=== PATIENT | female | born 1955 | race Caucasian/White ===

== ENCOUNTER 2017-07-30 08:00 | Outpatient (RCR) | payer MEDICARE, OTHER, SELFPAY | END 2017-07-30 23:59 | LOC: PT 08:00 | PROVIDERS: Visit Provider Orthopaedic Surgery | DX: M54.2 Cervicalgia (principal) | CPT/HCPCS: G8984; G8985; G8986; 97010; 97012; 97014; 97033; 97035; 97110; 97140; 97161; G0283 ==

== ENCOUNTER 2017-08-11 14:01 | Day surgery (SDC) | payer MEDICARE, OTHER, SELFPAY ==
[2017-08-11 14:55] VITALS: BP 137/63; PULSE 58; RESP 18; TEMP 36.6; O2SAT 95
--- NOTE | 2017-08-11 15:04 | HMH.PMPROC ---
- Procedure Date: 08/11/17 Time: 15:15 Anesthesiologist:: Emir Rubalcava CRNA Complications:: None Pre-procedure Diagnosis:: Myofascial pain syndrome Post-procedure Diagnosis:: Same Indications for Procedure:: Very pleasant 61-year-old white female we have been treating for cervical neck pain. She presents her procedure clinic today for her point injections of the cervical paraspinous muscles as well as bilateral trapezius muscles. Procedure Details:: Details of the procedure were spine to the patient. The patient was taken to procedure room and placed in the sitting position. Monitors were applied including noninvasive blood pressure cuff as well as pulse oximeter. The area over the cervical paraspinals as well as trapezius muscles was cleaned using chlorhexidine is cleansing solution. Markers were placed over the cervical paraspinous muscles and trapezius muscles bilaterally. 2 cc of solution containing 0.25% Marcaine +1% lidocaine and 40 mg of Depo-Medrol was injected in 3 different areas over the bilateral cervical paraspinous muscles as well as bilateral trapezius muscles. Plan and Disposition:: She will follow-up with the pain clinic for further evaluation.
[2017-08-11 15:10] VITALS: BP 134/88; PULSE 70; RESP 18
[2017-08-11 15:11] VITALS: BP 130/85; PULSE 80; RESP 20
[2017-08-11 15:13] VITALS: BP 137/63; PULSE 61; RESP 18; O2SAT 95
== END 2017-08-11 15:15 | disposition home or self-care (01) ==
LOC: SC.PAINP 14:03
PROVIDERS: Family Provider Internal Medicine Adolescent Medicine; PCP Internal Medicine Adolescent Medicine; Visit Provider Nurse Anesthetist, Certified Registered
DX: M79.1 Myalgia (principal)
CPT/HCPCS: 20552; J1040

== ENCOUNTER → 2017-08-17 10:51 | Outpatient (CLI) | payer MEDICARE, OTHER, SELFPAY ==
--- NOTE | 2017-08-17 10:55 | MR_ITS ---
MR HEAD/BRAIN WO/W CON ORDERING PHYSICIAN : Amy Jimenez PATIENT AGE: 61 years GENDER: Female INDICATION: Contrast and headaches all over head past 8 weeks.. Also Neck pain. Arm pain: C 6-7 STENOSIS, INCREASED HEADACHES Millimeter hemorrhagic, fingers TECHNIQUE: Precontrast multiplanar multisequence imaging performed. Specifically note T1, T2 weighted images along with FLAIR and diffusion image set utilized Precontrast. ProHance 20 mL used for the postcontrast image set , with subsequent T1 weighted images axial coronal plane FINDINGS Single chronic small vessel deep white matter focus. Specifically noted a small single less than 4 mm mm high signal deep white matter focus at the left frontal lobe just lateral to the anterior horn left lateral ventricle. Axial image 14 coronal 5. In this age patient age patient-most likely reflecting single small vessel ischemic gliotic focus No mass lesion. No territorial infarct. No abnormal areas of enhancement. The cranial cervical junction is normal. Pituitary sella at suprasellar region appears satisfactory. . Posterior fossa unremarkable.. Cerebellum normal Normal enhancement and normal flow at the dural venous sinuses . Mastoid air cells clear bilateral. IACs appear within normal limits and symmetric. Craniovertebral junction satisfactory.. Only Limited views of the uppermost C-spine down to the C3 level to, but I would note this patient with modest underlying volume of the osseous cervical canal at upper C-spine. Modest 11.5-12 mm AP dimension seen at cervical cranial junction at C1 level with similar adequate modest AP dimension throughout the upper C-spine... If cervical related symptoms consider MRI C-spine.. . Scalp and skull unremarkable. Globes, paranasal sinuses orbits unremarkable. Diffusion images unremarkable.. Moderate Engorgement the toes along the nasal turbinates noted bilaterally. ---- IMPRESSION: . No mass lesion. No abnormal areas of enhancement. No acute findings.. No prominent findings. Only Single chronic small vessel deep white ischemic/gliotic single focus noted at the left frontal lobe.. Otherwise unremarkable negative MRI brain with contrast Thank you for this referral.
--- NOTE | 2017-08-17 13:38 | HMH.ITSHM ---
ALBUTEROL 90MCG PHENEGRAN 12.5MG TRIAMCINOLONE TOPICAL DECARA ZITHROMAX Z-BERHANE 250MG LUNESTA 1MG HYDROMORPHONE 10MG LARROTRIGINE 100MG SODIUM BICARBONATE 650MG DONEPEZIL 10MG EFFEXOR XR 75 SEROQUEL 100MG RANITIDINE HYDROCHLORIDE 150MG LEVOTHYROXINE 88MCG RESTASIS LUTEIN 20MG DIAZEPAM 5MG CYCLOBENZAPRINE 5MG LISINOPRIL 2.5MG
== END ==
PROVIDERS: Family Provider Internal Medicine Adolescent Medicine; PCP Internal Medicine Adolescent Medicine; Visit Provider Orthopaedic Surgery
DX: M48.02 Spinal stenosis, cervical region (principal)
CPT/HCPCS: 70553; A9576

== ENCOUNTER 2017-08-19 13:57 | Day surgery (SDC) | payer MEDICARE, OTHER, SELFPAY ==
[2017-08-19 14:20] VITALS: BP 137/71; PULSE 64; RESP 18; O2SAT 94; BMI 35.2
[2017-08-19 15:37] VITALS: BP 128/83; PULSE 71; RESP 20; O2SAT 96
[2017-08-19 15:38] VITALS: BP 128/88; PULSE 63; RESP 20
--- NOTE | 2017-08-19 15:39 | HMH.PMPROC ---
- Procedure Date: 08/19/17 Time: 15:41 Anesthesiologist:: Sagar Kidd MD Complications:: None Pre-procedure Diagnosis:: Postlaminectomy syndrome Post-procedure Diagnosis:: Same Indications for Procedure:: Patient is a pleasant 61-year-old white female we are treating for low back pain secondary to lumbar postlaminectomy syndrome. Patient is currently on intrathecal pain pump therapy. She is currently at 6 mg per day of intrathecal Dilaudid/bupivacaine/ziconotide with 1.3 mcg per day ziconotide. She is still having some increasing pain of her neck and low back. She is scheduled to see Dr. Wood tomorrow for neurosurgical evaluation. We will refill her pump and increase her infusion today. She does have an antalgic gait. Motor strength of the upper and lower extremities is 5/5. There is no gross sensory deficit. We will refill her pump today. Procedure Details:: Informed consent was obtained and the risks and benefits of the procedure was explained to the patient. The patient was taken to the procedure room. The pump was interrogated. The area over the pump was prepped using ChloraPrep. The pump was accessed with a 22-gauge needle. Approximately 6 mL's of the intrathecal solution was withdrawn and discarded. The pump was then refilled with 20 mL's of intrathecal Dilaudid 23 mg/mL plus bupivacaine 9.2 mg/mL plus ziconotide 5 mcg/ml. The pump was interrogated and the infusion was increased to 7 mg per day Dilaudid, 2.8 mg per day bupivacaine, 1.5 mcg per day for ziconotide. The patient tolerated the procedure well with no complication. Plan and Disposition:: We will follow-up with her after her appointment Dr. Wood. She is to let us know of his treatment plan.
[2017-08-19 16:07] VITALS: BP 162/81; PULSE 77; RESP 16; O2SAT 100
== END 2017-08-19 16:09 | disposition home or self-care (01) ==
LOC: SC.PAINP 13:58
PROVIDERS: Family Provider Internal Medicine Adolescent Medicine; PCP Internal Medicine Adolescent Medicine; Visit Provider Nurse Anesthetist, Certified Registered
DX: M96.1 Postlaminectomy syndrome, not elsewhere classified (principal)
CPT/HCPCS: 62370

== ENCOUNTER 2017-08-20 13:00 | Outpatient (RCR) | payer MEDICARE, OTHER, SELFPAY | END 2017-08-20 13:01 | disposition home or self-care (01) | LOC: PT 13:00 | PROVIDERS: Family Provider Internal Medicine Adolescent Medicine; PCP Internal Medicine Adolescent Medicine; Visit Provider Orthopaedic Surgery | DX: M54.2 Cervicalgia (principal) | CPT/HCPCS: 97010; 97014; 97035; 97110; 97140; G0283 ==

== ENCOUNTER 2017-09-04 10:49 | Day surgery (SDC) | payer MEDICARE, OTHER, SELFPAY ==
[2017-09-04 10:58] VITALS: BP 111/78; PULSE 80; RESP 18; TEMP 36.7; O2SAT 96; BMI 34.4
--- NOTE | 2017-09-04 11:51 | HMH.PMPROC ---
- Procedure Date: 09/04/17 Time: 11:51 Anesthesiologist:: Sagar Kidd MD Complications:: None Pre-procedure Diagnosis:: Degenerative disc disease of the cervical spine with cervical radiculopathy symptoms. Post-procedure Diagnosis:: Same Indications for Procedure:: This patient is a pleasant 61-year-old white female who we are treating for neck pain and low back pain with degenerative disease of the cervical spinal cervical radiculopathy symptoms as well as postlaminectomy syndrome of the bar spine. She has an intrathecal Dilaudid/bupivacaine/ziconotide pain pump in place. She is doing well with her pump. It does help her low back pain. She is having some neck pain with cervical radiculopathy symptoms. We will do a cervical epidural steroid injection under fluoroscopy today. Procedure Details:: Cervical epidural steroid injection under fluoroscopy Informed consent was obtained and the risks and benefits of the procedure was explained to the patient. The patient was taken to the procedure room placed prone on the procedure table. The neck was prepped using ChloraPrep. The skin and subcutaneous tissues were anesthetized using lidocaine. I placed a 18-gauge epidural needle into the C6-C7 interspace and advanced using [id number] to air and fluoroscopic guidance. After confirmation of needle placement in the epidural space with dye, I injected 3 mL's lidocaine 1.5% and Depo-Medrol 80 mg. The patient tolerated the procedure well with no complications. Plan and Disposition:: Follow up with her in 2 weeks. She can resume physical therapy next week. We will reevaluate her symptoms at that time.
[2017-09-04 11:53] VITALS: BP 155/87; PULSE 87; RESP 18; O2SAT 98
[2017-09-04 11:54] VITALS: BP 156/86; PULSE 87; RESP 18; O2SAT 100
--- NOTE | 2017-09-04 11:59 | P.PCN_ITS ---
- Procedure Date: 09/04/17 Time: 11:51 Anesthesiologist:: Sagar Kidd MD Complications:: None Pre-procedure Diagnosis:: Degenerative disc disease of the cervical spine with cervical radiculopathy symptoms. Post-procedure Diagnosis:: Same Indications for Procedure:: This patient is a pleasant 61-year-old white female who we are treating for neck pain and low back pain with degenerative disease of the cervical spinal cervical radiculopathy symptoms as well as postlaminectomy syndrome of the bar spine. She has an intrathecal Dilaudid/bupivacaine/ziconotide pain pump in place. She is doing well with her pump. It does help her low back pain. She is having some neck pain with cervical radiculopathy symptoms. We will do a cervical epidural steroid injection under fluoroscopy today. Procedure Details:: Cervical epidural steroid injection under fluoroscopy Informed consent was obtained and the risks and benefits of the procedure was explained to the patient. The patient was taken to the procedure room placed prone on the procedure table. The neck was prepped using ChloraPrep. The skin and subcutaneous tissues were anesthetized using lidocaine. I placed a 18- gauge epidural needle into the C6-C7 interspace and advanced using loss-of- resistance to air and fluoroscopic guidance. After confirmation of needle placement in the epidural space with dye, I injected 3 mL's lidocaine 1.5% and Depo-Medrol 80 mg. The patient tolerated the procedure well with no complications. Plan and Disposition:: Follow up with her in 2 weeks. She can resume physical therapy next week. We will reevaluate her symptoms at that time.
[2017-09-04 12:10] VITALS: BP 149/82; PULSE 79; RESP 18; TEMP 36.7; O2SAT 96
== END 2017-09-04 12:15 ==
LOC: SC.PAINP 10:51
PROVIDERS: Family Provider Internal Medicine Adolescent Medicine; PCP Internal Medicine Adolescent Medicine; Visit Provider Anesthesiology
DX: M50.10 Cervical disc disorder with radiculopathy, unspecified cervical region (principal); M96.1 Postlaminectomy syndrome, not elsewhere classified
CPT/HCPCS: 62321; J1040; Q9966

== ENCOUNTER → 2017-09-15 12:56 | Outpatient (CLI) | payer MEDICARE, OTHER, SELFPAY ==
--- NOTE | 2017-09-15 12:59 | US_ITS ---
US retroperitoneal comp HISTORY: ITS.REASON: PROTEINURIA ORDERING PHYSICIAN: Aisha Jenkins PATIENT AGE: 61 years COMPARISON: None FINDINGS: RIGHT KIDNEY:10 x 4 x 7 cm with mild cortical thinning. No hydronephrosis or renal mass. LEFT KIDNEY:9 x 4 x 5 cm with mild cortical thinning. No hydronephrosis or renal mass. There is some scarring along the lower pole the left kidney OTHER FINDINGS: No other pertinent findings IMPRESSION: Mild renal cortical thinning. No hydronephrosis
== END ==
PROVIDERS: Family Provider Internal Medicine Adolescent Medicine; PCP Internal Medicine Adolescent Medicine; Visit Provider Hospitalist
DX: R80.9 Proteinuria, unspecified (principal)
CPT/HCPCS: 76770

== ENCOUNTER → 2017-09-25 10:31 | Day surgery (SDC) | payer MEDICARE, OTHER, SELFPAY ==
[2017-09-25 12:06] VITALS: BP 99/74; PULSE 73; RESP 20; TEMP 36.4; O2SAT 99; BMI 35.2
[2017-09-25 12:41] VITALS: BP 118/78; PULSE 83; RESP 18; O2SAT 98
[2017-09-25 12:44] VITALS: BP 151/81; PULSE 69; RESP 18; O2SAT 95
--- NOTE | 2017-09-25 12:53 | P.PCN_ITS ---
- Procedure Date: 09/25/17 Time: 12:44 Anesthesiologist:: Sagar Kidd MD Complications:: None Pre-procedure Diagnosis:: Degenerative disc disease of lumbar spine with lumbar radiculopathy symptoms. Degenerative disease of the cervical spine with cervical radiculopathy symptoms. Post-procedure Diagnosis:: Same Indications for Procedure:: This patient is a pleasant 61-year-old white female who we are treating for neck pain and low back pain with radiculopathy symptoms. She has an intrathecal Dilaudid/bupivacaine/ziconotide pain pump in place. She is doing well with her pump. She also recently had a cervical epidural steroid injection. This also did help her tremendously. We will refill her pump today. Currently is going at 7 mg per day of intrathecal Dilaudid/bupivacaine/ ziconotide. She does have a normal gait. Motor strength of the upper and lower extremities is 5/5. There is no gross sensory deficit. Procedure Details:: Pain pump refill informed consent was obtained and the risks and benefits of the procedure was explained to the patient. The patient was taken to the procedure room. The pump was interrogated. The area over the pump was prepped using ChloraPrep. The pump was accessed with a 22-gauge needle. Approximately 7 mL's of the intrathecal solution was withdrawn and discarded. The pump was then refilled with 20 mL's of intrathecal Dilaudid 23 mg per ml plus bupivacaine 9.2 mg/mL plus ziconotide 5 mcg per ml. The pump was interrogated and the infusion was continued at 7 mg per day based on Dilaudid. The patient tolerated the procedure well with no complication. Plan and Disposition:: We will schedule for a third cervical epidural steroid injection. She is to continue with her therapy for her neck pain. We will follow-up with her after her next epidural steroid injection. At her next pump refill, we will increase her intrathecal ziconotide concentration.
[2017-09-25 13:11] VITALS: BP 135/75; PULSE 66; RESP 20; TEMP 36.4; O2SAT 98
[2017-09-25 14:02] LABS: Amphetamine/Metha Screen,Urine Negative ng/mL (<1000); Barbiturates Screen,Urine Negative ng/mL (<200); Benzodiazepines Screen,Urine Positive ng/mL (200); Cannabinoid Screen,Urine Negative ng/mL (<50); Cocaine Screen,Urine Negative ng/g (<300); Methadone Screen,Urine Negative ng/mL (<300); Opiate Screen,Urine Positive ng/mL (<300); Phencyclidine Screen,Urine Negative ng/mL (<25)
[2017-09-30 13:13] LABS: Codeine Negative (Cutoff=100); Hydrocodone Negative (Cutoff=100); Hydromorphone Positive (.); Morphine Negative (Cutoff=100)
[2017-09-30 13:19] LABS: Opiates Positive (.)
== END ==
PROVIDERS: Family Provider Internal Medicine Adolescent Medicine; PCP Internal Medicine Adolescent Medicine; Visit Provider Anesthesiology
DX: M51.16 Intervertebral disc disorders with radiculopathy, lumbar region (principal); M50.10 Cervical disc disorder with radiculopathy, unspecified cervical region
CPT/HCPCS: 80305; 80361; 80365; 95991; G0480

== ENCOUNTER 2017-10-09 09:03 | Day surgery (SDC) | payer MEDICARE, OTHER, SELFPAY ==
[2017-10-09 09:22] VITALS: BP 143/81; PULSE 67; TEMP 36.4; O2SAT 94; BMI 35.2
[2017-10-09 10:15] VITALS: BP 156/83; PULSE 57; RESP 18
[2017-10-09 10:17] VITALS: RESP 20
[2017-10-09 10:19] VITALS: BP 174/110; PULSE 65; RESP 20
[2017-10-09 10:23] VITALS: BP 146/86; PULSE 63; RESP 18; TEMP 36.4; O2SAT 95
--- NOTE | 2017-10-09 10:28 | HMH.PMPROC ---
- Procedure Date: 10/09/17 Time: 10:28 Anesthesiologist:: Sagar Kidd MD Complications:: None Pre-procedure Diagnosis:: Degenerative disc disease of cervical spine with cervical radiculopathy symptoms Post-procedure Diagnosis:: Same Indications for Procedure:: This patient is a pleasant 61-year-old white female who we are treating for neck pain, low back pain with radiculopathy symptoms. She currently has an intrathecal Dilaudid/bupivacaine/ziconotide pain pump in place. She is having some neck pain with radicular symptoms into the right shoulder and right arm. We will do a cervical epidural steroid injection today. Her previous cervical epidural steroid injection helped her tremendously. Procedure Details:: Cervical epidural steroid injection under fluoroscopy Informed consent was obtained and the risks and benefits of the procedure was explained to the patient. The patient was taken to the procedure room placed prone on the procedure table. The neck was prepped using ChloraPrep. The skin and subcutaneous tissues were anesthetized using lidocaine. I placed a 18-gauge epidural needle into the C5-C6 interspace and advanced using [id number] to air and fluoroscopic guidance. After confirmation of needle placement in the epidural space with dye, I injected 3 mL's lidocaine 1.5% and Depo-Medrol 80 mg. The patient tolerated the procedure well with no complications. Plan and Disposition:: We will follow-up with her in 2 weeks. We will reevaluate her symptoms at that time. Again at her next pump refill. We will increase her intrathecal ziconotide concentration.
--- NOTE | 2017-10-09 10:43 | P.PCN_ITS ---
- Procedure Date: 10/09/17 Time: 10:28 Anesthesiologist:: Sagar Kidd MD Complications:: None Pre-procedure Diagnosis:: Degenerative disc disease of cervical spine with cervical radiculopathy symptoms Post-procedure Diagnosis:: Same Indications for Procedure:: This patient is a pleasant 61-year-old white female who we are treating for neck pain, low back pain with radiculopathy symptoms. She currently has an intrathecal Dilaudid/bupivacaine/ziconotide pain pump in place. She is having some neck pain with radicular symptoms into the right shoulder and right arm. We will do a cervical epidural steroid injection today. Her previous cervical epidural steroid injection helped her tremendously. Procedure Details:: Cervical epidural steroid injection under fluoroscopy Informed consent was obtained and the risks and benefits of the procedure was explained to the patient. The patient was taken to the procedure room placed prone on the procedure table. The neck was prepped using ChloraPrep. The skin and subcutaneous tissues were anesthetized using lidocaine. I placed a 18- gauge epidural needle into the C5-C6 interspace and advanced using loss-of- resistance to air and fluoroscopic guidance. After confirmation of needle placement in the epidural space with dye, I injected 3 mL's lidocaine 1.5% and Depo-Medrol 80 mg. The patient tolerated the procedure well with no complications. Plan and Disposition:: We will follow-up with her in 2 weeks. We will reevaluate her symptoms at that time. Again at her next pump refill. We will increase her intrathecal ziconotide concentration.
== END 2017-10-09 10:25 | disposition home or self-care (01) ==
LOC: SC.PAINP 09:04
PROVIDERS: Family Provider Internal Medicine Adolescent Medicine; PCP Internal Medicine Adolescent Medicine; Visit Provider Anesthesiology
DX: M50.10 Cervical disc disorder with radiculopathy, unspecified cervical region (principal)
CPT/HCPCS: 62321; J1040; Q9966

== ENCOUNTER 2017-10-12 05:55 | Emergency (ER) | payer MEDICARE, OTHER, SELFPAY ==
[2017-10-12 05:56] VITALS: BP 161/122; PULSE 119; RESP 20; TEMP 36.8; O2SAT 96; BMI 34.4
--- NOTE | 2017-10-12 06:08 | PC.NURSE ---
UNABLE TO OBTAIN ACCURATE BP DUE TO PT WITH MOVEMENT AND PAIN.
--- NOTE | 2017-10-12 06:17 | HMH.EDLOEX ---
ED Disposition Clinical Impression: Lumbar disc disease with radiculopathy Disposition: Home, Self-Care Condition on Discharge: Good Instructions: DI for Low Back Pain Additional Instructions: see dr orourke this am Referrals: Marc Rodriguez MD [Primary Care Provider] - - Critical Care Critical Care Time: No Attestation: On 10/12/17, the high probability of a clinically significant, sudden or life threatening deterioration of the following system(s) required my full and direct attention, intervention and personal management. The time I documented below is in addition to time spent performing reported procedures but includes the following listed in this critical care notation. Medical Decision Making - Medical Records Medical records reviewed: Yes: I reviewed the patient's medical records. Vital Signs: 10/12/17 05:56 10/12/17 07:44 Temperature 98.2 F Temperature Source Oral Pulse Rate [Left Brachial] 119 H 66 Respiratory Rate 20 16 Blood Pressure [Left Arm] 161/122 136/64 Blood Pressure Mean [Left Arm] 135 88 Blood Pressure Source [Left Arm] Automatic Cuff Automatic Cuff Blood Pressure Position [Left Arm] Sitting Sitting 02 Sat by Pulse Oximetry 96 96 Oxygen Delivery Method Room Air Room Air - Lab Data Lab results reviewed: Yes: I reviewed the patient's lab results. Lab Results 10/12/17 06:25: WBC 6.9, RBC 4.47, Hgb 13.9, Hct 43.5, MCV 97.3, MCH 31.2, MCHC 32.0, RDW 13.7, Plt Count 280, MPV 7.6, Neut % (Auto) 69.8, Lymph % (Auto) 23.3, [place] % (Auto) 5.8, Eos % (Auto) 0.6, Baso % (Auto) 0.4, Neut # (Auto) 4.8, Lymph # (Auto) 1.6, [place] # (Auto) 0.4, Eos # (Auto) 0.0, Baso # (Auto) 0.0 10/12/17 06:25: Sodium 147 H, Potassium 3.9, Chloride 108 H, Carbon Dioxide 27, Anion Gap 15.9 H, BUN 23 H, Creatinine 1.14 H, Estimated Creat Clear 80, Estimated GFR 48 L, Est GFR ( Amer) 58 L, Glucose 114 H, Calcium 9.9, Total Bilirubin 0.3, AST 19, ALT 35, Alkaline Phosphatase 107, Total Protein 8.0, Albumin 3.8, Globulin 4.2 H, Albumin/Globulin Ratio 0.9 L Result diagrams: 10/12/17 06:25 10/12/17 06:25 Orders (Tests/Meds): ED MEDICATIONS Generic Name Dose Route Start Last Admin Trade Name Pradeepq PRN Reason Stop Dose Admin Sodium Chloride 2 ml 10/12/17 06:24 10/12/17 06:37 Saline Flush 10ml Syringe IV 11/11/17 06:23 2 ml NEEDED PRN Administration to Dilute Lorazepam inj Discontinued Medications Generic Name Dose Route Start Last Admin Trade Name Pradeepq PRN Reason Stop Dose Admin Ketorolac Tromethamine 30 mg 10/12/17 06:24 10/12/17 06:37 Toradol 30mg/Ml Vial IV 10/12/17 06:25 30 mg ONCE ONE Administration Lorazepam 0.5 mg 10/12/17 06:24 10/12/17 06:36 Ativan 2mg/Ml Vial IV 10/12/17 06:25 0.5 mg ONCE ONE Administration Meperidine HCl 25 mg 10/12/17 07:22 Meperidine 25mg/Ml 1ml Syringe IV 10/12/17 07:23 ONCE ONE Meperidine HCl 25 mg 10/12/17 07:34 10/12/17 07:40 Meperidine 75mg/Ml 1ml Syringe IV 10/12/17 07:35 25 mg ONCE ONE Administration Methylprednisolone Sodium Succinate 125 mg 10/12/17 06:33 10/12/17 06:37 Solu-Medrol 125mg/2ml Vial IV 10/12/17 06:34 125 mg ONCE ONE Administration Promethazine HCl 12.5 mg 10/12/17 07:22 10/12/17 07:39 Phenergan 25mg/Ml 1ml Vial IV 10/12/17 07:23 12.5 mg ONCE ONE Administration Sodium Chloride 25 ml 10/12/17 07:22 10/12/17 07:41 Sod Chlor 0.9% 25ml Bag IV 10/12/17 07:23 Not Given ONCE ONE ORDERS Category Date Time Status CT lumbar spine wo con Stat Cat Scan 10/12/17 06:22 Taken CBC [Complete Blood Count Auto Diff] Stat Lab 10/12/17 06:25 Results ESR [Erythrocyte Sedimentation Rate] Stat Lab 10/12/17 06:25 Results - Radiology Data #1 Image(s): Tib/Fib Image Reviewed: Yes I reviewed the patient's radiology image Preliminary Findings: No Fracture Seen - CT Data CT Scan: L-Spine Time Received: 07:[address] Reviewed: Yes: I have jeremíase
--- NOTE | 2017-10-12 06:21 | ED_ITS ---
ED Disposition Clinical Impression: Lumbar disc disease with radiculopathy Disposition: Home, Self-Care Condition on Discharge: Good Instructions: DI for Low Back Pain Additional Instructions: see dr orourke this am Referrals: Marc Rodriguez MD [Primary Care Provider] - - Critical Care Critical Care Time: No Attestation: On 10/12/17, the high probability of a clinically significant, sudden or life threatening deterioration of the following system(s) required my full and direct attention, intervention and personal management. The time I documented below is in addition to time spent performing reported procedures but includes the following listed in this critical care notation. Medical Decision Making - Medical Records Medical records reviewed: Yes: I reviewed the patient's medical records. Vital Signs: 10/12/17 05:56 10/12/17 07:44 Temperature 98.2 F Temperature Source Oral Pulse Rate [Left Brachial] 119 H 66 Respiratory Rate 20 16 Blood Pressure [Left Arm] 161/122 136/64 Blood Pressure Mean [Left Arm] 135 88 Blood Pressure Source [Left Arm] Automatic Cuff Automatic Cuff Blood Pressure Position [Left Arm] Sitting Sitting 02 Sat by Pulse Oximetry 96 96 Oxygen Delivery Method Room Air Room Air - Lab Data Lab results reviewed: Yes: I reviewed the patient's lab results. Lab Results 10/12/17 06:25: WBC 6.9, RBC 4.47, Hgb 13.9, Hct 43.5, MCV 97.3, MCH 31.2, MCHC 32.0, RDW 13.7, Plt Count 280, MPV 7.6, Neut % (Auto) 69.8, Lymph % (Auto) 23.3 , [place] % (Auto) 5.8, Eos % (Auto) 0.6, Baso % (Auto) 0.4, Neut # (Auto) 4.8, Lymph # (Auto) 1.6, [place] # (Auto) 0.4, Eos # (Auto) 0.0, Baso # (Auto) 0.0 10/12/17 06:25: Sodium 147 H, Potassium 3.9, Chloride 108 H, Carbon Dioxide 27, Anion Gap 15.9 H, BUN 23 H, Creatinine 1.14 H, Estimated Creat Clear 80, Estimated GFR 48 L, Est GFR ( Amer) 58 L, Glucose 114 H, Calcium 9.9, Total Bilirubin 0.3, AST 19, ALT 35, Alkaline Phosphatase 107, Total Protein 8.0 , Albumin 3.8, Globulin 4.2 H, Albumin/Globulin Ratio 0.9 L Result diagrams: 10/12/17 06:25 10/12/17 06:25 Orders (Tests/Meds): ED MEDICATIONS Generic Name Dose Route Start Last Admin Trade Name Freq PRN Reason Stop Dose Admin Sodium Chloride 2 ml 10/12/17 06:24 10/12/17 06:37 Saline Flush 10ml Syringe IV 11/11/17 06:23 2 ml NEEDED PRN Administration to Dilute Lorazepam inj Discontinued Medications Generic Name Dose Route Start Last Admin Trade Name Freq PRN Reason Stop Dose Admin Ketorolac Tromethamine 30 mg 10/12/17 06:24 10/12/17 06:37 Toradol 30mg/Ml Vial IV 10/12/17 06:25 30 mg ONCE ONE Administration Lorazepam 0.5 mg 10/12/17 06:24 10/12/17 06:36 Ativan 2mg/Ml Vial IV 10/12/17 06:25 0.5 mg ONCE ONE Administration Meperidine HCl 25 mg 10/12/17 07:22 Meperidine 25mg/Ml 1ml Syringe IV 10/12/17 07:23 ONCE ONE Meperidine HCl 25 mg 10/12/17 07:34 10/12/17 07:40 Meperidine 75mg/Ml 1ml Syringe IV 10/12/17 07:35 25 mg ONCE ONE Administration Methylprednisolone Sodium Succinate 125 mg 10/12/17 06:33 10/12/17 06:37 Solu-Medrol 125mg/2ml Vial IV 10/12/17 06:34 125 mg ONCE ONE Administration Promethazine HCl 12.5 mg 10/12/17 07:22 10/12/17 07:39 Phenergan 25mg/Ml 1ml Vial IV
--- NOTE | 2017-10-12 06:22 | CT_ITS ---
CT lumbar spine wo con Ordering Physician: Ollie Milton MD Patient Age: 61 years: Female HISTORY: ITS.REASON: back/leg pain Back and leg pain left leg pain no trauma TECHNIQUE: Axial helical CT scanning performed through the lumbar spine with sagittal coronal reconstructions on CT workstation. Vertebral bodies are intact with no compression fractures no significant lesions. Minimal Schmorl's node inferior L2 with scant barely evident Schmorl's node inferior L1 and T12 inferior endplate. There is mild levoscoliosis most evident. L4/5. L5/S1. Borderline disc space narrowing with mild central disc bulge continue to left of midline. May just text the left S1 nerve root. Mild encroachment upon the left foramen mild facet hypertrophy associated as well. Moderate facet hypertrophy, arthropathy. pain pump device projected over the upper right buttock L4/5 diffuse disc bulge. Mild bilateral foraminal encroachment from such. Facet and ligament flavum hypertrophy along with the disc bulge yields moderate central canal stenosis. L3/4. Scant circumferential disc bulge posteriorly. Mild foraminal encroachment. Mild posterior element ligament flavum hypertrophy yields borderline to mild central canal stenosis. L2/3. Mild facet hypertrophy slightly narrows the spinal canal borderline spinal stenosis. Scant disc bulge most evident towards left foramen. L1/2 disc intactOnly slight narrowed posteriorly. The infusion catheter extending up to the T12 level. Transverse processes are intact no paraspinal mass. SI joints satisfactory sacrum satisfactory there appears to be anastomosis at the rectosigmoid junction region. Heart IMPRESSION: 1. No acute findings lumbar spine. No lesion or compression fracture. 2. Degenerative changes lumbar spineAs discussed above. L4/5 spinal stenosis most evident at this level. This is due to the diffuse generous disc bulge along with generous ligament flavum & and facet hypertrophy. 3 Other levels described in text pain pump. Overlying superior right buttocks epidural catheter extending up to the T12 level noted.
--- NOTE | 2017-10-12 06:26 | XR_ITS ---
XR tibia fibula LT 2V Ordering Physician: Ollie Milton MD Patient Age: 61 years: Female HISTORY: ITS.REASON: pain COMPARISON :None. FINDINGS TECHNIQUE Two-view left lower leg Findings. The tibia and fibula are intact with no prior. Bones adequately mineralized. 2 views of the knee and ankle are included on this lower leg series. Limited views of the show early degenerative changes most evident at medial compartment. No acute findings at these limited views of knee or ankle IMPRESSION: Negative left lower leg. No fracture.
[2017-10-12 06:49] LABS: Basophils % 0.4 % (0.1-2.0); Eosinophils % 0.6 % (0.1-12.0); Hematocrit 43.5 % (37.0-47.0); Hemoglobin 13.9 g/dL (12.2-16.2); Lymphocytes # 1.6 K/mm3 (0.7-4.5); Lymphocytes % 23.3 K/mm3 (10-50); Mean Corpuscular Hemoglobin 31.2 pg (27.0-31.2); Mean Corpuscular Volume 97.3 fl (81-99); Mean Platelet Volume 7.6 fl (7.4-10.4); Monocytes # 0.4 K/mm3 (0.1-1.0); Monocytes % 5.8 % (1.7-9.3); Neutrophils # 4.8 K/mm3 (1.8-7.8); Neutrophils % 69.8 % (37.0-80.0); Platelet Count 280 K/mm3 (142-424); Red Blood Count 4.47 M/mm3 (4.20-5.40); Red Cell Distribution Width 13.7 % (11.5-17.5); White Blood Count 6.9 K/mm3 (4.8-10.8)
[2017-10-12 07:03] LABS: Alanine Aminotransferase 35 U/L (12-78); Albumin Level 3.8 gm/dL (3.4-5.0); Albumin/Globulin Ratio 0.9 (1.1-1.8); Alkaline Phosphatase 107 U/L (46-116); Anion Gap 15.9 mEq/L (5-15); Aspartate Amino Transferase 19 U/L (15-37); Bilirubin,Total 0.3 mg/dL (0.2-1.0); Blood Urea Nitrogen 23 mg/dL (7-18); Calcium 9.9 mg/dL (8.5-10.1); Carbon Dioxide 27 mmol/L (21.0-32.0); Chloride 108 mmol/L (98-107); Creatinine Clearance Estimated 80 mL/min (0-300); Creatinine,Serum 1.14 mg/dL (0.55-1.02); Estimated Glomerular Filt Rate 48 ml/min (>60); GFR (African American) 58 ML/MIN (>60); Globulin 4.2 gm/dl (1.3-3.2); Glucose 114 mg/dL (74-106); Potassium 3.9 mmoL/L (3.5-5.1); Sodium 147 mmol/L (136-145)
--- NOTE | 2017-10-12 07:30 | PC.NURSE ---
report recieved from NICOLASA Dewitt at shift change
--- NOTE | 2017-10-12 07:43 | PC.NURSE ---
Dr Milton speaking with Dr Kidd.
[2017-10-12 07:44] VITALS: BP 136/64; PULSE 66; RESP 16; O2SAT 96
--- NOTE | 2017-10-12 07:46 | PC.NURSE ---
Pt to be discharged and go to Dr. Kidd office.
[2017-10-12 07:50] LABS: Erythrocyte Sedimentation Rate 41 mm/hr (0-30)
[2017-10-12 08:14] VITALS: BP 141/71; PULSE 70; RESP 16; TEMP 36.7; O2SAT 98
== END 2017-10-12 08:14 | disposition home or self-care (01) ==
PROVIDERS: Emergency Provider Emergency Medicine; Family Provider Internal Medicine Adolescent Medicine; PCP Internal Medicine Adolescent Medicine
DX: M51.16 Intervertebral disc disorders with radiculopathy, lumbar region (principal); E78.5 Hyperlipidemia, unspecified; R56.9 Unspecified convulsions; Z79.899 Other long term (current) drug therapy; Z88.1 Allergy status to other antibiotic agents; Z88.6 Allergy status to analgesic agent
CPT/HCPCS: 72131; 73590; 80053; 85025; 85651; 96374; 96375; 99212; 99283

== ENCOUNTER → 2017-10-12 08:29 | Outpatient (POV) | payer MEDICARE, OTHER, SELFPAY ==
[2017-10-12 08:49] VITALS: BP 148/87; PULSE 66; RESP 20; BMI 344531.0
--- NOTE | 2017-10-12 09:16 | HMH.PAINSOAP ---
[facility] Pain Management SOAP Note Subjective:: She is a pleasant 61-year-old white female who presents today for an emergency room visit due to increased left leg pain. This pain is different than her typical neck and back pain. She is having electric shocklike pain from above the knee to the ankle on her left leg. This pain began in the morning after she got up to go the bathroom. Patient had a CT report in the ER that did not show any new pathology. Patient is currently on intrathecal pain pump with Dilaudid 7 mg a day, bupivacaine 2.8 mg a day and Prialt 1.5 mcg a day. Patient went to the ER and received Demerol, Ativan, Solu-Medrol. Patient states that her pain is relieved a little bit at this time. Patient rates her pain a 10 out of 10 when it occurs. It is intermittent in nature. Patient's leg is hypersensitive she is unable to have clothing touch her leg. Objective:: Physical Exam General: Alert and oriented x3, no acute distress, pleasant and cooperative, [on room air] Lungs: Resps E/U, Symmetrical chest expansion, Eyes: PERRL Musculoskeletal: Flexion and extension of lumbar and cervical spine somewhat guarded secondary to pain, deep tendon reflexes normal, strength in upper and lower extremities [5/5], [abnormal gait noted] Neurological: speech clear, keno clerk equal, no gross sensory deficits Assessment:: Active disc disease of the cervical spine and cervical radiculopathy, postlaminectomy, fibromyalgia Plan:: Given the nature of the pain we will start the patient on gabapentin 300 mg 1 p.o. 3 times daily. She is taking this in the past and tolerated it without side effects. We will also give her tramadol 1-2 tabs 3 times daily for 2 weeks. We will also start Flexeril 10 mg 1 p.o. 3 times daily as needed. The patient and I discussed the possibility of shingles. Patient has had the vaccination. Patient will contact her office if the rash breaks out and we will start her on acyclovir. I spoke with Dr. Kidd in regards to this treatment plan he will follow up with her on Thursday. This note was dictated using voice recognition software and may contain errors or omissions
--- NOTE | 2017-10-12 09:22 | P.CONS_ITS ---
[facility] Pain Management SOAP Note Subjective:: She is a pleasant 61-year-old white female who presents today for an emergency room visit due to increased left leg pain. This pain is different than her typical neck and back pain. She is having electric shocklike pain from above the knee to the ankle on her left leg. This pain began in the morning after she got up to go the bathroom. Patient had a CT report in the ER that did not show any new pathology. Patient is currently on intrathecal pain pump with Dilaudid 7 mg a day, bupivacaine 2.8 mg a day and Prialt 1.5 mcg a day. Patient went to the ER and received Demerol, Ativan, Solu-Medrol. Patient states that her pain is relieved a little bit at this time. Patient rates her pain a 10 out of 10 when it occurs. It is intermittent in nature. Patient's leg is hypersensitive she is unable to have clothing touch her leg. Objective:: Physical Exam General: Alert and oriented x3, no acute distress, pleasant and cooperative, [ on room air] Lungs: Resps E/U, Symmetrical chest expansion, Eyes: PERRL Musculoskeletal: Flexion and extension of lumbar and cervical spine somewhat guarded secondary to pain, deep tendon reflexes normal, strength in upper and lower extremities [5/5], [abnormal gait noted] Neurological: speech clear, software tools build engineer equal, no gross sensory deficits Assessment:: Active disc disease of the cervical spine and cervical radiculopathy, postlaminectomy, fibromyalgia Plan:: Given the nature of the pain we will start the patient on gabapentin 300 mg 1 p.o. 3 times daily. She is taking this in the past and tolerated it without side effects. We will also give her tramadol 1-2 tabs 3 times daily for 2 weeks. We will also start Flexeril 10 mg 1 p.o. 3 times daily as needed. The patient and I discussed the possibility of shingles. Patient has had the vaccination. Patient will contact her office if the rash breaks out and we will start her on acyclovir. I spoke with Dr. Kidd in regards to this treatment plan he will follow up with her on Thursday. This note was dictated using voice recognition software and may contain errors or omissions
--- NOTE | 2017-10-12 16:32 | PC.PHONENOTE ---
called in Rx for Gabapentin 300mg TID with no refills, Tramadol 50mg, 1-2 tab TIDP #30 with no refills and Flexeril 10mg TIDP #60 with no refills to [facility] [place]
== END ==
PROVIDERS: Family Provider Internal Medicine Adolescent Medicine; PCP Internal Medicine Adolescent Medicine; Visit Provider Clinical Nurse Specialist Family Health
DX: M54.16 Radiculopathy, lumbar region (principal); M79.7 Fibromyalgia
CPT/HCPCS: 99212

== ENCOUNTER → 2017-10-19 09:24 | Outpatient (POV) | payer MEDICARE, OTHER, SELFPAY ==
[2017-10-19 09:36] VITALS: BP 104/56; PULSE 63; RESP 18; O2SAT 94; BMI 35.2
--- NOTE | 2017-10-19 09:44 | HMH.PAINSOAP ---
[facility] Pain Management SOAP Note Subjective:: This patient is a pleasant 61-year-old white female who we are treating for neck pain and low back pain. She currently has an intrathecal pain pump with Dilaudid going at 7 mg a day, bupivacaine 2.8 mg a day and Prialt at 1.5 mcg per day. She had some acute onset of left leg pain which was a shocklike pain from above the knee to her ankle. She was assessed by the emergency room and she has no evidence of DVT. She also had a CT scan which no evidence of herniated disc or any changes in her spine. She was started on gabapentin 300 mg 3 times a day as well as Flexeril 10 mg 3 times a day. She is doing much better today. She still has some residual pain however it is not as bad as previous. I talked to her about increasing her gabapentin to 300 mg 4 times a day as this may help more with her radicular symptoms. She does have enough gabapentin left however on her next refill we will call her in gabapentin 300 mg 4 times a day. She also had a cervical epidural steroid injection series of 3 which did not give her much long-term benefit. This does help some but she has much more mobility in the cervical spine however she still has some pain. She is to follow-up with Dr. Wood concerning possible surgery. Her Romeo and urine drug screen are all appropriate[id number] Objective:: Alert and oriented ?3 no acute distress. Motor strength of the upper and lower extremities is 5/5. There is no gross sensory deficit. Good range of motion of the cervical spine. Minimal tenderness now of left lower leg. Assessment:: Degenerative disc disease of lumbar spine with lumbar radiculopathy symptoms. Degenerative disease of the cervical spine with cervical radiculopathy symptoms and postlaminectomy syndrome of the cervical spine. Plan:: We have recommended increasing her gabapentin 300 mg to 4 times a day. She is to continue with her Flexeril 10 mg 3 times a day. We will also continue intrathecal Dilaudid/bupivacaine/Prialt pain pump at 7 mg a day. We will also follow-up after she sees Dr. Wood concerning her neck.
== END ==
PROVIDERS: Family Provider Internal Medicine Adolescent Medicine; PCP Internal Medicine Adolescent Medicine; Visit Provider Anesthesiology
DX: M54.16 Radiculopathy, lumbar region (principal)
CPT/HCPCS: 99212

== ENCOUNTER → 2017-10-27 10:01 | Outpatient (CLI) | payer MEDICARE, OTHER, SELFPAY ==
--- NOTE | 2017-10-27 10:10 | XR_ITS ---
XR chest 2V HISTORY: ITS.REASON: COUGH ORDERING PHYSICIAN: Marc Rodriguez MD PATIENT AGE: 61 years COMPARISON: 06/27/2017 FINDINGS: Borderline cardiomegaly without failure. No lobar consolidation or collapse. No acute bony anomalies. Previously noted bibasilar alveolar disease has improved compared to the previous exam IMPRESSION: No acute finding.
== END ==
PROVIDERS: PCP Internal Medicine Adolescent Medicine; Visit Provider Internal Medicine Adolescent Medicine
DX: R05 Cough (principal)
CPT/HCPCS: 71046

== ENCOUNTER 2017-11-06 10:57 | Day surgery (SDC) | payer MEDICARE, OTHER, SELFPAY ==
[2017-11-06 11:06] VITALS: BP 94/62; PULSE 77; RESP 18; TEMP 36.8; O2SAT 96; BMI 35.2
[2017-11-06 11:36] VITALS: BP 106/70; PULSE 72; RESP 18; O2SAT 99
--- NOTE | 2017-11-06 11:40 | P.PCN_ITS ---
- Procedure Date: 11/06/17 Time: 11:37 Anesthesiologist:: Sagar Kidd MD Complications:: None Pre-procedure Diagnosis:: Degenerative disc disease of lumbar spine with lumbar radiculopathy symptoms. Degenerative disc disease of cervical spine with cervical radiculopathy symptoms and postlaminectomy syndrome of the cervical spine. Post-procedure Diagnosis:: Same Indications for Procedure:: This patient is a pleasant 61-year-old white female who we are treating for neck pain and low back pain. She currently has an intrathecal Dilaudid/ bupivacaine/ziconotide pain pump going at 7 mg per day. She presents for pump refill today. Her left leg pain is somewhat better. She continues on gabapentin 300 mg 4 times a day. She will see Dr. Wood next week concerning her neck pain and possible surgery we will refill her pump today. She does have an antalgic gait. Moderate of the upper and lower extremities is 5/5. There is no gross sensory deficit. We have increased her prialt concentration and will make adjustments to her pain pump. We have changed concentrations to Dilaudid 16.4 mg/mL plus bupivacaine 9.2 mg/mL plus ziconotide 6.5 mcg per ml. We will start her 6 mg per day of Dilaudid, bupivacaine 3.3 mg per day and Prialt 2.3 mcg per day. Procedure Details:: Pump refill Informed consent was obtained and the risks and benefits of the procedure was explained to the patient. The patient was taken to the procedure room. The pump was interrogated. The area over the pump was prepped using ChloraPrep. The pump was accessed with a 22-gauge needle. Approximately 6 mL's of the intrathecal solution was withdrawn and discarded. The pump was then refilled with 20 mL's of intrathecal Dilaudid 16.4 mg/mL plus bupivacaine 9.2 mg/mL plus Prialt 6.5 mcg per ml. The pump was interrogated and the infusion was adjusted to Dilaudid 6 mg per day, bupivacaine 3.3 mg per day and Prialt 2.3 mcg per day. PTM remains the same at Dilaudid 0.6 mg and Prialt 0.13 mcg up to 3 times a day with a 3 hour lockout. The patient tolerated the procedure well with no complication. Plan and Disposition:: We will follow-up with her in 2 weeks. We will reevaluate her symptoms at that time make further adjustments if needed.
[2017-11-06 11:42] VITALS: BP 111/68; PULSE 80; RESP 20
[2017-11-06 11:50] VITALS: BP 119/73; PULSE 77; RESP 18; O2SAT 94
== END 2017-11-06 11:53 | disposition home or self-care (01) ==
LOC: SC.PAINP 10:58
PROVIDERS: Family Provider Internal Medicine Adolescent Medicine; PCP Internal Medicine Adolescent Medicine; Visit Provider Anesthesiology
DX: M51.16 Intervertebral disc disorders with radiculopathy, lumbar region (principal); M96.1 Postlaminectomy syndrome, not elsewhere classified; M50.10 Cervical disc disorder with radiculopathy, unspecified cervical region
CPT/HCPCS: 62370

== ENCOUNTER 2017-11-10 08:00 | Outpatient (RCR) | payer MEDICARE, OTHER, SELFPAY | END 2017-11-10 08:01 | disposition home or self-care (01) | LOC: PT 08:00 | PROVIDERS: Family Provider Internal Medicine Adolescent Medicine; PCP Internal Medicine Adolescent Medicine; Visit Provider Orthopaedic Surgery | DX: M50.10 Cervical disc disorder with radiculopathy, unspecified cervical region (principal); M54.2 Cervicalgia | CPT/HCPCS: 97010; 97012; 97014; 97033; 97035; 97110; 97140; 97164; G0283 ==

== ENCOUNTER → 2017-11-23 08:59 | Outpatient (POV) | payer MEDICARE, OTHER, SELFPAY ==
--- NOTE | 2017-11-23 09:29 | HMH.PAINSOAP ---
[facility] Pain Management SOAP Note Subjective:: Is a pleasant 62-year-old white female who presents today for follow-up after cervical epidural steroid injection. Patient states that she got no relief from the injection. Patient was seen by Dr. Wood and told that she was a surgical candidate. Patient will be going to see Dr. Dawkins for second opinion. Patient is still having some electric-like shocking in her left leg from her knee to her toes. Patient has not been able to tolerate her gabapentin dose due to it being too high. Patient also states that she is having headaches and right arm numbness to her fingers. I believe this is related to her neck. Patient is also on intrathecal therapy patient has a hydromorphone/bupivacaine/Prialt pump. Patient rates her pain a 7 out of 10 today. ROS General: no recent weight change, no fever, no sleep disturbances Respiratory: no cough, no shortness of air, no recurring pulmonary infections Cardiovascular/Peripheral Vascular: No chest pain, No palpitations, no edema, no shortness of breath. Gastrointestinal: no incontinence, normal bowel movements reported Genitourinary: no incontinence Musculoskeletal: Neck pain, back pain, left leg pain, right arm pain Psychiatric: normal mood/ affect Neurological: [denies weakness in extremities], [denies balance issues] Objective:: Physical Exam General: Alert and oriented x3, no acute distress, pleasant and cooperative, [on room air] Lungs: Resps E/U, Symmetrical chest expansion, Eyes: PERRL Musculoskeletal: Flexion and extension of cervical and lumbar spine somewhat guarded secondary to pain, deep tendon reflexes normal, strength in upper and lower extremities [5/5], [abnormal gait noted] Neurological: speech clear, cooling tower operator equal, no gross sensory deficits Assessment:: Degenerative disc disease of the lumbar spine with lumbar radiculopathy symptoms. Degenerative disc disease of the cervical spine also radiculopathy symptoms and postlaminectomy syndrome of the cervical spine Plan:: We will start the pain on gabapentin 100 mg 1 p.o. twice daily. We will see if she can tolerate this. Patient is going to let us know after she is seen Dr. Dawkins. Patient will come for her pain pump refill next month. Rubén has reviewed this chart and agrees with this plan of care. This note was dictated using voice recognition software and may contain errors or omissions
--- NOTE | 2017-11-23 09:33 | P.CONS_ITS ---
[facility] Pain Management SOAP Note Subjective:: Is a pleasant 62-year-old white female who presents today for follow-up after cervical epidural steroid injection. Patient states that she got no relief from the injection. Patient was seen by Dr. Wood and told that she was a surgical candidate. Patient will be going to see Dr. Dawkins for second opinion. Patient is still having some electric-like shocking in her left leg from her knee to her toes. Patient has not been able to tolerate her gabapentin dose due to it being too high. Patient also states that she is having headaches and right arm numbness to her fingers. I believe this is related to her neck. Patient is also on intrathecal therapy patient has a hydromorphone/bupivacaine/ Prialt pump. Patient rates her pain a 7 out of 10 today. ROS General: no recent weight change, no fever, no sleep disturbances Respiratory: no cough, no shortness of air, no recurring pulmonary infections Cardiovascular/Peripheral Vascular: No chest pain, No palpitations, no edema, no shortness of breath. Gastrointestinal: no incontinence, normal bowel movements reported Genitourinary: no incontinence Musculoskeletal: Neck pain, back pain, left leg pain, right arm pain Psychiatric: normal mood/ affect Neurological: [denies weakness in extremities], [denies balance issues] Objective:: Physical Exam General: Alert and oriented x3, no acute distress, pleasant and cooperative, [ on room air] Lungs: Resps E/U, Symmetrical chest expansion, Eyes: PERRL Musculoskeletal: Flexion and extension of cervical and lumbar spine somewhat guarded secondary to pain, deep tendon reflexes normal, strength in upper and lower extremities [5/5], [abnormal gait noted] Neurological: speech clear, sales specialist equal, no gross sensory deficits Assessment:: Degenerative disc disease of the lumbar spine with lumbar radiculopathy symptoms. Degenerative disc disease of the cervical spine also radiculopathy symptoms and postlaminectomy syndrome of the cervical spine Plan:: We will start the pain on gabapentin 100 mg 1 p.o. twice daily. We will see if she can tolerate this. Patient is going to let us know after she is seen Dr. Dawkins. Patient will come for her pain pump refill next month. Rubén has reviewed this chart and agrees with this plan of care. This note was dictated using voice recognition software and may contain errors or omissions
[2017-11-23 09:37] VITALS: BP 125/61; PULSE 85; RESP 20; BMI 36.6
--- NOTE | 2017-11-24 14:27 | PC.PHONENOTE ---
11/23/17-called in Rx for Gabapentin 100mg BID with 2 refills per provider order
== END ==
PROVIDERS: Family Provider Internal Medicine Adolescent Medicine; PCP Internal Medicine Adolescent Medicine; Visit Provider Clinical Nurse Specialist Family Health
DX: M54.16 Radiculopathy, lumbar region (principal); M54.12 Radiculopathy, cervical region
CPT/HCPCS: 99212

== ENCOUNTER → 2017-11-30 11:29 | Outpatient (POV) | payer MEDICARE, OTHER, SELFPAY ==
[2017-11-30 11:55] VITALS: BP 146/70; PULSE 77; RESP 18; TEMP 36.6; O2SAT 99; BMI 36.0
--- NOTE | 2017-11-30 12:20 | HMH.PAINSOAP ---
[facility] Pain Management SOAP Note Subjective:: Patient is a pleasant 62-year-old white female who we are treating for neck pain, low back pain and lumbar radiculopathy symptoms. She does have an intrathecal pain pump in place. She is doing well with her pump. She has some increasing pain over her right hip. She is tender over the right SI joint. Her leg seems to give way when she walks. She also has some occasional electrical type symptoms down her leg however the gabapentin is helping. She is currently on gabapentin 100 mg twice a day. Pain score is a 7 out of 10 today. Most of the pain is in the low back and right hip. We will seek approval for a right SI joint injection as I believe this is a source of a lot of her pain. We will also increase her gabapentin to 100 mg in the morning and 200 mg at night. We will give her a new prescription for gabapentin. Objective:: Alert and oriented ?3 in no acute distress. Patient does have an antalgic gait. Tenderness over the right SI joint. Positive Shante's test on the right side. Motor strength of the lower extremities is 5/5. There is no gross sensory deficit. Assessment:: Degenerative disc disease of lumbar spine with lumbar radiculopathy symptoms. Sacroiliitis. Plan:: We will seek approval for a right SI joint injection as I believe this is a source of a lot of her pain. We will also increase her gabapentin to 100 mg in the morning and 200 mg at night. We will give her a new prescription for gabapentin.
== END ==
PROVIDERS: Family Provider Internal Medicine Adolescent Medicine; PCP Internal Medicine Adolescent Medicine; Visit Provider Anesthesiology
DX: M46.1 Sacroiliitis, not elsewhere classified (principal); M54.16 Radiculopathy, lumbar region
CPT/HCPCS: 99212

== ENCOUNTER → 2017-12-01 08:18 | Outpatient (CLI) | payer MEDICARE, OTHER, SELFPAY ==
--- NOTE | 2017-12-01 08:25 | MR_ITS ---
MR cervical spine wo con, MR 3-d myelogram/MRCP HISTORY: Neck pain and stiffness, right arm pain and numbness in right hand ITS.REASON: CERVICAL NEURALGIA Neck pain, stiffness, Rt Arm Pain, numbness in rt hand X1 YR. ORDERING PHYSICIAN: Marc Rodriguez MD PATIENT AGE: 62 years TECHNIQUE: Standard multiplanar multiecho sequences are performed without contrast. 3-D MIP and myelographic images are also rendered and reviewed LIMITATIONS: Decreased bysuqu-xh-ecrdm ratio secondary to mild motion artifact on the axial images FINDINGS: There is normal alignment. The craniocervical junction has an unremarkable appearance. C2-C3 and C3-C4 have an unremarkable appearance. C4-C5: Mild degenerative disc disease. Small anterior osteophyte. C5-C6: Mild degenerative disc disease. C6-C7: Degenerative disc disease with bulging disc. There is mild posterior element hypertrophic change with resultant narrowing of the canal at approximately 9 mm with minimal contour deformity along the anterior aspect of the cord. C7-T1: Unremarkable. IMPRESSION: 1. Mild cervical spondylosis with mild degenerative disc disease from C4 to C7. 2. Degenerative disc disease with bulging disc at C6-C7 with canal narrowing of 9 mm
== END ==
PROVIDERS: Family Provider Internal Medicine Adolescent Medicine; PCP Internal Medicine Adolescent Medicine; Visit Provider Internal Medicine Adolescent Medicine
DX: M54.12 Radiculopathy, cervical region (principal)
CPT/HCPCS: 72141; 76376

== ENCOUNTER → 2018-01-05 09:52 | Outpatient (POV) | payer MEDICARE, OTHER, SELFPAY ==
[2018-01-05 10:05] VITALS: BP 133/66; PULSE 74; RESP 18; O2SAT 98; BMI 42.0
--- NOTE | 2018-01-05 10:57 | HMH.PMPROC ---
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 Patient is following up after right abdomen injection. She is doing better. Patient is still having a lot of nerve pain in both her legs. Patient states that her compounding cream to help some. Patient is currently under the care of Dr. Dawkins for potential cervical surgery. Patient and I discussed neuro stimulation if she is not a surgical candidate. I believe that she would benefit from a Nuvectra system and get cervical and lumbar coverage. Today we will change her intrathecal pain pump to periodic flow. I believe that this may be beneficial for some pain relief. Patient rates her pain a 7 out of 10 today. She denies side effects or intrathecal medications. Patient is currently being managed on a Dilaudid, bupivacaine, Prialt pump. Procedure Details:: Informed consent was obtained and the risk and benefits of the procedure were explained to the patient. The patient was taken to the procedure room where noninvasive monitoring was placed including noninvasive blood pressure cuff and pulse oximeter. Patient's pump was interrogated. The infusion rate was changed to 0.55 mg every 2 hours. For a daily dose of 7.1 mg a day of Dilaudid, 5.6 mg a day of bupivacaine and 5.1 mcg a day of prialt. The patient tolerated the procedure well. Plan and Disposition:: I will follow-up with this patient and her next intrathecal pain pump refill. Patient has been instructed to call the office if she needs anything prior to her visit. This note was dictated using voice recognition software and may contain errors or omissions
== END ==
PROVIDERS: Family Provider Internal Medicine Adolescent Medicine; PCP Internal Medicine Adolescent Medicine; Visit Provider Clinical Nurse Specialist Family Health
DX: M54.16 Radiculopathy, lumbar region (principal)
CPT/HCPCS: 99212

== ENCOUNTER → 2018-01-18 13:51 | Outpatient (POV) | payer MEDICARE, OTHER, SELFPAY ==
--- NOTE | 2018-01-19 11:10 | PC.NURSE ---
REFILL FOR GABAPENTIN 100MG CAP TID CALLED INTO [facility] [place] WITH 2 REFILLS
== END ==
PROVIDERS: Family Provider Internal Medicine Adolescent Medicine; PCP Internal Medicine Adolescent Medicine; Visit Provider Specialist
DX: R20.2 Paresthesia of skin (principal)
CPT/HCPCS: 95886; 95908

== ENCOUNTER 2018-01-19 12:15 | Day surgery (SDC) | payer MEDICARE, OTHER, SELFPAY ==
[2018-01-19 12:33] VITALS: BP 120/61; PULSE 72; RESP 18; O2SAT 96; BMI 36.0
--- NOTE | 2018-01-19 13:03 | P.PCN_ITS ---
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 Patient is doing better. Patient was set to a periodic flow at last appointment. Patient states she did notice a lot of difference however she is doing somewhat. Patient is still having a lot of nerve pain in both of her legs. Patient states that her compounding cream does help some. Patient has been seen Dr. Dawkins for potential cervical surgery. We did discuss neuro stimulation. Patient has not seen Dr. Dawkins yet however she will follow-up with us after she sees him. Patient is currently on a Dilaudid/bupivacaine/Prialt pump. She denies any side effects to the medication. Patient rates her pain a 7 out of 10 today we will change her concentration the medication and increase her Prialt. We will also increase overall doses of medication. Physical Exam General: Alert and oriented x3, no acute distress, pleasant and cooperative, [ on room air] Lungs: Resps E/U, Symmetrical chest expansion, Eyes: PERRL Musculoskeletal: Flexion and extension of lumbar spine somewhat guarded secondary to pain, deep tendon reflexes normal, strength in upper and lower extremities [5/5], [abnormal gait noted] Neurological: speech clear, electronics maintenance technician equal, no gross sensory deficits Procedure Details:: Informed consent was obtained and the risk and benefits of the procedure were explained to the patient. The patient was taken to the procedure room where noninvasive monitoring was placed including noninvasive blood pressure cuff and pulse oximeter. Patient's pump was interrogated. The area over the pump was cleansed with chlorhexidine as a cleansing solution. In sterile fashion the pump was accessed with a 22-gauge needle. Approximately 2 mL's were removed of the pump solution and discarded appropriately. The pump was then refilled with 20 mL's of Dilaudid 8 mg/mL/bupivacaine 9 mg/mL and Prialt 10 mcg/mL. The needle was withdrawn and a bandage was placed over the puncture site. The infusion rate was changed to a periodic flow with a basal rate of 0.06 mg/h and a bolus every 2 hours of 0.7 mg of Dilaudid, 0.78 mg of bupivacaine, 0.9 mcg of Prialt. Patient's total daily doses are 8.75 mg a day of Dilaudid, 9.8 mg a day of bupivacaine, 11.7 mcg a day of Prialt. The patient tolerated the procedure well. Plan and Disposition:: I will follow-up with this patient at her next intrathecal pain pump refill. I do believe that she may be a good candidate for neurostimulator in the future. Patient's been instructed to call the office if she has any issues prior to her next appointment. This note was dictated using voice recognition software and may contain errors or omissions
[2018-01-19 13:05] VITALS: BP 122/63; PULSE 67; RESP 18; O2SAT 96
[2018-01-19 13:12] VITALS: BP 126/62; PULSE 68; RESP 18; O2SAT 93
== END 2018-01-19 13:05 | disposition home or self-care (01) ==
LOC: SC.PAINP 12:16
PROVIDERS: Family Provider Internal Medicine Adolescent Medicine; PCP Internal Medicine Adolescent Medicine; Visit Provider Clinical Nurse Specialist Family Health
DX: M51.16 Intervertebral disc disorders with radiculopathy, lumbar region (principal); M96.1 Postlaminectomy syndrome, not elsewhere classified
CPT/HCPCS: 62370

== ENCOUNTER 2018-01-26 15:03 | Inpatient (IN) ==
--- NOTE | 2018-01-26 16:09 | Pharmacy Consult Notes ---
[facility] VTE Monitoring - Patient Demographics Admission date: 01/26/18 Report Date: 01/26/18 Time: 16:09 Allergies/Adverse Reactions: Patient Allergies cephalexin Allergy (Severe, Verified 10/12/17 07:27) BLISTERS IN MOUTH AND THROAT clindamycin Allergy (Severe, Verified 10/12/17 07:27) S-FOUHLQ-AKIS/THROAT erythromycin base Allergy (Severe, Verified 10/12/17 07:27) BLISTERS IN MOUTH AND THROAT codeine Allergy (Unknown, Verified 10/12/17 07:27) pregabalin [From Lyrica] Adverse Reaction (Mild, Verified 10/12/17 07:27) NA-HALLUCINATIONS Height: 1.7 m Weight: 104.581 kg - VTE Risk Was VTE Risk Assessment Performed: Yes VTE Score: 3 VTE Risk Level: Low Risk Clinical Trial Participant: No - Prophylaxis VTE Prophylaxis Ordered?: Yes Types of VTE Prophylaxis: TEDS Knee High
[2018-01-26 16:22] LABS: Basophils % 0.1 % (0.1-2.0); Eosinophils # 0.1 K/mm3 (0.0-0.4); Eosinophils % 0.8 % (0.1-12.0); Hematocrit 34.2 % (37.0-47.0); Hemoglobin 10.7 g/dL (12.2-16.2); Lymphocytes # 0.6 K/mm3 (0.7-4.5); Lymphocytes % 6.8 K/mm3 (10-50); Mean Corpuscular HGB Conc 31.3 g/dL (31.8-35.4); Mean Corpuscular Hemoglobin 30.3 pg (27.0-31.2); Mean Corpuscular Volume 96.6 fl (81-99); Monocytes # 0.7 K/mm3 (0.1-1.0); Monocytes % 7.7 % (1.7-9.3); Neutrophils # 7.5 K/mm3 (1.8-7.8); Neutrophils % 84.5 % (37.0-80.0); Platelet Count 171 K/mm3 (142-424); Red Blood Count 3.55 M/mm3 (4.20-5.40); White Blood Count 8.8 K/mm3 (4.8-10.8)
[2018-01-26 16:36] LABS: Albumin Level 2.9 gm/dL (3.4-5.0); Albumin/Globulin Ratio 0.8 (1.1-1.8); Anion Gap 8.7 mEq/L (5-15); Bilirubin,Total 0.9 mg/dL (0.2-1.0); Calcium 9.5 mg/dL (8.5-10.1); Globulin 3.7 gm/dl (1.3-3.2); Potassium 4.7 mmoL/L (3.5-5.1); Total Protein,Serum 6.6 gm/dL (6.4-8.2)
--- NOTE | 2018-01-26 17:31 | History & Physical Report ---
*Admission Date: 01/26/18 *Chief complaint: cough, shortness of breath *History of present illness: 62 year old female with multiple chronic medical conditions including asthma presents to PCP office with a 4 day history of cough and shortness of breath. She became weak and dizzy today. No fevers. No ENT symptoms. In the office, she was found to be tachypneic at 28 with oxygen saturations 81% on RA. She staggered from the lobby to the exam room. Patient was placed on oxygen at 3L/ NC and saturations improved to 90%. Patient was direct admitted to acute care for IV antibiotics and further evaluation. [facility] History I have reviewed the patient's past medical history: Yes Medical History: Reports:: Coronary Artery Disease, Hyperlipidemia, Hypertension Denies:: Cancer, Diabetes Mellitus Type 1, Diabetes Mellitus Type 2, MRSA, Seizures Other Medical History: Reports: Anemia, Arthritis, Cataracts, Fibromyalgia, Glaucoma, Hypothyroidism, Thyroid Disease. Denies: Blood Transfusion Reaction Laterality Cases: Bilateral: Arthroscopy Knee Other Surgeries: Yes: Appendectomy, Cholecystectomy, Colon Resection, Hysterectomy-Partial, Ureter Stent, Other (colon surgery,right foot) Amputation: No Fractures: Yes - *Social History Educational Level: Completed High School Smoking Status: Never smoker Alcohol Intake: never Occupational Status: unemployed, disabled Housing: house Household Members: spouse - Psychiatric History Expresses thoughts of harming self/others: None Suicide Plan Description: No Plan *Family Hx:: No significant family history Review of Systems - Review of Systems Review of systems:: pertinent systems reviewed and negative unless documented below - Constitutional Reports body ache(s), Reports malaise, Reports weakness - *Respiratory Reports cough, Reports shortness of breath Meds Home Medications Medication Instructions Recorded Confirmed Type Alendronate Sodium 70 mg PO WEEKLY 10/09/17 01/26/18 History Cholecalciferol (Vitamin D3) 50,000 unit PO DIRECTED 10/09/17 01/26/18 History [Vitamin D3 50,000 unit Cap] Donepezil HCl [Aricept 10mg tablet] 10 mg PO HS 10/09/17 01/26/18 History Eszopiclone [Lunesta] 3 mg PO HS 10/09/17 01/26/18 History Levothyroxine Sodium 100 mcg PO DAILY 10/09/17 01/26/18 History [Levothyroxine 88mcg (0.088mg) Tab] Lisinopril [Lisinopril 2.5mg Tab] 2.5 mg PO HS 10/09/17 01/26/18 History Lutein 20 mg PO DAILY 10/09/17 01/26/18 History Quetiapine Fumarate [Seroquel] 200 mg PO HS 10/09/17 01/26/18 History Rosuvastatin Calcium [Crestor] 40 mg PO HS 10/09/17 01/26/18 History Sodium Bicarbonate [Sodium 650 mg PO BID 10/09/17 01/26/18 History Bicarbonate 650mg Tablet] Venlafaxine HCl [Effexor Xr] 75 mg PO DAILY 10/09/17 01/26/18 History cycloSPORINE [Restasis] 1 each OP DAILY 10/09/17 01/26/18 History lamoTRIgine [Lamictal] 100 mg PO BID 10/09/17 01/26/18 History Albuterol Sulfate [Albuterol HFA 2 puffs PO Q6HP PRN 10/19/17 01/26/18 History Inhaler] Gabapentin [Gabapentin 100mg Cap] 100 mg PO BID 12/18/17 01/26/18 History Memantine HCl 5 mg PO DAILY 12/18/17 01/26/18 History Montelukast Sodium [Montelukast 10 mg PO HS 12/18/17 01/26/18 History 10mg Tab] Duloxetine HCl [Cymbalta 30mg 60 mg PO DAILY 01/26/18 01/26/18 History capsule] Hydrocortisone 10 mg PO BID 01/26/18 01/26/18 History Omeprazole [Omeprazole 40mg 40 mg PO DAILY 01/26/18 01/26/18 History Capsule] Allergies Allergy/AdvReac Type Severity Reaction Status Date / Time cephalexin Allergy Severe BLISTERS Verified 10/12/17 07:27 IN MOUTH AND THROAT clindamycin Allergy Severe S-SWELLS-OR Verified 10/12/17 07:27 AL/THROAT erythromycin base Allergy Severe BLISTERS Verified 10/12/17 07:27 IN MOUTH AND THROAT codeine Allergy Unknown Verified 10/12/17 07:27 pregabalin [From Lyrica] AdvReac Mild NA-HALLUCIN Verified 10/12/17 07:27 ATIONS Exam Vital signs and Labs for Last 24 Hours: Temp Pulse Resp BP Pulse Ox 97.4 F L 94 H 22 114/65 91 L 01/26/18 15:55 01/26/18 15:55 01/26/18 15:55 01/26/18 15:55 01/26/18 15:55 Laboratory Results - last 24 hr 01/26/18 16:12: WBC 8.8, RBC 3.55 L, Hgb 10.7 L, Hct 34.2 L, MCV 96.6, MCH 30.3 , MCHC 31.3 L, RDW 14.0, Plt Count 171, MPV 8.0, Neut % (Auto) 84.5 H, Lymph % ( Auto) 6.8 L, Scurry % (Auto) 7.7, Eos % (Auto) 0.8, Baso % (Auto) 0.1, Neut # ( Auto) 7.5, Lymph # (Auto) 0.6 L, Scurry # (Auto) 0.7, Eos # (Auto) 0.1, Baso # ( Auto) 0.0 01/26/18 16:12: Sodium 139, Potassium 4.7, Chloride 105, Carbon Dioxide 30, Anion Gap 8.7, BUN 15, Creatinine 1.32 H, Estimated Creat Clear 71, Estimated GFR 41 L, Est GFR ( Amer) 49 L, Glucose 117 H, Calcium 9.5, Total Bilirubin 0.9, AST 43 H, ALT 30, Alkaline Phosphatase 100, Total Protein 6.6, Albumin 2.9 L, Globulin 3.7 H, Albumin/Globulin Ratio 0.8 L I & O for Last 24 hours: Intake & Output 01/24/18 01/25/18 01/26/18 01/27/18 11:59 11:59 11:59 11:59 Intake Total 360 / 360 Balance 360 / 360 Weight 230 lb 9 oz Narrative: Alert and oriented x3. Rate and rhythm regular. Trace LE edema. Lung sounds with scattered wheezes and loose rhonchi throughout. Abdomen soft and nontender. Normoactive bowel sounds. ENT exam unremarkable. Skin pale, warm and dry. Neuro exam unremarkable H&P: Result - Labs Labs: Short CBC 01/26/18 Range/Units 16:12 WBC 8.8 (4.8-10.8) K/mm3 Hgb 10.7 L (12.2-16.2) g/dL Hct 34.2 L (37.0-47.0) % Plt Count 171 (142-424) K/mm3 BMP 01/26/18 16:12 Sodium 139 Potassium 4.7 Chloride 105 Carbon Dioxide 30 BUN 15 Creatinine 1.32 H Glucose 117 H Calcium 9.5 Liver Function 01/26/18 Range/Units 16:12 Total Bilirubin 0.9 (0.2-1.0) mg/dL AST 43 H (15-37) U/L ALT 30 (12-78) U/L Alkaline Phosphatase 100 (46-116) U/L Albumin 2.9 L (3.4-5.0) gm/dL Assessment and Plan (1) Hypoxia Current visit: Yes Status: Acute Category: Medical Code(s): R09.02 - Hypoxemia (2) Asthma exacerbation Current visit: Yes Status: Acute Category: Medical Code(s): J45.901 - Unspecified asthma with (acute) exacerbation (3) Pneumonia Current visit: Yes Status: Acute Category: Medical Code(s): J18.9 - Pneumonia, unspecified organism - Assessment and plan all Dx Assessment and Plan for all problems:: Will initiate CAP protocol with Levaquin pending blood and sputum cultures. Duonebs and solu-medrol. CXR pending.
[2018-01-26 20:25] LABS: Coronavirus 229E Not Detected (NotDetected); Coronavirus NL63 Not Detected (NotDetected); Coronavirus OC43 Not Detected (NotDetected); Coronovirus HKU1,PCR Not Detected (NotDetected)
[2018-01-27 06:39] LABS: Hematocrit 33.2 % (37.0-47.0); Hemoglobin 10.3 g/dL (12.2-16.2); Lymphocytes # 0.4 K/mm3 (0.7-4.5); Lymphocytes % 5.5 K/mm3 (10-50); Mean Corpuscular HGB Conc 31.1 g/dL (31.8-35.4); Mean Corpuscular Hemoglobin 30.3 pg (27.0-31.2); Mean Corpuscular Volume 97.5 fl (81-99); Monocytes # 0.2 K/mm3 (0.1-1.0); Monocytes % 2.3 % (1.7-9.3); Neutrophils # 7.1 K/mm3 (1.8-7.8); Neutrophils % 92.2 % (37.0-80.0); Platelet Count 162 K/mm3 (142-424); Red Cell Distribution Width 13.8 % (11.5-17.5); White Blood Count 7.8 K/mm3 (4.8-10.8)
[2018-01-27 07:24] LABS: Albumin Level 2.6 gm/dL (3.4-5.0); Albumin/Globulin Ratio 0.7 (1.1-1.8); Anion Gap 8.5 mEq/L (5-15); Bilirubin,Total 0.6 mg/dL (0.2-1.0); Calcium 9.2 mg/dL (8.5-10.1); Globulin 3.9 gm/dl (1.3-3.2); Potassium 4.5 mmoL/L (3.5-5.1); Total Protein,Serum 6.5 gm/dL (6.4-8.2)
--- NOTE | 2018-01-27 08:05 | Progress Note ---
Internal Medicine - PN: Subj *Date: 01/27/18 *Time: 08:03 Interval history: Patient feels somewhat better. Wearing oxygen, comfortably breathing. Exam Vital signs and Labs for Last 24 Hours: Temp Pulse Resp BP Pulse Ox 97.8 F 76 16 107/52 92 L 01/27/18 07:36 01/27/18 07:36 01/27/18 07:36 01/27/18 07:36 01/27/18 07:36 Laboratory Results - last 24 hr 01/26/18 16:12: WBC 8.8, RBC 3.55 L, Hgb 10.7 L, Hct 34.2 L, MCV 96.6, MCH 30.3 , MCHC 31.3 L, RDW 14.0, Plt Count 171, MPV 8.0, Neut % (Auto) 84.5 H, Lymph % ( Auto) 6.8 L, [place] % (Auto) 7.7, Eos % (Auto) 0.8, Baso % (Auto) 0.1, Neut # ( Auto) 7.5, Lymph # (Auto) 0.6 L, [place] # (Auto) 0.7, Eos # (Auto) 0.1, Baso # ( Auto) 0.0 01/26/18 16:12: Sodium 139, Potassium 4.7, Chloride 105, Carbon Dioxide 30, Anion Gap 8.7, BUN 15, Creatinine 1.32 H, Estimated Creat Clear 71, Estimated GFR 41 L, Est GFR ( Amer) 49 L, Glucose 117 H, Calcium 9.5, Total Bilirubin 0.9, AST 43 H, ALT 30, Alkaline Phosphatase 100, Total Protein 6.6, Albumin 2.9 L, Globulin 3.7 H, Albumin/Globulin Ratio 0.8 L 01/26/18 16:12: Mycoplasma pneumon IgM Non-reactive 01/26/18 20:20: Chlamy pneumoniae PCR Not detected, Adenovirus (PCR) Not detected, B.parapertussis DNA PCR Not detected, Coronavirus OC43 (PCR) Not detected, Coronavirus HKU1 (PCR) Not detected, Coronavirus 229E (PCR) Not detected, Coronavirus NL63 (PCR) Not detected, Human Metapneumovir PCR Not detected, Influenza A (H1) PCR Not detected, Influ A (H1N1/09) PCR Not detected , Influenza A (H3) PCR Not detected, Influenza Type A (PCR) Not detected, Influenza Type B (PCR) Not detected, M. pneumoniae (PCR) Not detected, Parainfluenza 1 (PCR) Not detected, Parainfluenza 2 (PCR) Not detected, Parainfluenza 3 (PCR) Not detected, Parainfluenza 4 (PCR) Not detected, RSV (PCR ) Not detected, Entero/Rhino (PCR) Not detected 01/26/18 23:24: Lactic Acid 1.0 01/27/18 06:00: WBC 7.8, RBC 3.40 L, Hgb 10.3 L, Hct 33.2 L, MCV 97.5, MCH 30.3 , MCHC 31.1 L, RDW 13.8, Plt Count 162, MPV 8.0, Neut % (Auto) 92.2 H, Lymph % ( Auto) 5.5 L, [place] % (Auto) 2.3, Eos % (Auto) 0.0 L, Baso % (Auto) 0.0 L, Neut # (Auto) 7.1, Lymph # (Auto) 0.4 L, [place] # (Auto) 0.2, Eos # (Auto) 0.0, Baso # ( Auto) 0.0 01/27/18 06:00: Sodium 140, Potassium 4.5, Chloride 108 H, Carbon Dioxide 28, Anion Gap 8.5, BUN 15, Creatinine 1.17 H, Estimated Creat Clear 80, Estimated GFR 47 L, Est GFR ( Amer) 56 L, Glucose 162 H D, Calcium 9.2, Total Bilirubin 0.6, AST 37, ALT 30, Alkaline Phosphatase 100, Total Protein 6.5, Albumin 2.6 L D, Globulin 3.9 H, Albumin/Globulin Ratio 0.7 L I & O for Last 24 hours: Intake & Output 01/24/18 01/25/18 01/26/18 01/27/18 11:59 11:59 11:59 11:59 Intake Total 360 / 360 Output Total 1100 / 1100 Balance -740 / -740 Weight 230 lb 9 oz Narrative: Bilateral crackles, worse on the left base. Heart rate regular. Patient is pleasant and alert, no rash. Amaya soft. Assessment and Plan (1) Hypoxia Current visit: Yes Status: Acute Category: Medical Code(s): R09.02 - Hypoxemia (2) Asthma exacerbation Current visit: Yes Status: Acute Category: Medical Code(s): J45.901 - Unspecified asthma with (acute) exacerbation (3) Pneumonia Current visit: Yes Status: Acute Category: Medical Code(s): J18.9 - Pneumonia, unspecified organism - Assessment and plan all Dx Assessment and Plan for all problems:: Slight improvement. Mucomyst for sputum production help. Await blood cultures.
[2018-01-27 11:39] LABS: Lymphocytes % 5 % (10-50); Monocytes % 4 % (2-9); Neutrophils % 91 % (42-76); Total Cells Counted 100
[2018-01-27 11:40] LABS: RBC Morphology Normal
[2018-01-28 06:08] LABS: Hematocrit 31.3 % (37.0-47.0); Hemoglobin 9.9 g/dL (12.2-16.2); Lymphocytes # 0.3 K/mm3 (0.7-4.5); Lymphocytes % 3.6 K/mm3 (10-50); Mean Corpuscular HGB Conc 31.6 g/dL (31.8-35.4); Mean Corpuscular Hemoglobin 30.9 pg (27.0-31.2); Mean Corpuscular Volume 97.8 fl (81-99); Mean Platelet Volume 8.2 fl (7.4-10.4); Monocytes # 0.3 K/mm3 (0.1-1.0); Monocytes % 3.4 % (1.7-9.3); Neutrophils # 8.5 K/mm3 (1.8-7.8); Platelet Count 183 K/mm3 (142-424); Red Cell Distribution Width 13.9 % (11.5-17.5); White Blood Count 9.2 K/mm3 (4.8-10.8)
[2018-01-28 06:20] LABS: Albumin Level 2.5 gm/dL (3.4-5.0); Albumin/Globulin Ratio 0.7 (1.1-1.8); Anion Gap 12.7 mEq/L (5-15); Bilirubin,Total 0.3 mg/dL (0.2-1.0); Calcium 9.1 mg/dL (8.5-10.1); Globulin 3.7 gm/dl (1.3-3.2); Potassium 4.7 mmoL/L (3.5-5.1); Total Protein,Serum 6.2 gm/dL (6.4-8.2)
[2018-01-28 07:49] LABS: Lymphocytes % 4 % (10-50); Monocytes % 2 % (2-9); Neutrophils % 94 % (42-76); Total Cells Counted 100
--- NOTE | 2018-01-28 08:31 | Progress Note ---
Internal Medicine - PN: Subj *Date: 01/28/18 *Time: 07:27 Interval history: Patient states "I feel a little bit better." Remains unable to produce sputum for culture, even with addition of mucomyst. ALert and oriented x3. Rate and rhythm regular. Trace LE edema. Lung sound with crackles bilateral bases and RML, scattered wheezes, airflow improved. Abdomen soft and nontender. Exam Vital signs and Labs for Last 24 Hours: Temp Pulse Resp BP Pulse Ox 97.0 F L 85 20 121/63 3 L 01/28/18 07:57 01/28/18 07:57 01/28/18 07:57 01/28/18 07:57 01/28/18 08:00 Laboratory Results - last 24 hr 01/27/18 06:00: Total Counted 100, Neutrophils % (Manual) 91 H, Lymphocytes % ( Manual) 5 L, Monocytes % (Manual) 4, Platelet Estimate Slight decrease, RBC Morphology Normal 01/28/18 05:45: WBC 9.2, RBC 3.20 L, Hgb 9.9 L, Hct 31.3 L, MCV 97.8, MCH 30.9, MCHC 31.6 L, RDW 13.9, Plt Count 183, MPV 8.2, Neut % (Auto) 93.0 H, Lymph % ( Auto) 3.6 L, [place] % (Auto) 3.4, Eos % (Auto) 0.0 L, Baso % (Auto) 0.0 L, Neut # (Auto) 8.5 H, Lymph # (Auto) 0.3 L, [place] # (Auto) 0.3, Eos # (Auto) 0.0, Baso # (Auto) 0.0, Total Counted 100, Neutrophils % (Manual) 94 H, Lymphocytes % ( Manual) 4 L, Monocytes % (Manual) 2, Platelet Estimate Normal 01/28/18 05:45: Sodium 146 H, Potassium 4.7, Chloride 111 H, Carbon Dioxide 27, Anion Gap 12.7, BUN 17, Creatinine 1.28 H, Estimated Creat Clear 73, Estimated GFR 42 L, Est GFR ( Amer) 51 L, Glucose 148 H, Calcium 9.1, Total Bilirubin 0.3, AST 33, ALT 29, Alkaline Phosphatase 91, Total Protein 6.2 L, Albumin 2.5 L, Globulin 3.7 H, Albumin/Globulin Ratio 0.7 L I & O for Last 24 hours: Intake & Output 01/25/18 01/26/18 01/27/18 01/28/18 11:59 11:59 11:59 11:59 Intake Total 510 / 510 681 / 681 Output Total 1100 / 1100 1650 / 1650 Balance -590 / -590 -969 / -969 Weight 230 lb 9 oz Assessment and Plan (1) Hypoxia Current visit: Yes Status: Acute Category: Medical Code(s): R09.02 - Hypoxemia (2) Asthma exacerbation Current visit: Yes Status: Acute Category: Medical Code(s): J45.901 - Unspecified asthma with (acute) exacerbation (3) Pneumonia Current visit: Yes Status: Acute Category: Medical Code(s): J18.9 - Pneumonia, unspecified organism - Assessment and plan all Dx Assessment and Plan for all problems:: Some improvement. Encourage patient to get OOB and ambulate in the nash. RT to induce sputum for culture.
--- NOTE | 2018-01-29 07:36 | Progress Note ---
Internal Medicine - PN: Subj *Date: 01/29/18 *Time: 07:35 Interval history: Patient continues to have coughing but without sputum production. Continues to be weak, is very worried about falling. Exam Vital signs and Labs for Last 24 Hours: Temp Pulse Resp BP Pulse Ox 98.2 F 65 16 147/73 93 L 01/29/18 04:00 01/29/18 06:29 01/29/18 04:00 01/29/18 04:00 01/29/18 06:29 Laboratory Results - last 24 hr 01/28/18 05:45: Total Counted 100, Neutrophils % (Manual) 94 H, Lymphocytes % ( Manual) 4 L, Monocytes % (Manual) 2, Platelet Estimate Normal I & O for Last 24 hours: Intake & Output 01/26/18 01/27/18 01/28/18 01/29/18 11:59 11:59 11:59 11:59 Intake Total 510 / 510 1191 / 1191 2440 / 2440 Output Total 1100 / 1100 1650 / 1650 2775 / 2775 Balance -590 / -590 -459 / -459 -335 / -335 Weight 230 lb 9 oz Microbiology Reports for the Last 24 Hours: Microbiology 01/26/18 16:12 Blood Blood Culture - Preliminary NO GROWTH AFTER 48 HOURS 01/26/18 16:12 Blood Blood Culture - Preliminary NO GROWTH AFTER 48 HOURS Narrative: Alert, pleasant. Nervous and tearful her feeling badly. Lungs have rhonchi in both lower lung sarmiento. Heart rate regular. Abdomen soft. Wearing oxygen. saturations noted. Assessment and Plan (1) Hypoxia Current visit: Yes Status: Acute Category: Medical Code(s): R09.02 - Hypoxemia (2) Asthma exacerbation Current visit: Yes Status: Acute Category: Medical Code(s): J45.901 - Unspecified asthma with (acute) exacerbation (3) Pneumonia Current visit: Yes Status: Acute Category: Medical Code(s): J18.9 - Pneumonia, unspecified organism - Assessment and plan all Dx Assessment and Plan for all problems:: Difficult medical comorbidities and instability. PT/OT evaluate and. Consider swing bed for PT and ongoing antibiotics.
--- NOTE | 2018-01-29 07:46 | Progress Note ---
Internal Medicine - PN: Subj *Date: 01/29/18 *Time: 07:45 Exam Vital signs and Labs for Last 24 Hours: Temp Pulse Resp BP Pulse Ox 98.2 F 65 16 147/73 93 L 01/29/18 04:00 01/29/18 06:29 01/29/18 04:00 01/29/18 04:00 01/29/18 06:29 Laboratory Results - last 24 hr 01/28/18 05:45: Total Counted 100, Neutrophils % (Manual) 94 H, Lymphocytes % ( Manual) 4 L, Monocytes % (Manual) 2, Platelet Estimate Normal I & O for Last 24 hours: Intake & Output 01/26/18 01/27/18 01/28/18 01/29/18 23:59 23:59 23:59 23:59 Intake Total 510 / 510 150 / 150 2468 / 2468 1013 / 1013 Output Total 500 / 500 1400 / 1400 2250 / 2250 1375 / 1375 Balance 10 / 10 -1250 / -1250 218 / 218 -362 / -362 Weight 104.581 kg Microbiology Reports for the Last 24 Hours: Microbiology 01/26/18 16:12 Blood Blood Culture - Preliminary NO GROWTH AFTER 48 HOURS 01/26/18 16:12 Blood Blood Culture - Preliminary NO GROWTH AFTER 48 HOURS Assessment and Plan (1) Hypoxia Current visit: Yes Status: Acute Category: Medical Code(s): R09.02 - Hypoxemia (2) Asthma exacerbation Current visit: Yes Status: Acute Category: Medical Code(s): J45.901 - Unspecified asthma with (acute) exacerbation (3) Pneumonia Current visit: Yes Status: Acute Category: Medical Code(s): J18.9 - Pneumonia, unspecified organism The patient's infection will respond to the chosen ABx?: Yes Is the patient receiving the right drug, dose, and route?: Yes Could a more targeted ABx be ordered?: No (PATIENT UNABLE TO PRODUCE SPUTUM OF THIS DOCUMENTATION)
--- NOTE | 2018-01-30 08:32 | Swing Bed Reports ---
*Admission Date: 01/26/18 *Chief complaint: Bilateral pneumonia, weakness *History of present illness: 62 year old female with multiple chronic medical conditions including asthma presents to PCP office with a 4 day history of cough and shortness of breath. She became weak and dizzy today. No fevers. No ENT symptoms. In the office, she was found to be tachypneic at 28 with oxygen saturations 81% on RA. She staggered from the lobby to the exam room. Patient was placed on oxygen at 3L/ NC and saturations improved to 90%. Patient was direct admitted to acute care for IV antibiotics and further evaluation. Hospital Course Hospital Course: Patient was admitted to hospital, begun on intravenous levofloxacin. Tolerated this well and defervesced. Continue to have an oxygen requirement, unable to produce a sputum sample in spite of Mucomyst nebulizer treatments and respiratory therapy induction measures. She improved from a pneumonia standpoint but continue to require low-flow oxygen. She was found to have weakness, physical therapy evaluated her and felt that she would be a good candidate to continue skilled rehabilitation for the next week to 10 days. She will be transferred to the swing bed today for ongoing IV antibiotics, physical and occupational therapy and oxygen therapy. Exam Vital signs and Labs for Last 24 Hours: Temp Pulse Resp BP Pulse Ox 98.4 F 88 20 143/68 90 L 01/30/18 07:44 01/30/18 07:44 01/30/18 07:44 01/30/18 07:44 01/30/18 07:44 I & O for Last 24 hours: Intake & Output 01/27/18 01/28/18 01/29/18 01/30/18 11:59 11:59 11:59 11:59 Intake Total 510 / 510 1191 / 1191 2590 / 2590 420 / 420 Output Total 1100 / 1100 1650 / 1650 2775 / 2775 600 / 600 Balance -590 / -590 -459 / -459 -185 / -185 -180 / -180 Weight 230 lb 9 oz Narrative: Patient is pleasant, awake. Alert, oriented 3. Heart rate regular. Abdomen soft, oropharynx clear. She has bilateral lower lobe rhonchi but fairly good air entry. She has no edema. She is wearing compression stockings. Has weakness and neuropathy in her legs as previously noted but somewhat exacerbated this hospital stay. Results Labs on day of discharge: Preliminary micro results at discharge 01/26/18 16:12 Blood Culture - Preliminary Blood NO GROWTH AFTER 48 HOURS 01/26/18 16:12 Blood Culture - Preliminary Blood NO GROWTH AFTER 48 HOURS DS: Diagnosis - Discharge Diagnosis (1) Hypoxia Status: Acute (2) Asthma exacerbation Status: Acute (3) Pneumonia Status: Acute (4) Physical deconditioning Status: Acute Discharge Medications Discharge Medications: Home Medications Medication Instructions Recorded Confirmed Type Alendronate Sodium 70 mg PO WEEKLY 10/09/17 01/26/18 History Cholecalciferol (Vitamin D3) 50,000 unit PO DIRECTED 10/09/17 01/26/18 History [Vitamin D3 50,000 unit Cap] Donepezil HCl [Aricept 10mg tablet] 10 mg PO HS 10/09/17 01/27/18 History Eszopiclone [Lunesta] 3 mg PO HS 10/09/17 01/26/18 History Levothyroxine Sodium 100 mcg PO DAILY 10/09/17 01/27/18 History [Levothyroxine 88mcg (0.088mg) Tab] Lutein 20 mg PO DAILY 10/09/17 01/26/18 History Quetiapine Fumarate [Seroquel] 200 mg PO HS 10/09/17 01/26/18 History Rosuvastatin Calcium [Crestor] 40 mg PO HS 10/09/17 01/26/18 History Sodium Bicarbonate [Sodium 650 mg PO BID 10/09/17 01/26/18 History Bicarbonate 650mg Tablet] Venlafaxine HCl [Effexor Xr] 75 mg PO DAILY 10/09/17 01/27/18 History cycloSPORINE [Restasis] 1 each OP DAILY 10/09/17 01/26/18 History lamoTRIgine [Lamictal] 100 mg PO BID 10/09/17 01/26/18 History Albuterol Sulfate [Albuterol HFA 2 puffs PO Q6HP PRN 10/19/17 01/26/18 History Inhaler] Gabapentin [Gabapentin 100mg Cap] 100 mg PO BID 12/18/17 01/29/18 History Memantine HCl 5 mg PO DAILY 12/18/17 01/27/18 History Montelukast Sodium [Montelukast 10 mg PO HS 12/18/17 01/27/18 History 10mg Tab] Duloxetine HCl [Cymbalta 30mg 60 mg PO DAILY 01/26/18 01/27/18 History capsule] Hydrocortisone 10 mg PO BID 01/26/18 01/27/18 History Omeprazole [Omeprazole 40mg 40 mg PO DAILY 01/26/18 01/27/18 History Capsule] Lisinopril [Lisinopril 5mg Tablet] 5 mg PO DAILY 01/27/18 01/27/18 History Disposition Disposition: [facility] Bed
== END 2018-01-30 09:50 | disposition swing bed (61) ==
LOC: 2ND 15:03
PROVIDERS: ADMIT Internal Medicine Adolescent Medicine; ATTEND Internal Medicine Adolescent Medicine
CPT/HCPCS: 36415; 71020; 71046; 80053; 83605; 85007; 85025; 86738; 87040; 87486; 87581; 87633; 87798; 94640; 94761; 97163; 97166; 97530; J1956

== ENCOUNTER 2018-01-30 09:51 | Inpatient (IN) ==
--- NOTE | 2018-01-30 13:35 | Pharmacy Consult Notes ---
[facility] Pharmacy VTE Monitoring - Patient Demographics Admission date: 01/30/18 Report Date: 01/30/18 Time: 13:35 Allergies/Adverse Reactions: Patient Allergies cephalexin Allergy (Severe, Verified 10/12/17 07:27) BLISTERS IN MOUTH AND THROAT clindamycin Allergy (Severe, Verified 10/12/17 07:27) P-[id number]/THROAT erythromycin base Allergy (Severe, Verified 10/12/17 07:27) BLISTERS IN MOUTH AND THROAT codeine Allergy (Unknown, Verified 10/12/17 07:27) pregabalin [From Lyrica] Adverse Reaction (Mild, Verified 10/12/17 07:27) NA-HALLUCINATIONS Height: 1.7 m Weight: 108.55 kg - VTE Risk Was VTE Risk Assessment Performed: Yes VTE Score: 6 VTE Risk Level: Moderate Risk - Prophylaxis VTE Prophylaxis Ordered?: Yes Types of VTE Prophylaxis: TEDS Knee High Location of Applied Device: Bilateral Lower Extremeties
--- NOTE | 2018-02-01 07:48 | Progress Note ---
Internal Medicine - PN: Subj *Date: 02/01/18 *Time: 07:47 Interval history: Patient did well over the weekend, had one physical therapy session yesterday. Did well with this. Is a little nervous. Exam Vital signs and Labs for Last 24 Hours: Temp Pulse Resp BP Pulse Ox 97.5 F L 76 22 154/70 89 L 01/31/18 20:00 02/01/18 06:03 01/31/18 20:00 01/31/18 20:00 02/01/18 06:03 Laboratory Results - last 24 hr 01/31/18 20:27: POC Glucose 113 H I & O for Last 24 hours: Intake & Output 01/29/18 01/30/18 01/31/18 02/01/18 11:59 11:59 11:59 11:59 Intake Total 360 / 360 4233 / 4233 Output Total 550 / 550 2900 / 2900 500 / 500 Balance -190 / -190 1333 / 1333 -500 / -500 Weight 239 lb 5 oz 240 lb 3 oz Narrative: Patient is pleasant, talkative. Lungs have rhonchi in both bases but good air movement. Heart rate regular. Abdomen soft. Assessment and Plan (1) Physical deconditioning Current visit: No Status: Acute Category: Medical Code(s): R53.81 - Other malaise (2) Pneumonia Current visit: No Status: Acute Category: Medical Code(s): J18.9 - Pneumonia, unspecified organism - Assessment and plan all Dx Assessment and Plan for all problems:: Continue swing bed. Continue IV steroids for her adrenal insufficiency issues. IV antibiotics. PT continues.
--- NOTE | 2018-02-02 09:36 | Progress Note ---
Internal Medicine - PN: Subj *Date: 02/02/18 *Time: 09:36 Exam Vital signs and Labs for Last 24 Hours: Temp Pulse Resp BP Pulse Ox 98.9 F 88 18 131/64 94 L 02/02/18 07:51 02/02/18 07:51 02/02/18 07:51 02/02/18 07:51 02/02/18 07:51 I & O for Last 24 hours: Intake & Output 01/30/18 01/31/18 02/01/18 02/02/18 23:59 23:59 23:59 23:59 Intake Total 3525 / 3525 1218 / 1218 1440 / 1440 860 / 860 Output Total 2350 / 2350 1100 / 1100 2500 / 2500 2200 / 2200 Balance 1175 / 1175 118 / 118 -1060 / -1060 -1340 / -1340 Weight 108.55 kg 108.947 kg 108.947 kg Assessment and Plan (1) Physical deconditioning Current visit: No Status: Acute Category: Medical Code(s): R53.81 - Other malaise (2) Pneumonia Current visit: No Status: Acute Category: Medical Code(s): J18.9 - Pneumonia, unspecified organism The patient's infection will respond to the chosen ABx?: Yes Is the patient receiving the right drug, dose, and route?: Yes Could a more targeted ABx be ordered?: No (SWINGBED PATIENT)
--- NOTE | 2018-02-04 08:11 | Progress Note ---
Internal Medicine - PN: Subj *Date: 02/04/18 *Time: 08:09 Interval history: Patient has done well with antibiotic therapy and her oxygen requirement is improving. Unfortunately, she has not progressed well with physical therapy and continues to be significantly ataxic with some forward falling habits when she walks. She is very concerned about going home and relied on her for care. Exam Vital signs and Labs for Last 24 Hours: Temp Pulse Resp BP Pulse Ox 98.7 F 97 H 20 185/83 91 L 02/04/18 07:44 02/04/18 07:44 02/04/18 07:44 02/04/18 07:44 02/04/18 07:44 I & O for Last 24 hours: Intake & Output 02/01/18 02/02/18 02/03/18 02/04/18 11:59 11:59 11:59 11:59 Intake Total 870 / 870 1730 / 1730 900 / 900 1060 / 1060 Output Total 900 / 900 3800 / 3800 2500 / 2500 2700 / 2700 Balance -30 / -30 -2070 / -2070 -1600 / -1600 -1640 / -1640 Weight 240 lb 2.992 oz Narrative: Lungs are improving. Minimal rhonchi, heart rate regular. Abdomen soft. No edema. Assessment and Plan (1) Physical deconditioning Current visit: No Status: Acute Category: Medical Code(s): R53.81 - Other malaise (2) Pneumonia Current visit: No Status: Acute Category: Medical Code(s): J18.9 - Pneumonia, unspecified organism - Assessment and plan all Dx Assessment and Plan for all problems:: Overall improving from a pneumonia standpoint. Not improving from a physical therapy/balance issue. Discussed with patient and her possibility of [facility] to [facility] for multidisciplinary neurology/neurosurgery/ physical medicine and rehabilitation specialty assessment.
[2018-02-04 08:42] LABS: Basophils % 0.2 % (0.1-2.0); Eosinophils % 0.1 % (0.1-12.0); Hematocrit 38.8 % (37.0-47.0); Lymphocytes # 0.3 K/mm3 (0.7-4.5); Lymphocytes % 2.7 K/mm3 (10-50); Mean Corpuscular HGB Conc 30.9 g/dL (31.8-35.4); Mean Corpuscular Hemoglobin 30.3 pg (27.0-31.2); Mean Platelet Volume 7.6 fl (7.4-10.4); Monocytes # 0.4 K/mm3 (0.1-1.0); Monocytes % 3.5 % (1.7-9.3); Neutrophils # 11.6 K/mm3 (1.8-7.8); Neutrophils % 93.4 % (37.0-80.0); Platelet Count 193 K/mm3 (142-424); Red Blood Count 3.96 M/mm3 (4.20-5.40); Red Cell Distribution Width 14.2 % (11.5-17.5); White Blood Count 12.4 K/mm3 (4.8-10.8)
[2018-02-04 08:55] LABS: Albumin Level 2.9 gm/dL (3.4-5.0); Albumin/Globulin Ratio 0.9 (1.1-1.8); Anion Gap 7.4 mEq/L (5-15); Bilirubin,Total 0.3 mg/dL (0.2-1.0); Calcium 8.7 mg/dL (8.5-10.1); Globulin 3.1 gm/dl (1.3-3.2); Potassium 3.4 mmoL/L (3.5-5.1)
[2018-02-04 11:05] LABS: Lymphocytes % 7 % (10-50); Monocytes % 1 % (2-9); Neutrophils % 91 % (42-76); Total Cells Counted 100
[2018-02-04 11:07] LABS: RBC Morphology Normal
--- NOTE | 2018-02-05 07:54 | Discharge Summary ---
General - General Admission date:: 01/30/18 Discharge date: 02/05/18 HPI HPI: 62-year-old white female with multiple medical problems including chronic neuropathy, chronic ataxia issues, chronic pain syndrome and multiple medication sensitivities who came to the emergency department with cough and congestion, found to have bilateral pulmonary infiltrates and hypoxia. Admitted to hospital for viral lower lobe pneumonia. Acute care course was uncomplicated. She was started on intravenous levofloxacin. She was unable to get a sputum culture produced in spite of Mucomyst and saline infusions and nebs. However, she responded nicely to Levaquin therapy, blood cultures were negative, and her oxygen requirement declined. She was very weak however, and her balance problems that were pre-existing were exacerbated by her medical illness. Physical therapy evaluated her and felt that she would be a reasonable candidate for swing bed to work on strengthening and balance issues and she was transferred to swing bed on January 30. Hospital Course Hospital Course: Swing bed course was smooth, she was able to be changed to p.o. levofloxacin. Oxygen requirements continued decline. Lung examinations improved. Unfortunately, she did not improve very much with physical therapy and occupational therapy, continue to have major balance problems with problems with ataxia and a sensation/physical problem with falling forward when she walked. Physical therapy was very concerned about her being discharged in the care of her as well as he and the patient. We discussed the case with her and investigated and ultimately decided to transfer the patient to the [facility] for longer term rehabilitation, evaluation by physical medication and clinical rehabilitation aide and evaluation by neurology given her ongoing issues with neuropathy , multiple medication 70s and chronic ataxia issues. She will be transferred there today. Objective Vital signs: Temp Pulse Resp BP Pulse Ox 98.0 F 93 H 20 146/81 93 L 02/04/18 20:00 02/05/18 06:03 02/04/18 20:00 02/04/18 20:00 02/05/18 06:03 Narrative: Patient is alert, pleasant. Has bibasilar rhonchi but much improved over admission exam. Heart rate regular. Abdomen soft. She is weak in her lower extremities and is tearful and anxious about her ongoing medical problems but is oriented and positive emotionally about transferring to rehabilitation facility. Results Labs on day of discharge: Labs from last 24 hours 02/04/18 02/04/18 08:26 08:26 WBC 12.4 H RBC 3.96 L Hgb 12.0 L Hct 38.8 MCV 98.0 MCH 30.3 MCHC 30.9 L RDW 14.2 Plt Count 193 MPV 7.6 Neut % (Auto) 93.4 H Lymph % (Auto) 2.7 L [place] % (Auto) 3.5 Eos % (Auto) 0.1 Baso % (Auto) 0.2 Neut # (Auto) 11.6 H Lymph # (Auto) 0.3 L [place] # (Auto) 0.4 Eos # (Auto) 0.0 Baso # (Auto) 0.0 Total Counted 100 Neutrophils % (Manual) 91 H Band Neutrophils % 1.0 Lymphocytes % (Manual) 7 L Monocytes % (Manual) 1 L Platelet Estimate Normal RBC Morphology Normal Sodium 144 Potassium 3.4 L Chloride 109 H Carbon Dioxide 31 Anion Gap 7.4 BUN 16 Creatinine 1.24 H Estimated Creat Clear 79 Estimated GFR 44 L Est GFR ( Amer) 53 L Glucose 148 H Calcium 8.7 Total Bilirubin 0.3 AST 30 ALT 45 Alkaline Phosphatase 80 Total Protein 6.0 L Albumin 2.9 L Globulin 3.1 Albumin/Globulin Ratio 0.9 L DS: Diagnosis - Discharge Diagnosis (1) Physical deconditioning Status: Acute (2) Pneumonia Status: Acute Discharge Plan - Patient Discharge Instructions ACTIVITY: Limited activity, Up with assistance DIET: continue same diet - Follow up Plan Unknown provider or service follow up:: Dr. Shah at [facility] Disposition: Xfer Inpatient Rehab Fac Home Medications: Home Medications Medication Instructions Recorded Confirmed Type Alendronate Sodium 70 mg PO WEEKLY 10/09/17 01/30/18 History Cholecalciferol (Vitamin D3) 50,000 unit PO DIRECTED 10/09/17 01/30/18 History [Vitamin D3 50,000 unit Cap] Donepezil HCl [Aricept 10mg tablet] 10 mg PO HS 10/09/17 01/30/18 History Eszopiclone [Lunesta] 3 mg PO HS 10/09/17 01/30/18 History Levothyroxine Sodium 100 mcg PO DAILY 10/09/17 01/30/18 History [Levothyroxine 88mcg (0.088mg) Tab] Lutein 20 mg PO DAILY 10/09/17 01/30/18 History Quetiapine Fumarate [Seroquel] 200 mg PO HS 10/09/17 01/30/18 History Rosuvastatin Calcium [Crestor] 40 mg PO HS 10/09/17 01/30/18 History Sodium Bicarbonate [Sodium 650 mg PO BID 10/09/17 01/30/18 History Bicarbonate 650mg Tablet] Venlafaxine HCl [Effexor Xr] 75 mg PO DAILY 10/09/17 01/30/18 History cycloSPORINE [Restasis] 1 each OP DAILY 10/09/17 01/30/18 History lamoTRIgine [Lamictal] 100 mg PO BID 10/09/17 01/30/18 History Albuterol Sulfate [Albuterol HFA 2 puffs PO Q6HP PRN 10/19/17 01/30/18 History Inhaler] Gabapentin [Gabapentin 100mg Cap] 100 mg PO BID 12/18/17 01/30/18 History Memantine HCl 5 mg PO DAILY 12/18/17 01/30/18 History Montelukast Sodium [Montelukast 10 mg PO HS 12/18/17 01/30/18 History 10mg Tab] Duloxetine HCl [Cymbalta 30mg 60 mg PO DAILY 01/26/18 01/30/18 History capsule] Hydrocortisone 10 mg PO BID 01/26/18 01/30/18 History Omeprazole [Omeprazole 40mg 40 mg PO DAILY 01/26/18 01/30/18 History Capsule] Lisinopril [Lisinopril 5mg Tablet] 5 mg PO DAILY 01/27/18 01/30/18 History Prescriptions/Medication Reconciliation: Continue Donepezil HCl [Aricept 10mg tablet] 10 mg PO HS Levothyroxine Sodium [Levothyroxine 88mcg (0.088mg) Tab] 100 mcg PO DAILY Venlafaxine HCl [Effexor Xr] 75 mg PO DAILY Sodium Bicarbonate [Sodium Bicarbonate 650mg Tablet] 650 mg PO BID Quetiapine Fumarate [Seroquel] 200 mg PO HS Lutein 20 mg PO DAILY lamoTRIgine [Lamictal] 100 mg PO BID Eszopiclone [Lunesta] 3 mg PO HS cycloSPORINE [Restasis] 1 each OP DAILY Cholecalciferol (Vitamin D3) [Vitamin D3 50,000 unit Cap] 50,000 unit PO DIRECTED Alendronate Sodium 70 mg PO WEEKLY Memantine HCl 5 mg PO DAILY Montelukast Sodium [Montelukast 10mg Tab] 10 mg PO HS Gabapentin [Gabapentin 100mg Cap] 100 mg PO BID Duloxetine HCl [Cymbalta 30mg capsule] 60 mg PO DAILY Rosuvastatin Calcium [Crestor] 40 mg PO HS Albuterol Sulfate [Albuterol HFA Inhaler] 2 puffs PO Q6HP PRN PRN Reason: BREATHING Omeprazole [Omeprazole 40mg Capsule] 40 mg PO DAILY Hydrocortisone 10 mg PO BID Lisinopril [Lisinopril 5mg Tablet] 5 mg PO DAILY
[2018-02-05 08:20] VITALS: BP 123/67
== END 2018-02-05 10:31 ==
LOC: 2ND 09:51
PROVIDERS: ADMIT Internal Medicine Adolescent Medicine; ATTEND Internal Medicine Adolescent Medicine
CPT/HCPCS: 36415; 80053; 82962; 85007; 85025; 86580; 94640; 94761; 97116; 97530; 98960; J1956

== ENCOUNTER → 2018-02-20 10:38 | Outpatient (CLI) | payer MEDICARE, OTHER, SELFPAY ==
--- NOTE | 2018-02-20 10:44 | XR_ITS ---
XR chest 2V HISTORY: PneumoniaBilaterally to 3 weeks ITS.REASON: HX OF PNUMONIA ORDERING PHYSICIAN: Marc Rodriguez MD PATIENT AGE: 62 years Technique: PA and lateral chest COMPARISON: 01/26/2018 CXR FINDINGS:. When compared to the sixth 2617 study there is been marked interval improvement. There is been resolution of the bilateral infiltrates in the interval with only some minimal linear scarring and density persisting at the right upper lobe. No underlying mass or pathology evident on these plain films views. Borderline cardiomegaly again noted. Denice and mediastinal structures appear satisfactory Of this chest is rotated somewhat the left slightly distorted Multiple old left rib healed rib fractures are noted with the slight leftward rotation to the. Mild elevation right hemidiaphragm. No pleural effusion. T-spine appears stable and intact. It appears chest is return to baseline appearance 10/27/2017 with only some subtle additional density at the posterior right upper lobe on lateral view A would suggesting suggest a follow-up chest film and 4 months to confirm stability of this area of likely scarring on the lateral view where it is somewhat more focal character posteriorly RUL, where it is projected over the T-spine. IMPRESSION------ Marked improvement when compared to previous chest film 01/26/2018. The bilateral infiltrates have for the most part fully resolved. Only note minimal linear residual scarring & scant residual fairly linear density at R UL.. -Most likely due to scarring Follow-up CXR 4 months suggested to confirm this is merely scarring/atelectasis on the lateral film as well
== END ==
PROVIDERS: PCP Internal Medicine Adolescent Medicine; Visit Provider Internal Medicine Adolescent Medicine
DX: Z87.01 Personal history of pneumonia (recurrent) (principal)
CPT/HCPCS: 71046

== ENCOUNTER → 2018-03-26 09:28 | Outpatient (POV) | payer MEDICARE, OTHER, SELFPAY ==
[2018-03-26 09:41] VITALS: BP 138/70; PULSE 83; RESP 20; O2SAT 93; BMI 33.2
--- NOTE | 2018-03-26 12:04 | HMH.PMPROC ---
- Procedure Date: 03/26/18 Time: 12:05 Anesthesiologist:: Sagar Kidd MD Complications:: None Pre-procedure Diagnosis:: Degenerative disc disease of lumbar spine with lumbar radiculopathy symptoms and postlaminectomy syndrome and lumbar spine Post-procedure Diagnosis:: Same Indications for Procedure:: This patient is a pleasant 62-year-old white female who we are treating for low back pain with lumbar radiculopathy symptoms. She was recently at [facility] for physical therapy. While she was at [facility] her intrathecal pain pump ran dry. She came in for refill on 02/23/2018. Her pump had been dry for over a week. She was refilled and restarted at the same dose as she was going through withdrawals. At that same time she became septic and had pneumonia. She was admitted to [facility]. She was overmedicated because of her sepsis and current intrathecal infusion. She was decreased to 2 mg per day of intrathecal Dilaudid/bupivacaine/ziconotide. She has now been discharged. She is back to her normal self. She is walking better and more functional. She does have some increased pain with a significant decrease. We will increase her slightly today to see if this helps with her pain symptoms. She does have a antalgic gait. And needs some assistance with walking. Motor strength of the lower extremities is 5/5. There is no gross sensory deficit. Procedure Details:: Procedure: Increase of intrathecal Dilaudid/bupivacaine/ziconotide pain pump infusion Informed consent was obtained and the risk and benefits of the procedure was explained to the patient. The patient was taken to the procedure room. Intrathecal pump was interrogated. Intrathecal Dilaudid/bupivacaine/ziconotide infusion was increased to 2.4 mg per day. Patient tolerated the procedure well with no complications. Low reservoir alarm date is 04/12/2018. The patient is scheduled for refill on 04/06/2018. We will increase her concentration at that time to extend her day to 42 days. This is a maximum refill interval for combination therapy with ziconotide. Plan and Disposition:: We will follow-up with her at her next refill on 04/06/2018. If she has any problems or questions she is to call us in the pain clinic.
--- NOTE | 2018-03-26 12:08 | P.PCN_ITS ---
- Procedure Date: 03/26/18 Time: 12:05 Anesthesiologist:: aSgar Kidd MD Complications:: None Pre-procedure Diagnosis:: Degenerative disc disease of lumbar spine with lumbar radiculopathy symptoms and postlaminectomy syndrome and lumbar spine Post-procedure Diagnosis:: Same Indications for Procedure:: This patient is a pleasant 62-year-old white female who we are treating for low back pain with lumbar radiculopathy symptoms. She was recently at [facility] for physical therapy. While she was at [facility] her intrathecal pain pump ran dry. She came in for refill on 02/23/2018. Her pump had been dry for over a week. She was refilled and restarted at the same dose as she was going through withdrawals. At that same time she became septic and had pneumonia. She was admitted to [facility]. She was overmedicated because of her sepsis and current intrathecal infusion. She was decreased to 2 mg per day of intrathecal Dilaudid/bupivacaine/ziconotide. She has now been discharged. She is back to her normal self. She is walking better and more functional. She does have some increased pain with a significant decrease. We will increase her slightly today to see if this helps with her pain symptoms. She does have a antalgic gait. And needs some assistance with walking. Motor strength of the lower extremities is 5/5. There is no gross sensory deficit. Procedure Details:: Procedure: Increase of intrathecal Dilaudid/bupivacaine/ziconotide pain pump infusion Informed consent was obtained and the risk and benefits of the procedure was explained to the patient. The patient was taken to the procedure room. Intrathecal pump was interrogated. Intrathecal Dilaudid/bupivacaine/ziconotide infusion was increased to 2.4 mg per day. Patient tolerated the procedure well with no complications. Low reservoir alarm date is 04/12/2018. The patient is scheduled for refill on 04/06/2018. We will increase her concentration at that time to extend her day to 42 days. This is a maximum refill interval for combination therapy with ziconotide. Plan and Disposition:: We will follow-up with her at her next refill on 04/06/2018. If she has any problems or questions she is to call us in the pain clinic.
== END ==
PROVIDERS: PCP Internal Medicine Adolescent Medicine; Visit Provider Clinical Nurse Specialist Family Health
DX: M51.16 Intervertebral disc disorders with radiculopathy, lumbar region (principal); M96.1 Postlaminectomy syndrome, not elsewhere classified
CPT/HCPCS: 62370

== ENCOUNTER 2018-04-09 08:00 | Outpatient (RCR) | payer MEDICARE, OTHER, SELFPAY | END 2018-04-09 08:01 | disposition home or self-care (01) | LOC: PT 08:00 | PROVIDERS: Family Provider Internal Medicine Adolescent Medicine; PCP Internal Medicine Adolescent Medicine; Visit Provider Internal Medicine | DX: R27.0 Ataxia, unspecified (principal); M62.81 Muscle weakness (generalized) | CPT/HCPCS: 97110; 97112; 97116; 97163 ==

== ENCOUNTER → 2018-04-23 13:27 | Outpatient (CLI) | payer MEDICARE, OTHER, SELFPAY ==
--- NOTE | 2018-04-23 13:31 | CT_ITS ---
CT chest wo con with high resolution images HISTORY: ITS.REASON: CHRONIC COUGH ORDERING PHYSICIAN: Mat Epps MD PATIENT AGE: 62 years COMPARISON: 06/26/2017 Technique: Axial images obtained with sagittal and coronal reformats. All CT scans at the facility use one or more dose reduction, viz: automated exposure control, ma/kV adjustment per patient size (including targeted exams where dose is matched to indication, i.e. head), or iterative reconstruction technique. FINDINGS: No mediastinal or hilar mass or adenopathy. There are coronary artery calcifications. There is evidence of old granulomatous disease. There are scattered fibrotic changes right upper lobe, right middle lobe, lower lobe, and left lower lobe similar to the previous exam. No suspicious pulmonary nodules are evident. No effusions or infiltrates. High-resolution images demonstrate the scattered areas of areas of parenchymal scarring in both lungs. No evidence of diffuse interstitial lung disease. No pleural or diaphragmatic calcification. Upper abdominal images are unremarkable. There is mild wedging of T11 which is developed since the previous exam but does not appear acute with mild degenerative disc disease in the lower thoracic spine. IMPRESSION: 1. Scattered fibrotic changes which may be postinflammatory in nature but no evidence of diffuse interstitial fibrosis or diffuse interstitial lung disease 2. Old granulomatous disease. 3. Coronary artery calcification
--- NOTE | 2018-04-23 13:31 | CT_ITS ---
CT sinus wo con CLINICAL INDICATION: ITS.REASON: CHRONIC COUGH ORDERING PHYSICIAN: Mat Epps MD PATIENT AGE: 62 years COMPARISON: None TECHNIQUE:Axial images obtained with sagittal and coronal reformats. All CT scans at the facility use one or more dose reduction, viz: automated exposure control, ma/kV adjustment per patient size (including targeted exams where dose is matched to indication, i.e. head), or iterative reconstruction technique. FINDINGS: Bones: Unremarkable. No fracture, lytic, or blastic changes evident Extracranial soft tissues: Unremarkable Sinuses: Unremarkable. No air-fluid levels or significant mucosal thickening Orbits: Unremarkable Other: There are osteoarthritic changes of the temporomandibular joints IMPRESSION: Negative CT of the sinuses Bilateral TMJ osteoarthritis
== END ==
PROVIDERS: Family Provider Internal Medicine Adolescent Medicine; PCP Internal Medicine Adolescent Medicine; Visit Provider Internal Medicine Pulmonary Disease
DX: R05 Cough (principal)
CPT/HCPCS: 70486; 71250

== ENCOUNTER 2018-06-16 08:00 | Outpatient (RCR) | payer MEDICARE, OTHER, SELFPAY | END 2018-06-16 08:01 | disposition home or self-care (01) | LOC: OT 08:00 | PROVIDERS: Family Provider Internal Medicine Adolescent Medicine; PCP Internal Medicine Adolescent Medicine; Visit Provider Internal Medicine | DX: R27.0 Ataxia, unspecified (principal); M62.81 Muscle weakness (generalized) | CPT/HCPCS: 97014; 97035; 97110; 97112; 97164; 97166; G0283 ==

== ENCOUNTER → 2018-08-09 11:41 | Outpatient (CLI) | payer MEDICARE, BC, SELFPAY ==
--- NOTE | 2018-08-09 11:56 | XR_ITS ---
XR chest 2V HISTORY: ITS.REASON: COUGH,BRONCHITIS ORDERING PHYSICIAN: Maggi Crawford PATIENT AGE: 62 years COMPARISON: 02/24/2018 FINDINGS: The cardiomediastinal silhouette and pulmonary vascularity are within normal limits. Chronic changes are noted in the left lower lobe. No lobar consolidation or collapse. No acute bony anomalies. There are old left-sided rib fractures. IMPRESSION: No acute finding, chronic changes left lung base
== END ==
PROVIDERS: PCP Internal Medicine Adolescent Medicine; Visit Provider Nurse Practitioner Family
DX: R05 Cough (principal); J45.901 Unspecified asthma with (acute) exacerbation
CPT/HCPCS: 71046

== ENCOUNTER → 2018-09-24 07:38 | Outpatient (CLI) | payer MEDICARE, BC, SELFPAY ==
--- NOTE | 2018-09-24 08:00 | CT_ITS ---
CT abdomen pelvis wo con CLINICAL INDICATION: Bilateral flank pain with hematuria ITS.REASON: HEMATURIA, ACUTE FLANK PAIN ORDERING PHYSICIAN: Marc Rodriguez MD PATIENT AGE: 62 years COMPARISON: 10/12/2015, 02/24/2018 TECHNIQUE: Axial images obtained with sagittal and coronal reformats. All CT scans at the facility use one or more dose reduction, viz: automated exposure control, ma/kV adjustment per patient size (including targeted exams where dose is matched to indication, i.e. head), or iterative reconstruction technique. PROCEDURE: Oral Contrast: None IV Contrast: None . FINDINGS: There are minimal atelectatic changes in the left lung base. Postcholecystectomy changes. The liver, spleen, adrenal glands, and pancreas have an unremarkable unenhanced appearance. No renal or ureteral calculi. No hydronephrosis. Cortical scarring involves the left kidney. No intestinal obstruction or free air. Prior hemicolectomy Prior appendectomy and hysterectomy. There is mild stranding of the perirectal presacral fat with some calcification in these areas having a similar appearance on 10/12/2015 and may represent postinflammatory/postsurgical change. Urinary bladder decompressed without evidence of stone. There is mild wedging of T11 which has developed since 10/12/2015. There is an epidural catheter present with an infusion time in the right lower back area. There is a small right paracentral ventral abdominal wall diastases with anterior aspect of the urinary bladder extending into this region. IMPRESSION: 1. Overall no significant change with no acute finding. 2. No renal or ureteral calculi or hydronephrosis. 3. Other nonacute findings as described above 4. Mild wedging of T11 which has developed since the previous exam but does not appear acute
== END ==
PROVIDERS: PCP Internal Medicine Adolescent Medicine; Visit Provider Internal Medicine Adolescent Medicine
DX: R31.29 Other microscopic hematuria (principal); R10.9 Unspecified abdominal pain
CPT/HCPCS: 74176

== ENCOUNTER → 2018-11-29 13:37 | Outpatient (CLI) | payer MEDICARE, BC, SELFPAY ==
--- NOTE | 2018-11-29 13:40 | MR_ITS ---
MR thoracic spine wo con HISTORY: Mid to low back pain since early Sep. Bilateral leg and feet pain along with tingling and burning. No known injury. ITS.REASON: BACK PAIN, COMPRESSION FX ORDERING PHYSICIAN: Pebbles Alvarado APRN PATIENT AGE: 63 years Comparison: PT had CT abdomen that showed compression FX- 09/24/18. MRI 03/14/16 TECHNIQUE: Standard multiplanar multiecho sequences are performed without contrast. 3-D MIP and myelographic images are also rendered and reviewed FINDINGS: There is normal alignment. Small central disc protrusion is present at T6-T7 with narrowing of the canal at this region. This is imaged only in the sagittal plane. There is mild multilevel degenerative disc disease. T8-T9: Degenerative disc disease with a small central disc herniation slightly eccentric to the left abutting the anterior aspect of the cord as before. Epidural stimulator device once again noted along the posterior left aspect of the cord at the T12-L1 level. There is been interval development of mild wedge compression changes at T11. This however does not appear acute. No acute compression fracture is evident. No bony destructive process. IMPRESSION: 1. Mild multilevel degenerative changes of the thoracic spine with a small central disc protrusion/herniation at T8-T9 not significantly changed 2. Nonacute mild wedge compression changes at T11 which have developed since interval without retropulsion
== END ==
PROVIDERS: PCP Internal Medicine Adolescent Medicine; Visit Provider Clinical Nurse Specialist Family Health
DX: M54.6 Pain in thoracic spine (principal); M48.54XG Collapsed vertebra, not elsewhere classified, thoracic region, subsequent encounter for fracture with delayed healing
CPT/HCPCS: 72146

== ENCOUNTER → 2018-12-10 15:09 | Outpatient (POV) | payer MEDICARE, BC, SELFPAY ==
[2018-12-10 15:17] VITALS: BP 147/81; PULSE 74; RESP 20; O2SAT 97; BMI 39.1
--- NOTE | 2018-12-10 15:32 | HMH.PAINSOAP ---
[facility] Pain Management SOAP Note Subjective:: This patient is a pleasant 63-year-old white female who currently has an intrathecal Dilaudid pain pump. She is doing well with her pain pump. She recently had a right shoulder joint replacement. She is recovering from this. She has noticed some increasing back pain over the last 4 to 5 months. She does have a nonacute wedge compression fracture at the T11 vertebral body. This does not seem to be acute and is already in the healing process. I believe she would benefit from a thoracic epidural steroid injection. She still has some continued mid back pain. She is continuing to rehabilitate her shoulder. We will seek approval and plan on a thoracic epidural steroid injection under fluoroscopy. Objective:: Alert and oriented x3 no acute distress. Motor strength of the lower extremities is 5/5. There is no gross sensory deficit. Patient does have her right arm in a sling. She has tenderness over the mid back area. Assessment:: Degenerative disc disease of the thoracic spine with not acute compression fracture at T11. Degenerative disease of lumbar spine with lumbar radiculopathy symptoms. Plan:: We will seek approval and plan on a thoracic epidural steroid injection at T10-11 under fluoroscopy.
--- NOTE | 2018-12-10 15:35 | P.CONS_ITS ---
[facility] Pain Management SOAP Note Subjective:: This patient is a pleasant 63-year-old white female who currently has an intrathecal Dilaudid pain pump. She is doing well with her pain pump. She recently had a right shoulder joint replacement. She is recovering from this. She has noticed some increasing back pain over the last 4 to 5 months. She does have a nonacute wedge compression fracture at the T11 vertebral body. This does not seem to be acute and is already in the healing process. I believe she would benefit from a thoracic epidural steroid injection. She still has some continued mid back pain. She is continuing to rehabilitate her shoulder. We will seek approval and plan on a thoracic epidural steroid injection under fluor oscopy. Objective:: Alert and oriented x3 no acute distress. Motor strength of the lower extremities is 5/5. There is no gross sensory deficit. Patient does have her right arm in a sling. She has tenderness over the mid back area. Assessment:: Degenerative disc disease of the thoracic spine with not acute compression fracture at T11. Degenerative disease of lumbar spine with lumbar radiculopathy symptoms. Plan:: We will seek approval and plan on a thoracic epidural steroid injection at T10- 11 under fluoroscopy.
== END ==
PROVIDERS: PCP Internal Medicine Adolescent Medicine; Visit Provider Anesthesiology
DX: M48.54XA Collapsed vertebra, not elsewhere classified, thoracic region, initial encounter for fracture; M51.16 Intervertebral disc disorders with radiculopathy, lumbar region; M51.34 Other intervertebral disc degeneration, thoracic region
CPT/HCPCS: 99212

== ENCOUNTER → 2019-01-10 14:59 | Outpatient (POV) | payer MEDICARE, BC, SELFPAY ==
[2019-01-10 15:11] VITALS: BP 132/72; PULSE 85; RESP 18; O2SAT 98; BMI 39.1
--- NOTE | 2019-01-11 08:55 | HMH.PMPROC ---
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 Did not have much relief from the injection. Does have an intrathecal pain pump. Adjustments today to see if this is beneficial for the patient. Denies side effects to her medications. She rates her pain a 6 out of 10 today. Physical Exam General: Alert and oriented x3, no acute distress, pleasant and cooperative, [on room air] Lungs: Resps E/U, Symmetrical chest expansion, Eyes: PERRL Musculoskeletal: Flexion and extension of thoracic and lumbar spine somewhat guarded secondary to pain, deep tendon reflexes normal, strength in upper and lower extremities [5/5], [abnormal gait noted] Neurological: speech clear, real estate attorney equal, no gross sensory deficits Procedure Details:: Informed consent was obtained and the risk and benefits of the procedure were explained to the patient. The patient was taken to the procedure room where noninvasive monitoring was placed including noninvasive blood pressure cuff and pulse oximeter. Patient's pump was interrogated and reprogrammed. The infusion rate was increased to 4.4 mg/day Dilaudid. The patient tolerated the procedure well. Plan and Disposition:: See the patient back at her next intrathecal pain pump refill and reprogram. Patient has been instructed to call the office if she has any issues prior to her next appointment. Dr. Kidd has reviewed this note and agrees with this plan of care. This note was dictated using voice recognition software and may contain errors or omissions
== END ==
PROVIDERS: PCP Internal Medicine Adolescent Medicine; Visit Provider Clinical Nurse Specialist Family Health
DX: M51.16 Intervertebral disc disorders with radiculopathy, lumbar region (principal)
CPT/HCPCS: 62368

== ENCOUNTER 2019-01-14 09:00 | Outpatient (RCR) | payer MEDICARE, BC, SELFPAY | END 2019-01-14 09:05 | disposition hospice, home (50) | LOC: PT 09:00 | PROVIDERS: Visit Provider Nurse Practitioner Family | DX: R26.89 Other abnormalities of gait and mobility (principal); Z96.611 Presence of right artificial shoulder joint | CPT/HCPCS: 97110; 97163 ==

== ENCOUNTER → 2019-01-15 11:14 | Outpatient (CLI) | payer MEDICARE, BC, SELFPAY ==
--- NOTE | 2019-01-15 11:45 | XR_ITS ---
XR chest 2V HISTORY: ITS.REASON: COUGH, COPD EXACERBATION ORDERING PHYSICIAN: Nereyda Stein APRN PATIENT AGE: 63 years COMPARISON: 08/09/2018 FINDINGS: There is mild cardiomegaly without failure. There are chronic changes in the lower lobes. No lobar consolidation or collapse. There is some vague increased density in the left upper lobe laterally possibly related to pleural thickening. Chest CT may confirm. There is been an interval right shoulder arthroplasty. IMPRESSION: Cardiomegaly with chronic changes in the lung bases and possible pleural thickening in the left upper lobe laterally. No significant change with no acute finding.
== END ==
PROVIDERS: PCP Nurse Practitioner Family; Visit Provider Nurse Practitioner Family
DX: J44.1 Chronic obstructive pulmonary disease with (acute) exacerbation (principal); R05 Cough
CPT/HCPCS: 71046

== ENCOUNTER → 2019-01-19 10:50 | Observation (INO) ==
--- NOTE | 2019-01-18 18:12 | History & Physical Report ---
*Admission Date: 01/18/19 *Chief complaint: pneumonia failing outpatient therapy *History of present illness: Ms. Frank is a 63-year-old female with multiple chronic conditions including asthma, history of adrenal insufficiency, chronic steroid use, who presented to clinic for the third time over the past 2 weeks with cough and shortness of breath. Was initially started on doxycycline and then transition to azithromycin for pneumonia. She has finished her azithromycin course and still has prominent cough and shortness of breath. Now has developed fevers and worsening symptoms. Additionally complains of some sores in her mouth she has a history of thrush associated with antibiotics. On initial assessment in clinic patient found to be tachypneic, sweaty, harsh barky cough, and generally ill- appearing. Patient was direct admitted to acute care for IV antibiotics and further evaluation. [facility] History I have reviewed the patient's past medical history: Yes Medical History: Reports:: Coronary Artery Disease, Hyperlipidemia, Hypertension Denies:: Cancer, Diabetes Mellitus Type 1, Diabetes Mellitus Type 2, MRSA, Seizures *Have you ever received a pneumonia vaccine?: Yes *Have you received a flu vaccine this season?: Yes Other Medical History: Reports: Anemia, Arthritis, Cataracts, Fibromyalgia, Glaucoma (bilateral), Hypothyroidism, Sinus Problems, Thyroid Disease. Denies: Blood Transfusion Reaction Laterality Cases: Left: Carpal Tunnel Release, Bilateral: Arthroscopy Knee, Breast Biopsy, Lumpectomy Other Surgeries: Yes: Appendectomy, Cardiac Catheterization, Cholecystectomy, Colonoscopy, Colon Resection, EGD, Hysterectomy-Partial, Ureter Stent, Other (colon surgery,right foot) Amputation: No Fractures: Yes ((R) humerus, (L) wrist,) - *Social History Educational Level: Completed High School Smoking Status: Never smoker Tobacco Type: cigarettes Alcohol Intake: never *Occupational Status:: unemployed, disabled Housing: house Household Members: spouse *Travel in the last 8 weeks: None - Psychiatric History Expresses thoughts of harming self/others: None Suicide Plan Description: No Plan Family Hx:: Anemia, Cancer, Coronary Artery Disease, Diabetes, Heart Attack, Hyperlipidemia, Hypertension, Stroke, Thyroid Disorder Review of Systems - Review of Systems Review of systems:: pertinent systems reviewed and negative unless documented below Meds Home Medications Medication Instructions Recorded Confirmed Type Alendronate Sodium [Alendronate 70 mg PO WEEKLY 10/09/17 01/18/19 History 70mg Tablet] Cholecalciferol (Vitamin D3) 50,000 unit PO DIRECTED 10/09/17 01/18/19 History [Vitamin D3 50,000 unit Cap] Donepezil HCl [Aricept 10mg 10 mg PO HS 10/09/17 01/18/19 History tablet] Eszopiclone [Lunesta] 3 mg PO HS 10/09/17 01/18/19 History Levothyroxine Sodium 100 mcg PO DAILY 10/09/17 01/18/19 History [Levothyroxine 88mcg (0.088mg) Tab] Lutein 20 mg PO DAILY 10/09/17 01/18/19 History Quetiapine Fumarate [Seroquel] 300 mg PO HS 10/09/17 01/18/19 History Rosuvastatin Calcium [Crestor] 40 mg PO HS 10/09/17 11/16/18 History Sodium Bicarbonate [Sodium 650 mg PO BID 10/09/17 11/16/18 History Bicarbonate 650mg Tablet] cycloSPORINE [Restasis] 1 each OP DAILY 10/09/17 01/18/19 History lamoTRIgine [Lamictal] 100 mg PO BID 10/09/17 01/18/19 History Albuterol Sulfate [Albuterol HFA 2 puffs PO Q6HP PRN 10/19/17 01/18/19 History Inhaler] Gabapentin [Gabapentin 100mg Cap] 100 mg PO HS 12/18/17 01/18/19 History Memantine HCl [Memantine 5mg 10 mg PO BID 12/18/17 01/18/19 History Tablet] Montelukast Sodium [Montelukast 10 mg PO HS 12/18/17 01/18/19 History 10mg Tab] Duloxetine HCl [Cymbalta 30mg 60 mg PO DAILY 01/26/18 01/18/19 History capsule] Hydrocortisone 10 mg PO BID 01/26/18 01/18/19 History Omeprazole [Omeprazole 40mg 40 mg PO DAILY 01/26/18 01/18/19 History Capsule] Lisinopril [Lisinopril 5mg Tablet] 5 mg PO DAILY 01/27/18 01/18/19 History Duloxetine HCl [Cymbalta 30mg 30 mg PO QPMWM 02/23/18 01/18/19 History capsule] Fluticasone Furoate [Arnuity 100 mcg IH DAILY 01/18/19 01/18/19 History Ellipta] Fluticasone/Vilanterol [Breo 1 inh IH DAILY 01/18/19 01/18/19 History Ellipta 200-25 Mcg INH] Allergies Allergy/AdvReac Type Severity Reaction Status Date / Time cephalexin Allergy Severe BLISTERS Verified 11/16/18 13:05 IN MOUTH AND THROAT clindamycin Allergy Severe S-SWELLS-OR Verified 11/16/18 13:05 AL/THROAT erythromycin base Allergy Severe BLISTERS Verified 11/16/18 13:05 IN MOUTH AND THROAT codeine Allergy Unknown Verified 11/16/18 13:05 levofloxacin [From Levaquin] Allergy Hives Verified 11/16/18 13:05 meropenem Allergy Verified 11/16/18 13:05 pregabalin [From Lyrica] AdvReac Mild NA-HALLUCIN Verified 11/16/18 13:05 ATIONS Exam Vital signs and Labs for Last 24 Hours: Temp Pulse Resp BP Pulse Ox 98.5 F 82 20 120/81 94 L 01/18/19 17:01 01/18/19 17:01 01/18/19 17:01 01/18/19 17:01 01/18/19 17:01 I & O for Last 24 hours: Intake & Output 01/15/19 01/16/19 01/17/19 01/18/19 23:59 23:59 23:59 23:59 Weight 111.187 kg - Constitutional mild distress, morbidly obese Comments: Cushingoid appearance - *Routine HEENT Exam Head: Present: cushingoid faces Eye: Present: EOMI, PERRL ENT: Present: mucous membranes moist - *Routine Neck Exam Present: supple. Absent: lymphadenopathy - *Routine Respiratory Exam Present: rhonchi. Absent: wheezes - *Routine Cardiovascular Exam Present: RRR, Normal S1, Normal S2 - *Routine Abdominal Exam Present: soft, normoactive bowel sounds - *Routine Rectal Exam Patient deferred: visual exam - *Routine Exam Patient deferred: external exam - *Routine Extremities Exam Present: edema (trace BiLateral LE). Absent: cyanosis, clubbing - *Routine Skin Exam Present: intact. Absent: cyanosis, erythema - *Routine Neurological Exam Present: alert, oriented X3. Absent: altered mental status Assessment and Plan (1) CKD (chronic kidney disease) stage 3, GFR 30-59 ml/min Current visit: Yes Status: Chronic Category: Medical Code(s): N18.3 - Chronic kidney disease, stage 3 (moderate) monitor daily, at baseline level on admission (2) Adrenal disease Current visit: Yes Status: Chronic Category: Medical Code(s): E27.9 - Disorder of adrenal gland, unspecified complicates care - IV steroids while INpt - monitor for worsening signs of insufficiency (3) Left lower lobe pneumonia Current visit: No Status: Acute Qualifiers: Pneumonia type: due to unspecified organism Qualified Code(s): J18.1 - Lobar pneumonia, unspecified organism Category: Medical Code(s): J18.1 - Lobar pneumonia, unspecified organism failed outpatient therapy - Pt has complex allergies noted, though most reported reactions are not anaphylaxis. - has failed Azithromycin and Doxycycline - Inquired about allergy to Levaquin: Sores in mouth, like thrush. Pt denied any anaphylaxis, hives, respiratory distress; therefore chose this abx due to broad coverage fo rtypical pathogens and atypicals - considered PCP as potential pathogen, though CT does not have typical pattern, held on Bactrim pending formal CT read. - steroids as prescribed - Sputum culture/GS pending - DuoNebs q4 scheduled - aggressive Pulmonary toilet - Suspect component of Bronchitis/Airway hyper reactivity causing cough; initiate Tussinex o2 as needed for goal >92% awake, 88% asleep (4) Physical deconditioning Current visit: No Status: Acute Category: Medical Code(s): R53.81 - Other malaise (5) Class 2 obesity due to excess calories in adult Current visit: Yes Status: Acute Category: Medical Code(s): E66.09 - Other obesity due to excess calories complicates all aspects of care.
[2019-01-18 18:32] LABS: Basophils % 0.1 % (0.1-2.0); Eosinophils % 0.1 % (0.1-12.0); Hematocrit 36.6 % (37.0-47.0); Hemoglobin 11.9 g/dL (12.2-16.2); Lymphocytes # 0.7 K/mm3 (0.7-4.5); Lymphocytes % 7.2 % (10-50); Mean Corpuscular HGB Conc 32.6 g/dL (31.8-35.4); Mean Corpuscular Volume 92.9 fl (81-99); Mean Platelet Volume 8.2 fl (7.4-10.4); Monocytes # 0.5 K/mm3 (0.1-1.0); Neutrophils % 87.7 % (37.0-80.0); Platelet Count 168 K/mm3 (142-424); Red Blood Count 3.94 M/mm3 (4.20-5.40); Red Cell Distribution Width 13.7 % (11.5-17.5); White Blood Count 10.2 K/mm3 (4.8-10.8)
[2019-01-18 18:53] LABS: Anion Gap 11.2 mEq/L (5-15); Bilirubin,Total 0.5 mg/dL (0.2-1.0); Calcium 8.6 mg/dL (8.5-10.1); Globulin 2.9 gm/dl (1.3-3.2); Total Protein,Serum 5.9 gm/dL (6.4-8.2)
[2019-01-18 19:37] LABS: Lymphocytes % 5 % (10-50); Monocytes % 3 % (2-9); Neutrophils % 92 % (42-76); RBC Morphology Normal; Total Cells Counted 100
[2019-01-19 06:19] LABS: Basophils % 0.1 % (0.1-2.0); Hematocrit 35.8 % (37.0-47.0); Hemoglobin 11.4 g/dL (12.2-16.2); Lymphocytes # 0.5 K/mm3 (0.7-4.5); Lymphocytes % 6.3 % (10-50); Mean Corpuscular HGB Conc 31.9 g/dL (31.8-35.4); Mean Corpuscular Volume 93.4 fl (81-99); Monocytes # 0.4 K/mm3 (0.1-1.0); Monocytes % 5.4 % (1.7-9.3); Neutrophils # 6.9 K/mm3 (1.8-7.8); Neutrophils % 88.2 % (37.0-80.0); Platelet Count 149 K/mm3 (142-424); Red Blood Count 3.83 M/mm3 (4.20-5.40); Red Cell Distribution Width 13.7 % (11.5-17.5); White Blood Count 7.8 K/mm3 (4.8-10.8)
[2019-01-19 06:37] LABS: Albumin/Globulin Ratio 1.1 (1.1-1.8); Bilirubin,Total 0.4 mg/dL (0.2-1.0); Calcium 8.5 mg/dL (8.5-10.1); Globulin 2.8 gm/dl (1.3-3.2); Total Protein,Serum 5.8 gm/dL (6.4-8.2)
--- NOTE | 2019-01-19 08:20 | Pharmacy Consult Notes ---
[facility] Pharmacy VTE Monitoring - Patient Demographics Admission date: 01/18/19 Report Date: 01/19/19 Time: 08:20 Allergies/Adverse Reactions: Patient Allergies cephalexin Allergy (Intermediate, Verified 01/19/19 08:04) BLISTERS IN MOUTH AND THROAT clindamycin Allergy (Intermediate, Verified 01/19/19 08:04) Blister erythromycin base Allergy (Intermediate, Verified 01/19/19 08:04) BLISTERS IN MOUTH AND THROAT levofloxacin [From Levaquin] Allergy (Intermediate, Verified 01/19/19 08:04) blisters meropenem Allergy (Unknown, Verified 01/19/19 08:04) pregabalin [From Lyrica] Adverse Reaction (Mild, Verified 01/19/19 08:04) Hallucinating codeine Adverse Reaction (Unknown, Verified 01/19/19 08:04) Height: 1.7 m Weight: 110.79 kg Patient Problems: Current Active Problems (Updated 01/18/19 @ 23:36 by Doug Husain MD) CKD (chronic kidney disease) stage 3, GFR 30-59 ml/min (Chronic) Adrenal disease (Chronic) Class 2 obesity due to excess calories in adult (Acute) - VTE Risk Labs: VTE Related Lab Results Hgb 11.4 g/dL (12.2-16.2) L 01/19/19 05:50 Hct 35.8 % (37.0-47.0) L 01/19/19 05:50 Plt Count 149 K/mm3 (142-424) 01/19/19 05:50 BUN 20 mg/dL (7-18) H D 01/19/19 05:50 Creatinine 1.21 mg/dL (0.55-1.02) H D 01/19/19 05:50 Estimated Creat Clear 81 mL/min (50-200) 01/19/19 05:50 Was VTE Risk Assessment Performed: Yes VTE Score: 4 VTE Risk Level: Low Risk Clinical Trial Participant: No - Prophylaxis VTE Prophylaxis Ordered?: Yes Types of VTE Prophylaxis: TEDS Knee High
--- NOTE | 2019-01-19 08:56 | Discharge Summary ---
General - General Admission date:: 01/18/19 Discharge date: 01/19/19 HPI HPI: Ms. Frank is a 63-year-old female with multiple chronic conditions including asthma, history of adrenal insufficiency, chronic steroid use, who presented to clinic for the third time over the past 2 weeks with cough and shortness of breath. Was initially started on doxycycline and then transition to azithromycin for pneumonia. She has finished her azithromycin course and still has prominent cough and shortness of breath. Now has developed fevers and worsening symptoms. Additionally complains of some sores in her mouth she has a history of thrush associated with antibiotics. On initial assessment in clinic patient found to be tachypneic, sweaty, harsh barky cough, and generally ill- appearing. Patient was direct admitted to acute care for IV antibiotics and further evaluation. Hospital Course Hospital Course: Patient was admitted, CT scanning of lungs were accomplished which revealed essentially no evidence of pathology. Chest x-ray likewise was also very clear. Labs were nondiagnostic. It was determined that patient had significant irritant bronchitis and she was started on methylprednisolone and levofloxacin. Of note she has a reported allergy to levofloxacin but this is "mouth lesions" and it was determined to be more of a side effect and allergy and patient tolerated levofloxacin overnight well. She was given a slightly higher dose of promethazine with codeine syrup which helped her cough somewhat. This morning she was at her baseline except for a significant cough, she will be discharged home with cough medicine, antibiotics and steroids as noted. Of note she has an appointment with her graphic manager in [place] tomorrow. We will get her copies of her CT scans and x-rays so that pulmonary can also see these images. Objective Vital signs: Temp Pulse Resp BP Pulse Ox 98.2 F 82 19 119/68 97 01/19/19 07:45 01/19/19 07:45 01/19/19 07:45 01/19/19 07:45 01/19/19 07:45 Narrative: Patient is pleasant, alert, oriented x3. Exam is interrupted frequently by a barky somewhat rhonchorous cough but it is nonproductive. Her lung sarmiento are clear in between her coughing spells. Heart rate regular. Abdomen obese but soft, no edema or clubbing. She has scattered bruising on her forearms consistent with her current antiplatelet therapy. Neurologic exam is intact. Results Labs on day of discharge: Labs from last 24 hours 01/19/19 01/19/19 01/19/19 06:18 05:50 05:50 WBC 7.8 RBC 3.83 L Hgb 11.4 L Hct 35.8 L MCV 93.4 MCH 29.8 MCHC 31.9 RDW 13.7 Plt Count 149 MPV 8.0 Neut % (Auto) 88.2 H Lymph % (Auto) 6.3 L Lyman % (Auto) 5.4 Eos % (Auto) 0.0 L Baso % (Auto) 0.1 Neut # (Auto) 6.9 Lymph # (Auto) 0.5 L Lyman # (Auto) 0.4 Eos # (Auto) 0.0 Baso # (Auto) 0.0 Total Counted Neutrophils % (Manual) Lymphocytes % (Manual) Monocytes % (Manual) Platelet Estimate RBC Morphology Sodium 142 Potassium 4.0 Chloride 109 H Carbon Dioxide 26 Anion Gap 11.0 BUN 20 H D Creatinine 1.21 H D Estimated Creat Clear 81 Estimated GFR 45 L Est GFR ( Amer) 54 L D Glucose 115 H POC Glucose 110 Calcium 8.5 Magnesium Total Bilirubin 0.4 AST 20 ALT 39 Alkaline Phosphatase 96 Total Protein 5.8 L Albumin 3.0 L Globulin 2.8 Albumin/Globulin Ratio 1.1 01/18/19 01/18/19 01/18/19 21:44 18:26 18:26 WBC 10.2 RBC 3.94 L Hgb 11.9 L Hct 36.6 L MCV 92.9 MCH 30.3 MCHC 32.6 RDW 13.7 Plt Count 168 MPV 8.2 Neut % (Auto) 87.7 H Lymph % (Auto) 7.2 L Lyman % (Auto) 5.0 Eos % (Auto) 0.1 Baso % (Auto) 0.1 Neut # (Auto) 9.0 H Lymph # (Auto) 0.7 Lyman # (Auto) 0.5 Eos # (Auto) 0.0 Baso # (Auto) 0.0 Total Counted 100 Neutrophils % (Manual) 92 H Lymphocytes % (Manual) 5 L Monocytes % (Manual) 3 Platelet Estimate Normal RBC Morphology Normal Sodium 143 Potassium 4.2 Chloride 110 H Carbon Dioxide 26 Anion Gap 11.2 BUN 27 H Creatinine 1.53 H Estimated Creat Clear 64 Estimated GFR 34 L Est GFR ( Amer) 41 L Glucose 117 H POC Glucose 97 Calcium 8.6 Magnesium 2.2 Total Bilirubin 0.5 AST 20 ALT 40 Alkaline Phosphatase 100 Total Protein 5.9 L Albumin 3.0 L Globulin 2.9 Albumin/Globulin Ratio 1.0 L DS: Diagnosis - Discharge Diagnosis (1) CKD (chronic kidney disease) stage 3, GFR 30-59 ml/min Status: Chronic (2) Adrenal disease Status: Chronic (3) Left lower lobe pneumonia Status: Ruled-out (4) Physical deconditioning Status: Chronic (5) Class 2 obesity due to excess calories in adult Status: Chronic Discharge Plan - Patient Discharge Instructions ACTIVITY: Continue current activity DIET: continue same diet Patient Instructions: DI for Asthma -- Adult, DI for Pneumonia -- Adult, Chronic Renal Failure - Follow up Plan Follow up with: Marc Rodriguez MD [Staff Physician] - 1 week Disposition: Home, Self-Shelter Medications: Home Medications Medication Instructions Recorded Confirmed Type Alendronate Sodium [Alendronate 70 mg PO WEEKLY 10/09/17 01/18/19 History 70mg Tablet] Cholecalciferol (Vitamin D3) 50,000 unit PO DIRECTED 10/09/17 01/18/19 History [Vitamin D3 50,000 unit Cap] Donepezil HCl [Aricept 10mg 10 mg PO HS 10/09/17 01/18/19 History tablet] Eszopiclone [Lunesta] 3 mg PO HS 10/09/17 01/18/19 History Levothyroxine Sodium 100 mcg PO DAILY 10/09/17 01/18/19 History [Levothyroxine 88mcg (0.088mg) Tab] Lutein 20 mg PO DAILY 10/09/17 01/18/19 History Quetiapine Fumarate [Seroquel] 300 mg PO HS 10/09/17 01/18/19 History Rosuvastatin Calcium [Crestor] 40 mg PO HS 10/09/17 01/19/19 History Sodium Bicarbonate [Sodium 650 mg PO BID 10/09/17 01/19/19 History Bicarbonate 650mg Tablet] cycloSPORINE [Restasis] 1 each OP DAILY 10/09/17 01/18/19 History lamoTRIgine [Lamictal] 100 mg PO BID 10/09/17 01/18/19 History Albuterol Sulfate [Albuterol HFA 2 puffs PO Q6HP PRN 10/19/17 01/18/19 History Inhaler] Gabapentin [Gabapentin 100mg Cap] 100 mg PO HS 12/18/17 01/18/19 History Memantine HCl [Memantine 5mg 10 mg PO BID 12/18/17 01/18/19 History Tablet] Montelukast Sodium [Montelukast 10 mg PO HS 12/18/17 01/18/19 History 10mg Tab] Duloxetine HCl [Cymbalta 30mg 60 mg PO DAILY 01/26/18 01/19/19 History capsule] Hydrocortisone 10 mg PO BID 01/26/18 01/18/19 History Omeprazole [Omeprazole 40mg 40 mg PO DAILY 01/26/18 01/18/19 History Capsule] Duloxetine HCl [Cymbalta 30mg 30 mg PO QPMWM 02/23/18 01/18/19 History capsule] Fluticasone Furoate [Arnuity 100 mcg IH DAILY 01/18/19 01/18/19 History Ellipta] Fluticasone/Vilanterol [Breo 1 inh IH DAILY 01/18/19 01/18/19 History Ellipta 200-25 Mcg INH] Benzonatate 200 mg PO TID 01/19/19 01/19/19 History Cyanocobalamin (Vitamin B-12) 1,000 mcg IM WEEKLY 01/19/19 01/19/19 History [Cyanocobalamin 1,000mcg/mL Vial] Hydrocortisone [Cortef] 20 mg PO BID 01/19/19 01/19/19 History Ipratropium/Albuterol Sulfate 3 ml IH QID 01/19/19 01/19/19 History [Duoneb 3mL neb] Metoprolol Tartrate [Lopressor 12.5 mg PO BID 01/19/19 01/19/19 History 25mg tablet] Nystatin [Nystatin Susp 500,000 1 tsp PO QID 01/19/19 01/19/19 History Units/5mL Udc] Promethazine HCl/Codeine 10 ml PO Q4HP PRN #240 ml 01/19/19 Rx [Phenergan w/Codeine 6.25mg/10mg 5mL Udc] Promethazine/Dextromethorphan 5 ml PO TID 01/19/19 01/19/19 History [Promethazine-Dm Solution] levoFLOXacin [Levaquin 500mg 500 mg PO DAILY #7 tab 01/19/19 Rx tab] predniSONE [Deltasone 10mg tablet] 10 mg PO DAILY 01/19/19 01/19/19 History Prescriptions/Medication Reconciliation: New levoFLOXacin [Levaquin 500mg tab] 500 mg PO DAILY #7 tab Promethazine HCl/Codeine [Phenergan w/Codeine 6.25mg/10mg 5mL Udc] 10 ml PO Q4HP PRN #240 ml PRN Reason: Cough Continued Donepezil HCl [Aricept 10mg tablet] 10 mg PO HS Levothyroxine Sodium [Levothyroxine 88mcg (0.088mg) Tab] 100 mcg PO DAILY Sodium Bicarbonate [Sodium Bicarbonate 650mg Tablet] 650 mg PO BID Quetiapine Fumarate [Seroquel] 300 mg PO HS Lutein 20 mg PO DAILY lamoTRIgine [Lamictal] 100 mg PO BID Eszopiclone [Lunesta] 3 mg PO HS cycloSPORINE [Restasis] 1 each OP DAILY Cholecalciferol (Vitamin D3) [Vitamin D3 50,000 unit Cap] 50,000 unit PO DIRECTED Alendronate Sodium [Alendronate 70mg Tablet] 70 mg PO WEEKLY Memantine HCl [Memantine 5mg Tablet] 10 mg PO BID Montelukast Sodium [Montelukast 10mg Tab] 10 mg PO HS Gabapentin [Gabapentin 100mg Cap] 100 mg PO HS Duloxetine HCl [Cymbalta 30mg capsule] 60 mg PO DAILY Fluticasone Furoate [Arnuity Ellipta] 100 mcg IH DAILY Metoprolol Tartrate [Lopressor 25mg tablet] 12.5 mg PO BID Benzonatate 200 mg PO TID Cyanocobalamin (Vitamin B-12) [Cyanocobalamin 1,000mcg/mL Vial] 1,000 mcg IM WEEKLY Hydrocortisone [Cortef] 20 mg PO BID Nystatin [Nystatin Susp 500,000 Units/5mL Udc] 1 tsp PO QID predniSONE [Deltasone 10mg tablet] 10 mg PO DAILY Promethazine/Dextromethorphan [Promethazine-Dm Solution] 5 ml PO TID Rosuvastatin Calcium [Crestor] 40 mg PO HS Albuterol Sulfate [Albuterol HFA Inhaler] 2 puffs PO Q6HP PRN PRN Reason: BREATHING Omeprazole [Omeprazole 40mg Capsule] 40 mg PO DAILY Hydrocortisone 10 mg PO BID Duloxetine HCl [Cymbalta 30mg capsule] 30 mg PO QPMWM Fluticasone/Vilanterol [Breo Ellipta 200-25 Mcg INH] 1 inh IH DAILY No Action Ipratropium/Albuterol Sulfate [Duoneb 3mL neb] 3 ml IH QID
[2019-01-19 10:13] LABS: Lymphocytes % 6 % (10-50); Monocytes % 5 % (2-9); Neutrophils % 89 % (42-76); RBC Morphology Normal; Total Cells Counted 100
== END | disposition home or self-care (01) ==
LOC: 2ND
PROVIDERS: ADMIT Internal Medicine Adolescent Medicine; ATTEND Internal Medicine Adolescent Medicine
DX: J45.909 Unspecified asthma, uncomplicated; Z88.1 Allergy status to other antibiotic agents; Z68.38 Body mass index [BMI] 38.0-38.9, adult; M62.81 Muscle weakness (generalized); E27.40 Unspecified adrenocortical insufficiency; J18.9 Pneumonia, unspecified organism; Z88.6 Allergy status to analgesic agent; E78.5 Hyperlipidemia, unspecified; Z79.899 Other long term (current) drug therapy; E66.09 Other obesity due to excess calories; N18.3 Chronic kidney disease, stage 3 (moderate); Z79.51 Long term (current) use of inhaled steroids
CPT/HCPCS: 36415; 71250; 80053; 82962; 83735; 85007; 85025; 87040; 94640; 94761; G0378; J1956

== ENCOUNTER → 2019-02-07 09:27 | Outpatient (CLI) | payer MEDICARE, BC, SELFPAY ==
--- NOTE | 2019-02-07 09:31 | XR_ITS ---
XR DEXA axial skeleton HISTORY: ITS.REASON: OSTEOPOROSIS ORDERING PHYSICIAN: Ryan Duval PATIENT AGE: 63 years COMPARISON: 04/07/2017 FINDINGS: The BMD measured at the Left femoral neck is 0.766 g/cm squared with a T score of -2.0. This is considered Osteopenic according to the World Health Organization criteria. Fracture risk is Moderate. Treatment is advised. L1 L4 density has T score -1.3 and has increased by 4%. The hip density is unchanged. IMPRESSION: Osteopenia with moderate fracture risk. Treatment is suggested. Suggest follow-up exam January 2021
== END ==
PROVIDERS: PCP Internal Medicine Adolescent Medicine; Visit Provider Internal Medicine Endocrinology, Diabetes & Metabolism
DX: M81.0 Age-related osteoporosis without current pathological fracture (principal)
CPT/HCPCS: 77080

== ENCOUNTER → 2019-02-15 14:18 | Outpatient (CLI) | payer MEDICARE, BC, SELFPAY ==
--- NOTE | 2019-02-15 14:36 | HMH.PMPROC ---
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 She is having increased pain. She is become much more active status post surgery of her shoulder. She rates her pain an 8 out of 10 today she is currently on gabapentin infusion of 5.3 mg on a flex dosing we will make some changes today today and see if this is beneficial for her she denies side effects or medication. Patient's REY #[id number] reviewed and appropriate. Physical Exam General: Alert and oriented x3, no acute distress, pleasant and cooperative, [on room air] Lungs: Resps E/U, Symmetrical chest expansion, Eyes: PERRL Musculoskeletal: Flexion and extension of lumbar spine somewhat guarded secondary to pain, deep tendon reflexes normal, strength in upper and lower extremities [5/5], [abnormal gait noted] Neurological: speech clear, marketing clerk equal, no gross sensory deficits Procedure Details:: Informed consent was obtained and the risk and benefits of the procedure were explained to the patient. The patient was taken to the procedure room where noninvasive monitoring was placed including noninvasive blood pressure cuff and pulse oximeter. Patient's pump was interrogated. The area over the pump was cleansed with chlorhexidine as a cleansing solution. In sterile fashion the pump was accessed with a 22-gauge needle. Approximately 2 mL's were removed of the pump solution and discarded appropriately. The pump was then refilled with 20 mL's of Dilaudid 25 mg/mL. The needle was withdrawn and a bandage was placed over the puncture site. The infusion rate was reprogrammed to 7 mg/day on a constant flow. The patient tolerated the procedure well. Plan and Disposition:: Patient did have a discrepancy in her reservoir volume. We will keep monitoring this to see if this is potentially end-of-life issue with her generator. Patient will be seen back in the office in 3 weeks to be reassessed. Patient is instructed to call the office if she has any issues prior to her next appointment. Dr. Kidd has reviewed this note and agrees with this plan of care. This note was dictated using voice recognition software and may contain errors or omissions
--- NOTE | 2019-02-15 14:40 | P.PCN_ITS ---
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 She is having increased pain. She is become much more active status post surgery of her shoulder. She rates her pain an 8 out of 10 today she is currently on gabapentin infusion of 5.3 mg on a flex dosing we will make some changes today today and see if this is beneficial for her she denies side effects or medication. Patient's REY #[id number] reviewed and appropriate. Physical Exam General: Alert and oriented x3, no acute distress, pleasant and cooperative, [on room air] Lungs: Resps E/U, Symmetrical chest expansion, Eyes: PERRL Musculoskeletal: Flexion and extension of lumbar spine somewhat guarded secondary to pain, deep tendon reflexes normal, strength in upper and lower extremities [5/5], [abnormal gait noted] Neurological: speech clear, pulverizer equal, no gross sensory deficits Procedure Details:: Informed consent was obtained and the risk and benefits of the procedure were explained to the patient. The patient was taken to the procedure room where noninvasive monitoring was placed including noninvasive blood pressure cuff and pulse oximeter. Patient's pump was interrogated. The area over the pump was cleansed with chlorhexidine as a cleansing solution. In sterile fashion the pump was accessed with a 22-gauge needle. Approximately 2 mL's were removed of the pump solution and discarded appropriately. The pump was then refilled with 20 mL's of Dilaudid 25 mg/mL. The needle was withdrawn and a bandage was placed over the puncture site. The infusion rate was reprogrammed to 7 mg/day on a constant flow. The patient tolerated the procedure well. Plan and Disposition:: Patient did have a discrepancy in her reservoir volume. We will keep monitoring this to see if this is potentially end-of-life issue with her generator. Patient will be seen back in the office in 3 weeks to be reassessed. Patient is instructed to call the office if she has any issues prior to her next appointment. Dr. Kidd has reviewed this note and agrees with this plan of care. This note was dictated using voice recognition software and may contain errors or omissions
[2019-02-15 15:18] LABS: Amphetamine/Metha Screen,Urine Negative ng/mL (<1000); Barbiturates Screen,Urine Negative ng/mL (<200); Benzodiazepines Screen,Urine Negative ng/mL (<200); Cannabinoid Screen,Urine Negative ng/mL (<50); Cocaine Screen,Urine Negative ng/mL (<300); Methadone Screen,Urine Negative ng/mL (<300); Opiate Screen,Urine Positive ng/mL (<300); Phencyclidine Screen,Urine Negative ng/mL (<25)
== END ==
PROVIDERS: Anesthesiology; Visit Provider Clinical Nurse Specialist Family Health
DX: Z79.899 Other long term (current) drug therapy (principal)
CPT/HCPCS: 80305

== ENCOUNTER → 2019-03-11 14:13 | Outpatient (CLI) | payer MEDICARE, BC, SELFPAY ==
--- NOTE | 2019-03-11 14:22 | CT_ITS ---
CT chest wo con HISTORY: Cough, follow-up ITS.REASON: COUGH ORDERING PHYSICIAN: Kaitlin Joiner APRN PATIENT AGE: 63 years COMPARISON: 01/18/2019 Technique: Axial images were obtained. Sagittal, and coronal reformatted images are also generated and reviewed. All CT scans at the facility use one or more dose reduction, viz: automated exposure control, ma/kV adjustment per patient size (including targeted exams where dose is matched to indication, i.e. head), or iterative reconstruction technique. FINDINGS: There is asymmetric nodularity in the superior aspect of the left breast. This could be due to fibroglandular tissue. Developing nodule is considered and mammogram is suggested for further evaluation. No mediastinal or hilar mass. Coronary artery calcifications are present. Mild cardiomegaly. There are mild atelectatic changes in the right upper lobe posteriorly. Atelectatic or fibrotic changes are present in the lower lobes. This is not significantly changed. There is a calcified granuloma in the left upper lobe. Atelectatic or fibrotic changes are present in the left lung base. The area of reticulonodular infiltrate in the right upper lobe patient some improvement with some minimal residual density in this region. IMPRESSION: 1. Scattered areas of atelectasis/scarring. 2. Reticulonodular infiltrate in the right upper lobe aeration some improvement with some minimal residual density in the right upper lobe posteriorly which could be related to developing scarring 3. Nodularity in the superior aspect of the left breast. Mammogram and perhaps ultrasound suggested for further evaluation. 4. Other nonacute findings as described above
== END ==
PROVIDERS: PCP Internal Medicine Adolescent Medicine; Visit Provider Nurse Practitioner Acute Care
DX: R05 Cough (principal)
CPT/HCPCS: 71250

== ENCOUNTER → 2019-03-15 10:03 | Outpatient (POV) | payer MEDICARE, BC, SELFPAY ==
[2019-03-15 10:33] VITALS: BP 137/70; PULSE 70; RESP 18; O2SAT 99; BMI 39.1
--- NOTE | 2019-03-15 10:48 | HMH.PAINSOAP ---
[facility] Pain Management SOAP Note Subjective:: Patient is a pleasant 63-year-old white female who presents today for follow-up after intrathecal pain pump increase at her last visit. Patient is just not having any relief with our continual increases. Patient states that her pump is to be very beneficial for her however lately it has not been. I am concerned in regards to the pain pump due to the fact that it is older and also due to the fact that she has fallen multiple times. We discussed potentially catheter dye study. She rates her pain a 7 out of 10. ROS General: no recent weight change, no fever, no sleep disturbances Respiratory: no cough, no shortness of air, no recurring pulmonary infections Cardiovascular/Peripheral Vascular: No chest pain, No palpitations, no edema, no shortness of breath. Gastrointestinal: no incontinence, normal bowel movements reported Genitourinary: no incontinence Musculoskeletal: Back pain, leg pain Psychiatric: normal mood/ affect Neurological: [denies weakness in extremities], [denies balance issues] Objective:: Physical Exam General: Alert and oriented x3, no acute distress, pleasant and cooperative, [on room air] Lungs: Resps E/U, Symmetrical chest expansion, Eyes: PERRL Musculoskeletal: Flexion and extension of lumbar spine somewhat guarded secondary to pain, deep tendon reflexes normal, strength in upper and lower extremities [5/5], [abnormal gait noted] Neurological: speech clear, saw boss equal, no gross sensory deficits Assessment:: Degenerative disc disease lumbar spine with lumbar radiculopathy Plan:: We will schedule catheter dye study to help determine if her pump is in the proper position. We also briefly discussed potentially changing the pump out due to nearing the end of life and the issues she is been having recently. I will follow-up with the patient after this reassess her symptoms at that time she is been instructed to call the office if she has any issues prior to her next appointment. Dr. Kidd has reviewed this note and agrees with this plan of care. This note was dictated using voice recognition software and may contain errors or omissions Pain Management Hx Components *Have you ever received a pneumonia vaccine?: Yes *Have you received a flu vaccine this season?: Yes - *Social History *Occupational Status:: other *Travel in the last 8 weeks: None
--- NOTE | 2019-03-15 10:52 | P.CONS_ITS ---
[facility] Pain Management SOAP Note Subjective:: Patient is a pleasant 63-year-old white female who presents today for follow-up after intrathecal pain pump increase at her last visit. Patient is just not having any relief with our continual increases. Patient states that her pump is to be very beneficial for her however lately it has not been. I am concerned in regards to the pain pump due to the fact that it is older and also due to the fact that she has fallen multiple times. We discussed potentially catheter dye study. She rates her pain a 7 out of 10. ROS General: no recent weight change, no fever, no sleep disturbances Respiratory: no cough, no shortness of air, no recurring pulmonary infections Cardiovascular/Peripheral Vascular: No chest pain, No palpitations, no edema, no shortness of breath. Gastrointestinal: no incontinence, normal bowel movements reported Genitourinary: no incontinence Musculoskeletal: Back pain, leg pain Psychiatric: normal mood/ affect Neurological: [denies weakness in extremities], [denies balance issues] Objective:: Physical Exam General: Alert and oriented x3, no acute distress, pleasant and cooperative, [on room air] Lungs: Resps E/U, Symmetrical chest expansion, Eyes: PERRL Musculoskeletal: Flexion and extension of lumbar spine somewhat guarded s econdary to pain, deep tendon reflexes normal, strength in upper and lower extremities [5/5], [abnormal gait noted] Neurological: speech clear, icicle machine operator equal, no gross sensory deficits Assessment:: Degenerative disc disease lumbar spine with lumbar radiculopathy Plan:: We will schedule catheter dye study to help determine if her pump is in the proper position. We also briefly discussed potentially changing the pump out due to nearing the end of life and the issues she is been having recently. I will follow-up with the patient after this reassess her symptoms at that time she is been instructed to call the office if she has any issues prior to her next appointment. Dr. Kidd has reviewed this note and agrees with this plan of care. This note was dictated using voice recognition software and may contain errors or omissions Pain Management Hx Components *Have you ever received a pneumonia vaccine?: Yes *Have you received a flu vaccine this season?: Yes - *Social History *Occupational Status:: other *Travel in the last 8 weeks: None
--- NOTE | 2019-04-06 10:56 | PC.NURSE ---
REFILLS FOR GABAPENTIN 100MG BID CALLED INTO [facility] PER PROVIDER ORDER. SPOKE WITH Shantanu CAMPOS APRN WHO VERIFIED DOSAGE TO BE 100MG BID.
== END ==
PROVIDERS: PCP Internal Medicine Adolescent Medicine; Visit Provider Clinical Nurse Specialist Family Health
DX: M51.16 Intervertebral disc disorders with radiculopathy, lumbar region (principal)
CPT/HCPCS: 62368; 99212

== ENCOUNTER → 2019-04-25 12:40 | Outpatient (POV) | payer MEDICARE, BC, SELFPAY ==
[2019-04-25 13:04] VITALS: BP 109/55; PULSE 62; RESP 18; O2SAT 98; BMI 38.3
--- NOTE | 2019-04-26 10:47 | HMH.PAINSOAP ---
[facility] Pain Management SOAP Note Subjective:: Patient is a very pleasant 63-year-old white female who presents today for follow-up after intrathecal pain pump and catheter change out. Patient states she is doing much better rating her pain a 5 out of 10 only in the incisional area. Patient is doing well currently on a intrathecal infusion of Dilaudid. She denies side effects. She was given some Percocet for postop pain however she is no longer taking this. ROS General: no recent weight change, no fever, no sleep disturbances Respiratory: no cough, no shortness of air, no recurring pulmonary infections Cardiovascular/Peripheral Vascular: No chest pain, No palpitations, no edema, no shortness of breath. Gastrointestinal: no incontinence, normal bowel movements reported Genitourinary: no incontinence Musculoskeletal: Back pain, leg pain, and slight pain Psychiatric: normal mood/ affect, [denies depression], [denies anxiety] Neurological: [denies weakness in extremities], [denies balance issues] Objective:: Physical Exam General: Alert and oriented x3, no acute distress, pleasant and cooperative, [on room air] Lungs: Resps E/U, Symmetrical chest expansion, [CTA bilateral] Eyes: PERRL Musculoskeletal: Flexion and extension of lumbar spine somewhat guarded secondary to pain, deep tendon reflexes normal, strength in upper and lower extremities [5/5], [abnormal gait noted] Neurological: speech clear, blending technician equal, no gross sensory deficits Assessment:: Degenerative disc disease lumbar spine with lumbar radiculopathy along with postlaminectomy syndrome lumbar spine Plan:: Patient shows no sign symptoms of infection she is to continue her antibiotics to completion. Overall patient is doing well we will see the patient back in 2 weeks for stitch removal. She is been instructed to call the office if she has any issues prior to this appointment. Dr. Kidd has reviewed this note and agrees with this plan of care. This note was dictated using voice recognition software and may contain errors or omissions [facility] History I have reviewed the patient's past medical history: Yes Medical History: Reports:: Asthma, Coronary Artery Disease, Depression, Gastroesophageal Reflux Disease(GERD), Hyperlipidemia, Hypertension, Renal Disease Denies:: Cancer, Diabetes Mellitus Type 1, Diabetes Mellitus Type 2, Internal Pacemaker, MRSA, Seizures *Have you ever received a pneumonia vaccine?: Yes *Have you received a flu vaccine this season?: Yes Other Medical History: Reports: Anemia, Arthritis, Cataracts, Fibromyalgia, Glaucoma (bilateral), Hypothyroidism, Sinus Problems, Thyroid Disease. Denies: Blood Transfusion Reaction Laterality Cases: Left: Carpal Tunnel Release, Bilateral: Arthroscopy Knee, Breast Biopsy, Lumpectomy Other Surgeries: Yes: Appendectomy, Cardiac Catheterization, Cholecystectomy, Colonoscopy, Colon Resection, EGD, Hysterectomy-Partial, Ureter Stent, Other (colon surgery,right foot). No: Pacemaker Amputation: No Fractures: Yes ((R) humerus, (L) wrist,) - *Social History Smoking Status: Never smoker Tobacco Type: cigarettes Alcohol Intake: never Substance Use Type: denies use *Occupational Status:: other Housing: house Household Members: spouse *Travel in the last 8 weeks: None - Psychiatric History Pschychiatric History:: Reports:: Depression Family Hx:: Anemia, Cancer, Coronary Artery Disease, Diabetes, Heart Attack, Hyperlipidemia, Hypertension, Stroke, Thyroid Disorder
== END ==
PROVIDERS: PCP Internal Medicine Adolescent Medicine; Visit Provider Clinical Nurse Specialist Family Health
DX: M51.16 Intervertebral disc disorders with radiculopathy, lumbar region (principal); M96.1 Postlaminectomy syndrome, not elsewhere classified
CPT/HCPCS: 99212

== ENCOUNTER → 2019-04-29 10:33 | Outpatient (CLI) | payer MEDICARE, BC, SELFPAY ==
--- NOTE | 2019-04-29 10:36 | MM_ITS ---
PROCEDURE: MM DIG SCREENING MAMM BI W/CAD CLINICAL INDICATION: SCREENING There is no personal or family history of breast cancer. COMPARISON: DIGMAMMS MAMMOGRAM SCREEN-REAMER HAND N/C from 06/19/2009 DIGMAMMDX MAMMOGRAM DX-REAMER HAND N/C from 07/06/2009 DMSB DIG MAMM-SCREEN YONNY from 09/26/2015 TECHNIQUE: Standard CC and MLO images were obtained. R2 CAD reviewed. FINDINGS: Mild to moderate scattered fibroglandular densities are seen in the central portions of both breasts on a background of fatty breast parenchyma. There is a mole marker left breast. There are tiny nodular densities near the axillary tails of each breast likely small low-lying or intramammary nodes. There are couple of benign-appearing calcifications near the nipple left breast. There is no suspicious lesion and no suspicious microcalcifications. IMPRESSION: Stable exam with fibrofatty parenchyma and no suspicious lesions seen BI-RAD Category: 2 Benign Finding(s) FOLLOW-UP: 1YR 1 Year Follow-up (A letter has been sent to the patient regarding results of the study.) Dictated by: Dr. Ez Miner MD 05/03/2019 12:[address] Ez Miner MD in [place] 05/03/2019 12:46
== END ==
PROVIDERS: PCP Internal Medicine Adolescent Medicine; Visit Provider Internal Medicine Adolescent Medicine
DX: Z12.31 Encounter for screening mammogram for malignant neoplasm of breast (principal)
CPT/HCPCS: 77067

== ENCOUNTER → 2019-05-02 12:57 | Outpatient (POV) | payer MEDICARE, BC, SELFPAY ==
[2019-05-02 13:24] VITALS: BP 122/72; PULSE 67; RESP 18; O2SAT 98; BMI 38.2
--- NOTE | 2019-05-02 13:33 | HMH.PAINSOAP ---
[facility] Pain Management SOAP Note Subjective:: Patient is a pleasant 63-year-old white female who presents today with some increasing pain around her incisional site. Patient incision looks well approximated however she does have a lot of tenderness around it. Patient and I discussed discontinuing the use of her abdominal binder at this time. We will put her on a prophylactic dose of Bactrim. Patient states that she is unable to tell if her normal pain is increased or if it is just the incisional pain. She rates her pain today a 7 out of 10. ROS General: no recent weight change, no fever, no sleep disturbances Respiratory: no cough, no shortness of air, no recurring pulmonary infections Cardiovascular/Peripheral Vascular: No chest pain, No palpitations, no edema, no shortness of breath. Gastrointestinal: no incontinence, normal bowel movements reported Genitourinary: no incontinence Musculoskeletal: Back pain, leg pain Psychiatric: normal mood/ affect Neurological: [denies weakness in extremities], [denies balance issues] Objective:: Physical Exam General: Alert and oriented x3, no acute distress, pleasant and cooperative, [on room air] Lungs: Resps E/U, Symmetrical chest expansion, Eyes: PERRL Musculoskeletal: Flexion and extension of lumbar spine somewhat guarded secondary to pain, deep tendon reflexes normal, strength in upper and lower extremities [5/5], [abnormal gait noted] Neurological: speech clear, lorry weigher equal, no gross sensory deficits Assessment:: Degenerative disc disease lumbar spine with lumbar radiculopathy Plan:: We will start the patient on Bactrim twice daily for a week. We will discontinue the use of her abdominal binder. We will not make any changes to her pump at this time due to the and known if it is incisional pain or her regular pain. We will see the patient back in 1 week and reassess her symptoms at that time she is been instructed to come to the office or the ER if any additional issues arise. Dr. Kidd has reviewed this note and agrees with this plan of care. This note was dictated using voice recognition software and may contain errors or omissions [facility] History I have reviewed the patient's past medical history: Yes Medical History: Reports:: Asthma, Coronary Artery Disease, Depression, Gastroesophageal Reflux Disease(GERD), Hyperlipidemia, Hypertension, Renal Disease Denies:: Cancer, Diabetes Mellitus Type 1, Diabetes Mellitus Type 2, Internal Pacemaker, MRSA, Seizures *Have you ever received a pneumonia vaccine?: Yes *Have you received a flu vaccine this season?: Yes Other Medical History: Reports: Anemia, Arthritis, Cataracts, Fibromyalgia, Glaucoma (bilateral), Hypothyroidism, Sinus Problems, Thyroid Disease. Denies: Blood Transfusion Reaction Laterality Cases: Left: Carpal Tunnel Release, Bilateral: Arthroscopy Knee, Breast Biopsy, Lumpectomy Other Surgeries: Yes: Appendectomy, Cardiac Catheterization, Cholecystectomy, Colonoscopy, Colon Resection, EGD, Hysterectomy-Partial, Ureter Stent, Other (colon surgery,right foot). No: Pacemaker Amputation: No Fractures: Yes ((R) humerus, (L) wrist,) - *Social History Smoking Status: Never smoker Tobacco Type: cigarettes Alcohol Intake: never Substance Use Type: denies use *Occupational Status:: other Housing: house Household Members: spouse *Travel in the last 8 weeks: None - Psychiatric History Pschychiatric History:: Reports:: Depression Family Hx:: Anemia, Cancer, Coronary Artery Disease, Diabetes, Heart Attack, Hyperlipidemia, Hypertension, Stroke, Thyroid Disorder
--- NOTE | 2019-05-02 13:37 | P.CONS_ITS ---
[facility] Pain Management SOAP Note Subjective:: Patient is a pleasant 63-year-old white female who presents today with some increasing pain around her incisional site. Patient incision looks well approximated however she does have a lot of tenderness around it. Patient and I discussed discontinuing the use of her abdominal binder at this time. We will put her on a prophylactic dose of Bactrim. Patient states that she is unable to tell if her normal pain is increased or if it is just the incisional pain. She rates her pain today a 7 out of 10. ROS General: no recent weight change, no fever, no sleep disturbances Respiratory: no cough, no shortness of air, no recurring pulmonary infections Cardiovascular/Peripheral Vascular: No chest pain, No palpitations, no edema, no shortness of breath. Gastrointestinal: no incontinence, normal bowel movements reported Genitourinary: no incontinence Musculoskeletal: Back pain, leg pain Psychiatric: normal mood/ affect Neurological: [denies weakness in extremities], [denies balance issues] Objective:: Physical Exam General: Alert and oriented x3, no acute distress, pleasant and cooperative, [on room air] Lungs: Resps E/U, Symmetrical chest expansion, Eyes: PERRL Musculoskeletal: Flexion and extension of lumbar spine somewhat guarded secondary to pain, deep tendon reflexes normal, strength in upper and lower extremities [5/5], [abnormal gait noted] Neurological: speech clear, asic engineer equal, no gross sensory deficits Assessment:: Degenerative disc disease lumbar spine with lumbar radiculopathy Plan:: We will start the patient on Bactrim twice daily for a week. We will discontinue the use of her abdominal binder. We will not make any changes to her pump at this time due to the and known if it is incisional pain or her regular pain. We will see the patient back in 1 week and reassess her symptoms at that time she is been instructed to come to the office or the ER if any additional issues arise. Dr. Kidd has reviewed this note and agrees with this plan of care. This note was dictated using voice recognition software and may contain errors or omissions [facility] History I have reviewed the patient's past medical history: Yes Medical History: Reports:: Asthma, Coronary Artery Disease, Depression, Gastroesophageal Reflux Disease(GERD), Hyperlipidemia, Hypertension, Renal Disease Denies:: Cancer, Diabetes Mellitus Type 1, Diabetes Mellitus Type 2, Internal Pacemaker, MRSA, Seizures *Have you ever received a pneumonia vaccine?: Yes *Have you received a flu vaccine this season?: Yes Other Medical History: Reports: Anemia, Arthritis, Cataracts, Fibromyalgia, Glaucoma (bilateral), Hypothyroidism, Sinus Problems, Thyroid Disease. Denies: Blood Transfusion Reaction Laterality Cases: Left: Carpal Tunnel Release, Bilateral: Arthroscopy Knee, Breast Biopsy, Lumpectomy Other Surgeries: Yes: Appendectomy, Cardiac Catheterization, Cholecystectomy, Colonoscopy, Colon Resection, EGD, Hysterectomy-Partial, Ureter Stent, Other (colon surgery,right foot). No: Pacemaker Amputation: No Fractures: Yes ((R) humerus, (L) wrist,) - *Social History Smoking Status: Never smoker Tobacco Type: cigarettes Alcohol Intake: never Substance Use Type: denies use *Occupational Status:: other Housing: house Household Members: spouse *Travel in the last 8 weeks: None - Psychiatric History Pschychiatric History:: Reports:: Depression Family Hx:: Anemia, Cancer, Coronary Artery Disease, Diabetes, Heart Attack, Hyperlipidemia, Hypertension, Stroke, Thyroid Disorde
== END ==
PROVIDERS: PCP Internal Medicine Adolescent Medicine; Visit Provider Clinical Nurse Specialist Family Health
DX: M51.16 Intervertebral disc disorders with radiculopathy, lumbar region (principal)
CPT/HCPCS: 62368; 99212

== ENCOUNTER → 2019-05-05 08:50 | Outpatient (CLI) | payer MEDICARE, BC, SELFPAY ==
--- NOTE | 2019-05-05 08:58 | CT_ITS ---
PROCEDURE: CT ABDOMEN WO CON CLINICAL HISTORY: ABD PAIN COMPARISON: No exams were available for comparison TECHNIQUE: Axial images obtained with sagittal and coronal reformats. All CT scans at the facility use one or more dose reduction, viz: automated exposure control, ma/kV adjustment per patient size (including targeted exams where dose is matched to indication, i.e. head), or iterative reconstruction technique. FINDINGS: There are some strands of increased density in the lung bases bilaterally along with posterior bilateral pleural thickening. There are clips in the gallbladder fossa from cholecystectomy. Liver, pancreas and spleen are normal. Adrenal glands are normal. There is at least mild atrophy of the left kidney. Right kidney appears normal. There is no aortic dilatation. There has probably been at least partial colectomy. There is no bowel dilatation, wall thickening and there is no free air or ascites. There is a spinal cord stimulator present and along the right posterior subcutaneous soft tissues at the pelvic level there is a oval-shaped hypodense focus measuring 8.1 centimeters in greatest diameter. IMPRESSION: Cholecystectomy and colon surgery. Nonspecific mild atrophy of the left kidney. Hypodense focus in the pelvic right posterior subcutaneous soft tissues adjacent to the stimulator could be old hematoma or seroma. There is associated punctate air density and abscess is not entirely ruled out. Correlate with symptoms at this site. Lower chest linear atelectasis or scarring with pleural thickening. Dictated by: Cole Lemus 05/05/2019 09:50 Electronically signed by Cole Lemus in [place] 05/05/2019 09:50
== END ==
PROVIDERS: PCP Internal Medicine Adolescent Medicine; Visit Provider Nurse Practitioner Family
DX: R10.9 Unspecified abdominal pain (principal)
CPT/HCPCS: 74150

== ENCOUNTER → 2019-05-09 13:52 | Outpatient (POV) | payer MEDICARE, BC, SELFPAY ==
[2019-05-09 14:01] VITALS: BP 134/68; PULSE 79; RESP 18; O2SAT 94; BMI 38.3
--- NOTE | 2019-05-10 08:29 | HMH.PMPROC ---
- Procedure Date: 05/09/19 Time: 14:30 Anesthesiologist:: Pebbles Alvarado APRN Complications:: None Pre-procedure Diagnosis:: Degenerative disc disease lumbar spine lumbar radiculopathy Post-procedure Diagnosis:: Same Indications for Procedure:: Patient is a 63-year-old white female who presents today for stitch removal. At her last visit patient was doing well with her intrathecal dose. However today she is in much more pain rating her pain a 9 out of 10 she is having difficulty with pain in her legs. She states that it feels like it did when the pain pump was not working. Patient did have some redness around her incisional site. We will put her on additional antibiotics she is continuing to take these. I discussed with her leaving her abdominal binder off at this time I am slightly concerned that it is irritated. They do put ice on it at times I discussed with them to ensure that there is a barrier between the skin and the ice pack. Patient was given a one-time bolus of 0.4 mg in the office. She did not have any relief with this. We will remove the stitches today we will change her to a periodic flow to see if this is beneficial. She denies any side effects at this time. 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 The patient was taken to the procedure room where noninvasive monitoring was placed including noninvasive blood pressure cuff and pulse oximeter. Patient's pump was interrogated and reprogrammed. The infusion rate was changed to 0.4 milligrams every 2 hours of Dilaudid. The patient tolerated the procedure well. Plan and Disposition:: We will have a catheter dye study scheduled for Thursday concerns in regards to her catheter due to the fact that she is in increased pain. I will follow-up with the patient after this reassess her symptoms at that time. Patient is to continue her antibiotic regimen. Dr. Kidd has reviewed this note and agrees with this plan of care. This note was dictated using voice recognition software and may contain errors or omissions
== END ==
PROVIDERS: PCP Internal Medicine Adolescent Medicine; Visit Provider Clinical Nurse Specialist Family Health
DX: M51.16 Intervertebral disc disorders with radiculopathy, lumbar region (principal)
CPT/HCPCS: 62368

== ENCOUNTER → 2019-05-24 09:44 | Outpatient (POV) | payer MEDICARE, BC, SELFPAY ==
--- NOTE | 2019-05-24 10:27 | HMH.PMPROC ---
- Procedure Date: 05/24/19 Time: 10:27 Anesthesiologist:: Makeda Nuno APRN Complications:: None Pre-procedure Diagnosis:: Degenerative disc disease lumbar spine with lumbar radiculopathy Post-procedure Diagnosis:: Same Indications for Procedure:: Patient is a pleasant 63-year-old white female who presents today for intrathecal pain pump reprogramming. She currently has a Dilaudid intrathecal pump at 6 mg/day. Patient says that she recently underwent a catheter change secondary to kinking of her catheter. Patient says that she was continuing to have increased pain and did undergo a catheter dye study. She is having increased pain today in her low back with radiation into her bilateral legs. She also continues to have pain around her incision site. The patient says she has not had any drainage, redness, or fevers. She does have some generalized edema she says that has not gone away since her catheter was changed. Patient denies any side effects to the medications. Her Romeo #[id number] has been reviewed and is appropriate her urine drug screens have been appropriate. She would like an increase in her medication today. Physical exam General: Alert and oriented x3, no acute distress, pleasant and cooperative, [on room air] Lungs: Respirations even and unlabored, symmetrical chest expansion Eyes: PERRL Musculoskeletal: Flexion and extension of lumbar spine somewhat guarded secondary to pain, deep tendon reflexes normal, strength in upper and lower extremities [5/5], [abnormal gait noted] Neurological: Speech clear, expenditure requisition clerk equal, no gross sensory deficit Procedure Details:: Informed consent was obtained and the risk and benefits of the procedure were explained to the patient. Patient was taken to the procedure room where noninvasive monitoring was placed including noninvasive blood pressure cuff and pulse oximeter. Patient's pump was interrogated and was reprogrammed to Dilaudid 0.55 mg every 2 hours. The patient tolerated the procedure well with no complications. Plan and Disposition:: We will increase the patient's intrathecal pain pump today to Dilaudid 6.6 mg/day. Patient is on periodic flow we will put her dosing at 0.55 mg every 2 hours. We will see the patient back next week with her scheduled appointment. She has been instructed to contact the clinic if she has any concerns before her next appointment. She will continue with anti-inflammatories and a home stretching program. Dr. Kidd has reviewed this note and agrees with this plan of care. This note was dictated using voice recognition software and make contain errors or omissions.
--- NOTE | 2019-05-24 10:31 | P.PCN_ITS ---
- Procedure Date: 05/24/19 Time: 10:27 Anesthesiologist:: Makeda Nuno APRN Complications:: None Pre-procedure Diagnosis:: Degenerative disc disease lumbar spine with lumbar radiculopathy Post-procedure Diagnosis:: Same Indications for Procedure:: Patient is a pleasant 63-year-old white female who presents today for intrathecal pain pump reprogramming. She currently has a Dilaudid intrathecal pump at 6 mg/day. Patient says that she recently underwent a catheter change secondary to kinking of her catheter. Patient says that she was continuing to have increased pain and did undergo a catheter dye study. She is having increased pain today in her low back with radiation into her bilateral legs. She also continues to have pain around her incision site. The patient says she has not had any drainage, redness, or fevers. She does have some generalized edema she says that has not gone away since her catheter was changed. Patient denies any side effects to the medications. Her Romeo #[id number] has been reviewed and is appropriate her urine drug screens have been appropriate. She would like an increase in her medication today. 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 Patient was taken to the procedure room where noninvasive monitoring was placed including noninvasive blood pressure cuff and pulse oximeter. Patient's pump was interrogated and was reprogrammed to Dilaudid 0.55 mg every 2 hours. The patient tolerated the procedure well with no complications. Plan and Disposition:: We will increase the patient's intrathecal pain pump today to Dilaudid 6.6 mg/day. Patient is on periodic flow we will put her dosing at 0.55 mg every 2 hours. We will see the patient back next week with her scheduled appointment. She has been instructed to contact the clinic if she has any concerns before her next appointment. She will continue with anti-inflammatories and a home stretching program. Dr. Kidd has reviewed this note and agrees with this plan of care. This note was dictated using voice recognition software and make contain errors or omissions.
[2019-05-24 10:32] VITALS: BP 116/69; PULSE 73; RESP 18; O2SAT 99; BMI 37.5
== END ==
PROVIDERS: PCP Internal Medicine Adolescent Medicine; Visit Provider Clinical Nurse Specialist Family Health
DX: M51.16 Intervertebral disc disorders with radiculopathy, lumbar region (principal)
CPT/HCPCS: 62368

== ENCOUNTER → 2019-06-07 10:17 | Outpatient (POV) | payer MEDICARE, BC, SELFPAY ==
[2019-06-07 10:48] VITALS: BP 137/95; PULSE 70; RESP 18; O2SAT 98; BMI 37.5
--- NOTE | 2019-06-07 15:52 | HMH.PAINSOAP ---
[facility] Pain Management SOAP Note Subjective:: Patient is a pleasant 63-year-old white female who presents today for follow-up. Patient was seen last month on the and was given a piriformis injection in the right hip injection. She was also started back in physical therapy. Her pain pump was doing well for her however lately her pain is been mostly in her right hip. I did get some x-rays in regards to this. She has several degenerative issues in her right hip. I do believe an MRI would be beneficial. I also believe a consultation with orthopedic surgeon would be beneficial. She rates her pain today a 7 out of 10. She is having difficulty walking. She is currently on a intrathecal infusion of 0.55 mg every 2 hours of Dilaudid and bupivacaine ROS General: no recent weight change, no fever, no sleep disturbances Respiratory: no cough, no shortness of air, no recurring pulmonary infections Cardiovascular/Peripheral Vascular: No chest pain, No palpitations, no edema, no shortness of breath. Gastrointestinal: no new onset incontinence, normal bowel movements reported Genitourinary: no new onset incontinence Musculoskeletal: Right hip pain Psychiatric: normal mood/ affect Neurological: [denies new onset weakness in extremities], [denies new onset balance issues] Objective:: Physical Exam General: Alert and oriented x3, no acute distress, pleasant and cooperative, [on room air] Lungs: Resps E/U, Symmetrical chest expansion, Eyes: PERRL Musculoskeletal: Flexion and extension of lumbar spine somewhat guarded secondary to pain, deep tendon reflexes normal, strength in upper and lower extremities [5/5], [abnormal gait noted] Neurological: speech clear, 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 She will meet with [employer] eligibility services representative to have her pump emptied and then refill. We will also set her up with Dr. Patrick Ramos for a consultation. This will also be tomorrow. I will follow-up with the patient in 1 week reassess her symptoms at that time she is been instructed to call the office if she has any issues prior to her next appointment. Dr. Kidd has reviewed this note and agrees with this plan of care. This note was dictated using voice recognition software and may contain errors or omissions [facility] History I have reviewed the patient's past medical history: Yes Medical History: Reports:: Asthma, Coronary Artery Disease, Depression, Gastroesophageal Reflux Disease(GERD), Hyperlipidemia, Hypertension, Renal Disease Denies:: Cancer, Diabetes Mellitus Type 1, Diabetes Mellitus Type 2, Internal Pacemaker, MRSA, Seizures *Have you ever received a pneumonia vaccine?: Yes *Have you received a flu vaccine this season?: Yes Other Medical History: Reports: Anemia, Arthritis, Cataracts, Fibromyalgia, Glaucoma (bilateral), Hypothyroidism, Sinus Problems, Thyroid Disease. Denies: Blood Transfusion Reaction Laterality Cases: Left: Carpal Tunnel Release, Right: Other, Bilateral: Arthroscopy Knee, Breast Biopsy, Lumpectomy Other Surgeries: Yes: Appendectomy, Cardiac Catheterization, Cholecystectomy, Colonoscopy, Colon Resection, EGD, Hysterectomy-Total, Hysterectomy-Partial, Ureter Stent, Other (colon surgery,right foot). No: Pacemaker Amputation: No Fractures: Yes ((R) humerus, (L) wrist,) - *Social History Smoking Status: Never smoker Tobacco Type: cigarettes Alcohol Intake: never Substance Use Type: denies use *Occupational Status:: other Housing: house Household Members: spouse *Travel in the last 8 weeks: None - Psychiatric History Pschychiatric History:: Reports:: Depression Family Hx:: Anemia, Cancer, Coronary Artery Disease, Diabetes, Heart Attack, Hyperlipidemia, Hypertension, Stroke, Thyroid Disorder
== END ==
PROVIDERS: PCP Internal Medicine Adolescent Medicine; Visit Provider Clinical Nurse Specialist Family Health
DX: M25.561 Pain in right knee (principal); M51.16 Intervertebral disc disorders with radiculopathy, lumbar region
CPT/HCPCS: 62368

== ENCOUNTER → 2019-06-08 10:28 | Outpatient (CLI) | payer MEDICARE, BC, SELFPAY ==
--- NOTE | 2019-06-08 10:50 | MR_ITS ---
PROCEDURE: MR HIP RT WO CON CLINICAL INDICATION: RT HIP PAIN Right hip pain, abnormal radiograph suggesting avascular necrosis COMPARISON: XR HIP RT 2-3V W/PELVIS from 05/31/2019 TECHNIQUE: Routine multiplanar multi echo sequences are performed without gadolinium enhancement. FINDINGS: There is abnormal signal intensity within both hips. There is decreased T1 and increased T2 signal involving the superior aspect of the femoral heads on both sides in the subarticular region with geographic margins on the T1 weighted images. On the T2 weighted images there is somewhat more diffuse increase in T2 signal intensity within the femoral heads and neck on both sides left more so than right with small bilateral hip joint effusions. There is also a serpiginous thin line of decreased T1 signal in the subcapital region bilaterally/crescent sign. There may be some early cortical collapse on both sides. In addition there is mild diffuse edema in the acetabulum of both hips more extensive on the left. There is bone marrow edema of the femoral neck and intertrochanteric region bilaterally and is more intense on the left. No obvious fracture identified. IMPRESSION: 1. 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 2. The there is also bone marrow edema the of the femoral heads, neck, and intertrochanteric region bilaterally as well as the opposing acetabulum. This is more intense on the left and there are small bilateral hip joint effusions also more intense on the left. This edema could be in response to the avascular necrosis or superimposed osteoarthritis. Dictated by: Bruno Coello MD 06/08/2019 15:43 Electronically signed by Bruno Coello MD in [place] 06/10/2019 05:23
== END ==
PROVIDERS: PCP Internal Medicine Adolescent Medicine; Visit Provider Clinical Nurse Specialist Family Health
DX: M25.551 Pain in right hip (principal)
CPT/HCPCS: 73721

== ENCOUNTER → 2019-07-05 12:52 | Outpatient (CLI) | payer MEDICARE, BC, SELFPAY ==
--- NOTE | 2019-07-05 13:50 | XR_ITS ---
PROCEDURE: XR CHEST 2V CLINICAL HISTORY: BRONCHITIS COMPARISON: CXR2V XR chest 2V from 08/09/2018 FINDINGS: Mild cardiomegaly without failure. There are chronic changes with some vascular crowding and prominent pericardial fat pad in the right lung base medially. No lobar consolidation or collapse. There are old left-sided rib fractures with pleural reaction and there is a right shoulder prosthesis present. Degenerative changes are present in the thoracic spine. IMPRESSION: No change with no acute finding Dictated by: Bruno Coello MD 07/05/2019 15:27 Electronically signed by Bruno Coello MD in [place] 07/05/2019 15:27
== END ==
PROVIDERS: PCP Internal Medicine Adolescent Medicine; Visit Provider Internal Medicine Adolescent Medicine
DX: J45.901 Unspecified asthma with (acute) exacerbation (principal)
CPT/HCPCS: 71046

== ENCOUNTER 2019-07-14 08:00 | Outpatient (RCR) | payer MEDICARE, BC, SELFPAY ==
--- NOTE | 2019-06-07 09:31 | HMH.PTOPEV ---
PT Outpatient Evaluation Rehab PT Outpatient Evaluation Start: 06/07/19 08:19 Freq: Status: Active Protocol: Document 06/07/19 08:45 IZZY (Rec: 06/07/19 09:30 [email or web address] [id number]) Electronically Signed By Arturo Naqvi, PT 06/07/19 08:45 Outpatient Therapy Subjective History Subjective History Patient is a 63 year old female presenting to outpatient PT with reports of chronic low back pain with most recent exacerbation starting 03/21. She previously had a lumbar spine pain pump placed that was most recently replaced 04/20 after onset of most recent exacerbation. Symptoms have continued to worsen since placement of new pain pump. Consulted with pain managment and they ensured that there was no problem with pain pump. Most recent diagnostics of R hip indicate possibility of AVN. Comorbidities include hx of multiple R shoulder surgeries including R shoulder reverse TSA. Also, hx of hypothyroidism, B peripheral neuropathy and elevated BMI. Chief Complaint Pain,Paresthesia Symptom Type Sharp,Burning,Numbness, Shooting Symptoms Relieved By Rest/Positioning,Prescription Meds Symptoms Aggravated By Sitting,Standing,Bending/ Stooping,Physical Activity, Walking Prior Functional Limitations Reaching,Lifting,Housework, Sleeping,Standing,Sitting, Squatting,Recreation Activity, Walking,Stairs,Balance,Bending /Stooping Current Functional Limitations Reaching,Lifting,Housework, Sleeping,Standing,Sitting, Squatting,Recreation Activity, Walking,Stairs,Balance,Bending /Stooping Symptom Description Constant but Variable Level of pain today (0-10) 8 Pain scale - at its best (0-10) 7 Pain scale - at its worst (0-10) 10 Lumbopelvic Eval Posture Lumbar Spine Posture Standing Position Increased Lordosis Assistive device
== END 2019-07-14 08:05 | disposition home or self-care (01) ==
LOC: PT 08:00
PROVIDERS: PCP Internal Medicine Adolescent Medicine; Visit Provider Clinical Nurse Specialist Family Health
DX: M54.5 Low back pain (principal)
CPT/HCPCS: 97010; 97014; 97035; 97110; 97140; 97163; G0283

== ENCOUNTER 2019-07-14 09:00 | Outpatient (RCR) | payer MEDICARE, BC, SELFPAY | END 2019-07-14 09:05 | disposition home or self-care (01) | LOC: OT 09:00 | PROVIDERS: Visit Provider Orthopaedic Surgery | DX: Z96.611 Presence of right artificial shoulder joint (principal); R26.81 Unsteadiness on feet; M25.511 Pain in right shoulder | CPT/HCPCS: 97014; 97110; 97140; 97164; 97166; G0283 ==

== ENCOUNTER → 2019-10-03 13:08 | Outpatient (CLI) | payer MEDICARE, BC, SELFPAY ==
--- NOTE | 2019-10-03 13:13 | MR_ITS ---
PROCEDURE: MR HEAD/BRAIN WO CON CLINICAL INDICATION: BALANCE PROBLEM Dizziness, imbalance, unable to walk on phone COMPARISON: BRAINWW MR head/brain wo/w con from 08/17/2017 TECHNIQUE: Routine multiplanar multi echo sequences are performed without gadolinium enhancement. FINDINGS: No midline shift, mass effect, intracranial hemorrhage, hydrocephalus, or acute infarction is evident. Cerebellopontine angles, cerebellum, and brainstem have an unremarkable appearance. As noted previously there was a small T2 white matter hyperintensity in the deep white matter of the left frontal lobe somewhat less apparent on today's exam. The. There is a small area of increased T2 signal in the posterior aspect of the right occipital lobe consistent with a small area of encephalomalacia. This is not readily apparent on the previous exam. The pituitary, optic chiasm, corpus callosum, and craniocervical junction have an unremarkable appearance. No mastoid effusion or sinus air-fluid level. IMPRESSION: No acute intracranial findings. There has been interval development of a small area of encephalomalacia in the right occipital lobe suggesting a small remote infarction. Dictated by: Bruno Coello MD 10/04/2019 06:37 Electronically signed by Bruno Coello MD in [place] 10/04/2019 06:37
== END ==
PROVIDERS: PCP Internal Medicine Adolescent Medicine; Visit Provider Physician Assistant
DX: R26.89 Other abnormalities of gait and mobility (principal)
CPT/HCPCS: 70551

== ENCOUNTER 2019-10-14 03:06 | Observation (INO) ==
[2019-10-14 03:41] LABS: Coronavirus 229E Not Detected (NotDetected); Coronavirus NL63 Not Detected (NotDetected); Coronavirus OC43 Not Detected (NotDetected); Coronovirus HKU1,PCR Not Detected (NotDetected)
[2019-10-14 04:15] LABS: Albumin Level 3.8 g/dl (3.5-5.0); Albumin/Globulin Ratio 1.5 (1.1-1.8); Anion Gap 13.4 mEq/L (5-15); Bilirubin,Total 0.2 mg/dl (0.2-1.3); Calcium 10.4 mg/dl (8.4-10.2); Globulin 2.6 g/dL (1.3-3.2); Total Protein,Serum 6.4 g/dl (6.3-8.2)
[2019-10-14 04:43] LABS: Basophils % 0.5 % (0.1-2.0); Eosinophils # 0.1 K/mm3 (0.0-0.4); Eosinophils % 2.3 % (0.1-12.0); Hematocrit 37.1 % (37.0-47.0); Hemoglobin 12.3 g/dL (12.2-16.2); Lymphocytes # 1.2 K/mm3 (0.7-4.5); Lymphocytes % 29.3 % (10-50); Mean Corpuscular HGB Conc 33.2 g/dL (31.8-35.4); Mean Corpuscular Volume 93.4 fl (81-99); Mean Platelet Volume 8.6 fl (7.4-10.4); Monocytes # 0.5 K/mm3 (0.1-1.0); Neutrophils # 2.3 K/mm3 (1.8-7.8); Neutrophils % 55.8 % (37.0-80.0); Platelet Count 151 K/mm3 (142-424); Red Blood Count 3.97 M/mm3 (4.20-5.40); Red Cell Distribution Width 13.6 % (11.5-17.5); White Blood Count 4.2 K/mm3 (4.8-10.8)
--- NOTE | 2019-10-14 04:56 | Emergency Department Note ---
ED Disposition Clinical Impression: Influenza, Acute bronchospasm due to viral infection Disposition: Admitted as Observation Condition on Discharge: Good Referrals: Marc Rodriguez MD [Primary Care Provider] - - Critical Care Critical Care Time: No Attestation: On 10/14/19, the high probability of a clinically significant, sudden or life threatening deterioration of the following system(s) required my full and direct attention, intervention and personal management. The time I documented below is in addition to time spent performing reported procedures but includes the following listed in this critical care notation. Medical Decision Making - Medical Records Medical records reviewed: Yes: I reviewed the patient's medical records. - Romeo Inquiry Pt receiving controlled substance: No Vital Signs: 10/14/19 03:06 10/14/19 03:36 10/14/19 03:48 Temperature 99.0 F 99.0 F Temperature Source Oral Oral Pulse Rate [Right] 73 84 73 Respiratory Rate 18 20 18 Blood Pressure [Right Arm] 112/57 L 119/64 112/57 L Blood Pressure Mean [Right Arm] 75 82 75 Blood Pressure Source [Right Arm] Automatic Cuff Automatic Cuff Automatic Cuff Blood Pressure Position [Right Arm] Supine Supine Sitting 02 Sat by Pulse Oximetry 96 95 96 Oxygen Delivery Method Room Air 10/14/19 04:38 10/14/19 05:30 Temperature 98.8 F Temperature Source Oral Pulse Rate [Right] 94 H 94 H Respiratory Rate 22 18 Blood Pressure [Right Arm] 127/60 108/58 L Blood Pressure Mean [Right Arm] 82 74 Blood Pressure Source [Right Arm] Automatic Cuff Automatic Cuff Blood Pressure Position [Right Arm] Supine Supine 02 Sat by Pulse Oximetry 94 L 96 Oxygen Delivery Method Room Air - Lab Data Lab results reviewed: Yes: I reviewed the patient's lab results. Lab Results 10/14/19 03:30: Chlamy pneumoniae PCR Not detected, Adenovirus (PCR) Not detected, B. pertussis DNA (PCR) Not detected, Coronavirus OC43 (PCR) Not detected, Coronavirus HKU1 (PCR) Not detected, Coronavirus 229E (PCR) Not detected, Coronavirus NL63 (PCR) Not detected, Human Metapneumovir PCR Not detected, Influenza A (H1) PCR Not detected, Influ A (H1N1/09) PCR Detected A, Influenza A (H3) PCR Not detected, Influenza Type A (PCR) Not detected, Influenza Type B (PCR) Not detected, M. pneumoniae (PCR) Not detected, Parainfluenza 1 (PCR) Not detected, Parainfluenza 2 (PCR) Not detected, Parainfluenza 3 (PCR) Not detected, Parainfluenza 4 (PCR) Not detected, RSV (PCR) Not detected, Entero/Rhino (PCR) Not detected 10/14/19 03:30: WBC Cancelled, Corrected WBC Cancelled, RBC Cancelled, Hgb Cancelled, Hct Cancelled, MCV Cancelled, MCH Cancelled, MCHC Cancelled, RDW Cancelled, Plt Count Cancelled, MPV Cancelled, Neut % (Auto) Cancelled, Lymph % (Auto) Cancelled, [place] % (Auto) Cancelled, Eos % (Auto) Cancelled, Baso % (Auto) Cancelled, Neut # (Auto) Cancelled, Lymph # (Auto) Cancelled, [place] # (Auto) Cancelled, Eos # (Auto) Cancelled, Baso # (Auto) Cancelled, ESR Cancelled 10/14/19 03:30: Sodium 140, Potassium 4.4, Chloride 102, Carbon Dioxide 29, Anion Gap 13.4, BUN 16, Creatinine 1.10 H, Estimated Creat Clear 80, Estimated GFR 50 L, Est GFR ( Amer) 60, Glucose 95, Calcium 10.4 H, Total Bilirubin 0.2, AST 32, ALT 16, Alkaline Phosphatase 83, C-Reactive Protein 3.0, Total Protein 6.4, Albumin 3.8, Globulin 2.6, Albumin/Globulin Ratio 1.5 10/14/19 03:30: Lactate 1.6 10/14/19 03:30: WBC 4.2 L, RBC 3.97 L, Hgb 12.3, Hct 37.1, MCV 93.4, MCH 31.0, MCHC 33.2, RDW 13.6, Plt Count 151, MPV 8.6, Neut % (Auto) 55.8, Lymph % (Auto) 29.3, [place] % (Auto) 12.0 H, Eos % (Auto) 2.3, Baso % (Auto) 0.5, Neut # (Auto) 2.3, Lymph # (Auto) 1.2, [place] # (Auto) 0.5, Eos # (Auto) 0.1, Baso # (Auto) 0.0, ESR 45 H Result diagrams: 10/14/19 03:30 10/14/19 03:30 Orders (Tests/Meds): ED MEDICATIONS Generic Name Dose Route Start Last Admin Trade Name Freq PRN Reason Stop Dose Admin Sodium Chloride 1,000 mls @ 999 mls/hr 10/14/19 04:00 10/14/19 03:59 Sod Chlor 0.9% 1000ml Bag IV 10/14/19 05:00 999 mls/hr .Q1H1M JAMES Administration Discontinued Medications Generic Name Dose Route Start Last Admin Trade Name Freq PRN Reason Stop Dose Admin Albuterol/Ipratropium 3 ml 10/14/19 04:26 10/14/19 04:30 Duoneb 3ml Neb IH 10/14/19 04:27 3 ml ONCE ONE Administration Epinephrine 0.5 ml 10/14/19 04:26 10/14/19 04:30 Epinephrine 2.25% Neb 0.5ml Ud IH 10/14/19 04:27 0.5 ml ONCE ONE Administration Furosemide 40 mg 10/14/19 04:46 10/14/19 04:50 Lasix 40mg/4ml Vial IV 10/14/19 04:47 40 mg ONCE ONE Administration Methylprednisolone Sodium Succinate 125 mg 10/14/19 03:58 10/14/19 03:59 Solu-Medrol 125mg/2ml Vial IV 10/14/19 03:59 125 mg ONCE ONE Administration ORDERS Category Date Time Status Chest XR 2 view (NOT portable) [XR chest 2V] Stat Exams 10/14/19 03:57 Taken Brain Natriuretic Peptide Stat Lab 10/14/19 05:08 Ordered Troponin I Q3H Lab 10/14/19 08:00 Ordered Troponin I Q3H Lab 10/14/19 11:00 Ordered Troponin I Stat Lab 10/14/19 03:30 Received Blood Culture Stat Micro 10/14/19 03:30 Received - Radiology Data #1 Image(s): Chest Image Reviewed: Yes I reviewed the patient's radiology image Preliminary Findings: Abnormal - Physician Consults Physician Consulted: oscar Reason -: Admission Resp/SOB HPI - General Chief Complaint: Upper Respiratory Infection Stated Complaint: Cough, Time Seen by Provider: 10/14/19 03:35 Mode of Arrival: Wheelchair Source of Information: Patient, Spouse, Medical Record Limitations: No Limitations Description of Symptoms (Recalled from ER Triage Doc. by RN): Pt states she has a dry hacking cough for 2 days, called her PCP today RX cough syrup with no help. 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 - has no knwon travel or exposure to covid -19 - no heart disease MD Complaint: shortness of breath, cough Onset (ago): day(s) Severity: moderate Consistency/Duration: intermittent Exacerbating factors: coughing Known history of: asthma Associated symptoms: wheezing Treatment prior to arrival: bronchodilator - Related Data Home oxygen amount: none Home Medications Medication Instructions Recorded Confirmed Cholecalciferol (Vitamin D3) 50,000 unit PO DIRECTED 10/09/17 10/14/19 [Vitamin D3 50,000 unit Cap] Donepezil HCl [Aricept 10mg 10 mg PO HS 10/09/17 10/14/19 tablet] Eszopiclone [Lunesta] 3 mg PO HS 10/09/17 10/14/19 Levothyroxine Sodium 100 mcg PO DAILY 10/09/17 10/14/19 [Levothyroxine 88mcg (0.088mg) Tab] Lutein 20 mg PO DAILY 10/09/17 10/14/19 Quetiapine Fumarate [Seroquel] 300 mg PO HS 10/09/17 10/14/19 Sodium Bicarbonate [Sodium 650 mg PO BID 10/09/17 10/14/19 Bicarbonate 650mg Tablet] cycloSPORINE [Restasis] 1 each OP DAILY 10/09/17 10/14/19 lamoTRIgine [Lamictal] 100 mg PO BID 10/09/17 10/14/19 Albuterol Sulfate [Albuterol HFA 2 puffs PO Q6HP PRN 10/19/17 10/14/19 Inhaler] Gabapentin [Gabapentin 100mg Cap] 100 mg PO HS 12/18/17 10/14/19 Memantine HCl [Memantine 5mg 10 mg PO BID 12/18/17 10/14/19 Tablet] Montelukast Sodium [Montelukast 10 mg PO HS 12/18/17 10/14/19 10mg Tab] Duloxetine HCl [Cymbalta 30mg 60 mg PO DAILY 01/26/18 10/14/19 capsule] Duloxetine HCl [Cymbalta 30mg 30 mg PO QPMWM 02/23/18 10/14/19 capsule] Benzonatate 200 mg PO TID 01/19/19 10/14/19 Cyanocobalamin (Vitamin B-12) 1,000 mcg IM WEEKLY 01/19/19 10/14/19 [Cyanocobalamin 1,000mcg/mL Vial] Metoprolol Tartrate [Lopressor 12.5 mg PO BID 01/19/19 10/14/19 25mg tablet] Nystatin [Nystatin Susp 500,000 1 tsp PO QID 01/19/19 10/14/19 Units/5mL Udc] Promethazine/Dextromethorphan 5 ml PO TID 01/19/19 10/14/19 [Promethazine-Dm Solution] Budesonide [Pulmicort 0.25mg/2mL 0.25 mg IH DAILY 02/15/19 10/14/19 respules] Formoterol Fumarate [Perforomist] 20 mcg IH DAILY 02/15/19 10/14/19 Multivit with Iron,Minerals 1 each PO DAILY 10/14/19 10/14/19 [Complete Senior] Allergies Allergy/AdvReac Type Severity Reaction Status Date / Time cephalexin Allergy Intermediate BLISTERS Verified 05/31/19 14:59 IN MOUTH AND THROAT clindamycin Allergy Intermediate Blister Verified 05/31/19 14:59 erythromycin base Allergy Intermediate BLISTERS Verified 05/31/19 14:59 IN MOUTH AND THROAT meropenem Allergy Unknown Verified 05/31/19 14:59 pregabalin [From Lyrica] AdvReac Mild Hallucinati Verified 05/31/19 14:59 ng codeine AdvReac Unknown Verified 05/31/19 14:59 [facility] History - Hepatitis A Screen Drug use history?: No High risk sexual behaviors?: No History of sexually transmitted infection?: No Currently employed?: No Childcare worker?: No Do you have indoor plumbing?: Yes Do you have electricity?: Yes Attestation statement:: This patient has been screened for Hepatitis A risk factors. I have reviewed the patient's past medical history: Yes Medical History: Reports:: Asthma, Coronary Artery Disease, Depression, Gastroesophageal Reflux Disease(GERD), Hyperlipidemia, Hypertension, Renal Disease Denies:: Cancer, Diabetes Mellitus Type 1, Diabetes Mellitus Type 2, Internal Pacemaker, MRSA, Seizures Other Medical History: Reports: Anemia, Arthritis, Cataracts, Fibromyalgia, Glaucoma (bilateral), Hypothyroidism, Sinus Problems, Thyroid Disease. Denies: Blood Transfusion Reaction Comment: Illnesses-hypertension, asthma, frequent pneumonias, GERD, history of kidney stones, history of UTIs, renal disease, anxiety and depression, migraines, seizure disorder, chronic back pain Laterality Cases: Left: Carpal Tunnel Release, Right: Total Hip Replacement, Other, Bilateral: Arthroscopy Knee, Breast Biopsy, Lumpectomy Other Surgeries: Yes: Appendectomy, Cardiac Catheterization, Cholecystectomy, Colonoscopy, Colon Resection, EGD, Hysterectomy-Total, Hysterectomy-Partial, Ureter Stent, Other (colon surgery,right foot). No: Pacemaker Amputation: No Fractures: Yes ((R) humerus, (L) wrist,) Comment: Operations-shoulder replacement, pain pump placement 2005, pain pump generator replacement 2013, left carpal tunnel surgery, bilateral knee arthroscopy, breast biopsy, hysterectomy, right humeral and left wrist surgeries - Social History Smoking Status: Never smoker Tobacco Type: cigarettes Alcohol Intake: never Substance Use Type: denies use Occupational Status: unemployed Housing: house Household Members: spouse - Psychiatric History Pschychiatric History:: Reports:: Depression Family Hx:: Unable to obtain ROS Obtained: Yes All systems reviewed & no additional complaints - Constitutional Constitutional: Denies fever(s) - Eyes Eyes: Denies change in vision - ENT Ears, Nose, Mouth, and Throat: Denies sore throat - Cardiovascular Cardiovascular: Denies chest pain, Reports dyspnea - Respiratory Respiratory: Yes as per HPI, Yes cough, Yes non-productive cough, No coughing up blood - Gastrointestinal Gastrointestingal: Denies: abdominal pain - Genitourinary Female Genitourinary: Denies hematuria - Musculoskeletal Musculoskeletal: Denies joint pain, Denies joint swelling - Integumentary/Breasts Skin/Breast: Denies rash - Neurologic Neurologic: Denies headache(s), Denies seizure-like activity Physical Exam - General General appearance: alert, obese - Head Head exam: normocephalic - Eye Eye exam: Present: PERRL, EOMI. Absent: scleral icterus - ENT ENT exam: Present: mucous membranes moist - Neck Neck exam: Present: trachea midline - Respiratory Respiratory exam: Present: wheezes, prolonged expiratory phase. Absent: respiratory distress - Cardiovascular Cardiovascular exam: Present: regular rate, systolic murmur - Abdominal Exam Abdominal exam: Present: soft - Extremities Exam Extremities exam: Absent: calf tenderness - Neurological Exam Neurological exam: Present: alert, CN II-XII intact - Psychiatric Psychiatric exam: Absent: normal affect - Skin Skin exam: Absent: rash
[2019-10-14 05:06] LABS: Erythrocyte Sedimentation Rate 45 mm/hr (0-30)
--- NOTE | 2019-10-14 08:22 | History & Physical Report ---
*Admission Date: 10/14/19 *Chief complaint: Cough/shortness of air *History of present illness: 63-year-old white female with multiple medical problems who presented to the emergency department with cough, low-grade fever and shortness of air. She was found to have cardiomegaly and increased vascularity on chest x-ray, had influenza A positivity on serologic testing, was admitted to hospital for isolation and further diagnostic testing/wrist revocation for other viral illnesses. She notes that she has been inside the house for the last 2 weeks, notes that she has had no significant fever. [facility] History I have reviewed the patient's past medical history: Yes Medical History: Reports:: Asthma, Coronary Artery Disease, Depression, Gastroesophageal Reflux Disease(GERD), Hyperlipidemia, Hypertension, Renal Disease Denies:: Cancer, Diabetes Mellitus Type 1, Diabetes Mellitus Type 2, Internal Pacemaker, MRSA, Seizures *Have you ever received a pneumonia vaccine?: Yes *Have you received a flu vaccine this season?: Yes Other Medical History: Reports: Anemia, Arthritis, Cataracts, Fibromyalgia, Glaucoma (bilateral), Hypothyroidism, Sinus Problems, Thyroid Disease. Denies: Blood Transfusion Reaction Laterality Cases: Left: Carpal Tunnel Release, Right: Total Hip Replacement, Other, Bilateral: Arthroscopy Knee, Breast Biopsy, Lumpectomy Other Surgeries: Yes: Appendectomy, Cardiac Catheterization, Cholecystectomy, Colonoscopy, Colon Resection, EGD, Hysterectomy-Total, Hysterectomy-Partial, Ureter Stent, Other (colon surgery,right foot). No: Pacemaker Amputation: No Fractures: Yes ((R) humerus, (L) wrist,) - *Social History Educational Level: Completed High School Smoking Status: Never smoker Tobacco Type: cigarettes Alcohol Intake: never Substance Use Type: denies use *Occupational Status:: disabled Housing: house Household Members: significant other *Travel in the last 8 weeks: None - Psychiatric History Pschychiatric History:: Reports:: Depression Family Hx:: Unable to obtain Review of Systems - Review of Systems Review of systems:: pertinent systems reviewed and negative unless documented below Significant cough and congestion. Also complains of sore throat Denies chest pain. Denies GI symptoms. Otherwise 10 point review of systems negative - *Neurologic Denies headache(s), Denies seizure-like activity Meds Home Medications Medication Instructions Recorded Confirmed Type Cholecalciferol (Vitamin D3) 50,000 unit PO DIRECTED 10/09/17 10/14/19 History [Vitamin D3 50,000 unit Cap] Donepezil HCl [Aricept 10mg 10 mg PO HS 10/09/17 10/14/19 History tablet] Eszopiclone [Lunesta] 3 mg PO HS 10/09/17 10/14/19 History Levothyroxine Sodium 100 mcg PO DAILY 10/09/17 10/14/19 History [Levothyroxine 88mcg (0.088mg) Tab] Lutein 20 mg PO DAILY 10/09/17 10/14/19 History Quetiapine Fumarate [Seroquel] 300 mg PO HS 10/09/17 10/14/19 History Sodium Bicarbonate [Sodium 650 mg PO BID 10/09/17 10/14/19 History Bicarbonate 650mg Tablet] cycloSPORINE [Restasis] 1 each OP DAILY 10/09/17 10/14/19 History lamoTRIgine [Lamictal] 100 mg PO BID 10/09/17 10/14/19 History Albuterol Sulfate [Albuterol HFA 2 puffs PO Q6HP PRN 10/19/17 10/14/19 History Inhaler] Gabapentin [Gabapentin 100mg Cap] 100 mg PO HS 12/18/17 10/14/19 History Memantine HCl [Memantine 5mg 10 mg PO BID 12/18/17 10/14/19 History Tablet] Montelukast Sodium [Montelukast 10 mg PO HS 12/18/17 10/14/19 History 10mg Tab] Duloxetine HCl [Cymbalta 30mg 60 mg PO DAILY 01/26/18 10/14/19 History capsule] Duloxetine HCl [Cymbalta 30mg 30 mg PO QPMWM 02/23/18 10/14/19 History capsule] Benzonatate 200 mg PO TID 01/19/19 10/14/19 History Cyanocobalamin (Vitamin B-12) 1,000 mcg IM WEEKLY 01/19/19 10/14/19 History [Cyanocobalamin 1,000mcg/mL Vial] Metoprolol Tartrate [Lopressor 12.5 mg PO BID 01/19/19 10/14/19 History 25mg tablet] Nystatin [Nystatin Susp 500,000 1 tsp PO QID 01/19/19 10/14/19 History Units/5mL Udc] Promethazine/Dextromethorphan 5 ml PO TID 01/19/19 10/14/19 History [Promethazine-Dm Solution] Budesonide [Pulmicort 0.25mg/2mL 0.25 mg IH DAILY 02/15/19 10/14/19 History respules] Formoterol Fumarate [Perforomist] 20 mcg IH DAILY 02/15/19 10/14/19 History Multivit with Iron,Minerals 1 each PO DAILY 10/14/19 10/14/19 History [Complete Senior] Allergies Allergy/AdvReac Type Severity Reaction Status Date / Time cephalexin Allergy Intermediate BLISTERS Verified 05/31/19 14:59 IN MOUTH AND THROAT clindamycin Allergy Intermediate Blister Verified 05/31/19 14:59 erythromycin base Allergy Intermediate BLISTERS Verified 05/31/19 14:59 IN MOUTH AND THROAT meropenem Allergy Unknown Verified 05/31/19 14:59 pregabalin [From Lyrica] AdvReac Mild Hallucinati Verified 05/31/19 14:59 ng codeine AdvReac Unknown Verified 05/31/19 14:59 Exam Vital signs and Labs for Last 24 Hours: Temp Pulse Resp BP Pulse Ox 98.2 F 67 24 125/75 93 L 10/14/19 07:39 10/14/19 07:39 10/14/19 07:39 10/14/19 07:39 10/14/19 07:39 Laboratory Results - last 24 hr 10/14/19 03:30: Chlamy pneumoniae PCR Not detected, Adenovirus (PCR) Not detected, B. pertussis DNA (PCR) Not detected, Coronavirus OC43 (PCR) Not detected, Coronavirus HKU1 (PCR) Not detected, Coronavirus 229E (PCR) Not detected, Coronavirus NL63 (PCR) Not detected, Human Metapneumovir PCR Not detected, Influenza A (H1) PCR Not detected, Influ A (H1N1/09) PCR Detected A, Influenza A (H3) PCR Not detected, Influenza Type A (PCR) Not detected, Influenza Type B (PCR) Not detected, M. pneumoniae (PCR) Not detected, Parainfluenza 1 (PCR) Not detected, Parainfluenza 2 (PCR) Not detected, Parainfluenza 3 (PCR) Not detected, Parainfluenza 4 (PCR) Not detected, RSV (PCR) Not detected, Entero/Rhino (PCR) Not detected 10/14/19 03:30: WBC Cancelled, Corrected WBC Cancelled, RBC Cancelled, Hgb Cancelled, Hct Cancelled, MCV Cancelled, MCH Cancelled, MCHC Cancelled, RDW Cancelled, Plt Count Cancelled, MPV Cancelled, Neut % (Auto) Cancelled, Lymph % (Auto) Cancelled, [place] % (Auto) Cancelled, Eos % (Auto) Cancelled, Baso % (Auto) Cancelled, Neut # (Auto) Cancelled, Lymph # (Auto) Cancelled, [place] # (Auto) Cancelled, Eos # (Auto) Cancelled, Baso # (Auto) Cancelled, ESR Cancelled 10/14/19 03:30: Sodium 140, Potassium 4.4, Chloride 102, Carbon Dioxide 29, Anion Gap 13.4, BUN 16, Creatinine 1.10 H, Estimated Creat Clear 80, Estimated GFR 50 L, Est GFR ( Amer) 60, Glucose 95, Calcium 10.4 H, Total Bilirubin 0.2, AST 32, ALT 16, Alkaline Phosphatase 83, C-Reactive Protein 3.0, Total Protein 6.4, Albumin 3.8, Globulin 2.6, Albumin/Globulin Ratio 1.5 10/14/19 03:30: Lactate 1.6 10/14/19 03:30: WBC 4.2 L, RBC 3.97 L, Hgb 12.3, Hct 37.1, MCV 93.4, MCH 31.0, MCHC 33.2, RDW 13.6, Plt Count 151, MPV 8.6, Neut % (Auto) 55.8, Lymph % (Auto) 29.3, [place] % (Auto) 12.0 H, Eos % (Auto) 2.3, Baso % (Auto) 0.5, Neut # (Auto) 2.3, Lymph # (Auto) 1.2, [place] # (Auto) 0.5, Eos # (Auto) 0.1, Baso # (Auto) 0.0, ESR 45 H 10/14/19 03:30: Troponin I < 0.01 10/14/19 03:30: NT-Pro-B Natriuret Pep 342 H 10/14/19 03:30: Magnesium 1.6 I & O for Last 24 hours: Intake & Output 10/11/19 10/12/19 10/13/19 10/14/19 11:59 11:59 11:59 11:59 Intake Total 1490 / 1490 Output Total 500 / 500 Balance 990 / 990 Weight 180 lb 0.013 oz Narrative: Overall patient is alert. Pleasant. Oriented x3. No JVD. Rhonchi in both lung sarmiento. Good air movement. Heart rate regular. Abdomen soft. No edema or clubbing. Oropharynx has mild pink discoloration but no vesicles. No erythema. No lymphadenitis. No rash noted. Assessment and Plan (1) Acute bronchospasm due to viral infection Current visit: Yes Status: Acute Category: Medical Code(s): J98.01 - Acute bronchospasm; B34.9 - Viral infection, unspecified (2) Influenza Current visit: Yes Status: Acute Category: Medical Code(s): J11.1 - Influenza due to unidentified influenza virus with other respiratory manifestations Patient has low risk for co-vid infection. Plan will be to continue treating s ymptomatically for influenza. Probable discharge tomorrow if oxygenation/ventilation remains stable.
--- NOTE | 2019-10-15 09:09 | Discharge Summary ---
General - General Admission date:: 10/14/19 Discharge date: 10/15/19 HPI HPI: 63-year-old white female with multiple medical problems who presented to the emergency department with cough, low-grade fever and shortness of air. She was found to have cardiomegaly and increased vascularity on chest x-ray, had influenza A positivity on serologic testing, was admitted to hospital for isolation and further diagnostic testing/risk evaluation for other viral illnesses. She notes that she has been inside the house for the last 2 weeks, notes that she has had no significant fever. Hospital Course Hospital Course: Patient was admitted to hospital, influenza titers were positive. Patient did well over the next 24 hours, did not require supplemental oxygen. Labs improved, oral intake improved. Cough was treated fairly successfully. This morning she is eating and drinking, doing her own activities of daily living, does not require supplemental oxygen and is safe for discharge. She will be treated with Tamiflu and cough medicine as an outpatient, encouraged to self isolate given community viral spread. Objective Vital signs: Temp Pulse Resp BP Pulse Ox 97.8 F 62 17 117/58 L 95 10/15/19 07:35 10/15/19 07:35 10/15/19 07:35 10/15/19 07:35 10/15/19 07:35 Narrative: Patient is alert, oriented x3. Pleasant. Talkative. Cough that is minimally productive of yellow sputum. Heart rate regular. Lungs are rhonchorous but good air movement. No JVD, oropharynx clear, ENT exam otherwise clear. Neurologic exam globally weak but no changes over baseline. No rash. Abdomen soft and nontender. DS: Diagnosis - Discharge Diagnosis (1) Acute bronchospasm due to viral infection Status: Acute (2) Influenza Status: Acute Discharge Plan - Patient Discharge Instructions ACTIVITY: Continue current activity DIET: continue same diet Patient Instructions: DI for Viral Upper Respiratory Infection -- Adult, DI for Influenza -- Adult - Follow up Plan Follow up with: Marc Rodriguez MD [Primary Care Provider] - 2 weeks Disposition: Home, Self-Snf Medications: Home Medications Medication Instructions Recorded Confirmed Type Cholecalciferol (Vitamin D3) 50,000 unit PO DIRECTED 10/09/17 10/14/19 History [Vitamin D3 50,000 unit Cap] Eszopiclone [Lunesta] 3 mg PO HS 10/09/17 10/14/19 History Lutein 20 mg PO DAILY 10/09/17 10/14/19 History Quetiapine Fumarate [Seroquel] 300 mg PO HS 10/09/17 10/14/19 History Sodium Bicarbonate [Sodium 650 mg PO BID 10/09/17 10/14/19 History Bicarbonate 650mg Tablet] cycloSPORINE [Restasis] 1 each OP DAILY 10/09/17 10/14/19 History Albuterol Sulfate [Albuterol HFA 2 puffs PO Q6HP PRN 10/19/17 10/14/19 History Inhaler] Gabapentin [Gabapentin 100mg Cap] 100 mg PO HS 12/18/17 10/14/19 History Duloxetine HCl [Cymbalta 30mg 30 mg PO HS 02/23/18 10/14/19 History capsule] Cyanocobalamin (Vitamin B-12) 1,000 mcg IM WEEKLY 01/19/19 10/14/19 History [Cyanocobalamin 1,000mcg/mL Vial] Metoprolol Tartrate [Lopressor 12.5 mg PO BID 01/19/19 10/14/19 History 25mg tablet] Promethazine/Dextromethorphan 5 ml PO Q6HP PRN 01/19/19 10/14/19 History [Promethazine-Dm Solution] Budesonide [Pulmicort 0.25mg/2mL 0.25 mg IH DAILY 02/15/19 10/14/19 History respules] Formoterol Fumarate [Perforomist] 20 mcg IH DAILY 02/15/19 10/14/19 History Donepezil HCl 23 mg PO DAILY 10/14/19 10/14/19 History Duloxetine HCl [Cymbalta] 60 mg PO DAILY 10/14/19 10/14/19 History Hydrocortisone [Cortef] 5 mg PO BID 10/14/19 10/14/19 History Levothyroxine Sodium 100 mcg PO DAILY 10/14/19 10/14/19 History [Levothyroxine 100mcg (0.1MG) Tab] Memantine HCl [Memantine 10mg 10 mg PO BID 10/14/19 10/14/19 History Tablet] Montelukast Sodium [Singulair 10mg 10 mg PO PM 03/13/20 03/13/20 History tablet] Multivit with Iron,Minerals 1 each PO DAILY 10/14/19 10/14/19 History [Complete Senior] lamoTRIgine [Lamotrigine] 100 mg PO BID 10/14/19 10/14/19 History Oseltamivir Phosphate [Tamiflu 75 mg PO DAILY #10 cap 10/15/19 Rx 75mg Capsule] Prescriptions/Medication Reconciliation: New Oseltamivir Phosphate [Tamiflu 75mg Capsule] 75 mg PO DAILY #10 cap Continued Sodium Bicarbonate [Sodium Bicarbonate 650mg Tablet] 650 mg PO BID Quetiapine Fumarate [Seroquel] 300 mg PO HS Lutein 20 mg PO DAILY Eszopiclone [Lunesta] 3 mg PO HS cycloSPORINE [Restasis] 1 each OP DAILY Cholecalciferol (Vitamin D3) [Vitamin D3 50,000 unit Cap] 50,000 unit PO DIRECTED Gabapentin [Gabapentin 100mg Cap] 100 mg PO HS Metoprolol Tartrate [Lopressor 25mg tablet] 12.5 mg PO BID Cyanocobalamin (Vitamin B-12) [Cyanocobalamin 1,000mcg/mL Vial] 1,000 mcg IM WEEKLY Promethazine/Dextromethorphan [Promethazine-Dm Solution] 5 ml PO Q6HP PRN PRN Reason: Cough Formoterol Fumarate [Perforomist] 20 mcg IH DAILY Budesonide [Pulmicort 0.25mg/2mL respules] 0.25 mg IH DAILY Multivit with Iron,Minerals [Complete Senior] 1 each PO DAILY Donepezil HCl 23 mg PO DAILY Memantine HCl [Memantine 10mg Tablet] 10 mg PO BID Levothyroxine Sodium [Levothyroxine 100mcg (0.1MG) Tab] 100 mcg PO DAILY Albuterol Sulfate [Albuterol HFA Inhaler] 2 puffs PO Q6HP PRN PRN Reason: BREATHING Duloxetine HCl [Cymbalta 30mg capsule] 30 mg PO HS lamoTRIgine [Lamotrigine] 100 mg PO BID Duloxetine HCl [Cymbalta] 60 mg PO DAILY Montelukast Sodium [Singulair 10mg tablet] 10 mg PO PM Hydrocortisone [Cortef] 5 mg PO BID - Problem Reconciliation Problems Reviewed?: Yes
== END 2019-10-15 11:24 | disposition home or self-care (01) ==
LOC: ER 03:06 → 2ND 03:06
PROVIDERS: ADMIT Family Medicine; ATTEND Internal Medicine Adolescent Medicine
CPT/HCPCS: 71020; 71046; 80053; 83605; 83735; 83880; 84484; 85025; 85651; 86140; 87040; 87486; 87581; 87633; 87798; 94640; 94761; 96365; 96375; 99285; G0378

== ENCOUNTER → 2019-12-11 10:28 | Outpatient (CLI) | payer MEDICARE, BC, SELFPAY ==
[2019-12-12 17:03] LABS: Covid-19 Nasal PCR Sendout UK Not Detected
== END ==
PROVIDERS: PCP Internal Medicine Adolescent Medicine; Visit Provider Anesthesiology
DX: Z03.818 Encounter for observation for suspected exposure to other biological agents ruled out (principal)
CPT/HCPCS: U0003

== ENCOUNTER 2019-12-13 13:26 | Day surgery (SDC) | payer MEDICARE, BC, SELFPAY ==
[2019-12-13 13:36] VITALS: BP 133/67; PULSE 61; RESP 18; O2SAT 95; BMI 33.3
[2019-12-13 13:54] VITALS: BP 114/74; PULSE 60; RESP 20; O2SAT 100
[2019-12-13 13:55] VITALS: BP 120/74; PULSE 80; RESP 20; O2SAT 98
--- NOTE | 2019-12-13 13:58 | P.PCN_ITS ---
- Procedure Date: 12/13/19 Time: 13:58 Anesthesiologist:: Pebbles Alvarado APRN Complications:: None Pre-procedure Diagnosis:: Degenerative disc disease lumbar spine with lumbar radiculopathy symptoms and postlaminectomy syndrome lumbar spine Post-procedure Diagnosis:: Same Indications for Procedure:: Patient is a pleasant 64-year-old white female who presents today for intrathecal pain pump refill and reprogram. She is currently doing quite well after she has some increased pain due to increased activities. She is recently lost 20 pounds and has recovered from her hip replacement. Patient's Romeo #[id number] reviewed and appropriate. Urine drug screens are appropriate. She is on gabapentin 100 mg 1 p.o. twice daily. Patient currently on a periodic flow of 0.6 mg every 2 hours for total daily dose of 8.28 mg/day we will give her a slight increase today. Physical Exam General: Alert and oriented x3, no acute distress, pleasant and cooperative, [on room air] Lungs: Resps E/U, Symmetrical chest expansion, Eyes: PERRL Musculoskeletal: Flexion and extension of lumbar spine somewhat guarded secondary to pain, deep tendon reflexes normal, strength in upper and lower extremities [5/5], [abnormal gait noted] Neurological: speech clear, cash management coordinator equal, no gross sensory deficits Procedure Details:: Informed consent was obtained and the risk and benefits of the procedure were explained to the patient. The patient was taken to the procedure room where noninvasive monitoring was placed including noninvasive blood pressure cuff and pulse oximeter. Patient's pump was interrogated. The area over the pump was cleansed with chlorhexidine as a cleansing solution. In sterile fashion the pump was accessed with a 22-gauge needle. Approximately 6 mL's were removed of the pump solution and discarded appropriately. The pump was then refilled with 20 mL's of Dilaudid 25 mg/mL and bupivacaine 5 mg/mL. The needle was withdrawn and a bandage was placed over the puncture site. The infusion rate was reprogrammed to 0.72 mg every 2 hours. The patient tolerated the procedure well. Plan and Disposition:: I will see the patient back at her next intrathecal pain pump refill and reprogram she has been instructed to call the office if she has any issues prior to her next appointment. Dr. Kidd has reviewed this note and agrees with this plan of care. This note was dictated using voice recognition software and may contain errors or omissions
[2019-12-13 14:00] VITALS: BP 123/58; PULSE 53; RESP 18; O2SAT 95
== END 2019-12-13 14:03 | disposition home or self-care (01) ==
LOC: SC.PAINP 13:28
PROVIDERS: PCP Internal Medicine Adolescent Medicine; Visit Provider Clinical Nurse Specialist Family Health
DX: M51.16 Intervertebral disc disorders with radiculopathy, lumbar region (principal); M96.1 Postlaminectomy syndrome, not elsewhere classified; Z88.1 Allergy status to other antibiotic agents; J45.909 Unspecified asthma, uncomplicated; Z87.09 Personal history of other diseases of the respiratory system; Z87.448 Personal history of other diseases of urinary system; K21.9 Gastro-esophageal reflux disease without esophagitis; F32.9 Major depressive disorder, single episode, unspecified; F41.9 Anxiety disorder, unspecified; Z96.649 Presence of unspecified artificial hip joint
CPT/HCPCS: 62370

== ENCOUNTER 2020-01-17 13:25 | Day surgery (SDC) | payer MEDICARE, BC, SELFPAY ==
[2020-01-17 13:43] VITALS: BP 130/61; PULSE 52; RESP 18; TEMP 36.7; O2SAT 93; BMI 32.8
[2020-01-17 14:03] VITALS: BP 104/62; BP 105/65; PULSE 54; PULSE 55; RESP 18; O2SAT 96
--- NOTE | 2020-01-17 14:09 | P.PCN_ITS ---
- Procedure Date: 01/17/20 Time: 14:09 Anesthesiologist:: Pebbles Alvarado APRN Complications:: None Pre-procedure Diagnosis:: Degenerative disc disease lumbar spine lumbar radiculopathy and lumbar postlaminectomy syndrome Post-procedure Diagnosis:: Same Indications for Procedure:: Patient is a very pleasant 64-year-old white female who presents today for intrathecal pain pump refill and reprogram. Patient is recently lost 40 pounds and is very healthy-appearing. Patient continuing to do exercises and stretches at home. She is currently on a periodic flow of 0.72 milligrams per 2 hours. She would like a slight increase today. Patient rates her pain today a 5 out of 10 and states that that is her baseline. She denies any side effects to her intrathecal infusion. [facility] #[id number] reviewed and appropriate. Patient is also on gabapentin 100 mg 1 p.o. twice daily. Physical Exam General: Alert and oriented x3, no acute distress, pleasant and cooperative, [on room air] Lungs: Resps E/U, Symmetrical chest expansion, Eyes: PERRL Musculoskeletal: Flexion and extension of lumbar spine somewhat guarded secondary to pain, deep tendon reflexes normal, strength in upper and lower extremities [5/5], [abnormal gait noted] Neurological: speech clear, extension work instructor equal, no gross sensory deficits Procedure Details:: Informed consent was obtained and the risk and benefits of the procedure were explained to the patient. The patient was taken to the procedure room where noninvasive monitoring was placed including noninvasive blood pressure cuff and pulse oximeter. Patient's pump was interrogated. The area over the pump was cleansed with chlorhexidine as a cleansing solution. In sterile fashion the pump was accessed with a 22-gauge needle. Approximately 7.5 mL's were removed of the pump solution and discarded appropriately. The pump was then refilled with 20 mL's of Dilaudid 25 mg/mL and bupivacaine 5 mg/mL. The needle was withdrawn and a bandage was placed over the puncture site. The infusion rate was reprogrammed to 0.8 mg every 2 hours for total daily dose of 9.6 mg/day. The patient tolerated the procedure well. Plan and Disposition:: I will follow-up with the patient and her next intrathecal pain pump refill and reprogram she has been instructed to call the office if she has any issues prior to her next appointment. Dr. Kidd has reviewed this note and agrees with this plan of care. This note was dictated using voice recognition software and may contain errors or omissions
[2020-01-17 14:19] VITALS: BP 109/61; PULSE 56; RESP 20; O2SAT 96
== END 2020-01-17 14:20 | disposition home or self-care (01) ==
LOC: SC.PAINP 13:26
PROVIDERS: PCP Internal Medicine Adolescent Medicine; Visit Provider Clinical Nurse Specialist Family Health
DX: M51.16 Intervertebral disc disorders with radiculopathy, lumbar region (principal); M96.1 Postlaminectomy syndrome, not elsewhere classified; I10 Essential (primary) hypertension; J45.909 Unspecified asthma, uncomplicated; K21.9 Gastro-esophageal reflux disease without esophagitis; N28.9 Disorder of kidney and ureter, unspecified; D64.9 Anemia, unspecified; Z87.39 Personal history of other diseases of the musculoskeletal system and connective tissue; Z90.49 Acquired absence of other specified parts of digestive tract; Z90.710 Acquired absence of both cervix and uterus; Z96.649 Presence of unspecified artificial hip joint; F41.9 Anxiety disorder, unspecified
CPT/HCPCS: 62370

== ENCOUNTER 2020-02-20 14:02 | Day surgery (SDC) | payer MEDICARE, BC, SELFPAY ==
[2020-02-20 14:08] VITALS: BP 128/63; PULSE 65; RESP 18; TEMP 36.3; O2SAT 95; BMI 33.0
[2020-02-20 14:17] VITALS: BP 128/88; PULSE 84; RESP 18; O2SAT 100
[2020-02-20 14:28] VITALS: BP 124/67; PULSE 55; RESP 18; TEMP 36.6; O2SAT 98
[2020-02-20 14:37] VITALS: BP 127/59; PULSE 57; RESP 18; O2SAT 95
--- NOTE | 2020-02-20 14:40 | P.PCN_ITS ---
- Procedure Date: 02/20/20 Time: 14:40 Anesthesiologist:: Makeda Nuno APRN Complications:: None Pre-procedure Diagnosis:: Degenerative disc disease lumbar spine with lumbar radiculopathy symptoms, lumbar postlaminectomy syndrome Post-procedure Diagnosis:: Same Indications for Procedure:: Patient is a pleasant 64-year-old white female who presents today for intrathecal pain pump refill and reprogram. She has been treated for low back pain with lumbar radiculopathy symptoms. She is currently managed with Dilaudid and bupivacaine at 0.8 mg/day. She denies any side effects to the medication. She does rate her pain a 7 out of 10 today and would like an increase in her dose. Her urine drug screens and Romeo's have been appropriate. We will increase her today to see if she gets relief. Most of the patient's pain is in her low back area. Physical exam General: Alert and oriented x3, no acute distress, pleasant and cooperative, [on room air] Lungs: Respirations even and unlabored, symmetrical chest expansion Eyes: PERRL Musculoskeletal: Flexion and extension of lumbar spine somewhat guarded secondary to pain, deep tendon reflexes normal, strength in upper and lower extremities [5/5], [abnormal gait noted] Neurological: Speech clear, bank representative equal, no gross sensory deficit Procedure Details:: Informed consent was obtained and the risk and benefits of the procedure were explained to the patient. The patient was taken to the procedure room where noninvasive monitoring was placed including noninvasive blood pressure cuff and pulse oximeter. Patient's pump was interrogated. The area over the pump was cleansed with chlorhexidine as a cleansing solution. In sterile fashion the pump was accessed with a 22-gauge needle. Approximately 7 Mls of the pump solution was removed and discarded appropriately. The pump was then refilled with 20 mL's of Dilaudid 5 mg/mL bupivacaine 5 mg/mL. The needle was withdrawn and a bandage was placed over the puncture site. The infusion rate was reprogrammed at Dilaudid/bupivacaine at 0.85 mg every 2 hours, with a daily dose of 10.2 mg/day. The patient tolerated well with no complication. Plan and Disposition:: Will see the patient back at her next intrathecal pain pump refill and reprogram. She has been instructed to contact the clinic if she has any co ncerns before next appointment. The patient and I specifically discussed risk factors for COVID19. These risks include, but are not limited to age greater than 60, heart or lung disease, diabetes, immunosuppression, and travel. We also discussed NSAIDs may worsen COVID19 infection or symptoms. Patient should not use NSAIDs to treat COVID19 signs or symptoms. Patient was also informed that any type of corticosteroid of any form (oral or injection) will decrease the patient's immune system response and may increase the likelihood of COVID19 infection [address] symptoms[address] Dr. Kidd has reviewed this note and agrees with this plan of care. This note was dictated using voice recognition software and make contain errors or omissions.
== END 2020-02-20 14:41 | disposition home or self-care (01) ==
LOC: SC.PAINP 14:04
PROVIDERS: PCP Internal Medicine Adolescent Medicine; Visit Provider Clinical Nurse Specialist Family Health
DX: M51.16 Intervertebral disc disorders with radiculopathy, lumbar region (principal); M96.1 Postlaminectomy syndrome, not elsewhere classified; I10 Essential (primary) hypertension; J45.909 Unspecified asthma, uncomplicated; Z87.09 Personal history of other diseases of the respiratory system; N28.9 Disorder of kidney and ureter, unspecified; F41.9 Anxiety disorder, unspecified; F32.9 Major depressive disorder, single episode, unspecified; E06.9 Thyroiditis, unspecified; G43.909 Migraine, unspecified, not intractable, without status migrainosus; Z96.649 Presence of unspecified artificial hip joint; Z90.49 Acquired absence of other specified parts of digestive tract
CPT/HCPCS: 62370

== ENCOUNTER 2020-03-26 13:14 | Day surgery (SDC) | payer MEDICARE, BC, SELFPAY ==
[2020-03-26 13:20] VITALS: BP 107/55; BP 112/61; BP 99/54; PULSE 56; PULSE 58; PULSE 59; RESP 20; TEMP 36.8; O2SAT 92; O2SAT 93; BMI 31.6
--- NOTE | 2020-03-26 13:59 | HMH.PMPROC ---
- Procedure Date: 03/26/20 Time: 13:59 Anesthesiologist:: Pebbles Alvarado APRN Complications:: None Pre-procedure Diagnosis:: Degenerative disc disease lumbar spine with lumbar radiculopathy symptoms and lumbar postlaminectomy syndrome Post-procedure Diagnosis:: Same Indications for Procedure:: Patient is a pleasant 64-year-old white female who presents today for intrathecal pain pump refill and reprogram. Patient is being treated for pain secondary to lumbar postlaminectomy syndrome and radiculopathy symptoms. Patient is on a Dilaudid and bupivacaine pump of 0.85 mg every 2 hours. Patient Romeo #[id number] reviewed and appropriate. She is also on gabapentin 100 mg 1 p.o. twice daily. She denies side effects from medication. Patient would like a slight increase today. Physical Exam General: Alert and oriented x3, no acute distress, pleasant and cooperative, [on room air] Lungs: Resps E/U, Symmetrical chest expansion, Eyes: PERRL Musculoskeletal: Flexion and extension of lumbar spine somewhat guarded secondary to pain, deep tendon reflexes normal, strength in upper and lower extremities [5/5], [abnormal gait noted] Neurological: speech clear, insurance licensing supervisor equal, no gross sensory deficits Procedure Details:: Informed consent was obtained and the risk and benefits of the procedure were explained to the patient. The patient was taken to the procedure room where noninvasive monitoring was placed including noninvasive blood pressure cuff and pulse oximeter. Patient's pump was interrogated. The area over the pump was cleansed with chlorhexidine as a cleansing solution. In sterile fashion the pump was accessed with a 22-gauge needle. Approximately 6 mL's were removed of the pump solution and discarded appropriately. The pump was then refilled with 20 mL's of Dilaudid 25 mg/mL and bupivacaine 5 mg/mL. The needle was withdrawn and a bandage was placed over the puncture site. The infusion rate was reprogrammed to 0.8 7 mg every 2 hours. The patient tolerated the procedure well. Plan and Disposition:: We will see the patient and her next intrathecal pain pump refill and reprogram. We will continue her gabapentin 100 mg 1 p.o. twice daily. She has been instructed to call the office if she has any issues prior to her next appointment. Dr. Kidd has reviewed this note and agrees with this plan of care. This note was dictated using voice recognition software and may contain errors or omissions
[2020-03-26 14:05] VITALS: BP 119/56; PULSE 61; RESP 18; O2SAT 92
== END 2020-03-26 14:06 | disposition home or self-care (01) ==
PROVIDERS: PCP Internal Medicine Adolescent Medicine; Visit Provider Clinical Nurse Specialist Family Health
DX: M51.16 Intervertebral disc disorders with radiculopathy, lumbar region (principal); M96.1 Postlaminectomy syndrome, not elsewhere classified; I10 Essential (primary) hypertension; J45.909 Unspecified asthma, uncomplicated; E03.9 Hypothyroidism, unspecified; Z90.49 Acquired absence of other specified parts of digestive tract; Z87.39 Personal history of other diseases of the musculoskeletal system and connective tissue; Z96.649 Presence of unspecified artificial hip joint; Z90.710 Acquired absence of both cervix and uterus; Z88.1 Allergy status to other antibiotic agents; Z88.8 Allergy status to other drugs, medicaments and biological substances; Z79.899 Other long term (current) drug therapy
CPT/HCPCS: 62370

== ENCOUNTER 2020-05-03 08:42 | Day surgery (SDC) | payer MEDICARE, BC, SELFPAY ==
[2020-05-03 08:40] VITALS: BP 98/82; PULSE 59; RESP 20; TEMP 36.4; O2SAT 98; BMI 31.5
[2020-05-03 08:55] VITALS: BP 100/65; PULSE 59; RESP 20; O2SAT 97
[2020-05-03 09:00] VITALS: BP 103/62; PULSE 60; RESP 20; O2SAT 97
--- NOTE | 2020-05-03 09:12 | HMH.PMPROC ---
- Procedure Date: 05/03/20 Time: 09:12 Anesthesiologist:: Makeda Nuno APRN Complications:: None Pre-procedure Diagnosis:: Degenerative disc disease lumbar spine with lumbar radiculopathy symptoms Post-procedure Diagnosis:: Same Indications for Procedure:: Patient is a pleasant 64-year old white female who presents today for intrathecal pain pump refill and reprogram. She has been treated for chronic low back pain with lumbar radiculopathy symptoms. Patient says that she is doing well with her intrathecal therapy at this time. She denies any side effects to the medications. Her Romeo [id number] has been reviewed and is appropriate. Her urine drug screens have been appropriate. Patient does take gabapentin 100 mg 1 tablet p.o. twice daily. She is complaining, however, of pain to her pump site. She says that she has sensitivity to the area with inability to lay on her back and sensitivity to touch at the incision site. Her incision is fully healed with no redness, drainage, or edema noted to the area. She and I did discuss Lidoderm patches to the area for relief. She would like me to order the patches to see if this helps. She does rate her pain a 6 out of 10 today. VITAL SIGNS: Within normal limits. GENERAL: No acute distress, non-toxic appearance. HEAD: Normal with no signs of head trauma. EYES: PERRLA, EOMI, conjunctiva normal, no discharge. EARS: Hearing grossly intact. NOSE: Normal. THROAT: Oropharynx is normal. NECK: Normal range of motion, no tenderness, supple, no lymphadenopathy, No adenopathy, no JVD. CHEST: Clear breath sounds bilaterally. CARDIAC: Regular rate and rhythm. S1 and S2, without murmurs, gallops, or rubs. VASCULAR: No Edema. Peripheral pulses normal and equal in all extremities. ABDOMEN: Normal and soft with no tenderness, no masses or pulsatile masses. GASTROINTESTINAL: Bowel sounds normal GENITOURINARY: Normal, No tenderness LYMPATHTIC: No lymphadenopathy noted. MUSCULOSKELETAL: Good range of motion of all major joints. Extremities without clubbing, cyanosis or edema. NEUROLOGICAL: Alert and oriented x 3. No focal sensory or strength deficits. Speech normal. Follows commands appropriately. PSYCHIATRIC: Normal Affect, judgement and mood. SKIN: Normal appearance with no rashes or lesions. Procedure Details:: Informed consent was obtained and the risk and benefits of the procedure were explained to the patient. The patient was taken to the procedure room where noninvasive monitoring was placed including noninvasive blood pressure cuff and pulse oximeter. Patient's pump was interrogated. The area over the pump was cleansed with chlorhexidine as a cleansing solution. In sterile fashion the pump was accessed with a 22-gauge needle. Approximately 4.5 mls of the pump solution was removed and discarded appropriately. The pump was then refilled with 20 mL's of Dilaudid 25 mg/mL bupivacaine 5 mg/mL. The needle was withdrawn and a bandage was placed over the puncture site. The infusion rate was reprogrammed at Dilaudid 10.4 mg/day and bupivacaine 2.08 mg/day. The patient tolerated well with no complication. Plan and Disposition:: We will order the patient Lidoderm patches topically every 12 hours. We will see her back in clinic at her next intrathecal pain pump refill and reprogram. The patient and I specifically discussed risk factors for COVID19. These risks include, but are not limited to age greater than 60, heart or lung disease, diabetes, immunosuppression, and travel. We also discussed NSAIDs may worsen COVID19 infection or symptoms. Patient should not use NSAIDs to treat COVID19 signs or symptoms. Patient was also informed that any type of corticosteroid of any form (oral or injection) will decrease the patient's immune system response and may increase the likelihood of COVID19 infection and symptoms[address] Dr. Kidd has reviewed this note and agrees with this plan of ca
[2020-05-03 09:15] VITALS: BP 103/63; PULSE 60; RESP 18; O2SAT 97
== END 2020-05-03 09:15 | disposition home or self-care (01) ==
LOC: SC.PAINP 08:43
PROVIDERS: PCP Internal Medicine Adolescent Medicine; Visit Provider Clinical Nurse Specialist Family Health
DX: M51.16 Intervertebral disc disorders with radiculopathy, lumbar region (principal); J45.909 Unspecified asthma, uncomplicated; E03.9 Hypothyroidism, unspecified; F41.9 Anxiety disorder, unspecified; F32.9 Major depressive disorder, single episode, unspecified; Z87.39 Personal history of other diseases of the musculoskeletal system and connective tissue; Z90.49 Acquired absence of other specified parts of digestive tract
CPT/HCPCS: 62370

== ENCOUNTER 2020-06-11 14:24 | Day surgery (SDC) | payer MEDICARE, BC, SELFPAY ==
[2020-06-11 14:36] VITALS: BP 126/66; PULSE 61; RESP 18; TEMP 36.3; O2SAT 96; BMI 30.4
[2020-06-11 14:59] VITALS: BP 118/70; PULSE 56; RESP 18; O2SAT 95
[2020-06-11 15:00] VITALS: BP 125/74; PULSE 61; RESP 20; O2SAT 95
--- NOTE | 2020-06-11 15:04 | P.PCN_ITS ---
- Procedure Date: 06/11/20 Time: 15:04 Anesthesiologist:: Pebbles Alvarado APRN Complications:: None Pre-procedure Diagnosis:: Degenerative disc disease lumbar spine lumbar radiculopathy Post-procedure Diagnosis:: Same Indications for Procedure:: Patient is a pleasant 64-year-old white female who presents today for intrathecal pain pump refill and reprogram. Patient is being treated for chronic low back pain. She denies any side effects to her medication other than constipation. 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 She rates her pain today a 6 out of 10. [facility] reviewed and appropriate. [facility] #[id number] patient is also moving forward with an MRI of her automotive collision repair instructor. Patient and I discussed MRI safety and contacting [facility]. We will make sure that our office does this. Procedure Details:: Informed consent was obtained and the risk and benefits of the procedure were explained to the patient. The patient was taken to the procedure room where noninvasive monitoring was placed including noninvasive blood pressure cuff and pulse oximeter. Patient's pump was interrogated. The area over the pump was cleansed with chlorhexidine as a cleansing solution. In sterile fashion the pump was accessed with a 22-gauge needle. Approximately 4 mL's were removed of the pump solution and discarded appropriately. The pump was then refilled with 20 mL's of Dilaudid 25 mg per mill and bupivacaine 5 mg/mL. The needle was withdrawn and a bandage was placed over the puncture site. The infusion rate was reprogrammed to continue at 10.4 mg/day of Dilaudid and 2.08 mg a day bupivacaine. The patient tolerated the procedure well. Plan and Disposition:: This time we will make any changes due to her constipation. If patient needs a increase she is to let our office know. If not I will see her at her next intrathecal pain pump refill and reprogram. Dr. Kidd has reviewed this note and agrees with this plan of care. This note was dictated using voice recognition software and may contain errors or omissions
[2020-06-11 15:17] VITALS: BP 123/62; PULSE 52; RESP 18; TEMP 36.3; O2SAT 96
== END 2020-06-11 15:10 | disposition home or self-care (01) ==
LOC: SC.PAINP 14:25
PROVIDERS: PCP Internal Medicine Adolescent Medicine; Visit Provider Clinical Nurse Specialist Family Health
DX: M51.16 Intervertebral disc disorders with radiculopathy, lumbar region (principal); Z45.1 Encounter for adjustment and management of infusion pump; I10 Essential (primary) hypertension; E03.9 Hypothyroidism, unspecified; Z82.49 Family history of ischemic heart disease and other diseases of the circulatory system; E78.5 Hyperlipidemia, unspecified; J45.909 Unspecified asthma, uncomplicated; K21.9 Gastro-esophageal reflux disease without esophagitis; Z90.49 Acquired absence of other specified parts of digestive tract; F41.9 Anxiety disorder, unspecified; F32.9 Major depressive disorder, single episode, unspecified; Z87.39 Personal history of other diseases of the musculoskeletal system and connective tissue
CPT/HCPCS: 95991

== ENCOUNTER 2020-07-09 14:30 | Day surgery (SDC) | payer MEDICARE, BC, SELFPAY ==
[2020-07-09 14:46] VITALS: BP 136/70; PULSE 63; RESP 18; TEMP 36.4; O2SAT 98; BMI 30.4
[2020-07-09 15:07] VITALS: BP 142/78; PULSE 74; RESP 18; O2SAT 98
[2020-07-09 15:08] VITALS: BP 119/74; PULSE 72; RESP 18; O2SAT 96
--- NOTE | 2020-07-09 15:14 | P.PCN_ITS ---
- Procedure Date: 07/09/20 Time: 15:14 Anesthesiologist:: Pebbles Alvarado APRN Complications:: None Pre-procedure Diagnosis:: Degenerative disc disease lumbar spine lumbar radiculopathy Post-procedure Diagnosis:: Same Indications for Procedure:: Patient is a pleasant 64-year-old white female who presents today for intrathecal pain pump refill and reprogram. She is being treated for chronic lower back pain. She denies side effects from medication other than constipation. She is currently on Movantik from her hot dip plater. She is moving forward with an MRI for her hot dip plater. She understands about MRI safety with her flow Jewel pump. We will spread out her boluses to see if this helps with some of her constipation. Physical Exam General: Alert and oriented x3, no acute distress, pleasant and cooperative, [on room air] Lungs: Resps E/U, Symmetrical chest expansion, Eyes: PERRL Musculoskeletal: Flexion and extension of lumbar spine somewhat guarded seconda ry to pain, deep tendon reflexes normal, strength in upper and lower extremities [5/5], [abnormal gait noted] Neurological: speech clear, analog ic design architect equal, no gross sensory deficits Procedure Details:: Informed consent was obtained and the risk and benefits of the procedure were explained to the patient. The patient was taken to the procedure room where noninvasive monitoring was placed including noninvasive blood pressure cuff and pulse oximeter. Patient's pump was interrogated. The area over the pump was cleansed with chlorhexidine as a cleansing solution. In sterile fashion the pump was accessed with a 22-gauge needle. Approximately 8 mL's were removed of the pump solution and discarded appropriately. The pump was then refilled with 20 mL's of Dilaudid 25 mg/mL and bupivacaine 5 mg/mL. The needle was withdrawn and a bandage was placed over the puncture site. The infusion rate was reprogrammed to 1.7 mg every 4 hours. This does not change her daily dose. The patient tolerated the procedure well. Plan and Disposition:: We will see the patient back at her next intrathecal pain pump refill and reprogram she has been instructed to call the office if she has any issues prior to her next appointment. Dr. Kidd has reviewed this note and agrees with this plan of care. This note was dictated using voice recognition software and may contain errors or omissions
[2020-07-09 15:28] VITALS: BP 129/60; PULSE 62; RESP 18; O2SAT 98
== END 2020-07-09 15:30 | disposition home or self-care (01) ==
LOC: SC.PAINP 14:31
PROVIDERS: PCP Internal Medicine Adolescent Medicine; Visit Provider Clinical Nurse Specialist Family Health
DX: M51.16 Intervertebral disc disorders with radiculopathy, lumbar region (principal); I10 Essential (primary) hypertension; E03.9 Hypothyroidism, unspecified; J45.909 Unspecified asthma, uncomplicated; F41.9 Anxiety disorder, unspecified; F32.9 Major depressive disorder, single episode, unspecified; N28.9 Disorder of kidney and ureter, unspecified; Z90.49 Acquired absence of other specified parts of digestive tract
CPT/HCPCS: 95991

== ENCOUNTER 2020-08-13 12:48 | Day surgery (SDC) | payer MEDICARE, BC, SELFPAY ==
[2020-08-13 12:59] VITALS: BP 133/68; PULSE 55; RESP 10; TEMP 36.7; O2SAT 98; BMI 30.5
[2020-08-13 13:40] VITALS: BP 144/78; PULSE 60; RESP 18; O2SAT 95
--- NOTE | 2020-08-13 13:41 | P.PCN_ITS ---
- Procedure Date: 08/13/20 Time: 13:55 Anesthesiologist:: Pebbles Alvarado APRN Complications:: None Pre-procedure Diagnosis:: Disc disease lumbar spine lumbar radiculopathy, postlaminectomy syndrome lumbar spine Post-procedure Diagnosis:: Same Indications for Procedure:: Patient is a pleasant 64-year-old white female who presents today for intrathecal pain pump refill and reprogram. Patient is currently being treated for low back pain. She denies side effects from medication other than constipation. She is currently on Movantik. Patient's boluses were changed around last time to see if this helps with her constipation. [facility] #[id number] reviewed and appropriate. Patient rates her pain an 8 out of 10 states that she is not doing very well this time we made some changes to her bolus that she would like to be changed back to constant flow. We will move forward with this today. Procedure Details:: Informed consent was obtained and the risk and benefits of the procedure were explained to the patient. The patient was taken to the procedure room where noninvasive monitoring was placed including noninvasive blood pressure cuff and pulse oximeter. Patient's pump was interrogated. The area over the pump was cleansed with chlorhexidine as a cleansing solution. In sterile fashion the pump was accessed with a 22-gauge needle. Approximately 6 mL's were removed of the pump solution and discarded appropriately. The pump was then refilled with 20 mL's of Dilaudid 25 mg/mL and bupivacaine 5 mg/mL. The needle was withdrawn and a bandage was placed over the puncture site. The infusion rate was reprogrammed to 10.75 mg/day. She was given a 1 mg bolus while in the office to see if this will help with her pain. The patient tolerated the procedure well. Plan and Disposition:: We will see the patient back at her next intrathecal pain pump refill and reprogram if she needs any adjustments prior to this she is to call our office. Dr. Kidd has reviewed this note and agrees with this plan of care. This note was dictated using voice recognition software and may contain errors or omissions
[2020-08-13 13:44] VITALS: BP 146/89; PULSE 68; RESP 18; O2SAT 95
[2020-08-13 13:53] VITALS: BP 133/68; PULSE 63; RESP 18; TEMP 36.7; O2SAT 98
== END 2020-08-13 14:09 | disposition home or self-care (01) ==
LOC: SC.PAINP 12:50
PROVIDERS: PCP Internal Medicine Adolescent Medicine; Visit Provider Clinical Nurse Specialist Family Health
DX: M51.16 Intervertebral disc disorders with radiculopathy, lumbar region (principal); M96.1 Postlaminectomy syndrome, not elsewhere classified; Z45.1 Encounter for adjustment and management of infusion pump
CPT/HCPCS: 62370

== ENCOUNTER 2020-08-17 10:40 | Day surgery (SDC) | payer MEDICARE, BC, SELFPAY ==
[2020-08-17 11:39] VITALS: BP 113/61; PULSE 71; RESP 18; TEMP 35.9; O2SAT 97; BMI 30.7
--- NOTE | 2020-08-17 11:42 | HMH.PMPROC ---
- Procedure Date: 08/17/20 Time: 11:42 Anesthesiologist:: Sagar Kidd MD Complications:: None Pre-procedure Diagnosis:: Degenerative disc disease of lumbar spine with lumbar radiculopathy symptoms and postlaminectomy syndrome lumbar spine Post-procedure Diagnosis:: Same Indications for Procedure:: Patient pleasant 64-year-old white female who we are treating for low back pain with lumbar radiculopathy symptoms. She is not doing well with her intrathecal pain pump. She was changed back from periodic flow to constant flow. She has intrathecal Dilaudid 25 mg/mL and bupivacaine 5 mg per male currently going at 10.75 mg/day. We will do an intrathecal catheter dye study and pump study to assess patency of her intrathecal catheter and proper placement with proper functioning of her intrathecal pain pump. Procedure Details:: Intrathecal catheter dye study and pump study Informed consent was obtained and the risk and benefits of the procedure with explained to the patient. The patient was taken to the procedure room. The area of the pump was prepped using ChloraPrep. A 25-gauge needle was inserted into the side-port. We were able to pull CSF and medication through the intrathecal catheter. We did inject dye and follow the catheter with the tip at the L1 vertebral body. There was good spread of dye throughout the intrathecal space. The catheter was patent and in proper position. We can assume proper functioning of the intrathecal pain pump. We will give her an intrathecal bolus of 1 mg to see if this gives her relief of her pain symptoms. We checked on the patient approximately an hour after receiving the bolus she got very little benefit. It is thought that she may benefit from changing her intrathecal medication out from Dilaudid to fentanyl. We will change her to fentanyl 500 mcg/mL and start her at 100 mcg/day. We will order this medication and change her over in the next coming weeks. Plan and Disposition:: We will follow-up with her in the next couple weeks. We will change her medication to intrathecal fentanyl 500 mcg per mill start at 100 mcg/day.
[2020-08-17 11:47] VITALS: BP 118/78; PULSE 78; RESP 18; O2SAT 98
[2020-08-17 11:48] VITALS: BP 119/79; PULSE 79; RESP 18; O2SAT 98
[2020-08-17 13:12] VITALS: BP 124/64; PULSE 55; RESP 18; TEMP 35.9; O2SAT 97
== END 2020-08-17 11:55 | disposition home or self-care (01) ==
LOC: SC.PAINP 10:42
PROVIDERS: PCP Internal Medicine Adolescent Medicine; Visit Provider Anesthesiology
DX: M51.16 Intervertebral disc disorders with radiculopathy, lumbar region (principal); M96.1 Postlaminectomy syndrome, not elsewhere classified; Z45.1 Encounter for adjustment and management of infusion pump; I10 Essential (primary) hypertension; N18.9 Chronic kidney disease, unspecified; E03.9 Hypothyroidism, unspecified; F41.9 Anxiety disorder, unspecified; F32.9 Major depressive disorder, single episode, unspecified; Z88.1 Allergy status to other antibiotic agents; Z88.6 Allergy status to analgesic agent; Z88.8 Allergy status to other drugs, medicaments and biological substances; Z79.899 Other long term (current) drug therapy
CPT/HCPCS: 61070; C1772; Q9966

== ENCOUNTER 2020-08-24 09:09 | Day surgery (SDC) | payer MEDICARE, BC, SELFPAY ==
[2020-08-24 09:17] VITALS: BP 143/53; PULSE 67; RESP 18; TEMP 36.4; BMI 30.7
[2020-08-24 09:30] VITALS: BP 117/51; PULSE 63; RESP 18; O2SAT 96; BMI 30.7
[2020-08-24 09:37] VITALS: BP 118/57; PULSE 76; RESP 18; O2SAT 97
[2020-08-24 09:38] VITALS: BP 119/52; PULSE 70; RESP 18; O2SAT 98
[2020-08-24 10:42] VITALS: BP 129/69; PULSE 66; RESP 20; O2SAT 98
--- NOTE | 2020-08-24 10:46 | HMH.PMPROC ---
- Procedure Date: 08/24/20 Time: 10:46 Anesthesiologist:: Sagar Kidd MD Complications:: None Pre-procedure Diagnosis:: Lumbar spine with lumbar radiculopathy symptoms and postlaminectomy syndrome lumbar spine with increased pain despite intrathecal Dilaudid pain pump infusion Post-procedure Diagnosis:: Same Indications for Procedure:: Patient is a pleasant 64-year-old white female who we are treating for low back pain with lumbar radiculopathy symptoms. She is not doing well with her current intrathecal Dilaudid infusion. She is having some increased pain. We did do an intrathecal catheter dye study and her catheter is patent and in proper position. We will refill her pump today and switch her over to intrathecal fentanyl to see if this gives her better pain relief of her pain symptoms. Her Romeo and urine drug screen are all appropriate. She does have an antalgic gait. Motor strength of the lower extremities is 5/5. There is no gross sensory deficit. We will refill her with intrathecal fentanyl 500 mcg/mL and started at 100 mcg/day. Procedure Details:: Pain pump refill informed consent was obtained and the risks and benefits of the procedure was explained to the patient. The patient was taken to the procedure room. The pump was interrogated. The area over the pump was prepped using ChloraPrep. The pump was accessed with a 22-gauge needle. Approximately 15 mL's of the intrathecal solution was withdrawn and discarded. The pump was then refilled with 20 mL's of intrathecal nail 500 mcg/mL. It is a double catheter aspiration at the catheter access port. After this, the pump was interrogated and the infusion was at 100 mcg/day. The patient tolerated the procedure well with no complication. Plan and Disposition:: We will follow-up with the patient in 1 week. We will reevaluate her symptoms at that time. We will make adjustments in her intrathecal infusion if needed.
== END 2020-08-24 10:43 | disposition home or self-care (01) ==
LOC: SC.PAINP 09:11
PROVIDERS: PCP Internal Medicine Adolescent Medicine; Visit Provider Anesthesiology
DX: M51.16 Intervertebral disc disorders with radiculopathy, lumbar region (principal); M96.1 Postlaminectomy syndrome, not elsewhere classified; I12.9 Hypertensive chronic kidney disease with stage 1 through stage 4 chronic kidney disease, or unspecified chronic kidney disease; N18.9 Chronic kidney disease, unspecified; E03.9 Hypothyroidism, unspecified; F41.9 Anxiety disorder, unspecified; F32.9 Major depressive disorder, single episode, unspecified; R56.9 Unspecified convulsions; Z90.49 Acquired absence of other specified parts of digestive tract; Z96.649 Presence of unspecified artificial hip joint; Z88.6 Allergy status to analgesic agent; Z88.1 Allergy status to other antibiotic agents
CPT/HCPCS: 62370; C1772

== ENCOUNTER → 2020-08-30 09:57 | Outpatient (POV) | payer MEDICARE, BC, SELFPAY ==
[2020-08-30 10:20] VITALS: BP 110/74; PULSE 71; RESP 18; TEMP 36.8; O2SAT 99; BMI 30.7
--- NOTE | 2020-08-30 10:34 | HMH.PMPROC ---
- Procedure Date: 08/30/20 Time: 10:34 Anesthesiologist:: Pebbles Alvarado APRN Complications:: None Pre-procedure Diagnosis:: Degenerative disc disease lumbar spine lumbar radiculopathy, postlaminectomy syndrome Post-procedure Diagnosis:: Same Indications for Procedure:: Patient is a 64-year-old white female who presents today for follow-up after intrathecal pain pump medication change. She was started on 100 mcg of fentanyl. Patient rates of a pain a 8 out of 10. She denies side effects to however she states she is not getting adequate pain relief. Patient was previously on a periodic flow. We will switch her back to periodic flow today. Patient was given a 25 mcg bolus in office she got minimal relief. She did not have any side effects post bolus. Procedure Details:: Informed consent was obtained and the risk and benefits of the procedure were explained to the patient. The patient was taken to the procedure room where noninvasive monitoring was placed including noninvasive blood pressure cuff and pulse oximeter. Patient's pump was interrogated and reprogrammed. The infusion rate was set at a 50 mcg basal dose with a 25 mcg bolus every 4 hours for total daily dose of 200 mcg/day. The patient tolerated the procedure well. Plan and Disposition:: We will see the patient back in 2 weeks reassess her symptoms at that time and make adjustments if necessary. She has been instructed to call the office if she has any issues prior to her next appointment. Dr. Kidd has reviewed this note and agrees with this plan of care. This note was dictated using voice recognition software and may contain errors or omissions
== END ==
PROVIDERS: PCP Internal Medicine Adolescent Medicine; Visit Provider Clinical Nurse Specialist Family Health
DX: M51.16 Intervertebral disc disorders with radiculopathy, lumbar region (principal); M96.1 Postlaminectomy syndrome, not elsewhere classified
CPT/HCPCS: 62368

== ENCOUNTER → 2020-09-18 11:09 | Outpatient (POV) | payer MEDICARE, BC, SELFPAY ==
--- NOTE | 2020-09-18 11:35 | P.PCN_ITS ---
- Procedure Date: 09/18/20 Time: 11:35 Anesthesiologist:: Pebbles Alvarado APRN Complications:: None Pre-procedure Diagnosis:: Degenerative disc disease lumbar spine lumbar radiculopathy postlaminectomy syndrome lumbar spine, back pain Post-procedure Diagnosis:: Same Indications for Procedure:: Patient is pleasant 64-year-old white female presents today for intrathecal pain pump adjustment. Since her change to fentanyl she has had relief of her constipation symptomology. Overall doing well no side effects she is on 200 mcg/day she would like an increase today. Patient's rating her pain a 6 out of 10. Patient recently had a retinal detachment and repair surgery. Procedure Details:: Informed consent was obtained and the risk and benefits of the procedure were explained to the patient. The patient was taken to the procedure room where noninvasive monitoring was placed including noninvasive blood pressure cuff and pulse oximeter. Patient's pump was interrogated and reprogrammed. The infusion rate was left at a 50 mcg basal rate and her 25 mcg bolus was will be spread out throughout the day over 10 periods for total daily dose of 300 mcg. The patient tolerated the procedure well. Plan and Disposition:: We will see the patient back at her next intrathecal pain pump refill and reprogram she has been instructed to call office if she has any issues prior to her next appointment. Dr. Kidd has reviewed this note and agrees with this plan of care. This note was dictated using voice recognition software and may co ntain errors or omissions
[2020-09-18 11:42] VITALS: BP 128/88; PULSE 74; RESP 18; TEMP 36.8; O2SAT 98; BMI 30.5
== END ==
PROVIDERS: PCP Internal Medicine Adolescent Medicine; Visit Provider Clinical Nurse Specialist Family Health
DX: M51.16 Intervertebral disc disorders with radiculopathy, lumbar region (principal); M96.1 Postlaminectomy syndrome, not elsewhere classified; Z45.1 Encounter for adjustment and management of infusion pump; Z88.6 Allergy status to analgesic agent; Z88.1 Allergy status to other antibiotic agents; Z88.8 Allergy status to other drugs, medicaments and biological substances; Z79.899 Other long term (current) drug therapy
CPT/HCPCS: 62368

== ENCOUNTER 2020-10-01 13:54 | Day surgery (SDC) | payer MEDICARE, BC, SELFPAY ==
[2020-10-01 14:08] VITALS: BP 135/68; PULSE 61; RESP 20; TEMP 36.7; O2SAT 98; BMI 31.0
[2020-10-01 14:34] VITALS: BP 121/66; PULSE 61; RESP 18; O2SAT 98
[2020-10-01 14:42] VITALS: BP 125/68; PULSE 61; RESP 18; O2SAT 99
--- NOTE | 2020-10-01 14:45 | HMH.PMPROC ---
- Procedure Date: 10/01/20 Time: 14:45 Anesthesiologist:: Pebbles Alvarado APRN Complications:: None Pre-procedure Diagnosis:: Degenerative disc disease lumbar spine lumbar radiculopathy, postlaminectomy syndrome, back pain Post-procedure Diagnosis:: Same Indications for Procedure:: Patient is a pleasant 64-year-old white female who presents today for intrathecal pain pump refill and reprogram. Patient is currently on a periodic flow with a 50 mcg basal rate with 25 mcg boluses spread throughout the day at 10 periods. She had a total daily dose of 300 mcg of fentanyl. She rates her pain a 5 out of 10 would like a slight increase we will increase her concentration today. Patient denies side effects to her medication. Procedure Details:: informed consent was obtained and the risk and benefits of the procedure were explained to the patient. The patient was taken to the procedure room where noninvasive monitoring was placed including noninvasive blood pressure cuff and pulse oximeter. Patient's pump was interrogated. The area over the pump was cleansed with chlorhexidine as a cleansing solution. In sterile fashion the pump was accessed with a 22-gauge needle. Approximately 3 mL's were removed of the pump solution and discarded appropriately. The pump was then refilled with 20 mL's of fentanyl 2,000 mcg/mL. The needle was withdrawn and a bandage was placed over the puncture site. The infusion rate was reprogrammed to 350 mcg/day. The patient tolerated the procedure well. Plan and Disposition:: I will see the patient back in upper back to basal rate of 50 mcg/day with 25 mcg boluses 12 times a day. I will follow-up with the patient at her next intrathecal pain pump refill and reprogram she has been instructed to call the office if she has any issues prior to her next appointment. Dr. Kidd has reviewed this note and agrees with this plan of care. This note was dictated using voice recognition software and may contain errors or omissions
[2020-10-01 14:56] VITALS: BP 137/53; PULSE 54; RESP 20; O2SAT 98
== END 2020-10-01 14:57 | disposition home or self-care (01) ==
LOC: SC.PAINP 13:57
PROVIDERS: PCP Internal Medicine Adolescent Medicine; Visit Provider Clinical Nurse Specialist Family Health
DX: M51.16 Intervertebral disc disorders with radiculopathy, lumbar region (principal); M96.1 Postlaminectomy syndrome, not elsewhere classified; Z45.1 Encounter for adjustment and management of infusion pump; J45.909 Unspecified asthma, uncomplicated; I10 Essential (primary) hypertension; E78.5 Hyperlipidemia, unspecified; I25.10 Atherosclerotic heart disease of native coronary artery without angina pectoris; M19.90 Unspecified osteoarthritis, unspecified site; F32.9 Major depressive disorder, single episode, unspecified; E03.9 Hypothyroidism, unspecified; Z88.6 Allergy status to analgesic agent; Z88.1 Allergy status to other antibiotic agents
CPT/HCPCS: 62370

== ENCOUNTER → 2020-10-08 10:25 | Outpatient (CLI) | payer MEDICARE, BC, SELFPAY ==
--- NOTE | 2020-10-08 10:56 | XR_ITS ---
PROCEDURE: XR CHEST PORTABLE CLINICAL HISTORY: COVID OUTPATIENT Cough COMPARISON: CR CXR2V XR chest 2V from 08/09/[address] CHEST WO CON from 03/11/2019 DX XR CHEST 2V from 07/05/2019 CR XR CHEST 2V from 10/14/2019 FINDINGS: Borderline cardiomegaly without failure. Minimal atelectatic or fibrotic changes are present in the left lung base. The remaining lungs are clear. Total right shoulder prosthesis present. IMPRESSION: No acute findings. Dictated by: Bruno Coello MD 10/08/2020 11:21 Bruno Coello MD in [place] 10/08/2020 11:21
[2020-10-08 11:07] LABS: Microscopic, Urine URINE MICROSCOPIC (MICROSCOPIC)
[2020-10-08 11:13] LABS: Appearance,Urine CLEAR (Clear); Bilirubin,Urine Negative (Negative); Blood, Urine Negative (Negative); Color,Urine YELLOW (Yellow); Glucose,Urine (UA) Negative (Negative); Ketones,Urine Negative (Negative); Leukocyte Esterase,Urine Negative (Negative); Nitrate,Urine Negative (Negative); PH,Urine 5.5 (5.0-8.5); Protein,Urine Negative (Negative); Specific Gravity, Urine >= 1.030 (1.005-1.030); Urobilinogen,Urine 0.2 EU/dl (0.2)
[2020-10-08 11:14] LABS: Basophils % 0.5 % (0.1-2.0); Eosinophils % 0.7 % (0.1-12.0); Hematocrit 41.4 % (37.0-47.0); Hemoglobin 13.5 g/dL (12.2-16.2); Lymphocytes # 1.4 K/mm3 (0.7-4.5); Lymphocytes % 29.3 % (10-50); Mean Corpuscular HGB Conc 32.7 g/dL (31.8-35.4); Mean Corpuscular Hemoglobin 31.7 pg (27.0-31.2); Mean Corpuscular Volume 97.1 fl (81-99); Monocytes # 0.3 K/mm3 (0.1-1.0); Monocytes % 6.9 % (1.7-9.3); Neutrophils # 3.1 K/mm3 (1.8-7.8); Neutrophils % 62.6 % (37.0-80.0); Platelet Count 183 K/mm3 (142-424); Red Blood Count 4.26 M/mm3 (4.20-5.40); Red Cell Distribution Width 13.1 % (11.5-17.5); White Blood Count 4.9 K/mm3 (4.8-10.8)
[2020-10-08 11:28] LABS: Chloride 106 mmol/L (98-107); Potassium 4.1 mmoL/L (3.5-5.1); Sodium 141 mmol/L (136-145)
[2020-10-08 11:35] LABS: Bacteria,Urine 1+ /lpf; Mucus,Urine 2+ /lpf; Squamous Epithelial Cell,Urine Occasional #/hpf (0-5)
[2020-10-08 12:04] LABS: Alanine Aminotransferase 20 U/L (12-78); Albumin Level 4.5 g/dl (3.5-5.0); Albumin/Globulin Ratio 1.7 (1.1-1.8); Alkaline Phosphatase 113 U/L (38-126); Anion Gap 13.1 mEq/L (5-15); Aspartate Amino Transferase 32 U/L (14-36); Bilirubin,Total 0.8 mg/dl (0.2-1.3); Blood Urea Nitrogen 14 mg/dl (7-17); Calcium 10.3 mg/dl (8.4-10.2); Carbon Dioxide 26 mmol/L (22.0-30.0); Estimated Glomerular Filt Rate 50 ml/min (>60); GFR (African American) 60 ML/MIN (>60); Globulin 2.6 g/dL (1.3-3.2); Glucose 99 mg/dl (74-100); Total Protein,Serum 7.1 g/dl (6.3-8.2)
== END ==
PROVIDERS: PCP Internal Medicine Adolescent Medicine; Visit Provider Internal Medicine Adolescent Medicine
DX: Z20.822 Contact with and (suspected) exposure to COVID-19 (principal); R50.9 Fever, unspecified; R05 Cough
CPT/HCPCS: 36415; 71045; 80053; 81001; 85025; U0003

== ENCOUNTER → 2020-10-22 10:25 | Outpatient (POV) | payer MEDICARE, BC, SELFPAY ==
[2020-10-22 10:40] VITALS: BP 118/74; PULSE 103; RESP 18; O2SAT 98; BMI 29.6
--- NOTE | 2020-10-22 11:08 | HMH.PMPROC ---
- Procedure Date: 10/22/20 Time: 11:08 Anesthesiologist:: Pebbles Alvarado APRN Complications:: None Pre-procedure Diagnosis:: Degenerative disc disease lumbar spine lumbar radiculopathy, back pain, postlaminectomy syndrome Post-procedure Diagnosis:: Same Indications for Procedure:: Patient is a pleasant 64-year-old white female who presents today for follow-up. Patient has an intrathecal pain pump however her pain is quite severe she rates it a 7 out of 10 she states it is a nerve pain in her bilateral lower extremities. Patient is visibly uncomfortable. Patient has tried and failed gabapentin, Lyrica, duloxetine, Elavil, Effexor. Patient and I discussed potential epidural steroid injection she is agreeable. She was given a 25 mcg bolus of fentanyl which did not help much at the time. Procedure Details:: Informed consent was obtained and the risk and benefits of the procedure were explained to the patient. The patient was taken to the procedure room where noninvasive monitoring was placed including noninvasive blood pressure cuff and pulse oximeter. Patient's pump was interrogated and reprogrammed. The infusion rate was increased to 375 mcg/day of fentanyl. The patient tolerated the procedure well. Plan and Disposition:: I will set the patient up for an L4-L5 lumbar epidural steroid injection. I will follow-up with her after this reassess her symptoms at that time she has been instructed to call the office if she has any issues prior to her next appointment. Dr. Kidd has reviewed this note and agrees with this plan of care. This note was dictated using voice recognition software and may contain errors or omissions
== END ==
PROVIDERS: PCP Internal Medicine Adolescent Medicine; Visit Provider Clinical Nurse Specialist Family Health
DX: M51.16 Intervertebral disc disorders with radiculopathy, lumbar region (principal); M96.1 Postlaminectomy syndrome, not elsewhere classified
CPT/HCPCS: 62368

== ENCOUNTER 2020-11-02 09:21 | Day surgery (SDC) | payer MEDICARE, BC, SELFPAY ==
[2020-11-02 09:48] VITALS: BP 132/87; PULSE 80; RESP 18; TEMP 36.6; O2SAT 98
[2020-11-02 11:36] VITALS: BP 121/74; PULSE 85; RESP 18; O2SAT 98
[2020-11-02 11:37] VITALS: BP 121/74; PULSE 79; RESP 18; O2SAT 98
--- NOTE | 2020-11-02 11:38 | HMH.PMPROC ---
- Procedure Date: 11/02/20 Time: 11:38 Anesthesiologist:: Sagar Kidd MD Complications:: None Pre-procedure Diagnosis:: Degenerative disc disease of lumbar spine with lumbar radiculopathy symptoms and postlaminectomy syndrome lumbar spine Post-procedure Diagnosis:: Same Indications for Procedure:: Patient is a pleasant 65-year-old white female who we are treating for low back pain with lumbar radiculopathy symptoms. She does have an intrathecal fentanyl pain pump in place. She is developed some increasing pain in her low back and down her legs left greater than right. This is not relieved by the pump. We will do a lumbar pleural steroid injection today to see if this will help with her pain symptoms especially down her legs. Procedure Details:: Lumbar epidural steroid injection under fluoroscopy Informed consent was obtained and the risk and benefits of the procedure was explained to the patient. The patient was taken to the procedure room. The patient was placed prone on the procedure table. The patient was prepped and draped in sterile fashion. C-arm fluoroscopy was used to view the lumbar spine. Skin and subcutaneous tissues were anesthetized using lidocaine. I placed an 18-gauge epidural needle and advanced into the L4-L5 interspace using fluoroscopic guidance and [id number] to air. After confirmation of needle placement in the epidural space with dye I injected 2 mL of lidocaine 1.5% with Depo-Medrol 80 mg. Patient tolerated the procedure well with no complications. Plan and Disposition:: We will follow-up with her in 2 weeks. Will reevaluate her symptoms at that time. We have given her information on spinal cord stimulation. She may be a good candidate for spinal cord stimulator trial to see if this will help with her radicular symptoms.
[2020-11-02 11:46] VITALS: BP 153/81; PULSE 69; RESP 18; O2SAT 98
== END 2020-11-02 11:47 | disposition home or self-care (01) ==
LOC: SC.PAINP 09:22
PROVIDERS: PCP Internal Medicine Adolescent Medicine; Visit Provider Anesthesiology
DX: M51.16 Intervertebral disc disorders with radiculopathy, lumbar region (principal); M96.1 Postlaminectomy syndrome, not elsewhere classified; Z45.1 Encounter for adjustment and management of infusion pump; I10 Essential (primary) hypertension; J45.909 Unspecified asthma, uncomplicated; N28.9 Disorder of kidney and ureter, unspecified; F41.9 Anxiety disorder, unspecified; F32.9 Major depressive disorder, single episode, unspecified; Z90.49 Acquired absence of other specified parts of digestive tract; Z88.1 Allergy status to other antibiotic agents; Z88.6 Allergy status to analgesic agent; Z88.8 Allergy status to other drugs, medicaments and biological substances
CPT/HCPCS: 62323; J1040; Q9966

== ENCOUNTER → 2020-11-19 09:21 | Outpatient (POV) | payer MEDICARE, BC, SELFPAY ==
[2020-11-19 09:47] VITALS: BP 132/85; PULSE 74; RESP 18; TEMP 36.8; O2SAT 98
--- NOTE | 2020-11-19 10:19 | HMH.PAINSOAP ---
[facility] Pain Management SOAP Note Subjective:: Patient is a pleasant 65-year-old white female who we are treating for low back pain with lumbar radiculopathy symptoms and postlaminectomy syndrome. She has an intrathecal pain pump. Patient is following up after lumbar epidural steroid and injection. Patient did not get any relief from this she rates her pain today an 8 out of 10. She is having nerve pain in her bilateral lower extremities. Patient is having difficulty with even wearing pants due to the sensation. Patient has tried and failed Lyrica and gabapentin. She and Dr. King spoke about a neurostimulator. She is interested in pursuing this. We had a long discussion about realistic goals and expectations along with the trialing process and implantation process. ROS General: no recent weight change, no fever, no sleep disturbances Respiratory: no cough, no shortness of air, no recurring pulmonary infections Cardiovascular/Peripheral Vascular: No chest pain, No palpitations, no edema, no shortness of breath. Gastrointestinal: no new onset incontinence, normal bowel movements reported Genitourinary: no new onset incontinence Musculoskeletal: Back pain, leg pain Psychiatric: normal mood/ affect Neurological: [denies new onset weakness in extremities], [denies new onset balance issues] Objective:: Physical Exam General: Alert and oriented x3, no acute distress, pleasant and cooperative, [on room air] Lungs: Resps E/U, Symmetrical chest expansion, Eyes: PERRL Musculoskeletal: Flexion and extension of lumbar spine somewhat guarded secondary to pain, deep tendon reflexes normal, strength in upper and lower extremities [5/5], [abnormal gait noted] Neurological: speech clear, sourcing analyst equal, no gross sensory deficits Assessment:: Degenerative disc disease lumbar spine lumbar radiculopathy symptoms, postlaminectomy syndrome, back pain Plan:: We will send the patient for psychological evaluation to determine if she is a candidate for a neurostimulator. After that we will move forward with a neurostimulator trial. We will utilize a True[employer] system. Patient's been instructed to call the office if she has any issues prior to her next appointment. Dr. Kidd has reviewed this note and agrees with this plan of care. This note was dictated using voice recognition software and may contain errors or omissions [facility] History I have reviewed the patient's past medical history: Yes Medical History: Reports:: Asthma, Coronary Artery Disease, Depression, Gastroesophageal Reflux Disease(GERD), Hyperlipidemia, Hypertension, Renal Disease Denies:: Cancer, Diabetes Mellitus Type 1, Diabetes Mellitus Type 2, Internal Pacemaker, MRSA, Seizures *Have you ever received a pneumonia vaccine?: No *Have you received a flu vaccine this season?: No Other Medical History: Reports: Anemia, Arthritis, Blood Transfusion Reaction, Cataracts, Fibromyalgia, Glaucoma (bilateral), Hypothyroidism, Sinus Problems, Thyroid Disease Laterality Cases: Left: Carpal Tunnel Release, Right: Total Hip Replacement, Other, Bilateral: Arthroscopy Knee, Breast Biopsy, Lumpectomy Other Surgeries: Yes: Appendectomy, Cardiac Catheterization, Cholecystectomy, Colonoscopy, Colon Resection, EGD, Hysterectomy-Total, Hysterectomy-Partial, Ureter Stent, Other (PAIN PUMP IMPLANT/REPLACEMENT). No: Pacemaker Amputation: No Fractures: Yes ((R) humerus, (L) wrist,) - *Social History Smoking Status: Never smoker Tobacco Type: cigarettes Alcohol Intake: never Substance Use Type: denies use *Occupational Status:: other Housing: house Household Members: spouse *Travel in the last 8 weeks: None - Psychiatric History Pschychiatric History:: Reports:: Depression Family Hx:: Unable to obtain
== END ==
PROVIDERS: PCP Internal Medicine Adolescent Medicine; Visit Provider Clinical Nurse Specialist Family Health
DX: M51.16 Intervertebral disc disorders with radiculopathy, lumbar region (principal); M96.1 Postlaminectomy syndrome, not elsewhere classified
CPT/HCPCS: 99212; G0463

== ENCOUNTER → 2020-12-06 08:24 | Outpatient (POV) | payer MEDICARE, BC, SELFPAY ==
[2020-12-06 08:26] VITALS: BP 135/71; PULSE 71; RESP 18; O2SAT 98; BMI 30.4
--- NOTE | 2020-12-06 08:57 | HMH.PMPROC ---
- Procedure Date: 12/06/20 Time: 08:57 Anesthesiologist:: Pebbles Alvarado APRN Complications:: None Pre-procedure Diagnosis:: Degenerative disease lumbar spine lumbar radiculopathy postlaminectomy syndrome Post-procedure Diagnosis:: Same Indications for Procedure:: Patient is a pleasant 65-year-old white female who presents today for intrathecal pain pump adjustment. Patient rates her pain a 9 out of 10. Patient has had a significant increase in her pain the last week. Patient is awaiting a neurostimulator trial. We will increase her intrathecal infusion today and order an MRI to help determine any new pathology. Patient is currently on 375 mcg a day of fentanyl. Procedure Details:: Informed consent was obtained and the risk and benefits of the procedure were explained to the patient. The patient was taken to the procedure room where noninvasive monitoring was placed including noninvasive blood pressure cuff and pulse oximeter. Patient's pump was interrogated and reprogrammed. The infusion rate was increased to 450 mcg of fentanyl day. The patient tolerated the procedure well. Plan and Disposition:: We will send the patient for a lumbar MRI to help determine any new pathology. She is still awaiting her neurostimulator trial. We will follow up with her afterwards reassess her symptoms at that time. She has been instructed to call the office if she has any issues prior to her next appointment.
== END ==
PROVIDERS: Visit Provider Clinical Nurse Specialist Family Health
DX: M51.16 Intervertebral disc disorders with radiculopathy, lumbar region (principal); M96.1 Postlaminectomy syndrome, not elsewhere classified
CPT/HCPCS: 62368

== ENCOUNTER → 2020-12-10 07:44 | Outpatient (CLI) | payer MEDICARE, BC, SELFPAY ==
--- NOTE | 2020-12-10 07:47 | MR_ITS ---
PROCEDURE: MR LUMBAR SPINE WO CON CLINICAL INDICATION: BACK PAIN COMPARISON: None available TECHNIQUE: Standard multiplanar multiecho sequences are performed without contrast. 3-D MIP and myelographic images are also rendered and reviewed FINDINGS: There is extensive susceptibility artifact limits evaluation of the lumbar spine. The lumbar spine appears normal in alignment. Multilevel disc desiccation with the disc bulges are noted. The bone marrow signal intensity is within normal limits without evidence of marrow edema or infiltrative process. The conus terminates at L1 level. The visualized paravertebral soft tissues are unremarkable. Further details as described below T12-L1: No significant canal or foraminal narrowing. L1-2: Small disc bulge and bilateral facet joint hypertrophy causes mild to moderate left foraminal and mild right foraminal narrowing. No significant canal narrowing is noted. L2-3: Broad-based disc bulge and bilateral facet joint hypertrophy causes mild to moderate bilateral foraminal narrowing. No significant canal narrowing. L3-4: Broad-based disc bulge, bilateral facet joint and ligamentum flavum hypertrophy causes mild canal, and moderate left foraminal narrowing. The right neural foramina is significantly obscured by the presence of overlying in artifact. L4-5: Broad-based disc bulge, and bilateral facet joint hypertrophy causes moderate to severe canal narrowing. There is moderate to severe left and moderate right foraminal narrowing. L5-S1: Small disc bulge and bilateral facet joint and hypertrophy is noted. There is moderate bilateral foraminal narrowing. IMPRESSION: Limited study due to susceptibility artifact. Multilevel degenerative changes, worse at L4-5 with moderate to severe bilateral foraminal narrowing as described above. Dictated by: Carmen Robles 12/10/2020 10:08 Carmen Robles in [place] 12/10/2020 10:08
== END ==
PROVIDERS: PCP Internal Medicine Adolescent Medicine; Visit Provider Clinical Nurse Specialist Family Health
DX: M54.5 Low back pain (principal)
CPT/HCPCS: 72148; 76376

== ENCOUNTER → 2020-12-17 09:08 | Outpatient (POV) | payer MEDICARE, BC, SELFPAY ==
[2020-12-17 09:16] VITALS: BP 129/81; PULSE 78; RESP 18; O2SAT 98; BMI 30.5
--- NOTE | 2020-12-17 09:31 | HMH.PMPROC ---
- Procedure Date: 12/17/20 Time: 09:31 Anesthesiologist:: Pebbles Alvarado APRN Complications:: None Pre-procedure Diagnosis:: Degenerative disc disease lumbar spine lumbar radiculopathy postlaminectomy syndrome Post-procedure Diagnosis:: Same Indications for Procedure:: Patient is a pleasant 65-year-old white female who presents today for intrathecal pain pump adjustment and MRI follow-up. Patient did get an MRI which showed worsening L4-L5 disc bulge. Patient has had epidural steroid injections with no real relief. Most of her pains in her lower back and bilateral lower extremities. Patient is scheduled for this week to have her neurostimulator trial I do believe that this will be beneficial for her. Patient states her pain is out of control . She rates it an 8 out of 10. She is visibly uncomfortable. She is currently on 450 mcg of fentanyl a day intrathecally. She denies side effects to her medication. [facility] #[id number] reviewed and appropriate. She would like an increase today. Procedure Details:: Informed consent was obtained and the risk and benefits of the procedure were explained to the patient. The patient was taken to the procedure room where noninvasive monitoring was placed including noninvasive blood pressure cuff and pulse oximeter. Patient's pump was interrogated and reprogrammed. The infusion rate was increased to 550 mcg/day of fentanyl. The patient tolerated the procedure well. Plan and Disposition:: Patient will have her neurostimulator trial as soon as possible. She is not on any anticoagulation therapy. Patient will have her intrathecal pain pump refilled at that time. She is been instructed to call the office if she has any issues prior to her next appointment. Dr. Kidd has reviewed this note and agrees with this plan of care. This note was dictated using voice recognition software and may contain errors or omissions
[2020-12-17 09:59] LABS: Basophils % 0.8 % (0.1-2.0); Eosinophils # 0.1 K/mm3 (0.0-0.4); Eosinophils % 2.3 % (0.1-12.0); Hematocrit 36.4 % (37.0-47.0); Hemoglobin 11.7 g/dL (12.2-16.2); Lymphocytes # 1.8 K/mm3 (0.7-4.5); Lymphocytes % 39.5 % (10-50); Mean Corpuscular HGB Conc 32.1 g/dL (31.8-35.4); Mean Corpuscular Hemoglobin 31.9 pg (27.0-31.2); Mean Corpuscular Volume 99.4 fl (81-99); Mean Platelet Volume 7.5 fl (7.4-10.4); Monocytes # 0.4 K/mm3 (0.1-1.0); Monocytes % 7.7 % (1.7-9.3); Neutrophils # 2.3 K/mm3 (1.8-7.8); Neutrophils % 49.8 % (37.0-80.0); Platelet Count 184 K/mm3 (142-424); Red Blood Count 3.66 M/mm3 (4.20-5.40); Red Cell Distribution Width 12.5 % (11.5-17.5); White Blood Count 4.6 K/mm3 (4.8-10.8)
[2020-12-17 10:18] LABS: Anion Gap 10.3 mEq/L (5-15); Blood Urea Nitrogen 14 mg/dl (7-17); Calcium 9.8 mg/dl (8.4-10.2); Carbon Dioxide 30 mmol/L (22.0-30.0); Chloride 106 mmol/L (98-107); Creatinine Clearance Estimated 76 mL/min (50-200); Estimated Glomerular Filt Rate 62 ml/min (>60); GFR (African American) 76 ML/MIN (>60); Glucose 92 mg/dl (74-100); Potassium 4.3 mmoL/L (3.5-5.1); Sodium 142 mmol/L (136-145)
== END ==
PROVIDERS: PCP Internal Medicine Adolescent Medicine; Visit Provider Clinical Nurse Specialist Family Health
DX: M51.16 Intervertebral disc disorders with radiculopathy, lumbar region (principal); M96.1 Postlaminectomy syndrome, not elsewhere classified; Z01.818 Encounter for other preprocedural examination
CPT/HCPCS: 36415; 62368; 80048; 85025; U0003

== ENCOUNTER 2020-12-19 08:58 | Day surgery (SDC) | payer MEDICARE, BC, SELFPAY ==
[2020-12-17 16:28] VITALS: BMI 30.7
[2020-12-19 09:31] VITALS: BP 122/66; PULSE 68; RESP 18; TEMP 36.6; O2SAT 100
--- NOTE | 2020-12-19 10:36 | P.PN_ITS ---
[facility] Anesthesia Checklist - Patient Identification Patient Identification: Arm Band - Structural Data Admitted From: Home Planned Operative Procedure/s: Placement of Trial Neurostimulator Leads under Fluoro with Pain Pump Refill Consent for Planned Operative Procedure(s) Verified: Yes Verified Documents: Surgical Consent, History and Physical - NPO Status Verified Time NPO: 00:00 - Additional verifications Anesthesia Reactions: No Hx Blood Transfusions: No Blood Transfusion Reaction: Yes - Airway Assessment C-Spine Mobility Assessed: Yes (mp2) TMJ Mobility Assessed: Yes Dentition: Good Dentition - Neurological Assessment Level of Consciousness: Awake, Alert - Anesthesia Plan Anesthesia Risk discussed: Yes Anesthesia Plan: Verified ASA Class: III Anesthesia Type: MAC [facility] History I have reviewed the patient's past medical history: Yes Medical History: Reports:: Asthma, Coronary Artery Disease, Depression, Gastroesophageal Reflux Disease(GERD), Hyperlipidemia, Hypertension, Renal Disease Denies:: Cancer, Diabetes Mellitus Type 1, Diabetes Mellitus Type 2, Internal Pacemaker, MRSA, Seizures *Have you ever received a pneumonia vaccine?: Yes *Have you received a flu vaccine this season?: Yes Other Medical History: Reports: Anemia, Arthritis, Blood Transfusion Reaction, Cataracts, Fibromyalgia, Glaucoma (bilateral), Hypothyroidism, Sinus Problems, Thyroid Disease Anesthesia experience/problems:: nac Laterality Cases: Left: Carpal Tunnel Release, Right: Total Hip Replacement, Other, Bilateral: Arthroscopy Knee, Breast Biopsy, Lumpectomy Other Surgeries: Yes: Appendectomy, Cardiac Catheterization, Cholecystectomy, Colonoscopy, Colon Resection, EGD, Hysterectomy-Total, Hysterectomy-Partial, Ureter Stent, Other (PAIN PUMP IMPLANT/REPLACEMENT). No: Pacemaker Amputation: No Fractures: Yes ((R) humerus, (L) wrist,) - *Social History Smoking Status: Never smoker Tobacco Type: cigarettes Alcohol Intake: never Substance Use Type: denies use *Occupational Status:: retired Housing: house Household Members: spouse *Travel in the last 8 weeks: None - Psychiatric History Pschychiatric History:: Reports:: Depression Family Hx:: Unable to obtain
--- NOTE | 2020-12-19 10:36 | SUR.OPER ---
fentanyl pump refill medication verified with MD Stafford prior to case start, verified with AF
[2020-12-19 10:56] VITALS: BP 119/74; PULSE 85; RESP 18; TEMP 36.2; O2SAT 100
[2020-12-19 11:06] VITALS: BP 128/64; PULSE 75; RESP 18; O2SAT 100
--- NOTE | 2020-12-19 11:06 | P.OP_ITS ---
Date of procedure: 12/19/20 Pre-op Diagnosis:: Degenerative disc disease of lumbar spine with lumbar radiculopathy symptoms and postlaminectomy syndrome lumbar spine with lumbar radiculopathy symptoms Post-op Diagnosis:: Same Procedure performed:: Spinal cord stimulator lead placement epidural x2 for spinal cord stimulator trial and intrathecal pump refill Surgeon:: Sagar Kidd MD SCRUBBER SYSTEM ATTENDANT:: Sebastian Westfall Anesthesia: MAC Estimated blood loss (mL): 1 Clinical Note:: Patient is a pleasant 65-year-old white female who we are treating for low back pain with lumbar radiculopathy symptoms. Most of her pain is in the low back radiating down her left leg with some pain down her right leg. She does have an intrathecal fentanyl pain pump in place she is currently going at 550 mics per day. She is not getting adequate relief with her intrathecal fentanyl pain pump. We will refill her pain pump today. Romeo and drug screen are all appropriate. She does have an antalgic gait. Motor strength of the lower extremities is 5/5. There is no gross sensory deficit. We will also plan on spinal cord stimulator trial to see if this will capture her radicular symptoms better. This will be with the [employer] system. Operative findings:: None Operative note:: Spinal cord stimulator trial lead placement Informed consent was obtained the risk and benefits of the procedure were explained to the patient. The back was anesthetized using lidocaine. A 17- gauge epidural needle was inserted and advanced into the L2-L3 interspace. After confirmation needle placement in the epidural space stimulating lead was inserted and advanced very easily to the T7-T8-T9 vertebral body. Lead placement was checked in AP and lateral views. A second needle was inserted and advanced again into the L1-L2 interspace. Again after confirmation of needle placement in the epidural space a stimulating lead was inserted and advanced again very easily to the T7-T8-T9 vertebral body. Again lead placement was checked in AP and lateral views. The needles and stylets were withdrawn. The leads were secured in place. The patient was taken to recovery in stable condition. Patient tolerated the procedure well with no complications. Patient was programmed by the [employer] community health representative with good stimulation in all areas of pain. Patient was put on a paresthesia free fast program. Patient was discharged home neurologically intact with good relief of pain symptoms. Pain pump refill informed consent was obtained and the risks and benefits of the procedure was explained to the patient. The patient was taken to the procedure room. The pump was interrogated. The area over the pump was prepped using ChloraPrep. The pump was accessed with a 22-gauge needle. Approximately 3.5 mL's of the intrathecal solution was withdrawn and discarded. The pump was then refilled with 20 mL's of intrathecal fentanyl 2000 mcg/mL. The pump was interrogated and the infusion was continued at 550 mics per day. . The patient tolerated the procedure well with no complication. We will follow-up with the patient in 1 week for lead pull. We will continue adjust her stimulation as needed. If she has any problems questions she is to call us back in the pain clinic. Condition: stable Disposition: PACU Complications:: None
[2020-12-19 11:16] VITALS: BP 139/68; PULSE 73; RESP 18; O2SAT 98
[2020-12-19 11:26] VITALS: BP 135/68; PULSE 71; RESP 18; O2SAT 98
--- NOTE | 2020-12-19 11:26 | SUR.PHASEII ---
DR EASON AT BEDSIDE, DISCUSSED PAIN LEVEL WITH PT. NO NEW ORDERS FOR PAIN MEDICATION AT THIS TIME. DR EASON EXPLAINED TO PT THAT PAIN SHOULD SUBSIDE IN 24HOURS, PT SMILED AND VERBALIZED UNDERSTANDING.
[2020-12-19 11:46] VITALS: BP 133/73; PULSE 70; RESP 18; O2SAT 98
== END 2020-12-19 11:49 | disposition home or self-care (01) ==
LOC: OR 09:00
PROVIDERS: PCP Internal Medicine Adolescent Medicine; Visit Provider Anesthesiology
DX: M51.16 Intervertebral disc disorders with radiculopathy, lumbar region (principal); M96.1 Postlaminectomy syndrome, not elsewhere classified; R26.89 Other abnormalities of gait and mobility; J45.909 Unspecified asthma, uncomplicated; I25.10 Atherosclerotic heart disease of native coronary artery without angina pectoris; K21.9 Gastro-esophageal reflux disease without esophagitis; E78.5 Hyperlipidemia, unspecified; I10 Essential (primary) hypertension; N28.9 Disorder of kidney and ureter, unspecified; D64.9 Anemia, unspecified; M19.90 Unspecified osteoarthritis, unspecified site; M79.18 Myalgia, other site
CPT/HCPCS: 63650 ×2; 95991; 96374; C1778; J3370

== ENCOUNTER → 2020-12-27 15:12 | Outpatient (POV) | payer MEDICARE, BC, SELFPAY ==
[2020-12-27 15:21] VITALS: BP 164/74; PULSE 75; RESP 18; O2SAT 98; BMI 30.5
--- NOTE | 2020-12-27 15:59 | HMH.PMPROC ---
- Procedure Date: 12/27/20 Time: 16:00 Anesthesiologist:: Makeda Nuno APRN Complications:: None Pre-procedure Diagnosis:: Degenerative disc disease lumbar spine with lumbar radiculopathy symptoms, postlaminectomy syndrome lumbar spine Post-procedure Diagnosis:: Same Indications for Procedure:: Patient is a pleasant 65-year-old white female who presents today for follow-up after spinal cord stimulator trial. She is being treated for degenerative disc disease lumbar spine with lumbar radiculopathy symptoms and postlaminectomy syndrome lumbar spine. Patient reports that she did not get any relief during the trial. She says that her pain is primarily in her bilateral legs and behind her knees. She says it is a sharp pain with burning sensation as well. She does have an intrathecal pain pump that was initially put into give her relief of her low back, however, she is also continuing to have significant low back pain. She currently has an intrathecal pump at 550 mcg of fentanyl per day with no side effects. Patient says that any movement of her lower extremities causes her pain to be worse. She says the pain is worse in the left leg. It does not go to the feet. She has tried Lyrica in the past which caused her to become confused and fall. She does have a history of dementia. She was previously on gabapentin 2400 mg that was grabbed by Dr. Hardy. She tolerated the medication appropriately at that time, however, after stopping the medication and restarting the medication on 800 mg 1 tablet p.o. 3 times daily, she became confused again. She is now on gabapentin milligrams 1 tablet p.o. twice daily. Patient says she has tried Effexor as well as amitriptyline. She has not gotten relief with those medications. She is now on Cymbalta. Unfortunately, the patient is very tearful today due to worsening pain. She is being treated for patient and does take Cymbalta twice daily. After conversation with the patient and her , I am concerned the patient did have an unrealistic expectation with the cord stimulator trial. Rates her pain a 6 out of 10 today. Patient and are requesting referral back to Dr. Dawkins. She has had a recent MRI of her lumbar spine. 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 Patient was taken to the procedure room where noninvasive monitoring was placed including noninvasive blood pressure cuff and pulse oximeter. Patient's pump was interrogated and was reprogrammed to fentanyl at 600 mcg/day. The patient tolerated the procedure well with no complications. Procedure in detail: Informed consent was obtained. The risks and benefits of the procedure were explained to the patient. The patient was taken to the procedure room where noninvasive monitors were placed, including noninvasive blood pressure cuff and pulse oximeter. The area around the leads was examined and there were no signs or symptoms of infection. The skin was cleansed using chlorhexidine around the trial leads. Both leads were removed without incident. Leads were complete and intact. Dressing was placed. Patient tolerated the procedure well with no complications. Plan and Disposition:: Patient has requested referral to Dr. Dawkins. We will refer the patient. She did fail the spinal cord stimulator trial. She does not feel she got any relief. We did increase her intrathecal pump toda
== END ==
PROVIDERS: PCP Internal Medicine Adolescent Medicine; Visit Provider Clinical Nurse Specialist Family Health
DX: M51.16 Intervertebral disc disorders with radiculopathy, lumbar region (principal); M96.1 Postlaminectomy syndrome, not elsewhere classified
CPT/HCPCS: 62370; 99212; G0463

== ENCOUNTER → 2021-01-04 14:36 | Outpatient (POV) | payer MEDICARE, BC, SELFPAY ==
[2021-01-04 14:49] VITALS: BP 136/72; PULSE 74; RESP 18; O2SAT 98; BMI 30.2
--- NOTE | 2021-01-04 15:12 | HMH.PMPROC ---
- Procedure Date: 01/04/21 Time: 15:12 Anesthesiologist:: Sagar Kidd MD Complications:: None Pre-procedure Diagnosis:: Degenerative disc disease of lumbar spine with lumbar radiculopathy symptoms and postlaminectomy syndrome lumbar spine Post-procedure Diagnosis:: Same Indications for Procedure:: Patient is a pleasant 65-year-old white female who we are treating for low back pain with lumbar radiculopathy symptoms and postlaminectomy syndrome lumbar spine. She has an intrathecal fentanyl pain pump currently going at 600 mcg/day. She is still having some increasing pain in her back with increased activity. We will increase her intrathecal fentanyl infusion today to see if this will help with her back pain and some of her leg pain. Procedure Details:: Reprogramming and adjustment of intrathecal fentanyl infusion Informed consent was obtained risk and benefits of the procedure were explained to the patient. Patient was taken the procedure room. The pump was interrogated. Intrathecal fentanyl infusion was increased to 800 mcg/day from 600 mcg/day. Patient tolerated procedure well with no complications. Plan and Disposition:: We will follow-up with her in 2 weeks. Will reevaluate symptoms at that time.
== END ==
PROVIDERS: PCP Internal Medicine Adolescent Medicine; Visit Provider Anesthesiology
DX: M51.16 Intervertebral disc disorders with radiculopathy, lumbar region (principal); M96.1 Postlaminectomy syndrome, not elsewhere classified; Z45.1 Encounter for adjustment and management of infusion pump
CPT/HCPCS: 62368

== ENCOUNTER → 2021-01-14 08:23 | Outpatient (CLI) | payer MEDICARE, BC, SELFPAY ==
[2021-01-14 11:25] LABS: Albumin Level 4.2 g/dl (3.5-5.0); Chloride 105 mmol/L (98-107); Potassium 4.5 mmoL/L (3.5-5.1); Sodium 141 mmol/L (136-145)
[2021-01-14 11:27] LABS: Blood Urea Nitrogen 17 mg/dl (7-17); Estimated Glomerular Filt Rate 62 ml/min (>60); GFR (African American) 76 ML/MIN (>60)
[2021-01-14 11:28] LABS: Anion Gap 9.5 mEq/L (5-15); Calcium 9.6 mg/dl (8.4-10.2); Carbon Dioxide 31 mmol/L (22.0-30.0); Glucose 86 mg/dl (74-100); Phosphorous 4.2 mg/dl (2.5-4.5)
== END ==
DX: N18.30 Chronic kidney disease, stage 3 unspecified (principal)
CPT/HCPCS: 36415; 80069

== ENCOUNTER → 2021-01-14 11:41 | Outpatient (POV) | payer MEDICARE, BC, SELFPAY ==
[2021-01-14 11:51] VITALS: BP 124/70; PULSE 72; RESP 18; O2SAT 98; BMI 30.2
--- NOTE | 2021-01-14 12:16 | HMH.PMPROC ---
- Procedure Date: 01/14/21 Time: 12:16 Anesthesiologist:: Makeda Nuno APRN Complications:: None Pre-procedure Diagnosis:: Degenerative disc disease lumbar spine with lumbar radiculopathy symptoms, postlaminectomy syndrome lumbar spine Post-procedure Diagnosis:: Same Indications for Procedure:: Patient is a 65-year-old white female who presents today for intrathecal pain pump refill and reprogram. She has been treated for degenerative disc disease lumbar spine with lumbar radiculopathy symptoms and postlaminectomy syndrome lumbar spine. Patient was seen in the clinic on 01/04/2021 and was increased with her intrathecal therapy from 600 mcg of fentanyl to 800 mcg/day. Patient says that the intrathecal pump is not giving her any relief at all. Her pain is an 8 out of 10 today. Patient says that she has had a catheter dye study and the pump was noted to be working properly. She is continued to have low back pain with radiation into her bilateral lower extremities. Patient was referred back to Dr. Dawkins for neurosurgical evaluation. She did have an MRI that was showing worsening bulging disks. She is here today for an increase in her intrathecal therapy. Patient I discussed that if she is continuing to have worsening pain with no improvement with her intrathecal pump, we could try decreasing the intrathecal therapy. If the patient feels the intrathecal pump is not giving her any relief, we will not continue to increase the dosing. She does not want to decrease in dosing today. She would like a small increase today. She is on 800 mcg/day of fentanyl. We will give her a very small increase today. I did explain to the patient that it will likely not benefit her pain. She would still like a small increase. She does rate her pain an 8 out of 10 today. Physical exam General: Alert and oriented x3, no acute distress, pleasant and cooperative, [on room air] Lungs: Respirations even and unlabored, symmetrical chest expansion Eyes: PERRL Musculoskeletal: Flexion and extension of [] lumbar spine somewhat guarded secondary to pain, deep tendon reflexes normal, strength in upper and lower extremities [5/5], [abnormal gait noted] Neurological: Speech clear, profile trimmer equal, no gross sensory deficit Procedure Details:: Informed consent was obtained and the risk and benefits of the procedure were explained to the patient. Patient was taken to the procedure room where noninvasive monitoring was placed including noninvasive blood pressure cuff and pulse oximeter. Patient's pump was interrogated and was reprogrammed to fentanyl at 150 mcg/day. The patient tolerated the procedure well with no complications. Plan and Disposition:: The patient has requested to follow-up with the physician regarding her intrathecal pain pump. I did discuss with the patient if she is not getting any significant relief with the pump, we would likely need to do weighing her therapy rather than continuing to increase. Patient says she is getting no relief from the pump and never has gotten relief from the pump. She does have an appointment with Dr. Dawkins in March for neurosurgical evaluation. She has seen Dr. Dawkins in the past who advised the patient that she was not a surgical candidate, however, the patient would like to follow-up with him once again. Patient has requested to discuss her medication options with Dr. Gold. We will schedule her to follow-up with her in 1 week. Her Romeo #[id number] has been reviewed and is appropriate. Gesture and is appropriate. Patient is also managed with gabapentin 100 mg 1 tablet p.o. twice daily. Patient has been instructed to contact the clinic with any concerns before the next appointment. Dr. Gold has reviewed this note and agrees with this plan of care. This note was dictated using voice recognition software and make contain errors or omissions.
== END ==
PROVIDERS: PCP Internal Medicine Adolescent Medicine; Visit Provider Clinical Nurse Specialist Family Health
DX: M51.16 Intervertebral disc disorders with radiculopathy, lumbar region (principal); M96.1 Postlaminectomy syndrome, not elsewhere classified; Z45.1 Encounter for adjustment and management of infusion pump
CPT/HCPCS: 36415; 62368; 80069

== ENCOUNTER 2021-01-25 10:56 | Day surgery (SDC) | payer MEDICARE, BC, SELFPAY ==
[2021-01-25 11:22] VITALS: BP 110/67; PULSE 65; RESP 18; TEMP 36.7; O2SAT 97; BMI 30.5
[2021-01-25 13:19] VITALS: BP 177/88; PULSE 61; RESP 20; O2SAT 98
[2021-01-25 13:22] VITALS: PULSE 59; RESP 20; O2SAT 98
[2021-01-25 13:35] VITALS: BP 132/67; PULSE 73; RESP 20; O2SAT 97
--- NOTE | 2021-01-25 14:52 | HMH.PMPROC ---
- Procedure Date: 01/25/21 Time: 14:52 Anesthesiologist:: Kimberly Gold MD Complications:: None Pre-procedure Diagnosis:: Degenerative disc disease of lumbar spine, lumbar radiculopathy, postlaminectomy syndrome of lumbar spine Post-procedure Diagnosis:: Same Indications for Procedure:: She is a very pleasant 65-year-old white female who presents today with chronic low back pain radiating into her legs related to the above diagnosis. She has an intrathecal pump with a [employer]ix pump system. She reports that her pain is overall well managed with this pump however she notes that her pain has increased slightly her last visit. She is currently on intrathecal fentanyl 2000 mcg/mL with a daily dose of 850 mcg/day. the plan for today is for her to undergo intrathecal pain pump refill, adjustment, and reprogramming. Procedure Details:: Informed consent was obtained and the risks and benefits of the procedure was explained to the patient. The patient was taken to the procedure room. The pump was interrogated. The area over the pump was prepped using ChloraPrep. The pump was accessed with a 22-gauge needle. Approximately [6] mL's of the intrathecal solution was withdrawn and discarded. The pump was then refilled with 20 mL's of intrathecal [fentanyl 2000 mcg/mL]. The pump was interrogated and the infusion was [increased to 1020.0 mcg per day]. The patient tolerated the procedure well with no complications. Next refill date is on [February 27, 2021]. Plan and Disposition:: We will follow-up with this patient at her next pump refill on her before February 27, 2021. Will reevaluate her pain symptoms and make adjustments as needed.
== END 2021-01-25 13:40 | disposition home or self-care (01) ==
LOC: SC.PAINP 10:57
PROVIDERS: PCP Internal Medicine Adolescent Medicine; Visit Provider Anesthesiology Pain Medicine
DX: M51.16 Intervertebral disc disorders with radiculopathy, lumbar region (principal); M96.1 Postlaminectomy syndrome, not elsewhere classified; E07.9 Disorder of thyroid, unspecified; I25.10 Atherosclerotic heart disease of native coronary artery without angina pectoris; E78.5 Hyperlipidemia, unspecified; I10 Essential (primary) hypertension; J45.909 Unspecified asthma, uncomplicated; K21.9 Gastro-esophageal reflux disease without esophagitis; N28.9 Disorder of kidney and ureter, unspecified; M79.18 Myalgia, other site; M19.90 Unspecified osteoarthritis, unspecified site; D64.9 Anemia, unspecified
CPT/HCPCS: 62370

== ENCOUNTER 2021-03-01 08:11 | Day surgery (SDC) | payer MEDICARE, BC, SELFPAY ==
[2021-03-01 08:18] VITALS: BP 114/69; PULSE 76; RESP 18; TEMP 36.7; O2SAT 98; BMI 30.7
[2021-03-01 08:45] VITALS: BP 124/83; PULSE 64; RESP 18; O2SAT 97
[2021-03-01 08:47] VITALS: BP 120/90; PULSE 57; RESP 18; O2SAT 98
--- NOTE | 2021-03-01 08:56 | HMH.PMPROC ---
- Procedure Date: 03/01/21 Time: 08:56 Anesthesiologist:: Kimberly Gold MD Complications:: None Pre-procedure Diagnosis:: Degenerative disc disease of the lumbar spine, lumbar radiculopathy Post-procedure Diagnosis:: Same Indications for Procedure:: Patient is a very pleasant 65-year-old white female who presents today with chronic low back pain radiating into her legs related to the above diagnosis. She is here for intrathecal pain pump refill and requesting today for additional crease in a daily dose as she states that she still continues to experience some pain in her low back that is going down her legs. She previously had a dose adjustment at the last visit and she notes some improvement but she reports that the pain is still intolerable at this time. She is currently on fentanyl 2000 mcg/mL on constant flow with a daily dose of 1020 mcg/day. Today we will plan on performing intrathecal pain pump refill and reprogram with a dose increase of 20%. Procedure Details:: Informed consent was obtained and the risks and benefits of the procedure was explained to the patient. The patient was taken to the procedure room. The pump was interrogated. The area over the pump was prepped using ChloraPrep. The pump was accessed with a 22-gauge needle. Approximately [3] mL's of the intrathecal solution was withdrawn and discarded. 2.3 ml of the intrathecal solution was expected. The pump was then refilled with 20 mL's of intrathecal [2000 mcg/mL]. The pump was interrogated and the infusion was [increased by 20% to 1224 mcg/day]. The patient tolerated the procedure well with no complications. Next refill date is on [March 28, 2021]. Plan and Disposition:: We will follow-up with this patient on her before March 28, 2021 which is the patient's refill date.
[2021-03-01 09:00] VITALS: BP 123/63; PULSE 66; RESP 18; O2SAT 98
== END 2021-03-01 09:00 | disposition home or self-care (01) ==
PROVIDERS: PCP Internal Medicine Adolescent Medicine; Visit Provider Anesthesiology Pain Medicine
DX: M51.16 Intervertebral disc disorders with radiculopathy, lumbar region (principal); Z45.1 Encounter for adjustment and management of infusion pump
CPT/HCPCS: 62370

== ENCOUNTER → 2021-03-28 08:19 | Day surgery (SDC) | payer MEDICARE, BC, SELFPAY ==
[2021-03-28 08:20] VITALS: BP 108/63; BP 124/62; PULSE 67; PULSE 69; RESP 18; O2SAT 97; BMI 30.5
--- NOTE | 2021-03-28 08:41 | HMH.PMPROC ---
- Procedure Date: 03/28/21 Time: 08:42 Anesthesiologist:: Makeda Nuno APRN Complications:: None Pre-procedure Diagnosis:: Degenerative disc disease lumbar spine with radiculopathy symptoms Post-procedure Diagnosis:: Same Indications for Procedure:: Patient is a pleasant 65-year-old white female who presents today for program. Degenerative disc disease symptoms. Patient rates her pain a 7 out of 10. She is continuing to have some increased pain. She would like an increase in her dose today. She is currently on fentanyl at 1224 mcg/day. We are increasing her concentration today. I did discuss with the patient and her that we would do a slow increase due to the patient's history of oversedation. We also discussed that she will get an increase in her concentration today. They're in agreement. Patient understands she can return in between refills for an increase if she needs an increase. We'll also plan to increase the patient's concentration at the next visit to prolong time between refill visits. We will increase the patient's concentration to fentanyl 6000 mcg/mL. 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 The patient was taken to the procedure room where noninvasive monitoring was placed including noninvasive blood pressure cuff and pulse oximeter. Patient's pump was interrogated. The area over the pump was cleansed with chlorhexidine as a cleansing solution. In sterile fashion the pump was accessed with a 22-gauge needle. Approximately 3.5 mls of the pump solution was removed and discarded appropriately. The pump was then refilled with 20 mL's of full continue last 2000 mcg. The needle was withdrawn and a bandage was placed over the puncture site. The infusion rate was reprogrammed at fentanyl 1280 mcg/day. The patient tolerated well with no complication. Plan and Disposition:: We will see the patient back in the clinic at the next intrathecal refill. Patient has been instructed to contact the clinic with any concerns before the next appointment. Dr. Kidd has reviewed this note and agrees with this plan of care. This note was dictated using voice recognition software and make contain errors or omissions.
[2021-03-28 09:06] VITALS: BP 100/58; PULSE 67; RESP 18; O2SAT 97
== END ==
PROVIDERS: PCP Internal Medicine Adolescent Medicine; Visit Provider Clinical Nurse Specialist Family Health
DX: M51.16 Intervertebral disc disorders with radiculopathy, lumbar region (principal); Z45.1 Encounter for adjustment and management of infusion pump
CPT/HCPCS: 62370

== ENCOUNTER 2021-04-06 09:07 | Emergency (ER) | payer MEDICARE, BC, SELFPAY ==
[2021-04-06 09:15] VITALS: BP 131/80; PULSE 70; RESP 20; TEMP 36.6; O2SAT 97; BMI 30.8
--- NOTE | 2021-04-06 09:43 | XR_ITS ---
PROCEDURE INFORMATION: Exam: XR Chest Exam date and time: 04/06/2021 9:43 AM Age: 65 years old Clinical indication: Patient HX: Cough and congestion since last . TECHNIQUE: Imaging protocol: XR of the chest. Views: 2 views. COMPARISON: CR XR CHEST PORTABLE 10/08/2020 11:03 AM FINDINGS: Lungs: Discoid atelectasis . No focal consolidation Pleural spaces: Unremarkable. No pleural effusion. No pneumothorax. Heart/Mediastinum: Stable cardiac silhouette Bones/joints: Right total shoulder arthroplasty IMPRESSION: No focal consolidation
--- NOTE | 2021-04-06 10:09 | HMH.EDUTC ---
[facility] [place] Disposition Clinical Impression: Cough Sinusitis Qualifiers: Sinusitis location: unspecified location Chronicity: unspecified Qualified Code(s): J32.9 - Chronic sinusitis, unspecified Disposition: Home, Self-Care Condition on Discharge: Good Instructions: Sinusitis, Cough, DI for Sinusitis Additional Instructions: ? Start antibiotic today. Be sure to complete entire prescription even if feeling better ? Monitor temp. Tylenol every 4 hours as needed and / or ibuprofen every 6 hours as needed ( As long as your primary care physician has told you that it ok to take both. For fever/aches/pains ER if no less than 101 despite Tylenol or Motrin ? Humidifier/vaporizer or hot steamy shower may help with nasal congestion and cough ? Inhaler every 4-6 hours as needed like we discussed. If unsure how to use it, ask pharmacist to demonstrate how. Should help open airways and improve cough, wheezing, and shortness of breath *Tessalon Perles will not cause drowsiness but use at bedtime to help stop cough so that you may get some rest. Follow up IMMEDIATELY for new or worsening of symptoms OR no noticeable improvement over the next 48-72 hours. 911 immediately for any life threatening symptoms such as chest pain or difficulty breathing Prescriptions: Fluticasone Propionate [Flonase 50mcg nasal spray 16gm] 1 spr NS DAILY #1 ml Transmission Status: Received by [facility] levoFLOXacin [Levaquin 500mg tab] 500 mg PO DAILY 7 Days #7 tab Transmission Status: Received by [facility] Benzonatate [Tessalon Perle 100mg Cap*] 100 mg PO TID PRN #30 cap PRN Reason: Cough Transmission Status: Received by [facility] Referrals: Marc Rodriguez MD [Primary Care Provider] - As needed Time of Disposition: 10:35 Medical Decision Making - Romeo Inquiry Pt receiving controlled substance: No Romeo was queried for this patient: No Vital Signs: 04/06/21 09:15 04/06/21 10:35 Temperature 97.8 F 97.8 F Temperature Source Oral Pulse Rate 70 Pulse Rate [Right Brachial] 70 Respiratory Rate 20 20 Blood Pressure 131/80 Blood Pressure [Right Arm] 131/80 Blood Pressure Mean [Right Arm] 97 Blood Pressure Source [Right Arm] Automatic Cuff Blood Pressure Position [Right Arm] Sitting 02 Sat by Pulse Oximetry 97 Oxygen Delivery Method Room Air Orders (Tests/Meds): ORDERS Category Date Time Status Covid-19 Nasal PCR ([facility]) Routine Lab 04/06/21 10:15 Received - Radiology Data #1 Image(s): Chest Image Reviewed: Yes I reviewed the patient's radiology image w/the ED provider No acute changes Medical Decision Narrative: Medication discussed with pharmacy, patient states that she took Levaquin in the past without complications and reactions [facility] [place] HPI - General Stated complaint: cough, congestion Time Seen by Provider: 04/06/21 10:09 Mode of Arrival: Ambulatory Source of Information: Patient Limitations: No Limitations Description of Symptoms (Recalled from Triage Doc. by RN): PATIENT C/O DRY, HACKY COUGH AND CONGESTION X 1 WEEK. HAD NEGATIVE COVID TEST ON THURSDAY HEENT Symptoms (Recalled from RN notes): Yes Resp Symptoms (Recalled from RN notes): Yes Skin Symptoms (Recalled from RN notes): No MS Symptoms (Recalled from RN notes): No Functional Status (Recalled from RN notes): WNL - History of Present Illness Provider Complaint: Patient state that she started feeling bad about a week ago State that she took COVID test on Thursday and it was negative State that she has continued to have worsening of sinus congestion and pressure and feels like it is draining in the back of her throat and making her have a hacky cough - Related Data Home Medications Medication Instructions Recorded Confirmed Cholecalciferol (Vitamin D3) 50,000 unit PO DIRECTED 10/09/17 03/01/21 [Vitamin D3 50,000 unit Cap] Eszopiclone [Lunesta] 3 mg PO HS 10/09/17 03/01/21 Lutein 20 mg PO DAILY 10/09/17
[2021-04-06 10:35] VITALS: BP 131/80; PULSE 70; RESP 20; TEMP 36.6; O2SAT 97
== END 2021-04-06 10:40 | disposition home or self-care (01) ==
PROVIDERS: Emergency Provider Nurse Practitioner; PCP Internal Medicine Adolescent Medicine
DX: R05 Cough (principal); J32.9 Chronic sinusitis, unspecified
CPT/HCPCS: 71046; 99202; G0463; U0003

== ENCOUNTER 2021-04-12 08:00 | Outpatient (RCR) | payer MEDICARE, BC, SELFPAY | END 2021-04-12 08:05 | disposition home or self-care (01) | LOC: PT 08:00 | PROVIDERS: PCP Internal Medicine Adolescent Medicine | DX: M54.5 Low back pain (principal) | CPT/HCPCS: 97014; 97035; 97110; 97163; G0283 ==

== ENCOUNTER 2021-05-06 13:55 | Day surgery (SDC) | payer MEDICARE, BC, SELFPAY ==
[2021-05-06 13:57] VITALS: BP 160/74; PULSE 86; RESP 18; TEMP 36.4; O2SAT 94; BMI 30.7
[2021-05-06 14:27] VITALS: BP 125/70; PULSE 81; RESP 18; O2SAT 96
[2021-05-06 14:31] VITALS: BP 118/75; PULSE 81; RESP 18; O2SAT 95
--- NOTE | 2021-05-06 14:37 | P.PCN_ITS ---
- Procedure Date: 05/06/21 Time: 14:37 Anesthesiologist:: Makeda Nuno APRN Complications:: None Pre-procedure Diagnosis:: Degenerative disc disease lumbar spine with lumbar radiculopathy symptoms Post-procedure Diagnosis:: Same Indications for Procedure:: Patient is a 65-year-old white female who presents today for intrathecal pain pump refill and reprogram. She has been treated for degenerative disc disease lumbar spine with lumbar radiculopathy symptoms and spinal stenosis with neurogenic claudication symptoms. She is scheduled to undergo surgical intervention in July for spinal stenosis with Dr. Dawkins. She is requesting to follow-up with us 1 week prior to her surgery so that she does not have to come back to the clinic immediately postoperative. She is currently with fentanyl at 1280 mcg/day in her pump. She denies any side effects. Patient does take Lunesta provided by her primary care provider as well. She has been advised that she is at a high risk of oversedation taking Lunesta with intrathecal therapy. She is aware. [facility] #[id number] has been reviewed and is appropriate. Patient's morphine equivalent is 0. Patient has been advised that the intrathecal pump will not provide relief with acute pain post surgery. She would likely need to be managed with oral medications, however, she may also need a decrease in her intrathecal therapy at this time to prevent oversedation. She does rate her pain a 6 out of 10 today. Physical exam General: Alert and oriented x3, no acute distress, pleasant and cooperative, [on room air] Lungs: Respirations even and unlabored, symmetrical chest expansion Eyes: PERRL Musculoskeletal: Flexion and extension of lumbar [spine] somewhat guarded secondary to pain, strength in upper and lower extremities [5/5], [antalgic gait noted] Neurological: Speech clear, [collar sewer equal], no gross sensory deficit Procedure Details:: Informed consent was obtained and the risk and benefits of the procedure were explained to the patient. The patient was taken to the procedure room where noninvasive monitoring was placed including noninvasive blood pressure cuff and pulse oximeter. Patient's pump was interrogated. The area over the pump was cleansed with chlorhexidine as a cleansing solution. In sterile fashion the pump was accessed with a 22-gauge needle. Approximately 6 mls of the pump solution was removed and discarded appropriately. The pump was then refilled with 20 mL's of fentanyl 6000 mcg per mill. The needle was withdrawn and a bandage was placed over the puncture site. The infusion rate was reprogrammed at increased to fentanyl at 1300 mcg/day. The patient tolerated well with no complication. Plan and Disposition:: We will see the patient back in the clinic at the next intrathecal refill. Patient has been instructed to contact the clinic with any concerns before the next appointment. Dr. Kidd has reviewed this note and agrees with this plan of care. This note was dictated using voice recognition software and make contain errors or omissions.
[2021-05-06 14:50] VITALS: BP 125/70; PULSE 79; RESP 20; O2SAT 79
== END 2021-05-06 14:50 | disposition home or self-care (01) ==
LOC: SC.PAINP 13:56
PROVIDERS: PCP Internal Medicine Adolescent Medicine; Visit Provider Clinical Nurse Specialist Family Health
DX: M51.16 Intervertebral disc disorders with radiculopathy, lumbar region (principal); Z45.1 Encounter for adjustment and management of infusion pump
CPT/HCPCS: 62370

== ENCOUNTER 2021-07-08 14:40 | Day surgery (SDC) | payer MEDICARE, BC, SELFPAY ==
--- NOTE | 2021-07-08 14:49 | HMH.PMPROC ---
- Procedure Date: 07/08/21 Time: 14:49 Anesthesiologist:: Makeda Nuno APRN Complications:: None Pre-procedure Diagnosis:: Degenerative disc disease lumbar spine with lumbar radiculopathy symptoms Post-procedure Diagnosis:: Same Indications for Procedure:: Patient is a pleasant 85-year-old white female who presents today for intrathecal pain pump [refill] [and reprogram]. The patient is being treated for degenerative disc disease lumbar spine with lumbar radiculopathy symptoms. She has been seen by neurosurgery at [facility] for her lumbar spine. During the consultation, the patient was noted to have significant stenosis and bulging disks to her cervical spine as well. As result, the patient is now scheduled for cervical fusion/discectomy of cervical spine. She says 8 weeks postoperative day we will plan for surgery to her lumbar spine. The patient is currently on fentanyl at 1300 mcg/day and denies any side effects.. Patient rates pain a 7 out of 10. Drug screen is appropriate. [facility] [phone] has been reviewed and is appropriate. Physical exam General: Alert and oriented x3, no acute distress, pleasant and cooperative, [on room air] Lungs: Respirations even and unlabored, symmetrical chest expansion Eyes: PERRL Musculoskeletal: Flexion and extension of cervical and lumbar [spine] somewhat guarded secondary to pain, [antalgic gait noted] Neurological: Speech clear, no gross sensory deficit Procedure Details:: Informed consent was obtained and the risk and benefits of the procedure were explained to the patient. The patient was taken to the procedure room where noninvasive monitoring was placed including noninvasive blood pressure cuff and pulse oximeter. Patient's pump was interrogated. The area over the pump was cleansed with chlorhexidine as a cleansing solution. In sterile fashion the pump was accessed with a 22-gauge needle. Approximately 4 mls of the pump solution was removed and discarded appropriately. The pump was then refilled with 20 mL's of fentanyl 6000 mcg/mL. The needle was withdrawn and a bandage was placed over the puncture site. The infusion rate was reprogrammed at fentanyl at 1300 mcg/day. The patient tolerated well with no complication. Plan and Disposition:: We will plan to increase the patient's fentanyl medication in her intrathecal pump to 10,000 mcg/mL next visit. This will decrease the time between refill visits. We will see the patient back in the clinic at the next intrathecal refill. Patient has been notified to contact the clinic when she is made aware of the medication that will be prescribed to her postoperative. Patient has been instructed to contact the clinic with any concerns before the next appointment. Dr. Kidd has reviewed this note and agrees with this plan of care. This note was dictated using voice recognition software and make contain errors or omissions.
[2021-07-08 14:51] VITALS: BP 151/86; PULSE 84; RESP 20; TEMP 36.6; O2SAT 97; BMI 31.0
[2021-07-08 14:53] VITALS: BP 150/85; PULSE 108; RESP 18; O2SAT 95
[2021-07-08 14:54] VITALS: BP 137/85; PULSE 82; RESP 18; O2SAT 96
[2021-07-08 15:05] VITALS: BP 151/81; PULSE 72; O2SAT 97
== END 2021-07-08 15:06 | disposition home or self-care (01) ==
LOC: SC.PAINP 14:41
PROVIDERS: PCP Internal Medicine Adolescent Medicine; Visit Provider Clinical Nurse Specialist Family Health
DX: M51.16 Intervertebral disc disorders with radiculopathy, lumbar region (principal); Z45.1 Encounter for adjustment and management of infusion pump; Z79.891 Long term (current) use of opiate analgesic
CPT/HCPCS: 80305; 80361; 80365; 95991; G0480

== ENCOUNTER → 2021-07-08 15:14 | Outpatient (CLI) | payer MEDICARE, BC, SELFPAY ==
[2021-07-08 16:26] LABS: Barbiturates Screen,Urine Negative ng/ml (<200)
[2021-07-08 16:27] LABS: Amphetamine/Metha Screen,Urine Negative ng/ml (<1000); Benzodiazepines Screen,Urine Negative ng/ml (<200)
[2021-07-08 16:28] LABS: Cocaine Screen,Urine Negative ng/ml (<300)
[2021-07-08 16:29] LABS: Cannabinoid Screen,Urine Negative ng/ml (<50); Methadone Screen,Urine Negative ng/ml (<300)
[2021-07-08 16:30] LABS: Opiate Screen,Urine Negative ng/ml (<300)
[2021-07-08 16:31] LABS: Phencyclidine Screen,Urine Negative ng/ml (<25)
[2021-07-21 16:36] LABS: Opiates Negative (Cutoff=100)
== END ==
PROVIDERS: Visit Provider Clinical Nurse Specialist Family Health
DX: Z79.899 Other long term (current) drug therapy (principal)
CPT/HCPCS: 80305; 80361; 80365; G0480

== ENCOUNTER → 2021-07-15 08:09 | Outpatient (CLI) | payer MEDICARE, BC, SELFPAY ==
[2021-07-15 08:12] LABS: Microscopic, Urine URINE MICROSCOPIC (MICROSCOPIC)
[2021-07-15 09:00] LABS: Chloride 105 mmol/L (98-107); Sodium 143 mmol/L (136-145)
[2021-07-15 09:01] LABS: Albumin Level 4.2 g/dl (3.5-5.0); Potassium 4.3 mmoL/L (3.5-5.1)
[2021-07-15 09:03] LABS: Anion Gap 9.3 mEq/L (5-15); Appearance,Urine CLEAR (Clear); Bilirubin,Urine Negative (Negative); Blood Urea Nitrogen 16 mg/dl (7-17); Blood, Urine TRACE-I (Negative); Carbon Dioxide 33 mmol/L (22.0-30.0); Color,Urine YELLOW (Yellow); Estimated Glomerular Filt Rate 55 ml/min (>60); GFR (African American) 67 ML/MIN (>60); Glucose,Urine (UA) Negative (Negative); Ketones,Urine Negative (Negative); Leukocyte Esterase,Urine Negative (Negative); Nitrate,Urine Negative (Negative); PH,Urine 5.5 (5.0-8.5); Protein,Urine Negative (Negative); Specific Gravity, Urine >= 1.030 (1.005-1.030); Urobilinogen,Urine 0.2 EU/dl (0.2)
[2021-07-15 09:04] LABS: Calcium 9.8 mg/dl (8.4-10.2); Glucose 94 mg/dl (74-100)
[2021-07-15 09:13] LABS: Creatinine,Urine Random 250 mg/dL (Not Estab.); Total Protein,Urine Random < 5.0 mg/dL (0.0-12.0)
== END ==
PROVIDERS: Visit Provider Internal Medicine Nephrology
DX: N18.30 Chronic kidney disease, stage 3 unspecified (principal); R80.9 Proteinuria, unspecified
CPT/HCPCS: 36415; 80069; 81001; 82570; 84155

== ENCOUNTER → 2021-07-29 07:20 | Outpatient (CLI) | payer MEDICARE, BC, SELFPAY | PROVIDERS: Visit Provider Neurological Surgery | DX: Z20.822 Contact with and (suspected) exposure to COVID-19 (principal) | CPT/HCPCS: C9803; U0003; U0005 ==

== ENCOUNTER → 2021-08-15 07:51 | Outpatient (CLI) | payer MEDICARE, BC, SELFPAY ==
[2021-08-15 08:25] LABS: Basophils # 0.1 K/mm3 (0-0.2); Eosinophils # 0.2 K/mm3 (0.0-0.4); Eosinophils % 2.9 % (0.1-12.0); Hematocrit 38.9 % (37.0-47.0); Hemoglobin 12.6 g/dL (12.2-16.2); Lymphocytes # 1.8 K/mm3 (0.7-4.5); Lymphocytes % 34.7 % (10-50); Mean Corpuscular HGB Conc 32.4 g/dL (31.8-35.4); Mean Corpuscular Hemoglobin 32.1 pg (27.0-31.2); Mean Corpuscular Volume 99.1 fl (81-99); Mean Platelet Volume 8.2 fl (7.4-10.4); Monocytes # 0.3 K/mm3 (0.1-1.0); Monocytes % 6.3 % (1.7-9.3); Neutrophils # 2.9 K/mm3 (1.8-7.8); Neutrophils % 55.1 % (37.0-80.0); Platelet Count 292 K/mm3 (142-424); Red Blood Count 3.93 M/mm3 (4.20-5.40); Red Cell Distribution Width 12.9 % (11.5-17.5); White Blood Count 5.2 K/mm3 (4.8-10.8)
[2021-08-15 09:19] LABS: Alanine Aminotransferase 16 U/L (12-78); Albumin Level 3.9 g/dl (3.5-5.0); Alkaline Phosphatase 122 U/L (38-126); Anion Gap 10.5 mEq/L (5-15); Aspartate Amino Transferase 34 U/L (14-36); Bilirubin,Indirect 0.3 mg/dL (0.0-0.9); Bilirubin,Total 0.3 mg/dl (0.2-1.3); Bilirubin,Unconjugated 0.3 mg/dL (0.0-1.1); Blood Urea Nitrogen 11 mg/dl (7-17); Calcium 9.9 mg/dl (8.4-10.2); Carbon Dioxide 34 mmol/L (22.0-30.0); Chloride 102 mmol/L (98-107); Cholesterol 144 mg/dl (140-200); Estimated Glomerular Filt Rate 55 ml/min (>60); GFR (African American) 67 ML/MIN (>60); Glucose 100 mg/dl (74-100); Potassium 4.5 mmoL/L (3.5-5.1); Sodium 142 mmol/L (136-145); Total Protein,Serum 6.5 g/dl (6.3-8.2); Triglycerides 215 mg/dl (30-150); VLDL Cholesterol 43 mg/dL (0-40)
[2021-08-15 09:31] LABS: Direct LDL Cholesterol 42.26 mg/dL (100-129)
[2021-08-15 10:28] LABS: Chol/HDL Ratio 2.6 (1-3.5); HDL Cholesterol 56 mg/dl (40-60)
== END ==
PROVIDERS: Visit Provider Internal Medicine Interventional Cardiology
DX: E78.00 Pure hypercholesterolemia, unspecified (principal)
CPT/HCPCS: 36415; 80048; 80061; 80076; 85025

== ENCOUNTER 2021-09-23 14:05 | Day surgery (SDC) | payer MEDICARE, BC, SELFPAY ==
[2021-09-23 14:09] VITALS: BP 138/78; PULSE 72; RESP 20; O2SAT 98
[2021-09-23 14:11] VITALS: BP 134/76; PULSE 80; RESP 18; O2SAT 98
[2021-09-23 14:14] VITALS: BP 143/83; PULSE 86; RESP 20; TEMP 36.6; O2SAT 97; BMI 31.3
[2021-09-23 14:30] VITALS: BP 135/71; PULSE 72; RESP 20; O2SAT 98
--- NOTE | 2021-09-23 15:07 | HMH.PMPROC ---
- Procedure Date: 09/23/21 Time: 15:07 Anesthesiologist:: Kimberly Gold MD Complications:: None Pre-procedure Diagnosis:: Degenerative disc disease lumbar spine with lumbar radiculopathy Post-procedure Diagnosis:: Same Indications for Procedure:: Patient is a very pleasant 65-year-old white female who presents today for intrathecal pump refill and reprogram. She currently has a pump with a flow [place] system on intrathecal fentanyl 6000 mcg/mL at 1300 mcg/day. She states that her chronic pain symptoms are adequately managed with her current pump settings. Today we will perform intrathecal pump refill and reprogram without any changes to her pump dose settings. Procedure Details:: Informed consent was obtained and the risks and benefits of the procedure was explained to the patient. The patient was taken to the procedure room. The pump was interrogated. The area over the pump was prepped using ChloraPrep. The pump was accessed with a 22-gauge needle. Approximately 3 mL's of the intrathecal solution was withdrawn and discarded. The pump was then refilled with 20 mL's of intrathecal fentanyl 6000 mcg/mL at 1300 mcg/day]. The pump was interrogated and the infusion was continued at fentanyl 6000 mcg/mL at 1300 mcg/day. The patient tolerated the procedure well with no complications. Next refill date is on [December 07, 2021]. Plan and Disposition:: We will follow-up with this patient on or before the next pump refill appointment make any pump adjustments at that time if indicated. I discussed with the patient the patient contact her clinic sooner should any issues arise. [facility] #[id number] was reviewed and appropriate.
[2021-09-23 20:38] LABS: Amphetamine/Metha Screen,Urine Negative ng/ml (<1000)
[2021-09-23 20:39] LABS: Barbiturates Screen,Urine Negative ng/ml (<200)
[2021-09-23 20:40] LABS: Benzodiazepines Screen,Urine Positive ng/ml (<200)
[2021-09-23 20:41] LABS: Cannabinoid Screen,Urine Negative ng/ml (<50); Cocaine Screen,Urine Negative ng/ml (<300)
[2021-09-23 20:42] LABS: Methadone Screen,Urine Negative ng/ml (<300); Opiate Screen,Urine Negative ng/ml (<300)
[2021-09-23 20:43] LABS: Phencyclidine Screen,Urine Negative ng/ml (<25)
[2021-10-11 09:02] LABS: Opiates Negative (Cutoff=100)
== END 2021-09-23 14:30 | disposition home or self-care (01) ==
LOC: SC.PAINP 14:06
PROVIDERS: PCP Internal Medicine Adolescent Medicine; Visit Provider Anesthesiology Pain Medicine
DX: M51.16 Intervertebral disc disorders with radiculopathy, lumbar region (principal); Z45.1 Encounter for adjustment and management of infusion pump
CPT/HCPCS: 80305; 80361; 80365; 95991; G0480

== ENCOUNTER → 2021-10-11 08:01 | Outpatient (CLI) | payer MEDICARE, BC, SELFPAY | PROVIDERS: Visit Provider Neurological Surgery | DX: Z01.812 Encounter for preprocedural laboratory examination (principal); Z11.52 Encounter for screening for COVID-19 | CPT/HCPCS: C9803; U0003; U0005 ==

== ENCOUNTER 2021-11-04 07:58 | Outpatient (RCR) | payer MEDICARE, BC, SELFPAY | END 2021-11-04 07:59 | disposition home or self-care (01) | LOC: OT 07:58 | PROVIDERS: PCP Internal Medicine Adolescent Medicine; Visit Provider Physical Medicine & Rehabilitation | DX: M54.2 Cervicalgia (principal) | CPT/HCPCS: 97166 ==

== ENCOUNTER 2022-01-05 12:41 | Emergency (ER) | payer MEDICARE, BC, SELFPAY ==
[2022-01-05 13:22] VITALS: BP 147/78; PULSE 69; RESP 17; TEMP 36.9; O2SAT 95; BMI 31.6
--- NOTE | 2022-01-05 13:54 | HMH.EDUTC ---
[facility] [place] Clinical Impression: Cough, Rash Sinusitis Qualifiers: Sinusitis location: unspecified location Chronicity: unspecified Qualified Code(s): J32.9 - Chronic sinusitis, unspecified Disposition: Home, Self-Care Condition on Discharge: Good Instructions: Sinusitis, Cough, DI for Sinusitis, Doxycycline, Methylprednisolone Additional Instructions: Monitor Temp, Over the counter Motrin or Tylenol as directed/as needed Tylenol every 4 hours and Motrin every 6 hours (as long as your family doctor has told you that you can take it) for fever or pain. and straight to ER if unable to lower temp less than 101.0 after medication given Take medication as prescribed Look around and make sure that nothing has changed to cause rash on face *Humidifier/Vaporizer Return if needed Follow up IMMEDIATELY for new or worsening symptoms or no Noticeable improvement over the next 48-72 hours. 911 for difficulty breathing or swallowing Prescriptions: Doxycycline Monohydrate [Doxycycline Bowman 100mg Tab] 100 mg PO BID 7 Days #14 tab Transmission Status: Received by [id number] methylPREDNISolone [Medrol 4mg tab] 4 mg PO DIRECTED #21 tab Prescription Printed Referrals: Marc Rodriguez MD [Primary Care Provider] - As needed Time of Disposition: 14:09 Medical Decision Making - Romeo Inquiry Pt receiving controlled substance: No Romeo was queried for this patient: No Vital Signs: 01/05/22 13:22 Temperature 98.5 F Temperature Source Oral Pulse Rate [Left Radial] 69 Respiratory Rate 17 Blood Pressure [Right Arm] 147/78 H Blood Pressure Mean [Right Arm] 101 02 Sat by Pulse Oximetry 95 Orders (Tests/Meds): ED MEDICATIONS Discontinued Medications Generic Name Dose Route Start Last Admin Trade Name Freq PRN Reason Stop Dose Admin Methylprednisolone Sodium Succinate 125 mg 01/05/22 14:01 Methylprednisolone Sod Succ 125mg Vial IM 01/05/22 14:02 ONCE ONE Medical Decision Narrative: medications discussed with pharmacy [facility] [place] - General Stated complaint: cough, itching Time Seen by Provider: 01/05/22 13:54 Source of Information: Patient Description of Symptoms (Recalled from Triage Doc. by RN): patient is here for cough, itching, headache. symptoms began 2 days ago but have been getting worse HEENT Symptoms (Recalled from RN notes): Yes Resp Symptoms (Recalled from RN notes): Yes Skin Symptoms (Recalled from RN notes): Yes MS Symptoms (Recalled from RN notes): No Functional Status (Recalled from RN notes): wnl - History of Present Illness Provider Complaint: Patient states that she has been having some itching on her face and unsure if she may have changed something and causing her to itch but she has also been having cough, sinus congestion and pressure an scratchy throat States that she came in to get checked - Related Data Home Medications Medication Instructions Recorded Confirmed Cholecalciferol (Vitamin D3) 50,000 unit PO DIRECTED 10/09/17 09/23/21 [Vitamin D3 50,000 unit Cap] Eszopiclone [Lunesta] 3 mg PO HS 10/09/17 09/23/21 Lutein 20 mg PO DAILY 10/09/17 09/23/21 Quetiapine Fumarate [Seroquel] 300 mg PO HS 10/09/17 09/23/21 Sodium Bicarbonate [Sodium 650 mg PO BID 10/09/17 09/23/21 Bicarbonate 650mg Tablet] cycloSPORINE [Restasis] 1 each OP DAILY 10/09/17 09/23/21 Albuterol Sulfate [Ventolin HFA 2 puffs PO Q6HP PRN 10/19/17 09/23/21 Inhaler] Duloxetine HCl [Cymbalta 30mg 30 mg PO HS 02/23/18 09/23/21 capsule] Cyanocobalamin (Vitamin B-12) 1,000 mcg IM WEEKLY 01/19/19 09/23/21 [Cyanocobalamin 1,000mcg/mL Vial] Donepezil HCl 23 mg PO DAILY 10/14/19 09/23/21 Hydrocortisone [Cortef] 5 mg PO BID 10/14/19 09/23/21 Levothyroxine Sodium 100 mcg PO DAILY 10/14/19 09/23/21 [Levothyroxine 100mcg (0.1MG) Tab] Memantine HCl [Memantine 10mg 10 mg PO BID 10/14/19 09/23/21 Tablet] Montelukast Sodium [Singulair 10mg 10 mg PO PM
[2022-01-05 14:27] VITALS: BP 147/78; PULSE 69; RESP 17; TEMP 36.9
== END 2022-01-05 14:28 | disposition home or self-care (01) ==
PROVIDERS: Emergency Provider Nurse Practitioner; PCP Internal Medicine Adolescent Medicine
DX: J32.9 Chronic sinusitis, unspecified (principal); I10 Essential (primary) hypertension; K21.9 Gastro-esophageal reflux disease without esophagitis; Z88.8 Allergy status to other drugs, medicaments and biological substances
CPT/HCPCS: 96372; 99212; G0463

== ENCOUNTER → 2022-02-25 08:13 | Outpatient (POV) | payer MEDICARE, BC, SELFPAY ==
[2022-02-25 08:22] VITALS: BP 136/79; PULSE 109; RESP 20; TEMP 36.4; O2SAT 95; BMI 31.3
--- NOTE | 2022-02-25 08:28 | HMH.PAINSOAP ---
[facility] Pain Management SOAP Note Subjective:: Patient is a pleasant 65-year-old female who presents today for intrathecal pain pump follow-up. We are currently treating the patient for degenerative disc disease of lumbar spine with lumbar radiculopathy symptoms. Today she states her pain as a 8 out of 10. She states the pain is in her low back describes it as a sharp, achy sensation that radiates to her tailbone and into her hips. Patient denies any new trauma or injuries to the site. Patient has tried [id number] Tylenol with minimal relief. She also has used heat and Biofreeze with minimal relief. Patient is managed currently with intrathecal fentanyl 6000 mcg/ml per mL at 1430 mcg/day. Today she requests a increase in her pain pump medication. Her Romeo is [phone]. It has been reviewed and is appropriate. Review of systems; General: No recent weight changes, no fever, no sleep disturbances Respiratory: No cough, no shortness of air, no recurring pulmonary infections Cardiovascular/peripheral vascular: No chest pain, no palpitations, no edema, no shortness of breath Gastrointestinal: No new onset incontinence, normal bowel movements reported Genitourinary: No new onset incontinence Musculoskeletal: Low back pain, bilateral hip pain Psychiatric: Normal mood/affect Neurological: Denies weakness in extremities, denies balance issues Objective:: Physical exam: General: Alert and oriented x3, no acute distress pleasant and cooperative Lungs: Respirations even and unlabored, symmetrical chest expansion Eyes: PERRL Musculoskeletal: Positive point tenderness at low back bilateral hips. Flexion and extension of lumbar spine limited. Neurological: Speech clear, no gross sensory deficit Assessment:: Degenerative disc disease of lumbar spine with lumbar radiculopathy symptoms Plan:: Patient is having significant pain at today's visit. Patient had positive point tenderness along her lumbar spine and bilateral hips. We will increase her pump by 10% today's visit. Her new rate will be fentanyl 6000 mcg/mL with a daily dose of 1570 mcg/day. patient will return to clinic in 2 weeks for follow-up and reevaluation of symptoms. Has been instructed to contact the clinic with any concerns before the next appointment. Dr. Kidd has reviewed this note and agrees with this plan of care. This note is dictated using voice recognition software and may contain errors or omissions. [facility] History I have reviewed the patient's past medical history: Yes Medical History: Reports:: Asthma, Coronary Artery Disease, Depression, Gastroesophageal Reflux Disease(GERD), Hyperlipidemia, Hypertension, Renal Disease, Seizures Denies:: Cancer, Diabetes Mellitus Type 1, Diabetes Mellitus Type 2, Internal Pacemaker, MRSA *Have you ever received a pneumonia vaccine?: Yes *Have you received a flu vaccine this season?: Yes Other Medical History: Reports: Anemia, Arthritis, Cataracts, Fibromyalgia, Glaucoma (bilateral), Hypothyroidism, Sinus Problems, Thyroid Disease. Denies: Blood Transfusion Reaction Laterality Cases: Left: Carpal Tunnel Release, Right: Total Hip Replacement, Other, Bilateral: Arthroscopy Knee, Breast Biopsy, Lumpectomy Other Surgeries: Yes: Appendectomy, Cardiac Catheterization, Cholecystectomy, Colonoscopy, Colon Resection, EGD, Hysterectomy-Total, Hysterectomy-Partial, Ureter Stent, Other (pain pump implant/neursitmulator implant). No: Pacemaker Amputation: No Fractures: Yes ((R) humerus, (L) wrist,) - *Social History Smoking Status: Never smoker Tobacco Type: cigarettes Alcohol Intake: never Substance Use Type: denies use *Occupational Status:: other Housing: house Household Members: spouse *Travel in the last 8 weeks: None - Psychiatric History Pschychiatric History:: Reports:: Depression Family Hx:: Unable to obtain
--- NOTE | 2022-02-25 11:26 | HMH.PMPROC ---
- Procedure Date: 02/25/22 Time: 08:43 Anesthesiologist:: Emir Rubalcava CRNA Complications:: None Pre-procedure Diagnosis:: Degenerative disc disease of lumbar spine with lumbar radiculopathy symptoms Post-procedure Diagnosis:: Same Indications for Procedure:: Patient is a pleasant 65-year-old female who presents today for intrathecal pain pump follow-up. We are currently treating the patient for degenerative disc disease of lumbar spine with lumbar radiculopathy symptoms. Today she states her pain as a 8 out of 10. She states the pain is in her low back describes it as a sharp, achy sensation that radiates to her tailbone and into her hips. Patient denies any new trauma or injuries to the site. Patient has tried [id number] Tylenol with minimal relief. She also has used heat and Biofreeze with minimal relief. Patient is managed currently with intrathecal fentanyl 6000 mcg/ml per mL at 1430 mcg/day. Today she requests a increase in her pain pump medication. Her Romeo is [id number]. It has been reviewed and is appropriate. Procedure Details:: Patient's pump was interrogated and increased 10%. The noon dose is fentanyl 6000 mcg/mL with a daily dose of 1570 mcg/day. Patient's pump was interrogated with the new settings. Plan and Disposition:: Patient is a pleasant 65-year-old female who presents today for intrathecal pain pump follow-up. We are currently treating the patient for degenerative disc disease of lumbar spine with lumbar radiculopathy symptoms. Today she states her pain as a 8 out of 10. She states the pain is in her low back describes it as a sharp, achy sensation that radiates to her tailbone and into her hips. Patient denies any new trauma or injuries to the site. Patient has tried [id number]-cwpkwti Tylenol with minimal relief. She also has used heat and Biofreeze with minimal relief. Patient is managed currently with intrathecal fentanyl 6000 mcg/ml per mL at 1430 mcg/day. Today she requests a increase in her pain pump medication. Her Romeo is [id number]. It has been reviewed and is appropriate. Review of systems; Patient is having significant pain at today's visit. Patient had positive point tenderness along her lumbar spine and bilateral hips. We will increase her pump by 10% today's visit. Her new rate will be fentanyl 6000 mcg/mL with a daily dose of 1570 mcg/day. patient will return to clinic in 2 weeks for follow-up and reevaluation of symptoms. Patient was discharged with no complications. Has been instructed to contact the clinic with any concerns before the next appointment. Dr. Kidd has reviewed this note and agrees with this plan of care. This note is dictated using voice recognition software and may contain errors or omissions.
== END ==
PROVIDERS: PCP Internal Medicine Adolescent Medicine; Visit Provider Nurse Anesthetist, Certified Registered
DX: M51.16 Intervertebral disc disorders with radiculopathy, lumbar region (principal)
CPT/HCPCS: 62368; 99212; G0463

== ENCOUNTER 2022-02-27 08:00 | Outpatient (RCR) | payer MEDICARE, BC, SELFPAY | END 2022-02-27 08:05 | disposition home or self-care (01) | LOC: PT 08:00 | PROVIDERS: PCP Internal Medicine Adolescent Medicine; Visit Provider Physical Medicine & Rehabilitation | DX: M54.2 Cervicalgia (principal) | CPT/HCPCS: 97010; 97014; 97035; 97110; 97163; 97164; G0283 ==

== ENCOUNTER → 2022-03-13 08:52 | Outpatient (POV) | payer MEDICARE, BC, SELFPAY ==
[2022-03-13 09:14] VITALS: BP 140/74; PULSE 73; RESP 20; O2SAT 98; BMI 31.3
--- NOTE | 2022-03-13 09:27 | HMH.PMPROC ---
- Procedure Date: 03/13/22 Time: 09:15 Anesthesiologist:: Amna Wood APRN Complications:: None Pre-procedure Diagnosis:: Generative disc disease of lumbar spine with lumbar radiculopathy symptoms and postlaminectomy syndrome lumbar spine Post-procedure Diagnosis:: Same Indications for Procedure:: Patient is a pleasant 66 who presents today for follow-up. We are currently treating the patient for degenerative disc disease of lumbar spine with lumbar radiculopathy symptoms and postlaminectomy syndrome lumbar spine. Today she rates her pain a 6 out of 10. She states it is all in her low back that radiates to her tailbone and describes it as a aching, throbbing sensation. She states that about 4 weeks ago she was getting up off the commode and had a sharp catching sensation in her low back. She stated she has used Tylenol [id number]-[id number] with minimal relief. She is also gotten from her primary care provider a dose of steroids and Flexeril that provided minimal improvement. She has used topical application of Biofreeze and icy hot with minimal relief. She stated that she is scheduled for a myelogram for this issue. It was scheduled for earlier this week however they are now rescheduling it. Patient states there is supposed to call with the new date. Patient is currently managed with an intrathecal patient is a pleasant with fentanyl 6000 mcg/mL with a daily dose of 1570 mcg/day. She has requesting an increase at today's visit. Her Romeo is [phone]. It has been reviewed and appropriate. Physical Exam: General: Alert and oriented x3, no acute distress, pleasant and cooperative Lungs: Respirations even and unlabored, symmetrical chest expansion Eyes: PERRL Musculoskeletal: Flexion and extension of lumbar [spine] somewhat guarded secondary to pain, [antalgic gait noted] Neurological: Speech clear, no gross sensory deficit Procedure Details:: Informed consent was obtained and the risk and benefits of the procedure were explained to the patient. Patient was taken to the procedure room where noninvasive monitoring was placed including noninvasive blood pressure cuff and pulse oximeter. Patient's pump was interrogated and was reprogrammed to fentanyl 6000 mcg/mL with a daily dose of 1600 mcg/mL. The patient tolerated the procedure well with no complications. Plan and Disposition:: Patient has had worsening low back pain that radiates to her tailbone over the last 4 weeks. I will order the patient Flexeril and supply a 2-week dose of this medication. I did give the patient a 2% increase at today's visit with her intrathecal pain pump. Patient will follow-up in 2 weeks for reevaluation of symptoms. Patient has been instructed to contact the clinic with any concerns before the next appointment. Dr. Kidd has reviewed this note and agrees with this plan of care. This note was dictated using voice recognition software and make contain errors or omissions. -- It Is medically necessary for this patient to continue to have their intrathecal pump refilled at regular intervals. This patient had an intrathecal pain pump implanted after meeting criteria of chronic intractable pain for greater than 3 months and failing conservative treatments. Patient has committed and been compliant to the treatment plan and all planned follow up care. Since implantation of the intrathecal pain pump, the patient has had decreased pain and been more functional. Oral medications have been reduced including intake of oral opioids. Patient continues to do well with intrathecal therapy with decrease in pain symptoms and increase in functional status. Stopping intrathecal medications can lead to life threatening withdrawal, seizures, cardiac arrest, severe pain, and possible . Pumps that are not refilled at regular intervals can be damages and cause and need for replacement. We continually titrate dose and concentration to optimize pain relief and function. We a
== END ==
PROVIDERS: PCP Internal Medicine Adolescent Medicine; Visit Provider Nurse Practitioner Family
DX: M51.16 Intervertebral disc disorders with radiculopathy, lumbar region (principal); M96.1 Postlaminectomy syndrome, not elsewhere classified
CPT/HCPCS: 62368

== ENCOUNTER → 2022-04-01 07:26 | Outpatient (CLI) | payer MEDICARE, BC, SELFPAY ==
[2022-04-01 07:36] LABS: Microscopic, Urine URINE MICROSCOPIC (MICROSCOPIC)
[2022-04-01 09:03] LABS: Basophils % 0.8 % (0.1-2.0); Eosinophils # 0.1 K/mm3 (0.0-0.4); Eosinophils % 2.6 % (0.1-12.0); Hematocrit 39.3 % (37.0-47.0); Lymphocytes # 1.5 K/mm3 (0.7-4.5); Lymphocytes % 38.2 % (10-50); Mean Corpuscular HGB Conc 30.5 g/dL (31.8-35.4); Mean Corpuscular Hemoglobin 30.1 pg (27.0-31.2); Mean Corpuscular Volume 98.6 fl (81-99); Mean Platelet Volume 7.6 fl (7.4-10.4); Monocytes # 0.3 K/mm3 (0.1-1.0); Monocytes % 7.8 % (1.7-9.3); Neutrophils % 50.7 % (37.0-80.0); Platelet Count 226 K/mm3 (142-424); Red Blood Count 3.98 M/mm3 (4.20-5.40); Red Cell Distribution Width 13.5 % (11.5-17.5)
[2022-04-01 09:05] LABS: Appearance,Urine CLEAR (Clear); Bilirubin,Urine Negative (Negative); Blood, Urine TRACE-L (Negative); Color,Urine YELLOW (Yellow); Glucose,Urine (UA) Negative (Negative); Ketones,Urine Negative (Negative); Leukocyte Esterase,Urine Negative (Negative); Nitrate,Urine Negative (Negative); Protein,Urine Negative (Negative); Specific Gravity, Urine 1.025 (1.005-1.030); Urobilinogen,Urine 0.2 EU/dl (0.2)
[2022-04-01 09:15] LABS: Creatinine,Urine Random 136 mg/dL (Not Estab.)
[2022-04-01 09:22] LABS: Albumin Level 3.7 g/dl (3.5-5.0); Anion Gap 8.3 mEq/L (5-15); Blood Urea Nitrogen 16 mg/dl (7-17); Calcium 9.2 mg/dl (8.4-10.2); Carbon Dioxide 31 mmol/L (22.0-30.0); Chloride 106 mmol/L (98-107); Estimated Glomerular Filt Rate 55 ml/min (>60); GFR (African American) 67 ML/MIN (>60); Glucose 92 mg/dl (74-100); Phosphorous 4.3 mg/dl (2.5-4.5); Potassium 4.3 mmoL/L (3.5-5.1); Sodium 141 mmol/L (136-145)
[2022-04-01 09:29] LABS: Bacteria,Urine Trace /lpf; RBC,Urine Occasional #/hpf (0-3); Squamous Epithelial Cell,Urine Occasional #/hpf (0-5); WBC,Urine Occasional #/hpf (0-3)
[2022-04-01 09:34] LABS: Intact Parathyroid Hormone 107.8 pg/mL (7.5-53.5)
[2022-04-01 09:39] LABS: 25-OH Vitamin D, Total 108 ng/mL (30-100)
== END ==
PROVIDERS: Internal Medicine Nephrology; PCP Internal Medicine Adolescent Medicine; Visit Provider Internal Medicine Nephrology
DX: N18.2 Chronic kidney disease, stage 2 (mild) (principal); E55.9 Vitamin D deficiency, unspecified; N25.81 Secondary hyperparathyroidism of renal origin
CPT/HCPCS: 36415; 80069; 81001; 82306; 82570; 83970; 84155; 85025

== ENCOUNTER → 2022-04-09 08:33 | Outpatient (POV) | payer MEDICARE, BC, SELFPAY ==
[2022-04-09 08:56] VITALS: BP 122/78; PULSE 78; RESP 18; TEMP 36.3; O2SAT 96; BMI 31.3
--- NOTE | 2022-04-09 09:14 | A.OFFVIS_ITS ---
[facility] Pain Management SOAP Note Subjective:: Patient is a pleasant 66-year-old female who presents today for follow-up. We are currently treating the patient for degenerative disc disease of lumbar spine with lumbar radiculopathy symptoms, postlaminectomy syndrome lumbar spine. Today the patient rates her pain an 8 out of 10 she states it is primarily in her low back around her tailbone that radiates to her hips and down bilateral legs. She describes this as a aching, burning sensation that is worse with increased activity. Patient states a couple months ago she was at home and was getting off the commode when she felt sharp pain in her low back and she states this is continued since. She is currently managed with a intrathecal pain pump of fentanyl 6000 mcg/mL with a daily dose of 1600 mcg/day. Patient states this dosage had been working however her pain has significantly increased. Patient states we did try and order the compounding cream for her in the past however her insurance will not cover it. Her Romeo is [phone]. It has been reviewed and appropriate. Review of Systems: General: No recent weight changes, no fever, no sleep disturbances Respiratory: No cough, no shortness of air, no recurring pulmonary infections Cardiovascular/peripheral vascular: No chest pain, no palpitations, no edema, no shortness of breath Gastrointestinal: No new onset incontinence, normal bowel movements reported Genitourinary: No new onset incontinence Musculoskeletal: Low back pain, bilateral hip and leg pain Psychiatric: [Normal mood/affect] Neurological: [Denies weakness in extremities], [denies balance issues] Objective:: Physical Exam: General: Alert and oriented x3, no acute distress, pleasant and cooperative Lungs: Respirations even and unlabored, symmetrical chest expansion Eyes: PERRL Musculoskeletal: Flexion and extension of lumbar [spine] somewhat guarded secondary to pain, [antalgic gait noted] Neurological: Speech clear, no gross sensory deficit Assessment:: Degenerative disc disease of lumbar spine with lumbar radiculopathy symptoms, postlaminectomy syndrome lumbar spine Plan:: Patient has worsening low back pain that radiates into her bilateral lower extremities at today's visit. I have discussed with the patient regarding trying a lumbar epidural injection. Risk and benefits were discussed with the patient. She would like to proceed forward with this injection. She is not currently on any blood thinners. We will schedule the patient for a lumbar epidural steroid injection at L4-L5 at today's visit. If this injection does not give significant improvement of her symptoms we will look into doing a adjustment on her pump settings. Patient has been instructed to contact the clinic with any concerns before the next appointment. Dr. Kidd has reviewed this note and agrees with this plan of care. This note was dictated using voice recognition software and make contain errors or omissions. PFSH PFSH Social History Smoking Status: Never smoker second hand exposure: No alcohol intake: never substance use type: denies use current occupational status: unemployed Travel in the last 8 weeks: None household members: spouse housing: house education level: high school current occupation: retired from [employer] current occupational exposures/hazards: No caffeine: Yes
== END ==
PROVIDERS: PCP Internal Medicine Adolescent Medicine; Visit Provider Nurse Practitioner Family
DX: M51.16 Intervertebral disc disorders with radiculopathy, lumbar region (principal); M96.1 Postlaminectomy syndrome, not elsewhere classified
CPT/HCPCS: 62368; 99212; 99213; G0463

== ENCOUNTER 2022-04-15 13:21 | Day surgery (SDC) | payer MEDICARE, BC, SELFPAY ==
[2022-04-15 13:33] VITALS: BP 127/70; PULSE 92; RESP 18; TEMP 37; O2SAT 95; BMI 31.3
[2022-04-15 13:49] VITALS: BP 138/66; PULSE 90; RESP 18; O2SAT 95
[2022-04-15 13:50] VITALS: BP 138/66; PULSE 84; RESP 18; O2SAT 96
--- NOTE | 2022-04-15 13:52 | EXP.PAIN.PRO ---
Procedure Date: 04/15/22 Time: 13:52 Anesthesiologist:: Emir Rubalcava CRNA Complications:: None Pre-procedure Diagnosis:: Degenerative disc disease lumbar spine multilevels. Lumbar postlaminectomy syndrome. Lumbar radiculopathy symptoms. Post-procedure Diagnosis:: Same Indications for Procedure:: This patient is a pleasant 66-year-old female that we have been treating for quite some time for chronic low back pain secondary to degenerative disc disease lumbar spine multilevels. Lumbar postlaminectomy syndrome. Lumbar spine radiculopathy. Patient is currently being managed with an intrathecal pain pump. Fentanyl 6000 mcg/mL. Patient's daily dose is 1600 mcg/day. Patient having some low back pain that she describes as worse than usual. Patient also complains of bilateral hip and leg radicular symptoms at times. Procedure Details:: Procedure: Lumbar epidural steroid injection under fluoroscopy Informed consent was obtained and the risks and benefits of the procedure were explained to the patient. The patient was taken to the procedure room and noninvasive monitors placed, including noninvasive blood pressure cuff and pulse oximeter. The back was viewed using C-arm Fluoroscopy and prepped using Betadine as a cleansing solution and the L3-4 interspace was palpated. Skin and subcutaneous tissues were anesthetized using lidocaine 1.5% and a 25-gauge needle. After this, an 18-gauge Touhy epidural needle was placed into the L3-4 interspace and advanced using fluoroscopic guidance and loss of resistance to air until the epidural space was encountered. After confirmation of needle placement in the epidural space, with dye, a solution containing lidocaine 1.5%, 4 mL and Depo-Medrol 80 mg were incrementally injected into the lumbar epidural space. The patient tolerated the procedure well with no complications. The patient was observed in the Pain Clinic and then discharged home neurologically intact. Plan and Disposition:: Patient was discharged from the clinic without incident
[2022-04-15 14:10] VITALS: BP 120/74; PULSE 82; RESP 20; O2SAT 95
== END 2022-04-15 14:10 | disposition home or self-care (01) ==
PROVIDERS: PCP Internal Medicine Adolescent Medicine; Visit Provider Nurse Anesthetist, Certified Registered
DX: M51.16 Intervertebral disc disorders with radiculopathy, lumbar region (principal); M96.1 Postlaminectomy syndrome, not elsewhere classified
CPT/HCPCS: 62323; J1040

== ENCOUNTER → 2022-04-25 10:21 | Outpatient (POV) | payer MEDICARE, BC, SELFPAY ==
[2022-04-25 10:45] VITALS: BP 127/78; PULSE 74; RESP 18; TEMP 36.6; O2SAT 98; BMI 31.3
--- NOTE | 2022-04-25 11:34 | EXP.PAIN.SOA ---
[facility] Pain Management SOAP Note Subjective:: This patient is a pleasant 66-year-old white female who we have been treating for low back pain with lumbar radicular symptoms. She did recently have a lumbar epidural steroid injection which helped tremendously with her back pain however she still has pain over the coccyx and down both legs all the way to the feet. She also does have an intrathecal fentanyl pain pump in place currently going at 1600 mcg/day. The epidural steroid injection did not help much with her pain in the coccyx and her radicular symptoms. I have talked to her about a caudal epidural steroid injection plus adding bupivacaine to her intrathecal infusion to see if this will help with her symptoms. Objective:: Alert and oriented x3 no acute distress. Patient does have an antalgic gait. Motor strength of the lower extremities is 5/5. There is no gross sensory deficit. Assessment:: Degenerative disc disease of lumbar spine with lumbar radiculopathy symptoms with postlaminectomy syndrome lumbar spine with coccydynia Plan:: We will seek approval and plan on a caudal epidural steroid injection to help with her coccydynia. We will also plan on adding bupivacaine to her pain pump mixture at 5 mg/mL to run as a secondary to help with her radicular symptoms. She is under home refill with [facility] so we will relay this information to her [facility] home health nurse. [facility] Medical History (Updated 04/15/22 @ 13:39 by Nayeli Montoya RN) History of back pain History of back pain Social History (Updated 04/15/22 @ 13:40 by Nayeli Montoya RN) Smoking Status: Never smoker second hand exposure: No alcohol intake: never substance use type: denies use current occupational status: other Travel in the last 8 weeks: None household members: spouse housing: house education level: high school current occupation: retired from [employer] current occupational exposures/hazards: No caffeine: Yes
[2022-04-25 12:05] LABS: Blood Urea Nitrogen 23 mg/dl (7-17); Creatinine Clearance Estimated 77 mL/min (50-200); Estimated Glomerular Filt Rate 62 ml/min (>60); GFR (African American) 75 ML/MIN (>60)
== END ==
PROVIDERS: Ophthalmology; PCP Internal Medicine Adolescent Medicine; Visit Provider Anesthesiology
DX: M51.16 Intervertebral disc disorders with radiculopathy, lumbar region (principal); M96.1 Postlaminectomy syndrome, not elsewhere classified; M53.3 Sacrococcygeal disorders, not elsewhere classified
CPT/HCPCS: 36415; 62368; 82565; 84520; 99212; G0463

== ENCOUNTER → 2022-04-28 08:54 | Outpatient (CLI) | payer MEDICARE, BC, SELFPAY ==
--- NOTE | 2022-04-28 08:57 | MR_ITS ---
FINAL REPORT TECHNIQUE: Multiplanar MR, without and with gadolinium enhancement CLINICAL HISTORY: PTOSIS OF LEFT EYELID. left sided eye droop and pain. left sided face numbness. symptoms x3 wks. 17ml prohance given. COMPARISON: October 03, 2019 FINDINGS: Small area of encephalomalacia in the right occipital lobe, similar. Diffusion sequences show no signal abnormality to indicate acute infarct. No mass, hemorrhage or edema is seen. Ventricles are normal. Major vascular flow voids are intact. Following contrast administration, no mass or abnormal enhancement is seen. IMPRESSION: Small area of encephalomalacia in the right occipital lobe, similar to prior. No orbital mass. Reviewed, Interpreted and Dictated by Chase Olmos MD Transcribed by Tonny Espana Authenticated and [facility]
== END ==
PROVIDERS: PCP Internal Medicine Adolescent Medicine; Visit Provider Ophthalmology
DX: H02.402 Unspecified ptosis of left eyelid (principal)
CPT/HCPCS: 70553; A9576

== ENCOUNTER 2022-04-29 09:15 | Day surgery (SDC) | payer MEDICARE, BC, SELFPAY ==
[2022-04-29 09:36] VITALS: BP 159/72; PULSE 72; RESP 18; TEMP 36; O2SAT 97; BMI 31.3
[2022-04-29 09:51] VITALS: BP 123/74; RESP 18; O2SAT 98
[2022-04-29 09:53] VITALS: BP 127/72; PULSE 68; RESP 18; O2SAT 98
[2022-04-29 10:04] VITALS: BP 107/61; PULSE 63; RESP 18; O2SAT 100
--- NOTE | 2022-04-29 10:41 | EXP.PAIN.PRO ---
Procedure Date: 04/29/22 Time: 10:30 Anesthesiologist:: Emir Rubalcava CRNA Complications:: None Pre-procedure Diagnosis:: Degenerative disc disease lumbar spine multilevels. Lumbar radiculopathy symptoms. Lumbar postlaminectomy syndrome. Lumbar post fusion syndrome Post-procedure Diagnosis:: Same. Indications for Procedure:: Patient is a pleasant 66-year-old female that comes our clinic today for caudal epidural steroid injection. Patient has had lumbar epidural steroid injections with minimal relief. Patient's had lumbar fusion. Patient has degenerative disc disease lumbar spine multilevels. Patient has lumbar radicular symptoms. Procedure Details:: Details of the procedure were explained to the patient. The patient taken the procedure room placed in the prone position. The area over the lumbosacral area was cleansed using chlorhexidine as a cleansing solution. Using fluoroscopy guidance and a lateral position the caudal epidural space was accessed using a 22-gauge 3-1/2 inch spinal needle. After negative aspiration 0.5 cc of contrast dye was injected with cephalad flow and no extravasation. At this time after negative aspiration a solution containing 5 cc of normal saline, 1 cc of 1% lidocaine, 80 mg of Depo-Medrol was injected slowly. Patient tolerated the procedure without difficulty. There are no complications. Plan and Disposition:: Patient was discharged without incident.
== END 2022-04-29 10:04 | disposition home or self-care (01) ==
PROVIDERS: PCP Internal Medicine Adolescent Medicine; Visit Provider Nurse Anesthetist, Certified Registered
DX: M51.16 Intervertebral disc disorders with radiculopathy, lumbar region (principal); M96.1 Postlaminectomy syndrome, not elsewhere classified
CPT/HCPCS: 62323; J1040; Q9966

== ENCOUNTER → 2022-05-19 11:22 | Outpatient (POV) | payer MEDICARE, BC, SELFPAY ==
[2022-05-19 12:04] VITALS: BP 97/63; PULSE 85; RESP 18; TEMP 36.3; O2SAT 97; BMI 31.3
--- NOTE | 2022-05-19 13:15 | EXP.PAIN.PRO ---
Procedure Date: 05/19/22 Time: 13:07 Anesthesiologist:: Amna Wood APRN Complications:: None Pre-procedure Diagnosis:: Degenerative disc disease of lumbar spine multilevels with lumbar radiculopathy symptoms, lumbar postlaminectomy syndrome, lumbar fusion syndrome Post-procedure Diagnosis:: Same Indications for Procedure:: Patient is a pleasant 66-year-old female who presents today for intrathecal pain pump adjustment and reprogram. The patient is being treated for degenerative disc disease lumbar spine multilevels with lumbar radiculopathy symptoms, postlaminectomy syndrome, lumbar fusion syndrome. Patient recently had a caudal epidural on 04/29/2022. Patient states that she had about 25% relief following this injection lasting 3 to 4 days. Today she rates her pain a 6 out of 10. She states the pain is primarily in her low back and bilateral lower extremities. Patient describes this as a burning, numbness sensation that is almost constant. Patient has tried gabapentin and Lyrica in the past however it caused significant confusion, delusions, memory issues. Patient is on Flexeril that helps provide some relief. Patient is also on medication for restless leg syndrome. Patient did try a spinal cord stimulator trial roughly 2 years ago however it only provided about 30% relief. Patient is currently managed with fentanyl 6000 mcg/mL with a daily dose of 1600 mcg/day and bupivacaine 5 mg/mL with a daily dose of 1.3333 mg/day. Patient denies any side effects from this medication. She states this medication does adequately help manage her back pain however does not do anything for her leg pain. Her Romeo is [id number]. It has been reviewed and appropriate. Physical exam General: Alert and oriented x3, no acute distress, pleasant and cooperative Lungs: Respirations even and unlabored, symmetrical chest expansion Eyes: PERRL Musculoskeletal: Flexion and extension of lumbar [spine] somewhat guarded secondary to pain, [antalgic gait noted] Neurological: Speech clear, no gross sensory deficit Procedure Details:: Informed consent was obtained and the risk and benefits of the procedure were explained to the patient. Patient was taken to the procedure room where noninvasive monitoring was placed including noninvasive blood pressure cuff and pulse oximeter. Patient's pump was interrogated and was reprogrammed to fentanyl 6000 mcg/mL with a daily dose of 1650 mcg/day and bupivacaine 5 mg/mL with a daily dose of 1.375 mg/day. The patient tolerated the procedure well with no complications. Plan and Disposition:: Patient continues to have significant pain in her low back and bilateral lower extremities. Patient did have limited range of motion of her lumbar spine during today's visit. Patient will follow-up in 2 weeks following this adjustment with Dr. Kidd. Patient has been instructed to contact the clinic with any concerns before the next appointment. Dr. Kidd has reviewed this note and agrees with this plan of care. This note was dictated using voice recognition software and make contain errors or omissions. -- It Is medically necessary for this patient to continue to have their intrathecal pump refilled at regular intervals. This patient had an intrathecal pain pump implanted after meeting criteria of chronic intractable pain for greater than 3 months and failing conservative treatments. Patient has committed and been compliant to the treatment plan and all planned follow up care. Since implantation of the intrathecal pain pump, the patient has had decreased pain and been more functional. Oral medications have been reduced including intake of oral opioids. Patient continues to do well with intrathecal therapy with decrease in pain symptoms and increase in functional status. Stopping intrathecal medications can lead to life threatening withdrawal, seizures, cardiac arrest, severe pain, and possible . Pumps that are not refilled at regular i
== END | disposition home or self-care (01) ==
PROVIDERS: PCP Internal Medicine Adolescent Medicine; Visit Provider Student in an Organized Health Care Education/Training Program
DX: M51.16 Intervertebral disc disorders with radiculopathy, lumbar region (principal); M96.1 Postlaminectomy syndrome, not elsewhere classified; Z79.899 Other long term (current) drug therapy
CPT/HCPCS: 99212; G0463

== ENCOUNTER → 2022-05-30 10:35 | Outpatient (POV) | payer MEDICARE, BC, SELFPAY ==
[2022-05-30 10:49] VITALS: BP 147/70; PULSE 73; RESP 18; TEMP 36.8; O2SAT 99; BMI 31.3
--- NOTE | 2022-05-30 15:07 | A.OFFVIS_ITS ---
[facility] Pain Management SOAP Note Subjective:: Patient is a pleasant 66-year-old white female who currently has an intrathecal fentanyl/bupivacaine pain pump in place. She is not getting adequate relief of her low back pain and left leg radicular symptoms from her pain pump. She has increasing pain over her tailbone and down her left leg. She has had previous back surgery in October of this year. She has seen her surgeon and there is no further surgical intervention. We have tried injections adjusting her pump with multiple medications all of which did not provide her adequate pain relief. She has previously tried a spinal cord stimulator several years ago. Given her change in symptoms and the fact that she had surgery this past October with new left leg radicular symptoms I have talked to her about retrialing spinal cord stimulation. She is amenable to this. We will plan on spinal cord stimulator trial with [employer] system. Objective:: Alert and oriented x3 no acute distress. Patient does have an antalgic gait. Motor strength of the lower extremities is 5/5. There is no gross sensory deficit. Assessment:: Postlaminectomy syndrome lumbar spine with lumbar radiculopathy symptoms Plan:: We will seek approval for spinal cord stimulator trial. This will be to help with low back pain tailbone pain and left leg pain. This will be a [employer] system. [facility] Medical History (Updated 04/29/22 @ 09:40 by Priscila Harris RN) History of back pain History of back pain Ileus, unspecified Surgical History (Updated 04/29/22 @ 09:39 by Priscila Harris RN) History of appendectomy History of cholecystectomy History of colectomy History of hysterectomy History of lumbar surgery Hx of cervical spine surgery Family History (Updated 04/29/22 @ 09:38 by Priscila Harris RN) No significant family history Social History (Updated 04/29/22 @ 09:38 by Priscila Harris RN) Smoking Status: Never smoker second hand exposure: No alcohol intake: never substance use type: denies use current occupational status: retired Travel in the last 8 weeks: None household members: spouse housing: house education level: high school current occupation: retired from [employer] current occupational exposures/hazards: No caffeine: Yes
== END ==
PROVIDERS: PCP Internal Medicine Adolescent Medicine; Visit Provider Anesthesiology
DX: M96.1 Postlaminectomy syndrome, not elsewhere classified (principal); M54.16 Radiculopathy, lumbar region; Z79.899 Other long term (current) drug therapy
CPT/HCPCS: 99212; G0463

== ENCOUNTER → 2022-09-09 08:09 | Outpatient (CLI) | payer MEDICARE, BC, OTHER, SELFPAY ==
[2022-09-09 08:58] LABS: Basophils # 0.1 K/mm3 (0-0.2); Basophils % 1.4 % (0.1-2.0); Eosinophils # 0.2 K/mm3 (0.0-0.4); Hematocrit 39.1 % (37.0-47.0); Hemoglobin 12.8 g/dL (12.2-16.2); Lymphocytes # 1.5 K/mm3 (0.7-4.5); Mean Corpuscular HGB Conc 32.8 g/dL (31.8-35.4); Mean Corpuscular Hemoglobin 31.7 pg (27.0-31.2); Mean Corpuscular Volume 96.4 fl (81-99); Mean Platelet Volume 8.1 fl (7.4-10.4); Monocytes # 0.3 K/mm3 (0.1-1.0); Monocytes % 7.1 % (1.7-9.3); Neutrophils # 1.7 K/mm3 (1.8-7.8); Neutrophils % 45.6 % (37.0-80.0); Platelet Count 186 K/mm3 (142-424); Red Blood Count 4.05 M/mm3 (4.20-5.40); Red Cell Distribution Width 12.7 % (11.5-17.5); White Blood Count 3.8 K/mm3 (4.8-10.8)
[2022-09-09 09:45] LABS: Alanine Aminotransferase 15 U/L (12-78); Albumin Level 3.8 g/dl (3.5-5.0); Alkaline Phosphatase 106 U/L (38-126); Anion Gap 9.7 mEq/L (5-15); Aspartate Amino Transferase 27 U/L (14-36); Bilirubin,Direct 0.2 mg/dl (0.0-0.4); Bilirubin,Indirect 0.3 mg/dL (0.0-0.9); Bilirubin,Total 0.5 mg/dl (0.2-1.3); Bilirubin,Unconjugated 0.3 mg/dL (0.0-1.1); Blood Urea Nitrogen 12 mg/dl (7-17); Calcium 8.9 mg/dl (8.4-10.2); Carbon Dioxide 29 mmol/L (22.0-30.0); Chloride 109 mmol/L (98-107); Estimated Glomerular Filt Rate 55 ml/min (>60); GFR (African American) 67 ML/MIN (>60); Glucose 83 mg/dl (74-100); HDL Cholesterol 64 mg/dl (40-60); Potassium 4.7 mmoL/L (3.5-5.1); Sodium 143 mmol/L (136-145); Total Protein,Serum 6.3 g/dl (6.3-8.2)
[2022-09-09 09:48] LABS: Chol/HDL Ratio 2.2 (1-3.5); Cholesterol 140 mg/dl (140-200); Triglycerides 171 mg/dl (30-150); VLDL Cholesterol 34 mg/dL (0-40)
[2022-09-09 09:57] LABS: Direct LDL Cholesterol 40.96 mg/dL (100-129)
== END ==
PROVIDERS: PCP Internal Medicine Adolescent Medicine; Visit Provider Internal Medicine Interventional Cardiology
DX: E78.00 Pure hypercholesterolemia, unspecified (principal)
CPT/HCPCS: 36415; 80048; 80061; 80076; 85025

== ENCOUNTER 2022-10-05 11:35 | Emergency (ER) | payer MEDICARE, BC, OTHER, SELFPAY ==
[2022-10-05 11:40] VITALS: BP 133/61; PULSE 85; RESP 22; TEMP 37; O2SAT 94; BMI 32.1
--- NOTE | 2022-10-05 11:55 | EXP.UTC ---
Discharge Plan Disposition Patient Disposition: Home, Self-Care Condition: Good Prescriptions Prescriptions: New benzonatate 100 mg capsule 100 mg PO TID PRN (Reason: cough) Qty: 30 0RF prednisone [prednisone] 20 mg tablet 20 mg PO BID 5 Days Qty: 10 0RF doxycycline hyclate 100 mg capsule 100 mg PO BID Qty: 20 0RF No Action levothyroxine 88 mcg tablet 88 mcg PO DAILY hydrocortisone 5 mg tablet 5 mg PO BID Label Comments: TAKE ONE TABLET BY MOUTH TWICE DAILY duloxetine 60 mg capsule,delayed release(DR/EC) 60 mg PO BID Label Comments: TAKE 1 CAPSULE BY MOUTH TWICE DAILY rosuvastatin 20 mg tablet 20 mg PO DAILY Label Comments: TAKE 1 TABLET BY MOUTH ONCE DAILY FOR 90 DAYS Ajovy Autoinjector 225 mg/1.5 mL auto-injector 225 mg SQ [id number] Ubrelvy 100 mg tablet 100 mg PO PRN omeprazole 40 mg capsule,delayed release(DR/EC) 40 mg PO DAILY lubiprostone 24 mcg capsule 24 mcg PO BID (DME) anesthesia tray Tray See Rx Instructions .Route Rx Instructions: 1.333mg in pain pump ropinirole 0.5 mg tablet 0.5 mg PO BID Label Comments: TAKE 1 TABLET BY MOUTH TWICE DAILY azelastine 205.5 mcg (0.15 %) spray,non-aerosol 1 spray intranasal budesonide-formoterol [Symbicort] 80-4.5 mcg/actuation HFA aerosol inhaler 2 puff inhalation BID fentanyl citrate (PF)-0.9%NaCl 10 mcg/mL prefilled pump reservoir 1,570 mcg epidural ONCE quetiapine [Seroquel] 200 MG tablet 300 mg PO HS sodium bicarbonate 650 MG tablet 650 mg PO BID eszopiclone [Lunesta] 3 MG tablet 3 mg PO HS lutein 20 MG capsule 20 mg PO DAILY cholecalciferol (vitamin D3) 50,000 UNIT capsule 50,000 unit PO DIRECTED albuterol sulfate [Ventolin HFA] 108 HFA aerosol inhaler 2 puffs PO Q6HP PRN (Reason: BREATHING) Label Comments: geriatric hafmflxy-lxpz-mrzl 1 EACH tablet 1 each PO DAILY lamotrigine 100 MG tablet 100 mg PO BID memantine 10 MG tablet 10 mg PO BID montelukast 10 MG tablet 10 mg PO PM fluticasone propionate 120 SPR/BOT bottle 1 spr intranasal DAILY Rx Instructions: each nostril daily Referrals Follow up/Referrals: Marc Rodriguez MD [Primary Care Provider] - See instructions Activity Restrictions/Add. Instructions Additional Instructions/Restrictions: *Monitor Temp, Over the counter Motrin or Tylenol as directed/as needed Tylenol every 4 hours and Motrin every 6 hours (as long as your family doctor has told you that you can take it) for fever or pain. and straight to ER if unable to lower temp less than 101.0 after medication given *Warm salt water gargles may help to soothe the throat *Throat Lozenges? *Warm fluids like tea with honey may help to soothe the throat? *Sleep elevated *Humidifier/Vaporizer Your throat swab was sent for culture. Those results are typically sent to your primary care. Be sure to follow up in 2-3 days with your family doctor/primary care physician if no improvement so they can review those result and treat if necessary. If you don?t have a primary care doctor, I recommend you get one but in the mean time, you will have to return to a walk in clinic Follow up IMMEDIATELY for new or worsening symptoms or no Noticeable improvement over the next 48-72 hours. 911 for difficulty breathing or swallowing Clinical Impressions Clinical Impression: Sinusitis, Cough Instructions Patient Instructions: Cough, DI for Sinusitis, Acute Bronchitis Discharge ED Provider: Bianca Chicas [facility] General Stated complaint: Cough sore throat Mode of Arrival: Ambulatory Source of Information: Patient Limitations: No Limitations Time Seen by Provider: 10/05/22 11:57 Description of Symptoms (Recalled from Triage Doc. by RN): PATIENT C/O COUGH AND HEADACHE THAT STARTED THURSDAY HEENT Symptoms (
[2022-10-05 12:07] LABS: UTC Strep Screen (Rapid) Negative (Negative)
[2022-10-05 12:44] VITALS: BP 133/61; PULSE 85; RESP 22; TEMP 37; O2SAT 94
== END 2022-10-05 12:52 | disposition home or self-care (01) ==
PROVIDERS: Emergency Provider Nurse Practitioner; PCP Internal Medicine Adolescent Medicine
DX: J32.9 Chronic sinusitis, unspecified (principal); R05.9 Cough, unspecified
CPT/HCPCS: 87880; 99212; 99213; G0463

== ENCOUNTER → 2023-02-05 12:46 | Outpatient (POV) | payer MEDICARE, BC, OTHER, SELFPAY ==
[2023-02-05 13:09] VITALS: BP 149/83; PULSE 88; RESP 18; O2SAT 97
--- NOTE | 2023-02-05 13:21 | EXP.PAIN.PRO ---
Procedure Date: 02/05/23 Time: 13:22 Anesthesiologist:: Amna Wood APRN Complications:: None Pre-procedure Diagnosis:: Degenerative disc disease of cervical and lumbar spine with cervical and lumbar radiculopathy symptoms, postlaminectomy syndrome lumbar spine, cervical and lumbar fusion syndrome Post-procedure Diagnosis:: Same Indications for Procedure:: Patient is a pleasant 67-year-old female who presents today for follow-up and intrathecal reprogramming adjustment. We are currently treating the patient for degenerative disc disease of cervical and lumbar spine with cervical and lumbar radiculopathy symptoms, postlaminectomy syndrome lumbar spine, cervical and lumbar fusion syndrome. Today she rates her pain a 6 out of 10. Patient denies any new trauma or injury. Patient denies any change to location or type of pain she experiences. Patient does state that she continues to have low back pain with radiating symptoms into her lower extremities. She does describe this as an aching, throbbing sensation with numbness and tingling all the way down to her bilateral feet. Patient states this has been going on for several years and progressively worsened over time. Patient has had previous back surgery for her cervical and lumbar spine. Patient has also been tried on multiple medications including gabapentin and pregabalin that she could not tolerate and was taken off Vioxx in the past. Patient has also tried fmra-bkj-zkmeugl Tylenol and ibuprofen. Patient has continued to use heat and ice and topicals such as IcyHot and Biofreeze with no additional relief. Patient has been to physical therapy for multiple sessions with no additional improvement. She does continue to try and do exercise on a daily basis however it is limited by her worsening pain symptoms into her legs and feet. Patient does currently have a intrathecal pain pump with fentanyl 6000 mcg/mL with a daily dose of 1815 mcg/day and bupivacaine 5 mg/mL with a daily dose of 1.5125 mg/day. Patient denies any side effects from this medication. She states this medication does help with her back symptoms however her leg symptoms interfere with her ability to perform activities of daily life such as cooking and cleaning. Patient states that it does also interfere with sleeping and that she frequently tosses and turns during the middle of the night due to her leg symptoms. Patient has been tried on multiple medications for restless leg including ropinirole 0.5 mg twice daily however she states that she does not notice any additional improvement. Patient has previously discussed the spinal cord stimulator trial and was given educational handouts and would like to proceed forward with this plan of care. She did have a psych eval done in September and was deemed an appropriate candidate for this trial. Her Romeo is [id number]. Physical Exam: General: Alert and oriented x3, no acute distress, pleasant and cooperative Lungs: Respirations even and unlabored, symmetrical chest expansion Eyes: PERRL Musculoskeletal: Flexion and extension of lumbar [spine] somewhat guarded secondary to pain, [antalgic gait noted] Neurological: Speech clear, no gross sensory deficit Procedure Details:: Informed consent was obtained and the risk and benefits of the procedure were explained to the patient. Patient was taken to the procedure room where noninvasive monitoring was placed including noninvasive blood pressure cuff and pulse oximeter. Patient's pump was interrogated and was reprogrammed to fentanyl 1905 mcg/day and bupivacaine 1.5875 mg/day. The patient tolerated the procedure well with no complications. Plan and Disposition:: Patient continues to experience significant pain in her legs and bilateral feet with limited range of motion of her lumbar spine. I have reviewed back again over the risk and benefits of the spinal cord stimulator trial and she would like to proceed forward with this plan of care. Josephine
== END | disposition home or self-care (01) ==
PROVIDERS: PCP Internal Medicine Adolescent Medicine; Visit Provider Nurse Practitioner Family
DX: M50.10 Cervical disc disorder with radiculopathy, unspecified cervical region (principal); M51.16 Intervertebral disc disorders with radiculopathy, lumbar region; M96.1 Postlaminectomy syndrome, not elsewhere classified; M43.22 Fusion of spine, cervical region; M43.26 Fusion of spine, lumbar region
CPT/HCPCS: 62368; 99213; G0463

== ENCOUNTER → 2023-03-17 07:54 | Outpatient (CLI) | payer MEDICARE, BC, OTHER, SELFPAY ==
[2023-03-17 08:13] LABS: Basophils % 0.2 % (0.1-2.0); Eosinophils # 0.1 K/mm3 (0.0-0.4); Eosinophils % 2.2 % (0.1-12.0); Hematocrit 39.7 % (37.0-47.0); Hemoglobin 12.9 g/dL (12.2-16.2); Lymphocytes # 1.9 K/mm3 (0.7-4.5); Lymphocytes % 34.3 % (10-50); Mean Corpuscular HGB Conc 32.6 g/dL (31.8-35.4); Mean Corpuscular Hemoglobin 31.2 pg (27.0-31.2); Mean Corpuscular Volume 95.8 fl (81-99); Mean Platelet Volume 8.2 fl (7.4-10.4); Monocytes # 0.4 K/mm3 (0.1-1.0); Monocytes % 7.7 % (1.7-9.3); Neutrophils # 3.1 K/mm3 (1.8-7.8); Neutrophils % 55.7 % (37.0-80.0); Platelet Count 200 K/mm3 (142-424); Red Blood Count 4.15 M/mm3 (4.20-5.40); Red Cell Distribution Width 12.8 % (11.5-17.5); White Blood Count 5.5 K/mm3 (4.8-10.8)
[2023-03-17 09:05] LABS: Alanine Aminotransferase 21 U/L (12-78); Albumin Level 4.1 g/dl (3.5-5.0); Alkaline Phosphatase 117 U/L (38-126); Anion Gap 9.8 mEq/L (5-15); Aspartate Amino Transferase 34 U/L (14-36); Bilirubin,Indirect 0.7 mg/dL (0.0-0.9); Bilirubin,Total 0.7 mg/dl (0.2-1.3); Bilirubin,Unconjugated 0.7 mg/dL (0.0-1.1); Blood Urea Nitrogen 17 mg/dl (7-17); Calcium 9.4 mg/dl (8.4-10.2); Carbon Dioxide 28 mmol/L (22.0-30.0); Chloride 106 mmol/L (98-107); Cholesterol 165 mg/dl (140-200); Estimated Glomerular Filt Rate 62 ml/min (>60); GFR (African American) 75 ML/MIN (>60); Glucose 72 mg/dl (74-100); HDL Cholesterol 83 mg/dl (40-60); Potassium 3.8 mmoL/L (3.5-5.1); Sodium 140 mmol/L (136-145); Total Protein,Serum 6.9 g/dl (6.3-8.2); Triglycerides 140 mg/dl (30-150); VLDL Cholesterol 28 mg/dL (0-40)
[2023-03-17 09:16] LABS: Direct LDL Cholesterol 52.01 mg/dL (100-129)
== END ==
PROVIDERS: PCP Internal Medicine Adolescent Medicine; Visit Provider Nurse Practitioner Family
DX: I10 Essential (primary) hypertension (principal); E78.00 Pure hypercholesterolemia, unspecified
CPT/HCPCS: 36415; 80048; 80061; 80076; 85025

== ENCOUNTER 2023-03-26 21:34 | Emergency (ER) | payer MEDICARE, BC, OTHER, SELFPAY ==
[2023-03-26 21:35] VITALS: BP 145/77; PULSE 93; RESP 16; TEMP 37.7; O2SAT 96
--- NOTE | 2023-03-26 22:50 | PC.NURSE ---
checked on pt nothing needed at this time adjusted light in room at bs
[2023-03-26 23:00] VITALS: BP 121/74; PULSE 86; RESP 20; O2SAT 93
--- NOTE | 2023-03-26 23:09 | HMH.EDGENADL ---
Discharge Plan Disposition Patient Disposition: Home, Self-Care Condition: Good Prescriptions Prescriptions: No Action levothyroxine 88 mcg tablet 88 mcg PO DAILY hydrocortisone 5 mg tablet 5 mg PO BID Patient Comments: TAKE ONE TABLET BY MOUTH TWICE DAILY duloxetine 60 mg capsule,delayed release(DR/EC) 60 mg PO BID Patient Comments: TAKE 1 CAPSULE BY MOUTH TWICE DAILY rosuvastatin 20 mg tablet 20 mg PO DAILY Patient Comments: TAKE 1 TABLET BY MOUTH ONCE DAILY FOR 90 DAYS Ubrelvy 100 mg tablet 100 mg PO DIRECTED PRN (Reason: .) omeprazole 40 mg capsule,delayed release(DR/EC) 40 mg PO DAILY budesonide-formoterol [Symbicort] 80-4.5 mcg/actuation HFA aerosol inhaler 2 puff inhalation BID fentanyl citrate (PF)-0.9%NaCl 10 mcg/mL prefilled pump reservoir 1,570 mcg epidural ONCE quetiapine [Seroquel] 200 MG tablet 300 mg PO HS sodium bicarbonate 650 MG tablet 650 mg PO BID eszopiclone [Lunesta] 3 MG tablet 3 mg PO HS lutein 20 MG capsule 20 mg PO DAILY cholecalciferol (vitamin D3) 50,000 UNIT capsule 50,000 unit PO DIRECTED albuterol sulfate [Ventolin HFA] 108 HFA aerosol inhaler 2 puffs PO Q6HP PRN (Reason: BREATHING) Patient Comments: geriatric ipeleuqv-pala-unwc 1 EACH tablet 1 each PO DAILY lamotrigine 100 MG tablet 100 mg PO BID memantine 10 MG tablet 10 mg PO BID montelukast 10 MG tablet 10 mg PO PM fluticasone propionate 120 SPR/BOT bottle 1 spr intranasal DAILY Rx Instructions: each nostril daily ropinirole 1 mg tablet 1 mg PO BID Qty: 60 0RF Referrals Follow up/Referrals: Marc Rodriguez MD [Primary Care Provider] - See instructions Activity Restrictions/Add. Instructions Additional Instructions/Restrictions: Please follow-up with your primary care provider for re-evaluation and consideration of covid specific medications. Please return to the emergency department if you develop any new or worsening symptoms or become concerned for your health. Clinical Impressions Clinical Impression: COVID-19 Discharge ED Provider: Barry Adams Adult HPI General Chief complaint: Upper Respiratory Infection Stated complaint: pos covid test, cough, ARCHIBALD fever Time Seen by Provider: 03/26/23 23:09 Mode of Arrival: Ambulatory Source of Information: Patient Limitations: No Limitations Description of Symptoms (Recalled from ER Triage Doc. by RN): pt states that she is covid positive has a hx of lung issues and her dr told her to come here for treatmant if she became symptomatic History of Present Illness HPI narrative: 67-year-old female history of asthma and chronic cough presents to the ED with worsening cough the setting of positive COVID test today. She reports that she started feeling worse at approximately noon today, prior to that was in her normal state of health. She denies headache chest pain nausea vomiting. Reports some back pain with cough. Reports that she has had a fever at home, denies urinary symptoms. Related Data Home Medications Medication Instructions Recorded Confirmed cholecalciferol (vitamin D3) 1,250 50,000 unit PO DIRECTED 10/09/17 03/26/23 mcg (50,000 unit) capsule Supplement eszopiclone 3 mg tablet (Lunesta) 3 mg PO HS sleep 10/09/17 03/26/23 lutein 20 mg capsule 20 mg PO DAILY EYES 10/09/17 03/26/23 quetiapine 200 mg tablet (Seroquel) 300 mg PO HS sleep 10/09/17 03/26/23 sodium bicarbonate 650 mg tablet 650 mg PO BID Supplement 10/09/17 03/26/23 albuterol sulfate 90 mcg/actuation 2 puffs PO Q6HP PRN BREATHING 10/19/17 03/26/23 aerosol inhaler (Ventolin HFA) geriatric dlhhguza-nklj-yhpv 1 each PO DAILY Diet supplement 10/14/19 03/26/23 lamotrigine 100 mg tablet 100 mg PO BID SEIZURES 10/14/19 03/26/23 memantine 10 mg tablet 10 mg PO BID MEMORY 10/14/19 03/26/23 montelukast 10 mg tablet 10 mg PO PM ALLER
--- NOTE | 2023-03-26 23:16 | XR_ITS ---
PROCEDURE INFORMATION: Exam: XR Chest Exam date and time: 03/26/2023 11:22 PM Age: 67 years old Clinical indication: Cough and fever and shortness of breath; Additional info: Covid positive, SOA TECHNIQUE: Imaging protocol: Radiologic exam of the chest. Views: 2 views. COMPARISON: CR XR CHEST 2V 04/06/2021 9:59 AM FINDINGS: Lungs: Unremarkable. No consolidation. Pleural spaces: Unremarkable. No pleural effusion. No pneumothorax. Heart/Mediastinum: Unremarkable. No cardiomegaly. Vasculature: There are calcifications of the aortic arch. Bones/joints: The patient is status post right shoulder arthroplasty. There is cervical spine surgical hardware. There are degenerative changes of the thoracic spine. Intraperitoneal space: There are right upper quadrant surgical clips suggesting prior cholecystectomy. IMPRESSION: No dense parenchymal consolidation, pleural effusion, or pneumothorax.
[2023-03-27 00:09] VITALS: BP 129/83; PULSE 81; RESP 18; TEMP 37.1; O2SAT 95
== END 2023-03-27 00:10 | disposition home or self-care (01) ==
PROVIDERS: Emergency Provider Emergency Medicine; PCP Internal Medicine Adolescent Medicine
DX: U07.1 COVID-19 (principal); R51.9 Headache, unspecified; R50.9 Fever, unspecified
CPT/HCPCS: 71046; 99283

== ENCOUNTER 2023-03-29 07:25 | Observation (INO) | payer MEDICARE, BC, OTHER, SELFPAY ==
[2023-03-29] VITALS (19 sets, daily range): BP systolic 118–174; BP diastolic 61–124; PULSE 85–124; RESP 16–41; TEMP 36.6–37.2; O2SAT 77–100; BMI 30.7; BMI 30.3
--- NOTE | 2023-03-29 | CT_ITS ---
PROCEDURE INFORMATION: Exam: CTA Head With Contrast, Arteriography Exam date and time: 03/29/2023 9:02 AM Age: 67 years old Clinical indication: Cognitive deficit; Altered mental status; Additional info: AMS TECHNIQUE: Imaging protocol: Computed tomographic angiography of the head with contrast. Exam focused on the arteries. 3D rendering (Not supervised by radiologist): MIP and/or 3D reconstructed images were created by the technologist. Radiation optimization: All CT scans at this facility use at least one of these dose optimization techniques: automated exposure control; mA and/or kV adjustment per patient size (includes targeted exams where dose is matched to clinical indication); or iterative reconstruction. Contrast material: ISOVUE; Contrast volume: 100 ml; Contrast route: INTRAVENOUS (IV); REPORTING DATA: Count of CT and Cardiac NM exams in prior 12 months: This patient has received 0 known CTs and 0 known cardiac nuclear medicine studies in the 12 months prior to the current study. COMPARISON: CT HEAD/BRAIN WO CON 03/29/2023 8:58 AM FINDINGS: ANTERIOR CIRCULATION: Right internal carotid artery: Intracranial segment is patent with no significant stenosis. No aneurysm. Right middle cerebral artery: No occlusion or significant stenosis. No aneurysm. Right anterior cerebral artery: No occlusion or significant stenosis. No aneurysm. Left internal carotid artery: Intracranial segment is patent with no significant stenosis. No aneurysm. Left middle cerebral artery: No occlusion or significant stenosis. No aneurysm. Left anterior cerebral artery: No occlusion or significant stenosis. No aneurysm. POSTERIOR CIRCULATION: Right vertebral artery: No occlusion or significant stenosis. No aneurysm. Left vertebral artery: No occlusion or significant stenosis. No aneurysm. Basilar artery: No occlusion or significant stenosis. No aneurysm. Right posterior cerebral artery: No occlusion or significant stenosis. No aneurysm. Left posterior cerebral artery: No occlusion or significant stenosis. No aneurysm. Brain: No definite mass, mass effect, or midline shift. Cerebral ventricles: No ventriculomegaly. Paranasal sinuses: Patchy mucosal thickening and opacity air-fluid levels are noted within ethmoid air cells and maxillary antra. Bones/joints: Unremarkable. No acute fracture. Soft tissues: Unremarkable. IMPRESSION: No large vessel occlusion.
--- NOTE | 2023-03-29 07:30 | PC.NURSE ---
pt presents to ER very lethargic not able to answer any questions , states she got up this am had syncopal episode she has a pain pump of fentanyl and was just increased pupils pinpoint. started giving narcan 1mg at a time with very little improvement
--- NOTE | 2023-03-29 07:32 | HMH.EDGENADL ---
Discharge Plan Disposition Patient Disposition: Admitted Prescriptions Prescriptions: No Action levothyroxine 88 mcg tablet 88 mcg PO DAILY hydrocortisone 5 mg tablet 5 mg PO BID Patient Comments: TAKE ONE TABLET BY MOUTH TWICE DAILY duloxetine 60 mg capsule,delayed release(DR/EC) 60 mg PO BID Patient Comments: TAKE 1 CAPSULE BY MOUTH TWICE DAILY rosuvastatin 20 mg tablet 20 mg PO DAILY Patient Comments: TAKE 1 TABLET BY MOUTH ONCE DAILY FOR 90 DAYS Ubrelvy 100 mg tablet 100 mg PO DIRECTED PRN (Reason: .) omeprazole 40 mg capsule,delayed release(DR/EC) 40 mg PO DAILY budesonide-formoterol [Symbicort] 80-4.5 mcg/actuation HFA aerosol inhaler 2 puff inhalation BID fentanyl citrate (PF)-0.9%NaCl 10 mcg/mL prefilled pump reservoir 1,570 mcg epidural ONCE quetiapine [Seroquel] 200 MG tablet 300 mg PO HS sodium bicarbonate 650 MG tablet 650 mg PO BID eszopiclone [Lunesta] 3 MG tablet 3 mg PO HS lutein 20 MG capsule 20 mg PO DAILY cholecalciferol (vitamin D3) 50,000 UNIT capsule 50,000 unit PO DIRECTED albuterol sulfate [Ventolin HFA] 108 HFA aerosol inhaler 2 puffs PO Q6HP PRN (Reason: BREATHING) Patient Comments: geriatric vtbrtssd-[id number]-liaf 1 EACH tablet 1 each PO DAILY lamotrigine 100 MG tablet 100 mg PO BID memantine 10 MG tablet 10 mg PO BID montelukast 10 MG tablet 10 mg PO PM fluticasone propionate 120 SPR/BOT bottle 1 spr intranasal DAILY Rx Instructions: each nostril daily ropinirole 1 mg tablet 1 mg PO BID Qty: 60 0RF Clinical Impressions Clinical Impression: Opiate overdose Discharge ED Provider: Ruiz Hyman General Adult HPI General Chief complaint: Overdose Stated complaint: lethargic Time Seen by Provider: 03/29/23 07:32 History of Present Illness HPI narrative: Patient is a 67-year-old female with chronic back pain who has an intrathecal pain pump administering bupivacaine and fentanyl presents today with altered mental status. She recently had the dose of her fentanyl increased on and she is brought in by her this morning stating that she has altered mental status decreased respirations has pinpoint pupils and he thinks that she is overdosed on her pain pump. No other symptoms preceding today no fevers or chills no focal neurologic deficits. She was recently diagnosed with COVID but has been improving from that standpoint. She does not take any oral opiates Related Data Home Medications Medication Instructions Recorded Confirmed cholecalciferol (vitamin D3) 1,250 50,000 unit PO DIRECTED 10/09/17 03/26/23 mcg (50,000 unit) capsule Supplement eszopiclone 3 mg tablet (Lunesta) 3 mg PO HS sleep 10/09/17 03/26/23 lutein 20 mg capsule 20 mg PO DAILY EYES 10/09/17 03/26/23 quetiapine 200 mg tablet (Seroquel) 300 mg PO HS sleep 10/09/17 03/26/23 sodium bicarbonate 650 mg tablet 650 mg PO BID Supplement 10/09/17 03/26/23 albuterol sulfate 90 mcg/actuation 2 puffs PO Q6HP PRN BREATHING 10/19/17 03/26/23 aerosol inhaler (Ventolin HFA) geriatric sllnruoo-nkwj-tjvl 1 each PO DAILY Diet supplement 10/14/19 03/26/23 lamotrigine 100 mg tablet 100 mg PO BID SEIZURES 10/14/19 03/26/23 memantine 10 mg tablet 10 mg PO BID MEMORY 10/14/19 03/26/23 montelukast 10 mg tablet 10 mg PO PM ALLERGIES 10/14/19 03/26/23 fluticasone propionate 50 1 spr intranasal DAILY . 05/06/21 03/26/23 mcg/actuation nasal spray,suspension budesonide-formoterol HFA 80 2 puff inhalation BID Breathing 09/25/22 03/26/23 mcg-4.5 mcg/actuation aerosol Problems inhaler (Symbicort) duloxetine 60 mg capsule,delayed 60 mg PO BID MOOD 09/25/22 03/26/23 release fentanyl (PF) 10 mcg/mL in 0.9 % 1,570 mcg epidural ONCE Pain 09/25/22 03/26/23 sodium chloride inject.pump reservoir hydrocortisone 5 mg tablet 5 mg PO BID . 09/25/2203/26
--- NOTE | 2023-03-29 08:00 | PC.NURSE ---
pt has had 4 mg total of narcan pt looking at follows some commands still not answering questions , pt having bouts of diarrhea
--- NOTE | 2023-03-29 08:17 | CT_ITS ---
PROCEDURE INFORMATION: Exam: CTA Neck With Contrast Exam date and time: 03/29/2023 9:02 AM Age: 67 years old Clinical indication: Cognitive deficit; Altered mental status; Additional info: Acute AMS TECHNIQUE: Imaging protocol: Computed tomographic angiography of the neck with contrast. 3D rendering (Not supervised by radiologist): MIP and/or 3D reconstructed images were created by the technologist. Radiation optimization: All CT scans at this facility use at least one of these dose optimization techniques: automated exposure control; mA and/or kV adjustment per patient size (includes targeted exams where dose is matched to clinical indication); or iterative reconstruction. Contrast material: ISOVUE; Contrast volume: 100 ml; Contrast route: INTRAVENOUS (IV); REPORTING DATA: Count of CT and Cardiac NM exams in prior 12 months: This patient has received 0 known CTs and 0 known cardiac nuclear medicine studies in the 12 months prior to the current study. COMPARISON: CT HEAD/BRAIN WO CON 03/29/2023 8:58 AM FINDINGS: Right common carotid artery: No stenosis. No dissection or occlusion. Right internal carotid artery: No stenosis of the extracranial segment. No dissection or occlusion. Right external carotid artery: No occlusion or stenosis of the origin. Left common carotid artery: No stenosis. No dissection or occlusion. Left internal carotid artery: No stenosis of the extracranial segment. No dissection or occlusion. Left external carotid artery: No occlusion or stenosis of the origin. Right vertebral artery: No stenosis. No dissection or occlusion. Left vertebral artery: No stenosis. No dissection or occlusion. Soft tissues: Normal. No significant soft tissue swelling. Bones/joints: Cervical fixation hardware is noted. IMPRESSION: No evidence for carotid stenosis. REFERENCES: NASCET CRITERIA. The degree of stenosis in the cervical segment of the internal carotid artery is based on NASCET criteria. Normal is no stenosis. Mild is less than 50% stenosis. Moderate is 50-69% stenosis. Severe is 70% to 99% stenosis. Total occlusion is no detectable patent lumen.
--- NOTE | 2023-03-29 08:17 | XR_ITS ---
PROCEDURE INFORMATION: Exam: XR Chest Exam date and time: 03/29/2023 9:15 AM Age: 67 years old Clinical indication: Dyspnea TECHNIQUE: Imaging protocol: Radiologic exam of the chest. Views: 1 view. COMPARISON: CR XR CHEST 2V 03/26/2023 11:22 PM FINDINGS: Lungs: Increased basilar markings are noted. Lung volumes are low. Pleural spaces: Unremarkable. No pleural effusion. No pneumothorax. Heart/Mediastinum: Unremarkable. No cardiomegaly. Bones/joints: Cervical fixation hardware is incidentally noted. The patient is post right shoulder arthroplasty. IMPRESSION: Basilar increased markings.
--- NOTE | 2023-03-29 08:17 | CT_ITS ---
PROCEDURE INFORMATION: Exam: CT Head Without Contrast Exam date and time: 03/29/2023 8:58 AM Age: 67 years old Clinical indication: Altered mental status/memory loss; Confusion or disorientation; Additional info: Acute AMS TECHNIQUE: Imaging protocol: Computed tomography of the head without contrast. Radiation optimization: All CT scans at this facility use at least one of these dose optimization techniques: automated exposure control; mA and/or kV adjustment per patient size (includes targeted exams where dose is matched to clinical indication); or iterative reconstruction. REPORTING DATA: Count of CT and Cardiac NM exams in prior 12 months: This patient has received 0 known CTs and 0 known cardiac nuclear medicine studies in the 12 months prior to the current study. COMPARISON: MR HEAD/BRAIN WO/W CON 04/28/2022 9:07 AM FINDINGS: Brain: Normal. No hemorrhage. Unremarkable white matter. No mass effect. Cerebral ventricles: No ventriculomegaly. Paranasal sinuses: Mucosal thickening and layering fluid within the paranasal sinuses is poorly depicted due to motion artifact. Mastoid air cells: Visualized mastoid air cells are well aerated. Bones/joints: Unremarkable. No acute fracture. Soft tissues: Unremarkable. Other findings: The study is degraded by motion artifact. IMPRESSION: Limited study. No acute intracranial process.
--- NOTE | 2023-03-29 08:22 | PC.NURSE ---
Called RT about VBG
--- NOTE | 2023-03-29 08:29 | PC.NURSE ---
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 Kidd
[2023-03-29 08:33] LABS: Chloride 102 mmol/L (98-107)
[2023-03-29 08:34] LABS: Basophils % 0.5 % (0.1-2.0); Eosinophils # 0.1 K/mm3 (0.0-0.4); Eosinophils % 2.6 % (0.1-12.0); Hematocrit 39.2 % (37.0-47.0); Hemoglobin 12.9 g/dL (12.2-16.2); Lymphocytes # 1.4 K/mm3 (0.7-4.5); Lymphocytes % 41.5 % (10-50); Mean Corpuscular Hemoglobin 31.6 pg (27.0-31.2); Mean Corpuscular Volume 95.8 fl (81-99); Mean Platelet Volume 8.3 fl (7.4-10.4); Monocytes # 0.4 K/mm3 (0.1-1.0); Monocytes % 11.5 % (1.7-9.3); Neutrophils # 1.4 K/mm3 (1.8-7.8); Neutrophils % 43.8 % (37.0-80.0); Platelet Count 163 K/mm3 (142-424); Potassium 3.9 mmoL/L (3.5-5.1); Red Blood Count 4.09 M/mm3 (4.20-5.40); Sodium 140 mmol/L (136-145); White Blood Count 3.3 K/mm3 (4.8-10.8)
[2023-03-29 08:36] LABS: Alanine Aminotransferase 34 U/L (12-78); Albumin Level 3.6 g/dl (3.5-5.0); Albumin/Globulin Ratio 1.1 (1.1-1.8); Alkaline Phosphatase 125 U/L (38-126); Anion Gap 10.9 mEq/L (5-15); Aspartate Amino Transferase 57 U/L (14-36); Bilirubin,Total 0.4 mg/dl (0.2-1.3); Blood Urea Nitrogen 9 mg/dl (7-17); Carbon Dioxide 31 mmol/L (22.0-30.0); Creatinine Clearance Estimated 57 mL/min (50-200); Estimated Glomerular Filt Rate 41 ml/min (>60); GFR (African American) 49 ML/MIN (>60); Globulin 3.2 g/dL (1.3-3.2); Total Protein,Serum 6.8 g/dl (6.3-8.2)
[2023-03-29 08:37] LABS: Calcium 9.9 mg/dl (8.4-10.2); Glucose 111 mg/dl (74-100)
[2023-03-29 08:38] LABS: Ethyl Alcohol < 10 mg/dl (0-10)
[2023-03-29 08:41] LABS: INR 0.98 (0.9-1.1); Prothrombin Time 10.6 seconds (10.1-12.5)
[2023-03-29 08:49] LABS: Ammonia 10 umol/L (9-30); Lactic Acid 1.7 mmol/L (0.7-2.1)
[2023-03-29 08:51] LABS: Troponin I < 0.01 ng/ml (0.00-0.034)
[2023-03-29 08:56] LABS: Microscopic, Urine URINE MICROSCOPIC (MICROSCOPIC)
[2023-03-29 09:02] LABS: Appearance,Urine CLEAR (Clear); Bilirubin,Urine Negative (Negative); Blood, Urine 1+ (Negative); Color,Urine YELLOW (Yellow); Glucose,Urine (UA) Negative (Negative); Ketones,Urine Negative (Negative); Leukocyte Esterase,Urine Negative (Negative); Nitrate,Urine Negative (Negative); Protein,Urine TRACE (Negative); Specific Gravity, Urine 1.015 (1.005-1.030); Urobilinogen,Urine 0.2 EU/dl (0.2)
[2023-03-29 09:07] LABS: Thyroid Stimulating Hormone 1.98 uIU/mL (0.465-4.68)
--- NOTE | 2023-03-29 09:09 | PC.NURSE ---
has computer numerical control operator to page dr. orourke again r/t no return call, computer numerical control operator states no answer has left another message.
[2023-03-29 09:13] LABS: Bacteria,Urine Trace /lpf; Barbiturates Screen,Urine Negative ng/ml (<200); Squamous Epithelial Cell,Urine Occasional #/hpf (0-5)
[2023-03-29 09:14] LABS: Amphetamine/Metha Screen,Urine Negative ng/ml (<1000); Benzodiazepines Screen,Urine Negative ng/ml (<200)
[2023-03-29 09:15] LABS: Cannabinoid Screen,Urine Negative ng/ml (<50)
[2023-03-29 09:16] LABS: Cocaine Screen,Urine Negative ng/ml (<300); Methadone Screen,Urine Negative ng/ml (<300)
[2023-03-29 09:17] LABS: Opiate Screen,Urine Positive ng/ml (<300); Phencyclidine Screen,Urine Negative ng/ml (<25)
--- NOTE | 2023-03-29 09:17 | ECG_ITS ---
APPROVED REPORT Exam: Resting ECG HR:110 bpm ECG Measurements Heart Rate 110 AXES WY 181 P 64 QRSd 131 QRS 1 QT 395 T 49 QTc 460 Conclusion SINUS TACHYCARDIA RIGHT BUNDLE BRANCH BLOCK [120+ ms QRS DURATION, UPRIGHT V1, 40+ ms S IN I/aVL/V4/V5/V6] ABNORMAL ECG UNCONFIRMED REPORT Electronically signed by : Marc Rodriguez MD 03/31/2023 17:24:50
--- NOTE | 2023-03-29 09:21 | PC.NURSE ---
contacted pharmacy r/t judah jensen per ER request, notified sue that pts effective dose from IVP was 10 mg sue reports he will work on it
--- NOTE | 2023-03-29 09:28 | PC.NURSE ---
pt back from CT she is answering questions after 10mg of narcan , pharmacy called for narcan drip , still trying to get Dr Kidd to get her pump turned off
--- NOTE | 2023-03-29 09:36 | PC.NURSE ---
motorcoach operator paging dr. valle
--- NOTE | 2023-03-29 09:39 | PC.NURSE ---
ER MD Hyman speaking with Dr. Kidd
--- NOTE | 2023-03-29 09:41 | PC.NURSE ---
DR SAENZ SPEAKING WITH DR EASON, TOM PILLAI, RN AT BEDSIDE TO TURN PAIN PUMP OFF PER DR EASON
--- NOTE | 2023-03-29 09:43 | PC.NURSE ---
DR SAENZ SPEAKING WITH TOM DUNHAM HERE TO TURN OFF PUMP
--- NOTE | 2023-03-29 09:47 | PC.NURSE ---
SARAVANAN Hyman speaking with Dr. Rodriguez
--- NOTE | 2023-03-29 10:29 | PC.NURSE ---
Called report to margot BALDWIN
--- NOTE | 2023-03-29 10:46 | PC.NURSE ---
PT BEING TRANSPORTED UP FOR ADMISSION
--- NOTE | 2023-03-29 10:47 | PC.NURSE ---
arrived to floor from ED by stretcher
--- NOTE | 2023-03-29 11:05 | PC.NURSE ---
pt admittd to 216 from ER, pt on narcan drip at this time at 381mL/hr, changed pt upon arrival as pt had bm, pt's at bedside
[2023-03-29 11:16] LABS: Influenza A, PCR Not Detected (NotDetected); Influenza B, PCR Not Detected (NotDetected)
[2023-03-29 11:41] LABS: Coronavirus 19, PCR Detected (NotDetected)
[2023-03-29 12:16] LABS: Troponin I < 0.01 ng/ml (0.00-0.034)
--- NOTE | 2023-03-29 14:23 | HMH.PHAINT1 ---
Pharmacy Intervention Comments: MEDICATION RECONCILIATION COMPLETE USING LIST FROM MOST RECENT OB OFFICE VISIT AND EXTERNAL PHARMACY FILL HISTORY.
[2023-03-29 15:23] LABS: Troponin I < 0.01 ng/ml (0.00-0.034)
--- NOTE | 2023-03-29 16:54 | EXP.HP ---
History of Present Illness *Admission Date: 03/29/23 *Reason for visit:: Mental status changes/weakness *History of present illness: 67-year-old with multiple medical problems, history of long-term opiate use for chronic pain syndrome has had a pain pump implanted for many years. She over the past couple of weeks has had increasing doses programmed into her pump of her fentanyl infusion at our local pain clinic. She had a last dose increase on March 26. She did well with this over the first couple of days but on noted that she began coughing and having some congestion, her had similar symptoms and they took a home COVID-19 test that was positive. They presented to the emergency department here where chest x-ray was clear, there were given supportive care advice and discharged home. She was feeling little worse over the last couple days and this morning she did not really wake up well and her had to basically carry her to the bathroom where she essentially collapsed and was very minimally responsive. Brought to the ER. Work-up in the ER revealed unclear etiology for mental status changes with unchanged CT scan, nondiagnostic labs and normal vital signs and she had classic symptoms of fentanyl overdose with pinpoint pupils and sluggishness. She was given high-dose Narcan which improved her symptoms. Pain clinic nurses were able to come to the ER and showed off the pump and she was placed on a Narcan drip and placed in the stepdown unit. When I evaluated her in the stepdown unit she was much improved according to her and nurses and was able to talk about her symptoms, recognize me and know where she was which is a vast improvement over presentation status. [facility] Disclaimer: The information contained in this section may have been updated after the patient was seen, as this information can be updated by other users. Medical History Abscess of vulva History of back pain History of back pain Hot flashes Ileus, unspecified Retinal detachment Surgical History History of appendectomy 1972 History of cataract surgery 2009 History of cholecystectomy 1976 History of colectomy 2006 History of foot surgery right toes History of hip replacement right, 07/22/2019 History of hysterectomy 1985 History of lumbar surgery 10/16/2021 History of lumpectomy History of right shoulder replacement 2018 History of surgery on left wrist 2017 Hx of cervical spine surgery 07/31/2021 Family History Mother Cancer Bone Diabetes Sister Diabetes Social History Smoking Status: Unknown if ever smoked second hand exposure: No alcohol intake: never substance use type: denies use current occupational status: retired Travel in the last 8 weeks: None household members: spouse housing: house education level: high school current occupation: retired from [employer] current occupational exposures/hazards: No caffeine: Yes Review of Systems Review of Systems Review of systems:: pertinent systems reviewed and negative unless documented below Meds Home Medications and Allergies Home Medications Medication Instructions Recorded Confirmed Type eszopiclone 3 mg tablet (Lunesta) 3 mg PO HS Insomnia 10/09/17 03/29/23 History sodium bicarbonate 650 mg tablet 650 mg PO BID Supplement 10/09/17 03/29/23 History albuterol sulfate 90 mcg/actuation 2 puffs PO Q4HP PRN Shortness Of 10/19/17 03/29/23 History aerosol inhaler (Ventolin HFA) Breath geriatric [id number]-epmp-[id number] 1 each PO DAILY Diet supplement 10/14/19 03/29/23 History lamotrigine 100 mg tablet 100 mg PO BID SEIZURES 10/14/19 03/29/23 History memantine 10 mg tablet 10 mg PO BID M
--- NOTE | 2023-03-29 16:57 | PC.NURSE ---
MD Rodriguez rounded at bedside and instructed this RN to stop narcan drip at this time, if pt LOC changes or worsens can restart drip at that time, MD ordered NS @100mL/hr, clear liquid diet, and will place order for pain medication
[2023-03-30] VITALS (10 sets, daily range): BP systolic 111–139; BP diastolic 68–75; PULSE 67–90; RESP 15–20; TEMP 36.5–36.8; O2SAT 91–99; BMI 27.5
[2023-03-30 06:27] LABS: Chloride 101 mmol/L (98-107); Sodium 135 mmol/L (136-145)
[2023-03-30 06:28] LABS: Potassium 3.5 mmoL/L (3.5-5.1)
[2023-03-30 06:30] LABS: Blood Urea Nitrogen 9 mg/dl (7-17); Creatinine Clearance Estimated 61 mL/min (50-200); Estimated Glomerular Filt Rate 49 ml/min (>60); GFR (African American) 60 ML/MIN (>60)
[2023-03-30 06:31] LABS: Anion Gap 11.5 mEq/L (5-15); Calcium 9.2 mg/dl (8.4-10.2); Carbon Dioxide 26 mmol/L (22.0-30.0); Glucose 88 mg/dl (74-100)
[2023-03-30 06:52] LABS: Basophils % 0.3 % (0.1-2.0); Eosinophils % 0.2 % (0.1-12.0); Hematocrit 38.5 % (37.0-47.0); Hemoglobin 12.7 g/dL (12.2-16.2); Lymphocytes # 1.5 K/mm3 (0.7-4.5); Lymphocytes % 32.4 % (10-50); Mean Corpuscular Hemoglobin 31.4 pg (27.0-31.2); Mean Platelet Volume 8.2 fl (7.4-10.4); Monocytes # 0.5 K/mm3 (0.1-1.0); Monocytes % 11.5 % (1.7-9.3); Neutrophils # 2.5 K/mm3 (1.8-7.8); Neutrophils % 55.6 % (37.0-80.0); Platelet Count 187 K/mm3 (142-424); Red Blood Count 4.06 M/mm3 (4.20-5.40); Red Cell Distribution Width 12.8 % (11.5-17.5); White Blood Count 4.4 K/mm3 (4.8-10.8)
[2023-03-30 07:59] LABS: VBG PH 7.36 mmol/L (7.31-7.41)
[2023-03-30 08:00] LABS: VBG Base Excess 3.2 mmol/L (-2.4-2.3); VBG HCO3 28.8 mmol/L (23-30); VBG PCO2 52.7 mmol/L (35-51); VBG PO2 53.3 mmol/L (28-40); VBG Total CO2 30.4 mmol/L (23-27)
[2023-03-30 08:01] LABS: VBG Oxygen Saturation 87.9 % (50-70)
--- NOTE | 2023-03-30 08:07 | PC.NURSE ---
Cody Holguin RN from pain management rounded on patient at this time. Plans to return with SAW OFFBEARER from Pain management.
--- NOTE | 2023-03-30 08:22 | EXP.DC.SUM ---
General Admission date:: 03/29/23 Discharge date: 03/30/23 HPI HPI HPI: 67-year-old with multiple medical problems, history of long-term opiate use for chronic pain syndrome has had a pain pump implanted for many years. She over the past couple of weeks has had increasing doses programmed into her pump of her fentanyl infusion at our local pain clinic. She had a last dose increase on March 26. She did well with this over the first couple of days but on noted that she began coughing and having some congestion, her had similar symptoms and they took a home COVID-19 test that was positive. They presented to the emergency department here where chest x-ray was clear, there were given supportive care advice and discharged home. She was feeling little worse over the last couple days and this morning she did not really wake up well and her had to basically carry her to the bathroom where she essentially collapsed and was very minimally responsive. Brought to the ER. Work-up in the ER revealed unclear etiology for mental status changes with unchanged CT scan, nondiagnostic labs and normal vital signs and she had classic symptoms of fentanyl overdose with pinpoint pupils and sluggishness. She was given high-dose Narcan which improved her symptoms. Pain clinic nurses were able to come to the ER and showed off the pump and she was placed on a Narcan drip and placed in the stepdown unit. When I evaluated her in the stepdown unit she was much improved according to her and nurses and was able to talk about her symptoms, recognize me and know where she was which is a vast improvement over presentation status. Hospital Course Hospital Course Hospital Course: Patient was admitted from the ER as noted. Placed on Narcan infusions and went through Narcan infusions for about 3 hours post admission and then this was discontinued once her GCS had gone to baseline. When Narcan was stopped she had no further sedation and began to have the return of her significant leg pain and some tremor. We initiated oxycodone 5 mg every 4-6 hours as needed for pain and withdrawal symptomatology control. She did well with this overnight. Because of her history of adrenal insufficiency we gave her 1 dose of stress dose intravenous hydrocortisone. She will resume her normal hydrocortisone dose on discharge Pain management has seen her this morning, they plan to completely drain her pump this morning and then allow her to go home and she will come back to see them at the end of the week for a stimulator trial. She and her are very averse to further medications in the pump given this second complications with pump infusion issues. We will discharge her today, I will prescribe oxycodone as noted for pain control and withdrawal control as a bridge to get her over into pain clinic appointment. We will follow her up on Thursday short-term to assess her neurologic status, pain control and other medication issues. Exam Data for Last 24 hours Vital signs and Labs for Last 24 Hours: Temp Pulse Resp BP Pulse Ox O2 Del Method 98.2 F 86 18 117/69 99 Room Air 03/30/23 08:00 03/30/23 07:59 03/30/23 06:00 03/30/23 06:00 03/30/23 07:59 03/30/23 07:59 Laboratory Results - last 24 hr 03/29/23 07:30: WBC 3.3 L, RBC 4.09 L, Hgb 12.9, Hct 39.2, MCV 95.8, MCH 31.6 H, MCHC 33.0, RDW 13.0, Plt Count 163, MPV 8.3, Neut % (Auto) 43.8, Lymph % (Auto) 41.5, Lucas % (Auto) 11.5 H, Eos % (Auto) 2.6, Baso % (Auto) 0.5, Neut # (Auto) 1.4 L, Lymph # (Auto) 1.4, Lucas # (Auto) 0.4, Eos # (Auto) 0.1, Baso # (Auto) 0.0, PT 10.6, INR 0.98, APTT 31.0 H, Sodium 140, Potassium 3.9, Chloride 102, Carbon Dioxide 31 H, Anion Gap 10.9, BUN 9, Creatinine 1.30 H, Estimated Creat Clear 57, Estimated GFR 41 L, Est GFR ( Amer) 49 L, Glucose 111 H, Calcium 9.9, Total Bilirubin 0.4, AST 57 H, ALT 34, Alkaline Phosphatase 125, Troponin I < 0.01, Total Protein
--- NOTE | 2023-03-30 08:53 | EXP.PAIN.PRO ---
Procedure Date: 03/30/23 Time: 08:53 Anesthesiologist:: Amna Wood APRN Complications:: None Pre-procedure Diagnosis:: Degenerative disc disease of cervical and lumbar spine with cervical and lumbar radiculopathy symptoms, postlaminectomy syndrome lumbar spine, cervical and lumbar fusion syndrome Post-procedure Diagnosis:: Same Indications for Procedure:: Patient is a pleasant 67-year-old female who presents today for follow-up and intrathecal reprogramming adjustment. We are currently treating the patient for degenerative disc disease of cervical and lumbar spine with cervical and lumbar radiculopathy symptoms, postlaminectomy syndrome lumbar spine, cervical and lumbar fusion syndrome. Today she rates her pain a 5 out of 10. Patient recently was admitted related to suspected overdose. Patient is currently managed with fentanyl 6000 mcg/mL and bupivacaine 5 mg/mL. Patient states that at her last [facility] home refill visit her nurse gave her a 10% increase and she did fine with this up until Thursday. Patient states she had increased sedation and worsening symptoms that prompted her to come to the ER. Patient was given multiple doses of Narcan and ended up being put on a Narcan drip. Patient does state that she is feeling much better today. Patient was diagnosed with COVID and may have led to possible worsening symptoms. Her Romeo is appropriate and has been reviewed. Physical Exam: General: Alert and oriented x3, no acute distress, pleasant and cooperative Lungs: Respirations even and unlabored, symmetrical chest expansion Eyes: PERRL Musculoskeletal: Flexion and extension of lumbar [spine] somewhat guarded secondary to pain, [antalgic gait noted] Neurological: Speech clear, no gross sensory deficit Procedure Details:: Informed consent was obtained and the risk and benefits of the procedure were explained to the patient. Patient was taken to the procedure room where noninvasive monitoring was placed including noninvasive blood pressure cuff and pulse oximeter. Patient's pump was interrogated and was reprogrammed to be turned off. Patients pump was expected to have 5.3 mL of solution. Patient did have approximately 5.8 mL withdrawn and discarded appropriately. The patient tolerated the procedure well with no complications. Plan and Disposition:: Patient is currently hospitalized related to oversedation and COVID. It is expected that she will be discharged soon with oral medication of oxycodone 5 mg every [address] Rodriguez. We will follow-up with this patient after her discharge. Patient had previously had a psychological evaluation with the plan to proceed forward with the spinal cord stimulator trial this Thursday. We will follow-up with her and confirm she is not symptomatic prior to April 03 date before proceeding forward. Patient's pump will continue to be turned off at this time. We will also confirm with Dr. Rodriguez that he has no contraindications for her proceeding forward with the spinal cord stimulator trial. Patient is tentatively scheduled for a spinal cord stimulator trial on April 03, 2023. Patient has been instructed to contact the clinic with any concerns before the next appointment. Dr. Kidd has reviewed this note and agrees with this plan of care. This note was dictated using voice recognition software and make contain errors or omissions. -- It Is medically necessary for this patient to continue to have their intrathecal pump refilled at regular intervals. This patient had an intrathecal pain pump implanted after meeting criteria of chronic intractable pain for greater than 3 months and failing conservative treatments. Patient has committed and been compliant to the treatment plan and all planned follow up care. Since implantation of the intrathecal pain pump, the patient has had decreased pain and been more functional. Oral medications have been reduced including intake of oral opioids. Patient continues to do
--- NOTE | 2023-03-30 09:46 | HMH.PHAINT1 ---
Pharmacy Intervention Comments: DISCHARGE MEDICATION COUNSELING PROVIDED. DISCUSSED STARTING OXYCODONE 7.5 MG EVERY 6 HOURS NEEDED FOR PAIN (MAY CAUSE N/V/CONSTIPATION, CONSIDER TAKING WITH FOOD, WATCH FOR SEDATION, DECREASED BREATHING AND IF THIS OCCURS GO TO THE ER). PATIENT VERBALIZED NO QUESTIONS AT THIS TIME.
--- NOTE | 2023-04-01 15:12 | CARE MANAGER ---
Spoke with patient for post-disharge phone interview, no issues noted.
== END 2023-03-30 10:30 | disposition home or self-care (01) ==
LOC: ER 09:32 → 2ND 10:32
PROVIDERS: Admitting Provider Internal Medicine Adolescent Medicine; Emergency Provider Student in an Organized Health Care Education/Training Program; Visit Provider Internal Medicine Adolescent Medicine
DX: T40.601A Poisoning by unspecified narcotics, accidental (unintentional), initial encounter (principal); U07.1 COVID-19; M79.604 Pain in right leg; M79.605 Pain in left leg; M51.16 Intervertebral disc disorders with radiculopathy, lumbar region; Z79.899 Other long term (current) drug therapy; Z88.8 Allergy status to other drugs, medicaments and biological substances; G89.29 Other chronic pain
CPT/HCPCS: 36415; 70450; 70496; 70498; 71045; 80048; 80053; 80305; 81001; 82140; 82803; 83605; 84443; 84484; 85025; 85610; 85730; 87040; 87636; 93005; 99291; G0378; J2310; J2405; Q9967

== ENCOUNTER → 2023-04-03 07:05 | Day surgery (SDC) | payer MEDICARE, BC, OTHER, SELFPAY ==
[2023-04-03 07:23] VITALS: BMI 30.5
--- NOTE | 2023-04-03 07:37 | SUR.PREOP ---
Dr Kidd cancelled procedure due to patient testing positive for COVID (9) days ago and is symptomatic.
--- NOTE | 2023-04-03 07:48 | EXP.PAIN.SOA ---
[facility] Pain Management SOAP Note Subjective:: Patient was scheduled for spinal cord stimulator trial today. She was diagnosed with COVID 9 days ago. She was given medication for COVID that was about the time that she presented to the emergency room with altered mental status. It was suspected that her pump was the causal agent however in hindsight it may have been a combination of being COVID-positive in addition to medications that she was on and her pump. Her pump is currently turned off she is on oxycodone but still having significant withdrawal and pain symptoms. Given her pump dose of intrathecal fentanyl and bupivacaine at 2100 mcg/day I will increase her oxycodone to 20 mg 3-4 times daily as needed. This will help with her pain symptoms and withdrawal symptoms. We will postpone her spinal cord stimulator trial until she is at least 2 weeks out from testing positive for COVID. We will get her back to baseline and plan on doing her stim trial next Thursday in our [place] office. Objective:: Alert and oriented x3 no acute distress. Patient still does have a cough. She is actively in pain with restless legs with some withdrawal symptoms from her previous intrathecal fentanyl bupivacaine infusion which is now off. Assessment:: Postlaminectomy syndrome lumbar spine with lumbar radiculopathy symptoms with malfunctioning intrathecal pain pump which is currently off. She is in withdrawal with increasing pain in her back and down her legs. She is 9 days status post COVID-positive testing. Plan:: We will increase her oxycodone to 20 mg 3-4 times daily. We will try to get her back to her baseline. We will wait and postpone her spinal cord stimulator trial until she is at least 2 weeks status post testing positive for COVID. We will plan on doing her spinal cord stimulator trial in our [place] office next Thursday. We will follow-up with the patient next Thursday to make sure that her pain symptoms are better and COVID symptoms are better. [facility] Disclaimer: The information contained in this section may have been updated after the patient was seen, as this information can be updated by other users. Medical History Abscess of vulva History of back pain History of back pain Hot flashes Ileus, unspecified Retinal detachment Surgical History History of appendectomy 1972 History of cataract surgery 2009 History of cholecystectomy 1976 History of colectomy 2006 History of foot surgery right toes History of hip replacement right, 07/22/2019 History of hysterectomy 1985 History of lumbar surgery 10/16/2021 History of lumpectomy History of right shoulder replacement 2019 History of surgery on left wrist 2017 Hx of cervical spine surgery 07/31/2021 Family History Mother Cancer Bone Diabetes Sister Diabetes Social History Smoking Status: Unknown if ever smoked second hand exposure: No alcohol intake: never substance use type: denies use current occupational status: retired Travel in the last 8 weeks: None household members: spouse housing: house education level: high school current occupation: retired from [employer] current occupational exposures/hazards: No caffeine: Yes
== END | disposition home or self-care (01) ==
PROVIDERS: Visit Provider Anesthesiology
DX: M96.1 Postlaminectomy syndrome, not elsewhere classified (principal); M54.16 Radiculopathy, lumbar region; T85.695A Other mechanical complication of other nervous system device, implant or graft, initial encounter
CPT/HCPCS: 99212; G0463

== ENCOUNTER → 2023-04-13 07:57 | Outpatient (CLI) | payer MEDICARE, BC, OTHER, SELFPAY ==
[2023-04-13 08:10] LABS: Microscopic, Urine URINE MICROSCOPIC (MICROSCOPIC)
[2023-04-13 08:33] LABS: Appearance,Urine CLEAR (Clear); Bilirubin,Urine Negative (Negative); Blood, Urine Negative (Negative); Color,Urine YELLOW (Yellow); Glucose,Urine (UA) Negative (Negative); Ketones,Urine Negative (Negative); Leukocyte Esterase,Urine Negative (Negative); Nitrate,Urine Negative (Negative); Protein,Urine Negative (Negative); Specific Gravity, Urine 1.015 (1.005-1.030); Urobilinogen,Urine 0.2 EU/dl (0.2)
[2023-04-13 08:40] LABS: Basophils % 0.6 % (0.1-2.0); Eosinophils # 0.1 K/mm3 (0.0-0.4); Hemoglobin 12.8 g/dL (12.2-16.2); Lymphocytes # 1.9 K/mm3 (0.7-4.5); Lymphocytes % 35.3 % (10-50); Mean Corpuscular HGB Conc 31.9 g/dL (31.8-35.4); Mean Corpuscular Hemoglobin 30.9 pg (27.0-31.2); Mean Platelet Volume 8.2 fl (7.4-10.4); Monocytes # 0.4 K/mm3 (0.1-1.0); Monocytes % 6.5 % (1.7-9.3); Neutrophils # 3.1 K/mm3 (1.8-7.8); Neutrophils % 55.6 % (37.0-80.0); Platelet Count 264 K/mm3 (142-424); Red Blood Count 4.12 M/mm3 (4.20-5.40); Red Cell Distribution Width 13.2 % (11.5-17.5); White Blood Count 5.5 K/mm3 (4.8-10.8)
[2023-04-13 08:42] LABS: Creatinine,Urine Random 56 mg/dL (Not Estab.)
[2023-04-13 08:44] LABS: Bacteria,Urine Trace /lpf; Squamous Epithelial Cell,Urine Occasional #/hpf (0-5); WBC,Urine Occasional #/hpf (0-3)
[2023-04-13 09:17] LABS: Albumin Level 3.8 g/dl (3.5-5.0); Anion Gap 12.9 mEq/L (5-15); Blood Urea Nitrogen 18 mg/dl (7-17); Calcium 9.1 mg/dl (8.4-10.2); Carbon Dioxide 29 mmol/L (22.0-30.0); Chloride 103 mmol/L (98-107); Estimated Glomerular Filt Rate 55 ml/min (>60); GFR (African American) 67 ML/MIN (>60); Glucose 78 mg/dl (74-100); Phosphorous 4.6 mg/dl (2.5-4.5); Potassium 3.9 mmoL/L (3.5-5.1); Sodium 141 mmol/L (136-145)
[2023-04-13 09:33] LABS: 25-OH Vitamin D, Total 81.6 ng/mL (30-100)
== END ==
PROVIDERS: PCP Internal Medicine Adolescent Medicine; Visit Provider Internal Medicine Nephrology
DX: N18.31 Chronic kidney disease, stage 3a (principal); N25.81 Secondary hyperparathyroidism of renal origin; E55.9 Vitamin D deficiency, unspecified
CPT/HCPCS: 36415; 80069; 81001; 82306; 82570; 83970; 84155; 85025

== ENCOUNTER → 2023-05-02 07:57 | Outpatient (CLI) | payer MEDICARE, BC, OTHER, SELFPAY ==
[2023-05-02 09:05] LABS: Erythrocyte Sedimentation Rate 19 mm/hr (0-30)
[2023-05-02 09:47] LABS: Alanine Aminotransferase 25 U/L (12-78); Albumin/Globulin Ratio 1.5 (1.1-1.8); Alkaline Phosphatase 104 U/L (38-126); Aspartate Amino Transferase 39 U/L (14-36); Bilirubin,Total 0.6 mg/dl (0.2-1.3); Blood Urea Nitrogen 16 mg/dl (7-17); Calcium 9.3 mg/dl (8.4-10.2); Carbon Dioxide 30 mmol/L (22.0-30.0); Chloride 104 mmol/L (98-107); Chol/HDL Ratio 2.6 (1-3.5); Cholesterol 181 mg/dl (140-200); Estimated Glomerular Filt Rate 55 ml/min (>60); GFR (African American) 67 ML/MIN (>60); Globulin 2.6 g/dL (1.3-3.2); Glucose 92 mg/dl (74-100); HDL Cholesterol 69 mg/dl (40-60); Sodium 140 mmol/L (136-145); Total Protein,Serum 6.6 g/dl (6.3-8.2); Triglycerides 263 mg/dl (30-150); VLDL Cholesterol 53 mg/dL (0-40)
[2023-05-02 09:58] LABS: Direct LDL Cholesterol 57.99 mg/dL (100-129)
[2023-05-02 10:18] LABS: Thyroid Stimulating Hormone 1.57 uIU/mL (0.465-4.68)
[2023-05-02 10:32] LABS: Hemoglobin A1C 5.1 % (4.0-6.0)
[2023-05-03 08:46] LABS: C-Reactive Protein 0.9 mg/L (0-4)
[2023-05-04 12:10] LABS: Anti-Cyclic Citrullinated Pept 0 units (0-19)
== END ==
PROVIDERS: PCP Internal Medicine Adolescent Medicine; Visit Provider Nurse Practitioner Family
DX: R73.9 Hyperglycemia, unspecified (principal); N18.9 Chronic kidney disease, unspecified; E78.5 Hyperlipidemia, unspecified; R53.83 Other fatigue; M25.50 Pain in unspecified joint
CPT/HCPCS: 36415; 80053; 80061; 83036; 84443; 85651; 86140; 86200

== ENCOUNTER → 2023-05-11 08:47 | Outpatient (CLI) | payer MEDICARE, BC, OTHER, SELFPAY ==
--- NOTE | 2023-05-11 08:55 | XR_ITS ---
FINAL REPORT CLINICAL HISTORY: POST MENOPAUSAL COMPARISON: None FINDINGS: Using 08/05, the bone mineral density of the right forearm is 0.377 g/cm2, corresponding to T-score of -5.3, consistent with osteoporosis. Using the left hip, the bone mineral density of the femoral neck is 0.750 g/cm2, corresponding to a T-score of -1.6, consistent with low bone density. FRAX 10 year fracture risk is 1.5% for a hip fracture and 13% for a major osteoporotic fracture. NOTE: T-score: Standard deviation compared with peak bone mass of young adult mean. *Following the recommendations of the International Society of Bone densitometry, classification of hip BMD is based on the lower of two T-scores; total hip or femoral neck. IMPRESSION: Diminished bone mineral density consistent with osteoporosis. Reviewed, Interpreted and Dictated by Ravi Perez III, MD Transcribed by Yelena Davenport Authenticated and [facility]
== END ==
PROVIDERS: PCP Internal Medicine Adolescent Medicine; Visit Provider Nurse Practitioner Family
DX: Z78.0 Asymptomatic menopausal state (principal)
CPT/HCPCS: 77080

== ENCOUNTER 2023-05-22 10:09 | Day surgery (SDC) | payer MEDICARE, BC, OTHER, SELFPAY ==
[2023-04-23 10:10] VITALS: BMI 29.7
[2023-05-22 10:23] VITALS: BP 138/75; PULSE 71; RESP 17; TEMP 36.6; O2SAT 94
--- NOTE | 2023-05-22 12:15 | P.PNANES_ITS ---
[facility] Disclaimer: The information contained in this section may have been updated after the patient was seen, as this information can be updated by other users. Medical History Abscess of vulva History of back pain History of back pain Hot flashes Ileus, unspecified Retinal detachment Surgical History History of appendectomy 1972 History of cataract surgery 2009 History of cholecystectomy 1976 History of colectomy 2006 History of foot surgery right toes History of hip replacement right, 07/22/2019 History of hysterectomy 1985 History of lumbar surgery 10/16/2021 History of lumpectomy History of right shoulder replacement 2018 History of surgery on left wrist 2016 Hx of cervical spine surgery 07/31/2021 Family History Mother Cancer Bone Diabetes Sister Diabetes Social History Smoking Status: Never smoker second hand exposure: No alcohol intake: never substance use type: denies use current occupational status: retired Travel in the last 8 weeks: None household members: spouse housing: house education level: high school current occupation: retired from [employer] current occupational exposures/hazards: No caffeine: Yes [facility] Anesthesia Checklist Patient Identification Patient Identification: Arm Band, Family and Verbal (Name & ) Structural Data Admitted From: Home Planned Operative Procedure/s: Spinal Cord Stimulator generator & leads placement Consent for Planned Operative Procedure(s) Verified: Yes Verified Documents: Surgical Consent and History and Physical NPO Status Verified Time NPO: 21:00 Chart Verification Results Verified: CBC, BMP, ECG and Chest Xray Additional verifications Patient : No Anesthesia Reactions: Yes (PONV) Hx Blood Transfusions: No Blood Transfusion Reaction: No Cephalosporin Allergy: No Previous Colonoscopy: No Cardiovascular Assessment Heart Sounds: S1 & S2 Pulse Rhythm: Irregular Peripheral Edema: No Airway Assessment Mallampati Score:: Class II C-Spine Mobility Assessed: Yes (Limited. s/p Cervical spine surgery) TMJ Mobility Assessed: Yes Dentition: Dentures-good fit (Upper. Not loose per pt. Lower removed) Neurological Assessment Level of Consciousness: Awake, Alert, Appropriate and Follows Commands Hx Seizures: No Numbness or tingling in extremities: No Anesthesia Plan Anesthesia Risk discussed: Yes Anesthesia Plan: Verified ASA Class: III Anesthesia Type: MAC
[2023-05-22 14:26] VITALS: BP 123/68; PULSE 74; TEMP 36.3; O2SAT 97
[2023-05-22 14:34] VITALS: BP 123/58; PULSE 66; RESP 20; O2SAT 99
--- NOTE | 2023-05-22 14:42 | EXP.ANES.I ---
[facility] Anesthesia Record Part I Anesthesia Record I Intake, IV Amount: 400 Hydration: Adequate Estimated blood loss (mL): 10 Urine output (mL): 0 Blood Products used (#): none Blood Pressure: 123/68 SaO2: 98 Pulse Rate: 71 Airway Patency: Patent Respiratory Rate: 20 Temperature: 97.6 F Patient is:: Awake (Talking) and Stable Stable to PACU at:: 14:29
[2023-05-22 14:43] VITALS: BP 123/68; PULSE 71; RESP 20; TEMP 36.4; O2SAT 98
[2023-05-22 14:44] VITALS: BP 111/65; PULSE 65; RESP 18; O2SAT 99
[2023-05-22 14:54] VITALS: BP 112/60; BP 112/66; PULSE 60; RESP 18; O2SAT 99
--- NOTE | 2023-05-22 16:23 | SUR.PREOP ---
Dr Kidd aware of lab results being older than 30 days old for this patient.
--- NOTE | 2023-05-22 16:36 | P.OP_ITS ---
Date of procedure: 05/22/23 Pre-op Diagnosis:: Postlaminectomy syndrome lumbar spine with lumbar radiculopathy symptoms Post-op Diagnosis:: Same Procedure performed:: Permanent placement spinal cord stimulator with epidural lead placement x2 and generator placement Surgeon:: Sagar Kidd MD PROGRAM DEVELOPMENT SPECIALIST:: Other Anesthesia: MAC Estimated blood loss (mL): 5 Clinical Note:: This patient is a pleasant 67-year-old white female who we are treating for low back pain with lumbar radiculopathy symptoms and postlaminectomy syndrome lumbar spine. She has failed all previous conservative treatments including injections, oral medications, physical therapy as she is not a candidate for any further surgery. She has had a successful psychological evaluation and a successful spinal cord stimulator trial. She presents for permanent placement of her spinal cord stimulator today. She initially had attempted placement of her spinal cord stimulator Thursday however due to equipment problems we had to abort the procedure. She presents for completion of this procedure today. Operative findings:: None Operative note:: Informed consent was obtained risk and benefits of the procedure were explained to the patient. Patient was taken the operating room placed prone on the procedure table. She was prepped and draped in sterile fashion. We removed sutures from her previous incisions on Thursday generator pocket was on the left side. C-arm fluoroscopy was used to view the lumbar spine. A 17-gauge needle was placed into the back incision after removing all sutures this needle was ad vanced into the L1-L2 interspace. After confirmation of needle placement in the epidural space stimulating lead was inserted and advanced very easily to the T7 vertebral body. A second needle was inserted advanced again into the L1-L2 interspace. Again after confirmation of needle placement in the epidural space a second lead was inserted and advanced again to the T7 vertebral body. Leads were checked in AP and lateral views. The needles and stylets were removed. The leads were tunneled to the generator pocket that was created on the left flank. We attached the leads to the generator. Impedances were checked and found to be okay. The generator was placed in the pocket. Both incisions were irrigated with antibiotic solution. Both incisions were then closed with 2-0 Vicryl followed by 4-0 nylon and subcutaneous zahra. Patient tolerated the procedure well with no complications. Patient was programmed by the [employer] sales representative public utilities with good stimulation on all areas of pain. Patient was discharged home neurologic intact with good relief of pain symptoms. Plan and disposition: We will follow-up with this patient in 1 week for reprogram. We will follow-up in 2 to 3 weeks for suture removal. Condition: stable Disposition: PACU Complications:: None
== END 2023-05-22 15:09 | disposition home or self-care (01) ==
PROVIDERS: PCP Internal Medicine Adolescent Medicine; Visit Provider Anesthesiology
PROC: (CPT 63650; principal; 2023-05-22 11:30)
DX: M96.1 Postlaminectomy syndrome, not elsewhere classified (principal); M54.16 Radiculopathy, lumbar region
CPT/HCPCS: 63650 ×2; 63685; 96374; C1778; C1820

== ENCOUNTER 2023-05-26 13:24 | Outpatient (CLI) | payer MEDICARE, BC, OTHER, SELFPAY ==
[2023-05-26 13:43] VITALS: BP 109/65; PULSE 69; RESP 18; TEMP 36.8; O2SAT 99
== END 2023-05-26 14:05 | disposition home or self-care (01) ==
LOC: INF 13:25
PROVIDERS: PCP Internal Medicine Adolescent Medicine; Visit Provider Nurse Practitioner Family
DX: M81.0 Age-related osteoporosis without current pathological fracture (principal)
CPT/HCPCS: 96372; J0897

== ENCOUNTER → 2023-05-28 09:39 | Outpatient (POV) | payer MEDICARE, BC, OTHER, SELFPAY ==
--- NOTE | 2023-05-28 10:07 | P.PCN_ITS ---
Procedure Date: 05/28/23 Time: 10:07 Anesthesiologist:: Amna Wood APRN Complications:: None Pre-procedure Diagnosis:: Degenerative disc disease of lumbar spine with lumbar radiculopathy symptoms, lumbar postlaminectomy syndrome Post-procedure Diagnosis:: Same Indications for Procedure:: Patient is a pleasant 67-year-old female who presents today for follow-up of spinal cord stimulator implant 1 week ago. We are currently treating the patient for degenerative disc disease of lumbar spine with lumbar radiculopathy symptoms, lumbar postlaminectomy syndrome. Today she rates her pain a 8 out of 10. Patient states she is experiencing worsening pain around her incision sites from the procedure. She does state that the spinal cord stimulator has been able to help some of her leg symptoms when she is doing certain activities like prolonged sitting. She does state that she feels like she could use adjustment. She is scheduled to meet with [employer] sales representative cash registers tomorrow for reprogramming of this device. Patient is currently managed with bupivacaine 5 mg/mL with a daily dose of 2.5 mg/day. Patient denies any side effects from this medication. She states that she really has not noticed significant improvement. Patient is also prescribed oxycodone 20 mg 3-4 times per day as needed. Patient denies any side effects from this medication. She states she would like refills. Her Romeo has been reviewed and is appropriate. Physical Exam: General: Alert and oriented x3, no acute distress, pleasant and cooperative Lungs: Respirations even and unlabored, symmetrical chest expansion Eyes: PERRL Musculoskeletal: Flexion and extension of lumbar [spine] somewhat guarded secondary to pain, [antalgic gait noted] Neurological: Speech clear, no gross sensory deficit Skin: Incision sites are clean, dry, well approximated with no erythema noted sutures intact Procedure Details:: Informed consent was obtained and the risk and benefits of the procedure were explained to the patient. Patient was taken to the procedure room where noninvasive monitoring was placed including noninvasive blood pressure cuff and pulse oximeter. Patient's pump was interrogated and was reprogrammed to bupivacaine 2.75 mg/day. The patient tolerated the procedure well with no complications. Plan and Disposition:: Patient's incisions are clean, dry, well approximated with no erythema noted and sutures intact. I have counseled the patient that she is to continue her postop restrictions of minimal bending, twisting or lifting, no submerging in water until her incisions are fully healed and to continue to wear her abdominal binder to prevent seroma formation. I have also counseled the patient that we will plan on following up next week with suture removal and applying skin glue and Steri-Strips if indicated. Patient tolerated her intrathecal increase with no complications and was discharged neurologically intact. I will send in a refill of her oxycodone 20 mg 4 times a day and provide a 1 month supply of this medication. Patient will return to clinic in 1 week for reevaluation of symptoms and plan of care. Patient has been advised of risks of oversedation with the prescribed medication. Narcan has been offered to the patient in the event of oversedation. Patient has been advised that a family member should also be educated regarding administration of Narcan. Patient has been instructed to contact the clinic with any concerns before the next appointment. Dr. Kidd has reviewed this note and agrees with this plan of care. This note was dictated using voice recognition software and make contain errors or omissions.
[2023-05-28 10:34] VITALS: BP 112/66; PULSE 82; RESP 18; O2SAT 97; BMI 29.7
== END | disposition home or self-care (01) ==
PROVIDERS: PCP Internal Medicine Adolescent Medicine; Visit Provider Nurse Practitioner Family
DX: M51.16 Intervertebral disc disorders with radiculopathy, lumbar region (principal); M96.1 Postlaminectomy syndrome, not elsewhere classified; Z97.8 Presence of other specified devices
CPT/HCPCS: 62368; 99212; G0463

== ENCOUNTER → 2023-06-05 13:16 | Outpatient (POV) | payer MEDICARE, BC, OTHER, SELFPAY ==
[2023-06-05 13:51] VITALS: BP 155/85; PULSE 86; RESP 18; O2SAT 96; BMI 30.5
--- NOTE | 2023-06-05 14:03 | EXP.PAIN.PRO ---
Procedure Date: 06/05/23 Time: 14:03 Anesthesiologist:: Amna Wood APRN Complications:: None Pre-procedure Diagnosis:: Degenerative disc disease of lumbar spine with lumbar radiculopathy symptoms, lumbar postlaminectomy syndrome Post-procedure Diagnosis:: Same Indications for Procedure:: Patient is a pleasant 67-year-old female who presents today for intrathecal adjustment and reprogram. We are currently treating the patient for degenerative disc disease of lumbar spine with lumbar radiculopathy symptoms, lumbar postlaminectomy syndrome. Today she rates her pain an 8 out of 10. Patient denies any new trauma or injury. Patient is postop from her [employer] spinal cord stimulator placement. Patient did meet with public service representative this morning and was reprogrammed. Patient states that she has not noticed significant improvement yet with this programming however was told it may take a day or 2 for it really to be noticeable. Patient is currently managed with bupivacaine 5 mg/ml with a daily dose of 2.75 mg/day. She denies any side effects from this medication. Previously the patient did have intrathecal fentanyl however she was hospitalized for possible overdose symptoms however it was later realized that she had COVID and was given a new medication that she had a reaction to. Patient is now on oral oxycodone 20 mg 3-4 times per day however she states this does not do as well as what her previous pump medication did. Her Romeo has been reviewed and is appropriate. Physical Exam: General: Alert and oriented x3, no acute distress, pleasant and cooperative Lungs: Respirations even and unlabored, symmetrical chest expansion Eyes: PERRL Musculoskeletal: Flexion and extension of lumbar [spine] somewhat guarded secondary to pain, [antalgic gait noted] Neurological: Speech clear, no gross sensory deficit Skin: Incision sites clean, dry, well approximated with sutures intact, minimal erythema noted Procedure Details:: Informed consent was obtained and the risk and benefits of the procedure were explained to the patient. Patient was taken to the procedure room where noninvasive monitoring was placed including noninvasive blood pressure cuff and pulse oximeter. Patient's pump was interrogated and was reprogrammed to bupivacaine 3.03 mg/day. The patient tolerated the procedure well with no complications. Plan and Disposition:: Patient tolerated her intrathecal increase with no complications and was discharged neurologically intact. I will order the patient a compounded cream. I have discussed with the patient if at a later date she would like to proceed forward with going back to her previous opioid pain medication in her pump that she can just let us know. At the time of her hospitalization with overdose symptoms we did empty her pump and verify that there was no discrepancies. Patient did have some sutures removed during today's visit however we will wait to remove the remaining sutures next week. I have counseled the patient to continue her postop restrictions the full 6 weeks. Patient will return to clinic in 1 week for reevaluation of symptoms and plan of care. Patient has been instructed to contact the clinic with any concerns before the next appointment. Dr. Kidd has reviewed this note and agrees with this plan of care. This note was dictated using voice recognition software and make contain errors or omissions. -- It Is medically necessary for this patient to continue to have their intrathecal pump refilled at regular intervals. This patient had an intrathecal pain pump implanted after meeting criteria of chronic intractable pain for greater than 3 months and failing conservative treatments. Patient has committed and been compliant to the treatment plan and all planned follow up care. Since implantation of the intrathecal pain pump, the patient has had decreased pain and been more functional. Oral medications have been reduced including
== END | disposition home or self-care (01) ==
PROVIDERS: PCP Internal Medicine Adolescent Medicine; Visit Provider Nurse Practitioner Family
DX: M51.16 Intervertebral disc disorders with radiculopathy, lumbar region (principal); M96.1 Postlaminectomy syndrome, not elsewhere classified; Z97.8 Presence of other specified devices
CPT/HCPCS: 62368; 99213; G0463

== ENCOUNTER → 2023-06-11 10:42 | Outpatient (POV) | payer MEDICARE, BC, OTHER, SELFPAY ==
--- NOTE | 2023-06-11 11:11 | EXP.PAIN.SOA ---
[facility] Pain Management SOAP Note Subjective:: Patient is a pleasant 67-year-old female who presents today for suture removal. We are currently treating the patient for degenerative disc disease of lumbar spine with lumbar radiculopathy symptoms, lumbar postlaminectomy syndrome. Today she rates her pain a 9 out of 10. Patient denies any new trauma or injury. She denies any change location or type of pain she experiences. Patient did have some of her sutures removed at last week's visit however she had some that needed to remain for another week. Patient also had an adjustment last week however this ended up not being successfully changed and the patient did have to come back yesterday to get it adjusted to the intrathecal bupivacaine 5 mg/mL with a daily dose of 3.03 mg/day. She does state today that she has not had any side effects however she has not noticed significant improvement up until this point. Patient is now on oral oxycodone 20 mg 4 times per day. Patient continues to state that this does not make significant improvement and that she has really been thinking about putting the opioid pain medication back in her pump. Patient does state today that she wants to give this increase sometime to see if that will improve her symptoms before proceeding forward with the opioid pain medication change. Her Romeo has been reviewed and is appropriate. Review of Systems: General: No recent weight changes, no fever, no sleep disturbances Respiratory: No cough, no shortness of air, no recurring pulmonary infections Cardiovascular/peripheral vascular: No chest pain, no palpitations, no edema, no shortness of breath Gastrointestinal: No new onset incontinence, normal bowel movements reported Genitourinary: No new onset incontinence Musculoskeletal: Low back pain Psychiatric: [Normal mood/affect] Neurological: [Denies weakness in extremities], [denies balance issues] Objective:: Physical Exam: General: Alert and oriented x3, no acute distress, pleasant and cooperative Lungs: Respirations even and unlabored, symmetrical chest expansion Eyes: PERRL Musculoskeletal: Flexion and extension of lumbar [spine] somewhat guarded secondary to pain, [antalgic gait noted] Neurological: Speech clear, no gross sensory deficit Incision sites clean, dry, well approximated with minimal erythema noted, sutures intact Assessment:: Degenerative disc disease of lumbar spine with lumbar radiculopathy symptoms, lumbar postlaminectomy syndrome Plan:: Patient did have the remainder of her sutures removed along with 2 dissolvable zahra that were sticking out causing irritation and pain for the patient. Patient had skin glue and Steri-Strips applied. I have counseled the patient to continue her 6-week postop restrictions. I have reviewed over again the risk and benefits of adding back the opioid pain medication to her pump. We will review this at future visits. Patient will return to clinic in 4 weeks for reevaluation of symptoms and plan of care. Patient has been instructed to contact the clinic with any concerns before the next appointment. Dr. Kidd has reviewed this note and agrees with this plan of care. This note was dictated using voice recognition software and make contain errors or omissions. -- It Is medically necessary for this patient to continue to have their intrathecal pump refilled at regular intervals. This patient had an intrathecal pain pump implanted after meeting criteria of chronic intractable pain for greater than 3 months and failing conservative treatments. Patient has committed and been compliant to the treatment plan and all planned follow up care. Since implantation of the intrathecal pain pump, the patient has had decreased pain and been more functional. Oral medications have been reduced including intake of oral opioids. Patient continues to do well with intrathecal therapy with decrease in pain symptoms and increase in functional status. Stopping intrathecal
[2023-06-11 12:44] VITALS: BP 121/70; PULSE 98; RESP 18; O2SAT 97; BMI 29.7
== END ==
PROVIDERS: PCP Internal Medicine Adolescent Medicine; Visit Provider Nurse Practitioner Family
DX: M51.16 Intervertebral disc disorders with radiculopathy, lumbar region (principal); M96.1 Postlaminectomy syndrome, not elsewhere classified; Z48.02 Encounter for removal of sutures; Z97.8 Presence of other specified devices
CPT/HCPCS: 99212; 99213; G0463

== ENCOUNTER 2023-07-06 10:21 | Emergency (ER) | payer MEDICARE, BC, OTHER, SELFPAY ==
[2023-07-06 10:22] VITALS: BP 131/86; PULSE 77; RESP 18; O2SAT 98; BMI 29.7
--- NOTE | 2023-07-06 10:36 | XR_ITS ---
FINAL REPORT CLINICAL HISTORY: fall, pain FINDINGS: RIGHT KNEE 3 views of the right knee were obtained. There is no acute fracture or dislocation. Visualized joint spaces are normally aligned. There are mild to moderate degenerative changes, worst of the patellofemoral compartment. Soft tissues are unremarkable. IMPRESSION: No acute bony abnormality. Reviewed, Interpreted and Dictated by Ravi Perez III, MD Transcribed by Barbara Bailey Authenticated and [facility]
--- NOTE | 2023-07-06 10:36 | XR_ITS ---
FINAL REPORT CLINICAL HISTORY: fall, pain FINDINGS: 3 views of the elbow were obtained. There is no acute fracture or dislocation. The joint spaces are intact. There are mild degenerative changes. There is not soft tissue abnormality. IMPRESSION: No acute fracture Reviewed, Interpreted and Dictated by Ravi Perez III, MD Transcribed by Barbara Bailey Authenticated and [facility]
--- NOTE | 2023-07-06 10:36 | CT_ITS ---
FINAL REPORT CLINICAL HISTORY: fall, >63 FINDINGS: Axial CT images of the cervical spine were obtained without contrast. Sagittal and coronal reformatted images were also obtained. This study was performed with techniques to keep radiation doses as low as reasonably achievable (ALARA). Individualized dose reduction techniques using automated exposure control or adjustment of mA and/or kV according to the patient''s size were employed. There is no evidence of fracture or dislocation. The bony alignment is normal. Postoperative changes are seen from fusion at C6-7. Multilevel mild degenerative changes are noted with multilevel osteophytes present. Mild neural foraminal narrowing is seen in the lower cervical spine There is no evidence of canal stenosis. No paraspinous soft tissue abnormality is seen. Limited images of the upper thorax are unremarkable. IMPRESSION: No fracture or acute bony abnormality identified. Degenerative changes with postoperative changes from fusion at C6-7. Authenticated and [facility]
--- NOTE | 2023-07-06 10:36 | XR_ITS ---
FINAL REPORT CLINICAL HISTORY: fall, pain FINDINGS: RIGHT HUMERUS 2 views of the right humerus were obtained. There are postoperative changes of right shoulder arthroplasty. A presumed loose body is seen at superior aspect of the right shoulder. No acute fracture or dislocation is seen. IMPRESSION: No acute fracture or dislocation of the right humerus. Reviewed, Interpreted and Dictated by Ravi Perez III, MD Transcribed by Barbara Bailey Authenticated and [facility]
--- NOTE | 2023-07-06 10:36 | CT_ITS ---
FINAL REPORT CLINICAL HISTORY: fall, >63 COMPARISON: March 29, 2023 FINDINGS: Axial images of the head were obtained without contrast. Coronal reformatted images were also obtained.This study was performed with techniques to keep radiation doses as low as reasonably achievable (ALARA). Individualized dose reduction techniques using automated exposure control or adjustment of mA and/or kV according to the patient''s size were employed. There is no evidence of intracranial hemorrhage or mass. The ventricular size is within normal limits. There is no evidence of shift of the midline structures. No abnormal extra axial fluid collection is identified. No skull abnormality is seen on the bone window images. There is ectasia of the distal right vertebral artery that is visually stable since the prior CTA. Postoperative changes are noted of the left globe. IMPRESSION: No acute intracranial abnormality. Authenticated and [facility]
--- NOTE | 2023-07-06 10:36 | XR_ITS ---
FINAL REPORT CLINICAL HISTORY: fall, pain FINDINGS: 2 views of the right forearm were obtained. There is a nondisplaced fracture of the ulnar styloid process and distal radius. Mild degenerative changes are noted. There are no soft tissue abnormalities. IMPRESSION: Nondisplaced fractures of the ulnar styloid process and distal radius. Reviewed, Interpreted and Dictated by Ravi Perez III, MD Transcribed by Barbara Bailey Authenticated and [facility]
--- NOTE | 2023-07-06 10:36 | XR_ITS ---
FINAL REPORT CLINICAL HISTORY: fall, pain FINDINGS: RIGHT HAND Three views demonstrate a nondisplaced fracture of the distal radius extending to the radiocarpal joint. There is also a nondisplaced fracture of the ulnar styloid process. The visualized joint spaces are normally aligned. The soft tissues are unremarkable. IMPRESSION: Nondisplaced fracture of the distal radius extending to the radiocarpal joint and nondisplaced fracture of the ulnar styloid process. Reviewed, Interpreted and Dictated by Ravi Perez III, MD Transcribed by Barbara Bailey Authenticated and [facility] [place] [place]
--- NOTE | 2023-07-06 10:36 | XR_ITS ---
FINAL REPORT CLINICAL HISTORY: fall, pain FINDINGS: RIGHT SHOULDER Three views demonstrate no acute fracture or dislocation. The visualized joint spaces are normally aligned. There are postoperative changes of right shoulder arthroplasty. A presumed loose body is seen at the superior aspect of the right shoulder. The soft tissues are unremarkable. IMPRESSION: No acute process. Reviewed, Interpreted and Dictated by Ravi Perez III, MD Transcribed by Barbara Bailey Authenticated and [facility]
--- NOTE | 2023-07-06 10:36 | XR_ITS ---
FINAL REPORT CLINICAL HISTORY: fall, pain FINDINGS: RIGHT WRIST Three views demonstrate a nondisplaced fracture of the ulnar styloid process and nondisplaced fracture of the distal radius. There are mild degenerative changes. IMPRESSION: Nondisplaced fracture of the ulnar styloid process and distal radius. Reviewed, Interpreted and Dictated by Ravi Perez III, MD Transcribed by Barbara Bailey Authenticated and [facility]
--- NOTE | 2023-07-06 11:21 | HMH.EDGENADL ---
Discharge Plan Disposition Patient Disposition: Home, Self-Care Condition: Good Prescriptions Prescriptions: New hydrocodone-acetaminophen 5-325 mg tablet 1 tab PO Q8H PRN (Reason: pain) Qty: 12 0RF No Action levothyroxine 88 mcg tablet 88 mcg PO DAILY hydrocortisone 5 mg tablet 5 mg PO BID Patient Comments: TAKE ONE TABLET BY MOUTH TWICE DAILY duloxetine [Cymbalta] 60 mg capsule,delayed release(DR/EC) 60 mg PO BID Patient Comments: TAKE 1 CAPSULE BY MOUTH TWICE DAILY rosuvastatin [Crestor] 20 mg tablet 20 mg PO DAILY Patient Comments: TAKE 1 TABLET BY MOUTH ONCE DAILY FOR 90 DAYS Ubrelvy 100 mg tablet 100 mg PO DAILYP PRN (Reason: MIGRAINES) omeprazole 40 mg capsule,delayed release(DR/EC) 40 mg PO DAILY sodium bicarbonate 650 MG tablet 650 mg PO DAILY eszopiclone [Lunesta] 3 MG tablet 3 mg PO HS albuterol sulfate [Ventolin HFA] 108 HFA aerosol inhaler 2 puffs PO Q4HP PRN (Reason: Shortness Of Breath) Patient Comments: geriatric [id number] 1 EACH tablet 1 each PO DAILY lamotrigine 100 MG tablet 100 mg PO BID memantine [Namenda] 10 MG tablet 10 mg PO BID montelukast 10 MG tablet 10 mg PO PM quetiapine 300 mg tablet 300 mg PO HS Patient Comments: TAKE 1 TABLET BY MOUTH ONCE DAILY AT NIGHT budesonide-formoterol [Symbicort] 160-4.5 mcg/actuation HFA aerosol inhaler 2 inh INHALATION BIDRT Patient Comments: INHALE 2 PUFFS BY MOUTH TWICE DAILY formoterol fumarate 20 mcg/2 mL solution for nebulization 2 ml INHALATION BIDRT PRN (Reason: SHORTNESS OF BREATH) Patient Comments: INHALE 1 VIAL BY NEBULIZER TWICE DAILY donepezil [Aricept] 23 mg tablet 23 mg PO DAILY Patient Comments: TAKE 1 TABLET BY MOUTH ONCE DAILY Dupixent Pen 300 mg/2 mL pen injector 300 mg SQ QOW ropinirole 1 mg tablet 1 mg PO BID Qty: 60 0RF Nurtec ODT 75 mg Tablet,Disintegrating 75 mg PO DAILY oxycodone 20 mg tablet 20 mg PO QID Qty: 120 0RF Referrals Follow up/Referrals: Sidney Wood DO [Staff Physician] - See instructions Marc Rodriguez MD [Primary Care Provider] - See instructions Activity Restrictions/Add. Instructions Additional Instructions/Restrictions: You were evaluated in the emergency department today. Please follow-up closely with orthopedics. Keep your splint on, clean, and dry until you see them. We have provided you with information for follow-up with Dr. Wood. supervisor propellant charge loading your prescription for pain medication and take as needed for severe pain. You may also take ibuprofen in addition to this. Return to the emergency department for new or worsening symptoms. Clinical Impressions Clinical Impression: Fracture of right wrist Qualifiers: Encounter type: initial encounter Fracture type: closed Qualified Code(s): S62.101A - Fracture of unspecified carpal bone, right wrist, initial encounter for closed fracture Instructions Patient Instructions: DI for Wrist Fracture Discharge ED Provider: Amna Echevarria General Adult HPI General Chief complaint: Extremity Injury, Upper [place]: [place] [id number] injured rt arm at home12 Time Seen by Provider: 07/06/23 10:36 Mode of Arrival: Ambulatory Source of Information: Patient Limitations: No Limitations Description of Symptoms (Recalled from ER Triage Doc. by RN): c/o right limb pain from shoulder to hand due to her fall this am after tripping over her slippers. Denies hitting her head or any LOC History of Present Illness HPI narrative: This patient is a 67-year-old female with a history of CKD, hyperlipidemia and hypothyroidism presenting to the emergency department for evaluation with concern for right upper extremity pain after a fall. She reports that she was walking through her house just prior to arrival when she tripped over her slipper, landing on her right arm and right knee
--- NOTE | 2023-07-06 12:33 | PC.NURSE ---
pt okayed for to have an update about her care at this time.. pepsi given to pt, ok by
[2023-07-06 12:43] VITALS: BP 160/85; PULSE 68; RESP 18; TEMP 36.4; O2SAT 97
[2023-07-06 13:58] VITALS: BP 160/85; PULSE 68; RESP 18; TEMP 36.4; O2SAT 97
== END 2023-07-06 14:05 | disposition home or self-care (01) ==
PROVIDERS: Emergency Provider Emergency Medicine; PCP Internal Medicine Adolescent Medicine
DX: S52.614A Nondisplaced fracture of right ulna styloid process, initial encounter for closed fracture (principal); S52.501A Unspecified fracture of the lower end of right radius, initial encounter for closed fracture; E03.9 Hypothyroidism, unspecified; N18.9 Chronic kidney disease, unspecified; E78.5 Hyperlipidemia, unspecified; W01.0XXA Fall on same level from slipping, tripping and stumbling without subsequent striking against object, initial encounter
CPT/HCPCS: 70450; 72125; 73030; 73060; 73080; 73090; 73110; 73130; 73562; 99285

== ENCOUNTER 2023-08-13 09:38 | Outpatient (CLI) | payer MEDICARE, BC, OTHER, SELFPAY ==
--- NOTE | 2023-08-13 09:45 | XR_ITS ---
FINAL REPORT CLINICAL HISTORY: right wrist fx COMPARISON: 07/06/2023 FINDINGS: RIGHT WRIST Three views demonstrate increasing sclerosis in the distal radius consistent with healing fracture. There is a nondisplaced fracture of the ulnar styloid process. The visualized joint spaces are normally aligned. The soft tissues are unremarkable. IMPRESSION: Healing distal radius fracture. Nondisplaced fracture ulnar styloid process Reviewed, Interpreted and Dictated by Ravi Perez III, MD Transcribed by Yelena Davenport Authenticated and [facility]
== END 2023-08-13 23:59 ==
LOC: RAD 09:40
PROVIDERS: PCP Internal Medicine Adolescent Medicine; Visit Provider Orthopaedic Surgery
DX: S62.101A Fracture of unspecified carpal bone, right wrist, initial encounter for closed fracture (principal)
CPT/HCPCS: 73110

== ENCOUNTER 2023-08-13 10:35 | Outpatient (RCR) | payer MEDICARE, BC, OTHER, SELFPAY | END 2023-08-13 11:30 | disposition home or self-care (01) | LOC: OT 10:35 | PROVIDERS: Visit Provider Orthopaedic Surgery | DX: M25.531 Pain in right wrist (principal); S62.101A Fracture of unspecified carpal bone, right wrist, initial encounter for closed fracture | CPT/HCPCS: 97763 ==

== ENCOUNTER 2023-09-10 10:24 | Outpatient (CLI) | payer MEDICARE, BC, OTHER, SELFPAY ==
--- NOTE | 2023-09-10 10:27 | XR_ITS ---
FINAL REPORT CLINICAL HISTORY: rigth wrist fx COMPARISON: 08/13/2023 FINDINGS: AP, oblique, and lateral views of the right wrist were obtained. There is a subacute impacted fracture of the distal radius, as well as a nondisplaced ulnar styloid fracture, both of which are stable and unchanged in appearance since the prior films of August 13. No new bony abnormality is identified. The joint spaces are preserved. The soft tissues are normal. IMPRESSION: Stable subacute impacted distal radial fracture and nondisplaced ulnar styloid fracture. Reviewed, Interpreted and Dictated by Ravi Perez III, MD Transcribed by Lucero Reddy Authenticated and [facility]
== END 2023-09-10 23:59 ==
LOC: RAD 10:25
PROVIDERS: PCP Internal Medicine Adolescent Medicine; Visit Provider Orthopaedic Surgery
DX: S62.101D Fracture of unspecified carpal bone, right wrist, subsequent encounter for fracture with routine healing (principal); Y99.9 Unspecified external cause status
CPT/HCPCS: 73110

== ENCOUNTER 2023-10-07 09:23 | Outpatient (CLI) | payer MEDICARE, BC, OTHER, SELFPAY ==
[2023-10-07 10:00] LABS: Basophils # 0.1 K/mm3 (0-0.2); Basophils % 1.2 % (0.1-2.0); Eosinophils # 0.2 K/mm3 (0.0-0.4); Eosinophils % 4.3 % (0.1-12.0); Hematocrit 39.2 % (37.0-47.0); Hemoglobin 12.8 g/dL (12.2-16.2); Lymphocytes # 1.6 K/mm3 (0.7-4.5); Lymphocytes % 39.5 % (10-50); Mean Corpuscular HGB Conc 32.6 g/dL (31.8-35.4); Mean Corpuscular Hemoglobin 33.6 pg (27.0-31.2); Mean Corpuscular Volume 102.9 fl (81-99); Mean Platelet Volume 8.3 fl (7.4-10.4); Monocytes # 0.4 K/mm3 (0.1-1.0); Monocytes % 8.5 % (1.7-9.3); Neutrophils # 1.9 K/mm3 (1.8-7.8); Neutrophils % 46.5 % (37.0-80.0); Platelet Count 212 K/mm3 (142-424); Red Blood Count 3.81 M/mm3 (4.20-5.40); Red Cell Distribution Width 12.9 % (11.5-17.5); White Blood Count 4.1 K/mm3 (4.8-10.8)
[2023-10-07 10:22] LABS: Anion Gap 10.2 mEq/L (5-15); Blood Urea Nitrogen 16 mg/dl (7-17); Calcium 9.6 mg/dl (8.4-10.2); Carbon Dioxide 29 mmol/L (22.0-30.0); Chloride 107 mmol/L (98-107); Estimated Glomerular Filt Rate 49 ml/min (>60); GFR (African American) 60 ML/MIN (>60); Glucose 89 mg/dl (74-100); Potassium 4.2 mmoL/L (3.5-5.1); Sodium 142 mmol/L (136-145)
[2023-10-07 16:17] LABS: Amphetamine/Metha Screen,Urine Negative ng/ml (<1000)
[2023-10-07 16:18] LABS: Barbiturates Screen,Urine Negative ng/ml (<200)
[2023-10-07 16:19] LABS: Benzodiazepines Screen,Urine Negative ng/ml (<200)
[2023-10-07 16:21] LABS: Phencyclidine Screen,Urine Negative ng/ml (<25)
[2023-10-07 16:22] LABS: Opiate Screen,Urine Positive ng/ml (<300)
[2023-10-07 16:23] LABS: Cannabinoid Screen,Urine Negative ng/ml (<50)
[2023-10-07 16:24] LABS: Cocaine Screen,Urine Negative ng/ml (<300); Methadone Screen,Urine Negative ng/ml (<300)
== END 2023-10-07 23:59 ==
LOC: LAB 09:23
PROVIDERS: PCP Internal Medicine Adolescent Medicine; Visit Provider Anesthesiology
DX: Z01.812 Encounter for preprocedural laboratory examination; M51.36 Other intervertebral disc degeneration, lumbar region; Z79.899 Other long term (current) drug therapy
CPT/HCPCS: 36415; 80048; 80307; 85025

== ENCOUNTER 2023-10-09 10:58 | Day surgery (SDC) | payer MEDICARE, BC, OTHER, SELFPAY ==
[2023-10-06 12:21] VITALS: BMI 29.7
[2023-10-09 11:29] VITALS: BP 121/56; PULSE 72; RESP 18; TEMP 36.6; O2SAT 95
[2023-10-09] MEDS: VANCOMYCIN/WATER FOR INJ (PEG) 1.75 GM/350 ML PIGGYBACK IV ×2 (11:37→14:30)
[2023-10-09] MEDS: LACTATED RINGERS 1000ML 1,000 ML 25 ML IV (11:37)
--- NOTE | 2023-10-09 12:56 | P.PNANES_ITS ---
[facility] Disclaimer: The information contained in this section may have been updated after the patient was seen, as this information can be updated by other users. Medical History Hot flashes Abscess of vulva Retinal detachment Ileus, unspecified History of back pain History of back pain Surgical History History of lumpectomy History of hip replacement History of right shoulder replacement History of surgery on left wrist History of foot surgery History of cataract surgery History of colectomy History of cholecystectomy History of appendectomy History of hysterectomy History of lumbar surgery Hx of cervical spine surgery Family History Mother Cancer Diabetes Sister Diabetes Social History Smoking Status: Never smoker second hand exposure: No alcohol intake: never substance use type: denies use current occupational status: retired Travel in the last 8 weeks: None household members: spouse housing: house education level: high school current occupation: retired from [employer] current occupational exposures/hazards: No caffeine: Yes [facility] Anesthesia Checklist Patient Identification Patient Identification: Arm Band and Verbal (Name & ) Structural Data Admitted From: Home Planned Operative Procedure/s: Complete pump change out Consent for Planned Operative Procedure(s) Verified: Yes NPO Status Verified Time NPO: 00:00 Additional verifications Anesthesia Reactions: Yes (PONV) Hx Blood Transfusions: Yes Blood Transfusion Reaction: No Airway Assessment Mallampati Score:: Class II C-Spine Mobility Assessed: Yes TMJ Mobility Assessed: Yes Dentition: Dentures-good fit Neurological Assessment Level of Consciousness: Awake Hx Seizures: No Numbness or tingling in extremities: No Anesthesia Plan Anesthesia Risk discussed: Yes Anesthesia Plan: Verified ASA Class: III Anesthesia Type: MAC
[2023-10-09] MEDS: SODIUM CHLORIDE 0.9% 20ML VIAL 40 ML IV (14:27)
[2023-10-09] MEDS: LIDOCAINE 2% W/EPI 1:100,000 20ML VIAL 40 ML (14:28)
[2023-10-09] MEDS: GENTAMICIN 80 MG/2 ML VIAL (14:29)
[2023-10-09 15:14] VITALS: BP 154/61; PULSE 66; RESP 16; TEMP 36.4; O2SAT 97
[2023-10-09 15:24] VITALS: BP 157/79; PULSE 69; RESP 16; O2SAT 95
[2023-10-09 15:34] VITALS: BP 161/61; PULSE 81; RESP 16; O2SAT 96
[2023-10-09 15:44] VITALS: BP 154/74; PULSE 80; RESP 17; O2SAT 97
--- NOTE | 2023-10-09 16:50 | EXP.OP.NOTE ---
Date of procedure: 10/09/23 Pre-op Diagnosis:: Nonfunctioning Flowonix intrathecal pain pump system for postlaminectomy syndrome lumbar spine with lumbar radiculopathy symptoms Post-op Diagnosis:: Same Procedure performed:: Replacement pain pump system with new intrathecal catheter tunneled and replacement of pain pump generator Surgeon:: Sagar Kidd MD GLOBAL CREATIVE CHAIRMAN:: Kathi Anderson Anesthesia: MAC Estimated blood loss (mL): 5 Clinical Note:: This patient is a pleasant 67-year-old white female who we have been treating for postlaminectomy syndrome lumbar spine with lumbar radiculopathy symptoms. She does have an intrathecal Dilaudid pain pump in place. She is currently going at 0.4 mg/day. She continues to have increasing pain and it is suspected that her pain pump system is not functioning appropriately. We will replace her pain pump system today. We will place a new intrathecal catheter and replace her pain pump generator as well today. We will continue her intrathecal Dilaudid 0.4 mg/day. Operative findings:: None Operative note:: Informed consent was obtained the risk and benefits of the procedure were explained to the patient. The patient was taken to the operating room placed prone on the procedure table. She was prepped and draped in sterile fashion. The skin and subcutaneous tissues overlying the pain pump was anesthetized using lidocaine. I made an incision dissected out the pain pump generator. I disconnected the catheter and tied off with 0 silk ties x 3. C-arm fluoroscopy was then used to view the lumbar spine. The skin and subcutaneous tissues adjacent to the L5-S1 interspace were anesthetized using lidocaine. I made incision and dissected down to the lumbar paraspinous fascia. A 17-gauge spinal needle was inserted and advanced into the L5-S1 interspace until clear CSF was obtained. After this intrathecal catheter was inserted and advanced very easily to the T8 vertebral body. The stylette of the catheter and the needle withdrawn. The catheter was in good position it was midline and posterior. I filled the pump with 6 mL of intrathecal Dilaudid 1 mg/mL. This was medication from her previous pump. We tunneled the catheter from the back to the pump pocket and attached catheter to the pump. We were able to freely withdraw clear CSF through the sideport. Both incisions were irrigated with antibiotic solution. The generator was placed in the pocket with an antibiotic pouch. Both incisions were then closed with 2-0 Vicryl followed by 4-0 nylon and subcutaneous zahra. The patient tolerated the procedure well with no complications. Pump was interrogated and an continued at 0.4 mg/day. Low reservoir alarm is October 18, 2023. Will refill her in our [place] office. Plan and disposition: Follow-up with this patient in 1 week for wound check and refill of her pump. Will plan on refilling her with intrathecal Dilaudid 1 mg per ml Condition: stable Disposition: PACU Complications:: None
== END 2023-10-09 15:47 | disposition home or self-care (01) ==
PROVIDERS: PCP Internal Medicine Adolescent Medicine; Visit Provider Anesthesiology
PROC: (CPT 62350; principal; 2023-10-09 12:30)
DX: Z45.1 Encounter for adjustment and management of infusion pump (principal); T85.698A Other mechanical complication of other specified internal prosthetic devices, implants and grafts, initial encounter; M96.1 Postlaminectomy syndrome, not elsewhere classified; M54.16 Radiculopathy, lumbar region
CPT/HCPCS: 62350; 62362; 96374; C1755; C1772; J2704

== ENCOUNTER 2023-10-28 07:17 | Outpatient (CLI) | payer MEDICARE, BC, OTHER, SELFPAY ==
[2023-10-28 07:54] LABS: Basophils # 0.1 K/mm3 (0-0.2); Basophils % 1.2 % (0.1-2.0); Eosinophils # 0.2 K/mm3 (0.0-0.4); Eosinophils % 5.3 % (0.1-12.0); Hematocrit 38.5 % (37.0-47.0); Hemoglobin 12.3 g/dL (12.2-16.2); Lymphocytes # 1.4 K/mm3 (0.7-4.5); Lymphocytes % 36.7 % (10-50); Mean Corpuscular HGB Conc 32.1 g/dL (31.8-35.4); Mean Corpuscular Hemoglobin 33.1 pg (27.0-31.2); Mean Corpuscular Volume 103.2 fl (81-99); Mean Platelet Volume 8.1 fl (7.4-10.4); Monocytes # 0.3 K/mm3 (0.1-1.0); Monocytes % 7.1 % (1.7-9.3); Neutrophils # 1.9 K/mm3 (1.8-7.8); Neutrophils % 49.7 % (37.0-80.0); Platelet Count 209 K/mm3 (142-424); Red Blood Count 3.73 M/mm3 (4.20-5.40); White Blood Count 3.9 K/mm3 (4.8-10.8)
[2023-10-28 08:35] LABS: Chloride 108 mmol/L (98-107)
[2023-10-28 08:36] LABS: Potassium 3.7 mmoL/L (3.5-5.1); Sodium 141 mmol/L (136-145)
[2023-10-28 08:38] LABS: Alanine Aminotransferase 16 U/L (12-78); Anion Gap 3.7 mEq/L (5-15); Aspartate Amino Transferase 34 U/L (14-36); Bilirubin,Unconjugated 0.2 mg/dL (0.0-1.1); Blood Urea Nitrogen 15 mg/dl (7-17); Carbon Dioxide 33 mmol/L (22.0-30.0); Estimated Glomerular Filt Rate 55 ml/min (>60); GFR (African American) 67 ML/MIN (>60)
[2023-10-28 08:39] LABS: Albumin Level 3.6 g/dl (3.5-5.0); Alkaline Phosphatase 86 U/L (38-126); Bilirubin,Direct 0.2 mg/dl (0.0-0.4); Bilirubin,Indirect 0.1 mg/dL (0.0-0.9); Bilirubin,Total 0.3 mg/dl (0.2-1.3); Calcium 9.5 mg/dl (8.4-10.2); Chol/HDL Ratio 2.6 (1-3.5); Cholesterol 161 mg/dl (140-200); Glucose 92 mg/dl (74-100); HDL Cholesterol 61 mg/dl (40-60); Triglycerides 159 mg/dl (30-150); VLDL Cholesterol 32 mg/dL (0-40)
[2023-10-28 08:50] LABS: Direct LDL Cholesterol 48.55 mg/dL (100-129)
== END 2023-10-28 23:59 ==
LOC: LAB 07:19
PROVIDERS: PCP Internal Medicine Adolescent Medicine; Visit Provider Internal Medicine Interventional Cardiology
DX: I10 Essential (primary) hypertension (principal); E78.00 Pure hypercholesterolemia, unspecified
CPT/HCPCS: 36415; 80048; 80061; 80076; 85025

== ENCOUNTER 2023-11-26 08:19 | Outpatient (CLI) | payer MEDICARE, BC, OTHER, SELFPAY ==
[2023-11-26 08:30] VITALS: BP 103/56; PULSE 65; RESP 18; TEMP 36.5; O2SAT 98
[2023-11-26] MEDS: DENOSUMAB 60 MG/ML SYRINGE SQ (08:30)
== END 2023-11-26 08:49 | disposition home or self-care (01) ==
LOC: INF 08:20
PROVIDERS: PCP Internal Medicine Adolescent Medicine; Visit Provider Nurse Practitioner Family
DX: M81.0 Age-related osteoporosis without current pathological fracture (principal)
CPT/HCPCS: 96372; J0897

== ENCOUNTER 2024-02-06 10:36 | Emergency (ER) | payer MEDICARE, BC, OTHER, SELFPAY ==
--- NOTE | 2024-02-06 11:31 | EXP.UTC ---
Discharge Plan Disposition Patient Disposition: Home, Self-Care Condition: Good Prescriptions Prescriptions: New doxycycline monohydrate 100 mg tablet 100 mg PO Q12 10 Days Qty: 20 0RF methylprednisolone 4 mg Tablets,Dose Pack 4 mg PO DIRECTED 6 Days Qty: 21 0RF Rx Instructions: Take 1 pack as directed for 6 days guaifenesin [Mucinex] 600 mg tablet extended release 12hr 600 - 1,200 mg PO BIDP PRN (Reason: Congestion) Qty: 30 0RF No Action levothyroxine 88 mcg tablet 88 mcg PO DAILY hydrocortisone 5 mg tablet 5 mg PO BID Patient Comments: TAKE ONE TABLET BY MOUTH TWICE DAILY duloxetine [Cymbalta] 60 mg capsule,delayed release(DR/EC) 60 mg PO BID Patient Comments: TAKE 1 CAPSULE BY MOUTH TWICE DAILY rosuvastatin [Crestor] 20 mg tablet 20 mg PO DAILY Patient Comments: TAKE 1 TABLET BY MOUTH ONCE DAILY FOR 90 DAYS Ubrelvy 100 mg tablet 100 mg PO DAILYP PRN (Reason: MIGRAINES) sodium bicarbonate 650 MG tablet 650 mg PO DAILY eszopiclone [Lunesta] 3 MG tablet 3 mg PO HS albuterol sulfate [Ventolin HFA] 108 HFA aerosol inhaler 2 puffs PO Q4HP PRN (Reason: Shortness Of Breath) Patient Comments: geriatric [id number]-[id number] 1 EACH tablet 1 each PO DAILY lamotrigine 100 MG tablet 100 mg PO BID memantine [Namenda] 10 MG tablet 10 mg PO BID montelukast 10 MG tablet 10 mg PO PM quetiapine 300 mg tablet 300 mg PO HS Patient Comments: TAKE 1 TABLET BY MOUTH ONCE DAILY AT NIGHT formoterol fumarate 20 mcg/2 mL solution for nebulization 2 ml INHALATION BIDRT PRN (Reason: SHORTNESS OF BREATH) Patient Comments: INHALE 1 VIAL BY NEBULIZER TWICE DAILY donepezil [Aricept] 23 mg tablet 23 mg PO DAILY Patient Comments: TAKE 1 TABLET BY MOUTH ONCE DAILY Dupixent Pen 300 mg/2 mL pen injector 300 mg SQ QOW Nurtec ODT 75 mg Tablet,Disintegrating 75 mg PO DAILY fluticasone furoate-vilanterol [Breo Ellipta] 100-25 mcg/dose blister with device 1 ea INHALATION DAILY Patient Comments: INHALE 1 PUFF BY MOUTH ONCE DAILY oxycodone 20 mg tablet 15 mg PO QID Referrals Follow up/Referrals: Marc Rodriguez MD [Primary Care Provider] - See instructions Activity Restrictions/Add. Instructions Additional Instructions/Restrictions: Drink plenty of fluids. Take tylenol for pain or fever. Stop the azithromycin that you were prescribed previously. Take the medications as directed. Follow up with your regular doctor. GO TO THE ER FOR ANY WORSENING SYMPTOMS Clinical Impressions Clinical Impression: Acute bronchitis, Allergic reaction Instructions Patient Instructions: DI for Acute Bronchitis, Doxycycline, Methylprednisolone Discharge ED Provider: Doug Reynoso [facility] HPI General Stated complaint: reaction to meds Time Seen by Provider: 02/06/24 11:31 History of Present Illness Provider Complaint: She states that for the past 4 days she has had sinus congestion and chest congestion. She was started on azithromycin by her pcp. She states that the day after she started taking this she began having mouth irritation and a blister on her lips. She has had the same reaction to erythromycin in the past. Related Data Home Medications Medication Instructions Recorded Confirmed eszopiclone 3 mg tablet (Lunesta) 3 mg PO HS Insomnia 10/09/17 02/06/24 sodium bicarbonate 650 mg tablet 650 mg PO DAILY Supplement 10/09/17 02/06/24 albuterol sulfate 90 mcg/actuation 2 puffs PO Q4HP PRN Shortness Of 10/19/17 02/06/24 aerosol inhaler (Ventolin HFA) Breath geriatric [id number]-[id number]-[id number] 1 each PO DAILY Diet supplement 10/14/19 11/26/23 lamotrigine 100 mg tablet 100 mg PO BID . 10/14/19 02/06/24 memantine 10 mg tablet (Namenda) 10 mg PO BID MEMORY 10/14/19 02/06/24 montelukast 10 mg tablet 10 mg PO PM Breathing Problems 10/14/19 02/06/24 duloxetine 60 mg capsule,delayed 60 mg PO BID MOOD 09/25/22 02/06/24 release (Cymbalta) hydrocortisone 5 mg tablet 5 mg PO BID Breathing Problems 09/25/22 02/06/24 levothyroxine 88 mcg tablet 88 mcg PO DAILY THYROID 09/25/22 02/06/24 rosuvastatin 20 mg tablet (Crestor) 20 mg PO DAILY Cholesterol 09/25/22 02/06/24 ubrogepant 100 mg tablet (Ubrelvy) 100 mg PO DAILYP PRN MIGRAINES 09/25/22 02/06/24 donepezil 23 mg tablet (Aricept) 23 mg PO DAILY MEMORY 03/29/23 02/06/24 dupilumab 300 mg/2 mL subcutaneous 300 mg SQ QOW Asthma 03/29/23 02/06/24 pen injector (Dupixent) formoterol fumarate 20 mcg/2 mL 2 ml inhalation BIDRT PRN 03/29/23 11/26/23 solution for nebulization SHORTNESS OF BREATH quetiapine 300 mg tablet 300 mg PO HS Insomnia 03/29/23 02/06/24 rimegepant 75 mg disintegrating 75 mg PO DAILY . 04/21/23 02/06/24 tablet (Nurtec ODT) fluticasone furoate 100 1 ea inhalation DAILY 02/06/24 02/06/24 mcg-vilanterol 25 mcg/dose inhalation powder (Breo Ellipta) oxycodone 20 mg tablet 15 mg PO QID Pain 02/06/24 02/06/24 Previous Rx's Medication Instructions Recorded doxycycline monohydrate 100 mg 100 mg PO Q12 10 days #20 tabs 02/06/24 tablet guaifenesin 600 mg tablet, 600 - 1,200 mg (1 - 2 x 600 mg) PO 02/06/24 extended release 12 hr (Mucinex) BIDP PRN Congestion #30 tabs methylprednisolone 4 mg tablets in 4 mg PO DIRECTED 6 days #21 tabs 02/06/24 a dose pack Allergies Allergy/AdvReac Type Severity Reaction Status Date / Time cephalexin Allergy Intermediate BLISTERS Verified 11/26/23 08:42 IN MOUTH AND THROAT clindamycin Allergy Intermediate Blister Verified 11/26/23 08:42 erythromycin base Allergy Intermediate BLISTERS Verified 11/26/23 08:42 IN MOUTH AND THROAT meropenem Allergy Unknown Verified 11/26/23 08:42 azithromycin Allergy Rash Verified 02/06/24 11:54 levofloxacin [From Levaquin] Allergy Verified 11/26/23 08:42 nirmatrelvir [From Paxlovid] Allergy Verified 11/26/23 08:42 ritonavir [From Paxlovid] Allergy Verified 11/26/23 08:42 pregabalin [From Lyrica] AdvReac Mild Hallucinati Verified 11/26/23 08:42 ng codeine AdvReac Unknown Verified 11/26/23 08:42 [facility] Disclaimer: The information contained in this section may have been updated after the patient was seen, as this information can be updated by other users. Medical History Hot flashes Abscess of vulva Retinal detachment Ileus, unspecified History of back pain History of back pain Surgical History History of lumpectomy History of hip replacement History of right shoulder replacement History of surgery on left wrist History of foot surgery History of cataract surgery History of colectomy History of cholecystectomy History of appendectomy History of hysterectomy History of lumbar surgery Hx of cervical spine surgery Family History Mother Cancer Diabetes Sister Diabetes Social History Smoking Status: Never smoker second hand exposure: No alcohol intake: never substance use type: denies use current occupational status: retired Travel in the last 8 weeks: None household members: spouse housing: house education level: high school current occupation: retired from [employer] current occupational exposures/hazards: No caffeine: Yes ROS Obtained: Yes All systems reviewed & no additional complaints except as documented Constitutional Constitutional: Denies chills and Denies fever(s) Eyes Eyes: Denies eye discharge ENT Ears, Nose, Mouth, and Throat: Denies dizziness, Denies otalgia and Denies sore throat Cardiovascular Cardiovascular: Denies chest pain Respiratory Respiratory: Denies shortness of breath, Denies chest congestion, Denies cough, Denies stridor and Denies wheezing Gastrointestinal Gastrointestingal: Denies nausea or vomiting Musculoskeletal Musculoskeletal: Reports system reviewed and no additional complaints, except as documented and Denies arthralgias Integumentary/Breasts Skin/Breast: Denies rash Neurologic Neurologic: Denies dizziness and Denies paresthesias Allergic/Immunologic Allergic/Immunologic: Denies wheezing Physical Exam General General appearance: alert and in no apparent distress Head Head exam: atraumatic, normocephalic and normal inspection Eye Eye exam: Present normal appearance, PERRL and EOMI ENT ENT exam: Present normal exam, normal oropharynx, mucous membranes moist, TM's normal bilaterally and normal external ear exam Neck Neck exam: Present normal inspection, full ROM and trachea midline; Absent meningismus or lymphadenopathy Chest Chest inspection: Present normal inspection and symmetric chest wall rise; Absent tenderness Respiratory Respiratory exam: Present normal lung sounds bilaterally; Absent respiratory distress Cardiovascular Cardiovascular exam: Present regular rate and normal rhythm; Absent JVD Abdominal Exam Abdominal exam: Present soft and normal bowel sounds; Absent distention, tenderness or guarding Extremities Exam Extremities exam: Present normal inspection, full ROM and normal capillary refill; Absent calf tenderness Back Exam Back exam: Present normal inspection; Absent tenderness Neurological Exam Neurological exam: Present alert and oriented X3 Psychiatric Psychiatric exam: Present normal affect and normal mood Skin Skin exam: Present warm, dry, intact and normal color Lymphatic Lymphatic Findings: no adenopathy Medical Decision Making Medical Records Medical records reviewed: No I reviewed the patient's medical records. Romeo Inquiry Pt receiving controlled substance: No
[2024-02-06 11:35] VITALS: BP 130/85; PULSE 67; RESP 18; TEMP 36.9; O2SAT 95; BMI 31.6
[2024-02-06 12:11] VITALS: BP 130/85; PULSE 67; RESP 18; TEMP 36.9; O2SAT 95
== END 2024-02-06 12:05 | disposition home or self-care (01) ==
PROVIDERS: Emergency Provider Nurse Practitioner Family; PCP Internal Medicine Adolescent Medicine
DX: J20.9 Acute bronchitis, unspecified (principal); T78.40XA Allergy, unspecified, initial encounter
CPT/HCPCS: 99212; 99214; G0463

== ENCOUNTER 2024-02-08 00:16 | Emergency (ER) | payer MEDICARE, BC, OTHER, SELFPAY ==
[2024-02-08 00:17] VITALS: BP 147/90; PULSE 84; RESP 20; TEMP 37.1; O2SAT 97; BMI 31.3
--- NOTE | 2024-02-08 00:25 | XR_ITS ---
PROCEDURE INFORMATION: Exam: XR Chest Exam date and time: 02/08/2024 12:29 AM Age: 68 years old Clinical indication: Pain; Cough; Chest pressure; Additional info: Chest pain cough TECHNIQUE: Imaging protocol: Radiologic exam of the chest. Views: 2 views. COMPARISON: CR XR CHEST PORTABLE 03/29/2023 9:15 AM FINDINGS: Tubes, catheters and devices: Right shoulder prosthesis, thoracic spine neurostimulator and cervical spine orthopedic hardware remain in place. Lungs: Mild diffuse pulmonary vascular prominence. No maria teresa pulmonary consolidation. Lung volumes appear normal. Pleural spaces: Unremarkable. No pleural effusion. No pneumothorax. Heart/Mediastinum: Unremarkable. No cardiomegaly. Bones/joints: Moderate thoracic scoliosis. No acute fracture evident. IMPRESSION: Mild pulmonary vascular congestion.
--- NOTE | 2024-02-08 00:30 | ECG_ITS ---
APPROVED REPORT Exam: Resting ECG HR:69 bpm ECG Measurements Heart Rate 69 AXES SD 201 P 127 QRSd 140 QRS 18 QT 410 T 36 QTc 429 Conclusion nondiagnostic ECG Electronically signed by : COLTON CABALLERO, 02/08/2024 14:37:24
[2024-02-08 00:36] LABS: Basophils % 0.4 % (0.1-2.0); Eosinophils % 0.1 % (0.1-12.0); Hematocrit 38.5 % (37.0-47.0); Hemoglobin 12.7 g/dL (12.2-16.2); Lymphocytes # 0.7 K/mm3 (0.7-4.5); Lymphocytes % 12.4 % (10-50); Mean Corpuscular HGB Conc 32.9 g/dL (31.8-35.4); Mean Corpuscular Hemoglobin 32.9 pg (27.0-31.2); Mean Corpuscular Volume 100.1 fl (81-99); Mean Platelet Volume 8.7 fl (7.4-10.4); Monocytes # 0.3 K/mm3 (0.1-1.0); Monocytes % 4.9 % (1.7-9.3); Neutrophils # 4.7 K/mm3 (1.8-7.8); Neutrophils % 82.2 % (37.0-80.0); Platelet Count 171 K/mm3 (142-424); Red Blood Count 3.84 M/mm3 (4.20-5.40); Red Cell Distribution Width 13.7 % (11.5-17.5); White Blood Count 5.7 K/mm3 (4.8-10.8)
[2024-02-08] MEDS: LACTATED RINGERS 1000ML 500 ML 999 ML IV (00:37)
[2024-02-08 00:43] LABS: Chloride 109 mmol/L (98-107); Potassium 3.9 mmoL/L (3.5-5.1); Sodium 143 mmol/L (136-145)
[2024-02-08 00:45] LABS: Blood Urea Nitrogen 18 mg/dl (7-17); Creatinine Clearance Estimated 68 mL/min (50-200); Estimated Glomerular Filt Rate 49 ml/min (>60); GFR (African American) 59 ML/MIN (>60)
[2024-02-08 00:46] LABS: Alanine Aminotransferase 28 U/L (12-78); Albumin Level 4.3 g/dl (3.5-5.0); Albumin/Globulin Ratio 1.4 (1.1-1.8); Alkaline Phosphatase 67 U/L (38-126); Anion Gap 7.9 mEq/L (5-15); Aspartate Amino Transferase 40 U/L (14-36); Bilirubin,Total 0.3 mg/dl (0.2-1.3); Calcium 9.5 mg/dl (8.4-10.2); Carbon Dioxide 30 mmol/L (22.0-30.0); Globulin 3.1 g/dL (1.3-3.2); Glucose 104 mg/dl (74-100); Total Protein,Serum 7.4 g/dl (6.3-8.2)
[2024-02-08 00:48] LABS: INR 0.93 (0.9-1.1); Prothrombin Time 10.5 seconds (10.1-12.5)
[2024-02-08] MEDS: LIDOCAINE 4% TOPICAL SOLN 1ML 1 ML IH (00:48)
[2024-02-08 01:01] LABS: Troponin I < 0.01 ng/ml (0.00-0.034)
[2024-02-08] MEDS: IPRATROPIUM/ALBUTEROL 3 ML NEB IH (01:03)
[2024-02-08 01:05] VITALS: PULSE 83
--- NOTE | 2024-02-08 01:30 | ECG_ITS ---
APPROVED REPORT Exam: Resting ECG HR:64 bpm ECG Measurements Heart Rate 64 AXES DC 173 P 61 QRSd 137 QRS 33 QT 401 T 36 QTc 410 Conclusion Right bundle branch block Difficult to determine electrophysiology Electronically signed by : COLTON CABALLERO, 02/08/2024 14:38:37
--- NOTE | 2024-02-08 01:34 | [facility].EDCP ---
Discharge Plan Disposition Patient Disposition: Home, Self-Care Condition: Good Prescriptions Prescriptions: New benzocaine-menthol 6-10 mg lozenge 1 rianna mucous membrane Q4H PRN (Reason: mouth irritation) Qty: 18 0RF No Action levothyroxine 88 mcg tablet 88 mcg PO DAILY hydrocortisone 5 mg tablet 5 mg PO BID Patient Comments: TAKE ONE TABLET BY MOUTH TWICE DAILY duloxetine [Cymbalta] 60 mg capsule,delayed release(DR/EC) 60 mg PO BID Patient Comments: TAKE 1 CAPSULE BY MOUTH TWICE DAILY rosuvastatin [Crestor] 20 mg tablet 20 mg PO DAILY Patient Comments: TAKE 1 TABLET BY MOUTH ONCE DAILY FOR 90 DAYS Ubrelvy 100 mg tablet 100 mg PO DAILYP PRN (Reason: MIGRAINES) sodium bicarbonate 650 MG tablet 650 mg PO DAILY eszopiclone [Lunesta] 3 MG tablet 3 mg PO HS albuterol sulfate [Ventolin HFA] 108 HFA aerosol inhaler 2 puffs PO Q4HP PRN (Reason: Shortness Of Breath) Patient Comments: geriatric [id number] 1 EACH tablet 1 each PO DAILY lamotrigine 100 MG tablet 100 mg PO BID memantine [Namenda] 10 MG tablet 10 mg PO BID montelukast 10 MG tablet 10 mg PO PM quetiapine 300 mg tablet 300 mg PO HS Patient Comments: TAKE 1 TABLET BY MOUTH ONCE DAILY AT NIGHT formoterol fumarate 20 mcg/2 mL solution for nebulization 2 ml INHALATION BIDRT PRN (Reason: SHORTNESS OF BREATH) Patient Comments: INHALE 1 VIAL BY NEBULIZER TWICE DAILY donepezil [Aricept] 23 mg tablet 23 mg PO DAILY Patient Comments: TAKE 1 TABLET BY MOUTH ONCE DAILY Dupixent Pen 300 mg/2 mL pen injector 300 mg SQ QOW Nurtec ODT 75 mg Tablet,Disintegrating 75 mg PO DAILY doxycycline monohydrate 100 mg tablet 100 mg PO Q12 10 Days Qty: 20 0RF methylprednisolone 4 mg Tablets,Dose Pack 4 mg PO DIRECTED 6 Days Qty: 21 0RF Rx Instructions: Take 1 pack as directed for 6 days guaifenesin [Mucinex] 600 mg tablet extended release 12hr 600 - 1,200 mg PO BIDP PRN (Reason: Congestion) Qty: 30 0RF fluticasone furoate-vilanterol [Breo Ellipta] 100-25 mcg/dose blister with device 1 ea INHALATION DAILY Patient Comments: INHALE 1 PUFF BY MOUTH ONCE DAILY oxycodone 20 mg tablet 15 mg PO QID Referrals Follow up/Referrals: Marc Rodriguez MD [Primary Care Provider] - See instructions Activity Restrictions/Add. Instructions Additional Instructions/Restrictions: You were evaluated in the ER. You are appropriate for discharge at this time. Continue taking home medications as previously prescribed. Use the benzocaine lozenges if needed for cough. Make an appointment with your driver/guide as well as your primary care physician for reevaluation as soon as possible. Return to the ER with new, worsening, or otherwise concerning symptoms. Clinical Impressions Clinical Impression: Chest pain, Cough Discharge ED Provider: Watson Stephenson [facility] Chief Complaint: Chest Pain Stated Complaint: Chest Pain Time Seen by Provider: 02/08/24 00:23 Mode of Arrival: Ambulatory Source of Information: Patient and Spouse Limitations: No Limitations Description of Symptoms (Recalled from ER Triage Doc. by RN): Patient reports she was dx with bronchitis last thursday and was started on antibiotics, patient had a reaction to the medication and came to [facility] yesterday and was given a steriod dose pack. Patient reports chest pain and increased coughing tonight. History of Present Illness HPI narrative: 68-year-old female presents to the ER for concerns of cough, chest pain. Patient states she was diagnosed with bronchitis 2 days ago and was started on azithromycin but she had a reaction to that so she came to the urgent care 1 day later and was started on doxycycline. She was also started on a steroid pack. Patient reports left-sided neck pain and chest pain that started after a coughing spell. She states she came to the ER to make sure it was nothing more serious. Patient has not had fever, she did not have chest x-ray to diagnose her bronchitis. She states she is tolerating the doxycycline well. She has a chronic, nonproductive cough. Patient reports a history of asthma on Dupixent. She states she has been trying her nebulizer at home without significant improvement of symptoms. Related Data Home Medications Medication Instructions Recorded Confirmed eszopiclone 3 mg tablet (Lunesta) 3 mg PO HS Insomnia 10/09/17 02/06/24 sodium bicarbonate 650 mg tablet 650 mg PO DAILY Supplement 10/09/17 02/06/24 albuterol sulfate 90 mcg/actuation 2 puffs PO Q4HP PRN Shortness Of 10/19/17 02/06/24 aerosol inhaler (Ventolin HFA) Breath geriatric [id number] 1 each PO DAILY Diet supplement 10/14/19 11/26/23 lamotrigine 100 mg tablet 100 mg PO BID . 10/14/19 02/06/24 memantine 10 mg tablet (Namenda) 10 mg PO BID MEMORY 10/14/19 02/06/24 montelukast 10 mg tablet 10 mg PO PM Breathing Problems 10/14/19 02/06/24 duloxetine 60 mg capsule,delayed 60 mg PO BID MOOD 09/25/22 02/06/24 release (Cymbalta) hydrocortisone 5 mg tablet 5 mg PO BID Breathing Problems 09/25/22 02/06/24 levothyroxine 88 mcg tablet 88 mcg PO DAILY THYROID 09/25/22 02/06/24 rosuvastatin 20 mg tablet (Crestor) 20 mg PO DAILY Cholesterol 09/25/22 02/06/24 ubrogepant 100 mg tablet (Ubrelvy) 100 mg PO DAILYP PRN MIGRAINES 09/25/22 02/06/24 donepezil 23 mg tablet (Aricept) 23 mg PO DAILY MEMORY 03/29/23 02/06/24 dupilumab 300 mg/2 mL subcutaneous 300 mg SQ QOW Asthma 03/29/23 02/06/24 pen injector (Dupixent) formoterol fumarate 20 mcg/2 mL 2 ml inhalation BIDRT PRN 03/29/23 11/26/23 solution for nebulization SHORTNESS OF BREATH quetiapine 300 mg tablet 300 mg PO HS Insomnia 03/29/23 02/06/24 rimegepant 75 mg disintegrating 75 mg PO DAILY . 04/21/23 02/06/24 tablet (Nurtec ODT) fluticasone furoate 100 1 ea inhalation DAILY 02/06/24 02/06/24 mcg-vilanterol 25 mcg/dose inhalation powder (Breo Ellipta) oxycodone 20 mg tablet 15 mg PO QID Pain 02/06/24 02/06/24 Previous Rx's Medication Instructions Recorded doxycycline monohydrate 100 mg 100 mg PO Q12 10 days #20 tabs 02/06/24 tablet guaifenesin 600 mg tablet, 600 - 1,200 mg (1 - 2 x 600 mg) PO 02/06/24 extended release 12 hr (Mucinex) BIDP PRN Congestion #30 tabs methylprednisolone 4 mg tablets in 4 mg PO DIRECTED 6 days #21 tabs 02/06/24 a dose pack benzocaine 6 mg-menthol 10 mg 1 rianna mucous membrane Q4H PRN 02/08/24 lozenges mouth irritation #18 ea Allergies Allergy/AdvReac Type Severity Reaction Status Date / Time cephalexin Allergy Intermediate BLISTERS Verified 11/26/23 08:42 IN MOUTH AND THROAT clindamycin Allergy Intermediate Blister Verified 11/26/23 08:42 erythromycin base Allergy Intermediate BLISTERS Verified 11/26/23 08:42 IN MOUTH AND THROAT meropenem Allergy Unknown Verified 11/26/23 08:42 azithromycin Allergy Rash Verified 02/06/24 11:54 levofloxacin [From Levaquin] Allergy Verified 11/26/23 08:42 nirmatrelvir [From Paxlovid] Allergy Verified 11/26/23 08:42 ritonavir [From Paxlovid] Allergy Verified 11/26/23 08:42 pregabalin [From Lyrica] AdvReac Mild Hallucinati Verified 11/26/23 08:42 ng codeine AdvReac Unknown Verified 11/26/23 08:42 PFSH PFSH Disclaimer: The information contained in this section may have been updated after the patient was seen, as this information can be updated by other users. Medical History Hot flashes Abscess of vulva Retinal detachment Ileus, unspecified History of back pain History of back pain Surgical History History of lumpectomy History of hip replacement History of right shoulder replacement History of surgery on left wrist History of foot surgery History of cataract surgery History of colectomy History of cholecystectomy History of appendectomy History of hysterectomy History of lumbar surgery Hx of cervical spine surgery Family History Mother Cancer Diabetes Sister Diabetes Social History Smoking Status: Never smoker second hand exposure: No alcohol intake: never substance use type: denies use current occupational status: retired Travel in the last 8 weeks: None household members: spouse housing: house education level: high school current occupation: retired from [employer] current occupational exposures/hazards: No caffeine: Yes ROS Obtained: Yes All systems reviewed & no additional complaints except as documented Constitutional Constitutional: Denies chills, Denies fever(s), Denies headache(s) and Denies weakness Eyes Eyes: Denies change in vision ENT Ears, Nose, Mouth, and Throat: Denies dizziness, Denies headache(s), Denies nasal congestion and Denies sore throat Cardiovascular Cardiovascular: Reports chest pain, Denies dyspnea and Denies leg edema Respiratory Respiratory: Reports cough and Denies dyspnea Gastrointestinal Gastrointestingal: Denies constipation, diarrhea, nausea or vomiting Genitourinary Female Genitourinary: Denies dysuria Musculoskeletal Musculoskeletal: Denies arthralgias, Denies myalgias, Denies numbness and Denies tingling Integumentary/Breasts Skin/Breast: Denies change in pigmentation Neurologic Neurologic: Denies dizziness, Denies headache(s), Denies numbness, Denies tingling and Denies weakness Physical Exam General General appearance: alert and in no apparent distress Head Head exam: atraumatic and normocephalic Eye Eye exam: Present PERRL and EOMI ENT ENT exam: Present mucous membranes moist Neck Neck exam: Present normal inspection, full ROM and tenderness (Mild left-sided neck tenderness in the muscles, exacerbated by coughing) Chest Chest inspection: Present symmetric chest wall rise; Absent tenderness Respiratory Respiratory exam: Present normal lung sounds bilaterally and other (Persistent cough but no rhonchi or rales); Absent respiratory distress, wheezes or stridor Cardiovascular Cardiovascular exam: Present regular rate and normal rhythm Abdominal Exam Abdominal exam: Present soft; Absent distention, tenderness, guarding or rebound Extremities Exam Extremities exam: Present full ROM Neurological Exam Neurological exam: Present alert and oriented X3; Absent motor sensory deficit Psychiatric Psychiatric exam: Present normal affect and normal mood Skin Skin exam: Present warm and dry HEART Score HEART Score HEART Score assessment performed?: Yes History (anamnesis): Slightly suspicious ECG: Non-specific disturbance Age: >65 years Risk factors: 1-2 risk factors Troponin: </= normal limit HEART Score: 4 Critical Care Critical Care Time Critical Care Time: No Medical Decision Making Romeo Inquiry Pt receiving controlled substance: No Vital Signs Vital Signs: 02/08/24 00:17 02/08/24 01:05 Temperature 98.8 F Temperature Source Oral Pulse Rate 83 Pulse Rate [Right Radial] 84 Respiratory Rate 20 Blood Pressure [Right Arm] 147/90 H Blood Pressure Mean [Right Arm] 109 Blood Pressure Source [Right Arm] Automatic Cuff Blood Pressure Position [Right Arm] Supine 02 Sat by Pulse Oximetry 97 Oxygen Delivery Method Room Air Lab Data Labs: Lab Results 02/08/24 00:29: WBC 5.7, RBC 3.84 L, Hgb 12.7, Hct 38.5, MCV 100.1 H, MCH 32.9 H, MCHC 32.9, RDW 13.7, Plt Count 171, MPV 8.7, Neut % (Auto) 82.2 H, Lymph % (Auto) 12.4, Sterling % (Auto) 4.9, Eos % (Auto) 0.1, Baso % (Auto) 0.4, Neut # (Auto) 4.7, Lymph # (Auto) 0.7, Sterling # (Auto) 0.3, Eos # (Auto) 0.0, Baso # (Auto) 0.0, PT 10.5, INR 0.93, Sodium 143, Potassium 3.9, Chloride 109 H, Carbon Dioxide 30, Anion Gap 7.9, BUN 18 H, Creatinine 1.10 H, Estimated Creat Clear 68, Estimated GFR 49 L, Est GFR ( Amer) 59, Glucose 104 H, Calcium 9.5, Total Bilirubin 0.3, AST 40 H, ALT 28, Alkaline Phosphatase 67, Troponin I < 0.01, Total Protein 7.4, Albumin 4.3, Globulin 3.1, Albumin/Globulin Ratio 1.4 02/08/24 00:29 02/08/24 00:29 Response Orders (Tests/Meds): ED MEDICATIONS Generic Name Dose Route Start Last Admin Trade Name Freq PRN Reason Stop Dose Admin Benzocaine/Menthol 1 each 02/08/24 01:41 Cepacol Throat Lozenges 16 Rianna/Box MM 03/09/24 01:40 NEEDED PRN Cough Discontinued Medications Generic Name Dose Route Start Last Admin Trade Name Freq PRN Reason Stop Dose Admin Albuterol/Ipratropium 3 ml 02/08/24 00:36 02/08/24 01:03 Ipratropium/Albuterol 3 Ml Neb IH 02/08/24 00:37 3 ml ONCE ONE Administration Lactated Ringer's 500 mls @ 999 mls/hr 02/08/24 00:24 02/08/24 00:37 Lactated Ringer's 1000 Ml Bag IV 02/08/24 00:54 999 mls/hr .Q31M ONE Administration Lidocaine HCl 1 ml 02/08/24 00:36 02/08/24 00:48 Lidocaine 4% Topical Soln 1ml IH 02/08/24 00:37 1 ml ONCE ONE Administration ORDERS Category Date Time Status CXR 2 view (NOT portable) [XR chest 2V] Stat Exams 02/08/24 00:25 Completed CBC w/Auto Diff [Complete Blood Count Auto Diff] Stat Lab 02/08/24 00:29 Completed CMP [Comprehensive Metabolic Panel] Stat Lab 02/08/24 00:29 Completed PT INR [Prothrombin Time INR] Stat Lab 02/08/24 00:29 Completed Trop I [Troponin I] Stat Lab 02/08/24 00:29 Completed Troponin I Q3H Lab 02/08/24 02:42 Received Troponin I Q3H Lab 02/08/24 06:30 Ordered ECG Request Stat Y 02/08/24 01:42 Ordered MDM Narrative Medical Decision Narrative: In summary, this 68-year-old female presents to the emergency department today with cough, chest pain, left-sided neck pain exacerbated by coughing. On initial evaluation patient is hemodynamically stable, afebrile, cardiopulmonary exam overall is reassuring though patient has persistent dry cough, no findings of trauma or injury to the neck, mild tenderness on the left side of the neck and the muscles, this is exacerbated by coughing. Differential diagnosis includes but is not limited to muscle spasm, pneumonia, postnasal drip, bronchitis, pulled muscle, I will did consider ACS though I have lower suspicion for this given description and onset of symptoms. Based on these concerns, I ordered cardiac workup, chest x-ray, basic labs. ECG personally interpreted demonstrates sinus rhythm, rate 69, QTc normal, normal axis, there is significant baseline artifact secondary to patient's pain stimulator, no obvious STEMI, right bundle branch block present. Patient received DuoNeb, lidocaine neb for treatment. Labs personally reviewed demonstrate no leukocytosis, WBC normal at 5.7, no anemia, PT/INR normal, CMP with trace hyperchloremia, BUN 18, creatinine 1.1, similar to prior, initial troponin undetectably low at less than 0.01, given onset of patient's symptoms serial troponins are necessary to rule out evolving NV. XR personally interpreted demonstrates no acute intrathoracic abnormality, no lobar infiltrate, see radiology read for final interpretation. Patient was placed in ED observation at 0100 for serial troponins to rule out evolving NV and preclude unnecessary admission. She remained on the residential monitor and received additional management for her dry cough while in the ER as well. Patient received benzocaine spray in the back of the throat which significantly improved her cough. Benzocaine lozenges have been prescribed. Repeat ECG demonstrates normal sinus rhythm, rate 64, no dynamic changes from initial EKG, QTc normal, right bundle branch block present, no STEMI. Repeat troponin undetectably low at less than 0.01. Neck pain has also improved as her coughing has decreased. Patient is appropriate for discharge at this time. Patient was given instructions on symptomatic management, follow up instructions, and return precautions for the emergency department. Patient indicated understanding and was discharged in stable condition. Total time in ED observation: 2 hours 10 minutes
[2024-02-08] MEDS: BENZOCAINE 20% 57GM SPRAY 57 GM MM (02:00)
[2024-02-08 03:08] LABS: Troponin I < 0.01 ng/ml (0.00-0.034)
[2024-02-08 03:11] VITALS: BP 115/86; PULSE 84; RESP 18; TEMP 37.1; O2SAT 97
== END 2024-02-08 03:15 | disposition home or self-care (01) ==
PROVIDERS: Emergency Provider Emergency Medicine; PCP Internal Medicine Adolescent Medicine
DX: R07.89 Other chest pain (principal); R05.1 Acute cough; I45.10 Unspecified right bundle-branch block; J45.909 Unspecified asthma, uncomplicated
CPT/HCPCS: 71046; 80053; 84484; 85025; 85610; 93005; 99284; J7120; J7620

== ENCOUNTER 2024-03-03 09:55 | Outpatient (CLI) | payer MEDICARE, BC, SELFPAY ==
[2024-03-03 10:07] LABS: Microscopic, Urine URINE MICROSCOPIC (MICROSCOPIC)
[2024-03-03 10:33] LABS: Appearance,Urine CLEAR (Clear); Bilirubin,Urine Negative (Negative); Blood, Urine Negative (Negative); Color,Urine YELLOW (Yellow); Glucose,Urine (UA) Negative (Negative); Ketones,Urine Negative (Negative); Leukocyte Esterase,Urine Negative (Negative); Nitrate,Urine Negative (Negative); PH,Urine 5.5 (5.0-8.5); Protein,Urine Negative (Negative); Specific Gravity, Urine >= 1.030 (1.005-1.030); Urobilinogen,Urine 0.2 EU/dl (0.2)
[2024-03-03 12:21] LABS: Bacteria,Urine Trace /lpf; WBC,Urine Occasional #/hpf (0-3)
== END 2024-03-03 23:59 | disposition home or self-care (01) ==
LOC: LAB 10:01
PROVIDERS: PCP Internal Medicine Adolescent Medicine; Visit Provider Physician Assistant Medical
DX: Z01.818 Encounter for other preprocedural examination (principal); M54.42 Lumbago with sciatica, left side; M47.14 Other spondylosis with myelopathy, thoracic region; M51.36 Other intervertebral disc degeneration, lumbar region; G89.29 Other chronic pain; Z98.1 Arthrodesis status
CPT/HCPCS: 81001

== ENCOUNTER 2024-07-21 21:45 | Emergency (ER) | payer MEDICARE, BC, SELFPAY ==
--- NOTE | 2024-07-21 21:18 | ECG_ITS ---
APPROVED REPORT Exam: Resting ECG HR:65 bpm ECG Measurements Heart Rate 65 AXES NM 177 P 52 QRSd 145 QRS 24 QT 426 T 50 QTc 438 Conclusion SINUS RHYTHM WITH OCCASIONAL SUPRAVENTRICULAR PREMATURE COMPLEXES RIGHT BUNDLE BRANCH BLOCK [120+ ms QRS DURATION, UPRIGHT V1, 40+ ms S IN I/aVL/V4/V5/V6] ABNORMAL ECG UNCONFIRMED REPORT Electronically signed by : DAIANA MANNING, 07/22/2024 06:48:52
[2024-07-21 21:34] VITALS: BP 160/91; PULSE 71; RESP 18; TEMP 36.8; O2SAT 96; BMI 32.8
[2024-07-21 22:06] LABS: White Blood Count 5.9 K/mm3 (4.8-10.8)
[2024-07-21 22:07] LABS: Basophils % 0.7 % (0.1-2.0); Eosinophils % 1.3 % (0.1-12.0); Hematocrit 36.2 % (37.0-47.0); Hemoglobin 11.6 g/dL (12.2-16.2); Lymphocytes % 24.8 % (10-50); Mean Corpuscular Hemoglobin 29.8 pg (27.0-31.2); Mean Corpuscular Volume 93.1 fl (81-99); Mean Platelet Volume 11.1 fl (7.4-10.4); Monocytes % 7.3 % (1.7-9.3); Neutrophils % 65.6 % (37.0-80.0); Platelet Count 115 K/mm3 (142-424); Red Blood Count 3.89 M/mm3 (4.20-5.40); Red Cell Distribution Width 14.5 % (11.5-17.5)
[2024-07-21 22:08] LABS: Eosinophils # 0.1 K/mm3 (0.0-0.4); INR 0.94 (0.9-1.1); Lymphocytes # 1.5 K/mm3 (0.7-4.5); Monocytes # 0.4 K/mm3 (0.1-1.0); Neutrophils # 3.9 K/mm3 (1.8-7.8); Prothrombin Time 10.6 seconds (10.1-12.5)
[2024-07-21 22:10] LABS: Lipase 176 U/L (23-300)
--- NOTE | 2024-07-21 22:13 | ED_ITS ---
Discharge Plan Disposition Patient Disposition: Home, Self-Care Prescriptions Prescriptions: No Action levothyroxine 88 mcg tablet 88 mcg PO DAILY hydrocortisone 5 mg tablet 5 mg PO BID Patient Comments: TAKE ONE TABLET BY MOUTH TWICE DAILY duloxetine [Cymbalta] 60 mg capsule,delayed release(DR/EC) 60 mg PO BID Patient Comments: TAKE 1 CAPSULE BY MOUTH TWICE DAILY rosuvastatin [Crestor] 20 mg tablet 20 mg PO DAILY Patient Comments: TAKE 1 TABLET BY MOUTH ONCE DAILY FOR 90 DAYS Ubrelvy 100 mg tablet 100 mg PO DAILYP PRN (Reason: MIGRAINES) sodium bicarbonate 650 MG tablet 650 mg PO DAILY eszopiclone [Lunesta] 3 MG tablet 3 mg PO HS albuterol sulfate [Ventolin HFA] 108 HFA aerosol inhaler 2 puffs PO Q4HP PRN (Reason: Shortness Of Breath) Patient Comments: geriatric [id number] 1 EACH tablet 1 each PO DAILY lamotrigine 100 MG tablet 100 mg PO BID memantine [Namenda] 10 MG tablet 10 mg PO BID montelukast 10 MG tablet 10 mg PO PM quetiapine 300 mg tablet 300 mg PO HS Patient Comments: TAKE 1 TABLET BY MOUTH ONCE DAILY AT NIGHT formoterol fumarate 20 mcg/2 mL solution for nebulization 2 ml INHALATION BIDRT PRN (Reason: SHORTNESS OF BREATH) Patient Comments: INHALE 1 VIAL BY NEBULIZER TWICE DAILY donepezil [Aricept] 23 mg tablet 23 mg PO DAILY Patient Comments: TAKE 1 TABLET BY MOUTH ONCE DAILY Dupixent Pen 300 mg/2 mL pen injector 300 mg SQ QOW Nurtec ODT 75 mg Tablet,Disintegrating 75 mg PO DAILY doxycycline monohydrate 100 mg tablet 100 mg PO Q12 10 Days Qty: 20 0RF methylprednisolone 4 mg Tablets,Dose Pack 4 mg PO DIRECTED 6 Days Qty: 21 0RF Rx Instructions: Take 1 pack as directed for 6 days guaifenesin [Mucinex] 600 mg tablet extended release 12hr 600 - 1,200 mg PO BIDP PRN (Reason: Congestion) Qty: 30 0RF fluticasone furoate-vilanterol [Breo Ellipta] 100-25 mcg/dose blister with device 1 ea INHALATION DAILY Patient Comments: INHALE 1 PUFF BY MOUTH ONCE DAILY oxycodone 20 mg tablet 15 mg PO QID benzocaine-menthol 6-10 mg lozenge 1 sona mucous membrane Q4H PRN (Reason: mouth irritation) Qty: 18 0RF Referrals Follow up/Referrals: Marc Rodriguez MD [Primary Care Provider] - See instructions Activity Restrictions/Add. Instructions Additional Instructions/Restrictions: Your blood work was normal including kidney function, cardiac enzymes etc. Your CT scan showed a mild compression deformity of T11. This may be old. Please follow-up with your providers. Please follow-up with your primary care provider. Please return to the emergency department if you develop any new or worsening symptoms or become concerned for your health. Clinical Impressions Clinical Impression: Jaw pain, Compression deformity of vertebra, Hypertension Headache Qualifiers: Headache chronicity pattern: chronic headache Print Language Print Language: Maltese Discharge ED Provider: Barry Adams General Adult HPI <Fam Gil MD - Last Filed: 07/22/24 01:13> General Chief complaint: Chest Pain Stated complaint: chest tightness Time Seen by Provider: 07/21/24 21:50 Mode of Arrival: EMS Source of Information: Patient and EMS Limitations: No Limitations Description of Symptoms (Recalled from ER Triage Doc. by RN): Pt c/o chest pressure & ARCHIBALD starting today with htn. 324 ASA given, 1 nitro spray. History of Present Illness HPI narrative: Patient presents today for evaluation of headache gradual in onset starting approximately 4 days ago, constant, worsening, no associated blurry vision or preceding traumatic injury. Patient reported chest pain to EMS and was given aspirin and nitroglycerin. Denies any focal chest pain at this time. No previous therapies. Patient has not had similar symptoms before. Patient was recently admitted to outside facility and outside acute rehab facility following lumbar spinal surgery. She reports chronic pain in her left lower extremity with left lower extremity motor weakness that is chronic in nature however reportedly worsened. She describes a pressure sensation in that leg. Please note that above description of symptoms, in this electronic medical record under categorization of recalled from ER triage doctor by RN are reflective of an initial nursing assessment, however, is not reflective of my full history and physical exam that was personally taken and clarified. Consequentially, this preceding description of symptoms, which may include the patient's categorized chief complaint in the EMR, do not reflect my personal clinical impression, and the ultimate description of history of present illness and patient stated complaints should be deferred to this section of the note. Unless stated otherwise or congruent with this section of the note, additional signs, symptoms, or incongruence should be interpreted as inaccurate with my clinical impression. Related Data Home Medications ?Medication ?Instructions ?Recorded ?Confirmed eszopiclone 3 mg tablet (Lunesta) 3 mg PO HS Insomnia 10/09/17 02/06/24 sodium bicarbonate 650 mg tablet 650 mg PO DAILY Supplement 10/09/17 02/06/24 albuterol sulfate 90 mcg/actuation 2 puffs PO Q4HP PRN Shortness Of 10/19/17 02/06/24 aerosol inhaler (Ventolin HFA) Breath geriatric [id number] 1 each PO DAILY Diet supplement 10/14/19 11/26/23 lamotrigine 100 mg tablet 100 mg PO BID . 10/14/19 02/06/24 memantine 10 mg tablet (Namenda) 10 mg PO BID MEMORY 10/14/19 02/06/24 montelukast 10 mg tablet 10 mg PO PM Breathing Problems 10/14/19 02/06/24 duloxetine 60 mg capsule,delayed 60 mg PO BID MOOD 09/25/22 02/06/24 release (Cymbalta) hydrocortisone 5 mg tablet 5 mg PO BID Breathing Problems 09/25/22 02/06/24 levothyroxine 88 mcg tablet 88 mcg PO DAILY THYROID 09/25/22 02/06/24 rosuvastatin 20 mg tablet (Crestor) 20 mg PO DAILY Cholesterol 09/25/22 02/06/24 ubrogepant 100 mg tablet (Ubrelvy) 100 mg PO DAILYP PRN MIGRAINES 09/25/22 02/06/24 donepezil 23 mg tablet (Aricept) 23 mg PO DAILY MEMORY 03/29/23 02/06/24 dupilumab 300 mg/2 mL subcutaneous 300 mg SQ QOW Asthma 03/29/23 02/06/24 pen injector (Dupixent) formoterol fumarate 20 mcg/2 mL 2 ml inhalation BIDRT PRN 03/29/23 11/26/23 solution for nebulization SHORTNESS OF BREATH quetiapine 300 mg tablet 300 mg PO HS Insomnia 03/29/23 02/06/24 rimegepant 75 mg disintegrating 75 mg PO DAILY . 04/21/23 02/06/24 tablet (Nurtec ODT) fluticasone furoate 100 1 ea inhalation DAILY 02/06/24 02/06/24 mcg-vilanterol 25 mcg/dose inhalation powder (Breo Ellipta) oxycodone 20 mg tablet 15 mg PO QID Pain 02/06/24 02/06/24 Previous Rx's ?Medication ?Instructions ?Recorded doxycycline monohydrate 100 mg 100 mg PO Q12 10 days #20 tabs 02/06/24 tablet guaifenesin 600 mg tablet, 600 - 1,200 mg (1 - 2 x 600 mg) PO 02/06/24 extended release 12 hr (Mucinex) BIDP PRN Congestion #30 tabs methylprednisolone 4 mg tablets in 4 mg PO DIRECTED 6 days #21 tabs 02/06/24 a dose pack benzocaine 6 mg-menthol 10 mg 1 sona mucous membrane Q4H PRN 02/08/24 lozenges mouth irritation #18 ea Allergies Allergy/AdvReac Type Severity Reaction Status Date / Time cephalexin Allergy Intermediate BLISTERS Verified 11/26/23 08:42 IN MOUTH AND THROAT clindamycin Allergy Intermediate Blister Verified 11/26/23 08:42 erythromycin base Allergy Intermediate BLISTERS Verified 11/26/23 08:42 IN MOUTH AND THROAT meropenem Allergy Unknown Verified 11/26/23 08:42 azithromycin Allergy Rash Verified 02/06/24 11:54 levofloxacin (From Levaquin) Allergy Verified 11/26/23 08:42 nirmatrelvir (From Paxlovid) Allergy Verified 11/26/23 08:42 ritonavir (From Paxlovid) Allergy Verified 11/26/23 08:42 pregabalin (From Lyrica) AdvReac Mild Hallucinati Verified 11/26/23 08:42 ng codeine AdvReac Unknown Verified 11/26/23 08:42 [facility] <Fam Gil MD - Last Filed: 07/22/24 01:13> [facility] Disclaimer: The information contained in this section may have been updated after the patient was seen, as this information can be updated by other users. Medical History Hot flashes Abscess of vulva Retinal detachment Ileus, unspecified History of back pain History of back pain Surgical History History of lumpectomy History of hip replacement History of right shoulder replacement History of surgery on left wrist History of foot surgery History of cataract surgery History of colectomy History of cholecystectomy History of appendectomy History of hysterectomy History of lumbar surgery Hx of cervical spine surgery Family History Mother Cancer Diabetes Sister Diabetes Social History Smoking Status: Never smoker second hand exposure: No alcohol intake: never substance use type: denies use current occupational status: retired Travel in the last 8 weeks: None household members: spouse housing: house education level: high school current occupation: retired from [employer] current occupational exposures/hazards: No caffeine: Yes Have you lived/traveled outside [place] in past 30 days?: No Contact w/someone who lives/traveled outside US past 30 days?: No Exposure to someone with infectious disease in past 14 days?: No Do you have a fever (greater than 100.4 F or 38 C)?: No Have you tested positive for COVID-19: No Exposed to someone with COVID-19 in past 14 days?: No Do you have a sore throat?: No Do you have a cough?: No Do you have any weakness?: No Do you have any diarrhea?: No Are you experiencing any unusual bleeding?: No Do you have any muscle aches/pain?: No Do you have any abdominal pain?: No Are you experiencing loss of taste or smell?: No Other Medical History Have you received the Flu Vaccine for this season: Yes Have you received the Pneumonia Vaccine: Yes <Fam Gil MD - Last Filed: 07/22/24 01:13> ROS Obtained: Yes other As per HPI Physical Exam <Fam Gil MD - Last Filed: 07/22/24 01:13> General General appearance: alert and in no apparent distress Head Head exam: atraumatic and normocephalic Eye Eye exam: Present normal appearance Neck Neck exam: Present normal inspection Chest Chest inspection: Present normal inspection and symmetric chest wall rise Respiratory Respiratory exam: Present normal lung sounds bilaterally; Absent respiratory distress Cardiovascular Cardiovascular exam: Present regular rate and normal rhythm Abdominal Exam Abdominal exam: Present soft Neurological Exam Neurological exam: Present alert and oriented X3 Psychiatric Psychiatric exam: Present normal affect and normal mood Skin Skin exam: Present warm and dry Other Other exam information: Motor weakness in left lower extremity, exam limited secondary to pain. Reportedly chronic in nature Medical Decision Making <Fam Gil MD - Last Filed: 07/22/24 01:13> Medical Records Medical records reviewed: Yes I reviewed the patient's medical records. Screening: Per USPSTF and CDC recommendations, given the prevalence of disease in our region, it is our hospital?s policy to screen for HIV and viral Hepatitis for all patients aged 18 and over and those with ongoing risk factors. Romeo Inquiry Pt receiving controlled substance: No Vital Signs: 07/21/24 21:34 07/22/24 01:11 07/22/24 03:38 Temperature 98.3 F 98 F Temperature Source Oral Pulse Rate 64 78 Pulse Rate [Apical] 71 Respiratory Rate 18 20 16 Blood Pressure 170/85 H 169/81 H Blood Pressure [Right Arm] 160/91 H Blood Pressure Mean [Right Arm] 114 02 Sat by Pulse Oximetry 96 94 L Oxygen Delivery Method Room Air Room Air Room Air Lab Data Lab Results 07/21/24 20:49: WBC 5.9, RBC 3.89 L, Hgb 11.6 L, Hct 36.2 L, MCV 93.1, MCH 29.8, MCHC 32.0, RDW 14.5, Plt Count 115 L, MPV 11.1 H, Neut % (Auto) 65.6, Lymph % (Auto) 24.8, [place] % (Auto) 7.3, Eos % (Auto) 1.3, Baso % (Auto) 0.7, Neut # (Auto) 3.9, Lymph # (Auto) 1.5, [place] # (Auto) 0.4, Eos # (Auto) 0.1, Baso # (Auto) 0.0, PT 10.6, INR 0.94, Sodium 137, Potassium 4.3, Chloride 103, Carbon Dioxide 34 H, Anion Gap 4.3 L, BUN 11, Creatinine 0.80, Estimated Creat Clear 79, Estimated GFR 71, Est GFR ( Amer) 86, Glucose 85, Calcium 9.7, Total Bilirubin 0.6, AST 35, ALT 14, Alkaline Phosphatase 96, Troponin I < 0.01, Total Protein 7.1, Albumin 4.3, Globulin 2.8, Albumin/Globulin Ratio 1.5, Lipase 176 07/21/24 22:21: HIV Ag/Ab Combo Qual Negative 07/22/24 00:49: Troponin I < 0.01 07/21/24 20:49 07/21/24 20:49 Orders (Tests/Meds): ED MEDICATIONS Discontinued Medications Generic Name Dose Route Start Last Admin Trade Name Freq PRN Reason Stop Dose Admin Iopamidol 80 ml 07/21/24 23:24 07/21/24 23:26 Iopamidol-370 (76%);100ml Bottle IV 07/21/24 23:25 80 ml ONCE ONE Administration Ondansetron HCl 4 mg 07/21/24 23:58 07/22/24 00:03 Ondansetron 4mg/2ml Vial IV 07/21/24 23:59 4 mg ONCE ONE Administration Prochlorperazine Edisylate 10 mg 07/22/24 02:53 07/22/24 02:58 Prochlorperazine 10mg/2ml Vial IV 07/22/24 02:54 10 mg ONCE ONE Administration Sodium Chloride 10 ml 07/21/24 23:24 07/21/24 23:26 Sodium Chloride 0.9% 10ml Syr (Rad Only) IV 07/21/24 23:25 10 ml ONCE ONE Administration ORDERS Category Date Time Status CT angio head Stat Cat Scan 07/21/24 22:[address] angio neck Stat Cat Scan 07/21/24 22:[address] cervical spine wo con Stat Cat Scan 07/21/24 22:[address] head/brain wo con Stat Cat Scan 07/21/24 22:[address] lumbar spine wo con Stat Cat Scan 07/21/24 22:[address] thoracic spine wo con Stat Cat Scan 07/21/24 22:25 Completed CBC w/Auto Diff [Complete Blood Count Auto Diff] Stat Lab 07/21/24 20:49 Completed CMP [Comprehensive Metabolic Panel] Stat Lab 07/21/24 20:49 Completed HIV Combo Stat Lab 07/21/24 22:21 Completed Hep C Ab with Reflex to RNA Stat Lab 07/21/24 22:21 Received Lipase Stat Lab 07/21/24 20:49 Completed PT INR [Prothrombin Time INR] Stat Lab 07/21/24 20:49 Completed Troponin I Q3H Lab 07/21/24 20:49 Completed Troponin I Q3H Lab 07/22/24 00:49 Completed Medical Decision Narrative: Patient with history and exam per above presenting for evaluation of headache, acute on chronic left lower extremity pain and weakness Diagnoses considered include stroke, subarachnoid hemorrhage, subdural hematoma, fracture, among others. No clinical evidence of cauda equina syndrome. Patient denies any incontinence of bowel or bladder ED workup and treatment included: ED MEDICATIONS Discontinued Medications Generic Name Dose Route Start Last Admin Trade Name Freq PRN Reason Stop Dose Admin Iopamidol 80 ml 07/21/24 23:24 07/21/24 23:26 Iopamidol-370 (76%);100ml Bottle IV 07/21/24 23:25 80 ml ONCE ONE Administration Ondansetron HCl 4 mg 07/21/24 23:58 07/22/24 00:03 Ondansetron 4mg/2ml Vial IV 07/21/24 23:59 4 mg ONCE ONE Administration Sodium Chloride 10 ml 07/21/24 23:24 07/21/24 23:26 Sodium Chloride 0.9% 10ml Syr (Rad Only) IV 07/21/24 23:25 10 ml ONCE ONE Administration ORDERS Category Date Time Status CT angio head Stat Cat Scan 07/21/24 22:[address] angio neck Stat Cat Scan 07/21/24 22:[address] cervical spine wo con Stat Cat Scan 07/21/24 22:[address] head/brain wo con Stat Cat Scan 07/21/24 22:[address] lumbar spine wo con Stat Cat Scan 07/21/24 22:[address] thoracic spine wo con Stat Cat Scan 07/21/24 22:25 Taken CBC w/Auto Diff [Complete Blood Count Auto Diff] Stat Lab 07/21/24 20:49 Completed CMP [Comprehensive Metabolic Panel] Stat Lab 07/21/24 20:49 Completed HIV Combo Stat Lab 07/21/24 22:21 Completed Hep C Ab with Reflex to RNA Stat Lab 07/21/24 22:21 Received Lipase Stat Lab 07/21/24 20:49 Completed PT INR [Prothrombin Time INR] Stat Lab 07/21/24 20:49 Completed Troponin I Q3H Lab 07/21/24 20:49 Completed Troponin I Q3H Lab 07/22/24 00:49 Received Labs and imaging pending at this time. Care transferred to incoming physician. <Barry Adams MD - Last Filed: 07/22/24 03:46> Vital Signs: 07/21/24 21:34 07/22/24 01:11 07/22/24 03:38 Temperature 98.3 F 98 F Temperature Source Oral Pulse Rate 64 78 Pulse Rate [Apical] 71 Respiratory Rate 18 20 16 Blood Pressure 170/85 H 169/81 H Blood Pressure [Right Arm] 160/91 H Blood Pressure Mean [Right Arm] 114 02 Sat by Pulse Oximetry 96 94 L Oxygen Delivery Method Room Air Room Air Room Air Lab Data Lab Results 07/21/24 20:49: WBC 5.9, RBC 3.89 L, Hgb 11.6 L, Hct 36.2 L, MCV 93.1, MCH 29.8, MCHC 32.0, RDW 14.5, Plt Count 115 L, MPV 11.1 H, Neut % (Auto) 65.6, Lymph % (Auto) 24.8, [place] % (Auto) 7.3, Eos % (Auto) 1.3, Baso % (Auto) 0.7, Neut # (Auto) 3.9, Lymph # (Auto) 1.5, [place] # (Auto) 0.4, Eos # (Auto) 0.1, Baso # (Auto) 0.0, PT 10.6, INR 0.94, Sodium 137, Potassium 4.3, Chloride 103, Carbon Dioxide 34 H, Anion Gap 4.3 L, BUN 11, Creatinine 0.80, Estimated Creat Clear 79, Estimated GFR 71, Est GFR ( Amer) 86, Glucose 85, Calcium 9.7, Total Bilirubin 0.6, AST 35, ALT 14, Alkaline Phosphatase 96, Troponin I < 0.01, Total Protein 7.1, Albumin 4.3, Globulin 2.8, Albumin/Globulin Ratio 1.5, Lipase 176 07/21/24 22:21: HIV Ag/Ab Combo Qual Negative 07/22/24 00:49: Troponin I < 0.01 Orders (Tests/Meds): ED MEDICATIONS Discontinued Medications Generic Name Dose Route Start Last Admin Trade Name Freq PRN Reason Stop Dose Admin Iopamidol 80 ml 07/21/24 23:24 07/21/24 23:26 Iopamidol-370 (76%);100ml Bottle IV 07/21/24 23:25 80 ml ONCE ONE Administration Ondansetron HCl 4 mg 07/21/24 23:58 07/22/24 00:03 Ondansetron 4mg/2ml Vial IV 07/21/24 23:59 4 mg ONCE ONE Administration Prochlorperazine Edisylate 10 mg 07/22/24 02:53 07/22/24 02:58 Prochlorperazine 10mg/2ml Vial IV 07/22/24 02:54 10 mg ONCE ONE Administration Sodium Chloride 10 ml 07/21/24 23:24 07/21/24 23:26 Sodium Chloride 0.9% 10ml Syr (Rad Only) IV 07/21/24 23:25 10 ml ONCE ONE Administration ORDERS Category Date Time Status CT angio head Stat Cat Scan 07/21/24 22:[address] angio neck Stat Cat Scan 07/21/24 22:[address] cervical spine wo con Stat Cat Scan 07/21/24 22:[address] head/brain wo con Stat Cat Scan 07/21/24 22:[address] lumbar spine wo con Stat Cat Scan 07/21/24 22:[address] thoracic spine wo con Stat Cat Scan 07/21/24 22:25 Completed CBC w/Auto Diff [Complete Blood Count Auto Diff] Stat Lab 07/21/24 20:49 Completed CMP [Comprehensive Metabolic Panel] Stat Lab 07/21/24 20:49 Completed HIV Combo Stat Lab 07/21/24 22:21 Completed Hep C Ab with Reflex to RNA Stat Lab 07/21/24 22:21 Received Lipase Stat Lab 07/21/24 20:49 Completed PT INR [Prothrombin Time INR] Stat Lab 07/21/24 20:49 Completed Troponin I Q3H Lab 07/21/24 20:49 Completed Troponin I Q3H Lab 07/22/24 00:49 Completed Medical Decision Narrative: Patient with history and exam per above presenting for evaluation of headache, acute on chronic left lower extremity pain and weakness Diagnoses considered include stroke, subarachnoid hemorrhage, subdural hematoma, fracture, among others. No clinical evidence of cauda equina syndrome. Patient denies any incontinence of bowel or bladder ED workup and treatment included: ED MEDICATIONS Discontinued Medications Generic Name Dose Route Start Last Admin Trade Name Freq PRN Reason Stop Dose Admin Iopamidol 80 ml 07/21/24 23:24 07/21/24 23:26 Iopamidol-370 (76%);100ml Bottle IV 07/21/24 23:25 80 ml ONCE ONE Administration Ondansetron HCl 4 mg 07/21/24 23:58 07/22/24 00:03 Ondansetron 4mg/2ml Vial IV 07/21/24 23:59 4 mg ONCE ONE Administration Sodium Chloride 10 ml 07/21/24 23:24 07/21/24 23:26 Sodium Chloride 0.9% 10ml Syr (Rad Only) IV 07/21/24 23:25 10 ml ONCE ONE Administration ORDERS Category Date Time Status CT angio head Stat Cat Scan 07/21/24 22:[address] angio neck Stat Cat Scan 07/21/24 22:[address] cervical spine wo con Stat Cat Scan 07/21/24 22:[address] head/brain wo con Stat Cat Scan 07/21/24 22:[address] lumbar spine wo con Stat Cat Scan 07/21/24 22:[address] thoracic spine wo con Stat Cat Scan 07/21/24 22:25 Taken CBC w/Auto Diff [Complete Blood Count Auto Diff] Stat Lab 07/21/24 20:49 Completed CMP [Comprehensive Metabolic Panel] Stat Lab 07/21/24 20:49 Completed HIV Combo Stat Lab 07/21/24 22:21 Completed Hep C Ab with Reflex to RNA Stat Lab 07/21/24 22:21 Received Lipase Stat Lab 07/21/24 20:49 Completed PT INR [Prothrombin Time INR] Stat Lab 07/21/24 20:49 Completed Troponin I Q3H Lab 07/21/24 20:49 Completed Troponin I Q3H Lab 07/22/24 00:49 Received Labs and imaging pending at this time. Care transferred to incoming physician. Angie PHIPPS: I assumed care of the patient at the time of handoff from the prior provider. On reassessment patient remained stable. Blood pressure mildly improved, in the 160s systolic. Labs significant for negative troponin x 2, no significant electrolyte derangement, normal renal function. CT imaging of the head and neck show no evidence of intracranial lesion. CT imaging of the spine shows evidence of prior surgeries, spinal stimulator, pain pump. It also shows a mild compression deformity of T11. I had extensive discussion with patient and family regarding her presentation, symptoms, workup. We do not have prior imaging of the thoracic spine in our system. She has had extensive workup including multiple CTs and MRIs given her issues after her surgery. The family reports that since her last imaging, she has had no falls or trauma of any kind. She is not ambulatory at baseline and is bedbound. Patient came in complaining of headache and jaw pain primarily, not complain of new back pain. On exam she has diffuse tenderness of the spine, not significantly tender over the T11 area compared to other areas. She does not have any new signs of cauda equina such as urinary retention, perineal numbness etc. She does have some increased pain in the left upper leg. There is no evidence of canal stenosis as a result of the T11 compression fracture and this should not produce any unilateral symptoms at this level. I offered to the patient and family that we call and speak with Ortho on-call at regarding this imaging and her symptoms, given the possibility of a new compression deformity. however, they report that they would prefer to follow-up with their computer system specialist on their own time. I gave her Compazine for her headache and patient was discharged in stable condition with return precautions and instructions to follow-up. Critical Care <Fam Gil MD - Last Filed: 07/22/24 01:13> Critical Care Time Critical Care Time: No
[2024-07-21 22:23] LABS: Troponin I < 0.01 ng/ml (0.00-0.034)
--- NOTE | 2024-07-21 22:24 | CT_ITS ---
PROCEDURE INFORMATION: Exam: CTA Head With Contrast, Arteriography Exam date and time: 07/21/2024 11:15 PM Age: 68 years old Clinical indication: Pain; Headache; Additional info: ARCHIBALD, rle weakness TECHNIQUE: Imaging protocol: Computed tomographic angiography of the head with contrast. Exam focused on the arteries. 3D rendering (Not supervised by radiologist): MIP and/or 3D reconstructed images were created by the technologist. Radiation optimization: All CT scans at this facility use at least one of these dose optimization techniques: automated exposure control; mA and/or kV adjustment per patient size (includes targeted exams where dose is matched to clinical indication); or iterative reconstruction. Contrast material: [id number]; Contrast volume: 80 ml; Contrast route: INTRAVENOUS (IV); COMPARISON: CT ANGIO HEAD 07/21/2024 11:15 PM FINDINGS: ANTERIOR CIRCULATION: Right internal carotid artery: Intracranial segment is patent with no significant stenosis. No aneurysm. Right middle cerebral artery: No occlusion or significant stenosis. No aneurysm. Right anterior cerebral artery: No occlusion or significant stenosis. No aneurysm. Left internal carotid artery: Intracranial segment is patent with no significant stenosis. No aneurysm. Left middle cerebral artery: No occlusion or significant stenosis. No aneurysm. Left anterior cerebral artery: No occlusion or significant stenosis. No aneurysm. POSTERIOR CIRCULATION: Right vertebral artery: No occlusion or significant stenosis. No aneurysm. Left vertebral artery: No occlusion or significant stenosis. No aneurysm. Basilar artery: No occlusion or significant stenosis. No aneurysm. Right posterior cerebral artery: No occlusion or significant stenosis. No aneurysm. Left posterior cerebral artery: No occlusion or significant stenosis. No aneurysm. Brain: No definite mass, mass effect, or midline shift. Cerebral ventricles: No ventriculomegaly. Bones/joints: Unremarkable. No acute fracture. Soft tissues: Unremarkable. IMPRESSION: No large vessel stenosis or occlusion.
--- NOTE | 2024-07-21 22:24 | CT_ITS ---
PROCEDURE INFORMATION: Exam: CTA Neck With Contrast Exam date and time: 07/21/2024 11:15 PM Age: 68 years old Clinical indication: Pain; Headache; Additional info: ARCHIBALD, rle weakness TECHNIQUE: Imaging protocol: Computed tomographic angiography of the neck with contrast. Exam focused on the cervical segments of the vasculature. 3D rendering (Not supervised by radiologist): MIP and/or 3D reconstructed images were created by the technologist. Radiation optimization: All CT scans at this facility use at least one of these dose optimization techniques: automated exposure control; mA and/or kV adjustment per patient size (includes targeted exams where dose is matched to clinical indication); or iterative reconstruction. Contrast material: [id number]; Contrast volume: 80 ml; Contrast route: INTRAVENOUS (IV); COMPARISON: CT ANGIO NECK 03/29/2023 9:02 AM FINDINGS: Right common carotid artery: Minimal atherosclerosis of the carotid bulb without flow-limiting stenosis. No dissection or occlusion. Right internal carotid artery: No stenosis of the extracranial segment. No dissection or occlusion. Right external carotid artery: Minimal atherosclerosis near the origin without flow-limiting stenosis. Left common carotid artery: Minimal atherosclerosis of the carotid bulb without flow-limiting stenosis. No dissection or occlusion. Left internal carotid artery: No stenosis of the extracranial segment. No dissection or occlusion. Left external carotid artery: No occlusion or stenosis of the origin. Right vertebral artery: Dominant vessel. No stenosis. No dissection or occlusion. Left vertebral artery: No stenosis. No dissection or occlusion. Soft tissues: Normal. No significant soft tissue swelling. Bones/joints: Degenerative changes. No acute fracture. C6-C7 anterior cervical discectomy and fusion. IMPRESSION: No stenosis or occlusion. No dissection. REFERENCES: NASCET CRITERIA. The degree of stenosis in the cervical segment of the internal carotid artery is based on NASCET criteria. Normal is no stenosis. Mild is less than 50% stenosis. Moderate is 50-69% stenosis. Severe is 70% to 99% stenosis. Total occlusion is no detectable patent lumen.
--- NOTE | 2024-07-21 22:24 | CT_ITS ---
PROCEDURE INFORMATION: Exam: CT Cervical Spine Without Contrast Exam date and time: 07/21/2024 11:07 PM Age: 68 years old Clinical indication: Neck pain; Additional info: ARCHIBALD, rle weakness TECHNIQUE: Imaging protocol: Computed tomography of the cervical spine without contrast. Radiation optimization: All CT scans at this facility use at least one of these dose optimization techniques: automated exposure control; mA and/or kV adjustment per patient size (includes targeted exams where dose is matched to clinical indication); or iterative reconstruction. COMPARISON: CT CERVICAL SPINE WO CON 07/06/2023 11:17 AM FINDINGS: Bones: Postsurgical changes of C6-C7 anterior cervical discectomy and fusion. Grossly intact surgical hardware. Cervical vertebrae normal in height. No acute fracture. Right lateral tilt. Maintained craniocervical junction. Multilevel degenerative changes. Varying degrees of neural foraminal narrowing. No severe spinal canal stenosis. Lungs: No acute findings. Soft tissues: Unremarkable. IMPRESSION: No acute osseous findings.
[2024-07-21 22:25] LABS: Albumin Level 4.3 g/dl (3.5-5.0); Chloride 103 mmol/L (98-107); Potassium 4.3 mmoL/L (3.5-5.1); Sodium 137 mmol/L (136-145)
--- NOTE | 2024-07-21 22:25 | CT_ITS ---
PROCEDURE INFORMATION: Exam: CT Head Without Contrast Exam date and time: 07/21/2024 11:05 PM Age: 68 years old Clinical indication: Pain; Headache; Additional info: ARCHIBALD, back pain rle weakness TECHNIQUE: Imaging protocol: Computed tomography of the head without contrast. Radiation optimization: All CT scans at this facility use at least one of these dose optimization techniques: automated exposure control; mA and/or kV adjustment per patient size (includes targeted exams where dose is matched to clinical indication); or iterative reconstruction. COMPARISON: CT HEAD/BRAIN WO CON 07/06/2023 11:14 AM FINDINGS: Brain: No acute intracranial hemorrhage, midline shift or mass effect. Mild hypodensities within the cerebral white matter most consistent with chronic small-vessel ischemic changes. Cerebral ventricles: No ventriculomegaly. Paranasal sinuses: Small left sphenoid sinus air-fluid level which may represent acute sinusitis. Mastoid air cells: Visualized mastoid air cells are well aerated. Bones: Unremarkable. No acute fracture. Soft tissues: Unremarkable. IMPRESSION: No acute intracranial findings.
--- NOTE | 2024-07-21 22:25 | CT_ITS ---
PROCEDURE INFORMATION: Exam: CT Lumbar Spine Without Contrast Exam date and time: 07/21/2024 11:12 PM Age: 68 years old Clinical indication: Low back pain; Additional info: ARCHIBALD, back pain rle weakness TECHNIQUE: Imaging protocol: Computed tomography of the lumbar spine without contrast. Radiation optimization: All CT scans at this facility use at least one of these dose optimization techniques: automated exposure control; mA and/or kV adjustment per patient size (includes targeted exams where dose is matched to clinical indication); or iterative reconstruction. COMPARISON: MR LUMBAR SPINE WO CON 12/10/2020 8:00 AM FINDINGS: Tubes, catheters and devices: Implantable stimulator device generators in the soft tissues of the bilateral flanks. Bones/joints: No acute fracture. L4-L5 laminectomy. L3-L5 fusion. L4-L5 prosthetic disc. No significant central canal or neural foraminal stenosis. Soft tissues: Unremarkable. IMPRESSION: No acute fracture or subluxation. No significant central canal or neural foraminal stenosis. Intact L3-L5 fusion hardware and prosthetic L4-L5 disc.
--- NOTE | 2024-07-21 22:25 | CT_ITS ---
PROCEDURE INFORMATION: Exam: CT Thoracic Spine Without Contrast Exam date and time: 07/21/2024 11:09 PM Age: 68 years old Clinical indication: Pain in thoracic spine; Additional info: ARCHIBALD, back pain rle weakness TECHNIQUE: Imaging protocol: Computed tomography of the thoracic spine without contrast. Radiation optimization: All CT scans at this facility use at least one of these dose optimization techniques: automated exposure control; mA and/or kV adjustment per patient size (includes targeted exams where dose is matched to clinical indication); or iterative reconstruction. COMPARISON: FINDINGS: Tubes, catheters and devices: There is an intrathecal spine stimulator that terminates at the T7 level. There is C6-C7 anterior fusion hardware. Bones/joints: There is a mild compression deformity in the superior endplate of T11. There is no central canal stenosis. There is mild scoliosis. Soft tissues: Unremarkable. IMPRESSION: Mild T11 compression fracture with out central canal stenosis.
[2024-07-21 22:28] LABS: Alanine Aminotransferase 14 U/L (12-78); Albumin/Globulin Ratio 1.5 (1.1-1.8); Alkaline Phosphatase 96 U/L (38-126); Anion Gap 4.3 mEq/L (5-15); Aspartate Amino Transferase 35 U/L (14-36); Bilirubin,Total 0.6 mg/dl (0.2-1.3); Blood Urea Nitrogen 11 mg/dl (7-17); Calcium 9.7 mg/dl (8.4-10.2); Carbon Dioxide 34 mmol/L (22.0-30.0); Creatinine Clearance Estimated 79 mL/min (50-200); Estimated Glomerular Filt Rate 71 ml/min (>60); GFR (African American) 86 ML/MIN (>60); Globulin 2.8 g/dL (1.3-3.2); Glucose 85 mg/dl (74-100); Total Protein,Serum 7.1 g/dl (6.3-8.2)
[2024-07-21] MEDS: SODIUM CHLORIDE 0.9% 10ML SYR (RAD ONLY) 10 ML IV (23:26)
[2024-07-21] MEDS: IOPAMIDOL-370 (76%);100ML BOTTLE 80 ML IV (23:26)
[2024-07-21 23:55] LABS: HIV Combo NEGATIVE (Negative)
[2024-07-22] MEDS: ONDANSETRON 4MG/2ML VIAL 4 MG IV (00:03)
[2024-07-22 01:11] VITALS: BP 170/85; PULSE 64; RESP 20; O2SAT 94
[2024-07-22 01:18] LABS: Troponin I < 0.01 ng/ml (0.00-0.034)
[2024-07-22] MEDS: PROCHLORPERAZINE 10MG/2ML VIAL 10 MG IV (02:58)
[2024-07-22 03:38] VITALS: BP 169/81; PULSE 78; RESP 16; TEMP 36.6; O2SAT 98
[2024-07-23 07:09] LABS: HCV Ab Non Reactive (Non Reactive)
== END 2024-07-22 03:37 | disposition home or self-care (01) ==
PROVIDERS: Emergency Medicine; Emergency Provider Emergency Medicine; PCP Internal Medicine Adolescent Medicine
DX: M43.9 Deforming dorsopathy, unspecified (principal); I10 Essential (primary) hypertension; R68.84 Jaw pain; R07.9 Chest pain, unspecified; R51.9 Headache, unspecified; M79.662 Pain in left lower leg; R53.1 Weakness
CPT/HCPCS: 70450; 70496; 70498; 72125; 72128; 72131; 80053; 83690; 84484; 85025; 85610; 86803; 87389; 93005; 96374; 96375; 99285; J0780; J2405; Q9967

== ENCOUNTER 2024-09-12 09:41 | Outpatient (CLI) | payer MEDICARE, BC, SELFPAY ==
[2024-09-12] MEDS: DENOSUMAB 60 MG/ML SYRINGE SUBCUT (09:54)
[2024-09-12 09:57] VITALS: BP 139/72; PULSE 72; RESP 18; TEMP 36.6; O2SAT 98
== END 2024-09-12 10:06 | disposition home or self-care (01) ==
LOC: INF 09:43
PROVIDERS: PCP Nurse Practitioner Family; Visit Provider Nurse Practitioner Family
DX: M81.0 Age-related osteoporosis without current pathological fracture (principal)
CPT/HCPCS: 96372; J0897

== ENCOUNTER 2024-09-26 21:01 | Observation (INO) | payer MEDICARE, BC, SELFPAY ==
[2024-09-26 21:06] VITALS: BP 151/83; PULSE 86; RESP 18; TEMP 36.8; O2SAT 98; BMI 32.8
[2024-09-26 22:00] VITALS: BP 165/84; PULSE 80; O2SAT 95
--- NOTE | 2024-09-26 22:02 | ECG_ITS ---
APPROVED REPORT Exam: Resting ECG HR:80 bpm ECG Measurements Heart Rate 80 AXES MD 200 P 76 QRSd 86 QRS 1 QT 186 T 0 QTc 222 Conclusion SINUS RHYTHM RBBB Not significantly changed from prior No STEMI Electronically signed by : BERTIN SALCEDO, 09/27/2024 23:58:35
[2024-09-26 22:03] LABS: Microscopic, Urine URINE MICROSCOPIC (MICROSCOPIC)
[2024-09-26 22:09] LABS: Appearance,Urine CLEAR (Clear); Bilirubin,Urine Negative (Negative); Blood, Urine TRACE-I (Negative); Color,Urine YELLOW (Yellow); Glucose,Urine (UA) Negative (Negative); Ketones,Urine Negative (Negative); Leukocyte Esterase,Urine TRACE (Negative); Nitrate,Urine POSITIVE (Negative); PH,Urine 6.5 (5.0-8.5); Protein,Urine Negative (Negative); Urobilinogen,Urine 0.2 EU/dl (0.2)
--- NOTE | 2024-09-26 22:09 | CT_ITS ---
PROCEDURE INFORMATION: Exam: CT Abdomen And Pelvis With Contrast Exam date and time: 09/26/2024 10:46 PM Age: 68 years old Clinical indication: Abdominal pain; Additional info: H/o mult prior abd surg, no bm, gen pain/nausea TECHNIQUE: Imaging protocol: Computed tomography of the abdomen and pelvis with contrast. Radiation optimization: All CT scans at this facility use at least one of these dose optimization techniques: automated exposure control; mA and/or kV adjustment per patient size (includes targeted exams where dose is matched to clinical indication); or iterative reconstruction. Contrast material: ISOVUE; Contrast volume: 75 ml; Contrast route: IV; COMPARISON: CT ABDOMEN WO CON 05/05/2019 9:27 AM FINDINGS: Tubes, catheters and devices: Infusion device and spinal stimulator device are both present in the bony central canal. Liver: Normal. No mass. Gallbladder and biliary ducts: Cholecystectomy with mild compensatory intra/extrahepatic biliary ductal dilation. Pancreas: Normal. No ductal dilation. Spleen: Normal. No splenomegaly. Adrenal glands: Normal. No mass. Kidneys and ureters: Mild diffuse atrophy of the bilateral kidneys [id number]. Nonobstructing calyceal calculi are present in the left kidney. Stomach and bowel: Previous rectosigmoid anastomosis. Appendix: Appendix is not reliably identified, but no pericecal inflammatory finding identified. Intraperitoneal space: No free fluid. Vasculature: Unremarkable. No abdominal aortic aneurysm. Lymph nodes: Unremarkable. No enlarged lymph nodes. Urinary bladder: Unremarkable as visualized. Reproductive: Unremarkable as visualized. Bones/joints: Previous laminectomy at the L4 level and partial laminectomy L3. Posterior fusion L3-L5. Soft tissues: Unremarkable. IMPRESSION: 1. Postoperative findings and incidental findings as above. 2. No definite acute intra-abdominal abnormality.
--- NOTE | 2024-09-26 22:13 | ED_ITS ---
Discharge Plan Disposition Patient Disposition: Admitted Condition: Fair Prescriptions Prescriptions: No Action levothyroxine 88 mcg tablet 88 mcg PO DAILY hydrocortisone 5 mg tablet 5 mg PO BID Patient Comments: TAKE ONE TABLET BY MOUTH TWICE DAILY duloxetine [Cymbalta] 60 mg capsule,delayed release(DR/EC) 60 mg PO BID Patient Comments: TAKE 1 CAPSULE BY MOUTH TWICE DAILY rosuvastatin [Crestor] 20 mg tablet 20 mg PO DAILY Patient Comments: TAKE 1 TABLET BY MOUTH ONCE DAILY FOR 90 DAYS Ubrelvy 100 mg tablet 100 mg PO DAILYP PRN (Reason: MIGRAINES) sodium bicarbonate 650 MG tablet 650 mg PO DAILY eszopiclone [Lunesta] 3 MG tablet 3 mg PO HS albuterol sulfate [Ventolin HFA] 108 HFA aerosol inhaler 2 puffs PO Q4HP PRN (Reason: Shortness Of Breath) Patient Comments: geriatric eodhejek-muae-gcqh 1 EACH tablet 1 each PO DAILY lamotrigine 100 MG tablet 100 mg PO BID memantine [Namenda] 10 MG tablet 10 mg PO BID montelukast 10 MG tablet 10 mg PO PM quetiapine 300 mg tablet 300 mg PO HS Patient Comments: TAKE 1 TABLET BY MOUTH ONCE DAILY AT NIGHT formoterol fumarate 20 mcg/2 mL solution for nebulization 2 ml INHALATION BIDRT PRN (Reason: SHORTNESS OF BREATH) Patient Comments: INHALE 1 VIAL BY NEBULIZER TWICE DAILY donepezil [Aricept] 23 mg tablet 23 mg PO DAILY Patient Comments: TAKE 1 TABLET BY MOUTH ONCE DAILY Dupixent Pen 300 mg/2 mL pen injector 300 mg SQ QOW Nurtec ODT 75 mg Tablet,Disintegrating 75 mg PO DAILY doxycycline monohydrate 100 mg tablet 100 mg PO Q12 10 Days Qty: 20 0RF methylprednisolone 4 mg Tablets,Dose Pack 4 mg PO DIRECTED 6 Days Qty: 21 0RF Rx Instructions: Take 1 pack as directed for 6 days guaifenesin [Mucinex] 600 mg tablet extended release 12hr 600 - 1,200 mg PO BIDP PRN (Reason: Congestion) Qty: 30 0RF fluticasone furoate-vilanterol [Breo Ellipta] 100-25 mcg/dose blister with device 1 ea INHALATION DAILY Patient Comments: INHALE 1 PUFF BY MOUTH ONCE DAILY oxycodone 20 mg tablet 15 mg PO QID benzocaine-menthol 6-10 mg lozenge 1 sona mucous membrane Q4H PRN (Reason: mouth irritation) Qty: 18 0RF Referrals Follow up/Referrals: Nereyda Erwin APRN [Primary Care Provider] - See instructions Clinical Impressions Clinical Impression: Abdominal pain, Acute UTI Instructions Patient Instructions: DI for Acute Abdominal Pain Print Language Print Language: Malay Discharge ED Provider: Amna Echevarria General Adult HPI <Amna Echevarria DO - Last Filed: 09/26/24 23:30> General Chief complaint: Abdominal Pain Stated complaint: Stomach pain Time Seen by Provider: 09/26/24 21:34 Mode of Arrival: Ambulatory Source of Information: Patient Limitations: No Limitations Description of Symptoms (Recalled from ER Triage Doc. by RN): Pt presents from how with c/o generalized abdominal pain. Pt states she feels like she is bloated and constipated. History of Present Illness HPI narrative: This patient is a 68-year-old female with a history of multiple prior abdominal surgeries including cholecystectomy, appendectomy, hysterectomy, colectomy presenting to the emergency department for evaluation with concern for generalized abdominal pain, abdominal distention, constipation. Patient states that she feels very bloated and has not been able to have a good bowel movement in about a week. She states that she did pass some stool yesterday but not a good bowel movement. She is still passing gas, but not much. She has nausea but no vomiting. No fevers, chills, urinary symptoms. Related Data Home Medications ?Medication ?Instructions ?Recorded ?Confirmed eszopiclone 3 mg tablet (Lunesta) 3 mg PO HS Insomnia 10/09/17 02/06/24 sodium bicarbonate 650 mg tablet 650 mg PO DAILY Supplement 10/09/17 02/06/24 albuterol sulfate 90 mcg/actuation 2 puffs PO Q4HP PRN Shortness Of 10/19/17 02/06/24 aerosol inhaler (Ventolin HFA) Breath geriatric yyzorgqw-wdqd-davh 1 each PO DAILY Diet supplement 10/14/19 11/26/23 lamotrigine 100 mg tablet 100 mg PO BID . 10/14/19 02/06/24 memantine 10 mg tablet (Namenda) 10 mg PO BID MEMORY 10/14/19 02/06/24 montelukast 10 mg tablet 10 mg PO PM Breathing Problems 10/14/19 02/06/24 duloxetine 60 mg capsule,delayed 60 mg PO BID MOOD 09/25/22 02/06/24 release (Cymbalta) hydrocortisone 5 mg tablet 5 mg PO BID Breathing Problems 09/25/22 02/06/24 levothyroxine 88 mcg tablet 88 mcg PO DAILY THYROID 09/25/22 02/06/24 rosuvastatin 20 mg tablet (Crestor) 20 mg PO DAILY Cholesterol 09/25/22 02/06/24 ubrogepant 100 mg tablet (Ubrelvy) 100 mg PO DAILYP PRN MIGRAINES 09/25/22 02/06/24 donepezil 23 mg tablet (Aricept) 23 mg PO DAILY MEMORY 03/29/23 02/06/24 dupilumab 300 mg/2 mL subcutaneous 300 mg SQ QOW Asthma 03/29/23 02/06/24 pen injector (Dupixent) formoterol fumarate 20 mcg/2 mL 2 ml inhalation BIDRT PRN 03/29/23 11/26/23 solution for nebulization SHORTNESS OF BREATH quetiapine 300 mg tablet 300 mg PO HS Insomnia 03/29/23 02/06/24 rimegepant 75 mg disintegrating 75 mg PO DAILY . 04/21/23 02/06/24 tablet (Nurtec ODT) fluticasone furoate 100 1 ea inhalation DAILY 02/06/24 02/06/24 mcg-vilanterol 25 mcg/dose inhalation powder (Breo Ellipta) oxycodone 20 mg tablet 15 mg PO QID Pain 02/06/24 02/06/24 Previous Rx's ?Medication ?Instructions ?Recorded doxycycline monohydrate 100 mg 100 mg PO Q12 10 days #20 tabs 02/06/24 tablet guaifenesin 600 mg tablet, 600 - 1,200 mg (1 - 2 x 600 mg) PO 02/06/24 extended release 12 hr (Mucinex) BIDP PRN Congestion #30 tabs methylprednisolone 4 mg tablets in 4 mg PO DIRECTED 6 days #21 tabs 02/06/24 a dose pack benzocaine 6 mg-menthol 10 mg 1 sona mucous membrane Q4H PRN 02/08/24 lozenges mouth irritation #18 ea Allergies Allergy/AdvReac Type Severity Reaction Status Date / Time cephalexin Allergy Intermediate BLISTERS Verified 11/26/23 08:42 IN MOUTH AND THROAT clindamycin Allergy Intermediate Blister Verified 11/26/23 08:42 erythromycin base Allergy Intermediate BLISTERS Verified 11/26/23 08:42 IN MOUTH AND THROAT meropenem Allergy Unknown Verified 11/26/23 08:42 azithromycin Allergy Rash Verified 02/06/24 11:54 levofloxacin (From Levaquin) Allergy Verified 11/26/23 08:42 nirmatrelvir (From Paxlovid) Allergy Verified 11/26/23 08:42 ritonavir (From Paxlovid) Allergy Verified 11/26/23 08:42 pregabalin (From Lyrica) AdvReac Mild Hallucinati Verified 11/26/23 08:42 ng codeine AdvReac Unknown Verified 11/26/23 08:42 PFSH <Amna Echevarria DO - Last Filed: 09/26/24 23:30> [facility] Disclaimer: The information contained in this section may have been updated after the patient was seen, as this information can be updated by other users. Medical History Hot flashes Abscess of vulva Retinal detachment Ileus, unspecified History of back pain History of back pain Surgical History History of lumpectomy History of hip replacement History of right shoulder replacement History of surgery on left wrist History of foot surgery History of cataract surgery History of colectomy History of cholecystectomy History of appendectomy History of hysterectomy History of lumbar surgery Hx of cervical spine surgery Family History Mother Cancer Diabetes Sister Diabetes Social History Smoking Status: Never smoker second hand exposure: No alcohol intake: never substance use type: denies use current occupational status: retired Travel in the last 8 weeks: None household members: spouse housing: house education level: high school current occupation: retired from [employer] current occupational exposures/hazards: No caffeine: Yes Have you lived/traveled outside [place] in past 30 days?: No Contact w/someone who lives/traveled outside US past 30 days?: No Exposure to someone with infectious disease in past 14 days?: No Do you have a fever (greater than 100.4 F or 38 C)?: No Have you tested positive for COVID-19: No Exposed to someone with COVID-19 in past 14 days?: No Do you have a sore throat?: No Do you have a cough?: No Do you have any weakness?: No Do you have any diarrhea?: No Are you experiencing any unusual bleeding?: No Do you have any muscle aches/pain?: No Do you have any abdominal pain?: Yes Are you experiencing loss of taste or smell?: No Other Medical History Have you received the Flu Vaccine for this season: Yes Have you received the Pneumonia Vaccine: Yes <Amna Echevarria DO - Last Filed: 09/26/24 23:30> ROS Obtained: Yes All systems reviewed & no additional complaints except as documented Physical Exam <Amna Echevarria DO - Last Filed: 09/26/24 23:30> General General appearance: alert and in no apparent distress Head Head exam: atraumatic and normocephalic Eye Eye exam: Present normal appearance, PERRL and EOMI ENT ENT exam: Present normal exam, normal oropharynx, mucous membranes moist and normal external ear exam Neck Neck exam: Present normal inspection, full ROM and trachea midline; Absent tenderness Chest Chest inspection: Present normal inspection and symmetric chest wall rise; Absent tenderness Respiratory Respiratory exam: Present normal lung sounds bilaterally; Absent respiratory distress, wheezes, stridor or accessory muscle use Cardiovascular Cardiovascular exam: Present regular rate and normal rhythm Abdominal Exam Abdominal exam: Present distention and tenderness (Generalized); Absent guarding or rebound Extremities Exam Extremities exam: Present normal inspection, full ROM and normal capillary refill; Absent tenderness or edema Back Exam Back exam: Present normal inspection and full ROM; Absent tenderness Neurological Exam Neurological exam: Present alert, oriented X3, CN II-XII intact and normal gait; Absent motor sensory deficit Psychiatric Psychiatric exam: Present normal affect and normal mood Skin Skin exam: Present warm and dry Medical Decision Making <Amna Echevarria DO - Last Filed: 09/26/24 23:30> Medical Records Medical records reviewed: Yes I reviewed the patient's medical records. Screening: Per USPSTF and CDC recommendations, given the prevalence of disease in our region, it is our hospital?s policy to screen for HIV and viral Hepatitis for all patients aged 18 and over and those with ongoing risk factors. Romeo Inquiry Pt receiving controlled substance: No Vital Signs: 09/26/24 21:06 09/26/24 22:00 09/26/24 22:30 Temperature 98.3 F Temperature Source Oral Pulse Rate 80 79 Pulse Rate [Right] 86 Respiratory Rate 18 Blood Pressure 165/84 H 162/82 H Blood Pressure [Right Arm] 151/83 H Blood Pressure Mean 108 Blood Pressure Mean [Right Arm] 105 Blood Pressure Source [Right Arm] Automatic Cuff Blood Pressure Position [Right Arm] Sitting 02 Sat by Pulse Oximetry 98 95 95 Oxygen Delivery Method Room Air Room Air 09/26/24 22:59 09/26/24 23:30 Temperature Temperature Source Pulse Rate 85 89 Pulse Rate [Right] Respiratory Rate Blood Pressure 167/77 H 118/82 Blood Pressure [Right Arm] Blood Pressure Mean 94 Blood Pressure Mean [Right Arm] Blood Pressure Source [Right Arm] Blood Pressure Position [Right Arm] 02 Sat by Pulse Oximetry 95 91 L Oxygen Delivery Method Lab Data Lab results reviewed: Yes I reviewed the patient's lab results. Lab Results 09/26/24 21:20: WBC 4.0 L, RBC 3.93 L, Hgb 12.2, Hct 37.9, MCV 96.4, MCH 31.0, MCHC 32.2, RDW 14.6, Plt Count 144, MPV 11.1 H, Neut % (Auto) 59.3, Lymph % (Auto) 27.5, [place] % (Auto) 11.3 H, Eos % (Auto) 0.8, Baso % (Auto) 0.8, Neut # (Auto) 2.4, Lymph # (Auto) 1.1, [place] # (Auto) 0.5, Eos # (Auto) 0.0, Baso # (Auto) 0.0, Sodium 137, Potassium 4.0, Chloride 107, Carbon Dioxide 27, Anion Gap 7.0, BUN 16, Creatinine 0.70, Estimated Creat Clear 79, Estimated GFR 83, Est GFR ( Amer) 100, Glucose 100, Calcium 9.0, Total Bilirubin 0.5, AST 67 H, ALT 33, Alkaline Phosphatase 119, Troponin I < 0.01, Total Protein 7.1, Albumin 4.2, Globulin 2.9, Albumin/Globulin Ratio 1.4, Lipase 117 09/26/24 21:58: Urine Color Yellow, Urine Appearance Clear, Urine pH 6.5, Ur Specific [place] 1.020, Urine Protein Negative, Urine Glucose (UA) Negative, Urine Ketones Negative, Urine Blood Trace-i, Urine Nitrate Positive A, Urine Bilirubin Negative, Urine Urobilinogen 0.2, Ur Leukocyte Esterase Trace, Urine RBC 3-5, Urine WBC 3-5, Ur Squamous Epith Cells Occasional, Triple Phos Crystals 2+, Urine Bacteria 1+ 09/26/24 22:11: Lactate 1.2 09/26/24 21:20 09/26/24 21:20 Orders (Tests/Meds): ED MEDICATIONS Generic Name Dose Route Start Last Admin Trade Name Freq PRN Reason Stop Dose Admin Sodium Chloride 10 ml 09/26/24 22:54 09/26/24 22:54 Sodium Chloride 0.9% 10ml Syr (Rad Only) IV 10/26/24 22:53 10 ml NEEDED PRN Administration Maintain IV Site Discontinued Medications Generic Name Dose Route Start Last Admin Trade Name Freq PRN Reason Stop Dose Admin Acetaminophen 1,000 mg 09/26/24 22:10 09/26/24 22:18 Acetaminophen 1,000mg/100ml Vial IV 09/26/24 22:11 1,000 mg ONCE ONE Administration Hydromorphone HCl 0.5 mg 09/27/24 00:03 Hydromorphone 2mg/Ml Syringe IV 09/27/24 00:04 ONCE ONE Lactated Ringer's 1,000 mls @ 999 mls/hr 09/26/24 22:10 09/26/24 22:18 Lactated Ringer's 1000 Ml Bag IV 09/26/24 23:10 999 mls/hr .Q1H1M ONE Administration Ceftriaxone Sodium 2 gm/ 100 mls @ 200 mls/hr 09/26/24 23:21 09/26/24 23:45 Sodium Chloride IV 09/26/24 23:50 200 mls/hr ONCE ONE Administration Iopamidol 75 ml 09/26/24 22:54 09/26/24 22:54 Iopamidol-370 (76%);100ml Bottle IV 09/26/24 22:55 75 ml ONCE ONE Administration Ketorolac Tromethamine 15 mg 09/26/24 22:10 09/26/24 22:19 Ketorolac 30mg/Ml Vial IV 09/26/24 22:11 15 mg ONCE ONE Administration Ondansetron HCl 4 mg 09/26/24 22:10 09/26/24 22:19 Ondansetron 4mg/2ml Vial IV 09/26/24 22:11 4 mg ONCE ONE Administration Ondansetron HCl 4 mg 09/27/24 00:03 Ondansetron 4mg/2ml Vial IV 09/27/24 00:04 ONCE ONE ORDERS Category Date Time Status CT abdomen pelvis w con Stat Cat Scan 09/26/24 22:09 Completed Complete Blood Count Auto Diff Stat Lab 09/26/24 21:20 Completed Comprehensive Metabolic Panel Stat Lab 09/26/24 21:20 Completed Lactic Acid Stat Lab 09/26/24 22:11 Completed Lipase Stat Lab 09/26/24 21:20 Completed Trop I [Troponin I] Stat Lab 09/26/24 21:20 Completed Troponin I Q3H Lab 09/27/24 01:00 Ordered Troponin I Q3H Lab 09/27/24 04:00 Ordered UA [Urinalysis and Microscopic] Stat Lab 09/26/24 21:58 Completed Blood Culture Stat Micro 09/26/24 23:21 Ordered Urine Culture Stat Micro 09/26/24 21:58 Received ECG Data Tracing #1: I reviewed this ECG and interpreted as documented below: Normal sinus rhythm with a ventricular rate of [address] changes without acute STEMI. Right bundle branch block. ECG initial impression date: 09/26/24 ECG initial impression time: 22:05 Medical Decision Narrative: In summary, this patient is a 68-year-old female presenting to the Emergency Department for evaluation of generalized abdominal pain and bloating, constipation, nausea. Differential diagnoses considered include but are not limited to bowel obstruction, constipation, fecal impaction, colitis, diverticulitis, pancreatitis. Ruling out the most morbid conditions drove assessment. It should be noted patient's history includes obesity, hypothyroidism, hyperlipidemia, and multiple prior abdominal surgeries which may or may not be at goal therapy. This complicates all aspects of care by increasing patient's risk for morbidity. On exam, patient is lying in bed in no acute distress. She has reassuring vital signs on cardiac telemetry. She has generalized abdominal tenderness and mild distention but no rebound or guarding. She is afebrile and has had no vomiting. Workup included CBC, CMP, lipase, troponin, lactic acid, EKG, CT abdomen pelvis with IV contrast. She was given a bolus of IV fluids as well as IV Toradol, acetaminophen, and Zofran for symptomatic improvement. I independently interpreted CT scan prior to the radiologist read and noted significant stool burden but I do not see an obvious obstruction, radiology read is pending. Please see their read for final interpretation. Labs were obtained that demonstrated mild leukopenia. Chemistry is reassuring with no CATHLEEN, mildly elevated AST but no other acute concern. Urine is concerning for infection, started cultures including blood cultures and IV Rocephin. She has allergy to cephalexin is not a true allergy.. Patient was signed out to the oncoming provider, Dr. Stephenson, pending CT and disposition. <Watson Stephenson MD - Last Filed: 09/27/24 00:23> Vital Signs: 09/26/24 21:06 09/26/24 22:00 09/26/24 22:30 Temperature 98.3 F Temperature Source Oral Pulse Rate 80 79 Pulse Rate [Right] 86 Respiratory Rate 18 Blood Pressure 165/84 H 162/82 H Blood Pressure [Right Arm] 151/83 H Blood Pressure Mean 108 Blood Pressure Mean [Right Arm] 105 Blood Pressure Source [Right Arm] Automatic Cuff Blood Pressure Position [Right Arm] Sitting 02 Sat by Pulse Oximetry 98 95 95 Oxygen Delivery Method Room Air Room Air 09/26/24 22:59 09/26/24 23:30 Temperature Temperature Source Pulse Rate 85 89 Pulse Rate [Right] Respiratory Rate Blood Pressure 167/77 H 118/82 Blood Pressure [Right Arm] Blood Pressure Mean 94 Blood Pressure Mean [Right Arm] Blood Pressure Source [Right Arm] Blood Pressure Position [Right Arm] 02 Sat by Pulse Oximetry 95 91 L Oxygen Delivery Method Lab Data Lab Results 09/26/24 21:20: WBC 4.0 L, RBC 3.93 L, Hgb 12.2, Hct 37.9, MCV 96.4, MCH 31.0, MCHC 32.2, RDW 14.6, Plt Count 144, MPV 11.1 H, Neut % (Auto) 59.3, Lymph % (Auto) 27.5, [place] % (Auto) 11.3 H, Eos % (Auto) 0.8, Baso % (Auto) 0.8, Neut # (Auto) 2.4, Lymph # (Auto) 1.1, [place] # (Auto) 0.5, Eos # (Auto) 0.0, Baso # (Auto) 0.0, Sodium 137, Potassium 4.0, Chloride 107, Carbon Dioxide 27, Anion Gap 7.0, BUN 16, Creatinine 0.70, Estimated Creat Clear 79, Estimated GFR 83, Est GFR ( Amer) 100, Glucose 100, Calcium 9.0, Total Bilirubin 0.5, AST 67 H, ALT 33, Alkaline Phosphatase 119, Troponin I < 0.01, Total Protein 7.1, Albumin 4.2, Globulin 2.9, Albumin/Globulin Ratio 1.4, Lipase 117 09/26/24 21:58: Urine Color Yellow, Urine Appearance Clear, Urine pH 6.5, Ur Specific [place] 1.020, Urine Protein Negative, Urine Glucose (UA) Negative, Urine Ketones Negative, Urine Blood Trace-i, Urine Nitrate Positive A, Urine Bilirubin Negative, Urine Urobilinogen 0.2, Ur Leukocyte Esterase Trace, Urine RBC 3-5, Urine WBC 3-5, Ur Squamous Epith Cells Occasional, Triple Phos Crystals 2+, Urine Bacteria 1+ 09/26/24 22:11: Lactate 1.2 Orders (Tests/Meds): ED MEDICATIONS Generic Name Dose Route Start Last Admin Trade Name Freq PRN Reason Stop Dose Admin Sodium Chloride 10 ml 09/26/24 22:54 09/26/24 22:54 Sodium Chloride 0.9% 10ml Syr (Rad Only) IV 10/26/24 22:53 10 ml NEEDED PRN Administration Maintain IV Site Discontinued Medications Generic Name Dose Route Start Last Admin Trade Name Freq PRN Reason Stop Dose Admin Acetaminophen 1,000 mg 09/26/24 22:10 09/26/24 22:18 Acetaminophen 1,000mg/100ml Vial IV 09/26/24 22:11 1,000 mg ONCE ONE Administration Hydromorphone HCl 0.5 mg 09/27/24 00:03 Hydromorphone 2mg/Ml Syringe IV 09/27/24 00:04 ONCE ONE Lactated Ringer's 1,000 mls @ 999 mls/hr 09/26/24 22:10 09/26/24 22:18 Lactated Ringer's 1000 Ml Bag IV 09/26/24 23:10 999 mls/hr .Q1H1M ONE Administration Ceftriaxone Sodium 2 gm/ 100 mls @ 200 mls/hr 09/26/24 23:21 09/26/24 23:45 Sodium Chloride IV 09/26/24 23:50 200 mls/hr ONCE ONE Administration Iopamidol 75 ml 09/26/24 22:54 09/26/24 22:54 Iopamidol-370 (76%);100ml Bottle IV 09/26/24 22:55 75 ml ONCE ONE Administration Ketorolac Tromethamine 15 mg 09/26/24 22:10 09/26/24 22:19 Ketorolac 30mg/Ml Vial IV 09/26/24 22:11 15 mg ONCE ONE Administration Ondansetron HCl 4 mg 09/26/24 22:10 09/26/24 22:19 Ondansetron 4mg/2ml Vial IV 09/26/24 22:11 4 mg ONCE ONE Administration Ondansetron HCl 4 mg 09/27/24 00:03 Ondansetron 4mg/2ml Vial IV 09/27/24 00:04 ONCE ONE ORDERS Category Date Time Status CT abdomen pelvis w con Stat Cat Scan 09/26/24 22:09 Completed Complete Blood Count Auto Diff Stat Lab 09/26/24 21:20 Completed Comprehensive Metabolic Panel Stat Lab 09/26/24 21:20 Completed Lactic Acid Stat Lab 09/26/24 22:11 Completed Lipase Stat Lab 09/26/24 21:20 Completed Trop I [Troponin I] Stat Lab 09/26/24 21:20 Completed Troponin I Q3H Lab 09/27/24 01:00 Ordered Troponin I Q3H Lab 09/27/24 04:00 Ordered UA [Urinalysis and Microscopic] Stat Lab 09/26/24 21:58 Completed Blood Culture Stat Micro 09/26/24 23:21 Ordered Urine Culture Stat Micro 09/26/24 21:58 Received Medical Decision Narrative: In summary, this patient is a 68-year-old female presenting to the Emergency Department for evaluation of generalized abdominal pain and bloating, constipation, nausea. Differential diagnoses considered include but are not limited to bowel obstruction, constipation, fecal impaction, colitis, diverticulitis, pancreatitis. Ruling out the most morbid conditions drove assessment. It should be noted patient's history includes obesity, hypothyroidism, hyperlipidemia, and multiple prior abdominal surgeries which may or may not be at goal therapy. This complicates all aspects of care by increasing patient's risk for morbidity. On exam, patient is lying in bed in no acute distress. She has reassuring vital signs on cardiac telemetry. She has generalized abdominal tenderness and mild distention but no rebound or guarding. She is afebrile and has had no vomiting. Workup included CBC, CMP, lipase, troponin, lactic acid, EKG, CT abdomen pelvis with IV contrast. She was given a bolus of IV fluids as well as IV Toradol, acetaminophen, and Zofran for symptomatic improvement. I independently interpreted CT scan prior to the radiologist read and noted significant stool burden but I do not see an obvious obstruction, radiology read is pending. Please see their read for final interpretation. Labs were obtained that demonstrated mild leukopenia. Chemistry is reassuring with no CATHLEEN, mildly elevated AST but no other acute concern. Urine is concerning for infection, started cultures including blood cultures and IV Rocephin. She has allergy to cephalexin is not a true allergy.. Patient was signed out to the oncoming provider, Dr. Stephenson, pending CT and disposition. Stephenson: Upon my assumption of care patient is stable. I agree with the assessment and plan from Dr. Echevarria. Her abdomen is steeping press tender and I ordered Dilaudid for her. I agree that she is not peritonitic. I personally interpreted CT abdomen pelvis and do not appreciate obvious obstruction however patient does have an area of bowel wall edema near the rectum with a narrowed lumen but no obstruction. The radiology read does not comment on this but does state there is no obvious acute intra-abdominal pathology. I reached out to the radiologist and discussed this with the reading radiologist, Dr. Matthews, he agrees that there is some rectal edema without obstruction. I discussed all results with the patient, she understands urinary tract infection and since she is still having discomfort despite multiple attempts at pain control, I believe she is most appropriate for admission. She has significant debility at baseline and requires a gait belt, wheelchair for ambulation, and I am concerned that sending her home with urinary tract infection as well as persistent abdominal pain could potentially lead to falls or other injury. She and are agreeable to the patient being admitted for continued management of pain and other symptoms. I discussed this case with the hospitalist, after reviewing patient's labs, imaging, lack of obstruction but persistent abdominal pain, patient was graciously excepted to the hospitalist team for admission. She was admitted in stable condition Critical Care <Amna Echevarria, - Last Filed: 09/26/24 23:30> Critical Care Time Critical Care Time: No
[2024-09-26] MEDS: ACETAMINOPHEN 1,000MG/100ML VIAL 1000 MG IV (22:18)
[2024-09-26] MEDS: LACTATED RINGERS 1000ML 1,000 ML 999 ML IV (22:18)
[2024-09-26] MEDS: ONDANSETRON 4MG/2ML VIAL 4 MG IV (22:19)
[2024-09-26] MEDS: KETOROLAC 30MG/ML VIAL 15 MG IV (22:19)
[2024-09-26 22:21] LABS: Alanine Aminotransferase 33 U/L (12-78); Albumin Level 4.2 g/dl (3.5-5.0); Albumin/Globulin Ratio 1.4 (1.1-1.8); Alkaline Phosphatase 119 U/L (38-126); Aspartate Amino Transferase 67 U/L (14-36); Bilirubin,Total 0.5 mg/dl (0.2-1.3); Blood Urea Nitrogen 16 mg/dl (7-17); Carbon Dioxide 27 mmol/L (22.0-30.0); Chloride 107 mmol/L (98-107); Creatinine Clearance Estimated 79 mL/min (50-200); Estimated Glomerular Filt Rate 83 ml/min (>60); GFR (African American) 100 ML/MIN (>60); Globulin 2.9 g/dL (1.3-3.2); Glucose 100 mg/dl (74-100); Lipase 117 U/L (23-300); Sodium 137 mmol/L (136-145); Total Protein,Serum 7.1 g/dl (6.3-8.2)
[2024-09-26 22:30] VITALS: BP 162/82; PULSE 79; O2SAT 95
[2024-09-26 22:34] LABS: Lactic Acid 1.2 mmol/L (0.7-2.1)
[2024-09-26 22:35] LABS: Basophils % 0.8 % (0.1-2.0); Eosinophils % 0.8 % (0.1-12.0); Hematocrit 37.9 % (37.0-47.0); Hemoglobin 12.2 g/dL (12.2-16.2); Lymphocytes # 1.1 K/mm3 (0.7-4.5); Lymphocytes % 27.5 % (10-50); Mean Corpuscular HGB Conc 32.2 g/dL (31.8-35.4); Mean Corpuscular Volume 96.4 fl (81-99); Mean Platelet Volume 11.1 fl (7.4-10.4); Monocytes # 0.5 K/mm3 (0.1-1.0); Monocytes % 11.3 % (1.7-9.3); Neutrophils # 2.4 K/mm3 (1.8-7.8); Neutrophils % 59.3 % (37.0-80.0); Platelet Count 144 K/mm3 (142-424); Red Blood Count 3.93 M/mm3 (4.20-5.40); Red Cell Distribution Width 14.6 % (11.5-17.5)
--- NOTE | 2024-09-26 22:44 | PC.NURSE ---
pt out of room for testing at this time.
[2024-09-26 22:50] LABS: Troponin I < 0.01 ng/ml (0.00-0.034)
--- NOTE | 2024-09-26 22:50 | PC.NURSE ---
pt returned from ct scan without incident.
[2024-09-26] MEDS: SODIUM CHLORIDE 0.9% 10ML SYR (RAD ONLY) 10 ML IV (22:54)
[2024-09-26] MEDS: IOPAMIDOL-370 (76%);100ML BOTTLE 75 ML IV (22:54)
[2024-09-26 22:59] VITALS: BP 167/77; PULSE 85; O2SAT 95
[2024-09-26 23:15] LABS: Bacteria,Urine 1+ /lpf; Squamous Epithelial Cell,Urine Occasional #/hpf (0-5)
[2024-09-26 23:16] LABS: Triple Phosphate Crystal,Urine 2+ /lpf
[2024-09-26 23:30] VITALS: BP 118/82; PULSE 89; O2SAT 91
[2024-09-26] MEDS: CEFTRIAXONE SODIUM 2 GM in 0.9 % SODIUM CHLORIDE 100 ML IV (23:45)
--- NOTE | 2024-09-26 23:46 | PC.NURSE ---
antibiotic pending blood cultures, tech at the bedside to obtain at this time.
[2024-09-27] VITALS (8 sets, daily range): BP systolic 118–175; BP diastolic 67–82; PULSE 70–89; RESP 14–18; TEMP 36.8–36.9; O2SAT 92–98; BMI 31.3
[2024-09-27] MEDS: ONDANSETRON 4MG/2ML VIAL 4 MG IV ×2 (00:22→11:25)
[2024-09-27] MEDS: HYDROMORPHONE 2MG/ML SYRINGE 0.5 MG IV ×2 (00:22→06:28)
--- NOTE | 2024-09-27 00:31 | PC.NURSE ---
Report given to Lindsay RN
--- NOTE | 2024-09-27 01:16 | PC.NURSE ---
Patient arrived to floor via wheelchair from ED at 00:39.
[2024-09-27] MEDS: KETOROLAC 30MG/ML VIAL 15 MG IM ×3 (01:25→21:55)
--- NOTE | 2024-09-27 01:31 | P.HP_ITS ---
<Statement entered by Ramone Pruitt MD - 10/03/24 22:57> Personally evaluated patient and agree with plan of care as outlined by the [facility]LE [facility]. History of Present Illness *Admission Date: 09/27/24 *Reason for visit:: Abdominal pain *History of present illness: The patient is a 68-year-old female with a significant past medical history of degenerative disc disease (requiring chronic opioid pain management), obesity, hypothyroidism, hyperlipidemia, and multiple prior abdominal surgeries (cholecystectomy, appendectomy, hysterectomy, and colectomy), who presents to the Emergency Department complaining of generalized abdominal pain, bloating, and constipation for approximately one week. She reports feeling ?very bloated? and states that although she passed a small amount of stool yesterday, she has not had a satisfactory bowel movement in about a week. She notes some ongoing ability to pass gas, though less than usual, and endorses nausea without vomiting. She denies fever, chills, or urinary symptoms. Given her presentation, there was concern for possible bowel obstruction, fecal impaction, colitis, diverticulitis, or pancreatitis, particularly in the context of her extensive surgical history. On examination, she appears in no acute distress, with reassuring vital signs on cardiac telemetry. Abdominal exam is notable for generalized tenderness and mild distension but no rebound or guarding. She has been afebrile and without vomiting. Initial workup included a CBC showing mild leukopenia but no significant left shift, comprehensive metabolic panel (CMP) with reassuring electrolytes and no acute kidney injury, a mild isolated elevation in AST, and a lipase level that was not significantly elevated (117). Urinalysis demonstrated findings concerning for infection (trace leukocyte esterase, positive nitrites, and some bacteria), prompting cultures and empiric intravenous Rocephin (noting a non?true allergy to cephalexin). A CT scan of the abdomen/pelvis with IV contrast was performed and independently reviewed at bedside, revealing signific ant stool burden without clear evidence of mechanical obstruction; final radiology read is pending. The patient received IV fluids, IV Toradol, acetaminophen, and Zofran for symptomatic relief. At this time, she remains hemodynamically stable with no signs of an acute abdomen, and further management will be guided by radiology?s final CT interpretation and microbiological culture results. [facility] Disclaimer: The information contained in this section may have been updated after the patient was seen, as this information can be updated by other users. Medical History Hot flashes Abscess of vulva Retinal detachment Ileus, unspecified History of back pain History of back pain Surgical History History of lumpectomy History of hip replacement History of right shoulder replacement History of surgery on left wrist History of foot surgery History of cataract surgery History of colectomy History of cholecystectomy History of appendectomy History of hysterectomy History of lumbar surgery Hx of cervical spine surgery Family History Mother Cancer Diabetes Sister Diabetes Social History (Updated 09/27/24 @ 00:58 by Lindsay Medina RN) Smoking Status: Never smoker second hand exposure: No alcohol intake: never substance use type: denies use current occupational status: retired Travel in the last 8 weeks: None household members: spouse housing: house education level: high school current occupation: retired from [employer] current occupational exposures/hazards: No caffeine: Yes Have you lived/traveled outside [place] in past 30 days?: No Contact w/someone who lives/traveled outside US past 30 days?: No Exposure to someone with infectious disease in past 14 days?: No Do you have a fever (greater than 100.4 F or 38 C)?: No Have you tested positive for COVID-19: No Exposed to someone with COVID-19 in past 14 days?: No Do you have a sore throat?: No Do you have a cough?: No Do you have any weakness?: No Do you have any diarrhea?: No Are you experiencing any unusual bleeding?: No Do you have any muscle aches/pain?: No Do you have any abdominal pain?: Yes Are you experiencing loss of taste or smell?: No Other Medical History Have you received the Flu Vaccine for this season: Yes Have you received the Pneumonia Vaccine: Yes Review of Systems Review of Systems Review of systems (narrative): 13 review of systems negative except as listed in HPI Meds Home Medications and Allergies Home Medications ?Medication ?Instructions ?Recorded ?Confirmed ?Type eszopiclone 3 mg tablet (Lunesta) 3 mg PO HS Insomnia 10/09/17 02/06/24 History sodium bicarbonate 650 mg tablet 650 mg PO HS Supplement 10/09/17 09/27/24 History albuterol sulfate 90 mcg/actuation 2 puffs PO Q4HP PRN Shortness Of 10/19/17 09/27/24 History aerosol inhaler (Ventolin HFA) Breath geriatric ahnaphkm-yyey-dute 1 each PO DAILY Diet supplement 10/14/19 09/27/24 History lamotrigine 100 mg tablet 100 mg PO BID . 10/14/19 09/27/24 History memantine 10 mg tablet (Namenda) 10 mg PO BID MEMORY 10/14/19 09/27/24 History montelukast 10 mg tablet 10 mg PO HS Breathing Problems 10/14/19 09/27/24 History duloxetine 60 mg capsule,delayed 60 mg PO BID MOOD 09/25/22 09/27/24 History release (Cymbalta) hydrocortisone 5 mg tablet 5 mg PO BID Breathing Problems 09/25/22 09/27/24 History levothyroxine 88 mcg tablet 88 mcg PO DAILY THYROID 09/25/22 09/27/24 History rosuvastatin 20 mg tablet (Crestor) 20 mg PO DAILY Cholesterol 09/25/22 09/27/24 History ubrogepant 100 mg tablet (Ubrelvy) 100 mg PO DAILYP PRN MIGRAINES 09/25/22 09/27/24 History donepezil 23 mg tablet (Aricept) 23 mg PO DAILY MEMORY 03/29/23 09/27/24 History dupilumab 300 mg/2 mL subcutaneous 300 mg SQ QOW Asthma 03/29/23 02/06/24 History pen injector (Dupixent) formoterol fumarate 20 mcg/2 mL 2 ml inhalation BIDRT PRN 03/29/23 09/27/24 History solution for nebulization SHORTNESS OF BREATH quetiapine 300 mg tablet 300 mg PO HS Insomnia 03/29/23 09/27/24 History rimegepant 75 mg disintegrating 75 mg PO DAILY . 04/21/23 02/06/24 History tablet (Nurtec ODT) doxycycline monohydrate 100 mg 100 mg PO Q12 10 days #20 tabs 02/06/24 Rx tablet fluticasone furoate 100 1 ea inhalation DAILY 02/06/24 02/06/24 History mcg-vilanterol 25 mcg/dose inhalation powder (Breo Ellipta) guaifenesin 600 mg tablet, 600 - 1,200 mg (1 - 2 x 600 mg) PO 02/06/24 09/27/24 Rx extended release 12 hr (Mucinex) BIDP PRN Congestion #30 tabs methylprednisolone 4 mg tablets in 4 mg PO DIRECTED 6 days #21 tabs 02/06/24 Rx a dose pack oxycodone 20 mg tablet 15 mg PO QID Pain 02/06/24 02/06/24 History benzocaine 6 mg-menthol 10 mg 1 sona mucous membrane Q4H PRN 02/08/24 Rx lozenges mouth irritation #18 ea amlodipine 5 mg tablet 5 mg PO DAILY 09/27/24 09/27/24 History ascorbic acid (vitamin C) 1,000 mg 1,000 mg PO DAILY 09/27/24 09/27/24 History tablet (Vitamin C) baclofen 10 mg tablet 10 mg PO QID 09/27/24 09/27/24 History buspirone 5 mg tablet 5 mg PO TID 09/27/24 09/27/24 History dantrolene 50 mg capsule 100 mg PO QID 09/27/24 09/27/24 History galcanezumab-gnlm 120 mg/mL 120 mg SQ DIRECTED 09/27/24 09/27/24 History subcutaneous pen injector (Emgality Pen) pantoprazole 40 mg tablet,delayed 40 mg PO HS 09/27/24 09/27/24 History release New Prescriptions to Start Prescriptions: Allergies Allergy/AdvReac Type Severity Reaction Status Date / Time cephalexin Allergy Intermediate BLISTERS Verified 11/26/23 08:42 IN MOUTH AND THROAT clindamycin Allergy Intermediate Blister Verified 11/26/23 08:42 erythromycin base Allergy Intermediate BLISTERS Verified 11/26/23 08:42 IN MOUTH AND THROAT meropenem Allergy Unknown Verified 11/26/23 08:42 azithromycin Allergy Rash Verified 02/06/24 11:54 levofloxacin (From Levaquin) Allergy Verified 11/26/23 08:42 nirmatrelvir (From Paxlovid) Allergy Verified 11/26/23 08:42 ritonavir (From Paxlovid) Allergy Verified 11/26/23 08:42 pregabalin (From Lyrica) AdvReac Mild Hallucinati Verified 11/26/23 08:42 ng codeine AdvReac Unknown Verified 11/26/23 08:42 Exam Data for Last 24 hours Vital signs and Labs for Last 24 Hours: Temp Pulse Resp BP Pulse Ox O2 Del Method 98.2 F 83 16 147/72 H 92 L Room Air 09/27/24 00:50 09/27/24 00:50 09/27/24 00:50 09/27/24 00:50 09/27/24 00:50 09/27/24 00:50 Laboratory Results - last 24 hr 09/26/24 21:20: WBC 4.0 L, RBC 3.93 L, Hgb 12.2, Hct 37.9, MCV 96.4, MCH 31.0, MCHC 32.2, RDW 14.6, Plt Count 144, MPV 11.1 H, Neut % (Auto) 59.3, Lymph % (Auto) 27.5, [place] % (Auto) 11.3 H, Eos % (Auto) 0.8, Baso % (Auto) 0.8, Neut # (Auto) 2.4, Lymph # (Auto) 1.1, [place] # (Auto) 0.5, Eos # (Auto) 0.0, Baso # (Auto) 0.0, Sodium 137, Potassium 4.0, Chloride 107, Carbon Dioxide 27, Anion Gap 7.0, BUN 16, Creatinine 0.70, Estimated Creat Clear 79, Estimated GFR 83, Est GFR ( Amer) 100, Glucose 100, Calcium 9.0, Total Bilirubin 0.5, AST 67 H, ALT 33, Alkaline Phosphatase 119, Troponin I < 0.01, Total Protein 7.1, Albumin 4.2, Globulin 2.9, Albumin/Globulin Ratio 1.4, Lipase 117 09/26/24 21:58: Urine Color Yellow, Urine Appearance Clear, Urine pH 6.5, Ur Specific [place] 1.020, Urine Protein Negative, Urine Glucose (UA) Negative, Urine Ketones Negative, Urine Blood Trace-i, Urine Nitrate Positive A, Urine Bilirubin Negative, Urine Urobilinogen 0.2, Ur Leukocyte Esterase Trace, Urine RBC 3-5, Urine WBC 3-5, Ur Squamous Epith Cells Occasional, Triple Phos Crystals 2+, Urine Bacteria 1+ 09/26/24 22:11: Lactate 1.2 I & O for Last 24 hours: Intake & Output 09/24/24 09/25/24 09/26/24 09/27/24 23:59 23:59 23:59 23:59 Weight 95.254 kg 90.537 kg Constitutional Constitutional: no acute distress *Routine HEENT Exam Head: Present normocephalic Eye: Present EOMI and PERRL ENT: Present mucous membranes moist *Routine Neck Exam Neck: Present supple; Absent lymphadenopathy *Routine Respiratory Exam Respiratory: Present CTA bilaterally *Routine Cardiovascular Exam Cardiovascular: Present RRR *Routine Abdominal Exam Abdominal: Present soft and normoactive bowel sounds; Absent tenderness *Routine Rectal Exam Rectal:: deferred *Routine Genitalia Exam Genitalia:: deferred *Routine Extremities Exam Extremities: Absent cyanosis, clubbing or edema *Routine Skin Exam Skin: Present warm; Absent rash *Routine Neurological Exam Neurological: Present alert and oriented X3 Assessment and Plan *Assessment and plan (1) Acute UTI: Status: Acute Category: Medical Code(s): N39.0 - Urinary tract infection, site not specified (2) Abdominal pain: Status: Acute Category: Medical Code(s): R10.9 - Unspecified abdominal pain (3) Compression deformity of vertebra: Status: Acute Category: Medical Code(s): M43.9 - Deforming dorsopathy, unspecified (4) Hypertension: Status: Acute Category: Medical Code(s): I10 - Essential (primary) hypertension (5) Constipation: Status: Acute Category: Medical Code(s): K59.00 - Constipation, unspecified Plan Medical Decision Making: Given the patient?s chronic opioid use, multiple prior abdominal surgeries, and CT findings showing a significant stool burden but no overt obstruction, the primary concern is acute on chronic constipation exacerbated by opioids. Although mild leukopenia is noted, her urinalysis indicates a possible UTI, justifying empiric IV antibiotics pending culture results. Monitoring her abdominal exam and vital signs is crucial to rule out evolving obstruction or infection. Concurrently, optimizing her bowel regimen, addressing potential hypothyroidism (which can further impair motility), and minimizing opioids will guide ongoing management and promote eventual discharge once clinically improved. Generalized Abdominal Pain, Bloating, and Constipation * Presentation is likely multifactorial, significantly exacerbated by chronic opioid use for degenerative disc disease. * Bedside review of the CT abdomen/pelvis indicates no clear mechanical obstruction but notes a substantial stool burden. * Initiate an aggressive bowel regimen (e.g., polyethylene glycol, senna, bisacodyl). * Recommend increased oral fluid intake, ambulation as tolerated, and dietary modifications (e.g., increased fiber). * Continue to monitor abdominal exam and vital signs; re-evaluate for evolving signs of obstruction or ileus. * Possible Urinary Tract Infection (UTI) * Urinalysis demonstrates positive nitrites, trace leukocyte esterase, and bacteria, suggesting a UTI despite the patient?s minimal urinary symptoms. * IV Rocephin has been started empirically; adjust therapy once culture and sensitivity results are available. * Documented ?allergy? to cephalexin is not a true allergy but remains noted for caution in antibiotic selection. Mild Leukopenia * WBC count of 4.0 in the absence of a left shift or other alarming features may be a baseline or chronic variant. * Repeat CBC to assess for any trend toward normalization or ongoing leukopenia. * Correlate with clinical parameters to rule out significant infectious or bone marrow processes. Mildly Elevated AST * AST of 67 with normal ALT and alkaline phosphatase raises the possibility of a non-hepatic source (e.g., muscle injury). * Re-check liver enzymes if indicated by clinical status or if symptoms suggest hepatobiliary involvement. * Review medication list (including possible herbal or kmov-yur-izktdvg agents) for potential hepatotoxicity. Chronic Opioid Therapy * Chronic opioid use contributes to decreased gastrointestinal motility, likely worsening her constipation. * Attempt to minimize or rotate opioid analgesics if feasible; supplement with non-opioid pain control (NSAIDs, acetaminophen, muscle relaxants, topical agents) as appropriate. * Consider referral to a paintings conservator for comprehensive opioid stewardship and potential multimodal therapy. Hypothyroidism * Can further impair GI motility if poorly controlled. * Confirm current thyroid function (TSH, free T4) and adjust levothyroxine dosage as needed to achieve target levels. * Reinforce adherence to proper levothyroxine administration (fasting state, separate from other medications). Additional Comorbidities: Obesity and Hyperlipidemia * Chronic conditions that are not the primary drivers of her acute complaint but increase overall morbidity risk. * Ensure long-term follow-up with PCP or specialists to optimize management of metabolic parameters (diet, exercise, lipid-lowering therapies). Disposition and Follow-Up * Continue monitoring abdominal pain, bowel movements, and vital signs. * If the patient?s symptoms improve with the bowel regimen and antibiotic therapy for UTI, consider discharge with strict return precautions. * Provide thorough instructions on ongoing bowel care (e.g., daily laxatives, hydration), opioid-sparing strategies, and indication for urgent re-evaluation (e.g., worsening distention, inability to pass gas or stool, fever, severe pain). * Arrange close outpatient follow-up to reassess bowel function, review final culture results, and monitor thyroid function, adjusting treatment as indicated.
[2024-09-27 02:27] LABS: Troponin I < 0.01 ng/ml (0.00-0.034)
[2024-09-27] MEDS: AEROCHAMBER/OPTIHALER 1 UNIT MC (02:58)
--- NOTE | 2024-09-27 03:09 | PC.NURSE ---
Ms Sandie Frank was newly admitted on behalf of abdominal pain and a UTI. She explained that she has been having abdominal pain for about a week now, and it has progressively gotten severe within the last couple of days. The patient has been passing gas, however, and expressed that her abdomen feels very puffy. Upon palpation of her abdomen, her right upper abdominal quadrant felt more firm compared to the other quadrants; the rest of her abdomen is soft but tender. She has complained of nausea and has had a poor appetite lately, explaining that eating makes [her] pain worse. Patient was given Toradol for pain control thus far with reported relief (Dilautid also available per MAR). Admission assessment and home medication reconciliation was completed this shift. Patient has a personal gait belt that she uses during transfers/ambulation; she has required at least x1 assistance. Gait is unsteady. She uses the bedside commode for elimination needs due to reported difficulties with ambulating longer distances (per medical history). She has had a couple voids this shift; urine appearance was bright yellow with a soft odor. Patient has not expressed any urges to defecate thus far this shift. Blood pressures have been elevated; other vital signs stable. Auscultation of her heart, bowels, and lungs were within normal findings. At this time, the patient is currently resting in bed, watching TV. No apparent distress noted thus far. Call light within reach.
[2024-09-27 04:45] LABS: Basophils % 0.7 % (0.1-2.0); Eosinophils % 0.7 % (0.1-12.0); Hematocrit 34.7 % (37.0-47.0); Hemoglobin 11.3 g/dL (12.2-16.2); Lymphocytes # 1.3 K/mm3 (0.7-4.5); Lymphocytes % 29.7 % (10-50); Mean Corpuscular HGB Conc 32.6 g/dL (31.8-35.4); Mean Corpuscular Hemoglobin 31.4 pg (27.0-31.2); Mean Corpuscular Volume 96.4 fl (81-99); Mean Platelet Volume 10.7 fl (7.4-10.4); Monocytes # 0.5 K/mm3 (0.1-1.0); Monocytes % 11.7 % (1.7-9.3); Neutrophils # 2.5 K/mm3 (1.8-7.8); Platelet Count 116 K/mm3 (142-424); Red Cell Distribution Width 14.6 % (11.5-17.5); White Blood Count 4.4 K/mm3 (4.8-10.8)
[2024-09-27 05:05] LABS: Chloride 109 mmol/L (98-107); Potassium 4.2 mmoL/L (3.5-5.1); Sodium 141 mmol/L (136-145)
[2024-09-27 05:08] LABS: Anion Gap 9.2 mEq/L (5-15); Blood Urea Nitrogen 13 mg/dl (7-17); Carbon Dioxide 27 mmol/L (22.0-30.0); Creatinine Clearance Estimated 75 mL/min (50-200); Estimated Glomerular Filt Rate 99 ml/min (>60); GFR (African American) 120 ML/MIN (>60)
[2024-09-27 05:09] LABS: Calcium 8.2 mg/dl (8.4-10.2); Glucose 83 mg/dl (74-100)
[2024-09-27 05:17] LABS: Troponin I < 0.01 ng/ml (0.00-0.034)
[2024-09-27] MEDS: BACLOFEN 10MG TABLET 10 MG PO ×4 (08:26→20:15)
[2024-09-27] MEDS: AMLODIPINE 5MG TABLET 5 MG PO (08:26)
[2024-09-27] MEDS: DULOXETINE 30MG CAPSULE.DR 60 MG PO ×2 (08:26→20:15)
[2024-09-27] MEDS: lamoTRIgine 100MG TABLET 100 MG PO ×2 (08:26→20:15)
[2024-09-27] MEDS: BUSPIRONE HCL 5 MG TABLET PO ×3 (08:26→20:15)
[2024-09-27] MEDS: SENNOSIDES 8.6MG/DOCUSATE 50MG TABLET 1 TAB PO (08:26)
[2024-09-27] MEDS: LEVOTHYROXINE 88MCG (0.088MG) TAB 88 MCG PO (08:27)
[2024-09-27] MEDS: ASCORBIC ACID 500MG TAB 1000 MG PO (08:27)
[2024-09-27] MEDS: CEFTRIAXONE SODIUM 1 GM in 0.9 % SODIUM CHLORIDE 50 ML IV (08:30)
[2024-09-27] MEDS: POLYETHYLENE GLYCOL 3350 17 GM PACKET PO (12:22)
[2024-09-27] MEDS: BISACODYL 5MG TABLET 10 MG PO (12:53)
[2024-09-27] MEDS: ACETAMINOPHEN 325MG TAB 650 MG PO (16:03)
--- NOTE | 2024-09-27 16:49 | PC.NURSE ---
AOX4, HAS SPENT MOST OF THE DAY IN BED. PT STATES THAT SHE IN UNABLE TO AMBULATE EFFECTIVELY SINCE BACK SURGERY. SHE IS NOT REQUIRING O2 SUPPORT. C/O ABD PAIN ONCE THIS SHIFT AND WAS MEDICATED WITH PRN TORADOL. SOAP SUDS ENEMA ADMIN TODAY BUT STILL NO BM
[2024-09-27] MEDS: DANTROLENE 50 MG 100 EACH PO ×2 (17:43→20:15)
--- NOTE | 2024-09-27 18:29 | EXP.EVENT.NO ---
Patient is a 68-year-old female with a complex abdominal history presented with abdominal pain, no stool output for a week and was admitted for suspected opioid-induced constipation. #Suspected opioid-induced constipation ? Patient states she has not had a bowel movement in a week, and also endorses no flatus for the past 4 days. Does have bowel sounds. ? Complex abdominal history with cholecystectomy, appendectomy, colectomy with anastomosis, and hysterectomy. ? Has Dilaudid pain pump for low back degenerative disc disease, has been wheelchair-bound working with home health. ? Reportedly uses Linzess at home, which worsened her abdominal pain yesterday. ? CT abdomen/pelvis does have some stool burden but no evidence of obstruction. Also shows rectal edema without obstruction. ? Continue serial MiraLAX, bisacodyl, enemas. Has not had a bowel movement today. ? GI consulted, pending further recommendations.
[2024-09-27] MEDS: 0.9 % SODIUM CHLORIDE 1000ML 1,000 ML 75 ML IV (20:13)
[2024-09-27] MEDS: QUETIAPINE 100MG TABLET 300 MG PO (20:14)
[2024-09-27] MEDS: PANTOPRAZOLE 40MG TABLET 40 MG PO (20:14)
[2024-09-28 04:00] VITALS: BP 133/72; PULSE 68; RESP 16; TEMP 36.5; O2SAT 95; BMI 31.4
--- NOTE | 2024-09-28 04:41 | PC.NURSE ---
Patient is alert and oriented x4. She has gotten up to the chair a couple times this shift, stating that it helps with her back for comfort + relieves some abdominal pain. She was observed to have both wakeful periods and resting periods (eyes closed, respirations even/unlabored on room air) this shift. Her personal gait belt continues to be utilized to aid in transfers; patient's gait remains quite unsteady. Staff has assisted her to the bathroom using the wheelchair + gait belt to hoist her upwards and to steady her with pivoting. Patient has also utilized a purewick that has been changed regularly this shift; urine has been emptied and documented accordingly. She has been able to have multiple bowel movements this shift; her bowel movement consistency has been very watery with tiny bits of stool. Patient continues to complain of abdominal pain (medicated with Toradol per MAR) but expressed a relief of pressure after having bowel movements. Upon palpation of her abdomen, her right upper quadrant remains more firm compared with the other abdominal quadrants; bowel sounds were also more active in the right upper quadrant. Auscultation of her heart and lungs were within normal findings. Redness was noted on the patient's inner thighs; she stated that she has had it appear before. Cream was provided. Scheduled medications were administered as appropriately per OCT (patient's home medication is locked in [facility]). Normal saline is infusing at 75 mL/hr. Clear liquid diet in place. At this time, the patient is resting without any further complaints. Call light within reach.
[2024-09-28] MEDS: LEVOTHYROXINE 88MCG (0.088MG) TAB 88 MCG PO (06:16)
[2024-09-28 06:59] LABS: Basophils % 0.9 % (0.1-2.0); Eosinophils # 0.1 K/mm3 (0.0-0.4); Eosinophils % 1.9 % (0.1-12.0); Hematocrit 34.9 % (37.0-47.0); Hemoglobin 11.1 g/dL (12.2-16.2); Lymphocytes % 32.2 % (10-50); Mean Corpuscular HGB Conc 31.8 g/dL (31.8-35.4); Mean Corpuscular Hemoglobin 31.1 pg (27.0-31.2); Mean Corpuscular Volume 97.8 fl (81-99); Mean Platelet Volume 11.2 fl (7.4-10.4); Monocytes # 0.4 K/mm3 (0.1-1.0); Monocytes % 11.8 % (1.7-9.3); Neutrophils # 1.7 K/mm3 (1.8-7.8); Neutrophils % 53.2 % (37.0-80.0); Platelet Count 110 K/mm3 (142-424); Red Blood Count 3.57 M/mm3 (4.20-5.40); Red Cell Distribution Width 14.6 % (11.5-17.5); White Blood Count 3.2 K/mm3 (4.8-10.8)
[2024-09-28 07:01] LABS: Chloride 111 mmol/L (98-107); Potassium 3.6 mmoL/L (3.5-5.1); Sodium 140 mmol/L (136-145)
[2024-09-28 07:04] LABS: Anion Gap 8.6 mEq/L (5-15); Blood Urea Nitrogen 10 mg/dl (7-17); Calcium 7.7 mg/dl (8.4-10.2); Carbon Dioxide 24 mmol/L (22.0-30.0); Creatinine Clearance Estimated 75 mL/min (50-200); Estimated Glomerular Filt Rate 83 ml/min (>60); GFR (African American) 100 ML/MIN (>60); Glucose 77 mg/dl (74-100)
[2024-09-28 07:56] VITALS: BP 145/70; PULSE 66; RESP 17; TEMP 36.7; O2SAT 96
--- NOTE | 2024-09-28 09:25 | SW/DCPLANNER ---
Addendum entered by Crystal Loo 09/28/24 11:18: I will update Pat keith/ [facility] that patient will return home today. Updated patient information will be faxed. Original Note: This patient is currently established w/ [facility]. I will continue to update Pat keith/ [facility] until patient is medically stable for discharge. Discharge date is unknown at this time.
[2024-09-28] MEDS: DULOXETINE 30MG CAPSULE.DR 60 MG PO (09:44)
[2024-09-28] MEDS: BUSPIRONE HCL 5 MG TABLET PO ×2 (09:44→12:10)
[2024-09-28] MEDS: BACLOFEN 10MG TABLET 10 MG PO ×2 (09:44→12:10)
[2024-09-28] MEDS: ASCORBIC ACID 500MG TAB 1000 MG PO (09:45)
[2024-09-28] MEDS: SENNOSIDES 8.6MG/DOCUSATE 50MG TABLET 1 TAB PO (09:45)
[2024-09-28] MEDS: CEFTRIAXONE SODIUM 1 GM in 0.9 % SODIUM CHLORIDE 50 ML IV (09:45)
[2024-09-28] MEDS: lamoTRIgine 100MG TABLET 100 MG PO (09:45)
[2024-09-28] MEDS: AMLODIPINE 5MG TABLET 5 MG PO (09:45)
[2024-09-28] MEDS: DANTROLENE 50 MG 100 EACH PO ×2 (09:46→12:10)
[2024-09-28] MEDS: POLYETHYLENE GLYCOL 3350 17 GM PACKET PO (09:46)
--- NOTE | 2024-09-28 10:15 | HMH.PTEV ---
Physical Therapy Evaluation Rehab PT IP Evaluation Start: 09/27/24 10:37 Freq: ONCE Status: Active Protocol: Document 09/28/24 10:07 ADALBERTO (Rec: 09/28/24 10:15 ADALBERTO [id number]) Subjective/History History History Per h&p, The patient is a 68- year-old female with a significant past medical history of degenerative disc disease (requiring chronic opioid pain management), obesity, hypothyroidism, hyperlipidemia, and multiple prior abdominal surgeries ( cholecystectomy, appendectomy, hysterectomy, and colectomy), who presents to the Emergency Department complaining of generalized abdominal pain, bloating, and constipation for approximately one week. She reports feeling ?very bloated? and states that although she passed a small amount of stool yesterday, she has not had a satisfactory bowel movement in about a week. She notes some ongoing ability to pass gas, though less than usual, and endorses nausea without vomiting. She denies fever, chills, or urinary symptoms. Given her presentation, there was concern for possible bowel obstruction, fecal impaction, colitis, diverticulitis, or pancreatitis, particularly in the context of her extensive surgical history. On examination, she appears in no acute distress, with reassuring vital signs on cardiac telemetry. Abdominal exam is notable for generalized tenderness and mild distension but no rebound or guarding. She has been afebrile and without vomiting. Initial workup included a CBC showing mild leukopenia but no significant left shift, comprehensive metabolic panel (CMP) with reassuring electrolytes and no acute kidney injury, a mild isolated elevation in AST, and a lipase level that was not significantly elevated (117). Urinalysis demonstrated findings concerning for infection (trace leukocyte esterase, positive nitrites, and some bacteria), prompting cultures and empiric intravenous Rocephin (noting a non?true allergy to cephalexin). A CT scan of the abdomen/pelvis with IV contrast was performed and independently reviewed at bedside, revealing significant stool burden without clear evidence of mechanical obstruction; final radiology read is pending. The patient received IV fluids, IV Toradol , acetaminophen, and Zofran for symptomatic relief. At this time, she remains hemodynamically stable with no signs of an acute abdomen, and further management will be guided by radiology?s final CT interpretation and microbiological culture results. Subjective Subjective Pt reports that she lives at home with her . arrived during evaluation and helped to provide subjective history. Pt reports that she uses a wheelchair for all mobility and is able to wheel herself throughout her home. Reports that she has a wheelchair ramp to enter her house. She reports that she has not walked since she had a back surgery in March. She reports that she uses a gait belt and her helps her with all transfers. The pt and her report that she presents at her current baseline and she has been making significant improvements with home health therapy. New diagnosis of cancer in past 12 No months? Rehab PT IP Eval Objective Appearance Patient Behavior Appropriate,Patient Baseline Patient Orientation Person,Place Speech Pattern Clear Ambulation Patient Able to Ambulate No Balance Ability to Arise Able, uses arms to help Sitting Balance Steady, safe Standing Balance Unsteady Dynamic Sitting Balance Ability Fair Dynamic Standing Balance Ability Zero Transfers Chair Transfer Ability Maximum x 2 (75% assist) Rehab PT IP prob,goals,plan Problems Date of Evaluation: 09/28/24 PT IP Problems Bed Mobility,Transfers,Gait, Balance,Self care,Safety Rehab Potential Rehab Potential Poor Equipment Needs Assistive Devices None / NA Plan PT Intervention Plan Bed Mobility,Transfers,Gait, Balance,Self care,Safety, Therapeutic Exercise PT Plan Frequency BID Duration LOS Discharge Goals Bed Transfer Ability Moderate x 1 (50% assist) Sit to Stand Chair Transfer Ability Moderate x 1 (50% assist) Ambulation Assistive Device Rolling Walker Ambulation Distance (feet) 5 Discharge Plan PT Discharge Plan PT is recommending placement for further therapy upon discharge. Upon standing, the pt presents with jerky and choreaic like movements. The pt currently presents as a significant fall risk. Skilled PT is indicated for this pt currently. Eval Complexity Eval Charge Codes 64323 - High Complexity PHYSICIAN CERTIFICATION: I certify the specified therapy services for Sandie Frank are required, authorized, and reviewed every 30 days.
--- NOTE | 2024-09-28 10:21 | HMH.OTEV ---
OT Inpatient Evaluation Rehab OT IP Evaluation Start: 09/27/24 10:37 Freq: ONCE Status: Active Protocol: Document 09/28/24 10:06 SHERIDAN (Rec: 09/28/24 10:21 SHERIDAN [id number]) Rehab OT IP Assessment Subjective History The patient is a 68-year-old female with a significant past medical history of degenerative disc disease ( requiring chronic opioid pain management), obesity, hypothyroidism, hyperlipidemia , and multiple prior abdominal surgeries (cholecystectomy, appendectomy, hysterectomy, and colectomy), who presents to the Emergency Department complaining of generalized abdominal pain, bloating, and constipation for approximately one week. She reports feeling ?very bloated? and states that although she passed a small amount of stool yesterday, she has not had a satisfactory bowel movement in about a week. She notes some ongoing ability to pass gas, though less than usual, and endorses nausea without vomiting. She denies fever, chills, or urinary symptoms. Given her presentation, there was concern for possible bowel obstruction, fecal impaction, colitis, diverticulitis, or pancreatitis, particularly in the context of her extensive surgical history. On examination, she appears in no acute distress, with reassuring vital signs on cardiac telemetry. Abdominal exam is notable for generalized tenderness and mild distension but no rebound or guarding. She has been afebrile and without vomiting. Initial workup included a CBC showing mild leukopenia but no significant left shift, comprehensive metabolic panel (CMP) with reassuring electrolytes and no acute kidney injury, a mild isolated elevation in AST, and a lipase level that was not significantly elevated (117). Urinalysis demonstrated findings concerning for infection (trace leukocyte esterase, positive nitrites, and some bacteria), prompting cultures and empiric intravenous Rocephin (noting a non?true allergy to cephalexin). A CT scan of the abdomen/pelvis with IV contrast was performed and independently reviewed at bedside, revealing significant stool burden without clear evidence of mechanical obstruction; final radiology read is pending. The patient received IV fluids, IV Toradol , acetaminophen, and Zofran for symptomatic relief. At this time, she remains hemodynamically stable with no signs of an acute abdomen, and further management will be guided by radiology?s final CT interpretation and microbiological culture results. Patient lives in 1 story home with with ramp to enter. provides care for patient with HH services. Patient requires 1 assist with all ADLs and fx'l mobility due to unsteadiness on B LE. Subjective I feel weak. Instructed Patient on safety awareness to complete STS with hand held assistance with Mod A x2. During static standing duration, Patient exhibit involuntary movements of swaying back and forward with inability to control movement. Patient required Max A X2 to remain standing safely. reported that this is patient's baseline. Left Patient sitting upright in chair with needs met. Objective Patient Orientation Person,Place Right Upper Extremity Gross ROM WFL Left Upper Extremity Gross ROM WFL Transfer Training Sit/Stand Transfer Assist Level Moderate x 2 (50% assist) Rehab OT IP prob,goals,plan Problems Date of Evaluation: 09/28/24 OT IP Problems Bed Mobility,Transfers,Balance ,Self care,Safety Rehab Potential Rehab Potential Good Equipment Needs Assistive Devices Rolling / Wheeled Walker Plan OT intervention Plan Bed Mobility,Transfers,Balance ,Self care,Safety,Therapeutic Exercise OT Plan Frequency Daily Duration LOS Discharge Goals Bed Mobility Ability Assistance x1 Sit to Stand Chair Transfer Ability Minimal x 1 (25% assist) Chair Transfer Ability Minimal x 1 (25% assist) Chair Transfer Technique Sit to/from Ambulatory Chair Transfer Assistive Devices Rolling Walker Discharge Plan OT Discharge Plan Recommend patient to return home 24/7 care with and HH services. If family is unable to provide 24/7 care, recommend patient for rehab at this time. Patient will continue skilled OT Services here at [facility] medically d/c. Eval Complexity Eval Charge Codes 70737 - Low Complexity PHYSICIAN CERTIFICATION: I certify the specified therapy services for Sandie Frank are required, authorized, and reviewed every 30 days.
--- NOTE | 2024-09-28 10:49 | EXP.GE.CONS ---
History of Present Illness *Admission Date: 09/27/24 *History of present illness: The patient is a 68-year-old female with a significant past medical history of degenerative disc disease (requiring chronic opioid pain management), obesity, hypothyroidism, hyperlipidemia, and multiple prior abdominal surgeries (cholecystectomy, appendectomy, hysterectomy, and colectomy), who presents to the Emergency Department complaining of generalized abdominal pain, bloating, and constipation for approximately one week. She reports feeling ?very bloated? and states that although she passed a small amount of stool yesterday, she has not had a satisfactory bowel movement in about a week. She notes some ongoing ability to pass gas, though less than usual, and endorses nausea without vomiting. She denies fever, chills, or urinary symptoms. Given her presentation, there was concern for possible bowel obstruction, fecal impaction, colitis, diverticulitis, or pancreatitis, particularly in the context of her extensive surgical history. On examination, she appears in no acute distress, with reassuring vital signs on cardiac telemetry. Abdominal exam is notable for generalized tenderness and mild distension but no rebound or guarding. She has been afebrile and without vomiting. Initial workup included a CBC showing mild leukopenia but no significant left shift, comprehensive metabolic panel (CMP) with reassuring electrolytes and no acute kidney injury, a mild isolated elevation in AST, and a lipase level that was not significantly elevated (117). Urinalysis demonstrated findings concerning for infection (trace leukocyte esterase, positive nitrites, and some bacteria), prompting cultures and empiric intravenous Rocephin (noting a non?true allergy to cephalexin). A CT scan of the abdomen/pelvis with IV contrast was performed and independently reviewed at bedside, revealing significant stool burden without clear evidence of mechanical obstruction; final radiology read is pending. The patient received IV fluids, IV Toradol, acetaminophen, and Zofran for symptomatic relief. At this time, she remains hemodynamically stable with no signs of an acute abdomen, and further management will be guided by radiology?s final CT interpretation and microbiological culture results. Per admission This is a 68-year-old female who has a long history of chronic constipation. She is status post partial colectomy about 20 years ago at [place] with Dr. Rutledge. 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 The patient's last colonoscopy was with Dr. Rutledge she thinks at least 3 to [address] today, they note a previous rectosigmoid anastomosis, no signs of small bowel obstruction. She does have good bowel sounds and did produce small amount of stool after soapsuds enema yesterday. However, she has had multiple abdominal surgeries over the years including appendectomy and cholecystectomy and a partial colectomy 20 years ago. The patient and her think that they took much more of her colon out during that procedure. The patient has tried multiple medications over the years to help her bowels move. She goes through periods of extensive constipation with abdominal pain and bloating and then will get improvement. She was previously on Linzess but never took it every day and she will get abdominal cramping when she did take it so she has not been on it for a while. She reports using Dulcolax as needed but is only been taking it about once a week. She stopped taking MiraLAX that was prescribed weeks ago. The patient reports she has had about 3 to 6 weeks of increasingly worse constipation, incomplete evacuation, bloating, flatulence, and abdominal discomfort. She was having a daily bowel movement but small stools and incomplete evacuation. She is tender to palpation throughout her abdomen and quite distended with gas bloat on exam. She was given a soapsuds enema as an inpatient yesterday and did produce a small amount of stool. She feels like she got some improvement of her abdominal bloating but not resolution. She has had a lot of gas production. No melena hematochezia or mucus in her stool. She does use opioids for pain and has a pain pump. She does have some significant immobility and requires gait assistance to get up and down to the bathroom. [facility] Disclaimer: The information contained in this section may have been updated after the patient was seen, as this information can be updated by other users. Medical History Hot flashes Abscess of vulva Retinal detachment Ileus, unspecified History of back pain History of back pain Surgical History History of lumpectomy History of hip replacement History of right shoulder replacement History of surgery on left wrist History of foot surgery History of cataract surgery History of colectomy History of cholecystectomy History of appendectomy History of hysterectomy History of lumbar surgery Hx of cervical spine surgery Family History Mother Cancer Diabetes Sister Diabetes Social History (Updated 09/27/24 @ 00:58 by Lindsay Medina RN) Smoking Status: Never smoker second hand exposure: No alcohol intake: never substance use type: denies use current occupational status: retired Travel in the last 8 weeks: None household members: spouse housing: house education level: high school current occupation: retired from [employer] current occupational exposures/hazards: No caffeine: Yes Have you lived/traveled outside [place] in past 30 days?: No Contact w/someone who lives/traveled outside US past 30 days?: No Exposure to someone with infectious disease in past 14 days?: No Do you have a fever (greater than 100.4 F or 38 C)?: No Have you tested positive for COVID-19: No Exposed to someone with COVID-19 in past 14 days?: No Do you have a sore throat?: No Do you have a cough?: No Do you have any weakness?: No Do you have any diarrhea?: No Are you experiencing any unusual bleeding?: No Do you have any muscle aches/pain?: No Do you have any abdominal pain?: Yes Are you experiencing loss of taste or smell?: No Review of Systems Review of Systems Review of systems:: pertinent systems reviewed and negative unless documented below Constitutional Constitutional: Reports system reviewed and no additional complaints, except as documented and Reports weakness Eyes Eyes: Reports system reviewed and no additional complaints, except as documented ENT Ears, Nose, Mouth, and Throat: Reports system reviewed and no additional complaints, except as documented *Cardiovascular Cardiovascular: Reports system reviewed and no additional complaints, except as documented *Respiratory Respiratory: Reports system reviewed and no additional complaints, except as documented *Gastrointestinal Gastrointestinal: Reports abdominal pain (Generalized), Reports belching, Reports bloating, Reports constipation, Reports cramping and Reports excessive flatus *Genitourinary Genitourinary: Reports system reviewed and no additional complaints, except as documented *Musculoskeletal Musculoskeletal: Reports abnormal gait (Requires assistance) and Reports muscle weakness *Neurologic Neurologic: Reports abnormal gait (Requires assistance) and Reports weakness Meds Home Medications and Allergies Home Medications ?Medication ?Instructions ?Recorded ?Confirmed ?Type geriatric rmsbtkwn-xeno-guts 1 each PO DAILY Diet supplement 10/14/19 09/27/24 History lamotrigine 100 mg tablet 100 mg PO BID 10/14/19 09/27/24 History montelukast 10 mg tablet 10 mg PO HS 10/14/19 09/27/24 History duloxetine 60 mg capsule,delayed 60 mg PO BID 09/25/22 09/27/24 History release (Cymbalta) hydrocortisone 5 mg tablet 5 mg PO BID 09/25/22 09/27/24 History levothyroxine 88 mcg tablet 88 mcg PO DAILY 09/25/22 09/27/24 History rosuvastatin 20 mg tablet (Crestor) 20 mg PO HS 09/25/22 09/27/24 History ubrogepant 100 mg tablet (Ubrelvy) 100 mg PO DAILYP PRN migraine 09/25/22 09/27/24 History headaches donepezil 23 mg tablet (Aricept) 23 mg PO DAILY 03/29/23 09/27/24 History quetiapine 300 mg tablet 300 mg PO HS 03/29/23 09/27/24 History guaifenesin 600 mg tablet, 600 - 1,200 mg (1 - 2 x 600 mg) PO 02/06/24 09/27/24 Rx extended release 12 hr (Mucinex) BIDP PRN Congestion #30 tabs albuterol sulfate 90 mcg/actuation 2 puff inhalation Q6H PRN 09/27/24 09/27/24 History aerosol inhaler Shortness Of Breath amlodipine 5 mg tablet 5 mg PO DAILY 09/27/24 09/27/24 History ascorbic acid (vitamin C) 1,000 mg 1,000 mg PO DAILY 09/27/24 09/27/24 History tablet (Vitamin C) baclofen 10 mg tablet 10 mg PO QID 09/27/24 09/27/24 History buspirone 5 mg tablet 5 mg PO TID 09/27/24 09/27/24 History dantrolene 50 mg capsule 100 mg PO QID 09/27/24 09/27/24 History fluticasone furoate 100 1 inh inhalation DAILY 09/27/24 09/27/24 History mcg-vilanterol 25 mcg/dose inhalation powder (Breo Ellipta) galcanezumab-gnlm 120 mg/mL 120 mg SQ MONTHLY 09/27/24 09/27/24 History subcutaneous pen injector (Emgality Pen) memantine 10 mg tablet 10 mg PO BID 09/27/24 09/27/24 History pantoprazole 40 mg tablet,delayed 40 mg PO HS 09/27/24 09/27/24 History release New Prescriptions to Start Prescriptions: Allergies Allergy/AdvReac Type Severity Reaction Status Date / Time cephalexin Allergy Intermediate BLISTERS Verified 11/26/23 08:42 IN MOUTH AND THROAT clindamycin Allergy Intermediate Blister Verified 11/26/23 08:42 erythromycin base Allergy Intermediate BLISTERS Verified 11/26/23 08:42 IN MOUTH AND THROAT meropenem Allergy Unknown Verified 11/26/23 08:42 azithromycin Allergy Rash Verified 02/06/24 11:54 levofloxacin (From Levaquin) Allergy Verified 11/26/23 08:42 nirmatrelvir (From Paxlovid) Allergy Verified 11/26/23 08:42 ritonavir (From Paxlovid) Allergy Verified 11/26/23 08:42 pregabalin (From Lyrica) AdvReac Mild Hallucinati Verified 11/26/23 08:42 ng codeine AdvReac Unknown Verified 11/26/23 08:42 Exam (Inpt) Vital signs and Labs for Last 24 Hours: Temp Pulse Resp BP Pulse Ox O2 Del Method 98.1 F 66 17 145/70 H 96 Room Air 09/28/24 07:56 09/28/24 07:56 09/28/24 07:56 09/28/24 07:56 09/28/24 07:56 09/28/24 09:00 Laboratory Results - last 24 hr 09/26/24 21:58: Urine Color Yellow, Urine Appearance Clear, Urine pH 6.5, Ur Specific [place] 1.020, Urine Protein Negative, Urine Glucose (UA) Negative, Urine Ketones Negative, Urine Blood Trace-i, Urine Nitrate Positive A, Urine Bilirubin Negative, Urine Urobilinogen 0.2, Ur Leukocyte Esterase Trace, Urine RBC 3-5, Urine WBC 3-5, Ur Squamous Epith Cells Occasional, Triple Phos Crystals 2+, Urine Bacteria 1+ 09/28/24 06:17: WBC 3.2 L D, RBC 3.57 L, Hgb 11.1 L, Hct 34.9 L, MCV 97.8, MCH 31.1, MCHC 31.8, RDW 14.6, Plt Count 110 L, MPV 11.2 H, Neut % (Auto) 53.2, Lymph % (Auto) 32.2, [place] % (Auto) 11.8 H, Eos % (Auto) 1.9, Baso % (Auto) 0.9, Neut # (Auto) 1.7 L, Lymph # (Auto) 1.0, [place] # (Auto) 0.4, Eos # (Auto) 0.1, Baso # (Auto) 0.0, Sodium 140, Potassium 3.6, Chloride 111 H, Carbon Dioxide 24, Anion Gap 8.6, BUN 10, Creatinine 0.70, Estimated Creat Clear 75, Estimated GFR 83, Est GFR ( Amer) 100, Glucose 77, Calcium 7.7 L I & O for Labs for Last 24 Hours: Intake & Output 09/25/24 09/26/24 09/27/24 09/28/24 11:59 11:59 11:59 11:59 Intake Total 0 1661 Output Total 800 700 Balance -800 961 Weight 90.537 kg 90.809 kg Microbiology Reports for the Last 24 Hours: Microbiology 09/26/24 21:58 Urine,Clean Catch Urine Culture - Preliminary Gram Negative Rods 09/27/24 00:17 Blood Blood Culture - Preliminary NO GROWTH AFTER 24 HOURS 09/27/24 00:00 Blood Blood Culture - Preliminary NO GROWTH AFTER 24 HOURS Constitutional: no acute distress and cooperative Head: Present normocephalic and atraumatic Neck: Present normal inspection Respiratory: Present CTA bilaterally Cardiac: Present Reg Rate and Rhythm GI: Present distention (Significant distention with gas bloat), tenderness (Generally tender throughout abdomen) and normal bowel sounds Skin: Present intact Results Labs 09/28/24 06:17 09/28/24 06:17 Labs: Laboratory Results - last 24 hr 09/26/24 21:58: Urine Color Yellow, Urine Appearance Clear, Urine pH 6.5, Ur Specific [place] 1.020, Urine Protein Negative, Urine Glucose (UA) Negative, Urine Ketones Negative, Urine Blood Trace-i, Urine Nitrate Positive A, Urine Bilirubin Negative, Urine Urobilinogen 0.2, Ur Leukocyte Esterase Trace, Urine RBC 3-5, Urine WBC 3-5, Ur Squamous Epith Cells Occasional, Triple Phos Crystals 2+, Urine Bacteria 1+ 09/28/24 06:17: WBC 3.2 L D, RBC 3.57 L, Hgb 11.1 L, Hct 34.9 L, MCV 97.8, MCH 31.1, MCHC 31.8, RDW 14.6, Plt Count 110 L, MPV 11.2 H, Neut % (Auto) 53.2, Lymph % (Auto) 32.2, [place] % (Auto) 11.8 H, Eos % (Auto) 1.9, Baso % (Auto) 0.9, Neut # (Auto) 1.7 L, Lymph # (Auto) 1.0, [place] # (Auto) 0.4, Eos # (Auto) 0.1, Baso # (Auto) 0.0, Sodium 140, Potassium 3.6, Chloride 111 H, Carbon Dioxide 24, Anion Gap 8.6, BUN 10, Creatinine 0.70, Estimated Creat Clear 75, Estimated GFR 83, Est GFR ( Amer) 100, Glucose 77, Calcium 7.7 L Assessment and Plan *Assessment and plan (1) Chronic constipation: Status: Acute Category: Medical Code(s): K59.09 - Other constipation (2) Generalized abdominal pain: Status: Acute Category: Medical Code(s): R10.84 - Generalized abdominal pain (3) Bloating: Status: Acute Category: Medical Code(s): R14.0 - Abdominal distension (gaseous) (4) Flatulence: Status: Acute Category: Medical Code(s): R14.3 - Flatulence Plan 1. Chronic constipation/abdominal pain/bloating/flatulence Symptoms have been getting progressively worse over the past 3 to 6 weeks. Patient stopped taking her MiraLAX and her Linzess and is only using Dulcolax about once a week. She has a lot of excessive gas during this period of time also. She stopped having bowel movements and symptoms just got worse. She has good bowel sounds but significant distention with gas bloat and tenderness throughout her abdomen with a history of multiple abdominal surgeries. No significant findings on CT scan. No signs of SBO. After soapsuds enema yesterday, she has produced a small amount of stool this morning. I recommend we start her on MiraLAX and fiber every day. Repeat enema with the mineral oil enema today. If she has improvement with her abdominal discomfort by moving her bowels and expelling some gas, I am happy to see her as an outpatient. I am going to request records from Dr. Rutledge's office.
[2024-09-28] MEDS: MINERAL OIL ENEMA 133ML 133 ML RC (12:16)
--- NOTE | 2024-09-28 16:09 | P.DS_ITS ---
General Admission date:: 09/27/24 HPI HPI HPI: The patient is a 68-year-old female with a significant past medical history of degenerative disc disease (requiring chronic opioid pain management), obesity, hypothyroidism, hyperlipidemia, and multiple prior abdominal surgeries (cholecystectomy, appendectomy, hysterectomy, and colectomy), who presents to the Emergency Department complaining of generalized abdominal pain, bloating, and constipation for approximately one week. She reports feeling ?very bloated? and states that although she passed a small amount of stool yesterday, she has not had a satisfactory bowel movement in about a week. She notes some ongoing ability to pass gas, though less than usual, and endorses nausea without vomiting. She denies fever, chills, or urinary symptoms. Given her presentation, there was concern for possible bowel obstruction, fecal impaction, colitis, diverticulitis, or pancreatitis, particularly in the context of her extensive surgical history. On examination, she appears in no acute di stress, with reassuring vital signs on cardiac telemetry. Abdominal exam is notable for generalized tenderness and mild distension but no rebound or guarding. She has been afebrile and without vomiting. Initial workup included a CBC showing mild leukopenia but no significant left shift, comprehensive metabolic panel (CMP) with reassuring electrolytes and no acute kidney injury, a mild isolated elevation in AST, and a lipase level that was not significantly elevated (117). Urinalysis demonstrated findings concerning for infection (trace leukocyte esterase, positive nitrites, and some bacteria), prompting cultures and empiric intravenous Rocephin (noting a non?true allergy to cephalexin). A CT scan of the abdomen/pelvis with IV contrast was performed and independently reviewed at bedside, revealing significant stool burden without clear evidence of mechanical obstruction; final radiology read is pending. The patient received IV fluids, IV Toradol, acetaminophen, and Zofran for symptomatic relief. At this time, she remains hemodynamically stable with no signs of an acute abdomen, and further management will be guided by radiology?s final CT interpretation and microbiological culture results. Per admission This is a 68-year-old female who has a long history of chronic constipation. She is status post partial colectomy about 20 years ago at [place] with Dr. Bear. She reports what sounds like an aperistaltic colon. On CT they notes a previous rectosigmoid anastomosis. The patient and her think that they took much more of her colon out during that procedure. The patient has tried multiple medications over the years to help her bowels move. She goes through periods of extensive constipation with abdominal pain and bloating and then will get improvement. She was previously on Linzess but never took it every day and she will get abdominal cramping when she did take it so she has not been on it for a while. She reports using Dulcolax as needed but is only been taking it about once a week. She stopped taking MiraLAX that was prescribed weeks ago. The patient reports she has had about 3 to 6 weeks of increasingly worse constipation, incomplete evacuation, bloating and abdominal discomfort. She was having a daily bowel movement but small stools and incomplete evacuation. She is tender to palpation throughout her abdomen and quite distended with gas bloat on exam. She was given a soapsuds enema as an inpatient yesterday and did produce a small amount of stool. She feels like she got some improvement of her abdominal bloating but not resolution. She has had a lot of gas production. No melena hematochezia or mucus in her stool. She does use opioids for pain and has a pain pump. She does have some significant immobility and requires gait assistance to get up and down to the bathroom. Hospital Course Hospital Course Hospital Course: Patient is a 68-year-old female with a complex abdominal history presented with abdominal pain, no stool output for a week and was admitted for suspected opioid-induced constipation. #Suspected opioid-induced constipation #Degenerative disc disease #Chronic lumbar compression fracture ? On presentation patient stated she has not had a bowel movement in a week, and also endorses no flatus for the past 4 days. Did have bowel sounds. Endorses not drinking much water at baseline. ? Complex abdominal history with cholecystectomy, appendectomy, colectomy with anastomosis, and hysterectomy. ? Has Dilaudid pain pump for low back degenerative disc disease, has been wheelchair-bound working with home health. ? Reportedly uses Linzess at home, which worsened her abdominal pain yesterday. ? CT abdomen/pelvis does have some stool burden but no evidence of obstruction. Also shows rectal edema without obstruction. ? Clinically improved with serial enemas, MiraLAX, bisacodyl. Did have 2 small to moderate bowel movements. ? GI consulted, recommended daily MiraLAX and follow-up in the clinic. ? Advised to take MiraLAX twice a day until 1 bowel movement daily, stay hydrated with water, he can use prune juice as needed. #UTI ? Discharged with cefdinir, urine culture growing Proteus mirabilis. #COPD ? Continue Breo Ellipta. #Dementia ? Continue donepezil, memantine. #Hypothyroidism ? Continue home levothyroxine 88 mcg. #Mood disorder ? Continue home quetiapine, duloxetine. Exam Data for Last 24 hours Vital signs and Labs for Last 24 Hours: Temp Pulse Resp BP Pulse Ox O2 Del Method 98.1 F 66 17 145/70 H 96 Room Air 09/28/24 07:56 09/28/24 07:56 09/28/24 07:56 09/28/24 07:56 09/28/24 07:56 09/28/24 15:00 Laboratory Results - last 24 hr 09/26/24 21:58: Urine Color Yellow, Urine Appearance Clear, Urine pH 6.5, Ur Specific [place] 1.020, Urine Protein Negative, Urine Glucose (UA) Negative, Urine Ketones Negative, Urine Blood Trace-i, Urine Nitrate Positive A, Urine Bilirubin Negative, Urine Urobilinogen 0.2, Ur Leukocyte Esterase Trace, Urine RBC 3-5, Urine WBC 3-5, Ur Squamous Epith Cells Occasional, Triple Phos Crystals 2+, Urine Bacteria 1+ 09/28/24 06:17: WBC 3.2 L D, RBC 3.57 L, Hgb 11.1 L, Hct 34.9 L, MCV 97.8, MCH 31.1, MCHC 31.8, RDW 14.6, Plt Count 110 L, MPV 11.2 H, Neut % (Auto) 53.2, Lymph % (Auto) 32.2, [place] % (Auto) 11.8 H, Eos % (Auto) 1.9, Baso % (Auto) 0.9, Neut # (Auto) 1.7 L, Lymph # (Auto) 1.0, [place] # (Auto) 0.4, Eos # (Auto) 0.1, Baso # (Auto) 0.0, Sodium 140, Potassium 3.6, Chloride 111 H, Carbon Dioxide 24, Anion Gap 8.6, BUN 10, Creatinine 0.70, Estimated Creat Clear 75, Estimated GFR 83, Est GFR ( Amer) 100, Glucose 77, Calcium 7.7 L I & O for Last 24 hours: Intake & Output 09/25/24 09/26/24 09/27/24 09/28/24 23:59 23:59 23:59 23:59 Intake Total 662 / 1001 1359 / 1359 Output Total 1500 / 1500 0 / 0 Balance -838 / -499 1359 / 1359 Weight 95.254 kg 90.537 kg 90.809 kg Microbiology Reports for the Last 24 Hours: Microbiology 09/26/24 21:58 Urine,Clean Catch Urine Culture - Preliminary Gram Negative Rods 09/27/24 00:17 Blood Blood Culture - Preliminary NO GROWTH AFTER 24 HOURS 09/27/24 00:00 Blood Blood Culture - Preliminary NO GROWTH AFTER 24 HOURS Constitutional Constitutional: no acute distress *Routine HEENT Exam Head: Present normocephalic Eye: Present EOMI and PERRL ENT: Present mucous membranes moist *Routine Neck Exam Neck: Present supple; Absent lymphadenopathy *Routine Respiratory Exam Respiratory: Present CTA bilaterally *Routine Cardiovascular Exam Cardiovascular: Present RRR *Routine Abdominal Exam Abdominal: Present soft and normoactive bowel sounds; Absent tenderness *Routine Extremities Exam Extremities: Absent cyanosis, clubbing or edema *Routine Skin Exam Skin: Present warm; Absent rash *Routine Neurological Exam Neurological: Present alert and oriented X3 Results Data Completed and Pending Labs on day of discharge: Labs from last 24 hours 09/28/24 09/26/24 06:17 21:58 WBC 3.2 L D RBC 3.57 L Hgb 11.1 L Hct 34.9 L MCV 97.8 MCH 31.1 MCHC 31.8 RDW 14.6 Plt Count 110 L MPV 11.2 H Neut % (Auto) 53.2 Lymph % (Auto) 32.2 [place] % (Auto) 11.8 H Eos % (Auto) 1.9 Baso % (Auto) 0.9 Neut # (Auto) 1.7 L Lymph # (Auto) 1.0 Col[place] # (Auto) 0.4 Eos # (Auto) 0.1 Baso # (Auto) 0.0 Sodium 140 Potassium 3.6 Chloride 111 H Carbon Dioxide 24 Anion Gap 8.6 BUN 10 Creatinine 0.70 Estimated Creat Clear 75 Estimated GFR 83 Est GFR ( Amer) 100 Glucose 77 Calcium 7.7 L Urine Color Yellow Urine Appearance Clear Urine pH 6.5 Ur Specific [place] 1.020 Urine Protein Negative Urine Glucose (UA) Negative Urine Ketones Negative Urine Blood Trace-i Urine Nitrate Positive A Urine Bilirubin Negative Urine Urobilinogen 0.2 Ur Leukocyte Esterase Trace Urine RBC 3-5 Urine WBC 3-5 Ur Squamous Epith Cells Occasional Triple Phos Crystals 2+ Urine Bacteria 1+ Preliminary micro results at discharge 09/26/24 21:58 Urine Culture - Preliminary Urine,Clean Catch Gram Negative Rods 09/27/24 00:17 Blood Culture - Preliminary Blood NO GROWTH AFTER 24 HOURS 09/27/24 00:00 Blood Culture - Preliminary Blood NO GROWTH AFTER 24 HOURS DS: Diagnosis Discharge Diagnosis (1) Acute UTI: Status: Acute Code(s): N39.0 - Urinary tract infection, site not specified (2) Abdominal pain: Status: Acute Code(s): R10.9 - Unspecified abdominal pain (3) Compression deformity of vertebra: Status: Acute Code(s): M43.9 - Deforming dorsopathy, unspecified (4) Hypertension: Status: Acute Code(s): I10 - Essential (primary) hypertension (5) Constipation: Status: Acute Code(s): K59.00 - Constipation, unspecified Meds Home Medications and Allergies Home Medications ?Medication ?Instructions ?Recorded ?Confirmed ?Type geriatric [id number] 1 each PO DAILY Diet supplement 10/14/19 09/27/24 History lamotrigine 100 mg tablet 100 mg PO BID 10/14/19 09/27/24 History montelukast 10 mg tablet 10 mg PO HS 10/14/19 09/27/24 History duloxetine 60 mg capsule,delayed 60 mg PO BID 09/25/22 09/27/24 History release (Cymbalta) hydrocortisone 5 mg tablet 5 mg PO BID 09/25/22 09/27/24 History levothyroxine 88 mcg tablet 88 mcg PO DAILY 09/25/22 09/27/24 History rosuvastatin 20 mg tablet (Crestor) 20 mg PO HS 09/25/22 09/27/24 History ubrogepant 100 mg tablet (Ubrelvy) 100 mg PO DAILYP PRN migraine 09/25/22 09/27/24 History headaches donepezil 23 mg tablet (Aricept) 23 mg PO DAILY 03/29/23 09/27/24 History quetiapine 300 mg tablet 300 mg PO HS 03/29/23 09/27/24 History guaifenesin 600 mg tablet, 600 - 1,200 mg (1 - 2 x 600 mg) PO 02/06/24 09/27/24 Rx extended release 12 hr (Mucinex) BIDP PRN Congestion #30 tabs albuterol sulfate 90 mcg/actuation 2 puff inhalation Q6H PRN 09/27/24 09/27/24 History aerosol inhaler Shortness Of Breath amlodipine 5 mg tablet 5 mg PO DAILY 09/27/24 09/27/24 History ascorbic acid (vitamin C) 1,000 mg 1,000 mg PO DAILY 09/27/24 09/27/24 History tablet (Vitamin C) baclofen 10 mg tablet 10 mg PO QID 09/27/24 09/27/24 History buspirone 5 mg tablet 5 mg PO TID 09/27/24 09/27/24 History dantrolene 50 mg capsule 100 mg PO QID 09/27/24 09/27/24 History fluticasone furoate 100 1 inh inhalation DAILY 09/27/24 09/27/24 History mcg-vilanterol 25 mcg/dose inhalation powder (Breo Ellipta) galcanezumab-gnlm 120 mg/mL 120 mg SQ MONTHLY 09/27/24 09/27/24 History subcutaneous pen injector (Emgality Pen) memantine 10 mg tablet 10 mg PO BID 09/27/24 09/27/24 History pantoprazole 40 mg tablet,delayed 40 mg PO HS 09/27/24 09/27/24 History release cefdinir 300 mg capsule 300 mg PO BID 5 days #10 caps 09/29/24 Rx New Prescriptions to Start Prescriptions: Ramone David Allergies Allergy/AdvReac Type Severity Reaction Status Date / Time cephalexin Allergy Intermediate BLISTERS Verified 11/26/23 08:42 IN MOUTH AND THROAT clindamycin Allergy Intermediate Blister Verified 11/26/23 08:42 erythromycin base Allergy Intermediate BLISTERS Verified 11/26/23 08:42 IN MOUTH AND THROAT meropenem Allergy Unknown Verified 11/26/23 08:42 azithromycin Allergy Rash Verified 02/06/24 11:54 levofloxacin (From Levaquin) Allergy Verified 11/26/23 08:42 nirmatrelvir (From Paxlovid) Allergy Verified 11/26/23 08:42 ritonavir (From Paxlovid) Allergy Verified 11/26/23 08:42 pregabalin (From Lyrica) AdvReac Mild Hallucinati Verified 11/26/23 08:42 ng codeine AdvReac Unknown Verified 11/26/23 08:42 Discharge Plan Disposition Patient Disposition: Home Health Service Condition: Fair Discharge Order Discharge Orders: Discharge Order (Routine); Ordered 09/28/24 Ordered By: Ramone Pruitt Follow up Plan Follow up with: Leigh Neville APRN [Nurse Practitioner] - 10/05/24 Nereyda Erwin APRN [Primary Care Provider] - Enter time for follow up (Please ca office for follow up appointment.) Prescriptions/Medication Reconciliation: New cefdinir 300 mg capsule 300 mg PO BID 5 Days Qty: 10 0RF Continued levothyroxine 88 mcg tablet 88 mcg PO DAILY hydrocortisone 5 mg tablet 5 mg PO BID Patient Comments: TAKE ONE TABLET BY MOUTH TWICE DAILY duloxetine [Cymbalta] 60 mg capsule,delayed release(DR/EC) 60 mg PO BID Patient Comments: TAKE 1 CAPSULE BY MOUTH TWICE DAILY rosuvastatin [Crestor] 20 mg tablet 20 mg PO HS Patient Comments: TAKE 1 TABLET BY MOUTH ONCE DAILY FOR 90 DAYS Ubrelvy 100 mg tablet 100 mg PO DAILYP PRN (Reason: migraine headaches) geriatric onrdgkmi-wxka-zmah 1 EACH tablet 1 each PO DAILY lamotrigine 100 MG tablet 100 mg PO BID montelukast 10 MG tablet 10 mg PO HS quetiapine 300 mg tablet 300 mg PO HS Patient Comments: TAKE 1 TABLET BY MOUTH ONCE DAILY AT NIGHT donepezil [Aricept] 23 mg tablet 23 mg PO DAILY Patient Comments: TAKE 1 TABLET BY MOUTH ONCE DAILY guaifenesin [Mucinex] 600 mg tablet extended release 12hr 600 - 1,200 mg PO BIDP PRN (Reason: Congestion) Qty: 30 0RF dantrolene 50 mg capsule 100 mg PO QID Patient Comments: TAKE 2 CAPSULES BY MOUTH 4 TIMES DAILY baclofen 10 mg tablet 10 mg PO QID buspirone 5 mg tablet 5 mg PO TID Patient Comments: TAKE 1 TABLET BY MOUTH THREE TIMES DAILY Emgality Pen 120 mg/mL pen injector 120 mg SQ MONTHLY amlodipine 5 mg tablet 5 mg PO DAILY Patient Comments: TAKE 1 TABLET BY MOUTH ONCE DAILY pantoprazole 40 mg tablet,delayed release (DR/EC) 40 mg PO HS Patient Comments: TAKE 1 TABLET BY MOUTH ONCE DAILY ascorbic acid (vitamin C) [Vitamin C] 1,000 mg Tablet 1,000 mg PO DAILY memantine 10 mg tablet 10 mg PO BID albuterol sulfate 90 mcg/actuation Hfa Aerosol Inhaler 2 puff INHALATION Q6H PRN (Reason: Shortness Of Breath) fluticasone furoate-vilanterol [Breo Ellipta] 100-25 mcg/dose blister with device 1 inh INHALATION DAILY Patient Comments: INHALE 1 PUFF ONCE DAILY Problem Reconciliation Problems Reviewed?: Yes Patient Discharge Instructions Patient Instructions: High-Fiber Diet, DI for Urinary Tract Infection (UTI), DI for Abdominal Pain-Adult Print Language: Azerbaijani Providers Primary Care Provider: Nereyda Erwin Admit Provider: Doug Husain Attending Provider: Doug Husain
--- NOTE | 2024-09-29 10:14 | SW/DCPLANNER ---
Addendum entered by Margi Gusman RN 09/29/24 11:01: Spoke with Dr. Pruitt and he is calling in antibiotic to [facility] pharmacy. Called back to speak with patient but she was working with home health. is aware of prescription. Original Note: Spoke with patient on the phone. Patient stated that she is doing very well. Patient stated that she wasnt aware of her upcoming appointments. Patient stated that she will call and make her upcoming appointments. Patient stated that she was wondering if she needed to an antibiotic where she was in here for a UTI. I asked the nurse and we are trying to get ahold of the DR and when i hear back i will let the patient know. Patient stated that she has no other concerns or questions at this time. Rigo Ruby
== END 2024-09-28 17:25 | disposition home health service (06) ==
LOC: ER 09-27 00:19 → 2ND 09-27 01:08
PROVIDERS: Nurse Practitioner Family; Admitting Provider Internal Medicine Adolescent Medicine; Emergency Provider Emergency Medicine; PCP Nurse Practitioner Family; Visit Provider Internal Medicine Adolescent Medicine
DX: K59.09 Other constipation (principal); N39.0 Urinary tract infection, site not specified; R14.0 Abdominal distension (gaseous); J44.9 Chronic obstructive pulmonary disease, unspecified; M43.9 Deforming dorsopathy, unspecified; I10 Essential (primary) hypertension; B96.4 Proteus (mirabilis) (morganii) as the cause of diseases classified elsewhere; E03.9 Hypothyroidism, unspecified; M51.360 Other intervertebral disc degeneration, lumbar region with discogenic back pain only; F39 Unspecified mood [affective] disorder; F03.90 Unspecified dementia, unspecified severity, without behavioral disturbance, psychotic disturbance, mood disturbance, and anxiety; Z88.1 Allergy status to other antibiotic agents; Z88.8 Allergy status to other drugs, medicaments and biological substances; Z88.5 Allergy status to narcotic agent; Z79.51 Long term (current) use of inhaled steroids; Z79.890 Hormone replacement therapy; Z79.899 Other long term (current) drug therapy; Z90.49 Acquired absence of other specified parts of digestive tract; Z90.79 Acquired absence of other genital organ(s); Z99.3 Dependence on wheelchair; Z79.891 Long term (current) use of opiate analgesic; Z74.1 Need for assistance with personal care; Z16.29 Resistance to other single specified antibiotic
CPT/HCPCS: 36415; 74177; 80048; 80053; 81001; 83605; 83690; 83735; 84484; 85025; 87040; 87086; 87088; 87186; 93005; 97110; 97163; 97165; 99285; G0378; J0131; J0696; J1171; J1885; J2405; J7030; J7120; Q9967

== ENCOUNTER 2024-11-09 08:07 | Outpatient (CLI) | payer MEDICARE, BC, SELFPAY ==
[2024-11-09 08:14] LABS: Microscopic, Urine URINE MICROSCOPIC (MICROSCOPIC)
[2024-11-09 08:45] LABS: Hematocrit 39.1 % (37.0-47.0); Hemoglobin 12.8 g/dL (12.2-16.2); Lymphocytes # 0.5 K/mm3 (0.7-4.5); Lymphocytes % 8.8 % (10-50); Mean Corpuscular HGB Conc 32.7 g/dL (31.8-35.4); Mean Corpuscular Hemoglobin 31.7 pg (27.0-31.2); Mean Corpuscular Volume 96.8 fl (81-99); Mean Platelet Volume 11.1 fl (7.4-10.4); Monocytes # 0.4 K/mm3 (0.1-1.0); Monocytes % 6.2 % (1.7-9.3); Neutrophils % 84.7 % (37.0-80.0); Platelet Count 167 K/mm3 (142-424); Red Blood Count 4.04 M/mm3 (4.20-5.40); Red Cell Distribution Width 14.7 % (11.5-17.5); White Blood Count 5.9 K/mm3 (4.8-10.8)
[2024-11-09 09:21] LABS: Appearance,Urine CLEAR (Clear); Bilirubin,Urine Negative (Negative); Blood, Urine Negative (Negative); Color,Urine YELLOW (Yellow); Glucose,Urine (UA) Negative (Negative); Ketones,Urine Negative (Negative); Leukocyte Esterase,Urine Negative (Negative); Nitrate,Urine Negative (Negative); Protein,Urine Negative (Negative); Specific Gravity, Urine 1.015 (1.005-1.030); Urobilinogen,Urine 0.2 EU/dl (0.2)
[2024-11-09 09:31] LABS: C-Reactive Protein < 0.3 mg/L (0-4)
[2024-11-09 09:47] LABS: Bacteria,Urine Trace /lpf
[2024-11-09 09:49] LABS: Mucus,Urine Trace /lpf; RBC,Urine Occasional #/hpf (0-3)
--- OUTSIDE RECORDS SUMMARY | 2024-11-10 21:45 | XMS_ITS | Clinical Summary ---
Author Organization [facility] , [facility] Address [address] [place] [address] Phone Care Team Providers Care Professional Bass Fisher Name Role Phone TERRELL PHIPPS, LEOPOLDO Unavailable [phone] HARRIETT PHIPPS, EFFIE Koenig Primary Care Provider [phone] Yareli PHIPPS, Brian Shelton Unavailable [phone] Reason for Visit and Chief Complaint [facility] Problems Includes: Problems addressed during this encounter and other active Problems All Visits Onset Date Resolved Date Provider Condition S tatus Joint Pain in Both Knees 11/07/2024 Missael Avalos PA-C Active Last Documented On 5 7:54AM ; [facility] Joint Pain in the Right Hip 06/08/2019 Evelia Newton MD Active Last Documented On 9 1:19PM ; [facility] Joint Pain, Localized in Both Shoulders 08/20/2017 Giancarlo Wood MD Active Last Documented On 8 3:17PM ; [facility] Joint Pain, Localized in the Shoulder 06/17/2017 Amy Jimenez MD Active Last Documented On 7 8:45AM ; [facility] Right Forearm Bone Pain 01/09/2017 Amy rene MD Active Last Documented On 7 12:44PM ; [facility] Carpal Tunnel Syndrome 03/23/2015 Brian boss MD Active Last Documented On 5 10:36AM ; [facility], [facility] Plan of Treatment Future Appointments Date Time Location Provi brittanie Follow Up 12/19/2024 9:00AM [facility] Missael Avalos PA-C Last Documented On 5 8:49AM ; [facility], [facility] Assessments Includes: Assessments from this encounter No Assessments Recorded Medical Equipment - Implanted Devices Includes: Current Devices No Medical Equipment Recorded Medications Includes: Medications discussed during this encounter and other current Medications Current Medications (continue as prescribed) QUEtiapine Fumarate 300 MG Oral Tablet 11/04/2024 Pr ovider: Diagnosis: Last Documented On 5 8:26AM By Kaylynn Philippe ; [facility] amLODIPine Besylate 5 MG Oral Tablet 11/04/2024 Prov ider: LEOPOLDO TEJADA MD Diagnosis: Last Documented On 5 8:26AM By Kaylynn Philippe ; [facility], [facility] Rosuvastatin Calcium 20 MG Oral Tablet 11/01/2024 Pr ovider: THOMPSON GOSS MD Diagnosis: Last Documented On 5 8:26AM By Kaylynn Philippe ; [facility] DULoxetine HCl 60 MG Oral Capsule Delayed Releas e Particles 10/28/2024 Provider: Diagnosis: Last Documented On 5 8:26AM By Kaylynn Philippe ; [facility] Donepezil HCl 23 MG Oral Tablet 10/25/2024 Provider: Esther Mathew PA-C Diagnosis: Last Documented On 5 8:26AM By Kaylynn Philippe ; [facility] Trulance 3 MG Oral Tablet 10/23/2024 Provider: YAKOV DIXON MD Diagnosis: Last Documented On 5 8:26AM By Kaylynn Philippe ; [facility] Memantine HCl 10 MG Oral Tablet 10/22/2024 Provider: Esther Mathew PA-C Diagnosis: Last Documented On 5 8:26AM By Kaylynn Philippe ; [facility] lamoTRIgine 100 MG Oral Tablet 10/22/2024 Provider: Esther Mathew PA-C Diagnosis: Last Documented On 5 8:26AM By Kaylynn Philippe ; [facility] Montelukast Sodium 10 MG Oral Tablet 10/18/2024 Prov ider: Diagnosis: Last Documented On 5 8:26AM By Kaylynn Philippe ; [facility], [facility] Nitrofurantoin Monohyd Macro 100 MG Oral Capsule 10/17/2024 Provider: Maggi zimmer APRN Diagnosis: Last Documented On 5 8:26AM By Kaylynn Philippe ; [facility], [facility] Levothyroxine Sodium 88 MCG Oral Tablet 10/14/2024 P rovider: LEOPOLDO TEJADA MD Diagnosis: Last Documented On 5 8:26AM By Kaylynn Philippe ; [facility] Dantrolene Sodium 50 MG Oral Capsule 10/13/2024 Prov ider: Suzan Sanchez MD Diagnosis: Last Documented On 5 8:26AM By Kaylynn Philippe ; [facility] Emgality 120 MG/ML Subcutane ous Solution Auto-injector 10/10/2024 Provider: Esther Mathew PA-C Diagnosis: Last Documented On 5 8:26AM By Kaylynn Philippe ; [facility] Pantoprazole Sodium 40 MG Or al Tablet Delayed Release 10/07/2024 Provider: LEOPOLDO TEJADA MD Diagnosis: Last Documented On 5 8:26AM By Kaylynn Philippe ; [facility] busPIRone HCl 5 MG Oral Tablet 10/04/2024 Provider: Suzan Sanchez MD Diagnosis: Last Documented On 5 8:26AM By Kaylynn Philippe ; [facility] Linzess 72 MCG Oral Capsule 10/03/2024 Provider: Maggi Crawford APRN Diagnosis: Last Documented On 5 8:26AM By Kaylynn Philippe ; [facility] Hydrocortisone 5 MG Oral Tablet 09/29/2024 Provider: LEOPOLDO TEJADA MD Diagnosis: Last Documented On 5 8:26AM By Kaylynn Philippe ; [facility] Cefdinir 300 MG Oral Capsule 09/29/2024 Provider: Diagnosis: Last Documented On 5 8:26AM By Kaylynn Philippe ; [facility] Medications Administered Includes: Administered Medications from this encounter No Administered Medications Recorded Results Includes: Results discussed during this encounter No Results Recorded For Specified Dates History of Present Illness Includes: History of Present Illness from this encounter No History of Present Illness Recorded Social History No Social History Recorded - Smoking Status Unknown Medical History Includes: Medical History addressed during this encounter No Medical History Recorded Family History Includes: Family History addressed during this encounter No Family History Recorded Review of Systems Includes: Review of Systems from this encounter No Review of Systems Recorded Mental Status Includes: Mental Status from this encounter No Mental Status Recorded Functional Status Includes: Functional Status from this encounter No Functional Status Recorded Physical Exam Includes: Physical Exam from this encounter No Physical Exam Recorded Allergies Includes: Active Allergies Substance Type Reaction Onset Date Resolved Date Statu s OTHER Allergy meropenem 06/08/2019 Active Last Documented On 5 7:54AM ; [facility] Lyrica Allergy 03/23/2015 Active Last Documented On 5 7:54AM ; [facility] Keflex Allergy 03/23/2015 Active Last Documented On 5 7:54AM ; [facility] Erythromycin Allergy 03/23/2015 Active Last Documented On 5 7:54AM ; [facility] Codeine Sulfate Allergy 03/23/2015 Act ru Last Documented On 5 7:54AM ; [facility] Clindamycin HCl Allergy 06/08/2019 Act ru Last Documented On 5 7:54AM ; [facility] Cleocin Allergy 03/23/2015 Active Last Documented On 5 7:54AM ; [facility] Cephalexin Allergy 06/08/2019 Active Last Documented On 5 7:54AM ; [facility] Encounters Encounter Provider Location Date Check-In Time Check-Out Time Diagnosis [facility] Patrick Newton MD Surgery 9 11:04AM 11:59PM Insurance Includes: Active Insurance Policies Plan Name Member ID Group # Subscriber Relationship Effect ru Dates 1 - Medicare Part B [facility] [id number] Sandie Kinseyimer Self 05/03/2014 - Unknown 2 - BCBS [facility] [id number] Sandie Frank Self 08/03/2018 - Unknown Clinical Notes Includes: Clinical Notes from this encounter No Clinical Notes Recorded
--- OUTSIDE RECORDS SUMMARY | 2024-11-10 21:45 | XMS_ITS ---
Care Plan - [facility] Created on: November 10, 2024 Sandie Frank : 1955 Sex: Female Author Organization [facility] Address [address] [place] [address] Phone Care Team Providers Care Glue Spreading Machine Operator Name Role Phone TERRELL PHIPPS, LEOPOLDO Unavailable [phone] HARRIETT PHIPPS, EFFIE Koenig Primary Care Provider [phone] Yareli PHIPPS, Brian Shelton Unavailable [phone]
--- OUTSIDE RECORDS SUMMARY | 2024-11-10 21:45 | XMS_ITS | Clinical Summary ---
Author Organization [facility] Address [address] [place] [address] Phone Care Team Providers Care Business Change Manager Name Role Phone TERRELL PHIPPS, LEOPOLDO Unavailable [phone] HARRIETT PHIPPS, EFFIE Koenig Primary Care Provider [phone] Yareli PHIPPS, Brian Shelton Unavailable [phone] Reason for Visit and Chief Complaint The Chief Complaint is: right hip pain Problems Includes: Problems addressed during this encounter and other active Problems All Visits Onset Date Resolved Date Provider Condition S tatus Joint Pain in Both Knees 11/07/2024 Missael Avalos PA-C Active Last Documented On 5 7:54AM ; [facility] Joint Pain in the Right Hip 06/08/2019 Evelia Newton MD Active Last Documented On 9 1:19PM ; [facility] Joint Pain, Localized in Both Shoulders 08/20/2017 Giancarlo Wood MD Active Last Documented On 8 3:17PM ; [facility] Joint Pain, Localized in the Shoulder 06/17/2017 Amy Jimenez MD Active Last Documented On 7 8:45AM ; [facility] Right Forearm Bone Pain 01/09/2017 Amy rene MD Active Last Documented On 7 12:44PM ; [facility] Carpal Tunnel Syndrome 03/23/2015 Brian boss MD Active Last Documented On 5 10:36AM ; [facility] Plan of Treatment Patient overall states the hip is doing very well but she still has significant balance issues and continues to maintain rehab and recovery at [facility]. On exam today while assessing the patient's hip incision she was very unstable to where she is a 2-3 assist likely at all times until her balance improves even getting from a chair to standing position. Otherwise the hip is performing well. Continue to be diligent with physical therapy improving her balance and strength in the lower extremities. Recommend following up in 6 more weeks repeat assessment. Discharge from facility when she is stable enough to return home - Last Documented On 09/08/2019 4:44PM ; [facility] Future Appointments Date Time Location Provi brittanie Follow Up 12/19/2024 9:00AM [facility] Missael Avalos PA-C Last Documented On 5 8:49AM ; [facility] Instructions to patient Instructions for patient to see pcp for bp and wt Last Documented On 0 11:29AM ; [facility] Lose weight Last Documented On 0 11:29AM ; [facility], [facility] Assessments Includes: Assessments from this encounter Findings 6 weeks postop right anterior total hip - Last Documented On 09/08/2019 4:44PM ; [facility] Instructions Includes: Instructions from this encounter Instructions to patient Instructions for patient to see pcp for bp and wt Last Documented On 0 11:29AM ; [facility] Lose weight Last Documented On 0 11:29AM ; [facility] Medical Equipment - Implanted Devices Includes: Current Devices No Medical Equipment Recorded Medications Includes: Medications discussed during this encounter and other current Medications Current Medications (continue as prescribed) QUEtiapine Fumarate 300 MG Oral Tablet 11/04/2024 Pr ovider: Diagnosis: Last Documented On 5 8:26AM By Kaylynn Philippe ; [facility] amLODIPine Besylate 5 MG Oral Tablet 11/04/2024 Prov ider: LEOPOLDO TEJADA MD Diagnosis: Last Documented On 5 8:26AM By Kaylynn Philippe ; [facility] Rosuvastatin Calcium 20 MG Oral Tablet 11/01/2024 Pr ovider: THOMPSON GOSS MD Diagnosis: Last Documented On 5 8:26AM By Kaylynn Philippe ; [facility] DULoxetine HCl 60 MG Oral Capsule Delayed Releas e Particles 10/28/2024 Provider: Diagnosis: Last Documented On 5 8:26AM By Kaylynn Philippe ; [facility] Donepezil HCl 23 MG Oral Tablet 10/25/2024 Provider: Esther Mathew PA-C Diagnosis: Last Documented On 5 8:26AM By Kaylynn Philippe ; [facility] Trulance 3 MG Oral Tablet 10/23/2024 Provider: YAKOV DIXON MD Diagnosis: Last Documented On 5 8:26AM By Kaylynn Philippe ; [facility] Memantine HCl 10 MG Oral Tablet 10/22/2024 Provider: Esther Mathew PA-C Diagnosis: Last Documented On 5 8:26AM By Kaylynn Philippe ; [facility] lamoTRIgine 100 MG Oral Tablet 10/22/2024 Provider: Esther Mathew PA-C Diagnosis: Last Documented On 5 8:26AM By Kaylynn Philippe ; [facility] Montelukast Sodium 10 MG Oral Tablet 10/18/2024 Prov ider: Diagnosis: Last Documented On 5 8:26AM By Kaylynn Philippe ; [facility] Nitrofurantoin Monohyd Macro 100 MG Oral Capsule 10/17/2024 Provider: Maggi zimmer APRN Diagnosis: Last Documented On 5 8:26AM By Kaylynn Philippe ; [facility] Levothyroxine Sodium 88 MCG Oral Tablet 10/14/2024 P rovibrittanie: LEOPOLDO TEJADA MD Diagnosis: Last Documented On 5 8:26AM By Kaylynnmoreno Philippe ; [facility] Dantrolene Sodium 50 MG Oral Capsule 10/13/2024 Prov ider: Suzan Sanchez MD Diagnosis: Last Documented On 5 8:26AM By Kaylynn Philippe ; [facility] Emgality 120 MG/ML Subcutane ous Solution Auto-injector 10/10/2024 Provider: Esther Mathew PA-C Diagnosis: Last Documented On 5 8:26AM By Kaylynn Philippe ; [facility] Pantoprazole Sodium 40 MG Or al Tablet Delayed Release 10/07/2024 Provider: LEOPOLDO TEJADA MD Diagnosis: Last Documented On 5 8:26AM By Kaylynn Philippe ; [facility] busPIRone HCl 5 MG Oral Tablet 10/04/2024 Provider: Suzan Sanchez MD Diagnosis: Last Documented On 5 8:26AM By Kaylynn Philippe ; [facility] Linzess 72 MCG Oral Capsule 10/03/2024 Provider: Maggi Crawford APRN Diagnosis: Last Documented On 5 8:26AM By Kaylynn Philippe ; [facility] Hydrocortisone 5 MG Oral Tablet 09/29/2024 Provider: LEOPOLDO TEJADA MD Diagnosis: Last Documented On 5 8:26AM By Kaylynn Philippe ; [facility] Cefdinir 300 MG Oral Capsule 09/29/2024 Provider: Diagnosis: Last Documented On 5 8:26AM By Kaylynn Philippe ; [facility] Past Medications on file Zofran 4 MG Oral Tablet 07/20/2019 - 07/25/2019 Provid er: Patrick Newton MD Diagnosis: [id number] DO NOT FILL TILL 07/22/19 FOR SURGERY Last Documented On 9 12:44PM By Pat Oneil ; [facility] Colace 100 MG Oral Capsule 07/20/2019 - 10/18/2019 Provider: Patrick marsh MD Diagnosis: 1-2 tabs daily DO NOT FILL TILL 07/22/19 FOR SURGERY Last Documented On 9 12:44PM By Pat Oneil ; [facility] Neurontin 300 MG Oral Capsule 07/20/2019 - 10/18/2019 Provider: Patrick marsh MD Diagnosis: 1 every bedtime DO NOT ZEENAT L TILL 07/22/19 FOR SURGERY Last Documented On 9 12:34PM By Pat Oneil ; [facility] Dilaudid 2 MG Oral Tablet 07/20/2019 - 07/22/2019 Provider: Patrick marsh MD Diagnosis: 1-2 po q6h prn pain (RESCUE PAIN)DO NOT FILL TILL 07/22/19 FOR SURGERY Last Documented On 9 12:37PM By Pat Oneil ; [facility] Acetaminophen 500 MG Oral Tablet 07/20/2019 - 08/19/2019 Provider: Patrick Newton MD Diagnosis: 2 three times a day DO NOT FILL TILL 07/22/19 FOR SURGERY Last Documented On 9 12:44PM By Pat Oneil ; [facility] traMADol HCl 50 MG Oral Tablet 07/20/2019 - 07/25/2019 Provider: Patrick marsh MD Diagnosis: 1-2 po q6h prn pain DO NOT FILL TILL 07/22/19 FOR SURGERY Last Documented On 9 12:34PM By aPt Oneil ; [facility] oxyCODONE HCl 5 MG Oral Tablet 07/20/2019 - 07/25/2019 Provider: Patrick marsh MD Diagnosis: 1-2 po q6h prn pain DO NOT FILL TILL 07/22/19 FOR SURGERY Last Documented On 9 12:34PM By Pat Oneil ; [facility] Mupirocin 2% External Ointment 06/20/2019 - 06/25/2019 Provider: Patrick marsh MD Diagnosis: three times a day Apply to n ostrils 3 time a day 5 days prior to surgery. Last Documented On 9 1:10PM By Sushma Miller ; [facility] Cyclobenzaprine HCl 5MG Oral Tablet 08/20/2017 - 10/19/2017 Provider: Giancarlo Wood MD Diagnosis: Take 1 tablet every 8 hrs// Last Documented On 8 4:16PM By Yelena Call ; [facility] Cyclobenzaprine HCl 5MG Oral Tablet 07/31/2017 - 09/29/2017 Provider: Amy gonzalez MD Diagnosis: Take 1 tablet every 8 hrs// Last Documented On 7 11:22AM By Sonia Lmia ; [facility] Oketo 5-325MG Oral Tablet 06/17/2017 - 07/17/2017 Prov ider: Ramone Staples MD Diagnosis: 1-2 every 4-6 hours as needed Last Documented On 7 9:20AM By Shelly Sood ; [facility] Voltaren 1 % Gel 03/25/2017 - 04/24/2017 Provider: Amy Jimenez MD Diagnosis: four times a day Last Documented On 7 10:06AM By Viktoria Chopra ; [facility] Flector 1.3 % Patch 03/25/2017 - 04/24/2017 Provider: Amy Jimenez MD Diagnosis: once a day Last Documented On 7 10:06AM By Viktoria Chopra ; [facility] Oketo 10-325 MG Tablet 03/25/2017 - 04/24/2017 Provide r: Amy Jimenez MD Diagnosis: 1-2 po q 4-6h prn Last Documented On 7 9:59AM By Viktoria Chopra ; [facility] CeleXA 20 MG Tablet 02/25/2017 - 03/27/2017 Provider: Amy Jimenez MD Diagnosis: once a day Last Documented On 7 10:27AM By Haven Mancuso ; [facility] Flector 1.3 % Patch 02/25/2017 - 04/26/2017 Provider: Amy Jimenez MD Diagnosis: apply patch to affected area BID or as needed Last Documented On 7 9:57AM By Viktoria Chopra ; [facility] Oketo 10-325 MG Tablet 02/25/2017 - 03/07/2017 Provide r: Amy Jimenez MD Diagnosis: 1-2 po q 4-6h prn Last Documented On 7 9:53AM By Viktoria Chopra ; [facility] Oketo 10-325 MG Tablet 01/09/2017 - 01/19/2017 Provide r: Amy Jimenez MD Diagnosis: 1-2 po q 4-6h prn/jkp Last Documented On 7 1:10PM By Haven Mancuso ; [facility] Medications Administered Includes: Administered Medications from this encounter No Administered Medications Recorded Vital Signs Includes: Vital Signs from this encounter Vital Name 09/05/2019 11:29A Height (in) 67 Weight (lb) 240 Body Mass Index (kg/m2) 37.6 Body Surface Area (m2) 2.2 Note: rj Last Documented: On 09/05/2019 11:29A M ; [facility] Results Includes: Results discussed during this encounter No Results Recorded For Specified Dates History of Present Illness Includes: History of Present Illness from this encounter GABRIEL Frank is a 63 year old female. - Allergy list reviewed - Medication list reviewed with patient - Medication reconciliation performed Social History Description Last Updated No tobacco use 04/23/2015 Last Documented On 0 11:29AM ; [facility] Smoking status : Never smoker 04/23/2015 Last Documented On 0 11:29AM ; [facility] Caffeine use 03/23/2015 Last Documented On 0 11:29AM ; [facility] No recent change in diet 03/23/2015 Last Documented On 0 11:29AM ; [facility] Not a current smoker 03/23/2015 Last Documented On 0 11:29AM ; [facility] Not exercising regularly 03/23/2015 Last Documented On 0 11:29AM ; [facility] Not using alcohol 03/23/2015 Last Documented On 0 11:29AM ; [facility] Not using drugs 03/23/2015 Last Documented On 0 11:29AM ; [facility] Procedures and Surgical History Includes: Procedures from this encounter Procedures Code Diagnosis Performing Provider Service L ocation Service Date Clinical summary provided to patient Last Documented On 0 11:29AM ; [facility] history of an X-ray was performed 72737 Last Documented On 0 11:29AM ; [facility] history of an MRI was performed [id number] Last Documented On 0 11:29AM ; [facility] Surgical History Last Updated History of appendectomy 03/23/2015 Last Documented On 0 11:29AM ; [facility] History of hysterectomy 03/23/2015 Last Documented On 0 11:29AM ; [facility] Medical History Includes: Medical History addressed during this encounter Description Last Updated colon, 2 foot surgeries, tim n pump placement,cateracts, kidney stones, colectomy, heartburn/acid reflux 06/08/2019 Last Documented On 0 11:29AM ; [facility] A previous fracture 06/08/2019 Last Documented On 0 11:29AM ; [facility] History of asthma 06/08/2019 Last Documented On 0 11:29AM ; [facility] History of osteoporosis 06/08/2019 Last Documented On 0 11:29AM ; [facility] Rheumatology history 06/08/2019 Last Documented On 0 11:29AM ; [facility] Thyroid disease 06/08/2019 Last Documented On 0 11:29AM ; [facility] A recent immunization for pneumococcal p neumonia 10/05/2014 03/23/2015 Last Documented On 0 11:29AM ; [facility] Arthritic joint problems 03/23/2015 Last Documented On 0 11:29AM ; [facility] Gallbladder disease 03/23/2015 Last Documented On 0 11:29AM ; [facility] History of depression 03/23/2015 Last Documented On 0 11:29AM ; [facility] Family History Includes: Family History addressed during this encounter Description Last Updated Family history [use for free text] 01/09 Last Documented On 0 11:29AM ; [facility] Family history of cancer 01/09/2017 Last Documented On 0 11:29AM ; [facility] Family history of diabetes mellitus 04/2017 Last Documented On 0 11:29AM ; [facility] Family history of heart disease 01/10/20 Last Documented On 0 11:29AM ; [facility] Review of Systems Includes: Review of Systems from this encounter Systemic: Not feeling tired (fatigue), no recent weight loss, and no recent weight gain. No edema. Head: Headache. No sinus pain. Eyes: No vision problems and no glaucomatous visual field defect. Otolaryngeal: No hearing loss and no tinnitus. No nasal symptoms. Cardiovascular: No chest pain or discomfort and no palpitations. Pulmonary: Daytime asthma symptoms. No cough. Chronic cough and wheezing. Gastrointestinal: No heartburn and no abdominal pain. Endocrine: Hot flashes and muscle weakness. Hematologic: No easy bleeding. A tendency for easy bruising. Musculoskeletal: Lower back pain. No soft tissue swelling. Pain localized to one or more joints. Neurological: No dizziness, no convulsions, and no numbness. Psychological: Anxiety, emotional lability, and depression. No insomnia. Not crying for no reason. Skin: No dry skin, no rash, and no ulcers. Allergic and Immunologic: Complaint of seasonal allergic reaction. Mental Status Includes: Mental Status from this encounter Description Anxiety Functional Status Includes: Functional Status from this encounter No Functional Status Recorded Physical Exam Includes: Physical Exam from this encounter Allergies Includes: Active Allergies Substance Type Reaction Onset Date Resolved Date Statu s OTHER Allergy meropenem 06/08/2019 Active Last Documented On 5 7:54AM ; [facility] Lyrica Allergy 03/23/2015 Active Last Documented On 5 7:54AM ; [facility] Keflex Allergy 03/23/2015 Active Last Documented On 5 7:54AM ; [facility] Erythromycin Allergy 03/23/2015 Active Last Documented On 5 7:54AM ; [facility] Codeine Sulfate Allergy 03/23/2015 Act ru Last Documented On 5 7:54AM ; [facility] Clindamycin HCl Allergy 06/08/2019 Act ru Last Documented On 5 7:54AM ; [facility] Cleocin Allergy 03/23/2015 Active Last Documented On 5 7:54AM ; [facility] Cephalexin Allergy 06/08/2019 Active Last Documented On 5 7:54AM ; [facility], [facility] Encounters Encounter Provider Location Date Check-In Time Check-Out Time Diagnosis Post Op Patrick Newton MD [facility] 09/05/19 20 11:12AM 12:16PM Insurance Includes: Active Insurance Policies Plan Name Member ID Group # Subscriber Relationship Effect ru Dates 1 - Medicare Part B [facility] [id number] Sandie Shelton [place] Self 05/03/2014 - Unknown 2 - [facility] [id number] Sandie Frank Self 08/03/2018 - Unknown Clinical Notes Includes: Clinical Notes from this encounter No Clinical Notes Recorded
--- OUTSIDE RECORDS SUMMARY | 2024-11-10 21:45 | XMS_ITS ---
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 Name Role Phone TERRELL PHIPPS, LEOPOLDO Unavailable [phone] HARRIETT PHIPPS, EFFIE Koenig Primary Care Provider [phone] Yareli PHIPPS, Brian Shelton Unavailable [phone] Problems Includes: Active, inactive, and resolved Problems All Visits Onset Date Resolved Date Provider Condition S tatus Joint Pain in Both Knees 11/07/2024 Missael Avalos PA-C Active Last Documented On 5 7:54AM ; [facility] Joint Pain in the Right Hip 06/08/2019 Evelia Newton MD Active Last Documented On 9 1:19PM ; [facility] Joint Pain, Localized in Both Shoulders 08/20/2017 Giancarlo Wood MD Active Last Documented On 8 3:17PM ; [facility] Joint Pain, Localized in the Shoulder 06/17/2017 Amy Jimenez MD Active Last Documented On 7 8:45AM ; [facility] Right Forearm Bone Pain 01/09/2017 mAy rene MD Active Last Documented On 7 12:44PM ; [facility] Carpal Tunnel Syndrome 03/23/2015 Brian boss MD Active Last Documented On 5 10:36AM ; [facility] Plan of Treatment Findings Encounter Date Patient screened for future fall risk: documentation of any fall with injury in past year NEW PROBLEM/EST PT with Missael Avalos PA-C 11/07/2024 Last Documented On 5 8:50AM ; [facility] Future Appointments Date Time Location Provi brittanie Follow Up 12/19/2024 9:00AM [facility] Missael Avalos PA-C Last Documented On 5 8:49AM ; [facility] Instructions to patient Instructions for patient to see pcp for bp and wt Last Documented On 5 7:55AM ; [facility] Lose weight Last Documented On 5 7:55AM ; [facility] Instructions for patient to see pcp for bp and wt Last Documented On 3 2:49PM ; [facility] Lose weight Last Documented On 3 2:49PM ; [facility] Instructions for patient to see pcp for bp and wt Last Documented On 0 10:19AM ; [facility] Lose weight Last Documented On 0 10:19AM ; [facility] Instructions for patient to see pcp for bp and wt Last Documented On 0 11:29AM ; [facility] Lose weight Last Documented On 0 11:29AM ; [facility] Instructions for patient to see pcp for bp and wt Last Documented On 9 2:23PM ; [facility] Lose weight Last Documented On 9 2:23PM ; [facility] Instructions for patient see PCP for Bp and weight management Last Documented On 8 8:12AM ; [facility] Lose weight Last Documented On 8 8:12AM ; [facility] Instructions for patient see PCP for Bp and weight management Last Documented On 8 3:17PM ; [facility] Lose weight Last Documented On 8 3:17PM ; [facility] Instructions for patient see PCP for Bp and weight management Last Documented On 7 9:34AM ; [facility] Lose weight Last Documented On 7 9:34AM ; [facility] Instructions for patient see PCP for Bp and weight management Last Documented On 7 8:45AM ; [facility] Lose weight Last Documented On 7 8:45AM ; [facility] Instructions for patient see PCP for Bp and weight management Last Documented On 7 10:30AM ; [facility] Lose weight Last Documented On 7 10:30AM ; [facility] Instructions for patient see PCP for Bp and weight management Last Documented On 7 8:46AM ; [facility] Lose weight Last Documented On 7 8:46AM ; [facility] Instructions for patient see PCP for Bp and weight management Last Documented On 7 9:18AM ; [facility] Lose weight Last Documented On 7 9:18AM ; [facility] Instructions for patient see PCP for Bp and weight management Last Documented On 7 8:35AM ; [facility] Lose weight Last Documented On 7 8:35AM ; [facility] Instructions for patient see PCP for Bp and weight management Last Documented On 7 12:05PM ; [facility] Lose weight Last Documented On 7 12:05PM ; [facility] Instructions for patient see PCP for Bp and weight management Last Documented On 7 12:47PM ; [facility] Lose weight Last Documented On 7 12:47PM ; [facility] Instructions for patient see PCP for weight and BP management Last Documented On 5 9:21AM ; [facility] Lose weight Last Documented On 5 9:21AM ; [facility] Assessments Includes: Assessments for all patient encounters Findings Encounter Date Overweight NEW PROBLEM/EST PT with Missael Avalos PA-C 11/07/2024 Last Documented On 5 8:50AM ; [facility] Instructions Includes: Instructions for all patient encounters Instructions to patient Instructions for patient to see pcp for bp and wt Last Documented On 5 7:55AM ; [facility] Lose weight Last Documented On 5 7:55AM ; [facility] Instructions for patient to see pcp for bp and wt Last Documented On 3 2:49PM ; [facility] Lose weight Last Documented On 3 2:49PM ; [facility] Instructions for patient to see pcp for bp and wt Last Documented On 0 10:19AM ; [facility] Lose weight Last Documented On 0 10:19AM ; [facility] Instructions for patient to see pcp for bp and wt Last Documented On 0 11:29AM ; [facility] Lose weight Last Documented On 0 11:29AM ; [facility] Instructions for patient to see pcp for bp and wt Last Documented On 9 2:23PM ; [facility] Lose weight Last Documented On 9 2:23PM ; [facility] Instructions for patient see PCP for Bp and weight management Last Documented On 8 8:12AM ; [facility] Lose weight Last Documented On 8 8:12AM ; [facility] Instructions for patient see PCP for Bp and weight management Last Documented On 8 3:17PM ; [facility] Lose weight Last Documented On 8 3:17PM ; [facility] Instructions for patient see PCP for Bp and weight management Last Documented On 7 9:34AM ; [facility] Lose weight Last Documented On 7 9:34AM ; [facility] Instructions for patient see PCP for Bp and weight management Last Documented On 7 8:45AM ; [facility] Lose weight Last Documented On 7 8:45AM ; [facility] Instructions for patient see PCP for Bp and weight management Last Documented On 7 10:30AM ; [facility] Lose weight Last Documented On 7 10:30AM ; [facility] Instructions for patient see PCP for Bp and weight management Last Documented On 7 8:46AM ; [facility] Lose weight Last Documented On 7 8:46AM ; [facility] Instructions for patient see PCP for Bp and weight management Last Documented On 7 9:18AM ; [facility] Lose weight Last Documented On 7 9:18AM ; [facility] Instructions for patient see PCP for Bp and weight management Last Documented On 7 8:35AM ; [facility] Lose weight Last Documented On 7 8:35AM ; [facility] Instructions for patient see PCP for Bp and weight management Last Documented On 7 12:05PM ; [facility] Lose weight Last Documented On 7 12:05PM ; [facility] Instructions for patient see PCP for Bp and weight management Last Documented On 7 12:47PM ; [facility] Lose weight Last Documented On 7 12:47PM ; [facility] Instructions for patient see PCP for weight and BP management Last Documented On 5 9:21AM ; [facility] Lose weight Last Documented On 5 9:21AM ; [facility] Medical Equipment - Implanted Devices Includes: Current and historical Devices No Medical Equipment Recorded Medications Includes: Current and historical Medications Current Medications (continue as prescribed) QUEtiapine Fumarate 300 MG Oral Tablet 11/04/2024 Pr ovider: Diagnosis: Last Documented On 5 8:26AM By Kaylynn Philippe ; [facility] amLODIPine Besylate 5 MG Oral Tablet 11/04/2024 Prov ider: LEOPOLDO TEJADA MD Diagnosis: Last Documented On 5 8:26AM By Kaylynn Philippe ; [facility] Rosuvastatin Calcium 20 MG Oral Tablet 11/01/2024 Pr ovider: THOMPSON OGSS MD Diagnosis: Last Documented On 5 8:26AM By Kaylynn Philippe ; [facility] DULoxetine HCl 60 MG Oral Capsule Delayed Releas e Particles 10/28/2024 Provider: Diagnosis: Last Documented On 5 8:26AM By Kaylynn Philippe ; [facility] Donepezil HCl 23 MG Oral Tablet 10/25/2024 Provider: Esther Mathew PA-C Diagnosis: Last Documented On 5 8:26AM By Kaylynnchavo Philippe ; [facility] Trulance 3 MG Oral Tablet 10/23/2024 Provider: YAKOV DIXON MD Diagnosis: Last Documented On 5 8:26AM By Kaylynnchavo Philippe ; [facility] Memantine HCl 10 MG Oral Tablet 10/22/2024 Provider: Esther Mathew PA-C Diagnosis: Last Documented On 5 8:26AM By Kaylynn Philippe ; [facility] lamoTRIgine 100 MG Oral Tablet 10/22/2024 Provider: Esther Mathew PA-C Diagnosis: Last Documented On 5 8:26AM By Kaylynn Philippe ; [facility] Montelukast Sodium 10 MG Oral Tablet 10/18/2024 Prov ider: Diagnosis: Last Documented On 5 8:26AM By Kaylynn Philippe ; [facility] Nitrofurantoin Monohyd Macro 100 MG Oral Capsule 10/17/2024 Provider: Maggi zimmer [employer] Diagnosis: Last Documented On 5 8:26AM By Kaylynn Philippe ; [facility] Levothyroxine Sodium 88 MCG Oral Tablet 10/14/2024 P elena: LEOPOLDO TEJADA MD Diagnosis: Last Documented On 5 8:26AM By Kaylynn Philippe ; [facility] Dantrolene Sodium 50 MG Oral Capsule 10/13/2024 Prov ider: Suzan Sanchez MD Diagnosis: Last Documented On 5 8:26AM By Kaylynn Philippe ; [facility] Emgality 120 MG/ML Subcutane ous Solution Auto-injector 10/10/2024 Provider: Esther Mathew PA-C Diagnosis: Last Documented On 5 8:26AM By Kaylynn Phiilppe ; [facility] Pantoprazole Sodium 40 MG Or al Tablet Delayed Release 10/07/2024 Provider: LEOPOLDO TEJADA MD Diagnosis: Last Documented On 5 8:26AM By Kaylynn Philippe ; [facility] busPIRone HCl 5 MG Oral Tablet 10/04/2024 Provider: Suzan Sanchez MD Diagnosis: Last Documented On 5 8:26AM By Kaylynn Philippe ; [facility] Linzess 72 MCG Oral Capsule 10/03/2024 Provider: Maggi Crawford APRN Diagnosis: Last Documented On 5 8:26AM By Kaylynn Philippe ; [facility] Hydrocortisone 5 MG Oral Tablet 09/29/2024 Provider: LEOPOLDO TEJADA MD Diagnosis: Last Documented On 5 8:26AM By Kaylynn Philippe ; [facility], [facility] Cefdinir 300 MG Oral Capsule 09/29/2024 Provider: Diagnosis: Last Documented On 5 8:26AM By Kaylynn Philippe ; [facility], [facility] Past Medications on file Sodium Bicarbonate 325 MG Oral Tablet 07/09/2020 - 01/2025 Provider: Diagnosis: Last Documented On 5 8:24AM By Kaylynn Philippe ; [facility] Hydrocortisone 5 MG Oral Tablet 07/09/2020 - Provider: Diagnosis: Last Documented On 5 8:24AM By Kaylynn Philippe ; [facility] lamoTRIgine 100 MG Oral Tablet 07/09/2020 - 11/07/2024 Provider: Diagnosis: Last Documented On 5 8:23AM By Kaylynn Philippe ; [facility] Levothyroxine Sodium 88 MCG Oral Tablet 07/09/2020 - 0 11/07/2024 Provider: Diagnosis: Last Documented On 5 8:24AM By Kaylynn Philippe ; [facility] Decara 1.25 MG (15500 UT) Oral Capsule 07/09/2020 - Provider: Diagnosis: Last Documented On 5 8:23AM By Kaylynn Philippe ; [facility] Magnesium 250 MG Oral Tablet 07/09/2020 - 11/08/19 Provider: Diagnosis: Last Documented On 5 8:23AM By Kaylynn Philippe ; [facility] Martínez Colon Health Oral Capsule 07/09/2020 - 2024 Provider: Diagnosis: Last Documented On 5 8:23AM By Kaylynn Philippe ; [facility] Stool Softener 100 MG Oral Capsule 07/09/2020 - Provider: Diagnosis: Last Documented On 5 8:23AM By Kaylynn Philippe ; [facility] Symbicort 160-4.5 MCG/ACT Inhalation Aerosol 0 - 11/07/2024 Provider: Diagnosis: Last Documented On 5 8:24AM By Kaylynn Philippe ; [facility] Albuterol Sulfate (2.5 MG/3M L) 0.083% Inhalation Nebulization solution 07/09/2020 - 11/07/2024 Provider: Diagnosis: Last Documented On 5 8:23AM By Kaylynn Philippe ; [facility] Azelastine HCl 0.1% Nasal Solution 07/09/2020 - 2024 Provider: Diagnosis: Last Documented On 5 8:25AM By Kaylynn Philippe ; [facility], [facility] Budesonide 0.25 MG/2ML Inhalation Suspension 0 - 11/07/2024 Provider: Diagnosis: Last Documented On 5 8:25AM By Kaylynn Philippe ; [facility] rOPINIRole HCl 0.5 MG Oral Tablet 07/09/2020 - 025 Provider: Diagnosis: Last Documented On 5 8:23AM By Kaylynn Philippe ; [facility] Memantine HCl 10 MG Oral Tablet 07/05/2020 - Provider: Esther Mathew PA-C Diagnosis: Last Documented On 5 8:24AM By Kaylynn Philippe ; [facility] Zofran 4 MG Oral Tablet 07/20/2019 - 07/25/2019 Provid er: Patrick Newton MD Diagnosis: [id number] DO NOT FILL TILL 07/22/19 FOR SURGERY Last Documented On 9 12:44PM By Pat Oneil ; [facility] Colace 100 MG Oral Capsule 07/20/2019 - 10/18/2019 Provider: Patrick marsh MD Diagnosis: 1-2 tabs daily DO NOT FILL TILL 07/22/19 FOR SURGERY Last Documented On 9 12:44PM By Pat Oneil ; [facility] Neurontin 300 MG Oral Capsule 07/20/2019 - 10/18/2019 Provider: Patrick marsh MD Diagnosis: 1 every bedtime DO NOT ZEENAT L TILL 07/22/19 FOR SURGERY Last Documented On 9 12:34PM By Pat Oneil ; [facility] Dilaudid 2 MG Oral Tablet 07/20/2019 - 07/22/2019 Provider: Patrick marsh MD Diagnosis: 1-2 po q6h prn pain (RESCUE PAIN)DO NOT FILL TILL 07/22/19 FOR SURGERY Last Documented On 9 12:37PM By Pat Oneil ; [facility] Acetaminophen 500 MG Oral Tablet 07/20/2019 - 08/19/2019 Provider: Patrick Newton MD Diagnosis: 2 three times a day DO NOT FILL TILL 07/22/19 FOR SURGERY Last Documented On 9 12:44PM By Pat Oneil ; [facility] traMADol HCl 50 MG Oral Tablet 07/20/2019 - 07/25/2019 Provider: Patrick marsh MD Diagnosis: 1-2 po q6h prn pain DO NOT FILL TILL 07/22/19 FOR SURGERY Last Documented On 9 12:34PM By Pat Oneil ; [facility] oxyCODONE HCl 5 MG Oral Tablet 07/20/2019 - 07/25/2019 Provider: Patrick marsh MD Diagnosis: 1-2 po q6h prn pain DO NOT FILL TILL 07/22/19 FOR SURGERY Last Documented On 9 12:34PM By Pat Oneil ; [facility], [facility] Mupirocin 2% External Ointment 06/20/2019 - 06/25/2019 Provider: Patrick marsh MD Diagnosis: three times a day Apply to n ostrils 3 time a day 5 days prior to surgery. Last Documented On 9 1:10PM By Sushma Miller ; [facility], [facility] Advanced Probiotic Oral Capsule 06/08/2019 - 5 Provider: Diagnosis: Last Documented On 5 8:24AM By Kaylynn Philippe ; [facility] Restasis 0.05% Ophthalmic Emulsion 06/08/2019 - 2019 Provider: Diagnosis: Last Documented On 0 11:01AM By Sandra Mack ; [facility] SEROquel 300 MG Oral Tablet 06/08/2019 - 11/07/2024 Pr ovider: Diagnosis: Last Documented On 5 8:25AM By Kaylynn Philippe ; [facility] Ventolin HFA 108 (90 Base) M CG/ACT Inhalation Aerosol Solution 06/08/2019 - 07/09/2020 Provider: Diagnosis: Last Documented On 0 10:58AM By Sandra Mack ; [facility] Vitamin C 1000 MG Oral Tablet 06/08/2019 - 025 Provider: Diagnosis: Last Documented On 5 8:24AM By Kaylynn Philippe ; [facility] raNITIdine HCl 150 MG Oral Capsule 06/08/2019 - 2024 Provider: Diagnosis: Last Documented On 5 8:25AM By Kaylynn Philippe ; [facility] Daily Multivitamin Oral Capsule 06/08/2019 - 5 Provider: Diagnosis: Last Documented On 5 8:24AM By Kaylynn Philippe ; [facility] Melatonin 10 MG Oral Capsule 06/08/2019 - 11/08/19 25 Provider: Diagnosis: Last Documented On 5 8:24AM By Kaylynn Philippe ; [facility] Metoprolol Tartrate 10 MG/ML Oral Solution 06/08/2019 - 07/09/2020 Provider: Diagnosis: Last Documented On 0 10:56AM By Sandra Mack ; [facility] Montelukast Sodium 10 MG Oral Tablet 06/08/2019 - 0 01/2025 Provider: Diagnosis: Last Documented On 5 8:25AM By Kaylynn Philippe ; [facility] Albuterol Sulfate (2.5 MG/3M L) 0.083% Inhalation Nebulization solution 06/08/2019 - 11/07/2024 Provider: Diagnosis: Last Documented On 5 8:24AM By Kaylynn Philippe ; [facility] Alendronate Sodium 70 MG Oral Tablet 06/08/2019 - 01/2025 Provider: Diagnosis: Last Documented On 5 8:24AM By Kaylynn Philippe ; [facility] Alrex 0.2% Ophthalmic Suspension 06/08/2019 - 11/08/19 Provider: Diagnosis: Last Documented On 5 8:24AM By Kaylynn Philippe ; [facility] amLODIPine Besylate 5 MG Oral Tablet 06/08/2019 - 01/2025 Provider: Diagnosis: Last Documented On 5 8:24AM By Kaylynn Philippe ; [facility] Biotin 23592 MCG Oral Tablet 06/08/2019 - 11/07/2024 P rovider: Diagnosis: Last Documented On 5 8:24AM By Kaylynn Philippe ; [facility] Budesonide 0.25 MG/2ML Inhalation Suspension 9 - 11/07/2024 Provider: Diagnosis: Last Documented On 5 8:24AM By Kaylynn Philippe ; [facility] Crestor 20 MG Oral Tablet 06/08/2019 - 11/07/2024 Prov ider: Diagnosis: Last Documented On 5 8:25AM By Kaylynn Philippe ; [facility] Cymbalta 30 MG Oral Capsule Delayed Release Particles 06/08/2019 - 11/07/2024 Provider: Diagnosis: Last Documented On 5 8:24AM By Kaylynn Philippe ; [facility] Cymbalta 60 MG Oral Capsule Delayed Release Particles 06/08/2019 - 11/07/2024 Provider: Diagnosis: Last Documented On 5 8:25AM By Kaylynn Philippe ; [facility] Donepezil HCl 10 MG Oral Tablet 06/08/2019 - 5 Provider: Diagnosis: Last Documented On 5 8:24AM By Kaylynn Philippe ; [facility] Flax Seed Oil 1000 MG Oral Capsule 06/08/2019 - 2024 Provider: Diagnosis: Last Documented On 5 8:25AM By Kaylynn Philippe ; [facility] Fluticasone Furoate 100 MCG/ ACT Inhalation Aerosol Powder Breath Activated 06/08/2019 - 11/07/2024 Provider: Diagnosis: Last Documented On 5 8:25AM By Kaylynn Philippe ; [facility] Gabapentin 100 MG Oral Capsule 06/08/2019 - 07/09/2020 Provider: Diagnosis: Last Documented On 0 11:00AM By Sandra Mack ; [facility] Hydrocortisone 5 MG Oral Tablet 06/08/2019 - 5 Provider: Diagnosis: Last Documented On 5 8:25AM By Kyalynn Philippe ; [facility] EQ Hydrocortisone 1% External Cream 06/08/2019 - 11/07 Provider: Diagnosis: Last Documented On 5 8:25AM By Kaylynn Philippe ; [facility] lamoTRIgine 100 MG Oral Tablet 06/08/2019 - 11/07/2024 Provider: Diagnosis: Last Documented On 5 8:25AM By Kaylynn Philippe ; [facility] Levothyroxine Sodium 100 MCG Oral Capsule 06/08/2019 - 07/09/2020 Provider: Diagnosis: Last Documented On 0 10:57AM By Sandra Mack ; [facility] Lunesta 3 MG Oral Tablet 06/08/2019 - 11/07/2024 Provi brittanie: Diagnosis: Last Documented On 5 8:25AM By Kaylynn Philippe ; [facility] Lutein 20 MG Oral Capsule 06/08/2019 - 11/07/2024 Provider: Diagnosis: Last Documented On 5 8:25AM By Kaylynn Philippe ; [facility] Vitamin D3 28095 UNIT Oral Capsule 06/08/2019 - Provider: Diagnosis: Last Documented On 5 8:24AM By Kaylynn Philippe ; [facility] Cyclobenzaprine HCl 5MG Oral Tablet 08/20/2017 - 10/19/2017 Provider: Giancarlo Wood MD Diagnosis: Take 1 tablet every 8 hrs// Last Documented On 8 4:16PM By Yelena Call ; [facility] Cyclobenzaprine HCl 5MG Oral Tablet 07/31/2017 - 09/29/2017 Provider: Amy gonzalez MD Diagnosis: Take 1 tablet every 8 hrs// Last Documented On 7 11:22AM By Sonia Lima ; [facility] Seagraves 5-325MG Oral Tablet 06/17/2017 - 07/17/2017 Prov ider: Ramone Staples MD Diagnosis: 1-2 every 4-6 hours as needed Last Documented On 7 9:20AM By Shelly Sood ; [facility] Voltaren 1 % Gel 03/25/2017 - 04/24/2017 Provider: Amy Jimenez MD Diagnosis: four times a day Last Documented On 7 10:06AM By Viktoria Chopra ; [facility] Flector 1.3 % Patch 03/25/2017 - 04/24/2017 Provider: Amy Jimenez MD Diagnosis: once a day Last Documented On 7 10:06AM By Viktoria Chopra ; [facility] Seagraves 10-325 MG Tablet 03/25/2017 - 04/24/2017 Provide r: Amy Jimenez MD Diagnosis: 1-2 po q 4-6h prn Last Documented On 7 9:59AM By Viktoria Chopra ; [facility] CeleXA 20 MG Tablet 02/25/2017 - 03/27/2017 Provider: Amy Jimenez MD Diagnosis: once a day Last Documented On 7 10:27AM By Haven Mancuso ; [facility] Flector 1.3 % Patch 02/25/2017 - 04/26/2017 Provider: Amy Jimenez MD Diagnosis: apply patch to affected area BID or as needed Last Documented On 7 9:57AM By Viktoria Chopra ; [facility] Seagraves 10-325 MG Tablet 02/25/2017 - 03/07/2017 Provide r: Amy Jimenez MD Diagnosis: 1-2 po q 4-6h prn Last Documented On 7 9:53AM By Viktoria Chopra ; [facility] Seagraves 10-325 MG Tablet 01/09/2017 - 01/19/2017 Provide r: Amy Jimenez MD Diagnosis: 1-2 po q 4-6h prn/jkp Last Documented On 7 1:10PM By Haven Mancuso ; [facility] Donepezil HCl 10 MG Tablet 01/07/2017 - 06/08/2019 Pro vider: Diagnosis: Last Documented On 9 2:17PM By Sandra Mack ; [facility] Hydrocortisone 10 MG Tablet 01/07/2017 - 06/08/2019 Pr ovider: JOSIAS DANIELSON JR. Diagnosis: Last Documented On 9 2:17PM By Sandra Mack ; [facility] Levothyroxine Sodium 88 MCG Tablet 01/07/2017 - 06/08/2019 Provider: JOSIAS DANIELSON JR. Diagnosis: Last Documented On 9 2:16PM By Sandra Mack ; [facility] ALPRAZolam 0.5 MG Tablet 01/07/2017 - 06/08/2019 Provi brittanie: Diagnosis: Last Documented On 9 2:17PM By Sandra Mack ; [facility] LamoTRIgine 100 MG Tablet 12/23/2016 - 06/08/2019 Prov ider: Diagnosis: Last Documented On 9 2:17PM By Sandra Mack ; [facility] Nystatin 747919 UNIT/ML Suspension 12/18/2016 - 06/08/2019 Provider: LEOPOLDO Garcia Diagnosis: Last Documented On 9 2:17PM By Sandra Mack ; [facility] Ranexa 1000 MG Tablet Extend ed Release 12 Hour 12/16/2016 - 06/08/2019 Provider: THOMPSON GOSS MD Diagnosis: Last Documented On 9 2:17PM By Sandra Mack ; [facility] Venlafaxine HCl 75 MG Tablet 12/16/2016 - 06/08/2019 P rovider: Diagnosis: Last Documented On 9 2:17PM By Sandra Mack ; [facility] Gabapentin 300 MG Capsule 12/16/2016 - 06/08/2019 Prov ider: SAGAR EASON MD Diagnosis: Last Documented On 9 2:17PM By Sandra Mack ; [facility] Donepezil HCl 10 MG Tablet 12/06/2016 - 06/08/2019 Pro vider: Diagnosis: Last Documented On 9 2:17PM By Sandra Mack ; [facility] QUEtiapine Fumarate 200 MG Tablet 12/06/2016 - 019 Provider: Diagnosis: Last Documented On 9 2:16PM By Sandra Mack ; [facility] Morphine Sulfate 10 MG/0.7ML Device (not specified) 03/23/2015 - 06/08/2019 Provider: Diagnosis: Last Documented On 9 2:16PM By Sandra Mack ; [facility] Effexor XR 150 MG Capsule, e xtended-release 24 hour 03/23/2015 - 06/08/2019 Provider: Diagnosis: Last Documented On 9 2:16PM By Sandra Mack ; [facility] Ranitidine HCl 150 MG Tablet 03/23/2015 - 06/08/2019 P rovider: Diagnosis: Last Documented On 9 2:16PM By Sandra Mack ; [facility] SEROquel 100 MG Tablet 03/23/2015 - 06/08/2019 Provide r: Diagnosis: Last Documented On 9 2:16PM By Sandra Mack ; [facility] Topiramate 100 MG Tablet 03/23/2015 - 06/08/2019 Provi brittanie: Diagnosis: Last Documented On 9 2:16PM By Sandra Mack ; [facility] Hydrocortisone 5 MG Tablet 03/23/2015 - 06/08/2019 Pro vider: Diagnosis: Last Documented On 9 2:16PM By Sandra Mack ; [facility] Crestor 10 MG Tablet 03/23/2015 - 06/08/2019 Provider: Diagnosis: Last Documented On 9 2:13PM By Sandra Mack ; [facility] Ranexa 1000 MG Tablet, extended-release 12 hour 03/23/2015 - 06/08/2019 Provider: Diagnosis: Last Documented On 9 2:17PM By Sandra Mack ; [facility] Medications Administered Includes: Administered Medications in patient's chart No Administered Medications Recorded Vital Signs Includes: Vital Signs from 11/11/2023 through 11/10/2024 Vital Name 11/07/2024 07:56A Height (in) 67 Weight (lb) 200 Body Mass Index 31.3 Body Surface Area 2 Note: ab Last Documented: On 11/07/2024 7:56AM ; [facility] Results Includes: Results from 11/11/2023 through 11/10/2024 No Results Recorded For Specified Dates History of Present Illness History of Present Illness not supported for this document type No History of Present Illness Recorded Social History Description Last Updated No recent change in diet 08/19/2022 Last Documented On 3 8:00AM ; [facility] Not a current smoker. 08/19/2022 Last Documented On 3 8:00AM ; [facility] Non-smoker 07/09/2020 Last Documented On 0 11:30AM ; [facility] Not a current smoker. 07/09/2020 Last Documented On 0 11:30AM ; [facility] No tobacco use 04/23/2015 Last Documented On 5 9:45AM ; [facility] Smoking status : Never smoker 04/23/2015 Last Documented On 5 9:45AM ; [facility] Caffeine use 03/23/2015 Last Documented On 5 10:01AM ; [facility] No recent change in diet 03/23/2015 Last Documented On 5 10:01AM ; [facility] Not a current smoker 03/23/2015 Last Documented On 5 10:01AM ; [facility] Not exercising regularly 03/23/2015 Last Documented On 5 10:01AM ; [facility] Not using alcohol 03/23/2015 Last Documented On 5 10:01AM ; [facility] Not using drugs 03/23/2015 Last Documented On 5 10:01AM ; [facility] Procedures and Surgical History Includes: Procedures from 11/11/2023 through 11/10/2024 Procedures Code Diagnosis Performing Provider Service Location Service Date X-RAY EXAM KNEE 4 OR MORE (Bilateral Procedure) 98917 Bilateral primary osteoarthritis of knee Missael Avalos PA-C [facility] 11/07/2024 Last Documented On 5 7:26AM ; [facility] Triamcinolone/Kenalog, 10mg per cc [id number] Unilateral primary osteoarthritis, right knee Missael Avalos PA-C [facility] 11/07/2024 Last Documented On 5 7:26AM ; [facility] DRAIN/INJECT, JOINT/BURSA (RIGHT) 53603 Unilateral primary osteoarthritis, right knee Missael Avalos PA-C [facility] 11/07/2024 Last Documented On 5 7:26AM ; [facility] Surgical History Last Updated History of total hip replacement 023 Last Documented On 3 8:00AM ; [facility] History of appendectomy 03/23/2015 Last Documented On 5 10:01AM ; [facility] History of hysterectomy 03/23/2015 Last Documented On 5 10:01AM ; [facility] Medical History Includes: Medical History in patient's chart Description Last Updated History of Anemia 08/19/2022 Last Documented On 3 8:00AM ; [facility] History of arthritis 08/19/2022 Last Documented On 3 8:00AM ; [facility] History of Fractures 08/19/2022 Last Documented On 3 8:00AM ; [facility] History of Heartburn / Acid Reflux 08/19 Last Documented On 3 8:00AM ; [facility] History of Thyroid Disease 08/19/2022 Last Documented On 3 8:00AM ; [facility] Anemia 07/09/2020 Last Documented On 0 11:30AM ; [facility] Arthritis 07/09/2020 Last Documented On 0 11:30AM ; [facility] Heartburn / Acid Reflux 07/09/2020 Last Documented On 0 11:30AM ; [facility] History of Blood Transfusion 07/09/2020 Last Documented On 0 11:30AM ; [facility], [facility] History of Rheumatology 07/09/2020 Last Documented On 0 11:30AM ; [facility] Hypertension 07/09/2020 Last Documented On 0 11:30AM ; [facility] Previous Fractures 07/09/2020 Last Documented On 0 11:30AM ; [facility] Thyroid Disease 07/09/2020 Last Documented On 0 11:30AM ; [facility] A recent immunization for flu 07/09/2020 Last Documented On 0 11:30AM ; [facility] Appendectomy 07/09/2020 Last Documented On 0 11:30AM ; [facility] Hysterectomy 07/09/2020 Last Documented On 0 11:30AM ; [facility] Total hip replacement 07/09/2020 Last Documented On 0 11:30AM ; [facility] colon, 2 foot surgeries, tim n pump placement,cateracts, kidney stones, colectomy, heartburn/acid reflux 06/08/2019 Last Documented On 9 3:01PM ; [facility] A previous fracture 06/08/2019 Last Documented On 9 3:01PM ; [facility] History of asthma 06/08/2019 Last Documented On 9 3:01PM ; [facility] History of osteoporosis 06/08/2019 Last Documented On 9 3:01PM ; [facility], [facility] Rheumatology history 06/08/2019 Last Documented On 9 3:01PM ; [facility] Thyroid disease 06/08/2019 Last Documented On 9 3:01PM ; [facility] A recent immunization for pneumococcal p neumonia 10/05/2014 03/23/2015 Last Documented On 5 10:01AM ; [facility] Arthritic joint problems 03/23/2015 Last Documented On 5 10:01AM ; [facility], [facility] Gallbladder disease 03/23/2015 Last Documented On 5 10:01AM ; [facility] History of depression 03/23/2015 Last Documented On 5 10:01AM ; [facility] Family History Includes: Family History in patient's chart Description Last Updated Stroke / Seizures 08/19/2022 Last Documented On 3 8:00AM ; [facility] Diabetes mellitus 07/09/2020 Last Documented On 0 11:30AM ; [facility] Family history of osteoporosis 0 Last Documented On 0 11:30AM ; [facility] Family history of rheumatoid arthritis 1 09/09/2019 Last Documented On 0 11:30AM ; [facility] Family history [use for free text] 01/09 Last Documented On 7 2:01PM ; [facility] Family history of cancer 01/09/2017 Last Documented On 7 2:01PM ; [facility] Family history of diabetes mellitus 04/2017 Last Documented On 7 2:01PM ; [facility] Family history of heart disease 01/10/20 17 Last Documented On 7 2:01PM ; [facility] Review of Systems Review of Systems not supported for this document type No Review of Systems Recorded Mental Status Description Anxiety Functional Status No Functional Status Recorded Physical Exam Physical Exam not supported for this document type No Physical Exam Recorded Immunizations Includes: Immunizations in patient's chart Vaccine Dose # Date Site Reaction(s) Status Source Influenza 1 05/03/2020 Complete (Reported) Patient Last Documented On 0 11:15AM ; [facility] PCV (Pneumovax 23) 1 08/03/1997 Complete ( Reported) Patient Last Documented On 0 11:15AM ; [facility] Allergies Includes: Active, inactive, and resolved Allergies Substance Type Reaction Onset Date Resolved Date Statu s OTHER Allergy meropenem 06/08/2019 Active Last Documented On 5 7:54AM ; [facility] Lyrica Allergy 03/23/2015 Active Last Documented On 5 7:54AM ; [facility] Keflex Allergy 03/23/2015 Active Last Documented On 5 7:54AM ; [facility] Erythromycin Allergy 03/23/2015 Active Last Documented On 5 7:54AM ; [facility] Codeine Sulfate Allergy 03/23/2015 Act ru Last Documented On 5 7:54AM ; [facility] Clindamycin HCl Allergy 06/08/2019 Act ru Last Documented On 5 7:54AM ; [facility] Cleocin Allergy 03/23/2015 Active Last Documented On 5 7:54AM ; [facility] Cephalexin Allergy 06/08/2019 Active Last Documented On 5 7:54AM ; [facility] Encounters Includes: Encounters from 11/11/2023 through 11/10/2024 Encounter Provider Location Date Check-In Time Check-Out Time Diagnosis NEW PROBLEM/EST PT Missael Avalos PA-C [facility] 11/08/19 25 7:53AM 8:45AM Overweight Insurance Includes: Active Insurance Policies Plan Name Member ID Group # Subscriber Relationship Effect ru Dates 1 - Medicare Part B [facility] [id number] Sandie Frank Self 05/03/2014 - Unknown 2 - [facility] [id number] Sandie Frank Self 08/03/2018 - Unknown Clinical Notes Includes: Signed Clinical Notes starting from 07/17/2022 * Progress note Date Encounter Last Documented by 11/07/2024 NEW PROBLEM/EST PT Last document ed on 11/07/2024; 8:50 AM, Missael Avalos PA-C; [facility] Active Problems & Conditions - Carpal Tunnel Syndrome - Joint Pain in Both Knees - Joint Pain in the Right Hip - Joint Pain, Localized in Both Shoulders - Joint Pain, Localized in the Shoulder - Right Forearm Bone Pain Chief Complaint The Chief Complaint is: Bilateral knee pain. Referred Here Referred by Sagar Eason. History of Present Illness Sandie Frank is a 69 year old female. - Allergy list reviewed - Problem list reviewed - Medication list reviewed - - Review of medications documented Current Medication - amLODIPine Besylate 5 MG Oral Tablet 30 days, 0 refills - busPIRone HCl 5 MG Oral Tablet 30 days, 0 refills - Cefdinir 300 MG Oral Capsule 5 days, 0 refills - Dantrolene Sodium 50 MG Oral Capsule 30 days, 0 refills - Donepezil HCl 23 MG Oral Tablet 30 days, 0 refills - DULoxetine HCl 60 MG Oral Capsule Delayed Release Particles 30 days, 0 refills - Emgality 120 MG/ML Subcutaneous Solution Auto-injector 30 days, 0 refills - Hydrocortisone 5 MG Oral Tablet 30 days, 0 refills - lamoTRIgine 100 MG Oral Tablet 30 days, 0 refills - Levothyroxine Sodium 88 MCG Oral Tablet 30 days, 0 refills - Linzess 72 MCG Oral Capsule 30 days, 0 refills - Memantine HCl 10 MG Oral Tablet 30 days, 0 refills - Montelukast Sodium 10 MG Oral Tablet 30 days, 0 refills - Nitrofurantoin Monohyd Macro 100 MG Oral Capsule 5 days, 0 refills - Pantoprazole Sodium 40 MG Oral Tablet Delayed Release 30 days, 0 refills - QUEtiapine Fumarate 300 MG Oral Tablet 30 days, 0 refills - Rosuvastatin Calcium 20 MG Oral Tablet 30 days, 0 refills - Trulance 3 MG Oral Tablet 30 days, 0 refills Past Medical/Surgical History Reported: History of Fractures. Medical: Rheumatology history. Thyroid disease, gallbladder disease, joint problems arthritic, and a fracture. Immunization History: Recent immunization for flu and for pneumococcal pneumonia 10/05/2014. Diagnoses: Asthma. Anemia. Anemia. History of Blood Transfusion Heartburn / Acid Reflux. Heartburn / Acid Reflux. Thyroid Disease. Thyroid Disease. Hypertension History of Rheumatology. Osteoporosis. Arthritis. Arthritis. Depression Colon, 2 foot surgeries, pain pump placement,cateracts, kidney stones, colectomy, heartburn/acid reflux. Surgical: - Appendectomy - Hysterectomy - Total hip replacement Social History Not a current smoker. Not a current smoker. Current diet: No recent change in diet. No recent change in diet. Caffeine use: Caffeine use. Tobacco use: No tobacco use and not a current smoker. Non-smoker. Smoking status: Never smoker. Alcohol: Not using alcohol. Drug Use: Not using drugs. Habits: Not exercising regularly. Allergies - Cephalexin - Cleocin - Clindamycin HCl - Codeine Sulfate - Erythromycin - Keflex - Lyrica - OTHER Reaction: meropenem Family History Cancer Heart disease Stroke / Seizures Diabetes mellitus family history [use for free text] Osteoporosis Diabetes mellitus Rheumatoid arthritis Review Of Systems Systemic: Not feeling tired, no recent weight loss, and no recent weight gain. No edema. Head: Headache. No sinus pain. Eyes: No vision problems and no glaucomatous visual field defect. No Cataracts. Glasses/Contacts. No Glaucoma. Otolaryngeal: Hearing loss and tinnitus. No nasal symptoms. Cardiovascular: No chest pain or discomfort, no palpitations, no Hypertension, and no High Cholesterol. Pulmonary: Daytime asthma symptoms. No cough and no chronic cough. Wheezing. Gastrointestinal: No heartburn and no abdominal pain. No Indigestion, no Peptic Ulcer, no GI Stomach Bleed, and no Ulcers. Acid Reflux. Endocrine: No hot flashes. Muscle weakness. No Diabetes. Hypothyroid. No Hyperthyroid. Hematologic: No easy bleeding and no tendency for easy bruising. Anemia. Musculoskeletal: Arthritis and lower back pain. No soft tissue swelling. Pain localized to one or more joints. Neurological: No dizziness. Convulsions. No numbness. Psychological: Anxiety. No emotional lability. Depression. No insomnia. Not crying for no reason. Skin: No dry skin. No Ulcers, no Scars, no rash, and no ulcers. Allergic and Immunologic: Complaint of seasonal allergic reaction. Physical Findings - Vitals taken 11/07/2024 07:56 am ab Height 67 in Weight 200 lbs Body Mass Index 31.3 kg/m2 Body Surface Area 2 m2 Patient alert and oriented Minimally overweight Unsteady gait with gait belt Right Hip ROM normal Right Knee Skin around knee clean, dry and intact 0- to 125- Crepitus with motion [No] MJT, [No] LJT, [No] Pes Tenderness Strength [5/5] TA, [5/5] Gastroc, [4/5] Quad Palpable pulses DP/PT Left Hip ROM normal Left Knee Skin around knee clean, dry and intact 0- to 125- Crepitus with motion [No] MJT, [No] LJT, [No] Pes Tenderness Strength [5/5] TA, [5/5] Gastroc, [4/5] Quad Palpable pulses DP/PT Tests Four views of the bilateral knees taken today demonstrates grade 1-2 changes of the lateral compartments with slight valgus deformities and periarticular osteophytes. Grade 4 DJD noted in the patellofemoral compartments and lateral patellar facets. Subchondral sclerosis present Assessment - Overweight Moderate bilateral knee DJD Primarily patellofemoral Therapy - Pt received screening for fall risk. Counseling/Education - Tobacco non-user - Use of tobacco assessment performed - Instructions for patient to see pcp for bp and wt - Lose weight Plan - Patient screened for future fall risk: documentation of any fall with injury in past year Fall Risk Assessment: This patient has been identified as a fall risk. Balance/gait along with postural blood pressure, vision and home fall hazards have been assessed. Medications have been reviewed, and recommendations made with regard to contributing factors for future falls. Plan of care: Consideration of vitamin D supplementation along with balance and strength training with consideration for formal physical therapy has been discussed with the patient. Patient underwent a relatively large spinal fusion at [facility] this past summer. This is 2nd or 3rd incidence after anesthesia with the patient has significant balance issues postoperatively. After her hip replacement in 2019 the patient was largely bed-bound uneven had to use a gait belt while sitting in a chair to keep her upright for about 3 months postoperatively. This has been the case after her most recent spinal surgery with a lot of being bed ridden in and out of rehab facilities working on improving her balance and starting to regain strength of the legs. Home health has started to have the patient doing sit to standing exercises cause some pain and giving way in the bilateral knees with the right being worse than left. X-rays demonstrates grade 4 patellofemoral changes. Due to the issues with anesthesia patient has a hesitant to undergo any further surgical intervention. At this point recommended cortisone injection in the right knee using a half dose as she has adrenal insufficiency is already on low dose corticosteroids 5 mg b.i.d.. Follow up in the office in 6 weeks The [RIGHT] knee was prepped with 3 betadine swabs and an alcohol swab. [1cc 40mg Kenolog mixed with Marcaine and lidocaine up to 5mL] were then injected into the knee with good fill, patient tolerated procedure well. Hemostasis was obtained with a band-aid. If no better in 6 weeks would consider bilateral knee hyaluronic acid injections Notes This dictation was done with voice recognition software and may contain errors and omissions. Practice Management Use of tobacco assessment performed. Care Team - LEOPOLDO TEJADA MD - DUCK OPERATOR
--- OUTSIDE RECORDS SUMMARY | 2024-11-10 21:45 | XMS_ITS | Clinical Summary ---
Author Organization [facility] , [facility] Address [address] [place] [address] Phone Care Team Providers Care Turn Out Name Role Phone TERRELL PHIPPS, LEOPOLDO Unavailable [phone] HARRIETT PHIPPS, EFFIE Koenig Primary Care Provider [phone] Yareli PHIPPS, Brian Shelton Unavailable [phone] Reason for Visit and Chief Complaint The Chief Complaint is: Bilateral knee pain Problems Includes: Problems addressed during this encounter and other active Problems Current Visit Onset Date Resolved Date Provider Conditio n Status Joint Pain in Both Knees 11/07/2024 Missael Avalos PA-C Active Last Documented On 5 7:54AM ; [facility], [facility] Past Visits Onset Date Resolved Date Provider Condition Status Joint Pain in the Right Hip 06/08/2019 Patrick Newton MD Active Last Documented On 9 1:19PM ; [facility], [facility] Joint Pain, Localized in Both Shoulders 08/20/2017 Giancarlo Wood MD Active Last Documented On 8 3:17PM ; [facility], [facility] Joint Pain, Localized in the Shoulder 06/17/2017 Amy Jimenez MD Active Last Documented On 7 8:45AM ; [facility], [facility] Right Forearm Bone Pain 01/09/2017 Amy rene MD Active Last Documented On 7 12:44PM ; [facility], [facility] Carpal Tunnel Syndrome 03/23/2015 Brian boss MD Active Last Documented On 5 10:36AM ; [facility], [facility] Plan of Treatment - Patient screened for future fall risk: documentation of any fall with injury in past year - Last Documented On 11/07/2024 8:50AM ; [facility] Fall Risk Assessment: This patient has been [...] therapy has been discussed with the patient. - Last Documented On 11/07/2024 8:50AM ; [facility] Patient underwent a relatively large spinal fusion at [facility] this past summer. This is 2nd or [...] would consider bilateral knee hyaluronic acid injections - Last Documented On 11/07/2024 8:50AM ; [facility], [facility] Future Appointments Date Time Location Provi brittanie Follow Up 12/19/2024 9:00AM [facility] Missael Avalos PA-C Last Documented On 8:49AM ; [facility], [facility] Instructions to patient Instructions for patient to see pcp for bp and wt Last Documented On 5 7:55AM ; [facility] Lose weight Last Documented On 5 7:55AM ; [facility], [facility] Assessments Includes: Assessments from this encounter Findings - Overweight - Last Documented On 11/07/2024 8:50AM ; [facility] Moderate bilateral knee DJD - Last Documented On 11/07/2024 8:50AM ; [facility] Primarily patellofemoral - Last Documented On 11/07/2024 8:50AM ; [facility] Instructions Includes: Instructions from this encounter Instructions to patient Instructions for patient to see pcp for bp and wt Last Documented On 5 7:55AM ; [facility], [facility] Lose weight Last Documented On 5 7:55AM ; [facility], [facility] Medical Equipment - Implanted Devices Includes: Current Devices No Medical Equipment Recorded Medications Includes: Medications discussed during this encounter and other current Medications Discontinued / Stopped on this date on 07/09/2020 Sodium Bicarbonate 325 MG Oral Tablet Pro vider: Diagnosis: Last Documented On 8:24AM By Kaylynn Philippe ; [facility], [facility] Hydrocortisone 5 MG Oral Tablet Provider: Diagnosis: Last Documented On 8:24AM By Kaylynn Philippe ; [facility], [facility] lamoTRIgine 100 MG Oral Tablet Provider: Diagnosis: Last Documented On 8:23AM By Kaylynn Philippe ; [facility], [facility] Levothyroxine Sodium 88 MCG Oral Tablet P rovider: Diagnosis: Last Documented On 5 8:24AM By Kaylynn Philippe ; [facility], [facility] Decara 1.25 MG (58781 UT) Oral Capsule Pr ovider: Diagnosis: Last Documented On 5 8:23AM By Kaylynn Philippe ; [facility], [facility] Magnesium 250 MG Oral Tablet Provider : Diagnosis: Last Documented On 8:23AM By Kaylynn Philippe ; [facility], [facility] Martínez Colon Health Oral Capsule Provid er: Diagnosis: Last Documented On 5 8:23AM By Kaylynn Philippe ; [facility], [facility] Stool Softener 100 MG Oral Capsule Pr ovider: Diagnosis: Last Documented On 5 8:23AM By Kaylynn Philippe ; [facility], [facility] Symbicort 160-4.5 MCG/ACT Inhalation Aerosol Provider: Diagnosis: Last Documented On 5 8:24AM By Kaylynn Philippe ; [facility], [facility] Albuterol Sulfate (2.5 MG/3M L) 0.083% Inhalation Nebulization solution Provider: Diagnosis: Last Documented On 5 8:23AM By Kaylynn Philippe ; [facility], [facility] Azelastine HCl 0.1% Nasal Solution Provid er: Diagnosis: Last Documented On 5 8:25AM By Kaylynn Philippe ; [facility], [facility] Budesonide 0.25 MG/2ML Inhalation Suspension Provider: Diagnosis: Last Documented On 5 8:25AM By Kaylynn Philippe ; [facility], [facility] rOPINIRole HCl 0.5 MG Oral Tablet Provide r: Diagnosis: Last Documented On 5 8:23AM By Kaylynn Philippe ; [facility], [facility] Memantine HCl 10 MG Oral Tablet Provider: Esther Mathew PA-C Diagnosis: Last Documented On 5 8:24AM By Kaylynn Philippe ; [facility], [facility] Advanced Probiotic Oral Capsule Provider: Diagnosis: Last Documented On 5 8:24AM By Kaylynn Philippe ; [facility], [facility] SEROquel 300 MG Oral Tablet Provider: Diagnosis: Last Documented On 5 8:25AM By Kaylynn Philippe ; [facility], [facility] Vitamin C 1000 MG Oral Tablet Provide r: Diagnosis: Last Documented On 5 8:24AM By Kaylynn Philippe ; [facility], [facility] raNITIdine HCl 150 MG Oral Capsule Provid er: Diagnosis: Last Documented On 5 8:25AM By Kaylynn Philippe ; [facility], [facility] Daily Multivitamin Oral Capsule Provider: Diagnosis: Last Documented On 5 8:24AM By Kaylynn Philippe ; [facility], [facility] Melatonin 10 MG Oral Capsule Provider : Diagnosis: Last Documented On 5 8:24AM By Kaylynn Philippe ; [facility], [facility] Montelukast Sodium 10 MG Oral Tablet Prov ider: Diagnosis: Last Documented On 5 8:25AM By Kaylynn Philippe ; [facility], [facility] Albuterol Sulfate (2.5 MG/3M L) 0.083% Inhalation Nebulization solution Provider: Diagnosis: Last Documented On 5 8:24AM By Kaylynn Philippe ; [facility], [facility] Alendronate Sodium 70 MG Oral Tablet Prov ider: Diagnosis: Last Documented On 5 8:24AM By Kaylynn Philippe ; [facility], [facility] Alrex 0.2% Ophthalmic Suspension Provider : Diagnosis: Last Documented On 5 8:24AM By Kaylynn Philippe ; [facility], [facility] amLODIPine Besylate 5 MG Oral Tablet Prov ider: Diagnosis: Last Documented On 5 8:24AM By Kaylynn Philippe ; [facility], [facility] Biotin 14320 MCG Oral Tablet Provider: Diagnosis: Last Documented On 5 8:24AM By Kaylynn Philippe ; [facility], [facility] Budesonide 0.25 MG/2ML Inhalation Suspension Provider: Diagnosis: Last Documented On 5 8:24AM By Kaylynn Philippe ; [facility], [facility] Crestor 20 MG Oral Tablet Provider: Diagnosis: Last Documented On 5 8:25AM By Kaylynn Philippe ; [facility], [facility] Cymbalta 30 MG Oral Capsule Delayed Release Particles Provider: Diagnosis: Last Documented On 5 8:24AM By aKylynn Philippe ; [facility], [facility] Cymbalta 60 MG Oral Capsule Delayed Release Particles Provider: Diagnosis: Last Documented On 5 8:25AM By Kaylynn Philippe ; [facility], [facility] Donepezil HCl 10 MG Oral Tablet Provider: Diagnosis: Last Documented On 5 8:24AM By Kaylynn Philippe ; [facility], [facility] Flax Seed Oil 1000 MG Oral Capsule Provid er: Diagnosis: Last Documented On 5 8:25AM By Kaylynn Philippe ; [facility], [facility] Fluticasone Furoate 100 MCG/ ACT Inhalation Aerosol Powder Breath Activated Provider: Diagnosis: Last Documented On 5 8:25AM By Kaylynn Philippe ; [facility], [facility] Hydrocortisone 5 MG Oral Tablet Provider: Diagnosis: Last Documented On 5 8:25AM By Kaylynn Philippe ; [facility], [facility] EQ Hydrocortisone 1% External Cream Provi brittanie: Diagnosis: Last Documented On 5 8:25AM By Kaylynn Philippe ; [facility], [facility] lamoTRIgine 100 MG Oral Tablet Provider: Diagnosis: Last Documented On 5 8:25AM By Kaylynn Philippe ; [facility], [facility] Lunesta 3 MG Oral Tablet Provider: Diagnosis: Last Documented On 5 8:25AM By Kaylynn Philippe ; [facility], [facility] EQL Lutein 20 MG Oral Capsule Provider: Diagnosis: Last Documented On 5 8:25AM By Kaylynn Philippe ; [facility], [facility] Vitamin D3 82921 UNIT Oral Capsule Pr ovider: Diagnosis: Last Documented On 5 8:24AM By Kaylynn Philippe ; [facility], [facility] Current Medications (continue as prescribed) QUEtiapine Fumarate 300 MG Oral Tablet 11/04/2024 Pr ovider: Diagnosis: Last Documented On 5 8:26AM By Kaylynn Philippe ; [facility], [facility] amLODIPine Besylate 5 MG Oral Tablet 11/04/2024 Prov ider: LEOPOLDO TEJADA MD Diagnosis: Last Documented On 5 8:26AM By Kaylynn Philippe ; [facility], [facility] Rosuvastatin Calcium 20 MG Oral Tablet 11/01/2024 Pr ovider: THOMPSON GOSS MD Diagnosis: Last Documented On 5 8:26AM By Kaylynn Philippe ; [facility], [facility] DULoxetine HCl 60 MG Oral Capsule Delayed Releas e Particles 10/28/2024 Provider: Diagnosis: Last Documented On 5 8:26AM By Kaylynn Phiilppe ; [facility], [facility] Donepezil HCl 23 MG Oral Tablet 10/25/2024 Provider: Esther Mathew PA-C Diagnosis: Last Documented On 5 8:26AM By Kaylynn Philippe ; [facility] Trulance 3 MG Oral Tablet 10/23/2024 Provider: YAKOV DIXON MD Diagnosis: Last Documented On 5 8:26AM By Kaylynnchavo Philippe ; [facility] Memantine HCl 10 MG Oral Tablet 10/22/2024 Provider: Esther Mathew PA-C Diagnosis: Last Documented On 5 8:26AM By Kaylynn Philippe ; [facility] lamoTRIgine 100 MG Oral Tablet 10/22/2024 Provider: Esther Mathew PA-C Diagnosis: Last Documented On 5 8:26AM By Kaylynn Philippe ; [facility], [facility] Montelukast Sodium 10 MG Oral Tablet 10/18/2024 Prov ider: Diagnosis: Last Documented On 5 8:26AM By Kaylynn Philippe ; [facility], [facility] Nitrofurantoin Monohyd Macro 100 MG Oral Capsule 10/17/2024 Provider: Maggi zimmer APRN Diagnosis: Last Documented On 5 8:26AM By Kaylynn Philippe ; [facility], [facility] Levothyroxine Sodium 88 MCG Oral Tablet 10/14/2024 P elena: LEOPOLDO TEJADA MD Diagnosis: Last Documented On 5 8:26AM By Kaylynn Philippe ; [facility], [facility] Dantrolene Sodium 50 MG Oral Capsule 10/13/2024 Prov ider: Suzan Sanchez MD Diagnosis: Last Documented On 5 8:26AM By Kaylynn Philippe ; [facility], [facility] Emgality 120 MG/ML Subcutane ous Solution Auto-injector 10/10/2024 Provider: Esther Mathew PA-C Diagnosis: Last Documented On 5 8:26AM By Kaylynn Philippe ; [facility] Pantoprazole Sodium 40 MG Or al Tablet Delayed Release 10/07/2024 Provider: LEOPOLDO TEJADA MD Diagnosis: Last Documented On 5 8:26AM By Kaylynn Philippe ; [facility] busPIRone HCl 5 MG Oral Tablet 10/04/2024 Provider: Suzan Sanchez MD Diagnosis: Last Documented On 5 8:26AM By Kaylynn Philippe ; [facility] Linzess 72 MCG Oral Capsule 10/03/2024 Provider: Maggi Crawford APRN Diagnosis: Last Documented On 5 8:26AM By Kaylynn Philippe ; [facility] Hydrocortisone 5 MG Oral Tablet 09/29/2024 Provider: LEOPOLDO TEJADA MD Diagnosis: Last Documented On 5 8:26AM By Kaylynn Philippe ; [facility] Cefdinir 300 MG Oral Capsule 09/29/2024 Provider: Diagnosis: Last Documented On 5 8:26AM By Kaylynn Philippe ; [facility], [facility] Past Medications on file Zofran 4 MG Oral Tablet 07/20/2019 - 07/25/2019 Provid er: Patrick Newton MD Diagnosis: 0vpx2-0s DO NOT FILL TILL 07/22/19 FOR SURGERY Last Documented On 9 12:44PM By Pat Oneil ; [facility] Colace 100 MG Oral Capsule 07/20/2019 - 10/18/2019 Provider: Patrick marsh MD Diagnosis: 1-2 tabs daily DO NOT FILL TILL 07/22/19 FOR SURGERY Last Documented On 9 12:44PM By Pat Oneil ; [facility] Neurontin 300 MG Oral Capsule 07/20/2019 - 10/18/2019 Provider: Patrick marsh MD Diagnosis: 1 every bedtime DO NOT ZEENAT L TILL 07/22/19 FOR SURGERY Last Documented On 9 12:34PM By Pat Oneil ; [facility] Dilaudid 2 MG Oral [...] By Pat Oneil ; [facility] Mupirocin 2% External Ointment 06/20/2019 - 06/25/2019 Provider: Patrick marsh MD Diagnosis: three times a day Apply to n ostrils 3 time a day 5 days prior to surgery. Last Documented On 9 1:10PM By Sushma Miller ; [facility] Cyclobenzaprine HCl 5MG Oral Tablet 08/20/2017 - 10/19/2017 Provider: Giancarlo Wood MD Diagnosis: Take 1 tablet every 8 hrs// Last Documented On 8 4:16PM By Yelena Call ; [facility] Cyclobenzaprine HCl 5MG Oral Tablet 07/31/2017 - 09/29/2017 Provider: Amy gonzalez MD Diagnosis: Take 1 tablet every 8 hrs// Last Documented On 7 11:22AM By Sonia Lima ; [facility] [place] 5-325MG Oral Tablet 06/17/2017 - 07/17/2017 Prov ider: Ramone Staples MD Diagnosis: 1-2 every 4-6 hours as needed Last Documented On 7 9:20AM By Shelly Sood ; [facility] Voltaren 1 % Gel 03/25/2017 - 04/24/2017 Provider: Amy Jimenez MD Diagnosis: four times a day Last Documented On 7 10:06AM By Viktoria Chopra ; [facility] Flector 1.3 % Patch 03/25/2017 - 04/24/2017 Provider: Amy Jimenez MD Diagnosis: once a day Last Documented On 7 10:06AM By Viktoria Chopra ; [facility] [place] 10-325 MG Tablet 03/25/2017 - 04/24/2017 Provide r: Amy Jimenez MD Diagnosis: 1-2 po q 4-6h prn Last Documented On 7 9:59AM By Viktoria Chopra ; [facility] CeleXA 20 MG Tablet 02/25/2017 - 03/27/2017 Provider: Amy Jimenez MD Diagnosis: once a day Last Documented On 7 10:27AM By Haven Mancuso ; [facility] Flector 1.3 % Patch 02/25/2017 - 04/26/2017 Provider: Amy Jimenez MD Diagnosis: apply patch to affected area BID or as needed Last Documented On 7 9:57AM By Viktoria Chopra ; [facility] [place] 10-325 MG Tablet 02/25/2017 - 03/07/2017 Provide r: Amy Jimenez MD Diagnosis: 1-2 po q 4-6h prn Last Documented On 7 9:53AM By Viktoria Chopra ; [facility] [place] 10-325 MG Tablet 01/09/2017 - 01/19/2017 Provide r: Amy Jimenez MD Diagnosis: 1-2 po q 4-6h prn/jkp Last Documented On 7 1:10PM By Haven Mancuso ; [facility] Medications Administered Includes: Administered Medications from this encounter No Administered Medications Recorded Vital Signs Includes: Vital Signs from this encounter Vital Name 11/07/2024 07:56A Height (in) 67 Weight (lb) 200 Body Mass Index 31.3 Body Surface Area 2 Note: ab Last Documented: On 11/07/2024 7:56AM ; [facility] Results Includes: Results discussed during this encounter No Results Recorded For Specified Dates History of Present Illness Includes: History of Present Illness from this encounter GABRIEL Frank is a 69 year old female. - Allergy list reviewed - Problem list reviewed - Medication list reviewed - - Review of medications documented Social History Description Last Updated No recent change in diet 08/19/2022 Last Documented On 5 7:55AM ; [facility] Not a current smoker. 08/19/2022 Last Documented On 5 7:55AM ; [facility] Non-smoker 07/09/2020 Last Documented On 5 7:55AM ; [facility] Not a current smoker. 07/09/2020 Last Documented On 5 7:55AM ; [facility] No tobacco use 04/23/2015 Last Documented On 5 7:55AM ; [facility] Smoking status : Never smoker 04/23/2015 Last Documented On 5 7:55AM ; [facility] Caffeine use 03/23/2015 Last Documented On 5 7:55AM ; [facility] No recent change in diet 03/23/2015 Last Documented On 5 7:55AM ; [facility] Not a current smoker 03/23/2015 Last Documented On 5 7:55AM ; [facility] Not exercising regularly 03/23/2015 Last Documented On 5 7:55AM ; [facility] Not using alcohol 03/23/2015 Last Documented On 5 7:55AM ; [facility] Not using drugs 03/23/2015 Last Documented On 5 7:55AM ; [facility] Procedures and Surgical History Includes: Procedures from this encounter Procedures Code Diagnosis Performing Provider Service Location Service Date DRAIN/INJECT, JOINT/BURSA (RIGHT) 47561 Unilateral primary osteoarthritis, right knee Missael Bailey [facility] 11/07/2024 Last Documented On 5 7:26AM ; [facility] Triamcinolone/Kenalog, 10mg per cc [id number] Unilateral primary osteoarthritis, right knee Missael Bailey [facility] 11/07/2024 Last Documented On 5 7:26AM ; [facility] X-RAY EXAM KNEE 4 OR MORE (Bilateral Procedure) 50969 Bilateral primary osteoarthritis of knee Missael [facility] 11/07/2024 Last Documented On 5 7:26AM ; [facility] use of tobacco assessment performed 1000F Last Documented On 5 7:55AM ; [facility] Pt received screening for fall risk [id number] Last Documented On 5 7:55AM ; [facility] Surgical History Last Updated History of total hip replacement 023 Last Documented On 5 7:55AM ; [facility] History of appendectomy 03/23/2015 Last Documented On 5 7:55AM ; [facility] History of hysterectomy 03/23/2015 Last Documented On 5 7:55AM ; [facility] Medical History Includes: Medical History addressed during this encounter Description Last Updated History of Anemia 08/19/2022 Last Documented On 5 7:55AM ; [facility] History of arthritis 08/19/2022 Last Documented On 5 7:55AM ; [facility] History of Fractures 08/19/2022 Last Documented On 5 7:55AM ; [facility] History of Heartburn / Acid Reflux 08/19 Last Documented On 5 7:55AM ; [facility] History of Thyroid Disease 08/19/2022 Last Documented On 5 7:55AM ; [facility] Anemia 07/09/2020 Last Documented On 5 7:55AM ; [facility] Arthritis 07/09/2020 Last Documented On 5 7:55AM ; [facility] Heartburn / Acid Reflux 07/09/2020 Last Documented On 5 7:55AM ; [facility] History of Blood Transfusion 07/09/2020 Last Documented On 5 7:55AM ; [facility] History of Rheumatology 07/09/2020 Last Documented On 5 7:55AM ; [facility] Hypertension 07/09/2020 Last Documented On 5 7:55AM ; [facility] Thyroid Disease 07/09/2020 Last Documented On 5 7:55AM ; [facility] A recent immunization for flu 07/09/2020 Last Documented On 5 7:55AM ; [facility] colon, 2 foot surgeries, tim n pump placement,cateracts, kidney stones, colectomy, heartburn/acid reflux 06/08/2019 Last Documented On 5 7:55AM ; [facility] A previous fracture 06/08/2019 Last Documented On 5 7:55AM ; [facility] History of asthma 06/08/2019 Last Documented On 5 7:55AM ; [facility] History of osteoporosis 06/08/2019 Last Documented On 5 7:55AM ; [facility] Rheumatology history 06/08/2019 Last Documented On 5 7:55AM ; [facility] Thyroid disease 06/08/2019 Last Documented On 5 7:55AM ; [facility] A recent immunization for pneumococcal p neumonia 10/05/2014 03/23/2015 Last Documented On 5 7:55AM ; [facility] Arthritic joint problems 03/23/2015 Last Documented On 5 7:55AM ; [facility] [facility], [facility] Gallbladder disease 03/23/2015 Last Documented On 5 7:55AM ; [facility], [facility] History of depression 03/23/2015 Last Documented On 5 7:55AM ; [facility], [facility] Family History Includes: Family History addressed during this encounter Description Last Updated Stroke / Seizures 08/19/2022 Last Documented On 5 7:55AM ; [facility] Diabetes mellitus 07/09/2020 Last Documented On 5 7:55AM ; [facility] Family history of osteoporosis 0 Last Documented On 5 7:55AM ; [facility], [facility] Family history of rheumatoid arthritis 1 09/09/2019 Last Documented On 5 7:55AM ; [facility] Family history [use for free text] 01/09 Last Documented On 5 7:55AM ; [facility] Family history of cancer 01/09/2017 Last Documented On 5 7:55AM ; [facility] Family history of diabetes mellitus 04/2017 Last Documented On 5 7:55AM ; [facility] Family history of heart disease 01/10/20 17 Last Documented On 5 7:55AM ; [facility] Review of Systems Includes: Review of Systems from this encounter Systemic: Not feeling tired, no recent weight [...] Active Last Documented On 5 7:54AM ; [facility], [facility] Lyrica Allergy 03/23/2015 Active Last Documented On 5 7:54AM ; [facility], [facility] Keflex Allergy 03/23/2015 Active Last Documented On 5 7:54AM ; [facility], [facility] Erythromycin Allergy 03/23/2015 Active Last Documented On 5 7:54AM ; [facility], [facility] Codeine Sulfate Allergy 03/23/2015 Act ru Last Documented On 5 7:54AM ; [facility] Clindamycin HCl Allergy 06/08/2019 Act ru Last Documented On 5 7:54AM ; [facility] Cleocin Allergy 03/23/2015 Active Last Documented On 5 7:54AM ; [facility] Cephalexin Allergy 06/08/2019 Active Last Documented On 5 7:54AM ; [facility], [facility] Encounters Encounter Provider Location Date Check-In Time Check-Out Time Diagnosis NEW PROBLEM/EST PT Missael Avalos PA-C [facility] 11/08/19 25 7:53AM 8:45AM Overweight Insurance Includes: Active Insurance Policies Plan Name Member ID Group # Subscriber Relationship Effect ru Dates 1 - Medicare Part B [facility] [id number] Sandie Shelton Braxton Self 05/03/2014 - Unknown 2 - [facility] [id number] Sandie Shelton Braxton Self 08/03/2018 - Unknown Clinical Notes Includes: Clinical Notes from this encounter * Progress note Date Encounter Last Documented by 11/07/2024 NEW PROBLEM/EST PT Last document ed on 11/07/2024; 8:50 AM, Missael Avalos PA-C; [facility] Active Problems & Conditions - Carpal Tunnel Syndrome - Joint Pain in Both Knees - Joint Pain in the Right Hip - Joint Pain, Localized in Both Shoulders - Joint Pain, Localized in the Shoulder - Right Forearm Bone Pain Chief Complaint The Chief Complaint is: Bilateral knee pain. Referred Here Referred by Sagar Kidd. History of Present Illness Sandie Frank is [...] underwent a relatively large spinal fusion at [facility] this past summer. This is 2nd or [...] Care Team - LEOPOLDO TEJADA MD - [employer] OPERATOR
--- OUTSIDE RECORDS SUMMARY | 2024-11-10 21:45 | XMS_ITS | Clinical Summary ---
Author Organization [facility] Address [address] [place] [address] Phone Care Team Providers Care Button Riveter Name Role Phone TERRELL PHIPPS, LEOPOLDO Unavailable [phone] HARRIETT PHIPPS, EFFIE Koenig Primary Care Provider [phone] Yareli PHIPPS, Brian Shelton Unavailable [phone] Reason for Visit and Chief Complaint The Chief Complaint is: right hip pain Problems Includes: Problems addressed during this encounter and other active Problems All Visits Onset Date Resolved Date Provider Condition S tatus Joint Pain in Both Knees 11/07/2024 Missael Avalos PA-C Active Last Documented On 5 7:54AM ; [facility] Joint Pain in the Right Hip 06/08/2019 Evelia Newton MD Active Last Documented On 9 1:19PM ; [facility] Joint Pain, Localized in Both Shoulders 08/20/2017 Giancarlo Wood MD Active Last Documented On 8 3:17PM ; [facility] Joint Pain, Localized in the Shoulder 06/17/2017 Amy Jimenez MD Active Last Documented On 7 8:45AM ; [facility] Right Forearm Bone Pain 01/09/2017 Amy rene MD Active Last Documented On 7 12:44PM ; [facility] Carpal Tunnel Syndrome 03/23/2015 Brian boss MD Active Last Documented On 5 10:36AM ; [facility] Plan of Treatment Patient was doing fairly well. She is to continue with ad leodan. activity and follow-up in the office in 3-5 years or when necessary - Last Documented On 07/09/2020 11:30AM ; [facility] Future Appointments Date Time Location Provi brittanie Follow Up 12/19/2024 9:00AM [facility] Missael Avalos PA-C Last Documented On 5 8:49AM ; [facility] Instructions to patient Instructions for patient to see pcp for bp and wt Last Documented On 0 10:19AM ; [facility] Lose weight Last Documented On 0 10:19AM ; [facility] Assessments Includes: Assessments from this encounter Findings One year postop right anterior total hip - Last Documented On 07/09/2020 11:30AM ; [facility], [facility] Instructions Includes: Instructions from this encounter Instructions to patient Instructions for patient to see pcp for bp and wt Last Documented On 0 10:19AM ; [facility], [facility] Lose weight Last Documented On 0 10:19AM ; [facility] Medical Equipment - Implanted Devices Includes: Current Devices No Medical Equipment Recorded Medications Includes: Medications discussed during this encounter and other current Medications Discontinued / Stopped on this date on 06/08/2019 Restasis 0.05% Ophthalmic Emulsion Provid er: Diagnosis: Last Documented On 0 11:01AM By Sandra Mack ; [facility] Ventolin HFA 108 (90 Base) MCG/ACT Inhalation Aerosol Solution Provider: Diagnosis: Last Documented On 0 10:58AM By Sandra Mack ; [facility] Metoprolol Tartrate 10 MG/ML Oral Solution Provider: Diagnosis: Last Documented On 0 10:56AM By Sandra Villanueva [facility] Gabapentin 100 MG Oral Capsule Provider: Diagnosis: Last Documented On 0 11:00AM By Sandra Mack ; [facility] Levothyroxine Sodium 100 MCG Oral Capsule Provider: Diagnosis: Last Documented On 0 10:57AM By Sandra Mack ; [facility] Current Medications (continue as prescribed) QUEtiapine Fumarate 300 MG Oral Tablet 11/04/2024 Pr ovider: Diagnosis: Last Documented On 5 8:26AM By Kaylynn Philippe ; [facility] amLODIPine Besylate 5 MG Oral Tablet 11/04/2024 Prov ider: LEOPOLDO TEJADA MD Diagnosis: Last Documented On 5 8:26AM By Kaylynn Philippe ; [facility] Rosuvastatin Calcium 20 MG Oral Tablet 11/01/2024 Pr ovider: THOMPSON GOSS MD Diagnosis: Last Documented On 5 8:26AM By Kaylynn Philippe ; [facility] DULoxetine HCl 60 MG Oral Capsule Delayed Releas e Particles 10/28/2024 Provider: Diagnosis: Last Documented On 5 8:26AM By Kaylynn Philippe ; [facility] Donepezil HCl 23 MG Oral Tablet 10/25/2024 Provider: Esther Mathew PA-C Diagnosis: Last Documented On 5 8:26AM By Kaylynn Philippe ; [facility] Trulance 3 MG Oral Tablet 10/23/2024 Provider: YAKOV DIXON MD Diagnosis: Last Documented On 5 8:26AM By Kaylynn Philippe ; [facility] Memantine HCl 10 MG Oral Tablet 10/22/2024 Provider: Esther Mathew PA-C Diagnosis: Last Documented On 5 8:26AM By Kaylynn Philippe ; [facility] lamoTRIgine 100 MG Oral Tablet 10/22/2024 Provider: Esther Mathew PA-C Diagnosis: Last Documented On 5 8:26AM By Kaylynn Philippe ; [facility] Montelukast Sodium 10 MG Oral Tablet 10/18/2024 Prov ider: Diagnosis: Last Documented On 5 8:26AM By Kaylynn Philippe ; [facility] Nitrofurantoin Monohyd Macro 100 MG Oral Capsule 10/17/2024 Provider: Maggi zimmer APRN Diagnosis: Last Documented On 5 8:26AM By Kaylynn Philippe ; [facility] Levothyroxine Sodium 88 MCG Oral Tablet 10/14/2024 P rovider: LEOPOLDO TEJADA MD Diagnosis: Last Documented On 5 8:26AM By Kaylynnchavo Philippe ; [facility] Dantrolene Sodium 50 MG Oral Capsule 10/13/2024 Prov ider: Suzan Sanchez MD Diagnosis: Last Documented On 5 8:26AM By Kaylynnchavo Philippe ; [facility] Emgality 120 MG/ML Subcutane ous Solution Auto-injector 10/10/2024 Provider: Esther Mathew PA-C Diagnosis: Last Documented On 5 8:26AM By Kaylynn Philippe ; [facility] Pantoprazole Sodium 40 MG Or al Tablet Delayed Release 10/07/2024 Provider: LEOPOLDO TEJADA MD Diagnosis: Last Documented On 5 8:26AM By Kaylynn Philippe ; [facility] busPIRone HCl 5 MG Oral Tablet 10/04/2024 Provider: Suzan Sanchez MD Diagnosis: Last Documented On 5 8:26AM By Kaylynn Philippe ; [facility] Linzess 72 MCG Oral Capsule 10/03/2024 Provider: Maggi Crawford APRN Diagnosis: Last Documented On 5 8:26AM By Kaylynn Philippe ; [facility] Hydrocortisone 5 MG Oral Tablet 09/29/2024 Provider: LEOPOLDO TEJADA MD Diagnosis: Last Documented On 5 8:26AM By Kaylynn Philippe ; [facility] Cefdinir 300 MG Oral Capsule 09/29/2024 Provider: Diagnosis: Last Documented On 5 8:26AM By Kaylynn Philippe ; [facility] Past Medications on file Zofran 4 MG Oral Tablet 07/20/2019 - 07/25/2019 Provid er: Patrick Newton MD Diagnosis: [id number] DO NOT FILL TILL 07/22/19 FOR SURGERY Last Documented On 9 12:44PM By Pta Oneil ; [facility] Colace 100 MG Oral Capsule 07/20/2019 - 10/18/2019 Provider: Patrick marsh MD Diagnosis: 1-2 tabs daily DO NOT FILL TILL 07/22/19 FOR SURGERY Last Documented On 9 12:44PM By Pat Oneil ; [facility] Neurontin 300 MG Oral Capsule 07/20/2019 - 10/18/2019 Provider: Patrick marsh MD Diagnosis: 1 every bedtime DO NOT ZEENAT L TILL 07/22/19 FOR SURGERY Last Documented On 9 12:34PM By Pat Oneil ; [facility] Dilaudid 2 MG Oral Tablet 07/20/2019 - 07/22/2019 Provider: Patrick marsh MD Diagnosis: 1-2 po q6h prn pain (RESCUE PAIN)DO NOT FILL TILL 07/22/19 FOR SURGERY Last Documented On 9 12:37PM By Pat Oneil ; [facility] Acetaminophen 500 MG Oral Tablet 07/20/2019 - 08/19/2019 Provider: Patrick Newton MD Diagnosis: 2 three times a day DO NOT FILL TILL 07/22/19 FOR SURGERY Last Documented On 9 12:44PM By Pat Oneil ; [facility] traMADol HCl 50 MG Oral Tablet 07/20/2019 - 07/25/2019 Provider: Patrick marsh MD Diagnosis: 1-2 po q6h prn pain DO NOT FILL TILL 07/22/19 FOR SURGERY Last Documented On 9 12:34PM By Pat Oneil ; [facility] oxyCODONE HCl 5 MG Oral Tablet 07/20/2019 - 07/25/2019 Provider: Patrick marsh MD Diagnosis: 1-2 po q6h prn pain DO NOT FILL TILL 07/22/19 FOR SURGERY Last Documented On 9 12:34PM By Pat Oneil ; [facility] Mupirocin 2% External Ointment 06/20/2019 - 06/25/2019 Provider: Patrick marsh MD Diagnosis: three times a day Apply to n ostrils 3 time a day 5 days prior to surgery. Last Documented On 9 1:10PM By Sushma Miller ; [facility] Cyclobenzaprine HCl 5MG Oral Tablet 08/20/2017 - 10/19/2017 Provider: Giancarlo Wood MD Diagnosis: Take 1 tablet every 8 hrs// Last Documented On 8 4:16PM By Yelena Call ; [facility] Cyclobenzaprine HCl 5MG Oral Tablet 07/31/2017 - 09/29/2017 Provider: Amy gonzalez MD Diagnosis: Take 1 tablet every 8 hrs// Last Documented On 7 11:22AM By Sonia Lima ; [facility] Cost 5-325MG Oral Tablet 06/17/2017 - 07/17/2017 Prov ider: Ramone Staples MD Diagnosis: 1-2 every 4-6 hours as needed Last Documented On 7 9:20AM By Shelly Sood ; [facility] Voltaren 1 % Gel 03/25/2017 - 04/24/2017 Provider: Amy Jimenez MD Diagnosis: four times a day Last Documented On 7 10:06AM By Viktoria Chopra ; [facility] Flector 1.3 % Patch 03/25/2017 - 04/24/2017 Provider: Amy Jimenez MD Diagnosis: once a day Last Documented On 7 10:06AM By Viktoria Chopra ; [facility] Cost 10-325 MG Tablet 03/25/2017 - 04/24/2017 Provide r: Amy Jimenez MD Diagnosis: 1-2 po q 4-6h prn Last Documented On 7 9:59AM By Viktoria Chopra ; [facility] CeleXA 20 MG Tablet 02/25/2017 - 03/27/2017 Provider: Amy Jimenez MD Diagnosis: once a day Last Documented On 7 10:27AM By Haven Mancuso ; [facility] Flector 1.3 % Patch 02/25/2017 - 04/26/2017 Provider: Amy Jimenez MD Diagnosis: apply patch to affected area BID or as needed Last Documented On 7 9:57AM By Viktoria Chopra ; [facility] Cost 10-325 MG Tablet 02/25/2017 - 03/07/2017 Provide r: Amy Jimenez MD Diagnosis: 1-2 po q 4-6h prn Last Documented On 7 9:53AM By Viktoria Chopra ; [facility] Cost 10-325 MG Tablet 01/09/2017 - 01/19/2017 Provide r: Amy Jimenez MD Diagnosis: 1-2 po q 4-6h prn/jkp Last Documented On 7 1:10PM By Haven Mancuso ; [facility] Medications Administered Includes: Administered Medications from this encounter No Administered Medications Recorded Vital Signs Includes: Vital Signs from this encounter Vital Name 07/09/2020 10:19A Blood Pressure Sitting (mmHg) 117/71 Pulse Rate-Sitting (bpm) 65 Height (in) 67 Weight (lb) 240 Body Mass Index (kg/m2) 37.6 Body Surface Area (m2) 2.2 Note: rj Last Documented: On 07/09/2020 10:55A M ; [facility] Results Includes: Results discussed during this encounter No Results Recorded For Specified Dates History of Present Illness Includes: History of Present Illness from this encounter GABRIEL Frank is a 64 year old female. - Allergy list reviewed - Medication list reviewed with patient - Medication reconciliation performed - No previous treatment. Social History Description Last Updated Non-smoker 07/09/2020 Last Documented On 0 11:30AM ; [facility] Not a current smoker. 07/09/2020 Last Documented On 0 11:30AM ; [facility] No tobacco use 04/23/2015 Last Documented On 0 10:19AM ; [facility] Smoking status : Never smoker 04/23/2015 Last Documented On 0 10:19AM ; [facility] Caffeine use 03/23/2015 Last Documented On 0 10:19AM ; [facility] No recent change in diet 03/23/2015 Last Documented On 0 10:19AM ; [facility] Not a current smoker 03/23/2015 Last Documented On 0 10:19AM ; [facility] Not exercising regularly 03/23/2015 Last Documented On 0 10:19AM ; [facility] Not using alcohol 03/23/2015 Last Documented On 0 10:19AM ; [facility] Not using drugs 03/23/2015 Last Documented On 0 10:19AM ; [facility] Procedures and Surgical History Includes: Procedures from this encounter Procedures Code Diagnosis Performing Provider Service L ocation Service Date use of tobacco assessment performed 1000F Last Documented On 0 10:19AM ; [facility] Pt received screening for fall risk G8270 Last Documented On 0 10:19AM ; [facility] history of an X-ray was performed [id number] Last Documented On 0 10:19AM ; [facility] history of an MRI was performed [id number] Last Documented On 0 10:19AM ; [facility] Surgical History Last Updated History of appendectomy 03/23/2015 Last Documented On 0 10:19AM ; [facility] History of hysterectomy 03/23/2015 Last Documented On 0 10:19AM ; [facility] Medical History Includes: Medical History addressed during this encounter Description Last Updated Anemia 07/09/2020 Last Documented On 0 11:30AM ; [facility] Arthritis 07/09/2020 Last Documented On 0 11:30AM ; [facility] Heartburn / Acid Reflux 07/09/2020 Last Documented On 0 11:30AM ; [facility] History of Blood Transfusion 07/09/2020 Last Documented On 0 11:30AM ; [facility] History of Rheumatology 07/09/2020 Last Documented On 0 11:30AM ; [facility] Hypertension 07/09/2020 Last Documented On 0 11:30AM ; [facility] Previous Fractures 07/09/2020 Last Documented On 0 11:30AM ; [facility] Thyroid Disease 07/09/2020 Last Documented On 0 11:30AM ; [facility] A recent immunization for flu 07/09/2020 Last Documented On 0 11:30AM ; [facility] Appendectomy 07/09/2020 Last Documented On 0 11:30AM ; [facility] Hysterectomy 07/09/2020 Last Documented On 0 11:30AM ; [facility] Total hip replacement 07/09/2020 Last Documented On 0 11:30AM ; [facility] colon, 2 foot surgeries, tim n pump placement,cateracts, kidney stones, colectomy, heartburn/acid reflux 06/08/2019 Last Documented On 0 10:19AM ; [facility] A previous fracture 06/08/2019 Last Documented On 0 10:19AM ; [facility] History of asthma 06/08/2019 Last Documented On 0 10:19AM ; [facility] History of osteoporosis 06/08/2019 Last Documented On 0 10:19AM ; [facility] Rheumatology history 06/08/2019 Last Documented On 0 10:19AM ; [facility] Thyroid disease 06/08/2019 Last Documented On 0 10:19AM ; [facility] A recent immunization for pneumococcal p neumonia 10/05/2014 03/23/2015 Last Documented On 0 10:19AM ; [facility] Arthritic joint problems 03/23/2015 Last Documented On 0 10:19AM ; [facility] Gallbladder disease 03/23/2015 Last Documented On 0 10:19AM ; [facility] History of depression 03/23/2015 Last Documented On 0 10:19AM ; [facility] Family History Includes: Family History addressed during this encounter Description Last Updated Diabetes mellitus 07/09/2020 Last Documented On 0 11:30AM ; [facility] Family history of osteoporosis 0 Last Documented On 0 11:30AM ; [facility] Family history of rheumatoid arthritis 1 09/09/2019 Last Documented On 0 11:30AM ; [facility] Family history of cancer 01/09/2017 Last Documented On 0 10:19AM ; [facility] Family history of diabetes mellitus 04/2017 Last Documented On 0 10:19AM ; [facility] Family history of heart disease 01/10/20 17 Last Documented On 0 10:19AM ; [facility] Review of Systems Includes: Review of Systems from this encounter Systemic: Not feeling tired (fatigue), no recent weight loss, and no recent weight gain. No edema. Head: Headache. No sinus pain. Eyes: No vision problems and no glaucomatous visual field defect. No Cataracts, no Glasses/Contacts, and no Glaucoma. Otolaryngeal: Hearing loss and tinnitus. No nasal symptoms. Cardiovascular: No chest pain or discomfort, no palpitations, no Hypertension, and no High Cholesterol. Pulmonary: Daytime asthma symptoms. No cough and no chronic cough. No wheezing. Gastrointestinal: No heartburn and no abdominal pain. No Indigestion, no Acid Reflux, no Peptic Ulcer, no GI Stomach Bleed, and no Ulcers. Endocrine: No hot flashes. Muscle weakness. No [...] Exam Includes: Physical Exam from this encounter Immunizations Includes: Immunizations addressed during this encounter Vaccine Dose # Date Site Reaction(s) Status Source Influenza 1 05/03/2020 Complete (Reported) Patient Last Documented On 0 11:15AM ; [facility] PCV (Pneumovax 23) 1 08/03/1997 Complete ( Reported) Patient Last Documented On 0 11:15AM ; [facility] Allergies Includes: Active Allergies Substance Type Reaction Onset Date Resolved Date Statu s OTHER Allergy meropenem 06/08/2019 Active Last Documented On 5 7:54AM ; [facility] Lyrica Allergy 03/23/2015 Active Last Documented On 5 7:54AM ; [facility] Keflex Allergy 03/23/2015 Active Last Documented On 5 7:54AM ; [facility] Erythromycin Allergy 03/23/2015 Active Last Documented On 5 7:54AM ; [facility] Codeine Sulfate Allergy 03/23/2015 Act ru Last Documented On 5 7:54AM ; [facility] Clindamycin HCl Allergy 06/08/2019 Act ru Last Documented On 5 7:54AM ; [facility] Cleocin Allergy 03/23/2015 Active Last Documented On 5 7:54AM ; [facility] Cephalexin Allergy 06/08/2019 Active Last Documented On 5 7:54AM ; [facility] Encounters Encounter Provider Location Date Check-In Time Check-Out Time Diagnosis Follow Up Patrick Newton [facility] 07/09/20 20 10:18AM 11:30AM Insurance Includes: Active Insurance Policies Plan Name Member ID Group # Subscriber Relationship Effect ru Dates 1 - Medicare Part B [facility] [id number] Sandie Shelton [place] Self 05/03/2014 - Unknown 2 - [facility] [id number] Sandie Shelton [place] Self 08/03/2018 - Unknown Clinical Notes Includes: Clinical Notes from this encounter No Clinical Notes Recorded
--- OUTSIDE RECORDS SUMMARY | 2024-11-10 21:45 | XMS_ITS | Clinical Summary ---
Author Organization [facility] Address [address] [place] [address] Phone Care Team Providers Care Energy And Conservation Technician Name Role Phone TERRELL PHIPPS, LEOPOLDO Unavailable [phone] HARRIETT PHIPPS, EFFIE Koenig Primary Care Provider [phone] Yareli PHIPPS, Brian Shelton Unavailable [phone] Reason for Visit and Chief Complaint The Chief Complaint is: right hip pain Problems Includes: Problems addressed during this encounter and other active Problems All Visits Onset Date Resolved Date Provider Condition S tatus Joint Pain in Both Knees 11/07/2024 Missael Avalos PA-C Active Last Documented On 5 7:54AM ; [facility], [facility] Joint Pain in the Right Hip 06/08/2019 Evelia Newton MD Active Last Documented On 9 1:19PM ; [facility] Joint Pain, Localized in Both Shoulders 08/20/2017 Giancarlo Wood MD Active Last Documented On 8 3:17PM ; [facility] Joint Pain, Localized in the Shoulder 06/17/2017 Amy Jimenez MD Active Last Documented On 7 8:45AM ; [facility] Right Forearm Bone Pain 01/09/2017 Amy rene MD Active Last Documented On 7 12:44PM ; [facility] Carpal Tunnel Syndrome 03/23/2015 Brian boss MD Active Last Documented On 5 10:36AM ; [facility] Plan of Treatment Fall Risk Assessment: This patient has been [...] with the patient. - Last Documented On 08/21/2022 8:00AM ; [facility] patient states she has been doing well since her index operation. Over the last few months is noticing a catching in the lateral aspect of the right hip as well as tenderness to palpation. X-rays demonstrates well fixed well-positioned hip arthroplasty. Exam demonstrates notably poor balance on exam. Tender to palpation over the greater trochanter. Some discomfort with internal and external rotation. Recommended physical therapy for right hip bursitis and gluteal tendinitis prior to follow-up in 3-4 months for consideration of injection if needed - Last Documented On 08/21/2022 8:00AM ; [facility] Pending Tests Order Diagnosis Results Due Ordering P elena Therapy - Physical Therapy Knee 08/19/22 Missael Avalos PA-C Last Documented On 3 3:56PM ; [facility] Future Appointments Date Time Location Provi brittanie Follow Up 12/19/2024 9:00AM [facility] Missael Avalos PA-C Last Documented On 5 8:49AM ; [facility] Instructions to patient Instructions for patient to see pcp for bp and wt Last Documented On 3 2:49PM ; [facility] Lose weight Last Documented On 3 2:49PM ; [facility] Assessments Includes: Assessments from this encounter Findings right total hip arthroplasty late 2018 - Last Documented On 08/21/2022 8:00AM ; [facility] Right hip bursitis and gluteal tendinitis - Last Documented On 08/21/2022 8:00AM ; [facility] Instructions Includes: Instructions from this encounter Instructions to patient Instructions for patient to see pcp for bp and wt Last Documented On 3 2:49PM ; [facility] Lose weight Last Documented On 3 2:49PM ; [facility] Medical Equipment - Implanted Devices Includes: Current Devices No Medical Equipment Recorded Medications Includes: Medications discussed during this encounter and other current Medications Current Medications (continue as prescribed) QUEtiapine Fumarate 300 MG Oral Tablet 11/04/2024 Pr ovider: Diagnosis: Last Documented On 5 8:26AM By Kaylynn Philippe ; [facility], [facility] amLODIPine Besylate 5 MG Oral Tablet 11/04/2024 Prov ider: LEOPOLDO TEJADA MD Diagnosis: Last Documented On 5 8:26AM By Kaylynn Philippe ; [facility], [facility] Rosuvastatin Calcium 20 MG Oral Tablet 11/01/2024 Pr ovider: THOMPSON GOSS MD Diagnosis: Last Documented On 5 8:26AM By Kaylynn Philippe ; [facility], [facility] DULoxetine HCl 60 MG Oral Capsule Delayed Releas e Particles 10/28/2024 Provider: Diagnosis: Last Documented On 5 8:26AM By Kaylynn Philippe ; [facility] Donepezil HCl 23 MG Oral Tablet 10/25/2024 Provider: Esther Mathew PA-C Diagnosis: Last Documented On 5 8:26AM By Kaylynn Philippe ; [facility] Trulance 3 MG Oral Tablet 10/23/2024 Provider: YAKOV DIXON MD Diagnosis: Last Documented On 5 8:26AM By Kaylynn Philippe ; [facility], [facility] Memantine HCl 10 MG Oral Tablet 10/22/2024 Provider: Esther Mathew PA-C Diagnosis: Last Documented On 5 8:26AM By Kaylynn Philippe ; [facility], [facility] lamoTRIgine 100 MG Oral Tablet 10/22/2024 Provider: Esther Mathew PA-C Diagnosis: Last Documented On 5 8:26AM By Kaylynn Philippe ; [facility], [facility] Montelukast Sodium 10 MG Oral Tablet 10/18/2024 Prov ider: Diagnosis: Last Documented On 5 8:26AM By Kaylynn Philippe ; [facility], [facility] Nitrofurantoin Monohyd Macro 100 MG Oral Capsule 10/17/2024 Provider: Maggi zimmer APRN Diagnosis: Last Documented On 5 8:26AM By Kaylynnchavo Philippe ; [facility] Levothyroxine Sodium 88 MCG Oral Tablet 10/14/2024 Tony parker: LEOPOLDO TEJADA MD Diagnosis: Last Documented On 5 8:26AM By Kaylynn Jose Martin ; [facility] Dantrolene Sodium 50 MG Oral Capsule 10/13/2024 Prov ider: Suzan Sanchez MD Diagnosis: Last Documented On 5 8:26AM By Kaylynn Philippe ; [facility] Emgality 120 MG/ML Subcutane ous Solution Auto-injector 10/10/2024 Provider: Esther Mathew PA-C Diagnosis: Last Documented On 5 8:26AM By Kaylynnchavo Philippe ; [facility] Pantoprazole Sodium 40 MG Or al Tablet Delayed Release 10/07/2024 Provider: LEOPOLDO TEJADA MD Diagnosis: Last Documented On 5 8:26AM By Kaylynn Philippe ; [facility] busPIRone HCl 5 MG Oral Tablet 10/04/2024 Provider: Suzan Sanchez MD Diagnosis: Last Documented On 5 8:26AM By Kaylynn Philippe ; [facility] Linzess 72 MCG Oral Capsule 10/03/2024 Provider: Maggi Crawford APRN Diagnosis: Last Documented On 5 8:26AM By Kaylynn Philippe ; [facility] Hydrocortisone 5 MG Oral Tablet 09/29/2024 Provider: LEOPOLDO TEJADA MD Diagnosis: Last Documented On 5 8:26AM By Kaylynn Philippe ; [facility] Cefdinir 300 MG Oral Capsule 09/29/2024 Provider: Diagnosis: Last Documented On 5 8:26AM By Kaylynn Philippe ; [facility] Past Medications on file Zofran 4 MG Oral Tablet 07/20/2019 - 07/25/2019 Provid er: Patrick Newton MD Diagnosis: [id number] DO NOT FILL TILL 07/22/19 FOR SURGERY Last Documented On 9 12:44PM By Pat Oneil ; [facility] Colace 100 MG Oral Capsule 07/20/2019 - 10/18/2019 Provider: Patrick marsh MD Diagnosis: 1-2 tabs daily DO NOT FILL TILL 07/22/19 FOR SURGERY Last Documented On 9 12:44PM By Pat Oneil ; [facility] Neurontin 300 MG Oral Capsule 07/20/2019 - 10/18/2019 Provider: Patrick marsh MD Diagnosis: 1 every bedtime DO NOT ZEENAT L TILL 07/22/19 FOR SURGERY Last Documented On 9 12:34PM By Pat Oneil ; [facility] Dilaudid 2 MG Oral Tablet 07/20/2019 - 07/22/2019 Provider: Patrick marsh MD Diagnosis: 1-2 po q6h prn pain (RESCUE PAIN)DO NOT FILL TILL 07/22/19 FOR SURGERY Last Documented On 9 12:37PM By Pat Oneil ; [facility] Acetaminophen 500 MG Oral Tablet 07/20/2019 - 08/19/2019 Provider: Patrick Newton MD Diagnosis: 2 three times a day DO NOT FILL TILL 07/22/19 FOR SURGERY Last Documented On 9 12:44PM By Pat Oneil ; [facility] traMADol HCl 50 MG Oral Tablet 07/20/2019 - 07/25/2019 Provider: Patrick marsh MD Diagnosis: 1-2 po q6h prn pain DO NOT FILL TILL 07/22/19 FOR SURGERY Last Documented On 9 12:34PM By Pat Oneil ; [facility] oxyCODONE HCl 5 MG [...] 5MG Oral Tablet 07/31/2017 - 09/29/2017 Provider: Aym gonzalez MD Diagnosis: Take 1 tablet every 8 hrs// Last Documented On 7 11:22AM By Sonia Lima ; [facility] Iselin 5-325MG Oral Tablet 06/17/2017 - 07/17/2017 Prov ider: Ramone Staples MD Diagnosis: 1-2 every 4-6 hours as needed Last Documented On 7 9:20AM By Shelly Sood ; [facility] Voltaren 1 % Gel 03/25/2017 - 04/24/2017 Provider: Amy Jimenez MD Diagnosis: four times a day Last Documented On 7 10:06AM By Viktoria Chopra ; [facility] Flector 1.3 % Patch 03/25/2017 - 04/24/2017 Provider: Amy Jimenez MD Diagnosis: once a day Last Documented On 7 10:06AM By Viktoria Chopra ; [facility] Iselin 10-325 MG Tablet 03/25/2017 - 04/24/2017 Provide r: Amy Jimenez MD Diagnosis: 1-2 po q 4-6h prn Last Documented On 7 9:59AM By Viktoria Chopra ; [facility] CeleXA 20 MG Tablet 02/25/2017 - 03/27/2017 Provider: Amy Jimenez MD Diagnosis: once a day Last Documented On 7 10:27AM By Haven Mancuso ; [facility] Flector 1.3 % Patch 02/25/2017 - 04/26/2017 Provider: Amy Jimenez MD Diagnosis: apply patch to affected area BID or as needed Last Documented On 7 9:57AM By Viktoria Chopra ; [facility] Iselin 10-325 MG Tablet 02/25/2017 - 03/07/2017 Provide r: Amy Jimenez MD Diagnosis: 1-2 po q 4-6h prn Last Documented On 7 9:53AM By Viktoria Chopra ; [facility] Iselin 10-325 MG Tablet 01/09/2017 - 01/19/2017 Provide r: Amy Jimenez MD Diagnosis: 1-2 po q 4-6h prn/jkp Last Documented On 7 1:10PM By Haven Mancuso ; [facility] Medications Administered Includes: Administered Medications from this encounter No Administered Medications Recorded Vital Signs Includes: Vital Signs from this encounter Vital Name 08/19/2022 03:18P Blood Pressure Sitting (mmHg) 114/72 Pulse Rate-Sitting (bpm) 99 Height (in) 67 Weight (lb) 200 Body Mass Index 31.3 Body Surface Area 2 Note: aek Last Documented: On 08/19/2022 3:19PM ; [facility] Results Includes: Results discussed during this encounter No Results Recorded For Specified Dates History of Present Illness Includes: History of Present Illness from this encounter GABRIEL Frank is a 66 year old female. - Allergy list reviewed - Problem list reviewed - Medication list reviewed - Previous history of new onset pain Injury is not work related or an automotive accident - No previous treatment. Social History Description Last Updated No recent change in diet 08/19/2022 Last Documented On 3 8:00AM ; [facility] Not a current smoker. 08/19/2022 Last Documented On 3 8:00AM ; [facility] Non-smoker 07/09/2020 Last Documented On 3 2:49PM ; [facility] Not a current smoker. 07/09/2020 Last Documented On 3 2:49PM ; [facility] No tobacco use 04/23/2015 Last Documented On 3 2:49PM ; [facility], [facility] Smoking status : Never smoker 04/23/2015 Last Documented On 3 2:49PM ; [facility], [facility] Caffeine use 03/23/2015 Last Documented On 3 2:49PM ; [facility], [facility] No recent change in diet 03/23/2015 Last Documented On 3 2:49PM ; [facility] Not a current smoker 03/23/2015 Last Documented On 3 2:49PM ; [facility], [facility] Not exercising regularly 03/23/2015 Last Documented On 3 2:49PM ; [facility], [facility] Not using alcohol 03/23/2015 Last Documented On 3 2:49PM ; [facility], [facility] Not using drugs 03/23/2015 Last Documented On 3 2:49PM ; [facility], [facility] Procedures and Surgical History Includes: Procedures from this encounter Procedures Code Diagnosis Performing Provider Service L ocation Service Date use of tobacco assessment performed 1000F Last Documented On 3 2:49PM ; [facility], [facility] Pt received screening for fall risk G8270 Last Documented On 3 2:49PM ; [facility], [facility] Surgical History Last Updated History of total hip replacement 023 Last Documented On 3 8:00AM ; [facility] History of appendectomy 03/23/2015 Last Documented On 3 2:49PM ; [facility], [facility] History of hysterectomy 03/23/2015 Last Documented On 3 2:49PM ; [facility], [facility] Medical History Includes: Medical History addressed during this encounter Description Last Updated History of Anemia 08/19/2022 Last Documented On 3 8:00AM ; [facility] History of arthritis 08/19/2022 Last Documented On 3 8:00AM ; [facility] History of Fractures 08/19/2022 Last Documented On 3 8:00AM ; [facility] History of Heartburn / Acid Reflux 08/19 Last Documented On 3 8:00AM ; [facility] History of Thyroid Disease 08/19/2022 Last Documented On 3 8:00AM ; [facility] Anemia 07/09/2020 Last Documented On 3 2:49PM ; [facility] Arthritis 07/09/2020 Last Documented On 3 2:49PM ; [facility] Heartburn / Acid Reflux 07/09/2020 Last Documented On 3 2:49PM ; [facility] History of Blood Transfusion 07/09/2020 Last Documented On 3 2:49PM ; [facility] History of Rheumatology 07/09/2020 Last Documented On 3 2:49PM ; [facility] Hypertension 07/09/2020 Last Documented On 3 2:49PM ; [facility] Previous Fractures 07/09/2020 Last Documented On 3 2:49PM ; [facility] Thyroid Disease 07/09/2020 Last Documented On 3 2:49PM ; [facility] A recent immunization for flu 07/09/2020 Last Documented On 3 2:49PM ; [facility] Appendectomy 07/09/2020 Last Documented On 3 2:49PM ; [facility] Hysterectomy 07/09/2020 Last Documented On 3 2:49PM ; [facility] Total hip replacement 07/09/2020 Last Documented On 3 2:49PM ; [facility] colon, 2 foot surgeries, tim n pump placement,cateracts, kidney stones, colectomy, heartburn/acid reflux 06/08/2019 Last Documented On 3 2:49PM ; [facility] A previous fracture 06/08/2019 Last Documented On 3 2:49PM ; [facility] History of asthma 06/08/2019 Last Documented On 3 2:49PM ; [facility] History of osteoporosis 06/08/2019 Last Documented On 3 2:49PM ; [facility] Rheumatology history 06/08/2019 Last Documented On 3 2:49PM ; [facility] Thyroid disease 06/08/2019 Last Documented On 3 2:49PM ; [facility] A recent immunization for pneumococcal p neumonia 10/05/2014 03/23/2015 Last Documented On 3 2:49PM ; [facility] Arthritic joint problems 03/23/2015 Last Documented On 3 2:49PM ; [facility] Gallbladder disease 03/23/2015 Last Documented On 3 2:49PM ; [facility] History of depression 03/23/2015 Last Documented On 3 2:49PM ; [facility] Family History Includes: Family History addressed during this encounter Description Last Updated Stroke / Seizures 08/19/2022 Last Documented On 3 8:00AM ; [facility] Diabetes mellitus 07/09/2020 Last Documented On 3 2:49PM ; [facility] Family history of osteoporosis 0 Last Documented On 3 2:49PM ; [facility] Family history of rheumatoid arthritis 1 09/09/2019 Last Documented On 3 2:49PM ; [facility] Family history of cancer 01/09/2017 Last Documented On 3 2:49PM ; [facility] Family history of diabetes mellitus /0 04/2017 Last Documented On 3 2:49PM ; [facility] Family history of heart disease 01/10/20 Last Documented On 3 2:49PM ; [facility], [facility] Review of Systems Includes: Review of Systems [...] No heartburn and no abdominal pain. No Indigestion. Acid Reflux. No Peptic Ulcer, no GI Stomach Bleed, and [...] Active Last Documented On 5 7:54AM ; [facility] Lyrica Allergy 03/23/2015 Active Last Documented On 5 7:54AM ; [facility] Keflex Allergy 03/23/2015 Active Last Documented On 5 7:54AM ; [facility] Erythromycin Allergy 03/23/2015 Active Last Documented On 5 7:54AM ; [facility] Codeine Sulfate Allergy 03/23/2015 Act ru Last Documented On 5 7:54AM ; [facility] Clindamycin HCl Allergy 06/08/2019 Act ru Last Documented On 5 7:54AM ; [facility] Cleocin Allergy 03/23/2015 Active Last Documented On 5 7:54AM ; [facility] Cephalexin Allergy 06/08/2019 Active Last Documented On 5 7:54AM ; [facility] Encounters Encounter Provider Location Date Check-In Time Check-Out Time Diagnosis Follow Up Missael Avalos PA-C [facility] 3 2:40PM 4:17PM Insurance Includes: Active Insurance Policies Plan Name Member ID Group # Subscriber Relationship Effect ru Dates 1 - Medicare Part B [facility] [id number] Sandie Frank Self 05/03/2014 - Unknown 2 - [facility] [id number] Sandie Frank Self 08/03/2018 - Unknown Clinical Notes Includes: Clinical Notes from this encounter * Progress note Date Encounter Last Documented by 08/19/2022 Follow Up Last documented on 08/21/2022; 8:00 AM, Missael Avalos PA-C; [facility] Active Problems & Conditions - Carpal Tunnel Syndrome - Joint Pain in the Right Hip - Joint Pain, Localized in Both Shoulders - Joint Pain, Localized in the Shoulder - Right Forearm Bone Pain Chief Complaint The Chief Complaint is: Right hip pain. Referred Here Referred by Sagar Kidd. History of Present Illness Sandie Frank is a 66 year old female. - Allergy list reviewed - Problem list reviewed - Medication list reviewed - Previous history of new onset pain Injury is not work related or an automotive accident - No previous treatment. Current Medication - Advanced Probiotic Oral Capsule three times a day 0 days, 0 refills - Albuterol Sulfate (2.5 MG/3ML) 0.083% Inhalation Nebulization solution take as directed 0 days, 0 refills - Albuterol Sulfate (2.5 MG/3ML) 0.083% Inhalation Nebulization solution use as directed 0 days, 0 refills - Alendronate Sodium 70 MG Oral Tablet take as directed 0 days, 0 refills - Alrex 0.2% Ophthalmic Suspension take as directed 0 days, 0 refills - amLODIPine Besylate 5 MG Oral Tablet take as directed 0 days, 0 refills - Azelastine HCl 0.1% Nasal Solution use as directed 0 days, 0 refills - Biotin 87111 MCG Oral Tablet take as directed 0 days, 0 refills - Budesonide 0.25 MG/2ML Inhalation Suspension use as directed 0 days, 0 refills - Budesonide 0.25 MG/2ML Inhalation Suspension use as directed 0 days, 0 refills - Crestor 20 MG Oral Tablet take as directed 0 days, 0 refills - [facility] Magnesium 250 MG Oral Tablet use as directed 0 days, 0 refills - [facility] Melatonin 10 MG Oral Capsule take as directed 0 days, 0 refills - [facility] Stool Softener 100 MG Oral Capsule use as directed 0 days, 0 refills - [facility] Vitamin C 1000 MG Oral Tablet take as directed 0 days, 0 refills - [facility] Vitamin D3 69828 UNIT Oral Capsule 250 MCG (22858 UT) take as directed 0 days, 0 refills - Cymbalta 30 MG Oral Capsule Delayed Release Particles take as directed 0 days, 0 refills - Cymbalta 60 MG Oral Capsule Delayed Release Particles take as directed 0 days, 0 refills - Daily Multivitamin Oral Capsule take as directed 0 days, 0 refills - Decara 1.25 MG (83859 UT) Oral Capsule use as directed 0 days, 0 refills - Donepezil HCl 10 MG Oral Tablet take as directed 0 days, 0 refills - EQ Hydrocortisone 1% External Cream take as directed 0 days, 0 refills - EQL Lutein 20 MG Oral Capsule take as directed 0 days, 0 refills - Flax Seed Oil 1000 MG Oral Capsule take as directed 0 days, 0 refills - Fluticasone Furoate 100 MCG/ACT Inhalation Aerosol Powder Breath Activated take as directed 0 days, 0 refills - Hydrocortisone 5 MG Oral Tablet take as directed 0 days, 0 refills - Hydrocortisone 5 MG Oral Tablet use as directed 0 days, 0 refills - lamoTRIgine 100 MG Oral Tablet take as directed 0 days, 0 refills - lamoTRIgine 100 MG Oral Tablet use as directed 0 days, 0 refills - Levothyroxine Sodium 88 MCG Oral Tablet use as directed 0 days, 0 refills - Lunesta 3 MG Oral Tablet take as directed 0 days, 0 refills - Memantine HCl 10 MG Oral Tablet 30 days, 0 refills - Montelukast Sodium 10 MG Oral Tablet take as directed 0 days, 0 refills - [facility] Oral Capsule use as directed 0 days, 0 refills - raNITIdine HCl 150 MG Oral Capsule take as directed 0 days, 0 refills - rOPINIRole HCl 0.5 MG Oral Tablet use as directed 0 days, 0 refills - SEROquel 300 MG Oral Tablet take as directed 0 days, 0 refills - Sodium Bicarbonate 325 MG Oral Tablet take as directed 0 days, 0 refills - Symbicort 160-4.5 MCG/ACT Inhalation Aerosol use as directed 0 days, 0 refills Past Medical/Surgical History Reported: [...] pump placement,cateracts, kidney stones, colectomy, heartburn/acid reflux. Procedural: - Previous Fractures Surgical: - Appendectomy - Appendectomy - Hysterectomy - Hysterectomy - Total hip replacement - Total hip replacement Social History Not [...] Heart disease Stroke / Seizures Diabetes mellitus Osteoporosis Diabetes mellitus Rheumatoid arthritis Review Of [...] No heartburn and no abdominal pain. No Indigestion. Acid Reflux. No Peptic Ulcer, no GI Stomach Bleed, and [...] allergic reaction. Physical Findings - Vitals taken 08/19/2022 03:18 pm aek BP-Sitting 114/72 mmHg Pulse Rate-Sitting 99 bpm Height 67 in Weight 200 lbs Body Mass Index 31.3 kg/m2 Body Surface Area 2 m2 Standard Measurements: - Patient was overweight. Patient alert and oriented Healthy weight unsteady gait (baseline for patient) LLD [0mm] Skin clean, dry and intact moderate TTP greater trochanter, gluteus medius musculature right hip range of motion flexion 115-, internal rotation 20- external rotation 30-, painful with internal/external rotation treat leg raise intact but weak, baseline per patient Abductor Strength [5/5] Strenght [5/5] TA, Gastroc, Quad Sensation intact to light touch throughout Palpable puslses DP/PT Tests 2 views of the right hip taken today demonstrates well fixed well-positioned total hip arthroplasty. No sign of loosening or prosthetic complications Assessment right total hip arthroplasty late 2018 Right hip bursitis and gluteal tendinitis Therapy - Pt received screening for fall risk. Counseling/Education - Instructions for patient to see pcp for bp and wt - Lose weight Plan StartCited - Other Therapy/Physical Therapy: Knee Instructions: See PT order attached EndCited Fall Risk Assessment: This patient has been [...] therapy has been discussed with the patient. patient states she has been doing well since her index operation. Over the last few months is noticing a catching in the lateral aspect of the right hip as well as tenderness to palpation. X-rays demonstrates well fixed well-positioned hip arthroplasty. Exam demonstrates notably poor balance on exam. Tender to palpation over the greater trochanter. Some discomfort with internal and external rotation. Recommended physical therapy for right hip bursitis and gluteal tendinitis prior to follow-up in 3-4 months for consideration of injection if needed Notes This dictation was done with voice recognition software and may contain errors and omissions. Electronically signed by Shiv Avalos PA-C Practice Management Use of tobacco assessment performed. Care Team - LEOPOLDO TEJADA MD - [employer]
--- OUTSIDE RECORDS SUMMARY | 2024-11-10 21:45 | XMS_ITS | Data Portability ---
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 Today she rates her pain a 9 out of 10. Patient denies any new trauma or injury. She does state that she still is experienced severe pain throughout her low back and tailbone area.Patient is scheduled for back surgery with Dr. Lyons on March 30. Patient is currently managed with Dilaudid intrathecal pump at 10 mg/mL with a daily dose of 10.995mg per day. She denies any side effects from this medication or her oxycodone 15 mg 4 times a day. Patient does state that she still feels like this does not do well in comparison to her previous fentanyl in her pump. Her Romeo has been reviewed and is appropriate. [id number] Patient will return to clinic in 1 month for reevaluation of symptoms and plan of care. Patient has already picked up her most recent prescription of her oxycodone yesterday and does not need this refilled today. I have counseled the patient due to her upcoming surgery we will plan on doing a telehealth visit next. Patient is agreeable to this plan of care. I did also discuss with the patient in future hopefully that the back surgery does help and that maybe she will be able to taper down on oral medications. We will continue to monitor this at future visits. We will see the patient back in the clinic at the next intrathecal refill. Patient has been instructed to contact the clinic with any concerns before the next appointment. This note was dictated using voice recognition software and may contain errors or omissions. [email or web address] Not available 03/01/2024 15:58:09 03/17/2024 03/17/2024 Patient is a pleasant 68-year-old female who presents today for medication refill and follow-up via telehealth. She is in her home in no distress. She rates her pain 8 out of 10.Is currently being treated for degenerative disc disease of the lumbar spine with lumbar radiculopathy as well as postlaminectomy syndrome. Patient denies any new trauma or injury. She does state that she still is experienced severe pain throughout her low back and tailbone area.Patient is scheduled for back surgery with Dr. Lyons on March 18. Patient is currently managed with Dilaudid intrathecal pump at 10 mg/mL with a daily dose of 10.995mg per day. She denies any side effects from this medication or her oxycodone 15 mg 4 times a day. He does require refills of her oral medication today. Her Romeo has been reviewed and is appropriate. [id number] We will refill her oxycodone 15 mg 4 times a day. We will plan on seeing her back in 1 month. Patient has been instructed to contact the clinic with any concerns before the next appointment. This note was dictated using voice recognition software and may contain errors or omissions. Patient is an established patient with their informed consent to treat signed and on file. Patient was verbally authenticated based on the demographic information in the patient? s file. Patient was given choice of telehealth ([place]) visit. telephone visit, or office visit; patient chose telephone visit due to COVID-19 state of emergency. This visit is being conduct via telephone ([place]) in accordance to all applicable laws and regulations. Patient is located in the [facility] and the treating medical provider is located in the [facility]. The telephone call was conducted for approximately mins. 12 [email or web address] Not available 03/17/2024 21:16:47 04/14/2024 04/14/2024 This was a telemedicine visit as the patient was at [facility] recovering from surgery. I was in the office she did not have access to video capabilities. This was a telephone call she did consent to this telephone call. She had revision of her L3-L5 fusion. She is still having some weakness in her lower extremities she may have also had a stroke intraoperatively. Pain is better. She did get her pump refill done by [facility] refill yesterday. We will continue her on home refill as she is recovering from surgery. At her last visit we did send in oxycodone 15 mg 4 times a day. Romeo and drug screen are all appropriate. She will pick these up we will follow-up with her in 1 month we will reevaluate her symptoms and evaluate recovery from her revision of her L3-L5 fusion. Patient is an established patient with their informed consent to treat signed and on file. Patient was verbally authenticated based on the demographic information in the patient? s file. Patient was given choice of telehealth ([place]) visit. telephone visit, or office visit; patient chose telephone visit due to [facility]- state of emergency. This visit is being conduct via telephone ([place]) in accordance to all applicable laws and regulations. Patient is located in the [facility] and the treating medical provider is located in the [facility]. The telephone call was conducted for approximately 15 mins. abux Not available 04/14/2024 09:30:01 05/12/2024 05/12/2024 This patient had refill of her intrathecal hydromorphone pain pump done today. She is having some increasing pain we did increase her to 12 mg/day. She is in a wheelchair. She has previously had back surgery and since her surgery she has spasms and pain in her lower extremities. She also has lower extremity weakness and is unable to stand. She is undergoing rehab at [facility] and she is scheduled to go back into the hospital for possibly additional surgery or rehabilitation. Motor strength of the lower extremity is 3 out of 5. There is no gross sensory deficit. She does have spasms down her left leg. We Did increase her dose to 12 mg/day. Her next refill is on or before 06/11/2024. abux Not available 05/12/2024 22:19:09 06/27/2024 06/27/2024 This patient had refill of her intrathecal pain pump done today. Since her last refill she was hospitalized again her pump was decreased because of oversedation as they were also given her baclofen, oxycodone and Valium. She has undergone surgery again. [facility]. She continues to have issues with spasms in her left leg however the pain in the coccyx region and left leg are better. She is undergoing rehabilitation at this time. We did refill her pump she is in a wheelchair she is minimal ambulation. Lower extremity motor strength is 3 out of 5. She does have significant spasms in her left leg. There is no gross sensory deficit. We refilled her pump we continued her at her current dose and we will see her back for her next pump. We will see her back at her next pump refill this will be on or before August 10, 2024.We have reviewed her notes from . They are planning on doing Botox injections to help with spasms in the left lower extremity. She also does have significant weakness of her left arm. They are doing nerve conduction studies and EMGs working her up for stroke symptoms.We will continue to follow. Since the patient is in a penitentiary and is not ambulatory when she goes home we will seek approval for [facility] home health refill as the patient has great difficulty in getting to the clinic. [email or web address] Not available 06/27/2024 18:32:52 Plan of Treatment Reminders Order Date Submit Date Provider Last Modified By Organization Details Last Modified Time Details Appointments None recorded. Lab None recorded. Referral None recorded. Procedures intrathecal pump refill (PROC) 2023 024 [email or web address] Not available 09:56:38 intrathecal pump refill (PROC) 2023 024 [email or web address] Not available 10:53:42 Surgeries None recorded. Imaging None recorded. Medication Orders oxycodone 15 mg tablet 2023 024 [facility], [address], [address], 4 10:51:35 Patient TargetsNo targets recorded. Patient InstructionsNo instructions recorded. Reason for Referral None Reported. Results Created Date Observation Date Name Description Value Unit Range Abnormal Flag Note LastModifiedBy Organization Detail LastModifiedTime 02/29/20 24 MRI, lumba r spine , w/o contr ast No observ ation record ed. [email or web address] Not Available 2023 14:49:59 Result Notes None recorded. Problems Name Problem SNOMED Code Status Onset Date Resolution Date Notes Provider Name and Address Organization Details Recorded Time History of lumbar fusion [id number] 6 Active 2023 Sagar Kidd MD [address] [facility],[address], [address], [place] [facility] 4 09:30:12 Lumbar post-christopher ctomy syndrome [id number] Active 2022 Sagar Kidd MD [address] [facility],[address], [address], [place] [facility] 3 12:42:22 Lumbar radiculopat hy 567937875 Active 2022 Sagar Kidd MD [address] [facility],[address], [address], [place] [facility] 3 12:42:23 Degeneratio n of lumbar interverteb ral disc 71271733 Active 2022 Sagar Kidd MD [address] [facility],[address], [address], [place] [facility] 3 12:42:24 Problem Notes None recorded. Procedures Surgical History Date Name Laterality Status Provider Name and Address Organization Details Recorded Time 06/27/20 24 Pump Refill completed Sagar Kidd MD [address] [facility],[address], [address], [place] [facility] 06/27/2024 18:29:09 05/12/20 24 Pump Refill completed Sagar Kidd MD [address] [facility],[address], [address], [place] [facility] 05/12/2024 22:17:49 12/30/19 24 PUMP ADJUSTMENT completed Sagar Kidd MD [address] [facility],[address], [address], [place] [facility] 12/30/2023 09:48:52 11/12/19 24 PUMP ADJUSTMENT completed Sagar Kidd MD [address],[facility] [facility], [place], [address], [place] [facility] 11/12/2023 09:35:32 11/12/19 24 Caudal Epidural Steroid Injection Under Fluoroscopy completed Sagar Kidd MD [address],[facility], [place], [address], [place] [facility] 11/12/2023 09:34:52 10/29/19 24 PUMP ADJUSTMENT completed Sagar Kidd MD [address], [address], [place] [facility] 10/29/2023 22:42:43 10/23/19 24 PUMP ADJUSTMENT completed Sagar Kidd MD [address], [address], [place] [facility] 10/25/2023 17:41:36 10/15/19 24 Pump Refill completed Sagar Kidd MD [address] ,[address], [address], [place] [facility] 10/15/2023 13:13:48 10/07/19 24 PUMP ADJUSTMENT cancelled CHRISTA COREY [place] [facility] 10/05/2023 07:33:42 09/24/19 24 PUMP ADJUSTMENT completed Sagar Kidd MD [address] ,[address], [address], [place] [facility] 09/24/2023 18:59:17 09/09/19 24 PUMP ADJUSTMENT completed Sagar Kidd MD [address] ,[address], [address], [place] [facility] 09/09/2023 22:00:08 09/09/19 24 Lumbar MILDRED: Interlaminar completed Sagar Kidd MD [address] ,[address], [address], [place] [facility] 09/09/2023 21:59:32 08/27/19 24 PUMP ADJUSTMENT completed Sagar Kidd MD [address] ,[address], [address], [place] [facility] 08/27/2023 10:34:46 07/31/20 23 PUMP ADJUSTMENT completed Sagar Kidd MD [address],[facility], [place], [address], [place] [facility] 07/31/2023 14:28:40 07/31/20 Diagnostic SI Joint Injection Under Fluoroscopy completed Sagar Kidd MD [address],[facility], [place], [address], [place] [facility] 07/31/2023 14:28:03 07/16/20 Pump Refill completed Sagar Kidd MD [address],[facility], [place], [address], [place] [facility] 07/16/2023 19:03:50 05/26/20 23 Pump Refill cancelled CHRISTA COREY [place] [facility] 05/19/2023 11:48:31 04/30/20 Pump Refill completed Sagar Kidd MD [address], [address], [place] [facility] 04/30/2023 09:35:06 04/23/20 23 SCS Leads Removal cancelled CHRISTA COREY [place] [facility] 04/17/2023 08:39:13 04/16/20 23 SCS Leads Removal completed Sagar Kidd MD [address] [place] [address], [address], [place] [facility] 04/17/2023 00:35:18 04/10/20 23 SCS Trial completed Sagar Kidd MD [address] ,[address], [address], [place] [facility] 04/10/2023 12:39:45 Imaging Results Imaging Date Name Status LastModified by Organiz ation Details LastModified Time 02/29/2024 MRI, lumbar spine, w/o contrast completed [email or web address] Information not available 02/29/2024 14:49:59 Procedure Notes None recorded. Medical Equipment None Reported. Allergies Allergen ID Allergen Name Allergen Category Reaction Reaction Severity Criticality Documentation Date Start Date Code Code System Note Provider Name and Address Organization Details Recorded Time 0148 cephalexi n medicatio n Not available Not available Not available 04/10/2023 2231 RxNorm Debby Flowers null, [place] [facility] 3 08:39:36 3600 codeine medicatio n Not available Not available Not available 04/10/2023 2670 RxNorm Debby Flowers null, [place] [facility] 3 08:40:19 3601 erythromy juan a medicatio n Not available Not available Not available 04/10/2023 4053 RxNorm Debby Flowers null, [place] [facility] 3 08:40:37 3602 Lyrica medicatio n Not available Not available Not available 04/10/2023 11921 1 RxNorm Debby Flowers null, [place] [facility] 3 08:40:45 3603 Keflex medicatio n Not available Not available Not available 04/10/2023 78726 7 RxNorm Debby Flowers null, [place] [facility] 3 08:40:53 3604 Levaquin medicatio n Not available Not available Not available 04/10/2023 31032 2 RxNorm Debby Flowers null, [place] [facility] 3 08:41:03 Medications Name Sig Start Date Stop Date Status Note LastModified by Organization Details LastModified Time DILAUDID 20 DISPENSE IN 20 ML FOR INTRATHE PAT INFUSION 2024 active Not Available Not Available Not Avai lable DILAUDID 20 DISPENSE IN 20 ML FOR INTRATHE PAT INFUSION 2023 active Not Available Not Available Not Avai lable DILAUDID 20 DISPENSE IN 20 ML FOR INTRATHE PAT INFUSION 2023 active Not Available Not Available Not Avai lable dilaudid 1 DISPENSE 20 M TO INFUSE THROUGH INTRATHE PAT PUMP 2023 active Not Available Not Available Not Avai lable DILAUDID 20 DISPENSE IN 20 ML FOR INTRATHE PAT INFUSION 2023 active Not Available Not Available Not Avai lable DILAUDID 10 DISPENSE IN 20 ML FOR INTRATHE PAT INFUSION 2023 active Not Available Not Available Not Avai lable DILAUDID 10 DISPENSE IN 20 ML FOR INTRATHE PAT INFUSION 04/08 completed Not Available Not Available Not Available BUPIVACAI NE 5 dispense 20ml to infuse through intrathe pat pump 2022 active Not Available Not Available Not Avai lable BUPIVACAI NE 5 dispense 20ml to infuse through intrathe pat pump 07/16 completed Not Available Not Available Not Available DILAUDID 10 DISPENSE IN 20 ML FOR INTRATHE PAT INFUSION 2023 active Not Available Not Available Not Avai lable BUPIVACAI NE 10 DISPENSE IN 20 ML FOR INTRATHE PAT PUMP INFUSION 01/25 completed MEDICATI ON CHANGE Not Available Not Available Not Available DILAUDID 20 DISPENSE IN 20 ML FOR INTRATHE PAT INFUSION 2024 active Not Available Not Available Not Avai lable dilaudid 1 DISPENSE 20 M TO INFUSE THROUGH INTRATHE PAT PUMP 01/25 completed concentr ation change Not Available Not Available Not Available DILAUDID 20 DISPENSE IN 20 ML FOR INTRATHE PAT INFUSION 2023 active Not Available Not Available Not Avai lable DILAUDID 20 DISPENSE IN 20 ML FOR INTRATHE PAT INFUSION 2024 active Not Available Not Available Not Avai lable DILAUDID 20 DISPENSE IN 20 ML FOR INTRATHE PAT INFUSION 2024 active Not Available Not Available Not Avai lable DILAUDID 20 DISPENSE IN 20 ML FOR INTRATHE PAT INFUSION 2023 active Not Available Not Available Not Avai lable DILAUDID 5 DISPENSE IN 20 ML FOR INTRATHE PAT INFUSION 01/25 completed concentr ation change Not Available Not Available Not Available DILAUDID 20 DISPENSE IN 20 ML FOR INTRATHE PAT INFUSION 2023 active Not Available Not Available Not Avai lable DILAUDID 20 DISPENSE IN 20 ML FOR INTRATHE PAT INFUSION 2023 active Not Available Not Available Not Avai lable hydrocort isone 5 mg tablet TAKE ONE TABLET BY MOUTH TWICE DAILY --TAKE WITH FOOD-- active Not Available Not Available No t Available cyclobenz aprine 10 mg tablet TAKE 1 TABLET BY MOUTH THREE TIMES DAILY NEEDED FOR MUSCLE SPASM 04/13 completed Not Available Not Available Not Available buspirone 5 mg tablet TAKE 1 TABLET BY MOUTH THREE TIMES DAILY active Not Available Not Available No t Available promethaz ine-DM 6.25 mg-15 mg/5 mL oral syrup TAKE 5 ML BY MOUTH 4 TIMES DAILY NEEDED FOR COUGH 04/13 completed Not Available Not Available Not Available fluticaso ne 250 mcg-salme terol 50 mcg/dose blistr powdr for inhalatio n INHALE 1 DOSE BY MOUTH TWICE DAILY active Not Available Not Available No t Available nystatin 100,000 unit/mL oral suspensio n TAKE 5 ML BY MOUTH 4 TIMES DAILY FOR 10 DAYS 04/13 completed Not Available Not Available Not Available prednison e 10 mg tablet TAKE 4 TABLETS BY MOUTH ONCE DAILY FOR 3 DAYS, THEN 3 TABS ONCE DAILY FOR 3 DAYS, THEN 2 TABS ONCE DAILY FOR 3 DAYS, THEN 1 TABLET ONCE DAILY FOR 3 DAYS 04/13 completed Not Available Not Available Not Available doxycycli ne hyclate 100 mg capsule TAKE 1 CAPSULE BY MOUTH TWICE DAILY FOR 14 DAYS 04/13 completed Not Available Not Available Not Available ropinirol e 1 mg tablet TAKE 1 TABLET BY MOUTH TWICE DAILY FOR RESTLESS LEGS 09/23 completed Not Available Not Available Not Available quetiapin e 300 mg tablet TAKE 1 TABLET BY MOUTH ONCE DAILY AT NIGHT active Not Available Not Available No t Available albuterol sulfate 2.5 mg/3 mL (0.083 %) solution for nebulizat ion 04/13 completed Not Available Not Available Not Available azithromy juan a 250 mg tablet TAKE 2 TABLETS BY MOUTH ON DAY 1, AND THEN TAKE 1 TABLET BY MOUTH ONCE A DAY ON DAY 2 THROUGH DAY 5 05/12 completed Not Available Not Available Not Available tizanidin e 4 mg tablet 04/13 completed Not Available Not Available Not Available fluconazo le 150 mg tablet Take 1 tablet every 72 hours by oral route. active Not Available Not Available No t Available benzonata te 200 mg capsule TAKE 1 CAPSULE BY MOUTH THREE TIMES DAILY NEEDED FOR COUGH 05/19 completed Not Available Not Available Not Available ondansetr on HCl 8 mg tablet TAKE 1 TABLET BY MOUTH THREE TIMES DAILY NEEDED 09/23 completed Not Available Not Available Not Available promethaz ine 12.5 mg tablet TAKE 1 TABLET BY MOUTH THREE TIMES DAILY NEEDED FOR NAUSEA AND VOMITING 04/13 completed Not Available Not Available Not Available ondansetr on HCl 4 mg tablet TAKE 1 TABLET BY MOUTH EVERY 8 HOURS NEEDED active Not Available Not Available No t Available famotidin e 40 mg tablet 04/13 completed Not Available Not Available Not Available prednison e 20 mg tablet TAKE 1 TABLET BY MOUTH ONCE DAILY 04/13 completed Not Available Not Available Not Available alendrona te 70 mg tablet 04/13 completed Not Available Not Available Not Available dantrolen e 50 mg capsule TAKE 2 CAPSULES BY MOUTH 4 TIMES DAILY active Not Available Not Available No t Available dantrolen e 100 mg capsule TAKE 1 CAPSULE BY MOUTH FOUR TIMES A DAY active Not Available Not Available No t Available amlodipin e 5 mg tablet TAKE 1 TABLET BY MOUTH ONCE DAILY active Not Available Not Available No t Available sulfameth oxazole 800 mg-trimet hoprim 160 mg tablet TAKE 1 TABLET BY MOUTH TWICE DAILY active Not Available Not Available No t Available omeprazol e 40 mg capsule,d elayed release TAKE 1 CAPSULE BY MOUTH ONCE DAILY 05/19 completed Not Available Not Available Not Available doxycycli ne monohydra te 100 mg tablet active Not Available Not Available Not Available Euthyrox 100 mcg tablet 04/13 completed Not Available Not Available Not Available oxycodone 15 mg tablet Take 1 tablet every 6 hours by oral route for 30 days. 2023 active Not Available Not Available Not Avai lable levothyro xine 88 mcg tablet TAKE 1 TABLET BY MOUTH ONCE DAILY active Not Available Not Available No t Available amoxicill in 875 mg tablet TAKE 1 TABLET BY MOUTH EVERY 12 HOURS FOR 10 DAYS 09/09 completed Not Available Not Available Not Available methocarb mitchell 750 mg tablet active Not Available Not Available No t Available sodium bicarbona te 650 mg tablet TAKE 1 TABLET BY MOUTH TWICE DAILY active Not Available Not Available No t Available diazepam 2 mg tablet active Not Available Not Available Not Available baclofen 10 mg tablet TAKE 2 TABLETS BY MOUTH 4 TIMES DAILY active Not Available Not Available No t Available benzonata te 100 mg capsule TAKE 1 CAPSULE BY MOUTH THREE TIMES DAILY NEEDED FOR COUGH 09/11 /2023 completed Not Available Not Available Not Available cephalexi n 500 mg capsule 04/08 completed Not Available Not Available Not Available pantopraz ole 40 mg tablet,de layed release TAKE 1 TABLET BY MOUTH ONCE DAILY active Not Available Not Available No t Available nortripty line 10 mg capsule TAKE 1 CAPSULE BY MOUTH TWICE DAILY 04/13 completed Not Available Not Available Not Available cyanocoba ivon (vit B-12) 1,000 mcg/mL injection solution 09/23 completed Not Available Not Available Not Available oseltamiv ir 75 mg capsule 04/13 completed Not Available Not Available Not Available ropinirol e 0.5 mg tablet TAKE 1 TABLET BY MOUTH TWICE DAILY 05/19 completed Not Available Not Available Not Available budesonid e 0.5 mg/2 mL suspensio n for nebulizat ion USE 1 VIAL IN NEBULIZE R TWICE DAILY 10/04 completed Not Available Not Available Not Available monteluka st 10 mg tablet TAKE 1 TABLET BY MOUTH EVERY DAY AT BEDTIME active Not Available Not Available No t Available mupirocin 2 % topical ointment APPLY OINTMENT TOPICALL Y TO AFFECTED AREA THREE TIMES DAILY FOR 5 DAYS 09/23 completed Not Available Not Available Not Available gabapenti n 100 mg capsule 04/13 completed Not Available Not Available Not Available hydrocort isone 10 mg tablet 04/13 completed Not Available Not Available Not Available methylpre dnisolone 4 mg tablets in a dose pack active Not Available Not Available Not Available hydrocodo ne 10 mg-chlorp heniramin e 8 mg/5 mL oral susp extend.re l 12hr TAKE 5ML BY MOUTH EVERY 12 HOURS NEEDED FOR COUGH FOR UP TO 7 DAYS 04/13 completed Not Available Not Available Not Available albuterol sulfate HFA 90 mcg/actua tion aerosol inhaler INHALE 2 PUFFS BY MOUTH EVERY 4 HOURS NEEDED FOR WHEEZING FOR SHORTNES S OF BREATH 10/04 completed Not Available Not Available Not Available cefdinir 300 mg capsule TAKE 1 CAPSULE BY MOUTH TWICE DAILY FOR 5 DAYS active Not Available Not Available No t Available fluticaso ne propionat e 50 mcg/actua tion nasal spray,juan pension USE 2 SPRAY(S) IN EACH NOSTRIL ONCE DAILY 09/23 completed Not Available Not Available Not Available doxycycli ne hyclate 100 mg tablet 04/08 completed Not Available Not Available Not Available lamotrigi ne 100 mg tablet TAKE 1 TABLET BY MOUTH TWICE DAILY active Not Available Not Available No t Available diazepam 5 mg tablet TAKE 1 TABLET BY MOUTH TODAY FOR ANXIETY THEN 1 TAB TOMORROW UPON AWAKING PRIOR TO SURGERY active Not Available Not Available No t Available amoxicill in 875 mg-potass ium clavulana te 125 mg tablet TAKE 1 TABLET BY MOUTH TWICE DAILY 04/13 completed Not Available Not Available Not Available bacitraci n-polymyx in B 500 unit-10,0 00 unit/gram eye ointment APPLY TO SUTURES THREE TIMES DAILY FOR 7 DAYS DIRECTED THEN BEGIN DAILY MASSAGE 05/19 completed Not Available Not Available Not Available oxycodone 5 mg tablet TAKE 1 & 1/2 (ONE & ONE-HALF ) TABLETS BY MOUTH EVERY 6 HOURS NEEDED FOR PAIN 05/19 completed Not Available Not Available Not Available rosuvasta tin 20 mg tablet TAKE 1 TABLET BY MOUTH ONCE DAILY active Not Available Not Available No t Available rosuvasta tin 40 mg tablet 04/13 completed Not Available Not Available Not Available memantine 10 mg tablet TAKE 1 TABLET BY MOUTH TWICE DAILY active Not Available Not Available No t Available metoprolo l tartrate 25 mg tablet 04/13 completed Not Available Not Available Not Available nitrofura ntoin monohydra te/macroc rystals 100 mg capsule TAKE 1 CAPSULE BY MOUTH TWICE DAILY FOR 7 DAYS 04/13 completed Not Available Not Available Not Available duloxetin e 30 mg capsule,d elayed release 04/13 completed Not Available Not Available Not Available duloxetin e 60 mg capsule,d elayed release TAKE 1 CAPSULE BY MOUTH TWICE DAILY active Not Available Not Available No t Available eszopiclo ne 3 mg tablet TAKE 1 TABLET BY MOUTH ONCE DAILY AT NIGHT active Not Available Not Available No t Available lubiprost one 24 mcg capsule 04/13 completed Not Available Not Available Not Available Symbicort 160 mcg-4.5 mcg/actua tion HFA aerosol inhaler INHALE 2 PUFFS BY MOUTH TWICE DAILY 09/23 completed Not Available Not Available Not Available formotero l fumarate 20 mcg/2 mL solution for nebulizat ion INHALE 1 VIAL BY NEBULIZE R TWICE DAILY 09/23 completed Not Available Not Available Not Available budesonid e 1 mg/2 mL suspensio n for nebulizat ion 04/13 completed Not Available Not Available Not Available oxycodone 20 mg tablet TAKE 1 TABLET BY MOUTH TWICE DAILY NEEDED 12/29 completed Not Available Not Available Not Available oxycodone 10 mg tablet TAKE 1 TABLET BY MOUTH 4 TIMES DAILY active Not Available Not Available No t Available azelastin e 205.5 mcg (0.15 %) nasal spray ADMINIST ER 2 SPRAYS IN EACH NOSTRIL TWICE DAILY 04/08 completed Not Available Not Available Not Available donepezil 23 mg tablet TAKE 1 TABLET BY MOUTH ONCE DAILY active Not Available Not Available No t Available Breo Ellipta 100 mcg-25 mcg/dose powder for inhalatio n INHALE 1 PUFF BY MOUTH ONCE DAILY active Not Available Not Available No t Available Movantik 25 mg tablet TAKE 1 TABLET BY MOUTH ONCE DAILY 09/23 completed Not Available Not Available Not Available naloxone 4 mg/actuat ion nasal spray ADMINIST ER A SINGLE SPRAY INTRANAS ALLY INTO ONE NOSTRIL. CALL 911. MAY REPEAT X1. 09/23 completed Not Available Not Available Not Available Xiidra 5 % eye drops in a dropperet te 04/13 completed Not Available Not Available Not Available Linzess 72 mcg capsule TAKE 1 CAPSULE BY MOUTH ONCE DAILY active Not Available Not Available No t Available Trulance 3 mg tablet TAKE 1 TABLET BY MOUTH ONCE DAILY active Not Available Not Available No t Available Emgality Pen 120 mg/mL subcutane ous pen injector active Not Available Not Available Not Available Aimovig Autoinjec tor 140 mg/mL subcutane ous auto-inje ctor active Not Available Not Available Not Available Ubrelvy 100 mg tablet active Not Available Not Available Not Available Nurtec ODT 75 mg disintegr ating tablet 09/23 completed Not Available Not Available Not Available Ajovy 225 mg/1.5 mL subcutane ous auto-inje ctor 05/19 completed Not Available Not Available Not Available Dupixent 300 mg/2 mL subcutane ous pen injector active Not Available Not Available Not Available Paxlovid 150 mg-100 mg tablets in a dose pack (Renal Dose) TAKE 2 TABLETS BY MOUTH TWICE DAILY FOR 5 DAYS 04/13 completed Not Available Not Available Not Available Vitals Date Recorded Body height Body mass index (BMI) Body weight Oxygen saturation Oxygen saturation in Arterial blood by Pulse oximetry Heart rate Pain severity - 0-10 verbal numeric rating [Score] - Reported Systolic blood pressure Diastolic blood pressure Provider Name and Address Organization Details Last Updated DateTime 4 170.18 cm 30.5 kg/m2 74413.5 1 g 97 % 97 % 78 /min 9 118 mm[Hg] 86 mm[Hg] CHRISTA JACOBSS [place] - [facility] 4 14:58:59 Date Recorded Body height Provider Name an d Address Organization Details Last Updated DateTime 03/17/2024 170.18 cm Debby Lionel [facility]ER[facility] - [facility] 03/17/2024 09:35:11 Date Recorded Body height Body mass index (BMI) Body weight Oxygen saturation Oxygen saturation in Arterial blood by Pulse oximetry Heart rate Pain severity - 0-10 verbal numeric rating [Score] - Reported Systolic blood pressure Diastolic blood pressure Provider Name and Address Organization Details Last Updated DateTime 4 170.18 cm 30.5 kg/m2 05692.5 1 g 97 % 97 % 80 /min 8 118 mm[Hg] 86 mm[Hg] CHRISTA COREY [place] - [facility] 4 09:03:31 Date Recorded Body height Body mass index (BMI) Body weight Oxygen saturation Oxygen saturation in Arterial blood by Pulse oximetry Heart rate Pain severity - 0-10 verbal numeric rating [Score] - Reported Systolic blood pressure Diastolic blood pressure Provider Name and Address Organization Details Last Updated DateTime 4 170.18 cm 30.5 kg/m2 93785.5 1 g 97 % 97 % 78 /min 7 118 mm[Hg] 84 mm[Hg] CHRISTA JACOBSS [place] - [facility] 4 10:58:32 Social History Question Answer Notes LastModified by Organizat ion Details LastModified Time Tobacco Smoking Status Never Smoker Debbykrystal Flowers null, [place] - [facility] 04/10/2023 08:42:26 Do You Have An Advance Directive? Yes [email or web address] Information n ot available 04/10/2023 What Is Your Level Of Alcohol Consumption? Occasional [email or web address] Information not available 04/10/2023 In The 14 Days Before Symptom Onset, Have You Had Close Contact With A Laboratory-confirm ed COVID-19 While That Case Was Ill? No [email or web address] Information n ot available 04/10/2023 In The 14 Days Before Symptom Onset, Have You Had Close Contact With A Person Who Is Under Investigation For COVID-19 While That Person Was Ill? No [email or web address] Information not available 04/10/2023 Have You Been To An Area Known To Be High Risk For COVID-19? No [email or web address] Information not available 04/10/2023 Are You Currently Employed? No [email or web address] Information not available 04/10/2023 Do You Have A Medical Power Of Property Controller? No [email or web address] Information not available 04/10/2023 Do You Use Any Illicit Or Recreational Drugs? No [email or web address] Information not available 04/10/2023 Do You Or Have You Ever Used Any Other Forms Of Tobacco Or Nicotine? No [email or web address] Information not available 04/10/2023 Sex: Female Functional Status None recorded. Mental Status None recorded. Family History Nothing Reported. Medical History Condition Response Coronary Artery Disease N Gout N Hernia N Head Trauma/Injury N Thyroid Problems Y Depression Y COPD N Anemia Y Heart Attack ([place]) N Ulcers N Diabetes N Anxiety Disorder Y Bleeding Disorder N Arthritis Y Tuberculosis N AIDS/HIV N Acid Reflux (GERD) Y Cancer N Stroke N Asthma Y Substance Abuse N Back Injury N High Cholesterol N Hepatitis N Liver Disease N Heart Disease N Headaches Y Fibromyalgia Y Hypertension N Osteoporosis Y Kidney Disease Y Gynecological HistoryNo gynecological history recorded. Obstetrics History GPAL:G 0 P 0 0 0 0 Past Encounters Encounter ID Performer Location Encounter Start Date Encounter Closed Date Diagnosis/Indication Diagnosis SNOMED-CT Code Diagnosis ICD10 Code Diagnosis Note [id number] Sagar Kidd MD [address] [place] [address] 04/10/2023 08:37:42 04/10/2023 11:25:37 Degeneration of lumbar intervertebral disc 41461529 M51.36 Lumbar radiculopathy 128 230957 M54.16 Lumbar post-laminectomy syndrome 744927221 M96.1 Postoperative care 87943 9007 Z48.89 Therapeuti c opioid induced constipation 0078572558 81282 K59.00 [id number] Sagar Kidd MD [address] [place] [address] 04/16/2023 10:06:30 04/16/2023 11:05:38 Degeneration of lumbar intervertebral disc 44318158 M51.36 Lumbar radiculopathy 128 360727 M54.16 Lumbar post-laminectomy syndrome 525148141 M96.1 Postoperative care 91149 9007 Z48.89 Therapeuti c opioid induced constipation 0606714841 33936 K59.00 [id number] Sagar Kidd MD [address] [place] [address] 04/23/2023 11:53:57 04/23/2023 12:21:34 Degeneration of lumbar intervertebral disc 48750557 M51.36 Lumbar post-laminectomy syndrome 416410216 M96.1 Lumbar radiculopathy 128 931423 M54.16 [id number] Sagar Kidd MD [address] [place] [address] 04/30/2023 08:54:17 04/30/2023 09:31:42 Degeneration of lumbar intervertebral disc 45672809 M51.36 Lumbar post-laminectomy syndrome 543950994 M96.1 Lumbar radiculopathy 128 619430 M54.16 [id number] Sagar Kidd MD [address] [place] [address] 3 07/16/2023 13:30:12 07/16/2023 15:00:24 Lumbar radiculopathy 366166930 M54.16 Lumbar post-laminectomy syndrome 015512551 M96.1 Degenerati on of lumbar intervertebral disc 45718135 M51.36 Inflammati on of sacroiliac joint 10900007 M46.1 [id number] Sagar Kidd MD [address] [place] [address] 07/31/2023 13:25:28 07/31/2023 14:29:22 Degeneration of lumbar intervertebral disc 00607209 M51.36 Lumbar post-laminectomy syndrome 018732481 M96.1 Lumbar radiculopathy 128 375302 M54.16 Closed fra cture of right wrist 9663305533 4034853 S62.91XD [id number] Sagar Kidd MD [address] [place] [address] 3 08/27/2023 08:52:34 08/27/2023 10:19:58 Lumbar radiculopathy 661773723 M54.16 Lumbar post-laminectomy syndrome 980023165 M96.1 Degenerati on of lumbar intervertebral disc 32483519 M51.36 [id number] Sagar Kidd MD [address] [place] [address] 09/09/2023 08:32:51 09/09/2023 10:39:27 Lumbar radiculopathy 827408778 M54.16 Lumbar post-laminectomy syndrome 604058528 M96.1 Degenerati on of lumbar intervertebral disc 96948101 M51.36 [id number] Sagar Kidd MD [address] [place] [address] 3 09/24/2023 08:54:15 09/24/2023 09:43:24 Lumbar radiculopathy 851001030 M54.16 Lumbar post-laminectomy syndrome 101872097 M96.1 Degenerati on of lumbar intervertebral disc 19288169 M51.36 [id number] Sagar Kidd MD [address] [place] [address] 3 10/15/2023 08:13:21 10/15/2023 09:37:25 Lumbar radiculopathy 492475501 M54.16 Lumbar post-laminectomy syndrome 475064607 M96.1 Degenerati on of lumbar intervertebral disc 14458973 M51.36 [id number] Sagar Kidd MD [address] [place] [address] 3 10/23/2023 10:15:49 10/23/2023 12:24:41 Lumbar radiculopathy 439525802 M54.16 Lumbar post-laminectomy syndrome 270676994 M96.1 Degenerati on of lumbar intervertebral disc 14242974 M51.36 [id number] Sagar Kidd MD [address] [place] [address] 3 10/29/2023 08:19:00 10/29/2023 09:36:11 Lumbar radiculopathy 795322293 M54.16 Lumbar post-laminectomy syndrome 152507296 M96.1 Degenerati on of lumbar intervertebral disc 89858744 M51.36 [id number] Sagar Kidd MD [address] [place] [address] 3 11/12/2023 08:16:12 11/12/2023 09:07:57 Lumbar radiculopathy 718910405 M54.16 Degenerati on of lumbar intervertebral disc 36212735 M51.36 Lumbar post-laminectomy syndrome 354097156 M96.1 [id number] Sagar Kidd MD [address] [place] [address] 3 11/27/2023 08:31:09 11/27/2023 09:36:38 Lumbar radiculopathy 499914548 M54.16 Degenerati on of lumbar intervertebral disc 31494350 M51.36 Lumbar post-laminectomy syndrome 332742629 M96.1 [id number] Sagar Kidd MD [address] [place] [address] 12/30/2023 08:08:17 12/30/2023 09:54:07 Lumbar radiculopathy 570053607 M54.16 Lumbar post-laminectomy syndrome 378681724 M96.1 Degenerati on of lumbar intervertebral disc 43091441 M51.36 Lumbar spondylosis 59498 0009 M47.896 Spinal kee nosis of lumbar region 10228767 M48.062 [id number] Sagar Kidd MD [address] [place] [address] 01/28/2024 10:32:04 01/28/2024 11:28:08 Lumbar radiculopathy 763907044 M54.16 Lumbar post-laminectomy syndrome 433914905 M96.1 Degenerati on of lumbar intervertebral disc 78444744 M51.36 [id number] Amna Wood NP [address] [place] [address] 03/01/2024 14:56:40 03/01/2024 15:37:21 Lumbar post-laminectomy syndrome 918045745 M96.1 Lumbar radiculopathy 128 090381 M54.16 Degenerati on of lumbar intervertebral disc 40550186 M51.36 [id number] LISY RICHARDSON NP [address] [place] [address] 03/17/2024 09:09:34 03/17/2024 10:16:18 Lumbar radiculopathy 732033446 M54.16 Lumbar post-laminectomy syndrome 081169909 M96.1 Degenerati on of lumbar intervertebral disc 27451001 M51.36 [id number] Sagar Kidd MD [address] [place] [address] 04/14/2024 09:00:29 04/14/2024 09:36:48 Lumbar post-laminectomy syndrome 893790675 M96.1 Lumbar radiculopathy 128 722134 M54.16 Degenerati on of lumbar intervertebral disc 04678964 M51.36 History of lumbar fusion 1559820523 9106 Z98.1 Long-term current use of opiate analgesic drug 1682036990 68409 Z79.891 [id number] Sagar Kidd MD [address] [place] [address] 05/12/2024 10:56:41 05/12/2024 12:53:48 Lumbar radiculopathy 586833735 M54.16 Lumbar post-laminectomy syndrome 777296430 M96.1 Degenerati on of lumbar intervertebral disc 75160973 M51.362 History of lumbar fusion 9274888773 9106 Z98.1 [id number] Sagar Kidd MD [address] [place] [address] 06/27/2024 14:56:46 06/27/2024 16:09:27 Degeneration of lumbar intervertebral disc 32810239 M51.362 History of lumbar fusion 8636621808 9106 Z98.1 Lumbar post-laminectomy syndrome 427047650 M96.1 Lumbar radiculopathy 128 854505 M54.16 Spasm 28676031 R25.2 Health Concerns Section Related Observation LastModified by Organization Detai ls LastModified Time None Recorded Concern Status LastModified by Organization Details LastModified Time None Recorded Advance Directives Directive Y: Payers Encounter Date Sequence Insurance Name Policy Number Policy Gibbs Covered Member ID Gibbs Member ID Guarantor Name 03/01/2024 1 [place] Sandie L [place] [id number] Sandie Zac 03/01/2024 2 [place] [id number] Jose [place] [id number] Sandie Zac 03/17/2024 1 [place] Sandie L [place] [id number] Sandie [place] 03/17/2024 2 [place] [id number] Jose [place] [id number] Sandie [place] 04/14/2024 1 [place] Sandie L [place] [id number] Sandie [place] 04/14/2024 2 [place] [id number] Jose Zac [id number] Sandie [place] 05/12/2024 1 [place] Sandie L Zac [id number] Sandie Zac 05/12/2024 2 [place] [id number] Jose [place] [id number] Sandie Zac 06/27/2024 1 [place] Sandie L [place] [id number] 66 Sandie [place] 06/27/2024 2 [place] [id number] Jose [place] [id number] Sandie Zac Notes Date Note Type Note Provider Name and Address Organization Details Recorded Time 03/01/2024 text/html Back PainReporte d bypatient.Location: lumbar;pain radiating to the foot Quality:aching Severity:worsening; pain level 9/10;severe (8-10);interference with sleep Duration:chronic Context:trauma; prior back problems Alleviating Factors:Nothing Aggravating Factors:movement/po sitioning; twisting; flexing back; extending back; worse at night; lifting; housework; walking; standing; sitting; weather Associated Symptoms:no fever; no weak limbs; no incontinence; no shortness of breath; no unintentional weight loss; no chills; no night sweats; no gait instability; no bowel/bladder symptoms; no recent increase in stress;numbness of the legs/feet;tingling Previous Injury:no prior injury to back Prior Imaging:BAMBI Wood NP [address], [address], [place] [facility] 03/01/2024 15:58:22 03/17/2024 text/html Back PainReporte d bypatient.Location: lumbar;pain radiating to the foot Quality:aching Severity:worsening; pain level 9/10;severe (8-10);interference with sleep Duration:chronic Context:trauma; prior back problems Alleviating Factors:Nothing Aggravating Factors:movement/po sitioning; twisting; flexing back; extending back; worse at night; lifting; housework; walking; standing; sitting; weather Associated Symptoms:no fever; no weak limbs; no incontinence; no shortness of breath; no unintentional weight loss; no chills; no night sweats; no gait instability; no bowel/bladder symptoms; no recent increase in stress;numbness of the legs/feet;tingling Previous Injury:no prior injury to back Prior Imaging:MRI LISY RICHARDSON NP [address], [address], [place] [facility] 03/23/2024 18:43:29 04/14/2024 text/html Back PainReporte d bypatient.Location: lumbar;pain radiating to the foot Quality:aching Severity:worsening; pain level 8/10;severe (8-10);interference with sleep Duration:chronic Context:trauma; prior back problems Alleviating Factors:Nothing Aggravating Factors:movement/po sitioning; twisting; flexing back; extending back; worse at night; lifting; housework; walking; standing; sitting; weather Associated Symptoms:no fever; no weak limbs; no incontinence; no shortness of breath; no unintentional weight loss; no chills; no night sweats; no gait instability; no bowel/bladder symptoms; no recent increase in stress;numbness of the legs/feet;tingling Previous Injury:no prior injury to back Prior Imaging:BAMBI Kidd MD [address], [address], [place] [facility] 04/14/2024 10:31:57 05/12/2024 text/html Back PainReporte d bypatient.Location: lumbar;pain radiating to the foot Quality:aching Severity:worsening; pain level 7/10;moderate (5-7);interference with sleep Duration:chronic Context:trauma; prior back problems Alleviating Factors:Nothing Aggravating Factors:movement/po sitioning; twisting; flexing back; extending back; worse at night; lifting; housework; walking; standing; sitting; weather Associated Symptoms:no fever; no weak limbs; no incontinence; no shortness of breath; no unintentional weight loss; no chills; no night sweats; no gait instability; no bowel/bladder symptoms; no recent increase in stress;numbness of the legs/feet;tingling Previous Injury:no prior injury to back Prior Imaging:MRI Sagar Kidd MD [address], [address], [place] - [facility] 05/12/2024 22:19:44 OBGyn Episode No OBEpisode recorded.
--- OUTSIDE RECORDS SUMMARY | 2024-11-10 21:46 | XMS_ITS | Data Portability ---
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 Plan of Treatment Reminders Order Date Submit Date Provider Last Modified By Organization Details Last Modified Time Details Appointments None recorded. Lab None recorded. Referral None recorded. Procedures None recorded. Surgeries None recorded. Imaging None recorded. Medication Orders doxycycline hyclate 100 mg capsule [address] [facility] [address] [facility] [place], [address], 3 16:23:13 montelukast 10 mg tablet [address] [facility] [address] [facility], [address], 3 16:23:13 omeprazole 40 mg capsule,del ayed release [address] [facility], [address] [place], [address], 2 17:46:40 omeprazole 40 mg capsule,del ayed release 2020 021 [facility], [address] [place], [address], 14:39:12 Patient TargetsNo targets recorded. Patient Instructions Encounter Date Encounter Id Patient Instructions Last Modified By Organization Details Last Modified Time 07/22/2021 [id number] 1. Reviewed rece nt thyroid U/S results with patient. Repeat U/S in 12 months 2. Flexible laryngoscopy performed - clinical photos obtained-she has evidence of laryngal pharyngeal reflux based on some edema of the arytenoids. 3. Standard GERD and voice hygiene precautions reviewed 4. Increase daily water intake. Avoid throat clearing and add more humidity. 5. Rx - Omeprazole 40mg PO QD-we will plan on a short course of this to see if this might take down the edema. Also made some dietary and lifestyle changes recommendations for her as well. 6. F/U in 2 months suleiman Not available 07/22/2021 14:45:38 10/01/2021 [id number] 1. We will braden nue with omeprazole for the time being. Her edema after surgery is likely contributing to her fullness in the throat. Any acid irritation can obviously make this worse. We will continue with the omeprazole for 2 more months. 2. Follow up in 3 months suleiman Not available 10/01/2021 14:42:09 01/07/2022 [id number] 1. Continue with GERD precautions and taking Omeprazole prn- I mentioned that there are some concerns regarding regular use of proton pump inhibitors in her case I think she can use it on an as-needed basis and still get relief. 2. Complete oral antibiotics and oral Prednisone as directed 3. Recommend patient take Mucinex with lots of water 4. F/u in 6 months [email or web address] Not available 01/07/2022 14:48:57 09/09/2022 [id number] 1. Discontinue taking Omeprazole. She has had a resolution of the symptoms that we have discussed regarding her laryngeal pharyngeal reflux. She still has some dehydrated mucosal changes causing some thickened mucus secretions. 2. Reviewed Nasopharyngeal hygiene precautions, including vocal rest, saltwater gargles, increased hydration, avoid medications with a drying effect (e.g. antihistamines, diuretics), utilizing sialogogues, nasal saline, and humidifiers as needed. (nasal saline provided to patieint) 3. f/u prn Not available 09/09/2022 15:49:59 03/03/2023 [id number] 1. Laryngoscopy performed ; clinical photos obtained. I do think the excessive coughing is caused some changes in the vocal cords and not the other way around. Would like to continue to monitor this and if she is not making progress in the next 2 weeks, would like to see her back for recheck. They will call to let us know. 2. Rx- [id number]- take 1 po bid x 14 days; Montelukast 10mg- take 1 po qd 3. F/u prn [email or web address] Not available 03/03/2023 16:53:04 Reason for Referral None Reported. Results Created Date Observation Date Name Description Value Unit Range Abnormal Flag Note LastModifiedBy Organization Detail LastModifiedTime 07/05/2007/02/2021 US, thyro id No observ ation record ed. [email or web address] [facility] [address] , [place], [address], 07/24/2021 13:24:23 Result Notes None recorded. Problems Name Problem SNOMED Code Status Onset Date Resolution Date Notes Provider Name and Address Organization Details Recorded Time Laryngoph aryngeal reflux 703784777 Active 2021 [facility] 14:36:[facility] Kidney stone 45356870 Active 2014 From Automated Load;Provi brittanie: Rae, Tavo;St atus: Active Not Available [facility] 6 02:57:08 Problem Notes None recorded. Procedures Surgical History Date Name Laterality Status Provider Name and Address Organization Details Recorded Time 03/03/20 23 Laryngoscopy Flex completed Verónica Duffon [facility] 03/03/2023 16:09:56 07/22/20 21 Laryngoscopy Flex completed STEVEN BENNETT III, MD [facility] [place], [address], [facility] 07/22/2021 14:44:03 Appendectomy completed Chely Bowen [facility] 07/22/2021 14:03:44 cholecystectomy completed Chely Wiseman [facility] 07/22/2021 14:03:55 hysterectomy completed Chely Wiseman [facility] 07/22/2021 14:04:06 Partial removal of colon completed Chely Wiseman [facility] 07/22/2021 14:04:22 insertion of infusion pump completed Chely Wiseman [facility] 07/22/2021 14:07:20 extraction of cataract completed Chely Bowen [facility] 07/22/2021 14:05:38 [facility] 14:06:36 closed [facility] fracture [facility]21 14:06:52 total replacement of hip completed [facility] 07/22/2021 14:07:36 repair of retina for retinal detachment completed Chely Wiseman [facility] 07/22/2021 14:07:45 Imaging Results Imaging Date Name Status LastModified by Organiz ation Details LastModified Time 07/02/2021 US, thyroid [place] [id number] [facility] [address], [place], [address], 07/24/2021 13:24:23 Procedure Notes None recorded. Medical Equipment None Reported. Allergies Allergen ID Allergen Name Allergen Category Reaction Reaction Severity Criticality Documentation Date Start Date Code Code System Note Provider Name and Address Organization Details Recorded Time Keflex medicatio n other Not available Not available 06/26/20162006 10146 7 RxNorm React ion: BLIST ERING ; Oliva nt: Creat ed By: Janessa Parsonsat ed Date: 06/12 8:31: 08 PM; Not Available [facility] 6 11:47:01 [id number] Bactrim medicatio n vomiting Not available Not available 06/26/20162014 88191 9 RxNorm React ion: NAUSE A AND VOMIT ING; Comme nt: Creat ed By: Nicole melendrez Date: 2014 9:53: 18 AM; [facility] 3 16:02:05 [id number] E-Mycin medicatio n other Not available Not available 06/27/2016200660 8 RxNorm React ion: KISHAN CARRANZA ; Oliva nt: Creat ed By: Janessa Cullen ed Date: 06/12 8:31: 25 PM; Not Available [facility] 6 07:42:37 [id number] cephalexi n medicatio n Not available Not available Not available 07/22/2021 2231 Rx[facility] 13:50:06 [id number] clindamyc in Not available Not available Not available Not available 07/22/2021 2582 RxNorm [facility] 13:50:17 [id number] codeine medicatio n Not available Not available Not available 07/22/2021 2670 Rx[facility] 13:50:25 [id number] Lyrica medicatio n Not available Not available Not available 07/22/2021 12337 1 RxNorm [facility] 13:50:36 [id number] Levaquin medicatio n Not available Not available Not available 07/22/2021 90365 2 RxNorm [facility] 13:50:47 Medications Name Sig Start Date Stop Date Status Note LastModified by Organization Details LastModified Time hydrocorti sone 5 mg tablet TAKE ONE TABLET BY MOUTH TWICE DAILY active Not Available Not Available No t Available cyclobenza benny 10 mg tablet TAKE 1 TABLET BY MOUTH THREE TIMES DAILY NEEDED FOR MUSCLE SPASM 09/09 completed Not Available Not Available Not Available promethazi ne-DM 6.25 mg-15 mg/5 mL oral syrup TAKE 5 ML BY MOUTH 4 TIMES DAILY NEEDED FOR COUGH active Not Available Not Available No t Available nystatin 100,000 unit/mL oral suspension TAKE 5 ML BY MOUTH 4 TIMES DAILY FOR 10 DAYS 09/09 completed Not Available Not Available Not Available prednisone 10 mg tablet TAKE 4 TABLETS BY MOUTH ONCE DAILY FOR 3 DAYS, THEN 3 TABS ONCE DAILY FOR 3 DAYS, THEN 2 TABS ONCE DAILY FOR 3 DAYS, THEN 1 TABLET ONCE DAILY FOR 3 DAYS 09/09 completed Not Available Not Available Not Available doxycyclin e hyclate 100 mg capsule Take 1 capsule twice a day by oral route for 14 days. 2022 active Not Available Not Available Not Avai lable ropinirole 1 mg tablet TAKE 1 TABLET BY MOUTH TWICE DAILY active Not Available Not Available No t Available quetiapine 300 mg tablet TAKE 1 TABLET BY MOUTH ONCE DAILY AT NIGHT active Not Available Not Available No t Available albuterol sulfate 2.5 mg/3 mL (0.083 %) solution for nebulizati on active Not Available Not Available Not Available azithromyc in 250 mg tablet 07/22 completed Not Available Not Available Not Available tizanidine 4 mg tablet 09/09 completed Not Available Not Available Not Available benzonatat e 200 mg capsule TAKE 1 CAPSULE BY MOUTH THREE TIMES DAILY NEEDED FOR COUGH 09/09 completed Not Available Not Available Not Available albuterol sulfate 1.25 mg/3 mL solution for nebulizati on USE 1 VIAL IN NEBULIZE R EVERY 6 HOURS NEEDED FOR WHEEZING active Not Available Not Available No t Available sumatripta n 100 mg tablet 07/22 completed Not Available Not Available Not Available promethazi ne 25 mg rectal suppositor y 07/22 completed Not Available Not Available Not Available promethazi ne 12.5 mg tablet TAKE 1 TABLET BY MOUTH THREE TIMES DAILY NEEDED FOR NAUSEA AND VOMITING active Not Available Not Available No t Available ondansetro n HCl 4 mg tablet TAKE 1 TABLET BY MOUTH EVERY 8 HOURS NEEDED FOR NAUSEA FOR VOMITING active Not Available Not Available No t Available prednisone 20 mg tablet TAKE 1 TABLET BY MOUTH ONCE DAILY 03/03 completed Not Available Not Available Not Available Neurontin 800 mg tablet Three times a day 07/22 completed Frequen cy: tid;Med ication Descrip tion: gabapen tin; Dosage: 1; Route:o ral; refills :5 Not Available Not Available Not Available sulfametho xazole 800 mg-trimeth oprim 160 mg tablet TAKE 1 TABLET BY MOUTH EVERY 12 HOURS FOR 10 DAYS active Not Available Not Available No t Available omeprazole 40 mg capsule,de layed release TAKE 1 CAPSULE BY MOUTH ONCE DAILY active Not Available Not Available No t Available doxycyclin e monohydrat e 100 mg tablet TAKE 1 TABLET BY MOUTH TWICE DAILY FOR 7 DAYS 09/09 completed Not Available Not Available Not Available simvastati n 40 mg tablet Daily 07/22 completed Frequen cy: daily; edicati on Descrip tion: simvast atin; Dosage: 1; Route:o ral; refills :0 Not Available Not Available Not Available Celebrex 200 mg capsule At Onset 07/22 completed Frequen cy: at onset; edicati on Descrip tion: celecox ib; Dosage: 2; Route:o ral; refills :5 Not Available Not Available Not Available levothyrox ine 88 mcg tablet TAKE 1 TABLET BY MOUTH ONCE DAILY FOR 90 DAYS active Not Available Not Available No t Available prednisolo ne acetate 1 % eye drops,susp ension 07/22 completed Not Available Not Available Not Available Imodium A-D 2 mg tablet Three times a day 07/22 completed Duratio n: 10 days;Fr equency : tid;Med ication Descrip tion: loperam adelfo; Dosage: 1; Route:o ral; refills :0; Quantit y:42 tablet Not Available Not Available Not Available sodium bicarbonat e 650 mg tablet TAKE 1 TABLET BY MOUTH TWICE DAILY active Not Available Not Available No t Available benzonatat e 100 mg capsule TAKE 1 CAPSULE BY MOUTH THREE TIMES DAILY NEEDED FOR COUGH active Not Available Not Available No t Available nortriptyl ine 10 mg capsule TAKE 1 CAPSULE BY MOUTH TWICE DAILY 09/09 completed Not Available Not Available Not Available cyanocobal ureña (vit B-12) 1,000 mcg/mL injection solution 07/22 completed Not Available Not Available Not Available ropinirole 0.5 mg tablet TAKE 1 TABLET BY MOUTH TWICE DAILY active Not Available Not Available No t Available Effexor XR 150 mg capsule,ex tended release Daily 07/22 completed Duratio n: 30 days;Fr equency : daily;ica on Descrip tion: venlafa xine; Dosage: 1 1/2; Route:o ral; refills :12 Not Available Not Available Not Available promethazi ne 25 mg tablet 07/22 completed Not Available Not Available Not Available Phospha Neutral 250 mg tablet 09/09 completed Not Available Not Available Not Available Isopto Atropine 1 % eye drops 07/22 completed Not Available Not Available Not Available budesonide 0.5 mg/2 mL suspension for nebulizati on USE 1 VIAL IN NEBULIZE R TWICE DAILY active Not Available Not Available No t Available montelukas t 10 mg tablet Take 1 tablet(s ) every day by oral route for 30 days. 2023 active Not Available Not Available Not Avai lable gabapentin 100 mg capsule 09/09 completed Not Available Not Available Not Available levofloxac in 500 mg tablet 07/22 completed Not Available Not Available Not Available methylpred nisolone 4 mg tablets in a dose pack TAKE DIRECTED START ON 01/06/2209/09 completed Not Available Not Available Not Available hydrocodon e 10 mg-chlorph eniramine 8 mg/5 mL oral susp extend.rel 12hr TAKE 5ML BY MOUTH EVERY 12 HOURS NEEDED FOR COUGH FOR UP TO 7 DAYS active Not Available Not Available No t Available albuterol sulfate HFA 90 mcg/actuat ion aerosol inhaler INHALE 2 PUFFS BY MOUTH EVERY 4 HOURS NEEDED FOR WHEEZING FOR SHORTNES S OF BREATH active Not Available Not Available No t Available fluticason e propionate 50 mcg/actuat ion nasal spray,susp ension USE 2 SPRAY(S) IN EACH NOSTRIL ONCE DAILY active Not Available Not Available No t Available fludrocort isone 0.1 mg tablet Two times a day 07/22 completed Frequen cy: bid;Med ication Descrip tion: fludroc ortison e; Dosage: 2; Route:o ral; refills :PRN 1 yr; Quantit y:60 tablet Not Available Not Available Not Available lamotrigin e 100 mg tablet TAKE 1 TABLET BY MOUTH TWICE DAILY active Not Available Not Available No t Available diazepam 5 mg tablet TAKE 1 TABLET BY MOUTH EVERY 8 HOURS NEEDED FOR ANXIETY, SLEEP OR MUSCLE SPASMS 09/09 completed Not Available Not Available Not Available amoxicilli n 875 mg-potassi um clavulanat e 125 mg tablet TAKE 1 TABLET BY MOUTH TWICE DAILY 09/09 completed Not Available Not Available Not Available Topamax 100 mg tablet Two times a day 07/22 completed Frequen cy: bid;Med ication Descrip tion: topiram ate; Dosage: 1; Route:o ral; refills :0 Not Available Not Available Not Available bacitracin -polymyxin B 500 unit-10,00 0 unit/gram eye ointment APPLY TO SUTURES THREE TIMES DAILY FOR 7 DAYS DIRECTED THEN BEGIN DAILY MASSAGE active Not Available Not Available No t Available oxycodone 5 mg tablet TAKE 1 TABLET BY MOUTH EVERY 4 HOURS NEEDED MODERATE OR SEVERE PAIN 09/09 completed Not Available Not Available Not Available neomycin 3.5 mg/g-polym yxin B 10,000 unit/g-dex ameth 0.1 % eye oint 07/22 completed Not Available Not Available Not Available Robinul Forte 2 mg tablet Three times a day 07/22 completed Frequen cy: tid;Med ication Descrip tion: glycopy rrolate ; Dosage: 1/2; Route:o ral; refills :0 Not Available Not Available Not Available cyclobenza benny 5 mg tablet TAKE 1 TABLET BY MOUTH THREE TIMES DAILY NEEDED FOR MUSCLE SPASM 09/09 completed Not Available Not Available Not Available rosuvastat in 20 mg tablet TAKE 1 TABLET BY MOUTH ONCE DAILY FOR 90 DAYS active Not Available Not Available No t Available rosuvastat in 40 mg tablet 07/22 completed Not Available Not Available Not Available memantine 10 mg tablet TAKE 1 TABLET BY MOUTH TWICE DAILY active Not Available Not Available No t Available duloxetine 30 mg capsule,de layed release TAKE 1 CAPSULE BY MOUTH ONCE DAILY 09/09 completed Not Available Not Available Not Available duloxetine 60 mg capsule,de layed release TAKE 1 CAPSULE BY MOUTH TWICE DAILY active Not Available Not Available No t Available eszopiclon e 3 mg tablet TAKE 1 TABLET BY MOUTH ONCE DAILY AT NIGHT active Not Available Not Available No t Available Vitamin C active Not Available Not Lindsay ilable Not Available fentanyl 1280 mcg/day active Not Available Not Available No t Available Vitamin D3 active Not Available Not Av ailable Not Available multivitam in active Not Available Not Available Not Available Ventolin HFA active Not Available Not Available Not Available lubiprosto ne 24 mcg capsule active Not Available Not Available Not Available Symbicort 160 mcg-4.5 mcg/actuat ion HFA aerosol inhaler INHALE 2 PUFFS BY MOUTH TWICE DAILY active Not Available Not Available No t Available cholecalci ferol (vitamin D3) 1,250 mcg (50,000 unit) capsule TAKE 1 CAPSULE BY MOUTH ONCE A WEEK active Not Available Not Available No t Available formoterol fumarate 20 mcg/2 mL solution for nebulizati on INHALE 1 VIAL BY NEBULIZE R TWICE DAILY active Not Available Not Available No t Available budesonide 1 mg/2 mL suspension for nebulizati on active Not Available Not Available Not Available Combigan 0.2 %-0.5 % eye drops 07/22 completed Not Available Not Available Not Available azelastine 205.5 mcg (0.15 %) nasal spray ADMINIST ER 2 SPRAYS IN EACH NOSTRIL TWICE DAILY active Not Available Not Available No t Available levothyrox ine 88 mcg capsule Take 1 capsule every day by oral route. 09/09 completed Not Available Not Available Not Available Probiotic active Not Available Not Lindsay ilable Not Available donepezil 23 mg tablet TAKE 1 TABLET BY MOUTH ONCE DAILY active Not Available Not Available No t Available lutein 20 mg tablet Take by oral route. active Not Available Not Available No t Available melatonin 10 mg capsule Take 10 mg every day by oral route. active Not Available Not Available No t Available Movantik 25 mg tablet TAKE 1 TABLET BY MOUTH ONCE DAILY 09/09 completed Not Available Not Available Not Available Narcan 4 mg/actuati on nasal spray active Not Available Not Available Not Available Ubrelvy 100 mg tablet active Not Available Not Available Not Available Nurtec ODT 75 mg disintegra ting tablet 03/03 completed Not Available Not Available Not Available Ajovy 225 mg/1.5 mL subcutaneo us auto-injec tor active Not Available Not Available Not Available Dupixent 300 mg/2 mL subcutaneo us pen injector active Not Available Not Available Not Available Vitals Date Recorded Body weight Body mass index (BMI) Body height Body temperature Heart rate Systolic blood pressure Diastolic blood pressure Provider Name and Address Organization Details Last Updated DateTime 1 52136.7 8 g 31.5 kg/m2 170.18 cm 97.5 [degF] 66 /min 140 mm[Hg] 85 mm[Hg] Chely Wiseman [facility] 1 14:12:02 Date Recorded Body height Body mass index (BMI) Body weight Body temperature Heart rate Oxygen saturation Oxygen saturation in Arterial blood by Pulse oximetry Systolic blood pressure Diastolic blood pressure Provider Name and Address Organization Details Last Updated DateTime 2 170.18 cm 31.5 kg/m2 79678.1 7 g 97.7 [degF] 92 /min 95 % 95 % 149 mm[Hg] 86 mm[Hg] Winnie Najeradominique [facility] 2 14:12:32 Date Recorded Body height Body mass index (BMI) Body weight Body temperature Heart rate Oxygen saturation Oxygen saturation in Arterial blood by Pulse oximetry Systolic blood pressure Diastolic blood pressure Provider Name and Address Organization Details Last Updated DateTime 2 170.18 cm 31.6 kg/m2 80111.6 6 g 97.3 [degF] 64 /min 93.01 % 93.01 % 163 mm[Hg] 89 mm[Hg] Monalisa Kaitlin [facility] 2 14:12:58 Date Recorded Body height Body mass index (BMI) Body weight Body temperature Heart rate Oxygen saturation Oxygen saturation in Arterial blood by Pulse oximetry Systolic blood pressure Diastolic blood pressure Provider Name and Address Organization Details Last Updated DateTime 3 170.18 cm 31.5 kg/m2 34270.0 7 g 98 [degF] 78 /min 95 % 95 % 132 mm[Hg] 75 mm[Hg] JanieFarideh [facility] 3 14:37:32 Date Recorded Body height Body mass index (BMI) Body weight Body temperature Heart rate Oxygen saturation Oxygen saturation in Arterial blood by Pulse oximetry Systolic blood pressure Diastolic blood pressure Provider Name and Address Organization Details Last Updated DateTime 3 170.18 cm 30.5 kg/m2 71082.5 1 g 98.6 [degF] 70 /min 92 % 92 % 161 mm[Hg] 83 mm[Hg] JanieFarideh [facility] 3 15:29:01 Social History None recorded. Functional Status None recorded. Mental Status None recorded. Family History Relationship Description Onset Age of this Age Resolved Age Notes LastModified by Organization Details LastModified Time Mother Malignant neoplasm of bone [email or web address] Not available 2020 14:02:14 Mother Heart disease [email or web address] Not available 2020 14:02:24 Mother Hypertensive disorder [email or web address] Not available 2020 14:02:37 Mother Acute stroke [email or web address] Not avail able 07/22/2021 14:02:59 Mother Diabetes mellitus [email or web address] Not available 2020 14:03:09 Sister Hypertensive disorder [email or web address] Not available 2020 14:02:37 Sister Diabetes mellitus [email or web address] Not available 2020 14:03:09 Medical History Condition Response Anxiety Disorder Y Anemia Y Arthritis Y Acid Reflux (GERD) Y Migraines Y Thyroid Problems Y Depression Y Asthma Y Kidney Disease Y Gynecological HistoryNo gynecological history recorded. Obstetrics History GPAL:G 0 P 0 0 0 0 Past Encounters Encounter ID Performer Location Encounter Start Date Encounter Closed Date Diagnosis/Indication Diagnosis SNOMED-CT Code Diagnosis ICD10 Code Diagnosis Note [id number] MD MAXIMILIANO CANELA III [facility] [address] [place] [address] 07/22/2021 13:46:28 07/22/2021 14:44:23 Multinodular goiter 892238082 E04.2 - R>L Chronic cough 73712034 R 05.3 - onset 03/2021 following significan t broncitis Clearing t hroat - hawking 457652334 R05.9 - constant Hoarse 60036275 R49.0 - mild Feeling of lump in throat 972317436 F45.8 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 Laryngopha ryngeal reflux 383324384 K21.9 [id number] MD MAXIMILIANO CANELA III [facility] [address] [facility] [place] [address] 10/01/2021 14:04:50 10/01/2021 14:40:49 Multinodular goiter 374294129 E04.2 - R>L Laryngopha ryngeal reflux 903533868 K21.9 Feeling of lump in throat 273010261 F45.8 R -Anterior Dissection 07/31/2021 -she likely still has some edema Chronic cough 21600554 R 05.3 - onset 03/2021 following significan t bronchitis -this has resolved Clearing t hroat - hawking 539448886 R05.9 - constant -cleared after omeprazole use Hoarse 86693073 R49.0 - mild Disorder o f uvula of palate 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 J39.9 [id number] MD MAXIMILIANO CANELA III [facility] [address] [place] [address] 01/07/2022 14:06:37 01/07/2022 14:37:57 Multinodular goiter 162026439 E04.2 - R>L Laryngopha ryngeal reflux 734915864 K21.9 Feeling of lump in throat 564854040 F45.8 R -Anterior Dissection 07/31/2021 -she likely still has some edema Chronic cough 82966929 R 05.3 - onset 03/2021 following significan t bronchitis -this has resolved Clearing t hroat - hawking 107320164 R05.9 - constant -cleared after omeprazole use Acute bronchitis 5126424 2 J20.9 Currently on steroids and Augmentin? improved Inspiratory wheezing 315 21175 R06.2 - secondary to acute bronchitis . [id number] MD MAXIMILIANO CANELA III [facility] [address] [place] [address] 09/09/2022 14:30:54 09/09/2022 16:01:43 Laryngopharyngeal reflux [id number] K21.9 Nasal mucosa dry 9403086 2 J34.89 Pharyngeal dryness 20570 8009 J39.2 [id number] MD MAXIMILIANO CANELA III [facility] CL[facility] [address] [place], MAXIMILIANO [address] 03/03/2023 15:04:46 03/04/2023 10:24:21 Chronic cough 04702386 R05.3 - onset 03/2021 following significan t bronchitis -this has resolved Change in voice [id number] 5 R49.9 Laryngopha ryngeal reflux 400268197 K21.9 History of pertussis 161 865301 Z87.09 I do not know if she is totally cleared this from her system Xerostomia 46314415 K11. 7 Denture present 10934758 5 Z97.2 Respiratory crackles 484 38019 R09.89 Acute bronchitis 8072926 2 J20.9 Currently on steroids and Augmentin? 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 Health Concerns Section Related Observation LastModified by Organization Detai ls LastModified Time None Recorded Concern Status LastModified by Organization Details LastModified Time None Recorded Advance Directives Directive None Recorded Payers Encounter Date Sequence Insurance Name Policy Number Policy Gibbs Covered Member ID Gibbs Member ID Guarantor Name 07/22/2021 1 [place] Sandie L [place] [id number] Sandie L [place] 07/22/2021 2 [employer] (INDEMNITY) [id number] Jose Zac [id number] Sandie L Zac 10/01/2021 1 [place] L [place] [id number] Sandie L Zac 10/01/2021 2 [place] [id number] Jose [place] [id number] Sandie L Zac 01/07/2022 1 [place] L [place] [id number] Sandie L [place] 01/07/2022 2 [place] [id number] Jose [place] [id number] Sandie L Zac 09/09/2022 1 [place] Sandie L Zac [id number] Sandie L Zac 09/09/2022 2 [place] [id number] Jose [place] [id number] Sandie L [place] 03/03/2023 1 [place] [id number] Sandie L [place] 03/03/2023 2 [place] [id number] Jose Frank [id number] Sandie Frank Notes Date Note Type Note Provider Name and Address Organization Details Recorded Time 07/22/2021 text/html Sandie Frank is seen today, referred by MACHINE CEMENTER Meryl Goodson, for evaluation of enlarged thyroid and chronic cough. She says that she feels like there is drainage or something stuck in her throat all the time. This all started in March following a significant episode of bronchitis. It has gotten better overall but still the lingering dry cough, clearing throat, and feeling of tightness in the throat. Her voice is weakened somewhat. She was allergy tested this fall and results were negative. She did have a thryoid U/S on 07/02/21 that revealed normal size gland but with multiple nodules bilaterally. The largest nodule on the right was 1.2cm and left 1.1cm. She denies a history of cancer. She denies a family history of thyroid disease. She does have a history of hypothyroidism. STEVEN BENNETT III, MD [address] [place] [address], [phone], [facility] 07/22/2021 14:46:28 10/01/2021 text/html The patient is h ere for evaluation of dysphagia. She had recent cervical surgery with fusion of C6-C7. She has noted she has some problems swallowing and feeling like a marble is in her throat. She is not had any choking. She notes that after being on omeprazole her throat clearing is improved significantly. She denies any neck pain or limitation of mobility. STEVEN BENNETT III, MD [address] [place] [address], [phone], [facility] 10/01/2021 14:42:38 01/07/2022 text/html [facility] laryngopharyngeal reflux, hoarseness, globus sensation, and throat clearing. She has been recommended to observe GERD precautions and take Omeprazole 40mg daily. She does notice improvement in her overall throat symptoms since beginning reflux treatment. She is no longer clearing her throat, and her chronic cough is much improved. She is currently being treated for acute Bronchitis an oral antibiotic and oral steroids. She has been allergy tested in the past with negative results. She was not tested for Covid. Of note, she did have a thryoid U/S on 07/02/21 that revealed normal size gland but with multiple nodules bilaterally. The largest nodule on the right was 1.2cm and left 1.1cm. She denies a history of cancer. She denies a family history of thyroid disease. She does have a history of hypothyroidism. [place], [address], [facility] 01/07/2022 14:49:16 09/09/2022 text/html Sandie visits us i n office today to f/u on laryngopharyngeal reflux. Today Sandie states that she has been doing well, but he does still feel a mild globus sensation in her throat. She does mention that she recently got over Bronchitis (Jun 2022) which may be contributing to current symtpoms. She is still taking omeprazole QD, which she believes has only been mildly effective.Sandie uses Flonase and Azelastine QD to help with residual congestion as a result of having bronchitis. MD [place], [address], [facility] 09/09/2022 15:52:32 03/03/2023 text/html Sandie comes in to day for evaluation of a persistent cough and vocal changes following a bout of wooping cough (October 2022). Her cough becomes worse when she speaks for a longer period of time. She is drinking plenty of water. She has been evaluated by Pulmonology already and treated with oral antibiotics (Augmentin and Bactrim). She is taking Benzonatate 100mg twice daily for her cough currently. She does have a history of GERD/LPR which has been treated with Omeprazole daily. MD [place], [address], [facility] 03/03/2023 16:53:31 OBGyn Episode No OBEpisode recorded.
== END 2024-11-09 23:59 | disposition home or self-care (01) ==
LOC: LAB 08:09
PROVIDERS: PCP Internal Medicine Adolescent Medicine; Visit Provider Physical Medicine & Rehabilitation
DX: R25.2 Cramp and spasm (principal)
CPT/HCPCS: 36415; 81001; 85025; 86140

== ENCOUNTER 2024-12-20 08:58 | Outpatient (RCR) | payer MEDICARE, BC, SELFPAY ==
--- NOTE | 2024-12-20 18:09 | HMH.PTOPEV ---
PT Outpatient Evaluation Rehab PT Outpatient Evaluation Start: 12/20/24 09:01 Freq: Status: Active Protocol: Document 12/20/24 09:01 MARIE (Rec: 12/20/24 13:50 MARIE [id number]) E-signed By Amna Arizmendi, PT Outpatient Therapy Subjective History Subjective History Pt is a 69 y/o female who reports generalized weakness, muscle spasms and altered balance following a lumbar fusion of L3, L4, L5 on . Pt reports history of cervical fusion of C6, C7 in 2020 and lumbar fusion of L4, L5 in 2021. Pt also reports she had a pain pump placed in 2005, states she is currently taking Baclofen and Dilaudid for muscle spasms and pain. Pt states every time she has a surgery she gets really weak and off balance, states she was once told by a neurologist that it was a reaction to anesthesia. Pt reports after her first lumbar fusion in 2021 she was weak and wobbly for ~3 months and then improved; however, this time symptoms are lasting longer. Pt states she had imaging performed of her low back ~1 month ago at her surgeon's office without significant findings. Pt states she continues to have severe BLE burning pain and muscle spasms , although muscle spasms are now less intense overall after starting Baclofen. Pt reports pain/spasms are worse with weightbearing activities and states she feels like she is walking on gravel. Pt reports since her surgery in March she has attended [facility] and has received HHPT/OT. Pt reports she returned home in July of last year and was bed bound for ~6 weeks with inability to transfer without use of a Tonio lift. Pt reports her seated balance is improving but sometimes she still falls forward or to the side without use of her arms. Pt states she requires assistance from her to maintain her balance for all functional transfers, standing and walking. Pt reports her knees feel weak like they will buckle underneath her. Pt states she is scheduled to have gel injections in her knees next week for knee pain. Pt denies falls or dizziness. Pt states she has a FWW she uses for ambulation, states she is able to stand for ~10 minutes and take ~10 steps although is unable to walk in a straight line. Pt reports she requires assistance for lower body dressing and showering/bathing as well. Pt states she has been performing sit to stands and some standing and seated exercises at home daily with fair tolerance. Pt reports she returns to her surgeon at the end of January for her next follow-up appointment. Medical History: degenerative disc disease (requiring chronic opioid pain management ), obesity, hypothyroidism, hyperlipidemia, hypertension, asthma, and multiple prior abdominal surgeries ( cholecystectomy, appendectomy, hysterectomy, and colectomy), frontal lobe dementia New diagnosis of cancer in past 12 No months? Chief Complaint Pain,Gives out/Unstable, Paresthesia,Weakness Symptom Type Throb,Sharp,Dull,Burning, Numbness,Tingling Symptoms Relieved By Rest/Positioning Symptoms Aggravated By Standing,Physical Activity, Walking Current Functional Limitations Reaching,Lifting,Housework, Dressing,Standing,Sitting, Walking,Balance Symptom Description Constant but Variable Level of pain today (0-10) 7 Pain scale - at its best (0-10) 6 Pain scale - at its worst (0-10) 8 Lumbopelvic Eval Posture Lumbar Spine Posture Standing Position Decreased Lordosis Assistive device Assistive Devices Wheelchair Gait Observation General Gait Pattern Observation Ataxic Gait Manual Muscle Test Right Knee Extension Strength Grade 3+ Fair+ Knee Flexion Strength Grade 4- Good- Hip Flexion Strength Grade 3+ Fair+ Hip Abduction Strength Grade 3+ Fair+ Hip Adduction Strength Grade 3+ Fair+ Hip Extension Strength Grade 3 Fair Ankle Dorsiflexion Strength Grade 4 Good Left Knee Extension Strength Grade 3+ Fair+ Knee Flexion Strength Grade 4- Good- Hip Flexion Strength Grade 3+ Fair+ Hip Abduction Strength Grade 3+ Fair+ Hip Adduction Strength Grade 3+ Fair+ Hip Extension Strength Grade 3 Fair DTR Rt Patellar 1+ Lt Patellar 1+ Rt Gastroc/Soleus 1+ Lt Gastroc/Soleus 1+ Altered Sensation Bilateral LE Dermatome Level L4,L5,S1 Comment increased sensitivity with light touch sensation Oswestry Index Section 1 Pain Intensity The pain comes and goes and is severe Section 2 Personal Care (Washing,Dresing) my way of washing or dressing even though it causes some pain Section 3 Lifting I can only lift very light weights at most Section 4 Walking I cannot walk at all without increasing pain Section 5 Sitting Pain prevents me from sitting for more than one hour Section 6 Standing I cannot stand more than 10 minutes without increasing pain Section 7 Sleeping Because of my pain, my normal night's sleep is less than 6 hours sleep Section 8 Social Life Pain has restricted my social life to my home Section 9 Traveling Pain restricts me to short necessary journeys under 30 minutes Section 10 Changing Degreee of Pain My pain is gradually getting worse Score and Risk Level Oswestry Sc 35 Oswestry Risk Level Completely Disabled Miscellaneous Dx PT Eval Objective Objective Observations: Proximal muscle weakness (hips/core) with altered distal sensation of BLE; incision well healed without SOI infection Special tests: negative LE dysdiadochokinesia testing - difficulty with heel/curiel testing due to hip flexor weakness Lumbar AROM: unable to test due to altered balance this date Balance: dynamic seated balance- fair, standing balance- poor to fair with significant sway noted requiring min-modAx1 Transfers: modAx1 with sit to stand transfer from wheelchair with required use of UE Outpatient Therapy Assessment Impairments Problems/Impairmments Impaired Strength,Impaired Endurance,Impaired Transfers, Impaired Gait Pattern,Impaired Walking,Impaired Standing, Impaired Dressing,Impaired Shower/Bathing,Impaired Household Care,Impaired Stair Climbing,Impaired Incline Stepping,Impaired Stepping on Uneven Surface,Impaired Squatting,Impaired Bending, Impaired Balance,Impaired VIRGEN Score,Subjective C/O Pain, Impaired Self Care/Self Management Prognosis Rehab Potential Good Clinical Impression Consistent with Diagnosis Yes Short Term Goals Number of Weeks 4 Improve Transfers Yes: perform bed mobility with SBA to decrease burden of care Improve Gait Pattern without Assistive Yes: 25-50ft with FWW and Device minAx1 to assist with function Complex Commercial Litigation Paralegal Goals Number of Weeks 8 Increase Strength Yes: BLE MMT to 4/5 grossly to assist with function/gait Improve Transfers Yes: sit to stand from standard chair I Increase Ability to Walk Yes: 50-100ft with LRD and proper mechanics to decrease fall risk Improve Oswestry Score Yes: Improve score to moderate -severe disability category to improve overall QOL Decrease Subjective C/O Pain Yes: Improve pain at worst to 4-6/10 to improve overall QOL Outpatient Therapy Plan of Care Treatment Plan May Include Therapeutic Exercise Including Home Yes Exercise Program Manual Therapy Techniques Yes Neuromuscular Re-education Yes Therapeutic Activities to Return to Yes Previous Functional/Work Level Gait Training Yes ADL/Self Care Education Yes Thermal Modalities Yes Massage Yes Manual Lymphatic Drainage Yes Wound Care Yes Group Therapy for Medicare Yes Eval/Re-Eval Yes Frequency Times per week 2-3 Duration Number of Weeks 8 Addendums This patient is a candidate for social No or vocational rehab? Patient/Guardian verbally acknowledges Yes understanding of treatment program and consents to further treatment? Patient/Guardian verbally acknowledges Yes understanding of diagnosis, prognosis and goals for treatment? Eval Complexity PT Charges 07154 - Moderate Complexity Shoulder/Elbow Eval Shoulder Objective Measurements Elbow Objective Measurements PHYSICIAN CERTIFICATION: I certify the specified therapy services for Sandie Frank are required, authorized, and reviewed every 30 days.
== END 2024-12-20 23:59 | disposition home or self-care (01) ==
LOC: PT 08:58
PROVIDERS: PCP Internal Medicine Adolescent Medicine; Visit Provider Internal Medicine Adolescent Medicine
DX: G60.9 Hereditary and idiopathic neuropathy, unspecified (principal); M47.814 Spondylosis without myelopathy or radiculopathy, thoracic region
CPT/HCPCS: 97163

== ENCOUNTER 2024-12-20 09:02 | Outpatient (RCR) | payer MEDICARE, BC, SELFPAY | END 2024-12-20 23:59 | disposition home or self-care (01) | LOC: OT 09:02 | PROVIDERS: PCP Internal Medicine Adolescent Medicine; Visit Provider Internal Medicine Adolescent Medicine | DX: G60.9 Hereditary and idiopathic neuropathy, unspecified (principal); M47.814 Spondylosis without myelopathy or radiculopathy, thoracic region | CPT/HCPCS: 97110; 97166 ==

== ENCOUNTER 2025-01-23 08:29 | Outpatient (CLI) | payer MEDICARE, BC, SELFPAY ==
--- OUTSIDE RECORDS SUMMARY | 2024-12-07 13:10 | XMS_ITS | Encounter Summary ---
Author Organization Healthcare Address [address] [place] [address] Care Team Providers Care Wrapper Sizer Name Role Phone Marc Rodriguez MD Primary Care Provider [phone] Edgardo Zuñiga MD Unavailable [phone] Giulia Briggs PA Unavailable [phone] Edgardo Zuñiga MD Unavailable [phone] Esther Mathew PA Unavailable [phone] Reason for Visit * Reason Comments Follow-up Encounter Details Date Type Department Care Team (Late st Contact Info) Description 12/07/2024 1:10 PM EDT Office Visit [facility] [address] [place] [address] Suzan Galindo DO [address] [facility] [address] [place] [address] Cervical cord compression with myelopathy (CMS/HCC); Total self-care deficit; Impaired cognition Social History Tobacco Use Types Packs/Day Years Used Date Smoking Tobacco: Never Smokeless Tobacco: Never Alcohol Use Standard Drinks/Week Comments Never 0 (1 standard drink = 0.6 oz pur e alcohol) Humiliation, Afraid, Rape, and Kick questionnair e Answer Date Recorded Within the last year, have y ou been afraid of your partner or ex-partner? No 05/13/2024 Within the last year, have y ou been humiliated or emotionally abused in other ways by your partner or ex-partner? No Within the last year, have y ou been kicked, hit, slapped, or otherwise physically hurt by your partner or ex-partner? No 05/13/2024 Within the last year, have y ou been raped or forced to have any kind of sexual activity by your partner or ex-partner? No 05/13/2024 PHQ-2 Answer Date Recorded Patient Health Questionnaire-2 Score 0 12/07/2024 Hunger Vital Sign Answer Date Recorded Within the past 12 months, y ou worried that your food would run out before you got the money to buy more. Never true 05/13/20 24 Within the past 12 months, t he food you bought just didn't last and you didn't have money to get more. Never true 05/13/2024 PRAPARE - Transportation Answer Date Re corded In the past 12 months, has l ack of transportation kept you from medical appointments or from getting medications? No 05/03 In the past 12 months, has l ack of transportation kept you from meetings, work, or from getting things needed for daily living? No 05/13/2024 Housing Stability Vital Sign Answer Shant e Recorded In the last 12 months, was t here a time when you were not able to pay the mortgage or rent on time? No 05/13/2024 Number of Places Lived in the Last Year Not on f ile 05/13/2024 In the last 12 months, was t here a time when you did not have a steady place to sleep or slept in a senior care (including now)? No 05/13/2024 PHQ-9 Answer Date Recorded Patient Health Questionnaire-9 Score 0 07/05/2024 Utilities Answer Date Recorded In the past 12 months has th e electric, gas, oil, or water company threatened to shut off services in your home? No 05/13/2024 Comments No Sex and Gender Information Value Date Recorded Sex Assigned at Female 07/31/2021 6:10 AM EST Legal Sex Female 8:40 PM EDT Gender Identity Female 07/31/2021 6:10 AM EST Sexual Orientation Not on file documented as of this encounter Last Filed Vital Signs Vital Sign Reading Time Taken Comments Blood Pressure 124/73 12/07/2024 12:47 PM EDT Pulse 77 12/07/2024 12:47 PM EDT Temperature - - Respiratory Rate - - Oxygen Saturation 95% 12/07/2024 12:47 PM EDT Inhaled Oxygen Concentration - - Weight 88 kg (194 lb 0.1 oz) 12/07/2024 12:47 PM EDT Height 170.2 cm (5' 7 ) 12/07/2024 12:47 PM EDT Body Mass Index 30.39 12/07/2024 12:47 PM EDT documented in this encounter Functional Status * Over the past 2 weeks, how often have you been bothered by any of the following problems? Question Answer Date of Assessment Author Little interest or pleasure in doing things Not at all 12/07/2024 12:51 PM EDT Preeti Delacruz Feeling down, depressed, or hopeless Not at all 01/2025 12:51 PM EDT Preeti Delacruz Patient Health Questionnaire-2 Score 0 01/2025 12:51 PM EDT Preeti Delacruz * Calculated C-SSRS Risk Score (Lifetime/Recent) Answer Date of Assessment Author No Risk Indicated 12/07/2024 12:51 PM EDT Nixon Delacruz * If you checked off any problems on this questionnaire so far, Question Answer Date of Assessment Author How difficult have these problems made it for you to do your work, take care of things at home, or get along with other people? Not difficult at all 12/07/2024 12:51 PM EDT Preeti Delacruz * Question Answer Date of Assessment Author 1. Wish to be (Past 1 Month) No 025 12:51 PM EDT Preeti Delacruz 2. Non-Specific Active Suici arpan Thoughts (Past 1 Month) No 12/07/2024 12:51 PM EDT Preeti Delacruz 6. Suicidal Behavior (Lifetime) No 12:51 PM EDT Preeti Delacruz documented as of this encounter Miscellaneous Notes * Patient Instructions - Suzan Galindo DO - 12/07/2024 1:10 PM EDT Med reviewed Would recommend increase of pump concentration of baclofen to 400 mcg/ml Refill meds RTC 3-4 months * Progress Notes - Suzan Galindo DO - 12/07/2024 1:10 PM EDT PHYSICAL MEDICINE AND REHABILITATION OUTPATIENT CLINIC NOTE Chief Complaint: muscles spasms that are bothersome, incomplete paraplegia with superimposed LUE weakness and ataxia Background History: Sandie Frank is a 69 y.o. year old female with a history of HLD, hypothyroidism, obesity, asthma, chronic neck and back pain s/p multiple surgeries with most recent surgery (L3-5 TLIF on 03/18/24). Post operatively pt noted to have L facial droop, cognitive deficits and LUE weakness which was felt to be a TIA. Pt then transitioned to [facility] for inpatient rehab with then dc to [facility] in mid April. 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 Interval history: Patient returns clinic today accompanied by her . Last seen in clinic 09/06/24 at which time patient was continued on baclofen & dantrolene for continued spasticity & intermittent painful spasms. Discussed possibility of adding baclofen to intrathecal pump (managed by Dr. King), however, wished to continue PO baclofen at that time. Patient was also scheduled for MRI C-spine for further evaluation of hemicord lesion as noted above. Patient had EMG with Dr. Blanca on 09/21 which showed sensorimotor peripheral polyneuropathy as well as moderate L median neuropathy at the wrist (no evidence of L C5-T1 or L2-S2 radiculopathy). She notes MRI with no further changes and nothing more tiarra done. Also since then has spoken with Dr. Kidd and have added Baclofen 200 mcg/ml to her pump which has helped but was told to stop her baclofen but then was having lots of spasms so still taking 10 mg qid. Want my opinion as to what to do to help the spasms and the plan for her meds. No change in bowel or bladder. Has completed HH and to transition to OTS in a few weeks. Still primarily WC reliant. Can come to stand with assistance. Details of past medical history, surgical history, family history, and social history reviewed in the medical record. Allergies: Allergies Allergen Reactions Nirmatrelvir-Ritonavir Other - please document in the comment field Pt stated it reacted with pt's pain pump and increased effects of fentanyl Cephalexin Hives, Itching and Rash Erythromycin Hives, Itching and Rash Gabapentin Hallucinations Clindamycin Rash Codeine Other - please document in the comment field Patient has a pain pump in place with fentanyl Levofloxacin Rash Rash in mouth with itching 4 years ago per Meropenem Rash is unsure if this is a true allergy Pregabalin Other - please document in the comment field Hallucinations with a high dose Sulfamethoxazole-Trimethoprim Other - please document in the comment field Medications: Current Outpatient Medications: acetaminophen (Tylenol) 500 MG tablet, Take 2 tablets (1,000 mg) by mouth every 6 (six) hours., Disp: , Rfl: amLODIPine (Norvasc) 5 MG tablet, Take 1 tablet (5 mg) by mouth daily., Disp: , Rfl: aspirin 81 MG EC tablet, Take 1 tablet (81 mg) by mouth daily., Disp: , Rfl: baclofen (Lioresal) 10 MG tablet, Take 1 tablet (10 mg) by mouth 5 (five) times a day., Disp: 300 tablet, Rfl: 1 busPIRone (Buspar) 5 MG tablet, Take 1 tablet (5 mg) by mouth 3 (three) times a day., Disp: 90 tablet, Rfl: 1 calcium carbonate (Tums) 500 MG chewable tablet, Chew 1 tablet (500 mg) daily., Disp: , Rfl: dantrolene (Dantrium) 50 MG capsule, Take 2 capsules (100 mg) by mouth 4 (four) times a day., Disp:240 capsule, Rfl: 1 denosumab (Prolia) 60 MG/ML injection, Inject 1 mL (60 mg) under the skin every 6 (six) months. DueOctober 2023, Disp: , Rfl: donepezil (Aricept) 23 MG tablet, Take 1 tablet by mouth once daily, Disp: 30 tablet, Rfl: 0 DULoxetine (Cymbalta) [address] capsule, Take 1 capsule (60 mg) by mouth 2 (two) times a day., Disp:, Rfl: Fluticasone Furoate-Vilanterol 100-25 MCG/ACT aerosol powder , Inhale 1 puff Daily., Disp: , Rfl: galcanezumab-gnlm (Emgality) 120 MG/ML injection, Inject 1 Syringe (120 mg) under the skin every 30(thirty) days., Disp: 1 each, Rfl: 11 hydrocortisone (Cortef) 5 MG tablet, Take 1 tablet (5 mg) by mouth 2 (two) times a day., Disp: , Rfl: Implanted pain pump, by Implant route. Dilaudid intrathecal pump at 10 mg/mL with a daily dose of 10.995mg per day., Disp: , Rfl: lamoTRIgine (LaMICtal) 100 MG tablet, Take 1 tablet (100 mg) by mouth 2 (two) times a day., Disp: 180 tablet, Rfl: 3 levothyroxine (Synthroid, Levoxyl) 88 MCG tablet, Take 1 tablet (88 mcg) by mouth daily before breakfast., Disp: , Rfl: Linzess 72 MCG capsule capsule, Take 1 capsule by mouth daily., Disp: , Rfl: Melatonin 10 MG tablet, Take 10 mg by mouth every night., Disp: , Rfl: memantine (Namenda) 10 MG tablet, Take 1 tablet (10 mg) by mouth 2 (two) times a day., Disp: 180 tablet, Rfl: 3 Menthol, Topical Analgesic, (BIOFREEZE EX), Apply topically., Disp: , Rfl: montelukast (Singulair) 10 MG tablet, Take 1 tablet (10 mg) by mouth nightly., Disp: , Rfl: naloxone (Narcan) 4 mg/0.1 mL nasal spray, 1. Give 1 spray in nostril for no/slow breathing or cannot wake after opioid use 2. Call 911 3. Repeat in other nostril if symptoms continue, Disp: , Rfl: ondansetron (Zofran) 4 MG tablet, Take 1 tablet (4 mg) by mouth every 8 hours as needed for nausea., Disp: , Rfl: pantoprazole (Protonix) 40 MG EC tablet, Take 1 tablet (40 mg) by mouth daily. Do not crush, chew, or split., Disp: , Rfl: polyethylene glycol (Miralax) 17 GM/SCOOP powder, Take 17 g by mouth daily as needed., Disp: , Rfl: QUEtiapine (SEROquel) 300 MG tablet, Take 1 tablet (300 mg) by mouth nightly., Disp: , Rfl: rosuvastatin (Crestor) 20 MG tablet, Take 1 tablet (20 mg) by mouth nightly., Disp: , Rfl: simethicone (Mylicon) 80 MG chewable tablet, Chew 1 tablet (80 mg) every 6 hours as needed., Disp: , Rfl: Trulance 3 MG tablet, Take 1 tablet by mouth daily., Disp: , Rfl: ubrogepant (Ubrelvy) 100 MG tablet, Take 1 tablet (100 mg) by mouth 1 (one) time if needed for migraine for up to 1 dose. After 2 hours, a second dose may be taken if needed. Maximum dose: 200 mg in 24-hour period., Disp: 10 each, Rfl: 3 dantrolene (Dantrium) 25 MG capsule, Take 3 capsules (75 mg) by mouth 4 (four) times a day. (Patient not taking: Reported on 12/07/2024), Disp: , Rfl: diazePAM (Valium) 2 MG tablet, Take 1 tablet (2 mg) by mouth every 6 (six) hours if needed (Severe muscle spasm). (Patient not taking: Reported on 12/07/2024), Disp: , Rfl: Dupilumab (Dupixent) 300 MG/2ML solution auto-injector, , Disp: , Rfl: oxyCODONE (Roxicodone) 10 MG immediate release tablet, Take 1 tablet (10 mg) by mouth every 4 (four) hours if needed for severe pain. (Patient not taking: Reported on 12/07/2024), Disp: , Rfl: sodium bicarbonate 650 MG tablet, Take 1 tablet (650 mg) by mouth nightly. (Patient not taking: Reported on 12/07/2024), Disp: , Rfl: ROS: 14 point ROS negative except for above. Physical Examination: 06/22/2024 10:57 AM 07/05/2024 9:53 AM 09/06/2024 9:58 AM 09/21/2024 11:49 AM 09/26/2024 12:11 PM 2024 2:14 PM 12/07/2024 12:47 PM Vitals Systolic 109 131 126 131 136 122 124 Diastolic 68 71 70 74 68 68 73 Heart Rate 66 68 63 71 65 77 Temp 36.3 C Resp 16 16 Height (cm) 170.2 cm 170.2 cm 170.2 cm 170.2 cm 170.2 cm 170.2 cm 170.2 cm Weight (kg) 94.348 kg 95.255 kg 92.534 kg 92.534 kg 95.255 kg 95.255 kg 88 kg BMI 32.58 kg/m2 32.89 kg/m2 31.95 kg/m2 31.95 kg/m2 32.89 kg/m2 32.89 kg/m2 30.39 kg/m2 BSA (m2) 2.11 m2 2.12 m2 2.09 m2 2.09 m2 2.12 m2 2.12 m2 2.04 m2 Visit Report Report Report Report Report Report Report General Apperance: Awake, well groomed, in no acute distress, sitting in [facility] Ear, Nose, Mouth and Throat: Atraumatic, normocephalic, moist oral mucosa, no pallor Eyes: Normal conjunctivae, no icterus. Respiratory: No use of accessory muscles during breathing. Symmetric chest wall rise Cardiovascular: No edema bilaterally Gastrointestinal: Soft, non-tender, non-distended Skin: No evidence of rash on areas of exposed skin Heme/lymph/immune: no bruising, no lymphadenopathy Musculoskeletal: There is no obvious kyphosis or scoliosis. Midline lumbar surgical incision. Pump located on right superficial lumbar region. Neuro- alert and oriented x 3, no dysarthria, very mild L subtle facial droop, decreased sensation on the LUE in all dermatomes as well as BLE which is unchanged. RUE 4/5, LUE 4/5 proximally, 4/5 distally. RLE 4/5, LLE HF 3/5, otherwise 4/5 distally Decreased proprioception but trunkal balance much improved Data: Reviewed programming medtronic pump sheet from 12/01/24 with hydromorphone and baclofen in her pump with 10.01 mg/day of hydromorphone and 100.1 mcg/day of baclofen. Assessment: Sandie Frank is a 69 y.o. female with history of HLD, hypothyroidism, obesity, asthma, chronic neck and back pain s/p multiple surgeries (L3-5 TLIF on 03/18/24) complicated by LUE weakness, facial droop, spasticity and cervical cord changes of unclear etiology with functional decline CPS with dilaudid IT pump presenting for follow up Plan: Discussed continuing to take baclofen 10 mg 4x per day at this time to help with her spasticity . Iwould suggest doubling the concentration of her baclofen intrathecally to help her spasticity and THEN to reduce her oral baclofen to 5 mg qid and hopefully wean further from there with additional changes to her pump concentration of baclofen. We discussed that I am happy to manage the baclofen component of her pump if easier for Dr. Kidd with orders to [facility] for home infusion. Discussed goal to also wean her dantrolene over time in addition to the oral baclofen Refilled Dantrium 100 mg 4 times daily for spasticity as well as BuSpar 5 mg 3 times daily for her anxiety Discussed need to work on her sit to stand transfers to enhance her outpatient therapy 4 months No follow-ups on file. Electronically Signed by: Suzan Sanchez DO - 12/07/2024 - 12:58 PM documented in this encounter Plan of Treatment Upcoming Encounters Date Type Department Care Team (Late st Contact Info) Description 02/21/2025 11:00 AM EDT Office Visit [facility] [address] [place] [phone] Dorys Sommers DO [address] [facility] [address] [place] [phone] 03/08/2025 1:40 PM EDT Office Visit [facility] [address] [place] [phone] Edgardo Zuñiga MD [address] [place] [phone] 03/09/2025 1:20 PM EDT Office Visit [facility] [address] [place] [phone] Suzan Galindo, DO [address] [place] [address] documented as of this encounter Visit Diagnoses Diagnosis Cervical cord compression with myelopathy (CMS/HCC) Unspecified disease of spinal cord Total self-care deficit Impaired cognition Unspecified persistent mental disorders due to conditions classified elsewhere documented in this encounter Additional Health Concerns Assessment Noted Time PHQ-9 Depression Total Score: 0 07/05/20 24 10:01 AM EST A fall risk assessment has been complete d for the patient 12/07/2024 12:51 PM EDT A Body Mass Index follow-up plan has been documented for the patient 12/07/2024 1:23 PM EDT documented as of this encounter Care Teams Wrapper Sizer Relationship Specialty Start Date End Date Marc Rodriguez MD [address] [place] [address] PCP - General 12/14/20 Edgardo Zuñiga MD [address] [place] [phone] Surgeon Neurosurgery 03/04/21 Giulia Briggs PA [address] [place] [phone] Physician Supply Chain Specialist Neurosurgery 07/03/21 Edgardo Zuñiga MD [address] [place] [phone] Surgeon Neurosurgery 09/16/21 Esther Mathew PA [address] [place] [address] Physician Supply Chain Specialist Neurology 11/19/22 documented as of this encounter
--- OUTSIDE RECORDS SUMMARY | 2025-01-23 08:35 | XMS_ITS | Encounter Summary ---
Author Organization [facility] [employer] Address [address] [place] [id number] Care Team Providers Care College Instructor Name Role Phone Unavailable Primary Care Provider Unavailabl e Encounter Details Date Type Department Care Team (Late st Contact Info) Description 07/25/2019 Transcribed Document [facility] Family Medicine [facility] [place] [address] ProviderSonia MD [address], [place] [id number] Social History Tobacco Use Types Packs/Day Years Used Date Smoking Tobacco: Never Assessed Comments Unknown Sex and Gender Information Value Date Recorded Sex Assigned at Not on file Legal Sex Female 1:42 PM CDT Gender Identity Not on file Sexual Orientation Not on file documented as of this encounter Miscellaneous Notes * Cerner Conversion Note - Historical ProviderMD - 07/25/2019 5:00 PM ACQUISITION CONSULTANT Chart Check - Review Order Profile Entered On: 07/25/2019 16:29 EST Performed On: 07/25/2019 17:00 EST by Aimee Willis, RN Chart Check Powerplans Initiated/Discontinued as Appropriate : Yes All Active Orders Reviewed : Yes Aimee Willis, RN - 07/25/2019 16:29 EST Electronically signed by Raman [facility] Conversion Manager Agricultural Cerner at 11/19/2022 8:46 PM CDT documented in this encounter Plan of Treatment Not on file documented as of this encounter Visit Diagnoses Not on filedocumented in this encounter
--- OUTSIDE RECORDS SUMMARY | 2025-01-23 08:35 | XMS_ITS | Encounter Summary ---
Author Organization [employer] Address [address] [place] [address] Care Team Providers Care Hand Chain Maker Name Role Phone Unavailable Primary Care Provider Unavailabl e Encounter Details Date Type Department Care Team (Late st Contact Info) Description 07/25/2019 Transcribed Document [facility] [address] [place] [address] Travis Robles MD [address] [place], [place] [id number] Social History Tobacco Use Types Packs/Day Years Used Date Smoking Tobacco: Never Assessed Comments Unknown Sex and Gender Information Value Date Recorded Sex Assigned at Not on file Legal Sex Female 1:42 PM CDT Gender Identity Not on file Sexual Orientation Not on file documented as of this encounter Miscellaneous Notes * Cerner Conversion Note - Travis Robles MD - 07/25/2019 9:05 AM EST Patient: SANDIE FRANK Age: 63 years Sex: Female : 1955 Associated Diagnoses: None Author: TRAVIS ROBLES MD-INT Subjective Chief complaint. Tuesday, July 23, 2019. No fevers or chills. No shortness of breath coughing wheezing. She has a right hip pain postoperatively and she's working with physical therapy with the , nurse, case packer all the bedside. She look like she is about to fallout ofthe bed. The patient's was asking about taking her home. He wanted to know if Dr. Patrick Knutson M.D. with orthopedic surgery actually goes to see patients at the [facility] That he does not go to the [facility] although 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 Physical therapy strongly agreed that he needs to go to inpatient rehabilitation either [facility] are at the [facility]. No fevers or chills. No nausea vomiting. No diarrhea constipation. Respiratory concern is she goes home with just her old her that she is a very high risk of falling and that could be life ending episode for her given her hip surgery. July 24, 2019. Patient's doing a little bit better she looks brighter to me today compared to yesterday she states she worked with physical therapy earlier today so sat on the side of the bed was little bit more stable but not super stable. This morning she denies any fevers or chills. No chest pain palpitations. No nausea vomiting. She denies any significant bleeding. I did tell her hemoglobin dropped a little bit we'll recheck lab in the morning. She is still agreeable to going to half-way facility. Patient's nurse and the patient's case packer who saw her upstairs saw her again today was at the bedside and they all agree this seems like a super reasonable approach. Thursday, July 25, 2019. She states she worked with physical therapy pain 0 little bit better at a 7 / 10. She had sustained with 3 people per her . He did a little bit she did a little bit better per him. No fevers or chills. No nausea vomiting. No diarrhea comes patient. No dysuria hematuria. Review of Systems Constitutional: Weakness, Decreased activity, No fever, No chills. Respiratory: No shortness of breath, No cough. Cardiovascular: No chest pain, No palpitations. Gastrointestinal: No nausea, No vomiting, No diarrhea, No constipation. Genitourinary: No dysuria. Neurologic: Alert and oriented X4, No confusion. Psychiatric: No anxiety, No depression. Health Status Allergies: Allergic Reactions (Selected) Severity Not Documented Cephalexin- Blisters and blisters. Clindamycin- Mouth blisters, blisters~mouth blisters and blisters. Codeine- No reactions were documented. Erythromycin- Blisters and blisters. Lyrica- Confusion. Meropenem- No reactions were documented., Allergies (3) Active Reaction codeine None Documented Lyrica Confusion meropenem None Documented Problem list: Medical Adrenal insufficiency / SNOMED CT 3581589782 / Confirmed Aortic valve stenosis / SNOMED CT 708994275 / Confirmed Arthritis / SNOMED CT 8221839 / Confirmed Asthma / SNOMED CT 750570586 / Confirmed At risk for sleep apnea / IMO 02953281 / Confirmed Cataracts, both eyes / SNOMED CT 387968396 / Confirmed chronic back pain / SNOMED CT 040887412 / Confirmed chronic diarrhea / SNOMED CT 480037133 / Confirmed Chronic kidney disease / SNOMED CT 1137162460 / Confirmed B12 deficiency / SNOMED CT 689259169 / Confirmed Dementia / SNOMED CT 12363998 / Confirmed depression / SNOMED CT 71789671 / Confirmed uses Renexa / SNOMED CT 7334464 / Confirmed chronic hydrocort use / SNOMED CT 9051490 / Confirmed peripheral neuropathy / SNOMED CT 15164844 / Confirmed GERD / SNOMED CT 572269124 / Confirmed fibromyalgia / SNOMED CT 19713744 / Confirmed Glaucoma / SNOMED CT 67152225 / Confirmed migraine headaches / SNOMED CT 158970659 / Confirmed hx cataract surgery bilateral / SNOMED CT 0087841701 / Confirmed hx. chest pain / SNOMED CT 0189792739 / Confirmed hx colon resection secondary decreased function / SNOMED CT 9359265999 / Confirmed hx. frequent UTIs / SNOMED CT 9440661951 / Confirmed high cholesterol / SNOMED CT 05440339 / Confirmed high blood pressure / SNOMED CT 8557350744 / Confirmed Hypothyroidism / SNOMED CT 33970108 / Confirmed kidney stone right kidney current and hx / SNOMED CT 485152471 / Confirmed Osteoporosis / SNOMED CT 822500499 / Confirmed Pneumonia / SNOMED CT 757070959 / Confirmed restless leg syndrome / SNOMED CT 69552384 / Confirmed rheumatoid arthritis / SNOMED CT 104152638 / Confirmed Seasonal allergies / SNOMED CT 4880344226 / Confirmed Vitamin D deficiency / SNOMED CT 78972352 / Confirmed Resolved: Hypotension / SNOMED CT 89605963 Canceled: adrenal insufficiency / SNOMED CT 9809726777 Canceled: Hyperthyroidism / SNOMED CT [id number], Active Problems (33) Adrenal insufficiency Aortic valve stenosis Arthritis Asthma At risk for sleep apnea B12 deficiency Cataracts, both eyes chronic back pain chronic diarrhea chronic hydrocort use Chronic kidney disease Dementia depression fibromyalgia GERD Glaucoma high blood pressure high cholesterol hx cataract surgery bilateral hx colon resection secondary decreased function hx. chest pain hx. frequent UTIs Hypothyroidism kidney stone right kidney current and hx migraine headaches Osteoporosis peripheral neuropathy Pneumonia restless leg syndrome rheumatoid arthritis Seasonal allergies uses Renexa Vitamin D deficiency Current medications: (Selected) Inpatient Medications Ordered Benadryl: 25 mg, Oral, Q4H, PRN: Itching Colace: 100 mg, Oral, BID Crestor: 20 mg, Oral, At Bedtime Cyklokapron 1,000 mg + syringe 1 Each + Sodium Chloride 0.9% intravenous solution 20 mL: 1,000 mg, 10 mL, 30 mL/Hr, Topical, 1-Time Cymbalta: 30 mg, Oral, QPM Cymbalta: 60 mg, Oral, QAM Dulcolax Laxative: 10 mg, Rectal, 1-Time, PRN: Constipation Florastor: 250 mg, Oral, Daily Lopressor: 12.5 mg, Oral, BID Melatonin: 9 mg, Oral, At Bedtime Protonix: 40 mg, Oral, Daily Proventil 2.5 mg/3 mL (0.083%) inhalation solution: 3 mL, Nebulized Inhalation, RT_Q6H QUEtiapine: 300 mg, Oral, At Bedtime Restasis 0.05% ophthalmic emulsion: 1 Drop, Eyes Both, Q12H Senokot S: 2 Tab, Oral, At Bedtime Sodium Chloride 0.9% intravenous solution 1,000 mL: 50 mL/Hr, IntraVENous Toradol: 15 mg, IV Push, Q6H, PRN: Pain (Moderate 4-6) Tylenol: 1,000 mg, Oral, Q8H Zofran: 4 mg, IV Push, Q8H, PRN: Nausea/Vomiting albuterol 2.5 mg/3 mL (0.083%) inhalation solution: 2.5 mg, Inhalation, Q4H, PRN: Wheezing aspirin: 81 mg, Oral, BID azelastine 137 mcg/inh (0.1%) nasal spray: 2 [place], Nasal, BID, PRN: Allergies budesonide: 0.5 mg, Nebulized Inhalation, BID cloNIDine 80 mcg + ketorolac 30 mg + ropivacaine 0.5% injectable solution 25 mL + Xylocaine HCl wit...: 80 mcg, 0.8 mL, 3000 mL/Hr, IntraLesional, 1-Time diphenhydrAMINE: 12.5 mg, Oral, At Bedtime, PRN: Insomnia donepezil: 20 mg, Oral, Daily gabapentin: 100 mg, Oral, QPM hydrocortisone: 5 mg, Oral, BID lamoTRIgine: 100 mg, Oral, BID levothyroxine: 100 mcg, Oral, Daily memantine: 10 mg, Oral, BID montelukast: 10 mg, Oral, Daily multivitamin: 1 Tab, Oral, Daily naloxone: 0.1 mg, IV Push, Q5Min, PRN: Oversedation oxyCODONE: 10 mg, Oral, Q4H, PRN: Pain (Mild 1-3) oxyCODONE: 15 mg, Oral, Q4H, PRN: Pain (Moderate 4-6) senna: 8.6 mg, Oral, At Bedtime, PRN: Constipation zolpidem: 5 mg, Oral, At Bedtime, PRN: Insomnia Documented Medications Documented Alrex 0.2% ophthalmic suspension: 1 Drop, Eyes Both, BID, 0 Refill(s) Crestor 20 mg oral tablet: 1 Tab, Oral, At Bedtime, 0 Refill(s) Cymbalta 30 mg oral delayed release capsule: 1 Cap, Oral, QPM, 0 Refill(s) Cymbalta 60 mg oral delayed release capsule: 1 Cap, Oral, QAM, 0 Refill(s) Decara 50,000 intl units oral capsule: 1 Cap, Oral, [id number], 0 Refill(s) Dilaudid: pain pump, 0 Refill(s) Flax Seed Oil: 1,200 mg, Oral, BID, 0 Refill(s) Flonase: 1 [place], Nostrils Both, BID Lunesta: 3 mg, Oral, At Bedtime, 0 Refill(s) Lutein 20 mg oral capsule: 1 Cap, Oral, QPM, 30 Cap, 0 Refill(s) Metoprolol Tartrate 25 mg oral tablet: 0.5 Tab, Oral, BID Multi Vitamin+: 1 Tab, Oral, Daily, 0 Refill(s) Perforomist 20 mcg/2 mL inhalation solution: 2 mL, Inhalation, BID, using a continuous flow nebulizer, 60 Each, 0 Refill(s) Probiotic Formula oral capsule: 1 Cap, Oral, Daily, 0 Refill(s) QUEtiapine 300 mg oral tablet: 1 Tab, Oral, At Bedtime Restasis 0.05% ophthalmic emulsion: 1 Drop, Eyes Both, Q12H, 0 Refill(s) Ventolin HFA 90 mcg/inh inhalation aerosol: 2 Puff, Inhalation, QID, 0 Refill(s) Vitamin C 500 mg oral tablet: 1 Tab, Oral, Daily, 0 Refill(s) Vitamin D3: 2,000 Int Units, Oral, Daily, 0 Refill(s) albuterol 2.5 mg/3 mL (0.083%) inhalation solution: 3 mL, Inhalation, Q4H, PRN: as needed for wheezing, 25 Each, 0 Refill(s) alendronate: 70 mg, Oral, Weekly, 0 Refill(s) azelastine 205.5 mcg/inh (0.15%) nasal spray: 2 [place], Nasal, BID, PRN: for allergy symptoms, 0 Refill(s) biotin: 5 mg, Oral, At Bedtime, 0 Refill(s) budesonide: 1 mg, Nebulized Inhalation, Daily bupivacaine: pain pump, 0 Refill(s) cyanocobalamin 1000 mcg/mL injectable solution: 1,000 mcg, IntraMuscular, Weekly, 0 Refill(s) donepezil: 23 mg, Oral, Daily, 0 Refill(s) famotidine: 40 mg, Oral, BID, 0 Refill(s) gabapentin 100 mg oral capsule: 1 Cap, Oral, QPM, 0 Refill(s) hydrocortisone 10 mg oral tablet: 0.5 Tab, Oral, BID, 0 Refill(s) lamoTRIgine 100 mg oral tablet: 1 Tab, Oral, BID, 0 Refill(s) levothyroxine 100 mcg (0.1 mg) oral tablet: 1 Tab, Oral, Daily, 0 Refill(s) melatonin 10 mg oral capsule: 1 Cap, Oral, At Bedtime, 0 Refill(s) memantine 5 mg oral tablet: 2 Tab, Oral, BID, 0 Refill(s) montelukast 10 mg oral tablet: 1 Tab, Oral, Daily, 0 Refill(s) sodium bicarbonate 650 mg oral tablet: 1 Tab, Oral, BID, 60 Tab, 0 Refill(s), Home Medications (36) Active albuterol 2.5 mg/3 mL (0.083%) inhalation solution 2.5 mg = 3 mL, PRN, Inhalation, Q4H alendronate 70 mg, Oral, Weekly Alrex 0.2% ophthalmic suspension 1 Drop, Eyes Both, BID azelastine 205.5 mcg/inh (0.15%) nasal spray 2 [place], PRN, Nasal, BID biotin 5 mg, Oral, At Bedtime budesonide 1 mg, Nebulized Inhalation, Daily bupivacaine Crestor 20 mg oral tablet 20 mg = 1 Tab, Oral, At Bedtime cyanocobalamin 1000 mcg/mL injectable solution 1,000 mcg, IntraMuscular, Weekly Cymbalta 30 mg oral delayed release capsule 30 mg = 1 Cap, Oral, QPM Cymbalta 60 mg oral delayed release capsule 60 mg = 1 Cap, Oral, QAM Decara 50,000 intl units oral capsule 50,000 Int Units = 1 Cap, Oral, [id number] Dilaudid donepezil 23 mg, Oral, Daily famotidine 40 mg, Oral, BID Flax Seed Oil 1,200 mg, Oral, BID Flonase 1 [place], Nostrils Both, BID gabapentin 100 mg oral capsule 100 mg = 1 Cap, Oral, QPM hydrocortisone 10 mg oral tablet 5 mg = 0.5 Tab, Oral, BID lamoTRIgine 100 mg oral tablet 100 mg = 1 Tab, Oral, BID levothyroxine 100 mcg (0.1 mg) oral tablet 100 mcg = 1 Tab, Oral, Daily Lunesta 3 mg, Oral, At Bedtime Lutein 20 mg oral capsule 20 mg = 1 Cap, Oral, QPM melatonin 10 mg oral capsule 10 mg = 1 Cap, Oral, At Bedtime memantine 5 mg oral tablet 10 mg = 2 Tab, Oral, BID Metoprolol Tartrate 25 mg oral tablet 12.5 mg = 0.5 Tab, Oral, BID montelukast 10 mg oral tablet 10 mg = 1 Tab, Oral, Daily Multi Vitamin+ 1 Tab, Oral, Daily Perforomist 20 mcg/2 mL inhalation solution 20 mcg = 2 mL, Inhalation, BID Probiotic Formula oral capsule 1 Cap, Oral, Daily QUEtiapine 300 mg oral tablet 300 mg = 1 Tab, Oral, At Bedtime Restasis 0.05% ophthalmic emulsion 1 Drop, Eyes Both, Q12H sodium bicarbonate 650 mg oral tablet 650 mg = 1 Tab, Oral, BID Ventolin HFA 90 mcg/inh inhalation aerosol 2 Puff, Inhalation, QID Vitamin C 500 mg oral tablet 500 mg = 1 Tab, Oral, Daily Vitamin D3 2,000 Int Units, Oral, Daily , Medications (38) Active Scheduled: (25) acetaminophen 500 mg tab 1,000 mg 2 Tab, Oral, Q8H albuterol 0.083% inh soln 3 mL 3 mL, Nebulized Inhalation, RT_Q6H aspirin EC 81 mg tab 81 mg 1 Tab, Oral, BID budesonide 0.5 mg/2 mL inh susp 0.5 mg 2 mL, Nebulized Inhalation, BID cloNIDine 80 mcg + ketorolac 30 mg + ropivacaine 0.5% 25 mL + lidocaine 1% w/epi 1:100,000 23.2 mL 80 mcg 0.8 mL, IntraLesional, 1-Time cycloSPORINE 0.05% ophth emulsion 1 Drop, Eyes Both, Q12H docusate sodium 100 mg cap 100 mg 1 Cap, Oral, BID donepezil 5 mg tab 20 mg 4 Tab, Oral, Daily DULoxetine DR 30 mg cap 30 mg 1 Cap, Oral, QPM DULoxetine DR 60 mg cap 60 mg 1 Cap, Oral, QAM gabapentin 100 mg cap 100 mg 1 Cap, Oral, QPM hydrocortisone 10 mg tab 5 mg 0.5 Tab, Oral, BID lamoTRIgine 100 mg tab 100 mg 1 Tab, Oral, BID levothyroxine 100 mcg tab 100 mcg 1 Tab, Oral, Daily melatonin 3 mg tab 9 mg 3 Tab, Oral, At Bedtime memantine 5 mg tab 10 mg 2 Tab, Oral, BID metoprolol tartrate 25 mg tab 12.5 mg 0.5 Tab, Oral, BID montelukast 10 mg tab 10 mg 1 Tab, Oral, Daily multiple vitamin (Thera) tab 1 Tab, Oral, Daily pantoprazole EC 40 mg tab 40 mg 1 Tab, Oral, Daily QUEtiapine 100 mg tab 300 mg 3 Tab, Oral, At Bedtime rosuvastatin 10 mg tab 20 mg 2 Tab, Oral, At Bedtime saccharomyces boulardii 250 mg cap 250 mg 1 Cap, Oral, Daily senna/docusate 8.6/50 mg tab 2 Tab, Oral, At Bedtime tranexamic acid 1,000 mg + syringe 1 Each + NaCl 0.9% 20 mL 1,000 mg 10 mL, Topical, 1-Time Continuous: (1) NaCl 0.9% 1,000 mL 1,000 mL, IntraVENous, 50 mL/Hr PRN: (12) albuterol 0.083% inh soln 3 mL 2.5 mg, Inhalation, Q4H azelastine 137 mcg/spray nasal 30 mL 2 [place], Nasal, BID bisacodyl 10 mg supp 10 mg 1 Supp, Rectal, 1-Time diphenhydrAMINE 25 mg tab 25 mg 1 Tab, Oral, Q4H diphenhydrAMINE 25 mg tab 12.5 mg 0.5 Tab, Oral, At Bedtime ketorolac 30 mg/1 mL inj 15 mg 0.5 mL, IV Push, Q6H naloxone 0.4 mg/1 mL inj 0.1 mg 0.25 mL, IV Push, Q5Min ondansetron 4 mg/2 mL inj 4 mg 2 mL, IV Push, Q8H oxyCODONE 15 mg tab 15 mg 1 Tab, Oral, Q4H oxyCODONE 5 mg tab 10 mg 2 Tab, Oral, Q4H senna 8.6 mg tab 8.6 mg 1 Tab, Oral, At Bedtime zolpidem 5 mg tab 5 mg 1 Tab, Oral, At Bedtime Objective VS/Measurements Vitals Signs (last 24 hrs) Last Charted Minimum Maximum Temp 98.1 (JUL 25:) 97.3 (JUL 25 05:52) 98.3 (JUL 24 17:00) Apical HR 62 (JUL 25 08:43) 62 (JUL 25 08:43) 82 (JUL 24 21:24) Mon HR 75 (JUL 25:) 61 (JUL 24 20:32) 82 (JUL 24:21) Resp Rate 18 (JUL 25:) 16 (JUL 24 17:09) 18 (JUL 25:) SBP 131 (JUL 25:) 112 (JUL 24 17:00) H 155 (JUL 24:) DBP 67 (JUL 25:25) L 51 (DEC 22 17:00) 67 (JUL 25 01:54) MAP 84 (JUL 25:25) 63 (JUL 24 17:00) 86 (JUL 24:21) SpO2 95 (JUL 25 09:) 94 (JUL 24 17:09) 100 (JUL 24:) Physical Examination VS/Measurements Vitals Signs (last 24 hrs) Last Charted Minimum Maximum Temp 98.1 (JUL 25:25) 97.3 (JUL 25 05:52) 98.3 (JUL 24 17:00) Apical HR 62 (JUL 25 08:43) 62 (JUL 25 08:43) 82 (JUL 24 21:24) Mon HR 75 (JUL 25:) 61 (JUL 24 20:32) 82 (JUL 24:) Resp Rate 18 (JUL 25:25) 16 (JUL 24 17:09) 18 (JUL 25:25) SBP 131 (JUL 25:25) 112 (JUL 24 17:00) H 155 (JUL 24:) DBP 67 (JUL 25 09:) L 51 (JUL 24 17:00) 67 (JUL 25 01:54) MAP 84 (JUL 25 09:25) 63 (JUL 24 17:00) 86 (JUL 24:) SpO2 95 (JUL 25 09:25) 94 (JUL 24 17:09) 100 (JUL 24:) General: Alert and oriented, Mild distress, Obese, debilitated. Eye: Pupils are equal, round and reactive to light, Extraocular movements are intact. HENT: Normocephalic, Normal hearing. Neck: Supple, No jugular venous distention. Respiratory: Lungs are clear to auscultation, Breath sounds are equal. Cardiovascular: Normal rate, Regular rhythm. Gastrointestinal: Soft, Non-tender, Normal bowel sounds. Genitourinary: No costovertebral angle tenderness. Lymphatics: No lymphadenopathy neck, axilla, groin. Musculoskeletal: Normal range of motion, Normal strength, Right total hip replacement. Integumentary: Dry, Intact, Right hip incision dressed. Neurologic: Alert, Oriented, Normal sensory. Psychiatric: Cooperative, Appropriate mood & affect. Review / Management Results review: Labs (Last four charted values) WBC 5.1 (JUL 25) 5.4 (JUL 24) HB L 8.6 (JUL 25) L 8.4 (JUL 24) L 9.5 (JUL 23) HCT L 27.3 (JUL 25) L 27.2 (JUL 24) L 30.5 (JUL 23) Plt L 127 (JUL 25) L 117 (JUL 24) Na H 148 (JUL 25) 146 (JUL 24) 145 (JUL 23) K 4.5 (JUL 25) 4.2 (JUL 24) 4.8 (JUL 23) Cl H 115 (JUL 25) H 115 (JUL 24) H 113 (JUL 23) CO2 28 (JUL 25) 29 (JUL 24) 30 (JUL 23) BUN 10 (JUL 25) 13 (JUL 24) 13 (JUL 23) Cr 0.92 (JUL 25) 1.00 (JUL 24) 0.99 (JUL 23) Glu R 93 (JUL 25) 104 (JUL 24) H 134 (JUL 23) Ca 8.9 (JUL 25) 8.7 (JUL 24) 8.5 (JUL 23) AST 26 (JUL 25) 23 (JUL 24) ALT 18 (JUL 25) 19 (JUL 24) ALK P 86 (JUL 25) 81 (JUL 24) T Bili 0.4 (JUL 25) 0.3 (JUL 24) PTN L 5.1 (JUL 25) L 5.0 (JUL 24) ALB L 2.6 (JUL 25) L 2.7 (JUL 24) . Impression and Plan S/p Right Total Hip Arthroplasty by Dr. Newton -Pain control prn -Encourage incentive spirometry -PT/OT to evaluate and treat -DVT ppx per Dr. Newton. Educated patient on signs and symptoms of DVT/PE and to seek care if they develop. They voiced understanding. Acute hypoxic respiratory failure -Plan to wean off O2, keep continuous O2 monitoring -Consider CXR if still on O2 in a few hours -Incentive Spirometer encouraged, lungs clear on exam Asthma - Nebs/Inhalers prn. Seizure Disorder - Continue Lamictal. Hypothyroidism - Continue Synthroid. Dementia - Continue Donepezil and Memantine. Hyperlipidemia - Continue Crestor. Chronic Pain -Patient has pain pump followed outpatient with Dr. Kidd -Pain may be hard to control due to patient's current regimen -Pain control per Dr. Newton Seasonal Allergies - Continue Singulair. GERD - Continue Famotidine. Depression - Continue Cymbalta and Seroquel. Hypertension - Continue Metoprolol with parameters Adrenal Insufficiency -Dr. Duval who recommended she receive Hydrocortisone 5mg IV/hr during surgery. -Patient received 100 IV Solu-Medrol intraoperatively -Per pre-op H&P Dr. Newton is aware and, He felt that there was no need for an increase in her oral Hydrocort after surgery as long as she got the IV medication during surgery. -Resume home hydrocortisone 5 mg BID starting tomorrow morning -BP is stable, continue to monitor Resting tremor -Followed by Neurologist at DVT ppx per Dr. Newton team: Aspirin 81 mg tabs, 1 BID for 45 days GI ppx: protonix Full code Tuesday, July 23, 2019. 35 minutes spent on follow-up this really nice lady who is obese and debilitated, her , nurse, case packer THE bedside. The really voiced some interest in going home but I saw her working with physical therapy in the bed and she almost fellout ofbed with the physical therapist there. I explained that with his advanced age her advanced age she's a larger lady she really need short-term rehabilitation otherwise she is a very significant fall risk and I explained to her as well as to him that this would be life-threatening catastrophe if she were to fall on her hip. They agreed to look into rehabilitation on Thursday extremities she would need 39 she's had one night so far however if by Thursday she is dramatically improved she may not need inpatient rehabilitation at this point she clearly does and will most likely need it. Hemoglobin 9.5, creatinine 0.9. Wednesday, July 24, 2019. 25 minutes spent on follow-up this up pleasant lady she seems much brighter today compared to yesterday. Her white count is 5, hemoglobin is 8.4 down from 9.5 yesterday. Some of this may be dilutional but I like to recheck a CBC in the morning make sure it is not dropped so low that she would require a transfusion. Creatinine stable at 1.0 up from 0.99 yesterday, BUN is the same at 13. Ordered physical therapy, occupational therapy she worked with PT already this morning she states that she told her they would work with her later in the afternoon. The patient's nurse and her case packer who saw her yesterday at the bedside and we'll concur that she would benefit from short-term half-way facility placement given her right hip replacement. Explained to the patient that if she were to go home and fall could be life ending situation. Recheck a CBC and basic metabolic profile in the morning. Thursday, July 25, 2019. She is doing better today looks a little bit brighter 's at the bedside. Pain was 7 / 10 with physical therapy she's to 3 people still a bit unsteady but doing better per . Throat agreeable to look at rehabilitation. Patient's white blood cell count is 5, hemoglobin is 8.6, creatinine 0.9. Recheck a CBC and CMP in the morning I'm very pleased that hemoglobin stable going from 8.4 up to 8.6 and suggests is not any more bleeding or significant blood loss. [employer] dictation system used. Computer program makes numerous spelling grammar mistakes. If you have any questions or concerns do not hesitate call Dr. Travis Lux at cell phone number [phone]. documented in this encounter Plan of Treatment Not on file documented as of this encounter Visit Diagnoses Not on filedocumented in this encounter
--- OUTSIDE RECORDS SUMMARY | 2025-01-23 08:35 | XMS_ITS | Encounter Summary ---
Author Organization [employer] i[employer] Address [address] [place] [address] Care Team Providers Care Manager Business Information Name Role Phone Unavailable Primary Care Provider Unavailabl e Encounter Details Date Type Department Care Team (Late st Contact Info) Description 07/25/2019 Transcribed Document [facility] [address] [place] [address] Travis Schwartz MD [address] [place], [place] [id number] Social History Tobacco Use Types Packs/Day Years Used Date Smoking Tobacco: Never Assessed Comments Unknown Sex and Gender Information Value Date Recorded Sex Assigned at Not on file Legal Sex Female 1:42 PM CDT Gender Identity Not on file Sexual Orientation Not on file documented as of this encounter Miscellaneous Notes * Cerner Conversion Note - Travis Schwartz MD - 07/25/2019 3:07 PM EST PLEASE MODIFY BEFORE SIGNING CLINICAL DOCUMENTATION CLARIFICATION FORM: Dear Dr. Schwartz Date: 07/25/19 Please exercise your independent, professional judgment in responding to the clarification form. Clinical indicators are provided on the bottom of this form for your review Please check appropriate box(es): [ ] Acute respiratory failure due to an existing co-morbid condition of Asthma [ ] Acute respiratory failure related to the surgical procedure [ ] Respiratory insufficiency due to an existing co-morbid condition of Asthma [ ] Respiratory insufficiency due to the surgical procedure [ ] Other diagnosis [x ] Unable to determine For continuity of documentation, please document condition throughout progress notes and discharge summary. Thank You. To be completed by CDI/Coding staff for physician review: Present Clinical Indicators - Signs / Symptoms / Labs Results and Location in Medical Record x Decreased oxygen saturation / Hypoxemia 07/23/19- per Vitals- O2 sat.- 88% on RA x Documentation of Acute hypoxic respiratory failure 07/25/19- per PN- Acute hypoxic respiratory failure x Labored respirations (use of accessory muscles) 07/22/19- per Vitals- RR- 22 Present Risk Factors Results and Location in Medical Record x Recent surgery 07/22/19- per D/C Summary- Right ATHA x Advanced age 1207/22/19- per face Sheet- 63 yo x Chronic illness 07/25/19- per PN- Asthma Present Treatments Results and Location in Medical Record x Oxygen / Monitoring oxygenation status 07/22/19- per Vitals- O2 at 2 LPM x Breathing treatments 07/22/19- per MD Order- Albuterol nebs Q 6 hrs x IV Antibiotics 07/22/19- per MD Order- Vancomycin 1,500 Mg IV X 1 CDS/Help Desk Intern Signature: Krystyna Gonzalez RN Phone #: [phone] This is a permanent part of the Medical Record Q54 2019 [facility] Updated: 2019 documented in this encounter Plan of Treatment Not on file documented as of this encounter Visit Diagnoses Not on filedocumented in this encounter
--- OUTSIDE RECORDS SUMMARY | 2025-01-23 08:35 | XMS_ITS | Encounter Summary ---
Author Organization [employer] i[employer] Address [address] [place] [address] Care Team Providers Care Senior Product Development Manager Name Role Phone Unavailable Primary Care Provider Unavailabl e Encounter Details Date Type Department Care Team (Late st Contact Info) Description 07/25/2019 Transcribed Document [facility] [place] Pending [facility] to [facility] [place] [address] ProviderSonia MD [address] [place], [place] [address] Social History Tobacco Use Types Packs/Day Years Used Date Smoking Tobacco: Never Assessed Comments Unknown Sex and Gender Information Value Date Recorded Sex Assigned at Not on file Legal Sex Female 1:42 PM CDT Gender Identity Not on file Sexual Orientation Not on file documented as of this encounter Miscellaneous Notes * Cerner Conversion Note - Historical ProviderMD - 07/25/2019 4:49 PM ENGINEERING TEAM SUPERVISOR Spiritual Care Short Form Entered On: 07/25/2019 22:21 EST Performed On: 07/25/2019 16:49 EST by Eligio Medina Chaplain-Loida Rene General Information, Spiritual Care Spiritual Care Referred by : follow-up Reason for Visit : Follow Up Ministry Provided to : Patient, Family/Significant other Intervention/Comment/Summary Points : Provided prayer with patient and pt's upon their request. Eligio Medina Chaplain-Non Cert - 07/25/2019 22:20 EST documented in this encounter Plan of Treatment Not on file documented as of this encounter Visit Diagnoses Not on filedocumented in this encounter
--- OUTSIDE RECORDS SUMMARY | 2025-01-23 08:35 | XMS_ITS | Encounter Summary ---
Author Organization [employer] i[employer] Address [address] [place] [address] Care Team Providers Care Toolsmith Name Role Phone Unavailable Primary Care Provider Unavailabl e Encounter Details Date Type Department Care Team (Late st Contact Info) Description 07/25/2019 Transcribed Document [facility] [place] [facility] [place] [address] ProviderSonia MD [address], [place] [phone] Social History Tobacco Use Types Packs/Day Years Used Date Smoking Tobacco: Never Assessed Comments Unknown Sex and Gender Information Value Date Recorded Sex Assigned at Not on file Legal Sex Female 1:42 PM CDT Gender Identity Not on file Sexual Orientation Not on file documented as of this encounter Miscellaneous Notes * Cerner Conversion Note - Historical ProviderMD - 07/25/2019 2:00 AM DETAILER Wrapper Off Details Entered On: 07/25/2019 2:08 EST Performed On: 07/25/2019 2:00 EST by Barrington Roberts RN Order Details Transport Mode Order Detail : Bed (including specialty) Isolation Precautions Order Detail : Standard Precautions Order Detail : 0 IV Order Detail : 0 Oxygen Order Detail : 0 Nurse Collect Order Detail : 0 Lift/Transfer : Moderate assist Central Line Order Detail : No Room Service : Appropriate Arterial Line : No Barrington Roberts RN - 07/25/2019 2:07 EST documented in this encounter Plan of Treatment Not on file documented as of this encounter Visit Diagnoses Not on filedocumented in this encounter
--- OUTSIDE RECORDS SUMMARY | 2025-01-23 08:35 | XMS_ITS | Encounter Summary ---
Author Organization [employer] i[employer] Address [address] [place] [address] Care Team Providers Care Research Scientist Name Role Phone Unavailable Primary Care Provider Unavailabl e Encounter Details Date Type Department Care Team (Late st Contact Info) Description 07/27/2019 Transcribed Document [facility] [place] [facility] [place] [address] ProviderSonia MD [address] [place], [place] [phone] Social History Tobacco Use Types Packs/Day Years Used Date Smoking Tobacco: Never Assessed Comments Unknown Sex and Gender Information Value Date Recorded Sex Assigned at Not on file Legal Sex Female 1:42 PM CDT Gender Identity Not on file Sexual Orientation Not on file documented as of this encounter Miscellaneous Notes * Cerner Conversion Note - Historical ProviderMD - 07/27/2019 5:00 PM BIODIESEL OPERATIONS MANAGER Chart Check - Review Order Profile Entered On: 07/27/2019 20:01 EST Performed On: 07/27/2019 17:00 EST by Esther Cunningham RN Chart Check Powerplans Initiated/Discontinued as Appropriate : Yes All Active Orders Reviewed : Yes Esther Cunningham, NICOLASA - 07/27/2019 20:01 EST Electronically signed by [facility] Conversion Pastoral Worker Cerner at 11/19/2022 8:33 PM CDT documented in this encounter Plan of Treatment Not on file documented as of this encounter Visit Diagnoses Not on filedocumented in this encounter
--- OUTSIDE RECORDS SUMMARY | 2025-01-23 08:35 | XMS_ITS | Encounter Summary ---
Author Organization [employer] i[employer] Address [address] [place] [address] Care Team Providers Care Die Repairer Forging Name Role Phone Unavailable Primary Care Provider Unavailabl e Encounter Details Date Type Department Care Team (Late st Contact Info) Description 07/24/2019 Transcribed Document [facility] [place] [facility] [place] [address] ProviderSonia MD [address] [place], [place] [phone] Social History Tobacco Use Types Packs/Day Years Used Date Smoking Tobacco: Never Assessed Comments Unknown Sex and Gender Information Value Date Recorded Sex Assigned at Not on file Legal Sex Female 1:42 PM CDT Gender Identity Not on file Sexual Orientation Not on file documented as of this encounter Miscellaneous Notes * Cerner Conversion Note - Historical ProviderMD - 07/24/2019 2:00 AM FLOOR PERSON Registered Respiratory Technician Details Entered On: 07/24/2019 2:22 EST Performed On: 07/24/2019 2:00 EST by Mayra Gibson, RN Order Details Transport Mode Order Detail : Bed (including specialty) Isolation Precautions Order Detail : Standard Precautions Order Detail : 0 IV Order Detail : 1 Oxygen Order Detail : 0 Nurse Collect Order Detail : 0 Lift/Transfer : Moderate assist Central Line Order Detail : No Room Service : Not Appropriate Arterial Line : No Mayra Gibson, RN - 07/24/2019 2:21 EST documented in this encounter Plan of Treatment Not on file documented as of this encounter Visit Diagnoses Not on filedocumented in this encounter
--- OUTSIDE RECORDS SUMMARY | 2025-01-23 08:35 | XMS_ITS | Encounter Summary ---
Author Organization [employer] i[employer] Address [address] [place] [address] Care Team Providers Care Hand Fabric Cutter Name Role Phone Unavailable Primary Care Provider Unavailabl e Encounter Details Date Type Department Care Team (Late st Contact Info) Description 07/24/2019 Transcribed Document [facility] [place] [facility] [place] [address] ProviderSonia MD [address] [place] [phone] Social History Tobacco Use Types Packs/Day Years Used Date Smoking Tobacco: Never Assessed Comments Unknown Sex and Gender Information Value Date Recorded Sex Assigned at Not on file Legal Sex Female 1:42 PM CDT Gender Identity Not on file Sexual Orientation Not on file documented as of this encounter Miscellaneous Notes * Cerner Conversion Note - Historical ProviderMD - 07/24/2019 10:00 PM SUPPORTABILITY ENGINEER Pain Assessment Entered On: 07/25/2019 0:08 EST Performed On: 07/24/2019 22:26 EST by Barrington Roberts RN Intervention Information: acetaminophen Performed by Barrington Roberts RN on 07/24/2019 21:26:00 EST acetaminophen,1000mg Oral Pain Assessment Pain Assessment : Follow-up assessment Pain Scale Goal : 5 Pain Scale Used : 0-10 Scale Pain Intervention, Drug : Medicated Pain Improved by Intervention : Yes Barrington Roberts RN - 07/25/2019 0:08 EST Pain Scale Intensity : 3 Barrington Roberts RN - 07/25/2019 0:08 EST Image 4 - Images currently included in the form version of this document have not been included in the text rendition version of the form. documented in this encounter Plan of Treatment Not on file documented as of this encounter Visit Diagnoses Not on filedocumented in this encounter
--- OUTSIDE RECORDS SUMMARY | 2025-01-23 08:35 | XMS_ITS | Encounter Summary ---
Author Organization [employer] i[employer] Address [address] [place] [address] Care Team Providers Care Color Technician Name Role Phone Unavailable Primary Care Provider Unavailabl e Encounter Details Date Type Department Care Team (Late st Contact Info) Description 07/27/2019 Transcribed Document [facility] [place] [facility] [place] [address] ProviderSonia MD [address] [place] [phone] Social History Tobacco Use Types Packs/Day Years Used Date Smoking Tobacco: Never Assessed Comments Unknown Sex and Gender Information Value Date Recorded Sex Assigned at Not on file Legal Sex Female 1:42 PM CDT Gender Identity Not on file Sexual Orientation Not on file documented as of this encounter Miscellaneous Notes * Cerner Conversion Note - Historical ProviderMD - 07/27/2019 2:00 PM BUFFET RUNNER Pain Assessment Entered On: 07/27/2019 16:45 EST Performed On: 07/27/2019 16:27 EST by Esther Cunningham RN Intervention Information: acetaminophen Performed by Esther Cunningham RN on 07/27/2019 15:27:00 EST acetaminophen,1000mg Oral Pain Assessment Pain Assessment : Follow-up assessment Pain Scale Goal : 5 Pain Scale Used : 0-10 Scale Esther Cunningham RN - 07/27/2019 16:45 EST Pain Scale Intensity : 1 Esther Cunningham RN - 07/27/2019 16:45 EST Image 4 - Images currently included in the form version of this document have not been included in the text rendition version of the form. documented in this encounter Plan of Treatment Not on file documented as of this encounter Visit Diagnoses Not on filedocumented in this encounter
--- OUTSIDE RECORDS SUMMARY | 2025-01-23 08:35 | XMS_ITS | Encounter Summary ---
Author Organization [employer] Address [address] [place] [address] Care Team Providers Care Is Architect Name Role Phone Unavailable Primary Care Provider Unavailabl e Encounter Details Date Type Department Care Team (Late st Contact Info) Description 07/27/2019 Transcribed Document [facility] [place] [facility] [place] [address] ProviderSonia MD [address] [place], [place] [phone] Social History Tobacco Use Types Packs/Day Years Used Date Smoking Tobacco: Never Assessed Comments Unknown Sex and Gender Information Value Date Recorded Sex Assigned at Not on file Legal Sex Female 1:42 PM CDT Gender Identity Not on file Sexual Orientation Not on file documented as of this encounter Miscellaneous Notes * Cerner Conversion Note - Historical ProviderMD - 07/27/2019 2:00 AM RESISTANCE WELDER Cad Application Support Specialist Details Entered On: 07/27/2019 2:11 EST Performed On: 07/27/2019 2:00 EST by Barrington Roberts RN Order Details Transport Mode Order Detail : Bed (including specialty) Isolation Precautions Order Detail : Standard Precautions Order Detail : 0 IV Order Detail : 0 Oxygen Order Detail : 0 Nurse Collect Order Detail : 0 Lift/Transfer : Maximal assist Central Line Order Detail : No Room Service : Appropriate Arterial Line : No Barrington Roberts RN - 07/27/2019 2:11 EST documented in this encounter Plan of Treatment Not on file documented as of this encounter Visit Diagnoses Not on filedocumented in this encounter
--- OUTSIDE RECORDS SUMMARY | 2025-01-23 08:35 | XMS_ITS | Encounter Summary ---
Author Organization [employer] Address [address] [place] [address] Care Team Providers Care Life Trainer Name Role Phone Unavailable Primary Care Provider Unavailabl e Encounter Details Date Type Department Care Team (Late st Contact Info) Description 07/25/2019 Transcribed Document [facility] [place] [facility] [place] [address] ProviderSonia MD [address] [place] [phone] Social History Tobacco Use Types Packs/Day Years Used Date Smoking Tobacco: Never Assessed Comments Unknown Sex and Gender Information Value Date Recorded Sex Assigned at Not on file Legal Sex Female 1:42 PM CDT Gender Identity Not on file Sexual Orientation Not on file documented as of this encounter Miscellaneous Notes * Cerner Conversion Note - Historical ProviderMD - 07/25/2019 6:00 AM HEAT TREATER HEAD Pain Assessment Entered On: 07/25/2019 6:35 EST Performed On: 07/25/2019 6:46 EST by Barrington Roberts RN Intervention Information: acetaminophen Performed by Barrington Roberts RN on 07/25/2019 05:46:00 EST acetaminophen,1000mg Oral Pain Assessment Pain Assessment : Follow-up assessment Pain Scale Goal : 5 Pain Scale Used : 0-10 Scale Pain Intervention, Drug : Medicated Pain Improved by Intervention : Yes Barrington Roberts RN - 07/25/2019 6:34 EST Pain Scale Intensity : 2 Barrington Roberts RN - 07/25/2019 6:34 EST Image 4 - Images currently included in the form version of this document have not been included in the text rendition version of the form. documented in this encounter Plan of Treatment Not on file documented as of this encounter Visit Diagnoses Not on filedocumented in this encounter
--- OUTSIDE RECORDS SUMMARY | 2025-01-23 08:35 | XMS_ITS | Encounter Summary ---
Author Organization [employer] Address [address] [place] [address] Care Team Providers Care Remelt Sugar Boiler Name Role Phone Unavailable Primary Care Provider Unavailabl e Encounter Details Date Type Department Care Team (Late st Contact Info) Description 07/24/2019 Transcribed Document [facility] [place] Medicine [facility] [place] [address] ProviderSonia MD [address] [place] [id number] Social History Tobacco Use Types Packs/Day Years Used Date Smoking Tobacco: Never Assessed Comments Unknown Sex and Gender Information Value Date Recorded Sex Assigned at Not on file Legal Sex Female 1:42 PM CDT Gender Identity Not on file Sexual Orientation Not on file documented as of this encounter Miscellaneous Notes * Cerner Conversion Note - Historical ProviderMD - 07/24/2019 8:49 AM NUCLEAR MONITORING TECHNICIAN Patient: SANDIE FRANK Age: 63 Years Sex: Female : 1955 Assessment/Plan POD#2-- R ATHA-- Patient and nurse had concerns for drainage from dressing yesterday. I took the dressing down, no signs of active drainage or moisture. Incision perfectly coapted. I applied bulky compressive dressing to the area to help absorb any additional drainage that may occur with any additional movement today. Will take down dressing tomorrow to check for drainage over the last 24 hours, then likely reapply less bulky dressing. VTE Prophylaxis - Medical Sequential Compression Device Start: 07/22/19 11:20:00 EST, Bilateral, Length: Knee High, Continuous Order (PEE VILLAR) Subjective Patient's pain well controlled. Reports balance is making PT difficult. She had same issue after shoulder surgery recently. Vital Signs T: 36.5 ??C TMIN: 36.3 ??C TMAX: 36.9 ??C HR: 65(Monitored) RR: 14 BP: 102/42 SpO2: 91% Oxygen Settings (Last) Oxygen Therapy Mode: Room air (07/24/19 04:39:00) Oxygen Flow Rate: 2 Liter/Min (07/23/19 03:56:00) Intake & Output Totals Last 24 Hours (7a-7a) Input Total: 0.5 mL Output Total: 1451 mL Balance: -1450.5 mL Physical Exam Wound c/d/i, no active drainage or signs of moisture. Mild hip swelling noted SILT throughout the extremity including 1st and 4th webspace TA,GAS,QUAD firing Palpable Pulses for DP/PT Compartments of the leg soft/compressible Medications albuterol 2.5 mg/3 mL (0.083%) inhalation solution, 2.5 mg, Inhalation, Q4H, PRN aspirin, 81 mg= 1 Tab, Oral, BID azelastine 137 mcg/inh (0.1%) nasal spray, 2 [place], Nasal, BID, PRN Benadryl, 25 mg= 1 Tab, Oral, Q4H, PRN budesonide, 0.5 mg= 2 mL, Nebulized Inhalation , BID cloNIDine 80 mcg + ketorolac 30 mg + ropivacaine 0.5% injectable solution 25 mL + Xylocaine HCl wit Colace, 100 mg= 1 Cap, Oral, BID Crestor, 20 mg= 2 Tab, Oral, At Bedtime Cyklokapron 1,000 mg + syringe 1 Each + Sodium Chloride 0.9% intravenous solution 20 mL Cymbalta, 30 mg= 1 Cap, Oral, QPM Cymbalta, 60 mg= 1 Cap, Oral, QAM diphenhydrAMINE, 12.5 mg= 0.5 Tab, Oral, At Bedtime, PRN donepezil, 20 mg= 4 Tab, Oral, Daily Dulcolax Laxative, 10 mg= 1 Supp, Rectal, 1-Time, PRN Florastor, 250 mg= 1 Cap, Oral, Daily gabapentin, 100 mg= 1 Cap, Oral, QPM hydrocortisone, 5 mg= 0.5 Tab, Oral, BID lamoTRIgine, 100 mg= 1 Tab, Oral, BID levothyroxine, 100 mcg= 1 Tab, Oral, Daily Lopressor, 12.5 mg= 0.5 Tab, Oral, BID Melatonin, 9 mg= 3 Tab, Oral, At Bedtime memantine, 10 mg= 2 Tab, Oral, BID montelukast, 10 mg= 1 Tab, Oral, Daily multivitamin, 1 Tab, Oral, Daily naloxone, 0.1 mg= 0.25 mL, IV Push, Q5Min, PRN oxyCODONE, 10 mg= 2 Tab, Oral, Q4H, PRN oxyCODONE, 15 mg= 1 Tab, Oral, Q4H, PRN Protonix, 40 mg= 1 Tab, Oral, Daily Proventil 2.5 mg/3 mL (0.083%) inhalation solution, 3 mL, Nebulized Inhalation , RT_Q6H QUEtiapine, 300 mg= 3 Tab, Oral, At Bedtime Restasis 0.05% ophthalmic emulsion, 1 Drop, Eyes Both, Q12H senna, 8.6 mg= 1 Tab, Oral, At Bedtime, PRN Senokot S, 2 Tab, Oral, At Bedtime Sodium Chloride 0.9% intravenous solution 1,000 mL, 1000 mL, IntraVENous Toradol, 15 mg= 0.5 mL, IV Push, Q6H, PRN Tylenol, 1000 mg= 2 Tab, Oral, Q8H Zofran, 4 mg= 2 mL, IV Push, Q8H, PRN zolpidem, 5 mg= 1 Tab, Oral, At Bedtime, PRN Lab Results Test Name Test Result Date/Time Sodium Level 146 mmol/L 07/24/2019 03:41 EST Potassium Level 4.2 mmol/L 07/24/2019 03:41 EST Chloride Level 115 mmol/L (High) 07/24/2019 03:41 EST Carbon Dioxide Level 29 mmol/L 07/24/2019 03:41 EST Anion Gap 6 (Low) 07/24/2019 03:41 EST Glucose Level 104 mg/dL 07/24/2019 03:41 EST Blood Urea Nitrogen 13 mg/dL 07/24/2019 03:41 EST Creatinine Level 1.00 mg/dL 07/24/2019 03:41 EST eGFR >60 mL/min/1.73m2 07/24/2019 03:41 EST eGFR NonAfrican 56 mL/min/1.73m2 (Low) 07/24/2019 03:41 EST Bun/Creatinine 13.0 07/24/2019 03:41 EST Calcium Level 8.7 mg/dL 07/24/2019 03:41 EST Protein Total 5.0 Gram/dL (Low) 07/24/2019 03:41 EST Albumin Level 2.7 Gram/dL (Low) 07/24/2019 03:41 EST Globulin 2.3 Gram/dL 07/24/2019 03:41 EST A/G Ratio 1.2 07/24/2019 03:41 EST Bilirubin Total 0.3 mg/dL 07/24/2019 03:41 EST Alk Phos 81 Units/Liter 07/24/2019 03:41 EST AST 23 Units/Liter 07/24/2019 03:41 EST ALT 19 Units/Liter 07/24/2019 03:41 EST Glucose POC2 99 mg/dL 07/23/2019 23:50 EST WBC 5.4 K/uL 07/24/2019 03:41 EST RBC 2.73 Million/uL (Low) 07/24/2019 03:41 EST Hgb 8.4 Gram/dL (Low) 07/24/2019 03:41 EST Hct 27.2 % (Low) 07/24/2019 03:41 EST MCV 99.6 fL (High) 07/24/2019 03:41 EST MCH 30.8 pg 07/24/2019 03:41 EST MCHC 30.9 Gram/dL (Low) 07/24/2019 03:41 EST Platelet Count 117 K/uL (Low) 07/24/2019 03:41 EST MPV 10.0 fL 07/24/2019 03:41 EST RDW 14.7 % (High) 07/24/2019 03:41 EST Slide Review No 07/24/2019 03:41 EST Electronically signed by [facility] Conversion Lobby Attendant Cerner at 11/19/2022 8:35 PM CDT documented in this encounter Plan of Treatment Not on file documented as of this encounter Visit Diagnoses Not on filedocumented in this encounter
--- OUTSIDE RECORDS SUMMARY | 2025-01-23 08:35 | XMS_ITS | Encounter Summary ---
Author Organization [employer] Address [address] [place] [id number] Care Team Providers Care Police Specialist Name Role Phone Unavailable Primary Care Provider Unavailabl e Encounter Details Date Type Department Care Team (Late st Contact Info) Description 07/25/2019 Transcribed Document [facility] [place] Family Medicine [facility] [place] [address] ProviderSonia MD [address] [place], [place] [address] Social History Tobacco Use Types Packs/Day Years Used Date Smoking Tobacco: Never Assessed Comments Unknown Sex and Gender Information Value Date Recorded Sex Assigned at Not on file Legal Sex Female 1:42 PM CDT Gender Identity Not on file Sexual Orientation Not on file documented as of this encounter Miscellaneous Notes * Cerner Conversion Note - Historical ProviderMD - 07/25/2019 3:14 PM GENERAL DENTIST On Going Discharge Planning Entered On: 07/25/2019 15:17 EST Performed On: 07/25/2019 15:14 EST by NICHOLAS HOGUE, RN-Cupola RepairerEyeglass Inspector Progress Note Discharge Arrangements : Patient Post-Acute Information Patient Name: SANDIE FRANK Gender: Female : [birth year] Age: 63 Years No Post-Acute Placement(s) Listed No Post-Acute Service(s) Listed No Curaspan Referral(s) Listed Discharge Options Discussed with Patient : Short term rehabilitation NICHOLAS HOGUE, RN-Cupola Repairer - 07/25/2019 15:24 EST Narrative Progress Note Narrative Progress Note : JAS sent text to Catalina with [facility] this am requesting update on bed availability. She has the pt being reviewed by their physician. CM set ambulance tentatively for tomorrow at 1400. Awaiting word from [facility]. CM updated pt and family. Historical Progress Note : 07/[address] mrs Frank and she is awake and les shaky today... States she wants to go to rehab for getting strength and balance .. Await [facility] eval ,, She 's had her 3 Midnight stay in hospital .... LAMBERT Steele, RN-Cupola Repairer - 07/24/19 15:20:00 NICHOLAS HOGUE, RN-Cupola Repairer - 07/25/2019 15:24 EST Electronically signed by Raman [facility] Conversion Salesperson [employer] Cerner at 11/19/2022 8:37 PM CDT documented in this encounter Plan of Treatment Not on file documented as of this encounter Visit Diagnoses Not on filedocumented in this encounter
--- OUTSIDE RECORDS SUMMARY | 2025-01-23 08:35 | XMS_ITS | Encounter Summary ---
Author Organization [employer] Address [address] [place] [address] Care Team Providers Care Public Address Systems Mechanic Name Role Phone Unavailable Primary Care Provider Unavailabl e Encounter Details Date Type Department Care Team (Late st Contact Info) Description 07/24/2019 Transcribed Document [facility] [place] [facility] [place] [address] ProviderSonia MD [address] [place], [place] [id number] Social History Tobacco Use Types Packs/Day Years Used Date Smoking Tobacco: Never Assessed Comments Unknown Sex and Gender Information Value Date Recorded Sex Assigned at Not on file Legal Sex Female 1:42 PM CDT Gender Identity Not on file Sexual Orientation Not on file documented as of this encounter Miscellaneous Notes * Cerner Conversion Note - Historical ProviderMD - 07/24/2019 2:00 PM CONTRACT ADMINISTRATION COORDINATOR Pain Assessment Entered On: 07/24/2019 14:29 EST Performed On: 07/24/2019 14:36 EST by Samantha Lim RN Intervention Information: acetaminophen Performed by Samantha Lim RN on 07/24/2019 13:36:00 EST acetaminophen,1000mg Oral Pain Assessment Pain Assessment : Follow-up assessment Pain Scale Goal : 5 Pain Scale Used : 0-10 Scale Samantha Lim RN - 07/24/2019 14:29 EST Pain Scale Intensity : 2 Samantha Lim RN - 07/24/2019 14:29 EST Image 4 - Images currently included in the form version of this document have not been included in the text rendition version of the form. documented in this encounter Plan of Treatment Not on file documented as of this encounter Visit Diagnoses Not on filedocumented in this encounter
--- OUTSIDE RECORDS SUMMARY | 2025-01-23 08:35 | XMS_ITS | Encounter Summary ---
Author Organization [employer] Address [address] [place] [address] Care Team Providers Care Environmental Protection Forester Name Role Phone Unavailable Primary Care Provider Unavailabl e Encounter Details Date Type Department Care Team (Late st Contact Info) Description 07/24/2019 Transcribed Document [facility] [place] [facility] [place] [address] ProviderSonia MD [address] [place], [place] [id number] Social History Tobacco Use Types Packs/Day Years Used Date Smoking Tobacco: Never Assessed Comments Unknown Sex and Gender Information Value Date Recorded Sex Assigned at Not on file Legal Sex Female 1:42 PM CDT Gender Identity Not on file Sexual Orientation Not on file documented as of this encounter Miscellaneous Notes * Cerner Conversion Note - Historical ProviderMD - 07/24/2019 3:17 PM INVESTIGATOR OPERATOR On Going Discharge Planning Entered On: 07/24/2019 15:20 EST Performed On: 07/24/2019 15:17 EST by LAMBERT HERNANDEZ, RN-LaceworkerSoftware Build Engineer Progress Note Discharge Arrangements : Patient Post-Acute Information Patient Name: SANDIE FRANK Gender: Female : [birth year] Age: 63 Years No Post-Acute Placement(s) Listed No Post-Acute Service(s) Listed No Curaspan Referral(s) Listed Discharge Options Discussed with Patient : DME, Home Health, Short term rehabilitation LAMBERT HERNANDEZ, RN-Laceworker - 07/24/2019 15:17 EST Narrative Progress Note Narrative Progress Note : 07/[address] met with mrs Frank and she is awake and les shaky today... States she wants to go to rehab for getting strength and balance .. Await JUAN garsia ,, She 's had her 3 Midnight stay in hospital .... LAMBERT Steele, RN-Laceworker - 07/24/2019 15:17 EST Electronically signed by [facility], [facility] Conversion Lead Network Engineer Cerner at 11/19/2022 8:25 PM CDT documented in this encounter Plan of Treatment Not on file documented as of this encounter Visit Diagnoses Not on filedocumented in this encounter
--- OUTSIDE RECORDS SUMMARY | 2025-01-23 08:35 | XMS_ITS | Encounter Summary ---
Author Organization [employer] Address [address] [place] [address] Care Team Providers Care Shellfish Processing Machine Tender Name Role Phone Unavailable Primary Care Provider Unavailabl e Encounter Details Date Type Department Care Team (Late st Contact Info) Description 07/24/2019 Transcribed Document [facility] [address] [place] [address] Travis Robles MD [address] [place], [place] [id number] Social History Tobacco Use Types Packs/Day Years Used Date Smoking Tobacco: Never Assessed Comments Unknown Sex and Gender Information Value Date Recorded Sex Assigned at Not on file Legal Sex Female 1:42 PM CDT Gender Identity Not on file Sexual Orientation Not on file documented as of this encounter Miscellaneous Notes * Cerner Conversion Note - Travis Robles MD - 07/24/2019 10:30 AM EST Patient: SANDIE FRANK Age: 63 years Sex: Female : 1955 Associated Diagnoses: None Author: TRAVIS ROBLES MD-INT Subjective Chief complaint. Tuesday, July 23, 2019. No fevers or chills. No shortness of breath coughing wheezing. She has a right hip pain postoperatively and she's working with physical therapy with the , nurse, disease case manager rn all the bedside. She look like she is about to fallout ofthe bed. The patient's was asking about taking her home. He wanted to know if Dr. Patrick Knutson M.D. with orthopedic surgery actually goes to see patients at the [facility] That he does not go to the [facility] although 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 Physical therapy strongly agreed that he needs to go to inpatient rehabilitation either [facility] are at the [facility]. No fevers or chills. No nausea vomiting. No diarrhea constipation. Respiratory concern is she goes home with just her old her that she is a very high risk of falling and that could be life ending episode for her given her hip surgery. Thursday, July 24, 2019. Patient's doing a little [...] She is still agreeable to going to penitentiary facility. Patient's nurse and the patient's disease case manager rn who saw her upstairs saw her again today was at the bedside and they all agree this seems like a super reasonable approach. Review of Systems Constitutional: Weakness, Decreased activity, [...] list: Medical Adrenal insufficiency / SNOMED CT 9149518341 / Confirmed Aortic valve stenosis / SNOMED CT 779677585 / Confirmed Arthritis / SNOMED CT 7995901 / Confirmed Asthma / SNOMED CT 140535594 / Confirmed At risk for sleep apnea / IMO 86855306 / Confirmed Cataracts, both eyes / SNOMED CT 054473658 / Confirmed chronic back pain / SNOMED CT 040036036 / Confirmed chronic diarrhea / SNOMED CT 341649944 / Confirmed Chronic kidney disease / SNOMED CT 7410513940 / Confirmed B12 deficiency / SNOMED CT 009579741 / Confirmed Dementia / SNOMED CT 10548324 / Confirmed depression / SNOMED CT 63383568 / Confirmed uses Renexa / SNOMED CT 5824765 / Confirmed chronic hydrocort use / SNOMED CT 1646375 / Confirmed peripheral neuropathy / SNOMED CT 41764301 / Confirmed GERD / SNOMED CT 381603853 / Confirmed fibromyalgia / SNOMED CT 31785883 / Confirmed Glaucoma / SNOMED CT 34931700 / Confirmed migraine headaches / SNOMED CT 667808326 / Confirmed hx cataract surgery bilateral / SNOMED CT 4218501467 / Confirmed hx. chest pain / SNOMED CT 7369302412 / Confirmed hx colon resection secondary decreased function / SNOMED CT 3843070599 / Confirmed hx. frequent UTIs / SNOMED CT 7262112050 / Confirmed high cholesterol / SNOMED CT 77657843 / Confirmed high blood pressure / SNOMED CT 7265600800 / Confirmed Hypothyroidism / SNOMED CT 76748898 / Confirmed kidney stone right kidney current and hx / SNOMED CT 770458003 / Confirmed Osteoporosis / SNOMED CT 318027460 / Confirmed Pneumonia / SNOMED CT 661822819 / Confirmed restless leg syndrome / SNOMED CT 77065087 / Confirmed rheumatoid arthritis / SNOMED CT 222221502 / Confirmed Seasonal allergies / SNOMED CT 3963569314 / Confirmed Vitamin D deficiency / SNOMED CT 80983896 / Confirmed Resolved: Hypotension / SNOMED CT 70460027 Canceled: adrenal insufficiency / SNOMED CT 5371363883 Canceled: Hyperthyroidism / SNOMED CT [id number], Active Problems (33) Adrenal insufficiency Aortic valve [...] azelastine 137 mcg/inh (0.1%) nasal spray: 2 Renner, Nasal, BID, PRN: Allergies budesonide: 0.5 mg, [...] intl units oral capsule: 1 Cap, Oral, M8Scjmg, 0 Refill(s) Dilaudid: pain pump, 0 Refill(s) Flax Seed Oil: 1,200 mg, Oral, BID, 0 Refill(s) Flonase: 1 Renner, Nostrils Both, BID Lunesta: 3 mg, Oral, [...] azelastine 205.5 mcg/inh (0.15%) nasal spray: 2 Renner, Nasal, BID, PRN: for allergy symptoms, 0 [...] azelastine 205.5 mcg/inh (0.15%) nasal spray 2 Renner, PRN, Nasal, BID biotin 5 mg, Oral, [...] 50,000 Int Units = 1 Cap, Oral, [id number] Dilaudid donepezil 23 mg, Oral, Daily famotidine 40 mg, Oral, BID Flax Seed Oil 1,200 mg, Oral, BID Flonase 1 Renner, Nostrils Both, BID gabapentin 100 mg oral [...] azelastine 137 mcg/spray nasal 30 mL 2 Renner, Nasal, BID bisacodyl 10 mg supp 10 [...] 24 hrs) Last Charted Minimum Maximum Temp 98 (JUL 24:36) 97.7 (JUL 24:) 98 (JUL 23 18:45) Apical HR 80 (JUL 23 20:33) 80 (JUL 23 20:33) 80 (JUL 23 20:33) Mon HR 77 (JUL 24 12:26) 65 (JUL 24:) 90 (JUL 23 16:56) Resp Rate 17 (JUL 24 09:36) 14 (JUL 24:) 17 (JUL 24 09:36) SBP 109 (JUL 24 09:36) 102 (JUL 24 06:31) H 151 (JUL 23 23:51) DBP L 48 (JUL 24:36) L 42 (JUL 24:) 77 (JUL 23:31) MAP 62 (JUL 24 09:36) 57 (JUL 24 06:31) 86 (JUL 23:31) SpO2 L 93 (JUL 24:36) L 91 (JUL 24:) 95 (JUL 23 18:45) Physical Examination VS/Measurements Vitals Signs (last 24 hrs) Last Charted Minimum Maximum Temp 98 (JUL 24 09:36) 97.7 (JUL 24:31) 98 (JUL 23 18:45) Apical HR 80 (JUL 23 20:33) 80 (JUL 23 20:33) 80 (JUL 23 20:33) Mon HR 77 (JUL 24 12:26) 65 (JUL 24:31) 90 (JUL 23 16:56) Resp Rate 17 (JUL 24 09:36) 14 (JUL 24:31) 17 (JUL 24 09:36) SBP 109 (JUL 24 09:36) 102 (JUL 24 06:31) H 151 (JUL 23 23:51) DBP L 48 (JUL 24 09:36) L 42 (JUL 24:31) 77 (JUL 23:31) MAP 62 (JUL 24 09:36) 57 (JUL 24 06:31) 86 (JUL 23:31) SpO2 L 93 (JUL 24:36) L 91 (JUL 24:31) 95 (JUL 23 18:45) General: Alert and oriented, Mild distress, Obese, [...] review: Labs (Last four charted values) WBC 5.4 (JUL 24) HB L 8.4 (JUL 24) L 9.5 (JUL 23) HCT L 27.2 (JUL 24) L 30.5 (JUL 23) Plt L 117 (JUL 24) Na 146 (JUL 24) 145 (JUL 23) K 4.2 (JUL 24) 4.8 (JUL 23) Cl H 115 (JUL 24) H 113 (JUL 23) CO2 29 (JUL 24) 30 (JUL 23) BUN 13 (JUL 24) 13 (JUL 23) Cr 1.00 (JUL 24) 0.99 (JUL 23) Glu R 104 (JUL 24) H 134 (JUL 23) Ca 8.7 (JUL 24) 8.5 (JUL 23) AST 23 (JUL 24) ALT 19 (JUL 24) ALK P 81 (JUL 24) T Bili 0.3 (JUL 24) PTN L 5.0 (JUL 24) ALB L 2.7 (JUL 24) . Impression and [...] is obese and debilitated, her , nurse, disease case manager rn THE bedside. The really voiced some interest [...] the afternoon. The patient's nurse and her disease case manager rn who saw her yesterday at the bedside and we'll concur that she would benefit from short-term penitentiary facility placement given her right hip replacement. Explained to the patient that if she were to go home and fall could be life ending situation. Recheck a CBC and basic metabolic profile in the morning. Venafiation system used. Computer program makes numerous spelling grammar mistakes. If you have any questions or concerns do not hesitate call Dr. Travis Lux at cell phone number [phone]. documented in this encounter Plan of Treatment Not on file documented as of this encounter Visit Diagnoses Not on filedocumented in this encounter
--- OUTSIDE RECORDS SUMMARY | 2025-01-23 08:35 | XMS_ITS | Encounter Summary ---
Author Organization [employer] Address [address] [facility] [place] [address] Care Team Providers Care Nut Blanker Operator Name Role Phone Unavailable Primary Care Provider Unavailabl e Encounter Details Date Type Department Care Team (Late st Contact Info) Description 07/27/2019 Transcribed Document [facility] [address] [place] [address] Travis Robles MD [address] [place] [address] Social History Tobacco Use Types Packs/Day Years Used Date Smoking Tobacco: Never Assessed Comments Unknown Sex and Gender Information Value Date Recorded Sex Assigned at Not on file Legal Sex Female 1:42 PM CDT Gender Identity Not on file Sexual Orientation Not on file documented as of this encounter Miscellaneous Notes * Cerner Conversion Note - Travis Robles MD - 07/27/2019 11:50 AM EST Patient: SANDIE FRANK Age: 63 years Sex: Female : 1955 Associated Diagnoses: None Author: TRAVIS ROBLES MD-INT Subjective Chief complaint. Tuesday, July 23, 2019. No fevers or chills. No shortness of breath coughing wheezing. She has a right hip pain postoperatively and she's working with physical therapy with the , nurse, case coordinator all the bedside. She look like she is about to fallout ofthe bed. The patient's was asking about taking her home. He wanted to know if Dr. Patrick Knutson M.D. with orthopedic surgery actually goes to see patients at the [facility] That he does not go to the [facility] although 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 Physical therapy strongly agreed that he needs to go to inpatient rehabilitation either [facility] are at the [facility]. No fevers or chills. No nausea vomiting. [...] She is still agreeable to going to chcf facility. Patient's nurse and the patient's case coordinator who saw her upstairs saw her again [...] No diarrhea comes patient. No dysuria hematuria. Stay, July 26, 2019. No fevers or chills. No shortness of breath. Patient's doing well postoperatively. is at the bedside as well as the case coordinator. They're looking at placement options. Apparently wanted facilities turn her down because of Lunesta apparently it's expensive medication and then there is a inhaler that she was getting that was expensive. I told her that we could probably find more affordable alternatives at least while she is in the chcf facility if necessary. Saturday, July 27, 2019. No fevers or chills. No nausea vomiting. She states that her right hip pain is doing better 7 at time as she does work with physical therapy. Her family was not present but she is actually pretty much with that she is oriented to name, date of but she does not know the age. She issues in the hospital but does not know the year she thinks the year is 1971. I'm not sure how close this is to her baseline but I suspect it's Precose. Review of Systems Constitutional: Weakness, Decreased activity, No fever, No chills. Respiratory: No shortness of breath, No cough. Cardiovascular: No chest pain, No palpitations. Gastrointestinal: No nausea, No vomiting, No diarrhea, No constipation. Genitourinary: No dysuria. Musculoskeletal: Right total hip replacement. Neurologic: Alert and oriented X4, No confusion. [...] list: Medical Adrenal insufficiency / SNOMED CT 0953356347 / Confirmed Aortic valve stenosis / SNOMED CT 651277195 / Confirmed Arthritis / SNOMED CT 4509347 / Confirmed Asthma / SNOMED CT 556923327 / Confirmed At risk for sleep apnea / IMO 01032886 / Confirmed Cataracts, both eyes / SNOMED CT 177145429 / Confirmed chronic back pain / SNOMED CT 076344882 / Confirmed chronic diarrhea / SNOMED CT 400540327 / Confirmed Chronic kidney disease / SNOMED CT 0522710181 / Confirmed B12 deficiency / SNOMED CT 970382313 / Confirmed Dementia / SNOMED CT 81889743 / Confirmed depression / SNOMED CT 59147290 / Confirmed uses Renexa / SNOMED CT 9966004 / Confirmed chronic hydrocort use / SNOMED CT 9798260 / Confirmed peripheral neuropathy / SNOMED CT 40609098 / Confirmed GERD / SNOMED CT 545953789 / Confirmed fibromyalgia / SNOMED CT 42080539 / Confirmed Glaucoma / SNOMED CT 37228428 / Confirmed migraine headaches / SNOMED CT 066039568 / Confirmed hx cataract surgery bilateral / SNOMED CT 1272092402 / Confirmed hx. chest pain / SNOMED CT 4492741213 / Confirmed hx colon resection secondary decreased function / SNOMED CT 2242543680 / Confirmed hx. frequent UTIs / SNOMED CT 7578180714 / Confirmed high cholesterol / SNOMED CT 04744200 / Confirmed high blood pressure / SNOMED CT 7873347541 / Confirmed Hypothyroidism / SNOMED CT 16662816 / Confirmed kidney stone right kidney current and hx / SNOMED CT 525344616 / Confirmed Osteoporosis / SNOMED CT 199170783 / Confirmed Pneumonia / SNOMED CT 298774763 / Confirmed restless leg syndrome / SNOMED CT 05575192 / Confirmed rheumatoid arthritis / SNOMED CT 025850979 / Confirmed Seasonal allergies / SNOMED CT 9215430941 / Confirmed Vitamin D deficiency / SNOMED CT 88701295 / Confirmed Resolved: Hypotension / SNOMED CT 02446260 Canceled: adrenal insufficiency / SNOMED CT 8629414814 Canceled: Hyperthyroidism / SNOMED CT 12222CMO-[id number], Active Problems (33) Adrenal insufficiency Aortic valve [...] Laxative: 10 mg, Rectal, 1-Time, PRN: Constipation Flonase: 1 [place], Nostrils Both, BID Florastor: 250 mg, Oral, Daily Lopressor: 12.5 [...] PRN: Wheezing aspirin: 81 mg, Oral, BID budesonide: 0.5 mg, Nebulized Inhalation, BID cloNIDine [...] 5 mg, Oral, At Bedtime, PRN: Insomnia Incomplete Alrex 0.2% ophthalmic suspension: 1 Drop, Eyes Both, BID Documented Medications Documented Alrex 0.2% ophthalmic suspension: 1 Drop, Eyes Both, BID, 0 Refill(s) Crestor 20 mg oral tablet: 1 Tab, Oral, At Bedtime, 0 Refill(s) Cymbalta 30 mg oral delayed release capsule: 1 Cap, Oral, QPM, 0 Refill(s) Cymbalta 60 mg oral delayed release capsule: 1 Cap, Oral, QAM, 0 Refill(s) Decara 50,000 intl units oral capsule: 1 Cap, Oral, [id number], 0 Refill(s) Dilaudid: pain pump, 0 Refill(s) Flax Seed Oil: 1,200 mg, Oral, BID, 0 Refill(s) Flonase: 1 [place], Nostrils Both, BID Lunesta: 3 mg, Oral, [...] azelastine 205.5 mcg/inh (0.15%) nasal spray: 2 [place], Nasal, BID, PRN: for allergy symptoms, 0 [...] azelastine 205.5 mcg/inh (0.15%) nasal spray 2 [place], PRN, Nasal, BID biotin 5 mg, Oral, [...] 50,000 Int Units = 1 Cap, Oral, [id number] Dilaudid donepezil 23 mg, Oral, Daily famotidine 40 mg, Oral, BID Flax Seed Oil 1,200 mg, Oral, BID Flonase 1 [place], Nostrils Both, BID gabapentin 100 mg oral [...] Oral, Daily , Medications (38) Active Scheduled: (26) acetaminophen 500 mg tab 1,000 mg 2 [...] cap 60 mg 1 Cap, Oral, QAM fluticasone 0.05% nasal spray 1 [place], Nostrils Both, BID gabapentin 100 mg cap 100 mg 1 [...] mL 1,000 mL, IntraVENous, 50 mL/Hr PRN: (11) albuterol 0.083% inh soln 3 mL 2.5 mg, Inhalation, Q4H bisacodyl 10 mg supp 10 mg 1 [...] 24 hrs) Last Charted Minimum Maximum Temp 97.9 (JUL 27 10:30) 97.9 (JUL 27 10:30) 98 (JUL 26 14:22) Apical HR 63 (JUL 27 10:09) 63 (JUL 27 10:09) 83 (JUL 26 20:57) Mon HR 66 (JUL 27 10:30) 62 (JUL 27 09:03) 88 (JUL 26 21:22) Resp Rate 16 (JUL 27 10:30) 16 (JUL 27 05:55) 18 (JUL 26 14:22) SBP 103 (JUL 27 10:30) 103 (JUL 27 10:30) H 146 (JUL 26 18:32) DBP L 59 (JUL 27 10:30) L 52 (JUL 27 01:39) 76 (JUL 27 05:55) MAP 67 (JUL 27 10:30) 67 (JUL 27 10:30) 87 (JUL 26 18:32) SpO2 L 92 (JUL 27 10:30) L 92 (JUL 27 10:30) 98 (JUL 27 05:55) Physical Examination VS/Measurements Vitals Signs (last 24 hrs) Last Charted Minimum Maximum Temp 97.9 (JUL 27 10:30) 97.9 (JUL 27 10:30) 98 (JUL 26 14:22) Apical HR 63 (JUL 27 10:09) 63 (JUL 27 10:09) 83 (JUL 26 20:57) Mon HR 66 (JUL 27 10:30) 62 (JUL 27 09:03) 88 (JUL 26 21:22) Resp Rate 16 (JUL 27 10:30) 16 (JUL 27 05:55) 18 (JUL 26 14:22) SBP 103 (JUL 27 10:30) 103 (JUL 27 10:30) H 146 (JUL 26 18:32) DBP L 59 (JUL 27 10:30) L 52 (JUL 27 01:39) 76 (JUL 27 05:55) MAP 67 (JUL 27 10:30) 67 (JUL 27 10:30) 87 (JUL 26 18:32) SpO2 L 92 (JUL 27 10:30) L 92 (JUL 27 10:30) 98 (JUL 27 05:55) General: Alert and oriented, Mild distress, Obese, [...] review: Labs (Last four charted values) WBC 4.2 (JUL 27) 4.5 (JUL 26) 5.1 (JUL 25) 5.4 (JUL 24) HB L 8.8 (JUL 27) L 8.5 (JUL 26) L 8.6 (JUL 25) L 8.4 (JUL 24) HCT L 27.8 (JUL 27) L 26.9 (JUL 26) L 27.3 (JUL 25) L 27.2 (JUL 24) Plt 165 (JUL 27) L 152 (JUL 26) L 127 (JUL 25) L 117 (JUL 24) Na H 148 (JUL 27) H 147 (JUL 26) H 148 (JUL 25) 146 (JUL 24) K 4.0 (JUL 27) 4.2 (JUL 26) 4.5 (JUL 25) 4.2 (JUL 24) Cl H 114 (JUL 27) H 113 (JUL 26) H 115 (JUL 25) H 115 (JUL 24) CO2 29 (JUL 27) 29 (JUL 26) 28 (JUL 25) 29 (JUL 24) BUN 9 (JUL 27) 9 (JUL 26) 10 (JUL 25) 13 (JUL 24) Cr 1.02 (JUL 27) 0.96 (JUL 26) 0.92 (JUL 25) 1.00 (JUL 24) Glu R H 113 (JUL 27) 97 (JUL 26) 93 (JUL 25) 104 (JUL 24) Ca 8.8 (JUL 27) 9.0 (JUL 26) 8.9 (JUL 25) 8.7 (JUL 24) AST 26 (JUL 25) 23 (JUL 24) [...] obese and debilitated, her , nurse, case coordinator THE bedside. The really voiced some interest [...] afternoon. The patient's nurse and her case coordinator who saw her yesterday at the bedside and we'll concur that she would benefit from short-term ch[facility] facility placement given her right hip replacement. [...] any more bleeding or significant blood loss. Stay, July 26, 2019. 25 minutes spent on follow-up this really nice obese debilitated lady with some dementia seizure disorders chronic pain issues tolerated her right hip surgery without issue she is doing well this morning her white count stable at 4, hemoglobin stable at 8.5, creatinine screw 0.9. PATIENT, her , case coordinator. She was turned down by the [facility] because she's on some expensive medications including Lunesta which I told her we could change while she is in the hospital as well as some nebulizer treatments that are apparently expensive so I'm happy to change these maybe can ask our pharmacist here what the cheapest are cheaper alternative is that would be appropriate for the patient but more affordable for the rehabilitation facility. July 27, 2019. 25 minutes spent on follow-up with a 63-year-old lady with mild dementia she is pleasant cooperative pains well-controlled she worked with physical therapy actually [facility] for short-term rehabilitation. is currently not at the bedside. Recheck a CBC BMP in the morning. Today her white count stable at 4, hemoglobin increased from 8.5 up to 8.8 which is a good sign we'll recheck a CBC and BMP in the morning. Standpoint she can go whenever she gets a bed at a rehabilitation facility. Enefgy dictation system used. Computer program makes numerous spelling grammar mistakes. If you have any questions or concerns do not hesitate call Dr. Travis Lux at cell phone number [phone]. documented in this encounter Plan of Treatment Not on file documented as of this encounter Visit Diagnoses Not on filedocumented in this encounter
--- OUTSIDE RECORDS SUMMARY | 2025-01-23 08:35 | XMS_ITS | Encounter Summary ---
Author Organization [employer] Address [address] [place] [address] Care Team Providers Care Senior Quality Analyst Name Role Phone Unavailable Primary Care Provider Unavailabl e Encounter Details Date Type Department Care Team (Late st Contact Info) Description 07/26/[address] [facility] Family Medicine [facility] [place] [address] ProviderSonia MD [address] [place], [place] [phone] Social History Tobacco Use Types Packs/Day Years Used Date Smoking Tobacco: Never Assessed Comments Unknown Sex and Gender Information Value Date Recorded Sex Assigned at Not on file Legal Sex Female 1:42 PM CDT Gender Identity Not on file Sexual Orientation Not on file documented as of this encounter Miscellaneous Notes * Cerner Conversion Note - Historical ProviderMD - 07/26/2019 5:00 PM WIRE INSPECTOR Chart Check - Review Order Profile Entered On: 07/26/2019 17:15 EST Performed On: 07/26/2019 17:00 EST by Jennifer Coleman, RN Chart Check Powerplans Initiated/Discontinued as Appropriate : Yes All Active Orders Reviewed : Yes Jennifer Coleman, RN - 07/26/2019 17:15 EST Electronically signed by Raman [facility] Conversion Trade Sales Assistant Cerner at 11/19/2022 8:40 PM CDT documented in this encounter Plan of Treatment Not on file documented as of this encounter Visit Diagnoses Not on filedocumented in this encounter
--- OUTSIDE RECORDS SUMMARY | 2025-01-23 08:35 | XMS_ITS | Encounter Summary ---
Author Organization [employer] Address [address] [place] [address] Care Team Providers Care Accounting Manager Cpa Name Role Phone Unavailable Primary Care Provider Unavailabl e Encounter Details Date Type Department Care Team (Late st Contact Info) Description 07/25/2019 Transcribed Document [facility] [place] [facility] [place] [address] ProviderSonia MD [address], [place] [id number] Social History Tobacco Use Types Packs/Day Years Used Date Smoking Tobacco: Never Assessed Comments Unknown Sex and Gender Information Value Date Recorded Sex Assigned at Not on file Legal Sex Female 1:42 PM CDT Gender Identity Not on file Sexual Orientation Not on file documented as of this encounter Miscellaneous Notes * Cerner Conversion Note - Historical ProviderMD - 07/25/2019 5:00 AM LEAD ELECTRICAL CONTROLS ENGINEER Chart Check - Review Order Profile Entered On: 07/25/2019 5:19 EST Performed On: 07/25/2019 5:00 EST by Barrington Roberts RN Chart Check Powerplans Initiated/Discontinued as Appropriate : Yes All Active Orders Reviewed : Yes Barrington Roberts RN - 07/25/2019 5:19 EST Electronically signed by Raman [facility] Conversion Supervisor Rose Grading Cerner at 11/19/2022 8:47 PM CDT documented in this encounter Plan of Treatment Not on file documented as of this encounter Visit Diagnoses Not on filedocumented in this encounter
--- OUTSIDE RECORDS SUMMARY | 2025-01-23 08:35 | XMS_ITS | Encounter Summary ---
Author Organization [employer] Address [address] [place] [address] Care Team Providers Care Flight Operation Coordinator Name Role Phone Unavailable Primary Care Provider Unavailabl e Encounter Details Date Type Department Care Team (Late st Contact Info) Description 07/27/2019 Transcribed Document [facility] Family Medicine [facility] [place] [address] ProviderSonia MD [address] [place], [place] [phone] Social History Tobacco Use Types Packs/Day Years Used Date Smoking Tobacco: Never Assessed Comments Unknown Sex and Gender Information Value Date Recorded Sex Assigned at Not on file Legal Sex Female 1:42 PM CDT Gender Identity Not on file Sexual Orientation Not on file documented as of this encounter Miscellaneous Notes * Cerner Conversion Note - Historical ProviderMD - 07/27/2019 6:00 AM MAPLE SYRUP MAKER Pain Assessment Entered On: 07/27/2019 6:58 EST Performed On: 07/27/2019 7:07 EST by Barrington Roberts RN Intervention Information: acetaminophen Performed by Barrington Roberts RN on 07/27/2019 06:07:00 EST acetaminophen,1000mg Oral Pain Assessment Pain Assessment : Follow-up assessment Pain Scale Goal : 5 Pain Intervention, Drug : Medicated Pain Improved by Intervention : Yes Barrington Roberts RN - 07/27/2019 6:58 EST Electronically signed by Raman [facility] Conversion Spot Cleaner Cerner at 11/19/2022 8:21 PM CDT documented in this encounter Plan of Treatment Not on file documented as of this encounter Visit Diagnoses Not on filedocumented in this encounter
--- OUTSIDE RECORDS SUMMARY | 2025-01-23 08:36 | XMS_ITS | Encounter Summary ---
Author Organization [employer] Address [address] [place] [address] Care Team Providers Care Uniforms Sales Representative Name Role Phone Unavailable Primary Care Provider Unavailabl e Encounter Details Date Type Department Care Team (Late st Contact Info) Description 07/26/2019 Transcribed Document [facility] [place] [address] ProviderSonia MD [address] [place], [place] [phone] Social History Tobacco Use Types Packs/Day Years Used Date Smoking Tobacco: Never Assessed Comments Unknown Sex and Gender Information Value Date Recorded Sex Assigned at Not on file Legal Sex Female 1:42 PM CDT Gender Identity Not on file Sexual Orientation Not on file documented as of this encounter Miscellaneous Notes * Cerner Conversion Note - Historical ProviderMD - 07/26/2019 5:00 AM SOFTWARE RELIABILITY ENGINEER Chart Check - Review Order Profile Entered On: 07/26/2019 4:47 EST Performed On: 07/26/2019 5:00 EST by Barrington Roberts RN Chart Check Powerplans Initiated/Discontinued as Appropriate : Yes All Active Orders Reviewed : Yes Barrington Roberts RN - 07/26/2019 4:47 EST Electronically signed by Raman [facility] Conversion Embroidery Designer Cerner at 11/19/2022 8:43 PM CDT documented in this encounter Plan of Treatment Not on file documented as of this encounter Visit Diagnoses Not on filedocumented in this encounter
--- OUTSIDE RECORDS SUMMARY | 2025-01-23 08:36 | XMS_ITS | Encounter Summary ---
Author Organization [employer] Address [address] [place] [address] Care Team Providers Care Hoop Maker Helper Machine Name Role Phone Unavailable Primary Care Provider Unavailabl e Encounter Details Date Type Department Care Team (Late st Contact Info) Description 07/26/2019 Transcribed Document [facility] [place] [facility] [place] [address] ProviderSonia MD [address] [place] [phone] Social History Tobacco Use Types Packs/Day Years Used Date Smoking Tobacco: Never Assessed Comments Unknown Sex and Gender Information Value Date Recorded Sex Assigned at Not on file Legal Sex Female 1:42 PM CDT Gender Identity Not on file Sexual Orientation Not on file documented as of this encounter Miscellaneous Notes * Cerner Conversion Note - Historical ProviderMD - 07/26/2019 2:00 PM PATIENT ACCOUNT SPECIALIST Pain Assessment Entered On: 07/26/2019 16:06 EST Performed On: 07/26/2019 14:29 EST by Jennifer Coleman RN Intervention Information: acetaminophen Performed by Jennifer Coleman RN on 07/26/2019 13:29:00 EST acetaminophen,1000mg Oral Pain Assessment Pain Assessment : Follow-up assessment Pain Scale Goal : 5 Pain Scale Used : 0-10 Scale Jennifer Coleman RN - 07/26/2019 16:06 EST Pain Scale Intensity : 5 Jennifer Coleman RN - 07/26/2019 16:06 EST Image 4 - Images currently included in the form version of this document have not been included in the text rendition version of the form. documented in this encounter Plan of Treatment Not on file documented as of this encounter Visit Diagnoses Not on filedocumented in this encounter
--- OUTSIDE RECORDS SUMMARY | 2025-01-23 08:36 | XMS_ITS | Encounter Summary ---
Author Organization [employer] Address [address] [place] [address] Care Team Providers Care Research Scientist Name Role Phone Unavailable Primary Care Provider Unavailabl e Encounter Details Date Type Department Care Team (Late st Contact Info) Description 07/26/2019 Transcribed Document [facility] Family Medicine [facility] [place] [address] ProviderSonia MD [address] [place], [place] [phone] Social History Tobacco Use Types Packs/Day Years Used Date Smoking Tobacco: Never Assessed Comments Unknown Sex and Gender Information Value Date Recorded Sex Assigned at Not on file Legal Sex Female 1:42 PM CDT Gender Identity Not on file Sexual Orientation Not on file documented as of this encounter Miscellaneous Notes * Cerner Conversion Note - Historical ProviderMD - 07/26/2019 3:24 PM VACUUM EXTRACTOR OPERATOR On Going Discharge Planning Entered On: 07/26/2019 15:40 EST Performed On: 07/26/2019 15:24 EST by NICHOLAS HOGUE, RN-Media ManagerGroup President Progress Note Discharge Arrangements : Patient Post-Acute Information Patient Name: SANDIE FRANK Gender: Female : [birth year] Age: 63 Years No Post-Acute Placement(s) Listed No Post-Acute Service(s) Listed No [place] Referral(s) Listed Discharge Options Discussed with Patient : Short term rehabilitation NICHOLAS HOGUE, RN-Media Manager - 07/26/2019 15:24 EST Narrative Progress Note Narrative Progress Note : Received call from Catalina pope MD at [facility] states the pt is declined for acute rehab and they are apprehensive about her coming to [facility] due to her physical level of care. CM relayed this to the pt and spouse and they agree to have the pt referred to the following: [facility], [facility] and [facility]. CM will fu for possible offers. Med list sent to [place] for review. Historical Progress Note : CM sent text to Est[place] with [facility] this am requesting update on bed availability. She has the pt being reviewed by their physician. CM set ambulance tentatively for tomorrow at 1400. Awaiting word from [facility]. NICHOLAS HOGUE, RN-Media Manager - 07/25/19 15:17:05 CM sent text to Estelline with [facility] this am requesting update on bed availability. She has the pt being reviewed by their physician. CM set ambulance tentatively for tomorrow at 1400. Awaiting word from [facility]. CM updated pt and family. NICHOLAS HOGUE, RN-Media Manager - 07/25/19 15:24:48 07/24 [address] mrs Frank and she is awake and les shaky today... States she wants to go to rehab for getting strength and balance .. Await [facility] eval ,, She 's had her 3 Midnight stay in hospital .... LAMBERT Steele, RN-Media Manager - 07/24/19 15:20:00 NICHOLAS HOGUE, RN-Media Manager - 07/26/2019 15:24 EST Electronically signed by Raman [facility] Conversion Juice Weigher Cerner at 11/19/2022 8:24 PM CDT documented in this encounter Plan of Treatment Not on file documented as of this encounter Visit Diagnoses Not on filedocumented in this encounter
--- OUTSIDE RECORDS SUMMARY | 2025-01-23 08:36 | XMS_ITS | Encounter Summary ---
Author Organization [employer] Address [address] [facility] [place] [address] Care Team Providers Care Fiscal Agent Name Role Phone Unavailable Primary Care Provider Unavailabl e Encounter Details Date Type Department Care Team (Late st Contact Info) Description 07/26/2019 Transcribed Document [facility] [address] [place] [address] Travis Robles MD [address] [place], [place] [id number] Social History Tobacco Use Types Packs/Day Years Used Date Smoking Tobacco: Never Assessed Comments Unknown Sex and Gender Information Value Date Recorded Sex Assigned at Not on file Legal Sex Female 1:42 PM CDT Gender Identity Not on file Sexual Orientation Not on file documented as of this encounter Miscellaneous Notes * Cerner Conversion Note - Travis Robles MD - 07/26/2019 8:16 AM EST Patient: SANDIE FRANK Age: 63 years Sex: Female : 1955 Associated Diagnoses: None Author: TRAVIS ROBLES MD-INT Subjective Chief complaint. Tuesday, July 23, 2019. No fevers or chills. No shortness of breath coughing wheezing. She has a right hip pain postoperatively and she's working with physical therapy with the , nurse, machine adjuster leader case trim all the bedside. She look like she is about to fallout ofthe bed. The patient's was asking about taking her home. He wanted to know if Dr. Patrick Knutson M.D. with orthopedic surgery actually goes to see patients at the [facility] That he does not go to the [facility] although 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 Physical therapy strongly agreed that he needs to go to inpatient rehabilitation either [facility] are at the [facility]. No fevers or chills. No nausea vomiting. [...] She is still agreeable to going to care home facility. Patient's nurse and the patient's machine adjuster leader case trim who saw her upstairs saw her again [...] at the bedside as well as the machine adjuster leader case trim. They're looking at placement options. Apparently wanted facilities turn her down because of Lunesta apparently it's expensive medication and then there is a inhaler that she was getting that was expensive. I told her that we could probably find more affordable alternatives at least while she is in the care home facility if necessary. Review of Systems Constitutional: Weakness, Decreased activity, [...] list: Medical Adrenal insufficiency / SNOMED CT 8045431794 / Confirmed Aortic valve stenosis / SNOMED CT 525769080 / Confirmed Arthritis / SNOMED CT 7590248 / Confirmed Asthma / SNOMED CT 195591094 / Confirmed At risk for sleep apnea / IMO 23396004 / Confirmed Cataracts, both eyes / SNOMED CT 016511576 / Confirmed chronic back pain / SNOMED CT 619853282 / Confirmed chronic diarrhea / SNOMED CT 695692517 / Confirmed Chronic kidney disease / SNOMED CT 1828348612 / Confirmed B12 deficiency / SNOMED CT 882334812 / Confirmed Dementia / SNOMED CT 67358660 / Confirmed depression / SNOMED CT 43163416 / Confirmed uses Renexa / SNOMED CT 4551700 / Confirmed chronic hydrocort use / SNOMED CT 3909101 / Confirmed peripheral neuropathy / SNOMED CT 92621345 / Confirmed GERD / SNOMED CT 743523824 / Confirmed fibromyalgia / SNOMED CT 50692268 / Confirmed Glaucoma / SNOMED CT 84857742 / Confirmed migraine headaches / SNOMED CT 047321787 / Confirmed hx cataract surgery bilateral / SNOMED CT 0784406120 / Confirmed hx. chest pain / SNOMED CT 5201640774 / Confirmed hx colon resection secondary decreased function / SNOMED CT 8558722697 / Confirmed hx. frequent UTIs / SNOMED CT 1384528901 / Confirmed high cholesterol / SNOMED CT 23164912 / Confirmed high blood pressure / SNOMED CT 2458030995 / Confirmed Hypothyroidism / SNOMED CT 03512031 / Confirmed kidney stone right kidney current and hx / SNOMED CT 311873615 / Confirmed Osteoporosis / SNOMED CT 136816352 / Confirmed Pneumonia / SNOMED CT 405693107 / Confirmed restless leg syndrome / SNOMED CT 69700224 / Confirmed rheumatoid arthritis / SNOMED CT 622205059 / Confirmed Seasonal allergies / SNOMED CT 6243396618 / Confirmed Vitamin D deficiency / SNOMED CT 49007035 / Confirmed Resolved: Hypotension / SNOMED CT 13752287 Canceled: adrenal insufficiency / SNOMED CT 2846576863 Canceled: Hyperthyroidism / SNOMED CT 22779ZEA-[id number], Active Problems (33) Adrenal insufficiency Aortic valve [...] mg, Rectal, 1-Time, PRN: Constipation Flonase: 1 Bouse, Nostrils Both, BID Florastor: 250 mg, Oral, [...] intl units oral capsule: 1 Cap, Oral, C3Ybmhr, 0 Refill(s) Dilaudid: pain pump, 0 Refill(s) Flax Seed Oil: 1,200 mg, Oral, BID, 0 Refill(s) Flonase: 1 Bouse, Nostrils Both, BID Lunesta: 3 mg, Oral, [...] azelastine 205.5 mcg/inh (0.15%) nasal spray: 2 Bouse, Nasal, BID, PRN: for allergy symptoms, 0 [...] azelastine 205.5 mcg/inh (0.15%) nasal spray 2 Bouse, PRN, Nasal, BID biotin 5 mg, Oral, [...] 50,000 Int Units = 1 Cap, Oral, D0Phnzd Dilaudid donepezil 23 mg, Oral, Daily famotidine 40 mg, Oral, BID Flax Seed Oil 1,200 mg, Oral, BID Flonase 1 Bouse, Nostrils Both, BID gabapentin 100 mg oral [...] Oral, QAM fluticasone 0.05% nasal spray 1 Bouse, Nostrils Both, BID gabapentin 100 mg cap [...] 24 hrs) Last Charted Minimum Maximum Temp 97.5 (JUL 26 05:13) 97.5 (JUL 26 05:13) 98.8 (JUL 25 17:10) Apical HR 62 (JUL 26 08:06) 62 (JUL 26 08:06) 73 (JUL 25 21:10) Mon HR 67 (JUL 26 07:47) 58 (JUL 26 05:13) 78 (JUL 25 21:12) Resp Rate 18 (JUL 26 07:47) 16 (JUL 25 13:51) 20 (JUL 26 02:20) SBP H 155 (JUL 26 08:06) 135 (JUL 25 13:51) H 165 (JUL 25 17:10) DBP L 59 (JUL 26 08:06) L 59 (JUL 26 08:06) 84 (JUL 25 17:10) MAP 91 (JUL 26 05:13) 81 (JUL 25 18:32) 105 (JUL 25 17:10) SpO2 98 (JUL 26 07:47) 95 (JUL 25 17:10) 100 (JUL 26 02:20) Physical Examination VS/Measurements Vitals Signs (last 24 hrs) Last Charted Minimum Maximum Temp 97.5 (JUL 26:13) 97.5 (JUL 26 05:13) 98.8 (JUL 25 17:10) Apical HR 62 (JUL 26 08:06) 62 (JUL 26 08:06) 73 (JUL 25 21:10) Mon HR 67 (JUL 26 07:47) 58 (JUL 26 05:13) 78 (JUL 25 21:12) Resp Rate 18 (JUL 26 07:47) 16 (JUL 25 13:51) 20 (JUL 26 02:20) SBP H 155 (JUL 26 08:06) 135 (JUL 25 13:51) H 165 (JUL 25 17:10) DBP L 59 (JUL 26 08:06) L 59 (JUL 26 08:06) 84 (JUL 25 17:10) MAP 91 (JUL 26 05:13) 81 (JUL 25 18:32) 105 (JUL 25 17:10) SpO2 98 (JUL 26 07:47) 95 (JUL 25 17:10) 100 (JUL 26 02:20) General: Alert and oriented, Mild distress, Obese, [...] review: Labs (Last four charted values) WBC 4.5 (JUL 26) 5.1 (JUL 25) 5.4 (JUL 24) HB L 8.5 (JUL 26) L 8.6 (JUL 25) L 8.4 (JUL 24) L 9.5 (JUL 23) HCT L 26.9 (JUL 26) L 27.3 (JUL 25) L 27.2 (JUL 24) L 30.5 (JUL 23) Plt L 152 (JUL 26) L 127 (JUL 25) L 117 (JUL 24) Na H 147 (JUL 26) H 148 (JUL 25) 146 (JUL 24) 145 (JUL 23) K 4.2 (JUL 26) 4.5 (JUL 25) 4.2 (JUL 24) 4.8 (JUL 23) Cl H 113 (JUL 26) H 115 (JUL 25) H 115 (JUL 24) H 113 (JUL 23) CO2 29 (JUL 26) 28 (JUL 25) 29 (JUL 24) 30 (JUL 23) BUN 9 (JUL 26) 10 (JUL 25) 13 (JUL 24) 13 (JUL 23) Cr 0.96 (JUL 26) 0.92 (JUL 25) 1.00 (JUL 24) 0.99 (JUL 23) Glu R 97 (JUL 26) 93 (JUL 25) 104 (JUL 24) H 134 (JUL 23) Ca 9.0 (JUL 26) 8.9 (JUL 25) 8.7 (JUL 24) 8.5 [...] is obese and debilitated, her , nurse, machine adjuster leader case trim THE bedside. The really voiced some interest [...] the afternoon. The patient's nurse and her machine adjuster leader case trim who saw her yesterday at the bedside and we'll concur that she would benefit from short-term care home facility placement given her right hip replacement. [...] 8.5, creatinine screw 0.9. PATIENT, her , machine adjuster leader case trim. She was turned down by the [facility] because she's on some expensive medications including [...] but more affordable for the rehabilitation facility. [employer] dictation system used. Computer program makes numerous spelling grammar mistakes. If you have any questions or concerns do not hesitate call Dr. Travis Lux at cell phone number [phone]. documented in this encounter Plan of Treatment Not on file documented as of this encounter Visit Diagnoses Not on filedocumented in this encounter
--- OUTSIDE RECORDS SUMMARY | 2025-01-23 08:36 | XMS_ITS | Encounter Summary ---
Author Organization [employer] Address [address] [place] [address] Care Team Providers Care Bank Analyst Name Role Phone Unavailable Primary Care Provider Unavailabl e Encounter Details Date Type Department Care Team (Late st Contact Info) Description 07/08/2019 Transcribed Document [facility] Family Medicine [facility] [place] [address] ProviderSonia MD [address] [place] [id number] Social History Tobacco Use Types Packs/Day Years Used Date Smoking Tobacco: Never Assessed Comments Unknown Sex and Gender Information Value Date Recorded Sex Assigned at Not on file Legal Sex Female 1:42 PM CDT Gender Identity Not on file Sexual Orientation Not on file documented as of this encounter Miscellaneous Notes * Cerner Conversion Note - Sonia ProviderMD - 07/08/2019 10:11 AM PAINTER MAINTENANCE Patient: SANDIE FRANK Age: 63 Years Sex: Female : 1955 Chief Complaint Right Hip Pain Primary Care Provider LEOPOLDO TEJADA (REF)MD-[facility] History of Present Illness This patient is a pleasant 63 yo WF who presents with right hip pain. The pain has been going on for 3-4 years but has gotten progressively worse. She describes it as a sharp pain. It is now to the point that it is affecting her ADLs. She has tried NSAIDs, narcotics and injections without relief of her pain. She has not fallen. She has used a walker as an assistive device. She was seen at Dr Newton's office and evaluated and it was determined that she has severe DJD affecting the right hip. Pt was offered a Right Total Hip Arthroplasty via Anterior Approach and agreed to the procedure. Pt denies a h/o DVT/PE. No trouble with anesthesia in the past. Pt has a h/o asthma but no COPD or LUIS. Review of Systems Constitutional: Neg for fevers or chills. Eyes: Neg for blurry vision or change in vision. ENT: Neg for sore throat, ear pain, or dizziness. Cardiac: Neg for chest pain or dyspnea on exertion. Respiratory: Neg for shortness of breath. Gastrointestinal: Neg for nausea, vomiting, diarrhea, or constipation. Musculoskeletal: Pos for right hip pain. Neurologic: Neg for headaches or seizures. Psychiatric: Neg for anxiety and depression. Integumentary: Neg for rash. Vital Signs T: 36.8 ??C HR: 54(Peripheral) RR: 18 BP: 122/66 SpO2: 94% HT: 170.18 cm WT: 104.55 kg BMI: 36.1 Oxygen Settings (Last) Oxygen Therapy Mode: Room air (07/08/19 09:48:00) Physical Exam Constitutional: This is a pleasant 63 yo WF, BMI 36.1, in no acute distress. HEENT: Normocephalic, atraumatic. PEERLA. Extraocular muscles intact. Conjunctiva pink without exudate. Oropharynx pink and moist. Neck supple. No JVD. Cardiac: SI, S2. RRR. No M/R/G. Respiratory: Lungs CTA bilaterally. No wheezes, rales, or rhonchi. Abdomen: Soft, nontender, nondistended. Active bowel sounds. No visible masses. Musculoskeletal: Right Hip Flexion 80, IR 30, ER 50. Integumentary: Skin is pink, warm and dry. No rashes. Neurologic: CN II-XII grossly intact. Psychiatric: Judgment and affect appropriate. Assessment/Plan 1. Preoperative Evaluation- Pt underwent preoperative laboratory workup and diagnostic studies. This included a medical evaluation from her PCP who provided her with clearance to proceed with surgery. 2. Right Hip Pain secondary to DJD- Proceed with surgery as scheduled with Dr Newton on 07/22/2019. 3. Asthma- Nebs/Inhalers prn. 4. Seizure Disorder- Continue Lamictal. 5. Hypothyroidism- Continue Synthroid. 6. Dementia- Continue Donepazil and Memantine. 7. Hyperlipidemia- Continue Crestor. 8. Chronic Pain- I had a lengthy discussion with this patient regarding her pain medication regimen and that her pain may be difficult to control given the amount of pain medications that she is taking currently. 9. Seasonal Allergies- Continue Singulair. 10. GERD- Continue Famotidine. 11. Depression- Continue Cymbalta and Seroquel. 12. Hypertension- Continue Metoprolol. 13. Adrenal Insufficiency- I spoke with Dr Granda who recommends that the patient receive Hydrocortisone 5mg IV/hr during surgery. I have made Dr Newton aware of this and placed it on the OR schedule. He felt that there was no need for an increase in her oral Hydrocort after surgery as long as she got the IV medication during surgery. Problem List/Past Medical History Ongoing Adrenal insufficiency Aortic valve stenosis Arthritis Asthma At risk for sleep apnea B12 deficiency Cataracts, both eyes chronic hydrocort use Dementia fibromyalgia GERD Glaucoma high blood pressure high cholesterol Hypothyroidism kidney stone right kidney current and hx Osteoporosis peripheral neuropathy restless leg syndrome rheumatoid arthritis Seasonal allergies Vitamin D deficiency Historical Hypotension Procedure/Surgical History ULTRASONOGRAPHY OF HEART WITH AORTA (02/25/2018), INTRODUCTION OF VASOPRESSOR INTO PERIPH ART, PERC APPROACH (02/24/2018), INSPECTION OF LOWER INTESTINAL TRACT, ENDO (04/16/2016), 1985 partial hysterectomy, 2005 colectomy secondary to stop working, appendectomy 1969, Back surgery - multiple, bilateral knee surgeries, carpal tunnel release, cataracts removed both eyes 2008, choleycystectomy, finger index left hand 1969 fx repair, Foot Surgery, kidney stones, left wrist surgery with plate, Pain pump insertion 01/2006, right shoulder replacement. Home Medications (37) Active albuterol 2.5 mg/3 mL (0.083%) inhalation solution 2.5 mg = 3 mL, PRN, Inhalation, Q4H alendronate 70 mg, Oral, Weekly Alrex 0.2% ophthalmic suspension 1 Drop, Eyes Both, BID azelastine 205.5 mcg/inh (0.15%) nasal spray 2 Rillito, PRN, Nasal, BID biotin 5 mg, Oral, At Bedtime budesonide 0.5 mg/2 mL inhalation suspension 0.5 mg = 2 mL, Nebulized Inhalation, BID bupivacaine Crestor 20 mg oral tablet 20 [...] 50,000 Int Units = 1 Cap, Oral, [id number] Dilaudid donepezil 23 mg, Oral, Daily famotidine 40 mg, Oral, BID Flax Seed Oil 1,200 mg, Oral, BID fluticasone propionate 50 mcg, Inhalation, BID gabapentin 100 mg oral capsule 100 mg = 1 Cap, Oral, QPM hydrocortisone 10 mg oral tablet 5 mg = 0.5 Tab, Oral, BID lamoTRIgine 100 mg oral tablet 100 mg = 1 Tab, Oral, BID levothyroxine 100 mcg (0.1 mg) oral tablet 100 mcg = 1 Tab, Oral, Daily Lunesta 3 mg, Oral, At Bedtime Lunesta 3 mg oral tablet 3 mg, Oral, At Bedtime Lutein 20 mg oral capsule 20 mg = 1 Cap, Oral, QPM melatonin 10 mg oral capsule 10 mg = 1 Cap, Oral, At Bedtime memantine 5 mg oral tablet 10 mg = 2 Tab, Oral, BID metoprolol succinate 12.5 mg, Oral, Daily montelukast 10 mg oral tablet 10 mg = 1 Tab, Oral, Daily Multi Vitamin+ 1 Tab, Oral, Daily Perforomist 20 mcg/2 mL inhalation solution 20 mcg = 2 mL, Inhalation, BID Probiotic Formula oral capsule 1 Cap, Oral, Daily Restasis 0.05% ophthalmic emulsion 1 Drop, Eyes Both, Q12H SEROquel XR 300 mg oral tablet, extended release 300 mg = 1 Tab, Oral, QPM sodium bicarbonate 650 mg oral tablet 650 mg = 1 Tab, Oral, BID Ventolin HFA 90 mcg/inh inhalation aerosol 2 Puff, Inhalation, QID Vitamin C 500 mg oral tablet 500 mg = 1 Tab, Oral, Daily Vitamin D3 2,000 Int Units, Oral, Daily Allergies Lyrica (Confusion) cephalexin (Blisters, Blisters) clindamycin (mouth blisters, Blisters, Blisters~mouth blisters) codeine erythromycin (Blisters, Blisters) meropenem Social History Alcohol Alcohol Use History No. Alcohol Use History No. Nutrition/Health Caffeine intake amount: tea , soft drinks , 2 daily. Substance Abuse Drug Use Hx: No. Drug Use Hx: No. Use in Last 12 Months: No. Tobacco Never (less than 100 in lifetime) Smoking Status. Never Smokeless Tobacco Status. Smoking Status Never smoker. Family History Pt mother from Bone Cancer at 89. Pt father from COPD at 62. Diagnostic Results EKG- Sinus Fernando, 51 CXR- NAD Lab Results WBCs- 4.8 Hbg- 11.9 Hct- 35.9 Plts- 204 Glucose- 87 Na- 142 K- 4.0 BUN- 14 Cr- 1.1 GFR- 53 Albumin- 4.2 Prealbumin- 24 Hbg A1C- 5.5 PT- 9.9 INR- 1.1 PTT- 29.2 UA is neg for nitrites and LE documented in this encounter Plan of Treatment Not on file documented as of this encounter Visit Diagnoses Not on filedocumented in this encounter
--- OUTSIDE RECORDS SUMMARY | 2025-01-23 08:36 | XMS_ITS | Encounter Summary ---
Author Organization [employer] Address [address] [place] [address] Care Team Providers Care Railroad Signal Technician Name Role Phone Unavailable Primary Care Provider Unavailabl e Encounter Details Date Type Department Care Team (Late st Contact Info) Description 08/02/2019 Transcribed Document [facility] [place] Family Medicine [facility] [place] [address] ProviderSonia MD [address] [place], [place] [id number] Social History Tobacco Use Types Packs/Day Years Used Date Smoking Tobacco: Never Assessed Comments Unknown Sex and Gender Information Value Date Recorded Sex Assigned at Not on file Legal Sex Female 1:42 PM CDT Gender Identity Not on file Sexual Orientation Not on file documented as of this encounter Miscellaneous Notes * Cerner Conversion Note - Historical ProviderMD - 08/02/2019 11:31 AM PLAYGROUND WORKER Discharge Summary, OT Entered On: 08/02/2019 11:32 EST Performed On: 08/02/2019 11:31 EST by CAM KELLY OTR/L Discharge Summary, OT Reason for Discharge : Discharged from hospital CAM KELLY OTR/L - 08/02/2019 11:31 EST Discharge Summary Comment, OT : per case mgt pt has been approved to discharge to [facility] today for further rehab from which she will benefit from continued OT, remaining goals not met per eval however progressing daily toward goals and motivated CAM KELLY OTR/L - 08/02/2019 11:32 EST documented in this encounter Plan of Treatment Not on file documented as of this encounter Visit Diagnoses Not on filedocumented in this encounter
--- OUTSIDE RECORDS SUMMARY | 2025-01-23 08:36 | XMS_ITS | Encounter Summary ---
Author Organization [employer] Address [address] [place] [address] Care Team Providers Care Coat Feller Name Role Phone Unavailable Primary Care Provider Unavailabl e Encounter Details Date Type Department Care Team (Late st Contact Info) Description 07/22/2019 Transcribed Document [facility] [place] [facility] [place] [address] ProviderSonia MD [address] [place] [address] [phone] Social History Tobacco Use Types Packs/Day Years Used Date Smoking Tobacco: Never Assessed Comments Unknown Sex and Gender Information Value Date Recorded Sex Assigned at Not on file Legal Sex Female 1:42 PM CDT Gender Identity Not on file Sexual Orientation Not on file documented as of this encounter Miscellaneous Notes * Cerner Conversion Note - Historical ProviderMD - 07/22/2019 1:36 PM 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 Villar. Primary Care Provider LEOPOLDO TEJADA ([facility] History of Present Illness Mrs. Frank is a pleasant 63 yo WF who presents s/p Right Total Hip Arthroplasty by Dr. Villar. Initially she presented to Dr. Villar's office with right hip pain. The pain had been going on for 3-4 years but had gotten progressively worse. She describes it as a sharp pain, which started affecting her ADLs. She has tried NSAIDs, narcotics and injections without relief of her pain. She has not fallen. She has used a walker as an assistive device. She was seen at Dr Villar's office and evaluated and it was determined that she has severe DJD affecting the right hip. Pt was offered a Right Total Hip Arthroplasty via Anterior Approach and agreed to the procedure to be performed 07/22/2019. Pt denies a h/o DVT/PE. No trouble with anesthesia in the past. Pt has a h/o asthma but no COPD or LUIS. She tolerated the procedure well and was still confused from anesthesia at time of evaluation. Per family she is oriented to person and place, but not year at baseline. She was oriented 1/3 at time of evaluation. Her pain is controlled, but she has not urinated or passed flatus yet. Review of Systems Constitutional: [No fevers, chills, sweats] Eye: [No eye discharge, redness] HEENT: [No nasal congestion, + sore throat] Respiratory: [No shortness of breath, + mild chronic cough, no sputum production] Cardiovascular: [No Chest pain, palpitations] Gastrointestinal: [No nausea, vomiting, diarrhea, constipation] Genitourinary: [No hematuria, dysuria] Jose/Lymph: [Negative for bruising tendency, history of anticoagulation] Endocrine: [No DM, +hypothyroidism] Musculoskeletal: [+chronic pain] Integumentary: [No rash, pruritus, abrasions] Neurologic: [+weakness, +chronic peripheral neuropathy, +dizziness, +chronic resting tremor] Psychiatric: [No anxiety, depression, mood changes] Vital Signs T: 36.7 ??C TMIN: 36.2 ??C TMAX: 36.9 ??C HR: 82(Monitored) RR: 16 BP: 125/86 SpO2: 98% HT: 170.18 cm WT: 104.55 kg BMI: 36.1 Oxygen Settings (Last) Oxygen Therapy Mode: Nasal cannula (07/22/19 11:57:00) Oxygen Flow Rate: 3 Liter/Min (07/22/19 11:57:00) Physical Exam General: [Alert and oriented, resting tremor, well nourished, no acute distress]. Neurologic: [Awake, alert, and oriented 1/3 which is close to her baseline]. Eye: [Normal conjunctiva]. HENT: [Normocephalic, normal hearing, moist oral mucosa, no scleral icterus]. Neck: [Supple, no JVD]. Lungs: [Clear to auscultation, non-labored respiration on 3L O2]. Heart: [Normal rate, regular rhythm, no murmur, or edema]. Abdomen: [Soft, non-tender, non-distended, hypomotile bowel sounds]. Musculoskeletal: [Patient laying in bed without ROM tested]. Skin: [Skin is warm, dry and pink, no rashes]. Psychiatric: [Cooperative, appropriate mood and affect]. Assessment/Plan S/p Right Total Hip Arthroplasty by Dr. Villar -Pain control prn -Encourage incentive spirometry -PT/OT to evaluate and treat -DVT ppx per Dr. Villar. Educated patient on signs and symptoms of DVT/PE and to seek care if they develop. They voiced understanding. Acute hypoxic respiratory failure -Plan to wean off O2 as she is currently on 3L, keep continuous O2 monitoring -Consider CXR if [...] patient's current regimen -Pain control per Dr. Villar Seasonal Allergies - Continue Singulair. GERD - Continue Famotidine. Depression - Continue Cymbalta and Seroquel. Hypertension - Continue Metoprolol with parameters Adrenal Insufficiency -Dr. Duval who recommended she receive Hydrocortisone 5mg IV/hr during surgery. -Patient received 100 IV Solu-Medrol intraoperatively -Per pre-op H&P Dr. Villar is aware and, He felt that there was no need for an increase in her oral Hydrocort after surgery as long as she got the IV medication during surgery. -Resume home hydrocortisone 5 mg BID starting tomorrow morning -BP is stable, continue to monitor Resting tremor -Followed by Neurologist at DVT ppx per Dr. Villar team: Aspirin 81 mg tabs, 1 BID for 45 days GI ppx: protonix Full code DISPO: Expect patient to need SNF stay at discharge due to hx of going to [facility] after her last elective orthopedic shoulder surgery. Time spent: 48 minutes. Maggi Eric PA-C, personally evaluated the patient. Patient discussed with Dr. Ramsussen who also saw the patient and agrees with the plan of care above. VTE Prophylaxis - Medical Sequential Compression Device Start: 07/22/19 11:20:00 EST, Bilateral, Length: Knee High, Continuous Order (PEE VILLAR) Problem List/Past Medical History Ongoing Adrenal insufficiency [...] Seasonal allergies uses Renexa Vitamin D deficiency Historical Hypotension Procedure/Surgical History ULTRASONOGRAPHY OF HEART WITH AORTA (02/25/2018), INTRODUCTION OF VASOPRESSOR INTO PERIPH ART, PERC APPROACH (02/24/2018), INSPECTION OF LOWER INTESTINAL TRACT, ENDO (04/16/2016), 1984 partial hysterectomy, 2005 colectomy secondary to stop working, appendectomy 1969, Back surgery - multiple, bilateral knee surgeries, carpal tunnel release, cataracts removed both eyes 2008, choleycystectomy, finger index left hand 1969 fx repair, Foot Surgery, kidney stones, left wrist surgery with plate, Pain pump insertion 01/2006, right shoulder replacement. SN - Proc - Procedure: Hip Total Anterior Approach (07/22/19 09:30:50) Home Medications (37) Active albuterol 2.5 mg/3 mL (0.083%) inhalation solution 2.5 mg = 3 mL, PRN, Inhalation, Q4H alendronate 70 mg, Oral, Weekly Alrex 0.2% ophthalmic suspension 1 Drop, Eyes Both, BID azelastine 205.5 mcg/inh (0.15%) nasal spray 2 Bledsoe, PRN, Nasal, BID biotin 5 mg, Oral, [...] 50,000 Int Units = 1 Cap, Oral, [id number] Dilaudid donepezil 23 mg, Oral, Daily famotidine [...] father from COPD at 62. Diagnostic Results No Radiology Results Found. Lab Results Test Name Test Result Date/Time ABO/Rh A POS 07/22/2019 06:17 EST ABO/Rh Repeat A POS 07/22/2019 06:21 EST Antibody Screen (Tube) Negative ABSC 07/22/2019 06:17 EST Additional Documentation Code Status Start: 07/22/19 11:20:00 EST, Full Code, Continuous Order Electronically signed by Raman [facility] Conversion Waterproof Material Folder Cerner at 11/19/2022 8:23 PM CDT documented in this encounter Plan of Treatment Not on file documented as of this encounter Visit Diagnoses Not on filedocumented in this encounter
--- OUTSIDE RECORDS SUMMARY | 2025-01-23 08:36 | XMS_ITS | Encounter Summary ---
Author Organization [employer] Address [address] [place] [address] Care Team Providers Care Middleware Engineer Name Role Phone Unavailable Primary Care Provider Unavailabl e Encounter Details Date Type Department Care Team (Late st Contact Info) Description 07/08/2019 Transcribed Document [facility] [place] [facility] [place] [address] ProviderSonia MD [address] [place] [address] [phone] Social History Tobacco Use Types Packs/Day Years Used Date Smoking Tobacco: Never Assessed Comments Unknown Sex and Gender Information Value Date Recorded Sex Assigned at Not on file Legal Sex Female 1:42 PM CDT Gender Identity Not on file Sexual Orientation Not on file documented as of this encounter Miscellaneous Notes * Cerner Conversion Note - Historical ProviderMD - 07/08/2019 9:48 AM SUBASSEMBLY SUPERVISOR PAT Adult Entered On: 07/08/2019 9:55 EST Performed On: 07/08/2019 9:48 EST by BHAVANI MCCORMICK RN Vital Measurements Temperature Source : Temporal artery scanning Temperature Mode : Fahrenheit Temperature, Fahrenheit : 98.2 Deg F Clinical Temperature, C : 36.8 Deg C Peripheral Pulse Rate : 54 bpm (LOW) Respiratory Rate : 18 Breaths/Min Systolic Blood Pressure : 122 mmHg Diastolic Blood Pressure : 66 mmHg Oxygen Saturation : 94 % Oxygen Therapy Mode : Room air BHAVANI MCCORMICK, RN - 07/08/2019 10:18 EST Height and Weight, Clinical Dosing Height Source : Stated Height Entry Format : [place] Height, Feet : 5 ft(Converted to: 152 cm, 60 Inch) Height, Inches : 7 Inch(Converted to: 0 ft 7 Inch, 17.78 cm) Clinical Height : 170.18 cm Weight Source : Standing scale Weight Entry Format : [place] Clinical Dosing Weight : 104.55 kg Weight, Pounds : 230 lb Body Surface Area (BSA) : 2.15 m2 Body Mass Index : 36.1 kg/m2 (HI) [place] Body Weight : 61 kg BHAVANI MCCORMICK RN - 07/08/2019 9:48 EST Health Histories Smoking Status : Never (less than 100 in lifetime; none in last 30 days) Smokeless Tobacco Status : Never BHAVANI MCCORMICK RN - 07/08/2019 9:48 EST Social History (As Of: 07/08/2019 09:55:25 EST) Tobacco: Smoking Status Never smoker. (Last Updated: 11/13/2014 11:28:17 EDT by NOELLE LYNCH RN) Never (less than 100 in lifetime) Smoking Status. Never Smokeless Tobacco Status. (Last Updated: 07/08/2019 09:38:28 EST by BHAVANI MCCORMICK RN) Alcohol: Alcohol Use History No. (Last Updated: 11/13/2014 11:27:43 EDT by NOELLE LYNCH RN) Alcohol Use History No. (Last Updated: 07/08/2019 09:38:28 EST by BHAVANI MCCORMICK RN) Substance Abuse: Drug Use Hx: No. Use in Last 12 Months: No. (Last Updated: 11/13/2014 11:28:11 EDT by NOELLE LYNCH RN) Drug Use Hx: No. (Last Updated: 07/08/2019 09:38:28 EST by BHAVANI MCCORMICK RN) Nutrition/Health: Caffeine intake amount: tea , soft drinks , 2 daily. (Last Updated: 11/13/2014 11:28:07 EDT by NOELLE LYNCH RN) Infectious Disease History Infectious Disease History : Chicken pox/Shingles, Influenza, Measles, Mumps Fever/Chills Last 48 Hours : No Travel To Regions with Travel Advisories : No Travel Outside [place] Within Last 30 Days : No Contact With Traveler to Advisory Region : No Tuberculosis Symptoms : None BHAVANI MCCORMICK RN - 07/08/2019 9:48 EST Anesthesia/Transfusion History Family History of Anesthesia Reaction : Prior transfusion without reaction Transfusion History : Prior anesthesia reaction Type of Anesthesia Reaction : Excessive nausea/vomiting, Other: last surgery .. couldn't sit up or stand up Balance was off Family History of Anesthesia Reaction : None BHAVANI MCCORMICK RN - 07/08/2019 9:48 EST Functional Assessment Functional ADL Evaluation Index EBN Bathing : Independent (2) Dressing : Independent (2) Toileting : Independent (2) Transferring Bed or Chair : Independent (2) Continence : Independent (2) Feeding : Independent (2) BHAVANI MCCORMICK RN - 07/08/2019 9:48 EST ADL Index Score : 12 BHAVANI MCCORMICK RN - 07/08/2019 9:48 EST Advance Directive Patient has Advance Directive *Q : Yes, Advance Directive not with the patient Advance Directive Type : Living will Copy Advance Directive Verified/on Chart : No BHAVANI MCCORMICK RN - 07/08/2019 9:48 EST [place] Suicide Severity Rating Scale (C-SSRS) CSSRS Past Month Wish to be : No CSSRS Past Month Suicidal Thoughts : No CSSRS Lifetime Suicide Behavior : No Suicide Severity Rating Score : 0 Suicide Severity Rating : No Additional Care Required at this time BHAVANI MCCORMICK RN - 07/08/2019 9:48 EST Psychosocial History Chronic/Terminal Illness w/Freq Visits : Yes Do You Have a History of the Following? : Anxiety, Depression Currently in Unsafe Situation : No BHAVANI MCCORMICK RN - 07/08/2019 9:48 EST Teaching/Learning Assessment Barriers To Learning : None evident Individuals Taught : Patient Readiness to Learn : Cooperative Readiness to Learn : Explanation, Printed materials BHAVANI MCCORMICK RN - 07/08/2019 9:48 EST Education Topics, Periop Preadmission Perioperative Education Grid Arrival Time/Place : Verbalizes understanding CHG Preoperative Bathing/Cloths : Verbalizes understanding Infection Control : Verbalizes understanding NPO Status/Directions : Verbalizes understanding Preprocedure Preparations : Verbalizes understanding Preprocedure Tests/Labs : Verbalizes understanding Remove Body Piercings : Verbalizes understanding Responsible Adult : Verbalizes understanding Take/Hold Medications Pre-Procedure : Verbalizes understanding BHAVANI MCCORMICK RN - 07/08/2019 9:48 EST General Info Preferred Name : Sandie Legal Guardian : No Support Person/Patient Pedorthist : Yes Support Person/Pt Rep Name : spouse Jose Frank Contact Password : [email or web address] Support Person/Pt Rep Contact Information : [phone] Want Family/Rep/Phys Notified of Admit : No Emergency Contact #1 : Jose Emergency Contact #1 Emergency Contact #1 Relationship : spouse Emergency Contact #2 : - Emergency Contact #2 Phone Number : - Emergency Contact #2 Relationship : - Primary Language : Icelandic Preferred Communication Mode : Verbal Communication Barrier : None BHAVANI MCCORMICK RN - 07/08/2019 9:48 EST Joel Scale Joel Sensory Perception : No impairment Joel Moisture : Rarely moist Joel Activity : Walks frequently Joel Mobility : No limitation Joel Nutrition : Adequate Joel Friction and Shear : No apparent problem Joel Score : 22 BHAVANI MCCORMICK RN - 07/08/2019 9:48 EST Sleep Apnea Risk Assmt Hx of Obstructive Sleep Apnea Diagnosis : No Snore Loudly : Yes Tired, Fatigued, or Sleepy During Day : No Observed Stopping Breathing During Sleep : No Have/Are Being Treated for Hypertension : Yes BMI Greater Than 35 kg/m2 : Yes Age over 50 Years Old : Yes Neck Circumference Greater Than 40 cm : No Gender Male : No STOP-BANG Sleep Apnea Risk Level Score : 4 BHAVANI MCCORMICK RN - 07/08/2019 9:48 EST Electronically signed by Ivelisse Camargo Conversion Ultrasonic Welding Machine Operator Cerner at 11/19/2022 8:41 PM CDT documented in this encounter Plan of Treatment Not on file documented as of this encounter Visit Diagnoses Not on filedocumented in this encounter
--- OUTSIDE RECORDS SUMMARY | 2025-01-23 08:36 | XMS_ITS | Encounter Summary ---
Author Organization [employer] Address [address] [place] [address] Care Team Providers Care Graduate Recruiter Name Role Phone Unavailable Primary Care Provider Unavailabl e Encounter Details Date Type Department Care Team (Late st Contact Info) Description 08/01/2019 Transcribed Document [facility] [place] [facility] [place] [address] ProviderSonia MD [address] [place] [address] [phone] Social History Tobacco Use Types Packs/Day Years Used Date Smoking Tobacco: Never Assessed Comments Unknown Sex and Gender Information Value Date Recorded Sex Assigned at Not on file Legal Sex Female 1:42 PM CDT Gender Identity Not on file Sexual Orientation Not on file documented as of this encounter Miscellaneous Notes * Cerner Conversion Note - Historical ProviderMD - 08/01/2019 2:00 PM 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 Pain Assessment Entered On: 08/01/2019 15:47 EST Performed On: 08/01/2019 14:08 EST by Maryann Cam RN Intervention Information: acetaminophen Performed by Maryann Cam RN on 08/01/2019 13:08:00 EST acetaminophen,1000mg Oral Pain Assessment Pain Assessment : Follow-up assessment Pain Scale Goal : 5 Pain Scale Used : 0-10 Scale Pain Improved by Intervention : Yes Maryann Cam RN - 08/01/2019 15:46 EST Pain Scale Intensity : 0 Maryann Cam RN - 08/01/2019 15:46 EST Image 4 - Images currently included in the form version of this document have not been included in the text rendition version of the form. documented in this encounter Plan of Treatment Not on file documented as of this encounter Visit Diagnoses Not on filedocumented in this encounter
--- OUTSIDE RECORDS SUMMARY | 2025-01-23 08:36 | XMS_ITS | Encounter Summary ---
Author Organization [employer] Address [address] [place] [id number] Care Team Providers Care Sample Carrier Name Role Phone Unavailable Primary Care Provider Unavailabl e Encounter Details Date Type Department Care Team (Late st Contact Info) Description 07/26/2019 Transcribed Document [facility] [place] [facility] [place] [address] ProviderSonia MD [address] [place], [place] [phone] Social History Tobacco Use Types Packs/Day Years Used Date Smoking Tobacco: Never Assessed Comments Unknown Sex and Gender Information Value Date Recorded Sex Assigned at Not on file Legal Sex Female 1:42 PM CDT Gender Identity Not on file Sexual Orientation Not on file documented as of this encounter Miscellaneous Notes * Cerner Conversion Note - Historical ProviderMD - 07/26/2019 2:00 AM 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
--- OUTSIDE RECORDS SUMMARY | 2025-01-23 08:36 | XMS_ITS | Encounter Summary ---
Author Organization [employer] Address [address] [place] [address] Care Team Providers Care Motorcoach Operator Name Role Phone Unavailable Primary Care Provider Unavailabl e Encounter Details Date Type Department Care Team (Late st Contact Info) Description 07/22/2019 Transcribed Document [facility] [place] [facility] [place] [address] ProviderSonia MD [address] [place] [address] [phone] Social History Tobacco Use Types Packs/Day Years Used Date Smoking Tobacco: Never Assessed Comments Unknown Sex and Gender Information Value Date Recorded Sex Assigned at Not on file Legal Sex Female 1:42 PM CDT Gender Identity Not on file Sexual Orientation Not on file documented as of this encounter Miscellaneous Notes * Cerner Conversion Note - Historical ProviderMD - 07/22/2019 11:20 AM 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 documented in this encounter Plan of Treatment Not on file documented as of this encounter Visit Diagnoses Not on filedocumented in this encounter
--- OUTSIDE RECORDS SUMMARY | 2025-01-23 08:36 | XMS_ITS | Encounter Summary ---
Author Organization [employer] Address [address] [place] [address] Care Team Providers Care Bank Consultant Name Role Phone Unavailable Primary Care Provider Unavailabl e Encounter Details Date Type Department Care Team (Late st Contact Info) Description 07/22/2019 Transcribed Document [facility] [place] [facility] [place] [address] ProviderSonia MD [address], [place] [id number] Social History Tobacco Use Types Packs/Day Years Used Date Smoking Tobacco: Never Assessed Comments Unknown Sex and Gender Information Value Date Recorded Sex Assigned at Not on file Legal Sex Female 1:42 PM CDT Gender Identity Not on file Sexual Orientation Not on file documented as of this encounter Miscellaneous Notes * Cerner Conversion Note - Historical ProviderMD - 07/22/2019 11:20 AM STORE CLERK Evaluation, Physical Therapy Entered On: 07/22/2019 13:23 EST Performed On: 07/22/2019 12:27 EST by COOPER DEVLIN Physical Therapist General Information, PT Visit Type, PT : Initial evaluation Patient Orders : Order Date Order Ordering 07/22/2019 11:21 PT Evaluation and Treatment Ordered By: PEE VILLAR MD-ORT 07/22/2019 11:21 PT Treatment Instructions Ordered By: PEE VILLAR MD-ORT 07/22/2019 11:21 PT Treatment Instructions Ordered By: PEE VILLAR MD-ORT 07/22/2019 11:21 PT Treatment Instructions Ordered By: PEE VILLAR MD-ORT 07/22/2019 11:21 PT Treatment Instructions Ordered By: PEE VILLAR MD-ORT 07/22/2019 11:21 PT Treatment Instructions Ordered By: PEE VILLAR MD-ORT Active Diagnoses : No Qualifying Diagnoses Therapy Diagnosis, PT : aftercare following R aTHA Onset of Problem, PT : 07/22/2019 EST Admission Date : 07/22/2019 04:50 Assisted by, PT : Occupational Therapist Personal Devices : Personal Devices Dentures, upper, Dentures, lower Assistive Devices : Assistive Devices Cane Precautions in Place : Fall prevention measures, Fall prevention measures, high risk COOPER DEVLIN Physical Therapist - 07/22/2019 13:01 EST General Status Patient Received Status : Supine in bed, Bed alarm activated Treatment Start Time : 07/22/2019 12:27 EST Patient Left Status : Supine in bed, Bed alarm activated, RN/PCT informed, Family/Visitors at bedside, Communication board completed, All needs met and within reach, Other: SCDs RN/PCT Informed Comment : RN and pt agreeable Treatment End Time : 07/22/2019 12:49 EST Treatment Time : 22 Minute(s) COOPER DEVLIN Physical Therapist - 07/22/2019 13:01 EST History and Environment Living Situation, Therapy : Home Patient Lives With : Spouse Persons Assisting Patient at Home : Child/Children, Spouse (Comment: lives close [COOPER DEVLIN Physical Therapist - 07/22/2019 13:01 EST] ) Professional Skilled Services : None Persons Providing Information : Patient, Child/Children, Spouse Home Equipment Therapy, PT : Cane, Commode, Shower Equipment, Wheelchair (Comment: manual WC, RWx, cane, elevated commode, walk in shower with seat [COOPER DEVLIN Physical Therapist - 07/22/2019 13:01 EST] ) Home Setup : One story Stairs : Yes Stair Location(s) : Outside Outside Stairs, Number of Steps : 1 Outside Stairs Comment : platform step into doorway COOPER DEVLIN Physical Therapist - 07/22/2019 13:01 EST Prior Level of Function PT GRID Prior LOF Ambulation, Household : Assist needed Prior LOF Ambulation, Community : Assist needed Prior LOF Bed Mobility : Assist needed Prior LOF Toileting : Assist needed Prior LOF Transfer : Assist needed COOPER DEVLIN Physical Therapist - 07/22/2019 13:01 EST Prior LOF Assist with ADL Comment : SBA amb with cane/RWx with supervision A with shower transfers, supervision to shower SUA to dress COOPER DEVLIN Physical Therapist - 07/22/2019 13:01 EST Upper Extremity Upper Extremity Dominance : Right Right UE Active ROM : WFL Right UE Strength : WFL Left UE Active ROM : WFL Left UE Strength : WFL COOPER DEVLIN, Physical Therapist - 07/22/2019 13:01 EST Lower Extremity RLE Active ROM : Impaired Right LE Strength : Impaired LLE Active ROM : WFL Left LE Strength : WFL COOPER DEVLIN, Physical Therapist - 07/22/2019 13:01 EST Functional Mobility Mobility Grid Bed Scooting : Rehab Total assistance (Comment: x2 [COOPER DEVLIN Physical Therapist - 07/22/2019 13:01 EST] ) Supine to Sit : Rehab Maximal assistance (Comment: x2 [COOPER DEVLIN Physical Therapist - 07/22/2019 13:01 EST] ) Sit to Supine : Rehab Maximal assistance (Comment: x2 [COOPER DEVLIN Physical Therapist - 07/22/2019 13:01 EST] ) COOPER DEVLIN Physical Therapist - 07/22/2019 13:01 EST Functional MobilityComment : pt mod/max A to EOB, very unsteady. Requires maxAx2 to maintain EOB. Sat EOB briefly, unsafe to stay due to severe LOB in multiple and varying directions. Not safe to attempt standing or remain EOB, MaxA / Dep to supine. Dep to scoot. RN notified. Family states this is normal for pt after surgery. COOPER DEVLIN Physical Therapist - 07/22/2019 13:01 EST Gait Training/Assessment, PT Weight Bearing Order Status : WBAT Gait Assistance Level : Unable to assess/activity not appropriate Walking Distance : 0- not safe to attempt at eval COOPER DEVLIN Physical Therapist - 07/22/2019 13:01 EST Neuromuscular Reeducation, PT Balance Comment : Max A x2 for static sitting balance COOPER DEVLIN Physical Therapist - 07/22/2019 13:01 EST Neurological/Sensory Overall Sensory Response : Intact Response to Pain : Intact Neuro/Sensory Interventions Comment : B ankle DF WFL COOPER DEVLIN Physical Therapist - 07/22/2019 13:01 EST Cognition Assessment, PT Orientation : Not oriented to place, Not oriented to situation Cognition Assessment Comment : pt responds to name, unable to assess remainder, very drowsy post op status Attention Assessment : Present, Other: drowsy COOPER DEVLIN Physical Therapist - 07/22/2019 13:01 EST Edu Topics Physical Therapy Education Grid Balance Training : Needs further teaching Bed Mobility Training : Needs further teaching Positioning : Needs further teaching Safety : Needs further teaching Transfer Training : Needs further teaching COOPER DEVLIN Physical Therapist - 07/22/2019 13:01 EST Indication Assesessment, PT Physical Therapy Indicated : Yes PT Problem List : Impaired, activities daily living, Impaired, bed mobility, Impaired, endurance tolerance, Impaired, gait, Impaired, perception, Impaired, sitting balance, Impaired, stair mobility, Impaired, standing balance, Impaired, strength, Impaired, transfers Potential Barriers To Therapy : Other: response to anesthesia, family reports sometimes takes 2-3 days to return to baseline Rehabilitation Potential : Fair COOPER DEVLIN Physical Therapist - 07/22/2019 13:01 EST Plan of Care, PT PT Tx Plan/Goals Established w Patient : Yes PT Frequency Rehab : Daily, twice (bid) PT Duration Rehab : Seven Days PT Treatments Planned : Balance training, Bed mobility training, Caregiver training, Gait training, Manual therapy, Pain management, Safety education, Stair training, Therapeutic exercises, Transfer training, Wound care Plan of Care Comment, PT : skilled PT intervention is indicated in acute care setting per above. Pt likely to be a good candidate for rehab at [facility] COOPER DEVLIN Physical Therapist - 07/22/2019 13:01 EST Alf Goals Other PT LTG Grid Goal #1 Goal #2 Goal #3 Goal #4 Other : Pt will participate in therapeutic exercise training and be issued a written HEP in order to increase strength for improved gait and provide carryover into the home environment. Pt will transfer sup/sit and sit/stand with RWx and no more than Ankita to increase safety for mobility at [facility] Pt will amb at leats 25 feet with RWx and no more than Ankita without LOB or safety concerns to faciilitate household vs facility mobiity including bathroom useage. Pt will ascend/descend 1 platform step with RWx and no more than modAx1 without LOB or safety concerns to safely access home at acute care DC, or verbalize understaning for step/curb navigation if DC to rehab setting. Date to Meet : 07/29/2019 EST 07/29/2019 EST 07/29/2019 EST 07/29/2019 EST Goal Status : Initial goal Initial goal Initial goal Initial goal COOPER DEVLIN Physical Therapist - 07/22/2019 13:01 EST COOPER DEVLIN, Physical Therapist - 07/22/2019 13:01 COOPER COATES, Physical Therapist - 07/22/2019 13:01 COOPER COATES Physical Therapist - 07/22/2019 13:01 EST Treatment Note Subjective Comment : Pt agreeable but requires cues to keep eyes open. Family present in room and supportive, aids in history. Patient's Response to Treatment : fair Additional Objective Information : Per eval Assessment : Pt is appropriate for skilled PT intervention in the acute care setting to minimize restrictions and maximize safety and mobility for optimal functional gains postoperatively. Plan for Treatment : Cont BID COOPER DEVLIN Physical Therapist - 07/22/2019 13:01 EST Pain Assessment Pain Scaled Used : FACES Pain Score Pre-Intervention : 0 Pain Score During-Intervention : 2 Pain Score Post-Intervention. : 0 COOPER DEVLIN Physical Therapist - 07/22/2019 13:01 EST Image 1 - Images currently included in the form version of this document have not been included in the text rendition version of the form. [place] PT Charges PT Ther Activities Ea 15 Min : 1 PT Eval Low Complexity : 1 COOPER DEVLIN Physical Therapist - 07/22/2019 13:01 EST documented in this encounter Plan of Treatment Not on file documented as of this encounter Visit Diagnoses Not on filedocumented in this encounter
--- OUTSIDE RECORDS SUMMARY | 2025-01-23 08:36 | XMS_ITS | Encounter Summary ---
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 Name Role Phone Unavailable Primary Care Provider Unavailabl e Encounter Details Date Type Department Care Team (Late st Contact Info) Description 08/02/2019 Transcribed Document [facility] [place] [facility] [place] [address] ProviderSonia MD [address], [place] [phone] Social History Tobacco Use Types Packs/Day Years Used Date Smoking Tobacco: Never Assessed Comments Unknown Sex and Gender Information Value Date Recorded Sex Assigned at Not on file Legal Sex Female 1:42 PM CDT Gender Identity Not on file Sexual Orientation Not on file documented as of this encounter Miscellaneous Notes * Cerner Conversion Note - Sonia Boogie MD - 08/02/2019 10:36 AM 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 Pain and swelling. ?? A small amount of blood or clear fluid coming from your incision for up to 7 days ?? It is normal to have a moderate amount of bleeding from the site of the drain that was pulled on the morning after surgery. You can hold pressure on the area for 3-5 minutes and cover with a bandage as needed. Diet: ?? Resume usual diet ?? No alcoholic beverages while taking pain medication ?? Drink 8-10 glasses of water a day to prevent constipation from pain medication ?? Increase fiber to help prevent constipation. Straining can cause increased pressure and pain in your incision area ?? Increase protein to promote healing Driving: ?? Do not drive until your health care provider approves. Ask your health care provider when it is safe to drive if you have an immobilizer on your knee. ?? Do not drive or operate heavy machinery while taking prescription pain medicine. ?? Do not drive for 24 hours if you received a sedative. Activity: ?? Do not lift anything that is heavier than 10 lb (4.5 kg) until your health care provider approves. ?? No strenuous activity ?? Avoid high-impact activities, including running, jumping rope, and jumping jacks. ?? Avoid sitting for a long time without moving. Get up and move around at least every few hours. ?? Keep legs elevated while seated and place surgery leg on 2-3 pillows, this will decrease swelling ?? Continue using walker until cleared by physical therapy Bathing: ?? Do not take baths, swim, or use a hot tub for one month after surgery. ?? May shower on the third day after surgery by covering incision with Glad Brand Press and Seal saran wrap. After showering, dry off completely BEFORE removing saran wrap. ?? Use Press and Seal saran wrap to shower for one month after surgery ?? You must be seated to shower until you are no longer using the walker Other: ?? Use ice therapy for 20-30 minutes at a time and leave off for 20-30 minutes at a time. Always keep a towel or cloth between the ice pack and your skin ?? Continue to use Incentive Spirometer 10 times an hour while awake for one month to help prevent pneumonia Contact a health care provider if: ?? You have more redness, swelling, or pain around your incision. ?? You have more fluid or blood coming from your incision. ?? Your incision or drain site feels warm to the touch. ?? You have pus or a bad smell coming from your incision. ?? You have a fever. ?? Your incision breaks open after your health care provider removes your sutures, skin glue, or adhesive tape. ?? Your prosthesis feels loose. ?? You have knee pain that does not go away. DVT: Blood Clot Blood clots are a common risk after an orthopedic surgery Symptoms: ?? Swelling of your leg or arm, especially if one side is much worse. ?? Warmth and redness of your leg or arm, especially if one side is much worse. ?? Pain in your arm or leg. If the clot is in your leg, symptoms may be more noticeable or worse when you stand or walk. ?? A feeling of pins and needles, if the clot is in the arm. The symptoms of a DVT that has traveled to the lungs (pulmonary embolism, PE) usually start suddenly and include: ?? Shortness of breath while active or at rest. ?? Coughing or coughing up blood or blood-tinged mucus. ?? Chest pain that is often worse with deep breaths. ?? Rapid or irregular heartbeat. ?? Feeling light-headed or dizzy. ?? Fainting. ?? Feeling anxious. ?? Sweating. There may also be pain and swelling in a leg if that is where the blood clot started. How is this prevented? ?? Exercise regularly. For at least 30 minutes every day, engage in: -Activity that involves moving your arms and legs. -Activity that encourages good blood flow through your body by increasing your heart rate. ?? Exercise your arms and legs every hour during long-distance travel (over 4 hours). ?? Drink plenty of water and avoid drinking alcohol while traveling. ?? Avoid sitting or lying in bed for long periods of time without moving your legs. ?? Maintain a weight that is appropriate for your height. Ask your health care provider what weight is healthy for you. ?? If you are a woman who is over 35 years of age, avoid unnecessary use of medicines that contain estrogen. These include control pills. ?? Do not smoke, especially if you take estrogen medicines. If you need help quitting, ask your health care provider. ?? Wear compression stockings (if told by your health care provider) to help prevent blood clots from forming. High Fiber/High Protein Diet High fiber foods: To prevent constipation Grains Whole-grain breads. Multigrain cereal. Oats and oatmeal. Brown rice. Barley. Bulgur wheat. Millet. Bran muffins. Popcorn. [place] wafer crackers. Vegetables Sweet potatoes. Spinach. Kale. Artichokes. Cabbage. Broccoli. Green peas. Carrots. Squash. Fruits Berries. Pears. Apples. Oranges. Avocados. Prunes and raisins. Dried figs. Meats and Other Protein Sources [place], kidney, roland, and soy beans. Split peas. Lentils. Nuts and seeds. Dairy Fiber-fortified yogurt. Beverages Fiber-fortified soy milk. Fiber-fortified orange juice. Other Fiber bars. High-protein foods: To promote healing High-protein foods contain 4 grams (4 g) or more of protein per serving. They include: ?? Beef, ground sirloin (cooked) - 3 oz have 24 g of protein. ?? Cheese (hard) - 1 oz has 7 g of protein. ?? Chicken breast, boneless and skinless (cooked) - 3 oz have 13.4 g of protein. ?? Cottage cheese - 1/2 cup has 13.4 g of protein. ?? Egg - 1 egg has 6 g of protein. ?? Fish, filet (cooked) - 1 oz has 6-7 g of protein. ?? Garbanzo beans (canned or cooked) - 1/2 cup has 6-7 g of protein. ?? Kidney beans (canned or cooked) - 1/2 cup has 6-7 g of protein. ?? [place] (cooked) - 3 oz has 24 g of protein. ?? Milk - 1 cup (8 oz) has 8 g of protein. ?? Nuts (peanuts, pistachios, almonds) - 1 oz has 6 g of protein. ?? Peanut butter - 1 oz has 7-8 g of protein. ?? Pork tenderloin (cooked) - 3 oz has 18.4 g of protein. ?? Pumpkin seeds - 1 oz has 8.5 g of protein. ?? Soybeans (roasted) - 1 oz has 8 g of protein. ?? Soybeans (cooked) - 1/2 cup has 11 g of protein. ?? Soy milk - 1 cup (8 oz) has 5-10 g of protein. ?? Soy or vegetable lolis - 1 lolis has 11 g of protein. ?? [place] seeds - 1 oz has 5.5 g of protein. ?? Tofu (firm) - 1/2 cup has 20 g of protein. ?? Tuna (canned in water) - 3 oz has 20 g of protein. ?? Yogurt - 6 oz has 8 g of protein. Fall Prevention ?? Use night lights. ?? Install grab bars by the toilet and in the tub and shower. Do not use towel bars as grab bars. ?? Use non-skid mats or decals on the floor of the tub or shower. ?? If you need to sit down while you are in the shower, use a plastic, non-slip stool. ?? Keep the floor dry. Immediately clean up any water that spills on the floor. ?? Remove soap buildup in the tub or shower on a regular basis. ?? Remove throw rugs and other tripping hazards from the floor. ?? Place frequently used items in gdvf-ox-tpeof places ?? Keep electrical cables out of the way. ?? Do not leave any items on the stairs. ?? Make sure that there are handrails on both sides of the stairs. Fix handrails that are broken or loose. Make sure that handrails are as long as the stairways. ?? Check any carpeting to make sure that it is firmly attached to the stairs. Fix any carpet that is loose or worn. ?? Avoid having throw rugs at the top or bottom of stairways, or secure the rugs with carpet tape to prevent them from moving. ?? Wear closed-toe shoes that fit well and support your feet. Wear shoes that have rubber soles or low heels. ?? Use mobility aids as needed, such as canes, walkers, scooters, and crutches. ?? Turn on lights if it is dark. Replace any light bulbs that burn out. ?? Set up furniture so that there are clear paths. Keep the furniture in the same spot. ?? Be aware of any and all pets. ?? Review your medicines with your healthcare provider. Some medicines can cause dizziness or changes in blood pressure, which increase your risk of falling. Hand Washing You should wash your hands whenever you think they are dirty. You should also wash your hands: ??? After: ?? Working or playing outside. ?? Touching an animal or its toys or leash. ?? Handling livestock. ?? Using the bathroom. ?? Using household hookman or toxic chemicals. ?? Touching or taking out the garbage. ?? Touching anything dirty around your home. ?? Handling soiled clothes or rags. ?? Taking care of a sick child. This includes touching used tissues, toys, and clothes. ?? Sneezing, coughing, or blowing your nose. ?? Using public transportation. ?? Shaking hands. ?? Using a phone, including your mobile phone. ?? Touching money. ??? Before and after: ?? Preparing food. ?? Feeding a baby or young child. ?? Eating. ?? Visiting or taking care of someone who is sick. ?? Changing a diaper. ?? Changing a bandage (dressing) or taking care of an injury or wound. ?? Giving or taking medicine. If soap and clean water are not available, use an alcohol-based wipe, spray, or hand gel. Use a hand-sanitizing agent that contains at least 60% alcohol. If you are preparing food, hand sanitizers are not recommended as a substitute for hand washing. Walker Use To Walk With a Front-Wheeled Walker: 1. Slide your front-wheeled walker one step-length in front of you. Your toes should be farther forward than the back legs of your walker. 2. Hold on to the walker for support, and step your weaker (surgery) leg into the middle of the walker. 3. Step your stronger leg forward to land next to your weaker leg. 4. Repeat the process for each step. ?? Always keep both feet within the width of the walker's legs or wheels. ?? When using your walker, you should not feel like you need to lean forward or to the side to keep your hands on the handgrips. ?? Make sure you are following any weight-bearing instructions that your health care provider has given you. ?? Be careful not to let the walker get too far ahead of you as you walk. ?? If your walker does not glide well over carpet, consider cutting an X into two tennis balls and placing the balls over the back legs of your walker. How to use a walker on a curb or step To Use a Walker to Step Up: 1. Put all four legs of the walker on the curb or step. 2. Get your feet as close to the curb or step as you can. 3. Test the steadiness of the walker by pressing down on the handgrips. 4. If the walker is steady, press down on it with your hands as you step up with your stronger leg. 5. Step up with your weaker leg. To Use a Walker to Step Down: 1. Put all four legs of the walker on the surface that is lower than the curb or step. 2. Get your feet as close to the curb or step as you can. 3. Test the steadiness of the walker by pressing down on the handgrips. 4. If the walker is steady, press down on it with your hands as you step down with your weaker leg. 5. Step down with your stronger leg. Electronically signed by Ivelisse Camargo Conversion Delinquent Tax Collector Assistant Cerner at 11/19/2022 8:37 PM CDT documented in this encounter Plan of Treatment Not on file documented as of this encounter Visit Diagnoses Not on filedocumented in this encounter
--- OUTSIDE RECORDS SUMMARY | 2025-01-23 08:36 | XMS_ITS | Encounter Summary ---
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 Name Role Phone Unavailable Primary Care Provider Unavailabl e Encounter Details Date Type Department Care Team (Late st Contact Info) Description 07/22/2019 Transcribed Document [facility] [place] [facility] [place] [address] ProviderSonia MD [address] [place] [address] [phone] Social History Tobacco Use Types Packs/Day Years Used Date Smoking Tobacco: Never Assessed Comments Unknown Sex and Gender Information Value Date Recorded Sex Assigned at Not on file Legal Sex Female 1:42 PM CDT Gender Identity Not on file Sexual Orientation Not on file documented as of this encounter Miscellaneous Notes * Cerner Conversion Note - Historical ProviderMD - 07/22/2019 1:17 PM 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 Treatment Intervention, OT Entered On: 07/23/2019 15:49 EST Performed On: 07/23/2019 15:10 EST by ARIEL PARK OTR/Cat General Information, OT Visit Type, OT : Treatment Note Patient Orders : Order Date Order Ordering 07/22/2019 11:21 OT Evaluation and Treatment Ordered By: PEE VILLAR MD-ORT 07/22/2019 11:21 OT Treatment Instructions Ordered By: PEE VILLAR MD-ORT 07/22/2019 13:17 Occupational Therapy Additional Tx Ordered By: 07/23/2019 11:44 OT Evaluation and Treatment Ordered By: PEE VILLAR MD-ORT Active Diagnoses : No Qualifying Diagnoses Therapy Diagnosis, OT : aftercare following joint replacement surgery R ATHA Admission Date : 07/22/2019 04:50 Personal Devices : Personal Devices Dentures, upper, Dentures, lower Assistive Devices : Assistive Devices Cane Precautions in Place : Fall prevention measures ARIEL PARKSTEPHANIE/Cat - 07/23/2019 15:44 EST General Status Patient Received Status : Long sitting in bed Treatment Start Time : 07/23/2019 15:10 EST Patient Left Status : Long sitting in bed RN/PCT Informed Comment : Rn ok'ed. Client agrees to tx. Treatment End Time : 07/23/2019 15:30 EST Treatment Time : 20 Minute(s) Actual Treatment Time : 20 Minute(s) XAVIER ARIEL, OTR/Cat - 07/23/2019 15:44 EST Self Care/Home Management, OT Self Care/Home Management Comment, OT : max assist with LB self-care ARIEL PARK OTR/Cat - 07/23/2019 15:44 EST Functional Mobility Mobility Grid Supine to Sit : Rehab Minimal assistance ARIEL PARK OTR/Cat - 07/23/2019 15:44 EST Cognitive Treatment, OT Orientation : Oriented x 4 ARIEL PARK OTR/Cat - 07/23/2019 15:44 EST Plan of Care, OT OT Tx Plan/Goals Established w Patient : Yes XAVIER STEPHANIE GEORGE/Cat - 07/23/2019 15:44 EST Etl Informatica Developer Goals, OT Other LTG Grid Goal #1 Goal #2 Goal : pt to perform functional ADL transfer min assist x2 person at rw level and cues pt to perform LB ADL task mod assist using AD PRN Date to Meet : 07/29/2019 EST 07/29/2019 EST Goal Status : Initial goal Initial goal ARIEL PARK OTR/Cat - 07/23/2019 15:44 EST ARIEL PARK OTR/Cat - 07/23/2019 15:44 EST Treatment Note Subjective Comment : 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 Patient's Response to Treatment : Client with good participation but poor activity tolerance. Client sat EOB with min A x 2 for 6 minutes and experienced fatigue post session. Additional Objective Information : Client supine to sit EOB with min A. Sat EOB with min A x 2. Client leaning back, front, or sides, trying to achieve posture and maintain balance. Client exhibits difficulties with coordination, but has improved from yesterday in correcting posture. Sit to stand not attempted due to safety issues. present and agreeable to further rehab if needed. Assessment : Client progressing towards goals, slowly due to coordination and safety concerns. Client will likely d/c to inpatient rehab. ARIEL PARK OTR/Cat - 07/23/2019 15:44 EST Pain Assessment Pain Score Pre-Intervention : 5 Pain Score During-Intervention : 5 Pain Score Post-Intervention. : 5 ARIEL PARK OTR/Cat - 07/23/2019 15:44 EST Image 1 - Images currently included in the form version of this document have not been included in the text rendition version of the form. [facility] OT Charges OT Selfcare/Hm Mgmt Ea 15 Min : 1 ARIEL PARK OTR/Cat - 07/23/2019 15:44 EST Electronically signed by Raman [facility] Conversion Wellness Spa Manager Cerner at 11/21/2022 11:34 AM CDT documented in this encounter Plan of Treatment Not on file documented as of this encounter Visit Diagnoses Not on filedocumented in this encounter
--- OUTSIDE RECORDS SUMMARY | 2025-01-23 08:36 | XMS_ITS | Encounter Summary ---
Author Organization [employer] Address [address] [place] [address] Care Team Providers Care Piercer Name Role Phone Unavailable Primary Care Provider Unavailabl e Encounter Details Date Type Department Care Team (Late st Contact Info) Description 07/22/2019 Transcribed Document [facility] [place] [facility] [place] [address] ProviderSonia MD [address] [place] [address] [phone] Social History Tobacco Use Types Packs/Day Years Used Date Smoking Tobacco: Never Assessed Comments Unknown Sex and Gender Information Value Date Recorded Sex Assigned at Not on file Legal Sex Female 1:42 PM CDT Gender Identity Not on file Sexual Orientation Not on file documented as of this encounter Miscellaneous Notes * Cerner Conversion Note - Historical ProviderMD - 07/22/2019 6:29 AM SELF PROPELLED DREDGE OPERATOR Pre Procedure Adult Entered On: 07/22/2019 6:33 EST Performed On: 07/22/2019 6:29 EST by NABEEL FABIAN RN Height and Weight, Clinical Dosing Height Source : Stated Height Entry Format : [place] Height, Feet : 5 ft(Converted to: 152 cm, 60 Inch) Height, Inches : 7 Inch(Converted to: 0 ft 7 Inch, 17.78 cm) Clinical Height : 170.18 cm Weight Source : Standing scale Weight Entry Format : [place] Clinical Dosing Weight : 104.55 kg Weight, Pounds : 230 lb Body Surface Area (BSA) : 2.15 m2 Body Mass Index : 36.1 kg/m2 (HI) Tarzan Body Weight : 61 kg NABEEL FABIAN RN - 07/22/2019 6:29 EST Health Histories Smoking Status : Never (less than 100 in lifetime; none in last 30 days) Smokeless Tobacco Status : Never NABEEL FABIAN RN - 07/22/2019 6:29 EST Social History (As Of: 07/22/2019 06:33:34 EST) Tobacco: Smoking Status Never smoker. (Last [...] History : Chicken pox/Shingles, Influenza, Measles, Mumps Isolation Needed : Standard Fever/Chills Last 48 Hours : No Travel To Regions with Travel Advisories : No Travel Outside [place] Within Last 30 Days : No Contact With Traveler to Advisory Region : No Exposure to Contagious Illness : No Tuberculosis Symptoms : None NABEEL FABIAN RN - 07/22/2019 6:29 EST Anesthesia/Transfusion History Family History of Anesthesia Reaction : Prior transfusion without reaction Transfusion History : Prior anesthesia reaction Type of Anesthesia Reaction : Excessive nausea/vomiting, Other: last surgery .. couldn't sit up or stand up Balance was off Family History of Anesthesia Reaction : None NABEEL FABIAN RN - 07/22/2019 6:29 EST Functional Assessment Living Situation : Home Patient Lives With : Spouse Persons Assisting Patient at Home : Spouse Current Daily Living Assistance : None Sensory Deficits : None Mobility Assistance Prior to Admission : Partial assistance COLES Hx Falls Immediate/Within 3 Months : No Current Home Treatments : Nebulizer treatments Home Equipment : Cane, Pump, Supplies Cane : Cane, narrow based Pump : Pump, implanted Supplies : Supplies, oxygen Professional Skilled Services : None Special Services and Community Resources : None NABEEL FABIAN RN - 07/22/2019 6:51 EST Slaughter Suicide Severity Rating Scale (C-SSRS) CSSRS Past Month Wish to be : No CSSRS Past Month Suicidal Thoughts : No CSSRS Lifetime Suicide Behavior : No Suicide Severity Rating Score : 0 Suicide Severity Rating : No Additional Care Required at this time NABEEL FABIAN RN - 07/22/2019 6:36 EST Psychosocial History Chronic/Terminal Illness w/Freq Visits : Yes Do You Have a History of the Following? : Anxiety, Depression Currently in Unsafe Situation : No Do You Have a Support System? : Yes NABEEL FABIAN RN - 07/22/2019 6:36 EST Advance Directive Patient has Advance Directive *Q : Yes, Advance Directive not with the patient Advance Directive Type : Living will Copy Advance Directive Verified/on Chart : No NABEEL FABIAN RN - 07/22/2019 6:29 EST Teaching/Learning Assessment Barriers To Learning : None evident Individuals Taught : Patient, Spouse Readiness to Learn : Cooperative Baseline Knowledge of Topic : Good Readiness to Learn : Explanation, Printed materials Learning Style Preferences Patient : Printed materials, Verbal explanation Learning Style Preferences Family : Printed materials, Verbal explanation NABEEL FABIAN RN - 07/22/2019 6:51 EST Education Topics, Periop Preadmission Perioperative Education Grid Arrival Time/Place : Verbalizes understanding Falls : Verbalizes understanding IV's : Verbalizes understanding NPO Status/Directions : Verbalizes understanding Pain Management : Verbalizes understanding Preprocedure Preparations : Verbalizes understanding Preprocedure Tests/Labs : Verbalizes understanding Responsible Adult : Verbalizes understanding Take/Hold Medications Pre-Procedure : Verbalizes understanding NABEEL FABIAN RN - 07/22/2019 6:51 EST General Info Preferred Name : Sandie Patient Arrival Date/Time : 07/22/2019 5:30 EST Legal Guardian : No Support Person/Patient Shallot Cleaner : Yes Support Person/Pt Rep Name : spouse Jose Frank Contact Password : [email or web address] Support Person/Pt Rep Contact Information : [phone] Want Family/Rep/Phys Notified of Admit : No Emergency Contact #1 : Jose Emergency Contact # Emergency Contact #1 Relationship : spouse Emergency Contact #2 : - Emergency Contact #2 Phone Number : - Emergency Contact #2 Relationship : - Information Obtained From : Patient Primary Language : Kenyan Preferred Communication Mode : Verbal Communication Barrier : None Currently Lactating : No Status : Hysterectomy NABEEL FABIAN RN - 07/22/2019 6:36 EST Vital Measurements Temperature Source : Oral Temperature Mode : Fahrenheit Temperature, Fahrenheit : 98.5 Deg F Clinical Temperature, C : 36.9 Deg C Pulse Method : Pulse Oximetry Pulse Source : Radial, Left Peripheral Pulse Rate : 58 bpm (LOW) Pulse Rhythm : Regular Respiratory Rate : 16 Breaths/Min Blood Pressure Location : Arm, right upper Blood Pressure Source : Non-Invasive BP Device Blood Pressure Position : Side, Right Systolic Blood Pressure : 124 mmHg Diastolic Blood Pressure : 64 mmHg Oxygen Saturation : 94 % Oxygen Therapy Mode : Room air NABEEL FABIAN RN - 07/22/2019 6:51 EST Sleep Apnea Risk Assmt Hx of [...] Sleep Apnea Risk Level Score : 4 NABEEL FABIAN RN - 07/22/2019 6:51 EST Joel Scale Joel Sensory Perception : No impairment Joel Moisture : Rarely moist Joel Activity : Walks occasionally Joel Mobility : Slightly limited Joel Nutrition : Adequate Joel Friction and Shear : No apparent problem Joel Score : 20 NABEEL FABIAN RN - 07/22/2019 6:51 EST Oxygen Therapy Oxygen Therapy Mode : Room air NABEEL FABIAN RN - 07/22/2019 6:36 EST Pain Assessment Pain Assessment : Initial assessment Pain Scale Used : 0-10 Scale NABEEL FABIAN RN - 07/22/2019 6:36 EST Fall Risk Scales ABCs Fall Injury Risk Identification : Surgery ABC Fall Injury Risk : Moderate to high injury risk COLES Hx Falls Immediate/Within 3 Months : No Coles Secondary Diagnosis : Yes COLES Use of Ambulatory Aid : Crutches/Cane/Walker COLES IV Therapy or IV Access : Yes Coles Gait/Transferring : Normal, bedrest, immobile Coles Mental Status : Oriented to own ability Coles Fall Risk Score : 50 COLES Fall Scale Risk Level : 46 or > High Risk [place] Fall Interventions : Adequate lighting, Assistive devices within reach, Bed in low position, Call device within reach, Personal items within reach, Upper side-rails up, Wheels locked NABEEL FABIAN RN - 07/22/2019 6:51 EST Fall Risk Education Grid Assistive Equipment Use : Verbalizes understanding Call light use : Verbalizes understanding Nonskid Footwear Use : Verbalizes understanding Siderails use/risks : Verbalizes understanding NABEEL FABIAN RN - 07/22/2019 6:51 EST Barriers to Learning : None evident Individuals Taught : Patient, Spouse Readiness to Learn : Cooperative Baseline Knowledge of Topic : Good Teaching Method : Printed materials Learning Style Preferences Family : Printed materials, Verbal explanation Learning Style Preferences Patient : Printed materials, Verbal explanation Teaching Evaluation : Verbalizes understanding NABEEL FABIAN RN - 07/22/2019 6:51 EST Education Topics, Day of Surgery DayofSurgery Education Grid Anesthesia/Sedation : Verbalizes understanding Fall Risks : Verbalizes understanding Family Instructions : Verbalizes understanding IV's : Verbalizes understanding Medication Instructions : Verbalizes understanding Pain Management : Verbalizes understanding Responsible Adult : Verbalizes understanding NABEEL FABIAN RN - 07/22/2019 6:51 EST Valuables and Belongings Personal Device Disposition : With family NABEEL FABIAN RN - 07/22/2019 6:51 EST Valuables and Belongings : Clothing, Jewelry, Personal devices, Assistive devices Clothing : Common streetwear Clothing Disposition : With family Jewelry : Ring, Watch Jewelry Disposition : With family Personal Devices : Dentures, upper, Dentures, lower Assistive Devices From Home : Cane Assistive Device Disposition : With family NABEEL FABIAN RN - 07/22/2019 6:36 EST Pain Scale Intensity : 0 NABEEL FABIAN RN - 07/22/2019 6:36 EST Image 4 - Images currently included in the form version of this document have not been included in the text rendition version of the form. Roxanne Coma [place] Best Motor Response : Obey commands [place] Best Verbal Response : Oriented [place] Eye Opening Response : Spontaneous [place] Coma Score : 15 NABEEL FABIAN RN - 07/22/2019 6:29 EST Electronically signed by Raman, danya Conversion Environmental Maintenance Worker Cerner at 11/19/2022 8:27 PM CDT documented in this encounter Plan of Treatment Not on file documented as of this encounter Visit Diagnoses Not on filedocumented in this encounter
--- OUTSIDE RECORDS SUMMARY | 2025-01-23 08:36 | XMS_ITS | Encounter Summary ---
Author Organization [employer] Address [address] [place] [address] Care Team Providers Care Trucking Contractor Name Role Phone Unavailable Primary Care Provider Unavailabl e Encounter Details Date Type Department Care Team (Late st Contact Info) Description 08/01/2019 Transcribed Document [facility] [place] [facility] [place] [address] ProviderSonia MD [address] [place], [place] [id number] Social History Tobacco Use Types Packs/Day Years Used Date Smoking Tobacco: Never Assessed Comments Unknown Sex and Gender Information Value Date Recorded Sex Assigned at Not on file Legal Sex Female 1:42 PM CDT Gender Identity Not on file Sexual Orientation Not on file documented as of this encounter Miscellaneous Notes * Cerner Conversion Note - Historical ProviderMD - 08/01/2019 2:00 AM HEAD OF DIGITAL Res Counselor Details Entered On: 08/01/2019 4:01 EST Performed On: 08/01/2019 2:00 EST by Cathie Lundy RN Order Details Transport Mode Order Detail : Bed (including specialty) Isolation Precautions Order Detail : Standard Precautions Order Detail : 0 IV Order Detail : 0 Oxygen Order Detail : 0 Nurse Collect Order Detail : 0 Lift/Transfer : Moderate assist Central Line Order Detail : No Room Service : Appropriate Arterial Line : No Cathie Lundy RN - 08/01/2019 4:01 EST documented in this encounter Plan of Treatment Not on file documented as of this encounter Visit Diagnoses Not on filedocumented in this encounter
--- OUTSIDE RECORDS SUMMARY | 2025-01-23 08:36 | XMS_ITS | Encounter Summary ---
Author Organization [employer] Address [address] [place] [address] Care Team Providers Care Metal Wire Technician Name Role Phone Unavailable Primary Care Provider Unavailabl e Encounter Details Date Type Department Care Team (Late st Contact Info) Description 07/26/2019 Transcribed Document [facility] [place] [facility] [place] [address] ProviderSonia MD [address] [place] [address] [phone] Social History Tobacco Use Types Packs/Day Years Used Date Smoking Tobacco: Never Assessed Comments Unknown Sex and Gender Information Value Date Recorded Sex Assigned at Not on file Legal Sex Female 1:42 PM CDT Gender Identity Not on file Sexual Orientation Not on file documented as of this encounter Miscellaneous Notes * Cerner Conversion Note - Historical ProviderMD - 07/26/2019 10:00 PM FORGE HAND Pain Assessment Entered On: 07/27/2019 2:08 EST Performed On: 07/26/2019 21:57 EST by Barrington Roberts RN Intervention Information: acetaminophen Performed by Barrington Roberts RN on 07/26/2019 20:57:00 EST acetaminophen,1000mg Oral Pain Assessment Pain Assessment : Follow-up assessment Pain Scale Goal : 5 Pain Scale Used : 0-10 Scale Pain Intervention, Drug : Medicated Pain Improved by Intervention : Yes Barrington Roberts RN - 07/27/2019 2:08 EST Pain Scale Intensity : 3 Barrington Roberts RN - 07/27/2019 2:08 EST Image 4 - Images currently included in the form version of this document have not been included in the text rendition version of the form. documented in this encounter Plan of Treatment Not on file documented as of this encounter Visit Diagnoses Not on filedocumented in this encounter
--- OUTSIDE RECORDS SUMMARY | 2025-01-23 08:36 | XMS_ITS | Encounter Summary ---
Author Organization [employer] Address [address] [place] [address] Care Team Providers Care Director Treasurer Name Role Phone Unavailable Primary Care Provider Unavailabl e Encounter Details Date Type Department Care Team (Late st Contact Info) Description 08/02/2019 Transcribed Document [facility] [place] [facility] [address] ProviderSonia MD [address] [place] [address] [id number] Social History Tobacco Use Types Packs/Day Years Used Date Smoking Tobacco: Never Assessed Comments Unknown Sex and Gender Information Value Date Recorded Sex Assigned at Not on file Legal Sex Female 1:42 PM CDT Gender Identity Not on file Sexual Orientation Not on file documented as of this encounter Miscellaneous Notes * Cerner Conversion Note - Historical ProviderMD - 08/02/2019 6:00 AM ORNAMENTAL IRONWORKER Pain Assessment Entered On: 08/02/2019 6:53 EST Performed On: 08/02/2019 6:28 EST by Priti Davenport RN Intervention Information: acetaminophen Performed by Priti Davenport RN on 08/02/2019 05:28:00 EST acetaminophen,1000mg Oral Pain Assessment Pain Assessment : Follow-up assessment Pain Scale Goal : 5 Pain Scale Used : 0-10 Scale Pain Comment : patient sleeping Priti Davenport RN - 08/02/2019 6:53 EST Pain Scale Intensity : Alternate pain scale used Priti Davenport RN - 08/02/2019 6:53 EST Image 4 - Images currently included in the form version of this document have not been included in the text rendition version of the form. Electronically signed by Ivelisse Camargo Conversion Technical Solutions Consultant Cerner at 11/19/2022 8:30 PM CDT documented in this encounter Plan of Treatment Not on file documented as of this encounter Visit Diagnoses Not on filedocumented in this encounter
--- OUTSIDE RECORDS SUMMARY | 2025-01-23 08:36 | XMS_ITS | Encounter Summary ---
Author Organization [employer] Address [address] [place] [address] Care Team Providers Care Bus Girl Name Role Phone Unavailable Primary Care Provider Unavailabl e Encounter Details Date Type Department Care Team (Late st Contact Info) Description 07/11/2019 Transcribed Document [facility] [place] [facility] [place] [address] ProviderSonia MD [address] [place] [address] Social History Tobacco Use Types Packs/Day Years Used Date Smoking Tobacco: Never Assessed Comments Unknown Sex and Gender Information Value Date Recorded Sex Assigned at Not on file Legal Sex Female 1:42 PM CDT Gender Identity Not on file Sexual Orientation Not on file documented as of this encounter Miscellaneous Notes * Cerner Conversion Note - Historical ProviderMD - 07/11/2019 12:58 PM E COMMERCE MERCHANDISING COORDINATOR Orthopedic Nurse Navigator Entered On: 07/11/2019 12:58 EST Performed On: 07/11/2019 12:58 EST by Ana Call, Nurse manager internship Nurse Navigator Assessment Joint Navigator Assessment Note : Pt mentioned she spoke with about possible rehab. Ana Call Nurse RN - 07/11/2019 12:58 EST Electronically signed by Ivelisse Camargo Conversion Telephone Claims Representative Cerner at 11/19/2022 8:30 PM CDT documented in this encounter Plan of Treatment Not on file documented as of this encounter Visit Diagnoses Not on filedocumented in this encounter
--- OUTSIDE RECORDS SUMMARY | 2025-01-23 08:36 | XMS_ITS | Encounter Summary ---
Author Organization [employer] Address [address] [place] [address] Care Team Providers Care Shower Enclosure Installer Name Role Phone Unavailable Primary Care Provider Unavailabl e Encounter Details Date Type Department Care Team (Late st Contact Info) Description 07/31/2019 Transcribed Document [facility] [place] [facility] [place] [address] ProviderSonia MD [address] [place], [place] [phone] Social History Tobacco Use Types Packs/Day Years Used Date Smoking Tobacco: Never Assessed Comments Unknown Sex and Gender Information Value Date Recorded Sex Assigned at Not on file Legal Sex Female 1:42 PM CDT Gender Identity Not on file Sexual Orientation Not on file documented as of this encounter Miscellaneous Notes * Cerner Conversion Note - Historical ProviderMD - 07/31/2019 2:00 PM PORT PURSER Pain Assessment Entered On: 07/31/2019 15:12 EST Performed On: 07/31/2019 15:11 EST by Trina Adorno RN Intervention Information: acetaminophen Performed by Trina Adorno RN on 07/31/2019 14:11:00 EST acetaminophen,1000mg Oral Pain Assessment Pain Assessment : Follow-up assessment Pain Scale Goal : 5 Pain Improved by Intervention : Yes Trina Adorno RN - 07/31/2019 15:12 EST documented in this encounter Plan of Treatment Not on file documented as of this encounter Visit Diagnoses Not on filedocumented in this encounter
--- OUTSIDE RECORDS SUMMARY | 2025-01-23 08:36 | XMS_ITS | Encounter Summary ---
Author Organization [employer] Address [address] [place] [id number] Care Team Providers Care Classroom Instructor Name Role Phone Unavailable Primary Care Provider Unavailabl e Encounter Details Date Type Department Care Team (Late st Contact Info) Description 07/22/2019 Transcribed Document [facility] [place] [facility] [place] [address] ProviderSonia MD [address] [place], [place] [id number] Social History Tobacco Use Types Packs/Day Years Used Date Smoking Tobacco: Never Assessed Comments Unknown Sex and Gender Information Value Date Recorded Sex Assigned at Not on file Legal Sex Female 1:42 PM CDT Gender Identity Not on file Sexual Orientation Not on file documented as of this encounter Miscellaneous Notes * Cerner Conversion Note - Sonia ProviderMD - 07/22/2019 8:11 AM CARDIO TECH [facility] [place] Summary Primary Physician: PEE VILLAR MD-ORT Finalized Date/Time: 07/22/19 13:31:44 Pt. Name: SANDIE FRANK Jovana Castellano/Sex: 1955 Female Med Rec #: [id number] Physician: PEE VILLAR MD-ORCarmen Financial #: [id number] Pt. Type: I Room/Bed: 6/1 Admit/Disch: 07/22/19 04:50:00 - Institution: [facility] OR PACU Case Times Entry 1 In PACU I 07/22/19 09:39:00 Ready for PACU 07/22/19 11:35:00 Discharge Discharge from PACU 07/22/19 11:45:00 I Last Modified By: Lauren Cohen RN 07/22/19 13:31:42 [facility] Main OR PACU Case Times Audit 07/22/19 13:31:42 Manufacturers Agent: MISAEL Modifier: [email or web address] <+> 1 Discharge from PACU I Finalized By: Lauren Cohen, RN Document Signatures Signed By: Lauren Cohen RN 07/22/19 13:31 Electronically signed by Raman [facility] Conversion Chemistry Account Manager Cerner at 11/19/2022 8:29 PM CDT documented in this encounter Plan of Treatment Not on file documented as of this encounter Visit Diagnoses Not on filedocumented in this encounter
--- OUTSIDE RECORDS SUMMARY | 2025-01-23 08:36 | XMS_ITS | Encounter Summary ---
Author Organization [employer] Address [address] [place] [address] Care Team Providers Care Felt Checker Name Role Phone Unavailable Primary Care Provider Unavailabl e Encounter Details Date Type Department Care Team (Late st Contact Info) Description 07/22/2019 Transcribed Document [facility] [place] [facility] [place] [address] ProviderSonia MD [facility] [place] [id number] Social History Tobacco Use Types Packs/Day Years Used Date Smoking Tobacco: Never Assessed Comments Unknown Sex and Gender Information Value Date Recorded Sex Assigned at Not on file Legal Sex Female 1:42 PM CDT Gender Identity Not on file Sexual Orientation Not on file documented as of this encounter Miscellaneous Notes * Cerner Conversion Note - Historical ProviderMD - 07/22/2019 11:57 AM [employer] Admission History, Adult Entered On: 07/22/2019 12:03 EST Performed On: 07/22/2019 11:57 EST by Aimee Willis RN Advance Directive Patient has Advance Directive *Q : Yes, Advance Directive not with the patient Request Family/Rep to Provide Copy of AD : Yes Advance Directive Type : Living will Copy Advance Directive Verified/on Chart : No Aimee Willis RN - 07/22/2019 11:57 EST Anesthesia/Transfusion History Family History of Anesthesia Reaction : Prior transfusion without reaction Blood Transfusion Acceptable to Patient : Yes Transfusion History : Prior anesthesia reaction Type of Anesthesia Reaction : Excessive nausea/vomiting, Other: last surgery .. couldn't sit up or stand up Balance was off Family History of Anesthesia Reaction : None Aimee Willis RN - 07/22/2019 11:57 EST Anticipated Discharge Needs Anticipated Discharge Needs at This Time : Physical Therapy Aimee Willis RN - 07/22/2019 11:57 EST Education Topics, Admission Orientation DCP GENERIC CODE Advance Directives : Verbalizes understanding, Returns demonstration Allergy Band Applied : Verbalizes understanding, Returns demonstration Assessment/Vital Signs : Verbalizes understanding, Returns demonstration Bed Control : Verbalizes understanding, Returns demonstration Call Light : Verbalizes understanding, Returns demonstration Confidentiality : Verbalizes understanding, Returns demonstration Diet/Room Service : Verbalizes understanding, Returns demonstration Fall Prevention : Verbalizes understanding, Returns demonstration Hand Hygiene : Verbalizes understanding, Returns demonstration Healthcare Provider Visit : Verbalizes understanding, Returns demonstration ID Band Applied : Verbalizes understanding, Returns demonstration Orientation to Room/Bathroom : Verbalizes understanding, Returns demonstration Patient Bill of Rights : Verbalizes understanding, Returns demonstration Patient Rights/Responsibilities : Verbalizes understanding, Returns demonstration Patient Safety : Verbalizes understanding, Returns demonstration Personal Privacy Code : Verbalizes understanding, Returns demonstration Rapid Response Initiated by Patient/Family : Verbalizes understanding, Returns demonstration Rounding : Verbalizes understanding, Returns demonstration Siderails use/risks : Verbalizes understanding, Returns demonstration Skin Precautions : Verbalizes understanding, Returns demonstration Smoking Policy : Verbalizes understanding, Returns demonstration Telemetry Monitoring : Verbalizes understanding, Returns demonstration Television/Phone : Verbalizes understanding, Returns demonstration Visiting Policy : Verbalizes understanding, Returns demonstration Aimee Willis RN - 07/22/2019 11:57 EST Functional Assessment Living Situation : Home Patient Lives With : Spouse Persons Assisting Patient at Home : Spouse Current Daily Living Assistance : None Sensory Deficits : None, Other: dentures Mobility Assistance Prior to Admission : Partial assistance COLES Hx Falls Immediate/Within 3 Months : No Current Home Treatments : None, Nebulizer treatments Home Equipment : Cane, Pump, Supplies, Walker Cane : Cane, narrow based Pump : Pump, implanted Supplies : Supplies, oxygen Professional Skilled Services : None Special Services and Community Resources : None Aimee Willis RN - 07/22/2019 11:57 EST General Info Preferred Name : Sandie Patient Arrival Date/Time : 07/22/2019 11:55 EST Legal Guardian : Daughter, Spouse Legal Guardian : No Support Person/Patient Clinical Research Administrator : Yes Support Person/Pt Rep Name : spouse Jose Frank Contact Password : [email or web address] Support Person/Pt Rep Contact Information : [phone] Want Family/Rep/Phys Notified of Admit : No Emergency Contact #1 : Jose Emergency Contact # Emergency Contact #1 Relationship : spouse Emergency Contact #2 : -Angeline Emergency Contact #2 Phone Number : [phone] Emergency Contact #2 Relationship : -daughter Information Obtained From : Patient, Spouse Primary Language : Syriac Preferred Communication Mode : Verbal Communication Barrier : None Currently Lactating : No Status : Hysterectomy Aimee Willis RN - 07/22/2019 11:57 EST Fall Risk Scales ABCs Fall Injury Risk Identification : Bones, Surgery ABC Fall Injury Risk : Moderate to high injury risk Injury Moderate to High Risk Interventions : Bed alarm on, Chair alarm on, Wrist band (fall risk) on per policy COLES Hx Falls Immediate/Within 3 Months : No Coles Secondary Diagnosis : Yes COLES Use of Ambulatory Aid : Bed rest/Nurse assist COLES IV Therapy or IV Access : Yes Coles Gait/Transferring : Weak Coles Mental Status : Overestimates/Forgets limitations Coles Fall Risk Score : 60 COLES Fall Scale Risk Level : 46 or > High Risk [place] Fall Interventions : Adequate lighting, Bed in low position, Call device within reach, Fall prevention handout/education per facility policy, Frequent orientation to call device, Frequent orientation to surroundings, Non-slip footwear, Personal items within reach, Reinforced to call for assistance before getting out of bed, Room free of clutter/spills, Upper side-rails up, Wheels locked, Wires/Cords secured Fall Moderate to High Risk Interventions : Bed alarm on, Chair alarm on, Wrist band (fall risk) on Aimee Willis RN - 07/22/2019 11:57 EST Fall Risk Education Grid Alarms : Verbalizes understanding, Returns demonstration Assistive Equipment Use : Verbalizes understanding, Returns demonstration Bed Height/Stabilization : Verbalizes understanding, Returns demonstration Call light use : Verbalizes understanding, Returns demonstration Door Open : Verbalizes understanding, Returns demonstration Environmental Management : Verbalizes understanding, Returns demonstration Eyeglasses Use : Verbalizes understanding, Returns demonstration Fall Community Resources : Verbalizes understanding, Returns demonstration Fall Contract/Letter : Verbalizes understanding, Returns demonstration Fall Prevention in the Home : Verbalizes understanding, Returns demonstration Fall Prevention Protocol : Verbalizes understanding, Returns demonstration Home Risk Assessment : Verbalizes understanding, Returns demonstration Need Constant Observation : Verbalizes understanding, Returns demonstration Night Light Use : Verbalizes understanding, Returns demonstration Nonskid Footwear Use : Verbalizes understanding, Returns demonstration Notification of Staff When Leaving : Verbalizes understanding, Returns demonstration Orthostatic Hypotension Precautions : Verbalizes understanding, Returns demonstration Personal Article Availability : Verbalizes understanding, Returns demonstration Prevention Responsibility Family : Verbalizes understanding, Returns demonstration Prevention Responsibility Patient : Verbalizes understanding, Returns demonstration Risk Alert Methods : Verbalizes understanding, Returns demonstration Risk Factors : Verbalizes understanding, Returns demonstration Safety Aids : Verbalizes understanding, Returns demonstration Siderails use/risks : Verbalizes understanding, Returns demonstration Special Assistive Devices : Verbalizes understanding, Returns demonstration Staff Responsiveness : Verbalizes understanding, Returns demonstration Symptom Identification & Action Plan *Q : Verbalizes understanding, Returns demonstration Symptom Reporting : Verbalizes understanding, Returns demonstration Toileting Schedule : Verbalizes understanding, Returns demonstration Transfer/Mobility Techniques : Verbalizes understanding, Returns demonstration Urinal/Bedpan Availability : Verbalizes understanding, Returns demonstration Wait for Assistance : Verbalizes understanding, Returns demonstration Wheelchair Safety : Verbalizes understanding, Returns demonstration Aimee Willis RN - 07/22/2019 11:57 EST Barriers to Learning : None evident Individuals Taught : Patient, Spouse Readiness to Learn : Cooperative Teaching Method : Explanation Learning Style Preferences Family : Printed materials, Verbal explanation Learning Style Preferences Patient : Printed materials, Verbal explanation Teaching Evaluation : Verbalizes understanding Fall Risk Scale Calc Temp : 0 Aimee Willis RN - 07/22/2019 11:57 EST Health Histories Smoking Status : Never (less than 100 in lifetime; none in last 30 days) Smokeless Tobacco Status : Never Aimee Willis RN - 07/22/2019 11:57 EST Social History (As Of: 07/22/2019 12:03:28 EST) Tobacco: Smoking Status Never smoker. (Last Updated: 11/13/2014 11:28:17 EDT by NOELLE LYNCH, RN) Never (less than 100 in lifetime) Smoking Status. Never Smokeless Tobacco Status. (Last Updated: 07/08/2019 09:38:28 EST by BHAVANI MCCORMICK, NICOLASA) Alcohol: Alcohol Use History No. (Last Updated: 11/13/2014 11:27:43 EDT by NOELLE LYNCH, RN) Alcohol Use History No. (Last Updated: 07/08/2019 09:38:28 EST by BHAVANI MCCORMICK, RN) Substance Abuse: Drug Use Hx: No. Use in Last 12 Months: No. (Last Updated: 11/13/2014 11:28:11 EDT by NOELLE LYNCH, NICOLASA) Drug Use Hx: No. (Last Updated: 07/08/2019 09:38:28 EST by BHAVANI MCCORMICK, RN) Nutrition/Health: Caffeine intake amount: tea , soft drinks , 2 daily. (Last Updated: 11/13/2014 11:28:07 EDT by NOELLE LYNCH, NICOLASA) Height and Weight, Clinical Dosing Height Source : Stated Height Entry Format : [place] Height, Feet : 5 ft(Converted to: 152 cm, 60 Inch) Height, Inches : 7 Inch(Converted to: 0 ft 7 Inch, 17.78 cm) Clinical Height : 170.18 cm Weight Source : Standing scale Weight Entry Format : [place] Clinical Dosing Weight : 104.55 kg Weight, Pounds : 230 lb Body Surface Area (BSA) : 2.15 m2 Body Mass Index : 36.1 kg/m2 (HI) [place] Body Weight : 61 kg Aimee Willis RN - 07/22/2019 11:57 EST Infectious Disease History Infectious Disease History : Chicken pox/Shingles, Influenza, Measles, Mumps Active Surveillance Screen Assessment : Patient does not meet any of above criteria Active Surveillance Screen Negative : Yes Isolation Needed : Standard Fever/Chills Last 48 Hours : No Travel To Regions with Travel Advisories : No Travel Outside [place] Within Last 30 Days : No Contact With Traveler to Advisory Region : No Exposure to Contagious Illness : No Tuberculosis Symptoms : None Aimee Willis RN - 07/22/2019 11:57 EST Tetanus Immunization Status Previous Tetanus Immunizations : No qualifying data available. Tetanus Immunization : Unknown Aimee Willis RN - 07/22/2019 11:57 EST Influenza Vaccine Asmt, Adult Previous Vaccines from Immunization Schedule : No qualifying data available. Influenza Immunization, Current Season : Yes Influenza Immunization Date : 06/04/2019 EDT Aimee Willis RN - 07/22/2019 11:57 EST Pneumococcal Vaccine Previous Vaccines from Immunization Schedule : No qualifying data available. Pneumonia Immunization Received : Yes Aimee Willis RN - 07/22/2019 11:57 EST Order Details Transport Mode Order Detail : Bed (including specialty) Order Detail : 0 IV Order Detail : 1 Oxygen Order Detail : 1 Nurse Collect Order Detail : 0 Lift/Transfer : Moderate assist Aimee Willis RN - 07/22/2019 11:57 EST Nutrition History Feeding Ability : Independent Adaptive Feeding Equipment : None Adaptive Feeding Equipment : Regular Oral Medication Administration : By mouth Eating Poorly Due to Decreased Appetite : No Unplanned Weight Loss in Past 3-6 Months : No Malnutrition Screening Tool Total(mal) : 0 Malnutrition Screening Tool Risk Level : Patient not at risk Aimee Willis RN - 07/22/2019 11:57 EST [place] Suicide Severity Rating Scale (C-SSRS) CSSRS Past Month Wish to be : No CSSRS Past Month Suicidal Thoughts : No CSSRS Lifetime Suicide Behavior : No Suicide Severity Rating Score : 0 Suicide Severity Rating : No Additional Care Required at this time Aimee Willis RN - 07/22/2019 11:57 EST Psychosocial History Does Someone Depend on You for Care? : No Chronic/Terminal Illness w/Freq Visits : Yes Do You Have a History of the Following? : Anxiety, Depression Currently in Unsafe Situation : No Do You Have a Support System? : Yes Aimee Willis RN - 07/22/2019 11:57 EST Sleep Apnea Risk Assmt Hx of [...] Sleep Apnea Risk Level Score : 4 Aimee Willis RN - 07/22/2019 11:57 EST Spiritual/Cultural Needs Significant Loss/Crisis in Past 3 Years : No Aimee Willis RN - 07/22/2019 11:57 EST Valuables and Belongings Valuables and Belongings : Clothing, Jewelry, Personal devices, Assistive devices Clothing : Common streetwear Clothing Disposition : With family Personal Device Disposition : With family Jewelry : Ring, Watch Jewelry Disposition : With family Personal Devices : Dentures, upper, Dentures, lower Assistive Devices From Home : Cane Assistive Device Disposition : With family Aimee Willis RN - 07/22/2019 11:57 EST documented in this encounter Plan of Treatment Not on file documented as of this encounter Visit Diagnoses Not on filedocumented in this encounter
--- OUTSIDE RECORDS SUMMARY | 2025-01-23 08:36 | XMS_ITS | Encounter Summary ---
Author Organization [employer] Address [address] [place] [address] Care Team Providers Care Piece Worker Name Role Phone Unavailable Primary Care Provider Unavailabl e Encounter Details Date Type Department Care Team (Late st Contact Info) Description 07/31/2019 Transcribed Document [facility] [address] [place] [address] Diaz Vega MD [address] [place] [address] Social History Tobacco Use Types Packs/Day Years Used Date Smoking Tobacco: Never Assessed Comments Unknown Sex and Gender Information Value Date Recorded Sex Assigned at Not on file Legal Sex Female 1:42 PM CDT Gender Identity Not on file Sexual Orientation Not on file documented as of this encounter Miscellaneous Notes * Cerner Conversion Note - Diaz Vega MD - 07/31/2019 11:19 AM EST Patient: SANDIE AMARO Age: 63 years Sex: Female : 1955 Associated Diagnoses: None Author: DIAZ VEGA MD Subjective Patient seen and examined No issues overnight She feels better Still feels weak and tired Hemodynamically stable Review of Systems Constitutional: Weakness, Decreased activity, [...] Confusion meropenem None Documented Problem list: Medical hx cataract surgery bilateral / SNOMED CT 7695857154 / Confirmed high blood pressure / SNOMED CT 7613373717 / Confirmed uses Renexa / SNOMED CT 8061834 / Confirmed hx. chest pain / SNOMED CT 7174415334 / Confirmed high cholesterol / SNOMED CT 31507033 / Confirmed hx colon resection secondary decreased function / SNOMED CT 7135670233 / Confirmed chronic diarrhea / SNOMED CT 088146871 / Confirmed GERD / SNOMED CT 155309666 / Confirmed kidney stone right kidney current and hx / SNOMED CT 077345436 / Confirmed hx. frequent UTIs / SNOMED CT 5774028804 / Confirmed restless leg syndrome / SNOMED CT 93199333 / Confirmed chronic back pain / SNOMED CT 890916319 / Confirmed fibromyalgia / SNOMED CT 22144619 / Confirmed rheumatoid arthritis / SNOMED CT 331865284 / Confirmed Hypothyroidism / SNOMED CT 52578041 / Confirmed depression / SNOMED CT 40175429 / Confirmed migraine headaches / SNOMED CT 178898730 / Confirmed peripheral neuropathy / SNOMED CT 31176755 / Confirmed chronic hydrocort use / SNOMED CT 2658098 / Confirmed Adrenal insufficiency / SNOMED CT 6925263104 / Confirmed Arthritis / SNOMED CT 5509484 / Confirmed Aortic valve stenosis / SNOMED CT 338157827 / Confirmed At risk for sleep apnea / IMO 15378040 / Confirmed Glaucoma / SNOMED CT 84105522 / Confirmed Cataracts, both eyes / SNOMED CT 285135354 / Confirmed Osteoporosis / SNOMED CT 086336513 / Confirmed Seasonal allergies / SNOMED CT 6652015416 / Confirmed Asthma / SNOMED CT 466794046 / Confirmed Vitamin D deficiency / SNOMED CT 74675939 / Confirmed Dementia / SNOMED CT 51622551 / Confirmed Chronic kidney disease / SNOMED CT 4900818081 / Confirmed B12 deficiency / SNOMED CT 727411683 / Confirmed Pneumonia / SNOMED CT 414630443 / Confirmed Resolved: Hypotension / SNOMED CT 51914143 Canceled: adrenal insufficiency / SNOMED CT 8993829930 Canceled: Hyperthyroidism / SNOMED CT 97636OYB-[id number], Active Problems (33) Adrenal insufficiency Aortic valve [...] BID Crestor: 20 mg, Oral, At Bedtime Cymbalta: 30 mg, Oral, QPM Cymbalta: 60 mg, Oral, QAM Dulcolax Laxative: 10 mg, Rectal, 1-Time, PRN: Constipation Flonase: 1 [place], Nostrils Both, BID Florastor: 250 mg, Oral, Daily Lopressor: 12.5 mg, Oral, BID Melatonin: 9 mg, Oral, At Bedtime Protonix: 40 mg, Oral, Daily Proventil 2.5 mg/3 mL (0.083%) inhalation solution: 3 mL, Nebulized Inhalation, RT_Q6H QUEtiapine: 300 mg, Oral, At Bedtime Restasis 0.05% ophthalmic emulsion: 1 Drop, Eyes Both, Q12H Senokot S: 2 Tab, Oral, At Bedtime Toradol: 15 mg, IV Push, Q6H, PRN: Pain (Moderate 4-6) Tylenol: 1,000 mg, Oral, Q8H Zofran: 4 mg, IV Push, Q8H, PRN: Nausea/Vomiting albuterol 2.5 mg/3 mL (0.083%) inhalation solution: 2.5 mg, Inhalation, Q4H, PRN: Wheezing aspirin: 81 mg, Oral, BID budesonide: 0.5 mg, Nebulized Inhalation, BID diphenhydrAMINE: 12.5 mg, Oral, At Bedtime, PRN: Insomnia donepezil: 20 mg, Oral, Daily gabapentin: 100 mg, Oral, QPM hydrocortisone: 5 mg, Oral, BID lamoTRIgine: 100 mg, Oral, BID levothyroxine: 100 mcg, Oral, Daily memantine: 10 mg, Oral, BID miconazole 2% topical powder: 1 Application, Topical, BID montelukast: 10 mg, Oral, Daily multivitamin: [...] intl units oral capsule: 1 Cap, Oral, Z9Iocld, 0 Refill(s) Dilaudid: pain pump, 0 Refill(s) Flax Seed Oil: 1,200 mg, Oral, BID, 0 Refill(s) Flonase: 1 [place], Nostrils Both, BID Lunesta: 3 mg, Oral, [...] azelastine 205.5 mcg/inh (0.15%) nasal spray: 2 [place], Nasal, BID, PRN: for allergy symptoms, 0 [...] azelastine 205.5 mcg/inh (0.15%) nasal spray 2 [place], PRN, Nasal, BID biotin 5 mg, Oral, [...] 50,000 Int Units = 1 Cap, Oral, F9Ayyst Dilaudid donepezil 23 mg, Oral, Daily famotidine 40 mg, Oral, BID Flax Seed Oil 1,200 mg, Oral, BID Flonase 1 [place], Nostrils Both, BID gabapentin 100 mg oral [...] 2,000 Int Units, Oral, Daily , Medications (36) Active Scheduled: (25) acetaminophen 500 mg tab 1,000 mg 2 Tab, Oral, Q8H albuterol 0.083% inh soln 3 mL 3 mL, Nebulized Inhalation, RT_Q6H aspirin EC 81 mg tab 81 mg 1 Tab, Oral, BID budesonide 0.5 mg/2 mL inh susp 0.5 mg 2 mL, Nebulized Inhalation, BID cycloSPORINE 0.05% ophth emulsion 1 Drop, Eyes Both, Q12H docusate sodium 100 mg cap 100 mg 1 Cap, Oral, BID donepezil 5 mg tab 20 mg 4 Tab, Oral, Daily DULoxetine DR 30 mg cap 30 mg 1 Cap, Oral, QPM DULoxetine DR 60 mg cap 60 mg 1 Cap, Oral, QAM fluticasone 0.05% nasal spray 1 [place], Nostrils Both, BID gabapentin 100 mg cap [...] tab 12.5 mg 0.5 Tab, Oral, BID miconazole nitrate 2% pwd 70 g 1 Application, Topical, BID montelukast 10 mg tab 10 mg [...] mg tab 2 Tab, Oral, At Bedtime Continuous: (0) PRN: (11) albuterol 0.083% inh soln 3 [...] 24 hrs) Last Charted Minimum Maximum Temp 97.8 (JUL 31 05:46) 97.8 (JUL 31 05:46) 98 (JUL 30 14:07) Apical HR 64 (JUL 31 08:46) 64 (JUL 30 10:34) 64 (JUL 30 10:34) Mon HR 65 (JUL 31 09:03) 61 (JUL 31 05:46) 72 (JUL 30 12:16) Resp Rate 18 (JUL 31 09:03) 16 (JUL 30 14:07) 18 (JUL 30 12:16) SBP 132 (JUL 31 05:46) 103 (JUL 30 10:34) 134 (JUL 30 22:00) DBP 61 (JUL 31 05:46) L 47 (JUL 30 10:34) 61 (JUL 31 05:46) MAP 79 (JUL 31 05:46) 67 (JUL 30 14:07) 79 (JUL 31 05:46) SpO2 95 (JUL 31 09:03) L 93 (JUL 31 05:46) 100 (JUL 30 19:00) Physical Examination VS/Measurements Vitals Signs (last 24 hrs) Last Charted Minimum Maximum Temp 97.8 (JUL 31 05:46) 97.8 (JUL 31 05:46) 98 (JUL 30 14:07) Apical HR 64 (JUL 31 08:46) 64 (JUL 30 10:34) 64 (JUL 30 10:34) Mon HR 65 (JUL 31 09:03) 61 (JUL 31 05:46) 72 (JUL 30 12:16) Resp Rate 18 (JUL 31 09:03) 16 (JUL 30 14:07) 18 (JUL 30 12:16) SBP 132 (JUL 31 05:46) 103 (JUL 30 10:34) 134 (JUL 30 22:00) DBP 61 (JUL 31 05:46) L 47 (JUL 30 10:34) 61 (JUL 31 05:46) MAP 79 (JUL 31 05:46) 67 (JUL 30 14:07) 79 (JUL 31 05:46) SpO2 95 (JUL 31 09:03) L 93 (JUL 31 05:46) 100 (JUL 30 19:00) General: Alert and oriented, Mild distress, Obese, [...] review: Labs (Last four charted values) WBC 6.4 (JUL 31) 5.6 (JUL 30) 5.6 (JUL 29) 4.2 (JUL 27) HB L 9.4 (JUL 31) L 9.3 (JUL 30) L 9.5 (JUL 29) L 8.8 (JUL 27) HCT L 29.9 (JUL 31) L 29.8 (JUL 30) L 29.9 (JUL 29) L 27.8 (JUL 27) Plt 185 (JUL 31) 172 (JUL 30) 179 (JUL 29) 165 (JUL 27) Na 143 (JUL 31) 144 (JUL 30) 144 (JUL 29) H 148 (JUL 28) K 4.4 (JUL 31) 4.4 (JUL 30) 3.9 (JUL 29) 4.1 (JUL 28) Cl 110 (JUL 31) 110 (JUL 30) 111 (JUL 29) 111 (JUL 28) CO2 29 (JUL 31) 28 (JUL 30) 28 (JUL 29) 29 (JUL 28) BUN 15 (JUL 31) 13 (JUL 30) 11 (JUL 29) 10 (JUL 28) Cr H 1.15 (JUL 31) H 1.14 (JUL 30) 1.00 (JUL 29) 1.00 (JUL 28) Glu R 106 (JUL 31) H 115 (JUL 30) 105 (JUL 29) H 115 (JUL 28) Ca 9.4 (JUL 31) 9.1 (JUL 30) 9.3 (JUL 29) 9.2 (JUL 28) AST 29 (JUL 30) 23 (JUL 29) 26 (JUL 25) 23 (JUL 24) ALT 23 (JUL 30) 23 (JUL 29) 18 (JUL 25) 19 (JUL 24) ALK P 94 (JUL 30) 97 (JUL 29) 86 (JUL 25) 81 (JUL 24) T Bili 0.4 (JUL 30) 0.5 (JUL 29) 0.4 (JUL 25) 0.3 (JUL 24) PTN L 5.4 (JUL 30) L 5.6 (JUL 29) L 5.1 (JUL 25) L 5.0 (JUL 24) ALB L 2.8 (JUL 30) L 2.9 (JUL 29) L 2.6 (JUL 25) L 2.7 (JUL 24) . Impression and Plan S/p Right Total Hip Arthroplasty by Dr. Newton -Pain control prn -Encourage incentive spirometry -PT/OT to evaluate and treat -DVT ppx per Dr. Newton. Educated patient on signs and symptoms of DVT/PE and to seek care if they develop. They voiced understanding. Acute hypoxic respiratory failure, improving -Plan to wean off O2, keep continuous O2 monitoring -Consider CXR if still on O2 in a few hours -Incentive Spirometer encouraged, lungs clear on exam Asthma, stable - Nebs/Inhalers prn. Seizure Disorder, stable - Continue Lamictal. Hypothyroidism, stable - Continue Synthroid. Dementia - Continue Donepezil [...] she got the IV medication during surgery. -continue home hydrocortisone 5 mg BID -BP is stable, continue to monitor Resting tremor -Followed by Neurologist at DVT ppx per Dr. Newton team: Aspirin 81 mg tabs, 1 BID for 45 days GI ppx: protonix Full code Time spent 25 minutes Discharge plan Patient medically ready to be discharged to half-way facility documented in this encounter Plan of Treatment Not on file documented as of this encounter Visit Diagnoses Not on filedocumented in this encounter
--- OUTSIDE RECORDS SUMMARY | 2025-01-23 08:36 | XMS_ITS | Encounter Summary ---
Author Organization [employer] Address [address] [place] [address] Care Team Providers Care Workforce Management Coordinator Name Role Phone Unavailable Primary Care Provider Unavailabl e Encounter Details Date Type Department Care Team (Late st Contact Info) Description 08/01/2019 Transcribed Document [facility] [place] [facility] [place] [address] ProviderSonia MD [address] [place], [place] [address] Social History Tobacco Use Types Packs/Day Years Used Date Smoking Tobacco: Never Assessed Comments Unknown Sex and Gender Information Value Date Recorded Sex Assigned at Not on file Legal Sex Female 1:42 PM CDT Gender Identity Not on file Sexual Orientation Not on file documented as of this encounter Miscellaneous Notes * Cerner Conversion Note - Historical ProviderMD - 08/01/2019 5:00 PM HUMANITIES DEPARTMENT CHAIR Chart Check - Review Order Profile Entered On: 08/01/2019 17:42 EST Performed On: 08/01/2019 17:00 EST by Maryann Cam RN Chart Check Powerplans Initiated/Discontinued as Appropriate : Yes All Active Orders Reviewed : Yes Maryann Cam RN - 08/01/2019 17:42 EST Electronically signed by Ivelisse Camargo Conversion Food And Nutrition Supervisor Cerner at 11/19/2022 8:43 PM CDT documented in this encounter Plan of Treatment Not on file documented as of this encounter Visit Diagnoses Not on filedocumented in this encounter
--- OUTSIDE RECORDS SUMMARY | 2025-01-23 08:36 | XMS_ITS | Encounter Summary ---
Author Organization [employer] Address [address] [place] [address] Care Team Providers Care Marine Service Station Attendant Name Role Phone Unavailable Primary Care Provider Unavailabl e Encounter Details Date Type Department Care Team (Late st Contact Info) Description 08/02/2019 Transcribed Document [facility] [place] [facility] [place] [address] ProviderSonia MD [address] [place], [place] [address] Social History Tobacco Use Types Packs/Day Years Used Date Smoking Tobacco: Never Assessed Comments Unknown Sex and Gender Information Value Date Recorded Sex Assigned at Not on file Legal Sex Female 1:42 PM CDT Gender Identity Not on file Sexual Orientation Not on file documented as of this encounter Miscellaneous Notes * Cerner Conversion Note - Sonia ProviderMD - 08/02/2019 10:41 AM PRISON GUARD SUPERVISOR Final Discharge Planning Entered On: 08/02/2019 10:49 EST Performed On: 08/02/2019 10:41 EST by NICHOLAS HOGUE RN-Prop Setter Final Discharge Planning Discharge Arrangements : Patient Post-Acute Information Patient Name: SANDIE FRANK Gender: Female : [birth year] Age: 63 Years No Post-Acute Placement(s) Listed No Post-Acute Service(s) Listed No [place] Referral(s) Listed Patient Offered Choice/Affiliations Explained : Yes Designation of Choice Signed : No Important Medicare Message Reviewed With : Patient, Spouse Important Medicare Message Reviewed D/T : 08/02/2019 10:00 EST Is Patient High/Moderate Readmission Risk? : No Patient/Family Notified of Plan : Yes Support Person/Pt Rep Notified of Plan : Yes Patient/Family Notified : Patient and spouse Is Patient Ready for Discharge? : Yes Physician Notified Patient is Ready for Discharge? : Yes Discharge To Care Management : IRF -Inpatient Rehabilitation Facility[facility] NICHOLAS HOGUE, RN-Prop Setter - 08/02/2019 10:41 EST Final Narrative Note Final Narrative Note : Received call from Ann who states the pt has a bed on [facility] today in acute in-pt rehab. No choice form need be signed as this is the only facility that provides this level of care in [place]. IM was reviewed with pt and spouse and after discussion with PT, determination was made that pt is able to be transferred by private vehicle with stand pivot with gait belt into and out of vehicle. Her spouse is agreeable to transport the pt to [facility]. CM notified the bedside RN and the physician, Dr. Waterman. CM will fax d/c summary when available. No further d/c needs identified. NICHOLAS HOGUE, RN-Prop Setter - 08/02/2019 10:41 EST Electronically signed by Raman [facility] Conversion Integration Aide Cerner at 11/19/2022 8:37 PM CDT documented in this encounter Plan of Treatment Not on file documented as of this encounter Visit Diagnoses Not on filedocumented in this encounter
--- OUTSIDE RECORDS SUMMARY | 2025-01-23 08:36 | XMS_ITS | Encounter Summary ---
Author Organization [employer] Address [address] [place] [address] Care Team Providers Care Industrial Engineering Technician Name Role Phone Unavailable Primary Care Provider Unavailabl e Encounter Details Date Type Department Care Team (Late st Contact Info) Description 07/26/2019 Transcribed Document [facility] [place] [facility] [place] [address] ProviderSonia MD [address] [place] [place], [place] [address] Social History Tobacco Use Types Packs/Day Years Used Date Smoking Tobacco: Never Assessed Comments Unknown Sex and Gender Information Value Date Recorded Sex Assigned at Not on file Legal Sex Female 1:42 PM CDT Gender Identity Not on file Sexual Orientation Not on file documented as of this encounter Miscellaneous Notes * Cerner Conversion Note - Historical ProviderMD - 07/26/2019 7:51 PM MOLD INJECTOR Event Note Entered On: 07/26/2019 19:51 EST Performed On: 07/26/2019 19:51 EST by Maliha Hamilton RN Event Note Event Date/Time : 07/26/2019 18:00 EST Event Location : Assigned room Event Details : Nursing assessment additional narrative Description of Event : Recieved report from NICOLASA Clark Maranda, RN - 07/26/2019 19:51 EST documented in this encounter Plan of Treatment Not on file documented as of this encounter Visit Diagnoses Not on filedocumented in this encounter
--- OUTSIDE RECORDS SUMMARY | 2025-01-23 08:36 | XMS_ITS | Encounter Summary ---
Author Organization [address] [facility] [employer] Address [address] [place] [address] Care Team Providers Care Lease Operator Name Role Phone Unavailable Primary Care Provider Unavailabl e Encounter Details Date Type Department Care Team (Late st Contact Info) Description 08/01/2019 Transcribed Document [facility] [place] [facility] [address] ProviderSonia MD [address] [place] [id number] Social History Tobacco Use Types Packs/Day Years Used Date Smoking Tobacco: Never Assessed Comments Unknown Sex and Gender Information Value Date Recorded Sex Assigned at Not on file Legal Sex Female 1:42 PM CDT Gender Identity Not on file Sexual Orientation Not on file documented as of this encounter Miscellaneous Notes * Cerner Conversion Note - Historical ProviderMD - 08/01/2019 10:00 PM REGULATORY COMPLIANCE DIRECTOR Pain Assessment Entered On: 08/01/2019 23:54 EST Performed On: 08/01/2019 23:12 EST by Priti Davenport RN Intervention Information: acetaminophen Performed by Priti Davenport RN on 08/01/2019 22:12:00 EST acetaminophen,1000mg Oral Pain Assessment Pain Assessment : Follow-up assessment Pain Scale Goal : 5 Pain Scale Used : 0-10 Scale Pain Comment : patient is sleeping Priti Davenport RN - 08/01/2019 23:53 EST Pain Scale Intensity : Alternate pain scale used Priti Davenport RN - 08/01/2019 23:53 EST Image 4 - Images currently included in the form version of this document have not been included in the text rendition version of the form. documented in this encounter Plan of Treatment Not on file documented as of this encounter Visit Diagnoses Not on filedocumented in this encounter
--- OUTSIDE RECORDS SUMMARY | 2025-01-23 08:36 | XMS_ITS | Encounter Summary ---
Author Organization [employer] Address [address] [place] [address] Care Team Providers Care Project Developer Name Role Phone Unavailable Primary Care Provider Unavailabl e Encounter Details Date Type Department Care Team (Late st Contact Info) Description 07/26/2019 Transcribed Document [facility] [place] [facility] [place] [address] ProviderSonia MD [address] [place] [phone] Social History Tobacco Use Types Packs/Day Years Used Date Smoking Tobacco: Never Assessed Comments Unknown Sex and Gender Information Value Date Recorded Sex Assigned at Not on file Legal Sex Female 1:42 PM CDT Gender Identity Not on file Sexual Orientation Not on file documented as of this encounter Miscellaneous Notes * Cerner Conversion Note - Historical ProviderMD - 07/26/2019 6:00 AM FURNITURE SALESPERSON Pain Assessment Entered On: 07/26/2019 6:21 EST Performed On: 07/26/2019 6:51 EST by Barrington Roberts RN Intervention Information: acetaminophen Performed by Barrington Roberts RN on 07/26/2019 05:51:00 EST acetaminophen,1000mg Oral Pain Assessment Pain Assessment : Follow-up assessment Pain Scale Goal : 5 Pain Scale Used : 0-10 Scale Pain Intervention, Drug : Medicated Pain Improved by Intervention : Yes Barrington Roberts RN - 07/26/2019 6:20 EST Pain Scale Intensity : 3 Barrington Roberts RN - 07/26/2019 6:20 EST Image 4 - Images currently included in the form version of this document have not been included in the text rendition version of the form. documented in this encounter Plan of Treatment Not on file documented as of this encounter Visit Diagnoses Not on filedocumented in this encounter
--- OUTSIDE RECORDS SUMMARY | 2025-01-23 08:36 | XMS_ITS | Encounter Summary ---
Author Organization [employer] Address [address] [place] [address] Care Team Providers Care Sash Assembler Name Role Phone Unavailable Primary Care Provider Unavailabl e Encounter Details Date Type Department Care Team (Late st Contact Info) Description 07/31/2019 Transcribed Document [facility] [place] [facility] [place] [address] ProviderSonia MD [address] [place], [place] [address] Social History Tobacco Use Types Packs/Day Years Used Date Smoking Tobacco: Never Assessed Comments Unknown Sex and Gender Information Value Date Recorded Sex Assigned at Not on file Legal Sex Female 1:42 PM CDT Gender Identity Not on file Sexual Orientation Not on file documented as of this encounter Miscellaneous Notes * Cerner Conversion Note - Historical ProviderMD - 07/31/2019 5:00 AM ELECTRONICS INSPECTOR Chart Check - Review Order Profile Entered On: 07/31/2019 5:27 EST Performed On: 07/31/2019 5:00 EST by Cathie Lundy RN Chart Check Powerplans Initiated/Discontinued as Appropriate : Yes All Active Orders Reviewed : Yes Cathie Lundy RN - 07/31/2019 5:27 EST Electronically signed by Poil Camargo Conversion Grinder Set Up Operator Thread Tool Cerner at 11/19/2022 8:28 PM CDT documented in this encounter Plan of Treatment Not on file documented as of this encounter Visit Diagnoses Not on filedocumented in this encounter
--- OUTSIDE RECORDS SUMMARY | 2025-01-23 08:36 | XMS_ITS | Encounter Summary ---
Author Organization [employer] Address [address] [place] [address] Care Team Providers Care Program Architect Name Role Phone Unavailable Primary Care Provider Unavailabl e Encounter Details Date Type Department Care Team (Late st Contact Info) Description 07/11/2019 Transcribed Document [facility] [place] [facility] [place] [address] ProviderSonia MD [address], [place] [phone] Social History Tobacco Use Types Packs/Day Years Used Date Smoking Tobacco: Never Assessed Comments Unknown Sex and Gender Information Value Date Recorded Sex Assigned at Not on file Legal Sex Female 1:42 PM CDT Gender Identity Not on file Sexual Orientation Not on file documented as of this encounter Miscellaneous Notes * Cerner Conversion Note - Historical ProviderMD - 07/11/2019 12:38 PM TUBER OPERATOR Total Joints Assessment Entered On: 07/11/2019 12:43 EST Performed On: 07/11/2019 12:38 EST by Ana Call Nurse RN HOOS, JR. Hip Survey 1. Going up or down stairs : Severe 2. Walking on an uneven surface : Severe 3. Rising from sitting : Severe 4. Bending to floor/lease picker an object : Severe 5. Lying in bed (turning over, maintaining hip position) : Moderate 6. Sitting : Moderate ANIL ABERNATHY Raw Score (ref) : 16 Ana Call Nurse RN - 07/11/2019 12:38 EST PROMIS Global Health Scale In general, would you say your health is: : Fair In general, would you say your quality of life is: : Fair In general, how would you rate your physical health? : Fair In general, how would you rate your mental health, including your mood and your ability to think? : Fair In general, how would you rate your satisfaction with your social activities and relationships? : Fair In general, please rate how well you carry out your usual social activities and roles. (This includes activities at home, at work and in your community, and responsibilities as a parent, child, spouse, employee, friend, etc.) : Poor To what extent are you able to carry out your everyday physical activities such as walking, climbing stairs, carrying groceries, or moving a chair? : A little How often have you been bothered by emotional problems such as feeling anxious, depressed or irritable? : Often How would you rate your fatigue on average? : Severe How would you rate your pain on average? : 8 Global Physical Health Score (ref) : 8 Global Mental Health Score (ref) : 8 Ana Call Nurse RN - 07/11/2019 12:38 EST documented in this encounter Plan of Treatment Not on file documented as of this encounter Visit Diagnoses Not on filedocumented in this encounter
--- OUTSIDE RECORDS SUMMARY | 2025-01-23 08:36 | XMS_ITS | Encounter Summary ---
Author Organization [employer] iatives Address [address] [place] [address] Care Team Providers Care Track Machine Operator Repairer Name Role Phone Unavailable Primary Care Provider Unavailabl e Encounter Details Date Type Department Care Team (Late st Contact Info) Description 07/22/2019 Transcribed Document [facility] [place] [facility] [place] [address] ProviderSonia MD [address] [place], [place] [phone] Social History Tobacco Use Types Packs/Day Years Used Date Smoking Tobacco: Never Assessed Comments Unknown Sex and Gender Information Value Date Recorded Sex Assigned at Not on file Legal Sex Female 1:42 PM CDT Gender Identity Not on file Sexual Orientation Not on file documented as of this encounter Miscellaneous Notes * Cerner Conversion Note - Historical ProviderMD - 07/22/2019 2:01 PM BOWLING ALLEY ATTENDANT Patient: SANDIE FRANK Age: 63 years Sex: Female : 1955 Associated Diagnoses: None Author: Stuart Elizondo, Pharmacist Pharmacy verified patient's allergies and home medication list with the patient and pharmacy records and are as follows: Home Medications (36) Active albuterol 2.5 mg/3 mL (0.083%) inhalation solution 2.5 mg = 3 mL, PRN, Inhalation, Q4H alendronate 70 mg, Oral, Weekly Alrex 0.2% ophthalmic suspension 1 Drop, Eyes Both, BID azelastine 205.5 mcg/inh (0.15%) nasal spray 2 [place], PRN, Nasal, BID biotin 5 mg, Oral, [...] 50,000 Int Units = 1 Cap, Oral, [id number] Dilaudid donepezil 23 mg, Oral, Daily famotidine [...] D3 2,000 Int Units, Oral, Daily Allergies (3) Active Reaction codeine None Documented Lyrica Confusion meropenem None Documented Thanks, Bulmaro Elizondo, PharmD #[id number] Electronically signed by Raman [facility] Conversion Energy Auditor Cerner at 11/19/2022 8:26 PM CDT documented in this encounter Plan of Treatment Not on file documented as of this encounter Visit Diagnoses Not on filedocumented in this encounter
--- OUTSIDE RECORDS SUMMARY | 2025-01-23 08:36 | XMS_ITS | Encounter Summary ---
Author Organization [employer] iatives Address [address] [place] [address] Care Team Providers Care Hydrometeorologist Name Role Phone Unavailable Primary Care Provider Unavailabl e Encounter Details Date Type Department Care Team (Late st Contact Info) Description 07/31/2019 Transcribed Document [place] [facility] [address] ProviderSonia MD [address] [place], [place] [phone] Social History Tobacco Use Types Packs/Day Years Used Date Smoking Tobacco: Never Assessed Comments Unknown Sex and Gender Information Value Date Recorded Sex Assigned at Not on file Legal Sex Female 1:42 PM CDT Gender Identity Not on file Sexual Orientation Not on file documented as of this encounter Miscellaneous Notes * Cerner Conversion Note - Historical ProviderMD - 07/31/2019 10:00 PM CHIEF ENGINEER'S HELPER Pain Assessment Entered On: 08/01/2019 4:00 EST Performed On: 07/31/2019 22:06 EST by Cathie Lundy RN Intervention Information: acetaminophen Performed by Cathie Lundy RN on 07/31/2019 21:06:00 EST acetaminophen,1000mg Oral Pain Assessment Pain Assessment : Follow-up assessment Pain Scale Goal : 5 Pain Scale Used : 0-10 Scale Pain Improved by Intervention : Yes Cathie Lundy RN - 08/01/2019 3:59 EST Pain Scale Intensity : 2 Cathie Lundy RN - 08/01/2019 3:59 EST Image 4 - Images currently included in the form version of this document have not been included in the text rendition version of the form. documented in this encounter Plan of Treatment Not on file documented as of this encounter Visit Diagnoses Not on filedocumented in this encounter
--- OUTSIDE RECORDS SUMMARY | 2025-01-23 08:36 | XMS_ITS | Encounter Summary ---
Author Organization [employer] iatives Address [address] [place] [address] Care Team Providers Care Continuous Process Rotary Drum Tanner Name Role Phone Unavailable Primary Care Provider Unavailabl e Encounter Details Date Type Department Care Team (Late st Contact Info) Description 07/31/2019 Transcribed Document [facility] [place] [facility] [place] [address] ProviderSonia MD [address] [place], [place] [phone] Social History Tobacco Use Types Packs/Day Years Used Date Smoking Tobacco: Never Assessed Comments Unknown Sex and Gender Information Value Date Recorded Sex Assigned at Not on file Legal Sex Female 1:42 PM CDT Gender Identity Not on file Sexual Orientation Not on file documented as of this encounter Miscellaneous Notes * Cerner Conversion Note - Historical ProviderMD - 07/31/2019 6:00 AM AUTOMOTIVE MAINTENANCE TECHNICIAN Pain Assessment Entered On: 07/31/2019 8:48 EST Performed On: 07/31/2019 9:10 EST by Trina Adorno RN Intervention Information: acetaminophen Performed by Cathie Lundy RN on 07/31/2019 08:10:00 EST acetaminophen,1000mg Oral Pain Assessment Pain Assessment : Follow-up assessment Pain Scale Goal : 5 Pain Improved by Intervention : Yes Trina Adonro RN - 07/31/2019 8:48 EST documented in this encounter Plan of Treatment Not on file documented as of this encounter Visit Diagnoses Not on filedocumented in this encounter
--- OUTSIDE RECORDS SUMMARY | 2025-01-23 08:36 | XMS_ITS | Encounter Summary ---
Author Organization [employer] iatives Address [address] [place] [address] Care Team Providers Care Mechatronics Engineer Name Role Phone Unavailable Primary Care Provider Unavailabl e Encounter Details Date Type Department Care Team (Late st Contact Info) Description 07/26/2019 Transcribed Document [facility] [place] [facility] [place] [address] ProviderSonia MD [address] [place], [place] [phone] Social History Tobacco Use Types Packs/Day Years Used Date Smoking Tobacco: Never Assessed Comments Unknown Sex and Gender Information Value Date Recorded Sex Assigned at Not on file Legal Sex Female 1:42 PM CDT Gender Identity Not on file Sexual Orientation Not on file documented as of this encounter Miscellaneous Notes * Cerner Conversion Note - Historical ProviderMD - 07/26/2019 5:10 PM CELEBRITY CHEF ENTREPRENEUR MEDIA PERSONALITY Event Note Entered On: 07/26/2019 17:11 EST Performed On: 07/26/2019 17:10 EST by Jennifer Coleman RN Event Note Event Date/Time : 07/26/2019 8:06 EST Event Location : Assigned room Event Details : Nursing assessment additional narrative Description of Event : Patient states IV came out 1 day ago and no longer needs. Refuses IV placement at this time. Jennifer Coleman RN - 07/26/2019 17:10 EST documented in this encounter Plan of Treatment Not on file documented as of this encounter Visit Diagnoses Not on filedocumented in this encounter
--- OUTSIDE RECORDS SUMMARY | 2025-01-23 08:37 | XMS_ITS | Encounter Summary ---
Author Organization [employer]atives Address [address] [place] [address] Care Team Providers Care Clockmaker Name Role Phone Unavailable Primary Care Provider Unavailabl e Encounter Details Date Type Department Care Team (Late st Contact Info) Description 07/22/2019 Transcribed Document [facility] [place] [facility] [place] [address] ProviderSonia MD [address] [place], [place] [phone] Social History Tobacco Use Types Packs/Day Years Used Date Smoking Tobacco: Never Assessed Comments Unknown Sex and Gender Information Value Date Recorded Sex Assigned at Not on file Legal Sex Female 1:42 PM CDT Gender Identity Not on file Sexual Orientation Not on file documented as of this encounter Miscellaneous Notes * Cerner Conversion Note - Historical ProviderMD - 07/22/2019 11:20 AM CDA TEACHER Pain Assessment Entered On: 07/23/2019 12:22 EST Performed On: 07/23/2019 9:42 EST by Aimee Willis RN Intervention Information: oxyCODONE Performed by Aimee Willis RN on 07/23/2019 08:42:00 EST oxyCODONE,10mg Oral,Pain (Mild 1-3) Pain Assessment Pain Assessment : Follow-up assessment Pain Scale Goal : 5 Pain Scale Used : 0-10 Scale Pain Improved by Intervention : Yes Aimee Willis RN - 07/23/2019 12:22 EST Pain Scale Intensity : 6 Aimee Willis RN - 07/23/2019 12:22 EST Image 4 - Images currently included in the form version of this document have not been included in the text rendition version of the form. documented in this encounter Plan of Treatment Not on file documented as of this encounter Visit Diagnoses Not on filedocumented in this encounter
--- OUTSIDE RECORDS SUMMARY | 2025-01-23 08:37 | XMS_ITS | Encounter Summary ---
Author Organization [employer] i[employer] Address [address] [place] [address] Care Team Providers Care Electrician Third Name Role Phone Unavailable Primary Care Provider Unavailabl e Encounter Details Date Type Department Care Team (Late st Contact Info) Description 07/23/2019 Transcribed Document [facility] [place] [facility] [place] [address] ProviderSonia MD [address] [place], [place] [phone] Social History Tobacco Use Types Packs/Day Years Used Date Smoking Tobacco: Never Assessed Comments Unknown Sex and Gender Information Value Date Recorded Sex Assigned at Not on file Legal Sex Female 1:42 PM CDT Gender Identity Not on file Sexual Orientation Not on file documented as of this encounter Miscellaneous Notes * Cerner Conversion Note - Historical ProviderMD - 07/23/2019 2:00 AM WORKPLACE REHABILITATION OFFICER Working Manager Details Entered On: 07/23/2019 1:05 EST Performed On: 07/23/2019 2:00 EST by DANTE MASCORRO, Micromatic Hone Operator-Nursing Order Details Transport Mode Order Detail : Bed (including specialty) Isolation Precautions Order Detail : Standard Precautions Order Detail : 0 IV Order Detail : 1 Oxygen Order Detail : 1 Nurse Collect Order Detail : 0 Lift/Transfer : Moderate assist Central Line Order Detail : No Room Service : Appropriate Arterial Line : No DANTE MASCORRO, Micromatic Hone Operator-Nursing - 07/23/2019 1:05 EST documented in this encounter Plan of Treatment Not on file documented as of this encounter Visit Diagnoses Not on filedocumented in this encounter
--- OUTSIDE RECORDS SUMMARY | 2025-01-23 08:37 | XMS_ITS | Encounter Summary ---
Author Organization [employer] iatives Address [address] [place] [address] Care Team Providers Care Emt P Name Role Phone Unavailable Primary Care Provider Unavailabl e Encounter Details Date Type Department Care Team (Late st Contact Info) Description 08/01/2019 Transcribed Document [facility] [place] [facility] [place] [address] ProviderSonia MD [address] [place], [place] [phone] Social History Tobacco Use Types Packs/Day Years Used Date Smoking Tobacco: Never Assessed Comments Unknown Sex and Gender Information Value Date Recorded Sex Assigned at Not on file Legal Sex Female 1:42 PM CDT Gender Identity Not on file Sexual Orientation Not on file documented as of this encounter Miscellaneous Notes * Cerner Conversion Note - Historical ProviderMD - 08/01/2019 5:00 AM PROGRAM CHECKER Chart Check - Review Order Profile Entered On: 08/01/2019 4:02 EST Performed On: 08/01/2019 5:00 EST by Cathie Lundy RN Chart Check Powerplans Initiated/Discontinued as Appropriate : Yes All Active Orders Reviewed : Yes Cathie Lundy RN - 08/01/2019 4:02 EST documented in this encounter Plan of Treatment Not on file documented as of this encounter Visit Diagnoses Not on filedocumented in this encounter
--- OUTSIDE RECORDS SUMMARY | 2025-01-23 08:37 | XMS_ITS | Encounter Summary ---
Author Organization [employer] Address [address] [place] [address] Care Team Providers Care Collections And Archives Director Name Role Phone Unavailable Primary Care Provider Unavailabl e Encounter Details Date Type Department Care Team (Late st Contact Info) Description 07/11/2019 Transcribed Document [facility] [place] Medicine [facility] [place] [address] ProviderSonia MD [address] [place] [phone] Social History Tobacco Use Types Packs/Day Years Used Date Smoking Tobacco: Never Assessed Comments Unknown Sex and Gender Information Value Date Recorded Sex Assigned at Not on file Legal Sex Female 1:42 PM CDT Gender Identity Not on file Sexual Orientation Not on file documented as of this encounter Miscellaneous Notes * Cerner Conversion Note - Sonia ProviderMD - 07/11/2019 9:00 AM BROOM MAKER Orthopedic Nurse Navigator Entered On: 07/11/2019 12:43 EST Performed On: 07/11/2019 9:00 EST by Ana Call Nurse RN Orthopedic Nurse Navigator Assessment Attended Joint Academy : Yes Joint AcademyType : In person Joint Academy Date : 07/11/2019 EST Joint Building Services Supervisor Attended Academy : Yes Joint Building Services Supervisor Name : Jose Frank [phone] Type of Surgery : Anterior Hip Replacement, Right Does Patient Have a Walker? : Yes Patient Completed RAPT Score : 8 Joint Navigator Assessment Note : According to the RAPT Score, additional intervention to discharge directly home. Pt indicates leg weakness. Pt indicates she wants OP and [id number]. Ana Call Nurse RN - 07/11/2019 12:38 EST Teaching/Learning Assessment Barriers To Learning : None evident Individuals Taught : Patient, Spouse Readiness to Learn : Cooperative Baseline Knowledge of Topic : None Readiness to Learn : Demonstration, Explanation, Printed materials, Teach back method, Video/Educational TV Ana Call Nurse RN - 07/11/2019 12:38 EST Education Topics, Orthopedic Pre-Op Ortho Pre-Op Education Grid Ed-Assistive Devices : Verbalizes understanding Blood Donation : Verbalizes understanding Continuous Passive Motion : Verbalizes understanding DVT Prophylaxis : Verbalizes understanding Family Instructions : Verbalizes understanding Herbs/Supplement Instructions : Verbalizes understanding Hip Precautions : Verbalizes understanding Laboratory Studies : Verbalizes understanding Medication Instructions : Verbalizes understanding NPO : Verbalizes understanding Ed-Occupational Therapy : Verbalizes understanding Pain Management : Verbalizes understanding Physical Prep : Verbalizes understanding Physical Therapy : Verbalizes understanding Plan of Care : Verbalizes understanding Positioning : Verbalizes understanding Post-op Activity/Exercise Regimen : Verbalizes understanding Postoperative Home Needs : Verbalizes understanding Post-operative Monitoring : Verbalizes understanding Post-Op Orthopedic Equipment : Verbalizes understanding Procedure Information : Verbalizes understanding Respiratory Care : Verbalizes understanding Surgical Site : Verbalizes understanding Tubes/Drains/IV's : Verbalizes understanding Turn/Cough/Deep Breathe : Verbalizes understanding Weight Bearing : Verbalizes understanding Ed-Orthopedic Pre-Op, Other : Verbalizes understanding Ana Call Nurse RN - 07/11/2019 12:38 EST Education Topics, Orthopedic Devices Ortho Devices Education Grid Ambulatory Devices : Verbalizes understanding Elevate Extremity : Verbalizes understanding Isometric Exercises : Verbalizes understanding Mobility : Verbalizes understanding Pain Management : Verbalizes understanding Positioning : Verbalizes understanding Purpose : Verbalizes understanding Reportable Symptoms : Verbalizes understanding Rest : Verbalizes understanding ROM Exercise : Verbalizes understanding Safety : Verbalizes understanding Self Care : Verbalizes understanding Skin Care : Verbalizes understanding Ana Call Nurse RN - 07/11/2019 12:38 EST documented in this encounter Plan of Treatment Not on file documented as of this encounter Visit Diagnoses Not on filedocumented in this encounter
--- OUTSIDE RECORDS SUMMARY | 2025-01-23 08:37 | XMS_ITS | Encounter Summary ---
Author Organization [employer] Address [address] [place] [address] Care Team Providers Care Incinerator Operator Name Role Phone Unavailable Primary Care Provider Unavailabl e Encounter Details Date Type Department Care Team (Late st Contact Info) Description 07/22/2019 Transcribed Document [facility] [place] [facility] [place] [address] ProviderSonia MD [address] [place] [id number] Social History Tobacco Use Types Packs/Day Years Used Date Smoking Tobacco: Never Assessed Comments Unknown Sex and Gender Information Value Date Recorded Sex Assigned at Not on file Legal Sex Female 1:42 PM CDT Gender Identity Not on file Sexual Orientation Not on file documented as of this encounter Miscellaneous Notes * Cerner Conversion Note - Sonia ProviderMD - 07/22/2019 8:36 AM ORDER PULLER Patient: SANDIE FRANK Age: 63 Years Sex: Female : 1955 Discharge Disposition Ortho Discharge Summary Addendum Discharge: Home Procedure: Right ATHA Complications: None DVT Prophylaxis: Aspirin 81 mg tabs, 1 BID for 45 days. Script written, on chart WB Status: WBAT F/U in clinic 6 weeks Additional Instructions: Must walk with walker for 1st 2 weeks post op to decrease risk of post op femur fracture. Discharge Instructions: 1)Elevate the affected knee and the entire lower extremity on 2 or 3 pillows while sleeping at night for the first 6-8 weeks after surgery in order to help combat swelling in the lower extremities. 2) The patient may shower on the 3rd day after surgery but must keep the wound or dressing completely dry until 10 days postoperatively using glad press and seal. 3)The current dressing may be removed on the 7th day after surgery and the incision may remain uncovered if it is completely dry. 4) Call for wound drainage or excessive redness that is present beyond 10 days after surgery. 5) The patient may progress from a walker to crutches to a cane to no support at the discretion of the therapist after 2 weeks. The patient should not progress to the next level until they are walking without a limp at the previous level. 6) Percocet will be used for postoperative pain control and should be weaned as the patient can tolerate. 7) Place pillow under operative thigh to keep hip flexed while sleeping. 8) The patient will be on blood thinner after surgery, ECASA 81 mg po BID. This blood thinner should be used for 45 days. It may be stopped at the discretion of the surgeon if wound problems develop. Bilateral CALIXTO hose are to be worn daily for DVT prophylaxis. You may remove these for daily skin inspections, but otherwise these are to be worn at all times. Do not start or stop anticoagulation without discussing with Dr. Newton first Discharge Medications albuterol 2.5 mg/3 mL (0.083%) inhalation solution 2.5 mg = 3 mL, PRN, Inhalation, Q4H alendronate 70 mg, Oral, Weekly Alrex 0.2% ophthalmic suspension 1 Drop, Eyes Both, BID azelastine 205.5 mcg/inh (0.15%) nasal spray 2 [place], PRN, Nasal, BID biotin 5 mg, Oral, [...] 50,000 Int Units = 1 Cap, Oral, [id number] donepezil 23 mg, Oral, Daily famotidine 40 [...] Vitamin D3 2,000 Int Units, Oral, Daily ASA 81 mg Tabs, 1 PO BID Oxycodone 10 mg tabs, 1-2 q4-6h PRN Dilaudid 2mg tabs, 1-2 PO Q6H PRNpain, Rescue Pain Tylenol 1000mg TID Electronically signed by Ivelisse Camargo Conversion Junior Manufacturing Engineer Cerner at 11/19/2022 8:22 PM CDT documented in this encounter Plan of Treatment Not on file documented as of this encounter Visit Diagnoses Not on filedocumented in this encounter
--- OUTSIDE RECORDS SUMMARY | 2025-01-23 08:37 | XMS_ITS | Data Portability ---
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 She is undergoing rehab at [facility] and she is scheduled to go [...] surgery again. She is now in a care home. She continues to have issues with spasms [...] follow. Since the patient is in a care home and is not ambulatory when she goes home we will seek approval for [facility] home health refill as the patient has great difficulty in getting to the clinic. abux Not available 06/27/2024 18:32:52 11/23/2024 11/23/2024 This patient continues with home physical therapy. She continues to recover from her back surgery. We have followed up on notes from neurosurgery.She continues to have pain down her legs. She has been on gabapentin previously however at some point she did have side effects. We will restart gabapentin at 100 mg 3 times a day to see if this will help with her neuropathic pain down her legs. She is also on oral baclofen. She is taking 10 mg tablets of baclofen 4 times a day. She is having GI upset with the baclofen and would like to add it to her pump. We have talked to her at home health refills nurse about adding it to her pump. We will plan on adding baclofen to her pump at 200 mcg/mL. This will give her 100 mcg/day of intrathecal baclofen. She is to discontinue her oral baclofen at her next pump refill. She is scheduled for refill on December 01. Her low reservoir alarm is 11/30. Her pump refill nurse is aware.We will send her in gabapentin 100 mg 3 times a day. Her Romeo and drug screen are all appropriate. We have also talked to her home health nurse. Will follow-up with her in 3 months to reassess her symptomology unless she needs us before then. Patient underwent updated drug screen in office today. A screen and reflex to confirmation was ordered as random testing at random intervals based on medical necessity guidance criteria. Urine drug screen is needed to verify patient's compliance with the pain contract, this will be ordered due to treatments of chronic pain with a potentially abused medication. [email or web address] Not available 11/25/2024 15:58:53 12/23/2024 12/23/2024 This patient is here for adjustment of her intrathecal hydromorphone/roni lofen pain pump. She continues to have some pain and spasms of her legs. She does continue to take her oral baclofen. We did increase her today to 12 mg/day of intrathecal hydromorphone/roni lofen. She is scheduled for refill by [facility] home health refill on January 01. She is also on gabapentin 100 mg 3 times a day. She does have refills of this medication already. We will talk to her home health refill nurse and increase her baclofen concentration to 600 mcg/mL with hydromorphone 20 mg/mL at her next refill. Will follow-up with her in 1 month to assess efficacy of these changes. Will reevaluate symptoms at that time. abux Not available 12/23/2024 12:43:54 01/19/2025 01/19/2025 This patient is doing much better after adding baclofen and an increase concentration to her intrathecal infusion. This was done by the [facility] home health refill nurse. She continues on gabapentin 100 mg 3 times a day. She does have refills on this medication. She is having some issues with constipation. She was tried on Trulicity which is helping however we did decrease her pump 8% today. She is scheduled for refill at the end of the month. We will communicate to our [facility] home health refill nurse to decrease her again at her refill. Will follow-up on her side effects and constipation symptoms. Once we get to a level where there is no side effects then we may increase her concentration of baclofen if needed. abux Not available 01/19/2025 18:25:57 Plan of Treatment Reminders Order Date Submit Date Provider Last Modified By Organization Details Last Modified Time Details Appointments Follow Up 2024 10:00A M Sagar Kidd MD Not available Not available Not available Lab None recorded. Referral None recorded. Procedures intrathec al pump adjustmen t (PROC) 2024 025 [email or web address] Not available 01/19/2025 18:26:12 intrathec al pump adjustmen t (PROC) 2024 025 [email or web address] Not available 12/27/2024 19:18:45 intrathec al pump refill (PROC) 2023 024 [email or web address] Not available 06/28/2024 09:56:38 intrathec al pump refill (PROC) 2023 024 [email or web address] Not available 05/16/2024 10:53:42 Surgeries None recorded. Imaging None recorded. Medication Orders gabapenti n 100 mg capsule 2024 025 [facility], [address], [address], 11/23/2024 14:14:23 Patient TargetsNo targets recorded. Patient InstructionsNo instructions recorded. Reason for Referral None Reported. Problems Name Problem SNOMED Code Status Onset Date Resolution Date Notes Provider Name and Address Organization Details Recorded Time History of lumbar fusion 5277642032808 6 Active 2023 Sagar Kidd MD [address], [address], [place] [facility] 4 09:30:12 Lumbar post-christopher ctomy syndrome 055095100 Active 2022 Sagar Kidd MD [address], [address], [place] [facility] 3 12:42:22 Lumbar radiculopat 318156517 Active 2022 Sagar Kidd MD [address] [facility],[address], [address], [place] [facility] 3 12:42:23 Degeneratio n of lumbar interverteb ral disc 37135343 Active 2022 Sagar Kidd MD [address] [facility],[address], [address], [place] [facility] 3 12:42:24 Problem Notes None recorded. Procedures Surgical History Date Name Laterality Status Provider Name and Address Organization Details Recorded Time 01/20/20 PUMP ADJUSTMENT completed Sagar Kidd MD [address] [facility],[address], [address], [place] [facility] 01/19/2025 18:24:49 12/24/19 25 PUMP ADJUSTMENT completed Sagar Kidd MD [address] [facility],[address], [address], [place] [facility] 12/23/2024 12:42:44 11/24/19 25 PUMP ADJUSTMENT completed Sagar Kidd MD [address] [facility],[address], [address], [place] [facility] 11/23/2024 14:01:17 06/27/20 24 Pump Refill completed Sagar Kidd MD [address] [facility],[address], [address], [place] [facility] 06/27/2024 18:29:09 05/12/20 24 Pump Refill completed Sagar Kidd MD [address] [facility],[address], [address], [place] [facility] 05/12/2024 22:17:49 12/30/19 24 PUMP ADJUSTMENT completed Sagar Kidd MD [address] [facility],[address], [address], [place] [facility] 12/30/2023 09:48:52 11/12/19 24 PUMP ADJUSTMENT completed Sagar Kidd MD [address] [facility],[address], [address], [place] [facility] 11/12/2023 09:35:32 11/12/19 24 Caudal Epidural Steroid Injection Under Fluoroscopy completed Sagar Kidd MD [address] [facility],[address], [address], [place] [facility] 11/12/2023 09:34:52 10/29/19 24 PUMP ADJUSTMENT completed Sagar Kidd MD [address], [address], [place] [facility] 10/29/2023 22:42:43 10/23/19 24 PUMP ADJUSTMENT completed Sagar Kidd MD [address],[facility], [place], [address], [place] [facility] 10/25/2023 17:41:36 10/15/19 24 Pump Refill completed Sagar Kidd MD [address], [place], [address], [place] [facility] 10/15/2023 13:13:48 10/07/19 24 PUMP ADJUSTMENT cancelled CHRISTA COREY [place] [facility] 10/05/2023 07:33:42 09/24/19 24 PUMP ADJUSTMENT completed Sagar Kidd MD [address],[facility], [place], [address], [place] [facility] 09/24/2023 18:59:17 09/09/19 24 PUMP ADJUSTMENT completed Sagar Kidd MD [address] ,[place] [address], [place], [address], [place] [facility] 09/09/2023 22:00:08 09/09/19 24 Lumbar MILDRED: Interlaminar completed Sagar Kidd MD [address],[facility], [place], [address], [place] [facility] 09/09/2023 21:59:32 08/27/19 24 PUMP ADJUSTMENT completed Sagar Kidd MD [address],[facility], [place], [address], [place] [facility] 08/27/2023 10:34:46 07/31/20 23 PUMP ADJUSTMENT completed Sagar Kidd MD [address] [place] [address], [address], [place] [facility] 07/31/2023 14:28:40 07/31/20 23 Diagnostic SI Joint Injection Under Fluoroscopy completed Sagar Kidd MD [address],[facility], [place], [address], [place] [facility] 07/31/2023 14:28:03 07/16/20 23 Pump Refill completed Sagar Kidd MD [address],[facility], [place], [address], [place] [facility] 07/16/2023 19:03:50 05/26/20 23 Pump Refill cancelled CHRISTA COREY [place] [facility] 05/19/2023 11:48:31 04/30/20 23 Pump Refill completed Sagar Kidd MD [address], [place], [address], [place] [facility] 04/30/2023 09:35:06 04/23/20 23 SCS Leads Removal cancelled CHRISTA COREY [place] [facility] 04/17/2023 08:39:13 04/16/20 23 SCS Leads Removal completed Sagar Kidd MD [address], [place], [address], [place] [facility] 04/17/2023 00:35:18 04/10/20 23 SCS Trial completed Sagar Kidd MD [address] [facility], [place], [address], [place] [facility] 04/10/2023 12:39:45 Imaging Results None recorded. Procedure Notes None recorded. Medical Equipment None Reported. Allergies Allergen ID Allergen Name Allergen Category Reaction Reaction Severity Criticality Documentation Date Start Date Code Code System Note Provider Name and Address Organization Details Recorded Time 3599 cephalexi n medicatio n Not available Not [...] Not available Not available Not available 04/10/2023 78975 1 RxNorm Debby Flowers null, [place] [facility] 3 08:40:45 3603 Keflex medicatio n Not available Not available Not available 04/10/202321373 7 RxNorm Debby Flowers null, [place] [facility] 3 08:40:53 3604 Levaquin medicatio n Not available Not available Not available 04/10/202339538 2 RxNorm Debby Flowers null, [place] [facility] 3 08:41:03 Medications Name Sig Start Date Stop Date Status Note LastModified by Organization Details LastModified Time DILAUDID 20 DISPENSE IN 20 ML FOR INTRATHE PAT INFUSION 2024 active Not Available Not Available Not Avai lable dilaudid 20/baclof en 200 DISPENSE IN 20 ML FOR INTRATHE PAT INFUSION 01/05 completed adding Baclofen to IT therapy Not Available Not Available Not Available DILAUDID [...] 5 dispense 20ml to infuse through intrathe apt pump 07/16 completed Not Available Not Available [...] change Not Available Not Available Not Available dilaudid 20/baclof en 600 dilute in 20 ml saline for intrathe pat infusion 2024 active Not Available Not Available Not Avai lable DILAUDID 20 DISPENSE IN 20 ML FOR INTRATHE PAT INFUSION 2023 active Not Available Not Available Not Avai lable DILAUDID 20 DISPENSE IN 20 ML FOR INTRATHE PAT INFUSION 01/05 completed concentr ation change Not Available Not [...] Available Not Available Not Avai lable dilaudid 20/baclof en 600 dilute in 20 ml saline for intrathe pat infusion 2024 active Not Available Not Available Not [...] tablet every 72 hours by oral route. 12/23 completed Not Available Not Available Not Available benzonata te 200 mg capsule TAKE [...] BY MOUTH EVERY 8 HOURS NEEDED FOR 10 DAYS active Not Available Not [...] doxycycli ne monohydra te 100 mg tablet 12/23 completed Not Available Not Available Not Available Euthyrox [...] completed Not Available Not Available Not Available prednisol one acetate 1 % eye drops,juan pension INSTILL 1 DROP INTO EACH EYE THREE TIMES DAILY FOR 7 DAYS THEN 1 DROP TWICE DAILY FOR 7 DAYS, THEN 1 DROP EVERY MORNING FOR 7 DAYS active Not Available Not Available No t Available methocarb mitchell 750 mg tablet active Not Available Not Available No t Available sodium bicarbona te 650 mg tablet TAKE 1 TABLET BY MOUTH TWICE DAILY active Not Available Not Available No t Available diazepam 2 mg tablet 12/23 completed Not Available Not Available Not Available baclofen 10 mg tablet TAKE 1 TABLET BY MOUTH 4 TIMES DAILY active Not Available Not Available No t Available benzonata te 100 mg capsule TAKE 1 CAPSULE BY MOUTH THREE TIMES DAILY NEEDED FOR COUGH 04/13 completed [...] Not Available gabapenti n 100 mg capsule TAKE 1 CAPSULE BY MOUTH THREE TIMES DAILY active Not Available Not Available No t Available hydrocort isone 10 mg tablet 04/13 [...] Not Available Not Available No t Available cefdinir 300 mg capsule TAKE 1 CAPSULE BY MOUTH TWICE DAILY FOR 5 DAYS 12/23 completed Not Available Not Available Not Available fluticaso ne propionat e 50 mcg/actua [...] TAB TOMORROW UPON AWAKING PRIOR TO SURGERY 12/23 completed Not Available Not Available Not Available amoxicill in 875 mg-potass ium clavulana [...] TABLET BY MOUTH ONCE DAILY AT NIGHT 12/23 completed Not Available Not Available Not Available lubiprost one 24 mcg capsule 04/13 [...] 300 mg/2 mL subcutane ous pen injector 12/23 completed Not Available Not Available Not Available Paxlovid 150 mg-100 mg tablets in a dose pack (Moderate Renal Dose) TAKE 2 TABLETS BY MOUTH TWICE DAILY FOR 5 DAYS 04/13 completed Not Available Not Available Not Available Vitals Date Recorded Body height Body mass index (BMI) Body weight Heart rate Oxygen saturation Oxygen saturation in Arterial blood by Pulse oximetry Systolic blood pressure Diastolic blood pressure Provider Name and Address Organization Details Last Updated DateTime 5 170.18 cm 30.5 kg/m2 71546.5 1 g 78 /min 97 % 97 % 118 mm[Hg] 84 mm[Hg] CHRISTA COREY [place] [facility] 5 10:51:46 Date Recorded Body height Body mass index (BMI) Body weight Heart rate Oxygen saturation Oxygen saturation in Arterial blood by Pulse oximetry Systolic blood pressure Diastolic blood pressure Provider Name and Address Organization Details Last Updated DateTime 5 170.18 cm 30.5 kg/m2 02650.5 1 g 78 /min 97 % 97 % 118 mm[Hg] 82 mm[Hg] CHRISTA COREY [place] [facility] 5 08:34:41 Date Recorded Body height Heart rate Respiratory rate Body mass index (BMI) Body weight Oxygen saturation Oxygen saturation in Arterial blood by Pulse oximetry Systolic blood pressure Diastolic blood pressure Provider Name and Address Organization Details Last Updated DateTime 5 170.18 cm 78 /min 18 /min 30.5 kg/m2 99028.5 1 g 97 % 97 % 118 mm[Hg] 82 mm[Hg] Darlene Schroeder [place] [facility] 5 09:23:45 Date Recorded Body height Body mass index (BMI) Body weight Oxygen saturation Oxygen saturation in Arterial blood by Pulse oximetry Heart rate Systolic blood pressure Diastolic blood pressure Provider Name and Address Organization Details Last Updated DateTime 4 170.18 cm 30.5 kg/m2 08570.5 1 g 97 % 97 % 78 /min 118 mm[Hg] 84 mm[Hg] CHRISTA JACOBSS [place] [facility] 4 10:58:32 Social History Question Answer Notes LastModified by Organizat ion Details LastModified Time Tobacco Smoking Status Never Smoker Debby lopez [place] [facility] 04/10/2023 08:42:26 Do You Have An Advance Directive? Yes [email or web address] Information n ot available 04/10/2023 In The 14 Days Before Symptom Onset, Have You Had Close Contact With A Laboratory-confirm ed COVID-19 While That Case Was Ill? No [email or web address] Information n ot available 04/10/2023 In The 14 Days Before Symptom Onset, Have You Had Close Contact With A Person Who Is Under Investigation For COVID-19 While That Person Was Ill? No [email or web address] Information not available 04/10/2023 Have You Been To An Area Known To Be High Risk For COVID-19? No [email or web address] Information not available 04/10/2023 Do You Have A Medical Power Of Clinical Care Leader? No [email or web address] Information not available 04/10/2023 Sex: Female Functional Status Question Answer Note LastModified by Organizat ion Details LastModified Time Do you use any illicit or recreational drugs? No [email or web address] Information not available 04/10/2023 Do you or have you ever used any other forms of tobacco or nicotine? No [email or web address] Information not available 04/10/2023 What is your level of alcohol consumption? Occasional [email or web address] Information not available 04/10/2023 Are you currently employed? No [email or web address] Information not available 04/10/2023 Mental Status None recorded. Family History Nothing Reported. Medical History Condition Response Coronary Artery Disease N Gout N Head Trauma/Injury N Hernia N Thyroid Problems Y Depression Y COPD N Anemia Y Ulcers N Heart Attack (LA) N Diabetes N Anxiety Disorder Y Bleeding Disorder N Arthritis Y Tuberculosis N AIDS/HIV N Acid Reflux (GERD) Y Cancer N Stroke N Asthma Y Substance Abuse N Back Injury N High Cholesterol N Hepatitis N Liver Disease N Heart Disease N Fibromyalgia Y Headaches Y Hypertension N Osteoporosis Y Kidney Disease Y Gynecological HistoryNo gynecological history recorded. Obstetrics History GPAL:G 0 P 0 0 0 0 Past Encounters Encounter ID Performer Location Encounter Start Date Encounter Closed Date Diagnosis/Indication Diagnosis SNOMED-CT Code Diagnosis ICD10 Code Diagnosis Note [id number] Sagar Kidd MD [address] [place] [address] [place] [address] 04/10/2023 08:37:42 04/10/2023 11:25:37 Degeneration of lumbar intervertebral disc 29617368 M51.36 Lumbar radiculopathy 128 511328 M54.16 Lumbar post-laminectomy syndrome 972038521 M96.1 Postoperative care 13015 9007 Z48.89 Therapeuti c opioid induced constipation 1850606619 87171 K59.00 [id number] Sagar Kidd MD [address] [place] [address] 3 04/16/2023 10:06:30 04/16/2023 11:05:38 Degeneration of lumbar intervertebral disc 55874493 M51.36 Lumbar radiculopathy 128 595042 M54.16 Lumbar post-laminectomy syndrome 782728418 M96.1 Postoperative care 54263 9007 Z48.89 Therapeuti c opioid induced constipation 2601651832 73223 K59.00 Sagar Kidd MD [address] [place] [address] 3 04/23/2023 11:53:57 04/23/2023 12:21:34 Degeneration of lumbar intervertebral disc 99319248 M51.36 Lumbar post-laminectomy syndrome 150907099 M96.1 Lumbar radiculopathy 128 155057 M54.16 Sagar Kidd MD [address] [place] [address] [place] [address] 3 04/30/2023 08:54:17 04/30/2023 09:31:42 Degeneration of lumbar intervertebral disc 30729721 M51.36 Lumbar post-laminectomy syndrome 567370011 M96.1 Lumbar radiculopathy 128 313334 M54.16 [id number] Sagar Kidd MD [address] [place] [address] 3 07/16/2023 13:30:12 07/16/2023 15:00:24 Lumbar radiculopathy 188211157 M54.16 Lumbar post-laminectomy syndrome 757334470 M96.1 Degenerati on of lumbar intervertebral disc 87480376 M51.36 Inflammati on of sacroiliac joint 17924090 M46.1 [id number] Sagar Kidd MD [address] [place] [address] 3 07/31/2023 13:25:28 07/31/2023 14:29:22 Degeneration of lumbar intervertebral disc 50871957 M51.36 Lumbar post-laminectomy syndrome 723356009 M96.1 Lumbar radiculopathy 128 127387 M54.16 Closed fra cture of right wrist 3334759563 1778882 S62.91XD [id number] Sagar Kidd MD [address] [place] [address] 3 08/27/2023 08:52:34 08/27/2023 10:19:58 Lumbar radiculopathy 433619937 M54.16 Lumbar post-laminectomy syndrome 880152725 M96.1 Degenerati on of lumbar intervertebral disc 99866758 M51.36 [id number] Sagar Kidd MD [address] [place] [address] 3 09/09/2023 08:32:51 09/09/2023 10:39:27 Lumbar radiculopathy 456884004 M54.16 Lumbar post-laminectomy syndrome 903428310 M96.1 Degenerati on of lumbar intervertebral disc 10630356 M51.36 [id number] Sagar Kidd MD [address] [place] [address] 3 09/24/2023 08:54:15 09/24/2023 09:43:24 Lumbar radiculopathy 497527435 M54.16 Lumbar post-laminectomy syndrome 664345903 M96.1 Degenerati on of lumbar intervertebral disc 62587717 M51.36 [id number] Sagar Kidd MD [address] [place] [address] 3 10/15/2023 08:13:21 10/15/2023 09:37:25 Lumbar radiculopathy 391976880 M54.16 Lumbar post-laminectomy syndrome 111668436 M96.1 Degenerati on of lumbar intervertebral disc 44588898 M51.36 [id number] Sagar Kidd MD [address] [place] [address] 3 10/23/2023 10:15:49 10/23/2023 12:24:41 Lumbar radiculopathy 654269559 M54.16 Lumbar post-laminectomy syndrome 244458748 M96.1 Degenerati on of lumbar intervertebral disc 72543168 M51.36 [id number] Sagar Kidd MD [address] [place] [address] 3 10/29/2023 08:19:00 10/29/2023 09:36:11 Lumbar radiculopathy 878560387 M54.16 Lumbar post-laminectomy syndrome 764728150 M96.1 Degenerati on of lumbar intervertebral disc 30555189 M51.36 [id number] Sagar Kidd MD [address] [place] [address] 3 11/12/2023 08:16:12 11/12/2023 09:07:57 Lumbar radiculopathy 973165756 M54.16 Degenerati on of lumbar intervertebral disc 59984586 M51.36 Lumbar post-laminectomy syndrome 785441020 M96.1 [id number] Sagar Kidd MD [address] [place] [address] 3 11/27/2023 08:31:09 11/27/2023 09:36:38 Lumbar radiculopathy 046451579 M54.16 Degenerati on of lumbar intervertebral disc 70000028 M51.36 Lumbar post-laminectomy syndrome 838371771 M96.1 [id number] Sagar Kidd MD [address] [place] [address] 3 12/30/2023 08:08:17 12/30/2023 09:54:07 Lumbar radiculopathy 341052861 M54.16 Lumbar post-laminectomy syndrome 399689537 M96.1 Degenerati on of lumbar intervertebral disc 31885847 M51.36 Lumbar spondylosis 82356 0009 M47.896 Spinal kee nosis of lumbar region 85750297 M48.062 [id number] Sagar Kidd MD [address] [place] [address] 3 01/28/2024 10:32:04 01/28/2024 11:28:08 Lumbar radiculopathy 505963891 M54.16 Lumbar post-laminectomy syndrome 221312658 M96.1 Degenerati on of lumbar intervertebral disc 34643591 M51.36 [id number] Amna Wood NP [address] [place] [address] 3 03/01/2024 14:56:40 03/01/2024 15:37:21 Lumbar post-laminectomy syndrome 866369085 M96.1 Lumbar radiculopathy 128 705465 M54.16 Degenerati on of lumbar intervertebral disc 14065423 M51.36 [id number] LISY RICHARDSON NP [address] [place] [address] 3 03/17/2024 09:09:34 03/17/2024 10:16:18 Lumbar radiculopathy 071802682 M54.16 Lumbar post-laminectomy syndrome 531039289 M96.1 Degenerati on of lumbar intervertebral disc 91434588 M51.36 [id number] Sagar Kidd MD [address] [place] [address] 3 04/14/2024 09:00:29 04/14/2024 09:36:48 Lumbar post-laminectomy syndrome 307253751 M96.1 Lumbar radiculopathy 128 420298 M54.16 Degenerati on of lumbar intervertebral disc 62926494 M51.36 History of lumbar fusion 6122580862 9106 Z98.1 Long-term current use of opiate analgesic drug 2208037756 45612 Z79.891 [id number] Sagar Kidd MD [address] [place] [address] 3 05/12/2024 10:56:41 05/12/2024 12:53:48 Lumbar radiculopathy 413399759 M54.16 Lumbar post-laminectomy syndrome 751754096 M96.1 Degenerati on of lumbar intervertebral disc 90765852 M51.362 History of lumbar fusion 7362920552 9106 Z98.1 [id number] Sagar Kidd MD [address] [place] [address] 06/27/2024 14:56:46 06/27/2024 16:09:27 Degeneration of lumbar intervertebral disc 15062508 M51.362 History of lumbar fusion 3271003869 9106 Z98.1 Lumbar post-laminectomy syndrome 237351372 M96.1 Lumbar radiculopathy 128 341087 M54.16 Spasm 13691902 R25.2 [id number] Sagar Kidd MD [address] [address] [place] [address] 11/23/2024 10:47:55 11/23/2024 11:38:12 Lumbar post-laminectomy syndrome 244938171 M96.1 Lumbar radiculopathy 128 171232 M54.16 Degenerati on of lumbar intervertebral disc 03377313 M51.362 History of lumbar fusion 6488379697 9106 Z98.1 Long-term current use of opiate analgesic drug 5322604756 72148 Z79.891 Opioid dependence 400909 00 F11.20 [id number] Sagar Kidd MD [address] [place] [address] [place] [address] 12/23/2024 08:32:54 12/23/2024 09:43:59 Lumbar post-laminectomy syndrome 593788654 M96.1 Lumbar radiculopathy 128 069613 M54.16 Degenerati on of lumbar intervertebral disc 55527609 M51.362 Spasm 32361899 M62.838 [id number] Sagar Kidd MD [address] [place] [address] 01/19/2025 09:20:57 01/19/2025 10:19:38 Lumbar radiculopathy 451675037 M54.16 Lumbar post-laminectomy syndrome [id number] M96.1 Degenerati on of lumbar intervertebral disc [id number] M51.362 History of lumbar fusion [id number] 9106 Z98.1 Health Concerns Section Related Observation LastModified by Organization Detai ls LastModified Time None Recorded Concern Status LastModified by Organization Details LastModified Time None Recorded Advance Directives Directive Y: Payers Insurance Date Sequence Insurance Name Policy Number Policy Gibbs Covered Member ID Gibbs Member ID Guarantor Name 01/16/2025 1 [place] Sandie Frank [id number] Sandie Frank 01/22/2025 2 [place] [id number] Jose Frank [id number] Sandie Frank Notes Date Note Type Note Provider Name and Address Organization Details Recorded Time 05/12/2024 text/html Back PainReporte d bypatient.Location: lumbar;pain [...] Prior Imaging:MRI Sagar Kidd MD [address], [address], [place] - [facility] 05/12/2024 22:19:44 11/23/2024 text/html Back PainReporte d bypatient.Location: lumbar;pain radiating to the foot Quality:aching Severity:worsening; pain level 8/10;moderate (5-7);interference with sleep Duration:chronic Context:trauma; prior back [...] Previous Injury:no prior injury to back Prior Imaging:JAMES GOSS [address], [address], [place] - [facility] 11/25/2024 15:58:56 12/23/2024 text/html Back PainReporte d bypatient.Location: lumbar;pain radiating to the foot Quality:aching Severity:worsening; pain level 8/10;moderate (5-7);interference with sleep Duration:chronic Context:trauma; prior back [...] back Prior Imaging:BAMBI Kidd MD [address], [address], [place] - [facility] 12/23/2024 12:45:29 01/19/2025 text/html Back PainReporte d bypatient.Location: lumbar;pain radiating to the foot Quality:aching Severity:worsening; pain level 6/10;moderate (5-7);interference with sleep Duration:chronic Context:trauma; prior back [...] back Prior Imaging:BAMBI Kidd MD [address], [address], [place] - [facility] 01/19/2025 18:26:25 OBGyn Episode No OBEpisode recorded.
--- OUTSIDE RECORDS SUMMARY | 2025-01-23 08:37 | XMS_ITS | Encounter Summary ---
Author Organization [employer] Address [address] [place] [address] Care Team Providers Care Neon Sign Worker Name Role Phone Unavailable Primary Care Provider Unavailabl e Encounter Details Date Type Department Care Team (Late st Contact Info) Description 07/31/2019 Transcribed Document [facility] [place] [facility] [place] [address] ProviderSonia MD [address] [place], [place] [id number] Social History Tobacco Use Types Packs/Day Years Used Date Smoking Tobacco: Never Assessed Comments Unknown Sex and Gender Information Value Date Recorded Sex Assigned at Not on file Legal Sex Female 1:42 PM CDT Gender Identity Not on file Sexual Orientation Not on file documented as of this encounter Miscellaneous Notes * Cerner Conversion Note - Historical ProviderMD - 07/31/2019 2:00 AM PROCESS 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
--- OUTSIDE RECORDS SUMMARY | 2025-01-23 08:37 | XMS_ITS | Encounter Summary ---
Author Organization [employer] Address [address] [place] [address] Care Team Providers Care Flexboard Operator Name Role Phone Unavailable Primary Care Provider Unavailabl e Encounter Details Date Type Department Care Team (Late st Contact Info) Description 06/21/2020 Transcribed Document [facility] [place] [facility] [place] [address] ProviderSonia MD [address] [place], [place] [phone] Social History Tobacco Use Types Packs/Day Years Used Date Smoking Tobacco: Never Assessed Comments Unknown Sex and Gender Information Value Date Recorded Sex Assigned at Not on file Legal Sex Female 1:42 PM CDT Gender Identity Not on file Sexual Orientation Not on file documented as of this encounter Miscellaneous Notes * Cerner Conversion Note - Historical ProviderMD - 06/21/2020 8:30 AM FILING CLERK [facility] PreOp Summary Primary Physician: ANIVAL BROWN MD-GAE Finalized Date/Time: 06/21/20 08:19:35 Pt. Name: SANDIE FRANKO.B./Sex: 1955 Female Med Rec #: [id number] Physician: ANIVAL BROWN MD-GAE Financial #: [id number] Pt. Type: E Room/Bed: EEN/1 Admit/Disch: 06/21/20 06:39:00 - Institution: [facility] PreOp Case Times Entry 1 In Preop 06/21/20 07:45:00 Ready for Holding n/a Room Patient Ready for 06/21/20 08:19:00 Surgery Patient Out of Preop 06/21/20 08:19:00 Patient Out of n/a Holding Room Finalized By: Ana Lima Rn Document Signatures Signed By: Ana Lima Rn 06/21/20 08:19 documented in this encounter Plan of Treatment Not on file documented as of this encounter Visit Diagnoses Not on filedocumented in this encounter
--- OUTSIDE RECORDS SUMMARY | 2025-01-23 08:37 | XMS_ITS | Encounter Summary ---
Author Organization [employer] Address [address] [place] [address] Care Team Providers Care Vice President Sales And Marketing Name Role Phone Unavailable Primary Care Provider Unavailabl e Encounter Details Date Type Department Care Team (Late st Contact Info) Description 08/01/2019 Transcribed Document [facility] [place] [facility] [place] [address] ProviderSonia MD [address] [place], [place] [phone] Social History Tobacco Use Types Packs/Day Years Used Date Smoking Tobacco: Never Assessed Comments Unknown Sex and Gender Information Value Date Recorded Sex Assigned at Not on file Legal Sex Female 1:42 PM CDT Gender Identity Not on file Sexual Orientation Not on file documented as of this encounter Miscellaneous Notes * Cerner Conversion Note - Historical ProviderMD - 08/01/2019 2:46 PM ASSISTANT PROFESSOR OF GEOGRAPHY Patient: SANDIE AMARO Age: 63 Years Sex: Female : 1955 Subjective Patient doing well denies any new complaints, no overnight issues. Vital Signs T: 36.6 ??C TMIN: 36.6 ??C TMAX: 36.7 ??C HR: 65(Monitored) RR: 16 BP: 124/55 SpO2: 98% Oxygen Settings (Last) Oxygen Therapy Mode: Room air (08/01/19 08:21:00) Oxygen Flow Rate: 2 Liter/Min (07/23/19 03:56:00) Intake & Output Totals Last 24 Hours (7a-7a) Input Total: 1.5 mL Output Total: 1050 mL Balance: -1048.5 mL Physical Exam General: Alert and oriented, no acute distress. Respiratory: Respirations are non-labored, Breath sounds are equal, Symmetrical chest wall expansion, No chest wall tenderness. Cardiovascular: Normal rate, Regular rhythm, No murmur. Gastrointestinal: Soft, Non-distended, Normal bowel sounds, No organomegaly, Musculoskeletal: no deformity, active arthritis or joint swelling. Neurologic: Alert, No focal deficits, CN grossly intact. Assessment/Plan 63 years old female, who was admitted for arthroplasty of the right hip, she had worsening respiratory status after surgery, which was managed conservatively with duo nebs and oxygen supplementation. It resolved the patient does have chronic adrenal insufficiency she received stress dose of Solu-Medrol, after surgery, and has been weaned to her chronic dose of 5 mg of hydrocortisone twice a day. The patient had acute kidney injury likely secondary to prerenal cause which has slowly been improving. He still has mild hyponatremia and minimally elevated creatinine of 1.08. Currently waiting for SNF bed we are waiting for approval. S/p Right Total Hip Arthroplasty by Dr. [...] -Incentive Spirometer encouraged, lungs clear on exam CATHLEEN/Hypernatremia: - Creatinine trending down, sodium slightly up encouraged patient to drink free water by mouth as much as she can. We'll recheck in the morning. Asthma, stable - Nebs/Inhalers prn. Seizure Disorder, [...] monitor Resting tremor -Followed by Neurologist at Discharge plan Patient medically ready to be discharged to intermediate facility VTE Prophylaxis - Medical Sequential Compression Device Start: 07/22/19 11:20:00 EST, Bilateral, Length: Knee High, Continuous Order (PEE VILLAR) Medications albuterol 2.5 mg/3 mL (0.083%) inhalation solution, 2.5 mg, Inhalation, Q4H, PRN aspirin, 81 mg= 1 Tab, Oral, BID Benadryl, 25 mg= 1 Tab, Oral, Q4H, PRN budesonide, 0.5 mg= 2 mL, Nebulized Inhalation , BID Colace, 100 mg= 1 Cap, Oral, BID Crestor, 20 mg= 2 Tab, Oral, At Bedtime Cymbalta, 30 mg= 1 Cap, Oral, QPM Cymbalta, 60 mg= 1 Cap, Oral, QAM diphenhydrAMINE, 12.5 mg= 0.5 Tab, Oral, At Bedtime, PRN donepezil, 20 mg= 4 Tab, Oral, Daily Dulcolax Laxative, 10 mg= 1 Supp, Rectal, 1-Time, PRN Flonase, 1 [place], Nostrils Both, BID Florastor, 250 mg= 1 Cap, Oral, Daily gabapentin, 100 mg= 1 Cap, Oral, QPM hydrocortisone, 5 mg= 0.5 Tab, Oral, BID lamoTRIgine, 100 mg= 1 Tab, Oral, BID levothyroxine, 100 mcg= 1 Tab, Oral, Daily Lopressor, 12.5 mg= 0.5 Tab, Oral, BID Melatonin, 9 mg= 3 Tab, Oral, At Bedtime memantine, 10 mg= 2 Tab, Oral, BID miconazole 2% topical powder, 1 Application, Topical, BID montelukast, 10 mg= 1 Tab, Oral, [...] Senokot S, 2 Tab, Oral, At Bedtime Tylenol, 1000 mg= 2 Tab, Oral, Q8H Zofran, 4 mg= 2 mL, IV Push, Q8H, PRN zolpidem, 5 mg= 1 Tab, Oral, At Bedtime, PRN Lab Results Test Name Test Result Date/Time Sodium Level 147 mmol/L (High) 08/01/2019 03:42 EST Potassium Level 4.6 mmol/L 08/01/2019 03:42 EST Chloride Level 112 mmol/L 08/01/2019 03:42 EST Carbon Dioxide Level 31 mmol/L 08/01/2019 03:42 EST Anion Gap 9 08/01/2019 03:42 EST Glucose Level 111 mg/dL (High) 08/01/2019 03:42 EST Blood Urea Nitrogen 13 mg/dL 08/01/2019 03:42 EST Creatinine Level 1.08 mg/dL (High) 08/01/2019 03:42 EST eGFR >60 mL/min/1.73m2 08/01/2019 03:42 EST eGFR NonAfrican 51 mL/min/1.73m2 (Low) 08/01/2019 03:42 EST Bun/Creatinine 12.0 08/01/2019 03:42 EST Calcium Level 9.3 mg/dL 08/01/2019 03:42 EST WBC 5.3 K/uL 08/01/2019 03:42 EST RBC 3.07 Million/uL (Low) 08/01/2019 03:42 EST Hgb 9.5 Gram/dL (Low) 08/01/2019 03:42 EST Hct 29.9 % (Low) 08/01/2019 03:42 EST MCV 97.4 fL (High) 08/01/2019 03:42 EST MCH 30.9 pg 08/01/2019 03:42 EST MCHC 31.8 Gram/dL (Low) 08/01/2019 03:42 EST Platelet Count 194 K/uL 08/01/2019 03:42 EST MPV 9.7 fL 08/01/2019 03:42 EST RDW 14.8 % (High) 08/01/2019 03:42 EST Slide Review No 08/01/2019 03:42 EST Electronically signed by [facility], [facility] Conversion Staff Toxicologist Cerner at 11/19/2022 8:23 PM CDT documented in this encounter Plan of Treatment Not on file documented as of this encounter Visit Diagnoses Not on filedocumented in this encounter
--- OUTSIDE RECORDS SUMMARY | 2025-01-23 08:37 | XMS_ITS | Encounter Summary ---
Author Organization [employer] Address [address] [place] [address] Care Team Providers Care Pickle Cutter Name Role Phone Unavailable Primary Care Provider Unavailabl e Encounter Details Date Type Department Care Team (Late st Contact Info) Description 07/22/2019 Transcribed Document [facility] [place] Medicine [facility] [place] [address] ProviderSonia MD [address] [place], [place] [phone] Social History Tobacco Use Types Packs/Day Years Used Date Smoking Tobacco: Never Assessed Comments Unknown Sex and Gender Information Value Date Recorded Sex Assigned at Not on file Legal Sex Female 1:42 PM CDT Gender Identity Not on file Sexual Orientation Not on file documented as of this encounter Miscellaneous Notes * Cerner Conversion Note - Sonia ProviderMD - 07/22/2019 1:27 PM OBJECT ORIENTED DEVELOPER Treatment Intervention, PT Entered On: 07/27/2019 11:17 EST Performed On: 07/27/2019 8:47 EST by NABEEL العراقي PT General Information, PT Visit Type, PT : Progress Note Patient Orders : Order Date Order [...] PT Treatment Instructions Ordered By: PEE VILLAR MD-ORCarmen 07/22/2019 13:27 PT Additional Treatment Ordered By: COOPER DEVLIN, Physical Therapist 07/23/2019 11:44 PT Evaluation and Treatment Ordered By: PEE VILLAR MD-ORCarmen Active Diagnoses : No Qualifying Diagnoses Therapy Diagnosis, PT : aftercare following R aTHA Admission Date : 07/22/2019 04:50 Co-treated by, PT : Occupational Therapist Assisted by, PT : emergency medical technician/aide Personal Devices : Personal Devices Dentures, upper, Dentures, lower Assistive Devices : Assistive Devices Cane Precautions in Place : Fall prevention measures, high risk NABEEL العراقي, PT - 07/27/2019 11:04 EST General Status Patient Received Status : Supine in bed Treatment Start Time : 07/27/2019 8:47 EST Patient Left Status : Supine in bed RN/PCT Informed Comment : Okay to treat per nurse. Pt agreeable. Treatment End Time : 07/27/2019 9:17 EST Treatment Time : 30 Minute(s) Actual Treatment Time : 31 Minute(s) NABEEL العراقي, PT - 07/27/2019 11:04 EST Edu Topics Physical Therapy Education Grid Bed Mobility Training : Verbalizes understanding, Returns demonstration Role of Physical Therapy : Verbalizes understanding Safety : Verbalizes understanding Therapeutic Exercises : Verbalizes understanding, Returns demonstration Transfer Training : Verbalizes understanding, Returns demonstration NABEEL العراقي, PT - 07/27/2019 11:04 EST Indication Assesessment, PT Physical Therapy Indicated : Yes NABEEL العراقي, PT - 07/27/2019 11:04 EST Plan of Care, PT PT Tx Plan/Goals Established w Patient : Yes NABEEL العراقي, PT - 07/27/2019 11:04 EST Care Home Goals Other PT LTG Grid Goal #1 Goal #2 Goal #3 Goal #4 Other : Pt will participate in therapeutic exercise training and be issued a written HEP in order to increase strength for improved gait and provide carryover into the home environment. Pt will transfer sup/sit and sit/stand with RWx and no more than Ankita to increase safety for mobility at [facility]. Pt will amb at leats 25 feet [...] 07/29/2019 EST 07/29/2019 EST Goal Status : Progressing, continue Progressing, continue Progressing, continue Initial goal NABEEL العراقي, PT - 07/27/2019 11:04 EST NABEEL العراقي, PT - 07/27/2019 11:04 EST NABEEL العراقي, PT - 07/27/2019 11:04 EST NABEEL العراقي, PT - 07/27/2019 11:04 EST Treatment Note Subjective Comment : Pt agreable to POC similar to what she did yesterday. Patient's Response to Treatment : good, better than yesterday, per report Additional Objective Information : Ther act: supine to sit with mod assist of 2, sit to stand with max of 2, stand to sit with mod assist of 1, sit to sup with mod assist of 1. 3 assist present at all times, for safety and support. At times 3 assist required to maintain positions. Rolling with min assist of 2 to left, SBA to right using rail. EOB time 22 minutes, Stance time 90 sec. Ther exs: to address extensor tone in sitting positions that causes pt to fling herself backwards. Pt able to demonstrate some active movement of BLE's to assist with bed mobility. Assessment : Pt exhausted by end of session. Might do better next session to address standing prior to end of session. Knee buckling noted at end of stance time. Pt well-motivated to improve. Pt puts forth lots of energy during session in spite of pain. Pt reports that she is unable to voluntarily control her trunk at any time. NABEEL العراقي, PT - 07/27/2019 11:04 EST Pain Assessment Pain Scaled Used : 0-10 Pain scale Pain Score Pre-Intervention : 7 Pain Score During-Intervention : 8 Pain Score Post-Intervention. : 8 Location : Hip, right Pain Comment : Pt reports that she has been medicated already. NABEEL العراقي, PT - 07/27/2019 11:04 EST Image 1 - Images currently included in the form version of this document have not been included in the text rendition version of the form. Anticipated Discharge Needs, OT/PT Anticipated Discharge to : Rehab, high intensity NABEEL العراقي, PT - 07/27/2019 11:04 EST [facility] Charges PT Therap. Exercise 15 min : 1 PT Ther Activities Ea 15 Min : 1 NABEEL العراقي, PT - 07/27/2019 11:04 EST Electronically signed by Raman, [facility] Conversion Correctional Cook Cerner at 11/21/2022 11:34 AM CDT documented in this encounter Plan of Treatment Not on file documented as of this encounter Visit Diagnoses Not on filedocumented in this encounter
--- OUTSIDE RECORDS SUMMARY | 2025-01-23 08:37 | XMS_ITS | Encounter Summary ---
Author Organization [employer] iatives Address [address] [place] [address] Care Team Providers Care Ladies' Hat Trimmer Name Role Phone Unavailable Primary Care Provider Unavailabl e Encounter Details Date Type Department Care Team (Late st Contact Info) Description 06/21/2020 Transcribed Document [facility] [place] [facility] [place] [facility] [place] [address] ProviderSonia MD [address] [place] [id number] Social History Tobacco Use Types Packs/Day Years Used Date Smoking Tobacco: Never Assessed Comments Unknown Sex and Gender Information Value Date Recorded Sex Assigned at Not on file Legal Sex Female 1:42 PM CDT Gender Identity Not on file Sexual Orientation Not on file documented as of this encounter Miscellaneous Notes * Cerner Conversion Note - Sonia Boogie MD - 06/21/2020 9:01 AM EARTH AUGER OPERATOR Patient Education Materials Follows: Monitored Anesthesia Care, Care After These instructions provide you with information about caring for yourself after your procedure. Your health care provider may also give you more specific instructions. Your treatment has been planned according to current medical practices, but problems sometimes occur. Call your health care provider if you have any problems or questions after your procedure. What can I expect after the procedure? After your procedure, you may: ??? Feel sleepy for several hours. ??? Feel clumsy and have poor balance for several hours. ??? Feel forgetful about what happened after the procedure. ??? Have poor judgment for several hours. ??? Feel nauseous or vomit. ??? Have a sore throat if you had a breathing tube during the procedure. Follow these instructions at home: For at least 24 hours after the procedure: ??? Have a responsible adult stay with you. It is important to have someone help care for you until you are awake and alert. ??? Rest as needed. ??? Do not: ? Participate in activities in which you could fall or become injured. ? Drive. ? Use heavy machinery. ? Drink alcohol. ? Take sleeping pills or medicines that cause drowsiness. ? Make important decisions or sign legal documents. ? Take care of children on your own. Eating and drinking ??? Follow the diet that is recommended by your health care provider. ??? If you vomit, drink water, juice, or soup when you can drink without vomiting. ??? Make sure you have little or no nausea before eating solid foods. General instructions ??? Take agsl-qwm-jyiwwpu and prescription medicines only as told by your health care provider. ??? If you have sleep apnea, surgery and certain medicines can increase your risk for breathing problems. Follow instructions from your health care provider about wearing your sleep device: ? Anytime you are sleeping, including during daytime naps. ? While taking prescription pain medicines, sleeping medicines, or medicines that make you drowsy. ??? If you smoke, do not smoke without supervision. ??? Keep all follow-up visits as told by your health care provider. This is important. Contact a health care provider if: ??? You keep feeling nauseous or you keep vomiting. ??? You feel light-headed. ??? You develop a rash. ??? You have a fever. Get help right away if: ??? You have trouble breathing. Summary ??? For several hours after your procedure, you may feel sleepy and have poor judgment. ??? Have a responsible adult stay with you for at least 24 hours or until you are awake and alert. This information is not intended to replace advice given to you by your health care provider. Make sure you discuss any questions you have with your health care provider. Document Released: 11/09/2016 Document Revised: 10/18/2018 Document Reviewed: 11/09/2016 [employer] Patient Education ? 2020 [employer] Hemorrhoids Hemorrhoids are swollen veins that may develop: ??? In the butt (rectum). These are called internal hemorrhoids. ??? Around the opening of the butt (anus). These are called external hemorrhoids. Hemorrhoids can cause pain, itching, or bleeding. Most of the time, they do not cause serious problems. They usually get better with diet changes, lifestyle changes, and other home treatments. What are the causes? This condition may be caused by: ??? Having trouble pooping (constipation). ??? Pushing hard (straining) to poop. ??? Watery poop (diarrhea). ??? . ??? Being very overweight (obese). ??? Sitting for long periods of time. ??? Heavy lifting or other activity that causes you to strain. ??? Anal sex. ??? Riding a bike for a long period of time. What are the signs or symptoms? Symptoms of this condition include: ??? Pain. ??? Itching or soreness in the butt. ??? Bleeding from the butt. ??? Leaking poop. ??? Swelling in the area. ??? One or more lumps around the opening of your butt. How is this diagnosed? A doctor can often diagnose this condition by looking at the affected area. The doctor may also: ??? Do an exam that involves feeling the area with a gloved hand (digital rectal exam). ??? Examine the area inside your butt using a small tube (anoscope). ??? Order blood tests. This may be done if you have lost a lot of blood. ??? Have you get a test that involves looking inside the colon using a flexible tube with a camera on the end (sigmoidoscopy or colonoscopy). How is this treated? This condition can usually be treated at home. Your doctor may tell you to change what you eat, make lifestyle changes, or try home treatments. If these do not help, procedures can be done to remove the hemorrhoids or make them smaller. These may involve: ??? Placing rubber bands at the base of the hemorrhoids to cut off their blood supply. ??? Injecting medicine into the hemorrhoids to shrink them. ??? Shining a type of light energy onto the hemorrhoids to cause them to fall off. ??? Doing surgery to remove the hemorrhoids or cut off their blood supply. Follow these instructions at home: Eating and drinking ??? Eat foods that have a lot of fiber in them. These include whole grains, beans, nuts, fruits, and vegetables. ??? Ask your doctor about taking products that have added fiber (fibersupplements). ??? Reduce the amount of fat in your diet. You can do this by: ? Eating low-fat dairy products. ? Eating less red meat. ? Avoiding processed foods. ??? Drink enough fluid to keep your pee (urine) pale yellow. Managing pain and swelling ??? Take a warm-water bath (sitz bath) for 20 minutes to ease pain. Do this 3?4 times a day. You may do this in a bathtub or using a portable sitz bath that fits over the toilet. ??? If told, put ice on the painful area. It may be helpful to use ice between your warm baths. ? Put ice in a plastic bag. ? Place a towel between your skin and the bag. ? Leave the ice on for 20 minutes, 2?3 times a day. General instructions ??? Take hkze-abz-qjrylce and prescription medicines only as told by your doctor. ? Medicated creams and medicines may be used as told. ??? Exercise often. Ask your doctor how much and what kind of exercise is best for you. ??? Go to the bathroom when you have the urge to poop. Do not wait. ??? Avoid pushing too hard when you poop. ??? Keep your butt dry and clean. Use wet toilet paper or moist towelettes after pooping. ??? Do not sit on the toilet for a long time. ??? Keep all follow-up visits as told by your doctor. This is important. Contact a doctor if you: ??? Have pain and swelling that do not get better with treatment or medicine. ??? Have trouble pooping. ??? Cannot poop. ??? Have pain or swelling outside the area of the hemorrhoids. Get help right away if you have: ??? Bleeding that will not stop. Summary ??? Hemorrhoids are swollen veins in the butt or around the opening of the butt. ??? They can cause pain, itching, or bleeding. ??? Eat foods that have a lot of fiber in them. These include whole grains, beans, nuts, fruits, and vegetables. ??? Take a warm-water bath (sitz bath) for 20 minutes to ease pain. Do this 3?4 times a day. This information is not intended to replace advice given to you by your health care provider. Make sure you discuss any questions you have with your health care provider. Document Released: 04/28/2009 Document Revised: 07/28/2019 Document Reviewed: 12/09/2018 [employer] Patient Education ? 2020 [email or web address]. Colonoscopy, Adult, Care After This sheet gives you information about how to care for yourself after your procedure. Your doctor may also give you more specific instructions. If you have problems or questions, call your doctor. What can I expect after the procedure? After the procedure, it is common to have: ??? A small amount of blood in your poop for 24 hours. ??? Some gas. ??? Mild cramping or bloating in your belly. Follow these instructions at home: General instructions ??? For the first 24 hours after the procedure: ? Do not drive or use machinery. ? Do not sign important documents. ? Do not drink alcohol. ? Do your daily activities more slowly than normal. ? Eat foods that are soft and easy to digest. ??? Take xztk-klz-qdpypcg or prescription medicines only as told by your doctor. To help cramping and bloating: ??? Try walking around. ??? Put heat on your belly (abdomen) as told by your doctor. Use a heat source that your doctor recommends, such as a moist heat pack or a heating pad. ? Put a towel between your skin and the heat source. ? Leave the heat on for 20?30 minutes. ? Remove the heat if your skin turns bright red. This is especially important if you cannot feel pain, heat, or cold. You can get burned. Eating and drinking ??? Drink enough fluid to keep your pee (urine) clear or pale yellow. ??? Return to your normal diet as told by your doctor. Avoid heavy or fried foods that are hard to digest. ??? Avoid drinking alcohol for as long as told by your doctor. Contact a doctor if: ??? You have blood in your poop (stool) 2?3 days after the procedure. Get help right away if: ??? You have more than a small amount of blood in your poop. ??? You see large clumps of tissue (blood clots) in your poop. ??? Your belly is swollen. ??? You feel sick to your stomach (nauseous). ??? You throw up (vomit). ??? You have a fever. ??? You have belly pain that gets worse, and medicine does not help your pain. Summary ??? After the procedure, it is common to have a small amount of blood in your poop. You may also have mild cramping and bloating in your belly. ??? For the first 24 hours after the procedure, do not drive or use machinery, do not sign important documents, and do not drink alcohol. ??? Get help right away if you have a lot of blood in your poop, feel sick to your stomach, have a fever, or have more belly pain. This information is not intended to replace advice given to you by your health care provider. Make sure you discuss any questions you have with your health care provider. Document Released: 08/22/2011 Document Revised: 05/20/2018 Document Reviewed: 04/13/2017 [employer] Patient Education ? 2020 [employer] documented in this encounter Plan of Treatment Not on file documented as of this encounter Visit Diagnoses Not on filedocumented in this encounter
--- OUTSIDE RECORDS SUMMARY | 2025-01-23 08:38 | XMS_ITS | Encounter Summary ---
Author Organization [employer] Address [address] [place] [address] Care Team Providers Care Correction Officer Head Name Role Phone Unavailable Primary Care Provider Unavailabl e Encounter Details Date Type Department Care Team (Late st Contact Info) Description 07/22/2019 Transcribed Document [facility] [place] [facility] [place] [address] ProviderSonia MD [address] [place], [place] [phone] Social History Tobacco Use Types Packs/Day Years Used Date Smoking Tobacco: Never Assessed Comments Unknown Sex and Gender Information Value Date Recorded Sex Assigned at Not on file Legal Sex Female 1:42 PM CDT Gender Identity Not on file Sexual Orientation Not on file documented as of this encounter Miscellaneous Notes * Cerner Conversion Note - Historical ProviderMD - 07/22/2019 10:00 PM 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 Pain Assessment Entered On: 07/23/2019 1:04 EST Performed On: 07/22/2019 23:59 EST by DANTE MASCORRO, General Distillery Worker-Nursing Intervention Information: acetaminophen Performed by DANTE MASCORRO, General Distillery Worker-Nursing on 07/22/2019 22:59:00 EST acetaminophen,1000mg Oral Pain Assessment Pain Assessment : Follow-up assessment Pain Scale Used : FACES Pain Intervention, Drug : Medicated Pain Improved by Intervention : Yes DANTE MASCORRO, General Distillery Worker-Nursing - 07/23/2019 1:03 EST Pain Scale Intensity : 3 DANTE MASCORRO General Distillery Worker-Nursing - 07/23/2019 1:03 EST Image 4 - Images currently included in the form version of this document have not been included in the text rendition version of the form. documented in this encounter Plan of Treatment Not on file documented as of this encounter Visit Diagnoses Not on filedocumented in this encounter
--- OUTSIDE RECORDS SUMMARY | 2025-01-23 08:38 | XMS_ITS | Encounter Summary ---
Author Organization [employer] Address [address] [facility] [place] [address] Care Team Providers Care Government Contracts Manager Name Role Phone Unavailable Primary Care Provider Unavailabl e Encounter Details Date Type Department Care Team (Late st Contact Info) Description 07/23/2019 Transcribed Document [facility] [address] [place] [address] Travis Robles MD [address] [place], [place] [id number] Social History Tobacco Use Types Packs/Day Years Used Date Smoking Tobacco: Never Assessed Comments Unknown Sex and Gender Information Value Date Recorded Sex Assigned at Not on file Legal Sex Female 1:42 PM CDT Gender Identity Not on file Sexual Orientation Not on file documented as of this encounter Miscellaneous Notes * Cerner Conversion Note - Travis Robles MD - 07/23/2019 10:00 AM EST Patient: SANDIE FRANK Age: 63 years Sex: Female : 1955 Associated Diagnoses: None Author: TRAVIS ROBLES MD-INT Subjective Chief complaint. Tuesday, July 23, 2019. No fevers or chills. No shortness of breath coughing wheezing. She has a right hip pain postoperatively and she's working with physical therapy with the , nurse, comp field case manager all the bedside. She look like she is about to fallout ofthe bed. The patient's was asking about taking her home. He wanted to know if Dr. Patrick Knutson M.D. with orthopedic surgery actually goes to see patients at the [facility] That he does not go to the [facility] although 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 Physical therapy strongly agreed that he needs to go to inpatient rehabilitation either [facility] are at the [facility]. No fevers or chills. No nausea vomiting. No diarrhea constipation. Respiratory concern is she goes home with just her old her that she is a very high risk of falling and that could be life ending episode for her given her hip surgery. Review of Systems Constitutional: Weakness, Decreased activity, [...] list: Medical Adrenal insufficiency / SNOMED CT 5962145746 / Confirmed Aortic valve stenosis / SNOMED CT 055687422 / Confirmed Arthritis / SNOMED CT 3486839 / Confirmed Asthma / SNOMED CT 842450236 / Confirmed At risk for sleep apnea / IMO 51894298 / Confirmed Cataracts, both eyes / SNOMED CT 250232085 / Confirmed chronic back pain / SNOMED CT 893395790 / Confirmed chronic diarrhea / SNOMED CT 123559297 / Confirmed Chronic kidney disease / SNOMED CT 4847846692 / Confirmed B12 deficiency / SNOMED CT 788128238 / Confirmed Dementia / SNOMED CT 42073342 / Confirmed depression / SNOMED CT 07456862 / Confirmed uses Renexa / SNOMED CT 0119682 / Confirmed chronic hydrocort use / SNOMED CT 0220006 / Confirmed peripheral neuropathy / SNOMED CT 54166519 / Confirmed GERD / SNOMED CT 231841410 / Confirmed fibromyalgia / SNOMED CT 55766557 / Confirmed Glaucoma / SNOMED CT 39837673 / Confirmed migraine headaches / SNOMED CT 353874913 / Confirmed hx cataract surgery bilateral / SNOMED CT 3462601411 / Confirmed hx. chest pain / SNOMED CT 1457491059 / Confirmed hx colon resection secondary decreased function / SNOMED CT 3186167710 / Confirmed hx. frequent UTIs / SNOMED CT 8588517702 / Confirmed high cholesterol / SNOMED CT 89021105 / Confirmed high blood pressure / SNOMED CT 2923444848 / Confirmed Hypothyroidism / SNOMED CT 25041918 / Confirmed kidney stone right kidney current and hx / SNOMED CT 333356028 / Confirmed Osteoporosis / SNOMED CT 595551756 / Confirmed Pneumonia / SNOMED CT 154802616 / Confirmed restless leg syndrome / SNOMED CT 61072254 / Confirmed rheumatoid arthritis / SNOMED CT 488860825 / Confirmed Seasonal allergies / SNOMED CT 9203988819 / Confirmed Vitamin D deficiency / SNOMED CT 02797773 / Confirmed Resolved: Hypotension / SNOMED CT 73337781 Canceled: adrenal insufficiency / SNOMED CT 3329386964 Canceled: Hyperthyroidism / SNOMED CT [id number], Active Problems (33) Adrenal insufficiency Aortic valve [...] azelastine 137 mcg/inh (0.1%) nasal spray: 2 [place], Nasal, BID, PRN: Allergies budesonide: 0.5 mg, [...] intl units oral capsule: 1 Cap, Oral, P2Afzyq, 0 Refill(s) Dilaudid: pain pump, 0 Refill(s) Flax Seed Oil: 1,200 mg, Oral, BID, 0 Refill(s) Flonase: 1 [place], Nostrils Both, BID Lunesta: 3 mg, Oral, [...] azelastine 205.5 mcg/inh (0.15%) nasal spray: 2 [place], Nasal, BID, PRN: for allergy symptoms, 0 [...] azelastine 205.5 mcg/inh (0.15%) nasal spray 2 [place], PRN, Nasal, BID biotin 5 mg, Oral, [...] 50,000 Int Units = 1 Cap, Oral, [id number] Dilaudid donepezil 23 mg, Oral, Daily famotidine 40 mg, Oral, BID Flax Seed Oil 1,200 mg, Oral, BID Flonase 1 [place], Nostrils Both, BID gabapentin 100 mg oral [...] azelastine 137 mcg/spray nasal 30 mL 2 [place], Nasal, BID bisacodyl 10 mg supp 10 [...] 24 hrs) Last Charted Minimum Maximum Temp 97.7 (JUL 23 09:40) 97.7 (JUL 23 09:40) 98.9 (JUL 22 22:47) Apical HR 97 (JUL 23:) 97 (JUL 23:) 97 (JUL 23:) Mon HR 90 (JUL 23 16:56) 77 (JUL 23 06:17) 93 (JUL 22 22:47) Resp Rate 16 (JUL 23 12:53) 16 (JUL 22 18:58) 20 (JUL 23 02:17) SBP 100 (JUL 23 12:53) 92 (JUL 22 18:58) 118 (JUL 22 22:47) DBP L 49 (JUL 23:53) L 43 (JUL 23 09:40) 60 (JUL 23:17) MAP 61 (JUL 23 12:53) 53 (JUL 23 09:40) 71 (JUL 23 06:17) SpO2 L 93 (JUL 23 12:53) L 88 (JUL 23 09:40) 100 (JUL 23 02:17) Physical Examination VS/Measurements Vitals Signs (last 24 hrs) Last Charted Minimum Maximum Temp 97.7 (JUL 23 09:40) 97.7 (JUL 23 09:40) 98.9 (JUL 22 22:47) Apical HR 97 (JUL 23:) 97 (JUL 23:29) 97 (JUL 23:29) Mon HR 90 (JUL 23 16:56) 77 (JUL 23 06:17) 93 (JUL 22 22:47) Resp Rate 16 (JUL 23 12:53) 16 (JUL 22 18:58) 20 (JUL 23 02:17) SBP 100 (JUL 23 12:53) 92 (JUL 22 18:58) 118 (JUL 22 22:47) DBP L 49 (JUL 23 12:53) L 43 (JUL 23 09:40) 60 (JUL 23 06:17) MAP 61 (JUL 23 12:53) 53 (JUL 23 09:40) 71 (JUL 23 06:17) SpO2 L 93 (JUL 23 12:53) L 88 (JUL 23 09:40) 100 (JUL 23 02:17) , Measurements from flowsheet : Measurements 07/22/2019 11:57 EST Height Source Stated Height Entry Format Keith Height/Length, ROMANIAN (ft) 5 ft Height/Length ROMANIAN 7 Inch CLINICALHEIGHT 170.18 cm [place] Body Weight 61 kg Weight Source Standing scale Weight Entry Format Keith Weight Serbian lb 230 lb CLINICALWEIGHT 104.55 kg Body Surface Area (BSA) 2.15 m2 Body Mass Index 36.1 kg/m2 [place] 07/22/2019 6:29 EST Height Source Stated Height Entry Format Keith Height/Length, ROMANIAN (ft) 5 ft Height/Length ROMANIAN 7 Inch CLINICALHEIGHT 170.18 cm [place] Body Weight 61 kg Weight Source Standing scale Weight Entry Format Keith Weight Serbian lb 230 lb CLINICALWEIGHT 104.55 kg Body Surface Area (BSA) 2.15 m2 Body Mass Index 36.1 kg/m2 [place] 07/22/2019 4:50 EST Height Source Not Done: Not Appropriate at this Time (Not Done) Height Entry Format Not Done: Not Appropriate at this Time (Not Done) Weight Source Not Done: Not Appropriate at this Time (Not Done) General: Alert and oriented, Mild distress, Obese, [...] strength, Right total hip replacement. Integumentary: Dry, Intact. Neurologic: Alert, Oriented, Normal sensory. Psychiatric: Cooperative, Appropriate mood & affect. Review / Management Results review: Labs (Last four charted values) HB L 9.5 (JUL 23) HCT L 30.5 (JUL 23) Na 145 (JUL 23) K 4.8 (JUL 23) Cl H 113 (JUL 23) CO2 30 (JUL 23) BUN 13 (JUL 23) Cr 0.99 (JUL 23) Glu R H 134 (JUL 23) Ca 8.5 (JUL 23) . Impression and Plan S/p Right Total [...] 45 days GI ppx: protonix Full code Thursday, July 23, 2019. 35 minutes spent on follow-up this really nice lady who is obese and debilitated, her , nurse, comp field case manager THE bedside. The really voiced some interest [...] likely need it. Hemoglobin 9.5, creatinine 0.9. Active Scaler dictation system used. Computer program makes numerous spelling grammar mistakes. If you have any questions or concerns do not hesitate call Dr. Travis Lux at cell phone number [phone]. documented in this encounter Plan of Treatment Not on file documented as of this encounter Visit Diagnoses Not on filedocumented in this encounter
--- OUTSIDE RECORDS SUMMARY | 2025-01-23 08:38 | XMS_ITS | Encounter Summary ---
Author Organization [employer] Address [address] [place] [address] Care Team Providers Care Buttonhole Marker Name Role Phone Unavailable Primary Care Provider Unavailabl e Encounter Details Date Type Department Care Team (Late st Contact Info) Description 06/21/2020 Transcribed Document [facility] [place] [place] [facility] [place] [address] ProviderSonia MD [address] [place] [address] [phone] Social History Tobacco Use Types Packs/Day Years Used Date Smoking Tobacco: Never Assessed Comments Unknown Sex and Gender Information Value Date Recorded Sex Assigned at Not on file Legal Sex Female 1:42 PM CDT Gender Identity Not on file Sexual Orientation Not on file documented as of this encounter Miscellaneous Notes * Cerner Conversion Note - Historical ProviderMD - 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 Adult Entered On: 06/21/2020 8:11 EST Performed On: 06/21/2020 8:03 EST by Ana Lima Rn Height and Weight, Clinical Dosing Height Source : Stated Height Entry Format : Opp Height, Feet : 5 ft(Converted to: 152 cm, 60 Inch) Height, Inches : 7 Inch(Converted to: 0 ft 7 Inch, 17.78 cm) Clinical Height : 170.18 cm Weight Source : Standing scale Weight Entry Format : Opp Clinical Dosing Weight : 86.82 kg Weight, Pounds : 191 lb Body Surface Area (BSA) : 1.98 m2 Body Mass Index : 30 kg/m2 (HI) [place] Body Weight : 61 kg Ana Lima Rn - 06/21/2020 8:03 EST Health Histories Smoking Status : Never (less than 100 in lifetime; none in last 30 days) Smokeless Tobacco Status : Never Ana Lima Rn - 06/21/2020 8:03 EST Social History (As Of: 06/21/2020 08:11:08 EST) Tobacco: Smoking Status Never smoker. (Last [...] by NOELLE LYNCH RN) Infectious Disease History Has the patient ever been tested for COVID-19? : Yes, Patient stated results Negative Date of COVID-19 test known? : Yes Date of COVID-19 Test : 06/18/2020 EST Does patient have symptoms of COVID-19? : No COVID19 Screening : No Experiencing Infectious Disease Symptoms : No symptoms Physical contact outside [place] in the last 30 days : No Infectious Disease History : Chicken pox/Shingles, Influenza, Measles, Mumps Tuberculosis Symptoms : None Ana Lima Rn - 06/21/2020 8:03 EST COVID19 PreProcedure Screening Is this an Emergent or Add on Procedure? : No Date PreProcedure COVID-19 test known? : Yes Date of PreProcedure COVID-19 : 06/18/2020 EST Has patient been isolated since the test : Yes Exposed to COVID19 symptoms since test? : No Ana Lima Rn - 06/21/2020 8:03 EST Anesthesia/Transfusion History Family History of Anesthesia Reaction : Prior transfusion without reaction Transfusion History : Prior anesthesia reaction Type of Anesthesia Reaction : Excessive nausea/vomiting, Other: last surgery .. couldn't sit up or stand up Balance was off Family History of Anesthesia Reaction : None Ana Lima Rn - 06/21/2020 8:03 EST Functional Assessment Living Situation : Home Current Home Treatments : Nebulizer treatments Ana Lima Rn - 06/21/2020 8:03 EST [place] Suicide Severity Rating Scale (C-SSRS) CSSRS Past Month Wish to be : No CSSRS Past Month Suicidal Thoughts : No CSSRS Lifetime Suicide Behavior : No Suicide Severity Rating Score : 0 Suicide Severity Rating : No Additional Care Required at this time Ana Lima Rn - 06/21/2020 8:03 EST Psychosocial History Chronic/Terminal Illness w/Freq Visits : Yes Do You Have a History of the Following? : Anxiety, Depression Currently in Unsafe Situation : No Ana Lima Rn - 06/21/2020 8:03 EST Advance Directive Patient has Advance Directive *Q : Yes, Advance Directive not with the patient Advance Directive Type : Living will Copy Advance Directive Verified/on Chart : No Ana Lima Rn - 06/21/2020 8:03 EST General Info Preferred Name : Sandie Legal Guardian : No Support Person/Patient Clod Puller : Yes Support Person/Pt Rep Name : spouse Jose Frank Contact Password : [email or web address] Support Person/Pt Rep Contact Information : [phone] Want Family/Rep/Phys Notified of Admit : Yes Name/Contact Info Fam/Rep Notified Adm : Ronny Frank (spouse) Name/Contact Info Physician Notified Adm : Marc Rodriguez Emergency Contact #1 : Ronny Frank Emergency Contact #1 Emergency Contact #1 Relationship : spouse Emergency Contact #2 : . Emergency Contact #2 Phone Number : . Emergency Contact #2 Relationship : . Primary Language : Occitan Preferred Communication Mode : Verbal Communication Barrier : None Telemetry Registered Nurse Needed : No Ana Lima Rn - 06/21/2020 8:03 EST Sleep Apnea Risk Assmt Hx of Obstructive Sleep Apnea Diagnosis : No Snore Loudly : No Tired, Fatigued, or Sleepy During Day : No Observed Stopping Breathing During Sleep : No Have/Are Being Treated for Hypertension : Yes BMI Greater Than 35 kg/m2 : No Age over 50 Years Old : Yes Neck Circumference Greater Than 40 cm : No Gender Male : No STOP-BANG Sleep Apnea Risk Level Score : 2 Ana Lima Rn - 06/21/2020 8:03 EST Joel Scale Joel Sensory Perception : No impairment Joel Moisture : Rarely moist Joel Activity : Walks frequently Joel Mobility : No limitation Joel Nutrition : Adequate Joel Friction and Shear : No apparent problem Joel Score : 22 Ana Lima, Rn - 06/21/2020 8:03 EST Fall Risk Scales ABCs Fall Injury Risk Identification : None COLES Hx Falls Immediate/Within 3 Months : No Coles Secondary Diagnosis : No COLES Use of Ambulatory Aid : None COLES IV Therapy or IV Access : Yes Coles Gait/Transferring : Normal, bedrest, immobile Coles Mental Status : Oriented to own ability Coles Fall Risk Score : 20 COLES Fall Scale Risk Level : 0-24 Low Risk Preston Fall Interventions : Bed in low position, Call device within reach, Wheels locked Ana Lima, Rn - 06/21/2020 8:03 EST Valuables and Belongings Valuables and Belongings : Clothing Clothing : Common streetwear Clothing Disposition : Bedside Ana Lima Rn - 06/21/2020 8:03 EST documented in this encounter Plan of Treatment Not on file documented as of this encounter Visit Diagnoses Not on filedocumented in this encounter
--- OUTSIDE RECORDS SUMMARY | 2025-01-23 08:38 | XMS_ITS | Encounter Summary ---
Author Organization [employer] Address [address] [place] [address] Care Team Providers Care Head Of English Name Role Phone Unavailable Primary Care Provider Unavailabl e Encounter Details Date Type Department Care Team (Late st Contact Info) Description 07/23/2019 Transcribed Document [place] [facility] [place] [address] ProviderSonia MD [address] [place] [address] [phone] Social History Tobacco Use Types Packs/Day Years Used Date Smoking Tobacco: Never Assessed Comments Unknown Sex and Gender Information Value Date Recorded Sex Assigned at Not on file Legal Sex Female 1:42 PM CDT Gender Identity Not on file Sexual Orientation Not on file documented as of this encounter Miscellaneous Notes * Cerner Conversion Note - Historical ProviderMD - 07/23/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 Pain Assessment Entered On: 08/01/2019 4:02 EST Performed On: 08/01/2019 3:53 EST by Cathie Lundy RN Intervention Information: ketorolac Performed by Cathie Lundy RN on 08/01/2019 03:23:00 EST ketorolac,15mg IV Push,Peripheral Line 1,Pain (Moderate 4-6) Pain Assessment Pain Assessment : Follow-up assessment Pain Scale Goal : 5 Pain Scale Used : 0-10 Scale Pain Improved by Intervention : Yes Cathie Lundy RN - 08/01/2019 4:01 EST Pain Scale Intensity : 2 Cathie Lundy RN - 08/01/2019 4:01 EST Image 4 - Images currently included in the form version of this document have not been included in the text rendition version of the form. Electronically signed by Ivelisse Camargo Conversion Polymerization Oven Operator Cerner at 11/21/2022 11:34 AM CDT documented in this encounter Plan of Treatment Not on file documented as of this encounter Visit Diagnoses Not on filedocumented in this encounter
--- OUTSIDE RECORDS SUMMARY | 2025-01-23 08:38 | XMS_ITS | Encounter Summary ---
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 Role Phone Unavailable Primary Care Provider Unavailabl e Encounter Details Date Type Department Care Team (Late st Contact Info) Description 08/02/2019 Transcribed Document [facility] [place] [place] [facility] [place] [address] ProviderSonia MD [address] [place] [address] Social History Tobacco Use Types Packs/Day Years Used Date Smoking Tobacco: Never Assessed Comments Unknown Sex and Gender Information Value Date Recorded Sex Assigned at Not on file Legal Sex Female 1:42 PM CDT Gender Identity Not on file Sexual Orientation Not on file documented as of this encounter Miscellaneous Notes * Cerner Conversion Note - Sonia ProviderMD - 08/02/2019 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[address] , [place] [address] Patient Copy Patient Information: Name: SANDIE FRANK Current Date: 08/02/2019 12:03:10 : 1955 Patient Address: [address] [place] [address] [address] JIMENEZ MAXIMILIANO [id number] Patient Attending Physician: IRINEO DECKER MD Primary Care Provider: LEOPOLDO TEJADA (REF)[facility] Primary Care Provider Discharge Diagnosis: Weight on Admission: 230 lb, 0 oz Comment: Follow-up Instructions: With: Address: When: PEE VILLAR MD-[facility] [address] [place] [address] 11:15 AM Comments: Appointment has been made Discharge Instructions: Immunizations Documented During Stay: No Immunizations Found Heart Failure Discharge Instructions (if any): Stroke Related Discharge Instructions (if any): Warfarin Related Discharge Instructions (if any): Final Medication List: Other Medications albuterol (albuterol 2.5 mg/3 mL (0.083%) inhalation solution) 3 Milliliter(s) Inhalation Every 4 Hours as needed as needed for wheezing. albuterol (Ventolin HFA 90 mcg/inh inhalation aerosol) 2 Puff(s) Inhalation Four Times A Day. alendronate 70 Milligram(s) Oral Weekly. ascorbic acid (Vitamin C 500 mg oral tablet) 1 Tablet(s) Oral Every Day. aspirin (aspirin 81 mg oral delayed release tablet) 1 Tablet(s) Oral Two Times A Day. azelastine nasal (azelastine 205.5 mcg/inh (0.15%) nasal spray) 2 Dougherty(s) Nasal Two Times A Day as needed for allergy symptoms. bifidobacterium-lactobacillus (Probiotic Formula oral capsule) 1 Capsule(s) Oral Every Day. biotin 5 Milligram(s) Oral At Bedtime. budesonide 1 Milligram(s) Nebulized Inhalation Every Day. bupivacaine pain pump. cholecalciferol (Decara 50,000 intl units oral capsule) 1 Capsule(s) Oral Every Two Weeks. cholecalciferol (Vitamin D3) 2,000 International Units Oral Every Day. cyanocobalamin (cyanocobalamin 1000 mcg/mL injectable solution) 1,000 Microgram(s) IntraMuscular Weekly. cycloSPORINE ophthalmic (Restasis 0.05% ophthalmic emulsion) 1 Drop(s) Eyes Both every 12 hours. donepezil 23 Milligram(s) Oral Every Day. DULoxetine (Cymbalta 30 mg oral delayed release capsule) 1 Capsule(s) Oral Every Evening. DULoxetine (Cymbalta 60 mg oral delayed release capsule) 1 Capsule(s) Oral Every Morning. eszopiclone (Lunesta) 3 Milligram(s) Oral At Bedtime. famotidine 40 Milligram(s) Oral Two Times A Day. flax (Flax Seed Oil) 1,200 Milligram(s) Oral Two Times A Day. fluticasone nasal (Flonase) 1 Dougherty(s) Nostrils Both Two Times A Day. formoterol (Perforomist 20 mcg/2 mL inhalation solution) 2 Milliliter(s) Inhalation Two Times A Day. using a continuous flow nebulizer. gabapentin (gabapentin 100 mg oral capsule) 1 Capsule(s) Oral Every Evening. hydrocortisone (hydrocortisone 10 mg oral tablet) 0.5 Tablet(s) Oral Two Times A Day. lamoTRIgine (lamoTRIgine 100 mg oral tablet) 1 Tablet(s) Oral Two Times A Day. levothyroxine (levothyroxine 100 mcg (0.1 mg) oral tablet) 1 Tablet(s) Oral Every Day. loteprednol ophthalmic (Alrex 0.2% ophthalmic suspension) 1 Drop(s) Eyes Both Two Times A Day. lutein (Lutein 20 mg oral capsule) 1 Capsule(s) Oral Every Evening. melatonin (melatonin 10 mg oral capsule) 1 Capsule(s) Oral At Bedtime. memantine (memantine 5 mg oral tablet) 2 Tablet(s) Oral Two Times A Day. metoprolol (Metoprolol Tartrate 25 mg oral tablet) 0.5 Tablet(s) Oral Two Times A Day. montelukast (montelukast 10 mg oral tablet) 1 Tablet(s) Oral Every Day. multivitamin (Multi Vitamin+) 1 Tablet(s) Oral Every Day. oxyCODONE (oxyCODONE 5 mg oral tablet) 2 Tablet(s) Oral Every 4 Hours as needed Pain (Mild 1-3). QUEtiapine (QUEtiapine 300 mg oral tablet) 1 Tablet(s) Oral At Bedtime. rosuvastatin (Crestor 20 mg oral tablet) 1 Tablet(s) Oral At Bedtime. sodium bicarbonate (sodium bicarbonate 650 mg oral tablet) 1 Tablet(s) Oral Two Times A Day. Patient Allergies: Lyrica; meropenem; cephalexin; erythromycin; clindamycin; codeine Medication Instructions: Take your medications faithfully. Do NOT skip medication. Do NOT stop taking medications without the direction of a physician. Carry a list of your medications with you at all times, and take this medication list with you to your first follow up visit. Report any side effects. Avoid herbal remedies unless discussed with your physician. As part of your treatment plan, your physician may have prescribed a limited course of a controlled substance. This medication may be given to help people with moderate or severe pain or for other medical conditions, but there are risks involved with treatment. Common side effects may include nausea, constipation, drowsiness, sweating, itching, dry mouth, and rash. More serious side effects may include cognitive and motor impairment, like problems with thinking, concentrating, alertness, and movement (e.g. slowed reflexes), and driving and operating heavy machinery can be dangerous. It is important for you to talk to your physician if you have these side effects or questions. These controlled substances can produce physical dependence and be habit-forming if taken for an extended period of time, which means that the body has gotten used to them and may experience withdrawal symptoms if they are abruptly stopped. Withdrawal symptoms can include runny nose, sweating, goose bumps, diarrhea, abdominal cramping, rapid heartbeat, difficulty sleeping, and nervousness. Patient education materials: What to expect after the Procedure: After [...] awake for one month to help prevent pneumonia. ?? Wear compression stockimngs for 6 weeks. ?? DVT PROPHYLAXIS: Take Aspirin 81mg twice a day for 45 days. ?? Leave the dressing in place for 7 days then leave it open to air. Contact a health care provider if: ?? [...] Barley. Bulgur wheat. Millet. Bran muffins. Popcorn. Walsh wafer crackers. Vegetables Sweet potatoes. Spinach. Kale. Artichokes. Cabbage. Broccoli. Green peas. Carrots. Squash. Fruits Berries. Pears. Apples. Oranges. Avocados. Prunes and raisins. Dried figs. Meats and Other Protein Sources [place], kidney, roland, and soy beans. Split peas. Lentils. Nuts and seeds. Dairy Fiber-fortified yogurt. Beverages Fiber-fortified soy milk. Fiber-fortified orange juice. Other Fiber bars. High-protein foods: To promote healing High-protein foods contain 4 grams (4 g) or more of protein per serving. They include: ?? Beef, ground sirloin (cooked) ??? 3 oz have 24 g of protein. ?? Cheese (hard) ??? 1 oz has 7 g of protein. ?? Chicken breast, boneless and skinless (cooked) ??? 3 oz have 13.4 g of protein. ?? Cottage cheese ??? 1/2 cup has 13.4 g of protein. ?? Egg ??? 1 egg has 6 g of protein. ?? Fish, filet (cooked) ??? 1 oz has 6???7 g of protein. ?? Garbanzo beans (canned or cooked) ??? 1/2 cup has 6???7 g of protein. ?? Kidney beans (canned or cooked) ??? 1/2 cup has 6???7 g of protein. ?? [place] (cooked) ??? 3 oz has 24 g of protein. ?? Milk ??? 1 cup (8 oz) has 8 g of protein. ?? Nuts (peanuts, pistachios, almonds) ??? 1 oz has 6 g of protein. ?? Peanut butter ??? 1 oz has 7???8 g of protein. ?? Pork tenderloin (cooked) ??? 3 oz has 18.4 g of protein. ?? Pumpkin seeds ??? 1 oz has 8.5 g of protein. ?? Soybeans (roasted) ??? 1 oz has 8 g of protein. ?? Soybeans (cooked) ??? 1/2 cup has 11 g of protein. ?? Soy milk ??? 1 cup (8 oz) has 5???10 g of protein. ?? Soy or vegetable lolis ??? 1 lolis has 11 g of protein. ?? [place] seeds ??? 1 oz has 5.5 g of protein. ?? Tofu (firm) ??? 1/2 cup has 20 g of protein. ?? Tuna (canned in water) ??? 3 oz has 20 g of protein. ?? Yogurt ??? 6 oz has 8 g of protein. [...] floor. ?? Place frequently used items in qctz-lu-bnfru places ?? Keep electrical cables out of [...] ?? Using the bathroom. ?? Using household design agent or toxic chemicals. ?? Touching or taking [...] 5. Step down with your stronger leg. Medication Leaflets: tramadol (TRAM a dol) ConZip, Ultram, Ultram ER What is the most important information I should know about tramadol? MISUSE OF THIS MEDICINE CAN CAUSE ADDICTION, OVERDOSE, OR . Keep the medication in a place where others cannot get to it. Tramadol should not be given to a child younger than 12 years old. Ultram ER should not be given to anyone younger than 18 years old. Taking tramadol during may cause life-threatening withdrawal symptoms in the . Fatal side effects can occur if you use tramadol with alcohol, or with other drugs that cause drowsiness or slow your breathing. What is tramadol? Tramadol is an pain medicine similar to an opioid (sometimes called, a narcotic). Tramadol is used to treat moderate to severe pain. The extended-release form of this medicine is for ktiecn-wvg-mltan treatment of pain. This form of tramadol is not for use on an as-needed basis for pain. Tramadol may also be used for purposes not listed in this medication guide. What should I discuss with my healthcare provider before taking tramadol? You should not take tramadol if you are allergic to it, or if you have: ? severe asthma or breathing problems; ?? a blockage in your stomach or intestines; ?? if you have recently used alcohol, sedatives, tranquilizers, or narcotic medications; or ?? if you have used an MAO inhibitor in the past 14 days (such as isocarboxazid, linezolid, methylene blue injection, phenelzine, rasagiline, selegiline, or tranylcypromine). Tramadol should not be given to a child younger than 12 years old. Ultram ER should not be given to anyone younger than 18 years old. Do not give tramadol to anyone younger than 18 years old who recently had surgery to remove the tonsils or adenoids. Seizures have occurred in some people taking tramadol. Talk with your doctor about your seizure risk, which may be higher if you have ever had: ? a head injury, epilepsy or other seizure disorder; ?? drug or alcohol addiction; or ?? a metabolic disorder. Tell your doctor if you have ever had: ? breathing problems, sleep apnea; ?? liver or kidney disease; ?? urination problems; ?? problems with your gallbladder, pancreas, or thyroid; ?? a stomach disorder; or ?? mental illness, or suicide attempt. If you use tramadol while you are , your baby could become dependent on the drug. This can cause life-threatening withdrawal symptoms in the baby after it is born. Babies born dependent on habit-forming medicine may need medical treatment for several weeks. Do not breast-feed. Tramadol can pass into breast milk and cause drowsiness, breathing problems, or in a nursing baby. How should I take tramadol? Follow the directions on your prescription label and read all medication guides. Never use tramadol in larger amounts, or for longer than prescribed. Tell your doctor if you feel an increased urge to take more of this medicine. Never share this medicine with another person, especially someone with a history of drug abuse or addiction. MISUSE CAN CAUSE ADDICTION, OVERDOSE, OR . Keep the medicine in a place where others cannot get to it. Selling or giving away tramadol is against the law. Stop taking all other mssikf-qsz-kxjas narcotic pain medications when you start taking tramadol. Tramadol can be taken with or without food, but take it the same way each time. Swallow the capsule or tablet whole to avoid exposure to a potentially fatal overdose. Do not crush, chew, break, open, or dissolve. Never crush or break a tramadol pill to inhale the powder or mix it into a liquid to inject the drug into your vein. This practice has resulted in . Do not stop using tramadol suddenly, or you could have unpleasant withdrawal symptoms. Ask your doctor how to safely stop using tramadol. Store at room temperature away from moisture and heat. Keep track of your medicine. You should be aware if anyone is using it improperly or without a prescription. Do not keep leftover opioid medication. Just one dose can cause in someone using this medicine accidentally or improperly. Ask your pharmacist where to locate a drug take-back disposal program. If there is no take-back program, mix the leftover medicine with cat litter or coffee grounds in a sealed plastic bag throw the bag in the trash. What happens if I miss a dose? Since tramadol is used for pain, you are not likely to miss a dose. Skip any missed dose if it is almost time for your next dose. Do not use two doses at one time. What happens if I overdose? Seek emergency medical attention or call the Poison Help line at . A tramadol overdose can be fatal, especially in a child or other person using the medicine without a prescription. Overdose symptoms may include slow heart rate, severe drowsiness, cold and clammy skin, very slow breathing, or coma. What should I avoid while taking tramadol? Do not drink alcohol. Dangerous side effects or could occur. Avoid driving or hazardous activity until you know how this medicine will affect you. Dizziness or drowsiness can cause falls, accidents, or severe injuries. What are the possible side effects of tramadol? Get emergency medical help if you have signs of an allergic reaction (hives, difficult breathing, swelling in your face or throat) or a severe skin reaction (fever, sore throat, burning in your eyes, skin pain, red or purple skin rash that spreads and causes blistering and peeling). This medicine can slow or stop your breathing, and may occur. A person caring for you should seek emergency medical attention if you have slow breathing with long pauses, blue colored lips, or if you are hard to wake up. Call your doctor at once if you have: ? noisy breathing, sighing, shallow breathing, breathing that stops during sleep; ?? a slow heart rate or weak pulse; ?? a light-headed feeling, like you might pass out; ?? seizure (convulsions); or ?? low cortisol levels--nausea, vomiting, loss of appetite, dizziness, worsening tiredness or weakness. Seek medical attention right away if you have symptoms of serotonin syndrome, such as: agitation, hallucinations, fever, sweating, shivering, fast heart rate, muscle stiffness, twitching, loss of coordination, nausea, vomiting, or diarrhea. Serious side effects may be more likely in older adults and those who are overweight, malnourished, or debilitated. Long-term use of opioid medication may affect fertility (ability to have children) in men or women. It is not known whether opioid effects on fertility are permanent. Common side effects may include: ? constipation, nausea, vomiting, stomach pain; ?? dizziness, drowsiness, tiredness; ?? headache; or ?? itching. This is not a complete list of side effects and others may occur. Call your doctor for medical advice about side effects. You may report side effects to FDA at 7-050-MYF-4433. What other drugs will affect tramadol? You may have breathing problems or withdrawal symptoms if you start or stop taking certain other medicines. Tell your doctor if you also use an antibiotic, antifungal medication, heart or blood pressure medication, seizure medication, or medicine to treat HIV or hepatitis C. Opioid medication can interact with many other drugs and cause dangerous side effects or . Be sure your doctor knows if you also use: ? cold or allergy medicines, bronchodilator asthma/COPD medication, or a diuretic ('water pill'); ?? medicines for motion sickness, irritable bowel syndrome, or overactive bladder; ?? other narcotic medications--opioid pain medicine or prescription cough medicine; ?? a sedative like Valium--diazepam, alprazolam, lorazepam, Xanax, Klonopin, Versed, and others; ?? drugs that make you sleepy or slow your breathing--a sleeping pill, muscle relaxer, medicine to treat mood disorders or mental illness; or ?? drugs that affect serotonin levels in your body--a stimulant, or medicine for depression, Parkinson's disease, migraine headaches, serious infections, or nausea and vomiting. This list is not complete and many other drugs may affect tramadol. This includes prescription and shhh-akq-bvjhtya medicines, vitamins, and herbal products. Not all possible drug interactions are listed here. Where can I get more information? Your doctor or pharmacist can provide more information about tramadol. Remember, keep this and all other medicines out of the reach of children, never share your medicines with others, and use this medication only for the indication prescribed. Every effort has been made to ensure that the information provided by [employer]. ('[employer]') is accurate, up-to-date, and complete, but no guarantee is made to that effect. Drug information contained herein may be time sensitive. [employer] information has been compiled for use by healthcare practitioners and consumers in the [place] and therefore [employer] does not warrant that uses outside of the [place] are appropriate, unless specifically indicated otherwise. [employer] drug information does not endorse drugs, diagnose patients or recommend therapy. [employer] drug information is an informational resource designed to assist licensed healthcare practitioners in caring for their patients and/or to serve consumers viewing this service as a supplement to, and not a substitute for, the expertise, skill, knowledge and judgment of healthcare practitioners. The absence of a warning for a given drug or drug combination in no way should be construed to indicate that the drug or drug combination is safe, effective or appropriate for any given patient. [employer] does not assume any responsibility for any aspect of healthcare administered with the aid of information [employer] provides. The information contained herein is not intended to cover all possible uses, directions, precautions, warnings, drug interactions, allergic reactions, or adverse effects. If you have questions about the drugs you are taking, check with your doctor, nurse or pharmacist. Copyright 9500-9912 [employer]. Version: 20.02. Revision Date: 05/16/2019. oxycodone (ox i KOE done) Oxaydo, OxyCONTIN, Oxyfast, Roxicodone, Xtampza ER What is the most important information I should know about oxycodone? MISUSE OF OPIOID MEDICINE CAN CAUSE ADDICTION, OVERDOSE, OR . Keep the medication in a place where others cannot get to it. Taking opioid medicine during may cause life-threatening withdrawal symptoms in the . Fatal side effects can occur if you use opioid medicine with alcohol, or with other drugs that cause drowsiness or slow your breathing. What is oxycodone? Oxycodone is an opioid pain medication used to treat moderate to severe pain. The extended-release form of oxycodone is for dwtgdm-kom-jxyzj treatment of pain and should not be used on an as-needed basis for pain. Oxycodone may also be used for purposes not listed in this medication guide. What should I discuss with my healthcare provider before using oxycodone? You should not use oxycodone if you are allergic to it, or if you have: ? severe asthma or breathing problems; or ?? a blockage in your stomach or intestines. You should not use oxycodone unless you are already using a similar opioid medicine and are tolerant to it. Most brands of oxycodone are not approved for use in people under 18. OxyContin should not be given to a child younger than 11 years old. Tell your doctor if you have ever had: ? breathing problems, sleep apnea; ?? a head injury, or seizures; ?? drug or alcohol addiction, or mental illness; ?? liver or kidney disease; ?? urination problems; or ?? problems with your gallbladder, pancreas, or thyroid. If you use opioid medicine while you are , your baby could become dependent on the drug. This can cause life-threatening withdrawal symptoms in the baby after it is born. Babies born dependent on opioids may need medical treatment for several weeks. Do not breast-feed. Oxycodone can pass into breast milk and may cause drowsiness, breathing problems, or in a nursing baby. How should I use oxycodone? Follow the directions on your prescription label and read all medication guides. Never use oxycodone in larger amounts, or for longer than prescribed. Tell your doctor if you feel an increased urge to take more of this medicine. Never share opioid medicine with another person, especially someone with a history of drug abuse or addiction. MISUSE CAN CAUSE ADDICTION, OVERDOSE, OR . Keep the medication in a place where others cannot get to it. Selling or giving away opioid medicine is against the law. Stop taking all other xyjopx-omw-ngihl narcotic pain medicines when you start taking extended-release oxycodone. Take oxycodone with food. Swallow the capsule or tablet whole to avoid exposure to a potentially fatal overdose. Do not crush, chew, break, open, or dissolve. Never crush or break an oxycodone pill to inhale the powder or mix it into a liquid to inject the drug into your vein. This can cause in . Measure liquid medicine carefully. Use the dosing syringe provided, or use a medicine dose-measuring device (not a kitchen spoon). You should not stop using oxycodone suddenly. Follow your doctor's instructions about tapering your dose. Store at room temperature, away from heat, moisture, and light. Keep track of your medicine. Oxycodone is a drug of abuse and you should be aware if anyone is using your medicine improperly or without a prescription. Do not keep leftover opioid medication. Just one dose can cause in someone using this medicine accidentally or improperly. Ask your pharmacist where to locate a drug take-back disposal program. If there is no take-back program, flush the unused medicine down the toilet. What happens if I miss a dose? Since oxycodone is used for pain, you are not likely to miss a dose. Skip any missed dose if it is almost time for your next dose. Do not use two doses at one time. What happens if I overdose? Seek emergency medical attention or call the Poison Help line at . An oxycodone overdose can be fatal, especially in a child or other person using the medicine without a prescription. Overdose can cause severe muscle weakness, pinpoint pupils, very slow breathing, extreme drowsiness, or coma. What should I avoid while using oxycodone? Do not drink alcohol. Dangerous side effects or could occur. Avoid driving or operating machinery until you know how oxycodone will affect you. Dizziness or severe drowsiness can cause falls or other accidents. Avoid medication errors. Always check the brand and strength of oxycodone you get from the pharmacy. What are the possible side effects of oxycodone? Get emergency medical help if you have signs of an allergic reaction: hives; difficult breathing; swelling of your face, lips, tongue, or throat. Opioid medicine can slow or stop your breathing, and may occur. A person caring for you should seek emergency medical attention if you have slow breathing with long pauses, blue colored lips, or if you are hard to wake up. Call your doctor at once if you have: ? noisy breathing, sighing, shallow breathing, breathing that stops during sleep; ?? a slow heart rate or weak pulse; ?? a light-headed feeling, like you might pass out; ?? confusion, unusual thoughts or behavior; ?? seizure (convulsions); or ?? low cortisol levels-- nausea, vomiting, loss of appetite, dizziness, worsening tiredness or weakness. Seek medical attention right away if you have symptoms of serotonin syndrome, such as: agitation, confusion, fever, sweating, fast heart rate, chest pain, feeling short of breath, muscle stiffness, trouble walking, or feeling faint. Serious side effects may be more likely in older adults and those who are malnourished or debilitated. Long-term use of opioid medication may affect fertility (ability to have children) in men or women. It is not known whether opioid effects on fertility are permanent. Common side effects may include: ? drowsiness, headache, dizziness, tiredness; or ?? constipation, stomach pain, nausea, vomiting. This is not a complete list of side effects and others may occur. Call your doctor for medical advice about side effects. You may report side effects to FDA at 4-168-SKA-1175. What other drugs will affect oxycodone? You may have breathing problems or withdrawal symptoms if you start or stop taking certain other medicines. Tell your doctor if you also use an antibiotic, antifungal medication, heart or blood pressure medication, seizure medication, or medicine to treat HIV or hepatitis C. Opioid medication can interact with many other drugs and cause dangerous side effects or . Be sure your doctor knows if you also use: ? cold or allergy medicines, bronchodilator asthma/COPD medication, or a diuretic ('water pill'); ?? medicines for motion sickness, irritable bowel syndrome, or overactive bladder; ?? other narcotic medications--opioid pain medicine or prescription cough medicine; ?? a sedative like Valium--diazepam, alprazolam, lorazepam, Xanax, Klonopin, Versed, and others; ?? drugs that make you sleepy or slow your breathing--a sleeping pill, muscle relaxer, medicine to treat mood disorders or mental illness; or ?? drugs that affect serotonin levels in your body--a stimulant, or medicine for depression, Parkinson's disease, migraine headaches, serious infections, or nausea and vomiting. This list is not complete and many other drugs may affect oxycodone. This includes prescription and qaua-bmd-zinzzix medicines, vitamins, and herbal products. Not all possible drug interactions are listed here. Where can I get more information? Your pharmacist can provide more information about oxycodone. Remember, keep this and all other medicines out of the reach of children, never share your medicines with others, and use this medication only for the indication prescribed. Every effort has been made to ensure that the information provided by [employer]. ('[employer]') is accurate, up-to-date, and complete, but no guarantee is made to that effect. Drug information contained herein may be time sensitive. [employer] information has been compiled for use by healthcare practitioners and consumers in the [place] and therefore [employer] does not warrant that uses outside of the [place] are appropriate, unless specifically indicated otherwise. [employer] drug information does not endorse drugs, diagnose patients or recommend therapy. [employer] drug information is an informational resource designed to assist licensed healthcare practitioners in caring for their patients and/or to serve consumers viewing this service as a supplement to, and not a substitute for, the expertise, skill, knowledge and judgment of healthcare practitioners. The absence of a warning for a given drug or drug combination in no way should be construed to indicate that the drug or drug combination is safe, effective or appropriate for any given patient. [employer] does not assume any responsibility for any aspect of healthcare administered with the aid of information [employer] provides. The information contained herein is not intended to cover all possible uses, directions, precautions, warnings, drug interactions, allergic reactions, or adverse effects. If you have questions about the drugs you are taking, check with your doctor, nurse or pharmacist. Copyright 2648-9910 [employer]. Version: 13.03. Revision Date: 05/16/2019. hydromorphone (oral) (NAOMI saeed) Tessaudid, Exalgo What is the most important information I should know about hydromorphone? MISUSE OF OPIOID MEDICINE CAN CAUSE ADDICTION, OVERDOSE, OR . Keep the medication in a place where others cannot get to it. Taking opioid medicine during may cause life-threatening withdrawal symptoms in the . Fatal side effects can occur if you use opioid medicine with alcohol, or with other drugs that cause drowsiness or slow your breathing. What is hydromorphone? Hydromorphone is an opioid medication used to treat moderate to severe pain. The extended-release form of this medicine is for gdqcbz-owu-bmyqx treatment of moderate to severe pain, not for use on an as-needed basis for pain. Hydromorphone may also be used for purposes not listed in this medication guide. What should I discuss with my healthcare provider before using hydromorphone? You should not take this medicine if you have ever had an allergic reaction to hydromorphone or other narcotic medicines, or if you have: ? severe asthma or breathing problems; ?? a blockage in your stomach or intestines; or ?? a bowel obstruction called paralytic ileus. Do not use hydromorphone if you have used an MAO inhibitor in the past 14 days. A dangerous drug interaction could occur. MAO inhibitors include isocarboxazid, linezolid, methylene blue injection, phenelzine, rasagiline, selegiline, tranylcypromine, and others. Tell your doctor if you have ever had: ? a head injury, brain tumor, or seizures; ?? alcoholism, drug addiction, or mental illness; ?? urination problems; ?? liver or kidney disease; ?? a sulfite allergy; or ?? problems with your gallbladder, pancreas, or thyroid. If you use opioid medicine while you are , your baby could become dependent on the drug. This can cause life-threatening withdrawal symptoms in the baby after it is born. Babies born dependent on opioids may need medical treatment for several weeks. Do not breast-feed. Hydromorphone can pass into breast milk and may cause drowsiness or breathing problems in a nursing baby. How should I use hydromorphone? Follow the directions on your prescription label and read all medication guides. Never use hydromorphone in larger amounts, or for longer than prescribed. Tell your doctor if you feel an increased urge to take more of this medicine. Never share opioid medicine with another person, especially someone with a history of drug abuse or addiction. MISUSE CAN CAUSE ADDICTION, OVERDOSE, OR . Keep the medication in a place where others cannot get to it. Selling or giving away opioid medicine is against the law. Stop taking all other wlihdu-boi-wdmut narcotic pain medications when you start taking hydromorphone. Swallow the capsule or tablet whole to avoid exposure to a potentially fatal overdose. Do not crush, chew, break, open, or dissolve. Measure liquid medicine carefully. Use the dosing syringe provided, or use a medicine dose-measuring device (not a kitchen spoon). Do not stop using hydromorphone suddenly, or you could have unpleasant withdrawal symptoms. Ask your doctor how to safely stop using hydromorphone. Never crush or break a hydromorphone pill to inhale the powder or mix it into a liquid to inject the drug into your vein. This can cause in . Store at room temperature away from moisture, heat, and light. Throw away any unused liquid after 90 days. Keep track of your medicine. You should be aware if anyone is using it improperly or without a prescription. Do not keep leftover opioid medication. Just one dose can cause in someone using this medicine accidentally or improperly. Ask your pharmacist where to locate a drug take-back disposal program. If there is no take-back program, flush the unused medicine down the toilet. What happens if I miss a dose? Since hydromorphone is used for pain, you are not likely to miss a dose. Skip any missed dose if it is almost time for your next dose. Do not use two doses at one time. What happens if I overdose? Seek emergency medical attention or call the Poison Help line at . A hydromorphone overdose can be fatal, especially in a child or other person using the medicine without a prescription. Overdose symptoms may include slow heart rate, severe drowsiness, muscle weakness, cold and clammy skin, pinpoint pupils, very slow breathing, or coma. What should I avoid while using hydromorphone? Do not drink alcohol. Dangerous side effects or could occur. Avoid driving or hazardous activity until you know how this medicine will affect you. Dizziness or drowsiness can cause falls, accidents, or severe injuries. What are the possible side effects of hydromorphone? Get emergency medical help if you have signs of an allergic reaction: hives; difficulty breathing; swelling of your face, lips, tongue, or throat. Opioid medicine can slow or stop your breathing, and may occur. A person caring for you should seek emergency medical attention if you have slow breathing with long pauses, blue colored lips, or if you are hard to wake up. Call your doctor at once if you have: ? noisy breathing, sighing, shallow breathing; ?? a slow heart rate or weak pulse; ?? confusion, feelings of extreme happiness or sadness; ?? severe weakness or drowsiness; ?? a light-headed feeling, like you might pass out; ?? low cortisol levels--nausea, vomiting, loss of appetite, dizziness, worsening tiredness or weakness. Seek medical attention right away if you have symptoms of serotonin syndrome, such as: agitation, hallucinations, fever, sweating, shivering, fast heart rate, muscle stiffness, twitching, loss of coordination, nausea, vomiting, or diarrhea. Serious side effects may be more likely in older adults and those who are malnourished or debilitated. Long-term use of opioid medication may affect fertility (ability to have children) in men or women. It is not known whether opioid effects on fertility are permanent. Common side effects may include: ? drowsiness, tiredness; ?? dizziness; ?? headache; or ?? constipation, nausea, vomiting, stomach pain. This is not a complete list of side effects and others may occur. Call your doctor for medical advice about side effects. You may report side effects to FDA at 4-062-PUQ-3872. What other drugs will affect hydromorphone? Opioid medication can interact with many other drugs and cause dangerous side effects or . Be sure your doctor knows if you also use: ? other narcotic medications--opioid pain medicine or prescription cough medicine; ?? a sedative like Valium--diazepam, alprazolam, lorazepam, Xanax, Klonopin, Versed, and others; ?? drugs that make you sleepy or slow your breathing--a sleeping pill, muscle relaxer, medicine to treat mood disorders or mental illness; or ?? drugs that affect serotonin levels in your body--a stimulant, or medicine for depression, Parkinson's disease, migraine headaches, serious infections, or nausea and vomiting. This list is not complete. Other drugs may affect hydromorphone, including prescription and kkxg-noe-zzmlrhf medicines, vitamins, and herbal products. Not all possible interactions are listed here. Where can I get more information? Your doctor or pharmacist can provide more information about hydromorphone. Remember, keep this and all other medicines out of the reach of children, never share your medicines with others, and use this medication only for the indication prescribed. Every effort has been made to ensure that the information provided by [employer]. ('[employer]') is accurate, up-to-date, and complete, but no guarantee is made to that effect. Drug information contained herein may be time sensitive. [employer] information has been compiled for use by healthcare practitioners and consumers in the [place] and therefore [employer] does not warrant that uses outside of the [place] are appropriate, unless specifically indicated otherwise. [employer] drug information does not endorse drugs, diagnose patients or recommend therapy. [employer] drug information is an informational resource designed to assist licensed healthcare practitioners in caring for their patients and/or to serve consumers viewing this service as a supplement to, and not a substitute for, the expertise, skill, knowledge and judgment of healthcare practitioners. The absence of a warning for a given drug or drug combination in no way should be construed to indicate that the drug or drug combination is safe, effective or appropriate for any given patient. [employer] does not assume any responsibility for any aspect of healthcare administered with the aid of information [employer] provides. The information contained herein is not intended to cover all possible uses, directions, precautions, warnings, drug interactions, allergic reactions, or adverse effects. If you have questions about the drugs you are taking, check with your doctor, nurse or pharmacist. Copyright 0832-9409 [employer]. Version: 9.02. Revision Date: 06/30/2018. oxycodone (ox i KOE done) Oxaydo, OxyCONTIN, Oxyfast, Roxicodone, Xtampza ER What is the most important information I should know about oxycodone? MISUSE OF OPIOID MEDICINE CAN CAUSE ADDICTION, OVERDOSE, OR . Keep the medication in a place where others cannot get to it. Taking opioid medicine during may cause life-threatening withdrawal symptoms in the . Fatal side effects can occur if you use opioid medicine with alcohol, or with other drugs that cause drowsiness or slow your breathing. What is oxycodone? Oxycodone is an opioid pain medication used to treat moderate to severe pain. The extended-release form of oxycodone is for hzxggi-xkw-zmghb treatment of pain and should not be used on an as-needed basis for pain. Oxycodone may also be used for purposes not listed in this medication guide. What should I discuss with my healthcare provider before using oxycodone? You should not use oxycodone if you are allergic to it, or if you have: ? severe asthma or breathing problems; or ?? a blockage in your stomach or intestines. You should not use oxycodone unless you are already using a similar opioid medicine and are tolerant to it. Most brands of oxycodone are not approved for use in people under 18. OxyContin should not be given to a child younger than 11 years old. Tell your doctor if you have ever had: ? breathing problems, sleep apnea; ?? a head injury, or seizures; ?? drug or alcohol addiction, or mental illness; ?? liver or kidney disease; ?? urination problems; or ?? problems with your gallbladder, pancreas, or thyroid. If you use opioid medicine while you are , your baby could become dependent on the drug. This can cause life-threatening withdrawal symptoms in the baby after it is born. Babies born dependent on opioids may need medical treatment for several weeks. Do not breast-feed. Oxycodone can pass into breast milk and may cause drowsiness, breathing problems, or in a nursing baby. How should I use oxycodone? Follow the directions on your prescription label and read all medication guides. Never use oxycodone in larger amounts, or for longer than prescribed. Tell your doctor if you feel an increased urge to take more of this medicine. Never share opioid medicine with another person, especially someone with a history of drug abuse or addiction. MISUSE CAN CAUSE ADDICTION, OVERDOSE, OR . Keep the medication in a place where others cannot get to it. Selling or giving away opioid medicine is against the law. Stop taking all other lxkwpb-dlg-nppfm narcotic pain medicines when you start taking extended-release oxycodone. Take oxycodone with food. Swallow the capsule or tablet whole to avoid exposure to a potentially fatal overdose. Do not crush, chew, break, open, or dissolve. Never crush or break an oxycodone pill to inhale the powder or mix it into a liquid to inject the drug into your vein. This can cause in . Measure liquid medicine carefully. Use the dosing syringe provided, or use a medicine dose-measuring device (not a kitchen spoon). You should not stop using oxycodone suddenly. Follow your doctor's instructions about tapering your dose. Store at room temperature, away from heat, moisture, and light. Keep track of your medicine. Oxycodone is a drug of abuse and you should be aware if anyone is using your medicine improperly or without a prescription. Do not keep leftover opioid medication. Just one dose can cause in someone using this medicine accidentally or improperly. Ask your pharmacist where to locate a drug take-back disposal program. If there is no take-back program, flush the unused medicine down the toilet. What happens if I miss a dose? Since oxycodone is used for pain, you are not likely to miss a dose. Skip any missed dose if it is almost time for your next dose. Do not use two doses at one time. What happens if I overdose? Seek emergency medical attention or call the Poison Help line at . An oxycodone overdose can be fatal, especially in a child or other person using the medicine without a prescription. Overdose can cause severe muscle weakness, pinpoint pupils, very slow breathing, extreme drowsiness, or coma. What should I avoid while using oxycodone? Do not drink alcohol. Dangerous side effects or could occur. Avoid driving or operating machinery until you know how oxycodone will affect you. Dizziness or severe drowsiness can cause falls or other accidents. Avoid medication errors. Always check the brand and strength of oxycodone you get from the pharmacy. What are the possible side effects of oxycodone? Get emergency medical help if you have signs of an allergic reaction: hives; difficult breathing; swelling of your face, lips, tongue, or throat. Opioid medicine can slow or stop your breathing, and may occur. A person caring for you should seek emergency medical attention if you have slow breathing with long pauses, blue colored lips, or if you are hard to wake up. Call your doctor at once if you have: ? noisy breathing, sighing, shallow breathing, breathing that stops during sleep; ?? a slow heart rate or weak pulse; ?? a light-headed feeling, like you might pass out; ?? confusion, unusual thoughts or behavior; ?? seizure (convulsions); or ?? low cortisol levels-- nausea, vomiting, loss of appetite, dizziness, worsening tiredness or weakness. Seek medical attention right away if you have symptoms of serotonin syndrome, such as: agitation, confusion, fever, sweating, fast heart rate, chest pain, feeling short of breath, muscle stiffness, trouble walking, or feeling faint. Serious side effects may be more likely in older adults and those who are malnourished or debilitated. Long-term use of opioid medication may affect fertility (ability to have children) in men or women. It is not known whether opioid effects on fertility are permanent. Common side effects may include: ? drowsiness, headache, dizziness, tiredness; or ?? constipation, stomach pain, nausea, vomiting. This is not a complete list of side effects and others may occur. Call your doctor for medical advice about side effects. You may report side effects to FDA at 8-142-OOR-3898. What other drugs will affect oxycodone? You may have breathing problems or withdrawal symptoms if you start or stop taking certain other medicines. Tell your doctor if you also use an antibiotic, antifungal medication, heart or blood pressure medication, seizure medication, or medicine to treat HIV or hepatitis C. Opioid medication can interact with many other drugs and cause dangerous side effects or . Be sure your doctor knows if you also use: ? cold or allergy medicines, bronchodilator asthma/COPD medication, or a diuretic ('water pill'); ?? medicines for motion sickness, irritable bowel syndrome, or overactive bladder; ?? other narcotic medications--opioid pain medicine or prescription cough medicine; ?? a sedative like Valium--diazepam, alprazolam, lorazepam, Xanax, Klonopin, Versed, and others; ?? drugs that make you sleepy or slow your breathing--a sleeping pill, muscle relaxer, medicine to treat mood disorders or mental illness; or ?? drugs that affect serotonin levels in your body--a stimulant, or medicine for depression, Parkinson's disease, migraine headaches, serious infections, or nausea and vomiting. This list is not complete and many other drugs may affect oxycodone. This includes prescription and ijfg-rgl-tofbxtg medicines, vitamins, and herbal products. Not all possible drug interactions are listed here. Where can I get more information? Your pharmacist can provide more information about oxycodone. Remember, keep this and all other medicines out of the reach of children, never share your medicines with others, and use this medication only for the indication prescribed. Every effort has been made to ensure that the information provided by [employer]. ('[employer]') is accurate, up-to-date, and complete, but no guarantee is made to that effect. Drug information contained herein may be time sensitive. [employer] information has been compiled for use by healthcare practitioners and consumers in the [place] and therefore [employer] does not warrant that uses outside of the [place] are appropriate, unless specifically indicated otherwise. [employer] drug information does not endorse drugs, diagnose patients or recommend therapy. [employer] drug information is an informational resource designed to assist licensed healthcare practitioners in caring for their patients and/or to serve consumers viewing this service as a supplement to, and not a substitute for, the expertise, skill, knowledge and judgment of healthcare practitioners. The absence of a warning for a given drug or drug combination in no way should be construed to indicate that the drug or drug combination is safe, effective or appropriate for any given patient. [employer] does not assume any responsibility for any aspect of healthcare administered with the aid of information [employer] provides. The information contained herein is not intended to cover all possible uses, directions, precautions, warnings, drug interactions, allergic reactions, or adverse effects. If you have questions about the drugs you are taking, check with your doctor, nurse or pharmacist. Copyright 2993-1618 [employer]. Version: 13.03. Revision Date: 05/16/2019. gabapentin (GA ba PEN tin) Gralise, Horizant, Neurontin What is the most important information I should know about gabapentin? Some people have thoughts about suicide while taking this medicine. Children taking gabapentin may have behavior changes. Stay alert to changes in your mood or symptoms. Report any new or worsening symptoms to your doctor. Do not stop using gabapentin suddenly, even if you feel fine. What is gabapentin? Gabapentin is an anti-epileptic drug, also called an anticonvulsant. It affects chemicals and nerves in the body that are involved in the cause of seizures and some types of pain. Gabapentin is used in adults to treat nerve pain caused by herpes virus or shingles (herpes zoster). The Horizant brand of gabapentin is also used to treat restless legs syndrome (RLS). The Neurontin brand of gabapentin is also used to treat seizures in adults and children who are at least 3 years old. Use only the brand and form of gabapentin your doctor has prescribed. Check your medicine each time you get a refill to make sure you receive the correct form. Gabapentin may also be used for purposes not listed in this medication guide. What should I discuss with my healthcare provider before taking gabapentin? You should not use gabapentin if you are allergic to it. To make sure gabapentin is safe for you, tell your doctor if you have ever had: ? kidney disease (or if you are on dialysis); ?? diabetes; ?? depression, a mood disorder, or suicidal thoughts or actions; ?? a seizure (unless you take gabapentin to treat seizures); ?? liver disease; ?? heart disease; or ?? (for patients with RLS) if you are a day sleeper or work a car shifter. Some people have thoughts about suicide while taking this medicine. Your doctor should check your progress at regular visits. Your family or other caregivers should also be alert to changes in your mood or symptoms. It is not known whether this medicine will harm an unborn baby. Tell your doctor if you are or plan to become . Seizure control is very important during , and having a seizure could harm both mother and baby. Do not start or stop taking gabapentin for seizures without your doctor's advice, and tell your doctor right away if you become . Gabapentin can pass into breast milk, but effects on the nursing baby are not known. Tell your doctor if you are breast-feeding. How should I take gabapentin? Follow all directions on your prescription label. Do not take this medicine in larger or smaller amounts or for longer than recommended. The Horizant brand of gabapentin should not be taken during the day. For best results, take Horizant with food at about 5:00 in the evening. Both Gralise and Horizant should be taken with food. Neurontin can be taken with or without food. If you break a Neurontin tablet and take only half of it, take the other half at your next dose. Any tablet that has been broken should be used as soon as possible or within a few days. Do not crush, chew, or break an extended-release tablet. Swallow it whole. Measure liquid medicine with the dosing syringe provided, or with a special dose-measuring spoon or medicine cup. If you do not have a dose-measuring device, ask your pharmacist for one. If your doctor changes your brand, strength, or type of gabapentin, your dosage needs may change. Ask your pharmacist if you have any questions about the new kind of gabapentin you receive at the pharmacy. Do not stop using gabapentin suddenly, even if you feel fine. Stopping suddenly may cause increased seizures. Follow your doctor's instructions about tapering your dose. Wear a medical alert tag or carry an ID card stating that you have seizures. Any medical care provider who treats you should know that you take seizure medication. This medicine can cause unusual results with certain medical tests. Tell any doctor who treats you that you are using gabapentin. Store gabapentin tablets and capsules at room temperature away from light and moisture. Store the liquid medicine in the refrigerator. Do not freeze. What happens if I miss a dose? Take the missed dose as soon as you remember. Be sure to take the medicine with food. Skip the missed dose if it is almost time for your next scheduled dose. Do not take extra medicine to make up the missed dose. What happens if I overdose? Seek emergency medical attention or call the Poison Help line at . What should I avoid while taking gabapentin? This medicine may impair your thinking or reactions. Be careful if you drive or do anything that requires you to be alert. Avoid taking an antacid within 2 hours before or after you take gabapentin. Antacids can make it harder for your body to absorb gabapentin. Drinking alcohol with this medicine can cause side effects. What are the possible side effects of gabapentin? Get emergency medical help if you have signs of an allergic reaction: hives; difficult breathing; swelling of your face, lips, tongue, or throat. Seek medical treatment if you have a serious drug reaction that can affect many parts of your body. Symptoms may include: skin rash, fever, swollen glands, flu-like symptoms, muscle aches, severe weakness, unusual bruising, or yellowing of your skin or eyes. This reaction may occur several weeks after you began using gabapentin. Report any new or worsening symptoms to your doctor, such as: mood or behavior changes, anxiety, panic attacks, trouble sleeping, or if you feel impulsive, irritable, agitated, hostile, aggressive, restless, hyperactive (mentally or physically), depressed, or have thoughts about suicide or hurting yourself. Call your doctor at once if you have: ? increased seizures; ?? severe weakness or tiredness; ?? problems with balance or muscle movement; ?? upper stomach pain; ?? chest pain, new or worsening cough with fever, trouble breathing; ?? severe tingling or numbness; ?? rapid eye movement; or ?? kidney problems--little or no urination, painful or difficult urination, swelling in your feet or ankles. Some side effects are more likely in children taking gabapentin. Contact your doctor if the child taking this medicine has any of the following side effects: ? changes in behavior; ?? memory problems; ?? trouble concentrating; or ?? acting restless, hostile, or aggressive. Common side effects may include: ? headache, dizziness, drowsiness, tiredness; ?? swelling in your hands or feet; ?? problems with your eyes; ?? coordination problems; or ?? (in children) fever, nausea, vomiting. This is not a complete list of side effects and others may occur. Call your doctor for medical advice about side effects. You may report side effects to FDA at 0-685-BQD-1762. What other drugs will affect gabapentin? Taking gabapentin with other drugs that make you sleepy can worsen this effect. Ask your doctor before taking a sleeping pill, narcotic medication, muscle relaxer, or medicine for anxiety, depression, or seizures. Other drugs may interact with gabapentin, including prescription and whve-fiu-tfosiyf medicines, vitamins, and herbal products. Tell your doctor about all your current medicines and any medicine you start or stop using. Where can I get more information? Your pharmacist can provide more information about gabapentin. Remember, keep this and all other medicines out of the reach of children, never share your medicines with others, and use this medication only for the indication prescribed. documented in this encounter Plan of Treatment Not on file documented as of this encounter Visit Diagnoses Not on filedocumented in this encounter
--- OUTSIDE RECORDS SUMMARY | 2025-01-23 08:38 | XMS_ITS | Encounter Summary ---
Author Organization [employer] Address [address] [place] [address] Care Team Providers Care Fastener Sewing Machine Operator Name Role Phone Unavailable Primary Care Provider Unavailabl e Encounter Details Date Type Department Care Team (Late st Contact Info) Description 08/02/2019 Transcribed Document [facility] [place] [facility] [place] [address] ProviderSonia MD [address] [place], [place] [id number] Social History Tobacco Use Types Packs/Day Years Used Date Smoking Tobacco: Never Assessed Comments Unknown Sex and Gender Information Value Date Recorded Sex Assigned at Not on file Legal Sex Female 1:42 PM CDT Gender Identity Not on file Sexual Orientation Not on file documented as of this encounter Miscellaneous Notes * Cerner Conversion Note - Historical ProviderMD - 08/02/2019 5:00 AM NUT SHELLER Chart Check - Review Order Profile Entered On: 08/02/2019 4:11 EST Performed On: 08/02/2019 5:00 EST by Priti Davenport RN Chart Check Powerplans Initiated/Discontinued as Appropriate : Yes All Active Orders Reviewed : Yes Priti Davenport RN - 08/02/2019 4:11 EST Electronically signed by Raman [facility] Conversion Counter Caser Cerner at 11/19/2022 8:45 PM CDT documented in this encounter Plan of Treatment Not on file documented as of this encounter Visit Diagnoses Not on filedocumented in this encounter
--- OUTSIDE RECORDS SUMMARY | 2025-01-23 08:38 | XMS_ITS | Clinical Summary ---
Author Organization [employer] Address [address] [place] [address] Care Team Providers Care Floorman Name Role Phone Unavailable Primary Care Provider Unavailabl e Social History Tobacco Use Types Packs/Day Years Used Date Smoking Tobacco: Never Assessed Comments Unknown Sex and Gender Information Value Date Recorded Sex Assigned at Not on file Legal Sex Female 1:42 PM CDT Gender Identity Not on file Sexual Orientation Not on file Plan of Treatment Not on file
--- OUTSIDE RECORDS SUMMARY | 2025-01-23 08:38 | XMS_ITS | Encounter Summary ---
Author Organization [employer] Address [address] [place] [address] Care Team Providers Care Configuration Consultant Name Role Phone Unavailable Primary Care Provider Unavailabl e Encounter Details Date Type Department Care Team (Late st Contact Info) Description 07/22/2019 Transcribed Document [facility] [place] [facility] [place] [address] ProviderSonia MD [address] [place], [place] [phone] Social History Tobacco Use Types Packs/Day Years Used Date Smoking Tobacco: Never Assessed Comments Unknown Sex and Gender Information Value Date Recorded Sex Assigned at Not on file Legal Sex Female 1:42 PM CDT Gender Identity Not on file Sexual Orientation Not on file documented as of this encounter Miscellaneous Notes * Cerner Conversion Note - Historical ProviderMD - 07/22/2019 2:00 PM FORMAT PROOFREADER Pain Assessment Entered On: 07/22/2019 18:30 EST Performed On: 07/22/2019 15:46 EST by Aimee Willis RN Intervention Information: acetaminophen Performed by Aimee Willis RN on 07/22/2019 14:46:00 EST acetaminophen,1000mg Oral Pain Assessment Pain Assessment : Follow-up assessment Pain Scale Used : 0-10 Scale Aimee Willis RN - 07/22/2019 18:30 EST Pain Scale Intensity : Alternate pain scale used Aimee Willis RN - 07/22/2019 18:30 EST Image 4 - Images currently included in the form version of this document have not been included in the text rendition version of the form. documented in this encounter Plan of Treatment Not on file documented as of this encounter Visit Diagnoses Not on filedocumented in this encounter
--- OUTSIDE RECORDS SUMMARY | 2025-01-23 08:38 | XMS_ITS | Encounter Summary ---
Author Organization [employer] Address [address] [place] [address] Care Team Providers Care Dredge Pump Operator Name Role Phone Unavailable Primary Care Provider Unavailabl e Encounter Details Date Type Department Care Team (Late st Contact Info) Description 07/22/2019 Transcribed Document [facility] [place] [facility] [place] [address] ProviderSonia MD [address] [place] [id number] Social History Tobacco Use Types Packs/Day Years Used Date Smoking Tobacco: Never Assessed Comments Unknown Sex and Gender Information Value Date Recorded Sex Assigned at Not on file Legal Sex Female 1:42 PM CDT Gender Identity Not on file Sexual Orientation Not on file documented as of this encounter Miscellaneous Notes * Cerner Conversion Note - Sonia ProviderMD - 07/22/2019 11:20 AM CORE COMPOSER MACHINE TENDER Evaluation, Occupational Therapy Entered On: 07/22/2019 13:17 EST Performed On: 07/22/2019 12:49 EST by CAM KELLY, OTR/L General Information, OT Visit Type, OT : Initial evaluation Patient Orders : Order Date Order Ordering 07/22/2019 11:21 OT Evaluation and Treatment Ordered By: PEE NEWTON MD-ORT 07/22/2019 11:21 OT Treatment Instructions Ordered By: PEE NEWTON MD-ORCarmen Active Diagnoses : No Qualifying Diagnoses Therapy Diagnosis, OT : aftercare following joint replacement surgery R ATHA Admission Date : 07/22/2019 04:50 Assisted by, OT : Physical Therapist Personal Devices : Personal Devices Dentures, upper, Dentures, lower Assistive Devices : Assistive Devices Cane Precautions in Place : Fall prevention measures General Information Comment, OT : pt is a pleasant 63 y.o. female admitted s/p R ATHA performed by Dr. Newton and is WBAT. pt has a complicated medical history including dementia, migraines, fibromyalgia, h/o colon resection. family present and prior to bed mobility , family reports pt has much difficulty post op and coming out of anesthesia. CAM KELLY OTR/Cat - 07/22/2019 12:49 EST General Status Patient Received Status : Supine in bed, Bed alarm activated, Other: drain, O2, family present, scds , IV Treatment Start Time : 07/22/2019 12:27 EST Patient Left Status : Supine in bed, Bed alarm activated, RN/PCT informed, Family/Visitors at bedside, All needs met and within reach, Other: drain, O2, family, IV, scds RN/PCT Informed Comment : RN Ok'd to tx, ID and verified Treatment End Time : 07/22/2019 12:44 EST Treatment Time : 17 Minute(s) CAM KELLY OTR/Cat - 07/22/2019 12:49 EST History and Environment, OT Living Situation, Therapy : Home Patient Lives With : Spouse Persons Assisting Patient at Home : Spouse Professional Skilled Services : None Persons Providing Information : Child/Children, Spouse Home Equipment, Therapy : Cane, Commode, Shower Equipment, Wheelchair Cane : Cane, single point Commode : Toilet seat, elevated Shower Equipment Comment : built in seat Wheelchair : Wheelchair, standard Home Setup : One story Stairs : Yes Stair Location(s) : Outside Outside Stairs, Number of Steps : 1 CAM KELLY OTR/Cat - 07/22/2019 12:49 EST Prior LOF Bathing, OT : Assist needed Prior LOF Bed Mobility : Assist needed Prior LOF Upper Body Dressing, OT : Assist needed Prior LOF Lower Body Dressing, OT : Assist needed Prior LOF Toileting : Assist needed Prior LOF Transfer : Assist needed Prior LOF Grooming, OT : Assist needed Prior LOF for IADLs, OT : Assist needed CAM KELLY OTR/Cat - 07/22/2019 12:49 EST History and Environment Comment, OT : pt lives with her who supervises and assists with ADL as needed at baseline CAM KELLY OTR/Cat - 07/22/2019 12:49 EST Upper Extremity Right UE Active ROM : WFL Right UE Strength : WFL Left UE Active ROM : WFL Left UE Strength : WFL CAM KELLY OTR/L - 07/22/2019 12:49 EST Self Care/Home Management, OT Lower Body Dressing Assist Level, OT : Assist, total Bed/Chair/WC Device Comment : not able to transfer to chair at this time due to effects of anesthesia post op , pt unable to maintain sitting balance EOB , very drowsy, confused CAM KELLY OTR/Cat - 07/22/2019 12:49 EST Mobility Device/Prosthesis/Wt Bearing Weight Bearing Status Maintained : Yes Weight Bearing Status : As tolerated Functional Mobility Device : Gait belt, Walker, front wheel CAM KELLY OTR/Cat - 07/22/2019 12:49 EST Functional Mobility Mobility Grid Bed Scooting : Rehab Total assistance (Comment: x2 [CAM KELLY OTR/Cat - 07/22/2019 12:49 EST] ) Supine to Sit : Rehab Maximal assistance (Comment: x2 [CAM KELLY OTR/Cat - 07/22/2019 12:49 EST] ) Sit to Supine : Rehab Maximal assistance (Comment: x2 [CAM KELLY OTR/Cat - 07/22/2019 12:49 EST] ) CAM KELLY OTR/L - 07/22/2019 12:49 EST Functional MobilityComment : pt not able to transfer bed to chair at this time, pt is max x2 person supine to sit EOB, unable to maintain sitting balance requiring max x2 person , pt also very confused , per family pt has much difficulty post op coming out of anesthesia. CAM KELLY OTR/Cat - 07/22/2019 12:49 EST AM PAC Daily Activity Putting On/Taking Off Lower Body Clothes : Total Bathing (Washing, Rinsing, Drying) : Total Toileting Includes Toilet, Bedpan, Urinal : Total Putting On/Taking Off Upper Clothing : A lot Taking Care of Grooming : A lot Eating Meals : A lot AM-PAC Daily Activity Raw Score : 9 CAM KELLY OTR/Cat - 07/22/2019 12:49 EST Image 3 - Images currently included in the form version of this document have not been included in the text rendition version of the form. Activity Tolerance, OT Activity Comment : EOB <5 minutes CAM KELLY OTR/Cat - 07/22/2019 12:49 EST Neurological/Sensory Overall Sensory Response : Impaired Overall Sensory Response Comment : pt has neuropathy CAM KELLY OTR/Cat - 07/22/2019 12:49 EST Cognition Assessment, OT Orientation : Unable to assess Cognition Assessment Comment : oriented to self CAM KELLY OTR/Cat - 07/22/2019 12:49 EST Education OT Occupational Therapy Education Grid Activity of Daily Living Training : Needs further teaching Caregiver Training : Verbalizes understanding Functional Mobility Training : Needs further teaching CAM KELLY OTR/Cat - 07/22/2019 12:49 EST Indication Assessment, OT Occupational Therapy Indicated : Yes Problem List, OT : Impaired, bed mobility, Impaired, activities daily living, Impaired, cognition, Impaired, endurance tolerance, Impaired functional mobility, Impaired, joint mobility, Impaired, sitting balance, Impaired, standing balance, Impaired, strength, Impaired, transfers Potential Barriers, OT : Acuity of illness, Cognitive deficit, Pain Rehabilitation Potential, OT : Good CAM KELLY OTR/Cat - 07/22/2019 12:49 EST Plan of Care, OT OT Tx Plan/Goals Established w Patient : Yes OT Frequency Rehab : Other: 3-5x/week Other OT Treatment Provided This Date : ADL OT Duration Rehab : Seven Days OT Treatments Planned : Activities of daily living, Balance training, Caregiver training, Functional mobility training, Safety education, Therapeutic activities, Therapeutic exercises CAM KELLY OTR/Cat - 07/22/2019 12:49 EST Correction Goals, OT Other LTG Grid Goal #1 Goal #2 Goal : pt to perform functional ADL transfer min assist x2 person at rw level and cues pt to perform LB ADL task mod assist using AD PRN Date to Meet : 07/29/2019 EST 07/29/2019 EST Goal Status : Initial goal Initial goal CAM KELLY OTR/Cat - 07/22/2019 12:49 EST CAM KELLY OTR/Cat - 07/22/2019 12:49 EST Treatment Note Subjective Comment : pt agrees to tx Additional Objective Information : eval 8 ADL 9 minutes Assessment : pt to benefit from skilled OT while inpt s/p R ATHA for safe return home to [place] , pt currently an assist x2 person for bed mobility to EOB and maintain sitting balance . per family pt has much difficulty post op coming out of anesthesia. family reports took 2-3 days to safely transfer after her last surgery . will continue to monitor , pt may need rehab placement pending progress while in acute care Plan for Treatment : skilled OT 3-5x/week for 7 days CAM KELLY OTR/Cat - 07/22/2019 12:49 EST Pain Assessment Pain Scaled Used : FACES Pain Score Pre-Intervention : 2 CAM KELLY OTR/Cat - 07/22/2019 12:49 EST Image 1 - Images currently included in the form version of this document have not been included in the text rendition version of the form. [facility] OT Charges OT Selfcare/Hm Mgmt Ea 15 Min : 1 OT Eval Moderate Complexity : 1 CAM KELLY OTR/Cat - 07/22/2019 12:49 EST Electronically signed by Raman, [facility] Conversion Orchestra Musician Cerner at 11/19/2022 8:47 PM CDT documented in this encounter Plan of Treatment Not on file documented as of this encounter Visit Diagnoses Not on filedocumented in this encounter
--- OUTSIDE RECORDS SUMMARY | 2025-01-23 08:38 | XMS_ITS | Encounter Summary ---
Author Organization [employer] Address [address] [place] [address] Care Team Providers Care Historical Guide Name Role Phone Unavailable Primary Care Provider Unavailabl e Encounter Details Date Type Department Care Team (Late st Contact Info) Description 07/23/2019 Transcribed Document [facility] [place] [facility] [place] [address] ProviderSonia MD [address] [place], [place] [phone] Social History Tobacco Use Types Packs/Day Years Used Date Smoking Tobacco: Never Assessed Comments Unknown Sex and Gender Information Value Date Recorded Sex Assigned at Not on file Legal Sex Female 1:42 PM CDT Gender Identity Not on file Sexual Orientation Not on file documented as of this encounter Miscellaneous Notes * Cerner Conversion Note - Historical ProviderMD - 07/23/2019 6:00 AM SUPPORT ENGINEER Pain Assessment Entered On: 07/23/2019 6:31 EST Performed On: 07/23/2019 6:35 EST by DANTE MASCORRO, Men'S Custom Hair Piece Consultant-Nursing Intervention Information: acetaminophen Performed by DANTE MASCORRO, Men'S Custom Hair Piece Consultant-Nursing on 07/23/2019 05:35:00 EST acetaminophen,1000mg Oral Pain Assessment Pain Assessment : Follow-up assessment Pain Scale Used : FACES Pain Intervention, Drug : Medicated Pain Improved by Intervention : Yes DANTE MASCORRO, Men'S Custom Hair Piece Consultant-Nursing - 07/23/2019 6:30 EST Pain Scale Intensity : 2 DANTE MASCORRO, Men'S Custom Hair Piece Consultant-Nursing - 07/23/2019 6:30 EST Image 4 - Images currently included in the form version of this document have not been included in the text rendition version of the form. Electronically signed by Ivelisse Camargo Conversion Accessibility Lift Technician Cerner at 11/19/2022 8:42 PM CDT documented in this encounter Plan of Treatment Not on file documented as of this encounter Visit Diagnoses Not on filedocumented in this encounter
--- OUTSIDE RECORDS SUMMARY | 2025-01-23 08:38 | XMS_ITS | Encounter Summary ---
Author Organization [employer] Address [address] [place] [address] Care Team Providers Care Youth Associate Name Role Phone Unavailable Primary Care Provider Unavailabl e Encounter Details Date Type Department Care Team (Late st Contact Info) Description 07/23/2019 Transcribed Document [facility] [place] [facility] [place] [address] ProviderSonia MD [address] [place], [place] [phone] Social History Tobacco Use Types Packs/Day Years Used Date Smoking Tobacco: Never Assessed Comments Unknown Sex and Gender Information Value Date Recorded Sex Assigned at Not on file Legal Sex Female 1:42 PM CDT Gender Identity Not on file Sexual Orientation Not on file documented as of this encounter Miscellaneous Notes * Cerner Conversion Note - Historical ProviderMD - 07/23/2019 5:00 AM SOLDERING TECHNICIAN Chart Check - Review Order Profile Entered On: 07/23/2019 5:25 EST Performed On: 07/23/2019 5:00 EST by DANTE MASCORRO, Dope Edger-Nursing Chart Check Powerplans Initiated/Discontinued as Appropriate : Yes All Active Orders Reviewed : Yes DANTE MASCORRO, Dope Edger-Nursing - 07/23/2019 5:25 EST Electronically signed by Raman [facility] Conversion Medical Office Technology Instructor Fela at 11/19/2022 8:29 PM CDT documented in this encounter Plan of Treatment Not on file documented as of this encounter Visit Diagnoses Not on filedocumented in this encounter
--- OUTSIDE RECORDS SUMMARY | 2025-01-23 08:38 | XMS_ITS | Encounter Summary ---
Author Organization [employer] Address [address] [place] [address] Care Team Providers Care Folding Machine Setter Name Role Phone Unavailable Primary Care Provider Unavailabl e Encounter Details Date Type Department Care Team (Late st Contact Info) Description 07/22/2019 Transcribed Document [facility] [place] [facility] [place] [address] ProviderSonia MD [address] [place], [place] [phone] Social History Tobacco Use Types Packs/Day Years Used Date Smoking Tobacco: Never Assessed Comments Unknown Sex and Gender Information Value Date Recorded Sex Assigned at Not on file Legal Sex Female 1:42 PM CDT Gender Identity Not on file Sexual Orientation Not on file documented as of this encounter Miscellaneous Notes * Cerner Conversion Note - Historical ProviderMD - 07/22/2019 5:00 PM COMMUNICATION EQUIPMENT MECHANIC Chart Check - Review Order Profile Entered On: 07/22/2019 19:02 EST Performed On: 07/22/2019 17:00 EST by Aimee Willis, RN Chart Check Powerplans Initiated/Discontinued as Appropriate : Yes All Active Orders Reviewed : Yes Aimee Willis, RN - 07/22/2019 19:02 EST Electronically signed by Raman [facility] Conversion Hospice Superintendent Cerner at 11/19/2022 8:33 PM CDT documented in this encounter Plan of Treatment Not on file documented as of this encounter Visit Diagnoses Not on filedocumented in this encounter
--- OUTSIDE RECORDS SUMMARY | 2025-01-23 08:38 | XMS_ITS | Referral Summary ---
Author Organization [employer] Address [address] [place] [address] Care Team Providers Care Vp Site Name Role Phone Unavailable Primary Care Provider [...]
--- OUTSIDE RECORDS SUMMARY | 2025-01-23 08:38 | XMS_ITS | Encounter Summary ---
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 Name Role Phone Unavailable Primary Care Provider Unavailabl e Encounter Details Date Type Department Care Team (Late st Contact Info) Description 07/22/2019 Transcribed Document [facility] [place] [facility] [place] [address] ProviderSonia MD [address], [place] [id number] Social History Tobacco Use Types Packs/Day Years Used Date Smoking Tobacco: Never Assessed Comments Unknown Sex and Gender Information Value Date Recorded Sex Assigned at Not on file Legal Sex Female 1:42 PM CDT Gender Identity Not on file Sexual Orientation Not on file documented as of this encounter Miscellaneous Notes * [employer] Conversion Note - Sonia ProviderMD - 07/22/2019 8:11 AM [employer] Main OR PreOp Summary Primary Physician: PEE VILLAR MD-ORT Finalized Date/Time: 08/01/19 08:35:37 Pt. Name: PREMSANDIE CARDENAS Jovana /Sex: 1955 Female Med Rec #: [id number] Physician: PEE VILLAR MD-ORT Financial #: [id number] Pt. Type: I Room/Bed: 427/1 Admit/Disch: 07/22/19 04:50:00 - [place] [facility] [place] Case Times Entry 1 In Preop 07/22/19 05:30:00 Ready for Holding n/a Room Patient Ready for 07/22/19 06:35:00 Surgery Patient Out of Preop 07/22/19 07:35:00 Patient Out of n/a Holding Room Last Modified By: TIMOTHY OMALLEY 08/01/19 08:35:34 SJE PreOp Case Times Audit 08/01/19 08:35:34 Rn Admit: ZA Modifier: [email or web address] <+> 1 Patient Out of Preop Finalized By: TIMOTHY OMALLEY Document Signatures Signed By: TIMOTHY OMALLEY 08/01/19 08:35 Electronically signed by Raman [facility] Conversion Restaurant Management Internship Cerner at 11/19/2022 8:43 PM CDT documented in this encounter Plan of Treatment Not on file documented as of this encounter Visit Diagnoses Not on filedocumented in this encounter
--- OUTSIDE RECORDS SUMMARY | 2025-01-23 08:38 | XMS_ITS | Encounter Summary ---
Author Organization [employer] Address [address] [place] [id number] Care Team Providers Care Lead Pharmacy Technician Name Role Phone Unavailable Primary Care Provider Unavailabl e Encounter Details Date Type Department Care Team (Late st Contact Info) Description 07/22/2019 Transcribed Document [facility] Family Medicine [facility] [place] [address] ProviderSonia MD [address], [place] [id number] Social History Tobacco Use Types Packs/Day Years Used Date Smoking Tobacco: Never Assessed Comments Unknown Sex and Gender Information Value Date Recorded Sex Assigned at Not on file Legal Sex Female 1:42 PM CDT Gender Identity Not on file Sexual Orientation Not on file documented as of this encounter Miscellaneous Notes * Cerner Conversion Note - Sonia ProviderMD - 07/22/2019 8:11 AM CLINICAL OPERATIONS CONSULTANT [facility] [place] IntraOp Summary Primary Physician: PEE VILLAR MD-ORT Finalized Date/Time: 07/22/19 10:49:22 Pt. Name: PHYLLIS AMARO Jovana /Sex: 1955 Female Med Rec #: [id number] Physician: PEE VILLAR MD-ORT Financial #: [id number] Pt. Type: I Room/Bed: [facility]/4 Admit/Disch: 07/22/19 04:50:00 - Institution: [facility] Case Attendance Entry 1 Entry 2 Entry 3 Case Attendee Suzan Mora RN OTHER, ATTENDEE #2 OTHER, ATTENDEE #1 Role Performed Nail Mill Worker, First Cell Saver Art Sales Consultant Vendor Time In 07/22/19 07:39:00 07/22/19 07:55:00 07/22/19 07:39:00 Time Out 07/22/19 09:37:00 07/22/19 09:37:00 07/22/19 09:11:00 Procedure Hip Total Anterior Hip Total Anterior Hip Total Anterior Approach Approach Approach Other Attendee Chase JORDAN Superficial Wound Closed By: Last Modified By: Suzan Mora RN Wellnitz, Sara, RN Wellnitz, Sara, RN 07/22/19 09:37:19 07/22/19 09:37:19 07/22/19 09:37:19 Entry 4 Entry 5 Entry 6 Case Attendee MICHELLE CALL, SHRINK PIT OPERATOR LIONEL, MINE NEVAREZ PA-C Role Performed SHRINK PIT OPERATOR/Nurse Emergency Management Coordinator Scrub, Second Physician stores assistant Time In 07/22/19 07:39:00 07/22/19 07:39:00 07/22/19 08:45:00 Time Out 07/22/19 09:37:00 07/22/19 09:10:00 07/22/19 09:37:00 Procedure Hip Total Anterior Hip Total Anterior Hip Total Anterior Approach Approach Approach Other Attendee Superficial Wound Closed By: Last Modified By: Suzan Mora RN Wellnitz, Sara, RN Wellnitz, Sara, RN 07/22/19 09:37:19 07/22/19 09:37:19 07/22/19 09:37:19 Entry 7 Entry 8 Entry 9 Case Attendee Tad Rose, RADIOLOGIC MIHIR MADSEN (REF) GANGA MEDINA CSA TECHNOLOGIST Role Performed Air Crew Officer Scrub, Inventory Manager, First Time In 07/22/19 07:39:00 07/22/19 07:39:00 07/22/19 07:39:00 Time Out 07/22/19 09:11:00 07/22/19 09:37:00 07/22/19 08:45:00 Procedure Hip Total Anterior Hip Total Anterior Hip Total Anterior Approach Approach Approach Other Attendee Superficial Wound Closed By: Last Modified By: Suzan Mora RN Wellnitz, Sara, RN Wellnitz, Sara, RN 07/22/19 09:37:19 07/22/19 09:37:19 07/22/19 09:37:19 Entry 10 Entry 11 Case Attendee Aminah Au Scrub CHRISTENSEN, CHRISTIAN, Tech MD-ORT Role Performed Assistive Personnel Surgeon/Proceduralist, First Time In 07/22/19 07:39:00 07/22/19 08:08:00 Time Out 07/22/19 08:00:00 07/22/19 09:10:00 Procedure Hip Total Anterior Hip Total Anterior Approach Approach Other Attendee Superficial Wound Closed By: Last Modified By: Suzan Mora, RN Suzan Mora, NICOLASA 07/22/19 09:37:19 07/22/19 09:37:19 [facility] IntraOp Case Attendance Audit 07/22/19 09:37:19 Trench Trimmer Fine: MARVEL Modifier: MARVEL 1 <+> Time Out 1 <*> Procedure Hip Total Anterior Approach 2 <+> Time Out 2 <*> Procedure Hip Total Anterior Approach 3 <*> Procedure Hip Total Anterior Approach 4 <+> Time Out 4 <*> Procedure Hip Total Anterior Approach 5 <*> Procedure Hip Total Anterior Approach 6 <+> Time Out 6 <*> Procedure Hip Total Anterior Approach 7 <*> Procedure Hip Total Anterior Approach 8 <+> Time Out 8 <*> Procedure Hip Total Anterior Approach 9 <*> Procedure Hip Total Anterior Approach 10 <*> Procedure Hip Total Anterior Approach 11 <*> Procedure Hip Total Anterior Approach 07/22/19 09:24:13 Trench Trimmer Fine: MARVEL Modifier: GLORIAA 3 <+> Time Out 3 <*> Procedure Hip Total Anterior Approach 7 <+> Time Out 7 <*> Procedure Hip Total Anterior Approach 9 <+> Time Out 9 <*> Procedure Hip Total Anterior Approach 07/22/19 09:10:21 Trench Trimmer Fine: MARVEL Modifier: GLORIAA 1 <*> Case Attendee PEE VILLAR MD-ORT 1 <*> Role Performed Surgeon/Proceduralist, First 1 <*> Time In 07/22/19 08:08:00 1 <*> Procedure Hip Total Anterior Approach 2 <*> Case Attendee MICHELLE CALL SHRINK PIT OPERATOR 2 <*> Role Performed SHRINK PIT OPERATOR/Nurse Emergency Management Coordinator 2 <*> Time In 07/22/19 07:39:00 2 <*> Procedure Hip Total Anterior Approach 3 <*> Case Attendee MINE HERRERA PA-C 3 <*> Role Performed Physician stores assistant 3 <*> Time In 07/22/19 08:45:00 3 <*> Procedure Hip Total Anterior Approach 3 <+> Other Attendee 4 <*> Case Attendee Suzan Mora, RN 4 <*> Role Performed Nail Mill Worker, First 4 <*> Time In 07/22/19 07:39:00 4 <*> Procedure Hip Total Anterior Approach 5 <*> Case Attendee JONNATHAN FLOWERS 5 <*> Role Performed Scrub, Second 5 <*> Time In 07/22/19 07:39:00 5 <+> Time Out 5 <*> Procedure Hip Total Anterior Approach 6 <*> Case Attendee MIHIR MADSEN (REF) 6 <*> Role Performed Scrub, First 6 <*> Time In 07/22/19 07:39:00 6 <*> Procedure Hip Total Anterior Approach 7 <*> Case Attendee GANGA MEDINA CSA 7 <*> Role Performed Monotyper, First 7 <*> Time In 07/22/19 07:39:00 7 <*> Procedure Hip Total Anterior Approach 8 <*> Case Attendee Tad Rose, PHOTOSTATIC COPY MAKER 8 <*> Role Performed Air Crew Officer 8 <*> Time In 07/22/19 07:39:00 8 <*> Procedure Hip Total Anterior Approach 9 <*> Case Attendee OTHER, ATTENDEE #1 9 <*> Role Performed Vendor 9 <*> Time In 07/22/19 07:39:00 9 <*> Procedure Hip Total Anterior Approach 9 <-> Other Attendee Chase JORDAN 10 <*> Case Attendee OTHER, ATTENDEE #2 10 <*> Role Performed Cell Saver Art Sales Consultant 10 <*> Time In 07/22/19 07:55:00 10 <+> Time Out 10 <*> Procedure Hip Total Anterior Approach 11 <*> Case Attendee Aminah Au, Python Django Developer 11 <*> Role Performed Assistive Personnel 11 <*> Time In 07/22/19 07:39:00 11 <*> Time Out 07/22/19 08:00:00 11 <*> Procedure Hip Total Anterior Approach 07/22/19 08:47:02 Trench Trimmer Fine: MARVEL Modifier: MARVEL 3 <*> Time In 07/22/19 07:39:00 3 <*> Procedure Hip Total Anterior Approach 07/22/19 08:30:33 Trench Trimmer Fine: MARVEL Modifier: MARVEL <+> 11 Case Attendee <+> 11 Role Performed <+> 11 Time In <+> 11 Time Out <+> 11 Procedure 07/22/19 08:29:26 Trench Trimmer Fine: MARVEL Modifier: MARVEL 9 <*> Case Attendee OTHER, ATTENDEE 9 <*> Procedure Hip Total Anterior Approach <+> 10 Case Attendee <+> 10 Role Performed <+> 10 Time In <+> 10 Procedure 07/22/19 08:25:53 Trench Trimmer Fine: MARVEL Modifier: MARVEL 1 <*> Procedure Hip Total Anterior Approach 2 <+> Time In 2 <*> Procedure Hip Total Anterior Approach 3 <+> Time In 3 <*> Procedure Hip Total Anterior Approach 4 <+> Time In 4 <*> Procedure Hip Total Anterior Approach 5 <*> Role Performed Scrub, First 5 <+> Time In 5 <*> Procedure Hip Total Anterior Approach 6 <*> Role Performed Scrub, Second 6 <+> Time In 6 <*> Procedure Hip Total Anterior Approach 7 <+> Time In 7 <*> Procedure Hip Total Anterior Approach 8 <+> Time In 8 <*> Procedure Hip Total Anterior Approach 9 <+> Time In 9 <*> Procedure Hip Total Anterior Approach [facility] IntraOp Case Times Entry 1 Patient In Room Time 07/22/19 07:39:00 Out Room Time 07/22/19 09:37:00 Anesthesia Start Time 07/22/19 07:39:00 Stop Time 07/22/19 09:37:00 Anesthesia Ready 07/22/19 07:39:00 Surgery / Procedure Times Start Time 07/22/19 08:11:00 Stop Time 07/22/19 09:30:00 Last Modified By: Suzan Mora RN 07/22/19 09:37:14 [facility] IntraOp Case Times Audit 07/22/19 09:37:14 Trench Trimmer Fine: MARVEL Modifier: MARVEL <+> 1 Out Room Time <+> 1 Stop Time <+> 1 Stop Time [facility] IntraOp Cautery Entry 1 ESU Identification Cautery Type Monopolar ESU ID Number [id number] ID Type Hospital Number Cautery Settings Cut Setting 70 Coag Setting 70 ESU Grounding Pad Ground Pad Type Adult Grounding Pad Site Left thigh Grounding Pad Suzan Mora RN Applied By Grounding Pad Site Intact Skin Condition Before Cautery Grounding Pad Site Unchanged Skin Condition After Cautery Last Modified By: Suzan Mora RN 07/22/19 08:18:22 [facility] IntraOp Communication Entry 1 Entry 2 Communication To Family/Significant other Family/Significant other Comment PROCEDURE START CLOSING Communication By Suzan Mora RN Wellnitz, Sara, RN Date and Time 07/22/19 08:12:00 07/22/19 09:08:00 Last Modified By: Suzan Mora RN Wellnitz, Sara, RN 07/22/19 08:18:01 07/22/19 09:11:10 [facility] IntraOp Communication Audit 07/22/19 09:11:10 Trench Trimmer Fine: MARVEL Modifier: MARVEL <+> 2 Communication By <+> 2 Date and Time <+> 2 Communication To <+> 2 Comment [facility] IntraOp Counts Verification Entry 1 Entry 2 Procedure Hip Total Anterior Hip Total Anterior Approach Approach Count Info Count Type Sponge Sponge, Sharps Counts Verification Baseline/pre-procedure Before wound closure Sequence Count Results Not Applicable Correct, surgeon notified If Incorrect or Waived complete the Counts Action Taken form: If Intentional Retention, complete the Intential Retention form: Counts Performed By Count Performed By MIHIR MADSEN (REF) MIHIR MADSEN (REF) (Scrub) Count Performed By MINE HERRERA PA-C Wellnitz, Sara, RN (RN) Last Modified By: Suzan Mora RN Wellnitz, Sara, RN 07/22/19 08:18:39 07/22/19 09:10:50 [facility] IntraOp Counts Verification Audit 07/22/19 09:10:50 Trench Trimmer Fine: MARVEL Modifier: MARVEL 2 <*> Procedure Hip Total Anterior Approach 2 <+> Count Results 2 <+> Count Performed By (Scrub) 2 <+> Count Performed By (RN) [facility] IntraOp Counts Final Entry 1 Procedure Hip Total Anterior Approach Final Count Info Count Type Sponge, Sharps Counts Verification Skin Closure/end of Sequence procedure Count Results Correct, surgeon notified Counts Performed By Count Performed By MIHIR MADSEN (REF) (Scrub) Count Performed By Suzan Mora RN (RN) Last Modified By: Suzan Mora RN 07/22/19 09:30:27 [facility] IntraOp Counts Final Audit 07/22/19 09:30:27 Trench Trimmer Fine: MARVEL Modifier: MARVEL 1 <*> Procedure Hip Total Anterior Approach 1 <+> Count Results 1 <+> Count Performed By (Scrub) 1 <+> Count Performed By (RN) [facility] IntraOp Cultures and Spec Summary Entry 1 Cultrures and Specimens Specimen Ordered: Yes Test(s) Gross Analysis/Path-Lab Requested/Final Disposition Last Modified By: Suzan Mora RN 07/22/19 08:18:53 [facility] IntraOp Delays Entry 1 Delay Reason Surgeon late - called in Duration 9 Minute(s) Last Modified By: Suzan Mora RN 07/22/19 08:19:29 [facility] IntraOp Departure from OR Entry 1 Integumentary Assessment Integumentary WDL Assessment WDL Transfer/Handoff Transfer to PACU Phase I Handoff Method Bedside/Face to face Post-op Transport Bed (including Via specialty) Patient Transport MICHELLE CALL, Accompanied by Abby LAGUERRE Sara, RN Last Modified By: Suzan Mora RN 07/22/19 09:30:36 [facility] IntraOp Drains and Tubes Entry 1 Device Type Hemovac Size MED. Drain/Tube Activity Inserted Drain/Tube Suction Not applicable Device Location RIGHT HIP Method of Drainage Compression Last Modified By: Suzan Mora RN 07/22/19 08:19:44 [facility] IntraOp Dressing and Packing Entry 1 Type Dressing Location RIGHT H IP Wound Dressing Item Occlusive dressing, Skin Closure Glue Applied By GANGA MEDINA CSA Other Comments MEPILEX; DERMABOND Last Modified By: Suzan Mora RN 07/22/19 08:19:52 [facility] IntraOp Fire Risk Assessment Entry 1 Fire Info Surgical Site or 0- No Incision Above the Xyphoid Open O2 Source 0- No (Mask or Cannula) Available Ignition 1- Yes (ESU, Laser, Light Source) Fire Risk 1 Assessment Score Fire Score Fire Risk Yes Assessment Complete Fire Risk Suzan Mora RN Assessment Verified By Fire Risk 07/22/19 08:19:00 Assessment Verified Date/Time Fire Risk High Risk Protocol Yes Implemented Standard Fire Yes Safety Precautions Followed Last Modified By: Suzan Mora RN 07/22/19 08:19:56 [facility] IntraOp General Case Supervisor Boat Outfitting 1 Case Information OR OR 05 SJE Case Level 1 Room Verified Yes Wound Class I - Clean Specialty SN Orthopedic Anesthesia Type General ASA Class 3 Diagnosis Preop Diagnosis MODERATE DJD RIGHT HIP Postop Diagnosis SEE POST OP NOTE Last Modified By: Suzan Mora RN 07/22/19 08:45:56 [facility] IntraOp General Case Data Audit 07/22/19 08:45:56 Trench Trimmer Fine: MARVEL Modifier: MARVEL 1 <*> Preop Diagnosis DJD RIGHT HIP [facility] IntraOp Implant Log Entry 1 Entry 2 Entry 3 Type Implant (Synthetic) Implant (Synthetic) Implant (Synthetic) Implant Log Implant Type Hardware Hardware Hardware Tissue Implant Type Implant LINER LGCL CUP 54MM SZ SHELL ACETAB 52MM 3 STEM HIP ORIGIN Identification [id number] [id number] Description Implant Quantity 1 1 1 Implant Site RIGHT HIP RIGHT HIP RIGHT HIP Implant Identification Model Number Implant Identification Serial Number Implant [id number] Identification Lot Number Implant Paxeon Reconstruction Paxeon Reconstruction Paxeon Reconstruction Identification Microfilm Clerk Name: Implant [id number] Identification Catalog Number Implant Size Implant Has an Yes Yes Yes Expiration Date Implant Expiration 03/02/24 12/22/23 12/01/23 Date Wasted Radioactive Material Time Implanted Tissue Implant Continue for Tissue Implant Documentation Tissue Identification Number Graft Prep Per Microfilm Clerk Instructions: Tissue Preparation Method: Reconstitution Solution: Reconstitution Solution Lot Number Reconstitution Solution Expiration Date: Thawing Solution Thawing Solution Lot Number Thawing Solution Expiration Date Preparation Materials, Other Preparation Materials, Other Lot Number Preparation Materials, Other Expiration Date Tissue Prepared/Processed By Microfilm Clerk Paperwork Completed Implant Type Comment Last Modified By: Suzan Mora, Szuan Acuña RN Wellnitz, Sara, RN 07/22/19 09:09:53 07/22/19 09:09:53 07/22/19 09:45:20 Entry 4 Type Implant (Synthetic) Implant Log Implant Type Hardware Tissue Implant Type Implant HEAD FEM CERC [id number] 36MM Identification [id number] Description Implant Quantity 1 Implant Site RIGHT HIP Implant Identification Model Number Implant Identification Serial Number Implant [id number] Identification Lot Number Implant Paxeon Reconstruction Identification Microfilm Clerk Name: Implant [id number] Identification Catalog Number Implant Size Implant Has an Yes Expiration Date Implant Expiration 06/02/24 Date Wasted Radioactive Material Time Implanted Tissue Implant Continue for Tissue Implant Documentation Tissue Identification Number Graft Prep Per Microfilm Clerk Instructions: Tissue Preparation Method: Reconstitution Solution: Reconstitution Solution Lot Number Reconstitution Solution Expiration Date: Thawing Solution Thawing Solution Lot Number Thawing Solution Expiration Date Preparation Materials, Other Preparation Materials, Other Lot Number Preparation Materials, Other Expiration Date Tissue Prepared/Processed By Microfilm Clerk Paperwork Completed Implant Type Comment Last Modified By: Suzan Mora RN 07/22/19 09:45:20 [facility] Im[place] Log Audit 07/22/19 09:45:20 Trench Trimmer Fine: MARVEL Modifier: MARVEL <+> 3 Implant Identification Description <+> 3 Implant Identification Lot Number <+> 3 Implant Identification Microfilm Clerk Name: <+> 3 Implant Expiration Date <+> 3 Implant Identification Catalog Number <+> 4 Implant Identification Description <+> 4 Implant Identification Lot Number <+> 4 Implant Identification Microfilm Clerk Name: <+> 4 Implant Expiration Date <+> 4 Implant Identification Catalog Number 07/22/19 09:09:53 Trench Trimmer Fine: MARVEL Modifier: WELLNISA <+> 1 Implant Identification Description <+> 1 Implant Identification Lot Number <+> 1 Implant Identification Microfilm Clerk Name: <+> 1 Implant Expiration Date <+> 1 Implant Identification Catalog Number <+> 2 Implant Identification Description <+> 2 Implant Identification Lot Number <+> 2 Implant Identification Microfilm Clerk Name: <+> 2 Implant Expiration Date <+> 2 Implant Identification Catalog Number E IntraOp Intraoperative Assessment Entry 1 Handoff Method Bedside/Face to face Valid History / Yes Physical in Chart Preoperative Yes Checklist Reviewed/Evaluated Allergies Reviewed Yes Patient is Latex No Sensitive Isolation Not applicable Precautions Noted Level of WDL Consciousness (WDL = Alert, Oriented to Person, Place, and Time) Skin Assessment Yes Verified Present Upon IVs Arrival to OR Last Modified By: Suzan Mora RN 07/22/19 08:20:38 [facility] IntraOp Intraoperative Assessment Audit 07/22/19 08:20:38 Trench Trimmer Fine: MARVEL Modifier: MARISSAALESSANDRAIsael <+> 1 Patient is Latex Sensitive [facility] IntraOp Intraoperative Equipment Entry 1 Type Equipment Equipment Equipment Joselin Suction System ID Number [id number] Setting HIGH Intraop Monitoring Antiembolic Devices Antiembolic Devices Sequential compression device, knee high Antiembolic Device Left Location Antiembolic Device 5853 ID Number Scopes Photo/Video Documentation Photo No Video No Last Modified By: Suzan Mora RN 07/22/19 08:25:34 [facility] IntraOp Medication Admin Entry 1 Entry 2 Entry 3 Medication/Irrigant TRANEXAMIC ACID vancomycin 1Gm vial - ANESTHETIC 1000MG/10 ML [id number] COCKTAIL-VILLAR [id number] Combo Med List Time Administered Route of TOPICAL; MIXED W/ 25ML TOPICAL INJECTION Administration NACL Dose Dose 1000 1 Unit of Measure mg gram Volume 10ML Administered By PEE VILLAR CHRISTENSEN, CHRISTIAN, CHRISTENSEN, CHRISTIAN, MD-ORT MD-ORT MD-ORT Procedure Irrigation Irrigant Volume In Irrigant Volume Out Last Modified By: Suzan Mora RN Wellnitz, Sara, RN Wellnitz, Sara, RN 07/22/19 08:28:36 07/22/19 08:28:36 07/22/19 08:28:36 Entry 4 Medication/Irrigant heparin 1000units/ml 10ml - [id number] Combo Med List Time Administered Route of CELL SAVER Administration Dose Dose 56030 Unit of Measure units Volume 30ML Administered By OTHER, ATTENDEE #2 Procedure Irrigation Irrigant Volume In Irrigant Volume Out Last Modified By: Suzan Mora RN 07/22/19 08:29:49 [facility] IntraOp Medication Admin Audit 07/22/19 08:29:49 Trench Trimmer Fine: MARVEL Modifier: MARISSAALESSANDRAIsael 4 <*> Medication/Irrigant heparin 1000units/ml 10ml - [id number] <+> Administered By [facility] IntraOp Patient Positioning Entry 1 Procedure Hip Total Anterior Approach Body Position Supine Left Arm Position Secured across chest Right Arm Position Secured across chest Left Leg Position Traction Right Leg Position Traction Feet Uncrossed Yes Pressure Points Yes Checked Positioning Devices Table, Fracture, Pillows, Arm Board Device Position SECURE OPERATIVE SIDE ARM WITH KIRSTEN LING ACROSS CHEST-PAD WITH EGG CRATE OR PILLOW; NON-OP ARM ON ARM BOARD; WRAP BOTH FEET WITH COBAN; USE FOAM FOOT PADDING; WRAP OP SIDE FOOT WITH COBAN AFTER PUTTING IN BOOT; IF PT. IS 5' OR UNDER USE EXTENSIONS FOR BOOT Positioned By Suzan Mora, NICOLASA, MICHELLE CALL CRNA, Aminah Au, Python Django Developer Position Verified Positioning Yes Verified by Anesthesia Positioning Yes Verified by Surgeon Last Modified By: Suzan Mora RN 07/22/19 08:35:00 [facility] IntraOp Patient Positioning Audit 07/22/19 08:35:00 Trench Trimmer Fine: MARVEL Modifier: MARVEL 1 <*> Procedure Hip Total Anterior Approach 1 <*> Positioned By Suzan Mora RN [facility] IntraOp Sign In Entry 1 Patient, Site, Yes Procedure Identified Surgical Consent Yes Confirmed Relevant Surgical Yes Documents Available Surgical Site Yes Marked by person performing procedure Anesthesia Machine Yes Check Completed Medication Checks Yes Completed Allergies Yes Airway Difficult No Airway/Aspiration Risk Difficult Yes Airway/Aspiration Intervention Equipment Available Blood Loss Risk Yes Blood Loss Yes Intervention Equipment Prepared and Ready Blood Identifiers Yes Verified Per Policy Hypothermia Risk Yes Warming Measures Yes Taken Last Modified By: Suzan Mora RN 07/22/19 08:35:14 [facility] Intra Op Sign Out Entry 1 RN Confirmation Surgical Yes Procedure(s) Identified Instrument, Sponge Yes and Sharps Counts Correct/Documented Equipment Problems Yes Documented Specimen Labeled Yes Correctly Urinary Catheter N/A Documented in IView Ghotra Patient Yes Recovery Concerns Reviewed with Anesthesia Provider, Surgeon and RN Ghotra Patient Yes Management Concerns Reviewed with Anesthesia Provider, Surgeon and RN Safety Checklist Yes Elements Complete? RN Sign Out Suzan Mora, NICOLASA Signature RN Sign Out 07/22/19 09:11:00 Signature Date/Time Plan of Care Outcome - Fire Risk OUTCOME STATEMENT: Goal met Patient is free from injury related to surgical fire Plan of Care Outcome - Pt Positioning OUTCOME STATEMENT: Goal met Absence of signs and symptoms of positioning injury. Plan of Care Outcome - Skin Prep OUTCOME STATEMENT: Goal met Intraoperative care is consistent with measures to prevent infection Plan of Care Outcome - Xray/Images OUTCOME STATEMENT: Goal met Absence of observable signs or symptoms of radiation injury Plan of Care Outcome - Counts OUTCOME STATEMENT: Goal met Absence of signs and symptoms of injury related to extraneous objects Last Modified By: Suzan Mora RN 07/22/19 09:11:29 [facility] IntraOp Skin Prep Entry 1 Procedure Hip Total Anterior Approach Prescribed Yes Pre-Surgical Prep Completed Prep Area RIGHT HIP AND THIGH; WIPE WITH ALCOHOL FIRST, THEN DURAPREP X 2 Intraop Prep Integumentary WDL Assessment WDL Prep Agents DuraPrep, Alcohol Prep by Suzan Mora RN Hair Removal Methods No hair removal performed Last Modified By: Suzan Mora RN 07/22/19 10:49:21 [facility] IntraOp Skin Prep Audit 07/22/19 10:49:21 Trench Trimmer Fine: MARVEL Modifier: MARVEL 1 <+> Methods 1 <*> Procedure Hip Total Anterior Approach [facility] IntraOp Surgical Procedures Entry 1 Procedure Hip Total Anterior Approach Additional RIGHT TOTAL HIP Procedure ARTHROPLASTY DIRECT Description ANTERIOR Primary Procedure Yes Primary Surgeon PEE VILLAR MD-ORT Start 07/22/19 08:11:00 Stop 07/22/19 09:30:00 Anesthesia Type General Specialty SN Orthopedic Wound Class I - Clean Last Modified By: Suzan Mora RN 07/22/19 09:30:50 [facility] IntraOp Surgical Procedures Audit 07/22/19 09:30:50 Trench Trimmer Fine: MARVEL Modifier: MARVEL 1 <*> Procedure Hip Total Anterior Approach 1 <+> Stop [facility] IntraOp Temp Regulation Devices Entry 1 Temp Regulation Temperature Forced Air Warming Regulation Device device Temperature 4765 Regulation Device Serial/Unit Number Temperature Upper body Regulation Site Temperature MICHELLE CALL CRNA Regulation Device Applied by Last Modified By: Suzan Mora RN 07/22/19 08:35:45 [facility] IntraOp Time Out Entry 1 Procedure to be Hip Total Anterior Performed Approach Time Out Time Out Pause Time 07/22/19 08:10:00 All activity Yes suspended (unless life threatening emergency) Team Verbally Correct patient Confirms Information identity, Correct side and site are marked, Consent form is present and accurate, Agreement on the procedure to be done, Correct patient position, Relevant images/results properly labeled/appropriately displayed, Confirm antibiotics have been administered, Confirm the skin prep has dried, Confirm prosthesis/implant/devic e is present, Performed in location of procedure after prepped/draped Antibiotic Yes Prophylaxis Administered Or In Progress Within the Last 60 Minutes Beta Pinky Yes Administered Venous Yes Thromboembolism Prophylaxis Required Anticipated Critical Events Surgeon Critical or unexpected steps, Anticipated blood loss, Special equipment need, Special instrumentation need Anesthesia Provider None expected Nursing Assures Sterility of instruments, Equipment concerns or issues, Implant Availability Essential Imaging Yes Labeled and Displayed Last Modified By: Suzan Mora RN 07/22/19 08:36:21 [facility] IntraOp X-Ray and Images Entry 1 X-Ray/Imaging Type Fluoroscopy Fluoroscopy Type C-Arm Site RIGHT HIP AND PELVIS Counter Stitcher Name Tad Rose, PHOTOSTATIC COPY MAKER Protective Devices Yes Used Last Modified By: Suzan Mora RN 07/22/19 08:37:14 Case Comments <None> Finalized By: Suzan Mora, RN Document Signatures Signed By: Suzan Mora RN 07/22/19 09:45 Suzan Mora RN 07/22/19 10:49 Unfinalized History Date/Time Username Reason for Unfinalizing Freetext Reason for Unfinalizing 07/22/19 10:48 MARVEL Correct Documentation Electronically signed by Raman [facility] Conversion Child Custody Evaluator Cerner at 11/19/2022 8:33 PM CDT documented in this encounter Plan of Treatment Not on file documented as of this encounter Visit Diagnoses Not on filedocumented in this encounter
--- OUTSIDE RECORDS SUMMARY | 2025-01-23 08:38 | XMS_ITS | Encounter Summary ---
Author Organization [email or web address] Address [address] [place] [id number] Care Team Providers Care Electromedical Equipment Technician Name Role Phone Unavailable Primary Care Provider Unavailabl e Encounter Details Date Type Department Care Team (Late st Contact Info) Description 07/22/2019 Transcribed Document [facility] [place] [facility] [place] [address] ProviderSonia MD [address], [place] [id number] Social History Tobacco Use Types Packs/Day Years Used Date Smoking Tobacco: Never Assessed Comments Unknown Sex and Gender Information Value Date Recorded Sex Assigned at Not on file Legal Sex Female 1:42 PM CDT Gender Identity Not on file Sexual Orientation Not on file documented as of this encounter Miscellaneous Notes * Cerner Conversion Note - Sonia ProviderMD - 07/22/2019 2:31 PM 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 Living Situation : Home Patient Lives With : Spouse Emergency Contact #1 : Jose Emergency Contact # Emergency Contact #1 Relationship : spouse Emergency Contact #2 : -Angeline Emergency Contact #2 Phone Number : [phone] Emergency Contact #2 Relationship : -daughter Enter Doctors Name : Marc Rodriguez MD Does Patient have PCP Listed? : Yes Legal Guardian : No RAKEL WOODRUFF SW - 07/22/2019 14:31 EST Initial Assessment II Sensory and Motor Deficits : Other: Right Total Hip Current Home Treatments and Equipment : Bedside commode, Cane, Walker, Wheelchair RAKEL WOODRUFFRINKU - 07/22/2019 14:31 EST Discharge Needs I Anticipated Discharge Date : 07/25/2019 EST Anticipated Discharge To, CM : [facility] facility Current Home Treatment/Equipment : Current Home Treatment/Equipment No qualifying data available. Post Acute/Home Treatments : None Documentation Status Complete : Yes RAKEL WOODRUFF, RINKU - 07/22/2019 14:31 EST Discharge Needs II Professional Skilled Services : Professional Skilled Services No qualifying data available. Needs Assistance with Transportation : Maybe Discharge Options Discussed with Patient : DME, Home Health, Short term rehabilitation RAKEL WOODRUFF, RINKU - 07/22/2019 14:31 EST Narrative Note Narrative Note : Met with pt and spouse to assess d/c needs. pt is 63 yo female who resides in [place] with spouse. Pt has Right Total Knee Surgery this morning with Dr. Ramos. Spouse request SNF placement at D/C and states they were receommended by to go to the [facility]. They also have been to [facility] in the past and were pleased and would consider them as well. Pt has seen pt today and has also recommended SNF. Spouse states they will do outpatient PT after SNF placement. Spouse reports pt has Cane, Walker, Wheelchair at home. Will make referrals to [facility] and [facility] for SNF placement in [facility]. Pt has Medicare primary and would require 3 night stay. RAKEL WOODRUFFRINKU - 07/22/2019 14:31 EST documented in this encounter Plan of Treatment Not on file documented as of this encounter Visit Diagnoses Not on filedocumented in this encounter
--- OUTSIDE RECORDS SUMMARY | 2025-01-23 08:38 | XMS_ITS | Encounter Summary ---
Author Organization [employer] Address [address] [place] [address] Care Team Providers Care Enterprise Application Analyst Name Role Phone Unavailable Primary Care Provider Unavailabl e Encounter Details Date Type Department Care Team (Late st Contact Info) Description 08/02/2019 Transcribed Document [facility] [place] [address] ProviderSonia MD [address] [place] [id number] Social History Tobacco Use Types Packs/Day Years Used Date Smoking Tobacco: Never Assessed Comments Unknown Sex and Gender Information Value Date Recorded Sex Assigned at Not on file Legal Sex Female 1:42 PM CDT Gender Identity Not on file Sexual Orientation Not on file documented as of this encounter Miscellaneous Notes * Cerner Conversion Note - Sonia ProviderMD - 08/02/2019 12:56 [place] [address] SANDIE FRANK :1955 Visit Time:07/22/2019 Your Visit Summary Your Care Team Admitting Physician - IRINEO DECKER MD CHRISTENSEN, CHRISTIAN, MD-ORT Attending Physician - IRINEO DECKER MD CHRISTENSEN, CHRISTIAN, MD-ORT Primary Care Physician - LEOPOLDO TEJADA (REF)MD-PIETER Referring Physician - PEE VILLAR MD-ORT Your Diagnosis Hip fracture Idiopathic aseptic necrosis of right tibia, Idiopathic aseptic necrosis of right tibia These Are Your Goals To go to [facility] tomorrow. Discharge Vitals Temperature 36.4 ??C Heart Rate (Monitored) 62 Respiratory Rate 16 Blood Pressure 149/68 What to do next Instructions From Your Care Team Discharge Activity: Discharge Activity: Activity as tolerated Diet: Discharge Diet: Heart healthy diet Follow-Up Appointments Follow Up with PEE VILLAR MD-ORT When 09/05/2019 11:15 AM EST Comments Appointment has been made Where: [address] [place] [address]- Medications What How Much When Instructions Next Dose aspirin (aspirin 81 mg oral delayed release tablet) 1 Tablet(s) Oral Two Times A Day for 45 days tonight oxyCODONE (oxyCODONE 5 mg oral tablet) 2 Tablet(s) Oral Every 4 Hours as needed for Pain (Mild 1-3) anytime after 1pm albuterol (albuterol 2.5 mg/ 3 mL (0.083%) inhalation solution) 3 Milliliter(s) Inhalation Every 4 Hours as needed for as needed for wheezing albuterol (Ventolin HFA 90 mcg/ inh inhalation aerosol) 2 Puff(s) Inhalation Four Times A Day alendronate 70 Milligram(s) Oral Weekly weekly ascorbic acid (Vitamin C 500 mg oral tablet) 1 Tablet(s) Oral Every Day tomorrow am azelastine nasal (azelastine 205.5 mcg/ inh (0.15%) nasal spray) 2 [place](s) Nasal Two Times A Day as needed for for allergy symptoms tonight if needed bifidobacterium-lactobacillus (Probiotic Formula oral capsule) 1 Capsule(s) Oral Every Day tomorrow am biotin 5 Milligram(s) Oral At Bedtime tonight budesonide 1 Milligram(s) Nebulized Inhalation Every Day tomorrow am bupivacaine pain pump cholecalciferol (Decara 50,000 intl units oral capsule) 1 Capsule(s) Oral Every Two Weeks every 2 weeks cholecalciferol (Vitamin D3) 2,000 International Units Oral Every Day tomorrow am cyanocobalamin (cyanocobalamin 1000 mcg/ mL injectable solution) 1,000 Microgram(s) IntraMuscular Weekly weekly cycloSPORINE ophthalmic (Restasis 0.05% ophthalmic emulsion) 1 Drop(s) Eyes Both Every 12 hours tonight donepezil 23 Milligram(s) Oral Every Day tomorrow am DULoxetine (Cymbalta 30 mg oral delayed release capsule) 1 Capsule(s) Oral Every Evening tonight DULoxetine (Cymbalta 60 mg oral delayed release capsule) 1 Capsule(s) Oral Every Morning tomorrow am eszopiclone (Lunesta) 3 Milligram(s) Oral At Bedtime tonight famotidine 40 Milligram(s) Oral Two Times A Day tonight flax (Flax Seed Oil) 1,200 Milligram(s) Oral Two Times A Day tonight fluticasone nasal (Flonase) 1 [place](s) Nostrils Both Two Times A Day tonigt formoterol (Perforomist 20 mcg/ 2 mL inhalation solution) 2 Milliliter(s) Inhalation Two Times A Day using a continuous flow nebulizer tonight gabapentin (gabapentin 100 mg oral capsule) 1 Capsule(s) Oral Every Evening tonight hydrocortisone (hydrocortisone 10 mg oral tablet) 0.5 Tablet(s) Oral Two Times A Day tonight lamoTRIgine (lamoTRIgine 100 mg oral tablet) 1 Tablet(s) Oral Two Times A Day tonight levothyroxine (levothyroxine 100 mcg (0.1 mg) oral tablet) 1 Tablet(s) Oral Every Day tomorrow am loteprednol ophthalmic (Alrex 0.2% ophthalmic suspension) 1 Drop(s) Eyes Both Two Times A Day tonight lutein (Lutein 20 mg oral capsule) 1 Capsule(s) Oral Every Evening tonight melatonin (melatonin 10 mg oral capsule) 1 Capsule(s) Oral At Bedtime tonight memantine (memantine 5 mg oral tablet) 2 Tablet(s) Oral Two Times A Day tonight metoprolol (Metoprolol Tartrate 25 mg oral tablet) 0.5 Tablet(s) Oral Two Times A Day tonight montelukast (montelukast 10 mg oral tablet) 1 Tablet(s) Oral Every Day tomorrow am multivitamin (Multi Vitamin+) 1 Tablet(s) Oral Every Day tomorrow am QUEtiapine (QUEtiapine 300 mg oral tablet) 1 Tablet(s) Oral At Bedtime tonight rosuvastatin (Crestor 20 mg oral tablet) 1 Tablet(s) Oral At Bedtime tonight sodium bicarbonate (sodium bicarbonate 650 mg oral tablet) 1 Tablet(s) Oral Two Times A Day tonight Take your medications faithfully. Do NOT skip [...] cramping, rapid heartbeat, difficulty sleeping, and nervousness. Please dispose of unused and medications per your retail pharmacy guidance. Allergies Lyrica (Confusion) cephalexin (Blisters, Blisters) clindamycin (mouth blisters, Blisters, Blisters~mouth blisters) codeine erythromycin (Blisters, Blisters) meropenem Immunizations This Visit No Immunizations Found Education Materials What to expect after the Procedure: After the procedure, it is common to have: ??? Pain and swelling. ??? A small amount of blood or clear fluid coming from your incision for up to 7 days ??? It is normal to have a moderate amount of bleeding from the site of the drain that was pulled on the morning after surgery. You can hold pressure on the area for 3-5 minutes and cover with a bandage as needed. Diet: ??? Resume usual diet ??? No alcoholic beverages while taking pain medication ??? Drink 8-10 glasses of water a day to prevent constipation from pain medication ??? Increase fiber to help prevent constipation. Straining can cause increased pressure and pain in your incision area ??? Increase protein to promote healing Driving: ??? Do not drive until your health care provider approves. Ask your health care provider when it is safe to drive if you have an immobilizer on your knee. ??? Do not drive or operate heavy machinery while taking prescription pain medicine. ??? Do not drive for 24 hours if you received a sedative. Activity: ??? Do not lift anything that is heavier than 10 lb (4.5 kg) until your health care provider approves. ??? No strenuous activity ??? Avoid high-impact activities, including running, jumping rope, and jumping jacks. ??? Avoid sitting for a long time without moving. Get up and move around at least every few hours. ??? Keep legs elevated while seated and place surgery leg on 2-3 pillows, this will decrease swelling ??? Continue using walker until cleared by physical therapy Bathing: ??? Do not take baths, swim, or use a hot tub for one month after surgery. ??? May shower on the third day after surgery by covering incision with Glad Brand Press and Seal saran wrap. After showering, dry off completely BEFORE removing saran wrap. ??? Use Press and Seal saran wrap to shower for one month after surgery ??? You must be seated to shower until you are no longer using the walker Other: ??? Use ice therapy for 20-30 minutes at a time and leave off for 20-30 minutes at a time. Always keep a towel or cloth between the ice pack and your skin ??? Continue to use Incentive Spirometer 10 times an hour while awake for one month to help prevent pneumonia. ??? Wear compression stockimngs for 6 weeks. ??? DVT PROPHYLAXIS: Take Aspirin 81mg twice a day for 45 days. ??? Leave the dressing in place for 7 days then leave it open to air. Contact a health care provider if: ??? You have more redness, swelling, or pain around your incision. ??? You have more fluid or blood coming from your incision. ??? Your incision or drain site feels warm to the touch. ??? You have pus or a bad smell coming from your incision. ??? You have a fever. ??? Your incision breaks open after your health care provider removes your sutures, skin glue, or adhesive tape. ??? Your prosthesis feels loose. ??? You have knee pain that does not go away. DVT: Blood Clot Blood clots are a common risk after an orthopedic surgery Symptoms: ??? Swelling of your leg or arm, especially if one side is much worse. ??? Warmth and redness of your leg or arm, especially if one side is much worse. ??? Pain in your arm or leg. If the clot is in your leg, symptoms may be more noticeable or worse when you stand or walk. ??? A feeling of pins and needles, if the clot is in the arm. The symptoms of a DVT that has traveled to the lungs (pulmonary embolism, PE) usually start suddenly and include: ??? Shortness of breath while active or at rest. ??? Coughing or coughing up blood or blood-tinged mucus. ??? Chest pain that is often worse with deep breaths. ??? Rapid or irregular heartbeat. ??? Feeling light-headed or dizzy. ??? Fainting. ??? Feeling anxious. ??? Sweating. There may also be pain and swelling in a leg if that is where the blood clot started. How is this prevented? Exercise regularly. For at least 30 minutes every day, engage in: -Activity that involves moving your arms and legs. -Activity that encourages good blood flow through your body by increasing your heart rate. ??? Exercise your arms and legs every hour during long-distance travel (over 4 hours). ??? Drink plenty of water and avoid drinking alcohol while traveling. ??? Avoid sitting or lying in bed for long periods of time without moving your legs. ??? Maintain a weight that is appropriate for your height. Ask your health care provider what weight is healthy for you. ??? If you are a woman who is over 35 years of age, avoid unnecessary use of medicines that contain estrogen. These include control pills. ??? Do not smoke, especially if you take estrogen medicines. If you need help quitting, ask your health care provider. ??? Wear compression stockings (if told by your health care provider) to help prevent blood clots from forming. High Fiber/High Protein Diet High fiber foods: To prevent constipation Grains Whole-grain breads. Multigrain cereal. Oats and oatmeal. Brown rice. Barley. Bulgur wheat. Millet. Bran muffins. Popcorn. [place] wafer crackers. Vegetables Sweet potatoes. Spinach. Kale. Artichokes. Cabbage. Broccoli. Green peas. Carrots. Squash. Fruits Berries. Pears. Apples. Oranges. Avocados. Prunes and raisins. Dried figs. Meats and Other Protein Sources [place], kidney, roland, and soy beans. Split peas. Lentils. Nuts and seeds. Dairy Fiber-fortified yogurt. Beverages Fiber-fortified soy milk. Fiber-fortified orange juice. Other Fiber bars. High-protein foods: To promote healing High-protein foods contain 4 grams (4 g) or more of protein per serving. They include: ??? Beef, ground sirloin (cooked) ??? 3 oz have 24 g of protein. ??? Cheese (hard) ??? 1 oz has 7 g of protein. ??? Chicken breast, boneless and skinless (cooked) ??? 3 oz have 13.4 g of protein. ??? Cottage cheese ??? 1/2 cup has 13.4 g of protein. ??? Egg ??? 1 egg has 6 g of protein. ??? Fish, filet (cooked) ??? 1 oz has 6???7 g of protein. ??? Garbanzo beans (canned or cooked) ??? 1/2 cup has 6???7 g of protein. ??? Kidney beans (canned or cooked) ??? 1/2 cup has 6???7 g of protein. ??? [place] (cooked) ??? 3 oz has 24 g of protein. ??? Milk ??? 1 cup (8 oz) has 8 g of protein. ??? Nuts (peanuts, pistachios, almonds) ??? 1 oz has 6 g of protein. ??? Peanut butter ??? 1 oz has 7???8 g of protein. ??? Pork tenderloin (cooked) ??? 3 oz has 18.4 g of protein. ??? Pumpkin seeds ??? 1 oz has 8.5 g of protein. ??? Soybeans (roasted) ??? 1 oz has 8 g of protein. ??? Soybeans (cooked) ??? 1/2 cup has 11 g of protein. ??? Soy milk ??? 1 cup (8 oz) has 5???10 g of protein. ??? Soy or vegetable lolis ??? 1 lolis has 11 g of protein. ??? Scio seeds ??? 1 oz has 5.5 g of protein. ??? Tofu (firm) ??? 1/2 cup has 20 g of protein. ??? Tuna (canned in water) ??? 3 oz has 20 g of protein. ??? Yogurt ??? 6 oz has 8 g of protein. Fall Prevention ??? Use night lights. ??? Install grab bars by the toilet and in the tub and shower. Do not use towel bars as grab bars. ??? Use non-skid mats or decals on the floor of the tub or shower. ??? If you need to sit down while you are in the shower, use a plastic, non-slip stool. ??? Keep the floor dry. Immediately clean up any water that spills on the floor. ??? Remove soap buildup in the tub or shower on a regular basis. ??? Remove throw rugs and other tripping hazards from the floor. ??? Place frequently used items in jtwv-hh-ozemc places ??? Keep electrical cables out of the way. ??? Do not leave any items on the stairs. ??? Make sure that there are handrails on both sides of the stairs. Fix handrails that are broken or loose. Make sure that handrails are as long as the stairways. ??? Check any carpeting to make sure that it is firmly attached to the stairs. Fix any carpet that is loose or worn. ??? Avoid having throw rugs at the top or bottom of stairways, or secure the rugs with carpet tape to prevent them from moving. ??? Wear closed-toe shoes that fit well and support your feet. Wear shoes that have rubber soles or low heels. ??? Use mobility aids as needed, such as canes, walkers, scooters, and crutches. ??? Turn on lights if it is dark. Replace any light bulbs that burn out. ??? Set up furniture so that there are clear paths. Keep the furniture in the same spot. ??? Be aware of any and all pets. ??? Review your medicines with your healthcare provider. Some medicines can cause dizziness or changes in blood pressure, which increase your risk of falling. Hand Washing You should wash your hands whenever you think they are dirty. You should also wash your hands: ??? After: ??? Working or playing outside. ??? Touching an animal or its toys or leash. ??? Handling livestock. ??? Using the bathroom. ??? Using household public health staff nurse or toxic chemicals. ??? Touching or taking out the garbage. ??? Touching anything dirty around your home. ??? Handling soiled clothes or rags. ??? Taking care of a sick child. This includes touching used tissues, toys, and clothes. ??? Sneezing, coughing, or blowing your nose. ??? Using public transportation. ??? Shaking hands. ??? Using a phone, including your mobile phone. ??? Touching money. ??? Before and after: ??? Preparing food. ??? Feeding a baby or young child. ??? Eating. ??? Visiting or taking care of someone who is sick. ??? Changing a diaper. ??? Changing a bandage (dressing) or taking care of an injury or wound. ??? Giving or taking medicine. If soap and [...] 4. Repeat the process for each step. ??? Always keep both feet within the width of the walker's legs or wheels. ??? When using your walker, you should not feel like you need to lean forward or to the side to keep your hands on the handgrips. ??? Make sure you are following any weight-bearing instructions that your health care provider has given you. ??? Be careful not to let the walker get too far ahead of you as you walk. ??? If your walker does not glide well [...] 5. Step down with your stronger leg. tramadol (TRAM a dol) [place], [place], Ultram ER What is the most important [...] extended-release form of this medicine is for dboqvo-mdn-wkuif treatment of pain. This form of tramadol is not for use on an as-needed basis for pain. Tramadol may also be used for purposes not listed in this medication guide. What should I discuss with my healthcare provider before taking tramadol? You should not take tramadol if you are allergic to it, or if you have: ?? severe asthma or breathing problems; ?? a [...] be higher if you have ever had: ?? a head injury, epilepsy or other seizure disorder; ?? drug or alcohol addiction; or ?? a metabolic disorder. Tell your doctor if you have ever had: ?? breathing problems, sleep apnea; ?? liver or [...] against the law. Stop taking all other axhcpl-snk-dyhjj narcotic pain medications when you start taking [...] your doctor at once if you have: ?? noisy breathing, sighing, shallow breathing, breathing that [...] are permanent. Common side effects may include: ?? constipation, nausea, vomiting, stomach pain; ?? dizziness, drowsiness, tiredness; ?? headache; or ?? itching. This is not a complete list of side effects and others may occur. Call your doctor for medical advice about side effects. You may report side effects to FDA at 8-990-XFX-8162. What other drugs will affect tramadol? You [...] your doctor knows if you also use: ?? cold or allergy medicines, bronchodilator asthma/COPD medication, [...] may affect tramadol. This includes prescription and mmdo-wzh-cdmzcep medicines, vitamins, and herbal products. Not all [...] to ensure that the information provided by [employer]') is accurate, up-to-date, and complete, but no guarantee is made to that effect. Drug information contained herein may be time sensitive. [employer] information has been compiled for use by healthcare practitioners and consumers in the [place] and therefore [employer] does not warrant that uses outside of the [place] are appropriate, unless specifically indicated otherwise. [employer] [facility] drug information does not endorse drugs, diagnose patients or recommend therapy. [employer] drug information is an informational resource designed [...] effective or appropriate for any given patient. [employer] does not assume any responsibility for any aspect of healthcare administered with the aid of information [employer] provides. The information contained herein is not intended to cover all possible uses, directions, precautions, warnings, drug interactions, allergic reactions, or adverse effects. If you have questions about the drugs you are taking, check with your doctor, nurse or pharmacist. Copyright 7308-7604 [employer]. Version: 20.. Revision Date: 05/16/2019. oxycodone (ox i KOE [...] The extended-release form of oxycodone is for hvwwsb-dkn-ksmyu treatment of pain and should not be used on an as-needed basis for pain. Oxycodone may also be used for purposes not listed in this medication guide. What should I discuss with my healthcare provider before using oxycodone? You should not use oxycodone if you are allergic to it, or if you have: ?? severe asthma or breathing problems; or ?? [...] your doctor if you have ever had: ?? breathing problems, sleep apnea; ?? a head [...] against the law. Stop taking all other jzhvzs-gad-feaxl narcotic pain medicines when you start taking [...] your doctor at once if you have: ?? noisy breathing, sighing, shallow breathing, breathing that [...] are permanent. Common side effects may include: ?? drowsiness, headache, dizziness, tiredness; or ?? constipation, stomach pain, nausea, vomiting. This is not a complete list of side effects and others may occur. Call your doctor for medical advice about side effects. You may report side effects to FDA at 0-626-JWB-7484. What other drugs will affect oxycodone? You [...] your doctor knows if you also use: ?? cold or allergy medicines, bronchodilator asthma/COPD medication, [...] may affect oxycodone. This includes prescription and dqio-ghj-kkazxbw medicines, vitamins, and herbal products. Not all [...] to ensure that the information provided by [employer]') is accurate, up-to-date, and complete, but no guarantee is made to that effect. Drug information contained herein may be time sensitive. [employer] information has been compiled for use by healthcare practitioners and consumers in the [place] and therefore [employer] does not warrant that uses outside of the [place] are appropriate, unless specifically indicated otherwise. [facility] drug information does not endorse drugs, diagnose patients or recommend therapy. [employer] [facility] drug information is an informational resource designed [...] effective or appropriate for any given patient. [employer] does not assume any responsibility for any aspect of healthcare administered with the aid of information [employer] provides. The information contained herein is not intended to cover all possible uses, directions, precautions, warnings, drug interactions, allergic reactions, or adverse effects. If you have questions about the drugs you are taking, check with your doctor, nurse or pharmacist. Copyright 4578-8016 [employer]. Version: 13.03. Revision Date: 05/16/2019. hydromorphone (oral) (NAOMI saeed) Dilaudid, Exalgo What is the most important information [...] extended-release form of this medicine is for ykkzxg-ptb-svdar treatment of moderate to severe pain, not for use on an as-needed basis for pain. Hydromorphone may also be used for purposes not listed in this medication guide. What should I discuss with my healthcare provider before using hydromorphone? You should not take this medicine if you have ever had an allergic reaction to hydromorphone or other narcotic medicines, or if you have: ?? severe asthma or breathing problems; ?? a [...] your doctor if you have ever had: ?? a head injury, brain tumor, or seizures; [...] against the law. Stop taking all other mpjrqh-aaq-otcyh narcotic pain medications when you start taking [...] your doctor at once if you have: ?? noisy breathing, sighing, shallow breathing; ?? a [...] are permanent. Common side effects may include: ?? drowsiness, tiredness; ?? dizziness; ?? headache; or ?? constipation, nausea, vomiting, stomach pain. This is not a complete list of side effects and others may occur. Call your doctor for medical advice about side effects. You may report side effects to FDA at 9-538-DGO-6790. What other drugs will affect hydromorphone? Opioid medication can interact with many other drugs and cause dangerous side effects or . Be sure your doctor knows if you also use: ?? other narcotic medications--opioid pain medicine or [...] drugs may affect hydromorphone, including prescription and ujxw-pac-iulvydr medicines, vitamins, and herbal products. Not all [...] to ensure that the information provided by [employer]') is accurate, up-to-date, and complete, but no guarantee is made to that effect. Drug information contained herein may be time sensitive. [employer] information has been compiled for use by healthcare practitioners and consumers in the [place] and therefore [employer] does not warrant that uses outside of the [place] are appropriate, unless specifically indicated otherwise. [facility] drug information does not endorse drugs, diagnose patients or recommend therapy. [facility] drug information is an informational resource designed [...] effective or appropriate for any given patient. [employer] does not assume any responsibility for any aspect of healthcare administered with the aid of information [employer] provides. The information contained herein is not intended to cover all possible uses, directions, precautions, warnings, drug interactions, allergic reactions, or adverse effects. If you have questions about the drugs you are taking, check with your doctor, nurse or pharmacist. Copyright 0963-1790 [employer]. Version: 9.02. Revision Date: 06/30/2018. oxycodone (ox [...] The extended-release form of oxycodone is for ovpygw-sqq-bibkz treatment of pain and should not be used on an as-needed basis for pain. Oxycodone may also be used for purposes not listed in this medication guide. What should I discuss with my healthcare provider before using oxycodone? You should not use oxycodone if you are allergic to it, or if you have: ?? severe asthma or breathing problems; or ?? [...] your doctor if you have ever had: ?? breathing problems, sleep apnea; ?? a head [...] against the law. Stop taking all other ugfijg-bvt-ritan narcotic pain medicines when you start taking [...] your doctor at once if you have: ?? noisy breathing, sighing, shallow breathing, breathing that [...] are permanent. Common side effects may include: ?? drowsiness, headache, dizziness, tiredness; or ?? constipation, stomach pain, nausea, vomiting. This is not a complete list of side effects and others may occur. Call your doctor for medical advice about side effects. You may report side effects to FDA at 3-986-IUB-1012. What other drugs will affect oxycodone? You [...] your doctor knows if you also use: ?? cold or allergy medicines, bronchodilator asthma/COPD medication, [...] may affect oxycodone. This includes prescription and yudi-vls-wnlanjc medicines, vitamins, and herbal products. Not all [...] to ensure that the information provided by [employer] ('[employer]') is accurate, up-to-date, and complete, but no guarantee is made to that effect. Drug information contained herein may be time sensitive. [employer] information has been compiled for use by healthcare practitioners and consumers in the [place] and therefore [employer] does not warrant that uses outside of the [place] are appropriate, unless specifically indicated otherwise. [employer]'s drug information does not endorse drugs, diagnose patients or recommend therapy. [facility] drug information is an informational resource designed [...] effective or appropriate for any given patient. [employer] does not assume any responsibility for any aspect of healthcare administered with the aid of information [employer] provides. The information contained herein is not intended to cover all possible uses, directions, precautions, warnings, drug interactions, allergic reactions, or adverse effects. If you have questions about the drugs you are taking, check with your doctor, nurse or pharmacist. Copyright 7429-9941 [employer]. Version: 13.03. Revision Date: 05/16/2019. gabapentin ([place] [...] your doctor if you have ever had: ?? kidney disease (or if you are on dialysis); ?? diabetes; ?? depression, a mood disorder, or suicidal thoughts or actions; ?? a seizure (unless you take gabapentin to treat seizures); ?? liver disease; ?? heart disease; or ?? (for patients with RLS) if you are a day sleeper or work a special diet cook. Some people have thoughts about suicide while [...] should know that you take seizure medication. documented in this encounter Plan of Treatment Not on file documented as of this encounter Visit Diagnoses Not on filedocumented in this encounter
--- OUTSIDE RECORDS SUMMARY | 2025-01-23 08:38 | XMS_ITS | Encounter Summary ---
Author Organization [employer] Address [address] [place] [address] Care Team Providers Care Compounding And Finishing Supervisor Name Role Phone Unavailable Primary Care Provider Unavailabl e Encounter Details Date Type Department Care Team (Late st Contact Info) Description 06/21/2020 Transcribed Document [facility] [place] [facility] [place] [address] ProviderSonia MD [address] [place] [address] [id number] Social History Tobacco Use Types Packs/Day Years Used Date Smoking Tobacco: Never Assessed Comments Unknown Sex and Gender Information Value Date Recorded Sex Assigned at Not on file Legal Sex Female 1:42 PM CDT Gender Identity Not on file Sexual Orientation Not on file documented as of this encounter Miscellaneous Notes * Cerner Conversion Note - Historical ProviderMD - 06/21/2020 8:45 AM PHILOSOPHY FACULTY MEMBER SWAPNIL Shin IntraOp Summary Primary Physician: ANIVAL BROWN MD-GAE Finalized Date/Time: 06/21/20 08:52:23 Pt. Name: ZACPHYLLIS CARDENAS Jovana /Sex: 1955 Female Med Rec #: [id number] Physician: ANIVAL BROWN MD-GAE Financial #: [id number] Pt. Type: E Room/Bed: [facility] [place]/ Admit/Disch: 06/21/20 06:39:00 - [place] [facility] [place] - Case Attendance Entry 1 Entry 2 Entry 3 Case Attendee ANIVAL BROWN MD-GAE WHITAKER, CARLY, RIDINGS, JAROLINE, RN DIRECTOR COMMUNITY ORGANIZATION-ANS Role Performed Surgeon/Proceduralist, DIRECTOR COMMUNITY ORGANIZATION/Nurse Brim Welt Sewing Machine Operator Education Program Specialist, First First Time In 06/21/20 08:36:00 06/21/20 08:36:00 06/21/20 08:36:00 Time Out 06/21/20 08:53:00 06/21/20 08:53:00 06/21/20 08:53:00 Procedure Colonoscopy Colonoscopy Colonoscopy Other Attendee Superficial Wound Closed By: Last Modified By: ANGEL BARAHONA, ANGEL TAVERAS, ANGEL TAVERAS RN 06/21/20 08:51:24 06/21/20 08:51:24 06/21/20 08:51:24 Entry 4 Entry 5 Entry 6 Case Attendee ARTURO Pollard RN ALEJANDRA RODRIGUEZ TECH LITTLE, MIGUEL OSORIO MD-ANS Role Performed Education Program Specialist, Second Scrub, First Anesthesiologist of Record Time In 06/21/20 08:36:00 06/21/20 08:36:00 06/21/20 08:36:00 Time Out 06/21/20 08:53:00 06/21/20 08:53:00 06/21/20 08:53:00 Procedure Colonoscopy Colonoscopy Colonoscopy Other Attendee Superficial Wound Closed By: Last Modified By: ANGEL BARAHONA RN RIDINGS, JAROLINE, ANGEL TAVERAS RN 06/21/20 08:51:24 06/21/20 08:51:24 06/21/20 08:51:24 [facility] - Case Attendance Audit 06/21/20 08:51:24 Screen Printing Press Operator: [id number] Modifier: [id number] <+> Time Out 1 <*> Procedure Colonoscopy 2 <+> Time Out 2 <*> Procedure Colonoscopy 3 <+> Time Out 3 <*> Procedure Colonoscopy 4 <+> Time Out 4 <*> Procedure Colonoscopy 5 <+> Time Out 5 <*> Procedure Colonoscopy 6 <+> Time Out 6 <*> Procedure Colonoscopy 06/21/20 08:47:03 Screen Printing Press Operator: [id number] Modifier: [id number] <+> 1 Procedure 2 <+> Time In 2 <*> Procedure Colonoscopy 3 <+> Time In 3 <*> Procedure Colonoscopy 4 <+> Time In 4 <*> Procedure Colonoscopy 5 <+> Time In 5 <*> Procedure Colonoscopy 6 <+> Time In 6 <*> Procedure Colonoscopy [facility] - Case Times Entry 1 Patient In Room Time 06/21/20 08:36:00 Out Room Time 06/21/20 08:53:00 Anesthesia Start Time 06/21/20 08:36:00 Stop Time 06/21/20 08:53:00 Anesthesia Ready 06/21/20 08:36:00 Surgery / Procedure Times Start Time 06/21/20 08:45:00 Stop Time 06/21/20 08:51:00 Last Modified By: ANGEL BARAHONA RN 06/21/20 08:51:21 [facility] - Case Times Audit 06/21/20 08:51:21 Screen Printing Press Operator: [id number] Modifier: [id number] <+> 1 Out Room Time <+> 1 Stop Time <+> 1 Stop Time 06/21/20 08:46:22 Screen Printing Press Operator: [id number] Modifier: [id number] <+> 1 Start Time [facility] - Delays Entry 1 Delay Reason No Delay Duration 0 Minute(s) Last Modified By: ANGEL BARAHONA RN 06/21/20 08:42:34 [facility] - Departure from OR Entry 1 Integumentary Assessment Integumentary WDL Assessment WDL Transfer/Handoff Transfer to PACU Phase I Post-op Transport Stretcher/Gurney Via Patient Transport HERACLIO PERLA, Accompanied by SHADE-BROOKLYN DAMICO JAROLINE, RN Last Modified By: ANGEL BARAHONA RN 06/21/20 08:42:44 [facility] - Endoscopy Details Entry 1 Abdomen Procedure Soft, Non-Tender Assessment Procedure Abdomen 06/21/20 08:37:00 Assessment D/T Radio Frequency Ablation Abdominal Pressure Last Modified By: ANGEL BARAHONA RN 06/21/20 08:43:06 [facility] - Fire Risk Assessment Entry 1 Fire Info Surgical Site or 0- No Incision Above the Xyphoid Open O2 Source 1- Yes (Mask or Cannula) Available Ignition 1- Yes (ESU, Laser, Light Source) Fire Risk 2 Assessment Score Fire Score Fire Risk Yes Assessment Complete Fire Risk ANGEL BARAHONA RN Assessment Verified By Fire Risk 06/21/20 08:37:00 Assessment Verified Date/Time Fire Risk High Risk Protocol Yes Implemented Standard Fire Yes Safety Precautions Followed Last Modified By: ANGEL BARAHONA RN 06/21/20 08:44:22 [facility] - General Case Transfer Machine Operator 1 Case Information OR Endo 01 E Case Level 1 Room Verified Yes Wound Class III - Contaminated Specialty SN Endovascular Anesthesia Type MAC ASA Class 3 Diagnosis Preop Diagnosis chage in bowel habit Postop Same As Preop No Postop Diagnosis normal post colectomy bowel Last Modified By: ANGEL BARAHONA RN 06/21/20 08:52:07 [facility] - General Case Data Audit 06/21/20 08:52:07 Screen Printing Press Operator: [id number] Modifier: [id number] <+> 1 Postop Diagnosis 06/21/20 08:50:45 Screen Printing Press Operator: [id number] Modifier: [id number] <+> 1 Specialty <+> 1 ASA Class <+> 1 Anesthesia Type <+> 1 Postop Same As Preop <+> 1 Preop Diagnosis <+> 1 Room Verified [facility] - Intraoperative Assessment Entry 1 Valid History / Yes Physical in Chart Preoperative Yes Checklist Reviewed/Evaluated Allergies Reviewed Yes Patient is Latex No Sensitive Isolation Not applicable Precautions Noted Skin Assessment Yes Verified Present Upon IVs, ECG monitored Arrival to OR Prosthetic/Assistive Pain Pump Devices Last Modified By: ANGEL BARAHONA RN 06/21/20 08:49:55 [facility] - Intraoperative Assessment Audit 06/21/20 08:49:55 Screen Printing Press Operator: [id number] Modifier: [id number] <+> 1 Prosthetic/Assistive Devices [facility] - Intraoperative Equipment Entry 1 Type Scope Equipment Intraop Monitoring Electrocardiogram Three lead placement (ECG) Electrode Placement Blood Pressure Non-Invasive BP Device Source Blood Pressure Arm, right upper Location Pulse Oximeter Hand, right Probe Site Antiembolic Devices Scopes Flexible Endoscopes Colonoscope, Peds Used Scope Serial [id number] Number/Identificatio n Number Photo/Video Documentation Photo Yes Video No Last Modified By: ANGEL BARAHONA RN 06/21/20 08:46:06 [facility] - Patient Positioning Entry 1 Procedure Colonoscopy Body Position Lateral, right side up Left Arm Position Resting at side Right Arm Position Resting at side Left Leg Position Uncrossed, parallel Right Leg Position Uncrossed, parallel Feet Uncrossed Yes Pressure Points Yes Checked Positioned By ANGEL BARAHONA, RN, HERACLIO PERLA, SHADE-ANS, MICHAEL, ALEJANDRA, ERICKSON Position Verified Positioning Yes Verified by Anesthesia Positioning Yes Verified by Surgeon Last Modified By: ANGEL BARAHONA RN 06/21/20 08:46:56 [facility] - Sign In Entry 1 Patient, Site, Yes Procedure Identified Surgical Consent Yes Confirmed Relevant Surgical Yes Documents Available Surgical Site N/A Marked by person performing procedure Medication Checks Yes Completed Allergies Yes Airway Difficult No Airway/Aspiration Risk Difficult Yes Airway/Aspiration Intervention Equipment Available Blood Loss Risk No Blood Loss No Intervention Equipment Prepared and Ready Blood Identifiers Not applicable Verified Per Policy Hypothermia Risk Yes Warming Measures Yes Taken Last Modified By: ANGEL BARAHONA RN 06/21/20 08:47:24 [facility] - Sign Out Entry 1 RN Confirmation Instrument, Sponge N/A and Sharps Counts Correct/Documented Equipment Problems N/A Documented Specimen Labeled Yes Correctly Urinary Catheter N/A Documented in IView Safety Checklist Yes Elements Complete? RN Sign Out ANGEL BARAHONA RN Signature RN Sign Out 06/21/20 08:53:00 Signature Date/Time Plan of Care Outcome - [...] of Care Outcome - Xray/Images OUTCOME STATEMENT: N/A Absence of observable signs or symptoms of radiation injury Plan of Care Outcome - Counts OUTCOME STATEMENT: Goal met Absence of signs and symptoms of injury related to extraneous objects Last Modified By: ANGEL BARAHONA RN 06/21/20 08:51:35 [facility] - Surgical Procedures Entry 1 Procedure Colonoscopy Additional WITH BIOPSY Procedure Description Primary Procedure Yes Primary Surgeon ANIVAL BROWN MD-GAURAV Start 06/21/20 08:45:00 Stop 06/21/20 08:51:00 Anesthesia Type MAC Specialty SN Gastroenterology Wound Class III - Contaminated Last Modified By: ANGEL BARAHONA RN 06/21/20 08:52:14 General Comments: patient has no cecum [facility] Endo - Surgical Procedures Audit 06/21/20 08:52:14 Screen Printing Press Operator: [id number] Modifier: [id number] <+> 1 Stop 06/21/20 08:47:59 Screen Printing Press Operator: [id number] Modifier: [id number] <*> Procedure Colonoscopy 1 <*> Procedure Colonoscopy 1 <*> Specialty [facility] - Time Out Entry 1 Procedure to be Colonoscopy Performed Time Out Time Out Pause Time 06/21/20 08:44:00 All activity Yes suspended (unless life threatening emergency) Team Verbally Correct patient Confirms Information identity, Consent form is present and accurate, Agreement on the procedure to be done, Correct patient position, Reconcile problems if responses among team members differ Antibiotic N/A Prophylaxis Administered Or In Progress Within the Last 60 Minutes Beta Pinky N/A Administered Venous N/A Thromboembolism Prophylaxis Required Anticipated Critical Events Surgeon None expected Last Modified By: ANGEL BARAHONA RN 06/21/20 08:44:56 Case Comments <None> Finalized By: ANGEL BARAHONA RN Document Signatures Signed By: ANGEL BARAHONA RN 06/21/20 08:52 Electronically signed by Raman [facility] Conversion Director Supply Chain Cerner at 11/19/2022 8:29 PM CDT documented in this encounter Plan of Treatment Not on file documented as of this encounter Visit Diagnoses Not on filedocumented in this encounter
--- OUTSIDE RECORDS SUMMARY | 2025-01-23 08:38 | XMS_ITS | Encounter Summary ---
Author Organization [employer] Address [address] [place] [address] Care Team Providers Care Vinyl Top Installer Name Role Phone Unavailable Primary Care Provider Unavailabl e Encounter Details Date Type Department Care Team (Late st Contact Info) Description 08/02/2019 Transcribed Document [facility] [place] Medicine [facility] [place] [address] ProviderSonia MD [address] [place], [place] [id number] Social History Tobacco Use Types Packs/Day Years Used Date Smoking Tobacco: Never Assessed Comments Unknown Sex and Gender Information Value Date Recorded Sex Assigned at Not on file Legal Sex Female 1:42 PM CDT Gender Identity Not on file Sexual Orientation Not on file documented as of this encounter Miscellaneous Notes * Cerner Conversion Note - Historical ProviderMD - 08/02/2019 10:44 AM REAL ESTATE SALESPERSON Stroke/Warfarin Instructions Entered On: 08/02/2019 10:44 EST Performed On: 08/02/2019 10:44 EST by Aimee Willis RN Stroke/Warfarin Instructions Stroke/TIA Discharge Ins : N/A Warfarin Discharge Ins : N/A Aimee Willis RN - 08/02/2019 10:44 EST Electronically signed by Raman [facility] Conversion Extractor Operator Cerner at 11/19/2022 8:43 PM CDT documented in this encounter Plan of Treatment Not on file documented as of this encounter Visit Diagnoses Not on filedocumented in this encounter
--- OUTSIDE RECORDS SUMMARY | 2025-01-23 08:38 | XMS_ITS | Encounter Summary ---
Author Organization [employer] Address [address] [place] [address] Care Team Providers Care Painter Mirror Name Role Phone Unavailable Primary Care Provider Unavailabl e Encounter Details Date Type Department Care Team (Late st Contact Info) Description 08/02/2019 Transcribed Document [facility] [place] [address] ProviderSonia MD [address] [place] [id number] Social History Tobacco Use Types Packs/Day Years Used Date Smoking Tobacco: Never Assessed Comments Unknown Sex and Gender Information Value Date Recorded Sex Assigned at Not on file Legal Sex Female 1:42 PM CDT Gender Identity Not on file Sexual Orientation Not on file documented as of this encounter Miscellaneous Notes * Cerner Conversion Note - Historical ProviderMD - 08/02/2019 1:27 PM NURSE DISCHARGE PLANNER Discharge Summary, PT Entered On: 08/02/2019 13:29 EST Performed On: 08/02/2019 13:27 EST by SUE HERNANDEZ PTA Discharge Summary Reason for Discharge : Discharged from hospital Discharged to, Therapy : Unit, rehabilitation SUE HERNANDEZ PTA - 08/02/2019 13:27 EST Discharge Summary Comment, PT : Patient will discharge tp rehab facility follow up from [facility] on 08/02/19 having met 1/3 acute therapy goals. At time of discharge patient was Ankita with bed mobility, Ankita x2 for transfers with RWx, ambulated ~ 195' Ankita x2 with RWx, and participated with LE exercises. Patient would continue to benefit from skilled PT services to improve LE strength, gait training, balance training, and promote return to PLOF. I agree with this discharge summary. Makeda Ann, PT MAKEDA ANN, PT - 08/02/2019 14:04 EST Grade School Teacher Goals Other PT LTG Grid Goal #1 Goal #2 Goal #3 Goal #4 Other : Pt will participate in therapeutic exercise training and be issued a written HEP in order to increase strength for improved gait and provide carryover into the home environment. Pt will transfer sup/sit and sit/stand with RWx and no more than Ankita to increase safety for mobility at acute care NH. Pt will amb at leats 25 feet with RWx and no more than Ankita without LOB or safety concerns to faciilitate household vs facility mobiity including bathroom useage. Pt will ascend/descend 1 platform step with RWx and no more than modAx1 without LOB or safety concerns to safely access home at acute care NH, or verbalize understaning for step/curb navigation if DC to rehab setting. Date to Meet : 07/29/2019 EST 07/29/2019 EST 07/29/2019 EST 07/29/2019 EST Goal Status : Goal met Progressing, continue Progressing, continue Discontinue Date Met : 07/28/2019 EST Comment : 08/02/19: pt being d/c to rehab prior to being d/c home with family SUE HERNANDEZ, COKE WHEELER - 08/02/2019 13:27 EST USE HERNANDEZ, COKE WHEELER - 08/02/2019 13:27 EST SUE HERNANDEZ, COKE WHEELER - 08/02/2019 13:27 EST SUE HERNANDEZ, COKE WHEELER - 08/02/2019 13:27 EST documented in this encounter Plan of Treatment Not on file documented as of this encounter Visit Diagnoses Not on filedocumented in this encounter
--- OUTSIDE RECORDS SUMMARY | 2025-01-23 08:38 | XMS_ITS | Encounter Summary ---
Author Organization [email or web address] Address [address] [place] [address] Care Team Providers Care Statement Clerks Manager Name Role Phone Unavailable Primary Care Provider Unavailabl e Encounter Details Date Type Department Care Team (Late st Contact Info) Description 08/02/2019 Transcribed Document [facility] [place] [facility] [place] [address] ProviderSonia MD [address] [place], [place] [id number] Social History Tobacco Use Types Packs/Day Years Used Date Smoking Tobacco: Never Assessed Comments Unknown Sex and Gender Information Value Date Recorded Sex Assigned at Not on file Legal Sex Female 1:42 PM CDT Gender Identity Not on file Sexual Orientation Not on file documented as of this encounter Miscellaneous Notes * Cerner Conversion Note - Historical ProviderMD - 08/02/2019 2:00 AM SECOND GRADE TEACHER Box Sorter Details Entered On: 08/02/2019 1:26 EST Performed On: 08/02/2019 2:00 EST by Priti Davenport RN Order Details Transport Mode Order Detail : Bed (including specialty) Isolation Precautions Order Detail : Standard Precautions Order Detail : 0 IV Order Detail : 0 Oxygen Order Detail : 0 Nurse Collect Order Detail : 0 Lift/Transfer : Moderate assist Central Line Order Detail : No Room Service : Appropriate Arterial Line : No Priti Davenport RN - 08/02/2019 1:26 EST Electronically signed by Ivelisse Camargo Conversion Financial Processing Clerk Cerner at 11/19/2022 8:44 PM CDT documented in this encounter Plan of Treatment Not on file documented as of this encounter Visit Diagnoses Not on filedocumented in this encounter
--- OUTSIDE RECORDS SUMMARY | 2025-01-23 08:38 | XMS_ITS | Encounter Summary ---
Author Organization [employer] Address [address] [place] [address] Care Team Providers Care Air Cargo Ground Crew Supervisor Name Role Phone Unavailable Primary Care Provider Unavailabl e Encounter Details Date Type Department Care Team (Late st Contact Info) Description 06/21/2020 Transcribed Document [facility] [place] [facility] [place] [address] ProviderSonia MD [address] [place] [address] Social History Tobacco Use Types Packs/Day Years Used Date Smoking Tobacco: Never Assessed Comments Unknown Sex and Gender Information Value Date Recorded Sex Assigned at Not on file Legal Sex Female 1:42 PM CDT Gender Identity Not on file Sexual Orientation Not on file documented as of this encounter Miscellaneous Notes * Cerner Conversion Note - Sonia ProviderMD - 06/21/2020 9:01 AM 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 Follow-Up Appointments Follow Up with ANIVAL BROWN MD-GAURAV When Comments See procedure report for instructions. Where: [address] [facility] [address] [place] [address]- [phone] Medications What How Much When Instructions Next Dose albuterol (albuterol 2.5 mg/ 3 mL (0.083%) inhalation solution) 3 Milliliter(s) Inhalation Every 4 Hours as needed for as needed for wheezing albuterol (Ventolin HFA 90 mcg/ inh inhalation aerosol) 2 Puff(s) Inhalation Four Times A Day ascorbic acid (Vitamin C 500 mg oral tablet) 1 Tablet(s) Oral Every Day azelastine nasal (azelastine 205.5 mcg/ inh (0.15%) nasal spray) 2 Faulkner(s) Nasal Two Times A Day as needed for for allergy symptoms bifidobacterium-lactobacillus (Probiotic Formula oral capsule) 1 Capsule(s) Oral Every Day biotin 5 Milligram(s) Oral At Bedtime budesonide 1 Milligram(s) Nebulized Inhalation Every Day bupivacaine pain pump cholecalciferol (Decara 50,000 intl units oral capsule) 1 Capsule(s) Oral Every Two Weeks cholecalciferol (Vitamin D3) 2,000 International Units Oral Every Day cyanocobalamin (cyanocobalamin 1000 mcg/ mL injectable solution) 1,000 Microgram(s) IntraMuscular Weekly cycloSPORINE ophthalmic (Restasis 0.05% ophthalmic emulsion) 1 Drop(s) Eyes Both Every 12 hours donepezil 23 Milligram(s) Oral Every Day DULoxetine (Cymbalta 30 mg oral delayed release capsule) 1 Capsule(s) Oral Every Evening DULoxetine (Cymbalta 60 mg oral delayed release capsule) 1 Capsule(s) Oral Every Morning eszopiclone (Lunesta) 3 Milligram(s) Oral At Bedtime fluticasone nasal (Flonase) 1 Faulkner(s) Nostrils Both Two Times A Day formoterol (Perforomist 20 mcg/ 2 mL inhalation solution) 2 Milliliter(s) Inhalation Two Times A Day using a continuous flow nebulizer gabapentin (gabapentin 100 mg oral capsule) 1 Capsule(s) Oral Every Evening hydrocortisone (hydrocortisone 10 mg oral tablet) 0.5 Tablet(s) Oral Two Times A Day lamoTRIgine (lamoTRIgine 100 mg oral tablet) 1 Tablet(s) Oral Two Times A Day levothyroxine (levothyroxine 100 mcg (0.1 mg) oral tablet) 1 Tablet(s) Oral Every Day loteprednol ophthalmic (Alrex 0.2% ophthalmic suspension) 1 Drop(s) Eyes Both Two Times A Day lutein (Lutein 20 mg oral capsule) 1 Capsule(s) Oral Every Evening melatonin (melatonin 10 mg oral capsule) 1 Capsule(s) Oral At Bedtime memantine (memantine 5 mg oral tablet) 2 Tablet(s) Oral Two Times A Day metoprolol (Metoprolol Tartrate 25 mg oral tablet) 0.5 Tablet(s) Oral Two Times A Day montelukast (montelukast 10 mg oral tablet) 1 Tablet(s) Oral Every Day multivitamin (Multi Vitamin+) 1 Tablet(s) Oral Every Day QUEtiapine (QUEtiapine 300 mg oral tablet) 1 Tablet(s) Oral At Bedtime rosuvastatin (Crestor 20 mg oral tablet) 1 Tablet(s) Oral At Bedtime sodium bicarbonate (sodium bicarbonate 650 mg oral tablet) 1 Tablet(s) Oral Two Times A Day Take your medications faithfully. Do NOT skip [...] Please dispose of unused and medications per pharmacy guidance. Education Materials Monitored Anesthesia Care, Care After These instructions [...] eating solid foods. General instructions ??? Take jvak-xqt-mdtkkeq and prescription medicines only as told by [...] 11/09/2016 Document Revised: 10/18/2018 Document Reviewed: 11/09/2016 [employer] Patient Education ?? 2020 [employer]. Hemorrhoids Hemorrhoids are swollen veins that may [...] 20 minutes to ease pain. Do this 3???4 times a day. You may do this [...] Leave the ice on for 20 minutes, 2???3 times a day. General instructions ??? Take ddez-fim-mcsopvo and prescription medicines only as told by [...] 20 minutes to ease pain. Do this 3???4 times a day. This information is not intended to replace advice given to you by your health care provider. Make sure you discuss any questions you have with your health care provider. Document Released: 04/28/2009 Document Revised: 07/28/2019 Document Reviewed: 12/09/2018 [employer] Patient Education ?? 2020 [employer]. Colonoscopy, Adult, Care After This sheet gives [...] soft and easy to digest. ??? Take rsmy-xrl-oaswtfc or prescription medicines only as told by [...] source. ? Leave the heat on for 20???30 minutes. ? Remove the heat if your [...] You have blood in your poop (stool) 2???3 days after the procedure. Get help right [...] 08/22/2011 Document Revised: 05/20/2018 Document Reviewed: 04/13/2017 Elsevier Patient Education ?? 2020 [employer] Emergency Awareness and Preventative Care STROKE is an EMERGENCY Every Minute Counts Act FAST and Check for these signs: FACE Does the face look uneven? ARM Does one arm drift down? SPEECH Does their speech sound strange? TIME Call 9-1-1 at any sign of stroke Stroke Risk Factors Atrial Fibrillation (irregular heartbeat) Diabetes Family history of stroke Heart Disease Heavy alcohol use High Blood Pressure High Cholesterol Physical inactivity and obesity Smoking Cigarette Smoking The facts are clear, cigarette smoking will shorten your life. Smoking can cause many illnesses along the way. As a healthcare provider, we recommend that you stop smoking. Assistance with quitting is available by contacting 4-198-WCACNOW. This is a free resource providing counseling, support, and referral. Or you may contact your personal physician. [place] Suicide Prevention Lifeline: The National Suicide Prevention Lifeline is a national network of local crisis centers that provides free and confidential emotional support to people in suicidal crisis or emotional distress 24 hours a day, 7 days a week. Don't Wait! Stop a Heart Attack Before it Starts What is a heart attack? A heart attack is damage or to a part of the heart from severely decreased or lack of blood flow to the heart. Over time, arteries can become narrow from the buildup of fat and cholesterol, which is called plaque. The plaque can rupture causing a blood clot to form. When the blood clot forms, the artery can become severely narrowed or completely blocked, causing a heart attack. Heart attack is the leading cause of in the [place]. 85% of muscle damage occurs within the first 2 hours. Delay in the recognition of heart attack symptoms increases the chances of . Know the early symptoms of a heart attack: Nausea Feeling of fullness in chest Jaw Pain Pain that travels down one or both arms Fatigue/being tired Anxiety Back Pain Chest pressure, squeezing, or discomfort Shortness of breath Sweating, or a cold sweat Feeling of impending doom There are unusual signs of a heart attack, too! Women, the elderly, and diabetics may present with atypical symptoms: Fainting/dizziness Weakness Confusion Risk Factors for a Heart Attack Some heart disease risk factors, such as age and family history, cannot be changed. Others, like smoking and lack of exercise, can be changed. Smoking High Cholesterol High Blood Pressure Family History Obesity Age Gender (Males are at higher risk) Lack of Exercise Diabetes Diet Stress Excessive Alcohol Intake If you or someone you know is experiencing the signs and symptoms of a heart attack, DON???T DELAY. Call immediately and seek help. If someone collapses, perform CPR! Do not attempt to drive if you are having symptoms of heart attack. Hands-Only CPR Why Hands-Only CPR? Hands-Only CPR has been shown to be as effective as conventional CPR for cardiac arrests that occur outside of a hospital. Survival depends on immediately receiving CPR from someone nearby. How do you perform Hands-Only CPR? There are two easy steps: Call 9-1-1 if you see a teen or adult collapse Push hard and fast in the center of the chest at a beat of 100 beats per minute. Save a life! 4 WAYS TO GET AHEAD OF SEPSIS SEPSIS is a MEDICAL EMERGENCY. Time matters! Infections put you and your family at risk for a life-threatening condition called sepsis. Sepsis is the body's extreme response to an infection. It is life-threatening, and without timely treatment, sepsis can rapidly lead to tissue damage, organ failure, and . Sepsis happens when an infection you already have-in your skin, lungs, urinary tract or somewhere else-triggers a chain reaction throughout your body. 1 PREVENT INFECTIONS Take good care of chronic conditions. Talk to your doctor about getting the recommended vaccines. 2 PRACTICE GOOD HYGIENE Wash your hands frequently. Keep cuts or open sores clean and covered until they are healed. 3 KNOW THE SYMPTOMS Confusion or disorientation Shortness of breath High heart rate Fever, shivering, or feeling very cold Extreme pain or discomfort Clammy or sweaty skin 4 ACT FAST Get medical care IMMEDIATELY if you suspect sepsis or if you have an infection that is not getting better or is getting worse. To learn more about sepsis and how to prevent infections, visit www.cdc.gov/sepsis. Test Results Laboratory or Other Results This Visit (last charted value for your 06/21/2020 visit) Microbiology 06/18/2020 8:35 AM Novel Coronavirus 2019: Negative Patient Name:SANDIE FRANK I have received this information and was given the opportunity to ask questions. Patient/Insecticide Sprayer Name: Patient/Insecticide Sprayer Signature: Relationship to Patient: Clinician/Hospital Insecticide Sprayer Signature: Date: Electronically signed by Ivelisse Camargo Conversion Aircraft Mechanic Electrical And Radio Fela at 11/19/2022 8:31 PM CDT documented in this encounter Plan of Treatment Not on file documented as of this encounter Visit Diagnoses Not on filedocumented in this encounter
--- OUTSIDE RECORDS SUMMARY | 2025-01-23 08:38 | XMS_ITS | Encounter Summary ---
Author Organization [employer] Address [address] [place] [address] Care Team Providers Care Pet Nutrition Specialist Name Role Phone Unavailable Primary Care Provider Unavailabl e Encounter Details Date Type Department Care Team (Late st Contact Info) Description 08/02/2019 Transcribed Document [facility] [place] [address] [place] [address] ProviderSonia MD [address] [place], [place] [id number] Social History Tobacco Use Types Packs/Day Years Used Date Smoking Tobacco: Never Assessed Comments Unknown Sex and Gender Information Value Date Recorded Sex Assigned at Not on file Legal Sex Female 1:42 PM CDT Gender Identity Not on file Sexual Orientation Not on file documented as of this encounter Miscellaneous Notes * Cerner Conversion Note - Historical ProviderMD - 08/02/2019 12:55 PM 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 Nursing Discharge Summary Entered On: 08/02/2019 12:56 EST Performed On: 08/02/2019 12:55 EST by Aimee Willis door paneler Documentation Patient Disposition, General : Discharge Discharge To : Other: [facility] Mode Of Departure, General Discharge : Private vehicle, Wheelchair Accompanied By, Discharge : Spouse IV Discontinued : Yes Personal Belongings With Patient : Yes Prescriptions Given to Patient : Yes Discharge Instructions Reviewed With, Opportunity For Questions Given : Patient, Spouse Patient Education Completed : Yes Teaching Method : Explanation Teaching Evaluation : Verbalizes understanding Aimee Willis RN - 08/02/2019 12:55 EST Electronically signed by Raman [facility] Conversion Sample Patternmaker Cerner at 11/19/2022 8:39 PM CDT documented in this encounter Plan of Treatment Not on file documented as of this encounter Visit Diagnoses Not on filedocumented in this encounter
--- OUTSIDE RECORDS SUMMARY | 2025-01-23 08:38 | XMS_ITS | Encounter Summary ---
Author Organization [employer] Address [address] [place] [address] Care Team Providers Care Zoo Veterinarian Name Role Phone Unavailable Primary Care Provider Unavailabl e Encounter Details Date Type Department Care Team (Late st Contact Info) Description 07/23/2019 Transcribed Document [facility] [place] [facility] [place] [address] ProviderSonia MD [address] [place] [phone] Social History Tobacco Use Types Packs/Day Years Used Date Smoking Tobacco: Never Assessed Comments Unknown Sex and Gender Information Value Date Recorded Sex Assigned at Not on file Legal Sex Female 1:42 PM CDT Gender Identity Not on file Sexual Orientation Not on file documented as of this encounter Miscellaneous Notes * Cerner Conversion Note - Historical ProviderMD - 07/23/2019 10:00 PM SCALDER Pain Assessment Entered On: 07/24/2019 2:20 EST Performed On: 07/23/2019 21:33 EST by Mayra Gibson RN Intervention Information: acetaminophen Performed by Mayra Gibson, RN on 07/23/2019 20:33:00 EST acetaminophen,1000mg Oral Pain Assessment Pain Assessment : Follow-up assessment Pain Scale Goal : 5 Pain Scale Used : 0-10 Scale Mayra Gibson RN - 07/24/2019 2:20 EST Pain Scale Intensity : 2 Mayra Gibson RN - 07/24/2019 2:20 EST Image 4 - Images currently included in the form version of this document have not been included in the text rendition version of the form. Electronically signed by Ivelisse Camargo Conversion Scene And Lighting Design Lecturer Cerner at 11/19/2022 8:35 PM CDT documented in this encounter Plan of Treatment Not on file documented as of this encounter Visit Diagnoses Not on filedocumented in this encounter
--- OUTSIDE RECORDS SUMMARY | 2025-01-23 08:38 | XMS_ITS | Encounter Summary ---
Author Organization [employer] Address [address] [place] [address] Care Team Providers Care Culinary Arts Instructor Name Role Phone Unavailable Primary Care Provider Unavailabl e Encounter Details Date Type Department Care Team (Late st Contact Info) Description 08/02/2019 Transcribed Document [facility] [place] [facility] [place] [address] ProviderSonia MD [address] [place] [phone] Social History Tobacco Use Types Packs/Day Years Used Date Smoking Tobacco: Never Assessed Comments Unknown Sex and Gender Information Value Date Recorded Sex Assigned at Not on file Legal Sex Female 1:42 PM CDT Gender Identity Not on file Sexual Orientation Not on file documented as of this encounter Miscellaneous Notes * Cerner Conversion Note - Historical ProviderMD - 08/02/2019 11:40 AM CORPORATE VP ADVERTISING & ONLINE Patient: SANDIE FRANK Age: 63 Years Sex: Female : 1955 Admit Date 07/22/2019 04:50 Discharge Date No Discharge Date on Record Primary Care Provider LEOPOLDO TEJADA (REF)[facility] Discharge Diagnosis S/p Right Total Hip Arthroplasty by Dr. Villar Acute hypoxic respiratory failure, improving CATHLEEN/Hypernatremia: Asthma, stable Seizure Disorder, stable Hypothyroidism, stable Dementia Hyperlipidemia Chronic Pain Seasonal Allergies GERD Depression Hypertension Adrenal Insufficiency Resting tremor Procedures SN - Proc - Procedure: Hip Total Anterior Approach (07/22/19 09:30:50) Hospital Course 63 years old female, who was admitted [...] prerenal cause which has slowly been improving. She still had mild hyponatremia which resolved and minimally elevated creatinine of 1.15 she is getting IVF bolus this will need to be checked. Vital Signs T: 36.4 ??C TMIN: 36.3 ??C TMAX: 36.6 ??C HR: 62(Monitored) RR: 16 BP: 149/68 SpO2: 98% Oxygen Settings (Last) Oxygen Therapy Mode: Room air (08/02/19 08:37:00) Oxygen Flow Rate: 2 Liter/Min (07/23/19 03:56:00) Physical Exam General: Alert and oriented, no acute distress. Respiratory: Respirations are non-labored, Breath sounds are equal, Symmetrical chest wall expansion, No chest wall tenderness. Cardiovascular: Normal rate, Regular rhythm, No murmur. Gastrointestinal: Soft, Non-distended, Normal bowel sounds, No organomegaly, Musculoskeletal: Normal strength, no deformity, active arthritis or joint swelling. Neurologic: Alert, No focal deficits, CN grossly intact. Discharge Disposition Rehabilitation unit/facility Discharge Follow Up PEE VILLAR MD-ORT - 11:15 AM Discharge Medications (37) Active albuterol 2.5 mg/3 mL (0.083%) inhalation solution 2.5 mg = 3 mL, PRN, Inhalation, Q4H alendronate 70 mg, Oral, Weekly Alrex 0.2% ophthalmic suspension 1 Drop, Eyes Both, BID aspirin 81 mg oral delayed release tablet 81 mg = 1 Tab, Oral, BID azelastine 205.5 mcg/inh (0.15%) nasal spray 2 [place], PRN, Nasal, BID biotin 5 mg, Oral, [...] 50,000 Int Units = 1 Cap, Oral, F5Vcypz donepezil 23 mg, Oral, Daily famotidine 40 mg, Oral, BID Flax Seed Oil 1,200 mg, Oral, BID Flonase 1 Homestead, Nostrils Both, BID gabapentin 100 mg oral capsule 100 mg = 1 Cap, Oral, QPM hydrocortisone 10 mg oral tablet 5 mg = 0.5 Tab, Oral, BID lamotrigine 100 mg oral tablet 100 mg = [...] Daily Multi Vitamin+ 1 Tab, Oral, Daily oxyCODONE 5 mg oral tablet 10 mg = 2 Tab, PRN, Oral, Q4H Perforomist 20 mcg/2 mL inhalation solution 20 [...] Vitamin D3 2,000 Int Units, Oral, Daily Code Status Start: 07/22/19 11:20:00 EST, Full Code, Continuous Order Condition on Discharge fair Consulting Physicians PARIS ESCOBAR MD-ANS FLEMING, SCOTT, DO-ANS QUISENBERRY, THOMAS E, MD-INT Current Diet Order Diet, Adult - Ordered -- Start: 07/22/19 11:20:00 EST, Regular Diet, Food Consistency: Regular texture, Isolation: Contact precautions Patient Discharge Summary Orders Discharge Activity: Discharge Activity: Activity as tolerated Diet: Discharge Diet: Heart healthy diet Pending Labs Ordered CBC no Diff (Hemogram) Specimen Type: Blood, AM Draw collect, 07/30/19 4:00:00 EST, Daily, Lab Collect BMP Basic Metabolic Panel Specimen Type: Blood, AM Draw collect, 07/23/19 4:00:00 EST, Daily, For: 99 Day(s), Stop: 10/29/19 4:00:00 EDT, Lab Collect Time Spent on Discharge 32 mins Electronically signed by Ivelisse Camargo Conversion Commodity Management Specialist Cerner at 11/19/2022 8:43 PM CDT documented in this encounter Plan of Treatment Not on file documented as of this encounter Visit Diagnoses Not on filedocumented in this encounter
--- OUTSIDE RECORDS SUMMARY | 2025-01-23 08:38 | XMS_ITS | Encounter Summary ---
Author Organization [employer] Address [address] [place] [address] Care Team Providers Care Scaffolding Helper Name Role Phone Unavailable Primary Care Provider Unavailabl e Encounter Details Date Type Department Care Team (Late st Contact Info) Description 06/21/2020 Transcribed Document [facility] [place] [address] ProviderSonia MD [address] [place], [place] [phone] Social History Tobacco Use Types Packs/Day Years Used Date Smoking Tobacco: Never Assessed Comments Unknown Sex and Gender Information Value Date Recorded Sex Assigned at Not on file Legal Sex Female 1:42 PM CDT Gender Identity Not on file Sexual Orientation Not on file documented as of this encounter Miscellaneous Notes * Cerner Conversion Note - Historical ProviderMD - 06/21/2020 8:45 AM SHOE SALESPERSON SWAPNIL Shin PACU Summary Primary Physician: ANIVAL BROWN MD-GAE Finalized Date/Time: 06/21/20 09:43:13 Pt. Name: SANDIE FRANK D.O.B./Sex: 1955 Female Med Rec #: [id number] Physician: ANIVAL BROWN MD-GAE Financial #: [id number] Pt. Type: E Room/Bed: [facility] [place]/ Admit/Disch: 06/21/20 06:39:00 - [facility] PAC[facility] Times Entry 1 In PACU I 06/21/20 08:55:00 Ready for PACU 06/21/20 09:39:00 Discharge Discharge from PACU 06/21/20 09:40:00 I SWAPNIL Shin PACU Case Times Audit 06/21/20 09:43:13 Assisted Living Coordinator: [id number] Modifier: [id number] <+> 1 Ready for PACU Discharge <+> 1 Discharge from PACU I Finalized By: Rosenda Hunter, RN Document Signatures Signed By: Rosenda Hunter RN 06/21/20 09:43 Electronically signed by Raman [facility] Conversion Cdl Program Coordinator Cerner at 11/19/2022 8:24 PM CDT documented in this encounter Plan of Treatment Not on file documented as of this encounter Visit Diagnoses Not on filedocumented in this encounter
--- OUTSIDE RECORDS SUMMARY | 2025-01-23 08:39 | XMS_ITS | Encounter Summary ---
Author Organization [employer] Address [address] [place] [address] Care Team Providers Care Automated Manufacturing Instructor Name Role Phone Unavailable Primary Care Provider Unavailabl e Encounter Details Date Type Department Care Team (Late st Contact Info) Description 07/28/2019 Transcribed Document [facility] [place] [facility] [place] [address] ProviderSonia MD [address] [place] [phone] Social History Tobacco Use Types Packs/Day Years Used Date Smoking Tobacco: Never Assessed Comments Unknown Sex and Gender Information Value Date Recorded Sex Assigned at Not on file Legal Sex Female 1:42 PM CDT Gender Identity Not on file Sexual Orientation Not on file documented as of this encounter Miscellaneous Notes * Cerner Conversion Note - Historical ProviderMD - 07/28/2019 10:00 PM SALESPERSON FLOWERS Pain Assessment Entered On: 07/29/2019 3:30 EST Performed On: 07/28/2019 22:35 EST by Myrna Deleon RN Intervention Information: acetaminophen Performed by Myrna Deleon RN on 07/28/2019 21:35:00 EST acetaminophen,1000mg Oral Pain Assessment Pain Assessment : Follow-up assessment Pain Scale Goal : 5 Pain Scale Used : 0-10 Scale Myrna Deleon RN - 07/29/2019 3:30 EST Pain Scale Intensity : 3 Myrna Deleon RN - 07/29/2019 3:30 EST Image 4 - Images currently included in the form version of this document have not been included in the text rendition version of the form. Electronically signed by Ivelisse Camargo Conversion Lance Crewmember/Mlrs Sergeant Cerdwain at 11/19/2022 8:40 PM CDT documented in this encounter Plan of Treatment Not on file documented as of this encounter Visit Diagnoses Not on filedocumented in this encounter
--- OUTSIDE RECORDS SUMMARY | 2025-01-23 08:39 | XMS_ITS | Encounter Summary ---
Author Organization Healthcare Address [address] [place] [address] Care Team Providers Care Lobbyist Name Role Phone Marc Rodriguez MD Primary Care Provider [phone] Edgardo Zuñiga MD Unavailable [phone] Giulia Briggs Unavailable [phone] Edgardo Zuñiga MD Unavailable [phone] Esther Mathew Unavailable [phone] Reason for Visit * Reason Comments Med Refill Encounter Details Date Type Department Care Team (Late st Contact Info) Description 01/02/2025 [facility] [place] [facility] [address] [place] [address] Esther Mathew PA [address] [place] [address] Social History Tobacco Use Types Packs/Day Years [...] place to sleep or slept in a mcfp (including now)? No 05/13/2024 PHQ-9 Answer Date Recorded Patient Health Questionnaire-9 Score 0 07/05/2024 Utilities Answer Date Recorded In the past 12 months has th e [employer], gas, oil, or water [employer] threatened to shut off services in your home? No 05/13/2024 Comments No Sex and Gender Information Value Date Recorded Sex Assigned at Female 07/31/2021 6:10 AM EST Legal Sex Female 8:40 PM EDT Gender Identity Female 07/31/2021 6:10 AM EST Sexual Orientation Not on file documented as of this encounter Miscellaneous Notes * Telephone Encounter - Luisana Lima PharmD - 01/03/2025 7:44 AM EDT 1 medication(s) has been approved per protocol. documented in this encounter Plan of Treatment Upcoming Encounters Date Type Department Care Team (Late st Contact Info) Description 02/21/2025 11:00 AM EDT Office Visit [facility] [address] [place] [address] Dorys Sommers, DO [address] [place] [address] 03/08/2025 1:40 PM EDT Office Visit [facility] Orthopaedic Surgery & Sports Medicine [address], [address] [place] [address] Edgardo Zuñiga MD [address] [place] [address] 03/09/2025 1:20 PM EDT Office Visit [facility] at [facility] [address] [place] [address] Suzan Galindo, DO [address] [place] [address] documented as of this encounter Visit Diagnoses Not on filedocumented in this encounter Additional Health Concerns Assessment Noted Time PHQ-9 Depression Total Score: 0 07/05/20 24 10:01 AM EST A fall risk assessment has been complete d for the patient 12/07/2024 12:51 PM EDT A Body Mass Index follow-up plan has been documented for the patient 12/07/2024 1:23 PM EDT documented as of this encounter Care Teams Lobbyist Relationship Specialty Start Date End Date Marc Rodriguez MD [address] [place] [address] PCP - General 12/14/20 Edgardo Zuñiga MD [address] [place] [address] Surgeon Neurosurgery 03/04/21 Giulia Briggs PA [address] [place] [address] Physician Scientific Associate Neurosurgery 07/03/21 Edgardo Zuñiga MD [address] [place] [address] Surgeon Neurosurgery 09/16/21 Esther Mathew PA [address] [place] [address] Physician Scientific Associate Neurology 11/19/22 documented as of this encounter
--- OUTSIDE RECORDS SUMMARY | 2025-01-23 08:39 | XMS_ITS | Encounter Summary ---
Author Organization Healthcare Address [address] [place] [address] Care Team Providers Care Senior It Architect Name Role Phone Marc Rodriguez MD Primary Care Provider [phone] Edgardo Zuñiga MD Unavailable [phone] Giulia Briggs Unavailable [phone] Edgardo Zuñiga MD Unavailable [phone] Esther Mathew Unavailable [phone] Reason for Visit * Reason Comments Med Refill Encounter Details Date Type Department Care Team (Late st Contact Info) Description 12/06/2024 [facility]ill [place] [facility] [address], [address] [place] [address] Esther Mathew PA [address] [place] [address] Social History Tobacco Use Types [...] place to sleep or slept in a chcf (including now)? No 05/13/2024 PHQ-9 Answer Date Recorded Patient Health Questionnaire-9 Score 0 07/05/2024 Utilities Answer Date Recorded In the past 12 months has th e [employer], gas, oil, or water [employer] threatened to shut off services in your home? No 05/13/2024 Comments No Sex and Gender Information Value Date Recorded Sex Assigned at Female 07/31/2021 6:10 AM EST Legal Sex Female 8:40 PM EDT Gender Identity Female 07/31/2021 6:10 AM EST Sexual Orientation Not on file documented as of this encounter Functional Status * Over the [...] encounter Miscellaneous Notes * Telephone Encounter - Sandra Yoon, PharmD - 12/09/2024 9:35 AM EDT 1 medication(s) has been approved per protocol. Patient needs to keep upcoming appt for additional refills. Thank you documented in this encounter Plan of Treatment Upcoming Encounters Date Type Department Care Team (Late st Contact Info) Description 02/21/2025 11:00 AM EDT [facility] [address], [address] [place] [address] Dorys Sommers, DO [address] [place] [address] 03/08/2025 1:40 PM EDT [facility] [address], [address] [place] [address] Edgardo Zuñiga MD [address] [place] [address] 03/09/2025 1:20 PM EDT Office Visit [facility] [address] [place] [address] Suzan Galindo DO [address] [place] [address] documented as of this encounter Visit Diagnoses Not on filedocumented in this encounter Additional Health Concerns Assessment Noted Time PHQ-9 Depression Total Score: 0 07/05/20 24 10:01 AM EST A fall risk assessment has been complete d for the patient 2024 2:20 PM EDT A Body Mass Index follow-up plan has been documented for the patient 11/01/2024 1:14 PM EDT documented as of this encounter Care Teams Senior It Architect Relationship Specialty Start Date End Date Marc Rodriguez MD [address] [facility] [address] [place] [address] PCP - General 12/14/20 Edgardo Zuñiga MD [address] [place] [address] Surgeon Neurosurgery 03/04/21 Giulia Briggs PA [address] [place] [address] Physician Assistant Foreman Neurosurgery 07/03/21 Edgardo Zuñiga MD [address] [place] [address] Surgeon Neurosurgery 09/16/21 Esther Mathew PA [address] [place] [address] Physician Assistant Foreman Neurology 11/19/22 documented as of this encounter
--- OUTSIDE RECORDS SUMMARY | 2025-01-23 08:39 | XMS_ITS | Encounter Summary ---
Author Organization [employer] Address [address] [place] [address] Care Team Providers Care Sheep Sticker Name Role Phone Unavailable Primary Care Provider Unavailabl e Encounter Details Date Type Department Care Team (Late st Contact Info) Description 07/27/2019 Transcribed Document [facility] [place] Family Medicine [facility] [place] [address] ProviderSonia MD [address] [place] [id number] Social History Tobacco Use Types Packs/Day Years Used Date Smoking Tobacco: Never Assessed Comments Unknown Sex and Gender Information Value Date Recorded Sex Assigned at Not on file Legal Sex Female 1:42 PM CDT Gender Identity Not on file Sexual Orientation Not on file documented as of this encounter Miscellaneous Notes * Cerner Conversion Note - Historical ProviderMD - 07/27/2019 10:00 PM CELL MANAGER Pain Assessment Entered On: 07/28/2019 2:26 EST Performed On: 07/27/2019 22:37 EST by Myrna Deleon RN Intervention Information: acetaminophen Performed by Myrna Deleon RN on 07/27/2019 21:37:00 EST acetaminophen,1000mg Oral Pain Assessment Pain Assessment : Follow-up assessment Pain Scale Goal : 5 Pain Scale Used : 0-10 Scale Myrna Deleon RN - 07/28/2019 2:26 EST Pain Scale Intensity : 3 Myrna Deleon RN - 07/28/2019 2:26 EST Image 4 - Images currently included in the form version of this document have not been included in the text rendition version of the form. documented in this encounter Plan of Treatment Not on file documented as of this encounter Visit Diagnoses Not on filedocumented in this encounter
--- OUTSIDE RECORDS SUMMARY | 2025-01-23 08:39 | XMS_ITS | Encounter Summary ---
Author Organization [employer] Address [address] [place] [address] Care Team Providers Care Returned Goods Inspector Name Role Phone Unavailable Primary Care Provider Unavailabl e Encounter Details Date Type Department Care Team (Late st Contact Info) Description 07/29/2019 Transcribed Document [facility] [place] Family Medicine [facility] [place] [address] ProviderSonia MD [address] [place], [place] [address] Social History Tobacco Use Types Packs/Day Years Used Date Smoking Tobacco: Never Assessed Comments Unknown Sex and Gender Information Value Date Recorded Sex Assigned at Not on file Legal Sex Female 1:42 PM CDT Gender Identity Not on file Sexual Orientation Not on file documented as of this encounter Miscellaneous Notes * Cerner Conversion Note - Historical ProviderMD - 07/29/2019 5:00 AM TERMITE RENEWAL INSPECTOR Chart Check - Review Order Profile Entered On: 07/29/2019 5:10 EST Performed On: 07/29/2019 5:00 EST by Myrna Deleon, RN Chart Check Powerplans Initiated/Discontinued as Appropriate : Yes All Active Orders Reviewed : Yes Myrna Deleon, RN - 07/29/2019 5:10 EST Electronically signed by Raman [facility] Conversion Chair Trimmer Cerner at 11/19/2022 8:24 PM CDT documented in this encounter Plan of Treatment Not on file documented as of this encounter Visit Diagnoses Not on filedocumented in this encounter
--- OUTSIDE RECORDS SUMMARY | 2025-01-23 08:39 | XMS_ITS | Encounter Summary ---
Author Organization Healthcare Address [address] [place] [address] Care Team Providers Care Porcelain Mixer Name Role Phone Marc Rodriguez MD Primary Care Provider [phone] Edgardo Zuñiga MD Unavailable [phone] Giulia Briggs Unavailable [phone] Edgardo Zuñiga MD Unavailable [phone] Esther Mathew Unavailable [phone] Reason for Visit * Reason Onset Date Comments HCN Clinical Concern/Question 11/08/2024 Encounter Details Date Type Department Care Team (Late st Contact Info) Description 11/08/2024 Telephone Physical Medicine & Rehabilitation Clinic at [facility] [address] [place] [address] Suzan Galindo DO [address] [facility] [address] [place] [address] HCN Clinical Concern/Question Social History Tobacco Use Types Packs/Day Years [...] place to sleep or slept in a mcc (including now)? No 05/13/2024 PHQ-9 Answer Date [...] No Risk Indicated 12/07/2024 12:51 PM EDT Nubia Nixon carlton Ledezma * If you checked off any problems [...] encounter Miscellaneous Notes * Telephone Encounter - Preeti Delacruz - 11/08/2024 2:17 PM EDT Got it thank you * Telephone Encounter - Preeti Delacruz - 11/08/2024 2:00 PM EDT Order not in. Let me know when in I will fax it. * Telephone Encounter - Preeti Delacruz - 11/08/2024 1:59 PM EDT Called pt back and let her know. Faxed order to [facility]. Thanks * Telephone Encounter - Preeti Delacruz Brisa - 11/08/2024 1:11 PM EDT I called pt back she stated that she is been having severe spasticity since and it's very difficult for her to get up in the morning. Pt said she Is on baclofen 10mg 4x a day, Buspar 5mg 3x a day and Dantrium 100 mg 4x a day. * Telephone Encounter - Dolly [place] - 11/08/2024 12:27 PM EDT Clinical Concern/Question Reason for Call: patient is requesting a call back regarding her leg pain Best contact number: [phone] (mobile) Optimal time of day to reach caller: ANYTIME Additional comments/information from caller: None Note: Please do not reply to this message. Follow-up communication and further actions as a result of this message need to be communicated with the patient directly, if the patient is not active onMyChart. If the patient is active on MyChart, they will receive notification of the communication/outcome via 0xdata. documented in this encounter Plan of Treatment Upcoming Encounters Date Type Department Care Team (Late st Contact Info) Description 02/21/2025 11:00 AM EDT Office Visit [facility] [address], 1st [place] [address] Dorys Sommers DO [address] [place] [address] 03/08/2025 1:40 PM EDT Office Visit [facility] Orthopaedic Surgery & Sports Medicine [address], [address] [place] [address] Edgardo Zuñiga MD [address] [place] [address] 03/09/2025 1:20 PM EDT Office Visit [facility] [address] [place] [address] Suzan Galindo DO [address] [place] [address] documented as of this encounter [...] documented as of this encounter Care Teams Porcelain Mixer Relationship Specialty Start Date End Date Marc Rodriguez MD [address] [place], [place] [id number] PCP - General 12/14/20 Edgardo Zuñiga MD [address] [place] [address] Surgeon Neurosurgery 03/04/21 Giulia Briggs PA [address] [place] [address] Physician Weld Fitter Neurosurgery 07/03/21 Edgardo Zuñiga MD [address] [place] [address] Surgeon Neurosurgery 09/16/21 Esther Mathew PA [address] [place] [address] Physician Weld Fitter Neurology 11/19/22 documented as of this encounter
--- OUTSIDE RECORDS SUMMARY | 2025-01-23 08:39 | XMS_ITS | Encounter Summary ---
Author Organization Healthcare Address [address] [place] [address] Care Team Providers Care Commercial Art Instructor Name Role Phone Marc Rodriguez MD Primary Care Provider [phone] Edgardo Zuñiga MD Unavailable [phone] Giulia Briggs Unavailable [phone] Edgardo Zuñiga MD Unavailable [phone] Esther Mathew Unavailable [phone] Reason for Visit * Reason Comments Med Refill Encounter Details Date Type Department Care Team (Late st Contact Info) Description 11/29/2024 Refill [place] [facility] [address], [address]st [place] [address] Esther Mathew PA [address] [place] [address] Social History Tobacco Use Types [...] Date Recorded Patient Health Questionnaire-2 Score 0 09/21/2024 Hunger Vital Sign Answer Date Recorded Within [...] place to sleep or slept in a longterm (including now)? No 05/13/2024 PHQ-9 Answer Date Recorded Patient Health Questionnaire-9 Score 0 07/05/2024 Utilities Answer Date Recorded In the past 12 months has th e [employer], gas, oil, or water [employer] threatened to shut off services in your home? No 05/13/2024 Comments No Sex and Gender Information Value Date Recorded Sex Assigned at Female 07/31/2021 6:10 AM EST Legal Sex Female 8:40 PM EDT Gender Identity Female 07/31/2021 6:10 AM EST Sexual Orientation Not on file documented as of this encounter Miscellaneous Notes * Telephone Encounter - Sandra Yoon, PharmD - 12/02/2024 9:23 AM EDT Sending refill request to clinic for review. Please approve/deny as appropriate. Thanks! documented in this encounter Plan of Treatment Upcoming Encounters Date Type Department Care Team (Late st Contact Info) Description 02/21/2025 11:00 AM EDT Office Visit [facility] [address], 1st [place] [address] Dorys Sommers, DO [address] [place] [address] 03/08/2025 1:40 PM EDT Office Visit [facility] Orthopaedic Surgery & Sports Medicine [address], [address] [place] [address] Edgardo Zuñiga MD [address] [place] [address] 03/09/2025 1:20 PM EDT Office Visit Physical Medicine & Rehabilitation Clinic at [facility] [address] [place] [address] Suzan Galindo, DO [address] [place] [address] documented as of this encounter [...] documented as of this encounter Care Teams Commercial Art Instructor Relationship Specialty Start Date End Date Marc Rodriguez MD [address] [place] [address] PCP - General 12/14/20 Edgardo Zuñiga MD [address] [place] [address] Surgeon Neurosurgery 03/04/21 Giulia Briggs PA [address] [place] [address] Physician Wardrobe Attendant Neurosurgery 07/03/21 Edgardo Zuñiga MD [address] [place] [address] Surgeon Neurosurgery 09/16/21 Esther Mathew PA [address] [place] [address] Physician Wardrobe Attendant Neurology 11/19/22 documented as of this encounter
--- OUTSIDE RECORDS SUMMARY | 2025-01-23 08:39 | XMS_ITS | Encounter Summary ---
Author Organization [facility] Address [address] [place] [address] Care Team Providers Care Customer Experience Specialist Name Role Phone Marc Rodriguez MD Primary Care Provider [phone] Edgardo Zuñiga MD Unavailable [phone] Giulia Briggs Unavailable [phone] Edgardo Zuñiga MD Unavailable [phone] Esther Mathew Unavailable [phone] Encounter Details Date Type Department Care Team (Latest Contact Info) Description 12/07/2024 Travel Social History Tobacco Use Types Packs/Day Years [...] Indicated 12/07/2024 12:51 PM EDT Nubia Nixon Ledezma * If you checked off any [...] Preeti Delacruz documented as of this encounter Plan of Treatment Upcoming Encounters Date Type Department Care Team (Late st Contact Info) Description 02/21/2025 11:00 AM EDT Office Visit [facility] [address], [address]st [place] [address] Dorys Sommers, DO [address] [place] [address] 03/08/2025 1:40 PM EDT Office Visit [facility] Orthopaedic Surgery & Sports Medicine [address], [address] [place] [address] Edgardo Zuñiga MD [address] [place] [address] 03/09/2025 1:20 PM EDT Office Visit [facility] Medicine [facility] Rehabilitation Clinic at [facility] [address] [place] [address] Suzan Galindo, [address] [place] [address] documented as of this [...] documented as of this encounter Care Teams Customer Experience Specialist Relationship Specialty Start Date End Date Marc Rodriguez MD [address] [place] [address] PCP - General 12/14/20 Edgardo Zuñiga MD [address] [place] [address] Surgeon Neurosurgery 03/04/21 Giulia Briggs PA [address] [place] [address] Physician Soa Engineer Neurosurgery 07/03/21 Edgardo Zuñiga MD [address] [place] [address] Surgeon Neurosurgery 09/16/21 Esther Mathew PA [address] [place] [address] Physician Soa Engineer Neurology 11/19/22 documented as of this encounter
--- OUTSIDE RECORDS SUMMARY | 2025-01-23 08:39 | XMS_ITS | Encounter Summary ---
Author Organization [employer] Address [address] [place] [address] Care Team Providers Care Candy Attendant Name Role Phone Unavailable Primary Care Provider Unavailabl e Encounter Details Date Type Department Care Team (Late st Contact Info) Description 07/28/2019 Transcribed Document [facility] [place] [facility] [place] [address] ProviderSonia MD [address] [place] [id number] Social History Tobacco Use Types Packs/Day Years Used Date Smoking Tobacco: Never Assessed Comments Unknown Sex and Gender Information Value Date Recorded Sex Assigned at Not on file Legal Sex Female 1:42 PM CDT Gender Identity Not on file Sexual Orientation Not on file documented as of this encounter Miscellaneous Notes * Cerner Conversion Note - Historical ProviderMD - 07/28/2019 6:00 AM NOVELTY TWISTER TENDER Pain Assessment Entered On: 07/28/2019 13:40 EST Performed On: 07/28/2019 10:48 EST by Esther Cunningham RN Intervention Information: acetaminophen Performed by Esther Cunningham RN on 07/28/2019 09:48:00 EST acetaminophen,1000mg Oral Pain Assessment Pain Assessment : Follow-up assessment Pain Scale Goal : 5 Pain Scale Used : 0-10 Scale Esther Cunningham RN - 07/28/2019 13:40 EST Pain Scale Intensity : 2 Esther Cunningham RN - 07/28/2019 13:40 EST Image 4 - Images currently included in the form version of this document have not been included in the text rendition version of the form. documented in this encounter Plan of Treatment Not on file documented as of this encounter Visit Diagnoses Not on filedocumented in this encounter
--- OUTSIDE RECORDS SUMMARY | 2025-01-23 08:39 | XMS_ITS | Encounter Summary ---
Author Organization [employer] Address [address] [place] [address] Care Team Providers Care Bobbin Inspector Name Role Phone Unavailable Primary Care Provider Unavailabl e Encounter Details Date Type Department Care Team (Late st Contact Info) Description 07/28/2019 Transcribed Document [facility] [place] [facility] [place] [address] ProviderSonia MD [address] [place], [place] [id number] Social History Tobacco Use Types Packs/Day Years Used Date Smoking Tobacco: Never Assessed Comments Unknown Sex and Gender Information Value Date Recorded Sex Assigned at Not on file Legal Sex Female 1:42 PM CDT Gender Identity Not on file Sexual Orientation Not on file documented as of this encounter Miscellaneous Notes * Cerner Conversion Note - Historical ProviderMD - 07/28/2019 5:00 PM COMPONENT ENGINEER Chart Check - Review Order Profile Entered On: 07/28/2019 19:59 EST Performed On: 07/28/2019 17:00 EST by Esther Cunningham RN Chart Check Powerplans Initiated/Discontinued as Appropriate : Yes All Active Orders Reviewed : Yes Esther Cunningham, NICOLASA - 07/28/2019 19:59 EST Electronically signed by Raman [facility] Conversion Technical Services Assistant Cerner at 11/19/2022 8:48 PM CDT documented in this encounter Plan of Treatment Not on file documented as of this encounter Visit Diagnoses Not on filedocumented in this encounter
--- OUTSIDE RECORDS SUMMARY | 2025-01-23 08:39 | XMS_ITS | Encounter Summary ---
Author Organization [employer] Address [address] [place] [address] Care Team Providers Care Lamination Builder Name Role Phone Unavailable Primary Care Provider Unavailabl e Encounter Details Date Type Department Care Team (Late st Contact Info) Description 07/29/2019 Transcribed Document [facility] [place] Family Medicine Formerly [facility] [place] [address] ProviderSonia MD [address] [place] [id number] Social History Tobacco Use Types Packs/Day Years Used Date Smoking Tobacco: Never Assessed Comments Unknown Sex and Gender Information Value Date Recorded Sex Assigned at Not on file Legal Sex Female 1:42 PM CDT Gender Identity Not on file Sexual Orientation Not on file documented as of this encounter Miscellaneous Notes * Cerner Conversion Note - Historical ProviderMD - 07/29/2019 5:00 PM WARP BLEACHING VAT TENDER Chart Check - Review Order Profile Entered On: 07/29/2019 16:15 EST Performed On: 07/29/2019 17:00 EST by Trina Adorno RN Chart Check Powerplans Initiated/Discontinued as Appropriate : Yes All Active Orders Reviewed : Yes Trina Adorno, NICOLASA - 07/29/2019 16:15 EST Electronically signed by Raman [facility] Conversion Chief Innovation Officer Cerner at 11/19/2022 8:20 PM CDT documented in this encounter Plan of Treatment Not on file documented as of this encounter Visit Diagnoses Not on filedocumented in this encounter
--- OUTSIDE RECORDS SUMMARY | 2025-01-23 08:39 | XMS_ITS | Continuity of Care Document ---
Author Organization [facility] Office New Address [address] [place] [address] Care Team Providers Care Shank Threader Name Role Phone LEOPOLDO TEJADA Primary Care Provider [phone] LEOPOLDO TEJADA Referring Provider Assessment Encounter Date Assessment Date Assessment LastModified by Organization Details LastModified Time 01/19/2025 01/19/2025 This patient is doing much better after adding baclofen and an increase concentration to her intrathecal infusion. This was done by the [facility] home health refill nurse. She continues on gabapentin 100 mg 3 times a day. She does have refills on this medication. She is having some issues with constipation. She was tried on Trulicity which is helping however we did decrease her pump 8% today. She is scheduled for refill at the end of the month. We will communicate to our [facility] home health refill nurse to decrease her [...] 2024 025 abux Not available 01/19/2025 18:26:12 Surgeries None recorded. Imaging None recorded. Medication Orders None recorded. Patient TargetsNo targets recorded. Patient InstructionsNo instructions recorded. Reason for Referral None Reported. Problems Name Problem SNOMED Code Status Onset Date Resolution Date Notes Provider Name and Address Organization Details Recorded Time History of lumbar fusion 2048888468657 6 Active 2023 Sagar Kidd MD [address] [place] [address], [address], [place] [facility] 4 09:30:12 Lumbar post-christopher ctomy syndrome 112933272 Active 2022 Sagar Kidd MD [address] [place] [address], [address], [place] [facility] 3 12:42:22 Lumbar radiculopat hy 384096181 Active 2022 Sagar Kidd MD [address] [place] [address], [address], [place] [facility] 3 12:42:23 Degeneratio n of lumbar interverteb ral disc 73187387 Active 2022 Sagar Kidd MD [address] [place] [address], [address], [place] [facility] 3 12:42:24 Problem Notes None recorded. Procedures Surgical History Date Name Laterality Status Provider Name and Address Organization Details Recorded Time 01/20/20 25 PUMP ADJUSTMENT completed Sagar Kidd MD [address] [place] [address], [address], [place] [facility] 01/19/2025 18:24:49 12/24/19 25 PUMP ADJUSTMENT completed Sagar Kidd MD [address] [place] [address], [address], [place] [facility] 12/23/2024 12:42:44 11/24/19 25 PUMP ADJUSTMENT completed Sagar Kidd MD [address] [place] [address], [address], [place] [facility] 11/23/2024 14:01:17 06/27/20 24 Pump Refill completed Sagar Kidd MD [address] [place] [address], [address], [place] [facility] 06/27/2024 18:29:09 05/12/20 24 Pump Refill completed Sagar Kidd MD [address],[facility], [place], [address], [place] [facility] 05/12/2024 22:17:49 12/30/19 24 PUMP ADJUSTMENT completed Sagar Kidd MD [address],[facility], [place], [address], [place] [facility] 12/30/2023 09:48:52 11/12/19 24 PUMP ADJUSTMENT completed Sagar Kidd MD [address],[facility], [place], [address], [place] [facility] 11/12/2023 09:35:32 11/12/19 24 Caudal Epidural Steroid Injection Under Fluoroscopy completed Sagar Kidd MD [address],[place] [address] [place] [address], [address], [place] [facility] 11/12/2023 09:34:52 10/29/19 24 PUMP ADJUSTMENT completed Sagar Kidd MD [address],[facility] [facility], [place], [address], [place] [facility] 10/29/2023 22:42:43 10/23/19 24 PUMP ADJUSTMENT completed Sagar Kidd MD [address],[place] [address] [place] [address], [address], [place] [facility] 10/25/2023 17:41:36 10/15/19 24 Pump Refill completed Sagar Kidd MD [address],[facility] [facility], [place], [address], [place] [facility] 10/15/2023 13:13:48 10/07/19 24 PUMP ADJUSTMENT cancelled CHRISTA COREY [place] - [facility] 10/05/2023 07:33:42 09/24/19 24 PUMP ADJUSTMENT completed Sagar Kidd MD [address],[place] [address] [place] [address], [address], [place] [facility] 09/24/2023 18:59:17 09/09/19 24 PUMP ADJUSTMENT completed Sagar Kidd MD [address], [address], [place] [facility] 09/09/2023 22:00:08 09/09/19 Lumbar MILDRED: Interlaminar completed Sagar Kidd MD [address], [address], [place] [facility] 09/09/2023 21:59:32 08/27/19 24 PUMP ADJUSTMENT completed Sagar Kidd MD [address] [facility],[address], [address], [place] [facility] 08/27/2023 10:34:46 07/31/20 PUMP ADJUSTMENT completed Sagar Kidd MD [address] [facility],[address], [address], [place] [facility] 07/31/2023 14:28:40 07/31/20 Diagnostic SI Joint Injection Under Fluoroscopy completed Sagar Kidd MD [address] [facility],[address], [address], [place] [facility] 07/31/2023 14:28:03 07/16/20 Pump Refill completed Sagar Kidd MD [address], [address], [place] [facility] 07/16/2023 19:03:50 05/26/20 Pump Refill cancelled CHRISTA COREY [place] [facility] 05/19/2023 11:48:31 04/30/20 Pump Refill completed Sagar Kidd MD [address], [address], [place] [facility] 04/30/2023 09:35:06 04/23/20 23 SCS Leads Removal cancelled CHRISTA COREY [place] [facility] 04/17/2023 08:39:13 04/16/20 23 SCS Leads Removal completed Sagar Kidd MD [address] ,[address], [address], [place] [facility] 04/17/2023 00:35:18 04/10/20 23 SCS Trial completed Sagar Kidd MD [address] ,[address], [address], [place] [facility] 04/10/2023 12:39:45 [...] Not available Not available Not available 04/10/2023 49672 1 RxNorm Debby Flowers null, [place] - [facility] 3 08:40:45 3603 Keflex medicatio n Not available Not available Not available 04/10/2023 80746 7 RxNorm Debby Flowers null, [place] [facility] 3 08:40:53 3604 Levaquin medicatio n Not available Not available Not available 04/10/2023 10159 2 RxNorm Debby Flowers null, [place] - [...] Not Available Vitals Date Recorded Body height Heart rate Respiratory rate Body mass index (BMI) Body weight Oxygen saturation Oxygen saturation in Arterial blood by Pulse oximetry Systolic blood pressure Diastolic blood pressure Provider Name and Address Organization Details Last Updated DateTime 5 170.18 cm 78 /min 18 /min 30.5 kg/m2 08182.5 1 g 97 % 97 % 118 mm[Hg] 82 mm[Hg] Darlene Schroeder [place] - [facility] 5 09:23:45 Social History Question Answer Notes LastModified by Organizat ion Details LastModified Time Tobacco Smoking Status Never Smoker [facility] [place] [facility] 04/10/2023 08:42:26 Do You Have An Advance Directive? Yes [email or web address] Information n ot available 04/10/2023 In The 14 Days Before Symptom Onset, Have You Had Close Contact With A Laboratory-confirm ed COVID-19 While That Case Was Ill? No [email or web address] Information n ot available 04/10/2023 In The 14 Days Before Symptom Onset, Have You Had Close Contact With A Person Who Is Under Investigation For COVID-19 While That Person Was Ill? No [email or web address] Information not available 04/10/2023 Have You Been To An Area Known To Be High Risk For COVID-19? No [email or web address] Information not available 04/10/2023 Do You Have A Medical Power Of Setter Induction Heating Equipment? No [email or web address] Information not available 04/10/2023 Sex: Female Functional Status Question Answer Note LastModified by Organizat ion Details LastModified Time Do you use any illicit or recreational drugs? No [email or web address] Information not available 04/10/2023 Do you or have you ever used any other forms of tobacco or nicotine? No [email or web address] Information not available 04/10/2023 What is your level of alcohol consumption? Occasional [email or web address] Information not available 04/10/2023 Are you currently employed? No [email or web address] Information not available 04/10/2023 Mental Status None recorded. Family History Nothing Reported. Medical History Condition Response Coronary Artery Disease N Gout N Hernia N Head Trauma/Injury N Thyroid Problems Y Depression Y COPD N Anemia Y Heart Attack (OK) N Ulcers N Diabetes N Anxiety Disorder [...] SNOMED-CT Code Diagnosis ICD10 Code Diagnosis Note [id number] Sagar Kidd MD [address] [place] [address] 12/23/2024 08:32:54 12/23/2024 09:43:59 Lumbar post-laminectomy syndrome 735794815 M96.1 Lumbar radiculopathy 128 393465 M54.16 Degenerati on of lumbar intervertebral disc 22262735 M51.362 Spasm 83245697 M62.838 [id number] Sagar Kidd MD [address] [place] [address] 01/19/2025 09:20:57 01/19/2025 10:19:38 Lumbar radiculopathy 128216644 M54.16 Lumbar post-laminectomy syndrome 615970186 M96.1 Degenerati on of lumbar intervertebral disc 40898742 M51.362 History of lumbar fusion 1295649081 9106 Z98.1 Health Concerns Section Related Observation LastModified by Organization Detai ls LastModified Time None Recorded Concern Status LastModified by Organization Details LastModified Time None Recorded Payers Encounter Date Sequence Insurance Name Policy Number Policy Gibbs Covered Member ID Gibbs Member ID Guarantor Name 01/19/2025 1 [place] Sandie Shelton Clyde [id number] Sandie Clyde 01/19/2025 2 [facility] [id number] Jose Frank [id number] Sandie Frank Notes Date Note Type Note Provider Name and Address Organization Details Recorded Time 01/19/2025 text/html Back PainReporte d bypatient.Location: lumbar;pain [...] Prior Imaging:MRI Sagar Kidd MD [address] [facility] [address], [place], [address], [place] [facility] 01/19/2025 18:26:25 OBGyn Episode No OBEpisode recorded.
--- OUTSIDE RECORDS SUMMARY | 2025-01-23 08:39 | XMS_ITS | Data Portability ---
Author Organization [facility] Address [address] [place] [address] Care Team Providers Care Chest Painting Leader Name Role Phone LEOPOLDO TEJADA Primary Care Provider MERYL GOODSON Embossograph Operator Assessment No assessment recorded. Plan of Treatment Reminders Order Date Submit Date Provider Last Modified By Organization Details Last Modified Time Details Appointments None recorded. Lab None recorded. Referral None recorded. Procedures None recorded. Surgeries None recorded. Imaging None recorded. Medication Orders doxycycline hyclate 100 mg capsule [address] [facility] [address] [facility] [place], [address], 3 16:23:13 montelukast 10 mg tablet [address] [facility] [address] [facility] [place], [address], 3 16:23:13 omeprazole 40 mg capsule,del ayed release [address] [facility], [address] [place], [address], 2 17:46:40 omeprazole 40 mg capsule,del ayed release 2020 021 [facility], [address] [place], [address], 14:39:12 Patient TargetsNo targets recorded. Patient Instructions Encounter Date Encounter Id Patient Instructions Last Modified By Organization Details Last Modified Time 07/22/2021 [id number] 1. Reviewed rece nt thyroid U/S results [...] months suleiman Not available 07/22/2021 14:45:38 10/01/2021 [id number] 1. We will braden nue with omeprazole for the time being. Her edema after surgery is likely contributing to her fullness in the throat. Any acid irritation can obviously make this worse. We will continue with the omeprazole for 2 more months. 2. Follow up in 3 months suleiman Not available 10/01/2021 14:42:09 01/07/2022 [id number] 1. Continue with GERD precautions and taking Omeprazole prn- I mentioned that there are some concerns regarding regular use of proton pump inhibitors in her case I think she can use it on an as-needed basis and still get relief. 2. Complete oral antibiotics and oral Prednisone as directed 3. Recommend patient take Mucinex with lots of water 4. F/u in 6 months suleiman Not available 01/07/2022 14:48:57 09/09/2022 [id number] 1. Discontinue taking Omeprazole. She has had [...] saline provided to patieint) 3. f/u prn [email or web address] Not available 09/09/2022 15:49:59 03/03/2023 [id number] 1. Laryngoscopy performed ; clinical photos obtained. I do think the excessive coughing is caused some changes in the vocal cords and not the other way around. Would like to continue to monitor this and if she is not making progress in the next 2 weeks, would like to see her back for recheck. They will call to let us know. 2. Rx- Tfumxxyvfap627ip- take 1 po bid x 14 days; Montelukast 10mg- take 1 po qd 3. F/u prn Not available 03/03/2023 16:53:04 Reason for Referral None Reported. Results Created Date Observation Date Name Description Value Unit Range Abnormal Flag Note LastModifiedBy Organization Detail LastModifiedTime 07/05/2007/02/2021 US, thyro id No observ ation record ed. [email or web address] [facility] [address] , [place], [address], 07/24/2021 13:24:23 Result Notes None recorded. Problems Name Problem SNOMED Code Status Onset Date Resolution Date Notes Provider Name and Address Organization Details Recorded Time Laryngoph aryngeal reflux 012518366 Active 2021 [facility] 14:36:08 Kidney stone 10828192 Active 2014 From Automated Load;Provi brittanie: Rae, Tavo;St atus: Active Not Available [facility] 6 02:57:08 Problem Notes None recorded. Procedures Surgical History Date Name Laterality Status Provider Name and Address Organization Details Recorded Time 03/03/20 23 Laryngoscopy Flex completed Verónica Duffon [facility] 03/03/2023 16:09:56 07/22/20 21 Laryngoscopy Flex completed STEVEN BENNETT III, MD [facility] [place], [address], [facility] 07/22/2021 14:44:03 Appendectomy completed Chely Bowen [facility] 07/22/2021 14:03:44 cholecystectomy completed Chely Wiseman [facility] 07/22/2021 14:03:55 hysterectomy completed Chely Wiseman [facility] 07/22/2021 14:04:06 [facility] 14:04:22 insertion of infusion pump [facility] [place] [facility]21 14:07:20 extraction of cataract completed [facility] 07/22/2021 14:05:38 Orthopedic Surgery completed [facility] 07/22/2021 14:06:36 closed reduction of fracture of wrist completed [facility] 07/22/2021 14:06:52 total replacement of hip completed [facility] 07/22/2021 14:07:36 repair of retina for retinal detachment completed [facility] 07/22/2021 14:07:45 Imaging Results None recorded. Procedure Notes None recorded. Medical Equipment None Reported. Allergies Allergen ID Allergen Name Allergen Category Reaction Reaction Severity Criticality Documentation Date Start Date Code Code System Note Provider Name and Address Organization Details Recorded Time Keflex medicatio n other Not available Not available 06/26/20162006 7 RxNorm React ion: BLIST ERING ; Comme nt: Creat ed By: Janessa Osorio Creat ed Date: 06/12 8:31: 08 PM; Not Available [facility] 6 11:47:01 519805 Bactrim medicatio n vomiting Not available Not available 06/26/20162014 69037 9 RxNorm React ion: NAUSE A AND VOMIT ING; Comme nt: Creat ed By: Nicole melendrez Date: 2014 9:53: 18 AM; [facility] 3 16:02:05 038098 E-Mycin medicatio n other Not available Not available 06/27/20162006 8 RxNorm React ion: BLIST ERING ; Comme nt: Creat ed By: Janessa Pack; Creat ed Date: 06/12 8:31: 25 PM; Not Available [facility] 6 07:42:37 941573 cephalexi n medicatio n Not available Not available Not available 07/22/2021 2231 RxNorm [facility] 13:50:06 977487 clindamyc in Not available Not available Not available Not available 07/22/2021 2582 RxNorm [facility] 13:50:17 911397 codeine medicatio n Not available Not available Not available 07/22/2021 2670 RxNorm [facility] 13:50:25 801415 Lyrica medicatio n Not available Not available Not available 07/22/2021 96070 1 RxNorm [facility] 13:50:36 024048 Levaquin medicatio n Not available Not available Not available 07/22/2021 37601 2 RxNorm [facility] 13:50:47 Medications Name Sig Start Date Stop [...] mg tablet Daily 07/22 completed Frequen cy: daily;M edicati on Descrip tion: simvast atin; Dosage: 1; Route:o ral; refills :0 Not Available Not Available Not Available Celebrex 200 mg capsule At Onset 07/22 completed Frequen cy: at onset;M edicati on Descrip tion: celecox ib; Dosage: [...] completed Duratio n: 30 days;Fr equency : daily;M edicati on Descrip tion: venlafa xine; Dosage: 1 [...] completed Not Available Not Available Not Available Julioinaugustin Forte 2 mg tablet Three times a [...] Updated DateTime 3 170.18 cm 31.5 kg/m2 66359.0 7 g 98 [degF] 78 /min 95 % 95 % 132 mm[Hg] 75 mm[Hg] Qing Jerome [facility] 3 14:37:32 Date Recorded Body height Body mass index (BMI) Body weight Body temperature Heart rate Oxygen saturation Oxygen saturation in Arterial blood by Pulse oximetry Systolic blood pressure Diastolic blood pressure Provider Name and Address Organization Details Last Updated DateTime 2 170.18 cm 31.5 kg/m2 60111.1 7 g 97.7 [degF] 92 /min 95 % 95 % 149 mm[Hg] 86 mm[Hg] Winnie Johnson [facility] 2 14:12:32 Date Recorded Body height Body mass index (BMI) Body weight Body temperature Heart rate Oxygen saturation Oxygen saturation in Arterial blood by Pulse oximetry Systolic blood pressure Diastolic blood pressure Provider Name and Address Organization Details Last Updated DateTime 2 170.18 cm 31.6 kg/m2 14417.6 6 g 97.3 [degF] 64 /min 93.01 % 93.01 % 163 mm[Hg] 89 mm[Hg] Monalisa Madrigal [facility] 2 14:12:58 Date Recorded Body height Body mass index (BMI) Body weight Body temperature Heart rate Oxygen saturation Oxygen saturation in Arterial blood by Pulse oximetry Systolic blood pressure Diastolic blood pressure Provider Name and Address Organization Details Last Updated DateTime 3 170.18 cm 30.5 kg/m2 95935.5 1 g 98.6 [degF] 70 /min 92 % 92 % 161 mm[Hg] 83 mm[Hg] JanieFarideh Houserley [facility] 3 15:29:01 Date Recorded Body weight Body mass index (BMI) Body height Body temperature Heart rate Systolic blood pressure Diastolic blood pressure Provider Name and Address Organization Details Last Updated DateTime 1 96444.7 8 g 31.5 kg/m2 170.18 cm 97.5 [degF] 66 /min 140 mm[Hg] 85 mm[Hg] Chely Wiseman [facility] 1 14:12:02 Social History None recorded. Functional Status None [...] SNOMED-CT Code Diagnosis ICD10 Code Diagnosis Note [id number] MD MAXIMILIANO CANELA III 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 CL[facility] [address] [place] [address] 10/01/2021 14:04:50 10/01/2021 14:40:49 Multinodular goiter 631693811 E04.2 - R>L Laryngopha ryngeal reflux 138345824 K21.9 Feeling of lump in throat 930023091 F45.8 R -Anterior Dissection 07/31/2021 -she likely still has some edema Chronic cough 18774422 R 05.3 - onset 03/2021 following significan t bronchitis -this has resolved Clearing t hroat - hawking 653468627 R05.9 - constant -cleared after omeprazole use Hoarse 93856720 R49.0 - mild Disorder o f uvula of palate 615369240 J39.9 [id number] MD MAXIMILIANO CANELA IIIJovana [facility] CLOSED [address] [place] [address] 01/07/2022 14:06:37 01/07/2022 14:37:57 Multinodular goiter 499079270 E04.2 - R>L Laryngopha ryngeal reflux 342442332 K21.9 Feeling of lump in throat 960139571 F45.8 R -Anterior Dissection 07/31/2021 -she likely still has some edema Chronic cough 45479927 R 05.3 - onset 03/2021 following significan t bronchitis -this has resolved Clearing t hroat - hawking 081925912 R05.9 - constant -cleared after omeprazole use Acute bronchitis 4136694 2 J20.9 Currently on steroids and Augmentin i mproved Inspiratory wheezing 315 95873 R06.2 - secondary to acute bronchitis . [id number] MD MAXIMILIANO CANELA III ENT [facility] CLOSED [address] [place] [address] 09/09/2022 14:30:54 09/09/2022 16:01:43 Laryngopharyngeal reflux 886872164 K21.9 Nasal mucosa dry 0323196 2 J34.89 Pharyngeal dryness 94473 8009 J39.2 [id number] MD MAXIMILIANO CANELA III ENT [facility] CLOSED [address] [facility] [place] [address] 03/03/2023 15:04:46 03/04/2023 10:24:21 Chronic cough 57299119 R05.3 - onset 03/2021 following significan t bronchitis -this has resolved Change in voice 65636673 5 R49.9 Laryngopha ryngeal reflux 588374238 K21.9 History of pertussis 161 911101 Z87.09 I do not know if she is totally cleared this from her system Xerostomia 71028764 K11. 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 Health Concerns Section Related Observation LastModified by Organization Nuria foote LastModified Time None Recorded Concern Status LastModified by Organization Details LastModified Time None Recorded Advance Directives Directive None Recorded Payers Insurance Date Sequence Insurance Name Policy Number Policy Gibbs Covered Member ID Gibbs Member ID Guarantor Name 10/01/2021 2 [employer] (INDEMNITY) [id number] Jose Frank [id number] Sandie Frank 03/03/2023 1 [place] Sandie Frank [id number] Sandie Frank 12/30/2017 2 [employer] (MEDICARE SUPPLEMENT) [id number] Jose Frank [id number] Sandie Frank 03/03/2023 2 [place] [id number] Jose Frank [id number] Sandie Frank Notes Date Note Type Note Provider Name and Address Organization Details Recorded Time 07/22/2021 text/html Sandie Frank is seen today, referred by BACK SHOE WORKER Meryl Goodson, for evaluation of enlarged thyroid [...] history of hypothyroidism. STEVEN BENNETT III, MD [address] [place] [address], [address], [facility] 07/22/2021 14:46:28 10/01/2021 text/html The patient is [...] limitation of mobility. STEVEN BENNETT III, MD [facility] [place], [address], [facility] 10/01/2021 14:42:38 01/07/2022 text/html [facility] in follow up of her laryngopharyngeal reflux, [...] of hypothyroidism. MD Bessy CANELA [place], [address], [facility] 01/07/2022 14:49:16 09/09/2022 text/html Sandie visits us [...] congestion as a result of having bronchitis. STEVEN BENNETT III, MD [facility] [place], [address], [facility] 09/09/2022 15:52:32 03/03/2023 text/html Sandie comes in [...] which has been treated with Omeprazole daily. STEVEN BENNETT III, MD [address] [place] [address], [address], [facility] 03/03/2023 16:53:31 OBGyn Episode No OBEpisode recorded.
--- OUTSIDE RECORDS SUMMARY | 2025-01-23 08:39 | XMS_ITS | Encounter Summary ---
Author Organization [employer] Address [address] [place] [address] Care Team Providers Care Perch Mender Name Role Phone Unavailable Primary Care Provider Unavailabl e Encounter Details Date Type Department Care Team (Late st Contact Info) Description 07/29/2019 Transcribed Document [facility] Family Medicine [facility] [place] [address] ProviderSonia MD [address] [place], [place] [address] Social History Tobacco Use Types Packs/Day Years Used Date Smoking Tobacco: Never Assessed Comments Unknown Sex and Gender Information Value Date Recorded Sex Assigned at Not on file Legal Sex Female 1:42 PM CDT Gender Identity Not on file Sexual Orientation Not on file documented as of this encounter Miscellaneous Notes * Cerner Conversion Note - Historical ProviderMD - 07/29/2019 12:02 PM POWER PLANT ASSISTANT On Going Discharge Planning Entered On: 07/29/2019 12:08 EST Performed On: 07/29/2019 12:02 EST by REMY LOPEZ, Care Management-Delivery Motorcycle Driver Care Management Progress Note Discharge Arrangements : Patient Post-Acute Information Patient Name: SANDIE FRANK Gender: Female : 51 Age: 63 Years No Post-Acute Placement(s) Listed No Post-Acute Service(s) Listed No [place] Referral(s) Listed Discharge Options Discussed with Patient : Short term rehabilitation REMY LOPEZ, Care Management-Delivery Motorcycle Driver - 07/29/2019 12:02 EST Narrative Progress Note Narrative Progress Note : [facility] has not responded, message left, lengthy discussion with pt and spouse regarding branching out to broaden search. also to look at [facility] swing Bed, they are agreeable to only 4 or 5 star rated facilities as presented in sury Moore. Spouse indicated we are trying to get rid of pt but no SNF wants her and they dont know what to do. Case Management informed pt and spouse that we are not trying to get rid of pt. only to continue to work on the most appropriate plan for the pt. and for the next level of care and that the hospital does not have a rehab unit and it will be more beneficial to pt if we can get her into rehab but as of this date we do not have that option. Referral process continued with [facility], Case Management will continue to follow. Historical Progress Note : Per Romina at [facility], they are unable to accept due to cost of medications. awaiting contact from [facility] REMY LOPEZ, Care Management-Delivery Motorcycle Driver - 07/28/19 14:45:58 Received call from Catalina that at [facility] states the pt is declined for acute rehab and they are apprehensive about her coming to [facility] due to her physical level of care. JAS relayed this to the pt and spouse and they agree to have the pt referred to the following: [facility], [facility] and [place]. CM will fu for possible offers. Med list sent to [facility] for review. NICHOLAS HOGUE, RN-Business Development Executive - 07/26/19 15:40:13 JAS sent text to Catalina with [facility] this am requesting update on bed availability. She has the pt being reviewed by their physician. JAS set ambulance tentatively for tomorrow at 1400. Awaiting word from [facility]. NICHOLAS HOGUE, RN-Business Development Executive - 07/25/19 15:17:05 JAS sent text to [place] with [facility] this am requesting update on bed availability. She has the pt being reviewed by their physician. JAS set ambulance tentatively for tomorrow at 1400. Awaiting word from [facility]. JAS updated pt and family. NICHOLAS HOGUE, RN-Business Development Executive - 07/25/19 15:24:48 07/24 met with mrs Farnk and she is awake and les shaky today... States she wants to go to rehab for getting strength and balance .. Await JUAN garsia ,, She 's had her 3 Midnight stay in hospital .... LAMBERT Steele, RN-Business Development Executive - 07/24/19 15:20:00 REMY LOPEZ, Care Management-Delivery Motorcycle Driver - 07/29/2019 12:02 EST Electronically signed by Raman, [facility] Conversion [place] Cerner at 11/19/2022 8:39 PM CDT documented in this encounter Plan of Treatment Not on file documented as of this encounter Visit Diagnoses Not on filedocumented in this encounter
--- OUTSIDE RECORDS SUMMARY | 2025-01-23 08:39 | XMS_ITS | Encounter Summary ---
Author Organization [employer] Address [address] [place] [address] Care Team Providers Care Edge Roller Name Role Phone Unavailable Primary Care Provider Unavailabl e Encounter Details Date Type Department Care Team (Late st Contact Info) Description 07/28/2019 Transcribed Document [facility] Family Medicine [facility] [place] [address] ProviderSonia MD [address] [place] [id number] Social History Tobacco Use Types Packs/Day Years Used Date Smoking Tobacco: Never Assessed Comments Unknown Sex and Gender Information Value Date Recorded Sex Assigned at Not on file Legal Sex Female 1:42 PM CDT Gender Identity Not on file Sexual Orientation Not on file documented as of this encounter Miscellaneous Notes * Cerner Conversion Note - Historical ProviderMD - 07/28/2019 2:00 AM TRUCKING MANAGER Magento Developer Details Entered On: 07/28/2019 2:26 EST Performed On: 07/28/2019 2:00 EST by Myrna Deleon RN Order Details Transport Mode Order Detail : Bed (including specialty) Isolation Precautions Order Detail : Standard Precautions Order Detail : 0 IV Order Detail : 0 Oxygen Order Detail : 0 Nurse Collect Order Detail : 0 Lift/Transfer : Maximal assist Central Line Order Detail : No Room Service : Appropriate Arterial Line : No Myrna Deleon RN - 07/28/2019 2:26 EST Electronically signed by Ivelisse Camargo Conversion Plumbing Service Technician Cerner at 11/19/2022 8:36 PM CDT documented in this encounter Plan of Treatment Not on file documented as of this encounter Visit Diagnoses Not on filedocumented in this encounter
--- OUTSIDE RECORDS SUMMARY | 2025-01-23 08:39 | XMS_ITS | Encounter Summary ---
Author Organization Healthcare Address [address] [place] [address] Care Team Providers Care Supervisor Industrial Garment Name Role Phone Marc Rodriguez MD Primary Care Provider [phone] Edgardo Zuñiga MD Unavailable [phone] Giulia Briggs Unavailable [phone] Edgardo Zuñiga MD Unavailable [phone] Esther Mathew Unavailable [phone] Reason for Visit * Reason Onset Date Comments Med Refill 07/05/2024 Encounter Details Date Type Department Care Team (Late st Contact Info) Description 07/05/2024 [facility] [address] [place] [address] Esther Mathew PA [address] [place] [address] Social History Tobacco Use Types [...] Date Recorded Patient Health Questionnaire-2 Score 0 07/05/2024 Hunger Vital Sign Answer Date Recorded Within [...] place to sleep or slept in a fci (including now)? No 05/13/2024 PHQ-9 Answer Date Recorded Patient Health Questionnaire-9 Score 0 07/05/2024 Utilities Answer Date Recorded In the past 12 months has th e [employer], gas, oil, or water company threatened to [...] pleasure in doing things Not at all 07/05/2024 10:01 AM Preeti Mclaughlin Feeling down, depressed, or hopeless Not at all 10/2023 10:01 AM Preeti Mclaughlin Patient Health Questionnaire-2 Score 0 10/2023 10:01 AM Preeti Mclaughlin * Question Answer Date of Assessment Author Trouble falling or staying a sleep, or sleeping too much Not at all 07/05/2024 10:01 AM Preeti Mclaughlin Feeling tired or having little energy Not at all 10/2023 10:01 AM Preeti Mclaughlin Poor appetite or overeating Not at all 07/05/2024 10 :01 AM Preeti Mclaughlin Feeling bad about yourself - or that you are a failure or have let yourself or your family down Not at all 07/05/2024 10:01 AM Preeti Mclaughlin Trouble concentrating on thi ngs, such as reading the newspaper or watching television Not at all 07/05/2024 10:01 AM Preeti Mclaughlin Moving or speaking so slowly that other people could have noticed? Or the opposite - being so fidgety or restless that you have been moving around a lot more than usual. Not at all 07/05/2024 10:01 AM Nixon Mclaughlin Thoughts that you would be b renée off or hurting yourself in some way Not at all 07/05/2024 10:01 AM Preeti Mclaughlin Patient Health Questionnaire-9 Score 0 10/2023 10:01 AM Preeti Mclaughlin * Calculated C-SSRS Risk Score (Lifetime/Recent) Answer Date of Assessment Author No Risk Indicated 07/05/2024 10:00 AM Nixon Mclaughlin * If you checked off any problems on this questionnaire so far, Question Answer Date of Assessment Author How difficult have these problems made it for you to do your work, take care of things at home, or get along with other people? Not difficult at all 07/05/2024 10:01 AM Preeti Mclaughlin * Question Answer Date of Assessment Author 1. Wish to be (Past 1 Month) No 024 10:00 AM EST Preeti Delacruz 2. Non-Specific Active Suici arpan Thoughts (Past 1 Month) No 07/05/2024 10:00 AM EST Preeti Delacruz 6. Suicidal Behavior (Lifetime) No 10:00 AM EST Nubia Preeti Ledezma documented as of this encounter Miscellaneous Notes * Telephone Encounter - Esther Mathew PA - 07/06/2024 8:26 AM EST I will hold on the refill if this was stopped by another provider. documented in this encounter Plan of Treatment Upcoming Encounters Date Type Department Care Team (Late st Contact Info) Description 02/21/2025 11:00 AM EDT Office Visit [facility] [address] [place] [id number] Dorys Sommers DO [address] [facility] [address] [place] [address] 03/08/2025 1:40 PM EDT Office Visit [facility] Orthopaedic Surgery & Sports Medicine [address] [place] [address] Edgardo Zuñiga MD [address] [facility] [address] [place] [address] 03/09/2025 1:20 PM EDT Office Visit [facility] [address] [place] [address] Suzan Galindo DO [address] [place] [address] documented as of this encounter Visit Diagnoses Not on filedocumented in this encounter Additional Health Concerns Assessment Noted Time PHQ-9 Depression Total Score: 0 07/05/20 24 10:01 AM EST A fall risk assessment has been complete d for the patient 07/05/2024 10:01 AM EST A Body Mass Index follow-up plan has been documented for the patient 07/05/2024 11:09 AM EST documented as of this encounter Care Teams Supervisor Industrial Garment Relationship Specialty Start Date End Date Marc Rodriguez MD [address] [place], [place] [address] PCP - General 12/14/20 Edgardo Zuñiga MD [address] [place] [address] Surgeon Neurosurgery 03/04/21 Giulia Briggs PA [address] [place] [address] Physician Informatica Architect Neurosurgery 07/03/21 Edgardo Zuñiga MD [address] [place] [address] Surgeon Neurosurgery 09/16/21 Esther Mathew PA [address] [place] [address] Physician [employer]formatica Architect Neurology 11/19/22 documented as of this encounter
--- OUTSIDE RECORDS SUMMARY | 2025-01-23 08:39 | XMS_ITS | Encounter Summary ---
Author Organization Healthcare Address [address] [place] [address] Care Team Providers Care Qa Automation Developer Name Role Phone Marc Rodriguez MD Primary Care Provider [phone] Edgardo Zuñiga MD Unavailable [phone] Giulia Briggs Unavailable [phone] Edgardo Zuñiga MD Unavailable [phone] Esther Mathew Unavailable [phone] Encounter Details Date Type Department Care Team (Late st Contact Info) Description 12/16/2023 Orders Only External Location [address] [place] [id number] Provider, External Social History Tobacco Use Types Packs/Day Years [...] Description 02/21/2025 11:00 AM EDT Office Visit [facility] [address] [place] [address] Dorys Sommers, DO [address] [place] [address] 03/08/2025 1:40 PM EDT Office Visit [facility] Orthopaedic Surgery & Sports Medicine [address] [place] [address] Edgardo Zuñiga MD [address] [place] [address] 03/09/2025 1:20 PM EDT Office Visit [facility] at [facility] [address] [place] [address] Suzan Galindo DO [address] [place] [address] documented as of this encounter Procedures Procedure Name Priority Date/Time Associated Diagnosis Comments MR OUTSIDE IMAGES 12/16/2023 1:05 PM EDT documented in this encounter Results * MR transfer of outside films (12/16/2023 1:05 PM EDT) Anatomical Region Laterality Modality Magnetic Resonan ce 12/16/2023 1:05 PM EDT us External Provider IMG MRI PROCEDURES Final Resul t documented in this encounter Visit Diagnoses Not on filedocumented in this encounter Additional Health Concerns Infection Onset Date Last Indicated Resolved Time Meningitis Rule-Out 05/14/2024 05/14/2024 05/14/20 2:47 PM EDT Meningitis Rule-Out 05/25/2024 05/25/2024 05/25/20 11:46 AM EDT Assessment Noted Time A fall risk assessment has been complete d for the patient 12/16/2023 2:34 PM EDT A Body Mass Index follow-up plan has been documented for the patient 12/16/2023 3:10 PM EDT documented as of this encounter Care Teams Qa Automation Developer Relationship Specialty Start Date End Date Marc Rodriguez MD [address] [place] [address] PCP - General 12/14/20 Edgardo Zuñiga MD [address] [place] [address] Surgeon Neurosurgery 03/04/21 Giulia Briggs PA [address] [place] [address] Physician Fire Controlman Neurosurgery 07/03/21 Edgardo Zuñiga MD [address] [place] [address] Surgeon Neurosurgery 09/16/21 Esther Mathew PA [address] [place] [address] Physician Fire Controlman Neurology 11/19/22 documented as of this encounter
--- OUTSIDE RECORDS SUMMARY | 2025-01-23 08:39 | XMS_ITS | Clinical Summary ---
Author Organization [facility] Address [address] [place] [address] Care Team Providers Care Master Brewer Name Role Phone Marc Rodriguez MD Primary Care Provider [phone] Edgardo Zuñiga MD Unavailable [phone] Giulia Briggs Unavailable [phone] Edgardo Zuñiga MD Unavailable [phone] Esther Mathew Unavailable [phone] Allergies Active Allergy Reactions Criticality Noted Date Comments Cephalexin Hives,Itching,Rash Medium 10/18/2007 Clindamycin Rash Low 12/20/2010 Codeine Other - please docum ent in the comment field Low 12/20/2010 Patient has a pain pump in place with fentanyl Erythromycin Hives,Itching,Rash Medium 10/18/2007 Gabapentin Hallucinations Medium 08/13/2021 Levofloxacin Rash Low 04/01/2018 Rash in mouth with itching 4 years ago per Meropenem Rash Low 04/01/2018 is unsure if this is a true allergy Nirmatrelvir-Ritonavi r Other - please document in the comment field High 08/11/2023 Pt stated it reacted with pt's pain pump and increased effects of fentanyl Pregabalin Other - please docum ent in the comment field Low 01/26/2015 Hallucinations with a high dose Sulfamethoxazole-Trim ethoprim Other - please document in the comment field Low 02/12/2015 Medications DULoxetine (Cymbalta) [address] capsule Take 1 capsule (60 mg) by mouth 2 (two) times a day. Active hydrocortisone (Cortef) 5 MG tablet Take 1 tablet (5 mg) by mouth 2 (two) times a day. Active montelukast (Singulair) 10 MG tablet Take 1 tablet (10 mg) by mouth nightly. Active QUEtiapine (SEROquel) 300 MG tabletIndicatio ns:Bipolar Mood Disorder Take 1 tablet (300 mg) by mouth nightly. Active rosuvastatin (Crestor) 20 MG tablet Take 1 tablet (20 mg) by mouth nightly. Active sodium bicarbonate 650 MG tablet Take 1 tablet (650 mg) by mouth nightly. Active levothyroxine (Synthroid, Levoxyl) 88 MCG tablet Take 1 tablet (88 mcg) by mouth daily before breakfast. Active Melatonin 10 MG tablet Take 10 mg by mouth every night. Active acetaminophen (Tylenol) 500 MG tablet Take 2 tablets (1,000 mg) by mouth every 6 (six) hours. Active polyethylene glycol (Miralax) 17 GM/SCOOP powder Take 17 g by mouth daily as needed. Active Menthol, Topical Analgesic, (BIOFREEZE EX) Apply topically. Active denosumab (Prolia) 60 MG/ML injection Inject 1 mL (60 mg) under the skin every 6 (six) months. Due May 2024 Active Fluticasone Furoate-Vilante rol 100-25 MCG/ACT aerosol powder Inhale 1 puff Daily. Active diazePAM (Valium) 2 MG tablet Take 1 tablet (2 mg) by mouth every 6 (six) hours if needed (Severe muscle spasm). 03/27/20 Active Additional Information Patient not taking.Reported on 12/07/2024 oxyCODONE (Roxicodone) 10 MG immediate release tablet Take 1 tablet (10 mg) by mouth every 4 (four) hours if needed for severe pain. 03/27/20 Active Additional Information Patient not taking.Reported on 12/07/2024 Implanted pain pump by Implant route. Dilaudid intrathecal pump at 10 mg/mL with a daily dose of 10.995mg per day. Active aspirin 81 MG EC tablet Take 1 tablet (81 mg) by mouth daily. Active pantoprazole (Protonix) 40 MG EC tablet Take 1 tablet (40 mg) by mouth daily. Do not crush, chew, or split. Active simethicone (Mylicon) 80 MG chewable tablet Chew 1 tablet (80 mg) every 6 hours as needed. Active calcium carbonate (Tums) 500 MG chewable tablet Chew 1 tablet (500 mg) daily. Active naloxone (Narcan) 4 mg/0.1 mL nasal spray 1. Give 1 spray in nostril for no/slow breathing or cannot wake after opioid use 2. Call 911 3. Repeat in other nostril if symptoms continue 05/27/20 24 Active Dupilumab (Dupixent) 300 MG/2ML solution auto-injector Active galcanezumab-gn lm (Emgality) 120 MG/ML injection Inject 1 Syringe (120 mg) under the skin every 30 (thirty) days. 1 each 07/19/20 24 025 Active amLODIPine (Norvasc) 5 MG tablet Take 1 tablet (5 mg) by mouth daily. 08/17/19 25 Active ondansetron (Zofran) 4 MG tablet Take 1 tablet (4 mg) by mouth every 8 hours as needed for nausea. 07/13/20 24 Active lamoTRIgine (LaMICtal) 100 MG tablet Take 1 tablet (100 mg) by mouth 2 (two) times a day. 180 tablet 3 09/26/19 25 026 Active memantine (Namenda) 10 MG tablet Take 1 tablet (10 mg) by mouth 2 (two) times a day. 180 tablet 3 09/26/19 25 026 Active Linzess 72 MCG capsule capsule Take 1 capsule by mouth daily. 10/04/19 25 Active Trulance 3 MG tablet Take 1 tablet by mouth daily. 10/24/19 25 Active ubrogepant (Ubrelvy) 100 MG tablet TAKE 1 TABLET BY MOUTH ONE TIME NEEDED FOR MIGRAINE. AFTER 2 HOURS, A SECOND DOSE MAY BE TAKEN IF NEEDED. MAX 200MG IN 24 HOURS 10 each 3 12/10/19 25 Active dantrolene (Dantrium) 50 MG capsuleIndicati ons:Cervical cord compression with myelopathy (CMS/HCC) Take 2 capsules by mouth 4 times a day. 240 capsule 3 12/08/19 25 Active busPIRone (Buspar) 5 MG tabletIndicatio ns:Total self-care deficit,Impaire d cognition Take 1 tablet by mouth 3 times a day. 90 tablet 3 12/08/19 25 Active baclofen (Lioresal) 10 MG tablet Take 1 tablet by mouth 4 times a day. 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 03/18/2024 Motor speech disorder 02/10/2022 Total self-care deficit 02/10/2022 Obesity (BMI 30.0-34.9) 10/17/2021 Laryngopharyngeal reflux 10/01/[address] 08/13/2021 Cervical radiculopathy 07/31/2021 Hypothyroidism 07/30/2021 Decreased activity tolerance 07/30/2021 CKD (chronic kidney disease) 07/30/2021 Cervical cord compression with myelopathy 2020 Overview (07/02/2021): Added automatically from request for surgery [id number] Chronic bilateral low back pain with bilateral s ciatica 04/22/2021 Overview (04/22/2021): Added automatically from request for surgery [id number] Environmental and seasonal allergies 11/12/2020 Restless legs syndrome 11/12/2020 Adrenal insufficiency 02/22/2019 Overview (03/04/2021): chronic steroids - Cortef Unsteady gait 12/20/2018 S/P insertion of intrathecal pump 10/18/2018 Fibromyalgia 08/31/2018 Rheumatoid arthritis 08/31/2018 Glenohumeral arthritis 07/22/2018 Chronic allergic rhinitis 12/24/2017 Gastroesophageal reflux disease 12/24/2017 Moderate persistent asthma 12/24/2017 Arm pain 12/21/2017 DDD (degenerative disc disease), cervical 2017 Neck pain 12/21/2017 Dermatitis due to unknown cause 06/19/2017 Balance problem 04/24/2016 Impaired cognition 02/14/2016 Memory loss 02/05/2016 Kidney stone 07/18/2015 Resolved Problems Problem Noted Date Diagnosed Date Resolved Date Lumbar stenosis with neurogenic claudication 2 10/18/2021 Lumbosacral radiculopathy at L5 04/22/2021 10/18/2021 Overview (04/22/2021): Added automatically from request for surgery [id number] Spinal stenosis, lumbar clara on without neurogenic claudication 04/22/2021 10/18/2021 Overview (04/22/2021): Added automatically from request for surgery [id number] Spondylolisthesis at L4-L5 level 04/22/2021 10/18/2021 Overview (04/22/2021): Added automatically from request for surgery [id number] AVN (avascular necrosis of bone) 08/30/2018 07/30/2021 Rotator cuff arthropathy 08/30/2018 Decreased range of motion of shoulder 07/22/2018 07/30/2021 Humeral fracture 04/01/2018 07/30/2021 Biceps tendonitis 04/01/2018 07/30/2021 Rotator cuff dysfunction 04/01/2018 Purpura 06/19/2017 07/30/2021 Itching 06/02/2017 07/30/2021 Status migrainosus 08/08/2015 Encounters Date Type Department Care Team Description 01/02/2025 Refill [place] [facility] [address] [place] [id number] Esther Mathew, JAMES 12/07/2024 1:10 PM EDT Office Visit [facility] [address] [place] [id number] Suzan Galindo DO Cervical cord compression with myelopathy (CMS/HCC); Total self-care deficit; Impaired cognition 12/07/2024 Travel 12/06/2024 Refill [facility] [address] [place] [address] Esther Mathew, PA 11/29/2024 Refill [facility] [address] [place] [address] Esther Mathew, PA 11/11/2024 Telephone [facility] [address] [place] [address] Suzan Galindo DO HCN Status Update Call #2 11/08/2024 Orders Only [facility] [address] [place] [address] Juwan Stein DO Spasticity (Primary Dx); Left-sided weakness; Thoracic myelopathy; Chronic bilateral low back pain with bilateral sciatica 11/08/2024 Telephone [facility] [address] [place] [address] Suzan Galindo DO HCN Clinical Concern/Question 2024 1:30 PM EDT Office Visit [facility] [address] [place] [address] Edgardo Zuñiga MD S/P lumbar fusion (Primary Dx) 2024 1:21 PM EDT - 2024 11:59 PM EDT Hospital Encounter [facility] [address] [place] [address] S/P lumbar fusion Discharge Disposition: Home or Self Care 2024 Travel 10/24/2024 Refill [facility] [address] [place] [address] Esther Mathew, PA from Last 3 Months Immunizations Immunization Administration Dates Next Due Hep A, Adult 02/17/2019,07/19/2018 Influenza, Unspecified 06/03/2018 Influenza, high-dose, quadrivalent 05/30,03/30/2020,03/30/2020,2018,05/27/2019 Influenza, injectable, quadrivalent 06/07/2018,1 Influenza, seasonal, injectable 05/24/2015 Influenza, seasonal, injecta ble, preservative free 05/17/2015 Moderna COVID-19 Vaccine (Re d Cap) 12+ years 10/14/2020,09/16/2020 Pneumococcal Conjugate PCV 13 03/25/2019 Pneumococcal, Unspecified 03/10/2016 TD (adult), 2 Lf tetanus tox oid, preservative free, adsorbed 10/07/1996 Tdap 09/19/2015 Family History Medical History Relation Name Comments Anxiety disorder Mother Suma Cardiac disorder Mother Suma Depression Mother Usma Diabetes Mother Suma Fibromyalgia Mother Suma Other cancer Mother Suma Stroke Mother Suma Thyroid disease Mother Suma Diabetes Sister Anesthesia problems Neg Hx Malig Hyperthermia Neg Hx Relation Name Status Comments Mother Suma Sister Social History Tobacco Use Types Packs/Day Years [...] the money to buy more. Never true 10/11/20 24 Within the past 12 months, t [...] AM EST Sexual Orientation Not on file Last Filed Vital Signs Vital Sign Reading Time Taken Comments Blood Pressure 124/73 12/07/2024 12:47 PM EDT Pulse 77 12/07/2024 12:47 PM EDT Temperature 36.3 C (97.3 F) 06/22/2024 10:57 AM EST Respiratory Rate 16 09/21/2024 11:49 AM EST Oxygen Saturation 95% 12/07/2024 12:47 PM EDT Inhaled Oxygen Concentration - - Weight 88 kg (194 lb 0.1 oz) 12/07/2024 12:47 PM EDT Height 170.2 cm (5' 7 ) 12/07/2024 12:47 PM EDT Body Mass Index 30.39 12/07/2024 12:47 PM EDT Plan of Treatment Upcoming Encounters Date Type Department Care Team (Late st Contact Info) Description 02/21/2025 11:00 AM EDT Office Visit [facility] [address] [place] [address] Dorys Sommers, DO [address] [place] [address] 03/08/2025 1:40 PM EDT Office Visit [facility] [address] [place] [address] Edgardo Zuñiga MD [address] [place] [address] 03/09/2025 1:20 PM EDT Office Visit [facility] [address] [place] [address] Suzan Galindo, [address] [place] [address] Health Maintenance Due Date Last Done Comments [facility]-Bone Density Scan 1955 [facility]-Medicare Annual Wellness (AWV) 1955 [facility]-Infant/Child/Adol SDOH Screenings 1955 [facility]-Breast Cancer Screening 11/01/2003 [id number] Vaccine ( season) 2024 07/15/2023, 04/30/2022, 12/19/2021, Additional history exists [facility]- SDOH Screenings 11/11/2024 [facility]-Adult SDOH Screenings 11/11/2024 05/13/2024 [facility]-Depression Screening 12/07/2025 025, 07/05/2024, 08/13/2021 [facility]-DTaP,Tdap,and Td Vaccines (3 - Td or Tdap) 12/09/2032 12/09/2022, 09/19/2015, 10/07/1996 [facility]-Hepatitis A Vaccines Aged Out 02/17/2019, 07/03 No longer eligible based on patient's age to complete this topic [facility]-Pneumococcal Vaccine: 50+ Years Completed 03/11/2022, 03/25/2019, 03/10/2016 [facility]-Zoster Vaccines Completed 05/29/2023, [facility]-RSV Vaccine: 60+ Years or Completed 08/13/2023 [facility]-Hepatitis C Screening Completed 04/25/2024 [facility]-Influenza Vaccine Completed 07/13/2024 , 05/01/2023, 06/07/2022, Additional history exists [facility]-Obesity Intervention Completed 025, 2024, 09/26/2024, Additional history exists HPV Vaccines Aged Out No longer eligi ble based on patient's age to complete this topic [facility]-HIB Vaccines Aged Out No longer e ligible based on patient's age to complete this topic [facility]-IPV Vaccines Aged Out No longer e ligible based on patient's age to complete this topic [facility]-Rotavirus Vaccines Aged Out No lo nger eligible based on patient's age to complete this topic Medical Devices Implanted Type Area Kelp Cutter Device Identifier Shelf Expiration Date Model / Serial / Lot Cif Ui H 8mm 8deg S - [id number] Implanted:Qty : 1 on 07/31/2021 by Edgardo Zuñiga MD at [facility] Cage N/A: Spine Cervical [employer]ine Sales -[id number] 01/31/2024 [id number] / / [id number] Synchromed Iii Implanted:Qty : 1 on 10/09/2023 Pain Pump Abdomen Medtronic 8667-20 / [id number] / One Level Plate, 12mm - S. - [id number] Implanted:Qty : 1 on 07/31/2021 by Edgardo Zuñiga MD at [facility] Plate N/A: Spine Cervical De[employer]ine [employer] [id number] 07/31/2021 [id number] / . / Pre-Lordosed Joe W/ Line 40mm - [id number] Implanted:Qty : 2 on 10/16/2021 by Edgardo Zuñiga MD at [facility] Joe Spine Lumbar [employer] [id number] 10/16/2022 [id number] / / Self Drilling Screw 16mm - S. - [id number] Implanted:Qty : 4 on 07/31/2021 by Edgardo Zuñiga MD at [facility] Screw N/A: Spine Cervical De[employer]ine [employer] LP-[id number] 07/31/2022 [id number] / . / Screw 5.5mm Viper Ti Fen Crtcl Polyax 8mm X 50mm - [id number] Implanted:Qty : 4 on 10/16/2021 by Edgardo Zuñiga MD at [facility] Screw Spine Lumbar [employer] LP-[id number] 10/16/2022 [id number] / / Spinal Cord Stimulator Spinal Cord Stimulator [facility] [employer] [id number] / [id number] / Description:LEADS (2): MODEL # [id number] Graft Vivigen 1cc - [id number] Implanted:Qty : 1 on 07/31/2021 by Edgardo Zuñiga MD at [facility]-[id number] 07/15/2022 BL-1500-001 / / [id number] Graft Vivigen 5cc - [id number] Implanted:Qty : 1 on 10/16/2021 by Edgardo Zuñiga MD at [facility] Spine Lumbar [facility]-[id number] 10/11/2022 BL-1500-002 / / [id number] Post Ibf Ui H 12mm 8deg 24/04 - [id number] Implanted:Qty : 1 on 10/16/2021 by Edgardo Zuñiga MD at [facility] Spine Lumbar [employer]ine [employer] -[id number] 02/01/2022 [id number] / / Post Ibf Ui H 12mm 8deg 24/04 - [id number] Implanted:Qty : 1 on 10/16/2021 by Edgardo Zuñiga MD at [facility] Spine Lumbar [employer]ine Sales -[id number] 05/02/2025 [id number] / / Single Inner Setscrew - [id number] Implanted:Qty : 4 on 10/16/2021 by Edgardo Zuñiga MD at [facility] Spine Lumbar [employer]ine [employer] -[id number] 10/16/2022 [id number] / / Graft Vivigen 15cc - [id number] - [id number] Implanted:Qty : 1 on 03/18/2024 by Edgardo Zuñiga MD at [facility] N/A: Spine Lumbar [facility]-[id number] 02/02/2025 BL-1500-004 -[id number] / [id number] / [id number] Screw 5.5mm Viper Ti Fen Crtcl Polyax 7mm X 50mm - [id number] Implanted:Qty : 3 on 03/18/2024 by Edgardo Zuñiga MD at [facility] N/A: Spine Lumbar DePuy Spine [employer] LP-[id number] / / Single Inner Setscrew - [id number] Implanted:Qty : 6 on 03/18/2024 by Edgardo Zuñiga MD at [facility] N/A: Spine Lumbar DePuy Spine [employer] LP-[id number] / / Pre-Lordosed Joe W/ Line 65mm - [id number] Implanted:Qty : 2 on 03/18/2024 by Edgardo Zuñiga MD at [facility] N/A: Spine Lumbar DePuy Spine [employer] [id number] / / Procedures Procedure Name Priority Date/Time Associated Diagnosis Comments XR LUMBAR SPINE 2 OR 3 VIEWS Routine 2024 1:40 PM EDT S/P lumbar fusion HEPATITIS C ANTIBODY - ED W/REFLEX TO HCV QUANT PCR STAT 04/25/2024 10:55 PM EDT from Last 3 Months or Most Recently Relevant to Health Maintenance Results * XR Lumbar Spine 2 or 3 Views (2024 1:40 PM EDT) Anatomical Region Laterality Modality Spine, L-spine Digital Radiogra phy Impressions 2024 2:20 PM EDT No acute osseous findings. L3-L5 posterior fusion without hardware complication. Similar grade 1 anterolisthesis of L4 on L5, which is unchanged between flexion and extension. Minimal retrolisthesis of L2 on L3 and L3 on L4 with extension, both of which reduce with flexion. CRITICAL RESULT: No. COMMUNICATION: Per this written report. By electronically signing this report, I, the attending physician, attest that I have personally reviewed the images/data for the above examination(s) and agree with the final edited report. Drafted by Sunil Cabrera MD on 2024 1:44 PM Final report signed by Ade Avendaño MD on 2024 2:20 PM Narrative 2024 2:20 PM EDT CLINICAL INDICATION: low back pain TECHNIQUE: XR LUMBAR SPINE 2 OR 3 VIEWS COMPARISON: Outside lumbar spine CT without contrast 07/21/2024 Lumbar spine radiographs 06/22/2024 FINDINGS: There are 5 lumbar type vertebral bodies. The L5 vertebral body is poorly visualized due to patient body habitus. No acute fracture. Similar grade 1 anterolisthesis of L4 on L5, which is unchanged between flexion and extension. Minimal retrolisthesis of L2 on L3 and L3 on L4 with extension, both of which reduce with flexion. L3-L5 posterior fusion. No evidence of hardware loosening or failure. Spinal stimulator device is partially imaged. Procedure Note Ade Avendaño MD - 2024 CLINICAL INDICATION: low back pain TECHNIQUE: XR LUMBAR SPINE 2 OR 3 VIEWS COMPARISON: Outside lumbar spine CT without contrast 07/21/2024 Lumbar spine radiographs 06/22/2024 FINDINGS: There are 5 lumbar type vertebral bodies. The L5 vertebral body is poorlyvisualized due to patient body habitus. No acute fracture. Similar grade 1anterolisthesis of L4 on L5, which is unchanged between flexion andextension. Minimal retrolisthesis of L2 on L3 and L3 on L4 with extension,both of which reduce with flexion. L3-L5 posterior fusion. No evidence ofhardware loosening or failure. Spinal stimulator device is partiallyimaged. IMPRESSION: No acute osseous findings. L3-L5 posterior fusion without hardware complication. Similar grade 1 anterolisthesis of L4 on L5, which is unchanged betweenflexion and extension. Minimal retrolisthesis of L2 on L3 and L3 on L4with extension, both of which reduce with flexion. CRITICAL RESULT: No. COMMUNICATION: Per this written report. By electronically signing this report, I, the attending physician, attestthat I have personally reviewed the images/data for the aboveexamination(s) and agree with the final edited report. Drafted by Sunil Cabrera MD on 2024 1:44 PM Final report signed by Ade Avendaño MD on 2024 2:20 PM us Giulia Briggs PA IMG XR PROCEDURES Final Result * Hepatitis C Antibody - ED (04/25/2024 10:55 PM EDT) Hepatitis C Antibody Negative Negative 04/25/2024 11:46 PM EDT [facility] Blood Venous blood specimen / Unknown Venipuncture / Unknown 04/25/2024 10:55 PM EDT 04/25/2024 11:05 PM EDT us Yelena Mcqueen MD LAB BLOOD ORDERABLES Final Res ult Performing Organization Address City/State/[facility] Co de Phone Number [facility] [address] [place] [address] from Last 3 Months or Most Recently Relevant to Health Maintenance Insurance MEDICARE [facility] Advance Directives * Full Code (Latest Code Status on File) Date Activated Date Inactivated Comments 05/12/2024 1:27 PM 05/27/2024 3:13 PM Question Answer Comments Patient has decision-making capacity? Yes * Full Code Date Activated Date Inactivated Comments 03/18/2024 6:27 PM 03/27/2024 5:34 PM Question Answer Comments Patient has decision-making capacity? Yes * Full Code Date Activated Date Inactivated Comments 10/16/2021 7:57 AM 10/18/2021 4:45 PM Question Answer Comments Patient has decision-making capacity? Yes * Full Code Date Activated Date Inactivated Comments 07/31/2021 10:09 AM 08/03/2021 5:22 PM Question Answer Comments Patient has decision-making capacity? Yes Care Teams Master Brewer Relationship Specialty Start Date End Date Marc Rodriguez MD [address] [place] [address] PCP - General 12/14/20 Edgardo Zuñiga MD [address] [place] [address] Surgeon Neurosurgery 03/04/21 Giulia Briggs PA [address] [place] [address] Physician Carburizing Furnace Operator Neurosurgery 07/03/21 Edgardo Zuñiga MD [address] [place] [address] Surgeon Neurosurgery 09/16/21 Esther Mathew PA [address] [place] [address] Physician Carburizing Furnace Operator Neurology 11/19/22
--- OUTSIDE RECORDS SUMMARY | 2025-01-23 08:39 | XMS_ITS | Encounter Summary ---
Author Organization [email or web address] Address [address] [place] [address] Care Team Providers Care Conservation Specialist Name Role Phone Unavailable Primary Care Provider Unavailabl e Encounter Details Date Type Department Care Team (Late st Contact Info) Description 07/29/2019 Transcribed Document [facility] [place] [facility] [place] [address] ProviderSonia MD [address] [place], [place] [id number] Social History Tobacco Use Types Packs/Day Years Used Date Smoking Tobacco: Never Assessed Comments Unknown Sex and Gender Information Value Date Recorded Sex Assigned at Not on file Legal Sex Female 1:42 PM CDT Gender Identity Not on file Sexual Orientation Not on file documented as of this encounter Miscellaneous Notes * Cerner Conversion Note - Historical ProviderMD - 07/29/2019 2:00 PM WASTE CHOPPER Pain Assessment Entered On: 07/29/2019 17:45 EST Performed On: 07/29/2019 17:53 EST by Trina Adorno RN Intervention Information: acetaminophen Performed by Trina Adorno RN on 07/29/2019 16:53:00 EST acetaminophen,1000mg Oral Pain Assessment Pain Assessment : Follow-up assessment Pain Scale Goal : 5 Pain Improved by Intervention : Yes Trina Adorno RN - 07/29/2019 17:45 EST documented in this encounter Plan of Treatment Not on file documented as of this encounter Visit Diagnoses Not on filedocumented in this encounter
--- OUTSIDE RECORDS SUMMARY | 2025-01-23 08:39 | XMS_ITS | Encounter Summary ---
Author Organization [employer] Address [address] [place] [address] Care Team Providers Care Rotary Kiln Operator Name Role Phone Unavailable Primary Care Provider Unavailabl e Encounter Details Date Type Department Care Team (Late st Contact Info) Description 07/27/2019 Transcribed Document [facility] Family [place] [address] ProviderSonia MD [address] [place], [place] [address] Social History Tobacco Use Types Packs/Day Years Used Date Smoking Tobacco: Never Assessed Comments Unknown Sex and Gender Information Value Date Recorded Sex Assigned at Not on file Legal Sex Female 1:42 PM CDT Gender Identity Not on file Sexual Orientation Not on file documented as of this encounter Miscellaneous Notes * Cerner Conversion Note - Historical ProviderMD - 07/27/2019 5:00 AM BRUSHER Chart Check - Review Order Profile Entered On: 07/27/2019 6:57 EST Performed On: 07/27/2019 5:00 EST by Barrington Roberts RN Chart Check Powerplans Initiated/Discontinued as Appropriate : Yes All Active Orders Reviewed : Yes Barrington Roberts RN - 07/27/2019 6:57 EST Electronically signed by Raman [facility] Conversion Child Care Cerner at 11/19/2022 8:45 PM CDT documented in this encounter Plan of Treatment Not on file documented as of this encounter Visit Diagnoses Not on filedocumented in this encounter
--- OUTSIDE RECORDS SUMMARY | 2025-01-23 08:39 | XMS_ITS | Encounter Summary ---
Author Organization [employer] Address [address] [place] [address] Care Team Providers Care Premium Auditor Name Role Phone Unavailable Primary Care Provider Unavailabl e Encounter Details Date Type Department Care Team (Late st Contact Info) Description 07/29/2019 Transcribed Document [facility] Family Medicine [facility] [place] [address] ProviderSonia MD [address] [place], [place] [id number] Social History Tobacco Use Types Packs/Day Years Used Date Smoking Tobacco: Never Assessed Comments Unknown Sex and Gender Information Value Date Recorded Sex Assigned at Not on file Legal Sex Female 1:42 PM CDT Gender Identity Not on file Sexual Orientation Not on file documented as of this encounter Miscellaneous Notes * Cerner Conversion Note - Historical ProviderMD - 07/29/2019 6:00 AM ALLERGIST/IMMUNOLOGIST Pain Assessment Entered On: 07/29/2019 8:36 EST Performed On: 07/29/2019 7:12 EST by Trina Adorno RN Intervention Information: acetaminophen Performed by Myrna Deleon RN on 07/29/2019 06:12:00 EST acetaminophen,1000mg Oral Pain Assessment Pain Assessment : Follow-up assessment Pain Scale Goal : 5 Pain Improved by Intervention : Yes Trina Adorno RN - 07/29/2019 8:36 EST documented in this encounter Plan of Treatment Not on file documented as of this encounter Visit Diagnoses Not on filedocumented in this encounter
--- OUTSIDE RECORDS SUMMARY | 2025-01-23 08:39 | XMS_ITS | Encounter Summary ---
Author Organization Healthcare Address [address] [place] [address] Care Team Providers Care Transfer Man Name Role Phone Marc Rodriguez MD Primary Care Provider [phone] Edgardo Zuñiga MD Unavailable [phone] Giulia Briggs Unavailable [phone] Edgardo Zuñiga MD Unavailable [phone] Esther Mathew Unavailable [phone] Reason for Visit * Reason Onset Date Comments HCN Status Update Call #2 11/11/2024 Encounter Details Date Type Department Care Team (Late st Contact Info) Description 11/11/2024 Telephone Physical Medicine & Rehabilitation Clinic at [facility] [address] [place] [address] Suzan Galindo DO [address] [place] [address] HCN Status Update Call #2 Social History Tobacco Use Types Packs/Day Years [...] place to sleep or slept in a detention (including now)? No 05/13/2024 PHQ-9 Answer Date [...] encounter Miscellaneous Notes * Telephone Encounter - Suzan Galindo DO - 11/16/2024 11:52 AM EDT Ok thanks. * Telephone Encounter - Preeti Delacruz - 11/16/2024 8:27 AM EDT I called pt and let her know she will get back to us after she talked to her pain management doctor. * Telephone Encounter - Suzan Galindo DO - 11/15/2024 3:37 PM EDT She needs to talk to her pain management doctor to see if they can adjust her pump for pain and consider adding baclofen for the spasms, only other option is to increase her oral baclofen but unsure she can tolerate this. I have no other options. * Telephone Encounter - Preeti Delacruz - 11/15/2024 3:16 PM EDT I called pt she said she is still having pain and spasm. Pt wants to know if the plan is to get herin sooner still. * Telephone Encounter - Sandra Vergara - 11/15/2024 1:57 PM EDT Status Update Call #2 2nd call regarding the status of the initial request. Best contact number: [phone] (mobile) Optimal time of day to reach caller: ANYTIME Additional comments/information from caller: Patient requesting return call as soon as possible, she states it is regarding worsening pain and spasms Note: Please do not reply to this message. Follow-up communication and further actions as a result of this message need to be communicated with the patient directly, if the patient is not active onMyChart. If the patient is active on MyChart, they will receive notification of the communication/outcome via Phone Warriort. * Telephone Encounter - Angelika Ceballos - 11/14/2024 10:30 AM EDT Status Update Call #1 1st call regarding the status of the initial request. Best contact number: [phone] (mobile) Optimal time of day to reach caller: ANYTIME Additional comments/information from caller: Patient is returning a call. Note: Please do not reply to this message. Follow-up communication and further actions as a result of this message need to be communicated with the patient directly, if the patient is not active onMyChart. If the patient is active on MyChart, they will receive notification of the communication/outcome via MyChart. * Telephone Encounter - Preeti Delacruz - 11/11/2024 1:35 PM EDT Called pt back and let her know thank you * Telephone Encounter - Preeti Delacruz - 11/11/2024 1:20 PM EDT It was received yesterday. I placed it on your desk if I am not wrong. * Telephone Encounter - Ollie Duarte - 11/11/2024 12:56 PM EDT Clinical Concern/Question Reason for Call: Laura patient is asking if we received her labwork results. Best contact number: [phone] (mobile) Optimal time of day to reach caller: ANYTIME Additional comments/information from caller: None Note: Please do not reply to this message. Follow-up communication and further actions as a result of this message need to be communicated with the patient directly, if the patient is not active onMyChart. If the patient is active on MyChart, they will receive notification of the communication/outcome via MyChart. documented in this encounter Plan of Treatment Upcoming Encounters Date Type Department Care Team (Late st Contact Info) Description 02/21/2025 11:00 AM EDT Office Visit [facility] [address] [place] [address] Dorys Sommers, DO [address] [place] [address] 03/08/2025 1:40 PM EDT Office Visit [facility] Orthopaedic Surgery & Sports Medicine [address] [place] [address] Edgardo Zuñiga MD [address] [place] [address] 03/09/2025 1:20 PM EDT Office Visit [facility] [address] [place] [address] Tony Galindoa, DO [address] [place] [address] documented as of this encounter [...] documented as of this encounter Care Teams Transfer Man Relationship Specialty Start Date End Date Marc Rodriguez MD [address] [place], [place] [id number] PCP - General 12/14/20 Edgardo Zuñiga MD [address] [place] [address] Surgeon Neurosurgery 03/04/21 Giulia Briggs PA [address] [place] [address] Physician Wood Products Manufacturer Neurosurgery 07/03/21 Edgardo Zuñiga MD [address] [place] [address] Surgeon Neurosurgery 09/16/21 Esther Mathew PA [address] [place] [address] Physician Wood Products Manufacturer Neurology 11/19/22 documented as of this encounter
--- OUTSIDE RECORDS SUMMARY | 2025-01-23 08:39 | XMS_ITS | Encounter Summary ---
Author Organization [employer] Address [address] [place] [address] Care Team Providers Care Pleat Taper Name Role Phone Unavailable Primary Care Provider Unavailabl e Encounter Details Date Type Department Care Team (Late st Contact Info) Description 07/28/2019 Transcribed Document [facility] Family Medicine [facility] [place] [address] ProviderSonia MD [address] [place] [id number] Social History Tobacco Use Types Packs/Day Years Used Date Smoking Tobacco: Never Assessed Comments Unknown Sex and Gender Information Value Date Recorded Sex Assigned at Not on file Legal Sex Female 1:42 PM CDT Gender Identity Not on file Sexual Orientation Not on file documented as of this encounter Miscellaneous Notes * Cerner Conversion Note - Historical ProviderMD - 07/28/2019 2:44 PM SENIOR PATROL AGENT On Going Discharge Planning Entered On: 07/28/2019 14:45 EST Performed On: 07/28/2019 14:44 EST by REMY LOPEZ, Care Management-Supervisor Poultry Hatchery Care Management Progress Note Discharge Arrangements : Patient Post-Acute Information Patient Name: SANDIE FRANK Gender: Female : 51 Age: 63 Years No Post-Acute Placement(s) Listed No Post-Acute Service(s) Listed No Cur[place] Referral(s) Listed Discharge Options Discussed with Patient : Short term rehabilitation REMY LOPEZ, Care Management-Supervisor Poultry Hatchery - 07/28/2019 14:44 EST Narrative Progress Note Narrative Progress Note : Per Romina Lundy, they are unable to accept due to cost of medications. awaiting contact from [facility] Historical Progress Note : Received call from Catalina that at [facility] states the pt is declined for acute rehab and they are apprehensive about her coming to SRU due to her physical level of care. CM relayed this to the pt and spouse and they agree to have the pt referred to the following: [facility], [facility] and [place]. CM will fu for possible offers. Med list sent to [place] for review. NICHOLAS HOGUE, RN-Sand And Gravel Plant Operator - 07/26/19 15:40:13 JAS sent text to Catalina with [facility] this am requesting update on bed availability. She has the pt being reviewed by their physician. CM set ambulance tentatively for tomorrow at 1400. Awaiting word from [facility]. NICHOLAS HOGUE, RN-Sand And Gravel Plant Operator - 07/25/19 15:17:05 JAS sent text to Catalina with [facility] this am requesting update on bed availability. She has the pt being reviewed by their physician. CM set ambulance tentatively for tomorrow at 1400. Awaiting word from [facility]. CM updated pt and family. NICHOLAS HOGUE, RN-Sand And Gravel Plant Operator - 07/25/19 15:24:48 07/24 met with mrs Frank and she is awake and les shaky today... States she wants to go to rehab for getting strength and balance .. Await [facility] evyulissa ,, She 's had her 3 Midnight stay in hospital .... LAMBERT Steele RN-Sand And Gravel Plant Operator - 07/24/19 15:20:00 REMY LOPEZ Care Management-Supervisor Poultry Hatchery - 07/28/2019 14:44 EST Electronically signed by Raman [facility] Conversion Event Lighting Specialist Cerner at 11/19/2022 8:25 PM CDT documented in this encounter Plan of Treatment Not on file documented as of this encounter Visit Diagnoses Not on filedocumented in this encounter
--- OUTSIDE RECORDS SUMMARY | 2025-01-23 08:39 | XMS_ITS | Continuity of Care Document ---
Author Organization [facility] New Address [address] [place] [address] Care Team Providers Care Vise Hand Name Role Phone LEOPOLDO TEJADA Primary Care Provider LEOPOLDO TEJADA Referring Provider Assessment Encounter Date Assessment Date Assessment LastModified by Organization Details LastModified Time 12/23/2024 12/23/2024 This patient is here for adjustment of her intrathecal hydromorphone/ba clofen pain pump. She continues to have some pain and spasms of her legs. She does continue to take her oral baclofen. We did increase her today to 12 mg/day of intrathecal hydromorphone/ba clofen. She is scheduled for refill by [facility] home health refill on January 01. She [...] that time. abux Not available 12/23/2024 12:43:54 Plan of Treatment Reminders Order Date Submit Date Provider Last Modified By Organization Details Last Modified Time Details Appointments Follow Up 2024 10:00A M Sagar Kidd MD Not available Not available Not available Lab None recorded. Referral None recorded. Procedures intrathec al pump adjustmen t (PROC) 2024 025 [email or web address] Not available 12/27/2024 19:18:45 Surgeries None recorded. Imaging None recorded. Medication Orders None recorded. Patient TargetsNo targets recorded. Patient InstructionsNo instructions recorded. Reason for Referral None Reported. Problems Name Problem SNOMED Code Status Onset Date Resolution Date Notes Provider Name and Address Organization Details Recorded Time History of lumbar fusion 3498489471243 6 Active 2023 Sagar Kidd MD [address] [place] [address], [address], [place] [facility] 4 09:30:12 Lumbar post-christopher ctomy syndrome 933454306 Active 2022 Sagar Kidd MD [address] [place] [address], [address], [place] [facility] 3 12:42:22 Lumbar radiculopat hy 721959705 Active 2022 Sagar Kidd MD [address], [address], [place] [facility] 3 12:42:23 Degeneratio n of lumbar interverteb ral disc 82316578 Active 2022 Sagar Kidd MD [address] [place] [address], [address], [place] [facility] 3 12:42:24 Problem Notes None recorded. Procedures Surgical History Date Name Laterality Status Provider Name and Address Organization Details Recorded Time 01/20/20 25 PUMP ADJUSTMENT completed Sagar Kidd MD [address], [address], [place] [facility] 01/19/2025 18:24:49 12/24/19 25 PUMP ADJUSTMENT completed Sagar Kidd MD [address] [place] [address], [address], [place] [facility] 12/23/2024 12:42:44 11/24/19 25 PUMP ADJUSTMENT completed Sagar Kidd MD [address] [place] [address], [address], [place] [facility] 11/23/2024 14:01:17 06/27/20 24 Pump Refill completed Sagar Kidd MD [address], [place], [address], [place] [facility] 06/27/2024 18:29:09 05/12/20 24 Pump Refill completed Sagar Kidd MD [address],[place] [address], [place], [address], [place] [facility] 05/12/2024 22:17:49 12/30/19 24 PUMP ADJUSTMENT completed Sagar Kidd MD [address] [facility],[place] [address], [place], [address], [place] [facility] 12/30/2023 09:48:52 11/12/19 24 PUMP ADJUSTMENT completed Sagar Kidd MD [address] [facility],[address], [address], [place] [facility] 11/12/2023 09:35:32 11/12/19 24 Caudal Epidural Steroid Injection Under Fluoroscopy completed Sagar Kidd MD [address] [facility],[address], [address], [place] [facility] 11/12/2023 09:34:52 10/29/19 24 PUMP ADJUSTMENT completed Sagar Kidd MD [address] [facility],[address], [address], [place] [facility] 10/29/2023 22:42:43 10/23/19 24 PUMP ADJUSTMENT completed Sagar Kidd MD [address], [address], [place] [facility] 10/25/2023 17:41:36 10/15/19 24 Pump Refill completed Sagar Kidd MD [address] [facility],[place] [address], [place], [address], [place] [facility] 10/15/2023 13:13:48 10/07/19 24 PUMP ADJUSTMENT cancelled CHRISTA COREY [place] [facility] 10/05/2023 07:33:42 09/24/19 24 PUMP ADJUSTMENT completed Sagar Kidd MD [address] [address], [place], [address], [place] [facility] 09/24/2023 18:59:17 09/09/19 24 PUMP ADJUSTMENT completed Sagar Kidd MD [address] ,[address] [facility], [place], [address], [place] [facility] 09/09/2023 22:00:08 09/09/19 24 Lumbar MILDRED: Interlaminar completed Sagar Kidd MD [address] [facility],[address] [facility], [place], [address], [place] [facility] 09/09/2023 21:59:32 08/27/19 24 PUMP ADJUSTMENT completed Sagar Kidd MD [address] [facility],[place] [address], [place], [address], [place] [facility] 08/27/2023 10:34:46 07/31/20 PUMP ADJUSTMENT completed Sagar Kidd MD [address] [facility],[place] [address], [place], [address], [place] [facility] 07/31/2023 14:28:40 07/31/20 Diagnostic SI Joint Injection Under Fluoroscopy completed Sagar Kidd MD [address] [facility],[address], [address], [place] [facility] 07/31/2023 14:28:03 07/16/20 Pump Refill completed Sagar Kidd MD [address] [facility],[address], [address], [place] [facility] 07/16/2023 19:03:50 05/26/20 Pump Refill cancelled CHRISTA JACOBSS [place] [facility] 05/19/2023 11:48:31 04/30/20 23 Pump Refill completed Sagar Kidd MD [address] [facility],[place] [address], [place], [address], [place] [facility] 04/30/2023 09:35:06 04/23/20 23 SCS Leads Removal cancelled CHRISTA JACOBSS [place] [facility] 04/17/2023 08:39:13 04/16/20 23 SCS Leads Removal completed Sagar Kidd MD [address] [address], [place], [address], [place] [facility] 04/17/2023 00:35:18 04/10/20 23 SCS Trial completed Sagar Kidd MD [address] [facility] [address], [place], [address], [place] [facility] 04/10/2023 12:39:45 [...] Not available Not available Not available 04/10/2023 00492 1 RxNorm Debby Flowers null, [place] - [facility] 3 08:40:45 3603 Keflex medicatio n Not available Not available Not available 04/10/2023 88375 7 RxNorm Debby Flowers null, [place] [facility] 3 08:40:53 3604 Levaquin medicatio n Not available Not available Not available 04/10/2023 95721 2 RxNorm Debby Lfowers null, [place] [facility] 3 [...] 20 DISPENSE IN 20 ML FOR INTRATHE APT INFUSION 2023 active Not Available Not Available [...] and Address Organization Details Last Updated DateTime 170.18 cm 30.5 kg/m2 96182.5 1 g 78 /min 97 % 97 % 118 mm[Hg] 82 mm[Hg] CHRISTA VIERA - [facility] 08:34:41 Social History Question Answer Notes LastModified by Organizat ion Details LastModified Time Tobacco Smoking Status Never Smoker Debby lopez [place] [facility] 04/10/2023 08:42:26 Do You Have An Advance Directive? Yes Information n ot available 04/10/2023 In The 14 Days Before Symptom Onset, Have You Had Close Contact With A Laboratory-confirm ed COVID-19 While That Case Was Ill? No [email or web address] Information n ot available 04/10/2023 In The 14 Days Before Symptom Onset, Have You Had Close Contact With A Person Who Is Under Investigation For COVID-19 While That Person Was Ill? No [email or web address] Information not available 04/10/2023 Have You Been To An Area Known To Be High Risk For COVID-19? No [email or web address] Information not available 04/10/2023 Do You Have A Medical Power Of Wound Treatment Rn? No [email or web address] Information not available 04/10/2023 Sex: Female Functional Status Question Answer Note LastModified by Organizat ion Details LastModified Time Do you use any illicit or recreational drugs? No [email or web address] Information not available 04/10/2023 Do you or have you ever used any other forms of tobacco or nicotine? No [email or web address] Information not available 04/10/2023 What is your level of alcohol consumption? Occasional [email or web address] Information not available 04/10/2023 Are you currently employed? No [email or web address] Information not available 04/10/2023 Mental Status None recorded. Family History Nothing Reported. Medical History Condition Response Coronary Artery Disease N Gout N Hernia N Head Trauma/Injury N Thyroid Problems Y Depression Y COPD N Anemia Y Heart Attack ([place]) N Ulcers N Diabetes N Anxiety Disorder [...] SNOMED-CT Code Diagnosis ICD10 Code Diagnosis Note [id number] Sagar Kidd MD [address] [place] [address] 11/23/2024 10:47:55 11/23/2024 11:38:12 Lumbar post-laminectomy syndrome 479245211 M96.1 Lumbar radiculopathy 128 M54.16 Degenerati on of lumbar intervertebral disc 61197360 M51.362 History of lumbar fusion 6949257434 9106 Z98.1 Long-term current use of opiate analgesic drug 5924007517 76058 Z79.891 Opioid dependence 116199 00 F11.20 [id number] Sagar Kidd MD [address] [place] [address] 12/23/2024 08:32:54 12/23/2024 09:43:59 Lumbar post-laminectomy syndrome 320605251 M96.1 Lumbar radiculopathy 128 M54.16 Degenerati on of lumbar intervertebral disc 97117775 M51.362 Spasm 73752242 M62.838 Health Concerns Section Related Observation LastModified by Organization Detai ls LastModified Time None Recorded Concern Status LastModified by Organization Details LastModified Time None Recorded Payers Encounter Date Sequence Insurance Name Policy Number Policy Gibbs Covered Member ID Gibbs Member ID Guarantor Name 12/23/2024 1 MEDICARE-[employer] (MEDICARE) Sandie Shelton Miller [id number] Sandie Zac 12/23/2024 2 [place]: [place] [id number] Jose Frank [id number] Sandie Frank Notes Date Note Type Note Provider Name and Address Organization Details Recorded Time 12/23/2024 text/html Back PainReporte d bypatient.Location: lumbar;pain [...] Prior Imaging:MRI Sagar Kidd MD [address] [address], [place], [address], [facility] 12/23/2024 12:45:29 OBGyn Episode No OBEpisode recorded.
--- OUTSIDE RECORDS SUMMARY | 2025-01-23 08:40 | XMS_ITS | Encounter Summary ---
Author Organization [employer] Address [address] [place] [address] Care Team Providers Care Track Announcer Name Role Phone Unavailable Primary Care Provider Unavailabl e Encounter Details Date Type Department Care Team (Late st Contact Info) Description 07/31/2019 Transcribed Document [facility] [place] [facility] [place] [address] ProviderSonia MD [address] [place], [place] [phone] Social History Tobacco Use Types Packs/Day Years Used Date Smoking Tobacco: Never Assessed Comments Unknown Sex and Gender Information Value Date Recorded Sex Assigned at Not on file Legal Sex Female 1:42 PM CDT Gender Identity Not on file Sexual Orientation Not on file documented as of this encounter Miscellaneous Notes * Cerner Conversion Note - Historical ProviderMD - 07/31/2019 5:00 PM SOFTWARE APPLICATIONS SPECIALIST Chart Check - Review Order Profile Entered On: 07/31/2019 16:18 EST Performed On: 07/31/2019 17:00 EST by Trina Adorno RN Chart Check Powerplans Initiated/Discontinued as Appropriate : Yes All Active Orders Reviewed : Yes Trina Adorno, NICOLASA - 07/31/2019 16:18 EST Electronically signed by Raman [facility] Conversion Manager Traffic Cerner at 11/19/2022 8:24 PM CDT documented in this encounter Plan of Treatment Not on file documented as of this encounter Visit Diagnoses Not on filedocumented in this encounter
--- OUTSIDE RECORDS SUMMARY | 2025-01-23 08:40 | XMS_ITS | Encounter Summary ---
Author Organization [employer] Address [address] [place] [address] Care Team Providers Care Director Visual Name Role Phone Unavailable Primary Care Provider Unavailabl e Encounter Details Date Type Department Care Team (Late st Contact Info) Description 07/29/2019 Transcribed Document [facility] [place] [facility] [place] [address] ProviderSonia MD [address] [place] [phone] Social History Tobacco Use Types Packs/Day Years Used Date Smoking Tobacco: Never Assessed Comments Unknown Sex and Gender Information Value Date Recorded Sex Assigned at Not on file Legal Sex Female 1:42 PM CDT Gender Identity Not on file Sexual Orientation Not on file documented as of this encounter Miscellaneous Notes * Cerner Conversion Note - Historical ProviderMD - 07/29/2019 11:45 PM HEAD OF PARTNER DEVELOPMENT Rapid Response Team Documentation Entered On: 07/30/2019 0:10 EST Performed On: 07/29/2019 23:45 EST by Liyah Dobbins RN Rapid Response Event Time Rapid Response Team Called : 07/29/2019 23:45 EST Rapid Response Team Arrival Time : 07/29/2019 23:50 EST Rapid Response Team Event End Time : 07/30/2019 0:08 EST Rapid Response Event Intiated By : Hospital Staff Rapid Response Team Initiation Reason : Peripheral IV start Rapid Response Event Location Type : Other: 327 Rapid Response Team Initiation Reason Details : peripheral IV start Rapid Response Admission Diagnosis : 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 Rapid Response Medical Background : Adrenal insufficiency (Medical) Aortic valve stenosis (Medical) Arthritis (Medical) Asthma (Medical) At risk for sleep apnea (Medical) B12 deficiency (Medical) Cataracts, both eyes (Medical) Chronic kidney disease (Medical) Dementia (Medical) GERD (Medical) Glaucoma (Medical) Hypothyroidism (Medical) Osteoporosis (Medical) Pneumonia (Medical) Seasonal allergies (Medical) Vitamin D deficiency (Medical) chronic back pain (Medical) chronic diarrhea (Medical) chronic hydrocort use (Medical) depression (Medical) fibromyalgia (Medical) high blood pressure (Medical) high cholesterol (Medical) hx cataract surgery bilateral (Medical) hx colon resection secondary decreased function (Medical) hx. chest pain (Medical) hx. frequent UTIs (Medical) kidney stone right kidney current and hx (Medical) migraine headaches (Medical) peripheral neuropathy (Medical) restless leg syndrome (Medical) rheumatoid arthritis (Medical) uses Renexa (Medical) Rapid Response Allergies : Substance Category Reactions Severity cephalexin Drug cephalexin Drug clindamycin Drug clindamycin Drug clindamycin Drug codeine Drug erythromycin Drug erythromycin Drug Lyrica Drug Confusion meropenem Drug Rapid Response Recent Vital Signs : 07/29/2019 17:23 Systolic Blood Pressure 133 07/29/2019 17:23 Diastolic Blood Pressure 62 07/29/2019 21:14 Heart Rate Monitored 66 07/29/2019 21:57 Heart Rate, Apical 70 07/29/2019 21:14 Respiratory Rate 16 07/29/2019 17:23 Temperature, Fahrenheit 97.9 07/29/2019 21:14 Oxygen Saturation 94 Rapid Response Recent Lab Results : 07/29/2019 03:36 Sodium Level 144 (136-146) 07/29/2019 03:36 Potassium Level 3.9 (3.5-5.1) 07/29/2019 03:36 Calcium Level 9.3 (8.5-10.1) 07/23/2019 23:50 Glucose POC2 99 (70-110) 07/29/2019 03:36 Chloride Level 111 (102-112) 07/29/2019 03:36 Carbon Dioxide Level 28 (21-32) 07/29/2019 03:36 Blood Urea Nitrogen 11 (7-22) 07/29/2019 03:36 Creatinine Level 1.00 (0.55-1.02) 07/29/2019 03:36 Hgb LOW 9.5 (11.2-15.7) 07/29/2019 03:36 Hct LOW 29.9 (34.1-44.9) 07/29/2019 03:36 RBC LOW 3.08 (3.93-5.22) 07/29/2019 03:36 WBC 5.6 (3.9-10.0) 07/29/2019 03:36 Platelet Count 179 (163-369) Weight/BMI : Clinical Weight/BMI CLINICALWEIGHT: 104.55 kg (07/22/19 11:57:00) CLINICALWEIGHT: 104.55 kg (07/22/19 06:29:00) CLINICALWEIGHT: 104.55 kg (07/08/19 09:48:00) Body Mass Index: 36.1 kg/m2 High (07/22/19 11:57:00) Body Mass Index: 36.1 kg/m2 High (07/22/19 06:29:00) Body Mass Index: 36.1 kg/m2 High (07/08/19 09:48:00) Rapid Response Team Event Interventions : Other: IV start Rapid Response Team Recommendation/Response : Peripheral IV inserted Patient Condition at End of Event : No S/S of Acute Distress Patient Disposition Post Event : No change in location/level of care Rapid Response Director Visual #1 : Liyah Dobbins, RN Liyah Dobbins, RN - 07/30/2019 0:08 EST Electronically signed by [facility] Conversion Production Support Consultant Cerner at 11/19/2022 8:42 PM CDT documented in this encounter Plan of Treatment Not on file documented as of this encounter Visit Diagnoses Not on filedocumented in this encounter
--- OUTSIDE RECORDS SUMMARY | 2025-01-23 08:40 | XMS_ITS | Encounter Summary ---
Author Organization [employer] Address [address] [place] [address] Care Team Providers Care Robotics Systems Engineer Name Role Phone Unavailable Primary Care Provider Unavailabl e Encounter Details Date Type Department Care Team (Late st Contact Info) Description 07/30/2019 Transcribed Document [facility] [place] [facility] [place] [address] ProviderSonia MD [address] [place] [phone] Social History Tobacco Use Types Packs/Day Years Used Date Smoking Tobacco: Never Assessed Comments Unknown Sex and Gender Information Value Date Recorded Sex Assigned at Not on file Legal Sex Female 1:42 PM CDT Gender Identity Not on file Sexual Orientation Not on file documented as of this encounter Miscellaneous Notes * Cerner Conversion Note - Historical ProviderMD - 07/30/2019 10:[address] SUPERVISOR Pain Assessment Entered On: 07/31/2019 5:26 EST Performed On: 07/30/2019 23:28 EST by Cathie Lundy RN Intervention Information: acetaminophen Performed by Cathie Lundy RN on 07/30/2019 22:28:00 EST acetaminophen,1000mg Oral Pain Assessment Pain Assessment : Follow-up assessment Pain Scale Goal : 5 Pain Scale Used : 0-10 Scale Pain Improved by Intervention : Yes Cathie Lundy RN - 07/31/2019 5:25 EST Pain Scale Intensity : 2 Cathie Lundy RN - 07/31/2019 5:25 EST Image 4 - Images currently included in the form version of this document have not been included in the text rendition version of the form. Electronically signed by Ivelisse Camargo Conversion Web Applications Administrator Fela at 11/19/2022 8:38 PM CDT documented in this encounter Plan of Treatment Not on file documented as of this encounter Visit Diagnoses Not on filedocumented in this encounter
--- OUTSIDE RECORDS SUMMARY | 2025-01-23 08:40 | XMS_ITS | Encounter Summary ---
Author Organization [employer] Address [address] [place] [address] Care Team Providers Care Abrasives Sales Representative Name Role Phone Unavailable Primary Care Provider Unavailabl e Encounter Details Date Type Department Care Team (Late st Contact Info) Description 07/30/2019 Transcribed Document [facility] [place] [facility] [place] [address] ProviderSonia MD [address] [place] [phone] Social History Tobacco Use Types Packs/Day Years Used Date Smoking Tobacco: Never Assessed Comments Unknown Sex and Gender Information Value Date Recorded Sex Assigned at Not on file Legal Sex Female 1:42 PM CDT Gender Identity Not on file Sexual Orientation Not on file documented as of this encounter Miscellaneous Notes * Cerner Conversion Note - Historical ProviderMD - 07/30/2019 11:55 AM INTAKE COORDINATOR On Going Discharge Planning Entered On: 07/30/2019 11:55 EST Performed On: 07/30/2019 11:55 EST by REMY LOPEZ, Care Management-Patient Centered Care Specialist Care Management Progress Note Discharge Arrangements : Patient Post-Acute Information Patient Name: SANDIE FRANK Gender: Female : 51 Age: 63 Years No Post-Acute Placement(s) Listed No Post-Acute Service(s) Listed No [place] Referral(s) Listed Discharge Options Discussed with Patient : Short term rehabilitation REMY LOPEZ, Care Management-Patient Centered Care Specialist - 07/30/2019 11:55 EST Narrative Progress Note Narrative Progress Note : UPDATED CLINICAL SENT VIA [facility], Historical Progress Note : [facility] has not responded, message left, lengthy discussion with pt and spouse regarding branching out to broaden search. also to look at [facility] swing Bed, they are agreeable to only 4 or 5 star rated facilities as presented in sury [place]. Spouse indicated we are trying to get [...] Referrals, Case Management will continue to follow. REMY LOPEZ, Care Management-Patient Centered Care Specialist - 07/29/19 12:08:26 Per Romina at [facility], they are unable to accept due to cost of medications. awaiting contact from [facility] REMY LOPEZ Care Management-Patient Centered Care Specialist - 07/28/19 14:45:58 Received call from Catalina that at [facility] states the pt is declined for acute rehab and they are apprehensive about her coming to [facility] due to her physical level of care. CM relayed this to the pt and spouse and they agree to have the pt referred to the following: [facility], [facility] and [facility]. CM will fu for possible offers. Med list sent to [facility] for review. NICHOLAS HOGUE, RN-Tennis Centre Manager - 07/26/19 15:40:13 JAS sent text to Catalina with [facility] this am requesting update on bed availability. She has the pt being reviewed by their physician. CM set ambulance tentatively for tomorrow at 1400. Awaiting word from [facility]. NICHOLAS HOGUE, RN-Tennis Centre Manager - 07/25/19 15:17:05 JAS sent text to Catalina with [facility] this am requesting update on bed availability. She has the pt being reviewed by their physician. JAS set ambulance tentatively for tomorrow at 1400. Awaiting word from [facility]. JAS updated pt and family. NICHOLAS HOGUE, RN-Tennis Centre Manager - 07/25/19 15:24:48 07/24 [address] mrs Frank and she is awake and les shaky today... States she wants to go to rehab for getting strength and balance .. Await JUAN garsia ,, She 's had her 3 Midnight stay in hospital .... LAMBERT Steele, RN-Tennis Centre Manager - 07/24/19 15:20:00 REMY LOPEZ, Care Management-Patient Centered Care Specialist - 07/30/2019 11:55 EST Electronically signed by Raman [facility] Conversion Director Of Group Sales Cerner at 11/19/2022 8:36 PM CDT documented in this encounter Plan of Treatment Not on file documented as of this encounter Visit Diagnoses Not on filedocumented in this encounter
--- OUTSIDE RECORDS SUMMARY | 2025-01-23 08:40 | XMS_ITS | Encounter Summary ---
Author Organization [employer] Address [address] [place] [address] Care Team Providers Care Portfolio Consultant Name Role Phone Unavailable Primary Care Provider Unavailabl e Encounter Details Date Type Department Care Team (Late st Contact Info) Description 07/30/2019 Transcribed Document [facility] [place] [facility] [place] [address] ProviderSonia MD [address] [place], [place] [phone] Social History Tobacco Use Types Packs/Day Years Used Date Smoking Tobacco: Never Assessed Comments Unknown Sex and Gender Information Value Date Recorded Sex Assigned at Not on file Legal Sex Female 1:42 PM CDT Gender Identity Not on file Sexual Orientation Not on file documented as of this encounter Miscellaneous Notes * Cerner Conversion Note - Historical ProviderMD - 07/30/2019 2:00 PM CORING MACHINE OPERATOR Pain Assessment Entered On: 07/30/2019 20:49 EST Performed On: 07/30/2019 14:43 EST by Jennifer Coleman RN Intervention Information: acetaminophen Performed by Jennifer Coleman RN on 07/30/2019 13:43:00 EST acetaminophen,1000mg Oral Pain Assessment Pain Assessment : Follow-up assessment Pain Scale Goal : 5 Pain Scale Used : 0-10 Scale Jennifer Coleman RN - 07/30/2019 20:47 EST Pain Scale Intensity : 4 Jennifer Coleman RN - 07/30/2019 20:47 EST Image 4 - Images currently included in the form version of this document have not been included in the text rendition version of the form. documented in this encounter Plan of Treatment Not on file documented as of this encounter Visit Diagnoses Not on filedocumented in this encounter
--- OUTSIDE RECORDS SUMMARY | 2025-01-23 08:40 | XMS_ITS | Encounter Summary ---
Author Organization [employer] Address [address] [place] [address] Care Team Providers Care Operations Support Analyst Name Role Phone Unavailable Primary Care Provider Unavailabl e Encounter Details Date Type Department Care Team (Late st Contact Info) Description 07/29/2019 Transcribed Document [facility] [place] [address] ProviderSonia MD [address] [place], [place] [phone] Social History Tobacco Use Types Packs/Day Years Used Date Smoking Tobacco: Never Assessed Comments Unknown Sex and Gender Information Value Date Recorded Sex Assigned at Not on file Legal Sex Female 1:42 PM CDT Gender Identity Not on file Sexual Orientation Not on file documented as of this encounter Miscellaneous Notes * Cerner Conversion Note - Historical ProviderMD - 07/29/2019 2:00 AM KNIFE EDGER Regional Ehs Manager Details Entered On: 07/29/2019 3:31 EST Performed On: 07/29/2019 2:00 EST by Myrna Deleon RN Order [...] Line : No Myrna Deleon RN - 07/29/2019 3:31 EST documented in this encounter Plan of Treatment Not on file documented as of this encounter Visit Diagnoses Not on filedocumented in this encounter
--- OUTSIDE RECORDS SUMMARY | 2025-01-23 08:40 | XMS_ITS | Encounter Summary ---
Author Organization [employer] Address [address] [place] [address] Care Team Providers Care Lawnmower Repair Mechanic Name Role Phone Unavailable Primary Care Provider Unavailabl e Encounter Details Date Type Department Care Team (Late st Contact Info) Description 07/30/2019 Transcribed Document [facility] [place] [facility] [place] [address] ProviderSonia MD [address] [place] [phone] Social History Tobacco Use Types Packs/Day Years Used Date Smoking Tobacco: Never Assessed Comments Unknown Sex and Gender Information Value Date Recorded Sex Assigned at Not on file Legal Sex Female 1:42 PM CDT Gender Identity Not on file Sexual Orientation Not on file documented as of this encounter Miscellaneous Notes * Cerner Conversion Note - Historical ProviderMD - 07/30/2019 6:00 AM SECURITY INTERN Pain Assessment Entered On: 07/30/2019 20:46 EST Performed On: 07/30/2019 7:45 EST by Jennifer Coleman RN Intervention Information: acetaminophen Performed by Myrna Deleon RN on 07/30/2019 06:45:00 EST acetaminophen,1000mg Oral Pain Assessment Pain Assessment : Follow-up assessment Pain Scale Goal : 5 Pain Scale Used : 0-10 Scale Jennifer Coleman RN - 07/30/2019 20:46 EST Pain Scale Intensity : 4 Jennifer Coleman RN - 07/30/2019 20:46 EST Image 4 - Images currently included in the form version of this document have not been included in the text rendition version of the form. documented in this encounter Plan of Treatment Not on file documented as of this encounter Visit Diagnoses Not on filedocumented in this encounter
--- OUTSIDE RECORDS SUMMARY | 2025-01-23 08:40 | XMS_ITS | Encounter Summary ---
Author Organization [employer] Address [address] [place] [address] Care Team Providers Care Rolling Machine Operator Name Role Phone Unavailable Primary Care Provider Unavailabl e Encounter Details Date Type Department Care Team (Late st Contact Info) Description 07/28/2019 Transcribed Document [facility] [address] [place] [address] Travis Robles MD [address] [place], [place] [id number] Social History Tobacco Use Types Packs/Day Years Used Date Smoking Tobacco: Never Assessed Comments Unknown Sex and Gender Information Value Date Recorded Sex Assigned at Not on file Legal Sex Female 1:42 PM CDT Gender Identity Not on file Sexual Orientation Not on file documented as of this encounter Miscellaneous Notes * Cerner Conversion Note - Travis Robles MD - 07/28/2019 11:50 AM EST Patient: SANDIE FRANK Age: 63 years Sex: Female : 1955 Associated Diagnoses: None Author: TRAVIS ROBLES MD-INT Subjective Chief complaint. Tuesday, July 23, 2019. No fevers or chills. No shortness of breath coughing wheezing. She has a right hip pain postoperatively and she's working with physical therapy with the , nurse, casework specialist all the bedside. She look like she is about to fallout ofthe bed. The patient's was asking about taking her home. He wanted to know if Dr. Patrick Knutson M.D. with orthopedic surgery actually goes to see patients at the [facility] That he does not go to the [facility] although 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 Physical therapy strongly agreed that he needs to go to inpatient rehabilitation either [facility] are at the [facility]. No fevers or chills. No nausea vomiting. [...] She is still agreeable to going to retirement facility. Patient's nurse and the patient's casework specialist who saw her upstairs saw her again [...] at the bedside as well as the casework specialist. They're looking at placement options. Apparently wanted facilities turn her down because of Lunesta apparently it's expensive medication and then there is a inhaler that she was getting that was expensive. I told her that we could probably find more affordable alternatives at least while she is in the retirement facility if necessary. Saturday, July 27, 2019. [...] her baseline but I suspect it's Precose. July. No fevers or chills this morning. Super pleasant nice lady she states her pain started a little bit better with that pain at 5 / 10. No nausea vomiting. No diarrhea constipation. Nurses at the bedside but patient's is not at the bedside. Awaiting for placement options. I told the nurse from my standpoint she can go whenever she gets a rehabilitation bed. Review of Systems Constitutional: Weakness, Decreased activity, [...] list: Medical Adrenal insufficiency / SNOMED CT 8952745293 / Confirmed Aortic valve stenosis / SNOMED CT 484916031 / Confirmed Arthritis / SNOMED CT 9408753 / Confirmed Asthma / SNOMED CT 535063836 / Confirmed At risk for sleep apnea / IMO 52903202 / Confirmed Cataracts, both eyes / SNOMED CT 764441643 / Confirmed chronic back pain / SNOMED CT 185565472 / Confirmed chronic diarrhea / SNOMED CT 851477583 / Confirmed Chronic kidney disease / SNOMED CT 4231122032 / Confirmed B12 deficiency / SNOMED CT 908089854 / Confirmed Dementia / SNOMED CT 03879563 / Confirmed depression / SNOMED CT 69550368 / Confirmed uses Renexa / SNOMED CT 5212024 / Confirmed chronic hydrocort use / SNOMED CT 7360838 / Confirmed peripheral neuropathy / SNOMED CT 08539334 / Confirmed GERD / SNOMED CT 041034266 / Confirmed fibromyalgia / SNOMED CT 53451543 / Confirmed Glaucoma / SNOMED CT 21136130 / Confirmed migraine headaches / SNOMED CT 514872357 / Confirmed hx cataract surgery bilateral / SNOMED CT 3025867168 / Confirmed hx. chest pain / SNOMED CT 6491197230 / Confirmed hx colon resection secondary decreased function / SNOMED CT 7399644605 / Confirmed hx. frequent UTIs / SNOMED CT 4371594930 / Confirmed high cholesterol / SNOMED CT 57032570 / Confirmed high blood pressure / SNOMED CT 8418278440 / Confirmed Hypothyroidism / SNOMED CT 68207464 / Confirmed kidney stone right kidney current and hx / SNOMED CT 802952127 / Confirmed Osteoporosis / SNOMED CT 569995836 / Confirmed Pneumonia / SNOMED CT 347049379 / Confirmed restless leg syndrome / SNOMED CT 21627526 / Confirmed rheumatoid arthritis / SNOMED CT 166000344 / Confirmed Seasonal allergies / SNOMED CT 7983346852 / Confirmed Vitamin D deficiency / SNOMED CT 77006140 / Confirmed Resolved: Hypotension / SNOMED CT 90890505 Canceled: adrenal insufficiency / SNOMED CT 5949446969 Canceled: Hyperthyroidism / SNOMED CT [id number], Active Problems (33) Adrenal insufficiency Aortic valve [...] mg, Rectal, 1-Time, PRN: Constipation Flonase: 1 [place], Nostrils Both, BID Florastor: 250 mg, Oral, [...] intl units oral capsule: 1 Cap, Oral, [id number], 0 Refill(s) Dilaudid: pain pump, 0 Refill(s) Flax Seed Oil: 1,200 mg, Oral, BID, 0 Refill(s) Flonase: 1 [place], Nostrils Both, BID Lunesta: 3 mg, Oral, [...] azelastine 205.5 mcg/inh (0.15%) nasal spray: 2 [place], Nasal, BID, PRN: for allergy symptoms, 0 [...] azelastine 205.5 mcg/inh (0.15%) nasal spray 2 [place], PRN, Nasal, BID biotin 5 mg, Oral, [...] 50,000 Int Units = 1 Cap, Oral, [id number] Dilaudid donepezil 23 mg, Oral, Daily famotidine 40 mg, Oral, BID Flax Seed Oil 1,200 mg, Oral, BID Flonase 1 [place], Nostrils Both, BID gabapentin 100 mg oral [...] 2,000 Int Units, Oral, Daily , Medications (37) Active Scheduled: (26) acetaminophen 500 mg tab [...] Oral, QAM fluticasone 0.05% nasal spray 1 [place], Nostrils Both, BID gabapentin 100 mg cap [...] 1,000 mg 10 mL, Topical, 1-Time Continuous: (0) PRN: (11) albuterol 0.083% inh [...] 24 hrs) Last Charted Minimum Maximum Temp 97.4 (JUL 28 05:56) 97.4 (JUL 28 05:56) 98.1 (JUL 27 14:13) Apical HR 84 (JUL 28 09:48) 84 (JUL 28 09:48) 92 (JUL 27 21:31) Mon HR 102 (JUL 28 09:33) 66 (JUL 28 01:45) 102 (JUL 28 09:33) Resp Rate 18 (JUL 28 05:56) 16 (JUL 27 14:13) 18 (JUL 27:26) SBP 140 (JUL 28 05:56) 134 (JUL 27 14:13) H 149 (JUL 27 18:22) DBP H 99 (JUL 28 05:56) L 57 (JUL 27 14:13) H 99 (JUL 28 05:56) MAP 108 (JUL 28 05:56) 75 (JUL 27 14:13) 108 (JUL 28 05:56) SpO2 96 (JUL 28 05:56) 94 (JUL 27 14:13) 98 (JUL 27 21:26) Physical Examination VS/Measurements Vitals Signs (last 24 hrs) Last Charted Minimum Maximum Temp 97.4 (JUL 28 05:56) 97.4 (JUL 28 05:56) 98.1 (JUL 27 14:13) Apical HR 84 (JUL 28 09:48) 84 (JUL 28 09:48) 92 (JUL 27:31) Mon HR 102 (JUL 28 09:33) 66 (JUL 28 01:45) 102 (JUL 28 09:33) Resp Rate 18 (JUL 28 05:56) 16 (JUL 27 14:13) 18 (JUL 27 21:26) SBP 140 (JUL 28 05:56) 134 (JUL 27 14:13) H 149 (JUL 27 18:22) DBP H 99 (JUL 28 05:56) L 57 (JUL 27 14:13) H 99 (JUL 28 05:56) MAP 108 (JUL 28 05:56) 75 (JUL 27 14:13) 108 (JUL 28 05:56) SpO2 96 (JUL 28 05:56) 94 (JUL 27 14:13) 98 (JUL 27 21:26) General: Alert and oriented, Mild distress, Obese, [...] 117 (JUL 24) Na H 148 (JUL 28) H 148 (JUL 27) H 147 (JUL 26) H 148 (JUL 25) K 4.1 (JUL 28) 4.0 (JUL 27) 4.2 (JUL 26) 4.5 (JUL 25) Cl 111 (JUL 28) H 114 (JUL 27) H 113 (JUL 26) H 115 (JUL 25) CO2 29 (JUL 28) 29 (JUL 27) 29 (JUL 26) 28 (JUL 25) BUN 10 (JUL 28) 9 (JUL 27) 9 (JUL 26) 10 (JUL 25) Cr 1.00 (JUL 28) 1.02 (JUL 27) 0.96 (JUL 26) 0.92 (JUL 25) Glu R H 115 (JUL 28) H 113 (JUL 27) 97 (JUL 26) 93 (JUL 25) Ca 9.2 (JUL 28) 8.8 (JUL 27) 9.0 (JUL 26) 8.9 (JUL 25) AST 26 (JUL 25) 23 (JUL 24) [...] is obese and debilitated, her , nurse, casework specialist THE bedside. The really voiced some interest [...] the afternoon. The patient's nurse and her casework specialist who saw her yesterday at the bedside and we'll concur that she would benefit from short-term retirement facility placement given her right hip replacement. [...] any more bleeding or significant blood loss. , July 26, 2019. 25 minutes spent on follow-up this really nice obese debilitated lady with some dementia seizure disorders chronic pain issues tolerated her right hip surgery without issue she is doing well this morning her white count stable at 4, hemoglobin stable at 8.5, creatinine screw 0.9. PATIENT, her , casework specialist. She was turned down by the [facility] because she's on some expensive medications including [...] gets a bed at a rehabilitation facility. July. 26 minutes spent on the follow-up this really nice lady who has a little bit of dementia but she is always very pleasant when I work with her she makes good effort with physical therapy apparently she could check with him earlier today some more stable than she had been before. Very pleased that her hemoglobin gone up a little bit 8.8 yesterday but I would like to recheck his CBC in the morning to make sure hemoglobin is stable. Discussed with casework specialist and waiting on a rehabilitation bed preferably at [facility]. I did tell them on happy to change some medications around if they need any medications or affordable further pharmacy but ultimately she needs to be some place where she can get really intense rehabilitation so that she can go home and says lungs possible without any complications. DrivenBIation system used. Computer program makes numerous spelling grammar mistakes. If you have any questions or concerns do not hesitate call Dr. Travis Lux at cell phone number [phone]. documented in this encounter Plan of Treatment Not on file documented as of this encounter Visit Diagnoses Not on filedocumented in this encounter
--- OUTSIDE RECORDS SUMMARY | 2025-01-23 08:40 | XMS_ITS | Encounter Summary ---
Author Organization [employer] Address [address] [place] [address] Care Team Providers Care Editorial Assistant Name Role Phone Unavailable Primary Care Provider Unavailabl e Encounter Details Date Type Department Care Team (Late st Contact Info) Description 07/29/2019 Transcribed Document [facility] 1 [place] [address] Travis Robles MD [address] [place], [place] [id number] Social History Tobacco Use Types Packs/Day Years Used Date Smoking Tobacco: Never Assessed Comments Unknown Sex and Gender Information Value Date Recorded Sex Assigned at Not on file Legal Sex Female 1:42 PM CDT Gender Identity Not on file Sexual Orientation Not on file documented as of this encounter Miscellaneous Notes * Cerner Conversion Note - Travis Robles MD - 07/29/2019 11:46 AM EST Patient: SANDIE FRANK Age: 63 years Sex: Female : 1955 Associated Diagnoses: None Author: TRAVIS ROBLES MD-INT Subjective Chief complaint. Tuesday, July 23, 2019. No fevers or chills. No shortness of breath coughing wheezing. She has a right hip pain postoperatively and she's working with physical therapy with the , nurse, spring encaser all the bedside. She look like she is about to fallout ofthe bed. The patient's was asking about taking her home. He wanted to know if Dr. Patrick Knutson M.D. with orthopedic surgery actually goes to see patients at the [facility] That he does not go to the [facility] although 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 Physical therapy strongly agreed that he needs to go to inpatient rehabilitation either [facility] are at the [facility]. No fevers or chills. No nausea vomiting. [...] She is still agreeable to going to long-term facility. Patient's nurse and the patient's spring encaser who saw her upstairs saw her again [...] at the bedside as well as the spring encaser. They're looking at placement options. Apparently wanted facilities turn her down because of Lunesta apparently it's expensive medication and then there is a inhaler that she was getting that was expensive. I told her that we could probably find more affordable alternatives at least while she is in the long-term facility if necessary. Saturday, July 27, 2019. [...] her baseline but I suspect it's Precose. , July 28, 2019. No fevers or chills this morning. Super pleasant nice lady she states her pain started a little bit better with that pain at 5 / 10. No nausea vomiting. No diarrhea constipation. Nurses at the bedside but patient's is not at the bedside. Awaiting for placement options. I told the nurse from my standpoint she can go whenever she gets a rehabilitation bed. A, July 29, 2019. Patient's little bit better. She states she has some pain work her from sleep overnight but still little bit better this month. No nausea vomiting. No diarrhea constipation. The nurse states she was able to do very much with physical therapy at least not enough for her to go to [facility] at this point. Encouraged her to continue working this with them as much as she can set that she will eventually qualify for rehabilitation placement otherwise really looked at other locations. Review of Systems Constitutional: Weakness, Decreased activity, [...] list: Medical Adrenal insufficiency / SNOMED CT 9008586061 / Confirmed Aortic valve stenosis / SNOMED CT 653325264 / Confirmed Arthritis / SNOMED CT 9791711 / Confirmed Asthma / SNOMED CT 464681099 / Confirmed At risk for sleep apnea / IMO 07696232 / Confirmed Cataracts, both eyes / SNOMED CT 662768713 / Confirmed chronic back pain / SNOMED CT 077768144 / Confirmed chronic diarrhea / SNOMED CT 504412629 / Confirmed Chronic kidney disease / SNOMED CT 1940484182 / Confirmed B12 deficiency / SNOMED CT 098556878 / Confirmed Dementia / SNOMED CT 30969690 / Confirmed depression / SNOMED CT 46645343 / Confirmed uses Renexa / SNOMED CT 1639487 / Confirmed chronic hydrocort use / SNOMED CT 1085311 / Confirmed peripheral neuropathy / SNOMED CT 78984616 / Confirmed GERD / SNOMED CT 847946692 / Confirmed fibromyalgia / SNOMED CT 11266749 / Confirmed Glaucoma / SNOMED CT 59289054 / Confirmed migraine headaches / SNOMED CT 976179748 / Confirmed hx cataract surgery bilateral / SNOMED CT 6583663931 / Confirmed hx. chest pain / SNOMED CT 5206338810 / Confirmed hx colon resection secondary decreased function / SNOMED CT 4639887533 / Confirmed hx. frequent UTIs / SNOMED CT 7528725248 / Confirmed high cholesterol / SNOMED CT 67833737 / Confirmed high blood pressure / SNOMED CT 6236606920 / Confirmed Hypothyroidism / SNOMED CT 72944806 / Confirmed kidney stone right kidney current and hx / SNOMED CT 434137492 / Confirmed Osteoporosis / SNOMED CT 399999781 / Confirmed Pneumonia / SNOMED CT 078648594 / Confirmed restless leg syndrome / SNOMED CT 29030528 / Confirmed rheumatoid arthritis / SNOMED CT 945571470 / Confirmed Seasonal allergies / SNOMED CT 2736725576 / Confirmed Vitamin D deficiency / SNOMED CT 87723060 / Confirmed Resolved: Hypotension / SNOMED CT 03984681 Canceled: adrenal insufficiency / SNOMED CT 4215942794 Canceled: Hyperthyroidism / SNOMED CT [id number], Active Problems (33) Adrenal insufficiency Aortic valve [...] mg, Rectal, 1-Time, PRN: Constipation Flonase: 1 [place], Nostrils Both, BID Florastor: 250 mg, Oral, [...] intl units oral capsule: 1 Cap, Oral, Q6Pisyn, 0 Refill(s) Dilaudid: pain pump, 0 Refill(s) Flax Seed Oil: 1,200 mg, Oral, BID, 0 Refill(s) Flonase: 1 [place], Nostrils Both, BID Lunesta: 3 mg, Oral, [...] azelastine 205.5 mcg/inh (0.15%) nasal spray: 2 [place], Nasal, BID, PRN: for allergy symptoms, 0 [...] azelastine 205.5 mcg/inh (0.15%) nasal spray 2 [place], PRN, Nasal, BID biotin 5 mg, Oral, [...] 50,000 Int Units = 1 Cap, Oral, H7Dnerc Dilaudid donepezil 23 mg, Oral, Daily famotidine 40 mg, Oral, BID Flax Seed Oil 1,200 mg, Oral, BID Flonase 1 [place], Nostrils Both, BID gabapentin 100 mg oral [...] 2,000 Int Units, Oral, Daily , Medications (35) Active Scheduled: (24) acetaminophen 500 mg tab 1,000 mg 2 [...] Oral, QAM fluticasone 0.05% nasal spray 1 [place], Nostrils Both, BID gabapentin 100 mg cap [...] Last Charted Minimum Maximum Temp 97.8 (JUL 29 05:57) 97.8 (JUL 29 05:57) 98.6 (JUL 28 14:00) Apical HR 82 (JUL 29 08:35) 82 (JUL 28 21:35) 82 (JUL 28 21:35) Mon HR 74 (JUL 29 08:50) 71 (JUL 29 05:57) 88 (JUL 28 14:00) Resp Rate 20 (JUL 29 08:50) 18 (JUL 28 14:00) 20 (JUL 29 08:50) SBP 138 (JUL 29 05:57) 125 (JUL 28 14:00) H 165 (JUL 28:) DBP 65 (JUL 29 05:57) 65 (JUL 29 05:57) 71 (JUL 28:) MAP 85 (JUL 29 05:57) 78 (JUL 28 14:00) 90 (JUL 28:) SpO2 95 (JUL 29 08:50) L 93 (JUL 28:) 100 (JUL 28 20:00) Physical Examination VS/Measurements Vitals Signs (last 24 hrs) Last Charted Minimum Maximum Temp 97.8 (JUL 29 05:57) 97.8 (JUL 29:57) 98.6 (JUL 28 14:00) Apical HR 82 (JUL 29 08:35) 82 (JUL 28:35) 82 (JUL 28:35) Mon HR 74 (JUL 29 08:50) 71 (JUL 29 05:57) 88 (JUL 28 14:00) Resp Rate 20 (JUL 29 08:50) 18 (JUL 28 14:00) 20 (JUL 29 08:50) SBP 138 (JUL 29 05:57) 125 (JUL 28 14:00) H 165 (JUL 28:31) DBP 65 (JUL 29 05:57) 65 (JUL 29 05:57) 71 (JUL 28:31) MAP 85 (JUL 29 05:57) 78 (JUL 28 14:00) 90 (JUL 28:31) SpO2 95 (JUL 29 08:50) L 93 (DEC 26 21:31) 100 (JUL 28 20:00) General: Alert and oriented, Mild distress, Obese, [...] review: Labs (Last four charted values) WBC 5.6 (JUL 29) 4.2 (JUL 27) 4.5 (JUL 26) 5.1 (JUL 25) HB L 9.5 (JUL 29) L 8.8 (JUL 27) L 8.5 (JUL 26) L 8.6 (JUL 25) HCT L 29.9 (JUL 29) L 27.8 (JUL 27) L 26.9 (JUL 26) L 27.3 (JUL 25) Plt 179 (JUL 29) 165 (JUL 27) L 152 (JUL 26) L 127 (JUL 25) Na 144 (JUL 29) H 148 (JUL 28) H 148 (JUL 27) H 147 (JUL 26) K 3.9 (JUL 29) 4.1 (JUL 28) 4.0 (JUL 27) 4.2 (JUL 26) Cl 111 (JUL 29) 111 (JUL 28) H 114 (JUL 27) H 113 (JUL 26) CO2 28 (JUL 29) 29 (JUL 28) 29 (JUL 27) 29 (JUL 26) BUN 11 (JUL 29) 10 (JUL 28) 9 (JUL 27) 9 (JUL 26) Cr 1.00 (JUL 29) 1.00 (JUL 28) 1.02 (JUL 27) 0.96 (JUL 26) Glu R 105 (JUL 29) H 115 (JUL 28) H 113 (JUL 27) 97 (JUL 26) Ca 9.3 (JUL 29) 9.2 (JUL 28) 8.8 (JUL 27) 9.0 (JUL 26) AST 23 (JUL 29) 26 (JUL 25) 23 (JUL 24) ALT 23 (JUL 29) 18 (JUL 25) 19 (JUL 24) ALK P 97 (JUL 29) 86 (JUL 25) 81 (JUL 24) T Bili 0.5 (JUL 29) 0.4 (JUL 25) 0.3 (JUL 24) PTN L 5.6 (JUL 29) L 5.1 (JUL 25) L 5.0 (JUL 24) ALB L 2.9 (JUL 29) L 2.6 (JUL [...] is obese and debilitated, her , nurse, spring encaser THE bedside. The really voiced some interest [...] the afternoon. The patient's nurse and her spring encaser who saw her yesterday at the bedside and we'll concur that she would benefit from short-term long-term facility placement given her right hip replacement. [...] 8.5, creatinine screw 0.9. PATIENT, her , spring encaser. She was turned down by the [facility] because she's on some expensive medications including [...] make sure hemoglobin is stable. Discussed with spring encaser and waiting on a rehabilitation bed preferably at [facility]. I did tell them on happy to change some medications around if they need any medications or affordable further pharmacy but ultimately she needs to be some place where she can get really intense rehabilitation so that she can go home and says lungs possible without any complications. Monday, July 29, 2019. 24 minutes spent on the follow-up this nice obese lady some mild dementia. Patient's white blood cell counts 5, hemoglobin increased to 9, creatinine is 1.0. Mr. Cunha told her she is to work with physical therapy so that she can qualify for inpatient rehabilitation. Otherwise restart looking at other locations. Also have the case management team see what alternative medications he continues for her to qualify for the [facility] [place] some anxiety about the cost of Lunesta. dia[employer] dictation system used. Computer program makes numerous spelling grammar mistakes. If you have any questions or concerns do not hesitate call Dr. Travis Lux at cell phone number [phone]. documented in this encounter Plan of Treatment Not on file documented as of this encounter Visit Diagnoses Not on filedocumented in this encounter
--- OUTSIDE RECORDS SUMMARY | 2025-01-23 08:40 | XMS_ITS | Encounter Summary ---
Author Organization [employer] Address [address] [place] [address] Care Team Providers Care Section Gang Name Role Phone Unavailable Primary Care Provider Unavailabl e Encounter Details Date Type Department Care Team (Late st Contact Info) Description 07/29/2019 Transcribed Document [facility] [place] [address] ProviderSonia MD [address] [place] [id number] Social History Tobacco Use Types Packs/Day Years Used Date Smoking Tobacco: Never Assessed Comments Unknown Sex and Gender Information Value Date Recorded Sex Assigned at Not on file Legal Sex Female 1:42 PM CDT Gender Identity Not on file Sexual Orientation Not on file documented as of this encounter Miscellaneous Notes * Cerner Conversion Note - Historical ProviderMD - 07/29/2019 10:00 PM RECOVERY ROOM RN Pain Assessment Entered On: 07/30/2019 2:07 EST Performed On: 07/29/2019 22:57 EST by Myrna Deleon RN Intervention Information: acetaminophen Performed by Myrna Deleon RN on 07/29/2019 21:57:00 EST acetaminophen,1000mg Oral Pain Assessment Pain Assessment : Follow-up assessment Pain Scale Goal : 5 Pain Scale Used : 0-10 Scale Myrna Deleon RN - 07/30/2019 2:07 EST Pain Scale Intensity : 4 Myrna Deleon RN - 07/30/2019 2:07 EST Image 4 - Images currently included in the form version of this document have not been included in the text rendition version of the form. documented in this encounter Plan of Treatment Not on file documented as of this encounter Visit Diagnoses Not on filedocumented in this encounter
--- OUTSIDE RECORDS SUMMARY | 2025-01-23 08:40 | XMS_ITS | Encounter Summary ---
Author Organization [employer] Address [address] [place] [address] Care Team Providers Care Senior Attorney Name Role Phone Unavailable Primary Care Provider Unavailabl e Encounter Details Date Type Department Care Team (Late st Contact Info) Description 07/28/2019 Transcribed Document [facility] Family Medicine [facility] [place] [address] ProviderSonia MD [address] [place] [id number] Social History Tobacco Use Types Packs/Day Years Used Date Smoking Tobacco: Never Assessed Comments Unknown Sex and Gender Information Value Date Recorded Sex Assigned at Not on file Legal Sex Female 1:42 PM CDT Gender Identity Not on file Sexual Orientation Not on file documented as of this encounter Miscellaneous Notes * Cerner Conversion Note - Historical ProviderMD - 07/28/2019 5:00 AM QUENCHER OPERATOR Chart Check - Review Order Profile Entered On: 07/28/2019 4:25 EST Performed On: 07/28/2019 5:00 EST by Myrna Deleon, RN Chart Check Powerplans Initiated/Discontinued as Appropriate : Yes All Active Orders Reviewed : Yes Myrna Deleon, RN - 07/28/2019 4:25 EST Electronically signed by Raman [facility] Conversion Food Sampler Cerner at 11/19/2022 8:33 PM CDT documented in this encounter Plan of Treatment Not on file documented as of this encounter Visit Diagnoses Not on filedocumented in this encounter
--- OUTSIDE RECORDS SUMMARY | 2025-01-23 08:40 | XMS_ITS | Encounter Summary ---
Author Organization [employer] Address [address] [place] [address] Care Team Providers Care Capacitor Pack Press Operator Name Role Phone Unavailable Primary Care Provider Unavailabl e Encounter Details Date Type Department Care Team (Late st Contact Info) Description 07/30/2019 Transcribed Document [facility] [address] [place] [address] Diaz Vega MD [address] [place] [address] Social History Tobacco Use Types Packs/Day Years Used Date Smoking Tobacco: Never Assessed Comments Unknown Sex and Gender Information Value Date Recorded Sex Assigned at Not on file Legal Sex Female 1:42 PM CDT Gender Identity Not on file Sexual Orientation Not on file documented as of this encounter Miscellaneous Notes * Cerner Conversion Note - Diaz Vega MD - 07/30/2019 11:53 AM EST Patient: SANDIE AMARO Age: 63 years Sex: Female : 1955 Associated Diagnoses: None Author: DIAZ VEGA MD Subjective Patient seen and examined No issues overnight Hemodynamically stable at the bedside She still feels weak and tired Review of Systems Constitutional: Weakness, Decreased activity, [...] hx cataract surgery bilateral / SNOMED CT 4744759198 / Confirmed high blood pressure / SNOMED CT 0745841015 / Confirmed uses Renexa / SNOMED CT 3357218 / Confirmed hx. chest pain / SNOMED CT 7695884421 / Confirmed high cholesterol / SNOMED CT 97649909 / Confirmed hx colon resection secondary decreased function / SNOMED CT 9637365118 / Confirmed chronic diarrhea / SNOMED CT 678201751 / Confirmed GERD / SNOMED CT 275499668 / Confirmed kidney stone right kidney current and hx / SNOMED CT 326016909 / Confirmed hx. frequent UTIs / SNOMED CT 7807997089 / Confirmed restless leg syndrome / SNOMED CT 14537108 / Confirmed chronic back pain / SNOMED CT 052771099 / Confirmed fibromyalgia / SNOMED CT 60212833 / Confirmed rheumatoid arthritis / SNOMED CT 632309306 / Confirmed Hypothyroidism / SNOMED CT 16882962 / Confirmed depression / SNOMED CT 36330435 / Confirmed migraine headaches / SNOMED CT 784643023 / Confirmed peripheral neuropathy / SNOMED CT 33222943 / Confirmed chronic hydrocort use / SNOMED CT 5775024 / Confirmed Adrenal insufficiency / SNOMED CT 9855465231 / Confirmed Arthritis / SNOMED CT 9036860 / Confirmed Aortic valve stenosis / SNOMED CT 934656687 / Confirmed At risk for sleep apnea / IMO 54978084 / Confirmed Glaucoma / SNOMED CT 28345149 / Confirmed Cataracts, both eyes / SNOMED CT 498496624 / Confirmed Osteoporosis / SNOMED CT 303061462 / Confirmed Seasonal allergies / SNOMED CT 8371002028 / Confirmed Asthma / SNOMED CT 519499006 / Confirmed Vitamin D deficiency / SNOMED CT 57745821 / Confirmed Dementia / SNOMED CT 80978506 / Confirmed Chronic kidney disease / SNOMED CT 8732027485 / Confirmed B12 deficiency / SNOMED CT 486896343 / Confirmed Pneumonia / SNOMED CT 414136808 / Confirmed Resolved: Hypotension / SNOMED CT 69562292 Canceled: adrenal insufficiency / SNOMED CT 0736675365 Canceled: Hyperthyroidism / SNOMED CT 12433WDJ-FDS2-698A-634X-[id number], Active Problems (33) Adrenal insufficiency Aortic valve [...] mg, Rectal, 1-Time, PRN: Constipation Flonase: 1 Clarinda, Nostrils Both, BID Florastor: 250 mg, Oral, [...] intl units oral capsule: 1 Cap, Oral, [id number], 0 Refill(s) Dilaudid: pain pump, 0 Refill(s) Flax Seed Oil: 1,200 mg, Oral, BID, 0 Refill(s) Flonase: 1 Clarinda, Nostrils Both, BID Lunesta: 3 mg, Oral, [...] azelastine 205.5 mcg/inh (0.15%) nasal spray: 2 Clarinda, Nasal, BID, PRN: for allergy symptoms, 0 [...] azelastine 205.5 mcg/inh (0.15%) nasal spray 2 Clarinda, PRN, Nasal, BID biotin 5 mg, Oral, [...] 50,000 Int Units = 1 Cap, Oral, [id number] Dilaudid donepezil 23 mg, Oral, Daily famotidine 40 mg, Oral, BID Flax Seed Oil 1,200 mg, Oral, BID Flonase 1 Clarinda, Nostrils Both, BID gabapentin 100 mg oral [...] Oral, QAM fluticasone 0.05% nasal spray 1 Clarinda, Nostrils Both, BID gabapentin 100 mg cap [...] Last Charted Minimum Maximum Temp 97.5 (JUL 30 06:45) 97.5 (JUL 30 06:45) 98 (JUL 29 11:10) Apical HR 64 (JUL 30 10:34) 64 (JUL 30 10:34) 70 (JUL 29 21:57) Mon HR 56 (JUL 30 06:45) 52 (JUL 29 11:10) 68 (JUL 29 16:44) Resp Rate 18 (JUL 30 06:45) 16 (JUL 29 11:10) 18 (JUL 29 16:44) SBP 103 (JUL 30 10:34) 103 (JUL 30 10:34) 133 (JUL 29 17:23) DBP L 47 (JUL 30 10:34) L 47 (JUL 30 10:34) 62 (JUL 29 17:23) MAP 65 (JUL 30 06:45) 63 (JUL 29 11:10) 78 (JUL 29 17:23) SpO2 96 (JUL 30 08:14) 94 (JUL 29 11:10) 96 (JUL 29 16:44) Physical Examination VS/Measurements Vitals Signs (last 24 hrs) Last Charted Minimum Maximum Temp 97.5 (JUL 30 06:45) 97.5 (JUL 30 06:45) 98 (JUL 29 11:10) Apical HR 64 (JUL 30 10:34) 64 (JUL 30 10:34) 70 (JUL 29 21:57) Mon HR 56 (JUL 30 06:45) 52 (JUL 29 11:10) 68 (JUL 29 16:44) Resp Rate 18 (JUL 30 06:45) 16 (JUL 29 11:10) 18 (JUL 29 16:44) SBP 103 (JUL 30 10:34) 103 (JUL 30 10:34) 133 (JUL 29 17:23) DBP L 47 (JUL 30 10:34) L 47 (JUL 30 10:34) 62 (JUL 29 17:23) MAP 65 (JUL 30 06:45) 63 (JUL 29 11:10) 78 (JUL 29 17:23) SpO2 96 (JUL 30 08:14) 94 (JUL 29 11:10) 96 (JUL 29 16:44) General: Alert and oriented, Mild distress, Obese, [...] (Last four charted values) WBC 5.6 (JUL 30) 5.6 (JUL 29) 4.2 (JUL 27) 4.5 (JUL 26) HB L 9.3 (JUL 30) L 9.5 (JUL 29) L 8.8 (JUL 27) L 8.5 (JUL 26) HCT L 29.8 (JUL 30) L 29.9 (JUL 29) L 27.8 (JUL 27) L 26.9 (JUL 26) Plt 172 (JUL 30) 179 (JUL 29) 165 (JUL 27) L 152 (JUL 26) Na 144 (JUL 30) 144 (JUL 29) H 148 (JUL 28) H 148 (JUL 27) K 4.4 (JUL 30) 3.9 (JUL 29) 4.1 (JUL 28) 4.0 (JUL 27) Cl 110 (JUL 30) 111 (JUL 29) 111 (JUL 28) H 114 (JUL 27) CO2 28 (JUL 30) 28 (JUL 29) 29 (JUL 28) 29 (JUL 27) BUN 13 (JUL 30) 11 (JUL 29) 10 (JUL 28) 9 (JUL 27) Cr H 1.14 (JUL 30) 1.00 (JUL 29) 1.00 (JUL 28) 1.02 (JUL 27) Glu R H 115 (JUL 30) 105 (JUL 29) H 115 (JUL 28) H 113 (JUL 27) Ca 9.1 (JUL 30) 9.3 (JUL 29) 9.2 (JUL 28) 8.8 (JUL 27) AST 29 (JUL 30) 23 (JUL 29) [...] Patient medically ready to be discharged to [facility] facility documented in this encounter Plan of Treatment Not on file documented as of this encounter Visit Diagnoses Not on filedocumented in this encounter
--- OUTSIDE RECORDS SUMMARY | 2025-01-23 08:40 | XMS_ITS | Encounter Summary ---
Author Organization [employer] Address [address] [place] [address] Care Team Providers Care Industrial Manufacturing Technician Name Role Phone Unavailable Primary Care Provider Unavailabl e Encounter Details Date Type Department Care Team (Late st Contact Info) Description 07/28/2019 Transcribed Document [facility] [place] [facility] [place] [address] ProviderSonia MD [address] [place] [id number] Social History Tobacco Use Types Packs/Day Years Used Date Smoking Tobacco: Never Assessed Comments Unknown Sex and Gender Information Value Date Recorded Sex Assigned at Not on file Legal Sex Female 1:42 PM CDT Gender Identity Not on file Sexual Orientation Not on file documented as of this encounter Miscellaneous Notes * Cerner Conversion Note - Historical ProviderMD - 07/28/2019 2:00 PM PERSONNEL SECURITY SPECIALIST Pain Assessment Entered On: 07/28/2019 18:05 EST Performed On: 07/28/2019 14:46 EST by Esther Cunningham RN Intervention Information: acetaminophen Performed by Esther Cunningham RN on 07/28/2019 13:46:00 EST acetaminophen,1000mg Oral Pain Assessment Pain Assessment : Follow-up assessment Pain Scale Goal : 5 Pain Scale Used : 0-10 Scale Esther Cunningham RN - 07/28/2019 18:05 EST Pain Scale Intensity : 1 Esther Cunningham RN - 07/28/2019 18:05 EST Image 4 - Images currently included in the form version of this document have not been included in the text rendition version of the form. documented in this encounter Plan of Treatment Not on file documented as of this encounter Visit Diagnoses Not on filedocumented in this encounter
--- OUTSIDE RECORDS SUMMARY | 2025-01-23 08:40 | XMS_ITS | Encounter Summary ---
Author Organization [employer] Address [address] [place] [address] Care Team Providers Care Towerman Name Role Phone Unavailable Primary Care Provider Unavailabl e Encounter Details Date Type Department Care Team (Late st Contact Info) Description 07/30/2019 Transcribed Document [facility] [place] Family Medicine [facility] [place] [address] ProviderSonia MD [address] [place], [place] [id number] Social History Tobacco Use Types Packs/Day Years Used Date Smoking Tobacco: Never Assessed Comments Unknown Sex and Gender Information Value Date Recorded Sex Assigned at Not on file Legal Sex Female 1:42 PM CDT Gender Identity Not on file Sexual Orientation Not on file documented as of this encounter Miscellaneous Notes * Cerner Conversion Note - Historical ProviderMD - 07/30/2019 5:00 PM OIL RIGGER Chart Check - Review Order Profile Entered On: 07/30/2019 20:49 EST Performed On: 07/30/2019 17:00 EST by Jennifer Coleman, RN Chart Check Powerplans Initiated/Discontinued as Appropriate : Yes All Active Orders Reviewed : Yes Jennifer Coleman, RN - 07/30/2019 20:49 EST Electronically signed by Raman [facility] Conversion Mule Rider Cerner at 11/19/2022 8:38 PM CDT documented in this encounter Plan of Treatment Not on file documented as of this encounter Visit Diagnoses Not on filedocumented in this encounter
--- OUTSIDE RECORDS SUMMARY | 2025-01-23 08:40 | XMS_ITS | Encounter Summary ---
Author Organization [employer] Address [address] [place] [address] Care Team Providers Care Assembler Gold Frame Name Role Phone Unavailable Primary Care Provider Unavailabl e Encounter Details Date Type Department Care Team (Late st Contact Info) Description 07/30/2019 Transcribed Document [facility] [place] Family Medicine [facility] [place] [address] ProviderSonia MD [address] [place], [place] [id number] Social History Tobacco Use Types Packs/Day Years Used Date Smoking Tobacco: Never Assessed Comments Unknown Sex and Gender Information Value Date Recorded Sex Assigned at Not on file Legal Sex Female 1:42 PM CDT Gender Identity Not on file Sexual Orientation Not on file documented as of this encounter Miscellaneous Notes * Cerner Conversion Note - Historical ProviderMD - 07/30/2019 2:00 AM CALENDERER Habilitation Assistant Details Entered On: 07/30/2019 2:09 EST Performed On: 07/30/2019 2:00 EST by Myrna Deleon RN Order [...] Line : No Myrna Deleon RN - 07/30/2019 2:09 EST documented in this encounter Plan of Treatment Not on file documented as of this encounter Visit Diagnoses Not on filedocumented in this encounter
[2025-01-23 09:13] LABS: Basophils % 0.6 % (0.1-2.0); Eosinophils % 0.6 % (0.1-12.0); Hematocrit 39.6 % (37.0-47.0); Hemoglobin 13.1 g/dL (12.2-16.2); Immature Granulocytes # 0.01 10^3uL; Immature Granulocytes % 0.3 %; Lymphocytes # 0.8 K/mm3 (0.7-4.5); Lymphocytes % 23.7 % (10-50); Mean Corpuscular HGB Conc 33.1 g/dL (31.8-35.4); Mean Corpuscular Hemoglobin 33.3 pg (27.0-31.2); Mean Corpuscular Volume 100.8 fl (81-99); Mean Platelet Volume 11.4 fl (7.4-10.4); Monocytes # 0.3 K/mm3 (0.1-1.0); Monocytes % 10.2 % (1.7-9.3); Neutrophils # 2.1 K/mm3 (1.8-7.8); Neutrophils % 64.6 % (37.0-80.0); Nucleated Red Blood Cells # 0 10^3/uL; Nucleated Red Blood Cells % 0 %; Platelet Count 118 K/mm3 (142-424); Red Blood Count 3.93 M/mm3 (4.20-5.40); Red Cell Distribution Width 14.5 % (11.5-17.5); Red Cell Distribution Width-SD 53.9 fL; White Blood Count 3.3 K/mm3 (4.8-10.8)
[2025-01-23 09:40] LABS: Albumin Level 3.7 g/dl (3.5-5.0); Anion Gap 4.2 mEq/L (5-15); Blood Urea Nitrogen 16 mg/dl (7-17); Calcium 9.7 mg/dl (8.4-10.2); Carbon Dioxide 34 mmol/L (22.0-30.0); Chloride 104 mmol/L (98-107); Estimated Glomerular Filt Rate 82 ml/min (>60); GFR (African American) 100 ML/MIN (>60); Glucose 92 mg/dl (74-100); Potassium 4.2 mmoL/L (3.5-5.1); Sodium 138 mmol/L (136-145)
[2025-01-23 09:53] LABS: Intact Parathyroid Hormone 108.3 pg/mL (7.5-53.5)
[2025-01-23 09:56] LABS: 25-OH Vitamin D, Total 98.1 ng/mL (30-100)
[2025-01-23 10:30] LABS: Iron 86 ug/dL (37-170)
[2025-01-23 10:39] LABS: Total Iron Binding Capacity 281 ug/dL (265-497)
[2025-01-23 11:06] LABS: Ferritin 47.4 ng/ml (11.1-264)
[2025-01-23 14:53] LABS: Microscopic, Urine URINE MICROSCOPIC (MICROSCOPIC)
[2025-01-23 15:11] LABS: Appearance,Urine CLEAR (Clear); Bilirubin,Urine Negative (Negative); Blood, Urine TRACE-I (Negative); Color,Urine YELLOW (Yellow); Glucose,Urine (UA) Negative (Negative); Ketones,Urine Negative (Negative); Leukocyte Esterase,Urine Negative (Negative); Nitrate,Urine Negative (Negative); Protein,Urine Negative (Negative); Specific Gravity, Urine <= 1.005 (1.005-1.030); Urobilinogen,Urine 0.2 EU/dl (0.2)
[2025-01-23 15:33] LABS: Creatinine,Urine Random 20 mg/dL (Not Estab.)
[2025-01-23 15:35] LABS: Bacteria,Urine Trace /lpf; RBC,Urine Occasional #/hpf (0-3)
== END 2025-01-23 23:59 | disposition home or self-care (01) ==
LOC: LAB 08:31
PROVIDERS: PCP Internal Medicine Adolescent Medicine; Visit Provider Internal Medicine Nephrology
DX: N18.31 Chronic kidney disease, stage 3a (principal); E55.9 Vitamin D deficiency, unspecified; N25.81 Secondary hyperparathyroidism of renal origin
CPT/HCPCS: 36415; 80069; 81001; 82306; 82570; 82728; 83540; 83550; 83970; 84156; 85025

== ENCOUNTER 2025-01-30 15:00 | Outpatient (RCR) | payer MEDICARE, BC, SELFPAY ==
--- NOTE | 2025-01-18 11:59 | HMH.RHREAS ---
Rehab Reassessment Rehab OP Re-assessment Start: 01/02/25 10:01 Freq: Status: Active Protocol: Document 01/18/25 09:17 IESHARONIT (Rec: 01/18/25 11:59 MARIE [id number]) E-signed By Amna Arizmendi, PT Oswestry Index Section 1 Pain Intensity The pain is moderate and does not vary much Section 2 Personal Care ( increase the pain and I find it necessary to change my Washing,Dresing) way of doing it Section 3 Lifting I can only lift very light weights at most Section 4 Walking I cannot walk at all without increasing pain Section 5 Sitting I can sit in my favorite chair for as long as I like Section 6 Standing I avoid standing because it increases the pain immediately Section 7 Sleeping Because of my pain, my normal night's sleep is less than 6 hours sleep Section 8 Social Life Pain has restricted my social life to my home Section 9 Traveling Pain restricts me to short necessary journeys under 30 minutes Section 10 Changing Degreee of My pain seems to be getting better, but improvement is Pain slow Score and Risk Level Oswestry Sc 34 Oswestry Risk Level Severe Disability Rehab Re-assessment Subjective Subjective Pt reports she feels 15-20% improved since starting PT. Pt states she did have a colonoscopy yesterday requiring anesthesia and feels a little worse today. Pt reports continued back and BLE pain rated 8/10 at worst on VAS with increased activity. Pt reports continued BLE muscle spasms although improved overall. She states continued altered seated balance although feels it is improving some, states she was able to reach down and grab an object in her wheelchair with her seat belt and return to an upright position I. Pt and report they notice seated balance is worse when fatigued. Pt states she is able to perform all bed mobility with SBA but continues to require assistance to transfer safely due to altered balance. She states she walks a few feet at home with a FWW and assistance from her but mostly uses the wheelchair for mobility. Pt reports she returns to her surgeon on 03/08 for her next follow-up visit. Objective Objective Notes Observation: altered postural control and seated dynamic balance with proximal weakness and altered sensation distally Transfers: minAx1 to stand, min-modAx2 to perform stand step transfers (increased assistance when fatigued) RLE MMT: hip flex 4-/5, hip abd 4-/5, hip add 4-/5, knee ext 3+/5, knee flex 4-/5, ankle DF 4/5 LLE MMT: hip flex 3+/5, hip abd 4-/5, hip add 4-5, knee ext 3+/5, knee flex 4-/5, ankle DF Assessment Progress Assessment Slower Than Expected Assessment Notes Pt has attended PT/OT co-treatment sessions consisting of aerobic exercise, LE/core strengthening, transfers and functional dynamic balance exercises with good tolerance. Pt demonstrated slight improvement in VICTORINA score, transfers and LE strength this date compared to the initial evaluation. Pt continues to report moderate -sever low back and BLE pain and altered seated dynamic balance limiting transfers, ambulation and ADLs. Overall, the pt would continue to benefit from skilled PT to further improve subject report of pain/ paresthesia, LE/core strength, balance/proprioception, transfers, gait and functional activity tolerance to decrease fall risk, decrease burden of care and improve overall QOL. Patient goals met ST/2 Goals Not Met walking, LTG Revised Goals n/a Plan Plan Continue POC Frequency of Therapy 2x/week Duration of therapy 4-6 more weeks Time and Billing Re-Eval Time 19 Re-Eval Billing 0 Units Charge for PT No reassessment? Charge for OT No reassessment? PHYSICIAN CERTIFICATION: I certify the specified therapy services for Sandie Frank are required, authorized, and reviewed every 30 days.
== END 2025-01-30 23:59 | disposition home or self-care (01) ==
LOC: PT 15:00
PROVIDERS: PCP Internal Medicine Adolescent Medicine; Visit Provider Internal Medicine Adolescent Medicine
DX: M47.814 Spondylosis without myelopathy or radiculopathy, thoracic region (principal); G60.9 Hereditary and idiopathic neuropathy, unspecified; R27.0 Ataxia, unspecified
CPT/HCPCS: 97110; 97112; 97530

== ENCOUNTER 2025-01-30 15:00 | Outpatient (RCR) | payer MEDICARE, BC, SELFPAY | END 2025-01-30 23:59 | disposition home or self-care (01) | LOC: OT 15:00 | PROVIDERS: PCP Internal Medicine Adolescent Medicine; Visit Provider Internal Medicine Adolescent Medicine | DX: M47.814 Spondylosis without myelopathy or radiculopathy, thoracic region; R27.0 Ataxia, unspecified; G60.9 Hereditary and idiopathic neuropathy, unspecified | CPT/HCPCS: 97110; 97140; 97530 ==

== ENCOUNTER 2025-03-01 13:00 | Outpatient (RCR) | payer MEDICARE, BC, SELFPAY ==
--- NOTE | 2025-02-13 10:11 | HMH.RHREAS ---
Rehab Reassessment Rehab OP Re-assessment Start: 02/01/25 11:00 Freq: Status: Active Protocol: Document 02/13/25 08:56 GALINA (Rec: 02/13/25 10:10 GALINA [id number]) E-signed By Niecy Thompson OT QuickDASH Activities Please rate your ability to do the following activities in the last week by selecting the number below the appropriate response. 1. Open a tight or Mild difficulty new jar. 2. Do heavy Unable enchilada maker (e. g., wash castaneda, floors). 3. Carry a shopping No difficulty bag or briefcase. 4. Wash your back. Unable 5. Use a knife to Mild difficulty cut food. 6. Recreational Unable activities in which you take some force or impact through your arm, shoulder, or hand (e.g., golf, hammering, tennis, etc.). 7. During the past Moderately week, to what extent has your arm, shoulder or hand problem interfered with your normal social activities with family, friends , neighbors or groups? 8. During the past Slightly limited week, were you limited in your work or other regular daily activites as a result of your arm, shoulder or hand problem? 9. Arm, shoulder or Mild hand pain. 10. Tingling (pins Mild and needles) in your arm, shoulder or hand. 11. During the past Mild difficulty week, how much difficulty have you had sleeping because of the pain in your arm, shoulder or hand? Quick DASH 31 Rehab Re-assessment Subjective Subjective I feel like I am getting stronger. Objective Objective Notes Pt seen on this date by OT for reassessment. Pt reports she has improved since initial evaluation. Pt reports no UE pain today, but does identify continued back and BLE pain rated 6/10 at worst still. Pt reports continued intermittent tremors she relates to weakness in BUE. Sitting balance during ADL tasks is improving, although continues to be an area of deficit . She has been observed to retrieve small items from floor now when seat belt in place and is able to return to upright midline position. Pt is scheduled to see her surgeon on 03/08 for follow-up visit. Pt is scheduled for dr visit on 03/25. Pt continues to report significant numbness and tingling related to neuropathy, with FMC difficulties identified. Pt assists with IADLs, such as simple meal prep tasks, folding laundry, etc. performs majority of IADL task. Pt is primarily wc dependent for mobility and is right hand dominant. She acknowledges that she is benefitting from therapy. Assessment Progress Assessment Progressing as Expected Assessment Notes Pt is consistent with attending therapy sessions. Pt is progressing well in core stability, endurance, and activity tolerance. Pt is improving in self-care, completion of ADL tasks and IADL tasks with assist. Pt is improving in transfers and balance. Pt shows improved MMT of 4-/5. QuickDASH Activities was 31. Pt's asthma educator strength is improving well. Patient goals met 4. increase BUE sustained activity tolerance to 15 min prior to rest 5. pain 6/10 at worst 6. independent with advance HEP 7 QuickDash no greater than 32 Goals Not Met see below Revised Goals 1. increase shoulder flex/abd to 130 2. increase shoulder IR to 50/ER to 60 3 increase BUE strength to 4/5 7. 9-hole peg test no greater than 30 sec bilaterally 8. Bilateral asthma educator at least 35 lbs New goals: 1. Pain at worst 5/10 2.QuickDash 30 or below 6. improved subjective ADL completion with Min Assist Plan Plan continue OT POC Frequency of Therapy 2x/wk Duration of therapy 6 more wks Time and Billing Re-Eval Time 8 Re-Eval Billing 1 Units Charge for OT Yes reassessment? PHYSICIAN CERTIFICATION: I certify the specified therapy services for Sandie Frank are required, authorized, and reviewed every 30 days.
== END 2025-03-01 23:59 | disposition home or self-care (01) ==
LOC: OT 13:00
PROVIDERS: PCP Internal Medicine Adolescent Medicine; Visit Provider Internal Medicine Adolescent Medicine
DX: G60.9 Hereditary and idiopathic neuropathy, unspecified (principal); R27.0 Ataxia, unspecified; M47.814 Spondylosis without myelopathy or radiculopathy, thoracic region
CPT/HCPCS: 97110; 97168; 97530

== ENCOUNTER 2025-03-01 13:00 | Outpatient (RCR) | payer MEDICARE, BC, SELFPAY ==
--- NOTE | 2025-02-20 11:25 | HMH.RHREAS ---
Rehab Reassessment Rehab OP Re-assessment Start: 02/01/25 10:58 Freq: Status: Active Protocol: Document 02/20/25 10:36 MAIKELCarmen (Rec: 02/20/25 11:24 MARIE [id number]) E-signed By Amna Arizmendi, PT Oswestry Index Section 1 Pain Intensity The pain comes and goes and is moderate Section 2 Personal Care ( change my way of washing or dressing in order to avoid Washing,Dresing) pain Section 3 Lifting lifting heavy weights off the floor, but I can manage light to medium Section 4 Walking I cannot walk at all without increasing pain Section 5 Sitting I can sit in my favorite chair for as long as I like Section 6 Standing I cannot stand more than 10 minutes without increasing pain Section 7 Sleeping I get pain in bed, but it does not prevent me from sleeping well Section 8 Social Life Pain has restricted my social life to my home Section 9 Traveling Pain restricts me to short necessary journeys under 30 minutes Section 10 Changing Degreee of My pain seems to be getting better, but improvement is Pain slow Score and Risk Level Oswestry Sc 27 Oswestry Risk Level Severe Disability Rehab Re-assessment Subjective Subjective Pt reports she feels 25% improved since starting PT. Pt reports continued constant low back and BLE pain rated 6/10 on average and 8/10 at worst. Pt reports pain at worst occurs with exercises and improves to baseline with rest. Pt reports she feels that her seated balance is improving overall but continues to sway at times. Pt reports she has been able to perform bed mobility I but continues to require assistance from her with sit to stand transfers, standing and walking short distances with her RW. Pt reports she returns to her surgeon at the beginning of March for her next follow- up visit. Objective Objective Notes Observation: altered postural control and seated dynamic balance with proximal weakness and altered sensation distally Standing tolerance: able to stand 5' with BUE support with minimal sway Transfers: minAx1 to perform sit to stand and stand step transfers RLE MMT: hip flex 4-/5, hip abd 4/5, hip add 4/5, knee ext 4/5, knee flex 4-/5, ankle DF 4/5 LLE MMT: hip flex 4-/5, hip abd 4/5, hip add 4/5, knee ext 4/5, knee flex 4-/5, ankle DF 4/5 Assessment Assessment Notes Pt has attended PT/OT co-treatment sessions consisting of aerobic exercise, LE/core strengthening, transfers, standing tolerance and functional dynamic balance exercises with good tolerance. Pt demonstrated improved VICTORINA score, LE strength, transfers and standing tolerance this date compared to previous assessment. Pt continues to report moderate-severe low back and BLE pain and altered balance limiting transfers, ambulation and ADLs. Overall, the pt would continue to benefit from skilled PT to further improve subject report of pain/paresthesia, LE/core strength, balance/ proprioception, transfers, gait and functional activity tolerance to decrease fall risk, decrease burden of care and improve overall QOL. Patient goals met ST/2 LT/5 Goals Not Met p! at worst, strength, transfers, ambulation Revised Goals n/a Plan Plan Continue POC Frequency of Therapy 2x/week Duration of therapy 4 more weeks Time and Billing Re-Eval Time 11 Re-Eval Billing 0 Units Charge for PT No reassessment? Charge for OT No reassessment? PHYSICIAN CERTIFICATION: I certify the specified therapy services for Sandie Frank are required, authorized, and reviewed every 30 days.
== END 2025-03-01 23:59 | disposition home or self-care (01) ==
LOC: PT 13:00
PROVIDERS: PCP Internal Medicine Adolescent Medicine; Visit Provider Internal Medicine Adolescent Medicine
DX: G60.9 Hereditary and idiopathic neuropathy, unspecified (principal); M47.814 Spondylosis without myelopathy or radiculopathy, thoracic region; R27.0 Ataxia, unspecified
CPT/HCPCS: 97530

== ENCOUNTER 2025-03-08 08:31 | Outpatient (CLI) | payer MEDICARE, BC, SELFPAY ==
--- OUTSIDE RECORDS SUMMARY | 2017-12-24 10:37 | XMS_ITS | Encounter Summary ---
Author Organization [facility] Address [address] [place] [address] Care Team Providers Care Crop Insurance Claims Adjuster Name Role Phone Marc Rodriguez MD Primary Care Provider [phone] Encounter Details Date Type Department Care Team (Late st Contact Info) Description 12/24/2017 10:37 AM EDT Hospital Encounter [facility] PULMONARY & CRITICAL CARE MEDICINE [address] [place] [address] Social History Tobacco Use Types Packs/Day Years [...] Care Team (Late st Contact Info) Description 03/13/2025 9:45 AM EDT Office Visit [facility] CARDIOLOGY [address] [facility] [address] [address] Jimmy Duncan MD [address] [facility] [address] [place] [address] 06/26/2025 9:30 AM EST Procedure visit [facility] PULMONARY & CRITICAL CARE MEDICINE [address] [place] [address] 06/26/2025 10:00 AM EST Office Visit [facility] PULMONARY & CRITICAL CARE MEDICINE [address] [place] [address] Kaitlin Joiner, MANAGER BUSINESS OPERATIONS [address] [place] [address] documented as of this encounter Procedures Procedure [...] documented as of this encounter Care Teams Crop Insurance Claims Adjuster Relationship Specialty Start Date End Date Marc Rodriguez MD [address] [facility] [address] [place] [address] PCP - General Adolescent Medicine 12/08/16 documented as of this encounter
--- OUTSIDE RECORDS SUMMARY | 2018-08-16 11:42 | XMS_ITS | Encounter Summary ---
[facility] Address [address] [place] [address] Care Team Providers Care Aviation Engineer Name Role Phone Marc Rodriguez MD Primary Care Provider [phone] Encounter Details Date Type Department Care Team (Late st Contact Info) Description 08/16/2018 10:42 AM EST Hospital Encounter [facility] PULMONARY & CRITICAL CARE MEDICINE [facility] [place] [address] Social History Tobacco Use Types Packs/Day Years [...] Description 03/13/2025 9:45 AM EDT Office Visit [facility] CARDIOLOGY [address] [facility] [address] [phone] Jimmy Duncan MD [address] [facility] [address] [place] [address] 06/26/2025 9:30 AM EST Procedure visit [facility] PULMONARY & CRITICAL CARE MEDICINE [address] [place] [address] 06/26/2025 10:00 AM EST Office Visit [facility] PULMONARY & CRITICAL CARE MEDICINE [address] [place] [address] Kaitlin Joiner, SUPPLY CHAIN LOGISTICS MANAGER [address] [place] [address] documented as of this encounter Procedures Procedure [...] documented as of this encounter Care Teams Aviation Engineer Relationship Specialty Start Date End Date Marc Rodriguez MD [address] [facility] [address] [place] [address] PCP - General Adolescent Medicine 12/08/16 documented as of this encounter
--- OUTSIDE RECORDS SUMMARY | 2020-11-12 08:42 | XMS_ITS | Encounter Summary ---
[facility] Address [address] [place] [address] Care Team Providers Care Furniture Lumber Production Worker Name Role Phone Marc Rodriguez MD Primary Care Provider [phone] Encounter Details Date Type Department Care Team (Late st Contact Info) Description 11/12/2020 8:42 AM EDT Hospital Encounter [facility] PULMONARY & CRITICAL CARE MEDICINE [address] [place] [phone] Social History Tobacco Use Types Packs/Day Years [...] Description 03/13/2025 9:45 AM EDT Office Visit [facility] CARDIOLOGY [address] [facility] [address], [place] [address] Jimmy Duncan MD [address] [facility] [address] [place] [address] 06/26/2025 9:30 AM EST Procedure visit [facility] PULMONARY & CRITICAL CARE MEDICINE [address] [place] [address] 06/26/2025 10:00 AM EST Office Visit [facility] PULMONARY & CRITICAL CARE MEDICINE [address] [place] [address] RhysKaitlin obregon, AGRONOMY LOCATION MANAGER [address] [place] [address] documented as of this encounter Procedures Procedure [...] documented as of this encounter Care Teams Furniture Lumber Production Worker Relationship Specialty Start Date End Date Marc Rodriguez MD [facility] [address] [facility] [address] [place] [address] PCP - General Adolescent Medicine 12/08/16 documented as of this encounter
--- OUTSIDE RECORDS SUMMARY | 2022-07-11 14:36 | XMS_ITS | Encounter Summary ---
[facility] Address [address] [place] [address] Care Team Providers Care Appliance Parts Counter Clerk Name Role Phone Marc Rodriguez MD Primary Care Provider [phone] Encounter Details Date Type Department Care Team (Late st Contact Info) Description 07/11/2022 1:36 PM EST Hospital Encounter [facility] PULMONARY & CRITICAL CARE MEDICINE [address] [place] [address] Social History Tobacco Use Types Packs/Day Years [...] Description 03/13/2025 9:45 AM EDT Office Visit [facility] CARDIOLOGY [address] [facility] [address], [place] [address] Jimmy Duncan MD 3000 [facility] [address] [place] [address] 06/26/2025 9:30 AM EST Procedure visit [facility] PULMONARY & CRITICAL CARE MEDICINE [address] [place] [address] 06/26/2025 10:00 AM EST Office Visit [facility] PULMONARY & CRITICAL CARE MEDICINE [address] [place] [address] Rhys, Kaitlin Cat, DIGITAL SOLUTIONS ARCHITECT [address] [place] [address] documented as of this encounter Procedures Procedure [...] pneumothorax. No acute osseous findings. Procedure Note dEgardo Cash MD - 07/11/2022 DATE OF EXAM: [...] 5:50 PM by Edgardo Cash MD. Kaitlin Cat Joiner DIGITAL SOLUTIONS ARCHITECT IMG DIAGNOSTIC IMAGING ORDER JORDANA Final Result documented in this encounter Visit Diagnoses Not on filedocumented in this encounter Care Teams Appliance Parts Counter Clerk Relationship Specialty Start Date End Date Marc Rodriguez MD [facility] [place] [facility] [address] [place] [address] PCP - General Adolescent Medicine 12/08/16 documented as of this encounter
--- OUTSIDE RECORDS SUMMARY | 2022-08-27 09:46 | XMS_ITS | Encounter Summary ---
Author Organization [facility] Address [address] [place] [address] Care Team Providers Care Engagement Manager Name Role Phone Marc Rodriguez MD Primary Care Provider [phone] Encounter Details Date Type Department Care Team (Late Contact Info) Description 08/27/2022 8:46 AM EST Hospital Encounter [facility] PULMONARY & CRITICAL CARE MEDICINE [address] [place] [address] Social History Tobacco Use Types Packs/Day Years [...] Description 03/13/2025 9:45 AM EDT Office Visit [facility] CARDIOLOGY [address] [facility] [place] [place] [address] Jimmy Duncan MD [address] [facility] [address] [place] [address] 06/26/2025 9:30 AM EST Procedure visit [facility] PULMONARY & CRITICAL CARE MEDICINE [address] [place] [address] 06/26/2025 10:00 AM EST Office Visit [facility] PULMONARY & CRITICAL CARE MEDICINE [address] [place] [address] RhysKaitlin obregon, OUTSIDE PRODUCTION INSPECTOR [address] [place] [address] documented as of this encounter Procedures Procedure [...] Coleman 08/27/2022 1:30 PM EST Workstation ID: [id number] Narrative 08/27/2022 1:30 PM EST XR CHEST [...] Coleman 08/27/2022 1:30 PM EST Workstation ID: [id number] Kaitlin Joiner APRN IMG DIAGNOSTIC IMAGING ORDER JORDANA Final Result documented in this encounter Visit Diagnoses Not on filedocumented in this encounter Care Teams Engagement Manager Relationship Specialty Start Date End Date Marc Rodriguez MD [facility] [address] [address] PCP - General Adolescent Medicine 12/08/16 documented as of this encounter
--- OUTSIDE RECORDS SUMMARY | 2024-12-30 09:04 | XMS_ITS | Encounter Summary ---
Author Organization [facility] Address [address] [place] [address] Care Team Providers Care Quantitative Manager Name Role Phone Marc Rodriguez MD Primary Care Provider [phone] Encounter Details Date Type Department Care Team (Late Contact Info) Description 12/30/2024 9:04 AM EDT Hospital Encounter [facility] PULMONARY & CRITICAL CARE MEDICINE [address] [place] [phone] Social History Tobacco Use Types Packs/Day Years [...] 03/13/2025 9:45 AM EDT Office Visit [facility] CARDIOLOGY [address] [facility] [address], [place] [address] Jimmy Duncan MD [address] [facility] [address] [place] [address] 06/26/2025 9:30 AM EST Procedure visit [facility] PULMONARY & CRITICAL CARE MEDICINE [address] [place] [address] 06/26/2025 10:00 AM EST Office Visit [facility] PULMONARY & CRITICAL CARE MEDICINE [address] [place] [address] Kaitlin Joiner APRN [address] [place] [address] documented as of this encounter Procedures Procedure [...] MD 12/30/2024 9:27 AM EDT Workstation ID: [id number] Narrative 12/30/2024 9:27 AM EDT XR CHEST [...] MD 12/30/2024 9:27 AM EDT Workstation ID: [id number] Kaitlin Joiner APRN IMG DIAGNOSTIC IMAGING ORDER JORDANA Final Result documented in this encounter Visit Diagnoses Not on filedocumented in this encounter Care Teams Quantitative Manager Relationship Specialty Start Date End Date Marc Rodriguez MD 12[address] [facility] [address] [place] [id number] PCP - General Adolescent Medicine 12/08/16 documented as of this encounter
--- OUTSIDE RECORDS SUMMARY | 2025-03-08 08:36 | XMS_ITS | Encounter Summary ---
Author Organization [employer] ([place], [place], [place], [place]) Address [address] [place] [address] Care Team Providers Care Core Extruder Name Role Phone Unavailable Primary Care Provider Unavailabl e Encounter Details Date Type Department Care Team (Late st Contact Info) Description 07/25/2019 Transcribed Document [facility] [place] [address] [place] [address] ProviderSonia MD [address] [place], [place] [address] Social History Tobacco Use Types Packs/Day Years Used Date Smoking Tobacco: Never Assessed Comments Unknown Sex and Gender Information Value Date Recorded Sex Assigned at Not on file Legal Sex Female 1:42 PM CDT Gender Identity Not on file Sexual Orientation Not on file documented as of this encounter Miscellaneous Notes * Cerner Conversion Note - Sonia ProviderMD - 07/25/2019 5:00 PM PROGRAM DIRECTOR/AIR PERSONALITY Chart Check - Review Order Profile Entered On: 07/25/2019 16:29 EST Performed On: 07/25/2019 17:00 EST by Aimee Willis RN Chart Check Powerplans Initiated/Discontinued as Appropriate : Yes All Active Orders Reviewed : Yes Aimee Willis RN - 07/25/2019 16:29 EST Electronically signed by Raman [facility] Conversion Skip Pit Worker Cerner at 11/19/2022 8:46 PM CDT documented in this encounter Plan of Treatment Not on file documented as of this encounter Visit Diagnoses Not on filedocumented in this encounter
--- OUTSIDE RECORDS SUMMARY | 2025-03-08 08:36 | XMS_ITS | Encounter Summary ---
Author Organization [employer] ([place], [place], [place], [place]) Address [address] [place] [address] Care Team Providers Care Transmission Operator Name Role Phone Unavailable Primary Care Provider Unavailabl e Encounter Details Date Type Department Care Team (Late st Contact Info) Description 07/25/2019 Transcribed Document [facility] Radiology [address] [place] [address] Travis Schwartz MD [address] [place], [place] [id number] Social History Tobacco Use Types Packs/Day Years [...] Order- Vancomycin 1,500 Mg IV X 1 CDS/Chocolate Dipper Signature: Krystyna Gonzalez RN Phone #: [phone] This is a permanent part of the Medical Record Q54 2019 [facility] Updated: documented in this encounter Plan of Treatment Not on file documented as of this encounter Visit Diagnoses Not on filedocumented in this encounter
--- OUTSIDE RECORDS SUMMARY | 2025-03-08 08:36 | XMS_ITS | Encounter Summary ---
Author Organization [employer] ([place], [place], [place]) Address [address] [place] [address] Care Team Providers Care Break Out Worker Name Role Phone Unavailable Primary Care Provider Unavailabl e Encounter Details Date Type Department Care Team (Late st Contact Info) Description 07/25/2019 Transcribed Document [facility] [place] [address] [place] [address] ProviderSonia MD [address] [place] [address] Social History Tobacco Use Types Packs/Day Years Used Date Smoking Tobacco: Never Assessed Comments Unknown Sex and Gender Information Value Date Recorded Sex Assigned at Not on file Legal Sex Female 1:42 PM CDT Gender Identity Not on file Sexual Orientation Not on file documented as of this encounter Miscellaneous Notes * Cerner Conversion Note - Sonia ProviderMD - 07/25/2019 4:49 PM CYLINDER BATCHER Spiritual Care Short Form Entered On: 07/25/2019 22:21 EST Performed On: 07/25/2019 16:49 EST by Eligio Medina Chaplain-Loida Rene General Information, Spiritual Care Spiritual Care Referred by : follow-up Reason for Visit : Follow Up Ministry Provided to : Patient, Family/Significant other Intervention/Comment/Summary Points : Provided prayer with patient and pt's upon their request. Eligio Medina Chaplain-Non Ajnu - 07/25/2019 22:20 EST documented in this encounter Plan of Treatment Not on file documented as of this encounter Visit Diagnoses Not on filedocumented in this encounter
--- OUTSIDE RECORDS SUMMARY | 2025-03-08 08:36 | XMS_ITS | Encounter Summary ---
Author Organization [employer] ([place], [place], [place], [place]) Address [address] [place] [address] Care Team Providers Care Viner Operator Name Role Phone Unavailable Primary Care Provider Unavailabl e Encounter Details Date Type Department Care Team (Late st Contact Info) Description 07/25/2019 Transcribed Document [facility] [place] [facility] [place] [address] ProviderSonia MD [facility] [place], [place] [address] Social History Tobacco Use Types Packs/Day Years Used Date Smoking Tobacco: Never Assessed Comments Unknown Sex and Gender Information Value Date Recorded Sex Assigned at Not on file Legal Sex Female 1:42 PM CDT Gender Identity Not on file Sexual Orientation Not on file documented as of this encounter Miscellaneous Notes * Cerner Conversion Note - Sonia ProviderMD - 07/25/2019 6:00 AM DIGITAL COMPUTER SYSTEMS ANALYST Pain Assessment Entered On: 07/25/2019 6:35 EST [...]
--- OUTSIDE RECORDS SUMMARY | 2025-03-08 08:36 | XMS_ITS | Encounter Summary ---
Author Organization [employer] ([place], [place], [place], [place]) Address [address] [place] [address] Care Team Providers Care China Decorator Name Role Phone Unavailable Primary Care Provider Unavailabl e Encounter Details Date Type Department Care Team (Late st Contact Info) Description 07/25/2019 Transcribed Document [facility] [place] Family [place] [address] ProviderSonia MD [facility] [place], [place] [address] Social History Tobacco Use Types Packs/Day Years Used Date Smoking Tobacco: Never Assessed Comments Unknown Sex and Gender Information Value Date Recorded Sex Assigned at Not on file Legal Sex Female 1:42 PM CDT Gender Identity Not on file Sexual Orientation Not on file documented as of this encounter Miscellaneous Notes * Cerner Conversion Note - Sonia ProviderMD - 07/25/2019 3:14 PM QUALIFIED CRAFT WORKER ELECTRICIAN On Going Discharge Planning Entered On: 07/25/2019 15:17 EST Performed On: 07/25/2019 15:14 EST by NICHOLAS HOGUE, RN-Wood Fence ErectorAutomobile Insurance Claim Examiner Progress Note Discharge Arrangements : Patient Post-Acute Information Patient Name: SANDIE FRANK Gender: Female : 51 Age: 63 Years No Post-Acute Placement(s) Listed No Post-Acute Service(s) Listed No Curaspan Referral(s) Listed Discharge Options Discussed with Patient : Short term rehabilitation NICHOLAS HOGUE, RN-Wood Fence Erector - 07/25/2019 15:24 EST Narrative Progress Note Narrative Progress Note : JAS sent text to Catalina with [facility] this am requesting update on bed availability. She has the pt being reviewed by their physician. CM set ambulance tentatively for tomorrow at 1400. Awaiting word from [facility]. CM updated pt and family. Historical Progress Note : 07/24 met with mrs Frank and she is awake and les shaky today... States she wants to go to rehab for getting strength and balance .. Await [facility] ady ,, She 's had her 3 Midnight stay in hospital .... LAMBERT Steele, RN-Wood Fence Erector - 07/24/19 15:20:00 NICHOLAS HOGUE, RN-Wood Fence Erector - 07/25/2019 15:24 EST Electronically signed by Raman [facility] Conversion Posting Machine Operator Cerner at 11/19/2022 8:37 PM CDT documented in this encounter Plan of Treatment Not on file documented as of this encounter Visit Diagnoses Not on filedocumented in this encounter
--- OUTSIDE RECORDS SUMMARY | 2025-03-08 08:37 | XMS_ITS | Encounter Summary ---
Author Organization [employer] ([place], [place], [place], [place]) Address [address] [place] [address] Care Team Providers Care Strip Catcher Name Role Phone Unavailable Primary Care Provider Unavailabl e Encounter Details Date Type Department Care Team (Late st Contact Info) Description 08/01/2019 Transcribed Document [facility] [place] Family Medicine [facility] [place] [address] ProviderSonia MD [address] [place] [id number] Social History Tobacco Use Types Packs/Day Years Used Date Smoking Tobacco: Never Assessed Comments Unknown Sex and Gender Information Value Date Recorded Sex Assigned at Not on file Legal Sex Female 1:42 PM CDT Gender Identity Not on file Sexual Orientation Not on file documented as of this encounter Miscellaneous Notes * Cerner Conversion Note - Sonia ProviderMD - 08/01/2019 2:00 PM MBA INTERNSHIP Pain Assessment Entered On: 08/01/2019 15:47 EST [...] form. Electronically signed by Ivelisse Camargo Conversion Collating Machine Operator Cerner at 11/19/2022 8:24 PM CDT documented in this encounter Plan of Treatment Not on file documented as of this encounter Visit Diagnoses Not on filedocumented in this encounter
--- OUTSIDE RECORDS SUMMARY | 2025-03-08 08:37 | XMS_ITS | Encounter Summary ---
Author Organization [employer] ([place], [place], [place]) Address [address] [place] [address] Care Team Providers Care Flitch Hanger Name Role Phone Unavailable Primary Care Provider Unavailabl e Encounter Details Date Type Department Care Team (Late st Contact Info) Description 07/26/2019 Transcribed Document [facility] [place] [address] [place] [address] ProviderSonia MD [address] [place], [place] [address] Social History Tobacco Use Types Packs/Day Years Used Date Smoking Tobacco: Never Assessed Comments Unknown Sex and Gender Information Value Date Recorded Sex Assigned at Not on file Legal Sex Female 1:42 PM CDT Gender Identity Not on file Sexual Orientation Not on file documented as of this encounter Miscellaneous Notes * Cerner Conversion Note - Sonia Boogie MD - 07/26/2019 7:51 PM COOK HELPER MEAT Event Note Entered On: 07/26/2019 19:51 EST [...]
--- OUTSIDE RECORDS SUMMARY | 2025-03-08 08:37 | XMS_ITS | Encounter Summary ---
Author Organization [employer] ([place], [place], [place]) Address [address] [place] [address] Care Team Providers Care Umbrella Finisher Name Role Phone Unavailable Primary Care Provider Unavailabl e Encounter Details Date Type Department Care Team (Late st Contact Info) Description 07/24/2019 Transcribed Document [facility] [place] [address] [place] [address] ProviderSonia MD [address] [place], [place] [address] Social History Tobacco Use Types Packs/Day Years Used Date Smoking Tobacco: Never Assessed Comments Unknown Sex and Gender Information Value Date Recorded Sex Assigned at Not on file Legal Sex Female 1:42 PM CDT Gender Identity Not on file Sexual Orientation Not on file documented as of this encounter Miscellaneous Notes * Cerner Conversion Note - Sonia ProviderMD - 07/24/2019 2:00 PM CORE FILER Pain Assessment Entered On: 07/24/2019 14:29 EST [...]
--- OUTSIDE RECORDS SUMMARY | 2025-03-08 08:37 | XMS_ITS | Encounter Summary ---
Author Organization [employer] ([place], [place], [place], [place]) Address [address] [place] [address] Care Team Providers Care Box Inspector Name Role Phone Unavailable Primary Care Provider Unavailabl e Encounter Details Date Type Department Care Team (Late st Contact Info) Description 07/26/2019 Transcribed Document [facility] [place] Family Medicine [address] [place] [address] ProviderSonia MD [address] [place], [place] [address] Social History Tobacco Use Types Packs/Day Years Used Date Smoking Tobacco: Never Assessed Comments Unknown Sex and Gender Information Value Date Recorded Sex Assigned at Not on file Legal Sex Female 1:42 PM CDT Gender Identity Not on file Sexual Orientation Not on file documented as of this encounter Miscellaneous Notes * Cerner Conversion Note - Sonia ProviderMD - 07/26/2019 3:24 PM HAT STEAMER On Going Discharge Planning Entered On: 07/26/2019 15:40 EST Performed On: 07/26/2019 15:24 EST by NICHOLAS HOGUE, RN-Slp TeacherNuclear Medicine Officer Progress Note Discharge Arrangements : Patient Post-Acute Information Patient Name: SANDIE FRANK Gender: Female : 51 Age: 63 Years No Post-Acute Placement(s) Listed No Post-Acute Service(s) Listed No Curaspan Referral(s) Listed Discharge Options Discussed with Patient : Short term rehabilitation NICHOLAS HOGUE, RN-Slp Teacher - 07/26/2019 15:24 EST Narrative Progress Note Narrative Progress Note : Received call from Catalina pope MD at [facility] states the pt is declined for acute rehab and they are apprehensive about her coming to SRU due to her physical level of care. CM relayed this to the pt and spouse and they agree to have the pt referred to the following: [facility], [facility] and [facility]. CM will fu for possible offers. Med list sent to [facility] for review. Historical Progress Note : JAS sent text to Catalina with [facility] this am requesting update on bed availability. She has the pt being reviewed by their physician. CM set ambulance tentatively for tomorrow at 1400. Awaiting word from [facility]. NICHOLAS HOGUE, RN-Slp Teacher - 07/25/19 15:17:05 CM sent text to Catalina with [facility] this am requesting update on bed availability. She has the pt being reviewed by their physician. CM set ambulance tentatively for tomorrow at 1400. Awaiting word from [facility]. CM updated pt and family. NICHOLAS HOGUE, RN-Slp Teacher - 07/25/19 15:24:48 07/24 met with mrs Frank and she is awake and les shaky today... States she wants to go to rehab for getting strength and balance .. Await [facility] eval ,, She 's had her 3 Midnight stay in hospital .... LAMBERT Steele, RN-Slp Teacher - 07/24/19 15:20:00 NICHOLAS HOGUE, RN-Slp Teacher - 07/26/2019 15:24 EST Electronically signed by [facility] Conversion Bill Cutter Cerner at 11/19/2022 8:24 PM CDT documented in this encounter Plan of Treatment Not on file documented as of this encounter Visit Diagnoses Not on filedocumented in this encounter
--- OUTSIDE RECORDS SUMMARY | 2025-03-08 08:37 | XMS_ITS | Encounter Summary ---
Author Organization Healthcare Address [address] [place] [address] Care Team Providers Care Electro Optics Engineer Name Role Phone Marc Rodriguez MD Primary Care Provider [phone] Edgardo Zuñiga MD Unavailable [phone] Giulia Briggs Unavailable [phone] Edgardo Zuñiga MD Unavailable [phone] Esther Mathew Unavailable [phone] Encounter Details Date Type Department Care Team (Late st Contact Info) Description 03/07/2025 Orders Only [place] [facility] [address] [place] [address] Edgardo Zuñiga MD [address] [place] [address] S/P lumbar fusion (Primary Dx) Social History Tobacco Use Types Packs/Day Years [...] place to sleep or slept in a correction (including now)? No 05/13/2024 PHQ-9 Answer Date Recorded Patient Health Questionnaire-9 Score 0 07/05/2024 Utilities Answer Date Recorded In the past 12 months has th e [employer], gas, oil, or water [employer] threatened to shut off services in your [...] Care Team (Late st Contact Info) Description 03/08/2025 1:40 PM EDT Office Visit [facility] Orthopaedic Surgery & Sports Medicine [address] [place] [address] Edgardo Zuñiga MD [address] [place] [address] 03/09/2025 1:20 PM EDT Office Visit [facility] [address] [place] [address] Suzan Galindo DO [address] [place] [address] Scheduled Orders Name Type Priority Associated Diagnoses Orde r Schedule XR Lumbar Spine 4+ Views w Flexion Extension Imaging Routine S/P lumbar fusion Expected: 03/07/2025 (Approximate), Expires: 09/08/2026 documented as of this encounter Visit Diagnoses Diagnosis S/P lumbar fusion- Primary Arthrodesis status documented in this encounter Additional Health Concerns Assessment Noted Time PHQ-9 Depression Total Score: 0 07/05/20 24 10:01 AM EST A fall risk assessment has been complete d for the patient 12/07/2024 12:51 PM EDT A Body Mass Index follow-up plan has been documented for the patient 12/07/2024 1:23 PM EDT documented as of this encounter Care Teams Electro Optics Engineer Relationship Specialty Start Date End Date Marc Rodriguez MD [address] [place] [address] PCP - General 12/14/20 Edgardo Zuñiga MD [address] [place] [address] Surgeon Neurosurgery 03/04/21 Giulia Briggs PA [address] [place] [address] Physician [facility] Neurosurgery 07/03/21 Edgardo Zuñiga MD [address] [address] Surgeon Neurosurgery 09/16/21 Esther Mathew PA [address] [address] Physician [facility] Neurology 11/19/22 documented as of this encounter
--- OUTSIDE RECORDS SUMMARY | 2025-03-08 08:37 | XMS_ITS | Encounter Summary ---
[facility] Address [address] [place] [address] Care Team Providers Care Procurement Forester Name Role Phone Marc Rodriguez MD Primary Care Provider [phone] Encounter Details Date Type Department Care Team (Late Contact Info) Description 06/23/2019 External CPT II INVESTMENT MANAGER - [facility] Social History Tobacco Use Types Packs/Day Years [...] Department Care Team (Late Contact Info) Description 03/13/2025 9:45 AM EDT Office Visit [facility] CARDIOLOGY [address] [facility] [address], [place] [address] Jimmy Duncan MD [address] [facility] [address] [place] [address] 06/26/2025 9:30 AM EST Procedure visit [facility] PULMONARY & CRITICAL CARE MEDICINE [address] [place] [address] 06/26/2025 10:00 AM EST Office Visit [facility] PULMONARY & CRITICAL CARE MEDICINE [address] [place] [address] Kaitlin Joiner APRN [address] [place] [address] documented as of this encounter Visit Diagnoses [...] documented as of this encounter Care Teams Procurement Forester Relationship Specialty Start Date End Date Marc Rodriguez MD [address] [facility] [address] [facility] [place] [address] PCP - General Adolescent Medicine 12/08/16 documented as of this encounter
--- OUTSIDE RECORDS SUMMARY | 2025-03-08 08:37 | XMS_ITS | Encounter Summary ---
Author Organization [employer] ([place], [place], [place], [place]) Address [address] [place] [address] Care Team Providers Care Grinding And Polishing Laborer Name Role Phone Unavailable Primary Care Provider Unavailabl e Encounter Details Date Type Department Care Team (Late st Contact Info) Description 07/27/2019 Transcribed Document [facility] Radiology [address] [place] [address] Travis Robles MD [address] [place], [place] [address] Social History Tobacco Use Types Packs/Day Years [...] with physical therapy with the , nurse, caser shoe parts all the bedside. She look like she is about to fallout ofthe bed. The patient's was asking about taking her home. He wanted to know if Dr. Patrick Knutson M.D. with orthopedic surgery actually goes to see patients at the [facility] That he does not go to the [facility] although 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 Physical therapy strongly agreed that he needs to go to inpatient rehabilitation either [facility] are at the [facility]. No fevers or chills. No nausea vomiting. [...] penitentiary facility. Patient's nurse and the patient's caser shoe parts who saw her upstairs saw her again [...] at the bedside as well as the caser shoe parts. They're looking at placement options. Apparently wanted facilities turn her down because of Lunesta apparently it's expensive medication and then there is a inhaler that she was getting that was expensive. I told her that we could probably find more affordable alternatives at least while she is in the penitentiary facility if necessary. Saturday, July 27, 2019. [...] list: Medical Adrenal insufficiency / SNOMED CT 2680785267 / Confirmed Aortic valve stenosis / SNOMED CT 464542279 / Confirmed Arthritis / SNOMED CT 0251018 / Confirmed Asthma / SNOMED CT 729906111 / Confirmed At risk for sleep apnea / IMO [id number] / Confirmed Cataracts, both eyes / SNOMED CT 343062273 / Confirmed chronic back pain / SNOMED CT 937610369 / Confirmed chronic diarrhea / SNOMED CT 351996887 / Confirmed Chronic kidney disease / SNOMED CT 3555946560 / Confirmed B12 deficiency / SNOMED CT 764225856 / Confirmed Dementia / SNOMED CT 16542957 / Confirmed depression / SNOMED CT 36496825 / Confirmed uses Renexa / SNOMED CT 6958379 / Confirmed chronic hydrocort use / SNOMED CT 4435460 / Confirmed peripheral neuropathy / SNOMED CT 81988984 / Confirmed GERD / SNOMED CT 323152567 / Confirmed fibromyalgia / SNOMED CT 96590259 / Confirmed Glaucoma / SNOMED CT 35284030 / Confirmed migraine headaches / SNOMED CT 846012559 / Confirmed hx cataract surgery bilateral / SNOMED CT 4401253870 / Confirmed hx. chest pain / SNOMED CT 9950314110 / Confirmed hx colon resection secondary decreased function / SNOMED CT 0979687362 / Confirmed hx. frequent UTIs / SNOMED CT 8363323084 / Confirmed high cholesterol / SNOMED CT 92429086 / Confirmed high blood pressure / SNOMED CT 6167450045 / Confirmed Hypothyroidism / SNOMED CT 22556408 / Confirmed kidney stone right kidney current and hx / SNOMED CT 098870973 / Confirmed Osteoporosis / SNOMED CT 126398545 / Confirmed Pneumonia / SNOMED CT 151126877 / Confirmed restless leg syndrome / SNOMED CT 02191580 / Confirmed rheumatoid arthritis / SNOMED CT 263414811 / Confirmed Seasonal allergies / SNOMED CT 1099530136 / Confirmed Vitamin D deficiency / SNOMED CT 21377131 / Confirmed Resolved: Hypotension / SNOMED CT 36396360 Canceled: adrenal insufficiency / SNOMED CT 4493659192 Canceled: Hyperthyroidism / SNOMED CT [id number], Active Problems (33) Adrenal insufficiency Aortic valve [...] mg, Rectal, 1-Time, PRN: Constipation Flonase: 1 Spivey, Nostrils Both, BID Florastor: 250 mg, Oral, [...] intl units oral capsule: 1 Cap, Oral, [id number], 0 Refill(s) Dilaudid: pain pump, 0 Refill(s) Flax Seed Oil: 1,200 mg, Oral, BID, 0 Refill(s) Flonase: 1 Spivey, Nostrils Both, BID Lunesta: 3 mg, Oral, [...] azelastine 205.5 mcg/inh (0.15%) nasal spray: 2 Spivey, Nasal, BID, PRN: for allergy symptoms, 0 [...] azelastine 205.5 mcg/inh (0.15%) nasal spray 2 Spivey, PRN, Nasal, BID biotin 5 mg, Oral, [...] 50,000 Int Units = 1 Cap, Oral, [id number] Dilaudid donepezil 23 mg, Oral, Daily famotidine 40 mg, Oral, BID Flax Seed Oil 1,200 mg, Oral, BID Flonase 1 Spivey, Nostrils Both, BID gabapentin 100 mg oral [...] Oral, QAM fluticasone 0.05% nasal spray 1 Spivey, Nostrils Both, BID gabapentin 100 mg cap [...] is obese and debilitated, her , nurse, caser shoe parts THE bedside. The really voiced some interest [...] the afternoon. The patient's nurse and her caser shoe parts who saw her yesterday at the bedside [...] 8.5, creatinine screw 0.9. PATIENT, her , caser shoe parts. She was turned down by the [facility] because she's on some expensive medications including [...] gets a bed at a rehabilitation facility. Léa et Léo dictation system used. Computer program makes numerous spelling grammar mistakes. If you have any questions or concerns do not hesitate call Dr. Travis Lux at cell phone number [phone]. documented in this encounter Plan of Treatment Not on file documented as of this encounter Visit Diagnoses Not on filedocumented in this encounter
--- OUTSIDE RECORDS SUMMARY | 2025-03-08 08:37 | XMS_ITS | Encounter Summary ---
Author Organization [employer] ([place], [place], [place], [place]) Address [address] [place] [address] Care Team Providers Care Social Secretary Name Role Phone Unavailable Primary Care Provider Unavailabl e Encounter Details Date Type Department Care Team (Late st Contact Info) Description 07/27/2019 Transcribed Document [facility] Family Medicine [facility] [place] [address] ProviderSonia MD [facility] [place], [place] [address] Social History Tobacco Use Types Packs/Day Years Used Date Smoking Tobacco: Never Assessed Comments Unknown Sex and Gender Information Value Date Recorded Sex Assigned at Not on file Legal Sex Female 1:42 PM CDT Gender Identity Not on file Sexual Orientation Not on file documented as of this encounter Miscellaneous Notes * [employer]ner Conversion Note - Sonia ProviderMD - 07/27/2019 2:00 PM FINANCIAL SERVICES SPECIALIST Pain Assessment Entered On: 07/27/2019 16:45 EST [...]
--- OUTSIDE RECORDS SUMMARY | 2025-03-08 08:37 | XMS_ITS | Encounter Summary ---
[facility] Address [address] [place] [address] Care Team Providers Care Volunteer Services Assistant Name Role Phone Marc Rodriguez MD Primary Care Provider [phone] Encounter Details Date Type Department Care Team (Late Contact Info) Description 05/17/2019 External CPT II SWIMMER - [facility] Social History Tobacco Use [...] Description 03/13/2025 9:45 AM EDT Office Visit [facility] CARDIOLOGY [address] [facility] [address], [place] [address] Jimmy Duncan MD [address] [facility] [address] [place] [address] 06/26/2025 9:30 AM EST Procedure visit [facility] PULMONARY & CRITICAL CARE MEDICINE [address] [place] [address] 06/26/2025 10:00 AM EST Office Visit [facility] PULMONARY & CRITICAL CARE MEDICINE [address] [place] [address] Kaitlin Joiner APRN [address] [place] [address] documented as of this encounter Visit Diagnoses [...] documented as of this encounter Care Teams Volunteer Services Assistant Relationship Specialty Start Date End Date Marc Rodriguez MD [address] [facility] [address] [place] [address] PCP - General Adolescent Medicine 12/08/16 documented as of this encounter
--- OUTSIDE RECORDS SUMMARY | 2025-03-08 08:37 | XMS_ITS | Encounter Summary ---
Author Organization [employer] ([place], [place], [place]) Address [address] [place] [address] Care Team Providers Care Diagnostic Technologist Name Role Phone Unavailable Primary Care Provider Unavailabl e Encounter Details Date Type Department Care Team (Late st Contact Info) Description 07/24/2019 Transcribed Document [facility] [facility] [place] [address] [place] [address] ProviderSonia MD [address] [place], [place] [address] Social History Tobacco Use Types Packs/Day Years Used Date Smoking Tobacco: Never Assessed Comments Unknown Sex and Gender Information Value Date Recorded Sex Assigned at Not on file Legal Sex Female 1:42 PM CDT Gender Identity Not on file Sexual Orientation Not on file documented as of this encounter Miscellaneous Notes * [employer]ner Conversion Note - Historical ProviderMD - 07/24/2019 2:00 AM ASSISTANT PROFESSOR OF MUSIC Percussion Welding Machine Operator Details Entered On: 07/24/2019 2:22 EST Performed [...] Mayra Gibson, RN - 07/24/2019 2:21 EST Electronically signed by Raman [facility] Conversion Media Account Executive Cerner at 11/19/2022 8:28 PM CDT documented in this encounter Plan of Treatment Not on file documented as of this encounter Visit Diagnoses Not on filedocumented in this encounter
--- OUTSIDE RECORDS SUMMARY | 2025-03-08 08:37 | XMS_ITS | Encounter Summary ---
Author Organization [employer] ([place]) Address [address] [place] [address] Care Team Providers Care Railroad Car Truck Builder Name Role Phone Unavailable Primary Care Provider Unavailabl e Encounter Details Date Type Department Care Team (Late st Contact Info) Description 07/26/2019 Transcribed Document [facility] [place] Family Medicine [address] [place] [address] ProviderSonia MD [address] [place], [place] [address] Social History Tobacco Use Types Packs/Day Years Used Date Smoking Tobacco: Never Assessed Comments Unknown Sex and Gender Information Value Date Recorded Sex Assigned at Not on file Legal Sex Female 1:42 PM CDT Gender Identity Not on file Sexual Orientation Not on file documented as of this encounter Miscellaneous Notes * [employer]ner Conversion Note - Historical ProviderMD - 07/26/2019 2:00 AM CONSUMER INSIGHTS INTERN Reinforced Concrete Inspector Details Entered On: 07/26/2019 4:47 EST Performed [...] Barrington Roberts RN - 07/26/2019 4:46 EST documented in this encounter Plan of Treatment Not on file documented as of this encounter Visit Diagnoses Not on filedocumented in this encounter
--- OUTSIDE RECORDS SUMMARY | 2025-03-08 08:37 | XMS_ITS | Encounter Summary ---
Author Organization [employer] ([place], [place], [place], [place]) Address [address] [place] [address] Care Team Providers Care Oil Rigger Name Role Phone Unavailable Primary Care Provider Unavailabl e Encounter Details Date Type Department Care Team (Late st Contact Info) Description 07/24/2019 Transcribed Document [facility] [place] Family Medicine [facility] [place] [address] ProviderSonia MD [address] [place] [address] [id number] Social History Tobacco Use Types Packs/Day Years Used Date Smoking Tobacco: Never Assessed Comments Unknown Sex and Gender Information Value Date Recorded Sex Assigned at Not on file Legal Sex Female 1:42 PM CDT Gender Identity Not on file Sexual Orientation Not on file documented as of this encounter Miscellaneous Notes * Cerner Conversion Note - Sonia ProviderMD - 07/24/2019 8:49 AM QUALITY ASSURANCE SUPERVISOR TRIM Patient: SANDIE FRANK Age: 63 Years Sex: [...] azelastine 137 mcg/inh (0.1%) nasal spray, 2 [place], Nasal, BID, PRN Benadryl, 25 mg= 1 [...] No 07/24/2019 03:41 EST Electronically signed by [facility], [facility] Conversion Body Corporate Manager Cerner at 11/19/2022 8:35 PM CDT documented in this encounter Plan of Treatment Not on file documented as of this encounter Visit Diagnoses Not on filedocumented in this encounter
--- OUTSIDE RECORDS SUMMARY | 2025-03-08 08:37 | XMS_ITS | Encounter Summary ---
Author Organization [employer] ([place], [place], [place], [place]) Address [address] [place] [address] Care Team Providers Care Product Evangelist Name Role Phone Unavailable Primary Care Provider Unavailabl e Encounter Details Date Type Department Care Team (Late st Contact Info) Description 07/24/2019 Transcribed Document 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 Physical therapy strongly agreed that he needs to go to inpatient rehabilitation either [facility] are at the [facility]. No fevers or chills. No nausea vomiting. [...] She is still agree[place] [facility]. Patient's nurse and the patient's spring [...] list: Medical Adrenal insufficiency / SNOMED CT 3964344302 / Confirmed Aortic valve stenosis / SNOMED CT 040903711 / Confirmed Arthritis / SNOMED CT 3546915 / Confirmed Asthma / SNOMED CT 509713369 / Confirmed At risk for sleep apnea / IMO [id number] / Confirmed Cataracts, both eyes / SNOMED CT 926610971 / Confirmed chronic back pain / SNOMED CT 298779564 / Confirmed chronic diarrhea / SNOMED CT 442945126 / Confirmed Chronic kidney disease / SNOMED CT 0388687591 / Confirmed B12 deficiency / SNOMED CT 140596752 / Confirmed Dementia / SNOMED CT 44435010 / Confirmed depression / SNOMED CT 57030996 / Confirmed uses Renexa / SNOMED CT 2262540 / Confirmed chronic hydrocort use / SNOMED CT 6284603 / Confirmed peripheral neuropathy / SNOMED CT 66870683 / Confirmed GERD / SNOMED CT 366614627 / Confirmed fibromyalgia / SNOMED CT 91214193 / Confirmed Glaucoma / SNOMED CT 59055331 / Confirmed migraine headaches / SNOMED CT 558430347 / Confirmed hx cataract surgery bilateral / SNOMED CT 6624015131 / Confirmed hx. chest pain / SNOMED CT 1448929357 / Confirmed hx colon resection secondary decreased function / SNOMED CT 5351133574 / Confirmed hx. frequent UTIs / SNOMED CT 8082802909 / Confirmed high cholesterol / SNOMED CT 05661032 / Confirmed high blood pressure / SNOMED CT 3508552618 / Confirmed Hypothyroidism / SNOMED CT 21569216 / Confirmed kidney stone right kidney current and hx / SNOMED CT 040447082 / Confirmed Osteoporosis / SNOMED CT 955689852 / Confirmed Pneumonia / SNOMED CT 972378538 / Confirmed restless leg syndrome / SNOMED CT 59481847 / Confirmed rheumatoid arthritis / SNOMED CT 650123484 / Confirmed Seasonal allergies / SNOMED CT 7660084630 / Confirmed Vitamin D deficiency / SNOMED CT 33754964 / Confirmed Resolved: Hypotension / SNOMED CT 02767086 Canceled: adrenal insufficiency / SNOMED CT 1042130572 Canceled: Hyperthyroidism / SNOMED CT 17443DUL-[id number], Active Problems (33) Adrenal insufficiency Aortic valve [...] azelastine 137 mcg/inh (0.1%) nasal spray: 2 [place], Nasal, BID, PRN: Allergies budesonide: 0.5 mg, [...] intl units oral capsule: 1 Cap, Oral, [id number], 0 Refill(s) Dilaudid: pain pump, 0 Refill(s) Flax Seed Oil: 1,200 mg, Oral, BID, 0 Refill(s) Flonase: 1 [place], Nostrils Both, BID Lunesta: 3 mg, Oral, [...] azelastine 205.5 mcg/inh (0.15%) nasal spray: 2 [place], Nasal, BID, PRN: for allergy symptoms, 0 [...] azelastine 205.5 mcg/inh (0.15%) nasal spray 2 [place], PRN, Nasal, BID biotin 5 mg, Oral, [...] 50,000 Int Units = 1 Cap, Oral, Q9Pasxa Dilaudid donepezil 23 mg, Oral, Daily famotidine 40 mg, Oral, BID Flax Seed Oil 1,200 mg, Oral, BID Flonase 1 [place], Nostrils Both, BID gabapentin 100 mg oral [...] azelastine 137 mcg/spray nasal 30 mL 2 [place], Nasal, BID bisacodyl 10 mg supp 10 [...] SBP 109 (JUL 24 09:36) 102 (JUL 24:) H 151 (JUL 23 23:51) DBP L 48 (JUL 24:36) L 42 (JUL 24 06:31) 77 (JUL 23 21:31) MAP 62 (JUL 24 09:36) 57 (JUL 24 06:31) 86 (JUL 23:31) SpO2 L 93 (JUL 24:36) L 91 (JUL 24:) 95 (JUL 23 18:45) Physical Examination VS/Measurements Vitals Signs (last 24 hrs) Last Charted Minimum Maximum Temp 98 (JUL 24 09:36) 97.7 (JUL 24 06:31) 98 (JUL 23 18:45) Apical HR 80 (JUL 23 20:33) 80 (JUL 23 20:33) 80 (JUL 23 20:33) Mon HR 77 (JUL 24 12:26) 65 (JUL 24 06:31) 90 (JUL 23 16:56) Resp Rate 17 (JUL 24 09:36) 14 (JUL 24:31) 17 (JUL 24 09:36) SBP 109 (JUL 24 09:36) 102 (JUL 24 06:31) H 151 (JUL 23 23:51) DBP L 48 (JUL 24 09:36) L 42 (JUL 24:31) 77 (JUL 23 21:31) MAP 62 (JUL 24 09:36) 57 (JUL 24:31) 86 (JUL 23:31) SpO2 L 93 (JUL [...] likely need it. Hemoglobin 9.5, creatinine 0.9. Thursday, July 24, 2019. 25 minutes spent on [...] concur that she would benefit from [place]term [place] [facility] placement given her right hip replacement. Explained to the patient that if she were to go home and fall could be life ending situation. Recheck a CBC and basic metabolic profile in the morning. [email or web address] dictation system used. Computer program makes numerous spelling grammar mistakes. If you have any questions or concerns do not hesitate call Dr. Travis Lux at cell phone number [phone]. documented in this encounter Plan of Treatment Not on file documented as of this encounter Visit Diagnoses Not on filedocumented in this encounter
--- OUTSIDE RECORDS SUMMARY | 2025-03-08 08:37 | XMS_ITS | Encounter Summary ---
Author Organization [employer] ([place], [place], [place], [place]) Address [address] [place] [address] Care Team Providers Care School Standards Coach Name Role Phone Unavailable Primary Care Provider Unavailabl e Encounter Details Date Type Department Care Team (Late st Contact Info) Description 07/24/2019 Transcribed Document [facility] [place] [address] ProviderSonia MD [address] [place], [place] [id number] Social History Tobacco Use Types Packs/Day Years Used Date Smoking Tobacco: Never Assessed Comments Unknown Sex and Gender Information Value Date Recorded Sex Assigned at Not on file Legal Sex Female 1:42 PM CDT Gender Identity Not on file Sexual Orientation Not on file documented as of this encounter Miscellaneous Notes * Cerner Conversion Note - Sonia ProviderMD - 07/24/2019 3:17 PM CERTIFIED SURGICAL TECHNOLOGIST On Going Discharge Planning Entered On: 07/24/2019 15:20 EST Performed On: 07/24/2019 15:17 EST by LAMBERT HERNANDEZ, RN-Glass TechnologistTelegraph Operator Progress Note Discharge Arrangements : Patient Post-Acute Information Patient Name: SANDIE FRANK Gender: Female : 51 Age: 63 Years No Post-Acute Placement(s) Listed No Post-Acute Service(s) Listed No [place] Referral(s) Listed Discharge Options Discussed with Patient : DME, Home Health, Short term rehabilitation LAMBERT HERNANDEZ, RN-Glass Technologist - 07/24/2019 15:17 EST Narrative Progress Note Narrative Progress Note : 07/[address] Frank and she is awake and les shaky today... States she wants to go to rehab for getting strength and balance .. Await JUAN garsia ,, She 's had her 3 Midnight stay in hospital .... LAMBERT Steele, RN-Glass Technologist - 07/24/2019 15:17 EST Electronically signed by [facility], [facility] Conversion Clerical And Administrative Workers Cerner at 11/19/2022 8:25 PM CDT documented in this encounter Plan of Treatment Not on file documented as of this encounter Visit Diagnoses Not on filedocumented in this encounter
--- OUTSIDE RECORDS SUMMARY | 2025-03-08 08:37 | XMS_ITS | Encounter Summary ---
Author Organization [employer] ([place], [place], [place], [place]) Address [address] [place] [address] Care Team Providers Care Purification Operator Helper Name Role Phone Unavailable Primary Care Provider Unavailabl e Encounter Details Date Type Department Care Team (Late st Contact Info) Description 07/26/2019 Transcribed Document [facility] Radiology 1 [place] [address] Travis Robles MD [address] [place], [place] [id number] Social History Tobacco Use Types Packs/Day Years [...] with physical therapy with the , nurse, employment evaluator/case manager all the bedside. She look like she is about to fallout ofthe bed. The patient's was asking about taking her home. He wanted to know if Dr. Patrick Knutson M.D. 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 Physical therapy strongly agreed that he needs to go to inpatient rehabilitation either [facility] are at the [facility]. No fevers or chills. No nausea vomiting. [...] She is still agreeable to going to prison facility. Patient's nurse and the patient's employment evaluator/case manager who saw her upstairs saw her again [...] at the bedside as well as the employment evaluator/case manager. They're looking at placement options. Apparently wanted facilities turn her down because of Lunesta apparently it's expensive medication and then there is a inhaler that she was getting that was expensive. I told her that we could probably find more affordable alternatives at least while she is in the prison facility if necessary. Review of Systems Constitutional: [...] list: Medical Adrenal insufficiency / SNOMED CT 5980015480 / Confirmed Aortic valve stenosis / SNOMED CT 464740715 / Confirmed Arthritis / SNOMED CT 8556371 / Confirmed Asthma / SNOMED CT 345345336 / Confirmed At risk for sleep apnea / IMO 27867934 / Confirmed Cataracts, both eyes / SNOMED CT 959015138 / Confirmed chronic back pain / SNOMED CT 759282662 / Confirmed chronic diarrhea / SNOMED CT 305681366 / Confirmed Chronic kidney disease / SNOMED CT 7436751918 / Confirmed B12 deficiency / SNOMED CT 391260995 / Confirmed Dementia / SNOMED CT 84835322 / Confirmed depression / SNOMED CT 76638477 / Confirmed uses Renexa / SNOMED CT 0677619 / Confirmed chronic hydrocort use / SNOMED CT 9928686 / Confirmed peripheral neuropathy / SNOMED CT 90157076 / Confirmed GERD / SNOMED CT 712186214 / Confirmed fibromyalgia / SNOMED CT 47585500 / Confirmed Glaucoma / SNOMED CT 74650574 / Confirmed migraine headaches / SNOMED CT 034325524 / Confirmed hx cataract surgery bilateral / SNOMED CT 2015962916 / Confirmed hx. chest pain / SNOMED CT 2747067641 / Confirmed hx colon resection secondary decreased function / SNOMED CT 0379119694 / Confirmed hx. frequent UTIs / SNOMED CT 7878247372 / Confirmed high cholesterol / SNOMED CT 64493938 / Confirmed high blood pressure / SNOMED CT 4350149795 / Confirmed Hypothyroidism / SNOMED CT 58268054 / Confirmed kidney stone right kidney current and hx / SNOMED CT 508332101 / Confirmed Osteoporosis / SNOMED CT 287145173 / Confirmed Pneumonia / SNOMED CT 523263162 / Confirmed restless leg syndrome / SNOMED CT 34379597 / Confirmed rheumatoid arthritis / SNOMED CT 429833684 / Confirmed Seasonal allergies / SNOMED CT 5896357318 / Confirmed Vitamin D deficiency / SNOMED CT 57629353 / Confirmed Resolved: Hypotension / SNOMED CT 99700057 Canceled: adrenal insufficiency / SNOMED CT 2630355866 Canceled: Hyperthyroidism / SNOMED CT 20227YIU-[id number], Active Problems (33) Adrenal insufficiency Aortic valve [...] mg, Rectal, 1-Time, PRN: Constipation Flonase: 1 [place], Nostrils Both, BID Florastor: 250 mg, Oral, [...] intl units oral capsule: 1 Cap, Oral, [id number], 0 Refill(s) Dilaudid: pain pump, 0 Refill(s) Flax Seed Oil: 1,200 mg, Oral, BID, 0 Refill(s) Flonase: 1 [place], Nostrils Both, BID Lunesta: 3 mg, Oral, [...] azelastine 205.5 mcg/inh (0.15%) nasal spray: 2 [place], Nasal, BID, PRN: for allergy symptoms, 0 [...] azelastine 205.5 mcg/inh (0.15%) nasal spray 2 [place], PRN, Nasal, BID biotin 5 mg, Oral, [...] 50,000 Int Units = 1 Cap, Oral, B9Gigbr Dilaudid donepezil 23 mg, Oral, Daily famotidine 40 mg, Oral, BID Flax Seed Oil 1,200 mg, Oral, BID Flonase 1 [place], Nostrils Both, BID gabapentin 100 mg oral [...] Oral, QAM fluticasone 0.05% nasal spray 1 [place], Nostrils Both, BID gabapentin 100 mg cap [...] is obese and debilitated, her , nurse, employment evaluator/case manager THE bedside. The really voiced some [...] the afternoon. The patient's nurse and her employment evaluator/case manager who saw her yesterday at the bedside and we'll concur that she would benefit from short-term prison facility placement given her right hip replacement. [...] 8.5, creatinine screw 0.9. PATIENT, her , employment evaluator/case manager. She was turned down by the [facility] because she's on some expensive medications including [...] but more affordable for the rehabilitation facility. [email or web address]. dictation system used. Computer program makes numerous spelling grammar mistakes. If you have any questions or concerns do not hesitate call Dr. Travis Lux at cell phone number [phone]. documented in this encounter Plan of Treatment Not on file documented as of this encounter Visit Diagnoses Not on filedocumented in this encounter
--- OUTSIDE RECORDS SUMMARY | 2025-03-08 08:37 | XMS_ITS | Encounter Summary ---
Author Organization [employer] ([place], [place], [place], [place]) Address [address] [place] [address] Care Team Providers Care Tabulating Clerk Name Role Phone Unavailable Primary Care Provider Unavailabl e Encounter Details Date Type Department Care Team (Late st Contact Info) Description 07/22/2019 Transcribed Document [facility] Family Medicine [facility] [place] [address] ProviderSonia MD [address] [place] [phone] Social History Tobacco Use Types Packs/Day Years Used Date Smoking Tobacco: Never Assessed Comments Unknown Sex and Gender Information Value Date Recorded Sex Assigned at Not on file Legal Sex Female 1:42 PM CDT Gender Identity Not on file Sexual Orientation Not on file documented as of this encounter Miscellaneous Notes * Cerner Conversion Note - Sonia Boogie MD - 07/22/2019 11:20 AM SHOOTER'S HELPER Pain Assessment Entered On: 07/28/2019 9:52 EST [...]
--- OUTSIDE RECORDS SUMMARY | 2025-03-08 08:37 | XMS_ITS | Encounter Summary ---
Author Organization [employer] ([place], [place], [place], [place]) Address [address] [place] [address] Care Team Providers Care Green Chainer Name Role Phone Unavailable Primary Care Provider Unavailabl e Encounter Details Date Type Department Care Team (Late st Contact Info) Description 07/25/2019 Transcribed Document [facility] [place] [address] [place] [address] ProviderSonia MD [address] [place], [place] [address] Social History Tobacco Use Types Packs/Day Years Used Date Smoking Tobacco: Never Assessed Comments Unknown Sex and Gender Information Value Date Recorded Sex Assigned at Not on file Legal Sex Female 1:42 PM CDT Gender Identity Not on file Sexual Orientation Not on file documented as of this encounter Miscellaneous Notes * Cerner Conversion Note - Historical ProviderMD - 07/25/2019 2:00 AM AUTOMOTIVE LIGHT MECHANIC Stud Driver Details Entered On: 07/25/2019 2:08 EST Performed [...]
--- OUTSIDE RECORDS SUMMARY | 2025-03-08 08:37 | XMS_ITS | Encounter Summary ---
[facility] Address [address] [place] [address] Care Team Providers Care Secondary Social Studies Teacher Name Role Phone Marc Rodriguez MD Primary Care Provider [phone] Encounter Details Date Type Department Care Team (Late Contact Info) Description 07/15/2019 External CPT II RENTAL SALES ASSOCIATE - [employer] Social History Tobacco Use [...] Office Visit [facility] CARDIOLOGY [address] [facility] [address] [address] Jimmy Duncan MD [address] [facility] [address] [place] [address] 06/26/2025 9:30 AM EST Procedure visit [facility] PULMONARY & CRITICAL CARE MEDICINE [address] [place] [address] 06/26/2025 10:00 AM EST Office Visit [facility]UL[facility] MEDICINE [address] [place] [address] Kaitlin Joiner APRN [address] [place] [address] documented as of this encounter Visit Diagnoses [...] documented as of this encounter Care Teams Secondary Social Studies Teacher Relationship Specialty Start Date End Date Marc Rodriguez MD [address] [facility] [address] [place] [address] PCP - General Adolescent Medicine 12/08/16 documented as of this encounter
--- OUTSIDE RECORDS SUMMARY | 2025-03-08 08:37 | XMS_ITS | Encounter Summary ---
Author Organization [employer] ([place], [place], [place], [place]) Address [address] [place] [address] Care Team Providers Care Real Estate Intern Name Role Phone Unavailable Primary Care Provider Unavailabl e Encounter Details Date Type Department Care Team (Late st Contact Info) Description 08/01/2019 Transcribed Document [facility] [place] [address] [place] [address] ProviderSonia MD [address] [place], [place] [address] Social History Tobacco Use Types Packs/Day Years Used Date Smoking Tobacco: Never Assessed Comments Unknown Sex and Gender Information Value Date Recorded Sex Assigned at Not on file Legal Sex Female 1:42 PM CDT Gender Identity Not on file Sexual Orientation Not on file documented as of this encounter Miscellaneous Notes * Cerner Conversion Note - Sonia ProviderMD - 08/01/2019 2:00 AM ANALYSIS ENGINEER Data Modeler Details Entered On: 08/01/2019 4:01 EST Performed [...] Cathie Lundy RN - 08/01/2019 4:01 EST Electronically signed by Raman [facility] Conversion Spray Operator Cerner at 11/19/2022 8:28 PM CDT documented in this encounter Plan of Treatment Not on file documented as of this encounter Visit Diagnoses Not on filedocumented in this encounter
--- OUTSIDE RECORDS SUMMARY | 2025-03-08 08:37 | XMS_ITS | Encounter Summary ---
Author Organization [employer] ([place], [place], [place], [place]) Address [address] [place] [address] Care Team Providers Care Home Care Nurse Name Role Phone Unavailable Primary Care Provider Unavailabl e Encounter Details Date Type Department Care Team (Late st Contact Info) Description 07/22/[address] [facility] [place] [facility] [place] [address] ProviderSonia MD [address] [place], [place] [address] Social History Tobacco Use Types Packs/Day Years Used Date Smoking Tobacco: Never Assessed Comments Unknown Sex and Gender Information Value Date Recorded Sex Assigned at Not on file Legal Sex Female 1:42 PM CDT Gender Identity Not on file Sexual Orientation Not on file documented as of this encounter Miscellaneous Notes * Cerner Conversion Note - Sonia ProviderMD - 07/22/2019 6:29 AM TREE KILLER Pre Procedure Adult Entered On: 07/22/2019 6:33 EST Performed On: 07/22/2019 6:29 EST by NABEEL FABIAN RN Height and Weight, Clinical Dosing Height Source : Stated Height Entry Format : [place] Height, Feet : 5 ft(Converted to: 152 cm, 60 Inch) Height, Inches : 7 Inch(Converted to: 0 ft 7 Inch, 17.78 cm) Clinical Height : 170.18 cm Weight Source : Standing scale Weight Entry Format : [place] Clinical Dosing Weight : 104.55 kg Weight, Pounds : 230 lb Body Surface Area (BSA) : 2.15 m2 Body Mass Index : 36.1 kg/m2 (HI) [place] Body Weight : 61 kg NABEEL FABIAN [...] 11/13/2014 11:28:07 EDT by NOELLE LYNCH, NICOLASA) Infectious Disease History Infectious Disease History : [...] NABEEL FABIAN RN - 07/22/2019 6:51 EST [place] Suicide Severity Rating Scale (C-SSRS) CSSRS Past [...] EST Legal Guardian : No Support Person/Patient Cable Placer : Yes Support Person/Pt Rep Name : spouse Jose Frank Contact Password : [email or web address] Support Person/Pt Rep Contact Information : [phone] Want Family/Rep/Phys Notified of Admit : No Emergency Contact #1 : Jose Emergency Contact # Emergency Contact #1 Relationship : spouse Emergency Contact #2 : - Emergency Contact #2 Phone Number : - Emergency Contact #2 Relationship : - Information Obtained From : Patient Primary Language : Lao Preferred Communication Mode : Verbal Communication Barrier [...] Level : 46 or > High Risk [place] Fall Interventions : Adequate lighting, Assistive devices within reach, Bed in low position, Call device within reach, Personal items within reach, Upper side-rails up, Wheels locked NABEEL FABIAN RN - 07/22/2019 6:51 EST Fall Risk Education Grid Assistive Equipment Use : Verbalizes understanding Call light use : Verbalizes understanding Nonskid Footwear Use : Verbalizes understanding Siderails use/risks : Verbalizes understanding NABEEL FABAIN RN - 07/22/2019 6:51 EST Barriers to [...] the text rendition version of the form. [place] Coma Roxanne Best Motor Response : Obey commands Fieldon Best Verbal Response : Oriented Roxanne Eye Opening Response : Spontaneous [place] Coma Score : 15 NABEEL FABIAN RN - 07/22/2019 6:29 EST Electronically signed by Raman, [facility] Conversion Facility Maintenance Manager Cerner at 11/19/2022 8:27 PM CDT documented in this encounter Plan of Treatment Not on file documented as of this encounter Visit Diagnoses Not on filedocumented in this encounter
--- OUTSIDE RECORDS SUMMARY | 2025-03-08 08:37 | XMS_ITS | Encounter Summary ---
Author Organization [employer] ([place], [place], [place], [place]) Address [address] [place] [address] Care Team Providers Care Fitter Helper Name Role Phone Unavailable Primary Care Provider Unavailabl e Encounter Details Date Type Department Care Team (Late st Contact Info) Description 07/25/2019 Transcribed Document [facility] Radiology [address] [place] [address] Travis Robles MD [address] [place], [place] [id number] Social History Tobacco Use Types Packs/Day Years [...] physical therapy with the , nurse, case management associate all the bedside. She look like she is about to fallout ofthe bed. The patient's was asking about taking her home. He wanted to know if Dr. Patrick Knutson M.D. with orthopedic surgery actually goes to see patients at the [facility] That he does not go to the [facility] although 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 Physical therapy strongly agreed that he needs to go to inpatient rehabilitation either [facility] are at the [facility]. No fevers or chills. No nausea vomiting. [...] long-term facility. Patient's nurse and the patient's case management associate who saw her upstairs saw her again [...] list: Medical Adrenal insufficiency / SNOMED CT 9607592595 / Confirmed Aortic valve stenosis / SNOMED CT 307218729 / Confirmed Arthritis / SNOMED CT 5901360 / Confirmed Asthma / SNOMED CT 259152869 / Confirmed At risk for sleep apnea / IMO [id number] / Confirmed Cataracts, both eyes / SNOMED CT 080271196 / Confirmed chronic back pain / SNOMED CT 677154769 / Confirmed chronic diarrhea / SNOMED CT 583472584 / Confirmed Chronic kidney disease / SNOMED CT 7053043430 / Confirmed B12 deficiency / SNOMED CT 446084707 / Confirmed Dementia / SNOMED CT 21585036 / Confirmed depression / SNOMED CT 53054690 / Confirmed uses Renexa / SNOMED CT 6656304 / Confirmed chronic hydrocort use / SNOMED CT 8146852 / Confirmed peripheral neuropathy / SNOMED CT 53475922 / Confirmed GERD / SNOMED CT 715257259 / Confirmed fibromyalgia / SNOMED CT 87445448 / Confirmed Glaucoma / SNOMED CT 07036560 / Confirmed migraine headaches / SNOMED CT 958754827 / Confirmed hx cataract surgery bilateral / SNOMED CT 1984089129 / Confirmed hx. chest pain / SNOMED CT 2820110903 / Confirmed hx colon resection secondary decreased function / SNOMED CT 2102287882 / Confirmed hx. frequent UTIs / SNOMED CT 3183977472 / Confirmed high cholesterol / SNOMED CT 07483973 / Confirmed high blood pressure / SNOMED CT 0543317238 / Confirmed Hypothyroidism / SNOMED CT 89569562 / Confirmed kidney stone right kidney current and hx / SNOMED CT 807325314 / Confirmed Osteoporosis / SNOMED CT 806542988 / Confirmed Pneumonia / SNOMED CT 529795843 / Confirmed restless leg syndrome / SNOMED CT 51789404 / Confirmed rheumatoid arthritis / SNOMED CT 859307280 / Confirmed Seasonal allergies / SNOMED CT 8980657861 / Confirmed Vitamin D deficiency / SNOMED CT 41148915 / Confirmed Resolved: Hypotension / SNOMED CT 24814123 Canceled: adrenal insufficiency / SNOMED CT 1961815443 Canceled: Hyperthyroidism / SNOMED CT 69632OJN-SVT6-668E-[id number], Active Problems (33) Adrenal insufficiency Aortic valve [...] azelastine 137 mcg/inh (0.1%) nasal spray: 2 Christopher, Nasal, BID, PRN: Allergies budesonide: 0.5 mg, [...] intl units oral capsule: 1 Cap, Oral, U5Bdmkb, 0 Refill(s) Dilaudid: pain pump, 0 Refill(s) Flax Seed Oil: 1,200 mg, Oral, BID, 0 Refill(s) Flonase: 1 Christopher, Nostrils Both, BID Lunesta: 3 mg, Oral, [...] azelastine 205.5 mcg/inh (0.15%) nasal spray: 2 Christopher, Nasal, BID, PRN: for allergy symptoms, 0 [...] azelastine 205.5 mcg/inh (0.15%) nasal spray 2 Christopher, PRN, Nasal, BID biotin 5 mg, Oral, [...] 50,000 Int Units = 1 Cap, Oral, H3Lkhps Dilaudid donepezil 23 mg, Oral, Daily famotidine 40 mg, Oral, BID Flax Seed Oil 1,200 mg, Oral, BID Flonase 1 Christopher, Nostrils Both, BID gabapentin 100 mg oral [...] azelastine 137 mcg/spray nasal 30 mL 2 Christopher, Nasal, BID bisacodyl 10 mg supp 10 [...] 17:00) H 155 (JUL 24:) DBP 67 (DEC 23 09:25) L 51 (JUL 24 17:00) 67 (JUL 25 01:54) MAP 84 (JUL 25 09:25) 63 (JUL 24 17:00) 86 (JUL 24:21) SpO2 95 (JUL 25 09:25) 94 (JUL 24 17:09) 100 (JUL 24:21) Physical Examination VS/Measurements Vitals Signs (last 24 hrs) Last Charted Minimum Maximum Temp 98.1 (JUL 25:25) 97.3 (JUL 25 05:52) 98.3 (JUL 24 17:00) Apical HR 62 (JUL 25 08:43) 62 (JUL 25 08:43) 82 (JUL 24 21:24) Mon HR 75 (JUL 25 09:25) 61 (JUL 24 20:32) 82 (JUL 24:21) Resp Rate 18 (JUL 25:) 16 (JUL 24 17:09) 18 (JUL 25:) SBP 131 (JUL 25:25) 112 (JUL 24 17:00) H 155 (JUL 24:) DBP 67 (JUL 25 09:25) L 51 (JUL 24 17:00) 67 (JUL 25 01:54) MAP 84 (JUL 25 09:) 63 (JUL 24 17:00) 86 (JUL 24 21:21) SpO2 95 (JUL 25 09:) 94 (JUL 24 17:09) 100 (JUL 24 21:21) General: Alert and oriented, Mild distress, Obese, [...] obese and debilitated, her , nurse, case management associate THE bedside. The really voiced some interest [...] afternoon. The patient's nurse and her case management associate who saw her yesterday at the bedside [...] any more bleeding or significant blood loss. [employer] dictation system used. Computer program makes numerous spelling grammar mistakes. If you have any questions or concerns do not hesitate call Dr. Travis Lux at cell phone number [phone]. documented in this encounter Plan of Treatment Not on file documented as of this encounter Visit Diagnoses Not on filedocumented in this encounter
--- OUTSIDE RECORDS SUMMARY | 2025-03-08 08:37 | XMS_ITS | Encounter Summary ---
Author Organization [employer] ([place], [place], [place], [place]) Address [address] [place] [address] Care Team Providers Care Food Selector Name Role Phone Unavailable Primary Care Provider Unavailabl e Encounter Details Date Type Department Care Team (Late st Contact Info) Description 07/22/2019 Transcribed Document [facility] [place] [facility] [place] [address] ProviderSonia MD [address] [place] [id number] Social History Tobacco Use Types Packs/Day Years Used Date Smoking Tobacco: Never Assessed Comments Unknown Sex and Gender Information Value Date Recorded Sex Assigned at Not on file Legal Sex Female 1:42 PM CDT Gender Identity Not on file Sexual Orientation Not on file documented as of this encounter Miscellaneous Notes * [employer]ner Conversion Note - Sonia ProviderMD - 07/22/2019 1:17 PM HIGH SCHOOL LEARNING SUPPORT TEACHER Treatment Intervention, OT Entered On: 07/23/2019 15:49 [...] Minute(s) Actual Treatment Time : 20 Minute(s) QUINCY PARKSTEPHANIE CARMONA/Cat - 07/23/2019 15:44 EST Self Care/Home Management, OT Self Care/Home Management Comment, OT : max assist with LB self-care PRESTON PARKNISTEPHANIE CARMONA/Cat - 07/23/2019 15:44 EST Functional Mobility Mobility Grid Supine to Sit : Rehab Minimal assistance ARIEL PARK OTR/Cat - 07/23/2019 15:44 EST Cognitive Treatment, OT Orientation : Oriented x 4 TYRELLCUBAPRESTONARIEL, OTR/Cat - 07/23/2019 15:44 EST Plan of Care, OT OT Tx Plan/Goals Established w Patient : Yes XAVIER ARIEL, OTR/Cat - 07/23/2019 15:44 EST Penitentiary Goals, OT Other LTG Grid Goal #1 [...] 07/23/2019 15:44 EST Electronically signed by Raman [facility] Conversion Blender / Cook Cerner at 11/21/2022 11:34 AM CDT documented in this encounter Plan of Treatment Not on file documented as of this encounter Visit Diagnoses Not on filedocumented in this encounter
--- OUTSIDE RECORDS SUMMARY | 2025-03-08 08:37 | XMS_ITS | Encounter Summary ---
Author Organization [employer] ([place], [place], [place], [place]) Address [address] [place] [address] Care Team Providers Care Auto Locator Name Role Phone Unavailable Primary Care Provider Unavailabl e Encounter Details Date Type Department Care Team (Late st Contact Info) Description 07/27/2019 Transcribed Document [facility] [place] [address] [place] [address] ProviderSonia MD [address] [place], [place] [address] Social History Tobacco Use Types Packs/Day Years Used Date Smoking Tobacco: Never Assessed Comments Unknown Sex and Gender Information Value Date Recorded Sex Assigned at Not on file Legal Sex Female 1:42 PM CDT Gender Identity Not on file Sexual Orientation Not on file documented as of this encounter Miscellaneous Notes * Cerner Conversion Note - Sonia ProviderMD - 07/27/2019 5:00 PM SCREW MACHINE TOOL SETTER Chart Check - Review Order Profile Entered On: 07/27/2019 20:01 EST Performed On: 07/27/2019 17:00 EST by Esther Cunningham RN Chart Check Powerplans Initiated/Discontinued as Appropriate : Yes All Active Orders Reviewed : Yes Esther Cunningham RN - 07/27/2019 20:01 EST Electronically signed by Ivelisse Camargo Conversion Business Solutions Consultant Cerner at 11/19/2022 8:33 PM CDT documented in this encounter Plan of Treatment Not on file documented as of this encounter Visit Diagnoses Not on filedocumented in this encounter
--- OUTSIDE RECORDS SUMMARY | 2025-03-08 08:37 | XMS_ITS | Encounter Summary ---
Author Organization [employer] ([place], [place], [place], [place]) Address [address] [place] [address] Care Team Providers Care Town Clerk Name Role Phone Unavailable Primary Care Provider Unavailabl e Encounter Details Date Type Department Care Team (Late st Contact Info) Description 07/27/2019 Transcribed Document [facility] Family Medicine [address] [place] [address] ProviderSonia MD [address] [place], [place] [address] Social History Tobacco Use Types Packs/Day Years Used Date Smoking Tobacco: Never Assessed Comments Unknown Sex and Gender Information Value Date Recorded Sex Assigned at Not on file Legal Sex Female 1:42 PM CDT Gender Identity Not on file Sexual Orientation Not on file documented as of this encounter Miscellaneous Notes * Cerner Conversion Note - Historical ProviderMD - 07/27/2019 2:00 AM PROPERTY APPRAISER Manager Investment Banking Details Entered On: 07/27/2019 2:11 EST Performed [...]
--- OUTSIDE RECORDS SUMMARY | 2025-03-08 08:37 | XMS_ITS | Encounter Summary ---
Author Organization [employer] ([place], [place], [place]) Address [address] [place] [address] Care Team Providers Care Assistant Front End Manager Name Role Phone Unavailable Primary Care Provider Unavailabl e Encounter Details Date Type Department Care Team (Late st Contact Info) Description 07/26/2019 Transcribed Document [facility] Family Medicine [facility] [place] [address] ProviderSonia MD [facility] [place], [place] [address] Social History Tobacco Use Types Packs/Day Years Used Date Smoking Tobacco: Never Assessed Comments Unknown Sex and Gender Information Value Date Recorded Sex Assigned at Not on file Legal Sex Female 1:42 PM CDT Gender Identity Not on file Sexual Orientation Not on file documented as of this encounter Miscellaneous Notes * Cerner Conversion Note - Sonia ProviderMD - 07/26/2019 6:00 AM SPOUTING INSTALLER Pain Assessment Entered On: 07/26/2019 6:21 EST [...]
--- OUTSIDE RECORDS SUMMARY | 2025-03-08 08:37 | XMS_ITS | Encounter Summary ---
Author Organization [employer] ([place], [place], [place], [place]) Address [address] [place] [address] Care Team Providers Care Group Burner Machine Name Role Phone Unavailable Primary Care Provider Unavailabl e Encounter Details Date Type Department Care Team (Late st Contact Info) Description 07/27/2019 Transcribed Document [facility] [place] [address] [place] [address] ProviderSonia MD [address] [place], [place] [address] Social History Tobacco Use Types Packs/Day Years Used Date Smoking Tobacco: Never Assessed Comments Unknown Sex and Gender Information Value Date Recorded Sex Assigned at Not on file Legal Sex Female 1:42 PM CDT Gender Identity Not on file Sexual Orientation Not on file documented as of this encounter Miscellaneous Notes * Cerner Conversion Note - Sonia ProviderMD - 07/27/2019 6:00 AM MEDICAL IMAGING SPECIALIST Pain Assessment Entered On: 07/27/2019 6:58 EST Performed On: 07/27/2019 7:07 EST by Barrington Roberts RN Intervention Information: acetaminophen Performed by Barrington Roberts RN on 07/27/2019 06:07:00 EST acetaminophen,1000mg Oral Pain Assessment Pain Assessment : Follow-up assessment Pain Scale Goal : 5 Pain Intervention, Drug : Medicated Pain Improved by Intervention : Yes Barrington Roberts RN - 07/27/2019 6:58 EST documented in this encounter Plan of Treatment Not on file documented as of this encounter Visit Diagnoses Not on filedocumented in this encounter
--- OUTSIDE RECORDS SUMMARY | 2025-03-08 08:37 | XMS_ITS | Encounter Summary ---
Author Organization [employer] ([place], [place], [place], [place]) Address [address] [place] [address] Care Team Providers Care Associate Software Application Engineer Name Role Phone Unavailable Primary Care Provider Unavailabl e Encounter Details Date Type Department Care Team (Late st Contact Info) Description 07/26/2019 Transcribed Document [facility] [place] Family Medicine [address] [place] [address] ProviderSonia MD [address] [place], [place] [address] Social History Tobacco Use Types Packs/Day Years Used Date Smoking Tobacco: Never Assessed Comments Unknown Sex and Gender Information Value Date Recorded Sex Assigned at Not on file Legal Sex Female 1:42 PM CDT Gender Identity Not on file Sexual Orientation Not on file documented as of this encounter Miscellaneous Notes * Cerner Conversion Note - Sonia ProviderMD - 07/26/2019 10:00 PM REAR ADMIRAL Pain Assessment Entered On: 07/27/2019 2:08 EST [...]
--- OUTSIDE RECORDS SUMMARY | 2025-03-08 08:37 | XMS_ITS | Encounter Summary ---
Author Organization [employer] ([place], [place], [place], [place]) Address [address] [place] [address] Care Team Providers Care Fnp Name Role Phone Unavailable Primary Care Provider Unavailabl e Encounter Details Date Type Department Care Team (Late st Contact Info) Description 07/22/2019 Transcribed Document [facility] Family Medicine [facility] [place] [address] ProviderSonia MD [address] [place] [address] Social History Tobacco Use Types Packs/Day Years Used Date Smoking Tobacco: Never Assessed Comments Unknown Sex and Gender Information Value Date Recorded Sex Assigned at Not on file Legal Sex Female 1:42 PM CDT Gender Identity Not on file Sexual Orientation Not on file documented as of this encounter Miscellaneous Notes * Cerner Conversion Note - Sonia ProviderMD - 07/22/2019 1:36 PM FILLER SHREDDER HELPER Patient: SANDIE FRANK Age: 63 Years Sex: Female : 1955 Chief Complaint s/p Right Total Hip Arthroplasty by Dr. Villar. Primary Care Provider LEOPOLDO TEJADA (REF[facility] History of Present Illness Mrs. Frank [...] discharge due to hx of going to [facility] after her last elective orthopedic shoulder surgery. Time spent: 48 minutes. Maggi Eric-C, personally evaluated the patient. Patient discussed with Dr. Rasmussen who also saw the patient and agrees [...] azelastine 205.5 mcg/inh (0.15%) nasal spray 2 [place], PRN, Nasal, BID biotin 5 mg, Oral, [...] 50,000 Int Units = 1 Cap, Oral, V3Wfolg Dilaudid donepezil 23 mg, Oral, Daily famotidine [...] Full Code, Continuous Order Electronically signed by Raman, [facility] Conversion Airplane Gastank Liner Assembler Cerner at 11/19/2022 8:23 PM CDT documented in this encounter Plan of Treatment Not on file documented as of this encounter Visit Diagnoses Not on filedocumented in this encounter
--- OUTSIDE RECORDS SUMMARY | 2025-03-08 08:37 | XMS_ITS | Encounter Summary ---
Author Organization [employer] ([place], [place], [place], [place]) Address [address] [place] [address] Care Team Providers Care Material Stress Tester Name Role Phone Unavailable Primary Care Provider Unavailabl e Encounter Details Date Type Department Care Team (Late st Contact Info) Description 07/25/2019 Transcribed Document [facility] [place] Family Medicine [address] [place] [address] ProviderSonia MD [address] [place], [place] [address] Social History Tobacco Use Types Packs/Day Years Used Date Smoking Tobacco: Never Assessed Comments Unknown Sex and Gender Information Value Date Recorded Sex Assigned at Not on file Legal Sex Female 1:42 PM CDT Gender Identity Not on file Sexual Orientation Not on file documented as of this encounter Miscellaneous Notes * Cerner Conversion Note - Sonia ProviderMD - 07/25/2019 5:00 AM MARINE ENGINEERING CONSULTANT Chart Check - Review Order Profile Entered On: 07/25/2019 5:19 EST Performed On: 07/25/2019 5:00 EST by Barrington Roberts RN Chart Check Powerplans Initiated/Discontinued as Appropriate : Yes All Active Orders Reviewed : Yes Barrington Roberts RN - 07/25/2019 5:19 EST Electronically signed by Raman [facility] Conversion Etcher Aircraft Cerner at 11/19/2022 8:47 PM CDT documented in this encounter Plan of Treatment Not on file documented as of this encounter Visit Diagnoses Not on filedocumented in this encounter
--- OUTSIDE RECORDS SUMMARY | 2025-03-08 08:37 | XMS_ITS | Encounter Summary ---
Author Organization [employer] ([place], [place], [place], [place]) Address [address] [place] [address] Care Team Providers Care Mash Grinder Name Role Phone Unavailable Primary Care Provider Unavailabl e Encounter Details Date Type Department Care Team (Late st Contact Info) Description 07/26/2019 Transcribed Document [facility] [place] [address] [place] [address] ProviderSonia MD [address] [place], [place] [address] Social History Tobacco Use Types Packs/Day Years Used Date Smoking Tobacco: Never Assessed Comments Unknown Sex and Gender Information Value Date Recorded Sex Assigned at Not on file Legal Sex Female 1:42 PM CDT Gender Identity Not on file Sexual Orientation Not on file documented as of this encounter Miscellaneous Notes * Cerner Conversion Note - Sonia ProviderMD - 07/26/2019 5:10 PM SLATE MIXER Event Note Entered On: 07/26/2019 17:11 EST [...]
--- OUTSIDE RECORDS SUMMARY | 2025-03-08 08:37 | XMS_ITS | Encounter Summary ---
Author Organization [employer] ([place], [place], [place], [place]) Address [address] [place] [address] Care Team Providers Care Rubber Heel And Sole Press Tender Name Role Phone Unavailable Primary Care Provider Unavailabl e Encounter Details Date Type Department Care Team (Late st Contact Info) Description 08/01/2019 Transcribed Document [facility] [place] [address] [place] [address] ProviderSonia MD [address] [place], [place] [address] Social History Tobacco Use Types Packs/Day Years Used Date Smoking Tobacco: Never Assessed Comments Unknown Sex and Gender Information Value Date Recorded Sex Assigned at Not on file Legal Sex Female 1:42 PM CDT Gender Identity Not on file Sexual Orientation Not on file documented as of this encounter Miscellaneous Notes * Cerner Conversion Note - Sonia ProviderMD - 08/01/2019 10:00 PM OIL DEVELOPER Pain Assessment Entered On: 08/01/2019 23:54 EST [...]
--- OUTSIDE RECORDS SUMMARY | 2025-03-08 08:37 | XMS_ITS | Encounter Summary ---
Author Organization [employer] ([place], [place], [place]) Address [address] [place] [address] Care Team Providers Care Rover Tender Name Role Phone Unavailable Primary Care Provider Unavailabl e Encounter Details Date Type Department Care Team (Late st Contact Info) Description 07/26/2019 Transcribed Document [facility] [place] [address] [place] [address] ProviderSonia MD [facility] [place], [place] [address] Social History Tobacco Use Types Packs/Day Years Used Date Smoking Tobacco: Never Assessed Comments Unknown Sex and Gender Information Value Date Recorded Sex Assigned at Not on file Legal Sex Female 1:42 PM CDT Gender Identity Not on file Sexual Orientation Not on file documented as of this encounter Miscellaneous Notes * Cerner Conversion Note - Sonia ProviderMD - 07/26/2019 2:00 PM HERB DOCTOR Pain Assessment Entered On: 07/26/2019 16:06 EST [...]
--- OUTSIDE RECORDS SUMMARY | 2025-03-08 08:37 | XMS_ITS | Encounter Summary ---
Author Organization [employer] ([place], [place]) Address [address] [place] [address] Care Team Providers Care Trash Hauler Name Role Phone Unavailable Primary Care Provider Unavailabl e Encounter Details Date Type Department Care Team (Late st Contact Info) Description 08/01/[address] [facility] [place] Family Medicine [address] [place] [address] ProviderSonia MD [address] [place], [place] [address] Social History Tobacco Use Types Packs/Day Years Used Date Smoking Tobacco: Never Assessed Comments Unknown Sex and Gender Information Value Date Recorded Sex Assigned at Not on file Legal Sex Female 1:42 PM CDT Gender Identity Not on file Sexual Orientation Not on file documented as of this encounter Miscellaneous Notes * [employer]ner Conversion Note - Sonia ProviderMD - 08/01/2019 5:00 PM FINANCIAL HEALTH COUNSELOR Chart Check - Review Order Profile Entered On: 08/01/2019 17:42 EST Performed On: 08/01/2019 17:00 EST by Maryann Cam RN Chart Check Powerplans Initiated/Discontinued as Appropriate : Yes All Active Orders Reviewed : Yes Maryann Cam RN - 08/01/2019 17:42 EST documented in this encounter Plan of Treatment Not on file documented as of this encounter Visit Diagnoses Not on filedocumented in this encounter
--- OUTSIDE RECORDS SUMMARY | 2025-03-08 08:37 | XMS_ITS | Encounter Summary ---
Author Organization [employer] ([place], [place], [place], [place]) Address [address] [place] [address] Care Team Providers Care Certified Pharmacy Tech Name Role Phone Unavailable Primary Care Provider Unavailabl e Encounter Details Date Type Department Care Team (Late st Contact Info) Description 07/26/2019 Transcribed Document [facility] [place] [address] [place] [address] ProviderSonia MD [address] [place], [place] [address] Social History Tobacco Use Types Packs/Day Years Used Date Smoking Tobacco: Never Assessed Comments Unknown Sex and Gender Information Value Date Recorded Sex Assigned at Not on file Legal Sex Female 1:42 PM CDT Gender Identity Not on file Sexual Orientation Not on file documented as of this encounter Miscellaneous Notes * [employer]ner Conversion Note - Sonia ProviderMD - 07/26/2019 5:00 AM FIRE TECHNOLOGY INSTRUCTOR Chart Check - Review Order Profile Entered On: 07/26/2019 4:47 EST Performed On: 07/26/2019 5:00 EST by Barrington Roberts RN Chart Check Powerplans Initiated/Discontinued as Appropriate : Yes All Active Orders Reviewed : Yes Barrington Roberts RN - 07/26/2019 4:47 EST Electronically signed by Raman [facility] Conversion Vaccine Manager Cerner at 11/19/2022 8:43 PM CDT documented in this encounter Plan of Treatment Not on file documented as of this encounter Visit Diagnoses Not on filedocumented in this encounter
--- OUTSIDE RECORDS SUMMARY | 2025-03-08 08:37 | XMS_ITS | Encounter Summary ---
Author Organization [employer] ([place], [place], [place], [place]) Address [address] [place] [address] Care Team Providers Care Produce Clerk Name Role Phone Unavailable Primary Care Provider Unavailabl e Encounter Details Date Type Department Care Team (Late st Contact Info) Description 07/26/2019 Transcribed Document [facility] [place] Family Medicine [address] [place] [address] ProviderSonia MD [address] [place], [place] [address] Social History Tobacco Use Types Packs/Day Years Used Date Smoking Tobacco: Never Assessed Comments Unknown Sex and Gender Information Value Date Recorded Sex Assigned at Not on file Legal Sex Female 1:42 PM CDT Gender Identity Not on file Sexual Orientation Not on file documented as of this encounter Miscellaneous Notes * Cerner Conversion Note - Sonia ProviderMD - 07/26/2019 5:00 PM SADDLE MECHANIC Chart Check - Review Order Profile Entered On: 07/26/2019 17:15 EST Performed On: 07/26/2019 17:00 EST by Jennifer Coleman, RN Chart Check Powerplans Initiated/Discontinued as Appropriate : Yes All Active Orders Reviewed : Yes Jennifer Coleman, RN - 07/26/2019 17:15 EST Electronically signed by Raman [facility] Conversion Horizontal Drill Operator Cerner at 11/19/2022 8:40 PM CDT documented in this encounter Plan of Treatment Not on file documented as of this encounter Visit Diagnoses Not on filedocumented in this encounter
--- OUTSIDE RECORDS SUMMARY | 2025-03-08 08:37 | XMS_ITS | Encounter Summary ---
Author Organization Healthcare Address [address] [place] [address] Care Team Providers Care Operating Systems Specialist Name Role Phone Marc Rodriguez MD Primary Care Provider [phone] Edgardo Zuñiga MD Unavailable [phone] Giulia Briggs Unavailable [phone] Edgardo Zuñiga MD Unavailable [phone] Esther Mathew Unavailable [phone] Reason for Visit * Reason Comments Med Refill Encounter Details Date Type Department Care Team (Late st Contact Info) Description 02/28/2025 [facility] [facility] [address] [place] [address] Esther Mathew PA [address] [place] [address] Social History Tobacco Use Types [...] to sleep or slept in a senior living (including now)? No 05/13/2024 PHQ-9 Answer Date Recorded Patient Health Questionnaire-9 Score 0 07/05/2024 Utilities Answer Date Recorded In the past 12 months has th e [employer], gas, oil, or water [employer] threatened to shut off services in your home? No 05/13/2024 Comments No Sex and Gender Information Value Date Recorded Sex Assigned at Female 07/31/2021 6:10 AM EST Legal Sex Female 8:40 PM EDT Gender Identity Female 07/31/2021 6:10 AM EST Sexual Orientation Not on file documented as of this encounter Miscellaneous Notes * Telephone Encounter - Betsy Monson - 03/01/2025 8:24 AM EDT 1 medication(s) has been approved per protocol. Patient must schedule an appointment and be seen inclinic for additional refills. Last clinic visit 09/26/2024 with F/U advised in 6 months. Canceled appt 02/28/2025. documented in this encounter Plan of Treatment Upcoming Encounters Date Type Department Care Team (Late st Contact Info) Description 03/08/2025 1:40 PM EDT Office Visit [facility] Orthopaedic Surgery & Sports Medicine [address] [place] [address] Edgardo Zuñiga MD [address] [facility] [address] [place] [address] 03/09/2025 1:20 PM EDT Office Visit [facility] [address] [place] [phone] Suzan Galindo DO [address] [place] [address] documented as of this encounter [...] documented as of this encounter Care Teams Operating Systems Specialist Relationship Specialty Start Date End Date Marc Rodriguez MD [address] [place] [address] PCP - General 12/14/20 Edgardo Zuñiga MD [address] [facility] [address] [place] [address] Surgeon Neurosurgery 03/04/21 Giulia Briggs PA [address] [place] [address] Physician Manager Costing Neurosurgery 07/03/21 Edgardo Zuñiga MD [address] [place] [address] Surgeon Neurosurgery 09/16/21 Esther Mathew PA [address] [place] [address] Physician Manager Costing Neurology 11/19/22 documented as of this encounter
--- OUTSIDE RECORDS SUMMARY | 2025-03-08 08:37 | XMS_ITS | Encounter Summary ---
Author Organization [employer] ([place], [place], [place], [place]) Address [address] [place] [address] Care Team Providers Care Nursing Director Name Role Phone Unavailable Primary Care Provider Unavailabl e Encounter Details Date Type Department Care Team (Late st Contact Info) Description 07/24/2019 Transcribed Document [facility] [place] Family Medicine [address] [place] [address] ProviderSonia MD [address] [place], [place] [address] Social History Tobacco Use Types Packs/Day Years Used Date Smoking Tobacco: Never Assessed Comments Unknown Sex and Gender Information Value Date Recorded Sex Assigned at Not on file Legal Sex Female 1:42 PM CDT Gender Identity Not on file Sexual Orientation Not on file documented as of this encounter Miscellaneous Notes * Cerner Conversion Note - Sonia ProviderMD - 07/24/2019 10:00 PM ALTERATION WORKROOM SUPERVISOR Pain Assessment Entered On: 07/25/2019 0:08 EST [...]
--- OUTSIDE RECORDS SUMMARY | 2025-03-08 08:38 | XMS_ITS | Encounter Summary ---
Author Organization [employer] ([place], [place], [place], [place]) Address [address] [place] [address] Care Team Providers Care Volleyball Coach Name Role Phone Unavailable Primary Care Provider Unavailabl e Encounter Details Date Type Department Care Team (Late st Contact Info) Description 07/22/2019 Transcribed Document [facility] [facility] [place] [address] ProviderSonia MD [address] [place], [place] [address] Social History Tobacco Use Types Packs/Day Years Used Date Smoking Tobacco: Never Assessed Comments Unknown Sex and Gender Information Value Date Recorded Sex Assigned at Not on file Legal Sex Female 1:42 PM CDT Gender Identity Not on file Sexual Orientation Not on file documented as of this encounter Miscellaneous Notes * Cerner Conversion Note - Sonia Boogie MD - 07/22/2019 8:11 AM TOOL AND DIE MANAGER [facility] [place] PAC[place] Summary Primary Physician: PEE VILLAR MD-ORT Finalized Date/Time: 07/22/19 13:31:44 Pt. Name: SANDIE FRNAK Jovana AnthonyB./Sex: 1955 Female Med Rec #: [id number] Physician: PEE VILLAR MD-ORT Financial #: [id number] Pt. Type: I Room/Bed: 51/1 Admit/Disch: 07/22/19 04:50:00 - Institution: [facility] OR PACU Case Times Entry 1 In PACU I 07/22/19 09:39:00 Ready for PACU 07/22/19 11:35:00 Discharge Discharge from PACU 07/22/19 11:45:00 I Last Modified By: Lauren Cohen RN 07/22/19 13:31:42 [facility] Main OR PACU Case Times Audit 07/22/19 13:31:42 Audio Installer: MISAEL Modifier: HELFEP <+> 1 Discharge from PACU I Finalized By: Lauren Cohen, RN Document Signatures Signed By: Lauren Cohen RN 07/22/19 13:31 documented in this encounter Plan of Treatment Not on file documented as of this encounter Visit Diagnoses Not on filedocumented in this encounter
--- OUTSIDE RECORDS SUMMARY | 2025-03-08 08:38 | XMS_ITS | Encounter Summary ---
Author Organization [employer] ([place], [place], [place], [place]) Address [address] [place] [address] Care Team Providers Care Neurology Professor Name Role Phone Unavailable Primary Care Provider Unavailabl e Encounter Details Date Type Department Care Team (Late st Contact Info) Description 07/11/2019 Transcribed Document [facility] Family Medicine [facility] [place] [address] ProviderSonia MD [address] [place] [address] Social History Tobacco Use Types Packs/Day Years Used Date Smoking Tobacco: Never Assessed Comments Unknown Sex and Gender Information Value Date Recorded Sex Assigned at Not on file Legal Sex Female 1:42 PM CDT Gender Identity Not on file Sexual Orientation Not on file documented as of this encounter Miscellaneous Notes * Cerner Conversion Note - Sonia Boogie MD - 07/11/2019 9:00 AM FORMING MACHINE UPKEEP MECHANIC Orthopedic Nurse Navigator Entered On: 07/11/2019 12:43 EST Performed On: 07/11/2019 9:00 EST by Ana Call Nurse RN Orthopedic Nurse Navigator Assessment Attended Joint Academy : Yes Joint AcademyType : In person Joint Academy Date : 07/11/2019 EST Joint Leather Piece Inspector Attended Academy : Yes Joint Leather Piece Inspector Name : Jose Frank [phone] Type of Surgery : Anterior Hip Replacement, Right Does Patient Have a Walker? : Yes Patient Completed RAPT Score : 8 Joint Navigator Assessment Note : According to the RAPT Score, additional intervention to discharge directly home. Pt indicates leg weakness. Pt indicates she wants OP and [id number]. Ana Call Nurse RN - 07/11/2019 12:38 [...]
--- OUTSIDE RECORDS SUMMARY | 2025-03-08 08:38 | XMS_ITS | Encounter Summary ---
Author Organization [employer] ([place], [place], [place], [place]) Address [address] [place] [address] Care Team Providers Care Cashier Credit Name Role Phone Unavailable Primary Care Provider Unavailabl e Encounter Details Date Type Department Care Team (Late st Contact Info) Description 07/31/2019 Transcribed Document [facility] Family Medicine [address] [place] [address] ProviderSonia MD [address] [place], [place] [address] Social History Tobacco Use Types Packs/Day Years Used Date Smoking Tobacco: Never Assessed Comments Unknown Sex and Gender Information Value Date Recorded Sex Assigned at Not on file Legal Sex Female 1:42 PM CDT Gender Identity Not on file Sexual Orientation Not on file documented as of this encounter Miscellaneous Notes * Cerner Conversion Note - Sonia ProviderMD - 07/31/2019 5:00 AM DRY HOUSE TENDER Chart Check - Review Order Profile Entered On: 07/31/2019 5:27 EST Performed On: 07/31/2019 5:00 EST by Cathie Lundy RN Chart Check Powerplans Initiated/Discontinued as Appropriate : Yes All Active Orders Reviewed : Yes Cahtie Lundy RN - 07/31/2019 5:27 EST documented in this encounter Plan of Treatment Not on file documented as of this encounter Visit Diagnoses Not on filedocumented in this encounter
--- OUTSIDE RECORDS SUMMARY | 2025-03-08 08:38 | XMS_ITS | Encounter Summary ---
[facility] Address [address] [place] [address] Care Team Providers Care Business Segment Manager Name Role Phone Marc Rodriguez MD Primary Care Provider [phone] Encounter Details Date Type Department Care Team (Late st Contact Info) Description 12/14/2018 External CPT II BALLPOINT PEN CARTRIDGE TESTER - [facility] Social History Tobacco Use Types Packs/Day Years Used Date Smoking Tobacco: Never Smokeless Tobacco: Never Alcohol Use Standard Drinks/Week Comments No 0 (1 standard drink = 0.6 oz pur e alcohol) Comments Unknown Sex and Gender Information Value Date Recorded Sex Assigned at Female 12/29/2024 10:37 AM EDT Legal Sex Female 10:05 AM EDT Gender Identity Not on file Sexual Orientation Not on file documented as of this encounter Plan of Treatment Upcoming Encounters Date Type Department Care Team (Late Contact Info) Description 03/13/2025 9:45 AM EDT Office Visit [facility] CARDIOLOGY [address] [facility] [address], [place] [address] Jimmy Duncan MD [address] [facility] [address] [place] [address] 06/26/2025 9:30 AM EST Procedure visit [facility] PULMONARY & CRITICAL CARE MEDICINE [address] [place] [address] 06/26/2025 10:00 AM EST Office Visit [facility] PULMONARY & CRITICAL CARE MEDICINE [address] [place] [address] Kaitlin Joiner APRN [address] [place] [address] documented as of this encounter Visit Diagnoses [...] documented as of this encounter Care Teams Business Segment Manager Relationship Specialty Start Date End Date Marc Rodriguez MD [address] [facility] [address] [facility] [facility] [place] [address] PCP - General Adolescent Medicine 12/08/16 documented as of this encounter
--- OUTSIDE RECORDS SUMMARY | 2025-03-08 08:38 | XMS_ITS | Encounter Summary ---
Author Organization [employer] ([place], [place], [place], [place]) Address [address] [place] [address] Care Team Providers Care Tool Crib Supervisor Name Role Phone Unavailable Primary Care Provider Unavailabl e Encounter Details Date Type Department Care Team (Late st Contact Info) Description 07/11/2019 Transcribed Document [facility] [place] Family Medicine [address] [place] [address] ProviderSonia MD [address] [place] [address] Social History Tobacco Use Types Packs/Day Years Used Date Smoking Tobacco: Never Assessed Comments Unknown Sex and Gender Information Value Date Recorded Sex Assigned at Not on file Legal Sex Female 1:42 PM CDT Gender Identity Not on file Sexual Orientation Not on file documented as of this encounter Miscellaneous Notes * Cerner Conversion Note - Sonia ProviderMD - 07/11/2019 12:58 PM PHYSICAL THERAPY PROFESSOR Orthopedic Nurse Navigator Entered On: 07/11/2019 12:58 EST Performed On: 07/11/2019 12:58 EST by Ana Call, Nurse quality assurance lab technician Nurse Navigator Assessment Joint Navigator Assessment Note : Pt mentioned she spoke with about possible rehab. Ana Call Nurse RN - 07/11/2019 12:58 EST Electronically signed by Ivelisse Camargo Conversion Parallel Computing Software Engineer Fela at 11/19/2022 8:30 PM CDT documented in this encounter Plan of Treatment Not on file documented as of this encounter Visit Diagnoses Not on filedocumented in this encounter
--- OUTSIDE RECORDS SUMMARY | 2025-03-08 08:38 | XMS_ITS | Encounter Summary ---
Author Organization [employer] ([place], [place], [place], [place]) Address [address] [place] [address] Care Team Providers Care Radiology Physician Assistant Name Role Phone Unavailable Primary Care Provider Unavailabl e Encounter Details Date Type Department Care Team (Late st Contact Info) Description 07/22/2019 Transcribed Document [facility] [place] [facility] [place] [address] ProviderSonia MD [facility] [place], [place] [address] Social History Tobacco Use Types Packs/Day Years Used Date Smoking Tobacco: Never Assessed Comments Unknown Sex and Gender Information Value Date Recorded Sex Assigned at Not on file Legal Sex Female 1:42 PM CDT Gender Identity Not on file Sexual Orientation Not on file documented as of this encounter Miscellaneous Notes * Cerner Conversion Note - Sonia Boogie MD - 07/22/2019 2:01 PM SPECIAL ED ASSISTANT Patient: SANDIE FRANK Age: 63 years Sex: [...] azelastine 205.5 mcg/inh (0.15%) nasal spray 2 [place], PRN, Nasal, BID biotin 5 mg, Oral, [...] 50,000 Int Units = 1 Cap, Oral, A7Cucvo Dilaudid donepezil 23 mg, Oral, Daily famotidine [...] Lyrica Confusion meropenem None Documented Thanks, Bulmaro Elizonod, PharmD #[id number] Electronically signed by [facility] Conversion Instruments Sales Representative Cerner at 11/19/2022 8:26 PM CDT documented in this encounter Plan of Treatment Not on file documented as of this encounter Visit Diagnoses Not on filedocumented in this encounter
--- OUTSIDE RECORDS SUMMARY | 2025-03-08 08:38 | XMS_ITS | Encounter Summary ---
Author Organization [employer] ([place], [place], [place], [place]) Address [address] [place] [address] Care Team Providers Care Elementary Teacher Name Role Phone Unavailable Primary Care Provider Unavailabl e Encounter Details Date Type Department Care Team (Late st Contact Info) Description 07/22/2019 Transcribed Document [facility] [place] [place] [facility] [place] [address] ProviderSonia MD [address] [place] [address] Social History Tobacco Use Types Packs/Day Years Used Date Smoking Tobacco: Never Assessed Comments Unknown Sex and Gender Information Value Date Recorded Sex Assigned at Not on file Legal Sex Female 1:42 PM CDT Gender Identity Not on file Sexual Orientation Not on file documented as of this encounter Miscellaneous Notes * Cerner Conversion Note - Sonia Boogie MD - 07/22/2019 8:36 AM FUNERAL SERVICE APPRENTICE Patient: SANDIE FRANK Age: 63 Years Sex: [...] azelastine 205.5 mcg/inh (0.15%) nasal spray 2 [place], PRN, Nasal, BID biotin 5 mg, Oral, [...] 50,000 Int Units = 1 Cap, Oral, W1Arysn donepezil 23 mg, Oral, Daily famotidine 40 [...] Q6H PRNpain, Rescue Pain Tylenol 1000mg TID documented in this encounter Plan of Treatment Not on file documented as of this encounter Visit Diagnoses Not on filedocumented in this encounter
--- OUTSIDE RECORDS SUMMARY | 2025-03-08 08:38 | XMS_ITS | Encounter Summary ---
Author Organization [employer] ([place], [place], [place], [place]) Address [address] [place] [address] Care Team Providers Care Freezer Worker Name Role Phone Unavailable Primary Care Provider Unavailabl e Encounter Details Date Type Department Care Team (Late st Contact Info) Description 07/22/2019 Transcribed Document [facility] [place] Family Medicine [facility] [place] [address] ProviderSonia MD [facility] [place] [id number] Social History Tobacco Use Types Packs/Day Years Used Date Smoking Tobacco: Never Assessed Comments Unknown Sex and Gender Information Value Date Recorded Sex Assigned at Not on file Legal Sex Female 1:42 PM CDT Gender Identity Not on file Sexual Orientation Not on file documented as of this encounter Miscellaneous Notes * Cerner Conversion Note - Sonia Boogie MD - 07/22/2019 11:20 AM ORNAMENTAL METAL ERECTOR APPRENTICE Pain Assessment Entered On: 07/23/2019 12:22 EST [...]
--- OUTSIDE RECORDS SUMMARY | 2025-03-08 08:38 | XMS_ITS | Encounter Summary ---
Author Organization [employer] ([place], [place], [place]) Address [address] [place] [address] Care Team Providers Care Manager Strategic Alliances Name Role Phone Unavailable Primary Care Provider Unavailabl e Encounter Details Date Type Department Care Team (Late st Contact Info) Description 07/22/2019 Transcribed Document [facility] [place] Family Medicine [facility] [place] [address] ProviderSonia MD [address] [place], [place] [address] Social History Tobacco Use Types Packs/Day Years Used Date Smoking Tobacco: Never Assessed Comments Unknown Sex and Gender Information Value Date Recorded Sex Assigned at Not on file Legal Sex Female 1:42 PM CDT Gender Identity Not on file Sexual Orientation Not on file documented as of this encounter Miscellaneous Notes * Cerner Conversion Note - Sonia ProviderMD - 07/22/2019 1:27 PM MILK SAMPLER Treatment Intervention, PT Entered On: 07/27/2019 11:17 [...] Instructions Ordered By: PEE VILLAR MD-ORT 07/22/2019 13:27 PT Additional Treatment Ordered By: COOPER DEVLIN Physical Therapist 07/23/2019 11:44 PT Evaluation and Treatment Ordered By: PEE VILLAR MD-ORT Active Diagnoses : No Qualifying Diagnoses Therapy Diagnosis, PT : aftercare following R aTHA Admission Date : 07/22/2019 04:50 Co-treated by, PT : Occupational Therapist Assisted by, PT : perioperative tech/aide Personal Devices : Personal Devices Dentures, upper, [...] NABEEL العراقي, PT - 07/27/2019 11:04 EST Intermediate Goals Other PT LTG Grid Goal #1 Goal #2 Goal #3 Goal #4 Other : Pt will participate in therapeutic exercise training and be issued a written HEP in order to increase strength for improved gait and provide carryover into the home environment. Pt will transfer sup/sit and sit/stand with RWx and no more than Ankita to increase safety for mobility at [facility]. Pt will amb at leats 25 feet [...] NABEEL العراقي, PT - 07/27/2019 11:[address] [facility] PT Charges PT Therap. Exercise 15 min : 1 PT Ther Activities Ea 15 Min : 1 NABEEL العراقي, PT - 07/27/2019 11:04 EST Electronically signed by Raman, [facility] Conversion Cattle Tester Cerner at 11/21/2022 11:34 AM CDT documented in this encounter Plan of Treatment Not on file documented as of this encounter Visit Diagnoses Not on filedocumented in this encounter
--- OUTSIDE RECORDS SUMMARY | 2025-03-08 08:38 | XMS_ITS | Encounter Summary ---
[facility] Address [address] [place] [address] Care Team Providers Care Bench Carpenter Name Role Phone Marc Rodriguez MD Primary Care Provider [phone] Encounter Details Date Type Department Care Team (Late st Contact Info) Description 11/26/2018 External CPT II GEOTECHNICAL LABORATORY TECHNICIAN - [facility] Social History Tobacco Use [...] [facility] CARDIOLOGY [address] [facility] [address] [address] Jimmy Duncan MD [address] [facility] [address] [place] [address] 06/26/2025 9:30 AM EST Procedure visit [facility] PULMONARY & CRITICAL CARE MEDICINE [address] [place] [address] 06/26/2025 10:00 AM EST Office Visit [facility] PULMONARY & CRITICAL CARE MEDICINE [address] [place] [address] Kaitlin Joiner APRN [address] [place] [address] documented as of this encounter Visit Diagnoses [...] documented as of this encounter Care Teams Bench Carpenter Relationship Specialty Start Date End Date Marc Rodriguez MD [address] [facility] [address] [facility] [place] [address] PCP - General Adolescent Medicine 12/08/16 documented as of this encounter
--- OUTSIDE RECORDS SUMMARY | 2025-03-08 08:38 | XMS_ITS | Encounter Summary ---
Author Organization [employer] ([place], [place], [place], [place]) Address [address] [place] [address] Care Team Providers Care Vascular Technologist Name Role Phone Unavailable Primary Care Provider Unavailabl e Encounter Details Date Type Department Care Team (Late st Contact Info) Description 08/02/2019 Transcribed Document [facility] [place] Family Medicine [address] [place] [address] ProviderSonia MD [address] [place] [address] Social History Tobacco Use Types Packs/Day Years Used Date Smoking Tobacco: Never Assessed Comments Unknown Sex and Gender Information Value Date Recorded Sex Assigned at Not on file Legal Sex Female 1:42 PM CDT Gender Identity Not on file Sexual Orientation Not on file documented as of this encounter Miscellaneous Notes * Cerner Conversion Note - Sonia ProviderMD - 08/02/2019 6:00 AM SENIOR C SOFTWARE ENGINEER Pain Assessment Entered On: 08/02/2019 6:53 EST [...]
--- OUTSIDE RECORDS SUMMARY | 2025-03-08 08:38 | XMS_ITS | Encounter Summary ---
Author Organization [employer] ([place], [place], [place], [place]) Address [address] [place] [address] Care Team Providers Care Java Technical Architect Name Role Phone Unavailable Primary Care Provider Unavailabl e Encounter Details Date Type Department Care Team (Late st Contact Info) Description 07/22/2019 Transcribed Document [facility] [place] [facility] [place] [address] ProviderSonia MD [facility] [place], [place] [address] Social History Tobacco Use Types Packs/Day Years Used Date Smoking Tobacco: Never Assessed Comments Unknown Sex and Gender Information Value Date Recorded Sex Assigned at Not on file Legal Sex Female 1:42 PM CDT Gender Identity Not on file Sexual Orientation Not on file documented as of this encounter Miscellaneous Notes * Cerner Conversion Note - Sonia Boogie MD - 07/22/2019 11:57 AM FEATHER EDGER Admission History, Adult Entered On: 07/22/2019 12:03 [...] Spouse Legal Guardian : No Support Person/Patient Electron Beam Machine Welder Setter : Yes Support Person/Pt Rep Name : spouse Jose Frank Contact Password : [email or web address] Support Person/Pt Rep Contact Information : [phone] Want Family/Rep/Phys Notified of Admit : No Emergency Contact #1 : Jose Emergency Contact # Emergency Contact #1 Relationship : spouse Emergency Contact #2 : -Angeline Emergency Contact #2 Phone Number : -[phone] Emergency Contact #2 Relationship : -daughter Information Obtained From : Patient, Spouse Primary Language : Sinhala Preferred Communication Mode : Verbal Communication Barrier [...] Level : 46 or > High Risk [place] Fall Interventions : Adequate lighting, Bed in [...] Source : Stated Height Entry Format : [place] Height, Feet : 5 ft(Converted to: 152 cm, 60 Inch) Height, Inches : 7 Inch(Converted to: 0 ft 7 Inch, 17.78 cm) Clinical Height : 170.18 cm Weight Source : Standing scale Weight Entry Format : [place] Clinical Dosing Weight : 104.55 kg Weight, Pounds : 230 lb Body Surface Area (BSA) : 2.15 m2 Body Mass Index : 36.1 kg/m2 (HI) [place] Body Weight : 61 kg Aimee Willis [...] Aimee Willis RN - 07/22/2019 11:57 EST [place] Suicide Severity Rating Scale (C-SSRS) CSSRS Past [...] Aimee Willis RN - 07/22/2019 11:57 EST Electronically signed by Raman, [facility] Conversion Nitroglycerin Distributor Cerner at 11/19/2022 8:29 PM CDT documented in this encounter Plan of Treatment Not on file documented as of this encounter Visit Diagnoses Not on filedocumented in this encounter
--- OUTSIDE RECORDS SUMMARY | 2025-03-08 08:38 | XMS_ITS | Encounter Summary ---
Author Organization [employer] ([place], [place], [place]) Address [address] [place] [address] Care Team Providers Care Software Applications Designer Name Role Phone Unavailable Primary Care Provider Unavailabl e Encounter Details Date Type Department Care Team (Late st Contact Info) Description 07/31/2019 Transcribed Document [facility] [place] [address] [place] [address] ProviderSonia MD [address] [place], [place] [address] Social History Tobacco Use Types Packs/Day Years Used Date Smoking Tobacco: Never Assessed Comments Unknown Sex and Gender Information Value Date Recorded Sex Assigned at Not on file Legal Sex Female 1:42 PM CDT Gender Identity Not on file Sexual Orientation Not on file documented as of this encounter Miscellaneous Notes * Cerner Conversion Note - Sonia ProviderMD - 07/31/2019 10:00 PM FURRIER APPRENTICE Pain Assessment Entered On: 08/01/2019 4:00 EST [...]
--- OUTSIDE RECORDS SUMMARY | 2025-03-08 08:38 | XMS_ITS | Encounter Summary ---
Author Organization [employer] ([place], [place], [place]) Address [address] [place] [address] Care Team Providers Care Press Clipper Name Role Phone Unavailable Primary Care Provider Unavailabl e Encounter Details Date Type Department Care Team (Late st Contact Info) Description 07/22/2019 Transcribed Document [facility] [place] [facility] [place] [address] ProviderSonia MD [address] [place], [place] [address] Social History Tobacco Use Types Packs/Day Years Used Date Smoking Tobacco: Never Assessed Comments Unknown Sex and Gender Information Value Date Recorded Sex Assigned at Not on file Legal Sex Female 1:42 PM CDT Gender Identity Not on file Sexual Orientation Not on file documented as of this encounter Miscellaneous Notes * Cerner Conversion Note - Sonia Boogie MD - 07/22/2019 11:20 AM RATCHET SETTER Evaluation, Physical Therapy Entered On: 07/22/2019 13:23 [...] Treatment Instructions Ordered By: PEE VILLAR MD-ORCarmen Active Diagnoses [...] WFL Left UE Strength : WFL COOPER DEVLIN Physical Therapist - 07/22/2019 13:01 EST Lower Extremity RLE Active ROM : Impaired Right LE Strength : Impaired LLE Active ROM : WFL Left LE Strength : WFCOOPER SCOTT Physical Therapist - 07/22/2019 13:01 EST Functional [...] Comment : B ankle DF WFL COOPER DEVLIN, Physical Therapist - 07/22/2019 13:01 EST Cognition [...] be a good candidate for rehab at [facility]. COOPER DEVLIN Physical Therapist - 07/22/2019 13:01 EST Admission Discharge Rn Goals Other PT LTG Grid Goal #1 Goal #2 Goal #3 Goal #4 Other : Pt will participate in therapeutic exercise training and be issued a written HEP in order to increase strength for improved gait and provide carryover into the home environment. Pt will transfer sup/sit and sit/stand with RWx and no more than Ankita to increase safety for mobility at [facility]. Pt will amb at leats 25 [...] Physical Therapist - 07/22/2019 13:01 EST COOPER DEVLIN Physical Therapist - 07/22/2019 13:01 COOPER COATES Physical Therapist - 07/22/2019 13:01 COOPER COATES [...] the text rendition version of the form. [place] PT Charges PT Ther Activities Ea 15 Min : 1 PT Eval Low Complexity : 1 COOPER DEVLIN Physical Therapist - 07/22/2019 13:01 EST documented in this encounter Plan of Treatment Not on file documented as of this encounter Visit Diagnoses Not on filedocumented in this encounter
--- OUTSIDE RECORDS SUMMARY | 2025-03-08 08:38 | XMS_ITS | Encounter Summary ---
Author Organization [employer] ([place], [place], [place]) Address [address] [place] [address] Care Team Providers Care Sock Drier Name Role Phone Unavailable Primary Care Provider Unavailabl e Encounter Details Date Type Department Care Team (Late st Contact Info) Description 07/31/2019 Transcribed Document [facility] [place] [address] [place] [address] ProviderSonia MD [address] [place], [place] [address] Social History Tobacco Use Types Packs/Day Years Used Date Smoking Tobacco: Never Assessed Comments Unknown Sex and Gender Information Value Date Recorded Sex Assigned at Not on file Legal Sex Female 1:42 PM CDT Gender Identity Not on file Sexual Orientation Not on file documented as of this encounter Miscellaneous Notes * Cerner Conversion Note - Sonia ProviderMD - 07/31/2019 2:00 AM WET WASHER MACHINE Castings Drafter Details Entered On: 07/31/2019 5:26 EST Performed [...] Cathie Lundy RN - 07/31/2019 5:26 EST Electronically signed by Raman [facility] Conversion Tire Design Engineer Cerner at 11/19/2022 8:41 PM CDT documented in this encounter Plan of Treatment Not on file documented as of this encounter Visit Diagnoses Not on filedocumented in this encounter
--- OUTSIDE RECORDS SUMMARY | 2025-03-08 08:38 | XMS_ITS | Encounter Summary ---
[facility] Organization [facility] Address [address] [place] [address] Care Team Providers Care Narrow Fabrics Weaver Name Role Phone Marc Rodriguez MD Primary Care Provider [phone] Reason for Visit * Reason Onset Date Comments DR. GOSS - MARIE ORDERS 03/07/2025 Encounter Details Date Type Department Care Team (Late st Contact Info) Description 03/07/2025 Telephone [facility] CARDIOLOGY [address] [facility] [address] [phone] Jimmy Goss MD [address] [facility] [address], [place] [address] DR. ANA PAULA SALAZAR ORDERS Social History Tobacco Use Types Packs/Day Years [...] encounter Miscellaneous Notes * Telephone Encounter - Ana Chris RegSched Rep - 03/07/2025 9:23 AM EDT FAXED ORDERS TO [facility] @ [phone] * Telephone Encounter - Jono Soler RegSched Rep - 03/07/2025 8:25 AM EDT Caller: Sandie Frank Relationship: Self Best call back number: [phone] What orders are you requesting (i.e. lab or imaging): LAB ORDERS In what timeframe would the patient need to come in: ASHLEY Where will you receive your lab/imaging services: [facility] Additional notes: PT SAYS FACILITY HAS NOT RECEIVED THESE ORDERS YET. PLEASE RESEND THESE ORDERS WHEN AVAILABLE TO [phone]. PLEASE CALL PT AFTER THIS HAS BEEN DONE. documented in this encounter Plan of Treatment Upcoming Encounters Date Type Department Care Team (Late st Contact Info) Description 03/13/2025 9:45 AM EDT Office Visit [facility] CARDIOLOGY [address] [facility] [address] [place] [id number] Jimmy Goss MD [address] [facility] [address] [place] [address] 06/26/2025 9:30 AM EST Procedure visit [facility] PULMONARY & CRITICAL CARE MEDICINE [address] [phone] 06/26/2025 10:00 AM EST Office Visit [facility] PULMONARY & CRITICAL CARE MEDICINE [address] [phone] Kaitlin Joiner, FLOATMAN [address] [place] [address] documented as of this encounter Visit Diagnoses Not on filedocumented in this encounter Care Teams Narrow Fabrics Weaver Relationship Specialty Start Date End Date Marc Rodriguez MD [address] [place] [address] [place] [address] PCP - General Adolescent Medicine 12/08/16 documented as of this encounter
--- OUTSIDE RECORDS SUMMARY | 2025-03-08 08:38 | XMS_ITS | Encounter Summary ---
Author Organization [employer] ([place], [place], [place]) Address [address] [place] [address] Care Team Providers Care Feeder Worker Power Unit Operator Name Role Phone Unavailable Primary Care Provider Unavailabl e Encounter Details Date Type Department Care Team (Late st Contact Info) Description 08/02/2019 Transcribed Document [facility] [place] [facility] [place] [address] ProviderSonia MD [address] [place] [place], [place] [address] Social History Tobacco Use Types Packs/Day Years Used Date Smoking Tobacco: Never Assessed Comments Unknown Sex and Gender Information Value Date Recorded Sex Assigned at Not on file Legal Sex Female 1:42 PM CDT Gender Identity Not on file Sexual Orientation Not on file documented as of this encounter Miscellaneous Notes * Cerner Conversion Note - Sonia Boogie MD - 08/02/2019 10:36 [address] STREETCAR REPAIRER Patient Education Materials Follows: What to expect [...] Barley. Bulgur wheat. Millet. Bran muffins. Popcorn. [place] wafer crackers. Vegetables Sweet potatoes. Spinach. Kale. Artichokes. Cabbage. Broccoli. Green peas. Carrots. Squash. Fruits Berries. Pears. Apples. Oranges. Avocados. Prunes and raisins. Dried figs. Meats and Other Protein Sources [place], kidney, roland, and soy beans. Split peas. [...] lolis has 11 g of protein. ?? [place] seeds - 1 oz has 5.5 g [...] floor. ?? Place frequently used items in [id number] places ?? Keep electrical cables out of [...] ?? Using the bathroom. ?? Using household guillotine operator or toxic chemicals. ?? Touching or taking [...] leg. Electronically signed by Ivelisse Camargo Conversion Director Operations Broadcast Cerner at 11/19/2022 8:37 PM CDT documented in this encounter Plan of Treatment Not on file documented as of this encounter Visit Diagnoses Not on filedocumented in this encounter
--- OUTSIDE RECORDS SUMMARY | 2025-03-08 08:38 | XMS_ITS | Encounter Summary ---
Author Organization [employer] ([place]) Address [address] [place] [address] Care Team Providers Care Fishing Boat Mate Name Role Phone Unavailable Primary Care Provider Unavailabl e Encounter Details Date Type Department Care Team (Late st Contact Info) Description 08/01/2019 Transcribed Document [facility] [place] [address] [place] [address] ProviderSonia MD [address] [place], [place] [address] Social History Tobacco Use Types Packs/Day Years Used Date Smoking Tobacco: Never Assessed Comments Unknown Sex and Gender Information Value Date Recorded Sex Assigned at Not on file Legal Sex Female 1:42 PM CDT Gender Identity Not on file Sexual Orientation Not on file documented as of this encounter Miscellaneous Notes * Cerner Conversion Note - Sonia ProviderMD - 08/01/2019 5:00 AM HEALTH SERVICES DIRECTOR Chart Check - Review Order Profile Entered [...]
--- OUTSIDE RECORDS SUMMARY | 2025-03-08 08:38 | XMS_ITS | Encounter Summary ---
Author Organization [employer] ([place]) Address [address] [place] [address] Care Team Providers Care Road Consultant Name Role Phone Unavailable Primary Care Provider Unavailabl e Encounter Details Date Type Department Care Team (Late st Contact Info) Description 07/31/2019 Transcribed Document [facility] [place] [address] [place] [address] ProviderSonia MD [address] [place], [place] [address] Social History Tobacco Use Types Packs/Day Years Used Date Smoking Tobacco: Never Assessed Comments Unknown Sex and Gender Information Value Date Recorded Sex Assigned at Not on file Legal Sex Female 1:42 PM CDT Gender Identity Not on file Sexual Orientation Not on file documented as of this encounter Miscellaneous Notes * Cerner Conversion Note - Sonia Boogie MD - 07/31/2019 6:00 AM FRONT DESK SUPERVISOR Pain Assessment Entered On: 07/31/2019 8:48 EST Performed On: 07/31/2019 9:10 EST by Trina Adorno RN Intervention Information: acetaminophen Performed by Cathie Lundy RN on 07/31/2019 08:10:00 EST acetaminophen,1000mg Oral Pain Assessment Pain Assessment : Follow-up assessment Pain Scale Goal : 5 Pain Improved by Intervention : Yes Trina Adorno RN - 07/31/2019 8:48 EST Electronically signed by Ivelisse Camargo Conversion Senior Microstrategy Developer Cerner at 11/19/2022 8:34 PM CDT documented in this encounter Plan of Treatment Not on file documented as of this encounter Visit Diagnoses Not on filedocumented in this encounter
--- OUTSIDE RECORDS SUMMARY | 2025-03-08 08:38 | XMS_ITS | Encounter Summary ---
Author Organization [employer] ([place], [place], [place], [place]) Address [address] [place] [address] Care Team Providers Care Sifting Operator Name Role Phone Unavailable Primary Care Provider Unavailabl e Encounter Details Date Type Department Care Team (Late st Contact Info) Description 07/11/2019 Transcribed Document [facility] [place] [facility] [address] ProviderSonia MD [address] [place], [place] [address] Social History Tobacco Use Types Packs/Day Years Used Date Smoking Tobacco: Never Assessed Comments Unknown Sex and Gender Information Value Date Recorded Sex Assigned at Not on file Legal Sex Female 1:42 PM CDT Gender Identity Not on file Sexual Orientation Not on file documented as of this encounter Miscellaneous Notes * Cerner Conversion Note - Sonia Boogie MD - 07/11/2019 12:38 PM TRACK REPAIR SUPERVISOR Total Joints Assessment Entered On: 07/11/2019 12:43 EST Performed On: 07/11/2019 12:38 EST by Ana Call Nurse RN HOOS, JR. Hip Survey 1. Going up or down stairs : Severe 2. Walking on an uneven surface : Severe 3. Rising from sitting : Severe 4. Bending to floor/strip picker an object : Severe 5. Lying [...]
--- OUTSIDE RECORDS SUMMARY | 2025-03-08 08:38 | XMS_ITS | Encounter Summary ---
Author Organization [employer] ([place], [place]) Address [address] [place] [address] Care Team Providers Care Type Mapper Name Role Phone Unavailable Primary Care Provider Unavailabl e Encounter Details Date Type Department Care Team (Late st Contact Info) Description 07/08/2019 Transcribed Document [facility] [place] [facility] [place] [address] ProviderSonia MD [address] [place] [id number] Social History Tobacco Use Types Packs/Day Years Used Date Smoking Tobacco: Never Assessed Comments Unknown Sex and Gender Information Value Date Recorded Sex Assigned at Not on file Legal Sex Female 1:42 PM CDT Gender Identity Not on file Sexual Orientation Not on file documented as of this encounter Miscellaneous Notes * Cerner Conversion Note - Sonia ProviderMD - 07/08/2019 9:48 AM STENCIL SPRAYER PAT Adult Entered On: 07/08/2019 9:55 EST [...] Oxygen Therapy Mode : Room air BHAVANI MCCORMICK RN - 07/08/2019 10:18 EST Height and Weight, Clinical Dosing Height Source : Stated Height Entry Format : [place] Height, Feet : 5 ft(Converted to: 152 cm, 60 Inch) Height, Inches : 7 Inch(Converted to: 0 ft 7 Inch, 17.78 cm) Clinical Height : 170.18 cm Weight Source : Standing scale Weight Entry Format : [place] Clinical [facility] Weight : 104.55 kg Weight, Pounds : 230 lb Body Surface Area (BSA) : 2.15 m2 Body Mass Index : 36.1 kg/m2 (HI) [place] Body Weight : 61 kg BHAVANI MCCORMICK [...] BHAVANI MCCORMICK RN - 07/08/2019 9:48 EST [place] Suicide Severity Rating Scale (C-SSRS) CSSRS Past [...] Sandie Legal Guardian : No Support Person/Patient Manager Payroll : Yes Support Person/Pt Rep Name : spouse Jose Frank Contact Password : [email or web address] Support Person/Pt Rep Contact Information : [phone] Want Family/Rep/Phys Notified of Admit : No Emergency Contact #1 : Jose Emergency Contact #1 Emergency Contact #1 Relationship : spouse Emergency Contact #2 : - Emergency Contact #2 Phone Number : - Emergency Contact #2 Relationship : - Primary Language : Yi Preferred Communication Mode : Verbal Communication Barrier [...] BHAVANI MCCORMICK RN - 07/08/2019 9:48 EST documented in this encounter Plan of Treatment Not on file documented as of this encounter Visit Diagnoses Not on filedocumented in this encounter
--- OUTSIDE RECORDS SUMMARY | 2025-03-08 08:38 | XMS_ITS | Encounter Summary ---
Author Organization [employer] ([place], [place], [place], [place]) Address [address] [place] [address] Care Team Providers Care Airline Pilot/First Officer Name Role Phone Unavailable Primary Care Provider Unavailabl e Encounter Details Date Type Department Care Team (Late st Contact Info) Description 08/01/2019 Transcribed Document [facility] [place] [facility] [place] [address] ProviderSonia MD [facility] [place], [place] [address] Social History Tobacco Use Types Packs/Day Years Used Date Smoking Tobacco: Never Assessed Comments Unknown Sex and Gender Information Value Date Recorded Sex Assigned at Not on file Legal Sex Female 1:42 PM CDT Gender Identity Not on file Sexual Orientation Not on file documented as of this encounter Miscellaneous Notes * Cerner Conversion Note - Sonia ProviderMD - 08/01/2019 2:46 PM BRAZING FURNACE FEEDER Patient: SANDIE AMARO Age: 63 Years Sex: [...] Patient medically ready to be discharged to nursing home facility VTE Prophylaxis - Medical Sequential Compression [...] 1 Supp, Rectal, 1-Time, PRN Flonase, 1 Sevier, Nostrils Both, BID Florastor, 250 mg= 1 [...] No 08/01/2019 03:42 EST Electronically signed by [facility] Conversion Resident Care Associate Cerner at 11/19/2022 8:23 PM CDT documented in this encounter Plan of Treatment Not on file documented as of this encounter Visit Diagnoses Not on filedocumented in this encounter
--- OUTSIDE RECORDS SUMMARY | 2025-03-08 08:38 | XMS_ITS | Encounter Summary ---
Author Organization [employer] ([place], [place], [place]) Address [address] [place] [address] Care Team Providers Care Manufacturing Engineer Name Role Phone Unavailable Primary Care Provider Unavailabl e Encounter Details Date Type Department Care Team (Late st Contact Info) Description 08/02/2019 Transcribed Document [facility] [place] [address] [place] [address] ProviderSonia MD [address] [place], [place] [address] Social History Tobacco Use Types Packs/Day Years Used Date Smoking Tobacco: Never Assessed Comments Unknown Sex and Gender Information Value Date Recorded Sex Assigned at Not on file Legal Sex Female 1:42 PM CDT Gender Identity Not on file Sexual Orientation Not on file documented as of this encounter Miscellaneous Notes * Cerner Conversion Note - Sonia Boogie MD - 08/02/2019 10:41 AM LIFE SKILLS CONSULTANT Final Discharge Planning Entered On: 08/02/2019 10:49 EST Performed On: 08/02/2019 10:41 EST by NICHOLAS HOGUE, RN-Recapper Final Discharge Planning Discharge Arrangements : Patient [...] : IRF -Inpatient Rehabilitation Facility-[facility] NICHOLAS HOGUE, RN-Recapper - 08/02/2019 10:41 EST Final Narrative Note Final Narrative Note : Received call from Ann who states the pt has a bed on [facility] today in acute in-pt rehab. No choice form need be signed as this is the only facility that provides this level of care in [place]. IM was reviewed with pt and spouse and after discussion with PT, determination was made that pt is able to be transferred by private vehicle with stand pivot with gait belt into and out of vehicle. Her spouse is agreeable to transport the pt to [facility]. CM notified the bedside RN and the physician, Dr. Waterman. CM will fax d/c summary when available. No further d/c needs identified. NICHOLAS HOGUE, RN-Recapper - 08/02/2019 10:41 EST Electronically signed by Raman [facility] Conversion Change Over Cerner at 11/19/2022 8:37 PM CDT documented in this encounter Plan of Treatment Not on file documented as of this encounter Visit Diagnoses Not on filedocumented in this encounter
--- OUTSIDE RECORDS SUMMARY | 2025-03-08 08:38 | XMS_ITS | Encounter Summary ---
Author Organization [employer] ([place], [place], [place], [place]) Address [address] [place] [address] Care Team Providers Care Phone Banker Name Role Phone Unavailable Primary Care Provider Unavailabl e Encounter Details Date Type Department Care Team (Late st Contact Info) Description 08/02/2019 Transcribed Document [facility] [place] Family [place] [address] [place] [address] ProviderSonia MD [address] [place], [place] [address] Social History Tobacco Use Types Packs/Day Years Used Date Smoking Tobacco: Never Assessed Comments Unknown Sex and Gender Information Value Date Recorded Sex Assigned at Not on file Legal Sex Female 1:42 PM CDT Gender Identity Not on file Sexual Orientation Not on file documented as of this encounter Miscellaneous Notes * [employer]ner Conversion Note - Historical ProviderMD - 08/02/2019 11:31 AM OIL RIG DRILLER Discharge Summary, OT Entered On: 08/02/2019 11:32 EST Performed On: 08/02/2019 11:31 EST by CAM KELLY OTR/L Discharge Summary, OT Reason for Discharge : Discharged from hospital CAM KELLY OTR/L - 08/02/2019 11:31 EST Discharge Summary Comment, OT : per case mgt pt has been approved [facility] from which she will benefit from continued OT, remaining goals not met per eval however progressing daily toward goals and motivated CAM KELLY OTR/L - 08/02/2019 11:32 EST documented in this encounter Plan of Treatment Not on file documented as of this encounter Visit Diagnoses Not on filedocumented in this encounter
--- OUTSIDE RECORDS SUMMARY | 2025-03-08 08:38 | XMS_ITS | Encounter Summary ---
Author Organization [employer] ([place], [place], [place], [place]) Address [address] [place] [address] Care Team Providers Care Cream Maker Name Role Phone Unavailable Primary Care Provider Unavailabl e Encounter Details Date Type Department Care Team (Late st Contact Info) Description 07/08/2019 Transcribed Document [facility] [place] [facility] [place] [address] ProviderSonia MD [address] [place] [id number] Social History Tobacco Use Types Packs/Day Years Used Date Smoking Tobacco: Never Assessed Comments Unknown Sex and Gender Information Value Date Recorded Sex Assigned at Not on file Legal Sex Female 1:42 PM CDT Gender Identity Not on file Sexual Orientation Not on file documented as of this encounter Miscellaneous Notes * Cerner Conversion Note - Sonia Boogie MD - 07/08/2019 10:11 AM DISPENSING AND MEASURING OPTICIAN Patient: SANDIE FRANK Age: 63 Years Sex: Female : 1955 Chief Complaint Right Hip Pain Primary Care Provider LEOPOLDO TEJADA (REF)MD-[facility] History of Present Illness This patient is [...] eyes 2008, choleycystectomy, finger index left hand 1970 fx repair, Foot Surgery, kidney stones, left wrist surgery with plate, Pain pump insertion 01/2006, right shoulder replacement. Home Medications (37) Active albuterol 2.5 mg/3 mL (0.083%) inhalation solution 2.5 mg = 3 mL, PRN, Inhalation, Q4H alendronate 70 mg, Oral, Weekly Alrex 0.2% ophthalmic suspension 1 Drop, Eyes Both, BID azelastine 205.5 mcg/inh (0.15%) nasal spray 2 [place], PRN, Nasal, BID biotin 5 mg, Oral, [...] 50,000 Int Units = 1 Cap, Oral, B6Cplbq Dilaudid donepezil 23 mg, Oral, Daily famotidine [...]
--- OUTSIDE RECORDS SUMMARY | 2025-03-08 08:38 | XMS_ITS | Encounter Summary ---
Author Organization [employer] ([place], [place], [place], [place]) Address [address] [place] [address] Care Team Providers Care Web Production Designer Name Role Phone Unavailable Primary Care Provider Unavailabl e Encounter Details Date Type Department Care Team (Late st Contact Info) Description 07/31/2019 Transcribed Document [facility] [place] [address] [place] [address] ProviderSonia MD [address] [place], [place] [address] Social History Tobacco Use Types Packs/Day Years Used Date Smoking Tobacco: Never Assessed Comments Unknown Sex and Gender Information Value Date Recorded Sex Assigned at Not on file Legal Sex Female 1:42 PM CDT Gender Identity Not on file Sexual Orientation Not on file documented as of this encounter Miscellaneous Notes * Cerner Conversion Note - Sonia ProviderMD - 07/31/2019 2:[address] MAGISTRATE Pain Assessment Entered On: 07/31/2019 15:12 EST [...]
--- OUTSIDE RECORDS SUMMARY | 2025-03-08 08:38 | XMS_ITS | Encounter Summary ---
Author Organization [employer] ([place], [place], [place], [place]) Address [address] [place] [address] Care Team Providers Care Dermatology Teacher Name Role Phone Unavailable Primary Care Provider Unavailabl e Encounter Details Date Type Department Care Team (Late st Contact Info) Description 07/31/2019 Transcribed Document [facility] Radiology [address] [place] [address] Diaz Vega MD [address] [place] [address] [address] [place] [id number] Social History Tobacco Use Types Packs/Day Years [...] hx cataract surgery bilateral / SNOMED CT 2239686461 / Confirmed high blood pressure / SNOMED CT 9732014538 / Confirmed uses Renexa / SNOMED CT 2775204 / Confirmed hx. chest pain / SNOMED CT 3116568270 / Confirmed high cholesterol / SNOMED CT 36994293 / Confirmed hx colon resection secondary decreased function / SNOMED CT 1798795126 / Confirmed chronic diarrhea / SNOMED CT 572013948 / Confirmed GERD / SNOMED CT 680617951 / Confirmed kidney stone right kidney current and hx / SNOMED CT 755454739 / Confirmed hx. frequent UTIs / SNOMED CT 7812502276 / Confirmed restless leg syndrome / SNOMED CT 33018028 / Confirmed chronic back pain / SNOMED CT 885461746 / Confirmed fibromyalgia / SNOMED CT 23791302 / Confirmed rheumatoid arthritis / SNOMED CT 944037874 / Confirmed Hypothyroidism / SNOMED CT 78093252 / Confirmed depression / SNOMED CT 05777274 / Confirmed migraine headaches / SNOMED CT 893518629 / Confirmed peripheral neuropathy / SNOMED CT 76469340 / Confirmed chronic hydrocort use / SNOMED CT 7263368 / Confirmed Adrenal insufficiency / SNOMED CT 9448513162 / Confirmed Arthritis / SNOMED CT 6005279 / Confirmed Aortic valve stenosis / SNOMED CT 306371111 / Confirmed At risk for sleep apnea / IMO 82257410 / Confirmed Glaucoma / SNOMED CT 20765991 / Confirmed Cataracts, both eyes / SNOMED CT 394265355 / Confirmed Osteoporosis / SNOMED CT 600392364 / Confirmed Seasonal allergies / SNOMED CT 6395712078 / Confirmed Asthma / SNOMED CT 267387790 / Confirmed Vitamin D deficiency / SNOMED CT 99016865 / Confirmed Dementia / SNOMED CT 86559646 / Confirmed Chronic kidney disease / SNOMED CT 9505418619 / Confirmed B12 deficiency / SNOMED CT 920264447 / Confirmed Pneumonia / SNOMED CT 597568630 / Confirmed Resolved: Hypotension / SNOMED CT 88497107 Canceled: adrenal insufficiency / SNOMED CT 0398235467 Canceled: Hyperthyroidism / SNOMED CT 42455BVR-[id number], Active Problems (33) Adrenal insufficiency Aortic valve [...] mg, Rectal, 1-Time, PRN: Constipation Flonase: 1 [place], Nostrils Both, BID Florastor: 250 mg, Oral, [...] intl units oral capsule: 1 Cap, Oral, D3Nkimk, 0 Refill(s) Dilaudid: pain pump, 0 Refill(s) Flax Seed Oil: 1,200 mg, Oral, BID, 0 Refill(s) Flonase: 1 [place], Nostrils Both, BID Lunesta: 3 mg, Oral, [...] azelastine 205.5 mcg/inh (0.15%) nasal spray: 2 [place], Nasal, BID, PRN: for allergy symptoms, 0 [...] azelastine 205.5 mcg/inh (0.15%) nasal spray 2 [place], PRN, Nasal, BID biotin 5 mg, Oral, [...] 50,000 Int Units = 1 Cap, Oral, Q5Phkyd Dilaudid donepezil 23 mg, Oral, Daily famotidine 40 mg, Oral, BID Flax Seed Oil 1,200 mg, Oral, BID Flonase 1 [place], Nostrils Both, BID gabapentin 100 mg oral [...] Oral, QAM fluticasone 0.05% nasal spray 1 [place], Nostrils Both, BID gabapentin 100 mg cap [...] Patient medically ready to be discharged to senior living facility documented in this encounter Plan of Treatment Not on file documented as of this encounter Visit Diagnoses Not on filedocumented in this encounter
--- OUTSIDE RECORDS SUMMARY | 2025-03-08 08:39 | XMS_ITS | Encounter Summary ---
Author Organization [employer] ([place], [place], [place], [place]) Address [address] [place] [address] Care Team Providers Care Calendering Machine Operator Name Role Phone Unavailable Primary Care Provider Unavailabl e Encounter Details Date Type Department Care Team (Late st Contact Info) Description 06/21/2020 Transcribed Document [facility] [place] [facility] [place] [address] ProviderSonia MD [address] [place], [place] [address]521 Social History Tobacco Use Types Packs/Day Years Used Date Smoking Tobacco: Never Assessed Comments Unknown Sex and Gender Information Value Date Recorded Sex Assigned at Not on file Legal Sex Female 1:42 PM CDT Gender Identity Not on file Sexual Orientation Not on file documented as of this encounter Miscellaneous Notes * Cerner Conversion Note - Sonia Boogie MD - 06/21/2020 9:01 AM RN FLOAT Patient Education Materials Follows: Monitored Anesthesia Care, [...] eating solid foods. General instructions ??? Take vwvu-fqd-xrrpycf and prescription medicines only as told by [...] 11/09/2016 Document Revised: 10/18/2018 Document Reviewed: 11/09/2016 [employer] Patient Education ? 2020 [employer] Hemorrhoids Hemorrhoids are swollen veins that [...] times a day. General instructions ??? Take auxn-hgt-dqufemo and prescription medicines only as told by [...] 04/28/2009 Document Revised: 07/28/2019 Document Reviewed: 12/09/2018 [employer] Patient Education ? 2020 [employer] Colonoscopy, Adult, Care After This sheet gives [...] soft and easy to digest. ??? Take jzgd-goo-bipjsuv or prescription medicines only as told by [...] 08/22/2011 Document Revised: 05/20/2018 Document Reviewed: 04/13/2017 [employer] Patient Education ? 2020 [employer] documented in this encounter Plan of Treatment Not on file documented as of this encounter Visit Diagnoses Not on filedocumented in this encounter
--- OUTSIDE RECORDS SUMMARY | 2025-03-08 08:39 | XMS_ITS | Encounter Summary ---
Author Organization [employer] ([place], [place], [place], [place]) Address [address] [place] [address] Care Team Providers Care Director Design Name Role Phone Unavailable Primary Care Provider Unavailabl e Encounter Details Date Type Department Care Team (Late st Contact Info) Description 07/23/2019 Transcribed Document [facility] [place] [facility] [place] [address] ProviderSonia MD [facility] [place], [place] [address] Social History Tobacco Use Types Packs/Day Years Used Date Smoking Tobacco: Never Assessed Comments Unknown Sex and Gender Information Value Date Recorded Sex Assigned at Not on file Legal Sex Female 1:42 PM CDT Gender Identity Not on file Sexual Orientation Not on file documented as of this encounter Miscellaneous Notes * Cerner Conversion Note - Sonia ProviderMD - 07/23/2019 5:06 AM AEROSPACE PROJECT MANAGER Pain Assessment Entered On: 08/01/2019 4:02 EST [...]
--- OUTSIDE RECORDS SUMMARY | 2025-03-08 08:39 | XMS_ITS | Encounter Summary ---
Author Organization [employer] ([place], [place], [place], [place]) Address [address] [place] [address] Care Team Providers Care Instructional Media Services Technician Name Role Phone Unavailable Primary Care Provider Unavailabl e Encounter Details Date Type Department Care Team (Late st Contact Info) Description 08/02/2019 Transcribed Document [facility] [place] Family Medicine [address] [place] [address] ProviderSonia MD [address] [place], [place] [address] Social History Tobacco Use Types Packs/Day Years Used Date Smoking Tobacco: Never Assessed Comments Unknown Sex and Gender Information Value Date Recorded Sex Assigned at Not on file Legal Sex Female 1:42 PM CDT Gender Identity Not on file Sexual Orientation Not on file documented as of this encounter Miscellaneous Notes * Cerner Conversion Note - Sonia ProviderMD - 08/02/2019 2:00 AM NNP Concrete Paving Machine Operator Details Entered On: 08/02/2019 1:26 EST Performed [...] Priti Davenport RN - 08/02/2019 1:26 EST documented in this encounter Plan of Treatment Not on file documented as of this encounter Visit Diagnoses Not on filedocumented in this encounter
--- OUTSIDE RECORDS SUMMARY | 2025-03-08 08:39 | XMS_ITS | Encounter Summary ---
Author Organization [employer] ([place], [place], [place], [place]) Address [address] [place] [address] Care Team Providers Care Ballpoint Pen Assembly Machine Operator Name Role Phone Unavailable Primary Care Provider Unavailabl e Encounter Details Date Type Department Care Team (Late st Contact Info) Description 07/23/2019 Transcribed Document [facility] Family Medicine [address] [place] [address] ProviderSonia MD [address] [place], [place] [address] Social History Tobacco Use Types Packs/Day Years Used Date Smoking Tobacco: Never Assessed Comments Unknown Sex and Gender Information Value Date Recorded Sex Assigned at Not on file Legal Sex Female 1:42 PM CDT Gender Identity Not on file Sexual Orientation Not on file documented as of this encounter Miscellaneous Notes * Cerner Conversion Note - Historical ProviderMD - 07/23/2019 2:00 AM CARBON CLEANER Boat Hoist Operator Details Entered On: 07/23/2019 1:05 EST Performed On: 07/23/2019 2:00 EST by DANTE MASCORRO, Broiler Manager-Nursing Order Details Transport Mode Order Detail : Bed (including specialty) Isolation Precautions Order Detail : Standard Precautions Order Detail : 0 IV Order Detail : 1 Oxygen Order Detail : 1 Nurse Collect Order Detail : 0 Lift/Transfer : Moderate assist Central Line Order Detail : No Room Service : Appropriate Arterial Line : No DANTE MASCORRO, Broiler Manager-Nursing - 07/23/2019 1:05 EST documented in this encounter Plan of Treatment Not on file documented as of this encounter Visit Diagnoses Not on filedocumented in this encounter
--- OUTSIDE RECORDS SUMMARY | 2025-03-08 08:39 | XMS_ITS | Encounter Summary ---
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 Physical therapy strongly agreed that he needs to go to inpatient rehabilitation either [place] are at the [facility]. No fevers or chills. No nausea vomiting. [...] list: Medical Adrenal insufficiency / SNOMED CT 4888715422 / Confirmed Aortic valve stenosis / SNOMED CT 391958207 / Confirmed Arthritis / SNOMED CT 7208802 / Confirmed Asthma / SNOMED CT 600480454 / Confirmed At risk for sleep apnea / IMO 97927704 / Confirmed Cataracts, both eyes / SNOMED CT 172270008 / Confirmed chronic back pain / SNOMED CT 537367770 / Confirmed chronic diarrhea / SNOMED CT 150710698 / Confirmed Chronic kidney disease / SNOMED CT 7084034869 / Confirmed B12 deficiency / SNOMED CT 104178780 / Confirmed Dementia / SNOMED CT 76844814 / Confirmed depression / SNOMED CT 64719523 / Confirmed uses Renexa / SNOMED CT 9886672 / Confirmed chronic hydrocort use / SNOMED CT 9947743 / Confirmed peripheral neuropathy / SNOMED CT 90221970 / Confirmed GERD / SNOMED CT 654713145 / Confirmed fibromyalgia / SNOMED CT 64672222 / Confirmed Glaucoma / SNOMED CT 30691958 / Confirmed migraine headaches / SNOMED CT 274928072 / Confirmed hx cataract surgery bilateral / SNOMED CT 7315211839 / Confirmed hx. chest pain / SNOMED CT 8355270515 / Confirmed hx colon resection secondary decreased function / SNOMED CT 7717059026 / Confirmed hx. frequent UTIs / SNOMED CT 4053029418 / Confirmed high cholesterol / SNOMED CT 15807292 / Confirmed high blood pressure / SNOMED CT 3066251625 / Confirmed Hypothyroidism / SNOMED CT 05634196 / Confirmed kidney stone right kidney current and hx / SNOMED CT 159658332 / Confirmed Osteoporosis / SNOMED CT 568230290 / Confirmed Pneumonia / SNOMED CT 294196798 / Confirmed restless leg syndrome / SNOMED CT 36955481 / Confirmed rheumatoid arthritis / SNOMED CT 714119947 / Confirmed Seasonal allergies / SNOMED CT 2180707981 / Confirmed Vitamin D deficiency / SNOMED CT 52037674 / Confirmed Resolved: Hypotension / SNOMED CT 10003294 Canceled: adrenal insufficiency / SNOMED CT 8079838357 Canceled: Hyperthyroidism / SNOMED CT 84445RCS-[id number], Active Problems (33) Adrenal insufficiency Aortic valve [...] azelastine 137 mcg/inh (0.1%) nasal spray: 2 [place], Nasal, BID, PRN: Allergies budesonide: 0.5 mg, [...] intl units oral capsule: 1 Cap, Oral, H3Jewaq, 0 Refill(s) Dilaudid: pain pump, 0 Refill(s) Flax Seed Oil: 1,200 mg, Oral, BID, 0 Refill(s) Flonase: 1 [place], Nostrils Both, BID Lunesta: 3 mg, Oral, [...] azelastine 205.5 mcg/inh (0.15%) nasal spray: 2 [place], Nasal, BID, PRN: for allergy symptoms, 0 [...] azelastine 205.5 mcg/inh (0.15%) nasal spray 2 [place], PRN, Nasal, BID biotin 5 mg, Oral, [...] 50,000 Int Units = 1 Cap, Oral, B4Vhoms Dilaudid donepezil 23 mg, Oral, Daily famotidine 40 mg, Oral, BID Flax Seed Oil 1,200 mg, Oral, BID Flonase 1 [place], Nostrils Both, BID gabapentin 100 mg oral [...] azelastine 137 mcg/spray nasal 30 mL 2 [place], Nasal, BID bisacodyl 10 mg supp 10 [...] (JUL 23:) 97 (JUL 23:29) 97 (JUL 23:) Mon HR 90 (JUL 23 16:56) 77 (JUL 23 06:17) 93 (JUL 22 22:47) Resp Rate 16 (JUL 23 12:53) 16 (JUL 22 18:58) 20 (JUL 23 02:17) SBP 100 (JUL 23 12:53) 92 (JUL 22 18:58) 118 (JUL 22 22:47) DBP L 49 (JUL 23:53) L 43 (JUL 23 09:40) 60 (JUL 23:) MAP 61 (JUL 23 12:53) 53 (JUL 23 09:40) 71 (JUL 23:17) SpO2 L 93 (JUL 23 12:53) L 88 (JUL 23 09:40) 100 (JUL 23:17) Physical Examination VS/Measurements Vitals Signs (last 24 hrs) Last Charted Minimum Maximum Temp 97.7 (JUL 23 09:40) 97.7 (JUL 23 09:40) 98.9 (JUL 22 22:47) Apical HR 97 (JUL 23:29) 97 (JUL 23:29) 97 (JUL 23:29) Mon [...] EST Height Source Stated Height Entry Format [place] Height/Length, PERUVIAN (ft) 5 ft Height/Length PERUVIAN 7 Inch CLINICALHEIGHT 170.18 cm [place] Body Weight 61 kg Weight Source Standing scale Weight Entry Format [place] Weight [place] lb 230 lb CLINICALWEIGHT 104.55 kg Body Surface Area (BSA) 2.15 m2 Body Mass Index 36.1 kg/m2 NC 07/22/2019 6:29 EST Height Source Stated Height Entry Format [place] Height/Length, PERUVIAN (ft) 5 ft Height/Length PERUVIAN 7 Inch CLINICALHEIGHT 170.18 cm [place] Body Weight 61 kg Weight Source Standing scale Weight Entry Format [place] Weight [place] lb 230 lb CLINICALWEIGHT 104.55 kg Body Surface Area (BSA) 2.15 m2 Body Mass Index 36.1 kg/m2 NC 07/22/2019 4:50 EST Height Source Not Done: [...] likely need it. Hemoglobin 9.5, creatinine 0.9. [employer] dictation system used. Computer program makes numerous spelling grammar mistakes. If you have any questions or concerns do not hesitate call Dr. Travis Lux at cell phone number [phone]. documented in this encounter Plan of Treatment Not on file documented as of this encounter Visit Diagnoses Not on filedocumented in this encounter
--- OUTSIDE RECORDS SUMMARY | 2025-03-08 08:39 | XMS_ITS | Encounter Summary ---
Author Organization [employer] ([place], [place], [place], [place]) Address [address] [place] [address] Care Team Providers Care Biochemical Development Engineer Name Role Phone Unavailable Primary Care Provider Unavailabl e Encounter Details Date Type Department Care Team (Late st Contact Info) Description 07/22/2019 Transcribed Document [facility] [place] [address] [place] [address] ProviderSonia MD [address] [place], [place] [address] Social History Tobacco Use Types Packs/Day Years Used Date Smoking Tobacco: Never Assessed Comments Unknown Sex and Gender Information Value Date Recorded Sex Assigned at Not on file Legal Sex Female 1:42 PM CDT Gender Identity Not on file Sexual Orientation Not on file documented as of this encounter Miscellaneous Notes * Cerner Conversion Note - Sonia ProviderMD - 07/22/2019 10:00 PM BOY'S ADVISER Pain Assessment Entered On: 07/23/2019 1:04 EST Performed On: 07/22/2019 23:59 EST by DANTE MASCORRO, Fondant Cooker-Nursing Intervention Information: acetaminophen Performed by DANTE MASCORRO, Fondant Cooker-Nursing on 07/22/2019 22:59:00 EST acetaminophen,1000mg Oral Pain Assessment Pain Assessment : Follow-up assessment Pain Scale Used : FACES Pain Intervention, Drug : Medicated Pain Improved by Intervention : Yes DANTE MASCORRO, Fondant Cooker-Nursing - 07/23/2019 1:03 EST Pain Scale Intensity : 3 DANTE MASCORRO Fondant Cooker-Nursing - 07/23/2019 1:03 EST Image 4 - Images currently included in the form version of this document have not been included in the text rendition version of the form. documented in this encounter Plan of Treatment Not on file documented as of this encounter Visit Diagnoses Not on filedocumented in this encounter
--- OUTSIDE RECORDS SUMMARY | 2025-03-08 08:39 | XMS_ITS | Encounter Summary ---
[facility] Organization [facility] Address [address] [place] [address] Care Team Providers Care Customer Supply Coordinator Name Role Phone Marc Rodriguez MD Primary Care Provider [phone] Encounter Details Date Type Department Care Team (Late st Contact Info) Description 02/08/2016 External CPT II SURVEY [facility] - [employer] Social History Tobacco Use Types Packs/Day Years Used Date Smoking Tobacco: Never Alcohol Use Standard Drinks/Week Comments [...] Description 03/13/2025 9:45 AM EDT Office Visit [facility] CARDIOLOGY [address] [facility] [address] [address] Jimmy Duncan MD [address] [facility] [address] [place] [address] 06/26/2025 9:30 AM EST Procedure visit [facility] PULMONARY & CRITICAL CARE MEDICINE [address] [place] [address] 06/26/2025 10:00 AM EST Office Visit [facility] PULMONARY & [facility]ITICAL CARE MEDICINE [address] [id number] Kaitlin Joiner, CREATIVE STRATEGIST [address] [place] [address] documented as of this encounter Visit Diagnoses [...] as of this encounter Care Teams Customer Supply Coordinator Relationship Specialty Start Date End Date Marc Rodriguez MD [address] [facility] [address] [place] [address] PCP - General Adolescent Medicine 12/08/16 documented as of this encounter
--- OUTSIDE RECORDS SUMMARY | 2025-03-08 08:39 | XMS_ITS | Encounter Summary ---
Author Organization [employer] ([place], [place], [place], [place]) Address [address] [place] [address] Care Team Providers Care Field Research Associate Name Role Phone Unavailable Primary Care Provider Unavailabl e Encounter Details Date Type Department Care Team (Late st Contact Info) Description 08/02/2019 Transcribed Document [facility] [place] [facility] [place] [address] ProviderSonia MD [address] [place] [id number] Social History Tobacco Use Types Packs/Day Years Used Date Smoking Tobacco: Never Assessed Comments Unknown Sex and Gender Information Value Date Recorded Sex Assigned at Not on file Legal Sex Female 1:42 PM CDT Gender Identity Not on file Sexual Orientation Not on file documented as of this encounter Miscellaneous Notes * Cerner Conversion Note - Sonia ProviderMD - 08/02/2019 11:40 AM LOADER SEMICONDUCTOR DIES Patient: SANDIE FRANK Age: 63 Years Sex: Female : 1955 Admit Date 07/22/2019 04:50 Discharge Date No Discharge Date on Record Primary Care Provider LEOPOLDO TEJADA (REF[facility] Discharge Diagnosis S/p Right Total Hip [...] azelastine 205.5 mcg/inh (0.15%) nasal spray 2 [place], PRN, Nasal, BID biotin 5 mg, Oral, [...] 50,000 Int Units = 1 Cap, Oral, X3Tqldi donepezil 23 mg, Oral, Daily famotidine 40 mg, Oral, BID Flax Seed Oil 1,200 mg, Oral, BID Flonase 1 [place], Nostrils Both, BID gabapentin 100 mg oral [...] Collect Time Spent on Discharge 32 mins documented in this encounter Plan of Treatment Not on file documented as of this encounter Visit Diagnoses Not on filedocumented in this encounter
--- OUTSIDE RECORDS SUMMARY | 2025-03-08 08:39 | XMS_ITS | Encounter Summary ---
Author Organization [facility] Address [address] [place] [address] Care Team Providers Care Vegetable Thinner Name Role Phone Marc Rodriguez MD Primary Care Provider Encounter Details Date Type Department Care Team (Late st Contact Info) Description 02/10/2025 Telephone [facility] CARDIOLOGY [address] [facility] [address], [place] [address] Jimmy Duncan MD [address] [facility] [address] [place], [place] [id number] Social History Tobacco Use Types Packs/Day Years [...] Description 03/13/2025 9:45 AM EDT Office Visit [facility] [address] [facility] [address] [place] [address] Jimmy Duncan MD 3000 [facility] [address] [place] [address] 06/26/2025 9:30 AM EST Procedure visit [facility] MEDICINE [address] [facility] [address] 06/26/2025 10:00 AM EST Office Visit [facility] [address] [facility] [place] [address] Kaitlin Joiner, CHURCH WORKER [address] [place] [address] documented as of this encounter Visit Diagnoses Not on filedocumented in this encounter Care Teams Vegetable Thinner Relationship Specialty Start Date End Date Marc Rodriguez MD [address] [facility] [address] [place] [address] PCP - General Adolescent Medicine 12/08/16 documented as of this encounter
--- OUTSIDE RECORDS SUMMARY | 2025-03-08 08:39 | XMS_ITS | Encounter Summary ---
Author Organization [facility] Address [address] [place] [address] Care Team Providers Care Tire Balancer Name Role Phone Marc Rodriguez MD Primary Care Provider [phone] Encounter Details Date Type Department Care Team (Late st Contact Info) Description 11/27/2015 External CPT II GEOTHERMAL POWERPLANT MECHANIC - [facility] Social History Tobacco Use [...] Description 03/13/2025 9:45 AM EDT Office Visit [facility] CARDIOLOGY [address] [facility] [address] [address] Jimmy Duncan MD [address] [facility] [address] [place] [address] 06/26/2025 9:30 AM EST Procedure visit [facility] PULMONARY [facility]ITICAL CARE MEDICINE [address] [place] [address] 06/26/2025 10:00 AM EST Office Visit [facility] PULMONARY [facility] MEDICINE [address] [phone] Kaitlin Joiner, CLUB CAR ATTENDANT [address] [place] [address] documented as of this encounter Visit Diagnoses [...] documented as of this encounter Care Teams Tire Balancer Relationship Specialty Start Date End Date Marc Rodriguez MD [address] [facility] [address] [place] [address] PCP - General Adolescent Medicine 12/08/16 documented as of this encounter
--- OUTSIDE RECORDS SUMMARY | 2025-03-08 08:39 | XMS_ITS | Clinical Summary ---
Author Organization [employer] ([place]) Address [address] [place] [address] Care Team Providers Care Pouako [place] Maori Name Role Phone Unavailable Primary Care Provider [...]
--- OUTSIDE RECORDS SUMMARY | 2025-03-08 08:39 | XMS_ITS | Encounter Summary ---
Author Organization [employer] ([place]) Address [address] [place] [address] Care Team Providers Care Yarn Packer Name Role Phone Unavailable Primary Care Provider Unavailabl e Encounter Details Date Type Department Care Team (Late st Contact Info) Description 06/21/2020 Transcribed Document [facility] [place] Family Medicine [facility] [place] [address] ProviderSonia MD [address] [place], [place] [address] Social History Tobacco Use Types Packs/Day Years Used Date Smoking Tobacco: Never Assessed Comments Unknown Sex and Gender Information Value Date Recorded Sex Assigned at Not on file Legal Sex Female 1:42 PM CDT Gender Identity Not on file Sexual Orientation Not on file documented as of this encounter Miscellaneous Notes * Cerner Conversion Note - Sonia ProviderMD - 06/21/2020 8:45 AM SENIOR MOBILE WEB DEVELOPER [facility] PACU Summary Primary Physician: ANIVAL BROWN MD-GAE Finalized Date/Time: 06/21/20 09:43:13 Pt. Name: PREMSANDIE D.O.B./Sex: 1955 Female Med Rec #: [id number] Physician: ANIVAL BROWN MD-GAE Financial #: [id number] Pt. Type: E Room/Bed: [facility]/ Admit/Disch: 06/21/20 06:39:00 - Institution: [facility] PACU Case Times Entry 1 In PACU I 06/21/20 08:55:00 Ready for PACU 06/21/20 09:39:00 Discharge Discharge from PACU 06/21/20 09:40:00 Jeaneth KRAFT Endo PACU Case Times Audit 06/21/20 09:43:13 Seamless Tube Drawer: [id number] Modifier: [id number] <+> 1 Ready for PACU Discharge <+> 1 Discharge from PACU I Finalized By: Rosenda Hunter, RN Document Signatures Signed By: Rosenda Hunter RN 06/21/20 09:43 documented in this encounter Plan of Treatment Not on file documented as of this encounter Visit Diagnoses Not on filedocumented in this encounter
--- OUTSIDE RECORDS SUMMARY | 2025-03-08 08:39 | XMS_ITS | Encounter Summary ---
Author Organization [employer] ([place]) Address [address] [place] [address] Care Team Providers Care Merchandise Worker Name Role Phone Unavailable Primary Care Provider Unavailabl e Encounter Details Date Type Department Care Team (Late st Contact Info) Description 08/02/2019 Transcribed Document [facility] [place] [place] Family Medicine [facility], [place] [address] ProviderSonia MD [address] [place] [id number] Social History Tobacco Use Types Packs/Day Years Used Date Smoking Tobacco: Never Assessed Comments Unknown Sex and Gender Information Value Date Recorded Sex Assigned at Not on file Legal Sex Female 1:42 PM CDT Gender Identity Not on file Sexual Orientation Not on file documented as of this encounter Miscellaneous Notes * Cerner Conversion Note - Sonia ProviderMD - 08/02/2019 1:27 PM FRONT LINE SUPERVISOR Discharge Summary, PT Entered On: 08/02/2019 13:29 EST Performed On: 08/02/2019 13:27 EST by SUE HERNANDEZ PTA Discharge Summary Reason for Discharge : Discharged from hospital Discharged to, Therapy : Unit, rehabilitation SUE HERNANDEZ PTA - 08/02/2019 13:27 EST Discharge Summary Comment, PT : Patient will discharge tp rehab facility follow up from [facility] on 08/02/19 having met 1/3 acute [...] MAKEDA ANN, PT - 08/02/2019 14:04 EST [facility] Goals Other PT LTG Grid Goal #1 [...] increase safety for mobility at acute care ND. Pt will amb at leats 25 feet with RWx and no more than Aknita without LOB or safety concerns to faciilitate [...] being d/c home with family SUE HERNANDEZ, IN FLIGHT TECHNICIAN - 08/02/2019 13:27 EST SUE HERNANDEZ, IN FLIGHT TECHNICIAN - 08/02/2019 13:27 EST SUE HERNANDEZ, IN FLIGHT TECHNICIAN - 08/02/2019 13:27 EST SUE HERNANDEZ, IN FLIGHT TECHNICIAN - 08/02/2019 13:27 EST documented in this encounter Plan of Treatment Not on file documented as of this encounter Visit Diagnoses Not on filedocumented in this encounter
--- OUTSIDE RECORDS SUMMARY | 2025-03-08 08:39 | XMS_ITS | Encounter Summary ---
Author Organization [facility] Address [address] [place] [address] Care Team Providers Care Tool Technician Name Role Phone Marc Rodriguez MD Primary Care Provider [phone] Encounter Details Date Type Department Care Team (Late st Contact Info) Description 12/12/2015 External CPT II COORDINATOR OF EVALUATION - [facility] Social History Tobacco Use [...] 9:45 AM EDT Office Visit [facility] CARDIOLOGY [address] [facility] [address] [address] Jimmy Duncan MD [address] [facility] [address] [place] [address] 06/26/2025 9:30 AM EST Procedure visit [facility] PULMONARY & CRITICAL CARE MEDICINE [address] [place] [address] 06/26/2025 10:00 AM EST Office Visit [facility] PULMONARY & CRITICAL CARE MEDICINE [address] [phone] Kaitlin Joiner, MEAT PACKAGER [address] [place] [address] documented as of this encounter Visit Diagnoses [...] documented as of this encounter Care Teams Tool Technician Relationship Specialty Start Date End Date Marc Rodriguez MD [address] [facility] [address] [place] [address] PCP - General Adolescent Medicine 12/08/16 documented as of this encounter
--- OUTSIDE RECORDS SUMMARY | 2025-03-08 08:39 | XMS_ITS | Encounter Summary ---
Author Organization [employer] ([place]) Address [address] [place] [address] Care Team Providers Care High School Foreign Language Teacher Name Role Phone Unavailable Primary Care Provider Unavailabl e Encounter Details Date Type Department Care Team (Late st Contact Info) Description 07/22/2019 Transcribed Document [facility] Family Medicine [facility] [place] [address] ProviderSonia MD [address] [place], [place] [address] Social History Tobacco Use Types Packs/Day Years Used Date Smoking Tobacco: Never Assessed Comments Unknown Sex and Gender Information Value Date Recorded Sex Assigned at Not on file Legal Sex Female 1:42 PM CDT Gender Identity Not on file Sexual Orientation Not on file documented as of this encounter Miscellaneous Notes * Cerner Conversion Note - Sonia Boogie MD - 07/22/2019 8:11 AM PRINCIPAL STRATEGIST [facility] Main OR IntraOp Summary Primary Physician: PEE VILLAR MD-ORT Finalized Date/Time: 07/22/19 10:49:22 Pt. Name: PHYLLIS FRANK Jovana /Sex: 1955 Female Med Rec #: [id number] Physician: PEE VILLAR MD-ORT Financial #: [id number] Pt. Type: I Room/Bed: [facility]/ Admit/Disch: 07/22/19 04:50:00 - Institution: [facility] IntraOp Case Attendance Entry 1 Entry 2 Entry 3 Case Attendee Suzan Mora RN OTHER, ATTENDEE #2 OTHER, ATTENDEE #1 Role Performed Segment Block Layer, First Cell Saver Aluminum Molder Vendor Time In 07/22/19 07:39:00 07/22/19 07:55:00 [...] 5 Entry 6 Case Attendee MICHELLE CALL, SHADE FLOWERS, MINE NEVAREZ PA-C Role Performed REVIVAL CLERK/Nurse Margarine Maker Scrub, Second Physician assistant laboratory director Time In 07/22/19 07:39:00 07/22/19 07:39:00 07/22/19 [...] (REF) GANGA MEDINA CSA TECHNOLOGIST Role Performed Railroad Car Repair Supervisor Scrub, Weather Reporter, First Time In 07/22/19 07:39:00 07/22/19 07:39:00 [...] Suzan Mora, NICOLASA 07/22/19 09:37:19 07/22/19 09:37:19 [facility] IntraOp Case Attendance Audit 07/22/19 09:37:19 Picking Belt Operator: MARVEL Modifier: MARVEL 1 <+> Time Out [...] Procedure Hip Total Anterior Approach 07/22/19 09:24:13 Picking Belt Operator: MARVEL Modifier: MARVEL 3 <+> Time Out 3 <*> Procedure Hip Total Anterior Approach 7 <+> Time Out 7 <*> Procedure Hip Total Anterior Approach 9 <+> Time Out 9 <*> Procedure Hip Total Anterior Approach 07/22/19 09:10:21 Picking Belt Operator: MARVEL Modifier: MARVEL 1 <*> Case Attendee PEE VILLAR MD-ORT 1 <*> Role Performed Surgeon/Proceduralist, First 1 <*> Time In 07/22/19 08:08:00 1 <*> Procedure Hip Total Anterior Approach 2 <*> Case Attendee MICHELLE CALL CRNA 2 <*> Role Performed REVIVAL CLERK/Nurse Margarine Maker 2 <*> Time In 07/22/19 07:39:00 2 <*> Procedure Hip Total Anterior Approach 3 <*> Case Attendee MINE HERRERA PA-C 3 <*> Role Performed Physician assistant laboratory director 3 <*> Time In 07/22/19 08:45:00 3 <*> Procedure Hip Total Anterior Approach 3 <+> Other Attendee 4 <*> Case Attendee Suzan Mora, RN 4 <*> Role Performed Segment Block Layer, First 4 <*> Time In 07/22/19 07:39:00 [...] GANGA MEDINA CSA 7 <*> Role Performed Academic Associate, First 7 <*> Time In 07/22/19 07:39:00 7 <*> Procedure Hip Total Anterior Approach 8 <*> Case Attendee Tad Rose, TANNING CONSULTANT 8 <*> Role Performed Railroad Car Repair Supervisor 8 <*> Time In 07/22/19 07:39:00 8 <*> Procedure Hip Total Anterior Approach 9 <*> Case Attendee OTHER, ATTENDEE #1 9 <*> Role Performed Vendor 9 <*> Time In 07/22/19 07:39:00 9 <*> Procedure Hip Total Anterior Approach 9 <-> Other Attendee Chase JORDAN 10 <*> Case Attendee OTHER, ATTENDEE #2 10 <*> Role Performed Cell Saver Aluminum Molder 10 <*> Time In 07/22/19 07:55:00 10 <+> Time Out 10 <*> Procedure Hip Total Anterior Approach 11 <*> Case Attendee Aminah Au, Gantry Rigger 11 <*> Role Performed Assistive Personnel 11 <*> Time In 07/22/19 07:39:00 11 <*> Time Out 07/22/19 08:00:00 11 <*> Procedure Hip Total Anterior Approach 07/22/19 08:47:02 Picking Belt Operator: MARVEL Modifier: MARVEL 3 <*> Time In 07/22/19 07:39:00 3 <*> Procedure Hip Total Anterior Approach 07/22/19 08:30:33 Picking Belt Operator: MARVEL Modifier: MARVEL <+> 11 Case Attendee <+> 11 Role Performed <+> 11 Time In <+> 11 Time Out <+> 11 Procedure 07/22/19 08:29:26 Picking Belt Operator: MARVEL Modifier: MARVEL 9 <*> Case Attendee OTHER, ATTENDEE 9 <*> Procedure Hip Total Anterior Approach <+> 10 Case Attendee <+> 10 Role Performed <+> 10 Time In <+> 10 Procedure 07/22/19 08:25:53 Picking Belt Operator: MARVEL Modifier: MARVEL 1 <*> Procedure Hip [...] [facility] IntraOp Case Times Audit 07/22/19 09:37:14 Picking Belt Operator: MARVEL Modifier: MARVEL <+> 1 Out Room [...] 09:11:10 [facility] IntraOp Communication Audit 07/22/19 09:11:10 Picking Belt Operator: MARVEL Modifier: MARVEL <+> 2 Communication By [...] Sara, RN (RN) Last Modified By: Suzan Mora, Suzan Acuña, NICOLASA 07/22/19 08:18:39 07/22/19 09:10:50 [facility] IntraOp Counts Verification Audit 07/22/19 09:10:50 Picking Belt Operator: MARVEL Modifier: MARVEL 2 <*> Procedure Hip [...] [facility] IntraOp Counts Final Audit 07/22/19 09:30:27 Picking Belt Operator: MARVEL Modifier: MARVEL 1 <*> Procedure Hip [...] RN 07/22/19 08:19:56 [facility] IntraOp General Case Farm Operator 1 Case Information OR OR 05 SJE Case Level 1 Room Verified Yes Wound Class I - Clean Specialty SN Orthopedic Anesthesia Type General ASA Class 3 Diagnosis Preop Diagnosis MODERATE DJD RIGHT HIP Postop Diagnosis SEE POST OP NOTE Last Modified By: Suzan Mora RN 07/22/19 08:45:56 [facility] IntraOp General Case Data Audit 07/22/19 08:45:56 Picking Belt Operator: MARVEL Modifier: MARVEL 1 <*> Preop Diagnosis DJD RIGHT HIP [facility] IntraOp Implant Log Entry 1 Entry 2 Entry 3 Type Implant (Synthetic) Implant (Synthetic) Implant (Synthetic) Implant Log Implant Type Hardware Hardware Hardware Tissue Implant Type Implant LINER LGCL CUP 54MM SZ SHELL ACETAB 52MM 3 STEM HIP ORIGIN Identification [id number] Description Implant Quantity 1 1 1 Implant Site RIGHT HIP RIGHT HIP RIGHT HIP Implant Identification Model Number Implant Identification Serial Number Implant [id number] Identification Lot Number Implant Paxeon Reconstruction Paxeon Reconstruction Paxeon Reconstruction Identification Fingerprint Classifier Name: Implant [id number] Identification Catalog Number Implant Size Implant Has an Yes Yes Yes Expiration Date Implant Expiration 03/02/24 12/22/23 12/01/23 Date Wasted Radioactive Material Time Implanted Tissue Implant Continue for Tissue Implant Documentation Tissue Identification Number Graft Prep Per Fingerprint Classifier Instructions: Tissue Preparation Method: Reconstitution Solution: Reconstitution Solution Lot Number Reconstitution Solution Expiration Date: Thawing Solution Thawing Solution Lot Number Thawing Solution Expiration Date Preparation Materials, Other Preparation Materials, Other Lot Number Preparation Materials, Other Expiration Date Tissue Prepared/Processed By Fingerprint Classifier Paperwork Completed Implant Type Comment Last Modified By: Suzan Mora, Suzan Acuña RN Wellnitz, Sara, RN 07/22/19 09:09:53 07/22/19 09:09:53 07/22/19 09:45:20 Entry 4 Type Implant (Synthetic) Implant Log Implant Type Hardware Tissue Implant Type Implant HEAD FEM CERC [id number] 36MM Identification [id number] Description Implant Quantity 1 Implant Site RIGHT HIP Implant Identification Model Number Implant Identification Serial Number Implant [id number] Identification Lot Number Implant Harjeeteon Reconstruction Identification Fingerprint Classifier Name: Implant [id number] Identification Catalog Number Implant Size Implant Has an Yes Expiration Date Implant Expiration 06/02/24 Date Wasted Radioactive Material Time Implanted Tissue Implant Continue for Tissue Implant Documentation Tissue Identification Number Graft Prep Per Fingerprint Classifier Instructions: Tissue Preparation Method: Reconstitution Solution: Reconstitution Solution Lot Number Reconstitution Solution Expiration Date: Thawing Solution Thawing Solution Lot Number Thawing Solution Expiration Date Preparation Materials, Other Preparation Materials, Other Lot Number Preparation Materials, Other Expiration Date Tissue Prepared/Processed By Fingerprint Classifier Paperwork Completed Implant Type Comment Last Modified By: Suzan Mora RN 07/22/19 09:45:20 S[facility] IntraOp Implant Log Audit 07/22/19 09:45:20 Picking Belt Operator: MARVEL Modifier: MARVEL <+> 3 Implant Identification Description <+> 3 Implant Identification Lot Number <+> 3 Implant Identification Fingerprint Classifier Name: <+> 3 Implant Expiration Date <+> 3 Implant Identification Catalog Number <+> 4 Implant Identification Description <+> 4 Implant Identification Lot Number <+> 4 Implant Identification Fingerprint Classifier Name: <+> 4 Implant Expiration Date <+> 4 Implant Identification Catalog Number 07/22/19 09:09:53 Picking Belt Operator: MARVEL Modifier: WELLNISA <+> 1 Implant Identification Description <+> 1 Implant Identification Lot Number <+> 1 Implant Identification Fingerprint Classifier Name: <+> 1 Implant Expiration Date <+> 1 Implant Identification Catalog Number <+> 2 Implant Identification Description <+> 2 Implant Identification Lot Number <+> 2 Implant Identification Fingerprint Classifier Name: <+> 2 Implant Expiration Date <+> 2 Implant Identification Catalog Number [facility] IntraOp Intraoperative Assessment Entry 1 Handoff Method [...] [facility] IntraOp Intraoperative Assessment Audit 07/22/19 08:20:38 Picking Belt Operator: MARVEL Modifier: MARISSAALESSANDRAIsael <+> 1 Patient is [...] vancomycin 1Gm vial - ANESTHETIC 1000MG/10 ML [id number] YENNY-JIAN [id number] Combo Med List Time Administered Route of TOPICAL; MIXED W/ 25ML TOPICAL INJECTION Administration NACL Dose Dose 1000 1 Unit of Measure mg gram Volume 10ML Administered By PEE VILLAR CHRISTENSEN, CHRISTIAN, CHRISTENSEN, CHRISTIAN, MD-ORT MD-ORT MD-ORT Procedure Irrigation Irrigant Volume In Irrigant Volume Out Last Modified By: Suzan Mora, Suzan Acuña, Suzan Acuña RN 07/22/19 08:28:36 07/22/19 08:28:36 07/22/19 08:28:36 Entry 4 Medication/Irrigant heparin 1000units/ml 10ml - [id number] Combo Med List Time Administered Route of CELL SAVER Administration Dose Dose 37742 Unit of Measure units Volume 30ML Administered By OTHER, ATTENDEE #2 Procedure Irrigation Irrigant Volume In Irrigant Volume Out Last Modified By: Suzan Mora RN 07/22/19 08:29:49 S[facility] IntraOp Medication Admin Audit 07/22/19 08:29:49 Picking Belt Operator: MARVEL Modifier: MARISSAALESSANDRAIsael 4 <*> Medication/Irrigant heparin 1000units/ml 10ml - [id number] <+> Administered By SJE IntraOp Patient [...] By Suzan Mora, NICOLASA, MICHELLE CALL CRNA, Angely, Aminah, Gantry Rigger Position Verified Positioning Yes Verified by Anesthesia Positioning Yes Verified by Surgeon Last Modified By: Suzan Mora RN 07/22/19 08:35:00 SJE IntraOp Patient Positioning Audit 07/22/19 08:35:00 Picking Belt Operator: MARVEL Modifier: MARVEL 1 <*> Procedure Hip Total Anterior Approach 1 <*> Positioned By Suzan Mora RN SJNeal IntraOp Sign In Entry 1 Patient, Site, [...] SJE IntraOp Skin Prep Audit 07/22/19 10:49:21 Picking Belt Operator: MARVEL Modifier: MARVEL 1 <+> Methods 1 [...] [facility]JE IntraOp Surgical Procedures Audit 07/22/19 09:30:50 Picking Belt Operator: MARVEL Modifier: MARVEL 1 <*> Procedure Hip Total Anterior Approach 1 <+> Stop [facility] IntraOp Temp Regulation Devices Entry 1 Temp Regulation Temperature Forced Air Warming Regulation Device device Temperature 4765 Regulation Device Serial/Unit Number Temperature Upper body Regulation Site Temperature MICHELLE CALL, REVIVAL CLERK Regulation Device Applied by Last Modified By: [...] Modified By: Suzan Mora RN 07/22/19 08:36:21 SJNeal IntraOp X-Ray and Images Entry 1 X-Ray/Imaging Type Fluoroscopy Fluoroscopy Type C-Arm Site RIGHT HIP AND PELVIS Treatment Supervisor Name Tad Rose, TANNING CONSULTANT Protective Devices Yes Used Last Modified By: Suzan Mora RN 07/22/19 08:37:14 Case Comments <None> Finalized By: Suzan Mora, RN Document Signatures Signed By: Suzan Mora RN 07/22/19 09:45 Suzan Mora RN 07/22/19 10:49 Unfinalized History Date/Time Username Reason for Unfinalizing Freetext Reason for Unfinalizing 07/22/19 10:48 MARVEL Correct Documentation documented in this encounter Plan of Treatment Not on file documented as of this encounter Visit Diagnoses Not on filedocumented in this encounter
--- OUTSIDE RECORDS SUMMARY | 2025-03-08 08:39 | XMS_ITS | Encounter Summary ---
Author Organization [employer] ([place]) Address [address] [place] [address] Care Team Providers Care Guide Escort Name Role Phone Unavailable Primary Care Provider Unavailabl e Encounter Details Date Type Department Care Team (Late st Contact Info) Description 07/23/2019 Transcribed Document [facility] [place] Family Medicine [address] [place] [address] ProviderSonai MD [address] [place], [place] [address] Social History Tobacco Use Types Packs/Day Years Used Date Smoking Tobacco: Never Assessed Comments Unknown Sex and Gender Information Value Date Recorded Sex Assigned at Not on file Legal Sex Female 1:42 PM CDT Gender Identity Not on file Sexual Orientation Not on file documented as of this encounter Miscellaneous Notes * Cerner Conversion Note - Historical ProviderMD - 07/23/2019 5:00 AM CANS VACUUM TESTER Chart Check - Review Order Profile Entered On: 07/23/2019 5:25 EST Performed On: 07/23/2019 5:00 EST by DANTE MASCORRO, English Adjunct Faculty-Nursing Chart Check Powerplans Initiated/Discontinued as Appropriate : Yes All Active Orders Reviewed : Yes DANTE MASCORRO, English Adjunct Faculty-Nursing - 07/23/2019 5:25 EST documented in this encounter Plan of Treatment Not on file documented as of this encounter Visit Diagnoses Not on filedocumented in this encounter
--- OUTSIDE RECORDS SUMMARY | 2025-03-08 08:39 | XMS_ITS | Encounter Summary ---
[facility] Address [address] [place] [address] Care Team Providers Care Finisher Denture Name Role Phone Marc Rodriguez MD Primary Care Provider [phone] Reason for Visit * Reason Onset Date Comments DR. GOSS - SCHEDULING REQUEST 02/10/2025 Encounter Details Date Type Department Care Team (Late st Contact Info) Description 02/10/2025 Telephone [facility] [address] [facility] [address] [place] [phone] Jimmy Goss MD [address] [facility] [address] [address] DR. GOSS - SCHEDULING REQUEST Social History Tobacco Use Types Packs/Day Years [...] encounter Miscellaneous Notes * Telephone Encounter - Julian Herrera RegSched Rep - 02/10/2025 9:56 AM EDT SCHEDULED F/U APPT 03/13/25 9:45AM AND INPUT REFILL FOR CRESTOR * Telephone Encounter - Delilah Castillo RegSched Rep - 02/10/2025 9:28 AM EDT Caller: Sandie Frank Relationship to patient: Self Best call back number: [phone] Type of visit: FOLLOW UP Requested date: 03.13.25 Additional notes:PATIENT REQUESTING APPOINTMENT DUE TO BEING LOW ON CRESTOR MEDICATION. PATIENT ONLY HAS 5 DAYS LEFT. PATIENT STATES IT HAS BEEN A LONG TIME SINCE SHE HAS SEEN DR. GOSS. PATIENT IS REQUESTING 03.13.25 DUE TO HER BEING IN A WHEELCHAIR AND HER HAVING AN APPT THAT DAY. PLEASE CALL PATIENT WITH A GOOD DATE AND WHETHER HER MEDICATION CAN BE FILLED PRIOR TO APPOINTMENT. documented in this encounter Plan of Treatment Upcoming Encounters Date Type Department Care Team (Late st Contact Info) Description 03/13/2025 9:45 AM EDT Office Visit [facility] [address] [facility] [address], [place] [address] Jimmy Goss MD [address] [facility] [address] [place] [address] 06/26/2025 9:30 AM EST Procedure visit [facility] PULMONARY & [facility]ITICAL CARE MEDICINE [address] [facility] [place] [address] 06/26/2025 10:00 AM EST Office Visit [facility]UL[facility] MEDICINE [address] [facility] [place] [address] Kaitlin Joiner, GENERAL MANAGER IN TRAINING [address] [place] [address] documented as of this encounter Visit Diagnoses Not on filedocumented in this encounter Care Teams Finisher Denture Relationship Specialty Start Date End Date Marc Rodriguez MD [address] [place] [address] [place] [address] PCP - General Adolescent Medicine 12/08/16 documented as of this encounter
--- OUTSIDE RECORDS SUMMARY | 2025-03-08 08:39 | XMS_ITS | Encounter Summary ---
Author Organization [employer] ([place], [place], [place], [place]) Address [address] [place] [address] Care Team Providers Care Av Specialist Name Role Phone Unavailable Primary Care Provider Unavailabl e Encounter Details Date Type Department Care Team (Late st Contact Info) Description 06/21/2020 Transcribed Document [facility] Family Medicine [facility] [place] [address] ProviderSonia MD [facility] [place], [place] [address] Social History Tobacco Use Types Packs/Day Years Used Date Smoking Tobacco: Never Assessed Comments Unknown Sex and Gender Information Value Date Recorded Sex Assigned at Not on file Legal Sex Female 1:42 PM CDT Gender Identity Not on file Sexual Orientation Not on file documented as of this encounter Miscellaneous Notes * Cerner Conversion Note - Sonia ProviderMD - 06/21/2020 8:03 AM BRUSH STAINER Pre Procedure Adult Entered On: 06/21/2020 8:11 EST Performed On: 06/21/2020 8:03 EST by Ana Lima Rn Height and Weight, Clinical Dosing Height Source : Stated Height Entry Format : [place] Height, Feet : 5 ft(Converted to: 152 cm, 60 Inch) Height, Inches : 7 Inch(Converted to: 0 ft 7 Inch, 17.78 cm) Clinical Height : 170.18 cm Weight Source : Standing scale Weight Entry Format : [place] Clinical Dosing Weight : 86.82 kg Weight, Pounds : 191 lb Body Surface Area (BSA) : 1.98 m2 Body Mass Index : 30 kg/m2 (HI) [place] Body Weight : 61 kg Ana Lima [...] by NOELLE LYNCH, NICOLASA) Infectious Disease History Has the patient ever [...] Ana Lima Rn - 06/21/2020 8:03 EST Cecil Suicide Severity Rating Scale (C-SSRS) CSSRS Past [...] Sandie Legal Guardian : No Support Person/Patient Mail Handlers Supervisor : Yes Support Person/Pt Rep Name : spouse Jose Frank Contact Password : [email or web address] Support Person/Pt Rep Contact Information : [phone] Want Family/Rep/Phys Notified of Admit : Yes Name/Contact Info Fam/Rep Notified Adm : Ronny Frank (spouse) Name/Contact Info Physician Notified Adm : Marc Rodriguez Emergency Contact #1 : Ronny Frank Emergency Contact #1 Emergency Contact #1 Relationship : spouse Emergency Contact #2 : . Emergency Contact #2 Phone Number : . Emergency Contact #2 Relationship : . Primary Language : Bulgarian Preferred Communication Mode : Verbal Communication Barrier : None Practice Clinician Needed : No Ana Lima Rn - [...] apparent problem Joel Score : 22 Ana Lima Rn - 06/21/2020 8:03 EST Fall Risk [...] Scale Risk Level : 0-24 Low Risk [place]ora Fall Interventions : Bed in low position, Call device within reach, Wheels locked Ana Lima Rn - 06/21/2020 8:03 EST Valuables and Belongings Valuables and Belongings : Clothing Clothing : Common streetwear Clothing Disposition : Bedside Ana Lima Rn - 06/21/2020 8:03 EST documented in this encounter Plan of Treatment Not on file documented as of this encounter Visit Diagnoses Not on filedocumented in this encounter
--- OUTSIDE RECORDS SUMMARY | 2025-03-08 08:39 | XMS_ITS | Encounter Summary ---
Author Organization [employer] ([place], [place], [place], [place]) Address [address] [place] [address] Care Team Providers Care Civil Engineer Helper Name Role Phone Unavailable Primary Care Provider Unavailabl e Encounter Details Date Type Department Care Team (Late st Contact Info) Description 07/22/2019 Transcribed Document [facility] Family Medicine [address] [place] [address] ProviderSonia MD [address] [place], [place] [address] Social History Tobacco Use Types Packs/Day Years Used Date Smoking Tobacco: Never Assessed Comments Unknown Sex and Gender Information Value Date Recorded Sex Assigned at Not on file Legal Sex Female 1:42 PM CDT Gender Identity Not on file Sexual Orientation Not on file documented as of this encounter Miscellaneous Notes * Cerner Conversion Note - Sonia ProviderMD - 07/22/2019 2:00 PM DAIRY SCIENTIST Pain Assessment Entered On: 07/22/2019 18:30 EST [...]
--- OUTSIDE RECORDS SUMMARY | 2025-03-08 08:39 | XMS_ITS | Encounter Summary ---
[facility] Address [address] [place] [address] Care Team Providers Care Coding Assistant Name Role Phone Marc Rodriguez MD Primary Care Provider [phone] Encounter Details Date Type Department Care Team (Late st Contact Info) Description 03/06/2025 Telephone [facility] [address] [facility] [address] [address] Jimmy Duncan MD 3000 [facility] [address] [place] [address] Social History Tobacco Use Types Packs/Day Years [...] on file documented as of this encounter Progress Notes * Jai Fisher RegSched Rep - 03/07/2025 9:22 AM EDTAddended by: JAI FISHER on: 03/07/2025 09:22 AM Modules accepted: Orders documented in this encounter Miscellaneous Notes * Telephone Encounter - Malicote, Megha, MA - 03/06/2025 3:21 PM EDT Faxed orders to [phone] * Telephone Encounter - Keke Aguilar RegSched Rep - 03/06/2025 1:22 PM EDT Caller: Sandie Frank Relationship: Self Best call back number: . Telephone Information: What orders are you requesting (i.e. lab or imaging): LAB ORDERS In what timeframe would the patient need to come in: ASHLEY Where will you receive your lab/imaging services: [facility] Additional notes: PT ASKED IF OFFICE WILL PLEASE FAX LAB ORDERS TO [facility]. PT DOESN'T HAVE FAX NUMBER. documented in this encounter Plan of Treatment Upcoming Encounters Date Type Department Care Team (Late st Contact Info) Description 03/13/2025 9:45 AM EDT Office Visit [facility] [address] [facility] [address] [address] Jimmy Duncan MD [address] [facility] [address] [place] [address] 06/26/2025 9:30 AM EST Procedure visit [facility] PULMONARY & CRITICAL CARE MEDICINE [address] [place] [address] 06/26/2025 10:00 AM EST Office Visit [facility] PULMONARY [facility] CRITICAL CARE MEDICINE [address] [place] [address] Kaitlin Joiner, SOLID WASTE FACILITY OPERATOR [address] [place] [address] Scheduled Orders Name Type Priority Associated Diagnoses Orde r Schedule Basic Metabolic Panel Lab Routine Essential hypertension Expected: 03/06/2026 (Approximate), Expires: 06/06/2026 CBC & Differential Lab Panel Routine Essential hypertension Expected: 03/06/2026 (Approximate), Expires: 06/06/2026 Hepatic Function Panel Lab Routine Hyperlipidemia LDL goal <70 Expected: 03/06/2026 (Approximate), Expires: 06/06/2026 Lipid Panel Lab Routine Hyperlipidemia LDL goal <70 Expected: 03/06/2026 (Approximate), Expires: 06/06/2026 documented as of this encounter Visit Diagnoses Diagnosis Hyperlipidemia LDL goal <70- Primary Other and unspecified hyperlipidemia Essential hypertension Unspecified essential hypertension documented in this encounter Care Teams Coding Assistant Relationship Specialty Start Date End Date Marc Rodriguez MD [address] [place] [address] [address] PCP - General Adolescent Medicine 12/08/16 documented as of this encounter
--- OUTSIDE RECORDS SUMMARY | 2025-03-08 08:39 | XMS_ITS | Encounter Summary ---
Author Organization [employer] ([place], [place], [place], [place]) Address [address] [place] [address] Care Team Providers Care Housing Liaison Name Role Phone Unavailable Primary Care Provider Unavailabl e Encounter Details Date Type Department Care Team (Late st Contact Info) Description 08/02/2019 Transcribed Document [facility] [place] Medicine [facility] [place] [address] ProviderSonia MD [address] [place] [address] Social History Tobacco Use Types Packs/Day Years Used Date Smoking Tobacco: Never Assessed Comments Unknown Sex and Gender Information Value Date Recorded Sex Assigned at Not on file Legal Sex Female 1:42 PM CDT Gender Identity Not on file Sexual Orientation Not on file documented as of this encounter Miscellaneous Notes * Cerner Conversion Note - Sonia Boogei MD - 08/02/2019 12:03 PM PARACHUTE LINE TIER [address] , [place] [address] Patient Copy Patient Information: Name: SANDIE FRANK Current Date: 08/02/2019 12:03:10 : 1955 Patient Address: [address] [place] [address] DR SOLANO [place]O [phone] Patient Attending Physician: IRINEO DECKER MD Primary Care Provider: LEOPOLDO TEJADA (REF)MD-[facility] Primary Care Provider Discharge Diagnosis: Weight on Admission: 230 lb, 0 oz Comment: Follow-up Instructions: With: Address: When: PEE VILLAR MD[address] [place] [address] 11:15 AM Comments: Appointment has been made [...] (azelastine 205.5 mcg/inh (0.15%) nasal spray) 2 Hitchcock(s) Nasal Two Times A Day as needed [...] Times A Day. fluticasone nasal (Flonase) 1 Hitchcock(s) Nostrils Both Two Times A Day. formoterol [...] Barley. Bulgur wheat. Millet. Bran muffins. Popcorn. Meraux wafer crackers. Vegetables Sweet potatoes. Spinach. Kale. Artichokes. Cabbage. Broccoli. Green peas. Carrots. Squash. Fruits Berries. Pears. Apples. Oranges. Avocados. Prunes and raisins. Dried figs. Meats and Other Protein Sources [place], kidney, roland, and soy beans. Split peas. [...] lolis has 11 g of protein. ?? [place] seeds ??? 1 oz has 5.5 g [...] floor. ?? Place frequently used items in jecb-hu-alayq places ?? Keep electrical cables out of [...] ?? Using the bathroom. ?? Using household mat machine operator or toxic chemicals. ?? Touching or [...] extended-release form of this medicine is for oglemz-uxp-thbzc treatment of pain. This form of tramadol [...] against the law. Stop taking all other pqlhaa-suq-wfpbr narcotic pain medications when you start taking [...] may report side effects to FDA at 2-526-VGU-9652. What other drugs will affect tramadol? You [...] may affect tramadol. This includes prescription and sshk-apf-rpwuvkr medicines, vitamins, and herbal products. Not all [...] to ensure that the information provided by [employer]. ('[employer]') is accurate, up-to-date, and complete, but no guarantee is made to that effect. Drug information contained herein may be time sensitive. Collective information has been compiled for use by healthcare practitioners and consumers in the [place] and therefore Collective does not warrant that uses outside of the [place] are appropriate, unless specifically indicated otherwise. [employer] drug information does not endorse drugs, diagnose patients or recommend therapy. [employer] drug information is an informational resource designed [...] effective or appropriate for any given patient. [facility] does not assume any responsibility for any aspect of healthcare administered with the aid of information Collective provides. The information contained herein is not intended to cover all possible uses, directions, precautions, warnings, drug interactions, allergic reactions, or adverse effects. If you have questions about the drugs you are taking, check with your doctor, nurse or pharmacist. Copyright 9563-3540 [employer]. Version: 20.02. Revision Date: 05/16/2019. oxycodone (ox [...] The extended-release form of oxycodone is for zbzjjx-sig-ainvt treatment of pain and should not be [...] against the law. Stop taking all other psmnmi-xwj-fywdx narcotic pain medicines when you start taking [...] may report side effects to FDA at 4-371-LBT-7541. What other drugs will affect oxycodone? You [...] may affect oxycodone. This includes prescription and ujfi-bsj-gcsouyy medicines, vitamins, and herbal products. Not all [...] to ensure that the information provided by [employer]. ('[employer]') is accurate, up-to-date, and complete, but no guarantee is made to that effect. Drug information contained herein may be time sensitive. Collective information has been compiled for use by healthcare practitioners and consumers in the [place] and therefore Collective does not warrant that uses outside of the [place] are appropriate, unless specifically indicated otherwise. Collective's drug information does not endorse drugs, diagnose patients or recommend therapy. [employer] drug information is an informational resource designed [...] effective or appropriate for any given patient. Collective does not assume any responsibility for any aspect of healthcare administered with the aid of information Collective provides. The information contained herein is not intended to cover all possible uses, directions, precautions, warnings, drug interactions, allergic reactions, or adverse effects. If you have questions about the drugs you are taking, check with your doctor, nurse or pharmacist. Copyright 0337-1567 [employer]. Version: 13.03. Revision Date: 05/16/2019. hydromorphone (oral) [...] extended-release form of this medicine is for bwoxld-pen-iitac treatment of moderate to severe pain, not [...] against the law. Stop taking all other rkeiaq-tsk-jumsi narcotic pain medications when you start taking [...] may report side effects to FDA at 7-603-UEL-6274. What other drugs will affect hydromorphone? Opioid [...] drugs may affect hydromorphone, including prescription and dntc-mwb-nrhjjce medicines, vitamins, and herbal products. Not all [...] to ensure that the information provided by [employer]. ('[employer]') is accurate, up-to-date, and complete, but no guarantee is made to that effect. Drug information contained herein may be time sensitive. Collective information has been compiled for use by healthcare practitioners and consumers in the [place] and therefore Collective does not warrant that uses outside of the [place] are appropriate, unless specifically indicated otherwise. [employer] drug information does not endorse drugs, diagnose patients or recommend therapy. [employer]) drug information is an informational resource designed [...] effective or appropriate for any given patient. Collective does not assume any responsibility for any aspect of healthcare administered with the aid of information Collective provides. The information contained herein is not intended to cover all possible uses, directions, precautions, warnings, drug interactions, allergic reactions, or adverse effects. If you have questions about the drugs you are taking, check with your doctor, nurse or pharmacist. Copyright 9812-5360 [employer]. Version: 9.02. Revision Date: 06/30/2018. oxycodone (ox [...] The extended-release form of oxycodone is for ajfmee-qcm-hblhj treatment of pain and should not be [...] against the law. Stop taking all other kbxcsa-grm-otodw narcotic pain medicines when you start taking [...] may report side effects to FDA at 4-843-KIN-0460. What other drugs will affect oxycodone? You [...] may affect oxycodone. This includes prescription and dqyb-tin-vxlmtpm medicines, vitamins, and herbal products. Not all [...] to ensure that the information provided by [employer]. ('[employer]') is accurate, up-to-date, and complete, but no guarantee is made to that effect. Drug information contained herein may be time sensitive. Collective information has been compiled for use by healthcare practitioners and consumers in the [place] and therefore Collective does not warrant that uses outside of the [place] are appropriate, unless specifically indicated otherwise. [employer] drug information does not endorse drugs, diagnose patients or recommend therapy. [employer] drug information is an informational resource designed [...] effective or appropriate for any given patient. [employer] does not assume any responsibility for any aspect of healthcare administered with the aid of information Collective provides. The information contained herein is not intended to cover all possible uses, directions, precautions, warnings, drug interactions, allergic reactions, or adverse effects. If you have questions about the drugs you are taking, check with your doctor, nurse or pharmacist. Copyright 9526-5384 [employer]. Version: 13.03. Revision Date: 05/16/2019. gabapentin ([place] [...] are a day sleeper or work a assistant casino shift manager. Some people have thoughts about suicide while [...] may report side effects to FDA at 2-445-FPR-1659. What other drugs will affect gabapentin? Taking gabapentin with other drugs that make you sleepy can worsen this effect. Ask your doctor before taking a sleeping pill, narcotic medication, muscle relaxer, or medicine for anxiety, depression, or seizures. Other drugs may interact with gabapentin, including prescription and jzye-cgl-nxypzic medicines, vitamins, and herbal products. Tell your [...]
--- OUTSIDE RECORDS SUMMARY | 2025-03-08 08:39 | XMS_ITS | Encounter Summary ---
[facility] Address [address] [place] [address] Care Team Providers Care Welding Machine Feeder Name Role Phone Marc Rodriguez MD Primary Care Provider [phone] Encounter Details Date Type Department Care Team (Late st Contact Info) Description 06/18/2016 External CPT II PATIENT CARE ASSISTANT - [facility] Social History Tobacco Use [...] Description 03/13/2025 9:45 AM EDT Office Visit [facility] [address] [facility] [address], [place] [address] Jimmy Duncan MD [address] [facility] [address] [place] [address] 06/26/2025 9:30 AM EST Procedure visit [facility] PULMONARY & CRITICAL CARE MEDICINE [address] [place] [address] 06/26/2025 10:00 AM EST Office Visit [facility] PULMONARY & CRITICAL CARE MEDICINE [address] [phone] Kaitlin Joiner, WET AND DRY SUGAR BIN OPERATOR [address] [place] [address] documented as of this encounter Visit Diagnoses [...] documented as of this encounter Care Teams Welding Machine Feeder Relationship Specialty Start Date End Date Marc Rodriguez MD [address] [facility] [address] [place] [address] PCP - General Adolescent Medicine 12/08/16 documented as of this encounter
--- OUTSIDE RECORDS SUMMARY | 2025-03-08 08:39 | XMS_ITS | Encounter Summary ---
Author Organization [employer] ([place], [place], [place], [place]) Address [address] [place] [address] Care Team Providers Care Deaf/Hard Of Hearing Specialist Name Role Phone Unavailable Primary Care Provider Unavailabl e Encounter Details Date Type Department Care Team (Late st Contact Info) Description 08/02/2019 Transcribed Document [facility] Family Medicine [address] [place] [address] ProviderSonia MD [address] [place], [place] [address] Social History Tobacco Use Types Packs/Day Years Used Date Smoking Tobacco: Never Assessed Comments Unknown Sex and Gender Information Value Date Recorded Sex Assigned at Not on file Legal Sex Female 1:42 PM CDT Gender Identity Not on file Sexual Orientation Not on file documented as of this encounter Miscellaneous Notes * Cerner Conversion Note - Sonia ProviderMD - 08/02/2019 12:55 PM PELLETIZER TENDER Nursing Discharge Summary Entered On: 08/02/2019 12:56 EST Performed On: 08/02/2019 12:55 EST by Aimee Willis RN Discharge Documentation Patient Disposition, General : Discharge Discharge To : Other: [facility] Mode Of Departure, General Discharge : Private vehicle, Wheelchair Accompanied By, Discharge : Spouse IV Discontinued : Yes Personal Belongings With Patient : Yes Prescriptions Given to Patient : Yes Discharge Instructions Reviewed With, Opportunity For Questions Given : Patient, Spouse Patient Education Completed : Yes Teaching Method : Explanation Teaching Evaluation : Verbalizes understanding Aimee Willis RN - 08/02/2019 12:55 EST documented in this encounter Plan of Treatment Not on file documented as of this encounter Visit Diagnoses Not on filedocumented in this encounter
--- OUTSIDE RECORDS SUMMARY | 2025-03-08 08:39 | XMS_ITS | Encounter Summary ---
[facility] Address [address] [place] [address] Care Team Providers Care Earthmoving Labourer Name Role Phone Marc Rodriguez MD Primary Care Provider [phone] Encounter Details Date Type Department Care Team (Late st Contact Info) Description 12/03/2015 External CPT II SORORITY MOTHER - [facility] Social History Tobacco Use [...] 9:45 AM EDT Office Visit [facility] [address] [facility] [address] [address] Jimmy Duncan MD [address] [facility] [address] [place] [address] 06/26/2025 9:30 AM EST Procedure visit [facility] PULMONARY & CRITICAL CARE MEDICINE [address] [place] [address] 06/26/2025 10:00 AM EST Office Visit [facility] PULMONARY & CRITICAL CARE MEDICINE [address] [phone] Kaitlin Joiner, IT SECURITY CONSULTING DIRECTOR [address] [place] [address] documented as of this encounter Visit Diagnoses [...] documented as of this encounter Care Teams Earthmoving Labourer Relationship Specialty Start Date End Date Marc Rodriguez MD [address] [facility] [address] [place] [address] PCP - General Adolescent Medicine 12/08/16 documented as of this encounter
--- OUTSIDE RECORDS SUMMARY | 2025-03-08 08:39 | XMS_ITS | Encounter Summary ---
Author Organization [employer] ([place], [place], [place], [place]) Address [address] [place] [address] Care Team Providers Care Independent Freight Agent Name Role Phone Unavailable Primary Care Provider Unavailabl e Encounter Details Date Type Department Care Team (Late st Contact Info) Description 07/23/[address] [facility] [place] Family Medicine [address] [place] [address] ProviderSonia MD [facility] [place], [place] [address] Social History Tobacco Use Types Packs/Day Years Used Date Smoking Tobacco: Never Assessed Comments Unknown Sex and Gender Information Value Date Recorded Sex Assigned at Not on file Legal Sex Female 1:42 PM CDT Gender Identity Not on file Sexual Orientation Not on file documented as of this encounter Miscellaneous Notes * Cerner Conversion Note - Sonia ProviderMD - 07/23/2019 10:00 PM SCREEDMAN/LABORER Pain Assessment Entered On: 07/24/2019 2:20 EST Performed On: 07/23/2019 21:33 EST by Mayra Gibson RN Intervention Information: acetaminophen Performed by Mayra Gibson, RN on 07/23/2019 20:33:00 EST acetaminophen,1000mg Oral Pain Assessment Pain Assessment : Follow-up assessment Pain Scale Goal : 5 Pain Scale Used : 0-10 Scale Mayar Gibson RN - 07/24/2019 2:20 EST Pain [...]
--- OUTSIDE RECORDS SUMMARY | 2025-03-08 08:39 | XMS_ITS | Encounter Summary ---
Author Organization [employer] ([place], [place], [place], [place]) Address [address] [place] [address] Care Team Providers Care [place] District Aide Name Role Phone Unavailable Primary Care Provider Unavailabl e Encounter Details Date Type Department Care Team (Late st Contact Info) Description 07/22/2019 Transcribed Document [facility] [place] [address] [place] [address] ProviderSonia MD [address] [place], [place] [id number] Social History Tobacco Use Types Packs/Day Years Used Date Smoking Tobacco: Never Assessed Comments Unknown Sex and Gender Information Value Date Recorded Sex Assigned at Not on file Legal Sex Female 1:42 PM CDT Gender Identity Not on file Sexual Orientation Not on file documented as of this encounter Miscellaneous Notes * Cerner Conversion Note - Sonia ProviderMD - 07/22/2019 5:00 PM VEGETABLE LOADER Chart Check - Review Order Profile Entered On: 07/22/2019 19:02 EST Performed On: 07/22/2019 17:00 EST by Aimee Willis RN Chart Check Powerplans Initiated/Discontinued as Appropriate : Yes All Active Orders Reviewed : Yes Aimee Willis RN - 07/22/2019 19:02 EST Electronically signed by Raman [facility] Conversion Master [employer] Cerner at 11/19/2022 8:33 PM CDT documented in this encounter Plan of Treatment Not on file documented as of this encounter Visit Diagnoses Not on filedocumented in this encounter
--- OUTSIDE RECORDS SUMMARY | 2025-03-08 08:39 | XMS_ITS | Encounter Summary ---
Author Organization [employer] ([place], [place], [place], [place]) Address [address] [place] [address] Care Team Providers Care Book Retailer Name Role Phone Unavailable Primary Care Provider Unavailabl e Encounter Details Date Type Department Care Team (Late st Contact Info) Description 06/21/2020 Transcribed Document [facility] [place] [facility] [place] [address] ProviderSonia MD [address] [place] [address] Social History Tobacco Use Types Packs/Day [...] Sonia Boogie MD - 06/21/2020 9:01 AM OFFICE CORRESPONDENT [address] [address] SANDIE FRANK :1955 Visit Time:06/21/2020 [...] Follow-Up Appointments Follow Up with ANIVAL BROWN MD-NMNeal When Comments See procedure report for instructions. Where: [address] [facility] [address] [place] [address]- [phone] Medications What How Much When Instructions Next [...] 205.5 mcg/ inh (0.15%) nasal spray) 2 Charlotte(s) Nasal Two Times A Day as needed [...] Oral At Bedtime fluticasone nasal (Flonase) 1 Charlotte(s) Nostrils Both Two Times A Day formoterol [...] eating solid foods. General instructions ??? Take qjsd-nmg-sujbism and prescription medicines only as told by [...] 11/09/2016 Document Revised: 10/18/2018 Document Reviewed: 11/09/2016 [employer] Patient Education ?? 2020 [employer]. Hemorrhoids Hemorrhoids are swollen veins that may [...] times a day. General instructions ??? Take hqqq-jiu-tpyetge and prescription medicines only as told by [...] 04/28/2009 Document Revised: 07/28/2019 Document Reviewed: 12/09/2018 [employer] Patient Education ?? 2020 [employer]. Colonoscopy, Adult, Care After This sheet gives [...] soft and easy to digest. ??? Take jzgv-mtn-jmzeumo or prescription medicines only as told by [...] Reviewed: 04/13/2017 Elsevier Patient Education ?? 2020 [employer] Emergency Awareness and Preventative Care STROKE is an EMERGENCY Every Minute Counts Act FAST and Check for these signs: FACE Does the face look uneven? ARM Does one arm drift down? SPEECH Does their speech sound strange? TIME Call at any sign of stroke Stroke Risk [...] Assistance with quitting is available by contacting 6-000-MOBY-NOW. This is a free resource providing counseling, support, and referral. Or you may contact your personal physician. [place] Suicide Prevention Lifeline: The National Suicide Prevention [...] was given the opportunity to ask questions. Patient/Pipelines Manager Name: Patient/Pipelines Manager Signature: Relationship to Patient: Clinician/Hospital Pipelines Manager Signature: Date: documented in this encounter Plan of Treatment Not on file documented as of this encounter Visit Diagnoses Not on filedocumented in this encounter
--- OUTSIDE RECORDS SUMMARY | 2025-03-08 08:39 | XMS_ITS | Referral Summary ---
Author Organization [employer] ([place], [place], [place], [place]) Address [address] [place] [address] Care Team Providers Care Stained Glass Window Designer Name Role Phone Unavailable Primary Care [...]
--- OUTSIDE RECORDS SUMMARY | 2025-03-08 08:39 | XMS_ITS | Encounter Summary ---
Author Organization [employer] ([place], [place], [place], [place]) Address [address] [place] [address] Care Team Providers Care Silo Erector Name Role Phone Unavailable Primary Care Provider Unavailabl e Encounter Details Date Type Department Care Team (Late st Contact Info) Description 06/21/2020 Transcribed Document [facility] [place] Family Medicine [facility] [place] [address] ProviderSonia MD [address] [place] [id number] Social History Tobacco Use Types Packs/Day Years Used Date Smoking Tobacco: Never Assessed Comments Unknown Sex and Gender Information Value Date Recorded Sex Assigned at Not on file Legal Sex Female 1:42 PM CDT Gender Identity Not on file Sexual Orientation Not on file documented as of this encounter Miscellaneous Notes * Cerner Conversion Note - Sonia Boogie MD - 06/21/2020 8:45 AM RADIATION TECHNICIAN SWAP[employer] Shin IntraOp Summary Primary Physician: ANIVAL BROWN MD-GAE Finalized Date/Time: 06/21/20 08:52:23 Pt. Name: PHYLLIS FRANK Jovana /Sex: 1955 Female Med Rec #: [id number] Physician: ANIVAL BROWN MD-GAE Financial #: [id number] Pt. Type: E Room/Bed: [facility] [place] Admit/Disch: 06/21/20 06:39:00 - Institution: [facility] Endo - Case Attendance Entry 1 Entry 2 Entry 3 Case Attendee ANIVAL BROWN MD-GAE WHITAKER, CARLY, RIDINGS, JAROLINE, RN ORGAN INSTALLER-ANS Role Performed Surgeon/Proceduralist, ORGAN INSTALLER/Nurse Film Processing Utility Worker Shop Blacksmith, First First Time In 06/21/20 08:36:00 06/21/20 08:36:00 06/21/20 08:36:00 Time Out 06/21/20 08:53:00 06/21/20 08:53:00 06/21/20 08:53:00 Procedure Colonoscopy Colonoscopy Colonoscopy Other Attendee Superficial Wound Closed By: Last Modified By: ANGEL BARAHONA, ANGEL TAVERAS, ANGEL TAVERAS RN 06/21/20 08:51:24 06/21/20 08:51:24 06/21/20 08:51:24 Entry 4 Entry 5 Entry 6 Case Attendee ARTURO Pollard, RN ALEJANDRA RODRIGUEZ TECH LITTLE, MIGUEL OSORIO MD-ANS Role Performed Shop Blacksmith, Second Scrub, First Anesthesiologist of Record Time In 06/21/20 08:36:00 06/21/20 08:36:00 06/21/20 08:36:00 Time Out 06/21/20 08:53:00 06/21/20 08:53:00 06/21/20 08:53:00 Procedure Colonoscopy Colonoscopy Colonoscopy Other Attendee Superficial Wound Closed By: Last Modified By: ANGEL BARAHONA, ANGEL TAVERAS RN RIDINGS, JAROLINE, RN 06/21/20 08:51:24 06/21/20 08:51:24 06/21/20 08:51:24 [facility] Endo - Case Attendance Audit 06/21/20 08:51:24 Blood Bank Technologist: [id number] Modifier: [id number] 1 <+> Time Out 1 <*> Procedure Colonoscopy 2 <+> Time Out 2 <*> Procedure Colonoscopy 3 <+> Time Out 3 <*> Procedure Colonoscopy 4 <+> Time Out 4 <*> Procedure Colonoscopy 5 <+> Time Out 5 <*> Procedure Colonoscopy 6 <+> Time Out 6 <*> Procedure Colonoscopy 06/21/20 08:47:03 Blood Bank Technologist: [id number] Modifier: [id number] <+> 1 Procedure 2 <+> Time In [...] Endo - Case Times Audit 06/21/20 08:51:21 Blood Bank Technologist: [id number] Modifier: [id number] <+> 1 Out Room Time <+> 1 Stop Time <+> 1 Stop Time 06/21/20 08:46:22 Blood Bank Technologist: [id number] Modifier: [id number] <+> 1 Start Time [facility] End[facility] - [...] Modified By: ANGEL BARAHONA RN 06/21/20 08:42:44 [facility] End[facility] - Endoscopy Details Entry 1 Abdomen Procedure Soft, Non-Tender Assessment Procedure Abdomen 06/21/20 08:37:00 Assessment D/T Radio Frequency Ablation Abdominal Pressure Last Modified By: ANGEL BARAHONA RN 06/21/20 08:43:06 [facility] - Fire Risk Assessment Entry 1 [...] 06/21/20 08:44:22 [facility] Endo - General Case Terminal Worker 1 Case Information OR Endo 01 [facility] Case Level 1 Room Verified Yes Wound Class III - Contaminated Specialty SN Endovascular Anesthesia Type MAC ASA Class 3 Diagnosis Preop Diagnosis chage in bowel habit Postop Same As Preop No Postop Diagnosis normal post colectomy bowel Last Modified By: ANGEL BARAHONA RN 06/21/20 08:52:07 [facility] - General Case Data Audit 06/21/20 08:52:07 Blood Bank Technologist: [id number] Modifier: [id number] <+> 1 Postop Diagnosis 06/21/20 08:50:45 Blood Bank Technologist: [id number] Modifier: [id number] <+> 1 Specialty <+> 1 ASA Class <+> 1 Anesthesia Type <+> 1 Postop Same As Preop <+> 1 Preop Diagnosis <+> 1 Room Verified E Endo - Intraoperative Assessment Entry 1 Valid History / Yes Physical in Chart Preoperative Yes Checklist Reviewed/Evaluated Allergies Reviewed Yes Patient is Latex No Sensitive Isolation Not applicable Precautions Noted Skin Assessment Yes Verified Present Upon IVs, ECG monitored Arrival to OR Prosthetic/Assistive Pain Pump Devices Last Modified By: ANGEL BARAHONA RN 06/21/20 08:49:55 [facility] Endo - Intraoperative Assessment Audit 06/21/20 08:49:55 Blood Bank Technologist: [id number] Modifier: [id number] <+> 1 Prosthetic/Assistive Devices [facility] Endo - Intraoperative Equipment Entry 1 Type [...] Modified By: ANGEL BARAHONA RN 06/21/20 08:46:06 [facility] Endo - Patient Positioning Entry 1 Procedure Colonoscopy Body Position Lateral, right side up Left Arm Position Resting at side Right Arm Position Resting at side Left Leg Position Uncrossed, parallel Right Leg Position Uncrossed, parallel Feet Uncrossed Yes Pressure Points Yes Checked Positioned By ANGEL BARAHONA, NICOLASA, HERACLIO PERLA, SHADE-ANS, ALEJANDRA RODRIGUEZ, ERICKSON Position Verified Positioning Yes Verified by [...] Modified By: ANGEL BARAHONA RN 06/21/20 08:51:35 [facility] Endo - Surgical Procedures Entry 1 Procedure Colonoscopy Additional WITH BIOPSY Procedure Description Primary Procedure Yes Primary Surgeon ANIVAL BROWN MD-GAE Start 06/21/20 08:45:00 Stop 06/21/20 08:51:00 Anesthesia Type MAC Specialty SN Gastroenterology Wound Class III - Contaminated Last Modified By: ANGEL BARAHONA RN 06/21/20 08:52:14 General Comments: patient has no cecum E Endo - Surgical Procedures Audit 06/21/20 08:52:14 Blood Bank Technologist: [id number] Modifier: [id number] <+> 1 Stop 06/21/20 08:47:59 Blood Bank Technologist: [id number] Modifier: [id number] 1 <*> Procedure Colonoscopy 1 <*> Procedure [...] RN 06/21/20 08:52 Electronically signed by Raman [facility] Conversion Fringing Machine Operator Cerner at 11/19/2022 8:29 PM CDT documented in this encounter Plan of Treatment Not on file documented as of this encounter Visit Diagnoses Not on filedocumented in this encounter
--- OUTSIDE RECORDS SUMMARY | 2025-03-08 08:39 | XMS_ITS | Encounter Summary ---
Author Organization [employer] ([place], [place], [place], [place]) Address [address] [place] [address] Care Team Providers Care Forms Analyst Name Role Phone Unavailable Primary Care Provider Unavailabl e Encounter Details Date Type Department Care Team (Late st Contact Info) Description 08/02/2019 Transcribed Document [facility] [place] [facility] [place] [address] [place] [address] ProviderSonia MD [address] [place] [address] Social History Tobacco Use Types Packs/Day Years Used Date Smoking Tobacco: Never Assessed Comments Unknown Sex and Gender Information Value Date Recorded Sex Assigned at Not on file Legal Sex Female 1:42 PM CDT Gender Identity Not on file Sexual Orientation Not on file documented as of this encounter Miscellaneous Notes * Cerner Conversion Note - Sonia Boogie MD - 08/02/2019 12:56 PM COMMISSARY REPRESENTATIVE [place] [phone] SANDIE FRANK :1955 Visit Time:07/22/2019 Your Visit Summary Your Care Team Admitting Physician - IRINEO DECKER MD CHRISTENSEN, CHRISTIAN, MD-ORT Attending Physician - IRINEO DECKER MD CHRISTENSEN, CHRISTIAN, MD-JOELLEN Primary Care Physician - LEOPOLDO TEJADA (REF)MD-PIETER Referring Physician - PEE VILLAR MD-ORT Your Diagnosis Hip fracture Idiopathic aseptic necrosis of right tibia, Idiopathic aseptic necrosis of right tibia These Are Your Goals To go to [facility] tomorrow. Discharge Vitals Temperature 36.4 ??C Heart Rate (Monitored) 62 Respiratory Rate 16 Blood Pressure 149/68 What to do next Instructions From Your Care Team Discharge Activity: Discharge Activity: Activity as tolerated Diet: Discharge Diet: Heart healthy diet Follow-Up Appointments Follow Up with PEE VILLAR MD-ORT When 09/05/2019 11:15 AM EST Comments Appointment has been made Where: [address] [place] [address]- Medications What How Much When Instructions Next [...] 205.5 mcg/ inh (0.15%) nasal spray) 2 Rebecca(s) Nasal Two Times A Day as needed [...] A Day tonight fluticasone nasal (Flonase) 1 Rebecca(s) Nostrils Both Two Times A Day tonigt [...] Barley. Bulgur wheat. Millet. Bran muffins. Popcorn. [place] wafer crackers. Vegetables Sweet potatoes. Spinach. Kale. Artichokes. Cabbage. Broccoli. Green peas. Carrots. Squash. Fruits Berries. Pears. Apples. Oranges. Avocados. Prunes and raisins. Dried figs. Meats and Other Protein Sources [place], kidney, roland, and soy beans. Split peas. [...] lolis has 11 g of protein. ??? Bullock seeds ??? 1 oz has 5.5 g [...] floor. ??? Place frequently used items in lroe-ad-itmtv places ??? Keep electrical cables out of [...] ??? Using the bathroom. ??? Using household railroad auditor or toxic chemicals. ??? Touching or taking [...] stronger leg. tramadol (TRAM a dol) Manisha, Ultram, Ultram ER What is the most [...] extended-release form of this medicine is for eickoc-hgx-rtfoa treatment of pain. This form of tramadol [...] against the law. Stop taking all other uikmwi-vag-agayu narcotic pain medications when you start taking [...] may report side effects to FDA at 9-514-NWV-1009. What other drugs will affect tramadol? You [...] may affect tramadol. This includes prescription and weto-lfa-kwdtxmj medicines, vitamins, and herbal products. Not all [...] to ensure that the information provided by [employer]. ('[employer]') is accurate, up-to-date, and complete, but no guarantee is made to that effect. Drug information contained herein may be time sensitive. [employer] information has been compiled for use by healthcare practitioners and consumers in the [place] and therefore [employer] does not warrant that uses outside of the [place] are appropriate, unless specifically indicated otherwise. hereOs drug information does not endorse drugs, diagnose patients or recommend therapy. hereOs drug information is an informational resource designed [...] effective or appropriate for any given patient. [employer] does not assume any responsibility for any aspect of healthcare administered with the aid of information [employer] provides. The information contained herein is not intended to cover all possible uses, directions, precautions, warnings, drug interactions, allergic reactions, or adverse effects. If you have questions about the drugs you are taking, check with your doctor, nurse or pharmacist. Copyright 5920-0575 [employer]. Version: .. Revision Date: 05/16/2019. oxycodone (ox i KOE [...] The extended-release form of oxycodone is for ytslro-qaz-jakie treatment of pain and should not be [...] against the law. Stop taking all other tdbkez-edf-uwkzs narcotic pain medicines when you start taking [...] may report side effects to FDA at 1-770-TDS-9216. What other drugs will affect oxycodone? You [...] may affect oxycodone. This includes prescription and oqhm-wzg-urrrzpx medicines, vitamins, and herbal products. Not all [...] to ensure that the information provided by [employer]. ('[employer]') is accurate, up-to-date, and complete, but no guarantee is made to that effect. Drug information contained herein may be time sensitive. [employer] information has been compiled for use by healthcare practitioners and consumers in the [place] and therefore [employer] does not warrant that uses outside of the [place] are appropriate, unless specifically indicated otherwise. hereOs drug information does not endorse drugs, diagnose patients or recommend therapy. hereOs drug information is an informational resource designed [...] effective or appropriate for any given patient. [employer] does not assume any responsibility for any aspect of healthcare administered with the aid of information [employer] provides. The information contained herein is not intended to cover all possible uses, directions, precautions, warnings, drug interactions, allergic reactions, or adverse effects. If you have questions about the drugs you are taking, check with your doctor, nurse or pharmacist. Copyright 8415-2795 [employer]. Version: 13.03. Revision Date: 05/16/2019. hydromorphone (oral) (NAOMI droalejandrina saeed) Dilaudid, Exalgo What is the most [...] extended-release form of this medicine is for xucytp-vpt-wrdid treatment of moderate to severe pain, not [...] against the law. Stop taking all other ryvhds-kns-xtlsc narcotic pain medications when you start taking [...] may report side effects to FDA at 6-776-PMN-0057. What other drugs will affect hydromorphone? Opioid [...] drugs may affect hydromorphone, including prescription and gwsg-rpo-kbwbayd medicines, vitamins, and herbal products. Not all [...] to ensure that the information provided by [employer]. ('[employer]') is accurate, up-to-date, and complete, but no guarantee is made to that effect. Drug information contained herein may be time sensitive. [employer] information has been compiled for use by healthcare practitioners and consumers in the [place] and therefore [employer] does not warrant that uses outside of the [place] are appropriate, unless specifically indicated otherwise. hereOs drug information does not endorse drugs, diagnose patients or recommend therapy. hereOs drug information is an informational resource designed [...] effective or appropriate for any given patient. [employer] does not assume any responsibility for any aspect of healthcare administered with the aid of information [employer] provides. The information contained herein is not intended to cover all possible uses, directions, precautions, warnings, drug interactions, allergic reactions, or adverse effects. If you have questions about the drugs you are taking, check with your doctor, nurse or pharmacist. Copyright 6564-8369 [employer]. Version: 9.02. Revision Date: 06/30/2018. oxycodone (ox [...] The extended-release form of oxycodone is for tcidoj-ify-vtjid treatment of pain and should not be [...] against the law. Stop taking all other gngeoi-stt-miqhp narcotic pain medicines when you start taking [...] may report side effects to FDA at 3-956-EQD-9452. What other drugs will affect oxycodone? You [...] may affect oxycodone. This includes prescription and yuwl-feo-nyhqmpx medicines, vitamins, and herbal products. Not all [...] to ensure that the information provided by [employer]. ('[employer]') is accurate, up-to-date, and complete, but no guarantee is made to that effect. Drug information contained herein may be time sensitive. [employer] information has been compiled for use by healthcare practitioners and consumers in the [place] and therefore [employer] does not warrant that uses outside of the [place] are appropriate, unless specifically indicated otherwise. [employer]'s drug information does not endorse drugs, diagnose patients or recommend therapy. hereOs drug information is an informational resource designed [...] effective or appropriate for any given patient. [employer] does not assume any responsibility for any aspect of healthcare administered with the aid of information [employer] provides. The information contained herein is not intended to cover all possible uses, directions, precautions, warnings, drug interactions, allergic reactions, or adverse effects. If you have questions about the drugs you are taking, check with your doctor, nurse or pharmacist. Copyright 6495-7681 [employer]. Version: 13.03. Revision Date: 05/16/2019. gabapentin ([place] [...] are a day sleeper or work a express manager. Some people have thoughts about suicide [...] should know that you take seizure medication. Electronically signed by Ivelisse Camargo Conversion Mold Making Plastics Sheets Supervisor Cerner at 11/19/2022 8:42 PM CDT documented in this encounter Plan of Treatment Not on file documented as of this encounter Visit Diagnoses Not on filedocumented in this encounter
--- OUTSIDE RECORDS SUMMARY | 2025-03-08 08:39 | XMS_ITS | Encounter Summary ---
Author Organization [email or web address] ([place], [place], [place], [place]) Address [address] [place] [address] Care Team Providers Care Supervisor Hydrochloric Area Name Role Phone Unavailable Primary Care Provider Unavailabl e Encounter Details Date Type Department Care Team (Late st Contact Info) Description 07/23/2019 Transcribed Document [facility] [place] Family Medicine [address] [place] [address] ProviderSonia MD [address] [place], [place] [id number] Social History Tobacco Use Types Packs/Day Years Used Date Smoking Tobacco: Never Assessed Comments Unknown Sex and Gender Information Value Date Recorded Sex Assigned at Not on file Legal Sex Female 1:42 PM CDT Gender Identity Not on file Sexual Orientation Not on file documented as of this encounter Miscellaneous Notes * Cerner Conversion Note - Sonia ProviderMD - 07/23/2019 6:00 AM CHALK TESTER Pain Assessment Entered On: 07/23/2019 6:31 EST Performed On: 07/23/2019 6:35 EST by DANTE MASCORRO, Stock Driver-Nursing Intervention Information: acetaminophen Performed by DANTE MASCORRO, Stock Driver-Nursing on 07/23/2019 05:35:00 EST acetaminophen,1000mg Oral Pain Assessment Pain Assessment : Follow-up assessment Pain Scale Used : FACES Pain Intervention, Drug : Medicated Pain Improved by Intervention : Yes DANTE MASCORRO, Stock Driver-Nursing - 07/23/2019 6:30 EST Pain Scale Intensity : 2 DANTE MASCORRO, Stock Driver-Nursing - 07/23/2019 6:30 EST Image 4 - Images currently included in the form version of this document have not been included in the text rendition version of the form. Electronically signed by Interface, Ivelisse Conversion Legal Contracts Specialist Cerner at 11/19/2022 8:42 PM CDT documented in this encounter Plan of Treatment Not on file documented as of this encounter Visit Diagnoses Not on filedocumented in this encounter
--- OUTSIDE RECORDS SUMMARY | 2025-03-08 08:39 | XMS_ITS | Encounter Summary ---
[facility] Address [address] [place] [address] Care Team Providers Care Extraction Machine Operator Name Role Phone Marc Rodriguez MD Primary Care Provider [phone] Reason for Visit * Reason Onset Date Comments Med Refill 02/10/2025 Encounter Details Date Type Department Care Team (Late st Contact Info) Description 02/10/2025 Telephone [facility] CARDIOLOGY [address] [facility] [address] [place] [address] Jimmy Goss MD 3000 [facility] [address], [place] [address] Med Refill Social History Tobacco Use Types Packs/Day Years [...] encounter Miscellaneous Notes * Telephone Encounter - Joleen Vick MA - 02/10/2025 3:08 PM EDT Rx Refill Note Requested Prescriptions Signed Prescriptions Disp Refills rosuvastatin (CRESTOR) 20 MG tablet 90 tablet 0 Sig: Take 1 tablet by mouth Daily. Authorizing Provider: JIMMY GOSS Ordering User: JOLEEN VICK Last office visit with prescribing clinician: Visit date not found Last telemedicine visit with prescribing clinician: Visit date not found Next office visit with prescribing clinician: 03/13/2025 Pharmacy Info Last Fill Date: Rx Written Date: Prescribed Qty: Additional Details from Pharmacy: Patient passed protocols per marco. Joleen Vick MA 02/10/25, 15:08 EDT * Telephone Encounter - Julian Herrera RegSched Rep - 02/10/2025 9:52 AM EDT Incoming Refill Request Medication requested (name and dose): CRESTOR 20MG Pharmacy where request should be sent: [facility] Additional details provided by patient: N/A Best call back number: [phone] Does the patient have less than a 3 day supply: [] Yes [x] No Alis Moore 02/10/25, 09:52 EDT documented in this encounter Plan of Treatment Upcoming Encounters Date Type Department Care Team (Late st Contact Info) Description 03/13/2025 9:45 AM EDT Office Visit [facility] C[facility]IOLOG[facility] [address] [facility] [address] [place] [address] Jimmy Goss MD 3000 [facility] [address] [place] [address] 06/26/2025 9:30 AM EST Procedure visit [facility] PULMONARY & CRITICAL CARE MEDICINE [address] [place] [address] 06/26/2025 10:00 AM EST Office Visit [facility] PULMONARY & CRITICAL CARE MEDICINE [address] [place] [address] Kaitlin Joiner, INCLUSION SPECIALIST [address] [place] [address] documented as of this encounter Visit Diagnoses Not on filedocumented in this encounter Care Teams Extraction Machine Operator Relationship Specialty Start Date End Date Marc Rodriguez MD [address] [facility] [address] [place] [address] PCP - General Adolescent Medicine 12/08/16 documented as of this encounter
--- OUTSIDE RECORDS SUMMARY | 2025-03-08 08:39 | XMS_ITS | Encounter Summary ---
Author Organization [employer] ([place], [place], [place], [place]) Address [address] [place] [address] Care Team Providers Care Derrick Worker Well Service Name Role Phone Unavailable Primary Care Provider Unavailabl e Encounter Details Date Type Department Care Team (Late st Contact Info) Description 06/21/2020 Transcribed Document [facility] Family Medicine [facility] [place] [address] ProviderSonia MD [address] [place], [place] [address] Social History Tobacco Use Types Packs/Day Years Used Date Smoking Tobacco: Never Assessed Comments Unknown Sex and Gender Information Value Date Recorded Sex Assigned at Not on file Legal Sex Female 1:42 PM CDT Gender Identity Not on file Sexual Orientation Not on file documented as of this encounter Miscellaneous Notes * [employer] Conversion Note - Sonia ProviderMD - 06/21/2020 8:30 AM FUSING LINE INSPECTOR SWAPNIL Shin PreOp Summary Primary Physician: ANIVAL BROWN MD-GAE Finalized Date/Time: 06/21/20 08:19:35 Pt. Name: PREM SANDIEIsael CastellanoO.B./Sex: 1955 Female Med Rec #: [id number] Physician: ANIVAL BROWN MD-GAE Financial #: [id number] Pt. Type: E Room/Bed: EEN/1 Admit/Disch: 06/21/20 [...]
--- OUTSIDE RECORDS SUMMARY | 2025-03-08 08:40 | XMS_ITS | Encounter Summary ---
[facility] Address [address] [place] [address] Care Team Providers Care Supervisor Sewer Maintenance Name Role Phone Marc Rodriguez MD Primary Care Provider [phone] Encounter Details Date Type Department Care Team (Late st Contact Info) Description 08/20/2015 External CPT II RESEARCH ASSISTANT - [employer] [facility] Social History Tobacco [...] Description 03/13/2025 9:45 AM EDT Office Visit [facility] CARDIOLOGY [address] [facility] [address], [place] [address] Jimmy Duncan MD [address] [facility] [address] [place] [address] 06/26/2025 9:30 AM EST Procedure visit [facility] PULMONARY & CRITICAL CARE MEDICINE [address] [place] [address] 06/26/2025 10:00 AM EST Office Visit [facility] PULMONARY & CRITICAL CARE MEDICINE [address] [place] [address] Kaitlin Joiner, GEOTHERMAL POWERPLANT MECHANIC [address] [place] [address] documented as of this encounter Visit Diagnoses [...] as of this encounter Care Teams Supervisor Sewer Maintenance Relationship Specialty Start Date End Date Marc Rodriguez MD [address] [facility] [address] [place] [address] PCP - General Adolescent Medicine 12/08/16 documented as of this encounter
--- OUTSIDE RECORDS SUMMARY | 2025-03-08 08:40 | XMS_ITS | Encounter Summary ---
Author Organization [employer] ([place], [place], [place], [place]) Address [address] [place] [address] Care Team Providers Care Nutrition Professor Name Role Phone Unavailable Primary Care Provider Unavailabl e Encounter Details Date Type Department Care Team (Late st Contact Info) Description 07/29/2019 Transcribed Document [facility] [address] [place] [address] ProviderSonia MD [address] [place], [place] [address] Social History Tobacco Use Types Packs/Day Years Used Date Smoking Tobacco: Never Assessed Comments Unknown Sex and Gender Information Value Date Recorded Sex Assigned at Not on file Legal Sex Female 1:42 PM CDT Gender Identity Not on file Sexual Orientation Not on file documented as of this encounter Miscellaneous Notes * [employer]ner Conversion Note - Sonia ProviderMD - 07/29/2019 6:00 AM AEROSPACE MEDICINE PHYSICIAN Pain Assessment Entered On: 07/29/2019 8:36 EST [...]
--- OUTSIDE RECORDS SUMMARY | 2025-03-08 08:40 | XMS_ITS | Encounter Summary ---
Author Organization [facility] Address [address] [place] [address] Care Team Providers Care Sausage Machine Operator Name Role Phone Marc Rodriguez MD Primary Care Provider [phone] Edgardo Zuñiga MD Unavailable [phone] Giulia Briggs Unavailable [phone] Edgardo Zuñiga MD Unavailable [phone] Esther Mathew Unavailable [phone] Encounter Details Date Type Department Care Team (Late st Contact Info) Description 12/16/2023 Orders Only External Location [address] [place] [address] Provider, External Social History Tobacco Use Types [...] Description 03/08/2025 1:40 PM EDT Office Visit [facility] Orthopaedic Surgery & Sports Medicine [address] [place] [address] Edgardo Zuñiga MD [address] [place] [address] 03/09/2025 1:20 PM EDT Office Visit [facility] [address] [place] [address] Tony GalindoaDO [address] [place] [address] documented as of this encounter [...] documented as of this encounter Care Teams Sausage Machine Operator Relationship Specialty Start Date End Date Marc Rodriguez MD [address] [place] [address] PCP - General 12/14/20 Edgardo Zuñiga MD [address] [place] [address] Surgeon Neurosurgery 8/2/21 Giulia Briggs PA [address] [place] [address] Physician Animal Care Technician Neurosurgery 07/03/21 Edgardo Zuñiga MD [address] [place] [address] Surgeon Neurosurgery 09/16/21 Esther Mathew PA [address] [place] [address] Physician Animal Care Technician Neurology 11/19/22 documented as of this encounter
--- OUTSIDE RECORDS SUMMARY | 2025-03-08 08:40 | XMS_ITS | Encounter Summary ---
Author Organization [employer] ([place], [place], [place], [place]) Address [address] [place] [address] Care Team Providers Care Air Conditioning Specialist Name Role Phone Unavailable Primary Care Provider Unavailabl e Encounter Details Date Type Department Care Team (Late st Contact Info) Description 07/28/2019 Transcribed Document [facility] Family [place] [facility] [place] [address] ProviderSonia MD [facility] [place], [place] [address] Social History Tobacco Use Types Packs/Day Years Used Date Smoking Tobacco: Never Assessed Comments Unknown Sex and Gender Information Value Date Recorded Sex Assigned at Not on file Legal Sex Female 1:42 PM CDT Gender Identity Not on file Sexual Orientation Not on file documented as of this encounter Miscellaneous Notes * [employer]ner Conversion Note - Sonia ProviderMD - 07/28/2019 2:44 PM ASSISTANT FOOD SERVICE DIRECTOR On Going Discharge Planning Entered On: 07/28/2019 14:45 EST Performed On: 07/28/2019 14:44 EST by REMY LOPEZ, Care Management-Vapor Coater Care Management Progress Note Discharge Arrangements : Patient Post-Acute Information Patient Name: SANDIE FRANK Gender: Female : [birth year] Age: 63 Years No Post-Acute Placement(s) Listed No Post-Acute Service(s) Listed No [place] Referral(s) Listed Discharge Options Discussed with Patient : Short term rehabilitation REMY LOPEZ Care Management-Vapor Coater - 07/28/2019 14:44 EST Narrative Progress Note Narrative Progress Note : Per Romina Lundy, they are unable to accept due to cost of medications. awaiting contact from [facility] Historical Progress Note : Received call from Catalina that at [facility] states the pt is declined for acute rehab and they are apprehensive about her coming to SRU due to her physical level of care. JAS relayed this to the pt and spouse and they agree to have the pt referred to the following: [facility], [facility] and [facility]. CM will fu for possible offers. Med list sent to [facility] for review. NICHOLAS HOGUE, RN-Director Safety - 07/26/19 15:40:13 JAS sent text to Catalina with [facility] this am requesting update on bed availability. She has the pt being reviewed by their physician. CM set ambulance tentatively for tomorrow at 1400. Awaiting word from [facility]. NICHOLAS HOGUE, RN-Director Safety - 07/25/19 15:17:05 JAS sent text to Catalina with [facility] this am requesting update on bed availability. She has the pt being reviewed by their physician. CM set ambulance tentatively for tomorrow at 1400. Awaiting word from [facility]. CM updated pt and family. NICHOLAS HOGUE, RN-Director Safety - 07/25/19 15:24:48 07/24 met with mrs Frank and she is awake and les shaky today... States she wants to go to rehab for getting strength and balance .. Await [facility] ady ,, She 's had her 3 Midnight stay in hospital .... LAMBERT Steele RN-Director Safety - 07/24/19 15:20:00 REMY LOPEZ, Care Management-Vapor Coater - 07/28/2019 14:44 EST Electronically signed by [facility], [facility] Conversion Grease Maker Cerner at 11/19/2022 8:25 PM CDT documented in this encounter Plan of Treatment Not on file documented as of this encounter Visit Diagnoses Not on filedocumented in this encounter
--- OUTSIDE RECORDS SUMMARY | 2025-03-08 08:40 | XMS_ITS | Encounter Summary ---
Author Organization [employer] ([place], [place], [place]) Address [address] [place] [address] Care Team Providers Care Hone Operator Name Role Phone Unavailable Primary Care Provider Unavailabl e Encounter Details Date Type Department Care Team (Late st Contact Info) Description 07/30/2019 Transcribed Document [facility] Family Medicine [address] [place] [address] ProviderSonia MD [address] [place], [place] [address] Social History Tobacco Use Types Packs/Day Years Used Date Smoking Tobacco: Never Assessed Comments Unknown Sex and Gender Information Value Date Recorded Sex Assigned at Not on file Legal Sex Female 1:42 PM CDT Gender Identity Not on file Sexual Orientation Not on file documented as of this encounter Miscellaneous Notes * Cerner Conversion Note - Sonia ProviderMD - 07/30/2019 5:00 PM SOLUTION SPEC Chart Check - Review Order Profile Entered On: 07/30/2019 20:49 EST Performed On: 07/30/2019 17:00 EST by Jennifer Coleman, RN Chart Check Powerplans Initiated/Discontinued as Appropriate : Yes All Active Orders Reviewed : Yes Jennifer Coleman, RN - 07/30/2019 20:49 EST Electronically signed by Raman [facility] Conversion Propulsion Machinery Service Engineer Cerner at 11/19/2022 8:38 PM CDT documented in this encounter Plan of Treatment Not on file documented as of this encounter Visit Diagnoses Not on filedocumented in this encounter
--- OUTSIDE RECORDS SUMMARY | 2025-03-08 08:40 | XMS_ITS | Encounter Summary ---
Author Organization [employer] ([place], [place]) Address [address] [place] [address] Care Team Providers Care Cushion Stuffer Name Role Phone Unavailable Primary Care Provider Unavailabl e Encounter Details Date Type Department Care Team (Late st Contact Info) Description 07/28/2019 Transcribed Document [facility] Family Medicine [facility] [place] [address] ProviderSonia MD [address] [place] [address] Social History Tobacco Use Types Packs/Day Years Used Date Smoking Tobacco: Never Assessed Comments Unknown Sex and Gender Information Value Date Recorded Sex Assigned at Not on file Legal Sex Female 1:42 PM CDT Gender Identity Not on file Sexual Orientation Not on file documented as of this encounter Miscellaneous Notes * [employer]ner Conversion Note - Sonia ProviderMD - 07/28/2019 6:00 AM FORMS ANALYST Pain Assessment Entered On: 07/28/2019 13:40 EST [...]
--- OUTSIDE RECORDS SUMMARY | 2025-03-08 08:40 | XMS_ITS | Encounter Summary ---
[facility] Address [address] [place] [address] Care Team Providers Care Records Analyst Name Role Phone Marc Rodriguez MD Primary Care Provider [phone] Encounter Details Date Type Department Care Team (Late st Contact Info) Description 10/12/2014 External CPT II INTERNATIONAL MARKETING EXECUTIVE - [facility] Social History Tobacco Use [...] Description 03/13/2025 9:45 AM EDT Office Visit [facility] CARDIOLOGY [address] [facility] [address], [place] [address] Jimmy Duncan MD [address] [facility] [address] [place] [address] 06/26/2025 9:30 AM EST Procedure visit [facility] PULMONARY & CRITICAL CARE MEDICINE [address] [place] [address] 06/26/2025 10:00 AM EST Office Visit [facility] PULMONARY & CRITICAL CARE MEDICINE [address] [place] [address] Kaitlin Joiner, LACTATION SPECIALIST [address] [place] [address] documented as of this encounter Visit Diagnoses [...] documented as of this encounter Care Teams Records Analyst Relationship Specialty Start Date End Date Marc Rodriguez MD [address] [facility] [address] [place] [address] PCP - General Adolescent Medicine 12/08/16 documented as of this encounter
--- OUTSIDE RECORDS SUMMARY | 2025-03-08 08:40 | XMS_ITS | Encounter Summary ---
Author Organization [employer] ([place], [place], [place], [place]) Address [address] [place] [address] Care Team Providers Care Courtroom Deputy Name Role Phone Unavailable Primary Care Provider Unavailabl e Encounter Details Date Type Department Care Team (Late st Contact Info) Description 07/30/2019 Transcribed Document [facility] Radiology [address] [place] [address] Diaz Vega MD [address] [place] [address] [address] [place] [id number] Social History Tobacco Use Types Packs/Day Years [...] hx cataract surgery bilateral / SNOMED CT 8944293680 / Confirmed high blood pressure / SNOMED CT 6037353219 / Confirmed uses Renexa / SNOMED CT 0116895 / Confirmed hx. chest pain / SNOMED CT 2167082932 / Confirmed high cholesterol / SNOMED CT 61617167 / Confirmed hx colon resection secondary decreased function / SNOMED CT 9522940518 / Confirmed chronic diarrhea / SNOMED CT 660821569 / Confirmed GERD / SNOMED CT 602732392 / Confirmed kidney stone right kidney current and hx / SNOMED CT 793900182 / Confirmed hx. frequent UTIs / SNOMED CT 3228207532 / Confirmed restless leg syndrome / SNOMED CT 26772833 / Confirmed chronic back pain / SNOMED CT 469645770 / Confirmed fibromyalgia / SNOMED CT 85379149 / Confirmed rheumatoid arthritis / SNOMED CT 778912345 / Confirmed Hypothyroidism / SNOMED CT 97803513 / Confirmed depression / SNOMED CT 76398447 / Confirmed migraine headaches / SNOMED CT 105658629 / Confirmed peripheral neuropathy / SNOMED CT 45589272 / Confirmed chronic hydrocort use / SNOMED CT 5367409 / Confirmed Adrenal insufficiency / SNOMED CT 5446580221 / Confirmed Arthritis / SNOMED CT 2643432 / Confirmed Aortic valve stenosis / SNOMED CT 269562726 / Confirmed At risk for sleep apnea / IMO 64422331 / Confirmed Glaucoma / SNOMED CT 04249283 / Confirmed Cataracts, both eyes / SNOMED CT 825738659 / Confirmed Osteoporosis / SNOMED CT 615115193 / Confirmed Seasonal allergies / SNOMED CT 4119554946 / Confirmed Asthma / SNOMED CT 009410117 / Confirmed Vitamin D deficiency / SNOMED CT 98090703 / Confirmed Dementia / SNOMED CT 38399625 / Confirmed Chronic kidney disease / SNOMED CT 9770685880 / Confirmed B12 deficiency / SNOMED CT 477119685 / Confirmed Pneumonia / SNOMED CT 371679132 / Confirmed Resolved: Hypotension / SNOMED CT 78471151 Canceled: adrenal insufficiency / SNOMED CT 7208079211 Canceled: Hyperthyroidism / SNOMED CT 76712VCN-[id number], Active Problems (33) Adrenal insufficiency Aortic valve [...] mg, Rectal, 1-Time, PRN: Constipation Flonase: 1 [place], Nostrils Both, BID Florastor: 250 mg, Oral, [...] intl units oral capsule: 1 Cap, Oral, [id number], 0 Refill(s) Dilaudid: pain pump, 0 Refill(s) Flax Seed Oil: 1,200 mg, Oral, BID, 0 Refill(s) Flonase: 1 [place], Nostrils Both, BID Lunesta: 3 mg, Oral, [...] azelastine 205.5 mcg/inh (0.15%) nasal spray: 2 [place], Nasal, BID, PRN: for allergy symptoms, 0 [...] azelastine 205.5 mcg/inh (0.15%) nasal spray 2 [place], PRN, Nasal, BID biotin 5 mg, Oral, [...] 50,000 Int Units = 1 Cap, Oral, [id number] Dilaudid donepezil 23 mg, Oral, Daily famotidine 40 mg, Oral, BID Flax Seed Oil 1,200 mg, Oral, BID Flonase 1 [place], Nostrils Both, BID gabapentin 100 mg oral [...] Oral, QAM fluticasone 0.05% nasal spray 1 [place], Nostrils Both, BID gabapentin 100 mg cap [...] Patient medically ready to be discharged to assisted facility documented in this encounter Plan of Treatment Not on file documented as of this encounter Visit Diagnoses Not on filedocumented in this encounter
--- OUTSIDE RECORDS SUMMARY | 2025-03-08 08:40 | XMS_ITS | Encounter Summary ---
Author Organization [employer] ([place], [place], [place], [place]) Address [address] [place] [address] Care Team Providers Care Chief Legal Officer Name Role Phone Unavailable Primary Care Provider Unavailabl e Encounter Details Date Type Department Care Team (Late st Contact Info) Description 07/29/2019 Transcribed Document [facility] Family Medicine [address] [place] [address] ProviderSonia MD [address] [place], [place] [address] Social History Tobacco Use Types Packs/Day Years Used Date Smoking Tobacco: Never Assessed Comments Unknown Sex and Gender Information Value Date Recorded Sex Assigned at Not on file Legal Sex Female 1:42 PM CDT Gender Identity Not on file Sexual Orientation Not on file documented as of this encounter Miscellaneous Notes * [employer] Conversion Note - Sonia ProviderMD - 07/29/2019 5:00 AM PRODUCT MARKETING ANALYST Chart Check - Review Order Profile Entered On: 07/29/2019 5:10 EST Performed On: 07/29/2019 5:00 EST by Myrna Deleon, RN Chart Check Powerplans Initiated/Discontinued as Appropriate : Yes All Active Orders Reviewed : Yes Myrna Deleon RN - 07/29/2019 5:10 EST Electronically signed by Raman [facility] Conversion Kick Press Operator Fela at 11/19/2022 8:24 PM CDT documented in this encounter Plan of Treatment Not on file documented as of this encounter Visit Diagnoses Not on filedocumented in this encounter
--- OUTSIDE RECORDS SUMMARY | 2025-03-08 08:40 | XMS_ITS | Encounter Summary ---
Author Organization [employer] ([place], [place], [place], [place]) Address [address] [place] [address] Care Team Providers Care Missile Facilities Repairer Name Role Phone Unavailable Primary Care Provider Unavailabl e Encounter Details Date Type Department Care Team (Late st Contact Info) Description 07/29/2019 Transcribed Document [facility] [place] [facility] [place] [address] ProviderSonia MD [address] [place], [place] [address] Social History Tobacco Use Types Packs/Day Years Used Date Smoking Tobacco: Never Assessed Comments Unknown Sex and Gender Information Value Date Recorded Sex Assigned at Not on file Legal Sex Female 1:42 PM CDT Gender Identity Not on file Sexual Orientation Not on file documented as of this encounter Miscellaneous Notes * Cerner Conversion Note - Sonia ProviderMD - 07/29/2019 12:02 PM SPLITTING MACHINE FEEDER On Going Discharge Planning Entered On: 07/29/2019 12:08 EST Performed On: 07/29/2019 12:02 EST by REMY LOPEZ, Care Management-Soil Scientist Care Management Progress Note Discharge Arrangements : Patient Post-Acute Information Patient Name: SANDIE FRANK Gender: Female : 51 Age: 63 Years No Post-Acute Placement(s) Listed No Post-Acute Service(s) Listed No Curaspan Referral(s) Listed Discharge Options Discussed with Patient : Short term rehabilitation REMY LOPEZ, Care Management-Soil Scientist - 07/29/2019 12:02 EST Narrative Progress Note Narrative Progress Note : [facility] has not responded, message left, lengthy discussion with pt and spouse regarding branching out to broaden search. also to look at [facility] swing Bed, they are agreeable to only 4 or 5 star rated facilities as presented in [place] [place]. Spouse indicated we are trying to get [...] Historical Progress Note : Per Romina at [facility], they are unable to accept due to cost of medications. awaiting contact from [facility] REMY LOPEZ, Care Management-Soil Scientist - 07/28/19 14:45:58 Received call from Catalina that at [facility] states the pt is declined for acute rehab and they are apprehensive about her coming to SRU due to her physical level of care. CM relayed this to the pt and spouse and they agree to have the pt referred to the following: [facility], [facility] and [facility]. CM will fu for possible offers. Med list sent to [facility] for review. NICHOLAS HOGUE, RN-Veterinary Dentist - 07/26/19 15:40:13 JAS sent text to Catalina with [facility] this am requesting update on bed availability. She has the pt being reviewed by their physician. JAS set ambulance tentatively for tomorrow at 1400. Awaiting word from [facility]. NICHOLAS HOGUE, RN-Veterinary Dentist - 07/25/19 15:17:05 JAS sent text to [place] with [facility] this am requesting update on bed availability. She has the pt being reviewed by their physician. JAS set ambulance tentatively for tomorrow at 1400. Awaiting word from [facility]. JAS updated pt and family. NICHOLAS HOGUE, RN-Veterinary Dentist - 07/25/19 15:24:48 07/24 met with mrs Frank and she is awake and les shaky today... States she wants to go to rehab for getting strength and balance .. Await EVAJennifer ady ,, She 's had her 3 Midnight stay in hospital .... LAMBERT Steele, RN-Veterinary Dentist - 07/24/19 15:20:00 REMY LOPEZ, Care Management-Soil Scientist - 07/29/2019 12:02 EST Electronically signed by [facility], [facility] Conversion Warehouse Pricing And Inventory Clerk Cerner at 11/19/2022 8:39 PM CDT documented in this encounter Plan of Treatment Not on file documented as of this encounter Visit Diagnoses Not on filedocumented in this encounter
--- OUTSIDE RECORDS SUMMARY | 2025-03-08 08:40 | XMS_ITS | Encounter Summary ---
[facility] Organization [facility] Address [address] [place] [address] Care Team Providers Care Signalling And Communications Engineer Name Role Phone Marc Rodriguez MD Primary Care Provider [phone] Encounter Details Date Type Department Care Team (Late st Contact Info) Description 09/19/2015 External CPT II ADMINISTRATIVE OFFICE ASSISTANT - [facility] Social History Tobacco [...] Description 03/13/2025 9:45 AM EDT Office Visit [facility] CARDIOLOGY [address] [facility] [address], [place] [address] Jimmy Duncan MD [address] [facility] [address] [place] [address] 06/26/2025 9:30 AM EST Procedure visit [facility] PULMONARY & CRITICAL CARE MEDICINE [address] [place] [address] 06/26/2025 10:00 AM EST Office Visit [facility] PULMONARY & CRITICAL CARE MEDICINE [address] [place] [address] Kaitlin Joiner, CUSTOM PROTECTION OFFICER [address] [place] [address] documented as of this encounter Visit Diagnoses [...] documented as of this encounter Care Teams Signalling And Communications Engineer Relationship Specialty Start Date End Date Marc Rodriguez MD [address] [facility] [address] [place] [address] PCP - General Adolescent Medicine 12/08/16 documented as of this encounter
--- OUTSIDE RECORDS SUMMARY | 2025-03-08 08:40 | XMS_ITS | Encounter Summary ---
Author Organization [employer] ([place], [place], [place], [place]) Address [address] [place] [address] Care Team Providers Care Petroleum Terminal Plant Operator Name Role Phone Unavailable Primary Care Provider Unavailabl e Encounter Details Date Type Department Care Team (Late st Contact Info) Description 07/27/2019 Transcribed Document [facility] Family Medicine [address] [place] [address] ProviderSonia MD [facility] [place], [place] [address] Social History Tobacco Use Types Packs/Day Years Used Date Smoking Tobacco: Never Assessed Comments Unknown Sex and Gender Information Value Date Recorded Sex Assigned at Not on file Legal Sex Female 1:42 PM CDT Gender Identity Not on file Sexual Orientation Not on file documented as of this encounter Miscellaneous Notes * Cerner Conversion Note - Sonia ProviderMD - 07/27/2019 10:00 PM FLEXIBLE SHAFT WINDER Pain Assessment Entered On: 07/28/2019 2:26 EST [...]
--- OUTSIDE RECORDS SUMMARY | 2025-03-08 08:40 | XMS_ITS | Clinical Summary ---
Author Organization [facility] Address [address] [facility] [address] [place] [address] Phone Care Team Providers Care Bankruptcy Paralegal Name Role Phone Rodrigo Avelar MD. Unavailable [phone] Conditions or Problems No information available. Medications No information available. Medications Administered No information available. Allergies, Adverse Reactions, Alerts No information available. Results No information available. Plan of Care No information available. Procedures No information available. Vital Signs No information available. Immunizations No information available. Advance Directives No information available.
--- OUTSIDE RECORDS SUMMARY | 2025-03-08 08:40 | XMS_ITS | Encounter Summary ---
[facility] Address [address] [place] [address] Care Team Providers Care Sales Office Assistant Name Role Phone Marc Rodriguez MD Primary Care Provider [phone] Encounter Details Date Type Department Care Team (Late st Contact Info) Description 10/10/2014 External CPT II TRUCK WASHER - [facility] Social History Tobacco Use [...] Description 03/13/2025 9:45 AM EDT Office Visit [facility] CARDIOLOGY [address] [facility] [address], [place] [address] Jimmy Duncan MD [address] [facility] [address] [place] [address] 06/26/2025 9:30 AM EST Procedure visit [facility] PULMONARY & CRITICAL CARE MEDICINE [address] [place] [address] 06/26/2025 10:00 AM EST Office Visit [facility] PULMONARY & CRITICAL CARE MEDICINE [address] [place] [address] Kaitlin Joiner, SPARE HAND [address] [place] [address] documented as of this encounter Visit Diagnoses [...] documented as of this encounter Care Teams Sales Office Assistant Relationship Specialty Start Date End Date Marc Rodriguez MD [address] [facility] [address] [place] [address] PCP - General Adolescent Medicine 12/08/16 documented as of this encounter
--- OUTSIDE RECORDS SUMMARY | 2025-03-08 08:40 | XMS_ITS | Encounter Summary ---
Author Organization [employer] ([place], [place], [place], [place]) Address [address] [place] [address] Care Team Providers Care Meter Changes Records Clerk Name Role Phone Unavailable Primary Care Provider Unavailabl e Encounter Details Date Type Department Care Team (Late st Contact Info) Description 07/30/2019 Transcribed Document [facility] [place] [facility] [place] [address] ProviderSonia MD [address] [place] [address] Social History Tobacco Use Types Packs/Day Years Used Date Smoking Tobacco: Never Assessed Comments Unknown Sex and Gender Information Value Date Recorded Sex Assigned at Not on file Legal Sex Female 1:42 PM CDT Gender Identity Not on file Sexual Orientation Not on file documented as of this encounter Miscellaneous Notes * Cerner Conversion Note - Sonia Boogie MD - 07/30/2019 11:55 AM DESIGN PRINTING MACHINE SET UP OPERATOR On Going Discharge Planning Entered On: 07/30/2019 11:55 EST Performed On: 07/30/2019 11:55 EST by REMY LOPEZ Care Management-Snow Removal/Plowing Care Management Progress Note Discharge Arrangements : Patient Post-Acute Information Patient Name: SANDIE FRANK Gender: Female : 51 Age: 63 Years No Post-Acute Placement(s) Listed No Post-Acute Service(s) Listed No Curaspan Referral(s) Listed Discharge Options Discussed with Patient : Short term rehabilitation REMY LOPEZ Care Management-Snow Removal/Plowing - 07/30/2019 11:55 EST Narrative Progress Note Narrative Progress Note : UPDATED CLINICAL SENT VIA [facility], Historical Progress Note : [facility] has not responded, message left, lengthy discussion with pt and spouse regarding branching out to broaden search. also to look at [facility] swing Bed, they are agreeable to only [...] have that option. Referral process continued with [facility] Referrals, Case Management will continue to follow. REMY LOPEZ, Care Management-Snow Removal/Plowing - 07/29/19 12:08:26 Per Romina at [place], they are unable to accept due to cost of medications. awaiting contact from [facility] REMY LOPEZ Care Management-Snow Removal/Plowing - 07/28/19 14:45:58 Received call from Catalina that at [facility] states the pt is declined for acute rehab and they are apprehensive about her coming to SRU due to her physical level of care. CM relayed this to the pt and spouse and they agree to have the pt referred to the following: [facility], [facility] and [facility]. CM will fu for possible offers. Med list sent to [facility] for review. NICHOLAS HOGUE, RN-Senior Water Resources Engineer - 07/26/19 15:40:13 JAS sent text to Catalina with [facility] this am requesting update on bed availability. She has the pt being reviewed by their physician. CM set ambulance tentatively for tomorrow at 1400. Awaiting word from [facility]. NICHOLAS HOGUE, RN-Senior Water Resources Engineer - 07/25/19 15:17:05 JAS sent text to Catalina with [facility] this am requesting update on bed availability. She has the pt being reviewed by their physician. JAS set ambulance tentatively for tomorrow at 1400. Awaiting word from [facility]. JAS updated pt and family. NICHOLAS HOGUE, RN-Senior Water Resources Engineer - 07/25/19 15:24:48 07/24 met with mrs Frank and she is awake and les shaky today... States she wants to go to rehab for getting strength and balance .. Await JUAN garsia ,, She 's had her 3 Midnight stay in hospital .... LAMBERT Steele, RN-Senior Water Resources Engineer - 07/24/19 15:20:00 REMY LOPEZ, Care Management-Snow Removal/Plowing - 07/30/2019 11:55 EST Electronically signed by Raman [facility] Conversion Instrumentation Controls Engineer Cerner at 11/19/2022 8:36 PM CDT documented in this encounter Plan of Treatment Not on file documented as of this encounter Visit Diagnoses Not on filedocumented in this encounter
--- OUTSIDE RECORDS SUMMARY | 2025-03-08 08:40 | XMS_ITS | Encounter Summary ---
Author Organization [employer] ([place], [place], [place], [place]) Address [address] [place] [address] Care Team Providers Care Applied Statistician Name Role Phone Unavailable Primary Care Provider Unavailabl e Encounter Details Date Type Department Care Team (Late st Contact Info) Description 07/28/2019 Transcribed Document [facility] Family Medicine [address] [place] [address] ProviderSonia MD [address] [place], [place] [address] Social History Tobacco Use Types Packs/Day Years Used Date Smoking Tobacco: Never Assessed Comments Unknown Sex and Gender Information Value Date Recorded Sex Assigned at Not on file Legal Sex Female 1:42 PM CDT Gender Identity Not on file Sexual Orientation Not on file documented as of this encounter Miscellaneous Notes * Cerner Conversion Note - Historical ProviderMD - 07/28/2019 2:00 AM END LATHE OPERATOR Chief Reservoir Engineering Details Entered On: 07/28/2019 2:26 EST Performed On: 07/28/2019 2:00 EST by Myrna Deleon, NICOLASA Order Details Transport Mode Order Detail : Bed (including specialty) Isolation Precautions Order Detail : Standard Precautions Order Detail : 0 IV Order Detail : 0 Oxygen Order Detail : 0 Nurse Collect Order Detail : 0 Lift/Transfer : Maximal assist Central Line Order Detail : No Room Service : Appropriate Arterial Line : No Myrna Deleon, NICOLASA - 07/28/2019 2:26 EST Electronically signed by Raman [facility] Conversion Telemarketing Agent Cerner at 11/19/2022 8:36 PM CDT documented in this encounter Plan of Treatment Not on file documented as of this encounter Visit Diagnoses Not on filedocumented in this encounter
--- OUTSIDE RECORDS SUMMARY | 2025-03-08 08:40 | XMS_ITS | Encounter Summary ---
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 Physical therapy strongly agreed that he needs to go to inpatient rehabilitation either [facility] are at the [facility]. No fevers or chills. No nausea vomiting. [...] retirement facility. Patient's nurse and the patient's case [...] the bedside as well as the case management associate. They're looking at placement options. Apparently wanted [...] not enough for her to go to [facility] at this point. Encouraged her to continue [...] list: Medical Adrenal insufficiency / SNOMED CT 6397037022 / Confirmed Aortic valve stenosis / SNOMED CT 279830899 / Confirmed Arthritis / SNOMED CT 1477164 / Confirmed Asthma / SNOMED CT 616981898 / Confirmed At risk for sleep apnea / IMO 65317027 / Confirmed Cataracts, both eyes / SNOMED CT 466896383 / Confirmed chronic back pain / SNOMED CT 850987372 / Confirmed chronic diarrhea / SNOMED CT 302540106 / Confirmed Chronic kidney disease / SNOMED CT 7747415269 / Confirmed B12 deficiency / SNOMED CT 217632462 / Confirmed Dementia / SNOMED CT 22202272 / Confirmed depression / SNOMED CT 87423978 / Confirmed uses Renexa / SNOMED CT 0322170 / Confirmed chronic hydrocort use / SNOMED CT 3806865 / Confirmed peripheral neuropathy / SNOMED CT 80460005 / Confirmed GERD / SNOMED CT 414519303 / Confirmed fibromyalgia / SNOMED CT 01795578 / Confirmed Glaucoma / SNOMED CT 50724122 / Confirmed migraine headaches / SNOMED CT 993019839 / Confirmed hx cataract surgery bilateral / SNOMED CT 4286554634 / Confirmed hx. chest pain / SNOMED CT 8694711501 / Confirmed hx colon resection secondary decreased function / SNOMED CT 3023939425 / Confirmed hx. frequent UTIs / SNOMED CT 2927556028 / Confirmed high cholesterol / SNOMED CT 88201923 / Confirmed high blood pressure / SNOMED CT 9377372722 / Confirmed Hypothyroidism / SNOMED CT 53830618 / Confirmed kidney stone right kidney current and hx / SNOMED CT 692472174 / Confirmed Osteoporosis / SNOMED CT 556640923 / Confirmed Pneumonia / SNOMED CT 849578197 / Confirmed restless leg syndrome / SNOMED CT 08276499 / Confirmed rheumatoid arthritis / SNOMED CT 659793533 / Confirmed Seasonal allergies / SNOMED CT 7797842451 / Confirmed Vitamin D deficiency / SNOMED CT 92982956 / Confirmed Resolved: Hypotension / SNOMED CT 32877340 Canceled: adrenal insufficiency / SNOMED CT 7711093485 Canceled: Hyperthyroidism / SNOMED CT 93113UWV-[id number], Active Problems (33) Adrenal insufficiency Aortic valve [...] mg, Rectal, 1-Time, PRN: Constipation Flonase: 1 [place], Nostrils Both, BID Florastor: 250 mg, Oral, [...] intl units oral capsule: 1 Cap, Oral, [id number], 0 Refill(s) Dilaudid: pain pump, 0 Refill(s) Flax Seed Oil: 1,200 mg, Oral, BID, 0 Refill(s) Flonase: 1 [place], Nostrils Both, BID Lunesta: 3 mg, Oral, [...] azelastine 205.5 mcg/inh (0.15%) nasal spray: 2 [place], Nasal, BID, PRN: for allergy symptoms, 0 [...] azelastine 205.5 mcg/inh (0.15%) nasal spray 2 [place], PRN, Nasal, BID biotin 5 mg, Oral, [...] 50,000 Int Units = 1 Cap, Oral, [id number] Dilaudid donepezil 23 mg, Oral, Daily famotidine 40 mg, Oral, BID Flax Seed Oil 1,200 mg, Oral, BID Flonase 1 [place], Nostrils Both, BID gabapentin 100 mg oral [...] Oral, QAM fluticasone 0.05% nasal spray 1 [place], Nostrils Both, BID gabapentin 100 mg cap [...] 08:35) 82 (JUL 28 21:35) 82 (JUL 28:35) Mon HR 74 (JUL [...] 95 (JUL 29 08:50) L 93 (JUL 28 21:31) 100 (JUL 28 20:00) General: Alert [...] creatinine screw 0.9. PATIENT, her , case management associate. She was turned down by the [facility] because she's on some expensive medications including [...] make sure hemoglobin is stable. Discussed with case management associate and waiting on a rehabilitation bed preferably at [facility]. I did tell them on happy to [...] continues for her to qualify for the [facility] [place] some anxiety about the cost of Lunesta. [employer] dictation system used. Computer program makes numerous spelling grammar mistakes. If you have any questions or concerns do not hesitate call Dr. Travis Lux at cell phone number [phone]. documented in this encounter Plan of Treatment Not on file documented as of this encounter Visit Diagnoses Not on filedocumented in this encounter
--- OUTSIDE RECORDS SUMMARY | 2025-03-08 08:40 | XMS_ITS | Encounter Summary ---
[facility] Address [address] [place] [address] Care Team Providers Care Pupil Personnel Services Director Name Role Phone Marc Rodriguez MD Primary Care Provider [phone] Encounter Details Date Type Department Care Team (Late st Contact Info) Description 06/18/2015 External CPT II MECHANICAL LABORATORY TECHNICIAN - [facility] Social History [...] Description 03/13/2025 9:45 AM EDT Office Visit [facility] CARDIOLOGY [address] [facility] [address], [place] [address] Jimmy Duncan MD [address] [facility] [address] [place] [address] 06/26/2025 9:30 AM EST Procedure visit [facility] PULMONARY & CRITICAL CARE MEDICINE [address] [place] [address] 06/26/2025 10:00 AM EST Office Visit [facility] PULMONARY & CRITICAL CARE MEDICINE [address] [place] [address] Kaitlin Joiner, BED LABORER [address] [place] [address] documented as of this encounter Visit Diagnoses [...] documented as of this encounter Care Teams Pupil Personnel Services Director Relationship Specialty Start Date End Date Marc Rodriguez MD [address] [facility] [address] [place] [address] PCP - General Adolescent Medicine 12/08/16 documented as of this encounter
--- OUTSIDE RECORDS SUMMARY | 2025-03-08 08:40 | XMS_ITS | Clinical Summary ---
Author Organization [facility] Address [address] [place] [address] Care Team Providers Care Wagon Drill Operator Name Role Phone Marc Rodriguez MD Primary Care Provider [phone] Edgardo Zuñiga MD Unavailable [phone] Giulia Briggs Unavailable [phone] Edgardo Zuñiga MD Unavailable [phone] Esther Mathew Unavailable [phone] Allergies Active Allergy Reactions Criticality Noted Date [...] by mouth once daily 30 tablet 1 03/01/20 25 Active donepezil (Aricept) 23 MG tablet Take 1 tablet by mouth once daily 30 tablet 1 01/04/20 25 025 Discontinued Active Problems Problem Noted [...] (07/02/2021): Added automatically from request for surgery [id number] Chronic bilateral low back pain with bilateral s ciatica 04/22/2021 Overview (04/22/2021): Added automatically from request for surgery [id number] Environmental and seasonal allergies 11/12/2020 Restless legs [...] (04/22/2021): Added automatically from request for surgery [id number] Spinal stenosis, lumbar clraa on without neurogenic claudication 04/22/2021 10/18/2021 Overview (04/22/2021): Added automatically from request for surgery [id number] Spondylolisthesis at L4-L5 level 04/22/2021 10/18/2021 Overview (04/22/2021): Added automatically from request for surgery [id number] AVN (avascular necrosis of bone) 08/30/2018 07/30/2021 Rotator cuff arthropathy 08/30/2018 Decreased range of motion of shoulder 07/22/2018 07/30/2021 Humeral fracture 04/01/2018 07/30/2021 Biceps tendonitis 04/01/2018 07/30/2021 Rotator cuff dysfunction 04/01/2018 Purpura 06/19/2017 07/30/2021 Itching 06/02/2017 07/30/2021 Status migrainosus 08/08/2015 Encounters Date Type Department Care Team Description 03/07/20[facility] [address] [place] [id number] Edgardo Zuñiga MD S/P lumbar fusion (Primary Dx) 02/28/2025 Refill [facility] [address] [place] [address] Esther Mathew PA 01/02/2025 Refill [place] [facility] [address] [place] [address] Esther Mathew PA 12/07/2024 1:10 PM EDT Office Visit [facility] [address] [place] [address] Suzan Galindo DO Cervical cord compression with myelopathy (CMS/HCC); Total self-care deficit; Impaired cognition 12/07/2024 Travel 12/06/2024 Refill [place] [facility] Clinic [address] [place] [address] Esther Mathew, PA from Last 3 Months [...] Suma Cardiac disorder Mother Suma Depression Mother Suma Diabetes Mother Suma Fibromyalgia Mother Suma Other [...] the past 12 months has th e [employer], gas, oil, or water company threatened to [...] Description 03/08/2025 1:40 PM EDT Office Visit [facility] [address] [place] [address] Edgardo Zuñiga MD [address] [place] [address] 03/09/2025 1:20 PM EDT Office Visit [facility] [address] [place] [address] Suzan Galindo DO [address] [place] [address] Health Maintenance Due Date Last Done Comments [facility]-Bone Density Scan 1955 [facility]-Medicare Annual Wellness (AWV) 1955 [facility]-/Child/Adol SDOH Screenings 1953 CT Colonography 1998 Colonoscopy 1998 FIT-DNA 1998 FIT 1998 FOBT 1998 Sigmoidoscopy 1998 [facility]-Colorectal Cancer Screening 1998 [facility]-Breast Cancer Screening 11/01/2003 PNI-TMVNX-14 Vaccine (2023- season) 2024 07/15/2023, 04/30/2022, 12/19/2021, Additional history exists [facility]- SDOH Screenings 11/11/2024 [facility]-Adult SDOH Screenings 11/11/2024 05/13/2024 [facility]-Influenza Vaccine (#1) 04/03/202507/13, 05/01/2023, 06/07/2022, Additional history exists [facility]-Depression Screening 12/07/2025 025, 07/05/2024, 08/13/2021 [facility]-DTaP,Tdap,and Td Vaccines (3 - Td or Tdap) 12/09/2032 12/09/2022, 09/19/2015, 10/07/1996 [facility]-Hepatitis A Vaccines Aged Out 02/17/2019, 07/03 No longer eligible based on patient's age to complete this topic [facility]-Pneumococcal Vaccine: 50+ Years Completed 03/11/2022, 03/25/2019, 03/10/2016 [facility]-Zoster Vaccines Completed 05/29/2023, [facility]-RSV Vaccine: 60+ Years or Completed 08/13/2023 [facility]-Hepatitis C Screening Completed 04/25/2024 [facility]-Obesity Intervention Completed 025, 2024, 09/26/2024, Additional [...] this topic Medical Devices Implanted Type Area Director Organizational Device Identifier Shelf Expiration Date Model / Serial / Lot Cif Ui H 8mm 8deg S - [id number] Implanted:Qty : 1 on 07/31/2021 by Edgardo Zuñiga MD at [facility] Cage N/A: Spine Cervical BayRu [id number] 01/31/2024 [id number] / / [id number] Synchromed Iii Implanted:Qty : 1 on 10/09/2023 Pain Pump Abdomen Medtronic 8667-20 / [id number] / One Level Plate, 12mm - S. - [id number] Implanted:Qty : 1 on 07/31/2021 by Edgardo Zuñiga MD at [facility] Plate N/A: Spine Cervical DePuy Spine Sales -[id number] 07/31/2021 [id number] / . / Pre-Lordosed Joe W/ Line 40mm - [id number] Implanted:Qty : 2 on 10/16/2021 by Edgardo Zuñiga MD at [facility] Joe Spine Lumbar DePuy Spine Sales -[id number] 10/16/2022 [id number] / / Self Drilling Screw 16mm - S. - [id number] Implanted:Qty : 4 on 07/31/2021 by Edgardo Zuñiga MD at [facility] Screw N/A: Spine Cervical DePuy Spine Sales -[id number] 07/31/2022 [id number] / . / Screw 5.5mm Viper Ti Fen Crtcl Polyax 8mm X 50mm - [id number] Implanted:Qty : 4 on 10/16/2021 by Edgardo Zuñiga MD at [facility] Screw Spine Lumbar DePuy Spine Sales -[id number] 10/16/2022 [id number] / / Spinal Cord Stimulator Spinal Cord Stimulator Back OnBeep VA-1216 / [id number] / Description:LEADS (2): MODEL # 2218-50 Graft Vivigen 1cc - [id number] Implanted:Qty : 1 on 07/31/2021 by Edgardo Zuñiga MD at [facility]-[id number] 07/15/2022 BL-1500-001 / / [id number] Graft Vivigen 5cc - [id number] Implanted:Qty : 1 on 10/16/2021 by Edgardo Zuñiga MD at [facility] Spine Lumbar [facility]-[id number] 10/11/2022 BL-1500-002 / / [id number] Post Ibf Ui H 12mm 8deg 22/9 - [id number] Implanted:Qty : 1 on 10/16/2021 by Edgardo Zuñiga MD at [facility] Spine Lumbar DePuy Spine Sales LP-[id number] 02/01/2022 [id number] / / Post Ibf Ui H 12mm 8deg 24/04 - [id number] Implanted:Qty : 1 on 10/16/2021 by Edgardo Zuñiga MD at [facility] Spine Lumbar DePuy Spine Sales LP-[id number] 05/02/2025 [id number] / / Single Inner Setscrew - [id number] Implanted:Qty : 4 on 10/16/2021 by Edgardo Zuñiga MD at [facility] Spine Lumbar DePuy Spine Sales LP-[id number] 10/16/2022 [id number] / / Graft Vivigen 15cc - [id number] - [id number] Implanted:Qty : 1 on 03/18/2024 by Edgardo Zuñiga MD at [facility] N/A: Spine Lumbar [facility]-[id number] 02/02/2025 -[id number] / [id number] / [id number] Screw 5.5mm Viper Ti Fen Crtcl Polyax 7mm X 50mm - [id number] Implanted:Qty : 3 on 03/18/2024 by Edgardo Zuñiga MD at [facility] N/A: Spine Lumbar DePuy Spine Sales [id number] / / Single Inner Setscrew - [id number] Implanted:Qty : 6 on 03/18/2024 by Edgardo Zuñiga MD at [facility] N/A: Spine Lumbar DePuy Spine Sales LP-[id number] / / Pre-Lordosed Joe W/ Line 65mm - [id number] Implanted:Qty : 2 on 03/18/2024 by Edgardo Zuñiga MD at [facility] N/A: Spine Lumbar DePuy Spine Sales [id number] / / Procedures Procedure Name Priority Date/Time Associated Diagnosis Comments HEPATITIS C ANTIBODY - ED W/REFLEX TO HCV QUANT PCR STAT 04/25/2024 10:55 PM EDT from Last 3 Months or Most Recently Relevant to Health Maintenance Results * Hepatitis C Antibody - ED (04/25/2024 10:55 PM EDT) Hepatitis C Antibody Negative Negative 04/25/2024 11:46 PM EDT [facility] Blood Venous blood specimen / Unknown Venipuncture / Unknown 04/25/2024 10:55 PM EDT 04/25/2024 11:05 PM EDT us Yelena Mcqueen MD LAB BLOOD ORDERABLES Final Res ult [facility] [address] [place] [address] from Last 3 Months or Most Recently Relevant to Health Maintenance [place] [address] [facility] Advance Directives * Full Code (Latest Code [...] Patient has decision-making capacity? Yes Care Teams Wagon Drill Operator Relationship Specialty Start Date End Date Marc Rodriguez MD [address] [place] [address] PCP - General 12/14/20 Edgardo Zuñiga MD [address] [place] [address] Surgeon Neurosurgery 03/04/21 Giulia Briggs PA [address] [place] [address] Physician Front Office Representative Neurosurgery 07/03/21 Edgardo Zuñiga MD [address] [place] [address] Surgeon Neurosurgery 09/16/21 Esther Mathew PA [address] [place] [address] Physician Front Office Representative Neurology 11/19/22
--- OUTSIDE RECORDS SUMMARY | 2025-03-08 08:40 | XMS_ITS | Encounter Summary ---
Author Organization [employer] ([place], [place], [place], [place]) Address [address] [place] [address] Care Team Providers Care Senior Bookkeeper Name Role Phone Unavailable Primary Care Provider Unavailabl e Encounter Details Date Type Department Care Team (Late st Contact Info) Description 07/27/2019 Transcribed Document [facility] Family Medicine [address] [place] [address] ProviderSonia MD [address] [place], [place] [address] Social History Tobacco Use Types Packs/Day Years Used Date Smoking Tobacco: Never Assessed Comments Unknown Sex and Gender Information Value Date Recorded Sex Assigned at Not on file Legal Sex Female 1:42 PM CDT Gender Identity Not on file Sexual Orientation Not on file documented as of this encounter Miscellaneous Notes * Cerner Conversion Note - Sonia ProviderMD - 07/27/2019 5:00 AM LOGISTICS SERVICE REPRESENTATIVE Chart Check - Review Order Profile Entered On: 07/27/2019 6:57 EST Performed On: 07/27/2019 5:00 EST by Barrington Roberts RN Chart Check Powerplans Initiated/Discontinued as Appropriate : Yes All Active Orders Reviewed : Yes Barrington Roberts RN - 07/27/2019 6:57 EST Electronically signed by Raman [facility] Conversion Shower Doors And Panels Fabricator Cerner at 11/19/2022 8:45 PM CDT documented in this encounter Plan of Treatment Not on file documented as of this encounter Visit Diagnoses Not on filedocumented in this encounter
--- OUTSIDE RECORDS SUMMARY | 2025-03-08 08:40 | XMS_ITS | Encounter Summary ---
Author Organization [employer] ([place], [place], [place], [place]) Address [address] [place] [address] Care Team Providers Care Job Counselor Name Role Phone Unavailable Primary Care Provider Unavailabl e Encounter Details Date Type Department Care Team (Late st Contact Info) Description 07/28/2019 Transcribed Document [facility] Radiology [address] [place] [address] Travis Robles MD [address] [place], [place] [id number] Social History Tobacco Use Types Packs/Day Years [...] with physical therapy with the , nurse, returned case inspector all the bedside. She look like she is about to fallout ofthe bed. The patient's was asking about taking her home. He wanted to know if Dr. Patrick Knutson M.D. with orthopedic surgery actually goes to see patients at the [facility] That he does not go to the [facility] although 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 Physical therapy strongly agreed that he needs to go to inpatient rehabilitation either [facility] are at the [facility]. No fevers or chills. No nausea vomiting. [...] She is still agreeable to going to custodial facility. Patient's nurse and the patient's returned case inspector who saw her upstairs saw her again [...] at the bedside as well as the returned case inspector. They're looking at placement options. Apparently wanted facilities turn her down because of Lunesta apparently it's expensive medication and then there is a inhaler that she was getting that was expensive. I told her that we could probably find more affordable alternatives at least while she is in the custodial facility if necessary. Saturday, July 27, 2019. [...] list: Medical Adrenal insufficiency / SNOMED CT 9515159503 / Confirmed Aortic valve stenosis / SNOMED CT 976184131 / Confirmed Arthritis / SNOMED CT 3213746 / Confirmed Asthma / SNOMED CT 712399233 / Confirmed At risk for sleep apnea / IMO 89970474 / Confirmed Cataracts, both eyes / SNOMED CT 085242448 / Confirmed chronic back pain / SNOMED CT 711872653 / Confirmed chronic diarrhea / SNOMED CT 973625969 / Confirmed Chronic kidney disease / SNOMED CT 6186730410 / Confirmed B12 deficiency / SNOMED CT 018969539 / Confirmed Dementia / SNOMED CT 78350199 / Confirmed depression / SNOMED CT 30182137 / Confirmed uses Renexa / SNOMED CT 8038836 / Confirmed chronic hydrocort use / SNOMED CT 8958794 / Confirmed peripheral neuropathy / SNOMED CT 25381474 / Confirmed GERD / SNOMED CT 869344472 / Confirmed fibromyalgia / SNOMED CT 19762782 / Confirmed Glaucoma / SNOMED CT 20431890 / Confirmed migraine headaches / SNOMED CT 339233592 / Confirmed hx cataract surgery bilateral / SNOMED CT 8305776485 / Confirmed hx. chest pain / SNOMED CT 8886199907 / Confirmed hx colon resection secondary decreased function / SNOMED CT 9402507915 / Confirmed hx. frequent UTIs / SNOMED CT 1849941786 / Confirmed high cholesterol / SNOMED CT 00837717 / Confirmed high blood pressure / SNOMED CT 8136355619 / Confirmed Hypothyroidism / SNOMED CT 73129812 / Confirmed kidney stone right kidney current and hx / SNOMED CT 892636691 / Confirmed Osteoporosis / SNOMED CT 888273512 / Confirmed Pneumonia / SNOMED CT 271947404 / Confirmed restless leg syndrome / SNOMED CT 47714118 / Confirmed rheumatoid arthritis / SNOMED CT 188407926 / Confirmed Seasonal allergies / SNOMED CT 7665918214 / Confirmed Vitamin D deficiency / SNOMED CT 97905879 / Confirmed Resolved: Hypotension / SNOMED CT 14067310 Canceled: adrenal insufficiency / SNOMED CT 7398140130 Canceled: Hyperthyroidism / SNOMED CT 76267SAX-MZO6-584F-227S-88601PQR7624, Active Problems (33) Adrenal insufficiency Aortic valve [...] mg, Rectal, 1-Time, PRN: Constipation Flonase: 1 [place], Nostrils Both, BID Florastor: 250 mg, Oral, [...] intl units oral capsule: 1 Cap, Oral, O2Oyjad, 0 Refill(s) Dilaudid: pain pump, 0 Refill(s) Flax Seed Oil: 1,200 mg, Oral, BID, 0 Refill(s) Flonase: 1 [place], Nostrils Both, BID Lunesta: 3 mg, Oral, [...] azelastine 205.5 mcg/inh (0.15%) nasal spray: 2 [place], Nasal, BID, PRN: for allergy symptoms, 0 [...] azelastine 205.5 mcg/inh (0.15%) nasal spray 2 [place], PRN, Nasal, BID biotin 5 mg, Oral, [...] 50,000 Int Units = 1 Cap, Oral, F7Qtujc Dilaudid donepezil 23 mg, Oral, Daily famotidine 40 mg, Oral, BID Flax Seed Oil 1,200 mg, Oral, BID Flonase 1 [place], Nostrils Both, BID gabapentin 100 mg oral [...] Oral, QAM fluticasone 0.05% nasal spray 1 [place], Nostrils Both, BID gabapentin 100 mg cap [...] 05:56) 16 (JUL 27 14:13) 18 (JUL 27:) SBP 140 (JUL 28 05:56) 134 (JUL 27 14:13) H 149 (JUL 27 18:22) DBP H 99 (JUL 28 05:56) L 57 (JUL 27 14:13) H 99 (JUL 28 05:56) MAP 108 (JUL 28 05:56) 75 (JUL 27 14:13) 108 (JUL 28 05:56) SpO2 96 (JUL 28 05:56) 94 (JUL 27 14:13) 98 (JUL 27:26) Physical Examination VS/Measurements Vitals Signs (last 24 [...] is obese and debilitated, her , nurse, returned case inspector THE bedside. The really voiced some interest [...] the afternoon. The patient's nurse and her returned case inspector who saw her yesterday at the bedside and we'll concur that she would benefit from short-term custodial facility placement given her right hip replacement. [...] 8.5, creatinine screw 0.9. PATIENT, her , returned case inspector. She was turned down by the [facility] because she's on some expensive medications including [...] make sure hemoglobin is stable. Discussed with returned case inspector and waiting on a rehabilitation bed preferably at [facility] [place]. I did tell them on happy to change some medications around if they need any medications or affordable further pharmacy but ultimately she needs to be some place where she can get really intense rehabilitation so that she can go home and says lungs possible without any complications. Flare3dation system used. Computer program makes numerous spelling grammar mistakes. If you have any questions or concerns do not hesitate call Dr. Travis Lux at cell phone number [phone]. documented in this encounter Plan of Treatment Not on file documented as of this encounter Visit Diagnoses Not on filedocumented in this encounter
--- OUTSIDE RECORDS SUMMARY | 2025-03-08 08:40 | XMS_ITS | Encounter Summary ---
Author Organization [employer] ([place], [place], [place]) Address [address] [place] [address] Care Team Providers Care Projection Engineer Name Role Phone Unavailable Primary Care Provider Unavailabl e Encounter Details Date Type Department Care Team (Late st Contact Info) Description 07/22/2019 Transcribed Document [facility] Family Medicine [facility] [place] [address] ProviderSonia MD [address] [place] [id number] Social History Tobacco Use Types Packs/Day Years Used Date Smoking Tobacco: Never Assessed Comments Unknown Sex and Gender Information Value Date Recorded Sex Assigned at Not on file Legal Sex Female 1:42 PM CDT Gender Identity Not on file Sexual Orientation Not on file documented as of this encounter Miscellaneous Notes * Cerner Conversion Note - Sonia Boogie MD - 07/22/2019 11:20 AM FINANCE LECTURER Evaluation, Occupational Therapy Entered On: 07/22/2019 13:17 EST Performed On: 07/22/2019 12:49 EST by CAM KELLY OTR/Cat General Information, OT Visit Type, OT : Initial evaluation Patient Orders : Order Date Order Ordering 07/22/2019 11:21 OT Evaluation and Treatment Ordered By: PEE NEWTON MD-ORT 07/22/2019 11:21 OT Treatment Instructions Ordered By: PEE NEWTON MD-ORT Active Diagnoses : No Qualifying Diagnoses [...] Left UE Strength : WFL CAM KELLY OTR/Cat - 07/22/2019 12:49 EST Self Care/Home Management, [...] - 07/22/2019 12:49 EST] ) CAM KELLY OTR/Cat - 07/22/2019 12:49 EST Functional MobilityComment : [...] CAM KELLY OTR/Cat - 07/22/2019 12:49 EST Residential Goals, OT Other LTG Grid Goal #1 [...] 07/22/2019 12:49 EST Electronically signed by Raman, [facility] Conversion Mercury Cracking Tester Cerner at 11/19/2022 8:47 PM CDT documented in this encounter Plan of Treatment Not on file documented as of this encounter Visit Diagnoses Not on filedocumented in this encounter
--- OUTSIDE RECORDS SUMMARY | 2025-03-08 08:40 | XMS_ITS | Encounter Summary ---
Author Organization [email or web address] ([place], [place], [place]) Address [address] [place] [address] Care Team Providers Care Acoustical Installer Name Role Phone Unavailable Primary Care Provider Unavailabl e Encounter Details Date Type Department Care Team (Late st Contact Info) Description 08/02/2019 Transcribed Document [facility] Family Medicine [address] [place] [address] ProviderSonia MD [address] [place], [place] [address] Social History Tobacco Use Types Packs/Day Years Used Date Smoking Tobacco: Never Assessed Comments Unknown Sex and Gender Information Value Date Recorded Sex Assigned at Not on file Legal Sex Female 1:42 PM CDT Gender Identity Not on file Sexual Orientation Not on file documented as of this encounter Miscellaneous Notes * Cerner Conversion Note - Sonia ProviderMD - 08/02/2019 5:00 AM ENGINEER BYPRODUCT Chart Check - Review Order Profile Entered On: 08/02/2019 4:11 EST Performed On: 08/02/2019 5:00 EST by Priti Davenport RN Chart Check Powerplans Initiated/Discontinued as Appropriate : Yes All Active Orders Reviewed : Yes Priti Davenport RN - 08/02/2019 4:11 EST Electronically signed by Ivelisse Camargo Conversion Service And Repair Supervisor Cerner at 11/19/2022 8:45 PM CDT documented in this encounter Plan of Treatment Not on file documented as of this encounter Visit Diagnoses Not on filedocumented in this encounter
--- OUTSIDE RECORDS SUMMARY | 2025-03-08 08:40 | XMS_ITS | Encounter Summary ---
Author Organization [employer] ([place], [place], [place]) Address [address] [place] [address] Care Team Providers Care Pharmaceutical Specialty Representative Name Role Phone Unavailable Primary Care Provider Unavailabl e Encounter Details Date Type Department Care Team (Late st Contact Info) Description 07/30/2019 Transcribed Document [facility] Family Medicine [address] [place] [address] ProviderSonia MD [address] [place], [place] [address] Social History Tobacco Use Types Packs/Day Years Used Date Smoking Tobacco: Never Assessed Comments Unknown Sex and Gender Information Value Date Recorded Sex Assigned at Not on file Legal Sex Female 1:42 PM CDT Gender Identity Not on file Sexual Orientation Not on file documented as of this encounter Miscellaneous Notes * Cerner Conversion Note - Sonia ProviderMD - 07/30/2019 6:00 AM ROTARY BAR OPERATOR Pain Assessment Entered On: 07/30/2019 20:46 EST [...]
--- OUTSIDE RECORDS SUMMARY | 2025-03-08 08:40 | XMS_ITS | Encounter Summary ---
Author Organization [employer] ([place], [place], [place], [place]) Address [address] [place] [address] Care Team Providers Care Hand Expansion Envelope Maker Name Role Phone Unavailable Primary Care Provider Unavailabl e Encounter Details Date Type Department Care Team (Late st Contact Info) Description 07/29/2019 Transcribed Document [facility] [place] [address] [place] [address] [facility]Sonia [facility] [place] [address] Social History Tobacco Use Types Packs/Day Years Used Date Smoking Tobacco: Never Assessed Comments Unknown Sex and Gender Information Value Date Recorded Sex Assigned at Not on file Legal Sex Female 1:42 PM CDT Gender Identity Not on file Sexual Orientation Not on file documented as of this encounter Miscellaneous Notes * Cerner Conversion Note - Sonia ProviderMD - 07/29/2019 10:00 PM OIL SPRAYING MACHINE OPERATOR Pain Assessment Entered On: 07/30/2019 2:07 EST Performed On: 07/29/2019 22:57 EST by Myrna Deleon RN Intervention Information: acetaminophen Performed by Myrna Deleon RN on 07/29/2019 21:57:00 EST acetaminophen,1000mg Oral Pain Assessment Pain Assessment : Follow-up assessment Pain Scale Goal : 5 Pain Scale Used : 0-10 Scale Myrna Deleon RN - 07/30/2019 2:07 EST Pain Scale Intensity : 4 Myran Deleon RN - 07/30/2019 2:07 EST Image 4 - Images currently included in the form version of this document have not been included in the text rendition version of the form. documented in this encounter Plan of Treatment Not on file documented as of this encounter Visit Diagnoses Not on filedocumented in this encounter
--- OUTSIDE RECORDS SUMMARY | 2025-03-08 08:40 | XMS_ITS | Encounter Summary ---
Author Organization [facility] Address [address] [place] [address] Care Team Providers Care Lime Sludge Mixer Name Role Phone Marc Rodriguez MD Primary Care Provider [phone] Encounter Details Date Type Department Care Team (Late st Contact Info) Description 01/11/2015 External CPT II STAFF ANTISUBMARINE OFFICER - [facility] Social History Tobacco Use [...] 03/13/2025 9:45 AM EDT Office Visit [facility] CARDIOLOGY [address] [facility] [address], [place] [address] Jimmy Duncan MD [address] [facility] [address] [place] [address] 06/26/2025 9:30 AM EST Procedure visit [facility] PULMONARY & CRITICAL CARE MEDICINE [address] [place] [address] 06/26/2025 10:00 AM EST Office Visit [facility]ULMONARY [facility]IT[facility] MEDICINE [address] [place] [address] Kaitlin Joiner, PLUMBING MECHANIC [address] [place] [address] documented as of this encounter Visit Diagnoses [...] documented as of this encounter Care Teams Lime Sludge Mixer Relationship Specialty Start Date End Date Marc Rodriguez MD [address] [facility] [address] [place] [address] PCP - General Adolescent Medicine 12/08/16 documented as of this encounter
--- OUTSIDE RECORDS SUMMARY | 2025-03-08 08:40 | XMS_ITS | Encounter Summary ---
[facility] Organization [facility] Address [address] [place] [address] Care Team Providers Care Stewarding Supervisor Name Role Phone Marc Rodriguez MD Primary Care Provider [phone] Encounter Details Date Type Department Care Team (Late st Contact Info) Description 10/16/2015 External CPT II MARKETING DATABASE ANALYST - [facility] Social History Tobacco Use [...] 03/13/2025 9:45 AM EDT Office Visit [facility] C[facility]IOLOG[facility] [address] [facility] [address], [place] [address] Jimmy Duncan MD [address] [facility] [address] [place] [address] 06/26/2025 9:30 AM EST Procedure visit [facility] PULMONARY & [facility]ITICAL CARE MEDICINE [address] [place] [address] 06/26/2025 10:00 AM EST Office Visit [facility] PULMONARY & CRITICAL CARE MEDICINE [address] [place] [address] Kaitlin Joiner, PLANNING OFFICIAL [address] [place] [address] documented as of this encounter Visit Diagnoses [...] documented as of this encounter Care Teams Stewarding Supervisor Relationship Specialty Start Date End Date Marc Rodriguez MD [address] [facility] [address] [place] [address] PCP - General Adolescent Medicine 12/08/16 documented as of this encounter
--- OUTSIDE RECORDS SUMMARY | 2025-03-08 08:40 | XMS_ITS | Encounter Summary ---
Author Organization [employer] ([place], [place], [place], [place]) Address [address] [place] [address] Care Team Providers Care Language Interpreter Name Role Phone Unavailable Primary Care Provider Unavailabl e Encounter Details Date Type Department Care Team (Late st Contact Info) Description 07/31/2019 Transcribed Document [facility] [place] Family Medicine [address] [place] [address] ProviderSonia MD [address], [place] [id number] Social History Tobacco Use Types Packs/Day Years Used Date Smoking Tobacco: Never Assessed Comments Unknown Sex and Gender Information Value Date Recorded Sex Assigned at Not on file Legal Sex Female 1:42 PM CDT Gender Identity Not on file Sexual Orientation Not on file documented as of this encounter Miscellaneous Notes * [employer]ner Conversion Note - Sonia ProviderMD - 07/31/2019 5:00 PM FIRE PROTECTION FABRICATOR Chart Check - Review Order Profile Entered On: 07/31/2019 16:18 EST Performed On: 07/31/2019 17:00 EST by Trina Adorno RN Chart Check Powerplans Initiated/Discontinued as Appropriate : Yes All Active Orders Reviewed : Yes Trina Adorno RN - 07/31/2019 16:18 EST Electronically signed by Ivelisse Camargo Conversion Automatic Profile Shaper Operator Cerner at 11/19/2022 8:24 PM CDT documented in this encounter Plan of Treatment Not on file documented as of this encounter Visit Diagnoses Not on filedocumented in this encounter
--- OUTSIDE RECORDS SUMMARY | 2025-03-08 08:40 | XMS_ITS | Clinical Summary ---
Author Organization [facility] Address [address] [facility] [address] [place] [address] Care Team Providers Care Stroboroma Operator Name Role Phone Unavailable Primary Care Provider Unavailabl e Social History Tobacco Use Types Packs/Day Years Used Date Smoking Tobacco: Never Assessed Comments Unknown Sex and Gender Information Value Date Recorded Sex Assigned at Not on file Legal Sex Female 11:14 AM EDT Gender Identity Not on file Sexual Orientation Not on file Plan of Treatment Health Maintenance Due Date Last Done Comments Bone Density Scan 1953 CT Colonography 1955 Colonoscopy 1953 Colorectal Cancer Screening 1953 FIT-DNA (Cologuard) 1953 FIT 1953 FOBT 1953 Hepatitis C Screening 1955 Medicare Annual Wellness (AWV) 1955 Sigmoidoscopy 1953 Hepatitis B Screening 11/01/1971 DTaP/Tdap/Td Vaccines (1 - Tdap) 1972 Mammogram 1993 Pneumococcal Vaccine: 50+ Ye ars (1 of 1 - PCV) 11/01/2003 Zoster Vaccines (1 of 2) 11/01/2003 COVID-19 Vaccine (1 - 2023-2 5 season) 2024 Depression Risk Screening 08/03/2024 Fall Risk Screening 08/03/2024 SDOH Screening 08/03/2024 Influenza Vaccine (#1) 2025 HIB Vaccines Aged Out No longer eligi ble based on patient's age to complete this topic HPV Vaccines Aged Out No longer eligi ble based on patient's age to complete this topic Hepatitis A Vaccines Aged Out No long er eligible based on patient's age to complete this topic Hepatitis B Vaccines Aged Out No long er eligible based on patient's age to complete this topic IPV Vaccines Aged Out No longer eligi ble based on patient's age to complete this topic Meningococcal B Vaccine Aged Out No l onger eligible based on patient's age to complete this topic Meningococcal Vaccine Aged Out No darshan raman eligible based on patient's age to complete this topic Rotavirus Vaccines Aged Out No longer eligible based on patient's age to complete this topic Insurance MEDICARE Member Subscriber Plan / Payer (Ef fective 2014-Present) Name:Sandie Frank Member ID:[id number] Relation to Subscriber:Self Name:Sandie Frank Subscriber ID:[id number] Payer ID:[id number] Group ID:Not on file Type:Medicare Address: [address]
--- OUTSIDE RECORDS SUMMARY | 2025-03-08 08:40 | XMS_ITS | Encounter Summary ---
Author Organization [employer] ([place], [place], [place], [place]) Address [address] [place] [address] Care Team Providers Care Cathodic Protection Technician Name Role Phone Unavailable Primary Care Provider Unavailabl e Encounter Details Date Type Department Care Team (Late st Contact Info) Description 07/22/2019 Transcribed Document [facility] [place] [address] [place] [address] ProviderSonia MD [address] [place], [place] [address] Social History Tobacco Use Types Packs/Day Years Used Date Smoking Tobacco: Never Assessed Comments Unknown Sex and Gender Information Value Date Recorded Sex Assigned at Not on file Legal Sex Female 1:42 PM CDT Gender Identity Not on file Sexual Orientation Not on file documented as of this encounter Miscellaneous Notes * Cerner Conversion Note - Sonia Boogie MD - 07/22/2019 2:31 PM CLINICAL SYSTEMS ANALYST Initial Discharge Planning Entered On: 07/22/2019 14:43 EST Performed On: 07/22/2019 14:31 EST by RAKEL WOODRUFF SW Initial Assessment I Previously Documented Living Environment : No qualifying data available. Living Situation : Home Patient Lives With : Spouse Emergency Contact #1 : Jose Emergency Contact # Emergency Contact #1 Relationship : spouse Emergency Contact #2 : -Angeline Emergency Contact #2 Phone Number : -[phone] Emergency Contact #2 Relationship : -daughter Enter Doctors Name : Marc Rodriguez MD Does Patient have PCP Listed? : Yes Legal Guardian : No RAKEL WOODRUFF SW - 07/22/2019 14:31 EST Initial Assessment II Sensory and Motor Deficits : Other: Right Total Hip Current Home Treatments and Equipment : Bedside commode, Cane, Walker, Wheelchair RAKEL WOODRUFF - 07/22/2019 14:31 EST Discharge Needs I Anticipated Discharge Date : 07/25/2019 EST Anticipated Discharge To, CM : [facility] facility Current Home Treatment/Equipment : Current Home Treatment/Equipment No qualifying data available. Post Acute/Home Treatments : None Documentation Status Complete : Yes RAKEL WOODRUFFRINKU - 07/22/2019 14:31 EST Discharge Needs II Professional Skilled Services : Professional Skilled Services No qualifying data available. Needs Assistance with Transportation : Maybe Discharge Options Discussed with Patient : [facility], Home Health, Short term rehabilitation RAKEL WOODRUFFRINKU - 07/22/2019 14:31 EST Narrative Note Narrative Note : Met with pt and spouse to assess d/c needs. pt is 63 yo female who resides in [place] with spouse. Pt has Right Total Knee Surgery this morning with Dr. Ramos. Spouse request SNF placement at D/C and states they were receommended by to go to the [facility]. They also have been to [facility] in the past and were pleased and would consider them as well. Pt has seen pt today and has also recommended SNF. Spouse states they will do outpatient PT after SNF placement. Spouse reports pt has Cane, Walker, Wheelchair at home. Will make referrals to [facility] and [facility] for SNF placement in [facility]. Pt has Medicare primary and would require 3 night stay. RAKEL WOODRUFFRINKU - 07/22/2019 14:31 EST documented in this encounter Plan of Treatment Not on file documented as of this encounter Visit Diagnoses Not on filedocumented in this encounter
--- OUTSIDE RECORDS SUMMARY | 2025-03-08 08:40 | XMS_ITS | Encounter Summary ---
Author Organization [employer] ([place], [place], [place]) Address [address] [place] [address] Care Team Providers Care Earth Observations Chief Scientist Name Role Phone Unavailable Primary Care Provider Unavailabl e Encounter Details Date Type Department Care Team (Late st Contact Info) Description 07/30/2019 Transcribed Document [facility] [place] Family Medicine [address] [place] [address] ProviderSonia MD [address] [place], [place] [address] Social History Tobacco Use Types Packs/Day Years Used Date Smoking Tobacco: Never Assessed Comments Unknown Sex and Gender Information Value Date Recorded Sex Assigned at Not on file Legal Sex Female 1:42 PM CDT Gender Identity Not on file Sexual Orientation Not on file documented as of this encounter Miscellaneous Notes * Cerner Conversion Note - Sonia ProviderMD - 07/30/2019 10:00 PM RUMPER Pain Assessment Entered On: 07/31/2019 5:26 EST [...]
--- OUTSIDE RECORDS SUMMARY | 2025-03-08 08:40 | XMS_ITS | Encounter Summary ---
Author Organization [employer] ([place], [place], [place], [place]) Address [address] [place] [address] Care Team Providers Care Resource Conservationist Name Role Phone Unavailable Primary Care Provider Unavailabl e Encounter Details Date Type Department Care Team (Late st Contact Info) Description 07/29/2019 Transcribed Document [facility] [place] Family Medicine [address] [place] [address] ProviderSonia MD [address] [place] [address] Social History Tobacco Use Types Packs/Day Years Used Date Smoking Tobacco: Never Assessed Comments Unknown Sex and Gender Information Value Date Recorded Sex Assigned at Not on file Legal Sex Female 1:42 PM CDT Gender Identity Not on file Sexual Orientation Not on file documented as of this encounter Miscellaneous Notes * Cerner Conversion Note - Sonia ProviderMD - 07/29/2019 2:00 PM TOBACCO ACREAGE MEASURER Pain Assessment Entered On: 07/29/2019 17:45 EST [...]
--- OUTSIDE RECORDS SUMMARY | 2025-03-08 08:40 | XMS_ITS | Encounter Summary ---
[facility] Address [address] [place] [address] Care Team Providers Care Shoe Worker Name Role Phone Marc Rodriguez MD Primary Care Provider [phone] Encounter Details Date Type Department Care Team (Late st Contact Info) Description 11/13/2014 External CPT II TIME STUDY ANALYST - [facility] Social History Tobacco [...] [facility] C[facility] [address] [facility] [address] [address] Jimmy Duncan MD [address] [facility] [address] [place] [address] 06/26/2025 9:30 AM EST Procedure visit [facility] PULMONARY & CRITICAL CARE MEDICINE [address] [place] [address] 06/26/2025 10:00 AM EST Office Visit [facility] PULMONARY & CRITICAL CARE MEDICINE [address] [place] [address] Kaitlin Joiner, STOCK FITTER [address] [place] [address] documented as of this encounter Visit Diagnoses [...] documented as of this encounter Care Teams Shoe Worker Relationship Specialty Start Date End Date Marc Rodriguez MD [address] [facility] [address] [place] [address] PCP - General Adolescent Medicine 12/08/16 documented as of this encounter
--- OUTSIDE RECORDS SUMMARY | 2025-03-08 08:40 | XMS_ITS | Encounter Summary ---
Author Organization [employer] ([place], [place], [place], [place]) Address [address] [place] [address] Care Team Providers Care Caretaker Grounds Name Role Phone Unavailable Primary Care Provider Unavailabl e Encounter Details Date Type Department Care Team (Late st Contact Info) Description 07/29/2019 Transcribed Document [facility] [place] [facility] [place] [address] ProviderSonia MD [facility] [place], [place] [address] Social History Tobacco Use Types Packs/Day Years Used Date Smoking Tobacco: Never Assessed Comments Unknown Sex and Gender Information Value Date Recorded Sex Assigned at Not on file Legal Sex Female 1:42 PM CDT Gender Identity Not on file Sexual Orientation Not on file documented as of this encounter Miscellaneous Notes * Cerner Conversion Note - Sonia ProviderMD - 07/29/2019 11:45 PM CLAIM ADMINISTRATOR Rapid Response Team Documentation Entered On: 07/30/2019 [...] change in location/level of care Rapid Response Caretaker Grounds #1 : Liyah Dobbins, RN Liyah Dobbins, RN - 07/30/2019 0:08 EST Electronically signed by [facility], [facility] Conversion Continuous Improvement Lead Cerner at 11/19/2022 8:42 PM CDT documented in this encounter Plan of Treatment Not on file documented as of this encounter Visit Diagnoses Not on filedocumented in this encounter
--- OUTSIDE RECORDS SUMMARY | 2025-03-08 08:40 | XMS_ITS | Encounter Summary ---
Author Organization [employer] ([place], [place], [place]) Address [address] [place] [address] Care Team Providers Care Asbestos Textile Supervisor Name Role Phone Unavailable Primary Care Provider Unavailabl e Encounter Details Date Type Department Care Team (Late st Contact Info) Description 07/28/2019 Transcribed Document [facility] [facility] [place] [address] ProviderSonia MD [address] [place] [id number] Social History Tobacco Use Types Packs/Day Years Used Date Smoking Tobacco: Never Assessed Comments Unknown Sex and Gender Information Value Date Recorded Sex Assigned at Not on file Legal Sex Female 1:42 PM CDT Gender Identity Not on file Sexual Orientation Not on file documented as of this encounter Miscellaneous Notes * Cerner Conversion Note - Sonia ProviderMD - 07/28/2019 2:00 PM TRANSPORTATION MAINTENANCE OPERATOR Pain Assessment Entered On: 07/28/2019 18:05 EST [...]
--- OUTSIDE RECORDS SUMMARY | 2025-03-08 08:40 | XMS_ITS | Clinical Summary ---
Author Organization [facility] Address [address] [place] [address] Care Team Providers Care Bar Pilot Name Role Phone Marc Rodriguez MD Primary Care Provider [phone] Allergies Active Allergy Reactions Criticality Noted Date Comments Cephalexin Other (See Comments) 10/29/2015 Mouth swelling Clindamycin Swelling 10/29/2015 Throat swelling Codeine 11/27/2016 Erythromycin Other (See Comments) 10/29/2015 Mouth breaks out Gabapentin Unknown - High Severity 05/27/2024 Levofloxacin Unknown (See Comments) 04/15/2018 unknown Pregabalin 10/29/2015 Meropenem Rash Low 08/16/2018 Nirmatrelvir-Ritonavir Other (See Comments) 04/2024 Pt stated it reacted with pt's pain pump and increased effects of fentanyl Medications SODIUM BICARB-TARTARIC ACID PO Take 1 tablet by mouth Every Night. Active Probiotic Product (PROBIOTIC ADVANCED PO) Take by mouth Daily. Active Multiple Vitamins-Mineral s (MULTIVITAMIN WITH MINERALS) tablet tablet Take 1 tablet by mouth Daily. Active QUEtiapine (SEROquel) 300 MG tablet Take 1 tablet by mouth Every Night. 03/24/20 18 Active lamoTRIgine (LaMICtal) 100 MG tablet Take 1 tablet by mouth 2 (Two) Times a Day. 03/24/20 18 Active DULoxetine (CYMBALTA) 60 MG capsule Take 1 capsule by mouth 2 (Two) Times a Day. 03/24/20 18 Active memantine (NAMENDA) 10 MG tablet Take 1 tablet by mouth 2 (Two) Times a Day. 01/27/20 19 Active sodium bicarbonate 650 MG tablet Take 1 tablet by mouth 2 (Two) Times a Day. 01/27/20 19 Active donepezil (ARICEPT) 23 MG tablet Take 1 tablet by mouth Daily. 05/02/20 20 Active levothyroxine (SYNTHROID, LEVOTHROID) 88 MCG tablet Take 1 tablet by mouth. Active hydrocortisone (CORTEF) 5 MG tablet Take 1 tablet by mouth 2 (Two) Times a Day. Active Lutein 20 MG tablet lutein 20 mg tablet Take by oral route. Active Melatonin 10 MG capsule Take 1 capsule by mouth Every Night. Active naloxone (NARCAN) 4 MG/0.1ML nasal spray Narcan 4 mg/actuation nasal spray 10/29/19 22 Active fluticasone (Flonase) 50 MCG/ACT nasal spray 2 sprays by Each Nare route Daily. 18 mL 11 02/25/20 22 Active nystatin (MYCOSTATIN) 100,000 unit/mL suspension Take 5 mL by mouth 4 (Four) Times a Day. 280 mL 04/16/20 22 Active acetaminophen (TYLENOL) 500 MG tablet Take 2 tablets by mouth Every 6 (Six) Hours As Needed. Active denosumab (PROLIA) 60 MG/ML solution prefilled syringe syringe Inject 1 mL under the skin into the appropriate area as directed. Active montelukast (SINGULAIR) 10 MG tabletIndication s:Chronic allergic rhinitis Take 1 tablet by mouth every night at bedtime. 30 tablet 5 01/26/20 24 Active Fluticasone Furoate-Vilanter ol 100-25 MCG/ACT aerosol powderIndication s:Severe persistent asthma without complication Inhale 1 puff Daily. 60 each 2 03/09/20 24 Active aspirin 81 MG chewable tablet Chew 1 tablet Daily. Active busPIRone (BUSPAR) 5 MG tablet Take 1 tablet by mouth 3 (Three) Times a Day. Active calcium carbonate (TUMS) 500 MG chewable tablet Chew 1 tablet Daily. 1250 MG QD Active dantrolene (DANTRIUM) 25 MG capsule Take 3 capsules by mouth 4 (Four) Times a Day. Active polyethylene glycol (MiraLax) 17 GM/SCOOP powder Take 17 g by mouth Daily As Needed. Active pantoprazole (PROTONIX) 40 MG EC tablet Take 1 tablet by mouth Daily. Active simethicone (MYLICON) 80 MG chewable tablet Chew 1 tablet Every 6 (Six) Hours As Needed for Flatulence. Active gabapentin (NEURONTIN) 100 MG capsule Take 1 capsule by mouth 3 (Three) Times a Day. Active Emgality 120 MG/ML auto-injector pen 07/19/20 24 Active ondansetron (ZOFRAN) 4 MG tablet Take 1 tablet by mouth. 07/13/20 24 Active Trulance 3 MG tablet Take 1 tablet by mouth Daily. 10/24/19 25 Active Ubrelvy 100 MG tablet TAKE 1 TABLET BY MOUTH ONE TIME NEEDED FOR MIGRAINE. AFTER 2 HOURS, A SECOND DOSE MAY BE TAKEN IF NEEDED. MAX 200MG IN 24 HOURS 12/10/19 25 Active Dupilumab (Dupixent) 300 MG/2ML solution auto-injector injection Inject 2 mL under the skin into the appropriate area as directed Every 14 (Fourteen) Days. Active albuterol sulfate HFA 108 (90 Base) MCG/ACT inhaler INHALE 2 PUFFS BY MOUTH EVERY 4 HOURS NEEDED FOR WHEEZING FOR SHORTNESS OF BREATH 18 g 5 01/06/20 25 Active rosuvastatin (CRESTOR) 20 MG tablet Take 1 tablet by mouth Daily. 90 tablet 02/11/20 25 Active rosuvastatin (CRESTOR) 20 MG tablet Take 1 tablet by mouth Daily. 025 Discontin ued(Reord er) Active Problems Problem Noted Date Diagnosed Date Pertussis 11/03/2022 Overview (12/10/2022): October 2022 CKD (chronic kidney disease) 07/30/2021 Cervical cord compression with myelopathy 2020 Overview (08/27/2021): Added automatically from request for surgery [id number] Lumbosacral radiculopathy at L5 04/22/2021 Overview (08/27/2021): Added automatically from request for surgery [id number] Chronic bilateral low back pain with bilateral s ciatica 04/22/2021 Overview (08/27/2021): Added automatically from request for surgery [id number] Spinal stenosis, lumbar clara on without neurogenic claudication 04/22/2021 Overview (08/27/2021): Added automatically from request for surgery [id number] Environmental and seasonal allergies 11/12/2020 Restless legs syndrome 11/12/2020 Adrenal insufficiency 02/22/2019 Overview (02/22/2019): chronic steroids - Cortef Rheumatoid arthritis 08/31/2018 Fibromyalgia 08/31/2018 Chronic cough 12/24/2017 Severe persistent asthma without complication Chronic allergic rhinitis 12/24/2017 Gastroesophageal reflux disease 12/24/2017 Encounters Date Type Department Care Team Description 03/07/2025 [facility] CARDIOLOGY [address] [place] [address] [address] [place] [address] QAZI - LAB ORDERS 03/06/2025 [facility] CARDIOLOGY [address] [place] [address] Jimmy Duncan MD 02/10/2025 [facility] CARDIOLOGY [address] [place] [address] [address] [place] [address] Jimmy Duncan MD Med Refill 02/10/2025 [facility] CARDIOLOGY [address] [place] [address] Jimmy Duncan MD 02/10/2025 [facility] CARDIOLOGY [address] [place] [address] [address] [place] [address] QAZI - SCHEDULING REQUEST 01/06/2025 [facility] PULMONARY & CRITICAL CARE MEDICINE [address] [place] [address] Sumaya Bruno, Furnace Hand 01/06/2025 Telephone [facility] PULMONARY & CRITICAL CARE MEDICINE [address] [place] [address] Kaitlin Joiner APRN Prior Authorization 01/05/2025 Refill [facility] PULMONARY & CRITICAL CARE MEDICINE [address] [place] [address] Kaitlin Joiner APRN 12/30/2024 10:00 AM EDT Office Visit [facility] PULMONARY & CRITICAL CARE MEDICINE [address] [place] [address] Kaitlin Joiner, HELMET HAT SWEATBAND PUNCHER Severe persistent asthma without complication (Primary Dx); Environmental and seasonal allergies; Chronic cough 12/30/2024 9:04 AM EDT Hospital Encounter [facility] PULMONARY & CRITICAL CARE MEDICINE [address] [place] [address] 12/30/2024 Travel from Last 3 Months Immunizations Immunization Administration Dates Next Due COVID-19 (MODERNA) 1st,2nd,3 rd Dose Monovalent 12/19/2021,06/19/2021,10/14/2020,09/16 COVID-19 (MODERNA) Monovalen t Original Booster 04/30/2022,07/15/2021 Flu Vaccine Split Quad 05/24/2015 Fluzone >6mos 05/17/2015 Fluzone High-Dose 65+YRS 05/01/2023,03/30/2020,1 Fluzone High-Dose 65+yrs 06/07/2022,05/04,03/30/2020,05/27 Fluzone Quad >6mos (Multi-dose) 06/07/2018,05/06,05/24/2015 Hepatitis A 02/17/2019,07/19/2018 Influenza, Unspecified 05/05/2022,06/03/2018 Pneumococcal Conjugate 13-Va lent (PCV13) 03/25/2019 Pneumococcal Polysaccharide (PPSV23) 03/11/2022 Pneumococcal, Unspecified 03/10/2016 Shingrix 01/21/2023 Td (TDVAX) 10/07/1996 Tdap 12/09/2022,09/19/2015 Family History Medical History Relation Name Comments Alcohol abuse Father Emphysema Father Cancer Mother bone Coronary artery disease Mother Diabetes Mother Diabetes type II Mother 60s Heart attack Mother 70s, x2 at age 88 Heart disease Mother Hypertension Mother Stroke Mother Arthritis Other 1 Grandparent Hyperlipidemia Other 2 Cancer Sister Diabetes Sister Diabetes type II Sister 50s Hypertension Sister Relation Name Status Comments Brother Alive Father Maternal Grandfather Maternal Grandmother Mother Other 1 Grandparent Other 2 Paternal Grandfather Paternal Grandmother Sister Social History Tobacco Use Types Packs/Day Years Used Date Smoking Tobacco: Never Smokeless Tobacco: Never Tobacco Cessation:Counseling Given: Not Answered Alcohol Use Standard Drinks/Week Comments No 0 (1 standard drink = 0.6 oz pur e alcohol) Comments No Sex and Gender Information Value Date Recorded Sex Assigned at Female 12/29/2024 10:37 AM EDT Legal Sex Female 10:05 AM EDT Gender Identity Not on file Sexual Orientation Not on file Last Filed Vital Signs Vital Sign Reading Time Taken Comments Blood Pressure 120/80 12/30/2024 9:22 AM EDT Pulse 63 12/30/2024 9:22 AM EDT Temperature 36.5 C (97.7 F) 12/30/2024 9:22 AM EDT Respiratory Rate 19 06/09/2024 10:3 3 AM EST Oxygen Saturation 96% 12/30/2024 9:2 2 AM EDT room air at rest Inhaled Oxygen Concentration - - Weight 88.5 kg (195 lb) 12/30/2024 9:22 AM EDT Height 170.2 cm (5' 7 ) 06/09/2024 10:3 3 AM EST Body Mass Index 30.54 06/09/2024 10:33 AM EST Plan of Treatment Upcoming Encounters Date Type Department Care Team (Late st Contact Info) Description 03/13/2025 9:45 AM EDT Office Visit [facility] CARDIOLOGY [address] [address] Jimmy Duncan MD [address] [facility] [address] [place] [address] 06/26/2025 9:30 AM EST Procedure visit [facility] PULMONARY & CRITICAL CARE MEDICINE [address] [place] [address] 06/26/2025 10:00 AM EST Office Visit [facility] PULMONARY & CRITICAL CARE MEDICINE [address] [place] [address] Kaitlin Joiner, HELMET HAT SWEATBAND PUNCHER [address] [place] [address] Health Maintenance Due Date Last Done Comments ANNUAL WELLNESS VISIT 12/08/2020 12/09/2019 , 11/26/2018, 12/12/2015 DXA SCAN 02/07/2021 02/07/2019, 04/07/2017 MAMMOGRAM 04/29/2021 04/29/2019, 09/04, 09/26/2015 ZOSTER VACCINE (2 of 2) 03/18/2023 01/21/2023 COVID-19 Vaccine (2023- 5 season) 2024 04/30/2022, 12/19/2021, 07/15/2021, Additional history exists INFLUENZA VACCINE 05/03/2025 05/01/2023, , 05/05/2022, Additional history exists TDAP/TD VACCINES (4 - Td or Tdap) 12/09/2032 12/09/2022, 09/19/2015, 10/07/1996 COLON CANCER SCREENING 5 YEA R SIGMOIDOSCOPY Discontinued 04/16/2016 COLONOSCOPY Discontinued 06/02/2018 COLORECTAL CANCER SCREENING Discontinued Pneumococcal Vaccine 50+ Completed 022, 03/25/2019, 05/17/2018, Additional history exists HEPATITIS C SCREENING Completed 04/25/[address] COLONOGRAPHY Discontinued FECAL OCCULT BLOOD TEST Discontinued FIT Testing (1 year) Discontinued Procedures Procedure Name Priority Date/Time Associated Diagnosis Comments SCANNED - LABS Routine 02/20/2025 12:27 PM EDT BREATHING CAPACITY TEST Routine 12/30/2024 3:29 PM EDT Severe persistent asthma without complication XR CHEST AP Routine 12/30/2024 9:14 AM EDT Severe persistent asthma without complication from Last 3 Months Results * LABS SCANNED (02/20/2025 12:27 PM EDT) [facility] Provider LAB BLOOD ORDERABLES Angelita l Result * Breathing Capacity Test (12/30/2024 3:29 PM EDT) us Kaitlin L Rhys HELMET HAT SWEATBAND PUNCHER PFT ORDERABLES Final Result * XR Chest AP (12/30/2024 9:14 AM EDT) Anatomical Region Laterality Modality Body, Chest N/A Radiographic Jami ging 12/30/2024 9:25 AM EDT Impressions 12/30/2024 9:27 AM EDT Impression: No acute cardiopulmonary abnormality. Electronically Signed: Angeline Cooper MD 12/30/2024 9:27 AM EDT Workstation ID: [id number] Narrative 12/30/2024 9:27 AM EDT XR CHEST [...] MD 12/30/2024 9:27 AM EDT Workstation ID: [id number] us Kaitlin L Rhys [facility] IMG DIAGNOSTIC IMAGING ORDER JORDANA Final Result from Last 3 Months Insurance MEDICARE A & B Member Subscriber Plan / Payer (Ef fective 2014-Present) Name:Sandie Frank Member ID:[id number] Relation to Subscriber:Self Name:Sandie Frank Subscriber ID:[id number] Payer ID:[id number] Group ID:Not on file Type:Not on file Address: [address] [place] Care Teams Bar Pilot Relationship Specialty Start Date End Date Marc Rodriguez MD [address] [facility] [facility] [address] [place] [address] PCP - General Adolescent Medicine 12/08/16
--- OUTSIDE RECORDS SUMMARY | 2025-03-08 08:40 | XMS_ITS | Encounter Summary ---
Author Organization [employer] ([place], [place], [place], [place]) Address [address] [place] [address] Care Team Providers Care Negative Turner Apprentice Name Role Phone Unavailable Primary Care Provider Unavailabl e Encounter Details Date Type Department Care Team (Late st Contact Info) Description 07/28/2019 Transcribed Document [facility] [place] [facility] [place] [address] [place] [address] ProviderSonia MD [address], [place] [id number] Social History Tobacco Use Types Packs/Day Years Used Date Smoking Tobacco: Never Assessed Comments Unknown Sex and Gender Information Value Date Recorded Sex Assigned at Not on file Legal Sex Female 1:42 PM CDT Gender Identity Not on file Sexual Orientation Not on file documented as of this encounter Miscellaneous Notes * Cerner Conversion Note - Historical ProviderMD - 07/28/2019 5:00 AM CENTRIFUGAL WAX MOLDER Chart Check - Review Order Profile Entered On: 07/28/2019 4:25 EST Performed On: 07/28/2019 5:00 EST by Myrna Deleon, RN Chart Check Powerplans Initiated/Discontinued as Appropriate : Yes All Active Orders Reviewed : Yes Myrna Deleon, RN - 07/28/2019 4:25 EST Electronically signed by Raman [facility] Conversion Cat Scanner Operator Cerner at 11/19/2022 8:33 PM CDT documented in this encounter Plan of Treatment Not on file documented as of this encounter Visit Diagnoses Not on filedocumented in this encounter
--- OUTSIDE RECORDS SUMMARY | 2025-03-08 08:40 | XMS_ITS ---
Author Organization [facility] Address [address] [place] [address] Care Team Providers Care Online Education Manager Name Role Phone Marc Rodriguez MD Primary Care Provider [phone] Asthma - External Fill Status:Enrolled (Active) Start date:05/10/2024 Enrollment date:05/10/2024 Enrollment reason:Identified as being on target medication Current support & services provided:Refill Coordination , Benefits Investigation, Prior Authorization, External Pharmacy Dispensing Linked medications:Dupilumab () Linked problems:Severe persistent asthma without complication (Active) Continued Care and Services Coordination
--- OUTSIDE RECORDS SUMMARY | 2025-03-08 08:40 | XMS_ITS | Encounter Summary ---
Author Organization [employer] ([place], [place], [place], [place]) Address [address] [place] [address] Care Team Providers Care Women'S Studies Lecturer Name Role Phone Unavailable Primary Care Provider Unavailabl e Encounter Details Date Type Department Care Team (Late st Contact Info) Description 07/28/2019 Transcribed Document [facility] [place] [address] [place] [address] ProviderSonia MD [address] [place] [place], [place] [address] Social History Tobacco Use Types Packs/Day Years Used Date Smoking Tobacco: Never Assessed Comments Unknown Sex and Gender Information Value Date Recorded Sex Assigned at Not on file Legal Sex Female 1:42 PM CDT Gender Identity Not on file Sexual Orientation Not on file documented as of this encounter Miscellaneous Notes * Cerner Conversion Note - Sonia ProviderMD - 07/28/2019 5:00 PM BRAIDER TENDER Chart Check - Review Order Profile Entered On: 07/28/2019 19:59 EST Performed On: 07/28/2019 17:00 EST by Esther Cunningham RN Chart Check Powerplans Initiated/Discontinued as Appropriate : Yes All Active Orders Reviewed : Yes Esther Cunningham RN - 07/28/2019 19:59 EST documented in this encounter Plan of Treatment Not on file documented as of this encounter Visit Diagnoses Not on filedocumented in this encounter
--- OUTSIDE RECORDS SUMMARY | 2025-03-08 08:40 | XMS_ITS | Encounter Summary ---
Author Organization [employer] ([place], [place], [place], [place]) Address [address] [place] [address] Care Team Providers Care Structural Engineering Drafting Officer Name Role Phone Unavailable Primary Care Provider Unavailabl e Encounter Details Date Type Department Care Team (Late st Contact Info) Description 07/29/2019 Transcribed Document [facility] [place] [address] [place] [address] ProviderSonia MD [address], [place] [address] Social History Tobacco Use Types Packs/Day Years Used Date Smoking Tobacco: Never Assessed Comments Unknown Sex and Gender Information Value Date Recorded Sex Assigned at Not on file Legal Sex Female 1:42 PM CDT Gender Identity Not on file Sexual Orientation Not on file documented as of this encounter Miscellaneous Notes * Cerner Conversion Note - Sonia ProviderMD - 07/29/2019 5:00 PM MARKETING AUTOMATION ANALYST Chart Check - Review Order Profile Entered On: 07/29/2019 16:15 EST Performed On: 07/29/2019 17:00 EST by Trina Adorno RN Chart Check Powerplans Initiated/Discontinued as Appropriate : Yes All Active Orders Reviewed : Yes Trina Adorno RN - 07/29/2019 16:15 EST documented in this encounter Plan of Treatment Not on file documented as of this encounter Visit Diagnoses Not on filedocumented in this encounter
--- OUTSIDE RECORDS SUMMARY | 2025-03-08 08:40 | XMS_ITS | Encounter Summary ---
Author Organization [facility] Address [address] [place] [address] Care Team Providers Care Food Safety Specialist Name Role Phone Marc Rodriguez MD Primary Care Provider [phone] Edgardo Zuñiga MD Unavailable [phone] Giulia Briggs Unavailable [phone] Edgardo Zuñiga MD Unavailable [phone] Esther Mathew Unavailable [phone] Reason for Visit * Reason Onset Date Comments Med Refill 07/05/2024 Encounter Details Date Type Department Care Team (Late st Contact Info) Description 07/05/2024 Refill [facility] [address] [place] [address] Esther Mathew PA [address] [place] [address] Social History Tobacco Use Types [...] place to sleep or slept in a assisted (including now)? No 05/13/2024 PHQ-9 Answer Date Recorded Patient Health Questionnaire-9 Score 0 07/05/2024 Utilities Answer Date Recorded In the past 12 months has th e [employer], gas, oil, or water company threatened to [...] 1 Month) No 07/05/2024 10:00 AM EST Nubia Preeti Ledezma 6. Suicidal Behavior (Lifetime) No 10:00 AM [...] Description 03/08/2025 1:40 PM EDT Office Visit [facility] Orthopaedic Surgery & Sports Medicine [address] [place] [address] Edgardo Zuñiga MD [address] [place] [address] 03/09/2025 1:20 PM EDT Office Visit [facility] [address] [place] [address] Suzan Galindo DO [address] [place] [address] documented as of this encounter [...] documented as of this encounter Care Teams Food Safety Specialist Relationship Specialty Start Date End Date Marc Rodriguez MD [address] [place] [id number] PCP - General 12/14/20 Edgardo Zuñiga MD [address] [place] [address] Surgeon Neurosurgery 03/04/21 Giulia Briggs PA [address] [place] [address] Physician Grip Assembler Neurosurgery 07/03/21 Edgardo Zuñiga MD [address] [place] [address] Surgeon Neurosurgery 09/16/21 Esther Mathew PA [address] [place] [address] Physician Grip Assembler Neurology 11/19/22 documented as of this encounter
--- OUTSIDE RECORDS SUMMARY | 2025-03-08 08:40 | XMS_ITS | Encounter Summary ---
Author Organization [employer] ([place], [place], [place], [place]) Address [address] [place] [address] Care Team Providers Care Mirror Department Supervisor Name Role Phone Unavailable Primary Care Provider Unavailabl e Encounter Details Date Type Department Care Team (Late st Contact Info) Description 07/28/2019 Transcribed Document [facility] [place] [address] [place] [address] ProviderSonia MD [address] [place] [address] Social History Tobacco Use Types Packs/Day Years Used Date Smoking Tobacco: Never Assessed Comments Unknown Sex and Gender Information Value Date Recorded Sex Assigned at Not on file Legal Sex Female 1:42 PM CDT Gender Identity Not on file Sexual Orientation Not on file documented as of this encounter Miscellaneous Notes * Cerner Conversion Note - Sonia ProviderMD - 07/28/2019 10:00 PM SPEECH SCIENTIST Pain Assessment Entered On: 07/29/2019 3:30 EST Performed On: 07/28/2019 22:35 EST by Myrna Deleon RN Intervention Information: acetaminophen Performed by Mryna Deleon RN on 07/28/2019 21:35:00 EST acetaminophen,1000mg [...]
--- OUTSIDE RECORDS SUMMARY | 2025-03-08 08:40 | XMS_ITS | Encounter Summary ---
Author Organization [employer] ([place], [place]) Address [address] [place] [address] Care Team Providers Care Database Marketing Specialist Name Role Phone Unavailable Primary Care Provider Unavailabl e Encounter Details Date Type Department Care Team (Late st Contact Info) Description 08/02/2019 Transcribed Document [facility] [place] Family Medicine [address] [place] [address] ProviderSonia MD [address] [place], [place] [address] Social History Tobacco Use Types Packs/Day Years Used Date Smoking Tobacco: Never Assessed Comments Unknown Sex and Gender Information Value Date Recorded Sex Assigned at Not on file Legal Sex Female 1:42 PM CDT Gender Identity Not on file Sexual Orientation Not on file documented as of this encounter Miscellaneous Notes * Cerner Conversion Note - Sonia ProviderMD - 08/02/2019 10:44 AM MARINE OILER Stroke/Warfarin Instructions Entered On: 08/02/2019 10:44 EST Performed On: 08/02/2019 10:44 EST by Aimee Willis RN Stroke/Warfarin Instructions Stroke/TIA Discharge Ins : N/A Warfarin Discharge Ins : N/A Aimee Willis RN - 08/02/2019 10:44 EST documented in this encounter Plan of Treatment Not on file documented as of this encounter Visit Diagnoses Not on filedocumented in this encounter
--- OUTSIDE RECORDS SUMMARY | 2025-03-08 08:40 | XMS_ITS | Encounter Summary ---
Author Organization [employer] ([place], [place], [place], [place]) Address [address] [place] [address] Care Team Providers Care Spa Supervisor Name Role Phone Unavailable Primary Care Provider Unavailabl e Encounter Details Date Type Department Care Team (Late st Contact Info) Description 07/22/2019 Transcribed Document [facility] Family Medicine [address] [place] [address] ProviderSonia MD [address] [place], [place] [address] Social History Tobacco Use Types Packs/Day Years Used Date Smoking Tobacco: Never Assessed Comments Unknown Sex and Gender Information Value Date Recorded Sex Assigned at Not on file Legal Sex Female 1:42 PM CDT Gender Identity Not on file Sexual Orientation Not on file documented as of this encounter Miscellaneous Notes * Cerner Conversion Note - Sonia Boogie MD - 07/22/2019 8:11 AM NURSE PRACTITIONER HOME ASSESSMENTS [facility] Main OR PreOp Summary Primary Physician: PEE VILLAR MD-ORT Finalized Date/Time: 08/01/19 08:35:37 Pt. Name: SANDIE AMARO Jovana Castellano/Sex: 1955 Female Med Rec #: [id number] Physician: PEE VILLAR MD-ORT Financial #: [id number] Pt. Type: I Room/Bed: 427/1 Admit/Disch: 07/22/19 04:50:00 - Institution: [facility] PreOp Case Times Entry 1 In Preop 07/22/19 05:30:00 Ready for Holding n/a Room Patient Ready for 07/22/19 06:35:00 Surgery Patient Out of Preop 07/22/19 07:35:00 Patient Out of n/a Holding Room Last Modified By: TIMOTHY OMALLEY 08/01/19 08:35:34 SJNeal PreOp Case Times Audit 08/01/19 08:35:34 Grout Worker: ZA Modifier: [email or web address] <+> 1 Patient Out of Preop Finalized By: TIMOTHY OMALLEY Document Signatures Signed By: TIMOTHY OMALLEY 08/01/19 08:35 documented in this encounter Plan of Treatment Not on file documented as of this encounter Visit Diagnoses Not on filedocumented in this encounter
--- OUTSIDE RECORDS SUMMARY | 2025-03-08 08:40 | XMS_ITS | Encounter Summary ---
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 [address], [place] [address] Jimmy Duncan MD [address] [facility] [address] [place] [address] 06/26/2025 9:30 AM EST Procedure visit [facility] PULMONARY & CRITICAL CARE MEDICINE [address] [place] [address] 06/26/2025 10:00 AM EST Office Visit [facility] PULMONARY & CRITICAL CARE MEDICINE [address] [place] [address] Kaitlin Joiner, MEDICAL LABORATORY TECHNICIAN [address] [place] [address] documented as of this encounter Visit Diagnoses [...] documented as of this encounter Care Teams Die Maker Apprentice Relationship Specialty Start Date End Date Marc Rodriguez MD [address] [facility] [address] [place] [address] PCP - General Adolescent Medicine 12/08/16 documented as of this encounter
--- OUTSIDE RECORDS SUMMARY | 2025-03-08 08:41 | XMS_ITS | Encounter Summary ---
Author Organization [employer] ([place], [place], [place], [place]) Address [address] [place] [address] Care Team Providers Care Nuclear Fuel Processing Technician Name Role Phone Unavailable Primary Care Provider Unavailabl e Encounter Details Date Type Department Care Team (Late st Contact Info) Description 07/29/2019 Transcribed Document [facility] [place] [facility] Family Medicine [address] [place] [address] ProviderSonia MD [address] [place], [place] [address] Social History Tobacco Use Types Packs/Day Years Used Date Smoking Tobacco: Never Assessed Comments Unknown Sex and Gender Information Value Date Recorded Sex Assigned at Not on file Legal Sex Female 1:42 PM CDT Gender Identity Not on file Sexual Orientation Not on file documented as of this encounter Miscellaneous Notes * Cerner Conversion Note - Sonia ProviderMD - 07/29/2019 2:00 AM STOCK RAISER Inflated Ball Molder Details Entered On: 07/29/2019 3:31 EST Performed On: 07/29/2019 2:00 EST by Myrna Deleon, RN Order Details Transport Mode Order Detail : Bed (including specialty) Isolation Precautions Order Detail : Standard Precautions Order Detail : 0 IV Order Detail : 1 Oxygen Order Detail : 0 Nurse Collect Order Detail : 0 Lift/Transfer : Maximal assist Central Line Order Detail : No Room Service : Appropriate Arterial Line : No Myrna Deleon, NICOLASA - 07/29/2019 3:31 EST Electronically signed by Raman [facility] Conversion Social Services Specialist Cerner at 11/19/2022 8:45 PM CDT documented in this encounter Plan of Treatment Not on file documented as of this encounter Visit Diagnoses Not on filedocumented in this encounter
--- OUTSIDE RECORDS SUMMARY | 2025-03-08 08:41 | XMS_ITS | Encounter Summary ---
Author Organization [employer] ([place], [place], [place], [place]) Address [address] [place] [address] Care Team Providers Care Refinery Operator Reforming Unit Name Role Phone Unavailable Primary Care Provider Unavailabl e Encounter Details Date Type Department Care Team (Late st Contact Info) Description 07/30/2019 Transcribed Document [facility] Family Medicine [address] [place] [address] ProviderSonia MD [address], [place] [address] Social History Tobacco Use Types Packs/Day Years Used Date Smoking Tobacco: Never Assessed Comments Unknown Sex and Gender Information Value Date Recorded Sex Assigned at Not on file Legal Sex Female 1:42 PM CDT Gender Identity Not on file Sexual Orientation Not on file documented as of this encounter Miscellaneous Notes * Cerner Conversion Note - Sonia ProviderMD - 07/30/2019 2:00 PM DEVELOPER ANALYST Pain Assessment Entered On: 07/30/2019 20:49 EST [...]
--- OUTSIDE RECORDS SUMMARY | 2025-03-08 08:41 | XMS_ITS | Encounter Summary ---
Author Organization [employer] ([place], [place], [place], [place]) Address [address] [place] [address] Care Team Providers Care Motor Vehicle Compliance Analyst Name Role Phone Unavailable Primary Care Provider Unavailabl e Encounter Details Date Type Department Care Team (Late st Contact Info) Description 07/30/2019 Transcribed Document [facility] Family Medicine [address] [place] [address] ProviderSonia MD [address] [place], [place] [address] Social History Tobacco Use Types Packs/Day Years Used Date Smoking Tobacco: Never Assessed Comments Unknown Sex and Gender Information Value Date Recorded Sex Assigned at Not on file Legal Sex Female 1:42 PM CDT Gender Identity Not on file Sexual Orientation Not on file documented as of this encounter Miscellaneous Notes * Cerner Conversion Note - Historical ProviderMD - 07/30/2019 2:00 AM WIRELESS OPERATOR Parking Meter Attendant Details Entered On: 07/30/2019 2:09 EST Performed On: 07/30/2019 2:00 EST by Myrna Deleon, NICOLASA Order [...] Line : No Myrna Deleon, NICOLASA - 07/30/2019 2:09 EST documented in this encounter Plan of Treatment Not on file documented as of this encounter Visit Diagnoses Not on filedocumented in this encounter
[2025-03-08 09:33] LABS: Hematocrit 40.9 % (37.0-47.0); Hemoglobin 13.4 g/dL (12.2-16.2); Immature Granulocytes % 0.3 %; Mean Corpuscular HGB Conc 32.8 g/dL (31.8-35.4); Mean Corpuscular Hemoglobin 33.3 pg (27.0-31.2); Mean Corpuscular Volume 101.5 fl (81-99); Nucleated Red Blood Cells % 0 %; Platelet Count 82 K/mm3 (142-424); Red Blood Count 4.03 M/mm3 (4.20-5.40); Red Cell Distribution Width-SD 47.8 fL; White Blood Count 3.4 K/mm3 (4.8-10.8)
[2025-03-08 09:58] LABS: Albumin Level 3.8 g/dl (3.5-5.0)
[2025-03-08 09:59] LABS: Chloride 103 mmol/L (98-107); Potassium 4.8 mmoL/L (3.5-5.1); Sodium 137 mmol/L (136-145)
[2025-03-08 10:01] LABS: Bilirubin,Unconjugated 0.1 mg/dL (0.0-1.1); Blood Urea Nitrogen 14 mg/dl (7-17); Creatinine,Serum 0.60 mg/dl (0.52-1.04); Estimated Glomerular Filt Rate 99 ml/min (>60); GFR (African American) 119 ML/MIN (>60)
[2025-03-08 10:02] LABS: Alanine Aminotransferase 35 U/L (12-78); Alkaline Phosphatase 131 U/L (38-126); Aspartate Amino Transferase 65 U/L (14-36); Bilirubin,Direct 0.8 mg/dl (0.0-0.4); Bilirubin,Indirect 0.0 mg/dL (0.0-0.9); Bilirubin,Total 0.8 mg/dl (0.2-1.3); Cholesterol 160 mg/dl (140-200); Total Protein,Serum 6.6 g/dl (6.3-8.2); Triglycerides 91 mg/dl (30-150)
[2025-03-08 10:16] LABS: HDL Cholesterol 110 mg/dl (40-60)
[2025-03-08 11:55] LABS: Anion Gap 9.8 mEq/L (5-15); Calcium 9.7 mg/dl (8.4-10.2); Carbon Dioxide 29 mmol/L (22.0-30.0); Glucose 64 mg/dl (74-100)
== END 2025-03-08 23:59 | disposition home or self-care (01) ==
LOC: LAB 08:33
PROVIDERS: PCP Internal Medicine Adolescent Medicine; Visit Provider Internal Medicine Interventional Cardiology
DX: I10 Essential (primary) hypertension (principal)
CPT/HCPCS: 36415; 80048; 80061; 80076; 85025

== ENCOUNTER 2025-03-14 10:50 | Outpatient (CLI) | payer MEDICARE, BC, SELFPAY ==
--- OUTSIDE RECORDS SUMMARY | 2017-12-24 10:37 | XMS_ITS | Encounter Summary ---
Author Organization [facility] Address [address] [place] [address] Care Team Providers Care Schedule Checker Name Role Phone Marc Rodriguez MD Primary Care Provider [phone] Encounter Details Date Type Department Care Team (Late st Contact Info) Description 12/24/2017 10:37 AM EDT Hospital Encounter [facility] PULMONARY & CRITICAL CARE MEDICINE [address] [facility] [place] [address] Social History Tobacco Use Types Packs/Day Years [...] Description 06/26/2025 9:30 AM EST Procedure visit [facility] PULMONARY & CRITICAL CARE MEDICINE [address] [place] [address] 06/26/2025 10:00 AM EST Office Visit [facility] PULMONARY & CRITICAL CARE MEDICINE [address] [place] [address] Kaitlin Joiner, TOBACCO STRIPPER HAND [address] [place] [address] 09/12/2025 10:00 AM EST Office Visit [facility] CARDIOLOGY [address] [facility] [address] [place] [address] Jimmy Duncan MD [address] [facility] [address] [place] [address] documented as of this encounter Procedures Procedure [...] documented as of this encounter Care Teams Schedule Checker Relationship Specialty Start Date End Date Marc Rodriguez MD [address] [facility] [address] [place] [address] PCP - General Adolescent Medicine 12/08/16 documented as of this encounter
--- OUTSIDE RECORDS SUMMARY | 2018-08-16 11:42 | XMS_ITS | Encounter Summary ---
Author Organization [facility] Address [address] [place] [address] Care Team Providers Care Candy Dipper Hand Name Role Phone Marc Rodriguez MD Primary Care Provider [phone] Encounter Details Date Type Department Care Team (Late st Contact Info) Description 08/16/2018 10:42 AM EST Hospital Encounter [facility] PULMONARY & CRITICAL CARE MEDICINE [address] [place] [address] Social History Tobacco Use Types Packs/Day Years [...] Description 06/26/2025 9:30 AM EST Procedure visit [facility] PULMONARY & CRITICAL CARE MEDICINE [address] [facility] [place] [address] 06/26/2025 10:00 AM EST Office Visit [facility] PULMONARY & CRITICAL CARE MEDICINE [address] [facility] [place] [address] Kaitlin Joiner, OLIVE PITTER [address] [place] [address] 09/12/2025 10:00 AM EST Office Visit [facility] CARDIOLOGY [address] [facility] [address] [place] [phone] Jimmy Duncan MD [address] [facility] [address] [place] [address] documented as of this encounter Procedures Procedure [...] documented as of this encounter Care Teams Candy Dipper Hand Relationship Specialty Start Date End Date Marc Rodriguez MD [address] [place] [address] PCP - General Adolescent Medicine 12/08/16 documented as of this encounter
--- OUTSIDE RECORDS SUMMARY | 2020-11-12 08:42 | XMS_ITS | Encounter Summary ---
Author Organization [facility] Address [address] [place] [address] Care Team Providers Care Director Correctional Agency Name Role Phone Marc Rodriguez MD Primary Care Provider [phone] Encounter Details Date Type Department Care Team (Late st Contact Info) Description 11/12/2020 8:42 AM EDT Hospital Encounter [facility] PULMONARY & CRITICAL CARE MEDICINE [address] [facility] [place] [address] Social History Tobacco Use Types Packs/Day Years [...] Description 06/26/2025 9:30 AM EST Procedure visit [facility] PULMONARY & CRITICAL CARE MEDICINE [address] [place] [address] 06/26/2025 10:00 AM EST Office Visit [facility] PULMONARY & CRITICAL CARE MEDICINE [address] [place] [address] Kaitlin Joiner, CLIENT DIRECTOR [address] [place] [address] 09/12/2025 10:00 AM EST Office Visit [facility] CARDIOLOGY [address] [facility] [address] [place] [address] Jimmy Duncan MD [address] [facility] [address] [place] [address] documented as of this encounter Procedures Procedure [...] documented as of this encounter Care Teams Director Correctional Agency Relationship Specialty Start Date End Date Marc Rodriguez MD [facility] [address] [phone] PCP - General Adolescent Medicine 12/08/16 documented as of this encounter
--- OUTSIDE RECORDS SUMMARY | 2022-07-11 14:36 | XMS_ITS | Encounter Summary ---
Author Organization [facility] Address [address] [place] [address] Care Team Providers Care Manager Of Software Development Name Role Phone Marc Rodriguez MD Primary Care Provider [phone] Encounter Details Date Type Department Care Team (Late Contact Info) Description 07/11/2022 1:36 PM EST Hospital Encounter [facility] PULMONARY & CRITICAL CARE MEDICINE [address] [facility] [place] [address] Social History Tobacco Use Types Packs/Day Years [...] Description 06/26/2025 9:30 AM EST Procedure visit [facility] PULMONARY & CRITICAL CARE MEDICINE [address] [place] [address] 06/26/2025 10:00 AM EST Office Visit [facility] PULMONARY & CRITICAL CARE MEDICINE [address] [place] [address] Kaitlin Joiner, MANAGEMENT PROFESSIONAL [address] [place] [address] 09/12/2025 10:00 AM EST Office Visit [facility] CARDIOLOGY [address] [facility] [address] [place] [address] Jimmy Duncan MD 3000 [facility] [address] [place] [address] documented as of this encounter Procedures Procedure [...] by Edgardo Cash MD. Kaitlin L Rhys MANAGEMENT PROFESSIONAL IMG DIAGNOSTIC IMAGING ORDER JORDANA Final Result documented in this encounter Visit Diagnoses Not on filedocumented in this encounter Care Teams Manager Of Software Development Relationship Specialty Start Date End Date Marc Rodriguez MD [facility] [address] [place] [address] PCP - General Adolescent Medicine 12/08/16 documented as of this encounter
--- OUTSIDE RECORDS SUMMARY | 2022-08-27 09:46 | XMS_ITS | Encounter Summary ---
Author Organization [facility] Address [address] [place] [address] Care Team Providers Care Director Emergency Department Name Role Phone Marc Rodriguez MD Primary Care Provider [phone] Encounter Details Date Type Department Care Team (Late Contact Info) Description 08/27/2022 8:46 AM EST Hospital Encounter [facility] PULMONARY & CRITICAL CARE MEDICINE [address] [facility] [place] [address] Social History Tobacco Use Types Packs/Day Years [...] Description 06/26/2025 9:30 AM EST Procedure visit [facility] PULMONARY & CRITICAL CARE MEDICINE [address] [place] [address] 06/26/2025 10:00 AM EST Office Visit [facility] PULMONARY & CRITICAL CARE MEDICINE [address] [place] [address] Kaitlin Joiner, OXYGEN THERAPIST [address] [place] [address] 09/12/2025 10:00 AM EST Office Visit [facility] CARDIOLOGY [address] [facility] [address] [place] [address] Jimmy Duncan MD [address] [facility] [address] [place] [address] documented as of this encounter Procedures Procedure [...] Coleman 08/27/2022 1:30 PM EST Workstation ID: [id number] Narrative 08/27/2022 1:30 PM EST XR CHEST [...] Laogan 08/27/2022 1:30 PM EST Workstation ID: [id number] Kaitlin Joiner APRN IMG DIAGNOSTIC IMAGING ORDER JORADNA Final Result documented in this encounter Visit Diagnoses Not on filedocumented in this encounter Care Teams Director Emergency Department Relationship Specialty Start Date End Date Marc Rodriguez MD [facility] [address] [facility] [place] [address] PCP - General Adolescent Medicine 12/08/16 documented as of this encounter
--- OUTSIDE RECORDS SUMMARY | 2024-12-30 09:04 | XMS_ITS | Encounter Summary ---
Author Organization [facility] Address [address] [place] [address] Care Team Providers Care Roving Inspector Name Role Phone Marc Rodriguez MD Primary Care Provider [phone] Encounter Details Date Type Department Care Team (Late st Contact Info) Description 12/30/2024 9:04 AM EDT Hospital Encounter [facility] PULMONARY & [facility] MEDICINE [address] [facility] [place] [id number] Social History Tobacco Use Types Packs/Day Years [...] Description 06/26/2025 9:30 AM EST Procedure visit [facility] PULMONARY & [facility]IT[facility]ARE MEDICINE [address] [place] [address] 06/26/2025 10:00 AM EST Office Visit [facility] PULMONARY & CRITICAL [facility]ARE MEDICINE [address] [place] [address] Kaitlin Joiner, POT PRESS OPERATOR [address] [place] [address] 09/12/2025 10:00 AM EST Office Visit [facility] CARDIOLOGY [address] [facility] [address] [place] [id number] Jimmy Duncan MD [address] [facility] [address] [place] [address] documented as of this encounter Procedures Procedure [...] MD 12/30/2024 9:27 AM EDT Workstation ID: [id number] Narrative 12/30/2024 9:27 AM EDT XR CHEST [...] MD 12/30/2024 9:27 AM EDT Workstation ID: [id number] Kaitlin Joiner APRN IMG DIAGNOSTIC IMAGING ORDER JORDANA Final Result documented in this encounter Visit Diagnoses Not on filedocumented in this encounter Care Teams Roving Inspector Relationship Specialty Start Date End Date Macr Rodriguez MD [address] [facility] [address] [address] [facility] [address] PCP - General Adolescent Medicine 12/08/16 documented as of this encounter
--- OUTSIDE RECORDS SUMMARY | 2025-03-08 13:40 | XMS_ITS | Encounter Summary ---
Author Organization [facility] Address [address] [place] [address] Care Team Providers Care Electrician Third Name Role Phone Marc Rodriguez MD Primary Care Provider [phone] Edgardo Zuñiga MD Unavailable [phone] Giulia Briggs Unavailable [phone] Edgardo Zuñiga MD Unavailable [phone] Esther Mathew Unavailable [phone] Encounter Details Date Type Department Care Team (Late st Contact Info) Description 03/08/2025 1:40 PM EDT Office Visit [facility] [address] [place] [address] Edgardo Zuñiga MD [address] [place] [address] S/P lumbar fusion (Primary Dx) [...] place to sleep or slept in a long term (including now)? No 05/13/2024 PHQ-9 Answer Date [...] coordination of care. I spent >50% in hkww-ds-jwue communication with the patient over the diagnosis, treatment options and plan. Edgardo Zuñiga MD MS Hedis Manager of Neurosurgery Complex and Minimally Invasive Spine Surgery [facility] [address] [place], [address] documented in this encounter Plan of Treatment Upcoming Encounters Date Type Department Care Team (Late st Contact Info) Description 09/11/2025 11:50 AM EST Office Visit Physical Medicine & Rehabilitation Clinic at [facility] [address] [place] [address] Suzan Galindo, [address] [place] [address] 03/07/2026 9:20 AM EDT Office Visit [facility] Orthopaedic Surgery & Sports Medicine [address] [place] [address] Edgardo Zuñiga MD [address] [place] [address] documented as of this encounter [...] documented as of this encounter Care Teams Electrician Third Relationship Specialty Start Date End Date Marc Rodriguez MD [address] [place] [address] PCP - General 12/14/20 Edgardo Zuñiga MD [address] [place] [address] Surgeon Neurosurgery 03/04/21 Giulia Briggs PA [address] [place] [address] Physician Brick And Block Mason Neurosurgery 07/03/21 Edgardo Zuñiga MD [address] [place] [address] Surgeon Neurosurgery 09/16/21 Esther Mathew PA [address] [place] [address] Physician Brick And Block Mason Neurology 11/19/22 documented as of this encounter
--- OUTSIDE RECORDS SUMMARY | 2025-03-08 14:06 | XMS_ITS | Encounter Summary ---
Author Organization Healthcare Address [address] [place] [address] Care Team Providers Care Senior Product Integrity Engineer Name Role Phone Marc Rodriguez MD Primary Care Provider [phone] Edgardo Zuñiga MD Unavailable [phone] Giulia Briggs Unavailable [phone] Edgardo Zuñiga MD Unavailable [phone] Esther Mathew Unavailable [phone] Encounter Details Date Type Department Care Team (Latest Contact Info) Description 03/08/2025 2:06 PM EDT - 03/08/2025 11:59 PM EDT Hospital Encounter [place] [facility] [address] [place] [address] S/P lumbar fusion Discharge Disposition: Home or [...] the past 12 months has th e [employer], [employer], oil, or water [employer] threatened to shut off services in your home? No 05/13/2024 Comments No Sex and Gender Information Value Date Recorded Sex Assigned at Female 07/31/2021 6:10 AM EST Legal Sex Female 8:40 PM EDT Gender Identity Female 07/31/2021 6:10 AM EST Sexual Orientation Not on file documented as of this encounter Medications at [...] every 6 (six) months. Due May 2024 donepezil (Aricept) 23 MG tablet Take 1 tablet by mouth once daily 30 tablet 1 03/01/2025 DULoxetine (Cymbalta) [address] capsule Take 1 capsule (60 mg) by mouth 2 (two) times a day. Fluticasone Furoate-Vilantero l 100-25 MCG/ACT aerosol powder Inhale 1 puff Daily. galcanezumab-gnlm (Emgality) 120 MG/ML injection Inject 1 Syringe (120 mg) under the skin every 30 (thirty) days. 1 each 07/19/2024 hydrocortisone (Cortef) 5 MG tablet Take 1 [...] if needed (Severe muscle spasm). 03/27/2024 5 Dupilumab (Dupixent) 300 MG/2ML solution auto-injector sodium bicarbonate 650 MG tablet Take 1 tablet (650 mg) by mouth nightly. documented as of this encounter Plan of Treatment Upcoming Encounters Date Type Department Care Team (Late st Contact Info) Description 09/11/2025 11:50 AM EST Office Visit [facility] at [facility] [address] [place] [address] Suzan Galindo DO [address] [place] [address] 03/07/2026 9:20 AM EDT Office Visit [facility] Orthopaedic Surgery & Sports Medicine [address] [place] [address] Edgardo Zuñiga MD [address] [place] [address] documented as of this encounter [...] as of this encounter Care Teams Senior Product Integrity Engineer Relationship Specialty Start Date End Date Marc Rodriguez MD [address] [place] [address] PCP - General 12/14/20 Edgardo Zuñiga MD [address] [place] [address] Surgeon Neurosurgery 03/04/21 Giulia Briggs PA [address] [place] [address] Physician Laundry Agent Neurosurgery 07/03/21 Edgardo Zuñiga MD [address] [place] [address] Surgeon Neurosurgery 09/16/21 Esther Mathew PA [address] [place] [address] Physician Laundry Agent Neurology 11/19/22 documented as of this encounter
--- OUTSIDE RECORDS SUMMARY | 2025-03-09 13:20 | XMS_ITS | Encounter Summary ---
Author Organization Healthcare Address [address] [place] [address] Care Team Providers Care Sales Broker Name Role Phone Marc Rodriguez MD Primary Care Provider [phone] Edgardo Zuñiga MD Unavailable [phone] Giulia Briggs PA Unavailable [phone] Edgardo Zuñiga MD Unavailable [phone] Esther Mathew Unavailable [phone] Reason for Visit * Reason Comments Follow-up Encounter Details Date Type Department Care Team (Late st Contact Info) Description 03/09/2025 1:20 PM EDT Office Visit Physical Medicine & Rehabilitation Clinic at [facility] [address] [place] [address] Suzan Galindo DO [address] [facility] [address] [place] [address] High risk medication use (Primary Dx); Total self-care deficit; Impaired cognition; Cervical cord compression with myelopathy (CMS/HCC) Social History Tobacco Use Types Packs/Day Years Used Date Smoking Tobacco: Never Smokeless Tobacco: Never Tobacco Cessation:Counseling Given: Not Answered Alcohol Use Standard Drinks/Week Comments Never 0 [...] place to sleep or slept in a fdc (including now)? No 05/13/2024 PHQ-9 Answer Date [...] Sign Reading Time Taken Comments Blood Pressure 152/84 03/09/2025 1:22 PM EDT Pulse 63 03/09/2025 1:22 PM EDT Temperature - - Respiratory Rate - - Oxygen Saturation 97% 03/09/2025 1:22 PM EDT Inhaled Oxygen Concentration - - Weight 78 kg (171 lb 15.3 oz) 03/09/2025 1:22 PM EDT Height 170.2 cm (5' 7 ) 03/09/2025 1:22 PM EDT Body Mass Index 26.93 03/09/2025 1:22 PM EDT documented in this encounter Functional [...] as of this encounter Miscellaneous Notes * Progress Notes - Suzan Galindo DO - 03/09/2025 1:20 PM EDT Images from the original note were not included. PHYSICAL MEDICINE AND REHABILITATION OUTPATIENT CLINIC NOTE Chief Complaint: muscles spasms that are bothersome, incomplete paraplegia with superimposed LUE weakness and ataxia and BLE spasticity. Background History: Sandie Frank is a 69 y.o. year old female with a history of HLD, hypothyroidism, obesity, asthma, chronic neck and back pain s/p multiple surgeries with most surgery (L3-5 TLIF on 03/18/24). Post operatively pt noted to have L facial droop, cognitive deficits and LUE weakness which was felt to be a TIA. Pt then transitioned to [facility] for inpatient rehab with then dc to home in april. 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 Interval history: Patient returns clinic today accompanied by her . Last seen in clinic in December 2024 at which time patient was continued on baclofen & dantrolene for continued spasticity & intermittent painful spasms. She notes slow steady improvements. Has had further adjustments to her pain/baclofen pump which have been helping but still having spasms. Has not had labs in months. Also continues with therapy two days a week locally. Does some standing and walks a few steps but still WC reliant. Unclear of refills needs. Do also report issues with abdominal pain and constipation and has been seenby GI recently with no new problems noted. They note that her pump dosing was adjusted down so spasms are worse but pain is stable. Taking baclofen 5 mg bid typically as well along with the dantrolene 100 mg qid. Details of past medical history, surgical history, [...] (Lioresal) 10 MG tablet, Take 1 tablet by mouth 4 times a day., Disp: 120 tablet, Rfl: 3 busPIRone (Buspar) 5 MG tablet, Take 1 tablet by mouth 3 times a day., Disp: 90 tablet, Rfl: 3 calcium carbonate (Tums) 500 MG chewable tablet, Chew 1 tablet (500 mg) daily., Disp: , Rfl: dantrolene (Dantrium) 50 MG capsule, Take 2 capsules by mouth 4 times a day., Disp: 240 capsule, Rfl: 3 denosumab (Prolia) 60 MG/ML injection, Inject 1 mL (60 mg) under the skin every 6 (six) months. DueOctober 2023, Disp: , Rfl: donepezil (Aricept) 23 MG tablet, Take 1 tablet by mouth once daily, Disp: 30 tablet, Rfl: 1 DULoxetine (Cymbalta) [address] capsule, Take [...] , Rfl: ubrogepant (Ubrelvy) 100 MG tablet, TAKE 1 TABLET BY MOUTH ONE TIME NEEDED FOR MIGRAINE. AFTER 2HOURS, A SECOND DOSE MAY BE TAKEN IF NEEDED. MAX 200MG IN 24 HOURS, Disp: 10 each, Rfl: 3 diazePAM (Valium) 2 MG tablet, Take 1 tablet (2 mg) by mouth every 6 (six) hours if needed (Severe muscle spasm). (Patient not taking: Reported on 03/08/2025), Disp: , Rfl: Dupilumab (Dupixent) 300 MG/2ML solution auto-injector, , Disp: , Rfl: oxyCODONE (Roxicodone) 10 MG immediate release tablet, Take 1 tablet (10 mg) by mouth every 4 (four) hours if needed for severe pain. (Patient not taking: Reported on 03/08/2025), Disp: , Rfl: sodium bicarbonate 650 MG tablet, Take 1 tablet (650 mg) by mouth nightly. (Patient not taking: Reported on 03/08/2025), Disp: , Rfl: ROS: 14 point ROS negative except for above. Physical Examination: 09/06/2024 9:58 AM 09/21/2024 11:49 AM 09/26/2024 12:11 PM 2024 2:14 PM 12/07/2024 12:47 PM 03/08/2025 2:00 PM 03/09/2025 1:22 PM Vitals Systolic 126 131 136 122 124 146 152 Diastolic 70 74 68 68 73 74 84 Heart Rate 63 71 65 77 55 63 Temp 36.8 C Resp 16 16 Height (cm) 170.2 cm 170.2 cm 170.2 cm 170.2 cm 170.2 cm 170.2 cm 170.2 cm Weight (kg) 92.534 kg 92.534 kg 95.255 kg 95.255 kg 88 kg 86.183 kg 78 kg BMI 31.95 kg/m2 31.95 kg/m2 32.89 kg/m2 32.89 kg/m2 30.39 kg/m2 29.76 kg/m2 26.93 kg/m2 BSA (m2) 2.09 m2 2.09 m2 2.12 m2 2.12 m2 2.04 m2 2.02 m2 1.92 m2 Visit Report Report Report Report Report Report Report General Apperance: Awake, well groomed, in no acute distress, sitting in [facility] Ear, Nose, Mouth and Throat: Atraumatic, normocephalic, [...] Data: Reviewed programming medtronic pump sheet from 03/03/25 with hydromorphone at 20 mg/ml and baclofen at 750 mcg/ml from 600 mcg/ml in her pump with 8.796 mg/day of hydromorphone and 329.86 mcg/day of baclofen. Apparently dosing of hydromorphone was decreased due to recent abdominal issues which persists. Assessment: Sandie Frank is a 69 y.o. female with history of HLD, hypothyroidism, obesity, asthma, chronic neck and back pain s/p multiple surgeries (L3-5 TLIF on 03/18/24) complicated by LUE weakness, facial droop, spasticity and cervical cord changes with functional decline as well as CPS with dilaudid IT pump with now mixed with baclofenpresenting for follow up Plan: Romeo reviewed and appropriate. Pt in need of labs ASHLEY due to dantrolene use, if LFTs abnormal will need to reduce dantrolene dosing. Suggest she speak with Dr. Kidd to increase baclofen dosing to 850 mcg/ml with next refill to help with her spasticity to hopefully be able to wean off oral baclofen and her dantrolene over time. Refill Baclofen 5mg bid for now Refill dantrolene 100 mg qid for now but subject to change based on labs. Continue with PT and OT and discussed need for continued HEP for hip strengthening RTC 6 months. No follow-ups on file. Electronically Signed by: Suzan Sanchez DO - 03/09/2025 - 1:41 PM documented in this encounter Plan of Treatment Upcoming Encounters Date Type Department Care Team (Late st Contact Info) Description 09/11/2025 11:50 AM EST Office Visit Physical Medicine & Rehabilitation Clinic at [facility] [address] [place] [address] Suzan Galindo, [address] [place] [address] 03/07/2026 9:20 AM EDT Office Visit [facility] Orthopaedic Surgery & Sports Medicine [address] [place] [address] Edgardo Zuñiga MD [address] [place] [address] documented as of this encounter Results * (ABNORMAL) Comprehensive metabolic panel (03/09/2025 2:40 PM EDT) Glucose, Plasma 91 74 - 99 mg/dL 03/09/2025 5:10 PM EDT [facility] BUN, Plasma 14 8 - 23 mg/dL 03/09/2025 5:10 PM EDT [facility] Creatinine, Plasma 0.73 0.60 - 1.10 mg/dL 03/09/2025 5:10 PM EDT [facility] BUN/Creatinine Ratio 19 03/09/2025 5:10 PM EDT [facility] Sodium, Plasma 144 136 - 145 mmol/L 03/09/2025 5:10 PM EDT [facility] Potassium, Plasma 5.1(H) 3.6 - 4.9 mmol/L 03/09/2025 5:10 PM EDT [facility] Chloride, Plasma 106 97 - 107 mmol/L 03/09/2025 5:10 PM EDT [facility] CO2, Plasma 28 22 - 29 mmol/L 03/09/2025 5:10 PM EDT [facility] Anion Gap 10 6 - 16 mmol/L 03/09/2025 5:10 PM EDT [facility] Total Calcium, Plasma 9.8 8.9 - 10.2 mg/dL 03/09/2025 5:10 PM EDT [facility] Total Protein 6.6 6.3 - 7.9 g/dL 03/09/2025 5:10 PM EDT [facility] Albumin, Plasma 3.8 3.5 - 5.2 g/dL 03/09/2025 5:10 PM EDT [facility] AST, Plasma 77(H) 10 - 35 U/L 03/09/2025 5:10 PM EDT [facility] ALT, Plasma 38(H) 10 - 35 U/L 03/09/2025 5:10 PM EDT [facility] Alkaline Phosphatase, Plasma 140 46 - 142 U/L 03/09/2025 5:10 PM EDT [facility] Total Bilirubin, Plasma 0.7 0.2 - 1.1 mg/dL 03/09/2025 5:10 PM EDT [facility] eGFRcr 88.0 mL/min/1.7 3m*2 03/09/2025 5:10 PM EDT [facility] Comment:Reported eGFRcr in m L/min/1.73m2 is based the CKD-EPI 2020 equation that does not use a race coefficient. Blood Venous blood specimen / Unknown Venipuncture / Unknown 03/09/2025 2:40 PM EDT 03/09/2025 2:40 PM EDT Suzan Sanhcez DO LAB BLOOD ORDERABLES Final Result [facility] [address] [place] [address] documented in this encounter Visit Diagnoses Diagnosis High risk medication use- Primary Total self-care deficit Impaired cognition Unspecified persistent mental disorders due to conditions classified elsewhere Cervical cord compression with myelopathy (CMS/HCC) Unspecified disease of spinal cord documented in this encounter Additional Health Concerns Assessment Noted Time PHQ-9 Depression Total Score: 0 07/05/20 24 10:01 AM EST A fall risk assessment has been complete d for the patient 03/09/2025 1:24 PM EDT A Body Mass Index follow-up plan has been documented for the patient 03/12/2025 3:04 PM EDT documented as of this encounter Care Teams Sales Broker Relationship Specialty Start Date End Date Marc Rodriguez MD [address] [place] [address] PCP - General 12/14/20 Edgardo Zuñiga MD [address] [place] [address] Surgeon Neurosurgery 03/04/21 Giulia Briggs PA [address] [place] [address] Physician Custom Designer Neurosurgery 07/03/21 Edgardo Zuñiga MD [address] [place] [address] Surgeon Neurosurgery 09/16/21 Esther Mathew PA [address] [place] [address] Physician Custom Designer Neurology 11/19/22 documented as of this encounter
--- OUTSIDE RECORDS SUMMARY | 2025-03-13 09:45 | XMS_ITS | Encounter Summary ---
[facility] Address [address] [place] [address] Care Team Providers Care Director Business Travel Name Role Phone Marc Rodriguez MD Primary Care Provider [phone] Reason for Visit * Reason Comments Hypertension Hyperlipidemia Encounter Details Date Type Department Care Team (Latest Contact Info) Description 03/13/2025 9:45 AM EDT Office Visit [facility]Y [address] [facility] [address] [place] [phone] Jimmy Duncan MD [address] [facility] [address] [phone] Primary hypertension (Primary Dx); Hyperlipidemia LDL goal [...] reassessed in 6 months. Discussed with patient [employer] [employer] and [place] [employer] provide detailed guidelines for accurate [...] PCP: Marc Rodriguez MD Date: 03/13/2025 Department: [facility] CARDIOLOGY [address] [facility] [address] [facility] [address] Chief Complaint Patient presents with Hypertension Hyperlipidemia [...] Procedure Laterality Date APPENDECTOMY 1973 BREAST BIOPSY [id number] multiple CARDIAC CATHETERIZATION 03/13/2009 AE @ [facility]- [...] reassessed in 6 months. Discussed with patient [employer] [employer] and [employer] [employer] provide detailed guidelines for accurate [...] any significant symptoms or go to the [facility] Emergency room if possible. Jimmy Duncan MD, [facility]. [place] [facility] Part of this note may be an electronic hot dimpling machine operator/translation of spoken language to printed textusing the Truly Wirelessation System. documented in this encounter Plan of Treatment Upcoming Encounters Date Type Department Care Team (Late st Contact Info) Description 06/26/2025 9:30 AM EST Procedure visit [facility] PULMONARY & CRITICAL CARE MEDICINE [address] [place] [address] 06/26/2025 10:00 AM EST Office Visit [facility] PULMONARY & CRITICAL CARE MEDICINE [address] [place] [address] Kaitlin Joiner, TORI [address] [place] [address] 09/12/2025 10:00 AM EST Office Visit [facility] CARDIOLOGY [address] [facility] [address] [place] [phone] Jimmy Duncan MD [address] [facility] [address] [place] [address] Scheduled Orders Name Type Priority Associated Diagnoses [...] PCP: Marc Rodriguez MD Date: 03/13/2025 Department: [facility] C[facility]IOLOGY [address] [facility] [address] [facility] [address] Chief Complaint Patient presents with Hypertension Hyperlipidemia [...] Procedure Laterality Date APPENDECTOMY 1973 BREAST BIOPSY [id number] multiple CARDIAC CATHETERIZATION 03/13/2009 AE @ [facility]- [...] reassessed in 6 months. Discussed with patient [employer] [employer] and [place] Heart[employer] provide detailed guidelines for accurate blood [...] any significant symptoms or go to the [facility] Emergencyroom if possible. Jimmy Duncan MD, [facility]. [place] [facility] Part of this note may be an electronic hot dimpling machine operator/translation of spokenlanguage to printed text using the Truly Wirelessation System. us Jimmy Duncan MD ECG ORDERABLES Final Result documented in this encounter Visit Diagnoses Diagnosis Primary hypertension- Primary Unspecified essential hypertension Hyperlipidemia LDL goal <100 Other and unspecified hyperlipidemia Chronic venous insufficiency of lower extremity documented in this encounter Care Teams Director Business Travel Relationship Specialty Start Date End Date Marc Rodriguez MD [address] [facility] [address] [place] [address] PCP - General Adolescent Medicine 12/08/16 documented as of this encounter
[2025-03-14 10:55] VITALS: BP 109/63; PULSE 57; RESP 18; TEMP 36.4; O2SAT 100
[2025-03-14] MEDS: DENOSUMAB 60 MG/ML SYRINGE SUBCUT (10:55)
--- OUTSIDE RECORDS SUMMARY | 2025-03-14 10:56 | XMS_ITS | Encounter Summary ---
Author Organization [employer] ([place], [place], [place], [place]) Address [address] [place] [address] Care Team Providers Care Margarine Maker Name Role Phone Unavailable Primary Care Provider Unavailabl e Encounter Details Date Type Department Care Team (Late st Contact Info) Description 07/25/2019 Transcribed Document [facility] Family Medicine [address] [place] [address] ProviderSonia MD [address] [place], [place] [id number] Social History Tobacco Use Types Packs/Day Years Used Date Smoking Tobacco: Never Assessed Comments Unknown Sex and Gender Information Value Date Recorded Sex Assigned at Not on file Legal Sex Female 1:42 PM CDT Gender Identity Not on file Sexual Orientation Not on file documented as of this encounter Miscellaneous Notes * [employer] Conversion Note - Historical ProviderMD - 07/25/2019 2:00 AM ELECTRONICS MECHANIC Copy Operator Details Entered On: 07/25/2019 2:08 EST Performed [...]
--- OUTSIDE RECORDS SUMMARY | 2025-03-14 10:56 | XMS_ITS | Encounter Summary ---
Author Organization Drive ([place], [place], [place], [place]) Address [address] [place] [address] Care Team Providers Care Poultry Inseminator Name Role Phone Unavailable Primary Care Provider Unavailabl e Encounter Details Date Type Department Care Team (Late st Contact Info) Description 07/25/2019 Transcribed Document [facility] Family Medicine [address] [place] [address] ProviderSonia MD [address] [place] [address] Social History Tobacco Use Types Packs/Day Years Used Date Smoking Tobacco: Never Assessed Comments Unknown Sex and Gender Information Value Date Recorded Sex Assigned at Not on file Legal Sex Female 1:42 PM CDT Gender Identity Not on file Sexual Orientation Not on file documented as of this encounter Miscellaneous Notes * Cerner Conversion Note - Sonia ProviderMD - 07/25/2019 4:49 PM CIVIL ENGINEER IN TRAINING Spiritual Care Short Form Entered On: 07/25/2019 22:21 EST Performed On: 07/25/2019 16:49 EST by Eligio Medina Chaplain-Loida Rene General Information, Spiritual Care Spiritual Care Referred by : follow-up Reason for Visit : Follow Up Ministry Provided to : Patient, Family/Significant other Intervention/Comment/Summary Points : Provided prayer with patient and pt's upon their request. Eligio Medina Chaplain-Non Anju - 07/25/2019 22:20 EST Electronically signed by Raman [facility] Conversion Security Escort Cerner at 11/19/2022 8:37 PM CDT documented in this encounter Plan of Treatment Not on file documented as of this encounter Visit Diagnoses Not on filedocumented in this encounter
--- OUTSIDE RECORDS SUMMARY | 2025-03-14 10:56 | XMS_ITS | Encounter Summary ---
Author Organization [employer] ([place], [place], [place], [place]) Address [address] [place] [address] Care Team Providers Care Truck Driver Teamster Name Role Phone Unavailable Primary Care Provider Unavailabl e Encounter Details Date Type Department Care Team (Late st Contact Info) Description 07/24/2019 Transcribed Document [facility] [address] [place] [address] ProviderSonia MD [address] [place], [place] [address] Social History Tobacco Use Types Packs/Day Years Used Date Smoking Tobacco: Never Assessed Comments Unknown Sex and Gender Information Value Date Recorded Sex Assigned at Not on file Legal Sex Female 1:42 PM CDT Gender Identity Not on file Sexual Orientation Not on file documented as of this encounter Miscellaneous Notes * [employer]ner Conversion Note - Historical ProviderMD - 07/24/2019 2:00 AM ENAMEL DIPPER Warehouse Shipping Associate Details Entered On: 07/24/2019 2:22 EST Performed [...] 07/24/2019 2:21 EST Electronically signed by Raman [facility] Conversion Lastex Operator Cerner at 11/19/2022 8:28 PM CDT documented in this encounter Plan of Treatment Not on file documented as of this encounter Visit Diagnoses Not on filedocumented in this encounter
--- OUTSIDE RECORDS SUMMARY | 2025-03-14 10:56 | XMS_ITS | Encounter Summary ---
Author Organization [employer] ([place], [place], [place], [place]) Address [address] [place] [address] Care Team Providers Care Pressurization Mechanic Name Role Phone Unavailable Primary Care Provider Unavailabl e Encounter Details Date Type Department Care Team (Late st Contact Info) Description 07/25/2019 Transcribed Document [facility] [place] Family Medicine [facility] [place] [address] ProviderSonia MD [facility] [place], [place] [address] Social History Tobacco Use Types Packs/Day Years Used Date Smoking Tobacco: Never Assessed Comments Unknown Sex and Gender Information Value Date Recorded Sex Assigned at Not on file Legal Sex Female 1:42 PM CDT Gender Identity Not on file Sexual Orientation Not on file documented as of this encounter Miscellaneous Notes * Cerner Conversion Note - Sonia ProviderMD - 07/25/2019 3:14 PM SENIOR ANALYTICAL CHEMIST On Going Discharge Planning Entered On: 07/25/2019 15:17 EST Performed On: 07/25/2019 15:14 EST by NICHOLAS HOGUE, RN-Policy AdvisorWindows Server Architect Progress Note Discharge Arrangements : Patient Post-Acute Information Patient Name: SANDIE FRANK Gender: Female : 51 Age: 63 Years No Post-Acute Placement(s) Listed No Post-Acute Service(s) Listed No Curaspan Referral(s) Listed Discharge Options Discussed with Patient : Short term rehabilitation NICHOLAS HOGUE, RN-Policy Advisor - 07/25/2019 15:24 EST Narrative Progress Note Narrative Progress Note : JAS sent text to Catalina with [facility] this am requesting update on bed availability. She has the pt being reviewed by their physician. CM set ambulance tentatively for tomorrow at 1400. Awaiting word from [facility]. CM updated pt and family. Historical Progress Note : 07/24 met with mrs Frank and she is awake and les shaky today... States she wants to go to rehab for getting strength and balance .. Await [facility] ady ,, She 's had her 3 Midnight stay in hospital .... LAMBERT Stelee, RN-Policy Advisor - 07/24/19 15:20:00 NICHOLAS HOGUE, RN-Policy Advisor - 07/25/2019 15:24 EST Electronically signed by Raman [facility] Conversion Accounting Machine Mechanic Cerner at 11/19/2022 8:37 PM CDT documented in this encounter Plan of Treatment Not on file documented as of this encounter Visit Diagnoses Not on filedocumented in this encounter
--- OUTSIDE RECORDS SUMMARY | 2025-03-14 10:56 | XMS_ITS | Encounter Summary ---
Author Organization [employer] ([place], [place], [place]) Address [address] [place] [address] Care Team Providers Care Repairer Handtools Name Role Phone Unavailable Primary Care Provider Unavailabl e Encounter Details Date Type Department Care Team (Late st Contact Info) Description 07/25/2019 Transcribed Document [facility] Radiology [address] [place] [address] Travis Schwartz MD [address] [place], [place] [id number] Social History Tobacco Use Types Packs/Day Years [...] Order- Vancomycin 1,500 Mg IV X 1 CDS/Sprinkler Truck Driver Signature: Krystyna Gonzalez RN Phone #: [phone] This is a permanent part of the Medical Record Q54 2019 [facility] Updated: documented in this encounter Plan of Treatment Not on file documented as of this encounter Visit Diagnoses Not on filedocumented in this encounter
--- OUTSIDE RECORDS SUMMARY | 2025-03-14 10:56 | XMS_ITS | Encounter Summary ---
Author Organization [employer] ([place], [place], [place]) Address [address] [place] [address] Care Team Providers Care Sales Outfitter Name Role Phone Unavailable Primary Care Provider Unavailabl e Encounter Details Date Type Department Care Team (Late st Contact Info) Description 07/25/2019 Transcribed Document [facility] Family Medicine [address] [place] [address] ProviderSonia MD [address] [place], [place] [address] Social History Tobacco Use Types Packs/Day Years Used Date Smoking Tobacco: Never Assessed Comments Unknown Sex and Gender Information Value Date Recorded Sex Assigned at Not on file Legal Sex Female 1:42 PM CDT Gender Identity Not on file Sexual Orientation Not on file documented as of this encounter Miscellaneous Notes * Cerner Conversion Note - Sonia ProviderMD - 07/25/2019 5:00 PM BARGEMAN Chart Check - Review Order Profile Entered On: 07/25/2019 16:29 EST Performed On: 07/25/2019 17:00 EST by Aimee Willis RN Chart Check Powerplans Initiated/Discontinued as Appropriate : Yes All Active Orders Reviewed : Yes Aimee Willis RN - 07/25/2019 16:29 EST Electronically signed by Raman [facility] Conversion Cue Selector Cerner at 11/19/2022 8:46 PM CDT documented in this encounter Plan of Treatment Not on file documented as of this encounter Visit Diagnoses Not on filedocumented in this encounter
--- OUTSIDE RECORDS SUMMARY | 2025-03-14 10:56 | XMS_ITS | Encounter Summary ---
Author Organization [employer] ([place], [place], [place]) Address [address] [place] [address] Care Team Providers Care Provider Relations Representative Name Role Phone Unavailable Primary Care Provider Unavailabl e Encounter Details Date Type Department Care Team (Late st Contact Info) Description 07/25/2019 Transcribed Document [facility] Radiology 1 [place] [address] Travis Robles MD [address] [place], [place] [id number] Social History Tobacco Use Types Packs/Day Years [...] with physical therapy with the , nurse, behavioral health case manager all the bedside. She look like she is about to fallout ofthe bed. The patient's was asking about taking her home. He wanted to know if Dr. Patrick Knutson M.D. with orthopedic surgery actually goes to see patients at the [facility] That he does not go to the [place] although 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 Physical therapy strongly agreed that he needs to go to inpatient rehabilitation either [facility] are at the [place]. No fevers or chills. No nausea vomiting. [...] facility facility. Patient's nurse and the patient's behavioral health case manager who saw her upstairs saw her [...] list: Medical Adrenal insufficiency / SNOMED CT 3711041556 / Confirmed Aortic valve stenosis / SNOMED CT 561340447 / Confirmed Arthritis / SNOMED CT 9978147 / Confirmed Asthma / SNOMED CT 404666066 / Confirmed At risk for sleep apnea / IMO 76631665 / Confirmed Cataracts, both eyes / SNOMED CT 369820085 / Confirmed chronic back pain / SNOMED CT 555778056 / Confirmed chronic diarrhea / SNOMED CT 594731792 / Confirmed Chronic kidney disease / SNOMED CT 6725419042 / Confirmed B12 deficiency / SNOMED CT 932748275 / Confirmed Dementia / SNOMED CT 80366155 / Confirmed depression / SNOMED CT 41602242 / Confirmed uses Renexa / SNOMED CT 6053334 / Confirmed chronic hydrocort use / SNOMED CT 6348724 / Confirmed peripheral neuropathy / SNOMED CT 01147318 / Confirmed GERD / SNOMED CT 061122925 / Confirmed fibromyalgia / SNOMED CT 50121797 / Confirmed Glaucoma / SNOMED CT 03846582 / Confirmed migraine headaches / SNOMED CT 826945464 / Confirmed hx cataract surgery bilateral / SNOMED CT 5592757559 / Confirmed hx. chest pain / SNOMED CT 6811925055 / Confirmed hx colon resection secondary decreased function / SNOMED CT 6475479989 / Confirmed hx. frequent UTIs / SNOMED CT 0967442933 / Confirmed high cholesterol / SNOMED CT 15874532 / Confirmed high blood pressure / SNOMED CT 4600688679 / Confirmed Hypothyroidism / SNOMED CT 87903890 / Confirmed kidney stone right kidney current and hx / SNOMED CT 944292836 / Confirmed Osteoporosis / SNOMED CT 435947213 / Confirmed Pneumonia / SNOMED CT 115880103 / Confirmed restless leg syndrome / SNOMED CT 29409775 / Confirmed rheumatoid arthritis / SNOMED CT 407154312 / Confirmed Seasonal allergies / SNOMED CT 1229568986 / Confirmed Vitamin D deficiency / SNOMED CT 33606462 / Confirmed Resolved: Hypotension / SNOMED CT 89596500 Canceled: adrenal insufficiency / SNOMED CT 4871107322 Canceled: Hyperthyroidism / SNOMED CT [id number], Active Problems (33) Adrenal insufficiency Aortic valve [...] azelastine 137 mcg/inh (0.1%) nasal spray: 2 [place], Nasal, BID, PRN: Allergies budesonide: 0.5 mg, [...] intl units oral capsule: 1 Cap, Oral, [id number], 0 Refill(s) Dilaudid: pain pump, 0 Refill(s) Flax Seed Oil: 1,200 mg, Oral, BID, 0 Refill(s) Flonase: 1 [place], Nostrils Both, BID Lunesta: 3 mg, Oral, [...] 205.5 mcg/inh (0.15%) nasal spray: 2 [place], Nasal, BID, PRN: for allergy symptoms, 0 [...] 205.5 mcg/inh (0.15%) nasal spray 2 [place], PRN, Nasal, BID biotin 5 mg, Oral, [...] 50,000 Int Units = 1 Cap, Oral, [id number] Dilaudid donepezil 23 mg, Oral, Daily famotidine 40 mg, Oral, BID Flax Seed Oil 1,200 mg, Oral, BID Flonase 1 [place], Nostrils Both, BID gabapentin 100 mg oral [...] azelastine 137 mcg/spray nasal 30 mL 2 [place], Nasal, BID bisacodyl 10 mg supp 10 [...] is obese and debilitated, her , nurse, behavioral health case manager THE bedside. The really voiced [...] the afternoon. The patient's nurse and her behavioral health case manager who saw her yesterday at the [...] any more bleeding or significant blood loss. [employer] dictation system used. Computer program makes numerous spelling grammar mistakes. If you have any questions or concerns do not hesitate call Dr. Travis uLx at cell phone number [phone]. documented in this encounter Plan of Treatment Not on file documented as of this encounter Visit Diagnoses Not on filedocumented in this encounter
--- OUTSIDE RECORDS SUMMARY | 2025-03-14 10:56 | XMS_ITS | Encounter Summary ---
Author Organization [employer] ([place], [place], [place], [place]) Address [address] [place] [address] Care Team Providers Care Customer Service Receptionist Name Role Phone Unavailable Primary Care Provider Unavailabl e Encounter Details Date Type Department Care Team (Late st Contact Info) Description 07/25/2019 Transcribed Document [facility] Family Medicine [address] [place] [address] ProviderSonia MD [address] [place], [place] [address] Social History Tobacco Use Types Packs/Day Years Used Date Smoking Tobacco: Never Assessed Comments Unknown Sex and Gender Information Value Date Recorded Sex Assigned at Not on file Legal Sex Female 1:42 PM CDT Gender Identity Not on file Sexual Orientation Not on file documented as of this encounter Miscellaneous Notes * Cerner Conversion Note - Sonia ProviderMD - 07/25/2019 5:00 AM HVAC OPERATIONS TECHNICIAN Chart Check - Review Order Profile Entered On: 07/25/2019 5:19 EST Performed On: 07/25/2019 5:00 EST by Barrington Roberts RN Chart Check Powerplans Initiated/Discontinued as Appropriate : Yes All Active Orders Reviewed : Yes Barrington Roberts RN - 07/25/2019 5:19 EST Electronically signed by Raman [facility] Conversion Bleacher [employer] Cerner at 11/19/2022 8:47 PM CDT documented in this encounter Plan of Treatment Not on file documented as of this encounter Visit Diagnoses Not on filedocumented in this encounter
--- OUTSIDE RECORDS SUMMARY | 2025-03-14 10:56 | XMS_ITS | Encounter Summary ---
Author Organization [employer] ([place], [place], [place], [place]) Address [address] [place] [address] Care Team Providers Care Case Investigator Name Role Phone Unavailable Primary Care Provider Unavailabl e Encounter Details Date Type Department Care Team (Late st Contact Info) Description 07/24/2019 Transcribed Document [facility] [place] [facility] [place] [address] ProviderSonia MD [address] [place], [place] [address] Social History Tobacco Use Types Packs/Day Years Used Date Smoking Tobacco: Never Assessed Comments Unknown Sex and Gender Information Value Date Recorded Sex Assigned at Not on file Legal Sex Female 1:42 PM CDT Gender Identity Not on file Sexual Orientation Not on file documented as of this encounter Miscellaneous Notes * Cerner Conversion Note - Sonia ProviderMD - 07/24/2019 3:17 PM TURKEY PINNER On Going Discharge Planning Entered On: 07/24/2019 15:20 EST Performed On: 07/24/2019 15:17 EST by LAMBERT HERNANDEZ, RN-Waiter/Waitress InformalSprinkler Irrigation Equipment Mechanic Progress Note Discharge Arrangements : Patient Post-Acute Information Patient Name: SANDIE FRANK Gender: Female : 51 Age: 63 Years No Post-Acute Placement(s) Listed No Post-Acute Service(s) Listed No Curaspan Referral(s) Listed Discharge Options Discussed with Patient : DME, Home Health, Short term rehabilitation LAMBERT HERNANDEZ, RN-Waiter/Waitress Informal - 07/24/2019 15:17 EST Narrative Progress Note Narrative Progress Note : 07/24 met with mrs Frank and she is awake and les shaky today... States she wants to go to rehab for getting strength and balance .. Await [facility] g[facility]ia ,, She 's had her 3 Midnight stay in hospital .... LAMBERT Steele, RN-Waiter/Waitress Informal - 07/24/2019 15:17 EST Electronically signed by [facility] Conversion Performance Consultant Cerner at 11/19/2022 8:25 PM CDT documented in this encounter Plan of Treatment Not on file documented as of this encounter Visit Diagnoses Not on filedocumented in this encounter
--- OUTSIDE RECORDS SUMMARY | 2025-03-14 10:56 | XMS_ITS | Encounter Summary ---
Author Organization [employer] ([place], [place], [place], [place]) Address [address] [place] [address] Care Team Providers Care Wide Piece Goods Inspector Name Role Phone Unavailable Primary Care Provider Unavailabl e Encounter Details Date Type Department Care Team (Late st Contact Info) Description 07/24/2019 Transcribed Document [facility] [place] [address] ProviderSonia MD [address] [place] [id number] Social History Tobacco Use Types Packs/Day Years Used Date Smoking Tobacco: Never Assessed Comments Unknown Sex and Gender Information Value Date Recorded Sex Assigned at Not on file Legal Sex Female 1:42 PM CDT Gender Identity Not on file Sexual Orientation Not on file documented as of this encounter Miscellaneous Notes * Cerner Conversion Note - Sonia ProviderMD - 07/24/2019 8:49 AM PUTAWAY DRIVER Patient: SANDIE FRANK Age: 63 Years [...] azelastine 137 mcg/inh (0.1%) nasal spray, 2 [place], Nasal, BID, PRN Benadryl, 25 mg= 1 [...] No 07/24/2019 03:41 EST Electronically signed by [facility] Conversion Sewage Plant Supervisor Cerner at 11/19/2022 8:35 PM CDT documented in this encounter Plan of Treatment Not on file documented as of this encounter Visit Diagnoses Not on filedocumented in this encounter
--- OUTSIDE RECORDS SUMMARY | 2025-03-14 10:56 | XMS_ITS | Encounter Summary ---
Author Organization [employer] ([place], [place], [place]) Address [address] [place] [address] Care Team Providers Care Environmental Quality Analyst Name Role Phone Unavailable Primary Care Provider Unavailabl e Encounter Details Date Type Department Care Team (Late st Contact Info) Description 07/25/[address] [facility] [place] [facility] [place] [address] ProviderSonia MD [facility] [place], [place] [address] Social History Tobacco Use Types Packs/Day Years Used Date Smoking Tobacco: Never Assessed Comments Unknown Sex and Gender Information Value Date Recorded Sex Assigned at Not on file Legal Sex Female 1:42 PM CDT Gender Identity Not on file Sexual Orientation Not on file documented as of this encounter Miscellaneous Notes * Cerner Conversion Note - Sonia ProviderMD - 07/25/2019 6:00 AM INCOME TAX INVESTIGATOR Pain Assessment Entered On: 07/25/2019 6:35 EST [...]
--- OUTSIDE RECORDS SUMMARY | 2025-03-14 10:56 | XMS_ITS | Encounter Summary ---
Author Organization [employer] ([place], [place], [place], [place]) Address [address] [place] [address] Care Team Providers Care Media Supervisor Name Role Phone Unavailable Primary Care Provider Unavailabl e Encounter Details Date Type Department Care Team (Late st Contact Info) Description 07/24/2019 Transcribed Document [facility] Radiology 1 [place] [address] Travis Robles MD [address] [place], [place] [address] Social History Tobacco Use Types Packs/Day Years [...] with physical therapy with the , nurse, caseworker protective services all the bedside. She look like she is about to fallout ofthe bed. The patient's was asking about taking her home. He wanted to know if Dr. Patrick Knutson M.D. with orthopedic surgery actually goes to see patients at the [facility] That he does not go to the [place] although 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 Physical therapy strongly agreed that he needs to go to inpatient rehabilitation either [facility] are at the [place]. No fevers or chills. No nausea vomiting. [...] retirement facility. Patient's nurse and the patient's caseworker protective services who saw her upstairs saw her again [...] list: Medical Adrenal insufficiency / SNOMED CT 2111067994 / Confirmed Aortic valve stenosis / SNOMED CT 004352366 / Confirmed Arthritis / SNOMED CT 1220580 / Confirmed Asthma / SNOMED CT 488884518 / Confirmed At risk for sleep apnea / IMO 50232492 / Confirmed Cataracts, both eyes / SNOMED CT 911144541 / Confirmed chronic back pain / SNOMED CT 960238593 / Confirmed chronic diarrhea / SNOMED CT 661361978 / Confirmed Chronic kidney disease / SNOMED CT 4905338473 / Confirmed B12 deficiency / SNOMED CT 109649652 / Confirmed Dementia / SNOMED CT 53393266 / Confirmed depression / SNOMED CT 94317378 / Confirmed uses Renexa / SNOMED CT 7213909 / Confirmed chronic hydrocort use / SNOMED CT 5792463 / Confirmed peripheral neuropathy / SNOMED CT 72586664 / Confirmed GERD / SNOMED CT 263963219 / Confirmed fibromyalgia / SNOMED CT 92058374 / Confirmed Glaucoma / SNOMED CT 78183151 / Confirmed migraine headaches / SNOMED CT 593507544 / Confirmed hx cataract surgery bilateral / SNOMED CT 7659014465 / Confirmed hx. chest pain / SNOMED CT 4353725846 / Confirmed hx colon resection secondary decreased function / SNOMED CT 1576470316 / Confirmed hx. frequent UTIs / SNOMED CT 9473696754 / Confirmed high cholesterol / SNOMED CT 86805077 / Confirmed high blood pressure / SNOMED CT 7919020118 / Confirmed Hypothyroidism / SNOMED CT 45603630 / Confirmed kidney stone right kidney current and hx / SNOMED CT 940719948 / Confirmed Osteoporosis / SNOMED CT 661075792 / Confirmed Pneumonia / SNOMED CT 301492168 / Confirmed restless leg syndrome / SNOMED CT 42366436 / Confirmed rheumatoid arthritis / SNOMED CT 275927433 / Confirmed Seasonal allergies / SNOMED CT 1531653550 / Confirmed Vitamin D deficiency / SNOMED CT 70000958 / Confirmed Resolved: Hypotension / SNOMED CT 26354312 Canceled: adrenal insufficiency / SNOMED CT 3497942819 Canceled: Hyperthyroidism / SNOMED CT [id number], Active Problems (33) Adrenal insufficiency Aortic valve [...] azelastine 137 mcg/inh (0.1%) nasal spray: 2 [place], Nasal, BID, PRN: Allergies budesonide: 0.5 mg, [...] intl units oral capsule: 1 Cap, Oral, [id number], 0 Refill(s) Dilaudid: pain pump, 0 Refill(s) Flax Seed Oil: 1,200 mg, Oral, BID, 0 Refill(s) Flonase: 1 [place], Nostrils Both, BID Lunesta: 3 mg, Oral, [...] azelastine 205.5 mcg/inh (0.15%) nasal spray: 2 [place], Nasal, BID, PRN: for allergy symptoms, 0 [...] azelastine 205.5 mcg/inh (0.15%) nasal spray 2 [place], PRN, Nasal, BID biotin 5 mg, Oral, [...] 50,000 Int Units = 1 Cap, Oral, [id number] Dilaudid donepezil 23 mg, Oral, Daily famotidine 40 mg, Oral, BID Flax Seed Oil 1,200 mg, Oral, BID Flonase 1 [place], Nostrils Both, BID gabapentin 100 mg oral [...] azelastine 137 mcg/spray nasal 30 mL 2 [place], Nasal, BID bisacodyl 10 mg supp 10 [...] is obese and debilitated, her , nurse, caseworker protective services THE bedside. The really voiced some interest [...] the afternoon. The patient's nurse and her caseworker protective services who saw her yesterday at the bedside and we'll concur that she would benefit from short-term retirement facility placement given her right hip replacement. Explained to the patient that if she were to go home and fall could be life ending situation. Recheck a CBC and basic metabolic profile in the morning. [employer] dictation system used. Computer program makes numerous spelling grammar mistakes. If you have any questions or concerns do not hesitate call Dr. Travis Lux at cell phone number [phone]. documented in this encounter Plan of Treatment Not on file documented as of this encounter Visit Diagnoses Not on filedocumented in this encounter
--- OUTSIDE RECORDS SUMMARY | 2025-03-14 10:56 | XMS_ITS | Encounter Summary ---
Author Organization [employer] ([place], [place], [place], [place]) Address [address] [place] [address] Care Team Providers Care Matrix Bath Operator Name Role Phone Unavailable Primary Care Provider Unavailabl e Encounter Details Date Type Department Care Team (Late st Contact Info) Description 07/24/2019 Transcribed Document [facility] [place] [address] [place] [address] ProviderSonia MD [address] [place], [place] [address] Social History Tobacco Use Types Packs/Day Years Used Date Smoking Tobacco: Never Assessed Comments Unknown Sex and Gender Information Value Date Recorded Sex Assigned at Not on file Legal Sex Female 1:42 PM CDT Gender Identity Not on file Sexual Orientation Not on file documented as of this encounter Miscellaneous Notes * Cerner Conversion Note - Sonia ProviderMD - 07/24/2019 2:00 PM MIXING TECHNICIAN Pain Assessment Entered On: 07/24/2019 14:29 EST [...]
--- OUTSIDE RECORDS SUMMARY | 2025-03-14 10:56 | XMS_ITS | Encounter Summary ---
Author Organization [employer] ([place], [place], [place], [place]) Address [address] [place] [address] Care Team Providers Care Precision Dyer Name Role Phone Unavailable Primary Care Provider Unavailabl e Encounter Details Date Type Department Care Team (Late st Contact Info) Description 07/24/2019 Transcribed Document [facility] [place] [address] [place] [address] ProviderSonia MD [address] [place], [place] [address] Social History Tobacco Use Types Packs/Day Years Used Date Smoking Tobacco: Never Assessed Comments Unknown Sex and Gender Information Value Date Recorded Sex Assigned at Not on file Legal Sex Female 1:42 PM CDT Gender Identity Not on file Sexual Orientation Not on file documented as of this encounter Miscellaneous Notes * Cerner Conversion Note - Sonia ProviderMD - 07/24/2019 10:00 PM SHEETROCK APPLICATOR Pain Assessment Entered On: 07/25/2019 0:08 EST [...]
--- OUTSIDE RECORDS SUMMARY | 2025-03-14 10:57 | XMS_ITS | Encounter Summary ---
Author Organization [employer] ([place], [place], [place], [place]) Address [address] [place] [address] Care Team Providers Care Charter Coordinator Name Role Phone Unavailable Primary Care Provider Unavailabl e Encounter Details Date Type Department Care Team (Late st Contact Info) Description 08/01/2019 Transcribed Document [facility] Family Medicine [address] [place] [address] ProviderSonia MD [address] [place], [place] [address] Social History Tobacco Use Types Packs/Day Years Used Date Smoking Tobacco: Never Assessed Comments Unknown Sex and Gender Information Value Date Recorded Sex Assigned at Not on file Legal Sex Female 1:42 PM CDT Gender Identity Not on file Sexual Orientation Not on file documented as of this encounter Miscellaneous Notes * Cerner Conversion Note - Sonia ProviderMD - 08/01/2019 5:00 PM STAFF SOFTWARE ENGINEER Chart Check - Review Order Profile [...] Visit Diagnoses Not on filedocumented in this encounter"
--- OUTSIDE RECORDS SUMMARY | 2025-03-14 10:57 | XMS_ITS | Encounter Summary ---
Author Organization [employer] ([place], [place], [place], [place]) Address [address] [place] [address] Care Team Providers Care Universal Banker Name Role Phone Unavailable Primary Care Provider Unavailabl e Encounter Details Date Type Department Care Team (Late st Contact Info) Description 07/22/2019 Transcribed Document [facility] Family Medicine Formerly [facility], [facility] [place] [address] ProviderSonia MD [address] [place] [id number] Social History Tobacco Use Types Packs/Day Years Used Date Smoking Tobacco: Never Assessed Comments Unknown Sex and Gender Information Value Date Recorded Sex Assigned at Not on file Legal Sex Female 1:42 PM CDT Gender Identity Not on file Sexual Orientation Not on file documented as of this encounter Miscellaneous Notes * Cerner Conversion Note - Sonia Boogie MD - 07/22/2019 11:20 AM OPERATIONAL ASSISTANT Pain Assessment Entered On: 07/28/2019 9:52 EST [...]
--- OUTSIDE RECORDS SUMMARY | 2025-03-14 10:57 | XMS_ITS | Encounter Summary ---
Author Organization [employer] ([place], [place], [place]) Address [address] [place] [address] Care Team Providers Care Blender Operator Name Role Phone Unavailable Primary Care Provider Unavailabl e Encounter Details Date Type Department Care Team (Late st Contact Info) Description 08/02/2019 Transcribed Document [facility] [place] Family Medicine [address] [place] [address] ProviderSonia MD [address] [place], [place] [address] Social History Tobacco Use Types Packs/Day Years Used Date Smoking Tobacco: Never Assessed Comments Unknown Sex and Gender Information Value Date Recorded Sex Assigned at Not on file Legal Sex Female 1:42 PM CDT Gender Identity Not on file Sexual Orientation Not on file documented as of this encounter Miscellaneous Notes * Cerner Conversion Note - Historical ProviderMD - 08/02/2019 11:31 AM DRY WALL SPRAYER Discharge Summary, OT Entered On: 08/02/2019 11:32 EST Performed On: 08/02/2019 11:31 EST by CAM KELLY OTR/L Discharge Summary, OT Reason for Discharge : Discharged from hospital CAM KELLY OTR/L - 08/02/2019 11:31 EST Discharge Summary Comment, OT : per case mgt pt has been approved to discharge to [facility] today for further rehab from which she will benefit from continued OT, remaining goals not met per eval however progressing daily toward goals and motivated CAM KELLY OTR/L - 08/02/2019 11:32 EST documented in this encounter Plan of Treatment Not on file documented as of this encounter Visit Diagnoses Not on filedocumented in this encounter
--- OUTSIDE RECORDS SUMMARY | 2025-03-14 10:57 | XMS_ITS | Encounter Summary ---
Author Organization [employer] ([place], [place], [place]) Address [address] [place] [address] Care Team Providers Care Rn Peritoneal Dialysis Name Role Phone Unavailable Primary Care Provider Unavailabl e Encounter Details Date Type Department Care Team (Late st Contact Info) Description 08/02/2019 Transcribed Document [facility] [place] Medicine [address] [place] [address] ProviderSonia MD [address] [place], [place] [address] Social History Tobacco Use Types Packs/Day Years Used Date Smoking Tobacco: Never Assessed Comments Unknown Sex and Gender Information Value Date Recorded Sex Assigned at Not on file Legal Sex Female 1:42 PM CDT Gender Identity Not on file Sexual Orientation Not on file documented as of this encounter Miscellaneous Notes * Cerner Conversion Note - Sonia Boogie MD - 08/02/2019 10:41 AM OUTSIDE SOLAR SALES CONSULTANT Final Discharge Planning Entered On: 08/02/2019 10:49 EST Performed On: 08/02/2019 10:41 EST by NICHOLAS HOGUE, RN-Senior Materials Planner Final Discharge Planning Discharge Arrangements : Patient [...] : IRF -Inpatient Rehabilitation Facility-62 NICHOLAS HOGUE, RN-Senior Materials Planner - 08/02/2019 10:41 EST Final Narrative Note Final Narrative Note : Received call from Ann who states the pt has a bed on [facility] today in acute in-pt rehab. No choice form need be signed as this is the only facility that provides this level of care in [place]. IM was reviewed with pt and spouse and after discussion with PT, determination was made that pt is able to be transferred by private vehicle with stand pivot with gait belt into and out of vehicle. Her spouse is agreeable to transport the pt to [facility]. CM notified the bedside RN and the physician, Dr. Waterman. CM will fax d/c summary when available. No further d/c needs identified. NICHOLAS HOGUE, RN-Senior Materials Planner - 08/02/2019 10:41 EST Electronically signed by Raman [facility] Conversion Glove Maker Cerner at 11/19/2022 8:37 PM CDT documented in this encounter Plan of Treatment Not on file documented as of this encounter Visit Diagnoses Not on filedocumented in this encounter
--- OUTSIDE RECORDS SUMMARY | 2025-03-14 10:57 | XMS_ITS | Encounter Summary ---
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 - [employer] Social History Tobacco [...] Department Care Team (Late Contact Info) Description 06/26/2025 9:30 AM EST Procedure visit [facility] PULMONARY & CRITICAL CARE MEDICINE [address] [place] [address] 06/26/2025 10:00 AM EST Office Visit [facility] PULMONARY & CRITICAL CARE MEDICINE [address] [place] [address] Kaitlin Joiner, PILE FABRIC KNITTER [address] [place] [address] 09/12/2025 10:00 AM EST Office Visit [facility] CARDIOLOGY [address] [facility] [address] [place] [id number] Jimmy Duncan MD [address] [facility] [address] [place] [address] documented as of this encounter Visit Diagnoses [...] documented as of this encounter Care Teams Dough Mixer Operator Relationship Specialty Start Date End Date Marc Rodriguez MD [address] [facility] [address] [place] [address] PCP - General Adolescent Medicine 12/08/16 documented as of this encounter
--- OUTSIDE RECORDS SUMMARY | 2025-03-14 10:57 | XMS_ITS | Encounter Summary ---
Author Organization [employer] ([place], [place], [place]) Address [address] [place] [address] Care Team Providers Care Director Of Occupational Health Name Role Phone Unavailable Primary Care Provider Unavailabl e Encounter Details Date Type Department Care Team (Late st Contact Info) Description 07/26/2019 Transcribed Document [facility] [place] Family Medicine [address] [place] [address] ProviderSonia MD [address] [place], [place] [address] Social History Tobacco Use Types Packs/Day Years Used Date Smoking Tobacco: Never Assessed Comments Unknown Sex and Gender Information Value Date Recorded Sex Assigned at Not on file Legal Sex Female 1:42 PM CDT Gender Identity Not on file Sexual Orientation Not on file documented as of this encounter Miscellaneous Notes * Cerner Conversion Note - Sonia ProviderMD - 07/26/2019 5:00 PM IRRIGATOR VALVE PIPE Chart Check - Review Order Profile Entered On: 07/26/2019 17:15 EST Performed On: 07/26/2019 17:00 EST by Jennifer Coleman, RN Chart Check Powerplans Initiated/Discontinued as Appropriate : Yes All Active Orders Reviewed : Yes Jennifer Coleman, RN - 07/26/2019 17:15 EST Electronically signed by Raman [facility] Conversion Senior Electronics Design Engineer Cerner at 11/19/2022 8:40 PM CDT documented in this encounter Plan of Treatment Not on file documented as of this encounter Visit Diagnoses Not on filedocumented in this encounter
--- OUTSIDE RECORDS SUMMARY | 2025-03-14 10:57 | XMS_ITS | Encounter Summary ---
Author Organization [employer] ([place], [place], [place], [place]) Address [address] [place] [address] Care Team Providers Care Retina Subspecialist Name Role Phone Unavailable Primary Care Provider Unavailabl e Encounter Details Date Type Department Care Team (Late st Contact Info) Description 07/22/2019 Transcribed Document [facility] [place] [place] [address] [place] [address] ProviderSonia MD [address] [place], [place] [address] Social History Tobacco Use Types Packs/Day Years Used Date Smoking Tobacco: Never Assessed Comments Unknown Sex and Gender Information Value Date Recorded Sex Assigned at Not on file Legal Sex Female 1:42 PM CDT Gender Identity Not on file Sexual Orientation Not on file documented as of this encounter Miscellaneous Notes * Cerner Conversion Note - Sonia Boogie MD - 07/22/2019 8:11 AM GROUNDS CARETAKER [facility] Main OR PACU Summary Primary Physician: PEE VILLAR MD-ORT Finalized Date/Time: 07/22/19 13:31:44 Pt. Name: SANDIE FRANK Jovana AnthonyB./Sex: 1955 Female Med Rec #: [id number] Physician: PEE VILLAR MD-ORT Financial #: [id number] Pt. Type: I Room/Bed: 51/1 Admit/Disch: 07/22/19 04:50:00 - Institution: [facility] OR PACU Case Times Entry 1 In PACU I 07/22/19 09:39:00 Ready for PACU 07/22/19 11:35:00 Discharge Discharge from PACU 07/22/19 11:45:00 I Last Modified By: Lauren Cohen RN 07/22/19 13:31:42 [facility] Main OR PACU Case Times Audit 07/22/19 13:31:42 Mediation Commissioner: MISAEL Modifier: HELFEP <+> 1 Discharge from PACU I Finalized By: Lauren Cohen, RN Document Signatures Signed By: Lauren Cohen RN 07/22/19 13:31 Electronically signed by Raman [facility] Conversion Accounts Receivable Bookkeeper Cerner at 11/19/2022 8:29 PM CDT documented in this encounter Plan of Treatment Not on file documented as of this encounter Visit Diagnoses Not on filedocumented in this encounter
--- OUTSIDE RECORDS SUMMARY | 2025-03-14 10:57 | XMS_ITS | Encounter Summary ---
Author Organization [facility] Address [address] [place] [address] Care Team Providers Care Electrical Development Engineer Name Role Phone Marc Rodriguez MD Primary Care Provider [phone] Edgardo Zuñiga MD Unavailable [phone] Giulia Briggs Unavailable [phone] Edgardo Zuñiga MD Unavailable [phone] Esther Mathew Unavailable [phone] Encounter Details Date Type Department Care Team (Latest Contact Info) Description 03/09/2025 Travel Social History Tobacco Use Types Packs/Day [...] place to sleep or slept in a fpc (including now)? No 05/13/2024 PHQ-9 Answer Date [...] Visit [facility] [address] [place] [address] Suzan Galindo DO [address] [place] [address] 03/07/2026 9:20 AM EDT Office Visit [facility] Orthopaedic Surgery & Sports Medicine [address] [place] [address] Edgardo Zuñiga MD [address] [facility] [address] [place] [address] documented as of this encounter [...] documented as of this encounter Care Teams Electrical Development Engineer Relationship Specialty Start Date End Date Marc Rodriguez MD [address] [place] [address] PCP - General 12/14/20 Edgardo Zuñiga MD [address] [place] [address] Surgeon Neurosurgery 03/04/21 Giulia Briggs PA [address] [place] [address] Physician Fish Agent Neurosurgery 07/03/21 Edgardo Zuñiga MD [address] [place] [address] Surgeon Neurosurgery 09/16/21 Esther Mathew PA [address] [place] [address] Physician Fish Agent Neurology 11/19/22 documented as of this encounter
--- OUTSIDE RECORDS SUMMARY | 2025-03-14 10:57 | XMS_ITS | Encounter Summary ---
Author Organization [employer] ([place], [place], [place], [place]) Address [address] [place] [address] Care Team Providers Care Sand Conditioner Name Role Phone Unavailable Primary Care Provider Unavailabl e Encounter Details Date Type Department Care Team (Late st Contact Info) Description 07/27/2019 Transcribed Document [facility] Radiology [address] [place] [address] Travis Robles MD [address] [place], [place] [address] Social History Tobacco Use Types Packs/Day Years [...] - 07/27/2019 11:50 AM EST Patient: SANDIE FRNAK Age: 63 years Sex: Female : 1955 Associated Diagnoses: None Author: TRAVIS ROBLES MD-INT Subjective Chief complaint. Tuesday, July 23, 2019. No fevers or chills. No shortness of breath coughing wheezing. She has a right hip pain postoperatively and she's working with physical therapy with the , nurse, case filler all the bedside. She look like she is about to fallout ofthe bed. The patient's was asking about taking her home. He wanted to know if Dr. Patrick Knutson M.D. with orthopedic surgery actually goes to see patients at the [facility] That he does not go to the [facility] although 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 Physical therapy strongly agreed that he needs to go to inpatient rehabilitation either [facility] are at the [facility]. No fevers or chills. No nausea [...] She is still agreeable to going to intermediate facility. Patient's nurse and the patient's case filler who saw her upstairs saw her again [...] the bedside as well as the case filler. They're looking at placement options. Apparently wanted facilities turn her down because of Lunesta apparently it's expensive medication and then there is a inhaler that she was getting that was expensive. I told her that we could probably find more affordable alternatives at least while she is in the intermediate facility if necessary. Saturday, July 27, 2019. [...] list: Medical Adrenal insufficiency / SNOMED CT 8367630819 / Confirmed Aortic valve stenosis / SNOMED CT 074297211 / Confirmed Arthritis / SNOMED CT 3421254 / Confirmed Asthma / SNOMED CT 666078685 / Confirmed At risk for sleep apnea / IMO 54177141 / Confirmed Cataracts, both eyes / SNOMED CT 304788813 / Confirmed chronic back pain / SNOMED CT 989102687 / Confirmed chronic diarrhea / SNOMED CT 181445853 / Confirmed Chronic kidney disease / SNOMED CT 7544769859 / Confirmed B12 deficiency / SNOMED CT 069786429 / Confirmed Dementia / SNOMED CT 43934201 / Confirmed depression / SNOMED CT 42847513 / Confirmed uses Renexa / SNOMED CT 0258098 / Confirmed chronic hydrocort use / SNOMED CT 4561901 / Confirmed peripheral neuropathy / SNOMED CT 36309257 / Confirmed GERD / SNOMED CT 352181635 / Confirmed fibromyalgia / SNOMED CT 60987336 / Confirmed Glaucoma / SNOMED CT 43399931 / Confirmed migraine headaches / SNOMED CT 350818052 / Confirmed hx cataract surgery bilateral / SNOMED CT 7986426136 / Confirmed hx. chest pain / SNOMED CT 0851591070 / Confirmed hx colon resection secondary decreased function / SNOMED CT 3955628554 / Confirmed hx. frequent UTIs / SNOMED CT 0197095569 / Confirmed high cholesterol / SNOMED CT 52269905 / Confirmed high blood pressure / SNOMED CT 8424902331 / Confirmed Hypothyroidism / SNOMED CT 31991176 / Confirmed kidney stone right kidney current and hx / SNOMED CT 821958284 / Confirmed Osteoporosis / SNOMED CT 596235877 / Confirmed Pneumonia / SNOMED CT 835161581 / Confirmed restless leg syndrome / SNOMED CT 11843004 / Confirmed rheumatoid arthritis / SNOMED CT 683973376 / Confirmed Seasonal allergies / SNOMED CT 7429855145 / Confirmed Vitamin D deficiency / SNOMED CT 23885233 / Confirmed Resolved: Hypotension / SNOMED CT 99555206 Canceled: adrenal insufficiency / SNOMED CT 9843747529 Canceled: Hyperthyroidism / SNOMED CT 60808EFW-JJC0-391Z-447L-49008KEV4931, Active Problems (33) Adrenal insufficiency Aortic valve [...] mg, Rectal, 1-Time, PRN: Constipation Flonase: 1 Perkins, Nostrils Both, BID Florastor: 250 mg, Oral, [...] intl units oral capsule: 1 Cap, Oral, V8Culbu, 0 Refill(s) Dilaudid: pain pump, 0 Refill(s) Flax Seed Oil: 1,200 mg, Oral, BID, 0 Refill(s) Flonase: 1 Perkins, Nostrils Both, BID Lunesta: 3 mg, Oral, [...] azelastine 205.5 mcg/inh (0.15%) nasal spray: 2 Perkins, Nasal, BID, PRN: for allergy symptoms, 0 [...] azelastine 205.5 mcg/inh (0.15%) nasal spray 2 Perkins, PRN, Nasal, BID biotin 5 mg, Oral, [...] 50,000 Int Units = 1 Cap, Oral, E6Ldtug Dilaudid donepezil 23 mg, Oral, Daily famotidine 40 mg, Oral, BID Flax Seed Oil 1,200 mg, Oral, BID Flonase 1 Perkins, Nostrils Both, BID gabapentin 100 mg oral [...] Oral, QAM fluticasone 0.05% nasal spray 1 Perkins, Nostrils Both, BID gabapentin 100 mg cap [...] obese and debilitated, her , nurse, case filler THE bedside. The really voiced some interest [...] afternoon. The patient's nurse and her case filler who saw her yesterday at the bedside and we'll concur that she would benefit from short-term intermediate facility placement given her right hip replacement. [...] creatinine screw 0.9. PATIENT, her , case filler. She was turned down by the [facility] because she's on some expensive medications [...] gets a bed at a rehabilitation facility. [employer]ario dictation system used. Computer program makes numerous spelling grammar mistakes. If you have any questions or concerns do not hesitate call Dr. Travis Lux at cell phone number [phone]. documented in this encounter Plan of Treatment Not on file documented as of this encounter Visit Diagnoses Not on filedocumented in this encounter
--- OUTSIDE RECORDS SUMMARY | 2025-03-14 10:57 | XMS_ITS | Encounter Summary ---
Author Organization [employer] ([place], [place], [place], [place]) Address [address] [place] [address] Care Team Providers Care Sales Promotion Director Name Role Phone Unavailable Primary Care Provider Unavailabl e Encounter Details Date Type Department Care Team (Late st Contact Info) Description 07/27/2019 Transcribed Document [facility] [place] [address] [place] [address] ProviderSonia MD [address] [place], [place] [address] Social History Tobacco Use Types Packs/Day Years Used Date Smoking Tobacco: Never Assessed Comments Unknown Sex and Gender Information Value Date Recorded Sex Assigned at Not on file Legal Sex Female 1:42 PM CDT Gender Identity Not on file Sexual Orientation Not on file documented as of this encounter Miscellaneous Notes * Cerner Conversion Note - Sonia ProviderMD - 07/27/2019 6:00 AM BLUE PRINTS TRIMMER Pain Assessment Entered On: 07/27/2019 6:58 EST [...]
--- OUTSIDE RECORDS SUMMARY | 2025-03-14 10:57 | XMS_ITS | Encounter Summary ---
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 MACHINE OPERATOR - [facility] Social History Tobacco Use [...] Description 06/26/2025 9:30 AM EST Procedure visit [facility] PULMONARY & CRITICAL CARE MEDICINE [address] [place] [address] 06/26/2025 10:00 AM EST Office Visit [facility] PULMONARY & CRITICAL CARE MEDICINE [address] [place] [address] Kaitlin Joiner, HUMAN RESOURCES DIRECTOR [address] [place] [address] 09/12/2025 10:00 AM EST Office Visit [facility] CARDIOLOGY [address] [facility] [address] [place] [address] Jimmy Duncan MD [address] [facility] [address] [place] [address] documented as of this encounter Visit Diagnoses [...] as of this encounter Care Teams Senior Sales Associate Relationship Specialty Start Date End Date Marc Rodriguez MD [address] [facility] [address] [place] [place] [address] PCP - General Adolescent Medicine 12/08/16 documented as of this encounter
--- OUTSIDE RECORDS SUMMARY | 2025-03-14 10:57 | XMS_ITS | Encounter Summary ---
Author Organization [employer] ([place], [place], [place]) Address [address] [place] [address] Care Team Providers Care Printing Press Operator Name Role Phone Unavailable Primary Care Provider Unavailabl e Encounter Details Date Type Department Care Team (Late st Contact Info) Description 07/27/2019 Transcribed Document [facility] [place] [address] [place] [address] ProviderSonia MD [address] [place], [place] [address] Social History Tobacco Use Types Packs/Day Years Used Date Smoking Tobacco: Never Assessed Comments Unknown Sex and Gender Information Value Date Recorded Sex Assigned at Not on file Legal Sex Female 1:42 PM CDT Gender Identity Not on file Sexual Orientation Not on file documented as of this encounter Miscellaneous Notes * [employer]ner Conversion Note - Historical ProviderMD - 07/27/2019 2:00 AM CREATIVE RECRUITER Clay Carman Details Entered On: 07/27/2019 2:11 EST Performed [...]
--- OUTSIDE RECORDS SUMMARY | 2025-03-14 10:57 | XMS_ITS | Encounter Summary ---
Author Organization [employer] ([place], [place], [place], [place]) Address [address] [place] [address] Care Team Providers Care Research Instructor Name Role Phone Unavailable Primary Care Provider Unavailabl e Encounter Details Date Type Department Care Team (Late st Contact Info) Description 07/22/2019 Transcribed Document [facility] [place] Family Medicine [facility], [facility] [place] [address] ProviderSonia MD [facility], [facility] [place], [place] [address] Social History Tobacco Use Types Packs/Day Years Used Date Smoking Tobacco: Never Assessed Comments Unknown Sex and Gender Information Value Date Recorded Sex Assigned at Not on file Legal Sex Female 1:42 PM CDT Gender Identity Not on file Sexual Orientation Not on file documented as of this encounter Miscellaneous Notes * [employer]ner Conversion Note - Sonia Boogie MD - 07/22/2019 11:57 AM SUPERVISOR ALTERATION WORKROOM Admission History, Adult Entered On: 07/22/2019 12:03 [...] Spouse Legal Guardian : No Support Person/Patient Fleet Maintenance Foreman : Yes Support Person/Pt Rep Name : spouse Jose Frank Contact Password : [email or web address] Support Person/Pt Rep Contact Information : [phone] Want Family/Rep/Phys Notified of Admit : No Emergency Contact #1 : Jose Emergency Contact # Emergency Contact #1 Relationship : spouse Emergency Contact #2 : -Angeline Emergency Contact #2 Phone Number : [phone] Emergency Contact #2 Relationship : -daughter Information Obtained From : Patient, Spouse Primary Language : Persian Preferred Communication Mode : Verbal Communication Barrier [...] Level : 46 or > High Risk [place] Fall Interventions : Adequate lighting, Bed in [...] Source : Stated Height Entry Format : Myra Height, Feet : 5 ft(Converted to: 152 cm, 60 Inch) Height, Inches : 7 Inch(Converted to: 0 ft 7 Inch, 17.78 cm) Clinical Height : 170.18 cm Weight Source : Standing scale Weight Entry Format : Myra Clinical Dosing Weight : 104.55 kg Weight, Pounds : 230 lb Body Surface Area (BSA) : 2.15 m2 Body Mass Index : 36.1 kg/m2 (HI) [place] Body Weight : 61 kg Aimee Willis [...] Aimee Willis RN - 07/22/2019 11:57 EST [place] Suicide Severity Rating Scale (C-SSRS) CSSRS Past [...] 07/22/2019 11:57 EST Electronically signed by Raman, [facility] Conversion Feed House Supervisor Cerner at 11/19/2022 8:29 PM CDT documented in this encounter Plan of Treatment Not on file documented as of this encounter Visit Diagnoses Not on filedocumented in this encounter
--- OUTSIDE RECORDS SUMMARY | 2025-03-14 10:57 | XMS_ITS | Encounter Summary ---
Author Organization [employer] ([place], [place], [place], [place]) Address [address] [place] [address] Care Team Providers Care Casino Cage Cashier Name Role Phone Unavailable Primary Care Provider Unavailabl e Encounter Details Date Type Department Care Team (Late st Contact Info) Description 07/27/2019 Transcribed Document [facility] [place] Family Medicine [facility] [place] [address] ProviderSonia MD [facility] [place], [place] [address] Social History Tobacco Use Types Packs/Day Years Used Date Smoking Tobacco: Never Assessed Comments Unknown Sex and Gender Information Value Date Recorded Sex Assigned at Not on file Legal Sex Female 1:42 PM CDT Gender Identity Not on file Sexual Orientation Not on file documented as of this encounter Miscellaneous Notes * Cerner Conversion Note - Sonia ProviderMD - 07/27/2019 2:00 PM GREENHOUSE TECHNICIAN Pain Assessment Entered On: 07/27/2019 16:45 EST [...] form. Electronically signed by Ivelisse Camargo Conversion Wastewater Treatment Operator Cerner at 11/19/2022 8:22 PM CDT documented in this encounter Plan of Treatment Not on file documented as of this encounter Visit Diagnoses Not on filedocumented in this encounter
--- OUTSIDE RECORDS SUMMARY | 2025-03-14 10:57 | XMS_ITS | Encounter Summary ---
Author Organization Healthcare Address [address] [place] [address] Care Team Providers Care Laborer Powerhouse Name Role Phone Marc Rodriguez MD Primary Care Provider [phone] Edgardo Zuñiga MD Unavailable [phone] Giulia Briggs Unavailable [phone] Edgardo Zuñiga MD Unavailable [phone] Esther Mathew Unavailable [phone] Reason for Visit * Reason Comments Med Refill Encounter Details Date Type Department Care Team (Late st Contact Info) Description 02/28/2025 [place] [facility] [address] [place] [address] Esther Mathew PA [address] [place] [address] Social History Tobacco Use Types [...] place to sleep or slept in a care home (including now)? No 05/13/2024 PHQ-9 Answer Date Recorded Patient Health Questionnaire-9 Score 0 07/05/2024 Utilities Answer Date Recorded In the past 12 months has th e [employer], gas, oil, or water [employer] threatened to shut off services in your [...] Visit [facility] at [facility] [address] [address] Suzan Galindo DO [address] [place] [address] 03/07/2026 9:20 AM EDT Office Visit [facility] Orthopaedic Surgery & Sports Medicine [address] [place] [address] Edgardo Zuñiga MD [address] [facility] [address] [place] [address] documented as of this encounter [...] documented as of this encounter Care Teams Laborer Powerhouse Relationship Specialty Start Date End Date Marc Rodriguez MD [address] [place] [address] PCP - General 12/14/20 Edgardo Zuñiga MD [address] [place] [address] Surgeon Neurosurgery 03/04/21 Giulia Briggs PA [address] [place] [address] Physician Test Kitchen Home Economist Neurosurgery 07/03/21 Edgardo Zuñiga MD [address] [place] [address] Surgeon Neurosurgery 09/16/21 Esther Mathew PA [address] [place] [address] Physician Test Kitchen Home Economist Neurology 11/19/22 documented as of this encounter
--- OUTSIDE RECORDS SUMMARY | 2025-03-14 10:57 | XMS_ITS | Encounter Summary ---
Author Organization [employer] ([place], [place], [place]) Address [address] [place] [address] Care Team Providers Care Mdm Sr Name Role Phone Unavailable Primary Care Provider Unavailabl e Encounter Details Date Type Department Care Team (Late st Contact Info) Description 07/27/2019 Transcribed Document [facility] [place] [address] [place] [address] ProviderSonia MD [address] [place], [place] [address] Social History Tobacco Use Types Packs/Day Years Used Date Smoking Tobacco: Never Assessed Comments Unknown Sex and Gender Information Value Date Recorded Sex Assigned at Not on file Legal Sex Female 1:42 PM CDT Gender Identity Not on file Sexual Orientation Not on file documented as of this encounter Miscellaneous Notes * Cerner Conversion Note - Sonia ProviderMD - 07/27/2019 5:00 PM CAN CRIMPER Chart Check - Review Order Profile Entered On: 07/27/2019 20:01 EST Performed On: 07/27/2019 17:00 EST by Esther Cunningham RN Chart Check Powerplans Initiated/Discontinued as Appropriate : Yes All Active Orders Reviewed : Yes Esther Cunningham RN - 07/27/2019 20:01 EST documented in this encounter Plan of Treatment Not on file documented as of this encounter Visit Diagnoses Not on filedocumented in this encounter
--- OUTSIDE RECORDS SUMMARY | 2025-03-14 10:57 | XMS_ITS | Encounter Summary ---
Author Organization [employer] ([place], [place]) Address [address] [place] [address] Care Team Providers Care Rn Orthopaedics Name Role Phone Unavailable Primary Care Provider Unavailabl e Encounter Details Date Type Department Care Team (Late st Contact Info) Description 07/22/2019 Transcribed Document [facility] [place] [facility] [place] [address] ProviderSonia MD [address] [place] [id number] Social History Tobacco Use Types Packs/Day Years Used Date Smoking Tobacco: Never Assessed Comments Unknown Sex and Gender Information Value Date Recorded Sex Assigned at Not on file Legal Sex Female 1:42 PM CDT Gender Identity Not on file Sexual Orientation Not on file documented as of this encounter Miscellaneous Notes * Cerner Conversion Note - Sonia ProviderMD - 07/22/2019 1:17 PM ENGRAVER FLATWARE Treatment Intervention, OT Entered On: 07/23/2019 15:49 [...] XAVIER ARIEL, OTR/Cat - 07/23/2019 15:44 EST Electric Motor Repair Supervisor Goals, OT Other LTG Grid Goal #1 [...] ARIEL PARK OTR/Cat - 07/23/2019 15:44 EST documented in this encounter Plan of Treatment Not on file documented as of this encounter Visit Diagnoses Not on filedocumented in this encounter
--- OUTSIDE RECORDS SUMMARY | 2025-03-14 10:57 | XMS_ITS | Encounter Summary ---
Author Organization [facility] Address [address] [place] [address] Care Team Providers Care Information Systems Security Developer Name Role Phone Marc Rodriguez MD Primary Care Provider Encounter Details Date Type Department Care Team (Late st Contact Info) Description 06/23/2019 External CPT II GAS PLANT TECHNICIAN - [facility] Social History Tobacco [...] Description 06/26/2025 9:30 AM EST Procedure visit [facility] MEDICINE [address] [place] [address] 06/26/2025 10:00 AM EST Office Visit [facility]ICINE [address] [place] [address] Kaitlin Joiner, REED POLISHER [address] [place] [address] 09/12/2025 10:00 AM EST Office Visit [facility] CARDIOLOGY [address] [facility] [address] [place] [phone] Jimmy Duncan MD [address] [facility] [address] [place] [address] documented as of this encounter Visit Diagnoses [...] documented as of this encounter Care Teams Information Systems Security Developer Relationship Specialty Start Date End Date Marc Rodriguez MD [address] [facility] [address] [facility] [place] [address] PCP - General Adolescent Medicine 12/08/16 documented as of this encounter
--- OUTSIDE RECORDS SUMMARY | 2025-03-14 10:57 | XMS_ITS | Encounter Summary ---
Author Organization [facility] Address [address] [place] [address] Care Team Providers Care Masonry Installer Name Role Phone Marc Rodriguez MD Primary Care Provider [phone] Encounter Details Date Type Department Care Team (Late st Contact Info) Description 11/26/2018 External CPT II CAR SALES REPRESENTATIVE - [employer] [facility] Social History Tobacco Use [...] Description 06/26/2025 9:30 AM EST Procedure visit [facility] PULMONARY [facility] MEDICINE [address] [place] [address] 06/26/2025 10:00 AM EST Office Visit [facility]UL[facility] MEDICINE [address] [place] [address] Kaitlin Joiner, PLATE TAKE OUT WORKER [address] [place] [address] 09/12/2025 10:00 AM EST Office Visit [facility] CARDIOLOGY [address] [facility] [address] [place] [phone] Jimmy Duncan MD [address] [facility] [address] [place] [address] documented as of this encounter Visit Diagnoses [...] documented as of this encounter Care Teams Masonry Installer Relationship Specialty Start Date End Date Marc Rodriguez MD [address] [facility] [address] [facility] [place] [address] PCP - General Adolescent Medicine 12/08/16 documented as of this encounter
--- OUTSIDE RECORDS SUMMARY | 2025-03-14 10:57 | XMS_ITS | Encounter Summary ---
Author Organization [facility] ([place], [place], [place]) Address [address] [place] [address] Care Team Providers Care Top Former Name Role Phone Unavailable Primary Care Provider Unavailabl e Encounter Details Date Type Department Care Team (Late st Contact Info) Description 07/26/2019 Transcribed Document [facility] [place] Family Medicine [address] [place] [address] ProviderSonia MD [address] [place], [place] [address] Social History Tobacco Use Types Packs/Day Years Used Date Smoking Tobacco: Never Assessed Comments Unknown Sex and Gender Information Value Date Recorded Sex Assigned at Not on file Legal Sex Female 1:42 PM CDT Gender Identity Not on file Sexual Orientation Not on file documented as of this encounter Miscellaneous Notes * Cerner Conversion Note - Historical ProviderMD - 07/26/2019 2:00 AM SUPPORT MANAGER Heavy Machinery Operator Details Entered On: 07/26/2019 4:47 EST Performed [...]
--- OUTSIDE RECORDS SUMMARY | 2025-03-14 10:57 | XMS_ITS | Encounter Summary ---
Author Organization [email or web address] ([place], [place], [place]) Address [address] [place] [address] Care Team Providers Care Manager Freelance Name Role Phone Unavailable Primary Care Provider Unavailabl e Encounter Details Date Type Department Care Team (Late st Contact Info) Description 08/02/2019 Transcribed Document [facility] Family Medicine [place] [address] ProviderSonia MD [address] [place], [place] [address] Social History Tobacco Use Types Packs/Day Years Used Date Smoking Tobacco: Never Assessed Comments Unknown Sex and Gender Information Value Date Recorded Sex Assigned at Not on file Legal Sex Female 1:42 PM CDT Gender Identity Not on file Sexual Orientation Not on file documented as of this encounter Miscellaneous Notes * Cerner Conversion Note - Sonia Boogie MD - 08/02/2019 10:36 AM JOINERY SETTER OUT Patient Education Materials Follows: What to expect [...] Barley. Bulgur wheat. Millet. Bran muffins. Popcorn. Newton wafer crackers. Vegetables Sweet potatoes. Spinach. Kale. Artichokes. Cabbage. Broccoli. Green peas. Carrots. Squash. Fruits Berries. Pears. Apples. Oranges. Avocados. Prunes and raisins. Dried figs. Meats and Other Protein Sources [place], kidney, roland, and soy beans. Split [...] lolis has 11 g of protein. ?? Letcher seeds - 1 oz has 5.5 g [...] floor. ?? Place frequently used items in [id number]-rw-[id number] places ?? Keep electrical cables out of [...] ?? Using the bathroom. ?? Using household ceo & board director or toxic chemicals. ?? Touching or taking [...] 5. Step down with your stronger leg. documented in this encounter Plan of Treatment Not on file documented as of this encounter Visit Diagnoses Not on filedocumented in this encounter
--- OUTSIDE RECORDS SUMMARY | 2025-03-14 10:57 | XMS_ITS | Encounter Summary ---
Author Organization [employer] ([place], [place]) Address [address] [place] [address] Care Team Providers Care Human Factors Advisor Lead Name Role Phone Unavailable Primary Care Provider Unavailabl e Encounter Details Date Type Department Care Team (Late st Contact Info) Description 08/02/2019 Transcribed Document [facility] Family Medicine [address] [place] [address] ProviderSonia MD [address] [place] [address] Social History Tobacco Use Types Packs/Day Years Used Date Smoking Tobacco: Never Assessed Comments Unknown Sex and Gender Information Value Date Recorded Sex Assigned at Not on file Legal Sex Female 1:42 PM CDT Gender Identity Not on file Sexual Orientation Not on file documented as of this encounter Miscellaneous Notes * Cerner Conversion Note - Sonia ProviderMD - 08/02/2019 6:00 AM CRITICAL CARE TRANSPORT NURSE Pain Assessment Entered On: 08/02/2019 6:53 EST [...]
--- OUTSIDE RECORDS SUMMARY | 2025-03-14 10:57 | XMS_ITS | Encounter Summary ---
Author Organization [employer] ([place], [place], [place]) Address [address] [place] [address] Care Team Providers Care Blanker Press Operator Name Role Phone Unavailable Primary Care Provider Unavailabl e Encounter Details Date Type Department Care Team (Late st Contact Info) Description 07/22/2019 Transcribed Document [facility] [address] [place] [address] ProviderSonia MD [address] [place], [place] [address] Social History Tobacco Use Types Packs/Day Years Used Date Smoking Tobacco: Never Assessed Comments Unknown Sex and Gender Information Value Date Recorded Sex Assigned at Not on file Legal Sex Female 1:42 PM CDT Gender Identity Not on file Sexual Orientation Not on file documented as of this encounter Miscellaneous Notes * Cerner Conversion Note - Sonia Boogie MD - 07/22/2019 11:20 AM RESIDENT PHYSICIAN IN RADIOLOGY Evaluation, Physical Therapy Entered On: 07/22/2019 13:23 [...] be a good candidate for rehab at [facility]. COOPER DEVLIN Physical Therapist - 07/22/2019 13:01 EST Traveling Buyer Goals Other PT LTG Grid Goal #1 Goal #2 Goal #3 Goal #4 Other : Pt will participate in therapeutic exercise training and be issued a written HEP in order to increase strength for improved gait and provide carryover into the home environment. Pt will transfer sup/sit and sit/stand with RWx and no more than Ankita to increase safety for mobility at [facility]. Pt will amb at leats 25 feet [...] the text rendition version of the form. [place] PT Charges PT Ther Activities Ea 15 Min : 1 PT Eval Low Complexity : 1 COOPER DEVLIN Physical Therapist - 07/22/2019 13:01 EST documented in this encounter Plan of Treatment Not on file documented as of this encounter Visit Diagnoses Not on filedocumented in this encounter
--- OUTSIDE RECORDS SUMMARY | 2025-03-14 10:57 | XMS_ITS | Encounter Summary ---
Author Organization [employer] ([place]) Address [address] [place] [address] Care Team Providers Care Luster Repairer Name Role Phone Unavailable Primary Care Provider Unavailabl e Encounter Details Date Type Department Care Team (Late st Contact Info) Description 07/26/2019 Transcribed Document [facility] [place] [address] [place] [address] ProviderSonia MD [address] [place], [place] [address] Social History Tobacco Use Types Packs/Day Years Used Date Smoking Tobacco: Never Assessed Comments Unknown Sex and Gender Information Value Date Recorded Sex Assigned at Not on file Legal Sex Female 1:42 PM CDT Gender Identity Not on file Sexual Orientation Not on file documented as of this encounter Miscellaneous Notes * Cerner Conversion Note - Sonia Boogie MD - 07/26/2019 3:24 PM DIGITAL CONTROLS TECHNICAL OFFICER On Going Discharge Planning Entered On: 07/26/2019 15:40 EST Performed On: 07/26/2019 15:24 EST by NICHOLAS HOGUE, RN-Parts RemoverGrease Machine Worker Progress Note Discharge Arrangements : Patient Post-Acute Information Patient Name: SANDIE FRANK Gender: Female : [birth year] Age: 63 Years No Post-Acute Placement(s) Listed No Post-Acute Service(s) Listed No [place] Referral(s) Listed Discharge Options Discussed with Patient : Short term rehabilitation NICHOLAS HOGUE, RN-Parts Remover - 07/26/2019 15:24 EST Narrative Progress Note Narrative Progress Note : Received call from Catalina pope MD at [facility] states the pt is declined for acute rehab and they are apprehensive about her coming to SRU due to her physical level of care. CM relayed this to the pt and spouse and they agree to have the pt referred to the following: [facility], [facility] and [place]. CM will fu for possible offers. Med list sent to [place] for review. Historical Progress Note : JAS sent text to Catalina with [facility] this am requesting update on bed availability. She has the pt being reviewed by their physician. CM set ambulance tentatively for tomorrow at 1400. Awaiting word from [facility]. NICHOLAS HOGUE, RN-Parts Remover - 07/25/19 15:17:05 CM sent text to Catalina with [facility] this am requesting update on bed availability. She has the pt being reviewed by their physician. CM set ambulance tentatively for tomorrow at 1400. Awaiting word from [facility]. CM updated pt and family. NICHOLAS HOGUE, RN-Parts Remover - 07/25/19 15:24:48 07/24 [address] with mrs Frank and she is awake and les shaky today... States she wants to go to rehab for getting strength and balance .. Await [facility] eval ,, She 's had her 3 Midnight stay in hospital .... LAMBERT Steele, RN-Parts Remover - 07/24/19 15:20:00 NICHOLAS HOGUE, RN-Parts Remover - 07/26/2019 15:24 EST Electronically signed by [facility] Conversion Mapping Specialist Cerner at 11/19/2022 8:24 PM CDT documented in this encounter Plan of Treatment Not on file documented as of this encounter Visit Diagnoses Not on filedocumented in this encounter
--- OUTSIDE RECORDS SUMMARY | 2025-03-14 10:57 | XMS_ITS | Encounter Summary ---
Author Organization [employer] ([place], [place], [place]) Address [address] [place] [address] Care Team Providers Care Boring Mill Operator For Metal Name Role Phone Unavailable Primary Care Provider Unavailabl e Encounter Details Date Type Department Care Team (Late st Contact Info) Description 07/22/2019 Transcribed Document [facility] [place] Family Medicine [place] [address] ProviderSonia MD [address] [place] [address] Social History Tobacco Use Types Packs/Day Years Used Date Smoking Tobacco: Never Assessed Comments Unknown Sex and Gender Information Value Date Recorded Sex Assigned at Not on file Legal Sex Female 1:42 PM CDT Gender Identity Not on file Sexual Orientation Not on file documented as of this encounter Miscellaneous Notes * Cerner Conversion Note - Sonia ProviderMD - 07/22/2019 1:36 PM GAUGE AND WEIGH MACHINE ADJUSTER Patient: SANDIE FRANK Age: 63 Years Sex: Female : 1955 Chief Complaint s/p Right Total Hip Arthroplasty by Dr. Villar. Primary Care Provider LEOPOLDO TEJADA (REF)[facility] History of Present Illness Mrs. Frank is [...] discharge due to hx of going to [facility] after her last elective orthopedic shoulder [...] azelastine 205.5 mcg/inh (0.15%) nasal spray 2 [place], PRN, Nasal, BID biotin 5 mg, Oral, [...] 50,000 Int Units = 1 Cap, Oral, D7Lyrik Dilaudid donepezil 23 mg, Oral, Daily famotidine [...] Code, Continuous Order Electronically signed by Raman, [facility] Conversion Cap Coverer Cerner at 11/19/2022 8:23 PM CDT documented in this encounter Plan of Treatment Not on file documented as of this encounter Visit Diagnoses Not on filedocumented in this encounter
--- OUTSIDE RECORDS SUMMARY | 2025-03-14 10:57 | XMS_ITS | Encounter Summary ---
Author Organization Healthcare Address [address] [place] [address] Care Team Providers Care Managing Consultant Clinical Professor Name Role Phone Marc Rodriguez MD Primary Care Provider [phone] Edgardo Zuñiga MD Unavailable [phone] Giulia Briggs Unavailable [phone] Edgardo Zuñiga MD Unavailable [phone] Esther Mathew Unavailable [phone] Encounter Details Date Type Department Care Team (Late st Contact Info) Description 03/10/2025 Orders Only [facility] at [facility] [address] [place] [address] Suzan Galindo DO [address] [place] [address] Social History Tobacco Use Types Packs/Day Years [...] place to sleep or slept in a intermediate (including now)? No 05/13/2024 PHQ-9 Answer Date Recorded Patient Health Questionnaire-9 Score 0 07/05/2024 Utilities Answer Date Recorded In the past 12 months has th e [employer], gas, oil, or water company threatened to [...] [place] [facility] [address] [place] [address] Ryan LauraSuzan matt, DO [address] [place] [address] 03/07/2026 9:20 AM EDT Office Visit [facility] Orthopaedic Surgery & Sports Medicine [address] [place] [address] Edgardo Zuñiga MD [address] [place] [address] documented as of this encounter [...] documented as of this encounter Care Teams Managing Consultant Clinical Professor Relationship Specialty Start Date End Date Marc Rodriguez MD [address] [facility] [address] [place] [address] PCP - General 12/14/20 Edgardo Zuñiga MD [address] [place] [address] Surgeon Neurosurgery 03/04/21 Giulia Briggs PA [address] [place] [address] Physician Qlikview Developer Neurosurgery 07/03/21 Edgardo Zuñiga MD [address] [place] [address] Surgeon Neurosurgery 09/16/21 Esther Mathew PA [address] [address] Physician Qlikview Developer Neurology 11/19/22 documented as of this encounter
--- OUTSIDE RECORDS SUMMARY | 2025-03-14 10:57 | XMS_ITS | Encounter Summary ---
Author Organization Healthcare Address [address] [place] [address] Care Team Providers Care Rocket Engine Component Mechanic Name Role Phone Marc Rodriguez MD Primary Care Provider [phone] Edgardo Zuñiga MD Unavailable [phone] Giulia Briggs Unavailable [phone] Edgardo Zuñiga MD Unavailable [phone] Esther Mathew Unavailable [phone] Encounter Details Date Type Department Care Team (Late st Contact Info) Description 03/10/2025 Results Follow-Up Physical Medicine & Rehabilitation Clinic at [facility] [address] [place] [address] Suzan Galindo DO [address] [facility] [address] [place] [address] Social History Tobacco Use Types [...] place to sleep or slept in a [place] health care facility (including now)? No 05/13/2024 PHQ-9 Answer Date Recorded Patient Health Questionnaire-9 Score 0 07/05/2024 Utilities Answer Date Recorded In the past 12 months has th e [email or web address], gas, oil, or water [email or web address] threatened to shut off services in your home? No 05/13/2024 Comments No Sex and Gender Information Value Date Recorded Sex Assigned at Female 07/31/2021 6:10 AM EST Legal Sex Female 8:40 PM EDT Gender Identity Female 07/31/2021 6:10 AM EST Sexual Orientation Not on file documented as of this encounter Miscellaneous Notes * Result Encounter Note - Preeti Delacruz Brisa - 03/10/2025 3:35 PM EDT I spoke with pt and relayed message to her * Result Encounter Note - Suzan Galindo DO - 03/10/2025 3:13 PM EDT Pt is taking a few meds that impact liver including Tylenol, cymbalta, dantrolene. I would suggest changing her dantrolene to 1/2 dose which is 50 mg four times a day. I will send a new Rx. Also, needs to see pcp to recheck for her potassium issue as they need to fu on the lab to see if it persists. She will need repeat labs in 3-4 weeks to see if improved. Also if she can lower her tylenol dosing that too will help. * Result Encounter Note - Preeti Delacruz - 03/10/2025 2:15 PM EDT I spoke with pt and let her know the only things that she is taking are what's on the chart. Updated medication list. * Result Encounter Note - Suzan Galindo DO - 03/10/2025 1:52 PM EDT Let them know her potassium is high, is she taking any? Also, liver function is high a little. Please get a list of ALL meds so we can try to figure out what else we need to do. Thanks. documented in this encounter Plan of Treatment Upcoming Encounters Date Type Department Care Team (Late st Contact Info) Description 09/11/2025 11:50 AM EST Office Visit [facility] at [facility] [address] [place] [address] Suzan Galindo DO [address] [place] [address] 03/07/2026 9:20 AM EDT Office Visit [facility] Orthopaedic Surgery & Sports Medicine [address] [place] [address] Edgardo Zuñiga MD [address] [place] [address] documented as of this encounter [...] documented as of this encounter Care Teams Rocket Engine Component Mechanic Relationship Specialty Start Date End Date Marc Rodriguez MD [address] [place], [place] [id number] PCP - General 12/14/20 Edgardo Zuñiga MD [address] [place] [address] Surgeon Neurosurgery 03/04/21 Giulia Briggs PA [address] [place] [address] Physician Tractor Operator Laser Leveling Neurosurgery 07/03/21 Edgardo Zuñiga MD [address] [place] [address] Surgeon Neurosurgery 09/16/21 Esther Mathew PA [address] [place] [address] Physician Tractor Operator Laser Leveling Neurology 11/19/22 documented as of this encounter
--- OUTSIDE RECORDS SUMMARY | 2025-03-14 10:57 | XMS_ITS | Encounter Summary ---
Author Organization [employer] ([place], [place], [place], [place]) Address [address] [place] [address] Care Team Providers Care Bushing Press Operator Name Role Phone Unavailable Primary Care Provider Unavailabl e Encounter Details Date Type Department Care Team (Late st Contact Info) Description 07/22/2019 Transcribed Document [facility] [place] [facility] [place] [address] ProviderSonia MD [facility] [place], [place] [address] Social History Tobacco Use Types Packs/Day Years Used Date Smoking Tobacco: Never Assessed Comments Unknown Sex and Gender Information Value Date Recorded Sex Assigned at Not on file Legal Sex Female 1:42 PM CDT Gender Identity Not on file Sexual Orientation Not on file documented as of this encounter Miscellaneous Notes * Cerner Conversion Note - Sonia Boogie MD - 07/22/2019 2:01 PM PRODUCT GRADER Patient: SANDIE FRANK Age: 63 years Sex: [...] azelastine 205.5 mcg/inh (0.15%) nasal spray 2 Paton, PRN, Nasal, BID biotin 5 mg, Oral, [...] 50,000 Int Units = 1 Cap, Oral, [id number] Dilaudid donepezil 23 mg, Oral, Daily famotidine [...] meropenem None Documented Thanks, Bulmaro Elizondo, PharmD #[id number] Electronically signed by [facility] Conversion Asphalt Paver Operator Cerner at 11/19/2022 8:26 PM CDT documented in this encounter Plan of Treatment Not on file documented as of this encounter Visit Diagnoses Not on filedocumented in this encounter
--- OUTSIDE RECORDS SUMMARY | 2025-03-14 10:57 | XMS_ITS | Encounter Summary ---
Author Organization [employer] ([place], [place]) Address [address] [place] [address] Care Team Providers Care Manager Sales Training Name Role Phone Unavailable Primary Care Provider Unavailabl e Encounter Details Date Type Department Care Team (Late st Contact Info) Description 07/26/2019 Transcribed Document [facility] [place] Medicine [facility] [place] [address] ProviderSonia MD [facility] [place], [place] [address] Social History Tobacco Use Types Packs/Day Years Used Date Smoking Tobacco: Never Assessed Comments Unknown Sex and Gender Information Value Date Recorded Sex Assigned at Not on file Legal Sex Female 1:42 PM CDT Gender Identity Not on file Sexual Orientation Not on file documented as of this encounter Miscellaneous Notes * Cerner Conversion Note - Sonia ProviderMD - 07/26/2019 6:00 AM PLUG SAW OPERATOR Pain Assessment Entered On: 07/26/2019 6:21 EST [...]
--- OUTSIDE RECORDS SUMMARY | 2025-03-14 10:57 | XMS_ITS | Encounter Summary ---
Author Organization [employer] ([place], [place]) Address [address] [place] [address] Care Team Providers Care Community Health Nurse Staff Name Role Phone Unavailable Primary Care Provider Unavailabl e Encounter Details Date Type Department Care Team (Late st Contact Info) Description 08/01/2019 Transcribed Document [facility] [place] Family Medicine [address] [place] [address] ProviderSonia MD [address] [place], [place] [address] Social History Tobacco Use Types Packs/Day Years Used Date Smoking Tobacco: Never Assessed Comments Unknown Sex and Gender Information Value Date Recorded Sex Assigned at Not on file Legal Sex Female 1:42 PM CDT Gender Identity Not on file Sexual Orientation Not on file documented as of this encounter Miscellaneous Notes * Cerner Conversion Note - Sonia ProviderMD - 08/01/2019 10:00 PM LABEL OPERATOR Pain Assessment Entered On: 08/01/2019 23:54 EST [...]
--- OUTSIDE RECORDS SUMMARY | 2025-03-14 10:57 | XMS_ITS | Encounter Summary ---
Author Organization Healthcare Address [address] [place] [address] Care Team Providers Care Aircraft Designer Name Role Phone Marc Rodriguez MD Primary Care Provider [phone] Edgardo Zuñiga MD Unavailable [phone] Giulia Briggs Unavailable [phone] Edgardo Zuñiga MD Unavailable [phone] Esther Mathew Unavailable [phone] Encounter Details Date Type Department Care Team (Late st Contact Info) Description 03/07/2025 Orders Only [place] [facility] [address] [place] [address] Edgardo Zuñiga MD [address] [place] [address] S/P lumbar fusion (Primary Dx) [...] place to sleep or slept in a prison (including now)? No 05/13/2024 PHQ-9 Answer Date Recorded Patient Health Questionnaire-9 Score 0 07/05/2024 Utilities Answer Date Recorded In the past 12 months has th e [employer], gas, oil, or water [employer] threatened to shut off services in your [...] Clinic at [facility] [address] [place] [address] Suzan Galindo DO [address] [place] [address] 03/07/2026 9:20 AM EDT Office Visit [facility] Orthopaedic Surgery & Sports Medicine [address] [place] [address] Edgardo Zuñiga MD [address] [place] [address] documented as of this encounter Results * XR Lumbar Spine [...] Diagnosis S/P lumbar fusion- Primary Arthrodesis status S/P lumbar fusion Arthrodesis status documented in this encounter Additional Health Concerns Assessment Noted Time PHQ-9 Depression Total Score: 0 07/05/20 24 10:01 AM EST A fall risk assessment has been complete d for the patient 12/07/2024 12:51 PM EDT A Body Mass Index follow-up plan has been documented for the patient 12/07/2024 1:23 PM EDT documented as of this encounter Care Teams Aircraft Designer Relationship Specialty Start Date End Date Marc Rodriguez MD [address] [place] [address] PCP - General 12/14/20 Edgardo Zuñiga MD [address] [place] [address] Surgeon Neurosurgery 03/04/21 Giulia Briggs PA [address] [place] [address] Physician Active Directory Specialist Neurosurgery 07/03/21 Edgardo Zuñiga MD [address] [place] [address] Surgeon Neurosurgery 09/16/21 Esther Mathew PA [address] [place] [address] Physician Active Directory Specialist Neurology 11/19/22 documented as of this encounter
--- OUTSIDE RECORDS SUMMARY | 2025-03-14 10:57 | XMS_ITS | Encounter Summary ---
Author Organization [employer] ([place], [place], [place], [place]) Address [address] [place] [address] Care Team Providers Care Machine Stuffer Name Role Phone Unavailable Primary Care Provider Unavailabl e Encounter Details Date Type Department Care Team (Late st Contact Info) Description 08/01/2019 Transcribed Document [facility] [place] [facility] [address] [place] [address] ProviderSonia MD [address] [place], [place] [address] Social History Tobacco Use Types Packs/Day Years Used Date Smoking Tobacco: Never Assessed Comments Unknown Sex and Gender Information Value Date Recorded Sex Assigned at Not on file Legal Sex Female 1:42 PM CDT Gender Identity Not on file Sexual Orientation Not on file documented as of this encounter Miscellaneous Notes * Cerner Conversion Note - Sonia ProviderMD - 08/01/2019 2:00 AM WORLD GEOGRAPHY TEACHER Solvent Plant Treater Details Entered On: 08/01/2019 4:01 EST Performed [...] 08/01/2019 4:01 EST Electronically signed by Raman [facility] Conversion Wet Milling Wheel Operator Cerner at 11/19/2022 8:28 PM CDT documented in this encounter Plan of Treatment Not on file documented as of this encounter Visit Diagnoses Not on filedocumented in this encounter
--- OUTSIDE RECORDS SUMMARY | 2025-03-14 10:57 | XMS_ITS | Encounter Summary ---
Author Organization [employer] ([place], [place], [place]) Address [address] [place] [address] Care Team Providers Care Creative Services Specialist Name Role Phone Unavailable Primary Care Provider Unavailabl e Encounter Details Date Type Department Care Team (Late st Contact Info) Description 07/26/2019 Transcribed Document [facility] [place] [address] [place] [address] ProviderSonia MD [address] [place], [place] [address] Social History Tobacco Use Types Packs/Day Years Used Date Smoking Tobacco: Never Assessed Comments Unknown Sex and Gender Information Value Date Recorded Sex Assigned at Not on file Legal Sex Female 1:42 PM CDT Gender Identity Not on file Sexual Orientation Not on file documented as of this encounter Miscellaneous Notes * Cerner Conversion Note - Sonia ProviderMD - 07/26/2019 5:10 PM CHANGE ADVISOR Event Note Entered On: 07/26/2019 17:11 EST [...]
--- OUTSIDE RECORDS SUMMARY | 2025-03-14 10:57 | XMS_ITS | Encounter Summary ---
Author Organization Healthcare Address [address] [place] [address] Care Team Providers Care Manager Of Information Name Role Phone Marc Rodriguez MD Primary Care Provider [phone] Edgardo Zuñiga MD Unavailable [phone] Giulia Briggs Unavailable [phone] Edgardo Zuñiga MD Unavailable [phone] Esther Mathew Unavailable [phone] Reason for Visit * Reason Onset Date Comments Med Refill 03/10/2025 Encounter Details Date Type Department Care Team (Late st Contact Info) Description 03/10/2025 Refill Physical Medicine & Rehabilitation Clinic at [facility] [address] [place] [place] [address] Suzan Galindo DO [address] [facility] [address] [place] [address] Social History Tobacco Use Types [...] place to sleep or slept in a snf (including now)? No 05/13/2024 PHQ-9 Answer Date [...] [facility] [address] [place] [place] [address] Ryan LauraSuzan mattDO [address] [place] [address] 03/07/2026 9:20 AM EDT Office Visit [facility] Orthopa[facility] Surgery & Sports Medicine [address] [place] [address] Edgardo Zuñiga MD [address] [place] [address] documented as of this encounter [...] documented as of this encounter Care Teams Manager Of Information Relationship Specialty Start Date End Date Marc Rodriguez MD [address] [place] [address] PCP - General 12/14/20 Edgardo Zuñiga MD [address] [place] [address] Surgeon Neurosurgery 03/04/21 Giulia Briggs PA [address] [place] [address] Physician Battery Recharger Neurosurgery 07/03/21 Edgardo Zuñiga MD [address] [place] [address] Surgeon Neurosurgery 09/16/21 Esther Mathew PA [address] [place] [address] Physician Battery Recharger Neurology 11/19/22 documented as of this encounter
--- OUTSIDE RECORDS SUMMARY | 2025-03-14 10:57 | XMS_ITS | Encounter Summary ---
Author Organization [employer] ([place], [place], [place]) Address [address] [place] [address] Care Team Providers Care Tire Worker Name Role Phone Unavailable Primary Care Provider Unavailabl e Encounter Details Date Type Department Care Team (Late st Contact Info) Description 07/26/2019 Transcribed Document [facility] Radiology [address] [place] [address] Travis Robles MD [address] [place], [place] [id number] Social History Tobacco Use Types Packs/Day Years [...] physical therapy with the , nurse, case aide all the bedside. She look like she is about to fallout ofthe bed. The patient's was asking about taking her home. He wanted to know if Dr. Patrick Knutson M.D. with orthopedic surgery actually goes to see patients at the [facility] That he does not go to the [facility] although 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 Physical therapy strongly agreed that he needs to go to inpatient rehabilitation either [facility] are at the [facility]. No fevers or chills. No nausea vomiting. [...] custodial facility. Patient's nurse and the patient's case aide who saw her upstairs saw her again [...] the bedside as well as the case aide. They're looking at placement options. Apparently wanted facilities turn her down because of Lunesta apparently it's expensive medication and then there is a inhaler that she was getting that was expensive. I told her that we could probably find more affordable alternatives at least while she is in the custodial facility if necessary. Review of Systems Constitutional: [...] list: Medical Adrenal insufficiency / SNOMED CT 4485226642 / Confirmed Aortic valve stenosis / SNOMED CT 977860307 / Confirmed Arthritis / SNOMED CT 9366044 / Confirmed Asthma / SNOMED CT 776643121 / Confirmed At risk for sleep apnea / IMO 45814732 / Confirmed Cataracts, both eyes / SNOMED CT 604346055 / Confirmed chronic back pain / SNOMED CT 338104121 / Confirmed chronic diarrhea / SNOMED CT 839518437 / Confirmed Chronic kidney disease / SNOMED CT 9481815027 / Confirmed B12 deficiency / SNOMED CT 362604992 / Confirmed Dementia / SNOMED CT 90770043 / Confirmed depression / SNOMED CT 75358048 / Confirmed uses Renexa / SNOMED CT 4850200 / Confirmed chronic hydrocort use / SNOMED CT 0916030 / Confirmed peripheral neuropathy / SNOMED CT 14733003 / Confirmed GERD / SNOMED CT 139145343 / Confirmed fibromyalgia / SNOMED CT 48143938 / Confirmed Glaucoma / SNOMED CT 83741146 / Confirmed migraine headaches / SNOMED CT 523740269 / Confirmed hx cataract surgery bilateral / SNOMED CT 9730946529 / Confirmed hx. chest pain / SNOMED CT 8460406035 / Confirmed hx colon resection secondary decreased function / SNOMED CT 8743670190 / Confirmed hx. frequent UTIs / SNOMED CT 0942793474 / Confirmed high cholesterol / SNOMED CT 08019398 / Confirmed high blood pressure / SNOMED CT 1844631850 / Confirmed Hypothyroidism / SNOMED CT 49292888 / Confirmed kidney stone right kidney current and hx / SNOMED CT 666743688 / Confirmed Osteoporosis / SNOMED CT 239634762 / Confirmed Pneumonia / SNOMED CT 254761437 / Confirmed restless leg syndrome / SNOMED CT 17584486 / Confirmed rheumatoid arthritis / SNOMED CT 089525161 / Confirmed Seasonal allergies / SNOMED CT 8412387570 / Confirmed Vitamin D deficiency / SNOMED CT 45752441 / Confirmed Resolved: Hypotension / SNOMED CT 74837176 Canceled: adrenal insufficiency / SNOMED CT 3136690185 Canceled: Hyperthyroidism / SNOMED CT 31952RCO-RJG9-124Q-[id number], Active Problems (33) Adrenal insufficiency Aortic valve [...] mg, Rectal, 1-Time, PRN: Constipation Flonase: 1 Foster, Nostrils Both, BID Florastor: 250 mg, Oral, [...] intl units oral capsule: 1 Cap, Oral, T7Pibim, 0 Refill(s) Dilaudid: pain pump, 0 Refill(s) Flax Seed Oil: 1,200 mg, Oral, BID, 0 Refill(s) Flonase: 1 Foster, Nostrils Both, BID Lunesta: 3 mg, Oral, [...] azelastine 205.5 mcg/inh (0.15%) nasal spray: 2 Foster, Nasal, BID, PRN: for allergy symptoms, 0 [...] azelastine 205.5 mcg/inh (0.15%) nasal spray 2 Foster, PRN, Nasal, BID biotin 5 mg, Oral, [...] 50,000 Int Units = 1 Cap, Oral, M3Xlmew Dilaudid donepezil 23 mg, Oral, Daily famotidine 40 mg, Oral, BID Flax Seed Oil 1,200 mg, Oral, BID Flonase 1 Foster, Nostrils Both, BID gabapentin 100 mg oral [...] Oral, QAM fluticasone 0.05% nasal spray 1 Foster, Nostrils Both, BID gabapentin 100 mg cap [...] obese and debilitated, her , nurse, case aide THE bedside. The really voiced some interest [...] afternoon. The patient's nurse and her case aide who saw her yesterday at the bedside [...] creatinine screw 0.9. PATIENT, her , case aide. She was turned down by the [facility] because she's on some expensive medications including [...] but more affordable for the rehabilitation facility. [employer]wl biomedical dictation system used. Computer program makes numerous spelling grammar mistakes. If you have any questions or concerns do not hesitate call Dr. Travis Lux at cell phone number [phone]. documented in this encounter Plan of Treatment Not on file documented as of this encounter Visit Diagnoses Not on filedocumented in this encounter
--- OUTSIDE RECORDS SUMMARY | 2025-03-14 10:57 | XMS_ITS | Encounter Summary ---
Author Organization [employer] ([place], [place], [place], [place]) Address [address] [place] [address] Care Team Providers Care Deckhand Crab Boat Name Role Phone Unavailable Primary Care Provider Unavailabl e Encounter Details Date Type Department Care Team (Late st Contact Info) Description 08/01/2019 Transcribed Document [facility] [place] Family Medicine [facility] [place] [address] ProviderSonia MD [address] [place] [id number] Social History Tobacco Use Types Packs/Day Years Used Date Smoking Tobacco: Never Assessed Comments Unknown Sex and Gender Information Value Date Recorded Sex Assigned at Not on file Legal Sex Female 1:42 PM CDT Gender Identity Not on file Sexual Orientation Not on file documented as of this encounter Miscellaneous Notes * Cerner Conversion Note - Sonia ProviderMD - 08/01/2019 2:00 PM LOCOMOTIVE CRANE OPERATOR HELPER Pain Assessment Entered On: 08/01/2019 15:47 EST [...] version of the form. Electronically signed by Ivleisse Camargo Conversion Thermometer Production Worker Cerner at 11/19/2022 8:24 PM CDT documented in this encounter Plan of Treatment Not on file documented as of this encounter Visit Diagnoses Not on filedocumented in this encounter
--- OUTSIDE RECORDS SUMMARY | 2025-03-14 10:57 | XMS_ITS | Encounter Summary ---
Author Organization [facility] Address [address] [place] [address] Care Team Providers Care Practical Nursing Faculty Name Role Phone Marc Rodriguez MD Primary Care Provider [phone] Edgardo Zuñiga MD Unavailable [phone] Giulia Briggs Unavailable [phone] Edgardo Zuñiga MD Unavailable [phone] Esther Mathew Unavailable [phone] Encounter Details Date Type Department Care Team (Latest Contact Info) Description 03/08/2025 Travel Social History Tobacco Use Types Packs/Day [...] place to sleep or slept in a half-way (including now)? No 05/13/2024 PHQ-9 Answer Date [...] [facility] at [facility] [address] [place] [address] Suzan Galindo DO [address] [place] [address] 03/07/2026 9:20 AM EDT Office Visit [facility] Orthopaedic Surgery & Sports Medicine [address] [place] [address] Edgardo Zuñiga MD [address] [place] [address] documented as of this encounter Visit Diagnoses [...] documented as of this encounter Care Teams Practical Nursing Faculty Relationship Specialty Start Date End Date Marc Rodriguez MD [address] [place] [address] PCP - General 12/14/20 Edgardo Zuñiga MD [address] [place] [address] Surgeon Neurosurgery 03/04/21 Giulia Briggs PA [address] [place] [address] Physician Cardiovascular Sonographer Neurosurgery 07/03/21 Edgardo Zuñiga MD [address] [place] [address] Surgeon Neurosurgery 09/16/21 Esther Mathew PA [address] [place] [address] Physician Cardiovascular Sonographer Neurology 11/19/22 documented as of this encounter
--- OUTSIDE RECORDS SUMMARY | 2025-03-14 10:57 | XMS_ITS | Encounter Summary ---
Author Organization [employer] ([place], [place], [place], [place]) Address [address] [place] [address] Care Team Providers Care Asp Web Developer Name Role Phone Unavailable Primary Care Provider Unavailabl e Encounter Details Date Type Department Care Team (Late st Contact Info) Description 07/26/2019 Transcribed Document [facility] [place] [address] [place] [address] ProviderSonia MD [address] [place], [place] [address] Social History Tobacco Use Types Packs/Day Years Used Date Smoking Tobacco: Never Assessed Comments Unknown Sex and Gender Information Value Date Recorded Sex Assigned at Not on file Legal Sex Female 1:42 PM CDT Gender Identity Not on file Sexual Orientation Not on file documented as of this encounter Miscellaneous Notes * Cerner Conversion Note - Sonia ProviderMD - 07/26/2019 5:00 AM MANAGER ELECTRONIC Chart Check - Review Order Profile Entered On: 07/26/2019 4:47 EST Performed On: 07/26/2019 5:00 EST by Barrington Roberts RN Chart Check Powerplans Initiated/Discontinued as Appropriate : Yes All Active Orders Reviewed : Yes Barrington Roberts RN - 07/26/2019 4:47 EST Electronically signed by Raman [facility] Conversion Project Planner Cerner at 11/19/2022 8:43 PM CDT documented in this encounter Plan of Treatment Not on file documented as of this encounter Visit Diagnoses Not on filedocumented in this encounter
--- OUTSIDE RECORDS SUMMARY | 2025-03-14 10:57 | XMS_ITS | Encounter Summary ---
Author Organization [employer] ([place], [place], [place]) Address [address] [place] [address] Care Team Providers Care Commodity Management Specialist Name Role Phone Unavailable Primary Care Provider Unavailabl e Encounter Details Date Type Department Care Team (Late st Contact Info) Description 07/26/2019 Transcribed Document [facility] [place] [address] [place] [address] ProviderSonia MD [address] [place], [place] [address] Social History Tobacco Use Types Packs/Day Years Used Date Smoking Tobacco: Never Assessed Comments Unknown Sex and Gender Information Value Date Recorded Sex Assigned at Not on file Legal Sex Female 1:42 PM CDT Gender Identity Not on file Sexual Orientation Not on file documented as of this encounter Miscellaneous Notes * Cerner Conversion Note - Sonia ProviderMD - 07/26/2019 10:00 PM HAND METHOD LASTING MACHINE OPERATOR Pain Assessment Entered On: 07/27/2019 2:08 EST [...]
--- OUTSIDE RECORDS SUMMARY | 2025-03-14 10:57 | XMS_ITS | Encounter Summary ---
Author Organization [email or web address] ([place], [place], [place]) Address [address] [place] [address] Care Team Providers Care Miller Rod Mill Name Role Phone Unavailable Primary Care Provider Unavailabl e Encounter Details Date Type Department Care Team (Late st Contact Info) Description 07/26/2019 Transcribed Document [facility] [place] [address] [place] [address] ProviderSonia MD [address] [place], [place] [address] Social History Tobacco Use Types Packs/Day Years Used Date Smoking Tobacco: Never Assessed Comments Unknown Sex and Gender Information Value Date Recorded Sex Assigned at Not on file Legal Sex Female 1:42 PM CDT Gender Identity Not on file Sexual Orientation Not on file documented as of this encounter Miscellaneous Notes * Cerner Conversion Note - Sonia Boogie MD - 07/26/2019 7:51 PM CASE WORK AIDE Event Note Entered On: 07/26/2019 19:51 EST [...]
--- OUTSIDE RECORDS SUMMARY | 2025-03-14 10:57 | XMS_ITS | Encounter Summary ---
Author Organization [employer] ([place], [place], [place]) Address [address] [place] [address] Care Team Providers Care Personnel Clerk Name Role Phone Unavailable Primary Care Provider Unavailabl e Encounter Details Date Type Department Care Team (Late st Contact Info) Description 07/22/2019 Transcribed Document [facility] [place] [facility] [place] [address] ProviderSonia MD [address] [place], [place] [address] Social History Tobacco Use Types Packs/Day Years Used Date Smoking Tobacco: Never Assessed Comments Unknown Sex and Gender Information Value Date Recorded Sex Assigned at Not on file Legal Sex Female 1:42 PM CDT Gender Identity Not on file Sexual Orientation Not on file documented as of this encounter Miscellaneous Notes * Cerner Conversion Note - Sonia ProviderMD - 07/22/2019 6:29 AM ELECTROPHYSIOLOGIST Pre Procedure Adult Entered On: 07/22/2019 6:33 EST Performed On: 07/22/2019 6:29 EST by NABEEL FABIAN RN Height and Weight, Clinical Dosing Height Source : Stated Height Entry Format : [place] Height, Feet : 5 ft(Converted to: 152 cm, 60 Inch) Height, Inches : 7 Inch(Converted to: 0 ft 7 Inch, 17.78 cm) Clinical Height : 170.18 cm Weight Source : Standing scale Weight Entry Format : [place] Clinical Dosing Weight : 104.55 kg Weight, Pounds : 230 lb Body Surface Area (BSA) : 2.15 m2 Body Mass Index : 36.1 kg/m2 (HI) [place] Body Weight : 61 kg NABEEL FABIAN [...] (Last Updated: 07/08/2019 09:38:28 EST by BHAVANI CMCORMICK RN) Alcohol: Alcohol Use History No. (Last [...] NABEEL FABIAN RN - 07/22/2019 6:51 EST [place] Suicide Severity Rating Scale (C-SSRS) CSSRS Past [...] EST Legal Guardian : No Support Person/Patient Voicer : Yes Support Person/Pt Rep Name : spouse Jose Frank Contact Password : [email or web address] Support Person/Pt Rep Contact Information : [phone] Want Family/Rep/Phys Notified of Admit : No Emergency Contact #1 : Jose Emergency Contact # Emergency Contact #1 Relationship : spouse Emergency Contact #2 : - Emergency Contact #2 Phone Number : - Emergency Contact #2 Relationship : - Information Obtained From : Patient Primary Language : Comoran Preferred Communication Mode : Verbal Communication Barrier [...] Level : 46 or > High Risk [place] Fall Interventions : Adequate lighting, Assistive devices [...] the text rendition version of the form. [place] Coma [place] Best Motor Response : Obey commands [place] Best Verbal Response : Oriented Roxanne Eye Opening Response : Spontaneous [place]oxanne Coma Score : 15 NABEEL FABIAN RN - 07/22/2019 6:29 EST Electronically signed by Raman, [facility] Conversion Senior Linux Systems Engineer Cerner at 11/19/2022 8:27 PM CDT documented in this encounter Plan of Treatment Not on file documented as of this encounter Visit Diagnoses Not on filedocumented in this encounter
--- OUTSIDE RECORDS SUMMARY | 2025-03-14 10:57 | XMS_ITS | Encounter Summary ---
Author Organization [employer] ([place]) Address [address] [place] [address] Care Team Providers Care Piping Designer Name Role Phone Unavailable Primary Care Provider Unavailabl e Encounter Details Date Type Department Care Team (Late st Contact Info) Description 07/26/2019 Transcribed Document [facility] [place] [address] [place] [address] ProviderSonia MD [address] [place], [place] [address] Social History Tobacco Use Types Packs/Day Years Used Date Smoking Tobacco: Never Assessed Comments Unknown Sex and Gender Information Value Date Recorded Sex Assigned at Not on file Legal Sex Female 1:42 PM CDT Gender Identity Not on file Sexual Orientation Not on file documented as of this encounter Miscellaneous Notes * Cerner Conversion Note - Sonia ProviderMD - 07/26/2019 2:00 PM E COMMERCE MARKETING MANAGER Pain Assessment Entered On: 07/26/2019 16:06 EST [...]
--- OUTSIDE RECORDS SUMMARY | 2025-03-14 10:58 | XMS_ITS | Encounter Summary ---
Author Organization [employer] ([place], [place]) Address [address] [place] [address] Care Team Providers Care Cotton Washer Name Role Phone Unavailable Primary Care Provider Unavailabl e Encounter Details Date Type Department Care Team (Late st Contact Info) Description 07/22/2019 Transcribed Document [facility] [place] [facility] [place] [address] ProviderSonia MD [facility] [place], [place] [id number] Social History Tobacco Use Types Packs/Day Years Used Date Smoking Tobacco: Never Assessed Comments Unknown Sex and Gender Information Value Date Recorded Sex Assigned at Not on file Legal Sex Female 1:42 PM CDT Gender Identity Not on file Sexual Orientation Not on file documented as of this encounter Miscellaneous Notes * Cerner Conversion Note - Sonia Boogie MD - 07/22/2019 11:20 AM CELLULAR PLASTICS CUTTER Pain Assessment Entered On: 07/23/2019 12:22 EST [...]
--- OUTSIDE RECORDS SUMMARY | 2025-03-14 10:58 | XMS_ITS | Encounter Summary ---
Author Organization [employer] ([place], [place], [place]) Address [address] [place] [address] Care Team Providers Care Aegis Operations Specialist Name Role Phone Unavailable Primary Care Provider Unavailabl e Encounter Details Date Type Department Care Team (Late st Contact Info) Description 07/31/2019 Transcribed Document [facility] [place] [address] [place] [address] ProviderSonia MD [address] [place], [place] [address] Social History Tobacco Use Types Packs/Day Years Used Date Smoking Tobacco: Never Assessed Comments Unknown Sex and Gender Information Value Date Recorded Sex Assigned at Not on file Legal Sex Female 1:42 PM CDT Gender Identity Not on file Sexual Orientation Not on file documented as of this encounter Miscellaneous Notes * Cerner Conversion Note - Sonia Boogie MD - 07/31/2019 6:00 AM GEEK SQUAD AUTOTECH Pain Assessment Entered On: 07/31/2019 8:48 EST Performed On: 07/31/2019 9:10 EST by Trina Adorno RN Intervention Information: acetaminophen Performed by Cathie Lundy RN on 07/31/2019 08:10:00 EST acetaminophen,1000mg Oral Pain Assessment Pain Assessment : Follow-up assessment Pain Scale Goal : 5 Pain Improved by Intervention : Yes Trina Adorno RN - 07/31/2019 8:48 EST Electronically signed by Ivelisse Camargo Conversion Paper Cone Machine Operator Cerner at 11/19/2022 8:34 PM CDT documented in this encounter Plan of Treatment Not on file documented as of this encounter Visit Diagnoses Not on filedocumented in this encounter
--- OUTSIDE RECORDS SUMMARY | 2025-03-14 10:58 | XMS_ITS | Encounter Summary ---
Author Organization [employer] ([place], [place]) Address [address] [place] [address] Care Team Providers Care Abrasive Coating Machine Operator Name Role Phone Unavailable Primary Care Provider Unavailabl e Encounter Details Date Type Department Care Team (Late st Contact Info) Description 07/22/2019 Transcribed Document [facility] [place] [facility] [place] [address] ProviderSonia MD [address] [place] [id number] Social History Tobacco Use Types Packs/Day Years Used Date Smoking Tobacco: Never Assessed Comments Unknown Sex and Gender Information Value Date Recorded Sex Assigned at Not on file Legal Sex Female 1:42 PM CDT Gender Identity Not on file Sexual Orientation Not on file documented as of this encounter Miscellaneous Notes * Cerner Conversion Note - Sonia Boogie MD - 07/22/2019 8:36 AM OFFICE NURSE PRACTITIONER Patient: SANDIE FRANK Age: 63 Years Sex: [...] azelastine 205.5 mcg/inh (0.15%) nasal spray 2 [place], PRN, Nasal, BID biotin 5 mg, Oral, [...] 50,000 Int Units = 1 Cap, Oral, M0Mghbu donepezil 23 mg, Oral, Daily famotidine 40 [...] TID Electronically signed by Ivelisse Camargo Conversion Flame Cutting Machine Operator Cerner at 11/19/2022 8:22 PM CDT documented in this encounter Plan of Treatment Not on file documented as of this encounter Visit Diagnoses Not on filedocumented in this encounter
--- OUTSIDE RECORDS SUMMARY | 2025-03-14 10:58 | XMS_ITS | Encounter Summary ---
Author Organization [employer] ([place], [place], [place], [place]) Address [address] [place] [address] Care Team Providers Care Route Inspector Name Role Phone Unavailable Primary Care Provider Unavailabl e Encounter Details Date Type Department Care Team (Late st Contact Info) Description 07/08/[address] [facility] [place] Family Medicine [facility] [place] [address] ProviderSonia MD [address] [place] [id number] Social History Tobacco Use Types Packs/Day Years Used Date Smoking Tobacco: Never Assessed Comments Unknown Sex and Gender Information Value Date Recorded Sex Assigned at Not on file Legal Sex Female 1:42 PM CDT Gender Identity Not on file Sexual Orientation Not on file documented as of this encounter Miscellaneous Notes * Cerner Conversion Note - Sonia ProviderMD - 07/08/2019 9:48 AM MANAGEMENT MANAGER PAT Adult Entered On: 07/08/2019 9:55 EST [...] Source : Stated Height Entry Format : [place] Height, Feet : 5 ft(Converted to: 152 cm, 60 Inch) Height, Inches : 7 Inch(Converted to: 0 ft 7 Inch, 17.78 cm) Clinical Height : 170.18 cm Weight Source : Standing scale Weight Entry Format : [place] Clinical [facility] Weight : 104.55 kg Weight, Pounds : 230 lb Body Surface Area (BSA) : 2.15 m2 Body Mass Index : 36.1 kg/m2 (HI) [place] Body Weight : 61 kg BHAVANI MCCORMICK [...] BHAVANI MCCORMICK RN - 07/08/2019 9:48 EST [place] Suicide Severity Rating Scale (C-SSRS) CSSRS Past [...] Sandie Legal Guardian : No Support Person/Patient Food Cooking Machine Operator : Yes Support Person/Pt Rep Name : spouse Jose Frank Contact Password : [email or web address] Support Person/Pt Rep Contact Information : [phone] Want Family/Rep/Phys Notified of Admit : No Emergency Contact #1 : Jose Emergency Contact #1 Emergency Contact #1 Relationship : spouse Emergency Contact #2 : - Emergency Contact #2 Phone Number : - Emergency Contact #2 Relationship : - Primary Language : Guyanese Preferred Communication Mode : Verbal Communication Barrier [...]
--- OUTSIDE RECORDS SUMMARY | 2025-03-14 10:58 | XMS_ITS | Encounter Summary ---
Author Organization [employer] ([place], [place], [place], [place]) Address [address] [place] [address] Care Team Providers Care Supervisory Geographer Name Role Phone Unavailable Primary Care Provider Unavailabl e Encounter Details Date Type Department Care Team (Late st Contact Info) Description 08/01/2019 Transcribed Document [facility] [place] [facility] [place] [address] ProviderSonia MD [facility] [place], [place] [address] Social History Tobacco Use Types Packs/Day Years Used Date Smoking Tobacco: Never Assessed Comments Unknown Sex and Gender Information Value Date Recorded Sex Assigned at Not on file Legal Sex Female 1:42 PM CDT Gender Identity Not on file Sexual Orientation Not on file documented as of this encounter Miscellaneous Notes * Cerner Conversion Note - Sonia ProviderMD - 08/01/2019 2:46 PM DAIRY NUTRITION CONSULTANT Patient: SANDIE AMARO Age: 63 Years Sex: [...] Patient medically ready to be discharged to snf facility VTE Prophylaxis - Medical Sequential Compression [...] 1 Supp, Rectal, 1-Time, PRN Flonase, 1 Christopher, Nostrils Both, BID Florastor, 250 mg= 1 [...] No 08/01/2019 03:42 EST Electronically signed by [facility], [facility] Conversion Street And Building Decorator Cerner at 11/19/2022 8:23 PM CDT documented in this encounter Plan of Treatment Not on file documented as of this encounter Visit Diagnoses Not on filedocumented in this encounter
--- OUTSIDE RECORDS SUMMARY | 2025-03-14 10:58 | XMS_ITS | Encounter Summary ---
Author Organization [facility] Address [address] [place] [address] Care Team Providers Care Library Historian Name Role Phone Marc Rodriguez MD Primary Care Provider [phone] Encounter Details Date Type Department Care Team (Late st Contact Info) Description 03/06/2025 Telephone [facility] CARDIOLOGY [address] [facility] [address] [place] [address] Jimmy Duncan MD [address] [facility] [address] [place] [address] Social History Tobacco Use Types Packs/Day Years [...] as of this encounter Progress Notes * Makeda Mahmood RegSched Rep - 03/13/2025 10:19 AM EDTAddended by: MAKEDA MAHMOOD on: 03/13/2025 10:19 AM Modules accepted: Orders * Jai Fisher RegSched Rep - 03/07/2025 9:22 AM EDTAddended by: JAI FISHER on: 03/07/2025 09:22 AM Modules accepted: Orders documented in this encounter Miscellaneous Notes * Telephone Encounter - Megha Chambers MA - 03/06/2025 3:21 PM EDT Faxed orders to [phone] * Telephone Encounter - Keke Aguilar RegSched Rep - 03/06/2025 1:22 PM EDT Caller: Sandie Frank Relationship: Self Best call back number: . Telephone Information: What orders are you requesting (i.e. lab or imaging): LAB ORDERS In what timeframe would the patient need to come in: ASHLEY Where will you receive your lab/imaging services: [facility] Additional notes: PT ASKED IF OFFICE WILL PLEASE FAX LAB ORDERS TO [facility]. PT DOESN'T HAVE FAX NUMBER. documented in this encounter Plan of Treatment Upcoming Encounters Date Type Department Care Team (Late st Contact Info) Description 06/26/2025 9:30 AM EST Procedure visit [facility] PULMONARY & CRITICAL CARE MEDICINE [address] [facility] [place] [address] 06/26/2025 10:00 AM EST Office Visit [facility] PULMONARY & CRITICAL CARE MEDICINE [address] [facility] [place] [address] Kaitlin Joiner APRN [address] [place] [address] 09/12/2025 10:00 AM EST Office Visit [facility] CARDIOLOGY [address] [facility] [address] [place] [address] Jimmy Duncan MD [address] [facility] [address] [place] [address] Scheduled Orders Name Type Priority Associated Diagnoses Orde r Schedule Lipid Panel Lab Routine Hyperlipidemia LDL goal <70 Expected: 03/06/2026 (Approximate), Expires: 06/06/2026 Hepatic Function Panel Lab Routine Hyperlipidemia LDL goal <70 Expected: 03/06/2026 (Approximate), Expires: 06/06/2026 CBC & Differential Lab Panel Routine Essential hypertension Expected: 03/06/2026 (Approximate), Expires: 06/06/2026 Basic Metabolic Panel Lab Routine Essential hypertension Expected: 03/06/2026 (Approximate), Expires: 06/06/2026 documented as of this encounter Visit Diagnoses Diagnosis Hyperlipidemia LDL goal <70- Primary Other and unspecified hyperlipidemia Essential hypertension Unspecified essential hypertension documented in this encounter Care Teams Library Historian Relationship Specialty Start Date End Date Marc Rodriguez MD [address] [facility] [address] [facility] [address] PCP - General Adolescent Medicine 12/08/16 documented as of this encounter
--- OUTSIDE RECORDS SUMMARY | 2025-03-14 10:58 | XMS_ITS | Encounter Summary ---
Author Organization [facility] Address [address] [place] [address] Care Team Providers Care Oil Sales And Service Rep Name Role Phone Marc Rodriguez MD Primary Care Provider [phone] Encounter Details Date Type Department Care Team (Late st Contact Info) Description 12/14/2018 External CPT II MICROSTRATEGY REPORTS DEVELOPER - [employer] Social History Tobacco Use [...] Description 06/26/2025 9:30 AM EST Procedure visit [facility] PULMONARY & CRITICAL CARE MEDICINE [address] [place] [address] 06/26/2025 10:00 AM EST Office Visit [facility] PULMONARY & CRITICAL CARE MEDICINE [address] [place] [address] Kaitlin Joiner, CHIEF LOCK TENDER OPERATOR [address] [place] [address] 09/12/2025 10:00 AM EST Office Visit [facility] CARDIOLOGY [address] [facility] [address] [place] [id number] Jimmy Duncan MD [address] [facility] [address] [place] [address] documented as of this encounter Visit Diagnoses [...] documented as of this encounter Care Teams Oil Sales And Service Rep Relationship Specialty Start Date End Date Marc Rodriguez MD [address] [facility] [address] [facility] [address] PCP - General Adolescent Medicine 12/08/16 documented as of this encounter
--- OUTSIDE RECORDS SUMMARY | 2025-03-14 10:58 | XMS_ITS | Encounter Summary ---
Author Organization [employer] ([place], [place], [place]) Address [address] [place] [address] Care Team Providers Care Internet Network Specialist Name Role Phone Unavailable Primary Care Provider Unavailabl e Encounter Details Date Type Department Care Team (Late st Contact Info) Description 06/21/2020 Transcribed Document [facility] [place] [facility] [place] [address] ProviderSonia MD [address] [place], [place] [address] Social History Tobacco Use Types Packs/Day Years Used Date Smoking Tobacco: Never Assessed Comments Unknown Sex and Gender Information Value Date Recorded Sex Assigned at Not on file Legal Sex Female 1:42 PM CDT Gender Identity Not on file Sexual Orientation Not on file documented as of this encounter Miscellaneous Notes * Cerner Conversion Note - Sonia ProviderMD - 06/21/2020 8:45 AM DRIVER GUARD Neal [facility] PACU Summary Primary Physician: ANIVAL BROWN MD-GAE Finalized Date/Time: 06/21/20 09:43:13 Pt. Name: PREMSANDIE D.O.B./Sex: 1955 Female Med Rec #: [id number] Physician: ANIVAL BROWN MD-GAE Financial #: [id number] Pt. Type: E Room/Bed: [facility]/ Admit/Disch: 06/21/20 06:39:00 - Institution: [facility] PACU Case Times Entry 1 In PACU I 06/21/20 08:55:00 Ready for PACU 06/21/20 09:39:00 Discharge Discharge from PACU 06/21/20 09:40:00 Jeaneth KRAFT Endo PACU Case Times Audit 06/21/20 09:43:13 Alteration Manager: [id number] Modifier: [id number] <+> 1 Ready for PACU Discharge <+> 1 Discharge from PACU I Finalized By: Rosenda Hunter, RN Document Signatures Signed By: Rosenda Hunter RN 06/21/20 09:43 documented in this encounter Plan of Treatment Not on file documented as of this encounter Visit Diagnoses Not on filedocumented in this encounter
--- OUTSIDE RECORDS SUMMARY | 2025-03-14 10:58 | XMS_ITS | Encounter Summary ---
Author Organization [employer] ([place], [place]) Address [address] [place] [address] Care Team Providers Care Program Manager Environmental Planning Name Role Phone Unavailable Primary Care Provider Unavailabl e Encounter Details Date Type Department Care Team (Late st Contact Info) Description 07/23/2019 Transcribed Document [facility] [place] Family Medicine [address] [place] [address] ProviderSonia MD [address] [place], [place] [address] Social History Tobacco Use Types Packs/Day Years Used Date Smoking Tobacco: Never Assessed Comments Unknown Sex and Gender Information Value Date Recorded Sex Assigned at Not on file Legal Sex Female 1:42 PM CDT Gender Identity Not on file Sexual Orientation Not on file documented as of this encounter Miscellaneous Notes * Cerner Conversion Note - Sonia ProviderMD - 07/23/2019 6:00 AM FILE MACHINE OPERATOR Pain Assessment Entered On: 07/23/2019 6:31 EST Performed On: 07/23/2019 6:35 EST by DANTE MASCORRO, Funeral Car Chauffeur-Nursing Intervention Information: acetaminophen Performed by DANTE MASCORRO, Funeral Car Chauffeur-Nursing on 07/23/2019 05:35:00 EST acetaminophen,1000mg Oral Pain Assessment Pain Assessment : Follow-up assessment Pain Scale Used : FACES Pain Intervention, Drug : Medicated Pain Improved by Intervention : Yes DANTE MASCORRO, Funeral Car Chauffeur-Nursing - 07/23/2019 6:30 EST Pain Scale Intensity : 2 DANTE MASCORRO, Funeral Car Chauffeur-Nursing - 07/23/2019 6:30 EST Image 4 - Images currently included in the form version of this document have not been included in the text rendition version of the form. Electronically signed by Interface, Ivelisse Conversion Medical Laboratory Manager Cerner at 11/19/2022 8:42 PM CDT documented in this encounter Plan of Treatment Not on file documented as of this encounter Visit Diagnoses Not on filedocumented in this encounter
--- OUTSIDE RECORDS SUMMARY | 2025-03-14 10:58 | XMS_ITS | Encounter Summary ---
Author Organization [employer] ([place], [place], [place], [place]) Address [address] [place] [address] Care Team Providers Care Manager Of Maintenance Name Role Phone Unavailable Primary Care Provider Unavailabl e Encounter Details Date Type Department Care Team (Late st Contact Info) Description 06/21/2020 Transcribed Document [facility] Family Medicine [facility] [place] [address] ProviderSonia MD [address] [place], [place] [id number] Social History Tobacco Use Types Packs/Day Years Used Date Smoking Tobacco: Never Assessed Comments Unknown Sex and Gender Information Value Date Recorded Sex Assigned at Not on file Legal Sex Female 1:42 PM CDT Gender Identity Not on file Sexual Orientation Not on file documented as of this encounter Miscellaneous Notes * Cerner Conversion Note - Sonia Boogie MD - 06/21/2020 9:01 AM VISE HAND Patient Education Materials Follows: Monitored Anesthesia Care, [...] eating solid foods. General instructions ??? Take qpiu-kun-txmwfgv and prescription medicines only as told by [...] 11/09/2016 Document Revised: 10/18/2018 Document Reviewed: 11/09/2016 WonderHowTo Patient Education ? 2020 WonderHowTo Inc. Hemorrhoids Hemorrhoids are swollen veins that [...] times a day. General instructions ??? Take jwnp-beg-apmtxii and prescription medicines only as told by [...] 04/28/2009 Document Revised: 07/28/2019 Document Reviewed: 12/09/2018 WonderHowTo Patient Education ? 2020 itravel. Colonoscopy, Adult, Care After This sheet gives [...] soft and easy to digest. ??? Take fvep-yso-xzdwshl or prescription medicines only as told by [...] 08/22/2011 Document Revised: 05/20/2018 Document Reviewed: 04/13/2017 ElseVivint Patient Education ? 2020 WonderHowTo Inc. documented in this encounter Plan of Treatment Not on file documented as of this encounter Visit Diagnoses Not on filedocumented in this encounter
--- OUTSIDE RECORDS SUMMARY | 2025-03-14 10:58 | XMS_ITS | Encounter Summary ---
Author Organization [facility] Address [address] [place] [address] Care Team Providers Care Chief Operator Name Role Phone Marc Rodriguez MD Primary Care Provider [phone] Reason for Visit * Reason Onset Date Comments Med Refill 02/10/2025 Encounter Details Date Type Department Care Team (Late st Contact Info) Description 02/10/2025 Telephone [facility] CARDIOLOGY [address] [facility] [address] [place] [phone] Jimmy Goss MD [address] [facility] [address] [address] Med Refill Social History Tobacco Use Types [...] by patient: N/A Best call back number: [phone] Does the patient have less than a 3 day supply: [] Yes [x] No Alis Moore 02/10/25, 09:52 EDT documented in this encounter Plan of Treatment Upcoming Encounters Date Type Department Care Team (Late st Contact Info) Description 06/26/2025 9:30 AM EST Procedure visit [facility] PULMONARY & CRITICAL CARE MEDICINE [address] [place] [address] 06/26/2025 10:00 AM EST Office Visit [facility] PULMONARY & [facility]ITICAL CARE MEDICINE [address] [place] [address] Kaitlin Joiner, CLINICAL REVIEWER [address] [place] [address] 09/12/2025 10:00 AM EST Office Visit [facility] CARDIOLOGY [address] [facility] [address] [place] [address] Jimmy Goss MD [address] [facility] [address] [place] [address] documented as of this encounter Visit Diagnoses Not on filedocumented in this encounter Care Teams Chief Operator Relationship Specialty Start Date End Date Marc Rodriguez MD [address] [facility] [address] [place] [address] PCP - General Adolescent Medicine 12/08/16 documented as of this encounter
--- OUTSIDE RECORDS SUMMARY | 2025-03-14 10:58 | XMS_ITS | Encounter Summary ---
Author Organization [employer] ([place], [place], [place], [place]) Address [address] [place] [address] Care Team Providers Care Dyno Technician Name Role Phone Unavailable Primary Care Provider Unavailabl e Encounter Details Date Type Department Care Team (Late st Contact Info) Description 07/31/2019 Transcribed Document [facility] Family Medicine [address] [place] [address] ProviderSonia MD [address] [place], [place] [address] Social History Tobacco Use Types Packs/Day Years Used Date Smoking Tobacco: Never Assessed Comments Unknown Sex and Gender Information Value Date Recorded Sex Assigned at Not on file Legal Sex Female 1:42 PM CDT Gender Identity Not on file Sexual Orientation Not on file documented as of this encounter Miscellaneous Notes * Cerner Conversion Note - Sonia ProviderMD - 07/31/2019 2:00 PM DISABILITY BENEFITS SPECIALIST Pain Assessment Entered On: 07/31/2019 15:12 EST [...]
--- OUTSIDE RECORDS SUMMARY | 2025-03-14 10:58 | XMS_ITS | Encounter Summary ---
Author Organization [employer] ([place], [place], [place], [place]) Address [address] [place] [address] Care Team Providers Care Distribution Sales Representative Name Role Phone Unavailable Primary Care Provider Unavailabl e Encounter Details Date Type Department Care Team (Late st Contact Info) Description 07/31/2019 Transcribed Document [facility] Radiology [address] [place] [address] Diaz Vega MD [address] [place] [address] [address] [place] [id number] Social History Tobacco Use Types Packs/Day Years [...] hx cataract surgery bilateral / SNOMED CT 5226759598 / Confirmed high blood pressure / SNOMED CT 1606395960 / Confirmed uses Renexa / SNOMED CT 1160032 / Confirmed hx. chest pain / SNOMED CT 1055790410 / Confirmed high cholesterol / SNOMED CT 42807894 / Confirmed hx colon resection secondary decreased function / SNOMED CT 0614137945 / Confirmed chronic diarrhea / SNOMED CT 888839617 / Confirmed GERD / SNOMED CT 553777919 / Confirmed kidney stone right kidney current and hx / SNOMED CT 690725671 / Confirmed hx. frequent UTIs / SNOMED CT 4682469082 / Confirmed restless leg syndrome / SNOMED CT 43423600 / Confirmed chronic back pain / SNOMED CT 191208432 / Confirmed fibromyalgia / SNOMED CT 44809187 / Confirmed rheumatoid arthritis / SNOMED CT 631093957 / Confirmed Hypothyroidism / SNOMED CT 60496821 / Confirmed depression / SNOMED CT 40927957 / Confirmed migraine headaches / SNOMED CT 389435818 / Confirmed peripheral neuropathy / SNOMED CT 36537322 / Confirmed chronic hydrocort use / SNOMED CT 7804674 / Confirmed Adrenal insufficiency / SNOMED CT 2908039810 / Confirmed Arthritis / SNOMED CT 8725999 / Confirmed Aortic valve stenosis / SNOMED CT 302660936 / Confirmed At risk for sleep apnea / IMO 74323761 / Confirmed Glaucoma / SNOMED CT 79519436 / Confirmed Cataracts, both eyes / SNOMED CT 730997662 / Confirmed Osteoporosis / SNOMED CT 906717273 / Confirmed Seasonal allergies / SNOMED CT 0594646673 / Confirmed Asthma / SNOMED CT 754743531 / Confirmed Vitamin D deficiency / SNOMED CT 88719834 / Confirmed Dementia / SNOMED CT 34457159 / Confirmed Chronic kidney disease / SNOMED CT 3777061458 / Confirmed B12 deficiency / SNOMED CT 134715909 / Confirmed Pneumonia / SNOMED CT 545132728 / Confirmed Resolved: Hypotension / SNOMED CT 19191219 Canceled: adrenal insufficiency / SNOMED CT 3221376967 Canceled: Hyperthyroidism / SNOMED CT 85318OSC-[id number], Active Problems (33) Adrenal insufficiency Aortic valve [...] mg, Rectal, 1-Time, PRN: Constipation Flonase: 1 [place], Nostrils Both, BID Florastor: 250 mg, Oral, [...] intl units oral capsule: 1 Cap, Oral, E1Cxret, 0 Refill(s) Dilaudid: pain pump, 0 Refill(s) Flax Seed Oil: 1,200 mg, Oral, BID, 0 Refill(s) Flonase: 1 [place], Nostrils Both, BID Lunesta: 3 mg, Oral, [...] azelastine 205.5 mcg/inh (0.15%) nasal spray: 2 [place], Nasal, BID, PRN: for allergy symptoms, 0 [...] azelastine 205.5 mcg/inh (0.15%) nasal spray 2 [place], PRN, Nasal, BID biotin 5 mg, Oral, [...] 50,000 Int Units = 1 Cap, Oral, [id number] Dilaudid donepezil 23 mg, Oral, Daily famotidine 40 mg, Oral, BID Flax Seed Oil 1,200 mg, Oral, BID Flonase 1 [place], Nostrils Both, BID gabapentin 100 mg oral [...] Oral, QAM fluticasone 0.05% nasal spray 1 [place], Nostrils Both, BID gabapentin 100 mg cap [...] Patient medically ready to be discharged to fdc facility documented in this encounter Plan of Treatment Not on file documented as of this encounter Visit Diagnoses Not on filedocumented in this encounter
--- OUTSIDE RECORDS SUMMARY | 2025-03-14 10:58 | XMS_ITS | Encounter Summary ---
Author Organization [employer] ([place], [place], [place], [place]) Address [address] [place] [address] Care Team Providers Care Natural Gas Plant Supervisor Name Role Phone Unavailable Primary Care Provider Unavailabl e Encounter Details Date Type Department Care Team (Late st Contact Info) Description 07/11/2019 Transcribed Document [facility] [place] [facility] [place] [address] ProviderSonia MD [address] [place] [id number] Social History Tobacco Use Types Packs/Day Years Used Date Smoking Tobacco: Never Assessed Comments Unknown Sex and Gender Information Value Date Recorded Sex Assigned at Not on file Legal Sex Female 1:42 PM CDT Gender Identity Not on file Sexual Orientation Not on file documented as of this encounter Miscellaneous Notes * Cerner Conversion Note - Sonia Boogie MD - 07/11/2019 9:00 AM WHEEL SETTER Orthopedic Nurse Navigator Entered On: 07/11/2019 12:43 EST Performed On: 07/11/2019 9:00 EST by Ana Call Nurse RN Orthopedic Nurse Navigator Assessment Attended Joint Academy : Yes Joint AcademyType : In person Joint Academy Date : 07/11/2019 EST Joint Order Schedule Clerk Attended Academy : Yes Joint Order Schedule Clerk Name : Jose Frank [phone] Type of Surgery : Anterior Hip Replacement, Right Does Patient Have a Walker? : Yes Patient Completed RAPT Score : 8 Joint Navigator Assessment Note : According to the RAPT Score, additional intervention to discharge directly home. Pt indicates leg weakness. Pt indicates she wants OP and [id number]. Ana Call Nurse RN - 07/11/2019 12:38 [...] Call Nurse RN - 07/11/2019 12:38 EST Electronically signed by Ivelisse Camargo Conversion Dehydrogenation Converter Operator Cerner at 11/19/2022 8:45 PM CDT documented in this encounter Plan of Treatment Not on file documented as of this encounter Visit Diagnoses Not on filedocumented in this encounter
--- OUTSIDE RECORDS SUMMARY | 2025-03-14 10:58 | XMS_ITS | Encounter Summary ---
Author Organization [employer] ([place], [place], [place], [place]) Address [address] [place] [address] Care Team Providers Care Supervisor Reactor Fueling Name Role Phone Unavailable Primary Care Provider Unavailabl e Encounter Details Date Type Department Care Team (Late st Contact Info) Description 07/31/2019 Transcribed Document [facility] [place] Medicine [address] [place] [address] ProviderSonia MD [address] [place], [place] [address] Social History Tobacco Use Types Packs/Day Years Used Date Smoking Tobacco: Never Assessed Comments Unknown Sex and Gender Information Value Date Recorded Sex Assigned at Not on file Legal Sex Female 1:42 PM CDT Gender Identity Not on file Sexual Orientation Not on file documented as of this encounter Miscellaneous Notes * Cerner Conversion Note - Sonia ProviderMD - 07/31/2019 2:00 AM CYBER THREAT ANALYST Marketing Support Assistant Details Entered On: 07/31/2019 5:26 EST Performed [...] 07/31/2019 5:26 EST Electronically signed by Raman [facility] Conversion Disc Jockey Cerner at 11/19/2022 8:41 PM CDT documented in this encounter Plan of Treatment Not on file documented as of this encounter Visit Diagnoses Not on filedocumented in this encounter
--- OUTSIDE RECORDS SUMMARY | 2025-03-14 10:58 | XMS_ITS | Encounter Summary ---
Author Organization [employer] ([place], [place], [place], [place]) Address [address] [place] [address] Care Team Providers Care Spray Ii Painter Name Role Phone Unavailable Primary Care Provider Unavailabl e Encounter Details Date Type Department Care Team (Late st Contact Info) Description 07/23/2019 Transcribed Document [facility] [place] [address] [place] [address] ProviderSonia MD [facility] [place], [place] [address] Social History Tobacco Use Types Packs/Day Years Used Date Smoking Tobacco: Never Assessed Comments Unknown Sex and Gender Information Value Date Recorded Sex Assigned at Not on file Legal Sex Female 1:42 PM CDT Gender Identity Not on file Sexual Orientation Not on file documented as of this encounter Miscellaneous Notes * Cerner Conversion Note - Sonia ProviderMD - 07/23/2019 10:00 PM JOB PRESS FEEDER Pain Assessment Entered On: 07/24/2019 2:20 EST [...]
--- OUTSIDE RECORDS SUMMARY | 2025-03-14 10:58 | XMS_ITS | Encounter Summary ---
[facility] Organization [facility] Address [address] [place] [address] Care Team Providers Care Telegraph And Teletype Operator Name Role Phone Marc Rodriguez MD Primary Care Provider [phone] Reason for Visit * Reason Onset Date Comments DR. GOSS - SCHEDULING REQUEST 02/10/2025 Encounter Details Date Type Department Care Team (Late st Contact Info) Description 02/10/2025 Telephone [facility] CARDIOLOGY [address] [facility] [address] [place] [phone] Jimmy Goss MD [address] [facility] [address] [address] DR. GOSS - SCHEDULING REQUEST Social History [...] Rep - 02/10/2025 9:28 AM EDT Caller: ZacSandie Relationship to patient: Self Best call back number: [phone] Type of visit: FOLLOW UP Requested date: [...] Description 06/26/2025 9:30 AM EST Procedure visit [facility] PULMONARY & CRITICAL CARE MEDICINE [address] [place] [address] 06/26/2025 10:00 AM EST Office Visit [facility] PULMONARY & CRITICAL CARE MEDICINE [address] [place] [address] Kaitlin Joiner, MANAGER MUSIC [address] [place] [address] 09/12/2025 10:00 AM EST Office Visit [facility] CARDIOLOGY [address] [facility] [address] [place] [address] Jimmy Goss MD [address] [facility] [address] [place] [address] documented as of this encounter Visit Diagnoses Not on filedocumented in this encounter Care Teams Telegraph And Teletype Operator Relationship Specialty Start Date End Date Marc Rodriguez MD [address] [place] [address] [place] [address] PCP - General Adolescent Medicine 12/08/16 documented as of this encounter
--- OUTSIDE RECORDS SUMMARY | 2025-03-14 10:58 | XMS_ITS | Encounter Summary ---
Author Organization [employer] ([place], [place], [place], [place]) Address [address] [place] [address] Care Team Providers Care Java Programming Professor Name Role Phone Unavailable Primary Care Provider Unavailabl e Encounter Details Date Type Department Care Team (Late st Contact Info) Description 07/31/2019 Transcribed Document [facility] [place] Family Medicine [address] [place] [address] ProviderSonia MD [address] [employer] [address] [employer], [place] [address] Social History Tobacco Use Types Packs/Day Years Used Date Smoking Tobacco: Never Assessed Comments Unknown Sex and Gender Information Value Date Recorded Sex Assigned at Not on file Legal Sex Female 1:42 PM CDT Gender Identity Not on file Sexual Orientation Not on file documented as of this encounter Miscellaneous Notes * Cerner Conversion Note - Sonia ProviderMD - 07/31/2019 10:00 PM REHABILITATION SERVICES AIDE Pain Assessment Entered On: 08/01/2019 4:00 EST [...]
--- OUTSIDE RECORDS SUMMARY | 2025-03-14 10:58 | XMS_ITS | Encounter Summary ---
Author Organization [employer] ([place], [place], [place], [place]) Address [address] [place] [address] Care Team Providers Care Chief Development Officer Name Role Phone Unavailable Primary Care Provider Unavailabl e Encounter Details Date Type Department Care Team (Late st Contact Info) Description 06/21/2020 Transcribed Document [facility] [place] Medicine [facility] [place] [address] ProviderSonia MD [address] [place] [address] Social History Tobacco Use Types Packs/Day [...] Sonia Boogie MD - 06/21/2020 9:01 AM ASSISTANT OPERATOR [address] [address] SANDIE FRANK :1955 Visit Time:06/21/2020 [...] Follow-Up Appointments Follow Up with ANIVAL BROWN MD-VTNeal When Comments See procedure report for instructions. Where: [address] [facility] [address] [place] [address]- [phone] Medications What How Much When Instructions Next [...] 205.5 mcg/ inh (0.15%) nasal spray) 2 Zephyr(s) Nasal Two Times A Day as needed [...] Oral At Bedtime fluticasone nasal (Flonase) 1 Zephyr(s) Nostrils Both Two Times A Day formoterol [...] eating solid foods. General instructions ??? Take sqan-pln-qhntfoo and prescription medicines only as told by [...] 11/09/2016 Document Revised: 10/18/2018 Document Reviewed: 11/09/2016 [employer] Inc. Patient Education ?? 2020 [employer]. Hemorrhoids Hemorrhoids are swollen veins that may [...] times a day. General instructions ??? Take fsim-yey-uumsxib and prescription medicines only as told by [...] 04/28/2009 Document Revised: 07/28/2019 Document Reviewed: 12/09/2018 [employer] Patient Education ?? 2020 [employer]. Colonoscopy, Adult, Care After This sheet gives [...] soft and easy to digest. ??? Take ikav-cfy-crfxbdu or prescription medicines only as told by [...] Reviewed: 04/13/2017 Elsevier Patient Education ?? 2020 Ba[employer]end[employer] Inc. Emergency Awareness and Preventative Care STROKE [...] Assistance with quitting is available by contacting 2-581-BPWP-NOW. This is a free resource providing counseling, support, and referral. Or you may contact your personal physician. [place] Suicide Prevention Lifeline: The National Suicide Prevention [...] was given the opportunity to ask questions. Patient/Family Service Center Director Name: Patient/Family Service Center Director Signature: Relationship to Patient: Clinician/Hospital Family Service Center Director Signature: Date: documented in this encounter Plan of Treatment Not on file documented as of this encounter Visit Diagnoses Not on filedocumented in this encounter
--- OUTSIDE RECORDS SUMMARY | 2025-03-14 10:58 | XMS_ITS | Encounter Summary ---
Author Organization [employer] ([place], [place], [place], [place]) Address [address] [place] [address] Care Team Providers Care Drawing Tender Name Role Phone Unavailable Primary Care Provider Unavailabl e Encounter Details Date Type Department Care Team (Late st Contact Info) Description 07/08/2019 Transcribed Document [facility] [place] [facility] [place] [address] ProviderSonia MD [address] [place] [id number] Social History Tobacco Use Types Packs/Day Years Used Date Smoking Tobacco: Never Assessed Comments Unknown Sex and Gender Information Value Date Recorded Sex Assigned at Not on file Legal Sex Female 1:42 PM CDT Gender Identity Not on file Sexual Orientation Not on file documented as of this encounter Miscellaneous Notes * Cerner Conversion Note - Sonia Boogie MD - 07/08/2019 10:11 AM CASINO SURVEILLANCE OFFICER Patient: SANDIE FRANK Age: 63 Years Sex: Female : 1955 Chief Complaint Right Hip Pain Primary Care Provider LEOPOLDO TEJADA (REF)[facility] History of Present Illness This patient [...] azelastine 205.5 mcg/inh (0.15%) nasal spray 2 [place], PRN, Nasal, BID biotin 5 mg, Oral, [...] 50,000 Int Units = 1 Cap, Oral, [id number] Dilaudid donepezil 23 mg, Oral, Daily famotidine [...]
--- OUTSIDE RECORDS SUMMARY | 2025-03-14 10:58 | XMS_ITS | Encounter Summary ---
Author Organization [employer] ([place], [place], [place], [place]) Address [address] [place] [address] Care Team Providers Care Wire Inspector Name Role Phone Unavailable Primary Care Provider Unavailabl e Encounter Details Date Type Department Care Team (Late st Contact Info) Description 07/23/2019 Transcribed Document [facility] [place] Family Medicine [address] [place] [address] ProviderSonia MD [address] [place], [place] [address] Social History Tobacco Use Types Packs/Day Years Used Date Smoking Tobacco: Never Assessed Comments Unknown Sex and Gender Information Value Date Recorded Sex Assigned at Not on file Legal Sex Female 1:42 PM CDT Gender Identity Not on file Sexual Orientation Not on file documented as of this encounter Miscellaneous Notes * Cerner Conversion Note - Historical ProviderMD - 07/23/2019 2:00 AM WRECKING MECHANIC Starcher And Tenter Range Feeder Details Entered On: 07/23/2019 1:05 EST Performed On: 07/23/2019 2:00 EST by DANTE MASCORRO, Wet Pan Mixer-Nursing Order Details Transport Mode Order Detail : Bed (including specialty) Isolation Precautions Order Detail : Standard Precautions Order Detail : 0 IV Order Detail : 1 Oxygen Order Detail : 1 Nurse Collect Order Detail : 0 Lift/Transfer : Moderate assist Central Line Order Detail : No Room Service : Appropriate Arterial Line : No DANTE MASCORRO, Wet Pan Mixer-Nursing - 07/23/2019 1:05 EST documented in this encounter Plan of Treatment Not on file documented as of this encounter Visit Diagnoses Not on filedocumented in this encounter
--- OUTSIDE RECORDS SUMMARY | 2025-03-14 10:58 | XMS_ITS | Encounter Summary ---
Author Organization [employer] ([place], [place], [place], [place]) Address [address] [place] [address] Care Team Providers Care Air Conditioning Specialist Name Role Phone Unavailable Primary Care Provider Unavailabl e Encounter Details Date Type Department Care Team (Late st Contact Info) Description 07/23/2019 Transcribed Document [facility] [place] [address] [place] [address] ProviderSonia MD [address] [place], [place] [address] Social History Tobacco Use Types Packs/Day Years Used Date Smoking Tobacco: Never Assessed Comments Unknown Sex and Gender Information Value Date Recorded Sex Assigned at Not on file Legal Sex Female 1:42 PM CDT Gender Identity Not on file Sexual Orientation Not on file documented as of this encounter Miscellaneous Notes * Cerner Conversion Note - Historical ProviderMD - 07/23/2019 5:00 AM LAST CLEANER Chart Check - Review Order Profile Entered On: 07/23/2019 5:25 EST Performed On: 07/23/2019 5:00 EST by DANTE MASCORRO, Pulmonary Nurse Practitioner-Nursing Chart Check Powerplans Initiated/Discontinued as Appropriate : Yes All Active Orders Reviewed : Yes DANTE MASCORRO, Pulmonary Nurse Practitioner-Nursing - 07/23/2019 5:25 EST documented in this encounter Plan of Treatment Not on file documented as of this encounter Visit Diagnoses Not on filedocumented in this encounter
--- OUTSIDE RECORDS SUMMARY | 2025-03-14 10:58 | XMS_ITS | Encounter Summary ---
Author Organization [employer] ([place], [place], [place], [place]) Address [address] [place] [address] Care Team Providers Care Support Services Manager Name Role Phone Unavailable Primary Care Provider Unavailabl e Encounter Details Date Type Department Care Team (Late st Contact Info) Description 07/22/2019 Transcribed Document [facility] [place] Family [place] [address] ProviderSonia MD [address] [place], [place] [address] Social History Tobacco Use Types Packs/Day Years Used Date Smoking Tobacco: Never Assessed Comments Unknown Sex and Gender Information Value Date Recorded Sex Assigned at Not on file Legal Sex Female 1:42 PM CDT Gender Identity Not on file Sexual Orientation Not on file documented as of this encounter Miscellaneous Notes * Cerner Conversion Note - Sonia ProviderMD - 07/22/2019 1:27 PM MOLDING MANAGER Treatment Intervention, PT Entered On: 07/27/2019 11:17 [...] : Occupational Therapist Assisted by, PT : boiler service technician/aide Personal Devices : Personal Devices Dentures, [...] NABEEL العراقي, PT - 07/27/2019 11:04 EST Fdc Goals Other PT LTG Grid Goal #1 Goal #2 Goal #3 Goal #4 Other : Pt will participate in therapeutic exercise training and be issued a written HEP in order to increase strength for improved gait and provide carryover into the home environment. Pt will transfer sup/sit and sit/stand with RWx and no more than Ankita to increase safety for mobility at [facility]. Pt will amb at leats 25 feet [...] NABEEL العراقي, PT - 07/27/2019 11:04 EST documented in this encounter Plan of Treatment Not on file documented as of this encounter Visit Diagnoses Not on filedocumented in this encounter
--- OUTSIDE RECORDS SUMMARY | 2025-03-14 10:58 | XMS_ITS | Encounter Summary ---
Author Organization [employer] ([place], [place], [place], [place]) Address [address] [place] [address] Care Team Providers Care Pile Driver Operator Name Role Phone Unavailable Primary Care Provider Unavailabl e Encounter Details Date Type Department Care Team (Late st Contact Info) Description 06/21/2020 Transcribed Document [facility] [place] [address] [place] [address] ProviderSonia MD [address] [place], [place] [address] Social History Tobacco Use Types Packs/Day Years Used Date Smoking Tobacco: Never Assessed Comments Unknown Sex and Gender Information Value Date Recorded Sex Assigned at Not on file Legal Sex Female 1:42 PM CDT Gender Identity Not on file Sexual Orientation Not on file documented as of this encounter Miscellaneous Notes * Cerner Conversion Note - Sonia ProviderMD - 06/21/2020 8:30 AM CERTIFIED DRIVER EXAMINER [facility] PreOp Summary Primary Physician: ANIVAL BROWN MD-GAE Finalized Date/Time: 06/21/20 08:19:35 Pt. Name: PREM SANDIEIsael CastellanoO.B./Sex: 1955 Female Med Rec #: [id number] Physician: ANIVAL BROWN MD-GAE Financial #: [id number] Pt. Type: E Room/Bed: EEN/1 Admit/Disch: 06/21/20 06:39:00 - Institution: [facility] PreOp Case Times Entry 1 In Preop 06/21/20 07:45:00 Ready for Holding n/a Room Patient Ready for 06/21/20 08:19:00 Surgery Patient Out of Preop 06/21/20 08:19:00 Patient Out of n/a Holding Room Finalized By: Ana Lima Rn Document Signatures Signed By: Ana Lima Rn 06/21/20 08:19 Electronically signed by Ivelisse Camargo Conversion Table Cut Off Saw Operator Cerner at 11/19/2022 8:25 PM CDT documented in this encounter Plan of Treatment Not on file documented as of this encounter Visit Diagnoses Not on filedocumented in this encounter
--- OUTSIDE RECORDS SUMMARY | 2025-03-14 10:58 | XMS_ITS | Encounter Summary ---
[facility] Organization [facility] Address [address] [place] [address] Care Team Providers Care Drilling Foreman Name Role Phone Marc Rodriguez MD Primary Care Provider [phone] Reason for Visit * Reason Onset Date Comments DR. GOSS - MARIE ORDERS 03/07/2025 Encounter Details Date Type Department Care Team (Late st Contact Info) Description 03/07/2025 Telephone [facility] [address] [facility] [address] [place] [phone] Jimmy Goss MD [address] [facility] [address] [address] DR. ANA PAULA SALAZAR ORDERS Social History [...] 03/07/2025 9:23 AM EDT FAXED ORDERS TO [facility] @ [phone] * Telephone Encounter - Jono Soler RegSched Rep - 03/07/2025 8:25 AM EDT Caller: Sandie Frank Relationship: Self Best call back number: [phone] What orders are you requesting (i.e. lab or imaging): LAB ORDERS In what timeframe would the patient need to come in: ASHLEY Where will you receive your lab/imaging services: [facility] Additional notes: PT SAYS FACILITY HAS NOT RECEIVED THESE ORDERS YET. PLEASE RESEND THESE ORDERS WHEN AVAILABLE TO [phone]. PLEASE CALL PT AFTER THIS HAS BEEN DONE. documented in this encounter Plan of Treatment Upcoming Encounters Date Type Department Care Team (Late st Contact Info) Description 06/26/2025 9:30 AM EST Procedure visit [facility] [address] [place] [address] 06/26/2025 10:00 AM EST Office Visit [facility] [address] [place] [address] Kaitlin Joiner, FARMWORKER RICE [address] [place] [address] 09/12/2025 10:00 AM EST Office Visit [facility] [address] [facility] [address] [place] [address] Jimmy Goss MD [address] [facility] [address] [place] [address] documented as of this encounter Visit Diagnoses Not on filedocumented in this encounter Care Teams Drilling Foreman Relationship Specialty Start Date End Date Marc Rodriguez MD [address] [facility] [address] [place] [address] PCP - General Adolescent Medicine 12/08/16 documented as of this encounter
--- OUTSIDE RECORDS SUMMARY | 2025-03-14 10:58 | XMS_ITS | Encounter Summary ---
Author Organization [employer] ([place], [place], [place], [place]) Address [address] [place] [address] Care Team Providers Care Senior Private Client Advisor Name Role Phone Unavailable Primary Care Provider Unavailabl e Encounter Details Date Type Department Care Team (Late st Contact Info) Description 06/21/[address] [facility] [place] [facility] [place] [address] ProviderSonia MD [address] [place] [id number] Social History Tobacco Use Types Packs/Day Years Used Date Smoking Tobacco: Never Assessed Comments Unknown Sex and Gender Information Value Date Recorded Sex Assigned at Not on file Legal Sex Female 1:42 PM CDT Gender Identity Not on file Sexual Orientation Not on file documented as of this encounter Miscellaneous Notes * Cerner Conversion Note - Sonia Boogie MD - 06/21/2020 8:45 AM WRAP TURNER SWAPNIL Shin IntraOp Summary Primary Physician: ANIVAL BROWN MD-GAE Finalized Date/Time: 06/21/20 08:52:23 Pt. Name: PHYLLIS FRANK Jovana /Sex: 1955 Female Med Rec #: [id number] Physician: ANIVAL BROWN MD-GAE Financial #: [id number] Pt. Type: E Room/Bed: [facility] [place] Admit/Disch: 06/21/20 06:39:00 - Institution: [facility] [place] Endo - Case Attendance Entry 1 Entry 2 Entry 3 Case Attendee ANIVAL BROWN MD-GAE WHITAKER, CARLY, RIDINGS, JAROLINE, RN RESIDENTIAL ENERGY AUDITOR-ANS Role Performed Surgeon/Proceduralist, RESIDENTIAL ENERGY AUDITOR/Nurse Sports Physiologist Smoking Pipe Coater, First First Time In 06/21/20 08:36:00 06/21/20 08:36:00 06/21/20 08:36:00 Time Out 06/21/20 08:53:00 06/21/20 08:53:00 06/21/20 08:53:00 Procedure Colonoscopy Colonoscopy Colonoscopy Other Attendee Superficial Wound Closed By: Last Modified By: ANGEL BARAHONA, ANGEL TAVERAS, ANGLE TAVERAS RN 06/21/20 08:51:24 06/21/20 08:51:24 06/21/20 08:51:24 Entry 4 Entry 5 Entry 6 Case Attendee ARTURO Pollard, RN ALEJANDRA RODRIGUEZ TECH LITTLE, MIGUEL OSORIO MD-ANS Role Performed Smoking Pipe Coater, Second Scrub, First Anesthesiologist of Record Time In 06/21/20 08:36:00 06/21/20 08:36:00 06/21/20 08:36:00 Time Out 06/21/20 08:53:00 06/21/20 08:53:00 06/21/20 08:53:00 Procedure Colonoscopy Colonoscopy Colonoscopy Other Attendee Superficial Wound Closed By: Last Modified By: ANGEL BARAHONA, ANGEL TAVERAS RN RIDINGS, JAROLINE, RN 06/21/20 08:51:24 06/21/20 08:51:24 06/21/20 08:51:24 [facility] Endo - Case Attendance Audit 06/21/20 08:51:24 Manager Of Enterprise: [id number] Modifier: [id number] 1 <+> Time Out 1 <*> Procedure Colonoscopy 2 <+> Time Out 2 <*> Procedure Colonoscopy 3 <+> Time Out 3 <*> Procedure Colonoscopy 4 <+> Time Out 4 <*> Procedure Colonoscopy 5 <+> Time Out 5 <*> Procedure Colonoscopy 6 <+> Time Out 6 <*> Procedure Colonoscopy 06/21/20 08:47:03 Manager Of Enterprise: [id number] Modifier: [id number] <+> 1 Procedure 2 <+> Time In [...] Endo - Case Times Audit 06/21/20 08:51:21 Manager Of Enterprise: [id number] Modifier: [id number] <+> 1 Out Room Time <+> 1 Stop Time <+> 1 Stop Time 06/21/20 08:46:22 Manager Of Enterprise: [id number] Modifier: [id number] <+> 1 Start Time [facility] Endo - [...] Ablation Abdominal Pressure Last Modified By: ANGEL BARAHNOA RN 06/21/20 08:43:06 [facility] Endo - Fire [...] 06/21/20 08:44:22 [facility] Endo - General Case Plastic Sheets Supervisor 1 Case Information OR Endo 01 [facility] Case Level 1 Room Verified Yes Wound Class III - Contaminated Specialty SN Endovascular Anesthesia Type MAC ASA Class 3 Diagnosis Preop Diagnosis chage in bowel habit Postop Same As Preop No Postop Diagnosis normal post colectomy bowel Last Modified By: ANGEL BARAHONA RN 06/21/20 08:52:07 [facility] Endo - General Case Data Audit 06/21/20 08:52:07 Manager Of Enterprise: [id number] Modifier: [id number] <+> 1 Postop Diagnosis 06/21/20 08:50:45 Manager Of Enterprise: [id number] Modifier: [id number] <+> 1 Specialty <+> 1 ASA Class [...] Endo - Intraoperative Assessment Audit 06/21/20 08:49:55 Manager Of Enterprise: [id number] Modifier: [id number] <+> 1 Prosthetic/Assistive Devices [facility] Endo - Intraoperative Equipment Entry 1 Type [...] Modified By: ANGEL BARAHONA RN 06/21/20 08:46:06 [facility] Endo - Patient Positioning Entry 1 Procedure [...] Modified By: ANGEL BARAHONA RN 06/21/20 08:51:35 [facility] [place] Endo - Surgical Procedures Entry 1 Procedure Colonoscopy Additional WITH BIOPSY Procedure Description Primary Procedure Yes Primary Surgeon ANIVAL BROWN MD-GAE Start 06/21/20 08:45:00 Stop 06/21/20 08:51:00 Anesthesia Type MAC Specialty SN Gastroenterology Wound Class III - Contaminated Last Modified By: ANGEL BARAHONA RN 06/21/20 08:52:14 General Comments: patient has no cecum E Endo - Surgical Procedures Audit 06/21/20 08:52:14 Manager Of Enterprise: [id number] Modifier: [id number] <+> 1 Stop 06/21/20 08:47:59 Manager Of Enterprise: [id number] Modifier: [id number] 1 <*> Procedure Colonoscopy 1 <*> Procedure [...] RN 06/21/20 08:52 Electronically signed by Raman [facility] Conversion Woodwind Instrument Repairer Cerner at 11/19/2022 8:29 PM CDT documented in this encounter Plan of Treatment Not on file documented as of this encounter Visit Diagnoses Not on filedocumented in this encounter
--- OUTSIDE RECORDS SUMMARY | 2025-03-14 10:58 | XMS_ITS | Encounter Summary ---
Author Organization [employer] ([place], [place], [place], [place]) Address [address] [place] [address] Care Team Providers Care Business Support Assistant Name Role Phone Unavailable Primary Care Provider Unavailabl e Encounter Details Date Type Department Care Team (Late st Contact Info) Description 07/11/2019 Transcribed Document [facility] [place] Family Medicine [facility] [place] [address] ProviderSonia MD [address] [place], [place] [address] Social History Tobacco Use Types Packs/Day Years Used Date Smoking Tobacco: Never Assessed Comments Unknown Sex and Gender Information Value Date Recorded Sex Assigned at Not on file Legal Sex Female 1:42 PM CDT Gender Identity Not on file Sexual Orientation Not on file documented as of this encounter Miscellaneous Notes * Cerner Conversion Note - Sonia Boogie MD - 07/11/2019 12:38 PM CENTER MAKER HAND Total Joints Assessment Entered On: 07/11/2019 12:43 EST Performed On: 07/11/2019 12:38 EST by Ana Call Nurse RN HOOS, JR. Hip Survey 1. Going up or down stairs : Severe 2. Walking on an uneven surface : Severe 3. Rising from sitting : Severe 4. Bending to floor/apple picker an object : Severe 5. Lying [...]
--- OUTSIDE RECORDS SUMMARY | 2025-03-14 10:58 | XMS_ITS | Clinical Summary ---
Author Organization [employer] ([place], [place], [place], [place]) Address [address] [place] [address] Care Team Providers Care Stereo Equipment Repairer Name Role Phone Unavailable Primary Care [...]
--- OUTSIDE RECORDS SUMMARY | 2025-03-14 10:58 | XMS_ITS | Encounter Summary ---
Author Organization [employer] ([place], [place], [place], [place]) Address [address] [place] [address] Care Team Providers Care Hoop Riveting Machine Operator Name Role Phone Unavailable Primary Care Provider Unavailabl e Encounter Details Date Type Department Care Team (Late st Contact Info) Description 07/31/2019 Transcribed Document [facility] [place] Family Medicine [address] [place] [address] ProviderSonia MD [address] [place], [place] [address] Social History Tobacco Use Types Packs/Day Years Used Date Smoking Tobacco: Never Assessed Comments Unknown Sex and Gender Information Value Date Recorded Sex Assigned at Not on file Legal Sex Female 1:42 PM CDT Gender Identity Not on file Sexual Orientation Not on file documented as of this encounter Miscellaneous Notes * Cerner Conversion Note - Sonia ProviderMD - 07/31/2019 5:00 AM CHANNEL MACHINE OPERATOR Chart Check - Review Order Profile Entered On: 07/31/2019 5:27 EST Performed On: 07/31/2019 5:00 EST by Cathie Lundy RN Chart Check Powerplans Initiated/Discontinued as Appropriate : Yes All Active Orders Reviewed : Yes Cathie Lundy RN - 07/31/2019 5:27 EST documented in this encounter Plan of Treatment Not on file documented as of this encounter Visit Diagnoses Not on filedocumented in this encounter
--- OUTSIDE RECORDS SUMMARY | 2025-03-14 10:58 | XMS_ITS | Encounter Summary ---
Author Organization [employer] ([place], [place], [place], [place]) Address [address] [place] [address] Care Team Providers Care Solar Sales Energy Advisor Name Role Phone Unavailable Primary Care Provider Unavailabl e Encounter Details Date Type Department Care Team (Late st Contact Info) Description 07/11/2019 Transcribed Document [facility] [place] Family Medicine [address] [place] [address] ProviderSonia MD [address] [place] [address] Social History Tobacco Use Types Packs/Day Years Used Date Smoking Tobacco: Never Assessed Comments Unknown Sex and Gender Information Value Date Recorded Sex Assigned at Not on file Legal Sex Female 1:42 PM CDT Gender Identity Not on file Sexual Orientation Not on file documented as of this encounter Miscellaneous Notes * Cerner Conversion Note - Sonia ProviderMD - 07/11/2019 12:58 PM MANAGER PERFORMANCE IMPROVEMENT Orthopedic Nurse Navigator Entered On: 07/11/2019 12:58 EST Performed On: 07/11/2019 12:58 EST by Ana Call, Nurse product architect Nurse Navigator Assessment Joint Navigator Assessment Note : Pt mentioned she spoke with about possible rehab. Ana Call Nurse RN - 07/11/2019 12:58 EST documented in this encounter Plan of Treatment Not on file documented as of this encounter Visit Diagnoses Not on filedocumented in this encounter
--- OUTSIDE RECORDS SUMMARY | 2025-03-14 10:58 | XMS_ITS | Encounter Summary ---
Author Organization [employer] ([place], [place], [place], [place]) Address [address] [place] [address] Care Team Providers Care Director Client Name Role Phone Unavailable Primary Care Provider Unavailabl e Encounter Details Date Type Department Care Team (Late st Contact Info) Description 07/23/2019 Transcribed Document [facility] Radiology [address] [place] [address] Travis Robles MD [address] [place], [place] [address] Social History Tobacco Use Types Packs/Day Years [...] physical therapy with the , nurse, case liner all the bedside. She look like she is about to fallout ofthe bed. The patient's was asking about taking her home. He wanted to know if Dr. Patrick Knutson M.D. with orthopedic surgery actually goes to see patients at the [facility] That he does not go to the [facility] although 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 Physical therapy strongly agreed that he needs to go to inpatient rehabilitation either [place] are at the [facility]. No fevers or chills. No nausea vomiting. [...] list: Medical Adrenal insufficiency / SNOMED CT 6060977464 / Confirmed Aortic valve stenosis / SNOMED CT 565158400 / Confirmed Arthritis / SNOMED CT 4535821 / Confirmed Asthma / SNOMED CT 608403191 / Confirmed At risk for sleep apnea / IMO 24648371 / Confirmed Cataracts, both eyes / SNOMED CT 216147073 / Confirmed chronic back pain / SNOMED CT 858008561 / Confirmed chronic diarrhea / SNOMED CT 996189633 / Confirmed Chronic kidney disease / SNOMED CT 8700341572 / Confirmed B12 deficiency / SNOMED CT 516591330 / Confirmed Dementia / SNOMED CT 29498868 / Confirmed depression / SNOMED CT 30951089 / Confirmed uses Renexa / SNOMED CT 1257153 / Confirmed chronic hydrocort use / SNOMED CT 5566462 / Confirmed peripheral neuropathy / SNOMED CT 75948206 / Confirmed GERD / SNOMED CT 094235653 / Confirmed fibromyalgia / SNOMED CT 46253227 / Confirmed Glaucoma / SNOMED CT 12406642 / Confirmed migraine headaches / SNOMED CT 696897867 / Confirmed hx cataract surgery bilateral / SNOMED CT 4592515384 / Confirmed hx. chest pain / SNOMED CT 9617279928 / Confirmed hx colon resection secondary decreased function / SNOMED CT 3013371585 / Confirmed hx. frequent UTIs / SNOMED CT 9808623626 / Confirmed high cholesterol / SNOMED CT 86423823 / Confirmed high blood pressure / SNOMED CT 6556195219 / Confirmed Hypothyroidism / SNOMED CT 58643813 / Confirmed kidney stone right kidney current and hx / SNOMED CT 772785857 / Confirmed Osteoporosis / SNOMED CT 015841303 / Confirmed Pneumonia / SNOMED CT 030797793 / Confirmed restless leg syndrome / SNOMED CT 80046231 / Confirmed rheumatoid arthritis / SNOMED CT 672597142 / Confirmed Seasonal allergies / SNOMED CT 5744985696 / Confirmed Vitamin D deficiency / SNOMED CT 90770408 / Confirmed Resolved: Hypotension / SNOMED CT 78467878 Canceled: adrenal insufficiency / SNOMED CT 5334184529 Canceled: Hyperthyroidism / SNOMED CT 06594ILG-[id number], Active Problems (33) Adrenal insufficiency Aortic valve [...] azelastine 137 mcg/inh (0.1%) nasal spray: 2 [place], Nasal, BID, PRN: Allergies budesonide: 0.5 mg, [...] intl units oral capsule: 1 Cap, Oral, V8Bodax, 0 Refill(s) Dilaudid: pain pump, 0 Refill(s) Flax Seed Oil: 1,200 mg, Oral, BID, 0 Refill(s) Flonase: 1 [place], Nostrils Both, BID Lunesta: 3 mg, Oral, [...] azelastine 205.5 mcg/inh (0.15%) nasal spray: 2 [place], Nasal, BID, PRN: for allergy symptoms, 0 [...] azelastine 205.5 mcg/inh (0.15%) nasal spray 2 [place], PRN, Nasal, BID biotin 5 mg, Oral, [...] 50,000 Int Units = 1 Cap, Oral, T0Mapgk Dilaudid donepezil 23 mg, Oral, Daily famotidine 40 mg, Oral, BID Flax Seed Oil 1,200 mg, Oral, BID Flonase 1 [place], Nostrils Both, BID gabapentin 100 mg oral [...] azelastine 137 mcg/spray nasal 30 mL 2 [place], Nasal, BID bisacodyl 10 mg supp 10 [...] EST Height Source Stated Height Entry Format [place] Height/Length, IVORIAN (ft) 5 ft Height/Length IVORIAN 7 Inch CLINICALHEIGHT 170.18 cm [place] Body Weight 61 kg Weight Source Standing scale Weight Entry Format [place] Weight Uzbek lb 230 lb CLINICALWEIGHT 104.55 kg Body Surface Area (BSA) 2.15 m2 Body Mass Index 36.1 kg/m2 [place] 07/22/2019 6:29 EST Height Source Stated Height Entry Format [place] Height/Length, IVORIAN (ft) 5 ft Height/Length IVORIAN 7 Inch CLINICALHEIGHT 170.18 cm [place] Body Weight 61 kg Weight Source Standing scale Weight Entry Format [place] Weight Uzbek lb 230 lb CLINICALWEIGHT 104.55 kg Body [...] obese and debilitated, her , nurse, case liner THE bedside. The really voiced some interest [...] likely need it. Hemoglobin 9.5, creatinine 0.9. meinKauf dictation system used. Computer program makes numerous spelling grammar mistakes. If you have any questions or concerns do not hesitate call Dr. Travis Lux at cell phone number [phone]. documented in this encounter Plan of Treatment Not on file documented as of this encounter Visit Diagnoses Not on filedocumented in this encounter
--- OUTSIDE RECORDS SUMMARY | 2025-03-14 10:58 | XMS_ITS | Encounter Summary ---
Author Organization [facility] ([place], [place], [place], [place]) Address [address] [place] [address] Care Team Providers Care Tile And Marble Setter Name Role Phone Unavailable Primary Care Provider Unavailabl e Encounter Details Date Type Department Care Team (Late st Contact Info) Description 06/21/2020 Transcribed Document [facility] [place] Family Medicine [facility] [address] ProviderSonia MD [facility] [place], [place] [address] Social History Tobacco Use Types Packs/Day Years Used Date Smoking Tobacco: Never Assessed Comments Unknown Sex and Gender Information Value Date Recorded Sex Assigned at Not on file Legal Sex Female 1:42 PM CDT Gender Identity Not on file Sexual Orientation Not on file documented as of this encounter Miscellaneous Notes * Cerner Conversion Note - Sonia ProviderMD - 06/21/2020 8:03 AM DIRECT MARKETING REPRESENTATIVE Pre Procedure Adult Entered On: 06/21/2020 8:11 EST Performed On: 06/21/2020 8:03 EST by Ana Lima Rn Height and Weight, Clinical Dosing Height Source : Stated Height Entry Format : [place] Height, Feet : 5 ft(Converted to: 152 cm, 60 Inch) Height, Inches : 7 Inch(Converted to: 0 ft 7 Inch, 17.78 cm) Clinical Height : 170.18 cm Weight Source : Standing scale Weight Entry Format : [place] Clinical Dosing Weight : 86.82 kg Weight, Pounds : 191 lb Body Surface Area (BSA) : 1.98 m2 Body Mass Index : 30 kg/m2 (HI) [place] Body Weight : 61 kg Ana Lima [...] Ana Lima Rn - 06/21/2020 8:03 EST [place] Suicide Severity Rating Scale (C-SSRS) CSSRS Past [...] Sandie Legal Guardian : No Support Person/Patient Rn Document Improvement Specialist : Yes Support Person/Pt Rep Name : spouse Jose Frank Contact Password : [email or web address] Support Person/Pt Rep Contact Information : [phone] Want Family/Rep/Phys Notified of Admit : Yes Name/Contact Info Fam/Rep Notified Adm : Ronny Frank (spouse) Name/Contact Info Physician Notified Adm : Marc Rodriguez Emergency Contact #1 : Ronny Frank Emergency Contact #1 Emergency Contact #1 Relationship : spouse Emergency Contact #2 : . Emergency Contact #2 Phone Number : . Emergency Contact #2 Relationship : . Primary Language : Slovenian Preferred Communication Mode : Verbal Communication Barrier : None Meeting Manager Needed : No Ana Lima Rn - [...] Scale Risk Level : 0-24 Low Risk [place] Fall Interventions : Bed in low position, [...]
--- OUTSIDE RECORDS SUMMARY | 2025-03-14 10:58 | XMS_ITS | Encounter Summary ---
Author Organization [employer] ([place], [place], [place], [place]) Address [address] [place] [address] Care Team Providers Care Estate Agent Name Role Phone Unavailable Primary Care Provider Unavailabl e Encounter Details Date Type Department Care Team (Late st Contact Info) Description 08/01/2019 Transcribed Document [facility] [address] [place] [address] ProviderSonia MD [address] [place], [place] [address] Social History Tobacco Use Types Packs/Day Years Used Date Smoking Tobacco: Never Assessed Comments Unknown Sex and Gender Information Value Date Recorded Sex Assigned at Not on file Legal Sex Female 1:42 PM CDT Gender Identity Not on file Sexual Orientation Not on file documented as of this encounter Miscellaneous Notes * Cerner Conversion Note - Sonia ProviderMD - 08/01/2019 5:00 AM LIFE UNDERWRITER Chart Check - Review Order Profile Entered On: 08/01/2019 4:02 EST Performed On: 08/01/2019 5:00 EST by Cathie Lundy RN Chart Check Powerplans Initiated/Discontinued as Appropriate : Yes All Active Orders Reviewed : Yes Cathie Lundy RN - 08/01/2019 4:02 EST Electronically signed by Ivelisse Camargo Conversion X Ray Developing Machine Operator Cerner at 11/19/2022 8:23 PM CDT documented in this encounter Plan of Treatment Not on file documented as of this encounter Visit Diagnoses Not on filedocumented in this encounter
--- OUTSIDE RECORDS SUMMARY | 2025-03-14 10:58 | XMS_ITS | Encounter Summary ---
Author Organization [employer] ([place], [place], [place], [place]) Address [address] [place] [address] Care Team Providers Care Registration Scheduling Specialist Name Role Phone Unavailable Primary Care Provider Unavailabl e Encounter Details Date Type Department Care Team (Late st Contact Info) Description 07/23/2019 Transcribed Document [facility] Family Medicine [address] [place] [address] ProviderSonia MD [facility] [place], [place] [address] Social History Tobacco Use Types Packs/Day Years Used Date Smoking Tobacco: Never Assessed Comments Unknown Sex and Gender Information Value Date Recorded Sex Assigned at Not on file Legal Sex Female 1:42 PM CDT Gender Identity Not on file Sexual Orientation Not on file documented as of this encounter Miscellaneous Notes * Cerner Conversion Note - Sonia ProviderMD - 07/23/2019 5:06 AM IP LITIGATION PARALEGAL Pain Assessment Entered On: 08/01/2019 4:02 EST [...]
--- OUTSIDE RECORDS SUMMARY | 2025-03-14 10:58 | XMS_ITS | Encounter Summary ---
Author Organization [facility] Address [address] [place] [address] Care Team Providers Care Area Representative Name Role Phone Marc Rodriguez MD Primary Care Provider [phone] Encounter Details Date Type Department Care Team (Late st Contact Info) Description 02/10/2025 Telephone [facility] CARDIOLOGY [address] [facility] [address] [address] Jimmy Duncan MD [address] [facility] [address] [place] [address] Social History Tobacco Use Types Packs/Day Years [...] Description 06/26/2025 9:30 AM EST Procedure visit [facility] PULMONARY & CRITICAL CARE MEDICINE [address] [place] [address] 06/26/2025 10:00 AM EST Office Visit [facility] PULMONARY & CRITICAL CARE MEDICINE [address] [place] [address] Kaitlin Joiner, TITLE I INSTRUCTIONAL ASSISTANT [address] [place] [address] 09/12/2025 10:00 AM EST Office Visit [facility] CARDIOLOGY [address] [facility] [address] [place] [id number] Jimmy Duncan MD [address] [facility] [address] [place] [address] documented as of this encounter Visit Diagnoses Not on filedocumented in this encounter Care Teams Area Representative Relationship Specialty Start Date End Date Marc Rodriguez MD [address] [facility] [address] [facility] [address] [place] [address] PCP - General Adolescent Medicine 12/08/16 documented as of this encounter
--- OUTSIDE RECORDS SUMMARY | 2025-03-14 10:59 | XMS_ITS | Encounter Summary ---
Author Organization [employer] ([place], [place], [place], [place]) Address [address] [place] [address] Care Team Providers Care Primer Waterproofing Machine Adjuster Name Role Phone Unavailable Primary Care Provider Unavailabl e Encounter Details Date Type Department Care Team (Late st Contact Info) Description 08/02/2019 Transcribed Document [facility] Family Medicine [facility] [place] [address] ProviderSonia MD [address] [place] [id number] Social History Tobacco Use Types Packs/Day Years Used Date Smoking Tobacco: Never Assessed Comments Unknown Sex and Gender Information Value Date Recorded Sex Assigned at Not on file Legal Sex Female 1:42 PM CDT Gender Identity Not on file Sexual Orientation Not on file documented as of this encounter Miscellaneous Notes * Cerner Conversion Note - Sonia ProviderMD - 08/02/2019 1:27 PM PLATE GRINDER Discharge Summary, PT Entered On: 08/02/2019 13:29 EST Performed On: 08/02/2019 13:27 EST by SUE HERNANDEZ PTA Discharge Summary Reason for Discharge : Discharged from hospital Discharged to, Therapy : Unit, rehabilitation SUE HERNANDEZ PTA - 08/02/2019 13:27 EST Discharge Summary Comment, PT : Patient will discharge tp rehab facility follow up from [facility] on 08/02/19 having met 1/3 acute [...] MAKEDA ANN, PT - 08/02/2019 14:04 EST Catapult And Arresting Gear Officer Goals Other PT LTG Grid Goal #1 [...] increase safety for mobility at acute care NE. Pt will amb at leats 25 feet [...] being d/c home with family SUE HERNANDEZ, AUDIOLOGY TECHNICIAN - 08/02/2019 13:27 EST SUE HERNANDEZ, AUDIOLOGY TECHNICIAN - 08/02/2019 13:27 EST SUE HERNANDEZ, AUDIOLOGY TECHNICIAN - 08/02/2019 13:27 EST SUE HERNANDEZ, AUDIOLOGY TECHNICIAN - 08/02/2019 13:27 EST documented in this encounter Plan of Treatment Not on file documented as of this encounter Visit Diagnoses Not on filedocumented in this encounter
--- OUTSIDE RECORDS SUMMARY | 2025-03-14 10:59 | XMS_ITS | Encounter Summary ---
Author Organization [employer] ([place], [place], [place], [place]) Address [address] [place] [address] Care Team Providers Care Credit Union Manager Name Role Phone Unavailable Primary Care Provider Unavailabl e Encounter Details Date Type Department Care Team (Late st Contact Info) Description 07/22/2019 Transcribed Document [facility] Family Medicine [address] [place] [address] ProviderSonia MD [address] [place], [place] [address] Social History Tobacco Use Types Packs/Day Years Used Date Smoking Tobacco: Never Assessed Comments Unknown Sex and Gender Information Value Date Recorded Sex Assigned at Not on file Legal Sex Female 1:42 PM CDT Gender Identity Not on file Sexual Orientation Not on file documented as of this encounter Miscellaneous Notes * Cerner Conversion Note - Sonia Boogie MD - 07/22/2019 2:31 PM FAMILY SERVICE COUNSELOR Initial Discharge Planning Entered On: 07/22/2019 14:43 EST Performed On: 07/22/2019 14:31 EST by RAKEL WOODRUFF SW Initial Assessment I Previously Documented Living Environment : No qualifying data available. Living Situation : Home Patient Lives With : Spouse Emergency Contact #1 : Joes Emergency Contact # Emergency Contact #1 Relationship : spouse Emergency Contact #2 : -Angeline Emergency Contact #2 Phone Number : [phone] Emergency Contact #2 Relationship : -daughter Enter [...] 07/25/2019 EST Anticipated Discharge To, CM : [facility] facility Current Home Treatment/Equipment : Current Home Treatment/Equipment No qualifying data available. Post Acute/Home Treatments : None Documentation Status Complete : Yes RAKEL WOODRUFFRINKU - 07/22/2019 14:31 EST Discharge Needs II Professional Skilled Services : Professional Skilled Services No qualifying data available. Needs Assistance with Transportation : Maybe Discharge Options Discussed with Patient : [facility], Home Health, Short term rehabilitation RAKEL WOODRUFFRINKU - 07/22/2019 14:31 EST Narrative Note Narrative Note : Met with pt and spouse to assess d/c needs. pt is 63 yo female who resides in [place] with spouse. Pt has Right Total Knee Surgery this morning with Dr. Ramos. Spouse request SNF placement at D/C and states they were receommended by to go to the [facility]. They also have been to [facility] in the past and were pleased and would consider them as well. Pt has seen pt today and has also recommended SNF. Spouse states they will do outpatient PT after SNF placement. Spouse reports pt has Cane, Walker, Wheelchair at home. Will make referrals to [facility] and [facility] for SNF placement in [facility]. Pt has Medicare primary and would require 3 night stay. RAKEL WOODRUFFRINKU - 07/22/2019 14:31 EST documented in this encounter Plan of Treatment Not on file documented as of this encounter Visit Diagnoses Not on filedocumented in this encounter
--- OUTSIDE RECORDS SUMMARY | 2025-03-14 10:59 | XMS_ITS | Encounter Summary ---
Author Organization [facility] Address [address] [place] [address] Care Team Providers Care Beef Specialist Name Role Phone Marc Rodriguez MD Primary Care Provider [phone] Edgardo Zuñiga MD Unavailable [phone] Giulia Briggs Unavailable [phone] Edgardo Zuñiga MD Unavailable [phone] Esther Mathew Unavailable [phone] Reason for Visit * Reason Onset Date Comments Med Refill 07/05/2024 Encounter Details Date Type Department Care Team (Late st Contact Info) Description 07/05/2024 [facility]ill [facility] [address] [place] [address] Esther Mathew PA [address] [place] [address] Social History Tobacco Use Types [...] the past 12 months has th e ethority, gas, oil, or water company threatened to [...] Visit Physical [facility] at [facility] [address] [place] [address] Suzan Galindo DO [address] [place] [address] 03/07/2026 9:20 AM EDT Office Visit [facility] [address] [place] [address] Edgardo Zuñiga MD [address] [place] [address] documented as of this encounter Visit Diagnoses Not on filedocumented in this encounter Additional Health Concerns Assessment Noted Time PHQ-9 Depression Total Score: 0 07/05/20 10:01 AM EST A fall risk assessment has been complete d for the patient 07/05/2024 10:01 AM EST A Body Mass Index follow-up plan has been documented for the patient 07/05/2024 11:09 AM EST documented as of this encounter Care Teams Beef Specialist Relationship Specialty Start Date End Date Marc Rodriguez MD [address] [place] [address] PCP - General 12/14/20 Edgardo Zuñiga MD [address] [place] [address] Surgeon Neurosurgery 03/04/21 Giulia Briggs PA [address] [place] [address] Physician Cosmetology Instructor Neurosurgery 07/03/21 Edgardo Zuñiga MD [address] [place] [address] Surgeon Neurosurgery 09/16/21 Esther Mathew PA [address] [place] [address] Physician Cosmetology Instructor Neurology 11/19/22 documented as of this encounter
--- OUTSIDE RECORDS SUMMARY | 2025-03-14 10:59 | XMS_ITS | Encounter Summary ---
Author Organization [facility] Address [address] [place] [address] Care Team Providers Care Glycerin Operator Name Role Phone Marc Rodriguez MD Primary Care Provider [phone] Encounter Details Date Type Department Care Team (Late st Contact Info) Description 07/31/2015 External CPT II BOBBIN COIL WINDER - [facility] Social History Tobacco Use [...] 9:30 AM EST Procedure visit [facility] PULMONARY & CRITICAL CARE MEDICINE [address] [place] [address] 06/26/2025 10:00 AM EST Office Visit [facility] PULMONARY & CRITICAL CARE MEDICINE [address] [place] [address] Kaitlin Joiner, DIPPER CLOCK AND WATCH HANDS [address] [place] [address] 09/12/2025 10:00 AM EST Office Visit [facility]ARDIOLOGY [address] [facility] [place] [address] Jimmy Duncan MD [address] [facility] [address] [place] [address] documented as of this encounter Visit Diagnoses [...] documented as of this encounter Care Teams Glycerin Operator Relationship Specialty Start Date End Date Marc Rodriguez MD [address] [facility] [address] [place] [address] PCP - General Adolescent Medicine 12/08/16 documented as of this encounter
--- OUTSIDE RECORDS SUMMARY | 2025-03-14 10:59 | XMS_ITS | Clinical Summary ---
Author Organization [facility] Address [address] [facility] [address] [place] [address] Phone Care Team Providers Care Loom Technician Name Role Phone Rodrigo Avelar MD. Unavailable [phone] Conditions or Problems No information available. Medications No information available. Medications Administered No information available. Allergies, Adverse Reactions, Alerts No information available. Results No information available. Plan of Care No information available. Procedures No information available. Vital Signs No information available. Immunizations No information available. Advance Directives No information available.
--- OUTSIDE RECORDS SUMMARY | 2025-03-14 10:59 | XMS_ITS | Encounter Summary ---
Author Organization [employer] ([place], [place], [place], [place]) Address [address] [place] [address] Care Team Providers Care Aerial Planting And Cultivation Manager Name Role Phone Unavailable Primary Care Provider Unavailabl e Encounter Details Date Type Department Care Team (Late st Contact Info) Description 08/02/2019 Transcribed Document [facility] Family Medicine [address] [place] [address] ProviderSonia MD [address] [place], [place] [address] Social History Tobacco Use Types Packs/Day Years Used Date Smoking Tobacco: Never Assessed Comments Unknown Sex and Gender Information Value Date Recorded Sex Assigned at Not on file Legal Sex Female 1:42 PM CDT Gender Identity Not on file Sexual Orientation Not on file documented as of this encounter Miscellaneous Notes * Cerner Conversion Note - Sonia ProviderMD - 08/02/2019 12:55 PM BOARDING HOUSE COOK Nursing Discharge Summary Entered On: 08/02/2019 12:56 EST Performed On: 08/02/2019 12:55 EST by Aimee Willis RN Discharge Documentation Patient Disposition, General : Discharge Discharge To : Other: [facility] Mode Of Departure, General Discharge : Private [...] 08/02/2019 12:55 EST Electronically signed by Raman [facility] Conversion Entry Level Account Executive Cerner at 11/19/2022 8:39 PM CDT documented in this encounter Plan of Treatment Not on file documented as of this encounter Visit Diagnoses Not on filedocumented in this encounter
--- OUTSIDE RECORDS SUMMARY | 2025-03-14 10:59 | XMS_ITS | Encounter Summary ---
Author Organization [facility] Address [address] [place] [address] Care Team Providers Care Photo Lab Technician Name Role Phone Marc Rodriguez MD Primary Care Provider [phone] Encounter Details Date Type Department Care Team (Late st Contact Info) Description 06/18/2016 External CPT II CLIENT SUPPORT REPRESENTATIVE - [facility] Social History Tobacco [...] 06/26/2025 9:30 AM EST Procedure visit [facility] PULMONARY & CRITICAL CARE MEDICINE [address] [place] [address] 06/26/2025 10:00 AM EST Office Visit [facility] PULMONARY & CRITICAL CARE MEDICINE [address] [place] [address] Kaitlin Joiner APRN [address] [place] [address] 09/12/2025 10:00 AM EST Office Visit [facility] CARDIOLOGY [address] [facility] [address] [place] [address] Jimmy Duncan MD [address] [facility] [address] [place] [address] documented as of this encounter Visit Diagnoses [...] documented as of this encounter Care Teams Photo Lab Technician Relationship Specialty Start Date End Date Marc Rodriguez MD [address] [facility] [address] [place] [address] PCP - General Adolescent Medicine 12/08/16 documented as of this encounter
--- OUTSIDE RECORDS SUMMARY | 2025-03-14 10:59 | XMS_ITS | Encounter Summary ---
Author Organization [employer] ([place], [place], [place], [place]) Address [address] [place] [address] Care Team Providers Care Parking Station Attendant Name Role Phone Unavailable Primary Care Provider Unavailabl e Encounter Details Date Type Department Care Team (Late st Contact Info) Description 08/02/2019 Transcribed Document [facility] [place] Family Medicine [facility] [place] [address] ProviderSonia MD [address] [place] [address] Social History Tobacco Use Types Packs/Day Years Used Date Smoking Tobacco: Never Assessed Comments Unknown Sex and Gender Information Value Date Recorded Sex Assigned at Not on file Legal Sex Female 1:42 PM CDT Gender Identity Not on file Sexual Orientation Not on file documented as of this encounter Miscellaneous Notes * Cerner Conversion Note - Sonia Boogie MD - 08/02/2019 12:03 PM SAND CUTTING MACHINE OPERATOR [address] , [place] [address] Patient Copy Patient Information: Name: SANDIE FRANK Current Date: 08/02/2019 12:03:10 : 1955 Patient Address: [address] [place] [address] [address] SOL[address] MAXIMILIANO [address] Patient Attending Physician: IRINEO DECKER MD Primary Care Provider: LEOPOLDO TEJADA (REF)[facility] Primary Care Provider Discharge Diagnosis: Weight on Admission: 230 lb, 0 oz Comment: Follow-up Instructions: With: Address: When: PEE VILLAR MD-ORT [address] [place] [address] 11:15 AM Comments: Appointment has been made [...] (azelastine 205.5 mcg/inh (0.15%) nasal spray) 2 [place](s) Nasal Two Times A Day as needed [...] Times A Day. fluticasone nasal (Flonase) 1 [place](s) Nostrils Both Two Times A Day. formoterol [...] Barley. Bulgur wheat. Millet. Bran muffins. Popcorn. Perry wafer crackers. Vegetables Sweet potatoes. Spinach. Kale. Artichokes. Cabbage. Broccoli. Green peas. Carrots. Squash. Fruits Berries. Pears. Apples. Oranges. Avocados. Prunes and raisins. Dried figs. Meats and Other Protein Sources Aztec, kidney, roland, and soy beans. Split peas. [...] lolis has 11 g of protein. ?? Lancaster seeds ??? 1 oz has 5.5 g [...] floor. ?? Place frequently used items in olwk-gk-bljto places ?? Keep electrical cables out of [...] ?? Using the bathroom. ?? Using household eradicator or toxic chemicals. ?? Touching or taking [...] extended-release form of this medicine is for sekmys-xly-ifmsw treatment of pain. This form of tramadol [...] against the law. Stop taking all other btnzrq-qhs-xwusq narcotic pain medications when you start taking [...] may report side effects to FDA at 5-900-OAA-1370. What other drugs will affect tramadol? You [...] may affect tramadol. This includes prescription and wlcv-dta-hxjkqgm medicines, vitamins, and herbal products. Not all [...] to ensure that the information provided by [employer]. ('[employer]') is accurate, up-to-date, and complete, but no guarantee is made to that effect. Drug information contained herein may be time sensitive. [employer] information has been compiled for use by healthcare practitioners and consumers in the [place] and therefore [employer] does not warrant that uses outside of the [place] are appropriate, unless specifically indicated otherwise. [employer] drug information does not endorse drugs, diagnose patients or recommend therapy. [employer] drug information is an informational resource designed [...] for any given patient. [facility] does not assume any responsibility for any aspect of healthcare administered with the aid of information [employer] provides. The information contained herein is not intended to cover all possible uses, directions, precautions, warnings, drug interactions, allergic reactions, or adverse effects. If you have questions about the drugs you are taking, check with your doctor, nurse or pharmacist. Copyright 1859-5557 [employer]. Version: 20.02. Revision Date: 05/16/2019. oxycodone (ox [...] The extended-release form of oxycodone is for nxjyrq-bdj-quiba treatment of pain and should not be [...] against the law. Stop taking all other zucwfm-lwa-kfxyg narcotic pain medicines when you start taking [...] may report side effects to FDA at 5-951-ANY-2187. What other drugs will affect oxycodone? You [...] may affect oxycodone. This includes prescription and mdru-upt-gxgeufa medicines, vitamins, and herbal products. Not all [...] to ensure that the information provided by [employer]. ('[employer]') is accurate, up-to-date, and complete, but no guarantee is made to that effect. Drug information contained herein may be time sensitive. [employer] information has been compiled for use by healthcare practitioners and consumers in the [place] and therefore [employer] does not warrant that uses outside of the [place] are appropriate, unless specifically indicated otherwise. [employer]'s drug information does not endorse drugs, diagnose patients or recommend therapy. [employer] drug information is an informational resource designed [...] effective or appropriate for any given patient. [employer] does not assume any responsibility for any aspect of healthcare administered with the aid of information [employer] provides. The information contained herein is not intended to cover all possible uses, directions, precautions, warnings, drug interactions, allergic reactions, or adverse effects. If you have questions about the drugs you are taking, check with your doctor, nurse or pharmacist. Copyright 1280-1134 [employer]. Version: 13.03. Revision Date: 05/16/2019. hydromorphone (oral) [...] extended-release form of this medicine is for ytxuuo-zes-johnm treatment of moderate to severe pain, not [...] against the law. Stop taking all other ydpktb-iai-egerz narcotic pain medications when you start taking [...] may report side effects to FDA at 8-477-DDN-8323. What other drugs will affect hydromorphone? Opioid [...] drugs may affect hydromorphone, including prescription and hfnf-zxi-wcnwfln medicines, vitamins, and herbal products. Not all [...] to ensure that the information provided by [employer]. ('[employer]') is accurate, up-to-date, and complete, but no guarantee is made to that effect. Drug information contained herein may be time sensitive. [employer] information has been compiled for use by healthcare practitioners and consumers in the [place] and therefore [employer] does not warrant that uses outside of the [place] are appropriate, unless specifically indicated otherwise. [employer] drug information does not endorse drugs, diagnose patients or recommend therapy. [employer] drug information is an informational resource designed [...] effective or appropriate for any given patient. [employer] does not assume any responsibility for any aspect of healthcare administered with the aid of information [employer] provides. The information contained herein is not intended to cover all possible uses, directions, precautions, warnings, drug interactions, allergic reactions, or adverse effects. If you have questions about the drugs you are taking, check with your doctor, nurse or pharmacist. Copyright 8140-5331 [employer]. Version: 9.02. Revision Date: 06/30/2018. oxycodone (ox [...] The extended-release form of oxycodone is for jcatps-lgy-rkkmk treatment of pain and should not be [...] against the law. Stop taking all other wlpkvt-bwq-ncxqz narcotic pain medicines when you start taking [...] may report side effects to FDA at 3-313-XGH-0084. What other drugs will affect oxycodone? You [...] may affect oxycodone. This includes prescription and lhaa-pcg-muoeppd medicines, vitamins, and herbal products. Not all [...] to ensure that the information provided by [employer]. ('[employer]') is accurate, up-to-date, and complete, but no guarantee is made to that effect. Drug information contained herein may be time sensitive. [employer] information has been compiled for use by healthcare practitioners and consumers in the [place] and therefore [employer] does not warrant that uses outside of the [place] are appropriate, unless specifically indicated otherwise. [employer] drug information does not endorse drugs, diagnose patients or recommend therapy. [employer] drug information is an informational resource designed [...] effective or appropriate for any given patient. [employer] does not assume any responsibility for any aspect of healthcare administered with the aid of information [employer] provides. The information contained herein is not intended to cover all possible uses, directions, precautions, warnings, drug interactions, allergic reactions, or adverse effects. If you have questions about the drugs you are taking, check with your doctor, nurse or pharmacist. Copyright 4987-7420 [employer]. Version: 13.03. Revision Date: 05/16/2019. gabapentin ([place] [...] are a day sleeper or work a plant operator/shift supervisor. Some people have thoughts about suicide while [...] may report side effects to FDA at 9-736-MVC-6749. What other drugs will affect gabapentin? Taking gabapentin with other drugs that make you sleepy can worsen this effect. Ask your doctor before taking a sleeping pill, narcotic medication, muscle relaxer, or medicine for anxiety, depression, or seizures. Other drugs may interact with gabapentin, including prescription and nqxe-wpu-xwdikjk medicines, vitamins, and herbal products. Tell your doctor about all your current medicines and any medicine you start or stop using. Where can I get more information? Your pharmacist can provide more information about gabapentin. Remember, keep this and all other medicines out of the reach of children, never share your medicines with others, and use this medication only for the indication prescribed. Electronically signed by Ivelisse Camargo Conversion Real Estate Associate Attorney Fela at 11/19/2022 8:37 PM CDT documented in this encounter Plan of Treatment Not on file documented as of this encounter Visit Diagnoses Not on filedocumented in this encounter
--- OUTSIDE RECORDS SUMMARY | 2025-03-14 10:59 | XMS_ITS | Encounter Summary ---
Author Organization [employer] ([place], [place], [place], [place]) Address [address] [place] [address] Care Team Providers Care Cabinet Finisher Name Role Phone Unavailable Primary Care Provider Unavailabl e Encounter Details Date Type Department Care Team (Late st Contact Info) Description 07/22/2019 Transcribed Document [facility] [place] Family Medicine [facility] [place] [address] ProviderSonia MD [address] [place] [address] Social History Tobacco Use Types Packs/Day Years Used Date Smoking Tobacco: Never Assessed Comments Unknown Sex and Gender Information Value Date Recorded Sex Assigned at Not on file Legal Sex Female 1:42 PM CDT Gender Identity Not on file Sexual Orientation Not on file documented as of this encounter Miscellaneous Notes * Cerner Conversion Note - Sonia Boogie MD - 07/22/2019 11:20 AM DIORAMA MODEL MAKER Evaluation, Occupational Therapy Entered On: 07/22/2019 13:17 [...] CAM KELLY OTR/Cat - 07/22/2019 12:49 EST Sales Advisor Goals, OT Other LTG Grid Goal #1 [...] 07/22/2019 12:49 EST Electronically signed by Raman, [facility] Conversion Pillow Agent Cerner at 11/19/2022 8:47 PM CDT documented in this encounter Plan of Treatment Not on file documented as of this encounter Visit Diagnoses Not on filedocumented in this encounter
--- OUTSIDE RECORDS SUMMARY | 2025-03-14 10:59 | XMS_ITS | Encounter Summary ---
[facility] Address [address] [place] [address] Care Team Providers Care Road Gang Supervisor Name Role Phone Marc Rodrigeuz MD Primary Care Provider [phone] Encounter Details Date Type Department Care Team (Late st Contact Info) Description 06/18/2015 External CPT II QUARRYMAN - [facility] Social History Tobacco Use [...] PULMONARY & CRITICAL CARE MEDICINE [address] [place] [address] 06/26/2025 10:00 AM EST Office Visit [facility] PULMONARY & CRITICAL CARE MEDICINE [address] [place] [address] Kaitlin Joiner, RETAIL MANAGER [address] [place] [address] 09/12/2025 10:00 AM EST Office Visit [facility] CARDIOLOGY [address] [place] [address] Jimmy Duncan MD [address] [facility] [address] [place] [address] documented as of this encounter Visit Diagnoses [...] documented as of this encounter Care Teams Road Gang Supervisor Relationship Specialty Start Date End Date Marc Rodriguez MD [address] [facility] [address] [place] [address] PCP - General Adolescent Medicine 12/08/16 documented as of this encounter
--- OUTSIDE RECORDS SUMMARY | 2025-03-14 10:59 | XMS_ITS | Encounter Summary ---
[facility] Organization [facility] Address [address] [place] [address] Care Team Providers Care Title One Kindergarten Teacher Name Role Phone Marc Rodriguez MD Primary Care Provider [phone] Encounter Details Date Type Department Care Team (Late st Contact Info) Description 08/20/2015 External CPT II TELEPHONE COIN BOX COLLECTOR - [facility] Social History Tobacco Use [...] PULMONARY & CRITICAL CARE MEDICINE [address] [place] [address] 06/26/2025 10:00 AM EST Office Visit [facility] PULMONARY & CRITICAL CARE MEDICINE [address] [place] [address] Kaitlin Joiner, COLLAR TRIMMER [address] [place] [address] 09/12/2025 10:00 AM EST Office Visit [facility] CARDIOLOGY [address] [place] [address] Jimmy Duncan MD [address] [facility] [address] [place] [address] documented as of this encounter Visit Diagnoses [...] documented as of this encounter Care Teams Title One Kindergarten Teacher Relationship Specialty Start Date End Date Marc Rodriguez MD [address] [facility] [address] [place] [address] PCP - General Adolescent Medicine 12/08/16 documented as of this encounter
--- OUTSIDE RECORDS SUMMARY | 2025-03-14 10:59 | XMS_ITS | Encounter Summary ---
Author Organization [employer] ([place], [place], [place], [place]) Address [address] [place] [address] Care Team Providers Care Gluing Machine Operator Name Role Phone Unavailable Primary Care Provider Unavailabl e Encounter Details Date Type Department Care Team (Late st Contact Info) Description 08/02/2019 Transcribed Document [facility] [place] [address] [place] [address] ProviderSonia MD [address] [place], [place] [address] Social History Tobacco Use Types Packs/Day Years Used Date Smoking Tobacco: Never Assessed Comments Unknown Sex and Gender Information Value Date Recorded Sex Assigned at Not on file Legal Sex Female 1:42 PM CDT Gender Identity Not on file Sexual Orientation Not on file documented as of this encounter Miscellaneous Notes * Cerner Conversion Note - Sonia ProviderMD - 08/02/2019 5:00 AM TEACHER HEARING IMPAIRED Chart Check - Review Order Profile Entered On: 08/02/2019 4:11 EST Performed On: 08/02/2019 5:00 EST by Priti Davenport RN Chart Check Powerplans Initiated/Discontinued as Appropriate : Yes All Active Orders Reviewed : Yes Priti Davenport RN - 08/02/2019 4:11 EST documented in this encounter Plan of Treatment Not on file documented as of this encounter Visit Diagnoses Not on filedocumented in this encounter
--- OUTSIDE RECORDS SUMMARY | 2025-03-14 10:59 | XMS_ITS | Encounter Summary ---
Author Organization [employer] ([place], [place], [place], [place]) Address [address] [place] [address] Care Team Providers Care Senior Quality Assurance Specialist Name Role Phone Unavailable Primary Care Provider Unavailabl e Encounter Details Date Type Department Care Team (Late st Contact Info) Description 07/22/2019 Transcribed Document [facility] [place] [address] [place] [address] ProviderSonia MD [address] [place], [place] [address] Social History Tobacco Use Types Packs/Day Years Used Date Smoking Tobacco: Never Assessed Comments Unknown Sex and Gender Information Value Date Recorded Sex Assigned at Not on file Legal Sex Female 1:42 PM CDT Gender Identity Not on file Sexual Orientation Not on file documented as of this encounter Miscellaneous Notes * Cerner Conversion Note - Sonia ProviderMD - 07/22/2019 10:00 PM CUSTOM MARINE CANVAS FABRICATOR Pain Assessment Entered On: 07/23/2019 1:04 EST Performed On: 07/22/2019 23:59 EST by DANTE MASCORRO, Repair Welder-Nursing Intervention Information: acetaminophen Performed by DANTE MASCORRO, Repair Welder-Nursing on 07/22/2019 22:59:00 EST acetaminophen,1000mg Oral Pain Assessment Pain Assessment : Follow-up assessment Pain Scale Used : FACES Pain Intervention, Drug : Medicated Pain Improved by Intervention : Yes DANTE MASCORRO, Repair Welder-Nursing - 07/23/2019 1:03 EST Pain Scale Intensity : 3 DANTE MASCORRO Repair Welder-Nursing - 07/23/2019 1:03 EST Image 4 - Images currently included in the form version of this document have not been included in the text rendition version of the form. documented in this encounter Plan of Treatment Not on file documented as of this encounter Visit Diagnoses Not on filedocumented in this encounter
--- OUTSIDE RECORDS SUMMARY | 2025-03-14 10:59 | XMS_ITS | Clinical Summary ---
Author Organization [facility] Address [address] [facility] [address] [place] [address] Care Team Providers Care Director Of Retail Marketing Name Role Phone Unavailable Primary Care [...] Payer (Ef fective 2014-Present) Name:Sandie Frank Member ID:[id number] Relation to Subscriber:Self Name:Sandie Frank Subscriber ID:[id number] Payer ID:[id number] Group ID:Not on file Type:Medicare Address: [address]
--- OUTSIDE RECORDS SUMMARY | 2025-03-14 10:59 | XMS_ITS | Encounter Summary ---
Author Organization [facility] Address [address] [place] [address] Care Team Providers Care Medical Device Name Role Phone Marc Rodriguez MD Primary Care Provider [phone] Encounter Details Date Type Department Care Team (Late st Contact Info) Description 12/12/2015 External CPT II SVP BUSINESS DEVELOPMENT - [facility] Social History Tobacco Use [...] & CRITICAL CARE MEDICINE [address] [place] [id number] 06/26/2025 10:00 AM EST Office Visit [facility] PULMONARY & CRITICAL CARE MEDICINE [address] [place] [address] Kaitlin Joiner APRN [address] [place] [address] 09/12/2025 10:00 AM EST Office Visit [facility] CARDIOLOGY [address] [facility] [address] [place] [phone] Jimmy Duncan MD [address] [facility] [address] [place] [address] documented as of this encounter Visit Diagnoses [...] documented as of this encounter Care Teams Medical Device Relationship Specialty Start Date End Date Marc Rodriguez MD [address] [facility] [address] [place] [address] PCP - General Adolescent Medicine 12/08/16 documented as of this encounter
--- OUTSIDE RECORDS SUMMARY | 2025-03-14 10:59 | XMS_ITS | Encounter Summary ---
Author Organization [employer] ([place], [place], [place]) Address [address] [place] [address] Care Team Providers Care Rating Clerk Name Role Phone Unavailable Primary Care Provider Unavailabl e Encounter Details Date Type Department Care Team (Late st Contact Info) Description 07/22/2019 Transcribed Document [facility] [place] [address] [place] [address] ProviderSonia MD [address] [place], [place] [address] Social History Tobacco Use Types Packs/Day Years Used Date Smoking Tobacco: Never Assessed Comments Unknown Sex and Gender Information Value Date Recorded Sex Assigned at Not on file Legal Sex Female 1:42 PM CDT Gender Identity Not on file Sexual Orientation Not on file documented as of this encounter Miscellaneous Notes * Cerner Conversion Note - Sonia Boogie MD - 07/22/2019 8:11 AM DRAG OUT MAN SWAPNIL Main OR PreOp Summary Primary Physician: PEE VILLAR MD-ORT Finalized Date/Time: 08/01/19 08:35:37 Pt. Name: SANDIE AMARO Jovana Castellano/Sex: 1955 Female Med Rec #: [id number] Physician: PEE VILLAR MD-ORT Financial #: [id number] Pt. Type: I Room/Bed: 427/1 Admit/Disch: 07/22/19 04:50:00 - Institution: [facility] PreOp Case Times Entry 1 In Preop 07/22/19 05:30:00 Ready for Holding n/a Room Patient Ready for 07/22/19 06:35:00 Surgery Patient Out of Preop 07/22/19 07:35:00 Patient Out of n/a Holding Room Last Modified By: TIMOTHY OMALLEY 08/01/19 08:35:34 SJNeal PreOp Case Times Audit 08/01/19 08:35:34 Carriage Operator: ZA Modifier: [id number] <+> 1 Patient Out of Preop Finalized By: TIMOTHY OMALLEY Document Signatures Signed By: TIMOTHY OMALLEY 08/01/19 08:35 documented in this encounter Plan of Treatment Not on file documented as of this encounter Visit Diagnoses Not on filedocumented in this encounter
--- OUTSIDE RECORDS SUMMARY | 2025-03-14 10:59 | XMS_ITS | Encounter Summary ---
Author Organization [employer] ([place], [place], [place], [place]) Address [address] [place] [address] Care Team Providers Care Facility Designer Name Role Phone Unavailable Primary Care Provider Unavailabl e Encounter Details Date Type Department Care Team (Late st Contact Info) Description 08/02/2019 Transcribed Document [facility] [place] Family Medicine [facility] [place] [address] ProviderSonia MD [address] [place] [phone] Social History Tobacco Use Types Packs/Day Years Used Date Smoking Tobacco: Never Assessed Comments Unknown Sex and Gender Information Value Date Recorded Sex Assigned at Not on file Legal Sex Female 1:42 PM CDT Gender Identity Not on file Sexual Orientation Not on file documented as of this encounter Miscellaneous Notes * Cerner Conversion Note - Sonia ProviderMD - 08/02/2019 11:40 AM MENTAL HEALTH TECHNICIAN Patient: SANDIE FRANK Age: 63 Years Sex: Female : 1955 Admit Date 07/22/2019 04:50 Discharge Date No Discharge Date on Record Primary Care Provider LEOPOLDO TEJADA (REF)[facility] Discharge Diagnosis S/p Right Total Hip [...] azelastine 205.5 mcg/inh (0.15%) nasal spray 2 [place], PRN, Nasal, BID biotin 5 mg, Oral, [...] 50,000 Int Units = 1 Cap, Oral, W9Aleln donepezil 23 mg, Oral, Daily famotidine 40 mg, Oral, BID Flax Seed Oil 1,200 mg, Oral, BID Flonase 1 [place], Nostrils Both, BID gabapentin 100 mg oral [...]
--- OUTSIDE RECORDS SUMMARY | 2025-03-14 10:59 | XMS_ITS | Encounter Summary ---
Author Organization [employer] ([place], [place], [place]) Address [address] [place] [address] Care Team Providers Care Safety Counselor Name Role Phone Unavailable Primary Care Provider Unavailabl e Encounter Details Date Type Department Care Team (Late st Contact Info) Description 07/28/2019 Transcribed Document [facility] [place] Family Medicine [facility] [place] [address] ProviderSonia MD [address] [place] [id number] Social History Tobacco Use Types Packs/Day Years Used Date Smoking Tobacco: Never Assessed Comments Unknown Sex and Gender Information Value Date Recorded Sex Assigned at Not on file Legal Sex Female 1:42 PM CDT Gender Identity Not on file Sexual Orientation Not on file documented as of this encounter Miscellaneous Notes * Cerner Conversion Note - Sonia ProviderMD - 07/28/2019 6:00 AM CLIENT ENGAGEMENT SPECIALIST Pain Assessment Entered On: 07/28/2019 13:40 EST [...]
--- OUTSIDE RECORDS SUMMARY | 2025-03-14 10:59 | XMS_ITS | Encounter Summary ---
Author Organization [employer] ([place], [place], [place], [place]) Address [address] [place] [address] Care Team Providers Care Cashier Tube Room Name Role Phone Unavailable Primary Care Provider Unavailabl e Encounter Details Date Type Department Care Team (Late st Contact Info) Description 07/28/2019 Transcribed Document [facility] [place] Family Medicine [address] [place] [address] ProviderSonia MD [address], [place] [address] Social History Tobacco Use Types Packs/Day Years Used Date Smoking Tobacco: Never Assessed Comments Unknown Sex and Gender Information Value Date Recorded Sex Assigned at Not on file Legal Sex Female 1:42 PM CDT Gender Identity Not on file Sexual Orientation Not on file documented as of this encounter Miscellaneous Notes * Cerner Conversion Note - Historical ProviderMD - 07/28/2019 2:00 AM LEATHER TOOLER Director Details Entered On: 07/28/2019 2:26 EST Performed [...] Myrna Deleon, NICOLASA - 07/28/2019 2:26 EST documented in this encounter Plan of Treatment Not on file documented as of this encounter Visit Diagnoses Not on filedocumented in this encounter
--- OUTSIDE RECORDS SUMMARY | 2025-03-14 10:59 | XMS_ITS | Encounter Summary ---
Author Organization [employer] ([place], [place], [place], [place]) Address [address] [place] [address] Care Team Providers Care Professional Healthcare Representative Name Role Phone Unavailable Primary Care Provider Unavailabl e Encounter Details Date Type Department Care Team (Late st Contact Info) Description 07/22/2019 Transcribed Document [facility] [place] Family Medicine [address] [place] [address] ProviderSonia MD [address], [place] [address] Social History Tobacco Use Types Packs/Day Years Used Date Smoking Tobacco: Never Assessed Comments Unknown Sex and Gender Information Value Date Recorded Sex Assigned at Not on file Legal Sex Female 1:42 PM CDT Gender Identity Not on file Sexual Orientation Not on file documented as of this encounter Miscellaneous Notes * Cerner Conversion Note - Sonia ProviderMD - 07/22/2019 5:00 PM MOMD TEACHER Chart Check - Review Order Profile Entered On: 07/22/2019 19:02 EST Performed On: 07/22/2019 17:00 EST by Aimee Willis RN Chart Check Powerplans Initiated/Discontinued as Appropriate : Yes All Active Orders Reviewed : Yes Aimee Willis RN - 07/22/2019 19:02 EST Electronically signed by Raman [facility] Conversion Property Management Intern Cerner at 11/19/2022 8:33 PM CDT documented in this encounter Plan of Treatment Not on file documented as of this encounter Visit Diagnoses Not on filedocumented in this encounter
--- OUTSIDE RECORDS SUMMARY | 2025-03-14 10:59 | XMS_ITS | Encounter Summary ---
Author Organization [employer] ([place], [place], [place], [place]) Address [address] [place] [address] Care Team Providers Care Licensed Loan Officer Name Role Phone Unavailable Primary Care Provider Unavailabl e Encounter Details Date Type Department Care Team (Late st Contact Info) Description 08/02/2019 Transcribed Document [facility] [place] [address] [place] [address] ProviderSonia MD [address] [place] [address] Social History Tobacco Use Types Packs/Day [...] Sonia Boogie MD - 08/02/2019 12:56 PM DIRECTOR OF PSYCHOLOGY [place] [id number] SANDIE FRANK :1955 Visit Time:07/22/2019 Your Visit [...] These Are Your Goals To go to [facility] tomorrow. Discharge Vitals Temperature 36.4 ??C Heart Rate (Monitored) 62 Respiratory Rate 16 Blood Pressure 149/68 What to do next Instructions From Your Care Team Discharge Activity: Discharge Activity: Activity as tolerated Diet: Discharge Diet: Heart healthy diet Follow-Up Appointments Follow Up with PEE VILLAR MD-ORT When 09/05/2019 11:15 AM EST Comments Appointment has been made Where: [address] [place] [address]- Medications What How Much When Instructions Next [...] 205.5 mcg/ inh (0.15%) nasal spray) 2 [place](s) Nasal Two Times A Day as needed [...] A Day tonight fluticasone nasal (Flonase) 1 [place](s) Nostrils Both Two Times A Day tonigt [...] Barley. Bulgur wheat. Millet. Bran muffins. Popcorn. Bud wafer crackers. Vegetables Sweet potatoes. Spinach. Kale. Artichokes. Cabbage. Broccoli. Green peas. Carrots. Squash. Fruits Berries. Pears. Apples. Oranges. Avocados. Prunes and raisins. Dried figs. Meats and Other Protein Sources Schneider, kidney, roland, and soy beans. Split peas. [...] lolis has 11 g of protein. ??? Greene seeds ??? 1 oz has 5.5 g [...] floor. ??? Place frequently used items in gquy-ni-ylrft places ??? Keep electrical cables out of [...] ??? Using the bathroom. ??? Using household tube former operator or toxic chemicals. ??? Touching or taking [...] extended-release form of this medicine is for xkvwcc-nok-obmsm treatment of pain. This form of tramadol [...] against the law. Stop taking all other sxtyui-qta-ytjoi narcotic pain medications when you start taking [...] may report side effects to FDA at 0-001-QZQ-9114. What other drugs will affect tramadol? You [...] may affect tramadol. This includes prescription and qucm-xlc-mxxqwcc medicines, vitamins, and herbal products. Not all [...] to ensure that the information provided by [employer] ('[employer]') is accurate, up-to-date, and complete, but no guarantee is made to that effect. Drug information contained herein may be time sensitive. [employer] information has been compiled for use by healthcare practitioners and consumers in the [place] and therefore [employer] does not warrant that uses outside of the [place] are appropriate, unless specifically indicated otherwise. [employer] drug information does not endorse drugs, diagnose patients or recommend therapy. [employer] drug information is an informational resource designed [...] effective or appropriate for any given patient. [employer] does not assume any responsibility for any aspect of healthcare administered with the aid of information [employer] provides. The information contained herein is not intended to cover all possible uses, directions, precautions, warnings, drug interactions, allergic reactions, or adverse effects. If you have questions about the drugs you are taking, check with your doctor, nurse or pharmacist. Copyright 8030-5162 [employer]. Version: .. Revision Date: 05/16/2019. oxycodone (ox [...] The extended-release form of oxycodone is for ihcfzn-mfd-krcgr treatment of pain and should not be [...] against the law. Stop taking all other zpqsup-yda-rviom narcotic pain medicines when you start taking [...] may report side effects to FDA at 8-105-QTI-7620. What other drugs will affect oxycodone? You [...] may affect oxycodone. This includes prescription and rpah-azz-tcywynv medicines, vitamins, and herbal products. Not all [...] to ensure that the information provided by [employer]') is accurate, up-to-date, and complete, but no guarantee is made to that effect. Drug information contained herein may be time sensitive. [employer] information has been compiled for use by healthcare practitioners and consumers in the [place] and therefore [employer] does not warrant that uses outside of the [place] are appropriate, unless specifically indicated otherwise. [employer] drug information does not endorse drugs, diagnose patients or recommend therapy. [employer] drug information is an informational resource designed [...] effective or appropriate for any given patient. [employer] does not assume any responsibility for any aspect of healthcare administered with the aid of information [employer] provides. The information contained herein is not intended to cover all possible uses, directions, precautions, warnings, drug interactions, allergic reactions, or adverse effects. If you have questions about the drugs you are taking, check with your doctor, nurse or pharmacist. Copyright 2503-9601 [employer]. Version: 13.03. Revision Date: 05/16/2019. hydromorphone (oral) [...] extended-release form of this medicine is for feozgb-pdd-jrnlr treatment of moderate to severe pain, not [...] against the law. Stop taking all other rofqzw-feb-kuvnn narcotic pain medications when you start taking [...] may report side effects to FDA at 2-135-PUP-2894. What other drugs will affect hydromorphone? Opioid [...] drugs may affect hydromorphone, including prescription and yuox-flg-vbwxfrf medicines, vitamins, and herbal products. Not all [...] to ensure that the information provided by [employer]') is accurate, up-to-date, and complete, but no guarantee is made to that effect. Drug information contained herein may be time sensitive. [employer] information has been compiled for use by healthcare practitioners and consumers in the [place] and therefore [employer] does not warrant that uses outside of the [place] are appropriate, unless specifically indicated otherwise. [employer] drug information does not endorse drugs, diagnose patients or recommend therapy. [employer] drug information is an informational resource designed [...] effective or appropriate for any given patient. [employer] does not assume any responsibility for any aspect of healthcare administered with the aid of information [employer] provides. The information contained herein is not intended to cover all possible uses, directions, precautions, warnings, drug interactions, allergic reactions, or adverse effects. If you have questions about the drugs you are taking, check with your doctor, nurse or pharmacist. Copyright 6104-7453 [employer]. Version: 9.02. Revision Date: 06/30/2018. oxycodone (ox [...] The extended-release form of oxycodone is for nkwnqj-ghs-pwwpa treatment of pain and should not be [...] against the law. Stop taking all other gjewvh-yyf-whhfv narcotic pain medicines when you start taking [...] may report side effects to FDA at 1-993-WHD-3988. What other drugs will affect oxycodone? You [...] may affect oxycodone. This includes prescription and yyrf-hgh-wxbghoy medicines, vitamins, and herbal products. Not all [...] to ensure that the information provided by [employer] ('[employer]') is accurate, up-to-date, and complete, but no guarantee is made to that effect. Drug information contained herein may be time sensitive. [employer] information has been compiled for use by healthcare practitioners and consumers in the [place] and therefore [employer] does not warrant that uses outside of the [place] are appropriate, unless specifically indicated otherwise. [employer]'s drug information does not endorse drugs, diagnose patients or recommend therapy. [employer] drug information is an informational resource designed [...] effective or appropriate for any given patient. [employer] does not assume any responsibility for any aspect of healthcare administered with the aid of information [employer] provides. The information contained herein is not intended to cover all possible uses, directions, precautions, warnings, drug interactions, allergic reactions, or adverse effects. If you have questions about the drugs you are taking, check with your doctor, nurse or pharmacist. Copyright 6544-3849 [employer]. Version: 13.03. Revision Date: 05/16/2019. 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 Some people have thoughts about suicide while [...] medication. Electronically signed by Ivelisse Camargo Conversion Surveillance Dual Rate Officer Cerner at 11/19/2022 8:42 PM CDT documented in this encounter Plan of Treatment Not on file documented as of this encounter Visit Diagnoses Not on filedocumented in this encounter
--- OUTSIDE RECORDS SUMMARY | 2025-03-14 10:59 | XMS_ITS | Encounter Summary ---
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 - [facility] Social History Tobacco Use [...] & CRITICAL CARE MEDICINE [address] [place] [id number] 06/26/2025 10:00 AM EST Office Visit [facility] PULMONARY & CRITICAL CARE MEDICINE [address] [place] [address] Kaitlin Joiner APRN [address] [place] [address] 09/12/2025 10:00 AM EST Office Visit [facility] CARDIOLOGY [address] [facility] [address] [place] [phone] Jimmy Duncan MD [address] [facility] [address] [place] [address] documented as of this encounter Visit Diagnoses [...] documented as of this encounter Care Teams Drug Abuse Worker Relationship Specialty Start Date End Date Marc Rodriguez MD [address] [facility] [address] [place] [address] PCP - General Adolescent Medicine 12/08/16 documented as of this encounter
--- OUTSIDE RECORDS SUMMARY | 2025-03-14 10:59 | XMS_ITS | Encounter Summary ---
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 - [facility] Social History Tobacco Use [...] 9:30 AM EST Procedure visit [facility] PULMONARY & CRITICAL CARE MEDICINE [address] [place] [phone] 06/26/2025 10:00 AM EST Office Visit [facility] PULMONARY & CRITICAL CARE MEDICINE [address] [place] [address] Kaitlin Joiner APRN [address] [place] [address] 09/12/2025 10:00 AM EST Office Visit [facility] CARDIOLOGY [address] [facility] [address] [place] [phone] Jimmy Duncan MD [address] [facility] [address] [place] [address] documented as of this encounter Visit Diagnoses [...] documented as of this encounter Care Teams Parts Counter Specialist Relationship Specialty Start Date End Date Marc Rodriguez MD [address] [facility] [address] [place] [address] PCP - General Adolescent Medicine 12/08/16 documented as of this encounter
--- OUTSIDE RECORDS SUMMARY | 2025-03-14 10:59 | XMS_ITS | Clinical Summary ---
Author Organization [facility] Address [address] [place] [address] Care Team Providers Care Normalizer Name Role Phone Marc Rodriguez MD Primary Care Provider [phone] Allergies Active Allergy Reactions Criticality Noted Date Comments Cephalexin Other (See Comments) Low 10/29/2015 Mouth swelling Clindamycin Swelling Low 10/29/2015 Throat swelling Codeine Other (See Comments) Low 11/27/2016 Has a pain pump Erythromycin Other (See Comments) Low 10/29/2015 Mouth breaks out Gabapentin Unknown - High Severity Low 05/27/2024 Levofloxacin Unknown (See Comments) Low 04/15/2018 unknown Pregabalin Mental Status Change Low 10/29/2015 Meropenem Rash Low 08/16/2018 Nirmatrelvir-Ritonavir Other (See Comments) Low 04/2024 Pt stated it reacted with pt's pain pump and increased effects of fentanyl Medications SODIUM BICARB-TARTARIC ACID PO Take 1 tablet by mouth Every Night. Active Probiotic Product (PROBIOTIC ADVANCED PO) Take by mouth Daily. Active Multiple Vitamins-Minera ls (MULTIVITAMIN WITH MINERALS) tablet tablet Take 1 [...] spray Narcan 4 mg/actuation nasal spray 10/29/19 Active fluticasone (Flonase) 50 MCG/ACT nasal spray 2 sprays by Each Nare route Daily. 18 mL 02/25/20 22 Active nystatin (MYCOSTATIN) 100,000 unit/mL [...] as directed. Active montelukast (SINGULAIR) 10 MG tabletIndicatio ns:Chronic allergic rhinitis Take 1 tablet by mouth every night at bedtime. 30 tablet 5 01/26/20 24 Active Fluticasone Furoate-Vilante rol 100-25 MCG/ACT aerosol powderIndicatio ns:Severe persistent asthma without complication Inhale 1 puff [...] as directed Every 14 (Fourteen) Days. Active rosuvastatin (CRESTOR) 20 MG tablet Take 1 tablet by mouth Daily. 90 tablet 02/11/20 25 Active baclofen (LIORESAL) 10 MG tablet Take 1 tablet by mouth 2 (Two) Times a Day. 03/09/20 25 Active albuterol sulfate HFA 108 (90 Base) MCG/ACT inhaler INHALE 2 PUFFS BY MOUTH EVERY 4 HOURS NEEDED FOR WHEEZING FOR SHORTNESS OF BREATH 18 g 5 01/06/20 25 025 Discontinued Active Problems Problem Noted Date Diagnosed Date Primary hypertension 03/12/2025 Assessment & Plan (03/13/2025 9:56 AM EDT): Hypertension is stable and controlled. Family MD started Norvasc 5 mg daily. Patient brought BP log and its average 130 systolic. Continue current treatment regimen. Dietary sodium restriction. Weight loss. Ambulatory blood pressure monitoring. Blood pressure will be reassessed in 6 months. Discussed with patient [employer] and [employer] provide detailed guidelines for accurate blood pressure measurement. Ghotra steps for proper blood pressure measurement include: Recommend being fully relaxed sitting in chair with feet on the floor and back supported for at least 5 minutes. Avoid caffeine, exercise and smoking for at least 30 minutes before management. Ensure empty bladder, remove clothing covering the location of the cuff placement using proper blood pressure equipment and the blood pressure cuff size should be corrected with bladder encircling 80% of the arm. Repeat blood pressure if blood pressure is extremely high. The ideal blood pressure is less than 120/80 on the average blood pressure should be less than 130/80. Hyperlipidemia LDL goal <100 03/12/2025 Assessment & Plan (03/13/2025 9:56 AM EDT): Lipid abnormalities are stable Plan: Continue same [...] detail. Chronic venous insufficiency of lower extremity 03/12/2025 Assessment & Plan (03/13/2025 9:56 AM EDT): Continue wearing compression socks 20 to 30 mmHg preferably thigh-high if not knee-high to reduce pressure of the superficial veins causing discomfort and swelling, when not wearing compression socks will recommend keep legs elevated above the waist line on pillow or resurface to reduce the pressure of the lower extremity venous system. Recommend doing regular exercise and weight reduction weight reduction that will decrease the pressure of the deep system and help in venous return that reduces swelling and edema in the lower extremities. Pertussis 11/03/2022 Overview (12/10/2022): October 2022 CKD (chronic kidney disease) 07/30/2021 Cervical cord compression with myelopathy 2020 Overview (08/27/2021): Added automatically from request for surgery [id number] Lumbosacral radiculopathy at L5 04/22/2021 Overview (08/27/2021): Added automatically from request for surgery [id number] Chronic bilateral low back pain with bilateral s ciatica 04/22/2021 Overview (08/27/2021): Added automatically from request for surgery [id number] Spinal stenosis, lumbar clara on without neurogenic claudication 04/22/2021 Overview (08/27/2021): Added automatically from request for surgery [id number] Environmental and seasonal allergies 11/12/2020 Restless legs syndrome 11/12/2020 Adrenal insufficiency 02/22/2019 Overview (02/22/2019): chronic steroids - Cortef Rheumatoid arthritis 08/31/2018 Fibromyalgia 08/31/2018 Chronic cough 12/24/2017 Severe persistent asthma without complication Chronic allergic rhinitis 12/24/2017 Gastroesophageal reflux disease 12/24/2017 Encounters Date Type Department Care Team Description 03/13/2025 9:45 AM EDT Office Visit [facility]ARDIOLOG[facility] [address] [facility] [address] [place] [address] Jimmy Duncan MD Primary hypertension (Primary Dx); Hyperlipidemia LDL goal <100; Chronic venous insufficiency of lower extremity 03/13/2025 Patient rounding ([facility] only) [facility] [address] [facility] [address] [place] [address] Jimmy Duncan MD 03/13/2025 Travel 03/07/2025 Telephone [facility] [address] [facility] [address] [facility] [place] [address] QAZI - LAB ORDERS 03/06/2025 Telephone [facility] [address] [facility] [address] [place] [address] Jimmy Duncan MD 02/10/2025 Telephone [facility] [address] [facility] [address] [place] [address] Jimmy Duncan MD Med Refill 02/10/2025 Telephone [facility] [address] [facility] [address] [place] [address] Jimmy Duncan MD 02/10/2025 Telephone [facility] [address] [facility] [address] [place] [address] QAZI - SCHEDULING REQUEST 01/06/2025 Telephone [facility]ULMONARY & CRITICAL CARE MEDICINE [address] [place] [address] Sumaya Bruno, Lean Engineer 01/06/2025 [facility] PULMONARY & CRITICAL CARE MEDICINE [address] [place] [address] Kaitlin Joiner, INFANTRY WEAPONS CREWMEMBER Prior Authorization 01/05/2025 Refill [facility]ULMON[facility] & [facility]ITICAL CARE MEDICINE [address] [place] [address] Kaitlin Joiner, INFANTRY WEAPONS CREWMEMBER 12/30/2024 10:00 AM EDT Office Visit [facility] PULMONARY & CRITICAL CARE MEDICINE [address] [place] [address] Kaitlin Joiner, INFANTRY WEAPONS CREWMEMBER Severe persistent asthma without complication (Primary Dx); Environmental and seasonal allergies; Chronic cough 12/30/2024 9:04 AM EDT Hospital Encounter [facility]UL[facility]ARY & CRITICAL CARE MEDICINE [address] [place] [address] 12/30/2024 Travel from Last 3 Months Immunizations Immunization Administration Dates Next Due COVID-19 (MODERNA) 1st,2nd,3 rd Dose Monovalent 12/19/2021,06/19/2021,10/14/2020,09/16 COVID-19 (MODERNA) Monovalen t Original Booster 04/30/2022,07/15/2021 Flu Vaccine Split Quad 05/24/2015 Fluzone >6mos 05/17/2015 Fluzone High-Dose 65+YRS 05/01/2023,03/30/2020,1 Fluzone High-Dose 65+yrs 06/07/2022,1003/2021,03/30/2020,05/27 Fluzone Quad >6mos (Multi-dose) 06/07/2018,05/06,05/24/2015 Hepatitis A [...] Pulse 67 03/13/2025 9:26 AM EDT Temperature 36.5 C (97.7 F) 12/30/2024 9:22 AM EDT Respiratory Rate 19 06/09/2024 10:3 3 AM EST Oxygen Saturation 96% 12/30/2024 9:2 2 AM EDT room air at rest Inhaled Oxygen Concentration - - Weight 78.9 kg (174 lb) 03/13/2025 9:26 AM EDT Height 170.2 cm (5' 7 ) 03/13/2025 9:26 AM EDT Body Mass Index 27.25 03/13/2025 9:26 AM EDT Plan of Treatment Upcoming Encounters Date Type Department Care Team (Late st Contact Info) Description 06/26/2025 9:30 AM EST Procedure visit [facility] PULMONARY & CRITICAL CARE MEDICINE [address] [place] [address] 06/26/2025 10:00 AM EST Office Visit [facility] PULMONARY & CRITICAL CARE MEDICINE [address] [place] [address] Kaitlin Joiner, INFANTRY WE[employer] CREWMEMBER [address] [place] [address] 09/12/2025 10:00 AM EST Office Visit [facility] [address] [facility] [address] [address] Jimmy Duncan MD [address] [facility] [address] [place] [address] Health Maintenance Due Date Last Done Comments ANNUAL WELLNESS VISIT 12/08/2020 12/09/2019 , 11/26/2018, 12/12/2015 DXA SCAN 02/07/2021 02/07/2019, 04/07/2017 MAMMOGRAM 04/29/2021 04/29/2019, 09/04, 09/26/2015 COVID-19 Vaccine (2023-09 5 season) 2024 07/15/2023, 04/30/2022, 12/19/2021, Additional history exists LIPID PANEL 03/25/2025 03/25/2024, 03/04, 05/10/2019, Additional history exists INFLUENZA VACCINE 05/03/2025 07/13/2024, , 06/07/2022, Additional history exists TDAP/TD VACCINES (4 - Td or Tdap) 12/09/2032 12/09/2022, 09/19/2015, 10/07/1996 COLON CANCER SCREENING 5 YEA R SIGMOIDOSCOPY Discontinued 04/16/2016 COLONOSCOPY Discontinued 06/02/2018 COLORECTAL CANCER SCREENING Discontinued Pneumococcal Vaccine 50+ Completed 022, 03/25/2019, 05/17/2018, Additional history exists ZOSTER VACCINE Completed 05/29/2023, 01/21/2023 HEPATITIS C SCREENING Completed 04/25/[address] COLONOGRAPHY Discontinued FECAL OCCULT BLOOD TEST Discontinued FIT Testing (1 year) Discontinued Procedures Procedure Name Priority Date/Time Associated Diagnosis Comments ECG 12-LEAD Routine 03/13/2025 Primary hypertension Hyperlipidemia LDL goal <100 Chronic venous insufficiency of lower extremity SCANNED - LABS 03/08/2025 SCANNED - LABS 03/08/2025 SCANNED - LABS Routine 02/20/2025 12:27 PM EDT BREATHING CAPACITY TEST Routine 12/30/2024 3:29 PM EDT Severe persistent asthma without complication XR CHEST AP Routine 12/30/2024 9:14 AM EDT Severe persistent asthma without complication from Last 3 Months Results * ECG 12-LEAD (03/13/2025) Narrative 03/13/2025 [...] PCP: Marc Rodriguez MD Date: 03/13/2025 Department: [facility] [address] [facility] [address] [address] [facility] [address] Chief Complaint Patient presents with Hypertension Hyperlipidemia [...] Procedure Laterality Date APPENDECTOMY 1973 BREAST BIOPSY [id number] multiple CARDIAC CATHETERIZATION 03/13/2009 AE @ [facility]- [...] ALBUMIN 4.40 02/17/2017 AST 25 02/17/2017 ALT 02/17/2017 No results found for: CHOL , [...] reassessed in 6 months. Discussed with patient [employer] and [employer] provide detailed guidelines for accurate blood [...] any significant symptoms or [facility] if possible. Jimmy Duncan MD, FAC,[facility]. [place] [facility] Part of this note may be an electronic manager location/translation of spokenlanguage to printed text using the Digital Labation System. Jimmy Duncan MD ECG ORDERABLES Final Result * LABS SCANNED (03/08/2025) Only the most recent of3 resultswithin the time period is included. Jimmy Duncan MD LAB BLOOD ORDERABLES Final Resu lt * Breathing Capacity Test (12/30/2024 3:29 PM EDT) Kaitlin Joiner APRN PFT ORDERABLES Final Result * XR Chest AP (12/30/2024 9:14 AM EDT) Anatomical Region Laterality Modality Body, Chest N/A Radiographic Jami ging 12/30/2024 9:25 AM EDT Impressions 12/30/2024 9:27 AM EDT Impression: No acute cardiopulmonary abnormality. Electronically Signed: Angeline Cooper MD 12/30/2024 9:27 AM EDT Workstation ID: [id number] Narrative 12/30/2024 9:27 AM EDT XR CHEST [...] MD 12/30/2024 9:27 AM EDT Workstation ID: [id number] Kaitlin Joiner INFANTRY WEAPONS CREWMEMBER IMG DIAGNOSTIC IMAGING ORDER JORDANA Final Result from Last 3 Months Insurance MEDICARE A & B Member Subscriber Plan / Payer (Ef fective 2014-Present) Name:Sandie Frank Member ID:[id number] Relation to Subscriber:Self Name:Sandie Frank Jovana Subscriber ID:[id number] Payer ID:[id number] Group ID:Not on file Type:Not on file Address: [facility] [id number] [address] Member Subscriber Plan / Payer ( fective 2018-Present) Name:Sandie Frank Relation to Subscriber:Spouse Name:RAMIN FRANK Date of :1949 (Home) Address: [address] [place] [address] Payer ID:[id number] (NAIC) Type:Not on file Address: [facility] [id number] [place] [id number] Care Teams Normalizer Relationship Specialty Start Date End Date Marc Rodriguez MD [address] [place] [address] PCP - General Adolescent Medicine 12/08/16
--- OUTSIDE RECORDS SUMMARY | 2025-03-14 10:59 | XMS_ITS | Encounter Summary ---
Author Organization [facility] Address [address] [place] [address] Care Team Providers Care Oil Field Laborer Name Role Phone Marc Rodriguez MD Primary Care Provider [phone] Encounter Details Date Type Department Care Team (Late st Contact Info) Description 02/08/2016 External CPT II DYEING MACHINE BACK TENDER - [facility] Social History Tobacco Use [...] Description 06/26/2025 9:30 AM EST Procedure visit [facility] PULMONARY & CRITICAL CARE MEDICINE [address] [place] [phone] 06/26/2025 10:00 AM EST Office Visit [facility] PULMONARY & CRITICAL CARE MEDICINE [address] [place] [address] Kaitlin Joiner APRN [address] [place] [address] 09/12/2025 10:00 AM EST Office Visit [facility] CARDIOLOG[facility] [address] [facility] [address] [place] [address] Jimmy Duncan MD [address] [facility] [address] [place] [address] documented as of this encounter Visit Diagnoses [...] as of this encounter Care Teams Oil Field Laborer Relationship Specialty Start Date End Date Marc Rodriguez MD [address] [facility] [address] [place] [address] PCP - General Adolescent Medicine 12/08/16 documented as of this encounter
--- OUTSIDE RECORDS SUMMARY | 2025-03-14 10:59 | XMS_ITS | Encounter Summary ---
Author Organization [facility] Address [address] [place] [address] Care Team Providers Care Hearing Therapy Teacher Name Role Phone Marc Rodriguez MD Primary Care Provider Encounter Details Date Type Department Care Team (Late st Contact Info) Description 10/16/2015 External CPT II CUSTOMER ASSOCIATE - [facility] Social History Tobacco [...] PULMONARY & CRITICAL CARE MEDICINE [address] [place] [address] 06/26/2025 10:00 AM EST Office Visit [facility] PULMONARY & CRITICAL CARE MEDICINE [address] [place] [address] Kaitlin Joiner, ENTRY LEVEL ACCOUNT MANAGER [address] [place] [address] 09/12/2025 10:00 AM EST Office Visit [facility] [address] [place] [address] Jimmy Duncan MD [address] [facility] [address] [place] [address] documented as of this encounter Visit Diagnoses [...] documented as of this encounter Care Teams Hearing Therapy Teacher Relationship Specialty Start Date End Date Marc Rodriguez MD [address] [facility] [address] [place] [address] PCP - General Adolescent Medicine 12/08/16 documented as of this encounter
--- OUTSIDE RECORDS SUMMARY | 2025-03-14 10:59 | XMS_ITS | Encounter Summary ---
Author Organization [employer] ([place], [place], [place], [place]) Address [address] [place] [address] Care Team Providers Care Nut Cracker Name Role Phone Unavailable Primary Care Provider Unavailabl e Encounter Details Date Type Department Care Team (Late st Contact Info) Description 07/22/[address] [facility] [place] Family [place] [address] ProviderSonia MD [address] [place], [place] [address] Social History Tobacco Use Types Packs/Day Years Used Date Smoking Tobacco: Never Assessed Comments Unknown Sex and Gender Information Value Date Recorded Sex Assigned at Not on file Legal Sex Female 1:42 PM CDT Gender Identity Not on file Sexual Orientation Not on file documented as of this encounter Miscellaneous Notes * Cerner Conversion Note - Sonia Boogie MD - 07/22/2019 8:11 AM CONSTRUCTION TECH [facility] Main OR IntraOp Summary Primary Physician: PEE VILLAR MD-ORT Finalized Date/Time: 07/22/19 10:49:22 Pt. Name: PHYLLIS FRANK Jovana /Sex: 1955 Female Med Rec #: [id number] Physician: PEE VILLAR MD-ORT Financial #: [id number] Pt. Type: I Room/Bed: [facility]/ Admit/Disch: 07/22/19 04:50:00 - Institution: [facility] IntraOp Case Attendance Entry 1 Entry 2 Entry 3 Case Attendee Suzan Mora RN OTHER, ATTENDEE #2 OTHER, ATTENDEE #1 Role Performed Slab Worker, First Cell Saver Contract Engineer Vendor Time In 07/22/19 07:39:00 07/22/19 07:55:00 [...] SHADE FLOWERS, MINE NEVAREZ PA-C Role Performed CELL TESTER/Nurse Generation Engineering Technologist Scrub, Second Physician energy assistant Time In 07/22/19 07:39:00 07/22/19 07:39:00 [...] (REF) GANGA MEDINA CSA TECHNOLOGIST Role Performed Stockroom Coordinator Scrub, Senior Solutions Workflow Consultant, First Time In 07/22/19 07:39:00 07/22/19 07:39:00 [...] Suzan Mora, NICOLASA 07/22/19 09:37:19 07/22/19 09:37:19 [facility] IntraOp Case Attendance Audit 07/22/19 09:37:19 Assistant Professor In Family Studies: MARVEL Modifier: MARVEL 1 <+> Time Out [...] Procedure Hip Total Anterior Approach 07/22/19 09:24:13 Assistant Professor In Family Studies: MARVEL Modifier: MARVEL 3 <+> Time Out 3 <*> Procedure Hip Total Anterior Approach 7 <+> Time Out 7 <*> Procedure Hip Total Anterior Approach 9 <+> Time Out 9 <*> Procedure Hip Total Anterior Approach 07/22/19 09:10:21 Assistant Professor In Family Studies: MARVEL Modifier: MARVEL 1 <*> Case Attendee PEE VILLAR MD-ORT 1 <*> Role Performed Surgeon/Proceduralist, First 1 <*> Time In 07/22/19 08:08:00 1 <*> Procedure Hip Total Anterior Approach 2 <*> Case Attendee MICHELLE CALL CRNA 2 <*> Role Performed CELL TESTER/Nurse Generation Engineering Technologist 2 <*> Time In 07/22/19 07:39:00 2 <*> Procedure Hip Total Anterior Approach 3 <*> Case Attendee MINE HERRERA PA-C 3 <*> Role Performed Physician energy assistant 3 <*> Time In 07/22/19 08:45:00 3 <*> Procedure Hip Total Anterior Approach 3 <+> Other Attendee 4 <*> Case Attendee Suzan Mora, RN 4 <*> Role Performed Slab Worker, First 4 <*> Time In 07/22/19 [...] GANGA MEDINA CSA 7 <*> Role Performed Guard Lieutenant, First 7 <*> Time In 07/22/19 07:39:00 7 <*> Procedure Hip Total Anterior Approach 8 <*> Case Attendee Tad Rose, ARTIST COLOR SEPARATION 8 <*> Role Performed Stockroom Coordinator 8 <*> Time In 07/22/19 07:39:00 8 <*> Procedure Hip Total Anterior Approach 9 <*> Case Attendee OTHER, ATTENDEE #1 9 <*> Role Performed Vendor 9 <*> Time In 07/22/19 07:39:00 9 <*> Procedure Hip Total Anterior Approach 9 <-> Other Attendee Chase JORDAN 10 <*> Case Attendee OTHER, ATTENDEE #2 10 <*> Role Performed Cell Saver Contract Engineer 10 <*> Time In 07/22/19 07:55:00 10 <+> Time Out 10 <*> Procedure Hip Total Anterior Approach 11 <*> Case Attendee Aminah Au, Research And Development Engineer 11 <*> Role Performed Assistive Personnel 11 <*> Time In 07/22/19 07:39:00 11 <*> Time Out 07/22/19 08:00:00 11 <*> Procedure Hip Total Anterior Approach 07/22/19 08:47:02 Assistant Professor In Family Studies: MARVEL Modifier: MARVEL 3 <*> Time In 07/22/19 07:39:00 3 <*> Procedure Hip Total Anterior Approach 07/22/19 08:30:33 Assistant Professor In Family Studies: MARVEL Modifier: MARVEL <+> 11 Case Attendee <+> 11 Role Performed <+> 11 Time In <+> 11 Time Out <+> 11 Procedure 07/22/19 08:29:26 Assistant Professor In Family Studies: MARVEL Modifier: MARVEL 9 <*> Case Attendee OTHER, ATTENDEE 9 <*> Procedure Hip Total Anterior Approach <+> 10 Case Attendee <+> 10 Role Performed <+> 10 Time In <+> 10 Procedure 07/22/19 08:25:53 Assistant Professor In Family Studies: MARVEL Modifier: MARVEL 1 <*> Procedure Hip [...] [facility] IntraOp Case Times Audit 07/22/19 09:37:14 Assistant Professor In Family Studies: MARVEL Modifier: MARVEL <+> 1 Out Room [...] 09:11:10 [facility] IntraOp Communication Audit 07/22/19 09:11:10 Assistant Professor In Family Studies: MARVEL Modifier: MARVEL <+> 2 Communication By [...] [facility] IntraOp Counts Verification Audit 07/22/19 09:10:50 Assistant Professor In Family Studies: MARVEL Modifier: MARVEL 2 <*> Procedure Hip [...] [facility] IntraOp Counts Final Audit 07/22/19 09:30:27 Assistant Professor In Family Studies: MARVEL Modifier: MARVEL 1 <*> Procedure Hip [...] RN 07/22/19 08:19:56 [facility] IntraOp General Case Bellows Assembler 1 Case Information OR OR 05 SJE Case Level 1 Room Verified Yes Wound Class I - Clean Specialty SN Orthopedic Anesthesia Type General ASA Class 3 Diagnosis Preop Diagnosis MODERATE DJD RIGHT HIP Postop Diagnosis SEE POST OP NOTE Last Modified By: Suzan Mora RN 07/22/19 08:45:56 [facility] IntraOp General Case Data Audit 07/22/19 08:45:56 Assistant Professor In Family Studies: MARVEL Modifier: MARVEL 1 <*> Preop Diagnosis DJD RIGHT HIP [facility] IntraOp Implant Log Entry 1 Entry 2 Entry 3 Type Implant (Synthetic) Implant (Synthetic) Implant (Synthetic) Implant Log Implant Type Hardware Hardware Hardware Tissue Implant Type Implant LINER LGCL CUP 54MM SZ SHELL ACETAB 52MM 3 STEM HIP ORIGIN Identification [id number] Description Implant Quantity 1 1 1 Implant Site RIGHT HIP RIGHT HIP RIGHT HIP Implant Identification Model Number Implant Identification Serial Number Implant [id number] Identification Lot Number Implant Paxeon Reconstruction Paxeon Reconstruction Paxeon Reconstruction Identification Pharmacist Technician Name: Implant [id number] Identification Catalog Number Implant Size Implant Has an Yes Yes Yes Expiration Date Implant Expiration 03/02/24 12/22/23 12/01/23 Date Wasted Radioactive Material Time Implanted Tissue Implant Continue for Tissue Implant Documentation Tissue Identification Number Graft Prep Per Pharmacist Technician Instructions: Tissue Preparation Method: Reconstitution Solution: Reconstitution Solution Lot Number Reconstitution Solution Expiration Date: Thawing Solution Thawing Solution Lot Number Thawing Solution Expiration Date Preparation Materials, Other Preparation Materials, Other Lot Number Preparation Materials, Other Expiration Date Tissue Prepared/Processed By Pharmacist Technician Paperwork Completed Implant Type Comment Last Modified By: Suzan Mora, Suzan Acuña RN Wellnitz, Sara, RN 07/22/19 09:09:53 07/22/19 09:09:53 07/22/19 09:45:20 Entry 4 Type Implant (Synthetic) Implant Log Implant Type Hardware Tissue Implant Type Implant HEAD FEM CERC [id number] 36MM Identification [id number] Description Implant Quantity 1 Implant Site RIGHT HIP Implant Identification Model Number Implant Identification Serial Number Implant [id number] Identification Lot Number Implant Harjeeteon Reconstruction Identification Pharmacist Technician Name: Implant [id number] Identification Catalog Number Implant Size Implant Has an Yes Expiration Date Implant Expiration 06/02/24 Date Wasted Radioactive Material Time Implanted Tissue Implant Continue for Tissue Implant Documentation Tissue Identification Number Graft Prep Per Pharmacist Technician Instructions: Tissue Preparation Method: Reconstitution Solution: Reconstitution Solution Lot Number Reconstitution Solution Expiration Date: Thawing Solution Thawing Solution Lot Number Thawing Solution Expiration Date Preparation Materials, Other Preparation Materials, Other Lot Number Preparation Materials, Other Expiration Date Tissue Prepared/Processed By Pharmacist Technician Paperwork Completed Implant Type Comment Last Modified By: Suzan Mora RN 07/22/19 09:45:20 [facility] IntraOp Implant Log Audit 07/22/19 09:45:20 Assistant Professor In Family Studies: MARVEL Modifier: MARVEL <+> 3 Implant Identification Description <+> 3 Implant Identification Lot Number <+> 3 Implant Identification Pharmacist Technician Name: <+> 3 Implant Expiration Date <+> 3 Implant Identification Catalog Number <+> 4 Implant Identification Description <+> 4 Implant Identification Lot Number <+> 4 Implant Identification Pharmacist Technician Name: <+> 4 Implant Expiration Date <+> 4 Implant Identification Catalog Number 07/22/19 09:09:53 Assistant Professor In Family Studies: MARVEL Modifier: WELLNISA <+> 1 Implant Identification Description <+> 1 Implant Identification Lot Number <+> 1 Implant Identification Pharmacist Technician Name: <+> 1 Implant Expiration Date <+> 1 Implant Identification Catalog Number <+> 2 Implant Identification Description <+> 2 Implant Identification Lot Number <+> 2 Implant Identification Pharmacist Technician Name: <+> 2 Implant Expiration Date <+> [...] [facility] IntraOp Intraoperative Assessment Audit 07/22/19 08:20:38 Assistant Professor In Family Studies: MARVEL Modifier: MARISSAALESSANDRAIsael <+> 1 Patient is [...] vancomycin 1Gm vial - ANESTHETIC 1000MG/10 ML [id number] YENNY-JIAN [id number] Combo Med List Time Administered Route of [...] Entry 4 Medication/Irrigant heparin 1000units/ml 10ml - [id number] Combo Med List Time Administered Route of CELL SAVER Administration Dose Dose [id number] Unit of Measure units Volume 30ML Administered By OTHER, ATTENDEE #2 Procedure Irrigation Irrigant Volume In Irrigant Volume Out Last Modified By: Suzan Mora RN 07/22/19 08:29:49 [facility] IntraOp Medication Admin Audit 07/22/19 08:29:49 Assistant Professor In Family Studies: MARVEL Modifier: MARISSAALESSANDRAIsael 4 <*> Medication/Irrigant heparin 1000units/ml 10ml - [id number] 4 <+> Administered By S[facility] IntraOp Patient [...] Mora, NICOLASA, MICHELLE CALL CRNA, Angely, Aminah, Research And Development Engineer Position Verified Positioning Yes Verified by Anesthesia Positioning Yes Verified by Surgeon Last Modified By: Suzan Mora RN 07/22/19 08:35:00 [facility] IntraOp Patient Positioning Audit 07/22/19 08:35:00 Assistant Professor In Family Studies: MARVEL Modifier: MARVEL 1 <*> Procedure Hip [...] [facility] IntraOp Skin Prep Audit 07/22/19 10:49:21 Assistant Professor In Family Studies: MARVEL Modifier: MARVEL 1 <+> Methods 1 [...] [facility] IntraOp Surgical Procedures Audit 07/22/19 09:30:50 Assistant Professor In Family Studies: MARVEL Modifier: MARVEL 1 <*> Procedure Hip Total Anterior Approach 1 <+> Stop [facility] IntraOp Temp Regulation Devices Entry 1 Temp Regulation Temperature Forced Air Warming Regulation Device device Temperature 4765 Regulation Device Serial/Unit Number Temperature Upper body Regulation Site Temperature MICHELLE CALL, CELL TESTER Regulation Device Applied by Last Modified By: [...] Type C-Arm Site RIGHT HIP AND PELVIS Stevedore Dock Name Tad Rose, ARTIST COLOR SEPARATION Protective Devices Yes Used Last Modified By: [...]
--- OUTSIDE RECORDS SUMMARY | 2025-03-14 10:59 | XMS_ITS | Encounter Summary ---
Author Organization [employer] ([place], [place], [place], [place]) Address [address] [place] [address] Care Team Providers Care First Beater Name Role Phone Unavailable Primary Care Provider Unavailabl e Encounter Details Date Type Department Care Team (Late st Contact Info) Description 07/22/2019 Transcribed Document [facility] [place] [address] [place] [address] ProviderSonia MD [address], [place] [address] Social History Tobacco Use Types Packs/Day Years Used Date Smoking Tobacco: Never Assessed Comments Unknown Sex and Gender Information Value Date Recorded Sex Assigned at Not on file Legal Sex Female 1:42 PM CDT Gender Identity Not on file Sexual Orientation Not on file documented as of this encounter Miscellaneous Notes * Cerner Conversion Note - Sonia ProviderMD - 07/22/2019 2:00 PM ELECTRONIC ENGINEERING TECHNICIAN Pain Assessment Entered On: 07/22/2019 18:30 EST [...]
--- OUTSIDE RECORDS SUMMARY | 2025-03-14 10:59 | XMS_ITS | Encounter Summary ---
Author Organization [facility] Address [address] [place] [address] Care Team Providers Care Vegetable Inspector Name Role Phone Marc Rodriguez MD Primary Care Provider [phone] Edgardo Zuñiga MD Unavailable [phone] Giulia Briggs Unavailable [phone] Edgardo Zuñiga MD Unavailable [phone] Esther Mathew Unavailable [phone] Encounter Details Date Type Department Care Team (Late st Contact Info) Description 12/16/2023 Orders Only External Location [address] [place] [address] Provider, External Social History Tobacco Use Types [...] [facility] [address] [place] [address] Suzan Galindo DO [address] [place] [address] 03/07/2026 9:20 AM EDT Office Visit [facility] Surgery [facility] Sports Medicine [address] [place] [address] Edgardo Zuñiga MD [address] [facility] [address] [place] [address] documented as of this encounter [...] documented as of this encounter Care Teams Vegetable Inspector Relationship Specialty Start Date End Date Marc Rodriguez MD [address] [place] [address] PCP - General 12/14/20 Edgardo Zuñiga MD [address] [place] [address] Surgeon Neurosurgery 03/04/21 Giulia Briggs PA [address] [place] [address] Physician Riveter Portable Machine Neurosurgery 07/03/21 Edgardo Zuñiga MD [address] [place] [address] Surgeon Neurosurgery 09/16/21 Esther Mathew PA [address] [place] [address] Physician Riveter Portable Machine Neurology 11/19/22 documented as of this encounter
--- OUTSIDE RECORDS SUMMARY | 2025-03-14 10:59 | XMS_ITS | Encounter Summary ---
Author Organization [employer] ([place], [place], [place], [place]) Address [address] [place] [address] Care Team Providers Care Mobile Device Developer Name Role Phone Unavailable Primary Care Provider Unavailabl e Encounter Details Date Type Department Care Team (Late st Contact Info) Description 08/02/2019 Transcribed Document [facility] [place] Family Medicine [address] [place] [address] ProviderSonia MD [address], [place] [address] Social History Tobacco Use Types Packs/Day Years Used Date Smoking Tobacco: Never Assessed Comments Unknown Sex and Gender Information Value Date Recorded Sex Assigned at Not on file Legal Sex Female 1:42 PM CDT Gender Identity Not on file Sexual Orientation Not on file documented as of this encounter Miscellaneous Notes * Cerner Conversion Note - Sonia ProviderMD - 08/02/2019 10:44 AM PEDIATRIC IMMUNOLOGIST Stroke/Warfarin Instructions Entered On: 08/02/2019 10:44 EST [...]
--- OUTSIDE RECORDS SUMMARY | 2025-03-14 10:59 | XMS_ITS | Encounter Summary ---
Author Organization [facility] Address [address] [place] [address] Care Team Providers Care Dehydration Unit Operator Name Role Phone Marc Rodriguez MD Primary Care Provider [phone] Encounter Details Date Type Department Care Team (Late st Contact Info) Description 09/19/2015 External CPT II DIRECTOR LABOR STANDARDS - [facility] Social History Tobacco Use [...] Description 06/26/2025 9:30 AM EST Procedure visit [facility] [address] [place] [address] 06/26/2025 10:00 AM EST Office Visit [facility] [address] [place] [address] Kaitlin Joiner, SPRING MACHINE OPERATOR [address] [place] [address] 09/12/2025 10:00 AM EST Office Visit [facility] CARDIOLOGY [address] [place] [address] Jimmy Duncan MD [address] [facility] [address] [place] [address] documented as of this encounter Visit Diagnoses [...] documented as of this encounter Care Teams Dehydration Unit Operator Relationship Specialty Start Date End Date Marc Rodriguez MD [address] [facility] [address] [place] [address] PCP - General Adolescent Medicine 12/08/16 documented as of this encounter
--- OUTSIDE RECORDS SUMMARY | 2025-03-14 10:59 | XMS_ITS | Encounter Summary ---
Author Organization [employer] ([place], [place], [place], [place]) Address [address] [place] [address] Care Team Providers Care Meat Boner Name Role Phone Unavailable Primary Care Provider Unavailabl e Encounter Details Date Type Department Care Team (Late st Contact Info) Description 08/02/2019 Transcribed Document [facility] [place] Family Medicine [address] [place] [address] ProviderSonia MD [address] [place], [place] [address] Social History Tobacco Use Types Packs/Day Years Used Date Smoking Tobacco: Never Assessed Comments Unknown Sex and Gender Information Value Date Recorded Sex Assigned at Not on file Legal Sex Female 1:42 PM CDT Gender Identity Not on file Sexual Orientation Not on file documented as of this encounter Miscellaneous Notes * Cerner Conversion Note - Sonia ProviderMD - 08/02/2019 2:00 AM FITTING SUPERVISOR Delivery Crew Worker Details Entered On: 08/02/2019 1:26 EST Performed [...]
--- OUTSIDE RECORDS SUMMARY | 2025-03-14 10:59 | XMS_ITS | Referral Summary ---
Author Organization [employer] ([place], [place], [place], [place]) Address [address] [place] [address] Care Team Providers Care Nail Expert Name Role Phone Unavailable Primary Care Provider [...]
--- OUTSIDE RECORDS SUMMARY | 2025-03-14 10:59 | XMS_ITS | Clinical Summary ---
Author Organization [facility] Address [address] [place] [address] Care Team Providers Care Emergency Vehicle Technician Name Role Phone Marc Rodriguez MD Primary Care Provider [phone] Edgardo Zuñiga MD Unavailable [phone] Giulia Briggs Unavailable [phone] Edgardo Zuñiga MD Unavailable [phone] Esther Mathew Unavailable [phone] Allergies Active Allergy Reactions Criticality Noted Date [...] mouth nightly. Active QUEtiapine (SEROquel) 300 MG tabletIndicati ons:Bipolar Mood Disorder Take 1 tablet (300 mg) by mouth nightly. Active rosuvastatin (Crestor) 20 MG tablet Take 1 tablet (20 mg) by mouth nightly. Active levothyroxine (Synthroid, [...] (six) months. Due May 2024 Active Fluticasone Furoate-Vilant vanda 100-25 MCG/ACT aerosol powder Inhale 1 puff Daily. Active oxyCODONE (Roxicodone) 10 MG immediate release tablet Take 1 tablet (10 mg) by mouth every 4 (four) hours if needed for severe pain. 03/27/20 Active Additional Information Patient not taking.Reported on 03/08/2025 Implanted pain pump by Implant route. Dilaudid [...] nostril if symptoms continue 05/27/20 24 Active galcanezumab-g nlm (Emgality) 120 MG/ML injection Inject 1 Syringe [...] HOURS 10 each 3 12/10/19 25 Active donepezil (Aricept) 23 MG tablet Take 1 tablet by mouth once daily 30 tablet 1 03/01/20 25 Active baclofen (Lioresal) 10 MG tablet Take 1 tablet by mouth 2 times a day. 60 tablet 5 03/09/20 25 Active busPIRone (Buspar) 5 MG tabletIndicati ons:Total self-care deficit,Impair ed cognition Take 1 tablet by mouth 3 times a day. 90 tablet 3 03/09/20 25 Active dantrolene (Dantrium) 50 MG capsuleIndicat ions:Cervical cord compression with myelopathy (CMS/HCC) Take 2 capsules by mouth 4 times a day. 240 capsule 5 03/09/20 25 Active albuterol 108 (90 Base) MCG/ACT inhaler INHALE 2 PUFFS BY MOUTH EVERY 4 HOURS NEEDED FOR WHEEZING FOR SHORTNESS OF BREATH 03/03/20 Active dantrolene (Dantrium) 50 MG capsule Take 1 capsule by mouth 4 times a day. 90 capsule 5 03/10/20 25 Active sodium bicarbonate 650 MG tablet Take 1 tablet (650 mg) by mouth nightly. 025 Discontinued(O ther) diazePAM (Valium) 2 MG tablet Take 1 tablet (2 mg) by mouth every 6 (six) hours if needed (Severe muscle spasm). 03/27/20 24 025 Discontinued Dupilumab (Dupixent) 300 MG/2ML solution auto-injector 025 Discontinued dantrolene (Dantrium) 50 MG capsuleIndicat ions:Cervical cord compression with myelopathy (CMS/HCC) Take 2 capsules by mouth 4 times a day. 240 capsule 3 12/08/19 25 025 Discontinued(R eorder) busPIRone (Buspar) 5 MG tabletIndicati ons:Total self-care deficit,Impair ed cognition Take 1 tablet by mouth 3 times a day. 90 tablet 3 12/08/19 25 025 Discontinued(R eorder) baclofen (Lioresal) 10 MG tablet Take 1 tablet by mouth 4 times a day. 120 tablet 3 12/08/19 25 025 Discontinued(R eorder) donepezil (Aricept) 23 MG tablet Take 1 [...] (07/02/2021): Added automatically from request for surgery [id number] Chronic bilateral low back pain with bilateral s ciatica 04/22/2021 Overview (04/22/2021): Added automatically from request for surgery [id number] Environmental and seasonal allergies 11/12/2020 Restless legs [...] (04/22/2021): Added automatically from request for surgery [id number] Spinal stenosis, lumbar clara on without neurogenic claudication 04/22/2021 10/18/2021 Overview (04/22/2021): Added automatically from request for surgery [id number] Spondylolisthesis at L4-L5 level 04/22/2021 10/18/2021 Overview (04/22/2021): Added automatically from request for surgery [id number] AVN (avascular necrosis of bone) 08/30/2018 07/30/2021 Rotator cuff arthropathy 08/30/2018 Decreased range of motion of shoulder 07/22/2018 07/30/2021 Humeral fracture 04/01/2018 07/30/2021 Biceps tendonitis 04/01/2018 07/30/2021 Rotator cuff dysfunction 04/01/2018 Purpura 06/19/2017 07/30/2021 Itching 06/02/2017 07/30/2021 Status migrainosus 08/08/2015 Encounters Date Type Department Care Team Description 03/10/2025 Orders Only [facility] [address] [place] [address] Suzan Galindo, 03/10/2025 Refill [facility] [address] [place] [address] Suzan Galindo, 03/10/2025 Results Follow-Up [facility] [address] [place] [address] Suzan Galindo, 03/09/2025 1:20 PM EDT Office Visit [facility] [address] [place] [address] Suzan Galindo, High risk medication use (Primary Dx); Total self-care deficit; Impaired cognition; Cervical cord compression with myelopathy (CMS/HCC) 03/09/2025 Travel 03/08/2025 2:06 PM EDT - 03/08/2025 11:59 PM EDT Hospital Encounter [facility] Radiology [address] [place] [address] S/P lumbar fusion Discharge Disposition: Home or Self Care 03/08/2025 1:40 PM EDT Office Visit [facility] Orthopaedic Surgery & Sports Medicine [address] [place] [address] Edgardo Zuñiga MD S/P lumbar fusion (Primary Dx) 03/08/2025 Travel 03/07/2025 Orders Only [facility] [address] [place] [address] Edgardo Zuñiga MD S/P lumbar fusion (Primary Dx) 02/28/2025 Refill [facility] [address]st [place] [address] Esther Mathew, PA 01/02/2025 Refill [facility] [address] [place] [address] Esther Mathew, PA from Last [...] the past 12 months has th e [employer], gas, oil, or water company threatened to [...] Pulse 63 03/09/2025 1:22 PM EDT Temperature 36.8 C (98.3 F) 03/08/2025 2:00 PM EDT Respiratory Rate 16 09/21/2024 11:49 AM EST Oxygen Saturation 97% 03/09/2025 1:22 PM EDT Inhaled Oxygen Concentration - - Weight 78 kg (171 lb 15.3 oz) 03/09/2025 1:22 PM EDT Height 170.2 cm (5' 7 ) 03/09/2025 1:22 PM EDT Body Mass Index 26.93 03/09/2025 1:22 PM EDT Plan of Treatment Upcoming Encounters Date Type Department Care Team (Late st Contact Info) Description 09/11/2025 11:50 AM EST Office Visit [facility] [address] [place] [address] Suzan Galindo DO [address] [place] [address] 03/07/2026 9:20 AM EDT Office Visit [facility] Orthopaedic [facility] Medicine [address] [place] [address] Edgardo Zuñiga MD [address] [place] [address] Health Maintenance Due Date Last Done Comments [facility]-Bone Density Scan 1955 [facility]-Medicare Annual Wellness (AWV) 1955 [facility]-/Child/Adol SDOH Screenings 1955 CT Colonography 1998 Colonoscopy 1998 FIT-DNA 1998 FIT 1998 FOBT 1998 Sigmoidoscopy 1998 [facility]-Colorectal Cancer Screening 1998 [facility]-Breast Cancer Screening 11/01/2003 [id number] Vaccine ( season) 2024 07/15/2023, 04/30/2022, 12/19/2021, Additional history exists [facility]- SDOH Screenings 11/11/2024 [facility]-Adult SDOH Screenings 11/11/2024 05/13/2024 [facility]-Influenza Vaccine (#1) 04/03/202507/13, 05/01/2023, 06/07/2022, Additional history exists [facility]-Depression Screening 03/09/2026 025, 07/05/2024, 08/13/2021 [facility]-DTaP,Tdap,and Td Vaccines (3 - Td or Tdap) 12/09/2032 12/09/2022, 09/19/2015, 10/07/1996 [facility]-Hepatitis A Vaccines Aged Out 02/17/2019, 07/03 No longer eligible based on patient's age to complete this topic [facility]-Pneumococcal Vaccine: 50+ Years Completed 03/11/2022, 03/25/2019, 03/10/2016 [facility]-Zoster Vaccines Completed 05/29/2023, [facility]-RSV Vaccine: 60+ Years or Completed 08/13/2023 [facility]-Hepatitis C Screening Completed 04/25/2024 [facility]-Obesity Intervention Completed 025, 03/08/2025, 12/07/2024, Additional history exists HPV Vaccines Aged Out [...] this topic Medical Devices Implanted Type Area Loom Fixer Device Identifier Shelf Expiration Date Model / Serial / Lot Cif Ui H 8mm 8deg S - [id number] Implanted:Qty : 1 on 07/31/2021 by Edgardo Zuñiga MD at [facility] Cage N/A: Spine Cervical Merge.rs AG [id number] 01/31/2024 [id number] / / [id number] Synchromed Iii Implanted:Qty : 1 on 10/09/2023 Pain Pump Abdomen Medtronic 8667-20 / [id number] / One Level Plate, 12mm - S. - [id number] Implanted:Qty : 1 on 07/31/2021 by Edgardo Zuñiga MD at [facility] Plate N/A: Spine Cervical DePuy Spine Sales -[id number] 07/31/2021 [id number] / . / Pre-Lordosed Joe W/ Line 40mm - [id number] Implanted:Qty : 2 on 10/16/2021 by Edgardo Zuñiga MD at [facility] Joe Spine Lumbar DePuy Spine Sales -[id number] 10/16/2022 [id number] / / Self Drilling Screw 16mm - S. - [id number] Implanted:Qty : 4 on 07/31/2021 by Edgardo Zuñiga MD at [facility] Screw N/A: Spine Cervical DePuy Spine Sales -[id number] 07/31/2022 [id number] / . / Screw 5.5mm Viper Ti Fen Crtcl Polyax 8mm X 50mm - [id number] Implanted:Qty : 4 on 10/16/2021 by Edgardo Zuñiga MD at [facility] Screw Spine Lumbar DePuy Spine Sales -[id number] 10/16/2022 [id number] / / Spinal Cord Stimulator Spinal Cord Stimulator [facility] [employer] [id number] / [id number] / Description:LEADS (2): MODEL # 2218-50 Graft Vivigen 1cc - [id number] Implanted:Qty : 1 on 07/31/2021 by Edgardo Zuñiga MD at [facility]-[id number] 07/15/2022 BL-1500-001 / / [id number] Graft Vivigen 5cc - [id number] Implanted:Qty : 1 on 10/16/2021 by Edgardo Zuñiga MD at [facility] Spine Lumbar [facility]-[id number] 10/11/2022 BL-1500-002 / / [id number] Post Ibf Ui H 12mm 8deg 22/9 - [id number] Implanted:Qty : 1 on 10/16/2021 by Edgardo Zuñiga MD at [facility] Spine Lumbar DePuy Spine Sales [id number] 02/01/2022 [id number] / / Post Ibf Ui H 12mm 8deg 24/04 - [id number] Implanted:Qty : 1 on 10/16/2021 by Edgardo Zuñiga MD at [facility] Spine Lumbar DePuy Spine Sales LP-[id number] 05/02/2025 [id number] / / Single Inner Setscrew - [id number] Implanted:Qty : 4 on 10/16/2021 by Edgardo Zuñiga MD at [facility] Spine Lumbar DePuy Spine Sales [id number] 10/16/2022 [id number] / / Graft Vivigen 15cc - [id number] - [id number] Implanted:Qty : 1 on 03/18/2024 by Edgardo Zuñiga MD at [facility] N/A: Spine Lumbar [facility]-[id number] 02/02/2025 -[id number] -[id number] / [id number] / [id number] Screw 5.5mm Viper Ti Fen Crtcl Polyax 7mm X 50mm - [id number] Implanted:Qty : 3 on 03/18/2024 by Edgardo Zuñiga MD at [facility] N/A: Spine Lumbar DePuy Spine Sales [id number] / / Single Inner Setscrew - [id number] Implanted:Qty : 6 on 03/18/2024 by Edgardo Zuñiga MD at [facility] N/A: Spine Lumbar DePuy Spine Sales [id number] / / Pre-Lordosed Joe W/ Line 65mm - [id number] Implanted:Qty : 2 on 03/18/2024 by Edgardo Zuñiga MD at [facility] N/A: Spine Lumbar DePuy Spine Sales [id number] / / Procedures Procedure Name Priority Date/Time Associated Diagnosis Comments COMPREHENSIVE METABOLIC PANEL, PLASMA Routine 03/09/2025 2:40 PM EDT High risk medication use XR LUMBAR SPINE 4 VIEWS TO INCLUDE FLEXION EXTENSION Routine 03/08/2025 2:40 PM EDT S/P lumbar fusion HEPATITIS C ANTIBODY - ED W/REFLEX TO HCV QUANT PCR STAT 04/25/2024 10:55 PM EDT from Last 3 Months or Most Recently Relevant to Health Maintenance Results * (ABNORMAL) Comprehensive metabolic panel (03/09/2025 2:40 PM EDT) Glucose, Plasma 91 74 - 99 mg/dL 03/09/2025 5:10 PM EDT [facility] BUN, Plasma 14 8 - 23 mg/dL 03/09/2025 5:10 PM EDT [facility] Creatinine, Plasma 0.73 0.60 - 1.10 mg/dL 03/09/2025 5:10 PM EDT [facility] BUN/Creatinine Ratio 19 03/09/2025 5:10 PM EDT [facility] Sodium, Plasma 144 136 - 145 mmol/L 03/09/2025 5:10 PM EDT [facility] Potassium, Plasma 5.1(H) 3.6 - 4.9 mmol/L 03/09/2025 5:10 PM EDT [facility] Chloride, Plasma 106 97 - 107 mmol/L 03/09/2025 5:10 PM EDT [facility] CO2, Plasma 28 22 - 29 mmol/L 03/09/2025 5:10 PM EDT [facility] Anion Gap 10 6 - 16 mmol/L 03/09/2025 5:10 PM EDT [facility] Total Calcium, Plasma 9.8 8.9 - 10.2 mg/dL 03/09/2025 5:10 PM EDT [facility] Total Protein 6.6 6.3 - 7.9 g/dL 03/09/2025 5:10 PM EDT [facility] Albumin, Plasma 3.8 3.5 - 5.2 g/dL 03/09/2025 5:10 PM EDT [facility] AST, Plasma 77(H) 10 - 35 U/L 03/09/2025 5:10 PM EDT [facility] ALT, Plasma 38(H) 10 - 35 U/L 03/09/2025 5:10 PM EDT [facility] Alkaline Phosphatase, Plasma 140 46 - 142 U/L 03/09/2025 5:10 PM EDT [facility] Total Bilirubin, Plasma 0.7 0.2 - 1.1 mg/dL 03/09/2025 5:10 PM EDT [facility] eGFRcr 88.0 mL/min/1.7 3m*2 03/09/2025 5:10 PM EDT [facility] Comment:Reported eGFRcr in m L/min/1.73m2 is based the CKD-EPI 2020 equation that does not use a race coefficient. Blood Venous blood specimen / Unknown Venipuncture / Unknown 03/09/2025 2:40 PM EDT 03/09/2025 2:40 PM EDT us Suzan Sanchez DO LAB BLOOD ORDERABLES Final Result [facility] [address] [place] [address] * XR Lumbar Spine 4+ Views w [...] Zuñiga MD IMG XR PROCEDURES Final Result * Hepatitis C Antibody - ED (04/25/2024 10:55 PM EDT) Hepatitis C Antibody Negative Negative 04/25/2024 11:46 PM EDT [facility] Blood Venous blood specimen / Unknown Venipuncture / Unknown 04/25/2024 10:55 PM EDT 04/25/2024 11:05 PM EDT us Yelena Mcqueen MD LAB BLOOD ORDERABLES Final Res ult [facility] [address] [place] [address] from Last 3 Months or Most Recently Relevant to Health Maintenance Insurance MEDICARE ANTH Advance Directives * Full Code (Latest Code [...] Patient has decision-making capacity? Yes Care Teams Emergency Vehicle Technician Relationship Specialty Start Date End Date Marc Rodriguez MD [address] [place] [address] PCP - General 12/14/20 Edgardo Zuñiga MD [address] [place] [address] Surgeon Neurosurgery 03/04/21 Giulia Briggs PA [address] [place] [address] Physician Solar Photovoltaic Systems Engineer Neurosurgery 07/03/21 Edgardo Zuñiga MD [address] [place] [address] Surgeon Neurosurgery 09/16/21 Esther Mathew PA [address] [place] [address] Physician Solar Photovoltaic Systems Engineer Neurology 11/19/22
--- OUTSIDE RECORDS SUMMARY | 2025-03-14 11:00 | XMS_ITS | Encounter Summary ---
Author Organization [employer] ([place], [place], [place], [place]) Address [address] [place] [address] Care Team Providers Care Continuous Still Operator Name Role Phone Unavailable Primary Care Provider Unavailabl e Encounter Details Date Type Department Care Team (Late st Contact Info) Description 07/30/2019 Transcribed Document [facility] [place] [address] [place] [address] ProviderSonia MD [address] [place], [place] [address] Social History Tobacco Use Types Packs/Day Years Used Date Smoking Tobacco: Never Assessed Comments Unknown Sex and Gender Information Value Date Recorded Sex Assigned at Not on file Legal Sex Female 1:42 PM CDT Gender Identity Not on file Sexual Orientation Not on file documented as of this encounter Miscellaneous Notes * [employer] Conversion Note - Sonia ProviderMD - 07/30/2019 2:00 PM FRANCHISE SALES REPRESENTATIVE Pain Assessment Entered On: 07/30/2019 20:49 EST [...] form. Electronically signed by Ivelisse Camargo Conversion Vice President Talent Management [employer] at 11/19/2022 8:33 PM CDT documented in this encounter Plan of Treatment Not on file documented as of this encounter Visit Diagnoses Not on filedocumented in this encounter
--- OUTSIDE RECORDS SUMMARY | 2025-03-14 11:00 | XMS_ITS | Encounter Summary ---
Author Organization [employer] ([place], [place]) Address [address] [place] [address] Care Team Providers Care Technical Sales Representative Name Role Phone Unavailable Primary Care Provider Unavailabl e Encounter Details Date Type Department Care Team (Late st Contact Info) Description 07/29/2019 Transcribed Document [facility] [place] [facility] [place] [address] ProviderSonia MD [facility] [place], [place] [address] Social History Tobacco Use Types Packs/Day Years Used Date Smoking Tobacco: Never Assessed Comments Unknown Sex and Gender Information Value Date Recorded Sex Assigned at Not on file Legal Sex Female 1:42 PM CDT Gender Identity Not on file Sexual Orientation Not on file documented as of this encounter Miscellaneous Notes * [employer] Conversion Note - Sonia ProviderMD - 07/29/2019 11:45 PM FRAMING INSPECTOR Rapid Response Team Documentation Entered On: 07/30/2019 [...] change in location/level of care Rapid Response Technical Sales Representative #1 : Liyah Dobbins, RN Liyah Dobbins, RN - 07/30/2019 0:08 EST Electronically signed by [facility], [facility] Conversion Cabin Cleaner Cerner at 11/19/2022 8:42 PM CDT documented in this encounter Plan of Treatment Not on file documented as of this encounter Visit Diagnoses Not on filedocumented in this encounter
--- OUTSIDE RECORDS SUMMARY | 2025-03-14 11:00 | XMS_ITS | Encounter Summary ---
[facility] Organization [facility] Address [address] [place] [address] Care Team Providers Care Stockkeeper Name Role Phone Marc Rodriguez MD Primary Care Provider [phone] Encounter Details Date Type Department Care Team (Late st Contact Info) Description 01/11/2015 External CPT II DIRECTOR OF INTELLIGENCE - [employer] Social History Tobacco Use [...] PULMONARY & CRITICAL CARE MEDICINE [address] [place] [address] 06/26/2025 10:00 AM EST Office Visit [facility] PULMONARY & CRITICAL CARE MEDICINE [address] [place] [address] Kaitlin Joiner, MINE ENGINEERING MANAGER [address] [place] [address] 09/12/2025 10:00 AM EST Office Visit [facility] CARDIOLOGY [address] [place] [address] Jimmy Duncan MD [address] [place] [address] documented as of this encounter Visit Diagnoses [...] documented as of this encounter Care Teams Stockkeeper Relationship Specialty Start Date End Date Marc Rodriguez MD [address] [facility] [address] [place] [address] PCP - General Adolescent Medicine 12/08/16 documented as of this encounter
--- OUTSIDE RECORDS SUMMARY | 2025-03-14 11:00 | XMS_ITS | Encounter Summary ---
Author Organization [facility] Address [address] [place] [address] Care Team Providers Care Equipment Washer Name Role Phone Marc Rodriguez MD Primary Care Provider [phone] Encounter Details Date Type Department Care Team (Latest Contact Info) Description 03/13/2025 Travel Social History Tobacco Use Types Packs/Day [...] CENTER PULMONARY & CRITICAL CARE MEDICINE [address] [facility] [place] [address] 06/26/2025 10:00 AM EST Office Visit [facility] PULMONARY & CRITICAL CARE MEDICINE [address] [facility] [place] [address] Kaitlin Joiner, TORI [address] [place] [address] 09/12/2025 10:00 AM EST Office Visit [facility] CARDIOLOGY [address] [place] [address] Jimmy Duncan MD [address] [place] [address] documented as of this encounter Visit Diagnoses Not on filedocumented in this encounter Care Teams Equipment Washer Relationship Specialty Start Date End Date Marc Rodriguez MD [address] [facility] [address] [place] [address] PCP - General Adolescent Medicine 12/08/16 documented as of this encounter
--- OUTSIDE RECORDS SUMMARY | 2025-03-14 11:00 | XMS_ITS | Encounter Summary ---
Author Organization [employer] ([place], [place]) Address [address] [place] [address] Care Team Providers Care Accounts Payable Payroll Coordinator Name Role Phone Unavailable Primary Care Provider Unavailabl e Encounter Details Date Type Department Care Team (Late st Contact Info) Description 07/29/2019 Transcribed Document [facility] [place] [address] [place] [address] ProviderSonia MD [address] [place], [place] [address] Social History Tobacco Use Types Packs/Day Years Used Date Smoking Tobacco: Never Assessed Comments Unknown Sex and Gender Information Value Date Recorded Sex Assigned at Not on file Legal Sex Female 1:42 PM CDT Gender Identity Not on file Sexual Orientation Not on file documented as of this encounter Miscellaneous Notes * [employer] Conversion Note - Sonia ProviderMD - 07/29/2019 5:00 PM FILLER SIFTER HELPER Chart Check - Review Order Profile Entered [...]
--- OUTSIDE RECORDS SUMMARY | 2025-03-14 11:00 | XMS_ITS | Encounter Summary ---
Author Organization [employer] ([place], [place], [place]) Address [address] [place] [address] Care Team Providers Care Out Of Town Collection Clerk Name Role Phone Unavailable Primary Care Provider Unavailabl e Encounter Details Date Type Department Care Team (Late st Contact Info) Description 07/27/2019 Transcribed Document [facility] [place] [address] [place] [address] ProviderSonia MD [address] [place], [place] [address] Social History Tobacco Use Types Packs/Day Years Used Date Smoking Tobacco: Never Assessed Comments Unknown Sex and Gender Information Value Date Recorded Sex Assigned at Not on file Legal Sex Female 1:42 PM CDT Gender Identity Not on file Sexual Orientation Not on file documented as of this encounter Miscellaneous Notes * [employer] Conversion Note - Sonia ProviderMD - 07/27/2019 5:00 AM CROSSBAR SWITCH ADJUSTER Chart Check - Review Order Profile Entered On: 07/27/2019 6:57 EST Performed On: 07/27/2019 5:00 EST by Barrington Roberts RN Chart Check Powerplans Initiated/Discontinued as Appropriate : Yes All Active Orders Reviewed : Yes Barrington Roberts RN - 07/27/2019 6:57 EST Electronically signed by Raman [facility] Conversion Acquisitions Assistant Cerner at 11/19/2022 8:45 PM CDT documented in this encounter Plan of Treatment Not on file documented as of this encounter Visit Diagnoses Not on filedocumented in this encounter
--- OUTSIDE RECORDS SUMMARY | 2025-03-14 11:00 | XMS_ITS | Encounter Summary ---
Author Organization [employer] ([place], [place], [place], [place]) Address [address] [place] [address] Care Team Providers Care Ripsawyer Name Role Phone Unavailable Primary Care Provider Unavailabl e Encounter Details Date Type Department Care Team (Late st Contact Info) Description 07/28/2019 Transcribed Document [facility] [place] Family Medicine [address] [place] [address] [facility] [place], [place] [address] Social History Tobacco Use Types Packs/Day Years Used Date Smoking Tobacco: Never Assessed Comments Unknown Sex and Gender Information Value Date Recorded Sex Assigned at Not on file Legal Sex Female 1:42 PM CDT Gender Identity Not on file Sexual Orientation Not on file documented as of this encounter Miscellaneous Notes * [employer] Conversion Note - Sonia ProviderMD - 07/28/2019 10:00 PM SENIOR CATEGORY MANAGER Pain Assessment Entered On: 07/29/2019 3:30 EST [...]
--- OUTSIDE RECORDS SUMMARY | 2025-03-14 11:00 | XMS_ITS | Encounter Summary ---
Author Organization [employer] ([place], [place], [place], [place]) Address [address] [place] [address] Care Team Providers Care Academic Hospitalist Name Role Phone Unavailable Primary Care Provider Unavailabl e Encounter Details Date Type Department Care Team (Late st Contact Info) Description 07/28/2019 Transcribed Document [facility] [place] [facility] [place] [address] ProviderSonia MD [address] [place] [id number] Social History Tobacco Use Types Packs/Day Years Used Date Smoking Tobacco: Never Assessed Comments Unknown Sex and Gender Information Value Date Recorded Sex Assigned at Not on file Legal Sex Female 1:42 PM CDT Gender Identity Not on file Sexual Orientation Not on file documented as of this encounter Miscellaneous Notes * [employer]ner Conversion Note - Sonia ProviderMD - 07/28/2019 2:00 PM DISHING MACHINE OPERATOR Pain Assessment Entered On: 07/28/2019 18:05 EST Performed On: 07/28/2019 14:46 EST by Esther Cunningham RN Intervention Information: acetaminophen Performed by sEther Cunningham RN on 07/28/2019 13:46:00 EST acetaminophen,1000mg [...]
--- OUTSIDE RECORDS SUMMARY | 2025-03-14 11:00 | XMS_ITS | Encounter Summary ---
[facility] Address [address] [place] [address] Care Team Providers Care Bone Process Operator Name Role Phone Marc Rodriguez MD Primary Care Provider [phone] Encounter Details Date Type Department Care Team (Late st Contact Info) Description 10/10/2014 External CPT II LOCAL AREA NETWORK SYSTEMS ADMINSTRATOR - [facility] Social History Tobacco Use [...] PULMONARY & CRITICAL CARE MEDICINE [address] [place] [address] 06/26/2025 10:00 AM EST Office Visit [facility] PULMONARY & CRITICAL CARE MEDICINE [address] [place] [address] Kaitlin Joiner, STUCCO PLASTERER [address] [place] [address] 09/12/2025 10:00 AM EST Office Visit [facility] CARDIOLOGY [address] [place] [address] Jimmy Duncan MD [address] [facility] [address] [place] [address] documented as of this encounter Visit Diagnoses [...] documented as of this encounter Care Teams Bone Process Operator Relationship Specialty Start Date End Date Marc Rodriguez MD [address] [facility] [address] [place] [address] PCP - General Adolescent Medicine 12/08/16 documented as of this encounter
--- OUTSIDE RECORDS SUMMARY | 2025-03-14 11:00 | XMS_ITS | Encounter Summary ---
Author Organization [employer] ([place], [place], [place], [place]) Address [address] [place] [address] Care Team Providers Care Multiple Drill Operator Name Role Phone Unavailable Primary Care Provider Unavailabl e Encounter Details Date Type Department Care Team (Late st Contact Info) Description 07/28/2019 Transcribed Document [facility] [place] Family Medicine [address] [place] [address] ProviderSonia MD [address] [place], [place] [address] Social History Tobacco Use Types Packs/Day Years Used Date Smoking Tobacco: Never Assessed Comments Unknown Sex and Gender Information Value Date Recorded Sex Assigned at Not on file Legal Sex Female 1:42 PM CDT Gender Identity Not on file Sexual Orientation Not on file documented as of this encounter Miscellaneous Notes * Cerner Conversion Note - Sonia ProviderMD - 07/28/2019 5:00 AM MANAGER REGIONAL SALES Chart Check - Review Order Profile Entered On: 07/28/2019 4:25 EST Performed On: 07/28/2019 5:00 EST by Myrna Deleon, RN Chart Check Powerplans Initiated/Discontinued as Appropriate : Yes All Active Orders Reviewed : Yes yMrna Deleon, RN - 07/28/2019 4:25 EST Electronically signed by Raman [facility] Conversion Adoption Coordinator Cerner at 11/19/2022 8:33 PM CDT documented in this encounter Plan of Treatment Not on file documented as of this encounter Visit Diagnoses Not on filedocumented in this encounter
--- OUTSIDE RECORDS SUMMARY | 2025-03-14 11:00 | XMS_ITS | Encounter Summary ---
[facility] Address [address] [place] [address] Care Team Providers Care Etl Lead Name Role Phone Marc Rodriguez MD Primary Care Provider [phone] Encounter Details Date Type Department Care Team (Late st Contact Info) Description 10/12/2014 External CPT II SALOONKEEPER - [facility] Social History Tobacco Use [...] PULMONARY & CRITICAL CARE MEDICINE [address] [place] [address] 06/26/2025 10:00 AM EST Office Visit [facility] PULMONARY & CRITICAL CARE MEDICINE [address] [place] [address] Kaitlin Joiner, CARDIOVASCULAR SONOGRAPHER [address] [place] [address] 09/12/2025 10:00 AM EST Office Visit [facility] CARDIOLOGY [address] [place] [address] Jimmy Duncan MD [address] [facility] [address] [place] [address] documented as of this encounter Visit Diagnoses [...] documented as of this encounter Care Teams Etl Lead Relationship Specialty Start Date End Date Marc Rodriguez MD [address] [facility] [address] [place] [address] PCP - General Adolescent Medicine 12/08/16 documented as of this encounter
--- OUTSIDE RECORDS SUMMARY | 2025-03-14 11:00 | XMS_ITS | Encounter Summary ---
Author Organization [employer] ([place], [place], [place], [place]) Address [address] [place] [address] Care Team Providers Care Logistics And Planning Manager Name Role Phone Unavailable Primary Care Provider Unavailabl e Encounter Details Date Type Department Care Team (Late st Contact Info) Description 07/29/2019 Transcribed Document [facility] [place] Family Medicine [address] [place] [address] ProviderSonia MD [address] [place], [place] [address] Social History Tobacco Use Types Packs/Day Years Used Date Smoking Tobacco: Never Assessed Comments Unknown Sex and Gender Information Value Date Recorded Sex Assigned at Not on file Legal Sex Female 1:42 PM CDT Gender Identity Not on file Sexual Orientation Not on file documented as of this encounter Miscellaneous Notes * Cerner Conversion Note - Sonia ProviderMD - 07/29/2019 5:00 AM CHILD CARE AIDE Chart Check - Review Order Profile Entered On: 07/29/2019 5:10 EST Performed On: 07/29/2019 5:00 EST by Myrna Deleon, RN Chart Check Powerplans Initiated/Discontinued as Appropriate : Yes All Active Orders Reviewed : Yes Myrna Deleon RN - 07/29/2019 5:10 EST Electronically signed by Raman [facility] Conversion Cold Strip Feeder Fela at 11/19/2022 8:24 PM CDT documented in this encounter Plan of Treatment Not on file documented as of this encounter Visit Diagnoses Not on filedocumented in this encounter
--- OUTSIDE RECORDS SUMMARY | 2025-03-14 11:00 | XMS_ITS | Encounter Summary ---
Author Organization [employer] ([place], [place], [place], [place]) Address [address] [place] [address] Care Team Providers Care Production Artist Name Role Phone Unavailable Primary Care Provider Unavailabl e Encounter Details Date Type Department Care Team (Late st Contact Info) Description 07/30/2019 Transcribed Document [facility] Radiology [address] [place] [address] Diaz Vega MD [address] [place] [address] [address] [place] [id number] Social History Tobacco Use Types Packs/Day Years [...] hx cataract surgery bilateral / SNOMED CT 5202407884 / Confirmed high blood pressure / SNOMED CT 1934667621 / Confirmed uses Renexa / SNOMED CT 6803281 / Confirmed hx. chest pain / SNOMED CT 8972889375 / Confirmed high cholesterol / SNOMED CT 24368759 / Confirmed hx colon resection secondary decreased function / SNOMED CT 9505377840 / Confirmed chronic diarrhea / SNOMED CT 398027140 / Confirmed GERD / SNOMED CT 810752764 / Confirmed kidney stone right kidney current and hx / SNOMED CT 288940155 / Confirmed hx. frequent UTIs / SNOMED CT 8817538092 / Confirmed restless leg syndrome / SNOMED CT 23744552 / Confirmed chronic back pain / SNOMED CT 833278731 / Confirmed fibromyalgia / SNOMED CT 73081358 / Confirmed rheumatoid arthritis / SNOMED CT 079584482 / Confirmed Hypothyroidism / SNOMED CT 60912527 / Confirmed depression / SNOMED CT 93866985 / Confirmed migraine headaches / SNOMED CT 360896597 / Confirmed peripheral neuropathy / SNOMED CT 50098567 / Confirmed chronic hydrocort use / SNOMED CT 0110269 / Confirmed Adrenal insufficiency / SNOMED CT 0229377361 / Confirmed Arthritis / SNOMED CT 0224441 / Confirmed Aortic valve stenosis / SNOMED CT 057139353 / Confirmed At risk for sleep apnea / IMO 07471679 / Confirmed Glaucoma / SNOMED CT 72286500 / Confirmed Cataracts, both eyes / SNOMED CT 767395826 / Confirmed Osteoporosis / SNOMED CT 326991696 / Confirmed Seasonal allergies / SNOMED CT 8236803630 / Confirmed Asthma / SNOMED CT 650264231 / Confirmed Vitamin D deficiency / SNOMED CT 44299944 / Confirmed Dementia / SNOMED CT 43686678 / Confirmed Chronic kidney disease / SNOMED CT 9857231350 / Confirmed B12 deficiency / SNOMED CT 985169129 / Confirmed Pneumonia / SNOMED CT 312674275 / Confirmed Resolved: Hypotension / SNOMED CT 30936734 Canceled: adrenal insufficiency / SNOMED CT 0321387339 Canceled: Hyperthyroidism / SNOMED CT 82053SPV-IWA5-283H-744Z-[id number], Active Problems (33) Adrenal insufficiency Aortic valve [...] mg, Rectal, 1-Time, PRN: Constipation Flonase: 1 [place], Nostrils Both, BID Florastor: 250 mg, Oral, [...] intl units oral capsule: 1 Cap, Oral, H0Vuclm, 0 Refill(s) Dilaudid: pain pump, 0 Refill(s) Flax Seed Oil: 1,200 mg, Oral, BID, 0 Refill(s) Flonase: 1 [place], Nostrils Both, BID Lunesta: 3 mg, Oral, [...] azelastine 205.5 mcg/inh (0.15%) nasal spray: 2 [place], Nasal, BID, PRN: for allergy symptoms, 0 [...] azelastine 205.5 mcg/inh (0.15%) nasal spray 2 [place], PRN, Nasal, BID biotin 5 mg, Oral, [...] 50,000 Int Units = 1 Cap, Oral, S2Maxpe Dilaudid donepezil 23 mg, Oral, Daily famotidine 40 mg, Oral, BID Flax Seed Oil 1,200 mg, Oral, BID Flonase 1 [place], Nostrils Both, BID gabapentin 100 mg oral [...] Oral, QAM fluticasone 0.05% nasal spray 1 [place], Nostrils Both, BID gabapentin 100 mg cap [...] Patient medically ready to be discharged to halfway facility documented in this encounter Plan of Treatment Not on file documented as of this encounter Visit Diagnoses Not on filedocumented in this encounter
--- OUTSIDE RECORDS SUMMARY | 2025-03-14 11:00 | XMS_ITS | Encounter Summary ---
Author Organization [employer] ([place], [place], [place], [place]) Address [address] [place] [address] Care Team Providers Care Arboriculture Instructor Name Role Phone Unavailable Primary Care Provider Unavailabl e Encounter Details Date Type Department Care Team (Late st Contact Info) Description 07/29/[address] [facility] [place] Family Medicine [address] [place] [address] ProviderSonia MD [address] [place], [place] [address] Social History Tobacco Use Types Packs/Day Years Used Date Smoking Tobacco: Never Assessed Comments Unknown Sex and Gender Information Value Date Recorded Sex Assigned at Not on file Legal Sex Female 1:42 PM CDT Gender Identity Not on file Sexual Orientation Not on file documented as of this encounter Miscellaneous Notes * Cerner Conversion Note - Sonia ProviderMD - 07/29/2019 6:00 AM AGRICULTURAL REAL ESTATE AGENT Pain Assessment Entered On: 07/29/2019 8:36 EST [...]
--- OUTSIDE RECORDS SUMMARY | 2025-03-14 11:00 | XMS_ITS | Encounter Summary ---
Author Organization [employer] ([place], [place]) Address [address] [place] [address] Care Team Providers Care Expeller Operator Name Role Phone Unavailable Primary Care Provider Unavailabl e Encounter Details Date Type Department Care Team (Late st Contact Info) Description 07/29/2019 Transcribed Document [facility] [place] [address] [place] [address] ProviderSonia MD [facility] [place], [place] [address] Social History Tobacco Use Types Packs/Day Years Used Date Smoking Tobacco: Never Assessed Comments Unknown Sex and Gender Information Value Date Recorded Sex Assigned at Not on file Legal Sex Female 1:42 PM CDT Gender Identity Not on file Sexual Orientation Not on file documented as of this encounter Miscellaneous Notes * Cerner Conversion Note - Sonia ProviderMD - 07/29/2019 10:00 PM INFRASTRUCTURE ADMINISTRATOR Pain Assessment Entered On: 07/30/2019 2:07 EST [...]
--- OUTSIDE RECORDS SUMMARY | 2025-03-14 11:00 | XMS_ITS | Encounter Summary ---
Author Organization [employer] ([place], [place], [place], [place]) Address [address] [place] [address] Care Team Providers Care Counter Pocket Trimmer Name Role Phone Unavailable Primary Care Provider Unavailabl e Encounter Details Date Type Department Care Team (Late st Contact Info) Description 07/30/2019 Transcribed Document [facility] [place] Family Medicine [address] [place] [address] ProviderSonia MD [address] [place], [place] [address] Social History Tobacco Use Types Packs/Day Years Used Date Smoking Tobacco: Never Assessed Comments Unknown Sex and Gender Information Value Date Recorded Sex Assigned at Not on file Legal Sex Female 1:42 PM CDT Gender Identity Not on file Sexual Orientation Not on file documented as of this encounter Miscellaneous Notes * Cerner Conversion Note - Sonia ProviderMD - 07/30/2019 10:00 PM MANAGED CARE COORDINATOR Pain Assessment Entered On: 07/31/2019 5:26 EST [...]
--- OUTSIDE RECORDS SUMMARY | 2025-03-14 11:00 | XMS_ITS | Encounter Summary ---
Author Organization [employer] ([place], [place], [place], [place]) Address [address] [place] [address] Care Team Providers Care Cable Maintainer Name Role Phone Unavailable Primary Care Provider Unavailabl e Encounter Details Date Type Department Care Team (Late st Contact Info) Description 07/28/2019 Transcribed Document [facility] [place] Family [place] [facility] [place] [address] ProviderSonia MD [facility] [place], [place] [address] Social History Tobacco Use Types Packs/Day Years Used Date Smoking Tobacco: Never Assessed Comments Unknown Sex and Gender Information Value Date Recorded Sex Assigned at Not on file Legal Sex Female 1:42 PM CDT Gender Identity Not on file Sexual Orientation Not on file documented as of this encounter Miscellaneous Notes * [employer]ner Conversion Note - Sonia ProviderMD - 07/28/2019 2:44 PM CHECKMAN On Going Discharge Planning Entered On: 07/28/2019 14:45 EST Performed On: 07/28/2019 14:44 EST by REMY LOPEZ, Care Management-Motor Patrol Operator Care Management Progress Note Discharge Arrangements : Patient Post-Acute Information Patient Name: SANDIE FRANK Gender: Female : [birth year] Age: 63 Years No Post-Acute Placement(s) Listed No Post-Acute Service(s) Listed No [place] Referral(s) Listed Discharge Options Discussed with Patient : Short term rehabilitation REMY LOPEZ Care Management-Motor Patrol Operator - 07/28/2019 14:44 EST Narrative Progress Note Narrative Progress Note : Per Romina Lundy, they are unable to accept due to cost of medications. awaiting contact from [facility] Historical Progress Note : Received call from Catalina that at [facility] states the pt is declined for acute rehab and they are apprehensive about her coming to SRU due to her physical level of care. JAS relayed this to the pt and spouse and they agree to have the pt referred to the following: [facility], [facility] and [facility]. CM will fu for possible offers. Med list sent to [place] for review. NICHOLAS HOGUE, RN-Medical And Health Services Manager - 07/26/19 15:40:13 JAS sent text to [place] with [facility] this am requesting update on bed availability. She has the pt being reviewed by their physician. CM set ambulance tentatively for tomorrow at 1400. Awaiting word from [facility]. NICHOLAS HOGUE, RN-Medical And Health Services Manager - 07/25/19 15:17:05 JAS sent text to [place] with [facility] this am requesting update on bed availability. She has the pt being reviewed by their physician. CM set ambulance tentatively for tomorrow at 1400. Awaiting word from [facility]. CM updated pt and family. NICHOLAS HOGUE, RN-Medical And Health Services Manager - 07/25/19 15:24:48 07/24 [address] mrs Frank and she is awake and les shaky today... States she wants to go to rehab for getting strength and balance .. Await [facility] ady ,, She 's had her 3 Midnight stay in hospital .... LAMBERT Steele RN-Medical And Health Services Manager - 07/24/19 15:20:00 REMY LOPEZ, Care Management-Motor Patrol Operator - 07/28/2019 14:44 EST Electronically signed by [facility], [facility] Conversion Electronic Train Control Technician Cerner at 11/19/2022 8:25 PM CDT documented in this encounter Plan of Treatment Not on file documented as of this encounter Visit Diagnoses Not on filedocumented in this encounter
--- OUTSIDE RECORDS SUMMARY | 2025-03-14 11:00 | XMS_ITS ---
Author Organization [facility] Address [address] [place] [address] Care Team Providers Care Carpenter And Joiner Name Role Phone Marc Rodriguez MD Primary Care Provider [phone] Asthma - External Fill Status:Enrolled (Active) Start date:05/10/2024 Enrollment date:05/10/2024 Enrollment reason:Identified as being on target medication Current support & services provided:Refill Coordination , Benefits Investigation, Prior Authorization, External Pharmacy Dispensing Linked medications:Dupilumab () Linked problems:Severe persistent asthma without complication (Active) Continued Care and Services Coordination
--- OUTSIDE RECORDS SUMMARY | 2025-03-14 11:00 | XMS_ITS | Encounter Summary ---
Author Organization [employer] ([place], [place], [place], [place]) Address [address] [place] [address] Care Team Providers Care Lacquer Coater Name Role Phone Unavailable Primary Care Provider Unavailabl e Encounter Details Date Type Department Care Team (Late st Contact Info) Description 07/29/2019 Transcribed Document [facility] [place] Family Medicine [facility] [place] [address] ProviderSonia MD [address] [place], [place] [address] Social History Tobacco Use Types Packs/Day Years Used Date Smoking Tobacco: Never Assessed Comments Unknown Sex and Gender Information Value Date Recorded Sex Assigned at Not on file Legal Sex Female 1:42 PM CDT Gender Identity Not on file Sexual Orientation Not on file documented as of this encounter Miscellaneous Notes * [employer]ner Conversion Note - Sonia ProviderMD - 07/29/2019 12:02 PM FOCUSING MACHINE OPERATOR On Going Discharge Planning Entered On: 07/29/2019 12:08 EST Performed On: 07/29/2019 12:02 EST by REMY LOPEZ, Care Management-Network Applications Specialist Care Management Progress Note Discharge Arrangements : Patient Post-Acute Information Patient Name: SANDIE FRANK Gender: Female : 51 Age: 63 Years No Post-Acute Placement(s) Listed No Post-Acute Service(s) Listed No [place] Referral(s) Listed Discharge Options Discussed with Patient : Short term rehabilitation REMY LOPEZ, Care Management-Network Applications Specialist - 07/29/2019 12:02 EST Narrative Progress Note Narrative Progress Note : [facility] has not responded, message left, lengthy discussion with pt and spouse regarding branching out to broaden search. also to look at [facility] swing Bed, they are agreeable to only [...] Historical Progress Note : Per Romina at [facility], they are unable to accept due to cost of medications. awaiting contact from [facility] REMY LOPEZ, Care Management-Network Applications Specialist - 07/28/19 14:45:58 Received call from Catalina that at [facility] states the pt is declined for acute rehab and they are apprehensive about her coming to SRU due to her physical level of care. CM relayed this to the pt and spouse and they agree to have the pt referred to the following: [facility], [facility]Note 3[facility] and [facility]. CM will fu for possible offers. Med list sent to [facility] for review. NICHOLAS HOGUE, RN-Animal Impersonator - 07/26/19 15:40:13 JAS sent text to Catalina with [facility] this am requesting update on bed availability. She has the pt being reviewed by their physician. JAS set ambulance tentatively for tomorrow at 1400. Awaiting word from [facility]. NICHOLAS HOGUE, RN-Animal Impersonator - 07/25/19 15:17:05 JAS sent text to [place] with [facility] this am requesting update on bed availability. She has the pt being reviewed by their physician. JAS set ambulance tentatively for tomorrow at 1400. Awaiting word from [facility]. JAS updated pt and family. NICHOLAS HOGUE, RN-Animal Impersonator - 07/25/19 15:24:48 07/24 met with mrs Frank and she is awake and les shaky today... States she wants to go to rehab for getting strength and balance .. [facility]wait [facility] ,, She 's had her 3 Midnight stay in hospital .... LAMBERT Steele, RN-Animal Impersonator - 07/24/19 15:20:00 REMY LOPEZ, Care Management-Network Applications Specialist - 07/29/2019 12:02 EST Electronically signed by [facility], [facility] Conversion Registered Clinical Dietitian Cerner at 11/19/2022 8:39 PM CDT documented in this encounter Plan of Treatment Not on file documented as of this encounter Visit Diagnoses Not on filedocumented in this encounter
--- OUTSIDE RECORDS SUMMARY | 2025-03-14 11:00 | XMS_ITS | Encounter Summary ---
Author Organization [employer] ([place], [place], [place]) Address [address] [place] [address] Care Team Providers Care Financial Planning Consultant Name Role Phone Unavailable Primary Care Provider Unavailabl e Encounter Details Date Type Department Care Team (Late st Contact Info) Description 07/30/2019 Transcribed Document [facility] [place] Medicine [address] [place] [address] ProviderSonia MD [address] [place], [place] [address] Social History Tobacco Use Types Packs/Day Years Used Date Smoking Tobacco: Never Assessed Comments Unknown Sex and Gender Information Value Date Recorded Sex Assigned at Not on file Legal Sex Female 1:42 PM CDT Gender Identity Not on file Sexual Orientation Not on file documented as of this encounter Miscellaneous Notes * [employer]ner Conversion Note - Sonia ProviderMD - 07/30/2019 6:00 AM REGULATORY COMPLIANCE COORDINATOR Pain Assessment Entered On: 07/30/2019 20:46 EST [...]
--- OUTSIDE RECORDS SUMMARY | 2025-03-14 11:00 | XMS_ITS | Encounter Summary ---
Author Organization [facility] Address [address] [place] [address] Care Team Providers Care Document Control Associate Name Role Phone Marc Rodriguez MD Primary Care Provider [phone] Encounter Details Date Type Department Care Team (Late st Contact Info) Description 03/13/2025 Patient rounding ([facility] only) [facility] C[facility]IOLOGY [address] [facility] [address] [place] [address] Jimmy Duncan MD [address] [facility] [address] [place] [address] Social History Tobacco Use Types Packs/Day Years [...] as of this encounter Progress Notes * Ana Chris RegSched Rep - 03/13/2025 4:21 PM EDT My name is Pat Davis, and I am the Bread And Pastry Baker for [facility] [place]. I would like to thank you for choosing us to be your nurse prn. If you do not mind, I would liketo ask you questions about your recent visit with us. Please feel free to reply if you wish to provide us with feedback on your visit. First, could you tell me what went well with your recent visit? Secondly, we are always looking for ways to make our patients' experiences even better. Do you haveany recommendations on ways we may improve? Finally, overall were you satisfied with your visit with us at a [facility]? Over the next few days, you will be receiving a Patient Experience Survey. Please consider taking the survey, as it helps [facility] in improving their patient care. Thank you for taking the time to answer our questions today and we look forward to seeing you in the future. I hope you have a good day. documented in this encounter Plan of Treatment Upcoming Encounters Date Type Department Care Team (Late st Contact Info) Description 06/26/2025 9:30 AM EST Procedure visit [facility] PUL[facility]ARY [facility]ITICAL [facility]ARE MEDICINE [address] [place] [address] 06/26/2025 10:00 AM EST Office Visit [facility] MEDICINE [address] [place] [address] Kaitlin Joiner APRN [address] [place] [address] 09/12/2025 10:00 AM EST Office Visit [facility] [address] [facility] [address] [place] [address] Jimmy Duncan MD [address] [facility] [address] [place] [address] documented as of this encounter Visit Diagnoses Not on filedocumented in this encounter Care Teams Document Control Associate Relationship Specialty Start Date End Date Marc Rodriguez MD [address] [facility] [address] [facility] [address] [place] [address] PCP - General Adolescent Medicine 12/08/16 documented as of this encounter
--- OUTSIDE RECORDS SUMMARY | 2025-03-14 11:00 | XMS_ITS | Encounter Summary ---
Author Organization [employer] ([place], [place], [place], [place]) Address [address] [place] [address] Care Team Providers Care Stock Control Clerk Name Role Phone Unavailable Primary Care Provider Unavailabl e Encounter Details Date Type Department Care Team (Late st Contact Info) Description 07/30/2019 Transcribed Document [facility] Family Medicine [facility] [place] [address] ProviderSonia MD [address] [place] [id number] Social History Tobacco Use Types Packs/Day Years Used Date Smoking Tobacco: Never Assessed Comments Unknown Sex and Gender Information Value Date Recorded Sex Assigned at Not on file Legal Sex Female 1:42 PM CDT Gender Identity Not on file Sexual Orientation Not on file documented as of this encounter Miscellaneous Notes * Cerner Conversion Note - Sonia Boogie MD - 07/30/2019 11:55 AM TECHNICAL SALES SUPPORT MANAGER On Going Discharge Planning Entered On: 07/30/2019 11:55 EST Performed On: 07/30/2019 11:55 EST by REMY LOPEZ Care Management-Kitchen Chef Care Management Progress Note Discharge Arrangements : Patient Post-Acute Information Patient Name: SANDIE FRANK Gender: Female : 51 Age: 63 Years No Post-Acute Placement(s) Listed No Post-Acute Service(s) Listed No [place] Referral(s) Listed Discharge Options Discussed with Patient : Short term rehabilitation REMY LOPEZ Care Management-Kitchen Chef - 07/30/2019 11:55 EST Narrative Progress Note Narrative Progress Note : UPDATED CLINICAL SENT VIA [employer], Historical Progress Note : [facility] has not responded, message left, lengthy discussion with pt and spouse regarding branching out to broaden search. also to look at [facility] swing Bed, they are agreeable to [...] option. Referral process continued with [facility] Referrals, Case Management will continue to follow. REMY LOPEZ, Care Management-Kitchen Chef - 07/29/19 12:08:26 Per Romina at [facility], they are unable to accept due to cost of medications. awaiting contact from [facility] REMY LOPEZ Care Management-Kitchen Chef - 07/28/19 14:45:58 Received call from Catalina that at [facility] states the pt is declined for acute rehab and they are apprehensive about her coming to [facility] due to her physical level of care. CM relayed this to the pt and spouse and they agree to have the pt referred to the following: [facility], [facility] and [facility]. CM will fu for possible offers. Med list sent to [facility] for review. NICHOLAS HOGUE, RN-Sports Broadcaster - 07/26/19 15:40:13 JAS sent text to Catalina with [facility] this am requesting update on bed availability. She has the pt being reviewed by their physician. CM set ambulance tentatively for tomorrow at 1400. Awaiting word from [facility]. NICHOLAS HOGUE, RN-Sports Broadcaster - 07/25/19 15:17:05 JAS sent text to Catalina with [facility] this am requesting update on bed availability. She has the pt being reviewed by their physician. JAS set ambulance tentatively for tomorrow at 1400. Awaiting word from [facility]. JAS updated pt and family. NICHOLAS HOGUE, RN-Sports Broadcaster - 07/25/19 15:24:48 07/24 [address] with mrs Frank and she is awake and les shaky today... States she wants to go to rehab for getting strength and balance .. Await JUAN garsia ,, She 's had her 3 Midnight stay in hospital .... LAMBERT Steele, RN-Sports Broadcaster - 07/24/19 15:20:00 REMY LOPEZ, Care Management-Kitchen Chef - 07/30/2019 11:55 EST Electronically signed by Raman [facility] Conversion Boot Repairer Cerner at 11/19/2022 8:36 PM CDT documented in this encounter Plan of Treatment Not on file documented as of this encounter Visit Diagnoses Not on filedocumented in this encounter
--- OUTSIDE RECORDS SUMMARY | 2025-03-14 11:00 | XMS_ITS | Encounter Summary ---
Author Organization [employer] ([place], [place], [place], [place]) Address [address] [place] [address] Care Team Providers Care Counter Help Name Role Phone Unavailable Primary Care Provider Unavailabl e Encounter Details Date Type Department Care Team (Late st Contact Info) Description 07/29/2019 Transcribed Document [facility] Family Medicine [address] [place] [address] ProviderSonia MD [address] [place] [address] Social History Tobacco Use Types Packs/Day Years Used Date Smoking Tobacco: Never Assessed Comments Unknown Sex and Gender Information Value Date Recorded Sex Assigned at Not on file Legal Sex Female 1:42 PM CDT Gender Identity Not on file Sexual Orientation Not on file documented as of this encounter Miscellaneous Notes * Cerner Conversion Note - Sonia ProviderMD - 07/29/2019 2:00 PM SUPERVISOR REMELT Pain Assessment Entered On: 07/29/2019 17:45 EST [...]
--- OUTSIDE RECORDS SUMMARY | 2025-03-14 11:00 | XMS_ITS | Encounter Summary ---
Author Organization [employer] ([place], [place]) Address [address] [place] [address] Care Team Providers Care Electrical Cad Technician Name Role Phone Unavailable Primary Care Provider Unavailabl e Encounter Details Date Type Department Care Team (Late st Contact Info) Description 07/30/2019 Transcribed Document [facility] Family Medicine [address] [place] [address] ProviderSonia MD [address] [place], [place] [address] Social History Tobacco Use Types Packs/Day Years Used Date Smoking Tobacco: Never Assessed Comments Unknown Sex and Gender Information Value Date Recorded Sex Assigned at Not on file Legal Sex Female 1:42 PM CDT Gender Identity Not on file Sexual Orientation Not on file documented as of this encounter Miscellaneous Notes * Cerner Conversion Note - Sonia ProviderMD - 07/30/2019 5:00 PM CONE MACHINE FEEDER Chart Check - Review Order Profile Entered On: 07/30/2019 20:49 EST Performed On: 07/30/2019 17:00 EST by Jennifer Coleman, RN Chart Check Powerplans Initiated/Discontinued as Appropriate : Yes All Active Orders Reviewed : Yes Jennifer Coleman, RN - 07/30/2019 20:49 EST Electronically signed by Raman [facility] Conversion Metal Grader Cerner at 11/19/2022 8:38 PM CDT documented in this encounter Plan of Treatment Not on file documented as of this encounter Visit Diagnoses Not on filedocumented in this encounter
--- OUTSIDE RECORDS SUMMARY | 2025-03-14 11:00 | XMS_ITS | Encounter Summary ---
Author Organization [employer] ([place], [place], [place], [place]) Address [address] [place] [address] Care Team Providers Care Rn Homecare Name Role Phone Unavailable Primary Care Provider Unavailabl e Encounter Details Date Type Department Care Team (Late st Contact Info) Description 07/27/2019 Transcribed Document [facility] Family Medicine [address] [place] [address] ProviderSonia MD [facility] [place], [place] [address] Social History Tobacco Use Types Packs/Day Years Used Date Smoking Tobacco: Never Assessed Comments Unknown Sex and Gender Information Value Date Recorded Sex Assigned at Not on file Legal Sex Female 1:42 PM CDT Gender Identity Not on file Sexual Orientation Not on file documented as of this encounter Miscellaneous Notes * Cerner Conversion Note - Sonia ProviderMD - 07/27/2019 10:00 PM YAM CURER Pain Assessment Entered On: 07/28/2019 2:26 EST [...]
--- OUTSIDE RECORDS SUMMARY | 2025-03-14 11:00 | XMS_ITS | Encounter Summary ---
Author Organization [employer] ([place], [place], [place], [place]) Address [address] [place] [address] Care Team Providers Care Retail Clerk Name Role Phone Unavailable Primary Care Provider Unavailabl e Encounter Details Date Type Department Care Team (Late st Contact Info) Description 07/28/2019 Transcribed Document [facility] Family Medicine [address] [place] [address] ProviderSonia MD [address] [place], [place] [address] Social History Tobacco Use Types Packs/Day Years Used Date Smoking Tobacco: Never Assessed Comments Unknown Sex and Gender Information Value Date Recorded Sex Assigned at Not on file Legal Sex Female 1:42 PM CDT Gender Identity Not on file Sexual Orientation Not on file documented as of this encounter Miscellaneous Notes * Cerner Conversion Note - Sonia ProviderMD - 07/28/2019 5:00 PM CHEMICAL CELL CHANGER Chart Check - Review Order Profile Entered [...]
--- OUTSIDE RECORDS SUMMARY | 2025-03-14 11:00 | XMS_ITS | Encounter Summary ---
Author Organization [employer] ([place], [place]) Address [address] [place] [address] Care Team Providers Care Driver Recruiter Name Role Phone Unavailable Primary Care Provider Unavailabl e Encounter Details Date Type Department Care Team (Late st Contact Info) Description 07/31/2019 Transcribed Document [facility] [place] [address] [place] [address] ProviderSonia MD [address] [place] [place], [place] [address] Social History Tobacco Use Types Packs/Day Years Used Date Smoking Tobacco: Never Assessed Comments Unknown Sex and Gender Information Value Date Recorded Sex Assigned at Not on file Legal Sex Female 1:42 PM CDT Gender Identity Not on file Sexual Orientation Not on file documented as of this encounter Miscellaneous Notes * Cerner Conversion Note - Sonia ProviderMD - 07/31/2019 5:00 PM ORIENTOR Chart Check - Review Order Profile Entered On: 07/31/2019 16:18 EST Performed On: 07/31/2019 17:00 EST by Trina Adorno RN Chart Check Powerplans Initiated/Discontinued as Appropriate : Yes All Active Orders Reviewed : Yes Trina Adorno RN - 07/31/2019 16:18 EST Electronically signed by Ivelisse Camargo Conversion Agriculture Research Director Cerner at 11/19/2022 8:24 PM CDT documented in this encounter Plan of Treatment Not on file documented as of this encounter Visit Diagnoses Not on filedocumented in this encounter
--- OUTSIDE RECORDS SUMMARY | 2025-03-14 11:00 | XMS_ITS | Encounter Summary ---
Author Organization [employer] Address [address] [place] [address] Care Team Providers Care Assistant Food Service Director Name Role Phone Marc Rodriguez MD Primary Care Provider [phone] Encounter Details Date Type Department Care Team (Late st Contact Info) Description 11/13/2014 External CPT II SPECIAL NEEDS TEACHER - [employer] Social History Tobacco Use [...] Description 06/26/2025 9:30 AM EST Procedure visit [facility] PULMONARY & CRITICAL CARE MEDICINE [address] [place] [address] 06/26/2025 10:00 AM EST Office Visit [facility] PULMONARY & CRITICAL CARE MEDICINE [address] [place] [address] Kaitlin Joiner, PODIATRIST ASSISTANT [address] [place] [address] 09/12/2025 10:00 AM EST Office Visit [facility] CARDIOLOGY [address] [place] [address] Jimmy Duncan MD [address] [facility] [address] [place] [address] documented as of this encounter Visit Diagnoses [...] documented as of this encounter Care Teams Assistant Food Service Director Relationship Specialty Start Date End Date Marc Rodriguez MD [address] [facility] [address] [place] [address] PCP - General Adolescent Medicine 12/08/16 documented as of this encounter
--- OUTSIDE RECORDS SUMMARY | 2025-03-14 11:00 | XMS_ITS | Encounter Summary ---
Author Organization [employer] ([place], [place], [place], [place]) Address [address] [place] [address] Care Team Providers Care Metal Box Maker Name Role Phone Unavailable Primary Care Provider Unavailabl e Encounter Details Date Type Department Care Team (Late st Contact Info) Description 07/29/2019 Transcribed Document [facility] Radiology [address] [place] [address] Travis Robles MD [address] [place], [place] [address] Social History Tobacco Use Types Packs/Day Years [...] with physical therapy with the , nurse, sample case porter all the bedside. She look like she is about to fallout ofthe bed. The patient's was asking about taking her home. He wanted to know if Dr. Patrick Knutson M.D. with orthopedic surgery actually goes to see patients at the [facility] That he does not go to the [facility] although 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 Physical therapy strongly agreed that he needs to go to inpatient rehabilitation either [facility] are at the [facility]. No fevers or chills. No nausea vomiting. [...] prison facility. Patient's nurse and the patient's sample case porter who saw her upstairs saw her again [...] at the bedside as well as the sample case porter. They're looking at placement options. Apparently wanted facilities turn her down because of Lunesta apparently it's expensive medication and then there is a inhaler that she was getting that was expensive. I told her that we could probably find more affordable alternatives at least while she is in the prison facility if necessary. Saturday, July 27, 2019. [...] not [facility]. Encouraged her to continue [...] list: Medical Adrenal insufficiency / SNOMED CT 5526780524 / Confirmed Aortic valve stenosis / SNOMED CT 526185768 / Confirmed Arthritis / SNOMED CT 4512132 / Confirmed Asthma / SNOMED CT 746458692 / Confirmed At risk for sleep apnea / IMO 23610015 / Confirmed Cataracts, both eyes / SNOMED CT 579349887 / Confirmed chronic back pain / SNOMED CT 603426686 / Confirmed chronic diarrhea / SNOMED CT 701578008 / Confirmed Chronic kidney disease / SNOMED CT 6882369284 / Confirmed B12 deficiency / SNOMED CT 211956692 / Confirmed Dementia / SNOMED CT 49654227 / Confirmed depression / SNOMED CT 72919204 / Confirmed uses Renexa / SNOMED CT 0600575 / Confirmed chronic hydrocort use / SNOMED CT 9294498 / Confirmed peripheral neuropathy / SNOMED CT 93499905 / Confirmed GERD / SNOMED CT 521734269 / Confirmed fibromyalgia / SNOMED CT 84276490 / Confirmed Glaucoma / SNOMED CT 44291817 / Confirmed migraine headaches / SNOMED CT 584794268 / Confirmed hx cataract surgery bilateral / SNOMED CT 7957899373 / Confirmed hx. chest pain / SNOMED CT 5187602065 / Confirmed hx colon resection secondary decreased function / SNOMED CT 5317178093 / Confirmed hx. frequent UTIs / SNOMED CT 0754966731 / Confirmed high cholesterol / SNOMED CT 76699822 / Confirmed high blood pressure / SNOMED CT 3756816957 / Confirmed Hypothyroidism / SNOMED CT 78037592 / Confirmed kidney stone right kidney current and hx / SNOMED CT 567809350 / Confirmed Osteoporosis / SNOMED CT 477557520 / Confirmed Pneumonia / SNOMED CT 653616113 / Confirmed restless leg syndrome / SNOMED CT 49700940 / Confirmed rheumatoid arthritis / SNOMED CT 180576790 / Confirmed Seasonal allergies / SNOMED CT 2527566588 / Confirmed Vitamin D deficiency / SNOMED CT 12916581 / Confirmed Resolved: Hypotension / SNOMED CT 70661916 Canceled: adrenal insufficiency / SNOMED CT 1067708365 Canceled: Hyperthyroidism / SNOMED CT 17704AHH-[id number], Active Problems (33) Adrenal insufficiency Aortic valve [...] mg, Rectal, 1-Time, PRN: Constipation Flonase: 1 [place], Nostrils Both, BID Florastor: 250 mg, Oral, [...] intl units oral capsule: 1 Cap, Oral, [id number], 0 Refill(s) Dilaudid: pain pump, 0 Refill(s) Flax Seed Oil: 1,200 mg, Oral, BID, 0 Refill(s) Flonase: 1 [place], Nostrils Both, BID Lunesta: 3 mg, Oral, [...] azelastine 205.5 mcg/inh (0.15%) nasal spray: 2 [place], Nasal, BID, PRN: for allergy symptoms, 0 [...] azelastine 205.5 mcg/inh (0.15%) nasal spray 2 [place], PRN, Nasal, BID biotin 5 mg, Oral, [...] 50,000 Int Units = 1 Cap, Oral, [id number] Dilaudid donepezil 23 mg, Oral, Daily famotidine 40 mg, Oral, BID Flax Seed Oil 1,200 mg, Oral, BID Flonase 1 [place], Nostrils Both, BID gabapentin 100 mg oral [...] Oral, QAM fluticasone 0.05% nasal spray 1 [place], Nostrils Both, BID gabapentin 100 mg cap [...] is obese and debilitated, her , nurse, sample case porter THE bedside. The really voiced some interest [...] the afternoon. The patient's nurse and her sample case porter who saw her yesterday at the bedside [...] 8.5, creatinine screw 0.9. PATIENT, her , sample case porter. She was turned down by the [facility] because she's on some expensive medications including [...] make sure hemoglobin is stable. Discussed with sample case porter and waiting on a rehabilitation bed preferably at [facility]. I did tell them on happy to [...] continues for her to qualify for the [facility] [place] some anxiety about the cost of Lunesta. [address] dictation system used. Computer program makes numerous spelling grammar mistakes. If you have any questions or concerns do not hesitate call Dr. Travis Lux at cell phone number [phone]. documented in this encounter Plan of Treatment Not on file documented as of this encounter Visit Diagnoses Not on filedocumented in this encounter
--- OUTSIDE RECORDS SUMMARY | 2025-03-14 11:00 | XMS_ITS | Encounter Summary ---
Author Organization [employer] ([place], [place], [place], [place]) Address [address] [place] [address] Care Team Providers Care Diploma Dental Assistant Name Role Phone Unavailable Primary Care Provider Unavailabl e Encounter Details Date Type Department Care Team (Late st Contact Info) Description 07/28/2019 Transcribed Document [facility] Radiology [address] [place] [address] Travis Robles MD [address] [place], [place] [id number] Social History Tobacco Use Types Packs/Day Years [...] physical therapy with the , nurse, case investigator all the bedside. She look like she is about to fallout ofthe bed. The patient's was asking about taking her home. He wanted to know if Dr. Patrick Knutson M.D. with orthopedic surgery actually goes to see patients at the [facility] That he does not go to the [facility] although 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 Physical therapy strongly agreed that he needs to go to inpatient rehabilitation either [facility] are at the [facility]. No fevers or chills. No nausea vomiting. [...] She is still agreeable to going to jail facility. Patient's nurse and the patient's case investigator who saw her upstairs saw her again [...] the bedside as well as the case investigator. They're looking at placement options. Apparently wanted facilities turn her down because of Lunesta apparently it's expensive medication and then there is a inhaler that she was getting that was expensive. I told her that we could probably find more affordable alternatives at least while she is in the jail facility if necessary. Saturday, July 27, 2019. [...] list: Medical Adrenal insufficiency / SNOMED CT 0969601343 / Confirmed Aortic valve stenosis / SNOMED CT 049588863 / Confirmed Arthritis / SNOMED CT 5074373 / Confirmed Asthma / SNOMED CT 836180872 / Confirmed At risk for sleep apnea / IMO 45693234 / Confirmed Cataracts, both eyes / SNOMED CT 397014341 / Confirmed chronic back pain / SNOMED CT 070809187 / Confirmed chronic diarrhea / SNOMED CT 515459573 / Confirmed Chronic kidney disease / SNOMED CT 5278487469 / Confirmed B12 deficiency / SNOMED CT 412852287 / Confirmed Dementia / SNOMED CT 67646881 / Confirmed depression / SNOMED CT 64136768 / Confirmed uses Renexa / SNOMED CT 4717241 / Confirmed chronic hydrocort use / SNOMED CT 7185207 / Confirmed peripheral neuropathy / SNOMED CT 80738330 / Confirmed GERD / SNOMED CT 677905830 / Confirmed fibromyalgia / SNOMED CT 84148856 / Confirmed Glaucoma / SNOMED CT 53101151 / Confirmed migraine headaches / SNOMED CT 117614300 / Confirmed hx cataract surgery bilateral / SNOMED CT 5194616089 / Confirmed hx. chest pain / SNOMED CT 5620971278 / Confirmed hx colon resection secondary decreased function / SNOMED CT 5256404722 / Confirmed hx. frequent UTIs / SNOMED CT 4627238762 / Confirmed high cholesterol / SNOMED CT 66144598 / Confirmed high blood pressure / SNOMED CT 7546301919 / Confirmed Hypothyroidism / SNOMED CT 84555377 / Confirmed kidney stone right kidney current and hx / SNOMED CT 293268572 / Confirmed Osteoporosis / SNOMED CT 325990664 / Confirmed Pneumonia / SNOMED CT 077353696 / Confirmed restless leg syndrome / SNOMED CT 83087011 / Confirmed rheumatoid arthritis / SNOMED CT 038953383 / Confirmed Seasonal allergies / SNOMED CT 5521424552 / Confirmed Vitamin D deficiency / SNOMED CT 35314655 / Confirmed Resolved: Hypotension / SNOMED CT 40358574 Canceled: adrenal insufficiency / SNOMED CT 1252937854 Canceled: Hyperthyroidism / SNOMED CT 14090EYW-NPK4-414N-037B-78338KLC8978, Active Problems (33) Adrenal insufficiency Aortic valve [...] mg, Rectal, 1-Time, PRN: Constipation Flonase: 1 Aurelia, Nostrils Both, BID Florastor: 250 mg, Oral, [...] intl units oral capsule: 1 Cap, Oral, E3Ebjmg, 0 Refill(s) Dilaudid: pain pump, 0 Refill(s) Flax Seed Oil: 1,200 mg, Oral, BID, 0 Refill(s) Flonase: 1 Aurelia, Nostrils Both, BID Lunesta: 3 mg, Oral, [...] azelastine 205.5 mcg/inh (0.15%) nasal spray: 2 Aurelia, Nasal, BID, PRN: for allergy symptoms, 0 [...] azelastine 205.5 mcg/inh (0.15%) nasal spray 2 Aurelia, PRN, Nasal, BID biotin 5 mg, Oral, [...] 50,000 Int Units = 1 Cap, Oral, [id number] Dilaudid donepezil 23 mg, Oral, Daily famotidine 40 mg, Oral, BID Flax Seed Oil 1,200 mg, Oral, BID Flonase 1 Aurelia, Nostrils Both, BID gabapentin 100 mg oral [...] Oral, QAM fluticasone 0.05% nasal spray 1 Aurelia, Nostrils Both, BID gabapentin 100 mg cap [...] obese and debilitated, her , nurse, case investigator THE bedside. The really voiced some interest [...] afternoon. The patient's nurse and her case investigator who saw her yesterday at the bedside and we'll concur that she would benefit from short-term jail facility placement given her right hip replacement. [...] creatinine screw 0.9. PATIENT, her , case investigator. She was turned down by the [facility] because she's on some expensive medications including [...] sure hemoglobin is stable. Discussed with case investigator and waiting on a rehabilitation bed preferably at [facility]. I did tell them on happy to change some medications around if they need any medications or affordable further pharmacy but ultimately she needs to be some place where she can get really intense rehabilitation so that she can go home and says lungs possible without any complications. Conferensumation system used. Computer program makes numerous spelling grammar mistakes. If you have any questions or concerns do not hesitate call Dr. Travis Lux at cell phone number [phone]. documented in this encounter Plan of Treatment Not on file documented as of this encounter Visit Diagnoses Not on filedocumented in this encounter
--- OUTSIDE RECORDS SUMMARY | 2025-03-14 11:00 | XMS_ITS | Encounter Summary ---
Author Organization [facility] ([place], [place], [place], [place]) Address [address] [place] [address] Care Team Providers Care Jackaroo Name Role Phone Unavailable Primary Care Provider Unavailabl e Encounter Details Date Type Department Care Team (Late st Contact Info) Description 07/29/2019 Transcribed Document [facility] [address] [place] [address] ProviderSonia MD [address], [place] [address] Social History Tobacco Use Types Packs/Day Years Used Date Smoking Tobacco: Never Assessed Comments Unknown Sex and Gender Information Value Date Recorded Sex Assigned at Not on file Legal Sex Female 1:42 PM CDT Gender Identity Not on file Sexual Orientation Not on file documented as of this encounter Miscellaneous Notes * Cerner Conversion Note - Sonia ProviderMD - 07/29/2019 2:00 AM ACETONE RECOVERY WORKER Order Worker Details Entered On: 07/29/2019 3:31 EST Performed [...] 07/29/2019 3:31 EST Electronically signed by Raman [facility] Conversion Mill Beam Fitter Cerner at 11/19/2022 8:45 PM CDT documented in this encounter Plan of Treatment Not on file documented as of this encounter Visit Diagnoses Not on filedocumented in this encounter
--- OUTSIDE RECORDS SUMMARY | 2025-03-14 11:00 | XMS_ITS | Encounter Summary ---
Author Organization [employer] ([place], [place], [place], [place]) Address [address] [place] [address] Care Team Providers Care Roof Bolter Helper Name Role Phone Unavailable Primary Care Provider Unavailabl e Encounter Details Date Type Department Care Team (Late st Contact Info) Description 07/30/2019 Transcribed Document [facility] Family Medicine [address] [place] [address] ProviderSonia MD [address], [place] [address] Social History Tobacco Use Types Packs/Day Years Used Date Smoking Tobacco: Never Assessed Comments Unknown Sex and Gender Information Value Date Recorded Sex Assigned at Not on file Legal Sex Female 1:42 PM CDT Gender Identity Not on file Sexual Orientation Not on file documented as of this encounter Miscellaneous Notes * Cerner Conversion Note - Historical ProviderMD - 07/30/2019 2:[address]ILDER Parts Clerk Details Entered On: 07/30/2019 2:09 EST Performed [...]
== END 2025-03-14 11:20 | disposition home or self-care (01) ==
LOC: INF 10:51
PROVIDERS: PCP Internal Medicine Adolescent Medicine; Visit Provider Nurse Practitioner Family
DX: M81.0 Age-related osteoporosis without current pathological fracture (principal)
CPT/HCPCS: 96372; J0897

== ENCOUNTER 2025-03-22 13:00 | Outpatient (RCR) | payer MEDICARE, BC, SELFPAY ==
--- NOTE | 2025-03-27 16:26 | HMH.RHREAS ---
Rehab Reassessment Rehab OP Re-assessment Start: 03/06/25 14:10 Freq: Status: Active Protocol: Document 03/27/25 15:29 MARIE (Rec: 03/27/25 16:26 COLTONFLORY [id number]) E-signed By Amna Arizmendi, PT Oswestry Index Section 1 Pain Intensity The pain is severe and does not vary much Section 2 Personal Care ( increase the pain, but I manage not to change my way of Washing,Dresing) doing it Section 3 Lifting I can only lift very light weights at most Section 4 Walking I cannot walk at all without increasing pain Section 5 Sitting Pain prevents me from sitting for more than one hour Section 6 Standing I cannot stand more than 10 minutes without increasing pain Section 7 Sleeping Because of my pain, my normal night's sleep is less than 4 hours Section 8 Social Life Pain has restricted my social life and I do not go out often Section 9 Traveling Pain restricts me to short necessary journeys under 30 minutes Section 10 Changing Degreee of My pain seems to be getting better, but improvement is Pain slow Score and Risk Level Oswestry Sc 35 Oswestry Risk Level Completely Disabled Rehab Re-assessment Subjective Subjective Pt reports she feels 50% improved since starting PT in regards to overall function and mobility. However, pt states her back pain has been worse recently after her pain management doctor decreased the dosage of Baclofen and Dilaudid through her pain pump due to stomach issues. Pt reports pain at worst as 8/10 on VAS with laying flat on her back, prolonged sitting, standing and walking. Pt states she has to sleep in the recliner due to increased LBP. Pt also reports she saw her surgeon at the beginning of March who took xrays and was told her hardware looked good but her pain pump had moved and may need replaced. Pt states she did see her pain management doctor and notified him of this although they did not voice concern. Pt reports she has lost 85lbs overall since the pump was placed and was told this could alter placement. Pt reports continued issues with double vision and dry eyes/mouth and was diagnosed with dry eyes. Pt states she has not mentioned this to her neurologist yet but plans to at her next visit. Pt states she has been trying to stand and walk more at home with her rolling walker and CGA- minAx1 from her . Pt states her balance is better overall but she still has random bouts of altered balance without known cause. Objective Objective Notes Observation: altered postural control and seated dynamic balance with proximal weakness and altered sensation distally, although improving Standing tolerance: able to stand 10' with BUE support with minimal sway limited by low back pain Transfers: CGA to perform sit to stand and stand step transfers with use of BUE Ambulation: 200ft with CGA-minAx1 with RW - LE muscular fatigue noted following RLE MMT: hip flex 4-/5, hip abd 4/5, hip add 4/5, knee ext 4-/5, knee flex 4/5, ankle DF 4+/5 LLE MMT: hip flex 4-/5, hip abd 4/5, hip add 4/5, knee ext 4-/5, knee flex 4/5, ankle DF 4+/5 Assessment Assessment Notes Pt has attended PT/OT co-treatment sessions consisting of aerobic exercise, LE/core strengthening, transfers, standing tolerance, gait training and functional dynamic balance exercises with good tolerance. Pt demonstrated improved ability to transfer and ambulate with CGA and a rolling walker this date. Pt occasionally requires bouts of minAx1 for postural control to assist with spontaneous trunk sway that impairs her balance. Pt demonstrated no significant changes in LE strength and demonstrated regression in VICTORINA score with report of moderate-severe low back pain. Pt encouraged to contact pain management doctor for further recommendations regarding her pain pump and her neurologist regarding double vision and dry eyes/mouth . Overall, the pt would continue to benefit from skilled PT to further improve subject report of pain, LE/core/trunk strength, postural control, balance/ proprioception, transfers, gait and functional activity tolerance to decrease fall risk, decrease burden of care and improve overall QOL. PT Patient Goals PT Short Term 4 weeks: 2/2 Patient Goals 1. Perform bed mobility with SBA to decrease burden of care. -MET 2. Ambulate 25-50ft with FWW and minAx1 to assist with function -MET PT Custodial Patient 8 weeks: 0/5 Goals 1. BLE MMT to 4/5 grossly to assist with function/gait -NOT MET 2. Perform sit to stand from standard chair I -NOT MET 3. Ambulate 50-100ft I with LRD and proper mechanics to decrease fall risk -NOT MET 4. Improve score to moderate-severe disability category to improve overall QOL -NOT MET 5. Improve pain at worst to 4-6/10 to improve overall QOL -NOT MET Plan Plan Continue POC Frequency of Therapy 2x/week Duration of Therapy 4 more weeks Therapeutic Exercise Yes Including Home Exercise Program Manual Therapy Yes Techniques Neuromuscular Re- Yes education Therapeutic Yes Activities to Return to Previous Functional/Work Level Gait Training Yes ADL/Self Care Yes Education Group Therapy for Yes Medicare Eval/Re-Eval Yes Time and Billing Re-Eval Time 16 Re-Eval Billing 0 Units Charge for PT No reassessment? Charge for OT No reassessment? PHYSICIAN CERTIFICATION: I certify the specified therapy services for Sandie Frank are required, authorized, and reviewed every 30 days.
== END 2025-03-22 23:59 | disposition home or self-care (01) ==
LOC: PT 13:00
PROVIDERS: PCP Internal Medicine Adolescent Medicine; Visit Provider Internal Medicine Adolescent Medicine
DX: M47.814 Spondylosis without myelopathy or radiculopathy, thoracic region (principal); G60.9 Hereditary and idiopathic neuropathy, unspecified; R27.0 Ataxia, unspecified
CPT/HCPCS: 97530

== ENCOUNTER 2025-03-30 13:00 | Outpatient (RCR) | payer MEDICARE, BC, SELFPAY ==
--- NOTE | 2025-03-16 14:13 | HMH.RHREAS ---
Rehab Reassessment Rehab OP Re-assessment Start: 03/06/25 16:22 Freq: Status: Active Protocol: Document 03/16/25 12:56 GALINA (Rec: 03/16/25 14:13 GALINA [id number]) E-signed By Niecy Thompson OT QuickDASH Activities Please rate your ability to do the following activities in the last week by selecting the number below the appropriate response. 1. Open a tight or Mild difficulty new jar. 2. Do heavy Unable medical surgery nurse (e. g., wash castaneda, floors). 3. Carry a shopping Severe difficulty bag or briefcase. 4. Wash your back. Severe difficulty 5. Use a knife to No difficulty cut food. 6. Recreational Unable activities in which you take some force or impact through your arm, shoulder, or hand (e.g., golf, hammering, tennis, etc.). 7. During the past Moderately week, to what extent has your arm, shoulder or hand problem interfered with your normal social activities with family, friends , neighbors or groups? 8. During the past Moderately limited week, were you limited in your work or other regular daily activites as a result of your arm, shoulder or hand problem? 9. Arm, shoulder or Moderate hand pain. 10. Tingling (pins Moderate and needles) in your arm, shoulder or hand. 11. During the past Mild difficulty week, how much difficulty have you had sleeping because of the pain in your arm, shoulder or hand? Quick DASH 35 Rehab Re-assessment Subjective Subjective It is discouraging. Objective Objective Notes Pt seen on this date by OT for reassessment. Pt reports she has improved since initial evaluation and last reassessment. Pt reports no UE pain today, but does identify continued back and BLE pain rated 6/10 at worst still, however did report pain has been at 5/10 for a while. Pt reports continued intermittent tremors she relates to weakness in BUE. Sitting balance during ADL tasks is improving, although continues to be an area of deficit due do poor core strength and vestibular balance. She has been observed to retrieve small items from floor now when seat belt in place and is able to return to upright midline position mx . Pt is scheduled to see her surgeon on 03/08 for follow-up visit. Pt is scheduled for dr visit on 03/25 for pain management. Surgeon reported looked good , pump and simulator has moved due to pt losing 20 lbs. Pt continues to report significant numbness and tingling related to neuropathy, with FMC difficulties identified. Pt assists with IADLs, such as simple meal prep tasks, folding laundry, etc. performs majority of IADL task. Pt is primarily wc dependent for mobility and is right hand dominant. She acknowledges that she is benefitting from therapy. and pt reports increased improvement in FM with walker and with completion of ADLs and IADLs being at around 25% assist. Assessment Progress Assessment Progressing as Expected Assessment Notes Pt is consistent with attending therapy sessions. Pt is progressing well in core stability, endurance, and activity tolerance. Pt is improving in self-care, completion of ADL tasks and IADL tasks with assist. Pt is improving in transfers and balance. Pt shows improved MMT of 4-/5. QuickDASH Activities was 35. Pt's cabinetmaker helper strength is improving well. Pt demo functional ROM with L shoulder, R shoulder measured Flex 120 degrees, Abd 115 degrees, ER 55 degrees, IR 35 degrees. Convertible Power Shovel Operator strength today was R hand 27 lbs, L hand 25 lbs. OT Patient Goals OT Short Term 1. increase shoulder flex/abd to 130 Patient Goals 2. increase shoulder IR to 50/ER to 60 3 increase BUE strength to 4/5 MET 7. 9-hole peg test no greater than 30 sec bilaterally MET 8. Bilateral cabinetmaker helper at least 35 lbs New goals: 1. Pain at worst 5/10 2.QuickDash 30 or below 6. improved subjective ADL completion with Min Assist MET OT Signal Wirer Patient 1. increase shoulder flex/abd to 130 Goals 2. increase shoulder IR to 50/ER to 60 3 increase BUE strength to 4/5 MET 7. 9-hole peg test no greater than 30 sec bilaterally MET 8. Bilateral cabinetmaker helper at least 35 lbs New goals: 1. Pain at worst 5/10 2.QuickDash 30 or below 3. increase BUE to 5-/5 MMT 6. improved subjective ADL completion with Min Assist MET Plan Plan continue OT POC: POC will include- each sessions containing therapeutic exercises to increase B UE strength and endurance for completion of IADLs and ADLs, completion of transfers to address transfers within home and other settings to improve ind in transfers and FM tasks, caregiver education and training for safety and management of pt Frequency of Therapy 2x/wk Duration of Therapy 4 more weeks Therapeutic Exercise Yes Including Home Exercise Program Manual Therapy Yes Techniques Neuromuscular Re- Yes education Therapeutic Yes Activities to Return to Previous Functional/Work Level ADL/Self Care Yes Education Thermal Modalities Yes Electrical Yes Stimulation Ultrasound/ Yes Phonophoresis Iontophoresis Yes Parrafin Yes Orthotics/Bracing/ Yes Splinting Group Therapy for Yes Medicare Eval/Re-Eval Yes Time and Billing Re-Eval Time 8 Re-Eval Billing 1 Units Charge for OT Yes reassessment? PHYSICIAN CERTIFICATION: I certify the specified therapy services for Sandie Frank are required, authorized, and reviewed every 30 days.
== END 2025-03-30 23:59 | disposition home or self-care (01) ==
LOC: OT 13:00
PROVIDERS: PCP Internal Medicine Adolescent Medicine; Visit Provider Internal Medicine Adolescent Medicine
DX: G60.9 Hereditary and idiopathic neuropathy, unspecified (principal); R27.0 Ataxia, unspecified; M47.814 Spondylosis without myelopathy or radiculopathy, thoracic region
CPT/HCPCS: 97032; 97110; 97140; 97168; 97530

== ENCOUNTER 2025-04-04 15:06 | Outpatient (RCR) | payer MEDICARE, BC, SELFPAY | END 2025-04-04 23:59 | disposition home or self-care (01) | LOC: PT 15:06 | PROVIDERS: Visit Provider Internal Medicine Adolescent Medicine | DX: G60.9 Hereditary and idiopathic neuropathy, unspecified (principal); M47.814 Spondylosis without myelopathy or radiculopathy, thoracic region ==

== ENCOUNTER 2025-04-14 12:50 | Outpatient (CLI) | payer MEDICARE, BC, SELFPAY ==
--- NOTE | 2025-04-14 | CA_ITS ---
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 Normal phasic flow was noted in the visualized deep venous system. No intraluminal increased echogenicity is noted to suggest thrombus. There is normal compression and augmentation of the venous structures. No abnormal venous collaterals are seen. IMPRESSION: No evidence of deep venous thrombosis of the bilateral lower extremities. Authenticated and ERN
== END 2025-04-14 23:59 | disposition home or self-care (01) ==
LOC: RT 12:51
PROVIDERS: PCP Nurse Practitioner Family; Visit Provider Nurse Practitioner Family
DX: R60.0 Localized edema (principal)
CPT/HCPCS: 93970

== ENCOUNTER 2025-04-18 14:53 | Outpatient (CLI) | payer MEDICARE, BC, SELFPAY ==
--- OUTSIDE RECORDS SUMMARY | 2017-12-24 10:37 | XMS_ITS | Encounter Summary ---
Author Organization [facility] Address [address] [place] [address] Care Team Providers Care E Learning Coordinator Name Role Phone Marc Rodriguez MD Primary Care Provider [phone] Encounter Details Date Type Department Care Team (Late st Contact Info) Description 12/24/2017 10:37 AM EDT Hospital Encounter [facility] PULMONARY & CRITICAL CARE MEDICINE [address] [facility] [place] [address] Social History Tobacco Use Types Packs/Day Years [...] Description 06/26/2025 9:30 AM EST Procedure visit [facility] PULMONARY & CRITICAL CARE MEDICINE [address] [place] [address] 06/26/2025 10:00 AM EST Office Visit [facility] PULMONARY & CRITICAL CARE MEDICINE [address] [place] [address] Kaitlin Joiner, TOWN CLERK [address] [place] [address] 09/12/2025 10:00 AM EST Office Visit [facility] CARDIOLOGY [address] [facility] [address] [place] [address] Jimmy Duncan MD [address] [facility] [address] [place] [address] documented as of this encounter Procedures Procedure [...] documented as of this encounter Care Teams E Learning Coordinator Relationship Specialty Start Date End Date Marc Rodriguez MD [address] [facility] [address] [place] [address] PCP - General Adolescent Medicine 12/08/16 documented as of this encounter
--- OUTSIDE RECORDS SUMMARY | 2018-08-16 11:42 | XMS_ITS | Encounter Summary ---
Author Organization [facility] Address [address] [place] [address] Care Team Providers Care Inspector Tool Name Role Phone Marc Rodriguez MD Primary Care Provider [phone] Encounter Details Date Type Department Care Team (Late st Contact Info) Description 08/16/2018 10:42 AM EST Hospital Encounter [facility] PULMONARY & CRITICAL CARE MEDICINE [address] [place] [address] Social History Tobacco Use Types Packs/Day Years [...] PULMONARY & CRITICAL CARE MEDICINE [address] [facility] [place] [place] [address] 06/26/2025 10:00 AM EST Office Visit [facility] PULMONARY & CRITICAL CARE MEDICINE [address] [facility] [place] [address] Kaitlin Joiner, OIL PUMP STATION OPERATOR CHIEF [address] [place] [address] 09/12/2025 10:00 AM EST Office Visit [facility] CARDIOLOGY [address] [facility] [address] [place] [id number] Jimmy Duncan MD [address] [facility] [address] [place] [address] documented as of this encounter Procedures Procedure [...] documented as of this encounter Care Teams Inspector Tool Relationship Specialty Start Date End Date Marc Rodriguez MD [address] [place] [id number] PCP - General Adolescent Medicine 12/08/16 documented as of this encounter
--- OUTSIDE RECORDS SUMMARY | 2020-11-12 08:42 | XMS_ITS | Encounter Summary ---
Author Organization [facility] Address [address] [place] [address] Care Team Providers Care Nursing Program Director Name Role Phone Marc Rodriguez MD Primary Care Provider Encounter Details Date Type Department Care Team (Late st Contact Info) Description 11/12/2020 8:42 AM EDT Hospital Encounter [facility] PULMONARY & CRITICAL CARE MEDICINE [address] [facility] [place] [address] Social History Tobacco Use Types Packs/Day Years [...] 06/26/2025 9:30 AM EST Procedure visit [facility] PULMONARY & CRITICAL CARE MEDICINE [address] [place] [address] 06/26/2025 10:00 AM EST Office Visit [facility] PULMONARY & CRITICAL CARE MEDICINE [address] [place] [address] Kaitlin Joiner, SCHOOL OCCUPATIONAL THERAPIST [address] [place] [address] 09/12/2025 10:00 AM EST Office Visit [facility] CARDIOLOGY [address] [facility] [address] [place] [address] Jimmy Duncan MD [address] [facility] [address] [place] [address] documented as of this encounter Procedures Procedure [...] documented as of this encounter Care Teams Nursing Program Director Relationship Specialty Start Date End Date Marc Rodriguez MD [facility] [address] [phone] PCP - General Adolescent Medicine 12/08/16 documented as of this encounter
--- OUTSIDE RECORDS SUMMARY | 2022-07-11 14:36 | XMS_ITS | Encounter Summary ---
Author Organization [facility] Address [address] [place] [address] Care Team Providers Care Medical Imaging Director Name Role Phone Marc Rodriguez MD Primary Care Provider [phone] Encounter Details Date Type Department Care Team (Late Contact Info) Description 07/11/2022 1:36 PM EST Hospital Encounter [facility] PULMONARY & CRITICAL CARE MEDICINE [address] [facility] [place] [place] [address] Social History Tobacco Use Types Packs/Day Years [...] Description 06/26/2025 9:30 AM EST Procedure visit [facility] PULMONARY & CRITICAL CARE MEDICINE [address] [place] [address] 06/26/2025 10:00 AM EST Office Visit [facility] PULMONARY & CRITICAL CARE MEDICINE [address] [place] [address] Kaitlin Joiner, AUTOMATIC PAINT SPRAYER OPERATOR [address] [place] [address] 09/12/2025 10:00 AM EST Office Visit [facility] CARDIOLOGY [address] [facility] [address] [place] [address] Jimmy Duncan MD 3000 [facility] [address] [place] [address] documented as of this encounter Procedures Procedure [...] by Edgardo Cash MD. Kaitlin L Rhys AUTOMATIC PAINT SPRAYER OPERATOR IMG DIAGNOSTIC IMAGING ORDER JORDANA Final Result documented in this encounter Visit Diagnoses Not on filedocumented in this encounter Care Teams Medical Imaging Director Relationship Specialty Start Date End Date Marc Rodriguez MD [facility]0 [facility] [address] [place] [address] PCP - General Adolescent Medicine 12/08/16 documented as of this encounter
--- OUTSIDE RECORDS SUMMARY | 2022-08-27 09:46 | XMS_ITS | Encounter Summary ---
Author Organization [facility] Address [address] [place] [address] Care Team Providers Care Stock Hanger Name Role Phone Marc Rodriguez MD Primary Care Provider [phone] Encounter Details Date Type Department Care Team (Late Contact Info) Description 08/27/2022 8:46 AM EST Hospital Encounter [facility] PULMONARY & CRITICAL CARE MEDICINE [address] [facility] [place] [address] Social History Tobacco Use Types Packs/Day Years [...] Description 06/26/2025 9:30 AM EST Procedure visit [facility] PULMONARY & CRITICAL CARE MEDICINE [address] [place] [address] 06/26/2025 10:00 AM EST Office Visit [facility] PULMONARY & CRITICAL CARE MEDICINE [address] [place] [address] Kaitlin Joiner, ASPHALT PAVING SUPERINTENDENT [address] [place] [address] 09/12/2025 10:00 AM EST Office Visit [facility] CARDIOLOGY [address] [facility] [address] [place] [address] Jimmy Duncan MD 3000 [facility] [address] [place] [address] documented as of this encounter Procedures Procedure [...] Coleman 08/27/2022 1:30 PM EST Workstation ID: [id number] Narrative 08/27/2022 1:30 PM EST XR CHEST [...] Laogan 08/27/2022 1:30 PM EST Workstation ID: [id number] Kaitlin Joiner APRN IMG DIAGNOSTIC IMAGING ORDER JORDANA Final Result documented in this encounter Visit Diagnoses Not on filedocumented in this encounter Care Teams Stock Hanger Relationship Specialty Start Date End Date Marc Rodriguez MD [facility] [address] [facility] [place] [address] PCP - General Adolescent Medicine 12/08/16 documented as of this encounter
--- OUTSIDE RECORDS SUMMARY | 2024-12-30 09:04 | XMS_ITS | Encounter Summary ---
Author Organization [facility] Address [address] [place] [address] Care Team Providers Care Vocational Education Professional Name Role Phone Marc Rodriguez MD Primary Care Provider [phone] Encounter Details Date Type Department Care Team (Late st Contact Info) Description 12/30/2024 9:04 AM EDT Hospital Encounter [facility] PULMONARY & CRITICAL CARE MEDICINE [address] [facility] [address] Social History Tobacco Use Types Packs/Day Years [...] Description 06/26/2025 9:30 AM EST Procedure visit [facility] PULMONARY & CRITICAL CARE MEDICINE [address] [place] [address] 06/26/2025 10:00 AM EST Office Visit [facility] PULMONARY & CRITICAL CARE MEDICINE [address] [place] [address] Kaitlin Joiner, CHIEF STATION ENGINEER [address] [place] [address] 09/12/2025 10:00 AM EST Office Visit [facility] CARDIOLOGY [address] [facility] [address] [place] [address] Jimmy Duncan MD 3000 [facility] [address] [place] [address] documented as of this encounter Procedures Procedure [...] MD 12/30/2024 9:27 AM EDT Workstation ID: [id number] Narrative 12/30/2024 9:27 AM EDT XR CHEST [...] MD 12/30/2024 9:27 AM EDT Workstation ID: [id number] Kaitlin Joiner APRN IMG DIAGNOSTIC IMAGING ORDER JORDANA Final Result documented in this encounter Visit Diagnoses Not on filedocumented in this encounter Care Teams Vocational Education Professional Relationship Specialty Start Date End Date Marc Rodriguez MD 1210 [facility] [address] [facility] [address] PCP - General Adolescent Medicine 12/08/16 documented as of this encounter
--- OUTSIDE RECORDS SUMMARY | 2025-03-08 13:40 | XMS_ITS | Encounter Summary ---
Author Organization Healthcare Address [address] [place] [address] Care Team Providers Care On Call Name Role Phone Marc Rodriguez MD Primary Care Provider [phone] Edgardo Zuñiga MD Unavailable [phone] Giulia Briggs Unavailable [phone] Edgardo Zuñiga MD Unavailable [phone] Esther Mathew Unavailable [phone] Encounter Details Date Type Department Care Team (Late st Contact Info) Description 03/08/2025 1:40 PM EDT Office Visit [facility] [address] [place] [address] Edgardo Zuñiga MD [address] [place] [address] S/P lumbar fusion (Primary Dx) [...] place to sleep or slept in a long-term (including now)? No 05/13/2024 PHQ-9 Answer Date [...] coordination of care. I spent >50% in yejr-ge-guua communication with the patient over the diagnosis, treatment options and plan. Edgardo Zuñiga MD MS Benzene Operator of Neurosurgery Complex and Minimally Invasive Spine Surgery [facility] [address] [place], [address] documented in this encounter Plan of Treatment Upcoming Encounters Date Type Department Care Team (Late st Contact Info) Description 09/11/2025 11:50 AM EST Office Visit Physical Medicine & Rehabilitation Clinic at [facility] [address] [place] [address] Suzan Galindo, [address] [place] [address] 03/07/2026 9:20 AM EDT Office Visit [facility] Orthopaedic Surgery & Sports Medicine [address] [place] [address] Edgardo Zuñiga MD [address] [place] [address] documented as of this encounter [...] documented as of this encounter Care Teams On Call Relationship Specialty Start Date End Date Marc Rodriguez MD [address] [place] [address] PCP - General 12/14/20 Edgardo Zuñiga MD [address] [place] [address] Surgeon Neurosurgery 03/04/21 Giulia Briggs PA [address] [place] [address] Physician Geosciences Associate Professor Neurosurgery 07/03/21 Edgardo Zuñiga MD [address] [place] [address] Surgeon Neurosurgery 09/16/21 Esther Mathew PA [address] [place] [address] Physician Geosciences Associate Professor Neurology 11/19/22 documented as of this encounter
--- OUTSIDE RECORDS SUMMARY | 2025-03-08 14:06 | XMS_ITS | Encounter Summary ---
Author Organization Healthcare Address [address] [place] [address] Care Team Providers Care Kitchen Utility Associate Name Role Phone Marc Rodriguez MD Primary Care Provider [phone] Edgardo Zuñiga MD Unavailable [phone] Giulia Briggs Unavailable [phone] Edgardo Zuñiga MD Unavailable [phone] Esther Mathew Unavailable [phone] Encounter Details Date Type Department Care Team (Latest Contact Info) Description 03/08/2025 2:06 PM EDT - 03/08/2025 11:59 PM EDT Hospital Encounter [place] [facility] [address], [address] [place] [phone] S/P lumbar fusion Discharge Disposition: Home or Self Care Social History Tobacco Use Types Packs/Day Years [...] the past 12 months has th e [employer], gas, oil, or water [employer] threatened to shut off services in your [...] pleasure in doing things Not at all 03/09/2025 1:24 PM EDT Preeti Delacruz Feeling down, depressed, or hopeless Not at all 01/2025 1:24 PM EDT Preeti Delacruz Patient Health Questionnaire-2 Score 0 01/2025 1:24 PM EDT Preeti Delacruz * Calculated C-SSRS Risk Score (Lifetime/Recent) Answer Date of Assessment Author No Risk Indicated 03/09/2025 1:23 PM EDT Gulshan Delacruz * If you checked off any problems on this questionnaire so far, Question Answer Date of Assessment Author How difficult have these problems made it for you to do your work, take care of things at home, or get along with other people? Not difficult at all 03/09/2025 1:24 PM EDT Preeti Delacruz * Question Answer Date of Assessment Author 1. Wish to be (Past 1 Month) No 025 1:23 PM EDT Preeti Delacruz 2. Non-Specific Active Suici arpan Thoughts (Past 1 Month) No 03/09/2025 1:23 PM EDT Preeti Delacruz 6. Suicidal Behavior (Lifetime) No 1:23 PM EDT Preeti Delacruz documented as of this encounter Medications at Time of Discharge acetaminophen (Tylenol) 500 MG tablet Take 2 tablets (1,000 mg) by mouth every 6 (six) hours. albuterol 108 (90 Base) MCG/ACT inhaler INHALE 2 PUFFS BY MOUTH EVERY 4 HOURS NEEDED FOR WHEEZING FOR SHORTNESS OF BREATH 03/03/2025 amLODIPine (Norvasc) 5 MG tablet Take 1 tablet (5 mg) by mouth daily. 08/17/2024 aspirin 81 MG EC tablet Take 1 tablet (81 mg) by mouth daily. calcium carbonate (Tums) 500 MG chewable tablet Chew 1 tablet (500 mg) daily. denosumab (Prolia) 60 MG/ML injection Inject 1 mL (60 mg) under the skin every 6 (six) months. Due May 2024 DULoxetine (Cymbalta) [address] capsule Take 1 capsule (60 mg) by mouth 2 (two) times a day. Fluticasone Furoate-Vilantero l 100-25 MCG/ACT aerosol powder Inhale 1 puff Daily. galcanezumab-gnlm (Emgality) 120 MG/ML injection Inject 1 Syringe (120 mg) under the skin every 30 (thirty) days. 1 each 07/19/2024 5 hydrocortisone (Cortef) 5 MG tablet Take 1 tablet (5 mg) by mouth 2 (two) times a day. Implanted pain pump by Implant route. Dilaudid intrathecal pump at 10 mg/mL with a daily dose of 10.995mg per day. lamoTRIgine (LaMICtal) 100 MG tablet Take 1 tablet (100 mg) by mouth 2 (two) times a day. 180 tablet 3 09/26/2024 6 levothyroxine (Synthroid, Levoxyl) 88 MCG tablet Take 1 tablet (88 mcg) by mouth daily before breakfast. Linzess 72 MCG capsule capsule Take 1 capsule by mouth daily. 10/03/2024 Melatonin 10 MG tablet Take 10 mg by mouth every night. memantine (Namenda) 10 MG tablet Take 1 tablet (10 mg) by mouth 2 (two) times a day. 180 tablet 3 09/26/2024 6 Menthol, Topical Analgesic, (BIOFREEZE EX) Apply topically. montelukast (Singulair) 10 MG tablet Take 1 tablet (10 mg) by mouth nightly. naloxone (Narcan) 4 mg/0.1 mL nasal spray 1. Give 1 spray in nostril for no/slow breathing or cannot wake after opioid use 2. Call 911 3. Repeat in other nostril if symptoms continue 05/27/2024 ondansetron (Zofran) 4 MG tablet Take 1 tablet (4 mg) by mouth every 8 hours as needed for nausea. 07/13/2024 oxyCODONE (Roxicodone) 10 MG immediate release tablet Take 1 tablet (10 mg) by mouth every 4 (four) hours if needed for severe pain. 03/27/2024 pantoprazole (Protonix) 40 MG EC tablet Take 1 tablet (40 mg) by mouth daily. Do not crush, chew, or split. polyethylene glycol (Miralax) 17 GM/SCOOP powder Take 17 g by mouth daily as needed. QUEtiapine (SEROquel) 300 MG tabletIndications :Bipolar Mood Disorder Take 1 tablet (300 mg) by mouth nightly. rosuvastatin (Crestor) 20 MG tablet Take 1 tablet (20 mg) by mouth nightly. simethicone (Mylicon) 80 MG chewable tablet Chew 1 tablet (80 mg) every 6 hours as needed. Trulance 3 MG tablet Take 1 tablet by mouth daily. 10/23/2024 ubrogepant (Ubrelvy) 100 MG tablet TAKE 1 TABLET BY MOUTH ONE TIME NEEDED FOR MIGRAINE. AFTER 2 HOURS, A SECOND DOSE MAY BE TAKEN IF NEEDED. MAX 200MG IN 24 HOURS 10 each 3 12/09/2024 baclofen (Lioresal) 10 MG tablet Take 1 tablet by mouth 4 times a day. 120 tablet 3 12/07/2024 5 busPIRone (Buspar) 5 MG tabletIndications :Total self-care deficit,Impaired cognition Take 1 tablet by mouth 3 times a day. 90 tablet 3 12/07/2024 5 dantrolene (Dantrium) 50 MG capsuleIndication s:Cervical cord compression with myelopathy (CMS/HCC) Take 2 capsules by mouth 4 times a day. 240 capsule 3 12/07/2024 5 diazePAM (Valium) 2 MG tablet Take 1 tablet (2 mg) by mouth every 6 (six) hours if needed (Severe muscle spasm). 03/27/2024 5 donepezil (Aricept) 23 MG tablet Take 1 tablet by mouth once daily 30 tablet 1 03/01/2025 5 Dupilumab (Dupixent) 300 MG/2ML solution auto-injector 5 sodium bicarbonate 650 MG tablet Take 1 tablet (650 mg) by mouth nightly. 5 documented as of this encounter Plan of Treatment Upcoming Encounters Date Type Department Care Team (Late st Contact Info) Description 09/11/2025 11:50 AM EST Office Visit [facility] [address] [place] [address] Suzan Galindo DO [address] [place] [phone] 03/07/2026 9:20 AM EDT Office Visit [facility] Orthopaedic Surgery & Sports Medicine [address] [place] [address] Edgardo Zuñiga MD [address] [place] [address] documented as of this encounter Procedures Procedure Name Priority Date/Time Associated Diagnosis Comments XR LUMBAR SPINE 4 VIEWS TO INCLUDE FLEXION EXTENSION Routine 03/08/2025 2:40 PM EDT S/P lumbar fusion documented in this encounter Results * XR Lumbar Spine 4+ Views w Flexion Extension (03/08/2025 2:40 PM EDT) Anatomical Region Laterality Modality Spine, L-spine Digital Radiogra phy Impressions 03/08/2025 2:48 PM EDT L3-5 posterior fusion with alignment as described. No hardware failure or loosening. No abnormal motion. CRITICAL RESULT: No. COMMUNICATION: Per this written report. Drafted by Subhash Welsh MD on 03/08/2025 2:46 PM Final report signed by Subhash Welsh MD on 03/08/2025 2:48 PM Narrative 03/08/2025 2:48 PM EDT CLINICAL INDICATION: post op TECHNIQUE: XR LUMBAR SPINE 4 VIEWS TO INCLUDE FLEXION EXTENSION COMPARISON: 2022 FINDINGS: Limited evaluation due to overlying stool, soft tissue, and bowel gas. Pain pump overlies the right upper pelvis on the AP view limiting evaluation. Spinal stimulator seen on the left. Thoracolumbar levocurvature. Demineralization. L3-5 posterior fusion with continued L3-4 retrolisthesis and grade 1 L4-5 anterolisthesis. Minimal L2-3 retrolisthesis. No abnormal motion. No hardware failure or loosening. Procedure Note Subhash Welsh MD - 03/08/2025 CLINICAL INDICATION: post op TECHNIQUE: XR LUMBAR SPINE 4 VIEWS TO INCLUDE FLEXION EXTENSION COMPARISON: 2022 FINDINGS: Limited evaluation due to overlying stool, soft tissue, and bowel gas.Pain pump overlies the right upper pelvis on the AP view limitingevaluation. Spinal stimulator seen on the left. Thoracolumbarlevocurvature. Demineralization. L3-5 posterior fusion with continued L3-4retrolisthesis and grade 1 L4-5 anterolisthesis. Minimal L2-3retrolisthesis. No abnormal motion. No hardware failure or loosening. IMPRESSION: L3-5 posterior fusion with alignment as described. No hardware failure orloosening. No abnormal motion. CRITICAL RESULT: No. COMMUNICATION: Per this written report. Drafted by Subhash Welsh MD on 03/08/2025 2:46 PM Final report signed by Subhash Welsh MD on 03/08/2025 2:48 PM Edgardo Zuñiga MD IMG XR PROCEDURES Final Result documented in this encounter Visit Diagnoses Diagnosis S/P lumbar fusion Arthrodesis status documented in this encounter Additional Health Concerns Assessment Noted Time PHQ-9 Depression Total Score: 0 07/05/20 24 10:01 AM EST A fall risk assessment has been complete d for the patient 03/08/2025 2:00 PM EDT A Body Mass Index follow-up plan has been documented for the patient 03/08/2025 4:13 PM EDT documented as of this encounter Care Teams Kitchen Utility Associate Relationship Specialty Start Date End Date Marc Rodriguez MD [address] [place] [address] PCP - General 12/14/20 Edgardo Zuñiga MD [address] [place] [address] Surgeon Neurosurgery 03/04/21 Giulia Briggs PA [address] [place] [address] Physician Cardiac Care Nurse Neurosurgery 07/03/21 Edgardo Zuñiga MD [address] [place] [address] Surgeon Neurosurgery 09/16/21 Esther Mathew PA [address] [place] [address] Physician Cardiac Care Nurse Neurology 11/19/22 documented as of this encounter
--- OUTSIDE RECORDS SUMMARY | 2025-03-09 13:20 | XMS_ITS | Encounter Summary ---
Author Organization Healthcare Address [address] [place] [address] Care Team Providers Care Investor Relations Specialist Name Role Phone Marc Rodriguez MD Primary Care Provider [phone] Edgardo Zuñiga MD Unavailable [phone] Giulia Briggs PA Unavailable [phone] Edgardo Zuñiga MD Unavailable [phone] Esther Mathew Unavailable [phone] Reason for Visit * Reason Comments Follow-up Encounter Details Date Type Department Care Team (Late st Contact Info) Description 03/09/2025 1:20 PM EDT Office Visit Physical Medicine & Rehabilitation Clinic at [facility] [address] [place] [address] Suzan Galindo DO [address] [facility] [address] [place] [address] High risk medication use (Primary [...] place to sleep or slept in a retirement (including now)? No 05/13/2024 PHQ-9 Answer Date [...] be a TIA. Pt then transitioned to [facility] for inpatient rehab with then dc [...] groomed, in no acute distress, sitting in [facility] Ear, Nose, Mouth and Throat: Atraumatic, normocephalic, [...] Visit Physical Medicine & Rehabilitation Clinic at [facility] [address] [place] [address] Suzan Galindo, [address] [place] [address] 03/07/2026 9:20 AM EDT Office Visit [facility] Orthopaedic Surgery & Sports Medicine [address] [place] [address] Edgardo Zuñiga MD [address] [place] [address] documented as of this encounter Results * (ABNORMAL) Comprehensive metabolic panel (03/09/2025 2:40 PM EDT) Glucose, Plasma 91 74 - 99 mg/dL 03/09/2025 5:10 PM EDT [facility] BUN, Plasma 14 8 - 23 mg/dL 03/09/2025 5:10 PM EDT [facility] Creatinine, Plasma 0.73 0.60 - 1.10 mg/dL 03/09/2025 5:10 PM EDT [facility] BUN/Creatinine Ratio 19 03/09/2025 5:10 PM EDT [facility] Sodium, Plasma 144 136 - 145 mmol/L 03/09/2025 5:10 PM EDT [facility] Potassium, Plasma 5.1(H) 3.6 - 4.9 mmol/L 03/09/2025 5:10 PM EDT [facility] Chloride, Plasma 106 97 - 107 mmol/L 03/09/2025 5:10 PM EDT [facility] CO2, Plasma 28 22 - 29 mmol/L 03/09/2025 5:10 PM EDT [facility] Anion Gap 10 6 - 16 mmol/L 03/09/2025 5:10 PM EDT [facility] Total Calcium, Plasma 9.8 8.9 - 10.2 mg/dL 03/09/2025 5:10 PM EDT [facility] Total Protein 6.6 6.3 - 7.9 g/dL 03/09/2025 5:10 PM EDT [facility] Albumin, Plasma 3.8 3.5 - 5.2 g/dL 03/09/2025 5:10 PM EDT [facility] AST, Plasma 77(H) 10 - 35 U/L 03/09/2025 5:10 PM EDT [facility] ALT, Plasma 38(H) 10 - 35 U/L 03/09/2025 5:10 PM EDT [facility] Alkaline Phosphatase, Plasma 140 46 - 142 U/L 03/09/2025 5:10 PM EDT [facility] Total Bilirubin, Plasma 0.7 0.2 - 1.1 mg/dL 03/09/2025 5:10 PM EDT [facility] eGFRcr 88.0 mL/min/1.7 3m*2 03/09/2025 5:10 PM EDT [facility] Comment:Reported eGFRcr in m L/min/1.73m2 is based the CKD-EPI 2020 equation that does not use a race coefficient. Blood Venous blood specimen / Unknown Venipuncture / Unknown 03/09/2025 2:40 PM EDT 03/09/2025 2:40 PM EDT Suzan Sanchez DO LAB BLOOD ORDERABLES Final Result [facility] [address] [place] [address] documented in this encounter Visit Diagnoses Diagnosis [...] documented as of this encounter Care Teams Investor Relations Specialist Relationship Specialty Start Date End Date Marc Rodriguez MD [address] [place] [address] PCP - General 12/14/20 Edgardo Zuñiga MD [address] [place] [address] Surgeon Neurosurgery 03/04/21 Giulia Briggs PA [address] [place] [address] Physician Pump Installation And Servicer Neurosurgery 07/03/21 Edgardo Zuñiga MD [address] [place] [address] Surgeon Neurosurgery 09/16/21 Esther Mathew PA [address] [place] [address] Physician Pump Installation And Servicer Neurology 11/19/22 documented as of this encounter
--- OUTSIDE RECORDS SUMMARY | 2025-03-13 09:45 | XMS_ITS | Encounter Summary ---
Author Organization [facility] [address] Address [address] [place] [address] Care Team Providers Care Cash Checker Name Role Phone Marc Rodriguez MD Primary Care Provider [phone] Reason for Visit * Reason Comments Hypertension Hyperlipidemia Encounter Details Date Type Department Care Team (Latest Contact Info) Description 03/13/2025 9:45 AM EDT Office Visit [facility] CARDIOLOGY [address] [place] [phone] Jimmy Duncan MD [address] [facility] [address] [id number] Primary hypertension (Primary Dx); Hyperlipidemia LDL goal [...] reassessed in 6 months. Discussed with patient [place] [employer] and [place] [employer] provide detailed guidelines for accurate [...] PCP: Marc Rodriguez MD Date: 03/13/2025 Department: [facility] CARDIOLOGY [address] [facility] [address] Chief Complaint Patient presents with Hypertension Hyperlipidemia [...] Procedure Laterality Date APPENDECTOMY 1973 BREAST BIOPSY [id number] multiple CARDIAC CATHETERIZATION 03/13/2009 AE @ [facility]- [...] Date/Time: 03/13/2025 9:53 AM Performed by: Jimmy uDncan MD Authorized by: Jimmy Duncan MD Comparison: [...] reassessed in 6 months. Discussed with patient [place] and [place] [employer] provide detailed guidelines for accurate [...] any significant symptoms or go to the [facility] Emergency room if possible. Jimmy Duncan MD, [facility]. [place] [facility] Part of this note may be an electronic siphoner/translation of spoken language to printed textusing the Utility Fundingation System. documented in this encounter Plan of Treatment Upcoming Encounters Date Type Department Care Team (Late st Contact Info) Description 06/26/2025 9:30 AM EST Procedure visit [facility] PULMONARY & CRITICAL CARE MEDICINE [address] [facility] [place] [address] 06/26/2025 10:00 AM EST Office Visit [facility] PULMONARY & [facility]ICAL [facility]ARE MEDICINE [address] [facility] [place] [address] Kaitlin Joiner, TORI [address] [place] [address] 09/12/2025 10:00 AM EST Office Visit [facility] CARDIOLOGY [address] [place] [phone] Jimmy Duncan MD [address] [facility] [address] [place] [address] Scheduled Orders Name Type Priority Associated Diagnoses [...] PCP: Marc Rodriguez MD Date: 03/13/2025 Department: [facility] CARDIOLOGY [address] [facility] [address] Chief Complaint Patient presents with Hypertension Hyperlipidemia [...] Procedure Laterality Date APPENDECTOMY 1973 BREAST BIOPSY [id number] multiple CARDIAC CATHETERIZATION 03/13/2009 AE @ [facility]- [...] reassessed in 6 months. Discussed with patient [place] and [place] [employer] provide detailed guidelines for accurate blood pressuremeasurement. Ghotra steps for proper blood pressure measurement [...] any significant symptoms or go to the [facility] Emergencyroom if possible. Jimmy Duncan MD, [facility]. [place] [facility] Part of this note may be an electronic siphoner/translation of spokenlanguage to printed text using the Utility Fundingation System. us Jimmy Duncan MD ECG ORDERABLES Final Result documented in this encounter Visit Diagnoses Diagnosis Primary hypertension- Primary Unspecified essential hypertension Hyperlipidemia LDL goal <100 Other and unspecified hyperlipidemia Chronic venous insufficiency of lower extremity documented in this encounter Care Teams Cash Checker Relationship Specialty Start Date End Date Marc Rodriguez MD [address] [facility] [address] [place] [address] PCP - General Adolescent Medicine 12/08/16 documented as of this encounter
--- NOTE | 2025-04-18 14:56 | MM_ITS ---
PROCEDURE INFORMATION: Exam: MG Bilateral Screening 3D Mammography Exam date and time: 04/18/2025 3:07 PM Age: 69 years old Clinical indication: Screening examination TECHNIQUE: Imaging protocol: Bilateral Screening tomosynthesis and 2D mammography including computer-aided detection (CAD) when performed. COMPARISON: 1. MG MM DIG SCREENING MAMM BI W/CAD 04/29/2019 11:01 AM 2. MG DMSB DIG MAMM-SCREEN YONNY 09/26/2015 10:06 AM FINDINGS: MAMMOGRAPHY: Breast composition: There are scattered areas of fibroglandular density. Mass: No suspicious masses. Architectural distortion: None. Calcifications: No suspicious calcifications. Asymmetric density: None. Skin thickening: None. Axillary adenopathy: None. IMPRESSION: No mammographic evidence of malignancy. Annual screening is recommended unless otherwise clinically indicated. ASSESSMENT: BI-RADS Category 1: Negative.
--- OUTSIDE RECORDS SUMMARY | 2025-04-18 14:56 | XMS_ITS | Encounter Summary ---
Author Organization [facility] Address [address] [place] [address] Care Team Providers Care Emergency Manager Name Role Phone Marc Rodriguez MD Primary Care Provider [phone] Edgardo Zuñiga MD Unavailable [phone] Giulia Briggs Unavailable [phone] Edgardo Zuñiga MD Unavailable [phone] Esther Mathew Unavailable [phone] Encounter Details Date Type Department Care Team [...] [facility] [address] [place] [address] Suzan Galindo DO [address] [place] [address] 03/07/2026 9:20 AM EDT Office Visit [facility] Orthopaedic Surgery & Sports Medicine [address] [place] [phone] Edgardo Zuñiga MD [address] [place] [phone] documented as of this encounter Visit Diagnoses [...] documented as of this encounter Care Teams Emergency Manager Relationship Specialty Start Date End Date Marc Rodriguez MD [address] [place] [address] PCP - General 12/14/20 Edgardo Zuñiga MD [address] [place] [address] Surgeon Neurosurgery 03/04/21 Giulia Briggs PA [address] [place] [address] Physician Tsa Screener Neurosurgery 07/03/21 Edgardo Zuñiga MD [address] [place] [phone] Surgeon Neurosurgery 09/16/21 Esther Mathew PA [address] [place] [phone] Physician Tsa Screener Neurology 11/19/22 documented as of this encounter
--- OUTSIDE RECORDS SUMMARY | 2025-04-18 14:56 | XMS_ITS | Encounter Summary ---
Author Organization [facility] Address [address] [place] [address] Care Team Providers Care Deputy Probation Officer Name Role Phone Marc Rodriguez MD Primary Care Provider [phone] Encounter Details Date Type Department Care Team (Late st Contact Info) Description 05/17/2019 External CPT II [employer] SUPERVISOR [facility] [employer] Social History Tobacco Use [...] PULMONARY & CRITICAL CARE MEDICINE [address] [place] [address] 06/26/2025 10:00 AM EST Office Visit [facility] PULMONARY & CRITICAL CARE MEDICINE [address] [place] [address] Kaitlin Joiner, TORI [address] [place] [address] 09/12/2025 10:00 AM EST Office Visit [facility] CARDIOLOGY [address] [facility] [address] [place] [phone] Jimym Duncan MD [address] [place] [address] documented as of this encounter Visit Diagnoses [...] documented as of this encounter Care Teams Deputy Probation Officer Relationship Specialty Start Date End Date Marc Rodriguez MD [address] [facility] [address] [facility] [address] PCP - General Adolescent Medicine 12/08/16 documented as of this encounter
--- OUTSIDE RECORDS SUMMARY | 2025-04-18 14:56 | XMS_ITS | Encounter Summary ---
Author Organization Healthcare Address [address] [place] [address] Care Team Providers Care Paint Roller Covers Supervisor Name Role Phone Marc Rodriguez MD Primary Care Provider [phone] Edgardo Zuñiga MD Unavailable [phone] Giulia Briggs Unavailable [phone] Edgardo Zuñiga MD Unavailable [phone] Esther Mathew Unavailable [phone] Encounter Details Date Type Department Care Team (Late st Contact Info) Description 03/10/2025 Results Follow-Up Physical Medicine & Rehabilitation Clinic at [facility] [address] [place] [address] Suzan Galindo DO [address] [facility] [address] [place] [address] Social History Tobacco Use Types [...] the past 12 months has th e [employer], gas, oil, or water [employer] threatened to shut off services in your [...] [facility] at [facility] [address] [place] [address] Suzan Galindo DO [address] [place] [address] 03/07/2026 9:20 AM EDT Office Visit [facility] Orthopaedic Surgery & Sports Medicine [address] 1[address] [place] [address] Edgardo Zuñiga MD [address] [place] [address] documented as of this encounter [...] documented as of this encounter Care Teams Paint Roller Covers Supervisor Relationship Specialty Start Date End Date Marc Rodriguez MD [address] [place], [place] [id number] PCP - General 12/14/20 Edgardo Zuñiga MD [address] [place] [address] Surgeon Neurosurgery 03/04/21 Giulia Briggs PA [address] [place] [address] Physician Supervisor White Sugar Neurosurgery 07/03/21 Edgardo Zuñiga MD [address] [place] [address] Surgeon Neurosurgery 09/16/21 Esther Mathew PA [address] [place] [address] Physician Supervisor White Sugar Neurology 11/19/22 documented as of this encounter
--- OUTSIDE RECORDS SUMMARY | 2025-04-18 14:56 | XMS_ITS | Encounter Summary ---
Author Organization [facility] Address [address] [place] [address] Care Team Providers Care Outpatient Services Director Name Role Phone Marc Rodriguez MD Primary Care Provider [phone] Encounter Details Date Type Department Care Team (Late st Contact Info) Description 07/15/2019 External CPT II WASTE PICKER - [facility] Social History Tobacco Use [...] PULMONARY & CRITICAL CARE MEDICINE [address] [place] [address] 06/26/2025 10:00 AM EST Office Visit [facility] PULMONARY & CRITICAL CARE MEDICINE [address] [place] [address] Kaitlin Joiner, TORI [address] [place] [address] 09/12/2025 10:00 AM EST Office Visit [facility] CARDIOLOGY [address] [facility] [address] [place] [address] Jimmy Duncan MD [address] [facility] [address] [place] [address] documented as of this encounter Visit Diagnoses [...] documented as of this encounter Care Teams Outpatient Services Director Relationship Specialty Start Date End Date Marc Rodriguez MD 1210 [facility] [address] [place] [facility] [place] [id number] PCP - General Adolescent Medicine 12/08/16 documented as of this encounter
--- OUTSIDE RECORDS SUMMARY | 2025-04-18 14:56 | XMS_ITS | Encounter Summary ---
Author Organization Healthcare Address [address] [place] [address] Care Team Providers Care Ornamental Metal Worker Apprentice Name Role Phone Marc Rodriguez MD Primary Care Provider [phone] Edgardo Zuñiga MD Unavailable [phone] Giulia Briggs Unavailable [phone] Edgardo Zuñiga MD Unavailable [phone] Esther Mathew Unavailable [phone] Reason for Visit * Reason Comments Med Refill Encounter Details Date Type Department Care Team (Late st Contact Info) Description 02/28/2025 Refill [place] [facility] [address] [place] [address] Esther Mathew PA [address] [place] [address] Social History Tobacco Use Types [...] the past 12 months has th e [employer], gas, oil, or water [employer] threatened to shut off services in your [...] Visit Physical Medicine & Rehabilitation Clinic at [facility] [address] [place] [address] Suzan Galindo DO [address] [place] [address] 03/07/2026 9:20 AM EDT Office Visit [facility] Orthopaedic Surgery & Sports Medicine [address] 1[address] [place] [address] Edgardo Zuñiga MD [address] [facility] [address] [place] [address] documented as of this encounter [...] documented as of this encounter Care Teams Ornamental Metal Worker Apprentice Relationship Specialty Start Date End Date Marc Rodriguez MD [address] [place] [address] PCP - General 12/14/20 Edgardo Zuñiga MD [address] [place] [address] Surgeon Neurosurgery 03/04/21 Giulia Briggs PA [address] [place] [address] Physician Search Director Neurosurgery 07/03/21 Edgardo Zuñiga MD [address] [place] [address] Surgeon Neurosurgery 09/16/21 Esther Mathew PA [address] [place] [address] Physician Search Director Neurology 11/19/22 documented as of this encounter
--- OUTSIDE RECORDS SUMMARY | 2025-04-18 14:56 | XMS_ITS | Encounter Summary ---
Author Organization [facility] Address [address] [place] [address] Care Team Providers Care Gas Plant Technician Name Role Phone Marc Rodriguez MD Primary Care Provider [phone] Encounter Details Date Type Department Care Team (Late st Contact Info) Description 11/26/2018 External CPT II COIL REPAIR TECHNICIAN - [facility] Social History Tobacco [...] PULMONARY & CRITICAL CARE MEDICINE [address] [place] [address] 06/26/2025 10:00 AM EST Office Visit [facility] PULMONARY & CRITICAL CARE MEDICINE [address] [place] [address] Kaitlin Joiner, HIM DIRECTOR [address] [place] [address] 09/12/2025 10:00 AM EST Office Visit [facility] CARDIOLOGY [address] [facility] [address] [place] [address] Jimmy Duncan MD [address] [facility] [address] [place] [address] documented as of this encounter Visit Diagnoses [...] as of this encounter Care Teams Gas Plant Technician Relationship Specialty Start Date End Date Marc Rodriguez MD 1210 [facility] [address] [place] [facility] [place] [address] PCP - General Adolescent Medicine 12/08/16 documented as of this encounter
--- OUTSIDE RECORDS SUMMARY | 2025-04-18 14:56 | XMS_ITS | Encounter Summary ---
Author Organization Healthcare Address [address] [place] [address] Care Team Providers Care Clinical Engineering Director Name Role Phone Marc Rodriguez MD Primary Care Provider [phone] Edgardo Zuñiga MD Unavailable [phone] Giulia Briggs Unavailable [phone] Edgardo Zuñiga MD Unavailable [phone] Esther Mathew Unavailable [phone] Encounter Details Date Type Department Care Team (Late st Contact Info) Description 03/07/2025 Orders Only [place] [facility] [address] 1[address] [place] [address] Edgardo Zuñiga MD [address] [place] [address] S/P lumbar fusion (Primary Dx) [...] the past 12 months has th e [employer], gas, oil, or water [employer] threatened to shut off services in your [...] Physical Medicine & Rehabilitation Clinic at [facility] [address] [place] [address] Suzan Galindo DO [address] [place] [address] 03/07/2026 9:20 AM EDT Office Visit [facility] Orthopaedic Surgery & Sports Medicine [address] 1[address] [place] [address] Edgardo Zuñiga MD [address] [place] [address] documented as of this encounter [...] documented as of this encounter Care Teams Clinical Engineering Director Relationship Specialty Start Date End Date Marc Rodriguez MD [address] [place] [address] PCP - General 12/14/20 Edgardo Zuñiga MD [address] [place] [address] Surgeon Neurosurgery 03/04/21 Giulia Briggs PA [address] [place] [address] Physician Thermal Cutting Tracer Machine Operator Neurosurgery 07/03/21 Edgardo Zuñiga MD [address] [place] [address] Surgeon Neurosurgery 09/16/21 Esther Mathew PA [address] [place] [address] Physician Thermal Cutting Tracer Machine Operator Neurology 11/19/22 documented as of this encounter
--- OUTSIDE RECORDS SUMMARY | 2025-04-18 14:56 | XMS_ITS | Encounter Summary ---
Author Organization [facility] Address [address] [place] [address] Care Team Providers Care Physician Relations Representative Name Role Phone Marc Rodriguez MD Primary Care Provider [phone] Encounter Details Date Type Department Care Team (Late st Contact Info) Description 12/14/2018 External CPT II JAPANESE INTERPRETER - [facility] Social History Tobacco Use [...] 06/26/2025 9:30 AM EST Procedure visit [facility] PULMONARY & CRITICAL CARE MEDICINE [address] [place] [address] 06/26/2025 10:00 AM EST Office Visit [facility] PULMONARY & CRITICAL CARE MEDICINE [address] [place] [address] Kaitlin Joiner, MACHINE CAGE MAKER [address] [place] [address] 09/12/2025 10:00 AM EST Office Visit [facility] CARDIOLOGY [address] [facility] [address] [place] [address] Jimmy Duncan MD 3000 [facility] [address] [place] [address] documented as of this encounter Visit Diagnoses [...] documented as of this encounter Care Teams Physician Relations Representative Relationship Specialty Start Date End Date Marc Rodriguez MD 1210 [facility] [address] [facility] [place] [address] PCP - General Adolescent Medicine 12/08/16 documented as of this encounter
--- OUTSIDE RECORDS SUMMARY | 2025-04-18 14:56 | XMS_ITS | Encounter Summary ---
Author Organization [facility] Address [address] [place] [address] Care Team Providers Care Social Worker Assistant Name Role Phone Marc Rodriguez MD Primary Care Provider [phone] Edgardo Zuñiga MD Unavailable [phone] Giulia Briggs Unavailable [phone] Edgardo Zuñiga MD Unavailable [phone] Esther Mathew Unavailable [phone] Encounter Details Date Type Department Care Team [...] Visit Physical Medicine & Rehabilitation Clinic at [facility] [address] [place] [address] Suzan Galindo DO [address] [place] [address] 03/07/2026 9:20 AM EDT Office Visit [facility] Orthopaedic Surgery & Sports Medicine [address] 1[address] [place] [address] Edgardo Zuñiga MD [address] [facility] [address] [place] [address] documented as of this encounter [...] documented as of this encounter Care Teams Social Worker Assistant Relationship Specialty Start Date End Date Marc Rodriguez MD [address] [place] [address] PCP - General 12/14/20 Edgardo Zuñiga MD [address] [place] [address] Surgeon Neurosurgery 03/04/21 Giulia Briggs PA [address] [place] [address] Physician Jacquard Card Cutter Neurosurgery 07/03/21 Edgardo Zuñiga MD [address] [place] [address] Surgeon Neurosurgery 09/16/21 Esther Mathew PA [address] [place] [address] Physician Jacquard Card Cutter Neurology 11/19/22 documented as of this encounter
--- OUTSIDE RECORDS SUMMARY | 2025-04-18 14:56 | XMS_ITS | Encounter Summary ---
Author Organization 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 - [facility] Social History Tobacco Use [...] PULMONARY & CRITICAL CARE MEDICINE [address] [place] [address] 06/26/2025 10:00 AM EST Office Visit [facility] PULMONARY & CRITICAL CARE MEDICINE [address] [place] [address] Kaitlin Joiner, TORI [address] [place] [address] 09/12/2025 10:00 AM EST Office Visit [facility] CARDIOLOGY [address] [facility] [address] [place] [address] Jimmy Duncan MD 3000 [facility] [address] [place] [address] documented as of this encounter Visit Diagnoses [...] documented as of this encounter Care Teams Store Receiving Clerk Relationship Specialty Start Date End Date Marc Rodriguez MD [address] [facility] [address] [facility] [place] [address] PCP - General Adolescent Medicine 12/08/16 documented as of this encounter
--- OUTSIDE RECORDS SUMMARY | 2025-04-18 14:56 | XMS_ITS | Encounter Summary ---
Author Organization Healthcare Address [address] [place] [address] Care Team Providers Care Human Projectile Name Role Phone Marc Rodriguez MD Primary Care Provider [phone] Edgardo Zuñiga MD Unavailable [phone] Giulia Briggs Unavailable [phone] Edgardo Zuñiga MD Unavailable [phone] Esther Mathew Unavailable [phone] Encounter Details Date Type Department Care Team (Late st Contact Info) Description 03/10/2025 Orders Only Physical Medicine & Rehabilitation Clinic at [facility] [address] [place] [address] Suzan Galindo DO [address] [place] [address] Social History Tobacco Use Types [...] the past 12 months has th e [employer], gas, oil, or water company threatened to [...] [facility] [address] [place] [address] Ryan LauraSuzan matt, DO [address] [place] [address] 03/07/2026 9:20 AM EDT Office Visit [facility] Orthopaedic Surgery & Sports Medicine [address] 1[address] [place] [address] Edgardo Zuñiga MD [address] [place] [address] documented as of this encounter [...] documented as of this encounter Care Teams Human Projectile Relationship Specialty Start Date End Date Marc Rodriguez MD 1210 [facility] [address] [place] [address] PCP - General 12/14/20 Edgardo Zuñiga MD [address] [place] [address] Surgeon Neurosurgery 03/04/21 Giulia Briggs PA [address] [place] [address] Physician Equity Sales Assistant Neurosurgery 07/03/21 Edgardo Zuñiga MD [address] [place] [address] Surgeon Neurosurgery 09/16/21 Esther Mathew PA [address] [address] Physician Equity Sales Assistant Neurology 11/19/22 documented as of this encounter
--- OUTSIDE RECORDS SUMMARY | 2025-04-18 14:56 | XMS_ITS | Encounter Summary ---
Author Organization Healthcare Address [address] [place] [address] Care Team Providers Care Truck Repair Supervisor Name Role Phone Marc Rodriguez MD Primary Care Provider [phone] Edgardo Zuñiga MD Unavailable [phone] Giulia Briggs Unavailable [phone] Edgardo Zuñiga MD Unavailable [phone] Esther Mathew Unavailable [phone] Reason for Visit * Reason Onset Date Comments Med Refill 03/10/2025 Encounter Details Date Type Department Care Team (Late st Contact Info) Description 03/10/2025 Refill Physical Medicine & Rehabilitation Clinic at [facility] [address] [place] [address] Suzan Galindo DO 20[address] [facility] [address] [place] [address] Social History Tobacco Use Types [...] [facility] [address] [place] [address] Ryan LauraSuzan mattDO [address] [place] [address] 03/07/2026 9:20 AM EDT Office Visit [facility] Orth[facility] Surgery [facility] Medicine [address], 1[address] [place] [address] Edgardo Zuñiga MD [address] [place] [address] documented as of this encounter [...] documented as of this encounter Care Teams Truck Repair Supervisor Relationship Specialty Start Date End Date Marc Rodriguez MD [address] [place] [address] PCP - General 12/14/20 Edgardo Zuñiga MD [address] [place] [address] Surgeon Neurosurgery 03/04/21 Giulia Briggs PA [address] [place] [address] Physician Fire Fighter Neurosurgery 07/03/21 Edgardo Zuñiga MD [address] [place] [address] Surgeon Neurosurgery 09/16/21 Esther Mathew PA [address] [place] [address] Physician Fire Fighter Neurology 11/19/22 documented as of this encounter
--- OUTSIDE RECORDS SUMMARY | 2025-04-18 14:56 | XMS_ITS | Encounter Summary ---
Author Organization Healthcare Address [address] [place] [address] Care Team Providers Care Scrap Collector Name Role Phone Marc Rodriguez MD Primary Care Provider [phone] Edgardo Zuñiga MD Unavailable [phone] Giulia Briggs Unavailable [phone] Edgardo Zuñiga MD Unavailable [phone] Esther Mathew Unavailable [phone] Reason for Visit * Reason Onset Date Comments HCN Clinical Concern/Question 04/07/2025 Encounter Details Date Type Department Care Team (Late st Contact Info) Description 04/07/2025 Telephone Physical Medicine & Rehabilitation [facility] at [facility] [address] [place] [address] Suzan Galindo DO [address] [facility] [address] [place] [address] HCN Clinical Concern/Question Social History [...] * Telephone Encounter - Preeti Delacruz - 04/10/2025 2:18 PM EDT Called pt back and relayed message * Telephone Encounter - Suzan Galindo DO - 04/10/2025 1:36 PM EDT Ok keep the same dosing * Telephone Encounter - Preeti Delacruz - 04/10/2025 1:01 PM EDT I called pt and let her know she said she is actually taking 50 mg 1tab 4x a day * Telephone Encounter - Suzan Galindo DO - 04/10/2025 12:23 PM EDT Ok sounds good. We will keep the current dantrolene dose and then needs fu labs in 1 month, ask herto call us to get an order then. * Telephone Encounter - Preeti Delacruz - 04/10/2025 11:56 AM EDT I spoke with pt, yes someone send in an antibiotic for pt. Pt is taking dantrolene 50mg 1tab twice a day. * Telephone Encounter - Suzan Galindo DO - 04/10/2025 11:07 AM EDT Did anyone treat her UTI? I reviewed her liver functions, they are mildly elevated but better than the one in March. How much dantrolene is she taking now? We will need to repeat labs in a month to make sure it is staying stable. thanks * Telephone Encounter - Preeti Delacruz - 04/10/2025 8:38 AM EDT Spoke with pt, I received it this morning will leave it on your desk * Telephone Encounter - Dolly Mills - 04/07/2025 3:24 PM EDT Clinical Concern/Question Reason for Call: patient is requesting a call back regarding if Dr. Sanchez received her lab results Best contact number: [phone] (mobile) Optimal time of day to reach caller: ANYTIME Additional comments/information from caller: None Note: Please do not reply to this message. Follow-up communication and further actions as a result of this message need to be communicated with the patient directly, if the patient is not active onMyChart. If the patient is active on MyChart, they will receive notification of the communication/outcome via [employer]. documented in this encounter Plan of Treatment Upcoming Encounters Date Type Department Care Team (Late st Contact Info) Description 09/11/2025 11:50 AM EST Office Visit [facility] [address] [address] Suzan Galindo DO [address] [facility] [address] [place] [address] 03/07/2026 9:20 AM EDT Office Visit [facility] Medicine [address], 1st [address] [place] [address] Edgardo Zuñiga MD [address] [place] [address] documented as of this encounter [...] documented as of this encounter Care Teams Scrap Collector Relationship Specialty Start Date End Date Marc Rodriguez MD [address] [place] [address] PCP - General 12/14/20 Edgardo Zuñiga MD [address] [place] [address] Surgeon Neurosurgery 03/04/21 Giulia Briggs PA [address] [place] [address] Physician Tax Manager Neurosurgery 07/03/21 Edgardo Zuñiga MD [address] [place] [address] Surgeon Neurosurgery 09/16/21 Esther Mathew PA [address] [place] [address] Physician Tax Manager Neurology 11/19/22 documented as of this encounter
--- OUTSIDE RECORDS SUMMARY | 2025-04-18 14:57 | XMS_ITS | Encounter Summary ---
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 - [facility] Social History Tobacco Use [...] Description 06/26/2025 9:30 AM EST Procedure visit [facility] PULMONARY & CRITICAL CARE MEDICINE [address] [place] [address] 06/26/2025 10:00 AM EST Office Visit [facility] PULMONARY & CRITICAL CARE MEDICINE [address] [place] [address] Kaitlin Joiner, WELDER [address] [place] [address] 09/12/2025 10:00 AM EST Office Visit [facility]OLOGY [address] [facility] [address] [place] [address] Jimmy Duncan MD 3000 [facility] [address] [place] [address] documented as of this encounter Visit Diagnoses [...] documented as of this encounter Care Teams Fruit Packer Face And Fill Relationship Specialty Start Date End Date Marc Rodriguez MD 1210 [facility] [address] [place] [address] PCP - General Adolescent Medicine 12/08/16 documented as of this encounter
--- OUTSIDE RECORDS SUMMARY | 2025-04-18 14:57 | XMS_ITS | Encounter Summary ---
Author Organization Healthcare Address [address] [place] [address] Care Team Providers Care Fountain Vending Mechanic Name Role Phone Marc Rodriguez MD Primary Care Provider [phone] Edgardo Zuñiga MD Unavailable [phone] Giulia Briggs Unavailable [phone] Edgardo Zuñiga MD Unavailable [phone] Esther Mathew Unavailable [phone] Reason for Visit * Reason Onset Date Comments Med Refill 07/05/2024 Encounter Details Date Type Department Care Team (Late st Contact Info) Description 07/05/2024 [facility]ill [facility] [address], 1[address] [place] [address] Esther Mathew PA [address] [place] [address] Social History Tobacco Use Types [...] place to sleep or slept in a group home (including now)? No 05/13/2024 PHQ-9 Answer Date Recorded Patient Health Questionnaire-9 Score 0 07/05/2024 Utilities Answer Date Recorded In the past 12 months has th e [employer], gas, oil, or water company threatened to [...] Visit [facility] & Rehabilitation Clinic at [facility] [address] [address] Suzan Galindo DO [address] [place] [address] 03/07/2026 9:20 AM EDT Office Visit [facility] Orth[facility] Surgery & Sports Medicine [address], 1[address] [place] [address] Edgardo Zuñiga MD [address] [place] [address] documented as of this encounter [...] documented as of this encounter Care Teams Fountain Vending Mechanic Relationship Specialty Start Date End Date Marc Rodriguez MD [address] [place] [address] PCP - General 12/14/20 Edgardo Zuñiga MD [address] [place] [address] Surgeon Neurosurgery 03/04/21 Giulia Briggs PA [address] [place] [address] Physician Telecommunications Line Installer Neurosurgery 07/03/21 Edgardo Zuñiga MD [address] [place] [address] Surgeon Neurosurgery 09/16/21 Esther Mathew PA [address] [place] [address] Physician Telecommunications Line Installer Neurology 11/19/22 documented as of this encounter
--- OUTSIDE RECORDS SUMMARY | 2025-04-18 14:57 | XMS_ITS | Encounter Summary ---
Author Organization [facility] Address [address] [place] [address] Care Team Providers Care Head Machine Feeder Name Role Phone Marc Rodriguez MD Primary Care Provider [phone] Reason for Visit * Reason Onset Date Comments DR. GOSS - MARIE ORDERS 03/07/2025 Encounter Details Date Type Department Care Team (Late st Contact Info) Description 03/07/[address] [facility] CARDIOLOGY [address] [facility] [address] [place] [address] Jimmy Goss MD [address] [facility] [address], [place] [address] DR. GOSS - MARIE ORDERS Social History Tobacco Use Types Packs/Day [...] 03/07/2025 9:23 AM EDT FAXED ORDERS TO [facility] @ [phone] * Telephone Encounter - Jono Soler RegSched Rep - 03/07/2025 8:25 AM EDT Caller: Sandie Frank Relationship: Self Best call back number: [phone] What orders are you requesting (i.e. lab or imaging): LAB ORDERS In what timeframe would the patient need to come in: ASHLEY Where will you receive your lab/imaging services: [facility] Additional notes: PT SAYS FACILITY HAS NOT RECEIVED THESE ORDERS YET. PLEASE RESEND THESE ORDERS WHEN AVAILABLE TO [phone]. PLEASE CALL PT AFTER THIS HAS BEEN DONE. documented in this encounter Plan of Treatment Upcoming Encounters Date Type Department Care Team (Late st Contact Info) Description 06/26/2025 9:30 AM EST Procedure visit [facility] PULMONARY & CRITICAL CARE MEDICINE [address] [place] [address] 06/26/2025 10:00 AM EST Office Visit [facility] PULMONARY & CRITICAL CARE MEDICINE [address] [place] [address] Kaitlin Joiner, TRACK REPAIRER [address] [place] [address] 09/12/2025 10:00 AM EST Office Visit [facility] CARDIOLOGY [address] [facility] [address] [place] [address] Jimmy Goss MD [address] [facility] [address] [place] [address] documented as of this encounter Visit Diagnoses Not on filedocumented in this encounter Care Teams Head Machine Feeder Relationship Specialty Start Date End Date Marc Rodriguez MD [address] [facility] [address] [place] [address] PCP - General Adolescent Medicine 12/08/16 documented as of this encounter
--- OUTSIDE RECORDS SUMMARY | 2025-04-18 14:57 | XMS_ITS | Encounter Summary ---
[facility] Address [address] [place] [address] Care Team Providers Care Cold Strip Feeder Name Role Phone Marc Rodriguez MD Primary Care Provider [phone] Encounter Details Date Type Department Care Team (Late st Contact Info) Description 07/31/2015 External CPT II MOLD MAKING SUPERVISOR - [facility] Social History Tobacco [...] Description 06/26/2025 9:30 AM EST Procedure visit [facility] PULMONARY & CRITICAL CARE MEDICINE [address] [place] [address] 06/26/2025 10:00 AM EST Office Visit [facility] PULMONARY & CRITICAL CARE MEDICINE [address] [place] [address] Kaitlin Joiner, SANFORIZING MACHINE OPERATOR [address] [place] [address] 09/12/2025 10:00 AM EST Office Visit [facility]IOLOGY [address] [facility] [address] [place] [address] Jimmy Duncan MD 3000 [facility] [address] [place] [address] documented as of this encounter Visit Diagnoses [...] documented as of this encounter Care Teams Cold Strip Feeder Relationship Specialty Start Date End Date Marc Rodriguez MD [address] [facility] [address] [place] [address] PCP - General Adolescent Medicine 12/08/16 documented as of this encounter
--- OUTSIDE RECORDS SUMMARY | 2025-04-18 14:57 | XMS_ITS | Encounter Summary ---
Author Organization Healthcare Address [address] [place] [address] Care Team Providers Care Clinical Academic Allergist Name Role Phone Marc Rodriguez MD Primary Care Provider [phone] Edgardo Zuñiga MD Unavailable [phone] Giulia Briggs Unavailable [phone] Edgardo Zuñiga MD Unavailable [phone] Esther Mathew Unavailable [phone] Reason for Visit * Reason Comments Med Refill Encounter Details Date Type Department Care Team (Late st Contact Info) Description 04/17/2025 [facility]ill [place] [facility] [address], 1[address] [place] [address] Esther Mathew PA [address] [place] [address] Social History Tobacco Use Types [...] the past 12 months has th e [email or web address], gas, oil, or water [employer] threatened to shut off services in your home? No 05/13/2024 Comments No Sex and Gender Information Value Date Recorded Sex Assigned at Female 07/31/2021 6:10 AM EST Legal Sex Female 8:40 PM EDT Gender Identity Female 07/31/2021 6:10 AM EST Sexual Orientation Not on file documented as of this encounter Miscellaneous Notes * Telephone Encounter - Betsy Monson 04/18/2025 7:26 AM EDT Refill request does not meet protocol. Sending to clinic for review. Additional info: Appointment compliance - Patient has not followed up in clinic as requested. Please review for scheduling and if refills are appropriate. Clinic visit 09/26/2024 with F/U advised in 6 months. Last refill 03/01/2025 for 30 day supply + 1 refill with note that appt needed. documented in this encounter Plan of Treatment Upcoming Encounters Date Type Department Care Team (Late st Contact Info) Description 09/11/2025 11:50 AM EST Office Visit [facility] & Rehabilitation Clinic at [facility] [address] [place] [address] Suzan Galindo, [address] [place] [address] 03/07/2026 9:20 AM EDT Office Visit [facility] Orthopaedic Surgery & Sports Medicine [address], 1[address] [place] [address] Edgardo Zuñiga MD [address] [place] [address] documented as of this encounter [...] as of this encounter Care Teams Clinical Academic Allergist Relationship Specialty Start Date End Date Marc Rodriguez MD [address] [place] [address] PCP - General 12/14/20 Edgardo Zuñiga MD [address] [place] [address] Surgeon Neurosurgery 03/04/21 Giulia Briggs PA [address] [place] [address] Physician Fish Fryer Neurosurgery 07/03/21 Edgardo Zuñiga MD [address] [place] [address] Surgeon Neurosurgery 09/16/21 Esther Mathew PA [address] [place] [address] Physician Fish Fryer Neurology 11/19/22 documented as of this encounter
--- OUTSIDE RECORDS SUMMARY | 2025-04-18 14:57 | XMS_ITS | Encounter Summary ---
[facility] Address [address] [place] [address] Care Team Providers Care Plywood Layup Line Core Layer Name Role Phone Marc Rodriguez MD Primary Care Provider Encounter Details Date Type Department Care Team (Late st Contact Info) Description 01/11/2015 External CPT II CITY PLANNING TEACHER - [facility] Social History Tobacco [...] 9:30 AM EST Procedure visit [facility] PULMONARY & CRITICAL CARE MEDICINE [address] [place] [address] 06/26/2025 10:00 AM EST Office Visit [facility] PULMONARY & CRITICAL CARE MEDICINE [address] [place] [address] Kaitlin Joiner, RETAIL COVERAGE MERCHANDISER [address] [place] [address] 09/12/2025 10:00 AM EST Office Visit [facility] CARDIOLOGY [address] [facility] [address] [place] [address] Jimmy Duncan MD 3000 [facility] [address] [place] [address] documented as of this encounter Visit Diagnoses [...] documented as of this encounter Care Teams Plywood Layup Line Core Layer Relationship Specialty Start Date End Date Marc Rodriguez MD [address] [facility] [address] [place] [address] PCP - General Adolescent Medicine 12/08/16 documented as of this encounter
--- OUTSIDE RECORDS SUMMARY | 2025-04-18 14:57 | XMS_ITS | Encounter Summary ---
Author Organization [facility] Address [address] [place] [address] Care Team Providers Care Check Viewer Name Role Phone Marc Rodriguez MD Primary Care Provider Encounter Details Date Type Department Care Team (Late st Contact Info) Description 12/12/2015 External CPT II DIVISION CHIEF - [facility] Social History Tobacco Use [...] & CRITICAL CARE MEDICINE [address] [place] [address] 06/26/2025 10:00 AM EST Office Visit [facility] PULMONARY & CRITICAL CARE MEDICINE [address] [place] [address] Kaitlin Joiner APRN [address] [place] [address] 09/12/2025 10:00 AM EST Office Visit [facility] CARDIOLOGY [address] [facility] [address] [place] [address] Jimmy Duncan MD 3000 [facility] [address] [place] [address] documented as of this encounter Visit Diagnoses [...] documented as of this encounter Care Teams Check Viewer Relationship Specialty Start Date End Date Marc Rodriguez MD 12[address] [facility] [address] [place] [address] PCP - General Adolescent Medicine 12/08/16 documented as of this encounter
--- OUTSIDE RECORDS SUMMARY | 2025-04-18 14:57 | XMS_ITS | Encounter Summary ---
Author Organization [facility] Address [address] [place] [address] Care Team Providers Care Stock Speculator Name Role Phone Marc Rodriguez MD Primary Care Provider [phone] Encounter Details Date Type Department Care Team (Late st Contact Info) Description 03/13/2025 Patient rounding ([facility] only) [facility] CARDIOLOGY [address] [facility] [address] [address] Jimmy Duncan MD 3000 [facility] [address] [place] [address] Social History Tobacco Use Types Packs/Day Years [...] is Pat Davis, and I am the Health Plan Advisor for [facility] Cardiology [place]. I would like to thank you for choosing us to be your campus wellness coordinator. If you do not mind, I would [...] with your visit with us at a [facility]? Over the next few days, you will be receiving a Patient Experience Survey. Please consider taking the survey, as it helps [facility] in improving their patient care. Thank you for taking the time to answer our questions today and we look forward to seeing you in the future. I hope you have a good day. documented in this encounter Plan of Treatment Upcoming Encounters Date Type Department Care Team (Late st Contact Info) Description 06/26/2025 9:30 AM EST Procedure visit [facility] PULMONARY & CRITICAL CARE MEDICINE [address] [place] [address] 06/26/2025 10:00 AM EST Office Visit [facility] PULMONARY & CRITICAL CARE MEDICINE [address] [place] [address] Kaitlin Joiner APRN [address] [place] [address] 09/12/2025 10:00 AM EST Office Visit [facility] CARDIOLOGY [address] [facility] [address] [place] [address] Jimmy Duncan MD 3000 [facility] [address] [place] [address] documented as of this encounter Visit Diagnoses Not on filedocumented in this encounter Care Teams Stock Speculator Relationship Specialty Start Date End Date Marc Rodriguez MD 1210 [facility] [address] [facility] [address] [place] [address] PCP - General Adolescent Medicine 12/08/16 documented as of this encounter
--- OUTSIDE RECORDS SUMMARY | 2025-04-18 14:57 | XMS_ITS | Encounter Summary ---
[facility] Address [address] [place] [address] Care Team Providers Care Packing Machine Feeder Name Role Phone Marc Rodriguez MD Primary Care Provider [phone] Encounter Details Date Type Department Care Team (Late st Contact Info) Description 03/06/2025 Telephone [facility] CARDIOLOGY [address] [facility] [address], [place] [address] Jimmy Duncan MD 3000 [facility] [address] [place] [address] Social History Tobacco Use Types Packs/Day Years [...] 03/06/2025 3:21 PM EDT Faxed orders to [phone] * Telephone Encounter - Keke Aguilar RegSched Rep - 03/06/2025 1:22 PM EDT Caller: Sandie Frank Relationship: Self Best call back number: . Telephone Information: What orders are you requesting (i.e. lab or imaging): LAB ORDERS In what timeframe would the patient need to come in: ASHLEY Where will you receive your lab/imaging services: [facility] Additional notes: PT ASKED IF OFFICE WILL PLEASE FAX LAB ORDERS TO [facility]. PT DOESN'T HAVE FAX NUMBER. documented in this encounter Plan of Treatment Upcoming Encounters Date Type Department Care Team (Late st Contact Info) Description 06/26/2025 9:30 AM EST Procedure visit [facility] PULMONARY & CRITICAL CARE MEDICINE [address] [facility] [place] [address] 06/26/2025 10:00 AM EST Office Visit [facility] PULMONARY & CRITICAL CARE MEDICINE [address] [facility] [place] [address] Kaitlin Joiner APRN [address] [place] [address] 09/12/2025 10:00 AM EST Office Visit [facility] CARDIOLOGY [address] [facility] [address] [place] [address] Jimmy Duncan MD 3000 [facility] [address] [place] [address] Scheduled Orders Name Type Priority Associated Diagnoses [...] hypertension documented in this encounter Care Teams Packing Machine Feeder Relationship Specialty Start Date End Date Marc Rodriguez MD 1210 [facility] [address] [place] [address] PCP - General Adolescent Medicine 12/08/16 documented as of this encounter
--- OUTSIDE RECORDS SUMMARY | 2025-04-18 14:57 | XMS_ITS | Clinical Summary ---
Author Organization [facility] Address [address] [facility] [address] [place] [address] Phone Care Team Providers Care Deputy Sheriff Generalist/Bailiff Name Role Phone Rodrigo Avelar MD. Unavailable Conditions or Problems No information available. Medications No information available. Medications Administered No information available. Allergies, Adverse Reactions, Alerts No information available. Results No information available. Plan of Care No information available. Procedures No information available. Vital Signs No information available. Immunizations No information available. Advance Directives No information available.
--- OUTSIDE RECORDS SUMMARY | 2025-04-18 14:57 | XMS_ITS | Encounter Summary ---
[facility] Address [address] [place] [address] Care Team Providers Care Benefits Technician Name Role Phone Marc Rodriguez MD Primary Care Provider [phone] Encounter Details Date Type Department Care Team (Late st Contact Info) Description 11/13/2014 External CPT II EHS ENGINEER - [facility] Social History Tobacco [...] PULMONARY & CRITICAL CARE MEDICINE [address] [place] [address] 06/26/2025 10:00 AM EST Office Visit [facility] PULMONARY & CRITICAL CARE MEDICINE [address] [place] [address] Kaitlin Joiner, WINDOWS MOBILE DEVELOPER [address] [place] [address] 09/12/2025 10:00 AM EST Office Visit [facility]IOLOGY [address] [facility] [address] [place] [address] Jimmy Duncan MD [address] [facility] [address] [place] [address] documented as of this encounter Visit Diagnoses [...] documented as of this encounter Care Teams Benefits Technician Relationship Specialty Start Date End Date Marc Rodriguez MD 1210 [facility] [address] [place] [address] PCP - General Adolescent Medicine 12/08/16 documented as of this encounter
--- OUTSIDE RECORDS SUMMARY | 2025-04-18 14:57 | XMS_ITS | Encounter Summary ---
Author Organization Healthcare Address [address] [place] [address] Care Team Providers Care Distributor Operator Name Role Phone Marc Rodriguez MD Primary Care Provider [phone] Edgardo Zuñiga MD Unavailable [phone] Giulia Briggs Unavailable [phone] Edgardo Zuñiga MD Unavailable [phone] Esther Mathew Unavailable [phone] Encounter Details Date Type Department Care Team (Late st Contact Info) Description 12/16/2023 Orders Only External Location [address] [place] [address] Provider, External Social History Tobacco Use Types [...] & Rehabilitation Clinic at [facility] [address] [place] [address] Suzan Galindo DO [address] [place] [address] 03/07/2026 9:20 AM EDT Office Visit [facility] Orthopaedic Surgery & Sports Medicine [address] 1[address] [place] [address] Edgardo Zuñiga MD [address] [facility] [address] [place] [address] documented as of this encounter [...] documented as of this encounter Care Teams Distributor Operator Relationship Specialty Start Date End Date Marc Rodriguez MD [address] [place] [address] PCP - General 12/14/20 Edgardo Zuñiga MD [address] [place] [address] Surgeon Neurosurgery 03/04/21 Giulia Briggs PA [address] [place] [address] Physician Lead Assembler Neurosurgery 07/03/21 Edgardo Zuñiga MD [address] [place] [address] Surgeon Neurosurgery 09/16/21 Esther Mathew PA [address] [place] [address] Physician Lead Assembler Neurology 11/19/22 documented as of this encounter
--- OUTSIDE RECORDS SUMMARY | 2025-04-18 14:57 | XMS_ITS | Encounter Summary ---
Author Organization [facility] Address [address] [place] [address] Care Team Providers Care Dials Supervisor Name Role Phone Marc Rodriguez MD Primary Care Provider [phone] Encounter Details Date Type Department Care Team [...] CENTER PULMONARY & CRITICAL CARE MEDICINE [address] [facility] [place] [address] 06/26/2025 10:00 AM EST Office Visit [facility] PULMONARY & CRITICAL CARE MEDICINE [address] [facility] [place] [address] Kaitlin Joiner, TORI [address] [place] [address] 09/12/2025 10:00 AM EST Office Visit [facility] CARDIOLOGY [address] [facility] [address] [place] [address] Jimmy Duncan MD 3000 [facility] [address] [place] [address] documented as of this encounter Visit Diagnoses Not on filedocumented in this encounter Care Teams Dials Supervisor Relationship Specialty Start Date End Date Marc Rodriguez MD 1210 [facility] [address] [place] [address] PCP - General Adolescent Medicine 12/08/16 documented as of this encounter
--- OUTSIDE RECORDS SUMMARY | 2025-04-18 14:57 | XMS_ITS | Clinical Summary ---
Author Organization [facility] Address [address] [facility] [address] [place] [address] Care Team Providers Care Remote Coders Name Role Phone Unavailable Primary Care Provider [...] 11/01/2003 Zoster Vaccines (1 of 2) 11/01/2003 Depression Risk Screening 08/03/2024 Fall Risk Screening 08/03/2024 SDOH Screening 08/03/2024 COVID-19 Vaccine ( - 2023-2 5 season) 2025 Influenza Vaccine (#1) 2025 HIB Vaccines Aged [...] Payer (Ef fective 2014-Present) Name:Sandie Frank Member ID:[id number] Relation to Subscriber:Self Name:Sandie Frank Subscriber ID:[id number] Payer ID:[id number] Group ID:Not on file Type:Medicare Address: [address]
--- OUTSIDE RECORDS SUMMARY | 2025-04-18 14:57 | XMS_ITS | Encounter Summary ---
Author Organization [facility] Address [address] [place] [address] Care Team Providers Care Visitor Information Assistant Name Role Phone Marc Rodriguez MD Primary Care Provider [phone] Encounter Details Date Type Department Care Team (Late st Contact Info) Description 06/18/2016 External CPT II RECRUITING ADMINISTRATOR - [facility] Social History Tobacco Use [...] & CRITICAL CARE MEDICINE [address] [place] [address] 06/26/2025 10:00 AM EST Office Visit [facility] PULMONARY & CRITICAL CARE MEDICINE [address] [place] [address] Kaitlin Joiner APRN [address] [place] [address] 09/12/2025 10:00 AM EST Office Visit [facility] CARDIOLOGY [address] [facility] [address] [place] [address] Jimmy Duncan MD [address] [facility] [address] [place] [address] documented as of this encounter Visit Diagnoses [...] documented as of this encounter Care Teams Visitor Information Assistant Relationship Specialty Start Date End Date Marc Rodriguez MD 12[address] [facility] [address] [place] [address] PCP - General Adolescent Medicine 12/08/16 documented as of this encounter
--- OUTSIDE RECORDS SUMMARY | 2025-04-18 14:57 | XMS_ITS | Encounter Summary ---
Author Organization [facility] Address [address] [place] [address] Care Team Providers Care Fish Bait Picker Name Role Phone Marc Rodriguez MD Primary Care Provider [phone] Encounter Details Date Type Department Care Team (Late st Contact Info) Description 11/27/2015 External CPT II INDUSTRIAL PROPERTY APPRAISER - [facility] Social History Tobacco Use [...] Description 06/26/2025 9:30 AM EST Procedure visit [facility] PULMONARY & CRITICAL CARE MEDICINE [address] [place] [address] 06/26/2025 10:00 AM EST Office Visit [facility] PULMONARY & CRITICAL CARE MEDICINE [address] [place] [address] Kaitlin Joiner APRN [address] [place] [address] 09/12/2025 10:00 AM EST Office Visit [facility] CARDIOLOGY [address] [facility] [address] [place] [address] Jimmy Duncan MD [address] [facility] [address] [place] [address] documented as of this encounter Visit Diagnoses [...] documented as of this encounter Care Teams Fish Bait Picker Relationship Specialty Start Date End Date Marc Rodriguez MD [address] [facility] [address] [place] [address] PCP - General Adolescent Medicine 12/08/16 documented as of this encounter
--- OUTSIDE RECORDS SUMMARY | 2025-04-18 14:57 | XMS_ITS | Encounter Summary ---
Author Organization [facility] Address [address] [place] [address] Care Team Providers Care Agriculture Worker Name Role Phone Marc Rodriguez MD Primary Care Provider [phone] Encounter Details Date Type Department Care Team (Late st Contact Info) Description 12/03/2015 External CPT II LONG CHAIN QUILLER TENDER - [facility] Social History Tobacco [...] & CRITICAL CARE MEDICINE [address] [place] [address] 06/26/2025 10:00 AM EST Office Visit [facility] PULMONARY & CRITICAL CARE MEDICINE [address] [place] [address] Kaitlin Joiner APRN [address] [place] [address] 09/12/2025 10:00 AM EST Office Visit [facility] CARDIOLOGY [address] [facility] [address] [place] [address] Jimmy Duncan MD 3000 [facility] [address] [place] [address] documented as of this encounter Visit Diagnoses [...] documented as of this encounter Care Teams Agriculture Worker Relationship Specialty Start Date End Date Marc Rodriguez MD [address] [facility] [address] [place] [address] PCP - General Adolescent Medicine 12/08/16 documented as of this encounter
--- OUTSIDE RECORDS SUMMARY | 2025-04-18 14:57 | XMS_ITS | Encounter Summary ---
[facility] Address [address] [place] [address] Care Team Providers Care Practice Specialist Name Role Phone Marc Rodriguez MD Primary Care Provider [phone] Encounter Details Date Type Department Care Team (Late st Contact Info) Description 10/12/2014 External CPT II METEOROLOGIST LIAISON - [facility] Social History Tobacco Use [...] 06/26/2025 9:30 AM EST Procedure visit [facility] PULMONARY & CRITICAL CARE MEDICINE [address] [place] [address] 06/26/2025 10:00 AM EST Office Visit [facility] PULMONARY & CRITICAL CARE MEDICINE [address] [place] [address] Kaitlin Joiner, REPAIR SERVICE CLERK [address] [place] [address] 09/12/2025 10:00 AM EST Office Visit [facility]IOLOGY [address] [place] [address] Jimmy Duncan MD 3000 [facility] [address] [place] [address] documented as of this encounter Visit Diagnoses [...] documented as of this encounter Care Teams Practice Specialist Relationship Specialty Start Date End Date Marc Rodriguez MD [address] [facility] [address] [place] [address] PCP - General Adolescent Medicine 12/08/16 documented as of this encounter
--- OUTSIDE RECORDS SUMMARY | 2025-04-18 14:57 | XMS_ITS | Encounter Summary ---
[facility] Organization [facility] Address [address] [place] [address] Care Team Providers Care Furnace Unloader Name Role Phone Marc Rodriguez MD Primary Care Provider [phone] Encounter Details Date Type Department Care Team (Late st Contact Info) Description 08/20/2015 External CPT II HOSPITAL CARRIER - [facility] Social History Tobacco Use [...] PULMONARY & CRITICAL CARE MEDICINE [address] [place] [address] 06/26/2025 10:00 AM EST Office Visit [facility] PULMONARY & CRITICAL CARE MEDICINE [address] [place] [address] Kaitlin Joiner, SLITTER SCORER [address] [place] [address] 09/12/2025 10:00 AM EST Office Visit [facility]OLOGY [address] [facility] [address] [place] [address] Jimmy Duncan MD [address] [facility] [address] [place] [address] documented as of this encounter Visit Diagnoses [...] documented as of this encounter Care Teams Furnace Unloader Relationship Specialty Start Date End Date Marc Rodriguez MD [address] [facility] [address] [place] [address] PCP - General Adolescent Medicine 12/08/16 documented as of this encounter
--- OUTSIDE RECORDS SUMMARY | 2025-04-18 14:57 | XMS_ITS | Encounter Summary ---
[facility] Address [address] [place] [address] Care Team Providers Care Esol Teacher Name Role Phone Marc Rodriguez MD Primary Care Provider [phone] Encounter Details Date Type Department Care Team (Late st Contact Info) Description 10/16/2015 External CPT II ROCKET ASSEMBLY OPERATOR - [facility] Social History Tobacco [...] Description 06/26/2025 9:30 AM EST Procedure visit [facility] PULMONARY & CRITICAL CARE MEDICINE [address] [place] [address] 06/26/2025 10:00 AM EST Office Visit [facility] PULMONARY & CRITICAL CARE MEDICINE [address] [place] [address] Kaitlin Joiner, CAP PARTS CUTTER [address] [place] [address] 09/12/2025 10:00 AM EST Office Visit [facility]ARDIOLOGY [address] [place] [address] Jimmy Duncan MD [address] [facility] [address] [place] [address] documented as of this encounter Visit Diagnoses [...] documented as of this encounter Care Teams Esol Teacher Relationship Specialty Start Date End Date Marc Rodriguez MD [address] [facility] [address] [place] [address] PCP - General Adolescent Medicine 12/08/16 documented as of this encounter
--- OUTSIDE RECORDS SUMMARY | 2025-04-18 14:57 | XMS_ITS | Encounter Summary ---
Author Organization [facility] Address [address] [place] [address] Care Team Providers Care Wood Inspector Name Role Phone Marc Rodriguez MD Primary Care Provider [phone] Encounter Details Date Type Department Care Team (Late st Contact Info) Description 02/10/2025 Telephone [facility] CARDIOLOGY [address] [facility] [address], [place] [address] Jimmy Duncan MD [address] [facility] [address] [place] [address] Social History Tobacco Use Types Packs/Day Years [...] HOSPITAL PULMONARY & CRITICAL CARE MEDICINE [address] [place] [address] 06/26/2025 10:00 AM EST Office Visit [facility] PULMONARY & CRITICAL CARE MEDICINE [address] [place] [address] Kaitlin Joiner, INDUSTRIAL THERAPIST [address] [place] [address] 09/12/2025 10:00 AM EST Office Visit [facility] CARDIOLOGY [address] [facility] [address] [place] [address] Jimmy Duncan MD [address] [facility] [address] [place] [address] documented as of this encounter Visit Diagnoses Not on filedocumented in this encounter Care Teams Wood Inspector Relationship Specialty Start Date End Date Marc Rodriguez MD [address] [facility] [address] [facility] [address] [place] [address] PCP - General Adolescent Medicine 12/08/16 documented as of this encounter
--- OUTSIDE RECORDS SUMMARY | 2025-04-18 14:57 | XMS_ITS | Clinical Summary ---
Author Organization [facility] Address [address] [place] [address] Care Team Providers Care Network Support Engineer Name Role Phone Marc Rodriguez MD Primary Care Provider [phone] Allergies Active Allergy Reactions Criticality Noted Date [...] Take 1 tablet by mouth Every Night. 8 Active lamoTRIgine (LaMICtal) 100 MG tablet Take 1 tablet by mouth 2 (Two) Times a Day. 8 Active DULoxetine (CYMBALTA) 60 MG capsule Take 1 capsule by mouth 2 (Two) Times a Day. 8 Active memantine (NAMENDA) 10 MG tablet Take 1 tablet by mouth 2 (Two) Times a Day. 11 9 Active sodium bicarbonate 650 MG tablet Take 1 tablet by mouth 2 (Two) Times a Day. 6 9 Active donepezil (ARICEPT) 23 MG tablet Take 1 tablet by mouth Daily. 0 Active levothyroxine (SYNTHROID, LEVOTHROID) 88 MCG tablet [...] nasal spray Narcan 4 mg/actuation nasal spray 2 Active fluticasone (Flonase) 50 MCG/ACT nasal spray 2 sprays by Each Nare route Daily. 18 mL 11 2 Active nystatin (MYCOSTATIN) 100,000 unit/mL suspension Take 5 mL by mouth 4 (Four) Times a Day. 280 mL 2 Active acetaminophen (TYLENOL) 500 MG tablet Take 2 tablets by mouth Every 6 (Six) Hours As Needed. Active denosumab (PROLIA) 60 MG/ML solution prefilled syringe syringe Inject 1 mL under the skin into the appropriate area as directed. Active montelukast (SINGULAIR) 10 MG tabletIndication s:Chronic allergic rhinitis Take 1 tablet by mouth every night at bedtime. 30 tablet 5 4 Active Fluticasone Furoate-Vilanter ol 100-25 MCG/ACT aerosol powderIndication s:Severe persistent asthma without complication Inhale 1 puff Daily. 60 each 2 4 Active aspirin 81 MG chewable tablet Chew [...] Day. Active Emgality 120 MG/ML auto-injector pen 4 Active ondansetron (ZOFRAN) 4 MG tablet Take 1 tablet by mouth. 4 Active Trulance 3 MG tablet Take 1 tablet by mouth Daily. 5 Active Ubrelvy 100 MG tablet TAKE 1 TABLET BY MOUTH ONE TIME NEEDED FOR MIGRAINE. AFTER 2 HOURS, A SECOND DOSE MAY BE TAKEN IF NEEDED. MAX 200MG IN 24 HOURS 5 Active Dupilumab (Dupixent) 300 MG/2ML solution auto-injector injection Inject 2 mL under the skin into the appropriate area as directed Every 14 (Fourteen) Days. Active rosuvastatin (CRESTOR) 20 MG tablet Take 1 tablet by mouth Daily. 90 tablet 5 Active baclofen (LIORESAL) 10 MG tablet Take 1 tablet by mouth 2 (Two) Times a Day. 5 Active Active Problems Problem Noted Date Diagnosed Date Primary hypertension 03/12/2025 Assessment & Plan (03/13/2025 9:56 AM EDT): Hypertension is stable and controlled. Family MD started Norvasc 5 mg daily. Patient brought BP log and its average 130 systolic. Continue current treatment regimen. Dietary sodium restriction. Weight loss. Ambulatory blood pressure monitoring. Blood pressure will be reassessed in 6 months. Discussed with patient [employer] and [employer] provide detailed guidelines for accurate [...] (08/27/2021): Added automatically from request for surgery [id number] Lumbosacral radiculopathy at L5 04/22/2021 Overview (08/27/2021): Added automatically from request for surgery [id number] Chronic bilateral low back pain with bilateral s ciatica 04/22/2021 Overview (08/27/2021): Added automatically from request for surgery [id number] Spinal stenosis, lumbar clara on without neurogenic claudication 04/22/2021 Overview (08/27/2021): Added automatically from request for surgery [id number] Environmental and seasonal allergies 11/12/2020 Restless legs syndrome 11/12/2020 Adrenal insufficiency 02/22/2019 Overview (02/22/2019): chronic steroids - Cortef Rheumatoid arthritis 08/31/2018 Fibromyalgia 08/31/2018 Chronic cough 12/24/2017 Severe persistent asthma without complication Chronic allergic rhinitis 12/24/2017 Gastroesophageal reflux disease 12/24/2017 Encounters Date Type Department Care Team Description 03/13/2025 9:45 AM EDT Office Visit [facility] CARDIOLOGY [address] [place] [address] [address], [place] [address] Jimmy Duncan MD Primary hypertension (Primary Dx); Hyperlipidemia LDL goal <100; Chronic venous insufficiency of lower extremity 03/13/2025 Patient rounding ([facility] only) [facility] CARDIOLOGY [address] [place] [address] [address] [place] [address] Jimmy Duncan MD 03/13/2025 Travel 03/07/2025 Telephone [facility] CARDIOLOGY [address] [facility] [address] [place] [address] QAZI - LAB ORDERS 03/06/2025 Telephone [facility] CARDIOLOGY [address] [facility] [address] [place] [address] Jimmy Duncan MD 02/10/2025 Telephone [facility] CARDIOLOGY [address] [facility] [address] [place] [address] Jimmy Duncan MD Med Refill 02/10/2025 Telephone [facility] CARDIOLOGY [address] [facility] [address] [place] [address] Jimmy Duncan MD 02/10/2025 Telephone [facility] CARDIOLOGY [address] [facility] [address] [place] [address] QAZI - SCHEDULING REQUEST from Last 3 Months Immunizations Immunization Administration [...] Description 06/26/2025 9:30 AM EST Procedure visit [facility] PULMONARY & CRITICAL CARE MEDICINE [address] [place] [address] 06/26/2025 10:00 AM EST Office Visit [facility] PULMONARY & CRITICAL CARE MEDICINE [address] [place] [address] Kaitlin Joiner, TOLL LINE MECHANIC [address] [place] [address] 09/12/2025 10:00 AM EST Office Visit [facility] CARDIOLOGY [address] [facility] [address], [place] [address] Jimmy Duncan MD [address] [facility] [address] [place] [address] Health Maintenance Due Date Last Done Comments ANNUAL WELLNESS VISIT 12/08/2020 12/09/2019 , 11/26/2018, 12/12/2015 DXA SCAN 02/07/2021 02/07/2019, 04/07/2017 MAMMOGRAM 04/29/2021 04/29/2019, 09/04, 09/26/2015 LIPID PANEL 03/25/2025 03/25/2024, 03/04, 05/10/2019, Additional history exists COVID-19 Vaccine (2024-09 6 season) 2025 07/15/2023, 04/30/2022, 12/19/2021, Additional history exists INFLUENZA VACCINE 05/03/2025 07/13/2024, [...] - LABS Routine 02/20/2025 12:27 PM EDT from Last 3 Months Results * ECG [...] Rodriguez MD Date: 03/13/2025 Department: [facility] CARDIOLOGY [address] [facility] [address] [facility] [address] Chief Complaint Patient presents with Hypertension Hyperlipidemia [...] Procedure Laterality Date APPENDECTOMY 1973 BREAST BIOPSY [id number] multiple CARDIAC CATHETERIZATION 03/13/2009 AE @ [facility]- [...] reassessed in 6 months. Discussed with patient [employer] and [employer] provide detailed guidelines for accurate blood [...] any significant symptoms or go to the [facility] Emergencyroom if possible. Jimmy Duncan MD, FACC,[facility]. [facility] Part of this note may be an electronic catalog library assistant/translation of spokenlanguage to printed text using the brand [employer] Dictation System. Jimmy Duncan MD ECG ORDERABLES Final Result * LABS SCANNED (03/08/2025) Only the most recent of3 resultswithin the time period is included. Jimmy Duncan MD LAB BLOOD ORDERABLES Final Resu lt from [place] [address] [place] [address] MEDICARE A & B [facility] PPO Care Teams Network Support Engineer Relationship Specialty Start Date End Date Marc Rodriguez MD [address] [facility] [address] [place] [address] PCP - General Adolescent Medicine 12/08/16
--- OUTSIDE RECORDS SUMMARY | 2025-04-18 14:57 | XMS_ITS | Encounter Summary ---
[facility] Address [address] [place] [address] Care Team Providers Care Secondary History Teacher Name Role Phone Marc Rodriguez MD Primary Care Provider [phone] Encounter Details Date Type Department Care Team (Late st Contact Info) Description 10/10/2014 External CPT II MANAGER OF CUSTOMER BILLING - [facility] Social History Tobacco Use [...] PULMONARY & CRITICAL CARE MEDICINE [address] [place] [address] 06/26/2025 10:00 AM EST Office Visit [facility] PULMONARY & CRITICAL CARE MEDICINE [address] [place] [address] Kaitlin Joiner, FARM MARKETER [address] [place] [address] 09/12/2025 10:00 AM EST Office Visit [facility] [address] [facility] [address] [place] [address] Jimmy Duncan MD [address] [facility] [address] [place] [address] documented as of this encounter Visit Diagnoses [...] as of this encounter Care Teams Secondary History Teacher Relationship Specialty Start Date End Date Marc Rodriguez MD [address] [facility] [address] [place] [address] PCP - General Adolescent Medicine 12/08/16 documented as of this encounter
--- OUTSIDE RECORDS SUMMARY | 2025-04-18 14:57 | XMS_ITS ---
Author Organization [facility] Address [address] [place] [address] Care Team Providers Care Dial Mounter Name Role Phone Marc Rodriguez MD Primary Care Provider [phone] Asthma - External Fill Status:Enrolled (Active) Start date:05/10/2024 Enrollment date:05/10/2024 Enrollment reason:Identified as being on target medication Current support & services provided:Refill Coordination , Benefits Investigation, Prior Authorization, External Pharmacy Dispensing Linked medications:Dupilumab () Linked problems:Severe persistent asthma without complication (Active) Continued Care and Services Coordination
--- OUTSIDE RECORDS SUMMARY | 2025-04-18 14:57 | XMS_ITS | Clinical Summary ---
Author Organization [facility] Address [address] [place] [address] Care Team Providers Care Fuel Truck Driver Name Role Phone Marc Rodriguez MD Primary Care Provider [phone] Edgardo Zuñiga MD Unavailable [phone] Giulia Briggs Unavailable [phone] Edgardo Zuñiga MD Unavailable [phone] Esther Mathew Unavailable [phone] Allergies Active Allergy Reactions Criticality Noted Date [...] in other nostril if symptoms continue 05/27/20 Active galcanezumab-gn lm (Emgality) 120 MG/ML injection Inject 1 Syringe (120 mg) under the skin every 30 (thirty) days. 1 each 07/19/20 24 025 Active amLODIPine (Norvasc) 5 MG tablet Take 1 tablet (5 mg) by mouth daily. 08/17/19 25 Active ondansetron (Zofran) 4 MG tablet Take 1 tablet (4 mg) by mouth every 8 hours as needed for nausea. 07/13/20 Active lamoTRIgine (LaMICtal) 100 MG tablet Take 1 tablet (100 mg) by mouth 2 (two) times a day. 180 tablet 3 09/26/19 25 026 Active memantine (Namenda) 10 MG tablet Take 1 tablet (10 mg) by mouth 2 (two) times a day. 180 tablet 09/26/19 25 026 Active Linzess 72 MCG [...] MAX 200MG IN 24 HOURS 10 each 12/10/19 25 Active baclofen (Lioresal) 10 MG tablet Take 1 tablet by mouth 2 times a day. 60 tablet 5 03/09/20 25 Active busPIRone (Buspar) 5 MG tabletIndicatio ns:Total self-care deficit,Impaire d cognition Take 1 tablet by mouth 3 times a day. 90 tablet 3 03/09/20 25 Active dantrolene (Dantrium) 50 MG capsuleIndicati ons:Cervical cord compression with myelopathy (CMS/HCC) Take 2 capsules by mouth 4 times a day. 240 capsule 5 03/09/20 25 Active albuterol 108 (90 Base) MCG/ACT inhaler INHALE 2 PUFFS BY MOUTH EVERY 4 HOURS NEEDED FOR WHEEZING FOR SHORTNESS OF BREATH 03/03/20 25 Active dantrolene (Dantrium) 50 MG capsule Take 1 capsule by mouth 4 times a day. 90 capsule 5 03/10/20 25 Active donepezil (Aricept) 23 MG tablet Take 1 tablet by mouth once daily 30 tablet 04/18/20 25 Active donepezil (Aricept) 23 MG tablet Take 1 tablet by mouth once daily 30 tablet 1 03/01/20 25 025 Discontinued Active Problems Problem Noted [...] (07/02/2021): Added automatically from request for surgery [id number] Chronic bilateral low back pain with bilateral s ciatica 04/22/2021 Overview (04/22/2021): Added automatically from request for surgery [id number] Environmental and seasonal allergies 11/12/2020 Restless legs [...] (04/22/2021): Added automatically from request for surgery [id number] Spinal stenosis, lumbar clara on without neurogenic claudication 04/22/2021 10/18/2021 Overview (04/22/2021): Added automatically from request for surgery [id number] Spondylolisthesis at L4-L5 level 04/22/2021 10/18/2021 Overview (04/22/2021): Added automatically from request for surgery [id number] AVN (avascular necrosis of bone) 08/30/2018 07/30/2021 Rotator cuff arthropathy 08/30/2018 Decreased range of motion of shoulder 07/22/2018 07/30/2021 Humeral fracture 04/01/2018 07/30/2021 Biceps tendonitis 04/01/2018 07/30/2021 Rotator cuff dysfunction 04/01/2018 Purpura 06/19/2017 07/30/2021 Itching 06/02/2017 07/30/2021 Status migrainosus 08/08/2015 Encounters Date Type Department Care Team Description 04/17/2025 Refill [facility] [address] [place] [address] Esther Mathew, PA 04/07/2025 Telephone [facility] [address] [place] [address] Suzan Galindo DO HCN Clinical Concern/Question 03/10/2025 Orders Only [facility] [address] [place] [address] Tony Galindoa, DO 03/10/2025 Refill [facility] [address] [place] [address] Suzan Galindo, DO 03/10/2025 Results Follow-Up [facility] [address] [place] [address] Suzan Galindo, DO 03/09/2025 1:20 PM EDT Office Visit [facility] [address] [place] [address] Suzan Galindo, DO High risk medication use (Primary Dx); Total self-care deficit; Impaired cognition; Cervical cord compression with myelopathy (CMS/HCC) 03/09/2025 Travel 03/08/2025 2:06 PM EDT - 03/08/2025 11:59 PM EDT Hospital Encounter [facility] Radiology [address] [place] [address] S/P lumbar fusion Discharge Disposition: Home or Self Care 03/08/2025 1:40 PM EDT Office Visit [facility] Orthopaedic Surgery & Sports Medicine [address] [place] [address] Edgardo Zuñiga MD S/P lumbar fusion (Primary Dx) 03/08/2025 Travel 03/07/2025 Orders Only [facility] [address] [place] [address] Edgardo Zuñiga MD S/P lumbar fusion (Primary Dx) 02/28/2025 Refill [facility] [address] [place] [address] Esther Mathew PA from Last 3 Months Immunizations Immunization [...] place to sleep or slept in a penitentiary (including now)? No 05/13/2024 PHQ-9 Answer Date Recorded Patient Health Questionnaire-9 Score 0 07/05/2024 Utilities Answer Date Recorded In the past 12 months has th e [employer], gas, oil, or water company threatened to [...] [facility] [address] [place] [address] Suzan Galindo DO [address] [place] [address] 03/07/2026 9:20 AM EDT Office [facility] Medicine [address] [place] [address] Edgardo Zuñiga MD [address] [place] [address] Health Maintenance Due Date Last Done Comments [facility]-Bone Density Scan 1955 [facility]-Medicare Annual Wellness (AWV) 1955 [facility]-/Child/Adol SDOH Screenings 1953 CT Colonography 1998 Colonoscopy 1998 FIT-DNA 1998 FIT 1998 FOBT 1998 Sigmoidoscopy 1998 [facility]-Colorectal Cancer Screening 1998 [facility]-Breast Cancer Screening 11/01/2003 [facility]- SDOH Screenings 11/11/2024 [facility]-Adult SDOH Screenings 11/11/2024 05/13/2024 [id number] Vaccine ( season) 2025 07/15/2023, 04/30/2022, 12/19/2021, Additional history exists [facility]-Influenza Vaccine (#1) 04/03/202507/13, 05/01/2023, 06/07/2022, Additional [...] this topic Medical Devices Implanted Type Area Metal Stamper Device Identifier Shelf Expiration Date Model / Serial / Lot Cif Ui H 8mm 8deg S - [id number] Implanted:Qty : 1 on 07/31/2021 by Edgardo Zuñiga MD at [facility] Cage N/A: Spine Cervical De[employer]ine [employer] LP-[id number] 01/31/2024 [id number] / / [id number] Synchromed Iii Implanted:Qty : 1 on 10/09/2023 Pain Pump Abdomen Medtronic 8667-20 / [id number] / One Level Plate, 12mm - S. - [id number] Implanted:Qty : 1 on 07/31/2021 by Edgardo Zuñiga MD at [facility] Plate N/A: Spine Cervical [employer] LP-[id number] 07/31/2021 [id number] / . / Pre-Lordosed Joe W/ Line 40mm - [id number] Implanted:Qty : 2 on 10/16/2021 by Edgardo Zuñiga MD at [facility] Joe Spine Lumbar [employer] LP-[id number] 10/16/2022 [id number] / / Self Drilling Screw 16mm - S. - [id number] Implanted:Qty : 4 on 07/31/2021 by Edgardo Zuñiga MD at [facility] Screw N/A: Spine Cervical [employer] LP-[id number] 07/31/2022 [id number] / . / Screw 5.5mm Viper Ti Fen Crtcl Polyax 8mm X 50mm - [id number] Implanted:Qty : 4 on 10/16/2021 by Edgardo Zuñiga MD at [facility] Screw Spine Lumbar [employer] LP-[id number] 10/16/2022 [id number] / / Spinal Cord Stimulator Spinal Cord Stimulator [facility] Indigo Identityware [id number] / [id number] / Description:LEADS (2): MODEL # 2218-50 Graft Vivigen 1cc - [id number] Implanted:Qty : 1 on 07/31/2021 by Edgardo Zuñiga MD at [facility]-[id number] 07/15/2022 BL-1500-001 / / [id number] Graft Vivigen 5cc - [id number] Implanted:Qty : 1 on 10/16/2021 by Edgardo Zuñiga MD at [facility] Spine Lumbar [facility]-[id number] 10/11/2022 BL-1500-002 / / [id number] Post Ibf Ui H 12mm 8deg 24/04 - [id number] Implanted:Qty : 1 on 10/16/2021 by Edgardo Zuñiga MD at [facility] Spine Lumbar [employer] LP-[id number] 02/01/2022 [id number] / / Post Ibf Ui H 12mm 8deg 24/04 - [id number] Implanted:Qty : 1 on 10/16/2021 by Edgardo Zuñiga MD at [facility] Spine Lumbar [employer] [id number] 05/02/2025 / / Single Inner Setscrew - [id number] Implanted:Qty : 4 on 10/16/2021 by Edgardo Zuñiga MD at [facility] Spine Lumbar [employer] LP-697073 10/16/2022 [id number] / / Graft Vivigen 15cc - [id number] - [id number] Implanted:Qty : 1 on 03/18/2024 by Edgardo Zuñiga MD at [facility] N/A: Spine Lumbar [facility]-[id number] 02/02/2025 BL-1500-004 -4PK / [id number] / [id number] Screw 5.5mm Viper Ti Fen Crtcl Polyax 7mm X 50mm - [id number] Implanted:Qty : 3 on 03/18/2024 by Edgardo Zuñiga MD at [facility] N/A: Spine Lumbar DePuy Spine [employer]x-[id number] / / Single Inner Setscrew - [id number] Implanted:Qty : 6 on 03/18/2024 by Edgardo Zuñiga MD at [facility] N/A: Spine Lumbar DePuy Spine [employer]x-478983 [id number] / / Pre-Lordosed Joe W/ Line 65mm - [id number] Implanted:Qty : 2 on 03/18/2024 by Edgardo Zuñiga MD at [facility] N/A: Spine Lumbar DePuy Spine [employer]-[id number] / / Procedures Procedure Name Priority Date/Time [...] - 99 mg/dL 03/09/2025 5:10 PM EDT [facility] BUN, Plasma 14 8 - 23 mg/dL 03/09/2025 5:10 PM EDT [facility] Creatinine, Plasma 0.73 0.60 - 1.10 mg/dL 03/09/2025 5:10 PM EDT [facility] BUN/Creatinine Ratio 19 03/09/2025 5:10 PM EDT [facility] Sodium, Plasma 144 136 - 145 mmol/L 03/09/2025 5:10 PM EDT [facility] Potassium, Plasma 5.1(H) 3.6 - 4.9 mmol/L 03/09/2025 5:10 PM EDT [facility] Chloride, Plasma 106 97 - 107 mmol/L 03/09/2025 5:10 PM EDT [facility] CO2, Plasma 28 22 - 29 mmol/L 03/09/2025 5:10 PM EDT [facility] Anion Gap 10 6 - 16 mmol/L 03/09/2025 5:10 PM EDT [facility] Total Calcium, Plasma 9.8 8.9 - 10.2 mg/dL 03/09/2025 5:10 PM EDT [facility] Total Protein 6.6 6.3 - 7.9 g/dL 03/09/2025 5:10 PM EDT [facility] Albumin, Plasma 3.8 3.5 - 5.2 g/dL 03/09/2025 5:10 PM EDT [facility] AST, Plasma 77(H) 10 - 35 U/L 03/09/2025 5:10 PM EDT [facility] ALT, Plasma 38(H) 10 - 35 U/L 03/09/2025 5:10 PM EDT [facility] Alkaline Phosphatase, Plasma 140 46 - 142 U/L 03/09/2025 5:10 PM EDT [facility] Total Bilirubin, Plasma 0.7 0.2 - 1.1 mg/dL 03/09/2025 5:10 PM EDT [facility] eGFRcr 88.0 mL/min/1.7 3m*2 03/09/2025 5:10 PM EDT [facility] Comment:Reported eGFRcr in m L/min/1.73m2 is based the CKD-EPI 2020 equation that does not use a race coefficient. Blood Venous blood specimen / Unknown Venipuncture / Unknown 03/09/2025 2:40 PM EDT 03/09/2025 2:40 PM EDT us Suzan Sanchez DO LAB BLOOD ORDERABLES Final Result [facility] [address] [place] [address] * XR Lumbar Spine 4+ Views w [...] Per this written report. Drafted by Subhash Weslh MD on 03/08/2025 2:46 PM Final report signed by Subhash Welsh MD on 03/08/2025 2:48 PM us Edgardo Zuñiga MD IMG XR PROCEDURES Final Result * Hepatitis C Antibody - ED (04/25/2024 10:55 PM EDT) Hepatitis C Antibody Negative Negative 04/25/2024 11:46 PM EDT [facility] Blood Venous blood specimen / Unknown Venipuncture / Unknown 04/25/2024 10:55 PM EDT 04/25/2024 11:05 PM EDT us Yelena Mcqueen MD LAB BLOOD ORDERABLES Final Res ult [facility] [address] [place] [address] from Last 3 Months or Most Recently Relevant to Health [place] [address] MEDICARE [facility] Advance Directives * Full Code (Latest Code [...] Patient has decision-making capacity? Yes Care Teams Fuel Truck Driver Relationship Specialty Start Date End Date Marc Rodriguez MD [address] [place] [address] PCP - General 12/14/20 Edgardo Zuñiga MD [address] [place] [address] Surgeon Neurosurgery 03/04/21 Giulia Briggs PA [address] [place] [address] Physician Health Tech Neurosurgery 07/03/21 Edgardo Zuñiga MD [address] [place] [address] Surgeon Neurosurgery 09/16/21 Esther Mathew PA [address] [place] [address] Physician Health Tech Neurology 11/19/22
--- OUTSIDE RECORDS SUMMARY | 2025-04-18 14:57 | XMS_ITS | Encounter Summary ---
Author Organization [facility] Address [address] [place] [address] Care Team Providers Care Commercial Lease Administrator Name Role Phone Marc Rodriguez MD Primary Care Provider [phone] Encounter Details Date Type Department Care Team (Late st Contact Info) Description 02/08/2016 External CPT II ONCOLOGY RESEARCH RN - [facility] Social History Tobacco Use [...] & CRITICAL CARE MEDICINE [address] [place] [address] 06/26/2025 10:00 AM EST Office Visit [facility] PULMONARY & CRITICAL CARE MEDICINE [address] [place] [address] Kaitlin Joiner APRN [address] [place] [address] 09/12/2025 10:00 AM EST Office Visit [facility] CARDIOLOGY [address] [facility] [address] [place] [address] Jimmy Duncan MD [address] [facility] [address] [place] [address] documented as of this encounter Visit Diagnoses [...] as of this encounter Care Teams Commercial Lease Administrator Relationship Specialty Start Date End Date Marc Rodriguez MD [address] [facility] [address] [place] [address] PCP - General Adolescent Medicine 12/08/16 documented as of this encounter
--- OUTSIDE RECORDS SUMMARY | 2025-04-18 14:57 | XMS_ITS | Encounter Summary ---
Author Organization [facility] Address [address] [place] [address] Care Team Providers Care Transportation Museum Helper Name Role Phone Marc Rodriguez MD Primary Care Provider [phone] Encounter Details Date Type Department Care Team (Late st Contact Info) Description 09/19/2015 External CPT II UNIFORM ROOM ATTENDANT - [facility] Social History Tobacco Use [...] Description 06/26/2025 9:30 AM EST Procedure visit [facility] PULMONARY & CRITICAL CARE MEDICINE [address] [place] [address] 06/26/2025 10:00 AM EST Office Visit [facility] PULMONARY & CRITICAL CARE MEDICINE [address] [place] [address] Kaitlin Joiner, BLACK OFF WORKER [address] [place] [address] 09/12/2025 10:00 AM EST Office Visit [facility]IOLOGY [address] [facility] [address] [place] [address] Jimmy Duncan MD [address] [facility] [address] [place] [address] documented as of this encounter Visit Diagnoses [...] documented as of this encounter Care Teams Transportation Museum Helper Relationship Specialty Start Date End Date Marc Rodriguez MD [address] [facility] [address] [place] [address] PCP - General Adolescent Medicine 12/08/16 documented as of this encounter
== END 2025-04-18 23:59 | disposition home or self-care (01) ==
LOC: RAD 14:54
PROVIDERS: PCP Nurse Practitioner Family; Visit Provider Nurse Practitioner Family
DX: Z12.31 Encounter for screening mammogram for malignant neoplasm of breast (principal); R92.323 Mammographic fibroglandular density, bilateral breasts
CPT/HCPCS: 77063; 77067

== ENCOUNTER 2025-04-21 13:58 | Outpatient (CLI) | payer MEDICARE, BC, SELFPAY ==
--- OUTSIDE RECORDS SUMMARY | 2017-12-24 10:37 | XMS_ITS | Encounter Summary ---
Author Organization [facility] Address [address] [place] [address] Care Team Providers Care Hotel Valet Attendant Name Role Phone Marc Rodriguez MD Primary Care Provider [phone] Encounter Details Date Type Department Care Team (Late st Contact Info) Description 12/24/2017 10:37 AM EDT Hospital Encounter [facility] PULMONARY & CRITICAL CARE MEDICINE [address] [facility] [place] [address] Social History Tobacco Use Types Packs/Day Years [...] Description 06/26/2025 9:30 AM EST Procedure visit [facility] PULMONARY & CRITICAL CARE MEDICINE [address] [place] [address] 06/26/2025 10:00 AM EST Office Visit [facility] PULMONARY & CRITICAL CARE MEDICINE [address] [place] [address] Kaitlin Joiner, SPEECH SCIENTIST [address] [place] [address] 09/12/2025 10:00 AM EST Office Visit [facility] CARDIOLOGY [address] [facility] [address] [place] [address] Jimmy Duncan MD [address] [facility] [address] [place] [address] documented as of this encounter Procedures Procedure [...] documented as of this encounter Care Teams Hotel Valet Attendant Relationship Specialty Start Date End Date Marc Rodriguez MD [address] [facility] [address] [place] [address] PCP - General Adolescent Medicine 12/08/16 documented as of this encounter
--- OUTSIDE RECORDS SUMMARY | 2018-08-16 11:42 | XMS_ITS | Encounter Summary ---
Author Organization [facility] Address [address] [place] [address] Care Team Providers Care Archival Studies Professor Name Role Phone Marc Rodriguez MD Primary Care Provider [phone] Encounter Details Date Type Department Care Team (Late st Contact Info) Description 08/16/2018 10:42 AM EST Hospital Encounter [facility] PULMONARY & CRITICAL CARE MEDICINE [address] [place] [address] Social History Tobacco Use Types Packs/Day Years [...] Description 06/26/2025 9:30 AM EST Procedure visit [facility] PULMONARY & CRITICAL CARE MEDICINE [address] [facility] [address] 06/26/2025 10:00 AM EST Office Visit [facility] PULMONARY & CRITICAL CARE MEDICINE [address] [facility] [address] Kaitlin Joiner, GENERAL SERVICE OFFICER [address] [place] [address] 09/12/2025 10:00 AM EST Office Visit [facility] CARDIOLOGY [address] [facility] [address] [place] [id number] Jimmy Duncan MD [address] [facility] [address] [place] [address] documented as of this encounter Procedures Procedure [...] documented as of this encounter Care Teams Archival Studies Professor Relationship Specialty Start Date End Date Marc Rodriguez MD [address] [place] [id number] PCP - General Adolescent Medicine 12/08/16 documented as of this encounter
--- OUTSIDE RECORDS SUMMARY | 2020-11-12 08:42 | XMS_ITS | Encounter Summary ---
Author Organization [facility] Address [address] [place] [address] Care Team Providers Care Kai Whakaruruhau Name Role Phone Marc Rodriguez MD Primary Care Provider [phone] Encounter Details Date Type Department Care Team (Late st Contact Info) Description 11/12/2020 8:42 AM EDT Hospital Encounter [facility] PULMONARY & CRITICAL CARE MEDICINE [address] [facility] [place] [phone] Social History Tobacco Use Types Packs/Day Years [...] Description 06/26/2025 9:30 AM EST Procedure visit [facility] PULMONARY & CRITICAL CARE MEDICINE [address] [place] [address] 06/26/2025 10:00 AM EST Office Visit [facility] PULMONARY & CRITICAL CARE MEDICINE [address] [place] [address] Kaitlin Joiner, MERCHANDISE PRESENTATION ASSOCIATE [address] [place] [address] 09/12/2025 10:00 AM EST Office Visit [facility] CARDIOLOGY [address] [facility] [address] [place] [address] Jimmy Duncan MD [address] [facility] [address] [place] [address] documented as of this encounter Procedures Procedure [...] documented as of this encounter Care Teams Kai Whakaruruhau Relationship Specialty Start Date End Date Marc Rodriguez MD [facility] [address] [phone] PCP - General Adolescent Medicine 12/08/16 documented as of this encounter
--- OUTSIDE RECORDS SUMMARY | 2022-07-11 14:36 | XMS_ITS | Encounter Summary ---
Author Organization [facility] Address [address] [place] [address] Care Team Providers Care Gasket Inspector Name Role Phone Marc Rodriguez MD Primary Care Provider [phone] Encounter Details Date Type Department Care Team (Late Contact Info) Description 07/11/2022 1:36 PM EST Hospital Encounter [facility] PULMONARY & CRITICAL CARE MEDICINE [address] [place] [address] Social History Tobacco Use Types Packs/Day Years [...] 9:30 AM EST Procedure visit [facility] PULMONARY & CRITICAL CARE MEDICINE [address] [place] [address] 06/26/2025 10:00 AM EST Office Visit [facility] PULMONARY & CRITICAL CARE MEDICINE [address] [place] [address] Kaitlin Joiner, COATING AND EMBOSSING UNIT OPERATOR [address] [place] [address] 09/12/2025 10:00 AM EST Office Visit [facility] CARDIOLOGY [address] [facility] [address] [place] [address] Jimmy Duncan MD [address] [facility] [address] [place] [address] documented as of this encounter Procedures Procedure [...] by Edgardo Cash MD. Kaitlin L Rhys COATING AND EMBOSSING UNIT OPERATOR IMG DIAGNOSTIC IMAGING ORDER JORDANA Final Result documented in this encounter Visit Diagnoses Not on filedocumented in this encounter Care Teams Gasket Inspector Relationship Specialty Start Date End Date Marc Rodriguez MD [facility] [address] [place] [address] PCP - General Adolescent Medicine 12/08/16 documented as of this encounter
--- OUTSIDE RECORDS SUMMARY | 2022-08-27 09:46 | XMS_ITS | Encounter Summary ---
Author Organization [facility] Address [address] [place] [address] Care Team Providers Care Deli Cook Name Role Phone Marc Rodriguez MD Primary Care Provider [phone] Encounter Details Date Type Department Care Team (Late Contact Info) Description 08/27/2022 8:46 AM EST Hospital Encounter [facility] PULMONARY & [facility]ITICAL CARE MEDICINE [address] [facility] [place] [address] Social History Tobacco Use Types Packs/Day Years [...] 9:30 AM EST Procedure visit [facility] PULMONARY & CRITICAL CARE MEDICINE [address] [place] [address] 06/26/2025 10:00 AM EST Office Visit [facility] PULMONARY & CRITICAL CARE MEDICINE [address] [place] [address] Kaitlin Joiner, LITIGATION ASSISTANT [address] [place] [address] 09/12/2025 10:00 AM EST Office Visit [facility] CARDIOLOGY [address] [facility] [address] [place] [address] Jimmy Duncan MD [address] [facility] [address] [place] [address] documented as of this encounter Procedures Procedure [...] Coleman 08/27/2022 1:30 PM EST Workstation ID: [id number] Narrative 08/27/2022 1:30 PM EST XR CHEST [...] Laogan 08/27/2022 1:30 PM EST Workstation ID: [id number] Kaitlin Joiner APRN IMG DIAGNOSTIC IMAGING ORDER JORDANA Final Result documented in this encounter Visit Diagnoses Not on filedocumented in this encounter Care Teams Deli Cook Relationship Specialty Start Date End Date Marc Rodriguez MD [facility] [address] [facility] [place] [address] PCP - General Adolescent Medicine 12/08/16 documented as of this encounter
--- OUTSIDE RECORDS SUMMARY | 2024-12-30 09:04 | XMS_ITS | Encounter Summary ---
Author Organization [facility] Address [address] [place] [address] Care Team Providers Care Athlete Marketing Agent Name Role Phone Marc Rodriguez MD Primary Care Provider [phone] Encounter Details Date Type Department Care Team (Late st Contact Info) Description 12/30/2024 9:04 AM EDT Hospital Encounter [facility] PULMONARY & CRITICAL CARE MEDICINE [address] [facility] [place] [phone] Social History Tobacco Use Types Packs/Day Years [...] Description 06/26/2025 9:30 AM EST Procedure visit [facility] PULMONARY & CRITICAL CARE MEDICINE [address] [place] [address] 06/26/2025 10:00 AM EST Office Visit [facility] PULMONARY & CRITICAL CARE MEDICINE [address] [place] [address] Kaitlin Joiner, FOREIGN FOOD COOK SPECIALTY [address] [place] [address] 09/12/2025 10:00 AM EST Office Visit [facility] CARDIOLOGY [address] [facility] [address] [place] [phone] Jimmy Duncan MD 3000 [facility] [address] [place] [address] documented as of this encounter Procedures Procedure [...] MD 12/30/2024 9:27 AM EDT Workstation ID: [id number] Narrative 12/30/2024 9:27 AM EDT XR CHEST [...] MD 12/30/2024 9:27 AM EDT Workstation ID: [id number] Kaitlin Joiner APRN IMG DIAGNOSTIC IMAGING ORDER JORDANA Final Result documented in this encounter Visit Diagnoses Not on filedocumented in this encounter Care Teams Athlete Marketing Agent Relationship Specialty Start Date End Date Marc Rodriguez MD 1210 [facility] [address] [facility] [place] [address] PCP - General Adolescent Medicine 12/08/16 documented as of this encounter
--- OUTSIDE RECORDS SUMMARY | 2025-03-08 13:40 | XMS_ITS | Encounter Summary ---
Author Organization [facility] Address [address] [place] [address] Care Team Providers Care Vending Machine Servicer Name Role Phone Marc Rodriguez MD Primary Care Provider [phone] Edgardo Zuñiga MD Unavailable [phone] Giulia Briggs Unavailable [phone] Edgardo Zuñiga MD Unavailable [phone] Esther Mathew Unavailable [phone] Encounter Details Date Type Department Care Team (Late st Contact Info) Description 03/08/2025 1:40 PM EDT Office Visit [facility] Surgery [facility] Medicine [address] [place] [address] Edgardo Zuñiga MD [address] [place] [address] S/P lumbar fusion (Primary Dx) [...] Date Recorded Patient Health Questionnaire-2 Score 0 03/09/2025 Hunger Vital Sign Answer Date Recorded Within [...] place to sleep or slept in a residential (including now)? No 05/13/2024 PHQ-9 Answer Date [...] Sign Reading Time Taken Comments Blood Pressure 146/74 03/08/2025 2:00 PM EDT Pulse 55 03/08/2025 2:00 PM EDT Temperature 36.8 C (98.3 F) 03/08/2025 2:00 PM EDT Respiratory Rate - - Oxygen Saturation 100% 03/08/2025 2:00 PM EDT Inhaled Oxygen Concentration - - Weight 86.2 kg (190 lb) 03/08/2025 2:00 PM EDT Height 170.2 cm (5' 7 ) 03/08/2025 2:00 PM EDT Body Mass Index 29.76 03/08/2025 2:00 PM EDT documented in this encounter Miscellaneous Notes * Progress Notes - Edgardo Zuñiga MD - 03/08/2025 1:40 PM EDT HPI: Sandie Frank is a 69 y.o. female who is now 1 year status post L3-5 decompression and fusion. 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 This is significantly improved since that time. She still uses a wheelchair for most mobilization but is able to be upright for short periods of time and has improved strength and mobility of all of her extremities. She notes that with some recent weight loss and feels that her pain pump has shifted in position and is causing more discomfort. She is seeing Dr. Kidd later this month and will talk to him about this. She is no longer requiring a hospital bed at home. Review of systems. 14 Point ROS performed. Noncontributory except as indicated above-form completedby patient, reviewed and placed in chart. ? Physical Exam: Awake alert and well-appearing Strength 5/5 Incision well healed No tenderness to palpation over the lumbar spine, SI joints, or hips Pump appears more midline than previous visits. ? Imaging: Lumbar flexion-extension x-rays demonstrate stable appearance of hardware without instability Assessment: Sandie Frank is 1 year status post L3-5 decompression and fusion. She is recovering well from hersudden onset episode of spastic paresis. She still has difficulty with balance and ambulation but she has improved strength and most of this spasticity has resolved. She is concerned about discomfortrelated to her pain pump which she will discuss with Dr. Bernabe Ordaz. I will have her follow- up in1 year. ? I personally spent a total of 30 minutes on this encounter. This time includes face to face with patient, counseling and discussion and/or coordination of care. I spent >50% in ztij-fl-zvil communication with the patient over the diagnosis, treatment options and plan. Edgardo Zuñiga MD MS Test Lead of Neurosurgery Complex and Minimally Invasive Spine Surgery [facility] [address] [place], [address] documented in this encounter Plan of Treatment Upcoming Encounters Date Type Department Care Team (Late st Contact Info) Description 09/11/2025 11:50 AM EST Office Visit [facility] Medicine [facility] at [facility] [address] [place] [address] Suzan Galindo, [address] [place] [address] 03/07/2026 9:20 AM EDT Office Visit [facility] Orthopaedic Surgery & Sports Medicine [address] [place] [address] Edgardo Zuñiga MD [address] [place] [address] documented as of this encounter Visit Diagnoses Diagnosis S/P lumbar fusion- Primary Arthrodesis status documented in this encounter Additional Health Concerns Assessment Noted Time PHQ-9 Depression Total Score: 0 07/05/20 24 10:01 AM EST A fall risk assessment has been complete d for the patient 03/08/2025 2:00 PM EDT A Body Mass Index follow-up plan has been documented for the patient 03/08/2025 4:13 PM EDT documented as of this encounter Care Teams Vending Machine Servicer Relationship Specialty Start Date End Date Marc Rodriguez MD [address] [place] [address] PCP - General 12/14/20 Edgardo Zuñiga MD [address] [place] [address] Surgeon Neurosurgery 03/04/21 Giulia Briggs PA [address] [place] [address] Physician Transfill Technician Neurosurgery 07/03/21 Edgardo Zuñiga MD [address] [place] [address] Surgeon Neurosurgery 09/16/21 Esther Mathew PA [address] [place] [address] Physician Transfill Technician Neurology 11/19/22 documented as of this encounter
--- OUTSIDE RECORDS SUMMARY | 2025-03-08 14:06 | XMS_ITS | Encounter Summary ---
Author Organization Healthcare Address [address] [place] [address] Care Team Providers Care Drugless Doctor Name Role Phone Marc Rodriguez MD Primary Care Provider [phone] Edgardo Zuñiga MD Unavailable [phone] Giulia Briggs Unavailable [phone] Edgardo Zuñiga MD Unavailable [phone] Esther Mathew Unavailable [phone] Encounter Details Date Type Department Care Team (Latest Contact Info) Description 03/08/2025 2:06 PM EDT - 03/08/2025 11:59 PM EDT Hospital Encounter [place] [facility] [address], [address] [place] [phone] S/P lumbar fusion Discharge Disposition: Home or [...] place to sleep or slept in a usp (including now)? No 05/13/2024 PHQ-9 Answer Date Recorded Patient Health Questionnaire-9 Score 0 07/05/2024 Utilities Answer Date Recorded In the past 12 months has th e [employer], gas, oil, or water [employer] threatened to shut off services in your [...] 03/09/2025 1:23 PM EDT Gulshan Delacruz * How difficult have these problems made it for you to do your work, take care of things at home, or get along with other people? Answer Date of Assessment Author Not difficult at all 03/09/2025 1:24 PM [...] [facility] [address] [place] [address] Suzan Galindo, [address] [place] [address] 03/07/2026 9:20 AM EDT Office Visit [facility] Orthopaedic Surgery & Sports Medicine [address], [address] [place] [address] Edgardo Zuñiga MD [address] [place] [address] documented as of this encounter [...] Subhash Welsh MD on 03/08/2025 2:48 PM us Edgardo Zuñiga MD IMG XR PROCEDURES Final [...] documented as of this encounter Care Teams Drugless Doctor Relationship Specialty Start Date End Date Marc Rodriguez MD [address] [place] [address] PCP - General 12/14/20 Edgardo Zuñiga MD [address] [place] [address] Surgeon Neurosurgery 03/04/21 Giulia Briggs PA [address] [place] [address] Physician Branch Service Leader Neurosurgery 07/03/21 Edgardo Zuñiga MD [address] [place] [address] Surgeon Neurosurgery 09/16/21 Esther Mathew PA [address] [facility] [address] [place] [phone] Physician Branch Service Leader Neurology 11/19/22 documented as of this encounter
--- OUTSIDE RECORDS SUMMARY | 2025-03-09 13:20 | XMS_ITS | Encounter Summary ---
Author Organization Healthcare Address [address] [place] [address] Care Team Providers Care Fire Patrol Name Role Phone Marc Rodriguez MD Primary Care Provider [phone] Edgardo Zuñiga MD Unavailable [phone] Giulia Briggs PA Unavailable [phone] Edgardo Zuñiga MD Unavailable [phone] Esther Mathew Unavailable [phone] Reason for Visit * Reason Comments Follow-up Encounter Details Date Type Department Care Team (Late st Contact Info) Description 03/09/2025 1:20 PM EDT Office Visit Physical Medicine & Rehabilitation Clinic at [facility] [address] [place] [address] Suzan Galindo DO [address] [facility] [address] [place] [address] High risk medication use (Primary [...] be a TIA. Pt then transitioned to [facility] for inpatient rehab with then dc [...] groomed, in no acute distress, sitting in [facility] Ear, Nose, Mouth and Throat: [...] Physical Medicine & Rehabilitation Clinic at [facility] [address] [place] [address] Suzan Galindo DO [address] [place] [address] 03/07/2026 9:20 AM EDT Office Visit [facility] [address] [place] [address] Edgardo Zuñiga MD [address] [place] [address] documented as of this encounter Results * (ABNORMAL) Comprehensive metabolic panel (03/09/2025 2:40 PM EDT) [facility] Glucose, Plasma 91 74 - 99 mg/dL 03/09/2025 5:10 PM EDT [facility] BUN, Plasma 14 8 - 23 mg/dL 03/09/2025 5:10 PM EDT [facility] Creatinine, Plasma 0.73 0.60 - 1.10 mg/dL 03/09/2025 5:10 PM EDT [facility] BUN/Creatinine Ratio 19 03/09/2025 5:10 PM EDT [facility] Sodium, Plasma 144 136 - 145 mmol/L 03/09/2025 5:10 PM EDT [facility] Potassium, Plasma 5.1(H) 3.6 - 4.9 mmol/L 03/09/2025 5:10 PM EDT [facility] Chloride, Plasma 106 97 - 107 mmol/L 03/09/2025 5:10 PM EDT [facility] CO2, Plasma 28 22 - 29 mmol/L 03/09/2025 5:10 PM EDT [facility] Anion Gap 10 6 - 16 mmol/L 03/09/2025 5:10 PM EDT [facility] Total Calcium, Plasma 9.8 8.9 - 10.2 mg/dL 03/09/2025 5:10 PM EDT [facility] Total Protein 6.6 6.3 - 7.9 g/dL 03/09/2025 5:10 PM EDT [facility] Albumin, Plasma 3.8 3.5 - 5.2 g/dL 03/09/2025 5:10 PM EDT [facility] AST, Plasma 77(H) 10 - 35 U/L 03/09/2025 5:10 PM EDT [facility] ALT, Plasma 38(H) 10 - 35 U/L 03/09/2025 5:10 PM EDT [facility] Alkaline Phosphatase, Plasma 140 46 - 142 U/L 03/09/2025 5:10 PM EDT [facility] Total Bilirubin, Plasma 0.7 0.2 - 1.1 mg/dL 03/09/2025 5:10 PM EDT [facility] eGFRcr 88.0 mL/min/1.7 3m*2 03/09/2025 5:10 PM EDT [facility] Comment:Reported eGFRcr in m L/min/1.73m2 is based the CKD-EPI 2020 equation that does not use a race coefficient. Blood Venous blood specimen / Unknown Venipuncture / Unknown 03/09/2025 2:40 PM EDT 03/09/2025 2:40 PM EDT Suzan Sanchez DO LAB BLOOD ORDERABLES Final Result [facility] [address] [place] [address] documented in this encounter Visit Diagnoses Diagnosis [...] documented as of this encounter Care Teams Fire Patrol Relationship Specialty Start Date End Date Marc Rodriguez MD [address] [place] [address] PCP - General 12/14/20 Edgardo Zuñiga MD [address] [place] [address] Surgeon Neurosurgery 03/04/21 Giulia Briggs PA [address] [place] [address] Physician Wellness Health Coach Neurosurgery 07/03/21 Edgardo Zuñiga MD [address] [place] [address] Surgeon Neurosurgery 09/16/21 Esther Mathew PA [address] [place] [address] Physician Wellness Health Coach Neurology 11/19/22 documented as of this encounter
--- OUTSIDE RECORDS SUMMARY | 2025-03-13 09:45 | XMS_ITS | Encounter Summary ---
[facility] Address [address] [place] [address] Care Team Providers Care Director Of Programming Name Role Phone Marc Rodriguez MD Primary Care Provider [phone] Reason for Visit * Reason Comments Hypertension Hyperlipidemia Encounter Details Date Type Department Care Team (Latest Contact Info) Description 03/13/2025 9:45 AM EDT Office Visit [facility] [address] [facility] [address] [place] [phone] Jimmy Duncan MD [address] [facility] [address] [id number] Primary hypertension (Primary Dx); Hyperlipidemia LDL goal <100; Chronic venous insufficiency of lower extremity Social History Tobacco Use Types Packs/Day Years [...] Sign Reading Time Taken Comments Blood Pressure 124/63 03/13/2025 9:26 AM EDT Pulse 67 03/13/2025 9:26 AM EDT Temperature - - Respiratory Rate - - Oxygen Saturation - - Inhaled Oxygen Concentration - - Weight 78.9 kg (174 lb) 03/13/2025 9:26 AM EDT Height 170.2 cm (5' 7 ) 03/13/2025 9:26 AM EDT Body Mass Index 27.25 03/13/2025 9:26 AM EDT documented in this encounter Progress Notes * Jimmy Duncan MD - 03/13/2025 9:45 AM EDTAssociated Problem(s): Primary hypertension Hypertension is stable and controlled. Family MD started Norvasc 5 mg daily. Patient brought BP logand its average 130 systolic. Continue current treatment regimen. Dietary sodium restriction. Weight loss. Ambulatory blood pressure monitoring. Blood pressure will be reassessed in 6 months. Discussed with patient [employer] and [employer] [employer] provide detailed guidelines for accurate blood pressure measurement. Ghotra steps for proper blood pressure measurement include: Recommend being fully relaxed sitting in chair with feet on the floor and back supported for at least 5 minutes. Avoid caffeine, exercise and smoking for at least 30 minutes before management. Ensureempty bladder, remove clothing covering the location of the cuff placement using proper blood pressure equipment and the blood pressure cuff size should be corrected with bladder encircling 80% of the arm. Repeat blood pressure if blood pressure is extremely high. The ideal blood pressure is less than 120/80 on the average blood pressure should be less than 130/80. * Jimmy Duncan MD - 03/13/2025 9:45 AM EDTAssociated Problem(s): Hyperlipidemia LDL goal <100 Lipid abnormalities are stable Plan: Continue same medication/s without change. Discussed medication dosage, use, side effects, and goals of treatment in detail. Counseled patient on lifestyle modifications to help control hyperlipidemia. Advised patient to exercise for 150 minutes weekly. (30 minute brisk walk, 5 days a week for example) Patient Treatment Goals: LDL goal is less than 55 Followup in 6 months. Continue rosuvastatin 20 mg once a day. Goals discussed in detail. * Jimmy Duncan MD - 03/13/2025 9:45 AM EDTAssociated Problem(s): Chronic venous insufficiency of lower extremity Continue wearing compression socks 20 to 30 mmHg preferably thigh-high if not knee-high to reduce pressure of the superficial veins causing discomfort and swelling, when not wearing compression sockswill recommend keep legs elevated above the waist line on pillow or resurface to reduce the pressure of the lower extremity venous system. Recommend doing regular exercise and weight reduction weightreduction that will decrease the pressure of the deep system and help in venous return that reducesswelling and edema in the lower extremities. * Jimmy Duncan MD - 03/13/2025 9:45 AM EDTAssociated Order(s): ECG 12 Lead Post-Procedure Diagnose(s): Primary hypertension; Hyperlipidemia LDL goal <100; Chronic venous insufficiency of lower extremity Images from the original note were not included. Cardiology Follow-Up Note Name: Sandie Frank : 1955 PCP: Marc Rodriguez MD Date: 03/13/2025 Department: [facility] CARDIOLOGY [address] [facility] [address] [facility] [phone] Chief Complaint Patient presents with Hypertension Hyperlipidemia Problem list: 1. Hypertension benign essential 2D echo 04/09/2023 EF 55 to 60% mild LVH LHC 03/13/2009 normal coronaries EF 65% 2. Hyperlipidemia 3. Chronic venous insufficiency status post ablation Bilateral lower extremity venous duplex post ablation negative for DVT, positive deep system reflux, left GSV occluded following recent cath closure. Subjective History of Present Illness Sandie Frank is a 69 y.o. female who presents today for follow-up on chronic condition, patient has history of hypertension, hyperlipidemia and chronic venous insufficiency. Patient states she is doing well, no chest pain or shortness of breath Past Medical History: Diagnosis Date Adrenal insufficiency Allergic Anemia Anesthesia complication Anginal chest pain at rest Anxiety Arthritis Asthma Back pain Bronchitis Cervical disc disorder with myelopathy, unspecified cervical region Chest pain Chronic left systolic heart failure Chronic pain Chronic venous insufficiency Depression Esophagitis Fibromyalgia GERD (gastroesophageal reflux disease) Glaucoma Glaucoma Heart disease Heart disease High cholesterol History of kidney problems Hypertriglyceridemia Hypothyroidism IBS (irritable bowel syndrome) Kidney disease Kidney stones Left-sided weakness Low back pain Memory loss Migraine Mitral regurgitation MILD BY ECHO Mood disorder Neck pain Numbness and tingling of both feet Obesity Pneumonia Post-operative nausea and vomiting Rheumatoid arthritis Screening for neurological condition Seasonal allergies Seizure disorder Sepsis Shortness of breath Transfusion history Tricuspid regurgitation MILD BY ECHO Weight loss UNEXPLAINED, 50 LBS IN 4 MONTHS Past Surgical History: Procedure Laterality Date APPENDECTOMY 1973 BREAST BIOPSY [id number] multiple CARDIAC CATHETERIZATION 03/13/2009 AE @ [facility]- EF 65%, NL CORONARIES CARPAL TUNNEL RELEASE Right CATARACT EXTRACTION CERVICAL FUSION 07/31/2021 CHOLECYSTECTOMY 1984 COLECTOMY PARTIAL / TOTAL EYE SURGERY - floaters FINGER FRACTURE SURGERY FINGER SURGERY 1971 left index FOOT SURGERY Right GALLBLADDER SURGERY HAMMER TOE REPAIR 2010 HAMMER TOE REPAIR Right 04/18/2014 HYSTERECTOMY KIDNEY STONE SURGERY KIDNEY SURGERY STENTS KNEE ARTHROSCOPY Bilateral LAMINECTOMY 03/18/2024 WITH FUSION EXTENSION OTHER SURGICAL HISTORY 06/05/2016 RIGHT GREATER SAPHENOUS VEIN RF ABLATION WAS COMPLETED WITHOUT DIFFICULTY OTHER SURGICAL HISTORY 03/16/2020 L GREATER SAPHENOUS VEIN RF ABLATION WAS COMPLETED WITHOUT DIFFICULTY PAIN PUMP INSERTION/REVISION SHOULDER SURGERY SPINAL FUSION 03/18/2024 TOTAL HIP ARTHROPLASTY REVISION WRIST SURGERY Left ORIF Current Outpatient Medications: acetaminophen (TYLENOL) 500 MG tablet, Take 2 tablets by mouth Every 6 (Six) Hours As Needed., Disp: , Rfl: aspirin 81 MG chewable tablet, Chew 1 tablet Daily., Disp: , Rfl: baclofen (LIORESAL) 10 MG tablet, Take 1 tablet by mouth 2 (Two) Times a Day., Disp: , Rfl: busPIRone (BUSPAR) 5 MG tablet, Take 1 tablet by mouth 3 (Three) Times a Day., Disp: , Rfl: calcium carbonate (TUMS) 500 MG chewable tablet, Chew 1 tablet Daily. 1250 MG QD, Disp: , Rfl: dantrolene (DANTRIUM) 25 MG capsule, Take 3 capsules by mouth 4 (Four) Times a Day. (Patient takingdifferently: Take 2 capsules by mouth 4 (Four) Times a Day.), Disp: , Rfl: denosumab (PROLIA) 60 MG/ML solution prefilled syringe syringe, Inject 1 mL under the skin into theappropriate area as directed., Disp: , Rfl: donepezil (ARICEPT) 23 MG tablet, Take 1 tablet by mouth Daily., Disp: , Rfl: DULoxetine (CYMBALTA) 60 MG capsule, Take 1 capsule by mouth 2 (Two) Times a Day., Disp: , Rfl: Dupilumab (Dupixent) 300 MG/2ML solution auto-injector injection, Inject 2 mL under the skin into the appropriate area as directed Every 14 (Fourteen) Days., Disp: , Rfl: Emgality 120 MG/ML auto-injector pen, , Disp: , Rfl: fluticasone (Flonase) 50 MCG/ACT nasal spray, 2 sprays by Each Nare route Daily., Disp: 18 mL, Rfl:11 Fluticasone Furoate-Vilanterol 100-25 MCG/ACT aerosol powder , Inhale 1 puff Daily., Disp: 60 each,Rfl: 2 gabapentin (NEURONTIN) 100 MG capsule, Take 1 capsule by mouth 3 (Three) Times a Day., Disp: , Rfl: hydrocortisone (CORTEF) 5 MG tablet, Take 1 tablet by mouth 2 (Two) Times a Day., Disp: , Rfl: lamoTRIgine (LaMICtal) 100 MG tablet, Take 1 tablet by mouth 2 (Two) Times a Day., Disp: , Rfl: levothyroxine (SYNTHROID, LEVOTHROID) 88 MCG tablet, Take 1 tablet by mouth., Disp: , Rfl: Lutein 20 MG tablet, lutein 20 mg tablet Take by oral route., Disp: , Rfl: Melatonin 10 MG capsule, Take 1 capsule by mouth Every Night., Disp: , Rfl: memantine (NAMENDA) 10 MG tablet, Take 1 tablet by mouth 2 (Two) Times a Day., Disp: , Rfl: 11 montelukast (SINGULAIR) 10 MG tablet, Take 1 tablet by mouth every night at bedtime., Disp: 30 tablet, Rfl: 5 Multiple Vitamins-Minerals (MULTIVITAMIN WITH MINERALS) tablet tablet, Take 1 tablet by mouth Daily., Disp: , Rfl: naloxone (NARCAN) 4 MG/0.1ML nasal spray, Narcan 4 mg/actuation nasal spray, Disp: , Rfl: nystatin (MYCOSTATIN) 100,000 unit/mL suspension, Take 5 mL by mouth 4 (Four) Times a Day., Disp: 280 mL, Rfl: 0 ondansetron (ZOFRAN) 4 MG tablet, Take 1 tablet by mouth., Disp: , Rfl: pantoprazole (PROTONIX) 40 MG EC tablet, Take 1 tablet by mouth Daily., Disp: , Rfl: polyethylene glycol (MiraLax) 17 GM/SCOOP powder, Take 17 g by mouth Daily As Needed., Disp: , Rfl: Probiotic Product (PROBIOTIC ADVANCED PO), Take by mouth Daily., Disp: , Rfl: QUEtiapine (SEROquel) 300 MG tablet, Take 1 tablet by mouth Every Night., Disp: , Rfl: rosuvastatin (CRESTOR) 20 MG tablet, Take 1 tablet by mouth Daily., Disp: 90 tablet, Rfl: 0 simethicone (MYLICON) 80 MG chewable tablet, Chew 1 tablet Every 6 (Six) Hours As Needed for Flatulence., Disp: , Rfl: SODIUM BICARB-TARTARIC ACID PO, Take 1 tablet by mouth Every Night., Disp: , Rfl: sodium bicarbonate 650 MG tablet, Take 1 tablet by mouth 2 (Two) Times a Day. (Patient taking differently: Take 1 tablet by mouth 2 (Two) Times a Day. QD), Disp: , Rfl: 6 Trulance 3 MG tablet, Take 1 tablet by mouth Daily., Disp: , Rfl: Ubrelvy 100 MG tablet, TAKE 1 TABLET BY MOUTH ONE TIME NEEDED FOR MIGRAINE. AFTER 2 HOURS, A SECOND DOSE MAY BE TAKEN IF NEEDED. MAX 200MG IN 24 HOURS, Disp: , Rfl: Objective Vital Signs: BP 124/63 (BP Location: Left arm, Patient Position: Sitting, Cuff Size: Adult) Pulse 67 Ht 170.2 cm (67 ) Wt 78.9 kg (174 lb) BMI 27.25 kg/m?? Estimated body mass index is 27.25 kg/m?? as calculated from the following: Height as of this encounter: 170.2 cm (67 ). Weight as of this encounter: 78.9 kg (174 lb). BMI is >= 30 and <35. (Class 1 Obesity). The following options were offered after discussion;: exercise counseling/recommendations Cardiovascular: PMI at left midclavicular line. Normal rate. Regular rhythm. Normal S1. Normal S2. Murmurs: There is no murmur. No gallop. No click. No rub. Pulses: Intact distal pulses. Edema: Peripheral edema absent. ECG 12 Lead Date/Time: 03/13/2025 9:53 AM Performed by: Jimmy Duncan MD Authorized by: Jimmy Duncan MD Comparison: not compared with previous ECG Previous ECG: no previous ECG available Rhythm: sinus rhythm Conduction: right bundle branch block Clinical impression: abnormal EKG Data Review: Lab Results Component Value Date GLUCOSE 110 (H) 03/18/2024 BUN 8 10/17/2021 CREATININE 0.78 10/17/2021 EGFRIFNONA >60 10/17/2021 EGFRIFAFRI >60 10/17/2021 BCR 10 10/17/2021 K 3.2 (L) 03/18/2024 CO2 25 10/17/2021 CALCIUM 8.5 (L) 10/17/2021 ALBUMIN 4.40 02/17/2017 AST 25 02/17/2017 ALT 22 02/17/2017 No results found for: CHOL , CHLPL , TRIG , HDL , LDL , LDLDIRECT Lab Results Component Value Date WBC 6.63 05/22/2024 RBC 3.38 (L) 05/22/2024 HGB 10.4 (L) 05/22/2024 HCT 33.4 (L) 05/22/2024 MCV 99 (H) 05/22/2024 PLT 188 05/22/2024 Lab Results Component Value Date TSH 0.356 07/04/2019 Lab Results Component Value Date HGBA1C 4.9 03/24/2024 Lab Results Component Value Date INR 0.9 05/17/2024 INR 1.0 03/24/2024 INR 1.0 03/01/2024 Labs dated 03/08/2025 BMP okay, LFTs okay, LDL less than 30 triglyceride 91. CBC okay. Assessment and Plan Assessment & Plan Primary hypertension Hypertension is stable and controlled. Family MD started Norvasc 5 mg daily. Patient brought BP logand its average 130 systolic. Continue current treatment regimen. Dietary sodium restriction. Weight loss. Ambulatory blood pressure monitoring. Blood pressure will be reassessed in 6 months. Discussed with patient [employer] [employer] and [place] [employer] provide detailed guidelines for accurate blood pressure measurement. Ghotra steps for proper blood pressure measurement include: Recommend being fully relaxed sitting in chair with feet on the floor and back supported for at least 5 minutes. Avoid caffeine, exercise and smoking for at least 30 minutes before management. Ensureempty bladder, remove clothing covering the location of the cuff placement using proper blood pressure equipment and the blood pressure cuff size should be corrected with bladder encircling 80% of the arm. Repeat blood pressure if blood pressure is extremely high. The ideal blood pressure is less than 120/80 on the average blood pressure should be less than 130/80. Hyperlipidemia LDL goal <100 Lipid abnormalities are stable Plan: Continue same medication/s without change. Discussed medication dosage, use, side effects, and goals of treatment in detail. Counseled patient on lifestyle modifications to help control hyperlipidemia. Advised patient to exercise for 150 minutes weekly. (30 minute brisk walk, 5 days a week for example) Patient Treatment Goals: LDL goal is less than 55 Followup in 6 months. Continue rosuvastatin 20 mg once a day. Goals discussed in detail. Chronic venous insufficiency of lower extremity Continue wearing compression socks 20 to 30 mmHg preferably thigh-high if not knee-high to reduce pressure of the superficial veins causing discomfort and swelling, when not wearing compression sockswill recommend keep legs elevated above the waist line on pillow or resurface to reduce the pressure of the lower extremity venous system. Recommend doing regular exercise and weight reduction weightreduction that will decrease the pressure of the deep system and help in venous return that reducesswelling and edema in the lower extremities. Advised to continue current cardiac medications. Please notify of any issues. Discussed with the patient compliance with medical management and follow-up. Follow Up Return in about 6 months (around 09/13/2025). Call if you have any significant symptoms or go to the [facility] [place] Emergency room if possible. Jimmy Duncan MD, [facility]. [place] [facility] Part of this note may be an electronic equipment engineering technician/translation of spoken language to printed textusing the DrDoctoration System. documented in this encounter Plan of Treatment Upcoming Encounters Date Type Department Care Team (Late st Contact Info) Description 06/26/2025 9:30 AM EST Procedure visit [facility] [address] [facility] [place] [address] 06/26/2025 10:00 AM EST Office Visit [facility] [address] [facility] [place] [phone] Kaitlin Joiner, TORI [address] [place] [address] 09/12/2025 10:00 AM EST Office Visit [facility] CARDIOLOGY [address] [facility] [address] [place] [id number] Jimmy Duncan MD [address] [facility] [address] [place] [address] Scheduled Orders Name Type Priority Associated Diagnoses Orde r Schedule CBC & Differential Lab Panel Routine Primary hypertension Hyperlipidemia LDL goal <100 Chronic venous insufficiency of lower extremity Expected: 03/13/2026 (Approximate) Basic Metabolic Panel Lab Routine Primary hypertension Hyperlipidemia LDL goal <100 Chronic venous insufficiency of lower extremity Expected: 03/13/2026 (Approximate) Lipid Panel Lab Routine Primary hypertension Hyperlipidemia LDL goal <100 Chronic venous insufficiency of lower extremity Expected: 03/13/2026 (Approximate) documented as of this encounter Procedures Procedure Name Priority Date/Time Associated Diagnosis Comments ECG 12-LEAD Routine 03/13/2025 Primary hypertension Hyperlipidemia LDL goal <100 Chronic venous insufficiency of lower extremity documented in this encounter Results * ECG 12-LEAD (03/13/2025) Narrative 03/13/2025 Jimmy Duncan MD 03/13/2025 9:56 AM ECG 12 Lead Date/Time: 03/13/2025 9:53 AM Performed by: Jimmy Duncan MD Authorized by: Jimmy Duncan MD Comparison: not compared with previous ECG Previous ECG: no previous ECG available Rhythm: sinus rhythm Conduction: right bundle branch block Clinical impression: abnormal EKG Procedure Note Jimmy Duncan MD - 03/13/2025 9:45 AM EDT Images from the original note were not included. Cardiology Follow-Up Note Name: Sandie Frank : 1955 PCP: Marc Rodriguez MD Date: 03/13/2025 Department: [facility] [address] [facility] [address] [facility] [id number] Chief Complaint Patient presents with Hypertension Hyperlipidemia Problem list: 1. Hypertension benign essential 2D echo 04/09/2023 EF 55 to 60% mild LVH LHC 03/13/2009 normal coronaries EF 65% 2. Hyperlipidemia 3. Chronic venous insufficiency status post ablation Bilateral lower extremity venous duplex post ablation negative for DVT,positive deep system reflux, left GSV occluded following recent cathclosure. Subjective History of Present Illness Sandie Frank is a 69 y.o. female who presents today for follow-up onchronic condition, patient has history of hypertension, hyperlipidemia andchronic venous insufficiency. Patient states she is doing well, no chestpain or shortness of breath Past Medical History: Diagnosis Date Adrenal insufficiency Allergic Anemia Anesthesia complication Anginal chest pain at rest Anxiety Arthritis Asthma Back pain Bronchitis Cervical disc disorder with myelopathy, unspecified cervical region Chest pain Chronic left systolic heart failure Chronic pain Chronic venous insufficiency Depression Esophagitis Fibromyalgia GERD (gastroesophageal reflux disease) Glaucoma Glaucoma Heart disease Heart disease High cholesterol History of kidney problems Hypertriglyceridemia Hypothyroidism IBS (irritable bowel syndrome) Kidney disease Kidney stones Left-sided weakness Low back pain Memory loss Migraine Mitral regurgitation MILD BY ECHO Mood disorder Neck pain Numbness and tingling of both feet Obesity Pneumonia Post-operative nausea and vomiting Rheumatoid arthritis Screening for neurological condition Seasonal allergies Seizure disorder Sepsis Shortness of breath Transfusion history Tricuspid regurgitation MILD BY ECHO Weight loss UNEXPLAINED, 50 LBS IN 4 MONTHS Past Surgical History: Procedure Laterality Date APPENDECTOMY 1973 BREAST BIOPSY [id number] multiple CARDIAC CATHETERIZATION 03/13/2009 AE @ [facility]- EF 65%, NL CORONARIES CARPAL TUNNEL RELEASE Right CATARACT EXTRACTION CERVICAL FUSION 07/31/2021 CHOLECYSTECTOMY 1984 COLECTOMY PARTIAL / TOTAL EYE SURGERY - floaters FINGER FRACTURE SURGERY FINGER SURGERY 1971 left index FOOT SURGERY Right GALLBLADDER SURGERY HAMMER TOE REPAIR 2011 HAMMER TOE REPAIR Right 04/18/2014 HYSTERECTOMY KIDNEY STONE SURGERY KIDNEY SURGERY STENTS KNEE ARTHROSCOPY Bilateral LAMINECTOMY 03/18/2024 WITH FUSION EXTENSION OTHER SURGICAL HISTORY 06/05/2016 RIGHT GREATER SAPHENOUS VEIN RF ABLATION WAS COMPLETED WITHOUT DIFFICULTY OTHER SURGICAL HISTORY 03/16/2020 L GREATER SAPHENOUS VEIN RF ABLATION WAS COMPLETED WITHOUT DIFFICULTY PAIN PUMP INSERTION/REVISION SHOULDER SURGERY SPINAL FUSION 03/18/2024 TOTAL HIP ARTHROPLASTY REVISION WRIST SURGERY Left ORIF Current Outpatient Medications: acetaminophen (TYLENOL) 500 MG tablet, Take 2 tablets by mouth Every 6(Six) Hours As Needed., Disp: , Rfl: aspirin 81 MG chewable tablet, Chew 1 tablet Daily., Disp: , Rfl: baclofen (LIORESAL) 10 MG tablet, Take 1 tablet by mouth 2 (Two) Times aDay., Disp: , Rfl: busPIRone (BUSPAR) 5 MG tablet, Take 1 tablet by mouth 3 (Three) Times aDay., Disp: , Rfl: calcium carbonate (TUMS) 500 MG chewable tablet, Chew 1 tablet Daily.1250 MG QD, Disp: , Rfl: dantrolene (DANTRIUM) 25 MG capsule, Take 3 capsules by mouth 4 (Four)Times a Day. (Patient taking differently: Take 2 capsules by mouth 4(Four) Times a Day.), Disp: , Rfl: denosumab (PROLIA) 60 MG/ML solution prefilled syringe syringe, Inject 1mL under the skin into the appropriate area as directed., Disp: , Rfl: donepezil (ARICEPT) 23 MG tablet, Take 1 tablet by mouth Daily., Disp: ,Rfl: DULoxetine (CYMBALTA) 60 MG capsule, Take 1 capsule by mouth 2 (Two)Times a Day., Disp: , Rfl: Dupilumab (Dupixent) 300 MG/2ML solution auto-injector injection, Inject2 mL under the skin into the appropriate area as directed Every 14(Fourteen) Days., Disp: , Rfl: Emgality 120 MG/ML auto-injector pen, , Disp: , Rfl: fluticasone (Flonase) 50 MCG/ACT nasal spray, 2 sprays by Each Nareroute Daily., Disp: 18 mL, Rfl: 11 Fluticasone Furoate-Vilanterol 100-25 MCG/ACT aerosol powder , Inhale 1puff Daily., Disp: 60 each, Rfl: 2 gabapentin (NEURONTIN) 100 MG capsule, Take 1 capsule by mouth 3 (Three)Times a Day., Disp: , Rfl: hydrocortisone (CORTEF) 5 MG tablet, Take 1 tablet by mouth 2 (Two)Times a Day., Disp: , Rfl: lamoTRIgine (LaMICtal) 100 MG tablet, Take 1 tablet by mouth 2 (Two)Times a Day., Disp: , Rfl: levothyroxine (SYNTHROID, LEVOTHROID) 88 MCG tablet, Take 1 tablet bymouth., Disp: , Rfl: Lutein 20 MG tablet, lutein 20 mg tablet Take by oral route., Disp: ,Rfl: Melatonin 10 MG capsule, Take 1 capsule by mouth Every Night., Disp: ,Rfl: memantine (NAMENDA) 10 MG tablet, Take 1 tablet by mouth 2 (Two) Times aDay., Disp: , Rfl: 11 montelukast (SINGULAIR) 10 MG tablet, Take 1 tablet by mouth every nightat bedtime., Disp: 30 tablet, Rfl: 5 Multiple Vitamins-Minerals (MULTIVITAMIN WITH MINERALS) tablet tablet,Take 1 tablet by mouth Daily., Disp: , Rfl: naloxone (NARCAN) 4 MG/0.1ML nasal spray, Narcan 4 mg/actuation nasalspray, Disp: , Rfl: nystatin (MYCOSTATIN) 100,000 unit/mL suspension, Take 5 mL by mouth 4(Four) Times a Day., Disp: 280 mL, Rfl: 0 ondansetron (ZOFRAN) 4 MG tablet, Take 1 tablet by mouth., Disp: , Rfl: pantoprazole (PROTONIX) 40 MG EC tablet, Take 1 tablet by mouth Daily.,Disp: , Rfl: polyethylene glycol (MiraLax) 17 GM/SCOOP powder, Take 17 g by mouthDaily As Needed., Disp: , Rfl: Probiotic Product (PROBIOTIC ADVANCED PO), Take by mouth Daily., Disp:, Rfl: QUEtiapine (SEROquel) 300 MG tablet, Take 1 tablet by mouth EveryNight., Disp: , Rfl: rosuvastatin (CRESTOR) 20 MG tablet, Take 1 tablet by mouth Daily.,Disp: 90 tablet, Rfl: 0 simethicone (MYLICON) 80 MG chewable tablet, Chew 1 tablet Every 6 (Six)Hours As Needed for Flatulence., Disp: , Rfl: SODIUM BICARB-TARTARIC ACID PO, Take 1 tablet by mouth Every Night.,Disp: , Rfl: sodium bicarbonate 650 MG tablet, Take 1 tablet by mouth 2 (Two) Times aDay. (Patient taking differently: Take 1 tablet by mouth 2 (Two) Times aDay. QD), Disp: , Rfl: 6 Trulance 3 MG tablet, Take 1 tablet by mouth Daily., Disp: , Rfl: Ubrelvy 100 MG tablet, TAKE 1 TABLET BY MOUTH ONE TIME NEEDED FORMIGRAINE. AFTER 2 HOURS, A SECOND DOSE MAY BE TAKEN IF NEEDED. MAX 200MGIN 24 HOURS, Disp: , Rfl: Objective Vital Signs: BP 124/63 (BP Location: Left arm, Patient Position: Sitting, Cuff Size:Adult) Pulse 67 Ht 170.2 cm (67 ) Wt 78.9 kg (174 lb) BMI27.25 kg/m Estimated body mass index is 27.25 kg/m as calculated from thefollowing: Height as of this encounter: 170.2 cm (67 ). Weight as of this encounter: 78.9 kg (174 lb). BMI is >= 30 and <35. (Class 1 Obesity). The following options wereoffered after discussion;: exercise counseling/recommendations Cardiovascular: PMI at left midclavicular line. Normal rate. Regular rhythm. Normal S1.Normal S2. Murmurs: There is no murmur. No gallop. No click. No rub. Pulses: Intact distal pulses. Edema: Peripheral edema absent. ECG 12 Lead Date/Time: 03/13/2025 9:53 AM Performed by: Jimmy Duncan MD Authorized by: Jimmy Duncan MD Comparison: not compared with previousECG Previous ECG: no previous ECG available Rhythm: sinus rhythm Conduction: right bundle branch block Clinical impression: abnormal EKG Data Review: Lab Results Component Value Date GLUCOSE 110 (H) 03/18/2024 BUN 8 10/17/2021 CREATININE 0.78 10/17/2021 EGFRIFNONA >60 10/17/2021 EGFRIFAFRI >60 10/17/2021 BCR 10 10/17/2021 K 3.2 (L) 03/18/2024 CO2 25 10/17/2021 CALCIUM 8.5 (L) 10/17/2021 ALBUMIN 4.40 02/17/2017 AST 25 02/17/2017 ALT 22 02/17/2017 No results found for: CHOL , CHLPL , TRIG , HDL , LDL , LDLDIRECT Lab Results Component Value Date WBC 6.63 05/22/2024 RBC 3.38 (L) 05/22/2024 HGB 10.4 (L) 05/22/2024 HCT 33.4 (L) 05/22/2024 MCV 99 (H) 05/22/2024 PLT 188 05/22/2024 Lab Results Component Value Date TSH 0.356 07/04/2019 Lab Results Component Value Date HGBA1C 4.9 03/24/2024 Lab Results Component Value Date INR 0.9 05/17/2024 INR 1.0 03/24/2024 INR 1.0 03/01/2024 Labs dated 03/08/2025 BMP okay, LFTs okay, LDL less than 30 triglyceride 91.CBC okay. Assessment and Plan Assessment & Plan Primary hypertension Hypertension is stable and controlled. Family MD started Norvasc 5 mgdaily. Patient brought BP log and its average 130 systolic. Continue current treatment regimen. Dietary sodium restriction. Weight loss. Ambulatory blood pressure monitoring. Blood pressure will be reassessed in 6 months. Discussed with patient [employer] and [place] [employer] provide detailed guidelines for accurate blood pressuremeasurement. Ghorta steps for proper blood pressure measurement include: Recommend being fully relaxed sitting in chair with feet on the floor andback supported for at least 5 minutes. Avoid caffeine, exercise andsmoking for at least 30 minutes before management. Ensure empty bladder,remove clothing covering the location of the cuff placement using properblood pressure equipment and the blood pressure cuff size should becorrected with bladder encircling 80% of the arm. Repeat blood pressureif blood pressure is extremely high. The ideal blood pressure is lessthan 120/80 on the average blood pressure should be less than 130/80. Hyperlipidemia LDL goal <100 Lipid abnormalities are stable Plan: Continue same medication/s without change. Discussed medication dosage, use, side effects, and goals of treatment indetail. Counseled patient on lifestyle modifications to help controlhyperlipidemia. Advised patient to exercise for 150 minutes weekly. (30 minute brisk walk,5 days a week for example) Patient Treatment Goals: LDL goal is less than 55 Followup in 6 months. Continue rosuvastatin 20 mg once a day. Goals discussed in detail. Chronic venous insufficiency of lower extremity Continue wearing compression socks 20 to 30 mmHg preferably thigh-high ifnot knee-high to reduce pressure of the superficial veins causingdiscomfort and swelling, when not wearing compression socks will recommendkeep legs elevated above the waist line on pillow or resurface to reducethe pressure of the lower extremity venous system. Recommend doingregular exercise and weight reduction weight reduction that will decreasethe pressure of the deep system and help in venous return that reducesswelling and edema in the lower extremities. Advised to continue current cardiac medications. Please notify of anyissues. Discussed with the patient compliance with medical management andfollow-up. Follow Up Return in about 6 months (around 09/13/2025). Call if you have any significant symptoms or go to the [facility] [place] if possible. Jimmy Duncan MD, [facility]. [place] [facility] Part of this note may be an electronic equipment engineering technician/translation of spokenlanguage to printed text using the DrDoctoration System. us Jimmy Duncan MD ECG ORDERABLES Final Result documented in this encounter Visit Diagnoses Diagnosis Primary hypertension- Primary Unspecified essential hypertension Hyperlipidemia LDL goal <100 Other and unspecified hyperlipidemia Chronic venous insufficiency of lower extremity documented in this encounter Care Teams Director Of Programming Relationship Specialty Start Date End Date Marc Rodriguez MD [address] [facility] [address] [place] [address] PCP - General Adolescent Medicine 12/08/16 documented as of this encounter
--- OUTSIDE RECORDS SUMMARY | 2025-04-21 14:03 | XMS_ITS | Encounter Summary ---
Author Organization [facility] Address [address] [place] [address] Care Team Providers Care Financial Institution President Name Role Phone Marc Rodriguez MD Primary Care Provider [phone] Reason for Visit * Reason Onset Date Comments DR. GOSS - MARIE ORDERS 03/07/2025 Encounter Details Date Type Department Care Team (Late st Contact Info) Description 03/07/2025 Telephone [facility] CARDIOLOGY [address] [facility] [address] [place] [address] Jimmy Goss MD [address] [facility] [address] [address] DR. GOSS - MARIE ORDERS Social History [...] 03/07/2025 9:23 AM EDT FAXED ORDERS TO [facility] @ [phone] * Telephone Encounter - Jono Soler RegSched Rep - 03/07/2025 8:25 AM EDT Caller: Sandie Frank Relationship: Self Best call back number: [phone] What orders are you requesting (i.e. lab or imaging): LAB ORDERS In what timeframe would the patient need to come in: [facility] Where will you receive your lab/imaging services: [facility] Additional notes: PT SAYS FACILITY HAS NOT RECEIVED THESE ORDERS YET. PLEASE RESEND THESE ORDERS WHEN AVAILABLE TO [phone]. PLEASE CALL PT AFTER THIS HAS BEEN DONE. documented in this encounter Plan of Treatment Upcoming Encounters Date Type Department Care Team (Late st Contact Info) Description 06/26/2025 9:30 AM EST Procedure visit [facility] PULMONARY & CRITICAL CARE MEDICINE [address] [place] [address] 06/26/2025 10:00 AM EST Office Visit [facility] PULMONARY & CRITICAL CARE MEDICINE [address] [place] [address] Kaitlin Joiner, MANAGER PRODUCTION [address] [place] [address] 09/12/2025 10:00 AM EST Office Visit [facility] CARDIOLOGY [address] [facility] [address] [place] [address] Jimmy Goss MD [address] [facility] [address] [place] [address] documented as of this encounter Visit Diagnoses Not on filedocumented in this encounter Care Teams Financial Institution President Relationship Specialty Start Date End Date Marc Rodriguez MD [address] [facility] [address] [place] [address] PCP - General Adolescent Medicine 12/08/16 documented as of this encounter
--- OUTSIDE RECORDS SUMMARY | 2025-04-21 14:03 | XMS_ITS | Encounter Summary ---
Author Organization [facility] Address [address] [place] [address] Care Team Providers Care Engine House Helper Name Role Phone Marc Rodriguez MD Primary Care Provider [phone] Encounter Details Date Type Department Care Team (Late st Contact Info) Description 06/23/2019 External CPT II SUPPLY AIDE - [facility] Social History Tobacco Use [...] PULMONARY & CRITICAL CARE MEDICINE [address] [place] [address] 06/26/2025 10:00 AM EST Office Visit [facility] PULMONARY & CRITICAL CARE MEDICINE [address] [place] [address] Kaitlin Joiner, TORI [address] [place] [address] 09/12/2025 10:00 AM EST Office Visit [facility] CARDIOLOGY [address] [facility] [address] [place] [address] Jimmy Duncan MD [address] [facility] [address] [place] [address] documented as of this encounter Visit Diagnoses [...] documented as of this encounter Care Teams Engine House Helper Relationship Specialty Start Date End Date Marc Rodriguez MD [address] [facility] [address] [facility] [place] [address] PCP - General Adolescent Medicine 12/08/16 documented as of this encounter
--- OUTSIDE RECORDS SUMMARY | 2025-04-21 14:03 | XMS_ITS | Clinical Summary ---
Author Organization [facility] Address [address] [place] [address] Care Team Providers Care Loading Machine Tool Setter Name Role Phone Marc Rodriguez MD Primary Care Provider [phone] Edgardo Zuñiga MD Unavailable [phone] Giulia Briggs Unavailable [phone] Edgardo Zuñiga MD Unavailable [phone] Esther Mathew Unavailable [phone] Allergies Active Allergy Reactions Criticality Noted Date [...] (07/02/2021): Added automatically from request for surgery [id number] Chronic bilateral low back pain with bilateral s ciatica 04/22/2021 Overview (04/22/2021): Added automatically from request for surgery [id number] Environmental and seasonal allergies 11/12/2020 Restless legs [...] (04/22/2021): Added automatically from request for surgery [id number] Spinal stenosis, lumbar clara on without neurogenic claudication 04/22/2021 10/18/2021 Overview (04/22/2021): Added automatically from request for surgery [id number] Spondylolisthesis at L4-L5 level 04/22/2021 10/18/2021 Overview (04/22/2021): Added automatically from request for surgery [id number] AVN (avascular necrosis of bone) 08/30/2018 07/30/2021 Rotator cuff arthropathy 08/30/2018 Decreased range of motion of shoulder 07/22/2018 07/30/2021 Humeral fracture 04/01/2018 07/30/2021 Biceps tendonitis 04/01/2018 07/30/2021 Rotator cuff dysfunction 04/01/2018 Purpura 06/19/2017 07/30/2021 Itching 06/02/2017 07/30/2021 Status migrainosus 08/08/2015 Encounters Date Type Department Care Team Description 04/17/2025 [facility]ill [facility] [address] [place] [address] Esther Mathew, PA 04/07/2025 Telephone [facility] at [facility] [address] [place] [place] [address] Suzan Galindo DO HCN Clinical Concern/Question 03/10/2025 Orders Only [facility] [address] [place] [address] Tony Galindoa, DO 03/10/2025 Refill [facility] [address] [place] [place] [address] Suzan Galindo, DO 03/10/2025 Results Follow-Up [facility] [address] [place] [place] [address] Suzan Galindo, DO 03/09/2025 1:20 PM EDT Office Visit [facility] [address] [place] [place] [address] Suzan Galindo, DO High risk medication use (Primary Dx); Total self-care deficit; Impaired cognition; Cervical cord compression with myelopathy (CMS/HCC) 03/09/2025 Travel 03/08/2025 2:06 PM EDT - 03/08/2025 11:59 PM EDT Hospital Encounter [facility] [address] [place] [address] S/P lumbar fusion Discharge Disposition: Home or Self Care 03/08/2025 1:40 PM EDT Office Visit [facility] [address], [address] [place] [address] Edgardo Zuñiga MD S/P lumbar fusion (Primary Dx) 03/08/2025 Travel 03/07/2025 Orders Only [facility] [address], [address] [place] [address] Edgardo Zuñiga MD S/P lumbar fusion (Primary Dx) 02/28/2025 Refill [facility] [address], [address] [place] [address] Esther Mathew PA from Last 3 Months [...] place to sleep or slept in a alf (including now)? No 05/13/2024 PHQ-9 Answer Date Recorded Patient Health Questionnaire-9 Score 0 07/05/2024 Utilities Answer Date Recorded In the past 12 months has th e [employer], gas, oil, or water company threatened to [...] [facility] [address] [place] [address] Suzan Galindo DO [address] [place] [address] 03/07/2026 9:20 AM EDT [facility] [address] [place] [address] Edgardo Zuñiga MD [address] [place] [address] Health Maintenance Due Date Last Done Comments [facility]-Bone Density Scan 1955 [facility]-Medicare Annual Wellness (AWV) 1955 [facility]-/Child/Adol SDOH Screenings 1953 CT Colonography 1998 Colonoscopy 1998 FIT-DNA 1998 FIT 1998 FOBT 1998 Sigmoidoscopy 1998 [facility]-Colorectal Cancer Screening 1998 [facility]-Breast Cancer Screening 11/01/2003 [facility]- SDOH Screenings 11/11/2024 [facility]-Adult SDOH Screenings 11/11/2024 05/13/2024 [id number] Vaccine ( season) 2025 07/15/2023, 04/30/2022, 12/19/2021, [...] this topic Medical Devices Implanted Type Area Briar Wood Sorter Device Identifier Shelf Expiration Date Model / Serial / Lot Cif Ui H 8mm 8deg S - [id number] Implanted:Qty : 1 on 07/31/2021 by Edgardo Zuñiga MD at [facility] Cage N/A: Spine Cervical DePuy Spine Sales LP-[id number] 01/31/2024 [id number] / / [id number] Synchromed Iii Implanted:Qty : 1 on 10/09/2023 Pain Pump Abdomen Medtronic 8667-20 / [id number] / One Level Plate, 12mm - S. - [id number] Implanted:Qty : 1 on 07/31/2021 by Edgardo Zuñiga MD at [facility] Plate N/A: Spine Cervical DePuy Spine Sales LP-635483 07/31/2021 [id number] / . / Pre-Lordosed Joe W/ Line 40mm - [id number] Implanted:Qty : 2 on 10/16/2021 by Edgardo Zuñiga MD at [facility] Joe Spine Lumbar DePuy Spine Sales LP-[id number] 10/16/2022 [id number] / / Self Drilling Screw 16mm - S. - [id number] Implanted:Qty : 4 on 07/31/2021 by Edgardo Zuñiga MD at [facility] Screw N/A: Spine Cervical DePuy Spine Sales LP-[id number] 07/31/2022 [id number] / . / Screw 5.5mm Viper Ti Fen Crtcl Polyax 8mm X 50mm - [id number] Implanted:Qty : 4 on 10/16/2021 by Edgardo Zuñiga MD at [facility] Screw Spine Lumbar DePuy Spine Sales LP-200954 10/16/2022 [id number] / / Spinal Cord Stimulator Spinal Cord Stimulator [facility] Bitvore [id number] / [id number] / Description:LEADS (2): MODEL # [id number] Graft Vivigen 1cc - [id number] Implanted:Qty : 1 on 07/31/2021 by Edgardo Zuñiga MD at [facility]-[id number] 07/15/2022 BL-1500-001 / / [id number] Graft Vivigen 5cc - [id number] Implanted:Qty : 1 on 10/16/2021 by Edgardo Zuñiga MD at [facility] Spine Lumbar [facility]-035534 10/11/2022 BL-1500-002 / / [id number] Post Ibf Ui H 12mm 8deg 24/04 - [id number] Implanted:Qty : 1 on 10/16/2021 by Edgardo Zuñiga MD at [facility] Spine Lumbar DePuy Spine Sales LP-[id number] 02/01/2022 [id number] / / Post Ibf Ui H 12mm 8deg 24/04 - [id number] Implanted:Qty : 1 on 10/16/2021 by Edgardo Zuñiga MD at [facility] Spine Lumbar DePuy Spine Sales LP-[id number] 05/02/2025 [id number] / / Single Inner Setscrew - [id number] Implanted:Qty : 4 on 10/16/2021 by Edgardo Zuñiga MD at [facility] Spine Lumbar DePuy Spine Sales LP-[id number] 10/16/2022 [id number] / / Graft Vivigen 15cc - [id number] - [id number] Implanted:Qty : 1 on 03/18/2024 by Edgardo Zuñiga MD at [facility] N/A: Spine Lumbar [facility]-575859 02/02/2025 BL-1500-004 -4PK / [id number] / [id number] Screw 5.5mm Viper Ti Fen Crtcl Polyax 7mm X 50mm - [id number] Implanted:Qty : 3 on 03/18/2024 by Edgardo Zuñiga MD at [facility] N/A: Spine Lumbar DePuy Spine [employer]-[id number] / / Single Inner Setscrew - [id number] Implanted:Qty : 6 on 03/18/2024 by Edgardo Zuñiga MD at [facility] N/A: Spine Lumbar DePuy Spine [employer]-[id number] / / Pre-Lordosed Joe W/ Line 65mm - [id number] Implanted:Qty : 2 on 03/18/2024 by Edgardo Zuñiga MD at [facility] N/A: Spine Lumbar DePuy Spine [employer]estyr-[id number] / / Procedures Procedure Name Priority Date/Time [...] - 99 mg/dL 03/09/2025 5:10 PM EDT [facility] BUN, Plasma 14 8 - 23 mg/dL 03/09/2025 5:10 PM EDT [facility] Creatinine, Plasma 0.73 0.60 - 1.10 mg/dL 03/09/2025 5:10 PM EDT [facility] BUN/Creatinine Ratio 19 03/09/2025 5:10 PM EDT [facility] Sodium, Plasma 144 136 - 145 mmol/L 03/09/2025 5:10 PM EDT [facility] Potassium, Plasma 5.1(H) 3.6 - 4.9 mmol/L 03/09/2025 5:10 PM EDT [facility] Chloride, Plasma 106 97 - 107 mmol/L 03/09/2025 5:10 PM EDT [facility] CO2, Plasma 28 22 - 29 mmol/L 03/09/2025 5:10 PM EDT [facility] Anion Gap 10 6 - 16 mmol/L 03/09/2025 5:10 PM EDT [facility] Total Calcium, Plasma 9.8 8.9 - 10.2 mg/dL 03/09/2025 5:10 PM EDT [facility] Total Protein 6.6 6.3 - 7.9 g/dL 03/09/2025 5:10 PM EDT [facility] Albumin, Plasma 3.8 3.5 - 5.2 g/dL 03/09/2025 5:10 PM EDT [facility] AST, Plasma 77(H) 10 - 35 U/L 03/09/2025 5:10 PM EDT [facility] ALT, Plasma 38(H) 10 - 35 U/L 03/09/2025 5:10 PM EDT [facility] Alkaline Phosphatase, Plasma 140 46 - 142 U/L 03/09/2025 5:10 PM EDT [facility] Total Bilirubin, Plasma 0.7 0.2 - 1.1 mg/dL 03/09/2025 5:10 PM EDT [facility] eGFRcr 88.0 mL/min/1.7 3m*2 03/09/2025 5:10 PM EDT [facility] Comment:Reported eGFRcr in m L/min/1.73m2 is based the CKD-EPI 2020 equation that does not use a race coefficient. Blood Venous blood specimen / Unknown Venipuncture / Unknown 03/09/2025 2:40 PM EDT 03/09/2025 2:40 PM EDT us Suzan Sanchez DO LAB BLOOD ORDERABLES Final Result [facility] [address] [place] [address] * XR Lumbar Spine 4+ Views w Flexion Extension (03/08/2025 2:40 PM EDT) Anatomical Region Laterality Modality Spine, L-spine Digital Radiogra phy Impressions 03/08/2025 2:48 PM EDT L3-5 posterior fusion with alignment as described. No hardware failure or loosening. No abnormal motion. CRITICAL RESULT: No. COMMUNICATION: Per this written report. Drafted by Subhash Welhs MD on 03/08/2025 2:46 PM Final report [...] Antibody Negative Negative 04/25/2024 11:46 PM EDT [facility] Blood Venous blood specimen / Unknown Venipuncture / Unknown 04/25/2024 10:55 PM EDT 04/25/2024 11:05 PM EDT us Yelena Mcqueen MD LAB BLOOD ORDERABLES Final Res ult [facility] [address] [place] [address] from Last 3 Months or Most Recently Relevant to Health Maintenance [place] [address] MEDICARE [facility] Advance Directives * Full Code (Latest Code [...] Patient has decision-making capacity? Yes Care Teams Loading Machine Tool Setter Relationship Specialty Start Date End Date Marc Rodriguez MD [address] [place] [address] PCP - General 12/14/20 Edgardo Zuñiga MD [address] [place] [address] Surgeon Neurosurgery 03/04/21 Giulia Briggs PA [address] [place] [address] Physician Therapist Radiation Neurosurgery 07/03/21 Edgardo Zuñiga MD [address] [place] [address] Surgeon Neurosurgery 09/16/21 Esther Mathew PA [address] [place] [address] Physician Therapist Radiation Neurology 11/19/22
--- OUTSIDE RECORDS SUMMARY | 2025-04-21 14:03 | XMS_ITS | Clinical Summary ---
Author Organization [facility] Address [address] [place] [address] Phone Care Team Providers Care Senior Engineering Specialist Name Role Phone Rodrigo Avelar MD. Unavailable [phone] Conditions or Problems No information available. Medications No information available. Medications Administered No information available. Allergies, Adverse Reactions, Alerts No information available. Results No information available. Plan of Care No information available. Procedures No information available. Vital Signs No information available. Immunizations No information available. Advance Directives No information available.
--- OUTSIDE RECORDS SUMMARY | 2025-04-21 14:03 | XMS_ITS | Encounter Summary ---
Author Organization [facility] Address [address] [place] [address] Care Team Providers Care Assembler Dry Cell And Battery Name Role Phone Marc Rodriguez MD Primary Care Provider [phone] Encounter Details Date Type Department Care Team (Late st Contact Info) Description 02/08/2016 External CPT II MAGENTO WEB DEVELOPER - [facility] Social History Tobacco [...] Description 06/26/2025 9:30 AM EST Procedure visit [facility] PULMONARY & CRITICAL CARE MEDICINE [address] [place] [address] 06/26/2025 10:00 AM EST Office Visit [facility] PULMONARY & CRITICAL CARE MEDICINE [address] [place] [address] Kaitlin Joiner APRN [address] [place] [address] 09/12/2025 10:00 AM EST Office Visit [facility] CARDIOLOGY [address] [facility] [address] [place] [address] Jimmy Duncan MD [address] [facility] [address] [place] [address] documented as of this encounter Visit Diagnoses [...] documented as of this encounter Care Teams Assembler Dry Cell And Battery Relationship Specialty Start Date End Date Marc Rodriguez MD [address] [facility] [address] [place] [address] PCP - General Adolescent Medicine 12/08/16 documented as of this encounter
--- OUTSIDE RECORDS SUMMARY | 2025-04-21 14:03 | XMS_ITS | Encounter Summary ---
Author Organization [facility] Address [address] [place] [address] Care Team Providers Care Pig Machine Operator Helper Name Role Phone Marc Rodriguez MD Primary Care Provider [phone] Encounter Details Date Type Department Care Team (Late st Contact Info) Description 11/26/2018 External CPT II SPORTS ATTORNEY - [facility] Social History Tobacco Use [...] Description 06/26/2025 9:30 AM EST Procedure visit [facility] PUL[facility] CRITICAL CARE MEDICINE [address] [place] [address] 06/26/2025 10:00 AM EST Office Visit [facility] PULMONARY & CRITICAL CARE MEDICINE [address] [place] [address] Kaitlin Joiner, WING MAILER MACHINE OPERATOR [address] [place] [address] 09/12/2025 10:00 AM EST Office Visit [facility] CARDIOLOGY [address] [facility] [address] [place] [address] Jimmy Duncan MD [address] [facility] [address] [place] [address] documented as of this encounter Visit Diagnoses [...] documented as of this encounter Care Teams Pig Machine Operator Helper Relationship Specialty Start Date End Date Marc Rodriguez MD [address] [facility] [address] [facility] [place] [id number] PCP - General Adolescent Medicine 12/08/16 documented as of this encounter
--- OUTSIDE RECORDS SUMMARY | 2025-04-21 14:03 | XMS_ITS | Encounter Summary ---
Author Organization [facility] Address [address] [place] [address] Care Team Providers Care Liquor Department Manager Name Role Phone Marc Rodriguez MD Primary Care Provider [phone] Encounter Details Date Type Department Care Team (Late st Contact Info) Description 08/20/2015 External CPT II SOCIAL WORKER - [facility] Social History Tobacco Use [...] PULMONARY & CRITICAL CARE MEDICINE [address] [place] [address] 06/26/2025 10:00 AM EST Office Visit [facility] PULMONARY & CRITICAL CARE MEDICINE [address] [place] [address] Kaitlin Joiner, SHEAR OPERATOR HELPER [address] [place] [address] 09/12/2025 10:00 AM EST Office Visit [facility]IOLOG[facility] [address] [place] [address] Jimmy Duncan MD [address] [facility] [address] [place] [address] documented as of this encounter Visit Diagnoses [...] documented as of this encounter Care Teams Liquor Department Manager Relationship Specialty Start Date End Date Marc Rodriguez MD [address] [facility] [address] [place] [address] PCP - General Adolescent Medicine 12/08/16 documented as of this encounter
--- OUTSIDE RECORDS SUMMARY | 2025-04-21 14:03 | XMS_ITS | Encounter Summary ---
Author Organization [facility] Address [address] [place] [address] Care Team Providers Care Chain Hooker Name Role Phone Marc Rodriguez MD Primary Care Provider [phone] Edgadro Zuñiga MD Unavailable [phone] Giulia Briggs Unavailable [phone] Edgardo Zuñiga MD Unavailable [phone] Esther Mathew Unavailable [phone] Encounter Details Date Type Department Care Team [...] place to sleep or slept in a skilled nursing (including now)? No 05/13/2024 PHQ-9 Answer Date [...] Physical Medicine & Rehabilitation Clinic at [facility] [address] [place] [address] Suzan Galindo DO [address] [place] [address] 03/07/2026 9:20 AM EDT Office Visit [facility] Orthopaedic Surgery & Sports Medicine [address] 1[address] [place] [address] Edgardo Zuñiga MD [address] [place] [address] documented as of this encounter Visit Diagnoses [...] documented as of this encounter Care Teams Chain Hooker Relationship Specialty Start Date End Date Marc Rodriguez MD [address] [place] [address] PCP - General 12/14/20 Edgardo Zuñiga MD [address] [place] [address] Surgeon Neurosurgery 03/04/21 Giulia Briggs PA [address] [place] [address] Physician Solar/Renewable Energy Sales Neurosurgery 07/03/21 Edgardo Zuñiga MD [address] [place] [address] Surgeon Neurosurgery 09/16/21 Esther Mathew PA [address] [place] [address] Physician Solar/Renewable Energy Sales Neurology 11/19/22 documented as of this encounter
--- OUTSIDE RECORDS SUMMARY | 2025-04-21 14:03 | XMS_ITS | Encounter Summary ---
Author Organization [facility] Address [address] [place] [address] Care Team Providers Care Manager Of Software Development Name Role Phone Marc Rodriguez MD Primary Care Provider [phone] Encounter Details Date Type Department Care Team (Late st Contact Info) Description 11/27/2015 External CPT II SCREWHEAD POLISHER - [facility] Social History Tobacco Use [...] Description 06/26/2025 9:30 AM EST Procedure visit [facility] PULMONARY & CRITICAL CARE MEDICINE [address] [place] [address] 06/26/2025 10:00 AM EST Office Visit [facility] PULMONARY & CRITICAL CARE MEDICINE [address] [place] [address] Kaitlin Joiner APRN [address] [place] [address] 09/12/2025 10:00 AM EST Office Visit [facility] CARDIOLOGY [address] [facility] [address] [place] [address] Jimmy Duncan MD [address] [facility] [address] [place] [address] documented as of this encounter Visit Diagnoses [...] of this encounter Care Teams Manager Of Software Development Relationship Specialty Start Date End Date Marc Rodriguez MD [address] [facility] [address] [place] [address] PCP - General Adolescent Medicine 12/08/16 documented as of this encounter
--- OUTSIDE RECORDS SUMMARY | 2025-04-21 14:03 | XMS_ITS | Encounter Summary ---
Author Organization [facility] Address [address] [place] [address] Care Team Providers Care Medical Services Assistant Name Role Phone Marc Rodriguez MD Primary Care Provider [phone] Encounter Details Date Type Department Care Team (Late st Contact Info) Description 07/31/2015 External CPT II STEAM FINISHER - [facility] Social History Tobacco Use [...] PULMONARY & CRITICAL CARE MEDICINE [address] [place] [address] 06/26/2025 10:00 AM EST Office Visit [facility] PULMONARY & CRITICAL CARE MEDICINE [address] [place] [address] Kaitlin Joiner, TOUR BUS DRIVER/GUIDE [address] [place] [address] 09/12/2025 10:00 AM EST Office Visit [facility]IOLOGY [address] [facility] [address] [place] [address] Jimmy Duncan MD [address] [facility] [address] [place] [address] documented as of this encounter Visit Diagnoses [...] as of this encounter Care Teams Medical Services Assistant Relationship Specialty Start Date End Date Marc Rodriguez MD [address] [facility] [address] [place] [address] PCP - General Adolescent Medicine 12/08/16 documented as of this encounter
--- OUTSIDE RECORDS SUMMARY | 2025-04-21 14:03 | XMS_ITS | Encounter Summary ---
Author Organization [facility] Address [address] [place] [address] Care Team Providers Care Football Coach Name Role Phone Marc Rodriguez MD Primary Care Provider [phone] Encounter Details Date Type Department Care Team (Late st Contact Info) Description 12/12/2015 External CPT II ZIGZAG TUNNEL ELASTIC OPERATOR - [facility] Social History Tobacco [...] & CRITICAL CARE MEDICINE [address] [place] [address] 06/26/2025 10:00 AM EST Office Visit [facility] PULMONARY & CRITICAL CARE MEDICINE [address] [place] [address] Kaitlin Joiner APRN [address] [place] [address] 09/12/2025 10:00 AM EST Office Visit [facility] CARDIOLOGY [address] [facility] [address] [place] [address] Jimmy Duncan MD [address] [facility] [address] [place] [address] documented as of this encounter Visit Diagnoses [...] documented as of this encounter Care Teams Football Coach Relationship Specialty Start Date End Date Marc Rodriguez MD [address] [facility] [address] [place] [address] PCP - General Adolescent Medicine 12/08/16 documented as of this encounter
--- OUTSIDE RECORDS SUMMARY | 2025-04-21 14:03 | XMS_ITS | Encounter Summary ---
Author Organization [facility] Address [address] [place] [address] Care Team Providers Care Oyster Shipper Name Role Phone Marc Rodriguez MD Primary Care Provider [phone] Edgardo Zuñiga MD Unavailable [phone] Giulia Briggs Unavailable [phone] Edgardo Zuñiga MD Unavailable [phone] Esther Mathew Unavailable [phone] Encounter Details Date Type Department Care Team (Late st Contact Info) Description 03/07/2025 Orders Only [facility] [address] 1st [place] [address] Edgardo Zuñiga MD [address] [place] [address] S/P lumbar fusion (Primary Dx) [...] the past 12 months has th e [employer], gas, oil, or water [employer] threatened to shut off services in your [...] [facility] at [facility] [address] [place] [address] Suzan Galindo DO [address] [place] [address] 03/07/2026 9:20 AM EDT Office Visit [facility] Orthopaedic Surgery & Sports Medicine [address] 1[address] [place] [address] Edgardo Zuñiga MD [address] [place] [address] documented as of this encounter [...] documented as of this encounter Care Teams Oyster Shipper Relationship Specialty Start Date End Date Marc Rodriguez MD [address] [place] [address] PCP - General 12/14/20 Edgardo Zuñiga MD [address] [place] [address] Surgeon Neurosurgery 03/04/21 Giulia Briggs PA [address] [place] [address] Physician Water Taxi Captain Neurosurgery 07/03/21 Edgardo Zuñiga MD [address] [place] [address] Surgeon Neurosurgery 09/16/21 Esther Mathew PA [address] [place] [address] Physician Water Taxi Captain Neurology 11/19/22 documented as of this encounter
--- OUTSIDE RECORDS SUMMARY | 2025-04-21 14:03 | XMS_ITS | Encounter Summary ---
Author Organization Healthcare Address [address] [place] [address] Care Team Providers Care Flight Information Expediter Name Role Phone Marc Rodriguez MD Primary Care Provider [phone] Edgardo Zuñiga MD Unavailable [phone] Giulia Briggs Unavailable [phone] Edgardo Zuñiga MD Unavailable [phone] Esther Mathew Unavailable [phone] Reason for Visit * Reason Onset Date Comments Med Refill 03/10/2025 Encounter Details Date Type Department Care Team (Late st Contact Info) Description 03/10/2025 Refill Physical Medicine & Rehabilitation Clinic at [facility] [address] [place] [address] Suzan Galindo DO [address] [facility] [address] [place] [address] Social History Tobacco Use Types [...] [facility] at [facility] [address] [place] [address] Ryan LauraSuzan mattDO [address] [place] [address] 03/07/2026 9:20 AM EDT Office Visit [place] [facility] [address] 1[address] [place] [address] Edgardo Zuñiga MD [address] [place] [address] documented as of this encounter [...] documented as of this encounter Care Teams Flight Information Expediter Relationship Specialty Start Date End Date Marc Rodriguez MD [address] [place] [address] PCP - General 12/14/20 Edgardo Zuñiga MD [address] [place] [address] Surgeon Neurosurgery 03/04/21 Giulia Briggs PA [address] [place] [address] Physician Attorney General Neurosurgery 07/03/21 Edgardo Zuñiga MD [address] [place] [address] Surgeon Neurosurgery 09/16/21 Esther Mathew PA [address] [place] [address] Physician Attorney General Neurology 11/19/22 documented as of this encounter
--- OUTSIDE RECORDS SUMMARY | 2025-04-21 14:03 | XMS_ITS | Encounter Summary ---
Author Organization Healthcare Address [address] [place] [address] Care Team Providers Care Secondary Special Education Teacher Name Role Phone Marc Rodriguez MD Primary Care Provider [phone] Edgardo Zuñiga MD Unavailable [phone] Giulia Briggs Unavailable [phone] Edgardo Zuñiga MD Unavailable [phone] Esther Mathew Unavailable [phone] Reason for Visit * Reason Onset Date Comments HCN Clinical Concern/Question 04/07/2025 Encounter Details Date Type Department Care Team (Late st Contact Info) Description 04/07/2025 Telephone Physical Medicine & Rehabilitation Clinic at [facility] [address] [place] [address] Suzan Galindo DO [address] [facility] [address] [place] [address] HCN Clinical Concern/Question Social History [...] place to sleep or slept in a custodial (including now)? No 05/13/2024 PHQ-9 Answer Date [...] received her lab results Best contact number: [phone] (mobile) Optimal time of day to reach caller: ANYTIME Additional comments/information from caller: None Note: Please do not reply to this message. Follow-up communication and further actions as a result of this message need to be communicated with the patient directly, if the patient is not active onMyChart. If the patient is active on MyChart, they will receive notification of the communication/outcome via [employer]. documented in this encounter Plan of Treatment Upcoming Encounters Date Type Department Care Team (Late st Contact Info) Description 09/11/2025 11:50 AM EST Office Visit [place] [facility] at [facility] [address] [place] [address] Suzan Galindo DO [address] [facility] [address] [place] [address] 03/07/2026 9:20 AM EDT Office Visit [place] [facility] [address] 1[address] [place] [address] Edgardo Zuñiga MD [address] [place] [address] documented as of this encounter [...] as of this encounter Care Teams Secondary Special Education Teacher Relationship Specialty Start Date End Date Marc Rodriguez MD [address] [place] [address] PCP - General 12/14/20 Edgardo Zuñiga MD [address] [place] [address] Surgeon Neurosurgery 03/04/21 Giulia Briggs PA [address] [place] [address] Physician Software Engineer Kernel Neurosurgery 07/03/21 Edgardo Zuñiga MD [address] [place] [address] Surgeon Neurosurgery 09/16/21 Esther Mathew PA [address] [place] [address] Physician Software Engineer Kernel Neurology 11/19/22 documented as of this encounter
--- OUTSIDE RECORDS SUMMARY | 2025-04-21 14:03 | XMS_ITS | Encounter Summary ---
Author Organization [facility] Address [address] [place] [address] Care Team Providers Care Office Administration Instructor Name Role Phone Marc Rodriguez MD Primary Care Provider [phone] Edgardo Zuñiga MD Unavailable [phone] Giulia Briggs Unavailable [phone] Edgardo Zuñiga MD Unavailable [phone] Esther Mathew Unavailable [phone] Encounter Details Date Type Department Care Team [...] No Risk Indicated 03/09/2025 1:23 PM EDT Nubia Gulshan Ledezma * How difficult have these problems made [...] & Rehabilitation Clinic at [facility] [address] [place] [address] Suzan Galindo DO [address] [place] [address] 03/07/2026 9:20 AM EDT Office Visit [place] [facility] [address], 1st [address] [place] [address] Edgardo Zuñiga MD [address] [place] [address] documented as of this encounter [...] documented as of this encounter Care Teams Office Administration Instructor Relationship Specialty Start Date End Date Marc Rodriguez MD [address] [place], [place] [address] PCP - General 12/14/20 Edgardo Zuñiga MD [address] [place] [address] Surgeon Neurosurgery 03/04/21 Giulia Briggs PA [address] [place] [address] Physician Lumber Sorter Neurosurgery 07/03/21 Edgardo Zuñiga MD [address] [place] [address] Surgeon Neurosurgery 09/16/21 Esther Mathew PA [address] [place] [address] Physician Lumber Sorter Neurology 11/19/22 documented as of this encounter
--- OUTSIDE RECORDS SUMMARY | 2025-04-21 14:03 | XMS_ITS | Encounter Summary ---
Author Organization Healthcare Address [address] [place] [address] Care Team Providers Care Gang Pusher Name Role Phone Marc Rodriguez MD Primary Care Provider [phone] Edgardo Zuñiga MD Unavailable [phone] Giulia Briggs Unavailable [phone] Edgardo Zuñiga MD Unavailable [phone] Esther Mathew Unavailable [phone] Reason for Visit * Reason Comments Med Refill Encounter Details Date Type Department Care Team (Late st Contact Info) Description 04/17/2025 Refill [place] [facility] [address], 1[address] [place] [address] Esther Mathew PA [address] [place] [address] Social History Tobacco Use Types [...] the past 12 months has th e [employer], gas, oil, or water [employer] threatened to shut off services in your [...] Clinic at [facility] [address] [place] [address] Suzan Galindo, [address] [place] [address] 03/07/2026 9:20 AM EDT Office Visit [facility] Surgery [facility] Medicine [address], 1st [address] [place] [address] Edgardo Zuñiga MD [address] [place] [address] documented as of this encounter [...] documented as of this encounter Care Teams Gang Pusher Relationship Specialty Start Date End Date Marc Rodriguez MD [address] [place] [address] PCP - General 12/14/20 Edgardo Zuñiga MD [address] [place] [address] Surgeon Neurosurgery 03/04/21 Giulia Briggs PA [address] [place] [address] Physician Fish Pitcher Neurosurgery 07/03/21 Edgardo Zuñiga MD [address] [place] [address] Surgeon Neurosurgery 09/16/21 Esther Mathew PA [address] [place] [address] Physician Fish Pitcher Neurology 11/19/22 documented as of this encounter
--- OUTSIDE RECORDS SUMMARY | 2025-04-21 14:03 | XMS_ITS | Encounter Summary ---
Author Organization Healthcare Address [address] [place] [address] Care Team Providers Care Crawler Crane Operator Name Role Phone Marc Rodriguez MD Primary Care Provider [phone] Edgardo Zuñiga MD Unavailable [phone] Giulia Briggs Unavailable [phone] Edgardo Zuñiga MD Unavailable [phone] Esther Mathew Unavailable [phone] Encounter Details Date Type Department Care Team (Late st Contact Info) Description 03/10/2025 Results Follow-Up Physical Medicine & Rehabilitation Clinic at [facility] [address] [place] [address] Suzan Galindo DO [address] [facility] [address] [place] [address] Social History Tobacco Use Types [...] the past 12 months has th e [employer], gas, oil, or water [employer] threatened to shut off services in your [...] [facility] at [facility] [address] [place] [address] Suzan Galindo DO [address] [place] [address] 03/07/2026 9:20 AM EDT Office Visit [facility] Orth[facility] Surgery [facility] Medicine [address] 1st [address] [place] [address] Edgardo Zuñiga MD [address] [place] [address] documented as of this encounter [...] documented as of this encounter Care Teams Crawler Crane Operator Relationship Specialty Start Date End Date Marc Rodriguez MD [address] [place], [place] [address] PCP - General 12/14/20 Edgardo Zuñiga MD [address] [place] [address] Surgeon Neurosurgery 03/04/21 Giulia Briggs PA [address] [place] [address] Physician Cartridge Maker Neurosurgery 07/03/21 Edgardo Zuñiga MD [address] [place] [address] Surgeon Neurosurgery 09/16/21 Esther Mathew PA [address] [place] [address] Physician Cartridge Maker Neurology 11/19/22 documented as of this encounter
--- OUTSIDE RECORDS SUMMARY | 2025-04-21 14:03 | XMS_ITS | Encounter Summary ---
Author Organization [facility] Address [address] [place] [address] Care Team Providers Care Internet Manager Name Role Phone Marc Rodriguez MD Primary Care Provider [phone] Encounter Details Date Type Department Care Team (Late st Contact Info) Description 02/10/2025 Telephone [facility] CARDIOLOGY [address] [facility] [address], [place] [address] Jimmy Duncan MD [address] [facility] [address] [place] [address] Social History Tobacco Use Types Packs/Day Years [...] PULMONARY & CRITICAL CARE MEDICINE [address] [place] [address] 06/26/2025 10:00 AM EST Office Visit [facility] PULMONARY & CRITICAL CARE MEDICINE [address] [place] [address] Kaitlin Joiner, OVERHEAD DOOR TECHNICIAN [address] [place] [address] 09/12/2025 10:00 AM EST Office Visit [facility] CARDIOLOGY [address] [facility] [address] [place] [address] Jimmy Duncan MD [address] [facility] [address] [place] [address] documented as of this encounter Visit Diagnoses Not on filedocumented in this encounter Care Teams Internet Manager Relationship Specialty Start Date End Date Marc Rodriguez MD [address] [facility] [address] [facility] [address] [place] [address] PCP - General Adolescent Medicine 12/08/16 documented as of this encounter
--- OUTSIDE RECORDS SUMMARY | 2025-04-21 14:03 | XMS_ITS | Encounter Summary ---
[facility] Address [address] [place] [address] Care Team Providers Care Certified Neurodiagnostic Technologist Name Role Phone Marc Rodriguez MD Primary Care Provider [phone] Encounter Details Date Type Department Care Team (Late st Contact Info) Description 03/06/2025 Telephone [facility] CARDIOLOGY [address] [facility] [address] [address] Jimmy Duncan MD [address] [facility] [address] [place] [address] Social History Tobacco Use Types Packs/Day Years [...] 03/06/2025 3:21 PM EDT Faxed orders to [phone] * Telephone Encounter - Keke Aguilar RegSched Rep - 03/06/2025 1:22 PM EDT Caller: Sandie Frank Relationship: Self Best call back number: . Telephone Information: What orders are you requesting (i.e. lab or imaging): LAB ORDERS In what timeframe would the patient need to come in: ASHLEY Where will you receive your lab/imaging services: [facility] Additional notes: PT ASKED IF OFFICE WILL PLEASE FAX LAB ORDERS TO [facility]. PT DOESN'T HAVE FAX NUMBER. documented in this encounter Plan of Treatment Upcoming Encounters Date Type Department Care Team (Late st Contact Info) Description 06/26/2025 9:30 AM EST Procedure visit [facility] PULMONARY & CRITICAL CARE MEDICINE [address] [facility] [place] [address] 06/26/2025 10:00 AM EST Office Visit [facility] PULMONARY & CRITICAL CARE MEDICINE [address] [facility] [place] [address] Kaitlin Joiner APRN [address] [place] [address] 09/12/2025 10:00 AM EST Office Visit [facility] CARDIOLOGY [address] [facility] [address] [place] [address] Jimmy Duncan MD [address] [facility] [address] [place] [address] Scheduled Orders Name Type Priority Associated Diagnoses [...] hypertension documented in this encounter Care Teams Certified Neurodiagnostic Technologist Relationship Specialty Start Date End Date Marc Rodriguez MD [address] [facility] [address] [place] [address] PCP - General Adolescent Medicine 12/08/16 documented as of this encounter
--- OUTSIDE RECORDS SUMMARY | 2025-04-21 14:03 | XMS_ITS | Encounter Summary ---
Author Organization [facility] Address [address] [place] [address] Care Team Providers Care Brick Kiln Burner Name Role Phone Marc Rodriguez MD Primary Care Provider [phone] Encounter Details Date Type Department Care Team (Late st Contact Info) Description 07/15/2019 External CPT II VISITOR INFORMATION ASSISTANT - [employer] Social History Tobacco [...] PULMONARY & CRITICAL CARE MEDICINE [address] [place] [address] 06/26/2025 10:00 AM EST Office Visit [facility] PULMONARY & CRITICAL CARE MEDICINE [address] [place] [address] Kaitlin Joiner, TORI [address] [place] [address] 09/12/2025 10:00 AM EST Office Visit [facility] CARDIOLOGY [address] [facility] [address] [place] [address] Jimmy Duncan MD [address] [facility] [address] [place] [address] documented as of this encounter Visit Diagnoses [...] documented as of this encounter Care Teams Brick Kiln Burner Relationship Specialty Start Date End Date Marc Rodriguez MD [address] [facility] [address] [facility] [place] [address] PCP - General Adolescent Medicine 12/08/16 documented as of this encounter
--- OUTSIDE RECORDS SUMMARY | 2025-04-21 14:03 | XMS_ITS | Clinical Summary ---
Author Organization [facility] Address [address] [place] [address] Care Team Providers Care Train Starter Name Role Phone Marc Rodriguez MD Primary Care Provider [phone] Allergies Active Allergy Reactions Criticality Noted Date [...] reassessed in 6 months. Discussed with patient [employer] and [place] provide detailed guidelines for accurate [...] (08/27/2021): Added automatically from request for surgery [id number] Lumbosacral radiculopathy at L5 04/22/2021 Overview (08/27/2021): Added automatically from request for surgery [id number] Chronic bilateral low back pain with bilateral s ciatica 04/22/2021 Overview (08/27/2021): Added automatically from request for surgery [id number] Spinal stenosis, lumbar clara on without neurogenic claudication 04/22/2021 Overview (08/27/2021): Added automatically from request for surgery [id number] Environmental and seasonal allergies 11/12/2020 Restless legs syndrome 11/12/2020 Adrenal insufficiency 02/22/2019 Overview (02/22/2019): chronic steroids - Cortef Rheumatoid arthritis 08/31/2018 Fibromyalgia 08/31/2018 Chronic cough 12/24/2017 Severe persistent asthma without complication Chronic allergic rhinitis 12/24/2017 Gastroesophageal reflux disease 12/24/2017 Encounters Date Type Department Care Team Description 03/13/2025 9:45 AM EDT Office Visit [facility] CARDIOLOGY [address] [place] [address] [address] [address] Jimmy Duncan MD Primary hypertension (Primary Dx); Hyperlipidemia LDL goal <100; Chronic venous insufficiency of lower extremity 03/13/2025 Patient rounding ([facility] only) [facility] CARDIOLOGY [address] [place] [address] [address] [place] [address] Jimmy Duncan MD 03/13/2025 Travel 03/07/2025 Telephone [facility] CARDIOLOGY [address] [facility] [address] [place] [address] QAZI - LAB ORDERS 03/06/2025 Telephone [facility] CARDIOLOGY [address] [facility] [address] [place] [address] Jimmy Duncan MD 02/10/2025 Telephone [facility] CARDIOLOGY [address] [facility] [address] [place] [address] Jimmy Duncan MD Med Refill 02/10/2025 Telephone [facility] CARDIOLOGY [address] [facility] [address] [place] [address] Jimmy Duncan MD 02/10/2025 Telephone [facility] CARDIOLOGY [address] [facility] [address] [place] [address] QAZI - SCHEDULING [...] CENTER PULMONARY & CRITICAL CARE MEDICINE [address] [place] [address] 06/26/2025 10:00 AM EST Office Visit [facility] PULMONARY & CRITICAL CARE MEDICINE [address] [place] [address] Kaitlin Joiner, COOKING TEACHER [address] [place] [address] 09/12/2025 10:00 AM EST Office Visit [facility] CARDIOLOGY [address] [facility] [address] [address] Jimmy Duncan MD [address] [facility] [address] [place] [address] Health Maintenance Due Date Last Done Comments ANNUAL WELLNESS VISIT 12/08/2020 12/09/2019 , 11/26/2018, 12/12/2015 DXA SCAN 02/07/2021 02/07/2019, 04/07/2017 MAMMOGRAM 04/29/2021 04/29/2019, 09/04, 09/26/2015 INFLUENZA VACCINE 03/03/2025 07/13/2024, , 06/07/2022, Additional history exists LIPID PANEL 03/25/2025 03/25/2024, 03/04, 05/10/2019, Additional history exists COVID-19 Vaccine (2024-09 6 season) 2025 07/15/2023, 04/30/2022, 12/19/2021, Additional history exists TDAP/TD VACCINES (4 - [...] not included. Cardiology Follow-Up Note Name: Sandie rFank : 1955 PCP: Marc Rodriguez MD Date: 03/13/2025 Department: [facility] CARDIOLOGY [address] [facility] [address] [facility] [address] Chief Complaint Patient presents with Hypertension Hyperlipidemia [...] Procedure Laterality Date APPENDECTOMY 1973 BREAST BIOPSY [id number] multiple CARDIAC CATHETERIZATION 03/13/2009 AE @ [facility]- [...] reassessed in 6 months. Discussed with patient [employer] and [employer] provide detailed guidelines for accurate blood [...] any significant symptoms or [facility] if [facility]. Jimmy Duncan MD, FACC,[facility]. [place] [facility] Part of this note may be an electronic style advisor/translation of spokenlanguage to printed text using the [employer] Dictation System. Jimmy Duncan MD ECG ORDERABLES Final Result * LABS SCANNED (03/08/2025) Only the most recent of3 resultswithin the time period is included. Jimmy Duncan MD LAB BLOOD ORDERABLES Final Resu lt from [place] [address] [place] [id number] MEDICARE A & [facility] PPO Care Teams Train Starter Relationship Specialty Start Date End Date Marc Rodriguez MD [address] [facility] [address] [place] [address] PCP - General Adolescent Medicine 12/08/16
--- OUTSIDE RECORDS SUMMARY | 2025-04-21 14:03 | XMS_ITS | Encounter Summary ---
[facility] Address [address] [place] [address] Care Team Providers Care Television News Video Editor Name Role Phone Marc Rodriguez MD Primary Care Provider [phone] Encounter Details Date Type Department Care Team (Late st Contact Info) Description 10/16/2015 External CPT II SKIVER MACHINE OPERATOR - [employer] Social History [...] PULMONARY & CRITICAL CARE MEDICINE [address] [place] [address] 06/26/2025 10:00 AM EST Office Visit [facility] PULMONARY & CRITICAL CARE MEDICINE [address] [place] [address] Kaitlin Joiner, BEEF SPECIALIST [address] [place] [address] 09/12/2025 10:00 AM EST Office Visit [facility]IOLOGY [address] [facility] [address] [facility] [address] [place] [address] Jimmy Duncan MD [address] [facility] [address] [place] [address] documented as of this encounter Visit Diagnoses [...] documented as of this encounter Care Teams Television News Video Editor Relationship Specialty Start Date End Date Marc Rodriguez MD [address] [facility] [address] [place] [address] PCP - General Adolescent Medicine 12/08/16 documented as of this encounter
--- OUTSIDE RECORDS SUMMARY | 2025-04-21 14:03 | XMS_ITS | Encounter Summary ---
Author Organization Healthcare Address [address] [place] [address] Care Team Providers Care Tire Stripper Name Role Phone Marc Rodriguez MD Primary Care Provider [phone] Edgardo Zuñiga MD Unavailable [phone] Giulia Briggs Unavailable [phone] Edgardo Zuñiga MD Unavailable [phone] Esther Mathew Unavailable [phone] Reason for Visit * Reason Comments Med Refill Encounter Details Date Type Department Care Team (Late st Contact Info) Description 02/28/2025 Refill [place] [facility] [address], 1st [place] [address] Esther Mathew PA [address] [place] [address] Social History Tobacco Use Types [...] the past 12 months has th e [employer], gas, oil, or water [employer] threatened to shut off services in your [...] Visit [facility] [address] [place] [address] Suzan Galindo DO [address] [place] [address] 03/07/2026 9:20 AM EDT Office Visit [facility] Orthopaedic Surgery & Sports Medicine [address], 1[address] Floor [address] [place] [address] Edgardo Zuñiga MD [address] [facility] [address] [place] [address] documented as of this encounter [...] as of this encounter Care Teams Tire Stripper Relationship Specialty Start Date End Date Marc Rodriguez MD [address] [place] [address] PCP - General 12/14/20 Edgardo Zuñiga MD [address] [place] [address] Surgeon Neurosurgery 03/04/21 Giulia Briggs PA [address] [place] [address] Physician Chinese Teacher Neurosurgery 07/03/21 Edgardo Zuñiga MD [address] [place] [address] Surgeon Neurosurgery 09/16/21 Etsher Mathew PA [address] [place] [address] Physician Chinese Teacher Neurology 11/19/22 documented as of this encounter
--- OUTSIDE RECORDS SUMMARY | 2025-04-21 14:03 | XMS_ITS | Encounter Summary ---
[facility] Address [address] [place] [address] Care Team Providers Care Lockstitch Topstitcher Name Role Phone Marc Rodriguez MD Primary Care Provider Encounter Details Date Type Department Care Team (Late st Contact Info) Description 09/19/2015 External CPT II DATA ENTRY PROCESSOR - [facility] Social History Tobacco Use [...] Description 06/26/2025 9:30 AM EST Procedure visit [facility] PULMONARY & CRITICAL CARE MEDICINE [address] [place] [address] 06/26/2025 10:00 AM EST Office Visit [facility] PULMONARY & CRITICAL CARE MEDICINE [address] [place] [address] Kaitlin Joiner, AUTOCAD DRAFTSMAN [address] [place] [address] 09/12/2025 10:00 AM EST Office Visit [facility]OLOGY [address] [facility] [address] [place] [address] Jimmy Duncan MD 3000 [facility] [address] [place] [address] documented as of this encounter Visit Diagnoses [...] documented as of this encounter Care Teams Lockstitch Topstitcher Relationship Specialty Start Date End Date Marc Rodriguez MD 1210 [facility] [address] [place] [address] PCP - General Adolescent Medicine 12/08/16 documented as of this encounter
--- OUTSIDE RECORDS SUMMARY | 2025-04-21 14:03 | XMS_ITS | Encounter Summary ---
Author Organization Healthcare Address [address] [place] [address] Care Team Providers Care Plant Technician Name Role Phone Marc Rodriguez MD Primary Care Provider [phone] Edgardo Zuñiga MD Unavailable [phone] Giulia Briggs Unavailable [phone] Edgardo Zuñiga MD Unavailable [phone] Esther Mathew Unavailable [phone] Encounter Details Date Type Department Care Team (Late st Contact Info) Description 03/10/2025 Orders Only [facility] at [facility] [address] [place] [address] Suzan Galindo DO [address] [place] [address] Social History Tobacco Use Types [...] the past 12 months has th e [employer], gas, oil, or water company threatened to [...] [facility] [address] [place] [address] Ryan LauraSuzan matt, DO [address] [place] [address] 03/07/2026 9:20 AM EDT Office Visit [facility] Orthopaedic Surgery & Sports Medicine [address], 1st [address] [place] [address] Edgardo Zuñiga MD [address] [place] [address] documented as of this encounter [...] documented as of this encounter Care Teams Plant Technician Relationship Specialty Start Date End Date Marc Rodriguez MD 1210 [facility] [address] [place] [address] PCP - General 12/14/20 Edgardo Zuñiga MD [address] [place] [address] Surgeon Neurosurgery 03/04/21 Giulia Briggs PA [address] [place] [address] Physician Epic Beacon Analyst Neurosurgery 07/03/21 Edgardo Zuñiga MD [address] [place] [address] Surgeon Neurosurgery 09/16/21 Esther Mathew PA [address] [address] Physician Epic Beacon Analyst Neurology 11/19/22 documented as of this encounter
--- OUTSIDE RECORDS SUMMARY | 2025-04-21 14:03 | XMS_ITS | Encounter Summary ---
Author Organization [facility] Address [address] [place] [address] Care Team Providers Care Track Maintainer Name Role Phone Marc Rodriguez MD Primary Care Provider [phone] Encounter Details Date Type Department Care Team (Late st Contact Info) Description 12/03/2015 External CPT II CUSTOMER RELATIONS SPECIALIST - [facility] Social History Tobacco Use [...] & CRITICAL CARE MEDICINE [address] [place] [address] 06/26/2025 10:00 AM EST Office Visit [facility] PULMONARY & CRITICAL CARE MEDICINE [address] [place] [address] Kaitlin Joiner APRN [address] [place] [address] 09/12/2025 10:00 AM EST Office Visit [facility] CARDIOLOGY [address] [facility] [address] [place] [address] Jimmy Duncan MD 3000 [facility] [address] [place] [address] documented as of this encounter Visit Diagnoses [...] documented as of this encounter Care Teams Track Maintainer Relationship Specialty Start Date End Date Marc Rodriguez MD 1210 [facility] [address] [place] [address] PCP - General Adolescent Medicine 12/08/16 documented as of this encounter
--- OUTSIDE RECORDS SUMMARY | 2025-04-21 14:03 | XMS_ITS | Encounter Summary ---
Author Organization [facility] Address [address] [place] [address] Care Team Providers Care Senior Cytotechnologist Name Role Phone Marc Rodriguez MD Primary Care Provider [phone] Encounter Details Date Type Department Care Team (Late st Contact Info) Description 12/14/2018 External CPT II PROGRAM DEVELOPER - [facility] Social History Tobacco [...] PULMONARY & CRITICAL CARE MEDICINE [address] [place] [address] 06/26/2025 10:00 AM EST Office Visit [facility] PULMONARY & CRITICAL CARE MEDICINE [address] [place] [address] Kaitlin Joiner, BANKING MANAGER [address] [place] [address] 09/12/2025 10:00 AM EST Office Visit [facility] CARDIOLOGY [address] [facility] [address] [place] [address] Jimmy Duncan MD 3000 [facility] [address] [place] [address] documented as of this encounter Visit Diagnoses [...] as of this encounter Care Teams Senior Cytotechnologist Relationship Specialty Start Date End Date Marc Rodriguez MD 1210 [facility] [address] [facility] [place] [address] PCP - General Adolescent Medicine 12/08/16 documented as of this encounter
--- OUTSIDE RECORDS SUMMARY | 2025-04-21 14:03 | XMS_ITS | Encounter Summary ---
Author Organization Healthcare Address [address] [place] [address] Care Team Providers Care Production Control Supervisor Name Role Phone Marc Rodriguez MD Primary Care Provider [phone] Edgardo Zuñiga MD Unavailable [phone] Giulia Briggs Unavailable [phone] Edgardo Zuñiga MD Unavailable [phone] Esther Mathew Unavailable [phone] Encounter Details Date Type Department Care Team (Late st Contact Info) Description 12/16/2023 Orders Only External Location [address] [place] [address] Provider, External Social History Tobacco Use Types [...] [facility] at [facility] [address] [place] [address] Suzan Galindo DO [address] [place] [address] 03/07/2026 9:20 AM EDT Office Visit [facility] Orthopaedic Surgery & Sports Medicine [address], 1st [address] [place] [address] Edgardo Zuñiga MD [address] [facility] [address] [place] [address] documented as of this encounter [...] documented as of this encounter Care Teams Production Control Supervisor Relationship Specialty Start Date End Date Marc Rodriguez MD [address] [place] [address] PCP - General 12/14/20 Edgardo Zuñiga MD [address] [place] [address] Surgeon Neurosurgery 03/04/21 Giulia Briggs PA [address] [place] [address] Physician Licensed Massage Practitioner Neurosurgery 07/03/21 Edgardo Zuñiga MD [address] [place] [address] Surgeon Neurosurgery 09/16/21 Esther Mathew PA [address] [place] [address] Physician Licensed Massage Practitioner Neurology 11/19/22 documented as of this encounter
--- OUTSIDE RECORDS SUMMARY | 2025-04-21 14:03 | XMS_ITS | Encounter Summary ---
Author Organization [facility] Address [address] [place] [address] Care Team Providers Care Insecticide Sprayer Name Role Phone Marc Rodriguez MD Primary Care Provider [phone] Encounter Details Date Type Department Care Team (Late st Contact Info) Description 05/17/2019 External CPT II CLEANER CARPET AND UPHOLSTERY - [facility] Social History Tobacco Use [...] Description 06/26/2025 9:30 AM EST Procedure visit [facility] PULMONARY & CRITICAL CARE MEDICINE [address] [place] [address] 06/26/2025 10:00 AM EST Office Visit [facility] PULMONARY & CRITICAL CARE MEDICINE [address] [place] [address] Kaitlin Joiner, TORI [address] [place] [address] 09/12/2025 10:00 AM EST Office Visit [facility] CARDIOLOGY [address] [facility] [address] [place] [address] Jimmy Duncan MD [address] [facility] [address] [place] [address] documented as of this encounter Visit Diagnoses [...] documented as of this encounter Care Teams Insecticide Sprayer Relationship Specialty Start Date End Date Marc Rodriguez MD 1210 [facility] [address] [facility] [place] [address] PCP - General Adolescent Medicine 12/08/16 documented as of this encounter
--- OUTSIDE RECORDS SUMMARY | 2025-04-21 14:03 | XMS_ITS | Encounter Summary ---
Author Organization [facility] Address [address] [place] [address] Care Team Providers Care Jewel Cupping Machine Operator Name Role Phone aMrc Rodriguez MD Primary Care Provider [phone] Encounter Details Date Type Department Care Team (Late st Contact Info) Description 06/18/2016 External CPT II IMMIGRATION PARALEGAL - [facility] Social History Tobacco Use [...] & CRITICAL CARE MEDICINE [address] [place] [address] 06/26/2025 10:00 AM EST Office Visit [facility] PULMONARY & CRITICAL CARE MEDICINE [address] [place] [address] Kaitlin Joiner APRN [address] [place] [address] 09/12/2025 10:00 AM EST Office Visit [facility] CARDIOLOGY [address] [facility] [address] [place] [address] Jimmy Duncan MD 3000 [facility] [address] [place] [address] documented as of this encounter Visit Diagnoses [...] documented as of this encounter Care Teams Jewel Cupping Machine Operator Relationship Specialty Start Date End Date Marc Rodriguez MD 1210 [facility] [address] [place] [address] PCP - General Adolescent Medicine 12/08/16 documented as of this encounter
--- OUTSIDE RECORDS SUMMARY | 2025-04-21 14:04 | XMS_ITS | Encounter Summary ---
Author Organization [facility] Address [address] [place] [address] Care Team Providers Care Supervisor Inventory Merchandising Name Role Phone Marc Rodriguez MD Primary Care Provider [phone] Encounter Details Date Type Department Care Team (Late st Contact Info) Description 03/13/2025 Patient rounding ([facility] only) [facility] CARDIOLOGY [address] [facility] [address] [address] Jimmy Duncan MD 3000 [facility] [address] [place] [address] Social History Tobacco Use Types Packs/Day Years [...] is Pat Davis, and I am the Senior Account Clerk for [facility] Cardiology Levels. I would like to thank you for choosing us to be your main line assembler. If you do not mind, I would [...] with your visit with us at a [facility]? Over the next few days, you will be receiving a Patient Experience Survey. Please consider taking the survey, as it helps [employer] in improving their patient care. Thank you [...] HOSPITAL PULMONARY & CRITICAL CARE MEDICINE [address] [place] [address] 06/26/2025 10:00 AM EST Office Visit [facility] PULMONARY & CRITICAL CARE MEDICINE [address] [place] [address] Kaitlin Joiner APRN [address] [place] [address] 09/12/2025 10:00 AM EST Office [facility] CARDIOLOGY [address] [facility] [address] [phone] Jimmy Duncan MD 3000 [facility] [address] [place] [address] documented as of this encounter Visit Diagnoses Not on filedocumented in this encounter Care Teams Supervisor Inventory Merchandising Relationship Specialty Start Date End Date Marc Rodriguez MD 1210 [facility] [address] [facility] [address] [place] [address] PCP - General Adolescent Medicine 12/08/16 documented as of this encounter
--- OUTSIDE RECORDS SUMMARY | 2025-04-21 14:04 | XMS_ITS | Encounter Summary ---
[facility] Organization [facility] Address [address] [place] [address] Care Team Providers Care Senior Director Marketing Name Role Phone Marc Rodriguez MD Primary Care Provider [phone] Encounter Details Date Type Department Care Team (Late st Contact Info) Description 10/12/2014 External CPT II GRIP ASSEMBLER - [facility] Social History Tobacco Use [...] PULMONARY & CRITICAL CARE MEDICINE [address] [place] [address] 06/26/2025 10:00 AM EST Office Visit [facility] PULMONARY & CRITICAL CARE MEDICINE [address] [place] [address] Kaitlin Joiner, MANAGER FINANCIAL PLANNING [address] [place] [address] 09/12/2025 10:00 AM EST Office Visit [facility]IOLOGY [address] [facility] [address] [place] [address] Jimmy Duncan MD 3000 [facility] [address] [place] [address] documented as of this encounter Visit Diagnoses [...] as of this encounter Care Teams Senior Director Marketing Relationship Specialty Start Date End Date Marc Rodriguez MD 1210 [facility] [address] [place] [address] PCP - General Adolescent Medicine 12/08/16 documented as of this encounter
--- OUTSIDE RECORDS SUMMARY | 2025-04-21 14:04 | XMS_ITS | Encounter Summary ---
[facility] Address [address] [place] [address] Care Team Providers Care Mineral Economist Name Role Phone Marc Rodriguez MD Primary Care Provider [phone] Encounter Details Date Type Department Care Team (Late st Contact Info) Description 10/10/2014 External CPT II VACATION PLANNER - [facility] Social History Tobacco Use [...] PULMONARY & CRITICAL CARE MEDICINE [address] [place] [address] 06/26/2025 10:00 AM EST Office Visit [facility] PULMONARY & CRITICAL CARE MEDICINE [address] [place] [address] Kaitlin Joiner, COMPANY TANKER TRUCK DRIVER [address] [place] [address] 09/12/2025 10:00 AM EST Office Visit [facility]IOLOG[facility] [address] [facility] [address] [place] [address] Jimmy Duncan MD 3000 [facility] [address] [place] [address] documented as of this encounter Visit Diagnoses [...] documented as of this encounter Care Teams Mineral Economist Relationship Specialty Start Date End Date Marc Rodriguez MD 1210 [facility] [address] [place] [address] PCP - General Adolescent Medicine 12/08/16 documented as of this encounter
--- OUTSIDE RECORDS SUMMARY | 2025-04-21 14:04 | XMS_ITS | Encounter Summary ---
Author Organization [facility] Address [address] [place] [address] Care Team Providers Care Console Operator Name Role Phone Marc Rodriguez MD Primary Care Provider [phone] Encounter Details Date Type Department Care Team (Late st Contact Info) Description 11/13/2014 External CPT II POLYSOMNOGRAPH TECH - [facility] Social History Tobacco Use [...] PULMONARY & CRITICAL CARE MEDICINE [address] [place] [address] 06/26/2025 10:00 AM EST Office Visit [facility] PULMONARY & CRITICAL CARE MEDICINE [address] [place] [address] Kaitlin Joiner, BULLDOZER/LOADER/COMPACTOR/SCRAPER [address] [place] [address] 09/12/2025 10:00 AM EST Office Visit [facility]ARDIOLOGY [address] [facility] [address] [place] [address] Jimmy Duncan MD 3000 [facility] [address] [place] [address] documented as of this encounter Visit Diagnoses [...] documented as of this encounter Care Teams Console Operator Relationship Specialty Start Date End Date Marc Rodriguez MD 1210 [facility] [address] [place] [address] PCP - General Adolescent Medicine 12/08/16 documented as of this encounter
--- OUTSIDE RECORDS SUMMARY | 2025-04-21 14:04 | XMS_ITS | Encounter Summary ---
Author Organization Healthcare Address [address] [place] [address] Care Team Providers Care Rehab Therapist Name Role Phone Marc Rodriguez MD Primary Care Provider [phone] Edgardo Zuñiga MD Unavailable [phone] Giulia Briggs Unavailable [phone] Edgardo Zuñiga MD Unavailable [phone] Esther Mathew Unavailable [phone] Reason for Visit * Reason Onset Date Comments Med Refill 07/05/2024 Encounter Details Date Type Department Care Team (Late st Contact Info) Description 07/05/2024 Refill [place] [facility] [address], 1[address] [place] [address] Esther Mathew PA [address] [place] [address] Social History Tobacco Use Types [...] the past 12 months has th e [employer], gas, oil, or water company threatened to [...] Indicated 07/05/2024 10:00 AM Nixon Mclaughlin * How difficult have these problems made it for you to do your work, take care of things at home, or get along with other people? Answer Date of Assessment Author Not difficult at all 07/05/2024 10:01 AM Preeti Mclaughlin * Question Answer Date of Assessment Author 1. Wish to be (Past 1 Month) No 024 10:00 AM EST Sow, Preeti C 2. Non-Specific Active Suici arpan Thoughts (Past 1 Month) No 07/05/2024 10:00 AM EST Preeti Delacruz Brisa 6. Suicidal Behavior (Lifetime) No 10:00 AM EST Preeti Delacruz Brisa documented as of this encounter Miscellaneous Notes * Telephone Encounter - Esther Mathew PA - 07/06/2024 8:26 AM EST I will hold on the refill if this was stopped by another provider. documented in this encounter Plan of Treatment Upcoming Encounters Date Type Department Care Team (Late st Contact Info) Description 09/11/2025 11:50 AM EST Office Visit [facility] at [facility] [address] [place] [address] Suzan Galindo DO [address] [place] [address] 03/07/2026 9:20 AM EDT Office Visit [facility] Orthopaedic Surgery & Sports Medicine [address], 1[address] [place] [address] Edgardo Zuñiga MD [address] [place] [address] documented as of this [...] documented as of this encounter Care Teams Rehab Therapist Relationship Specialty Start Date End Date Marc Rodriguez MD [address] [place] [address] PCP - General 12/14/20 Edgardo Zuñiga MD [address] [place] [address] Surgeon Neurosurgery 03/04/21 Giulia Briggs PA [address] [place] [address] Physician Supervisor Reinforced Steel Placing Neurosurgery 07/03/21 Edgardo Zuñiga MD [address] [place] [address] Surgeon Neurosurgery 09/16/21 Esther Mathew PA [address] [place] [address] Physician Supervisor Reinforced Steel Placing Neurology 11/19/22 documented as of this encounter
--- OUTSIDE RECORDS SUMMARY | 2025-04-21 14:04 | XMS_ITS | Encounter Summary ---
[facility] Address [address] [place] [address] Care Team Providers Care Job Cost Estimator Name Role Phone Marc Rodriguez MD Primary Care Provider [phone] Encounter Details Date Type Department Care Team (Late st Contact Info) Description 06/18/2015 External CPT II BUSINESS DEVELOPMENT SALES EXECUTIVE - [facility] Social History Tobacco [...] Description 06/26/2025 9:30 AM EST Procedure visit [facility] PULMONARY & CRITICAL CARE MEDICINE [address] [place] [address] 06/26/2025 10:00 AM EST Office Visit [facility] PULMONARY & CRITICAL CARE MEDICINE [address] [place] [address] Kaitlin Joiner, NEMATOLOGIST [address] [place] [address] 09/12/2025 10:00 AM EST Office Visit [facility]ARDIOLOGY [address] [facility] [address] [place] [address] Jimmy Duncan MD 3000 [facility] [address] [place] [address] documented as of this encounter Visit Diagnoses [...] documented as of this encounter Care Teams Job Cost Estimator Relationship Specialty Start Date End Date Marc Rodriguez MD 1210 [facility] [address] [place] [address] PCP - General Adolescent Medicine 12/08/16 documented as of this encounter
--- OUTSIDE RECORDS SUMMARY | 2025-04-21 14:04 | XMS_ITS | Encounter Summary ---
Author Organization [facility] Address [address] [place] [address] Care Team Providers Care Sap Data Analyst Name Role Phone Marc Rodriguez MD Primary Care Provider [phone] Encounter Details Date Type Department Care Team (Late st Contact Info) Description 01/11/2015 External CPT II VICE PRESIDENT COMPLIANCE - [facility] Social History Tobacco Use [...] PULMONARY & CRITICAL CARE MEDICINE [address] [place] [address] 06/26/2025 10:00 AM EST Office Visit [facility] PULMONARY & CRITICAL CARE MEDICINE [address] [place] [address] Kaitlin Joiner, TANK FURNACE OPERATOR [address] [place] [address] 09/12/2025 10:00 AM EST Office Visit [facility]ARDIOLOGY [address] [facility] [address] [place] [address] Jimmy Duncan MD [address] [facility] [address] [place] [address] documented as of this encounter Visit Diagnoses [...] documented as of this encounter Care Teams Sap Data Analyst Relationship Specialty Start Date End Date Marc Rodriguez MD [address] [facility] [address] [place] [address] PCP - General Adolescent Medicine 12/08/16 documented as of this encounter
--- OUTSIDE RECORDS SUMMARY | 2025-04-21 14:04 | XMS_ITS ---
Author Organization [facility] Address [address] [place] [address] Care Team Providers Care Warehouse Receiver Name Role Phone Marc Rodriguez MD Primary Care Provider [phone] Asthma - External Fill Status:Enrolled (Active) Start date:05/10/2024 Enrollment date:05/10/2024 Enrollment reason:Identified as being on target medication Current support & services provided:Refill Coordination , Benefits Investigation, Prior Authorization, External Pharmacy Dispensing Linked medications:Dupilumab () Linked problems:Severe persistent asthma without complication (Active) Continued Care and Services Coordination
--- OUTSIDE RECORDS SUMMARY | 2025-04-21 14:04 | XMS_ITS | Clinical Summary ---
Author Organization [facility] Address [address] [facility] [address] [place] [address] Care Team Providers Care Electric Sign Assembler Name Role Phone Unavailable Primary Care [...] Payer (Ef fective 2014-Present) Name:Sandie Frank Member ID:[id number] Relation to Subscriber:Self Name:Sandie Frank Subscriber ID:[id number] Payer ID:[id number] Group ID:Not on file Type:Medicare Address: [address]
--- OUTSIDE RECORDS SUMMARY | 2025-04-21 14:04 | XMS_ITS | Encounter Summary ---
Author Organization [facility] Address [address] [place] [address] Care Team Providers Care Steel Pourer Helper Name Role Phone Marc Rodriguez MD Primary Care Provider [phone] Encounter Details Date Type Department Care Team [...] HOSPITAL PULMONARY & CRITICAL CARE MEDICINE [address] [place] [address] 06/26/2025 10:00 AM EST Office Visit [facility] PULMONARY & CRITICAL CARE MEDICINE [address] [place] [address] Kaitlin Joiner, TORI [address] [place] [address] 09/12/2025 10:00 AM EST Office Visit [facility] CARDIOLOGY [address] [facility] [address] [place] [address] Jimmy Duncan MD [address] [facility] [address] [place] [address] documented as of this encounter Visit Diagnoses Not on filedocumented in this encounter Care Teams Steel Pourer Helper Relationship Specialty Start Date End Date Marc Rodriguez MD [address] [facility] [address] [place] [address] PCP - General Adolescent Medicine 12/08/16 documented as of this encounter
[2025-04-21 14:07] LABS: Microscopic, Urine URINE MICROSCOPIC (MICROSCOPIC)
[2025-04-21 14:22] LABS: Bilirubin,Urine Negative (Negative); Color,Urine YELLOW (Yellow); Glucose,Urine (UA) Negative (Negative); Ketones,Urine Negative (Negative); Leukocyte Esterase,Urine 2+ (Negative); PH,Urine 6.0 (5.0-8.5); Protein,Urine TRACE (Negative); Specific Gravity, Urine 1.020 (1.005-1.030); Urobilinogen,Urine 0.2 EU/dl (0.2)
[2025-04-21 16:15] LABS: Amorphous Sediment,Urine 1+ /lpf; Bacteria,Urine 4+ /lpf; RBC,Urine TNTC #/hpf (0-3); Squamous Epithelial Cell,Urine Occasional #/hpf (0-5)
[2025-04-21 16:16] LABS: Calcium Oxalate Crystals,Urine 1+ /lpf
== END 2025-04-21 23:59 | disposition home or self-care (01) ==
LOC: LAB 14:00
PROVIDERS: PCP Internal Medicine Adolescent Medicine; Visit Provider Internal Medicine Adolescent Medicine
DX: R31.0 Gross hematuria (principal)
CPT/HCPCS: 81001; 87086; 87088; 87186

== ENCOUNTER 2025-05-01 13:00 | Outpatient (RCR) | payer MEDICARE, BC, SELFPAY ==
--- NOTE | 2025-04-26 16:51 | HMH.RHREAS ---
Rehab Reassessment Rehab OP Re-assessment Start: 04/04/25 15:52 Freq: Status: Active Protocol: Document 04/26/25 12:54 MARIE (Rec: 04/26/25 16:51 MARIE [id number]) E-signed By Amna Arizmendi PT Oswestry Index Section 1 Pain Intensity The pain comes and goes and is severe Section 2 Personal Care ( increase the pain, but I manage not to change my way of Washing,Dresing) doing it Section 3 Lifting I can only lift very light weights at most Section 4 Walking I cannot walk at all without increasing pain Section 5 Sitting Pain prevents me from sitting for more than one hour Section 6 Standing I avoid standing because it increases the pain immediately Section 7 Sleeping Because of pain, my normal nights sleep is less than 2 hours sleep Section 8 Social Life I hardly have any social life because of pain Section 9 Traveling Pain restricts me to short necessary journeys under 30 minutes Section 10 Changing Degreee of My pain is neither getting better or worse Pain Score and Risk Level Oswestry Score 39 Oswestry Risk Level Completely Disabled Rehab Re-assessment Subjective Subjective Pt reports she feels 65% improved since starting PT. Pt reports she continues to have constant low back pain rated 6/10 on average and 8/10 at worst on VAS. Pt reports she is ambulating to the restroom at home ~30ft with RW and CGA from her . She states she continues to sway and lose her balance randomly with no warning. She states her gabapentin dosage was increased last Thursday and she felt that this made her balance worse so she decreased the dosage back down with noted improvement. Pt denies recent falls. Pt reports she currently has a UTI and is taking an antibiotic. She also states bilateral lower legs continue to be red and swollen. She states pain management has increased her Baclofen in her pain pump with less frequent LE muscle spasms noted. Pt also reports her eyes and mouth continue to be dry and she continues to have double vision. She states she returns to her PCP in 2 weeks on 05/04. She states she feels that she is not making progress as quickly as she did when she was in a similar situation after a previous surgery stating it only took 3 months to recover then whereas now it has been almost a year and she is still using a wheelchair as her main form of mobility with altered seated and dynamic balance. Objective Objective Notes Observation: altered postural control and seated dynamic balance with proximal weakness and altered sensation distally balance/Postural control: pt loses balance forward when looking down, backwards when looking up, and laterally when looking side to side reflected in making turns when ambulating Standing tolerance: able to stand 10' with BUE support with minimal sway, moderate sway noted without BUE support requiring CGA-minAx1 to correct and intermittent knee buckling noted. Transfers: CGA to perform sit to stand and stand step transfers with use of BUE, unable to perform sit to stand transfer with 1 arm or without UE support Ambulation: 250ft with CGA-minAx1 with RW RLE MMT: hip flex 4-/5, hip abd 4/5, hip add 4/5, knee ext 4-/5, knee flex 4/5, ankle DF 4+/5 LLE MMT: hip flex 4-/5, hip abd 4/5, hip add 4/5, knee ext 4-/5, knee flex 4/5, ankle DF 4+/5 *end range weakness noted with MMT with fatigue noted and muscle giving way 5x sit to stand: 20 with BUE support LE reflexes: diminished Assessment Assessment Notes Pt has attended PT/OT co-treatment sessions consisting of aerobic exercise, LE/core strengthening, transfers, standing tolerance, gait training and functional dynamic balance exercises with good tolerance. Pt demonstrated further regression in VICTORINA score this date with report of constant moderate-severe low back pain. Pt has been able to ambulate further distances of 250 feet although requires bouts of minAx1-2 for postural control to assist with trunk sway and altered postural control with visual gaze. Pt continues to rely on a wheelchair as her main form of mobility for safety due to altered balance and postural control. Pt demonstrates end range weakness with manual muscle testing of the proximal>distal lower extremity musculature and is unable to perform a sit to stand transfer without BUE support. Pt again encouraged to contact neurologist regarding double vision, dry eyes/ mouth, and altered postural control for further medical management. Overall, the pt would continue to benefit from skilled PT to assist with subject report of pain, LE/core/trunk strength, postural control, balance/ proprioception, transfers, gait and functional activity tolerance to decrease fall risk, decrease burden of care and improve overall QOL. PT Patient Goals PT Short Term all met Patient Goals PT Correction Patient 8 weeks: 0/5 Goals 1. BLE MMT to 4/5 grossly to assist with function/gait -NOT MET 2. Perform sit to stand from standard chair I -NOT MET 3. Ambulate 50-100ft I with LRD and proper mechanics to decrease fall risk -NOT MET 4. Improve score to moderate-severe disability category to improve overall QOL -NOT MET 5. Improve pain at worst to 4-6/10 to improve overall QOL -NOT MET Plan Plan Continue POC and progress as tolerated. Treat and also refer back to PCP for further medical management due continued altered postural and balance control limiting functional mobility. Frequency of Therapy 2x/week Duration of Therapy 4 more weeks. Therapeutic Exercise Yes Including Home Exercise Program Manual Therapy Yes Techniques Neuromuscular Re- Yes education Therapeutic Yes Activities to Return to Previous Functional/Work Level Gait Training Yes ADL/Self Care Yes Education Group Therapy for Yes Medicare Eval/Re-Eval Yes Time and Billing Re-Eval Time 12 Re-Eval Billing 0 Units Charge for PT No reassessment? Charge for OT No reassessment? PHYSICIAN CERTIFICATION: I certify the specified therapy services for Sandie Frank are required, authorized, and reviewed every 30 days.
== END 2025-05-01 23:59 | disposition home or self-care (01) ==
LOC: PT 13:00
PROVIDERS: PCP Internal Medicine Adolescent Medicine; Visit Provider Internal Medicine Adolescent Medicine
DX: G60.9 Hereditary and idiopathic neuropathy, unspecified (principal); M47.814 Spondylosis without myelopathy or radiculopathy, thoracic region
CPT/HCPCS: 97116; 97530

== ENCOUNTER 2025-05-01 13:00 | Outpatient (RCR) | payer MEDICARE, BC, SELFPAY ==
--- NOTE | 2025-06-07 11:33 | HMH.RHREAS ---
Rehab Reassessment Rehab OP Re-assessment Start: 04/04/25 13:49 Freq: Status: Discharge Protocol: Document 04/19/25 16:03 SHERIDAN (Rec: 04/19/25 16:12 SHERIDAN [id number]) E-signed By Angeline Monson OT Rehab Re-assessment Subjective Subjective I can stand. Objective Objective Notes Pt seen on this date by OT for reassessment. Pt reports she has improved since initial evaluation and last reassessment. Pt reports no UE pain today, but does identify continued back and BLE pain rated 4/10 at worst still, however did report pain has been at 4/10 for a while. Assessment Progress Assessment Progressing as Expected Assessment Notes Pt reports continued intermittent tremors she relates to weakness in BUE. Sitting balance during ADL tasks is improving, although continues to be an area of deficit due to poor core strength and vestibular balance. She has been observed to retrieve small items from floor now when seat belt in place and is able to return to upright midline position mx . Pt continues to report significant numbness and tingling related to neuropathy, with FMC difficulties identified. Pt assists with IADLs, such as simple meal prep tasks, folding laundry, etc. performs majority of IADL task. Pt is primarily wc dependent for mobility and is right hand dominant. She acknowledges that she is benefitting from therapy. and pt reports increased improvement in FM with walker and with completion of ADLs and IADLs being at around 25% assist. Patient has engaged in co-treatment session with OT And PT with focus on engaging in fx?l mobility with usage of RW, static standing and safety during ADL transfers. Patient continues to have LOB throughout session with needing Mod A x 2 with support along with RW. Patient is unsteady on B LE during fx?l mobility session with being a high fall risk without support. Pt is consistent with attending therapy sessions. Pt is progressing well in core stability, endurance, and activity tolerance. Pt is improving in self-care, completion of ADL tasks and IADL tasks with assist. Pt is improving in transfers and balance. Pt shows improved MMT of 4-/5 to 4/5. QuickDASH Activities was 35. Pt's theater technician strength is improving well. Pt demo functional ROM with L shoulder, R shoulder measured Flex 130 degrees, Abd 125 degrees, ER 60 degrees, IR 40 degrees. Making Department Preparer strength today was R hand 28 lbs, L hand 27 lbs. 9 hole Peg test: 40 secs OT Patient Goals OT Short Term 1. Pt will increase Right shoulder flexion to 140 Patient Goals degrees in order to complete daily overhead tasks independently ~50% of the time. 2. Pt will increase R shoulder abduction to 130 degrees to complete upper body dressing independently ~50% of the time. 3. Pt will increase R shoulder ER/IR to 60 degrees (ER) and 45 degrees (IR) in order to complete lower body dressing (putting on and taking off belt) independently ~50% of the time. 4. Pt will increase strength to 4/5 throughout right shoulder in order to complete heavier household tasks ( laundry, mopping, vacuuming) independently ~50% of the time. 5. Pt will verbalize decreased pain levels at worst in R shoulder to a 5/10 in order to complete daily ADLs independently ~50% of the time. 6. Pt will demonstrate improved endurance by completing right shoulder exercises for ~20 minutes prior to rest break in order to increase his tolerance for daily work activities. 7. Pt will demonstrate independence with HEP of AAROM exercises to increase overall functional use of right shoulder in daily activities ~75% of the time. 8. 9-hole peg test no greater than 30 sec bilaterally MET 9. Patient to improve Bilateral theater technician at least 35 lbs in order to open and close container during light meal task 50% of time. OT Care Home Patient 1. Pt will increase Right shoulder flexion to 150 Goals degrees in order to complete daily overhead tasks independently ~50% of the time. 2. Pt will increase R shoulder abduction to 150 degrees to complete upper body dressing independently ~50% of the time. 3. Pt will increase R shoulder ER/IR to 70 degrees (ER) and 55 degrees (IR) in order to complete lower body dressing (putting on and taking off belt) independently ~50% of the time. 4. Pt will increase strength to 4+/5 throughout right shoulder in order to complete heavier household tasks ( laundry, mopping, vacuuming) independently ~50% of the time. 5. Pt will verbalize decreased pain levels at worst in R shoulder to a 4/10 in order to complete daily ADLs independently ~50% of the time. 6. Pt will demonstrate improved endurance by completing right shoulder exercises for ~30 minutes prior to rest break in order to increase his tolerance for daily work activities. 7. Pt will demonstrate independence with HEP of AAROM exercises to increase overall functional use of right shoulder in daily activities ~90% of the time. 8. 9-hole peg test no greater than 30 sec bilaterally MET 9. Patient to improve Bilateral theater technician at least 35 lbs in order to open and close container during light meal task 50% of time. Plan Plan Continue Plan of Care with focus on improve ADLs and fx 'l mobility to decrease fall risk Frequency of Therapy 2x/wk Duration of Therapy 4 weeks Therapeutic Exercise Yes Including Home Exercise Program Manual Therapy Yes Techniques Therapeutic Yes Activities to Return to Previous Functional/Work Level Thermal Modalities Yes Electrical Yes Stimulation Ultrasound/ Yes Phonophoresis Iontophoresis Yes Eval/Re-Eval Yes Time and Billing Re-Eval Time 10 Re-Eval Billing 1 Units Charge for PT No reassessment? Charge for OT Yes reassessment? PHYSICIAN CERTIFICATION: I certify the specified therapy services for Sandie Frank are required, authorized, and reviewed every 30 days.
--- NOTE | 2025-06-07 14:52 | HMH.RHREAS ---
Rehab Reassessment Rehab OP Re-assessment Start: 04/04/25 13:49 Freq: Status: Discharge Protocol: Document 04/19/25 16:03 SHERIDAN (Rec: 04/19/25 16:12 SHERIDAN [id number]) E-signed By Angeline Monson OT Rehab Re-assessment Subjective Subjective I can stand. Objective Objective Notes Pt seen on this date by OT for reassessment. Pt reports she has improved since initial evaluation and last reassessment. Pt reports no UE pain today, but does identify continued back and BLE pain rated 4/10 at worst still, however did report pain has been at 4/10 for a while. Assessment Progress Assessment Progressing as Expected Assessment Notes Pt reports continued intermittent tremors she relates to weakness in BUE. Sitting balance during ADL tasks is improving, although continues to be an area of deficit due to poor core strength and vestibular balance. She has been observed to retrieve small items from floor now when seat belt in place and is able to return to upright midline position mx . Pt continues to report significant numbness and tingling related to neuropathy, with FMC difficulties identified. Pt assists with IADLs, such as simple meal prep tasks, folding laundry, etc. performs majority of IADL task. Pt is primarily wc dependent for mobility and is right hand dominant. She acknowledges that she is benefitting from therapy. and pt reports increased improvement in FM with walker and with completion of ADLs and IADLs being at around 25% assist. Patient has engaged in co-treatment session with OT And PT with focus on engaging in fx?l mobility with usage of RW, static standing and safety during ADL transfers. Patient continues to have LOB throughout session with needing Mod A x 2 with support along with RW. Patient is unsteady on B LE during fx?l mobility session with being a high fall risk without support. Pt is consistent with attending therapy sessions. Pt is progressing well in core stability, endurance, and activity tolerance. Pt is improving in self-care, completion of ADL tasks and IADL tasks with assist. Pt is improving in transfers and balance. Pt shows improved MMT of 4-/5 to 4/5. QuickDASH Activities was 35. Pt's precision market insights strength is improving well. Pt demo functional ROM with L shoulder, R shoulder measured Flex 130 degrees, Abd 125 degrees, ER 60 degrees, IR 40 degrees. Sheep Sticker strength today was R hand 28 lbs, L hand 27 lbs. 9 hole Peg test: 40 secs OT Patient Goals OT Short Term 1. Pt will increase Right shoulder flexion to 140 Patient Goals degrees in order to complete daily overhead tasks independently ~50% of the time. 2. Pt will increase R shoulder abduction to 130 degrees to complete upper body dressing independently ~50% of the time. 3. Pt will increase R shoulder ER/IR to 60 degrees (ER) and 45 degrees (IR) in order to complete lower body dressing (putting on and taking off belt) independently ~50% of the time. 4. Pt will increase strength to 4/5 throughout right shoulder in order to complete heavier household tasks ( laundry, mopping, vacuuming) independently ~50% of the time. 5. Pt will verbalize decreased pain levels at worst in R shoulder to a 5/10 in order to complete daily ADLs independently ~50% of the time. 6. Pt will demonstrate improved endurance by completing right shoulder exercises for ~20 minutes prior to rest break in order to increase his tolerance for daily work activities. 7. Pt will demonstrate independence with HEP of AAROM exercises to increase overall functional use of right shoulder in daily activities ~75% of the time. 8. 9-hole peg test no greater than 30 sec bilaterally MET 9. Patient to improve Bilateral precision market insights at least 35 lbs in order to open and close container during light meal task 50% of time. OT Correction Patient 1. Pt will increase Right shoulder flexion to 150 Goals degrees in order to complete daily overhead tasks independently ~50% of the time. 2. Pt will increase R shoulder abduction to 150 degrees to complete upper body dressing independently ~50% of the time. 3. Pt will increase R shoulder ER/IR to 70 degrees (ER) and 55 degrees (IR) in order to complete lower body dressing (putting on and taking off belt) independently ~50% of the time. 4. Pt will increase strength to 4+/5 throughout right shoulder in order to complete heavier household tasks ( laundry, mopping, vacuuming) independently ~50% of the time. 5. Pt will verbalize decreased pain levels at worst in R shoulder to a 4/10 in order to complete daily ADLs independently ~50% of the time. 6. Pt will demonstrate improved endurance by completing right shoulder exercises for ~30 minutes prior to rest break in order to increase his tolerance for daily work activities. 7. Pt will demonstrate independence with HEP of AAROM exercises to increase overall functional use of right shoulder in daily activities ~90% of the time. 8. 9-hole peg test no greater than 30 sec bilaterally MET 9. Patient to improve Bilateral precision market insights at least 35 lbs in order to open and close container during light meal task 50% of time. Plan Plan Continue Plan of Care with focus on improve ADLs and fx 'l mobility to decrease fall risk Frequency of Therapy 2x/wk Duration of Therapy 4 weeks Therapeutic Exercise Yes Including Home Exercise Program Manual Therapy Yes Techniques Therapeutic Yes Activities to Return to Previous Functional/Work Level Thermal Modalities Yes Electrical Yes Stimulation Ultrasound/ Yes Phonophoresis Iontophoresis Yes Eval/Re-Eval Yes Time and Billing Re-Eval Time 10 Re-Eval Billing 1 Units Charge for PT No reassessment? Charge for OT Yes reassessment? PHYSICIAN CERTIFICATION: I certify the specified therapy services for Sandie Frank are required, authorized, and reviewed every 30 days.
== END 2025-05-01 23:59 | disposition home or self-care (01) ==
LOC: OT 13:00
PROVIDERS: PCP Internal Medicine Adolescent Medicine; Visit Provider Internal Medicine Adolescent Medicine
DX: M47.814 Spondylosis without myelopathy or radiculopathy, thoracic region (principal); G50.9 Disorder of trigeminal nerve, unspecified; R27.0 Ataxia, unspecified
CPT/HCPCS: 97110; 97140; 97168; 97530

== ENCOUNTER 2025-05-02 13:41 | Outpatient (CLI) | payer MEDICARE, BC, SELFPAY ==
--- OUTSIDE RECORDS SUMMARY | 2017-12-24 10:37 | XMS_ITS | Encounter Summary ---
Author Organization [facility] Address [address] [place] [address] Care Team Providers Care Vault Manager Name Role Phone Marc Rodriguez MD Primary Care Provider [phone] Encounter Details Date Type Department Care Team (Late st Contact Info) Description 12/24/2017 10:37 AM EDT Hospital Encounter [facility] PULMONARY & CRITICAL CARE MEDICINE [address] [facility] [place] [address] Social History Tobacco Use Types Packs/Day Years [...] Description 06/26/2025 9:30 AM EST Procedure visit [facility] PULMONARY & CRITICAL CARE MEDICINE [address] [place] [address] 06/26/2025 10:00 AM EST Office Visit [facility] PULMONARY & CRITICAL CARE MEDICINE [address] [place] [address] Kaitlin Joiner, CAREER PORTALS TEACHER [address] [place] [address] 09/12/2025 10:00 AM EST Office Visit [facility] CARDIOLOGY [address] [facility] [address] [place] [address] Jimmy Duncan MD [address] [facility] [address] [place] [address] documented as of this encounter Procedures Procedure [...] documented as of this encounter Care Teams Vault Manager Relationship Specialty Start Date End Date Marc Rodriguez MD [address] [facility] [address] [place] [address] PCP - General Adolescent Medicine 12/08/16 documented as of this encounter
--- OUTSIDE RECORDS SUMMARY | 2018-08-16 11:42 | XMS_ITS | Encounter Summary ---
Author Organization [facility] Address [address] [place] [address] Care Team Providers Care Chief Engineer Name Role Phone Marc Rodriguez MD Primary Care Provider [phone] Encounter Details Date Type Department Care Team (Late st Contact Info) Description 08/16/2018 10:42 AM EST Hospital Encounter [facility] PULMONARY & CRITICAL CARE MEDICINE [address] [place] [address] Social History Tobacco Use Types Packs/Day Years [...] Description 06/26/2025 9:30 AM EST Procedure visit [facility] PULMONARY & CRITICAL CARE MEDICINE [address] [facility] [address] 06/26/2025 10:00 AM EST Office Visit [facility] PULMONARY & CRITICAL CARE MEDICINE [address] [facility] [address] Kaitlin Joiner, ORGANIC CHEMISTRY PROFESSOR [address] [place] [address] 09/12/2025 10:00 AM EST Office Visit [facility] CARDIOLOGY [address] [facility] [address] [place] [phone] Jimmy Duncan MD [address] [facility] [address] [place] [address] documented as of this encounter Procedures Procedure [...] documented as of this encounter Care Teams Chief Engineer Relationship Specialty Start Date End Date Marc Rodriguez MD [address] [place] [id number] PCP - General Adolescent Medicine 12/08/16 documented as of this encounter
--- OUTSIDE RECORDS SUMMARY | 2020-11-12 08:42 | XMS_ITS | Encounter Summary ---
Author Organization [facility] Address [address] [place] [address] Care Team Providers Care Gas Welder Apprentice Name Role Phone Marc Rodriguez MD Primary Care Provider [phone] Encounter Details Date Type Department Care Team (Late st Contact Info) Description 11/12/2020 8:42 AM EDT Hospital Encounter [facility] PULMONARY & CRITICAL CARE MEDICINE [address] [facility] [place] [place] [address] Social History Tobacco Use Types Packs/Day Years [...] Description 06/26/2025 9:30 AM EST Procedure visit [facility] PULMONARY & CRITICAL CARE MEDICINE [address] [place] [address] 06/26/2025 10:00 AM EST Office Visit [facility] PULMONARY & CRITICAL CARE MEDICINE [address] [place] [address] Kaitlin Joiner, INTAKE RN [address] [place] [address] 09/12/2025 10:00 AM EST Office Visit [facility] CARDIOLOGY [address] [facility] [address] [place] [address] Jimmy Duncan MD [address] [facility] [address] [place] [address] documented as of this encounter Procedures Procedure [...] documented as of this encounter Care Teams Gas Welder Apprentice Relationship Specialty Start Date End Date Marc Rodriguez MD [facility] [address] [phone] PCP - General Adolescent Medicine 12/08/16 documented as of this encounter
--- OUTSIDE RECORDS SUMMARY | 2022-07-11 14:36 | XMS_ITS | Encounter Summary ---
Author Organization [facility] Address [address] [place] [address] Care Team Providers Care Auto Inspector Name Role Phone Marc Rodriguez MD Primary Care Provider Encounter Details Date Type Department Care Team (Late Contact Info) Description 07/11/2022 1:36 PM EST Hospital Encounter [facility] PULMONARY & CRITICAL CARE MEDICINE [address] [facility] [place] [address] Social History Tobacco Use Types Packs/Day Years [...] Description 06/26/2025 9:30 AM EST Procedure visit [facility] PULMONARY & CRITICAL CARE MEDICINE [address] [place] [address] 06/26/2025 10:00 AM EST Office Visit [facility] PULMONARY & CRITICAL CARE MEDICINE [address] [place] [address] Kaitlin Joiner, FUNERAL SERVICE PRACTITIONER/EMBALMER [address] [place] [address] 09/12/2025 10:00 AM EST Office Visit [facility] CARDIOLOGY [address] [facility] [address] [place] [address] Jimmy Duncan MD [address] [facility] [address] [place] [address] documented as of this encounter Procedures Procedure [...] was finalized on 07/11/2022 5:50 PM by Edgarod Cash MD. Kaitlin L Rhys FUNERAL SERVICE PRACTITIONER/EMBALMER IMG DIAGNOSTIC IMAGING ORDER JORDANA Final Result documented in this encounter Visit Diagnoses Not on filedocumented in this encounter Care Teams Auto Inspector Relationship Specialty Start Date End Date Marc Rodriguez MD [facility] [address] [place] [address] PCP - General Adolescent Medicine 12/08/16 documented as of this encounter
--- OUTSIDE RECORDS SUMMARY | 2022-08-27 09:46 | XMS_ITS | Encounter Summary ---
Author Organization [facility] Address [address] [place] [address] Care Team Providers Care Rn On Site Name Role Phone Marc Rodriguez MD Primary Care Provider [phone] Encounter Details Date Type Department Care Team (Late Contact Info) Description 08/27/2022 8:46 AM EST Hospital Encounter [facility] PULMONARY & CRITICAL CARE MEDICINE [address] [facility] [place] [address] Social History Tobacco Use Types Packs/Day Years [...] Description 06/26/2025 9:30 AM EST Procedure visit [facility] PULMONARY & CRITICAL CARE MEDICINE [address] [place] [address] 06/26/2025 10:00 AM EST Office Visit [facility] PULMONARY & CRITICAL CARE MEDICINE [address] [place] [address] Kaitlin Joiner, FOIL SPOOLER [address] [place] [address] 09/12/2025 10:00 AM EST Office Visit [facility] CARDIOLOGY [address] [facility] [address] [place] [address] Jimmy Duncan MD [address] [facility] [address] [place] [address] documented as of this encounter Procedures Procedure [...] Coleman 08/27/2022 1:30 PM EST Workstation ID: [id number] Narrative 08/27/2022 1:30 PM EST XR CHEST [...] Laogan 08/27/2022 1:30 PM EST Workstation ID: [id number] Kaitlin Joiner APRN IMG DIAGNOSTIC IMAGING ORDER JORDANA Final Result documented in this encounter Visit Diagnoses Not on filedocumented in this encounter Care Teams Rn On Site Relationship Specialty Start Date End Date Marc Rodriguez MD [facility] [address] [facility] [place] [address] PCP - General Adolescent Medicine 12/08/16 documented as of this encounter
--- OUTSIDE RECORDS SUMMARY | 2024-12-30 09:04 | XMS_ITS | Encounter Summary ---
Author Organization [facility] Address [address] [place] [address] Care Team Providers Care Supervisor Electrolytic Tinning Name Role Phone Marc Rodriguez MD Primary Care Provider [phone] Encounter Details Date Type Department Care Team (Late st Contact Info) Description 12/30/2024 9:04 AM EDT Hospital Encounter [facility] PULMONARY & CRITICAL CARE MEDICINE [address] [facility] [phone] Social History Tobacco Use Types Packs/Day Years [...] Description 06/26/2025 9:30 AM EST Procedure visit [facility] PULMONARY & CRITICAL CARE MEDICINE [address] [place] [address] 06/26/2025 10:00 AM EST Office Visit [facility] PULMONARY & CRITICAL CARE MEDICINE [address] [place] [address] Kaitlin Joiner, TABLE KEEPER [address] [place] [address] 09/12/2025 10:00 AM EST Office Visit [facility] CARDIOLOGY [address] [facility] [address] [place] [phone] Jimmy Duncan MD 3000 [facility] [address] [place] [address] documented as of this encounter Procedures Procedure [...] Impression: No acute cardiopulmonary abnormality. Electronically Signed: Agneline Cooper MD 12/30/2024 9:27 AM EDT Workstation ID: [id number] Narrative 12/30/2024 9:27 AM EDT XR CHEST [...] MD 12/30/2024 9:27 AM EDT Workstation ID: [id number] Kaitlin Joiner APRN IMG DIAGNOSTIC IMAGING ORDER JORDANA Final Result documented in this encounter Visit Diagnoses Not on filedocumented in this encounter Care Teams Supervisor Electrolytic Tinning Relationship Specialty Start Date End Date Marc Rodriguez MD 12[address] [facility] [address] [facility] [address] PCP - General Adolescent Medicine 12/08/16 documented as of this encounter
--- OUTSIDE RECORDS SUMMARY | 2025-03-08 13:40 | XMS_ITS | Encounter Summary ---
Author Organization Healthcare Address [address] [place] [address] Care Team Providers Care Experience Specialist Name Role Phone Marc Rodriguez MD Primary Care Provider [phone] Edgardo Zuñiga MD Unavailable [phone] Giulia Briggs Unavailable [phone] Edgardo Zuñiga MD Unavailable [phone] Esther Mathew Unavailable [phone] Encounter Details Date Type Department Care Team (Late st Contact Info) Description 03/08/2025 1:40 PM EDT Office Visit [facility] [address] [place] [address] Edgardo Zuñiga MD [address] [place] [address] S/P lumbar fusion (Primary Dx) [...] coordination of care. I spent >50% in cdqw-zs-poxo communication with the patient over the diagnosis, treatment options and plan. Edgardo Zuñiga MD MS Intramural Director of Neurosurgery Complex and Minimally Invasive Spine Surgery [facility] [address] [place], [address] documented in this encounter Plan of Treatment Upcoming Encounters Date Type Department Care Team (Late st Contact Info) Description 05/25/2025 2:10 PM EDT Office Visit [facility] [address] [place] [address] Esther Mathew PA [address] [place] [address] 09/11/2025 11:50 AM EST Office Visit [facility] at [facility] [address] [place] [address] Suzan Galindo DO [address] [place] [address] 03/07/2026 9:20 AM EDT Office Visit [facility] Orthopaedic Surgery & Sports Medicine [address] [place] [address] Edgardo Zuñiga MD [address] [place] [address] documented as of this encounter [...] documented as of this encounter Care Teams Experience Specialist Relationship Specialty Start Date End Date Marc Rodriguez MD [address] [place] [address] PCP - General 12/14/20 Edgardo Zuñiga MD [address] [place] [address] Surgeon Neurosurgery 03/04/21 Giulia Briggs PA [address] [place] [address] Physician Pharmacist Intern Neurosurgery 07/03/21 Edgardo Zuñiga MD [address] [place] [address] Surgeon Neurosurgery 09/16/21 Esther Mathew PA [address] [place] [address] Physician Pharmacist Intern Neurology 11/19/22 documented as of this encounter
--- OUTSIDE RECORDS SUMMARY | 2025-03-08 14:06 | XMS_ITS | Encounter Summary ---
Author Organization Healthcare Address [address] [place] [address] Care Team Providers Care Cook Cashier Food Prep Name Role Phone Marc Rodriguez MD Primary Care Provider [phone] Edgardo Zuñiga MD Unavailable [phone] Giulia Briggs Unavailable [phone] Edgardo Zuñiga MD Unavailable [phone] Esther Mathew Unavailable [phone] Encounter Details Date Type Department Care Team (Latest Contact Info) Description 03/08/2025 2:06 PM EDT - 03/08/2025 11:59 PM EDT Hospital Encounter [place] [facility] [address], [address] [place] [address] S/P lumbar fusion Discharge Disposition: Home or [...] the past 12 months has th e [employer], gas, oil, or water [employer] threatened to shut off services in your [...] Description 05/25/2025 2:10 PM EDT Office Visit [place] [facility] [address] [place] [address] Esther Mathew PA [address] [place] [address] 09/11/2025 11:50 AM EST Office Visit [facility] [address] [place] [address] Suzan Galindo, [address] [place] [address] 03/07/2026 9:20 AM EDT Office Visit [facility] Orthopaedic Surgery & Sports Medicine [address] [place] [address] Edgardo Zuñiga MD [address] [place] [address] documented as of this encounter [...] documented as of this encounter Care Teams Cook Cashier Food Prep Relationship Specialty Start Date End Date Marc Rodriguez MD [address] [place] [address] PCP - General 12/14/20 Edgardo Zuñiga MD [address] [place] [address] Surgeon Neurosurgery 03/04/21 Giulia Briggs PA [address] [place] [address] Physician Historiography Professor Neurosurgery 07/03/21 Edgardo Zuñiga MD [address] [place] [address] Surgeon Neurosurgery 09/16/21 Esther Mathew PA [address] [place] [address] Physician Historiography Professor Neurology 11/19/22 documented as of this encounter
--- OUTSIDE RECORDS SUMMARY | 2025-03-09 13:20 | XMS_ITS | Encounter Summary ---
Author Organization Healthcare Address [address] [place] [address] Care Team Providers Care Relief Charge Nurse Name Role Phone Marc Rodriguez MD Primary Care Provider [phone] Edgardo Zuñiga MD Unavailable [phone] Giulia Briggs PA Unavailable [phone] Edgardo Zuñiga MD Unavailable [phone] Esther Mathew Unavailable [phone] Reason for Visit * Reason Comments Follow-up Encounter Details Date Type Department Care Team (Late st Contact Info) Description 03/09/2025 1:20 PM EDT Office Visit Physical Medicine & Rehabilitation Clinic at [facility] [address] [address] Suzan Galindo DO [address] [facility] [address] [place] [address] High risk medication use (Primary [...] place to sleep or slept in a halfway (including now)? No 05/13/2024 PHQ-9 Answer Date [...] be a TIA. Pt then transitioned to [facility] for inpatient rehab with then dc [...] groomed, in no acute distress, sitting in [facility] Ear, Nose, Mouth and Throat: Atraumatic, normocephalic, [...] Description 05/25/2025 2:10 PM EDT Office Visit [facility] [address] [place] [address] Esther Mathew PA [address] [place] [address] 09/11/2025 11:50 AM EST Office Visit [facility] [address] [place] [address] Suzan Galindo DO [address] [place] [address] 03/07/2026 9:20 AM EDT Office Visit [facility] Orthopaedic Surgery & Sports Medicine [address] [place] [address] Edgardo Zuñiga MD [address] [place] [address] documented as of this encounter Results * (ABNORMAL) Comprehensive metabolic panel (03/09/2025 2:40 PM EDT) Glucose, Plasma 91 74 - 99 mg/dL 03/09/2025 5:10 PM EDT [facility] BUN, Plasma 14 8 - 23 mg/dL 03/09/2025 5:10 PM EDT [facility] Creatinine, Plasma 0.73 0.60 - 1.10 mg/dL 03/09/2025 5:10 PM EDT [facility] BUN/Creatinine Ratio 19 03/09/2025 5:10 PM EDT [facility] Sodium, Plasma 144 136 - 145 mmol/L 03/09/2025 5:10 PM EDT [facility] Potassium, Plasma 5.1(H) 3.6 - 4.9 mmol/L 03/09/2025 5:10 PM EDT [facility] Chloride, Plasma 106 97 - 107 mmol/L 03/09/2025 5:10 PM EDT [facility] CO2, Plasma 28 22 - 29 mmol/L 03/09/2025 5:10 PM EDT [facility] Anion Gap 10 6 - 16 mmol/L 03/09/2025 5:10 PM EDT [facility] Total Calcium, Plasma 9.8 8.9 - 10.2 mg/dL 03/09/2025 5:10 PM EDT [facility] Total Protein 6.6 6.3 - 7.9 g/dL 03/09/2025 5:10 PM EDT [facility] Albumin, Plasma 3.8 3.5 - 5.2 g/dL 03/09/2025 5:10 PM EDT [facility] AST, Plasma 77(H) 10 - 35 U/L 03/09/2025 5:10 PM EDT [facility] ALT, Plasma 38(H) 10 - 35 U/L 03/09/2025 5:10 PM EDT [facility] Alkaline Phosphatase, Plasma 140 46 - 142 U/L 03/09/2025 5:10 PM EDT [facility] Total Bilirubin, Plasma 0.7 0.2 - 1.1 mg/dL 03/09/2025 5:10 PM EDT [facility] eGFRcr 88.0 mL/min/1.7 3m*2 03/09/2025 5:10 PM EDT [facility] Comment:Reported eGFRcr in m L/min/1.73m2 is based the CKD-EPI 2020 equation that does not use a race coefficient. Blood Venous blood specimen / Unknown Venipuncture / Unknown 03/09/2025 2:40 PM EDT 03/09/2025 2:40 PM EDT us Suzan Sanchez DO LAB BLOOD ORDERABLES Final Result [facility] [address] [place] [address] documented in this encounter Visit Diagnoses Diagnosis [...] documented as of this encounter Care Teams Relief Charge Nurse Relationship Specialty Start Date End Date Mrac Rodriguez MD [address] [place] [address] PCP - General 12/14/20 Edgardo Zuñiga MD [address] [place] [address] Surgeon Neurosurgery 03/04/21 Giulia Briggs PA [address] [place] [address] Physician Analytics Developer Neurosurgery 07/03/21 Edgardo Zuñiga MD [address] [place] [address] Surgeon Neurosurgery 09/16/21 Esther Mathew PA [address] [place] [address] Physician Analytics Developer Neurology 11/19/22 documented as of this encounter
--- OUTSIDE RECORDS SUMMARY | 2025-03-13 09:45 | XMS_ITS | Encounter Summary ---
[facility] Organization [facility] Address [address] [place] [address] Care Team Providers Care Template Worker Name Role Phone Marc Rodriguez MD Primary Care Provider [phone] Reason for Visit * Reason Comments Hypertension Hyperlipidemia Encounter Details Date Type Department Care Team (Latest Contact Info) Description 03/13/2025 9:45 AM EDT Office Visit [facility] C[facility] [address] [place] [phone] Jimmy Duncan MD [address] [facility] [address] [id number] Primary hypertension (Primary Dx); Hyperlipidemia LDL goal [...] reassessed in 6 months. Discussed with patient [employer] and [employer] provide detailed guidelines for accurate [...] PCP: Marc Rodriguez MD Date: 03/13/2025 Department: [facility] CARDIOLOGY [address] [facility] [address] Chief Complaint Patient presents with Hypertension Hyperlipidemia [...] Procedure Laterality Date APPENDECTOMY 1973 BREAST BIOPSY [id number] multiple CARDIAC CATHETERIZATION 03/13/2009 AE @ [facility]- [...] reassessed in 6 months. Discussed with patient [employer] and [employer] provide detailed guidelines for accurate [...] any significant symptoms or go to the [facility] Emergency room if possible. Jimmy Duncan MD, [facility]. [place] [facility] Part of this note may be an electronic boot repairer/translation of spoken language to printed textusing the BuzzDashation System. documented in this encounter Plan of Treatment Upcoming Encounters Date Type Department Care Team (Late st Contact Info) Description 06/26/2025 9:30 AM EST Procedure visit [facility] PULMONARY & CRITICAL CARE MEDICINE [address] [facility] [place] [address] 06/26/2025 10:00 AM EST Office Visit [facility] PULMONARY & CRITICAL CARE MEDICINE [address] [facility] [place] [address] Kaitlin Joiner, TORI [address] [place] [address] 09/12/2025 10:00 AM EST Office Visit [facility] CARDIOLOGY [address] [place] [phone] Jimmy Duncan MD [address] [facility] [address] [place] [address] Scheduled Orders Name Type Priority Associated Diagnoses [...] PCP: Marc Rodriguez MD Date: 03/13/2025 Department: [facility] C[facility] [address] [facility] [address] Chief Complaint Patient presents with Hypertension Hyperlipidemia [...] Procedure Laterality Date APPENDECTOMY 1973 BREAST BIOPSY [id number] multiple CARDIAC CATHETERIZATION 03/13/2009 AE @ [facility]- [...] reassessed in 6 months. Discussed with patient [employer] and [employer] HeartAssociation provide detailed guidelines for accurate blood [...] any significant symptoms or go to the [facility] Emergencyroom if possible. Jimmy Duncan MD, [facility]. [place] [facility] Part of this note may be an electronic boot repairer/translation of spokenlanguage to printed text using the BuzzDashation System. us Jimmy Duncan MD ECG ORDERABLES Final Result documented in this encounter Visit Diagnoses Diagnosis Primary hypertension- Primary Unspecified essential hypertension Hyperlipidemia LDL goal <100 Other and unspecified hyperlipidemia Chronic venous insufficiency of lower extremity documented in this encounter Care Teams Template Worker Relationship Specialty Start Date End Date Marc Rodriguez MD [address] [facility] [address] [place] [address] PCP - General Adolescent Medicine 12/08/16 documented as of this encounter
--- OUTSIDE RECORDS SUMMARY | 2025-05-02 13:45 | XMS_ITS | Encounter Summary ---
Author Organization [facility] Address [address] [place] [address] Care Team Providers Care Door Glass Installer Name Role Phone Marc Rodriguez MD Primary Care Provider [phone] Edgardo Zuñiga MD Unavailable [phone] Giulia Briggs Unavailable [phone] Edgardo Zuñiga MD Unavailable [phone] Esther Mathew Unavailable [phone] Encounter Details Date Type Department Care Team [...] Visit [place] [facility] [address] [place] [address] Esther Mathew PA [address] [place] [address] 09/11/2025 11:50 AM EST Office Visit [facility] [address] [place] [address] Tony GalindoaDO [address] [place] [address] 03/07/2026 9:20 AM EDT Office Visit [facility] Orthopaedic Surgery & Sports Medicine [address] 1[address] [place] [address] Edgardo Zuñiga MD [address] [place] [address] documented as of this encounter [...] documented as of this encounter Care Teams Door Glass Installer Relationship Specialty Start Date End Date Marc Rodriguez MD [address] [place] [address] PCP - General 12/14/20 Edgardo Zuñiga MD [address] [place] [address] Surgeon Neurosurgery 03/04/21 Giulia Briggs PA [address] [place] [address] Physician Fur Tanner Neurosurgery 07/03/21 Edgardo Zuñiga MD [address] [place] [address] Surgeon Neurosurgery 09/16/21 Esther Mathew PA [address] [place] [address] Physician Fur Tanner Neurology 11/19/22 documented as of this encounter
--- OUTSIDE RECORDS SUMMARY | 2025-05-02 13:45 | XMS_ITS | Encounter Summary ---
Author Organization [facility] Address [address] [place] [address] Care Team Providers Care Brown Sourer Name Role Phone Marc Rodriguez MD Primary Care Provider Encounter Details Date Type Department Care Team (Late st Contact Info) Description 05/17/2019 External CPT II FURNACE TENDER - [facility] Social History Tobacco [...] PULMONARY & CRITICAL CARE MEDICINE [address] [place] [address] 06/26/2025 10:00 AM EST Office Visit [facility] PULMONARY & CRITICAL CARE MEDICINE [address] [place] [address] Kaitlin Joiner, TORI [address] [place] [address] 09/12/2025 10:00 AM EST Office Visit [facility] CARDIOLOGY [address] [facility] [address] [place] [address] Jimmy Duncan MD [address] [facility] [address] [place] [address] documented as of this encounter Visit Diagnoses [...] documented as of this encounter Care Teams Brown Sourer Relationship Specialty Start Date End Date Marc Rodriguez MD [address] [facility] [address] [facility] [place] [address] PCP - General Adolescent Medicine 12/08/16 documented as of this encounter
--- OUTSIDE RECORDS SUMMARY | 2025-05-02 13:45 | XMS_ITS | Encounter Summary ---
Author Organization [facility] Address [address] [place] [address] Care Team Providers Care Burr Picker Name Role Phone Marc Rodriguez MD Primary Care Provider [phone] Edgardo Zuñiga MD Unavailable [phone] Giulia Briggs Unavailable [phone] Edgardo Zuñiga MD Unavailable [phone] Esther Mathew Unavailable [phone] Reason for Visit * Reason Onset Date Comments HCN Clinical Concern/Question 04/07/2025 Encounter Details Date Type Department Care Team (Late st Contact Info) Description 04/07/2025 Telephone Physical Medicine & Rehabilitation Clinic at [facility] [address] [place] [address] Suzan Galindo DO [address] [facility] [address] [place] [address] HCN Clinical Concern/Question Social History [...] received her lab results Best contact number: [phone] (mobile) Optimal time of day to reach caller: ANYTIME Additional comments/information from caller: None Note: Please do not reply to this message. Follow-up communication and further actions as a result of this message need to be communicated with the patient directly, if the patient is not active onMyChart. If the patient is active on MyChart, they will receive notification of the communication/outcome via [employer]. documented in this encounter Plan of Treatment Upcoming Encounters Date Type Department Care Team (Late st Contact Info) Description 05/25/2025 2:10 PM EDT Office Visit [facility] [address] 1[address] [place] [address] Esther Mathew, PA [address] [place] [address] 09/11/2025 11:50 AM EST Office Visit [facility] [address] [place] [address] Suzan Galindo DO [address] [place] [address] 03/07/2026 9:20 AM EDT Office Visit [facility] Orthopaedic Surgery & Sports Medicine [address] [place] [address] Edgardo Zuñiga MD [address] [place] [address] documented as of this encounter Visit [...] documented as of this encounter Care Teams Burr Picker Relationship Specialty Start Date End Date Marc Rodriguez MD [address] [place], [place] [id number] PCP - General 12/14/20 Edgardo Zuñiga MD [address] [place] [address] Surgeon Neurosurgery 03/04/21 Giulia Briggs PA [address] [place] [address] Physician Jet Ski Mechanic Neurosurgery 07/03/21 Edgardo Zuñiga MD [address] [place] [address] Surgeon Neurosurgery 09/16/21 Esther Mathew PA [address] [place] [address] Physician Jet Ski Mechanic Neurology 11/19/22 documented as of this encounter
--- OUTSIDE RECORDS SUMMARY | 2025-05-02 13:45 | XMS_ITS | Encounter Summary ---
Author Organization [facility] Address [address] [place] [address] Care Team Providers Care Threshing Department Supervisor Name Role Phone Marc Rodriguez MD Primary Care Provider [phone] Edgardo Zuñiga MD Unavailable [phone] Giulia Briggs Unavailable [phone] Edgardo Zuñiga MD Unavailable [phone] Esther Mathew Unavailable [phone] Reason for Visit * Reason Onset Date Comments Med Refill 03/10/2025 Encounter Details Date Type Department Care Team (Late st Contact Info) Description 03/10/2025 Refill Physical Medicine & Rehabilitation Clinic at [facility] [address] [place] [address] Suzan Galindo DO [address] [facility] [address] [place] [address] Social History Tobacco Use Types [...] the past 12 months has th e [employer], gas, oil, or water company threatened to [...] Description 05/25/2025 2:10 PM EDT Office Visit [facility] [address] [place] [address] Esther Mathew PA [address] [place] [address] 09/11/2025 11:50 AM EST Office Visit [facility] [address] [place] [address] Suzan Galindo DO [address] [place] [address] 03/07/2026 9:20 AM EDT Office Visit [facility] Orthopaedic Surgery & Sports Medicine [address] [place] [address] Edgardo Zuñiga MD [address] [facility] [place] [address] documented as of this encounter [...] documented as of this encounter Care Teams Threshing Department Supervisor Relationship Specialty Start Date End Date Marc Rodriguez MD [address] [place] [address] PCP - General 12/14/20 Edgardo Zuñiga MD [address] [place] [address] Surgeon Neurosurgery 03/04/21 Giulia Briggs PA [address] [place] [address] Physician Corrosion Prevention Metal Sprayer Neurosurgery 07/03/21 Edgardo Zuñiga MD [address] [place] [address] Surgeon Neurosurgery 09/16/21 Esther Mathew PA [address] [place] [address] Physician Corrosion Prevention Metal Sprayer Neurology 11/19/22 documented as of this encounter
--- OUTSIDE RECORDS SUMMARY | 2025-05-02 13:45 | XMS_ITS | Encounter Summary ---
Author Organization [facility] Address [address] [place] [address] Care Team Providers Care Silhouette Artist Name Role Phone Marc Rodriguez MD Primary Care Provider [phone] Edgardo Zuñiga MD Unavailable [phone] Giulia Briggs Unavailable [phone] Edgardo Zuñiga MD Unavailable [phone] Esther Mathew Unavailable [phone] Encounter Details Date Type Department Care Team (Late st Contact Info) Description 03/10/2025 Results Follow-Up Physical Medicine & Rehabilitation Clinic at [facility] [address] [place] [address] Suzan Galindo DO [address] [facility] [address] [place] [address] Social History Tobacco Use Types [...] the past 12 months has th e [employer], gas, oil, or water [employer] threatened to shut off services in your home? No 05/13/2024 Comments No Sex and Gender Information Value Date Recorded Sex Assigned at Female 07/31/2021 6:10 AM EST Legal Sex Female 8:40 PM EDT Gender Identity Female 07/31/2021 6:10 AM EST Sexual Orientation Not on file documented as of this encounter Miscellaneous Notes * Result Encounter Note - Preeti Delacruz Brias - 03/10/2025 3:35 PM EDT I spoke [...] Visit [place] [facility] [address] [place] [address] Esther Mathew, PA [address] [place] [address] 09/11/2025 11:50 AM EST Office Visit [facility] [address] [place] [address] Suzan Galindo DO [address] [place] [address] 03/07/2026 9:20 AM EDT Office Visit [facility] Orthopaedic Surgery & Sports Medicine [address] [place] [address] Edgardo Zuñiga MD [address] [place] [address] documented as of this encounter [...] documented as of this encounter Care Teams Silhouette Artist Relationship Specialty Start Date End Date Marc Rodriguez MD [address] [place] [address] PCP - General 12/14/20 Edgardo Zuñiga MD [address] [place] [address] Surgeon Neurosurgery 03/04/21 Giulia Briggs PA [address] [place] [address] Physician Landcare Facilitator Neurosurgery 07/03/21 Edgardo Zuñiga MD [address] [place] [address] Surgeon Neurosurgery 09/16/21 Esther Mathew PA [address] [place] [address] Physician Landcare Facilitator Neurology 11/19/22 documented as of this encounter
--- OUTSIDE RECORDS SUMMARY | 2025-05-02 13:45 | XMS_ITS | Encounter Summary ---
Author Organization [facility] Address [address] [place] [address] Care Team Providers Care Hollow Core Door Frame Assembler Name Role Phone Marc Rodriguez MD Primary Care Provider [phone] Edgardo Zuñiga MD Unavailable [phone] Giulia Briggs Unavailable [phone] Edgardo Zuñiga MD Unavailable [phone] Esther Mathew Unavailable [phone] Encounter Details Date Type Department Care Team (Late st Contact Info) Description 03/07/2025 Orders Only [place] [facility] [address] [place] [address] Edgardo Zuñiga MD [address] [place] [address] S/P lumbar fusion (Primary Dx) [...] the past 12 months has th e [employer], gas, oil, or water [employer] threatened to shut off services in your [...] Visit [place] [facility] [address] [place] [address] Esther Mathew PA [address] [place] [address] 09/11/2025 11:50 AM EST Office Visit [facility] Medicine & Rehabilitation Clinic at [facility] [address] [place] [address] Suzan Galindo DO [address] [place] [address] 03/07/2026 9:20 AM EDT Office Visit [facility] Orthopaedic Surgery & Sports Medicine [address] [place] [address] Edgardo Zuñiga MD [address] [place] [address] documented as of this encounter [...] documented as of this encounter Care Teams Hollow Core Door Frame Assembler Relationship Specialty Start Date End Date Marc Rodriguez MD [address] [place] [address] PCP - General 12/14/20 Edgardo Zuñiga MD [address] [place] [address] Surgeon Neurosurgery 03/04/21 Giulia Briggs PA [address] [place] [address] Physician Application Development Consultant Neurosurgery 07/03/21 Edgardo Zuñiga MD [address] [place] [address] Surgeon Neurosurgery 09/16/21 Esther Mathew PA [address] [place] [address] Physician Application Development Consultant Neurology 11/19/22 documented as of this encounter
--- OUTSIDE RECORDS SUMMARY | 2025-05-02 13:45 | XMS_ITS | Encounter Summary ---
Author Organization Healthcare Address [address] [place] [address] Care Team Providers Care Retail Maintenance Technician Name Role Phone Marc Rodriguez MD Primary Care Provider [phone] Edgardo Zuñiga MD Unavailable [phone] Giulia Briggs Unavailable [phone] Edgardo Zuñiga MD Unavailable [phone] Esther Mathew Unavailable [phone] Encounter Details Date Type Department Care Team (Late st Contact Info) Description 03/10/2025 Orders Only [facility] [address] [place] [address] Suzan Galindo DO [address] [place] [address] Social History Tobacco Use Types [...] the past 12 months has th e [employer], gas, oil, or water [employer] threatened to shut off services in your [...] 2:10 PM EDT Office Visit [place] [facility] Clinic [address], 1[address] [place] [address] Esther Mathew PA [address] [place] [address] 09/11/2025 11:50 AM EST Office Visit [facility] [address] [place] [address] Suzan Galindo DO [address] [place] [address] 03/07/2026 9:20 AM EDT Office Visit [facility] Orthopaedic Surgery & Sports Medicine [address], 1[address] [place] [address] Edgardo Zuñiga MD [id number] [place] [address] documented as of this encounter [...] documented as of this encounter Care Teams Retail Maintenance Technician Relationship Specialty Start Date End Date Marc Rodriguez MD [address] [place] [address] PCP - General 12/14/20 Edgardo Zuñiga MD [address] [place] [address] Surgeon Neurosurgery 03/04/21 Giulia Briggs PA [address] [place] [address] Physician Reagent Tender Helper Neurosurgery 07/03/21 Edgardo Zuñiga MD [address] [place] [address] Surgeon Neurosurgery 09/16/21 Esther Mathew PA [address] [place] [address] Physician Reagent Tender Helper Neurology 11/19/22 documented as of this encounter
--- OUTSIDE RECORDS SUMMARY | 2025-05-02 13:45 | XMS_ITS | Encounter Summary ---
Author Organization [facility] Address [address] [place] [address] Care Team Providers Care Systems Checkout Mechanic Name Role Phone Marc Rodriguez MD Primary Care Provider [phone] Encounter Details Date Type Department Care Team (Late st Contact Info) Description 07/15/2019 External CPT II HOSIERY OPERATOR - [facility] Social History Tobacco [...] PULMONARY & CRITICAL CARE MEDICINE [address] [place] [address] 06/26/2025 10:00 AM EST Office Visit [facility] PULMONARY & CRITICAL CARE MEDICINE [address] [place] [address] Kaitlin Joiner, TORI [address] [place] [address] 09/12/2025 10:00 AM EST Office Visit [facility] CARDIOLOGY [address] [facility] [address] [place] [address] Jimmy Duncan MD 3000 [facility] [address] [place] [address] documented as of this encounter Visit Diagnoses [...] documented as of this encounter Care Teams Systems Checkout Mechanic Relationship Specialty Start Date End Date Marc Rodriguez MD [address] [facility] [address] [place] [address] PCP - General Adolescent Medicine 12/08/16 documented as of this encounter
--- OUTSIDE RECORDS SUMMARY | 2025-05-02 13:45 | XMS_ITS | Encounter Summary ---
Author Organization [facility] Address [address] [place] [address] Care Team Providers Care Refractory Grinder Operator Name Role Phone Marc Rodriguez MD Primary Care Provider [phone] Edgardo Zuñiga MD Unavailable [phone] Giulia Briggs Unavailable [phone] Edgardo Zuñiga MD Unavailable [phone] Esther Mathew Unavailable [phone] Encounter Details Date Type Department Care Team [...] Description 05/25/2025 2:10 PM EDT Office Visit [facility] [address] 1[address] [place] [address] Esther Mathew PA [address] [place] [address] 09/11/2025 11:50 AM EST Office Visit [facility] [address] [place] [address] Suzan Galindo DO [address] [place] [address] 03/07/2026 9:20 AM EDT Office Visit [facility] Orthopaedic Surgery & Sports Medicine [address], 1[address] [place] [address] Edgardo Zuñiga MD [address] [place] [address] documented as of this [...] documented as of this encounter Care Teams Refractory Grinder Operator Relationship Specialty Start Date End Date Marc Rodriguez MD [address] [place] [address] PCP - General 12/14/20 Edgardo Zuñiga MD [address] [place] [address] Surgeon Neurosurgery 03/04/21 Giulia Briggs PA [address] [place] [address] Physician Pneumatic Deicer Inspector Neurosurgery 07/03/21 Edgardo Zuñiga MD [address] [place] [address] Surgeon Neurosurgery 09/16/21 Esther Mathew PA [address] [place] [address] Physician Pneumatic Deicer Inspector Neurology 11/19/22 documented as of this encounter
--- OUTSIDE RECORDS SUMMARY | 2025-05-02 13:45 | XMS_ITS | Encounter Summary ---
Author Organization [facility] Address [address] [place] [address] Care Team Providers Care Shed Hand Name Role Phone Marc Rodriguez MD Primary Care Provider [phone] Encounter Details Date Type Department Care Team (Late st Contact Info) Description 06/23/2019 External CPT II DOLLY PUSHER - [facility] Social History Tobacco Use [...] Description 06/26/2025 9:30 AM EST Procedure visit [facility] PULMONARY & CRITICAL CARE MEDICINE [address] [place] [address] 06/26/2025 10:00 AM EST Office Visit [facility] PULMONARY & CRITICAL CARE MEDICINE [address] [place] [address] Kaitlin Joiner, TORI [address] [place] [address] 09/12/2025 10:00 AM EST Office Visit [facility] CARDIOLOGY [address] [facility] [address] [place] [address] Jimmy Duncan MD 3000 [facility] [address] [place] [address] documented as of this encounter Visit Diagnoses [...] documented as of this encounter Care Teams Shed Hand Relationship Specialty Start Date End Date Marc Rodriguez MD [address] [facility] [address] [facility] [place] [address] PCP - General Adolescent Medicine 12/08/16 documented as of this encounter
--- OUTSIDE RECORDS SUMMARY | 2025-05-02 13:46 | XMS_ITS | Encounter Summary ---
Author Organization [facility] Address [address] [place] [address] Care Team Providers Care Pitch Flaker Name Role Phone Marc Rodriguez MD Primary Care Provider [phone] Encounter Details Date Type Department Care Team (Late st Contact Info) Description 11/26/2018 External CPT II SENIOR ENLISTED ADVISOR - [facility] Social History Tobacco Use [...] PULMONARY & CRITICAL CARE MEDICINE [address] [place] [address] 06/26/2025 10:00 AM EST Office Visit [facility] PULMONARY & CRITICAL CARE MEDICINE [address] [place] [address] Kaitlin Joiner, TRAFFIC DIRECTOR [address] [place] [address] 09/12/2025 10:00 AM EST Office Visit [facility] CARDIOLOGY [address] [facility] [address] [place] [address] Jimmy Duncan MD 3000 [facility] [address] [place] [address] documented as of this encounter Visit Diagnoses [...] documented as of this encounter Care Teams Pitch Flaker Relationship Specialty Start Date End Date Marc Rodriguez MD [address] [facility] [address] [facility] [place] [address] PCP - General Adolescent Medicine 12/08/16 documented as of this encounter
--- OUTSIDE RECORDS SUMMARY | 2025-05-02 13:46 | XMS_ITS | Encounter Summary ---
Author Organization [facility] Address [address] [place] [address] Care Team Providers Care [place] Boatman Name Role Phone Marc Rodriguez MD Primary Care Provider [phone] Reason for Visit * Reason Onset Date Comments DR. GOSS - MARIE ORDERS 03/07/2025 Encounter Details Date Type Department Care Team (Late st Contact Info) Description 03/07/2025 Telephone [facility] CARDIOLOGY [address] [facility] [address] [place] [address] Jimmy Goss MD 3000 [facility] [address] [address] DR. GOSS - MARIE ORDERS Social History [...] 03/07/2025 9:23 AM EDT FAXED ORDERS TO [facility] @ [phone] * Telephone Encounter - Jono Soler RegSched Rep - 03/07/2025 8:25 AM EDT Caller: Sandie Frank Relationship: Self Best call back number: [phone] What orders are you requesting (i.e. lab or imaging): LAB ORDERS In what timeframe would the patient need to come in: ASHLEY Where will you receive your lab/imaging services: [facility] Additional notes: PT SAYS FACILITY HAS NOT RECEIVED THESE ORDERS YET. PLEASE RESEND THESE ORDERS WHEN AVAILABLE TO [phone]. PLEASE CALL PT AFTER THIS HAS BEEN DONE. documented in this encounter Plan of Treatment Upcoming Encounters Date Type Department Care Team (Late st Contact Info) Description 06/26/2025 9:30 AM EST Procedure visit [facility] PULMONARY & CRITICAL CARE MEDICINE [address] [place] [address] 06/26/2025 10:00 AM EST Office Visit [facility] PULMONARY & CRITICAL CARE MEDICINE [address] [place] [address] Kaitlin Joiner, DRY WALL INSTALLATIONS MECHANIC [address] [place] [address] 09/12/2025 10:00 AM EST Office Visit [facility] CARDIOLOGY [address] [facility] [address] [place] [address] Jimmy Goss MD 3000 [facility] [address] [place] [address] documented as of this encounter Visit Diagnoses Not on filedocumented in this encounter Care Teams [place] Boatman Relationship Specialty Start Date End Date Marc Rodriguez MD [address] [facility] [address] [place] [address] PCP - General Adolescent Medicine 12/08/16 documented as of this encounter
--- OUTSIDE RECORDS SUMMARY | 2025-05-02 13:46 | XMS_ITS | Encounter Summary ---
Author Organization [facility] Address [address] [place] [address] Care Team Providers Care Slate Worker Name Role Phone Marc Rodriguez MD Primary Care Provider [phone] Encounter Details Date Type Department Care Team (Late st Contact Info) Description 06/18/2016 External CPT II PACKAGE CHECKER - [facility] Social History Tobacco Use [...] & CRITICAL CARE MEDICINE [address] [place] [address] 06/26/2025 10:00 AM EST Office Visit [facility] PULMONARY & CRITICAL CARE MEDICINE [address] [place] [address] Kaitlin Joiner APRN [address] [place] [address] 09/12/2025 10:00 AM EST Office Visit [facility] CARDIOLOGY [address] [facility] [address] [place] [address] Jimmy Duncan MD 3000 [facility] [address] [place] [address] documented as of this encounter Visit Diagnoses [...] documented as of this encounter Care Teams Slate Worker Relationship Specialty Start Date End Date Marc Rodriguez MD [address] [facility] [address] [place] [address] PCP - General Adolescent Medicine 12/08/16 documented as of this encounter
--- OUTSIDE RECORDS SUMMARY | 2025-05-02 13:46 | XMS_ITS | Encounter Summary ---
Author Organization [facility] Address [address] [place] [address] Care Team Providers Care Director Digital Catalogue Name Role Phone Marc Rodriguez MD Primary Care Provider [phone] Encounter Details Date Type Department Care Team (Late st Contact Info) Description 11/27/2015 External CPT II BACK SHOE OPERATOR - [facility] Social History Tobacco [...] & CRITICAL CARE MEDICINE [address] [place] [address] 06/26/2025 10:00 AM EST Office Visit [facility] PULMONARY & CRITICAL CARE MEDICINE [address] [place] [address] Kaitlin Joiner APRN [address] [place] [address] 09/12/2025 10:00 AM EST Office Visit [facility] CARDIOLOGY [address] [facility] [address] [place] [address] Jimmy Duncan MD 3000 [facility] [address] [place] [address] documented as of this encounter Visit Diagnoses [...] as of this encounter Care Teams Director Digital Catalogue Relationship Specialty Start Date End Date Marc Rodriguez MD [address] [facility] [address] [place] [address] PCP - General Adolescent Medicine 12/08/16 documented as of this encounter
--- OUTSIDE RECORDS SUMMARY | 2025-05-02 13:46 | XMS_ITS | Encounter Summary ---
Author Organization [facility] Address [address] [place] [address] Care Team Providers Care Hand Nailer Name Role Phone Marc Rodriguez MD Primary Care Provider [phone] Encounter Details Date Type Department Care Team (Late st Contact Info) Description 12/12/2015 External CPT II OIL AND GAS RECRUITER - [facility] Social History Tobacco Use [...] & CRITICAL CARE MEDICINE [address] [place] [address] 06/26/2025 10:00 AM EST Office Visit [facility] PULMONARY & CRITICAL CARE MEDICINE [address] [place] [address] Kaitlin Joiner APRN [address] [place] [address] 09/12/2025 10:00 AM EST Office Visit [facility] CARDIOLOGY [address] [facility] [address] [place] [address] Jimmy Duncan MD 3000 [facility] [address] [place] [address] documented as of this encounter Visit Diagnoses [...] documented as of this encounter Care Teams Hand Nailer Relationship Specialty Start Date End Date Marc Rodriguez MD [address] [facility] [address] [place] [address] PCP - General Adolescent Medicine 12/08/16 documented as of this encounter
--- OUTSIDE RECORDS SUMMARY | 2025-05-02 13:46 | XMS_ITS ---
Author Organization [facility] Address [address] [place] [address] Care Team Providers Care Automotive Painter Helper Name Role Phone Marc Rodriguez MD Primary Care Provider [phone] Asthma - External Fill Status:Enrolled (Active) Start date:05/10/2024 Enrollment date:05/10/2024 Enrollment reason:Identified as being on target medication Current support & services provided:Refill Coordination , Benefits Investigation, Prior Authorization, External Pharmacy Dispensing Linked medications:Dupilumab () Linked problems:Severe persistent asthma without complication (Active) Continued Care and Services Coordination
--- OUTSIDE RECORDS SUMMARY | 2025-05-02 13:46 | XMS_ITS | Clinical Summary ---
Author Organization [facility] Address [address] [place] [address] Care Team Providers Care Building Services Engineer Name Role Phone Marc Rodriguez MD Primary Care Provider [phone] Edgardo Zuñiga MD Unavailable [phone] Giulia Briggs Unavailable [phone] Edgardo Zuñiga MD Unavailable [phone] Esther Mathew Unavailable [phone] Allergies Active Allergy Reactions Criticality Noted Date [...] spondylolis thesis 03/18/2024 Motor speech disorder 02/10/2022 Obesity (BMI 30.0-34.9) 10/17/2021 Laryngopharyngeal reflux 10/01/[address] 08/13/2021 Cervical radiculopathy 07/31/2021 Hypothyroidism 07/30/2021 CKD (chronic kidney disease) 07/30/2021 Cervical cord compression with myelopathy 2020 Overview (07/02/2021): Added automatically from request for surgery [id number] Chronic bilateral low back pain with bilateral s ciatica 04/22/2021 Overview (04/22/2021): Added automatically from request for surgery [id number] Environmental and seasonal allergies 11/12/2020 Restless legs syndrome 11/12/2020 Adrenal insufficiency 02/22/2019 Overview (03/04/2021): chronic steroids - Cortef Unsteady gait 12/20/2018 Fibromyalgia 08/31/2018 Rheumatoid arthritis 08/31/2018 Glenohumeral arthritis 07/22/2018 Chronic allergic rhinitis 12/24/2017 Gastroesophageal reflux disease 12/24/2017 Moderate persistent asthma 12/24/2017 Arm pain 12/21/2017 DDD (degenerative disc disease), cervical 2017 Neck pain 12/21/2017 Dermatitis due to unknown cause 06/19/2017 Balance problem 04/24/2016 Impaired cognition 02/14/2016 Memory loss 02/05/2016 Kidney stone 07/18/2015 Resolved Problems Problem Noted Date Diagnosed Date Resolved Date Total self-care deficit 02/10/2022 092 08/2024 Lumbar stenosis with neurogenic claudication 10/18/2021 Decreased activity tolerance 07/30/2021 04/23/2025 Lumbosacral radiculopathy at L5 04/22/2021 10/18/2021 Overview (04/22/2021): Added automatically from request for surgery [id number] Spinal stenosis, lumbar clara on without neurogenic claudication 04/22/2021 10/18/2021 Overview (04/22/2021): Added automatically from request for surgery [id number] Spondylolisthesis at L4-L5 level 04/22/2021 10/18/2021 Overview (04/22/2021): Added automatically from request for surgery [id number] S/P insertion of intrathecal pump 10/18/2018 04/23/2025 AVN (avascular necrosis of bone) 08/30/2018 07/30/2021 Rotator cuff arthropathy 08/30/2018 Decreased range of motion of shoulder 07/22/2018 07/30/2021 Humeral fracture 04/01/2018 07/30/2021 Biceps tendonitis 04/01/2018 07/30/2021 Rotator cuff dysfunction 04/01/2018 Purpura 06/19/2017 07/30/2021 Itching 06/02/2017 07/30/2021 Status migrainosus 08/08/2015 Encounters Date Type Department Care Team Description 04/17/2025 Refill [place] [facility] [address], [address] [place] [address] Esther Mathew, JAMES 04/07/2025 Telephone [facility] [address] [place] [address] Suzan Galindo DO HCN Clinical Concern/Question 03/10/2025 Orders Only [facility] [address] [place] [address] Suzan Galindo, DO 03/10/2025 Refill [facility] [address] [place] [address] Suzan Galindo, DO 03/10/2025 Results Follow-Up [facility] [address] [place] [address] Suzan Galindo, DO 03/09/2025 1:20 PM EDT Office Visit [facility] [address] [place] [address] Suzan Galindo, DO High risk medication use (Primary Dx); Total self-care deficit; Impaired cognition; Cervical cord compression with myelopathy ([facility]) 03/09/2025 Travel 03/08/2025 2:06 PM EDT - 03/08/2025 11:59 PM EDT Hospital Encounter [facility] Radiology [address] [place] [address] S/P lumbar fusion Discharge Disposition: Home or Self Care 03/08/2025 1:40 PM EDT Office Visit [facility] Orthopaedic Surgery & Sports Medicine [address], [address] [place] [address] Edgardo Zuñiga MD S/P lumbar fusion (Primary Dx) 03/08/2025 Travel 03/07/2025 Orders Only [facility] [address], [address] [place] [address] Edgardo Zuñiga MD S/P lumbar fusion (Primary Dx) 02/28/2025 Refill [facility] [address], [address] [place] [address] Esther Mathew, PA from Last 3 Months [...] Description 05/25/2025 2:10 PM EDT Office Visit [place] [facility] [address], [address] [place] [address] Esther Mathew PA [address] [place] [address] 09/11/2025 11:50 AM EST Office Visit [facility] [address] [place] [address] Suzan Galindo DO [address] [place] [address] 03/07/2026 9:20 AM EDT Office Visit [facility] Orthopaedic Surgery & Sports Medicine [address] [place] [address] Edgardo Zuñiga MD [address] [place] [address] Health Maintenance Due Date Last Done Comments [facility]-Bone Density Scan 1955 [facility]-Medicare Annual Wellness (AWV) 1955 [facility]-/Child/Adol SDOH Screenings 1955 CT Colonography 1998 Colonoscopy 1998 FIT-DNA 1998 FIT 1998 FOBT 1998 Sigmoidoscopy 1998 [facility]-Colorectal Cancer Screening 1998 [facility]-Breast Cancer Screening 11/01/2003 [facility]- SDOH Screenings 11/11/2024 [facility]-Adult SDOH Screenings 11/11/2024 05/13/2024 [id number] Vaccine ( season) 2025 07/15/2023, 04/30/2022, 12/19/2021, [...] this topic Medical Devices Implanted Type Area Bioinformatics Software Engineer Device Identifier Shelf Expiration Date Model / Serial / Lot Cif Ui H 8mm 8deg S - [id number] Implanted:Qty : 1 on 07/31/2021 by Edgardo Zuñiga MD at [facility] Cage N/A: Spine Cervical DePuy Spine Sales LP-[id number] 01/31/2024 [id number] / / [id number] Synchromed Iii Implanted:Qty : 1 on 10/09/2023 Pain Pump Abdomen Medtronic 8667-20 / [id number] / One Level Plate, 12mm - S. - [id number] Implanted:Qty : 1 on 07/31/2021 by Edgardo Zuñiga MD at [facility] Plate N/A: Spine Cervical DePuy Spine Sales LP-[id number] 07/31/2021 [id number] / . / Pre-Lordosed Joe W/ Line 40mm - [id number] Implanted:Qty : 2 on 10/16/2021 by Edgardo Zuñiga MD at [facility] Joe Spine Lumbar DePuy Spine Sales LP-[id number] 10/16/2022 [id number] / / Self Drilling Screw 16mm - S. - [id number] Implanted:Qty : 4 on 07/31/2021 by Edgardo Zuñiga MD at [facility] Screw N/A: Spine Cervical DePuy Spine Sales LP-[id number] 07/31/2022 [id number] / . / Screw 5.5mm Viper Ti Fen Crtcl Polyax 8mm X 50mm - [id number] Implanted:Qty : 4 on 10/16/2021 by Edgardo Zuñiga MD at [facility] Screw Spine Lumbar [employer]uy Spine Sales -[id number] 10/16/2022 [id number] / / Spinal Cord Stimulator Spinal Cord Stimulator [facility] [employer] [id number] / [id number] / Description:LEADS (2): MODEL # 2218-50 Graft Vivigen 1cc - [id number] Implanted:Qty : 1 on 07/31/2021 by Edgardo Zuñiga MD at [facility]-[id number] 07/15/2022 BL-1500-001 / / [id number] Graft Vivigen 5cc - [id number] Implanted:Qty : 1 on 10/16/2021 by Edgardo Zuñiga MD at [facility] Spine Lumbar [facility]-[id number] 10/11/2022 BL-1500-002 / / [id number] Post Ibf Ui H 12mm 8deg 24/04 - [id number] Implanted:Qty : 1 on 10/16/2021 by Edgardo Zuñiga MD at [facility] Spine Lumbar DePuy Spine Sales LP-[id number] 02/01/2022 [id number] / / Post Ibf Ui H 12mm 8deg 24/04 - [id number] Implanted:Qty : 1 on 10/16/2021 by Edgardo Zuñiga MD at [facility] Spine Lumbar DePuy Spine [employer] LP-[id number] 05/02/2025 [id number] / / Single Inner Setscrew - [id number] Implanted:Qty : 4 on 10/16/2021 by Edgardo Zuñiga MD at [facility] Spine Lumbar DePuy Spine Sales LP-[id number] 10/16/2022 [id number] / / Graft Vivigen 15cc - [id number] - [id number] Implanted:Qty : 1 on 03/18/2024 by Edgardo Zuñiga MD at [facility] N/A: Spine Lumbar [facility]-[id number] 02/02/2025 -[id number] -[id number] / [id number] / [id number] Screw 5.5mm Viper Ti Fen Crtcl Polyax 7mm X 50mm - [id number] Implanted:Qty : 3 on 03/18/2024 by Edgardo Zuñiga MD at [facility] N/A: Spine Lumbar DePuy Spine Sales LP-[id number] / / Single Inner Setscrew - [id number] Implanted:Qty : 6 on 03/18/2024 by Edgardo Zuñiga MD at [facility] N/A: Spine Lumbar DePuy Spine Sales LP-272265 [id number] / / Pre-Lordosed Joe W/ Line 65mm - [id number] Implanted:Qty : 2 on 03/18/2024 by Edgardo Zuñiga MD at [facility] N/A: Spine Lumbar DePuy Spine Sales LP-[id number] / / Procedures Procedure Name Priority Date/Time [...] - 99 mg/dL 03/09/2025 5:10 PM EDT [facility] BUN, Plasma 14 8 - 23 mg/dL 03/09/2025 5:10 PM EDT [facility] Creatinine, Plasma 0.73 0.60 - 1.10 mg/dL 03/09/2025 5:10 PM EDT [facility] BUN/Creatinine Ratio 19 03/09/2025 5:10 PM EDT [facility] Sodium, Plasma 144 136 - 145 mmol/L 03/09/2025 5:10 PM EDT [facility] Potassium, Plasma 5.1(H) 3.6 - 4.9 mmol/L 03/09/2025 5:10 PM EDT [facility] Chloride, Plasma 106 97 - 107 mmol/L 03/09/2025 5:10 PM EDT [facility] CO2, Plasma 28 22 - 29 mmol/L 03/09/2025 5:10 PM EDT [facility] Anion Gap 10 6 - 16 mmol/L 03/09/2025 5:10 PM EDT [facility] Total Calcium, Plasma 9.8 8.9 - 10.2 mg/dL 03/09/2025 5:10 PM EDT [facility] Total Protein 6.6 6.3 - 7.9 g/dL 03/09/2025 5:10 PM EDT [facility] Albumin, Plasma 3.8 3.5 - 5.2 g/dL 03/09/2025 5:10 PM EDT [facility] AST, Plasma 77(H) 10 - 35 U/L 03/09/2025 5:10 PM EDT [facility] ALT, Plasma 38(H) 10 - 35 U/L 03/09/2025 5:10 PM EDT [facility] Alkaline Phosphatase, Plasma 140 46 - 142 U/L 03/09/2025 5:10 PM EDT [facility] Total Bilirubin, Plasma 0.7 0.2 - 1.1 mg/dL 03/09/2025 5:10 PM EDT [facility] eGFRcr 88.0 mL/min/1.7 3m*2 03/09/2025 5:10 PM EDT [facility] Comment:Reported eGFRcr in m L/min/1.73m2 is based the CKD-EPI 2020 equation that does not use a race coefficient. Blood Venous blood specimen / Unknown Venipuncture / Unknown 03/09/2025 2:40 PM EDT 03/09/2025 2:40 PM EDT us Suzan Sanchez DO LAB BLOOD ORDERABLES Final Result [facility] [address] [place] [address] * XR Lumbar Spine 4+ Views w [...] Antibody Negative Negative 04/25/2024 11:46 PM EDT [facility] Blood Venous blood specimen / Unknown Venipuncture / Unknown 04/25/2024 10:55 PM EDT 04/25/2024 11:05 PM EDT us Yelena Mcqueen MD LAB BLOOD ORDERABLES Final Res ult [facility] [address] [place] [address] from Last 3 Months or Most Recently Relevant to Health Maintenance Insurance MEDICARE ANTHEM Advance Directives * Full Code (Latest Code [...] Patient has decision-making capacity? Yes Care Teams Building Services Engineer Relationship Specialty Start Date End Date Marc Rodriguez MD [address] [place] [address] PCP - General 12/14/20 Edgardo Zuñiga MD [address] [place] [address] Surgeon Neurosurgery 03/04/21 Giulia Briggs PA [address] [place] [address] Physician Event Designer Neurosurgery 07/03/21 Edgardo Zuñiga MD [address] [address] Surgeon Neurosurgery 09/16/21 Esther Mathew PA [address] [address] Physician Event Designer Neurology 11/19/22
--- OUTSIDE RECORDS SUMMARY | 2025-05-02 13:46 | XMS_ITS | Encounter Summary ---
[facility] Organization [facility] Address [address] [place] [address] Care Team Providers Care International Operations Manager Name Role Phone Marc Rodriguez MD Primary Care Provider [phone] Encounter Details Date Type Department Care Team (Late st Contact Info) Description 08/20/2015 External CPT II BALLISTIC TECHNICIAN - [facility] Social History Tobacco [...] & CRITICAL CARE MEDICINE [address] [place] [address] 06/26/2025 10:00 AM EST Office Visit [facility] PULMONARY & CRITICAL CARE MEDICINE [address] [place] [address] Kaitlin Joiner, ASSISTANT PROSECUTING ATTORNEY [address] [place] [address] 09/12/2025 10:00 AM EST Office Visit [facility]IOLOGY [address] [place] [address] Jimmy Duncan MD [address] [facility] [address] [place] [address] documented as of this encounter Visit Diagnoses [...] documented as of this encounter Care Teams International Operations Manager Relationship Specialty Start Date End Date Marc Rodriguez MD [address] [facility] [address] [place] [address] PCP - General Adolescent Medicine 12/08/16 documented as of this encounter
--- OUTSIDE RECORDS SUMMARY | 2025-05-02 13:46 | XMS_ITS | Clinical Summary ---
Author Organization [facility] Address [address] [place] [address] Care Team Providers Care Senior Oracle Adf Developer Name Role Phone Marc Rodriguez MD Primary Care Provider [phone] Allergies Active Allergy Reactions Criticality Noted Date [...] Each Nare route Daily. 18 mL 02/25/20 Active nystatin (MYCOSTATIN) 100,000 unit/mL suspension Take 5 mL by mouth 4 (Four) Times a Day. 280 mL 04/16/20 Active acetaminophen (TYLENOL) 500 MG tablet Take 2 tablets by mouth Every 6 (Six) Hours As Needed. Active denosumab (PROLIA) 60 MG/ML solution prefilled syringe syringe Inject 1 mL under the skin into the appropriate area as directed. Active montelukast (SINGULAIR) 10 MG tabletIndicatio ns:Chronic allergic rhinitis Take 1 tablet by mouth every night at bedtime. 30 tablet 01/26/20 24 Active aspirin 81 MG chewable tablet [...] (Two) Times a Day. 03/09/20 25 Active Breo Ellipta 100-25 MCG/ACT aerosol powderIndicatio ns:Severe persistent asthma without complication Inhale 1 puff by mouth once daily 60 each 3 04/24/20 25 Active Fluticasone Furoate-Vilante rol 100-25 MCG/ACT aerosol powderIndicatio ns:Severe persistent asthma without complication Inhale 1 puff Daily. 60 each 2 03/09/20 24 025 Discontinued Active Problems Problem Noted Date [...] reassessed in 6 months. Discussed with patient [employer] and [employer] provide detailed guidelines for accurate [...] (08/27/2021): Added automatically from request for surgery [id number] Lumbosacral radiculopathy at L5 04/22/2021 Overview (08/27/2021): Added automatically from request for surgery [id number] Chronic bilateral low back pain with bilateral s ciatica 04/22/2021 Overview (08/27/2021): Added automatically from request for surgery [id number] Spinal stenosis, lumbar clara on without neurogenic claudication 04/22/2021 Overview (08/27/2021): Added automatically from request for surgery [id number] Environmental and seasonal allergies 11/12/2020 Restless legs syndrome 11/12/2020 Adrenal insufficiency 02/22/2019 Overview (02/22/2019): chronic steroids - Cortef Rheumatoid arthritis 08/31/2018 Fibromyalgia 08/31/2018 Chronic cough 12/24/2017 Severe persistent asthma without complication Chronic allergic rhinitis 12/24/2017 Gastroesophageal reflux disease 12/24/2017 Encounters Date Type Department Care Team Description 04/22/2025 Refill [facility] PULMONARY & CRITICAL CARE MEDICINE [address] [place] [address] Kaitlin Joiner APRN Severe persistent asthma without complication 03/13/2025 9:45 AM EDT Office Visit [facility] CARDIOLOGY [address] [place] [address] [address] [place] [address] Jimmy Duncan MD Primary hypertension (Primary Dx); Hyperlipidemia LDL goal <100; Chronic venous insufficiency of lower extremity 03/13/2025 Patient rounding ([facility] only) [facility] CARDIOLOGY [address] [facility] [address] [place] [address] Jimmy Duncan MD 03/13/2025 Travel 03/07/2025 Telephone [facility] CARDIOLOGY [address] [facility] [address] [place] [address] QAZI - LAB ORDERS 03/06/2025 Telephone [facility] CARDIOLOGY [address] [facility] [address] [place] [address] Jimmy Duncan MD 02/10/2025 Telephone [facility] CARDIOLOGY [address] [facility] [address] [place] [address] Jimmy Duncan MD Med Refill 02/10/2025 Telephone [facility] CARDIOLOGY [address] [facility] [address] [place] [address] Jimmy Duncan MD 02/10/2025 Telephone [facility] CARDIOLOGY [address] [facility] [address] [place] [address] QAZI - SCHEDULING [...] & CRITICAL CARE MEDICINE [address] [place] [address] 06/26/2025 10:00 AM EST Office Visit [facility] PULMONARY & CRITICAL CARE MEDICINE [address] [place] [address] Kaitlin Joiner, SUPERVISOR AGRICULTURAL EDUCATION [address] [place] [address] 09/12/2025 10:00 AM EST Office Visit [facility] CARDIOLOGY [address] [facility] [address] [place] [address] Jimmy Duncan MD [address] [facility] [address] [place] [address] Health Maintenance Due Date Last Done Comments [...] PCP: Marc Rodriguez MD Date: 03/13/2025 [facility] C[facility]OLOGY [address] [facility] [address] [facility] [address] Chief Complaint Patient presents with Hypertension Hyperlipidemia [...] Procedure Laterality Date APPENDECTOMY 1973 BREAST BIOPSY [id number] multiple CARDIAC CATHETERIZATION 03/13/2009 AE @ [facility]- [...] reassessed in 6 months. Discussed with patient [employer] and [employer] provide detailed guidelines for accurate blood [...] any significant symptoms or [facility] [place] [facility] if possible. Jimmy Duncan MD, FACC,[facility] Part of this note may be an electronic medical transcription editor/translation of spokenlanguage to printed text using the lifeaction gamesation System. us Jimmy Duncan MD ECG ORDERABLES Final Result * LABS SCANNED (03/08/2025) Only the most recent of3 resultswithin the time period is included. Jimmy Duncan MD LAB BLOOD ORDERABLES Final Resu lt from Last 3 Months Insurance MEDICARE A & B Member Subscriber Plan / Payer (Ef fective 2014-Present) Name:Sandie Frank Member ID:[id number] Relation to Subscriber:Self Name:Sandie Frank Subscriber ID:[id number] Payer ID:[id number] Group ID:Not on file Type:Not on file Address: [facility] [id number] [address] Care Teams Senior Oracle Adf Developer Relationship Specialty Start Date End Date Marc Rodriguez MD [address] [facility] [address] [place] [address] PCP - General Adolescent Medicine 12/08/16
--- OUTSIDE RECORDS SUMMARY | 2025-05-02 13:46 | XMS_ITS | Encounter Summary ---
Author Organization [facility] Address [address] [place] [address] Care Team Providers Care Cutting Torch Operator Name Role Phone Marc Rodriguez MD Primary Care Provider [phone] Edgardo Zuñiga MD Unavailable [phone] Giulia Briggs Unavailable [phone] Edgardo Zuñiga MD Unavailable [phone] Esther Mathew Unavailable [phone] Reason for Visit * Reason Comments Med Refill Encounter Details Date Type Department Care Team (Late st Contact Info) Description 04/17/2025 Refill [place] [facility] [address] [place] [address] Esther Mathew PA [address] [place] [address] Social History Tobacco Use Types [...] the past 12 months has th e Synerscope, gas, oil, or water [employer] threatened to shut off services in your [...] Description 05/25/2025 2:10 PM EDT Office Visit [facility] [address] [place] [address] Esther Mathew PA [address] [place] [address] 09/11/2025 11:50 AM EST Office Visit [facility] [address] [place] [address] Suzan Galindo DO [address] [place] [address] 03/07/2026 9:20 AM EDT Office Visit [facility] Orthopaedic Surgery & Sports Medicine [address] [place] [address] Edgardo Zuñiga MD [address] [place] [address] documented as of this encounter [...] documented as of this encounter Care Teams Cutting Torch Operator Relationship Specialty Start Date End Date Marc Rodriguez MD [address] [place] [address] PCP - General 12/14/20 Edgardo Zuñiga MD [address] [place] [address] Surgeon Neurosurgery 03/04/21 Giulia Briggs PA [address] [place] [address] Physician Patient Safety Sitter Neurosurgery 07/03/21 Edgardo Zuñiga MD [address] [place] [address] Surgeon Neurosurgery 09/16/21 Esther Mathew PA [address] [place] [address] Physician Patient Safety Sitter Neurology 11/19/22 documented as of this encounter
--- OUTSIDE RECORDS SUMMARY | 2025-05-02 13:46 | XMS_ITS | Encounter Summary ---
[facility] Organization [facility] Address [address] [place] [address] Care Team Providers Care Tobacco Shaker Name Role Phone Marc Rodriguez MD Primary Care Provider Encounter Details Date Type Department Care Team (Late st Contact Info) Description 10/10/2014 External CPT II BATH SOLUTION MAKER - [facility] Social History Tobacco Use [...] [facility] [address] [place] [address] 06/26/2025 10:00 AM EST Office Visit [facility] PULMONARY & CRITICAL CARE MEDICINE [address] [place] [address] Kaitlin Joiner, REAL ESTATE LISTING CONSULTANT [address] [place] [address] 09/12/2025 10:00 AM EST Office Visit [facility] CARDIOLOGY [address] [place] [address] Jimmy Duncan MD [address] [facility] [address] [place] [address] documented as of this encounter Visit Diagnoses [...] documented as of this encounter Care Teams Tobacco Shaker Relationship Specialty Start Date End Date Marc Rodriguez MD [address] [facility] [address] [place] [address] PCP - General Adolescent Medicine 12/08/16 documented as of this encounter
--- OUTSIDE RECORDS SUMMARY | 2025-05-02 13:46 | XMS_ITS | Encounter Summary ---
[facility] Address [address] [place] [address] Care Team Providers Care Machine Applicator Cementer Name Role Phone Marc Rodriguez MD Primary Care Provider Encounter Details Date Type Department Care Team (Late st Contact Info) Description 01/11/2015 External CPT II VICE PRESIDENT SAFETY - [facility] Social History Tobacco Use [...] PULMONARY & CRITICAL CARE MEDICINE [address] [place] [address] 06/26/2025 10:00 AM EST Office Visit [facility] PULMONARY & CRITICAL CARE MEDICINE [address] [place] [address] Kaitlin Joiner, CHLORINATOR [address] [place] [address] 09/12/2025 10:00 AM EST Office Visit [facility] CARDIOLOGY [address] [place] [address] Jimmy Duncan MD [address] [facility] [address] [place] [address] documented as of this encounter Visit Diagnoses [...] documented as of this encounter Care Teams Machine Applicator Cementer Relationship Specialty Start Date End Date Marc Rodriguez MD [address] [facility] [address] [place] [address] PCP - General Adolescent Medicine 12/08/16 documented as of this encounter
--- OUTSIDE RECORDS SUMMARY | 2025-05-02 13:46 | XMS_ITS | Encounter Summary ---
Author Organization [facility] Address [address] [place] [address] Care Team Providers Care Metal Framer Name Role Phone Marc Rodriguez MD Primary Care Provider [phone] Encounter Details Date Type Department Care Team (Late st Contact Info) Description 10/16/2015 External CPT II CONTINUITY WRITER - [facility] Social History Tobacco Use [...] PULMONARY & CRITICAL CARE MEDICINE [address] [place] [address] 06/26/2025 10:00 AM EST Office Visit [facility] PULMONARY & CRITICAL CARE MEDICINE [address] [place] [address] Kaitlin Joiner, CARDIAC SONOGRAPHER [address] [place] [address] 09/12/2025 10:00 AM EST Office Visit [facility]ARDIOLOGY [address] [facility] [address] [place] [address] Jimmy Duncan MD 3000 [facility] [address] [place] [address] documented as of this encounter Visit Diagnoses [...] documented as of this encounter Care Teams Metal Framer Relationship Specialty Start Date End Date Marc Rodriguez MD [address] [facility] [address] [place] [address] PCP - General Adolescent Medicine 12/08/16 documented as of this encounter
--- OUTSIDE RECORDS SUMMARY | 2025-05-02 13:46 | XMS_ITS | Encounter Summary ---
[facility] Organization [facility] Address [address] [place] [address] Care Team Providers Care Manufacturing Engineering Technologist Name Role Phone Marc Rodriguez MD Primary Care Provider [phone] Encounter Details Date Type Department Care Team (Late st Contact Info) Description 11/13/2014 External CPT II DRILL RIG OPERATOR HELPER - [facility] Social History Tobacco Use [...] PULMONARY & CRITICAL CARE MEDICINE [address] [place] [address] 06/26/2025 10:00 AM EST Office Visit [facility] PULMONARY & CRITICAL CARE MEDICINE [address] [place] [address] Kaitlin Joiner, KENNEL SUPERVISOR [address] [place] [address] 09/12/2025 10:00 AM EST Office Visit [facility] CARDIOLOGY [address] [place] [address] Jimmy Duncan MD 3000 [facility] [address] [place] [address] documented as of this encounter Visit Diagnoses [...] documented as of this encounter Care Teams Manufacturing Engineering Technologist Relationship Specialty Start Date End Date Marc Rodriguez MD 1210 [facility] [address] [place] [address] PCP - General Adolescent Medicine 12/08/16 documented as of this encounter
--- OUTSIDE RECORDS SUMMARY | 2025-05-02 13:46 | XMS_ITS | Encounter Summary ---
[facility] Address [address] [place] [address] Care Team Providers Care Structures Engineer Name Role Phone Marc Rodriguez MD Primary Care Provider [phone] Encounter Details Date Type Department Care Team (Late st Contact Info) Description 06/18/2015 External CPT II MEDICAL RECORD CLERK - [facility] Social History Tobacco Use [...] PULMONARY & CRITICAL CARE MEDICINE [address] [place] [address] 06/26/2025 10:00 AM EST Office Visit [facility] PULMONARY & CRITICAL CARE MEDICINE [address] [place] [address] Kaitlin Joiner, BUSINESS SUPPORT [address] [place] [address] 09/12/2025 10:00 AM EST Office Visit [facility] CARDIOLOGY [address] [place] [address] Jimmy Duncan MD 3000 [facility] [address] [place] [address] documented as of this encounter Visit Diagnoses [...] documented as of this encounter Care Teams Structures Engineer Relationship Specialty Start Date End Date Marc Rodriguez MD 1210 [facility] [address] [place] [address] PCP - General Adolescent Medicine 12/08/16 documented as of this encounter
--- OUTSIDE RECORDS SUMMARY | 2025-05-02 13:46 | XMS_ITS | Clinical Summary ---
Author Organization [facility] Address [address] [facility] [address] [place] [address] Care Team Providers Care Carousel Attendant Name Role Phone Unavailable Primary Care [...] Payer (Ef fective 2014-Present) Name:Sandie Frank Member ID:[id number] Relation to Subscriber:Self Name:Sandie Frank Subscriber ID:[id number] Payer ID:[id number] Group ID:Not on file Type:Medicare Address: [address]
--- OUTSIDE RECORDS SUMMARY | 2025-05-02 13:46 | XMS_ITS | Encounter Summary ---
Author Organization [facility] Address [address] [place] [address] Care Team Providers Care Compressor Station Chief Engineer Name Role Phone Marc Rodriguez MD Primary Care Provider [phone] Encounter Details Date Type Department Care Team (Late st Contact Info) Description 07/31/2015 External CPT II COUNSELING PROGRAM LEADER - [facility] Social History Tobacco Use [...] Description 06/26/2025 9:30 AM EST Procedure visit [facility] PULMONARY & CRITICAL CARE MEDICINE [address] [place] [address] 06/26/2025 10:00 AM EST Office Visit [facility] PULMONARY & CRITICAL CARE MEDICINE [address] [place] [address] Kaitlin Joiner, SOFTWARE COMPUTER SPECIALIST [address] [place] [address] 09/12/2025 10:00 AM EST Office Visit [facility] CARDIOLOGY [address] [place] [address] Jimmy Duncan MD 3000 [facility] [address] [place] [address] documented as of this encounter Visit Diagnoses [...] documented as of this encounter Care Teams Compressor Station Chief Engineer Relationship Specialty Start Date End Date Marc Rodriguez MD [address] [facility] [address] [place] [address] PCP - General Adolescent Medicine 12/08/16 documented as of this encounter
--- OUTSIDE RECORDS SUMMARY | 2025-05-02 13:46 | XMS_ITS | Encounter Summary ---
Author Organization [facility] Address [address] [place] [address] Care Team Providers Care Telephone Service Representative Name Role Phone Marc Rodriguez MD Primary Care Provider [phone] Encounter Details Date Type Department Care Team (Late st Contact Info) Description 03/06/2025 Telephone [facility] CARDIOLOGY [address] [facility] [address], [place] [address] Jimmy Duncan MD 3000 [facility] [address] [place] [address] Social History Tobacco Use Types Packs/Day Years [...] 03/06/2025 3:21 PM EDT Faxed orders to [phone] * Telephone Encounter - Keke Aguilar RegSched Rep - 03/06/2025 1:22 PM EDT Caller: Sandie Frank Relationship: Self Best call back number: . Telephone Information: What orders are you requesting (i.e. lab or imaging): LAB ORDERS In what timeframe would the patient need to come in: ASHLEY Where will you receive your lab/imaging services: [facility] Additional notes: PT ASKED IF OFFICE WILL PLEASE FAX LAB ORDERS TO THE MEDICAL CENTER. PT DOESN'T HAVE FAX NUMBER. documented in this encounter Plan of Treatment Upcoming Encounters Date Type Department Care Team (Late st Contact Info) Description 06/26/2025 9:30 AM EST Procedure visit [facility] PULMONARY & CRITICAL CARE MEDICINE [address] [facility] [place] [address] 06/26/2025 10:00 AM EST Office Visit [facility] PULMONARY & CRITICAL CARE MEDICINE [address] [facility] [place] [address] Kaitlin Joiner APRN [address] [place] [address] 09/12/2025 10:00 AM EST Office Visit [facility] CARDIOLOGY [address] [facility] [address] [place] [address] Jimmy Duncan MD 3000 [facility] [address] [place] [address] Scheduled Orders Name Type Priority Associated Diagnoses [...] hypertension documented in this encounter Care Teams Telephone Service Representative Relationship Specialty Start Date End Date Marc Rodriguez MD 1210 [facility] [address] [facility] [address] PCP - General Adolescent Medicine 12/08/16 documented as of this encounter
--- OUTSIDE RECORDS SUMMARY | 2025-05-02 13:46 | XMS_ITS | Encounter Summary ---
Author Organization [facility] Address [address] [place] [address] Care Team Providers Care Industrial Staff Nurse Name Role Phone Marc Rodriguez MD Primary Care Provider [phone] Encounter Details Date Type Department Care Team [...] Description 06/26/2025 9:30 AM EST Procedure visit [facility] PULMONARY & CRITICAL CARE MEDICINE [address] [facility] [place] [address] 06/26/2025 10:00 AM EST Office Visit [facility] PULMONARY & CRITICAL CARE MEDICINE [address] [facility] [place] [address] Kaitlin Joiner, TORI [address] [place] [address] 09/12/2025 10:00 AM EST Office Visit [facility] CARDIOLOGY [address] [facility] [address] [place] [address] Jimmy Duncan MD 3000 [facility] [address] [place] [address] documented as of this encounter Visit Diagnoses Not on filedocumented in this encounter Care Teams Industrial Staff Nurse Relationship Specialty Start Date End Date Marc Rodriguez MD 12[address] [facility] [address] [place] [address] PCP - General Adolescent Medicine 12/08/16 documented as of this encounter
--- OUTSIDE RECORDS SUMMARY | 2025-05-02 13:46 | XMS_ITS | Encounter Summary ---
Author Organization [facility] Address [address] [place] [address] Care Team Providers Care Grocery Team Member Name Role Phone Marc Rodriguez MD Primary Care Provider [phone] Reason for Visit * Reason Comments Med Refill Encounter Details Date Type Department Care Team (Late st Contact Info) Description 04/22/[address] [facility] PULMONARY & CRITICAL CARE MEDICINE [address] [facility] [place] [address] Kaitlin Joiner, TECHNICAL REPORT WRITER [address] [place] [address] Severe persistent asthma without complication Social History Tobacco Use Types Packs/Day Years [...] INFIRMARY PULMONARY & CRITICAL CARE MEDICINE [address] [facility] [place] [address] 06/26/2025 10:00 AM EST Office Visit [facility] PULMONARY & CRITICAL CARE MEDICINE [address] [place] [address] Kaitlin Joiner, TECHNICAL REPORT WRITER [address] [place] [address] 09/12/2025 10:00 AM EST Office Visit [facility] CARDIOLOGY [address] [facility] [address] [place] [address] Jimmy Duncan MD 3000 [facility] [address] [place] [address] documented as of this encounter Visit Diagnoses Diagnosis Severe persistent asthma without complication documented in this encounter Care Teams Grocery Team Member Relationship Specialty Start Date End Date Marc Rodriguez MD 1210 [facility] [address] [facility] [address] [place] [address] PCP - General Adolescent Medicine 12/08/16 documented as of this encounter
--- OUTSIDE RECORDS SUMMARY | 2025-05-02 13:46 | XMS_ITS | Encounter Summary ---
Author Organization [facility] Address [address] [place] [address] Care Team Providers Care Mud Grinder Name Role Phone Marc Rodriguez MD Primary Care Provider [phone] Encounter Details Date Type Department Care Team (Late st Contact Info) Description 03/13/2025 Patient rounding ([facility]) [facility] CARDIOLOGY [address] [facility] [address], [place] [address] Jimmy Duncan MD 3000 [facility] [address] [place] [address] Social History Tobacco Use Types Packs/Day Years [...] is Pat Davis, and I am the Parking Technician for [facility] Cardiology [place]. I would like to thank you for choosing us to be your banding machine operator. If you do not mind, I would [...] with your visit with us at a [facility] [place]? Over the next few days, you will be receiving a Patient Experience Survey. Please consider taking the survey, as it helps Je[employer] Witness in improving their patient care. Thank you [...] CENTER PULMONARY & CRITICAL CARE MEDICINE [address] [place] [address] 06/26/2025 10:00 AM EST Office Visit [facility] PULMONARY & CRITICAL CARE MEDICINE [address] [place] [address] Kaitlin Joiner APRN [address] [place] [address] 09/12/2025 10:00 AM EST Office Visit [facility] CARDIOLOGY [address] [facility] [address] [place] [address] Jimmy Duncan MD 3000 [facility] [address] [place] [address] documented as of this encounter Visit Diagnoses Not on filedocumented in this encounter Care Teams Mud Grinder Relationship Specialty Start Date End Date Marc Rodriguez MD 1210 [facility] [address] [facility] [address] [place] [address] PCP - General Adolescent Medicine 12/08/16 documented as of this encounter
--- OUTSIDE RECORDS SUMMARY | 2025-05-02 13:46 | XMS_ITS | Encounter Summary ---
Author Organization [facility] Address [address] [place] [address] Care Team Providers Care Product Development Ecologist Name Role Phone Marc Rodriguez MD Primary Care Provider [phone] Encounter Details Date Type Department Care Team (Late st Contact Info) Description 12/03/2015 External CPT II YIELD ANALYST - [facility] Social History Tobacco [...] & CRITICAL CARE MEDICINE [address] [place] [address] 06/26/2025 10:00 AM EST Office Visit [facility] PULMONARY & CRITICAL CARE MEDICINE [address] [place] [address] Kaitlin Joiner APRN [address] [place] [address] 09/12/2025 10:00 AM EST Office Visit [facility] CARDIOLOGY [address] [facility] [address] [place] [address] Jimmy Duncan MD 3000 [facility] [address] [place] [address] documented as of this encounter Visit Diagnoses [...] documented as of this encounter Care Teams Product Development Ecologist Relationship Specialty Start Date End Date Marc Rodriguez MD 1210 [facility] [address] [place] [address] PCP - General Adolescent Medicine 12/08/16 documented as of this encounter
--- OUTSIDE RECORDS SUMMARY | 2025-05-02 13:46 | XMS_ITS | Encounter Summary ---
Author Organization [facility] Address [address] [place] [address] Care Team Providers Care Band Shover Name Role Phone Marc Rodriguez MD Primary Care Provider [phone] Encounter Details Date Type Department Care Team (Late st Contact Info) Description 02/10/2025 Telephone [facility] CARDIOLOGY [address] [facility] [address], [place] [address] Jimmy Duncan MD 3000 [facility] [address] [place] [address] Social History Tobacco Use Types Packs/Day Years [...] PULMONARY & CRITICAL CARE MEDICINE [address] [place] [address] 06/26/2025 10:00 AM EST Office Visit [facility] PULMONARY & CRITICAL CARE MEDICINE [address] [place] [address] Kaitlin Joiner, ASSISTANT TRACK AND FIELD COACH [address] [place] [address] 09/12/2025 10:00 AM EST Office Visit [facility] CARDIOLOGY [address] [facility] [address] [place] [address] Jimmy Duncan MD 3000 [facility] [address] [place] [address] documented as of this encounter Visit Diagnoses Not on filedocumented in this encounter Care Teams Band Shover Relationship Specialty Start Date End Date Marc Rodriguez MD 1210 [facility] [address] [facility] [address] [place] [address] PCP - General Adolescent Medicine 12/08/16 documented as of this encounter
--- OUTSIDE RECORDS SUMMARY | 2025-05-02 13:46 | XMS_ITS | Encounter Summary ---
Author Organization [facility] Address [address] [place] [address] Care Team Providers Care Scrub Tech Name Role Phone Marc Rodriguez MD Primary Care Provider [phone] Encounter Details Date Type Department Care Team (Late st Contact Info) Description 09/19/2015 External CPT II DIRECTOR OF MARKETING OPERATIONS - [facility] Social History Tobacco Use [...] Description 06/26/2025 9:30 AM EST Procedure visit [facility] PULMONARY & CRITICAL CARE MEDICINE [address] [place] [address] 06/26/2025 10:00 AM EST Office Visit [facility] PULMONARY & CRITICAL CARE MEDICINE [address] [place] [address] Kaitlin Joiner, HEALTH PSYCHOLOGIST [address] [place] [address] 09/12/2025 10:00 AM EST Office Visit [facility] CARDIOLOGY [address] [facility] [address] [place] [address] Jimmy Duncan MD 3000 [facility] [address] [place] [address] documented as of this encounter Visit Diagnoses [...] documented as of this encounter Care Teams Scrub Tech Relationship Specialty Start Date End Date Marc Rodriguez MD 1210 [facility] [address] [place] [address] PCP - General Adolescent Medicine 12/08/16 documented as of this encounter
--- OUTSIDE RECORDS SUMMARY | 2025-05-02 13:46 | XMS_ITS | Encounter Summary ---
Author Organization [facility] Address [address] [place] [address] Care Team Providers Care Desolderer Name Role Phone Marc Rodriguez MD Primary Care Provider [phone] Encounter Details Date Type Department Care Team (Late st Contact Info) Description 12/14/2018 External CPT II PASSENGER SERVICE REPRESENTATIVE - [facility] Social History Tobacco [...] PULMONARY & CRITICAL CARE MEDICINE [address] [place] [address] 06/26/2025 10:00 AM EST Office Visit [facility] PULMONARY & CRITICAL CARE MEDICINE [address] [place] [address] Kaitlin Joiner, CAFE OR RESTAURANT MANAGER [address] [place] [address] 09/12/2025 10:00 AM EST Office Visit [facility] CARDIOLOGY [address] [facility] [address] [place] [address] Jimmy Duncan MD 3000 [facility] [address] [place] [address] documented as of this encounter Visit Diagnoses [...] documented as of this encounter Care Teams Desolderer Relationship Specialty Start Date End Date Marc Rodriguez MD 1210 [facility] [address] [facility] [place] [address] PCP - General Adolescent Medicine 12/08/16 documented as of this encounter
--- OUTSIDE RECORDS SUMMARY | 2025-05-02 13:46 | XMS_ITS | Encounter Summary ---
Author Organization [facility] Address [address] [place] [address] Care Team Providers Care Case Worker Name Role Phone Marc Rodriguez MD Primary Care Provider [phone] Edgardo Zuñiga MD Unavailable [phone] Giulia Briggs Unavailable [phone] Edgardo Zuñiga MD Unavailable [phone] Esther Mathew Unavailable [phone] Reason for Visit * Reason Onset Date Comments Med Refill 07/05/2024 Encounter Details Date Type Department Care Team (Late st Contact Info) Description 07/05/2024 [facility]ill [place] [facility] [address] [place] [address] Esther Mathew PA [address] [place] [address] Social History Tobacco Use Types [...] the past 12 months has th e [employer], gas, oil, or water company threatened to [...] (Lifetime) No 10:00 AM EST Preeti Delacruz documented as of this encounter Miscellaneous Notes * Telephone Encounter - Esther Mathew PA - 07/06/2024 8:26 AM EST I will hold on the refill if this was stopped by another provider. documented in this encounter Plan of Treatment Upcoming Encounters Date Type Department Care Team (Late st Contact Info) Description 05/25/2025 2:10 PM EDT Office Visit [facility] [address] 1[address] [place] [address] Esther Mathew PA [address] [facility] [address] [place] [address] 09/11/2025 11:50 AM EST Office Visit [facility] [address] [place] [address] Suzan Galindo DO [address] [place] [address] 03/07/2026 9:20 AM EDT Office Visit [facility] Orthopaedic Surgery & Sports Medicine [address] [place] [address] Edgardo Zuñiga MD [address] [facility] [address] [place] [address] documented as of this encounter [...] documented as of this encounter Care Teams Case Worker Relationship Specialty Start Date End Date Marc Rodriguez MD [address] [place] [id number] PCP - General 12/14/20 Edgardo Zuñiga MD [address] [place] [address] Surgeon Neurosurgery 03/04/21 Giulia Briggs PA [address] [place] [address] Physician Lumber Racker Neurosurgery 07/03/21 Edgardo Zuñiga MD [address] [place] [address] Surgeon Neurosurgery 09/16/21 Esther Mathew PA [address] [place] [address] Physician Lumber Racker Neurology 11/19/22 documented as of this encounter
--- OUTSIDE RECORDS SUMMARY | 2025-05-02 13:46 | XMS_ITS | Encounter Summary ---
[facility] Address [address] [place] [address] Care Team Providers Care Center Consultant Name Role Phone Marc Rodriguez MD Primary Care Provider [phone] Encounter Details Date Type Department Care Team (Late st Contact Info) Description 10/12/2014 External CPT II SET ILLUSTRATOR - [facility] Social History Tobacco Use [...] PULMONARY & CRITICAL CARE MEDICINE [address] [place] [address] 06/26/2025 10:00 AM EST Office Visit [facility] PULMONARY & CRITICAL CARE MEDICINE [address] [place] [address] Kaitlin Joiner, MASTER IN CHANCERY [address] [place] [address] 09/12/2025 10:00 AM EST Office Visit [facility]IOLOGY [address] [facility] [address] [place] [address] Jimmy Duncan MD 3000 [facility] [address] [place] [address] documented as of this encounter Visit Diagnoses [...] documented as of this encounter Care Teams Center Consultant Relationship Specialty Start Date End Date Marc Rodriguez MD 1210 [facility] [address] [place] [address] PCP - General Adolescent Medicine 12/08/16 documented as of this encounter
--- OUTSIDE RECORDS SUMMARY | 2025-05-02 13:46 | XMS_ITS | Encounter Summary ---
Author Organization [facility] Address [address] [place] [address] Care Team Providers Care Die Maker Electronic Name Role Phone Marc Rodriguez MD Primary Care Provider Encounter Details Date Type Department Care Team (Late st Contact Info) Description 02/08/2016 External CPT II DIRECTOR OF UNDERGRADUATE ADMISSIONS - [facility] Social History Tobacco Use [...] & CRITICAL CARE MEDICINE [address] [place] [address] 06/26/2025 10:00 AM EST Office Visit [facility] PULMONARY & CRITICAL CARE MEDICINE [address] [place] [address] Kaitlin Joiner APRN [address] [place] [address] 09/12/2025 10:00 AM EST Office Visit [facility] CARDIOLOGY [address] [facility] [address] [place] [address] Jimmy Duncan MD 3000 [facility] [address] [place] [address] documented as of this encounter Visit Diagnoses [...] of this encounter Care Teams Die Maker Electronic Relationship Specialty Start Date End Date Marc Rodriguez MD 1210 [facility] [address] [place] [address] PCP - General Adolescent Medicine 12/08/16 documented as of this encounter
--- OUTSIDE RECORDS SUMMARY | 2025-05-02 13:46 | XMS_ITS | Encounter Summary ---
Author Organization Healthcare Address [address] [place] [address] Care Team Providers Care Drier Operator Head Name Role Phone Marc Rodriguez MD Primary Care Provider [phone] Edgardo Zuñiga MD Unavailable [phone] Giulia Briggs Unavailable [phone] Edgardo Zuñiga MD Unavailable [phone] Esther Mathew Unavailable [phone] Encounter Details Date Type Department Care Team (Late st Contact Info) Description 12/16/2023 Orders Only External Location [address] [place] [address] Provider, External Social History Tobacco Use Types [...] Description 05/25/2025 2:10 PM EDT Office Visit [facility] [address] [place] [address] Esther Mathew PA [address] [place] [address] 09/11/2025 11:50 AM EST Office Visit [facility] [address] [place] [address] Ryan LauraSuzan matt, [address] [place] [address] 03/07/2026 9:20 AM EDT Office Visit [facility] Orthopaedic Surgery & Sports Medicine [address] [place] [address] Edgardo Zuñiga MD [address] [facility] [address] [place] [address] documented as of this encounter [...] documented as of this encounter Care Teams Drier Operator Head Relationship Specialty Start Date End Date Marc Rodriguez MD [address] [place] [address] PCP - General 12/14/20 Edgardo Zuñiga MD [address] [place] [address] Surgeon Neurosurgery 03/04/21 Giulia Briggs PA [address] [place] [address] Physician Network Engineer Neurosurgery 07/03/21 Edgardo Zuñiga MD [address] [place] [address] Surgeon Neurosurgery 09/16/21 Esther Mathew PA [address] [place] [address] Physician Network Engineer Neurology 11/19/22 documented as of this encounter
--- NOTE | 2025-05-02 13:48 | US_ITS ---
FINAL REPORT TECHNIQUE: Ultrasound images of the kidneys were obtained. CLINICAL HISTORY: BLOOD IN URINE COMPARISON: None FINDINGS: RENAL ULTRASOUND Limited images of the liver parenchyma demonstrate normal echogenicity. The right kidney measures 10.7 cm in length. It is normal echogenicity. There is no hydronephrosis. The left kidney measures 9.1 cm in length. It is normal echogenicity. There is no hydronephrosis. There is a hyperechoic shadowing focus in the left kidney that probably represents a kidney stone. IMPRESSION: Probable left kidney stone. Reviewed, Interpreted and Dictated by Bulmaro Gary MD Transcribed by Lauren Cuellar Authenticated and [facility]
== END 2025-05-02 23:59 | disposition home or self-care (01) ==
LOC: RAD 13:43
PROVIDERS: PCP Internal Medicine Adolescent Medicine; Visit Provider Internal Medicine Adolescent Medicine
DX: R31.0 Gross hematuria (principal); R93.422 Abnormal radiologic findings on diagnostic imaging of left kidney
CPT/HCPCS: 76770

== ENCOUNTER 2025-05-17 16:21 | Emergency (ER) | payer MEDICARE, BC, SELFPAY ==
--- OUTSIDE RECORDS SUMMARY | 2017-12-24 10:37 | XMS_ITS | Encounter Summary ---
Author Organization [facility] Address [address] [place] [address] Care Team Providers Care Tractor Operator Helper Name Role Phone Marc Rodriguez MD Primary Care Provider [phone] Encounter Details Date Type Department Care Team (Late st Contact Info) Description 12/24/2017 10:37 AM EDT Hospital Encounter [facility] PULMONARY & CRITICAL CARE MEDICINE [address] [facility] [address] Social History Tobacco Use Types Packs/Day Years [...] Care Team (Late st Contact Info) Description 06/26/2025 9:30 AM EST Procedure visit [facility] PULMONARY & CRITICAL CARE MEDICINE [address] [place] [address] 06/26/2025 10:00 AM EST Office Visit [facility] PULMONARY & CRITICAL CARE MEDICINE [address] [place] [address] Kaitlin Joiner, ENGINE GENERATOR ASSEMBLER [address] [place] [address] 09/12/2025 10:00 AM EST Office Visit [facility] CARDIOLOGY [address] [facility] [address] [place] [address] Jimmy Duncan MD [address] [facility] [address] [place] [address] documented as of this encounter Procedures Procedure [...] documented as of this encounter Care Teams Tractor Operator Helper Relationship Specialty Start Date End Date Marc Rodriguez MD [address] [facility] [address] [place] [address] PCP - General Adolescent Medicine 12/08/16 documented as of this encounter
--- OUTSIDE RECORDS SUMMARY | 2018-08-16 11:42 | XMS_ITS | Encounter Summary ---
Author Organization [facility] Address [address] [address] Care Team Providers Care Head Operator Name Role Phone Marc Rodriguez MD Primary Care Provider [phone] Encounter Details Date Type Department Care Team (Late st Contact Info) Description 08/16/2018 10:42 AM EST Hospital Encounter [facility] PULMONARY & CRITICAL CARE MEDICINE [address] [place] [address] Social History Tobacco Use Types Packs/Day Years [...] Description 06/26/2025 9:30 AM EST Procedure visit [facility] PULMONARY & CRITICAL CARE MEDICINE [address] [facility] [place] [address] 06/26/2025 10:00 AM EST Office Visit [facility] PULMONARY & CRITICAL CARE MEDICINE [address] [facility] [place] [address] Kaitlin Joiner, TECHNICAL SME [address] [place] [address] 09/12/2025 10:00 AM EST Office Visit [facility] CARDIOLOGY [address] [facility] [address] [place] [phone] Jimmy Duncan MD [address] [facility] [address] [place] [address] documented as of this encounter Procedures Procedure [...] documented as of this encounter Care Teams Head Operator Relationship Specialty Start Date End Date Marc Rodriguez MD [address] [place] [address] PCP - General Adolescent Medicine 12/08/16 documented as of this encounter
--- OUTSIDE RECORDS SUMMARY | 2020-11-12 08:42 | XMS_ITS | Encounter Summary ---
Author Organization [facility] Address [address] [place] [address] Care Team Providers Care Stockroom Coordinator Name Role Phone Marc Rodriguez MD Primary Care Provider [phone] Encounter Details Date Type Department Care Team (Late st Contact Info) Description 11/12/2020 8:42 AM EDT Hospital Encounter [facility] PULMONARY & CRITICAL CARE MEDICINE [address] [place] [address] Social History Tobacco Use Types Packs/Day Years [...] 9:30 AM EST Procedure visit [facility] PULMONARY & CRITICAL CARE MEDICINE [address] [place] [address] 06/26/2025 10:00 AM EST Office Visit [facility] PULMONARY & CRITICAL CARE MEDICINE [address] [place] [address] Kaitlin Joiner, RN DOCUMENTATION [address] [place] [address] 09/12/2025 10:00 AM EST Office Visit [facility] CARDIOLOGY [address] [facility] [address] [place] [address] Jimmy Duncan MD [address] [facility] [address] [place] [address] documented as of this encounter Procedures Procedure [...] documented as of this encounter Care Teams Stockroom Coordinator Relationship Specialty Start Date End Date Marc Rodriguez MD [facility] [address] [phone] PCP - General Adolescent Medicine 12/08/16 documented as of this encounter
--- OUTSIDE RECORDS SUMMARY | 2022-07-11 14:36 | XMS_ITS | Encounter Summary ---
Author Organization [facility] Address [address] [place] [address] Care Team Providers Care Summer School Coordinator Name Role Phone Marc Rodriguez MD Primary Care Provider [phone] Encounter Details Date Type Department Care Team (Late Contact Info) Description 07/11/2022 1:36 PM EST Hospital Encounter [facility] PULMONARY & CRITICAL CARE MEDICINE [address] [facility] [place] [address] Social History Tobacco Use Types Packs/Day Years [...] 06/26/2025 9:30 AM EST Procedure visit [facility] PULMONARY & CRITICAL CARE MEDICINE [address] [place] [address] 06/26/2025 10:00 AM EST Office Visit [facility] PULMONARY & CRITICAL CARE MEDICINE [address] [place] [address] Kaitlin Joiner, HOSPICE RN [address] [place] [address] 09/12/2025 10:00 AM EST Office Visit [facility] CARDIOLOGY [address] [facility] [address] [place] [address] Jimmy Duncan MD 3000 [facility] [address] [place] [address] documented as of this encounter Procedures Procedure [...] by Edgardo Cash MD. Kaitlin L Rhys HOSPICE RN IMG DIAGNOSTIC IMAGING ORDER JORDANA Final Result documented in this encounter Visit Diagnoses Not on filedocumented in this encounter Care Teams Summer School Coordinator Relationship Specialty Start Date End Date Marc Rodriguez MD [facility] [address] [place] [address] PCP - General Adolescent Medicine 12/08/16 documented as of this encounter
--- OUTSIDE RECORDS SUMMARY | 2022-08-27 09:46 | XMS_ITS | Encounter Summary ---
Author Organization [facility] Address [address] [place] [address] Care Team Providers Care Associate Theatre Professor Name Role Phone Marc Rodriugez MD Primary Care Provider [phone] Encounter Details Date Type Department Care Team (Late Contact Info) Description 08/27/2022 8:46 AM EST Hospital Encounter [facility] PULMONARY & CRITICAL CARE MEDICINE [address] [facility] [address] Social History Tobacco Use Types Packs/Day Years [...] PULMONARY & CRITICAL CARE MEDICINE [address] [place] [address] 06/26/2025 10:00 AM EST Office Visit [facility] PULMONARY & CRITICAL CARE MEDICINE [address] [place] [address] Kaitlin Joiner, NUMERICAL TOOL PROGRAMMER [address] [place] [address] 09/12/2025 10:00 AM EST Office Visit [facility] CARDIOLOGY [address] [facility] [address] [place] [address] Jimmy Duncan MD [address] [facility] [address] [place] [address] documented as of this encounter Procedures Procedure [...] Coleman 08/27/2022 1:30 PM EST Workstation ID: [id number] Narrative 08/27/2022 1:30 PM EST XR CHEST [...] Laogan 08/27/2022 1:30 PM EST Workstation ID: [id number] Kaitlin Joiner APRN IMG DIAGNOSTIC IMAGING ORDER JORDANA Final Result documented in this encounter Visit Diagnoses Not on filedocumented in this encounter Care Teams Associate Theatre Professor Relationship Specialty Start Date End Date Marc Rodriguez MD [facility] [address] [facility] [place] [address] PCP - General Adolescent Medicine 12/08/16 documented as of this encounter
--- OUTSIDE RECORDS SUMMARY | 2024-12-30 09:04 | XMS_ITS | Encounter Summary ---
Author Organization [facility] Address [address] [place] [address] Care Team Providers Care President Consumer Electronics Company Name Role Phone Marc Rodriguez MD Primary Care Provider [phone] Encounter Details Date Type Department Care Team (Late st Contact Info) Description 12/30/2024 9:04 AM EDT Hospital Encounter [facility] PULMONARY & CRITICAL CARE MEDICINE [address] [facility] [place] [place] [phone] Social History Tobacco Use Types Packs/Day Years [...] Description 06/26/2025 9:30 AM EST Procedure visit [facility] PULMONARY & CRITICAL CARE MEDICINE [address] [place] [address] 06/26/2025 10:00 AM EST Office Visit [facility] PULMONARY & CRITICAL CARE MEDICINE [address] [place] [address] Kaitlin Joiner, ELECTRONIC DATA INTERCHANGE SPECIALIST [address] [place] [address] 09/12/2025 10:00 AM EST Office Visit [facility] CARDIOLOGY [address] [facility] [address] [place] [address] Jimmy Duncan MD 3000 [facility] [address] [place] [address] documented as of this encounter Procedures Procedure [...] MD 12/30/2024 9:27 AM EDT Workstation ID: [id number] Narrative 12/30/2024 9:27 AM EDT XR CHEST [...] MD 12/30/2024 9:27 AM EDT Workstation ID: [id number] Kaitlin Joiner APRN IMG DIAGNOSTIC IMAGING ORDER JORDANA Final Result documented in this encounter Visit Diagnoses Not on filedocumented in this encounter Care Teams President [employer] Relationship Specialty Start Date End Date Marc Rodriguez MD [address] [facility] [address] [facility] [address] PCP - General Adolescent Medicine 12/08/16 documented as of this encounter
[2025-05-17 16:31] VITALS: BP 164/92; PULSE 79; RESP 15; TEMP 36.9; O2SAT 96; BMI 26.6
--- OUTSIDE RECORDS SUMMARY | 2025-05-17 16:31 | XMS_ITS | Encounter Summary ---
Author Organization [facility] Address [address] [place] [address] Care Team Providers Care Station Worker Name Role Phone Marc Rodriguez MD Primary Care Provider [phone] Encounter Details Date Type Department Care Team (Late st Contact Info) Description 07/15/2019 External CPT II OB GYN - [facility] Social History Tobacco Use [...] Description 06/26/2025 9:30 AM EST Procedure visit [facility] PULMONARY & CRITICAL CARE MEDICINE [address] [place] [address] 06/26/2025 10:00 AM EST Office Visit [facility] PULMONARY & CRITICAL CARE MEDICINE [address] [place] [address] Kaitlin Joiner, TORI [address] [place] [address] 09/12/2025 10:00 AM EST Office Visit [facility] CARDIOLOGY [address] [place] [address] Jimmy Duncan MD 3000 [facility] [address] [place] [address] documented as of this encounter Visit Diagnoses [...] documented as of this encounter Care Teams Station Worker Relationship Specialty Start Date End Date Mrac Rodriguez MD 1210 [facility] [address] [facility] [place] [facility] [place] [address] PCP - General Adolescent Medicine 12/08/16 documented as of this encounter
--- OUTSIDE RECORDS SUMMARY | 2025-05-17 16:31 | XMS_ITS | Encounter Summary ---
Author Organization [facility] Address [address] [place] [address] Care Team Providers Care Light Bulb Replacer Name Role Phone Marc Rodriguez MD Primary Care Provider [phone] Encounter Details Date Type Department Care Team (Late st Contact Info) Description 06/23/2019 External CPT II DEAN OF STUDENTS - [facility] Social History Tobacco Use [...] PULMONARY & CRITICAL CARE MEDICINE [address] [place] [address] 06/26/2025 10:00 AM EST Office Visit [facility] PULMONARY & CRITICAL CARE MEDICINE [address] [place] [address] Kaitlin Joiner, TORI [address] [place] [address] 09/12/2025 10:00 AM EST Office Visit [facility] CARDIOLOGY [address] [facility] [address] [place] [address] Jimmy Duncan MD 3000 [facility] [address] [place] [address] documented as of this encounter Visit Diagnoses [...] documented as of this encounter Care Teams Light Bulb Replacer Relationship Specialty Start Date End Date Marc Rodriguez MD 1210 [facility] [address] [place] [address] PCP - General Adolescent Medicine 12/08/16 documented as of this encounter
--- OUTSIDE RECORDS SUMMARY | 2025-05-17 16:31 | XMS_ITS | Encounter Summary ---
Author Organization Healthcare Address [address] [place] [address] Care Team Providers Care Nuts And Bolts Assembler Name Role Phone Marc Rodriguez MD Primary Care Provider [phone] Edgardo Zuñiga MD Unavailable [phone] Giulia Briggs Unavailable [phone] Edgardo Zuñiga MD Unavailable [phone] Esther Mathew Unavailable [phone] Reason for Visit * Reason Onset Date Comments HCN Clinical Concern/Question 04/07/2025 Encounter Details Date Type Department Care Team (Late st Contact Info) Description 04/07/2025 Telephone Physical Medicine & Rehabilitation Clinic at [facility] [address] [place] [address] Suzan Galindo DO [address] [facility] [address] [place] [address] HCN Clinical Concern/Question Social History [...] received her lab results Best contact number: [phone] (mobile) Optimal time of day to reach caller: ANYTIME Additional comments/information from caller: None Note: Please do not reply to this message. Follow-up communication and further actions as a result of this message need to be communicated with the patient directly, if the patient is not active onMyChart. If the patient is active on MyChart, they will receive notification of the communication/outcome via [employer]. documented in this encounter Plan of Treatment Upcoming Encounters Date Type Department Care Team (Late st Contact Info) Description 05/25/2025 2:10 PM EDT Office Visit [facility] [address] 1st [place] [address] Esther Mathew, PA [address] [place] [address] 09/11/2025 11:50 AM EST Office Visit [facility] [address] [place] [address] Suzan Galindo DO [address] [place] [address] 03/07/2026 9:20 AM EDT Office Visit [facility] Orthopaedic Surgery & Sports Medicine [address] 1[address] [place] [address] Edgardo Zuñiga MD [address] [place] [address] documented as of this encounter Visit [...] documented as of this encounter Care Teams Nuts And Bolts Assembler Relationship Specialty Start Date End Date Marc Rodriguez MD [address] [place], [place] [address] PCP - General 12/14/20 Edgardo Zuñiga MD [address] [place] [address] Surgeon Neurosurgery 03/04/21 Giulia Briggs PA [address] [place] [address] Physician Power System Engineer Neurosurgery 07/03/21 Edgardo Zuñiga MD [address] [place] [address] Surgeon Neurosurgery 09/16/21 Esther Mathew PA [address] [place] [address] Physician Power System Engineer Neurology 11/19/22 documented as of this encounter
--- OUTSIDE RECORDS SUMMARY | 2025-05-17 16:32 | XMS_ITS | Encounter Summary ---
Author Organization [facility] Address [address] [place] [address] Care Team Providers Care Residential Sales Associate Name Role Phone Marc Rodriguez MD Primary Care Provider [phone] Encounter Details Date Type Department Care Team (Late st Contact Info) Description 12/03/2015 External CPT II HIGH PRESSURE FIRER - [facility] Social History Tobacco Use [...] Description 06/26/2025 9:30 AM EST Procedure visit [facility] PULMONARY & CRITICAL CARE MEDICINE [address] [place] [address] 06/26/2025 10:00 AM EST Office Visit [facility] PULMONARY & CRITICAL CARE MEDICINE [address] [place] [address] Kaitlin Joiner APRN [address] [place] [address] 09/12/2025 10:00 AM EST Office Visit [facility] CARDIOLOGY [address] [facility] [address] [place] [address] Jimmy Duncan MD 3000 [facility] [address] [place] [address] documented as of this encounter Visit Diagnoses [...] documented as of this encounter Care Teams Residential Sales Associate Relationship Specialty Start Date End Date Marc Rodriguez MD 1210 [facility] [address] [place] [address] PCP - General Adolescent Medicine 12/08/16 documented as of this encounter
--- OUTSIDE RECORDS SUMMARY | 2025-05-17 16:32 | XMS_ITS | Encounter Summary ---
[facility] Address [address] [place] [address] Care Team Providers Care Metal Moulder Name Role Phone Marc Rodriguez MD Primary Care Provider [phone] Encounter Details Date Type Department Care Team (Late st Contact Info) Description 08/20/2015 External CPT II SENIOR TECHNOLOGIST - [facility] Social History Tobacco Use [...] Description 06/26/2025 9:30 AM EST Procedure visit [facility] PULMONARY & CRITICAL CARE MEDICINE [address] [place] [address] 06/26/2025 10:00 AM EST Office Visit [facility] PULMONARY & CRITICAL CARE MEDICINE [address] [place] [address] Kaitlin Joiner, TOBACCO PREVENTION HEALTH EDUCATOR [address] [place] [address] 09/12/2025 10:00 AM EST Office Visit [facility] CARDIOLOGY [address] [facility] [address] [place] [address] Jimmy Duncan MD [address] [facility] [address] [place] [address] documented as of this encounter Visit Diagnoses [...] as of this encounter Care Teams Metal Moulder Relationship Specialty Start Date End Date Marc Rodriguez MD 1210 [facility] [address] [place] [address] PCP - General Adolescent Medicine 12/08/16 documented as of this encounter
--- OUTSIDE RECORDS SUMMARY | 2025-05-17 16:32 | XMS_ITS | Encounter Summary ---
Author Organization Healthcare Address [address] [place] [address] Care Team Providers Care Geotechnical Department Manager Name Role Phone Marc Rodriguez MD Primary Care Provider [phone] Edgardo Zuñiga MD Unavailable [phone] Giulia Briggs Unavailable [phone] Edgardo Zuñiga MD Unavailable [phone] Esther Mathew Unavailable [phone] Encounter Details Date Type Department Care Team (Late st Contact Info) Description 03/10/2025 Results Follow-Up Physical Medicine & Rehabilitation Clinic at [facility] [address] [address] Suzan Galindo DO [address] [facility] [address] [place] [address] Social History Tobacco Use Types [...] the past 12 months has th e [employer], gas, oil, or water [employer]mentCity threatened to shut off services in your [...] Visit [facility] [address] 1st [place] [address] Esther Mathew, PA [address] [place] [address] 09/11/2025 11:50 AM EST Office Visit [facility] [address] [place] [address] Suzan Galindo DO [address] [place] [address] 03/07/2026 9:20 AM EDT Office Visit [facility] Orthopaedic Surgery & Sports Medicine [address] 1[address] [place] [address] Edgardo Zuñiga MD [address] [place] [address] documented as of this encounter [...] documented as of this encounter Care Teams Geotechnical Department Manager Relationship Specialty Start Date End Date Marc Rodriguez MD [address] [place] [address] PCP - General 12/14/20 Edgardo Zuñiga MD [address] [place] [address] Surgeon Neurosurgery 03/04/21 Giulia Briggs PA [address] [place] [address] Physician Packing Room Supervisor Neurosurgery 07/03/21 Edgardo Zuñiga MD [address] [place] [address] Surgeon Neurosurgery 09/16/21 Esther Mathew PA [address] [place] [address] Physician Packing Room Supervisor Neurology 11/19/22 documented as of this encounter
--- OUTSIDE RECORDS SUMMARY | 2025-05-17 16:32 | XMS_ITS | Encounter Summary ---
Author Organization [facility] Address [address] [place] [address] Care Team Providers Care Strip Machine Tender Name Role Phone Marc Rodriguez MD Primary Care Provider [phone] Encounter Details Date Type Department Care Team (Late st Contact Info) Description 11/27/2015 External CPT II BUSINESS OFFICE ASSISTANT - [facility] Social History [...] & CRITICAL CARE MEDICINE [address] [place] [address] 06/26/2025 10:00 AM EST Office Visit [facility] PULMONARY & CRITICAL CARE MEDICINE [address] [place] [address] Kaitlin Joiner APRN [address] [place] [address] 09/12/2025 10:00 AM EST Office Visit [facility] CARDIOLOGY [address] [facility] [address] [place] [address] Jimmy Duncan MD 3000 [facility] [address] [place] [address] documented as of this encounter Visit Diagnoses [...] documented as of this encounter Care Teams Strip Machine Tender Relationship Specialty Start Date End Date Marc Rodriguez MD 1210 [facility] [address] [place] [address] PCP - General Adolescent Medicine 12/08/16 documented as of this encounter
--- OUTSIDE RECORDS SUMMARY | 2025-05-17 16:32 | XMS_ITS | Encounter Summary ---
Author Organization [facility] Address [address] [place] [address] Care Team Providers Care Fish Bin Tender Name Role Phone Marc Rodriguez MD Primary Care Provider [phone] Encounter Details Date Type Department Care Team (Late st Contact Info) Description 12/12/2015 External CPT II GEAR HOBBER SET UP OPERATOR - [facility] Social History Tobacco [...] & CRITICAL CARE MEDICINE [address] [place] [address] 06/26/2025 10:00 AM EST Office Visit [facility] PULMONARY & CRITICAL CARE MEDICINE [address] [place] [address] Kaitlin Joiner APRN [address] [place] [address] 09/12/2025 10:00 AM EST Office Visit [facility] CARDIOLOGY [address] [facility] [address] [place] [address] Jimmy Duncan MD 3000 [facility] [address] [place] [address] documented as of this encounter Visit Diagnoses [...] as of this encounter Care Teams Fish Bin Tender Relationship Specialty Start Date End Date Marc Rodriguez MD 1210 [facility] [address] [place] [address] PCP - General Adolescent Medicine 12/08/16 documented as of this encounter
--- OUTSIDE RECORDS SUMMARY | 2025-05-17 16:32 | XMS_ITS | Encounter Summary ---
[facility] Address [address] [place] [address] Care Team Providers Care Art Educator Name Role Phone Marc Rodriguez MD Primary Care Provider [phone] Encounter Details Date Type Department Care Team (Late st Contact Info) Description 10/16/2015 External CPT II CHILD NUTRITION ASSISTANT - [facility] Social History Tobacco [...] PULMONARY & CRITICAL CARE MEDICINE [address] [place] [address] 06/26/2025 10:00 AM EST Office Visit [facility] PULMONARY & CRITICAL CARE MEDICINE [address] [place] [address] Kaitlin Joiner, PRINT MANAGER [address] [place] [address] 09/12/2025 10:00 AM EST Office Visit [facility]ARDIOLOGY [address] [facility] [place] [address] Jimmy Duncan MD 3000 [facility] [address] [place] [address] documented as of this encounter Visit Diagnoses [...] documented as of this encounter Care Teams Art Educator Relationship Specialty Start Date End Date Marc Rodriguez MD 1210 [facility] [address] [place] [address] PCP - General Adolescent Medicine 12/08/16 documented as of this encounter
--- OUTSIDE RECORDS SUMMARY | 2025-05-17 16:32 | XMS_ITS | Encounter Summary ---
[facility] Address [address] [place] [address] Care Team Providers Care Adult Family Home Program Manager Name Role Phone Marc Rodriguez MD Primary Care Provider [phone] Encounter Details Date Type Department Care Team (Late st Contact Info) Description 07/31/2015 External CPT II SPA CONSULTANT - [facility] Social History Tobacco Use [...] PULMONARY & CRITICAL CARE MEDICINE [address] [place] [address] 06/26/2025 10:00 AM EST Office Visit [facility] PULMONARY & CRITICAL CARE MEDICINE [address] [place] [address] Kaitlin Joiner, DOMESTIC HOUSEKEEPER [address] [place] [address] 09/12/2025 10:00 AM EST Office Visit [facility]IOLOGY [address] [facility] [address] [place] [address] Jimmy Duncan MD 3000 [facility] [address] [place] [address] documented as of this encounter Visit Diagnoses [...] documented as of this encounter Care Teams Adult Family Home Program Manager Relationship Specialty Start Date End Date Marc Rodriguez MD 1210 [facility] [address] [place] [address] PCP - General Adolescent Medicine 12/08/16 documented as of this encounter
--- OUTSIDE RECORDS SUMMARY | 2025-05-17 16:32 | XMS_ITS | Encounter Summary ---
Author Organization [facility] Address [address] [place] [address] Care Team Providers Care Curriculum Writer Name Role Phone Marc Rodriguez MD Primary Care Provider [phone] Encounter Details Date Type Department Care Team (Late st Contact Info) Description 05/17/2019 External CPT II GAS TURBINE POWERPLANT MECHANIC HELPER - [facility] Social History Tobacco [...] PULMONARY & CRITICAL CARE MEDICINE [address] [place] [address] 06/26/2025 10:00 AM EST Office Visit [facility] PULMONARY & CRITICAL CARE MEDICINE [address] [place] [address] Kaitlin Joiner, TORI [address] [place] [address] 09/12/2025 10:00 AM EST Office Visit [facility] CARDIOLOGY [address] [facility] [address] [place] [address] Jimmy Duncan MD 3000 [facility] [address] [place] [address] documented as of this encounter Visit Diagnoses [...] documented as of this encounter Care Teams Curriculum Writer Relationship Specialty Start Date End Date Marc Rodriguez MD 1210 [facility] [address] [facility] [place] [place] [address] PCP - General Adolescent Medicine 12/08/16 documented as of this encounter
--- OUTSIDE RECORDS SUMMARY | 2025-05-17 16:32 | XMS_ITS | Encounter Summary ---
Author Organization Healthcare Address [address] [place] [address] Care Team Providers Care College Teacher Name Role Phone Marc Rodriguez MD Primary Care Provider [phone] Edgardo Zuñiga MD Unavailable [phone] Giulia Briggs Unavailable [phone] Edgardo Zuñiga MD Unavailable [phone] Esther Mathew Unavailable [phone] Encounter Details Date Type Department Care Team (Late st Contact Info) Description 05/08/2025 Orders Only Physical Medicine & Rehabilitation Clinic at [facility] [address] [address] Suzan Galindo DO [address] [place] [address] High risk medication use (Primary Dx) Social History Tobacco Use Types [...] the past 12 months has th e [employer], gas, oil, or water [employer] threatened to shut off services in your [...] Visit [place] [facility] [address], 1[address] [place] [address] Esther Mathew PA [address] [place] [address] 09/11/2025 11:50 AM EST Office Visit [facility] at [facility] [address] [place] [address] Suzan Galindo DO [address] [place] [address] 03/07/2026 9:20 AM EDT Office Visit [facility] Orthopaedic Surgery & Sports Medicine [address] [place] [address] Edgrado Zuñiga MD [address] [place] [address] documented as of this encounter Results * (ABNORMAL) Comprehensive metabolic panel (05/09/2025 10:40 AM EDT) Glucose, Plasma 89 74 - 99 mg/dL 05/09/2025 12:33 PM EDT [facility] BUN, Plasma 15 8 - 23 mg/dL 05/09/2025 12:33 PM EDT [facility] Creatinine, Plasma 0.63 0.60 - 1.10 mg/dL 05/09/2025 12:33 PM EDT [facility] BUN/Creatinine Ratio 24 05/09/2025 12:33 PM EDT [facility] Sodium, Plasma 147(H) 136 - 145 mmol/L 05/09/2025 12:33 PM EDT [facility] Potassium, Plasma 4.8 3.6 - 4.9 mmol/L 05/09/2025 12:33 PM EDT [facility] Chloride, Plasma 107 97 - 107 mmol/L 05/09/2025 12:33 PM EDT [facility] CO2, Plasma 31(H) 22 - 29 mmol/L 05/09/2025 12:33 PM EDT [facility] Anion Gap 9 6 - 16 mmol/L 05/09/2025 12:33 PM EDT [facility] Total Calcium, Plasma 9.7 8.9 - 10.2 mg/dL 05/09/2025 12:33 PM EDT [facility] Total Protein 6.3 6.3 - 7.9 g/dL 05/09/2025 12:33 PM EDT [facility] Albumin, Plasma 3.5 3.5 - 5.2 g/dL 05/09/2025 12:33 PM EDT [facility] AST, Plasma 39(H) 10 - 35 U/L 05/09/2025 12:33 PM EDT [facility] ALT, Plasma 25 10 - 35 U/L 05/09/2025 12:33 PM EDT [facility] Alkaline Phosphatase, Plasma 103 46 - 142 U/L 05/09/2025 12:33 PM EDT [facility] Total Bilirubin, Plasma 0.5 0.2 - 1.1 mg/dL 05/09/2025 12:33 PM EDT [facility] eGFRcr 95.0 mL/min/1.7 3m*2 05/09/2025 12:33 PM EDT [facility] Comment:Reported eGFRcr in m L/min/1.73m2 is based the CKD-EPI 2020 equation that does not use a race coefficient. Blood Venous blood specimen / Unknown Venipuncture / Unknown 05/09/2025 10:40 AM EDT 05/09/2025 10:41 AM EDT us Suzan Sanchez DO LAB BLOOD ORDERABLES Final Result [facility] [address] [place] [address] documented in this encounter Visit Diagnoses Diagnosis High risk medication use- Primary documented in this encounter Additional Health Concerns Assessment Noted Time PHQ-9 Depression Total Score: 0 07/05/20 10:01 AM EST A fall risk assessment has been complete d for the patient 03/09/2025 1:24 PM EDT A Body Mass Index follow-up plan has been documented for the patient 03/12/2025 3:04 PM EDT documented as of this encounter Care Teams College Teacher Relationship Specialty Start Date End Date Marc Rodriguez MD [address] [place] [address] PCP - General 12/14/20 Edgardo Zuñiga MD [address] [place] [address] Surgeon Neurosurgery 03/04/21 Giulia Briggs PA [address] [place] [address] Physician Load Haul Dump Operator Neurosurgery 07/03/21 Edgardo Zuñiga MD [address] [place] [address] Surgeon Neurosurgery 09/16/21 Esther Mathew PA [address] [place] [address] Physician Load Haul Dump Operator Neurology 11/19/22 documented as of this encounter
--- OUTSIDE RECORDS SUMMARY | 2025-05-17 16:32 | XMS_ITS | Encounter Summary ---
Author Organization Healthcare Address [address] [place] [address] Care Team Providers Care Surgical Processor Name Role Phone Marc Rodriguez MD Primary Care Provider [phone] Edgardo Zuñiga MD Unavailable [phone] Giulia Briggs Unavailable [phone] Edgardo Zuñiga MD Unavailable [phone] Esther Mathew Unavailable [phone] Reason for Visit * Reason Comments Med Refill Encounter Details Date Type Department Care Team (Late st Contact Info) Description 04/17/2025 Refill [place] [facility] [address], 1[address] [place] [address] Esther Mathew PA [address] [place] [address] Social History Tobacco Use Types [...] the past 12 months has th e [employer], gas, oil, or water [employer] threatened to shut off services in your [...] Description 05/25/2025 2:10 PM EDT Office Visit [facility] [address], 1[address] [place] [address] Esther Mathew PA [address] [place] [address] 09/11/2025 11:50 AM EST Office Visit [facility] [address] [place] [address] Suzan Galindo DO [address] [place] [address] 03/07/2026 9:20 AM EDT Office Visit [facility] Orthopaedic Surgery & Sports Medicine [address] [place] [address] Edgardo Zuñiga MD [address] [place] [address] documented as of this encounter [...] documented as of this encounter Care Teams Surgical Processor Relationship Specialty Start Date End Date Marc Rodriguez MD [address] [place] [address] PCP - General 12/14/20 Edgardo Zuñiga MD [address] [place] [address] Surgeon Neurosurgery 03/04/21 Giulia Briggs PA [address] [place] [address] Physician Leasing Associate Neurosurgery 07/03/21 Edgardo Zuñiga MD [address] [place] [address] Surgeon Neurosurgery 09/16/21 Esther Mathew PA [address] [place] [address] Physician Leasing Associate Neurology 11/19/22 documented as of this encounter
--- OUTSIDE RECORDS SUMMARY | 2025-05-17 16:32 | XMS_ITS | Encounter Summary ---
Author Organization Healthcare Address [address] [place] [address] Care Team Providers Care Spray Stainer Name Role Phone Marc Rodriguez MD Primary Care Provider [phone] Edgardo Zuñiga MD Unavailable [phone] Giulia Briggs Unavailable [phone] Edgardo Zuñiga MD Unavailable [phone] Esther Mathew Unavailable [phone] Reason for Visit * Reason Onset Date Comments Med Refill 03/10/2025 Encounter Details Date Type Department Care Team (Late st Contact Info) Description 03/10/2025 Refill Physical Medicine & Rehabilitation Clinic at [facility] [address] [place] [address] Suzan Galindo DO [address] [facility] [address] [place] [address] Social History Tobacco Use Types [...] the past 12 months has th e [employer], gas, oil, or water company threatened to [...] Description 05/25/2025 2:10 PM EDT Office Visit [facility] [address] 1st [place] [address] Esther Mathew PA [address] [place] [address] 09/11/2025 11:50 AM EST Office Visit [facility] at [facility] [address] [place] [address] Suzan Galindo DO [address] [place] [address] 03/07/2026 9:20 AM EDT Office Visit [facility] Orthopaedic Surgery & Sports Medicine [address] 1[address] [place] [address] Edgardo Zuñiga MD [address] [facility] [place] [address] documented as of this encounter [...] documented as of this encounter Care Teams Spray Stainer Relationship Specialty Start Date End Date Marc Rodriguez MD [address] [place] [address] PCP - General 12/14/20 Edgardo Zuñiga MD [address] [place] [address] Surgeon Neurosurgery 03/04/21 Giulia Briggs PA [address] [place] [address] Physician Slubber Hand Neurosurgery 07/03/21 Edgardo Zuñiga MD [address] [place] [address] Surgeon Neurosurgery 09/16/21 Esther Mathew PA [address] [place] [address] Physician Slubber Hand Neurology 11/19/22 documented as of this encounter
--- OUTSIDE RECORDS SUMMARY | 2025-05-17 16:32 | XMS_ITS | Encounter Summary ---
[facility] Address [address] [place] [address] Care Team Providers Care Family Partner Name Role Phone Marc Rodriguez MD Primary Care Provider [phone] Encounter Details Date Type Department Care Team (Late st Contact Info) Description 09/19/2015 External CPT II OVERHEAD CLEANER MAINTAINER - [facility] Social History Tobacco Use [...] PULMONARY & CRITICAL CARE MEDICINE [address] [place] [address] 06/26/2025 10:00 AM EST Office Visit [facility] PULMONARY & CRITICAL CARE MEDICINE [address] [place] [address] Kaitlin Joiner, BULK MATERIALS HANDLING PLANT OPERATOR [address] [place] [address] 09/12/2025 10:00 AM EST Office Visit [facility]IOLOGY [address] [facility] [place] [address] Jimmy Duncan MD [address] [facility] [address] [place] [address] documented as of this encounter Visit Diagnoses [...] documented as of this encounter Care Teams Family Partner Relationship Specialty Start Date End Date Marc Rodriguez MD [address] [facility] [address] [place] [address] PCP - General Adolescent Medicine 12/08/16 documented as of this encounter
--- OUTSIDE RECORDS SUMMARY | 2025-05-17 16:32 | XMS_ITS | Encounter Summary ---
Author Organization Healthcare Address [address] [place] [address] Care Team Providers Care Trekking Guide Name Role Phone Marc Rodriguez MD Primary Care Provider [phone] Edgardo Zuñiga MD Unavailable [phone] Giulia Briggs Unavailable [phone] Edgardo Zuñiga MD Unavailable [phone] Esther Mathew Unavailable [phone] Reason for Visit * Reason Onset Date Comments HCN Clinical Concern/Question 05/08/2025 Encounter Details Date Type Department Care Team (Late st Contact Info) Description 05/08/2025 Telephone Physical Medicine & Rehabilitation Clinic at [facility] [address] [place] [address] Suzan Galindo DO [address] [facility] [address] [place] [address] HCN Clinical Concern/Question Social History [...] * Telephone Encounter - Preeti Delacruz - 05/08/2025 3:21 PM EDT Called pt to let her know had to leave a VM I will send her a message on [employer] * Telephone Encounter - Preeti Delacruz - 05/08/2025 11:28 AM EDT Called pt she said she will be in [place] tomorrow morning and she wanted to do the lab done tomorrow for her liver. Pt would like an order placed she will be going to the same lab as last time. * Telephone Encounter - Dolly Mills - 05/08/2025 10:37 AM EDT Clinical Concern/Question Reason for Call: patient of Dr. Sanchez is requesting a call back regarding her getting lab orders for her liver Best contact number: [phone] (mobile) Optimal time of day to reach caller: ANYTIME Additional comments/information from caller: None Note: Please do not reply to this message. Follow-up communication and further actions as a result of this message need to be communicated with the patient directly, if the patient is not active onMyChart. If the patient is active on MyChart, they will receive notification of the communication/outcome via [employer]. documented in this encounter Plan of Treatment Upcoming Encounters Date Type Department Care Team (Late st Contact Info) Description 05/25/2025 2:10 PM EDT Office Visit [place] [facility] [address], 1st [place] [address] Esther Mathew, JAMES [address] [place] [address] 09/11/2025 11:50 AM EST Office Visit [facility] Medicine & Rehabilitation Clinic at [facility] [address] [place] [address] Ryan LauraSuzan matt, DO [address] [place] [address] 03/07/2026 9:20 AM EDT Office Visit [facility] Orthopaedic Surgery & Sports Medicine [address] 1[address] [place] [address] Edgardo Zuñiga MD [address] [place] [address] documented as of this encounter [...] documented as of this encounter Care Teams Trekking Guide Relationship Specialty Start Date End Date Marc Rodriguez MD [address] [facility] [address] [place] [address] PCP - General 12/14/20 Edgardo Zuñiga MD [address] [place] [address] Surgeon Neurosurgery 03/04/21 Giulia Briggs PA [address] [place] [address] Physician Victims Advocate Clerk/Specialist Neurosurgery 07/03/21 Edgardo Zuñiga MD [address] [place] [address] Surgeon Neurosurgery 09/16/21 Esther Mathew PA [address] [address] Physician Victims Advocate Clerk/Specialist Neurology 11/19/22 documented as of this encounter
--- OUTSIDE RECORDS SUMMARY | 2025-05-17 16:32 | XMS_ITS | Encounter Summary ---
Author Organization [facility] Address [address] [place] [address] Care Team Providers Care Wage Conciliator Name Role Phone Marc Rodriguez MD Primary Care Provider [phone] Encounter Details Date Type Department Care Team (Late st Contact Info) Description 06/18/2016 External CPT II TAKER AWAY - [facility] Social History Tobacco Use [...] [facility] PULMONARY [facility] CRITICAL CARE MEDICINE [address] [place] [address] 06/26/2025 10:00 AM EST Office Visit [facility] PULMONARY & CRITICAL CARE MEDICINE [address] [place] [address] Kaitlin Joiner APRN [address] [place] [address] 09/12/2025 10:00 AM EST Office Visit [facility] CARDIOLOGY [address] [facility] [address] [place] [address] Jimmy Duncan MD [address] [facility] [address] [place] [address] documented as of this encounter Visit Diagnoses [...] documented as of this encounter Care Teams Wage Conciliator Relationship Specialty Start Date End Date Marc Rodriguez MD [address] [facility] [address] [place] [address] PCP - General Adolescent Medicine 12/08/16 documented as of this encounter
--- OUTSIDE RECORDS SUMMARY | 2025-05-17 16:32 | XMS_ITS | Encounter Summary ---
Author Organization [facility] Address [address] [place] [address] Care Team Providers Care Light Equipment Operator Name Role Phone Marc Rodriguez MD Primary Care Provider [phone] Encounter Details Date Type Department Care Team (Late st Contact Info) Description 11/26/2018 External CPT II SUPPLY CHAIN ASSISTANT - [employer] [facility] Social History Tobacco [...] PULMONARY & CRITICAL CARE MEDICINE [address] [place] [address] 06/26/2025 10:00 AM EST Office Visit [facility] PULMONARY & CRITICAL CARE MEDICINE [address] [place] [address] Kaitlin Joiner, INFORMATION SYSTEMS OPERATOR [address] [place] [address] 09/12/2025 10:00 AM EST Office Visit [facility] CARDIOLOGY [address] [facility] [address] [place] [address] Jimmy Duncan MD [address] [facility] [address] [place] [address] documented as of this encounter Visit Diagnoses [...] as of this encounter Care Teams Light Equipment Operator Relationship Specialty Start Date End Date Marc Rodriguez MD [address] [facility] [address] [facility] [facility] [place] [address] PCP - General Adolescent Medicine 12/08/16 documented as of this encounter
--- OUTSIDE RECORDS SUMMARY | 2025-05-17 16:32 | XMS_ITS | Encounter Summary ---
Author Organization [facility] Address [address] [place] [address] Care Team Providers Care Groover Runner Name Role Phone Marc Rodriguez MD Primary Care Provider [phone] Edgardo Zuñiga MD Unavailable [phone] Giulia Briggs Unavailable [phone] Edgardo Zuñiga MD Unavailable [phone] Esther Mathew Unavailable [phone] Encounter Details Date Type Department Care Team (Latest Contact Info) Description 05/09/2025 Travel Social History Tobacco Use Types Packs/Day [...] Visit [place] [facility] [address] 1st [place] [address] Esther Mathew PA [address] [place] [address] 09/11/2025 11:50 AM EST Office Visit [facility] [address] [place] [address] Tony GalindoaDO [address] [place] [address] 03/07/2026 9:20 AM EDT Office Visit [facility] Surgery [facility] Medicine [address], 1[address] [place] [address] Edgardo Zuñiga MD [address] [place] [address] documented as of this encounter [...] documented as of this encounter Care Teams Groover Runner Relationship Specialty Start Date End Date Marc Rodriguez MD [address] [place], [place] [address] PCP - General 12/14/20 Edgardo Zuñiga MD [address] [place] [address] Surgeon Neurosurgery 03/04/21 Giulia Briggs PA [address] [place] [address] Physician Processing Spec Neurosurgery 07/03/21 Edgardo Zuñiga MD [address] [place] [address] Surgeon Neurosurgery 09/16/21 Esther Mathew PA [address] [place] [address] Physician Processing Spec Neurology 11/19/22 documented as of this encounter
--- OUTSIDE RECORDS SUMMARY | 2025-05-17 16:32 | XMS_ITS | Encounter Summary ---
Author Organization [facility] Address [address] [place] [address] Care Team Providers Care Aircraft Charter Dispatcher Name Role Phone Marc Rodriguez MD Primary Care Provider [phone] Encounter Details Date Type Department Care Team (Late st Contact Info) Description 02/10/2025 Telephone [facility] CARDIOLOGY [address] [facility] [address], [place] [address] Jimmy Duncan MD [address] [address] [place] [address] Social History Tobacco Use Types Packs/Day Years [...] PULMONARY & CRITICAL CARE MEDICINE [address] [place] [address] 06/26/2025 10:00 AM EST Office Visit [facility] PULMONARY & CRITICAL CARE MEDICINE [address] [place] [address] Kaitlin Joiner, GROCERY TEAM MEMBER [address] [place] [address] 09/12/2025 10:00 AM EST Office Visit [facility] CARDIOLOGY [address] [facility] [address] [place] [address] Jimmy Duncan MD [address] [place] [address] documented as of this encounter Visit Diagnoses Not on filedocumented in this encounter Care Teams Aircraft Charter Dispatcher Relationship Specialty Start Date End Date Marc Rodriguez MD [address] [facility] [address] [facility] [address] [place] [address] PCP - General Adolescent Medicine 12/08/16 documented as of this encounter
--- OUTSIDE RECORDS SUMMARY | 2025-05-17 16:32 | XMS_ITS | Clinical Summary ---
Author Organization [facility] Address [address] [facility] [address] [place] [address] Phone Care Team Providers Care Vp Care Management Name Role Phone Rodrigo Avelar MD. Unavailable [phone] Conditions or Problems No information available. Medications No information available. Medications Administered No information available. Allergies, Adverse Reactions, Alerts No information available. Results No information available. Plan of Care No information available. Procedures No information available. Vital Signs No information available. Immunizations No information available. Advance Directives No information available.
--- OUTSIDE RECORDS SUMMARY | 2025-05-17 16:32 | XMS_ITS | Encounter Summary ---
Author Organization [facility] Address [address] [place] [address] Care Team Providers Care Concert Or Lecture Hall Manager Name Role Phone Marc Rodriguez MD Primary Care Provider [phone] Encounter Details Date Type Department Care Team (Late st Contact Info) Description 12/14/2018 External CPT II MESH WORKER - [facility] Social History Tobacco [...] PULMONARY & CRITICAL CARE MEDICINE [address] [place] [address] 06/26/2025 10:00 AM EST Office Visit [facility] PULMONARY & CRITICAL CARE MEDICINE [address] [place] [address] Kaitlin Joiner, DIRECTOR NICU [address] [place] [address] 09/12/2025 10:00 AM EST Office Visit [facility] CARDIOLOGY [address] [facility] [address] [place] [address] Jimmy Duncan MD [address] [facility] [address] [place] [address] documented as of this encounter Visit Diagnoses [...] documented as of this encounter Care Teams Concert Or Lecture Hall Manager Relationship Specialty Start Date End Date Marc Rodriguez MD [address] [facility] [address] [place] [address] PCP - General Adolescent Medicine 12/08/16 documented as of this encounter
--- OUTSIDE RECORDS SUMMARY | 2025-05-17 16:32 | XMS_ITS | Encounter Summary ---
Author Organization [facility] Address [address] [place] [address] Care Team Providers Care Beverage Manager Name Role Phone Marc Rodriguez MD Primary Care Provider [phone] Encounter Details Date Type Department Care Team (Late st Contact Info) Description 02/08/2016 External CPT II INFORMATION TECHNOLOGY ARCHITECT - [facility] Social History Tobacco Use [...] & CRITICAL CARE MEDICINE [address] [place] [address] 06/26/2025 10:00 AM EST Office Visit [facility] PULMONARY & CRITICAL CARE MEDICINE [address] [place] [address] Kaitlin Joiner APRN [address] [place] [address] 09/12/2025 10:00 AM EST Office Visit [facility] CARDIOLOGY [address] [facility] [address] [place] [address] Jimmy Duncan MD [address] [facility] [address] [place] [address] documented as of this encounter Visit Diagnoses [...] documented as of this encounter Care Teams Beverage Manager Relationship Specialty Start Date End Date Marc Rodriguez MD [address] [facility] [address] [place] [address] PCP - General Adolescent Medicine 12/08/16 documented as of this encounter
--- OUTSIDE RECORDS SUMMARY | 2025-05-17 16:33 | XMS_ITS | Encounter Summary ---
Author Organization [facility] Address [address] [place] [address] Care Team Providers Care Tierce Filler Name Role Phone Marc Rodriguez MD Primary Care Provider [phone] Reason for Visit * Reason Comments Med Refill Encounter Details Date Type Department Care Team (Late st Contact Info) Description 04/22/2025 Refill [facility] PULMONARY & CRITICAL CARE MEDICINE [address] [facility] [place] [address] Kaitlin Joiner, PSYCHOLOGY ASSISTANT [address] [place], [place] [id number] Severe persistent asthma without complication Social History [...] HOSPITAL PULMONARY & CRITICAL CARE MEDICINE [address] [facility] [place] [address] 06/26/2025 10:00 AM EST Office Visit [facility] PULMONARY & CRITICAL CARE MEDICINE [address] [place] [address] Kaitlin Joiner, PSYCHOLOGY ASSISTANT [address] [place] [address] 09/12/2025 10:00 AM EST Office Visit [facility] CARDIOLOGY [address] [facility] [address] [place] [id number] Jimmy Duncan MD [address] [facility] [address] [place] [address] documented as of this encounter Visit Diagnoses Diagnosis Severe persistent asthma without complication documented in this encounter Care Teams Tierce Filler Relationship Specialty Start Date End Date Marc Rodriguez MD [address] [facility] [address] [facility] [address] [place] [address] PCP - General Adolescent Medicine 12/08/16 documented as of this encounter
--- OUTSIDE RECORDS SUMMARY | 2025-05-17 16:33 | XMS_ITS | Encounter Summary ---
[facility] Organization [facility] Address [address] [place] [address] Care Team Providers Care Transportation Consultant Name Role Phone Marc Rodriguez MD Primary Care Provider Encounter Details Date Type Department Care Team (Late st Contact Info) Description 10/10/2014 External CPT II DAIRY WORKER - [employer] Social History Tobacco [...] 9:30 AM EST Procedure visit [facility] PULMONARY & CRITICAL CARE MEDICINE [address] [place] [address] 06/26/2025 10:00 AM EST Office Visit [facility] PULMONARY & CRITICAL CARE MEDICINE [address] [place] [address] Kaitlin Joiner, FULFILLMENT ASSOCIATE [address] [place] [address] 09/12/2025 10:00 AM EST Office Visit [facility] CARDIOLOGY [address] [place] [address] Jimmy Duncan MD [address] [facility] [address] [place] [address] documented as of this encounter Visit Diagnoses [...] as of this encounter Care Teams Transportation Consultant Relationship Specialty Start Date End Date Marc Rodriguez MD [address] [facility] [address] [place] [address] PCP - General Adolescent Medicine 12/08/16 documented as of this encounter
--- OUTSIDE RECORDS SUMMARY | 2025-05-17 16:33 | XMS_ITS | Encounter Summary ---
[facility] Organization [facility] Address [address] [place] [address] Care Team Providers Care Director Electronics Name Role Phone Marc Rodriguez MD Primary Care Provider [phone] Encounter Details Date Type Department Care Team (Late st Contact Info) Description 01/11/2015 External CPT II PACKAGING MACHINE SUPPLIES DISTRIBUTOR - [employer] Social History Tobacco Use [...] PULMONARY & CRITICAL CARE MEDICINE [address] [place] [address] 06/26/2025 10:00 AM EST Office Visit [facility] PULMONARY & CRITICAL CARE MEDICINE [address] [place] [address] Kaitlin Joiner, TAKE OFF WORKER [address] [place] [address] 09/12/2025 10:00 AM EST Office Visit [facility] CARDIOLOGY [address] [place] [address] Jimmy Duncan MD [address] [facility] [address] [place] [address] documented as of this encounter Visit Diagnoses [...] as of this encounter Care Teams Director Electronics Relationship Specialty Start Date End Date Marc Rodriguez MD [address] [facility] [address] [place] [address] PCP - General Adolescent Medicine 12/08/16 documented as of this encounter
--- OUTSIDE RECORDS SUMMARY | 2025-05-17 16:33 | XMS_ITS | Encounter Summary ---
Author Organization [facility] Address [address] [place] [address] Care Team Providers Care Property Preservation Specialist Name Role Phone Marc Rodriguez MD Primary Care Provider [phone] Edgardo Zuñiga MD Unavailable [phone] Giulia Briggs Unavailable [phone] Edgardo Zuñiga MD Unavailable [phone] Esther Mathew Unavailable [phone] Encounter Details Date Type Department Care Team (Late st Contact Info) Description 05/10/2025 Results Follow-Up [facility] [address] [place] [address] Preeti Delacruz Social History Tobacco Use Types Packs/Day Years [...] Result Encounter Note - Preeti Delacruz - 05/10/2025 9:36 AM EDT Spoke with pt and let her know documented in this encounter Plan of Treatment Upcoming Encounters Date Type Department Care Team (Nora steward Contact Info) Description 05/25/2025 2:10 PM EDT Office Visit [facility] [address] [place] [address] Esther Mathew PA [address] [place] [address] 09/11/2025 11:50 AM EST Office Visit [facility] [address] [place] [address] Suzan Galindo DO [address] [place] [address] 03/07/2026 9:20 AM EDT Office Visit [facility] Orthopaedic Surgery & Sports Medicine [address] [place] [address] Edgardo Zuñiga MD [address] [place] [address] documented as of this encounter [...] documented as of this encounter Care Teams Property Preservation Specialist Relationship Specialty Start Date End Date Marc Rodriguez MD [address] [place] [address] PCP - General 12/14/20 Edgardo Zuñiga MD [address] [place] [address] Surgeon Neurosurgery 03/04/21 Giulia Briggs PA [address] [place] [address] Physician Help Aid Neurosurgery 07/03/21 Edgardo Zuñiga MD [address] [place] [address] Surgeon Neurosurgery 09/16/21 Esther Mathew PA [address] [place] [address] Physician Help Aid Neurology 11/19/22 documented as of this encounter
--- OUTSIDE RECORDS SUMMARY | 2025-05-17 16:33 | XMS_ITS | Clinical Summary ---
Author Organization [facility] Address [address] [place] [address] Care Team Providers Care Terrazzo Supervisor Name Role Phone Marc Rodriguez MD Primary Care Provider [phone] Allergies Active Allergy Reactions Criticality Noted Date [...] as directed Every 14 (Fourteen) Days. Active baclofen (LIORESAL) 10 MG tablet Take 1 tablet by mouth 2 (Two) Times a Day. 03/09/20 25 Active Breo Ellipta 100-25 MCG/ACT aerosol powderIndicatio ns:Severe persistent asthma without complication Inhale 1 puff by mouth once daily 60 each 3 04/24/20 25 Active rosuvastatin (CRESTOR) 20 MG tablet Take 1 tablet by mouth once daily 90 tablet 1 05/04/20 25 Active Fluticasone Furoate-Vilante rol 100-25 MCG/ACT aerosol powderIndicatio ns:Severe persistent asthma without complication Inhale 1 puff Daily. 60 each 2 03/09/20 24 025 Discontinued rosuvastatin (CRESTOR) 20 MG tablet Take 1 tablet by mouth Daily. 90 tablet 02/11/20 25 025 Discontinued Active Problems Problem Noted [...] reassessed in 6 months. Discussed with patient [employer] [employer] and [place] [employer] provide detailed guidelines for accurate [...] (08/27/2021): Added automatically from request for surgery [id number] Lumbosacral radiculopathy at L5 04/22/2021 Overview (08/27/2021): Added automatically from request for surgery [id number] Chronic bilateral low back pain with bilateral s ciatica 04/22/2021 Overview (08/27/2021): Added automatically from request for surgery [id number] Spinal stenosis, lumbar clara on without neurogenic claudication 04/22/2021 Overview (08/27/2021): Added automatically from request for surgery [id number] Environmental and seasonal allergies 11/12/2020 Restless legs syndrome 11/12/2020 Adrenal insufficiency 02/22/2019 Overview (02/22/2019): chronic steroids - Cortef Rheumatoid arthritis 08/31/2018 Fibromyalgia 08/31/2018 Chronic cough 12/24/2017 Severe persistent asthma without complication Chronic allergic rhinitis 12/24/2017 Gastroesophageal reflux disease 12/24/2017 Encounters Date Type Department Care Team Description 05/04/2025 Refill [facility] CARDIOLOGY [address] [facility] [address] [place] [address] Jimmy Duncan MD Med Refill 04/22/2025 Refill [facility] PULMONARY & CRITICAL CARE MEDICINE [address] [place] [address] Kaitlin Joiner, TORI Severe persistent asthma without complication 03/13/2025 9:45 AM EDT Office Visit [facility] CARDIOLOGY [address] [facility] [address] [place] [address] Jimmy Duncan MD Primary hypertension (Primary Dx); Hyperlipidemia LDL goal <100; Chronic venous insufficiency of lower extremity 03/13/2025 Patient rounding ([facility] only) [facility] CARDIOLOGY [address] [facility] [address] [place] [address] Jimmy Duncan MD 03/13/2025 Travel 03/07/2025 Telephone [facility] CARDIOLOGY [address] [facility] [address] [place] [address] QAZI - LAB ORDERS 03/06/2025 Telephone [facility] CARDIOLOGY [address] [facility] [address] [place] [address] Jimmy Duncan MD from Last 3 Months Immunizations Immunization Administration [...] CENTER PULMONARY & CRITICAL CARE MEDICINE [address] [facility] [place] [address] 06/26/2025 10:00 AM EST Office Visit [facility] PULMONARY & CRITICAL CARE MEDICINE [address] [facility] [place] [address] Kaitlin Joiner, MATHEMATICAL ENGINEER [address] [place] [address] 09/12/2025 10:00 AM EST Office Visit [facility] CARDIOLOGY [address] [facility] [address] [place] [address] Jimmy Duncan MD [address] [facility] [address] [place] [address] Health Maintenance Due Date Last Done Comments [...] PCP: Marc Rodriguez MD Date: 03/13/2025 Department: [facility] CARDIOLOGY [address] [place] [address] [address] [facility] [address] Chief Complaint Patient presents with Hypertension Hyperlipidemia [...] Procedure Laterality Date APPENDECTOMY 1973 BREAST BIOPSY [id number] multiple CARDIAC CATHETERIZATION 03/13/2009 AE @ [facility]- [...] reassessed in 6 months. Discussed with patient [employer] [employer] and [place] [employer] provide detailed guidelines for accurate blood [...] any significant symptoms or [facility] if possible. Jimmy Duncan MD, [facility]. [facility] Part of this note may be an electronic production internship/translation of spokenlanguage to printed text using the Ling[employer]e Dictation System. Jimmy Duncan MD ECG ORDERABLES Final Result * LABS SCANNED (03/08/2025) Only the most recent of3 resultswithin the time period is included. Jimmy Duncan MD LAB BLOOD ORDERABLES Final Resu lt from [place] [address] [place] [address] MEDICARE A & B [facility] BL[employer] PPO Care Teams Terrazzo Supervisor Relationship Specialty Start Date End Date Marc Rodriguez MD [address] [facility] [address] [place] [address] PCP - General Adolescent Medicine 12/08/16
--- OUTSIDE RECORDS SUMMARY | 2025-05-17 16:33 | XMS_ITS | Encounter Summary ---
Author Organization [facility] Address [address] [place] [address] Care Team Providers Care Cloud Automation Tester Name Role Phone Marc Rodriguez MD Primary Care Provider [phone] Edgardo Zuñiga MD Unavailable [phone] Giulia Briggs Unavailable [phone] Edgardo Zuñiga MD Unavailable [phone] Esther Mathew Unavailable [phone] Reason for Visit * Reason Onset Date Comments HCN - Patient Message 05/09/2025 Encounter Details Date Type Department Care Team (Late st Contact Info) Description 05/09/2025 Telephone [facility] [address] [place] [address] Suzan Galindo DO [address] [facility] [address] [place] [address] HCN - Patient Message Social History Tobacco Use Types Packs/Day Years [...] encounter Miscellaneous Notes * Telephone Encounter - Nubia Preeti Ledezma - 05/09/2025 4:17 PM EDT Called pt back and let her know that labs hasn't been reviewed yet. * Telephone Encounter - Dona Fuentes Shantanu - 05/09/2025 3:30 PM EDT Clinical Concern/Question Reason for Call: Dr. Sanchez pt. This pt cannot get into her mychart to check her results of her labwork. She is requesting a call back from the clinic for the results. Best contact number: [phone] (mobile) Optimal time of day to reach caller: ANYTIME Additional comments/information from caller: None Note: Please do not reply to this message. Follow-up communication and further actions as a result of this message need to be communicated with the patient directly, if the patient is not active onMyChart. If the patient is active on MyChart, they will receive notification of the communication/outcome via [employer]. documented in this encounter Plan of Treatment Upcoming Encounters Date Type Department Care Team (Late st Contact Info) Description 05/25/2025 2:10 PM EDT Office Visit [facility] [address] [place] [address] Esther Mathew, PA [address] [place] [address] 09/11/2025 11:50 AM EST Office Visit [facility] [address] [place] [address] Suzan Galindo DO [address] [place] [address] 03/07/2026 9:20 AM EDT Office Visit [facility] Surgery & Sports Medicine [address] [place] [address] Edgardo Zuñiga MD [address] [place] [address] documented as of this encounter Visit Diagnoses [...] documented as of this encounter Care Teams Cloud Automation Tester Relationship Specialty Start Date End Date Marc Rodriguez MD [address] [place], [place] [id number] PCP - General 12/14/20 Edgardo Zuñiga MD [address] [place] [address] Surgeon Neurosurgery 03/04/21 Giulia Briggs PA [address] [place] [address] Physician Asset Management Analyst Neurosurgery 07/03/21 Edgardo Zuñiga MD [address] [place] [address] Surgeon Neurosurgery 09/16/21 Esther Mathew PA [address] [place] [address] Physician Asset Management Analyst Neurology 11/19/22 documented as of this encounter
--- OUTSIDE RECORDS SUMMARY | 2025-05-17 16:33 | XMS_ITS | Clinical Summary ---
Author Organization [facility] Address [address] [place] [address] Care Team Providers Care Cellophane Worker Name Role Phone Marc Rodriguez MD Primary Care Provider [phone] Edgardo Zuñiga MD Unavailable [phone] Giulia Briggs Unavailable [phone] Edgardo Zuñiga MD Unavailable [phone] Esther Mathew Unavailable [phone] Allergies Active Allergy Reactions Criticality Noted Date [...] tablet by mouth once daily 30 tablet 05/14/20 25 Active donepezil (Aricept) 23 MG tablet Take 1 tablet by mouth once daily 30 tablet 1 03/01/20 25 025 Discontinued donepezil (Aricept) 23 MG tablet Take 1 tablet by mouth once daily 30 tablet 04/18/20 25 025 Discontinued Active Problems Problem Noted Date Diagnosed Date Thoracic myelopathy 11/08/2024 TIA (transient ischemic attack) 03/27/2024 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 03/18/2024 Motor speech disorder 02/10/2022 Obesity (BMI 30.0-34.9) 10/17/2021 Laryngopharyngeal reflux 10/01/[address] 08/13/2021 Cervical radiculopathy 07/31/2021 Hypothyroidism 07/30/2021 CKD (chronic kidney disease) 07/30/2021 Cervical cord compression with myelopathy 2020 Overview (07/02/2021): Added automatically from request for surgery [id number] Chronic bilateral low back pain with bilateral s ciatica 04/22/2021 Overview (04/22/2021): Added automatically from request for surgery [id number] Environmental and seasonal allergies 11/12/2020 Restless legs [...] Problem Noted Date Diagnosed Date Resolved Date Spasticity 11/08/2024 05/14/2025 Pain 05/12/2024 05/14/2025 Total self-care deficit 02/10/2022 092 08/2024 Lumbar stenosis with neurogenic claudication 10/18/2021 Decreased activity tolerance 07/30/2021 04/23/2025 Lumbosacral radiculopathy at L5 04/22/2021 10/18/2021 Overview (04/22/2021): Added automatically from request for surgery [id number] Spinal stenosis, lumbar clara on without neurogenic claudication 04/22/2021 10/18/2021 Overview (04/22/2021): Added automatically from request for surgery [id number] Spondylolisthesis at L4-L5 level 04/22/2021 10/18/2021 Overview (04/22/2021): Added automatically from request for surgery [id number] S/P insertion of intrathecal pump 10/18/2018 04/23/2025 AVN (avascular necrosis of bone) 08/30/2018 07/30/2021 Rotator cuff arthropathy 08/30/2018 Decreased range of motion of shoulder 07/22/2018 07/30/2021 Humeral fracture 04/01/2018 07/30/2021 Biceps tendonitis 04/01/2018 07/30/2021 Rotator cuff dysfunction 04/01/2018 Purpura 06/19/2017 07/30/2021 Itching 06/02/2017 07/30/2021 Status migrainosus 08/08/2015 Encounters Date Type Department Care Team Description 05/13/2025 Refill [place] [facility] [address] [place] [address] Esther Mathew, JAMES 05/10/2025 Results Follow-Up [facility] [address] [place] [address] Nubia Preeti Brisa 05/09/2025 Telephone [facility] [address] [place] [address] Suzan Galindo, HCN - Patient Message 05/09/2025 Travel 05/08/2025 Orders Only [facility] [address] [place] [address] Suzan Galindo, High risk medication use (Primary Dx) 05/08/2025 Telephone [facility] [address] [place] [address] Suzan Galindo, HCN Clinical Concern/Question 04/17/2025 Refill [place] [facility] [address], [address] [place] [address] Esther Mathew PA 04/07/2025 Telephone [facility] [address] [place] [address] Suzan Galindo DO HCN Clinical Concern/Question 03/10/2025 Orders Only [facility] [address] [place] [address] Suzan Galindo, 03/10/2025 Refill [facility] [address] [place] [address] Suzan Galindo, 03/10/2025 Results Follow-Up [facility] [address] [place] [address] Suzan Galindo, 03/09/2025 1:20 PM EDT Office Visit [facility] [address] [place] [address] Suzan Galindo DO High risk medication use (Primary Dx); Total self-care deficit; Impaired cognition; Cervical cord compression with myelopathy ([facility]) 03/09/2025 Travel 03/08/2025 2:06 PM EDT - 03/08/2025 11:59 PM EDT Hospital Encounter [facility] [address] [place] [address] S/P lumbar fusion Discharge Disposition: Home or Self Care 03/08/2025 1:40 PM EDT Office Visit [facility] Orthopa[facility] Surgery & Sports Medicine [address] [place] [address] Edgardo Zuñiga MD S/P lumbar fusion (Primary Dx) 03/08/2025 Travel 03/07/[address] [facility] [address], [address] [place] [address] Edgardo Zuñiga MD S/P lumbar fusion (Primary Dx) 02/28/[address] [facility] [address], [address] [place] [address] Esther Mathew, PA from Last [...] Visit [place] [facility] [address] [place] [address] Esther Mathew, JAMES [address] [place] [address] 09/11/2025 11:50 AM EST Office Visit [facility] [address] [place] [address] Suzan Galindo DO [address] [place] [address] 03/07/2026 9:20 AM EDT Office Visit [facility] [address] [place] [address] Edgardo Zuñiga MD [address] [place] [address] Health Maintenance Due Date Last Done Comments [facility]-Bone Density Scan 1955 [facility]-Medicare Annual Wellness (AWV) 1955 [facility]-/Child/Adol SDOH Screenings 1955 [facility]- SDOH Screenings 11/01/1971 [facility]-Adult SDOH Screenings 11/01/1971 CT Colonography 1998 Colonoscopy 1998 FIT-DNA 1998 FIT 1998 FOBT 1998 Sigmoidoscopy 1998 [facility]-Colorectal Cancer Screening 1998 [facility]-Breast Cancer Screening 11/01/2003 OCQ-BLAFD-18 Vaccine ( season) 2025 07/15/2023, 04/30/2022, 12/19/2021, [...] 03/11/2022, 03/25/2019, 03/10/2016 [facility]-Zoster Vaccines Completed 05/29/2023, 06/21/202 3 [facility]-RSV Vaccine: 60+ Years or Completed 08/13/2023 [...] this topic Medical Devices Implanted Type Area Rotary Shear Operator Device Identifier Shelf Expiration Date Model / Serial / Lot Cif Ui H 8mm 8deg S - [id number] Implanted:Qty : 1 on 07/31/2021 by Edgardo Zuñiga MD at [facility] Cage N/A: Spine Cervical DePuy Spine Sales LP-[id number] 01/31/2024 [id number] / / [id number] Synchromed Iii Implanted:Qty : 1 on 10/09/2023 Pain Pump Abdomen Medtronic 8667-20 / [id number] / One Level Plate, 12mm - S. - [id number] Implanted:Qty : 1 on 07/31/2021 by Edgardo Zuñiga MD at [facility] Plate N/A: Spine Cervical [employer] LP-087516 07/31/2021 [id number] / . / Pre-Lordosed Joe W/ Line 40mm - [id number] Implanted:Qty : 2 on 10/16/2021 by Edgardo Zuñiga MD at [facility] Joe Spine Lumbar [employer] LP-[id number] 10/16/2022 [id number] / / Self Drilling Screw 16mm - S. - [id number] Implanted:Qty : 4 on 07/31/2021 by Edgardo Zuñiga MD at [facility] Screw N/A: Spine Cervical [employer] Sp[employer] LP-[id number] 07/31/2022 [id number] / . / Screw 5.5mm Viper Ti Fen Crtcl Polyax 8mm X 50mm - [id number] Implanted:Qty : 4 on 10/16/2021 by Edgardo Zuñiga MD at [facility] Screw Spine Lumbar [employer] LP-[id number] 10/16/2022 [id number] / / Spinal Cord Stimulator Spinal Cord Stimulator [facility] Med ePad [id number] / [id number] / Description:LEADS (2): MODEL # 2218-50 Graft Vivigen 1cc - [id number] Implanted:Qty : 1 on 07/31/2021 by Edgardo Zu[facility]iga MD at [facility]813624 07/15/2022 BL-1500-001 / / [id number] Graft Vivigen 5cc - [id number] Implanted:Qty : 1 on 10/16/2021 by Edgardo Zuñiga MD at [facility] Spine Lumbar [id number] 10/11/2022 BL-1500-002 / / [id number] Post Ibf Ui H 12mm 8deg 24/04 - [id number] Implanted:Qty : 1 on 10/16/2021 by Edgardo Zuñiga MD at [facility] Spine Lumbar [employer] LP-[id number] 02/01/2022 [id number] / / Post Ibf Ui H 12mm 8deg 24/04 - [id number] Implanted:Qty : 1 on 10/16/2021 by Edgardo Zuñiga MD at [facility] Spine Lumbar [employer] LP-[id number] 05/02/2025 [id number] / / Single Inner Setscrew - [id number] Implanted:Qty : 4 on 10/16/2021 by Edgardo Zuñiga MD at [facility] Spine Lumbar [employer] Sp[employer] LP-[id number] 10/16/2022 [id number] / / Graft Vivigen 15cc - [id number] - [id number] Implanted:Qty : 1 on 03/18/2024 by Edgardo Zuñiga MD at [facility] N/A: Spine Lumbar [facility]-035129 02/02/2025 -1500-004 -[id number] / [id number] / [id number] Screw 5.5mm Viper Ti Fen Crtcl Polyax 7mm X 50mm - [id number] Implanted:Qty : 3 on 03/18/2024 by Edgardo Zuñiga MD at [facility] N/A: Spine Lumbar [employer] LP-044031 [id number] / / Single Inner Setscrew - [id number] Implanted:Qty : 6 on 03/18/2024 by Edgardo Zuñiga MD at [facility] N/A: Spine Lumbar [employer] Sp[employer] LP-145616 [id number] / / Pre-Lordosed Joe W/ Line 65mm - [id number] Implanted:Qty : 2 on 03/18/2024 by Edgardo Zuñiga MD at [facility] N/A: Spine Lumbar [employer] Spine [employer] LP-150566 [id number] / / Procedures Procedure Name Priority Date/Time Associated Diagnosis Comments COMPREHENSIVE METABOLIC PANEL, PLASMA Routine 05/09/2025 10:40 AM EDT High risk medication use COMPREHENSIVE METABOLIC PANEL, PLASMA Routine 03/09/2025 2:40 PM EDT High risk medication use XR LUMBAR SPINE 4 VIEWS TO INCLUDE FLEXION EXTENSION Routine 03/08/2025 2:40 PM EDT S/P lumbar fusion HEPATITIS C ANTIBODY - ED W/REFLEX TO HCV QUANT PCR STAT 04/25/2024 10:55 PM EDT from Last 3 Months or Most Recently Relevant to Health Maintenance Results * (ABNORMAL) Comprehensive metabolic panel (05/09/2025 10:40 AM EDT) Only the most recent of2 resultswithin the time period is included. Glucose, Plasma 89 74 - 99 mg/dL 05/09/2025 12:33 PM EDT [facility] BUN, Plasma 15 8 - 23 mg/dL 05/09/2025 12:33 PM EDT [facility] Creatinine, Plasma 0.63 0.60 - 1.10 mg/dL 05/09/2025 12:33 PM EDT [facility] BUN/Creatinine Ratio 24 05/09/2025 12:33 PM EDT [facility] Sodium, Plasma 147(H) 136 - 145 mmol/L 05/09/2025 12:33 PM EDT [facility] Potassium, Plasma 4.8 3.6 - 4.9 mmol/L 05/09/2025 12:33 PM EDT [facility] Chloride, Plasma 107 97 - 107 mmol/L 05/09/2025 12:33 PM EDT [facility] CO2, Plasma 31(H) 22 - 29 mmol/L 05/09/2025 12:33 PM EDT [facility] Anion Gap 9 6 - 16 mmol/L 05/09/2025 12:33 PM EDT [facility] Total Calcium, Plasma 9.7 8.9 - 10.2 mg/dL 05/09/2025 12:33 PM EDT [facility] Total Protein 6.3 6.3 - 7.9 g/dL 05/09/2025 12:33 PM EDT [facility] Albumin, Plasma 3.5 3.5 - 5.2 g/dL 05/09/2025 12:33 PM EDT [facility] AST, Plasma 39(H) 10 - 35 U/L 05/09/2025 12:33 PM EDT [facility] ALT, Plasma 25 10 - 35 U/L 05/09/2025 12:33 PM EDT [facility] Alkaline Phosphatase, Plasma 103 46 - 142 U/L 05/09/2025 12:33 PM EDT [facility] Total Bilirubin, Plasma 0.5 0.2 - 1.1 mg/dL 05/09/2025 12:33 PM EDT [facility] eGFRcr 95.0 mL/min/1.7 3m*2 05/09/2025 12:33 PM EDT [facility] Comment:Reported eGFRcr in m L/min/1.73m2 is based the CKD-EPI 2020 equation that does not use a race coefficient. Blood Venous blood specimen / Unknown Venipuncture / Unknown 05/09/2025 10:40 AM EDT 05/09/2025 10:41 AM EDT us Suzan Sanchez DO LAB BLOOD ORDERABLES Final Result [facility] [address] [place] [address] * XR Lumbar Spine 4+ Views w [...] Antibody Negative Negative 04/25/2024 11:46 PM EDT [facility] Blood Venous blood specimen / Unknown Venipuncture / Unknown 04/25/2024 10:55 PM EDT 04/25/2024 11:05 PM EDT us Yelena Mcqueen MD LAB BLOOD ORDERABLES Final Res ult [facility] [address] [place] [address] from Last 3 Months or Most Recently Relevant to Health Maintenance Insurance MEDICARE [facility] Advance Directives * Full Code (Latest [...] Patient has decision-making capacity? Yes Care Teams Cellophane Worker Relationship Specialty Start Date End Date Marc Rodriguez MD [address] [place] [address] PCP - General 12/14/20 Edgardo Zuñiga MD [address] [place] [address] Surgeon Neurosurgery 03/04/21 Giulia Briggs PA [address] [place] [address] Physician Dot Net Developer Neurosurgery 07/03/21 Edgardo Zuñiga MD [address] [place] [address] Surgeon Neurosurgery 09/16/21 Esther Mathew PA [address] [place] [address] Physician Dot Net Developer Neurology 11/19/22
--- OUTSIDE RECORDS SUMMARY | 2025-05-17 16:33 | XMS_ITS | Encounter Summary ---
[facility] [address] [place] [address] Care Team Providers Care Central Processing Technician Name Role Phone Marc Rodriguez MD Primary Care Provider Encounter Details Date Type Department Care Team (Late st Contact Info) Description 11/13/2014 External CPT II STAGECRAFT TEACHER - [facility] Social History Tobacco [...] PULMONARY & CRITICAL CARE MEDICINE [address] [place] [address] 06/26/2025 10:00 AM EST Office Visit [facility] PULMONARY & CRITICAL CARE MEDICINE [address] [place] [address] Kaitlin Joiner, CLERICAL ASSISTANT [address] [place] [address] 09/12/2025 10:00 AM EST Office Visit [facility] CARDIOLOGY [address] [place] [address] Jimmy Duncan MD [address] [facility] [address] [place] [address] documented as of this encounter Visit Diagnoses [...] documented as of this encounter Care Teams Central Processing Technician Relationship Specialty Start Date End Date Marc Rodriguez MD [address] [facility] [address] [place] [address] PCP - General Adolescent Medicine 12/08/16 documented as of this encounter
--- OUTSIDE RECORDS SUMMARY | 2025-05-17 16:33 | XMS_ITS | Encounter Summary ---
Author Organization Healthcare Address [address] [place] [address] Care Team Providers Care Director Orange Name Role Phone Marc Rodriguez MD Primary Care Provider [phone] Edgardo Zuñiga MD Unavailable [phone] Giulia Briggs Unavailable [phone] Edgardo Zuñiga MD Unavailable [phone] Esther Mathew Unavailable [phone] Reason for Visit * Reason Comments Med Refill Encounter Details Date Type Department Care Team (Late st Contact Info) Description 05/13/2025 Refill [place] [facility] [address] [place] [address] Esther Mathew PA [address] [place] [address] Social History Tobacco Use Types [...] the past 12 months has th e [employer], gas, oil, or water Primedic threatened to shut off services in your home? No 05/13/2024 Comments No Sex and Gender Information Value Date Recorded Sex Assigned at Female 07/31/2021 6:10 AM EST Legal Sex Female 8:40 PM EDT Gender Identity Female 07/31/2021 6:10 AM EST Sexual Orientation Not on file documented as of this encounter Miscellaneous Notes * Telephone Encounter - Betsy Monson RN - 05/14/2025 7:34 PM EDT 1 medication(s) has been approved per protocol. Must keep upcoming 05/25/2025 appt for additional refills. documented in this encounter Plan of Treatment Upcoming Encounters Date Type Department Care Team (Late st Contact Info) Description 05/25/2025 2:10 PM EDT Office Visit [facility] [address] [place] [address] Esther Mathew PA [address] [place] [address] 09/11/2025 11:50 AM EST Office Visit [facility] [address] [place] [address] Suzan Galindo DO [address] [place] [address] 03/07/2026 9:20 AM EDT Office Visit [facility] Orthopaedic Surgery & Sports Medicine [address] [place] [address] Edgardo Zuñiga MD [address] [place] [address] documented as of this encounter [...] as of this encounter Care Teams Director Orange Relationship Specialty Start Date End Date Marc Rodriguez MD [address] [place] [address] PCP - General 12/14/20 Edgardo Zuñiga MD [address] [place] [address] Surgeon Neurosurgery 03/04/21 Giulia Briggs PA [address] [place] [address] Physician Paper Box Cutter Neurosurgery 07/03/21 Edgardo Zuñiga MD [address] [place] [address] Surgeon Neurosurgery 09/16/21 Esther Mathew PA [address] [place] [address] Physician Paper Box Cutter Neurology 11/19/22 documented as of this encounter
--- OUTSIDE RECORDS SUMMARY | 2025-05-17 16:33 | XMS_ITS | Encounter Summary ---
[facility] [address] [place] [address] Care Team Providers Care Automation Sales Manager Name Role Phone Marc Rodriguez MD Primary Care Provider [phone] Encounter Details Date Type Department Care Team (Late st Contact Info) Description 10/12/2014 External CPT II MORTGAGE LOAN COORDINATOR - [facility] Social History Tobacco Use [...] Description 06/26/2025 9:30 AM EST Procedure visit [facility] PULMONARY & CRITICAL CARE MEDICINE [address] [place] [address] 06/26/2025 10:00 AM EST Office Visit [facility] PULMONARY & CRITICAL CARE MEDICINE [address] [place] [address] Kaitlin Joiner, NIGHT WORKER [address] [place] [address] 09/12/2025 10:00 AM EST Office Visit [facility]IOLOGY [address] [place] [address] Jimmy Duncan MD [address] [facility] [address] [place] [address] documented as of this encounter Visit Diagnoses [...] documented as of this encounter Care Teams Automation Sales Manager Relationship Specialty Start Date End Date Marc Rodriguez MD [address] [facility] [address] [place] [address] PCP - General Adolescent Medicine 12/08/16 documented as of this encounter
--- OUTSIDE RECORDS SUMMARY | 2025-05-17 16:33 | XMS_ITS | Encounter Summary ---
Author Organization Healthcare Address [address] [place] [address] Care Team Providers Care Dyed Raw Stock Blower Feeder Name Role Phone Marc Rodriguez MD Primary Care Provider [phone] Edgardo Zuñiga MD Unavailable [phone] Giulia Briggs Unavailable [phone] Edgardo Zuñiga MD Unavailable [phone] Esther Mathew Unavailable [phone] Reason for Visit * Reason Onset Date Comments Med Refill 07/05/2024 Encounter Details Date Type Department Care Team (Late st Contact Info) Description 07/05/2024 Refill [place] [facility] [address] [place] [address] Esther Mathew PA [address] [place] [address] Social History Tobacco Use Types [...] the past 12 months has th e [employer], gas, oil, or water company threatened to [...] Description 05/25/2025 2:10 PM EDT Office Visit [facility] [address] [place] [address] Esther Mathew PA [address] [facility] [address] [place] [address] 09/11/2025 11:50 AM EST Office Visit [facility] [address] [place] [address] Suzan Galindo DO [address] [place] [address] 03/07/2026 9:20 AM EDT Office Visit [facility] Orthopaedic Surgery & Sports Medicine [address] [place] [address] Edgardo Zuñiga MD [address] [facility] [address] [place] [address] documented as of this encounter [...] documented as of this encounter Care Teams Dyed Raw Stock Blower Feeder Relationship Specialty Start Date End Date Marc Rodriguez MD [address] [place] [id number] PCP - General 12/14/20 Edgardo Zuñiga MD [address] [place] [address] Surgeon Neurosurgery 03/04/21 Giulia Briggs PA [address] [place] [address] Physician Instrumental Musician Neurosurgery 07/03/21 Edgardo Zuñiga MD [address] [place] [address] Surgeon Neurosurgery 09/16/21 Esther Mathew PA [address] [place] [address] Physician Instrumental Musician Neurology 11/19/22 documented as of this encounter
--- OUTSIDE RECORDS SUMMARY | 2025-05-17 16:33 | XMS_ITS | Encounter Summary ---
Author Organization Healthcare Address [address] [place] [address] Care Team Providers Care Chief Controller Station Name Role Phone Marc Rodriguez MD Primary Care Provider [phone] Edgarod Zuñiga MD Unavailable [phone] Giulia Briggs Unavailable [phone] Edgardo Zuñiga MD Unavailable [phone] Esther Mathew Unavailable [phone] Encounter Details Date Type Department Care Team (Late st Contact Info) Description 12/16/2023 Orders Only External Location [address] [place] [address] Provider, External Social History Tobacco Use Types [...] Description 05/25/2025 2:10 PM EDT [facility] [address] [place] [address] Esther Mathew PA [address] [place] [address] 09/11/2025 11:50 AM EST Office Visit [facility] [address] [address] Ryan LauraSuzan matt, [address] [place] [address] 03/07/2026 9:20 AM EDT Office Visit [facility] Orthopaedic Surgery & Sports Medicine [address] [place] [address] Edgardo Zuñiga MD [address] [facility] [address] [place] [address] documented as of this encounter [...] as of this encounter Care Teams Chief Controller Station Relationship Specialty Start Date End Date Marc Rodriguez MD [address] [place] [address] PCP - General 12/14/20 Edgardo Zuñiga MD [address] [place] [address] Surgeon Neurosurgery 03/04/21 Giulia Briggs PA [address] [place] [address] Physician Cbx Operator Neurosurgery 07/03/21 Edgardo Zuñiga MD [address] [place] [address] Surgeon Neurosurgery 09/16/21 Esther Mathew PA [address] [place] [address] Physician Cbx Operator Neurology 11/19/22 documented as of this encounter
--- OUTSIDE RECORDS SUMMARY | 2025-05-17 16:33 | XMS_ITS | Encounter Summary ---
Author Organization [facility] Address [address] [place] [address] Care Team Providers Care Knitting Supervisor Name Role Phone Marc Rodriguez MD Primary Care Provider [phone] Encounter Details Date Type Department Care Team (Late st Contact Info) Description 06/18/2015 External CPT II [facility] - [facility] Social History Tobacco [...] 9:30 AM EST Procedure visit [facility] PULMONARY & CRITICAL CARE MEDICINE [address] [place] [address] 06/26/2025 10:00 AM EST Office Visit [facility] PULMONARY & CRITICAL CARE MEDICINE [address] [place] [address] Kaitlin Joiner, SPANISH MEDICAL INTERPRETER [address] [place] [address] 09/12/2025 10:00 AM EST Office Visit [facility] CARDIOLOGY [address] [place] [address] Jimmy Duncan MD [address] [facility] [address] [place] [address] documented as of this encounter Visit Diagnoses [...] documented as of this encounter Care Teams Knitting Supervisor Relationship Specialty Start Date End Date Marc Rodriguez MD [address] [facility] [address] [place] [address] PCP - General Adolescent Medicine 12/08/16 documented as of this encounter
--- OUTSIDE RECORDS SUMMARY | 2025-05-17 16:33 | XMS_ITS ---
Author Organization [facility] Address [address] [place] [address] Care Team Providers Care Sports Attorney Name Role Phone Marc Rodriguez MD Primary Care Provider [phone] Asthma - External Fill Status:Enrolled (Active) Start date:05/10/2024 Enrollment date:05/10/2024 Enrollment reason:Identified as being on target medication Current support & services provided:Refill Coordination , Benefits Investigation, Prior Authorization, External Pharmacy Dispensing Linked medications:Dupilumab () Linked problems:Severe persistent asthma without complication (Active) Continued Care and Services Coordination
--- OUTSIDE RECORDS SUMMARY | 2025-05-17 16:33 | XMS_ITS | Encounter Summary ---
Author Organization [facility] Address [address] [place] [address] Care Team Providers Care Clerical Support Specialist Name Role Phone Marc Rodriguez MD Primary Care Provider [phone] Reason for Visit * Reason Comments Med Refill Encounter Details Date Type Department Care Team (Late st Contact Info) Description 05/04/2025 Refill [facility] CARDIOLOGY [address] [facility] [address], [place] [address] Jimmy Duncan MD [address] [facility] [address], [place] [address] Med Refill Social History Tobacco Use Types [...] encounter Miscellaneous Notes * Telephone Encounter - Irma Hooper MA - 05/04/2025 9:30 AM EDT Rx Refill Note Requested Prescriptions Pending Prescriptions Disp Refills rosuvastatin (CRESTOR) 20 MG tablet [Pharmacy Med Name: Rosuvastatin Calcium 20 MG Oral Tablet] 90 tablet 0 Sig: Take 1 tablet by mouth once daily Last office visit with prescribing clinician: 03/13/2025 Last telemedicine visit with prescribing clinician: Visit date not found Next office visit with prescribing clinician: 09/12/2025 Pharmacy Info Last Fill Date: Rx Written Date: Prescribed Qty: Additional Details from Pharmacy: Patient passed protocols per marco. Irma Hooper MA 05/04/25, 09:30 EDT documented in this encounter Plan of Treatment Upcoming Encounters Date Type Department Care Team (Late st Contact Info) Description 06/26/2025 9:30 AM EST Procedure visit [facility] PULMONARY & CRITICAL CARE MEDICINE [address] [place] [address] 06/26/2025 10:00 AM EST Office Visit [facility] PULMONARY & CRITICAL CARE MEDICINE [address] [place] [address] Kaitlin Joiner, MACHINE LEATHER TRIMMER [address] [place] [address] 09/12/2025 10:00 AM EST Office Visit [facility] CARDIOLOGY [address] [facility] [address] [place] [address] Jimmy Duncan MD [address] [facility] [address] [place] [address] documented as of this encounter Visit Diagnoses Not on filedocumented in this encounter Care Teams Clerical Support Specialist Relationship Specialty Start Date End Date Marc Rodriguez MD [address] [facility] [address] [place] [address] PCP - General Adolescent Medicine 12/08/16 documented as of this encounter
[2025-05-17 16:34] LABS: Coronavirus 19, PCR Not Detected (NotDetected); Influenza A, PCR Not Detected (NotDetected); Influenza B, PCR Not Detected (NotDetected)
--- NOTE | 2025-05-17 16:40 | CT_ITS ---
PROCEDURE INFORMATION: Exam: CT Abdomen And Pelvis With Contrast Exam date and time: 05/17/2025 5:41 PM Age: 69 years old Clinical indication: Abdominal pain; Additional info: Bilateral lower quadrant abdominal tenderness TECHNIQUE: Imaging protocol: Computed tomography of the abdomen and pelvis with contrast. Radiation optimization: All CT scans at this facility use at least one of these dose optimization techniques: automated exposure control; mA and/or kV adjustment per patient size (includes targeted exams where dose is matched to clinical indication); or iterative reconstruction. Contrast material: ISOVUE; Contrast volume: 75 ml; Contrast route: IV; COMPARISON: CT ABDOMEN PELVIS W CON 09/26/2024 10:46 PM FINDINGS: Tubes, catheters and devices: Thoracic spine device. Lungs: Mild scarring and atelectasis in the lower lungs. Heart: Borderline cardiomegaly. Coronary arteries: Coronary artery calcifications. Liver: Normal. No mass. Gallbladder and biliary ducts: Mild post cholecystectomy ectasia. Gallbladder is absent. Pancreas: Mild pancreatic atrophy. Spleen: Normal. No splenomegaly. Adrenal glands: Normal. No mass. Kidneys and ureters: There is a nonobstructing 5 mm calculus in the left renal pelvis. Moderate left renal scarring. Stomach and bowel: Dilated segments of small bowel extending to the anastomosis with the rectosigmoid colon. Most of the colon is surgically absent. Appendix: No evidence of appendicitis. Intraperitoneal space: Unremarkable. No free air. No significant fluid collection. Vasculature: The arteries demonstrate mild atherosclerotic disease. There are phleboliths near the ureters bilaterally. Lymph nodes: Unremarkable. No enlarged lymph nodes. Urinary bladder: Unremarkable as visualized. Reproductive: Status post hysterectomy. Bones/joints: Status post total right hip arthroplasty. The hardware appears intact. Posterior fusion of L3-L5. Hardware appears intact. Soft tissues: Unremarkable. Other findings: Stigmata of old granulomatous disease. IMPRESSION: 1. Dilated segments of small bowel extending to the anastomosis with the rectosigmoid colon. This appearance is partially postoperative, however, please correlate for evidence of enterocolitis with mild ileus. Partial small bowel obstruction is less likely given the wide patency of the anastomosis. 2. There is a nonobstructing 5 mm calculus in the left renal pelvis.
--- NOTE | 2025-05-17 16:40 | XR_ITS ---
PROCEDURE INFORMATION: Exam: XR Chest Exam date and time: 05/17/2025 5:46 PM Age: 69 years old Clinical indication: Cough TECHNIQUE: Imaging protocol: Radiologic exam of the chest. Views: 1 view. COMPARISON: CR XR CHEST 2V 02/08/2024 12:29 AM FINDINGS: Tubes, catheters and devices: Thoracic spinal device. Lungs: Stigmata of old granulomatous disease. Mild scarring and atelectasis in the lower lungs. Pleural spaces: Unremarkable. No pleural effusion. No pneumothorax. Heart/Mediastinum: Borderline cardiomegaly. Vasculature: Vascular calcifications. Bones/joints: Postsurgical changes of the right shoulder and lower cervical spine. Visible hardware appears intact Organs: Gallbladder is absent. IMPRESSION: No acute findings.
--- NOTE | 2025-05-17 16:45 | CA_ITS ---
FINAL REPORT CLINICAL HISTORY: body aches, RLE edema, erythema. Currently taking 81 mg ASA daily. COMPARISON: None FINDINGS: DUPLEX VENOUS SONOGRAPHY OF THE RIGHT LOWER EXTREMITY Multiple transverse and longitudinal scans were performed of the femoropopliteal deep venous system, with augmentation and compression maneuvers. HISTORY: Pain and edema FINDINGS: Normal phasic flow was noted in the visualized deep venous system. No intraluminal increased echogenicity is noted to suggest thrombus. There is normal compression and augmentation of the venous structures. No abnormal venous collaterals are seen. IMPRESSION: No evidence of deep venous thrombosis of the right lower extremity. Reviewed, Interpreted and Dictated by Jacquelyn Hurtado MD Transcribed by Lucero Reddy Authenticated and . [facility]
[2025-05-17 17:01] VITALS: BP 164/99; PULSE 82; O2SAT 95
[2025-05-17 17:04] LABS: Albumin Level 4.0 g/dl (3.5-5.0); Chloride 99 mmol/L (98-107); Potassium 4.2 mmoL/L (3.5-5.1); Sodium 138 mmol/L (136-145)
[2025-05-17 17:06] LABS: Alanine Aminotransferase 27 U/L (12-78); Aspartate Amino Transferase 60 U/L (14-36); Blood Urea Nitrogen 13 mg/dl (7-17); Creatinine Clearance Estimated 63 mL/min (50-200); Creatinine,Serum 0.70 mg/dl (0.52-1.04); Estimated Glomerular Filt Rate 82 ml/min (>60); GFR (African American) 100 ML/MIN (>60)
[2025-05-17 17:07] LABS: Albumin/Globulin Ratio 1.1 (1.1-1.8); Alkaline Phosphatase 127 U/L (38-126); Anion Gap 12.2 mEq/L (5-15); Bilirubin,Total 0.8 mg/dl (0.2-1.3); Calcium 8.8 mg/dl (8.4-10.2); Carbon Dioxide 31 mmol/L (22.0-30.0); Creatine Kinase 33 U/L (30-135); Globulin 3.5 g/dL (1.3-3.2); Glucose 87 mg/dl (74-100); Lipase 90 U/L (23-300); Total Protein,Serum 7.5 g/dl (6.3-8.2)
[2025-05-17 17:08] LABS: Hematocrit 39.8 % (37.0-47.0); Hemoglobin 13.3 g/dL (12.2-16.2); Immature Granulocytes % 1.2 %; Mean Corpuscular HGB Conc 33.4 g/dL (31.8-35.4); Mean Corpuscular Hemoglobin 33.1 pg (27.0-31.2); Mean Corpuscular Volume 99.0 fl (81-99); Nucleated Red Blood Cells % 0 %; Platelet Count 120 K/mm3 (142-424); Red Blood Count 4.02 M/mm3 (4.20-5.40); Red Cell Distribution Width-SD 50.1 fL; White Blood Count 6.0 K/mm3 (4.8-10.8)
[2025-05-17 17:10] LABS: Microscopic, Urine URINE MICROSCOPIC (MICROSCOPIC)
[2025-05-17 17:12] LABS: Bilirubin,Urine Negative (Negative); Color,Urine YELLOW (Yellow); Glucose,Urine (UA) Negative (Negative); Ketones,Urine Negative (Negative); Leukocyte Esterase,Urine 1+ (Negative); PH,Urine 7.0 (5.0-8.5); Protein,Urine 2+ (Negative); Specific Gravity, Urine 1.025 (1.005-1.030); Urobilinogen,Urine 1.0 EU/dl (0.2)
--- NOTE | 2025-05-17 17:14 | ECG_ITS ---
APPROVED REPORT Exam: Resting ECG HR:77 bpm ECG Measurements Heart Rate 77 AXES VA 175 P 63 QRSd 85 QRS 7 QT 409 T 35 QTc 441 Conclusion EKG difficult to interpret secondary to baseline artifact Electronically signed by : Quintin Newman, 05/18/2025 03:07:37
[2025-05-17 17:17] LABS: NT Pro Brain Natriuretic Pep. 627 pg/mL (0-125)
--- NOTE | 2025-05-17 17:22 | [facility].EDGENADL ---
Discharge Plan Disposition Patient Disposition: Home, Self-Care Condition: Good Prescriptions Prescriptions: No Action levothyroxine 88 mcg tablet 88 mcg PO DAILY hydrocortisone 5 mg tablet 5 mg PO BID Patient Comments: TAKE ONE TABLET BY MOUTH TWICE DAILY duloxetine [Cymbalta] 60 mg capsule,delayed release(DR/EC) 60 mg PO BID Patient Comments: TAKE 1 CAPSULE BY MOUTH TWICE DAILY rosuvastatin [Crestor] 20 mg tablet 20 mg PO HS Patient Comments: TAKE 1 TABLET BY MOUTH ONCE DAILY FOR 90 DAYS Ubrelvy 100 mg tablet 100 mg PO DAILYP PRN (Reason: migraine headaches) geriatric mbzyxyot-vggb-djgy 1 EACH tablet 1 each PO DAILY lamotrigine 100 MG tablet 100 mg PO BID montelukast 10 MG tablet 10 mg PO HS quetiapine 300 mg tablet 300 mg PO HS Patient Comments: TAKE 1 TABLET BY MOUTH ONCE DAILY AT NIGHT donepezil [Aricept] 23 mg tablet 23 mg PO DAILY Patient Comments: TAKE 1 TABLET BY MOUTH ONCE DAILY guaifenesin [Mucinex] 600 mg tablet extended release 12hr 600 - 1,200 mg PO BIDP PRN (Reason: Congestion) Qty: 30 0RF dantrolene 50 mg capsule 100 mg PO QID Patient Comments: TAKE 2 CAPSULES BY MOUTH 4 TIMES DAILY baclofen 10 mg tablet 10 mg PO QID buspirone 5 mg tablet 5 mg PO TID Patient Comments: TAKE 1 TABLET BY MOUTH THREE TIMES DAILY Emgality Pen 120 mg/mL pen injector 120 mg SQ MONTHLY amlodipine 5 mg tablet 5 mg PO DAILY Patient Comments: TAKE 1 TABLET BY MOUTH ONCE DAILY pantoprazole 40 mg tablet,delayed release (DR/EC) 40 mg PO HS Patient Comments: TAKE 1 TABLET BY MOUTH ONCE DAILY ascorbic acid (vitamin C) [Vitamin C] 1,000 mg Tablet 1,000 mg PO DAILY memantine 10 mg tablet 10 mg PO BID albuterol sulfate 90 mcg/actuation Hfa Aerosol Inhaler 2 puff INHALATION Q6H PRN (Reason: Shortness Of Breath) fluticasone furoate-vilanterol [Breo Ellipta] 100-25 mcg/dose blister with device 1 inh INHALATION DAILY Patient Comments: INHALE 1 PUFF ONCE DAILY cefdinir 300 mg capsule 300 mg PO BID 5 Days Qty: 10 0RF Referrals Follow up/Referrals: Marc Rodriguez MD [Primary Care Provider, Internal Medicine] - See instructions Activity Restrictions/Add. Instructions Additional Instructions/Restrictions: Please continue taking the bactrim at home for your urinary tract infection. If she develops fevers, alteration in mental status, abdominal pain, or any other new or worsening symptoms please return to the ER for further evaluation. I want you to call Dr. Rodriguez's office in the morning for a follow up appointment on Thursday of this week. Clinical Impressions Clinical Impression: Urinary tract infection Qualifiers: Urinary tract infection type: site unspecified Hematuria presence: without hematuria Qualified Code(s): N39.0 - Urinary tract infection, site not specified Print Language Print Language: [place] Discharge ED Provider: Quintin Newman General Adult HPI General Chief complaint: PAIN Stated complaint: Doctor Michael sent her,body aches,legs swelling Time Seen by Provider: 05/17/25 16:23 Mode of Arrival: Wheelchair Source of Information: Patient Description of Symptoms (Recalled from ER Triage Doc. by RN): patient states she has a kidney stone that has been there for about a month, she now has nausea, chills, headache, cough, and blood in urine. she reports her legs and feet have been very swollen for about 6 weeks. she has been on lasix. she is currently on bactrium for the blood in urine. History of Present Illness HPI narrative: This is a 69-year-old female patient, with past medical history of hypertension, CKD, and multiple spinal surgeries for which she is nonambulatory baseline, who is presenting to the emergency department today for evaluation of chills. The patient was recently diagnosed with nephrolithiasis and no evidence of ureterolithiasis as well as a urinary tract infection. Her primary care physician ordered a renal ultrasound and referred her to a urologist. This urologist name is Dr. Subhash Aguilar who works through [employer] in [place] but also practices at satellite offices in [facility]. He saw the patient in [facility] and performed urine cultures on her and started her on Bactrim yesterday for her urinary tract infection. She has taken 1 pill of the Bactrim and was set to follow-up with her primary care physician Dr. Hernandez today. In clinic he noticed that she was having chills so he sent her here for further evaluation. The patient states that at home she has not had any fevers and at Dr. Hernandez's office she also had no fevers. She tells me that she has had some intermittent diarrhea over the last couple of days but has not had any nausea. She denies chest pain and shortness of breath. Related Data Home Medications ?Medication ?Instructions ?Recorded ?Confirmed geriatric swgjyomp-hhfw-[id number] 1 each PO DAILY Diet supplement 10/14/19 03/14/25 lamotrigine 100 mg tablet 100 mg PO BID 10/14/19 03/14/25 montelukast 10 mg tablet 10 mg PO HS 10/14/19 03/14/25 duloxetine 60 mg capsule,delayed 60 mg PO BID 09/25/22 03/14/25 release (Cymbalta) hydrocortisone 5 mg tablet 5 mg PO BID 09/25/22 03/14/25 levothyroxine 88 mcg tablet 88 mcg PO DAILY 09/25/22 03/14/25 rosuvastatin 20 mg tablet (Crestor) 20 mg PO HS 09/25/22 03/14/25 ubrogepant 100 mg tablet (Ubrelvy) 100 mg PO DAILYP PRN migraine 09/25/22 03/14/25 headaches donepezil 23 mg tablet (Aricept) 23 mg PO DAILY 03/29/23 03/14/25 quetiapine 300 mg tablet 300 mg PO HS 03/29/23 03/14/25 albuterol sulfate 90 mcg/actuation 2 puff inhalation Q6H PRN 09/27/24 03/14/25 aerosol inhaler Shortness Of Breath amlodipine 5 mg tablet 5 mg PO DAILY 09/27/24 03/14/25 ascorbic acid (vitamin C) 1,000 mg 1,000 mg PO DAILY 09/27/24 03/14/25 tablet (Vitamin C) baclofen 10 mg tablet 10 mg PO QID 09/27/24 03/14/25 buspirone 5 mg tablet 5 mg PO TID 09/27/24 03/14/25 dantrolene 50 mg capsule 100 mg PO QID 09/27/24 03/14/25 fluticasone furoate 100 1 inh inhalation DAILY 09/27/24 03/14/25 mcg-vilanterol 25 mcg/dose inhalation powder (Breo Ellipta) galcanezumab-gnlm 120 mg/mL 120 mg SQ MONTHLY 09/27/24 03/14/25 subcutaneous pen injector (Emgality Pen) memantine 10 mg tablet 10 mg PO BID 09/27/24 03/14/25 pantoprazole 40 mg tablet,delayed 40 mg PO HS 09/27/24 03/14/25 release Previous Rx's ?Medication ?Instructions ?Recorded guaifenesin 600 mg tablet, 600 - 1,200 mg (1 - 2 x 600 mg) PO 02/06/24 extended release 12 hr (Mucinex) BIDP PRN Congestion #30 tabs cefdinir 300 mg capsule 300 mg PO BID 5 days #10 caps 09/29/24 Allergies Allergy/AdvReac Type Severity Reaction Status Date / Time cephalexin Allergy Intermediate BLISTERS Verified 03/14/25 11:39 IN MOUTH AND THROAT clindamycin Allergy Intermediate Blister Verified 03/14/25 11:39 erythromycin base Allergy Intermediate BLISTERS Verified 03/14/25 11:39 IN MOUTH AND THROAT meropenem Allergy Unknown Other Verified 03/14/25 11:39 azithromycin Allergy Rash Verified 03/14/25 11:39 levofloxacin (From Levaquin) Allergy Other Verified 03/14/25 11:39 nirmatrelvir (From Paxlovid) Allergy Other Verified 03/14/25 11:39 ritonavir (From Paxlovid) Allergy Other Verified 03/14/25 11:39 pregabalin (From Lyrica) AdvReac Mild Hallucinati Verified 03/14/25 11:39 ng codeine AdvReac Unknown Other Verified 03/14/25 11:39 [facility] Disclaimer: The information contained in this section may have been updated after the patient was seen, as this information can be updated by other users. Medical History Hot flashes Abscess of vulva Retinal detachment Ileus, unspecified History of back pain History of back pain Surgical History History of lumpectomy History of hip replacement History of right shoulder replacement History of surgery on left wrist History of foot surgery History of cataract surgery History of colectomy History of cholecystectomy History of appendectomy History of hysterectomy History of lumbar surgery Hx of cervical spine surgery Family History Mother Cancer Diabetes Sister Diabetes Social History (Updated 03/14/25 @ 11:37 by Rodrigo Grover RN) Smoking Status: Never smoker second hand exposure: No alcohol intake: never substance use type: denies use current occupational status: retired Travel in the last 8 weeks?: None household members: spouse housing: house education level: high school current occupation: retired from [employer] current occupational exposures/hazards: No caffeine: Yes Have you lived/traveled outside US in past 30 days?: No Contact w/someone who lives/traveled outside US past 30 days?: No Exposure to someone with infectious disease in past 14 days?: No Do you have a fever (greater than 100.4 F or 38 C)?: No Have you tested positive for COVID-19?: No Exposed to someone with COVID-19 in past 14 days?: No Do you have a sore throat?: No Do you have a cough?: No Do you have any weakness?: No Do you have any diarrhea?: No Are you experiencing any unusual bleeding?: No Do you have any muscle aches/pain?: No Do you have any abdominal pain?: No Are you experiencing loss of taste or smell?: No Other Medical History Have you received the Flu Vaccine for this season: No Have you received the Pneumonia Vaccine: No ROS Obtained: Yes Systems reviewed as appropriate & no additional complaints except as documented Physical Exam General General appearance: other (See MDM) Respiratory Respiratory exam: Present other (See MDM) Cardiovascular Cardiovascular exam: Present other (See MDM) Neurological Exam Neurological exam: Present other (See MDM) Medical Decision Making Medical Records Medical records reviewed: Yes I reviewed the patient's medical records. Screening: Per USPSTF and CDC recommendations, given the prevalence of disease in our region, it is our hospital?s policy to screen for HIV and viral Hepatitis for all patients aged 18 and over and those with ongoing risk factors. Romeo Inquiry Pt receiving controlled substance: No Romeo was queried for this patient: No Vital Signs: 05/17/25 16:31 05/17/25 17:01 05/17/25 17:31 Temperature 98.4 F Temperature Source Oral Pulse Rate 82 77 Pulse Rate [Right Radial] 79 Respiratory Rate 15 Blood Pressure 164/99 H 95/72 L Blood Pressure [Right Arm] 164/92 H Blood Pressure Mean 137 79 Blood Pressure Mean [Right Arm] 116 Blood Pressure Source [Right Arm] Automatic Cuff Blood Pressure Position [Right Arm] Supine 02 Sat by Pulse Oximetry 96 95 95 Oxygen Delivery Method Room Air 05/17/25 18:00 Temperature Temperature Source Pulse Rate 78 Pulse Rate [Right Radial] Respiratory Rate Blood Pressure 164/77 H Blood Pressure [Right Arm] Blood Pressure Mean 95 Blood Pressure Mean [Right Arm] Blood Pressure Source [Right Arm] Blood Pressure Position [Right Arm] 02 Sat by Pulse Oximetry 97 Oxygen Delivery Method Lab Data Lab Results 05/17/25 16:28: SARS-CoV-2 (PCR) Not detected, Influenza A Untype (PCR) Not detected, Influenza Type B (PCR) Not detected 05/17/25 16:43: WBC 6.0, RBC 4.02 L, Hgb 13.3, Hct 39.8, MCV 99.0, MCH 33.1 H, MCHC 33.4, RDW 13.7, Plt Count 120 L, MPV 12.0 H, Neut % (Auto) 76.0, Lymph % (Auto) 14.8, Holmes % (Auto) 7.2, Eos % (Auto) 0.3, Baso % (Auto) 0.5, Neut # (Auto) 4.5, Lymph # (Auto) 0.9, Holmes # (Auto) 0.4, Eos # (Auto) 0.0, Baso # (Auto) 0.0, Sodium 138, Potassium 4.2, Chloride 99, Carbon Dioxide 31 H, Anion Gap 12.2, BUN 13, Creatinine 0.70, Estimated Creat Clear 63, Estimated GFR 82, Est GFR ( Amer) 100, Glucose 87, Calcium 8.8, Total Bilirubin 0.8, AST 60 H, ALT 27, Alkaline Phosphatase 127 H, Total Creatine Kinase 33, Troponin I < 0.01, NT-Pro-B Natriuret Pep 627 H, Total Protein 7.5, Albumin 4.0, Globulin 3.5 H, Albumin/Globulin Ratio 1.1, Lipase 90 05/17/25 17:03: Urine Color Yellow, Urine Appearance Sl cloudy, Urine pH 7.0, Ur Specific Currie 1.025, Urine Protein 2+ A, Urine Glucose (UA) Negative, Urine Ketones Negative, Urine Blood 3+ A, Urine Nitrate Negative, Urine Bilirubin Negative, Urine Urobilinogen 1.0, Ur Leukocyte Esterase 1+ A, Urine RBC Tntc, Urine WBC 50-100, Ur Squamous Epith Cells 5-10, Urine Bacteria 3+ 05/17/25 18:20: Troponin I < 0.01 05/17/25 16:43 05/17/25 16:43 Orders (Tests/Meds): ED MEDICATIONS Generic Name Dose Route Start Last Admin Trade Name Freq PRN Reason Stop Dose Admin Ceftriaxone Sodium 2 gm/ 100 mls @ 200 mls/hr 05/17/25 19:00 05/17/25 19:39 Sodium Chloride IV 05/27/25 18:59 Infused Q24H JAMES Infusion Discontinued Medications Generic Name Dose Route Start Last Admin Trade Name Freq PRN Reason Stop Dose Admin Fluconazole 200 mg 05/17/25 18:57 05/17/25 19:06 Fluconazole 200mg Tablet PO 05/17/25 18:58 Not Given ONCE ONE Fluconazole 200 mg 05/17/25 19:06 05/17/25 19:08 Fluconazole 100mg Tablet PO 05/17/25 19:07 200 mg ONCE ONE Administration Iopamidol 80 ml 05/17/25 17:39 05/17/25 17:41 Iopamidol-370 (76%);100ml Bottle IV 05/17/25 17:40 80 ml ONCE ONE Administration Sodium Chloride 10 ml 05/17/25 17:39 05/17/25 17:41 Sodium Chloride 0.9% 10ml Syr (Rad Only) IV 05/17/25 17:40 10 ml ONCE ONE Administration ORDERS Category Date Time Status CT abdomen pelvis w con Stat Cat Scan 05/17/25 16:40 Completed CXR --portable [XR chest portable] Stat Exams 05/17/25 16:40 Completed BNP [NT Pro Brain Natriuretic Pep.] Stat Lab 05/17/25 16:43 Completed CBC w/Auto Diff [Complete Blood Count Auto Diff] Stat Lab 05/17/25 16:43 Completed CK [Creatine Kinase] Stat Lab 05/17/25 16:43 Completed CMP [Comprehensive Metabolic Panel] Stat Lab 05/17/25 16:43 Completed Lipase Stat Lab 05/17/25 16:43 Completed Rapid PCR Covid and Flu A/B Stat Lab 05/17/25 16:28 Completed Troponin I Q3H Lab 05/17/25 18:20 Completed Troponin I Q3H Lab 05/17/25 22:45 Ordered Troponin I Stat Lab 05/17/25 16:43 Completed Urinalysis and Microscopic Stat Lab 05/17/25 17:03 Completed Blood Culture Stat Micro 05/17/25 16:50 Received Urine Culture Stat Micro 05/17/25 17:03 Received CA venous doppler LE RT Stat Y 05/17/25 16:45 Completed ECG Data Tracing #1: I reviewed this ECG and interpreted as documented below: EKG personally turbid by me demonstrates likely paced rhythm at a rate of 77 bpm, normal axis, no MN prolongation, narrow QRS, no QTc prolongation. No ST elevation or depression. Medical Decision Narrative: In summary this is a 69-year-old female patient who is presenting to the emergency department today for evaluation of a documented urinary tract infection for which she has taken 1 dose of Bactrim as well as chills noted at her primary care physician's office today. Dr. Hernandez called ahead to the emergency department and stated that he had concerns about potential urinary obstruction or sepsis given that she was having chills. Patient's comorbidities include hypertension, CKD, and numerous back surgeries for which she is nonambulatory at baseline. On initial evaluation of the patient they were resting comfortably in no acute distress and nontoxic in appearance. They are hemodynamically stable, saturating well room air, and are neurologically intact. She does seem to be having chills in the room. On physical examination she is appropriately alert and interactive with a GCS of 15. Heart and lungs are clear to auscultation bilaterally. The patient does have very mild tenderness in her bilateral lower quadrants with no evidence of peritonitis on exam. She appears well-hydrated. She is afebrile at the time of my evaluation. Differential diagnosis includes ureterolithiasis, pyelonephritis, urinary tract infection, sepsis, bacteremia, among others. Workup was initiated with hematologic labs as well as an EKG and a CT scan of the abdomen and pelvis as well as a urinalysis. Labs were personally interpreted by me and demonstrates a normal white blood cell count of 6, no anemia, no electrolyte derangements or evidence of acute kidney injury. Her troponin is less than 0.01. Her urine shows evidence of urinary tract infection with 1+ leukocyte esterase, 50-100 white blood cells, and 3+ bacteria. CT scan of the abdomen and pelvis was personally interpreted by me and demonstrates no evidence of pneumoperitoneum. Official radiology read is in agreement and states that the patient does have a kidney stone present in the renal pelvis with no evidence of ureterolithiasis. They also see findings consistent with enteritis. In light of these findings I do not feel that the patient's presentation is consistent with sepsis. She has maintained a normal blood pressure, normal heart rate, and normal temperature throughout the duration of her stay here in the emergency department. She also has no evidence of leukocytosis. I did discuss this case directly with her primary care physician Dr. Hernandez who stated that he was reassured by this workup and would feel comfortable with her going home. He has requested that we give her the dose of IV antibiotics here in the emergency department. The patient does have a reaction to cephalexin in which she develops oral thrush with cephalosporins. Therefore we decided to administer 2 g of Rocephin to the patient with 200 mg of fluconazole to prevent oral thrush. Given that she has not taken more than 1 dose of Bactrim at home I do not feel that she necessitates a further change in her antibiotic regimen. I have recommended that she continue taking her Bactrim as scheduled at home and follow-up with both urology as well as her primary care physician. Dr. Hernandze has confirmed that he will relay to his office helper to have the patient be seen in the clinic on Thursday morning. I am instructed the patient to call their clinic in the morning to obtain this appointment. Patient acknowledges understanding. At this time all questions have been answered and all parties are agreeable with the decision to discharge home Critical Care Critical Care Time Critical Care Time: No
[2025-05-17 17:31] VITALS: BP 95/72; PULSE 77; O2SAT 95
--- NOTE | 2025-05-17 17:39 | PC.NURSE ---
Called [facility] per Dr Newman about this pt. Tried to get some medical record information and [facility] said she hadnt been seen since 2019.
[2025-05-17 17:41] LABS: Troponin I < 0.01 ng/ml (0.00-0.034)
[2025-05-17] MEDS: IOPAMIDOL-370 (76%);100ML BOTTLE 80 ML IV (17:41)
[2025-05-17] MEDS: SODIUM CHLORIDE 0.9% 10ML SYR (RAD ONLY) 10 ML IV (17:41)
[2025-05-17 18:00] VITALS: BP 164/77; PULSE 78; O2SAT 97
[2025-05-17 18:07] LABS: RBC,Urine TNTC #/hpf (0-3); WBC,Urine 50-100 #/hpf (0-3)
[2025-05-17 18:08] LABS: Bacteria,Urine 3+ /lpf
[2025-05-17] MEDS: FLUCONAZOLE 100MG TABLET 200 MG PO (19:08)
[2025-05-17 19:23] LABS: Troponin I < 0.01 ng/ml (0.00-0.034)
[2025-05-17 19:48] VITALS: BP 148/79; PULSE 75; RESP 16; TEMP 36.5; O2SAT 99
== END 2025-05-17 20:11 | disposition home or self-care (01) ==
PROVIDERS: Emergency Provider Student in an Organized Health Care Education/Training Program; PCP Internal Medicine Adolescent Medicine
DX: N39.0 Urinary tract infection, site not specified (principal); R11.0 Nausea; R51.9 Headache, unspecified; R31.9 Hematuria, unspecified; R68.83 Chills (without fever)
CPT/HCPCS: 71045; 74177; 80053; 81001; 82550; 83690; 83880; 84484; 85025; 87040; 87086; 87636; 93005; 93971; 96365; 99284; 99285; J0696; Q9967

== ENCOUNTER 2025-06-01 13:00 | Outpatient (RCR) | payer MEDICARE, BC, SELFPAY | END 2025-06-01 23:59 | disposition home or self-care (01) | LOC: OT 13:00 | PROVIDERS: PCP Internal Medicine Adolescent Medicine; Visit Provider Internal Medicine Adolescent Medicine | DX: G60.9 Hereditary and idiopathic neuropathy, unspecified (principal); M47.814 Spondylosis without myelopathy or radiculopathy, thoracic region | CPT/HCPCS: 97110; 97530 ==

== ENCOUNTER 2025-06-01 13:00 | Outpatient (RCR) | payer MEDICARE, BC, SELFPAY ==
--- NOTE | 2025-05-29 15:34 | HMH.RHREAS ---
Rehab Reassessment Rehab OP Re-assessment Start: 05/03/25 13:05 Freq: Status: Active Protocol: Document 05/29/25 13:27 IESHARONIT (Rec: 05/29/25 15:34 IESHARONIT [id number]) E-signed By Amna Arizmendi, PT Oswestry Index Section 1 Pain Intensity The pain is moderate and does not vary much Section 2 Personal Care ( unable to do some washing and dressing without help Washing,Dresing) Section 3 Lifting I can only lift very light weights at most Section 4 Walking I cannot walk at all without increasing pain Section 5 Sitting I can sit in my favorite chair for as long as I like Section 6 Standing I cannot stand more than 10 minutes without increasing pain Section 7 Sleeping Because of my pain, my normal night's sleep is less than 4 hours Section 8 Social Life Pain has restricted my social life and I do not go out often Section 9 Traveling Pain restricts me to short necessary journeys under 30 minutes Section 10 Changing Degreee of My pain seems to be getting better, but improvement is Pain slow Score and Risk Level Oswestry Score 34 Oswestry Risk Level Severe Disability Rehab Re-assessment Subjective Subjective Pt reports she has not felt well over the past month dealing with multiple medical conditions including redness/swelling of BLE with negative doppler studies, UTI and left kidney stone, and abdominal pain that she went to the ED for on 05/17/25 without significant findings. Pt reports low back pain has recently worsened to a constant 7/10 and 9/10 at worst on VAS. Pt reports she is unable to lay flat due to discomfort of her pain pump and is not sleeping well due to pain. Pt reports she saw her neurologist who she sees for frontal lobe dementia last week and was referred to another neurologist with her appointment on 06/06/25. Pt reports continued altered seated and standing balance along with dry eyes, dry mouth and double vision which she states she mentioned to the neurologist. Pt reports she is scheduled to see an signalman tomorrow. Pt reports she has been ambulating a little further at home with use of her rolling walker and assistance from her ~60 feet with good tolerance. Pt states she did fall forward out of her recliner last week due to leaning forward to scratch her leg and losing her balance, pt denies injuries from the fall. Pt reports she has been compliant with her HEP and exercising daily. Pt reports her legs have felt weaker over the past few days. Objective Objective Notes Observation: altered postural control and seated dynamic balance with proximal weakness and altered sensation distally Balance/Postural control: pt loses balance forward when looking down, backwards when looking up, and laterally when looking side to side reflected in making turns when ambulating Standing tolerance: able to stand 10' with BUE support with minimal sway, moderate sway noted without BUE support requiring CGA-[id number] to correct and intermittent knee buckling noted. Transfers: CGA to perform sit to stand and stand step transfers with use of BUE, unable to perform sit to stand transfer with 1 arm or without UE support Ambulation: 250ft with CGA-minAx1 with RW BLE MMT: 4-/5 grossly, end range weakness noted with MMT with fatigue noted and muscle giving way 5x sit to stand: 26 with BUE support LE reflexes: diminished Assessment Progress Assessment Slower Than Expected Assessment Notes Pt has attended PT/OT co-treatment sessions consisting of aerobic exercise, LE/core strengthening, transfers, balance/proprioception and gait training with fair-good tolerance. Pt demonstrated slight improvement in VICTORINA this date although voices worsening low back pain with difficulty sleeping and demonstrated regression in 5x sit to stand outcome measure this date. Pt has been dealing with multiple medical conditions limiting PT tolerance and likely impairing progress at this time. Pt continues to demonstrate LE weakness and altered balance impairing functional mobility. Pt is scheduled to see a neurologist on 06/06 and was encouraged to contact PCP or pain management regarding worsening low back pain. Overall, the pt would continue to benefit from skilled PT to assist with subject report of pain, LE/core/trunk strength, postural control, balance/ proprioception, transfers, gait and functional activity tolerance to decrease fall risk, decrease burden of care and improve overall QOL. PT Patient Goals PT Prison Patient 8 weeks: 08/07 Goals 1. BLE MMT to 4/5 grossly to assist with function/gait -NOT MET 2. Perform sit to stand from standard chair I -NOT MET 3. Ambulate 50-100ft I with LRD and proper mechanics to decrease fall risk -NOT MET 4. Improve score to moderate-severe disability category to improve overall QOL - MET 5. Improve pain at worst to 4-6/10 to improve overall QOL -NOT MET Plan Plan Continue initial PT POC. Treat and await recommendations from neurologist with appointment scheduled on 06/06/25. Pt also recommended to contact PCP or pain management regarding worsening low back pain. Frequency of Therapy 2x/week Duration of Therapy 4 more weeks Therapeutic Exercise Yes Including Home Exercise Program Manual Therapy Yes Techniques Neuromuscular Re- Yes education Therapeutic Yes Activities to Return to Previous Functional/Work Level ADL/Self Care Yes Education Thermal Modalities Yes Electrical Yes Stimulation Ultrasound/ Yes Phonophoresis Iontophoresis Yes Massage Yes Group Therapy for Yes Medicare Eval/Re-Eval Yes Time and Billing Re-Eval Time 11 Re-Eval Billing 0 Units Charge for PT No reassessment? Charge for OT No reassessment? PHYSICIAN CERTIFICATION: I certify the specified therapy services for Sandie Frank are required, authorized, and reviewed every 30 days.
== END 2025-06-01 23:59 | disposition home or self-care (01) ==
LOC: PT 13:00
PROVIDERS: PCP Internal Medicine Adolescent Medicine; Visit Provider Internal Medicine Adolescent Medicine
DX: G60.9 Hereditary and idiopathic neuropathy, unspecified (principal); M47.814 Spondylosis without myelopathy or radiculopathy, thoracic region
CPT/HCPCS: 97110; 97112; 97116; 97140

== ENCOUNTER 2025-06-05 12:55 | Outpatient (RCR) | payer MEDICARE, BC, SELFPAY | END 2025-06-05 23:59 | disposition home or self-care (01) | LOC: PT 12:55 | PROVIDERS: PCP Internal Medicine Adolescent Medicine; Visit Provider Internal Medicine Adolescent Medicine | DX: G60.9 Hereditary and idiopathic neuropathy, unspecified (principal); M47.814 Spondylosis without myelopathy or radiculopathy, thoracic region | CPT/HCPCS: 97116; 97530 ==

== ENCOUNTER 2025-06-15 08:25 | Outpatient (CLI) | payer MEDICARE, BC, SELFPAY ==
--- OUTSIDE RECORDS SUMMARY | 2017-12-24 09:37 | XMS_ITS | Encounter Summary ---
Author Organization [facility] Address [address] [place] [address] Care Team Providers Care Installer Molding And Trim Name Role Phone Marc Rodriguez MD Primary Care Provider [phone] Encounter Details Date Type Department Care Team (Late st Contact Info) Description 12/24/2017 10:37 AM EDT Hospital Encounter [facility] PULMONARY & CRITICAL CARE MEDICINE [address] [place] [phone] Social History Tobacco Use Types Packs/Day Years [...] Encounters Date Type Department Care Team (Late st Contact Info) Description 06/19/2025 11:45 AM EST Office Visit [facility] CARDIOLOGY [address] [facility] [address] [place] [phone] Jimmy Duncan MD [address] [facility] [address] [place] [address] 06/26/2025 9:30 AM EST Procedure visit [facility] PULMONARY & CRITICAL CARE MEDICINE [address] [place] [address] 06/26/2025 10:00 AM EST Office Visit [facility] PULMONARY & CRITICAL CARE MEDICINE [address] [place] [address] Kaitlin Joiner, PLUMBING MECHANIC [address] [place] [address] documented as of this encounter Procedures Procedure [...] documented as of this encounter Care Teams Installer Molding And Trim Relationship Specialty Start Date End Date Marc Rodriguez MD [address] [facility] [address] [place] [address] PCP - General Adolescent Medicine 12/08/16 documented as of this encounter
--- OUTSIDE RECORDS SUMMARY | 2018-08-16 10:42 | XMS_ITS | Encounter Summary ---
[facility] [address] [place] [address] Care Team Providers Care Cable Systems Installer Name Role Phone Marc Rodriguez MD Primary Care Provider [phone] Encounter Details Date Type Department Care Team (Late st Contact Info) Description 08/16/2018 10:42 AM EST Hospital Encounter [facility] PULMONARY & CRITICAL CARE MEDICINE [address] [place] [phone] Social History Tobacco Use Types Packs/Day Years [...] Description 06/19/2025 11:45 AM EST Office Visit [facility] CARDIOLOGY [address] [facility] [address], [place] [id number] Jimmy Duncan MD [address] [facility] [address], [place] [address] 06/26/2025 9:30 AM EST Procedure visit [facility] PULMONARY & CRITICAL CARE MEDICINE [address] [place] [address] 06/26/2025 10:00 AM EST Office Visit [facility] PULMONARY & CRITICAL CARE MEDICINE [address] [place] [address] Kaitlin Joiner, GARAGE HELPER [address] [place] [address] documented as of this encounter Procedures Procedure Name Priority Date/Time Associated Diagnosis Comments XR CHEST PA AND LATERAL Routine 08/16/2018 10:54 AM EST Cough documented in this encounter Results * XR Chest PA & Lateral (08/16/2018 10:54 AM EST) Anatomical Region Laterality Modality Body, Chest N/A [...] documented as of this encounter Care Teams Cable Systems Installer Relationship Specialty Start Date End Date Marc Rodriguez MD [address] [place] [id number] PCP - General Adolescent Medicine 12/08/16 documented as of this encounter
--- OUTSIDE RECORDS SUMMARY | 2020-11-12 07:42 | XMS_ITS | Encounter Summary ---
[facility] Address [address] [place] [address] Care Team Providers Care Field Services Director Name Role Phone Marc Rodriguez MD Primary Care Provider [phone] Encounter Details Date Type Department Care Team (Late st Contact Info) Description 11/12/2020 8:42 AM EDT Hospital Encounter [facility] PULMONARY & CRITICAL CARE MEDICINE [address] [place] [phone] Social History Tobacco Use Types Packs/Day Years [...] Description 06/19/2025 11:45 AM EST Office Visit [facility] CARDIOLOGY [address] [facility] [address], [place] [phone] Jimmy Duncan MD [address] [facility] [address] [place] [address] 06/26/2025 9:30 AM EST Procedure visit [facility] PULMONARY & CRITICAL CARE MEDICINE [address] [place] [address] 06/26/2025 10:00 AM EST Office Visit [facility] PULMONARY & CRITICAL CARE MEDICINE [address] [place] [address] Kaitlin Joiner, DIE REAMER [address] [place] [address] documented as of this encounter Procedures Procedure [...] documented as of this encounter Care Teams Field Services Director Relationship Specialty Start Date End Date Marc Rodriguez MD [facility] [address] [phone] PCP - General Adolescent Medicine 12/08/16 documented as of this encounter
--- OUTSIDE RECORDS SUMMARY | 2022-07-11 13:36 | XMS_ITS | Encounter Summary ---
[facility] Organization [facility] Address [address] [place] [address] Care Team Providers Care Asset Protection Representative Name Role Phone Marc Rodriguez MD Primary Care Provider [phone] Encounter Details Date Type Department Care Team (Late Contact Info) Description 07/11/2022 1:36 PM EST Hospital Encounter [facility] PULMONARY & CRITICAL CARE MED[facility] [place] [address] Social History Tobacco Use Types Packs/Day Years [...] Description 06/19/2025 11:45 AM EST Office Visit [facility] CARDIOLOGY [address] [facility] [address], [place] [address] Jimmy Duncan MD 3000 [facility] [address] [place] [address] 06/26/2025 9:30 AM EST Procedure visit [facility] PULMONARY & CRITICAL CARE MEDICINE [address] [place] [address] 06/26/2025 10:00 AM EST Office Visit [facility] PULMONARY & CRITICAL CARE MEDICINE [address] [place] [address] Rhys Kaitlin Cat, WHITE KID BUFFER [address] [place] [address] documented as of this encounter Procedures Procedure Name Priority Date/Time Associated Diagnosis Comments XR CHEST PA AND LATERAL Routine 07/11/2022 1:36 PM EST Shortness of breath documented in this encounter Results * XR Chest PA & Lateral (07/11/2022 1:36 PM EST) Anatomical Region Laterality Modality Body, Chest N/A Radiographic Jami ging 07/11/2022 5:48 PM EST Impressions 07/11/2022 5:50 PM EST Stable chest without acute cardiopulmonary findings. This report was finalized on 07/11/2022 5:50 PM by Edgardo Cash MD. Narrative 07/11/2022 5:50 PM EST DATE OF EXAM: 07/11/2022 1:36 PM PROCEDURE: XR CHEST PA AND LATERAL- INDICATIONS: SEE DIAGNOSIS; R06.02-Shortness of breath. COMPARISON: Chest x-ray 11/12/2020 TECHNIQUE: Frontal and lateral views of the chest. FINDINGS: Stable diffuse interstitial prominence compatible with chronic/senescent interstitial change. Minimal streaky opacities of the right lateral lung base likely reflect atelectasis or scarring. No focal consolidation. No pleural effusion or pneumothorax. No acute osseous findings. Procedure Note Edgardo Cash MD - 07/11/2022 DATE OF EXAM: 07/11/2022 1:36 PM PROCEDURE: XR CHEST PA AND LATERAL- INDICATIONS: SEE DIAGNOSIS; R06.02-Shortness of breath. COMPARISON: Chest x-ray 11/12/2020 TECHNIQUE: Frontal and lateral views of the chest. FINDINGS: Stable diffuse interstitial prominence compatible with chronic/senescent interstitial change. Minimal streaky opacities of the right lateral lung base likely reflect atelectasis or scarring. No focal consolidation. No pleural effusion or pneumothorax. No acute osseous findings. IMPRESSION: Stable chest without acute cardiopulmonary findings. This report was finalized on 07/11/2022 5:50 PM by Edgardo Cash MD. Kaitlin L Rhys WHITE KID BUFFER IMG DIAGNOSTIC IMAGING ORDER JORDANA Final Result documented in this encounter Visit Diagnoses Not on filedocumented in this encounter Care Teams Asset Protection Representative Relationship Specialty Start Date End Date Marc Rodriguez MD [facility] [address] [place] [address] PCP - General Adolescent Medicine 12/08/16 documented as of this encounter
--- OUTSIDE RECORDS SUMMARY | 2022-08-27 08:46 | XMS_ITS | Encounter Summary ---
[facility] Address [address] [place] [address] Care Team Providers Care Volunteer Patient Representative Name Role Phone Marc Rodriguez MD Primary Care Provider [phone] Encounter Details Date Type Department Care Team (Late Contact Info) Description 08/27/2022 8:46 AM EST Hospital Encounter [facility] PULMONARY & CRITICAL CARE MEDICINE [facility] [place] [address] Social History Tobacco Use Types Packs/Day Years [...] Description 06/19/2025 11:45 AM EST Office Visit [facility] CARDIOLOGY [address] [facility] [address], [place] [address] Jimmy Duncan MD [address] [facility] [address] [place] [address] 06/26/2025 9:30 AM EST Procedure visit [facility] PULMONARY & CRITICAL CARE MEDICINE [address] [place] [address] 06/26/2025 10:00 AM EST Office Visit [facility] PULMONARY & CRITICAL CARE MEDICINE [address] [place] [address] Rhys Kaitlin Cat, FACULTY CRIMINAL JUSTICE [address] [place] [address] documented as of this encounter Procedures Procedure Name Priority Date/Time Associated Diagnosis Comments XR CHEST PA AND LATERAL Routine 08/27/2022 8:50 AM EST Moderate persistent asthma, unspecified whether complicated documented in this encounter Results * XR Chest PA & Lateral (08/27/2022 8:50 AM EST) Anatomical Region Laterality Modality Body, Chest N/A Radiographic Jami ging 08/27/2022 1:29 PM EST Impressions 08/27/2022 1:30 PM EST Impression: No acute cardiopulmonary process. Electronically Signed: Marian Coleman 08/27/2022 1:30 PM EST Workstation ID: [id number] Narrative 08/27/2022 1:30 PM EST XR CHEST PA AND LATERAL Date of Exam: 08/27/2022 8:50 AM EST Indication: Shortness of air. Comparison: Radiograph 07/11/2022 Findings: There are no airspace consolidations. No pleural fluid. No pneumothorax. The pulmonary vasculature appears within normal limits. The heart appears borderline enlarged, similar as compared to the previous study. Stable postsurgical changes within the right shoulder.. No acute osseous abnormality identified. Procedure Note Marian Coleman MD - 08/27/2022 XR CHEST PA AND LATERAL Date of Exam: 08/27/2022 8:50 AM EST Indication: Shortness of air. Comparison: Radiograph 07/11/2022 Findings: There are no airspace consolidations. No pleural fluid. No pneumothorax.The pulmonary vasculature appears within normal limits. The heart appearsborderline enlarged, similar as compared to the previous study. Stablepostsurgical changes within the right shoulder.. No acute osseous abnormality identified. IMPRESSION: Impression: No acute cardiopulmonary process. Electronically Signed: Marian Laogan 08/27/2022 1:30 PM EST Workstation ID: [id number] Kaitlin Joiner APRN IMG DIAGNOSTIC IMAGING ORDER JORDANA Final Result documented in this encounter Visit Diagnoses Not on filedocumented in this encounter Care Teams Volunteer Patient Representative Relationship Specialty Start Date End Date Marc Rodriguez MD [facility] [address] [facility] [place] [address] PCP - General Adolescent Medicine 12/08/16 documented as of this encounter
--- OUTSIDE RECORDS SUMMARY | 2024-12-30 08:04 | XMS_ITS | Encounter Summary ---
[facility] Organization [facility] Address [address] [place] [address] Care Team Providers Care Freezer Tunnel Operator Name Role Phone Marc Rodriguez MD Primary Care Provider [phone] Encounter Details Date Type Department Care Team (Late st Contact Info) Description 12/30/2024 9:04 AM EDT Hospital Encounter [facility] PULMONARY & CRITICAL CARE MEDICINE [address] [place] [phone] Social History Tobacco Use Types Packs/Day Years [...] AM EST Office Visit [facility] CARDIOLOGY [address] [facility] [address], [place] [phone] Jimmy Duncan MD 3000 [facility] [address] [place] [address] 06/26/2025 9:30 AM EST Procedure visit [facility] PULMONARY & CRITICAL CARE MEDICINE [address] [place] [address] 06/26/2025 10:00 AM EST Office Visit [facility] PULMONARY & CRITICAL CARE MEDICINE [address] [place] [address] Kaitlin Joiner APRN [address] [place] [address] documented as of this encounter Procedures Procedure Name Priority Date/Time Associated Diagnosis Comments XR CHEST AP Routine 12/30/2024 9:14 AM EDT Severe persistent asthma without complication documented in this encounter Results * XR Chest AP (12/30/2024 9:14 AM EDT) Anatomical Region Laterality Modality Body, Chest N/A Radiographic Jami ging 12/30/2024 9:25 AM EDT Impressions 12/30/2024 9:27 AM EDT Impression: No acute cardiopulmonary abnormality. Electronically Signed: Angeline Cooper MD 12/30/2024 9:27 AM EDT Workstation ID: [id number] Narrative 12/30/2024 9:27 AM EDT XR CHEST AP Date of Exam: 12/30/2024 9:14 AM EDT Indication: ASTHMA Comparison: Two-view chest x-ray 08/27/2022 Findings: Lungs are adequately expanded and clear. Cardiomediastinal contours are stable. Procedure Note Angeline Cooper MD - 12/30/2024 XR CHEST AP Date of Exam: 12/30/2024 9:14 AM EDT Indication: ASTHMA Comparison: Two-view chest x-ray 08/27/2022 Findings: Lungs are adequately expanded and clear. Cardiomediastinal contours arestable. IMPRESSION: Impression: No acute cardiopulmonary abnormality. Electronically Signed: Angeline Cooper MD 12/30/2024 9:27 AM EDT Workstation ID: [id number] Kaitlin Joiner APRN IMG DIAGNOSTIC IMAGING ORDER JORDANA Final Result documented in this encounter Visit Diagnoses Not on filedocumented in this encounter Care Teams Freezer Tunnel Operator Relationship Specialty Start Date End Date Marc Rodriguez MD [address] [facility] [address] [facility] [address] PCP - General Adolescent Medicine 12/08/16 documented as of this encounter
--- OUTSIDE RECORDS SUMMARY | 2025-05-25 13:10 | XMS_ITS | Encounter Summary ---
Author Organization Healthcare Address [address] [place] [address] Care Team Providers Care Systems Analysis Manager Name Role Phone Marc Rodriguez MD Primary Care Provider [phone] Edgardo Zuñiga MD Unavailable [phone] Giulia Briggs Unavailable [phone] Edgardo Zuñiga MD Unavailable [phone] Esther Mathew Unavailable [phone] Reason for Referral * Consultation (Routine) - Closed Specialty Diagnoses / Procedures Referred By Robetro conrad Referred To Contact Neurology Diagnoses Weakness Esther Mathew PA [address] [address] Phone: tel: fax: Referral ID Status Reason Start Date Expiration Date V isits Requested Visits Authorized [id number] Closed Specialty Services Required 05/25/2025 11/24/2026 1 1 Scheduling Instructions Neuromuscular * Imaging (Routine) - Pending Review Specialty Diagnoses / Procedures Referred By Roberto conrad Referred To Contact Radiology Diagnoses Weakness Procedures MR Head wo IV Contrast Esther Mathew PA [id number] [place] [address] Phone: tel: fax: Referral ID Status Reason Start Date Expiration Date V isits Requested Visits Authorized [id number] Pending Review 05/25/2025 11/24/2026 1 1 Encounter Details Date Type Department Care Team (Late st Contact Info) Description 05/25/2025 2:10 PM EDT Office Visit [place] [facility] [address] [place] [address] Esther Mathew PA [address] [place] [address] Weakness (Primary Dx) Social History [...] Visit Physical Medicine & Rehabilitation Clinic at [facility] [address] [place] [address] Suzan Galindo DO [address] [place] [address] 03/07/2026 9:20 AM EDT Office Visit [facility] Orthopaedic Surgery & Sports Medicine [address] [place] [address] Edgardo Zuñiga MD [address] [place] [address] Scheduled Orders Name Type Priority [...] as of this encounter Care Teams Systems Analysis Manager Relationship Specialty Start Date End Date Marc Rodriguez MD [address] [place] [address] PCP - General 12/14/20 Edgardo Zuñiga MD [address] [place] [address] Surgeon Neurosurgery 03/04/21 Giulia Briggs PA [address] [place] [address] Physician Rustic Terrazzo Setter Neurosurgery 07/03/21 Edgardo Zuñiga MD [address] [place] [address] Surgeon Neurosurgery 09/16/21 Esther Mathew PA [address] [place] [address] Physician Rustic Terrazzo Setter Neurology 11/19/22 documented as of this encounter
--- OUTSIDE RECORDS SUMMARY | 2025-06-12 13:00 | XMS_ITS | Encounter Summary ---
Author Organization Healthcare Address [address] [place] [address] Care Team Providers Care Slurry Blender Name Role Phone Marc Rodriguez MD Primary Care Provider [phone] Edgardo Zuñiga MD Unavailable [phone] Giulia Briggs Unavailable [phone] Edgardo Zuñiga MD Unavailable [phone] Esther Mathew Unavailable [phone] Reason for Referral * Other Medical (Routine) - Pending Review Specialty Diagnoses / Procedures Referred By Roberto conrad Referred To Contact Neurology Diagnoses Sensory neuropathy Meralgia paresthetica of right side Procedures EMG / Nerve Conduction Study Mook Martinez MD [id number] [place] [address] Phone: tel: fax: Referral ID Status Reason Start Date Expiration Date Visits Requested Visits Authorized [id number] Pending Review Specialty Services Required 12/12/2026 1 1 Reason for Visit * Consultation (Routine) - Closed Specialty Diagnoses / Procedures Referred By Roberto conrad Referred To Contact Neurology Diagnoses Weakness Esther Mathew PA [id number] [place] [address] Phone: tel: fax: Referral ID Status Reason Start Date Expiration Date V isits Requested Visits Authorized [id number] Closed Specialty Services Required 05/25/2025 11/24/2026 1 1 Encounter Details Date Type Department Care Team (Late st Contact Info) Description 06/12/2025 1:00 PM EST Office Visit [place] [facility] [address] [place] [address] Mook Martinez MD [address] [place] [address] Sensory neuropathy (Primary Dx); Meralgia [...] encounter Miscellaneous Notes * Progress Notes - Mook Martinez MD - 06/12/2025 1:00 PM EST 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 He was seen [...] Visit Physical Medicine & Rehabilitation Clinic at [facility] [address] [place] [place] [address] Suzan Galindo DO [address] [place] [address] 03/07/2026 9:20 AM EDT Office Visit [facility] [address] [place] [address] Edgardo Zuñiga MD [id number] [place] [address] Scheduled Orders Name Type Priority Associated Diagnoses Orde r Schedule EMG / Nerve Conduction Study Neurology Routine Sensory neuropathy Meralgia paresthetica of right side Expected: 06/12/2025 (Approximate), Expires: 06/12/2026 documented as of this encounter Visit Diagnoses Diagnosis Sensory neuropathy- [...] documented as of this encounter Care Teams Slurry Blender Relationship Specialty Start Date End Date Marc Rodriguez MD [address] [place] [address] PCP - General 12/14/20 Edgardo Zuñiga MD [address] [place] [address] Surgeon Neurosurgery 03/04/21 Giulia Briggs PA [address] [place] [address] Physician Cut Off Machine Helper Neurosurgery 07/03/21 Edgardo Zuñiga MD [address] [place] [address] Surgeon Neurosurgery 09/16/21 Esther Mathew PA [address] [place] [address] Physician Cut Off Machine Helper Neurology 11/19/22 documented as of this encounter
--- OUTSIDE RECORDS SUMMARY | 2025-06-15 08:30 | XMS_ITS | Encounter Summary ---
Author Organization Healthcare Address [address] [place] [address] Care Team Providers Care Silk Folder Name Role Phone Marc Rodriguez MD Primary Care Provider [phone] Edgardo Zuñiga MD Unavailable [phone] Giulia Briggs Unavailable [phone] Edgardo Zuñiga MD Unavailable [phone] Esther Mathew Unavailable [phone] Encounter Details Date Type Department Care Team (Late st Contact Info) Description 03/10/2025 Results Follow-Up Physical Medicine [facility] Rehabilitation [facility] at [facility] [address] [place] [address] Suzan Galindo DO [address] [facility] [address] [place] [address] Social History Tobacco Use Types [...] the past 12 months has th e [employer], gas, oil, or water [employer] threatened to shut off services in your [...] [place] [facility] [address] [place] [address] Suzan Galindo DO [address] [place] [address] 03/07/2026 9:20 AM EDT Office Visit [facility] [address] [place] [address] Edgardo Zuñiga MD [address] [place] [address] documented as of this encounter [...] documented as of this encounter Care Teams Silk Folder Relationship Specialty Start Date End Date Marc Rodriguez MD [address] [place], [place] [id number] PCP - General 12/14/20 Edgardo Zuñiga MD [address] [place] [address] Surgeon Neurosurgery 03/04/21 Giulia Briggs PA [address] [place] [address] Physician Professor Of Physics Neurosurgery 07/03/21 Edgardo Zuñiga MD [address] [place] [address] Surgeon Neurosurgery 09/16/21 Esther Mathew PA [address] [place] [address] Physician Professor Of Physics Neurology 11/19/22 documented as of this encounter
--- OUTSIDE RECORDS SUMMARY | 2025-06-15 08:30 | XMS_ITS | Encounter Summary ---
[facility] Address [address] [place] [address] Care Team Providers Care Radio Repairer Name Role Phone Marc Rodriguez MD Primary Care Provider [phone] Encounter Details Date Type Department Care Team (Late st Contact Info) Description 07/15/2019 External CPT II SEATER ASSEMBLER - [facility] Social History Tobacco [...] Department Care Team (Late Contact Info) Description 06/19/2025 11:45 AM EST Office Visit [facility] [address] [facility] [address], [place] [address] Jimmy Duncan MD [address] [facility] [address] [place] [address] 06/26/2025 9:30 AM EST Procedure visit [facility] PUL[facility] MEDICINE [address] [place] [address] 06/26/2025 10:00 AM EST Office Visit [facility] [address] [place] [address] Kaitlin Joiner APRN [address] [place] [address] documented as of this encounter Visit Diagnoses [...] documented as of this encounter Care Teams Radio Repairer Relationship Specialty Start Date End Date Marc Rodriguez MD [address] [facility] [address] [place] [facility] [place] [address] PCP - General Adolescent Medicine 12/08/16 documented as of this encounter
--- OUTSIDE RECORDS SUMMARY | 2025-06-15 08:30 | XMS_ITS | Encounter Summary ---
Author Organization [facility] Address [address] [place] [address] Care Team Providers Care Plastic Technician Name Role Phone Marc Rodriguez MD Primary Care Provider [phone] Encounter Details Date Type Department Care Team (Late st Contact Info) Description 06/23/2019 External CPT II CLINIC SPECIALIST - [facility] Social History Tobacco [...] Visit [facility] C[facility]IOLOGY [address] [facility] [address], [place] [address] Jimmy Duncan MD [address] [facility] [address] [place] [address] 06/26/2025 9:30 AM EST Procedure visit [facility] PULMONARY & CRITICAL CARE MEDICINE [address] [place] [address] 06/26/2025 10:00 AM EST Office Visit [facility] PULMONARY & CRITICAL CARE MEDICINE [address] [place] [address] Kaitlin Joiner APRN [address] [place] [address] documented as of this encounter Visit Diagnoses [...] documented as of this encounter Care Teams Plastic Technician Relationship Specialty Start Date End Date Marc Rodriguez MD [address] [facility] [address] [facility] [facility] [place] [address] PCP - General Adolescent Medicine 12/08/16 documented as of this encounter
--- OUTSIDE RECORDS SUMMARY | 2025-06-15 08:30 | XMS_ITS | Encounter Summary ---
Author Organization Healthcare Address [address] [place] [address] Care Team Providers Care Mud Boss Name Role Phone aMrc Rodriguez MD Primary Care Provider [phone] Edgardo Zuñiga MD Unavailable [phone] Giulia Briggs Unavailable [phone] Edgardo Zuñiga MD Unavailable [phone] Esther Mathew Unavailable [phone] Reason for Visit * Reason Onset Date Comments HCN Clinical Concern/Question 04/07/2025 Encounter Details Date Type Department Care Team (Late st Contact Info) Description 04/07/2025 Telephone Physical Medicine & Rehabilitation Clinic at [facility] [address] [place] [address] Suzan Galindo DO [address] [facility] [address] [place] [address] HCN Clinical Concern/Question Social History [...] received her lab results Best contact number: [phone] (mobile) Optimal time of day to reach caller: ANYTIME Additional comments/information from caller: None Note: Please do not reply to this message. Follow-up communication and further actions as a result of this message need to be communicated with the patient directly, if the patient is not active onMyChart. If the patient is active on MyChart, they will receive notification of the communication/outcome via [employer] documented in this encounter Plan of Treatment Upcoming Encounters Date Type Department Care Team (Late st Contact Info) Description 09/11/2025 11:50 AM EST Office Visit [facility] at [facility] [address] [place] [address] Suzan Galindo DO [address] [facility] [address] [place] [address] 03/07/2026 9:20 AM EDT Office Visit [place] [facility] [address] [place] [address] Edgardo Zuñiga MD [address] [place] [address] documented as of this encounter [...] documented as of this encounter Care Teams Mud Boss Relationship Specialty Start Date End Date Marc Rodriguez MD [address] [place] [address] PCP - General 12/14/20 Edgardo Zuñiga MD [address] [place] [address] Surgeon Neurosurgery 03/04/21 Giulia Briggs PA [address] [place] [address] Physician Exhibitions Curator Neurosurgery 07/03/21 Edgardo Zuñiga MD [address] [place] [address] Surgeon Neurosurgery 09/16/21 Esther Mathew PA [address] [place] [address] Physician Exhibitions Curator Neurology 11/19/22 documented as of this encounter
--- OUTSIDE RECORDS SUMMARY | 2025-06-15 08:30 | XMS_ITS | Encounter Summary ---
[facility] Address [address] [place] [address] Care Team Providers Care Chair Inspector Name Role Phone Marc Rodriguez MD Primary Care Provider [phone] Encounter Details Date Type Department Care Team (Late st Contact Info) Description 05/17/2019 External CPT II PRODUCT SAFETY TESTER - [facility] Social History Tobacco [...] Description 06/19/2025 11:45 AM EST Office Visit [facility] CARDIOLOGY [address] [facility] [address], [place] [address] Jimmy Duncan MD 3000 [facility] [address] [place] [address] 06/26/2025 9:30 AM EST Procedure visit [facility] PULMONARY & CRITICAL CARE MEDICINE [address] [place] [address] 06/26/2025 10:00 AM EST Office Visit [facility] PULMONARY & CRITICAL CARE MEDICINE [address] [place] [address] Kaitlin Joiner APRN [address] [place] [address] documented as of this encounter Visit Diagnoses [...] documented as of this encounter Care Teams Chair Inspector Relationship Specialty Start Date End Date Marc Rodriguez MD [address] [facility] [address] [place] [address] PCP - General Adolescent Medicine 12/08/16 documented as of this encounter
--- OUTSIDE RECORDS SUMMARY | 2025-06-15 08:30 | XMS_ITS | Encounter Summary ---
Author Organization Healthcare Address [address] [place] [address] Care Team Providers Care Veneer Jointer Offbearer Name Role Phone Marc Rodriguez MD Primary Care Provider [phone] Edgardo Zuñiga MD Unavailable [phone] Giulia Briggs Unavailable [phone] Edgardo Zuñiga MD Unavailable [phone] Esther Mathew Unavailable [phone] Reason for Visit * Reason Onset Date Comments Med Refill 03/10/2025 Encounter Details Date Type Department Care Team (Late st Contact Info) Description 03/10/2025 Refill [facility] at [facility] [address] [place] [address] Suzan Galindo DO [address] [facility] [address] [place] [address] Social History Tobacco Use Types [...] & Rehabilitation Clinic at [facility] [address] [place] [address] Ryan LauraSuzan mattDO [address] [place] [address] 03/07/2026 9:20 AM EDT Office [facility] [address] 1[address] [place] [address] Edgardo Zuñiga MD [address] [place] [address] documented as of this encounter [...] documented as of this encounter Care Teams Veneer Jointer Offbearer Relationship Specialty Start Date End Date Marc Rodriguez MD [address] [place] [address] PCP - General 12/14/20 Edgardo Zuñiga MD [address] [place] [address] Surgeon Neurosurgery 03/04/21 Giulia Briggs PA [address] [place] [address] Physician Litigation Examiner Neurosurgery 07/03/21 Edgardo Zuñiga MD [address] [place] [address] Surgeon Neurosurgery 09/16/21 Esther Mathew PA [address] [place] [address] Physician Litigation Examiner Neurology 11/19/22 documented as of this encounter
--- OUTSIDE RECORDS SUMMARY | 2025-06-15 08:30 | XMS_ITS | Encounter Summary ---
[facility] Address [address] [place] [address] Care Team Providers Care Launchman Name Role Phone Marc Rodriguez MD Primary Care Provider [phone] Encounter Details Date Type Department Care Team (Late st Contact Info) Description 12/14/2018 External CPT II PANTRY STEWARD/STEWARDESS - [facility] Social History Tobacco Use [...] Description 06/19/2025 11:45 AM EST Office Visit [facility] CARD[facility] [address] [facility] [address] [address] Jimmy Duncan MD 3000 [facility] [address] [place] [address] 06/26/2025 9:30 AM EST Procedure visit [facility] PULMON[facility]ICAL CARE MEDICINE [address] [place] [address] 06/26/2025 10:00 AM EST Office Visit [facility] PULMON[facility]ICAL CARE MEDICINE [address] [place] [address] Kaitlin Joiner APRN [address] [place] [address] documented as of this encounter Visit Diagnoses [...] documented as of this encounter Care Teams Launchman Relationship Specialty Start Date End Date Marc Rodriguez MD [address] [facility] [address] [facility] [place] [address] PCP - General Adolescent Medicine 12/08/16 documented as of this encounter
--- OUTSIDE RECORDS SUMMARY | 2025-06-15 08:30 | XMS_ITS | Encounter Summary ---
[facility] Address [address] [place] [address] Care Team Providers Care Psychiatric Assistant Name Role Phone Marc Rodriguez MD Primary Care Provider [phone] Encounter Details Date Type Department Care Team (Late st Contact Info) Description 11/26/2018 External CPT II DYNO TECHNICIAN - [facility] Social History Tobacco [...] Description 06/19/2025 11:45 AM EST Office Visit [facility] CARDIOLOGY [address] [facility] [address], [place] [address] Jimmy Duncan MD 3000 [facility] [address] [place] [address] 06/26/2025 9:30 AM EST Procedure visit [facility] PULMONARY & CRITICAL CARE MEDICINE [address] [place] [address] 06/26/2025 10:00 AM EST Office Visit [facility] PULMONARY & CRITICAL CARE MEDICINE [address] [place] [address] Kaitlin Joiner APRN [address] [place] [address] documented as of this encounter Visit Diagnoses [...] documented as of this encounter Care Teams Psychiatric Assistant Relationship Specialty Start Date End Date Marc Rodriguez MD 12[address] [facility] [address] [place] [address] PCP - General Adolescent Medicine 12/08/16 documented as of this encounter
--- OUTSIDE RECORDS SUMMARY | 2025-06-15 08:31 | XMS_ITS | Encounter Summary ---
Author Organization Healthcare Address [address] [place] [address] Care Team Providers Care Tire Bladder Maker Name Role Phone Marc Rodriguez MD Primary Care Provider [phone] Edgardo Zuñiga MD Unavailable [phone] Giulia Briggs Unavailable [phone] Edgardo Zuñiga MD Unavailable [phone] Esther Mathew Unavailable [phone] Encounter Details Date Type Department Care Team (Late st Contact Info) Description 12/16/2023 Orders Only External Location [address] [place] [address] Provider, External Social History Tobacco Use Types [...] [facility] at [facility] [address] [place] [address] Suzan Galindo DO [address] [place] [address] 03/07/2026 9:20 AM EDT Office Visit [facility] Orthopaedic Surgery & Sports Medicine [address] 1[address] [place] [address] Edgardo Zuñiga MD [address] [facility] [address] [place] [address] documented as of this encounter [...] as of this encounter Care Teams Tire Bladder Maker Relationship Specialty Start Date End Date Marc Rodriguez MD [address] [place] [address] PCP - General 12/14/20 Edgardo Zuñiga MD [address] [place] [address] Surgeon Neurosurgery 03/04/21 Giulia Briggs PA [address] [place] [address] Physician Broadcast Operations Manager Neurosurgery 07/03/21 Edgardo Zuñiga MD [address] [place] [address] Surgeon Neurosurgery 09/16/21 Esther aMthew PA [address] [place] [address] Physician Broadcast Operations Manager Neurology 11/19/22 documented as of this encounter
--- OUTSIDE RECORDS SUMMARY | 2025-06-15 08:31 | XMS_ITS | Encounter Summary ---
Author Organization Healthcare Address [address] [place] [address] Care Team Providers Care Oncology Rep Specialist Name Role Phone Marc Rodriguez MD Primary Care Provider [phone] Edgardo Zuñiga MD Unavailable [phone] Giulia Briggs Unavailable [phone] Edgardo Zuñiga MD Unavailable [phone] Esther Mathew Unavailable [phone] Encounter Details Date Type Department Care Team (Late st Contact Info) Description 05/10/2025 Results Follow-Up [facility] [address] [place] [address] Preeti Delacruz Social History Tobacco Use Types [...] Care Team (Nora steward Contact Info) Description 09/11/2025 11:50 AM EST Office Visit [facility] [address] [place] [address] Ryan LauraSuzan matt [address] [place] [address] 03/07/2026 9:20 AM EDT Office Visit [facility] Orthopaedic Surgery & Sports Medicine [address] 1[address] [place] [address] Edgardo Zuñiga MD [address] [place] [address] documented as of this encounter [...] documented as of this encounter Care Teams Oncology Rep Specialist Relationship Specialty Start Date End Date Marc Rodriguez MD [address] [place] [address] PCP - General 12/14/20 Edgardo Zuñiga MD [address] [place] [address] Surgeon Neurosurgery 03/04/21 Giulia Briggs PA [address] [place] [address] Physician Log Deck Tender Neurosurgery 07/03/21 Edgardo Zuñiga MD [address] [place] [address] Surgeon Neurosurgery 09/16/21 Esther Mathew PA [address] [place] [address] Physician Log Deck Tender Neurology 11/19/22 documented as of this encounter
--- OUTSIDE RECORDS SUMMARY | 2025-06-15 08:31 | XMS_ITS | Encounter Summary ---
Author Organization Healthcare Address [address] [place] [address] Care Team Providers Care Roll Sheeting Cutter Name Role Phone Marc Rodriguez MD Primary Care Provider [phone] Edgardo Zuñiga MD Unavailable [phone] Giulia Briggs Unavailable [phone] Edgardo Zuñiga MD Unavailable [phone] Esther Mathew Unavailable [phone] Reason for Visit * Reason Comments Med Refill Encounter Details Date Type Department Care Team (Late st Contact Info) Description 05/13/2025 Refill [place] [facility] [address] 1[address] [place] [address] Esther Mathew PA [address] [place] [address] Social History Tobacco Use Types [...] the past 12 months has th e [employer], gas, oil, or water [employer] threatened to shut off services in your [...] Visit Physical Medicine & Rehabilitation Clinic at [facility] [address] [place] [address] Suzan Galindo, [address] [place] [address] 03/07/2026 9:20 AM EDT Office Visit [facility] Orthopaedic Surgery & Sports Medicine [address] 1[address] [place] [address] Edgardo Zuñiga MD [address] [place] [address] documented as of this encounter [...] documented as of this encounter Care Teams Roll Sheeting Cutter Relationship Specialty Start Date End Date Marc Rodriguez MD [address] [place] [id number] PCP - General 12/14/20 Edgardo Zuñiga MD [address] [place] [address] Surgeon Neurosurgery 03/04/21 Giulia Briggs PA [address] [place] [address] Physician Assembler Dielectric Heater Neurosurgery 07/03/21 Edgardo Zuñiga MD [address] [place] [address] Surgeon Neurosurgery 09/16/21 Esther Mathew PA [address] [place] [address] Physician Assembler Dielectric Heater Neurology 11/19/22 documented as of this encounter
--- OUTSIDE RECORDS SUMMARY | 2025-06-15 08:31 | XMS_ITS | Clinical Summary ---
Author Organization [facility] Address [address] [place] [address] Care Team Providers Care Direct Support Professional Caregiver Name Role Phone Marc Rodriguez MD Primary Care Provider [phone] Allergies Active Allergy Reactions Criticality Noted Date [...] at bedtime. 30 tablet 5 4 Active aspirin 81 MG chewable tablet [...] 2 (Two) Times a Day. 5 Active Breo Ellipta 100-25 MCG/ACT aerosol powderIndication s:Severe persistent asthma without complication Inhale 1 puff by mouth once daily 60 each 3 5 Active rosuvastatin (CRESTOR) 20 MG tablet Take 1 tablet by mouth once daily 90 tablet 1 5 Active Active Problems Problem Noted Date [...] reassessed in 6 months. Discussed with patient [employer] and [employer] provide detailed guidelines for accurate [...] (08/27/2021): Added automatically from request for surgery [id number] Lumbosacral radiculopathy at L5 04/22/2021 Overview (08/27/2021): Added automatically from request for surgery [id number] Chronic bilateral low back pain with bilateral s ciatica 04/22/2021 Overview (08/27/2021): Added automatically from request for surgery [id number] Spinal stenosis, lumbar clara on without neurogenic claudication 04/22/2021 Overview (08/27/2021): Added automatically from request for surgery [id number] Environmental and seasonal allergies 11/12/2020 Restless legs syndrome 11/12/2020 Adrenal insufficiency 02/22/2019 Overview (02/22/2019): chronic steroids - Cortef Rheumatoid arthritis 08/31/2018 Fibromyalgia 08/31/2018 Chronic cough 12/24/2017 Severe persistent asthma without complication Chronic allergic rhinitis 12/24/2017 Gastroesophageal reflux disease 12/24/2017 Encounters Date Type Department Care Team Description 06/09/2025 Telephone [facility] CARDIOLOGY [address] [facility] [address] [place] [address] QAZI- SWELLING IN LEG/FEET 05/04/2025 Refill [facility] CARDIOLOGY [address] [facility] [address] [place] [address] Jimmy Duncan MD Med Refill 04/22/2025 Refill [facility] PULMONARY & CRITICAL CARE MEDICINE [address] [place] [address] Kaitlin Joiner, RISK ADJUSTMENT SPECIALIST Severe persistent asthma without complication from Last 3 Months Immunizations Immunization Administration [...] 06/19/2025 11:45 AM EST Office Visit [facility] CARDIOLOGY [address] [facility] [address] [place] [address] Jimmy Duncan MD 3000 [facility] [address] [place] [address] 06/26/2025 9:30 AM EST Procedure visit [facility] PULMONARY & CRITICAL CARE MEDICINE [address] [place] [address] 06/26/2025 10:00 AM EST Office Visit [facility] PULMONARY & CRITICAL CARE MEDICINE [address] [place] [address] Kaitlin Joiner, RISK ADJUSTMENT SPECIALIST [address] [place] [address] Health Maintenance Due Date Last Done Comments [...] TEST Discontinued FIT Testing (1 year) Discontinued Insurance MEDICARE A & B Member Subscriber Plan / Payer (Ef fective 2014-Present) Name:Mirtha Franka Jovana Member ID:[id number] Relation to Subscriber:Self Name:Sandie Frank Jovana Subscriber ID:[id number] Payer ID:[id number] Group ID:Not on file Type:Not on file Address: [facility] [id number] PPO Care Teams Direct Support Professional Caregiver Relationship Specialty Start Date End Date Marc Rodriguez MD [address] [place] [address] PCP - General Adolescent Medicine 12/08/16
--- OUTSIDE RECORDS SUMMARY | 2025-06-15 08:31 | XMS_ITS | Encounter Summary ---
[facility] Address [address] [place] [address] Care Team Providers Care Asset Protection Specialist Name Role Phone Marc Rodriguez MD Primary Care Provider [phone] Encounter Details Date Type Department Care Team (Late st Contact Info) Description 12/03/2015 External CPT II ANATOMY PROFESSOR - [facility] Social History Tobacco Use [...] 06/19/2025 11:45 AM EST Office Visit [facility] CARDIOLOGY [address] [facility] [address], [place] [address] Jimmy Duncan MD 3000 [facility] [address] [place] [address] 06/26/2025 9:30 AM EST Procedure visit [facility] PULMONARY & CRITICAL CARE MEDICINE [address] [place] [address] 06/26/2025 10:00 AM EST Office Visit [facility] PULMONARY & CRITICAL CARE MEDICINE [address] [address] Kaitlin Joiner, JUNIOR QA ANALYST [address] [place] [address] documented as of this encounter Visit Diagnoses [...] documented as of this encounter Care Teams Asset Protection Specialist Relationship Specialty Start Date End Date Marc Rodriguez MD 12[address] [facility] [address] [place] [address] PCP - General Adolescent Medicine 12/08/16 documented as of this encounter
--- OUTSIDE RECORDS SUMMARY | 2025-06-15 08:31 | XMS_ITS | Encounter Summary ---
[facility] Address [address] [place] [address] Care Team Providers Care Billboard Mechanic Name Role Phone Marc Rodriguez MD Primary Care Provider [phone] Encounter Details Date Type Department Care Team (Late st Contact Info) Description 02/08/2016 External CPT II WILDLIFE ECOLOGY PROFESSOR - [facility] Social History Tobacco [...] 06/19/2025 11:45 AM EST Office Visit [facility] CARDIOLOGY [address] [facility] [address], [place] [address] Jimmy Duncan MD [address] [facility] [address] [place] [address] 06/26/2025 9:30 AM EST Procedure visit [facility] PULMONARY & CRITICAL CARE MEDICINE [address] [place] [address] 06/26/2025 10:00 AM EST Office Visit [facility] PULMONARY & CRITICAL CARE MEDICINE [address] [place] [address] Kaitlin Joiner, TOWER TECHNICIAN [address] [place] [address] documented as of this encounter Visit Diagnoses [...] documented as of this encounter Care Teams Billboard Mechanic Relationship Specialty Start Date End Date Marc Rodriguez MD 1210 [facility] [address] [place] [address] PCP - General Adolescent Medicine 12/08/16 documented as of this encounter
--- OUTSIDE RECORDS SUMMARY | 2025-06-15 08:31 | XMS_ITS | Encounter Summary ---
Author Organization Healthcare Address [address] [place] [address] Care Team Providers Care Artificial Marble Worker Name Role Phone Marc Rodriguez MD Primary Care Provider [phone] Edgardo Zuñiga MD Unavailable [phone] Giulia Briggs Unavailable [phone] Edgardo Zuñiga MD Unavailable [phone] Esther Mathew Unavailable [phone] Reason for Visit * Reason Comments Med Refill Encounter Details Date Type Department Care Team (Late st Contact Info) Description 06/09/2025 Refill [place] [facility] [address] 1st [place] [address] Esther Mathew PA [address] [place] [address] Social History Tobacco Use Types [...] the past 12 months has th e [employer], gas, oil, or water [email or web address] threatened to shut off services in your home? No 05/13/2024 Comments No Sex and Gender Information Value Date Recorded Sex Assigned at Female 07/31/2021 6:10 AM EST Legal Sex Female 8:40 PM EDT Gender Identity Female 07/31/2021 6:10 AM EST Sexual Orientation Not on file documented as of this encounter Miscellaneous Notes * Telephone Encounter - Chen Omalley, PharmD - 06/09/2025 4:39 PM EST 1 medication(s) has been approved per protocol. documented in this encounter Plan of Treatment Upcoming Encounters Date Type Department Care Team (Late st Contact Info) Description 09/11/2025 11:50 AM EST Office Visit [facility] Medicine & [facility] at [facility] [address] [place] [address] Suzan Galindo DO [address] [place] [address] 03/07/2026 9:20 AM EDT Office Visit [facility] Orthopaedic Surgery & Sports Medicine [address] 1[address] [place] [address] Edgardo Zuñiga MD [address] [place] [address] documented as of this encounter [...] documented as of this encounter Care Teams Artificial Marble Worker Relationship Specialty Start Date End Date Marc Rodriguez MD [address] [place] [address] PCP - General 12/14/20 Edgardo Zuñiga MD [address] [place] [address] Surgeon Neurosurgery 03/04/21 Giulia Briggs PA [address] [place] [address] Physician Sleeve Separator Neurosurgery 07/03/21 Edgardo Zuñiga MD [address] [place] [address] Surgeon Neurosurgery 09/16/21 Esther Mathew PA [address] [place] [address] Physician Sleeve Separator Neurology 11/19/22 documented as of this encounter
--- OUTSIDE RECORDS SUMMARY | 2025-06-15 08:31 | XMS_ITS | Encounter Summary ---
[facility] Address [address] [place] [address] Care Team Providers Care Corporate Consultant Name Role Phone Marc Rodriguez MD Primary Care Provider Encounter Details Date Type Department Care Team (Late st Contact Info) Description 06/18/2016 External CPT II POLYMER SCIENTIST - [facility] Social History Tobacco Use [...] CENTER CARDIOLOGY [address] [facility] [address] [address] Jimmy Duncan MD 3000 [facility] [address] [place] [address] 06/26/2025 9:30 AM EST Procedure visit [facility] PULMONARY & CRITICAL CARE MEDICINE [address] [place] [address] 06/26/2025 10:00 AM EST Office Visit [facility] PULMONARY & CRITICAL CARE MEDICINE [address] [place] [address] Kaitlin Joiner, BIOTECH PRODUCTION SPECIALIST [address] [place] [address] documented as of this encounter Visit Diagnoses [...] documented as of this encounter Care Teams Corporate Consultant Relationship Specialty Start Date End Date Marc Rodriguez MD [address] [facility] [address] [place] [address] PCP - General Adolescent Medicine 12/08/16 documented as of this encounter
--- OUTSIDE RECORDS SUMMARY | 2025-06-15 08:31 | XMS_ITS | Encounter Summary ---
Author Organization [facility] Address [address] [place] [address] Care Team Providers Care Tumbler Plater Name Role Phone Marc Rodriguez MD Primary Care Provider [phone] Encounter Details Date Type Department Care Team (Late st Contact Info) Description 12/12/2015 External CPT II VIOLIN MECHANIC - [facility] Social History Tobacco [...] Description 06/19/2025 11:45 AM EST Office Visit [facility] CARDIOLOGY [address] [facility] [address], [place] [address] Jimmy Duncan MD [address] [facility] [address] [place] [address] 06/26/2025 9:30 AM EST Procedure visit [facility] PULMONARY & CRITICAL CARE MEDICINE [address] [place] [address] 06/26/2025 10:00 AM EST Office Visit [facility] PULMONARY & CRITICAL CARE MEDICINE [address] [place] [address] Kaitlin Joiner, VARNISHER APPRENTICE [address] [place] [address] documented as of this encounter Visit Diagnoses [...] documented as of this encounter Care Teams Tumbler Plater Relationship Specialty Start Date End Date Marc Rodriguez MD [address] [facility] [address] [place] [address] PCP - General Adolescent Medicine 12/08/16 documented as of this encounter
--- OUTSIDE RECORDS SUMMARY | 2025-06-15 08:31 | XMS_ITS | Encounter Summary ---
Author Organization [facility] Address [address] [place] [address] Care Team Providers Care Ski Technician Name Role Phone Marc Rodriguez MD Primary Care Provider [phone] Reason for Visit * Reason Comments Med Refill Encounter Details Date Type Department Care Team (Late st Contact Info) Description 04/22/2025 Refill [facility] PULMONARY [facility]ITICAL [facility] MEDICINE [address] [place] [address] Kaitlin Joiner, YARN SPOOLER [address] [place], [place] [id number] Severe persistent asthma without complication Social History [...] 06/19/2025 11:45 AM EST Office Visit [facility] CARDIOLOGY [address] [facility] [address] [place] [address] Jimmy Dunacn MD 3000 [facility] [address] [place] [address] 06/26/2025 9:30 AM EST Procedure visit [facility] PULMON[facility]ICAL [facility]ARE MEDICINE [address] [address] 06/26/2025 10:00 AM EST Office Visit [facility] PUL[facility] MEDICINE [address] [place] [address] Kaitlin Joiner, YARN SPOOLER [address] [place] [address] documented as of this encounter Visit Diagnoses Diagnosis Severe persistent asthma without complication documented in this encounter Care Teams Ski Technician Relationship Specialty Start Date End Date Marc Rodriguez MD [facility] [address] [place] [address] PCP - General Adolescent Medicine 12/08/16 documented as of this encounter
--- OUTSIDE RECORDS SUMMARY | 2025-06-15 08:31 | XMS_ITS | Encounter Summary ---
Author Organization Healthcare Address [address] [place] [address] Care Team Providers Care State Historical Society Director Name Role Phone Marc Rodriguez MD Primary Care Provider [phone] Edgardo Zuñiga MD Unavailable [phone] Giulia Briggs Unavailable [phone] Edgardo Zuñiga MD Unavailable [phone] Esther Mathew Unavailable [phone] Encounter Details Date Type Department Care Team (Latest Contact Info) Description 06/12/2025 Travel Social History Tobacco Use Types Packs/Day [...] [facility] [address] [place] [address] Suzan Galindo, [address] [place] [address] 03/07/2026 9:20 AM EDT Office Visit [facility] Orthopaedic Surgery & Sports Medicine [address] 1[address] [place] [address] Edgardo Zuñiga MD [address] [place] [address] documented as of this encounter Visit Diagnoses [...] documented as of this encounter Care Teams State Historical Society Director Relationship Specialty Start Date End Date Marc Rodriguez MD [address] [facility] [address] [place] [address] PCP - General 12/14/20 Edgardo Zuñiga MD [address] [place] [address] Surgeon Neurosurgery 03/04/21 Giulia Briggs PA [address] [place] [address] Physician Press Puller Neurosurgery 07/03/21 Edgardo Zuñiga MD [address] [place] [address] Surgeon Neurosurgery 09/16/21 Esther Mathew PA [address] [place] [address] Physician Press Puller Neurology 11/19/22 documented as of this encounter
--- OUTSIDE RECORDS SUMMARY | 2025-06-15 08:31 | XMS_ITS | Encounter Summary ---
Author Organization [facility] Address [address] [place] [address] Care Team Providers Care Social Director Name Role Phone Marc Rodriguez MD Primary Care Provider [phone] Edgardo Zuñiga MD Unavailable [phone] Giulia Briggs Unavailable [phone] Edgardo Zuñiga MD Unavailable [phone] Esther Mathew Unavailable [phone] Encounter Details Date Type Department Care Team [...] [facility] [address] [place] [address] Suzan Galindo DO [address] [place] [address] 03/07/2026 9:20 AM EDT Office Visit [facility] Orthopaedic Surgery & Sports Medicine [address] 1[address] [place] [address] Edgardo Zuñiga MD [address] [place] [address] documented as of this encounter Visit Diagnoses [...] as of this encounter Care Teams Social Director Relationship Specialty Start Date End Date Marc Rodriguez MD [address] [place] [address] PCP - General 12/14/20 Edgardo Zuñiga MD [address] [place] [address] Surgeon Neurosurgery 03/04/21 Giulia Briggs PA [address] [place] [address] Physician Miter Cutter Neurosurgery 07/03/21 Edgardo Zuñiga MD [address] [place] [address] Surgeon Neurosurgery 09/16/21 Esther Mathew PA [address] [place] [address] Physician Miter Cutter Neurology 11/19/22 documented as of this encounter
--- OUTSIDE RECORDS SUMMARY | 2025-06-15 08:31 | XMS_ITS | Encounter Summary ---
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 - [facility] Social History Tobacco [...] Description 06/19/2025 11:45 AM EST Office Visit [facility] CARDIOLOGY [address] [facility] [address], [place] [address] Jimmy Duncan MD 3000 [facility] [address] [place] [address] 06/26/2025 9:30 AM EST Procedure visit [facility] PULMONARY & CRITICAL CARE MEDICINE [address] [place] [address] 06/26/2025 10:00 AM EST Office Visit [facility] PULMONARY & CRITICAL CARE MEDICINE [address] [address] Kaitlin Joiner, RESEARCH ASSOCIATE MOLECULAR BIOLOGY [address] [place] [address] documented as of this encounter Visit Diagnoses [...] as of this encounter Care Teams Door Liner Helper Relationship Specialty Start Date End Date Marc Rodriguez MD 1210 [facility] [address] [place] [address] PCP - General Adolescent Medicine 12/08/16 documented as of this encounter
--- OUTSIDE RECORDS SUMMARY | 2025-06-15 08:31 | XMS_ITS | Encounter Summary ---
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 - [facility] Social History Tobacco Use [...] Description 06/19/2025 11:45 AM EST Office Visit [facility] CARDIOLOGY [address] [facility] [address], [place] [address] Jimmy Duncan MD 3000 [facility] [address] [place] [address] 06/26/2025 9:30 AM EST Procedure visit [facility] PULMONARY & CRITICAL CARE MEDICINE [address] [place] [address] 06/26/2025 10:00 AM EST Office Visit [facility] PULMONARY & CRITICAL CARE MEDICINE [address] [place] [address] Kaitlin Joiner, BUSINESS LAWYER [address] [place] [address] documented as of this encounter Visit Diagnoses [...] documented as of this encounter Care Teams Loss Prevention Analyst Relationship Specialty Start Date End Date Marc Rodriguez MD 1210 [facility] [address] [place] [address] PCP - General Adolescent Medicine 12/08/16 documented as of this encounter
--- OUTSIDE RECORDS SUMMARY | 2025-06-15 08:31 | XMS_ITS | Encounter Summary ---
Author Organization [facility] Address [address] [place] [address] Care Team Providers Care Box Coverer Hand Name Role Phone Marc Rodriguez MD Primary Care Provider [phone] Reason for Visit * Reason Onset Date Comments DR. GOSS- SWELLING IN LEG/FEET 06/09/2025 Encounter Details Date Type Department Care Team (Late st Contact Info) Description 06/09/2025 Telephone [facility] CARDIOLOGY [address] [facility] [address], [place] [address] Jimmy Goss MD 3000 [facility] [address], [place] [id number] DR. GOSS- SWELLING IN LEG/FEET Social History Tobacco Use Types Packs/Day Years [...] Telephone Encounter - Irma Hooper MA - 06/09/2025 4:15 PM EST Spoke to patient's . Made patient a sooner appointment. * Telephone Encounter - Beatriz Lux RegSched Rep - 06/09/2025 4:07 PM EST Caller: Jose Frank Relationship: SP[employer] call back number: [phone] What is your medical concern? SWELLING IN BOTH LEGS/FEET FROM KNEES DOWN. How long has this issue been going on? FIRST OF . Is your provider already aware of this issue? NO Have you been treated for this issue? PCP PUT PATIENT ON WATER PILLS BUT THEY DON'T SEEM TO BE HELPING. PATIENT WANTS TO COME IN BEFORE HER SEPTEMBER APPOINTMENT. documented in this encounter Plan of Treatment Upcoming Encounters Date Type Department Care Team (Late st Contact Info) Description 06/19/2025 11:45 AM EST Office Visit [facility] CARDIOLOGY [address] [facility] [address] [place] [address] Jimmy Goss MD [address] [facility] [address] [place] [address] 06/26/2025 9:30 AM EST Procedure visit [facility] PULMONARY & CRITICAL CARE MEDICINE [address] [place] [address] 06/26/2025 10:00 AM EST Office Visit [facility] PULMONARY & CRITICAL CARE MEDICINE [address] [place] [address] Kaitlin Joiner, PLATE GLASS INSTALLER [address] [place] [address] documented as of this encounter Visit Diagnoses Not on filedocumented in this encounter Care Teams Box Coverer Hand Relationship Specialty Start Date End Date Marc Rodriguez MD 1210 [facility] [address] [place] [address] PCP - General Adolescent Medicine 12/08/16 documented as of this encounter
--- OUTSIDE RECORDS SUMMARY | 2025-06-15 08:31 | XMS_ITS | Encounter Summary ---
Author Organization Healthcare Address [address] [place] [address] Care Team Providers Care Knitter Machine Name Role Phone Marc Rodriguez MD Primary Care Provider [phone] Edgardo Zuñiga MD Unavailable [phone] Giulia Briggs Unavailable [phone] Edgardo Zuñiga MD Unavailable [phone] Esther Mathew Unavailable [phone] Encounter Details Date Type Department Care Team (Latest Contact Info) Description 06/03/2025 Travel Social History Tobacco Use Types Packs/Day [...] [facility] [address] [place] [address] Suzan Galindo, [address] [place] [address] 03/07/2026 9:20 AM EDT Office Visit [facility] Orthopaedic Surgery & Sports Medicine [address] 1[address] [place] [address] Edgardo Zuñiga MD [address] [place] [address] documented as of this encounter Visit Diagnoses [...] documented as of this encounter Care Teams Knitter Machine Relationship Specialty Start Date End Date Marc Rodriguez MD [facility] [address] [place] [address] PCP - General 12/14/20 Edgardo Zuñiga MD [address] [place] [address] Surgeon Neurosurgery 03/04/21 Giulia Briggs PA [address] [place] [address] Physician Chuck Tender Neurosurgery 07/03/21 Edgardo Zuñiga MD [address] [place] [address] Surgeon Neurosurgery 09/16/21 Esther Mathew PA [address] [place] [address] Physician Chuck Tender Neurology 11/19/22 documented as of this encounter
--- OUTSIDE RECORDS SUMMARY | 2025-06-15 08:31 | XMS_ITS | Encounter Summary ---
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 - [facility] Social History Tobacco Use [...] Description 06/19/2025 11:45 AM EST Office Visit [facility] CARDIOLOGY [address] [facility] [address], [place] [address] Jimmy Duncan MD 3000 [facility] [address] [place] [address] 06/26/2025 9:30 AM EST Procedure visit [facility] PULMONARY & CRITICAL CARE MEDICINE [address] [place] [address] 06/26/2025 10:00 AM EST Office Visit [facility] PULMONARY & CRITICAL CARE MEDICINE [address] [place] [address] Kaitlin Joiner, SUPERVISOR SPECIAL EDUCATION [address] [place] [address] documented as of this encounter Visit Diagnoses [...] documented as of this encounter Care Teams Technician Chemical Cleaning Relationship Specialty Start Date End Date Marc Rodriguez MD [address]10 [facility] [address] [place] [address] PCP - General Adolescent Medicine 12/08/16 documented as of this encounter
--- OUTSIDE RECORDS SUMMARY | 2025-06-15 08:31 | XMS_ITS | Encounter Summary ---
Author Organization [facility] Address [address] [place] [address] Care Team Providers Care Transcriptionist Name Role Phone Marc Rodriguez MD Primary Care Provider [phone] Encounter Details Date Type Department Care Team (Late st Contact Info) Description 02/10/2025 Telephone [facility] CARDIOLOGY [address] [facility] [address] [place], [place] [address] Jimmy Duncan MD 3000 [facility] [address] [place] [address] Social History Tobacco Use Types Packs/Day Years [...] Description 06/19/2025 11:45 AM EST Office Visit [facility] CARDIOLOGY [address] [facility] [address], [place] [address] Jimmy Duncan MD 3000 [facility] [address] [place] [phone] 06/26/2025 9:30 AM EST Procedure visit [facility] PULMONARY & CRITICAL CARE MEDICINE [address] [facility] [place] [address] 06/26/2025 10:00 AM EST Office Visit [facility] PULMONARY & CRITICAL CARE MEDICINE [address] [facility] [address] Kaitlin Joiner, SCRIPT SUPERVISOR [address] [place] [address] documented as of this encounter Visit Diagnoses Not on filedocumented in this encounter Care Teams Transcriptionist Relationship Specialty Start Date End Date Marc Rodriguez MD 1210 [facility] [address] [place] [address] PCP - General Adolescent Medicine 12/08/16 documented as of this encounter
--- OUTSIDE RECORDS SUMMARY | 2025-06-15 08:31 | XMS_ITS | Encounter Summary ---
Author Organization Healthcare Address [address] [place] [address] Care Team Providers Care Knit Goods Mender Name Role Phone Marc Rodriguez MD Primary Care Provider [phone] Edgardo Zuñiga MD Unavailable [phone] Giulia Briggs Unavailable [phone] Edgardo Zuñiga MD Unavailable [phone] Esther Mathew Unavailable [phone] Reason for Visit * Reason Comments Med Refill Encounter Details Date Type Department Care Team (Late st Contact Info) Description 04/17/2025 Refill [facility] [address] 1st [place] [address] Esther Mathew PA [address] [place] [address] Social History Tobacco Use Types [...] the past 12 months has th e artandseek, gas, oil, or water [employer] threatened to shut off services in your [...] Visit [facility] [address] [place] [address] Suzan Galindo, [address] [place] [address] 03/07/2026 9:20 AM EDT Office Visit [facility] Orthopaedic Surgery & Sports Medicine [address] 1[address] [place] [address] Edgardo Zuñiga MD [address] [place] [address] documented as of this encounter [...] documented as of this encounter Care Teams Knit Goods Mender Relationship Specialty Start Date End Date Marc Rodriguez MD [address] [place] [address] PCP - General 12/14/20 Edgardo Zuñiga MD [address] [place] [address] Surgeon Neurosurgery 03/04/21 Giulia Briggs PA [address] [place] [address] Physician Residential Electrician Neurosurgery 07/03/21 Edgardo Zuñiga MD [address] [place] [address] Surgeon Neurosurgery 09/16/21 Esther Mathew PA [address] [place] [address] Physician Residential Electrician Neurology 11/19/22 documented as of this encounter
--- OUTSIDE RECORDS SUMMARY | 2025-06-15 08:31 | XMS_ITS | Encounter Summary ---
Author Organization Healthcare Address [address] [place] [address] Care Team Providers Care Welding Instructor Name Role Phone Marc Rodriguez MD Primary Care Provider [phone] Edgardo Zuñiga MD Unavailable [phone] Giulia Briggs Unavailable [phone] Edgardo Zuñiga MD Unavailable [phone] Esthre Mathew Unavailable [phone] Encounter Details Date Type Department Care Team (Late st Contact Info) Description 05/08/2025 Orders Only Physical [facility] at [facility] [address] [place] [place] [address] Suzan Galindo DO [address] [place] [address] High risk medication use (Primary [...] the past 12 months has th e [employer], gas, oil, or water [employer] threatened to shut off services in your [...] [facility] [address] [place] [place] [address] Suzan Galindo DO [address] [place] [address] 03/07/2026 9:20 AM EDT Office Visit [facility] Orthopaedic Surgery & Sports Medicine [address] 1[address] [place] [address] Edgardo Zuñiga MD [address] [place] [address] documented as of this encounter Results * (ABNORMAL) Comprehensive metabolic panel (05/09/2025 10:40 AM EDT) Glucose, Plasma 89 74 - 99 mg/dL 05/09/2025 12:33 PM EDT [facility] BUN, Plasma 15 8 - 23 mg/dL 05/09/2025 12:33 PM EDT [facility] Creatinine, Plasma 0.63 0.60 - 1.10 mg/dL 05/09/2025 12:33 PM EDT [facility] BUN/Creatinine Ratio 24 05/09/2025 12:33 PM EDT [facility] Sodium, Plasma 147(H) 136 - 145 mmol/L 05/09/2025 12:33 PM EDT [facility] Potassium, Plasma 4.8 3.6 - 4.9 mmol/L 05/09/2025 12:33 PM EDT [facility] Chloride, Plasma 107 97 - 107 mmol/L 05/09/2025 12:33 PM EDT [facility] CO2, Plasma 31(H) 22 - 29 mmol/L 05/09/2025 12:33 PM EDT [facility] Anion Gap 9 6 - 16 mmol/L 05/09/2025 12:33 PM EDT [facility] Total Calcium, Plasma 9.7 8.9 - 10.2 mg/dL 05/09/2025 12:33 PM EDT [facility] Total Protein 6.3 6.3 - 7.9 g/dL 05/09/2025 12:33 PM EDT [facility] Albumin, Plasma 3.5 3.5 - 5.2 g/dL 05/09/2025 12:33 PM EDT [facility] AST, Plasma 39(H) 10 - 35 U/L 05/09/2025 12:33 PM EDT [facility] ALT, Plasma 25 10 - 35 U/L 05/09/2025 12:33 PM EDT [facility] Alkaline Phosphatase, Plasma 103 46 - 142 U/L 05/09/2025 12:33 PM EDT [facility] Total Bilirubin, Plasma 0.5 0.2 - 1.1 mg/dL 05/09/2025 12:33 PM EDT [facility] eGFRcr 95.0 mL/min/1.7 3m*2 05/09/2025 12:33 PM EDT [facility] Comment:Reported eGFRcr in m L/min/1.73m2 is based the CKD-EPI 2020 equation that does not use a race coefficient. Blood Venous blood specimen / Unknown Venipuncture / Unknown 05/09/2025 10:40 AM EDT 05/09/2025 10:41 AM EDT us Suzan Sanchez DO LAB BLOOD ORDERABLES Final Result Performing Organization Address City/State/[facility] Co de Phone Number [facility] [address] [place] [address] documented in this encounter Visit Diagnoses Diagnosis [...] as of this encounter Care Teams Welding Instructor Relationship Specialty Start Date End Date Marc Rodriguez MD [address] [place] [address] PCP - General 12/14/20 Edgardo Zuñiga MD [address] [place] [address] Surgeon Neurosurgery 03/04/21 Giulia Briggs PA [address] [place] [address] Physician Tape Keller Operator Neurosurgery 07/03/21 Edgardo Zuñiga MD [address] [place] [address] Surgeon Neurosurgery 09/16/21 Esther Mathew PA [address] [place] [address] Physician Tape Keller Operator Neurology 11/19/22 documented as of this encounter
--- OUTSIDE RECORDS SUMMARY | 2025-06-15 08:31 | XMS_ITS | Clinical Summary ---
Author Organization Healthcare Address [address] [place] [address] Care Team Providers Care Field Operator Name Role Phone Marc Rodriguez MD Primary Care Provider [phone] Edgardo Zuñiga MD Unavailable [phone] Giulia Briggs Unavailable [phone] Edgardo Zuñiga MD Unavailable [phone] Esther Mathew Unavailable [phone] Allergies Active Allergy Reactions Criticality Noted Date Comments Azithromycin Rash Low 02/06/2024 Cephalexin Hives,Itching,Rash Medium 10/18/2007 Clindamycin Rash,Swelling High 12/20/2010 Throat swelling Codeine Other - please docum ent in [...] aerosol powder Inhale 1 puff Daily. Active Implanted pain pump by Implant route. Dilaudid [...] days. 1 each 07/19/20 24 025 Active ondansetron (Zofran) 4 MG tablet Take 1 tablet (4 mg) by mouth every 8 hours as needed for nausea. 07/13/20 Active lamoTRIgine (LaMICtal) 100 MG tablet Take 1 tablet (100 mg) by mouth 2 (two) times a day. 180 tablet 09/26/19 25 026 Active memantine (Namenda) 10 MG tablet Take 1 tablet (10 mg) by mouth 2 (two) times a day. 180 tablet 09/26/19 25 026 Active Trulance 3 MG tablet Take 1 tablet by mouth daily. 10/24/19 Active ubrogepant (Ubrelvy) 100 MG tablet TAKE 1 TABLET BY MOUTH ONE TIME NEEDED FOR MIGRAINE. AFTER 2 HOURS, A SECOND DOSE MAY BE TAKEN IF NEEDED. MAX 200MG IN 24 HOURS 10 each 12/10/19 25 Active baclofen (Lioresal) 10 MG tablet Take 1 tablet by mouth 2 times a day. 60 tablet 5 03/09/20 Active Additional Information Patient not taking.Reported on 06/12/2025 busPIRone (Buspar) 5 MG tabletIndicati ons:Total self-care deficit,Impair ed cognition Take 1 tablet by mouth 3 times a day. 90 tablet 3 03/09/20 25 Active dantrolene (Dantrium) 50 MG capsuleIndicat ions:Cervical cord compression with myelopathy (CMS/HCC) Take 2 capsules by mouth 4 times a day. 240 capsule 5 03/09/20 25 Active Additional Information Patient not taking.Reported on 05/25/2025 albuterol 108 (90 Base) MCG/ACT inhaler INHALE 2 PUFFS BY MOUTH EVERY 4 HOURS NEEDED FOR WHEEZING FOR SHORTNESS OF BREATH 03/03/20 Active dantrolene (Dantrium) 50 MG capsule Take 1 capsule by mouth 4 times a day. 90 capsule 5 03/10/20 25 Active Dupixent 300 MG/2ML solution auto-injector Inject 2 mL under the skin every 14 days. 05/05/20 Active gabapentin (Neurontin) 100 MG capsule Take 1 capsule by mouth daily. 05/03/20 Active sodium bicarbonate 650 MG tablet Take 1 tablet by mouth daily. 05/17/20 Active triamcinolone (Kenalog) 0.5 % ointment APPLY OINTMENT TOPICALLY TO AFFECTED AREA TWICE DAILY Active donepezil (Aricept) 23 MG tablet Take 1 tablet by mouth once daily 30 tablet 2 06/09/20 Active furosemide (Lasix) 40 MG tablet Take 1 tablet by mouth daily. 06/10/20 Active potassium chloride CR (K-Tab) 20 MEQ ER tablet Take 1 tablet by mouth. Take with food. 06/10/20 Active Xdemvy 0.25 % solution 06/09/20 Active doxycycline (Periostat) 20 MG tablet Take 1 tablet by mouth 2 times a day. 05/31/20 Active ascorbic acid (Vitamin C) 1000 MG tablet daily. 09/27/19 Active oxyCODONE (Roxicodone) 10 MG immediate release tablet Take 1 tablet (10 mg) by mouth every 4 (four) hours if needed for severe pain. 03/27/20 025 Discontinued amLODIPine (Norvasc) 5 MG tablet Take 1 tablet (5 mg) by mouth daily. 08/17/19 025 Discontinued(P er Patient Report) Linzess 72 MCG capsule capsule Take 1 capsule by mouth daily. 10/04/19 025 Discontinued(P er Patient Report) donepezil (Aricept) 23 MG tablet Take 1 tablet by mouth once daily 30 tablet 05/14/20 025 Discontinued furosemide (Lasix) 20 MG tablet Take 1 tablet by mouth daily. 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 03/18/2024 Motor speech disorder 02/10/2022 Obesity (BMI 30.0-34.9) 10/17/2021 Laryngopharyngeal reflux 10/01/[address] 08/13/2021 Cervical radiculopathy 07/31/2021 Hypothyroidism 07/30/2021 CKD (chronic kidney disease) 07/30/2021 Cervical cord compression with myelopathy 2020 Overview (07/02/2021): Added automatically from request for surgery [id number] Chronic bilateral low back pain with bilateral s ciatica 04/22/2021 Overview (04/22/2021): Added automatically from request for surgery [id number] Environmental and seasonal allergies 11/12/2020 Restless legs [...] Pain 05/12/2024 05/14/2025 Total self-care deficit 02/10/2022 09/2 08/2024 Lumbar stenosis with neurogenic claudication 10/18/2021 Decreased activity tolerance 07/30/2021 04/23/2025 Lumbosacral radiculopathy at L5 04/22/2021 10/18/2021 Overview (04/22/2021): Added automatically from request for surgery [id number] Spinal stenosis, lumbar clara on without neurogenic claudication 04/22/2021 10/18/2021 Overview (04/22/2021): Added automatically from request for surgery [id number] Spondylolisthesis at L4-L5 level 04/22/2021 10/18/2021 Overview (04/22/2021): Added automatically from request for surgery [id number] S/P insertion of intrathecal pump 10/18/2018 04/23/2025 AVN (avascular necrosis of bone) 08/30/2018 07/30/2021 Rotator cuff arthropathy 08/30/2018 Decreased range of motion of shoulder 07/22/2018 07/30/2021 Humeral fracture 04/01/2018 07/30/2021 Biceps tendonitis 04/01/2018 07/30/2021 Rotator cuff dysfunction 04/01/2018 Purpura 06/19/2017 07/30/2021 Itching 06/02/2017 07/30/2021 Status migrainosus 08/08/2015 Encounters Date Type Department Care Team Description 06/12/2025 1:00 PM EST Office Visit [facility] [address] [place] [address] Mook Martinez MD Sensory neuropathy (Primary Dx); Meralgia paresthetica of right side 06/12/2025 Travel 06/09/2025 Refill [facility] [address], [address] [place] [address] Esther Mathew PA 06/07/2025 Travel 06/03/2025 Travel 05/25/2025 2:10 PM EDT Office Visit [facility] [address], [address] [place] [address] Esther Mathew PA Weakness (Primary Dx) 05/25/2025 Travel 05/18/2025 Travel 05/13/2025 Refill [facility] [address] [place] [address] Esther Mathew PA 05/10/2025 Results Follow-Up Physical Medicine & Rehabilitation Clinic at [facility] [address] [place] [address] Preeti Delacruz 05/09/2025 Telephone [facility] at [facility] [address] [place] [address] Suzan Galindo DO HCN - Patient Message 05/09/2025 Travel 05/08/2025 Orders Only [facility] [address] [place] [address] Suzan Galindo DO High risk medication use (Primary Dx) 05/08/2025 Telephone [facility] [address] [place] [address] Suzan Galindo DO HCN Clinical Concern/Question 04/17/2025 Refill [facility] [address] [place] [address] Esther Mathew, PA 04/07/2025 Telephone [facility] [address] [place] [address] Suzan Galindo DO HCN Clinical Concern/Question from Last 3 Months Immunizations Immunization Administration Dates Next Due Hep A, Adult 02/17/2019,07/19/2018 Influenza, High-dose, Split Virus, Trivalent, Injectable, preservative free 07/13/2024,05/01/2023,03/30/2020,05/27 Influenza, Unspecified 05/05/2022,06/03/2018 Influenza, high-dose, quadrivalent 06/07,05/30/2021,03/30/2020,03/30,05/27/2019,05/27/2019 Influenza, injectable, quadrivalent 06/07/2018,1 Influenza, seasonal, injectable 05/24/2015 Influenza, seasonal, injecta ble, preservative free 05/17/2015 Moderna COVID-19 Vaccine (Re d Cap) 12+ years 07/15/2021,10/14/2020,09/16/2020 Pneumococcal Conjugate PCV 13 03/25/2019 Pneumococcal Polysaccharide PPV23 03/11/2022 Pneumococcal, Unspecified 03/10/2016 Rsvpref, Recombinant, Protei n Subunit, Adjuvent 08/13/2023 TD (adult), 2 Lf tetanus tox oid, preservative free, adsorbed 10/07/1996 Tdap 12/09/2022,09/19/2015 Zoster, Recombinant 05/29/2023,01/21/2023 Family History Medical History Relation Name Comments [...] medical appointments or from getting medications? No 10/1 08/2023 In the past 12 months, has l [...] Pulse 55 06/12/2025 12:44 PM EST Temperature 36.8 C (98.3 F) 03/08/2025 2:00 PM EDT Respiratory Rate 16 09/21/2024 11:49 AM EST Oxygen Saturation 95% 06/12/2025 12:44 PM EST Inhaled Oxygen Concentration - - Weight 79.4 kg (175 lb) 06/12/2025 12:44 PM EST Height 170.2 cm (5' 7 ) 06/12/2025 12:44 PM EST Body Mass Index 27.41 06/12/2025 12:44 PM EST Plan of Treatment Upcoming Encounters Date Type Department Care Team (Late st Contact Info) Description 09/11/2025 11:50 AM EST Office Visit [facility] [address] [place] [address] Suzan Galindo, [address] [place] [address] 03/07/2026 9:20 AM EDT Office Visit [facility] Orthopaedic Surgery & Sports Medicine [address], [address] [place] [address] Edgardo Zuñiga MD [address] [place] [address] Health Maintenance Due Date Last Done Comments [facility]-Bone Density Scan 1955 [facility]-Medicare Annual Wellness (AWV) 1955 [facility]-Infant/Child/Adol SDOH Screenings 1955 [facility]- SDOH Screenings 11/01/1971 [facility]-Adult SDOH Screenings 11/01/1971 CT Colonography 1998 Colonoscopy 1998 FIT-DNA 1998 FIT 1998 FOBT 1998 Sigmoidoscopy 1998 [facility]-Colorectal Cancer Screening 1998 [facility]-Breast Cancer Screening 11/01/2003 LED-PDHTJ-58 Vaccine ( season) 2025 07/15/2023, 04/30/2022, 12/19/2021, [...] Screening Completed 04/25/2024 [facility]-Obesity Intervention Completed 025, 05/25/2025, 03/09/2025, Additional history exists HPV Vaccines Aged Out [...] this topic Medical Devices Implanted Type Area Grain Operator Device Identifier Shelf Expiration Date Model / Serial / Lot Cif Ui H 8mm 8deg S - [id number] Implanted:Qty : 1 on 07/31/2021 by Edgardo Zuñiga MD at [facility] Cage N/A: Spine Cervical De[employer]uy Spine Sales LP-[id number] 01/31/2024 [id number] / / [id number] Synchromed Iii Implanted:Qty : 1 on 10/09/2023 Pain Pump Abdomen Medtronic 8667-20 / [id number] / One Level Plate, 12mm - S. - [id number] Implanted:Qty : 1 on 07/31/2021 by Edgardo Zuñiga MD at [facility] Plate N/A: Spine Cervical De[employer] Spine [employer] LP-[id number] 07/31/2021 [id number] / . / Pre-Lordosed Joe W/ Line 40mm - [id number] Implanted:Qty : 2 on 10/16/2021 by Edgardo Zuñiga MD at [facility] Joe Spine Lumbar [employer] Sp[employer] LP-[id number] 10/16/2022 [id number] / / Self Drilling Screw 16mm - S. - [id number] Implanted:Qty : 4 on 07/31/2021 by Edgardo Zuñiga MD at [facility] Screw N/A: Spine Cervical De[employer]uy Spine [employer] LP-[id number] 07/31/2022 [id number] / . / Screw 5.5mm Viper Ti Fen Crtcl Polyax 8mm X 50mm - [id number] Implanted:Qty : 4 on 10/16/2021 by Edgardo Zuñiga MD at [facility] Screw Spine Lumbar [employer] LP-[id number] 10/16/2022 [id number] / / Spinal Cord Stimulator Spinal Cord Stimulator [facility] Vello App [id number] / [id number] / Description:LEADS (2): MODEL # 2218-50 Graft Vivigen 1cc - [id number] Implanted:Qty : 1 on 07/31/2021 by Edgardo Zuñiga MD at [facility]130276 07/15/2022 BL-1500-001 / / [id number] Graft Vivigen 5cc - [id number] Implanted:Qty : 1 on 10/16/2021 by Edgardo Zuñiga MD at [facility] Spine Lumbar [facility]780887 10/11/2022 BL-1500-002 / / [id number] Post Ibf Ui H 12mm 8deg 24/04 - [id number] Implanted:Qty : 1 on 10/16/2021 by Edgardo Zuñiga MD at [facility] Spine Lumbar De[employer] Spine [employer] LP-[id number] 02/01/2022 [id number] / / Post Ibf Ui H 12mm 8deg 24/04 - [id number] Implanted:Qty : 1 on 10/16/2021 by Edgardo Zuñiga MD at [facility] Spine Lumbar [employer] LP-[id number] 05/02/2025 [id number] / / Single Inner Setscrew - [id number] Implanted:Qty : 4 on 10/16/2021 by Edgardo Zuñiga MD at [facility] Spine Lumbar [employer] Spine [employer] LP-058640 10/16/2022 [id number] / / Graft Vivigen 15cc - [id number] - [id number] Implanted:Qty : 1 on 03/18/2024 by Edgardo Zuñiga MD at [facility] N/A: Spine Lumbar [facility]-468549 02/02/2025 -1500-004 -[id number] / [id number] / [id number] Screw 5.5mm Viper Ti Fen Crtcl Polyax 7mm X 50mm - [id number] Implanted:Qty : 3 on 03/18/2024 by Edgardo Zuñiga MD at [facility] N/A: Spine Lumbar De[employer] Spine [employer] LP-147528 [id number] / / Single Inner Setscrew - [id number] Implanted:Qty : 6 on 03/18/2024 by Edgardo Zuñiga MD at [facility] N/A: Spine Lumbar De[employer] Spine [employer] LP-470923 [id number] / / Pre-Lordosed Joe W/ Line 65mm - [id number] Implanted:Qty : 2 on 03/18/2024 by Edgardo Zuñiga MD at [facility] N/A: Spine Lumbar DePuy Spine Sales LP-834334 [id number] / / Procedures Procedure Name Priority Date/Time Associated Diagnosis Comments COMPREHENSIVE METABOLIC PANEL, PLASMA Routine 05/09/2025 10:40 AM EDT High risk medication use HEPATITIS C ANTIBODY - ED W/REFLEX TO HCV QUANT PCR STAT 04/25/2024 10:55 PM EDT from Last 3 Months or Most Recently Relevant to Health Maintenance Results * (ABNORMAL) Comprehensive metabolic panel (05/09/2025 10:40 AM EDT) Glucose, Plasma 89 74 - 99 mg/dL 05/09/2025 12:33 PM EDT [facility] BUN, Plasma 15 8 - 23 mg/dL 05/09/2025 12:33 PM EDT [facility] Creatinine, Plasma 0.63 0.60 - 1.10 mg/dL 05/09/2025 12:33 PM EDT [facility] BUN/Creatinine Ratio 24 05/09/2025 12:33 PM EDT [facility] Sodium, Plasma 147(H) 136 - 145 mmol/L 05/09/2025 12:33 PM EDT [facility] Potassium, Plasma 4.8 3.6 - 4.9 mmol/L 05/09/2025 12:33 PM EDT [facility] Chloride, Plasma 107 97 - 107 mmol/L 05/09/2025 12:33 PM EDT [facility] CO2, Plasma 31(H) 22 - 29 mmol/L 05/09/2025 12:33 PM EDT [facility] Anion Gap 9 6 - 16 mmol/L 05/09/2025 12:33 PM EDT [facility] Total Calcium, Plasma 9.7 8.9 - 10.2 mg/dL 05/09/2025 12:33 PM EDT [facility] Total Protein 6.3 6.3 - 7.9 g/dL 05/09/2025 12:33 PM EDT [facility] Albumin, Plasma 3.5 3.5 - 5.2 g/dL 05/09/2025 12:33 PM EDT [facility] AST, Plasma 39(H) 10 - 35 U/L 05/09/2025 12:33 PM EDT [facility] ALT, Plasma 25 10 - 35 U/L 05/09/2025 12:33 PM EDT [facility] Alkaline Phosphatase, Plasma 103 46 - 142 U/L 05/09/2025 12:33 PM EDT [facility] Total Bilirubin, Plasma 0.5 0.2 - 1.1 mg/dL 05/09/2025 12:33 PM EDT [facility] eGFRcr 95.0 mL/min/1.7 3m*2 05/09/2025 12:33 PM EDT [facility] Comment:Reported eGFRcr in m L/min/1.73m2 is based the CKD-EPI 2020 equation that does not use a race coefficient. Blood Venous blood specimen / Unknown Venipuncture / Unknown 05/09/2025 10:40 AM EDT 05/09/2025 10:41 AM EDT us Suzan Sanchez DO LAB BLOOD ORDERABLES Final Result [facility] [address] [place] [address] * Hepatitis C Antibody - ED (04/25/2024 10:55 PM EDT) Hepatitis C Antibody Negative Negative 04/25/2024 11:46 PM EDT [facility] Blood Venous blood specimen / Unknown Venipuncture / Unknown 04/25/2024 10:55 PM EDT 04/25/2024 11:05 PM EDT us Yelena Mcqueen MD LAB BLOOD ORDERABLES Final Res ult [facility] [address] [place] [address] from Last 3 Months or Most Recently Relevant to Health Maintenance Insurance MEDICARE [facility] Advance Directives * Full Code [...] Patient has decision-making capacity? Yes Care Teams Field Operator Relationship Specialty Start Date End Date Marc Rodriguez MD [address] [place], [place] [address] PCP - General 12/14/20 Edgardo Zuñiga MD [address] [place] [address] Surgeon Neurosurgery 03/04/21 Giulia Briggs PA [address] [place] [address] Physician Claim Benefit Specialist Neurosurgery 07/03/21 Edgardo Zuñiga MD [address] [place] [address] Surgeon Neurosurgery 09/16/21 Esther Mathew PA [address] [place] [address] Physician Claim Benefit Specialist Neurology 11/19/22
--- OUTSIDE RECORDS SUMMARY | 2025-06-15 08:31 | XMS_ITS | Encounter Summary ---
Author Organization Healthcare Address [address] [place] [address] Care Team Providers Care Lard Tub Washer Name Role Phone Marc Rodriguez MD Primary Care Provider [phone] Edgardo Zuñiga MD Unavailable [phone] Giulia Briggs Unavailable [phone] Edgardo Zuñiga MD Unavailable [phone] Esther Mathew Unavailable [phone] Reason for Visit * Reason Onset Date Comments HCN Clinical Concern/Question 05/08/2025 Encounter Details Date Type Department Care Team (Late st Contact Info) Description 05/08/2025 Telephone Physical Medicine & Rehabilitation Clinic at [facility] [address] [place] [address] Suzan Galindo DO [address] [facility] [address] [place] [address] HCN Clinical Concern/Question Social History [...] I will send her a message on [employer] * Telephone Encounter - Preeti Delacruz - 05/08/2025 11:28 AM EDT Called pt she said she will be in [place] tomorrow morning and she wanted to do [...] orders for her liver Best contact number: [phone] (mobile) Optimal time of day to reach caller: ANYTIME Additional comments/information from caller: None Note: Please do not reply to this message. Follow-up communication and further actions as a result of this message need to be communicated with the patient directly, if the patient is not active onMyChart. If the patient is active on MyChart, they will receive notification of the communication/outcome via [employer]. documented in this encounter Plan of Treatment Upcoming Encounters Date Type Department Care Team (Late st Contact Info) Description 09/11/2025 11:50 AM EST Office Visit [facility] at [facility] [address] [place] [address] Suzan Galindo, [address] [place] [address] 03/07/2026 9:20 AM EDT Office Visit [facility] Orthopaedic Surgery & Sports Medicine [address] [place] [address] Edgardo Zuñiga MD [address] [place] [address] documented as of this encounter Visit Diagnoses [...] documented as of this encounter Care Teams Lard Tub Washer Relationship Specialty Start Date End Date Marc Rodriguez MD [address] [place], [place] [id number] PCP - General 12/14/20 Edgardo Zuñiga MD [address] [place] [address] Surgeon Neurosurgery 03/04/21 Giulia Briggs PA [address] [place] [address] Physician Principal Biostatistician Neurosurgery 07/03/21 Edgardo Zuñiga MD [address] [place] [address] Surgeon Neurosurgery 09/16/21 Esther Mathew PA [address] [place] [address] Physician Principal Biostatistician Neurology 11/19/22 documented as of this encounter
--- OUTSIDE RECORDS SUMMARY | 2025-06-15 08:31 | XMS_ITS | Encounter Summary ---
Author Organization Healthcare Address [address] [place] [address] Care Team Providers Care Food Service Team Member Name Role Phone Marc Rodriguez MD Primary Care Provider [phone] Edgardo Zuñiga MD Unavailable [phone] Giulia Briggs Unavailable [phone] Edgardo Zuñiga MD Unavailable [phone] Esther Mathew Unavailable [phone] Encounter Details Date Type Department Care Team (Latest Contact Info) Description 06/07/2025 Travel Social History Tobacco Use Types Packs/Day [...] Rehabilitation Clinic at [facility] [address] [place] [address] Suzan Galindo, [address] [place] [address] 03/07/2026 9:20 AM EDT Office Visit [facility] Orthopaedic Surgery & Sports Medicine [address] [place] [address] Edgardo Zuñiga MD [address] [place] [address] documented as of this encounter Visit Diagnoses [...] as of this encounter Care Teams Food Service Team Member Relationship Specialty Start Date End Date Marc Rodriguez MD Counts include 234 beds at the [facility] [address] [place] [address] PCP - General 12/14/20 Edgardo Zuñiga MD [address] [place] [address] Surgeon Neurosurgery 03/04/21 Giulia Briggs PA [address] [place] [address] Physician Senior Research Fellow Neurosurgery 07/03/21 Edgardo Zuñiga MD [address] [place] [address] Surgeon Neurosurgery 09/16/21 Esther Mathew PA [address] [place] [address] Physician Senior Research Fellow Neurology 11/19/22 documented as of this encounter
--- OUTSIDE RECORDS SUMMARY | 2025-06-15 08:31 | XMS_ITS | Encounter Summary ---
Author Organization Healthcare Address [address] [place] [address] Care Team Providers Care Lap Machine Operator Name Role Phone Marc Rodriguez MD Primary Care Provider [phone] Edgardo Zuñiga MD Unavailable [phone] Giulia Briggs Unavailable [phone] Edgardo Zuñiga MD Unavailable [phone] Esther Mathew Unavailable [phone] Reason for Visit * Reason Onset Date Comments HCN - Patient Message 05/09/2025 Encounter Details Date Type Department Care Team (Late st Contact Info) Description 05/09/2025 Telephone Physical Medicine & Rehabilitation Clinic at [facility] [address] [place] [address] Suzan Galindo DO [address] [facility] [address] [place] [address] HCN - Patient Message Social [...] yet. * Telephone Encounter - Dona Fuentes - 05/09/2025 3:30 PM EDT Clinical Concern/Question Reason for Call: Dr. Sanchez pt. This pt cannot get into her mychart to check her results of her labwork. She is requesting a call back from the clinic for the results. Best contact number: [phone] (mobile) Optimal time of day to reach caller: ANYTIME Additional comments/information from caller: None Note: Please do not reply to this message. Follow-up communication and further actions as a result of this message need to be communicated with the patient directly, if the patient is not active onMyChart. If the patient is active on MyChart, they will receive notification of the communication/outcome via [employer]. documented in this encounter Plan of Treatment Upcoming Encounters Date Type Department Care Team (Late st Contact Info) Description 09/11/2025 11:50 AM EST Office Visit [facility] Clinic at [facility] [address] [place] [address] Suzan Galindo DO [address] [place] [address] 03/07/2026 9:20 AM EDT Office Visit [facility] Orthopaedic Surgery & Sports Medicine [address] [place] [address] Edgardo Zuñiga MD [address] [place] [address] documented as of this encounter [...] documented as of this encounter Care Teams Lap Machine Operator Relationship Specialty Start Date End Date Marc Rodriguez MD [address] [place] [address] PCP - General 12/14/20 Edgardo Zuñiga MD [address] [place] [address] Surgeon Neurosurgery 03/04/21 Giulia Briggs PA [address] [place] [address] Physician Hospitality Coordinator Neurosurgery 07/03/21 Edgardo Zuñiga MD [address] [place] [address] Surgeon Neurosurgery 09/16/21 Esther Mathew PA [address] [place] [address] Physician Hospitality Coordinator Neurology 11/19/22 documented as of this encounter
--- OUTSIDE RECORDS SUMMARY | 2025-06-15 08:31 | XMS_ITS | Encounter Summary ---
Author Organization Healthcare Address [address] [place] [address] Care Team Providers Care Biodiesel Processing Technician Name Role Phone Marc Rodriguez MD Primary Care Provider [phone] Edgardo Zuñiga MD Unavailable [phone] Giulia Briggs Unavailable [phone] Edgardo Zuñiga MD Unavailable [phone] Eshter Mathew Unavailable [phone] Reason for Visit * Reason Onset Date Comments Med Refill 07/05/2024 Encounter Details Date Type Department Care Team (Late st Contact Info) Description 07/05/2024 [facility]ill [facility] [address] [place] [address] Esther Mathew PA [address] [place] [address] Social History Tobacco Use Types [...] the past 12 months has th e [employer], gas, oil, or water company threatened to [...] Visit [facility] [address] [place] [address] Suzan Galindo DO [address] [place] [address] 03/07/2026 9:20 AM EDT Office Visit [facility] Orthopaedic Surgery & Sports Medicine [address] [place] [address] Edgardo Zuñiga MD [address] [place] [address] documented as of this encounter [...] documented as of this encounter Care Teams Biodiesel Processing Technician Relationship Specialty Start Date End Date Marc Rodriguez MD [address] [place] [address] PCP - General 12/14/20 Edgardo Zuñiga MD [address] [place] [address] Surgeon Neurosurgery 03/04/21 Giulia Briggs PA [address] [place] [address] Physician Under Baster Neurosurgery 07/03/21 Edgardo Zuñiga MD [address] [place] [address] Surgeon Neurosurgery 09/16/21 Esther Mathew PA [address] [place] [address] Physician Under Baster Neurology 11/19/22 documented as of this encounter
--- OUTSIDE RECORDS SUMMARY | 2025-06-15 08:31 | XMS_ITS | Encounter Summary ---
[facility] Organization [facility] Address [address] [place] [address] Care Team Providers Care Clinical Services Manager Name Role Phone Marc Rodriguez MD Primary Care Provider [phone] Encounter Details Date Type Department Care Team (Late st Contact Info) Description 10/16/2015 External CPT II REJECT OPENER - [facility] Social History Tobacco Use [...] Office Visit [facility] CARDIOLOGY [address] [facility] [address], [place] [address] Jimmy Duncan MD [address] [facility] [address] [place] [address] 06/26/2025 9:30 AM EST Procedure visit [facility] PULMONARY & CRITICAL CARE MEDICINE [address] [place] [address] 06/26/2025 10:00 AM EST Office Visit [facility] PULMONARY & CRITICAL CARE MEDICINE [address] [place] [address] Kaitlin Joiner, USED BUILDING MATERIALS YARD WORKER [address] [place] [address] documented as of this encounter Visit Diagnoses [...] as of this encounter Care Teams Clinical Services Manager Relationship Specialty Start Date End Date Marc Rodriguez MD [address] [facility] [address] [place] [address] PCP - General Adolescent Medicine 12/08/16 documented as of this encounter
--- OUTSIDE RECORDS SUMMARY | 2025-06-15 08:31 | XMS_ITS | Encounter Summary ---
[facility] Address [address] [place] [address] Care Team Providers Care Civil Engineer In Training Name Role Phone Marc Rodriguez MD Primary Care Provider [phone] Encounter Details Date Type Department Care Team (Late st Contact Info) Description 07/31/2015 External CPT II CARE TRANSPORT NURSE - [facility] Social History Tobacco Use [...] Description 06/19/2025 11:45 AM EST Office Visit [facility] CARDIOLOGY [address] [facility] [address], [place] [address] Jimmy Duncan MD [address] [facility] [address] [place] [address] 06/26/2025 9:30 AM EST Procedure visit [facility] PULMONARY & CRITICAL CARE MEDICINE [address] [place] [address] 06/26/2025 10:00 AM EST Office Visit [facility] PULMONARY & CRITICAL CARE MEDICINE [address] [place] [address] Kaitlin Joiner, ACCOUNTANT HELPER [address] [place] [address] documented as of this encounter Visit Diagnoses [...] documented as of this encounter Care Teams Civil Engineer In Training Relationship Specialty Start Date End Date Marc Rodriguez MD [address] [facility] [address] [place] [address] PCP - General Adolescent Medicine 12/08/16 documented as of this encounter
--- OUTSIDE RECORDS SUMMARY | 2025-06-15 08:32 | XMS_ITS | Encounter Summary ---
[facility] Address [address] [place] [address] Care Team Providers Care Family Medicine Chair Name Role Phone Marc Rodriguez MD Primary Care Provider [phone] Encounter Details Date Type Department Care Team (Late st Contact Info) Description 10/12/2014 External CPT II INSTRUMENT AND ELECTRICAL TECHNICIAN - [facility] Social History Tobacco [...] [facility] C[facility]OLOGY [address] [facility] [address], [place] [address] Jimmy Duncan MD [address] [facility] [address] [place] [address] 06/26/2025 9:30 AM EST Procedure visit [facility] PULMONARY & CRITICAL CARE MEDICINE [address] [place] [address] 06/26/2025 10:00 AM EST Office Visit [facility] PULMONARY & CRITICAL CARE MEDICINE [address] [place] [address] Kaitlin Joiner, EXPLOSIVES HANDLER [address] [place] [address] documented as of this encounter Visit Diagnoses [...] as of this encounter Care Teams Family Medicine Chair Relationship Specialty Start Date End Date Marc Rodriguez MD [address] [facility] [address] [place] [address] PCP - General Adolescent Medicine 12/08/16 documented as of this encounter
--- OUTSIDE RECORDS SUMMARY | 2025-06-15 08:32 | XMS_ITS | Encounter Summary ---
Author Organization [facility] Address [address] [place] [address] Care Team Providers Care Cna Hha Name Role Phone Marc Rodriguez MD Primary Care Provider [phone] Encounter Details Date Type Department Care Team (Late st Contact Info) Description 11/13/2014 External CPT II TUBE SORTER - [facility] Social History Tobacco Use [...] Description 06/19/2025 11:45 AM EST Office Visit [facility] CARDIOLOGY [address] [facility] [address], [place] [address] Jimmy Duncan MD [address] [facility] [address] [place] [address] 06/26/2025 9:30 AM EST Procedure visit [facility] PULMONARY & CRITICAL CARE MEDICINE [address] [place] [address] 06/26/2025 10:00 AM EST Office Visit [facility] PULMONARY & CRITICAL CARE MEDICINE [address] [place] [address] Kaitlin Joiner, MASTER SONAR TECHNICIAN [address] [place] [address] documented as of this encounter Visit Diagnoses [...] documented as of this encounter Care Teams Cna Hha Relationship Specialty Start Date End Date Marc Rodriguez MD [address] [facility] [address] [place] [address] PCP - General Adolescent Medicine 12/08/16 documented as of this encounter
--- OUTSIDE RECORDS SUMMARY | 2025-06-15 08:32 | XMS_ITS | Encounter Summary ---
Author Organization [facility] Address [address] [place] [address] Care Team Providers Care Medical Care Evaluation Specialist Name Role Phone Marc Rodriguez MD Primary Care Provider [phone] Edgardo Zuñiga MD Unavailable [phone] Giulia Briggs Unavailable [phone] Edgardo Zuñiga MD Unavailable [phone] Esther Mathew Unavailable [phone] Encounter Details Date Type Department Care Team (Latest Contact Info) Description 05/18/2025 Travel Social History Tobacco Use Types Packs/Day [...] & Rehabilitation [facility] at [facility] [address] [place] [address] Suzan Galindo DO [address] [place] [address] 03/07/2026 9:20 AM EDT Office Visit [facility] Orthopaedic Surgery & Sports Medicine [address] 1[address] [place] [address] Edgardo Zuñiga MD [address] [place] [address] documented as of this encounter Visit Diagnoses [...] as of this encounter Care Teams Medical Care Evaluation Specialist Relationship Specialty Start Date End Date Marc Rodriguez MD [address] [place] [address] PCP - General 12/14/20 Edgardo Zuñiga MD [address] [place] [address] Surgeon Neurosurgery 03/04/21 Giulia Briggs PA [address] [place] [address] Physician Triple Valve Mechanic Neurosurgery 07/03/21 Edgardo Zuñiga MD [address] [place] [address] Surgeon Neurosurgery 09/16/21 Esther Mathew PA [address] [place] [phone] Physician Triple Valve Mechanic Neurology 11/19/22 documented as of this encounter
--- OUTSIDE RECORDS SUMMARY | 2025-06-15 08:32 | XMS_ITS | Encounter Summary ---
[facility] Address [address] [place] [place] [address] Care Team Providers Care Tubing Mill Operator Name Role Phone Marc Rodriguez MD Primary Care Provider [phone] Encounter Details Date Type Department Care Team (Late st Contact Info) Description 01/11/2015 External CPT II RIM TECHNICIAN - [facility] Social History Tobacco [...] Description 06/19/2025 11:45 AM EST Office Visit [facility] CARDIOLOGY [address] [facility] [address] [address] Jimmy Duncan MD [address] [facility] [address] [place] [address] 06/26/2025 9:30 AM EST Procedure visit [facility] PULMONARY & CRITICAL CARE MEDICINE [address] [place] [address] 06/26/2025 10:00 AM EST Office Visit [facility] PULMONARY & CRITICAL CARE MEDICINE [address] [place] [address] Kaitlin Joiner, FOREMAN/PROJECT MANAGER [address] [place] [address] documented as of this encounter Visit Diagnoses [...] documented as of this encounter Care Teams Tubing Mill Operator Relationship Specialty Start Date End Date Marc Rodriguez MD [address] [facility] [address] [place] [address] PCP - General Adolescent Medicine 12/08/16 documented as of this encounter
--- OUTSIDE RECORDS SUMMARY | 2025-06-15 08:32 | XMS_ITS | Encounter Summary ---
[facility] Address [address] [place] [address] Care Team Providers Care Sheet Turner Name Role Phone Marc Rodriguez MD Primary Care Provider [phone] Encounter Details Date Type Department Care Team (Late st Contact Info) Description 06/18/2015 External CPT II COLLEGE ARCHIVIST - [facility] Social History Tobacco Use [...] Visit [facility] C[facility] [address] [facility] [address], [place] [address] Jimmy Duncan MD [address] [facility] [address] [place] [address] 06/26/2025 9:30 AM EST Procedure visit [facility] PULMONARY & CRITICAL CARE MEDICINE [address] [place] [address] 06/26/2025 10:00 AM EST Office Visit [facility] PULMONARY & CRITICAL CARE MEDICINE [address] [place] [address] Kaitlin Joiner, INTERIOR PANELER [address] [place] [address] documented as of this encounter Visit Diagnoses [...] documented as of this encounter Care Teams Sheet Turner Relationship Specialty Start Date End Date Marc Rodriguez MD [address] [facility] [address] [place] [address] PCP - General Adolescent Medicine 12/08/16 documented as of this encounter
--- OUTSIDE RECORDS SUMMARY | 2025-06-15 08:32 | XMS_ITS | Encounter Summary ---
[facility] [address] [place] [address] Care Team Providers Care Health Communications Specialist Name Role Phone Marc Rodriguez MD Primary Care Provider [phone] Encounter Details Date Type Department Care Team (Late st Contact Info) Description 10/10/2014 External CPT II CABLE TELEVISION INSTALLER - [facility] Social History Tobacco Use [...] Description 06/19/2025 11:45 AM EST Office Visit [facility] CARDIOLOGY [address] [facility] [address], [place] [address] Jimmy Duncan MD [address] [facility] [address] [place] [address] 06/26/2025 9:30 AM EST Procedure visit [facility] PULMONARY & CRITICAL CARE MEDICINE [address] [place] [address] 06/26/2025 10:00 AM EST Office Visit [facility] PULMONARY & CRITICAL CARE MEDICINE [address] [place] [address] Kaitlin Joiner, DIRECTOR OF PRODUCT MARKETING [address] [place] [address] documented as of this encounter Visit Diagnoses [...] documented as of this encounter Care Teams Health Communications Specialist Relationship Specialty Start Date End Date Marc Rodriguez MD [address]10 [facility] [address] [place] [address] PCP - General Adolescent Medicine 12/08/16 documented as of this encounter
--- OUTSIDE RECORDS SUMMARY | 2025-06-15 08:32 | XMS_ITS | Clinical Summary ---
Author Organization [facility] Address [address] [facility] [address] [place] [address] Care Team Providers Care Hospitality Services Manager Name Role Phone Unavailable Primary [...] SDOH Screening 08/03/2024 COVID-19 Vaccine ( - 2024-2 6 season) 2025 Influenza Vaccine (#1) 2025 HIB [...] age to complete this topic Insurance MEDICARE [address]
--- OUTSIDE RECORDS SUMMARY | 2025-06-15 08:32 | XMS_ITS | Encounter Summary ---
Author Organization [facility] Address [address] [place] [address] Care Team Providers Care Floor Finisher Helper Name Role Phone Marc Rodriguez MD Primary Care Provider [phone] Reason for Visit * Reason Comments Med Refill Encounter Details Date Type Department Care Team (Late st Contact Info) Description 05/04/2025 Refill [facility] CARDIOLOGY [address] [facility] [address], [place] [address] Jimmy Duncan MD [address] [facility] [address] [address] Med Refill Social History Tobacco Use Types [...] Description 06/19/2025 11:45 AM EST Office Visit [facility] CARDIOLOGY [address] [facility] [address] [place] [address] Jimmy Duncan MD [address] [facility] [address] [place] [address] 06/26/2025 9:30 AM EST Procedure visit [facility] PULMONARY & CRITICAL CARE MEDICINE [address] [place] [address] 06/26/2025 10:00 AM EST Office Visit [facility] PULMONARY & CRITICAL CARE MEDICINE [address] [place] [address] Kaitlin oJiner, CERTIFIED DETENTION DEPUTY [address] [place] [address] documented as of this encounter Visit Diagnoses Not on filedocumented in this encounter Care Teams Floor Finisher Helper Relationship Specialty Start Date End Date Marc Rodriguez MD [address] [facility] [address] [place] [address] PCP - General Adolescent Medicine 12/08/16 documented as of this encounter
--- OUTSIDE RECORDS SUMMARY | 2025-06-15 08:32 | XMS_ITS | Encounter Summary ---
Author Organization Healthcare Address [address] [place] [address] Care Team Providers Care Milling Supervisor Name Role Phone Marc Rodriguez MD Primary Care Provider [phone] Edgardo Zuñiga MD Unavailable [phone] Giulia Briggs Unavailable [phone] Edgardo Zuñiga MD Unavailable [phone] Esther Mathew Unavailable [phone] Encounter Details Date Type Department Care Team (Latest Contact Info) Description 05/25/2025 Travel Social History Tobacco Use Types Packs/Day [...] [facility] [address] [place] [address] Suzan Galindo, [address] [place] [address] 03/07/2026 9:20 AM EDT Office Visit [facility] Orthopaedic Surgery & Sports Medicine [address] 1[address] [place] [address] Edgardo Zuñiga MD [address] [place] [address] documented as of this encounter Visit Diagnoses [...] documented as of this encounter Care Teams Milling Supervisor Relationship Specialty Start Date End Date Marc Rodriguez MD [facility] [address] [place] [address] PCP - General 12/14/20 Edgardo Zuñiga MD [address] [place] [address] Surgeon Neurosurgery 03/04/21 Giulia Briggs PA [address] [place] [address] Physician Upholstery Auto Trimmer Neurosurgery 07/03/21 Edgardo Zuñiga MD [address] [place] [address] Surgeon Neurosurgery 09/16/21 Esther Mathew PA [address] [place] [address] Physician Upholstery Auto Trimmer Neurology 11/19/22 documented as of this encounter
--- OUTSIDE RECORDS SUMMARY | 2025-06-15 08:32 | XMS_ITS ---
Author Organization [facility] Address [address] [place] [address] Care Team Providers Care Chemicals Distiller Name Role Phone Marc Rodriguez MD Primary Care Provider [phone] Asthma - External Fill Status:Enrolled (Active) Start date:05/10/2024 Enrollment date:05/10/2024 Enrollment reason:Identified as being on target medication Current support & services provided:Refill Coordination , Benefits Investigation, Prior Authorization, External Pharmacy Dispensing Linked medications:Dupilumab () Linked problems:Severe persistent asthma without complication (Active) Continued Care and Services Coordination
--- OUTSIDE RECORDS SUMMARY | 2025-06-15 08:32 | XMS_ITS | Clinical Summary ---
Author Organization [facility] Address [address] [facility] [address] [place] [address] Phone Care Team Providers Care Contract Preparer Name Role Phone Rodrigo Avelar MD Unavailable [phone] Conditions or Problems No information available. Medications No information available. Medications Administered No information available. Allergies, Adverse Reactions, Alerts No information available. Results No information available. Plan of Care No information available. Procedures No information available. Vital Signs No information available. Immunizations No information available. Advance Directives No information available.
[2025-06-15 10:02] LABS: Alanine Aminotransferase 18 U/L (12-78); Albumin Level 3.9 g/dl (3.5-5.0); Albumin/Globulin Ratio 1.4 (1.1-1.8); Alkaline Phosphatase 108 U/L (38-126); Anion Gap 8.0 mEq/L (5-15); Aspartate Amino Transferase 40 U/L (14-36); Bilirubin,Total 0.6 mg/dl (0.2-1.3); Blood Urea Nitrogen 36 mg/dl (7-17); Calcium 9.9 mg/dl (8.4-10.2); Carbon Dioxide 32 mmol/L (22.0-30.0); Chloride 104 mmol/L (98-107); Creatinine,Serum 0.70 mg/dl (0.52-1.04); Estimated Glomerular Filt Rate 82 ml/min (>60); GFR (African American) 100 ML/MIN (>60); Globulin 2.8 g/dL (1.3-3.2); Glucose 76 mg/dl (74-100); Potassium 4.0 mmoL/L (3.5-5.1); Sodium 140 mmol/L (136-145); Total Protein,Serum 6.7 g/dl (6.3-8.2)
== END 2025-06-15 23:59 | disposition home or self-care (01) ==
LOC: LAB 08:27
PROVIDERS: PCP Internal Medicine Adolescent Medicine; Visit Provider Nurse Practitioner Family
DX: R60.0 Localized edema (principal)
CPT/HCPCS: 36415; 80053

== ENCOUNTER 2025-06-30 11:00 | Outpatient (RCR) | payer MEDICARE, BC, SELFPAY | END 2025-06-30 23:59 | disposition home or self-care (01) | LOC: OT 11:00 | PROVIDERS: PCP Internal Medicine Adolescent Medicine; Visit Provider Internal Medicine Adolescent Medicine | DX: G60.9 Hereditary and idiopathic neuropathy, unspecified (principal); R27.0 Ataxia, unspecified; M47.814 Spondylosis without myelopathy or radiculopathy, thoracic region | CPT/HCPCS: 97110; 97140; 97530 ==

== ENCOUNTER 2025-07-20 10:21 | Outpatient (CLI) | payer MEDICARE, BC, SELFPAY ==
--- OUTSIDE RECORDS SUMMARY | 2017-12-24 09:37 | XMS_ITS | Encounter Summary ---
Author Organization [facility] Address [address] [place] [address] Care Team Providers Care Senior Javascript Engineer Name Role Phone Marc Rodriguez MD Primary Care Provider [phone] Encounter Details Date Type Department Care Team (Late Contact Info) Description 12/24/2017 10:37 AM EDT Hospital [facility] PULMONARY & CRITICAL CARE MEDICINE [address] [place] [phone] Social History Tobacco Use Types Packs/Day Years Used Date Smoking Tobacco: Never Smokeless Tobacco: Never Alcohol Use Standard Drinks/Week Comments No 0 (1 standard drink = 0.6 oz pur e alcohol) Comments No Sex and Gender Information Value Date Recorded Sex Assigned at Female 12/29/2024 10:37 AM EDT Legal Sex Female 10:05 AM EDT Gender Identity Not on file Sexual Orientation Not on file documented as of this encounter Plan of Treatment Upcoming Encounters Date Type Department Care Team (Late Contact Info) Description 07/25/2025 9:00 AM EST Appointment [facility] NONINVASIVE LAB [place] [address] [place] [id number] 07/25/2025 12:15 PM EST Appointment [facility] CARDIOVASCULAR LAB [place] [address] [place] [address] 07/25/2025 1:45 PM EST Appointment [facility] CARDI[facility]ASCULAR [facility] [place] [address] [place] [phone] 01/11/2026 9:30 AM EDT Office Visit [facility] PULMONARY & CRITICAL CARE MEDICINE [address] [place] [id number] Kaitlin Joiner, BAKED GOODS STOCK CLERK [address] [place] [address] documented as of this encounter Procedures Procedure Name Priority Date/Time Associated Diagnosis Comments XR CHEST PA AND LATERAL Routine 12/24/2017 10:46 AM EDT SOB (shortness of breath) documented in this encounter Results * XR Chest PA & Lateral (12/24/2017 10:46 AM EDT) Anatomical Region Laterality Modality Body, Chest N/A Radiographic Jami ging Mat Epps MD IMG DIAGNOSTIC JAMI GING ORDERABLES Final Result documented in this encounter Visit Diagnoses Not on filedocumented in this encounter Additional Health Concerns Infection Onset Date Last Indicated Resolved Time COVID Screen (preop/placement) 09/06/2020 09/06/2020 09/06/2020 8:36 AM EST COVID Screen (preop/placement) 09/06/2020 09/06/2020 09/06/2020 4:59 PM EST COVID (rule out) 11/08/2020 11/09/2020 11/15/2020 9:08 PM EDT COVID (rule out) 01/14/2022 01/14/2022 01/21/2022 9:08 PM EDT documented as of this encounter Care Teams Senior Javascript Engineer Relationship Specialty Start Date End Date Marc Rodriguez MD [address] [facility] [address] [place] [id number] PCP - General Adolescent Medicine 12/08/16 documented as of this encounter
--- OUTSIDE RECORDS SUMMARY | 2018-08-16 10:42 | XMS_ITS | Encounter Summary ---
[facility] [address] [place] [address] Care Team Providers Care Olericulturist Name Role Phone Marc Rodriguez MD Primary Care Provider [phone] Encounter Details Date Type Department Care Team (Late Contact Info) Description 08/16/2018 10:42 AM EST Hospital Encounter [facility] PULMONARY & CRITICAL CARE MEDICINE [address] [place] [phone] Social History Tobacco Use Types Packs/Day Years [...] Info) Description 07/25/2025 9:00 AM EST Appointment [facility] NONINVASIVE LAB [place] [address] [place] [address] 07/25/2025 12:15 PM EST Appointment [facility] CARDIOVASCULAR LAB [place] [address] [place] [address] 07/25/2025 1:45 PM EST Appointment [facility] CARDIOVASCULAR LAB [place] [address] [facility] [address] [place] [address] 01/11/2026 9:30 AM EDT Office Visit [facility] PULMONARY & CRITICAL CARE MEDICINE [address] [place] [phone] Kaitlin Joiner, PAIRER INSPECTOR [address] [place] [address] documented as of this encounter Procedures Procedure [...] documented as of this encounter Care Teams Olericulturist Relationship Specialty Start Date End Date Marc Rodriguez MD [address] [facility] [address] [place] [id number] PCP - General Adolescent Medicine 12/08/16 documented as of this encounter
--- OUTSIDE RECORDS SUMMARY | 2020-11-12 07:42 | XMS_ITS | Encounter Summary ---
[facility] Address [address] [place] [address] Care Team Providers Care Rail Car Repairman Name Role Phone Marc Rodriguez MD Primary Care Provider [phone] Encounter Details Date Type Department Care Team (Late Contact Info) Description 11/12/2020 8:42 AM EDT Hospital Encounter [facility] PULMONARY & CRITICAL CARE MEDICINE [address] [place] [phone] Social History Tobacco Use Types Packs/Day Years [...] Care Team (Late st Contact Info) Description 07/25/2025 9:00 AM EST Appointment [facility] [place] [address] [facility] [address] [place] [address] 07/25/2025 12:15 PM EST Appointment [facility] CARDIOVASCULAR LAB [place] [address] [place] [address] 07/25/2025 1:45 PM EST Appointment [facility] [place] [address] [facility] [address] [place] [address] 01/11/2026 9:30 AM EDT Office Visit [facility] PULMONARY & CRITICAL CARE MEDICINE [address] [place] [address] Kaitlin Joiner, DIALYSIS CHIEF EQUIPMENT TECHNICIAN [address] [place] [address] documented as of this encounter Procedures Procedure Name Priority Date/Time Associated Diagnosis Comments XR CHEST PA AND LATERAL Routine 11/12/2020 8:59 AM EDT Moderate persistent asthma, unspecified whether complicated documented in this encounter Results * XR Chest PA & Lateral (11/12/2020 8:59 AM EDT) Anatomical Region Laterality Modality Body, Chest N/A Radiographic Jami ging 11/12/2020 9:11 AM EDT Impressions 11/12/2020 6:51 PM EDT No acute cardiopulmonary process with bibasilar atelectasis and/or scarring similar to 2019 exam. E: 11/12/2020 This report was finalized on 11/12/2020 6:[address] Abel Ghotra. Narrative 11/12/2020 6:51 PM EDT EXAMINATION: XR CHEST PA AND LATERAL- INDICATION: J45.40-Moderate persistent asthma, uncomplicated. COMPARISON: Chest x-ray 08/16/2018. FINDINGS: Cardiac size borderline enlarged with bibasilar atelectatic changes and scarring similar to prior. No consolidation, pneumothorax or pleural effusion Procedure Note Abel Ghotra DO - 11/12/2020 EXAMINATION: XR CHEST PA AND LATERAL- INDICATION: J45.40-Moderate persistent asthma, uncomplicated. COMPARISON: Chest x-ray 08/16/2018. FINDINGS: Cardiac size borderline enlarged with bibasilar atelectatic changes and scarring similar to prior. No consolidation, pneumothorax or pleural effusion IMPRESSION: No acute cardiopulmonary process with bibasilar atelectasis and/or scarring similar to 2019 exam. E: 11/12/2020 This report was finalized on 11/12/2020 6:[address] Abel Ghotra. Kaitlin Joiner APRN IMG DIAGNOSTIC IMAGING ORDER JORDANA Final Result documented in this encounter Visit Diagnoses Not on filedocumented in this encounter Additional Health Concerns Infection Onset Date Last Indicated Resolved Time COVID (rule out) 11/08/2020 11/09/2020 11/15/2020 9:08 PM EDT COVID (rule out) 01/14/2022 01/14/2022 01/21/2022 9:08 PM EDT documented as of this encounter Care Teams Rail Car Repairman Relationship Specialty Start Date End Date Marc Rodriguez MD [facility] [address] [phone] PCP - General Adolescent Medicine 12/08/16 documented as of this encounter
--- OUTSIDE RECORDS SUMMARY | 2022-07-11 13:36 | XMS_ITS | Encounter Summary ---
[facility] Address [address] [place] [address] Care Team Providers Care Optomechanical Engineer Name Role Phone Marc Rodriguez MD Primary Care Provider [phone] Encounter Details Date Type Department Care Team (Late Contact Info) Description 07/11/2022 1:36 PM EST Hospital Encounter [facility] PULMONARY & CRITICAL CARE MEDICINE [address] [place] [address] Social History Tobacco Use Types Packs/Day Years [...] Info) Description 07/25/2025 9:00 AM EST Appointment [facility]IVE [facility] [place] [address] [place] [address] 07/25/2025 12:15 PM EST Appointment [facility]ARDIOVASCULAR [facility] [place] [address] [place] [address] 07/25/2025 1:45 PM EST Appointment [facility] [place] [address] [place] [address] 01/11/2026 9:30 AM EDT Office Visit [facility] PULMONARY & CRITICAL CARE MEDICINE [address] [place] [address] Kaitlin Joiner, MACHINIST APPRENTICE [address] [place] [address] documented as of this encounter Procedures Procedure [...] by Edgardo Cash MD. Kaitlin L Rhys MACHINIST APPRENTICE IMG DIAGNOSTIC IMAGING ORDER JORDANA Final Result documented in this encounter Visit Diagnoses Not on filedocumented in this encounter Care Teams Optomechanical Engineer Relationship Specialty Start Date End Date Marc Rodriguez MD [facility] [address] [place] [address] PCP - General Adolescent Medicine 12/08/16 documented as of this encounter
--- OUTSIDE RECORDS SUMMARY | 2022-08-27 08:46 | XMS_ITS | Encounter Summary ---
[facility] Address [address] [place] [address] Care Team Providers Care Preschool Aide Name Role Phone Marc Rodriguez MD Primary Care Provider [phone] Encounter Details Date Type Department Care Team (Late Contact Info) Description 08/27/2022 8:46 AM EST Hospital Encounter [facility] PULMONARY & CRITICAL CARE MEDICINE [address] [place] [address] Social History Tobacco Use Types Packs/Day Years [...] Info) Description 07/25/2025 9:00 AM EST Appointment [facility]INVASIVE [facility] [place] [address] [place] [address] 07/25/2025 12:15 PM EST Appointment [facility] CARDIOVASCULAR [facility] [place] [address] [place] [address] 07/25/2025 1:45 PM EST Appointment [facility] [place] [address] [place] [address] 01/11/2026 9:30 AM EDT Office Visit [facility] PULMONARY & CRITICAL CARE MEDICINE [address] [place] [address] Kaitlin Joiner, BREAKER UNIT ASSEMBLER [address] [place] [address] documented as of this encounter Procedures Procedure [...] Coleman 08/27/2022 1:30 PM EST Workstation ID: [id number] Narrative 08/27/2022 1:30 PM EST XR CHEST [...] Laogan 08/27/2022 1:30 PM EST Workstation ID: [id number] Kaitlin Joiner APRN IMG DIAGNOSTIC IMAGING ORDER JORDANA Final Result documented in this encounter Visit Diagnoses Not on filedocumented in this encounter Care Teams Preschool Aide Relationship Specialty Start Date End Date Marc Rodriguez MD [facility] [address] [facility] [place] [address] PCP - General Adolescent Medicine 12/08/16 documented as of this encounter
--- OUTSIDE RECORDS SUMMARY | 2024-12-30 08:04 | XMS_ITS | Encounter Summary ---
Author Organization [facility] Address [address] [place] [address] Care Team Providers Care Hvac Design Mechanical Engineer Name Role Phone Marc Rodriguez MD Primary Care Provider [phone] Encounter Details Date Type Department Care Team (Late Contact Info) Description 12/30/2024 9:04 AM EDT Hospital Encounter [facility] PULMONARY & CRITICAL CARE MEDICINE [address] [place] [phone] Social History Tobacco Use Types Packs/Day Years [...] Info) Description 07/25/2025 9:00 AM EST Appointment [facility] [place] [address] [facility] [address] [place] [address] 07/25/2025 12:15 PM EST Appointment [facility] [place] [address] [facility] [address] [place] [address] 07/25/2025 1:45 PM EST Appointment [facility] [place] [address] [facility] [address] [place] [address] 01/11/2026 9:30 AM EDT Office Visit [facility] PULMONARY & CRITICAL CARE MEDICINE [address] [facility] [place] [address] Kaitlin Joiner APRN [address] [place] [address] documented as of this encounter Procedures Procedure [...] MD 12/30/2024 9:27 AM EDT Workstation ID: [id number] Narrative 12/30/2024 9:27 AM EDT XR CHEST [...] MD 12/30/2024 9:27 AM EDT Workstation ID: [id number] Kaitlin Joiner APRN IMG DIAGNOSTIC IMAGING ORDER JORDANA Final Result documented in this encounter Visit Diagnoses Not on filedocumented in this encounter Care Teams Hvac Design Mechanical Engineer Relationship Specialty Start Date End Date Marc Rodriguez MD [address] [facility] [address] [facility] [address] PCP - General Adolescent Medicine 12/08/16 documented as of this encounter
--- OUTSIDE RECORDS SUMMARY | 2025-05-25 13:10 | XMS_ITS | Encounter Summary ---
Author Organization Healthcare Address [address] [place] [address] Care Team Providers Care Marketing Financial Analyst Name Role Phone Marc Rodriguez MD Primary Care Provider [phone] Edgardo Zuñiga MD Unavailable [phone] Giulia Briggs Unavailable [phone] Edgardo Zuñiga MD Unavailable [phone] Esther Mathew Unavailable [phone] Reason for Referral * Consultation (Routine) - Closed Specialty Diagnoses / Procedures Referred By Roberto conrad Referred To Contact Neurology Diagnoses Weakness Esther Mathew PA [address] [address] Phone: tel: fax: Referral ID Status Reason Start Date Expiration Date V isits Requested Visits Authorized [id number] Closed Specialty Services Required 05/25/2025 11/24/2026 1 1 Scheduling Instructions Neuromuscular * Imaging (Routine) - Pending Review Specialty Diagnoses / Procedures Referred By Roberto conrad Referred To Contact Radiology Diagnoses Weakness Procedures MR Head wo IV Contrast Esther Mathew PA [id number] [place] [address] Phone: tel: fax: Referral ID Status Reason Start Date Expiration Date V isits Requested Visits Authorized [id number] Pending Review 05/25/2025 11/24/2026 1 1 Encounter Details Date Type Department Care Team (Late st Contact Info) Description 05/25/2025 2:10 PM EDT Office Visit [facility] [address] [place] [address] Esther Mathew PA [address] [place] [address] Weakness (Primary Dx) Social History Tobacco Use Types Packs/Day Years Used Date Smoking Tobacco: Never Passive Smoke Exposure: Past Smokeless Tobacco: Never Tobacco Cessation:Counseling Given: Not [...] place to sleep or slept in a nursing home (including now)? No 05/13/2024 PHQ-9 Answer [...] Sign Reading Time Taken Comments Blood Pressure 116/72 05/25/2025 2:03 PM EDT Pulse 67 05/25/2025 2:03 PM EDT Temperature - - Respiratory Rate - - Oxygen Saturation 96% 05/25/2025 2:03 PM EDT Inhaled Oxygen Concentration - - Weight 78 kg (171 lb 15.3 oz) 05/25/2025 2:03 PM EDT Height 170.2 cm (5' 7 ) 05/25/2025 2:03 PM EDT Body Mass Index 26.93 05/25/2025 2:03 PM EDT documented in this encounter Miscellaneous Notes * Progress Notes - Esther Mathew PA - 05/25/2025 2:10 PM EDT CC: Cognitive change HPI: Ms. Frank is a 69-year-old female we see for follow-up for mild cognitive impairment and headaches. Her last visit was September of 2024. Kokmen was 34. She continued the following medications: Lamictal 100 mg twice a day Cymbalta 60 mg twice a day Aricept 23 mg daily Namenda 10 mg twice a day Emgality injected once monthly Ubrelvy as needed Today she presents to clinic with her who helps with history. Her memory and cognition remain about the same. They have seen some improvements over the last few years but she does continue to have some difficulty with her short-term memory. She lives at home with her . She is independent in her activities of daily living. Her manages medications and finances and she has not drive. The migraine headaches are well controlled having about 1-2 per month that have a great response toUbrelvy. Her biggest concern is that she has had decline in her mobility, coordination and more muscle weakness since her back surgery this past spring. She has been working in physical therapy since November and has not seen much improvement. She has weakness in her extremities as well as her core. She stateswhen she moves her head her entire body will go in that direction. ROS: Listed in HPI. Otherwise negative. Physical Exam: Kokmen=, she missed 1 on attention, 1 on calculation, 1 on construction, 1 on information and 3 on recall and did not benefit from closed. Cranial nerves 2-12 are intact however abnormal movement of her head with extraocular motility. Significant weakness in both upper and lower extremities. Finger taping, hand fisting, pronation/supination were slightly abnormal. Heel taps were difficult due to the weakness. Coordination as a measure of cerebellar function including the finger to nose task was abnormal. Assessment: Vascular MCI, Migraine, proximal and distal muscle weakness Discussion/Plan: Ms. Frank is a 69-year-old female we see for follow-up for vascular mild cognitive impairment andmigraine. Her cognition is stable and her migraine headaches are well controlled. Concerning is this new onset of weakness. This has been progressive since her back surgery in November. I did also note therapy or fines on her physical exam. I have placed an order for an MRI of her brain. I have also placed a referral to neuromuscular clinic. Medications we prescribed are as follows: Lamictal 100 mg twice a day Aricept 23 mg daily Namenda 10 mg twice a day Emgality injected once monthly Ubrelvy as needed To prepare for this visit I did review previous notes. Follow-up after tests and consults. This was a 50, and time with reviewing of her history and previous documents and test results, discussion, examination, plan of care and documentation. documented in this encounter Plan of Treatment Upcoming Encounters Date Type Department Care Team (Late st Contact Info) Description 08/23/2025 11:35 AM EST Appointment [facility] [address] [place] [address] 09/11/2025 11:50 AM EST Office Visit [facility] at [facility] [address] [place] [address] Suzan Galindo DO [address] [place] [address] 03/07/2026 9:20 AM EDT Office Visit [facility] [address] [place] [address] Edgardo Zuñiga MD [address] [place] [address] Scheduled Orders Name Type Priority Associated Diagnoses Orde r Schedule MR Head wo IV Contrast Imaging Routine Weakness Expected: 05/25/2025 (Approximate), Expires: 11/26/2026 Scheduled Referrals Name Type Priority Associated Diagnoses Order Schedule Ambulatory referral to Neurology Outpatient Referral Routine Weakness Expected: 05/25/2025 (Approximate), Expires: 11/23/2026 documented as of this encounter Visit Diagnoses Diagnosis Weakness- Primary Other malaise and fatigue documented in this encounter Additional Health Concerns Assessment Noted Time PHQ-9 Depression Total Score: 0 07/05/20 10:01 AM EST A fall risk assessment has been complete d for the patient 05/25/2025 2:13 PM EDT A Body Mass Index follow-up plan has been documented for the patient 05/25/2025 3:01 PM EDT documented as of this encounter Care Teams Marketing Financial Analyst Relationship Specialty Start Date End Date Marc Rodriguez MD [address] [place], [place] [address] PCP - General 12/14/20 Edgardo Zuñiga MD [address] [place] [address] Surgeon Neurosurgery 03/04/21 Giulia Briggs PA [address] [place] [address] Physician Wall Man Neurosurgery 07/03/21 Edgardo Zuñiga MD [address] [place] [address] Surgeon Neurosurgery 09/16/21 Esther Mathew PA [address] [place] [address] Physician Wall Man Neurology 11/19/22 documented as of this encounter
--- OUTSIDE RECORDS SUMMARY | 2025-06-12 13:00 | XMS_ITS | Encounter Summary ---
Author Organization Healthcare Address [address] [place] [address] Care Team Providers Care Blasting Machine Operator Name Role Phone Marc Rodriguez MD Primary Care Provider [phone] Edgardo Zuñiga MD Unavailable [phone] Giulia Briggs Unavailable [phone] Edgardo Zuñiga MD Unavailable [phone] Esther Mathew Unavailable [phone] Reason for Referral * Other Medical (Routine) - Closed Specialty Diagnoses / Procedures Referred By Roberto conrad Referred To Contact Neurology Diagnoses Sensory neuropathy Meralgia paresthetica of right side Procedures EMG / Nerve Conduction Study Mook Martinez MD [address] [address] Phone: tel: fax: Referral ID Status Reason Start Date Expiration Date V isits Requested Visits Authorized [id number] Closed Specialty Services Required 06/12/2025 12/12/2026 1 1 Reason for Visit * Consultation (Routine) - Closed Specialty Diagnoses / Procedures Referred By Roberto conrad Referred To Contact Neurology Diagnoses Weakness Esther Mathew PA [id number] [place] [address] Phone: tel: fax: Referral ID Status Reason Start Date Expiration Date V isits Requested Visits Authorized [id number] Closed Specialty Services Required 05/25/2025 11/24/2026 1 1 Encounter Details Date Type Department Care Team (Late st Contact Info) Description 06/12/2025 1:00 PM EST Office Visit [place] [facility] [address] [place] [address] Mook Martinez MD [address] [place] [address] Sensory neuropathy (Primary Dx); Meralgia paresthetica of right side Social History Tobacco Use Types Packs/Day Years Used Date Smoking Tobacco: Never Passive Smoke Exposure: Past Smokeless Tobacco: Never Alcohol Use Standard Drinks/Week [...] Sign Reading Time Taken Comments Blood Pressure 142/84 06/12/2025 12:44 PM EST Pulse 55 06/12/2025 12:44 PM EST Temperature - - Respiratory Rate - - Oxygen Saturation 95% 06/12/2025 12:44 PM EST Inhaled Oxygen Concentration - - Weight 79.4 kg (175 lb) 06/12/2025 12:44 PM EST Height 170.2 cm (5' 7 ) 06/12/2025 12:44 PM EST Body Mass Index 27.41 06/12/2025 12:44 PM EST documented in this encounter Miscellaneous Notes * Progress Notes - Moko Martinez MD - 06/12/2025 1:00 PM EST 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 He was seen by Dr. Lopez in June 2024. She is considered to have frontotemporal dementia. Her current problem is that of imbalance. She relates that she has an electric pain like sensation in her lower extremities distallyin his symmetrical pattern. She describes sensory disturbance starts distally in the lower extremities and radiates upward into both of the lower extremities. Does not appear to be a radicular pattern but rather it appears that she is trying to describe more of a stocking-like sensation. The description is reminiscent of hyperpathia in that she does not want any contact with people touching her. She has some distal lower extremity edema. She denies bladder or bowel dysfunction. She had an EMG performed May 23 2022 soon which demonstrated chronic bilateral L5-S1 radiculopathies without acute changes. On examination she was cooperative. She was seated in a wheelchair. Cranial nerve examination showed symmetrical facial movements. Her eyes were conjugate to ocular pursuit. Vertical gaze appeared tiarra normal. She did not develop ptosis with sustained upgaze. There was no dysarthria. She did not have tongue an ear fasciculations. Neck flexion and neck extension power was both normal. Power in the extremities appeared to be normal. She did not develop exertional muscle cramping. I did not observe prominent muscle atrophy. The sensory examination was difficult. It appears that perception of conscious light touch (Kleenextissue) was normal in the lower and upper extremities. He had some dependent edema bilaterally. Sheseemed to have more of a startle response than actual hyperpathia. However there was discomfort with repetitive pinprick stimulation. It also appeared that she may have sensory loss on the right sidein the distribution right lateral femoral cutaneous nerve (meralgia paresthetica). Assessment It appears that she may have a small fiber neuropathy as well as superimposed writes meralgia paresthetica. The discomfort that she has appears to impair her ambulation more than weakness. These findings will need to be reconfirmed with a follow-up visit. Recommendations 1. We need a repeat EMG nerve conduction study. 2. We may need injection therapy this is a therapeutic trial for meralgia paresthetica to determinethe contribution of this factor to her poor ambulation 3. He has an extensive list of medications this point I would be hesitant to initiate any new therapy. However in the future we may be able to embark on a therapeutic trial with perhaps carbamazepine. 4. we may also need a skin biopsy sustained for intradermal small fibers documented in this encounter Plan of Treatment Upcoming Encounters Date Type Department Care Team (Late st Contact Info) Description 08/23/2025 11:35 AM EST Appointment [facility] [address] [place] [id number] 09/11/2025 11:50 AM EST Office Visit [facility] Medicine & [facility] at [facility] [address] [place] [address] Suzan Galindo DO [address] [place] [address] 03/07/2026 9:20 AM EDT Office [facility] [address] [place] [address] Edgardo Zuñiga MD [address] [place] [address] documented as of this encounter Results * EMG / Nerve Conduction Study (07/06/2025 1:00 PM EST) Anatomical Region Laterality Modality Other Narrative 07/06/2025 1:00 PM EST Marquez Brandon MD 07/06/2025 5:00 PM EMG / Nerve Conduction Study Performed by: Marquez Brandon MD Authorized by: Mook Martinez MD Mook Martinez MD NEUROLOGY ORDERABLES Final Result documented in this encounter Visit Diagnoses Diagnosis Sensory neuropathy- Primary Unspecified hereditary and idiopathic peripheral neuropathy Meralgia paresthetica of right side Sensory neuropathy Unspecified hereditary and idiopathic peripheral neuropathy Meralgia paresthetica of right side documented in this encounter Additional Health Concerns Assessment Noted Time PHQ-9 Depression Total Score: 0 07/05/20 24 10:01 AM EST A fall risk assessment has been complete d for the patient 06/12/2025 12:52 PM EST A Body Mass Index follow-up plan has been documented for the patient 06/13/2025 12:17 PM EST documented as of this encounter Care Teams Blasting Machine Operator Relationship Specialty Start Date End Date Marc Rodriguez MD [address] [place] [address] PCP - General 12/14/20 Edgardo Zuñiga MD [address] [place] [address] Surgeon Neurosurgery 03/04/21 Giulia Briggs PA [address] [place] [address] Physician Set Up And Lay Out Inspector Neurosurgery 07/03/21 Edgardo Zuñiga MD [address] [place] [address] Surgeon Neurosurgery 09/16/21 Esther Mathew PA [address] [place] [address] Physician Set Up And Lay Out Inspector Neurology 11/19/22 documented as of this encounter
--- OUTSIDE RECORDS SUMMARY | 2025-06-19 11:45 | XMS_ITS | Encounter Summary ---
[facility] Address [address] [place] [address] Care Team Providers Care Door Furring Installer Name Role Phone Marc Rodriguez MD Primary Care Provider [phone] Reason for Referral * Occupational Therapy (Routine) - Authorized Specialty Diagnoses / Procedures Referred By Contact Referred To Contact Occupational Therapy Diagnoses Chest pressure Dyspnea on exertion Primary hypertension Hyperlipidemia LDL goal <100 Chronic venous insufficiency of lower extremity Lymphedema Procedures TX OFFICE/OUTPATIENT NEW MODERATE MDM 45 MINUTES Jimmy Duncan MD [address] [facility] [address] [place] [address] Phone: tel:[phone] fax:[phone] [facility] OUTPATIENT OCCUPATIONAL THERAPY [address] [place] [address] Phone: tel: fax: Referral ID Status Reason Start Date Expiration Date V isits Requested Visits Authorized [id number] Authorized 06/19/2025 09/18/2026 1 1 * Cardiac Stress Testing (Routine) - Authorized Specialty Diagnoses / Procedures Referred By Contac t Referred To Contact Cardiology Diagnoses Chest pressure Dyspnea on exertion Primary hypertension Hyperlipidemia LDL goal <100 Chronic venous insufficiency of lower extremity Lymphedema Procedures Stress Test With Myocardial Perfusion One Day CHG MYOCARDIAL SPECT SINGLE STUDY AT REST OR STRESS CHG MYOCARDIAL SPECT MULTIPLE STUDIES Jimmy Duncan MD [address] [place] [address] [address] [place] [address] Phone: tel: fax: [facility] CARDIOVASCULAR LAB [address] [address] Phone: tel: Referral ID Status Reason Start Date Expiration Date V isits Requested Visits Authorized [id number] Authorized 06/19/2025 09/18/2026 4 4 * Diagnostic Imaging (Routine) - Authorized Specialty Diagnoses / Procedures Referred By Contac t Referred To Contact Cardiology Diagnoses Chest pressure Dyspnea on exertion Primary hypertension Hyperlipidemia LDL goal <100 Chronic venous insufficiency of lower extremity Lymphedema Procedures Adult Transthoracic Echo Complete W/ Cont if Necessary Per Protocol TX ECHO TTHRC R-T 2D W/WOM-MODE COMPL SPEC&COLR D TX ECHO TRANSTHORC R-T 2D W/WO M-MODE REC F-UP/LMTD Jimmy Duncan MD [address] [place] [address] [address], [place] [address] Phone: tel: fax: [facility] CARDIOVASCULAR LAB [address] [address] Phone: tel: Referral ID Status Reason Start Date Expiration Date V isits Requested Visits Authorized [id number] Authorized 06/19/2025 09/18/2026 1 1 Reason for Visit * Reason Comments Hyperlipidemia Hypertension Encounter Details Date Type Department Care Team (Latest Contact Info) Description 06/19/2025 11:45 AM EST Office Visit [facility] CARDIOLOGY [address] [place] [address] [address], [place] [address] Jimmy Duncan MD [address] [place] [address] [address] [place] [address] Chest pressure (Primary Dx); Dyspnea on exertion; Primary hypertension; Hyperlipidemia LDL goal <100; Chronic venous insufficiency of lower extremity; Lymphedema Social History Tobacco Use Types Packs/Day Years [...] Sign Reading Time Taken Comments Blood Pressure 115/57 06/19/2025 12:04 PM EST Pulse 56 06/19/2025 12:04 PM EST Temperature - - Respiratory Rate - - Oxygen Saturation - - Inhaled Oxygen Concentration - - Weight 76.3 kg (168 lb 3.2 oz) 06/19/2025 12:04 PM EST Height 170.2 cm (5' 7 ) 06/19/2025 12:04 PM EST Body Mass Index 26.34 06/19/2025 12:04 PM EST documented in this encounter Progress Notes * Jimmy Duncan MD - 06/19/2025 11:45 AM ESTAssociated Problem(s): Primary hypertension Hypertension is stable and controlled. Family MD started Norvasc 5 mg daily. Patient brought BP logand its average 130 systolic. Continue current treatment regimen. Dietary sodium restriction. Weight loss. Ambulatory blood pressure monitoring. Blood pressure will be reassessed in 6 months. Discussed with patient [employer] and [employer] provide detailed guidelines for accurate [...] than 130/80. * Jimmy Duncan MD - 06/19/2025 11:45 AM ESTAssociated Problem(s): Hyperlipidemia LDL goal <100 Lipid abnormalities [...] in detail. * Jimmy Duncan MD - 06/19/2025 11:45 AM ESTAssociated Problem(s): Chronic venous insufficiency of lower extremity [...] reducesswelling and edema in the lower extremities. Caution against diuretics based on leg swelling. * Jimmy Duncan MD - 06/19/2025 11:45 AM ESTAssociated Problem(s): Chest pressure Will do Radha scan to evaluate. * Jimmy Duncan MD - 06/19/2025 11:45 AM ESTAssociated Problem(s): Dyspnea on exertion Will do echocardiogram. * Jimmy Duncan MD - 06/19/2025 11:45 AM EST Images from the original note were not included. Cardiology Follow-Up Note Name: Sandie Frank : 1955 PCP: Marc Rodriguez MD Date: 03/13/2025 Department: [facility] CARDIOLOGY [address] [facility] [address] [facility] [address] Chief Complaint Patient presents with Hyperlipidemia Hypertension Problem list: 1. Hypertension benign essential 2D [...] insufficiency. Patient states she is doing well, chest gets tight at times has asthma and inhalers at times help, shortness of breath. Past Medical History: Diagnosis Date Adrenal insufficiency [...] Procedure Laterality Date APPENDECTOMY 1973 BREAST BIOPSY [id number] multiple CARDIAC CATHETERIZATION 03/13/2009 AE @ [facility]- [...] (Two) Times a Day., Disp: , Rfl: Breo Ellipta 100-25 MCG/ACT aerosol powder , Inhale 1 puff by mouth once daily, Disp: 60 each, Rfl:3 busPIRone (BUSPAR) 5 MG tablet, Take 1 tablet by mouth 3 (Three) Times a Day., Disp: , Rfl: calcium carbonate (TUMS) 500 MG chewable tablet, Chew 1 tablet Daily. 1250 MG QD, Disp: , Rfl: dantrolene (DANTRIUM) 25 MG capsule, Take 3 capsules by mouth 4 (Four) Times a Day., Disp: , Rfl: denosumab (PROLIA) 60 MG/ML [...] Nare route Daily., Disp: 18 mL, Rfl:11 furosemide (LASIX) 40 MG tablet, Take 1 tablet by mouth Daily., Disp: , Rfl: gabapentin (NEURONTIN) 100 MG capsule, Take 1 capsule by mouth 3 (Three) Times a Day. (Patient taking differently: Take 1 capsule by mouth Daily.), Disp: , Rfl: hydrocortisone (CORTEF) 5 MG tablet, Take 1 tablet by mouth 2 (Two) Times a Day., Disp: , Rfl: HYDROmorphone HCl (DILAUDID PO), Take by mouth. (Patient taking differently: Take by mouth. Pt has pain pump), Disp: , Rfl: lamoTRIgine (LaMICtal) 100 MG [...] mouth Daily As Needed., Disp: , Rfl: potassium chloride ER (K-TAB) 20 MEQ tablet controlled-release ER tablet, Take 1 tablet by mouth Daily., Disp: , Rfl: Probiotic Product (PROBIOTIC ADVANCED PO), Take by mouth Daily., Disp: , Rfl: QUEtiapine (SEROquel) 300 MG tablet, Take 1 tablet by mouth Every Night., Disp: , Rfl: rosuvastatin (CRESTOR) 20 MG tablet, Take 1 tablet by mouth once daily, Disp: 90 tablet, Rfl: 1 simethicone (MYLICON) 80 MG chewable tablet, Chew [...] IF NEEDED. MAX 200MG IN 24 HOURS (Patient taking differently: Take 1 tablet bymouth As Needed.), Disp: , Rfl: Objective Vital Signs: BP 115/57 (BP Location: Left arm, Patient Position: Sitting) Pulse 56 Ht 170.2 cm (67 ) Wt 76.3 kg (168 lb 3.2 oz) BMI 26.34 kg/m?? Estimated body mass index is 26.34 kg/m?? as calculated from the following: Height as of this encounter: 170.2 cm (67 ). Weight as of this encounter: 76.3 kg (168 lb 3.2 oz). BMI is >= 30 and <35. (Class 1 Obesity). The following options were offered after discussion;: exercise counseling/recommendations Cardiovascular: PMI at left midclavicular line. Normal rate. Regular rhythm. Normal S1. Normal S2. Murmurs: There is no murmur. No gallop. No click. No rub. Pulses: Intact distal pulses. Edema: Peripheral edema absent. Data Review: Lab Results Component Value Date [...] less than 30 triglyceride 91. CBC okay. Labs06/15/25 BMP Ok except CO2 32 Assessment and Plan Assessment & Plan Chest pressure Will do Radha scan to evaluate. Dyspnea on exertion Will do echocardiogram. Primary hypertension Hypertension is stable and controlled. Family MD started Norvasc 5 mg daily. Patient brought BP logand its average 130 systolic. Continue current treatment regimen. Dietary sodium restriction. Weight loss. Ambulatory blood pressure monitoring. Blood pressure will be reassessed in 6 months. Discussed with patient [employer] and [employer] provide detailed guidelines for accurate [...] reducesswelling and edema in the lower extremities. Caution against diuretics based on leg swelling. Lymphedema Will refer to lymphatic therapy as lower extremity edema with mild redness is causing her to have lymphatic problems. Patient will benefit from compression device. Advised to continue current cardiac medications. Please notify of any issues. Discussed with the patient compliance with medical management and follow-up. Follow Up Return for Follow-up post-testing. Call if you have any significant symptoms or go to the [facility] Emergency room if possible. Jimmy Duncan MD, FAC,[facility]. [facility] Part of this note may be an electronic abalone fisherman/translation of spoken language to printed textusing the [employer] Valvesation System. documented in this encounter Plan of Treatment Upcoming Encounters Date Type Department Care Team (Late st Contact Info) Description 07/25/2025 9:00 AM EST Appointment [facility] NONINVASIVE LAB [place] [address] [facility] [address] [place] [address] 07/25/2025 12:15 PM EST Appointment [facility] CARDIOVASCULAR LAB [place] [address] [facility] [address] [place] [address] 07/25/2025 1:45 PM EST Appointment [facility] CARDIOVASCULAR LAB [place] [address] [facility] [address] [place] [address] 01/11/2026 9:30 AM EDT Office Visit [facility] PULMONARY & CRITICAL CARE MEDICINE [address] [facility] [address] Kaitlin Joiner, CIVIL ENGINEERING TEACHER [address] [place] [address] Scheduled Orders Name Type Priority Associated Diagnoses Orde r Schedule Adult Transthoracic Echo Complete W/ Cont if Necessary Per Protocol Echocardiography Routine Chest pressure Dyspnea on exertion Primary hypertension Hyperlipidemia LDL goal <100 Chronic venous insufficiency of lower extremity Lymphedema Expected: 07/19/2025, Expires: 06/19/2026 Stress Test With Myocardial Perfusion One Day Cardiac Services Routine Chest pressure Dyspnea on exertion Primary hypertension Hyperlipidemia LDL goal <100 Chronic venous insufficiency of lower extremity Lymphedema Expected: 07/19/2025, Expires: 06/19/2026 Scheduled Referrals Name Type Priority Associated Diagnoses Orde r Schedule Ambulatory Referral to Lymphedema Clinic Outpatient Referral Routine Chest pressure Dyspnea on exertion Primary hypertension Hyperlipidemia LDL goal <100 Chronic venous insufficiency of lower extremity Lymphedema Ordered: 06/19/2025 documented as of this encounter Visit Diagnoses Diagnosis Chest pressure- Primary Other chest pain Dyspnea on exertion Other dyspnea and respiratory abnormality Primary hypertension Unspecified essential hypertension Hyperlipidemia LDL goal <100 Other and unspecified hyperlipidemia Chronic venous insufficiency of lower extremity Lymphedema Other noninfectious lymphedema documented in this encounter Care Teams Door Furring Installer Relationship Specialty Start Date End Date Marc Rodriguez MD [address] [facility] [address] [place] [address] PCP - General Adolescent Medicine 12/08/16 documented as of this encounter
--- OUTSIDE RECORDS SUMMARY | 2025-06-26 10:00 | XMS_ITS | Encounter Summary ---
[facility] [address] [place] [address] Care Team Providers Care Dungeon Master Name Role Phone Marc Rodriguez MD Primary Care Provider [phone] Reason for Visit * Reason Comments Severe persistent asthma without complic ation Follow Up Shortness of Breath Cough Encounter Details Date Type Department Care Team (Late st Contact Info) Description 06/26/2025 10:00 AM EST Office Visit [facility] PULMONARY & CRITICAL CARE MEDICINE [address] [place] [address] Kaitlin Joiner, DISPLAY MANAGER [address] [place] [address] Severe persistent asthma without complication (Primary Dx); Chronic cough; Chronic allergic rhinitis Social History Tobacco Use Types Packs/Day Years [...] Sign Reading Time Taken Comments Blood Pressure 120/78 06/26/2025 9:19 AM EST Pulse 62 06/26/2025 9:19 AM EST Temperature 35.2 C (95.4 F) 06/26/2025 9:19 AM EST Respiratory Rate - - Oxygen Saturation 96% 06/26/2025 9:1 9 AM EST Room air at rest Inhaled Oxygen Concentration - - Weight 77.1 kg (170 lb) 06/26/2025 9:19 AM EST Height 170.2 cm (5' 7 ) 06/26/2025 9:19 AM EST Body Mass Index 26.63 06/26/2025 9:19 AM EST documented in this encounter Progress Notes * Prudence Peoples CRT - 06/26/2025 10:00 AM ESTAddended by: PRUDENCE PEOPLES on: 06/26/2025 03:36 PM Modules accepted: Orders * Kaitlin Joiner APRN - 06/26/2025 10:00 AM EST [facility] Pulmonary Follow up Chief Complaint Severe persistent asthma without complication (Follow Up), Shortness of Breath, and Cough Subjective Sandie Frank presents to [facility] PULMONARY & CRITICAL CARE MEDICINE for routine follow-up on her severe persistent asthma. She does have a chronic cough. She has follow-up with ENT as the past week for some vocal cord issues with her chronic cough. Her cough overall is actually improved. She does has a bit of throat clearing that does worsen at night. For her asthma she is on Breo, she has been on that for several years. She is also on Dupixent. Sheis notices significant improvement in her asthma symptoms with the Dupixent. She is having a bit of shortness of breath lately, and using her albuterol rescue inhaler a bit more than usual. Since she had back surgery back in March 2024 she has had issues with difficulty walking and generalized muscle weakness and deconditioning. She initially was in rehab for months and is still doing outpatient physical therapy. She is able to walk some with a walker and assistance at this time. She has been having worsening lower extremity edema, they feel like it is lymphedema related to heroverall weakness. She had pertussis in 2022 with significant cough and asthma exacerbation. Objective Vital Signs: BP 120/78 Pulse 62 Temp 95.4 ??F (35.2 ??C) (Temporal) Ht 170.2 cm (67 ) Wt 77.1 kg (170 lb) SpO2 96% Comment: Room air at rest BMI 26.63 kg/m?? Immunization History Administered Date(s) Administered Arexvy (RSV, Adults 60+ yrs) 08/13/2023 COVID-19 (MODERNA) 12YRS+ (SPIKEVAX) 07/15/2023 COVID-19 (MODERNA) 1st,2nd,3rd Dose Monovalent 09/16/2020, 10/14/2020, 06/19/2021, 12/19/2021 COVID-19 (MODERNA) Monovalent Original Booster 07/15/2021, 04/30/2022 Flu Vaccine Split Quad 05/24/2015 Fluzone >6mos 05/17/2015 Fluzone High-Dose 65+YRS 05/27/2019, 03/30/2020, 05/01/2023, 07/13/2024, 06/16/2025 Fluzone High-Dose 65+yrs 05/27/2019, 03/30/2020, 05/30/2021, 06/07/2022 Fluzone Quad >6mos (Multi-dose) 05/24/2015, 05/06/2017, 06/07/2018 Hepatitis A 07/19/2018, 02/17/2019 Influenza, Unspecified 06/03/2018, 05/05/2022 Pneumococcal Conjugate 13-Valent (PCV13) 03/25/2019 Pneumococcal Polysaccharide (PPSV23) 03/11/2022 Pneumococcal, Unspecified 03/10/2016 Shingrix 01/21/2023, 05/29/2023 Td (TDVAX) 10/07/1996 Tdap 09/19/2015, 12/09/2022 Physical Exam Vitals reviewed. Constitutional: Appearance: She is well-developed. HENT: Head: Normocephalic and atraumatic. Eyes: Pupils: Pupils are equal, round, and reactive to light. Cardiovascular: Rate and Rhythm: Normal rate and regular rhythm. Heart sounds: No murmur heard. Pulmonary: Effort: Pulmonary effort is normal. No respiratory distress. Breath sounds: Normal breath sounds. No wheezing or rales. Abdominal: General: Bowel sounds are normal. There is no distension. Palpations: Abdomen is soft. Musculoskeletal: General: Normal range of motion. Cervical back: Normal range of motion and neck supple. Skin: General: Skin is warm and dry. Findings: No erythema. Neurological: Mental Status: She is alert and oriented to person, place, and time. Psychiatric: Behavior: Behavior normal. Result Review : PFTs done in the office today: No significant changes with an FVC of 2.39, 78% predicted. Diagnoses and all orders for this visit: 1. Severe persistent asthma without complication (Primary) - budesonide-formoterol (SYMBICORT) 80-4.5 MCG/ACT inhaler; Inhale 2 puffs 2 (Two) Times a Day. Dispense: 1 each; Refill: 5 - albuterol sulfate HFA 108 (90 Base) MCG/ACT inhaler; Inhale 2 puffs Every 4 (Four) Hours As Needed for Wheezing. Dispense: 18 g; Refill: 5 2. Chronic cough 3. Chronic allergic rhinitis - montelukast (SINGULAIR) 10 MG tablet; Take 1 tablet by mouth every night at bedtime. Dispense: 90tablet; Refill: 3 Sarai does have severe persistent asthma. She is done very well on the Dupixent. She has been havingsome worsening shortness of breath, likely related both to her asthma as well as overall deconditioning from her debility since she had surgery last year. She has been on Breo for quite a while, we discussed switching it to Symbicort for well and see if it makes any difference in her shortness of breath. Continue on her albuterol as needed. Her cough seems to be about at baseline, if not a bit better than it has been in the past. She doeshave some upper airway irritation it sounds like may be related to some seasonal allergies. Continue on her montelukast, antihistamine and nasal sprays as needed. She can always follow back up with ENT for her vocal cord issues if she feels like it is persistentor worsening. Routine follow-up here in the office in 6 months, or sooner with any acute issues. Follow Up Return in about 6 months (around 12/24/2025). Patient was given instructions and counseling regarding her condition or for health maintenance advice. Please see specific information pulled into the AVS if appropriate. Moderate level of Medical Decision Making complexity based on 2 or more chronic stable illnesses and prescription drug management. Kaitlin Joiner APRN, ACNP [facility] Pulmonary Critical Care Medicine documented in this encounter Plan of Treatment Upcoming Encounters Date Type Department Care Team (Late st Contact Info) Description 07/25/2025 9:00 AM EST Appointment [facility]VASIVE LAB [place] [address] [place] [address] 07/25/2025 12:15 PM EST Appointment [facility] CARDIOVASCULAR LAB [place] [address] [facility] [address] [place] [address] 07/25/2025 1:45 PM EST Appointment [facility]ARDI[facility]ASCULAR [facility] [place] [address] [facility] [address] [place] [address] 01/11/2026 9:30 AM EDT Office Visit [facility] PULMONARY & CRITICAL CARE MEDICINE [address] [place] [address] Kaitlin Joiner APRN [address] [place] [address] documented as of this encounter Procedures Procedure Name Priority Date/Time Associated Diagnosis Comments BREATHING CAPACITY TEST Routine 06/26/2025 3:35 PM EST Severe persistent asthma without complication documented in this encounter Results * Breathing Capacity Test (06/26/2025 3:35 PM EST) us Kaitlin Joiner APRN PFT ORDERABLES Final Result documented in this encounter Visit Diagnoses Diagnosis Severe persistent asthma without complication- Primary Chronic cough Cough Chronic allergic rhinitis documented in this encounter Care Teams Dungeon Master Relationship Specialty Start Date End Date Marc Rodriguez MD [address] [facility] [address] [facility] [address] PCP - General Adolescent Medicine 12/08/16 documented as of this encounter
--- OUTSIDE RECORDS SUMMARY | 2025-07-06 13:00 | XMS_ITS | Encounter Summary ---
Author Organization Healthcare Address [address] [place] [address] Care Team Providers Care Expanding Machine Operator Name Role Phone Marc Rodriguez MD Primary Care Provider [phone] Edgardo Zuñiga MD Unavailable [phone] Giulia Briggs Unavailable [phone] Edgardo Zuñiga MD Unavailable [phone] Esther Mathew Unavailable [phone] Reason for Visit * Other Medical (Routine) - Closed Specialty Diagnoses / Procedures Referred By Roberto conrad Referred To Contact Neurology Diagnoses Sensory neuropathy Meralgia paresthetica of right side Procedures EMG / Nerve Conduction Study Mook Martinez MD [id number] [place] [address] Phone: tel: fax: Referral ID Status Reason Start Date Expiration Date V isits Requested Visits Authorized [id number] Closed Specialty Services Required 06/12/2025 12/12/2026 1 1 Encounter Details Date Type Department Care Team (Latest Contact Info) Description 07/06/2025 1:00 PM EST Procedure [facility] [address] [place] [address] Marquez Brandon MD [id number] [place] [address] Sensory neuropathy; Meralgia paresthetica of right side Social History [...] Recorded In the past 12 months has [employer], gas, oil, or water company threatened to shut off services in your home? No 05/13/2024 Comments No Sex and Gender Information Value Date Recorded Sex Assigned at Female 07/31/2021 6:10 AM EST Legal Sex Female 8:40 PM EDT Gender Identity Female 07/31/2021 6:10 AM EST Sexual Orientation Not on file documented as of this encounter Miscellaneous Notes * Progress Notes - Marquez Brandon MD - 07/06/2025 1:00 PM ESTAssociated Order(s): EMG / Nerve Conduction Study Pre-Procedure Diagnose(s): Sensory neuropathy; Meralgia paresthetica of right side Post-Procedure Diagnose(s): Sensory neuropathy; Meralgia paresthetica of right side Images from the original note were not included. Encounter Diagnoses Name Primary? Sensory neuropathy Meralgia paresthetica of right side EMG / Nerve Conduction Study Performed by: Marquez Brandon MD Authorized by: Mook Martinez MD [facility] Neuromuscular Medicine Program Electromyography Laboratory Report Date of Service: 07/06/2025 Patient Name: Sandie Frank MRN: ?[id number] ??Date of : 1955 ? Clinical impression: 69 y.o. female presents for evaluation of paresthesias and weakness in bilateral lower extremities and back pain. She has had paresthesias in her lower extremities for over 20 years. She has had long standing lower back pain and has undergone 3 lower back surgeries and pain pump placement in past. Over the years, she has noted a progressive decline in her lower extremity stren gth and worsening of paresthesias and lower back pain. Specific questions: Assess for neuropathy, lumbosacral radiculopathy. Technical summary: Nerve conduction studies were done in the standard fashion utilizing published Jalloh technique and the following normative data. Needle electromyography was done via standard concentric needle technique (Elier 2013 4th ed, [employer]). NCS: EMG: Side Muscle IA Fibs/PSW Fasc Amp Dur PPP Recrt Comment Right Tibialis anterior Nml None None 2+ Nml 1+ Moderately reduced Vastus lateralis Nml None None 2+ 1+ 2+ Moderately reduced Medial Gastroc Nml None None Nml Nml 1+ Nml Side Muscle IA Fibs/PSW Fasc Amp Dur PPP Recrt Comment Left Tibialis anterior Nml None None 2+ Nml 1+ Moderately reduced Vastus lateralis Nml None None 2+ Nml 1+ Moderately reduced Medial Gastroc Nml None None Nml 1+ Nml Summary: NCS: Motor and sensory nerve conduction studies are notable for: Bilateral sural and lateral femoral cutaneous sensory responses are unobtainable. Bilateral fibular and right tibial motor responses with markedly reduced CMAP amplitude. Right tibial motor response with mildly slow conduction velocity. EMG: Needle electromyography (EMG) of the selected muscles of the bilateral lower extremities is notable for: Chronic denervation and re-innervation changes noted in bilateral vastus lateralis, tibialis anterior and medial gastrocnemius muscles. Needle EMG of the paraspinal muscles was deferred due to history of prior L spine surgery. Interpretation: This is an abnormal study. 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 Superimposed, bilateral, chronic L4-S1 radiculopathy can not be excluded completely. No active denervation changes were noted in any of the tested muscles. Attending Statement: I was present throughout the procedure for this patient's EMG, and performed all significant portions including, but not limited to, data interpretation, needle electrode examination and report generation. Marquez Brandon MD Neuromuscular Medicine Program Department of Neurology [facility] Normal values: Sensory Nerve Distal Distance (cm) Segment Peak Latency (ms) Amplitude (uV) Velocity (m/s) Median (Orthodromic) 8 Palm - Wrist <2.2 >50 >50 Ulnar (Orthodromic) 8 Palm - Wrist <2.2 >15 >50 Radial 10 Forearm - Snuffbox <2.8 >19 >50 Sural 14 Posterior Leg - Foot <4.0 >6 >40 Superficial Peroneal 14 Lateral Leg - Foot <4.0 >6 >40 Motor Nerve Distal Distance (cm) Distal Latency (ms) Amplitude (mV) Velocity (m/s) F Latency (ms) Median - APB 7 <4.6 >4 >50 <31 Ulnar - ADM 7 <3.5 >6 >50 <32 Peroneal - EDB 8 <7.0 >2 >40 <57 Tibial - AHB 8 <6.0 >4 >40 <57 documented in this encounter Plan of Treatment Upcoming Encounters Date Type Department Care Team (Late st Contact Info) Description 08/23/2025 11:35 AM EST Appointment [facility] [address] [place] [address] 09/11/2025 11:50 AM EST Office Visit [facility] [address] [place] [address] Suzan Galindo DO [address] [place] [address] 03/07/2026 9:20 AM EDT [facility] [address] [place] [address] Edgardo Zuñiga MD [address] [place] [address] documented as of this encounter Procedures Procedure Name Priority Date/Time Associated Diagnosis Comments PBPROC Routine 07/06/2025 1:00 PM EST Sensory neuropathy Meralgia paresthetica of right side documented in this encounter Results * EMG / Nerve Conduction Study (07/06/2025 1:00 PM EST) Anatomical Region Laterality Modality Other Narrative 07/06/2025 1:00 PM EST Marquez Brandon MD 07/06/2025 5:00 PM EMG / Nerve Conduction Study Performed by: Marquez Brandon MD Authorized by: Mook Martinez MD Mook Martinez MD NEUROLOGY ORDERABLES Final Result documented in this encounter Visit Diagnoses Diagnosis Sensory neuropathy Unspecified hereditary and idiopathic peripheral neuropathy Meralgia paresthetica of right side documented in this encounter Additional Health Concerns Assessment Noted Time PHQ-9 Depression Total Score: 0 07/05/20 24 10:01 AM EST A fall risk assessment has been complete d for the patient 06/12/2025 12:52 PM EST A Body Mass Index follow-up plan has been documented for the patient 07/06/2025 5:00 PM EST documented as of this encounter Care Teams Expanding Machine Operator Relationship Specialty Start Date End Date Marc Rodriguez MD [address] [place] [address] PCP - General 12/14/20 Edgardo Zuñiga MD [address] [place] [address] Surgeon Neurosurgery 03/04/21 Giulia Briggs PA [address] [place] [address] Physician Music Education Director Neurosurgery 07/03/21 Edgardo Zuñiga MD [address] [place] [address] Surgeon Neurosurgery 09/16/21 Esther Mathew PA [address] [place] [address] Physician Music Education Director Neurology 11/19/22 documented as of this encounter
--- NOTE | 2025-07-20 | XR_ITS ---
FINAL REPORT CLINICAL HISTORY: ACUTE PAIN RT SHOULDER COMPARISON: 07/06/2023 FINDINGS: 3 views of the right shoulder were obtained. Changes of right reverse shoulder arthroplasty are once again noted. There is no fracture or dislocation. There is a lucency at the margin of the humeral stem, which is unchanged since the prior exam of 2022. Soft tissues are unremarkable. IMPRESSION: Changes of right reverse shoulder arthroplasty once again noted. Lucency of the margin of the humeral stem, unchanged from the prior exam of 2022. Reviewed, Interpreted and Dictated by Jacquelyn Hurtado MD Transcribed by Lucero Reddy Authenticated and [facility]
--- OUTSIDE RECORDS SUMMARY | 2025-07-20 11:09 | XMS_ITS | Encounter Summary ---
Author Organization [employer] ([place], [place], [place], [place], [place]) Address [address] [place] [address] Care Team Providers Care Payroll Supervisor Name Role Phone Unavailable Primary Care Provider Unavailabl e Encounter Details Date Type Department Care Team (Late st Contact Info) Description 07/25/[address] [facility] Family Medicine [address] [place] [address] ProviderSonia MD [address] [place], [place] [id number] Social History Tobacco Use Types Packs/Day Years Used Date Smoking Tobacco: Never Assessed Comments Unknown Sex and Gender Information Value Date Recorded Sex Assigned at Not on file Legal Sex Female 1:42 PM CDT Gender Identity Not on file Sexual Orientation Not on file documented as of this encounter Miscellaneous Notes * Cerner Conversion Note - Sonia ProviderMD - 07/25/2019 5:00 PM .NET DEVELOPER Chart Check - Review Order Profile Entered On: 07/25/2019 16:29 EST Performed On: 07/25/2019 17:00 EST by Aimee Willis RN Chart Check Powerplans Initiated/Discontinued as Appropriate : Yes All Active Orders Reviewed : Yes Aimee Willis RN - 07/25/2019 16:29 EST Electronically signed by Raman [id number] Conversion Retail Service Technician Cerner at 11/19/2022 8:46 PM CDT documented in this encounter Plan of Treatment Not on file documented as of this encounter Visit Diagnoses Not on filedocumented in this encounter
--- OUTSIDE RECORDS SUMMARY | 2025-07-20 11:09 | XMS_ITS | Encounter Summary ---
Author Organization [employer] ([place], [place], [place], [place], [place]) Address [address] [place] [address] Care Team Providers Care Audio Video Repairer Name Role Phone Unavailable Primary Care Provider Unavailabl e Encounter Details Date Type Department Care Team (Late st Contact Info) Description 07/25/2019 Transcribed Document [facility] Radiology [address] [place] [address] Travis Schwartz MD [address] [place], [place] [id number] Social History Tobacco Use Types Packs/Day Years [...] Order- Vancomycin 1,500 Mg IV X 1 CDS/Commercial Floor Covering Installer Signature: Krystyna Gonzalez RN Phone #: [phone] This is a permanent part of the Medical Record Q54 2019 [facility] Updated: documented in this encounter Plan of Treatment Not on file documented as of this encounter Visit Diagnoses Not on filedocumented in this encounter
--- OUTSIDE RECORDS SUMMARY | 2025-07-20 11:09 | XMS_ITS | Clinical Summary ---
Author Organization [facility] Address [address] [place] [address] Phone Care Team Providers Care Chemical Cell Changer Name Role Phone TERRELL PHIPPS, LEOPOLDO Unavailable [phone] HARRIETT PHIPPS, EFFIE Koenig Primary Care Provider [phone] Yareli PHIPPS, Brian Shelton Unavailable [phone] Reason for Visit and Chief Complaint The Chief Complaint is: right hip pain Problems Includes: Problems addressed during this encounter and other active Problems All Visits Onset Date Date of Diagnosis Resolved Date Provider Condition Status Joint Pain in Both Knees 11/07/2024 11/07/2024 Missael Avalos PA-C Active Last Documented On 5 1:43AM ; [facility] Joint Pain Hip Right 06/08/2019 06/08/2019 Violette Newton MD Active Last Documented On 5 1:39AM ; [facility] Joint Pain Shoulder Bilateral 08/20/2017 08/20/2017 Giancarlo Wood MD Active Last Documented On 5 1:39AM ; [facility] Joint Pain Shoulder 06/17/2017 06/17/2017 Amy Jimenez MD Active Last Documented On 5 1:39AM ; [facility] Right Forearm Bone Pain 01/09/2017 01/09/2017 Peace Jimenez MD Active Last Documented On 5 1:38AM ; [facility] Carpal Tunnel Syndrome 03/23/2015 03/23/2015 Hammad Downs MD Active Last Documented On 5 1:38AM ; [facility] Plan of Treatment Fall Risk Assessment: This [...] - Last Documented On 08/21/2022 8:00AM ; [facility], [facility] patient states she has been doing well [...] - Last Documented On 08/21/2022 8:00AM ; [facility], [facility] Pending Tests Order Diagnosis Results Due Ordering P rovider Therapy - Physical Therapy Knee 08/19/22 Missael Avalos PA-C Last Documented On 3 3:56PM ; [facility], [facility] Instructions to patient Instructions for patient to see pcp for bp and wt Last Documented On 3 2:49PM ; [facility], [facility] Lose weight Last Documented On 3 2:49PM ; [facility], [facility] Assessments Includes: Assessments from this encounter Findings right total hip arthroplasty late 2018 - Last Documented On 08/21/2022 8:00AM ; [facility] Right hip bursitis and gluteal tendinitis - Last Documented On 08/21/2022 8:00AM ; [facility] Instructions Includes: Instructions from this encounter Instructions to patient Instructions for patient to see pcp for bp and wt Last Documented On 3 2:49PM ; [facility] Lose weight Last Documented On 3 2:49PM ; [facility] Medical Equipment - Implanted Devices Includes: Current Devices No Medical Equipment Recorded Medications Includes: Medications discussed during this encounter and other current Medications Current Medications (continue as prescribed) QUEtiapine Fumarate 300 MG Oral Tablet 11/04/2024 Pr ovider: Diagnosis: Last Documented On 5 8:26AM By Kaylynn Philippe ; [facility] amLODIPine Besylate 5 MG Oral Tablet 11/04/2024 Prov ider: LEOPOLDO TEJADA MD Diagnosis: Last Documented On 5 8:26AM By Kaylynn Philippe ; [facility] Rosuvastatin Calcium 20 MG Oral Tablet 11/01/2024 Pr ovider: THOMPSON GOSS MD Diagnosis: Last Documented On 5 8:26AM By Kaylynn Philippe ; [facility] DULoxetine HCl 60 MG Oral Capsule Delayed Releas e Particles 10/28/2024 Provider: Diagnosis: Last Documented On 5 8:26AM By Kaylynn Philippe ; [facility], [facility] Donepezil HCl 23 MG Oral Tablet 10/25/2024 Provider: Esther Mathew PA-C Diagnosis: Last Documented On 5 8:26AM By Kaylynn Philippe ; [facility] Trulance 3 MG Oral Tablet 10/23/2024 Provider: YAKOV DIXON MD Diagnosis: Last Documented On 5 8:26AM By Kaylynn Philippe ; [facility] Memantine HCl 10 MG Oral Tablet 10/22/2024 Provider: Esther Mathew PA-C Diagnosis: Last Documented On 5 8:26AM By Kaylynn Philippe ; [facility] lamoTRIgine 100 MG Oral Tablet 10/22/2024 Provider: Esther Mathew PA-C Diagnosis: Last Documented On 5 8:26AM By Kaylynn Philippe ; [facility] Montelukast Sodium 10 MG Oral Tablet 10/18/2024 Prov ider: Diagnosis: Last Documented On 5 8:26AM By Kaylynn Philippe ; [facility] Nitrofurantoin Monohyd Macro 100 MG Oral Capsule 10/17/2024 Provider: Maggi zimmer APRN Diagnosis: Last Documented On 5 8:26AM By Kaylynn Philippe ; [facility] Levothyroxine Sodium 88 MCG Oral Tablet 10/14/2024 Tony parker: LEOPOLDO TEJADA MD Diagnosis: Last Documented On 5 8:26AM By Kaylynn Philippe ; [facility] Dantrolene Sodium 50 MG Oral Capsule 10/13/2024 Prov ider: Suzan Sanchez MD Diagnosis: Last Documented On 5 8:26AM By Kaylynn Philippe ; [facility] Emgality 120 MG/ML Subcutane ous Solution Auto-injector 10/10/2024 Provider: Esther Mathew PA-C Diagnosis: Last Documented On 5 8:26AM By Kaylynn Philippe ; [facility] Pantoprazole Sodium 40 MG Or al Tablet Delayed Release 10/07/2024 Provider: LEOPOLDO TEJADA MD Diagnosis: Last Documented On 5 8:26AM By Kaylynn Philippe ; [facility], [facility] busPIRone HCl 5 MG Oral Tablet 10/04/2024 Provider: Suzan Sanchez MD Diagnosis: Last Documented On 5 8:26AM By Kaylynn Philippe ; [facility], [facility] Linzess 72 MCG Oral Capsule 10/03/2024 Provider: Maggi Crawford APRN Diagnosis: Last Documented On 5 8:26AM By Kaylynn Philippe ; [facility], [facility] Hydrocortisone 5 MG Oral Tablet 09/29/2024 Provider: LEOPOLDO TEJADA MD Diagnosis: Last Documented On 5 8:26AM By Kaylynn Philippe ; [facility], [facility] Cefdinir 300 MG Oral Capsule 09/29/2024 Provider: Diagnosis: Last Documented On 5 8:26AM By Kaylynn Philippe ; [facility] Past Medications on file Zofran 4 MG Oral Tablet 07/20/2019 - 07/25/2019 Provid er: Patrick Newton MD Diagnosis: [id number] DO NOT FILL TILL 07/22/19 FOR SURGERY Last Documented On 9 12:44PM By Pat Oneil ; [facility] Colace 100 MG Oral Capsule 07/20/2019 - 10/18/2019 Provider: Patrick marsh MD Diagnosis: 1-2 tabs daily DO NOT FILL TILL 07/22/19 FOR SURGERY Last Documented On 9 12:44PM By Pat Oneil ; [facility] Neurontin 300 MG Oral Capsule 07/20/2019 - 10/18/2019 Provider: Patrick marsh MD Diagnosis: 1 every bedtime DO NOT ZEENAT L TILL 07/22/19 FOR SURGERY Last Documented On 9 12:34PM By Pat Oneil ; [facility] Dilaudid 2 MG Oral Tablet 07/20/2019 - 07/22/2019 Provider: Patrick marsh MD Diagnosis: 1-2 po q6h prn pain (RESCUE PAIN)DO NOT FILL TILL 07/22/19 FOR SURGERY Last Documented On 9 12:37PM By Pat Oneil ; [facility] Acetaminophen 500 MG Oral Tablet 07/20/2019 - 08/19/2019 Provider: Patrick Newton MD Diagnosis: 2 three times a day DO NOT FILL TILL 07/22/19 FOR SURGERY Last Documented On 9 12:44PM By Pat Oneil ; [facility] traMADol HCl 50 MG [...] On 9 12:34PM By Pat Oneil ; [facility] Mupirocin 2% External Ointment 06/20/2019 - 06/25/2019 Provider: Patrick marsh MD Diagnosis: three times a day Apply to n ostrils 3 time a day 5 days prior to surgery. Last Documented On 9 1:10PM By Sushma Miller ; [facility] Cyclobenzaprine HCl 5MG Oral Tablet 08/20/2017 - 10/19/2017 Provider: Giancarlo Wood MD Diagnosis: Take 1 tablet every 8 hrs// Last Documented On 8 4:16PM By Yelena Call ; [facility] Cyclobenzaprine HCl 5MG Oral Tablet 07/31/2017 - 09/29/2017 Provider: Amy gonzalez MD Diagnosis: Take 1 tablet every 8 hrs// Last Documented On 7 11:22AM By Sonia Lima ; [facility] [place] 5-325MG Oral Tablet 06/17/2017 - 07/17/2017 Prov ider: Ramone Staples MD Diagnosis: 1-2 every 4-6 hours as needed Last Documented On 7 9:20AM By Shelly Sood ; [facility] Voltaren 1 % Gel 03/25/2017 - 04/24/2017 Provider: Amy Jimenez MD Diagnosis: four times a day Last Documented On 7 10:06AM By Viktoria Chopra ; [facility] Flector 1.3 % Patch 03/25/2017 - 04/24/2017 Provider: Amy Jimenez MD Diagnosis: once a day Last Documented On 7 10:06AM By Viktoria Chopra ; [facility] [place] 10-325 MG Tablet 03/25/2017 - 04/24/2017 Provide r: Amy Jimenez MD Diagnosis: 1-2 po q 4-6h prn Last Documented On 7 9:59AM By Viktoria Chopra ; [facility] CeleXA 20 MG Tablet 02/25/2017 - 03/27/2017 Provider: Amy Jimenez MD Diagnosis: once a day Last Documented On 7 10:27AM By Haven Mancuso ; [facility] Flector 1.3 % Patch 02/25/2017 - 04/26/2017 Provider: Amy Jimenez MD Diagnosis: apply patch to affected area BID or as needed Last Documented On 7 9:57AM By Viktoria Chopra ; [facility] [place] 10-325 MG Tablet 02/25/2017 - 03/07/2017 Provide r: Amy Jimenez MD Diagnosis: 1-2 po q 4-6h prn Last Documented On 7 9:53AM By Viktoria Chopra ; [facility] [place] 10-325 MG Tablet 01/09/2017 - 01/19/2017 Provide r: Amy Jimenez MD Diagnosis: 1-2 po q 4-6h prn/jkp Last Documented On 7 1:10PM By Haven Mancuso ; [facility] Medications Administered Includes: Administered Medications from this encounter No Administered Medications Recorded Vital Signs Includes: Vital Signs from this encounter Vital Name 08/19/2022 03:18P Blood Pressure Sitting (mmHg) 114/72 Pulse Rate-Sitting (bpm) 99 Height (in) 67 Weight (lb) 200 Body Mass Index 31.3 Body Surface Area 2 Note: aek Last Documented: On 08/19/2022 3:19PM ; [facility] Results Includes: Results discussed during this encounter [...] Documented On 3 2:49PM ; [facility] No tobacco use 04/23/2015 Last Documented On 3 2:49PM ; [facility], [facility] Smoking status : Never smoker 04/23/2015 Last Documented On 3 2:49PM ; [facility], [facility] Caffeine use 03/23/2015 Last Documented On 3 2:49PM ; [facility], [facility] No recent change in diet 03/23/2015 Last Documented On 3 2:49PM ; [facility], [facility] Not a current smoker 03/23/2015 Last Documented On 3 2:49PM ; [facility], [facility] Not exercising regularly 03/23/2015 Last Documented On 3 2:49PM ; [facility], [facility] Not using alcohol 03/23/2015 Last Documented On 3 2:49PM ; [facility], [facility] Not using drugs 03/23/2015 Last Documented On 3 2:49PM ; [facility], [facility] Sex - Female 01/11/2025 Last Documented On 5 12:16PM ; [facility], [facility] Procedures and Surgical History Includes: Procedures from this encounter Procedures Code Diagnosis Performing Provider Service L ocation Service Date use of tobacco assessment performed 1000F Last Documented On 3 2:49PM ; [facility], [facility] Pt received screening for fall risk G8270 Last Documented On 3 2:49PM ; [facility], [facility] Surgical History Last Updated History of total hip replacement 023 Last Documented On 3 8:00AM ; [facility], [facility] History of appendectomy 03/23/2015 Last Documented On 3 2:49PM ; [facility], [facility] History of hysterectomy 03/23/2015 Last Documented On 3 2:49PM ; [facility], [facility] Medical History Includes: Medical History addressed during this encounter Description Last Updated History of Anemia 08/19/2022 Last Documented On 3 8:00AM ; [facility], [facility] History of arthritis 08/19/2022 Last Documented On 3 8:00AM ; [facility], [facility] History of Fractures 08/19/2022 Last Documented On 3 8:00AM ; [facility] History of Heartburn / Acid Reflux 08/19 Last Documented On 3 8:00AM ; [facility] History of Thyroid Disease 08/19/2022 Last Documented On 3 8:00AM ; [facility] Anemia 07/09/2020 Last Documented On 3 2:49PM ; [facility] Arthritis 07/09/2020 Last Documented On 3 2:49PM ; [facility] Heartburn / Acid Reflux 07/09/2020 Last Documented On 3 2:49PM ; [facility] History of Blood Transfusion 07/09/2020 Last Documented On 3 2:49PM ; [facility] History of Rheumatology 07/09/2020 Last Documented On 3 2:49PM ; [facility] Hypertension 07/09/2020 Last Documented On 3 2:49PM ; [facility] Previous Fractures 07/09/2020 Last Documented On 3 2:49PM ; [facility] Thyroid Disease 07/09/2020 Last Documented On 3 2:49PM ; [facility] A recent immunization for flu 07/09/2020 Last Documented On 3 2:49PM ; [facility] Appendectomy 07/09/2020 Last Documented On 3 2:49PM ; [facility] Hysterectomy 07/09/2020 Last Documented On 3 2:49PM ; [facility] Total hip replacement 07/09/2020 Last Documented On 3 2:49PM ; [facility] colon, 2 foot surgeries, tim n pump placement,cateracts, kidney stones, colectomy, heartburn/acid reflux 06/08/2019 Last Documented On 3 2:49PM ; [facility] A previous fracture 06/08/2019 Last Documented On 3 2:49PM ; [facility] History of asthma 06/08/2019 Last Documented On 3 2:49PM ; [facility] History of osteoporosis 06/08/2019 Last Documented On 3 2:49PM ; [facility] Rheumatology history 06/08/2019 Last Documented On 3 2:49PM ; [facility], [facility] Thyroid disease 06/08/2019 Last Documented On 3 2:49PM ; [facility], [facility] A recent immunization for pneumococcal p neumonia 10/05/2014 03/23/2015 Last Documented On 3 2:49PM ; [facility], [facility] Arthritic joint problems 03/23/2015 Last Documented On 3 2:49PM ; [facility], [facility] Gallbladder disease 03/23/2015 Last Documented On 3 2:49PM ; [facility], [facility] History of depression 03/23/2015 Last Documented On 3 2:49PM ; [facility], [facility] Family History Includes: Family History addressed during this encounter Description Last Updated Stroke / Seizures 08/19/2022 Last Documented On 3 8:00AM ; [facility] Diabetes mellitus 07/09/2020 Last Documented On 3 2:49PM ; [facility] Family history of osteoporosis 0 Last Documented On 3 2:49PM ; [facility] Family history of rheumatoid arthritis 1 09/09/2019 Last Documented On 3 2:49PM ; [facility] Family history of cancer 01/09/2017 Last Documented On 3 2:49PM ; [facility] Family history of diabetes mellitus 0 04/2017 Last Documented On 3 2:49PM ; [facility] Family history of heart disease 01/10/20 17 Last Documented On 3 2:49PM ; [facility], [facility] Review of Systems Includes: Review of Systems [...] Mental Status from this encounter Description Anxiety Last Documented On 3 2:49PM ; [facility] Physical Exam Includes: Physical Exam from this encounter Allergies Includes: Active Allergies Substance Type Reaction Onset Date Resolved Date Statu s OTHER Allergy meropenem 06/08/2019 Active Last Documented On 5 8:55AM ; [facility] Lyrica Allergy 03/23/2015 Active Last Documented On 5 8:55AM ; [facility] Keflex Allergy 03/23/2015 Active Last Documented On 5 8:55AM ; [facility] Erythromycin Allergy 03/23/2015 Active Last Documented On 5 8:55AM ; [facility] Codeine Sulfate Allergy 03/23/2015 Act ru Last Documented On 5 8:55AM ; [facility] Clindamycin HCl Allergy 06/08/2019 Act ru Last Documented On 5 8:55AM ; [facility] Cleocin Allergy 03/23/2015 Active Last Documented On 5 8:55AM ; [facility] Cephalexin Allergy 06/08/2019 Active Last Documented On 5 8:55AM ; [facility] Care Chemical Cell Changer Name (Identifier) Role/Relation Location/Telecom Last Documented By LEOPOLDO TEJADA MD ([id number]) [address], [place], [place], [place], [address] tel:[phone] Last Documented On 01/09/2017 12:46PM ; [facility] EFFIE LORENZANA MD ([id number]) Primary care physician (occupation) [address] [place], [place], [place], [address] tel:[phone] Last Documented On 01/11/2025 12:16PM ; [facility] Brian Downs MD ([id number]) Assigned practitioner (occupation) [address], [place], [place], [address] tel:[phone] Last Documented On 01/11/2025 12:16PM ; [facility] Encounters Encounter Provider Location (Healthcare Service Location) Date Check-In Time Check-Out Time Diagnosis Encounter Disposition Follow Up Missael [facility] 2022 2:40PM 4:17PM Payer Includes: Active Insurance Policies Plan Name (Payer ID) Coverage Type Member ID Group # Subscriber (ID) Relationship Effective Dates 1 - Medicare Part B [facility] ([id number]) [id number] Sandie L Clinton Self 4 - Unknown Last Documented On 9 1:05PM ; [facility] 2 - [facility] ([id number]) [id number] Sandie L Clinton Self 08/03/19 19 - Unknown Last Documented On 9 1:06PM ; [facility] Clinical Notes Includes: Clinical Notes from this encounter * Progress note Date Encounter Last Documented by 08/19/2022 Follow Up Last documented on 08/21/2022; 8:00 AM, Missael Avalos PA-C; [facility] Active Problems & Conditions - Carpal Tunnel [...] directed 0 days, 0 refills - Biotin 93418 MCG Oral Tablet take as directed 0 [...] days, 0 refills - [facility] Vitamin D3 70510 UNIT Oral Capsule 250 MCG (56161 UT) take as directed 0 days, 0 refills - Cymbalta 30 MG Oral Capsule Delayed Release Particles take as directed 0 days, 0 refills - Cymbalta 60 MG Oral Capsule Delayed Release Particles take as directed 0 days, 0 refills - Daily Multivitamin Oral Capsule take as directed 0 days, 0 refills - Decara 1.25 MG (85197 UT) Oral Capsule use as directed 0 [...] as directed 0 days, 0 refills - [employer] Oral Capsule use as directed 0 days, [...] Care Team - LEOPOLDO TEJADA MD - CLAY ARTIST
--- OUTSIDE RECORDS SUMMARY | 2025-07-20 11:09 | XMS_ITS | Encounter Summary ---
Author Organization [employer] ([place], [place], [place], [place], [place]) Address [address] [place] [address] Care Team Providers Care Cribbing Setter Name Role Phone Unavailable Primary Care Provider Unavailabl e Encounter Details Date Type Department Care Team (Late st Contact Info) Description 07/25/2019 Transcribed Document [facility] Family Medicine [address] [place] [address] ProviderSonia MD [address] [place] [address] [id number] Social History Tobacco Use Types Packs/Day Years Used Date Smoking Tobacco: Never Assessed Comments Unknown Sex and Gender Information Value Date Recorded Sex Assigned at Not on file Legal Sex Female 1:42 PM CDT Gender Identity Not on file Sexual Orientation Not on file documented as of this encounter Miscellaneous Notes * Cerner Conversion Note - Sonia ProviderMD - 07/25/2019 6:00 AM FIELD COLLECTOR Pain Assessment Entered On: 07/25/2019 6:35 EST [...]
--- OUTSIDE RECORDS SUMMARY | 2025-07-20 11:09 | XMS_ITS | Encounter Summary ---
Author Organization [email or web address] ([place], [place], [place], [place], [place]) Address [address] [place] [address] Care Team Providers Care Poultry Hatchery Laborer Name Role Phone Unavailable Primary Care Provider Unavailabl e Encounter Details Date Type Department Care Team (Late st Contact Info) Description 07/25/2019 Transcribed Document [facility] [address] [place] [address] ProviderSonia MD [address], [place] [id number] Social History Tobacco Use Types Packs/Day Years Used Date Smoking Tobacco: Never Assessed Comments Unknown Sex and Gender Information Value Date Recorded Sex Assigned at Not on file Legal Sex Female 1:42 PM CDT Gender Identity Not on file Sexual Orientation Not on file documented as of this encounter Miscellaneous Notes * Cerner Conversion Note - Sonia ProviderMD - 07/25/2019 5:00 AM ACID WASH OPERATOR Chart Check - Review Order Profile Entered On: 07/25/2019 5:19 EST Performed On: 07/25/2019 5:00 EST by Barrington Roberts RN Chart Check Powerplans Initiated/Discontinued as Appropriate : Yes All Active Orders Reviewed : Yes Barrington Roberts RN - 07/25/2019 5:19 EST Electronically signed by Raman [facility] Conversion Glass Bulb Silverer Cerner at 11/19/2022 8:47 PM CDT documented in this encounter Plan of Treatment Not on file documented as of this encounter Visit Diagnoses Not on filedocumented in this encounter
--- OUTSIDE RECORDS SUMMARY | 2025-07-20 11:09 | XMS_ITS | Encounter Summary ---
Author Organization [employer] ([place], [place], [place], [place], [place]) Address [address] [place] [address] Care Team Providers Care Gas Meter Repairer Name Role Phone Unavailable Primary Care Provider Unavailabl e Encounter Details Date Type Department Care Team (Late st Contact Info) Description 07/25/2019 Transcribed Document [facility] [place] [address] [place] [address] ProviderSonia MD [address] [place], [place] [address] Social History Tobacco Use Types Packs/Day Years Used Date Smoking Tobacco: Never Assessed Comments Unknown Sex and Gender Information Value Date Recorded Sex Assigned at Not on file Legal Sex Female 1:42 PM CDT Gender Identity Not on file Sexual Orientation Not on file documented as of this encounter Miscellaneous Notes * Cerner Conversion Note - Sonia ProviderMD - 07/25/2019 3:14 PM DRY PASTE SUPERVISOR On Going Discharge Planning Entered On: 07/25/2019 15:17 EST Performed On: 07/25/2019 15:14 EST by NICHOLAS HOGUE, RN-Wire TempererPassenger Barge Master Progress Note Discharge Arrangements : Patient Post-Acute Information Patient Name: SANDIE FRANK Gender: Female : 51 Age: 63 Years No Post-Acute Placement(s) Listed No Post-Acute Service(s) Listed No Curaspan Referral(s) Listed Discharge Options Discussed with Patient : Short term rehabilitation NICHOLAS HOGUE, RN-Wire Temperer - 07/25/2019 15:24 EST Narrative Progress Note Narrative Progress Note : CM sent text to Catalina with [facility] this am requesting update on bed availability. She has the pt being reviewed by their physician. CM set ambulance tentatively for tomorrow at 1400. Awaiting word from [facility]. CM updated pt and family. Historical Progress Note : 07/24 met [address] mrs Frank and she is awake and les shaky today... States she wants to go to rehab for getting strength and balance .. Await [facility] ady ,, She 's had her 3 Midnight stay in hospital .... LAMBERT Steele, RN-Wire Temperer - 07/24/19 15:20:00 NICHOLAS HOGUE, RN-Wire Temperer - 07/25/2019 15:24 EST Electronically signed by Raman danya Conversion Hotel Recreational Facilities Manager Cerner at 11/19/2022 8:37 PM CDT documented in this encounter Plan of Treatment Not on file documented as of this encounter Visit Diagnoses Not on filedocumented in this encounter
--- OUTSIDE RECORDS SUMMARY | 2025-07-20 11:09 | XMS_ITS | Encounter Summary ---
Author Organization [employer] ([place], [place], [place], [place], [place]) Address [address] [place] [address] Care Team Providers Care Assistance Coordinator Name Role Phone Unavailable Primary Care Provider Unavailabl e Encounter Details Date Type Department Care Team (Late st Contact Info) Description 07/25/2019 Transcribed Document [facility] [place] [address] [place] [address] ProviderSonia MD [address] [place] [address] Social History Tobacco Use Types Packs/Day Years Used Date Smoking Tobacco: Never Assessed Comments Unknown Sex and Gender Information Value Date Recorded Sex Assigned at Not on file Legal Sex Female 1:42 PM CDT Gender Identity Not on file Sexual Orientation Not on file documented as of this encounter Miscellaneous Notes * Cerner Conversion Note - Sonia ProviderMD - 07/25/2019 4:49 PM MINE CAR DISPATCHER Spiritual Care Short Form Entered On: 07/25/2019 22:21 EST Performed On: 07/25/2019 16:49 EST by Eligio Medina Chaplain-Non Cert General Information, Spiritual Care Spiritual Care Referred by : follow-up Reason for Visit : Follow Up Ministry Provided to : Patient, Family/Significant other Intervention/Comment/Summary Points : Provided prayer with patient and pt's upon their request. Eligio Medina Chaplain-Non Cert - 07/25/2019 22:20 EST Electronically signed by Raman [facility] Conversion Cosmetic Surgeon Cerner at 11/19/2022 8:37 PM CDT documented in this encounter Plan of Treatment Not on file documented as of this encounter Visit Diagnoses Not on filedocumented in this encounter
--- OUTSIDE RECORDS SUMMARY | 2025-07-20 11:10 | XMS_ITS | Encounter Summary ---
Author Organization [employer] ([place], [place], [place], [place], [place]) Address [address] [place] [address] Care Team Providers Care Loan Originator Name Role Phone Unavailable Primary Care Provider Unavailabl e Encounter Details Date Type Department Care Team (Late st Contact Info) Description 07/25/2019 Transcribed Document [facility] [place] [address] [place] [address] ProviderSonia MD [address], [place] [address] Social History Tobacco Use Types Packs/Day Years Used Date Smoking Tobacco: Never Assessed Comments Unknown Sex and Gender Information Value Date Recorded Sex Assigned at Not on file Legal Sex Female 1:42 PM CDT Gender Identity Not on file Sexual Orientation Not on file documented as of this encounter Miscellaneous Notes * Cerner Conversion Note - Historical ProviderMD - 07/25/2019 2:00 AM SEARCH ENGINEER Pharmacy Affairs Assistant Details Entered On: 07/25/2019 2:08 EST Performed [...] Barrington Roberts RN - 07/25/2019 2:07 EST Electronically signed by Raman [facility] Conversion Portable Track Crew Chief Cerner at 11/19/2022 8:48 PM CDT documented in this encounter Plan of Treatment Not on file documented as of this encounter Visit Diagnoses Not on filedocumented in this encounter
--- OUTSIDE RECORDS SUMMARY | 2025-07-20 11:10 | XMS_ITS | Encounter Summary ---
Author Organization [employer] ([place], [place], [place], [place], [place]) Address [address] [place] [address] Care Team Providers Care Treasury Management Sales Consultant Name Role Phone Unavailable Primary Care Provider Unavailabl e Encounter Details Date Type Department Care Team (Late st Contact Info) Description 07/24/2019 Transcribed Document [facility] [place] [address] [place] [address] ProviderSonia MD [address], [place] [address] Social History Tobacco Use Types Packs/Day Years Used Date Smoking Tobacco: Never Assessed Comments Unknown Sex and Gender Information Value Date Recorded Sex Assigned at Not on file Legal Sex Female 1:42 PM CDT Gender Identity Not on file Sexual Orientation Not on file documented as of this encounter Miscellaneous Notes * Cerner Conversion Note - Sonia ProviderMD - 07/24/2019 2:00 PM INTEGRATIVE MEDICINE PHYSICIAN Pain Assessment Entered On: 07/24/2019 14:29 EST [...]
--- OUTSIDE RECORDS SUMMARY | 2025-07-20 11:10 | XMS_ITS | Encounter Summary ---
Author Organization [employer] ([place], [place], [place], [place], [place]) Address [address] [place] [address] Care Team Providers Care Physician Office Secretary Name Role Phone Unavailable Primary Care Provider Unavailabl e Encounter Details Date Type Department Care Team (Late st Contact Info) Description 07/24/2019 Transcribed Document [facility] [place] Medicine [address] [place] [address] ProviderSonia MD [address], [place] [address] Social History Tobacco Use Types Packs/Day Years Used Date Smoking Tobacco: Never Assessed Comments Unknown Sex and Gender Information Value Date Recorded Sex Assigned at Not on file Legal Sex Female 1:42 PM CDT Gender Identity Not on file Sexual Orientation Not on file documented as of this encounter Miscellaneous Notes * Cerner Conversion Note - Sonia ProviderMD - 07/24/2019 3:17 PM RESTAURANT SERVICE MANAGER On Going Discharge Planning Entered On: 07/24/2019 15:20 EST Performed On: 07/24/2019 15:17 EST by LAMBERT HERNANDEZ, RN-Legal AdministratorAcrobatic Dancer Progress Note Discharge Arrangements : Patient Post-Acute Information Patient Name: SANDIE FRANK Gender: Female : 51 Age: 63 Years No Post-Acute Placement(s) Listed No Post-Acute Service(s) Listed No Curaspan Referral(s) Listed Discharge Options Discussed with Patient : DME, Home Health, Short term rehabilitation LAMBERT HERNANDEZ, RN-Legal Administrator - 07/24/2019 15:17 EST Narrative Progress Note Narrative Progress Note : 07/24 met with mrs Frank and she is awake and les shaky today... States she wants to go to rehab for getting strength and balance .. Await [facility] ,, She 's had her 3 Midnight stay in hospital .... LAMBERT Steele, RN-Legal Administrator - 07/24/2019 15:17 EST Electronically signed by Raman, [facility] Conversion Crop Farm Helper Cerner at 11/19/2022 8:25 PM CDT documented in this encounter Plan of Treatment Not on file documented as of this encounter Visit Diagnoses Not on filedocumented in this encounter
--- OUTSIDE RECORDS SUMMARY | 2025-07-20 11:10 | XMS_ITS | Encounter Summary ---
Author Organization [employer] ([place], [place], [place], [place], [place]) Address [address] [place] [address] Care Team Providers Care Dry Starch Operator Name Role Phone Unavailable Primary Care Provider Unavailabl e Encounter Details Date Type Department Care Team (Late st Contact Info) Description 07/25/2019 Transcribed Document [facility] Radiology [address] [place] [address] Travis Robles MD [address] [place], [place] [id number] Social History Tobacco Use Types Packs/Day Years [...] with physical therapy with the , nurse, immigration case manager all the bedside. She look like she is about to fallout ofthe bed. The patient's was asking about taking her home. He wanted to know if Dr. Patrick Knutson M.D. with orthopedic surgery [facility] That [facility] to [facility] although 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 Physical therapy strongly agreed that he needs to go to inpatient rehabilitation either [facility] are at the [facility]. No fevers or chills. No nausea vomiting. [...] She is still agreeable to going to snf facility. Patient's nurse and the patient's immigration case manager who saw her upstairs saw [...] list: Medical Adrenal insufficiency / SNOMED CT 0784718757 / Confirmed Aortic valve stenosis / SNOMED CT 847394035 / Confirmed Arthritis / SNOMED CT 8237264 / Confirmed Asthma / SNOMED CT 993605272 / Confirmed At risk for sleep apnea / IMO [id number] / Confirmed Cataracts, both eyes / SNOMED CT 535749701 / Confirmed chronic back pain / SNOMED CT 084093087 / Confirmed chronic diarrhea / SNOMED CT 156075599 / Confirmed Chronic kidney disease / SNOMED CT 6869904249 / Confirmed B12 deficiency / SNOMED CT 273671131 / Confirmed Dementia / SNOMED CT 39703215 / Confirmed depression / SNOMED CT 72941527 / Confirmed uses Renexa / SNOMED CT 7842629 / Confirmed chronic hydrocort use / SNOMED CT 0653387 / Confirmed peripheral neuropathy / SNOMED CT 45571451 / Confirmed GERD / SNOMED CT 154936729 / Confirmed fibromyalgia / SNOMED CT 04327779 / Confirmed Glaucoma / SNOMED CT 94414187 / Confirmed migraine headaches / SNOMED CT 308253200 / Confirmed hx cataract surgery bilateral / SNOMED CT 7369772917 / Confirmed hx. chest pain / SNOMED CT 0738192947 / Confirmed hx colon resection secondary decreased function / SNOMED CT 9682539531 / Confirmed hx. frequent UTIs / SNOMED CT 6968778376 / Confirmed high cholesterol / SNOMED CT 73553884 / Confirmed high blood pressure / SNOMED CT 8174398875 / Confirmed Hypothyroidism / SNOMED CT 49096002 / Confirmed kidney stone right kidney current and hx / SNOMED CT 325586790 / Confirmed Osteoporosis / SNOMED CT 121940564 / Confirmed Pneumonia / SNOMED CT 770959581 / Confirmed restless leg syndrome / SNOMED CT 58499620 / Confirmed rheumatoid arthritis / SNOMED CT 102164524 / Confirmed Seasonal allergies / SNOMED CT 9984065131 / Confirmed Vitamin D deficiency / SNOMED CT 54097783 / Confirmed Resolved: Hypotension / SNOMED CT 17629496 Canceled: adrenal insufficiency / SNOMED CT 9757487057 Canceled: Hyperthyroidism / SNOMED CT [id number], Active Problems (33) Adrenal insufficiency Aortic valve [...] azelastine 137 mcg/inh (0.1%) nasal spray: 2 Gabriels, Nasal, BID, PRN: Allergies budesonide: 0.5 mg, [...] intl units oral capsule: 1 Cap, Oral, [id number], 0 Refill(s) Dilaudid: pain pump, 0 Refill(s) Flax Seed Oil: 1,200 mg, Oral, BID, 0 Refill(s) Flonase: 1 Gabriels, Nostrils Both, BID Lunesta: 3 mg, Oral, [...] azelastine 205.5 mcg/inh (0.15%) nasal spray: 2 Gabriels, Nasal, BID, PRN: for allergy symptoms, 0 [...] azelastine 205.5 mcg/inh (0.15%) nasal spray 2 Gabriels, PRN, Nasal, BID biotin 5 mg, Oral, [...] 50,000 Int Units = 1 Cap, Oral, [id number] Dilaudid donepezil 23 mg, Oral, Daily famotidine 40 mg, Oral, BID Flax Seed Oil 1,200 mg, Oral, BID Flonase 1 Gabriels, Nostrils Both, BID gabapentin 100 mg oral [...] azelastine 137 mcg/spray nasal 30 mL 2 Gabriels, Nasal, BID bisacodyl 10 mg supp 10 [...] 112 (JUL 24 17:00) H 155 (JUL 24:21) DBP 67 (DEC 23 09:25) L 51 [...] 25:) 16 (JUL 24 17:09) 18 (JUL 25 09:25) SBP 131 (JUL 25 09:25) 112 (JUL 24 17:00) H 155 (JUL 24:) DBP 67 (JUL 25 09:25) L 51 (JUL 24 17:00) 67 (JUL 25 01:54) MAP 84 (JUL 25 09:25) 63 (JUL 24 17:00) 86 (JUL 24:21) SpO2 95 (JUL 25 09:) 94 (JUL 24 17:09) 100 (JUL 24:21) General: Alert and oriented, Mild distress, Obese, [...] is obese and debilitated, her , nurse, immigration case manager THE bedside. The really voiced [...] the afternoon. The patient's nurse and her immigration case manager who saw her yesterday at the bedside and we'll concur that she would benefit from short-term snf facility placement given her right hip replacement. [...] any more bleeding or significant blood loss. [facility] dictation system used. Computer program makes numerous spelling grammar mistakes. If you have any questions or concerns do not hesitate call Dr. Travis Lux at cell phone number [phone]. documented in this encounter Plan of Treatment Not on file documented as of this encounter Visit Diagnoses Not on filedocumented in this encounter
--- OUTSIDE RECORDS SUMMARY | 2025-07-20 11:10 | XMS_ITS | Clinical Summary ---
Author Organization [facility] , [facility] Address [address] [place] [address] Phone Care Team Providers Care Logging Shovel Operator Name Role Phone TERRELL PHIPPS, LEOPOLDO Unavailable [phone] HARRIETT PHIPPS, EFFIE Koenig Primary Care Provider [phone] Yareli PHIPPS, Brian Shelton Unavailable [phone] Reason for Visit and Chief Complaint The Chief Complaint is: right hip pain Problems Includes: Problems addressed during this encounter and other active Problems All Visits Onset Date Date of Diagnosis Resolved Date Provider Condition Status Joint Pain in Both Knees 11/07/2024 11/07/2024 Missael Avalos PA-C Active Last Documented On 5 1:43AM ; [facility], [facility] Joint Pain Hip Right 06/08/2019 06/08/2019 Violette Newton MD Active Last Documented On 5 1:39AM ; [facility], [facility] Joint Pain Shoulder Bilateral 08/20/2017 08/20/2017 Giancarlo Wood MD Active Last Documented On 5 1:39AM ; [facility], [facility] Joint Pain Shoulder 06/17/2017 06/17/2017 Amy Jimenez MD Active Last Documented On 5 1:39AM ; [facility], [facility] Right Forearm Bone Pain 01/09/2017 01/09/2017 Peace Jimenez MD Active Last Documented On 5 1:38AM ; [facility], [facility] Carpal Tunnel Syndrome 03/23/2015 03/23/2015 Hammad Downs MD Active Last Documented On 5 1:38AM ; [facility], [facility] Plan of Treatment Patient was doing fairly well. She is to continue with ad leodan. activity and follow-up in the office in 3-5 years or when necessary - Last Documented On 07/09/2020 11:30AM ; [facility] Instructions to patient Instructions for patient to see pcp for bp and wt Last Documented On 0 10:19AM ; [facility], [facility] Lose weight Last Documented On 0 10:19AM ; [facility] Assessments Includes: Assessments from this encounter Findings One year postop right anterior total hip - Last Documented On 07/09/2020 11:30AM ; [facility], [facility] Instructions Includes: Instructions from this encounter Instructions to patient Instructions for patient to see pcp for bp and wt Last Documented On 0 10:19AM ; [facility] Lose weight Last Documented On 0 10:19AM ; [facility], [facility] Medical Equipment - Implanted Devices Includes: Current Devices No Medical Equipment Recorded Medications Includes: Medications discussed during this encounter and other current Medications Discontinued / Stopped on this date on 06/08/2019 Restasis 0.05% Ophthalmic Emulsion Provid er: Diagnosis: Last Documented On 0 11:01AM By Sandra Mack ; [facility], [facility] Ventolin HFA 108 (90 Base) MCG/ACT Inhalation Aerosol Solution Provider: Diagnosis: Last Documented On 0 10:58AM By Sandra ALONZO [facility] Metoprolol Tartrate 10 MG/ML Oral Solution Provider: Diagnosis: Last Documented On 0 10:56AM By Sandra ALONZO, [facility] Gabapentin 100 MG Oral Capsule Provider: Diagnosis: Last Documented On 0 11:00AM By Sandra [facility] Levothyroxine Sodium 100 MCG Oral Capsule Provider: Diagnosis: Last Documented On 0 10:57AM By Sandra Mack ; [facility] Current Medications (continue as prescribed) QUEtiapine Fumarate 300 MG Oral Tablet 11/04/2024 Pr ovider: Diagnosis: Last Documented On 5 8:26AM By Kaylynn [facility] amLODIPine Besylate 5 MG Oral Tablet 11/04/2024 Prov ider: LEOPOLDO TEJADA MD Diagnosis: Last Documented On 5 8:26AM By Kaylynn Philippe ; [facility] Rosuvastatin Calcium 20 MG Oral Tablet 11/01/2024 Pr ovider: THOMPSON GOSS MD Diagnosis: Last Documented On 5 8:26AM By Kaylynn Philippe ; [facility] DULoxetine HCl 60 MG Oral Capsule Delayed Releas e Particles 10/28/2024 Provider: Diagnosis: Last Documented On 5 8:26AM By Kaylynn Philippe ; [facility] Donepezil HCl 23 MG Oral Tablet 10/25/2024 Provider: Esther Mathew PA-C Diagnosis: Last Documented On 5 8:26AM By Kaylynn Philippe ; [facility], [facility] Trulance 3 MG Oral Tablet 10/23/2024 Provider: YAKOV DIXON MD Diagnosis: Last Documented On 5 8:26AM By Kaylynn Philippe ; [facility] Memantine HCl 10 MG Oral Tablet 10/22/2024 Provider: Esther Mathew PA-C Diagnosis: Last Documented On 5 8:26AM By Kaylynn Philippe ; [facility] lamoTRIgine 100 MG Oral Tablet 10/22/2024 Provider: Esther Mathew PA-C Diagnosis: Last Documented On 5 8:26AM By Kaylynn Phiilppe ; [facility] Montelukast Sodium 10 MG Oral Tablet 10/18/2024 Prov ider: Diagnosis: Last Documented On 5 8:26AM By Kaylynn Philippe ; [facility] Nitrofurantoin Monohyd Macro 100 MG Oral Capsule 10/17/2024 Provider: Maggi zimmer APRN Diagnosis: Last Documented On 5 8:26AM By Kaylynn Philippe ; [facility] Levothyroxine Sodium 88 MCG Oral Tablet 10/14/2024 P rovider: LEOPOLDO TEJADA MD Diagnosis: Last Documented On 5 8:26AM By Kaylynn Philippe ; [facility] Dantrolene Sodium 50 MG Oral Capsule 10/13/2024 Prov ider: Suzan Sanchez MD Diagnosis: Last Documented On 5 8:26AM By Kaylynn Philippe ; [facility] Emgality 120 MG/ML Subcutane ous Solution Auto-injector 10/10/2024 Provider: Esther Mathew PA-C Diagnosis: Last Documented On 5 8:26AM By Kaylynn Philippe ; [facility] Pantoprazole Sodium 40 MG Or al Tablet Delayed Release 10/07/2024 Provider: LEOPOLDO TEJADA MD Diagnosis: Last Documented On 5 8:26AM By Kaylynn Philippe ; [facility] busPIRone HCl 5 MG Oral Tablet 10/04/2024 Provider: Suzan Sanchez MD Diagnosis: Last Documented On 5 8:26AM By Kaylynn Philippe ; [facility], [facility] Linzess 72 MCG Oral Capsule 10/03/2024 Provider: Maggi Crawford APRN Diagnosis: Last Documented On 5 8:26AM By Kaylynn Philippe ; [facility], [facility] Hydrocortisone 5 MG Oral Tablet 09/29/2024 Provider: LEOPOLDO TEJADA MD Diagnosis: Last Documented On 5 8:26AM By Kaylynn Philippe ; [facility], [facility] Cefdinir 300 MG Oral Capsule 09/29/2024 Provider: Diagnosis: Last Documented On 5 8:26AM By Kaylynn Philippe ; [facility], [facility] Past Medications on file Zofran 4 MG Oral Tablet 07/20/2019 - 07/25/2019 Provid er: Patrick Newton MD Diagnosis: [id number] DO NOT FILL TILL 07/22/19 FOR SURGERY Last Documented On 9 12:44PM By Pat Oneil ; [facility] Colace 100 MG Oral Capsule 07/20/2019 - 10/18/2019 Provider: Patrick marsh MD Diagnosis: 1-2 tabs daily DO NOT FILL TILL 12/20/19 FOR SURGERY Last Documented On 9 12:44PM By Pat Oneil ; [facility] Neurontin 300 MG Oral Capsule 07/20/2019 - 10/18/2019 Provider: Patrick marsh MD Diagnosis: 1 every bedtime DO NOT ZEENAT L TILL 07/22/19 FOR SURGERY Last Documented On 9 12:34PM By Pat Oneil ; [facility] Dilaudid 2 MG Oral Tablet 07/20/2019 - 07/22/2019 Provider: Patrick marsh MD Diagnosis: 1-2 po q6h prn pain (RESCUE PAIN)DO NOT FILL TILL 07/22/19 FOR SURGERY Last Documented On 9 12:37PM By Pat Oneil ; [facility] Acetaminophen 500 MG Oral Tablet 07/20/2019 - 08/19/2019 Provider: Patrick Newton MD Diagnosis: 2 three times a day DO NOT FILL TILL 07/22/19 FOR SURGERY Last Documented On 9 12:44PM By Pat Oneil ; [facility] traMADol HCl 50 MG Oral Tablet 07/20/2019 - 07/25/2019 Provider: Patrick marsh MD Diagnosis: 1-2 po q6h prn pain DO NOT FILL TILL 07/22/19 FOR SURGERY Last Documented On 9 12:34PM By Pat Oneil ; [facility] oxyCODONE HCl 5 [...] By Sonia Lima ; [facility] [place] 5-325MG Oral Tablet 06/17/2017 - 07/17/2017 Prov ider: Ramone Staples MD Diagnosis: 1-2 every 4-6 hours as needed Last Documented On 7 9:20AM By Shelly Sood ; [facility] Voltaren 1 % Gel 03/25/2017 - 04/24/2017 Provider: Amy Jimenez MD Diagnosis: four times a day Last Documented On 7 10:06AM By Viktoria Chopra ; [facility] Flector 1.3 % Patch 03/25/2017 - 04/24/2017 Provider: Amy Jimenez MD Diagnosis: once a day Last Documented On 7 10:06AM By Viktoria Chopra ; [facility] [place] 10-325 MG Tablet 03/25/2017 - 04/24/2017 Provide r: Amy Jimenez MD Diagnosis: 1-2 po q 4-6h prn Last Documented On 7 9:59AM By Viktoria Chopra ; [facility] CeleXA 20 MG Tablet 02/25/2017 - 03/27/2017 Provider: Amy Jimenez MD Diagnosis: once a day Last Documented On 7 10:27AM By Haven Mancuso ; [facility] Flector 1.3 % Patch 02/25/2017 - 04/26/2017 Provider: Amy Jimenez MD Diagnosis: apply patch to affected area BID or as needed Last Documented On 7 9:57AM By Viktoria Chopra ; [facility] [place] 10-325 MG Tablet 02/25/2017 - 03/07/2017 Provide r: Amy Jimenez MD Diagnosis: 1-2 po q 4-6h prn Last Documented On 7 9:53AM By Viktoria Chopra ; [facility] [place] 10-325 MG Tablet 01/09/2017 - 01/19/2017 Provide r: Amy Jimenez MD Diagnosis: 1-2 po q 4-6h prn/jkp Last Documented On 7 1:10PM By Haven Mancuso ; [facility] Medications Administered Includes: Administered Medications from this encounter No Administered Medications Recorded Vital Signs Includes: Vital Signs from this encounter Vital Name 07/09/2020 10:19A Blood Pressure Sitting (mmHg) 117/71 Pulse Rate-Sitting (bpm) 65 Height (in) 67 Weight (lb) 240 Body Mass Index (kg/m2) 37.6 Body Surface Area (m2) 2.2 Note: rj Last Documented: On 07/09/2020 10:55A M ; [facility] Results Includes: Results discussed during [...] 07/09/2020 Last Documented On 0 11:30AM ; [facility] Not a current smoker. 07/09/2020 Last Documented On 0 11:30AM ; [facility] No tobacco use 04/23/2015 Last Documented On 0 10:19AM ; [facility] Smoking status : Never smoker 04/23/2015 Last Documented On 0 10:19AM ; [facility] Caffeine use 03/23/2015 Last Documented On 0 10:19AM ; [facility] No recent change in diet 03/23/2015 Last Documented On 0 10:19AM ; [facility] Not a current smoker 03/23/2015 Last Documented On 0 10:19AM ; [facility], [facility] Not exercising regularly 03/23/2015 Last Documented On 0 10:19AM ; [facility] Not using alcohol 03/23/2015 Last Documented On 0 10:19AM ; [facility] Not using drugs 03/23/2015 Last Documented On 0 10:19AM ; [facility], [facility] Sex - Female 01/11/2025 Last Documented On 5 12:16PM ; [facility], [facility] Procedures and Surgical History Includes: Procedures from this encounter Procedures Code Diagnosis Performing Provider Service L ocation Service Date use of tobacco assessment performed 1000F Last Documented On 0 10:19AM ; [facility], [facility] Pt received screening for fall risk [id number] Last Documented On 0 10:19AM ; [facility], [facility] history of an X-ray was performed 39797 Last Documented On 0 10:19AM ; [facility] history of an MRI was performed 00023 Last Documented On 0 10:19AM ; [facility], [facility] Surgical History Last Updated History of appendectomy 03/23/2015 Last Documented On 0 10:19AM ; [facility] History of hysterectomy 03/23/2015 Last Documented On 0 10:19AM ; [facility], [facility] Medical History Includes: Medical History addressed during this encounter Description Last Updated Anemia 07/09/2020 Last Documented On 0 11:30AM ; [facility] Arthritis 07/09/2020 Last Documented On 0 11:30AM ; [facility], [facility] Heartburn / Acid Reflux 07/09/2020 Last Documented On 0 11:30AM ; [facility], [facility] History of Blood Transfusion 07/09/2020 Last Documented On 0 11:30AM ; [facility], [facility] History of Rheumatology 07/09/2020 Last Documented On 0 11:30AM ; [facility], [facility] Hypertension 07/09/2020 Last Documented On 0 11:30AM ; [facility], [facility] Previous Fractures 07/09/2020 Last Documented On 0 11:30AM ; [facility], [facility] Thyroid Disease 07/09/2020 Last Documented On 0 11:30AM ; [facility], [facility] A recent immunization for flu 07/09/2020 Last Documented On 0 11:30AM ; [facility], [facility] Appendectomy 07/09/2020 Last Documented On 0 11:30AM ; [facility] Hysterectomy 07/09/2020 Last Documented On 0 11:30AM ; [facility], [facility] Total hip replacement 07/09/2020 Last Documented On 0 11:30AM ; [facility], [facility] colon, 2 foot surgeries, tim n pump placement,cateracts, kidney stones, colectomy, heartburn/acid reflux 06/08/2019 Last Documented On 0 10:19AM ; [facility], [facility] A previous fracture 06/08/2019 Last Documented On 0 10:19AM ; [facility], [facility] History of asthma 06/08/2019 Last Documented On 0 10:19AM ; [facility], [facility] History of osteoporosis 06/08/2019 Last Documented On 0 10:19AM ; [facility], [facility] Rheumatology history 06/08/2019 Last Documented On 0 10:19AM ; [facility], [facility] Thyroid disease 06/08/2019 Last Documented On 0 10:19AM ; [facility], [facility] A recent immunization for pneumococcal p neumonia 10/05/2014 03/23/2015 Last Documented On 0 10:19AM ; [facility], [facility] Arthritic joint problems 03/23/2015 Last Documented On 0 10:19AM ; [facility], [facility] Gallbladder disease 03/23/2015 Last Documented On 0 10:19AM ; [facility], [facility] History of depression 03/23/2015 Last Documented On 0 10:19AM ; [facility], [facility] Family History Includes: Family History addressed during this encounter Description Last Updated Diabetes mellitus 07/09/2020 Last Documented On 0 11:30AM ; [facility] Family history of osteoporosis 0 Last Documented On 0 11:30AM ; [facility] Family history of rheumatoid arthritis 1 09/09/2019 Last Documented On 0 11:30AM ; [facility] Family history of cancer 01/09/2017 Last Documented On 0 10:19AM ; [facility] Family history of diabetes mellitus 04/2017 Last Documented On 0 10:19AM ; [facility] Family history of heart disease 01/10/20 17 Last Documented On 0 10:19AM ; [facility] Review of Systems Includes: Review of [...] this encounter Description Anxiety Last Documented On 0 10:19AM ; [facility] Physical Exam Includes: Physical Exam from this encounter Immunizations Includes: Immunizations addressed during this encounter Vaccine Dose # Date Site Reaction(s) Status Source Influenza 1 05/03/2020 Complete (Reported) Patient Last Documented On 0 11:15AM ; [facility] PCV (Pneumovax 23) 1 08/03/1997 Complete ( Reported) Patient Last Documented On 0 11:15AM ; [facility], [facility] Allergies Includes: Active Allergies Substance Type Reaction Onset Date Resolved Date Statu s OTHER Allergy meropenem 06/08/2019 Active Last Documented On 5 8:55AM ; [facility], [facility] Lyrica Allergy 03/23/2015 Active Last Documented On 5 8:55AM ; [facility], [facility] Keflex Allergy 03/23/2015 Active Last Documented On 5 8:55AM ; [facility], [facility] Erythromycin Allergy 03/23/2015 Active Last Documented On 5 8:55AM ; [facility] Codeine Sulfate Allergy 03/23/2015 Act ru Last Documented On 5 8:55AM ; [facility] Clindamycin HCl Allergy 06/08/2019 Act ru Last Documented On 5 8:55AM ; [facility], [facility] Cleocin Allergy 03/23/2015 Active Last Documented On 5 8:55AM ; [facility] Cephalexin Allergy 06/08/2019 Active Last Documented On 5 8:55AM ; [facility] Care Logging Shovel Operator Name (Identifier) Role/Relation Location/Telecom Last Documented By LEOPOLDO TEJADA MD ([id number]) [address], [place], [place], [place], [address] tel:[phone] Last Documented On 01/09/2017 12:46PM ; [facility] EFFIE LORENZANA MD ([id number]) Primary care physician (occupation) [address] , [place], [place], [place], [address] tel:[phone] Last Documented On 01/11/2025 12:16PM ; [facility] Brian Downs MD ([id number]) Assigned practitioner (occupation) [address], [place], [place], [address] tel: Last Documented On 01/11/2025 12:16PM ; [facility] Encounters Encounter Provider Location (Healthcare Service Location) Date Check-In Time Check-Out Time Diagnosis Encounter Disposition Follow Up [facility] 2019 10:18AM 11:30AM Payer Includes: Active Insurance Policies Plan Name (Payer ID) Coverage Type Member ID Group # Subscriber (ID) Relationship Effective Dates 1 - Medicare Part B [facility] ([id number]) [id number] Sandie Frank Self 4 - Unknown Last Documented On 9 1:05PM ; [facility] - [facility] ([id number]) [id number] Sandie Frank Self 08/03/19 19 - Unknown Last Documented On 9 1:06PM ; [facility]
--- OUTSIDE RECORDS SUMMARY | 2025-07-20 11:11 | XMS_ITS | Encounter Summary ---
Author Organization [employer] ([place], [place], [place], [place], [place]) Address [address] [place] [address] Care Team Providers Care Maori Liaison Adviser Name Role Phone Unavailable Primary Care Provider Unavailabl e Encounter Details Date Type Department Care Team (Late st Contact Info) Description 07/24/2019 Transcribed Document [facility] Family Medicine [facility] [place] [address] ProviderSonia MD [facility] [place] [employer] [facility] [place] [place] [address] Social History Tobacco Use Types Packs/Day Years Used Date Smoking Tobacco: Never Assessed Comments Unknown Sex and Gender Information Value Date Recorded Sex Assigned at Not on file Legal Sex Female 1:42 PM CDT Gender Identity Not on file Sexual Orientation Not on file documented as of this encounter Miscellaneous Notes * [employer] Conversion Note - Sonia Boogie MD - 07/24/2019 8:49 AM HAND GRINDER Patient: SANDIE FRANK Age: 63 Years Sex: [...] azelastine 137 mcg/inh (0.1%) nasal spray, 2 [place], Nasal, BID, PRN Benadryl, 25 mg= 1 [...] No 07/24/2019 03:41 EST Electronically signed by Raman, [facility] Conversion Welder Journeyman Cerner at 11/19/2022 8:35 PM CDT documented in this encounter Plan of Treatment Not on file documented as of this encounter Visit Diagnoses Not on filedocumented in this encounter
--- OUTSIDE RECORDS SUMMARY | 2025-07-20 11:11 | XMS_ITS | Encounter Summary ---
Author Organization [employer] ([place], [place], [place], [place], [place]) Address [address] [place] [address] Care Team Providers Care Receiving Operator Name Role Phone Unavailable Primary Care Provider Unavailabl e Encounter Details Date Type Department Care Team (Late st Contact Info) Description 07/27/2019 Transcribed Document [facility] Family Medicine [address] [place] [address] ProviderSonia MD [facility] [place] [address] Social History Tobacco Use Types Packs/Day Years Used Date Smoking Tobacco: Never Assessed Comments Unknown Sex and Gender Information Value Date Recorded Sex Assigned at Not on file Legal Sex Female 1:42 PM CDT Gender Identity Not on file Sexual Orientation Not on file documented as of this encounter Miscellaneous Notes * [employer] Conversion Note - Sonia ProviderMD - 07/27/2019 2:00 PM EMPLOYMENT CASE MANAGER Pain Assessment Entered On: 07/27/2019 16:45 EST [...]
--- OUTSIDE RECORDS SUMMARY | 2025-07-20 11:11 | XMS_ITS | Encounter Summary ---
Author Organization [employer] ([place], [place], [place], [place], [place]) Address [address] [place] [address] Care Team Providers Care Profiling Machine Set Up Operator Name Role Phone Unavailable Primary Care Provider Unavailabl e Encounter Details Date Type Department Care Team (Late st Contact Info) Description 07/27/2019 Transcribed Document [facility] [place] [place] Family Medicine [address] [place] [address] ProviderSonia MD [address] [place] [address] Social History Tobacco Use Types Packs/Day Years Used Date Smoking Tobacco: Never Assessed Comments Unknown Sex and Gender Information Value Date Recorded Sex Assigned at Not on file Legal Sex Female 1:42 PM CDT Gender Identity Not on file Sexual Orientation Not on file documented as of this encounter Miscellaneous Notes * [employer] Conversion Note - Sonia ProviderMD - 07/27/2019 6:00 AM AIR BATTLE MANAGER Pain Assessment Entered On: 07/27/2019 6:58 EST [...] 07/27/2019 6:58 EST Electronically signed by Raman [facility] Conversion Loss Control Consultant Cerner at 11/19/2022 8:21 PM CDT documented in this encounter Plan of Treatment Not on file documented as of this encounter Visit Diagnoses Not on filedocumented in this encounter
--- OUTSIDE RECORDS SUMMARY | 2025-07-20 11:11 | XMS_ITS | Encounter Summary ---
Author Organization [employer] ([place], [place], [place], [place], [place]) Address [address] [place] [address] Care Team Providers Care Cattle Trader Name Role Phone Unavailable Primary Care Provider Unavailabl e Encounter Details Date Type Department Care Team (Late st Contact Info) Description 07/24/2019 Transcribed Document [facility] [place] Family Medicine [address] [place] [address] ProviderSonia MD [address] [place], [place] [address] Social History Tobacco Use Types Packs/Day Years Used Date Smoking Tobacco: Never Assessed Comments Unknown Sex and Gender Information Value Date Recorded Sex Assigned at Not on file Legal Sex Female 1:42 PM CDT Gender Identity Not on file Sexual Orientation Not on file documented as of this encounter Miscellaneous Notes * Cerner Conversion Note - Sonia ProviderMD - 07/24/2019 10:00 PM ENGINEERING TEST SPECIALIST Pain Assessment Entered On: 07/25/2019 0:08 EST [...]
--- OUTSIDE RECORDS SUMMARY | 2025-07-20 11:11 | XMS_ITS | Encounter Summary ---
Author Organization [employer] ([place], [place], [place], [place], [place]) Address [address] [place] [address] Care Team Providers Care Nutrition Internship Name Role Phone Unavailable Primary Care Provider Unavailabl e Encounter Details Date Type Department Care Team (Late st Contact Info) Description 07/24/2019 Transcribed Document [facility] [place] [address] [place] [address] ProviderSonia MD [address] [place], [place] [address] Social History Tobacco Use Types Packs/Day Years Used Date Smoking Tobacco: Never Assessed Comments Unknown Sex and Gender Information Value Date Recorded Sex Assigned at Not on file Legal Sex Female 1:42 PM CDT Gender Identity Not on file Sexual Orientation Not on file documented as of this encounter Miscellaneous Notes * Cerner Conversion Note - Historical ProviderMD - 07/24/2019 2:00 AM DIRECTOR MEDICAL ECONOMICS Fleecer Details Entered On: 07/24/2019 2:22 EST Performed [...] 07/24/2019 2:21 EST Electronically signed by Raman [facility] Conversion Robotics Engineer Cerner at 11/19/2022 8:28 PM CDT documented in this encounter Plan of Treatment Not on file documented as of this encounter Visit Diagnoses Not on filedocumented in this encounter
--- OUTSIDE RECORDS SUMMARY | 2025-07-20 11:11 | XMS_ITS | Encounter Summary ---
Author Organization [employer] ([place], [place], [place], [place], [place]) Address [address] [place] [address] Care Team Providers Care Electrical Sign Wirer Helper Name Role Phone Unavailable Primary Care Provider Unavailabl e Encounter Details Date Type Department Care Team (Late st Contact Info) Description 07/24/2019 Transcribed Document [facility] Radiology [address] [place] [address] Travis Robles MD [address] [place], [place] [id number] Social History Tobacco Use Types Packs/Day Years [...] actually goes to see patients at the [facility] That he does not go to the [facility] although 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 Physical therapy strongly agreed that he needs to go to inpatient rehabilitation either [facility] are at the [facility]. No fevers or chills. No nausea vomiting. [...] list: Medical Adrenal insufficiency / SNOMED CT 8940924506 / Confirmed Aortic valve stenosis / SNOMED CT 007744209 / Confirmed Arthritis / SNOMED CT 6144149 / Confirmed Asthma / SNOMED CT 982362348 / Confirmed At risk for sleep apnea / IMO 02553530 / Confirmed Cataracts, both eyes / SNOMED CT 065651324 / Confirmed chronic back pain / SNOMED CT 379868697 / Confirmed chronic diarrhea / SNOMED CT 135198868 / Confirmed Chronic kidney disease / SNOMED CT 5995201642 / Confirmed B12 deficiency / SNOMED CT 400410012 / Confirmed Dementia / SNOMED CT 32700512 / Confirmed depression / SNOMED CT 64749476 / Confirmed uses Renexa / SNOMED CT 7076233 / Confirmed chronic hydrocort use / SNOMED CT 4932348 / Confirmed peripheral neuropathy / SNOMED CT 44961273 / Confirmed GERD / SNOMED CT 766782487 / Confirmed fibromyalgia / SNOMED CT 01339885 / Confirmed Glaucoma / SNOMED CT 57479821 / Confirmed migraine headaches / SNOMED CT 984405520 / Confirmed hx cataract surgery bilateral / SNOMED CT 1248028900 / Confirmed hx. chest pain / SNOMED CT 9814383987 / Confirmed hx colon resection secondary decreased function / SNOMED CT 0384433354 / Confirmed hx. frequent UTIs / SNOMED CT 2076589672 / Confirmed high cholesterol / SNOMED CT 47905856 / Confirmed high blood pressure / SNOMED CT 1789183892 / Confirmed Hypothyroidism / SNOMED CT 45187021 / Confirmed kidney stone right kidney current and hx / SNOMED CT 467119772 / Confirmed Osteoporosis / SNOMED CT 241851722 / Confirmed Pneumonia / SNOMED CT 681478975 / Confirmed restless leg syndrome / SNOMED CT 59523761 / Confirmed rheumatoid arthritis / SNOMED CT 078285590 / Confirmed Seasonal allergies / SNOMED CT 1911927995 / Confirmed Vitamin D deficiency / SNOMED CT 85256339 / Confirmed Resolved: Hypotension / SNOMED CT 19119814 Canceled: adrenal insufficiency / SNOMED CT 4656239939 Canceled: Hyperthyroidism / SNOMED CT 66820LSI-[id number], Active Problems (33) Adrenal insufficiency Aortic valve [...] azelastine 137 mcg/inh (0.1%) nasal spray: 2 [place], Nasal, BID, PRN: Allergies budesonide: 0.5 mg, [...] intl units oral capsule: 1 Cap, Oral, [id number], 0 Refill(s) Dilaudid: pain pump, 0 Refill(s) Flax Seed Oil: 1,200 mg, Oral, BID, 0 Refill(s) Flonase: 1 [place], Nostrils Both, BID Lunesta: 3 mg, Oral, [...] azelastine 205.5 mcg/inh (0.15%) nasal spray: 2 [place], Nasal, BID, PRN: for allergy symptoms, 0 [...] azelastine 205.5 mcg/inh (0.15%) nasal spray 2 [place], PRN, Nasal, BID biotin 5 mg, Oral, [...] 50,000 Int Units = 1 Cap, Oral, [id number] Dilaudid donepezil 23 mg, Oral, Daily famotidine 40 mg, Oral, BID Flax Seed Oil 1,200 mg, Oral, BID Flonase 1 [place], Nostrils Both, BID gabapentin 100 mg oral [...] azelastine 137 mcg/spray nasal 30 mL 2 [place], Nasal, BID bisacodyl 10 mg supp 10 [...] Temp 98 (JUL 24 09:36) 97.7 (JUL 24:) 98 (JUL 23 18:45) [...] and basic metabolic profile in the morning. [employer] system used. Computer program makes numerous spelling grammar mistakes. If you have any questions or concerns do not hesitate call Dr. Travis Lux at cell phone number [phone]. documented in this encounter Plan of Treatment Not on file documented as of this encounter Visit Diagnoses Not on filedocumented in this encounter
--- OUTSIDE RECORDS SUMMARY | 2025-07-20 11:12 | XMS_ITS | Encounter Summary ---
Author Organization [employer] ([place], [place], [place], [place], [place]) Address [address] [place] [address] Care Team Providers Care Liner Roll Changer Name Role Phone Unavailable Primary Care Provider Unavailabl e Encounter Details Date Type Department Care Team (Late st Contact Info) Description 07/27/2019 Transcribed Document [facility] [place] [address] [place] [address] ProviderSonia MD [address] [place], [place] [address] Social History Tobacco Use Types Packs/Day Years Used Date Smoking Tobacco: Never Assessed Comments Unknown Sex and Gender Information Value Date Recorded Sex Assigned at Not on file Legal Sex Female 1:42 PM CDT Gender Identity Not on file Sexual Orientation Not on file documented as of this encounter Miscellaneous Notes * Cerner Conversion Note - Sonia ProviderMD - 07/27/2019 5:00 PM REMELT PAN TANK OPERATOR Chart Check - Review Order Profile Entered On: 07/27/2019 20:01 EST Performed On: 07/27/2019 17:00 EST by Esther Cunningham RN Chart Check Powerplans Initiated/Discontinued as Appropriate : Yes All Active Orders Reviewed : Yes Esther Cunningham RN - 07/27/2019 20:01 EST Electronically signed by Raman [facility] Conversion Supervisor Stave Finishing Cerner at 11/19/2022 8:33 PM CDT documented in this encounter Plan of Treatment Not on file documented as of this encounter Visit Diagnoses Not on filedocumented in this encounter
--- OUTSIDE RECORDS SUMMARY | 2025-07-20 11:12 | XMS_ITS | Encounter Summary ---
Author Organization [employer] ([place], [place], [place], [place], [place]) Address [address] [place] [address] Care Team Providers Care Area Development Manager Name Role Phone Unavailable Primary Care Provider Unavailabl e Encounter Details Date Type Department Care Team (Late st Contact Info) Description 07/27/2019 Transcribed Document [facility] [place] [address] [place] [address] ProviderSonia MD [address] [place], [place] [address] Social History Tobacco Use Types Packs/Day Years Used Date Smoking Tobacco: Never Assessed Comments Unknown Sex and Gender Information Value Date Recorded Sex Assigned at Not on file Legal Sex Female 1:42 PM CDT Gender Identity Not on file Sexual Orientation Not on file documented as of this encounter Miscellaneous Notes * Cerner Conversion Note - Historical ProviderMD - 07/27/2019 2:00 AM CORPORATE SALES MANAGER Client Associate Details Entered On: 07/27/2019 2:11 EST Performed [...]
--- OUTSIDE RECORDS SUMMARY | 2025-07-20 11:12 | XMS_ITS | Encounter Summary ---
Author Organization [employer] ([place], [place], [place], [place], [place]) Address [address] [place] [address] Care Team Providers Care Sod Farmer Name Role Phone Unavailable Primary Care Provider Unavailabl e Encounter Details Date Type Department Care Team (Late st Contact Info) Description 07/26/2019 Transcribed Document [facility] [place] [address] [place] [address] ProviderSonia MD [address] [place], [place] [address] Social History Tobacco Use Types Packs/Day Years Used Date Smoking Tobacco: Never Assessed Comments Unknown Sex and Gender Information Value Date Recorded Sex Assigned at Not on file Legal Sex Female 1:42 PM CDT Gender Identity Not on file Sexual Orientation Not on file documented as of this encounter Miscellaneous Notes * Cerner Conversion Note - Sonia ProviderMD - 07/26/2019 5:00 PM HIGH CLIMBER Chart Check - Review Order Profile Entered On: 07/26/2019 17:15 EST Performed On: 07/26/2019 17:00 EST by Jennifer Coleman, RN Chart Check Powerplans Initiated/Discontinued as Appropriate : Yes All Active Orders Reviewed : Yes Jennifer Coleman, RN - 07/26/2019 17:15 EST Electronically signed by Raman [facility] Conversion Manager Architectural Cerner at 11/19/2022 8:40 PM CDT documented in this encounter Plan of Treatment Not on file documented as of this encounter Visit Diagnoses Not on filedocumented in this encounter
--- OUTSIDE RECORDS SUMMARY | 2025-07-20 11:12 | XMS_ITS | Encounter Summary ---
Author Organization [employer] ([place], [place], [place], [place], [place]) Address [address] [place] [address] Care Team Providers Care Casing Inspector Name Role Phone Unavailable Primary Care Provider Unavailabl e Encounter Details Date Type Department Care Team (Late st Contact Info) Description 07/27/2019 Transcribed Document [facility] Radiology [address] [place] [address] Travis Robles MD [address] [place], [place] [address] Social History Tobacco Use Types Packs/Day Years [...] with physical therapy with the , nurse, family service caseworker all the bedside. She look like she is about to fallout ofthe bed. The patient's was asking about taking her home. He wanted to know if Dr. Patrick Knutson M.D. 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 Physical therapy strongly agreed that he needs to go to inpatient rehabilitation either [facility] are at the [facility]. No fevers or chills. No nausea vomiting. [...] intermediate facility. Patient's nurse and the patient's family service caseworker who saw her upstairs saw her again [...] at the bedside as well as the family service caseworker. They're looking at placement options. Apparently wanted [...] list: Medical Adrenal insufficiency / SNOMED CT 7410188019 / Confirmed Aortic valve stenosis / SNOMED CT 998844336 / Confirmed Arthritis / SNOMED CT 4889739 / Confirmed Asthma / SNOMED CT 628065917 / Confirmed At risk for sleep apnea / IMO 98282238 / Confirmed Cataracts, both eyes / SNOMED CT 146362435 / Confirmed chronic back pain / SNOMED CT 378636678 / Confirmed chronic diarrhea / SNOMED CT 447570441 / Confirmed Chronic kidney disease / SNOMED CT 8333893858 / Confirmed B12 deficiency / SNOMED CT 294700666 / Confirmed Dementia / SNOMED CT 29485610 / Confirmed depression / SNOMED CT 24664598 / Confirmed uses Renexa / SNOMED CT 5027190 / Confirmed chronic hydrocort use / SNOMED CT 8124944 / Confirmed peripheral neuropathy / SNOMED CT 51487915 / Confirmed GERD / SNOMED CT 151334433 / Confirmed fibromyalgia / SNOMED CT 82981947 / Confirmed Glaucoma / SNOMED CT 25047585 / Confirmed migraine headaches / SNOMED CT 863310952 / Confirmed hx cataract surgery bilateral / SNOMED CT 1684429386 / Confirmed hx. chest pain / SNOMED CT 4501557329 / Confirmed hx colon resection secondary decreased function / SNOMED CT 1946504319 / Confirmed hx. frequent UTIs / SNOMED CT 0488574988 / Confirmed high cholesterol / SNOMED CT 03635022 / Confirmed high blood pressure / SNOMED CT 9737667749 / Confirmed Hypothyroidism / SNOMED CT 12769256 / Confirmed kidney stone right kidney current and hx / SNOMED CT 876939221 / Confirmed Osteoporosis / SNOMED CT 220997573 / Confirmed Pneumonia / SNOMED CT 260485936 / Confirmed restless leg syndrome / SNOMED CT 66039346 / Confirmed rheumatoid arthritis / SNOMED CT 433281540 / Confirmed Seasonal allergies / SNOMED CT 1714005900 / Confirmed Vitamin D deficiency / SNOMED CT 73929900 / Confirmed Resolved: Hypotension / SNOMED CT 46213480 Canceled: adrenal insufficiency / SNOMED CT 9127542474 Canceled: Hyperthyroidism / SNOMED CT 31044NCW-[id number], Active Problems (33) Adrenal insufficiency Aortic valve [...] mg, Rectal, 1-Time, PRN: Constipation Flonase: 1 [place], Nostrils Both, BID Florastor: 250 mg, Oral, [...] intl units oral capsule: 1 Cap, Oral, X2Bzzso, 0 Refill(s) Dilaudid: pain pump, 0 Refill(s) Flax Seed Oil: 1,200 mg, Oral, BID, 0 Refill(s) Flonase: 1 [place], Nostrils Both, BID Lunesta: 3 mg, Oral, [...] azelastine 205.5 mcg/inh (0.15%) nasal spray: 2 [place], Nasal, BID, PRN: for allergy symptoms, 0 [...] azelastine 205.5 mcg/inh (0.15%) nasal spray 2 [place], PRN, Nasal, BID biotin 5 mg, Oral, [...] 50,000 Int Units = 1 Cap, Oral, H7Ujwan Dilaudid donepezil 23 mg, Oral, Daily famotidine 40 mg, Oral, BID Flax Seed Oil 1,200 mg, Oral, BID Flonase 1 [place], Nostrils Both, BID gabapentin 100 mg oral [...] Oral, QAM fluticasone 0.05% nasal spray 1 [place], Nostrils Both, BID gabapentin 100 mg cap [...] is obese and debilitated, her , nurse, family service caseworker THE bedside. The really voiced some interest [...] the afternoon. The patient's nurse and her family service caseworker who saw her yesterday at the bedside [...] 8.5, creatinine screw 0.9. PATIENT, her , family service caseworker. She was turned down by the [facility] because she's on some expensive medications including [...] gets a bed at a rehabilitation facility. [employer] dictation system used. Computer program makes numerous spelling grammar mistakes. If you have any questions or concerns do not hesitate call Dr. Travis Lux at cell phone number [phone]. documented in this encounter Plan of Treatment Not on file documented as of this encounter Visit Diagnoses Not on filedocumented in this encounter
--- OUTSIDE RECORDS SUMMARY | 2025-07-20 11:12 | XMS_ITS | Encounter Summary ---
Author Organization [employer] ([place], [place], [place], [place], [place]) Address [address] [place] [address] Care Team Providers Care Living Coach Name Role Phone Unavailable Primary Care Provider Unavailabl e Encounter Details Date Type Department Care Team (Late st Contact Info) Description 07/26/2019 Transcribed Document [facility] [place] [address] [place] [address] ProviderSonia MD [address] [place], [place] [address] Social History Tobacco Use Types Packs/Day Years Used Date Smoking Tobacco: Never Assessed Comments Unknown Sex and Gender Information Value Date Recorded Sex Assigned at Not on file Legal Sex Female 1:42 PM CDT Gender Identity Not on file Sexual Orientation Not on file documented as of this encounter Miscellaneous Notes * Cerner Conversion Note - Sonia ProviderMD - 07/26/2019 5:00 AM OILER BANDER Chart Check - Review Order Profile Entered On: 07/26/2019 4:47 EST Performed On: 07/26/2019 5:00 EST by Barrington Roberts RN Chart Check Powerplans Initiated/Discontinued as Appropriate : Yes All Active Orders Reviewed : Yes Barrington Roberts RN - 07/26/2019 4:47 EST documented in this encounter Plan of Treatment Not on file documented as of this encounter Visit Diagnoses Not on filedocumented in this encounter
--- OUTSIDE RECORDS SUMMARY | 2025-07-20 11:13 | XMS_ITS | Encounter Summary ---
Author Organization [employer] ([place], [place], [place], [place], [place]) Address [address] [place] [address] Care Team Providers Care Director Of Community Center Name Role Phone Unavailable Primary Care Provider Unavailabl e Encounter Details Date Type Department Care Team (Late st Contact Info) Description 07/26/2019 Transcribed Document [facility] [place] Family [place] [address] [place] [address] ProviderSonia MD [address] [place], [place] [address] Social History Tobacco Use Types Packs/Day Years Used Date Smoking Tobacco: Never Assessed Comments Unknown Sex and Gender Information Value Date Recorded Sex Assigned at Not on file Legal Sex Female 1:42 PM CDT Gender Identity Not on file Sexual Orientation Not on file documented as of this encounter Miscellaneous Notes * Cerner Conversion Note - Sonia ProviderMD - 07/26/2019 5:10 PM SLEEPER CUTTER Event Note Entered On: 07/26/2019 17:11 EST [...]
--- OUTSIDE RECORDS SUMMARY | 2025-07-20 11:13 | XMS_ITS | Encounter Summary ---
Author Organization [employer] ([place], [place], [place], [place], [place]) Address [address] [place] [address] Care Team Providers Care Large Animal Husbandry Technician Name Role Phone Unavailable Primary Care Provider Unavailabl e Encounter Details Date Type Department Care Team (Late st Contact Info) Description 07/26/2019 Transcribed Document [facility] [place] [address] [place] [address] ProviderSonia MD [address] [place], [place] [address] Social History Tobacco Use Types Packs/Day Years Used Date Smoking Tobacco: Never Assessed Comments Unknown Sex and Gender Information Value Date Recorded Sex Assigned at Not on file Legal Sex Female 1:42 PM CDT Gender Identity Not on file Sexual Orientation Not on file documented as of this encounter Miscellaneous Notes * Cerner Conversion Note - Sonia ProviderMD - 07/26/2019 10:00 PM MEDICAL LAB DIRECTOR Pain Assessment Entered On: 07/27/2019 2:08 EST [...]
--- OUTSIDE RECORDS SUMMARY | 2025-07-20 11:13 | XMS_ITS | Encounter Summary ---
Author Organization [employer] ([place], [place], [place], [place], [place]) Address [address] [place] [address] Care Team Providers Care Bricklayer Helper Name Role Phone Unavailable Primary Care Provider Unavailabl e Encounter Details Date Type Department Care Team (Late st Contact Info) Description 07/26/2019 Transcribed Document [facility] [place] [address] [place] [address] ProviderSonia MD [address] [place], [place] [address] Social History Tobacco Use Types Packs/Day Years Used Date Smoking Tobacco: Never Assessed Comments Unknown Sex and Gender Information Value Date Recorded Sex Assigned at Not on file Legal Sex Female 1:42 PM CDT Gender Identity Not on file Sexual Orientation Not on file documented as of this encounter Miscellaneous Notes * Cerner Conversion Note - Sonia ProviderMD - 07/26/2019 7:51 PM LAND SURVEYING MANAGER Event Note Entered On: 07/26/2019 19:51 EST Performed On: 07/26/2019 19:51 EST by Maliha Hamilton RN Event Note Event Date/Time : 07/26/2019 18:00 EST Event Location : Assigned room Event Details : Nursing assessment additional narrative Description of Event : Recieved report from NICOLASA Clark Maranda, RN - 07/26/2019 19:51 EST Electronically signed by Raman [facility] Conversion Seed Collector Fela at 11/19/2022 8:22 PM CDT documented in this encounter Plan of Treatment Not on file documented as of this encounter Visit Diagnoses Not on filedocumented in this encounter
--- OUTSIDE RECORDS SUMMARY | 2025-07-20 11:13 | XMS_ITS | Encounter Summary ---
Author Organization [employer] ([place], [place], [place], [place], [place]) Address [address] [place] [address] Care Team Providers Care Creative Art Therapist Name Role Phone Unavailable Primary Care Provider Unavailabl e Encounter Details Date Type Department Care Team (Late st Contact Info) Description 07/26/2019 Transcribed Document [facility] [place] [address] [place] [address] ProviderSonia MD [address] [place], [place] [address] Social History Tobacco Use Types Packs/Day Years Used Date Smoking Tobacco: Never Assessed Comments Unknown Sex and Gender Information Value Date Recorded Sex Assigned at Not on file Legal Sex Female 1:42 PM CDT Gender Identity Not on file Sexual Orientation Not on file documented as of this encounter Miscellaneous Notes * Cerner Conversion Note - Sonia ProviderMD - 07/26/2019 3:24 PM WET END HELPER On Going Discharge Planning Entered On: 07/26/2019 15:40 EST Performed On: 07/26/2019 15:24 EST by NICHOLAS HOGUE, RN-Juvenile Detention OfficerBag Worker Progress Note Discharge Arrangements : Patient Post-Acute Information Patient Name: SANDIE FRANK Gender: Female : 51 Age: 63 Years No Post-Acute Placement(s) Listed No Post-Acute Service(s) Listed No [place] Referral(s) Listed Discharge Options Discussed with Patient : Short term rehabilitation NICHOLAS HOGUE, RN-Juvenile Detention Officer - 07/26/2019 15:24 EST Narrative Progress Note Narrative Progress Note : Received call from Catalian that at [facility] states the pt is declined for acute rehab and they are apprehensive about her coming to [facility] due to her physical level of care. CM relayed this to the pt and spouse and they agree to have the pt referred to the following: [facility], [facility] [place] 2] and [facility]. CM will fu for possible offers. Med list sent to [facility] for review. Historical Progress Note : JAS sent text to Catalina with [facility] this am requesting update on bed availability. She has the pt being reviewed by their physician. CM set ambulance tentatively for tomorrow at 1400. Awaiting word from [facility]. NICHOLAS HOGUE, RN-Juvenile Detention Officer - 07/25/19 15:17:05 CM sent text to Catalina with [facility] this am requesting update on bed availability. She has the pt being reviewed by their physician. CM set ambulance tentatively for tomorrow at 1400. Awaiting word from [facility]. CM updated pt and family. NICHOLAS HOGUE, RN-Juvenile Detention Officer - 07/25/19 15:24:48 07/[address] mrs Frank and she is awake and les shaky today... States she wants to go to rehab for getting strength and balance .. Await [facility] ady ,, She 's had her 3 Midnight stay in hospital .... LAMBERT Steele, RN-Juvenile Detention Officer - 07/24/19 15:20:00 NICHOLAS HOGUE, RN-Juvenile Detention Officer - 07/26/2019 15:24 EST Electronically signed by Raman [facility] Conversion Store Receiver Cerner at 11/19/2022 8:24 PM CDT documented in this encounter Plan of Treatment Not on file documented as of this encounter Visit Diagnoses Not on filedocumented in this encounter
--- OUTSIDE RECORDS SUMMARY | 2025-07-20 11:16 | XMS_ITS | Encounter Summary ---
Author Organization [employer] ([place], [place], [place], [place], [place]) Address [address] [place] [address] Care Team Providers Care Weld Technician Name Role Phone Unavailable Primary Care Provider Unavailabl e Encounter Details Date Type Department Care Team (Late st Contact Info) Description 07/26/2019 Transcribed Document [facility] [place] Family Medicine [address] [place] [address] ProviderSonia MD [address] [place], [place] [id number] Social History Tobacco Use Types Packs/Day Years Used Date Smoking Tobacco: Never Assessed Comments Unknown Sex and Gender Information Value Date Recorded Sex Assigned at Not on file Legal Sex Female 1:42 PM CDT Gender Identity Not on file Sexual Orientation Not on file documented as of this encounter Miscellaneous Notes * Cerner Conversion Note - Sonia ProviderMD - 07/26/2019 2:00 AM FOUR SLIDE OPERATOR Nitroglycerin Supervisor Details Entered On: 07/26/2019 4:47 EST Performed [...] - 07/26/2019 4:46 EST Electronically signed by Raman danya Conversion Medical Numerical Control Operator Cerner at 11/19/2022 8:29 PM CDT documented in this encounter Plan of Treatment Not on file documented as of this encounter Visit Diagnoses Not on filedocumented in this encounter
--- OUTSIDE RECORDS SUMMARY | 2025-07-20 11:17 | XMS_ITS | Encounter Summary ---
Author Organization [facility] Address [address] [place] [address] Care Team Providers Care Postpartum Nurse Name Role Phone Marc Rodriguez MD Primary Care Provider [phone] Encounter Details Date Type Department Care Team (Late st Contact Info) Description 06/23/2019 External CPT II MANAGER PERIOPERATIVE - [facility] Social History Tobacco Use [...] Info) Description 07/25/2025 9:00 AM EST Appointment [facility] [place] [address] [facility] [employer] VD [address] [address] 07/25/2025 12:15 PM EST Appointment [facility]ARD[facility]ASCULAR [facility] [place] [address] [facility] [employer] VD [facility] [address] [place] [address] 07/25/2025 1:45 PM EST Appointment [facility] [place] [address] [facility] [employer] VD [facility] [address] [place] [address] 01/11/2026 9:30 AM EDT Office Visit [facility] PULMONARY & CRITICAL CARE MEDICINE [address] [place] [address] Kaitlin Joiner APRN [address] [place] [address] documented as of this encounter Visit Diagnoses [...] documented as of this encounter Care Teams Postpartum Nurse Relationship Specialty Start Date End Date Marc Rodriguez MD [address] [facility] [address] [facility] [place] [address] PCP - General Adolescent Medicine 12/08/16 documented as of this encounter
--- OUTSIDE RECORDS SUMMARY | 2025-07-20 11:17 | XMS_ITS | Encounter Summary ---
Author Organization [employer] ([place], [place], [place], [place], [place]) Address [address] [place] [address] Care Team Providers Care Production Planning Manager Name Role Phone Unavailable Primary Care Provider Unavailabl e Encounter Details Date Type Department Care Team (Late st Contact Info) Description 08/01/2019 Transcribed Document [facility] [place] Family Medicine [address] [place] [address] ProviderSonia MD [address] [place], [place] [address] Social History Tobacco Use Types Packs/Day Years Used Date Smoking Tobacco: Never Assessed Comments Unknown Sex and Gender Information Value Date Recorded Sex Assigned at Not on file Legal Sex Female 1:42 PM CDT Gender Identity Not on file Sexual Orientation Not on file documented as of this encounter Miscellaneous Notes * Cerner Conversion Note - Sonia ProviderMD - 08/01/2019 2:00 AM COMPOSITION ROOFER Garage Door Hanger Details Entered On: 08/01/2019 4:01 EST Performed [...]
--- OUTSIDE RECORDS SUMMARY | 2025-07-20 11:17 | XMS_ITS | Encounter Summary ---
Author Organization [employer] ([place], [place], [place], [place], [place]) Address [address] [place] [address] Care Team Providers Care Electrician Machine Shop Name Role Phone Unavailable Primary Care Provider Unavailabl e Encounter Details Date Type Department Care Team (Late st Contact Info) Description 07/26/2019 Transcribed Document [facility] [place] [address] [place] [address] ProviderSonia MD [address] [place] [address] Social History Tobacco Use Types Packs/Day Years Used Date Smoking Tobacco: Never Assessed Comments Unknown Sex and Gender Information Value Date Recorded Sex Assigned at Not on file Legal Sex Female 1:42 PM CDT Gender Identity Not on file Sexual Orientation Not on file documented as of this encounter Miscellaneous Notes * Cerner Conversion Note - Sonia ProviderMD - 07/26/2019 6:00 AM BLENDER / COOK Pain Assessment Entered On: 07/26/2019 6:21 EST [...]
--- OUTSIDE RECORDS SUMMARY | 2025-07-20 11:17 | XMS_ITS | Encounter Summary ---
[facility] Organization [facility] Address [address] [place] [address] Care Team Providers Care Brush Painter Name Role Phone Marc Rodriguez MD Primary Care Provider [phone] Encounter Details Date Type Department Care Team (Late st Contact Info) Description 07/15/2019 External CPT II ROLL DOUGH DIVIDER - [facility] Social History Tobacco Use [...] Info) Description 07/25/2025 9:00 AM EST Appointment [facility] [place] [address] [facility] [place] [address] [address] 07/25/2025 12:15 PM EST Appointment [facility] [place] [address] [facility] [place] [address] [facility] [address] [place] [address] 07/25/2025 1:45 PM EST Appointment [facility] [place] [address] [facility] [place] [address] [facility] [address] [place] [address] 01/11/2026 9:30 AM EDT Office Visit [facility] PULMONARY & CRITICAL CARE MEDICINE [address] [place] [address] Kaitlin Joiner APRN [address] [place] [address] documented as of this encounter Visit Diagnoses [...] documented as of this encounter Care Teams Brush Painter Relationship Specialty Start Date End Date Marc Rodriguez MD [address] [facility] [address] [facility] [place] [address] PCP - General Adolescent Medicine 12/08/16 documented as of this encounter
--- OUTSIDE RECORDS SUMMARY | 2025-07-20 11:17 | XMS_ITS | Encounter Summary ---
Author Organization [facility] Address [address] [place] [address] Care Team Providers Care Senior Analyst Programmer Name Role Phone Marc Rodriguez MD Primary Care Provider [phone] Edgardo Zuñiga MD Unavailable [phone] Giulia Briggs Unavailable [phone] Edgardo Zuñiga MD Unavailable [phone] Esther Mathew Unavailable [phone] Reason for Visit * Reason Onset Date Comments Med Refill 03/10/2025 Encounter Details Date Type Department Care Team (Late st Contact Info) Description 03/10/2025 Refill [facility] at [facility] [address] [place] [address] Suzan Galindo DO [address] [facility] [address] [place] [address] Social History Tobacco Use Types [...] S Radiology [address] [place] [address] 09/11/2025 11:50 AM EST Office Visit [facility] [address] [place] [address] Suzan Galindo DO [address] [place] [address] 03/07/2026 9:20 AM EDT Office Visit [facility] Orthopaedic Surgery & Sports Medicine [address] [place] [address] Edgardo Zuñiga MD [address] [place] [address] documented as of this encounter [...] as of this encounter Care Teams Senior Analyst Programmer Relationship Specialty Start Date End Date Marc Rodriguez MD [address] [place], [place] [id number] PCP - General 12/14/20 Edgardo Zuñiga MD [address] [place] [address] Surgeon Neurosurgery 03/04/21 Giulia Briggs PA [address] [place] [address] Physician Ferry Engineer Neurosurgery 07/03/21 Edgardo Zuñiga MD [address] [place] [address] Surgeon Neurosurgery 09/16/21 Esther Mathew PA [address] [place] [address] Physician Ferry Engineer Neurology 11/19/22 documented as of this encounter
--- OUTSIDE RECORDS SUMMARY | 2025-07-20 11:17 | XMS_ITS | Encounter Summary ---
Author Organization [facility] Address [address] [place] [address] Care Team Providers Care Senior Account Director Name Role Phone Marc Rodriguez MD Primary Care Provider [phone] Encounter Details Date Type Department Care Team (Late st Contact Info) Description 05/17/2019 External CPT II COMMERCIAL REAL ESTATE APPRAISER - [facility] Social History Tobacco [...] Info) Description 07/25/2025 9:00 AM EST Appointment [facility] [place] [address] [facility] [place] [address] [address] 07/25/2025 12:15 PM EST Appointment [facility] [place] [address] [facility] [place] [address] [facility] [address] [place] [address] 07/25/2025 1:45 PM EST Appointment [facility] [place] [address] [facility] [place] [address] [facility] [address] [place] [address] 01/11/2026 9:30 AM EDT Office Visit [facility] PULMONARY & CRITICAL CARE MEDICINE [address] [place] [address] Kaitlin Joiner APRN [address] [place] [address] documented as of this encounter Visit Diagnoses [...] as of this encounter Care Teams Senior Account Director Relationship Specialty Start Date End Date Marc Rodriguez MD [address] [facility] [address] [facility] [place] [address] PCP - General Adolescent Medicine 12/08/16 documented as of this encounter
--- OUTSIDE RECORDS SUMMARY | 2025-07-20 11:17 | XMS_ITS | Encounter Summary ---
Author Organization [employer] ([place], [place], [place], [place], [place]) Address [address] [place] [address] Care Team Providers Care Pipe Fittings Molder Name Role Phone Unavailable Primary Care Provider Unavailabl e Encounter Details Date Type Department Care Team (Late st Contact Info) Description 07/22/2019 Transcribed Document [facility] [place] Family Medicine [address] [place] [address] ProviderSonia MD [address] [place] [address] Social History Tobacco Use Types Packs/Day Years Used Date Smoking Tobacco: Never Assessed Comments Unknown Sex and Gender Information Value Date Recorded Sex Assigned at Not on file Legal Sex Female 1:42 PM CDT Gender Identity Not on file Sexual Orientation Not on file documented as of this encounter Miscellaneous Notes * Cerner Conversion Note - Sonia ProviderMD - 07/22/2019 11:20 AM HOME BASED ASSISTANT Pain Assessment Entered On: 07/28/2019 9:52 [...]
--- OUTSIDE RECORDS SUMMARY | 2025-07-20 11:17 | XMS_ITS | Encounter Summary ---
Author Organization [employer] ([place], [place], [place], [place], [place]) Address [address] [place] [address] Care Team Providers Care Shingle Packer Name Role Phone Unavailable Primary Care Provider Unavailabl e Encounter Details Date Type Department Care Team (Late st Contact Info) Description 07/26/2019 Transcribed Document [facility] [place] [address] [place] [address] ProviderSonia MD [address] [place], [place] [address] Social History Tobacco Use Types Packs/Day Years Used Date Smoking Tobacco: Never Assessed Comments Unknown Sex and Gender Information Value Date Recorded Sex Assigned at Not on file Legal Sex Female 1:42 PM CDT Gender Identity Not on file Sexual Orientation Not on file documented as of this encounter Miscellaneous Notes * Cerner Conversion Note - Sonia ProviderMD - 07/26/2019 2:00 PM INSIDE BARREL LATHE OPERATOR Pain Assessment Entered On: 07/26/2019 16:06 EST [...]
--- OUTSIDE RECORDS SUMMARY | 2025-07-20 11:18 | XMS_ITS | Encounter Summary ---
Author Organization [employer] ([place], [place], [place], [place], [place]) Address [address] [place] [address] Care Team Providers Care Plastics Nurse Name Role Phone Unavailable Primary Care Provider Unavailabl e Encounter Details Date Type Department Care Team (Late st Contact Info) Description 08/01/2019 Transcribed Document [facility] [place] Family Medicine [address] [place] [address] ProviderSonia MD [address] [place] [id number] Social History Tobacco Use Types Packs/Day Years Used Date Smoking Tobacco: Never Assessed Comments Unknown Sex and Gender Information Value Date Recorded Sex Assigned at Not on file Legal Sex Female 1:42 PM CDT Gender Identity Not on file Sexual Orientation Not on file documented as of this encounter Miscellaneous Notes * Cerner Conversion Note - Sonia ProviderMD - 08/01/2019 10:00 PM CUSTOMER STRATEGY MANAGER Pain Assessment Entered On: 08/01/2019 23:54 EST [...] form. Electronically signed by Ivelisse Camargo Conversion Powdered Sugar Pulverizer Operator Cerner at 11/19/2022 8:47 PM CDT documented in this encounter Plan of Treatment Not on file documented as of this encounter Visit Diagnoses Not on filedocumented in this encounter
--- OUTSIDE RECORDS SUMMARY | 2025-07-20 11:18 | XMS_ITS | Encounter Summary ---
Author Organization [employer] ([place], [place], [place], [place]) Address [address] [place] [address] Care Team Providers Care Machine Fixer Name Role Phone Unavailable Primary Care Provider Unavailabl e Encounter Details Date Type Department Care Team (Late st Contact Info) Description 08/01/2019 Transcribed Document [facility] [place] Family Medicine [address] [place] [address] ProviderSonia MD [address] [place] [address] Social History Tobacco Use Types Packs/Day Years Used Date Smoking Tobacco: Never Assessed Comments Unknown Sex and Gender Information Value Date Recorded Sex Assigned at Not on file Legal Sex Female 1:42 PM CDT Gender Identity Not on file Sexual Orientation Not on file documented as of this encounter Miscellaneous Notes * Cerner Conversion Note - Sonia ProviderMD - 08/01/2019 2:00 PM DIRECTIONAL DRILL OPERATOR Pain Assessment Entered On: 08/01/2019 15:47 EST [...]
--- OUTSIDE RECORDS SUMMARY | 2025-07-20 11:18 | XMS_ITS | Encounter Summary ---
Author Organization [employer] ([place], [place], [place], [place], [place]) Address [address] [place] [address] Care Team Providers Care Pipe Stress Engineer Name Role Phone Unavailable Primary Care Provider Unavailabl e Encounter Details Date Type Department Care Team (Late st Contact Info) Description 07/22/2019 Transcribed Document [facility] [place] [address] ProviderSonia MD [address] [place] [address] Social History Tobacco Use Types Packs/Day Years Used Date Smoking Tobacco: Never Assessed Comments Unknown Sex and Gender Information Value Date Recorded Sex Assigned at Not on file Legal Sex Female 1:42 PM CDT Gender Identity Not on file Sexual Orientation Not on file documented as of this encounter Miscellaneous Notes * Cerner Conversion Note - Sonia ProviderMD - 07/22/2019 1:36 PM GEOINT ANALYST Patient: SANDIE FRANK Age: 63 Years Sex: Female : 1955 Chief Complaint s/p Right Total Hip Arthroplasty by Dr. Villar. Primary Care Provider LEOPOLDO TEJADA (REF)[facility] History of Present Illness Mrs. Frank is [...] discharge due [facility] her last elective orthopedic shoulder surgery. Time spent: 48 minutes. IMaggi PA-C, personally evaluated the patient. Patient discussed [...] azelastine 205.5 mcg/inh (0.15%) nasal spray 2 Gilbert, PRN, Nasal, BID biotin 5 mg, Oral, [...] 50,000 Int Units = 1 Cap, Oral, N3Rydud Dilaudid donepezil 23 mg, Oral, Daily famotidine [...] Code, Continuous Order Electronically signed by Raman [facility] Conversion Cable Splicer Cerner at 11/19/2022 8:23 PM CDT documented in this encounter Plan of Treatment Not on file documented as of this encounter Visit Diagnoses Not on filedocumented in this encounter
--- OUTSIDE RECORDS SUMMARY | 2025-07-20 11:18 | XMS_ITS | Encounter Summary ---
Author Organization [employer] ([place], [place], [place], [place], [place]) Address [address] [place] [address] Care Team Providers Care Paving Plant Operator Name Role Phone Unavailable Primary Care Provider Unavailabl e Encounter Details Date Type Department Care Team (Late st Contact Info) Description 07/22/2019 Transcribed Document [facility] [place] [address] ProviderSonia MD [address] [place] [phone] Social History Tobacco Use Types Packs/Day Years Used Date Smoking Tobacco: Never Assessed Comments Unknown Sex and Gender Information Value Date Recorded Sex Assigned at Not on file Legal Sex Female 1:42 PM CDT Gender Identity Not on file Sexual Orientation Not on file documented as of this encounter Miscellaneous Notes * Cerner Conversion Note - Sonia ProviderMD - 07/22/2019 1:17 PM PLC PROGRAMMER Treatment Intervention, OT Entered On: 07/23/2019 15:49 [...] Precautions in Place : Fall prevention measures TYRELLARIEL BRINKSTEPHANIE/Cat - 07/23/2019 15:44 EST General Status Patient Received Status : Long sitting in bed Treatment Start Time : 07/23/2019 15:10 EST Patient Left Status : Long sitting in bed RN/PCT Informed Comment : Rn ok'ed. Client agrees to tx. Treatment End Time : 07/23/2019 15:30 EST Treatment Time : 20 Minute(s) Actual Treatment Time : 20 Minute(s) TYRELLQUINCY BRINKSTEPHANIE CARMONA/Cat - 07/23/2019 15:44 EST Self Care/Home Management, OT Self Care/Home Management Comment, OT : max assist with LB self-care TYRELLCUBAPRESTONARIEL, OTR/Cat - 07/23/2019 15:44 EST Functional Mobility Mobility Grid Supine to Sit : Rehab Minimal assistance ARIEL PARK OTR/Cat - 07/23/2019 15:44 EST Cognitive Treatment, OT Orientation : Oriented x 4 TYRELLCUBA ARIEL, OTR/Cat - 07/23/2019 15:44 EST Plan of Care, OT OT Tx Plan/Goals Established w Patient : Yes TYRELLCUBA ARIEL, OTR/Cat - 07/23/2019 15:44 EST Salesperson Furniture Goals, OT Other LTG Grid Goal #1 Goal #2 Goal : pt to perform functional ADL transfer min assist x2 person at rw level and cues pt to perform LB ADL task mod assist using AD PRN Date to Meet : 07/29/2019 EST 07/29/2019 EST Goal Status : Initial goal Initial goal TYRELLCUBA ARIEL, OTR/Cat - 07/23/2019 15:44 EST ARIEL PARK [...] - 07/23/2019 15:44 EST Electronically signed by Raman, [facility] Conversion Mechanical Maintenance Foreman Cerner at 11/21/2022 11:34 AM CDT documented in this encounter Plan of Treatment Not on file documented as of this encounter Visit Diagnoses Not on filedocumented in this encounter
--- OUTSIDE RECORDS SUMMARY | 2025-07-20 11:19 | XMS_ITS | Encounter Summary ---
Author Organization [employer] ([place], [place], [place], [place]) Address [address] [place] [address] Care Team Providers Care Nurse Informatics Educator Name Role Phone Unavailable Primary Care Provider Unavailabl e Encounter Details Date Type Department Care Team (Late st Contact Info) Description 07/22/2019 Transcribed Document [facility] [place] Family Medicine [address] [place] [address] ProviderSonia MD [address] [place], [place] [address] Social History Tobacco Use Types Packs/Day Years Used Date Smoking Tobacco: Never Assessed Comments Unknown Sex and Gender Information Value Date Recorded Sex Assigned at Not on file Legal Sex Female 1:42 PM CDT Gender Identity Not on file Sexual Orientation Not on file documented as of this encounter Miscellaneous Notes * Cerner Conversion Note - Sonia ProviderMD - 07/22/2019 6:29 AM ALLERGY NURSE Pre Procedure Adult Entered On: 07/22/2019 6:33 EST Performed On: 07/22/2019 6:29 EST by NABEEL FABIAN RN Height and Weight, Clinical Dosing Height Source : Stated Height Entry Format : Clune Height, Feet : 5 ft(Converted to: 152 cm, 60 Inch) Height, Inches : 7 Inch(Converted to: 0 ft 7 Inch, 17.78 cm) Clinical Height : 170.18 cm Weight Source : Standing scale Weight Entry Format : Clune Clinical Dosing Weight : 104.55 kg Weight, Pounds : 230 lb Body Surface Area (BSA) : 2.15 m2 Body Mass Index : 36.1 kg/m2 (HI) Stanford Body Weight : 61 kg NABEEL FABIAN [...] NABEEL FABIAN RN - 07/22/2019 6:51 EST Arnold Suicide Severity Rating Scale (C-SSRS) CSSRS Past [...] EST Legal Guardian : No Support Person/Patient Special Education Professor : Yes Support Person/Pt Rep Name : spouse Jose Frank Contact Password : [email or web address] Support Person/Pt Rep Contact Information : [phone] Want Family/Rep/Phys Notified of Admit : No Emergency Contact #1 : Jose Emergency Contact # Emergency Contact #1 Relationship : spouse Emergency Contact #2 : - Emergency Contact #2 Phone Number : - Emergency Contact #2 Relationship : - Information Obtained From : Patient Primary Language : Cymro Preferred Communication Mode : Verbal Communication Barrier [...] Level : 46 or > High Risk [place] Fall Interventions : Adequate lighting, Assistive devices [...] rendition version of the form. Roxanne Coma Lugoff Best Motor Response : Obey commands Roxanne Best Verbal Response : Oriented Lugoff Eye Opening Response : Spontaneous Lugoff Coma Score : 15 NABEEL FABIAN RN - 07/22/2019 6:29 EST Electronically signed by Raman [facility] Conversion Railroad Police Officer Cerner at 11/19/2022 8:27 PM CDT documented in this encounter Plan of Treatment Not on file documented as of this encounter Visit Diagnoses Not on filedocumented in this encounter
--- OUTSIDE RECORDS SUMMARY | 2025-07-20 11:19 | XMS_ITS | Encounter Summary ---
Author Organization [employer] ([place], [place], [place], [place], [place]) Address [address] [place] [address] Care Team Providers Care Machine Buffer Name Role Phone Unavailable Primary Care Provider Unavailabl e Encounter Details Date Type Department Care Team (Late st Contact Info) Description 08/02/2019 Transcribed Document [facility] [place] [facility] [place] [address] ProviderSonia MD [address] [place], [place] [phone] Social History Tobacco Use Types Packs/Day Years Used Date Smoking Tobacco: Never Assessed Comments Unknown Sex and Gender Information Value Date Recorded Sex Assigned at Not on file Legal Sex Female 1:42 PM CDT Gender Identity Not on file Sexual Orientation Not on file documented as of this encounter Miscellaneous Notes * Cerner Conversion Note - Sonia Boogie MD - 08/02/2019 10:36 AM MARKET SURVEY REPRESENTATIVE Patient Education Materials Follows: What to expect [...] Barley. Bulgur wheat. Millet. Bran muffins. Popcorn. Tamiment wafer crackers. Vegetables Sweet potatoes. Spinach. Kale. Artichokes. Cabbage. Broccoli. Green peas. Carrots. Squash. Fruits Berries. Pears. Apples. Oranges. Avocados. Prunes and raisins. Dried figs. Meats and Other Protein Sources Rapelje, kidney, roland, and soy beans. Split peas. [...] lolis has 11 g of protein. ?? Cherry seeds - 1 oz has 5.5 g [...] floor. ?? Place frequently used items in [id number] places ?? Keep electrical cables out of [...] ?? Using the bathroom. ?? Using household manager strategic development or toxic chemicals. ?? Touching or taking [...]
--- OUTSIDE RECORDS SUMMARY | 2025-07-20 11:19 | XMS_ITS | Encounter Summary ---
Author Organization [employer] ([place], [place], [place], [place], [place]) Address [address] [place] [address] Care Team Providers Care Arboriculture Teacher Name Role Phone Unavailable Primary Care Provider Unavailabl e Encounter Details Date Type Department Care Team (Late st Contact Info) Description 07/22/2019 Transcribed Document [facility] [place] [address] [place] [address] ProviderSonia MD [address] [place], [place] [address] Social History Tobacco Use Types Packs/Day Years Used Date Smoking Tobacco: Never Assessed Comments Unknown Sex and Gender Information Value Date Recorded Sex Assigned at Not on file Legal Sex Female 1:42 PM CDT Gender Identity Not on file Sexual Orientation Not on file documented as of this encounter Miscellaneous Notes * Cerner Conversion Note - Sonia Boogie MD - 07/22/2019 8:11 AM FERTILIZER MIXER [facility] [place] Main OR PACU Summary Primary Physician: PEE VILLAR MD-ORT Finalized Date/Time: 07/22/19 13:31:44 Pt. Name: PREM SANDIEIsael Whaley D.O.B./Sex: 1955 Female Med Rec #: [id number] Physician: PEE VILLAR MD-ORT Financial #: [id number] Pt. Type: I Room/Bed: 516/1 Admit/Disch: 07/22/19 04:50:00 - Institution: [facility] OR PACU Case Times Entry 1 In PACU I 07/22/19 09:39:00 Ready for PACU 07/22/19 11:35:00 Discharge Discharge from PACU 07/22/19 11:45:00 I Last Modified By: Lauren Cohen RN 07/22/19 13:31:42 [facility] Main OR PACU Case Times Audit 07/22/19 13:31:42 Textile Stylist: MISAEL Modifier: HELFEP <+> 1 Discharge from PACU I Finalized By: Lauren Cohen, RN Document Signatures Signed By: Lauren Cohen RN 07/22/19 13:31 Electronically signed by Raman [facility] Conversion Senior Production Supervisor Cerner at 11/19/2022 8:29 PM CDT documented in this encounter Plan of Treatment Not on file documented as of this encounter Visit Diagnoses Not on filedocumented in this encounter
--- OUTSIDE RECORDS SUMMARY | 2025-07-20 11:19 | XMS_ITS | Encounter Summary ---
Author Organization [employer] ([place], [place], [place], [place], [place]) Address [address] [place] [address] Care Team Providers Care Animal [facility] Office Supervisor Name Role Phone Unavailable Primary Care Provider Unavailabl e Encounter Details Date Type Department Care Team (Late st Contact Info) Description 07/22/2019 Transcribed Document [facility] [place] [facility] [place] [address] ProviderSonia MD [facility] [place], [place] [address] Social History Tobacco Use Types Packs/Day Years Used Date Smoking Tobacco: Never Assessed Comments Unknown Sex and Gender Information Value Date Recorded Sex Assigned at Not on file Legal Sex Female 1:42 PM CDT Gender Identity Not on file Sexual Orientation Not on file documented as of this encounter Miscellaneous Notes * Cerner Conversion Note - Sonia Boogie MD - 07/22/2019 11:57 AM CLINICAL PSYCHIATRIST Admission History, Adult Entered On: 07/22/2019 12:03 [...] Spouse Legal Guardian : No Support Person/Patient Well Control Instructor : Yes Support Person/Pt Rep Name : spouse Jose Frank Contact Password : [email or web address] Support Person/Pt Rep Contact Information : [phone] Want Family/Rep/Phys Notified of Admit : No Emergency Contact #1 : Jose Emergency Contact # Emergency Contact #1 Relationship : spouse Emergency Contact #2 : -Angeline Emergency Contact #2 Phone Number : -[phone] Emergency Contact #2 Relationship : -daughter Information Obtained From : Patient, Spouse Primary Language : Fijian Preferred Communication Mode : Verbal Communication Barrier [...] Level : 46 or > High Risk [place] Fall Interventions : Adequate lighting, Bed in [...] Source : Stated Height Entry Format : Freestone Height, Feet : 5 ft(Converted to: 152 cm, 60 Inch) Height, Inches : 7 Inch(Converted to: 0 ft 7 Inch, 17.78 cm) Clinical Height : 170.18 cm Weight Source : Standing scale Weight Entry Format : Freestone Clinical Dosing Weight : 104.55 kg Weight, Pounds : 230 lb Body Surface Area (BSA) : 2.15 m2 Body Mass Index : 36.1 kg/m2 (HI) [place] Body Weight : 61 kg Aimee Willis [...] Aimee Willis RN - 07/22/2019 11:57 EST Casey Suicide Severity Rating Scale (C-SSRS) CSSRS Past [...] 07/22/2019 11:57 EST Electronically signed by Raman, Ivelisse Conversion Solidworks Mechanical Designer Cerner at 11/19/2022 8:29 PM CDT documented in this encounter Plan of Treatment Not on file documented as of this encounter Visit Diagnoses Not on filedocumented in this encounter
--- OUTSIDE RECORDS SUMMARY | 2025-07-20 11:19 | XMS_ITS | Encounter Summary ---
Author Organization [employer] ([place], [place], [place], [place], [place]) Address [address] [place] [address] Care Team Providers Care Fisher Scallop Name Role Phone Unavailable Primary Care Provider Antonio e Encounter Details Date Type Department Care Team (Late st Contact Info) Description 07/22/2019 Transcribed Document [facility] [place] [facility] [place] [address] ProviderSonia MD [facility] [place] [address] Social History Tobacco Use Types Packs/Day Years Used Date Smoking Tobacco: Never Assessed Comments Unknown Sex and Gender Information Value Date Recorded Sex Assigned at Not on file Legal Sex Female 1:42 PM CDT Gender Identity Not on file Sexual Orientation Not on file documented as of this encounter Miscellaneous Notes * Cerner Conversion Note - Sonia Boogie MD - 07/22/2019 2:01 PM DISC PAD PLATE FILLER Patient: SANDIE FRANK Age: 63 years Sex: [...] azelastine 205.5 mcg/inh (0.15%) nasal spray 2 [place], PRN, Nasal, BID biotin 5 mg, Oral, [...] 50,000 Int Units = 1 Cap, Oral, [id number] Dilaudid donepezil 23 mg, Oral, Daily famotidine [...] meropenem None Documented Thanks, Bulmaro Elizondo, PharmD #[id number] Electronically signed by [facility] Sjh Conversion Rail Car Mechanic Cerner at 11/19/2022 8:26 PM CDT documented in this encounter Plan of Treatment Not on file documented as of this encounter Visit Diagnoses Not on filedocumented in this encounter
--- OUTSIDE RECORDS SUMMARY | 2025-07-20 11:19 | XMS_ITS | Encounter Summary ---
Author Organization [employer] ([place], [place], [place], [place], [place]) Address [address] [place] [address] Care Team Providers Care Morphologist Name Role Phone Unavailable Primary Care Provider Unavailabl e Encounter Details Date Type Department Care Team (Late st Contact Info) Description 08/02/2019 Transcribed Document [facility] [place] Family Medicine [address] [place] [address] ProviderSonia MD [address] [place] [id number] Social History Tobacco Use Types Packs/Day Years Used Date Smoking Tobacco: Never Assessed Comments Unknown Sex and Gender Information Value Date Recorded Sex Assigned at Not on file Legal Sex Female 1:42 PM CDT Gender Identity Not on file Sexual Orientation Not on file documented as of this encounter Miscellaneous Notes * Cerner Conversion Note - Sonia ProviderMD - 08/02/2019 6:00 AM COLLEGE DEAN Pain Assessment Entered On: 08/02/2019 6:53 EST [...]
--- OUTSIDE RECORDS SUMMARY | 2025-07-20 11:19 | XMS_ITS | Encounter Summary ---
Author Organization [employer] ([place], [place], [place], [place], [place]) Address [address] [place] [address] Care Team Providers Care Mail Messenger Contractor Name Role Phone Unavailable Primary Care Provider Unavailabl e Encounter Details Date Type Department Care Team (Late st Contact Info) Description 08/02/2019 Transcribed Document [facility] [place] [address] [place] [address] ProviderSonia MD [address] [place], [place] [address] Social History Tobacco Use Types Packs/Day Years Used Date Smoking Tobacco: Never Assessed Comments Unknown Sex and Gender Information Value Date Recorded Sex Assigned at Not on file Legal Sex Female 1:42 PM CDT Gender Identity Not on file Sexual Orientation Not on file documented as of this encounter Miscellaneous Notes * Cerner Conversion Note - Sonia Boogie MD - 08/02/2019 10:41 AM BUILDING EQUIPMENT INSPECTOR Final Discharge Planning Entered On: 08/02/2019 10:49 EST Performed On: 08/02/2019 10:41 EST by NICHOLAS HOGUE, RN-Tile Picker Final Discharge Planning Discharge Arrangements : Patient [...] : IRF -Inpatient Rehabilitation Facility-[facility] NICHOLAS HOGUE, RN-Tile Picker - 08/02/2019 10:41 EST Final Narrative Note Final Narrative Note : Received call from Ann who states the pt has a bed on [facility] today in acute in-pt rehab. No choice form need be signed as this is the only facility that provides this level of care in [place]. IM was reviewed with pt and spouse and after discussion with PT, determination was made that pt is able to be transferred by private vehicle with stand pivot with gait belt into and out of vehicle. Her spouse is agreeable to transport the pt to [facility]. CM notified the bedside RN and the physician, Dr. Waterman. CM will fax d/c summary when available. No further d/c needs identified. NICHOLAS HOGUE, RN-Tile Picker - 08/02/2019 10:41 EST Electronically signed by [facility] Conversion Hospice Liaison Cerner at 11/19/2022 8:37 PM CDT documented in this encounter Plan of Treatment Not on file documented as of this encounter Visit Diagnoses Not on filedocumented in this encounter
--- OUTSIDE RECORDS SUMMARY | 2025-07-20 11:19 | XMS_ITS | Encounter Summary ---
Author Organization [employer] ([place], [place], [place], [place], [place]) Address [address] [place] [address] Care Team Providers Care Web Services Developer Name Role Phone Unavailable Primary Care Provider Unavailabl e Encounter Details Date Type Department Care Team (Late st Contact Info) Description 08/01/2019 Transcribed Document [facility] [place] [address] [place] [address] ProviderSonia MD [address] [place], [place] [address] Social History Tobacco Use Types Packs/Day Years Used Date Smoking Tobacco: Never Assessed Comments Unknown Sex and Gender Information Value Date Recorded Sex Assigned at Not on file Legal Sex Female 1:42 PM CDT Gender Identity Not on file Sexual Orientation Not on file documented as of this encounter Miscellaneous Notes * Cerner Conversion Note - Sonia ProviderMD - 08/01/2019 5:00 PM LINK TRAINER Chart Check - Review Order Profile Entered [...]
--- OUTSIDE RECORDS SUMMARY | 2025-07-20 11:19 | XMS_ITS | Encounter Summary ---
Author Organization [employer] ([place], [place], [place], [place], [place]) Address [address] [place] [address] Care Team Providers Care Medical Services Coordinator Name Role Phone Unavailable Primary Care Provider Unavailabl e Encounter Details Date Type Department Care Team (Late st Contact Info) Description 08/02/2019 Transcribed Document [facility] [place] [address] [place] [address] ProviderSonia MD [address] [place], [place] [address] Social History Tobacco Use Types Packs/Day Years Used Date Smoking Tobacco: Never Assessed Comments Unknown Sex and Gender Information Value Date Recorded Sex Assigned at Not on file Legal Sex Female 1:42 PM CDT Gender Identity Not on file Sexual Orientation Not on file documented as of this encounter Miscellaneous Notes * Cerner Conversion Note - Historical ProviderMD - 08/02/2019 11:31 AM MASTERCAM PROGRAMMER Discharge Summary, OT Entered On: 08/02/2019 11:32 EST Performed On: 08/02/2019 11:31 EST by CAM KELLY OTR/L Discharge Summary, OT Reason for Discharge : Discharged from hospital CAM KELLY OTR/L - 08/02/2019 11:31 EST Discharge Summary Comment, OT : per case mgt pt has been approved [facility] for further rehab from which she will benefit from continued OT, remaining goals not met per eval however progressing daily toward goals and motivated CAM KELLY OTR/L - 08/02/2019 11:32 EST Electronically signed by Ivelisse Camargo Conversion Water Resources Project Manager Cerner at 11/19/2022 8:28 PM CDT documented in this encounter Plan of Treatment Not on file documented as of this encounter Visit Diagnoses Not on filedocumented in this encounter
--- OUTSIDE RECORDS SUMMARY | 2025-07-20 11:19 | XMS_ITS | Encounter Summary ---
Author Organization [employer] ([place], [place], [place], [place], [place]) Address [address] [place] [address] Care Team Providers Care Advisory Internship Name Role Phone Unavailable Primary Care Provider Unavailabl e Encounter Details Date Type Department Care Team (Late st Contact Info) Description 07/22/2019 Transcribed Document [facility] [place] [address] [place] [address] ProviderSonia MD [facility] [place] [place], [place] [address] Social History Tobacco Use Types Packs/Day Years Used Date Smoking Tobacco: Never Assessed Comments Unknown Sex and Gender Information Value Date Recorded Sex Assigned at Not on file Legal Sex Female 1:42 PM CDT Gender Identity Not on file Sexual Orientation Not on file documented as of this encounter Miscellaneous Notes * Cerner Conversion Note - Sonia ProviderMD - 07/22/2019 11:20 AM RIBBON HAND Evaluation, Physical Therapy Entered On: 07/22/2019 13:23 EST Performed On: 07/22/2019 12:27 EST by OCOPER DEVLIN Physical Therapist General Information, PT Visit [...] WFL Left LE Strength : WFL COOPER DEVLIN Physical Therapist [...] be a good candidate for rehab at [facility] ([facility]3]. COOPER DEVLIN Physical Therapist - 07/22/2019 13:01 EST Signal Timer Goals Other PT LTG Grid Goal #1 Goal #2 Goal #3 Goal #4 Other : Pt will participate in therapeutic exercise training and be issued a written HEP in order to increase strength for improved gait and provide carryover into the home environment. Pt will transfer sup/sit and sit/stand with RWx and no more than Ankita to increase safety for mobility at [facility]3]. Pt will amb at leats 25 feet [...] DEVLIN, Physical Therapist - 07/22/2019 13:01 COOPER COATES Physical Therapist - 07/22/2019 13:01 EST COOPER DEVLIN Physical Therapist - 07/22/2019 13:01 EST Treatment [...] the text rendition version of the form. [place] PT Charges PT Ther Activities Ea 15 Min : 1 PT Eval Low Complexity : 1 COOPER DEVLIN Physical Therapist - 07/22/2019 13:01 EST documented in this encounter Plan of Treatment Not on file documented as of this encounter Visit Diagnoses Not on filedocumented in this encounter
--- OUTSIDE RECORDS SUMMARY | 2025-07-20 11:20 | XMS_ITS | Encounter Summary ---
Author Organization [email or web address] ([place], [place], [place], [place], [place]) Address [address] [place] [address] Care Team Providers Care Biomedical Service Engineer Name Role Phone Unavailable Primary Care Provider Unavailabl e Encounter Details Date Type Department Care Team (Late st Contact Info) Description 07/31/2019 Transcribed Document [facility] Radiology [address] [place] [address] Diaz Vega MD [address] [place], [place] [address] Social History Tobacco Use Types Packs/Day Years Used Date Smoking Tobacco: Never Assessed Comments Unknown Sex and Gender Information Value Date Recorded Sex Assigned at Not on file Legal Sex Female 1:42 PM CDT Gender Identity Not on file Sexual Orientation Not on file documented as of this encounter Miscellaneous Notes * Cerner Conversion Note - iDaz Vega MD - 07/31/2019 11:19 AM EST [...] hx cataract surgery bilateral / SNOMED CT 0462413098 / Confirmed high blood pressure / SNOMED CT 3258268438 / Confirmed uses Renexa / SNOMED CT 6526536 / Confirmed hx. chest pain / SNOMED CT 6424875652 / Confirmed high cholesterol / SNOMED CT 69177858 / Confirmed hx colon resection secondary decreased function / SNOMED CT 5782439298 / Confirmed chronic diarrhea / SNOMED CT 572396130 / Confirmed GERD / SNOMED CT 779611353 / Confirmed kidney stone right kidney current and hx / SNOMED CT 841242418 / Confirmed hx. frequent UTIs / SNOMED CT 4410010234 / Confirmed restless leg syndrome / SNOMED CT 70989180 / Confirmed chronic back pain / SNOMED CT 236106469 / Confirmed fibromyalgia / SNOMED CT 53124808 / Confirmed rheumatoid arthritis / SNOMED CT 228803715 / Confirmed Hypothyroidism / SNOMED CT 69113691 / Confirmed depression / SNOMED CT 28466071 / Confirmed migraine headaches / SNOMED CT 440509607 / Confirmed peripheral neuropathy / SNOMED CT 86140322 / Confirmed chronic hydrocort use / SNOMED CT 3108374 / Confirmed Adrenal insufficiency / SNOMED CT 9483744593 / Confirmed Arthritis / SNOMED CT 7003204 / Confirmed Aortic valve stenosis / SNOMED CT 180719620 / Confirmed At risk for sleep apnea / IMO 66445578 / Confirmed Glaucoma / SNOMED CT 53514147 / Confirmed Cataracts, both eyes / SNOMED CT 469195424 / Confirmed Osteoporosis / SNOMED CT 485287931 / Confirmed Seasonal allergies / SNOMED CT 4673205194 / Confirmed Asthma / SNOMED CT 764957504 / Confirmed Vitamin D deficiency / SNOMED CT 94534694 / Confirmed Dementia / SNOMED CT 31201511 / Confirmed Chronic kidney disease / SNOMED CT 2897292259 / Confirmed B12 deficiency / SNOMED CT 333595292 / Confirmed Pneumonia / SNOMED CT 385068462 / Confirmed Resolved: Hypotension / SNOMED CT 33300971 Canceled: adrenal insufficiency / SNOMED CT 9477521696 Canceled: Hyperthyroidism / SNOMED CT 02093KDN-[id number], Active Problems (33) Adrenal insufficiency Aortic valve [...] mg, Rectal, 1-Time, PRN: Constipation Flonase: 1 [place], Nostrils Both, BID Florastor: 250 mg, Oral, [...] intl units oral capsule: 1 Cap, Oral, G8Cpcvg, 0 Refill(s) Dilaudid: pain pump, 0 Refill(s) Flax Seed Oil: 1,200 mg, Oral, BID, 0 Refill(s) Flonase: 1 [place], Nostrils Both, BID Lunesta: 3 mg, Oral, [...] azelastine 205.5 mcg/inh (0.15%) nasal spray: 2 [place], Nasal, BID, PRN: for allergy symptoms, 0 [...] azelastine 205.5 mcg/inh (0.15%) nasal spray 2 [place], PRN, Nasal, BID biotin 5 mg, Oral, [...] 50,000 Int Units = 1 Cap, Oral, F0[place] Dilaudid donepezil 23 mg, Oral, Daily famotidine 40 mg, Oral, BID Flax Seed Oil 1,200 mg, Oral, BID Flonase 1 [place], Nostrils Both, BID gabapentin 100 mg oral [...] Oral, QAM fluticasone 0.05% nasal spray 1 [place], Nostrils Both, BID gabapentin 100 mg cap [...]
--- OUTSIDE RECORDS SUMMARY | 2025-07-20 11:20 | XMS_ITS | Encounter Summary ---
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 NON[facility] [place] [address] [facility] [employer] VD [address] [address] 07/25/2025 12:15 PM EST Appointment [facility] CARDIOVASCULAR LAB [place] [address] [facility] [employer] VD [facility] [address] [place] [address] 07/25/2025 1:45 PM EST Appointment [facility] CARDI[facility] LAB [place] [address] [facility] [employer] VD [facility] [address] [place] [address] 01/11/2026 9:30 AM EDT Office Visit [facility] PULMONARY [facility]ARE MEDICINE [address] [place] [id number] Kaitlin Joiner APRN [address] [place] [address] documented as of this encounter Visit Diagnoses [...] documented as of this encounter Care Teams Bridge Crew Member Relationship Specialty Start Date End Date Marc Rodriguez MD [address] [facility] [address] [address] PCP - General Adolescent Medicine 12/08/16 documented as of this encounter
--- OUTSIDE RECORDS SUMMARY | 2025-07-20 11:20 | XMS_ITS | Encounter Summary ---
Author Organization [employer] ([place], [place], [place], [place], [place]) Address [address] [place] [address] Care Team Providers Care Activity Leader Name Role Phone Unavailable Primary Care Provider Unavailabl e Encounter Details Date Type Department Care Team (Late st Contact Info) Description 07/11/2019 Transcribed Document [facility] [place] Family Medicine [address] [place] [address] ProviderSonia MD [address] [place] [address] Social History Tobacco Use Types Packs/Day Years Used Date Smoking Tobacco: Never Assessed Comments Unknown Sex and Gender Information Value Date Recorded Sex Assigned at Not on file Legal Sex Female 1:42 PM CDT Gender Identity Not on file Sexual Orientation Not on file documented as of this encounter Miscellaneous Notes * Cerner Conversion Note - Sonia ProviderMD - 07/11/2019 12:58 PM NATURAL GAS TREATING UNIT OPERATOR Orthopedic Nurse Navigator Entered On: 07/11/2019 12:58 EST Performed On: 07/11/2019 12:58 EST by Ana Call Nurse fire fighter Nurse Navigator Assessment Joint Navigator Assessment Note : Pt mentioned she spoke with about possible rehab. Ana Call Nurse RN - 07/11/2019 12:58 EST Electronically signed by Ivelisse Camargo Conversion Filing And Polishing Supervisor Cerner at 11/19/2022 8:30 PM CDT documented in this encounter Plan of Treatment Not on file documented as of this encounter Visit Diagnoses Not on filedocumented in this encounter
--- OUTSIDE RECORDS SUMMARY | 2025-07-20 11:20 | XMS_ITS | Encounter Summary ---
Author Organization [employer] ([place], [place], [place], [place], [place]) Address [address] [place] [address] Care Team Providers Care Tool Design Drafter Name Role Phone Unavailable Primary Care Provider Unavailabl e Encounter Details Date Type Department Care Team (Late st Contact Info) Description 07/31/2019 Transcribed Document [facility] [place] [address] [place] [address] ProviderSonia MD [address] [place] [address] Social History Tobacco Use Types Packs/Day Years Used Date Smoking Tobacco: Never Assessed Comments Unknown Sex and Gender Information Value Date Recorded Sex Assigned at Not on file Legal Sex Female 1:42 PM CDT Gender Identity Not on file Sexual Orientation Not on file documented as of this encounter Miscellaneous Notes * Cerner Conversion Note - Sonia Boogie MD - 07/31/2019 6:00 AM AGRONOMY TECHNICIAN Pain Assessment Entered On: 07/31/2019 8:48 EST Performed On: 07/31/2019 9:10 EST by Trina Adorno RN Intervention Information: acetaminophen Performed by Cathie Lundy RN on 07/31/2019 08:10:00 EST acetaminophen,1000mg Oral Pain Assessment Pain Assessment : Follow-up assessment Pain Scale Goal : 5 Pain Improved by Intervention : Yes Trina Adorno RN - 07/31/2019 8:48 EST Electronically signed by Ivelisse Camargo Conversion Long Distance Billing Operator Cerner at 11/19/2022 8:34 PM CDT documented in this encounter Plan of Treatment Not on file documented as of this encounter Visit Diagnoses Not on filedocumented in this encounter
--- OUTSIDE RECORDS SUMMARY | 2025-07-20 11:20 | XMS_ITS | Encounter Summary ---
Author Organization [employer] ([place], [place], [place], [place], [place]) Address [address] [place] [address] Care Team Providers Care Wood Heel Back Liner Name Role Phone Unavailable Primary Care Provider Unavailabl e Encounter Details Date Type Department Care Team (Late st Contact Info) Description 07/11/2019 Transcribed Document [facility] [place] [address] [place] [address] ProviderSonia MD [address] [place], [place] [address] Social History Tobacco Use Types Packs/Day Years Used Date Smoking Tobacco: Never Assessed Comments Unknown Sex and Gender Information Value Date Recorded Sex Assigned at Not on file Legal Sex Female 1:42 PM CDT Gender Identity Not on file Sexual Orientation Not on file documented as of this encounter Miscellaneous Notes * Cerner Conversion Note - Sonia Boogie MD - 07/11/2019 12:38 PM DIELECTRIC TESTING MACHINE OPERATOR Total Joints Assessment Entered On: 07/11/2019 12:43 EST Performed On: 07/11/2019 12:38 EST by Ana Call Nurse RN HOOS, JR. Hip Survey 1. Going up or down stairs : Severe 2. Walking on an uneven surface : Severe 3. Rising from sitting : Severe 4. Bending to floor/fiber picker an object : Severe 5. Lying [...]
--- OUTSIDE RECORDS SUMMARY | 2025-07-20 11:20 | XMS_ITS | Encounter Summary ---
Author Organization [employer] ([place], [place], [place], [place], [place]) Address [address] [place] [address] Care Team Providers Care Picker Box Operator Name Role Phone Unavailable Primary Care Provider Unavailabl e Encounter Details Date Type Department Care Team (Late st Contact Info) Description 07/31/2019 Transcribed Document [facility] [place] [address] [place] [address] ProviderSonia MD [address] [place], [place] [address] Social History Tobacco Use Types Packs/Day Years Used Date Smoking Tobacco: Never Assessed Comments Unknown Sex and Gender Information Value Date Recorded Sex Assigned at Not on file Legal Sex Female 1:42 PM CDT Gender Identity Not on file Sexual Orientation Not on file documented as of this encounter Miscellaneous Notes * Cerner Conversion Note - Sonia ProviderMD - 07/31/2019 10:00 PM LOADING MACHINE OPERATOR HELPER Pain Assessment Entered On: 08/01/2019 4:00 [...]
--- OUTSIDE RECORDS SUMMARY | 2025-07-20 11:20 | XMS_ITS | Encounter Summary ---
Author Organization [employer] ([place], [place], [place], [place], [place]) Address [address] [place] [address] Care Team Providers Care General Production Laborer Name Role Phone Unavailable Primary Care Provider Unavailabl e Encounter Details Date Type Department Care Team (Late st Contact Info) Description 07/08/2019 Transcribed Document [facility] [place] [facility] [place] [address] ProviderSonia MD [address] [place] [address] Social History Tobacco Use Types Packs/Day Years Used Date Smoking Tobacco: Never Assessed Comments Unknown Sex and Gender Information Value Date Recorded Sex Assigned at Not on file Legal Sex Female 1:42 PM CDT Gender Identity Not on file Sexual Orientation Not on file documented as of this encounter Miscellaneous Notes * Cerner Conversion Note - Sonia Boogie MD - 07/08/2019 10:11 AM JIG WORKER Patient: SANDIE FRANK Age: 63 Years Sex: Female : 1955 Chief Complaint Right Hip Pain Primary Care Provider LEOPOLDO TEJADA (REF)[facility] History of Present Illness This patient [...] azelastine 205.5 mcg/inh (0.15%) nasal spray 2 [place], PRN, Nasal, BID biotin 5 mg, Oral, [...] 50,000 Int Units = 1 Cap, Oral, [id number] Dilaudid donepezil 23 mg, Oral, Daily famotidine [...]
--- OUTSIDE RECORDS SUMMARY | 2025-07-20 11:20 | XMS_ITS | Encounter Summary ---
Author Organization [employer] ([place], [place], [place], [place], [place]) Address [address] [place] [address] Care Team Providers Care Hplc Chemist Name Role Phone Unavailable Primary Care Provider Unavailabl e Encounter Details Date Type Department Care Team (Late st Contact Info) Description 07/22/2019 Transcribed Document [facility] [place] Family Medicine [address] [place] [address] ProviderSonia MD [address] [place] [id number] Social History Tobacco Use Types Packs/Day Years Used Date Smoking Tobacco: Never Assessed Comments Unknown Sex and Gender Information Value Date Recorded Sex Assigned at Not on file Legal Sex Female 1:42 PM CDT Gender Identity Not on file Sexual Orientation Not on file documented as of this encounter Miscellaneous Notes * Cerner Conversion Note - Sonia Boogie MD - 07/22/2019 11:20 AM MARKET RESEARCH EXECUTIVE Pain Assessment Entered On: 07/23/2019 12:22 EST [...]
--- OUTSIDE RECORDS SUMMARY | 2025-07-20 11:20 | XMS_ITS | Encounter Summary ---
Author Organization [employer] ([place], [place], [place], [place], [place]) Address [address] [place] [address] Care Team Providers Care Supervisor Jewelry Department Name Role Phone Unavailable Primary Care Provider Unavailabl e Encounter Details Date Type Department Care Team (Late st Contact Info) Description 07/22/2019 Transcribed Document [facility] [place] [facility] [place] [address] ProviderSonia MD [address] [place] [address] Social History Tobacco Use Types Packs/Day Years Used Date Smoking Tobacco: Never Assessed Comments Unknown Sex and Gender Information Value Date Recorded Sex Assigned at Not on file Legal Sex Female 1:42 PM CDT Gender Identity Not on file Sexual Orientation Not on file documented as of this encounter Miscellaneous Notes * Cerner Conversion Note - Sonia Boogie MD - 07/22/2019 8:36 AM TRUCK SPOTTER Patient: SANDIE FRANK Age: 63 Years Sex: [...] azelastine 205.5 mcg/inh (0.15%) nasal spray 2 [place], PRN, Nasal, BID biotin 5 mg, Oral, [...] 50,000 Int Units = 1 Cap, Oral, [id number] donepezil 23 mg, Oral, Daily famotidine 40 [...]
--- OUTSIDE RECORDS SUMMARY | 2025-07-20 11:20 | XMS_ITS | Encounter Summary ---
Author Organization [employer] ([place], [place], [place], [place], [place]) Address [address] [place] [address] Care Team Providers Care Bundle Tier And Labeler Name Role Phone Unavailable Primary Care Provider Unavailabl e Encounter Details Date Type Department Care Team (Late st Contact Info) Description 07/22/2019 Transcribed Document [facility] [place] [place] [address] [place] [address] ProviderSonia MD [address] [place], [place] [address] Social History Tobacco Use Types Packs/Day Years Used Date Smoking Tobacco: Never Assessed Comments Unknown Sex and Gender Information Value Date Recorded Sex Assigned at Not on file Legal Sex Female 1:42 PM CDT Gender Identity Not on file Sexual Orientation Not on file documented as of this encounter Miscellaneous Notes * Cerner Conversion Note - Sonia ProviderMD - 07/22/2019 1:27 PM PURSE SEINING HAND Treatment Intervention, PT Entered On: 07/27/2019 11:17 [...] : Occupational Therapist Assisted by, PT : technical agronomist/aide Personal Devices : Personal Devices Dentures, upper, [...] NABEEL العراقي, PT - 07/27/2019 11:04 EST Railroad Police Officer Goals Other PT LTG Grid Goal [...] increase safety for mobility at acute care [place]. Pt will amb at leats 25 feet [...] 07/27/2019 11:04 EST Electronically signed by Raman, [facility] Conversion Boat Outboard Engine Mechanic Cerner at 11/21/2022 11:34 AM CDT documented in this encounter Plan of Treatment Not on file documented as of this encounter Visit Diagnoses Not on filedocumented in this encounter
--- OUTSIDE RECORDS SUMMARY | 2025-07-20 11:20 | XMS_ITS | Encounter Summary ---
Author Organization [employer] ([place], [place], [place], [place], [place]) Address [address] [place] [address] Care Team Providers Care Basic Sciences Dean Name Role Phone Unavailable Primary Care Provider Unavailabl e Encounter Details Date Type Department Care Team (Late st Contact Info) Description 08/01/2019 Transcribed Document [facility] [place] Family Medicine [address] [place] [address] ProviderSonia MD [facility] [place], [place] [address] Social History Tobacco Use Types Packs/Day Years Used Date Smoking Tobacco: Never Assessed Comments Unknown Sex and Gender Information Value Date Recorded Sex Assigned at Not on file Legal Sex Female 1:42 PM CDT Gender Identity Not on file Sexual Orientation Not on file documented as of this encounter Miscellaneous Notes * Cerner Conversion Note - Sonia ProviderMD - 08/01/2019 2:46 PM BULK MAIL TECHNICIAN Patient: SANDIE AMARO Age: 63 Years Sex: [...] ready to be discharged to assisted facility VTE Prophylaxis - Medical Sequential Compression [...] 1 Supp, Rectal, 1-Time, PRN Flonase, 1 [place], Nostrils Both, BID Florastor, 250 mg= 1 [...] No 08/01/2019 03:42 EST Electronically signed by [facility], [facility] Conversion Earth Science Professor Cerner at 11/19/2022 8:23 PM CDT documented in this encounter Plan of Treatment Not on file documented as of this encounter Visit Diagnoses Not on filedocumented in this encounter
--- OUTSIDE RECORDS SUMMARY | 2025-07-20 11:20 | XMS_ITS | Encounter Summary ---
Author Organization [employer] ([place], [place], [place], [place], [place]) Address [address] [place] [address] Care Team Providers Care Dowel Machine Operator Name Role Phone Unavailable Primary Care Provider Unavailabl e Encounter Details Date Type Department Care Team (Late st Contact Info) Description 07/08/2019 Transcribed Document [facility] [place] [facility] [place] [address] ProviderSonia MD [address] [place] [id number] Social History Tobacco Use Types Packs/Day Years Used Date Smoking Tobacco: Never Assessed Comments Unknown Sex and Gender Information Value Date Recorded Sex Assigned at Not on file Legal Sex Female 1:42 PM CDT Gender Identity Not on file Sexual Orientation Not on file documented as of this encounter Miscellaneous Notes * Cerner Conversion Note - Sonia ProviderMD - 07/08/2019 9:48 AM CASING MACHINE OPERATOR PAT Adult Entered On: 07/08/2019 9:55 EST [...] Source : Stated Height Entry Format : [place] Height, Feet : 5 ft(Converted to: 152 cm, 60 Inch) Height, Inches : 7 Inch(Converted to: 0 ft 7 Inch, 17.78 cm) Clinical Height : 170.18 cm Weight Source : Standing scale Weight Entry Format : [place] Clinical [facility] Weight : 104.55 kg Weight, Pounds : 230 lb Body Surface Area (BSA) : 2.15 m2 Body Mass Index : 36.1 kg/m2 (HI) [place] Body Weight : 61 kg BHAVANI MCCORMICK [...] BHAVANI MCCORMICK RN - 07/08/2019 9:48 EST [place] Suicide Severity Rating Scale (C-SSRS) CSSRS Past [...] Sandie Legal Guardian : No Support Person/Patient Sr. Unix System Administrator : Yes Support Person/Pt Rep Name : spouse Jose Frank Contact Password : [email or web address] Support Person/Pt Rep Contact Information : [phone] Want Family/Rep/Phys Notified of Admit : No Emergency Contact #1 : Jose Emergency Contact #1 Emergency Contact #1 Relationship : spouse Emergency Contact #2 : - Emergency Contact #2 Phone Number : - Emergency Contact #2 Relationship : - Primary Language : Mozambican Preferred Communication Mode : Verbal Communication Barrier [...]
--- OUTSIDE RECORDS SUMMARY | 2025-07-20 11:20 | XMS_ITS | Encounter Summary ---
Author Organization [employer] ([place], [place], [place], [place], [place]) Address [address] [place] [address] Care Team Providers Care Electric Motor Repair Supervisor Name Role Phone Unavailable Primary Care Provider Unavailabl e Encounter Details Date Type Department Care Team (Late st Contact Info) Description 07/31/[address] [facility] [place] Family Medicine [address] [place] [address] ProviderSonia MD [address] [place] [address] Social History Tobacco Use Types Packs/Day Years Used Date Smoking Tobacco: Never Assessed Comments Unknown Sex and Gender Information Value Date Recorded Sex Assigned at Not on file Legal Sex Female 1:42 PM CDT Gender Identity Not on file Sexual Orientation Not on file documented as of this encounter Miscellaneous Notes * Cerner Conversion Note - Sonia ProviderMD - 07/31/2019 5:00 AM SENIOR ACCOUNTS PAYABLE SPECIALIST Chart Check - Review Order Profile [...]
--- OUTSIDE RECORDS SUMMARY | 2025-07-20 11:20 | XMS_ITS | Encounter Summary ---
Author Organization [employer] ([place], [place], [place], [place], [place]) Address [address] [place] [address] Care Team Providers Care Chiropractic Assistant Name Role Phone Unavailable Primary Care Provider Unavailabl e Encounter Details Date Type Department Care Team (Late st Contact Info) Description 07/31/2019 Transcribed Document [facility] [place] [address] [place] [address] ProviderSonia MD [address] [place], [place] [address] Social History Tobacco Use Types Packs/Day Years Used Date Smoking Tobacco: Never Assessed Comments Unknown Sex and Gender Information Value Date Recorded Sex Assigned at Not on file Legal Sex Female 1:42 PM CDT Gender Identity Not on file Sexual Orientation Not on file documented as of this encounter Miscellaneous Notes * Cerner Conversion Note - Sonia ProviderMD - 07/31/2019 2:00 PM GEOPHYSICAL DATA TECHNICIAN Pain Assessment Entered On: 07/31/2019 15:12 EST [...]
--- OUTSIDE RECORDS SUMMARY | 2025-07-20 11:20 | XMS_ITS | Encounter Summary ---
[facility] Organization [facility] Address [address] [place] [address] Care Team Providers Care Field Artillery Cannoneer Name Role Phone Marc Rodriguez MD Primary Care Provider [phone] Encounter Details Date Type Department Care Team (Late st Contact Info) Description 12/14/2018 External CPT II MANAGER WEB - [employer] Social History Tobacco Use [...] Info) Description 07/25/2025 9:00 AM EST Appointment [facility] [place] [address] [facility] VD [address] [phone] 07/25/2025 12:15 PM EST Appointment [facility] [place] [address] [facility] VD [facility] [address] [place] [address] 07/25/2025 1:45 PM EST Appointment [facility] [place] [address] [facility] VD [facility] [address] [place] [address] 01/11/2026 9:30 AM EDT Office Visit [facility] PULMONARY & CRITICAL CARE MEDICINE [address] [place] [phone] Kaitlin Joiner APRN [address] [place] [address] documented as of this encounter Visit Diagnoses [...] as of this encounter Care Teams Field Artillery Cannoneer Relationship Specialty Start Date End Date Marc Rodriguez MD [address] [facility] [address] [facility] [place] [address] PCP - General Adolescent Medicine 12/08/16 documented as of this encounter
--- OUTSIDE RECORDS SUMMARY | 2025-07-20 11:20 | XMS_ITS | Encounter Summary ---
Author Organization [employer] ([place], [place], [place], [place], [place]) Address [address] [place] [address] Care Team Providers Care Batch Analyst Name Role Phone Unavailable Primary Care Provider Unavailabl e Encounter Details Date Type Department Care Team (Late st Contact Info) Description 08/01/2019 Transcribed Document [facility] [place] Family Medicine [address] [place] [address] ProviderSonia MD [address] [place] [address] Social History Tobacco Use Types Packs/Day Years Used Date Smoking Tobacco: Never Assessed Comments Unknown Sex and Gender Information Value Date Recorded Sex Assigned at Not on file Legal Sex Female 1:42 PM CDT Gender Identity Not on file Sexual Orientation Not on file documented as of this encounter Miscellaneous Notes * Cerner Conversion Note - Sonia ProviderMD - 08/01/2019 5:00 AM DIGITAL ASSOCIATE MEDIA DIRECTOR Chart Check - Review Order Profile [...]
--- OUTSIDE RECORDS SUMMARY | 2025-07-20 11:20 | XMS_ITS | Encounter Summary ---
Author Organization [employer] ([place], [place], [place], [place], [place]) Address [address] [place] [address] Care Team Providers Care Clam Treader Name Role Phone Unavailable Primary Care Provider Unavailabl e Encounter Details Date Type Department Care Team (Late st Contact Info) Description 07/31/2019 Transcribed Document [facility] [place] Family Medicine [address] [place] [address] ProviderSonia MD [address] [place], [place] [address] Social History Tobacco Use Types Packs/Day Years Used Date Smoking Tobacco: Never Assessed Comments Unknown Sex and Gender Information Value Date Recorded Sex Assigned at Not on file Legal Sex Female 1:42 PM CDT Gender Identity Not on file Sexual Orientation Not on file documented as of this encounter Miscellaneous Notes * Cerner Conversion Note - Sonia ProviderMD - 07/31/2019 2:00 AM SEMICONDUCTOR PROCESSING GROUP LEADER Certified Nurses Aide Details Entered On: 07/31/2019 5:26 EST Performed [...] 07/31/2019 5:26 EST Electronically signed by Raman [facility] Conversion Product Grader Cerner at 11/19/2022 8:41 PM CDT documented in this encounter Plan of Treatment Not on file documented as of this encounter Visit Diagnoses Not on filedocumented in this encounter
--- OUTSIDE RECORDS SUMMARY | 2025-07-20 11:20 | XMS_ITS | Encounter Summary ---
Author Organization [employer] ([place], [place], [place], [place], [place]) Address [address] [place] [address] Care Team Providers Care Composition Mixer Name Role Phone Unavailable Primary Care Provider Unavailabl e Encounter Details Date Type Department Care Team (Late st Contact Info) Description 07/11/2019 Transcribed Document [facility] [place] Family Medicine [facility] [place] [address] ProviderSonia MD [address] [place] [address] Social History Tobacco Use Types Packs/Day Years Used Date Smoking Tobacco: Never Assessed Comments Unknown Sex and Gender Information Value Date Recorded Sex Assigned at Not on file Legal Sex Female 1:42 PM CDT Gender Identity Not on file Sexual Orientation Not on file documented as of this encounter Miscellaneous Notes * Cerner Conversion Note - Sonia Boogie MD - 07/11/2019 9:00 AM SENIOR OCCUPATIONAL THERAPIST Orthopedic Nurse Navigator Entered On: 07/11/2019 12:43 EST Performed On: 07/11/2019 9:00 EST by Ana Call Nurse RN Orthopedic Nurse Navigator Assessment Attended Joint Academy : Yes Joint AcademyType : In person Joint Academy Date : 07/11/2019 EST Joint Operations Systems Specialist Attended Academy : Yes Joint Operations Systems Specialist Name : Jose Frank [phone] Type of Surgery : Anterior Hip Replacement, Right Does Patient Have a Walker? : Yes Patient Completed RAPT Score : 8 Joint Navigator Assessment Note : According to the RAPT Score, additional intervention to discharge directly home. Pt indicates leg weakness. Pt indicates she wants OP and [id number]. Ana Call Nurse RN - 07/11/2019 12:38 [...]
--- OUTSIDE RECORDS SUMMARY | 2025-07-20 11:21 | XMS_ITS | Encounter Summary ---
Author Organization [employer] ([place], [place], [place], [place], [place]) Address [address] [place] [address] Care Team Providers Care Explosive Operator Name Role Phone Unavailable Primary Care Provider Unavailabl e Encounter Details Date Type Department Care Team (Late st Contact Info) Description 06/21/[address] [facility] [place] Family Medicine [address] [place] [address] ProviderSonia MD [address] [place], [place] [id number] Social History Tobacco Use Types Packs/Day Years Used Date Smoking Tobacco: Never Assessed Comments Unknown Sex and Gender Information Value Date Recorded Sex Assigned at Not on file Legal Sex Female 1:42 PM CDT Gender Identity Not on file Sexual Orientation Not on file documented as of this encounter Miscellaneous Notes * Cerner Conversion Note - Sonia ProviderMD - 06/21/2020 8:30 AM SALES RELATIONSHIP MANAGER SWAPNIL Shin PreOp Summary Primary Physician: ANIVAL BROWN MD-GAE Finalized Date/Time: 06/21/20 08:19:35 Pt. Name: SANDIE FRANK D.O.B./Sex: 1955 Female Med Rec #: [id number] Physician: ANIVAL BROWN MD-GAE Financial #: [id number] Pt. Type: E Room/Bed: EEN/1 Admit/Disch: 06/21/20 [...] 08:19 Electronically signed by Ivelisse Camargo Conversion Adolescent Medicine Specialist Cerner at 11/19/2022 8:25 PM CDT documented in this encounter Plan of Treatment Not on file documented as of this encounter Visit Diagnoses Not on filedocumented in this encounter
--- OUTSIDE RECORDS SUMMARY | 2025-07-20 11:21 | XMS_ITS | Referral Summary ---
Author Organization [employer] ([place], [place], [place], [place], [place]) Address [address] [place] [address] Care Team Providers Care Laundry Marker Supervisor Name Role Phone Unavailable Primary Care [...]
--- OUTSIDE RECORDS SUMMARY | 2025-07-20 11:21 | XMS_ITS | Clinical Summary ---
Author Organization [employer] ([place], [place], [place], [place], [place]) Address [address] [place] [address] Care Team Providers Care Yardage Estimator Name Role Phone Unavailable Primary Care Provider [...]
--- OUTSIDE RECORDS SUMMARY | 2025-07-20 11:21 | XMS_ITS | Encounter Summary ---
Author Organization [employer] ([place], [place], [place], [place], [place]) Address [address] [place] [address] Care Team Providers Care Mixer And Blender Name Role Phone Unavailable Primary Care Provider Unavailabl e Encounter Details Date Type Department Care Team (Late st Contact Info) Description 06/21/2020 Transcribed Document [facility] [place] Family Medicine On [facility] of [facility] [place] [address] ProviderSonia MD [address] [place] [phone] Social History Tobacco Use Types Packs/Day Years Used Date Smoking Tobacco: Never Assessed Comments Unknown Sex and Gender Information Value Date Recorded Sex Assigned at Not on file Legal Sex Female 1:42 PM CDT Gender Identity Not on file Sexual Orientation Not on file documented as of this encounter Miscellaneous Notes * [employer]ner Conversion Note - Sonia Boogie MD - 06/21/2020 9:01 AM MOLDING ENGINEER Patient Education Materials Follows: Monitored Anesthesia Care, [...] eating solid foods. General instructions ??? Take yeck-gbb-gbxtlcr and prescription medicines only as told by [...] 11/09/2016 Document Revised: 10/18/2018 Document Reviewed: 11/09/2016 [employer] Patient Education ? 2020 [employer] Hemorrhoids Hemorrhoids are swollen veins that [...] times a day. General instructions ??? Take egjz-taj-rxxhfes and prescription medicines only as told by [...] 04/28/2009 Document Revised: 07/28/2019 Document Reviewed: 12/09/2018 [employer] Patient Education ? 2020 [email or web address]. Colonoscopy, Adult, Care After This sheet gives [...] soft and easy to digest. ??? Take xcdj-dtp-zrjclbo or prescription medicines only as told by [...] 08/22/2011 Document Revised: 05/20/2018 Document Reviewed: 04/13/2017 [employer] Patient Education ? 2020 [employer] documented in this encounter Plan of Treatment Not on file documented as of this encounter Visit Diagnoses Not on filedocumented in this encounter
--- OUTSIDE RECORDS SUMMARY | 2025-07-20 11:21 | XMS_ITS | Encounter Summary ---
Author Organization [facility] ([place], [place], [place], [place], [place]) Address [address] [place] [address] Care Team Providers Care Puddler Helper Name Role Phone Unavailable Primary Care Provider Unavailabl e Encounter Details Date Type Department Care Team (Late st Contact Info) Description 06/21/2020 Transcribed Document [facility] Family Medicine [facility] [place] [address] ProviderSonia MD [address] [place] [id number] Social History Tobacco Use Types Packs/Day Years Used Date Smoking Tobacco: Never Assessed Comments Unknown Sex and Gender Information Value Date Recorded Sex Assigned at Not on file Legal Sex Female 1:42 PM CDT Gender Identity Not on file Sexual Orientation Not on file documented as of this encounter Miscellaneous Notes * Cerner Conversion Note - Sonia ProviderMD - 06/21/2020 8:45 AM SECOND BALLER SWAPNIL Shin IntraOp Summary Primary Physician: ANIVAL BROWN MD-GAE Finalized Date/Time: 06/21/20 08:52:23 Pt. Name: PHYLLIS FRANK Jovana Castellano/Sex: 1955 Female Med Rec #: [id number] Physician: ANIVAL BROWN MD-GAE Financial #: [id number] Pt. Type: E Room/Bed: [facility] Admit/Disch: 06/21/20 06:39:00 - [place] [facility] - Case Attendance Entry 1 Entry 2 Entry 3 Case Attendee ANIVAL BROWN MD-GAE WHITAKER, CARLY, RIDINGS, JAROLINE, RN WEBSPHERE ADMINISTRATOR-ANS Role Performed Surgeon/Proceduralist, WEBSPHERE ADMINISTRATOR/Nurse Rn Outpatient Surgery Space Systems Operations Manager, First First Time In 06/21/20 08:36:00 06/21/20 [...] TECH LITTLE, MIGUEL OSORIO MD-ANS Role Performed Space Systems Operations Manager, Second Scrub, First Anesthesiologist of Record Time In 06/21/20 08:36:00 06/21/20 08:36:00 06/21/20 08:36:00 Time Out 06/21/20 08:53:00 06/21/20 08:53:00 06/21/20 08:53:00 Procedure Colonoscopy Colonoscopy Colonoscopy Other Attendee Superficial Wound Closed By: Last Modified By: ANGEL BARAHONA, ANGEL TAVERAS, ANGEL TAVERAS RN 06/21/20 08:51:24 06/21/20 08:51:24 06/21/20 08:51:24 [facility] - Case Attendance Audit 06/21/20 08:51:24 Cloth Calender: [id number] Modifier: [id number] 1 <+> Time Out 1 <*> Procedure Colonoscopy 2 <+> Time Out 2 <*> Procedure Colonoscopy 3 <+> Time Out 3 <*> Procedure Colonoscopy 4 <+> Time Out 4 <*> Procedure Colonoscopy 5 <+> Time Out 5 <*> Procedure Colonoscopy 6 <+> Time Out 6 <*> Procedure Colonoscopy 06/21/20 08:47:03 Cloth Calender: [id number] Modifier: [id number] <+> 1 Procedure 2 <+> Time In [...] Endo - Case Times Audit 06/21/20 08:51:21 Cloth Calender: [id number] Modifier: [id number] <+> 1 Out Room Time <+> 1 Stop Time <+> 1 Stop Time 06/21/20 08:46:22 Cloth Calender: [id number] Modifier: [id number] <+> 1 Start Time [facility] - Delays Entry 1 Delay Reason No Delay Duration 0 Minute(s) Last Modified By: ANGEL BARAHONA RN 06/21/20 08:42:34 [facility] - Departure from OR Entry 1 Integumentary Assessment Integumentary WDL Assessment WDL Transfer/Handoff Transfer to PACU Phase I Post-op Transport Stretcher/Gurney Via Patient Transport HERACLIO PERLA, Accompanied by WEBSPHERE ADMINISTRATOR-BROOKLYN DAMICO JAROLINE, RN Last Modified By: ANGEL [...] Modified By: ANGEL BARAHONA RN 06/21/20 08:44:22 [facility] - General Case Computer Game Programmer 1 Case Information OR Endo 01 [facility] Case Level 1 Room Verified Yes Wound Class III - Contaminated Specialty SN Endovascular Anesthesia Type MAC ASA Class 3 Diagnosis Preop Diagnosis chage in bowel habit Postop Same As Preop No Postop Diagnosis normal post colectomy bowel Last Modified By: ANGEL BARAHONA RN 06/21/20 08:52:07 [facility] - General Case Data Audit 06/21/20 08:52:07 Cloth Calender: [id number] Modifier: [id number] <+> 1 Postop Diagnosis 06/21/20 08:50:45 Cloth Calender: [id number] Modifier: [id number] <+> 1 Specialty <+> 1 ASA Class <+> 1 Anesthesia Type <+> 1 Postop Same As Preop <+> 1 Preop Diagnosis <+> 1 Room Verified [facility] - Intraoperative Assessment Entry 1 Valid History / Yes Physical in Chart Preoperative Yes Checklist Reviewed/Evaluated Allergies Reviewed Yes Patient is Latex No Sensitive Isolation Not applicable Precautions Noted Skin Assessment Yes Verified Present Upon IVs, ECG monitored Arrival to OR Prosthetic/Assistive Pain Pump Devices Last Modified By: ANGEL BARAHONA RN 06/21/20 08:49:55 [facility] - Intraoperative Assessment Audit 06/21/20 08:49:55 Cloth Calender: [id number] Modifier: [id number] <+> 1 Prosthetic/Assistive Devices [facility] - Intraoperative Equipment Entry 1 Type [...] Modified By: ANGEL BARAHONA RN 06/21/20 08:46:06 [facility] - Patient Positioning Entry 1 Procedure [...] Modified By: ANGEL BARAHONA RN 06/21/20 08:51:35 [facility] - Surgical Procedures Entry 1 Procedure Colonoscopy Additional WITH BIOPSY Procedure Description Primary Procedure Yes Primary Surgeon ANIVAL BROWN MD-GAE Start 06/21/20 08:45:00 Stop 06/21/20 08:51:00 Anesthesia Type MAC Specialty SN Gastroenterology Wound Class III - Contaminated Last Modified By: ANGEL BARAHONA RN 06/21/20 08:52:14 General Comments: patient has no cecum [facility] - Surgical Procedures Audit 06/21/20 08:52:14 Cloth Calender: [id number] Modifier: [id number] <+> 1 Stop 06/21/20 08:47:59 Cloth Calender: [id number] Modifier: [id number] 1 <*> Procedure Colonoscopy 1 <*> Procedure [...] 08:44:56 Case Comments <None> Finalized By: ANGEL BARAHONA, RN Document Signatures Signed By: ANGEL BARAHONA RN 06/21/20 08:52 Electronically signed by Raman [facility] Conversion Assembler Finger Buffs Cerner at 11/19/2022 8:29 PM CDT documented in this encounter Plan of Treatment Not on file documented as of this encounter Visit Diagnoses Not on filedocumented in this encounter
--- OUTSIDE RECORDS SUMMARY | 2025-07-20 11:21 | XMS_ITS | Encounter Summary ---
Author Organization [employer] ([place], [place], [place], [place], [place]) Address [address] [place] [address] Care Team Providers Care Subway Operator Name Role Phone Unavailable Primary Care Provider Unavailabl e Encounter Details Date Type Department Care Team (Late st Contact Info) Description 06/21/2020 Transcribed Document [facility] Family Medicine [address] [place] [address] ProviderSonia MD [facility] [place] [address] Social History Tobacco Use Types [...] Sonia Boogie MD - 06/21/2020 9:01 AM TRANSLITERATOR [address] [address] SANDIE FRANK :1955 Visit Time:06/21/2020 [...] See procedure report for instructions. Where: [address] [facility] [address] [place] [address]- [phone] Medications What How Much When Instructions Next [...] 205.5 mcg/ inh (0.15%) nasal spray) 2 Charmco(s) Nasal Two Times A Day as needed [...] Oral At Bedtime fluticasone nasal (Flonase) 1 Charmco(s) Nostrils Both Two Times A Day formoterol [...] eating solid foods. General instructions ??? Take xhat-jxp-hqgnifl and prescription medicines only as told by [...] 11/09/2016 Document Revised: 10/18/2018 Document Reviewed: 11/09/2016 [employer]azz[employer] Patient Education ?? 2020 Klout. Hemorrhoids Hemorrhoids are swollen veins that may [...] times a day. General instructions ??? Take anre-hgo-pttwqbp and prescription medicines only as told by [...] 04/28/2009 Document Revised: 07/28/2019 Document Reviewed: 12/09/2018 [employer]azzle Patient Education ?? 2020 Klout. Colonoscopy, Adult, Care After This sheet gives [...] soft and easy to digest. ??? Take rrua-aqn-obqxooa or prescription medicines only as told by [...] Reviewed: 04/13/2017 Elsevier Patient Education ?? 2020 [employer]azzle [employer]. Emergency Awareness and Preventative Care STROKE [...] Assistance with quitting is available by contacting 8-497-WVZQ-NOW. This is a free resource providing counseling, support, and referral. Or you may contact your personal physician. Membersuite Suicide Prevention Lifeline: The National Suicide Prevention [...] of a heart attack, DON???T DELAY. Call 9-1-1 immediately and seek help. If someone collapses, [...] CPR? There are two easy steps: Call 9--1 if you see a teen or adult [...] was given the opportunity to ask questions. Patient/Roughing Mill Operator Name: Patient/Roughing Mill Operator Signature: Relationship to Patient: Clinician/Hospital Roughing Mill Operator Signature: Date: documented in this encounter Plan of Treatment Not on file documented as of this encounter Visit Diagnoses Not on filedocumented in this encounter
--- OUTSIDE RECORDS SUMMARY | 2025-07-20 11:21 | XMS_ITS | Encounter Summary ---
Author Organization [email or web address] ([place], [place], [place], [place], [place]) Address [address] [place] [address] Care Team Providers Care Tax Appraiser Name Role Phone Unavailable Primary Care Provider Unavailabl e Encounter Details Date Type Department Care Team (Late st Contact Info) Description 07/23/2019 Transcribed Document [facility] Family Medicine [address] [place] [address] ProviderSonia MD [address] [place] [address] Social History Tobacco Use Types Packs/Day Years Used Date Smoking Tobacco: Never Assessed Comments Unknown Sex and Gender Information Value Date Recorded Sex Assigned at Not on file Legal Sex Female 1:42 PM CDT Gender Identity Not on file Sexual Orientation Not on file documented as of this encounter Miscellaneous Notes * Cerner Conversion Note - Historical ProviderMD - 07/23/2019 5:00 AM DIRECTOR VIDEO Chart Check - Review Order Profile Entered On: 07/23/2019 5:25 EST Performed On: 07/23/2019 5:00 EST by DANTE MASCORRO, Press Secretary-Nursing Chart Check Powerplans Initiated/Discontinued as Appropriate : Yes All Active Orders Reviewed : Yes DANTE MASCORRO, Press Secretary-Nursing - 07/23/2019 5:25 EST documented in this encounter Plan of Treatment Not on file documented as of this encounter Visit Diagnoses Not on filedocumented in this encounter
--- OUTSIDE RECORDS SUMMARY | 2025-07-20 11:21 | XMS_ITS | Encounter Summary ---
Author Organization [facility] Address [address] [place] [address] Care Team Providers Care Costume Draper Name Role Phone Marc Rodriguez MD Primary Care Provider [phone] Encounter Details Date Type Department Care Team (Late st Contact Info) Description 02/10/2025 Telephone [facility] CARDIOLOGY [address] [facility] [address] [place] [phone] Jimmy Duncan MD [address] [facility] [address] [place] [address] Social History Tobacco Use Types Packs/Day Years [...] Info) Description 07/25/2025 9:00 AM EST Appointment [facility] NONINVASIVE [facility] [place] [address] [facility] [address] [place] [phone] 07/25/2025 12:15 PM EST Appointment [facility] CARDIOVASCULAR [facility] [place] [address] [facility] [address] [place] [address] 07/25/2025 1:45 PM EST Appointment [facility]ULAR [facility] [place] [address] [facility] [address] [place] [address] 01/11/2026 9:30 AM EDT Office Visit [facility] PULMONARY & CRITICAL CARE MEDICINE [address] [facility] [place] [address] Kaitlin Joiner, GM VIDEO [address] [place] [address] documented as of this encounter Visit Diagnoses Not on filedocumented in this encounter Care Teams Costume Draper Relationship Specialty Start Date End Date Marc Rodriguez MD [address] [facility] [address] [facility] [address] [place] [address] PCP - General Adolescent Medicine 12/08/16 documented as of this encounter
--- OUTSIDE RECORDS SUMMARY | 2025-07-20 11:21 | XMS_ITS | Encounter Summary ---
Author Organization [employer] ([place], [place], [place], [place], [place]) Address [address] [place] [address] Care Team Providers Care Skidder Lever Operator Name Role Phone Unavailable Primary Care Provider Unavailabl e Encounter Details Date Type Department Care Team (Late st Contact Info) Description 06/21/2020 Transcribed Document [facility] Family Medicine [address] [place] [address] ProviderSonia MD [address] [place], [place] [address] Social History Tobacco Use Types Packs/Day Years Used Date Smoking Tobacco: Never Assessed Comments Unknown Sex and Gender Information Value Date Recorded Sex Assigned at Not on file Legal Sex Female 1:42 PM CDT Gender Identity Not on file Sexual Orientation Not on file documented as of this encounter Miscellaneous Notes * Cerner Conversion Note - Sonia ProviderMD - 06/21/2020 8:45 AM FOREIGN LANGUAGE PROFESSOR Neal Shin PACU Summary Primary Physician: ANIVAL BROWN MD-GAE Finalized Date/Time: 06/21/20 09:43:13 Pt. Name: SANDIE FRANK D.O.B./Sex: 1955 Female Med Rec #: [id number] Physician: ANIVAL BROWN MD-GAE Financial #: [id number] Pt. Type: E Room/Bed: [facility]/ Admit/Disch: 06/21/20 06:39:00 - Institution: [facility] PACU Case Times Entry 1 In PACU I 06/21/20 08:55:00 Ready for PACU 06/21/20 09:39:00 Discharge Discharge from PACU 06/21/20 09:40:00 Jeaneth KRAFT Endo PACU Case Times Audit 06/21/20 09:43:13 Water Pollution Control Technician: [id number] Modifier: [id number] <+> 1 Ready for PACU Discharge <+> 1 Discharge from PACU I Finalized By: Rosenda Hunter, RN Document Signatures Signed By: Rosenda Hunter RN 06/21/20 09:43 documented in this encounter Plan of Treatment Not on file documented as of this encounter Visit Diagnoses Not on filedocumented in this encounter
--- OUTSIDE RECORDS SUMMARY | 2025-07-20 11:21 | XMS_ITS | Encounter Summary ---
Author Organization [employer] ([place], [place], [place], [place], [place]) Address [address] [place] [address] Care Team Providers Care Hay Baler Name Role Phone Unavailable Primary Care Provider Unavailabl e Encounter Details Date Type Department Care Team (Late st Contact Info) Description 07/23/2019 Transcribed Document [facility] Family Medicine [address] [place] [address] ProviderSonia MD [facility] [place], [place] [address] Social History Tobacco Use Types Packs/Day Years Used Date Smoking Tobacco: Never Assessed Comments Unknown Sex and Gender Information Value Date Recorded Sex Assigned at Not on file Legal Sex Female 1:42 PM CDT Gender Identity Not on file Sexual Orientation Not on file documented as of this encounter Miscellaneous Notes * Cerner Conversion Note - Sonia ProviderMD - 07/23/2019 5:06 AM BENCH REPAIR TECHNICIAN Pain Assessment Entered On: 08/01/2019 4:02 EST [...]
--- OUTSIDE RECORDS SUMMARY | 2025-07-20 11:21 | XMS_ITS | Encounter Summary ---
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 Physical therapy strongly agreed that he needs to go to inpatient rehabilitation either [place] are at the [facility]. No fevers or chills. No nausea vomiting. [...] list: Medical Adrenal insufficiency / SNOMED CT 5252439494 / Confirmed Aortic valve stenosis / SNOMED CT 167319754 / Confirmed Arthritis / SNOMED CT 0226800 / Confirmed Asthma / SNOMED CT 106410457 / Confirmed At risk for sleep apnea / IMO 43889145 / Confirmed Cataracts, both eyes / SNOMED CT 707325184 / Confirmed chronic back pain / SNOMED CT 577403244 / Confirmed chronic diarrhea / SNOMED CT 544131891 / Confirmed Chronic kidney disease / SNOMED CT 1181181503 / Confirmed B12 deficiency / SNOMED CT 208792163 / Confirmed Dementia / SNOMED CT 43832006 / Confirmed depression / SNOMED CT 65124011 / Confirmed uses Renexa / SNOMED CT 0087098 / Confirmed chronic hydrocort use / SNOMED CT 4324817 / Confirmed peripheral neuropathy / SNOMED CT 73882620 / Confirmed GERD / SNOMED CT 503143898 / Confirmed fibromyalgia / SNOMED CT 57445366 / Confirmed Glaucoma / SNOMED CT 97682293 / Confirmed migraine headaches / SNOMED CT 481478566 / Confirmed hx cataract surgery bilateral / SNOMED CT 6258653475 / Confirmed hx. chest pain / SNOMED CT 5630493719 / Confirmed hx colon resection secondary decreased function / SNOMED CT 5570671723 / Confirmed hx. frequent UTIs / SNOMED CT 9370126365 / Confirmed high cholesterol / SNOMED CT 54821911 / Confirmed high blood pressure / SNOMED CT 3206615150 / Confirmed Hypothyroidism / SNOMED CT 02047178 / Confirmed kidney stone right kidney current and hx / SNOMED CT 856195033 / Confirmed Osteoporosis / SNOMED CT 278436142 / Confirmed Pneumonia / SNOMED CT 895574110 / Confirmed restless leg syndrome / SNOMED CT 60336212 / Confirmed rheumatoid arthritis / SNOMED CT 531557914 / Confirmed Seasonal allergies / SNOMED CT 9098518432 / Confirmed Vitamin D deficiency / SNOMED CT 21356978 / Confirmed Resolved: Hypotension / SNOMED CT 79480423 Canceled: adrenal insufficiency / SNOMED CT 1523961138 Canceled: Hyperthyroidism / SNOMED CT 61327QOQ-MET6-548X-270H-75295BYS9288, Active Problems (33) Adrenal insufficiency Aortic valve [...] azelastine 137 mcg/inh (0.1%) nasal spray: 2 [place], Nasal, BID, PRN: Allergies budesonide: 0.5 mg, [...] intl units oral capsule: 1 Cap, Oral, O3Sjysi, 0 Refill(s) Dilaudid: pain pump, 0 Refill(s) Flax Seed Oil: 1,200 mg, Oral, BID, 0 Refill(s) Flonase: 1 [place], Nostrils Both, BID Lunesta: 3 mg, Oral, [...] azelastine 205.5 mcg/inh (0.15%) nasal spray: 2 [place], Nasal, BID, PRN: for allergy symptoms, 0 [...] azelastine 205.5 mcg/inh (0.15%) nasal spray 2 [place], PRN, Nasal, BID biotin 5 mg, Oral, [...] 50,000 Int Units = 1 Cap, Oral, F7Dwpdl Dilaudid donepezil 23 mg, Oral, Daily famotidine 40 mg, Oral, BID Flax Seed Oil 1,200 mg, Oral, BID Flonase 1 [place], Nostrils Both, BID gabapentin 100 mg oral [...] azelastine 137 mcg/spray nasal 30 mL 2 [place], Nasal, BID bisacodyl 10 mg supp 10 [...] 09:40) 97.7 (JUL 23 09:40) 98.9 (JUL 22:47) Apical HR 97 (JUL 23:29) 97 (JUL 23:29) 97 (JUL 23:) Mon [...] (JUL 22 22:47) Apical HR 97 (JUL 23 00:29) 97 (JUL 23 00:29) 97 (JUL 23:29) Mon HR 90 (JUL [...] EST Height Source Stated Height Entry Format [place] Height/Length, [place] (ft) 5 ft Height/Length [place] 7 Inch CLINICALHEIGHT 170.18 cm [place] Body Weight 61 kg Weight Source Standing scale Weight Entry Format [place] Weight [place] lb 230 lb CLINICALWEIGHT 104.55 kg Body Surface Area (BSA) 2.15 m2 Body Mass Index 36.1 kg/m2 [place] 07/22/2019 6:29 EST Height Source Stated Height Entry Format [place] Height/Length, [place] (ft) 5 ft Height/Length [place] 7 Inch CLINICALHEIGHT 170.18 cm [place] Body Weight 61 kg Weight Source Standing scale Weight Entry Format [place] Weight [place] lb 230 lb CLINICALWEIGHT 104.55 kg Body Surface Area (BSA) 2.15 m2 Body Mass Index 36.1 kg/m2 [place] 07/22/2019 4:50 EST Height Source Not Done: [...] likely need it. Hemoglobin 9.5, creatinine 0.9. [employer] dictation system used. Computer program makes numerous spelling grammar mistakes. If you have any questions or concerns do not hesitate call Dr. Travis Lux at cell phone number [phone]. documented in this encounter Plan of Treatment Not on file documented as of this encounter Visit Diagnoses Not on filedocumented in this encounter
--- OUTSIDE RECORDS SUMMARY | 2025-07-20 11:21 | XMS_ITS | Encounter Summary ---
Author Organization [employer] ([place], [place], [place], [place], [place]) Address [address] [place] [address] Care Team Providers Care Barbering Instructor Name Role Phone Unavailable Primary Care Provider Unavailabl e Encounter Details Date Type Department Care Team (Late st Contact Info) Description 07/23/2019 Transcribed Document [facility] Family Medicine [address] [place] [address] ProviderSonia MD [address] [place], [place] [address] Social History Tobacco Use Types Packs/Day Years Used Date Smoking Tobacco: Never Assessed Comments Unknown Sex and Gender Information Value Date Recorded Sex Assigned at Not on file Legal Sex Female 1:42 PM CDT Gender Identity Not on file Sexual Orientation Not on file documented as of this encounter Miscellaneous Notes * Cerner Conversion Note - Sonia ProviderMD - 07/23/2019 10:00 PM WOOD MACHINE CARVER Pain Assessment Entered On: 07/24/2019 2:20 EST Performed On: 07/23/2019 21:33 EST by Mayra Gibson RN Intervention Information: acetaminophen Performed by Mayra Gibson RN on 07/23/2019 20:33:00 EST acetaminophen,1000mg Oral [...]
--- OUTSIDE RECORDS SUMMARY | 2025-07-20 11:21 | XMS_ITS | Encounter Summary ---
Author Organization [employer] ([place], [place], [place], [place], [place]) Address [address] [place] [address] Care Team Providers Care Combination Building Inspector Name Role Phone Unavailable Primary Care Provider Unavailabl e Encounter Details Date Type Department Care Team (Late st Contact Info) Description 06/21/2020 Transcribed Document [facility] [place] [address] ProviderSonia MD [address] [place], [place] [address] Social History Tobacco Use Types Packs/Day Years Used Date Smoking Tobacco: Never Assessed Comments Unknown Sex and Gender Information Value Date Recorded Sex Assigned at Not on file Legal Sex Female 1:42 PM CDT Gender Identity Not on file Sexual Orientation Not on file documented as of this encounter Miscellaneous Notes * Cerner Conversion Note - Sonia ProviderMD - 06/21/2020 8:03 AM VEGETABLE SPECKER Pre Procedure Adult Entered On: 06/21/2020 8:11 EST Performed On: 06/21/2020 8:03 EST by Ana Lima Rn Height and Weight, Clinical Dosing Height Source : Stated Height Entry Format : [place] Height, Feet : 5 ft(Converted to: 152 cm, 60 Inch) Height, Inches : 7 Inch(Converted to: 0 ft 7 Inch, 17.78 cm) Clinical Height : 170.18 cm Weight Source : Standing scale Weight Entry Format : [place] Clinical Dosing Weight : 86.82 kg Weight, Pounds : 191 lb Body Surface Area (BSA) : 1.98 m2 Body Mass Index : 30 kg/m2 (HI) [place] Body Weight : 61 kg Ana Lima [...] Ana Lima Rn - 06/21/2020 8:[address] Suicide Severity Rating Scale (C-SSRS) CSSRS Past [...] Sandie Legal Guardian : No Support Person/Patient Compression Molding Machine Setter : Yes Support Person/Pt Rep Name : spouse Jose Frank Contact Password : [email or web address] Support Person/Pt Rep Contact Information : [phone] Want Family/Rep/Phys Notified of Admit : Yes Name/Contact Info Fam/Rep Notified Adm : Ronny Frank (spouse) Name/Contact Info Physician Notified Adm : Marc Rodriguez Emergency Contact #1 : Ronny Frank Emergency Contact #1 Emergency Contact #1 Relationship : spouse Emergency Contact #2 : . Emergency Contact #2 Phone Number : . Emergency Contact #2 Relationship : . Primary Language : Yakut Preferred Communication Mode : Verbal Communication Barrier : None Product Sales Engineer Needed : No Ana Lima Rn - [...] Scale Risk Level : 0-24 Low Risk [place] Fall Interventions : Bed in low position, Call device within reach, Wheels locked Ana Lima Rn - 06/21/2020 8:03 EST Valuables and Belongings Valuables and Belongings : Clothing Clothing : Common streetwear Clothing Disposition : Bedside nAa Lima Rn - 06/21/2020 8:03 EST documented in this encounter Plan of Treatment Not on file documented as of this encounter Visit Diagnoses Not on filedocumented in this encounter
--- OUTSIDE RECORDS SUMMARY | 2025-07-20 11:21 | XMS_ITS | Encounter Summary ---
Author Organization [employer] ([place], [place], [place], [place], [place]) Address [address] [place] [address] Care Team Providers Care Enterprise Cloud Architect Name Role Phone Unavailable Primary Care Provider Unavailabl e Encounter Details Date Type Department Care Team (Late st Contact Info) Description 07/23/2019 Transcribed Document [facility] [place] [address] [place] [address] ProviderSonia MD [address], [place] [address] Social History Tobacco Use Types Packs/Day Years Used Date Smoking Tobacco: Never Assessed Comments Unknown Sex and Gender Information Value Date Recorded Sex Assigned at Not on file Legal Sex Female 1:42 PM CDT Gender Identity Not on file Sexual Orientation Not on file documented as of this encounter Miscellaneous Notes * Cerner Conversion Note - Historical ProviderMD - 07/23/2019 2:00 AM AUDITOR IN CHARGE Dye Blender Details Entered On: 07/23/2019 1:05 EST Performed On: 07/23/2019 2:00 EST by DANTE MASCORRO, Performance Management Consultant-Nursing Order Details Transport Mode Order Detail : Bed (including specialty) Isolation Precautions Order Detail : Standard Precautions Order Detail : 0 IV Order Detail : 1 Oxygen Order Detail : 1 Nurse Collect Order Detail : 0 Lift/Transfer : Moderate assist Central Line Order Detail : No Room Service : Appropriate Arterial Line : No DANTE MASCORRO, Performance Management Consultant-Nursing - 07/23/2019 1:05 EST Electronically signed by Raman [facility] Conversion Bending Machine Operator Cerner at 11/19/2022 8:27 PM CDT documented in this encounter Plan of Treatment Not on file documented as of this encounter Visit Diagnoses Not on filedocumented in this encounter
--- OUTSIDE RECORDS SUMMARY | 2025-07-20 11:21 | XMS_ITS | Encounter Summary ---
[facility] Address [address] [place] [address] Care Team Providers Care Gas Dispenser Name Role Phone Marc Rodriguez MD Primary Care Provider Encounter Details Date Type Department Care Team (Late st Contact Info) Description 02/08/2016 External CPT II SURG NURSE - [facility] Social History Tobacco [...] Info) Description 07/25/2025 9:00 AM EST Appointment [facility]INVASIVE LAB [place] [address] [facility] [address] [place] [address] 07/25/2025 12:15 PM EST Appointment [facility] [place] [address] [facility] [address] [place] [address] 07/25/2025 1:45 PM EST Appointment [facility] [place] [address] [facility] [address] [place] [address] 01/11/2026 9:30 AM EDT Office Visit [facility] PULMONARY & CRITICAL CARE MEDICINE [address] [place] [phone] Kaitlin Joiner, ACCOUNTING SYSTEM EXPERT [address] [place] [address] documented as of this encounter Visit Diagnoses [...] as of this encounter Care Teams Gas Dispenser Relationship Specialty Start Date End Date Marc Rodriguez MD [address] [facility] [address] [place] [address] PCP - General Adolescent Medicine 12/08/16 documented as of this encounter
--- OUTSIDE RECORDS SUMMARY | 2025-07-20 11:21 | XMS_ITS | Encounter Summary ---
Author Organization [employer] ([place], [place], [place], [place], [place]) Address [address] [place] [address] Care Team Providers Care Camp Director Name Role Phone Unavailable Primary Care Provider Unavailabl e Encounter Details Date Type Department Care Team (Late st Contact Info) Description 07/23/2019 Transcribed Document [facility] [place] Medicine [address] [place] [address] ProviderSonia MD [address], [place] [address] Social History Tobacco Use Types Packs/Day Years Used Date Smoking Tobacco: Never Assessed Comments Unknown Sex and Gender Information Value Date Recorded Sex Assigned at Not on file Legal Sex Female 1:42 PM CDT Gender Identity Not on file Sexual Orientation Not on file documented as of this encounter Miscellaneous Notes * Cerner Conversion Note - Sonia ProviderMD - 07/23/2019 6:00 AM AUDIO VISUAL DESIGN ENGINEER Pain Assessment Entered On: 07/23/2019 6:31 EST Performed On: 07/23/2019 6:35 EST by DANTE MASCORRO, County Director Welfare-Nursing Intervention Information: acetaminophen Performed by DANTE MASCORRO, County Director Welfare-Nursing on 07/23/2019 05:35:00 EST acetaminophen,1000mg Oral Pain Assessment Pain Assessment : Follow-up assessment Pain Scale Used : FACES Pain Intervention, Drug : Medicated Pain Improved by Intervention : Yes DANTE MASCORRO, County Director Welfare-Nursing - 07/23/2019 6:30 EST Pain Scale Intensity : 2 DANTE MASCORRO, County Director Welfare-Nursing - 07/23/2019 6:30 EST Image 4 - Images currently included in the form version of this document have not been included in the text rendition version of the form. documented in this encounter Plan of Treatment Not on file documented as of this encounter Visit Diagnoses Not on filedocumented in this encounter
--- OUTSIDE RECORDS SUMMARY | 2025-07-20 11:22 | XMS_ITS | Encounter Summary ---
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[employer] - [facility] Social History Tobacco Use [...] 07/25/2025 9:00 AM EST Appointment [facility]INVASIVE [facility] [place] [address] [facility] [address] [place] [address] 07/25/2025 12:15 PM EST Appointment [facility] [place] [address] [facility] [address] [place] [address] 07/25/2025 1:45 PM EST Appointment [facility] [place] [address] [facility] [address] [place] [address] 01/11/2026 9:30 AM EDT Office Visit [facility] PULMONARY & CRITICAL CARE MEDICINE [address] [phone] Kaitlin Joiner, CRANE FOLLOWER [address] [place] [address] documented as of this encounter Visit Diagnoses [...] as of this encounter Care Teams Assistant Chief Of Police Relationship Specialty Start Date End Date Marc Rodriguez MD [address] [facility] [address] [place] [address] PCP - General Adolescent Medicine 12/08/16 documented as of this encounter
--- OUTSIDE RECORDS SUMMARY | 2025-07-20 11:22 | XMS_ITS | Encounter Summary ---
Author Organization [employer] ([place], [place], [place], [place], [place]) Address [address] [place] [address] Care Team Providers Care Trimming Machine Operator Name Role Phone Unavailable Primary Care Provider Unavailabl e Encounter Details Date Type Department Care Team (Late st Contact Info) Description 07/22/2019 Transcribed Document [facility] [place] [address] [place] [address] ProviderSonia MD [address], [place] [address] Social History Tobacco Use Types Packs/Day Years Used Date Smoking Tobacco: Never Assessed Comments Unknown Sex and Gender Information Value Date Recorded Sex Assigned at Not on file Legal Sex Female 1:42 PM CDT Gender Identity Not on file Sexual Orientation Not on file documented as of this encounter Miscellaneous Notes * Cerner Conversion Note - Sonia ProviderMD - 07/22/2019 10:00 PM SURGICAL AIDE Pain Assessment Entered On: 07/23/2019 1:04 EST Performed On: 07/22/2019 23:59 EST by DANTE MASCORRO, Manufacturing Process Technician-Nursing Intervention Information: acetaminophen Performed by DANTE MASCORRO, Manufacturing Process Technician-Nursing on 07/22/2019 22:59:00 EST acetaminophen,1000mg Oral Pain Assessment Pain Assessment : Follow-up assessment Pain Scale Used : FACES Pain Intervention, Drug : Medicated Pain Improved by Intervention : Yes DANTE MASCORRO, Manufacturing Process Technician-Nursing - 07/23/2019 1:03 EST Pain Scale Intensity : 3 DANTE MASCORRO Manufacturing Process Technician-Nursing - 07/23/2019 1:03 EST Image 4 - Images currently included in the form version of this document have not been included in the text rendition version of the form. documented in this encounter Plan of Treatment Not on file documented as of this encounter Visit Diagnoses Not on filedocumented in this encounter
--- OUTSIDE RECORDS SUMMARY | 2025-07-20 11:22 | XMS_ITS | Encounter Summary ---
Author Organization [employer] ([place], [place], [place], [place], [place]) Address [address] [place] [address] Care Team Providers Care Embedded Software Design Engineer Name Role Phone Unavailable Primary Care Provider Unavailabl e Encounter Details Date Type Department Care Team (Late st Contact Info) Description 08/02/2019 Transcribed Document [facility] [place] [address] [place] [address] ProviderSonia MD [address] [place] [address] Social History Tobacco Use Types Packs/Day [...] Sonia Boogie MD - 08/02/2019 12:03 PM ORDER BOOKER [address] , [place] [address] Patient Copy Patient Information: Name: SANDIE FRANK Current Date: 08/02/2019 12:03:10 : 1955 Patient Address: [address] [place] [address] [address] VIERA [id number] Patient Attending Physician: IRINEO DECKER MD Primary Care Provider: LEOPOLDO TEJADA (REF[facility] Primary Care Provider Discharge Diagnosis: Weight on Admission: 230 lb, 0 oz Comment: Follow-up Instructions: With: Address: When: PEE VILLAR MD-[facility] [address] [place] [address] 11:15 AM Comments: Appointment has been made [...] (azelastine 205.5 mcg/inh (0.15%) nasal spray) 2 [place](s) Nasal Two Times A Day as needed [...] Times A Day. fluticasone nasal (Flonase) 1 [place](s) Nostrils Both Two Times A Day. formoterol [...] Barley. Bulgur wheat. Millet. Bran muffins. Popcorn. Lyons wafer crackers. Vegetables Sweet potatoes. Spinach. Kale. Artichokes. Cabbage. Broccoli. Green peas. Carrots. Squash. Fruits Berries. Pears. Apples. Oranges. Avocados. Prunes and raisins. Dried figs. Meats and Other Protein Sources [place], kidney, roland, and soy beans. Split peas. [...] lolis has 11 g of protein. ?? [place] seeds ??? 1 oz has 5.5 g [...] floor. ?? Place frequently used items in qbit-do-kbzwu places ?? Keep electrical cables out of [...] ?? Using the bathroom. ?? Using household lacquerer or toxic chemicals. ?? Touching or taking [...] extended-release form of this medicine is for lzbnmf-tzw-umomt treatment of pain. This form of tramadol [...] against the law. Stop taking all other nnjvoe-muv-rvnhu narcotic pain medications when you start taking [...] may report side effects to FDA at 7-906-WNO-0927. What other drugs will affect tramadol? You [...] may affect tramadol. This includes prescription and sggf-ubi-gqcdpaa medicines, vitamins, and herbal products. Not all [...] to ensure that the information provided by [employer], [place] [employer]. ('[employer]') is accurate, up-to-date, and complete, but no guarantee is made to that effect. Drug information contained herein may be time sensitive. [employer] information has been compiled for use by healthcare practitioners and consumers in the [place] and therefore [employer] does not warrant that uses outside of the [place] are appropriate, unless specifically indicated otherwise. [employer] drug information does not endorse drugs, diagnose patients or recommend therapy. [employer] drug information is an informational resource designed [...] effective or appropriate for any given patient. [employer] does not assume any responsibility for any aspect of healthcare administered with the aid of information [employer] provides. The information contained herein is not intended to cover all possible uses, directions, precautions, warnings, drug interactions, allergic reactions, or adverse effects. If you have questions about the drugs you are taking, check with your doctor, nurse or pharmacist. Copyright 0327-9475 [employer]. Version: 20.02. Revision Date: 05/16/2019. oxycodone (ox [...] The extended-release form of oxycodone is for uwrnoa-ddf-mytgt treatment of pain and should not be [...] against the law. Stop taking all other nabdpd-lzj-ysvtx narcotic pain medicines when you start taking [...] may report side effects to FDA at 2-237-WSN-7132. What other drugs will affect oxycodone? You [...] may affect oxycodone. This includes prescription and yhst-len-omtlnhc medicines, vitamins, and herbal products. Not all [...] to ensure that the information provided by [employer]. ('[employer]') is accurate, up-to-date, and complete, but no guarantee is made to that effect. Drug information contained herein may be time sensitive. [employer] information has been compiled for use by healthcare practitioners and consumers in the [place] and therefore [employer] does not warrant that uses outside of the [place] are appropriate, unless specifically indicated otherwise. [employer] drug information does not endorse drugs, diagnose patients or recommend therapy. [employer] drug information is an informational resource designed [...] effective or appropriate for any given patient. [employer] does not assume any responsibility for any aspect of healthcare administered with the aid of information [employer] provides. The information contained herein is not intended to cover all possible uses, directions, precautions, warnings, drug interactions, allergic reactions, or adverse effects. If you have questions about the drugs you are taking, check with your doctor, nurse or pharmacist. Copyright 0378-5900 [employer]. Version: 13.03. Revision Date: 05/16/2019. hydromorphone (oral) [...] extended-release form of this medicine is for pjbfcz-drc-wehtr treatment of moderate to severe pain, not [...] against the law. Stop taking all other fghgwg-btw-rfwwh narcotic pain medications when you start taking [...] may report side effects to FDA at 8-295-LDE-9477. What other drugs will affect hydromorphone? Opioid [...] drugs may affect hydromorphone, including prescription and hivz-yem-zatzgbr medicines, vitamins, and herbal products. Not all [...] to ensure that the information provided by [employer]. ('[employer]') is accurate, up-to-date, and complete, but no guarantee is made to that effect. Drug information contained herein may be time sensitive. [employer] information has been compiled for use by healthcare practitioners and consumers in the [place] and therefore [employer] does not warrant that uses outside of the [place] are appropriate, unless specifically indicated otherwise. [employer] drug information does not endorse drugs, diagnose patients or recommend therapy. [employer] drug information is an informational resource designed [...] effective or appropriate for any given patient. [employer] does not assume any responsibility for any aspect of healthcare administered with the aid of information [employer] provides. The information contained herein is not intended to cover all possible uses, directions, precautions, warnings, drug interactions, allergic reactions, or adverse effects. If you have questions about the drugs you are taking, check with your doctor, nurse or pharmacist. Copyright 3364-8615 [employer]. Version: 9.02. Revision Date: 06/30/2018. oxycodone (ox [...] The extended-release form of oxycodone is for rqufml-dqy-vwbnv treatment of pain and should not be [...] against the law. Stop taking all other eexijd-atl-njyrq narcotic pain medicines when you start taking [...] may report side effects to FDA at 9-848-LWG-3532. What other drugs will affect oxycodone? You [...] may affect oxycodone. This includes prescription and btli-wvr-vldlqbw medicines, vitamins, and herbal products. Not all [...] to ensure that the information provided by [employer]. ('[employer]') is accurate, up-to-date, and complete, but no guarantee is made to that effect. Drug information contained herein may be time sensitive. [employer] information has been compiled for use by healthcare practitioners and consumers in the [place] and therefore [employer] does not warrant that uses outside of the [place] are appropriate, unless specifically indicated otherwise. [employer] drug information does not endorse drugs, diagnose patients or recommend therapy. [employer] drug information is an informational resource designed [...] effective or appropriate for any given patient. [employer] does not assume any responsibility for any aspect of healthcare administered with the aid of information [employer] provides. The information contained herein is not intended to cover all possible uses, directions, precautions, warnings, drug interactions, allergic reactions, or adverse effects. If you have questions about the drugs you are taking, check with your doctor, nurse or pharmacist. Copyright 8008-2149 [employer]. Version: 13.03. Revision Date: 05/16/2019. gabapentin ([place] [...] day sleeper or work a material handler 2nd shift. Some people have thoughts about suicide [...] may report side effects to FDA at 3-479-YPC-8459. What other drugs will affect gabapentin? Taking gabapentin with other drugs that make you sleepy can worsen this effect. Ask your doctor before taking a sleeping pill, narcotic medication, muscle relaxer, or medicine for anxiety, depression, or seizures. Other drugs may interact with gabapentin, including prescription and oqgt-mdj-lldwvfc medicines, vitamins, and herbal products. Tell your [...]
--- OUTSIDE RECORDS SUMMARY | 2025-07-20 11:22 | XMS_ITS | Encounter Summary ---
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 - [facility] Social History Tobacco [...] Info) Description 07/25/2025 9:00 AM EST Appointment [facility] NONINVASIVE LAB [place] [address] [facility] [address] [place] [address] 07/25/2025 12:15 PM EST Appointment [email or web address] [place] [address] [facility] [address] [place] [address] 07/25/2025 1:45 PM EST Appointment [facility] [place] [address] [facility] [address] [place] [address] 01/11/2026 9:30 AM EDT Office Visit [facility] PULMONARY & CRITICAL CARE MEDICINE [address] [phone] Kaitlin Joiner, METAPHYSICIAN [address] [place] [address] documented as of this encounter Visit Diagnoses [...] documented as of this encounter Care Teams Management Analyst Relationship Specialty Start Date End Date Marc Rodriguez MD [address] [facility] [address] [place] [address] PCP - General Adolescent Medicine 12/08/16 documented as of this encounter
--- OUTSIDE RECORDS SUMMARY | 2025-07-20 11:22 | XMS_ITS | Encounter Summary ---
Author Organization [employer] ([place], [place], [place], [place], [place]) Address [address] [place] [address] Care Team Providers Care Night Baker Name Role Phone Unavailable Primary Care Provider Unavailabl e Encounter Details Date Type Department Care Team (Late st Contact Info) Description 08/02/2019 Transcribed Document [facility] [place] Family Medicine [address] [place] [address] ProviderSonia MD [address] [place] [address] Social History Tobacco Use Types Packs/Day Years Used Date Smoking Tobacco: Never Assessed Comments Unknown Sex and Gender Information Value Date Recorded Sex Assigned at Not on file Legal Sex Female 1:42 PM CDT Gender Identity Not on file Sexual Orientation Not on file documented as of this encounter Miscellaneous Notes * Cerner Conversion Note - Sonia ProviderMD - 08/02/2019 10:44 AM DIRECTOR OF SURGERY Stroke/Warfarin Instructions Entered On: 08/02/2019 10:44 EST Performed On: 08/02/2019 10:44 EST by Aieme Willis RN Stroke/Warfarin Instructions Stroke/TIA Discharge Ins : N/A Warfarin Discharge Ins : N/A Aimee Willis RN - 08/02/2019 10:44 EST Electronically signed by Raman [facility] Conversion Warehouse Shift Supervisor Fela at 11/19/2022 8:43 PM CDT documented in this encounter Plan of Treatment Not on file documented as of this encounter Visit Diagnoses Not on filedocumented in this encounter
--- OUTSIDE RECORDS SUMMARY | 2025-07-20 11:22 | XMS_ITS | Encounter Summary ---
Author Organization [employer] 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 Discharge Vitals Temperature 36.4 ??C Heart Rate (Monitored) 62 Respiratory Rate 16 Blood Pressure 149/68 What to do next Instructions From Your Care Team Discharge Activity: Discharge Activity: Activity as tolerated Diet: Discharge Diet: Heart healthy diet Follow-Up Appointments Follow Up with PEE VILLAR MD-ORT When 09/05/2019 11:15 AM EST Comments Appointment has been made Where: [address] [place], [place] [id number]- Medications What How Much When Instructions Next [...] 205.5 mcg/ inh (0.15%) nasal spray) 2 Hagerman(s) Nasal Two Times A Day as needed [...] A Day tonight fluticasone nasal (Flonase) 1 Hagerman(s) Nostrils Both Two Times A Day tonigt [...] Barley. Bulgur wheat. Millet. Bran muffins. Popcorn. [place] wafer crackers. Vegetables Sweet potatoes. Spinach. Kale. Artichokes. Cabbage. Broccoli. Green peas. Carrots. Squash. Fruits Berries. Pears. Apples. Oranges. Avocados. Prunes and raisins. Dried figs. Meats and Other Protein Sources [place], kidney, roland, and soy beans. Split peas. [...] lolis has 11 g of protein. ??? [place] seeds ??? 1 oz has 5.5 g [...] floor. ??? Place frequently used items in xiwd-ba-kinmm places ??? Keep electrical cables out of [...] ??? Using the bathroom. ??? Using household sludge filtration attendant or toxic chemicals. ??? Touching or taking [...] extended-release form of this medicine is for bgyrdw-qbw-randp treatment of pain. This form of tramadol [...] against the law. Stop taking all other svbbwc-opk-jfxao narcotic pain medications when you start taking [...] may report side effects to FDA at 4-206-GFP-[phone]. What other drugs will affect tramadol? You [...] may affect tramadol. This includes prescription and fzkx-idk-fvlyjpo medicines, vitamins, and herbal products. Not all [...] to ensure that the information provided by [employer]. [employer]') is accurate, up-to-date, and complete, but no guarantee is made to that effect. Drug information contained herein may be time sensitive. [employer] information has been compiled for use by healthcare practitioners and consumers in the [place] and therefore [employer] does not warrant that uses outside of the [place] are appropriate, unless specifically indicated otherwise. [employer] drug information does not endorse drugs, diagnose patients or recommend therapy. [employer] drug information is an informational resource designed [...] effective or appropriate for any given patient. [employer] does not assume any responsibility for any aspect of healthcare administered with the aid of information [employer] provides. The information contained herein is not intended to cover all possible uses, directions, precautions, warnings, drug interactions, allergic reactions, or adverse effects. If you have questions about the drugs you are taking, check with your doctor, nurse or pharmacist. Copyright 8348-9530 [employer]. Version: 20.02. Revision Date: 05/16/2019. oxycodone (ox [...] The extended-release form of oxycodone is for zresma-syl-tiqdx treatment of pain and should not be [...] against the law. Stop taking all other hnsshx-awf-kiwkk narcotic pain medicines when you start taking [...] may report side effects to FDA at [phone]-LML-7206. What other drugs will affect oxycodone? You [...] may affect oxycodone. This includes prescription and wpem-ppu-enwnkbj medicines, vitamins, and herbal products. Not all [...] to ensure that the information provided by [employer]') is accurate, up-to-date, and complete, but no guarantee is made to that effect. Drug information contained herein may be time sensitive. [employer] information has been compiled for use by healthcare practitioners and consumers in the [place] and therefore [employer] does not warrant that uses outside of the [place] are appropriate, unless specifically indicated otherwise. [employer] drug information does not endorse drugs, diagnose patients or recommend therapy. [employer] drug information is an informational resource designed [...] effective or appropriate for any given patient. [employer] does not assume any responsibility for any aspect of healthcare administered with the aid of information [employer] provides. The information contained herein is not intended to cover all possible uses, directions, precautions, warnings, drug interactions, allergic reactions, or adverse effects. If you have questions about the drugs you are taking, check with your doctor, nurse or pharmacist. Copyright 9553-7330 [employer] Version: 13.03. Revision Date: 05/16/2019. hydromorphone (oral) [...] extended-release form of this medicine is for jjnssm-ooz-vbshe treatment of moderate to severe pain, not [...] against the law. Stop taking all other ywfqsj-lyl-ytdax narcotic pain medications when you start taking [...] may report side effects to FDA at 6-656-OPY-2531. What other drugs will affect hydromorphone? Opioid [...] drugs may affect hydromorphone, including prescription and pcrl-hip-wmwhjsd medicines, vitamins, and herbal products. Not all [...] to ensure that the information provided by [employer]') is accurate, up-to-date, and complete, but no guarantee is made to that effect. Drug information contained herein may be time sensitive. [employer] information has been compiled for use by healthcare practitioners and consumers in the [place] and therefore [employer] does not warrant that uses outside of the [place] are appropriate, unless specifically indicated otherwise. [employer]'s drug information does not endorse drugs, diagnose patients or recommend therapy. [employer] drug information is an informational resource designed [...] effective or appropriate for any given patient. [employer] does not assume any responsibility for any aspect of healthcare administered with the aid of information [employer] provides. The information contained herein is not intended to cover all possible uses, directions, precautions, warnings, drug interactions, allergic reactions, or adverse effects. If you have questions about the drugs you are taking, check with your doctor, nurse or pharmacist. Copyright 9095-7538 [employer]. Version: 9.02. Revision Date: 06/30/2018. oxycodone (ox [...] The extended-release form of oxycodone is for aivmpi-ukd-bcwhl treatment of pain and should not be [...] against the law. Stop taking all other ghbihs-gla-asfdh narcotic pain medicines when you start taking [...] may report side effects to FDA at [phone]-TYF-7842. What other drugs will affect oxycodone? You [...] may affect oxycodone. This includes prescription and hnno-yvd-kjwmvzy medicines, vitamins, and herbal products. Not all [...] to ensure that the information provided by [employer]') is accurate, up-to-date, and complete, but no guarantee is made to that effect. Drug information contained herein may be time sensitive. [employer] information has been compiled for use by healthcare practitioners and consumers in the [place] and therefore [employer] does not warrant that uses outside of the [place] are appropriate, unless specifically indicated otherwise. [employer] drug information does not endorse drugs, diagnose patients or recommend therapy. [employer] drug information is an informational resource designed [...] effective or appropriate for any given patient. [employer] does not assume any responsibility for any aspect of healthcare administered with the aid of information [employer] provides. The information contained herein is not intended to cover all possible uses, directions, precautions, warnings, drug interactions, allergic reactions, or adverse effects. If you have questions about the drugs you are taking, check with your doctor, nurse or pharmacist. Copyright 6233-0653 [employer]. Version: 13.03. Revision Date: 05/16/2019. 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 Some people have thoughts about suicide while [...]
--- OUTSIDE RECORDS SUMMARY | 2025-07-20 11:22 | XMS_ITS | Clinical Summary ---
Author Organization [facility] Address [address] [place] [address] Phone Care Team Providers [employer] Receiver Name Role Phone TERRELL PHIPPS, LEOPOLDO Unavailable [phone] HARRIETT PHIPPS, EFFIE Koenig Primary Care Provider [phone] Yareli PHIPPS, Brian Shelton Unavailable [phone] Reason for Visit and Chief Complaint The Chief Complaint is: Bilateral knee pain Problems Includes: Problems addressed during this encounter and other active Problems All Visits Onset Date Date of Diagnosis Resolved Date Provider Condition Status Joint Pain in Both Knees 11/07/2024 11/07/2024 Missael Avalos PA-C Active Last Documented On 5 1:43AM ; [facility] Joint Pain Hip Right 06/08/2019 06/08/2019 Violette Newton MD Active Last Documented On 5 1:39AM ; [facility] Joint Pain Shoulder Bilateral 08/20/2017 08/20/2017 Giancarlo Wood MD Active Last Documented On 5 1:39AM ; [facility] Joint Pain Shoulder 06/17/2017 06/17/2017 Amy Jimenez MD Active Last Documented On 5 1:39AM ; [facility] Right Forearm Bone Pain 01/09/2017 01/09/2017 Peace Jimenez MD Active Last Documented On 5 1:38AM ; [facility] Carpal Tunnel Syndrome 03/23/2015 03/23/2015 Hammad Downs MD Active Last Documented On 5 1:38AM ; [facility], [facility] Plan of Treatment Patient screened for future fall risk: documentation of any fall with injury in past year. - Last Documented On 12/19/2024 10:04AM ; [facility] Fall Risk Assessment: This patient has [...] with the patient. - Last Documented On 12/19/2024 10:04AM ; [facility] Patient follows up 6 weeks after initial evaluation for bilateral knee DJD and quad weakness. Physical therapy seems to be improving but exacerbating her knee pain. Cortisone injection was beneficial for about 3-4 weeks then wearing off. Recommend bilateral knee Durolane injections with hyaluronic acid to see if this will help lubricate the knees and reduce inflammation allowing her to continue to perform more physical therapy to improve her quad strength. Follow up with the injections. - Last Documented On 12/19/2024 10:04AM ; [facility] Instructions to patient Instructions for patient to see pcp for bp and wt Last Documented On 5 8:56AM ; [facility] Lose weight Last Documented On 5 8:56AM ; [facility] Assessments Includes: Assessments from this encounter Findings - Overweight - Last Documented On 12/19/2024 10:04AM ; [facility] Bilateral knee DJD - Last Documented On 12/19/2024 10:04AM ; [facility] Instructions Includes: Instructions from this encounter Instructions to patient Instructions for patient to see pcp for bp and wt Last Documented On 5 8:56AM ; [facility] Lose weight Last Documented On 5 8:56AM ; [facility] Medical Equipment - Implanted Devices Includes: Current Devices No Medical Equipment Recorded Medications Includes: Medications discussed during this encounter and other current Medications Current Medications (continue as prescribed) QUEtiapine Fumarate 300 MG Oral Tablet 11/04/2024 Pr ovider: Diagnosis: Last Documented On 5 8:26AM By Kaylynn Philippe ; [facility] amLODIPine Besylate 5 MG Oral Tablet 11/04/2024 Prov ider: LEOPOLDO TEJADA MD Diagnosis: Last Documented On 5 8:26AM By Kaylynn Philippe ; [facility] Rosuvastatin Calcium 20 MG Oral Tablet 11/01/2024 Pr ovider: THOMPSON GOSS MD Diagnosis: Last Documented On 5 8:26AM By Kaylynn Philippe ; [facility] DULoxetine HCl 60 MG Oral Capsule Delayed Releas e Particles 10/28/2024 Provider: Diagnosis: Last Documented On 5 8:26AM By Kaylynn Philippe ; [facility] Donepezil HCl 23 MG Oral Tablet 10/25/2024 Provider: Esther Mathew PA-C Diagnosis: Last Documented On 5 8:26AM By Kaylynn Philippe ; [facility] Trulance 3 MG Oral Tablet 10/23/2024 Provider: YAKOV DIXON MD Diagnosis: Last Documented On 5 8:26AM By Kaylynn Philippe ; [facility] Memantine HCl 10 MG Oral Tablet 10/22/2024 Provider: Esther Mathew PA-C Diagnosis: Last Documented On 5 8:26AM By Kaylynn Philippe ; [facility] lamoTRIgine 100 MG Oral Tablet 10/22/2024 Provider: Esther Mathew PA-C Diagnosis: Last Documented On 5 8:26AM By Kaylynn Philippe ; [facility] Montelukast Sodium 10 MG Oral Tablet 10/18/2024 Prov ider: Diagnosis: Last Documented On 5 8:26AM By Kaylynn Philippe ; [facility] Nitrofurantoin Monohyd Macro 100 MG Oral Capsule 10/17/2024 Provider: Maggi zimmer APRN Diagnosis: Last Documented On 5 8:26AM By Kaylynn Philippe ; [facility] Levothyroxine Sodium 88 MCG Oral Tablet 10/14/2024 P rovider: LEOPOLDO TEJADA MD Diagnosis: Last Documented On 5 8:26AM By Kaylynnchavo Philippe ; [facility] Dantrolene Sodium 50 MG Oral Capsule 10/13/2024 Prov ider: Suzan Sanchez MD Diagnosis: Last Documented On 5 8:26AM By Kaylynnchavo Philippe ; [facility] Emgality 120 MG/ML Subcutane ous Solution Auto-injector 10/10/2024 Provider: Esther Mathew PA-C Diagnosis: Last Documented On 5 8:26AM By Kaylynnchavo Philippe ; [facility] Pantoprazole Sodium 40 MG Or al Tablet Delayed Release 10/07/2024 Provider: LEOPOLDO TEJADA MD Diagnosis: Last Documented On 5 8:26AM By Kaylynn Philippe ; [facility] busPIRone HCl 5 MG Oral Tablet 10/04/2024 Provider: Suzan Sanchez MD Diagnosis: Last Documented On 5 8:26AM By Kaylynn Philippe ; [facility] Linzess 72 MCG Oral Capsule 10/03/2024 Provider: Maggi Crawford APRN Diagnosis: Last Documented On 5 8:26AM By Kaylynn Philippe ; [facility] Hydrocortisone 5 MG Oral Tablet 09/29/2024 Provider: LEOPOLDO TEJADA MD Diagnosis: Last Documented On 5 8:26AM By Kaylynn Philippe ; [facility] Cefdinir 300 MG Oral Capsule 09/29/2024 Provider: Diagnosis: Last Documented On 5 8:26AM By Kaylynn Philippe ; [facility] Past Medications on file Zofran 4 MG Oral Tablet 07/20/2019 - 07/25/2019 Provid er: Patrick Newton MD Diagnosis: [id number] DO NOT FILL TILL 07/22/19 FOR SURGERY Last Documented On 9 12:44PM By Pat Oneil ; [facility] Colace 100 MG Oral Capsule 07/20/2019 - 10/18/2019 Provider: Patrick marsh MD Diagnosis: 1-2 tabs daily DO NOT FILL TILL 07/22/19 FOR SURGERY Last Documented On 9 12:44PM By Pat Oneil ; [facility] Neurontin 300 MG Oral Capsule 07/20/2019 - 10/18/2019 Provider: Patrick marsh MD Diagnosis: 1 every bedtime DO NOT ZEENAT L TILL 07/22/19 FOR SURGERY Last Documented On 9 12:34PM By Pat Oneil ; [facility] Dilaudid 2 MG Oral Tablet 07/20/2019 - 07/22/2019 Provider: Patrick marsh MD Diagnosis: 1-2 po q6h prn pain (RESCUE PAIN)DO NOT FILL TILL 07/22/19 FOR SURGERY Last Documented On 9 12:37PM By Pat Oneil ; [facility] Acetaminophen 500 MG Oral Tablet 07/20/2019 - 08/19/2019 Provider: Patrick Newton MD Diagnosis: 2 three times a day DO NOT FILL TILL 07/22/19 FOR SURGERY Last Documented On 9 12:44PM By Pat Oneil ; [facility] traMADol HCl 50 MG Oral Tablet 07/20/2019 - 07/25/2019 Provider: Patrick marsh MD Diagnosis: 1-2 po q6h prn pain DO NOT FILL TILL 07/22/19 FOR SURGERY Last Documented On 9 12:34PM By Pat Oneil ; [facility] oxyCODONE HCl 5 MG Oral Tablet 07/20/2019 - 07/25/2019 Provider: Patrick marsh MD Diagnosis: 1-2 po q6h prn pain DO NOT FILL TILL 07/22/19 FOR SURGERY Last Documented On 9 12:34PM By Pat Oneil ; [facility] Mupirocin 2% External Ointment 06/20/2019 - 06/25/2019 Provider: Patrick marsh MD Diagnosis: three times a day Apply to n ostrils 3 time a day 5 days prior to surgery. Last Documented On 9 1:10PM By Sushma Miller ; [facility] Cyclobenzaprine HCl 5MG Oral Tablet 08/20/2017 - 10/19/2017 Provider: Giancarlo Wood MD Diagnosis: Take 1 tablet every 8 hrs// Last Documented On 8 4:16PM By Yelena Call ; [facility] Cyclobenzaprine HCl 5MG Oral Tablet 07/31/2017 - 09/29/2017 Provider: Amy gonzalez MD Diagnosis: Take 1 tablet every 8 hrs// Last Documented On 7 11:22AM By Sonia Lima ; [facility] [place] 5-325MG Oral Tablet 06/17/2017 - 07/17/2017 Prov ider: Ramone Staples MD Diagnosis: 1-2 every 4-6 hours as needed Last Documented On 7 9:20AM By Shelly Sood ; [facility] Voltaren 1 % Gel 03/25/2017 - 04/24/2017 Provider: Amy Jimenez MD Diagnosis: four times a day Last Documented On 7 10:06AM By Viktoria Chopra ; [facility] Flector 1.3 % Patch 03/25/2017 - 04/24/2017 Provider: Amy Jimenez MD Diagnosis: once a day Last Documented On 7 10:06AM By Viktoria Chopra ; [facility] [place] 10-325 MG Tablet 03/25/2017 - 04/24/2017 Provide r: Amy Jimenez MD Diagnosis: 1-2 po q 4-6h prn Last Documented On 7 9:59AM By Viktoria Chopra ; [facility] CeleXA 20 MG Tablet 02/25/2017 - 03/27/2017 Provider: Amy Jimenez MD Diagnosis: once a day Last Documented On 7 10:27AM By Haven Mancuso ; [facility] Flector 1.3 % Patch 02/25/2017 - 04/26/2017 Provider: Amy Jimenez MD Diagnosis: apply patch to affected area BID or as needed Last Documented On 7 9:57AM By Viktoria Chopra ; [facility] [place] 10-325 MG Tablet 02/25/2017 - 03/07/2017 Provide r: Amy Jimenez MD Diagnosis: 1-2 po q 4-6h prn Last Documented On 7 9:53AM By Viktoria Chopra ; [facility] [place] 10-325 MG Tablet 01/09/2017 - 01/19/2017 Provide r: Amy Jimenez MD Diagnosis: 1-2 po q 4-6h prn/jkp Last Documented On 7 1:10PM By Haven Mancuso ; [facility] Medications Administered Includes: Administered Medications from this encounter No Administered Medications Recorded Vital Signs Includes: Vital Signs from this encounter Vital Name 12/19/2024 08:56A Height (in) 67 Weight (lb) 195.3 Body Mass Index 30.6 Body Surface Area 2 Note: ab Last Documented: On 12/19/2024 9:07AM ; [facility] Results Includes: Results discussed during this encounter No Results Recorded For Specified Dates History of Present Illness Includes: History of Present Illness from this encounter GABRIEL Frank is a 69 year old female. - Allergy list reviewed - Problem list reviewed - Medication list reviewed - Review of medications documented Social History Description Last Updated No recent change in diet 08/19/2022 Last Documented On 5 8:56AM ; [facility] Not a current smoker. 08/19/2022 Last Documented On 5 8:56AM ; [facility] Non-smoker 07/09/2020 Last Documented On 5 8:56AM ; [facility] Not a current smoker. 07/09/2020 Last Documented On 5 8:56AM ; [facility] No tobacco use 04/23/2015 Last Documented On 5 8:56AM ; [facility] Smoking status : Never smoker 04/23/2015 Last Documented On 5 8:56AM ; [facility] Caffeine use 03/23/2015 Last Documented On 5 8:56AM ; [facility] No recent change in diet 03/23/2015 Last Documented On 5 8:56AM ; [facility] Not a current smoker 03/23/2015 Last Documented On 5 8:56AM ; [facility] Not exercising regularly 03/23/2015 Last Documented On 5 8:56AM ; [facility] Not using alcohol 03/23/2015 Last Documented On 5 8:56AM ; [facility] Not using drugs 03/23/2015 Last Documented On 5 8:56AM ; [facility] Sex - Female 01/11/2025 Last Documented On 5 12:16PM ; [facility] Procedures and Surgical History Includes: Procedures from this encounter Procedures Code Diagnosis Performing Provider Service L ocation Service Date use of tobacco assessment performed 1000F Last Documented On 5 8:56AM ; [facility] Pt received screening for fall risk G8270 Last Documented On 5 8:56AM ; [facility] Surgical History Last Updated History of total hip replacement 023 Last Documented On 5 8:56AM ; [facility] History of appendectomy 03/23/2015 Last Documented On 5 8:56AM ; [facility] History of hysterectomy 03/23/2015 Last Documented On 5 8:56AM ; [facility] Medical History Includes: Medical History addressed during this encounter Description Last Updated History of Anemia 08/19/2022 Last Documented On 5 8:56AM ; [facility] History of arthritis 08/19/2022 Last Documented On 5 8:56AM ; [facility] History of Fractures 08/19/2022 Last Documented On 5 8:56AM ; [facility] History of Heartburn / Acid Reflux 08/19 Last Documented On 5 8:56AM ; [facility] History of Thyroid Disease 08/19/2022 Last Documented On 5 8:56AM ; [facility] Anemia 07/09/2020 Last Documented On 5 8:56AM ; [facility] Arthritis 07/09/2020 Last Documented On 5 8:56AM ; [facility] Heartburn / Acid Reflux 07/09/2020 Last Documented On 5 8:56AM ; [facility] History of Blood Transfusion 07/09/2020 Last Documented On 5 8:56AM ; [facility] History of Rheumatology 07/09/2020 Last Documented On 5 8:56AM ; [facility] Hypertension 07/09/2020 Last Documented On 5 8:56AM ; [facility] Thyroid Disease 07/09/2020 Last Documented On 5 8:56AM ; [facility] A recent immunization for flu 07/09/2020 Last Documented On 5 8:56AM ; [facility] colon, 2 foot surgeries, tim n pump placement,cateracts, kidney stones, colectomy, heartburn/acid reflux 06/08/2019 Last Documented On 5 8:56AM ; [facility] A previous fracture 06/08/2019 Last Documented On 5 8:56AM ; [facility] History of asthma 06/08/2019 Last Documented On 5 8:56AM ; [facility] History of osteoporosis 06/08/2019 Last Documented On 5 8:56AM ; [facility] Rheumatology history 06/08/2019 Last Documented On 5 8:56AM ; [facility] Thyroid disease 06/08/2019 Last Documented On 5 8:56AM ; [facility] A recent immunization for pneumococcal p neumonia 10/05/2014 03/23/2015 Last Documented On 5 8:56AM ; [facility] Arthritic joint problems 03/23/2015 Last Documented On 5 8:56AM ; [facility] Gallbladder disease 03/23/2015 Last Documented On 5 8:56AM ; [facility] History of depression 03/23/2015 Last Documented On 5 8:56AM ; [facility] Family History Includes: Family History addressed during this encounter Description Last Updated Stroke / Seizures 08/19/2022 Last Documented On 5 8:56AM ; [facility] Diabetes mellitus 07/09/2020 Last Documented On 5 8:56AM ; [facility] Family history of osteoporosis 0 Last Documented On 5 8:56AM ; [facility] Family history of rheumatoid arthritis 1 09/09/2019 Last Documented On 5 8:56AM ; [facility] Family history [use for free text] 01/09 Last Documented On 5 8:56AM ; [facility] Family history of cancer 01/09/2017 Last Documented On 5 8:56AM ; [facility] Family history of diabetes mellitus 04/2017 Last Documented On 5 8:56AM ; [facility] Family history of heart disease 01/10/20 17 Last Documented On 5 8:56AM ; [facility] Review of Systems Includes: Review of [...] this encounter Description Anxiety Last Documented On 5 8:56AM ; [facility] Physical Exam Includes: Physical Exam from this encounter Allergies Includes: Active Allergies Substance Type Reaction Onset Date Resolved Date Statu s OTHER Allergy meropenem 06/08/2019 Active Last Documented On 5 8:55AM ; [facility] Lyrica Allergy 03/23/2015 Active Last Documented On 5 8:55AM ; [facility] Keflex Allergy 03/23/2015 Active Last Documented On 5 8:55AM ; [facility] Erythromycin Allergy 03/23/2015 Active Last Documented On 5 8:55AM ; [facility] Codeine Sulfate Allergy 03/23/2015 Act ru Last Documented On 5 8:55AM ; [facility] Clindamycin HCl Allergy 06/08/2019 Act ru Last Documented On 5 8:55AM ; [facility] Cleocin Allergy 03/23/2015 Active Last Documented On 5 8:55AM ; [facility] Cephalexin Allergy 06/08/2019 Active Last Documented On 5 8:55AM ; [facility] [employer] Receiver Name (Identifier) Role/Relation Location/Telecom Last Documented By LEOPOLDO TEJADA MD ([id number]) [address], [place], [address] tel: Last Documented On 01/09/2017 12:46PM ; [facility] EFFIE LORENZANA MD ([id number]) Primary care physician (occupation) [address], [place], [place], [place], [address] tel: Last Documented On 01/11/2025 12:16PM ; [facility] Brian Downs MD ([id number]) Assigned practitioner (occupation) [address], [place], [place], [address] tel: Last Documented On 01/11/2025 12:16PM ; [facility], [facility] Encounters Encounter Provider Location (Healthcare Service Location) Date Check-In Time Check-Out Time Diagnosis Encounter Disposition Follow Up Missael Avalos PA-C [facility] 2024 9:00AM 10:02AM Overweight Payer Includes: Active Insurance Policies Plan Name (Payer ID) Coverage Type Member ID Group # Subscriber (ID) Relationship Effective Dates 1 - Medicare Part B [facility] ([id number]) [id number] Sandie Frank Self 4 - Unknown Last Documented On 9 1:05PM ; [facility] 2 - [facility] ([id number]) [id number] Sandie Frank Self 08/03/19 19 - Unknown Last Documented On 9 1:06PM ; [facility], [facility] Clinical Notes Includes: Clinical Notes from this encounter * Progress note Date Encounter Last Documented by 12/19/2024 Follow Up Last documented on 12/19/2024; 10:04 AM, Missael Avalos PA-C; [facility], [facility] Active Problems & Conditions - Carpal [...] list reviewed - Medication list reviewed - Review of medications documented Current Medication [...] flu and for pneumococcal pneumonia 10/05/2014. Diagnoses: Asthma Diagnoses: - Anemia Diagnoses: Anemia Diagnoses: - History of Blood Transfusion - Heartburn / Acid Reflux Diagnoses: Heartburn / Acid Reflux Diagnoses: - Thyroid Disease Diagnoses: Thyroid Disease Diagnoses: - Hypertension - History of Rheumatology Diagnoses: Osteoporosis Diagnoses: - Arthritis Diagnoses: Arthritis. Depression Colon, 2 foot surgeries, pain pump placement,cateracts, kidney stones, colectomy, heartburn/acid reflux. Surgical: - Appendectomy - Hysterectomy - Total hip replacement Social History Not a current smoker. Not a current smoker. Current diet: No recent change in diet. No recent change in diet. Behavioral: Not a current smoker. Caffeine: Caffeine use. Tobacco use: No tobacco use. Non-smoker. Smoking status: Never smoker. Alcohol: Not using alcohol. Drug Use: Not using drugs. Habits: Not exercising regularly. Allergies - Cephalexin - Cleocin - Clindamycin HCl - Codeine Sulfate - Erythromycin - Keflex - Lyrica - OTHER Reaction: meropenem Family History Cancer Heart disease Stroke / Seizures - Diabetes mellitus family history [use for free [...] allergic reaction. Physical Findings - Vitals taken 12/19/2024 08:56 am ab Height 67 in Weight 195 lbs 4.8 oz Body Mass Index 30.6 kg/m2 Body Surface Area 2 m2 Patient [...] [5/5] Gastroc, [4/5] Quad Palpable pulses DP/PT Assessment - Overweight Bilateral knee DJD Therapy - Pt received screening for fall risk. Counseling/Education Tobacco non-user. use of tobacco assessment performed. - Instructions for patient to see pcp for bp and wt - Lose weight Plan Patient screened for future fall risk: documentation of any fall with injury in past year. Fall Risk Assessment: This patient has been [...] has been discussed with the patient. Patient follows up 6 weeks after initial evaluation for bilateral knee DJD and quad weakness. Physical therapy seems to be improving but exacerbating her knee pain. Cortisone injection was beneficial for about 3-4 weeks then wearing off. Recommend bilateral knee Durolane injections with hyaluronic acid to see if this will help lubricate the knees and reduce inflammation allowing her to continue to perform more physical therapy to improve her quad strength. Follow up with the injections. Notes This dictation was done with voice recognition software and may contain errors and omissions. Practice Management Use of tobacco assessment performed. Care Team - LEOPOLDO TEJADA MD - [employer]
--- OUTSIDE RECORDS SUMMARY | 2025-07-20 11:22 | XMS_ITS | Encounter Summary ---
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 - [facility] Social History Tobacco [...] Info) Description 07/25/2025 9:00 AM EST Appointment [facility] NONINVASIVE LAB [place] [address] [facility] [address] [place] [address] 07/25/2025 12:15 PM EST Appointment [facility] [place] [address] [facility] [address] [address] [address] [place] [address] 07/25/2025 1:45 PM EST Appointment [facility] [place] [address] [facility] [address] [address] [place] [address] 01/11/2026 9:30 AM EDT Office Visit [facility] PULMONARY & CRITICAL CARE MEDICINE [address] [place] [phone] Kaitlin Joiner, DIRECTOR BIOLOGY [address] [place] [address] documented as of this encounter Visit Diagnoses [...] documented as of this encounter Care Teams Logging Contractor Relationship Specialty Start Date End Date Marc Rodriguez MD [address] [facility] [address] [place] [address] PCP - General Adolescent Medicine 12/08/16 documented as of this encounter
--- OUTSIDE RECORDS SUMMARY | 2025-07-20 11:22 | XMS_ITS | Encounter Summary ---
Author Organization [employer] ([place], [place], [place], [place], [place]) Address [address] [place] [address] Care Team Providers Care Transaction Coordinator Name Role Phone Unavailable Primary Care Provider Unavailabl e Encounter Details Date Type Department Care Team (Late st Contact Info) Description 07/22/2019 Transcribed Document [facility] [place] Family Medicine [address] [place] [address] ProviderSonia MD [address] [place] [id number] Social History Tobacco Use Types Packs/Day Years Used Date Smoking Tobacco: Never Assessed Comments Unknown Sex and Gender Information Value Date Recorded Sex Assigned at Not on file Legal Sex Female 1:42 PM CDT Gender Identity Not on file Sexual Orientation Not on file documented as of this encounter Miscellaneous Notes * Cerner Conversion Note - Sonia Boogie MD - 07/22/2019 11:20 AM BRICK MAKER Evaluation, Occupational Therapy Entered On: 07/22/2019 13:17 EST Performed On: 07/22/2019 12:49 EST by CAM KELLY OTR/L General Information, OT Visit Type, OT [...] CAM KELLY OTR/Cat - 07/22/2019 12:49 EST Cashier Office Goals, OT Other LTG Grid Goal #1 [...] R ATHA for safe return home to [facility] , 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
--- OUTSIDE RECORDS SUMMARY | 2025-07-20 11:22 | XMS_ITS | Encounter Summary ---
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 - [facility] Social History [...] Info) Description 07/25/2025 9:00 AM EST Appointment [facility] NONINVASIVE LAB [place] [address] [facility] [address] [place] [address] 07/25/2025 12:15 PM EST Appointment [facility] [place] [address] [facility] [address] [place] [address] 07/25/2025 1:45 PM EST Appointment [facility] CARDI[facility]ULAR [facility] [place] [address] [facility] [address] [place] [address] 01/11/2026 9:30 AM EDT Office Visit [facility] PULMONARY & CRITICAL CARE MEDICINE [address] [phone] Kaitlin Joiner, COSMETOLOGY EDUCATOR [address] [place] [address] documented as of this encounter Visit Diagnoses [...] documented as of this encounter Care Teams Dietitian Teacher Relationship Specialty Start Date End Date Marc Rodriguez MD [address] [facility] [address] [place] [address] PCP - General Adolescent Medicine 12/08/16 documented as of this encounter
--- OUTSIDE RECORDS SUMMARY | 2025-07-20 11:22 | XMS_ITS | Encounter Summary ---
Author Organization [employer] ([place], [place], [place], [place], [place]) Address [address] [place] [address] Care Team Providers Care Marriage Counselor Minister Name Role Phone Unavailable Primary Care Provider Unavailabl e Encounter Details Date Type Department Care Team (Late st Contact Info) Description 07/22/2019 Transcribed Document [facility] [place] Family Medicine [address] [place] [address] ProviderSonia MD [address] [place], [place] [id number] Social History Tobacco Use Types Packs/Day Years Used Date Smoking Tobacco: Never Assessed Comments Unknown Sex and Gender Information Value Date Recorded Sex Assigned at Not on file Legal Sex Female 1:42 PM CDT Gender Identity Not on file Sexual Orientation Not on file documented as of this encounter Miscellaneous Notes * Cerner Conversion Note - Sonia ProviderMD - 07/22/2019 5:00 PM COSTUME TECHNICIAN Chart Check - Review Order Profile Entered On: 07/22/2019 19:02 EST Performed On: 07/22/2019 17:00 EST by Aimee Willis RN Chart Check Powerplans Initiated/Discontinued as Appropriate : Yes All Active Orders Reviewed : Yes Aimee Willis RN - 07/22/2019 19:02 EST Electronically signed by Raman [facility] Conversion Revenue Field Agent Cerner at 11/19/2022 8:33 PM CDT documented in this encounter Plan of Treatment Not on file documented as of this encounter Visit Diagnoses Not on filedocumented in this encounter
--- OUTSIDE RECORDS SUMMARY | 2025-07-20 11:22 | XMS_ITS | Encounter Summary ---
Author Organization [employer] ([place], [place], [place], [place], [place]) Address [address] [place] [address] Care Team Providers Care Armature Winder Repair Name Role Phone Unavailable Primary Care Provider Unavailabl e Encounter Details Date Type Department Care Team (Late st Contact Info) Description 07/22/2019 Transcribed Document [facility] [place] Family Medicine [address] [place] [address] ProviderSonia MD [address] [place], [place] [address] Social History Tobacco Use Types Packs/Day Years Used Date Smoking Tobacco: Never Assessed Comments Unknown Sex and Gender Information Value Date Recorded Sex Assigned at Not on file Legal Sex Female 1:42 PM CDT Gender Identity Not on file Sexual Orientation Not on file documented as of this encounter Miscellaneous Notes * Cerner Conversion Note - Sonia Boogie MD - 07/22/2019 8:11 AM APPLICATION COUNSELOR [facility] [place] IntraOp Summary Primary Physician: PEE VILLAR MD-ORT Finalized Date/Time: 07/22/19 10:49:22 Pt. Name: PHYLLIS AMARO Jovana Castellano/Sex: 1955 Female Med Rec #: [id number] Physician: PEE VILLAR MD-ORT Financial #: [id number] Pt. Type: I Room/Bed: [facility]/ Admit/Disch: 07/22/19 04:50:00 - Institution[place] [facility] [place] Case Attendance Entry 1 Entry 2 Entry 3 Case Attendee Suzan Mora RN OTHER, ATTENDEE #2 OTHER, ATTENDEE #1 Role Performed Machine Castings Plasterer, First Cell Saver Clay Dry Press Operator Vendor Time In 07/22/19 07:39:00 07/22/19 07:55:00 [...] SHADE FLOWERS, MINE NEVAREZ PA-C Role Performed PORT CAPTAIN/Nurse Otter Trawler Boatswain Scrub, Second Physician facility assistant Time In 07/22/19 07:39:00 07/22/19 07:39:00 [...] (REF) GANGA MEDINA CSA TECHNOLOGIST Role Performed Analysis Consultant Scrub, Skills Auditor, First Time In 07/22/19 07:39:00 07/22/19 07:39:00 [...] Closed By: Last Modified By: Suzan Mora, Suzan Acuña RN 07/22/19 09:37:19 07/22/19 09:37:19 SJ IntraOp Case Attendance Audit 07/22/19 09:37:19 Educational Psychology Professor: MARVEL Modifier: MARVEL 1 <+> Time Out [...] Procedure Hip Total Anterior Approach 07/22/19 09:24:13 Educational Psychology Professor: MARVEL Modifier: MARVEL 3 <+> Time Out 3 <*> Procedure Hip Total Anterior Approach 7 <+> Time Out 7 <*> Procedure Hip Total Anterior Approach 9 <+> Time Out 9 <*> Procedure Hip Total Anterior Approach 07/22/19 09:10:21 Educational Psychology Professor: MARVEL Modifier: MARVEL 1 <*> Case Attendee PEE VILLAR MD-ORT 1 <*> Role Performed Surgeon/Proceduralist, First 1 <*> Time In 07/22/19 08:08:00 1 <*> Procedure Hip Total Anterior Approach 2 <*> Case Attendee MICHELLE CALL PORT CAPTAIN 2 <*> Role Performed PORT CAPTAIN/Nurse Otter Trawler Boatswain 2 <*> Time In 07/22/19 07:39:00 2 <*> Procedure Hip Total Anterior Approach 3 <*> Case Attendee MINE HERRERA PA-C 3 <*> Role Performed Physician facility assistant 3 <*> Time In 07/22/19 08:45:00 3 <*> Procedure Hip Total Anterior Approach 3 <+> Other Attendee 4 <*> Case Attendee Suzan Mora, RN 4 <*> Role Performed Machine Castings Plasterer, First 4 <*> Time In 07/22/19 07:39:00 [...] GANGA MEDINA CSA 7 <*> Role Performed Integration Consultant, First 7 <*> Time In 07/22/19 07:39:00 7 <*> Procedure Hip Total Anterior Approach 8 <*> Case Attendee Tad Rose, VIDEO SYSTEM REPAIRER 8 <*> Role Performed Analysis Consultant 8 <*> Time In 07/22/19 07:39:00 8 <*> Procedure Hip Total Anterior Approach 9 <*> Case Attendee OTHER, ATTENDEE #1 9 <*> Role Performed Vendor 9 <*> Time In 07/22/19 07:39:00 9 <*> Procedure Hip Total Anterior Approach 9 <-> Other Attendee Chase JORDAN 10 <*> Case Attendee OTHER, ATTENDEE #2 10 <*> Role Performed Cell Saver Clay Dry Press Operator 10 <*> Time In 07/22/19 07:55:00 10 <+> Time Out 10 <*> Procedure Hip Total Anterior Approach 11 <*> Case Attendee Aminah Au, Wig Stylist 11 <*> Role Performed Assistive Personnel 11 <*> Time In 07/22/19 07:39:00 11 <*> Time Out 07/22/19 08:00:00 11 <*> Procedure Hip Total Anterior Approach 07/22/19 08:47:02 Educational Psychology Professor: MARVEL Modifier: MARVEL 3 <*> Time In 07/22/19 07:39:00 3 <*> Procedure Hip Total Anterior Approach 07/22/19 08:30:33 Educational Psychology Professor: MARVEL Modifier: MARVEL <+> 11 Case Attendee <+> 11 Role Performed <+> 11 Time In <+> 11 Time Out <+> 11 Procedure 07/22/19 08:29:26 Educational Psychology Professor: MARVEL Modifier: MARVEL 9 <*> Case Attendee OTHER, ATTENDEE 9 <*> Procedure Hip Total Anterior Approach <+> 10 Case Attendee <+> 10 Role Performed <+> 10 Time In <+> 10 Procedure 07/22/19 08:25:53 Educational Psychology Professor: MARVEL Modifier: MARVEL 1 <*> Procedure Hip [...] [facility] IntraOp Case Times Audit 07/22/19 09:37:14 Educational Psychology Professor: MARVEL Modifier: MARVEL <+> 1 Out Room [...] Communication By Suzan Mora RN Wellnitz, Sara, NICOLASA Date and Time 07/22/19 08:12:00 07/22/19 09:08:00 Last Modified By: Suzan Mora RN Wellnitz, Sara, RN 07/22/19 08:18:01 07/22/19 09:11:10 SJE IntraOp Communication Audit 07/22/19 09:11:10 Educational Psychology Professor: MARVEL Modifier: MARVEL <+> 2 Communication By [...] SJE IntraOp Counts Verification Audit 07/22/19 09:10:50 Educational Psychology Professor: MARVEL Modifier: MARVEL 2 <*> Procedure Hip [...] SJE IntraOp Counts Final Audit 07/22/19 09:30:27 Educational Psychology Professor: MARVEL Modifier: MARVEL 1 <*> Procedure Hip [...] MICHELLE CALL, Accompanied by Abby LAGUERRE Sara, NICOLASA Last Modified By: Suzan Mora RN 07/22/19 [...] RN 07/22/19 08:19:56 SJE IntraOp General Case Cso 1 Case Information OR OR 05 SJE Case Level 1 Room Verified Yes Wound Class I - Clean Specialty SN Orthopedic Anesthesia Type General ASA Class 3 Diagnosis Preop Diagnosis MODERATE DJD RIGHT HIP Postop Diagnosis SEE POST OP NOTE Last Modified By: Suzan Mora RN 07/22/19 08:45:56 SJE IntraOp General Case Data Audit 07/22/19 08:45:56 Educational Psychology Professor: MARVEL Modifier: MARVEL 1 <*> Preop Diagnosis DJD RIGHT HIP SJE IntraOp Implant Log Entry 1 Entry 2 Entry 3 Type Implant (Synthetic) Implant (Synthetic) Implant (Synthetic) Implant Log Implant Type Hardware Hardware Hardware Tissue Implant Type Implant LINER LGCL CUP 54MM SZ SHELL ACETAB 52MM 3 STEM HIP ORIGIN Identification [id number] Description Implant Quantity 1 1 1 Implant Site RIGHT HIP RIGHT HIP RIGHT HIP Implant Identification Model Number Implant Identification Serial Number Implant [id number] Identification Lot Number Implant Paxeon Reconstruction Paxeon Reconstruction Paxeon Reconstruction Identification Forging Machine Hand Name: Implant [id number] Identification Catalog Number Implant Size Implant Has an Yes Yes Yes Expiration Date Implant Expiration 03/02/24 12/22/23 12/01/23 Date Wasted Radioactive Material Time Implanted Tissue Implant Continue for Tissue Implant Documentation Tissue Identification Number Graft Prep Per Forging Machine Hand Instructions: Tissue Preparation Method: Reconstitution Solution: Reconstitution Solution Lot Number Reconstitution Solution Expiration Date: Thawing Solution Thawing Solution Lot Number Thawing Solution Expiration Date Preparation Materials, Other Preparation Materials, Other Lot Number Preparation Materials, Other Expiration Date Tissue Prepared/Processed By Forging Machine Hand Paperwork Completed Implant Type Comment Last Modified By: Suzan Mora, Suzan Acuña RN Wellnitz, Sara, RN 07/22/19 09:09:53 07/22/19 09:09:53 07/22/19 09:45:20 Entry 4 Type Implant (Synthetic) Implant Log Implant Type Hardware Tissue Implant Type Implant HEAD FEM CERC [id number] 36MM Identification [id number] Description Implant Quantity 1 Implant Site RIGHT HIP Implant Identification Model Number Implant Identification Serial Number Implant [id number] Identification Lot Number Implant Paxeon Reconstruction Identification Forging Machine Hand Name: Implant [id number] Identification Catalog Number Implant Size Implant Has an Yes Expiration Date Implant Expiration 06/02/24 Date Wasted Radioactive Material Time Implanted Tissue Implant Continue for Tissue Implant Documentation Tissue Identification Number Graft Prep Per Forging Machine Hand Instructions: Tissue Preparation Method: Reconstitution Solution: Reconstitution Solution Lot Number Reconstitution Solution Expiration Date: Thawing Solution Thawing Solution Lot Number Thawing Solution Expiration Date Preparation Materials, Other Preparation Materials, Other Lot Number Preparation Materials, Other Expiration Date Tissue Prepared/Processed By Forging Machine Hand Paperwork Completed Implant Type Comment Last Modified By: Suzan Mora RN 07/22/19 09:45:20 SJE IntraOp Implant Log Audit 07/22/19 09:45:20 Educational Psychology Professor: MARVEL Modifier: GLORIAA <+> 3 Implant Identification Description <+> 3 Implant Identification Lot Number <+> 3 Implant Identification Forging Machine Hand Name: <+> 3 Implant Expiration Date <+> 3 Implant Identification Catalog Number <+> 4 Implant Identification Description <+> 4 Implant Identification Lot Number <+> 4 Implant Identification Forging Machine Hand Name: <+> 4 Implant Expiration Date <+> 4 Implant Identification Catalog Number 07/22/19 09:09:53 Educational Psychology Professor: MARVEL Modifier: WELLNISA <+> 1 Implant Identification Description <+> 1 Implant Identification Lot Number <+> 1 Implant Identification Forging Machine Hand Name: <+> 1 Implant Expiration Date <+> 1 Implant Identification Catalog Number <+> 2 Implant Identification Description <+> 2 Implant Identification Lot Number <+> 2 Implant Identification Forging Machine Hand Name: <+> 2 Implant Expiration Date <+> [...] SJE IntraOp Intraoperative Assessment Audit 07/22/19 08:20:38 Educational Psychology Professor: MARVEL Modifier: MARVEL <+> 1 Patient is Latex Sensitive SJE [...] vancomycin 1Gm vial - ANESTHETIC 1000MG/10 ML [id number] COCKTAIL-JIAN [id number] Combo Med List Time Administered Route of [...] Entry 4 Medication/Irrigant heparin 1000units/ml 10ml - [id number] Combo Med List Time Administered Route of CELL SAVER Administration Dose Dose 45575 Unit of Measure units Volume 30ML Administered By OTHER, ATTENDEE #2 Procedure Irrigation Irrigant Volume In Irrigant Volume Out Last Modified By: Suzan Mora RN 07/22/19 08:29:49 SJE IntraOp Medication Admin Audit 07/22/19 08:29:49 Educational Psychology Professor: MARISSAALESSANDRAIsael Modifier: MARVEL 4 <*> Medication/Irrigant heparin 1000units/ml 10ml - [id number] <+> Administered By SJE IntraOp Patient [...] BOOT Positioned By Suzan Mora, NICOLASA, MICHELLE CALL, SHADE, Au, Aminah, Wig Stylist Position Verified Positioning Yes Verified by Anesthesia Positioning Yes Verified by Surgeon Last Modified By: Suzan Mora RN 07/22/19 08:35:00 SJE IntraOp Patient Positioning Audit 07/22/19 08:35:00 Educational Psychology Professor: MARVEL Modifier: MARVEL 1 <*> Procedure Hip [...] SJE IntraOp Skin Prep Audit 07/22/19 10:49:21 Educational Psychology Professor: MARVEL Modifier: MARVEL 1 <+> Methods 1 [...] SJE IntraOp Surgical Procedures Audit 07/22/19 09:30:50 Educational Psychology Professor: MARVEL Modifier: MARVEL 1 <*> Procedure Hip Total Anterior Approach 1 <+> Stop SJE IntraOp Temp Regulation Devices Entry 1 Temp Regulation Temperature Forced Air Warming Regulation Device device Temperature 4765 Regulation Device Serial/Unit Number Temperature Upper body Regulation Site Temperature JOSÉ MIGUEL CALLA A, PORT CAPTAIN Regulation Device Applied by Last Modified By: [...] Type C-Arm Site RIGHT HIP AND PELVIS Meringuer Name Tad Rose, VIDEO SYSTEM REPAIRER Protective Devices Yes Used Last Modified By: [...]
--- OUTSIDE RECORDS SUMMARY | 2025-07-20 11:22 | XMS_ITS | Encounter Summary ---
Author Organization [employer] ([place], [place], [place], [place], [place]) Address [address] [place] [address] Care Team Providers Care Associate Quality Engineer Name Role Phone Unavailable Primary Care Provider Unavailabl e Encounter Details Date Type Department Care Team (Late st Contact Info) Description 08/02/2019 Transcribed Document [facility] [place] [facility] [place] [address] ProviderSonia MD [address] [place] [id number] Social History Tobacco Use Types Packs/Day Years Used Date Smoking Tobacco: Never Assessed Comments Unknown Sex and Gender Information Value Date Recorded Sex Assigned at Not on file Legal Sex Female 1:42 PM CDT Gender Identity Not on file Sexual Orientation Not on file documented as of this encounter Miscellaneous Notes * Cerner Conversion Note - Sonia ProviderMD - 08/02/2019 1:27 PM ELECTRICIAN CONTROL EQUIPMENT Discharge Summary, PT Entered On: 08/02/2019 13:29 EST Performed On: 08/02/2019 13:27 EST by SUE HERNANDEZ PTA Discharge Summary Reason for Discharge : Discharged from hospital Discharged to, Therapy : Unit, rehabilitation SUE HERNANDEZ PTA - 08/02/2019 13:27 EST Discharge Summary Comment, PT : Patient will discharge tp rehab facility follow up from [facility] on 08/02/19 having met 1/3 acute [...] MAKEDA ANN, PT - 08/02/2019 14:04 EST Mcc Goals Other PT LTG Grid Goal #1 [...] increase safety for mobility at acute care NV. Pt will amb at leats 25 feet with RWx and no more than Ankita without LOB or safety concerns to faciilitate household vs facility mobiity including bathroom useage. Pt will ascend/descend 1 platform step with RWx and no more than modAx1 without LOB or safety concerns to safely access home at acute care NV, or verbalize understaning for step/curb navigation if DC to rehab setting. Date to Meet : 07/29/2019 EST 07/29/2019 EST 07/29/2019 EST 07/29/2019 EST Goal Status : Goal met Progressing, continue Progressing, continue Discontinue Date Met : 07/28/2019 EST Comment : 08/02/19: pt being d/c to rehab prior to being d/c home with family SUE HERNANDEZ, SUPPLY CHAIN LOGISTICS MANAGER - 08/02/2019 13:27 EST SUE HERNANDEZ, SUPPLY CHAIN LOGISTICS MANAGER - 08/02/2019 13:27 EST SUE HERNANDEZ, SUPPLY CHAIN LOGISTICS MANAGER - 08/02/2019 13:27 EST SUE HERNANDEZ, SUPPLY CHAIN LOGISTICS MANAGER - 08/02/2019 13:27 EST documented in this encounter Plan of Treatment Not on file documented as of this encounter Visit Diagnoses Not on filedocumented in this encounter
--- OUTSIDE RECORDS SUMMARY | 2025-07-20 11:22 | XMS_ITS | Encounter Summary ---
Author Organization [employer] ([place], [place], [place], [place], [place]) Address [address] [place] [address] Care Team Providers Care Security Shift Supervisor Name Role Phone Unavailable Primary Care Provider Unavailabl e Encounter Details Date Type Department Care Team (Late st Contact Info) Description 07/22/2019 Transcribed Document [facility] [place] [address] [place] [address] ProviderSonia MD [address] [place], [place] [address] Social History Tobacco Use Types Packs/Day Years Used Date Smoking Tobacco: Never Assessed Comments Unknown Sex and Gender Information Value Date Recorded Sex Assigned at Not on file Legal Sex Female 1:42 PM CDT Gender Identity Not on file Sexual Orientation Not on file documented as of this encounter Miscellaneous Notes * Cerner Conversion Note - Sonia Boogie MD - 07/22/2019 8:11 AM IOS ARCHITECT [facility] Main OR PreOp Summary Primary Physician: PEE VILLAR MD-ORT Finalized Date/Time: 08/01/19 08:35:37 Pt. Name: SANDIE AMARO Jovana AnthonyB./Sex: 1955 Female Med Rec #: [id number] Physician: PEE VILLAR MD-ORT Financial #: [id number] Pt. Type: I Room/Bed: 427/1 Admit/Disch: 07/22/19 04:50:00 - [place] [facility] [place] Times Entry 1 In Preop 07/22/19 05:30:00 Ready for Holding n/a Room Patient Ready for 07/22/19 06:35:00 Surgery Patient Out of Preop 07/22/19 07:35:00 Patient Out of n/a Holding Room Last Modified By: TIMOTHY OMALLEY 08/01/19 08:35:34 SJNeal PreOp Case Times Audit 08/01/19 08:35:34 Commercial Real Estate Associate: ZA Modifier: [email or web address] <+> 1 Patient Out of Preop Finalized By: TIMOTHY OMALLEY Document Signatures Signed By: TIMOTHY OMALLEY 08/01/19 08:35 documented in this encounter Plan of Treatment Not on file documented as of this encounter Visit Diagnoses Not on filedocumented in this encounter
--- OUTSIDE RECORDS SUMMARY | 2025-07-20 11:22 | XMS_ITS | Encounter Summary ---
Author Organization [employer] ([place], [place], [place], [place], [place]) Address [address] [place] [address] Care Team Providers Care Chainstitch Binder Name Role Phone Unavailable Primary Care Provider Unavailabl e Encounter Details Date Type Department Care Team (Late st Contact Info) Description 08/02/2019 Transcribed Document [facility] [place] [facility] [place] [address] ProviderSonia MD [facility] [place] [address] Social History Tobacco Use Types Packs/Day Years Used Date Smoking Tobacco: Never Assessed Comments Unknown Sex and Gender Information Value Date Recorded Sex Assigned at Not on file Legal Sex Female 1:42 PM CDT Gender Identity Not on file Sexual Orientation Not on file documented as of this encounter Miscellaneous Notes * Cerner Conversion Note - Sonia ProviderMD - 08/02/2019 11:40 AM COMMUNITY ASSOCIATE Patient: SANDIE FRANK Age: 63 Years Sex: Female : 1955 Admit Date 07/22/2019 04:50 Discharge Date No Discharge Date on Record Primary Care Provider LEOPOLDO TEJADA (REF[facility] Discharge Diagnosis S/p Right Total Hip [...] azelastine 205.5 mcg/inh (0.15%) nasal spray 2 [place], PRN, Nasal, BID biotin 5 mg, Oral, [...] 50,000 Int Units = 1 Cap, Oral, V9Vxzcy donepezil 23 mg, Oral, Daily famotidine 40 mg, Oral, BID Flax Seed Oil 1,200 mg, Oral, BID Flonase 1 [place], Nostrils Both, BID gabapentin 100 mg oral [...] on Discharge fair Consulting Physicians PARIS ESCOBAR MD-GENEVA APONTE DO-ANS QUISENBERRY, THOMAS E, MD-INT Current Diet [...] mins Electronically signed by Ivelisse Camargo Conversion Photolettering Machine Operator Cerner at 11/19/2022 8:43 PM CDT documented in this encounter Plan of Treatment Not on file documented as of this encounter Visit Diagnoses Not on filedocumented in this encounter
--- OUTSIDE RECORDS SUMMARY | 2025-07-20 11:22 | XMS_ITS | Encounter Summary ---
Author Organization [employer] ([place], [place], [place], [place], [place]) Address [address] [place] [address] Care Team Providers Care Visual Design Lead Name Role Phone Unavailable Primary Care Provider Unavailabl e Encounter Details Date Type Department Care Team (Late st Contact Info) Description 08/02/2019 Transcribed Document [facility] [place] [place] Medicine [address] [place] [address] ProviderSonia MD [address] [place], [place] [address] Social History Tobacco Use Types Packs/Day Years Used Date Smoking Tobacco: Never Assessed Comments Unknown Sex and Gender Information Value Date Recorded Sex Assigned at Not on file Legal Sex Female 1:42 PM CDT Gender Identity Not on file Sexual Orientation Not on file documented as of this encounter Miscellaneous Notes * Cerner Conversion Note - Sonia ProviderMD - 08/02/2019 2:00 AM DOOR WORKER Chief Dog License Inspector Details Entered On: 08/02/2019 1:26 EST Performed [...]
--- OUTSIDE RECORDS SUMMARY | 2025-07-20 11:22 | XMS_ITS | Encounter Summary ---
Author Organization [employer] ([place], [place], [place], [place], [place]) Address [address] [place] [address] Care Team Providers Care Reimbursement Rep Name Role Phone Unavailable Primary Care Provider Unavailabl e Encounter Details Date Type Department Care Team (Late st Contact Info) Description 07/22/2019 Transcribed Document [facility] [place] Family Medicine [address] [place] [address] ProviderSonia MD [address] [place], [place] [address] Social History Tobacco Use Types Packs/Day Years Used Date Smoking Tobacco: Never Assessed Comments Unknown Sex and Gender Information Value Date Recorded Sex Assigned at Not on file Legal Sex Female 1:42 PM CDT Gender Identity Not on file Sexual Orientation Not on file documented as of this encounter Miscellaneous Notes * Cerner Conversion Note - Sonia ProviderMD - 07/22/2019 2:00 PM INTERNAL REVENUE AGENT Pain Assessment Entered On: 07/22/2019 18:30 EST [...]
--- OUTSIDE RECORDS SUMMARY | 2025-07-20 11:22 | XMS_ITS | Encounter Summary ---
Author Organization [employer] ([place], [place], [place], [place], [place]) Address [address] [place] [address] Care Team Providers Care Ophthalmic Tech Name Role Phone Unavailable Primary Care Provider Unavailabl e Encounter Details Date Type Department Care Team (Late st Contact Info) Description 08/02/2019 Transcribed Document [facility] [place] [address] [place] [address] ProviderSonia MD [address] [place], [place] [address] Social History Tobacco Use Types Packs/Day Years Used Date Smoking Tobacco: Never Assessed Comments Unknown Sex and Gender Information Value Date Recorded Sex Assigned at Not on file Legal Sex Female 1:42 PM CDT Gender Identity Not on file Sexual Orientation Not on file documented as of this encounter Miscellaneous Notes * Cerner Conversion Note - Sonia ProviderMD - 08/02/2019 12:55 PM NURSE SITTER Nursing Discharge Summary Entered On: 08/02/2019 12:56 EST Performed On: 08/02/2019 12:55 EST by Aimee Willis RN Discharge Documentation Patient Disposition, General : Discharge Discharge To : Other: [facility] Mode Of Departure, General Discharge : Private [...] 08/02/2019 12:55 EST Electronically signed by Raman Cox Branson Conversion Customer Operations Intern Cerner at 11/19/2022 8:39 PM CDT documented in this encounter Plan of Treatment Not on file documented as of this encounter Visit Diagnoses Not on filedocumented in this encounter
--- OUTSIDE RECORDS SUMMARY | 2025-07-20 11:23 | XMS_ITS | Encounter Summary ---
[facility] Address [address] [place] [address] Care Team Providers Care Teacher Of The Handicapped Name Role Phone Marc Rodriguez MD Primary Care Provider [phone] Encounter Details Date Type Department Care Team (Late st Contact Info) Description 09/19/2015 External CPT II CHIEF METER READER - [facility] Social History Tobacco Use [...] 07/25/2025 9:00 AM EST Appointment [facility] NONINVASIVE LAB [address] [address] 07/25/2025 12:15 PM EST Appointment [facility] CARDIOVASCULAR LAB [address] [place] [address] 07/25/2025 1:45 PM EST Appointment [facility] [address] [place] [address] 01/11/2026 9:30 AM EDT Office Visit [facility] PULMONARY & CRITICAL CARE MEDICINE [address] [place] [address] Kaitlin Joiner, PLANT ATTENDANT OR ASSISTANT OPERATOR [address] [place] [address] documented as of this encounter Visit Diagnoses [...] documented as of this encounter Care Teams Teacher Of The Handicapped Relationship Specialty Start Date End Date Marc Rodriguez MD [address] [facility] [address] [place] [address] PCP - General Adolescent Medicine 12/08/16 documented as of this encounter
--- OUTSIDE RECORDS SUMMARY | 2025-07-20 11:23 | XMS_ITS | Encounter Summary ---
Author Organization [employer] ([place], [place], [place], [place], [place]) Address [address] [place] [address] Care Team Providers Care Medical Office Receptionist Assistant Name Role Phone Unavailable Primary Care Provider Unavailabl e Encounter Details Date Type Department Care Team (Late st Contact Info) Description 07/22/2019 Transcribed Document [facility] [place] Medicine [address] [place] [address] ProviderSonia MD [address] [place], [place] [address] Social History Tobacco Use Types Packs/Day Years Used Date Smoking Tobacco: Never Assessed Comments Unknown Sex and Gender Information Value Date Recorded Sex Assigned at Not on file Legal Sex Female 1:42 PM CDT Gender Identity Not on file Sexual Orientation Not on file documented as of this encounter Miscellaneous Notes * Cerner Conversion Note - Sonia Boogie MD - 07/22/2019 2:31 PM ORGAN BUILDER Initial Discharge Planning Entered On: 07/22/2019 14:43 EST Performed On: 07/22/2019 14:31 EST by RAKEL WOODRUFF SW Initial Assessment I Previously Documented Living Environment : No qualifying data available. Living Situation : Home Patient Lives With : Spouse Emergency Contact #1 : Jose Emergency Contact # Emergency Contact #1 Relationship : spouse Emergency Contact #2 : -Angeline Emergency Contact #2 Phone Number : -[phone] Emergency Contact #2 Relationship : -daughter Enter [...] Maybe Discharge Options Discussed with Patient : [facility] [place] Health, Short term rehabilitation RAKEL WOODRUFFRINKU - 07/22/2019 14:31 EST Narrative Note Narrative Note : Met with pt and spouse to assess d/c needs. pt is 63 yo female who resides in [place] with spouse. Pt has Right Total Knee Surgery this morning with Dr. Ramos. Spouse request SNF placement at D/C and states they were receommended by MD to go to the [facility]. They also have been to [facility] in the past and were pleased and would consider them as well. Pt has seen pt today and has also recommended SNF. Spouse states they will do outpatient PT after SNF placement. Spouse reports pt has Cane, Walker, Wheelchair at home. Will make referrals to [facility] and [facility] for SNF placement in [facility]. Pt has Medicare primary and would require 3 night stay. WOODRUFFRAKELRINKU - 07/22/2019 14:31 EST documented in this encounter Plan of Treatment Not on file documented as of this encounter Visit Diagnoses Not on filedocumented in this encounter
--- OUTSIDE RECORDS SUMMARY | 2025-07-20 11:23 | XMS_ITS | Encounter Summary ---
[facility] Address [address] [place] [address] Care Team Providers Care Aging Box Hand Name Role Phone Marc Rodriguez MD Primary Care Provider [phone] Encounter Details Date Type Department Care Team (Late st Contact Info) Description 08/20/2015 External CPT II TAPPER OPERATOR - [facility] Social History Tobacco [...] Appointment [facility] NONINVASIVE LAB [address] [address] 07/25/2025 12:15 PM EST Appointment [facility] CARDIOVASCULAR LAB [address] [place] [address] 07/25/2025 1:45 PM EST Appointment [facility] CARDI[facility] [address] [place] [address] 01/11/2026 9:30 AM EDT Office Visit [facility] PULMONARY & CRITICAL CARE MEDICINE [address] [place] [address] Kaitlin Joiner, REGIONAL RETAIL SALES MANAGER [address] [place] [address] documented as of this encounter Visit Diagnoses [...] documented as of this encounter Care Teams Aging Box Hand Relationship Specialty Start Date End Date Marc Rodriguez MD [address] [facility] [address] [place] [address] PCP - General Adolescent Medicine 12/08/16 documented as of this encounter
--- OUTSIDE RECORDS SUMMARY | 2025-07-20 11:23 | XMS_ITS | Encounter Summary ---
Author Organization [facility] Address [address] [place] [address] Care Team Providers Care Captain Fishing Vessel Name Role Phone Marc Rodriguez MD Primary Care Provider [phone] Encounter Details Date Type Department Care Team (Late st Contact Info) Description 10/16/2015 External CPT II CAR TOP BOLTER - [facility] Social History Tobacco Use [...] Info) Description 07/25/2025 9:00 AM EST Appointment [facility] NONINVASIVE LAB [address] [address] 07/25/2025 12:15 PM EST Appointment [facility] CARDIOVASCULAR LAB [address] [place] [address] 07/25/2025 1:45 PM EST Appointment [facility] CARDIOV[facility]ULAR LAB [address] [place] [address] 01/11/2026 9:30 AM EDT Office Visit [facility] PULMONARY & CRITICAL CARE MEDICINE [address] [place] [address] Kaitlin Joiner, GLASS LATHE OPERATOR [address] [place] [address] documented as of this encounter Visit Diagnoses [...] documented as of this encounter Care Teams Captain Fishing Vessel Relationship Specialty Start Date End Date Marc Rodriguez MD [address] [facility] [address] [place] [address] PCP - General Adolescent Medicine 12/08/16 documented as of this encounter
--- OUTSIDE RECORDS SUMMARY | 2025-07-20 11:23 | XMS_ITS | Encounter Summary ---
Author Organization Healthcare Address [address] [place] [address] Care Team Providers Care Supervisor Power Reactor Name Role Phone Marc Rodriguez MD Primary Care Provider [phone] Edgardo Zuñiga MD Unavailable [phone] Giulia Briggs Unavailable [phone] Edgardo Zuñiga MD Unavailable [phone] Esther Mathew Unavailable [phone] Reason for Visit * Reason Onset Date Comments HCN Clinical Concern/Question 05/08/2025 Encounter Details Date Type Department Care Team (Late st Contact Info) Description 05/08/2025 Telephone Physical Medicine & Rehabilitation Clinic at [facility] [address] [place] [address] Suzan Galindo DO [address] [facility] [address] [place] [address] HCN Clinical Concern/Question Social History [...] I will send her a message on [employer] * Telephone Encounter - Preeti Delacruz - 05/08/2025 11:28 AM EDT Called pt she [place] and she wanted to do [...] orders for her liver Best contact number: [phone] (mobile) Optimal time of day to reach caller: ANYTIME Additional comments/information from caller: None Note: Please do not reply to this message. Follow-up communication and further actions as a result of this message need to be communicated with the patient directly, if the patient is not active onMyChart. If the patient is active on MyChart, they will receive notification of the communication/outcome via [employer]. documented in this encounter Plan of Treatment Upcoming Encounters Date Type Department Care Team (Late st Contact Info) Description 08/23/2025 11:35 AM EST Appointment [facility] [address] 1st [place] [address] 09/11/2025 11:50 AM EST Office Visit [facility] [address] [place] [address] Suzan Galindo, [address] [place] [address] 03/07/2026 9:20 AM EDT Office Visit [facility] Orthopaedic Surgery & Sports Medicine [address] 1[address] [place] [address] Edgardo Zuñiga MD [address] [place] [address] documented as of this [...] as of this encounter Care Teams Supervisor Power Reactor Relationship Specialty Start Date End Date Marc Rodriguez MD [address] [place] [address] PCP - General 12/14/20 Edgardo Zuñiga MD [address] [place] [address] Surgeon Neurosurgery 03/04/21 Giulia Briggs PA [address] [place] [address] Physician Wireless Sales Associate Neurosurgery 07/03/21 Edgardo Zuñiga MD [address] [place] [address] Surgeon Neurosurgery 09/16/21 Esther Mathew PA [address] [place] [address] Physician Wireless Sales Associate Neurology 11/19/22 documented as of this encounter
--- OUTSIDE RECORDS SUMMARY | 2025-07-20 11:23 | XMS_ITS | Encounter Summary ---
Author Organization Healthcare Address [address] [place] [address] Care Team Providers Care Time Study Analyst Name Role Phone Marc Rodriguez MD Primary Care Provider [phone] Edgardo Zuñiga MD Unavailable [phone] Giulia Briggs Unavailable [phone] Edgardo Zuñiga MD Unavailable [phone] Esther Mathew Unavailable [phone] Reason for Visit * Reason Comments Med Refill Encounter Details Date Type Department Care Team (Late st Contact Info) Description 07/06/2025 [facility]ill [place] [facility] [address] [place] [address] Esther Mathew PA [address] [place] [address] Social History Tobacco Use Types [...] the past 12 months has th e Recorded Future, gas, oil, or water [employer] threatened to shut off services in your home? No 05/13/2024 Comments No Sex and Gender Information Value Date Recorded Sex Assigned at Female 07/31/2021 6:10 AM EST Legal Sex Female 8:40 PM EDT Gender Identity Female 07/31/2021 6:10 AM EST Sexual Orientation Not on file documented as of this encounter Miscellaneous Notes * Telephone Encounter - Rosalinda Zavala, PharmD - 07/06/2025 12:37 PM EST 1 medication(s) has been approved per protocol. documented in this encounter Plan of Treatment Upcoming Encounters Date Type Department Care Team (Late st Contact Info) Description 08/23/2025 11:35 AM EST Appointment [facility] [address]st [place] [address] 09/11/2025 11:50 AM EST Office Visit [facility] [address] [place] [address] Suzan Galindo DO [address] [place] [address] 03/07/2026 9:20 AM EDT [facility] Medicine [address] 1[address] [place] [address] Edgardo Zuñiga MD [address] [place] [address] documented as of this encounter [...] documented as of this encounter Care Teams Time Study Analyst Relationship Specialty Start Date End Date Marc Rodriguez MD [address] [place] [address] PCP - General 12/14/20 Edgardo Zuñiga MD [address] [place] [address] Surgeon Neurosurgery 03/04/21 Giulia Briggs PA [address] [place] [address] Physician Dipper And Drier Neurosurgery 07/03/21 Edgardo Zuñiga MD [address] [place] [address] Surgeon Neurosurgery 09/16/21 Esther Mathew PA [address] [place] [address] Physician Dipper And Drier Neurology 11/19/22 documented as of this encounter
--- OUTSIDE RECORDS SUMMARY | 2025-07-20 11:23 | XMS_ITS | Encounter Summary ---
[facility] Address [address] [place] [address] Care Team Providers Care Supervisor Stave Finishing Name Role Phone Marc Rodriguez MD Primary Care Provider [phone] Encounter Details Date Type Department Care Team (Late st Contact Info) Description 07/31/2015 External CPT II MUSIC THERAPY SPECIALIST - [facility] Social History Tobacco [...] Info) Description 07/25/2025 9:00 AM EST Appointment [facility] NONINVASIVE LAB [address] [address] 07/25/2025 12:15 PM EST Appointment [facility] CARDIOVASCULAR LAB [address] [place] [address] 07/25/2025 1:45 PM EST Appointment [facility] CARDIOVASCULAR LAB [address] [place] [address] 01/11/2026 9:30 AM EDT Office Visit [facility] MEDICAL [facility] PULMONARY & CRITICAL CARE MEDICINE [address] [place] [address] Kaitlin Joiner, RECORD LABEL INTERN [address] [place] [address] documented as of this encounter Visit Diagnoses [...] as of this encounter Care Teams Supervisor Stave Finishing Relationship Specialty Start Date End Date Marc Rodriguez MD [address] [facility] [address] [place] [address] PCP - General Adolescent Medicine 12/08/16 documented as of this encounter
--- OUTSIDE RECORDS SUMMARY | 2025-07-20 11:23 | XMS_ITS | Encounter Summary ---
Author Organization Healthcare Address [address] [place] [address] Care Team Providers Care Plant Facilities Technician Name Role Phone Marc Rodriguez MD Primary Care Provider [phone] Edgardo Zuñiga MD Unavailable [phone] Giulia Briggs Unavailable [phone] Edgardo Zuñiga MD Unavailable [phone] Esther Mathew Unavailable [phone] Encounter Details Date Type Department Care Team (Latest Contact Info) Description 07/05/2025 Travel Social History Tobacco Use Types Packs/Day [...] S Radiology [address] 1st [place] [address] 09/11/2025 11:50 AM EST Office Visit [facility] [address] [place] [address] Suzan Galindo, [address] [place] [address] 03/07/2026 9:20 AM EDT Office Visit [facility] Orthopaedic Surgery & Sports Medicine [address] [place] [address] Edgardo Zuñiga MD [address] [place] [address] documented as of this encounter [...] as of this encounter Care Teams Plant Facilities Technician Relationship Specialty Start Date End Date Marc Rodriguez MD [address] [place] [address] PCP - General 12/14/20 Edgardo Zuñiga MD [address] [place] [address] Surgeon Neurosurgery 03/04/21 Giulia Briggs PA [address] [place] [address] Physician Case Resolution Specialist Neurosurgery 07/03/21 Edgardo Zuñiga MD [address] [place] [address] Surgeon Neurosurgery 09/16/21 Esther Mathew PA [address] [place] [address] Physician Case Resolution Specialist Neurology 11/19/22 documented as of this encounter
--- OUTSIDE RECORDS SUMMARY | 2025-07-20 11:23 | XMS_ITS | Encounter Summary ---
Author Organization [employer] ([place], [place], [place], [place], [place]) Address [address] [place] [address] Care Team Providers Care Marbleizing Machine Tender Name Role Phone Unavailable Primary Care Provider Unavailabl e Encounter Details Date Type Department Care Team (Late st Contact Info) Description 08/02/2019 Transcribed Document [facility] [place] Family Medicine [address] [place] [address] ProviderSonia MD [address] [place], [place] [address] Social History Tobacco Use Types Packs/Day Years Used Date Smoking Tobacco: Never Assessed Comments Unknown Sex and Gender Information Value Date Recorded Sex Assigned at Not on file Legal Sex Female 1:42 PM CDT Gender Identity Not on file Sexual Orientation Not on file documented as of this encounter Miscellaneous Notes * Cerner Conversion Note - Sonia ProviderMD - 08/02/2019 5:00 AM TOOL HARDENER Chart Check - Review Order Profile Entered [...]
--- OUTSIDE RECORDS SUMMARY | 2025-07-20 11:23 | XMS_ITS | Encounter Summary ---
Author Organization Healthcare Address [address] [place] [address] Care Team Providers Care Cosmetic Maker Name Role Phone Marc Rodriguez MD Primary Care Provider [phone] Edgardo Zuñiga MD Unavailable [phone] Giulia Briggs Unavailable [phone] Edgardo Zuñiga MD Unavailable [phone] Esther Mathew Unavailable [phone] Encounter Details Date Type Department Care Team (Latest Contact Info) Description 07/06/2025 Travel Social History Tobacco Use Types Packs/Day [...] S Radiology [address] 1st [place] [address] 09/11/2025 11:50 AM EST Office Visit [facility] [address] [place] [address] Suzan Galindo, [address] [place] [address] 03/07/2026 9:20 AM EDT Office Visit [facility] Orthopaedic Surgery & Sports Medicine [address] [place] [address] Edgardo Zuñiga MD [address] [place] [address] documented as of this encounter [...] documented as of this encounter Care Teams Cosmetic Maker Relationship Specialty Start Date End Date Marc Rodriguez MD [address] [place] [address] PCP - General 12/14/20 Edgardo Zuñiga MD [address] [place] [address] Surgeon Neurosurgery 03/04/21 Giulia Briggs PA [address] [place] [address] Physician Caustic Loader Neurosurgery 07/03/21 Edgardo Zuñiga MD [address] [place] [address] Surgeon Neurosurgery 09/16/21 Esther Mathew PA [address] [place] [address] Physician Caustic Loader Neurology 11/19/22 documented as of this encounter
--- OUTSIDE RECORDS SUMMARY | 2025-07-20 11:24 | XMS_ITS | Encounter Summary ---
Author Organization Healthcare Address [address] [place] [address] Care Team Providers Care Aircraft Dispatcher Name Role Phone Marc Rodriguez MD Primary Care Provider [phone] Edgardo Zuñiga MD Unavailable [phone] Giulia Briggs Unavailable [phone] Edgardo Zuñiga MD Unavailable [phone] Esther Mathew Unavailable [phone] Reason for Visit * Reason Onset Date Comments HCN - Patient Message 05/09/2025 Encounter Details Date Type Department Care Team (Late st Contact Info) Description 05/09/2025 Telephone Physical Medicine & Rehabilitation Clinic at [facility] [address] [place] [address] Suzan Galindo DO [address] [facility] [address] [place] [address] HCN - Patient Message Social [...] clinic for the results. Best contact number: [phone] (mobile) Optimal time of day to reach caller: ANYTIME Additional comments/information from caller: None Note: Please do not reply to this message. Follow-up communication and further actions as a result of this message need to be communicated with the patient directly, if the patient is not active onMyChart. If the patient is active on MyChart, they will receive notification of the communication/outcome via [employer]. documented in this encounter Plan of Treatment Upcoming Encounters Date Type Department Care Team (Late st Contact Info) Description 08/23/2025 11:35 AM EST Appointment [facility] [address] [place] [address] 09/11/2025 11:50 AM EST Office Visit [facility] at [facility] [address] [place] [id number] Suzan Galindo, [address] [place] [address] 03/07/2026 9:20 AM EDT Office Visit [facility] [address] [place] [address] Edgardo Zuñiga MD [address] [place] [address] documented as of this encounter [...] as of this encounter Care Teams Aircraft Dispatcher Relationship Specialty Start Date End Date Marc Rodriguez MD [address] MAXIMILIANO Jimenez [id number] PCP - General 12/14/20 Edgardo Zuñiga MD [address] [place] [address] Surgeon Neurosurgery 03/04/21 Giulia Briggs PA [address] [place] [address] Physician Plate Mounter Neurosurgery 07/03/21 Edgardo Zuñiga MD [address] [place] [address] Surgeon Neurosurgery 09/16/21 Esther Mathew PA [address] [place] [address] Physician Plate Mounter Neurology 11/19/22 documented as of this encounter
--- OUTSIDE RECORDS SUMMARY | 2025-07-20 11:24 | XMS_ITS | Clinical Summary ---
Author Organization [facility] , [facility] Address [address] [place] [address] Phone Care Team Providers Care Customer Service Supervisor Name Role Phone TERRELL PHIPPS, LEOPOLDO Unavailable [phone] HARRIETT PHIPPS, EFFIE Koenig Primary Care Provider [phone] Yareli PHIPPS, Brian Shelton Unavailable [phone] Reason for Visit and Chief Complaint The Chief Complaint is: Bilateral knee pain Problems Includes: Problems addressed during this encounter and other active Problems Current Visit Onset Date Date of Diagnosis Resolved Date Provider Condition Status Joint Pain in Both Knees 11/07/2024 11/07/2024 Missael Avalos PA-C Active Last Documented On 5 1:43AM ; [facility], [facility] Past Visits Onset Date Date of Diagnosis Resolved Date Provider Condition Status Joint Pain Hip Right 06/08/2019 06/08/2019 Patrick Newton MD Active Last Documented On 5 1:39AM ; [facility], [facility] Joint Pain Shoulder Bilateral 08/20/2017 08/20/2017 Giancarlo Wood MD Active Last Documented On 5 1:39AM ; [facility], [facility] Joint Pain Shoulder 06/17/2017 06/17/2017 Amy Jimenez MD Active Last Documented On 5 1:39AM ; [facility], [facility] Right Forearm Bone Pain 01/09/2017 01/09/2017 Peace Jimenez MD Active Last Documented On 5 1:38AM ; [facility], [facility] Carpal Tunnel Syndrome 03/23/2015 03/23/2015 Hammad Downs MD Active Last Documented On 5 1:38AM ; [facility], [facility] Plan of Treatment - Patient screened for future fall risk: documentation of any fall with injury in past year - Last Documented On 11/07/2024 8:50AM ; [facility], [facility] Fall Risk Assessment: This patient has been [...] - Last Documented On 11/07/2024 8:50AM ; [facility], [facility] Patient underwent a relatively large spinal fusion at [facility] this past summer. This is 2nd or [...] - Last Documented On 11/07/2024 8:50AM ; [facility] Instructions to patient Instructions for patient to see pcp for bp and wt Last Documented On 5 7:55AM ; [facility] Lose weight Last Documented On 5 7:55AM ; [facility], [facility] Assessments Includes: Assessments from this encounter Findings - Overweight - Last Documented On 11/07/2024 8:50AM ; [facility] Moderate bilateral knee DJD - Last Documented On 11/07/2024 8:50AM ; [facility] Primarily patellofemoral - Last Documented On 11/07/2024 8:50AM ; [facility] Instructions Includes: Instructions from this encounter Instructions to patient Instructions for patient to see pcp for bp and wt Last Documented On 5 7:55AM ; [facility] Lose weight Last Documented On 5 7:55AM ; [facility], [facility] Medical Equipment - Implanted Devices Includes: Current Devices No Medical Equipment Recorded Medications Includes: Medications discussed during this encounter and other current Medications Discontinued / Stopped on this date on 07/09/2020 Sodium Bicarbonate 325 MG Oral Tablet Pro vider: Diagnosis: Last Documented On 5 8:24AM By Kaylynn Philippe ; [facility], [facility] Hydrocortisone 5 MG Oral Tablet Provider: Diagnosis: Last Documented On 8:24AM By Kaylynn Philippe ; [facility], [facility] lamoTRIgine 100 MG Oral Tablet Provider: Diagnosis: Last Documented On 8:23AM By Kaylynn Philippe ; [facility], [facility] Levothyroxine Sodium 88 MCG Oral Tablet P rovider: Diagnosis: Last Documented On 5 8:24AM By Kaylynn Philippe ; [facility], [facility] Decara 1.25 MG (80164 UT) Oral Capsule Pr ovider: Diagnosis: Last Documented On 5 8:23AM By Kaylynn Philippe ; [facility], [facility] Magnesium 250 MG Oral Tablet Provider : Diagnosis: Last Documented On 5 8:23AM By Kaylynn Philippe ; [facility], [facility] Martínez Colon Health Oral Capsule Provid er: Diagnosis: Last Documented On 8:23AM By Kaylynn Philippe ; [facility], [facility] Stool Softener 100 MG Oral Capsule Pr ovider: Diagnosis: Last Documented On 5 8:23AM By Kaylynn Philippe ; [facility] Symbicort 160-4.5 MCG/ACT Inhalation Aerosol Provider: Diagnosis: Last Documented On 5 8:24AM By Kaylynn Philippe ; [facility], [facility] Albuterol Sulfate (2.5 MG/3M L) 0.083% Inhalation Nebulization solution Provider: Diagnosis: Last Documented On 5 8:23AM By Kaylynn Philippe ; [facility], [facility] Azelastine HCl 0.1% Nasal Solution Provid er: Diagnosis: Last Documented On 5 8:25AM By Kaylynn Philippe ; [facility] Budesonide 0.25 MG/2ML Inhalation Suspension Provider: Diagnosis: Last Documented On 5 8:25AM By Kaylynn Philippe ; [facility], [facility] rOPINIRole HCl 0.5 MG Oral Tablet Provide r: Diagnosis: Last Documented On 5 8:23AM By Kaylynn Philippe ; [facility], [facility] Memantine HCl 10 MG Oral Tablet Provider: Esther Mathew PA-C Diagnosis: Last Documented On 5 8:24AM By Kaylynn Philippe ; [facility], [facility] Advanced Probiotic Oral Capsule Provider: Diagnosis: Last Documented On 5 8:24AM By Kaylynn Philippe ; [facility] SEROquel 300 MG Oral Tablet Provider: Diagnosis: Last Documented On 5 8:25AM By Kaylynn Philippe ; [facility], [facility] Vitamin C 1000 MG Oral Tablet Provide r: Diagnosis: Last Documented On 5 8:24AM By Kaylynn Philippe ; [facility], [facility] raNITIdine HCl 150 MG Oral Capsule Provid er: Diagnosis: Last Documented On 5 8:25AM By Kaylynn Philippe ; [facility], [facility] Daily Multivitamin Oral Capsule Provider: Diagnosis: Last Documented On 5 8:24AM By Kaylynn Philippe ; [facility], [facility] Melatonin 10 MG Oral Capsule Provider : Diagnosis: Last Documented On 5 8:24AM By Kaylynn Philippe ; [facility], [facility] Montelukast Sodium 10 MG Oral Tablet Prov ider: Diagnosis: Last Documented On 5 8:25AM By Kaylynn Philippe ; [facility], [facility] Albuterol Sulfate (2.5 MG/3M L) 0.083% Inhalation Nebulization solution Provider: Diagnosis: Last Documented On 5 8:24AM By Kaylynn Philippe ; [facility], [facility] Alendronate Sodium 70 MG Oral Tablet Prov ider: Diagnosis: Last Documented On 5 8:24AM By Kaylynn Philippe ; [facility], [facility] Alrex 0.2% Ophthalmic Suspension Provider : Diagnosis: Last Documented On 5 8:24AM By Kaylynn Philippe ; [facility], [facility] amLODIPine Besylate 5 MG Oral Tablet Prov ider: Diagnosis: Last Documented On 5 8:24AM By Kaylynn Philippe ; [facility], [facility] Biotin 14307 MCG Oral Tablet Provider: Diagnosis: Last Documented On 5 8:24AM By Kaylynn Philippe ; [facility], [facility] Budesonide 0.25 MG/2ML Inhalation Suspension Provider: Diagnosis: Last Documented On 5 8:24AM By Kaylynn Philippe ; [facility], [facility] Crestor 20 MG Oral Tablet Provider: Diagnosis: Last Documented On 5 8:25AM By Kaylynn Philippe ; [facility], [facility] Cymbalta 30 MG Oral Capsule Delayed Release Particles Provider: Diagnosis: Last Documented On 5 8:24AM By Kaylynn Philippe ; [facility], [facility] Cymbalta 60 MG Oral Capsule Delayed Release Particles Provider: Diagnosis: Last Documented On 5 8:25AM By Kaylynn Philippe ; [facility], [facility] Donepezil HCl 10 MG Oral Tablet Provider: Diagnosis: Last Documented On 5 8:24AM By Kaylynn Philippe ; [facility], [facility] Flax Seed Oil 1000 MG Oral Capsule Provid er: Diagnosis: Last Documented On 5 8:25AM By Kaylynn Philippe ; [facility], [facility] Fluticasone Furoate 100 MCG/ ACT Inhalation Aerosol Powder Breath Activated Provider: Diagnosis: Last Documented On 8:25AM By Kaylynn Philippe ; [facility], [facility] Hydrocortisone 5 MG Oral Tablet Provider: Diagnosis: Last Documented On 5 8:25AM By Kaylynn Philippe ; [facility], [facility] EQ Hydrocortisone 1% External Cream Provi brittanie: Diagnosis: Last Documented On 5 8:25AM By Kaylynn Philippe ; [facility], [facility] lamoTRIgine 100 MG Oral Tablet Provider: Diagnosis: Last Documented On 5 8:25AM By Kaylynn Philippe ; [facility], [facility] Lunesta 3 MG Oral Tablet Provider: Diagnosis: Last Documented On 8:25AM By Kaylynn Philippe ; [facility], [facility] EQL Lutein 20 MG Oral Capsule Provider: Diagnosis: Last Documented On 8:25AM By Kaylynn Philippe ; [facility], [facility] Vitamin D3 54568 UNIT Oral Capsule Pr ovider: Diagnosis: Last Documented On 8:24AM By Kaylynn Philippe ; [facility], [facility] Current Medications (continue as prescribed) QUEtiapine Fumarate 300 MG Oral Tablet 11/04/2024 Pr ovider: Diagnosis: Last Documented On 5 8:26AM By Kaylynn Philippe ; [facility], [facility] amLODIPine Besylate 5 MG Oral Tablet 11/04/2024 Prov ider: LEOPOLDO TEJADA MD Diagnosis: Last Documented On 8:26AM By Kaylynn Philippe ; [facility], [facility] Rosuvastatin Calcium 20 MG Oral Tablet 11/01/2024 Pr ovider: THOMPSON GOSS MD Diagnosis: Last Documented On 8:26AM By Kaylynn Philippe ; [facility], [facility] DULoxetine HCl 60 MG Oral Capsule Delayed Releas e Particles 10/28/2024 Provider: Diagnosis: Last Documented On 5 8:26AM By Kaylynn Philippe ; [facility], [facility] Donepezil HCl 23 MG Oral Tablet 10/25/2024 Provider: Esther E Priyanka PA-C Diagnosis: Last Documented On 5 8:26AM By Kaylynnchavo Philippe ; [facility], [facility] Trulance 3 MG Oral Tablet 10/23/2024 Provider: YAKOV DIXON MD Diagnosis: Last Documented On 5 8:26AM By Kaylynnchavo Philippe ; [facility] Memantine HCl 10 MG Oral Tablet 10/22/2024 Provider: Esther Mathew PA-C Diagnosis: Last Documented On 5 8:26AM By Kaylynnchavo Philippe ; [facility] lamoTRIgine 100 MG Oral Tablet 10/22/2024 Provider: Esther Mathew PA-C Diagnosis: Last Documented On 5 8:26AM By Kaylnyn Philippe ; [facility], [facility] Montelukast Sodium 10 MG Oral Tablet 10/18/2024 Prov ider: Diagnosis: Last Documented On 5 8:26AM By Kaylynn Philippe ; [facility], [facility] Nitrofurantoin Monohyd Macro 100 MG Oral Capsule 10/17/2024 Provider: Maggi zimmer APRN Diagnosis: Last Documented On 5 8:26AM By Kaylynnchavo Philippe ; [facility], [facility] Levothyroxine Sodium 88 MCG Oral Tablet 10/14/2024 P elena: LEOPOLDO TEJADA MD Diagnosis: Last Documented On 5 8:26AM By Kaylynnchavo Philippe ; [facility], [facility] Dantrolene Sodium 50 MG Oral Capsule 10/13/2024 Prov ider: Szuan Sanchez MD Diagnosis: Last Documented On 5 8:26AM By Kaylynn Philippe ; [facility], [facility] Emgality 120 MG/ML Subcutane ous Solution Auto-injector 10/10/2024 Provider: Esther Mathew PA-C Diagnosis: Last Documented On 5 8:26AM By Kaylynn Philippe ; [facility], [facility] Pantoprazole Sodium 40 MG Or al Tablet Delayed Release 10/07/2024 Provider: LEOPOLDO TEJADA MD Diagnosis: Last Documented On 5 8:26AM By Kaylynn Philippe ; [facility] busPIRone HCl 5 MG Oral Tablet 10/04/2024 Provider: Suzan Sanchez MD Diagnosis: Last Documented On 5 8:26AM By Kaylynn Philippe ; [facility] Linzess 72 MCG Oral Capsule 10/03/2024 Provider: Maggi Crawford APRN Diagnosis: Last Documented On 5 8:26AM By Kaylynn Philippe ; [facility] Hydrocortisone 5 MG Oral Tablet 09/29/2024 Provider: LEOPOLDO TEJADA MD Diagnosis: Last Documented On 5 8:26AM By Kaylynn hPilippe ; [facility] Cefdinir 300 MG Oral Capsule 09/29/2024 Provider: Diagnosis: Last Documented On 5 8:26AM By Kaylynn Philippe ; [facility] Past Medications on file Zofran 4 MG Oral Tablet 07/20/2019 - 07/25/2019 Provid er: Patrick Newton MD Diagnosis: [id number] DO NOT FILL TILL 07/22/19 FOR SURGERY Last Documented On 9 12:44PM By Pat Oneil ; [facility] Colace 100 MG Oral Capsule 07/20/2019 - 10/18/2019 Provider: Patrick marsh MD Diagnosis: 1-2 tabs daily DO NOT FILL TILL 07/22/19 FOR SURGERY Last Documented On 9 12:44PM By Pat Oneil ; [facility] Neurontin 300 MG Oral Capsule 07/20/2019 - 10/18/2019 Provider: Patrick marsh MD Diagnosis: 1 every bedtime DO NOT ZEENAT L TILL 07/22/19 FOR SURGERY Last Documented On 9 12:34PM By Pat Oneil ; [facility] Dilaudid 2 MG Oral [...] On 9 12:34PM By Pat Oneil ; [facility] Mupirocin 2% External Ointment [...] On 8 4:16PM By Yelena Call ; [facility] Cyclobenzaprine HCl 5MG Oral Tablet 07/31/2017 - 09/29/2017 Provider: Amy gonzalez MD Diagnosis: Take 1 tablet every 8 hrs// Last Documented On 7 11:22AM By Sonia Lima ; [facility] [place] 5-325MG Oral Tablet 06/17/2017 - 07/17/2017 Prov ider: Ramone Staples MD Diagnosis: 1-2 every 4-6 hours as needed Last Documented On 7 9:20AM By Shelly Sood ; [facility], [facility] Voltaren 1 % Gel 03/25/2017 - 04/24/2017 Provider: Amy Jimenez MD Diagnosis: four times a day Last Documented On 7 10:06AM By Viktoria Chopra ; [facility] Flector 1.3 % Patch 03/25/2017 - 04/24/2017 Provider: Amy Jimenez MD Diagnosis: once a day Last Documented On 7 10:06AM By Viktoria Chopra ; [facility], [facility] [place] 10-325 MG Tablet 03/25/2017 - 04/24/2017 Provide r: Amy Jimenez MD Diagnosis: 1-2 po q 4-6h prn Last Documented On 7 9:59AM By Viktoria Chopra ; [facility] CeleXA 20 MG Tablet 02/25/2017 - 03/27/2017 Provider: Amy Jimenez MD Diagnosis: once a day Last Documented On 7 10:27AM By Haven Mancuso ; [facility], [facility] Flector 1.3 % Patch 02/25/2017 - 04/26/2017 Provider: Amy Jimenez MD Diagnosis: apply patch to affected area BID or as needed Last Documented On 7 9:57AM By Viktoria Chopra ; [facility], [facility] [place] 10-325 MG Tablet 02/25/2017 - 03/07/2017 Provide r: Amy Jimenez MD Diagnosis: 1-2 po q 4-6h prn Last Documented On 7 9:53AM By Viktoria Chopra ; [facility] [place] 10-325 MG Tablet 01/09/2017 - 01/19/2017 Provide r: Amy Jimenez MD Diagnosis: 1-2 po q 4-6h prn/jkp Last Documented On 7 1:10PM By Haven Mancuso ; [facility], [facility] Medications Administered Includes: Administered Medications from this encounter No Administered Medications Recorded Vital Signs Includes: Vital Signs from this encounter Vital Name 11/07/2024 07:56A Height (in) 67 Weight (lb) 200 Body Mass Index 31.3 Body Surface Area 2 Note: ab Last Documented: On 11/07/2024 7:56AM ; [facility] Results Includes: Results discussed during this encounter No Results Recorded For Specified Dates History of Present Illness Includes: History of Present Illness from this encounter HPI Sandie Frank is a 69 year old female. - Allergy list reviewed - Problem list reviewed - Medication list reviewed - - Review of medications documented Social History Description Last Updated No recent change in diet 08/19/2022 Last Documented On 5 7:55AM ; [facility] Not a current smoker. 08/19/2022 Last Documented On 5 7:55AM ; [facility] Non-smoker 07/09/2020 Last Documented On 5 7:55AM ; [facility] Not a current smoker. 07/09/2020 Last Documented On 5 7:55AM ; [facility] No tobacco use 04/23/2015 Last Documented On 5 7:55AM ; [facility] Smoking status : Never smoker 04/23/2015 Last Documented On 5 7:55AM ; [facility] Caffeine use 03/23/2015 Last Documented On 5 7:55AM ; [facility] No recent change in diet 03/23/2015 Last Documented On 5 7:55AM ; [facility] Not a current smoker 03/23/2015 Last Documented On 5 7:55AM ; [facility] Not exercising regularly 03/23/2015 Last Documented On 5 7:55AM ; [facility] Not using alcohol 03/23/2015 Last Documented On 5 7:55AM ; [facility] Not using drugs 03/23/2015 Last Documented On 5 7:55AM ; [facility] Sex - Female 01/11/2025 Last Documented On 5 12:16PM ; [facility] Procedures and Surgical History Includes: Procedures from this encounter Procedures Code Diagnosis Performing Provider Service Location Service Date DRAIN/INJECT, JOINT/BURSA (RIGHT) Unilateral primary osteoarthritis, right knee Missael Avalos PA-C [facility] 11/07/2024 Last Documented On 5 7:26AM ; [facility] Triamcinolone/Kenalog, 10mg per cc [id number] Unilateral primary osteoarthritis, right knee Missael Avalos PA-C [facility] 11/07/2024 Last Documented On 5 7:26AM ; [facility] X-RAY EXAM KNEE 4 OR MORE (Bilateral Procedure) 47482 Bilateral primary osteoarthritis of knee Missael Avalos PA-C [facility] 11/07/2024 Last Documented On 5 7:26AM ; [facility] use of tobacco assessment performed 1000F Last Documented On 5 7:55AM ; [facility] Pt received screening for fall risk [id number] Last Documented On 5 7:55AM ; [facility] Surgical History Last Updated History of total hip replacement 023 Last Documented On 5 7:55AM ; [facility] History of appendectomy 03/23/2015 Last Documented On 5 7:55AM ; [facility] History of hysterectomy 03/23/2015 Last Documented On 5 7:55AM ; [facility] Medical History Includes: Medical History addressed during this encounter Description Last Updated History of Anemia 08/19/2022 Last Documented On 5 7:55AM ; [facility] History of arthritis 08/19/2022 Last Documented On 5 7:55AM ; [facility] History of Fractures 08/19/2022 Last Documented On 5 7:55AM ; [facility] History of Heartburn / Acid Reflux 08/19 Last Documented On 5 7:55AM ; [facility] History of Thyroid Disease 08/19/2022 Last Documented On 5 7:55AM ; [facility] Anemia 07/09/2020 Last Documented On 5 7:55AM ; [facility] Arthritis 07/09/2020 Last Documented On 5 7:55AM ; [facility] Heartburn / Acid Reflux 07/09/2020 Last Documented On 5 7:55AM ; [facility], [facility] History of Blood Transfusion 07/09/2020 Last Documented On 5 7:55AM ; [facility], [facility] History of Rheumatology 07/09/2020 Last Documented On 5 7:55AM ; [facility] Hypertension 07/09/2020 Last Documented On 5 7:55AM ; [facility] Thyroid Disease 07/09/2020 Last Documented On 5 7:55AM ; [facility], [facility] A recent immunization for flu 07/09/2020 Last Documented On 5 7:55AM ; [facility], [facility] colon, 2 foot surgeries, tim n pump placement,cateracts, kidney stones, colectomy, heartburn/acid reflux 06/08/2019 Last Documented On 5 7:55AM ; [facility], [facility] A previous fracture 06/08/2019 Last Documented On 5 7:55AM ; [facility], [facility] History of asthma 06/08/2019 Last Documented On 5 7:55AM ; [facility], [facility] History of osteoporosis 06/08/2019 Last Documented On 5 7:55AM ; [facility], [facility] Rheumatology history 06/08/2019 Last Documented On 5 7:55AM ; [facility], [facility] Thyroid disease 06/08/2019 Last Documented On 5 7:55AM ; [facility], [facility] A recent immunization for pneumococcal p neumonia 10/05/2014 03/23/2015 Last Documented On 5 7:55AM ; [facility], [facility] Arthritic joint problems 03/23/2015 Last Documented On 5 7:55AM ; [facility], [facility] Gallbladder disease 03/23/2015 Last Documented On 5 7:55AM ; [facility], [facility] History of depression 03/23/2015 Last Documented On 5 7:55AM ; [facility], [facility] Family History Includes: Family History addressed during this encounter Description Last Updated Stroke / Seizures 08/19/2022 Last Documented On 5 7:55AM ; [facility] Diabetes mellitus 07/09/2020 Last Documented On 5 7:55AM ; [facility], [facility] Family history of osteoporosis 0 Last Documented On 5 7:55AM ; [facility], [facility] Family history of rheumatoid arthritis 1 09/09/2019 Last Documented On 5 7:55AM ; [facility], [facility] Family history [use for free text] 01/09 Last Documented On 5 7:55AM ; [facility], [facility] Family history of cancer 01/09/2017 Last Documented On 5 7:55AM ; [facility], [facility] Family history of diabetes mellitus 04/2017 Last Documented On 5 7:55AM ; [facility] Family history of heart disease 01/10/20 17 Last Documented On 5 7:55AM ; [facility] Review of Systems Includes: Review of [...] encounter Description Anxiety Last Documented On 5 7:55AM ; [facility] Physical Exam Includes: Physical Exam from this encounter Allergies Includes: Active Allergies Substance Type Reaction Onset Date Resolved Date Statu s OTHER Allergy meropenem 06/08/2019 Active Last Documented On 5 8:55AM ; [facility] Lyrica Allergy 03/23/2015 Active Last Documented On 5 8:55AM ; [facility] Keflex Allergy 03/23/2015 Active Last Documented On 5 8:55AM ; [facility], [facility] Erythromycin Allergy 03/23/2015 Active Last Documented On 5 8:55AM ; [facility] Codeine Sulfate Allergy 03/23/2015 Act ru Last Documented On 5 8:55AM ; [facility] Clindamycin HCl Allergy 06/08/2019 Act ru Last Documented On 5 8:55AM ; [facility] Cleocin Allergy 03/23/2015 Active Last Documented On 5 8:55AM ; [facility] Cephalexin Allergy 06/08/2019 Active Last Documented On 5 8:55AM ; [facility] Care Customer Service Supervisor Name (Identifier) Role/Relation Location/Telecom Last Documented By LEOPOLDO TEJADA MD ([id number]) [address], [place], [place], [place], [address] tel:[phone] Last Documented On 01/09/2017 12:46PM ; [facility] EFFIE LORENZANA MD ([id number]) Primary care physician (occupation) [address] , [place], [place], [place], [address] tel: Last Documented On 01/11/2025 12:16PM ; [facility] Brian Downs MD ([id number]) Assigned practitioner (occupation) [address], [place], [place], [address] tel: Last Documented On 01/11/2025 12:16PM ; [facility] Encounters Encounter Provider Location (Healthcare Service Location) Date Check-In Time Check-Out Time Diagnosis Encounter Disposition NEW PROBLEM/EST PT Missael Avalos PA-C [facility] 2024 7:53AM 8:45AM Overweight Payer Includes: Active Insurance Policies Plan Name (Payer ID) Coverage Type Member ID Group # Subscriber (ID) Relationship Effective Dates 1 - Medicare Part B [facility] ([id number]) [id number] Sandie Frank Self 4 - Unknown Last Documented On 9 1:05PM ; [facility] 2 - [facility] ([id number]) [id number] Sandie Frank Self 08/03/19 19 - Unknown Last Documented On 9 1:06PM ; [facility] Clinical Notes Includes: Clinical Notes from this encounter * Progress note Date Encounter Last Documented by 11/07/2024 NEW PROBLEM/EST PT Last document ed on 11/07/2024; 8:50 AM, Missael Avalos PA-C; [facility] Active Problems & Conditions - Carpal [...] underwent a relatively large spinal fusion at [facility] this past summer. This is 2nd or [...] Care Team - LEOPOLDO TEJADA MD - SALES TEAM MEMBER
--- OUTSIDE RECORDS SUMMARY | 2025-07-20 11:24 | XMS_ITS | Clinical Summary ---
Author Organization [facility] Address [address] [place] [address] Care Team Providers Care Pictures Editor Name Role Phone Marc Rodriguez MD Primary Care Provider [phone] Allergies Active Allergy Reactions Criticality Noted Date Comments Cephalexin Other (See Comments) Low 10/29/2015 Mouth swelling Clindamycin Swelling Low 10/29/2015 Throat swelling Codeine Other (See Comments) Low 11/27/2016 Has a pain pump Erythromycin Other (See Comments) Low 10/29/2015 Mouth breaks out Gabapentin Hallucinations Low 05/27/2024 Pt states can only take once a day if she takes more than that makes her unstable Levofloxacin Rash Low 04/15/2018 Rash and blisters in mouth Pregabalin Mental Status Change Low 10/29/2015 Meropenem [...] by mouth 2 (Two) Times a Day. 08/22/20 18 Active DULoxetine (CYMBALTA) 60 MG capsule Take 1 capsule by mouth 2 (Two) Times a Day. 03/24/20 18 Active memantine (NAMENDA) 10 MG tablet Take 1 tablet by mouth 2 (Two) Times a Day. 11 01/27/20 Active sodium bicarbonate 650 MG tablet Take 1 tablet by mouth 2 (Two) Times a Day. 6 01/27/20 Active donepezil (ARICEPT) 23 MG tablet Take 1 tablet by mouth Daily. 05/02/20 Active levothyroxine (SYNTHROID, LEVOTHROID) 88 MCG tablet [...] Narcan 4 mg/actuation nasal spray 10/29/19 Active nystatin (MYCOSTATIN) 100,000 unit/mL suspension Take 5 mL by mouth 4 (Four) Times a Day. 280 mL 04/16/20 Active acetaminophen (TYLENOL) 500 MG tablet Take 2 tablets by mouth Every 6 (Six) Hours As Needed. Active denosumab (PROLIA) 60 MG/ML solution prefilled syringe syringe Inject 1 mL under the skin into the appropriate area as directed. Active aspirin 81 MG chewable tablet Chew [...] (Two) Times a Day. 03/09/20 25 Active rosuvastatin (CRESTOR) 20 MG tablet Take 1 tablet by mouth once daily 90 tablet 1 05/04/20 25 Active furosemide (LASIX) 40 MG tablet Take 1 tablet by mouth Daily. 06/10/20 25 Active potassium chloride ER (K-TAB) 20 MEQ tablet controlled-rele ase ER tablet Take 1 tablet by mouth Daily. 06/10/20 25 Active HYDROmorphone HCl (DILAUDID PO) Take by mouth. Activ e doxycycline (PERIOSTAT) 20 MG tablet Take 1 tablet by mouth 2 (Two) Times a Day. Active budesonide-form oterol (SYMBICORT) 80-4.5 MCG/ACT inhalerIndicati ons:Severe persistent asthma without complication Inhale 2 puffs 2 (Two) Times a Day. 1 each 5 06/26/20 25 Active montelukast (SINGULAIR) 10 MG tabletIndicatio ns:Chronic allergic rhinitis Take 1 tablet by mouth every night at bedtime. 90 tablet 3 06/26/20 25 Active albuterol sulfate HFA 108 (90 Base) MCG/ACT inhalerIndicati ons:Severe persistent asthma without complication Inhale 2 puffs Every 4 (Four) Hours As Needed for Wheezing. 18 g 5 06/26/20 25 Active fluticasone (Flonase) 50 MCG/ACT nasal sprayIndication s:Chronic allergic rhinitis,Enviro nmental and seasonal allergies,Sever e persistent asthma without complication 2 sprays by Each Nare route Daily. 16 g 3 07/18/20 25 Active fluticasone (Flonase) 50 MCG/ACT nasal spray 2 sprays by Each Nare route Daily. 18 mL 11 02/25/20 22 2024 Discontinued(R eorder) montelukast (SINGULAIR) 10 MG tabletIndicatio ns:Chronic allergic rhinitis Take 1 tablet by mouth every night at bedtime. 30 tablet 5 01/26/20 24 2024 Discontinued(R eorder) Breo Ellipta 100-25 MCG/ACT aerosol powderIndicatio ns:Severe persistent asthma without complication Inhale 1 puff by mouth once daily 60 each 3 04/24/20 25 2024 Discontinued Active Problems Problem Noted Date Diagnosed Date Chest pressure 06/19/2025 Assessment & Plan (06/19/2025 12:43 PM EST): Will do Radha scan to evaluate. Dyspnea on exertion 06/19/2025 Assessment & Plan (06/19/2025 12:43 PM EST): Will do echocardiogram. Primary hypertension 03/12/2025 Assessment & Plan (06/19/2025 12:43 PM EST): Hypertension is stable and controlled. Family MD started Norvasc 5 mg daily. Patient brought BP log and its average 130 systolic. Continue current treatment regimen. Dietary sodium restriction. Weight loss. Ambulatory blood pressure monitoring. Blood pressure will be reassessed in 6 months. Discussed with patient [employer] and [employer] provide detailed guidelines for accurate [...] blood pressure should be less than 130/80. Assessment & Plan (03/13/2025 9:56 AM EDT): Hypertension is stable and controlled. Family MD started Norvasc 5 mg daily. Patient brought BP log and its average 130 systolic. Continue current treatment regimen. Dietary sodium restriction. Weight loss. Ambulatory blood pressure monitoring. Blood pressure will be reassessed in 6 months. Discussed with patient [employer] and [employer] provide detailed guidelines for accurate [...] LDL goal <100 03/12/2025 Assessment & Plan (06/19/2025 12:43 PM EST): Lipid abnormalities are stable Plan: Continue same [...] once a day. Goals discussed in detail. Assessment & Plan (03/13/2025 9:56 AM EDT): [...] of lower extremity 03/12/2025 Assessment & Plan (06/19/2025 12:43 PM EST): Continue wearing compression socks 20 to 30 [...] swelling and edema in the lower extremities. Caution against diuretics based on leg swelling. Assessment & Plan (03/13/2025 9:56 AM EDT): [...] (08/27/2021): Added automatically from request for surgery [id number] Lumbosacral radiculopathy at L5 04/22/2021 Overview (08/27/2021): Added automatically from request for surgery [id number] Chronic bilateral low back pain with bilateral s ciatica 04/22/2021 Overview (08/27/2021): Added automatically from request for surgery [id number] Spinal stenosis, lumbar clara on without neurogenic claudication 04/22/2021 Overview (08/27/2021): Added automatically from request for surgery [id number] Environmental and seasonal allergies 11/12/2020 Restless legs syndrome 11/12/2020 Adrenal insufficiency 02/22/2019 Overview (02/22/2019): chronic steroids - Cortef Rheumatoid arthritis 08/31/2018 Fibromyalgia 08/31/2018 Chronic cough 12/24/2017 Severe persistent asthma without complication Chronic allergic rhinitis 12/24/2017 Gastroesophageal reflux disease 12/24/2017 Encounters Date Type Department Care Team Description 07/18/2025 Refill [facility] PUL[facility]ARY & [facility]ICAL CARE MEDICINE [address] [facility] [place] [address] Kaitlin Joiner APRN Chronic allergic rhinitis (Primary Dx); Environmental and seasonal allergies; Severe persistent asthma without complication 06/26/2025 10:00 AM EST Office Visit [facility] PUL[facility] & [facility]ICAL [facility]ARE MEDICINE [address] [facility] [place] [address] Kaitlin Joiner APRN Severe persistent asthma without complication (Primary Dx); Chronic cough; Chronic allergic rhinitis 06/26/2025 Travel 06/19/2025 11:45 AM EST Office Visit [facility] CARDIOLOGY [address] [facility] [address] [place] [address] Jimmy Duncan MD Chest pressure (Primary Dx); Dyspnea on exertion; Primary hypertension; Hyperlipidemia LDL goal <100; Chronic venous insufficiency of lower extremity; Lymphedema 06/19/2025 Travel 06/09/2025 Telephone [facility] C[facility] [address] [facility] [address] [place] [address] QAZI- SWELLING IN LEG/FEET 05/04/2025 Refill [facility] C[facility] [address] [facility] [address] [place] [address] Jimmy Duncan MD Med Refill 04/22/2025 Refill [facility] PULMONARY & CRITICAL CARE MEDICINE [address] [facility] [place] [address] Kaitlin Joiner APRN Severe persistent asthma without complication from Last 3 Months Immunizations Immunization Administration Dates Next Due Arexvy (RSV, Adults 60+ yrs) 08/13/2023 COVID-19 (MODERNA) 1st,2nd,3 rd Dose Monovalent 12/19/2021,06/19/2021,10/14/2020,09/16 COVID-19 (MODERNA) Monovalen t Original Booster 04/30/2022,07/15/2021 Flu Vaccine Split Quad 05/24/2015 Fluzone >6mos 05/17/2015 Fluzone High-Dose 65+YRS 06/16/2025,07/03,05/01/2023,03/30,05/27/2019 Fluzone High-Dose 65+yrs 06/07/2022,05/04,03/30/2020,05/27 Fluzone Quad >6mos (Multi-dose) 06/07/2018,05/06,05/24/2015 Hepatitis A 02/17/2019,07/19/2018 Influenza, Unspecified 05/05/2022,06/03/2018 Pneumococcal Conjugate 13-Va lent (PCV13) 03/25/2019 Pneumococcal Polysaccharide (PPSV23) 03/11/2022 Pneumococcal, Unspecified 03/10/2016 Shingrix 05/29/2023,01/21/2023 Td (TDVAX) 10/07/1996 Tdap 12/09/2022,09/19/2015 Family History Medical History Relation Name Comments Alcohol abuse Father Clif Haney Emphysema Father Clif Haney Hypertension Maternal Grandfather LUIS MANUEL Thompson Cancer Mother Suma Haeny bone Coronary artery disease Mother Suma Haney Diabetes Mother Suma Haney Diabetes type II Mother Suma Haney 60s Heart attack Mother Suma Haney 70s, x2 at a ge 88 Heart disease Mother Suma Haney Hypertension Mother Suma Haney Stroke Mother Suma Haney Arthritis Other 1 Grandparent Hyperlipidemia Other 2 Cancer Sister 1 Keiko Equinunk Diabetes Sister 1 Keiko Ismael Diabetes type II Sister 1 Keiko Ismael 50s Hypertension Sister 1 Keiko Ismael Anemia Sister 2 Terri Bowling Relation Name Status Comments Brother Alive Father Clif Haney Maternal Grandfather LUIS MANEUL Thompson Alive Maternal Grandmother Mother Suma Haney Other 1 Grandparent Other 2 Paternal Grandfather Paternal Grandmother Sister 1 Keiko Guevara Sister 2 Terri Bowling Alive Social History Tobacco Use Types Packs/Day Years [...] F) 06/26/2025 9:19 AM EST Respiratory Rate 19 06/09/2024 10:3 3 AM EST Oxygen Saturation 96% 06/26/2025 9:1 9 AM EST Room air at rest Inhaled Oxygen Concentration - - Weight 77.1 kg (170 lb) 06/26/2025 9:19 AM EST Height 170.2 cm (5' 7 ) 06/26/2025 9:19 AM EST Body Mass Index 26.63 06/26/2025 9:19 AM EST Plan of Treatment Upcoming Encounters Date Type Department Care Team (Late st Contact Info) Description 07/25/2025 9:00 AM EST Appointment [facility] NONINVASIVE LAB [address] [address] 07/25/2025 12:15 PM EST Appointment [facility] CARDIOVASCULAR LAB [address] [address] 07/25/2025 1:45 PM EST Appointment [facility] CARDIOVASCULAR LAB [address] [address] 01/11/2026 9:30 AM EDT Office Visit [facility] PULMONARY & CRITICAL CARE MEDICINE [address] [place] [address] Kaitlin Joiner, [employer] EM[employer]OYEE [address] [place] [address] Health Maintenance Due Date Last Done Comments ANNUAL WELLNESS VISIT 12/08/2020 12/09/2019 , 11/26/2018, 12/12/2015 DXA SCAN 02/07/2021 02/07/2019, 04/07/2017 MAMMOGRAM 04/29/2021 04/29/2019, 09/04, 09/26/2015 LIPID PANEL 03/25/2025 03/25/2024, 03/04, 05/10/2019, Additional history exists COVID-19 Vaccine (2024-09 6 season) 2025 07/15/2023, 04/30/2022, 12/19/2021, Additional history exists TDAP/TD VACCINES (3 - Td or Tdap) 12/09/2032 12/09/2022, 09/19/2015, 10/07/1996 COLON CANCER SCREENING 5 YEA R SIGMOIDOSCOPY Discontinued 04/16/2016 COLONOSCOPY Discontinued 06/02/2018 COLORECTAL CANCER SCREENING Discontinued Pneumococcal Vaccine 50+ Completed 022, 03/25/2019, 05/17/2018, Additional history exists ZOSTER VACCINE Completed 05/29/2023, 01/21/2023 HEPATITIS C SCREENING Completed 04/25/2024 INFLUENZA VACCINE Completed 06/16/2025, , 05/01/2023, Additional history exists COLOGUARD Discontinued CT COLONOGRAPHY Discontinued FECAL OCCULT BLOOD TEST Discontinued FIT Testing (1 year) Discontinued Procedures Procedure Name Priority Date/Time Associated Diagnosis Comments BREATHING CAPACITY TEST Routine 06/26/2025 3:35 PM EST Severe persistent asthma without complication SCANNED - LABS 06/15/2025 from Last 3 Months Results * Breathing Capacity Test (06/26/2025 3:35 PM EST) us Kaitlin Joiner APRN PFT ORDERABLES Final Result * LABS SCANNED (06/15/2025) us Jimmy Duncan MD LAB BLOOD ORDERABLES Final Resu lt from Last 3 Months Insurance MEDICARE A & B Member Subscriber Plan / Payer (Ef fective 2014-Present) Name:Sandie Frank Member ID:[id number] Relation to Subscriber:Self Name:Sandie Frank Subscriber ID:[id number] Payer ID:[id number] Group ID:Not on file Type:Not on file Address: [facility] [id number] [address] Care Teams Pictures Editor Relationship Specialty Start Date End Date Marc Rodriguez MD [address] [facility] [address] [place] [address] PCP - General Adolescent Medicine 12/08/16
--- OUTSIDE RECORDS SUMMARY | 2025-07-20 11:24 | XMS_ITS | Clinical Summary ---
Author Organization Healthcare Address [address] [place] [address] Care Team Providers Care Slot Tag Inserter Name Role Phone Marc Rodriguez MD Primary Care Provider [phone] Edgardo Zuñiga MD Unavailable [phone] Giulia Briggs Unavailable [phone] Edgardo Zuñiga MD Unavailable [phone] Esther Mathew Unavailable [phone] Allergies Active Allergy Reactions Criticality Noted Date [...] Repeat in other nostril if symptoms continue Active ondansetron (Zofran) 4 MG tablet Take 1 tablet (4 mg) by mouth every 8 hours as needed for nausea. Active lamoTRIgine (LaMICtal) 100 MG tablet Take 1 tablet (100 mg) by mouth 2 (two) times a day. 180 tablet 3 025 2025 Active memantine (Namenda) 10 MG tablet Take 1 tablet (10 mg) by mouth 2 (two) times a day. 180 tablet 3 025 2025 Active Trulance 3 MG tablet Take 1 tablet by mouth daily. Active ubrogepant (Ubrelvy) 100 MG tablet TAKE 1 TABLET BY MOUTH ONE TIME NEEDED FOR MIGRAINE. AFTER 2 HOURS, A SECOND DOSE MAY BE TAKEN IF NEEDED. MAX 200MG IN 24 HOURS 10 each 3 Active baclofen (Lioresal) 10 MG tablet Take 1 tablet by mouth 2 times a day. 60 tablet 5 Active Additional Information Patient not taking.Reported on 06/12/2025 busPIRone (Buspar) 5 MG tabletIndicati ons:Total self-care deficit,Impair ed cognition Take 1 tablet by mouth 3 times a day. 90 tablet 3 Active dantrolene (Dantrium) 50 MG capsuleIndicat ions:Cervical cord compression with myelopathy (CMS/HCC) Take 2 capsules by mouth 4 times a day. 240 capsule 5 Active Additional Information Patient not taking.Reported on 05/25/2025 albuterol 108 (90 Base) MCG/ACT inhaler INHALE 2 PUFFS BY MOUTH EVERY 4 HOURS NEEDED FOR WHEEZING FOR SHORTNESS OF BREATH Active dantrolene (Dantrium) 50 MG capsule Take 1 capsule by mouth 4 times a day. 90 capsule 5 Active Dupixent 300 MG/2ML solution auto-injector Inject 2 mL under the skin every 14 days. Active gabapentin (Neurontin) 100 MG capsule Take 1 capsule by mouth daily. Active sodium bicarbonate 650 MG tablet Take 1 tablet by mouth daily. Active triamcinolone (Kenalog) 0.5 % ointment APPLY OINTMENT TOPICALLY TO AFFECTED AREA TWICE DAILY Active donepezil (Aricept) 23 MG tablet Take 1 tablet by mouth once daily 30 tablet 2 Active furosemide (Lasix) 40 MG tablet Take 1 tablet by mouth daily. Active potassium chloride CR (K-Tab) 20 MEQ ER tablet Take 1 tablet by mouth. Take with food. Active Xdemvy 0.25 % solution Active doxycycline (Periostat) 20 MG tablet Take 1 tablet by mouth 2 times a day. Active ascorbic acid (Vitamin C) 1000 MG tablet daily. Active Emgality 120 MG/ML injection INJECT 120MG (ONE PEN) SUBCUTANEOUSLY ONCE A MONTH 1 each Active galcanezumab-g nlm (Emgality) 120 MG/ML injection Inject 1 Syringe (120 mg) under the skin every 30 (thirty) days. 1 each 024 2024 Discontinued Active Problems Problem Noted Date [...] (07/02/2021): Added automatically from request for surgery [id number] Chronic bilateral low back pain with bilateral s ciatica 04/22/2021 Overview (04/22/2021): Added automatically from request for surgery [id number] Environmental and seasonal allergies 11/12/2020 Restless legs [...] 05/14/2025 Pain 05/12/2024 05/14/2025 Total self-care deficit 02/10/202204/04 Lumbar stenosis with neurogenic claudication 10/18/2021 Decreased activity tolerance 07/30/2021 04/23/2025 Lumbosacral radiculopathy at L5 04/22/2021 10/18/2021 Overview (04/22/2021): Added automatically from request for surgery [id number] Spinal stenosis, lumbar clara on without neurogenic claudication 04/22/2021 10/18/2021 Overview (04/22/2021): Added automatically from request for surgery [id number] Spondylolisthesis at L4-L5 level 04/22/2021 10/18/2021 Overview (04/22/2021): Added automatically from request for surgery [id number] S/P insertion of intrathecal pump 10/18/2018 04/23/2025 AVN (avascular necrosis of bone) 08/30/2018 07/30/2021 Rotator cuff arthropathy 08/30/2018 Decreased range of motion of shoulder 07/22/2018 07/30/2021 Humeral fracture 04/01/2018 07/30/2021 Biceps tendonitis 04/01/2018 07/30/2021 Rotator cuff dysfunction 04/01/2018 Purpura 06/19/2017 07/30/2021 Itching 06/02/2017 07/30/2021 Status migrainosus 08/08/2015 Encounters Date Type Department Care Team Description 07/06/2025 1:00 PM EST Procedure Visit [facility] [address] [place] [address] Marquez Brandon MD Sensory neuropathy; Meralgia paresthetica of right side 07/06/2025 Travel 07/06/2025 Refill [facility] [address], [address] [place] [address] Esther Mathew PA 07/05/2025 Travel 06/12/2025 1:00 PM EST Office Visit [facility] [address], [address] [place] [address] Mook Martinez MD Sensory neuropathy (Primary Dx); Meralgia paresthetica of right side 06/12/2025 Travel 06/09/2025 Refill [facility] [address], [address] [place] [address] Esther Mathew PA 06/07/2025 Travel 06/03/2025 Travel 05/25/2025 2:10 PM EDT Office Visit [facility] [address], [address] [place] [address] Esther Mathew, PA Weakness (Primary Dx) 05/25/2025 Travel 05/18/2025 Travel 05/13/2025 Refill [facility] [address], [address] [place] [address] Esther Mathew, PA 05/10/2025 Results Follow-Up [facility] at [facility] [address] [place] [address] Preeti Delacruz 05/09/2025 Telephone [facility] at [facility] [address] [place] [address] Suzan Galindo DO HCN - Patient Message 05/09/2025 Travel 05/08/2025 Orders Only [facility] at [facility] [address] [place] [address] Suzan Galindo DO High risk medication use (Primary Dx) 05/08/2025 Telephone [facility] at [facility] [address] [place] [address] Suzan Galindo DO HCN Clinical [...] EST Appointment [facility] S Radiology [address], 1st [place] [address] 09/11/2025 11:50 AM EST Office Visit [facility] [address] [place] [address] Suzan Galindo, [address] [place] [address] 03/07/2026 9:20 AM EDT [facility] [address] [place] [address] Edgardo Zuñiga MD [address] [place] [address] Health Maintenance Due Date Last Done Comments [facility]-Bone Density Scan 1955 [facility]-Medicare Annual Wellness (AWV) 1955 [facility]-Infant/Child/Adol SDOH Screenings 1955 [facility]- SDOH Screenings 11/01/1971 [facility]-Adult SDOH Screenings 11/01/1971 CT Colonography 1998 Colonoscopy 1998 FIT-DNA 1998 FIT 1998 FOBT 1998 Sigmoidoscopy 1998 [facility]-Colorectal Cancer Screening 1998 [facility]-Breast Cancer Screening 11/01/2003 KPT-AJEBY-20 Vaccine ( season) 2025 07/15/2023, 04/30/2022, 12/19/2021, Additional history exists [facility]-Depression Screening 03/09/2026 025, [...] C Screening Completed 04/25/2024 [facility]-Influenza Vaccine Completed 06/16/2025 , 07/13/2024, 05/01/2023, Additional history exists [facility]-Obesity Intervention Completed 025, 06/12/2025, 05/25/2025, Additional history exists HPV Vaccines (No Doses Required) Completed [facility]-HIB Vaccines Aged Out No longer e ligible based on patient's age to complete this topic [facility]-IPV Vaccines Aged Out No longer e ligible based on patient's age to complete this topic [facility]-Rotavirus Vaccines Aged Out No lo nger eligible based on patient's age to complete this topic Medical Devices Implanted Type Area Service Learning Coordinator Device Identifier Shelf Expiration Date Model / Serial / Lot Cif Ui H 8mm 8deg S - [id number] Implanted:Qty: 1 on 07/31/2021 by Edgardo Zuñiga MD at [facility] Cage N/A: Spine Cervical DePuy Spine Sales LP-358704 01/31/2024 [id number] / / [id number] Synchromed Iii Implanted:Qty: 1 on 10/09/2023 Pain Pump Abdomen Medtronic 8667-20 / [id number] / One Level Plate, 12mm - S. - [id number] Implanted:Qty: 1 on 07/31/2021 by Edgardo Zuñiga MD at [facility] Plate N/A: Spine Cervical DePuy Spine [employer] LP-128128 07/31/2021 [id number] / . / Pre-Lordosed Joe W/ Line 40mm - [id number] Implanted:Qty: 2 on 10/16/2021 by Edgardo Zuñiga MD at [facility] Joe Spine Lumbar De[employer] Spine [employer] LP-638589 10/16/2022 [id number] / / Self Drilling Screw 16mm - S. - [id number] Implanted:Qty: 4 on 07/31/2021 by Edgardo Zuñiga MD at [facility] Screw N/A: Spine Cervical DePuy Spine [employer] LP-[id number] 07/31/2022 [id number] / . / Screw 5.5mm Viper Ti Fen Crtcl Polyax 8mm X 50mm - [id number] Implanted:Qty: 4 on 10/16/2021 by Edgardo Zuñiga MD at [facility] Screw Spine Lumbar De[employer] Spine [employer] LP-194828 10/16/2022 [id number] / / Wavewriter Alpha 16 Ipg H2HCare Scs Spinal Cord Stimulator Back ThisNext [place]-1216 / [id number] / Description:Linear ST Percut aneous LEADS (2): MODEL # [id number] Graft Vivigen 1cc - [id number] Implanted:Qty: 1 on 07/31/2021 by Edgardo Zuñiga MD at [facility]-[id number] 07/15/2022 BL-1500-001 / / [id number] Graft Vivigen 5cc - [id number] Implanted:Qty: 1 on 10/16/2021 by Edgardo Zuñiga MD at [facility] Spine Lumbar [facility]-[id number] 10/11/2022 BL-1500-002 / / [id number] Post Ibf Ui H 12mm 8deg 24/04 - [id number] Implanted:Qty: 1 on 10/16/2021 by Edgardo Zuñiga MD at [facility] Spine Lumbar De[employer] Spine [employer] LP-233861 02/01/2022 [id number] / / Post Ibf Ui H 12mm 8deg 24/04 - [id number] Implanted:Qty: 1 on 10/16/2021 by Edgardo Zuñiga MD at [facility] Spine Lumbar [employer] Spine [employer] LP-[id number] 05/02/2025 [id number] / / Single Inner Setscrew - [id number] Implanted:Qty: 4 on 10/16/2021 by Edgardo Zuñiga MD at [facility] Spine Lumbar DePuy Spine [employer] LP-749186 10/16/2022 [id number] / / Graft Vivigen 15cc - [id number] - [id number] Implanted:Qty: 1 on 03/18/2024 by Edgardo Zuñiga MD at [facility] N/A: Spine Lumbar [facility]-[id number] 02/02/2025 -1500-004 -[id number] / [id number] / [id number] Screw 5.5mm Viper Ti Fen Crtcl Polyax 7mm X 50mm - [id number] Implanted:Qty: 3 on 03/18/2024 by Edgardo Zuñiga MD at [facility] N/A: Spine Lumbar De[employer]uy Spine Sales LP-450516 [id number] / / Single Inner Setscrew - [id number] Implanted:Qty: 6 on 03/18/2024 by Edgardo Zuñiga MD at [facility] N/A: Spine Lumbar De[employer]uy Spine Sales LP-750716 [id number] / / Pre-Lordosed Joe W/ Line 65mm - [id number] Implanted:Qty: 2 on 03/18/2024 by Edgardo Zuñiga MD at [facility] N/A: Spine Lumbar De[employer]uy Spine [employer] LP-[id number] [id number] / / Procedures Procedure Name Priority Date/Time Associated Diagnosis Comments PBPROC Routine 07/06/2025 1:00 PM EST Sensory neuropathy Meralgia paresthetica of right side COMPREHENSIVE METABOLIC PANEL, PLASMA Routine 05/09/2025 10:40 AM EDT High risk medication use HEPATITIS C ANTIBODY - ED W/REFLEX TO HCV QUANT PCR STAT 04/25/2024 10:55 PM EDT from Last 3 Months or Most Recently Relevant to Health Maintenance Results * EMG / Nerve Conduction Study (07/06/2025 1:00 PM EST) Anatomical Region Laterality Modality Other Narrative 07/06/2025 1:00 PM EST Marquez Brandon MD 07/06/2025 5:00 PM EMG / Nerve Conduction Study Performed by: Marquez Brandon MD Authorized by: Mook Martinez MD Mook Martinez MD NEUROLOGY ORDERABLES Final Result * (ABNORMAL) Comprehensive metabolic panel (05/09/2025 10:40 AM EDT) Glucose, Plasma 89 74 - 99 mg/dL 05/09/2025 12:33 PM EDT [facility] BUN, Plasma 15 8 - 23 mg/dL 05/09/2025 12:33 PM EDT [facility] Creatinine, Plasma 0.63 0.60 - 1.10 mg/dL 05/09/2025 12:33 PM EDT [facility] BUN/Creatinine Ratio 24 05/09/2025 12:33 PM EDT [facility] Sodium, Plasma 147(H) 136 - 145 mmol/L 05/09/2025 12:33 PM EDT [facility] Potassium, Plasma 4.8 3.6 - 4.9 mmol/L 05/09/2025 12:33 PM EDT [facility] Chloride, Plasma 107 97 - 107 mmol/L 05/09/2025 12:33 PM EDT [facility] CO2, Plasma 31(H) 22 - 29 mmol/L 05/09/2025 12:33 PM EDT [facility] Anion Gap 9 6 - 16 mmol/L 05/09/2025 12:33 PM EDT [facility] Total Calcium, Plasma 9.7 8.9 - 10.2 mg/dL 05/09/2025 12:33 PM EDT [facility] Total Protein 6.3 6.3 - 7.9 g/dL 05/09/2025 12:33 PM EDT [facility] Albumin, Plasma 3.5 3.5 - 5.2 g/dL 05/09/2025 12:33 PM EDT [facility] AST, Plasma 39(H) 10 - 35 U/L 05/09/2025 12:33 PM EDT [facility] ALT, Plasma 25 10 - 35 U/L 05/09/2025 12:33 PM EDT [facility] Alkaline Phosphatase, Plasma 103 46 - 142 U/L 05/09/2025 12:33 PM EDT [facility] Total Bilirubin, Plasma 0.5 0.2 - 1.1 mg/dL 05/09/2025 12:33 PM EDT [facility] eGFRcr 95.0 mL/min/1.7 3m*2 05/09/2025 12:33 PM EDT [facility] Comment:Reported eGFRcr in m L/min/1.73m2 is based the CKD-EPI 2020 equation that does not use a race coefficient. Blood Venous blood specimen / Unknown Venipuncture / Unknown 05/09/2025 10:40 AM EDT 05/09/2025 10:41 AM EDT us Suzan Sanchez DO LAB BLOOD ORDERABLES Final Result [facility] [address] [place] [address] * Hepatitis C Antibody - ED (04/25/2024 10:55 PM EDT) Hepatitis C Antibody Negative Negative 04/25/2024 11:46 PM EDT [facility] Blood Venous blood specimen / Unknown Venipuncture / Unknown 04/25/2024 10:55 PM EDT 04/25/2024 11:05 PM EDT us Yelena Mcqueen MD LAB BLOOD ORDERABLES Final Res ult [facility] [address] [place] [address] from Last 3 Months or Most Recently Relevant to Health [place] [address] [facility] Advance Directives * Full Code (Latest Code [...] Patient has decision-making capacity? Yes Care Teams Slot Tag Inserter Relationship Specialty Start Date End Date Marc Rodriguez MD [address] [place] [address] PCP - General 12/14/20 Edgardo Zuñiga MD [address] [place] [address] Surgeon Neurosurgery 03/04/21 Giulia Briggs PA [address] [place] [address] Physician Senior Marketing Manager Neurosurgery 07/03/21 Edgardo Zuñiga MD [address] [place] [address] Surgeon Neurosurgery 09/16/21 Esther Mathew PA [address] [place] [address] Physician Senior Marketing Manager Neurology 11/19/22
--- OUTSIDE RECORDS SUMMARY | 2025-07-20 11:24 | XMS_ITS | Encounter Summary ---
Author Organization Healthcare Address [address] [place] [address] Care Team Providers Care Security Orderly Name Role Phone Marc Rodriguez MD Primary Care Provider [phone] Edgardo Zuñiga MD Unavailable [phone] Giulia Briggs Unavailable [phone] Edgardo Zuñiga MD Unavailable [phone] Esther Mathew Unavailable [phone] Encounter Details Date Type Department Care Team (Late st Contact Info) Description 12/16/2023 Orders Only External Location [address] [place] [address] Provider, External Social History Tobacco Use Types [...] AM EST Appointment [facility] Radiology [address] 1st [place] [address] 09/11/2025 11:50 AM EST Office Visit [facility] at [facility] [address] [place] [address] Ryan Laura Suzan, [address] [place] [address] 03/07/2026 9:20 AM EDT Office Visit [facility] Orthopaedic Surgery & Sports Medicine [address] [place] [address] Edgardo Zuñiga MD [address] [place] [address] documented as of this encounter [...] documented as of this encounter Care Teams Security Orderly Relationship Specialty Start Date End Date Marc Rodriguez MD [address] [place] [address] PCP - General 12/14/20 Edgardo Zuñiga MD [address] [place] [address] Surgeon Neurosurgery 03/04/21 Giulia Briggs PA [address] [place] [address] Physician Dramatic Agent Neurosurgery 07/03/21 Edgardo Zuñiga MD [address] [place] [address] Surgeon Neurosurgery 09/16/21 Esther Mathew PA [address] [place] [address] Physician Dramatic Agent Neurology 11/19/22 documented as of this encounter
--- OUTSIDE RECORDS SUMMARY | 2025-07-20 11:24 | XMS_ITS | Encounter Summary ---
Author Organization Healthcare Address [address] [place] [address] Care Team Providers Care Coo Name Role Phone Marc Rodriguez MD Primary Care Provider [phone] Edgardo Zuñiga MD Unavailable [phone] Giulia Briggs Unavailable [phone] Edgardo Zuñiga MD Unavailable [phone] Esther Mathew Unavailable [phone] Encounter Details Date Type Department Care Team (Late st Contact Info) Description 05/10/2025 Results Follow-Up [facility] [address] [place] [address] Preeti Delacruz Social History Tobacco Use Types [...] Care Team (Nora steward Contact Info) Description 08/23/2025 11:35 AM EST Appointment [facility] S Radiology [address] 1st [place] [address] 09/11/2025 11:50 AM EST Office Visit [facility] [address] [place] [address] Suzan Galindo DO [address] [place] [address] 03/07/2026 9:20 AM EDT Office Visit [facility] [address] [place] [address] Edgardo Zuñiga MD [address] [place] [address] documented as of this encounter [...] documented as of this encounter Care Teams Coo Relationship Specialty Start Date End Date Marc Rodriguez MD [address] [place] [address] PCP - General 12/14/20 Edgardo Zuñiga MD [address] [place] [address] Surgeon Neurosurgery 03/04/21 Giulia Briggs PA [address] [place] [address] Physician Poultry Picker Neurosurgery 07/03/21 Edgardo Zuñiga MD [address] [place] [address] Surgeon Neurosurgery 09/16/21 Esther Mathew PA [address] [place] [address] Physician Poultry Picker Neurology 11/19/22 documented as of this encounter
--- OUTSIDE RECORDS SUMMARY | 2025-07-20 11:25 | XMS_ITS | Encounter Summary ---
Author Organization Healthcare Address [address] [place] [address] Care Team Providers Care Manager Registration Name Role Phone Marc Rodriguez MD Primary Care Provider [phone] Edgardo Zuñiga MD Unavailable [phone] Giulia Briggs Unavailable [phone] Edgardo Zuñiga MD Unavailable [phone] Esther Mathew Unavailable [phone] Reason for Visit * Reason Onset Date Comments Med Refill 07/05/2024 Encounter Details Date Type Department Care Team (Late st Contact Info) Description 07/05/2024 Refill [facility] [address], [address] [place] [address] Esther Mathew PA [address] [place] [address] Social History Tobacco Use Types [...] the past 12 months has th e [employer], gas, oil, or water company threatened to [...] so slowly that other people could have noticed. Or the opposite - being so fidgety or restless that you have been moving around a lot more than usual Not at all 07/05/2024 10:01 AM Gulshan Mclaughlin Thoughts that you would be b [...] (Past 1 Month) No 024 10:00 AM Preeti Mclaughlin 2. Non-Specific Active Suici arpan Thoughts (Past 1 Month) No 07/05/2024 10:00 AM EST Marin Delacruzjulio cesar Ledezma 6. Suicidal Behavior (Lifetime) No 10:00 AM EST Marin Delacruzjulio cesar Ledezma documented as of this encounter Miscellaneous Notes * Telephone Encounter - Esther Mathew PA - 07/06/2024 8:26 AM EST I will hold on the refill if this was stopped by another provider. documented in this encounter Plan of Treatment Upcoming Encounters Date Type Department Care Team (Late st Contact Info) Description 08/23/2025 11:35 AM EST Appointment [facility] S Radiology [address]st [place] [address] 09/11/2025 11:50 AM EST Office Visit [facility] at [facility] [address] [place] [address] Suzan Galindo DO [address] [place] [address] 03/07/2026 9:20 AM EDT Office Visit [facility] [address] [place] [address] Edgardo Zuñiga MD [address] [place] [address] documented as of this encounter [...] as of this encounter Care Teams Manager Registration Relationship Specialty Start Date End Date Marc Rodriguez MD [address] [place], [place] [address] PCP - General 12/14/20 Edgardo Zuñiga MD [address] [place] [address] Surgeon Neurosurgery 03/04/21 Giulia Briggs PA [address] [place] [address] Physician Cotton Washer Neurosurgery 07/03/21 Edgardo Zuñiga MD [address] [place] [address] Surgeon Neurosurgery 09/16/21 Esther Mathew PA [address] [place] [address] Physician Cotton Washer Neurology 11/19/22 documented as of this encounter
--- OUTSIDE RECORDS SUMMARY | 2025-07-20 11:25 | XMS_ITS | Encounter Summary ---
Author Organization Healthcare Address [address] [place] [address] Care Team Providers Care Slagger Name Role Phone Marc Rodriguez MD Primary Care Provider [phone] Edgardo Zuñiga MD Unavailable [phone] Giulia Briggs Unavailable [phone] Edgardo Zuñiga MD Unavailable [phone] Esther Mathew Unavailable [phone] Reason for Visit * Reason Comments Med Refill Encounter Details Date Type Department Care Team (Late st Contact Info) Description 06/09/2025 Refill [place] [facility] [address] [place] [address] Esther Mathew PA [address] [place] [address] Social History Tobacco Use Types [...] the past 12 months has th e [employer], gas, oil, or water [employer] threatened to shut off services in your [...] S Radiology [address] [place] [address] 09/11/2025 11:50 AM EST Office Visit [facility] [address] [place] [address] Suzan Galindo DO [address] [place] [address] 03/07/2026 9:20 AM EDT Office Visit [facility] [address] [place] [address] Edgardo Zuñiga MD [address] [place] [address] documented as of this encounter [...] documented as of this encounter Care Teams Slagger Relationship Specialty Start Date End Date Marc Rodriguez MD [address] [place] [address] PCP - General 12/14/20 Edgardo Zuñiga MD [address] [place] [address] Surgeon Neurosurgery 03/04/21 Giulia Briggs PA [address] [place] [address] Physician Criminal Justice Professor Neurosurgery 07/03/21 Edgardo Zuñiga MD [address] [place] [address] Surgeon Neurosurgery 09/16/21 Esther Mathew PA [address] [place] [address] Physician Criminal Justice Professor Neurology 11/19/22 documented as of this encounter
--- OUTSIDE RECORDS SUMMARY | 2025-07-20 11:25 | XMS_ITS | Encounter Summary ---
Author Organization Healthcare Address [address] [place] [address] Care Team Providers Care Worker'S Compensation Claims Examiner Name Role Phone Marc Rodriguez MD Primary Care Provider [phone] Edgardo Zuñiga MD Unavailable [phone] Giulia Briggs Unavailable [phone] Edgardo Zuñiga MD Unavailable [phone] Esther Mathew Unavailable [phone] Encounter Details Date Type Department Care [...] S Radiology [address] 1st [place] [address] 09/11/2025 11:50 AM EST Office Visit [facility] [address] [place] [address] Suzan Galindo, [address] [place] [address] 03/07/2026 9:20 AM EDT Office Visit [facility] Orthopaedic Surgery & Sports Medicine [address] 1st Floor [address] [place] [address] Edgardo Zuñiga MD [address] [place] [address] documented as of this encounter [...] documented as of this encounter Care Teams Worker'S Compensation Claims Examiner Relationship Specialty Start Date End Date Marc Rodriguez MD [address] [place] [address] PCP - General 12/14/20 Edgardo Zñuiga MD [address] [place] [address] Surgeon Neurosurgery 03/04/21 Giulia Briggs PA [address] [place] [address] Physician Strap Sewer Neurosurgery 07/03/21 Edgardo Zuñiga MD [address] [place] [address] Surgeon Neurosurgery 09/16/21 Esther Mathew PA [address] [place] [address] Physician Strap Sewer Neurology 11/19/22 documented as of this encounter
--- OUTSIDE RECORDS SUMMARY | 2025-07-20 11:25 | XMS_ITS | Encounter Summary ---
Author Organization Healthcare Address [address] [place] [address] Care Team Providers Care Shoe Coverer Name Role Phone Marc Rodriguez MD Primary Care Provider [phone] Edgardo Zuñiga MD Unavailable [phone] Giulia Briggs Unavailable [phone] Edgardo Zuñiga MD Unavailable [phone] Esther Mathew Unavailable [phone] Encounter Details Date Type Department Care [...] S Radiology [address], 1st [place] [address] 09/11/2025 11:50 AM EST Office Visit [facility] [address] [place] [address] Suzan Galindo, [address] [place] [address] 03/07/2026 9:20 AM EDT Office Visit [facility] Orthopaedic Surgery & Sports Medicine [address] 1st Floor [address] [place] [address] Edgardo Zuñiga MD [address] [place] [address] documented as of this encounter [...] as of this encounter Care Teams Shoe Coverer Relationship Specialty Start Date End Date Marc Rodriguez MD [address] [place] [address] PCP - General 12/14/20 Edgardo Zuñiga MD [address] [place] [address] Surgeon Neurosurgery 03/04/21 Giulia Briggs PA [address] [place] [address] Physician Technical Marketing Consultant Neurosurgery 07/03/21 Edgardo Zuñiga MD [address] [place] [address] Surgeon Neurosurgery 09/16/21 Esther Mathew PA [address] [place] [address] Physician Technical Marketing Consultant Neurology 11/19/22 documented as of this encounter
--- OUTSIDE RECORDS SUMMARY | 2025-07-20 11:25 | XMS_ITS | Clinical Summary ---
Author Organization [facility] Address [address] [facility] [address] [place] [address] Phone Care Team Providers Care Bullet Maker Name Role Phone Rodrigo Avelar MD Unavailable [phone] Conditions or Problems No information available. Medications No information available. Medications Administered No information available. Allergies, Adverse Reactions, Alerts No information available. Results No information available. Plan of Care No information available. Procedures No information available. Vital Signs No information available. Immunizations No information available. Advance Directives No information available.
--- OUTSIDE RECORDS SUMMARY | 2025-07-20 11:25 | XMS_ITS | Encounter Summary ---
Author Organization [facility] Address [address] [place] [address] Care Team Providers Care Donation Worker Name Role Phone Marc Rodriguez MD Primary Care Provider [phone] Reason for Visit * Reason Onset Date Comments Med Refill 07/18/2025 Encounter Details Date Type Department Care Team (Late st Contact Info) Description 07/18/[address] [facility] PULMONARY & CRITICAL CARE MEDICINE [address] [place] [address] Kaitlin Joiner, HEAVY EQUIPMENT SERVICE MANAGER [address] [place], [place] [id number] Chronic allergic rhinitis (Primary Dx); Environmental and seasonal allergies; Severe persistent asthma without complication Social History [...] encounter Miscellaneous Notes * Telephone Encounter - Gene Singh MA - 07/18/2025 11:35 AM EST Pt called requesting refill of rx flonase. Refill approved and sent in. documented in this encounter Plan of Treatment Upcoming Encounters Date Type Department Care Team (Late st Contact Info) Description 07/25/2025 9:00 AM EST Appointment [facility]INVASIVE LAB [place] [address] [place] [address] 07/25/2025 12:15 PM EST Appointment [facility] CARDIOVASCULAR [facility] [place] [address] [facility] [address] [place] [address] 07/25/2025 1:45 PM EST Appointment [facility] [place] [address] [facility] [address] [place] [address] 01/11/2026 9:30 AM EDT Office Visit [facility] PULMONARY & CRITICAL CARE MEDICINE [address] [place] [address] Kaitlin Joiner, HEAVY EQUIPMENT SERVICE MANAGER [address] [place] [address] documented as of this encounter Visit Diagnoses Diagnosis Chronic allergic rhinitis- Primary Environmental and seasonal allergies Severe persistent asthma without complication documented in this encounter Care Teams Donation Worker Relationship Specialty Start Date End Date Marc Rodriguez MD [address] [facility] [address] [facility] [address] [place] [address] PCP - General Adolescent Medicine 12/08/16 documented as of this encounter
--- OUTSIDE RECORDS SUMMARY | 2025-07-20 11:25 | XMS_ITS | Encounter Summary ---
Author Organization Healthcare Address [address] [place] [address] Care Team Providers Care Bracer Name Role Phone Marc Rodriguez MD Primary Care Provider [phone] Edgardo Zuñiga MD Unavailable [phone] Giulia Briggs Unavailable [phone] Edgardo Zuñiga MD Unavailable [phone] Esther Mathew Unavailable [phone] Encounter Details Date Type Department Care [...] S Radiology [address], 1st [place] [address] 09/11/2025 11:50 AM EST Office Visit [facility] [address] [place] [address] Suzan Galindo, [address] [place] [address] 03/07/2026 9:20 AM EDT Office Visit [facility] Orthopaedic Surgery & Sports Medicine [address] 1[address] [place] [address] Edgardo Zuñiga MD [address] [place] [address] documented as of this encounter [...] documented as of this encounter Care Teams Bracer Relationship Specialty Start Date End Date Marc Rodriguez MD [address] [place] [address] PCP - General 12/14/20 Edgardo Zuñiga MD [address] [place] [address] Surgeon Neurosurgery 03/04/21 Giulia Briggs PA [address] [place] [address] Physician Assembler Aircraft Power Plant Neurosurgery 07/03/21 Edgardo Zuñiga MD [address] [place] [address] Surgeon Neurosurgery 09/16/21 Esther Mathew PA [address] [place] [address] Physician Assembler Aircraft Power Plant Neurology 11/19/22 documented as of this encounter
--- OUTSIDE RECORDS SUMMARY | 2025-07-20 11:25 | XMS_ITS | Encounter Summary ---
Author Organization Healthcare Address [address] [place] [address] Care Team Providers Care Production Control Technologist Name Role Phone Marc Rodriguez MD Primary Care Provider [phone] Edgardo Zuñiga MD Unavailable [phone] iGulia Briggs Unavailable [phone] Edgardo Zuñiga MD Unavailable [phone] Esther Mathew Unavailable [phone] Encounter Details Date Type Department Care Team [...] S Radiology [address], 1st [place] [address] 09/11/2025 11:50 AM EST Office Visit [facility] [address] [place] [address] Suzan Galindo, [address] [place] [address] 03/07/2026 9:20 AM EDT Office Visit [facility] Orthopaedic Surgery & Sports Medicine [address], 1[address] Floor [address] [place] [address] Edgardo Zuñiga MD [address] [place] [address] documented as of this encounter [...] of this encounter Care Teams Production Control Technologist Relationship Specialty Start Date End Date Marc Rodriguez MD [address] [place] [address] PCP - General 12/14/20 Edgardo Zuñiga MD [address] [place] [address] Surgeon Neurosurgery 03/04/21 Giulia Briggs PA [address] [place] [address] Physician Perinatal Technician Neurosurgery 07/03/21 Edgardo Zuñiga MD [address] [place] [address] Surgeon Neurosurgery 09/16/21 Esther Mathew PA [address] [place] [address] Physician Perinatal Technician Neurology 11/19/22 documented as of this encounter
--- OUTSIDE RECORDS SUMMARY | 2025-07-20 11:25 | XMS_ITS | Encounter Summary ---
[facility] Organization [facility] Address [address] [place] [address] Care Team Providers Care Beater Operator Name Role Phone Marc Rodriguez MD Primary Care Provider [phone] Encounter Details Date Type Department Care Team (Latest Contact Info) Description 06/19/2025 Travel Social History Tobacco Use Types Packs/Day [...] EST Appointment [facility] NONINVASIVE LAB [address] [address] 07/25/2025 12:15 PM EST Appointment [facility] CARDI[facility]ASCULAR LAB [place] [address] [facility] [address] [place] [address] 07/25/2025 1:45 PM EST Appointment [facility] [place] [address] [facility] [address] [place] [address] 01/11/2026 9:30 AM EDT Office Visit [facility] PULMONARY & CRITICAL CARE MEDICINE [address] [place] [address] Kaitlin Joiner, CLASP MACHINE OPERATOR [address] [place] [address] documented as of this encounter Visit Diagnoses Not on filedocumented in this encounter Care Teams Beater Operator Relationship Specialty Start Date End Date Marc Rodriguez MD [address] [facility] [address] [place] [address] PCP - General Adolescent Medicine 12/08/16 documented as of this encounter
--- OUTSIDE RECORDS SUMMARY | 2025-07-20 11:25 | XMS_ITS | Encounter Summary ---
[facility] Organization [facility] Address [address] [place] [address] Care Team Providers Care Furnace Unloader Name Role Phone Marc Rodriguez MD Primary Care Provider [phone] Reason for Visit * Reason Onset Date Comments DR. GOSS- SWELLING IN LEG/FEET 06/09/2025 Encounter Details Date Type Department Care Team (Late st Contact Info) Description 06/09/2025 Telephone [facility] CARDIOLOGY [address] [facility] [address], [place] [address] Jimmy Goss MD [address] [facility] [address], [place] [address] DR. GOSS- SWELLING IN LEG/FEET Social History [...] Frank Relationship: SPOUSE Best call back number: [phone] What is your medical concern? SWELLING IN [...] Info) Description 07/25/2025 9:00 AM EST Appointment [facility] NONINVASIVE LAB [address] [address] 07/25/2025 12:15 PM EST Appointment [facility] CARDIOVASCULAR LAB [place] [address] [address] 07/25/2025 1:45 PM EST Appointment [facility] CARDIOVASCULAR LAB [address] [address] 01/11/2026 9:30 AM EDT Office Visit [facility] PULMONARY & CRITICAL CARE MEDICINE [address] [facility] [place] [address] Kaitlin Joiner, MATERNITY FLOOR SUPERVISOR [address] [place] [address] documented as of this encounter Visit Diagnoses Not on filedocumented in this encounter Care Teams Furnace Unloader Relationship Specialty Start Date End Date Marc Rodriguez MD [address] [facility] [address] [place] [address] PCP - General Adolescent Medicine 12/08/16 documented as of this encounter
--- OUTSIDE RECORDS SUMMARY | 2025-07-20 11:25 | XMS_ITS | Encounter Summary ---
Author Organization [facility] Address [address] [place] [address] Care Team Providers Care Anode Worker Name Role Phone Marc Rodriguez MD Primary Care Provider [phone] Encounter Details Date Type Department Care Team (Latest Contact Info) Description 06/26/2025 Travel Social History Tobacco Use Types Packs/Day [...] Info) Description 07/25/2025 9:00 AM EST Appointment [facility] NONINVASIVE LAB [address] [address] 07/25/2025 12:15 PM EST Appointment [facility]ARDI[facility]ASCULAR LAB [place] [address] [facility] [address] [place] [address] 07/25/2025 1:45 PM EST Appointment [facility]ARD[facility]ULAR LAB [place] [address] [facility] [address] [place] [address] 01/11/2026 9:30 AM EDT Office Visit [facility] PULMONARY & CRITICAL CARE MEDICINE [address] [place] [address] Kaitlin Joiner, BATCH TANK CONTROLLER [address] [place] [address] documented as of this encounter Visit Diagnoses Not on filedocumented in this encounter Care Teams Anode Worker Relationship Specialty Start Date End Date Marc Rodriguez MD [address] [facility] [address] [place] [address] PCP - General Adolescent Medicine 12/08/16 documented as of this encounter
--- OUTSIDE RECORDS SUMMARY | 2025-07-20 11:26 | XMS_ITS | Encounter Summary ---
Author Organization [facility] ([place], [place], [place], [place], [place]) Address [address] [place] [address] Care Team Providers Care Machinist Outside Name Role Phone Unavailable Primary Care Provider Unavailabl e Encounter Details Date Type Department Care Team (Late st Contact Info) Description 07/27/2019 Transcribed Document [facility] Family Medicine [address] [place] [address] ProviderSonia MD [address] [place], [place] [address] Social History Tobacco Use Types Packs/Day Years Used Date Smoking Tobacco: Never Assessed Comments Unknown Sex and Gender Information Value Date Recorded Sex Assigned at Not on file Legal Sex Female 1:42 PM CDT Gender Identity Not on file Sexual Orientation Not on file documented as of this encounter Miscellaneous Notes * Cerner Conversion Note - Sonia ProviderMD - 07/27/2019 5:00 AM VINE FR[employer] FARMING SUPERVISOR Chart Check - Review Order Profile Entered On: 07/27/2019 6:57 EST Performed On: 07/27/2019 5:00 EST by Barrington Roberts RN Chart Check Powerplans Initiated/Discontinued as Appropriate : Yes All Active Orders Reviewed : Yes Barrington Roberts RN - 07/27/2019 6:57 EST Electronically signed by Raman [facility] Conversion Net Repairer Cerdwain at 11/19/2022 8:45 PM CDT documented in this encounter Plan of Treatment Not on file documented as of this encounter Visit Diagnoses Not on filedocumented in this encounter
--- OUTSIDE RECORDS SUMMARY | 2025-07-20 11:26 | XMS_ITS | Encounter Summary ---
Author Organization [employer] ([place], [place], [place], [place], [place]) Address [address] [place] [address] Care Team Providers Care Event Designer Name Role Phone Unavailable Primary Care Provider Unavailabl e Encounter Details Date Type Department Care Team (Late st Contact Info) Description 07/29/2019 Transcribed Document [facility] Family Medicine [address] [place] [address] ProviderSonia MD [address] [place] [address] Social History Tobacco Use Types Packs/Day Years Used Date Smoking Tobacco: Never Assessed Comments Unknown Sex and Gender Information Value Date Recorded Sex Assigned at Not on file Legal Sex Female 1:42 PM CDT Gender Identity Not on file Sexual Orientation Not on file documented as of this encounter Miscellaneous Notes * Cerner Conversion Note - Sonia ProviderMD - 07/29/2019 2:00 PM DRAFTER ELECTRONIC Pain Assessment Entered On: 07/29/2019 17:45 EST [...]
--- OUTSIDE RECORDS SUMMARY | 2025-07-20 11:26 | XMS_ITS | Encounter Summary ---
Author Organization [employer] ([place], [place], [place], [place], [place]) Address [address] [place] [address] Care Team Providers Care Principal Software Architect Name Role Phone Unavailable Primary Care Provider Unavailabl e Encounter Details Date Type Department Care Team (Late st Contact Info) Description 07/28/2019 Transcribed Document [facility] Family Medicine [address] [place] [address] ProviderSonia MD [address] [place], [place] [address] Social History Tobacco Use Types Packs/Day Years Used Date Smoking Tobacco: Never Assessed Comments Unknown Sex and Gender Information Value Date Recorded Sex Assigned at Not on file Legal Sex Female 1:42 PM CDT Gender Identity Not on file Sexual Orientation Not on file documented as of this encounter Miscellaneous Notes * Cerner Conversion Note - Historical ProviderMD - 07/28/2019 2:00 AM PATTERN CUTTER Director Of Physical Education Details Entered On: 07/28/2019 2:26 EST Performed [...] 07/28/2019 2:26 EST Electronically signed by Raman [facility] Conversion Senior Operations Analyst Cerner at 11/19/2022 8:36 PM CDT documented in this encounter Plan of Treatment Not on file documented as of this encounter Visit Diagnoses Not on filedocumented in this encounter
--- OUTSIDE RECORDS SUMMARY | 2025-07-20 11:26 | XMS_ITS ---
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 Name Role Phone TERRELL PHIPPS, LEOPOLDO Unavailable [phone] HARRIETT PHIPPS, EFFIE Koenig Primary Care Provider [phone] Yareli PHIPPS, Brian Shelton Unavailable [phone] Problems Includes: Active, inactive, and resolved Problems All Visits Onset Date Date of Diagnosis Resolved Date Provider Condition Status Joint Pain in Both Knees 11/07/2024 11/07/2024 Missael Avalos PA-C Active Last Documented On 5 1:43AM ; [facility], [facility] Joint Pain Hip Right 06/08/2019 06/08/2019 Violette Newton MD Active Last Documented On 5 1:39AM ; [facility], [facility] Joint Pain Shoulder Bilateral 08/20/2017 08/20/2017 Giancarlo Wood MD Active Last Documented On 5 1:39AM ; [facility] Joint Pain Shoulder 06/17/2017 06/17/2017 Amy Jimenez MD Active Last Documented On 5 1:39AM ; [facility] Right Forearm Bone Pain 01/09/2017 01/09/2017 Peace Jimenez MD Active Last Documented On 5 1:38AM ; [facility], [facility] Carpal Tunnel Syndrome 03/23/2015 03/23/2015 Hammad Downs MD Active Last Documented On 5 1:38AM ; [facility] Plan of Treatment Findings Encounter Date Patient screened for future fall risk: documentation of any fall with injury in past year Follow Up with Missael Avalos PA-C 12/19/2024 Last Documented On 5 8:56AM ; [facility] Patient screened for future fall risk: documentation of any fall with injury in past year NEW PROBLEM/EST PT with Missael Avalos PA-C 11/07/2024 Last Documented On 5 7:56AM ; [facility] Instructions to patient Instructions for patient to see pcp for bp and wt Last Documented On 5 8:56AM ; [facility] Lose weight Last Documented On 5 8:56AM ; [facility] Instructions for patient [...] all patient encounters Findings Encounter Date Overweight Follow Up with Missael Avalos PA-C 12/19/2024 Last Documented On 5 8:56AM ; [facility] Overweight NEW PROBLEM/EST PT with Missael Avalos PA-C 11/07/2024 Last Documented On 5 7:56AM ; [facility] Instructions Includes: Instructions for all patient encounters Instructions to patient Instructions for patient to see pcp for bp and wt Last Documented On 5 8:56AM ; [facility] Lose weight Last Documented On 5 8:56AM ; [facility] Instructions for patient [...] Last Documented On 5 8:26AM By Kaylynn Phliippe ; [facility] amLODIPine Besylate 5 MG Oral Tablet 11/04/2024 Prov ider: LEOPOLDO TEJADA MD Diagnosis: Last Documented On 5 8:26AM By Kaylynn Philippe ; [facility] Rosuvastatin Calcium 20 MG Oral Tablet 11/01/2024 Pr ovider: THOMPSON GOSS MD Diagnosis: Last Documented On 5 8:26AM By Kaylynn Philippe ; [facility] DULoxetine HCl 60 MG Oral Capsule Delayed Releas e Particles 10/28/2024 Provider: Diagnosis: Last Documented On 5 8:26AM By Kaylynn Philippe ; [facility] Donepezil HCl 23 MG Oral Tablet 10/25/2024 Provider: Esther Mathew PA-C Diagnosis: Last Documented On 5 8:26AM By Kaylynn Philippe ; [facility] Trulance 3 MG Oral Tablet 10/23/2024 Provider: YAKOV DIXON MD Diagnosis: Last Documented On 5 8:26AM By Kaylynn Philippe ; [facility] Memantine HCl 10 MG Oral Tablet 10/22/2024 Provider: Esther Mathew PA-C Diagnosis: Last Documented On 5 8:26AM By Kaylynn Philippe ; [facility] lamoTRIgine 100 MG Oral Tablet 10/22/2024 Provider: Esther Mathew PA-C Diagnosis: Last Documented On 5 8:26AM By Kaylynn Philippe ; [facility] Montelukast Sodium 10 MG Oral Tablet 10/18/2024 Prov ider: Diagnosis: Last Documented On 5 8:26AM By Kaylynn Philpipe ; [facility] Nitrofurantoin Monohyd Macro 100 MG Oral Capsule 10/17/2024 Provider: Maggi zimmer APRN Diagnosis: Last Documented On 5 8:26AM By Kaylynn Philippe ; [facility], [facility] Levothyroxine Sodium 88 MCG Oral Tablet 10/14/2024 Tony parker: LEOPOLDO TEJADA MD Diagnosis: Last Documented On 5 8:26AM By Kaylynn Philippe ; [facility] Dantrolene Sodium 50 MG Oral Capsule 10/13/2024 Prov ider: Suzan Sanchez MD Diagnosis: Last Documented On 5 8:26AM By Kaylynn Philippe ; [facility] Emgality 120 MG/ML Subcutane ous Solution Auto-injector 10/10/2024 Provider: Esther Mathew PA-C Diagnosis: Last Documented On 5 8:26AM By Kaylynn Philippe ; [facility] Pantoprazole Sodium 40 MG Or al Tablet Delayed Release 10/07/2024 Provider: LEOPOLDO TEJADA MD Diagnosis: Last Documented On 5 8:26AM By Kaylynn Philippe ; [facility], [facility] busPIRone HCl 5 MG Oral Tablet 10/04/2024 Provider: Suzan Sanchez MD Diagnosis: Last Documented On 5 8:26AM By Kaylynn Philippe ; [facility], [facility] Linzess 72 MCG Oral Capsule 10/03/2024 Provider: Maggi Crawford APRN Diagnosis: Last Documented On 5 8:26AM By Kaylynn Philippe ; [facility], [facility] Hydrocortisone 5 MG Oral Tablet 09/29/2024 Provider: LEOPOLDO TEJADA MD Diagnosis: Last Documented On 5 8:26AM By Kaylynn Philippe ; [facility] Cefdinir 300 MG Oral Capsule 09/29/2024 Provider: Diagnosis: Last Documented On 5 8:26AM By Kaylynn Philippe ; [facility] Past Medications on file Sodium Bicarbonate 325 MG Oral Tablet 07/09/2020 - 01/2025 Provider: Diagnosis: Last Documented On 5 8:24AM By Kaylynn Philippe ; [facility] Hydrocortisone 5 MG Oral Tablet 07/09/2020 - 5 Provider: Diagnosis: Last Documented On 5 8:24AM By Kaylynn Philippe ; [facility], [facility] lamoTRIgine 100 MG Oral Tablet 07/09/2020 - 11/07/2024 Provider: Diagnosis: Last Documented On 5 8:23AM By Kaylynn Philippe ; [facility], [facility] Levothyroxine Sodium 88 MCG Oral Tablet 07/09/2020 - 0 11/07/2024 Provider: Diagnosis: Last Documented On 5 8:24AM By Kaylynn Philippe ; [facility], [facility] Decara 1.25 MG (77578 UT) Oral Capsule 07/09/2020 - Provider: Diagnosis: Last Documented On 5 8:23AM By Kaylynn Philippe ; [facility], [facility] Magnesium 250 MG Oral Tablet 07/09/2020 - 11/08/19 Provider: Diagnosis: Last Documented On 5 8:23AM By Kaylynn Philippe ; [facility], [facility] Martínez Colon Health Oral Capsule 07/09/2020 - 2024 Provider: Diagnosis: Last Documented On 5 8:23AM By Kaylynn Philippe ; [facility], [facility] Stool Softener 100 MG Oral Capsule 07/09/2020 - Provider: Diagnosis: Last Documented On 5 8:23AM By Kaylynn Philippe ; [facility], [facility] Symbicort 160-4.5 MCG/ACT Inhalation Aerosol 0 - 11/07/2024 Provider: Diagnosis: Last Documented On 5 8:24AM By Kaylynn Philippe ; [facility], [facility] Albuterol Sulfate (2.5 MG/3M L) 0.083% Inhalation Nebulization solution 07/09/2020 - 11/07/2024 Provider: Diagnosis: Last Documented On 5 8:23AM By Kaylynn Philippe ; [facility], [facility] Azelastine HCl 0.1% Nasal Solution 07/09/2020 - 2024 Provider: Diagnosis: Last Documented On 5 8:25AM By Kaylynn Philippe ; [facility] Budesonide 0.25 MG/2ML Inhalation Suspension 0 - 11/07/2024 Provider: Diagnosis: Last Documented On 5 8:25AM By Kaylynn Philippe ; [facility] rOPINIRole HCl 0.5 MG Oral Tablet 07/09/2020 - 025 Provider: Diagnosis: Last Documented On 5 8:23AM By Kaylynn Philippe ; [facility] Memantine HCl 10 MG Oral Tablet 07/05/2020 - 5 Provider: Esther Mathew PA-C Diagnosis: Last Documented On 5 8:24AM By Kaylynn Philippe ; [facility] Zofran 4 MG Oral Tablet 07/20/2019 - 07/25/2019 Provid er: Patrick Newton MD Diagnosis: [id number] DO NOT FILL TILL 07/22/19 FOR SURGERY Last Documented On 9 12:44PM By Pat Oneil ; [facility] Colace 100 MG Oral Capsule 07/20/2019 - 10/18/2019 Provider: Patrick marsh MD Diagnosis: 1-2 tabs daily DO NOT FILL TILL 07/22/19 FOR SURGERY Last Documented On 9 12:44PM By Pat Oneil ; [facility] Neurontin 300 MG Oral Capsule 07/20/2019 - 10/18/2019 Provider: Patrick marsh MD Diagnosis: 1 every bedtime DO NOT ZEENAT L TILL 07/22/19 FOR SURGERY Last Documented On 9 12:34PM By Pat Oneil ; [facility] Dilaudid 2 MG Oral Tablet 07/20/2019 - 07/22/2019 Provider: Patrick marsh MD Diagnosis: 1-2 po q6h prn pain (RESCUE PAIN)DO NOT FILL TILL 07/22/19 FOR SURGERY Last Documented On 9 12:37PM By Pat Oneil ; [facility] Acetaminophen 500 MG Oral Tablet 07/20/2019 - 08/19/2019 Provider: Patrick Newton MD Diagnosis: 2 three times a day DO NOT FILL TILL 07/22/19 FOR SURGERY Last Documented On 9 12:44PM By Pat Oneil ; [facility], [facility] traMADol HCl 50 MG Oral Tablet 07/20/2019 - 07/25/2019 Provider: Patrick marsh MD Diagnosis: 1-2 po q6h prn pain DO NOT FILL TILL 07/22/19 FOR SURGERY Last Documented On 9 12:34PM By Pat Oneil ; [facility], [facility] oxyCODONE HCl 5 MG Oral Tablet 07/20/2019 - 07/25/2019 Provider: Patrick marsh MD Diagnosis: 1-2 po q6h prn pain DO NOT FILL TILL 07/22/19 FOR SURGERY Last Documented On 9 12:34PM By Pat Oneil ; [facility], [facility] Mupirocin 2% External Ointment 06/20/2019 - 06/25/2019 Provider: Patrick marsh MD Diagnosis: three times a day Apply to n ostrils 3 time a day 5 days prior to surgery. Last Documented On 9 1:10PM By Sushma Miller ; [facility], [facility] Advanced Probiotic Oral Capsule 06/08/2019 - 5 Provider: Diagnosis: Last Documented On 5 8:24AM By Kaylynn Philippe ; [facility], [facility] Restasis 0.05% Ophthalmic Emulsion 06/08/2019 - 2019 Provider: Diagnosis: Last Documented On 0 11:01AM By Sandra Mack ; [facility], [facility] SEROquel 300 MG Oral Tablet 06/08/2019 - 11/07/2024 Pr ovider: Diagnosis: Last Documented On 5 8:25AM By Kaylynn Philippe ; [facility], [facility] Ventolin HFA 108 (90 Base) M CG/ACT Inhalation Aerosol Solution 06/08/2019 - 07/09/2020 Provider: Diagnosis: Last Documented On 0 10:58AM By Sandra Mack ; [facility], [facility] Vitamin C 1000 MG Oral Tablet 06/08/2019 - 025 Provider: Diagnosis: Last Documented On 5 8:24AM By Kaylynn Philippe ; [facility], [facility] raNITIdine HCl 150 MG Oral Capsule 06/08/2019 - 2024 Provider: Diagnosis: Last Documented On 5 8:25AM By Kaylynn Philippe ; [facility], [facility] Daily Multivitamin Oral Capsule 06/08/2019 - 5 Provider: Diagnosis: Last Documented On 5 8:24AM By Kaylynn Philippe ; [facility], [facility] Melatonin 10 MG Oral Capsule 06/08/2019 - 11/08/19 25 Provider: Diagnosis: Last Documented On 5 8:24AM By Kaylynn Philippe ; [facility], [facility] Metoprolol Tartrate 10 MG/ML Oral Solution 06/08/2019 - 07/09/2020 Provider: Diagnosis: Last Documented On 0 10:56AM By Sandra Mack ; [facility], [facility] Montelukast Sodium 10 MG Oral Tablet 06/08/2019 - 01/2025 Provider: Diagnosis: Last Documented On 5 8:25AM By Kaylynn Philippe ; [facility], [facility] Albuterol Sulfate (2.5 MG/3M L) 0.083% Inhalation Nebulization solution 06/08/2019 - 11/07/2024 Provider: Diagnosis: Last Documented On 5 8:24AM By Kaylynn Philippe ; [facility], [facility] Alendronate Sodium 70 MG Oral Tablet 06/08/2019 - 01/2025 Provider: Diagnosis: Last Documented On 5 8:24AM By Kaylynn Philippe ; [facility], [facility] Alrex 0.2% Ophthalmic Suspension 06/08/2019 - 11/08/19 Provider: Diagnosis: Last Documented On 5 8:24AM By Kaylynn Philippe ; [facility], [facility] amLODIPine Besylate 5 MG Oral Tablet 06/08/2019 - 0 01/2025 Provider: Diagnosis: Last Documented On 5 8:24AM By Kaylynn Philippe ; [facility] Biotin 52462 MCG Oral Tablet 06/08/2019 - 11/07/2024 Tony morgander: Diagnosis: Last Documented On 5 8:24AM By Kaylynn Philippe ; [facility] Budesonide 0.25 MG/2ML Inhalation Suspension 9 - 11/07/2024 Provider: Diagnosis: Last Documented On 5 8:24AM By Kaylynn Philippe ; [facility] Crestor 20 MG Oral Tablet 06/08/2019 - 11/07/2024 Prov ider: Diagnosis: Last Documented On 5 8:25AM By Kaylynn Philippe ; [facility] Cymbalta 30 MG Oral Capsule Delayed Release Particles 06/08/2019 - 11/07/2024 Provider: Diagnosis: Last Documented On 5 8:24AM By Kaylynn Philippe ; [facility] Cymbalta 60 MG Oral Capsule Delayed Release Particles 06/08/2019 - 11/07/2024 Provider: Diagnosis: Last Documented On 5 8:25AM By Kaylynn Philippe ; [facility] Donepezil HCl 10 MG Oral Tablet 06/08/2019 - 5 Provider: Diagnosis: Last Documented On 5 8:24AM By Kaylynn Philippe ; [facility], [facility] Flax Seed Oil 1000 MG Oral Capsule 06/08/2019 - 2024 Provider: Diagnosis: Last Documented On 5 8:25AM By Kaylynn Philippe ; [facility] Fluticasone Furoate 100 MCG/ ACT Inhalation Aerosol Powder Breath Activated 06/08/2019 - 11/07/2024 Provider: Diagnosis: Last Documented On 5 8:25AM By Kalyynn Philippe ; [facility] Gabapentin 100 MG Oral Capsule 06/08/2019 - 07/09/2020 Provider: Diagnosis: Last Documented On 0 11:00AM By Sandra Mack ; [facility] Hydrocortisone 5 MG Oral Tablet 06/08/2019 - 5 Provider: Diagnosis: Last Documented On 5 8:25AM By Kaylynn Philippe ; [facility] EQ Hydrocortisone 1% External Cream 06/08/2019 - 11/07 Provider: Diagnosis: Last Documented On 5 8:25AM By Kaylynn Philippe ; [facility] lamoTRIgine 100 MG Oral Tablet 06/08/2019 - 11/07/2024 Provider: Diagnosis: Last Documented On 5 8:25AM By Kaylynn Philippe ; [facility], [facility] Levothyroxine Sodium 100 MCG Oral Capsule 06/08/2019 - 07/09/2020 Provider: Diagnosis: Last Documented On 0 10:57AM By Sandra Mack ; [facility], [facility] Lunesta 3 MG Oral Tablet 06/08/2019 - 11/07/2024 Provi brittanie: Diagnosis: Last Documented On 5 8:25AM By Kaylynn Philippe ; [facility], [facility] EQL Lutein 20 MG Oral Capsule 06/08/2019 - 11/07/2024 Provider: Diagnosis: Last Documented On 5 8:25AM By Kaylynn Philippe ; [facility], [facility] Vitamin D3 22941 UNIT Oral Capsule 06/08/2019 - Provider: Diagnosis: Last Documented On 5 8:24AM By Kaylynn Philippe ; [facility], [facility] Cyclobenzaprine HCl 5MG Oral Tablet 08/20/2017 - 10/19/2017 Provider: Giancarlo Wood MD Diagnosis: Take 1 tablet every 8 hrs// Last Documented On 8 4:16PM By Yelena Call ; [facility], [facility] Cyclobenzaprine HCl 5MG Oral Tablet 07/31/2017 - 09/29/2017 Provider: Amy gonzalez MD Diagnosis: Take 1 tablet every 8 hrs// Last Documented On 7 11:22AM By Sonia Lima ; [facility], [facility] Greer 5-325MG Oral Tablet 06/17/2017 - 07/17/2017 Prov ider: Ramone Staples MD Diagnosis: 1-2 every 4-6 hours as needed Last Documented On 7 9:20AM By Shelly Sood ; [facility], [facility] Voltaren 1 % Gel 03/25/2017 - 04/24/2017 Provider: Amy Jimenez MD Diagnosis: four times a day Last Documented On 7 10:06AM By Viktoria Chopra ; [facility] Flector 1.3 % Patch 03/25/2017 - 04/24/2017 Provider: Amy Jimenez MD Diagnosis: once a day Last Documented On 7 10:06AM By Viktoria Chopra ; [facility] Greer 10-325 MG Tablet 03/25/2017 - 04/24/2017 Provide r: Amy Jimenez MD Diagnosis: 1-2 po q 4-6h prn Last Documented On 7 9:59AM By Viktoria Chopra ; [facility] CeleXA 20 MG Tablet 02/25/2017 - 03/27/2017 Provider: Amy Jimenez MD Diagnosis: once a day Last Documented On 7 10:27AM By Haven Mancuso ; [facility], [facility] Flector 1.3 % Patch 02/25/2017 - 04/26/2017 Provider: Amy Jimenez MD Diagnosis: apply patch to affected area BID or as needed Last Documented On 7 9:57AM By Viktoria Chopra ; [facility] Greer 10-325 MG Tablet 02/25/2017 - 03/07/2017 Provide r: Amy Jimenez MD Diagnosis: 1-2 po q 4-6h prn Last Documented On 7 9:53AM By Viktoria Chopra ; [facility] Greer 10-325 MG Tablet 01/09/2017 - 01/19/2017 Provide r: Amy Jmienez MD Diagnosis: 1-2 po q 4-6h prn/jkp Last Documented On 7 1:10PM By Haven Mancuso ; [facility] Donepezil HCl 10 MG Tablet 01/07/2017 - 06/08/2019 Pro vider: Diagnosis: Last Documented On 9 2:17PM By Sandra Mack ; [facility] Hydrocortisone 10 MG Tablet 01/07/2017 - 06/08/2019 Pr ovider: JOSIAS DANIELSON JR. Diagnosis: Last Documented On 9 2:17PM By Sandra Mack ; [facility] Levothyroxine Sodium 88 MCG Tablet 01/07/2017 - 06/08/2019 Provider: JOSIAS DANIELSON JR. Diagnosis: Last Documented On 9 2:16PM By Sandra Mack ; [facility] ALPRAZolam 0.5 MG Tablet 01/07/2017 - 06/08/2019 Provi brittanie: Diagnosis: Last Documented On 9 2:17PM By Sandra Mack ; [facility], [facility] LamoTRIgine 100 MG Tablet 12/23/2016 - 06/08/2019 Prov ider: Diagnosis: Last Documented On 9 2:17PM By Sandra Mack ; [facility], [facility] Nystatin [id number] UNIT/ML Suspension 12/18/2016 - 06/08/2019 Provider: LEOPOLDO Garcia Diagnosis: Last Documented On 9 2:17PM By Sandra Mack ; [facility], [facility] Ranexa 1000 MG Tablet Extend ed Release 12 Hour 12/16/2016 - 06/08/2019 Provider: THOMPSON GOSS MD Diagnosis: Last Documented On 9 2:17PM By Sandra Mack ; [facility], [facility] Venlafaxine HCl 75 MG Tablet 12/16/2016 - 06/08/2019 P rovider: Diagnosis: Last Documented On 9 2:17PM By Sandra Mack ; [facility], [facility] Gabapentin 300 MG Capsule 12/16/2016 - 06/08/2019 Prov ider: SAGAR EASON MD Diagnosis: Last Documented On 9 2:17PM By Sandra Mack ; [facility], [facility] Donepezil HCl 10 MG Tablet 12/06/2016 - 06/08/2019 Pro vider: Diagnosis: Last Documented On 9 2:17PM By Sandra Mack ; [facility], [facility] QUEtiapine Fumarate 200 MG Tablet 12/06/2016 - 019 Provider: Diagnosis: Last Documented On 9 2:16PM By Sandra Mack ; [facility], [facility] Morphine Sulfate 10 MG/0.7ML Device (not specified) 03/23/2015 - 06/08/2019 Provider: Diagnosis: Last Documented On 9 2:16PM By Sandra Mack ; [facility], [facility] Effexor XR 150 MG Capsule, e xtended-release 24 hour 03/23/2015 - 06/08/2019 Provider: Diagnosis: Last Documented On 9 2:16PM By Sandra Mack ; [facility], [facility] Ranitidine HCl 150 MG Tablet 03/23/2015 - 06/08/2019 P rovider: Diagnosis: Last Documented On 9 2:16PM By Sandra Mack ; [facility], [facility] SEROquel 100 MG Tablet 03/23/2015 - 06/08/2019 Provide r: Diagnosis: Last Documented On 9 2:16PM By Sandra Mack ; [facility], [facility] Topiramate 100 MG Tablet 03/23/2015 - 06/08/2019 Provi brittanie: Diagnosis: Last Documented On 9 2:16PM By Sandra Mack ; [facility], [facility] Hydrocortisone 5 MG Tablet 03/23/2015 - 06/08/2019 Pro vider: Diagnosis: Last Documented On 9 2:16PM By Sandra Mack ; [facility], [facility] Crestor 10 MG Tablet 03/23/2015 - 06/08/2019 Provider: Diagnosis: Last Documented On 9 2:13PM By Sandra Mack ; [facility], [facility] Ranexa 1000 MG Tablet, extended-release 12 hour 03/23/2015 - 06/08/2019 Provider: Diagnosis: Last Documented On 9 2:17PM By Sandra Mack ; [facility], [facility] Medications Administered Includes: Administered Medications in patient's chart No Administered Medications Recorded Vital Signs Includes: Vital Signs from 07/20/2024 through 07/20/2025 Vital Name 12/19/2024 08:56A 11/07/2024 07: 56A Height (in) 67 67 Weight (lb) 195.3 200 Body Mass Index 30.6 31.3 Body Surface Area 2 2 Note: ab ab Last Documented: On 12/19/2024 9:07AM ; [facility] On 11/07/2024 7:56AM ; [facility] Results Includes: Results from 07/20/2024 through 07/20/2025 No Results Recorded For Specified Dates Social History Description Last Updated No recent change in diet 08/19/2022 Last Documented On 3 8:00AM ; [facility] Not a current smoker. 08/19/2022 Last Documented On 3 8:00AM ; [facility] Non-smoker 07/09/2020 Last Documented On 0 11:30AM ; [facility] Not a current smoker. 07/09/2020 Last Documented On 0 11:30AM ; [facility] No tobacco use 04/23/2015 Last Documented On 5 9:45AM ; [facility] Smoking status : Never smoker 04/23/2015 Last Documented On 5 9:45AM ; [facility] Caffeine use 03/23/2015 Last Documented On 5 10:01AM ; [facility] No recent change in diet 03/23/2015 Last Documented On 5 10:01AM ; [facility] Not a current smoker 03/23/2015 Last Documented On 5 10:01AM ; [facility] Not exercising regularly 03/23/2015 Last Documented On 5 10:01AM ; [facility] Not using alcohol 03/23/2015 Last Documented On 5 10:01AM ; [facility] Not using drugs 03/23/2015 Last Documented On 5 10:01AM ; [facility] Sex - Female 01/11/2025 Last Documented On 5 12:16PM ; [facility] Procedures and Surgical History Includes: Procedures from 07/20/2024 through 07/20/2025 Procedures Code Diagnosis Performing Provider Service Location Service Date Durolane Injections (Zero drug amount discarded, not administered to any patient) [id number] Bilateral primary osteoarthritis of knee Missael Avalos PA-C [facility] 12/28/2024 Last Documented On 5 1:27PM ; [facility] DRAIN/INJECT, JOINT/BURSA (Bilateral Procedure) Bilateral primary osteoarthritis of knee Missael Avalos PA-C [facility] 12/28/2024 Last Documented On 5 1:27PM ; [facility] X-RAY EXAM KNEE 4 OR MORE (Bilateral Procedure) [id number] Bilateral primary oste[facility]2024 Last Documented On 5 7:26AM ; [facility] Triamcinolone/Kenalog, 10mg per cc [id number] Unilateral primary osteoarthritis, right knee Missael GUYC [facility] 11/07/2024 Last Documented On 5 7:26AM ; [facility] DRAIN/INJECT, JOINT/BURSA (RIGHT) Unilateral primary osteoarthritis, right knee [facility] 11/07/2024 Last Documented On 5 7:26AM ; [facility] Surgical History Last Updated History of total hip replacement 023 Last Documented On 3 8:00AM ; [facility] History of appendectomy 03/23/2015 Last Documented On 5 10:01AM ; [facility] History of hysterectomy 03/23/2015 Last Documented On 5 10:01AM ; [facility] Medical History Includes: Medical History in patient's chart Description Last Updated History of Anemia 08/19/2022 Last Documented On 3 8:00AM ; [facility] History of arthritis 08/19/2022 Last Documented On 3 8:00AM ; [facility] History of Fractures 08/19/2022 Last Documented On 3 8:00AM ; [facility] History of Heartburn / Acid Reflux 08/19 Last Documented On 3 8:00AM ; [facility] History of Thyroid Disease 08/19/2022 Last Documented On 3 8:00AM ; [facility] Anemia 07/09/2020 Last Documented On 0 11:30AM ; [facility] Arthritis 07/09/2020 Last Documented On 0 11:30AM ; [facility] Heartburn / Acid Reflux 07/09/2020 Last Documented On 0 11:30AM ; [facility] History of Blood Transfusion 07/09/2020 Last Documented On 0 11:30AM ; [facility] History of Rheumatology 07/09/2020 Last Documented On 0 11:30AM ; [facility] Hypertension 07/09/2020 Last Documented On 0 11:30AM ; [facility] Previous Fractures 07/09/2020 Last Documented On 0 11:30AM ; [facility] Thyroid Disease 07/09/2020 Last Documented On 0 11:30AM ; [facility] A recent immunization for flu 07/09/2020 Last Documented On 0 11:30AM ; [facility] Appendectomy 07/09/2020 Last Documented On 0 11:30AM ; [facility] Hysterectomy 07/09/2020 Last Documented On 0 11:30AM ; [facility] Total hip replacement 07/09/2020 Last Documented On 0 11:30AM ; [facility] colon, 2 foot surgeries, tim n pump placement,cateracts, kidney stones, colectomy, heartburn/acid reflux 06/08/2019 Last Documented On 9 3:01PM ; [facility] A previous fracture 06/08/2019 Last Documented On 9 3:01PM ; [facility] History of asthma 06/08/2019 Last Documented On 9 3:01PM ; [facility] History of osteoporosis 06/08/2019 Last Documented On 9 3:01PM ; [facility] Rheumatology history 06/08/2019 Last Documented On 9 3:01PM ; [facility] Thyroid disease 06/08/2019 Last Documented On 9 3:01PM ; [facility] A recent immunization for pneumococcal p neumonia 10/05/2014 03/23/2015 Last Documented On 5 10:01AM ; [facility] Arthritic joint problems 03/23/2015 Last Documented On 5 10:01AM ; [facility] Gallbladder disease 03/23/2015 Last Documented On 5 10:01AM ; [facility] History of depression 03/23/2015 Last Documented On 5 10:01AM ; [facility] Family History Includes: Family History in patient's chart Description Last Updated Stroke / Seizures 08/19/2022 Last Documented On 3 8:00AM ; [facility] Diabetes mellitus 07/09/2020 Last Documented On 0 11:30AM ; [facility] Family history of osteoporosis 0 Last Documented On 0 11:30AM ; [facility] Family history of rheumatoid arthritis 1 09/09/2019 Last Documented On 0 11:30AM ; [facility] Family history [use for free text] 01/09 Last Documented On 7 2:01PM ; [facility] Family history of cancer 01/09/2017 Last Documented On 7 2:01PM ; [facility] Family history of diabetes mellitus 04/2017 Last Documented On 7 2:01PM ; [facility] Family history of heart disease 01/10/20 17 Last Documented On 7 2:01PM ; [facility] Mental Status Description Anxiety Last Documented On 5 8:56AM ; [facility] Anxiety Last Documented On 5 7:55AM ; [facility] Anxiety Last Documented On 3 2:49PM ; [facility] Anxiety Last Documented On 0 10:19AM ; [facility] Anxiety Last Documented On 0 11:29AM ; [facility] Anxiety Last Documented On 9 2:03PM ; [facility] No anxiety Last Documented On 8 8:12AM ; [facility] No anxiety Last Documented On 8 3:17PM ; [facility] No anxiety Last Documented On 7 9:34AM ; [facility] No anxiety Last Documented On 7 8:45AM ; [facility] No anxiety Last Documented On 7 10:30AM ; [facility] No anxiety Last Documented On 7 8:46AM ; [facility] No anxiety Last Documented On 7 9:18AM ; [facility] No anxiety Last Documented On 7 8:35AM ; [facility] No anxiety Last Documented On 7 12:05PM ; [facility] No anxiety Last Documented On 7 1:24PM ; [facility] Anxiety Last Documented On 5 9:18AM ; [facility] Anxiety Last Documented On 5 11:01AM ; [facility] Immunizations Includes: Immunizations in patient's chart Vaccine Dose # Date Site Reaction(s) Status Source Influenza 1 05/03/2020 Complete (Reported) Patient Last Documented On 0 11:15AM ; [facility] PCV (Pneumovax 23) 1 08/03/1997 Complete ( Reported) Patient Last Documented On 0 11:15AM ; [facility] Allergies Includes: Active, inactive, and resolved Allergies Substance Type Reaction Onset Date Resolved Date Statu s OTHER Allergy meropenem 06/08/2019 Active Last Documented On 5 8:55AM ; [facility] Lyrica Allergy 03/23/2015 Active Last Documented On 5 8:55AM ; [facility] Keflex Allergy 03/23/2015 Active Last Documented On 5 8:55AM ; [facility] Erythromycin Allergy 03/23/2015 Active Last Documented On 5 8:55AM ; [facility] Codeine Sulfate Allergy 03/23/2015 Act ru Last Documented On 5 8:55AM ; [facility] Clindamycin HCl Allergy 06/08/2019 Act ru Last Documented On 5 8:55AM ; [facility] Cleocin Allergy 03/23/2015 Active Last Documented On 5 8:55AM ; [facility] Cephalexin Allergy 06/08/2019 Active Last Documented On 5 8:55AM ; [facility] Care Aircraft Structure Mechanic Name (Identifier) Role/Relation Location/Telecom Last Documented By LEOPOLDO TEJADA MD ([id number]) [address] [facility] [address] [facility] [place], [place], [place], [address] tel:[phone] Last Documented On 01/09/2017 12:46PM ; [facility] EFFIE LORENZANA MD ([id number]) Primary care physician (occupation) [address] , [place], [place], [place], [address] tel:[phone] Last Documented On 01/11/2025 12:16PM ; [facility] Brian Downs MD ([id number]) Assigned practitioner (occupation) [address], [place], [place], [address] tel:[phone] Last Documented On 01/11/2025 12:16PM ; [facility] Encounters Includes: Encounters from 07/20/2024 through 07/20/2025 Encounter Provider Location (Healthcare Service Location) Date Check-In Time Check-Out Time Diagnosis Encounter Disposition ARCHIBALD Injection Missael Avalos PA-C [facility] 2024 7:48AM 8:29AM Follow Up Missael Avalos PA-C [facility] 2024 9:00AM 10:02AM Overweight NEW PROBLEM/EST PT Missael Avalos PA-C [facility] 04/07/ 2025 7:53AM 8:45AM Overweight Payer Includes: Active Insurance Policies Plan Name (Payer ID) Coverage Type Member ID Group # Subscriber (ID) Relationship Effective Dates 1 - Medicare Part B [facility] ([id number]) [id number] Sandie Frank Self 4 - Unknown Last Documented On 9 1:05PM ; [facility] 2 - [facility] ([id number]) [id number] Sandie Frank Self 08/03/19 19 - Unknown Last Documented On 9 1:06PM ; [facility] Clinical Notes Includes: Signed Clinical Notes starting from 07/17/2022 * Progress note Date Encounter Last Documented by 12/19/2024 Follow Up Last documented on 12/19/2024; 10:04 AM, Missael Avalos PA-C; [facility], [facility] Active Problems & Conditions - Carpal Tunnel [...] Care Team - LEOPOLDO TEJADA MD - JEWEL LATHE OPERATOR * Progress note Date Encounter Last Documented by 11/07/2024 NEW PROBLEM/EST PT Last document ed on 11/07/2024; 8:50 AM, Missael Avalos PA-C; [facility] Active Problems & Conditions - Carpal Tunnel [...] underwent a relatively large spinal fusion at [facility] this past summer. This is 2nd or [...] Care Team - LEOPOLDO TEJADA MD - JEWEL LATHE OPERATOR
--- OUTSIDE RECORDS SUMMARY | 2025-07-20 11:26 | XMS_ITS | Encounter Summary ---
Author Organization [employer] ([place], [place], [place], [place], [place]) Address [address] [place] [address] Care Team Providers Care Pediatric Occupational Therapist Name Role Phone Unavailable Primary Care Provider Unavailabl e Encounter Details Date Type Department Care Team (Late st Contact Info) Description 07/28/2019 Transcribed Document [facility] Radiology [address] [place] [address] Travis Robles MD [address] [place], [place] [id number] Social History Tobacco Use Types Packs/Day Years [...] with physical therapy with the , nurse, bottle caser all the bedside. She look like she is about to fallout ofthe bed. The patient's was asking about taking her home. He wanted to know if Dr. Patrick Knutson M.D. with orthopedic surgery actually goes to see patients at the [facility] That he does not go to the [facility] although 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 Physical therapy strongly agreed that he needs to go to inpatient rehabilitation either [facility] are at the [facility]. No fevers or chills. No nausea vomiting. [...] She is still agreeable to going to assisted facility. Patient's nurse and the patient's bottle caser who saw her upstairs saw her again [...] at the bedside as well as the bottle caser. They're looking at placement options. Apparently wanted facilities turn her down because of Lunesta apparently it's expensive medication and then there is a inhaler that she was getting that was expensive. I told her that we could probably find more affordable alternatives at least while she is in the assisted facility if necessary. Saturday, July 27, 2019. [...] list: Medical Adrenal insufficiency / SNOMED CT 6017527273 / Confirmed Aortic valve stenosis / SNOMED CT 951231801 / Confirmed Arthritis / SNOMED CT 8850352 / Confirmed Asthma / SNOMED CT 958462033 / Confirmed At risk for sleep apnea / IMO 09660172 / Confirmed Cataracts, both eyes / SNOMED CT 566924838 / Confirmed chronic back pain / SNOMED CT 235914390 / Confirmed chronic diarrhea / SNOMED CT 256134656 / Confirmed Chronic kidney disease / SNOMED CT 6966971959 / Confirmed B12 deficiency / SNOMED CT 731696099 / Confirmed Dementia / SNOMED CT 24199373 / Confirmed depression / SNOMED CT 96345849 / Confirmed uses Renexa / SNOMED CT 0544249 / Confirmed chronic hydrocort use / SNOMED CT 4484092 / Confirmed peripheral neuropathy / SNOMED CT 74373966 / Confirmed GERD / SNOMED CT 470870374 / Confirmed fibromyalgia / SNOMED CT 87094709 / Confirmed Glaucoma / SNOMED CT 02497991 / Confirmed migraine headaches / SNOMED CT 452981808 / Confirmed hx cataract surgery bilateral / SNOMED CT 1451892059 / Confirmed hx. chest pain / SNOMED CT 7868511025 / Confirmed hx colon resection secondary decreased function / SNOMED CT 9933432457 / Confirmed hx. frequent UTIs / SNOMED CT 1381995932 / Confirmed high cholesterol / SNOMED CT 02233020 / Confirmed high blood pressure / SNOMED CT 4424557051 / Confirmed Hypothyroidism / SNOMED CT 40222140 / Confirmed kidney stone right kidney current and hx / SNOMED CT 083262967 / Confirmed Osteoporosis / SNOMED CT 121713367 / Confirmed Pneumonia / SNOMED CT 758621842 / Confirmed restless leg syndrome / SNOMED CT 73645904 / Confirmed rheumatoid arthritis / SNOMED CT 448186509 / Confirmed Seasonal allergies / SNOMED CT 5515756646 / Confirmed Vitamin D deficiency / SNOMED CT 94026404 / Confirmed Resolved: Hypotension / SNOMED CT 74554541 Canceled: adrenal insufficiency / SNOMED CT 2959503092 Canceled: Hyperthyroidism / SNOMED CT 99292NNG-NYG8-712P-032Q-60290BRY9533, Active Problems (33) Adrenal insufficiency Aortic valve [...] mg, Rectal, 1-Time, PRN: Constipation Flonase: 1 Balmorhea, Nostrils Both, BID Florastor: 250 mg, Oral, [...] intl units oral capsule: 1 Cap, Oral, [id number], 0 Refill(s) Dilaudid: pain pump, 0 Refill(s) Flax Seed Oil: 1,200 mg, Oral, BID, 0 Refill(s) Flonase: 1 Balmorhea, Nostrils Both, BID Lunesta: 3 mg, Oral, [...] azelastine 205.5 mcg/inh (0.15%) nasal spray: 2 Balmorhea, Nasal, BID, PRN: for allergy symptoms, 0 [...] azelastine 205.5 mcg/inh (0.15%) nasal spray 2 Balmorhea, PRN, Nasal, BID biotin 5 mg, Oral, [...] 50,000 Int Units = 1 Cap, Oral, [id number] Dilaudid donepezil 23 mg, Oral, Daily famotidine 40 mg, Oral, BID Flax Seed Oil 1,200 mg, Oral, BID Flonase 1 Balmorhea, Nostrils Both, BID gabapentin 100 mg oral [...] Oral, QAM fluticasone 0.05% nasal spray 1 Balmorhea, Nostrils Both, BID gabapentin 100 mg cap [...] is obese and debilitated, her , nurse, bottle caser THE bedside. The really voiced some interest [...] the afternoon. The patient's nurse and her bottle caser who saw her yesterday at the bedside and we'll concur that she would benefit from short-term assisted facility placement given her right hip replacement. [...] 8.5, creatinine screw 0.9. PATIENT, her , bottle caser. She was turned down by the [facility] because she's on some expensive medications including [...] make sure hemoglobin is stable. Discussed with bottle caser and waiting on a rehabilitation bed preferably at [facility]. I did tell them on happy to change some medications around if they need any medications or affordable further pharmacy but ultimately she needs to be some place where she can get really intense rehabilitation so that she can go home and says lungs possible without any complications. [email or web address] system used. Computer program makes numerous spelling grammar mistakes. If you have any questions or concerns do not hesitate call Dr. Travis Lux at cell phone number [phone]. documented in this encounter Plan of Treatment Not on file documented as of this encounter Visit Diagnoses Not on filedocumented in this encounter
--- OUTSIDE RECORDS SUMMARY | 2025-07-20 11:26 | XMS_ITS | Encounter Summary ---
Author Organization [employer] ([place], [place], [place], [place], [place]) Address [address] [place] [address] Care Team Providers Care Engine Setter Name Role Phone Unavailable Primary Care Provider Unavailabl e Encounter Details Date Type Department Care Team (Late st Contact Info) Description 07/28/2019 Transcribed Document [facility] Family Medicine [address] [place] [address] ProviderSonia MD [address], [place] [address] Social History Tobacco Use Types Packs/Day Years Used Date Smoking Tobacco: Never Assessed Comments Unknown Sex and Gender Information Value Date Recorded Sex Assigned at Not on file Legal Sex Female 1:42 PM CDT Gender Identity Not on file Sexual Orientation Not on file documented as of this encounter Miscellaneous Notes * Cerner Conversion Note - Historical ProviderMD - 07/28/2019 5:00 AM RURAL ROUTE MAIL CARRIER Chart Check - Review Order Profile Entered On: 07/28/2019 4:25 EST Performed On: 07/28/2019 5:00 EST by Myrna Deleon, RN Chart Check Powerplans Initiated/Discontinued as Appropriate : Yes All Active Orders Reviewed : Yes Myrna Deleon RN - 07/28/2019 4:25 EST Electronically signed by Raman [facility] Conversion Buck Swamper Cerner at 11/19/2022 8:33 PM CDT documented in this encounter Plan of Treatment Not on file documented as of this encounter Visit Diagnoses Not on filedocumented in this encounter
--- OUTSIDE RECORDS SUMMARY | 2025-07-20 11:26 | XMS_ITS | Encounter Summary ---
Author Organization [employer] ([place], [place], [place], [place], [place]) Address [address] [place] [address] Care Team Providers Care Maintenance Custodian Name Role Phone Unavailable Primary Care Provider Unavailabl e Encounter Details Date Type Department Care Team (Late st Contact Info) Description 07/29/2019 Transcribed Document [facility] Family Medicine [address] [place] [address] ProviderSonia MD [address] [place], [place] [address] Social History Tobacco Use Types Packs/Day Years Used Date Smoking Tobacco: Never Assessed Comments Unknown Sex and Gender Information Value Date Recorded Sex Assigned at Not on file Legal Sex Female 1:42 PM CDT Gender Identity Not on file Sexual Orientation Not on file documented as of this encounter Miscellaneous Notes * Cerner Conversion Note - Sonia ProviderMD - 07/29/2019 12:02 PM CONSUMER SAFETY INSPECTOR On Going Discharge Planning Entered On: 07/29/2019 12:08 EST Performed On: 07/29/2019 12:02 EST by REMY LOPEZ, Care Management-Materials Specialist Care Management Progress Note Discharge Arrangements : Patient Post-Acute Information Patient Name: SANDIE FRANK Gender: Female : 51 Age: 63 Years No Post-Acute Placement(s) Listed No Post-Acute Service(s) Listed No [place] Referral(s) Listed Discharge Options Discussed with Patient : Short term rehabilitation REMY LOPEZ, Care Management-Materials Specialist - 07/29/2019 12:02 EST Narrative Progress Note Narrative Progress Note : [facility] has not responded, message left, lengthy discussion with pt and spouse regarding branching out to broaden search. also to look at [facility] swing Bed, they are agreeable to [...] Historical Progress Note : Per Romina at [facility], they are unable to accept due to cost of medications. awaiting contact from [facility] REMY LOPEZ, Care Management-Materials Specialist - 07/28/19 14:45:58 Received call from Catalina that at [facility] states the pt is declined for acute rehab and they are apprehensive about her coming to [facility] due to her physical level of care. CM relayed this to the pt and spouse and they agree to have the pt referred to the following: [facility], [facility] and [facility]. CM will fu for possible offers. Med list sent to [facility] for review. NICHOLAS HOGUE, RN-Repairer Handtools - 07/26/19 15:40:13 JAS sent text to Catalina with [facility] this am requesting update on bed availability. She has the pt being reviewed by their physician. JAS set ambulance tentatively for tomorrow at 1400. Awaiting word from [facility]. NICHOLAS HOGUE, RN-Repairer Handtools - 07/25/19 15:17:05 JAS sent text to Catalina with [facility] this am requesting update on bed availability. She has the pt being reviewed by their physician. JAS set ambulance tentatively for tomorrow at 1400. Awaiting word from [facility]. JAS updated pt and family. NICHOLAS HOGUE, RN-Repairer Handtools - 07/25/19 15:24:48 07/[address] mrs Frank and she is awake and les shaky today... States she wants to go to rehab for getting strength and balance .. Await JUAN garsia ,, She 's had her 3 Midnight stay in hospital .... LAMBERT Steele, RN-Repairer Handtools - 07/24/19 15:20:00 REMY LOPEZ, Care Management-Materials Specialist - 07/29/2019 12:02 EST Electronically signed by [facility], [facility] Conversion Heel Burnisher Cerner at 11/19/2022 8:39 PM CDT documented in this encounter Plan of Treatment Not on file documented as of this encounter Visit Diagnoses Not on filedocumented in this encounter
--- OUTSIDE RECORDS SUMMARY | 2025-07-20 11:26 | XMS_ITS | Encounter Summary ---
Author Organization [employer] ([place], [place], [place], [place], [place]) Address [address] [place] [address] Care Team Providers Care Television Parts Tester Name Role Phone Unavailable Primary Care Provider Unavailabl e Encounter Details Date Type Department Care Team (Late st Contact Info) Description 07/28/2019 Transcribed Document [facility] Family Medicine [address] [place] [address] ProviderSonia MD [address] [place] [id number] Social History Tobacco Use Types Packs/Day Years Used Date Smoking Tobacco: Never Assessed Comments Unknown Sex and Gender Information Value Date Recorded Sex Assigned at Not on file Legal Sex Female 1:42 PM CDT Gender Identity Not on file Sexual Orientation Not on file documented as of this encounter Miscellaneous Notes * Cerner Conversion Note - Sonia ProviderMD - 07/28/2019 2:00 PM SENIOR DATABASE PROGRAMMER Pain Assessment Entered On: 07/28/2019 18:05 EST [...]
--- OUTSIDE RECORDS SUMMARY | 2025-07-20 11:26 | XMS_ITS | Encounter Summary ---
Author Organization [employer] ([place], [place], [place], [place], [place]) Address [address] [place] [address] Care Team Providers Care Customs Guard Name Role Phone Unavailable Primary Care Provider Unavailabl e Encounter Details Date Type Department Care Team (Late st Contact Info) Description 07/28/2019 Transcribed Document [facility] [place] [address] [place] [address] ProviderSonia MD [address] [place], [place] [address] Social History Tobacco Use Types Packs/Day Years Used Date Smoking Tobacco: Never Assessed Comments Unknown Sex and Gender Information Value Date Recorded Sex Assigned at Not on file Legal Sex Female 1:42 PM CDT Gender Identity Not on file Sexual Orientation Not on file documented as of this encounter Miscellaneous Notes * Cerner Conversion Note - Sonia ProviderMD - 07/28/2019 5:00 PM FILAMENT MAKER Chart Check - Review Order Profile Entered On: 07/28/2019 19:59 EST Performed On: 07/28/2019 17:00 EST by Esther Cunningham RN Chart Check Powerplans Initiated/Discontinued as Appropriate : Yes All Active Orders Reviewed : Yes Esther Cunningham RN - 07/28/2019 19:59 EST Electronically signed by Raman [facility] Conversion Food Production Machine Operator Cerdwain at 11/19/2022 8:48 PM CDT documented in this encounter Plan of Treatment Not on file documented as of this encounter Visit Diagnoses Not on filedocumented in this encounter
--- OUTSIDE RECORDS SUMMARY | 2025-07-20 11:26 | XMS_ITS | Encounter Summary ---
Author Organization [employer] ([place], [place], [place], [place], [place]) Address [address] [place] [address] Care Team Providers Care Welt Wheeler Name Role Phone Unavailable Primary Care Provider Unavailabl e Encounter Details Date Type Department Care Team (Late st Contact Info) Description 07/29/2019 Transcribed Document [facility] [place] Medicine [address] [place] [address] ProviderSonia MD [address] [place], [place] [address] Social History Tobacco Use Types Packs/Day Years Used Date Smoking Tobacco: Never Assessed Comments Unknown Sex and Gender Information Value Date Recorded Sex Assigned at Not on file Legal Sex Female 1:42 PM CDT Gender Identity Not on file Sexual Orientation Not on file documented as of this encounter Miscellaneous Notes * Cerner Conversion Note - Sonia ProviderMD - 07/29/2019 6:00 AM MANAGER NUCLEAR Pain Assessment Entered On: 07/29/2019 8:36 EST [...]
--- OUTSIDE RECORDS SUMMARY | 2025-07-20 11:26 | XMS_ITS | Encounter Summary ---
Author Organization [employer] ([place], [place], [place], [place], [place]) Address [address] [place] [address] Care Team Providers Care Die Cast Die Maker Name Role Phone Unavailable Primary Care Provider Unavailabl e Encounter Details Date Type Department Care Team (Late st Contact Info) Description 07/28/2019 Transcribed Document [facility] [place] Medicine [address] [place] [address] ProviderSonia MD [facility] [place], [place] [address] Social History Tobacco Use Types Packs/Day Years Used Date Smoking Tobacco: Never Assessed Comments Unknown Sex and Gender Information Value Date Recorded Sex Assigned at Not on file Legal Sex Female 1:42 PM CDT Gender Identity Not on file Sexual Orientation Not on file documented as of this encounter Miscellaneous Notes * Cerner Conversion Note - Sonia ProviderMD - 07/28/2019 2:44 PM TRANSFORMATION ANALYST On Going Discharge Planning Entered On: 07/28/2019 14:45 EST Performed On: 07/28/2019 14:44 EST by REMY LOPEZ, Care Management-Contractor General Engineering Care Management Progress Note Discharge Arrangements : Patient Post-Acute Information Patient Name: SANDIE FRANK Gender: Female : 51 Age: 63 Years No Post-Acute Placement(s) Listed No Post-Acute Service(s) Listed No [place] Referral(s) Listed Discharge Options Discussed with Patient : Short term rehabilitation REMY LOPEZ, Care Management-Contractor General Engineering - 07/28/2019 14:44 EST Narrative Progress Note Narrative Progress Note : Per Romina at [facility], they are unable to accept due to cost of medications. awaiting contact from [facility] Historical Progress Note : Received call from [place]ina that MD at [facility] states the pt is declined for acute rehab and they are apprehensive about her coming to SRU due to her physical level of care. JAS relayed this to the pt and spouse and they agree to have the pt referred to the following: [facility], [facility] and [facility]. CM will fu for possible offers. Med list sent to [facility] for review. NICHOLAS HOGUE, RN-Installation Specialist - 07/26/19 15:40:13 JAS sent text to [place] with [facility] this am requesting update on bed availability. She has the pt being reviewed by their physician. CM set ambulance tentatively for tomorrow at 1400. Awaiting word from [facility]. NICHOLAS HOGUE, RN-Installation Specialist - 07/25/19 15:17:05 JAS sent text to [place] with [facility] this am requesting update on bed availability. She has the pt being reviewed by their physician. CM set ambulance tentatively for tomorrow at 1400. Awaiting word from [facility]. CM updated pt and family. NICHOLAS HOGUE, RN-Installation Specialist - 07/25/19 15:24:48 07/24 met with mrs Frank and she is awake and les shaky today... States she wants to go to rehab for getting strength and balance .. Await [facility] ady ,, She 's had her 3 Midnight stay in hospital .... LAMBERT Steele RN-Installation Specialist - 07/24/19 15:20:00 REMY LOPEZ Care Management-Contractor General Engineering - 07/28/2019 14:44 EST Electronically signed by [facility] Conversion Marketing Operations Specialist Cerner at 11/19/2022 8:25 PM CDT documented in this encounter Plan of Treatment Not on file documented as of this encounter Visit Diagnoses Not on filedocumented in this encounter
--- OUTSIDE RECORDS SUMMARY | 2025-07-20 11:26 | XMS_ITS | Encounter Summary ---
Author Organization [employer] ([place], [place], [place], [place], [place]) Address [address] [place] [address] Care Team Providers Care Tennis Camp Instructor Name Role Phone Unavailable Primary Care Provider Unavailabl e Encounter Details Date Type Department Care Team (Late st Contact Info) Description 07/28/2019 Transcribed Document [facility] [place] [address] [place] [address] ProviderSonia MD [facility] [place], [place] [address] Social History Tobacco Use Types Packs/Day Years Used Date Smoking Tobacco: Never Assessed Comments Unknown Sex and Gender Information Value Date Recorded Sex Assigned at Not on file Legal Sex Female 1:42 PM CDT Gender Identity Not on file Sexual Orientation Not on file documented as of this encounter Miscellaneous Notes * Cerner Conversion Note - Sonia ProviderMD - 07/28/2019 10:00 PM SCREWMAKER AUTOMATIC Pain Assessment Entered On: 07/29/2019 3:30 EST [...] form. Electronically signed by Ivelisse Camargo Conversion Certified Low Vision Therapist Cerner at 11/19/2022 8:40 PM CDT documented in this encounter Plan of Treatment Not on file documented as of this encounter Visit Diagnoses Not on filedocumented in this encounter
--- OUTSIDE RECORDS SUMMARY | 2025-07-20 11:26 | XMS_ITS | Encounter Summary ---
Author Organization [employer] Address [address] [place] [address] Care Team Providers Care Mattress Stuffer Name Role Phone Marc Rodriguez MD Primary Care Provider [phone] Encounter Details Date Type Department Care Team (Late st Contact Info) Description 06/18/2015 External CPT II STEEL HEATER - [facility] Social History Tobacco Use [...] Info) Description 07/25/2025 9:00 AM EST Appointment [facility] NONINVASIVE LAB [address] [address] 07/25/2025 12:15 PM EST Appointment [facility] CARDIOVASCULAR LAB [address] [place] [address] 07/25/2025 1:45 PM EST Appointment [facility] CARDIOVASCULAR LAB [address] [place] [address] 01/11/2026 9:30 AM EDT Office Visit [facility]ICAL [facility] PULMONARY & CRITICAL CARE MEDICINE [address] [place] [address] Kaitlin Joiner, COMMUNITY CULTURAL DEVELOPMENT OFFICER [address] [place] [address] documented as of this encounter Visit Diagnoses [...] documented as of this encounter Care Teams Mattress Stuffer Relationship Specialty Start Date End Date Marc Rodriguez MD [address] [facility] [address] [place] [address] PCP - General Adolescent Medicine 12/08/16 documented as of this encounter
--- OUTSIDE RECORDS SUMMARY | 2025-07-20 11:26 | XMS_ITS | Encounter Summary ---
[facility] Organization [facility] Address [address] [place] [address] Care Team Providers Care Automobile Rental Clerk Name Role Phone Marc Rodriguez MD Primary Care Provider [phone] Encounter Details Date Type Department Care Team (Late st Contact Info) Description 10/12/2014 External CPT II SENIOR MOBILE APPLICATION DEVELOPER - [facility] Social History Tobacco [...] EST Appointment [facility] NONINVASIVE LAB [address] [address] 07/25/2025 12:15 PM EST Appointment [facility] CARDIOVASCULAR LAB [address] [place] [address] 07/25/2025 1:45 PM EST Appointment [facility] CARDIOVASCULAR LAB [address] [place] [address] 01/11/2026 9:30 AM EDT Office Visit [facility] MEDICAL [facility] PULMONARY & CRITICAL CARE MEDICINE [address] [place] [address] Kaitlin Joiner, COLD STORAGE SUPERINTENDENT [address] [place] [address] documented as of this encounter Visit Diagnoses [...] documented as of this encounter Care Teams Automobile Rental Clerk Relationship Specialty Start Date End Date Marc Rodriguez MD [address] [facility] [address] [place] [address] PCP - General Adolescent Medicine 12/08/16 documented as of this encounter
--- OUTSIDE RECORDS SUMMARY | 2025-07-20 11:26 | XMS_ITS | Encounter Summary ---
[facility] Organization [facility] Address [address] [place] [address] Care Team Providers Care Inspector Government Property Name Role Phone Marc Rodriguez MD Primary Care Provider [phone] Encounter Details Date Type Department Care Team (Late st Contact Info) Description 01/11/2015 External CPT II PLASTERER TENDER - [facility] Social History Tobacco [...] Info) Description 07/25/2025 9:00 AM EST Appointment [facility] NONINVASIVE LAB [address] [address] 07/25/2025 12:15 PM EST Appointment [facility] CARDIOVASCULAR LAB [address] [place] [address] 07/25/2025 1:45 PM EST Appointment [facility] CARDIOVASCULAR LAB [address] [place] [address] 01/11/2026 9:30 AM EDT Office Visit [facility] PULMONARY & CRITICAL CARE MEDICINE [address] [place] [address] Kaitlin Joiner, BAIL ATTACHER [address] [place] [address] documented as of this encounter Visit Diagnoses [...] as of this encounter Care Teams Inspector Government Property Relationship Specialty Start Date End Date Marc Rodriguez MD [address] [facility] [address] [place] [address] PCP - General Adolescent Medicine 12/08/16 documented as of this encounter
--- OUTSIDE RECORDS SUMMARY | 2025-07-20 11:26 | XMS_ITS | Encounter Summary ---
Author Organization [employer] ([place], [place], [place], [place], [place]) Address [address] [place] [address] Care Team Providers Care Physiological Chemist Name Role Phone Unavailable Primary Care Provider Unavailabl e Encounter Details Date Type Department Care Team (Late st Contact Info) Description 07/30/2019 Transcribed Document [facility] [place] [address] [place] [address] ProviderSonia MD [address] [place], [place] [address] Social History Tobacco Use Types Packs/Day Years Used Date Smoking Tobacco: Never Assessed Comments Unknown Sex and Gender Information Value Date Recorded Sex Assigned at Not on file Legal Sex Female 1:42 PM CDT Gender Identity Not on file Sexual Orientation Not on file documented as of this encounter Miscellaneous Notes * Cerner Conversion Note - Sonia ProviderMD - 07/30/2019 6:00 AM ARC WELDER Pain Assessment Entered On: 07/30/2019 20:46 EST [...] form. Electronically signed by Ivelisse Camargo Conversion Advanced Practice Psychiatric Nurse Cerner at 11/19/2022 8:34 PM CDT documented in this encounter Plan of Treatment Not on file documented as of this encounter Visit Diagnoses Not on filedocumented in this encounter
--- OUTSIDE RECORDS SUMMARY | 2025-07-20 11:26 | XMS_ITS | Encounter Summary ---
Author Organization [employer] ([place], [place], [place], [place], [place]) Address [address] [place] [address] Care Team Providers Care Electric Range Assembler Name Role Phone Unavailable Primary Care Provider Unavailabl e Encounter Details Date Type Department Care Team (Late st Contact Info) Description 07/27/2019 Transcribed Document [facility] [place] [address] [place] [address] ProviderSonia MD [facility] [place], [place] [address] Social History Tobacco Use Types Packs/Day Years Used Date Smoking Tobacco: Never Assessed Comments Unknown Sex and Gender Information Value Date Recorded Sex Assigned at Not on file Legal Sex Female 1:42 PM CDT Gender Identity Not on file Sexual Orientation Not on file documented as of this encounter Miscellaneous Notes * Cerner Conversion Note - Sonia ProviderMD - 07/27/2019 10:00 PM HR ADMINISTRATOR Pain Assessment Entered On: 07/28/2019 2:26 EST [...]
--- OUTSIDE RECORDS SUMMARY | 2025-07-20 11:26 | XMS_ITS | Clinical Summary ---
Author Organization [facility] Address [address] [facility] [address] [place] [address] Care Team Providers Care Adjudication Specialist Name Role Phone Unavailable Primary Care [...] age to complete this topic Insurance MEDICARE [address]
--- OUTSIDE RECORDS SUMMARY | 2025-07-20 11:26 | XMS_ITS | Encounter Summary ---
Author Organization [facility] Address [address] [place] [address] Care Team Providers Care Abattoir Manager Name Role Phone Marc Rodriguez MD Primary Care Provider [phone] Encounter Details Date Type Department Care Team (Late st Contact Info) Description 11/13/2014 External CPT II DIRECTOR HEDIS - [facility] Social History Tobacco Use [...] Info) Description 07/25/2025 9:00 AM EST Appointment [facility] NONINVASIVE LAB [address] [address] 07/25/2025 12:15 PM EST Appointment [facility] CARDIOVASCULAR LAB [address] [place] [address] 07/25/2025 1:45 PM EST Appointment [facility] CARDIOVASCULAR LAB [address] [place] [address] 01/11/2026 9:30 AM EDT Office Visit [facility] PULMONARY & CRITICAL CARE MEDICINE [address] [place] [address] Kaitlin Joiner, FREIGHT WEIGHER [address] [place] [address] documented as of this encounter Visit Diagnoses [...] documented as of this encounter Care Teams Abattoir Manager Relationship Specialty Start Date End Date Marc Rodriguez MD [address] [facility] [address] [place] [address] PCP - General Adolescent Medicine 12/08/16 documented as of this encounter
--- OUTSIDE RECORDS SUMMARY | 2025-07-20 11:26 | XMS_ITS | Encounter Summary ---
Author Organization [employer] ([place], [place], [place], [place], [place]) Address [address] [place] [address] Care Team Providers Care Parimutuel Ticket Seller Name Role Phone Unavailable Primary Care Provider Unavailabl e Encounter Details Date Type Department Care Team (Late st Contact Info) Description 07/29/2019 Transcribed Document [facility] [place] Family Medicine [address] [place] [address] ProviderSonia MD [address] [place], [place] [address] Social History Tobacco Use Types Packs/Day Years Used Date Smoking Tobacco: Never Assessed Comments Unknown Sex and Gender Information Value Date Recorded Sex Assigned at Not on file Legal Sex Female 1:42 PM CDT Gender Identity Not on file Sexual Orientation Not on file documented as of this encounter Miscellaneous Notes * Cerner Conversion Note - Sonia ProviderMD - 07/29/2019 5:00 AM CARPENTER ASSISTANT Chart Check - Review Order Profile Entered On: 07/29/2019 5:10 EST Performed On: 07/29/2019 5:00 EST by Myrna Deleon, RN Chart Check Powerplans Initiated/Discontinued as Appropriate : Yes All Active Orders Reviewed : Yes Myrna Deleon RN - 07/29/2019 5:10 EST Electronically signed by Raman [facility] Conversion Book Reviewer Cerner at 11/19/2022 8:24 PM CDT documented in this encounter Plan of Treatment Not on file documented as of this encounter Visit Diagnoses Not on filedocumented in this encounter
--- OUTSIDE RECORDS SUMMARY | 2025-07-20 11:26 | XMS_ITS | Encounter Summary ---
Author Organization [employer] ([place], [place], [place], [place], [place]) Address [address] [place] [address] Care Team Providers Care Physician General Practice Name Role Phone Unavailable Primary Care Provider Unavailabl e Encounter Details Date Type Department Care Team (Late st Contact Info) Description 07/28/2019 Transcribed Document [facility] [place] [address] [place] [address] ProviderSonia MD [address] [place] [address] Social History Tobacco Use Types Packs/Day Years Used Date Smoking Tobacco: Never Assessed Comments Unknown Sex and Gender Information Value Date Recorded Sex Assigned at Not on file Legal Sex Female 1:42 PM CDT Gender Identity Not on file Sexual Orientation Not on file documented as of this encounter Miscellaneous Notes * Cerner Conversion Note - Sonia ProviderMD - 07/28/2019 6:00 AM AGRICULTURAL LABOR CAMP MANAGER Pain Assessment Entered On: 07/28/2019 13:40 EST [...] form. Electronically signed by Ivelisse Camargo Conversion Diesel Pile Hammer Operator Cerner at 11/19/2022 8:36 PM CDT documented in this encounter Plan of Treatment Not on file documented as of this encounter Visit Diagnoses Not on filedocumented in this encounter
--- OUTSIDE RECORDS SUMMARY | 2025-07-20 11:26 | XMS_ITS | Encounter Summary ---
Author Organization [facility] Address [address] [place] [address] Care Team Providers Care Oyster Buyer Name Role Phone Marc Rodriguez MD Primary Care Provider [phone] Encounter Details Date Type Department Care Team (Late st Contact Info) Description 10/10/2014 External CPT II COMMUTATOR V RING ASSEMBLER - [facility] Social History Tobacco [...] Appointment [facility] NONINVASIVE LAB [address] [address] 07/25/2025 12:15 PM EST Appointment [facility] CARDIOVASCULAR LAB [address] [place] [address] 07/25/2025 1:45 PM EST Appointment [facility] CARDIOVASCULAR LAB [address] [place] [address] 01/11/2026 9:30 AM EDT Office Visit [facility] MEDICAL [facility] PULMONARY & CRITICAL CARE MEDICINE [address] [place] [address] Kaitlin Joiner, LABORATORY ASST [address] [place] [address] documented as of this encounter Visit Diagnoses [...] as of this encounter Care Teams Oyster Buyer Relationship Specialty Start Date End Date Marc Rodriguez MD [address] [facility] [address] [place] [address] PCP - General Adolescent Medicine 12/08/16 documented as of this encounter
--- OUTSIDE RECORDS SUMMARY | 2025-07-20 11:26 | XMS_ITS | Encounter Summary ---
Author Organization [employer] ([place], [place], [place], [place], [place]) Address [address] [place] [address] Care Team Providers Care Retail Merchandising Coordinator Name Role Phone Unavailable Primary Care Provider Unavailabl e Encounter Details Date Type Department Care Team (Late st Contact Info) Description 07/29/2019 Transcribed Document [facility] [place] Medicine [address] [place] [address] ProviderSonia MD [address] [place], [place] [address] Social History Tobacco Use Types Packs/Day Years Used Date Smoking Tobacco: Never Assessed Comments Unknown Sex and Gender Information Value Date Recorded Sex Assigned at Not on file Legal Sex Female 1:42 PM CDT Gender Identity Not on file Sexual Orientation Not on file documented as of this encounter Miscellaneous Notes * Cerner Conversion Note - Sonia ProviderMD - 07/29/2019 5:00 PM HATCHERY WORKER Chart Check - Review Order Profile Entered [...]
--- OUTSIDE RECORDS SUMMARY | 2025-07-20 11:26 | XMS_ITS ---
Author Organization [facility] Address [address] [place] [address] Care Team Providers Care Instrument Shop Supervisor Name Role Phone Marc Rodriguez MD Primary Care Provider [phone] Asthma - External Fill Status:Enrolled (Active) Start date:05/10/2024 Enrollment date:05/10/2024 Enrollment reason:Identified as being on target medication Current support & services provided:Refill Coordination , Benefits Investigation, Prior Authorization, External Pharmacy Dispensing Linked medications:Dupilumab () Linked problems:Severe persistent asthma without complication (Active) Continued Care and Services Coordination
--- OUTSIDE RECORDS SUMMARY | 2025-07-20 11:27 | XMS_ITS | Encounter Summary ---
Author Organization [employer] ([place], [place], [place], [place], [place]) Address [address] [place] [address] Care Team Providers Care Scanner Supervisor Name Role Phone Unavailable Primary Care Provider Unavailabl e Encounter Details Date Type Department Care Team (Late st Contact Info) Description 07/30/2019 Transcribed Document [facility] [place] [address] [place] [address] ProviderSonia MD [address] [place], [place] [address] Social History Tobacco Use Types Packs/Day Years Used Date Smoking Tobacco: Never Assessed Comments Unknown Sex and Gender Information Value Date Recorded Sex Assigned at Not on file Legal Sex Female 1:42 PM CDT Gender Identity Not on file Sexual Orientation Not on file documented as of this encounter Miscellaneous Notes * Cerner Conversion Note - Sonia ProviderMD - 07/30/2019 10:00 PM CADD TECHNICIAN Pain Assessment Entered On: 07/31/2019 5:26 EST [...]
--- OUTSIDE RECORDS SUMMARY | 2025-07-20 11:27 | XMS_ITS | Encounter Summary ---
Author Organization [employer] ([place], [place], [place], [place], [place]) Address [address] [place] [address] Care Team Providers Care Oven Press Tender Name Role Phone Unavailable Primary Care Provider Unavailabl e Encounter Details Date Type Department Care Team (Late st Contact Info) Description 07/29/2019 Transcribed Document [facility] [place] [address] [place] [address] ProviderSonia MD [address] [place], [place] [address] Social History Tobacco Use Types Packs/Day Years Used Date Smoking Tobacco: Never Assessed Comments Unknown Sex and Gender Information Value Date Recorded Sex Assigned at Not on file Legal Sex Female 1:42 PM CDT Gender Identity Not on file Sexual Orientation Not on file documented as of this encounter Miscellaneous Notes * Cerner Conversion Note - Sonia ProviderMD - 07/29/2019 2:00 AM ELECTRONEURODIAGNOSTIC TECHNICIAN Television Cabinet Finisher Details Entered On: 07/29/2019 3:31 EST Performed [...] 07/29/2019 3:31 EST Electronically signed by Raman [facility] Conversion Pool Servicer Cerner at 11/19/2022 8:45 PM CDT documented in this encounter Plan of Treatment Not on file documented as of this encounter Visit Diagnoses Not on filedocumented in this encounter
--- OUTSIDE RECORDS SUMMARY | 2025-07-20 11:27 | XMS_ITS | Encounter Summary ---
Author Organization [employer] ([place], [place], [place], [place], [place]) Address [address] [place] [address] Care Team Providers Care Manager Outreach Name Role Phone Unavailable Primary Care Provider Unavailabl e Encounter Details Date Type Department Care Team (Late st Contact Info) Description 07/29/2019 Transcribed Document [facility] Radiology [address] [place] [address] Travis Robles MD [address] [place], [place] [id number] Social History Tobacco Use Types Packs/Day Years [...] with physical therapy with the , nurse, housing case manager all the bedside. She look like she is about to fallout ofthe bed. The patient's was asking about taking her home. He wanted to know if Dr. Patrick Knutson M.D. with orthopedic surgery actually goes to see patients at the [facility] That he does not go to the [facility] although 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 Physical therapy strongly agreed that he needs to go to inpatient rehabilitation either [facility] are at the [facility]. No fevers or chills. No nausea vomiting. [...] custodial facility. Patient's nurse and the patient's housing case manager who saw her upstairs saw [...] at the bedside as well as the housing case manager. They're looking at placement options. Apparently [...] not enough for her to go to [facility] at this point. Encouraged her [...] list: Medical Adrenal insufficiency / SNOMED CT 8265056843 / Confirmed Aortic valve stenosis / SNOMED CT 254116624 / Confirmed Arthritis / SNOMED CT 6651887 / Confirmed Asthma / SNOMED CT 019400750 / Confirmed At risk for sleep apnea / IMO 30413697 / Confirmed Cataracts, both eyes / SNOMED CT 881034599 / Confirmed chronic back pain / SNOMED CT 833383233 / Confirmed chronic diarrhea / SNOMED CT 754377953 / Confirmed Chronic kidney disease / SNOMED CT 5752023938 / Confirmed B12 deficiency / SNOMED CT 969516308 / Confirmed Dementia / SNOMED CT 70056443 / Confirmed depression / SNOMED CT 94225635 / Confirmed uses Renexa / SNOMED CT 5795718 / Confirmed chronic hydrocort use / SNOMED CT 8424843 / Confirmed peripheral neuropathy / SNOMED CT 05462073 / Confirmed GERD / SNOMED CT 458622189 / Confirmed fibromyalgia / SNOMED CT 82715347 / Confirmed Glaucoma / SNOMED CT 33577011 / Confirmed migraine headaches / SNOMED CT 747026694 / Confirmed hx cataract surgery bilateral / SNOMED CT 4264434768 / Confirmed hx. chest pain / SNOMED CT 9829053699 / Confirmed hx colon resection secondary decreased function / SNOMED CT 4465330159 / Confirmed hx. frequent UTIs / SNOMED CT 5289481230 / Confirmed high cholesterol / SNOMED CT 13135691 / Confirmed high blood pressure / SNOMED CT 3740465428 / Confirmed Hypothyroidism / SNOMED CT 99565876 / Confirmed kidney stone right kidney current and hx / SNOMED CT 202049390 / Confirmed Osteoporosis / SNOMED CT 312111760 / Confirmed Pneumonia / SNOMED CT 955752918 / Confirmed restless leg syndrome / SNOMED CT 74242349 / Confirmed rheumatoid arthritis / SNOMED CT 166869978 / Confirmed Seasonal allergies / SNOMED CT 6597351388 / Confirmed Vitamin D deficiency / SNOMED CT 59246247 / Confirmed Resolved: Hypotension / SNOMED CT 87255718 Canceled: adrenal insufficiency / SNOMED CT 6774638767 Canceled: Hyperthyroidism / SNOMED CT [id number], Active Problems (33) Adrenal insufficiency Aortic valve [...] mg, Rectal, 1-Time, PRN: Constipation Flonase: 1 [place], Nostrils Both, BID Florastor: 250 mg, Oral, [...] intl units oral capsule: 1 Cap, Oral, W3Slpiz, 0 Refill(s) Dilaudid: pain pump, 0 Refill(s) Flax Seed Oil: 1,200 mg, Oral, BID, 0 Refill(s) Flonase: 1 [place], Nostrils Both, BID Lunesta: 3 mg, Oral, [...] azelastine 205.5 mcg/inh (0.15%) nasal spray: 2 [place], Nasal, BID, PRN: for allergy symptoms, 0 [...] azelastine 205.5 mcg/inh (0.15%) nasal spray 2 [place], PRN, Nasal, BID biotin 5 mg, Oral, [...] 50,000 Int Units = 1 Cap, Oral, [id number] Dilaudid donepezil 23 mg, Oral, Daily famotidine 40 mg, Oral, BID Flax Seed Oil 1,200 mg, Oral, BID Flonase 1 [place], Nostrils Both, BID gabapentin 100 mg oral [...] Oral, QAM fluticasone 0.05% nasal spray 1 [place], Nostrils Both, BID gabapentin 100 mg cap [...] is obese and debilitated, her , nurse, housing case manager THE bedside. The really voiced [...] the afternoon. The patient's nurse and her housing case manager who saw her yesterday at [...] 8.5, creatinine screw 0.9. PATIENT, her , housing case manager. She was turned down by the [facility] because she's on some expensive medications including [...] make sure hemoglobin is stable. Discussed with housing case manager and waiting on a rehabilitation bed preferably at [facility]. I did tell them on happy [...] increased to 9, creatinine is 1.0. Mr. Guerline told her she is to work with physical therapy so that she can qualify for inpatient rehabilitation. Otherwise restart looking at other locations. Also have the case management team see what alternative medications he continues for her to qualify for the [facility] [place] some anxiety about the cost of Lunesta. [employer] dictation system used. Computer program makes numerous spelling grammar mistakes. If you have any questions or concerns do not hesitate call Dr. Travis Lux at cell phone number [phone]. documented in this encounter Plan of Treatment Not on file documented as of this encounter Visit Diagnoses Not on filedocumented in this encounter
--- OUTSIDE RECORDS SUMMARY | 2025-07-20 11:27 | XMS_ITS | Encounter Summary ---
Author Organization [employer] ([place], [place], [place], [place], [place]) Address [address] [place] [address] Care Team Providers Care Automotive Mechanical Engineer Name Role Phone Unavailable Primary Care Provider Unavailabl e Encounter Details Date Type Department Care Team (Late st Contact Info) Description 07/30/2019 Transcribed Document [facility] [place] [address] [place] [address] ProviderSonia MD [address], [place] [address] Social History Tobacco Use Types Packs/Day Years Used Date Smoking Tobacco: Never Assessed Comments Unknown Sex and Gender Information Value Date Recorded Sex Assigned at Not on file Legal Sex Female 1:42 PM CDT Gender Identity Not on file Sexual Orientation Not on file documented as of this encounter Miscellaneous Notes * [employer]ner Conversion Note - Sonia ProviderMD - 07/30/2019 5:00 PM VACUUM BOTTLE ASSEMBLER Chart Check - Review Order Profile Entered On: 07/30/2019 20:49 EST Performed On: 07/30/2019 17:00 EST by Jennifer Coleman, RN Chart Check Powerplans Initiated/Discontinued as Appropriate : Yes All Active Orders Reviewed : Yes Jennifer Coleman, RN - 07/30/2019 20:49 EST Electronically signed by Raman [facility] Conversion Trash Collector Truck Driver Cerner at 11/19/2022 8:38 PM CDT documented in this encounter Plan of Treatment Not on file documented as of this encounter Visit Diagnoses Not on filedocumented in this encounter
--- OUTSIDE RECORDS SUMMARY | 2025-07-20 11:27 | XMS_ITS | Encounter Summary ---
Author Organization [employer] ([place], [place], [place], [place], [place]) Address [address] [place] [address] Care Team Providers Care Provider Network Manager Name Role Phone Unavailable Primary Care Provider Unavailabl e Encounter Details Date Type Department Care Team (Late st Contact Info) Description 07/29/2019 Transcribed Document [facility] [place] [address] [place] [address] ProviderSonia MD [facility] [place] [address] Social History Tobacco Use Types Packs/Day Years Used Date Smoking Tobacco: Never Assessed Comments Unknown Sex and Gender Information Value Date Recorded Sex Assigned at Not on file Legal Sex Female 1:42 PM CDT Gender Identity Not on file Sexual Orientation Not on file documented as of this encounter Miscellaneous Notes * Cerner Conversion Note - Sonia ProviderMD - 07/29/2019 11:45 PM EMPLOYEE COMMUNICATIONS SPECIALIST Rapid Response Team Documentation Entered On: 07/30/2019 [...] change in location/level of care Rapid Response Provider Network Manager #1 : Liyah Dobbins, RN Liyah Dobbins, RN - 07/30/2019 0:08 EST Electronically signed by Raman [facility] Conversion [employer] Social Worker Cerner at 11/19/2022 8:42 PM CDT documented in this encounter Plan of Treatment Not on file documented as of this encounter Visit Diagnoses Not on filedocumented in this encounter
--- OUTSIDE RECORDS SUMMARY | 2025-07-20 11:27 | XMS_ITS | Encounter Summary ---
Author Organization [employer] ([place], [place], [place], [place], [place]) Address [address] [place] [address] Care Team Providers Care Director Outcomes Name Role Phone Unavailable Primary Care Provider Unavailabl e Encounter Details Date Type Department Care Team (Late st Contact Info) Description 07/31/2019 Transcribed Document [facility] [place] [address] [place] [address] ProviderSonia MD [address] [place], [place] [address] Social History Tobacco Use Types Packs/Day Years Used Date Smoking Tobacco: Never Assessed Comments Unknown Sex and Gender Information Value Date Recorded Sex Assigned at Not on file Legal Sex Female 1:42 PM CDT Gender Identity Not on file Sexual Orientation Not on file documented as of this encounter Miscellaneous Notes * Cerner Conversion Note - Sonia ProviderMD - 07/31/2019 5:00 PM REGISTERED NURSE NURSERY Chart Check - Review Order Profile Entered On: 07/31/2019 16:18 EST Performed On: 07/31/2019 17:00 EST by Trina Adorno RN Chart Check Powerplans Initiated/Discontinued as Appropriate : Yes All Active Orders Reviewed : Yes Trina Adorno RN - 07/31/2019 16:18 EST Electronically signed by Raman [facility] Conversion Mold Maintenance Technician Fela at 11/19/2022 8:24 PM CDT documented in this encounter Plan of Treatment Not on file documented as of this encounter Visit Diagnoses Not on filedocumented in this encounter
--- OUTSIDE RECORDS SUMMARY | 2025-07-20 11:27 | XMS_ITS | Encounter Summary ---
Author Organization [employer] ([place], [place], [place], [place], [place]) Address [address] [place] [address] Care Team Providers Care Senior Adults Director Name Role Phone Unavailable Primary Care Provider Unavailabl e Encounter Details Date Type Department Care Team (Late st Contact Info) Description 07/29/2019 Transcribed Document [facility] [place] [address] [place] [address] ProviderSonia MD [address] [place] [id number] Social History Tobacco Use Types Packs/Day Years Used Date Smoking Tobacco: Never Assessed Comments Unknown Sex and Gender Information Value Date Recorded Sex Assigned at Not on file Legal Sex Female 1:42 PM CDT Gender Identity Not on file Sexual Orientation Not on file documented as of this encounter Miscellaneous Notes * Cerner Conversion Note - Sonia ProviderMD - 07/29/2019 10:00 PM ENTRY LEVEL PROGRAMMER Pain Assessment Entered On: 07/30/2019 2:07 EST [...] form. Electronically signed by Ivelisse Camargo Conversion Production Manufacturing Worker Cerner at 11/19/2022 8:45 PM CDT documented in this encounter Plan of Treatment Not on file documented as of this encounter Visit Diagnoses Not on filedocumented in this encounter
--- OUTSIDE RECORDS SUMMARY | 2025-07-20 11:27 | XMS_ITS | Encounter Summary ---
Author Organization [employer] ([place], [place], [place], [place], [place]) Address [address] [place] [address] Care Team Providers Care Family Resource Management Professor Name Role Phone Unavailable Primary Care Provider Unavailabl e Encounter Details Date Type Department Care Team (Late st Contact Info) Description 07/30/2019 Transcribed Document [facility] [place] [address] [place] [address] ProviderSonia MD [address] [place] [id number] Social History Tobacco Use Types Packs/Day Years Used Date Smoking Tobacco: Never Assessed Comments Unknown Sex and Gender Information Value Date Recorded Sex Assigned at Not on file Legal Sex Female 1:42 PM CDT Gender Identity Not on file Sexual Orientation Not on file documented as of this encounter Miscellaneous Notes * Cerner Conversion Note - Sonia ProviderMD - 07/30/2019 11:55 AM CORE EXTRUDER On Going Discharge Planning Entered On: 07/30/2019 11:55 EST Performed On: 07/30/2019 11:55 EST by REMY LOPEZ Care Management-Sales Operations Consultant Care Management Progress Note Discharge Arrangements : Patient Post-Acute Information Patient Name: SANDIE FRANK Gender: Female : 51 Age: 63 Years No Post-Acute Placement(s) Listed No Post-Acute Service(s) Listed No [place] Referral(s) Listed Discharge Options Discussed with Patient : Short term rehabilitation REMY LOPEZ, Care Management-Sales Operations Consultant - 07/30/2019 11:55 EST Narrative Progress Note Narrative Progress Note : UPDATED CLINICAL SENT VIA [facility], Historical Progress Note : [facility] has not responded, message left, lengthy discussion with pt and spouse regarding branching out to broaden search. also to look at [facility] swing Bed, they are agreeable to [...] have that option. Referral process continued with [facility] Referrals, Case Management will continue to follow. REMY LOPEZ, Care Management-Sales Operations Consultant - 07/29/19 12:08:26 Per Romina at [facility], they are unable to accept due to cost of medications. awaiting contact from [facility] REMY LOPEZ Care Management-Sales Operations Consultant - 07/28/19 14:45:58 Received call from Catalina that at [facility] states the pt is declined for acute rehab and they are apprehensive about her coming to [facility] due to her physical level of care. CM relayed this to the pt and spouse and they agree to have the pt referred to the following: [facility], [facility] and [facility]. CM will fu for possible offers. Med list sent to [facility] for review. NICHOLAS HOGUE, RN-Emergency Medicine Medical Director - 07/26/19 15:40:13 JAS sent text to Catalina with [facility] this am requesting update on bed availability. She has the pt being reviewed by their physician. CM set ambulance tentatively for tomorrow at 1400. Awaiting word from [facility]. NICHOLAS HOGUE, RN-Emergency Medicine Medical Director - 07/25/19 15:17:05 JAS sent text to Catalina with [facility] this am requesting update on bed availability. She has the pt being reviewed by their physician. JAS set ambulance tentatively for tomorrow at 1400. Awaiting word from [facility]. JAS updated pt and family. NICHOLAS HOGUE, RN-Emergency Medicine Medical Director - 07/25/19 15:24:48 12/[address] mrs Frank and she is awake and les shaky today... States she wants to go to rehab for getting strength and balance .. Await JUAN garsia ,, She 's had her 3 Midnight stay in hospital .... LAMBERT Steele RN-Emergency Medicine Medical Director - 07/24/19 15:20:00 REMY LOPEZ, Care Management-Sales Operations Consultant - 07/30/2019 11:55 EST documented in this encounter Plan of Treatment Not on file documented as of this encounter Visit Diagnoses Not on filedocumented in this encounter
--- OUTSIDE RECORDS SUMMARY | 2025-07-20 11:27 | XMS_ITS | Encounter Summary ---
Author Organization [employer] ([place], [place], [place], [place], [place]) Address [address] [place] [address] Care Team Providers Care Blueprinting And Photocopy Supervisor Name Role Phone Unavailable Primary Care Provider Unavailabl e Encounter Details Date Type Department Care Team (Late st Contact Info) Description 07/30/2019 Transcribed Document [facility] Radiology [address] [place] [address] Diaz Vega MD [address] [place], [place] [id number] Social History Tobacco Use Types Packs/Day Years [...] hx cataract surgery bilateral / SNOMED CT 3964001400 / Confirmed high blood pressure / SNOMED CT 6708461541 / Confirmed uses Renexa / SNOMED CT 2205163 / Confirmed hx. chest pain / SNOMED CT 0530779344 / Confirmed high cholesterol / SNOMED CT 16643268 / Confirmed hx colon resection secondary decreased function / SNOMED CT 7729654629 / Confirmed chronic diarrhea / SNOMED CT 214044336 / Confirmed GERD / SNOMED CT 313081266 / Confirmed kidney stone right kidney current and hx / SNOMED CT 169760329 / Confirmed hx. frequent UTIs / SNOMED CT 6390003055 / Confirmed restless leg syndrome / SNOMED CT 15667133 / Confirmed chronic back pain / SNOMED CT 575999748 / Confirmed fibromyalgia / SNOMED CT 78918375 / Confirmed rheumatoid arthritis / SNOMED CT 804609676 / Confirmed Hypothyroidism / SNOMED CT 12311891 / Confirmed depression / SNOMED CT 72873870 / Confirmed migraine headaches / SNOMED CT 089716878 / Confirmed peripheral neuropathy / SNOMED CT 45156402 / Confirmed chronic hydrocort use / SNOMED CT 4721581 / Confirmed Adrenal insufficiency / SNOMED CT 7550860149 / Confirmed Arthritis / SNOMED CT 0469416 / Confirmed Aortic valve stenosis / SNOMED CT 862365944 / Confirmed At risk for sleep apnea / IMO 19106661 / Confirmed Glaucoma / SNOMED CT 59510564 / Confirmed Cataracts, both eyes / SNOMED CT 137159309 / Confirmed Osteoporosis / SNOMED CT 771002232 / Confirmed Seasonal allergies / SNOMED CT 1145033856 / Confirmed Asthma / SNOMED CT 366411016 / Confirmed Vitamin D deficiency / SNOMED CT 73679060 / Confirmed Dementia / SNOMED CT 65528821 / Confirmed Chronic kidney disease / SNOMED CT 3222506435 / Confirmed B12 deficiency / SNOMED CT 312916721 / Confirmed Pneumonia / SNOMED CT 133105466 / Confirmed Resolved: Hypotension / SNOMED CT 46528327 Canceled: adrenal insufficiency / SNOMED CT 4203460490 Canceled: Hyperthyroidism / SNOMED CT 07676MET-[id number], Active Problems (33) Adrenal insufficiency Aortic valve [...] mg, Rectal, 1-Time, PRN: Constipation Flonase: 1 [place], Nostrils Both, BID Florastor: 250 mg, Oral, [...] intl units oral capsule: 1 Cap, Oral, [id number], 0 Refill(s) Dilaudid: pain pump, 0 Refill(s) Flax Seed Oil: 1,200 mg, Oral, BID, 0 Refill(s) Flonase: 1 [place], Nostrils Both, BID Lunesta: 3 mg, Oral, [...] azelastine 205.5 mcg/inh (0.15%) nasal spray: 2 [place], Nasal, BID, PRN: for allergy symptoms, 0 [...] azelastine 205.5 mcg/inh (0.15%) nasal spray 2 [place], PRN, Nasal, BID biotin 5 mg, Oral, [...] 50,000 Int Units = 1 Cap, Oral, [id number] Dilaudid donepezil 23 mg, Oral, Daily famotidine 40 mg, Oral, BID Flax Seed Oil 1,200 mg, Oral, BID Flonase 1 [place], Nostrils Both, BID gabapentin 100 mg oral [...] Oral, QAM fluticasone 0.05% nasal spray 1 [place], Nostrils Both, BID gabapentin 100 mg cap [...]
--- OUTSIDE RECORDS SUMMARY | 2025-07-20 11:28 | XMS_ITS | Clinical Summary ---
Author Organization [facility] Address [address] [place] [address] Phone Care Team Providers Care Industrial Pharmacist Name Role Phone TERRELL PHIPPS, LEOPOLDO Unavailable [phone] HARRIETT PHIPPS, EFFIE Koenig Primary Care Provider [phone] Yareli PHIPPS, Brian Shelton Unavailable [phone] Reason for Visit and Chief Complaint ARCHIBALD Injection Problems Includes: Problems addressed during this encounter and other active Problems All Visits Onset Date Date of Diagnosis Resolved Date Provider Condition Status Joint Pain in Both Knees 11/07/2024 11/07/2024 Missael Avalos PA-C Active Last Documented On 5 1:43AM ; [facility], [facility] Joint Pain Hip Right 06/08/2019 06/08/2019 Violette Newton MD Active Last Documented On 5 1:39AM ; [facility] Joint Pain Shoulder Bilateral 08/20/2017 08/20/2017 Giancarlo Wood MD Active Last Documented On 5 1:39AM ; [facility] Joint Pain Shoulder 06/17/2017 06/17/2017 Amy Jimenez MD Active Last Documented On 5 1:39AM ; [facility] Right Forearm Bone Pain 01/09/2017 01/09/2017 Peace Jimenez MD Active Last Documented On 5 1:38AM ; [facility] Carpal Tunnel Syndrome 03/23/2015 03/23/2015 Hammad Downs MD Active Last Documented On 5 1:38AM ; [facility] Plan of Treatment No Plan of Treatment Recorded Assessments Includes: Assessments from this encounter No Assessments Recorded Medical Equipment - Implanted Devices Includes: Current Devices No Medical Equipment Recorded Medications Includes: Medications discussed during this encounter and other current Medications Current Medications (continue as prescribed) QUEtiapine Fumarate 300 MG Oral Tablet 11/04/2024 Pr ovider: Diagnosis: Last Documented On 5 8:26AM By Kaylynn Philippe ; [facility] amLODIPine Besylate 5 MG Oral Tablet 11/04/2024 Prov ider: LEOPOLDO TEJADA MD Diagnosis: Last Documented On 5 8:26AM By Kaylynn Philippe ; [facility] Rosuvastatin Calcium 20 MG Oral Tablet 11/01/2024 Pr ovider: THOMPSON GOSS MD Diagnosis: Last Documented On 5 8:26AM By Kaylynn Philippe ; [facility] DULoxetine HCl 60 MG Oral Capsule Delayed Releas e Particles 10/28/2024 Provider: Diagnosis: Last Documented On 5 8:26AM By Kaylynn Philippe ; [facility] Donepezil HCl 23 MG Oral Tablet 10/25/2024 Provider: Esther Mathew PA-C Diagnosis: Last Documented On 5 8:26AM By Kaylynn Philippe ; [facility] Trulance 3 MG Oral Tablet 10/23/2024 Provider: YAKOV DIXON MD Diagnosis: Last Documented On 5 8:26AM By Kaylynn Philippe ; [facility] Memantine HCl 10 MG Oral Tablet 10/22/2024 Provider: Esther Mathew PA-C Diagnosis: Last Documented On 5 8:26AM By Kaylynn Philippe ; [facility] lamoTRIgine 100 MG Oral Tablet 10/22/2024 Provider: Esther Mathew PA-C Diagnosis: Last Documented On 5 8:26AM By Kaylynn Philippe ; [facility] Montelukast Sodium 10 MG Oral Tablet 10/18/2024 Prov ider: Diagnosis: Last Documented On 5 8:26AM By Kaylynn Philippe ; [facility] Nitrofurantoin Monohyd Macro 100 MG Oral Capsule 10/17/2024 Provider: Maggi zimmer APRN Diagnosis: Last Documented On 5 8:26AM By Kaylynn Philippe ; [facility] Levothyroxine Sodium 88 MCG Oral Tablet 10/14/2024 P rovider: LEOPOLDO TEJADA MD Diagnosis: Last Documented On 5 8:26AM By Kaylynn hPilippe ; [facility] Dantrolene Sodium 50 MG Oral Capsule 10/13/2024 Prov ider: Suzan Sanchez MD Diagnosis: Last Documented On 5 8:26AM By Kaylynn Philippe ; [facility] Emgality 120 MG/ML Subcutane ous Solution Auto-injector 10/10/2024 Provider: Esther Mathew PA-C Diagnosis: Last Documented On 5 8:26AM By Kaylynn Philippe ; [facility] Pantoprazole Sodium 40 MG Or al Tablet Delayed Release 10/07/2024 Provider: LEOPOLDO TEJADA MD Diagnosis: Last Documented On 5 8:26AM By Kaylynn Philippe ; [facility] busPIRone HCl 5 MG Oral Tablet 10/04/2024 Provider: Suzan Sanchez MD Diagnosis: Last Documented On 5 8:26AM By Kaylynn Philippe ; [facility] Linzess 72 MCG Oral Capsule 10/03/2024 Provider: Maggi Crawford APRN Diagnosis: Last Documented On 5 8:26AM By Kaylynn Philippe ; [facility] Hydrocortisone 5 MG Oral Tablet 09/29/2024 Provider: LEOPOLDO TEJADA MD Diagnosis: Last Documented On 5 8:26AM By Kaylynn Philippe ; [facility] Cefdinir 300 MG Oral Capsule 09/29/2024 Provider: Diagnosis: Last Documented On 5 8:26AM By Kaylynn Philippe ; [facility] Medications Administered Includes: Administered Medications from this encounter No Administered Medications Recorded Results Includes: Results discussed during this encounter No Results Recorded For Specified Dates History of Present Illness Includes: History of Present Illness from this encounter No History of Present Illness Recorded Social History Description Last Updated Sex - Female 01/11/2025 Last Documented On 5 12:16PM ; [facility] Smoking Status Unknown Procedures and Surgical History Includes: Procedures from this encounter Procedures Code Diagnosis Performing Provider Service Location Service Date DRAIN/INJECT, JOINT/BURSA (Bilateral Procedure) Bilateral primary osteoarthritis of knee Missael Avalos [facility] 12/28/2024 Last Documented On 5 1:27PM ; [facility] Durolane Injections (Zero drug amount discarded, not administered to any patient) [id number] Bilateral primary oste[facility] of [facility] 12/28/2024 Last Documented On 5 1:27PM ; [facility] Medical History Includes: Medical History addressed during this encounter No Medical History Recorded Family History Includes: Family History addressed during this encounter No Family History Recorded Review of Systems Includes: Review of Systems from this encounter No Review of Systems Recorded Physical Exam Includes: Physical Exam from this encounter No Physical Exam Recorded Allergies Includes: Active Allergies Substance Type Reaction Onset Date Resolved Date Statu s OTHER Allergy meropenem 06/08/2019 Active Last Documented On 5 8:55AM ; [facility] Lyrica Allergy 03/23/2015 Active Last Documented On 5 8:55AM ; [facility] Keflex Allergy 03/23/2015 Active Last Documented On 5 8:55AM ; [facility] Erythromycin Allergy 03/23/2015 Active Last Documented On 5 8:55AM ; [facility] Codeine Sulfate Allergy 03/23/2015 Act ru Last Documented On 5 8:55AM ; [facility] Clindamycin HCl Allergy 06/08/2019 Act ru Last Documented On 5 8:55AM ; [facility] Cleocin Allergy 03/23/2015 Active Last Documented On 5 8:55AM ; [facility] Cephalexin Allergy 06/08/2019 Active Last Documented On 8:55AM ; [facility] Care Industrial Pharmacist Name (Identifier) Role/Relation Location/Telecom Last Documented By LEOPOLDO TEJADA MD ([id number]) [address], [place], [place], [place], [address] tel:[phone] Last Documented On 01/09/2017 12:46PM ; [facility] EFFIE LORENZANA MD ([id number]) Primary care physician (occupation) [facility] [place], [address] tel:[phone] Last Documented On 01/11/2025 12:16PM ; [facility] Brian Downs MD ([id number]) Assigned practitioner (occupation) [address] [place], [place], [place], [address] tel:[phone] Last Documented On 01/11/2025 12:16PM ; [facility] Encounters Encounter Provider Location (Healthcare Service Location) Date Check-In Time Check-Out Time Diagnosis Encounter Disposition ARCHIBALD Injection Missael Avalos PA-C [facility] 2024 7:48AM 8:29AM Payer Includes: Active Insurance Policies Plan Name (Payer ID) Coverage Type Member ID Group # Subscriber (ID) Relationship Effective Dates 1 - Medicare Part B [facility] ([id number]) [id number] Sandie L [place] 4 - Unknown Last Documented On 9 1:05PM ; [facility] 2 - [facility] ([id number]) [id number] [address] [place] 08/03/19 19 - Unknown Last Documented On 9 1:06PM ; [facility]
--- OUTSIDE RECORDS SUMMARY | 2025-07-20 11:28 | XMS_ITS | Encounter Summary ---
Author Organization [employer] ([place], [place], [place], [place], [place]) Address [address] [place] [address] Care Team Providers Care Forest Pathology Teacher Name Role Phone Unavailable Primary Care Provider Unavailabl e Encounter Details Date Type Department Care Team (Late st Contact Info) Description 07/30/2019 Transcribed Document [facility] [address] [place] [address] ProviderSonia MD [address], [place] [address] Social History Tobacco Use Types Packs/Day Years Used Date Smoking Tobacco: Never Assessed Comments Unknown Sex and Gender Information Value Date Recorded Sex Assigned at Not on file Legal Sex Female 1:42 PM CDT Gender Identity Not on file Sexual Orientation Not on file documented as of this encounter Miscellaneous Notes * Cerner Conversion Note - Historical ProviderMD - 07/30/2019 2:00 AM RADIATOR MECHANIC Slot Service Specialist Details Entered On: 07/30/2019 2:09 EST Performed [...]
--- OUTSIDE RECORDS SUMMARY | 2025-07-20 11:28 | XMS_ITS ---
Care Plan - [facility] Created on: July 20, 2025 Sandie Frank : 1955 Sex: Female Author Organization [facility] Address [address] [place] [address] Phone Care Team Providers Care Sugar Presser Name Role Phone TERRELL PHIPPS, LEOPOLDO Unavailable [phone] HARRIETT PHIPPS, EFFIE Koenig Primary Care Provider [phone] Yareli PHIPPS, Brian Shelton Unavailable [phone]
--- OUTSIDE RECORDS SUMMARY | 2025-07-20 11:28 | XMS_ITS | Encounter Summary ---
Author Organization [employer] ([place], [place], [place], [place], [place]) Address [address] [place] [address] Care Team Providers Care Fine Chemicals Operator Name Role Phone Unavailable Primary Care Provider Unavailabl e Encounter Details Date Type Department Care Team (Late st Contact Info) Description 07/30/2019 Transcribed Document [facility] Medicine [address] [place] [address] ProviderSonia MD [address] [place], [place] [address] Social History Tobacco Use Types Packs/Day Years Used Date Smoking Tobacco: Never Assessed Comments Unknown Sex and Gender Information Value Date Recorded Sex Assigned at Not on file Legal Sex Female 1:42 PM CDT Gender Identity Not on file Sexual Orientation Not on file documented as of this encounter Miscellaneous Notes * Cerner Conversion Note - Sonia ProviderMD - 07/30/2019 2:00 PM DINING ROOM CASHIER Pain Assessment Entered On: 07/30/2019 20:49 EST [...]
== END 2025-07-20 23:59 | disposition home or self-care (01) ==
LOC: RAD 10:23
PROVIDERS: PCP Internal Medicine Adolescent Medicine
DX: M25.511 Pain in right shoulder (principal); Z96.611 Presence of right artificial shoulder joint
CPT/HCPCS: 73030

== ENCOUNTER 2025-07-26 13:00 | Outpatient (RCR) | payer MEDICARE, BC, SELFPAY ==
--- NOTE | 2025-07-10 14:52 | HMH.RHREAS ---
Rehab Reassessment Rehab OP Re-assessment Start: 07/10/25 14:48 Freq: Status: Active Protocol: Document 07/10/25 14:49 MARIE (Rec: 07/10/25 14:52 MARIE [id number]) E-signed By Amna Arizmendi PT Rehab Re-assessment Subjective Subjective Pt has not attended PT in 35 days due to scheduling issues and awaiting recommendations from a neurologist from . Pt poor historian due to frontal lobe dementia although her is present and assisted with subjective history. They state she saw neurology in June who recommended further testing, states she had a EMG/NCV without results yet and is scheduled to have a head/neck scan on 08/23/25. Pt states since her last visit she has had a kidney stone removed and was diagnosed with lower extremity lymphedema by a sales operations manager. Pt states she has a cardiac echo and a stress test on 07/25/25. Pt reports she continues to have double vision all the time and is seeing an manager maritime this Thursday. Pt reports continued severe low back pain rated 8/10 on VAS and constant numbness/tingling of BLE with intermittent electric shock sensations. Pt reports she continues to have pain with any pressure applied to her pain pump. Pt reports she has not seen pain management recently but at her last appointment they did not recommend further intervention for low back pain. Pt reports continued altered postural control in seated and standing requiring her to use a wheelchair as her main form of mobility. Pt states she does walk short distances with a RW and assistance from her at home such as to go to the restroom. Pt denies falls. Objective Objective Notes Observation: altered postural control and dynamic balance in standing>seated Balance/Postural control: pt loses balance forward when looking down, backwards when looking up, and laterally when looking side to side reflected in making turns when ambulating worse without UE support Standing tolerance: able to stand 10' with BUE support with minimal sway, moderate sway noted without BUE support requiring CGA-minAx1 to correct and intermittent knee buckling noted Transfers: CGA to perform sit to stand and stand step transfers with use of one arm, unable to perform sit to stand transfer without UE support Ambulation: 300 ft with CGA-minAx1 with RW on level ground and small grade ramp BLE MMT: 4-/5 grossly, end range weakness noted with MMT with fatigue noted and muscle giving way 5x sit to stand: 25 with one arm support, CGA for safety LE reflexes: diminished Assessment Assessment Notes Pt has not attended PT treatment in 35 days due to scheduling issues and waiting neurologist recommendations. Pt presents as a complex case with multiple comorbidities delaying overall progress. Pt recently had kidney stones removed, was diagnosed with BLE lymphedema, is awaiting cardiac stress and echo testing as well as neurology recommended EMG/NCV results and imaging of her head/neck. Pt continues to report constant severe low back pain, BLE spasms and paresthesia, altered postural control and double vision requiring a wheelchair for her main form of mobility. Overall, the pt would continue to benefit from skilled PT to further improve strength, mobility, transfers, balance/proprioception, postural control and gait to improve overall QOL/function, decrease burden of care and fall risk. PT Patient Goals PT Back Strip Machine Operator Patient 8 weeks: 08/06 Goals 1. BLE MMT to 4/5 grossly to assist with function/gait -NOT MET 2. Perform sit to stand from standard chair I -NOT MET 3. Ambulate 50-100ft I with LRD and proper mechanics to decrease fall risk -NOT MET 4. Improve score to moderate-severe disability category to improve overall QOL - MET 5. Improve pain at worst to 4-6/10 to improve overall QOL -NOT MET (remove goal due to chronicity and severity of low back pain, focus treatment on balance/ gait) Plan Plan Continue initial POC to address remaining deficits Frequency of Therapy 2x/week Duration of Therapy 4 more weeks Therapeutic Exercise Yes Including Home Exercise Program Manual Therapy Yes Techniques Neuromuscular Re- Yes education Therapeutic Yes Activities to Return to Previous Functional/Work Level Gait Training Yes ADL/Self Care Yes Education Group Therapy for Yes Medicare Eval/Re-Eval Yes Time and Billing Re-Eval Time 14 Re-Eval Billing 0 Units Charge for PT No reassessment? Charge for OT No reassessment? PHYSICIAN CERTIFICATION: I certify the specified therapy services for Sandie Frank are required, authorized, and reviewed every 30 days.
== END 2025-07-26 23:59 | disposition home or self-care (01) ==
LOC: PT 13:00
PROVIDERS: PCP Internal Medicine Adolescent Medicine; Visit Provider Internal Medicine Adolescent Medicine
DX: M47.814 Spondylosis without myelopathy or radiculopathy, thoracic region (principal); G60.9 Hereditary and idiopathic neuropathy, unspecified
CPT/HCPCS: 97530

== ENCOUNTER 2025-08-01 13:00 | Outpatient (RCR) | payer MEDICARE, BC, SELFPAY | END 2025-08-01 23:59 | disposition home or self-care (01) | LOC: OT 13:00 | PROVIDERS: PCP Internal Medicine Adolescent Medicine; Visit Provider Internal Medicine Adolescent Medicine | DX: G60.9 Hereditary and idiopathic neuropathy, unspecified (principal); M47.814 Spondylosis without myelopathy or radiculopathy, thoracic region; R27.0 Ataxia, unspecified | CPT/HCPCS: 97032; 97110; 97140; 97530 ==